=== PATIENT | female | born 1950 | race Caucasian/White ===

== ENCOUNTER 2023-02-08 10:22 | Outpatient (OUT) | payer MEDICARE, SELFPAY ==
--- NOTE | 2023-02-08 10:33 | MM_ITS ---
Patient: JOHN ENGLE Exam Date: 02/08/2023 : 1950 Gender:F Ordering : DR JACOB NOEL M.D. Admission #: [id number] Family : DR Mervin Chanel D.O. Order #: [id number] CLICK HERE TO VIEW EXAM RADIOLOGY REPORT PROCEDURE: MM TOMOSYNTHESIS DIAGNOSTIC RT COMPARISON: MG MAMM DX 3D RT CAD, 02/05/2022. INDICATIONS: MALIGNANT NEOPLASM OF UPPER OUTER QUADRANT LT BREAST C50.412 Calculator Name NCI Breast Cancer Risk Assessment Tool 5 Year Breast Cancer Risk n/a% Lifetime Breast Cancer Risk n/a% Personal Breast Cancer Yes, Left breast cancer 2012 Personal Ovarian Cancer No Treatments Left mastectomy, radiation, [id number] Family Cancers Father with testicular cancer at age 27. LOCATION: [facility] BREAST COMPOSITION: Scattered areas fibroglandular density. FINDINGS: DIAGNOSTIC CATEGORY 2--BENIGN FINDING. NO CHANGE FROM COMPARISON. T his exam includes additional mammographic views for implant evaluation and shows no visible implant abnormality. Scattered benign-appearing calcifications are present. RIGHT BREAST: No significant suspicious finding. RECOMMENDATIONS: ROUTINE MAMMOGRAM AND CLINICAL EVALUATION IN 12 MONTHS. PLEASE NOTE: A NORMAL MAMMOGRAM DOES NOT EXCLUDE THE POSSIBILITY OF BREAST CANCER. A CLINICALLY SUSPICIOUS PALPABLE LUMP SHOULD BE BIOPSIED. Dictated by: Doug Lott MD on 02/08/2023 at 11:06 Approved by: Doug Lott MD on 02/08/2023 at 11:23
== END 2023-02-08 10:23 | disposition home or self-care (01) ==
LOC: MAMMO 10:23
PROVIDERS: PCP Internal Medicine; Visit Provider Internal Medicine Hematology & Oncology
DX: C50.412 Malignant neoplasm of upper-outer quadrant of left female breast (principal); Z17.1 Estrogen receptor negative status [ER-]; Z90.12 Acquired absence of left breast and nipple
CPT/HCPCS: 77065; G0279

== ENCOUNTER 2023-02-08 11:15 | Outpatient (OUT) | payer MEDICARE, SELFPAY ==
[2023-02-08 12:05] LABS: Chol HDL Ratio 4.2; Cholesterol 240 mg/dL (<=200); HDL Cholesterol 57 mg/dL (40-60); Triglycerides 197 mg/dL (<=150); VLDL CHOLESTEROL 39.4 mg/dL
== END 2023-02-08 11:16 | disposition home or self-care (01) ==
PROVIDERS: PCP Internal Medicine; Visit Provider Internal Medicine Cardiovascular Disease
DX: I10 Essential (primary) hypertension (principal); I42.8 Other cardiomyopathies; I34.0 Nonrheumatic mitral (valve) insufficiency
CPT/HCPCS: 36415; 80061

== ENCOUNTER 2023-02-08 11:17 | Outpatient (OUT) | payer MEDICARE, SELFPAY ==
[2023-02-08 11:52] LABS: Basophils Absolute Auto 0.1 10^3/uL (0.0-0.1); Basophils Percent Auto 0.7 % (0.2-2.0); Eosinophils Absolute Auto 0.2 10^3/uL (0.0-0.7); Eosinophils Percent Auto 2.4 % (0.9-7.0); Hemoglobin 12.8 g/dL (12.0-16.0); Immature Granulocytes Abs Auto 0.02 10^3/uL (0.00-0.03); Immature Granulocytes Pct Auto 0.3 % (0.0-0.5); Lymphocytes Absolute Auto 1.3 10^3/uL (1.2-3.8); Lymphocytes Percent Auto 19.8 % (20.5-60.0); Mean Corpuscular Hemoglobin 27.6 pg (26.7-34.0); Mean Corpuscular Volume 86.4 fL (81.0-99.0); Mean Platelet Volume 9.5 fL (9.5-13.5); Monocytes Absolute Auto 0.7 10^3/uL (0.3-0.8); Monocytes Percent Auto 11.1 % (1.7-12.0); Neutrophils Absolute Auto 4.4 10^3/uL (1.4-6.5); Neutrophils Percent Auto 65.7 % (43.0-75.0); Platelet Count 295 10^3/uL (150-450); Red Blood Count 4.63 10^6/uL (4.20-5.40); Red Cell Distribution Width 15.5 % (11.0-15.0); White Blood Count 6.7 10^3/uL (4.0-11.0)
[2023-02-08 12:12] LABS: Alanine Aminotransferase 25 U/L (14-59); Albumin Globulin Ratio 0.8; Albumin Level 3.3 g/dL (3.4-5.0); Alkaline Phosphatase 66 U/L (46-116); Anion Gap 8.9; Aspartate Amino Transferase 24 U/L (15-37); Bilirubin Total 0.6 mg/dL (0.2-1.0); Calcium 9.7 mg/dL (8.5-10.1); Carbon Dioxide 33.8 mmol/L (21.0-32.0); Chloride 102 mmol/L (98-107); Estimated GFR (African America >60 (>=60); Estimated GFR (Non-African Ame >60 (>=60); Globulin 3.9 g/dL; Glucose 89 mg/dL (74-106); Potassium 3.7 mmol/L (3.5-5.1); Sodium 141 mmol/L (136-145); Thyroid Stimulating Hormone 1.833 uIU/mL (0.358-3.740); Total Protein 7.2 g/dL (6.4-8.2)
== END 2023-02-08 11:18 | disposition home or self-care (01) ==
LOC: LAB 11:17
PROVIDERS: PCP Internal Medicine; Visit Provider Internal Medicine
DX: I42.8 Other cardiomyopathies (principal); I34.0 Nonrheumatic mitral (valve) insufficiency; I12.9 Hypertensive chronic kidney disease with stage 1 through stage 4 chronic kidney disease, or unspecified chronic kidney disease; R53.83 Other fatigue; N18.31 Chronic kidney disease, stage 3a
CPT/HCPCS: 36415; 80053; 80061; 84443; 85025

== ENCOUNTER 2023-03-03 08:35 | Outpatient (OUT) | payer MEDICARE, SELFPAY ==
[2023-03-03 08:54] LABS: Bilirubin Urine NEGATIVE (NEGATIVE); Blood Urine NEGATIVE (NEGATIVE); Clarity Urine CLEAR (CLEAR); Color Urine YELLOW (YELLOW); Glucose Urine UA NEGATIVE (NEGATIVE); Ketones Urine NEGATIVE (NEGATIVE); Leukocyte Esterase Urine NEGATIVE (NEGATIVE); Nitrite Urine NEGATIVE (NEGATIVE); Protein Urine NEGATIVE (NEG/TRACE); Specific Gravity Urine 1.015 (1.005-1.025)
[2023-03-03 09:01] LABS: Bacteria Urine NONE SEEN #/HPF (NONE SEEN); Cast Seen? NONE SEEN #/LPF (NONE SEEN); Crystals Seen? None Seen #/HPF (None Seen); Mucus Urine NONE SEEN (NONE SEEN); RBC Urine NONE SEEN #/HPF (0-2); Squamous Epithelial Cell Urine RARE #/LPF (NONE/RARE); WBC Urine NONE SEEN #/HPF (NONE SEEN)
== END 2023-03-03 08:36 | disposition home or self-care (01) ==
LOC: LAB 08:37
PROVIDERS: PCP Internal Medicine; Visit Provider Internal Medicine
DX: R30.0 Dysuria (principal)
CPT/HCPCS: 81001; 87086

== ENCOUNTER 2023-03-15 09:25 | Outpatient (OUT) | payer MEDICARE, SELFPAY ==
[2023-03-15 09:49] LABS: Anion Gap 10.1; BUN Creatinine Ratio 38.8; Calcium 8.9 mg/dL (8.5-10.1); Chloride 101 mmol/L (98-107); Estimated GFR (African America 47 (>=60); Estimated GFR (Non-African Ame 39 (>=60); Glucose 84 mg/dL (74-106); Potassium 4.1 mmol/L (3.5-5.1); Sodium 140 mmol/L (136-145)
== END 2023-03-15 09:26 | disposition home or self-care (01) ==
LOC: LAB 09:26
PROVIDERS: PCP Internal Medicine; Visit Provider Internal Medicine Cardiovascular Disease
DX: R60.9 Edema, unspecified (principal)
CPT/HCPCS: 36415; 80048

== ENCOUNTER 2023-06-07 10:30 | Outpatient (RCR) | payer MEDICARE, SELFPAY | END 2023-06-11 10:11 | disposition home or self-care (01) | LOC: PT 10:30 | PROVIDERS: PCP Internal Medicine; Visit Provider Nurse Practitioner Family | DX: M48.062 Spinal stenosis, lumbar region with neurogenic claudication (principal) | CPT/HCPCS: 97110; 97112; 97163 ==

== ENCOUNTER 2023-06-08 14:57 | Outpatient (OUT) | payer MEDICARE, SELFPAY ==
[2023-06-08 15:43] LABS: Anion Gap 10.5; BUN Creatinine Ratio 25.4; Calcium 9.2 mg/dL (8.5-10.1); Carbon Dioxide 32.9 mmol/L (21.0-32.0); Chloride 102 mmol/L (98-107); Estimated GFR (African America 50 (>=60); Estimated GFR (Non-African Ame 42 (>=60); Glucose 92 mg/dL (74-106); Potassium 4.4 mmol/L (3.5-5.1); Sodium 141 mmol/L (136-145)
== END 2023-06-08 14:58 | disposition home or self-care (01) ==
LOC: LAB 15:00
PROVIDERS: PCP Internal Medicine; Visit Provider Internal Medicine
DX: I12.9 Hypertensive chronic kidney disease with stage 1 through stage 4 chronic kidney disease, or unspecified chronic kidney disease (principal); N18.31 Chronic kidney disease, stage 3a
CPT/HCPCS: 36415; 80048; 83880

== ENCOUNTER 2023-09-17 10:04 | Outpatient (OUT) | payer MEDICARE, SELFPAY ==
[2023-09-17 10:50] LABS: Anion Gap 12.5; BUN Creatinine Ratio 42.7; Calcium 9.7 mg/dL (8.5-10.1); Carbon Dioxide 29.7 mmol/L (21.0-32.0); Chloride 102 mmol/L (98-107); Estimated GFR (African America 44 (>=60); Estimated GFR (Non-African Ame 36 (>=60); Glucose 96 mg/dL (74-106); Magnesium 2.5 mg/dL (1.8-2.4); Potassium 4.2 mmol/L (3.5-5.1); Sodium 140 mmol/L (136-145); Thyroid Stimulating Hormone 2.005 uIU/mL (0.358-3.740)
== END 2023-09-17 10:05 | disposition home or self-care (01) ==
LOC: LAB 10:05
PROVIDERS: PCP Internal Medicine; Visit Provider Internal Medicine
DX: G47.62 Sleep related leg cramps (principal); I87.2 Venous insufficiency (chronic) (peripheral); G62.0 Drug-induced polyneuropathy; T45.1X5A Adverse effect of antineoplastic and immunosuppressive drugs, initial encounter
CPT/HCPCS: 36415; 80048; 83735; 84443

== ENCOUNTER 2023-12-14 14:28 | Outpatient (OUT) | payer MEDICARE, SELFPAY ==
--- NOTE | 2023-12-14 14:31 | XR_ITS ---
The [address] [address] Patient Name: JOHN ENGLE MRN: [id number] date: 1950 Sex: F Assigned Patient Location: [facility] Current Patient Location: Accession/Order Number: [id number] Exam Date: 12/14/2023 14:38 Report Date: 12/16/2023 13:13 At the request of: SYLVESTER JACOB Procedure: XR foot LT min 3V PROCEDURE: XR foot LT min 3V HISTORY: Left Foot Pain M79.672 ; dorsal foot pain for several months; no known injury COMPARISON: None. FINDINGS: BONES:Moderate degenerative joint disease of the second through 5th tarsal-metatarsal joints. Bunion formation and mild degenerative joint disease involving the first metatarsophalangeal joint. Large calcaneal plantar spur. SOFT TISSUES:No visible soft tissue swelling. EFFUSION:None visible. OTHER: Negative. XR/XR foot LT min 3V IMPRESSION: 1. Moderate degenerative joint disease and mild bunion formation as detailed above. 2. No acute bone abnormality. Electronically authenticated by: TAMY HOLM Date: 12/16/2023 13:13
== END 2023-12-14 14:29 | disposition home or self-care (01) ==
LOC: RAD 14:28
PROVIDERS: PCP Internal Medicine; Visit Provider Internal Medicine
DX: M79.672 Pain in left foot (principal); M19.072 Primary osteoarthritis, left ankle and foot
CPT/HCPCS: 73630

== ENCOUNTER 2024-02-14 10:24 | Outpatient (OUT) | payer MEDICARE, SELFPAY ==
--- NOTE | 2024-02-14 | MM_ITS ---
Patient Name: JOHN ENGLE MR#: [id number] : 1950 Exam Date: 02/14/2024 Ordering Doctor: DR JACOB NOEL M.D. RADIOLOGY REPORT PROCEDURE: MM TOMOSYNTHESIS DIAGNOSTIC RT COMPARISON: MG MAMM DX 3D RT CAD, 02/05/2022. MM TOMOSYNTHESIS DIAGNOSTIC RT, 02/08/2023. INDICATIONS: Malignant neoplasm of upper-outer quadrant Calculator Name NCI Breast Cancer Risk Assessment Tool 5 Year Breast Cancer Risk n/a% Lifetime Breast Cancer Risk n/a% Personal Breast Cancer Yes, Left breast cancer 2012 Personal Ovarian Cancer No Treatments Left mastectomy, radiation, Family Cancers Father with testicular cancer at age 27. LOCATION: [facility] BREAST COMPOSITION: There are scattered areas of fibroglandular density. FINDINGS: DIAGNOSTIC CATEGORY 2--BENIGN FINDING. NO CHANGE FROM COMPARISON. This exam includes additional mammographic views for implant evaluation and shows no visible implant abnormality. Scattered benign-appearing calcifications are present. RIGHT BREAST: No significant suspicious finding. RECOMMENDATIONS: ROUTINE MAMMOGRAM AND CLINICAL EVALUATION IN 12 MONTHS. PLEASE NOTE: A NORMAL MAMMOGRAM DOES NOT EXCLUDE THE POSSIBILITY OF BREAST CANCER. A CLINICALLY SUSPICIOUS PALPABLE LUMP SHOULD BE BIOPSIED. Dictated by: Doug Lott MD on 02/14/2024 at 11:12 Approved by: Doug Lott MD on 02/14/2024 at 11:15
== END 2024-02-14 10:25 | disposition home or self-care (01) ==
LOC: MAMMO 10:24
PROVIDERS: PCP Internal Medicine; Visit Provider Internal Medicine Hematology & Oncology
DX: C50.412 Malignant neoplasm of upper-outer quadrant of left female breast (principal); Z17.1 Estrogen receptor negative status [ER-]; Z90.12 Acquired absence of left breast and nipple; Z80.43 Family history of malignant neoplasm of testis
CPT/HCPCS: 77065; G0279

== ENCOUNTER 2024-03-23 14:04 | Outpatient (OUT) | payer MEDICARE, SELFPAY ==
--- NOTE | 2024-03-23 14:08 | XR_ITS ---
The [address] [address] Patient Name: JOHN ENGLE MRN: [id number] date: 1950 Sex: F Assigned Patient Location: [facility] Current Patient Location: Accession/Order Number: [id number] Exam Date: 03/23/2024 14:19 Report Date: 03/24/2024 15:50 At the request of: CHUCK COPE Procedure: XR sinus min 3V EXAMINATION: XR sinus min 3V HISTORY: Chronic Sinusitis COMPARISON: No relevant comparison available. FINDINGS: MAXILLARY: Mild mucosal thickening bilaterally. ETHMOID: No appreciable mucosal thickening or fluid level. FRONTAL: Suspect mild mucosal thickening. SPHENOID: No appreciable mucosal thickening or fluid level. OTHER: Negative. XR/XR sinus min 3V IMPRESSION: 1. No fluid levels to suggest acute sinusitis. 2. suspect mild chronic sinusitis of the frontal and maxillary sinuses. Electronically authenticated by: TAMY HOLM Date: 03/24/2024 15:50
== END 2024-03-23 14:05 | disposition home or self-care (01) ==
LOC: RAD 14:04
PROVIDERS: PCP Internal Medicine; Visit Provider Otolaryngology
DX: J32.9 Chronic sinusitis, unspecified (principal)
CPT/HCPCS: 70220

== ENCOUNTER 2024-03-31 09:11 | Outpatient (OUT) | payer MEDICARE, SELFPAY ==
--- OUTSIDE RECORDS SUMMARY | 2024-03-31 09:14 | XMS_ITS | CCD ---
Author Organization [facility] Care Team Providers Care Tree Marker Name Role Phone BRYCE HENDRICKSON Unavailable Unavailable MERVIN JACOB Unavailable Unavailable DO Mervin Jacob Primary Care Provider MD Devin Moreau Attending Provider DO Mervin Jacob Primary Care Provider [phone] MD Devin Moreau Attending Provider Devin Moreau Unavailable Artie Blackburn Unavailable Mervin Jacob Unavailable Unavailable Unavailable DO Mervin Jacob Primary Care Provider MD Devin Moreau Attending Provider [phone] DO Mervin Jacob Primary Care Provider MD Devin Moreau Attending Provider Mervin Jacob DO Primary Care Provider Mervin Jacob Primary Care Unavailabl e Hendrickson, Dr. Bryce Buckley Attending Sangeeta vailable Jonatan, Dr. Bryce Buckley Referring Sangeeta vailable Mervin Jacob Primary Care Unavailabl e Hendrickson, Dr. Bryce Buckley Attending Sangeeta vailable Jonatan, Dr. Bryce Buckley Referring Sangeeta vailable Mervin Jacob Unavailable Vivi Biggs Unavailable LAVON, DR EVELIN Collado Consulting Unavailable NOHEMI, DR AJAY Anglin Admitting Unavailable NIDIA, DR JEFFRIES Primary Care Unavailable NOHEMI, DR AJAY Anglin Attending Unavailable NOHEMI, DR AJAY Anglin Consulting Unavailable ZIEBJUAN CARLOS, DR TAMY Beckman Consulting Unavailable APLINGKIRSTIE Attending Unavailable APLINGKIRSTIE Admitting Unavailable BALL, DR JEFFRIES Primary Care Unavailable APLING, KIRSTIE Madsen Consulting Unavailable BALL, DR JEFFRIES Primary Care Unavailable BALL, DR JEFFRIES Admitting Unavailable BALL, DR JEFFRIES Attending Unavailable BALL, DR JEFFRIES Consulting Unavailable REINECK, DR YOSHI Shah Consulting Unavailabl e REINECK, DR YOSHI Shah Admitting Unavailabl e BALL, DR JEFFRIES Primary Care Unavailable REINECK, DR YOSHI Shah Attending Unavailabl e BALL, DR JEFFRIES Primary Care Unavailable NADERER, DR AYDEE Dey Consulting Unavailable TRISH ., VIVI Attending Unavailable TRISH ., VIVI Admitting Unavailable GEORGIA, SALINA Consulting Unavailable WILSON, EMORY Consulting Unavailable TRISH ., VIVI Consulting Unavailable BALL, DR JEFFRIES Primary Care Unavailable BALL, DR JEFFRIES Admitting Unavailable BALL, DR JEFFRIES Attending Unavailable BALL, DR JEFFRIES Consulting Unavailable Ball, Dr. Mervin Braden Primary Care Bryce Bucio Attending Unavailable Ball, Dr. Mervin Braden Primary Care Bryce Bucio Attending Unavailable DO Mervin Jacob Primary Care Provider MD Devin Moreau Attending Provider Mervin Jacob DO Primary Care Provider Radha Moreau Unavailable DO Mervin Jacob Primary Care Provider MD Devin Moreau Attending Provider MD Radha Moreau Attending Provider NON STAFF Primary Care Provider UnavailMD Jared Allen Other Provider MD Saman Marino Admit Provider MD Saman Marino Attending Provider [phone] PROVIDER, UNKNOWN Attending Unavailable PROVIDER, UNKNOWN Admitting Unavailable MD Devin Moreau Attending Provider DO Mervin Jacob Primary Care Provider JERRICA Biggs Attending Provider Mervin Jacob DO Primary Care Provider Mervin Jacob DO Primary Care Provider NON STAFF Primary Care Provider UnavailJERRICA Berg Attending Provider DO Mervin Jacob Primary Care Provider MD Devin Moreau Attending Provider MD Artie Blackburn Attending Provider Nidia DO Jeffries Primary Care Provider MD Devin Moreau Attending Provider Nidia DO Jeffries Primary Care Provider MD Artie Blackburn Attending Provider Mervin Jacob DO Primary Care Provider MERVIN JACOB E Primary Care Unavailable JOAQUIN MERCADO Referring Unavailable JOAQUIN MERCADO Attending Unavailable NIDIA MERVIN E Primary Care Unavailable JOAQUIN MERCADO Referring Unavailable DO Mervin Jacob Primary Care Provider MD Devin Moreau Attending Provider Moreau Devin E Admitting Unavailable Moreau Devin E Attending Unavailable NON STAFF Primary Care Unavailable Jared Louis Consulting Unavaila Saman Ac Admitting Unavailable Saman Marino Attending Unavailable NON STAFF Primary Care Unavailable Moreau, Devin E Admitting Unavailable Moreau, Devin E Attending Unavailable Ball, Mervin Primary Care Unavailable Moreau, Devin E Admitting Unavailable Moreau, Devin E Attending Unavailable Ball, Mervin Primary Care Unavailable MoreauTerrancee E Attending Unavailable Moreau, Devin E Admitting Unavailable Ball, Mervin Primary Care Unavailable Artie Blackburn Admitting Unavailable Artie Blackburn Attending Unavailable Ball, Mervin Primary Care Unavailable Artie Blackburn Admitting Unavailable Artie Blackburn Attending Unavailable Ball, Mervin Primary Care Unavailable Radha Moreau Admitting Unavailable Radha Moreau Attending Unavailable Moreau, Devin E Admitting Unavailable Moreau, Devin E Attending Unavailable Vivi Biggs Admitting Unavailable Vivi Biggs Attending Unavailable NON STAFF Primary Care Unavailable Moreau, Devin E Admitting Unavailable Moreau, Devin E Attending Unavailable Ball, Mervin Primary Care Unavailable BRYCE HENDRICKSON Referring Unavailable NIDIA, MERVIN E Primary Care Unavailable BRYCE HENDRICKSON Referring Unavailable BALL, MERVIN E Primary Care Unavailable Mervin Jacob MD Primary Care Provider BRYCE HENDRICKSON Attending Unavailable BRYCE HENDRICKSON Referring Unavailable BALL, MERVIN E Primary Care Unavailable ALLEN ENCARNACION Attending Unavailable ALLEN ENCARNACION Attending Unavailable CHUCK COPE Attending Unavailable MERVIN JACOB Referring Unavailable CHUCK COPE Attending Unavailable Allergies Allergy Classification Reported Allergen(s) Allergy Type Date of Onset Reaction(s) Facility HMG-CoA Reductase Inhibitors (statins) (1 source) atorvastatin Drug Allergy 10-19-19 24 [facility] Iodine (and Iodine containting drugs) (1 source) Iodine Drug Allergy 10-19-19 Unknown Reaction [facility] Penicillins (antibiotic) (3 sources) Penicillin Drug Allergy 10-19-19 Unknown Reaction, Comment:Magalie kim [facility] Quinolones (antibiotic) (1 source) levoFLOXacin Drug Allergy 10-19-19 24 Unknown Reaction [facility] (20 sources) atorvastatin; Translations: [atorvastatin] Drug Allergy 09-25-19 22 [facility] (20 sources) Penicillins; Translations: [Penicillins] Allergy to substance 03-05-20 11 [facility] (20 sources) Penicillin G Drug Allergy 06-21-19 24 Unknown, Unknown Reaction [facility] (5 sources) atorvastatin; Translations: [Lipitor] Drug Allergy [facility] 600 DO Work Phone: (5 sources) Hmg-Coa Reductase Inhibitors (Statins); Translations: [Statins] Allergy to drug (finding) [facility] 600 DO Work Phone: (5 sources) atorvastatin; Translations: [ATORVASTATIN CALCIUM] Drug Allergy 03-05-20 11 Itching [facility] (20 sources) Iodine; Translations: [iodine] Drug Allergy 06-21-19 24 Unknown, Unknown Reaction [facility] (1 source) Amoxicillin Drug Allergy [facility] (1 source) Dextroamphetamine Drug Allergy [facility] (20 sources) levoFLOXacin Drug Allergy Unknown [facility] Other (20 sources) Penicillin V Drug Allergy 06-21-19 24 Comment:Magalie kim [facility] (1 source) patient allergy list reviewed by nurse or physicia Propensity to adverse reactions 09-16-19 16 Comment:Done 12Bis Other (5 sources) HMG-CoA reductase inhibitor; Translations: [ZGFKXOE-THI-ACQ REDUCTASE INHIBITORS] Drug Allergy 02-29-20 [facility] Work Phone: (17 sources) levoFLOXacin; Translations: [levofloxacin] Drug Allergy 06-21-19 Unknown Reaction [facility] (1 source) Penicillin Drug Allergy 10-19-19 [facility] (1 source) Penicillin Drug Allergy 10-19-19 [facility] Rep[facility] Medications Current Medications Medication Drug Class(es) Dates Sig (Normalized) Sig (Original) acetaminophen 500 mg oral tablet (20 sources) Start: 04-19-2023 take 500 mg by mouth every four hours Acetaminophen Active 500 MG PO Q4H 0 April 19, 2023 1:00am Start: 04-15-2023 End: 04-19-2023 take 2 tablets by mouth every four hours Acetaminophen (Tylenol) 325 mg Tablet Discontinued 650 MG PO Q4H 0 April 15, 2023 1:00am April 19, 2023 3:08pm Start: 09-24-2021 End: 04-15-2023 take 500 mg by mouth every four hours Acetaminophen Discontinued 500 MG PO Q4H September 24, 2021 12:00am April 15, 2023 9:14am Take with tramadol Start: 09-24-2021 take 500 mg by mouth twice daily Acetaminophen Active 500 MG PO Twice daily September 23, 2021 11:00pm Take with tramadol aspirin 81 mg delayed release oral tablet (20 sources) Platelet Aggregation Inhibitor, Nonsteroidal Anti-inflammatory Drug Start: 05-12-2022 take 81 mg by mouth once daily Aspirin Active 81 MG PO Daily April 09, 2023 1:00am Aspir-Low Active azithromycin 250 mg oral tablet (3 sources) Macrolide Antimicrobial Start: 05-07-2023 Azithromycin 250 MG as directed Orally daily for 5 days May, Active baclofen 20 mg oral tablet (20 sources) gamma-Aminobutyric Acid-ergic Agonist Start: 09-14-2023 take 1 tablet by mouth once daily at bedtime Baclofen Active 0 .ROUTE .COMPLEX 90 September 14, 2023 1:12pm TAKE 1 TABLET BY MOUTH EVERYDAY AT BEDTIME Start: 06-03-2020 End: 09-14-2023 take 20 mg by mouth once daily at bedtime Baclofen Discontinued 20 MG PO Daily at bedtime August 12, 2023 12:00am August 12, 2023 7:49pm Comment on above: Take 1 tablet by kat th daily at bedtime. calcium carbonate 1500 mg oral tablet (5 sources) take 1 tablet by mouth in the morning calcium carbonate (Calcium 600) 600 MG tablet Take 600 mg by mouth in the morning and 600 mg in the evening. Take with meals. Active calcium carbonate 1500 mg / cholecalciferol 0.01 mg oral tablet (20 sources) Vitamin D Start: 2 take 1 tablet by mouth twice daily Calcium Carbonate-Vitamin D3 (Calcium 600 + D(3)) 600 mg-10 mcg (400 unit) Tablet Active 1 TAB PO Twice daily September 24, 2021 12:00am carvedilol 6.25 mg oral tablet (20 sources) alpha-Adrenergic Omi, beta-Adrenergic Omi Start: 4 take 1 tablet by mouth twice daily Carvedilol Active 0 .ROUTE .COMPLEX 180 June 16, 2023 2:53pm TAKE 1 TABLET BY MOUTH TWICE A DAY Start: 06-18-2016 End: 06-16-2023 take 6.25 mg by mouth twice daily Carvedilol Discontinued 6.25 MG PO Twice daily October 04, 2020 12:00am June 16, 2023 2:53pm Comment on above: Take 6.25 mg by mout h twice daily with meals. cetirizine hydrochloride 10 mg oral tablet (9 sources) Histamine-1 Receptor Antagonist Start: 02-29-20 ALLERGY RELIEF, CETIRIZINE, 10 mg tablet 02/28/2021 Active cholecalciferol 0.025 mg oral capsule (5 sources) Vitamin D take 1 capsule by mouth in the morning cholecalciferol (Vitamin D-3) 25 MCG (1000 UT) capsule Take 1,000 Units by mouth in the morning. Active docusate sodium 50 mg / sennosides, skilled nursing 8.6 mg oral tablet (20 sources) Start: 04-15-20 End: 04-19-20 23 take 2 tablets by mouth twice daily Sennosides-Docusate Sodium Active 2 TAB PO Twice daily April 19, 2023 3:07pm doxycycline monohydrate 100 mg oral capsule (11 sources) Tetracycline-class Drug Start: 03-28-20 End: 05-27-19 doxycycline (Monodox) 100 MG capsule Indications: Chronic frontal sinusitis Take 1 capsule (100 mg) by mouth in the morning and 1 capsule (100 mg) before bedtime. Take with at least 8 ounces (large glass) of water, do not lie down for 30 minutes after. 60 capsule 1 03/28/2024 05/27/2024 Active Start: 11-01-2023 take 100 mg by mouth twice daily Doxycycline Hyclate Active 100 MG PO Twice daily 19 02November 01, 2023 12:00am enalapril maleate 2.5 mg oral tablet (20 sources) Angiotensin Converting Enzyme Inhibitor Start: 03-02-2023 End: 03-21-2024 take 2.5 mg by mouth twice daily Enalapril Maleate Active 2.5 MG PO Twice daily March 26, 2023 1:00am fluticasone propionate 0.05 mg/actuat metered dose nasal spray (20 sources) Corticosteroid Start: 01-09-2024 take 2 spray(s) nasal route once daily as needed for congestion Fluticasone Propionate Active 0 .ROUTE .COMPLEX 48 January 09, 2024 8:38am USE 2 SPRAYS IN EACH NOSTRIL ONCE A DAY NEEDED FOR NASAL CONGESTION Start: 10-04-2020 End: 01-09-2024 Fluticasone Propionate Disco ntinued 2 SPRAY INTRANASAL Daily December 15, 2023 1:23pm January 09, 2024 8:38am Start: 01-19-2016 fluticasone (F LONASE) 50 mcg/actuation nasal spray 2 Sprays once daily. 01/19/2016 Active fluticasone (Cut ivate) 0.05 % cream Apply topically 2 (two) times a day. Active take 1 spray(s) nasa l route in the morning fluticasone (Flonase) 50 MCG/ACT nasal spray Administer 1 spray into each nostril in the morning. Shake gently. Before first use, prime pump. After use, clean tip and replace cap.. Active fluticasone (Florian nase) 50 mcg/actuation nasal spray As directed 0 Active Fluticasone Prop ionate 50 MCG/ACT USE 2 SPRAYS IN EACH NOSTRIL ONCE DAILY Nasal Once a day for 90 days Active Fluticasone Prop ionate 50 MCG/ACT USE 2 SPRAYS IN EACH NOSTRIL ONCE DAILY Nasal Once a day for 90 days Active Flonase 50 MCG/A CT SUSP as directed Quantity: 0 Refills: 0 Ordered: 10-Feb-2022 DO Active Comment on above: 2 Sprays once daily. furosemide 20 mg oral tablet (2 sources) Loop Diuretic Start: 04-23-2023 take 1 tablet by mouth every twenty-four hours Furosemide 20 MG 1 tablet Orally Once a day for 30 days Apr, Active gabapentin 300 mg oral capsule (20 sources) Anti-epileptic Agent Start: 06-22-2023 End: 06-16-2024 take 2 capsules by mouth three times daily gabapentin (NEURONTIN) 300 mg capsule Take 2 capsules by mouth three times a day for 360 days. 540 capsule 3 06/22/2023 06/16/2024 Active Start: 09-24-2021 take 600 mg by mouth once luisa y Gabapentin Active 600 MG PO every day at noon September 24, 2021 10:44am Start: 09-24-2021 take 900 mg by mouth twice daily Gabapentin Active 900 MG PO BID@1400,0 September 24, 2021 12:00am Start: 09-24-2021 End: 09-24-2021 Gabapentin Discontinued MG M 2021 12:00am September 24, 2021 10:46am Start: 09-24-2021 take 600 mg by mouth twice daily Gabapentin Active 600 MG PO BID@1400,2200 September 24, 2021 12:00am Start: 10-04-2020 End: 05-06-2023 take 300 mg by mouth once daily in the morning Gabapentin Active 300 MG PO Every morning October 04, 2020 12:00am Start: 10-04-2020 End: 09-24-2021 take 600 mg by mouth once daily at bedtime Gabapentin Discontinued 600 MG PO Daily at bedtime October 04, 2020 12:00am September 24, 2021 10:44am Comment on above: TAKE 1 CAPSULE BY MO UTH IN THE MORNING AND 2 CAPSULES IN THE AFTERNOON AND AT BEDTIME Take 2 capsules by m outh three times a day for 360 days. levoFLOXacin 500 mg oral tablet (2 sources) Quinolone Antimicrobial Start: 2023 End: 2023 take 1 tablet by mouth once daily levoFLOXacin (Levaquin) 500 MG tablet Indications: Chronic sinusitis, unspecified location Take 1 tablet (500 mg) by mouth Daily for 14 days 14 tablet 03/08/2024 03/22/2024 Active loratadine 10 mg oral tablet (8 sources) take 1 tablet by mouth once daily loratadine (Claritin) 10 mg tablet Take 1 tablet (10 mg) by mouth once daily. 0 Active melatonin 10 mg oral tablet (20 sources) Start: 2021 take 10 mg by mouth at bedtime Melatonin Active 10 MG PO Bedtime March 16, 2022 1:00am methylPREDNISolone 4 mg oral tablet (3 sources) Corticosteroid End: 2023 take 1 tablet by mouth in the morning methylPREDNISolone (Medrol) 4 MG tablet Take 4 mg by mouth in the morning. 03/08/2024 Discontinued (Therapy completed) montelukast 10 mg oral tablet (2 sources) Leukotriene Receptor Antagonist Start: 2023 End: 2024 take 1 tablet by mouth at bedtime montelukast (Singulair) 10 MG tablet Indications: Chronic frontal sinusitis Take 1 tablet (10 mg) by mouth at bedtime 90 tablet 3 03/28/2024 03/28/2025 Active Naproxen (6 sources) Nonsteroidal Anti-inflammatory Drug End: 2022 NAPROXEN SODIUM ORAL Take by mouth if needed. 0 03/02/2023 Discontinued (Other) Aleve TABS as ne eded Quantity: 0 Refills: 0 Ordered: 10-Feb-2022 DO Active omeprazole 40 mg delayed release oral capsule (20 sources) Proton Pump Inhibitor Start: 02-24-2024 Omeprazo le Active 0 .ROUTE .COMPLEX February 24, 2024 8:39am TAKE 1 CAPSULE BY MOUTH ONCE A DAY ON EMPTY STOMACH FOLLOWED IN 30 MINUTES BY BREAKFAST FOR 90 DAYS Start: 11-24-2016 End: 02-24-2024 take 20 mg by mouth once daily Omeprazole Discontinued 20 MG PO Daily October 04, 2020 12:00am February 24, 2024 8:40am Omeprazole 40 MG TAKE 1 CAPSULE BY MOUTH ON EMPTY STOMACH FOLLOWED IN 30 MINUTES BY BREAKFAST Oral Once a day for 90 days Active Comment on above: Take 20 mg by mouth once daily. predniSONE 20 mg oral tablet (20 sources) Start: 03-28-2024 End: 04-03-2024 take 1 tablet by mouth in the morning predniSONE (Deltasone) 20 MG tablet Indications: Chronic frontal sinusitis Take 1 tablet (20 mg) by mouth in the morning and 1 tablet (20 mg) before bedtime. Do all this for 6 days. 12 tablet 03/28/2024 04/03/2024 Active Start: 03-08-2024 End: 03-14-2024 take 1 tablet by mouth in the morning predniSONE (Deltasone) 20 MG tablet Indications: Chronic sinusitis, unspecified location Take 1 tablet (20 mg) by mouth in the morning and 1 tablet (20 mg) before bedtime. Do all this for 6 days. 12 tablet 03/08/2024 03/14/2024 Active Start: 01-21-2023 predniSONE 5 M G 1 tablet 3 times a day for 3 days, 1 tablets 2 times a day for 3 days , 1 tablet 1 times a day for 3 days Orally as directed for 9 days Jan, Active Start: 01-07-2023 predniSONE 20 MG 1 tablet Orally twice daily w/ food x 3 days then qd w/ food x 3 days for 6 days Jan, Not-Taking/PRN Start: 04-01-2022 End: 03-26-2023 Prednisone Discontinued 1 do se pk PO per package directions April 01, 2022 1:00am March 26, 2023 2:38pm take 4 tabs for 3 days then take 3 tabs for 3 days then take 2 tabs for 3 days then take 1 tab for 3 days Start: 04-01-2022 End: 03-26-2023 Prednisone Discontinued 1 do se pk PO per package directions April 01, 2022 12:00am March 26, 2023 1:38pm take 4 tabs for 3 days then take 3 tabs for 3 days then take 2 tabs for 3 days then take 1 tab for 3 days Start: 04-01-2022 Prednisone Act segundo 1 dose pk PO per package directions April 01, 2022 1:00am take 4 tabs for 3 days then take 3 tabs for 3 days then take 2 tabs for 3 days then take 1 tab for 3 days Start: 04-01-2022 Prednisone Act segundo 1 dose pk PO per package directions April 01, 2022 12:00am take 4 tabs for 3 days then take 3 tabs for 3 days then take 2 tabs for 3 days then take 1 tab for 3 days Start: 10-09-2021 Prednisone Act segundo 1 dose pk PO per package directions October 09, 2021 12:22pm take 4 tabs for 3 days then take 3 tabs for 3 days then take 2 tabs for 3 days then take 1 tab for 3 days Start: 10-09-2021 End: 03-16-2022 Prednisone Discontinued 1 do se pk PO per package directions October 09, 2021 12:00am March 16, 2022 12:00pm take 4 tabs for 3 days then take 3 tabs for 3 days then take 2 tabs for 3 days then take 1 tab for 3 days Start: 10-09-2021 End: 03-16-2022 Prednisone Discontinued 1 do se pk PO per package directions October 08, 2021 11:00pm March 16, 2022 11:00am take 4 tabs for 3 days then take 3 tabs for 3 days then take 2 tabs for 3 days then take 1 tab for 3 days torsemide 20 mg oral tablet (20 sources) Loop Diuretic Start: 03-02-2023 End: 03-01-2024 take 20 mg by mouth once daily Torsemide Active 20 MG PO Daily March 26, 2023 1:00am take 1 tablet by mouth once luisa y torsemide (Demadex) 10 MG tablet Take 10 mg by mouth Daily Active Comment on above: Take 1 tablet by kat th every afternoon. traMADol hydrochloride 50 mg oral tablet (20 sources) Opioid Agonist Start: 06-29-2023 End: 10-11-2023 take 50 mg by mouth every six hours Tramadol Active 50 MG PO Every 6 hours October 11, 2023 6:08pm Start: 11-04-2021 End: 04-01-2022 take 50 mg by mouth twice daily Tramadol Discontinued 50 MG PO Twice daily March 16, 2022 1:00am April 01, 2022 11:36am Start: 03-18-2021 End: 04-15-2023 take 50 mg by mouth every six hours Tramadol Discontinued 50 MG PO Q6H March 26, 2023 1:00am April 15, 2023 9:14am Start: 10-04-2020 End: 10-09-2021 take 50 mg by mouth twice daily Tramadol Discontinued 50 MG PO Twice daily October 04, 2020 12:00am October 09, 2021 12:22pm Comment on above: every 6 hours as nee ded. traZODone hydrochloride 50 mg oral tablet (20 sources) Serotonin Reuptake Inhibitor Start: take 0.5-1 tablets by mouth once daily at bedtime Trazodone Active 0 .ROUTE .COMPLEX 90 December 31, 2023 1:35pm TAKE 1/2 - 1 TABLET BY MOUTH EVERYDAY AT BEDTIME Start: 12-31-2023 End: 12-31-2023 take 0.5-1 tablets by mouth once daily at bedtime Trazodone Discontinued 50 MG PO Daily at bedtime December 31, 2023 12:00am December 31, 2023 1:35pm 1/2 to 1 tablet Start: 03-26-2023 End: 04-19-2023 take 50 mg by mouth once daily at bedtime Trazodone Discontinued 50 MG PO Daily at bedtime March 26, 2023 1:00am April 19, 2023 3:08pm Completed/Discontinued Medications Medication Drug Class(es) Dates Sig (Normalized) Sig (Original) aluminum hydroxide 40 mg/ml / magnesium hydroxide 40 mg/ml / simethicone 4 mg/ml oral suspension (18 sources) Start: 04-15-2023 End: 04-19-2023 take 1 mL by mouth every four hours Alum-Mag Hydroxide-Simeth (Mag-Al Plus) 200-200-20 mg/5 mL Suspension Discontinued 30 ML PO Q4H 0 April 15, 2023 1:00am April 19, 2023 3:08pm cephalexin 500 mg oral capsule (20 sources) Cephalosporin Antibacterial Start: 10-09-2021 End: 03-16-2022 take 500 mg by mouth three times daily Cephalexin Discontinued 500 MG PO Three times daily October 09, 2021 12:00am March 16, 2022 11:56am cyclobenzaprine hydrochloride 10 mg oral tablet (20 sources) Muscle Relaxant Start: 04-15-2023 End: 05-07-2024 take 10 mg by mouth every eight hours Cyclobenzaprine Discontinued 10 MG PO Every 8 hours 30 April 19, 2023 3:07pm September 07, 2023 7:30am Start: 04-01-2022 End: 03-26-2023 take 10 mg by mouth three times daily Cyclobenzaprine Discontinued 10 MG PO Three times daily 40 April 01, 2022 1:00am March 26, 2023 2:36pm Start: 10-09-2021 End: 03-16-2022 take 10 mg by mouth three times daily Cyclobenzaprine Discontinued 10 MG PO Three times daily 40 October 09, 2021 12:00am March 16, 2022 11:58am hydroCHLOROthiazide 25 mg oral tablet (20 sources) Thiazide Diuretic Start: 04-17-2020 End: 04-19-2023 take 25 mg by mouth once daily Hydrochlorothiazide Discontinued 25 MG PO Daily October 04, 2020 12:00am April 19, 2023 3:08pm End: 03-02-2023 take 1 capsule by mouth once daily hydroCHLOROthiazide (Microzide) 12.5 mg capsule Take 1 capsule (12.5 mg) by mouth once daily. 0 03/02/2023 Discontinued (Therapy completed) Comment on above: Take 25 mg by mouth once daily. iv contrast (will be provided with radiology test) (3 sources) Start: 05-09-2020 End: 06-22-2023 iv contrast (will be provided with radiology test) Indications: Presacral mass MRI Pelvis Inject, intravenously, once for 1 dose. No IV access, insert saline lock prior to the beginning of sedation, infusion, injection of imaging exam. Discontinue saline lock post exam. If Pt has a central line or IVAD, may access for administration according to line specific nursing protocol. Once exam is complete flush line and de-access according to line specific nursing protocol in the MR contrast administration guidelines link. 1 Each 0 05/09/2020 06/22/2023 Discontinued (Discontinued by Patient) Start: 05-09-2020 iv contrast (w ill be provided with radiology test) Indications: Presacral mass MRI Pelvis Inject, intravenously, once for 1 dose. No IV access, insert saline lock prior to the beginning of sedation, infusion, injection of imaging exam. Discontinue saline lock post exam. If Pt has a central line or IVAD, may access for administration according to line specific nursing protocol. Once exam is complete flush line and de-access according to line specific nursing protocol in the MR contrast administration guidelines link. 1 Each 0 05/09/2020 Active Comment on above: MRI Pelvis Inject, i ntravenously, once for 1 dose. No IV access, insert saline lock prior to the beginning of sedation, infusion, injection of imaging exam. Discontinue saline lock post exam. If Pt has a central line or IVAD, may access for administration according to line specific nursing protocol. Once exam is complete flush line and de-access according to line specific nursing protocol in the MR contrast administration guidelines link. latanoprost 0.05 mg/ml ophthalmic solution (20 sources) Prostaglandin Analog Start: End: 2 take 1 drop(s) into the eye(s) once daily Latanoprost Discontinued 1 DROPS EYE-BOTH Daily October 04, 2020 12:00am March 16, 2022 11:59am Start: 11-18-2019 End: 06-23-2023 take 1 drop(s) into the eye(s) once daily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 [address] [place] [address] XRay Report Signed Patient: Renuka Owen MR#: [id number] 982 : 1950 Acct:[id number] Age/Sex: 73 / F ADM Date: 02/08/24 Loc: XD Room: Type: [facility] Attending Dr: Devin Moreau MD Copies to: Devin Moreau MD Ordering Provider: Devin Moreau MD Date of Service: 02/08/24 XR/XR lumbar spine 2-3V*: M47.816 - Spondylosis without myelopathy or radiculopathy... 2 views Lumbar Spine HISTORY: Spondylosis lumbar spine COMPARISON: 10/19/2023 POSTSURGICAL CHANGES: L3-4 posterior fusion hardware. L3-4 and L4-5 interbody fusion changes. No hardware failure. Cholecystectomy. BONY ALIGNMENT: Similar scoliosis HYPERMOBILITY:No bending imaging. LISTHESIS:Similar mild degenerative listhesis FRACTURE: None DEGENERATIVE CHANGES: Similar extensive degenerative changes SOFT TISSUES: Unremarkable BONY MINERALIZATION:[place] te XR/XR lumbar spine 2-3V* IMPRESSION: Stable degenerative and postsurgical changes. Impression dictated by: Alvaro Reid M.D.02/08/2024 3:23 PM Dictation Location: [place] [address] Transcribed By: [facility] 02/08/24 1523 Dictated By: Alvaro Reid DO 02/08/24 1520 Signed By: 02/08/24 1523 Normal [facility] TRANSTHORACIC ECHO (TTE) COM PLETEon 01-18-2024 TRANSTHORACIC ECHO (TTE) COMPLETE [address], Suite [facility], [place] [address] TRANSTHORACIC ECHOCARDIOGRAM REPORT Patient Name: RENUKA OWEN Reading Physician: [id number] Bryce Hendrickson MD, [facility] Study Date: 01/18/2024 Ordering Provider: [id number] BRYCE HENDRICKSON MRN/PID: [id number] Fellow: Nurse: Date of /Age: 8 1950 / 73 years Bilingual Medical Receptionist: MARICEL Gender: F Additional Staff: Height: 154.94 cm Admit Date: Weight: 71.22 kg Admission Status: BSA / BMI: 1.70 m2 / 29.67 kg/m2 Department Location: [facility] Blood Pressure: 110 /68 mmHg Study Type: TRANSTHORACIC ECHO (TTE) COMPLETE Diagnosis/ICD: Nonrheumatic mitral (valve) insufficiency-I34.0 Indication: Abnormal EKG-LBBB, HTN, Overweight CPT Codes: Echo Complete w Full Doppler-[id number] Study Detail: The following Echo studies were performed: 2D, M-Mode, Doppler and color flow. PHYSICIAN INTERPRETATION: Left Ventricle: The left ventricular systolic function is mildly decreased, with a visually estimated ejection fraction of 50%. The left ventricular cavity size is normal. Spectral Doppler shows a normal pattern of left ventricular diastolic filling. There is an elevated mean left atrial pressure. Septal motion suggests conduction abnormalities. Left Atrium: The left atrium is normal in size. Right Ventricle: The right ventricle is normal in size. There is normal right ventricular global systolic function. Right Atrium: The right atrium is normal in size. Aortic Valve: The aortic valve is trileaflet. The aortic valve dimensionless index is 0.53. There is no evidence of aortic valve regurgitation. The peak instantaneous gradient of the aortic valve is 9.0 mmHg. The mean gradient of the aortic valve is 5.0 mmHg. Mitral Valve: The mitral valve is moderately thickened. There is moderate mitral valve regurgitation. Tricuspid Valve: The tricuspid valve is structurally normal. There is mild to moderate tricuspid regurgitation. Estimated RVSP 43 mmHg consistent with mild pulmonary hypertension. Pulmonic Valve: The pulmonic valve is structurally normal. There is no indication of pulmonic valve regurgitation. Pericardium: No pericardial effusion noted. Aorta: The aortic root is normal. Systemic Veins: The inferior vena cava appears normal in size. In comparison to the previous echocardiogram(s): When compared to study from 01/25/2023, no significant interval changes were seen. CONCLUSIONS: 1. The left ventricular systolic function is mildly decreased, with a visually estimated ejection fraction of 50%. 2. There is an elevated mean left atrial pressure. 3. Septal motion suggests conduction abnormalities. 4. There is normal right ventricular global systolic function. 5. The mitral valve is moderately thickened. 6. Moderate mitral valve regurgitation. 7. Estimated RVSP 43 mmHg consistent with mild pulmonary hypertension. 8. Mild to moderate tricuspid regurgitation. QUANTITATIVE DATA SUMMARY: 2D MEASUREMENTS: Normal Ranges: Ao Root d: 2.40 cm (2.0-3.7cm) LAs: 3.50 cm (2.7-4.0cm) RVIDd: 3.69 cm (0.9-3.6cm) IVSd: 0.90 cm (0.6-1.1cm) LVPWd: 0.87 cm (0.6-1.1cm) LVIDd: 3.80 cm (3.9-5.9cm) LVIDs: 2.92 cm LV Mass Index: 58.1 g/m2 LV % FS 23.2 % LV SYSTOLIC FUNCTION BY 2D PLANIMETRY (MOD): Normal Ranges: EF-A4C View: 65 % (>=55%) EF-A2C View: 63 % EF-Biplane: 61 % EF-Visual: 50 % LV EF Reported: 50 % LV DIASTOLIC FUNCTION: Normal Ranges: MV Peak E: 1.15 m/s (0.7-1.2 m/s) MV Peak A: 1.40 m/s (0.42-0.7 m/s) E/A Ratio: 0.82 (1.0-2.2) MV e' 0.082 m/s (>8.0) MV lateral e' 0.11 m/s MV medial e' 0.05 m/s E/e' Ratio: 13.97 (<8.0) MITRAL VALVE: Normal Ranges: MV Vmax: 1.49 m/s (<=1.3m/s) MV peak P.9 mmHg (<5mmHg) MV mean P.0 mmHg (<48mmHg) MITRAL INSUFFICIENCY: Normal Ranges: MR Vmax: 469.00 cm/s dP/dt: 454 mmHg/s (>1200mmHg/sec) AORTIC VALVE: Normal Ranges: AoV Vmax: 1.50 m/s (<=1.7m/s) AoV Peak P.0 mmHg (<20mmHg) AoV Mean P.0 mmHg (1.7-11.5mmHg) LVOT Max Benjamin: 0.72 m/s (<=1.1m/s) AoV VTI: 31.50 cm (18-25cm) LVOT VTI: 16.60 cm LVOT Diameter: 1.90 cm (1.8-2.4cm) AoV Area, VTI: 1.49 cm2 (2.5-5.5cm2) AoV Area,Vmax: 1.36 cm2 (2.5-4.5cm2) AoV Dimensionless Index: 0.53 TRICUSPID VALVE/RVSP: Normal Ranges: Peak TR Velocity: 2.86 m/s RV Syst Pressure: 36 mmHg (< 30mmHg) PULMONIC VALVE: Normal Ranges: PV Max Benjamin: 0.7 m/s (0.6-0.9m/s) PV Max P.8 mmHg [id number] Bryce Hendrickson MD, [facility] Electronically signed on 02/02/2024 at 4:37:36 PM Final [facility] CNPMalinda 01-06-2024 CNPN Telephone (HEMTSA) RENUKA OWEN ([id number]) 1950 F Date Time Provider Department 01/06/24 MERCED WILL During your visit today, we recorded the following information about you: Merced Will RN 01/06/2024 11:46 AM Signed Pt calls to ask when her mammogram is due. Pt's record reviewed. Last Mamm done on 02/08/23 @ [facility]. 12 month f/u recommended. Order for Mamm faxed to [facility] on 06/22/23. Pt notified of the above. Advised she call [facility] to schedule. Pt verbalizes understanding and agrees. Merced Will RN Allergies As of Date: 01/06/2024 Noted Allergy Reaction PENICILLINS 03/05/2011 4 - Hives LIPITOR (ATORVASTATIN CALCIUM) 03/05/2011 9 - Itching Date Reviewed: 05/19/2022 Reviewed by: Alexandra Bueno MA - Fully Assessed Reason for Visit: Radiology Mammogram [1485] Prescriptions as of 01/06/2024 - torsemide (DEMADEX) 20 mg tablet Take 1 tablet by mouth every afternoon. - gabapentin (NEURONTIN) 300 mg capsule Take 2 capsules by mouth three times a day for 360 days. - gabapentin (NEURONTIN) 300 mg capsule TAKE 1 CAPSULE BY MOUTH IN THE MORNING AND 2 CAPSULES IN THE AFTERNOON AND AT BEDTIME - ALLERGY RELIEF, CETIRIZINE, 10 mg tablet - traMADol (ULTRAM) 50 mg tablet every 6 hours as needed. - baclofen (LIORESAL) 20 mg tablet Take 1 tablet by mouth daily at bedtime. - hydroCHLOROthiazide (HYDRODIURIL, ESIDRIX) 25 mg tablet Take 25 mg by mouth once daily. - omeprazole (PRILOSEC) 20 mg capsule Take 20 mg by mouth once daily. - carvedilol (COREG) 6.25 mg tablet Take 6.25 mg by mouth twice daily with meals. - fluticasone (FLONASE) 50 mcg/actuation nasal spray 2 Sprays once daily. 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,*03/30/2012 Breast cancer [C50.919] 03/30/2012 Breast cancer, left breast [C50.912] Hypercholesteremia [E78.00] Hypertension [I10] Osteoarthritis [M19.90] Bundle branch block, left [I44.7] Mild depression [F32.A] S/P left mastectomy [Z90.12] History of breast cancer [Z85.3] 10/09/2014 GERD (gastroesophageal reflux disease) [K21.9] 06/03/2020 CKD (chronic kidney disease) [N18.9] 06/03/2020 Obesity, Class I, BMI 30-34.9 [E66.9] 06/18/2020 Rectal tumor [D49.0] 06/19/2020 06/20/2020 Encounter Status:Closed by MERCED WILL on 01/06/24 Normal [facility] XR lumbar spine 2-3V*on 10-01 XR lumbar spine 2-3V* [facility] [address] [place] [address] XRay Report Signed Patient: Renuka Owen MR#: [id number] 982 : 1950 Acct:[id number] Age/Sex: 72 / F ADM Date: 10/19/23 Loc: XD Room: Type: [facility] Attending Dr: Devin Moreau MD Copies to: Devin Moreau MD Ordering Provider: Devin Moreau MD Date of Service: 10/19/23 XR/XR lumbar spine 2-3V*: M51.36 - Other intervertebral disc degeneration, lumbar r... LUMBAR SPINE - 2 views COMPARISON: 07/20/2023 CLINICAL DATA: Low back pain. Follow-up after surgery. AP and lateral standing views were obtained. There is osteopenia. Levoscoliotic curvature is again noted. There is prior laminectomy at L4 and L5. There are posterior rods at L3-4. There are interbody fusion devices at L3-4 and L4-5. The hardware appears intact and unchanged from the prior. There is continued slight retrolisthesis of L1 on L2 and L2 on L3 and anterolisthesis of L4 on L5 and L5 on S1. There is disc space narrowing at the unfused levels. There are small endplate spurs. There is facet disease. The SI joints are intact. No paraspinal soft tissue abnormalities are present. XR/XR lumbar spine 2-3V* IMPRESSION: OSTEOPENIA, SCOLIOSIS, POSTOPERATIVE AND DEGENERATIVE CHANGES SIMILAR TO THE PRIOR. Impression dictated by: Megan Wang M.D.10/19/2023 2:51 PM Dictation Location: [place] [address] Transcribed By: [facility] 10/19/23 1451 Dictated By: Megan Wang MD 10/19/23 1443 Signed By: 10/19/23 1451 Normal [facility] Estimated glomerular filtrat ion rate (GFR) non- Americanon 09-17-2023 GFR/1.73 sq M.predicted among non-blacks MDRD (S/P/Bld) [Vol rate/Area] 36 mL/min/{1.73_m2} Low >=60 [facility] Laboratory - Chemistry and C hemistry - challengeon 09-17-2023 Calcium [Mass/Vol] 9.7 mg/dL 8.5-10.1 [facility] Chloride [Moles/Vol] 102 mmol/L 98-107 [facility] CO2 [Moles/Vol] 29.7 mmol/L 21.0-32.0 [facility] Creatinine [Mass/Vol] 1.43 mg/dL High 0.55-1.02 [facility] GFR/1.73 sq M.predicted MDRD (S/P/Bld) [Vol rate/Area] 44 mL/min/{1.73_m2} Low >=60 [facility] Glucose [Mass/Vol] 96 mg/dL 74-106 [facility] Magnesium [Mass/Vol] 2.5 mg/dL High 1.8-2.4 [facility] Potassium [Moles/Vol] 4.2 mmol/L 3.5-5.1 [facility] Sodium [Moles/Vol] 140 mmol/L 136-145 [facility] TSH Qn 2.005 m[IU]/L 0.358-3.740 [facility] Urea nitrogen [Mass/Vol] 61.0 mg/dL High 7.0-18.0 [facility] Urea nitrogen/Creatinine [Mass ratio] 42.7 mg/mg [facility] Serum or plasma anion gap de terminationon 09-17-2023 Anion gap [Moles/Vol] 12.5 mmol/L [facility] XR lumbar spine 2-3V*on 07-01 XR lumbar spine 2-3V* [facility] [place] [place] [address] XRay Report Signed Patient: Renuka Owen MR#: [id number] 982 : 1950 Acct:[id number] Age/Sex: 72 / F ADM Date: 07/20/23 Loc: XD Room: Type: [facility] Attending Dr: Devin Moreau MD Copies to: Devin Moreau MD Ordering Provider: Devin Moreau MD Date of Service: 07/20/23 XR/XR lumbar spine 2-3V*: M43.16 - Spondylolisthesis, lumbar region LUMBAR SPINE - 2 views COMPARISON: 05/26/2023 CLINICAL DATA: Follow-up lumbar fusion. Low back pain. Standing AP and lateral views were obtained. There is osteopenia. Thoracolumbar levoscoliotic curvature is again noted. There is prior laminectomy and fusion with posterior rods, pedicle screws and an interbody fusion device at L3-4. There is also an interbody fusion device at L4-5. No acute fractures are noted. There is still approximately 4 mm of retrolisthesis of L2 on L3 and anterolisthesis of L4 on L5. There is also minor anterolisthesis of L5 on S1. There is multilevel disc space narrowing. Tiny endplate spurs are present. Facet disease is also seen. The SI joints are intact. No paraspinal soft tissue abnormalities are present. XR/XR lumbar spine 2-3V* IMPRESSION: OSTEOPENIA, SCOLIOSIS, POSTOPERATIVE AND DEGENERATIVE CHANGES. FINDINGS ARE SIMILAR TO THE COMPARISON. Impression dictated by: Megan Wang M.D.07/20/2023 12:41 PM Dictation Location: [place] [address] Transcribed By: [facility] 07/20/23 1241 Dictated By: Megan Wang MD 07/20/23 1239 Signed By: 07/20/23 1241 Normal [facility] Basophils Auto (Bld) [#/Vol] on 06-22-2023 Basophils (Bld) [#/Vol] 0.05 10*3/uL <0.11 [facility] Basophils/100 WBC Auto (Bld) on 06-22-2023 Basophils/100 WBC (Bld) 0.8 % F [facility] Blood manual differential co mment interpretation narrativeon 06-22-2023 Manual differential comment Mckay (Bld) [Interp] Auto [facility] CBC W Auto Differential pane l (Bld)on 06-22-2023 Basophils (Bld) [#/Vol] 0.05 10*3/uL Normal <0.11 [facility] Comment on above: Order Comment: Speci men Type: BLOOD SPECIMEN Ordering Facility: [facility] Address: [address] [place] [address] Performed By: #### 5 7021-8 #### [facility] CLIA [id number] [address] [place] [address]48 Basophils/100 WBC (Bld) 0.8 % Normal [facility] Comment on above: Order Comment: Speci men Type: BLOOD SPECIMEN Ordering Facility: [facility] Address: [address] [place] [address] Performed By: #### 5 7021-8 #### [facility] CLIA [id number] [address] [place] [address] 03287 Differential cell count method Nom (Bld) Auto Normal [facility] Comment on above: Order Comment: Speci men Type: BLOOD SPECIMEN Ordering Facility: [facility] Address: [address] [place] [address] Performed By: #### 5 7021-8 #### [facility] CLIA [id number] [address] [place] [address] 94734 Eosinophils (Bld) [#/Vol] 0.37 10*3/uL Normal <0.46 [facility] Comment on above: Order Comment: Speci men Type: BLOOD SPECIMEN Ordering Facility: [facility] Address: [address] [place] [address] Performed By: #### 5 7021-8 #### [facility] CLIA [id number] [address] [place] [address] 00711 Eosinophils/100 WBC (Bld) 5.8 % Normal [facility] Comment on above: Order Comment: Speci men Type: BLOOD SPECIMEN Ordering Facility: [facility] Address: [address] [place] [address] Performed By: #### 5 7021-8 #### [facility] CLIA [id number] [address] [place] [address] 48362 Erythrocyte distribution width (RBC) [Ratio] 14.9 % Normal 11.5-15.0 [facility] Comment on above: Order Comment: Speci men Type: BLOOD SPECIMEN Ordering Facility: [facility] Address: [address] [place] [address] Performed By: #### 5 7021-8 #### [facility] CLIA [id number] [address] [place] [address] 26127 Hematocrit (Bld) [Volume fraction] 36.0 % Normal 36.0-46.0 [facility] Comment on above: Order Comment: Speci men Type: BLOOD SPECIMEN Ordering Facility: [facility] Address: [address] [place] [address] Performed By: #### 5 7021-8 #### [facility] CLIA [id number] [address] [place] [address] 83630 Hemoglobin (Bld) [Mass/Vol] 11.4 g/dL Low 11.5-15.5 [facility] Comment on above: Order Comment: Speci men Type: BLOOD SPECIMEN Ordering Facility: [facility] Address: [address] [place] [address] Performed By: #### 5 7021-8 #### [facility] CLIA [id number] [address] [place] [address] 48695 Immature granulocytes (Bld) [#/Vol] 10*3/uL Normal <0.10 [facility] Comment on above: Order Comment: Speci men Type: BLOOD SPECIMEN Ordering Facility: [facility] Address: [address] [place] [address] Performed By: #### 5 7021-8 #### [facility] CLIA [id number] [address] [place] [address] 60387 Immature granulocytes/100 WBC (Bld) 0.2 % Normal [facility] Comment on above: Order Comment: Speci men Type: BLOOD SPECIMEN Ordering Facility: [facility] Address: [address] [place] [address] Performed By: #### 5 7021-8 #### [facility] CLIA [id number] [address] [place] [address] 15801 Lymphocytes (Bld) [#/Vol] 1.86 10*3/uL Normal 1.00-4.00 [facility] Comment on above: Order Comment: Speci men Type: BLOOD SPECIMEN Ordering Facility: [facility] Address: [address] [place] [address] Performed By: #### 5 7021-8 #### [facility] CLIA [id number] [address] [place] [address] 67487 Lymphocytes/100 WBC (Bld) 28.9 % Normal [facility] Comment on above: Order Comment: Speci men Type: BLOOD SPECIMEN Ordering Facility: [facility] Address: [address] [place] [address] Performed By: #### 5 7021-8 #### [facility] CLIA [id number] [address] [place] [address] 41608 MCH (RBC) [Entitic mass] 27.5 pg Normal 26.0-34.0 [facility] Comment on above: Order Comment: Speci men Type: BLOOD SPECIMEN Ordering Facility: [facility] Address: [address] [place] [address] Performed By: #### 5 7021-8 #### [facility] CLIA [id number] [address] [place] [address] 79052 MCHC (RBC) [Mass/Vol] 31.7 g/dL Normal 30.5-36.0 [facility] Comment on above: Order Comment: Speci men Type: BLOOD SPECIMEN Ordering Facility: [facility] Address: [address] [place] [address] Performed By: #### 5 7021-8 #### [facility] CLIA [id number] [address] [place] [address] 96044 MCV (RBC) [Entitic vol] 86.7 fL Normal 80.0-100.0 C [facility] Comment on above: Order Comment: Speci men Type: BLOOD SPECIMEN Ordering Facility: [facility] Address: [address] [place] [address] Performed By: #### 5 7021-8 #### [facility] CLIA [id number] [address] [place] [address] Monocytes (Bld) [#/Vol] 0.72 10*3/uL Normal <0.87 [facility] Comment on above: Order Comment: Speci men Type: BLOOD SPECIMEN Ordering Facility: [facility] Address: [address] [place] [address] Performed By: #### 5 7021-8 #### [facility] CLIA [id number] [address] [place] [address] 94465 Monocytes/100 WBC (Bld) 11.2 % Normal [facility] Comment on above: Order Comment: Speci men Type: BLOOD SPECIMEN Ordering Facility: [facility] Address: [address] [place] [address] Performed By: #### 5 7021-8 #### [facility] CLIA [id number] [address] [place] [address] 39488 Neutrophils (Bld) [#/Vol] 3.42 10*3/uL Normal 1.45-7.50 [facility] Comment on above: Order Comment: Speci men Type: BLOOD SPECIMEN Ordering Facility: [facility] Address: [address] [place] [address] Performed By: #### 5 7021-8 #### [facility] CLIA [id number] [address] [place] [address] 03293 Neutrophils/100 WBC (Bld) 53.1 % Normal [facility] Comment on above: Order Comment: Speci men Type: BLOOD SPECIMEN Ordering Facility: [facility] Address: [address] [place] [address] Performed By: #### 5 7021-8 #### [facility] CLIA [id number] [address] [place] [address] 20394 Nucleated RBC (Bld) [#/Vol] 10*3/uL Normal <0.01 [facility] Comment on above: Order Comment: Speci men Type: BLOOD SPECIMEN Ordering Facility: [facility] Address: [address] [place], [place] [address] Performed By: #### 5 7021-8 #### [facility] CLIA [id number] [address] [place] [address] 09613 Nucleated RBC/100 WBC (Bld) [Ratio] 0.0 /100 WBC Normal [facility] Comment on above: Order Comment: Speci men Type: BLOOD SPECIMEN Ordering Facility: [facility] Address: [address] [place] [address] Performed By: #### 5 7021-8 #### [facility] CLIA [id number] [address] [place] [address] 66248 Platelet mean volume (Bld) [Entitic vol] 9.2 fL Normal 9.0-12.7 [facility] Comment on above: Order Comment: Speci men Type: BLOOD SPECIMEN Ordering Facility: [facility] Address: [address] [place] [address] Performed By: #### 5 7021-8 #### [facility] CLIA [id number] [address] [place] [address] 28173 Platelets (Bld) [#/Vol] 286 10*3/uL Normal 150-400 [facility] Comment on above: Order Comment: Speci men Type: BLOOD SPECIMEN Ordering Facility: [facility] Address: [address] [place] [address] Performed By: #### 5 7021-8 #### [facility] CLIA [id number] [address] [place] [address] 90750 RBC (Bld) [#/Vol] 4.15 10*6/uL Normal 3.90-5.20 [facility] Comment on above: Order Comment: Speci men Type: BLOOD SPECIMEN Ordering Facility: [facility] Address: [address] [place] [address] Performed By: #### 5 7021-8 #### [facility] CLIA [id number] [address] [place] [address] 43009 WBC (Bld) [#/Vol] 6.43 10*3/uL Normal 3.70-11.00 [facility] Comment on above: Order Comment: Speci men Type: BLOOD SPECIMEN Ordering Facility: [facility] Address: [address] [place] [address] Performed By: #### 5 7021-8 #### [facility] CLIA [id number] [address] [place] [address] 16720 CNOVSPon 06-22-2023 CNOVSP Visit (SP) Office (HEMASA) RENUKA OWEN ([id number]) 1950 F Date Time Provider Department 06/22/23 1:45 PM JOAQUIN MERCADO During your visit today, we recorded the following information about you: Temperature Pulse Respiration Blood pressure 97.6 degrees 67/minute 16/minute 111/57 Weight Height 70.6 kg 1.575 m Joaquin Mercaod MD 06/23/2023 7:33 AM Signed PATIENT NAME: Renuka Owen DATE: 06/22/2023 PRIMARY CARE PHYSICIAN: Dr. Mervin Jacob OTHER PHYSICIANS: Dr. Coley, Dr. Artur Sutherland, Dr. Snyder, Dr. Ortega Portions of this encounter note have been copied from the note from 05/19/2022 and has been updated where appropriate, and reflect my current medical decision making from today. CC: This is a 72 year old female with a history of breast cancer, seen for scheduled follow-up. INTERIM HISTORY: Since the patient's last visit here she underwent spinal surgery per Dr. Moreau for her chronic lower back pain, and her pain has improved. However, she continues to have significant neuropathic symptoms of her feet. Predominantly she has shooting pain intermittently down her legs to her toes bilaterally. Her feet also remain numb. On her current dose of Neurontin her symptoms have slowly worsened. Otherwise no significant medical changes. No changes in her right breast or left breast implant. No recurrent chest pain or other signs of pleurisy. MEDICATIONS: gabapentin (NEURONTIN) 300 mg capsule TAKE 1 CAPSULE BY MOUTH IN THE MORNING AND 2 CAPSULES IN THE AFTERNOON AND AT BEDTIME ALLERGY RELIEF, CETIRIZINE, 10 mg tablet traMADol (ULTRAM) 50 mg tablet every 6 hours as needed. baclofen (LIORESAL) 20 mg tablet Take 1 tablet by mouth daily at bedtime. hydroCHLOROthiazide (HYDRODIURIL, ESIDRIX) 25 mg tablet Take 25 mg by mouth once daily. iv contrast (will be provided with radiology test) MRI Pelvis Inject, intravenously, once for 1 dose. No IV access, insert saline lock prior to the beginning of sedation, infusion, injection of imaging exam. Discontinue saline lock post exam. If Pt has a central line or IVAD, may access for administration according to line specific nursing protocol. Once exam is complete flush line and de-access according to line specific nursing protocol in the MR contrast administration guidelines link. (Patient not taking: Reported on 05/19/2022) latanoprost (XALATAN) 0.005 % ophthalmic solution INSTILL 1 DROP INTO BOTH EYES EVERY DAY DIRECTED omeprazole (PRILOSEC) 20 mg capsule Take 20 mg by mouth once daily. carvedilol (COREG) 6.25 mg tablet Take 6.25 mg by mouth twice daily with meals. fluticasone (FLONASE) 50 mcg/actuation nasal spray 2 Sprays once daily. ALLERGIES: Penicillins and Lipitor [Atorvastatin Calcium] PAST MEDICAL HISTORY: PAST MEDICAL HISTORY Diagnosis Date Breast cancer, left breast (HCC) Bundle branch block left 05/03/2007 Hypercholesteremia Hypertension Mild depression Osteoarthritis 05/03/1989 PONV (postoperative nausea and vomiting) S/P left mastectomy PAST SURGICAL HISTORY: PAST SURGICAL HISTORY Procedure Laterality Date ARTHRP KNE CONDYLEANDPLATU MEDIALANDLAT COMPARTMENTS 05/03/2006 bilateral BACK SURGERY HX 05/03/1995 BREAST BIOPSY CORE 03/11/2011 left breast BREAST RECONSTRUC W TISS EXPANDR 06/26/2011 left breast CHOLECYSTECTOMY 05/03/1975 HYSTERECTOMY HX 05/03/1989 MASTECTOMY, SIMPLE, COMPLETE 06/26/2011 skin-sparing left breast with ALND PAST SURGICAL HISTORY OF Left 2018 rotator cuff surgery TUBAL LIGATION, REVIEW OF SYSTEMS: General: No weight loss, malaise or fevers. HEENT: Negative for frequent or significant headaches. No changes in hearing or vision, no nose bleeds or other nasal problems Respiratory: Negative for cough, wheezing or shortness of breath. Cardiovascular: Negative for chest pain, leg swelling or palpitations. GI: Negative for abdominal discomfort, blood in stools or black stools or change in bowel habits : No history of dysuria, frequency or incontinence Musculoskeletal: Negative for: joint pain or swelling, back pain and muscle pain Skin: Negative for lesions, rash, and itching. Hematology/Lymphology : Negative for prolonged bleeding, bruising easily or swollen nodes. Neuro: No history of paralysis, seizures or tremors. Fainting spell Positive neuropathy- See HPI. PHYSICAL EXAM: Vitals: BP 111/57 Pulse 67 Temp 36.4 ?C (97.6 ?F) (Temporal) Resp 16 Ht 157.5 cm (5' 2.01 ) Wt 70.6 kg (155 lb 10.3 oz) SpO2 96% BMI 28.46 kg/m? ECOG 1 Exam limited to gross visualization where appropriate due to COVID-19. Gen.: This is an age-appropriate patient in no acute distress. Head: Appears atraumatic with no visible lesions. Eyes: Pupils equally round and reactive to light, extraocular muscles are intact. Neck: Supple. Mouth: Muco (more content not included)... Normal [facility] Cancer Ag27-29 SerPl-aCncon 06-22-2023 Cancer Ag 27-29 Qn 22.2 [arb'U]/mL Normal <38.6 C [facility] Comment on above: Order Comment: Speci men Type: BLOOD SPECIMEN Ordering Facility: [facility] Address: [address] [place] [address] Result Comment: The CA27.29 test was performed using the Siemens Centaur XP chemiluminometric immunoassay method. Results obtained with different assay methods or kits cannot be used interchangeably. Performed By: #### 1 7842-6 #### [facility] CLIA [id number] [address] [place], [place] [address] [address] [place] Comprehensive metabolic 2000 panelon 06-22-2023 Albumin [Mass/Vol] 4.4 g/dL Normal 3.9-4.9 [facility] Comment on above: Order Comment: Speci men Type: BLOOD SPECIMEN Ordering Facility: [facility] Address: [address] [id number] Performed By: #### 2 4323-8 #### [facility] CLIA [id number] [address] [place] [address] ALP [Catalytic activity/Vol] 67 U/L Normal 34-123 [facility] Comment on above: Order Comment: Speci men Type: BLOOD SPECIMEN Ordering Facility: [facility] Address: [address] [id number] Performed By: #### 2 4323-8 #### [facility] CLIA [id number] [address] [place] [address] ALT [Catalytic activity/Vol] 8 U/L Normal 7-38 [facility] Comment on above: Order Comment: Speci men Type: BLOOD SPECIMEN Ordering Facility: [facility] Address: [address] [place] [address] Performed By: #### 2 4323-8 #### [facility] CLIA [id number] [address] [place] [address] Anion gap [Moles/Vol] 9 mmol/L Normal 9-18 [facility] Comment on above: Order Comment: Speci men Type: BLOOD SPECIMEN Ordering Facility: [facility] Address: [address] [id number] Performed By: #### 2 4323-8 #### [facility] CLIA [id number] [address] [place] [address] AST [Catalytic activity/Vol] 16 U/L Normal 13-35 [facility] Comment on above: Order Comment: Speci men Type: BLOOD SPECIMEN Ordering Facility: [facility] Address: [address] [place], [place] [id number] Performed By: #### 2 4323-8 #### [facility] CLIA [id number] [address] [place] [address] Bilirubin [Mass/Vol] 0.4 mg/dL Normal 0.2-1.3 [facility] Comment on above: Order Comment: Speci men Type: BLOOD SPECIMEN Ordering Facility: [facility] Address: [address] [place] [address] Performed By: #### 2 4323-8 #### [facility] CLIA [id number] [address] [place] [address] Calcium [Mass/Vol] 10.6 mg/dL High 8.5-10.2 [facility] Comment on above: Order Comment: Speci men Type: BLOOD SPECIMEN Ordering Facility: [facility] Address: [address] [place] [address] Performed By: #### 2 4323-8 #### [facility] CLIA [id number] [address] [place] [address] Chloride [Moles/Vol] 99 mmol/L Normal 97-105 [facility] Comment on above: Order Comment: Speci men Type: BLOOD SPECIMEN Ordering Facility: [facility] Address: [address] [phone] Performed By: #### 2 4323-8 #### [facility] CLIA [id number] [address] [place] [address] CO2 [Moles/Vol] 30 mmol/L Normal 22-30 [facility] Comment on above: Order Comment: Speci men Type: BLOOD SPECIMEN Ordering Facility: [facility] Address: [address] [place] [address] Performed By: #### 2 4323-8 #### [facility] CLIA [id number] [address] [place] [address] Creatinine [Mass/Vol] 1.29 mg/dL High 0.58-0.96 [facility] Comment on above: Order Comment: Speci men Type: BLOOD SPECIMEN Ordering Facility: [facility] Address: [address] [id number] Performed By: #### 2 4323-8 #### [facility] CLIA [id number] [address] [place] [address] Creatinine and Glomerular filtration rate.predicted panel (S/P/Bld) 44 mL/min/1.73m??? Low >=60 [facility] Comment on above: Order Comment: Specniru franco Type: BLOOD SPECIMEN Ordering Facility: [facility] Address: [address] [place] [address] Result Comment: Lala mated Glomerular Filtration Rate (eGFR) is calculated using the 2020 CKD-EPI creatinine equation. This equation utilizes serum creatinine, sex, and age as parameters. The creatinine assay has traceable calibration to isotope dilution-mass spectrometry. Refer to KDIGO guidelines for clinical interpretation. In patients with unstable renal function, e.g. those with acute kidney injury, the eGFR may not accurately reflect actual GFR. Performed By: #### 2 4323-8 #### [facility] CLIA [id number] [address] [place] [address] Glucose [Mass/Vol] 109 mg/dL High 74-99 [facility] Comment on above: Order Comment: Speci joan Type: BLOOD SPECIMEN Ordering Facility: [facility] Address: [address] [place] [address] Result Comment: The [place] Diabetes Association (ADA) provides guidance for cutoff values for fasting glucose and random glucose. The ADA defines fasting as no caloric intake for at least 8 hours. Fasting plasma glucose results between 100 to 125 mg/dL indicate increased risk for diabetes (prediabetes). Fasting plasma glucose results greater than or equal to 126 mg/dL meet the criteria for diagnosis of diabetes. In the absence of unequivocal hyperglycemia, results should be confirmed by repeat testing. In a patient with classic symptoms of hyperglycemia or hyperglycemic crisis, random plasma glucose results greater than or equal to 200 mg/dL meet the criteria for diagnosis of diabetes. Reference: Standards of Medical Care in Diabetes 2016, [place] Diabetes Association. Diabetes Care. 2016.39(Suppl 1). Performed By: #### 2 4323-8 #### [facility] CLIA [id number] [address] [place] [address] Potassium [Moles/Vol] 4.8 mmol/L Normal 3.7-5.1 [facility] Comment on above: Order Comment: Speci men Type: BLOOD SPECIMEN Ordering Facility: [facility] Address: [address] [place] [address] Performed By: #### 2 4323-8 #### [facility] CLIA [id number] [address] [place] [address] Protein [Mass/Vol] 7.3 g/dL Normal 6.3-8.0 [facility] Comment on above: Order Comment: Speci men Type: BLOOD SPECIMEN Ordering Facility: [facility] Address: [address] [phone] Performed By: #### 2 4323-8 #### [facility] CLIA [id number] [address] [place] [address] Sodium [Moles/Vol] 138 mmol/L Normal 136-144 [facility] Comment on above: Order Comment: Speci men Type: BLOOD SPECIMEN Ordering Facility: [facility] Address: [address] [place], [place] [id number] Performed By: #### 2 4323-8 #### [facility] CLIA [id number] [address] [place] [address] Urea nitrogen [Mass/Vol] 45 mg/dL High 7-21 [facility] Comment on above: Order Comment: Speci men Type: BLOOD SPECIMEN Ordering Facility: [facility] Address: [address] [place], [place] [address] Performed By: #### 2 4323-8 #### [facility] CLIA [id number] [address] [place] [address] Eosinophils/100 WBC Auto (Bl d)on 06-22-2023 Eosinophils/100 WBC (Bld) 5.8 % [facility] Erythrocyte distribution wid th Auto (RBC) [Ratio]on 06-22-2023 Erythrocyte distribution width (RBC) [Ratio] 14.9 % 11.5-15.0 [facility] Hematocrit Auto (Bld) [Volum e fraction]on 06-22-2023 Hematocrit (Bld) [Volume fraction] 36.0 % 36.0-46.0 [facility] Hemoglobin [Mass/volume] in Bloodon 06-22-2023 Hemoglobin (Bld) [Mass/Vol] 11.4 g/dL 11.5-15.5 [facility] Laboratory - Chemistry and C hemistry - challengeon 06-22-2023 Albumin [Mass/Vol] 4.4 g/dL 3.9-4.9 [facility] ALP [Catalytic activity/Vol] 67 U/L 34-123 [facility] ALT [Catalytic activity/Vol] 8 U/L 7-38 [facility] AST [Catalytic activity/Vol] 16 U/L 13-35 [facility] Bilirubin [Mass/Vol] 0.4 mg/dL 0.2-1.3 [facility] Calcium [Mass/Vol] 10.6 mg/dL 8.5-10.2 [facility] Chloride [Moles/Vol] 99 mmol/L 97-105 [facility] CO2 [Moles/Vol] 30 mmol/L 22-30 [facility] Creatinine [Mass/Vol] 1.29 mg/dL 0.58-0.96 [facility] Glucose [Mass/Vol] 109 mg/dL 74-99 [facility] Comment on above: The [place] Diabete s Association (ADA) provides guidance for cutoff values for fasting glucose and random glucose. The ADA defines fasting as no caloric intake for at least 8 hours. Fasting plasma glucose results between 100 to 125 mg/dL indicate increased risk for diabetes (prediabetes).Fasting plasma glucose results greater than or equal to 126 mg/dL meet the criteria for diagnosis of diabetes. In the absence of unequivocal hyperglycemia, results should be confirmed by repeat testing. In a patient with classic symptoms of hyperglycemia or hyperglycemic crisis, random plasma glucose results greater than or equal to 200 mg/dL meet the criteria for diagnosis of diabetes.Reference: Standards of Medical Care in Diabetes 2016, [place] Diabetes Association. Diabetes Care. 2016.39(Suppl 1). Potassium [Moles/Vol] 4.8 mmol/L 3.7-5.1 [facility] Protein [Mass/Vol] 7.3 g/dL 6.3-8.0 [facility] Sodium [Moles/Vol] 138 mmol/L 136-144 [facility] Urea nitrogen [Mass/Vol] 45 mg/dL 7 [facility] Laboratory - Hematology and Cell countson 06-22-2023 Eosinophils (Bld) [#/Vol] 0.37 10*3/uL <0.46 [facility] Immature granulocytes/100 WBC (Bld) 0.2 % [facility] Leukocytes [#/volume] correc adriane for nucleated erythrocytes in Blood by Automated counon 06-22-2023 WBC corrected for nucl RBC Auto (Bld) [#/Vol] 6.43 k/uL 3.70-11.00 [facility] Lymphocytes Auto (Bld) [#/Vo l]on 06-22-2023 Lymphocytes (Bld) [#/Vol] 1.86 10*3/uL 1.00-4.00 [facility] Lymphocytes/100 WBC Auto (Bl d)on 06-22-2023 Lymphocytes/100 WBC (Bld) 28.9 % [facility] MCH Auto (RBC) [Entitic mass ]on 06-22-2023 MCH (RBC) [Entitic mass] 27.5 pg 26.0-34.0 [facility] MCHC Auto (RBC) [Mass/Vol]on 06-22-2023 MCHC (RBC) [Mass/Vol] 31.7 g/dL 30.5-36.0 [facility] MCV Auto (RBC) [Entitic vol] on 06-22-2023 MCV (RBC) [Entitic vol] 86.7 fL 80.0-100.0 [facility] Monocytes Auto (Bld) [#/Vol] on 06-22-2023 Monocytes (Bld) [#/Vol] 0.72 10*3/uL <0.87 [facility] Monocytes/100 WBC Auto (Bld) on 06-22-2023 Monocytes/100 WBC (Bld) 11.2 % [facility] Neutrophils Auto (Bld) [#/Vo l]on 06-22-2023 Neutrophils (Bld) [#/Vol] 3.42 10*3/uL 1.45-7.50 [facility] Neutrophils/100 WBC Auto (Bl d)on 06-22-2023 Neutrophils/100 WBC (Bld) 53.1 % [facility] No Panel Informationon 06-22 CA 27.29 22.2 U/mL <38.6 [facility] Comment on above: The CA27.29 test was performed using the Siemens Pepex Biomedicalaur XP chemiluminometric immunoassay method. Results obtained with different assay methods or kits cannot be used interchangeably. Estimated GFR (CKD-EPI) 44 mL/min/1.73m??? >=60 [facility] Comment on above: Estimated Glomerular Filtration Rate (eGFR) is calculated using the 2020 CKD-EPI creatinine equation. This equation utilizes serum creatinine, sex, and age as parameters. The creatinine assay has traceable calibration to isotope dilution-mass spectrometry. Refer to KDIGO guidelines for clinical interpretation. In patients with unstable renal function, e.g. those with acute kidney injury, the eGFR may not accurately reflect actual GFR. Immature Granulocyte # (Auto) <0.03 k/uL <0.10 [facility] Nucleated RBC Auto (Bld) [#/ Vol]on 06-22-2023 Nucleated RBC (Bld) [#/Vol] 10*3/uL <0.01 [facility] Nucleated erythrocytes [Pres ence] in Blood by Automated counton 06-22-2023 Nucleated RBC Auto Ql (Bld) 0.0 /100{WBC} [facility] Platelet mean volume Auto (B ld) [Entitic vol]on 06-22-2023 Platelet mean volume (Bld) [Entitic vol] 9.2 fL 9.0-12.7 [facility] Platelets Auto (Bld) [#/Vol] on 06-22-2023 Platelets (Bld) [#/Vol] 286 10*3/uL 150-400 [facility] RBC Auto (Bld) [#/Vol]on RBC (Bld) [#/Vol] 4.15 10*6/uL 3.90-5.20 [facility] Serum or plasma anion gap de terminationon 06-22-2023 Anion gap [Moles/Vol] 9 mmol/L 9-18 [facility] XR lumbar spine 2-3V*on 05-04 XR lumbar spine 2-3V* [facility] [employer] [address] [place] [address] XRay Report Signed Patient: Renuka Owen MR#: [id number] : 1950 Acct:[id number] Age/Sex: 72 / F ADM Date: 05/26/23 Loc: XD Room: Type: [facility] Attending Dr: Vivi HERNANDEZC Copies to: JERRICA Mosqueda Ordering Provider: JERRICA Mosqueda Date of Service: 05/26/23 XR/XR lumbar spine 2-3V*: M43.16 XR lumbar spine 2-3V* 05/26/2023 9:57 AM SIGNS AND SYMPTOMS: Follow-up lumbar fusion PROTOCOLS: Frontal and lateral graphs of the lumbar spine COMPARISON: 02/15/2023 FINDINGS: There is 3 mm of retrolisthesis of L2 upon L3.There is no fracture or destructive lesion. There has been interval revision of fusion hardware with removal of the previous L4-5 fusion hardware and placement of posterior and intervertebral fusion hardware at L3-L4. No hardware complication or malalignment. There is moderate to severe disc height loss at L5-S1. There is severe disc height loss with endplate sclerosis at L1-2 with moderate disc height loss at L2-L3. Degenerative changes are noted in the sacroiliac joints. XR/XR lumbar spine 2-3V* IMPRESSION: Interval posterior fusion hardware placement at L3-L4 without hardware complication. Additional degenerative changes are redemonstrated, as above. Impression dictated by: Stalin Patterson M.D.05/26/2023 1:20 PM Dictation Location: [place] [address] Transcribed By: [facility] 05/26/23 1320 Dictated By: Stalin Patterson II, MD 05/26/23 1318 Signed By: 05/26/23 1320 Normal [facility] Progress Noteson 04-22-2023 Capsule Maker Authentication Interface Message Text EMERGENCY TRIAGE, TREAT AND TRANSPORT (ET3) DOCUMENTATION OF TELEHEALTH VISIT Date / Time: 03/06/2023599 Name: Renuka Owen : 1950 SSN: (Not on file) EMS Agency: [facility] [x] Verbal consent obtained [] Implied consent - patient with potential emergency medical condition requiring assessment of capacity to refuse treatment and/or transport VITAL SIGNS: see flowsheet documentation Reason for Telehealth Visit: Chief Complaint Patient presents with Problem with being ill History of Present Illness: 72 yo female PMH Additional pertinent PMHx, SocHx, FamHx: Pmh HTN Review of Systems: Denies the following: CP, SOB, abd pain NVD Exam: General: Awake, no distress ENT: normocephalic, atraumatic Pulmonary: No respiratory distress Cardiovascular: Well perfused Neurologic: Oriented to person, place, time and events. Moving all extremities equally. Psychiatric: Appropriate. Good insight and judgement. Medical Decision Makin yo female with PMH HTN called EMS for feeling ill. No CP. Did have hypotensive measurement on BP. EKG no STEMI. DIscussed w/ pt at length, recommended ED evaluation. Pt expressed understanding of my concern, but prefers transport via private vehicle w/ her son. I think this is reasonable Disposition Supported by Telehealth Assessment: ET3 transport decisions: Refused transport EMS Disposition Reported: Same ET3 Encounter Completed by: Dean Kerns, Normal [facility] Alanine aminotransferase [En zymatic activity/volume] in Serum or PlasmaOrdered By: Jared Louis on 04-16-2023 ALT [Catalytic activity/Vol] 12 U/L Normal 7-52 [facility] Comment on above: Performed By: #### C CARL, PAB, CBC #### [address] Albumin [Mass/volume] in Ser um or Plasma by Bromocresol green (BCG) dye binding methoOrdered By: Jared Louis on 04-16-2023 Albumin BCG dye [Mass/Vol] 3.4 g/dL 3.5-5.7 [facility] Alkaline phosphatase [Enzyma tic activity/volume] in Serum or PlasmaOrdered By: Jared Louis on 04-16-2023 ALP [Catalytic activity/Vol] 45 U/L Normal 34-104 [facility] Comment on above: Performed By: #### C MP, PAB, CBC #### [facility] [address] Aspartate aminotransferase [ Enzymatic activity/volume] in Serum or PlasmaOrdered By: Jared Louis on 04-16-2023 AST [Catalytic activity/Vol] 14 U/L Normal 13-39 [facility] Comment on above: Performed By: #### C MP, PAB, CBC #### [address] Automated basophil %Ordered By: Jared Louis on 04-16-2023 Basophils/100 WBC (Bld) 0.4 % Normal . [facility] Comment on above: Performed By: #### C MP, PAB, CBC #### [address] Automated basophil countOrde red By: Jared Louis on 04-16-2023 Basophils (Bld) [#/Vol] 0.0 10*3/uL Normal 0.0-0.2 [facility] Comment on above: Result Comment: PERF ORMED BY: [place] [address] PATHOLOGIST R&D ENGINEER LUPILLO KHAN M.D. Performed By: #### C MP, PAB, CBC #### [address] Automated blood monocyte cou ntOrdered By: Jared Louis on 04-16-2023 Monocytes (Bld) [#/Vol] 1.4 10*3/uL High 0.0-0.8 [facility] Comment on above: Performed By: #### C MP, PAB, CBC #### [address] Automated eosinophil %Ordere d By: Jared Louis on 04-16-2023 Eosinophils/100 WBC (Bld) 0.3 % Normal . [facility] Comment on above: Performed By: #### C MP, PAB, CBC #### [address] Automated eosinophil countOr dered By: Jared Louis on 04-16-2023 Eosinophils (Bld) [#/Vol] 0.0 10*3/uL Normal 0.0-0.45 [facility] Comment on above: Performed By: #### C MP, PAB, CBC #### [facility] [address] Automated monocyte %Ordered By: Jared Louis on 04-16-2023 Monocytes/100 WBC (Bld) 13.9 % Normal . [facility] Comment on above: Performed By: #### C MP, PAB, CBC #### [facility] [address] Automated neutrophil %Ordere d By: Jared Louis on 04-16-2023 Neutrophils/100 WBC (Bld) 67.0 % Normal . [facility] Comment on above: Performed By: #### C MP, PAB, CBC #### [address] Bilirubin.total [Mass/volume ] in Serum or PlasmaOrdered By: Jared Louis on 04-16-2023 Bilirubin [Mass/Vol] 0.6 mg/dL Normal 0.3-1.0 [facility] Comment on above: Performed By: #### C MP, PAB, CBC #### [address] Calcium [Mass/volume] in Ser um or PlasmaOrdered By: Jared Louis on 04-16-2023 Calcium [Mass/Vol] 9.8 mg/dL Normal 8.6-10.3 [facility] Comment on above: Performed By: #### C MP, PAB, CBC #### [place] [address] [place] Carbon dioxide, total [Moles /volume] in Serum or PlasmaOrdered By: Jared Louis on 04-16-2023 CO2 [Moles/Vol] 32.5 mmol/L High 21.0-31.0 [facility] Comment on above: Performed By: #### C MP, PAB, CBC #### [address] Chloride [Moles/volume] in S ruby or PlasmaOrdered By: Jared Louis on 04-16-2023 Chloride [Moles/Vol] 101 mmol/L Normal 98-107 [facility] Comment on above: Performed By: #### C MP, PAB, CBC #### [address] Complete Blood Count Auto Di ffon 04-16-2023 Mean Corpuscular HGB Conc 33.0 g/dL Normal 32.0-35.0 [facility] Comment on above: Performed By: #### C MP, PAB, CBC #### [address] NRBC% 0.1 /100{WBC} Normal 0-0.5 [facility] Comment on above: Performed By: #### C MP, PAB, CBC #### [address] [facility] [place] 04-16-2023 Albumin [Mass/Vol] 3.4 g/dL Low 3.5-5.7 [facility] Comment on above: Performed By: #### C MP, PAB, CBC #### [address] Creatinine Clr Calc Pharmacy 47.09 Normal [facility] Comment on above: Performed By: #### C MP, PAB, CBC #### [address] GFR/1.73 sq M.predicted MDRD (S/P/Bld) [Vol rate/Area] mL/min/{1.73_m2} Normal [facility] Comment on above: Performed By: #### C MP, PAB, CBC #### [address] Creatinine [Mass/volume] in Serum or PlasmaOrdered By: Jared Louis on 04-16-2023 Creatinine [Mass/Vol] 0.94 mg/dL Normal 0.60-1.20 [facility] Comment on above: Performed By: #### C MP, PAB, CBC #### [facility] [address] Erythrocyte distribution wid th [Ratio] by Automated countOrdered By: Jared Louis on 04-16-2023 Erythrocyte distribution width (RBC) [Ratio] 15.0 % Normal 11.9-15.3 [facility] Comment on above: Performed By: #### C MP, PAB, CBC #### [facility] [address] Erythrocytes [#/volume] in B lood by Automated countOrdered By: Jared Louis on 04-16-2023 RBC (Bld) [#/Vol] 3.99 10*6/uL Normal 3.60-5.00 [facility] Comment on above: Performed By: #### C MP, PAB, CBC #### [facility] [address] Glucose [Mass/volume] in Ser um or PlasmaOrdered By: Jared Louis on 04-16-2023 Glucose [Mass/Vol] 85 mg/dL Normal 70-100 [facility] Comment on above: ADA recommended refe rence rangeRandom Glucose Reference Range is dependent on time and content of last meal. Glucose of more than 200 mg/dL in a nonstressed, ambulatory subject supports the diagnosis of Diabetes Mellitus. Result Comment: [place] Glucose Reference Range is dependent on time and content of last meal. Glucose of more than 200 mg/dL in a nonstressed, ambulatory subject supports the diagnosis of Diabetes Mellitus. ADA recommended reference range Performed By: #### C MP, PAB, CBC #### [facility] [address] Hematocrit [Volume Fraction] of Blood by Automated countOrdered By: Jared Louis on 04-16-2023 Hematocrit (Bld) [Volume fraction] 33.2 % Low 34.0-46.4 [facility] Comment on above: Performed By: #### C MP, PAB, CBC #### [address] Hemoglobin [Mass/volume] in BloodOrdered By: Jared Louis on 04-16-2023 Hemoglobin (Bld) [Mass/Vol] 11.0 g/dL Low 11.8-15.4 [facility] Comment on above: Performed By: #### C MP, PAB, CBC #### [address] Leukocytes [#/volume] correc adriane for nucleated erythrocytes in Blood by Automated counOrdered By: Jared Louis on 04-16-2023 WBC corrected for nucl RBC Auto (Bld) [#/Vol] 9.7 10*3/uL 3.8-11.6 [facility] Leukocytes [#/volume] in Blo od by Automated countOrdered By: Jared Louis on 04-16-2023 WBC (Bld) [#/Vol] 9.7 10*3/uL Normal 3.8-11.6 [facility] Comment on above: Performed By: #### C MP, PAB, CBC #### [address] Lymphocytes [#/volume] in Bl ood by Automated countOrdered By: Jared Louis on 04-16-2023 Lymphocytes (Bld) [#/Vol] 1.8 10*3/uL Normal 1.00-4.8 [facility] Comment on above: Performed By: #### C MP, PAB, CBC #### [address] Lymphocytes/100 leukocytes i n Blood by Automated countOrdered By: Jared Louis on 04-16-2023 Lymphocytes/100 WBC (Bld) 18.4 % Normal . [facility] Comment on above: Performed By: #### C MP, PAB, CBC #### [address] MCH [Entitic mass] by Automa adriane countOrdered By: Jared Louis on 04-16-2023 MCH (RBC) [Entitic mass] 27.4 pg Normal 24.7-34.3 [facility] Comment on above: Performed By: #### C MP, PAB, CBC #### [facility] [address] MCHC Auto (RBC) [Mass/Vol]Or dered By: Jared Louis on 04-16-2023 MCHC (RBC) [Mass/Vol] 33.0 g/dL 32.0-35.0 [facility] MCV [Entitic volume] by Auto mated countOrdered By: Jared Louis on 04-16-2023 MCV (RBC) [Entitic vol] 83.2 fL Normal 80-100 [facility] Comment on above: Performed By: #### C MP, PAB, CBC #### [facility] [address] Neutrophils [#/volume] in Bl ood by Automated countOrdered By: Jared Louis on 04-16-2023 Neutrophils (Bld) [#/Vol] 6.5 10*3/uL Normal 1.8-7.7 [facility] Comment on above: Performed By: #### C MP, PAB, CBC #### [facility] [address] [place] [address] No Panel InformationOrdered By: Jared Louis on 04-16-2023 Estimated GFR (CKD-EPI) > 60.0 mL/Min [facility] Creatinine Clearance (Chem 47.09 [facility] Nucleated erythrocytes [Pres ence] in Blood by Automated countOrdered By: Jared Louis on 04-16-2023 Nucleated RBC Auto Ql (Bld) 0.1 /100{WBC} 0-0.5 [facility] Platelet mean volume [Entiti c volume] in Blood by Automated countOrdered By: Jared Louis on 04-16-2023 Platelet mean volume (Bld) [Entitic vol] 7.7 fL Normal 6.3-10.7 [facility] Comment on above: Performed By: #### C MP, PAB, CBC #### [facility] [address] [place] [address] Platelets [#/volume] in Bloo d by Automated countOrdered By: Jared Louis on 04-16-2023 Platelets (Bld) [#/Vol] 228 10*3/uL Normal 150-450 [facility] Comment on above: Performed By: #### C MP, PAB, CBC #### [address] Potassium [Moles/volume] in Serum or PlasmaOrdered By: Jared Louis on 04-16-2023 Potassium [Moles/Vol] 3.9 mmol/L Normal 3.5-5.1 [facility] Comment on above: Performed By: #### C MP, PAB, CBC #### [address] Prealbumin [Mass/volume] in Serum or PlasmaOrdered By: Jared Louis on 04-16-2023 Prealbumin [Mass/Vol] 23.4 mg/dL Normal 17.0-34.0 [facility] Comment on above: Result Comment: PERF ORMED BY: [place] [address] PATHOLOGIST R&D ENGINEER LUPILLO KHAN M.D. Performed By: #### C MP, PAB, CBC ####[address] Protein [Mass/volume] in Ser um or PlasmaOrdered By: Jared Louis on 04-16-2023 Protein [Mass/Vol] 6.2 g/dL Low 6.4-8.9 [facility] Comment on above: Performed By: #### C MP, PAB, CBC #### [address] Serum globulin measurement b y calculation (mass/volume)Ordered By: Jared Louis on 04-16-2023 Globulin (S) [Mass/Vol] 2.8 g/dL Normal [facility] Comment on above: Performed By: #### C MP, PAB, CBC #### [address] Serum or plasma albumin/glob ulin mass ratioOrdered By: Jared Louis on 04-16-2023 Albumin/Globulin [Mass ratio] 1.2 {ratio} Normal [facility] Comment on above: Performed By: #### C JOHANA HENRY, CBC #### [facility] [address] [place] [address] Serum or plasma anion gap de terminationOrdered By: Jared Louis on 04-16-2023 Anion gap [Moles/Vol] 12.4 mmol/L Normal 6.0-15.0 [facility] Comment on above: Performed By: #### C CARL PAB, CBC #### [facility] [address] [place] [address] Sodium [Moles/volume] in Ser um or PlasmaOrdered By: Jared Louis on 04-16-2023 Sodium [Moles/Vol] 142 mmol/L Normal 136-145 [facility] Comment on above: Performed By: #### C JOHANA HENRY, CBC #### [address] Urea nitrogen [Mass/volume] in Serum or PlasmaOrdered By: Jared Louis on 04-16-2023 Urea nitrogen [Mass/Vol] 34 mg/dL High 7-25 [facility] Comment on above: Performed By: #### C JOHANA HENRY, CBC #### [address] [place] 04-13-2023 L - -------- Specimen: [id number] Received: 04/13/23 Status: JAKE Licona Num: [id number] Spec Type: Surgical Subm Dr: Devin Moreau MD Tissues: A Synovial cyst (BACK) B Disc - Intervertebral/Lumbar /Cervical (DISC) Procedures: HE/2, Gross/Micro L3/2 -------- Age/ Patient Sex Location Account Attending Physician -------- Renuka Owen 72/F [place] [id number] Devin Moreau MD -------- SPEC NUM: [id number] RECD: 04/13/23 STATUS: JAKE LICONA NUM: [id number] AURELIA: 04/13/23- [facility] DR: Devin Moreau MD ENTERED: 04/13/[address] [facility] [address]: KALIE TYPE: Surgical DEPT: S ENTERED BY: [id number] RECV BY: [id number] ORDERED: HE/2, Gross/Micro L3/2 ORDERED: HE/2, Gross/Micro L3/2 Pathological Diagnosis A. Synovial cyst, back, excision: - Large degenerated ganglion cyst with patchy chalky type dystrophic calcifications without secondary infection identified B. Lumbar disc, discectomy: - Fragments of severely degenerated nucleus pulposus and fibrous cartilage, and some admixed portions of markedly degenerated tenosynovial soft tissue, compatible with the associated and markedly degenerated paraspinal synovial cyst, and the likely associated lumbar stenosis from the severely degenerated and the likely unstable lumbar disc disease Clinical Information Lumbar stenosis Gross Description A. Received in formalin labeled with the patient's name, date of and synovial cyst is a 2.3 x 0.7 x 0.3 cm aggregate of lora-harvey rubbery tissue. Entirely submitted in one cassette labeled A1. B. Received in formalin labeled with the patient's name, date of and disc is a 4.5 x 4.5 x 2.3 cm aggregate of lora-pink fibrocartilaginous tissue. International [employer] sections are submitted in one cassette labeled B1. -------- Specimen: [id number] Received: 04/13/23 Status: JAKE Licona Num: [id number] Spec Type: Surgical Subm Dr: Devin Moreau MD Tissues: A Synovial cyst (BACK) B Disc - Intervertebral/Lumbar /Cervical (DISC) Procedures: Cathy ARANA/Micro L3/2 -------- Patient: Renuka Owen [id number] (Continued) -------- Specimen: [id number] Received: 04/13/23 (Continued) Signed (signature on file) Kiran Peña MD 04/15/23 1934 -------- Specimen: [id number] Received: 04/13/23 Status: JAKE Licona Num: [id number] Spec Type: Surgical Subm Dr: Devin Moreau MD Tissues: A Synovial cyst (BACK) B Disc - Intervertebral/Lumbar /Cervical (DISC) Procedures: HE/2, Gross/Micro L3/2 -------- Patient: Renuka Owen [id number] (Continued) -------- Specimen: [id number] Received: 04/13/23 (Continued) Microscopic Description A. One H E slide reviewed. The microscopic examination confirms the diagnosis. B. One H E slide reviewed. The microscopic examination confirms the diagnosis. CPT Codes 98839s5 -------- -------- Specimen: [id number] Received: 04/13/23 Status: JAKE Licona Num: [id number] Spec Type: Surgical Subm Dr: Devin Moreau MD Tissues: A Synovial cyst (BACK) B Disc - Intervertebral/Lumbar /Cervical (DISC) Procedures: Cathy ARANA/Micro L3/2 -------- Patient: Renuka Owen [id number] (Continued) -------- Signed (signature on file) Kiran Peña MD 04/15/231933 [place] [facility] Type and Screenon 04-13-2023 ABO and Rh group Nom (Bld) Blood group A Rh(D) positive Normal [facility] Comment on above: Result Comment: PERF ORMED BY: [place] [address] PATHOLOGIST R&D ENGINEER LUPILLO KHAN M.D. XR lumbar spine 2-3V*on 04-02 XR lumbar spine 2-3V* [facility] [address] [place] [address] XRay Report Signed Patient: Renuka Owen MR#: [id number] 982 : 1950 Acct:[id number] Age/Sex: 72 / F ADM Date: 04/13/23 Loc: [place] Room: Type: [facility] Attending Dr: Devin Moreau MD Copies to: Devin Moreau MD Ordering Provider: Devin Moreau MD Date of Service: 04/13/23 XR/XR lumbar spine 2-3V*: . Fluoroscopic assessment for L4-5 fusion revision HISTORY: L4-5 fusion revision 194 image was obtained. Cumulative Air Kerma in mGy: 1305 mGy Removal posterior L4-5 fixation hardware. Tiny metallic density in the right posterior element at L5. L4-5 interbody fusion changes redemonstrated. XR/XR lumbar spine 2-3V* IMPRESSION: Removal of L4-5 posterior fixation hardware. Impression dictated by: Alvaro Reid M.D.04/13/2023 12:50 PM Dictation Location: [place] [address] Transcribed By: [facility] 04/13/23 1250 Dictated By: Alvaro Reid DO 04/13/23 1246 Signed By: 04/13/23 1250 Normal [facility] Automated basophil %Ordered By: Devin Moreau on 03-26-2023 Basophils/100 WBC (Bld) 1.0 % Normal . [facility] Comment on above: Performed By: #### B MP, CBC #### [place] [address] [place] Automated basophil countOrde red By: Devin Moreau on 11-24-2023 Basophils (Bld) [#/Vol] 0.1 10*3/uL Normal 0.0-0.2 [facility] Comment on above: Result Comment: PERF ORMED BY: [place] [address] PATHOLOGIST R&D ENGINEER LUPILLO KHAN M.D. Performed By: #### B MP, CBC #### [address] Automated blood monocyte cou ntOrdered By: Devin Moreau on 03-26-2023 Monocytes (Bld) [#/Vol] 0.6 10*3/uL Normal 0.0-0.8 [facility] Comment on above: Performed By: #### B MP, CBC #### [address] Automated eosinophil %Ordere d By: Devin Moreau on 03-26-2023 Eosinophils/100 WBC (Bld) 4.7 % Normal . [facility] Comment on above: Performed By: #### B MP, CBC #### [address] Automated eosinophil countOr dered By: Devin Moreau on 03-26-2023 Eosinophils (Bld) [#/Vol] 0.3 10*3/uL Normal 0.0-0.45 [facility] Comment on above: Performed By: #### B MP, CBC #### [address] Automated monocyte %Ordered By: Devin Moreau on 03-26-2023 Monocytes/100 WBC (Bld) 9.8 % Normal . [facility] Comment on above: Performed By: #### B MP, CBC #### [address] Automated neutrophil %Ordere d By: Devin Moreau on 03-26-2023 Neutrophils/100 WBC (Bld) 55.6 % Normal . [facility] Comment on above: Performed By: #### B MP, CBC #### [address] Basic Metabolic Panelon 11-2 4-2023 GFR/1.73 sq M.predicted MDRD (S/P/Bld) [Vol rate/Area] 48.279 mL/min/{1.73_m2} Normal [facility] Comment on above: Performed By: #### B MP, CBC #### [address] Calcium [Mass/volume] in Ser um or PlasmaOrdered By: Devin Moreau on 03-26-2023 Calcium [Mass/Vol] 9.4 mg/dL Normal 8.6-10.3 [facility] Comment on above: Result Comment: PERF ORMED BY: [place] [address] PATHOLOGIST R&D ENGINEER LUPILLO KHAN M.D. Performed By: #### B MP, CBC #### [address] Carbon dioxide, total [Moles /volume] in Serum or PlasmaOrdered By: Devin Moreau on 03-26-2023 CO2 [Moles/Vol] 30.1 mmol/L Normal 21.0-31.0 [facility] Comment on above: Performed By: #### B MP, CBC #### [address] Chloride [Moles/volume] in S ruby or PlasmaOrdered By: Devin Moreau on 03-26-2023 Chloride [Moles/Vol] 102 mmol/L Normal 98-107 [facility] Comment on above: Performed By: #### B MP, CBC #### [place] [address] [place] Complete Blood Count Auto Di ffon 03-26-2023 Mean Corpuscular HGB Conc 32.4 g/dL Normal 32.0-35.0 [facility] Comment on above: Performed By: #### B MP, CBC #### [place] [address] [place] NRBC% 0.1 /100{WBC} Normal 0-0.5 [facility] Comment on above: Performed By: #### B MP, CBC #### [facility] [address] [place] [address] Creatinine [Mass/volume] in Serum or PlasmaOrdered By: Devin Moreau on 03-26-2023 Creatinine [Mass/Vol] 1.19 mg/dL Normal 0.60-1.20 [facility] Comment on above: Performed By: #### B MP, CBC #### [facility] [address] [place] [address] ECG 12 lead ECGon 03-26-2023 ECG 12 lead ECG [facility] [address] [place] [address] Electrocardiograph Report Signed Patient: Renuka Owen MR#: [id number] 982 : 1950 Acct:[id number] Age/Sex: 72 / F ADM Date: 03/26/23 Loc: Room: Type: [facility] Attending Dr: Devin Moreau MD Ordering Provider: Devin Moreau MD Date of Service: 03/26/23 ECG/ECG 12 lead ECG: pre-op Copies to: Test Reason : Blood Pressure : / mmHG Vent. Rate : 070 BPM Atrial Rate : 070 BPM P-R Int : 168 ms QRS Dur : 144 ms QT Int : 444 ms P-R-T Axes : 063 060 -01 degrees QTc Int : 479 ms Normal sinus rhythm Left bundle branch block Abnormal ECG When compared with ECG of 16-MAR-2022 10:51, No significant change was found Confirmed by EMORY MICHAEL DO ([id number]) on 03/26/2023 6:12:31 PM Referred By: SANTI Electronically Signed By:EMORY MICHAEL DO Transcribed By: MUS Signed By Emory Michael DO 03/26 Normal [facility] Erythrocyte distribution wid th [Ratio] by Automated countOrdered By: Devin Moreau on 03-26-2023 Erythrocyte distribution width (RBC) [Ratio] 15.2 % Normal 11.9-15.3 [facility] Comment on above: Performed By: #### B MP, CBC #### [address] [address] [place] Erythrocytes [#/volume] in B lood by Automated countOrdered By: Devin Moreau on 03-26-2023 RBC (Bld) [#/Vol] 4.46 10*6/uL Normal 3.60-5.00 [facility] Comment on above: Performed By: #### B MP, CBC #### [facility] [address] [place] [address] [place] Glucose [Mass/volume] in Ser um or PlasmaOrdered By: Devin Moreau on 03-26-2023 Glucose [Mass/Vol] 95 mg/dL Normal 70-100 [facility] Comment on above: ADA recommended refe rence rangeRandom Glucose Reference Range is dependent on time and content of last meal. Glucose of more than 200 mg/dL in a nonstressed, ambulatory subject supports the diagnosis of Diabetes Mellitus. Result Comment: [place] Glucose Reference Range is dependent on time and content of last meal. Glucose of more than 200 mg/dL in a nonstressed, ambulatory subject supports the diagnosis of Diabetes Mellitus. ADA recommended reference range Performed By: #### B MP, CBC #### [facility] [address] [place] [address] Hematocrit [Volume Fraction] of Blood by Automated countOrdered By: Devin Moreau on 03-26-2023 Hematocrit (Bld) [Volume fraction] 37.7 % Normal 34.0-46.4 [facility] Comment on above: Performed By: #### B MP, CBC #### [facility] [address] [place] [address] [place] Hemoglobin [Mass/volume] in BloodOrdered By: Devin Moreau on 03-26-2023 Hemoglobin (Bld) [Mass/Vol] 12.2 g/dL Normal 11.8-15.4 [facility] Comment on above: Performed By: #### B MP, CBC #### [facility] [address] [place] [address] Leukocytes [#/volume] correc adriane for nucleated erythrocytes in Blood by Automated counOrdered By: Devin Moreau on 03-26-2023 WBC corrected for nucl RBC Auto (Bld) [#/Vol] 6.0 10*3/uL 3.8-11.6 [facility] Leukocytes [#/volume] in Blo od by Automated countOrdered By: Devin Moreau on 03-26-2023 WBC (Bld) [#/Vol] 6.0 10*3/uL Normal 3.8-11.6 [facility] Comment on above: Performed By: #### B MP, CBC #### [facility] [address] [place] [address] [place] Lymphocytes [#/volume] in Bl ood by Automated countOrdered By: Devin Moreau on 03-26-2023 Lymphocytes (Bld) [#/Vol] 1.7 10*3/uL Normal 1.00-4.8 [facility] Comment on above: Performed By: #### B MP, CBC #### [address] Lymphocytes/100 leukocytes i n Blood by Automated countOrdered By: Devin Moreau on 03-26-2023 Lymphocytes/100 WBC (Bld) 28.9 % Normal . [facility] Comment on above: Performed By: #### B MP, CBC #### [address] MCH [Entitic mass] by Automa adriane countOrdered By: Devin Moreau on 03-26-2023 MCH (RBC) [Entitic mass] 27.4 pg Normal 24.7-34.3 [facility] Comment on above: Performed By: #### B MP, CBC #### [address] MCHC Auto (RBC) [Mass/Vol]Or dered By: Devin Moreau on 03-26-2023 MCHC (RBC) [Mass/Vol] 32.4 g/dL 32.0-35.0 [facility] MCV [Entitic volume] by Auto mated countOrdered By: Devin Moreau on 03-26-2023 MCV (RBC) [Entitic vol] 84.5 fL Normal 80-100 [facility] Comment on above: Performed By: #### B MP, CBC #### [address] [place] [address] [place] Neutrophils [#/volume] in Bl ood by Automated countOrdered By: Devin Moreua on 03-26-2023 Neutrophils (Bld) [#/Vol] 3.3 10*3/uL Normal 1.8-7.7 [facility] Comment on above: Performed By: #### B MP, CBC #### [facility] [address] [place] [address] No Panel InformationOrdered By: Devin Moreau on 03-26-2023 Estimated GFR (CKD-EPI) 48.279 mL/Min [facility] Creatinine Clearance (Chem N/A [facility] Nucleated erythrocytes [Pres ence] in Blood by Automated countOrdered By: Devin Moreau on 03-26-2023 Nucleated RBC Auto Ql (Bld) 0.1 /100{WBC} 0-0.5 [facility] PST Type and Screenon 2022 ABO and Rh group Nom (Bld) Blood group A Rh(D) positive Normal [facility] Comment on above: Order Comment: Date of Surgery: [id number] Result Comment: PERF ORMED BY: [place] [address] PATHOLOGIST R&D ENGINEER LUPILLO KHAN M.D. Platelet mean volume [Entiti c volume] in Blood by Automated countOrdered By: Devin Moreau on 03-26-2023 Platelet mean volume (Bld) [Entitic vol] 8.4 fL Normal 6.3-10.7 [facility] Comment on above: Performed By: #### B MP, CBC #### [facility] [address] [place] [address] [place] Platelets [#/volume] in Bloo d by Automated countOrdered By: Devin Moreau on 03-26-2023 Platelets (Bld) [#/Vol] 242 10*3/uL Normal 150-450 [facility] Comment on above: Performed By: #### B MP, CBC #### [facility] [address] [place] [address] [place] Potassium [Moles/volume] in Serum or PlasmaOrdered By: Devin Moreau on 03-26-2023 Potassium [Moles/Vol] 4.4 mmol/L Normal 3.5-5.1 [facility] Comment on above: Performed By: #### B MP, CBC #### [address] Serum or plasma anion gap de terminationOrdered By: Devin Moreau on 03-26-2023 Anion gap [Moles/Vol] 12.3 mmol/L Normal 6.0-15.0 [facility] Comment on above: Performed By: #### B MP, CBC #### [facility] [address] [place] [address] Sodium [Moles/volume] in Ser um or PlasmaOrdered By: Devin Moreau on 03-26-2023 Sodium [Moles/Vol] 140 mmol/L Normal 136-145 [facility] Comment on above: Performed By: #### B MP, CBC #### [facility] [address] [place] [address] Urea nitrogen [Mass/volume] in Serum or PlasmaOrdered By: Devin Moreau on 03-26-2023 Urea nitrogen [Mass/Vol] 38 mg/dL High 7-25 [facility] Comment on above: Performed By: #### B MP, CBC #### [address] Human papilloma virus 16+18+ 31+33+35+39+45+51+52+56+58+59+66+68 DNA [Presence] in CerOrdered By: Radha Moreau on 03-10-2023 HPV 16+18+31+33+35+39+45+51 +52+56+58+59+66+68 DNA Probe+sig amp Ql (Cvx) Negative Negative [facility] Comment on above: This nucleic acid am plification test detects fourteen high-risk HPV types (16,18,31,33,35,39,45,51,52,56,58,59,66,68)without differentiation.Performed at: [address] [id number] Director: Estella Broderick MD, Phone: [phone] at: =[facility] [id number] Director: Estella Broderick MD, Phone: [phone] IGP, Aptima HPV, rfx 16/18,4 5on 03-10-2023 PAP HPV Aptima Negative Normal Negative [facility] Comment on above: Order Comment: GEN CTION TECHNIQUE:: BROOM-ALONE GYNOCOLOGICAL BODY SITE:: VAGINA Result Comment: This nucleic acid amplification test detects fourteen high- risk HPV types (16,18,31,33,35,39,45,51,52,56,58,59,66,68) without differentiation. Performed at: [facility] [id number] Senior Mobile Web Developer: Estella Broderick MD, Phone: [phone] Performed at: =[address] [id number] Senior Mobile Web Developer: Estella Broderick MD, Phone: [phone] PERFORMED BY: [address] [id number] PATHOLOGIST R&D ENGINEER LUPILLO KHAN M.D. Performed By: #### P AP [id number] #### [facility] , Pap Image Guided Note Normal . [facility] Comment on above: Order Comment: GEN CTION TECHNIQUE:: BROOM-ALONE GYNOCOLOGICAL BODY SITE:: VAGINA Result Comment: TEST S RESULT FLAG UNITS REF RANGE LAB Clinician Provided Cytology Information Source.............Vagina No. of containers..01 ThinPrep Vial DIAGNOSIS: 01 NEGATIVE FOR INTRAEPITHELIAL LESION OR MALIGNANCY. Specimen adequacy: 01 Satisfactory for evaluation. Endocervical component may not be distinguished in cases of atrophy. Performed by: Rolly Castellano Bank Advisor (ASCP) . 01 Note: Note 01 The Pap smear is a screening test designed to aid in the detection of premalignant and malignant conditions of the uterine cervix. It is not a diagnostic procedure and should not be used as the sole means of detecting cervical cancer. Both false-positive and false-negative reports do occur. Test Methodology: Note 01 This liquid based ThinPrep(R) pap test was screened with the use of an image guided system. HPV Genotype Reflex Note 01 Criteria not met, HPV Genotype not performed. FLAG LEGEND: L-Low Normal,H-High Normal,LL-Alert Low,HH-Alert High <-Panic Low,>-Panic High,A-Abnormal,AA-Critical Abnormal Performed at: 01 [facility] [address] [place] [address] Estella Broderick MD, Performed By: #### P AP [id number] #### [facility] , No Panel InformationOrdered By: Radha Moreau on 03-10-2023 IG Pap w/Ct-Ng & HPV Rflx (Off-Site Note . [facility] Comment on above: TESTS RESULT FLAG UN ITS REF RANGE LAB - Clinician Provided Cytology Information Source.............Vagina No. of containers..01 ThinPrep VialDIAGNOSIS: 01 NEGATIVE FOR INTRAEPITHELIAL LESION OR MALIGNANCY.Specimen adequacy: 01 Satisfactory for evaluation. Endocervical component may not be distinguished in cases of atrophy.Performed by: 01 Zechariah Castellano, Bank Advisor (ASCP). 01Note: Note 01 The Pap smear is a screening test designed to aid in the detection of premalignant and malignant conditions of the uterine cervix. It is not a diagnostic procedure and should not be used as the sole means of detecting cervical cancer. Both false-positive and false-negative reports do occur.Test Methodology: Note 01 This liquid based ThinPrep(R) pap test was screened with the use of an image guided system.HPV Genotype Reflex Note 01 Criteria not met, HPV Genotype not performed. -------- FLAG LEGEND: L-Low Normal,H-High Normal,LL-Alert Low,HH-Alert High <-Panic Low,>-Panic High,A-Abnormal,AA-Critical Abnormal ------Performed at:[address] [address] Estella Broderick MD, MR CARDIAC MORPHOLOGY AND FU NCTION WO IV CONTRASTon 03-03-2023 MR CARDIAC MORPHOLOGY AND FUNCTION WO IV CONTRAST Interpreted By: Isaiah Peck, STUDY: MR CARDIAC RESONANCE IMAGING FOR VELOCITY FLOW MAPPING; 03/03/2023 3:36 pm INDICATION: Signs/Symptoms:MV insufficiency. This study is performed to assess myocardial viability and damage, and to quantitate left ventricular and valvular function. COMPARISON: None. ACCESSION NUMBER(S): [id number] ORDERING CLINICIAN: BRYCE HENDRICKSON TECHNIQUE: Mcdermott 1.5 Jaymie MRI scanner. Turbo spin echo and balanced steady state free precession (bSSFP) imaging for anatomic definition. Dynamic cine bSSFP for cardiac chamber and wall-motion analysis, and valvular analysis. Flow quantification sequences for hemodynamics. HT-61.5 inches, 156 cm; WT-155 pounds, 70 kg; BSA-1.71 m2 FINDINGS: CARDIAC CHAMBERS Normal atrioventricular and ventriculoarterial concordance LEFT ATRIUM Normal size RIGHT ATRIUM Normal size ( INTERATRIAL SEPTUM Intact. LEFT VENTRICLE Normal left ventricular cavity size with mildly depressed systolic function. Severe basal inferolateral wall hypokinesis. Dyskinesis of the mid/distal inferolateral wall. Left ventricular end systolic diameter 35 mm. Quantitative left ventricular functional values are as follows: EDV = 115 cc; EDVi = 67 cc/m2 ESV = 54 cc; ESVi = 31 cc/m2 Stroke volume = 61 cc; SVi = 36 cc/m2 LVEF = 53 % Absolute Cardiac Output = 3.9 l/min.; COi = 2.3 l/min/m2 LV mass = 97 gm; LVMi = 57 gm/m2 *Dick AM et al. Normalized left ventricular systolic and diastolic function by steady state free precession cardiovascular magnetic resonance. J Cardiovasc Magn Reson 2006; 8:417-26. RIGHT VENTRICLE The right ventricle appears normal in size, shape, and has normal qualitative systolic function. No segmental wall motion abnormalities. No abnormal delayed enhancement in the myocardium. RV EF 71% INTERVENTRICULAR SEPTUM Intact. AORTIC VALVE Trileaflet aortic valve without stenosis There is trace-mild aortic regurgitation. MITRAL VALVE Thickened mitral valve leaflets. Mildly calcified. There is mild-moderate mitral regurgitation. TRICUSPID VALVE There is qualitative no tricuspid regurgitation. THORACIC AORTA The thoracic aorta appears normal in course, caliber, and contour. There is no evidence for acute aortic pathology. The arch vessel branching pattern is normal. All the arch branch vessels appear widely patent in their proximal portions. PULMONARY ARTERIES The central pulmonary arteries appear normal ( SYSTEMIC AND PULMONARY VEINS Normal systemic venous and pulmonary venous return. The SVC and IVC are of normal caliber. Normal pulmonary venous anatomy. CHEST The chest wall is normal. No significant lymphadenopathy or mass is seen in limited images of the mediastinum. Limited imaging through the lungs reveals no gross abnormalities. No pleural effusion. Bilateral breast implants are present. UPPER ABDOMEN Limited imaging through the upper abdomen reveals no abnormalities of the visualized organs. IMPRESSION: 1. Normal left ventricular cavity size with mildly depressed systolic function. Ejection fraction 53%. Basal inferolateral wall severe hypokinesis. Mid/distal inferolateral wall dyskinesis. 2. Thickened mildly calcified mitral valve leaflets with mild-moderate mitral valve regurgitation. 3. Normal right ventricular cavity size with preserved systolic function. RV EF 71%. 4. Trileaflet aortic valve without stenosis, trace aortic valve insufficiency. 5. Mild tricuspid valve regurgitation. Signed by: Isaiah Peck 03/04/2023 5:37 PM Dictation workstation: [id number] [facility] MR CARDIAC RESONANCE IMAGING FOR VELOCITY FLOW MAPPINGon 03-03-2023 MR CARDIAC RESONANCE IMAGING FOR VELOCITY FLOW MAPPING Interpreted By: Isaiah Peck, STUDY: MR CARDIAC RESONANCE IMAGING FOR VELOCITY FLOW MAPPING; 03/03/2023 3:36 pm INDICATION: Signs/Symptoms:MV insufficiency. This study is performed to assess myocardial viability and damage, and to quantitate left ventricular and valvular function. COMPARISON: None. ACCESSION NUMBER(S): [id number] ORDERING CLINICIAN: BRYCE HENDRICKSON TECHNIQUE: Mcdermott 1.5 Jaymie MRI scanner. Turbo spin echo and balanced steady state free precession (bSSFP) imaging for anatomic definition. Dynamic cine bSSFP for cardiac chamber and wall-motion analysis, and valvular analysis. Flow quantification sequences for hemodynamics. HT-61.5 inches, 156 cm; WT-155 pounds, 70 kg; BSA-1.71 m2 FINDINGS: CARDIAC CHAMBERS Normal atrioventricular and ventriculoarterial concordance LEFT ATRIUM Normal size RIGHT ATRIUM Normal size ( INTERATRIAL SEPTUM Intact. LEFT VENTRICLE Normal left ventricular cavity size with mildly depressed systolic function. Severe basal inferolateral wall hypokinesis. Dyskinesis of the mid/distal inferolateral wall. Left ventricular end systolic diameter 35 mm. Quantitative left ventricular functional values are as follows: EDV = 115 cc; EDVi = 67 cc/m2 ESV = 54 cc; ESVi = 31 cc/m2 Stroke volume = 61 cc; SVi = 36 cc/m2 LVEF = 53 % Absolute Cardiac Output = 3.9 l/min.; COi = 2.3 l/min/m2 LV mass = 97 gm; LVMi = 57 gm/m2 *Harmanira AM et al. Normalized left ventricular systolic and diastolic function by steady state free precession cardiovascular magnetic resonance. J Cardiovasc Magn Reson 2006; 8:417-26. RIGHT VENTRICLE The right ventricle appears normal in size, shape, and has normal qualitative systolic function. No segmental wall motion abnormalities. No abnormal delayed enhancement in the myocardium. RV EF 71% INTERVENTRICULAR SEPTUM Intact. AORTIC VALVE Trileaflet aortic valve without stenosis There is trace-mild aortic regurgitation. MITRAL VALVE Thickened mitral valve leaflets. Mildly calcified. There is mild-moderate mitral regurgitation. TRICUSPID VALVE There is qualitative no tricuspid regurgitation. THORACIC AORTA The thoracic aorta appears normal in course, caliber, and contour. There is no evidence for acute aortic pathology. The arch vessel branching pattern is normal. All the arch branch vessels appear widely patent in their proximal portions. PULMONARY ARTERIES The central pulmonary arteries appear normal ( SYSTEMIC AND PULMONARY VEINS Normal systemic venous and pulmonary venous return. The SVC and IVC are of normal caliber. Normal pulmonary venous anatomy. CHEST The chest wall is normal. No significant lymphadenopathy or mass is seen in limited images of the mediastinum. Limited imaging through the lungs reveals no gross abnormalities. No pleural effusion. Bilateral breast implants are present. UPPER ABDOMEN Limited imaging through the upper abdomen reveals no abnormalities of the visualized organs. IMPRESSION: 1. Normal left ventricular cavity size with mildly depressed systolic function. Ejection fraction 53%. Basal inferolateral wall severe hypokinesis. Mid/distal inferolateral wall dyskinesis. 2. Thickened mildly calcified mitral valve leaflets with mild-moderate mitral valve regurgitation. 3. Normal right ventricular cavity size with preserved systolic function. RV EF 71%. 4. Trileaflet aortic valve without stenosis, trace aortic valve insufficiency. 5. Mild tricuspid valve regurgitation. Signed by: Isaiah Peck 03/04/2023 5:37 PM Dictation workstation: [id number] [facility] Urinalysis - DIPSTICKon 02-01 Appearance (U) clear [employer] Other Bilirubin Ql (U) Negative [employer] Other Color (U) yellow [employer] Other Glucose Ql (U) Negative [employer] Other Hemoglobin Ql (U) Negative [employer] Other Ketones Ql (U) Negative [employer] Other Leukocyte esterase Test strip Ql (U) trace [employer] Other Nitrite Ql (U) Negative [employer] Other pH (U) 6.0 [pH] [employer] Other Protein Ql (U) + [facility] [employer] Other Specific gravity (U) [Rel density] 1.010 [place] [facility] Other Urobilinogen (U) [Mass/Vol] off chart [place] [facility] Other Urinalysis - DIPSTICK Nor eshtery Other Creatinine (Bld) [Mass/Vol]O rdered By: Devin Moreau on 02-15-2023 Creatinine [Mass/Vol] 0.9 mg/dL 0.6-1.3 [facility] Comment on above: ER/ESD physician is notified/shown all ISTAT results.Critical values may be confirmed by laboratory testing ifdeemed necessary by ER attending doctor. No Panel InformationOrdered By: Devin Moreau on 02-15-2023 Bedside Estimated GFR (eGFR) > 60.0 [facility] XR dexa axial skeletonon XR dexa axial skeleton No rth eshtery Other Echocardiogramon 01-25-[address], [address] [place] [address] TRANSTHORACIC ECHOCARDIOGRAM REPORT Patient Name: RENUKA Dey Reading Physician: [id number] Bryce Hendrickson MD, [facility] Study Date: 01/25/2023 Referring BRYCE HENDRICKSON Physician: MRN/PID: [id number] PCP: Mervin Jacob Accession/Order#: [id number] Department [facility] Location: Date of : 1950 Fellow: Gender: F Nurse: Admit Date: Bilingual Medical Receptionist: Светлана Mantilla RDCS [facility] Height: 154.94 cm CC Report to: Weight: 71.22 kg Study Type: Echocardiogram BSA: 1.70 m2 Blood Pressure: 120 /76 mmHg Diagnosis/ICD: I34.0-Nonrheumatic mitral (valve) insufficiency Indication: Abnormal EKG-LBBB, Chest Pain, HTN, Overweight Procedure/CPT: Echo Complete w Full Doppler-[id number] Study Detail: The following Echo studies were performed: 2D, M-Mode, Doppler and color flow. PHYSICIAN INTERPRETATION: Left Ventricle: Left ventricular systolic function is mildly decreased, with an estimated ejection fraction of 50%. The left ventricular cavity size is normal. Spectral Doppler shows a normal pattern of left ventricular diastolic filling. Interventricular septal motion suggests conduction abnormality. Left Atrium: The left atrium is mildly dilated. Right Ventricle: The right ventricle is normal in size. There is normal right ventricular global systolic function. Right Atrium: The right atrium is normal in size. Aortic Valve: The aortic valve appears structurally normal. There is no evidence of aortic valve regurgitation. The peak instantaneous gradient of the aortic valve is 6.1 mmHg. The mean gradient of the aortic valve is 3.0 mmHg. Mitral Valve: The mitral valve is mildly thickened. There is moderate mitral valve regurgitation. Tricuspid Valve: The tricuspid valve is structurally normal. There is trace tricuspid regurgitation. Pulmonic Valve: The pulmonic valve is structurally normal. There is no indication of pulmonic valve regurgitation. Pericardium: There is no pericardial effusion noted. Aorta: The aortic root is normal. Systemic Veins: The inferior vena cava appears to be of normal size. In comparison to the previous echocardiogram(s): When compared to a study from 2020, the amount of mitral regurgitation is unchanged. LVEF has slightly dropped. CONCLUSIONS: 1. Left ventricular systolic function is mildly decreased with a 50% estimated ejection fraction. 2. Interventricular septal motion suggests conduction abnormality. 3. Moderate mitral valve regurgitation. 4. When compared to a study from 2020, the amount of mitral regurgitation is unchanged. LVEF has slightly dropped. QUANTITATIVE DATA SUMMARY: 2D MEASUREMENTS: Normal Ranges: Ao Root d: 2.50 cm (2.0-3.7cm) LAs: 3.60 cm (2.7-4.0cm) RVIDd: 2.80 cm (0.9-3.6cm) IVSd: 1.40 cm (0.6-1.1cm) LVPWd: 1.00 cm (0.6-1.1cm) LVIDd: 4.00 cm (3.9-5.9cm) LVIDs: 3.00 cm LV Mass Index: 97.1 g/m2 LV % FS 25.0 % LV SYSTOLIC FUNCTION BY 2D PLANIMETRY (MOD): Normal Ranges: EF-A4C View: 56.0 % (>=55%) LV DIASTOLIC FUNCTION: Normal Ranges: MV Peak E: 1.10 m/s (0.7-1.2 m/s) MV Peak A: 1.30 m/s (0.42-0.7 m/s) E/A Ratio: 0.85 (1.0-2.2) MV lateral e' 0.09 m/s MV medial e' 0.04 m/s E/e' Ratio: 12.80 (<8.0) MITRAL VALVE: Normal Ranges: MV Vmax: 1.46 m/s (<=1.3m/s) MV peak P.5 mmHg (<5mmHg) MV mean P.0 mmHg (<48mmHg) MITRAL INSUFFICIENCY: Normal Ranges: MR Vmax: 551.50 cm/s dP/dt: 552 mmHg/s (>1200mmHg/sec) AORTIC VALVE: Normal Ranges: AoV Vmax: 1.23 m/s (<=1.7m/s) AoV Peak P.1 mmHg (<20mmHg) AoV Mean P.0 mmHg (1.7-11.5mmHg) LVOT Max Benjamin: 0.99 m/s (<=1.1m/s) AoV VTI: 27.30 cm (18-25cm) LVOT VTI: 19.50 cm LVOT Diameter: 2.10 cm (1.8-2.4cm) AoV Area, VTI: 2.47 cm2 (2.5-5.5cm2) AoV Area,Vmax: 2.80 cm2 (2.5-4.5cm2) AoV Dimensionless Index: 0.71 TRICUSPID VALVE/RVSP: Normal Ranges: Peak TR Velocity: 2.67 m/s RV Syst Pressure: 31.5 mmHg (< 30mmHg) PULMONIC VALVE: Normal Ranges: PV Max Benjamin: 0.7 m/s (0.6-0.9m/s) PV Max P.8 mmHg [id number] Bryce Hendrickson MD, FACC Electronically signed on 01/26/2023 at 12:50:05 PM Final Normal [facility] PROF CHEM 8 (BAS METB)on Anion gap [Moles/Vol] 9.9 mmol/L Normal [facility] Comment on above: Performed By: #### H STROPN #### [facility] [address] [address] [address] Isabell Peña Calcium [Mass/Vol] 9.3 mg/dL Normal 8.5-10.1 [facility] Comment on above: Performed By: #### H STROPN #### [facility] [address] [address] [address] Isabell Peña Chloride [Moles/Vol] 103 mmol/L Normal 98-107 [facility] Comment on above: Performed By: #### H STROPN #### [facility] [address] [address] [address] Isabell Peña CO2 [Moles/Vol] 31.7 mmol/L Normal 21.0-32.0 [facility] Comment on above: Performed By: #### H STROPN #### [facility] [address] [address] [address] Isabell Peña Creatinine [Mass/Vol] 0.98 mg/dL Normal 0.55-1.02 [facility] Comment on above: Performed By: #### H STROPN #### [facility] [address] [address] [address] Isabell Peña EGFR-AF THAI >60 Normal >=60 [facility] Comment on above: Performed By: #### H STROPN #### [facility] [address] [address] [address] Isabell Peña EGFR-NON AF THAI 56 mL/min/1.73m2 Critically low >=60 [facility] Comment on above: Performed By: #### H STROPN #### [facility] [address] [address] [address] Isabell Peña Glucose [Mass/Vol] 111 mg/dL Critically high 74-106 [facility] Comment on above: Performed By: #### H STROPN #### [facility] [address] [address] [address] Isabell Peña Potassium [Moles/Vol] 3.6 mmol/L Normal 3.5-5.1 [facility] Comment on above: Performed By: #### H STROPN #### [facility] [address] [address] [address] Isabell Peña Sodium [Moles/Vol] 141 mmol/L Normal 136-145 [facility] Comment on above: Performed By: #### H STROPN #### [facility] [address] [address] [address] Isabell Peña Urea nitrogen [Mass/Vol] 20.0 mg/dL Critically high 7.0-18.0 [facility] Comment on above: Performed By: #### H STROPN #### [facility] [address] [address] [address] Isabell Peña Urea nitrogen/Creatinine [Mass ratio] 20.4 mg/mg Normal [facility] Comment on above: Performed By: #### H STROPN #### [facility] [address] [address] [address] Isabell Peña [facility] CARDIAC STRESS/REST INJE CTIONon 06-10-2022 [facility] CARDIAC STRESS/REST INJECTION Patient Name: RENUKA OWEN STUDY: MYOCARDIAL PERFUSION STRESS TEST WITH LEXISCAN Performing facility: [facility], [address] [place] [address], [address], [address] Provider: Bryce Hendrickson MD, FACC PCP: Dr. Roseanna Jacob Supervising provider: Bryce Hendrickson MD, FACC INDICATION: Chest Pain; LBBB HISTORY: Gender: F; Age: 71 y/o ; Height: 0 cm; Weight: 0 kg. Abnormal EKG; HTN; Chest Pain; Denies smoking. COMPARISON: No comparison. ACCESSION NUMBER(S): [id number]; [id number]; [id number] ORDERING CLINICIAN: BRYCE HENDRICKSON TECHNIQUE: ONE DAY protocol. Stress injection: Date:06-10-22, 34.1 mCi of Myoview IV 20 seconds after rapid injection of Lexiscan. Rest injection: Date: 06-10-22, 11.0 mCi of Myoview IV at rest. The patient had a rapid injection of 0.4 mg of Lexiscan IV over 10 seconds. Imaging was performed by gated tomographic technique. Reason for Lexiscan: dizziness/unsteady/fa ll risk STRESS TEST DATA: Resting heart rate was 60 BPM. Resting blood pressure was 126/74 mmHg. Peak blood pressure was 102/58 mmHg. Peak heart rate was 90 BPM. TEST TERMINATED DUE TO: Protocol completed FINDINGS: STRESS TEST RESULTS: Resting electrocardiogram revealed normal sinus rhythm with left bundle branch block. In the presence of left bundle branch block no ischemic EKG changes can be interpreted, no dysrhythmias were induced by Lexiscan administration. The patient did not have chest pains/symptoms during procedure. There was a normal recovery phase. IMAGING RESULTS: Image quality was good. Rest and stress tomographic images were reviewed and revealed normal perfusion without evidence of ischemia, myocardial infarction, or left ventricular dilatation with stress. Overall left ventricular systolic function appeared to be normal without regional wall motion abnormalities. Ejection fraction was 61%. TID is 0.95 and is normal. There was evidence of breast attenuation artifact. IMPRESSION: Normal Lexiscan Myoview cardiac perfusion stress test. No evidence of ischemia or myocardial infarction by perfusion imaging. Normal left ventricular systolic function, ejection fraction 61%. No previous studies are available for comparison. Electronically signed by: BRYCE HENDRICKSON MD Normal [facility] No Panel Informationon 06-10 Normal -[facility] 250 DO Work Phone: Urinalysis - DIPSTICKon 05-04 Appearance (U) cloudy [employer] Other Bilirubin Ql (U) small [place] [employer] Other Color (U) yellow [employer] Other Glucose Ql (U) Negative [employer] Other Hemoglobin Ql (U) large [employer] Other Ketones Ql (U) trace [employer] Other Leukocyte esterase Test strip Ql (U) trace [employer] Other Nitrite Ql (U) Negative [employer] Other pH (U) 8.5 [pH] [employer] Other Protein Ql (U) trace [employer] Other Specific gravity (U) [Rel density] 1.010 [employer] Other Urobilinogen (U) [Mass/Vol] 0.2 mg/dL [employer] Other Urinalysis - DIPSTICK Nor eshtery Other CBC W Auto Differential pane l (Bld)on 05-19-2022 Basophils (Bld) [#/Vol] 0.09 10*3/uL <0.11 k/uL [facility] Basophils/100 WBC (Bld) 0.8 % [facility] Differential cell count method Nom (Bld) Auto [facility] Eosinophils (Bld) [#/Vol] 0.26 10*3/uL <0.46 k/uL [facility] Eosinophils/100 WBC (Bld) 2.3 % [facility] Erythrocyte distribution width (RBC) [Ratio] 16.4 % High 11.5 - 15.0 % [facility] Hematocrit (Bld) [Volume fraction] 36.6 % 36.0 - 46.0 % [facility] Hemoglobin (Bld) [Mass/Vol] 11.6 g/dL 11.5 - 15.5 g/dL [facility] Immature granulocytes (Bld) [#/Vol] 0.05 10*3/uL <0.10 k/uL [facility] Immature granulocytes/100 WBC (Bld) 0.4 % [facility] Lymphocytes (Bld) [#/Vol] 1.87 10*3/uL 1.00 - 4.00 k/uL [facility] Lymphocytes/100 WBC (Bld) 16.3 % [facility] MCH (RBC) [Entitic mass] 28.0 pg 26.0 - 34.0 pg [facility] MCHC (RBC) [Mass/Vol] 31.7 g/dL 30.5 - 36.0 g/dL [facility] MCV (RBC) [Entitic vol] 88.4 fL 80.0 - 100.0 fL [facility] Monocytes (Bld) [#/Vol] 1.17 10*3/uL High <0.87 k/uL [facility] Monocytes/100 WBC (Bld) 10.2 % [facility] Neutrophils (Bld) [#/Vol] 8.04 10*3/uL High 1.45 - 7.50 k/uL [facility] Neutrophils/100 WBC (Bld) 70.0 % [facility] Nucleated RBC (Bld) [#/Vol] <0.01 k/uL [facility] Nucleated RBC/100 WBC (Bld) [Ratio] 0.0 /100 WBC [facility] Platelet mean volume (Bld) [Entitic vol] 9.4 fL 9.0 - 12.7 fL [facility] Platelets (Bld) [#/Vol] 389 10*3/uL 150 - 400 k/uL [facility] RBC (Bld) [#/Vol] 4.14 10*6/uL 3.90 - 5.2 0 m/uL [facility] WBC (Bld) [#/Vol] 11.48 10*3/uL High 3.70 - 11.00 k/uL [facility] Comprehensive metabolic 2000 panelon 05-19-2022 Albumin [Mass/Vol] 4.1 g/dL 3.9 - 4.9 g/dL [facility] ALP [Catalytic activity/Vol] 81 U/L 34 - 123 U/L [facility] ALT [Catalytic activity/Vol] 9 U/L 7 - 38 U/L [facility] Anion gap [Moles/Vol] 9 mmol/L 9 - 18 mmol/L [facility] AST [Catalytic activity/Vol] 18 U/L 13 - 35 U/L [facility] Bilirubin [Mass/Vol] 0.5 mg/dL 0.2 - 1 .3 mg/dL [facility] Calcium [Mass/Vol] 9.9 mg/dL 8.5 - 10. 2 mg/dL [facility] Chloride [Moles/Vol] 99 mmol/L 97 - 10 5 mmol/L [facility] CO2 [Moles/Vol] 29 mmol/L 22 - 30 mmol/L [facility] Creatinine [Mass/Vol] 0.78 mg/dL 0.58 - 0.96 mg/dL [facility] Estimated Glomerular Filtration Rate 81 mL/min/1.73m >=60 mL/min/1.73 m [facility] Glucose [Mass/Vol] 118 mg/dL High 74 - 99 mg/dL [facility] Potassium [Moles/Vol] 3.6 mmol/L Low 3.7 - 5.1 mmol/L [facility] Protein [Mass/Vol] 6.9 g/dL 6.3 - 8.0 g/dL [facility] Sodium [Moles/Vol] 137 mmol/L 136 - 144 mmol/L [facility] Urea nitrogen [Mass/Vol] 19 mg/dL 7 - 21 mg/dL [facility] Office Visit (Cardiology)on 05-12-2022 Follow-up visit Diagnoses/Problems Assessed Essential hypertension (401.9) (I10) LBBB (left bundle branch block) (426.3) (I44.7) Mitral regurgitation (424.0) (I34.0) Cancer (199.1) (C80.1) Never smoker Overweight with body mass index (BMI) of 29 to 29.9 in adult (278.02,V85.25) (E66.3,Z68.29) Chest pain (786.50) (R07.9) Orders Chest pain, LBBB (left bundle branch block) Start: Aspirin 81 MG Oral Tablet Delayed Release; TAKE 1 TABLET DAILY NM Cardiac Stress/Rest Nuclear Med Order; Status:Active; Requested for:[id number]; Radiologist to Determine Optimal Study : Y What are the patient's signs and symptoms? : chest pain Overweight with body mass index (BMI) of 29 to 29.9 in adult Healthy Weight Tips; Status:Complete; Done: 12May2022 Some eating tips that can help you lose weight.; Status:Complete; Done: 12May2022 SocHx: Never smoker Tobacco Use Screening; Status:Complete; Done: 12May2022 Patient Instructions Please bring all medicines, vitamins, and herbal supplements with you when you come to the office. Prescriptions will not be filled unless you are compliant with your follow up appointments or have a follow up appointment scheduled as per instruction of your physician. Refills should be requested at the time of your visit. Keep follow up appt as scheduled Chief Complaint RENUKA OWEN is being seen for follow-up of a hospitalization for chest pain and SOB. Patient is in the office for follow-up for the problems noted below but recently was at [facility] for chest pain and had ruled out for myocardial infarction was advised to have further cardiac work-up was discharged. She is known to have hypertension and left bundle branch block, she is nondiabetic and non-smoker. Since discharge she has been stable with no recurrent symptoms. Examination today was only remarkable for overweight. Based on the patient's presentation and the recent event the patient would benefit from a nuclear stress test to assess for myocardial ischemia. Patient is agreeable to proceed and will be scheduled. Cardiac and pulmonary examinations were normal today. She does have mitral regurgitation which has been following by echocardiograms. ASSESSMENT AND PLAN: 1. Hypertension, currently under control. On Coreg only which has been well-tolerated 2. Overweight, encouraged cutting back calorie intake. She has lost 10 pounds since her last visit 3. Chronic left bundle branch block, inconsequential, last EKG in August 2021 4. Moderate mitral regurgitation to be followed noninvasively it remains asymptomatic. Echocardiogram will be scheduled before next visit. Last echocardiogram January 2021. Ejection fraction 55-60% 5. Recent event of chest pain requiring an ER visit to [facility]. Assessment was negative in the ER. Nuclear stress test is recommended and will be scheduled Bryce Hendrickson MD, [facility] Surgical History Problems History of Appendectomy History of Back surgery 10/22 03/24 History of Cataract surgery History of Cholecystectomy History of Colonoscopy History of Hysterectomy History of Knee replacement History of Rotator cuff repair Past Medical History Problems History of Encounter for immunization (V03.89) (Z23) History of syncope (V15.89) (Z87.898) Resolved Date: 10 Feb 2022 History of Nonischemic cardiomyopathy (425.4) (I42.8) Resolved Date: 10 Feb 2022 Current Meds Medication NameInstruction Aleve TABSas needed Allergy 10 MG TABSTAKE 1 TABLET DAILY. Baclofen 20 MG Oral TabletTAKE 1 TABLET DAILY NEEDED. Carvedilol 6.25 MG Oral TabletTAKE 1 TABLET TWICE DAILY WITH MEALS. Flonase 50 MCG/ACT SUSPas directed hydroCHLOROthiazide 12.5 MG Oral CapsuleTAKE 1 CAPSULE ONCE DAILY. Neurontin 300 MG Oral Capsule1 TAB AM 2NOON 2PM DAILY Omeprazole 20 MG Oral Capsule Delayed ReleaseTAKE 1 CAPSULE DAILY EVERY MORNING BEFORE BREAKFAST. Ultram 50 MG TABSTAKE 1 TABLET 2 TIMES DAILY NEEDED. Allergies Medication Lipitor Hives; Rash; Recorded By: Fang Justin; 06/20/2021 2:36:54 PM Statins Hives;; Updated By: Pari Teague; 02/10/2022 8:53:32 AM Penicillins Recorded By: Fang Justin; 06/20/2021 2:36:54 PM Social History Problems Alcohol use (V49.89) (Z78.9) Never smoker No caffeine use No illicit drug use Review of Systems Constitutional: not feeling tired. Cardiovascular: chest pain, but no intermittent leg claudication and as noted in HPI. Respiratory: shortness of breath during exertion, but no cough and no shortness of breath. Gastrointestinal: no change in bowel habits and no blood in stools. Integumentary: no skin rashes. Neurological: no seizures and no frequent falls. All other systems have been reviewed and are negative for complaint. Vitals Vital Signs Recorded: 12May2022 11:27AM Heart Rate72, R Radial Ancgcfrd629, RUE, Sitting Ariyvxkjs78, RUE, Sitting Height5 ft 1 in Auxcvu933 lb BMI Pzcwghwlux01.67 kg/m2 BSA Calculated1.7 Tobacco Useb) No PH (more content not included)... Normal [facility] Tobacco Screening.on 023 Adult depression screening assessment No [facility] [employer] DO Work Phone: Fall risk assessment a) No falls within the last year [facility] [employer] DO Work Phone: Tobacco use status CPHS b) No M [facility] [employer] DO Work Phone: CTA CHEST WO W CONon 023 CTA CHEST WO W CON EXAMINATION: CTA CHEST WO W CON HISTORY: CHEST PAIN, UNSPECIFIED COMPARISON: Chest x-ray 03/08/2020 TECHNIQUE: CT angiography of the pulmonary arteries following the administration of intravenous contrast. Coronal and sagittal MIP (maximum intensity projection) images were performed. 3-D reconstruction. Dose reduction techniques were achieved by using automated exposure control and/or adjustment of mA and/or kV according to patient size and/or use of iterative reconstruction technique. FINDINGS: No evidence for acute pulmonary embolism, thoracic aortic aneurysm, or aortic dissection. Mild cardiomegaly with trace 3 mm thick pericardial effusion. Central airway is patent. Moderate bilateral upper and lower lung linear scar. Mild focal left upper anterior peripheral lung fibrotic scar. Mosaic attenuation of the bilateral lungs reflect sequela of reactive airway inflammation or hypoventilatory changes. No lobar lung consolidation, large pleural effusions, or pneumothorax. Minimal hiatal hernia. No acute bony abnormality. IMPRESSION: No evidence for acute pulmonary embolism, thoracic aortic aneurysm, or aortic dissection. Mild cardiomegaly with trace 3 mm thick pericardial effusion. Mosaic attenuation of the bilateral lungs reflect sequela of reactive airway inflammation or hypoventilatory changes. Moderate bilateral upper and lower lung linear scar. Mild focal left upper anterior peripheral lung fibrotic scar. Electronically authenticated by: EMORY WILSON Date: 2022-05-11 00:34 Normal [facility] Covid-19 PCR (CVDTBH)on SARS-CoV-2 (COVID-19) RNA JANET+probe Ql (Unsp spec) Not detected Normal NOT DETECTED [facility] Comment on above: Result Comment: When diagnostic testing is negative, the possibility of a false negative should be considered in the context of a patient's recent exposures and the presence of clinical signs and symptoms consistent with SARS-CoV-2. This test is not yet approved or cleared by the [place] FDA. When there are no FDA-approved or cleared tests available, and other criteria are met, FDA can make tests available under an emergency access mechanism called an Emergency Use Authorization (EUA). The EUA for this test is supported by the [employer] of Health and Human Service's declaration that circumstances exist to justify the emergency use of in vitro diagnostics for the detection and/or diagnosis of the virus that causes COVID-19. This EUA will remain in effect for the duration of the COVID-19 declaration justifying emergency of IVDs, unless it is terminated or revoked by the FDA (after which the test may no longer be used). Performed By: #### L ACT #### [facility] [address] [address] [address] Isabell Peña ECHOCARDIO M/2D COMPLETEon 0 05-11-2022 ECHOCARDIO M/2D COMPLETE Patient: RENUKA OWEN Exam Date: 05/11/2022 : 1950 Gender:F Ordering : VIVI CHAMBERS . Admission #: [id number] Family : DR MERVIN JACOB D.O. Order #: [id number] CLICK HERE TO VIEW EXAM ECHOCARDIOGRAM REPORT PROCEDURE: CARDIO PULMONARY ECHOCARDIO M/2D COMP INDICATIONS: Chest pain, hypertension COMPARISON: None. DESCRIPTION: COMPLETE ECHOCARDIOGRAM Real-time transthoracic echocardiography with 2D, M-mode, spectral and color flow Doppler performed. QUALITY: Technically difficult due to interference from breast implant. 62 158# BP 98/45 LEFT VENTRICLE: Normal chamber size. Normal left ventricular wall thickness. LV EF: Normal left ventricular ejection fraction, (>55%). Cannot comment on regional wall motion abnormalities. DIASTOLIC: Normal diastolic function. ATRIAL SEPTUM: Inadequately seen. LEFT ATRIUM: Normal chamber size. RIGHT ATRIUM: Not well visualized. RIGHT VENTRICLE: Appears normal in size. TRICUSPID VALVE: Not well visualized. No stenosis with no regurgitation. MITRAL VALVE: Normal mobility and thickness. No evidence of mitral valve stenosis. There is no mitral annular calcification. AORTIC VALVE: Normal trileaflet appearance. No visible sclerosis. Normal leaflet mobility. No evidence of aortic valve stenosis. No aortic regurgitation. AORTIC ROOT: Normal diameter and appearance. PULMONIC VALVE: Not well visualized. No stenosis. No regurgitation. PERICARDIUM: Anterior free space; trivial effusion versus fat pad. IVC: Not well visualized. CONCLUSION: Global left ventricular systolic function is normal; visually estimated ejection fraction is 55 to 60%. Cannot comment on regional wall motion abnormalities. The left atrium is normal in size. Normal diastolic function. The right ventricle is poorly seen but appears normal in size. Valves are poorly seen; no significant valvular abnormalities. Anterior free space; trivial effusion versus fat pad. Adult Echocardiography Procedure Report Left Ventricle LVEDD (3.7 - 5.6 cm): 3.77 cm LVESD (2.2 - 4.0 cm): 2.46 cm, 2.30 cm LVIVS thickness (0.6 - 1.2 cm): 0.96 cm LVPW thickness (0.5 - 1.0 cm): 0.85 cm e': 0.06 m/s E - e': 9.19 LVOT Max Gradient: 3.76 mm[Hg] Peak Velocity (LVOT): 0.97 m/s LVOT Diameter 1.88 cm Left Ventricular Ejection Fraction: 67.51 %, 64.71 % Left Atrium Left Atrium Systolic Dimension: 3.19 cm Mitral Valve MV E to A Ratio: 0.64 Mitral Valve A-Wave Peak Velocity: 0.90 m/s Mitral Valve E-Wave Peak Velocity: 0.58 m/s Right Ventricle Aorta AO Root Diam: 2.48 cm Aortic Valve AoV Area (Peak Benjamin): 1.93 cm2, 1.93 cm2 Peak Velocity(Antegrade Flow): 1.40 m/s Peak Gradient(Antegrade Flow): 7.79 mm[Hg] Tricuspid Valve Pulmonic Valve Peak Velocity: 0.87 m/s, 0.94 m/s Peak Gradient: 3.05 mm[Hg], 3.57 mm[Hg] Right Atrium Dictated by: Kun Kent M.D. on 05/14/2022 at 10:23 Approved by: Kun Kent M.D. on 05/14/2022 at 10:30 Normal [facility] POTASSIUMon 05-11-2022 Potassium [Moles/Vol] 3.5 mmol/L Normal 3.5-5.1 [facility] Comment on above: Performed By: #### K #### [facility] [address] [place] [address] Dr. Isabell Peña TROPONIN, HIGH SENSITIVITYon 05-11-2022 HSTROP 14.0 pg/mL Normal 4.0-51.3 [facility] Comment on above: Result Comment: CUT- OFF POINTS HAVE BEEN ESTABLISHED BASED ON THE FOURTH UNIVERSAL DEFINITIONS OF MYOCARDIAL INFARCTION. THE UPPER REFERENCE LIMIT (URL) OF TROPONIN, DEFINED THE 99TH PERCENTILE OF cTnI DISTRIBUTION IN A REFERENCE POPULATION, HAS BEEN CONFIRMED THE DECISION THRESHOLD FOR MD DIAGNOSIS. Performed By: #### H STROPN #### [facility] [address] [place] [address] Dr. Isabell Peña HSTROP 15.3 pg/mL Normal 4.0-51.3 [facility] Comment on above: Result Comment: CUT- OFF POINTS HAVE BEEN ESTABLISHED BASED ON THE FOURTH UNIVERSAL DEFINITIONS OF MYOCARDIAL INFARCTION. THE UPPER REFERENCE LIMIT (URL) OF TROPONIN, DEFINED THE 99TH PERCENTILE OF cTnI DISTRIBUTION IN A REFERENCE POPULATION, HAS BEEN CONFIRMED THE DECISION THRESHOLD FOR MD DIAGNOSIS. Performed By: #### H STROPN #### [facility] [address] [address] [address] Isabell Peña HSTROP 13.2 pg/mL Normal 4.0-51.3 [facility] Comment on above: Result Comment: CUT- OFF POINTS HAVE BEEN ESTABLISHED BASED ON THE FOURTH UNIVERSAL DEFINITIONS OF MYOCARDIAL INFARCTION. THE UPPER REFERENCE LIMIT (URL) OF TROPONIN, DEFINED THE 99TH PERCENTILE OF cTnI DISTRIBUTION IN A REFERENCE POPULATION, HAS BEEN CONFIRMED THE DECISION THRESHOLD FOR MD DIAGNOSIS. Performed By: #### H STROPN #### [facility] [address] [place] [address] Dr. Isabell Peña BNPon 05-10-2022 Natriuretic peptide B (Bld) [Mass/Vol] 663.0 pg/mL Normal <=900.0 [facility] Comment on above: Performed By: #### B MERCHANDISE FLOW MANAGER, CMP, HSTROPN #### [facility] [address] [place] [address] Dr. Isabell Peña CBC AUTO DIFFon 05-10-2022 BASO # 0.1 103/ul Normal 0.0-0.1 [facility] Comment on above: Performed By: #### H STROPN #### [facility] [address] [place] [address] Dr. Isabell Peña Basophils/100 WBC (Bld) 0.4 % Normal 0.2-2.0 [facility] Comment on above: Performed By: #### H STROPN #### [facility] [address] [place] [address] Dr. Isabell Peña EO # 0.2 103/ul Normal 0.0-0.7 [facility] Comment on above: Performed By: #### H STROPN #### [facility] [address] [place] [address] Dr. Isabell Peña Eosinophils/100 WBC (Bld) 1.4 % Normal 0.9-7.0 [facility] Comment on above: Performed By: #### H STROPN #### [facility] [address] [place] [address] Dr. Isabell Peña Erythrocyte distribution width (RBC) [Ratio] 15.7 % Critically high 11.0-15.0 [facility] Comment on above: Performed By: #### H STROPN #### [facility] [address] [address] [address] Isabell Peña Hematocrit (Bld) [Volume fraction] 32.9 % Critically low 36.0-48.0 [facility] Comment on above: Performed By: #### H STROPN #### [facility] [address] [address] [address] Isabell Peña Hemoglobin (Bld) [Mass/Vol] 11.4 g/dL Critically low 12.0-16.0 [facility] Comment on above: Performed By: #### H STROPN #### [facility] [address] [address] [address] Isabell Peña IG # 0.06 10e3/ul Critically high 0.00-0.03 [facility] Comment on above: Performed By: #### H STROPN #### [facility] [address] [place] [address] Dr. Isabell Peña IG % 0.5 % Normal 0.0-0.5 [facility] Comment on above: Performed By: #### H STROPN #### [facility] [address] [place] [address] Dr. Isabell Peña LYMPH # 1.6 103/ul Normal 1.2-3.8 [facility] Comment on above: Performed By: #### H STROPN #### [facility] [address] [place] [address] Dr. Isabell Peña Lymphocytes/100 WBC (Bld) 13.7 % Critically low 20.5-60.0 [facility] Comment on above: Performed By: #### H STROPN #### [facility] [address] [place] [address] Dr. Isabell Peña MANUAL DIFF REQ NO Normal [facility] Comment on above: Performed By: #### H STROPN #### [facility] [address] [place] [address] Dr. Isabell Peña MCH (RBC) [Entitic mass] 28.3 pg Normal 26.7-34.0 [facility] Comment on above: Performed By: #### H STROPN #### [facility] [address] [address] [address] Isabell Peña MCHC (RBC) [Mass/Vol] 34.7 g/dL Normal 29.9-35.2 [facility] Comment on above: Performed By: #### H STROPN #### [facility] [address] [place] [address] Dr. Isabell Peña MCV (RBC) [Entitic vol] 81.6 fL Normal 81.0-99.0 [facility] Comment on above: Performed By: #### H STROPN #### [facility] [address] [address] [address] Isabell Peña MONO # 1.2 103/ul Critically high 0.3-0.8 [facility] Comment on above: Performed By: #### H STROPN #### [facility] [address] [place] [address] Dr. Isabell Peña Monocytes/100 WBC (Bld) 10.7 % Normal 1.7-12.0 [facility] Comment on above: Performed By: #### H STROPN #### [facility] [address] [place] [address] Dr. Isabell Peña NEUT # 8.3 103/ul Critically high 1.4-6.5 [facility] Comment on above: Performed By: #### H STROPN #### [facility] [address] [place] [address] Dr. Isabell Peña Neutrophils/100 WBC (Bld) 73.3 % Normal 43.0-75.0 [facility] Comment on above: Performed By: #### H STROPN #### [facility] [address] [place] [address] Dr. Isabell Peña Platelet mean volume (Bld) [Entitic vol] 8.4 fL Critically low 9.5-13.5 [facility] Comment on above: Performed By: #### H STROPN #### [facility] [address] [place] [address] Dr. Isabell Peña PLT 380 103/ul Normal 150-450 [facility] Comment on above: Performed By: #### H STROPN #### [facility] [address] [address] [address] Isabell Peña RBC 4.03 106/ul Critically low 4.20-5.40 [facility] Comment on above: Performed By: #### H STROPN #### [facility] [address] [place] [address] Dr. Isabell Peña WBC 11.4 103/ul Critically high 4.0-11.0 [facility] Comment on above: Performed By: #### H STROPN #### [facility] [address] [place] [address] Dr. Isabell Peña D-DIMERon 05-10-2022 D-DIMER 2.39 mg/L FEU Critically high <=0.59 [facility] Comment on above: Performed By: #### D DIM #### [facility] [address] [place] [address] Dr. Isabell Peña D-DIMER COMMENTS SEE BELOW Normal [facility] Comment on above: Result Comment: Incr eases in D-Dimer concentration observed with thromboembolic events can be variable due to localization, size, and age of the thrombus. Therefore, a thromboembolic event cannot be diagnosed with certainty on the basis of the reference range. D-Dimers may also be elevated for a variety of disorders including: advanced age, , coronary disease, cancer, liver disease, infection, inflammation, hematoma, DIC, trauma, post-surgery, diabetes, thrombolytic or anticoagulant therapy, stress, and generalized hospitalization. Performed By: #### D DIM #### [facility] [address] [place] [address] Dr. Isabell Peña PROF 14(COMP METB)on 023 Albumin [Mass/Vol] 3.4 g/dL Normal 3.4-5.0 [facility] Comment on above: Performed By: #### B MERCHANDISE FLOW MANAGER, CMP, HSTROPN #### [facility] [address] [place] [address] Dr. Isabell Peña Albumin/Globulin [Mass ratio] 1.1 {ratio} Normal [facility] Comment on above: Performed By: #### B MERCHANDISE FLOW MANAGER, CMP, HSTROPN #### [facility] [address] [address] [address] Isabell Peña ALP [Catalytic activity/Vol] 99 U/L Normal 46-116 [facility] Comment on above: Performed By: #### B MERCHANDISE FLOW MANAGER, CMP, HSTROPN #### [facility] [address] [address] [address] Isabell Peña ALT [Catalytic activity/Vol] 15 U/L Normal 14-59 [facility] Comment on above: Performed By: #### B MERCHANDISE FLOW MANAGER, CMP, HSTROPN #### [facility] [address] [address] [address] Isabell Peña Anion gap [Moles/Vol] 12.0 mmol/L Normal [facility] Comment on above: Performed By: #### B MERCHANDISE FLOW MANAGER, CMP, HSTROPN #### [facility] [address] [place] [address] Dr. Isabell Peña AST [Catalytic activity/Vol] 20 U/L Normal 15-37 [facility] Comment on above: Performed By: #### B MERCHANDISE FLOW MANAGER, CMP, HSTROPN #### [facility] [address] [address] [address] Isabell Peña Bilirubin [Mass/Vol] 0.4 mg/dL Normal 0.2-1.0 [facility] Comment on above: Performed By: #### B MERCHANDISE FLOW MANAGER, CMP, HSTROPN #### [facility] [address] [address] [address] Isabell Peña Calcium [Mass/Vol] 8.6 mg/dL Normal 8.5-10.1 [facility] Comment on above: Performed By: #### B MERCHANDISE FLOW MANAGER, CMP, HSTROPN #### [facility] [address] [address] [address] Isabell Peña Chloride [Moles/Vol] 99 mmol/L Normal 98-107 [facility] Comment on above: Performed By: #### B MERCHANDISE FLOW MANAGER, CMP, HSTROPN #### [facility] [address] [address] [address] Isabell Peña CO2 [Moles/Vol] 32.2 mmol/L Critically high 21.0-32.0 [facility] Comment on above: Performed By: #### B MERCHANDISE FLOW MANAGER, CMP, HSTROPN #### [facility] [address] [place] [address] Dr. Isabell Peña Creatinine [Mass/Vol] 0.86 mg/dL Normal 0.55-1.02 [facility] Comment on above: Performed By: #### B MERCHANDISE FLOW MANAGER, CMP, HSTROPN #### [facility] [address] [address] [address] Isabell Peña EGFR-AF THAI >60 Normal >=60 [facility] Comment on above: Performed By: #### B MERCHANDISE FLOW MANAGER, CMP, HSTROPN #### [facility] [address] [place] [address] Dr. Isabell Peña EGFR-NON AF THAI >60 Normal >=60 [facility] Comment on above: Performed By: #### B MERCHANDISE FLOW MANAGER, CMP, HSTROPN #### [facility] [address] [place] [address] Dr. Isabell Peña Globulin (S) [Mass/Vol] 3.2 g/dL Normal [facility] Comment on above: Performed By: #### B MERCHANDISE FLOW MANAGER, CMP, HSTROPN #### [facility] [address] [place] [address] Dr. Isabell Peña Glucose [Mass/Vol] 111 mg/dL Critically high 74-106 [facility] Comment on above: Performed By: #### B MERCHANDISE FLOW MANAGER, CMP, HSTROPN #### [facility] [facility] [address] [place] [address] Dr. Isabell Peña Potassium [Moles/Vol] 3.2 mmol/L Critically low 3.5-5.1 [facility] Comment on above: Performed By: #### B MERCHANDISE FLOW MANAGER, CMP, HSTROPN #### [facility] [address] [place] [address] Dr. Isabell Peña Protein [Mass/Vol] 6.6 g/dL Normal 6.4-8.2 [facility] Comment on above: Performed By: #### B MERCHANDISE FLOW MANAGER, CMP, HSTROPN #### [facility] [address] [place] [address] Dr. Isabell Peña Sodium [Moles/Vol] 140 mmol/L Normal 136-145 [facility] Comment on above: Performed By: #### B MERCHANDISE FLOW MANAGER, CMP, HSTROPN #### [facility] [address] [place] [address] Dr. Isabell Peña Urea nitrogen [Mass/Vol] 22.0 mg/dL Critically high 7.0-18.0 [facility] Comment on above: Performed By: #### B MERCHANDISE FLOW MANAGER, CMP, HSTROPN #### [facility] [address] [place] [address] Dr. Isabell Peña Urea nitrogen/Creatinine [Mass ratio] 25.6 mg/mg Normal [facility] Comment on above: Performed By: #### B MERCHANDISE FLOW MANAGER, CMP, HSTROPN #### [facility] [address] [place] [address] Dr. Isabell Peña TROPONIN, HIGH SENSITIVITYon 05-10-2022 HSTROP 9.6 pg/mL Normal 4.0-51.3 [facility] Comment on above: Result Comment: CUT- OFF POINTS HAVE BEEN ESTABLISHED BASED ON THE FOURTH UNIVERSAL DEFINITIONS OF MYOCARDIAL INFARCTION. THE UPPER REFERENCE LIMIT (URL) OF TROPONIN, DEFINED THE 99TH PERCENTILE OF cTnI DISTRIBUTION IN A REFERENCE POPULATION, HAS BEEN CONFIRMED THE DECISION THRESHOLD FOR MD DIAGNOSIS. Performed By: #### B MERCHANDISE FLOW MANAGER, CMP, HSTROPN #### [facility] [address] [place] [address] Dr. Isabell Peña CULTURE URINEon 04-13-2022 CULTURE URINE Isolate 1 Pseudomonas aeruginosa 10,000 cfu/mL of ORGANISM 1 Pseudomonas aeruginosa ANTIBIOTIC M.I.C RX STATUS Piperacillin/Tazobact am <=4 S F Ceftazidime 4 S F Imipenem 2 S F Amikacin <=2 S F Gentamicin <=1 S F Tobramycin <=1 S F Ciprofloxacin <=0.25 S F Levofloxacin 0.25 S F Normal [facility] Comment on above: Performed By: #### H STROPN #### [facility] [address] [place] [address] Dr. Isabell Peña CBC AUTO DIFFon 04-11-2022 BASO # 0.0 103/ul Normal 0.0-0.1 [facility] Comment on above: Performed By: #### H STROPN #### [facility] [address] [address] [address] Isabell Peña Basophils/100 WBC (Bld) 0.2 % Normal 0.2-2.0 [facility] Comment on above: Performed By: #### H STROPN #### [facility] [address] [address] [address] Isabell Peña EO # 0.1 103/ul Normal 0.0-0.7 [facility] Comment on above: Performed By: #### H STROPN #### [facility] [address] [place] [address] Dr. Isabell Peña Eosinophils/100 WBC (Bld) 0.3 % Critically low 0.9-7.0 [facility] Comment on above: Performed By: #### H STROPN #### [facility] [address] [place] [address] Dr. Isabell Peña Erythrocyte distribution width (RBC) [Ratio] 15.4 % Critically high 11.0-15.0 [facility] Comment on above: Performed By: #### H STROPN #### [facility] [address] [place] [address] Dr. Isabell Peña Hematocrit (Bld) [Volume fraction] 42.4 % Normal 36.0-48.0 [facility] Comment on above: Performed By: #### H STROPN #### [facility] [address] [place] [address] Dr. Isabell Peña Hemoglobin (Bld) [Mass/Vol] 14.2 g/dL Normal 12.0-16.0 [facility] Comment on above: Performed By: #### H STROPN #### [facility] [address] [address] [address] Isabell Peña IG # 0.15 10e3/ul Critically high 0.00-0.03 [facility] Comment on above: Performed By: #### H STROPN #### [facility] [address] [address] [address] Isabell Peña IG % 0.9 % Critically high 0.0-0.5 [facility] Comment on above: Performed By: #### H STROPN #### [facility] [address] [address] [address] Isabell Peña LYMPH # 1.5 103/ul Normal 1.2-3.8 [facility] Comment on above: Performed By: #### H STROPN #### [facility] [address] [address] [address] Isabell Peña Lymphocytes/100 WBC (Bld) 9.1 % Critically low 20.5-60.0 [facility] Comment on above: Performed By: #### H STROPN #### [facility] [address] [place] [address] Dr. Isabell Peña MANUAL DIFF REQ NO Normal [facility] Comment on above: Performed By: #### H STROPN #### [facility] [address] [place] [address] Dr. Isabell Peña MCH (RBC) [Entitic mass] 27.5 pg Normal 26.7-34.0 [facility] Comment on above: Performed By: #### H STROPN #### [facility] [address] [place] [address] Dr. Isabell Peña MCHC (RBC) [Mass/Vol] 33.5 g/dL Normal 29.9-35.2 [facility] Comment on above: Performed By: #### H STROPN #### [facility] [address] [place] [address] Dr. Isabell Peña MCV (RBC) [Entitic vol] 82.2 fL Normal 81.0-99.0 [facility] Comment on above: Performed By: #### H STROPN #### [facility] [address] [place] [address] Dr. Isabell Peña MONO # 1.1 103/ul Critically high 0.3-0.8 [facility] Comment on above: Performed By: #### H STROPN #### [facility] [address] [address] [address] Isabell Peña Monocytes/100 WBC (Bld) 6.4 % Normal 1.7-12.0 [facility] Comment on above: Performed By: #### H STROPN #### [facility] [address] [address] [address] Isabell Peña NEUT # 13.8 103/ul Critically high 1.4-6.5 [facility] Comment on above: Performed By: #### H STROPN #### [facility] [address] [address] [address] Isabell Peña Neutrophils/100 WBC (Bld) 83.1 % Critically high 43.0-75.0 [facility] Comment on above: Performed By: #### H STROPN #### [facility] [address] [place] [address] Dr. Isabell Peña Platelet mean volume (Bld) [Entitic vol] 8.7 fL Critically low 9.5-13.5 [facility] Comment on above: Performed By: #### H STROPN #### [facility] [address] [address] [address] Isabell Peña PLT 438 103/ul Normal 150-450 [facility] Comment on above: Performed By: #### H STROPN #### [facility] [address] [place] [address] Dr. Isabell Peña RBC 5.16 106/ul Normal 4.20-5.40 [facility] Comment on above: Performed By: #### H STROPN #### [facility] [address] [address] [address] Isabell Peña WBC 16.7 103/ul Critically high 4.0-11.0 [facility] Comment on above: Performed By: #### H STROPN #### [facility] [address] [address] [address] Isabell Peña CRPon 04-11-2022 CRP [Mass/Vol] mg/L Normal <=1.0 [facility] Comment on above: Performed By: #### H STROPN #### [facility] [address] [place] [address] Dr. Isabell Peña ER URINE PROFILEon 2 Bilirubin Ql (U) Negative Normal NEGATIVE [facility] Comment on above: Performed By: #### Galo POLLACK UMICRO #### [facility] [address] [place] [address] Dr. Isabell Peña Clarity (U) CLEAR Normal CLEAR [facility] Comment on above: Performed By: #### Galo POLLACK UMICRO #### [facility] [address] [place] [address] Dr. Isabell Peña Color (U) LT. YELLOW Normal YELLOW [facility] Comment on above: Performed By: #### CARLENE TERESARO #### [facility] [address] [place] [address] Dr. Isabell AVILEZ A micrscopic examination will be performed if indicated. Normal [facility] Comment on above: Performed By: #### TAYE TERESAICRO #### [facility] [address] [place] [address] Dr. Isabell Peña Glucose Ql (U) Negative Normal NEGATIVE [facility] Comment on above: Performed By: #### TAYE TERESAICRO #### [facility] [address] [place] [address] Dr. Isabell Peña Hemoglobin Ql (U) Negative Normal NEGATIVE [facility] Comment on above: Performed By: #### TAYE TERESAICRO #### [facility] [address] [place] [address] Dr. Isabell Peña Ketones Ql (U) Negative Normal NEGATIVE [facility] Comment on above: Performed By: #### CARLENE TERESARO #### [facility] [address] [place] [address] Dr. Isabell Peña LEUKOCYTES LARGE Abnormal NEGATIVE [facility] Comment on above: Performed By: #### TAYE TERESAICRO #### [facility] [address] [place] [address] Dr. Isabell Peña Nitrite Ql (U) Negative Normal NEGATIVE [facility] Comment on above: Performed By: #### Galo POLLACK, UMICRO #### [facility] [address] [place] [address] Dr. Isabell Peña pH (U) 6.5 [pH] Normal 5-9 [facility] Comment on above: Performed By: #### Galo POLLACK, UMICRO #### [facility] [address] [place] [address] Dr. Isabell Peña SPEC GRAVITY 1.010 Normal 1.005-<=1.[address] [place] [address] Comment on above: Performed By: #### Galo POLLACK, UMICRO #### [facility] [address] [place] [address] Dr. Isabell Peña UA PROTEIN Negative Normal NEGATIVE/ TRACE [facility] Comment on above: Performed By: #### Galo POLLACK, UMICRO #### [facility] [address] [place] [address] Dr. Isabell Peña UR MICRO IND INDICATED Normal [facility] Comment on above: Performed By: #### Galo POLLACK, UMICRO #### [facility] [address] [place] [address] Dr. Isabell Peña Urobilinogen Qn (U) 0.2 {Bradly'U}/dL Normal 0.2 - 1. 0 [facility] Comment on above: Performed By: #### Galo POLLACK, UMICRO #### [facility] [address] [place] [address] Dr. Isabell Peña LACTATE/LACTIC ACIDon 2021 Lactate [Moles/Vol] 1.2 mmol/L Normal 0.4-1.9 [facility] Comment on above: Performed By: #### L ACT #### [facility] [address] [place] [address] Dr. Isabell Peña PROF 14(COMP METB)on 022 Albumin [Mass/Vol] 3.6 g/dL Normal 3.4-5.0 [facility] Comment on above: Performed By: #### H STROPN #### [facility] [address] [place], [place] [id number] Dr. Isabell Peña Albumin/Globulin [Mass ratio] 1.0 {ratio} Normal [facility] Comment on above: Performed By: #### H STROPN #### [facility] [address] [place] [address] Dr. Isabell Peña ALP [Catalytic activity/Vol] 79 U/L Normal 46-116 [facility] Comment on above: Performed By: #### H STROPN #### [facility] [address] [address] [address] Isabell Peña ALT [Catalytic activity/Vol] 23 U/L Normal 14-59 [facility] Comment on above: Performed By: #### H STROPN #### [facility] [address] [place] [address] Dr. Isabell Peña Anion gap [Moles/Vol] 12.7 mmol/L Normal [facility] Comment on above: Performed By: #### H STROPN #### [facility] [address] [place] [address] Dr. Isabell Peña AST [Catalytic activity/Vol] 19 U/L Normal 15-37 [facility] Comment on above: Performed By: #### H STROPN #### [facility] [address] [place] [address] Dr. Isabell Peña Bilirubin [Mass/Vol] 0.7 mg/dL Normal 0.2-1.0 [facility] Comment on above: Performed By: #### H STROPN #### [facility] [address] [place] [address] Dr. Isabell Peña Calcium [Mass/Vol] 9.8 mg/dL Normal 8.5-10.1 [facility] Comment on above: Performed By: #### H STROPN #### [facility] [address] [place] [address] Dr. Isabell Peña Chloride [Moles/Vol] 93 mmol/L Critically low 98-107 [facility] Comment on above: Performed By: #### H STROPN #### [facility] [address] [place] [address] Dr. Isabell Peña CO2 [Moles/Vol] 29.9 mmol/L Normal 21.0-32.0 [facility] Comment on above: Performed By: #### H STROPN #### [facility] [address] [address] [address] Isabell Peña Creatinine [Mass/Vol] 1.14 mg/dL Critically high 0.55-1.02 [facility] Comment on above: Performed By: #### H STROPN #### [facility] [address] [address] [address] Isabell Peña EGFR-AF THAI 57 mL/min/1.73m2 Critically low >=60 [facility] Comment on above: Performed By: #### H STROPN #### [facility] [address] [address] [address] Isabell Peña EGFR-NON AF THAI 47 mL/min/1.73m2 Critically low >=60 [facility] Comment on above: Performed By: #### H STROPN #### [facility] [address] [address] [address] Isabell Peña Globulin (S) [Mass/Vol] 3.7 g/dL Normal [facility] Comment on above: Performed By: #### H STROPN #### [facility] [address] [place] [address] Dr. Isabell Peña Glucose [Mass/Vol] 110 mg/dL Critically high 74-106 [facility] Comment on above: Performed By: #### H STROPN #### [facility] [address] [address] [address] Isabell Peña Potassium [Moles/Vol] 3.6 mmol/L Normal 3.5-5.1 [facility] Comment on above: Performed By: #### H STROPN #### [facility] [address] [place] [address] Dr. Isabell Peña Protein [Mass/Vol] 7.3 g/dL Normal 6.4-8.2 [facility] Comment on above: Performed By: #### H STROPN #### [facility] [address] [place] [address] Dr. Isabell Peña Sodium [Moles/Vol] 132 mmol/L Critically low 136-145 [facility] Comment on above: Performed By: #### H JACKY #### [facility] [address] [place] [address] Dr. Isabell Peña Urea nitrogen [Mass/Vol] 30.0 mg/dL Critically high 7.0-18.0 [facility] Comment on above: Performed By: #### H JAQUELINPN #### [facility] [address] [place] [address] Dr. Isabell Peña Urea nitrogen/Creatinine [Mass ratio] 26.3 mg/mg Normal [facility] Comment on above: Performed By: #### H JAQUELINPN #### [facility] [address] [place] [address] Dr. Isabell Peña TROPONIN, HIGH SENSITIVITYon 04-11-2022 HSTROP 13.5 pg/mL Normal 4.0-51.3 [facility] Comment on above: Result Comment: CUT- OFF POINTS HAVE BEEN ESTABLISHED BASED ON THE FOURTH UNIVERSAL DEFINITIONS OF MYOCARDIAL INFARCTION. THE UPPER REFERENCE LIMIT (URL) OF TROPONIN, DEFINED THE 99TH PERCENTILE OF cTnI DISTRIBUTION IN A REFERENCE POPULATION, HAS BEEN CONFIRMED THE DECISION THRESHOLD FOR MD DIAGNOSIS. Performed By: #### H JACKY #### [facility] [address] [place] [address] Dr. Isabell Peña TSHon 04-11-2022 TSH 2.628 uIU/mL Normal 0.358-3.740 [facility] Comment on above: Performed By: #### H JAQUELINPN #### [facility] [address] [place] [address] Dr. Isabell Peña URINE MICROSCOPIC ONLYon BACTERIA NONE SEEN Normal NONE SEEN [facility] Comment on above: Performed By: #### KAREN TERESA #### [facility] [address] [place] [address] Dr. Isabell Peña Bacteria identified Cx Nom (U) INDICATED Normal [facility] Comment on above: Performed By: #### KAREN TERESA #### [facility] [address] [place] [address] Dr. Isabell Peña CAST NONE SEEN Normal NONE SEEN [facility] Comment on above: Performed By: #### E RUR, UMICRO #### [facility] [address] [place] [address] Dr. Isabell Peña Crystals LM Nom (Urine sed) NONE SEEN Normal NONE SEEN [facility] Comment on above: Performed By: #### E RUR, UMICRO #### [facility] [address] [place] [address] Dr. Isabell Peña Epithelial cells LM Ql (Urine sed) FEW Abnormal NONE SEEN /RARE [facility] Comment on above: Performed By: #### E RUR, UMICRO #### [facility] [address] [place] [address] Dr. Isabell Peña MUCOUS NONE SEEN Normal NONE SEEN [facility] Comment on above: Performed By: #### E RUR, UMICRO #### [facility] [address] [place] [address] Dr. Isabell Peña RBC 0-2 Normal 0-2 [facility] Comment on above: Performed By: #### E RUR, UMICRO #### [facility] [address] [place] [address] Dr. Isabell Peña WBC 5-10 Abnormal NONE SEEN [facility] Comment on above: Performed By: #### E RUR, UMICRO #### [facility] [address] [place] [address] Dr. Isabell Peña COVID-19 SOFIAOrdered By: Mk Linder on 03-27-2022 SARS-CoV+SARS-CoV-2 (COVID-19) Ag IA.rapid Ql (Resp) Negative Negative [facility] Comment on above: This is a duplicate [place] SARS Antigen (CORAZON) result to be used for statistical tracking purpose only. No Panel InformationOrdered By: Devin Moreau on 03-27-2022 SARS Antigen (LFIA) [facility] SARS Antigen (LFIA) [facility] Basophils Auto (Bld) [#/Vol] Ordered By: Devin Moreau on 03-16-2022 Basophils (Bld) [#/Vol] 0.1 10*3/uL 0.0-0.2 [facility] Basophils/100 WBC Auto (Bld) Ordered By: Devin Moreau on 03-16-2022 Basophils/100 WBC (Bld) 0.8 % . [facility] Creatinine and Glomerular fi ltration rate.predicted panel (S/P/Bld)Ordered By: Devin Moreau on 03-16-2022 Creatinine [Mass/Vol] 0.98 mg/dL 0.44-1.03 [facility] Eosinophils Auto (Bld) [#/Vo l]Ordered By: Devin Moreau on 03-16-2022 Eosinophils (Bld) [#/Vol] 0.2 10*3/uL 0.0-0.45 [facility] Eosinophils/100 WBC Auto (Bl d)Ordered By: Devin Moreau on 03-16-2022 Eosinophils/100 WBC (Bld) 2.5 % . [facility] Erythrocyte distribution wid th Auto (RBC) [Ratio]Ordered By: Devin Moreau on 03-16-2022 Erythrocyte distribution width (RBC) [Ratio] 15.5 % 11.9-15.3 [facility] Estimated glomerular filtrat ion rate (GFR) non- AmericanOrdered By: Devin Moreau on 03-16-2022 GFR/1.73 sq M.predicted among non-blacks MDRD (S/P/Bld) [Vol rate/Area] 56 mL/Min [facility] Hematocrit Auto (Bld) [Volum e fraction]Ordered By: Devin Moreau on 03-16-2022 Hematocrit (Bld) [Volume fraction] 40.9 % 34.0-46.4 [facility] Hemoglobin [Mass/volume] in BloodOrdered By: Devin Moreau on 03-16-2022 Hemoglobin (Bld) [Mass/Vol] 13.3 g/dL 11.8-15.4 [facility] Laboratory - Hematology and Cell countsOrdered By: Devin Moreau on 03-16-2022 Nucleated RBC/100 WBC (Bld) [Ratio] 0.1 % 0-0.5 [facility] Leukocytes [#/volume] in Blo od by Automated countOrdered By: Devin Moreau on 03-16-2022 WBC (Bld) [#/Vol] 6.8 10*3/uL 4.5-11.0 [facility] Lymphocytes Auto (Bld) [#/Vo l]Ordered By: Devin Moreau on 03-16-2022 Lymphocytes (Bld) [#/Vol] 1.3 10*3/uL 1.00-4.8 [facility] Lymphocytes/100 WBC Auto (Bl d)Ordered By: Devin Moreau on 03-16-2022 Lymphocytes/100 WBC (Bld) 19.5 % . [facility] MCH Auto (RBC) [Entitic mass ]Ordered By: Devin Moreau on 03-16-2022 MCH (RBC) [Entitic mass] 27.7 pg 24.7-34.3 [facility] MCHC Auto (RBC) [Mass/Vol]Or dered By: Devin Moreau on 03-16-2022 MCHC (RBC) [Mass/Vol] 32.6 g/dL 32.0-35.0 [facility] MCV Auto (RBC) [Entitic vol] Ordered By: Devin Moreau on 03-16-2022 MCV (RBC) [Entitic vol] 85.0 fL 80-100 [facility] Monocytes Auto (Bld) [#/Vol] Ordered By: Devin Moreau on 03-16-2022 Monocytes (Bld) [#/Vol] 0.8 10*3/uL 0.0-0.8 [facility] Monocytes/100 WBC Auto (Bld) Ordered By: Devin Moreau on 03-16-2022 Monocytes/100 WBC (Bld) 11.2 % . [facility] Neutrophils Auto (Bld) [#/Vo l]Ordered By: Devin Moreau on 03-16-2022 Neutrophils (Bld) [#/Vol] 4.5 10*3/uL 1.8-7.7 [facility] Neutrophils/100 WBC Auto (Bl d)Ordered By: Devin Moreau on 03-16-2022 Neutrophils/100 WBC (Bld) 66.0 % . [facility] No Panel InformationOrdered By: Devin Moreau on 03-16-2022 Estimated GFR () > 60 mL/Min [facility] Comment on above: GFR estimated refere nce range: According to KDOQI guidelines, <60 ml/min/1.73m2 is sufficient to diagnose a patient with chronic kidney disease. Pharmacy Creatinine Clearance (Chem N/A [facility] Platelet mean volume Auto (B ld) [Entitic vol]Ordered By: Devin Moreau on 03-16-2022 Platelet mean volume (Bld) [Entitic vol] 8.3 fL 6.3-10.7 [facility] Platelets Auto (Bld) [#/Vol] Ordered By: Devin Moreau on 03-16-2022 Platelets (Bld) [#/Vol] 302 10*3/uL 150-450 [facility] RBC Auto (Bld) [#/Vol]Ordere d By: Devin Moreau on 03-16-2022 RBC (Bld) [#/Vol] 4.81 10*6/uL 3.60-5.00 [facility] Serum or plasma anion gap de terminationOrdered By: Devin Moreau on 03-16-2022 Anion gap [Moles/Vol] 13.6 mmol/L 6.0-15.0 [facility] Serum or plasma calcium evan urement (mass/volume)Ordered By: Devin Moreau on 03-16-2022 Calcium [Mass/Vol] 10.0 mg/dL 8.2-10.2 [facility] Serum or plasma chloride kristy surement (moles/volume)Ordered By: Devin Moreau on 03-16-2022 Chloride [Moles/Vol] 98 mmol/L 95-114 [facility] Serum or plasma glucose evan urement (mass/volume)Ordered By: Devin Moreau on 03-16-2022 Glucose [Mass/Vol] 94 mg/dL 70-100 [facility] Comment on above: ADA recommended refe rence rangeRandom Glucose Reference Range is dependent on time and content of last meal. Glucose of more than 200 mg/dL in a nonstressed, ambulatory subject supports the diagnosis of Diabetes Mellitus. Serum or plasma potassium me asurement (moles/volume)Ordered By: Devin Moreau on 03-16-2022 Potassium [Moles/Vol] 4.8 mmol/L 3.5-5.1 [facility] Serum or plasma sodium measu rement (moles/volume)Ordered By: Devin Moreau on 03-16-2022 Sodium [Moles/Vol] 137 mmol/L 136-146 [facility] Serum or plasma total carbon dioxide measurement (moles/volume)Ordered By: Devin Moreau on 03-16-2022 CO2 [Moles/Vol] 30.2 mmol/L 22.0-30.0 [facility] Serum or plasma urea nitroge n measurement (mass/volume)Ordered By: Devin Moreau on 03-16-2022 Urea nitrogen [Mass/Vol] 19 mg/dL 9- [facility] Office Visit (Cardiology)on 02-10-2022 Follow-up visit Diagnoses/Problems Assessed Mitral regurgitation (424.0) (I34.0) LBBB (left bundle branch block) (426.3) (I44.7) Essential hypertension (401.9) (I10) Class 1 obesity with body mass index (BMI) of 30.0 to 30.9 in adult (278.00,V85.30) (E66.9,Z68.30) Never smoker Orders Class 1 obesity with body mass index (BMI) of 30.0 to 30.9 in adult Healthy Weight Tips; Status:Complete - Retrospective Authorization; Done: 10Feb2022 Some eating tips that can help you lose weight.; Status:Complete - Retrospective Authorization; Done: 10Feb2022 Essential hypertension, Mitral regurgitation, PMH: Nonischemic cardiomyopathy Basic Metabolic Panel; Status:Active - Retrospective Authorization; Requested for:[id number]; Complete Blood Count; Status:Active - Retrospective Authorization; Requested for:07Sep2022; Lipid Panel; Status:Active - Retrospective Authorization; Requested for:04Aug2021; Essential hypertension, PMH: Nonischemic cardiomyopathy Renew: Carvedilol 6.25 MG Oral Tablet; TAKE 1 TABLET TWICE DAILY WITH MEALS Mitral regurgitation, PMH: Nonischemic cardiomyopathy Echocardiogram; Status:Hold For - Scheduling,Retrospect segundo Authorization; Requested for:10Feb2023; PMH: Nonischemic cardiomyopathy Continue with our present treatment plan.; Status:Complete - Retrospective Authorization; Done: 10Feb2022 SocHx: Never smoker Tobacco Use Screening; Status:Complete; Done: 10Feb2022 Patient Instructions Please bring all medicines, vitamins, and herbal supplements with you when you come to the office. Prescriptions will not be filled unless you are compliant with your follow up appointments or have a follow up appointment scheduled as per instruction of your physician. Refills should be requested at the time of your visit. Echo-one year Follow up in 1 year. Chief Complaint overdue. Patient is in the office for follow-up for the problems noted below. She has not seen me in 2 years. She reports no symptoms of dyspnea palpitations or chest pain. She is having lower back problem for which she is following with neurosurgery and probably is going to have major operation coming up soon and she will be cleared for that surgery without reservation from a cardiac standpoint. Her mitral valve has been assessed by echocardiograms in the last echocardiogram January 2021 showed moderate regurgitation but normalization of the ejection fraction up to 60% while she has chronic left bundle branch block. She had a fall few months ago without any injuries. Education was provided to protect her from falls. Her weight is down more than 10 pounds since her last visit. Her examination today was normal. ASSESSMENT AND PLAN: 1. Hypertension, currently under control. On Coreg only which has been well-tolerated 2. Borderline obesity, encouraged cutting back calorie intake. She has lost 10 pounds since her last visit 3. Chronic left bundle branch block, not consequential, last EKG in August 2021 4. Moderate mitral regurgitation to be followed noninvasively. Echocardiogram will be scheduled before next visit a year from now. Last echocardiogram January 2021. Ejection fraction 55-60% Bryce Hendrickson MD, [facility] Surgical History Problems History of Appendectomy History of Back surgery History of Cataract surgery History of Cholecystectomy History of Colonoscopy History of Hysterectomy History of Knee replacement History of Rotator cuff repair Past Medical History Problems History of syncope (V15.89) (Z87.898) Resolved Date: 10 Feb 2022 History of Nonischemic cardiomyopathy (425.4) (I42.8) Current Meds Medication NameInstruction Aleve TABSas needed Allergy 10 MG TABSTAKE 1 TABLET DAILY. Baclofen 20 MG Oral TabletTAKE 1 TABLET DAILY NEEDED. Carvedilol 6.25 MG Oral TabletTAKE 1 TABLET TWICE DAILY WITH MEALS. Flonase 50 MCG/ACT SUSPas directed Neurontin 300 MG Oral Capsule1 TAB AM 2NOON 2PM DAILY Omeprazole 20 MG Oral Capsule Delayed ReleaseTAKE 1 CAPSULE DAILY EVERY MORNING BEFORE BREAKFAST. Ultram 50 MG Oral TabletTAKE 1 TABLET 2 TIMES DAILY NEEDED. Patient did not bring medication list or bottles. Updated verbally with patient Allergies Medication Lipitor Hives; Rash; Recorded By: Fang Justin; 06/20/2021 2:36:54 PM Statins Hives;; Updated By: Pari Teague; 02/10/2022 8:53:32 AM Penicillins Recorded By: Fang Justin; 06/20/2021 2:36:54 PM Social History Problems Alcohol use (V49.89) (Z78.9) Never smoker No caffeine use No illicit drug use Vitals Vital Signs Recorded: 10Feb2022 08:39AM Heart Rate62, R Radial Tjzawhsx944, RUE, Sitting Fijjlbjpx44, RUE, Sitting Height5 ft 1 in Selqkp925 lb BMI Bwwanuqwec68.42 kg/m2 BSA Calculated1.72 Tobacco Useb) No PHQ-2 #1. Over the last 2 weeks have you felt down, depressed or hopeless? (If yes, answer PHQ-9 below)No PHQ-2 #2. Over the last 2 weeks have you felt little interest or pleasure in doing things? (If yes, answer PHQ-9 below)No (more content not included)... Normal [facility] Tobacco Screening.on 022 Adult depression screening assessment No [facility] [employer] DO Work Phone: Fall risk assessment b) One or more fall s in the last year [facility] [employer] DO Work Phone: Tobacco use status [facility] b) No M [facility] [employer] DO Work Phone: MG MAMM DX 3D RT CADon 02-05 MG MAMM DX 3D RT CAD Patient: RENUKA OWEN Exam Date: 02/05/2022 : 1950 Gender:F Ordering : DR AJAY SONG [facility] Admission #: [id number] Family : Order #: [id number] CLICK HERE TO VIEW EXAM RADIOLOGY REPORT PROCEDURE: MAMMOGRAM DIAGNOSTIC 3D RIGHT CAD COMPARISON: MG MAMM DX 3D RT CAD, 02/04/2021. INDICATIONS: Estrogen receptor negative neoplasm Calculator Name NCI Breast Cancer Risk Assessment Tool 5 Year Breast Cancer Risk n/a% Lifetime Breast Cancer Risk n/a% Personal Breast Cancer Yes, Left breast cancer 2012 Personal Ovarian Cancer No Treatments Left mastectomy, radiation, [id number] Family Cancers Father with testicular cancer at age 27. LOCATION: [facility] BREAST COMPOSITION: Scattered areas fibroglandular density. FINDINGS: DIAGNOSTIC CATEGORY 2--BENIGN FINDING. NO CHANGE FROM COMPARISON. This exam includes additional mammographic views for implant evaluation and shows no visible implant RIGHT BREAST: No significant suspicious finding. abnormality. Scattered benign-appearing calcifications are present. RECOMMENDATIONS: ROUTINE MAMMOGRAM AND CLINICAL EVALUATION IN 12 MONTHS. PLEASE NOTE: A NORMAL MAMMOGRAM DOES NOT EXCLUDE THE POSSIBILITY OF BREAST CANCER. A CLINICALLY SUSPICIOUS PALPABLE LUMP SHOULD BE BIOPSIED. Dictated by: Evelin Lott MD on 02/05/2022 at 14:46 Approved by: Evelin Lott MD on 02/05/2022 at 14:47 Normal [facility] MRI LSBUTTE WO CONon 01-10-20 MRI LSBUTTE WO CON EXAMINATION: MRI LSPINE WO CON HISTORY: Idiopathic osteoarthritis ; chronic lumbar pain increasing in severity over past 2 months COMPARISON: MRI lumbar spine 06/10/2021 TECHNIQUE: A variety of imaging planes and parameters were utilized for visualization of suspected pathology. FINDINGS: For the purposes of numbering, sagittal T2 image # 9 extends from the T11 vertebral body superiorly to the S3 level inferiorly. PARASPINAL AREA: Normal with no visible mass. BONES: Mild grade 1 retrolisthesis of L1 on 2, L2 on 3. Mild grade 1 anterior listhesis of L4 on 5. CORD/CAUDA EQUINA: Normal caliber, contour, and signal intensity. DISC LEVELS: 12-L1: Early degenerative disc disease is present without focal protrusion or neural impingement. L1-L2: Moderate diffuse disc bulging eccentric into right paracentral and foraminal region causing mild/moderate right foramen narrowing and mild central canal narrowing. No appreciable nerve root impingement. Posterior disc-osteophyte complex and marked disc space narrowing on right, mild on left. Mild degenerative facet arthropathy bilaterally. L2-L3: Mild central canal narrowing. Moderate right, mild left foramen narrowing. Mild diffuse disc bulging with mild disc height reduction. Mild degenerative facet arthropathy bilaterally. L3-L4: Moderate central canal and bilateral foramen narrowing. Mild diffuse disc bulging without disc at reduction. Moderate degenerative facet arthropathy bilaterally. L4-L5: Mild central canal narrowing. Marked right, moderate left foramen narrowing. Moderate diffuse disc bulging with broad-based right paracentral disc protrusion. Mild disc at reduction. Moderate-marked bilateral degenerative facet arthropathy. L5-S1: Mild central canal narrowing. Marked left, moderate right foramen narrowing. Moderate diffuse disc bulging with moderate disc height reduction. Marked degenerative facet arthropathy bilaterally. IMPRESSION: 1. Multilevel central canal and foraminal narrowing secondary to degenerative disc disease and degenerative facet arthropathy, stable to slightly progressed. Electronically authenticated by: TAMY HOLM Date: 2022-01-09 14:16 Normal [facility] COVID-19 Positive/NegativeOr dered By: Devin Moreau on 10-06-2021 SARS-CoV-2 (COVID-19) N gene JANET+probe Ql (Resp) Negative Negative [facility] Comment on above: Testing for SARS-CoV -2 by RT-PCR This test was developed and its performance characteristics determined by [employer] and validated at the [facility]. This test has not been FDA cleared or approved. This test has been authorized by FDA under an Emergency Use Authorization (EUA). This test has been validated in accordance with the FDA's Guidance Document (Policy for Diagnostics Testing in Laboratories Certified to Perform High Complexity Testing under CLIA prior to Emergency Use Authorization for Coronavirus Disease-2019 during the Public Health Emergency) issued on August 03, 2019. This test is only authorized for the duration of time the declaration that circumstances exist justifying the authorization of the emergency use of in vitro diagnostic tests for detection of SARS-CoV-2 virus and/or diagnosis of COVID-19 infection under section 564(b)(1) of the Act, 21 U.S.C. 360bbb-3(b)(1), unless the authorization is terminated or revoked sooner. Basophils Auto (Bld) [#/Vol] Ordered By: Devin Moreau on 09-24-2021 Basophils (Bld) [#/Vol] 0.1 10*3/uL 0.0-0.2 [facility] Basophils/100 WBC Auto (Bld) Ordered By: Devin Moreau on 09-24-2021 Basophils/100 WBC (Bld) 1.2 % [facility] Blood hemoglobin measurement (mass/volume)Ordered By: Devin Moreau on 09-24-2021 Hemoglobin (Bld) [Mass/Vol] 12.9 g/dL 11.8-15.4 [facility] Blood leukocytes automated c ount (number/volume)Ordered By: Devin Moreau on 09-24-2021 WBC (Bld) [#/Vol] 5.9 10*3/uL 4.5-11.0 [facility] Creatinine and Glomerular fi ltration rate.predicted panel (S/P/Bld)Ordered By: Devin Moreau on 09-24-2021 Creatinine [Mass/Vol] 0.80 mg/dL 0.44-1.03 [facility] Eosinophils Auto (Bld) [#/Vo l]Ordered By: Devin Moreau on 09-24-2021 Eosinophils (Bld) [#/Vol] 0.2 10*3/uL 0.0-0.45 [facility] Eosinophils/100 WBC Auto (Bl d)Ordered By: Devin Moreau on 09-24-2021 Eosinophils/100 WBC (Bld) 2.6 % [facility] Erythrocyte distribution wid th Auto (RBC) [Ratio]Ordered By: Devin Moreau on 09-24-2021 Erythrocyte distribution width (RBC) [Ratio] 15.8 % 11.9-15.3 [facility] Estimated glomerular filtrat ion rate (GFR) non- AmericanOrdered By: Devin Moreau on 09-24-2021 GFR/1.73 sq M.predicted among non-blacks MDRD (S/P/Bld) [Vol rate/Area] > 60 mL/Min [facility] Hematocrit Auto (Bld) [Volum e fraction]Ordered By: Devin Moreau on 09-24-2021 Hematocrit (Bld) [Volume fraction] 39.6 % 34.0-46.4 [facility] Laboratory - Hematology and Cell countsOrdered By: Devin Moreau on 09-24-2021 Nucleated RBC/100 WBC (Bld) [Ratio] 0.0 % 0-0.5 [facility] Lymphocytes Auto (Bld) [#/Vo l]Ordered By: Devin Moreau on 09-24-2021 Lymphocytes (Bld) [#/Vol] 1.1 10*3/uL 1.00-4.8 [facility] Lymphocytes/100 WBC Auto (Bl d)Ordered By: Devin Moreau on 09-24-2021 Lymphocytes/100 WBC (Bld) 18.2 % [facility] MCH Auto (RBC) [Entitic mass ]Ordered By: Devin Moreau on 09-24-2021 MCH (RBC) [Entitic mass] 27.0 pg 24.7-34.3 [facility] MCHC Auto (RBC) [Mass/Vol]Or dered By: Devin Moreau on 09-24-2021 MCHC (RBC) [Mass/Vol] 32.6 g/dL 32.0-35.0 [facility] MCV Auto (RBC) [Entitic vol] Ordered By: Devin Moreau on 09-24-2021 MCV (RBC) [Entitic vol] 82.7 fL 80-100 [facility] Monocytes Auto (Bld) [#/Vol] Ordered By: Devin Moreau on 09-24-2021 Monocytes (Bld) [#/Vol] 0.7 10*3/uL 0.0-0.8 [facility] Monocytes/100 WBC Auto (Bld) Ordered By: Devin Moreau on 09-24-2021 Monocytes/100 WBC (Bld) 11.4 % [facility] Neutrophils Auto (Bld) [#/Vo l]Ordered By: Devin Moreau on 09-24-2021 Neutrophils (Bld) [#/Vol] 3.9 10*3/uL 1.8-7.7 [facility] Neutrophils/100 WBC Auto (Bl d)Ordered By: Devin Moreau on 09-24-2021 Neutrophils/100 WBC (Bld) 66.6 % [facility] No Panel InformationOrdered By: Devin Moreau on 09-24-2021 Estimated GFR () > 60 mL/Min [facility] Comment on above: GFR estimated refere nce range: According to KDOQI guidelines, <60 ml/min/1.73m2 is sufficient to diagnose a patient with chronic kidney disease. Pharmacy Creatinine Clearance (Chem N/A [facility] Platelet mean volume Auto (B ld) [Entitic vol]Ordered By: Devin Moreau on 09-24-2021 Platelet mean volume (Bld) [Entitic vol] 7.6 fL 6.3-10.7 [facility] Platelets Auto (Bld) [#/Vol] Ordered By: Devin Moreau on 09-24-2021 Platelets (Bld) [#/Vol] 296 10*3/uL 150-450 [facility] RBC Auto (Bld) [#/Vol]Ordere d By: Devin Moreau on 09-24-2021 RBC (Bld) [#/Vol] 4.79 10*6/uL 3.60-5.00 [facility] Serum or plasma calcium evan urement (mass/volume)Ordered By: Devin Moreau on 09-24-2021 Calcium [Mass/Vol] 8.7 mg/dL 8.2-10.2 [facility] Serum or plasma chloride kristy surement (moles/volume)Ordered By: Devin Moreau on 09-24-2021 Chloride [Moles/Vol] 100 mmol/L 95-114 [facility] Serum or plasma glucose evan urement (mass/volume)Ordered By: Devin Moreau on 09-24-2021 Glucose [Mass/Vol] 90 mg/dL 70-100 [facility] Comment on above: ADA recommended refe rence range Random Glucose Reference Range is dependent on time and content of last meal. Glucose of more than 200 mg/dL in a nonstressed, ambulatory subject supports the diagnosis of Diabetes Mellitus. Serum or plasma potassium me asurement (moles/volume)Ordered By: Devin Moreau on 09-24-2021 Potassium [Moles/Vol] 4.1 mmol/L 3.5-5.1 [facility] Serum or plasma sodium measu rement (moles/volume)Ordered By: Devin Moreau on 09-24-2021 Sodium [Moles/Vol] 136 mmol/L 136-146 [facility] Serum or plasma total carbon dioxide measurement (moles/volume)Ordered By: Devin Moreau on 09-24-2021 CO2 [Moles/Vol] 25.2 mmol/L 22.0-30.0 [facility] Serum or plasma urea nitroge n measurement (mass/volume)Ordered By: Devin Moreau on 09-24-2021 Urea nitrogen [Mass/Vol] 20 mg/dL 01-23 [facility] Basic Metabolic Panlon 06-20 Anion gap [Moles/Vol] 16 mmol/L Normal 01-18 [facility] Comment on above: Performed By: #### B CARL, CBCDIF ####[place] [phone] Calcium [Mass/Vol] 9.3 mg/dL Normal 8.5-10.5 [facility] Comment on above: Performed By: #### B CARL, CBCDIF ####[phone] Chloride [Moles/Vol] 101 mmol/L Normal 98-110 [facility] Comment on above: Performed By: #### B CARL, CBCDIF ####[place] [phone] CO2 [Moles/Vol] 22 mmol/L Low [facility] Comment on above: Performed By: #### B CARL, CBCDIF ####[phone] Creatinine [Mass/Vol] 0.84 mg/dL Normal 0.70-1.40 [facility] Comment on above: Performed By: #### B CARL, CBCDIF ####[place] [phone] eGFR- Amer. >60 Normal >60 [facility] Comment on above: Performed By: #### B CARL, CBCDIF ####[place] [phone] GFR/1.73 sq M predicted among non-blacks MDRD (S/P/Bld) [Vol rate/Area] mL/min/{1.73_m2} Normal >60 [facility] Comment on above: Performed By: #### B CARL, CBCDIF ####[place] [phone] Glucose [Mass/Vol] 115 mg/dL High 65-100 [facility] Comment on above: Performed By: #### B CARL, CBCDIF ####[place] [phone] Potassium [Moles/Vol] 3.6 mmol/L Normal 3.5-5.0 [facility] Comment on above: Performed By: #### B CARL, CBCDIF ####[phone] Sodium [Moles/Vol] 139 mmol/L Normal 132-148 [facility] Comment on above: Performed By: #### B CARL, CBCDIF ####[phone] Urea nitrogen [Mass/Vol] 16 mg/dL Normal 8-25 [facility] Comment on above: Performed By: #### B CARL, CBCDIF ####[place] [phone] CBC and Differentialon 06-20 Abs Baso <0.03 Normal <0.11 [facility] Comment on above: Performed By: #### B CARL, CBCDIF ####[place] [phone] Abs [place] 0.48 k/uL Normal <0.87 [facility] Comment on above: Performed By: #### B CARL, CBCDIF ####[place] [phone] Abs Neut 7.17 k/uL Normal 1.45-7.50 [facility] Comment on above: Performed By: #### B CARL, CBCDIF ####[place] [phone] Absolute nRBC <0.01 Normal <0.01 [facility] Comment on above: Performed By: #### B CARL, CBCDIF ####[place] [phone] Basophils/100 WBC (Bld) 0.1 % Normal [facility] Comment on above: Performed By: #### B MP, CBCDIF ####[place] [phone] DTYPE Auto Diff Normal [facility] Comment on above: Performed By: #### B MP, CBCDIF ####[place] [phone] Eosinophils (Bld) [#/Vol] 10*3/uL Normal <0.46 [facility] Comment on above: Performed By: #### B CARL, CBCDIF ####[place] [phone] Eosinophils/100 WBC (Bld) 0.0 % Normal [facility] Comment on above: Performed By: #### B MP, CBCDIF ####[address] Erythrocyte distribution width (RBC) [Ratio] 13.9 % Normal 11.5-15.0 [facility] Comment on above: Performed By: #### B MP, CBCDIF ####[address] Hematocrit (Bld) [Volume fraction] 37.7 % Normal 36.0-46.0 [facility] Comment on above: Performed By: #### B MP, CBCDIF ####[address] Hemoglobin (Bld) [Mass/Vol] 12.4 g/dL Normal 11.5-15.5 [facility] Comment on above: Performed By: #### B MP, CBCDIF ####[place] [phone] Lymphocytes (Bld) [#/Vol] 0.98 10*3/uL Low 1.00-4.00 [facility] Comment on above: Performed By: #### B MP, CBCDIF ####[place] [phone] Lymphocytes/100 WBC (Bld) 11.3 % Normal [facility] Comment on above: Performed By: #### B MP, CBCDIF ####[place] [phone] MCH (RBC) [Entitic mass] 27.3 pG Normal 26.0-34.0 [facility] Comment on above: Performed By: #### B MP, CBCDIF ####[place] [phone] MCHC (RBC) [Mass/Vol] 32.9 g/dL Normal 30.5-36.0 [facility] Comment on above: Performed By: #### B MP, CBCDIF ####[place] [phone] MCV (RBC) [Entitic vol] 82.9 fL Normal 80.0-100.0 [facility] Comment on above: Performed By: #### B MP, CBCDIF ####[place] [phone] Monocytes/100 WBC (Bld) 5.6 % Normal [facility] Comment on above: Performed By: #### B MP, CBCDIF ####[place] [phone] Neutrophils/100 WBC (Bld) 83.0 % Normal [facility] Comment on above: Performed By: #### B MP, CBCDIF ####[place] [phone] NRBCs 0.0 /100 WBC Normal 0 [facility] Comment on above: Performed By: #### B MP, CBCDIF ####[place] [phone] Platelet mean volume (Bld) [Entitic vol] 10.3 fL Normal 9.0-12.7 [facility] Comment on above: Performed By: #### B MP, CBCDIF ####[facility] [place], [place] [phone] Platelets (Bld) [#/Vol] 271 10*3/uL Normal 150-400 [facility] Comment on above: Performed By: #### B MP, CBCDIF ####[place] [id number] [place], [place] [phone] RBC (Bld) [#/Vol] 4.55 10*6/uL Normal 3.90-5.20 [facility] Comment on above: Performed By: #### B MP, CBCDIF ####[place] [id number] [place], [place] [phone] WBC (Bld) [#/Vol] 8.64 10*3/uL Normal 3.70-11.00 [facility] Comment on above: Performed By: #### B MP, CBCDIF ####[place] [id number] [place], [place] [phone] NURSING PROGon 06-20-2020 NURSING PROG HNO ID: [id number] Author: Janelle (Rn) JAYA Cast Service: ? Author Type: Registered Nurse Type: Nursing Progress Note Filed: 06/20/2020 12:33 PM Note Text: Nursing Progress Note Patient Name: Renuka Owen Patient Location: [place] [address] [address] Daily Note: 0800: Patient awake in bed AANDO x3. Lungs are clear and on RA. Abdomen is soft bowel sounds present. Lungs are clear and on RA. Pulses are palpable and strong. Patient denies any new onset of numbness and tingling faby. Extremities. States n/t at baseline. Denies any lightheadedness or dizziness. Surgical incision on coccyx intact, serosang drainage on ABD. Denies any NANDV a this time. 1050: Sandhya Geller at bedside to discuss plan of care. Plan for discharge this afternoon. 1230: IVs removed, discharge teaching completed. No further questions at this time. This note was completed by: Janelle Cast RN [facility] PROGRESSon 06-20-2020 PROGRESS HNO ID: [id number] Author: Vasyl Castillo Service: Colorectal Author Type: Resident Type: Progress Notes Filed: 06/20/2020 9:13 AM Note Text: . GENERAL SURGERY PROGRESS NOTE NAME: Renuka Owen 06/20/2020 6:44 AM Assessment and Plan: Renuka Owen is a 69 year old female, who was admitted on 06/19/2020, now POD#1 s/p EXCISION TUMOR PRESACRAL. Recovering appropriately. 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 Pain: controlled. No other complaints. Physical Exam: BP 124/59 Pulse 73 Temp 36.7 ?C (98.1 ?F) (Oral) Resp 16 Ht 157.5 cm (5' 2 ) Wt 74.8 kg (165 lb) SpO2 93% BMI 30.18 kg/m? GENERAL/NEURO: Awake, Alert, NAD HEENT: Normocephalic, Atraumatic CHEST: Unlabored breathing ABDOMEN: Soft, Non-tender, Non-Distended Incision c/d/i EXTREMITIES: warm, well perfused Labs: CBC, Coags, BMP, Mg, Phos Recent Labs 06/20/20 0540 WBC 8.64 HB 12.4 HCT 37.7 PLT 271 Liver Function, Amylase, AND Lipase Intake and Output: Date 06/19/20 07 - 06/20/20 0659 06/20/20 07 - 06/21/20 0659 Shift 4907-3783 5055-7948 2910-8810 24 Hour Total 3843-9615 8371-8143 2214-2396 24 Hour Total INTAKE PO 300 300 600 PO 300 300 600 IV 1118.5 594 1712.5 Volume (mL) 13.5 13.5 Volume (mL) (lactated ringers infusion) 1000 1000 Volume (mL) (lactated ringers infusion) 594 594 Volume (mL) (metroNIDAZOLE iv piggyback 500 mg in NaCl (iso-osmotic) 100 mL (FLAGYL)) 100 100 Volume (mL) (rocuronium injection) 5 5 Shift Total 1418.5 894 2312.5 OUTPUT Urine 150 300 450 Void (ml) 100 300 400 OR Urine Output 50 50 # of BMs Number of BMs 0 x 0 x Blood 10 10 Estimated Blood loss 10 10 Shift Total 160 300 460 Weight (kg) 74.8 74.8 74.8 74.8 74.8 74.8 74.8 Current Medications: Current Facility-Administered Medications Medication Dose Route Frequency - carvedilol 6.25 mg tab(s) (COREG) 6.25 mg ORAL BID w MEALS - pantoprazole DR 20 mg tab(s) (PROTONIX) 20 mg ORAL DAILY - baclofen 20 mg (LIORESAL) 20 mg ORAL AT BEDTIME - latanoprost 0.005 % 1 Drop (XALATAN) 1 Drop BOTH EYES DAILY - gabapentin 300 mg cap(s) (NEURONTIN) 300 mg ORAL DAILY - gabapentin 600 mg cap(s) (NEURONTIN) 600 mg ORAL AT BEDTIME - enoxaparin 40 mg injection (LOVENOX) 40 mg SUBCUTANEOUS DAILY - ondansetron (PF) 4 mg injection (ZOFRAN) 4 mg INTRAVENOUS q 6 H PRN - acetaminophen 1,000 mg tab(s) (TYLENOL) 1,000 mg ORAL q 6 HR - oxyCODONE IR 5-10 mg tab(s) (ROXICODONE) 5-10 mg ORAL q 4 H PRN Prior to Admission Medications: baclofen (LIORESAL) 20 mg tablet, Take 1 tablet by mouth daily at bedtime. hydroCHLOROthiazide (HYDRODIURIL, ESIDRIX) 25 mg tablet, Take 25 mg by mouth once daily. latanoprost (XALATAN) 0.005 % ophthalmic solution, INSTILL 1 DROP INTO BOTH EYES EVERY DAY DIRECTED gabapentin (NEURONTIN) 300 mg capsule, TAKE 1 CAPSULE IN MORNING AND AFTERNOON AND 2 CAPSULES AT BEDTIME omeprazole (PRILOSEC) 20 mg capsule, Take 20 mg by mouth once daily. carvedilol (COREG) 6.25 mg tablet, Take 6.25 mg by mouth twice daily with meals. fluticasone (FLONASE) 50 mcg/actuation nasal spray, 2 Sprays once daily. traMADol (ULTRAM) 50 mg tablet, Take 1 tablet by mouth every 4 hours as needed for Pain. Take 1-2 tabs Q6H prn iv contrast (will be provided with radiology test), MRI Pelvis Inject, intravenously, once for 1 dose. No IV access, insert saline lock prior to the beginning of sedation, infusion, injection of imaging exam. Discontinue saline lock post exam. If Pt has a central line or IVAD, may access for administration according to line specific nursing protocol. Once exam is complete flush line and de-access according to line specific nursing protocol in the MR contrast administration guidelines link. [facility] PROGRESS HNO ID: [id number] Author: Anahi Walton Service: General Surgery Author Type: Resident Type: Progress Notes Filed: 06/19/2020 11:09 PM Note Text: POST OPERATIVE CHECK Patient Name: Renuka Owen SERVICE DATE: 06/19/2020 PRIMARY SERVICE: Colorectal Surgery SUBJECTIVE: The patient is doing well in the immediate postoperative period. Resting comfortably in bed. Afebrile, VSS, HDS. Pt ambulating: UOP adequate. Tolerating PO intake without nausea Denies N/V. Denies SOB or CP. Pt complaining from acid reflux - Protonix ordered OBJECTIVE Vitals: Patient Vitals for the past 24 hrs: BP Temp Temp src Pulse Resp SpO2 Height Weight 06/19/202119 ? 157.5 cm (5' 2 ) 74.8 kg (165 lb) 06/19/202046 141/72 36.5 ?C (97.7 ?F) Oral 81 16 96 % ? ? 06/19/201944 128/59 ? ? (!) 58 16 100 % ? ? 06/19/201929 136/99 ? ? 75 14 100 % ? ? 06/19/201914 105/89 ? ? 80 14 100 % ? ? 06/19/20 1900 134/82 ? ? 67 10 100 % ? ? 06/19/20 1845 148/69 ? ? 71 17 98 % ? ? 06/19/20 1830 149/79 ? ? 73 12 99 % ? ? 06/19/20 1815 139/78 ? ? 72 12 99 % ? ? 06/19/20 1800 145/71 ? ? 68 18 99 % ? ? 06/19/20 1745 150/69 ? ? 71 22 99 % ? ? 06/19/20 1730 145/60 ? ? 69 15 100 % ? ? 06/19/20 1715 144/71 ? ? 63 10 100 % ? ? 06/19/20 1700 145/82 ? ? 64 11 100 % ? ? 06/19/20 1645 130/78 ? ? 65 11 100 % ? ? 06/19/20 1630 133/74 ? ? 74 10 95 % ? ? 06/19/20 1615 (!) 125/49 36.4 ?C (97.5 ?F) Temporal 73 13 98 % ? ? 06/19/20 1213 137/74 37.1 ?C (98.8 ?F) Temporal Art 87 16 99 % ? ? BP 141/72 Pulse 81 Temp 36.5 ?C (97.7 ?F) (Oral) Resp 16 Ht 157.5 cm (5' 2 ) Wt 74.8 kg (165 lb) SpO2 96% BMI 30.18 kg/m? PHYSICAL EXAM: General: no distress, laying comfortably in bed, alert and oriented Cardiac: regular rate and rhythm Pulmonary: non-labored breathing on room air Abdomen: soft, non-distended, non tender Incision(s): clean, dry and intact, minimal strike through on dressing Extremities: warm and well perfused, no lower extremity edema. Pulses palpable. ASSESSMENT AND PLAN: Mr./Ms. Owen is a 69 year old female POD 0 s/p Presacral tumor, resected with en bloc coccygectomy. She is doing well with minimal complaints Plan: - Continue pain control w/ multimodal pain regimen - Pt hemodynamically stable. Continue to monitor. - Clinical exam appropriate for immediate post-op period - Continue routine post-operative care Anahi Walton MD General Surgery PGY1 [facility] ANES POSTPROC EVALon 021 ANES POSTPROC EVAL HNO ID: [id number] Author: Tj Hill Service: Anesthesiology Author Type: Anesthesiologist Type: Anesthesia Postprocedure Evaluation Filed: 06/19/2020 5:07 PM Note Text: POST ANESTHESIA EVALUATION NOTE : 1950 Procedure Summary Date: 06/19/20 Room / Location: OR12 / [facility] OR Anesthesia Start: 1415 Anesthesia Stop: Procedures: EXCISION TUMOR PRESACRAL [9391] (N/A Coccyx) COCCYGECTOMY (N/A Coccyx) Diagnosis: Presacral mass (Presacral mass [R19.09]) Surgeons: Saman Huber Responsible Provider: Tj Hill Anesthesia Type: general ASA Status: 3 Anesthesia Type: general Last vitals Vitals Value Taken Time BP 145/82 06/19/20 1700 Temp 36.4 ?C (97.5 ?F) 06/19/20 1615 Pulse 62 06/19/20 1706 Resp 12 06/19/20 1706 SpO2 100 % 06/19/20 1706 Vitals shown include unvalidated device data. Post Anesthesia Patient Status Patient Evaluation: PACU. PACU/ICU Patient Condition: stable. Anticipated Disposition: phase 2 then home. Neurological Status: aware and responsive. Pulmonary Status: breathing comfortably on room air Airway Control: returned to baseline unsupported. Cardiovascular Status: stable. Pain Management: clinically adequate - multimodal analgesia pain management approach Postoperative Hydration: acceptable. Intraoperative Events: no significant anesthesia events Post Operative Nausea/Vomiting Status: no significant post operative nausea or vomiting Anesthetic Observations: no significant anesthetic observations Recommendation: continue current plan of care. SIGNATURE: Tj Hill MD PATIENT NAME: Renuka Owen DATE: June 19, 2020 TIME: 5:06 PM CSN: [id number] [facility] ANES PRE-OPon 06-19-2020 ANES PRE-OP HNO ID: [id number] Author: Ricardo Arvizu Service: Anesthesiology Author Type: Anesthesiologist Type: Anesthesia Preprocedure Evaluation Filed: 06/19/2020 1:37 PM Note Text: ANESTHESIOLOGY DAY OF SURGERY NOTE : 1950 Procedure(s) (LRB): EXCISION TUMOR PRESACRAL [9391] (N/A) Surgeon(s): Saman Huber Estimated body mass index is 30.18 kg/m? as calculated from the following: Height as of 06/03/20: 157.5 cm (5' 2 ). Weight as of 06/03/20: 74.8 kg (165 lb). Most recent hematocrit and potassium results: Hematocrit 39.8 06/05/2020 Potassium 4.8 06/05/2020 Relevant Problems CARDIO (+) Bundle branch block, left (+) Hypertension GI (+) GERD (gastroesophageal reflux disease) -RENAL (+) CKD (chronic kidney disease) NEURO-PSYCH (+) History of breast cancer I - PHYSICAL EVALUATION AIRWAY Patient intubated: No. Mallampati: II. TM distance: >3 FB. Neck ROM: full ROM without neurological symptoms. Mouth opening: adequate. Short neck: no. Thick neck: no DENTAL Dental findings: teeth intact. Additional exam findings: no II - ANESTHESIA PLAN ASA Score: 3 Anesthetic Plan: general Airway type: ETT Anesthetic plan additional comments: Symptoms of Sleep Apnea: Denies Previous Anesthesia: Nausea and/or vomiting Family history of anesthetic problems: None Functional Capacity Assessment:Denies chest pain and SOB with exertion. Denies change in functional capacity. History of GERD: Yes- Well controlled with no positional symptoms Most recent lab results: Hemoglobin 12.7 06/05/2020 Hematocrit 39.8 06/05/2020 Potassium 4.8 06/05/2020 Platelet Count 297 06/05/2020 PT Sec 10.4 04/06/2012 APTT 28.9 04/06/2012 PT INR 0.9 04/06/2012 Creatinine, Whole Blood (iSTAT) 0.85 06/05/2020 . The patient is not a current smoker. NPO Status: adequate Monitoring plan: Standard ASA. Postoperative analgesic plan: multimodal analgesia. Anesthetic Risks, Benefits, Alternatives, Personnel Discussed. Consent obtained from: patient.Patient / Surrogate agrees to blood products: yes DNR status not reviewed with patient and/or family prior to surgery. Significant changes in the patient condition since the History and Physical, not otherwise documented in primary service progress note: no. Potential Anesthesia issues that may suggest increased risk of complications or contraindication to planned procedure: none. Vitals Value Taken Time BP 137/74 06/19/20 1213 Pulse 87 06/19/20 1213 Resp 16 06/19/20 1213 Temp 37.1 ?C (98.8 ?F) 06/19/20 1213 SpO2 99 % 06/19/20 1213 Facility-Administered Medications as of 06/19/2020 Medication Dose Route Frequency - heparin 5,000 Units injection 5,000 Units SUBCUTANEOUS Pre-Op Once - lidocaine 10 mg/mL (1 %) 1-2 mg injection (XYLOCAINE) 0.1-0.2 mL INTRADERMAL PRN - lactated ringers infusion 5-30 mL/hr INTRAVENOUS CONTINUOUS - ciprofloxacin iv piggyback 400 mg in D5W 200 mL (CIPRO) 400 mg INTRAVENOUS Pre-Op Once - metroNIDAZOLE iv piggyback 500 mg in NaCl (iso-osmotic) 100 mL (FLAGYL) 500 mg INTRAVENOUS Pre-Op Once - [COMPLETED] acetaminophen 1,000 mg tab(s) (TYLENOL) 1,000 mg ORAL ONCE Outpatient Medications as of 06/19/2020 Medication Sig - hydroCHLOROthiazide (HYDRODIURIL, ESIDRIX) 25 mg tablet Take 25 mg by mouth once daily. - latanoprost (XALATAN) 0.005 % ophthalmic solution INSTILL 1 DROP INTO BOTH EYES EVERY DAY DIRECTED - gabapentin (NEURONTIN) 300 mg capsule TAKE 1 CAPSULE IN MORNING AND AFTERNOON AND 2 CAPSULES AT BEDTIME - omeprazole (PRILOSEC) 20 mg capsule Take 20 mg by mouth once daily. - carvedilol (COREG) 6.25 mg tablet Take 6.25 mg by mouth twice daily with meals. - fluticasone (FLONASE) 50 mcg/actuation nasal spray 2 Sprays once daily. - traMADol (ULTRAM) 50 mg tablet Take 1 tablet by mouth every 4 hours as needed for Pain. Take 1-2 tabs Q6H prn - iv contrast (will be provided with radiology test) MRI Pelvis Inject, intravenously, once for 1 dose. No IV access, insert saline lock prior to the beginning of sedation, infusion, injection of imaging exam. Discontinue saline lock post exam. If Pt has a central line or IVAD, may access for administration according to line specific nursing protocol. Once exam is complete flush line and de-access according to line specific nursing protocol in the MR contrast administration guidelines link. I have interviewed and examined the patient. I have reviewed the medical record and/or the pre-anesthesia evaluation, pertinent labs, and test results. This contains updated information obtained within 48 hours of Surgery/Procedure. SIGNATURE: Ricardo Arvizu MD PATIENT NAME: Renuka Owen DATE: June 19, 2020 TIME: 1:32 PM CSN: [id number] [facility] NURSING PROGon 06-19-2020 NURSING PROG HNO ID: [id number] Author: Willow JonesRn) JAYA Mon Service: ? Author Type: Registered Nurse Type: Nursing Progress Note Filed: 06/19/2020 9:48 PM Note Text: Nursing Progress Note Patient Name: Renuka Owen Patient Location: [place] [address] [address] Transfer Note: Patient transferred into room/unit PK322 in stable condition. Actions taken: No futher actions taken at this time. Will continue to monitor and check with patient. This note was completed by: Willow Mon RN [facility] NURSING PROG HNO ID: [id number] Author: Jody JonesRn) JAYA Hanna Service: Nursing Author Type: Registered Nurse Type: Nursing Progress Note Filed: 06/19/2020 11:55 AM Note Text: PATIENT EDUCATION TOPIC: PROCEDURE / SURGERY: Pre-op Teaching: Logistics Protocols PATIENT NAME: Renuka Owen PATIENT LOCATION: OR [place]/ OR POOL READINESS TO LEARN COGNITIVE ABILITY: Alert and oriented MOTIVATION TO LEARN: Eager Interested FAMILY SUPPORT: None - Unavailable/disintere sted INSTRUCTION PROVIDED TO: Patient PATIENT LEARNS BEST BY: Verbal Instruction FACTORS AFFECTING LEARNING: None PHYSICAL LIMITATIONS AFFECTING LEARNING: None LEARNING RESPONSE DIAGNOSIS: ADULT: Well Adult PATIENT/FAMILY RESPONSE: Verbalizes understanding of: PRE-OPERATIVE INSTRUCTIONS-Correct action to take to follow pre-operative instructions PRE-PROCEDURE INSTRUCTIONS-Correct action to take to follow pre-procedure instructions METHOD OF INSTRUCTION: Verbal instruction FOLLOW-UP PLAN: Complete - No need for follow-up INSTRUCTIONAL AIDS USED: NA SUPPLEMENTAL MATERIAL PROVIDED TO PATIENT: None REFERRAL (RECOMMENDATION): None Electronically Signed By: Jody Hanna RN Normal [facility] OPERATIVE NOon 06-19-2020 OPERATIVE NO HNO ID: [id number] Author: Saman Huber Service: Colorectal Author Type: Physician Type: Operative Report Filed: 06/21/2020 9:35 AM Note Text: [facility] - Operative Report RENUKA OWEN : 1950 AGE: 69. SEX: F PATIENT TYPE: I HOSP SVC: CORS LOCATION: [facility] ATTENDING PHYSICIAN: Saman Huber M.D. CSN NUMBER: [id number] DATE OF SURGERY/PROCEDURE: 06/19/2020 INCISION/PROCEDURE START TIME: 1446 hours. INCISION CLOSE/PROCEDURE END TIME: 1600 hours. 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 SURGEON: Saman Huber M.D. ELECTRICAL ENGINEER MEP: Dr. Krunal Meyer and [place] He. SURGERY/PROCEDURE: Excision of presacral tumor and coccygectomy. ANESTHESIA: General ESTIMATED BLOOD LOSS: 20 mL. FINDINGS: Presacral tumor was diagnosed preoperatively. This was taken en bloc with the coccyx as planned preoperative. INDICATION: The patient is a 69-year-old female, who recently underwent a CT of the abdomen and pelvis for upper abdominal pain and incidentally was found to have a presacral mass. After evaluating her and obtaining an MRI, confirmed this was a presacral cystic mass and we therefore recommended surgical excision. Risks of procedure were explained. She agreed to proceed. DESCRIPTION OF PROCEDURE: Patient was taken to the operating room, placed on OR table in prone lars-knife position. She was placed under general anesthesia. Her perineum was prepped and draped in normal sterile fashion. The buttock was gently taped apart. We began with a vertical incision just right of the midline through the gluteal skin, we gently dissected through the soft tissue until we came down on the presacral cystic mass. We gently dissected around the entirety of the mass and carried it up to the level of the coccyx. It was intimately attached to the tip of the coccyx and we therefore disconnected the coccyx from the sacrum to freely mobilize the coccyx and left it en bloc with the presacral tumor. At that point, we released the superior aspect of the mass and carried it down to the right anterior extension that we were aware of from the preoperative imaging. We continued to release it from the surrounding soft tissue. We identified the posterior rectum for which we the tumor gently off. The specimen was removed intact without the cystic cavity being disrupted and sent for Pathology. Once this was done, the cavity was irrigated and suctioned. We then performed an air leak test of the rectum. Saline was injected into the wound and then using Asepto, we insufflated the rectum with air and there were no bubbles or any evidence of rectal injury. We then used Betadine irrigation to irrigate out the wound. We then closed the wound to collapse the space using 2-0 Vicryl sutures to the deep layers. We then used 2-0 and 3-0 nylon vertical mattress sutures to close the skin. The wound was injected with 0.5% Marcaine with epinephrine. A dry sterile dressing was applied to the perineal wound. The patient awoken from anesthesia and taken to recovery room. Amando Hawkins:[id number] /[id number] Normal [facility] SURGICAL PATHOLOGYon 021 SURGICAL PATHOLOGY Specimen originated from [facility] Specimen #: [id number] Submitting Physician: SAMAN HUBER FINAL DIAGNOSIS Presacral tumor, en bloc coccygectomy - Epidermoid cyst. See comment. HAROLDO/SEFERINO/kelley 06/21/2020 COMMENT Immunohistochemical stains performed on block A4 show that the epithelial lining of the epidermoid cyst is positive for keratin AE1/AE3. Additionally, in the soft tissue adjacent to the tip of the coccyx, a glomus coccygeum is identified (normal anatomical structure found in this region). The glomus cells are positive for SMA (performed also on block A4). Laboratory Developed Test (LDT) Disclaimer: Positive and negative controls stain appropriately. Performance characteristics of immunohistochemical, immunofluorescent and chromogenic in-situ hybridization tests have been determined by [facility]'s [facility] Pathology and Laboratory Medicine [place] ([facility]) in a manner consistent with CLIA requirements. One or more of these tests have not been cleared or approved by the FDA. [facility] is regulated under CLIA as qualified to perform high-complexity testing. These tests are used for clinical purposes. They should not be regarded as investigational or for research. Demond Cope M.D. (Electronic Signature) ____ SPECIMEN SUBMITTED A: PRESACRAL TUMOR WITH EN BLOC COCCYGECTOMY CLINICAL DATA PRESACRAL MASS; EXCISION TUMOR PRESACRAL GROSS DESCRIPTION A. Received in formalin designated presacral tumor with en bloc coccygectomy is a lora-harvey smooth and cauterized nodule with attached bone that weighs 43 grams. The nodule measures 6.5 x 3.5 x 3.5 cm. The attached bone measures 2 x 1.5 x 1.5 cm. The outer surface of the nodule is inked black, and the bone resection margin is inked blue. The cut surfaces of the nodule are lora-harvey and markedly softened with focal fibrous areas. The nodule does not extend beyond the inked outer surface and is located 1 cm from the bone resection margin. International [employer] Manager sections are submitted as follows: A1-A3 nodule with inked outer surface; A4-A7 nodule with entire bone resection margin following light decalcification. Iban 06/20/2020 Gross examination performed at [facility], [address] [place] [address] Date of Report: 06/25/2020 Date of Procedure: 06/19/2020 Date of Receipt: 06/20/2020 Submitted by: SAMAN HUBER Location: [facility] Diagnostic interpretation performed at [facility] [address] [facility] [address]. [place] Number: [id number] [facility] CNPN Telephone (REFAIR) RENUKA OWEN ([id number]) 1950 F Date Time Provider Department 06/18/20 ТАТЬЯНА ZUNIGA During your visit today, we recorded the following information about you: Andrea Bright [facility] 06/18/2020 12:13 PM Signed IRB# [id number], Perioperative ISchemic Evaluation 3 (POISE-3), PI: Jeovanny Duque MD. [employer] Professor: Татьяна Zuniga MD, UMANG, FASA. Outcomes Research. Anesthesia [place]. This is a research study note. Patient assessments recorded here should not guide either clinical care or clinical decision-making. Patient contacted on behalf of [employer] (Anesthesia [place]) regarding eligibility for PeriOperative Ischemic Evaluation 3 - POISE 3 trial. Rationale for prophylactic TXA use for non-cardiac surgery and hypotension vs hypertension avoidance strategy were discussed at length along with the known risks, potential benefits, and alternatives to research participation. Ms. Owen would like to think about participating in the study, she is open to receive study materials in her e-mail. I have confirmed her e-mail address and I have sent the updated copy of the informed consent for her review. Andrea Cardoso MD Research Fellow Anesthesiology [place] Outcomes Research Department [facility] Allergies As of Date: 06/18/2020 Noted Allergy Reaction PENICILLINS 03/05/2011 4 - Hives LIPITOR (ATORVASTATIN CALCIUM) 03/05/2011 9 - Itching Date Reviewed: 06/03/2020 Reviewed by: Kathy Anglin ([facility]) ANA Lopez - Fully Assessed Reason for Visit: Research [[id number]] Prescriptions as of 06/18/2020 Sig: BACLOFEN 20 MG TABLET Take 1 tablet by mouth daily * HYDROCHLOROTHIAZIDE 25 MG TAB* Take 25 mg by mouth once luisa* IV CONTRAST (RADIOLOGY PROCED* MRI Pelvis Inject, intravenou* LATANOPROST 0.005 % EYE DROPS INSTILL 1 DROP INTO BOTH EYES* GABAPENTIN 300 MG CAPSULE TAKE 1 CAPSULE IN MORNING AND* OMEPRAZOLE 20 MG CAPSULE,HEATHER* Take 20 mg by mouth once luisa* CARVEDILOL 6.25 MG TABLET Take 6.25 mg by mouth twice d* FLUTICASONE PROPIONATE 50 MCG* 2 Sprays once daily. 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 Breast cancer [C50.919] 03/30/2012 Breast cancer, left breast [C50.912] Hypercholesteremia [E78.00] Hypertension [I10] More... Osteoarthritis [M19.90] Bundle branch block, left [I44.7] More... Mild depression [F32.0] S/P left mastectomy [Z90.12] History of breast cancer [Z85.3] 10/09/2014 GERD (gastroesophageal reflux disease) [K21.9] 06/03/2020 More... CKD (chronic kidney disease) [N18.9] 06/03/2020 More... Encounter Status:Closed by ELAINA [facility], ANDREA HOANG on 06/18/20 Normal [facility] Type and SCR (30D)on 021 ABO/RH(D) Positive Normal [facility] Comment on above: Performed By: #### T SCR30 ####[facility] [place], [place] [id number] HOSPon 05-17-2020 HOSP Patient:Claudia Owen MRN: Height:5' 2 [patient reported[(1.575 m) Weight:165 lb (74.844 kg) Outpatient Medications as of 06/19/20: baclofen (LIORESAL) 20 mg tablet hydroCHLOROthiazide (HYDRODIURIL, ESIDRIX) 25 mg tablet iv contrast (will be provided with radiology test) latanoprost (XALATAN) 0.005 % ophthalmic solution gabapentin (NEURONTIN) 300 mg capsule omeprazole (PRILOSEC) 20 mg capsule carvedilol (COREG) 6.25 mg tablet fluticasone (FLONASE) 50 mcg/actuation nasal spray traMADol (ULTRAM) 50 mg tablet Admission/Clinic Administered Medications as of 06/19/20: heparin 5,000 Units injection lidocaine 10 mg/mL (1 %) 1-2 mg injection (XYLOCAINE) lactated ringers infusion ciprofloxacin iv piggyback 400 mg in D5W 200 mL (CIPRO) metroNIDAZOLE iv piggyback 500 mg in NaCl (iso-osmotic) 100 mL (FLAGYL) scopolamine 1 mg over 3 days 1 Patch (TRANSDERM-SCOP) scopolamine - REMOVE PATCH scopolamine - VERIFY patch Problem List: 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, T45.1X5A] Breast cancer (HCC) [C50.919] Breast cancer, left breast (HCC) [C50.912] Hypercholesteremia [E78.00] Hypertension [I10] Osteoarthritis [M19.90] Bundle branch block, left [I44.7] 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 [employer] Professor: Татьяна Zuniga MD, UMANG, FASA. Outcomes Research. Anesthesia [place]. This is a research study note. Patient assessments recorded here should not guide either clinical care or clinical decision-making. Patient contacted on behalf of [employer] (Anesthesia [place]) regarding eligibility for PeriOperative Ischemic Evaluation 3 - POISE 3 trial. Rationale for prophylactic TXA use for non-cardiac surgery and hypotension vs hypertension avoidance strategy were discussed at length along with the known risks, potential benefits, and alternatives to research participation. Ms. Owen would like to think about participating in the study, she is open to receive study materials in her e-mail. I have confirmed her e-mail address and I have sent the updated copy of the informed consent for her review. Andrea Cardoso MD Research Fellow Anesthesiology [place] Outcomes Research Department [facility] Progress Notes ([facility]): Megan Batista RN, RN 05/31/2020 12:22 PM Signed Call placed to patient for pre op surgical discussion. She is aware of surgery date of 06/19 and has PACC and Covid 19 testing scheduled. All bowel prep reviewed with patient and sent via My Chart. Pt appreciative of the discussion and contact. Reviewed typical post op expectations and follow up in office. Normal [facility] ALLIED HEALTHon 05-15-2020 ALLIED HEALTH HNO ID: [id number] Author: Pierce Aguila (Tech) Service: Radiology Author Type: Jig Filler Type: Allied Health Filed: 05/15/2020 1:03 PM Note Text: Radiology Service Progress Note DATE OF SERVICE: May 15, 2020 TIME: 1:02 PM PATIENT IDENTITY VERIFICATION COMPLETED USING TWO (2) STANDARD IDENTIFIERS: Name and Date of confirmed by patient verbally. FALL SCREENING: Has the patient had 2 falls in the last year or 1 fall with injury or currently using an Ambulatory Assistive Device (Walker, Cane, Wheelchair, Crutches, etc.)? No PATIENT GENDER DATA: Female. status: : No status: NO. PATIENT RELEVANT IMPLANT DATA REVIEWED: Yes ALLERGIES: Reviewed and unchanged CONTRAST ALLERGY: NO. EXAM: MRI - CONTRAST TYPE: GROUP II PERIPHERAL IV DATA: Ambulatory: A peripheral IV was started in the Right antecubital site with a Angio cath: 24 gauge. RADIOLOGY DEPARTMENT: MR; Exam(s) Completed: Body: Rectal SIGNATURE: Pierce Aguila PATIENT NAME: Renuka Owen DATE: May 15, 2020 TIME: 1:02 PM Normal [facility] MRI RECTUM WO/W IVCONon 05-03 MRI RECTUM WO/W IVCON * * *Final Report* * * DATE OF EXAM: May 15 2020 1:16PM PHIL 0754 - MRI RECTUM WO/W IVCON / PROCEDURE REASON: Presacral mass * * * * Physician Interpretation * * * * MRI OF THE PELVIS WITHOUT AND WITH CONTRAST: RECTAL CANCER STAGING CLINICAL HISTORY: Presacral mass. No biopsy results. COMPARISON: Outside hospital CT abdomen pelvis 04/08/2020 TECHNIQUE: Magnet: Siemens 1.5 T Avanto scanner. Coil: Torso phased array Sequences / planes: T2: axial, sagittal and coronal High resolution T2: axial oblique STIR: axial T1 in and [id number]: axial HASTE: coronal large field of view T1 3-D GRE with and without contrast: axial, sagittal and coronal Diffusion weighted imaging with ADC mapping: axial Contrast: IV: 15 ml of Dotarem Rectal: 60 CC BRYCE LUBE ml of Other RESULT: Correspond to the abnormality on prior CT is a 5.3 x 3.1 x 3.6 cm (CC by AP by transverse) well-circumscribed mildly T2 hyperintense and mildly T1 hyperintense mass in the retrorectal/presacral space. The mass demonstrates no internal postcontrast enhancement and a thin peripheral rim of enhancement. Diffusion restriction is also associated with this mass. Inferior margin of the mass is located approximately 2.8 cm above the anal verge. Inferior margin of the mass terminates at the level of the anorectal junction. The mass results in mass effect upon the posterior right rectal wall and right levator muscle without invasion into either structure. No invasion into the internal anal sphincter. The mass also abuts the inferior tip of the coccyx but appears separate from the coccyx. No suspicious appearing mesorectal or extramesorectal lymph nodes. Colonic diverticulosis without acute diverticulitis. Trace pelvic free fluid. Urinary bladder is grossly unremarkable. No aggressive osseous lesions. IMPRESSION: 5.3 cm retrorectal mass with imaging characteristics favoring an epidermoid cyst although complex tailgut cyst or dermoid are also considerations. No suspicious appearing mesorectal or extramesorectal lymph nodes. Lab Aide: CARTER Transcribe Date/Time: Roberto 13 2021 1:45P Dictated by : BLAKE PARKER MD This examination was interpreted and the report reviewed and electronically signed by: BLAKE PARKER MD on May 15 2020 2:28PM EST [id number] Normal [facility] Physician Referralon 020 Physician Referral [id number]:127 Normal [facility] Physician Referralon 020 Physician Referral [id number] .[id number]:127 Normal [facility] Coding Summary.on 03-26-2020 Coding Summary. CODING DATE: 03/26/2020 FINAL [facility] STATUS: Home (Routine DC) PAYOR: Medicare APC DESCRIPTION 5522 Level 2 Imaging without Contrast ADMIT DX: REASON FOR VISIT DX: J32.4 Chronic pansinusitis FINAL DX: PRINCIPAL: J32.4 Chronic pansinusitis SECONDARY: J31.0 Chronic rhinitis J34.2 Deviated nasal septum PYMT PROC APC STAT DESCRIPTION DOCTOR NAME DATE NOTE: The code number assigned matches the documented diagnosis and / or procedure in the patient's chart. However, the narrative phrase printed from the coding software may appear abbreviated, or result in slightly different terminology. Coded By: Kathrin Abarca CphT Date Saved: 03/26/2020 09:[address] [facility] [address] Maxillofacial w/o Contras ton 03-25-2020 CT Maxillofacial w/o Contrast Exam Date/Time: 03/25/2020 11:02 EST Reason for Exam: J32.4 Chronic pansinusitis Report IMPRESSION:SMALL AMOUNT OF FLUID WITHIN THE LEFT MAXILLARY SINUS. MILD MUCOSAL THICKENING ETHMOID SINUSES. RHINITIS. NASAL SEPTUM DEVIATED TO THE RIGHT. CLINICAL HISTORY: J32.4 Chronic pansinusitis, sinusitis for a few months COMPARISONS: None available. TECHNIQUE: Axial images were initially obtained. Coronal and sagittal reformatted images were then obtained. FINDINGS:There is a small air-fluid level within the left maxillary sinus. There is mild mucosal thickening within the anterior ethmoid air cells bilaterally. Other paranasal sinuses are clear. The ostiomeatal units are patent. There is minimal fluid within mastoid air cells. Nasal septum is deviated to the right. There is hypertrophy of nasal turbinates, consistent with rhinitis. No osseous destruction. There are atherosclerotic calcifications in the carotid siphon arteries. All CT scans at this facility use dose modulation, iterative reconstruction, and/or weight based dosing when appropriate to reduce radiation dose to as low as reasonably achievable. FINAL REPORT Dictated: 03/25/2020 1:37 pm Ara Edge MD Signed (Electronic Signature): 03/25/2020 1:37 pm Signed by: Ara Edge MD Transcribed by: SHAKILA Technologist: ASHLEY [facility] Consent for Treatmenton 03-04 Consent for Treatment [id number]:127 [facility] Physician Orderon 03-01-2020 Physician Order [id number] .[id number]:127 [facility] CBCon 11-17-2017 Erythrocyte distribution width Auto Ratio (RBC) 14.9 % Normal 12.0-15.4 [facility] Comment on above: Performed By: #### 2 [id number] ####[facility] [address] [place] [address] Hematocrit Auto Volume Fraction (Bld) 39.6 % Normal 36.5-46.6 [facility] Comment on above: Performed By: #### 2 [id number] ####[facility] [address] [place] [address] Hemoglobin mass conc (Bld) 12.8 g/dL Normal 11.8-15.3 [facility] Comment on above: Performed By: #### 2 [id number] ####[facility] [address] [place] [address] MCH Auto Entitic mass (RBC) 27.8 pg Normal 27.5-33.0 [facility] Comment on above: Performed By: #### 2 [id number] ####[facility] [address] [place] [address] MCHC Auto mass conc (RBC) 32.3 g/dL Normal 30.1-35.0 [facility] Comment on above: Performed By: #### 2 [id number] ####[facility] [address] [facility] [place] [address] MCV Auto Entitic volume (RBC) 85.9 fL Normal 85.4-100.0 [facility] Comment on above: Performed By: #### 2 [id number] ####[facility] [address] [facility] [place] [address] NRBC Absolute 0.00 10*3/uL Normal [facility] Comment on above: Performed By: #### 2 [id number] ####[facility] [address] [facility] [place] [address] NRBC Automated 0.0 /100{WBCs} Normal [facility] Comment on above: Performed By: #### 2 [id number] ####[facility] [address] [place] [address] Platelet mean volume Auto Entitic volume (Bld) 10.9 fL Normal 9.9-12.1 [facility] Comment on above: Performed By: #### 2 [id number] ####[facility] [address] [place] [address] Platelets Auto #/vol (Bld) 176 10*3/uL Normal 155-404 [facility] Comment on above: Performed By: #### 2 [id number] ####[facility] [address] [facility] [place] [address] RBC Auto #/vol (Bld) 4.61 10*6/uL Normal 3.85-5.10 [facility] Healthcare Comment on above: Performed By: #### 2 [id number] ####[facility] [address] [facility] [place] [address] RDW SD 46.7 fL Normal 39.3-48.6 [facility] Healthcare Comment on above: Performed By: #### 2 [id number] ####[facility] [address] [facility] [place] [address] WBC Auto #/vol (Bld) 6.2 10*3/uL Normal 4.4-9.9 [facility] Comment on above: Performed By: #### 2 215012 ####[facility] [address] [place] [address] Creatinineon 11-17-2017 Creatinine mass conc 1.04 mg/dL Normal 0.50-1.05 [facility] Comment on above: Performed By: #### 1 [id number] ####[facility] [address] [place] [address] GFR/1.73 sq M.predicted MDRD vol rate/area 53 mL/min/{1.73_m2} Normal [facility] Comment on above: Result Comment: Inte rpretation for Chronic Kidney Disease:Stages 1&2 >60 Healthy or potential kidney damage.Mild decrease of GFR.Stage 3 30-59 Moderate decrease of GFR.Stage 4 15-29 Severe decrease of GFR.Stage 5 <15 Kidney failure or on dialysis. Performed By: #### 1 [id number] ####[facility] [address] [place] [address] Electrolyte Panelon 11-18-19 18 Anion gap 3 molar conc 12 mmol/L Normal 10-20 [facility] Comment on above: Performed By: #### 1 [id number] ####[facility] [address] [place] [address] Chloride molar conc 101 mmol/L Normal 98-107 [facility] Comment on above: Performed By: #### 1 [id number] ####[facility] [address] [place] [address] HCO3 molar conc (Bld) 30 mmol/L Normal 21-32 [facility] Comment on above: Performed By: #### 1 [id number] ####[facility] [address] [place] [address] Potassium molar conc 3.7 mmol/L Normal 3.5-5.1 [facility] Comment on above: Performed By: #### 1 [id number] ####[facility] [address] [place] [address] Sodium molar conc 139 mmol/L Normal 136-145 [facility] Comment on above: Performed By: #### 1 [id number] ####[facility] [address] [place] [address] Urea Nitrogenon 11-17-2017 Urea nitrogen mass conc 28 mg/dL High 6-23 [facility] Comment on above: Performed By: #### 1 [id number] ####[facility] [address] [place] [address] Vital Signs Date Time Vital Sign Value Performing Clinician Facility 03-08-2024 09:09-0500 Body height 154.9 cm Chuck Cope MD Work Phone: [facility] 03-08-2024 09:09-0500 Body mass index (BMI) [Ratio] 28.91 kg/m2 Chuck Cope MD Work Phone: [facility] 03-08-2024 09:09-0500 Body weight 69.4 kg Chuck Cope MD Work Phone: [facility] 03-08-2024 09:09-0500 Diastolic blood pressure 59 mm[Hg] Chuck Cope MD Work Phone: [facility] 03-08-2024 09:09-0500 Systolic blood pressure 97 mm[Hg] Chuck Cope MD Work Phone: [facility] 03-01-2024 11:04-0400 Body height 154.94 cm DO Mervin Ball Work Phone: [facility] 03-01-2024 11:04-0400 Body mass index (BMI) [Ratio] 28.8 kg/m2 DO Mervin Ball Work Phone: [facility] 03-01-2024 11:04-0400 Body weight 69.11 kg DO Mervin Ball Work Phone: [facility] 03-01-2024 11:04-0400 Diastolic blood pressure 65 mm[Hg] DO Mervin Ball Work Phone: [facility] 03-01-2024 11:04-0400 Heart rate 62 /min DO Mervin Ball Work Phone: [facility] 03-01-2024 11:04-0400 Respiratory rate 12 /min DO Mervin Ball Work Phone: [facility] 03-01-2024 11:04-0400 Systolic blood pressure 104 mm[Hg] DO Mervin Ball Work Phone: [facility] 02-08-2024 13:08-0400 Body height 154.94 cm DO Mervin Ball Work Phone: [facility] 02-08-2024 13:08-0400 Body mass index (BMI) [Ratio] 28.3 kg/m2 DO Mervin Ball Work Phone: [facility] 02-08-2024 13:08-0400 Body weight 68.03 kg DO Mervin Ball Work Phone: [facility] 12-21-2023 09:40-0400 Diastolic blood pressure 66 mm[Hg] DO Mervin Ball Work Phone: [facility] 12-21-2023 09:40-0400 Heart rate 55 /min DO Mervin Ball Work Phone: [facility] 12-21-2023 09:40-0400 SaO2% (BldA) [Mass fraction] 99 % DO Mervin Ball Work Phone: [facility] 12-21-2023 09:40-0400 Systolic blood pressure 113 mm[Hg] DO Mervin Ball Work Phone: [facility] 12-21-2023 09:05-0400 Inhaled oxygen flow rate 3 L/min DO Mervin Ball Work Phone: [facility] 12-21-2023 08:01-0400 Body height 156.21 cm DO Mervin Ball Work Phone: [facility] 12-21-2023 08:01-0400 Body weight 70.3 kg DO Mervin Ball Work Phone: [facility] 12-21-2023 08:01-0400 Respiratory rate 16 /min DO Mervin Ball Work Phone: [facility] 12-13-2023 15:03-0400 Body height 154.94 cm DO Mervin Ball Work Phone: [facility] 12-13-2023 15:03-0400 Body mass index (BMI) [Ratio] 28.8 kg/m2 DO Mervin Ball Work Phone: [facility] 12-13-2023 15:03-0400 Body weight 69.11 kg DO Mervin Ball Work Phone: [facility] 12-13-2023 15:03-0400 Diastolic blood pressure 60 mm[Hg] DO Mervin Ball Work Phone: [facility] 12-13-2023 15:03-0400 Heart rate 73 /min DO Mervin Ball Work Phone: [facility] 12-13-2023 15:03-0400 Respiratory rate 12 /min DO Mervin Ball Work Phone: [facility] 12-13-2023 15:03-0400 Systolic blood pressure 90 mm[Hg] DO Mervin Ball Work Phone: [facility] 11-24-2023 10:50-0400 Body height 154.94 cm DO Mervin Ball Work Phone: [facility] 11-24-2023 10:50-0400 Body mass index (BMI) [Ratio] 29.5 kg/m2 DO Mervin Ball Work Phone: [facility] 11-24-2023 10:50-0400 Body weight 71 kg DO Mervin Ball Work Phone: [facility] 11-01-2023 13:04-0400 Body height 154.94 cm DO Mervni Ball Work Phone: [facility] 11-01-2023 13:04-0400 Body mass index (BMI) [Ratio] 29.6 kg/m2 DO Mervin Ball Work Phone: [facility] 11-01-2023 13:04-0400 Body weight 71.21 kg DO Mervin Ball Work Phone: [facility] 11-01-2023 13:04-0400 Diastolic blood pressure 70 mm[Hg] DO Mervin Ball Work Phone: [facility] 11-01-2023 13:04-0400 Heart rate 66 /min DO Mervin Ball Work Phone: [facility] 11-01-2023 13:04-0400 SaO2% (BldA) [Mass fraction] 100 % DO Mervin Ball Work Phone: [facility] 11-01-2023 13:04-0400 Systolic blood pressure 110 mm[Hg] DO Mervin Ball Work Phone: [facility] 10-19-2023 10:10-0400 Body height 154.94 cm DO Mervni Ball Work Phone: [facility] 10-19-2023 10:10-0400 Body mass index (BMI) [Ratio] 29.5 kg/m2 DO Mervin Ball Work Phone: [facility] 10-19-2023 10:10-0400 Body weight 70.93 kg DO Mervin Ball Work Phone: [facility] 09-14-2023 15:14-0400 Body height 154.94 cm DO Mervin Ball Work Phone: [facility] 09-14-2023 15:14-0400 Body mass index (BMI) [Ratio] 28.7 kg/m2 DO Mervin Ball Work Phone: [facility] 09-14-2023 15:14-0400 Body weight 69 kg DO Mervin Ball Work Phone: [facility] 09-14-2023 15:14-0400 Diastolic blood pressure 77 mm[Hg] DO Mervin Ball Work Phone: [facility] 09-14-2023 15:14-0400 Heart rate 65 /min DO Mervin Ball Work Phone: [facility] 09-14-2023 15:14-0400 Respiratory rate 12 /min DO Mervin Ball Work Phone: [facility] 09-14-2023 15:14-0400 Systolic blood pressure 123 mm[Hg] DO Mervin Ball Work Phone: [facility] 09-07-2023 08:57-0400 Diastolic blood pressure 56 mm[Hg] DO Mervin Ball Work Phone: [facility] 09-07-2023 08:57-0400 Heart rate 64 /min DO Mervin Ball Work Phone: [facility] 09-07-2023 08:57-0400 Respiratory rate 16 /min DO Mervin Ball Work Phone: [facility] 09-07-2023 08:57-0400 SaO2% (BldA) [Mass fraction] 98 % DO Mervin Ball Work Phone: [facility] 09-07-2023 08:57-0400 Systolic blood pressure 103 mm[Hg] DO Mervin Ball Work Phone: [facility] 09-07-2023 08:21-0400 Inhaled oxygen flow rate 3 L/min DO Mervin Ball Work Phone: [facility] 09-07-2023 07:26-0400 Body height 154.94 cm DO Mervin Ball Work Phone: [facility] 09-07-2023 07:26-0400 Body weight 71.21 kg DO Mervin Ball Work Phone: [facility] 07-20-2023 10:36-0400 Body height 154.94 cm [facility] 07-20-2023 10:36-0400 Body mass index (BMI) [Ratio] 29.8 kg/m2 [facility] 07-20-2023 10:36-0400 Body weight 71.66 kg [facility] 07-15-2023 10:39-0400 Body height 154.9 cm Bryce Hendrickson MD Work Phone: [facility] 07-15-2023 10:39-0400 Body mass index (BMI) [Ratio] 29.66 kg/m2 Bryce Hendrickson MD Work Phone: [facility] 07-15-2023 10:39-0400 Body weight 71.22 kg Bryce Hendrickson MD Work Phone: [facility] 07-15-2023 10:39-0400 Diastolic blood pressure 74 mm[Hg] Bryce Hendrickson MD Work Phone: [facility] 07-15-2023 10:39-0400 Heart rate 64 /min Bryce Hendrickson MD Work Phone: [facility] 07-15-2023 10:39-0400 Systolic blood pressure 108 mm[Hg] Bryce Hendrickson MD Work Phone: [facility] 06-22-2023 13:28-0500 Body height 157.5 cm Joaquin Mercado MD Work Phone: [facility] 06-22-2023 13:28-0500 Body temperature 97.59 [degF] Joaquin Mercado MD Work Phone: [facility] 06-22-2023 13:28-0500 Body weight 70.6 kg Joaquin Mercado MD Work Phone: [facility] 06-22-2023 13:28-0500 Diastolic blood pressure 57 mm[Hg] Joaquin Mercado MD Work Phone: [facility] 06-22-2023 13:28-0500 Heart rate 67 /min Joaquin Mercado MD Work Phone: [facility] 06-22-2023 13:28-0500 Respiratory rate 16 /min Joaquin Mercado MD Work Phone: [facility] 06-22-2023 13:28-0500 SaO2% (BldA) [Mass fraction] 96 % Joqauin Mercado MD Work Phone: [facility] 06-22-2023 13:28-0500 Systolic blood pressure 111 mm[Hg] Joaquin Mercado MD Work Phone: [facility] 06-21-2023 10:54-0500 Body height 154.94 cm DO Mervin Ball Work Phone: [facility] 06-21-2023 10:54-0500 Body mass index (BMI) [Ratio] 29.5 kg/m2 DO Mervin Ball Work Phone: [facility] 06-21-2023 10:54-0500 Body weight 70.93 kg DO Mervin Ball Work Phone: [facility] 05-26-2023 10:40-0500 Body height 154.94 cm Vivi Biggs Other [facility] 05-26-2023 10:40-0500 Body mass index (BMI) [Ratio] 30.04 kg/m2 Vivi [employer] Other [facility] [employer] Other 05-26-2023 10:40-0500 Body weight 72.12 kg Vivi Biggs Other [facility] 04-29-2023 14:00-0500 Body height 154.94 cm Mervin Ball Other [facility] 04-29-2023 14:00-0500 Body mass index (BMI) [Ratio] 30.15 kg/m2 Mervin Ball Other [facility] [employer] Other 04-29-2023 14:00-0500 Body weight 72.39 kg Mervin Ball Other [facility] 04-29-2023 14:00-0500 Diastolic blood pressure 57 mm[Hg] Mervin Ball Other [facility] 04-29-2023 14:00-0500 Systolic blood pressure 119 mm[Hg] Mervin Ball Other [facility] 04-27-2023 11:00-0500 Body height 154.94 cm Devin Moreau Other [facility] 04-27-2023 11:00-0500 Body mass index (BMI) [Ratio] 29.66 kg/m2 Devin Moreau Other [facility] [employer] Other 04-27-2023 11:00-0500 Body weight 71.22 kg Devin Moreau Other [facility] [employer] Other 04-27-2023 11:00-0500 Body weight 71.21 kg DO Mervin Ball Work Phone: [facility] 04-20-2023 11:34-0500 Diastolic blood pressure 63 mm[Hg] DO Mervin Ball Work Phone: [facility] 04-20-2023 11:34-0500 Systolic blood pressure 111 mm[Hg] DO Mervin Ball Work Phone: [facility] 04-20-2023 06:13-0500 Body temperature 97.4 [degF] DO Mervin Ball Work Phone: [facility] 04-20-2023 06:13-0500 Body weight 66 kg DO Mervin Ball Work Phone: [facility] 04-20-2023 06:13-0500 Heart rate 84 /min DO Mervin Ball Work Phone: [facility] 04-20-2023 06:13-0500 Respiratory rate 18 /min DO Mervin Ball Work Phone: [facility] 04-20-2023 06:13-0500 SaO2% (BldA) [Mass fraction] 99 % DO Mervin Ball Work Phone: [facility] 04-16-2023 08:45-0500 Body height 154.94 cm DO Mervin Ball Work Phone: [facility] 04-15-2023 11:35-0500 Body temperature 97.7 [degF] DO Mervin Ball Work Phone: [facility] 04-15-2023 11:35-0500 Diastolic blood pressure 64 mm[Hg] DO Mervin Ball Work Phone: [facility] 04-15-2023 11:35-0500 Heart rate 71 /min DO Mervin Ball Work Phone: [facility] 04-15-2023 11:35-0500 Respiratory rate 12 /min DO Mervin Ball Work Phone: [facility] 04-15-2023 11:35-0500 SaO2% (BldA) [Mass fraction] 100 % DO Mervin Ball Work Phone: [facility] 04-15-2023 11:35-0500 Systolic blood pressure 96 mm[Hg] DO Mervin Ball Work Phone: [facility] 04-15-2023 06:00-0500 Body weight 78 kg DO Mervin Ball Work Phone: [facility] 04-13-2023 10:50-0500 Inhaled oxygen flow rate 2 L/min DO Mervin Ball Work Phone: [facility] 04-13-2023 06:58-0500 Body height 156.21 cm DO Mervin Ball Work Phone: [facility] 04-13-2023 06:58-0500 Body mass index (BMI) [Ratio] 28.8 kg/m2 DO Mervin Ball Work Phone: [facility] 04-09-2023 07:17-0500 Body height 156.21 cm DO Mervin Ball Work Phone: [facility] 04-09-2023 07:17-0500 Body mass index (BMI) [Ratio] 28.7 kg/m2 DO Mervin Ball Work Phone: [facility] 04-09-2023 07:17-0500 Body weight 70 kg DO Mervin Ball Work Phone: [facility] 04-09-2023 05:55-0500 Body temperature 97.6 [degF] DO Mervin Ball Work Phone: [facility] 04-09-2023 05:55-0500 Diastolic blood pressure 60 mm[Hg] DO Mervin Ball Work Phone: [facility] 04-09-2023 05:55-0500 Heart rate 63 /min DO Mervin Ball Work Phone: [facility] 04-09-2023 05:55-0500 Respiratory rate 18 /min DO Mervin Ball Work Phone: [facility] 04-09-2023 05:55-0500 SaO2% (BldA) [Mass fraction] 100 % DO Mervin Ball Work Phone: [facility] 04-09-2023 05:55-0500 Systolic blood pressure 111 mm[Hg] DO Mervin Ball Work Phone: [facility] 03-18-2023 10:58-0500 Body height 154.9 cm Bryce Hendrickson MD Work Phone: [facility] 03-18-2023 10:58-0500 Body mass index (BMI) [Ratio] 29.48 kg/m2 Bryce Hendrickson MD Work Phone: [facility] 03-18-2023 10:58-0500 Body weight 70.76 kg Bryce Hendrickson MD Work Phone: [facility] 03-18-2023 10:58-0500 Diastolic blood pressure 80 mm[Hg] Bryce Hendrickson MD Work Phone: [facility] 03-18-2023 10:58-0500 Heart rate 62 /min Bryce Hendrickson MD Work Phone: [facility] 03-18-2023 10:58-0500 Systolic blood pressure 118 mm[Hg] Bryce Hendrickson MD Work Phone: [facility] 03-10-2023 11:00-0500 Body height 154.94 cm Radha Moreau Other [employer] Other 03-10-2023 11:00-0500 Body mass index (BMI) [Ratio] 29.21 kg/m2 Radha Moreau Other [employer] Other 03-10-2023 11:00-0500 Body weight 70.13 kg Radha Moreau Other [employer] Other 03-10-2023 11:00-0500 Diastolic blood pressure 71 mm[Hg] Radha Moreau Other [employer] Other 03-10-2023 11:00-0500 Systolic blood pressure 110 mm[Hg] Radha Moreau Other [employer] Other 03-02-2023 10:00-0400 Body height 157.5 cm Bryce Hendrickson MD Work Phone: [facility] 03-02-2023 10:00-0400 Body mass index (BMI) [Ratio] 28.35 kg/m2 Bryce Hendrickson MD Work Phone: [facility] 03-02-2023 10:00-0400 Body weight 70.31 kg Bryce Hendrickson MD Work Phone: [facility] 03-02-2023 10:00-0400 Diastolic blood pressure 68 mm[Hg] Bryce Hendrickson MD Work Phone: [facility] 03-02-2023 10:00-0400 Heart rate 68 /min Bryce Hendrickson MD Work Phone: [facility] 03-02-2023 10:00-0400 Systolic blood pressure 110 mm[Hg] Bryce Hendrickson MD Work Phone: [facility] 02-25-2023 10:20-0400 Body height 154.94 cm Devin Moreau Other [employer] Other 02-25-2023 10:20-0400 Body mass index (BMI) [Ratio] 29.66 kg/m2 Devin Moreau Other [employer] Other 02-25-2023 10:20-0400 Body weight 71.22 kg Devin Moreau Other [employer] Other 01-21-2023 09:20-0400 Body height 154.94 cm Devin Moreau Other [employer] Other 01-21-2023 09:20-0400 Body mass index (BMI) [Ratio] 29.09 kg/m2 Devin Moreau Other [employer] Other 01-21-2023 09:20-0400 Body weight 69.85 kg Devin Santi Other [employer] Other 01-21-2023 09:20-0400 Diastolic blood pressure 70 mm[Hg] Devin Santi Other [employer] Other 01-21-2023 09:20-0400 Systolic blood pressure 106 mm[Hg] Devin Moreau Other [employer] Other 01-07-2023 08:45-0400 Body height 154.94 cm Mervin Ball Other [employer] Other 01-07-2023 08:45-0400 Body mass index (BMI) [Ratio] 29.51 kg/m2 Mervin Ball Other [employer] Other 01-07-2023 08:45-0400 Body weight 70.85 kg Mervin Ball Other [employer] Other 01-07-2023 08:45-0400 Diastolic blood pressure 63 mm[Hg] Mervin Ball Other [employer] Other 01-07-2023 08:45-0400 Respiratory rate 12 /min Mervin Ball Other [employer] Other 01-07-2023 08:45-0400 Systolic blood pressure 101 mm[Hg] Mervin Ball Other [employer] Other 07-16-2022 11:30-0400 Body height 154.94 cm Mervin Ball Other [employer] Other 07-16-2022 11:30-0400 Body mass index (BMI) [Ratio] 28.04 kg/m2 Mervin Ball Other [employer] Other 07-16-2022 11:30-0400 Body weight 67.31 kg Mervin Ball Other [employer] Other 07-16-2022 11:30-0400 Diastolic blood pressure 70 mm[Hg] Mervin Ball Other [employer] Other 07-16-2022 11:30-0400 Respiratory rate 12 /min Mervin Ball Other [employer] Other 07-16-2022 11:30-0400 Systolic blood pressure 118 mm[Hg] Mervin Ball Other [employer] Other 06-23-2022 14:40-0500 Body height 154.94 cm Devin Moreau Other [employer] Other 06-23-2022 14:40-0500 Body mass index (BMI) [Ratio] 31.36 kg/m2 Devin Moreau Other [employer] Other 06-23-2022 14:40-0500 Body weight 75.3 kg Devin Moreau Other [employer] Other 06-10-2022 12:00-0500 61 1 Mervin E Ball Work Phone: [facility] Work Phone: Comment on above: [id number] 05-19-2022 13:19-0500 Body height 157.5 cm Joaquin Mercado MD Work Phone: [facility] 05-19-2022 13:19-0500 Body temperature 97.39 [degF] Joaquin Mercado MD Work Phone: [facility] 05-19-2022 13:19-0500 Body weight 71.22 kg Joaquin Mercado MD Work Phone: [facility] 05-19-2022 13:19-0500 Diastolic blood pressure 62 mm[Hg] Joaquin Mercado MD Work Phone: [facility] 05-19-2022 13:19-0500 Heart rate 66 /min Joaquin Mercado MD Work Phone: [facility] 05-19-2022 13:19-0500 Respiratory rate 18 /min Joaquin Mercado MD Work Phone: [facility] 05-19-2022 13:19-0500 SaO2% (BldA) [Mass fraction] 97 % Joaquin Mrecado MD Work Phone: [facility] 05-19-2022 13:19-0500 Systolic blood pressure 141 mm[Hg] Joaquin Mercado MD Work Phone: [facility] 05-14-2022 14:20-0500 Body height 154.94 cm [employer] Other [employer] Other 05-14-2022 14:20-0500 Body mass index (BMI) [Ratio] 31.36 kg/m2 [employer] Other [employer] Other 05-14-2022 14:20-0500 Body weight 75.3 kg [employer] Other [employer] Other 05-12-2022 11:27-0500 Body height 154.94 cm Mervin E Ball Work Phone: [facility] 250 DO Work Phone: 05-12-2022 11:27-0500 Body mass index (BMI) [Ratio] 29.67 kg/m2 Mervin E Ball Work Phone: [facility] 250 DO Work Phone: 05-12-2022 11:27-0500 Body surface area Derived from formula 1.7 m2 Mervin E Ball Work Phone: [facility] 250 DO Work Phone: 05-12-2022 11:27-0500 Body weight 71.22 kg Mervin E Ball Work Phone: [facility] 250 DO Work Phone: 05-12-2022 11:27-0500 Diastolic blood pressure 76 mm[Hg] Mervin E Ball Work Phone: [facility] 250 DO Work Phone: 05-12-2022 11:27-0500 Heart rate 72 /min Mervin E Ball Work Phone: [facility] 250 DO Work Phone: 05-12-2022 11:27-0500 Systolic blood pressure 128 mm[Hg] Mervin E Ball Work Phone: [facility] 250 DO Work Phone: 04-01-2022 07:54-0500 Body temperature 98.1 [degF] DO Mervin Ball Work Phone: [facility] 04-01-2022 07:54-0500 Diastolic blood pressure 80 mm[Hg] DO Mervin Ball Work Phone: [facility] 04-01-2022 07:54-0500 Heart rate 75 /min DO Mervin Ball Work Phone: [facility] 04-01-2022 07:54-0500 Respiratory rate 16 /min DO Mervin Ball Work Phone: [facility] 04-01-2022 07:54-0500 SaO2% (BldA) [Mass fraction] 98 % DO Mervin Ball Work Phone: [facility] 04-01-2022 07:54-0500 Systolic blood pressure 132 mm[Hg] DO Mervin Ball Work Phone: [facility] 04-01-2022 04:13-0500 Body weight 76.8 kg DO Mervin Ball Work Phone: [facility] 03-31-2022 00:09-0500 Inhaled oxygen concentration 21 % DO Mervin Ball Work Phone: [facility] 03-30-2022 16:00-0500 Inhaled oxygen flow rate 2 L/min DO Mervin Ball Work Phone: [facility] 03-30-2022 08:58-0500 Body height 156.21 cm DO Mervin Ball Work Phone: [facility] 03-30-2022 08:58-0500 Body mass index (BMI) [Ratio] 29.6 kg/m2 DO Mervin Ball Work Phone: [facility] 02-10-2022 08:39-0400 Body height 154.94 cm [facility]in E [facility] Work [facility]: [facility] DO Work Phone: 02-10-2022 08:39-0400 Body mass index (BMI) [Ratio] 30.42 kg/m2 [facility]ervin E [facility]: [email or web address] Work Phone: 02-10-2022 08:39-0400 Body surface area Derived from formula 1.72 m2 Mervin E Ball Work [facility]: [facility] Work Phone: 02-10-2022 08:39-0400 Body weight 73.03 kg Mervin E Ball Work Phone: [facility] [employer] 600 DO Work Phone: 02-10-2022 08:39-0400 Diastolic blood pressure 80 mm[Hg] Mervin E Ball Work Phone: [facility] [employer] 600 DO Work Phone: 02-10-2022 08:39-0400 Heart rate 62 /min Mervin E Ball Work Phone: [facility] [employer] 600 DO Work Phone: 02-10-2022 08:39-0400 Systolic blood pressure 110 mm[Hg] Mervin E Ball Work Phone: [facility] [employer] 600 DO Work Phone: 01-20-2022 12:40-0400 Body height 154.94 cm Devin Moreau Other [employer] Other 01-20-2022 12:40-0400 Body mass index (BMI) [Ratio] 31.36 kg/m2 Devin Moreau Other [employer] Other 01-20-2022 12:40-0400 Body weight 75.3 kg Devin Moreau Other [employer] Other 12-30-2021 10:00-0400 Body height 154.94 cm Devin Moreau Other [employer] Other 12-30-2021 10:00-0400 Body mass index (BMI) [Ratio] 31.36 kg/m2 Devin Moreau Other [employer] Other 12-30-2021 10:00-0400 Body weight 75.3 kg Devin Moreau Other [employer] Other 11-04-2021 12:00-0400 Body height 154.94 cm Devin Moreau Other [facility] [employer] Other 11-04-2021 12:00-0400 Body mass index (BMI) [Ratio] 31.17 kg/m2 Devin Moreau Other [facility] [employer] Other 11-04-2021 12:00-0400 Body weight 74.84 kg Devin Moreau Other [facility] [employer] Other 10-09-2021 11:59-0400 Body temperature 98.2 [degF] DO Mervin Ball Work Phone: [facility] 10-09-2021 11:59-0400 Diastolic blood pressure 74 mm[Hg] DO Mervin Ball Work Phone: [facility] 10-09-2021 11:59-0400 Heart rate 73 /min DO Mervin Ball Work Phone: [facility] 10-09-2021 11:59-0400 Respiratory rate 13 /min DO Mervin Ball Work Phone: [facility] 10-09-2021 11:59-0400 SaO2% (BldA) [Mass fraction] 99 % DO Mervin Ball Work Phone: [facility] 10-09-2021 11:59-0400 Systolic blood pressure 115 mm[Hg] DO Mervin Ball Work Phone: [facility] 10-09-2021 04:55-0400 Body weight 84 kg DO Mervin Ball Work Phone: [facility] 10-08-2021 14:14-0400 Inhaled oxygen flow rate 8 L/min DO Mervin Ball Work Phone: [facility] 10-08-2021 12:02-0400 Body mass index (BMI) [Ratio] 30.8 kg/m2 DO Mervin Ball Work Phone: [facility] 10-08-2021 11:59-0400 Body height 160.02 cm DO Mervin Jacob Work Phone: [facility] 08-07-2021 16:20-0400 Body height 154.94 cm Devin Moreau Other [employer] Other 08-07-2021 16:20-0400 Body mass index (BMI) [Ratio] 31.17 kg/m2 Devin Moreau Other [employer] Other 08-07-2021 16:20-0400 Body weight 74.84 kg Devin Moreau Other [employer] Other Encounters Encounter Date Encounter Type Care Provider Facility Start: 03-28-2024 End: 03-28-2024 ambulatory CHUCK H TIMMIS Not Available Start: 03-28-2024 End: 03-28-2024 Office outpatient visit 25 minutes Chuck Cope MD Work Phone: [facility] Comment on above: Chronic frontal sinu sitis (Primary Dx) Start: 03-08-2024 End: 03-08-2024 Jonathan Cope MD Work Phone: [facility] Start: 03-08-2024 End: 03-08-2024 Jonathan Cope MD Work Phone: [facility] Start: 03-08-2024 End: 03-08-2024 Office outpatient visit 25 minutes Chuck Cope MD Work Phone: [facility] Comment on above: Chronic sinusitis, u nspecified location (Primary Dx) Start: 03-08-2024 End: 03-08-2024 ambulatory CHUCK H TIMMIS Not Available Start: 03-01-2024 Non-patient / Non-visit DO Jairo Jacob Work Phone: [facility] Work Phone: Start: 03-01-2024 End: 03-01-2024 ambulatory DO Mervin Jacob Work Phone: [facility] Work Phone: Start: 03-01-2024 End: 03-01-2024 Patient encounter procedure DO Mervin Ball Work Phone: [facility] Work Phone: Start: 02-08-2024 End: 02-08-2024 Patient encounter procedure DO Mervin Jacob Work Phone: [facility] Neuro[facility] Work Phone: Start: 02-08-2024 End: 02-08-2024 ambulatory DO Mervin Jacob Work Phone: [facility] Work Phone: Start: 01-18-2024 End: 01-18-2024 ambulatory [facility] Start: 01-06-2024 End: 01-06-2024 Telephone encounter Merced Will RN Work Phone: Hematology/Oncology Comment on above: Radiology Mammogram Start: 01-05-2024 End: 01-05-2024 ambulatory DO Mervin Jacob Work Phone: [facility] Work Phone: Start: 01-05-2024 End: 01-05-2024 Patient encounter procedure DO Mervin Jacob Work Phone: [facility] Work Phone: Start: 12-21-2023 Non-patient / Non-visit DO Jairo Jacob Work Phone: [facility] Work Phone: Start: 12-21-2023 End: 12-21-2023 Admission to same day surgery center DO Mervin Ball Work Phone: [facility] Work Phone: Start: 12-21-2023 End: 12-21-2023 ambulatory DO Mervin Ball Work Phone: [facility] Work Phone: Start: 12-13-2023 End: 12-13-2023 ambulatory DO Mervin Ball Work Phone: [facility] Work Phone: Start: 12-13-2023 End: 12-13-2023 Patient encounter procedure DO Mervin Ball Work Phone: [facility] Work Phone: Start: 11-24-2023 End: 11-24-2023 ambulatory DO Mervin Ball Work Phone: [facility] Work Phone: Start: 11-24-2023 End: 11-24-2023 Patient encounter procedure DO Mervin Ball Work Phone: [facility] Work Phone: Start: 11-01-2023 End: 11-01-2023 ambulatory DO Mervin Ball Work Phone: [facility] Work Phone: Start: 11-01-2023 End: 11-01-2023 Patient encounter procedure DO Mervin Ball Work Phone: [facility] Work Phone: Start: 10-19-2023 End: 10-19-2023 Patient encounter procedure DO Mervin Ball Work Phone: [facility] Neurosurgery Work Phone: Start: 10-19-2023 End: 10-19-2023 ambulatory DO Mervin Ball Work Phone: [facility] Work Phone: Start: 10-08-2023 End: 10-08-2023 ambulatory ALLEN ENCARNACION Not Available Start: 09-22-2023 End: 09-22-2023 ambulatory DO Mervin Ball Work Phone: [facility] Work Phone: Start: 09-22-2023 End: 09-22-2023 Patient encounter procedure DO Mervin Jacob Work Phone: [facility] Work Phone: Start: 09-17-2023 Non-patient / Non-visit DO Jairo Jacob Work Phone: [facility] Work Phone: Start: 09-14-2023 End: 09-14-2023 Patient encounter procedure DO Mervin Jacob Work Phone: [facility] Work Phone: Start: 09-07-2023 Non-patient / Non-visit DO Jairo Jacob Work Phone: [facility] Work Phone: Start: 09-07-2023 End: 09-07-2023 Admission to same day surgery center DO Mervin Jacob Work Phone: [facility] Work Phone: Start: 09-07-2023 End: 09-07-2023 ambulatory DO Mervin Jacob Work Phone: [facility] Work Phone: Start: 08-11-2023 End: 08-11-2023 ambulatory NON STAFF [facility] Work Phone: Start: 08-11-2023 End: 08-11-2023 Patient encounter procedure [facility] Work Phone: Start: 07-28-2023 Non-patient / Non-visit [facility] Work Phone: Start: 07-20-2023 End: 07-20-2023 Patient encounter procedure [facility] Neuro[facility] Work Phone: Start: 07-20-2023 End: 07-20-2023 ambulatory NON STAFF [facility] Work Phone: Start: 07-15-2023 End: 07-15-2023 ambulatory BRYCE Anglin [facility] Start: 07-15-2023 End: 07-15-2023 Office outpatient visit 25 minutes Bryce Hendrickson MD Work Phone: [facility] Comment on above: Mitral valve insuffi ciency, unspecified etiology; Essential hypertension; Left ventricular systolic dysfunction; BMI 29.0-29.9,adult; Never smoked tobacco Start: 06-29-2023 Non-patient / Non-visit [facility] Work Phone: Start: 06-22-2023 End: 06-22-2023 Patient encounter procedure Joaquin Mercado MD Work Phone: [place] Start: 06-22-2023 End: 06-22-2023 ambulatory Joaquin Mercado MD Work Phone: Hematology/Oncology Comment on above: Malignant neoplasm o f upper-outer quadrant of left breast in female, estrogen receptor negative (HCC) (HCC) (Primary Dx); 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 [employer] Other Start: 06-08-2023 Telephone encounter Mervin Jacob [facility] Start: 05-26-2023 Postop follow up vis it related to original px Vivi Biggs [facility] Neuro[facility] Start: 05-26-2023 End: 05-26-2023 Patient encounter procedure DO Mervin Ball Work Phone: [facility] Work Phone: Start: 05-26-2023 End: 05-26-[address] [facility] [employer] Other Start: 05-26-2023 End: 05-26-2023 Patient encounter procedure DO Mervin Ball Work Phone: [facility]- Start: 05-07-2023 End: 05-07-2023 ambulatory Mervin Ball Other [employer] Other Start: 05-07-2023 Office outpatient vi sit 15 minutes Mervin Ball [facility] Start: 05-07-2023 Patient encounter procedure DO Mervin Ball Work Phone: [facility]- Start: 04-29-2023 End: 04-29-2023 ambulatory Mervin Ball Other [employer] Other Start: 04-29-2023 Office outpatient vi sit 25 minutes Mervin Ball [facility] Start: 04-29-2023 Telephone encounter Mervin Ball [facility] Start: 04-29-2023 End: 04-29-2023 Patient encounter procedure DO Mervin Ball Work Phone: [facility] Work Phone: Start: 04-27-2023 End: 04-27-2023 ambulatory Devin Moreau Other [employer] Other Start: 04-27-2023 Postop follow up vis it related to original px Devin Moreau [facility] Neuro[facility] Start: 04-27-2023 End: 04-27-2023 Patient encounter procedure DO Mervin Ball Work Phone: [facility] Neuro[facility] Work Phone: Start: 04-23-2023 End: 04-23-2023 ambulatory Mervin Jacob Other [employer] Other Start: 04-23-2023 Telephone encounter Mervin RANGEL [facility] Start: 04-22-2023 ambulatory UNKNOWN PROVIDER Facili ty:[facility] Start: 04-15-2023 End: 04-20-2023 Evaluation and management of inpatient DO Mervin Ball Work Phone: [facility] Work Phone: Start: 04-13-2023 End: 04-15-2023 Admission to same day surgery center DO [facility] Start: 04-13-2023 End: 04-15-2023 ambulatory Devin Moreau Facility:[facility] Start: 04-09-2023 End: 04-09-2023 Admission to same day surgery center DO [facility] Start: 04-09-2023 End: 04-09-2023 ambulatory DO Mervin Jacob Work Phone: [facility] Work Phone: Start: 03-26-2023 End: 03-26-2023 Patient encounter procedure DO Mervin Jacob Work Phone: [facility]Pre-Surgical Testing Work Phone: Start: 03-26-2023 End: 03-26-2023 ambulatory Devin Moreau Facility:[facility] Start: 03-23-2023 End: 03-23-2023 ambulatory Mervin Jacob Other [employer] Other Start: 03-23-2023 Telephone encounter Mervin Jacob JUAN CARLOS [facility] Start: 03-18-2023 End: 03-18-2023 ambulatory Radha Moreau Other [employer] Other Start: 03-18-2023 Telephone encounter Radha THOMAS [facility] Start: 03-18-2023 End: 03-18-2023 Office outpatient visit 25 minutes Bryce Hendrickson MD Work Phone: [facility] Comment on above: Mitral valve insuffi ciency, unspecified etiology (Primary Dx); Essential hypertension; Overweight with body mass index (BMI) of 29 to 29.9 in adult; Edema, unspecified type; Left ventricular systolic dysfunction Start: 03-10-2023 Encounter for gyneco logical examination (general) (routine) without abnormal findings Radha Moreau [facility] Start: 03-10-2023 Office outpatient vi sit 25 minutes Radha Moreau [facility] Start: 03-10-2023 Telephone encounter Devin Moreau [facility] Start: 03-10-2023 End: 03-10-2023 ambulatory DO Mervin Jacob Work Phone: [facility] [employer] Other Start: 03-10-2023 End: 03-10-2023 Departed Referred DO Mervin Jacob Work Phone: [facility] [employer] Work Phone: Start: 03-05-2023 End: 03-05-2023 ambulatory Mervin Jacob Other [facility] [employer] Other Start: 03-05-2023 Telephone encounter Mervin RANGEL [facility] Start: 03-04-2023 End: 03-04-2023 ambulatory Mervin Jacob Other [facility] [employer] Other Start: 03-04-2023 Telephone encounter Mervin RANGEL [facility] Start: 03-03-2023 End: 03-03-2023 [facility] Start: 03-02-2023 End: 03-02-2023 Office outpatient visit 25 minutes Bryce Hendrickson MD Work Phone: [facility] Comment on above: Mitral valve insuffi ciency, unspecified etiology; Essential hypertension; Edema, unspecified type; LBBB (left bundle branch block) Start: 03-01-2023 End: 03-01-2023 ambulatory Mervin Jacob Other [employer] Other Start: 03-01-2023 Telephone encounter [facility] Start: 02-25-2023 End: 02-25-2023 ambulatory Devin Moreau Other [place] [facility] Other Start: 02-25-2023 Office outpatient vi sit 40 minutes Devin Moreau [facility] Start: 02-22-2023 End: 02-22-2023 ambulatory Mervin Jacob Other [place] [facility] Other Start: 02-22-2023 Nursing evaluation o f patient and report Mervin Jacob [facility] Start: 02-22-2023 Telephone encounter [facility] Start: 02-15-2023 End: 02-15-2023 ambulatory DO Mervin Jacob Work Phone: [facility] Work Phone: Start: 02-15-2023 End: 02-15-2023 Patient encounter procedure DO Mervin Jacob Work Phone: [facility]-MRI [facility] [employer] Work Phone: Start: 02-09-2023 End: 02-09-2023 ambulatory Mervin Jacob Other [employer] Other Start: 02-09-2023 Telephone encounter Mervin RANGEL [facility] Start: 02-01-2023 End: 02-01-2023 ambulatory Devin Moreau Other [place] [facility] Other Start: 02-01-2023 Telephone encounter [facility] Start: 01-28-2023 End: 01-28-2023 ambulatory DO Mervin Jacob Work Phone: [facility] Work Phone: Start: 01-28-2023 End: 01-28-2023 Patient encounter procedure DO Mervin Jacob Work Phone: [facility] Work Phone: Start: 01-25-[address] Mervin Jacob Facility:[id number] Start: 01-21-2023 End: 01-21-2023 ambulatory Devin Moreau Other [employer] Other Start: 01-21-2023 Office outpatient vi sit 15 minutes Devin Moreau [facility] Start: 01-07-2023 End: 01-07-2023 ambulatory Mervin Jacob Other [employer] Other Start: 01-07-2023 Patient encounter procedure [facility]in [facility] Start: 01-05-2023 End: 01-05-2023 ambulatory Mervin Jacob Other [employer] Other Start: 01-05-2023 Telephone encounter Mervin [facility] Start: 10-21-2022 End: 10-21-2022 ambulatory Mervin Jacob Other [employer] Other Start: 10-21-2022 Telephone encounter Mervin Jacob FP G [facility] Start: 09-03-2022 End: 09-03-[address] MERVIN JACOB Facility:H1 Start: 08-18-2022 End: 08-19-[address] MERVIN JACOB Facility:H1 Start: 08-14-2022 End: 08-14-2022 ambulatory Mervin Jacob Other [employer] Other Start: 08-14-2022 Telephone encounter Mervin Jacob FP [facility] Start: 08-04-2022 End: 08-04-2022 ambulatory Mervin Jacob Other [employer] Other Start: 08-04-2022 Telephone encounter Mervin Jacob FP [facility] Start: 07-16-2022 End: 07-16-2022 ambulatory Mervin aJcob Other [employer] Other Start: 07-16-2022 Office outpatient vi sit 15 minutes Mervin Jacob [facility] Start: 06-23-2022 End: 06-23-2022 ambulatory Devin Moreau Other [facility] [employer] Other Start: 06-23-2022 Postop follow up vis it related to original px Devin Moreau [facility] Start: 06-12-2022 Chart Update Mervin lopez Work Phone: [facility] [employer] 250 DO Work Phone: Start: 06-10-2022 Patient encounter procedure Be real Galo Jacob Work Phone: [facility] [place] Work Phone: Start: 06-10-[address] Mervin Jacob Facility:[id number] Start: 05-22-2022 End: 05-22-2022 ambulatory Mervin Jacob Other [facility] [employer] Other Start: 05-22-2022 Nursing evaluation o f patient and report Mervin [facility] Start: 05-19-2022 End: 05-19-2022 ambulatory Joaquin Mercado MD Work Phone: Hematology/Oncology Comment on above: Malignant neoplasm o f upper-outer quadrant of left breast in female, estrogen receptor negative (HCC) (Primary Dx) Start: 05-19-2022 End: 05-19-2022 Patient encounter procedure Joaquin Mercado MD Work Phone: [facility] Start: 05-14-2022 End: 05-14-2022 ambulatory Vivi Biggs Other [facility] [employer] Other Start: 05-14-2022 Postop follow up vis it related to original px Vivi Kalyan [facility] Start: 05-12-2022 Office outpatient vi sit 25 minutes Mervin Jacob Work Phone: [facility] [employer] [place] 250 DO Work Phone: Start: 05-12-2022 End: 05-12-2022 ambulatory Mervin Jacob Facility: Start: 05-12-2022 End: 05-12-2022 Patient encounter procedure DO Mervin Jacob Work Phone: [facility] Work Phone: Start: 05-11-2022 End: 05-11-[address] MERVIN JACOB Facility:H1 Start: 05-07-2022 End: 05-07-2022 ambulatory Mervin Jacob Other [employer] Other Start: 05-07-2022 Telephone encounter Mervin Jacob FP [facility] Start: 05-06-2022 Refill Joaquin Mercado MD Work Phone: Hematology/Oncology Comment on above: Refill Request Start: 04-14-2022 End: 04-14-2022 ambulatory Devin Moreau Other [place] [facility] Other Start: 04-14-2022 Postop follow up vis it related to original px Devin Moreau [facility] Start: 04-11-2022 End: 04-11-[address] YOSHI SANTIAGO Facility:H1 Start: 03-30-2022 End: 04-01-2022 Admission to same day surgery center Devin Moreau [facility] Start: 03-30-2022 End: 04-01-2022 ambulatory DO Mervin Jacob Work Phone: [employer] Other Start: 03-27-2022 End: 03-27-2022 Patient encounter procedure DO Mervin Jacob Work Phone: [facility] Start: 03-16-2022 (DME) DME Devin Moreau [facility] Start: 03-16-2022 End: 03-16-2022 ambulatory DO Mervin Jacob Work Phone: [facility] Work Phone: Start: 03-16-2022 End: 03-16-2022 Patient encounter procedure DO Mervin Jacob Work Phone: [facility]-Faq[facility] Testing Start: 02-10-2022 Office outpatient vi sit 25 minutes Mervin Jacob Work Phone: [facility] 600 DO Work Phone: Start: 02-10-2022 ambulatory Mervin Jacob Facility: Start: 02-09-2022 (Procedure) Renuka Blackburn [facility] Start: 02-09-2022 End: 02-09-2022 ambulatory Artie Blackburn Other [employer] Other Start: 02-05-2022 End: 02-06-[address] EVELIN LOTT Facility:H1 Start: 01-26-2022 End: 01-26-2022 ambulatory Artie Blackburn Other [employer] Other Start: 01-26-2022 Telephone encounter Artie Blackburn [facility] Start: 01-20-2022 End: 01-20-2022 ambulatory Devin Moreau Other [employer] Other Start: 01-20-2022 Office outpatient vi sit 15 minutes Devin Moreau [facility] Start: 01-12-2022 Adult health examination Jackson karoline Jacob Other [employer] Other Start: 01-09-2022 End: 01-10-[address] TAMY HOLM Facility:H1 Start: 12-30-2021 End: 12-30-2021 ambulatory Devin Moreau Other [employer] Other Start: 12-30-2021 Postop follow up vis it related to original px Devin Moreau [facility] Start: 12-29-2021 End: 12-29-2021 Patient encounter procedure DO Mervin Jacob Work Phone: [facility] Start: 11-04-2021 End: 11-04-2021 ambulatory Devin Moreau Other [employer] Other Start: 11-04-2021 Postop follow up vis it related to original px Devin Moreau [facility] Start: 10-08-2021 End: 10-09-2021 Admission to same day surgery center DO Mervin [facility] Work Phone: [facility] Start: 10-08-2021 End: 10-08-2021 ambulatory Devin Moreau Other [place] [facility] Other Start: 10-06-2021 End: 10-06-2021 Patient encounter procedure DO Mervin Ball Work Phone: [facility] Testing Start: 09-24-2021 End: 09-24-2021 Patient encounter procedure DO Mervin Ball Work Phone: [facility] Start: 08-07-2021 End: 08-07-2021 ambulatory Devin Moreau Other [place] [facility] Other Start: 08-07-2021 Office outpatient vi sit 40 minutes Devin Moreau [facility] Start: 07-08-2021 End: 07-08-2021 Patient encounter procedure DO Mervin Ball Work Phone: [facility] Start: 05-10-2019 Pre-procedure evalua tion check Mervin Ball Other [employer] Other Start: 11-17-2017 Patient encounter BRYCE HENDRICKSON Fac ility:[id number] Procedures Date Procedure Procedure Detail Performing Clinician Start: 02-08-2024 X-ray of lumbar spin e, two or three views DO Mervin Ball Work Phone: Start: 12-21-2023 Injection of local anesthetic into sacroiliac joint DO Mervin Ball Work Phone: Start: 10-19-2023 X-ray of lumbar spin e, two or three views DO Mervin Ball Work Phone: Start: 09-07-2023 Injection of local anesthetic into sacroiliac joint DO Mervin Ball Work Phone: Start: 07-20-2023 X-ray of lumbar spin e, two or three views Start: 07-15-2023 FOLLOW UP IN CARDIOLOGY BRYCE HENDRICKSON Start: 05-26-2023 X-ray of lumbar spin e, two or three views DO Mervin Ball Work Phone: Start: 04-13-2023 Antibody screen Devin ashford Comment on above: Result Comment: PERF ORMED BY: [facility] [address] [place] [address] PATHOLOGIST R&D ENGINEER LUPILLO KHAN M.D. Start: 04-13-2023 OR Lumbar Laminectom y w/Fix Implants (Not Applicable) DO Mervin Ball Work Phone: Start: 04-13-2023 X-ray of lumbar spin e, two or three views DO Mervin Ball Work Phone: Start: 03-26-2023 Antibody screen Devin ashford Comment on above: Order Comment: Date of Surgery: [id number] Result Comment: PERF ORMED BY: [facility] [address] [facility] [place] [address] PATHOLOGIST R&D ENGINEER LUPILLO KHAN M.D. Start: 03-03-2023 MR CARDIAC RESONANCE IMAGING FOR VELOCITY FLOW MAPPING BRYCE HENDRICKSON Start: 03-03-2023 MR CARDIAC MORPHOLOG Y AND FUNCTION WO IV CONTRAST BRYCE HENDRICKSON Start: 02-15-2023 MRI of lumbar spine with contrast DO Mervin Ball Work Phone: Start: 02-15-2023 X-ray of lumbar spin e, six views including bending views DO Mervin Ball Work Phone: Start: 01-28-2023 Dual energy X-ray absorptiometry DO Mervin Ball Work Phone: Start: 05-12-2022 X-ray of lumbar spin e, four views DO Mervin Ball Work Phone: Start: 03-30-2022 OR Lumbar Laminectom y w/Fix Implants (Not Applicable) DO Mervin Ball Work Phone: Start: 03-30-2022 X-ray of lumbar spin e, two or three views DO [facility] Work Phone: Start: 03-27-2022 SARS Antigen (LFIA) DO [facility] Work Phone: Start: 12-29-2021 X-ray of lumbar spin e, four views DO [facility] Work Phone: Start: 10-08-2021 Excision of lumbar intervertebral disc DO [facility] Work Phone: Start: 10-08-2021 X-ray of lumbar spin e, single view DO [facility] Work Phone: Start: 07-08-2021 X-ray of lumbar spin e, six views including bending views DO [facility] Work Phone: Start: 06-05-2020 Antibody screen Comment on above: Performed By: #### T [id number] ####[address] [phone] Start: 11-15-2017 Screening for malign ant neoplasm of colon [employer] Other Start: 07-15-2017 Preoperative cardiov ascular examination [facility] Other Appendectomy Mervin E [employer] Work Phone: Arthroplasty of knee Dyan n E [employer] Work Phone: Cataract surgery Mervin E [employer] Work Phone: Cholecystectomy Mervin E B all Work Phone: Colonoscopy Mervin E [employer] Work Phone: Depression screening [employer] Other Hysterectomy Mervin E [facility] Work Phone: Procedure on back Mervin E [employer] Work Phone: Comment on above: 10/22 03/24; Repair of musculoten dinous cuff of shoulder Mervin E [facility] Work Phone: Screening for malign ant neoplasm of breast [employer] Other Plan of Treatment Date Care Activity Detail Author Start: 06-22-2026 Diabetes Screening Diabetes Screensrini shah [facility] Start: 05-19-2025 DIABETES SCREEN DIABETES SCREEN [facility] Start: 06-22-2024 BP Controlled (<130/80) BP Controlle d (<130/80) [facility] Start: 06-22-2024 Complete blood count Hemoglobin/Shaquille tocrit [facility] Start: 06-22-2024 Creatinine measurement Serum Creatin ine [facility] Start: 06-20-2024 End: 06-20-2024 Follow-up encounter 06/20/2024 1:45 PM EST Visit (SP) Office Hematology/Oncology [address] [place] [address] Joaquin Mercado MD [address] [place] [address] 1 year follow up lab and [facility] Hematology/Oncology Comment on above: 1 year follow up lab and [facility] Start: 06-20-2024 End: 06-20-2024 Patient encounter procedure 06/20/2024 1:30 PM EST Office Visit [facility] [address] [place] [address] 1 year follow up lab and [facility] Comment on above: 1 year follow up lab and [facility] Start: 05-09-2024 End: 05-09-2024 Patient encounter procedure 05/09/2024 11:20 AM EST Office Visit [facility] [address] [facility] [address] [place] [address] Chuck Cope MD [address] [place] [address] [facility] Start: 04-08-2024 DIABETES SCREEN DIABETES SCREEN [facility] Start: 04-07-2024 End: 04-07-2024 Patient encounter procedure 04/07/2024 10:30 AM EST Office Visit [facility] [address] [place] [id number] Allen Encarnacion, [address] [place] [address] [facility] Start: 03-28-2024 End: 03-28-2025 CT Maxillofacial region WO and W contrast IV CT maxillofacial wo IV contrast Imaging Routine Chronic frontal sinusitis Expected: 03/28/2024, Expires: 03/28/2025 [facility] Work Phone: Comment on above: Expected: 03/28/2024 , Expires: 03/28/2025 Start: 03-08-2024 End: 03-08-2024 Patient encounter procedure 03/08/2024 9:20 AM EST Office Visit [facility] [address] [facility] [address] [place] [id number] Chuck Cope MD [address] [place] [address] Arrived [facility] Comment on above: Arrived Start: 03-01-2024 Patient referral [facility] Work Phone: Start: 02-08-2024 X-ray of lumbar spin e, two or three views XR lumbar spine 2-3V* [facility] Start: 01-20-2024 End: 01-20-2024 Patient encounter procedure 01/20/2024 10:20 AM EDT Office Visit [place] [id number] [facility] [address] [place] [address] Bryce Hendrickson MD [address] [facility] [address] [place], [place] [id number] [facility] Start: 01-10-2024 End: 01-10-2024 Patient encounter procedure 01/10/2024 10:45 AM EDT Appointment [place] [id number] [facility] [address] [place] [address] [facility] Start: 01-02-2024 Covid-19 Vaccine ( season) Covid-19 Vaccine () [facility] Start: 01-02-2024 Influenza vaccination Influenza Vacc ine (#1) [facility] Start: 01-02-2024 End: 07-14-2025 US Heart Transthoracic Transthoracic Echo Complete Echocardiography Routine Mitral valve insufficiency, unspecified etiology Expected: 01/02/2024 (Approximate), Expires: 07/14/2025 [facility] Service Area Work Phone: Comment on above: Expected: 01/02/2024 (Approximate), Expires: 07/14/2025 Start: 12-21-2023 [facility] Start: 10-19-2023 X-ray of lumbar spin e, two or three views XR lumbar spine 2-3V* [facility] Start: 09-07-2023 [facility] Start: 07-20-2023 Patient referral [facility] Work Phone: Start: 07-20-2023 X-ray of lumbar spin e, two or three views XR lumbar spine 2-3V* [facility] Start: 07-20-2023 XR Lumbar spine 2 or 3 Views [facility] Start: 07-13-2023 End: 07-13-2023 Patient encounter procedure 07/13/2023 10:50 AM EDT Office Visit [facility] [address] [facility] [address] [place] [address] Bryce Hendrickson MD [address] [facility] [address] [place] [address] [facility] Start: 05-19-2023 SERUM CREATININE SERUM CREATININE Cl [facility] Start: 05-03-2023 Advance Directive Discussion Advance Directive Discussion [facility] Start: 04-20-2023 [facility] Start: 04-15-2023 Hospital admission [facility] Start: 04-15-2023 [facility] Start: 04-14-2023 Referral to rehabilitation physician [facility] Start: 04-13-2023 Hospital admission [facility] Start: 04-09-2023 End: 04-09-2023 OR Lumbar Laminectomy w/Fix Implants (Not Applicable) OR Lumbar Laminectomy w/Fix Implants (Not Applicable) [facility] Start: 04-09-2023 End: 04-09-2023 [facility] Start: 03-19-2023 COVID-19 Vaccine (5 - Pfizer series) COVID-19 Vaccine (5 - Pfizer series) [facility] Start: 03-10-2023 [facility] Start: 03-02-2023 End: 03-02-2024 Basic metabolic 2000 panel - Serum or Plasma Basic Metabolic Panel Lab Routine Edema, unspecified type Expected: 03/02/2023 (Approximate), Expires: 03/02/2024 [facility] Service Area Work Phone: Comment on above: Expected: 03/02/2023 (Approximate), Expires: 03/02/2024 Start: 03-02-2023 FUV, Provider: Bryce Hendrickson, Status: Pen, Time: 10:00 AM FUV, Provider: Bryce Hendrickson, Status: Pen, Time: 10:00 AM [facility] Work Phone: Start: 01-25-2023 ECHO, Provider: CORETTA AVILES [facility] ULTRASOUND 01,[id number], Status: Pen, Time: 10:45 AM ECHO, Provider: JOHN [facility] ULTRASOUND 01,[id number], Status: Pen, Time: 10:45 AM [email or web address] 600 DO Work Phone: Start: 12-09-2022 Screening for osteoporosis Bone Density Scan [facility] Start: 06-10-2022 STRESS NUC, Provider : JOHN [facility] NUCLEAR 01,[id number], Status: Pen, Time: 12:00 PM STRESS NUC, Provider: JOHN [facility] NUCLEAR 01,[id number], Status: Pen, Time: 12:00 PM [facility] [employer] 250 DO Work Phone: Start: 05-19-2022 End: 07-19-2022 Cancer Ag 27-29 [Units/volume] in Serum or Plasma [facility] Work Phone: Comment on above: Expected: 05/19/2022 , Expires: 07/19/2022 Start: 05-03-2022 ADVANCE DIRECTIVE DISCUSSION ADVANCE DIRECTIVE DISCUSSION [facility] Start: 04-08-2022 SERUM CREATININE SERUM CREATININE Cl [facility] Start: 04-01-2022 [facility] Start: 01-01-2022 Influenza vaccination INFLUENZA (#1) [facility] Start: 12-09-2021 Screening for osteoporosis Bone Density Scan [facility] Start: 07-20-2021 PNEUMOCOCCAL: 65+ (2 - PCV) PNEUMOCOCCAL: 65+ (2 - PCV) [facility] Start: 03-25-2021 COVID-19 VACCINE (4 - Booster for Pfizer series) COVID-19 VACCINE (4 - Booster for Pfizer series) [facility] Start: 2014 BONE DENSITY BONE DENSITY [facility] Start: 2014 Screening for osteoporosis Bone Density Screening [facility] Start: 02-22-2014 DTaP/Tdap/Td Vaccine s (1 - Tdap) DTaP/Tdap/Td Vaccines (1 - Tdap) [facility] Start: 02-22-2014 Urine microalbumin profile DTaP,Tdap,Td Vaccine (1 - Tdap) [facility] Start: 2009 RSV Vaccine (1 - 1-d ose 60+ series) RSV Vaccine (1 - 1-dose 60+ series) [facility] Start: 1994 COLOGUARD (FIT-DNA) COLOGUARD (FIT-D NA) [facility] Start: 1994 Colonoscopy COLONOSCOPY [facility] Start: 1994 COLORECTAL CANCER SCREENING COLORECTAL CANCER SCREENING [facility] Start: [address] COLONOGRAPHY [facility] Start: 1994 FECAL OCCULT BLOOD FECAL OCCULT BLOO D [facility] Start: 1994 Lipid panel Lipid Screening [facility] Start: 1994 LIPID SCREEN LIPID SCREEN [facility] Start: 1994 Screening for malign ant neoplasm of colon [facility] Start: 1994 SIGMOIDOSCOPY [facility]OSCOPY 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 ANNUAL PCP TEAM CHRONIC DISEASE VISIT [facility] Start: 12-07-1967 Anxiety Screening Anxiety Screening [facility] Start: 12-07-1967 BP CONTROLLED (<130/80) BP CONTROLLE D (<130/80) [facility] Start: 12-07-1967 HEPATITIS C SCREENING HEPATITIS C [facility] Start: 12-07-1967 Hepatitis C screening Hepatitis C [facility] Start: 1949 Lipid panel Lipid Panel [facility] Start: 1949 Medicare Annual Well ness Visit Medicare Annual Wellness Visit (AWV) [facility] Start: 1949 Screening for malign ant neoplasm of colon [facility] End: 06-18-2023 Diagnostic mammography computer-aided detcj uni [facility] RT Radiology Routine Malignant neoplasm of upper-outer quadrant of left breast in female, estrogen receptor negative (HCC) 1 Occurrences starting 05/19/2022 until 06/18/2023 [facility] Work Phone: Comment on above: 1 Occurrences starti ng 05/19/2022 until 06/18/2023 Human papilloma viru s 16+18+31+33+35+39+45+51+ 52+56+58+59+66+68 DNA [Presence] in Cervix by Probe with signal amplification [facility] End: 07-21-2024 MG Breast - right Diagnostic for implant [facility] RIGHT Radiology Routine Malignant neoplasm of upper-outer quadrant of left breast in female, estrogen receptor negative (HCC) (HCC) 1 Occurrences starting 06/22/2023 until 07/21/2024 [facility] Work Phone: Comment on above: 1 Occurrences starti ng 06/22/2023 until 07/21/2024 Patient Education [facility] Work Phone: Patient referral [facility] Work Phone: XR Foot - left GE 3 Views [facility] XR Lumbar spine 2 or 3 Views [facility] XR Lumbar spine 2 or 3 Views [facility] XR Lumbar spine 2 or 3 Views [facility] Immunizations Immunization Date Immunization Notes Care Provider [facility] 01-22-2023 Influenza, Seasonal, Quadrivalent, Adjuvanted Bryce Hendrickson MD Work Phone: [facility] Work Phone: 01-22-2023 Pfizer COVID-19 vaccine, Fall 2022, 12 years and older, (30mcg/0.3mL) Bryce Hendrickson MD Work Phone: [facility] Work Phone: 01-22-2023 influenza virus vaccine, unspecified formulation Merced Will RN Work Phone: [facility] 05-11-2022 pneumococcal conjuga te vaccine, 13 valent Mervin Jacob Work Phone: [facility] 05-10-2022 Moderna COVID-19 Vaccine 100 MCG/0.5ML Intramuscular Suspension Mervin Jacob Work Phone: [facility] 02-25-2022 Pfizer COVID-19 Vac Bivalent 30 MCG/0.3ML Intramuscular Suspension Mervin Jacob Work Phone: [facility] 250 DO Work Phone: 02-22-2022 COVID-19 Pfizer (Pediatric) Mervin Jacob Other [facility] 01-14-2022 Fluad Quadrivalent 0 .5 ML Intramuscular Prefilled Syringe Mervin Jacob Work Phone: [facility] 01-14-2022 influenza nasal, unspecified formulation Joaquin Mercado MD Work Phone: [facility] 01-14-2022 influenza virus vaccine, split virus (incl. purified surface antigen) Mervin Jacob Other [place] [facility] Other 01-14-2022 influenza virus vaccine, unspecified formulation DO Mervin Jacob Work Phone: [facility] 01-14-2022 influenza, injectabl e, quadrivalent, preservative free Chuck Cope MD Work Phone: [facility] 01-01-2022 influenza, seasonal, injectable Mervin Jacob Work Phone: [facility] Comment on above: Series: 08-28-2021 Comirnaty 30 MCG/0.3 ML Intramuscular Suspension Mervin Jacob Work Phone: [facility] 250 DO Work Phone: 08-28-2021 COVID-19 Vaccine Pfi zer - Documentation Purposes Only Mervin Jacob Other [facility] 01-28-2021 COVID-19 mRNA, Comirnaty (Pfizer) DO Mervin Jacob Work Phone: [facility] 01-28-2021 Fluzone High-Dose Quadrivalent 0.7 ML Intramuscular Suspension Prefilled Syringe Mervin Jacob Work Phone: [facility] 07-20-2020 pneumococcal polysaccharide vaccine, 23 valent Mervin Jacob Work Phone: [facility] 07-01-2020 COVID-19 mRNA, Comirnaty (Pfizer) DO Mervin Jacob Work Phone: [facility] 06-10-2020 COVID-19 mRNA, Comirnaty (Pfizer) DO Mervin Jacob Work Phone: [facility] 05-27-2020 zoster vaccine recombinant Mervin Jacob Work Phone: [facility] 05-27-2020 zoster vaccine, live Benjami n Nidia Other [facility] 02-28-2020 zoster vaccine recombinant Mervin Jacob Work Phone: [facility] 02-28-2020 zoster vaccine, live Benjami n Nidia Other [facility] 02-01-2020 influenza, injectabl e, quadrivalent, preservative free DO Mervin Ball Work Phone: [facility] 01-31-2020 influenza nasal, unspecified formulation Joaquin Mercado MD Work Phone: [facility] 01-31-2020 influenza virus vaccine, split virus (incl. purified surface antigen) Mervin Ball Other [facility] [employer] Other 01-31-2020 influenza virus vaccine, unspecified formulation DO Mervin Ball Work Phone: [facility] 01-29-2020 influenza, high dose seasonal, preservative-free Mervin E Ball Work Phone: [facility] 01-29-2020 Influenza, High-dose Seasonal, Quadrivalent, Preservative Free Chuck Cope MD Work Phone: [facility] 02-17-2019 influenza, injectabl e, quadrivalent, preservative free Mervin E Ball Work Phone: [facility] 02-02-2019 influenza nasal, unspecified formulation Joaquin Mercado MD Work Phone: [facility] 02-02-2019 influenza virus vaccine, split virus (incl. purified surface antigen) Mervin Jacob Other [facility] [employer] Other 02-02-2019 influenza virus vaccine, unspecified formulation DO Mervin Ball Work Phone: [facility] 02-17-2018 influenza, high dose seasonal, preservative-free Mervin E Ball Work Phone: [facility] 01-31-2018 influenza virus vaccine, unspecified formulation Mervin E Ball Work Phone: [place] [address] DO Work Phone: 06-09-2017 influenza, injectabl e, quadrivalent, preservative free Mervin E Ball Work Phone: [facility] 02-16-2017 influenza, injectabl e, quadrivalent, preservative free Mervin E Ball Work Phone: [facility] 02-10-2017 influenza, injectabl e, quadrivalent, preservative free Chuck Cope MD Work Phone: [facility] 02-08-2017 pneumococcal polysaccharide vaccine, 23 valent Mervin E Nidia Work Phone: [facility] 02-02-2017 influenza, high dose seasonal, preservative-free Mervin E Nidia Work Phone: [facility] 01-01-2017 influenza virus vaccine, unspecified formulation Mervin E Nidia Work Phone: [facility] 600 DO Work Phone: 12-30-2016 pneumococcal conjuga te vaccine, 13 valent Mervin Jacob Work Phone: [facility] 05-05-2016 influenza nasal, unspecified formulation Joaquin Mercado MD Work Phone: [facility] 05-05-2016 influenza virus vaccine, split virus (incl. purified surface antigen) Mervin Nidia Other [facility] [employer] Other 05-05-2016 influenza virus vaccine, unspecified formulation DO Mervin Jacob Work Phone: [facility] 05-05-2016 influenza, injectabl e, quadrivalent, preservative free Mervin E Nidia Work Phone: [facility] 04-02-2016 influenza, injectabl e, quadrivalent, contains preservative Mervin E Nidia Work Phone: [facility] 04-02-2016 influenza, injectabl e, quadrivalent, preservative free Joaquin Mercado MD Work Phone: [facility] 12-02-2015 influenza virus vaccine, unspecified formulation Mervin E Nidia Work Phone: [facility] 600 DO Work Phone: 09-16-2015 pneumococcal conjuga te vaccine, 13 valent Mervin Nidia Other [facility] 09-16-2015 pneumococcal Conjuga te, unspecified formulation; Translations: [Need for prophylactic vaccination against Streptococcus pneumoniae (pneumococcus)] Mervin Jacob Other [facility] [employer] Other 05-03-2015 pneumococcal polysaccharide vaccine, 23 valent Mervin Jacob Work Phone: [facility] 01-31-2015 influenza virus vaccine, unspecified formulation Mervin Jacob Work Phone: [facility] 600 DO Work Phone: 02-21-2014 pneumococcal polysaccharide vaccine, 23 valent Mervin Jacob Other [facility] 02-21-2014 tetanus and diphther ia toxoids, adsorbed, preservative free, for adult use (5 Lf of tetanus toxoid and 2 Lf of diphtheria toxoid) Mervin Jacob Other [facility] 01-31-2014 influenza virus vaccine, unspecified formulation Mervin Jacob Work Phone: [facility] 600 DO Work Phone: 01-31-2014 zoster vaccine, live Joaquin lopez MD Work Phone: [facility] 05-03-2013 pneumococcal polysaccharide vaccine, 23 valent Mervin Jacob Work Phone: [facility] 01-31-2013 pneumococcal polysaccharide vaccine, 23 valent eMrvin Jacob Work Phone: [facility] 06-27-2011 influenza virus vaccine, unspecified formulation Joaquin Mercado MD Work Phone: [facility] 06-27-2011 pneumococcal polysaccharide vaccine, 23 valent Joaquin Mercado MD Work Phone: [facility] 05-03-2010 influenza, high dose seasonal, preservative-free Bryce Hendrickson MD Work Phone: [facility] Work Phone: 05-03-2009 influenza, high dose seasonal, preservative-free Bryce Hendrickson MD Work Phone: [facility] Work Phone: 05-03-2006 influenza virus vaccine, unspecified formulation Bryce Hendrickson MD Work Phone: [facility] Work Phone: influenza virus vaccine, unspecified formulation Mervin Galo Nidia Work Phone: -[facility] 600 DO Work Phone: Comment on above: 2010 2009 2006 Payers Date Payer Category Payer Self-pay [id number] 2018 Private Health Insurance [id number] 2014 Medicare [id number] 1959 Medicare [id number] 1959 Private Health Insurance [facility] [id number] 1949 Unknown [id number] 2.840.1.880905.3.579.2.356 1949 Unknown [id number] 2.16840.1.141658.3.579.2.356 1949 Unknown [id number] 2.840.1.072723.3.579.2.593 1949 Unknown [id number] 2.16.840.1.334305.3.579.2.593 1949 Unknown [id number] 2.16.840.1.049228.3.579.2.593 1949 Unknown [id number] 2.16.840.1.125345.3.579.2.593 1949 Unknown [id number] 2.16.840.1.787259.3.579.2.593 1949 Unknown [id number] 2.16.840.1.293318.3.579.2.593 1949 Unknown [id number] 2.16.840.1.154479.3.579.2.1068 1949 Unknown [id number] 2.16.840.1.227966.3.579.2.1068 1949 Unknown [id number] 2.16.840.1.585822.3.579.2.732 1949 Unknown [id number] 2.16.840.1.810059.3.579.2.1246 1949 Unknown [id number] 2.16.840.1.095565.3.579.2.1246 1949 Unknown [id number] 2.16.840.1.462892.3.579.2.1246 1949 Unknown [id number] 2.16.840.1.869537.3.579.2.1244 1949 Unknown [id number] 2.16.840.1.728028.3.579.2.1259 1949 Unknown [id number] 2.16.840.1.297976.3.579.2.1259 1949 Unknown [id number] 2.16.840.1.623051.3.579.2.1259 1949 Unknown [id number] 2.16.840.1.454069.3.579.2.1259 Medicare [id number] Unknown Regular Insurance [id number] Unknown Unknown [id number] Unknown [id number] 2.16.840.1.872573.3.579.2.531 Unknown [id number] 2.16.840.1.518846.3.579.2.531 Unknown [id number] 2.16840.1.165528.3.579.2.531 Unknown [id number] 2.16.840.1.872822.3.579.2.531 Unknown [id number] 2.16.840.1.717992.3.579.2.531 Unknown [id number] 2.16.840.1.330824.3.579.2.531 Unknown [id number] 2.16.840.1.276669.3.579.2.531 Unknown [id number] 2.16.840.1.285420.3.579.2.531 Unknown [id number] 2.16.840.1.168560.3.579.2.531 Unknown [id number] 2.16.840.1.165873.3.579.2.531 Unknown [id number] 2.16.840.1.740558.3.579.2.531 Social History Date Type Detail Facility Start: 09-24-2021 End: 10-05-2022 Tobacco smoking status NHIS Never smoked tobacco (finding) [facility] Start: 1950 Sex Assigned At Female F [facility] Start: 03-02-2023 End: 03-28-2024 Sex Assigned At [facility] Start: 03-02-2023 End: 03-28-2024 Alcohol use Alcohol use [facility] Start: 03-30-2012 End: 10-05-2022 Tobacco use and exposure Smokeless tobacco non-user [facility] Start: 04-08-2021 End: 03-28-2024 Alcohol intake Current drinker of alcohol (finding) [facility] Start: 06-03-2020 Alcohol Comment very seldom [facility] Start: 1950 Sex Assigned At Not on file [facility] Start: 03-02-2023 End: 03-18-2023 Alcohol intake Not Asked [facility] Work Phone: Start: 03-02-2023 Alcohol Comment social [facility] Work Phone: Start: 02-20-2023 End: 07-15-2023 Exposure to SARS-CoV-2 (event) Not sure [facility] Start: 03-02-2023 Gender identity Identifies as female gender (finding) [facility] Work Phone: Adult Depression Screening Assessment 0 [facility] Start: 07-15-2023 Alcohol Comment rarely [facility] Work Phone: Start: 10-05-2022 Alcohol Comment caffeine intak e: 2-3 cups per day of diet coke [facility] Start: 10-08-2023 Alcoholic beverage intake Ex-drinker (finding) [facility] Medical Equipment Procedure Code Equipment Code Equipment Origin al Text Equipment Identifier Dates Aus-Bk-S-Kind Implant - [id number] Start: 06-26-2011 Comment on above: Description: Second [place] CPX3 Med Height Tissue Brass Molder Lwl-Jx-C-Kind Implant - [id number] Start: 04-08-2012 Comment on above: Description: Skyla donovan Silicone Filled Breast Implant Exp Tiss 550ml Styl 7200 Med - [id number] Start: 10-21-2012 Imp Brst 700ml Styl 20 Smth - [id number] Start: 03-17-2013 Comment on above: Description: smooth round high profile Spinal fusion graft kit [id number] FDA Start: 03-30-2022 Bone-screw internal spinal fixation system, non-sterile [id number] FDA Start: 03-30-2022 Bone-screw internal spinal fixation system, non-sterile [id number] FDA Start: 03-30-2022 Polymeric spinal fusion cage, non-sterile [id number] FDA Start: 03-30-2022 Bone-screw internal spinal fixation system, non-sterile [id number] FDA Start: 03-30-2022 Bone-screw internal spinal fixation system, non-sterile [id number] FDA Start: 03-30-2022 Spinal fusion graft kit [id number] FDA Start: 04-13-2023 Polymeric spinal fusion cage, sterile [id number] FDA Start: 04-13-2023 Yzj-Vb-W-Kind Implant - [id number] Start: 04-08-2012 Comment on above: Description: Skyla donovan Silicone Filled Breast Implant Imp Brst 375ml Styl 20 Smth - [id number] Start: 03-17-2013 Comment on above: Description: smooth round high profile Goals Date Patient Goal Desired Activity /State Functional Status Date Assessment Result Facility 04-20-2023 Functional status Patient at Baseline [facility] Work Phone: 04-15-2023 Functional status Patient is Pro gressing Toward Baseline [facility] Work Phone: 04-01-2022 Functional status Patient is Pro gressing Toward Baseline [facility] Work Phone: 10-09-2021 Functional status Patient is Pro gressing Toward Baseline [facility] Work Phone: Mental Status Date Assessment Result Facility 04-20-2023 Cognitive function Cognitive Sta tus Patient at Baseline [facility] Work Phone: 04-15-2023 Cognitive function Cognitive Sta tus Patient at Baseline [facility] Work Phone: 04-01-2022 Cognitive function Cognitive Sta tus Patient at Baseline [facility] Work Phone: 10-09-2021 Cognitive function Cognitive Sta tus Patient at Baseline [facility] Work Phone: Clinical Notes 06-19-2020 to 03-28-2024 Chuck Cope MD - 03/28/2024 9:00 AM ESTAddendum Note - Michelle Abarca - 03/28/2024 9:00 AM ESTAddendum Note - Michelle Abarca - 03/28/2024 9:00 AM ESTHianna Cope MD - 03/08/2024 9:20 AM EST Note Date & Type Note Facility 03-28-2024 History of Present illness Narrative Subjective Patient ID: Renuka Owen is a 73 y.o. female who presents for No chief complaint on file. Sinus films showed sinusitis Family History Problem Relation Name Age of Onset Breast cancer Mother Alejandra Redganga Glaucoma Mother Alejandra Redinger Cancer Mother Alejandra Wu Hearing loss Mother Alejandra Wu Testicular cancer Father Gadiel Pink Cancer Father Gadiel Pink Leukemia Brother Active Ambulatory Problems Diagnosis Date Noted Primary open angle glaucoma (POAG) of both eyes, mild stage (CMS/HCC) 02/26/2023 PCO (posterior capsular opacification), bilateral 02/26/2023 Keratoconjunctivitis sicca of both eyes not specified as Sjogren's 06/09/2023 Resolved Ambulatory Problems Diagnosis Date Noted Dry eyes 02/26/2023 Past Medical History: Diagnosis Date Arthritis Breast cancer (CMS/HCC) 2012 Cataract Cholelithiasis 1991 Chronic nonseasonal allergic rhinitis due to pollen Chronic tension headaches Dehydration GERD with esophagitis Glaucoma (CMS/HCC) HTN (hypertension) (CMS/HCC) Lumbar spondylosis Migraine (CMS/HCC) Pain management 10/2015 Past Surgical History: Procedure Laterality Date BACK SURGERY 1982 BREAST RECONSTRUCTION 2011 Procedure:post mastectomy radiation planned;Disease:left breast cancer CATARACT EXTRACTION 10/2021 and 12/2021 CHOLECYSTECTOMY 1976 Cholelithiasis HYSTERECTOMY 1991 KNEE ARTHROPLASTY Left 01/2007 Dr. Miranda KNEE ARTHROPLASTY 01/2007 Dr. Miranda LUMBAR DISCECTOMY 10/08/2021 L4 Sx LUMBAR FUSION 04/01/2022 L4-L5 MASTECTOMY Left 2011 MA ARTHROSCOPY KNEE DIAGNOSTIC W/WO SYNOVIAL BX SPX 1994 MA ARTHROSCOPY KNEE DIAGNOSTIC W/WO SYNOVIAL BX SPX Right 1984 DR. Driver ROTATOR CUFF REPAIR Left 08/02/2017 Dr. Hankins TONSILLECTOMY TUMOR EXCISION 06/19/2020 presacral tumor removed Allergies Allergen Reactions Penicillins Other Reaction(s): Unknown Atorvastatin Hives and Rash Current Outpatient Medications on File Prior to Visit Medication Sig Dispense Refill baclofen (Lioresal) 20 MG tablet Take 20 mg by mouth in the morning and 20 mg in the evening and 20 mg before bedtime. calcium carbonate (Calcium 600) 600 MG tablet Take 600 mg by mouth in the morning and 600 mg in the evening. Take with meals. carvedilol (Coreg) 6.25 MG tablet Take 6.25 mg by mouth in the morning and 6.25 mg in the evening. Take with meals. cetirizine (ZyrTEC) 10 MG tablet Take 10 mg by mouth. cholecalciferol (Vitamin D-3) 25 MCG (1000 UT) capsule Take 1,000 Units by mouth in the morning. fluticasone (Cutivate) 0.05 % cream Apply topically 2 (two) times a day. fluticasone (Flonase) 50 MCG/ACT nasal spray Administer 1 spray into each nostril in the morning. Shake gently. Before first use, prime pump. After use, clean tip and replace cap.. gabapentin (Neurontin) 300 MG capsule Take 300 mg by mouth in the morning and 300 mg in the evening and 300 mg before bedtime. hydroCHLOROthiazide (HYDRODiuril) 25 MG tablet Take 25 mg by mouth in the morning. [] levoFLOXacin (Levaquin) 500 MG tablet Take 1 tablet (500 mg) by mouth Daily for 14 days 14 tablet 0 omeprazole (PriLOSEC) [address] capsule Take 20 mg by mouth in the morning. Take before meals. Do not crush or chew. . torsemide (Demadex) 10 MG tablet Take 10 mg by mouth Daily traMADol (Ultram) 50 MG tablet Take 50 mg by mouth. No current facility-administered medications on file prior to visit. Objective Last Recorded Vitals There were no vitals filed for this visit. ENT Physical Exam Constitutional Appearance: patient appears well-developed, well-nourished and well-groomed, Communication/Voice: communication appropriate for developmental age; vocal quality normal; Assessment/Plan Diagnoses and all orders for this visit: Chronic frontal sinusitis Pt has sx c/w chronic (>12 weeks) sinusitis. I will tx with a one mo aggressive sinus regimen, including 4 weeks abx, nasal steroids, prednisone, antihistamines, and BID saline irrigations. If sinus sx persist, and pt has followed regimen, in one month I will obtain an IG CT sinus to evaluate for surgical pathology and plan surgical tx. documented in this encounter [facility] 03-28-2024 Miscellaneous Notes Addended by: MICHELLE ABARCA on: 03/28/2024 01:21 PM Modules accepted: Orders documented in this encounter [facility] 03-28-2024 Note Addended by: MICHELLE ABARCA on: 03/28/2024 01:21 PM Modules accepted: Orders [facility] Work Phone: 03-28-2024 Note Addended by: MICHELLE ABARCA on: 03/28/2024 01:21 PM Modules accepted: Orders [facility] Work Phone: 03-08-2024 History of Present illness Narrative Subjective Patient ID: Renuka Owen is a 73 y.o. female who presents for Allergic Rhinitis (Nasal polyp. ) and Tinnitus Pt reports a many month h/o rhinorrhea, scratchy throat, headache and nasal pressure. No tx yet. Pt had similar sx 3 years ago and was tx with 14 days levaquin and prednisone, which resolved her sx. Was also on saline rinses, zyrtec and flonase. Pt also a tapping sound intermittently in her head. No sx for 10 days. Family History Problem Relation Name Age of Onset Breast cancer Mother Alejandra Redinger Glaucoma Mother Alejandra Redinger Cancer Mother Alejandra Wu Hearing loss Mother Alejandra Wu Testicular cancer Father Gadiel Pink Cancer Father Gadiel Pink Leukemia Brother Active Ambulatory Problems Diagnosis Date Noted Primary open angle glaucoma (POAG) of both eyes, mild stage (CMS/HCC) 02/26/2023 PCO (posterior capsular opacification), bilateral 02/26/2023 Keratoconjunctivitis sicca of both eyes not specified as Sjogren's 06/09/2023 Resolved Ambulatory Problems Diagnosis Date Noted Dry eyes 02/26/2023 Past Medical History: Diagnosis Date Arthritis Breast cancer (CMS/HCC) 2012 Cataract Cholelithiasis 1991 Chronic nonseasonal allergic rhinitis due to pollen Chronic tension headaches Dehydration GERD with esophagitis Glaucoma (CMS/HCC) HTN (hypertension) (CMS/HCC) Lumbar spondylosis Migraine (CMS/HCC) Pain management 10/2015 Past Surgical History: Procedure Laterality Date BACK SURGERY 1982 BREAST RECONSTRUCTION 2011 Procedure:post mastectomy radiation planned;Disease:left breast cancer CATARACT EXTRACTION 10/2021 and 12/2021 CHOLECYSTECTOMY 1976 Cholelithiasis HYSTERECTOMY 1991 KNEE ARTHROPLASTY Left 01/2007 Dr. Miranda KNEE ARTHROPLASTY 01/2007 Dr. Miranda LUMBAR DISCECTOMY 10/08/2021 L4 Sx LUMBAR FUSION 04/01/2022 L4-L5 MASTECTOMY Left 2011 MA ARTHROSCOPY KNEE DIAGNOSTIC W/WO SYNOVIAL BX SPX 1995 MA ARTHROSCOPY KNEE DIAGNOSTIC W/WO SYNOVIAL BX SPX Right 1984 DR. Driver ROTATOR CUFF REPAIR Left 08/02/2017 Dr. Hankins TONSILLECTOMY TUMOR EXCISION 06/19/2020 presacral tumor removed Allergies Allergen Reactions Penicillins Other Reaction(s): Unknown Atorvastatin Hives and Rash Current Outpatient Medications on File Prior to Visit Medication Sig Dispense Refill baclofen (Lioresal) 20 MG tablet Take 20 mg by mouth in the morning and 20 mg in the evening and 20 mg before bedtime. calcium carbonate (Calcium 600) 600 MG tablet Take 600 mg by mouth in the morning and 600 mg in the evening. Take with meals. carvedilol (Coreg) 6.25 MG tablet Take 6.25 mg by mouth in the morning and 6.25 mg in the evening. Take with meals. cetirizine (ZyrTEC) 10 MG tablet Take 10 mg by mouth. cholecalciferol (Vitamin D-3) 25 MCG (1000 UT) capsule Take 1,000 Units by mouth in the morning. fluticasone (Cutivate) 0.05 % cream Apply topically 2 (two) times a day. fluticasone (Flonase) 50 MCG/ACT nasal spray Administer 1 spray into each nostril in the morning. Shake gently. Before first use, prime pump. After use, clean tip and replace cap.. gabapentin (Neurontin) 300 MG capsule Take 300 mg by mouth in the morning and 300 mg in the evening and 300 mg before bedtime. hydroCHLOROthiazide (HYDRODiuril) 25 MG tablet Take 25 mg by mouth in the morning. omeprazole (PriLOSEC) [address] capsule Take 20 mg by mouth in the morning. Take before meals. Do not crush or chew. . torsemide (Demadex) 10 MG tablet Take 10 mg by mouth Daily traMADol (Ultram) 50 MG tablet Take 50 mg by mouth. [DISCONTINUED] latanoprost (Xalatan) 0.005 % ophthalmic solution 1 drop at bedtime. [DISCONTINUED] methylPREDNISolone (Medrol) 4 MG tablet Take 4 mg by mouth in the morning. No current facility-administered medications on file prior to visit. Objective Last Recorded Vitals Vitals: 03/08/24 0909 BP: 97/59 ENT Physical Exam Constitutional Appearance: patient appears well-developed, well-nourished and well-groomed, Communication/Voice: communication appropriate for developmental age; vocal quality normal; Ear Ear Canals: right ear canal normal; left ear canal normal; Tympanic Membranes: right tympanic membrane normal; left tympanic membrane normal; Nose External Nose: nares patent bilaterally; external nose normal; Internal Nose: nasal mucosa normal; septum normal; bilateral inferior turbinates normal; Assessment/Plan Diagnoses and all orders for this visit: Chronic sinusitis, unspecified location Similar sx to thos pt had 3 years ago. I will tx with the same regimen documented in this encounter [facility] 01-06-2024 Telephone encounter Note Pt calls to ask when her mammogram is due. Pt's record reviewed. Last Mamm done on 02/08/23 @ [facility]. 12 month f/u recommended. Order for Mamm faxed to [facility] on 06/22/23. Pt notified of the above. Advised she call [facility] to schedule. Pt verbalizes understanding and agrees. Merced Will RN [facility] Work Phone: 01-06-2024 Miscellaneous Notes Pt calls to ask when her mammogram is due. Pt's record reviewed. Last Mamm done on 02/08/23 @ [facility]. 12 month f/u recommended. Order for Mamm faxed to [facility] on 06/22/23. Pt notified of the above. Advised she call [facility] to schedule. Pt verbalizes understanding and agrees. [place] Will RN documented in this encounter [facility] 12-21-2023 Procedure note [facility] 09-07-2023 Procedure note [facility] 07-15-2023 History of Present illness Narrative Ray Owen is a 72 y.o. female Chief Complaint Follow-up HPI Patient is in the office for follow-up for mild LV systolic dysfunction and moderate mitral regurgitation with left bundle branch block. Since her last visit she remained totally asymptomatic and functional class I. Denies any palpitations orthopnea PND or lower extremity edema and no chest pain. Her medical therapy has been well-tolerated physical examination was unremarkable, lab data from PCP done recently were requested. The pathophysiology for cardiovascular disease was explained to the patient in details. She understands. ASSESSMENT AND PLAN: 1. Hypertension, currently under control. On Coreg and enalapril 2. Overweight, encouraged cutting back calorie intake. She has lost 10 pounds since her last visit 3. Chronic left bundle branch block, may be contributing to LV systolic dysfunction 4. moderate mitral rotation confirmed by cardiac MRI March 2023. Ejection fraction 53%. Echocardiogram January 2023 revealed similar findings. Follow-up echocardiogram will be done annually. 5. Mild LV systolic dysfunction, ejection fraction 53%. Coreg and enalapril will be left as it is for the time being. She is compensated Bryce Hendrickson MD, [facility] Review of Systems All other systems reviewed and are negative. Vitals: 07/15/23 1039 BP: 108/74 BP Location: Right arm Patient Position: Sitting Pulse: 64 Weight: 71.2 kg (157 lb) Height: 1.549 m (5' 1 ) Objective Physical Exam Constitutional: Appearance: Normal appearance. HENT: Nose: Nose normal. Neck: Vascular: No carotid bruit. Cardiovascular: Rate and Rhythm: Normal rate. Pulses: Normal pulses. Heart sounds: Normal heart sounds. Pulmonary: Effort: Pulmonary effort is normal. Abdominal: General: Bowel sounds are normal. Palpations: Abdomen is soft. Musculoskeletal: General: Normal range of motion. Cervical back: Normal range of motion. Right lower leg: No edema. Left lower leg: No edema. Skin: General: Skin is warm and dry. Neurological: General: No focal deficit present. Mental Status: She is alert. Psychiatric: Mood and Affect: Mood normal. Behavior: Behavior normal. Thought Content: Thought content normal. Judgment: Judgment normal. Allergies Penicillins, Rvtvsdr-lhi-soj reductase inhibitors, and Atorvastatin Current Medications Current Outpatient Medications: aspirin 81 mg EC tablet, Take 1 tablet (81 mg) by mouth once daily., Disp: , Rfl: baclofen (Lioresal) 20 mg tablet, Take 1 tablet (20 mg) by mouth once daily as needed., Disp: , Rfl: carvedilol (Coreg) 6.25 mg tablet, Take 1 tablet (6.25 mg) by mouth 2 times a day with meals., Disp: , Rfl: enalapril (Vasotec) 2.5 mg tablet, Take 1 tablet (2.5 mg) by mouth 2 times a day., Disp: 180 tablet, Rfl: 3 fluticasone (Flonase) 50 mcg/actuation nasal spray, As directed, Disp: , Rfl: gabapentin (Neurontin) 300 mg capsule, Take 1 capsule (300 mg) by mouth. 1 in AM, 2 at noon, 3 at bedtime, Disp: , Rfl: loratadine (Claritin) 10 mg tablet, Take 1 tablet (10 mg) by mouth once daily., Disp: , Rfl: omeprazole (PriLOSEC) [address] capsule, Take 1 capsule (20 mg) by mouth once daily in the morning. Take before meals., Disp: , Rfl: torsemide (Demadex) 10 mg tablet, Take 1 tablet (10 mg) by mouth once daily., Disp: , Rfl: traMADol (Ultram) 50 mg tablet, Take 1 tablet (50 mg) by mouth 2 times a day as needed., Disp: , Rfl: Assessment/Plan 1. Mitral valve insufficiency, unspecified etiology Follow Up In Cardiology Follow Up In Cardiology Transthoracic Echo Complete 2. Essential hypertension 3. Left ventricular systolic dysfunction 4. BMI 29.0-29.9,adult 5. Never smoked tobacco Scribe Attestation By signing my name below, Tess Warner LPN, Scribe attest that this documentation has been prepared under the direction and in the presence of Bryce Hendrickson MD. Provider Attestation - Scribe documentation All medical record entries made by the Scribe were at my direction and personally dictated by me. I have reviewed the chart and agree that the record accurately reflects my personal performance of the history, physical exam, discussion and plan. documented in this encounter [facility] Work Phone: 07-15-2023 Instructions Tess Holcomb LPN - 07/15/2023 10:30 AM EDT Please bring all medicines, vitamins, and herbal supplements with you when you come to the office. Prescriptions will not be filled unless you are compliant with your follow up appointments or have a follow up appointment scheduled as per instruction of your physician. Refills should be requested at the time of your visit. BMI was above normal measurement. Current weight: 71.2 kg (157 lb) Weight change since last visit (-) denotes wt loss 1 lbs Weight loss needed to achieve BMI 25: 25 Lbs Weight loss needed to achieve BMI 30: -1.4 Lbs Provided instructions on dietary changes Provided instructions on exercise. documented in this encounter [facility] Work Phone: 06-22-2023 Note HNO ID: [id number] Author: JOAQUIN MERCADO MD Service: ? Author Type: Physician Type: Progress Notes Filed: 06/23/2023 07:33 Note Text: PATIENT NAME: Renuka Owen DATE: 06/22/2023 PRIMARY CARE PHYSICIAN: Dr. Mervin Jacob OTHER PHYSICIANS: Dr. Coley, Dr. Artur Sutherland, Dr. Snyder, Dr. Ortega Portions of this encounter note have been copied from the note from 05/19/2022 and has been updated where appropriate, and reflect my current medical decision making from today. CC: This is a 72 year old female with a history of breast cancer, seen for scheduled follow-up. INTERIM HISTORY: Since the patient's last visit here she underwent spinal surgery per Dr. Moreau for her chronic lower back pain, and her pain has improved. However, she continues to have significant neuropathic symptoms of her feet. Predominantly she has shooting pain intermittently down her legs to her toes bilaterally. Her feet also remain numb. On her current dose of Neurontin her symptoms have slowly worsened. Otherwise no significant medical changes. No changes in her right breast or left breast implant. No recurrent chest pain or other signs of pleurisy. MEDICATIONS: gabapentin (NEURONTIN) 300 mg capsule TAKE 1 CAPSULE BY MOUTH IN THE MORNING AND 2 CAPSULES IN THE AFTERNOON AND AT BEDTIME ALLERGY RELIEF, CETIRIZINE, 10 mg tablet traMADol (ULTRAM) 50 mg tablet every 6 hours as needed. baclofen (LIORESAL) 20 mg tablet Take 1 tablet by mouth daily at bedtime. hydroCHLOROthiazide (HYDRODIURIL, ESIDRIX) 25 mg tablet Take 25 mg by mouth once daily. iv contrast (will be provided with radiology test) MRI Pelvis Inject, intravenously, once for 1 dose. No IV access, insert saline lock prior to the beginning of sedation, infusion, injection of imaging exam. Discontinue saline lock post exam. If Pt has a central line or IVAD, may access for administration according to line specific nursing protocol. Once exam is complete flush line and de-access according to line specific nursing protocol in the MR contrast administration guidelines link. (Patient not taking: Reported on 05/19/2022) latanoprost (XALATAN) 0.005 % ophthalmic solution INSTILL 1 DROP INTO BOTH EYES EVERY DAY DIRECTED omeprazole (PRILOSEC) 20 mg capsule Take 20 mg by mouth once daily. carvedilol (COREG) 6.25 mg tablet Take 6.25 mg by mouth twice daily with meals. fluticasone (FLONASE) 50 mcg/actuation nasal spray 2 Sprays once daily. ALLERGIES: Penicillins and Lipitor [Atorvastatin Calcium] PAST MEDICAL HISTORY: PAST MEDICAL HISTORY Diagnosis Date Breast cancer, left breast (HCC) Bundle branch block left 05/03/2007 Hypercholesteremia Hypertension Mild depression Osteoarthritis 05/03/1989 PONV (postoperative nausea and vomiting) S/P left mastectomy PAST SURGICAL HISTORY: PAST SURGICAL HISTORY Procedure Laterality Date ARTHRP KNE CONDYLEANDPLATU MEDIALANDLAT COMPARTMENTS 05/03/2006 bilateral BACK SURGERY HX 05/03/1995 BREAST BIOPSY CORE 03/11/2011 left breast BREAST RECONSTRUC W TISS EXPANDR 06/26/2011 left breast CHOLECYSTECTOMY 05/03/1975 HYSTERECTOMY HX 05/03/1989 MASTECTOMY, SIMPLE, COMPLETE 06/26/2011 skin-sparing left breast with ALND PAST SURGICAL HISTORY OF Left 2018 rotator cuff surgery TUBAL LIGATION, REVIEW OF SYSTEMS: General: No weight loss, malaise or fevers. HEENT: Negative for frequent or significant headaches. No changes in hearing or vision, no nose bleeds or other nasal problems Respiratory: Negative for cough, wheezing or shortness of breath. Cardiovascular: Negative for chest pain, leg swelling or palpitations. GI: Negative for abdominal discomfort, blood in stools or black stools or change in bowel habits : No history of dysuria, frequency or incontinence Musculoskeletal: Negative for: joint pain or swelling, back pain and muscle pain Skin: Negative for lesions, rash, and itching. Hematology/Lymphology: Negative for prolonged bleeding, bruising easily or swollen nodes. Neuro: No history of paralysis, seizures or tremors. Fainting spell Positive neuropathy- See HPI. PHYSICAL EXAM: Vitals: BP 111/57 Pulse 67 Temp 36.4 ?C (97.6 ?F) (Temporal) Resp 16 Ht 157.5 cm (5' 2.01 ) Wt 70.6 kg (155 lb 10.3 oz) SpO2 96% BMI 28.46 kg/m? ECOG 1 Exam limited to gross visualization where appropriate due to COVID-19. Gen.: This is an age-appropriate patient in no acute distress. Head: Appears atraumatic with no visible lesions. Eyes: Pupils equally round and reactive to light, extraocular muscles are intact. Neck: Supple. Mouth: Mucous membranes appeared to be moist. Respiratory: Appears to be respiring comfortably. Neurologic: Nonfocal to gross visualization. Alert and oriented ?3. Psychiatric: No evidence of inappropriate anxiety or depression. Skin: Visible areas of skin without rash, lesions, wounds or petechiae. Lung sounds clear through (more content not included)... [facility] 06-22-2023 History of Present illness Narrative PATIENT NAME: Renuka Owen DATE: 06/22/2023 PRIMARY CARE PHYSICIAN: Dr. Mervin Jacob OTHER PHYSICIANS: Dr. Coley, Dr. Artur Sutherland, Dr. Snyder, Dr. Ortega Portions of this encounter note have been copied from the note from 05/19/2022 and has been updated where appropriate, and reflect my current medical decision making from today. CC: This is a 72 year old female with a history of breast cancer, seen for scheduled follow-up. INTERIM HISTORY: Since the patient's last visit here she underwent spinal surgery per Dr. Moreau for her chronic lower back pain, and her pain has improved. However, she continues to have significant neuropathic symptoms of her feet. Predominantly she has shooting pain intermittently down her legs to her toes bilaterally. Her feet also remain numb. On her current dose of Neurontin her symptoms have slowly worsened. Otherwise no significant medical changes. No changes in her right breast or left breast implant. No recurrent chest pain or other signs of pleurisy. MEDICATIONS: gabapentin (NEURONTIN) 300 mg capsule TAKE 1 CAPSULE BY MOUTH IN THE MORNING AND 2 CAPSULES IN THE AFTERNOON AND AT BEDTIME ALLERGY RELIEF, CETIRIZINE, 10 mg tablet traMADol (ULTRAM) 50 mg tablet every 6 hours as needed. baclofen (LIORESAL) 20 mg tablet Take 1 tablet by mouth daily at bedtime. hydroCHLOROthiazide (HYDRODIURIL, ESIDRIX) 25 mg tablet Take 25 mg by mouth once daily. iv contrast (will be provided with radiology test) MRI Pelvis Inject, intravenously, once for 1 dose. No IV access, insert saline lock prior to the beginning of sedation, infusion, injection of imaging exam. Discontinue saline lock post exam. If Pt has a central line or IVAD, may access for administration according to line specific nursing protocol. Once exam is complete flush line and de-access according to line specific nursing protocol in the MR contrast administration guidelines link. (Patient not taking: Reported on 05/19/2022) latanoprost (XALATAN) 0.005 % ophthalmic solution INSTILL 1 DROP INTO BOTH EYES EVERY DAY DIRECTED omeprazole (PRILOSEC) 20 mg capsule Take 20 mg by mouth once daily. carvedilol (COREG) 6.25 mg tablet Take 6.25 mg by mouth twice daily with meals. fluticasone (FLONASE) 50 mcg/actuation nasal spray 2 Sprays once daily. ALLERGIES: Penicillins and Lipitor [Atorvastatin Calcium] PAST MEDICAL HISTORY: PAST MEDICAL HISTORY Diagnosis Date Breast cancer, left breast (HCC) Bundle branch block left 05/03/2007 Hypercholesteremia Hypertension Mild depression Osteoarthritis 05/03/1989 PONV (postoperative nausea and vomiting) S/P left mastectomy PAST SURGICAL HISTORY: PAST SURGICAL HISTORY Procedure Laterality Date ARTHRP KNE CONDYLE&PLATU MEDIAL&LAT COMPARTMENTS 05/03/2006 bilateral BACK SURGERY HX 05/03/1995 BREAST BIOPSY CORE 03/11/2011 left breast BREAST RECONSTRUC W TISS EXPANDR 06/26/2011 left breast CHOLECYSTECTOMY 05/03/1975 HYSTERECTOMY HX 05/03/1989 MASTECTOMY, SIMPLE, COMPLETE 06/26/2011 skin-sparing left breast with ALND PAST SURGICAL HISTORY OF Left 2018 rotator cuff surgery TUBAL LIGATION, REVIEW OF SYSTEMS: General: No weight loss, malaise or fevers. HEENT: Negative for frequent or significant headaches. No changes in hearing or vision, no nose bleeds or other nasal problems Respiratory: Negative for cough, wheezing or shortness of breath. Cardiovascular: Negative for chest pain, leg swelling or palpitations. GI: Negative for abdominal discomfort, blood in stools or black stools or change in bowel habits : No history of dysuria, frequency or incontinence Musculoskeletal: Negative for: joint pain or swelling, back pain and muscle pain Skin: Negative for lesions, rash, and itching. Hematology/Lymphology: Negative for prolonged bleeding, bruising easily or swollen nodes. Neuro: No history of paralysis, seizures or tremors. Fainting spell Positive neuropathy- See HPI. PHYSICAL EXAM: Vitals: BP 111/57 Pulse 67 Temp 36.4 C (97.6 F) (Temporal) Resp 16 Ht 157.5 cm (5' 2.01 ) Wt 70.6 kg (155 lb 10.3 oz) SpO2 96% BMI 28.46 kg/m ECOG 1 Exam limited to gross visualization where appropriate due to COVID-19. Gen.: This is an age-appropriate patient in no acute distress. Head: Appears atraumatic with no visible lesions. Eyes: Pupils equally round and reactive to light, extraocular muscles are intact. Neck: Supple. Mouth: Mucous membranes appeared to be moist. Respiratory: Appears to be respiring comfortably. Neurologic: Nonfocal to gross visualization. Alert and oriented 3. Psychiatric: No evidence of inappropriate anxiety or depression. Skin: Visible areas of skin without rash, lesions, wounds or petechiae. Lung sounds clear throughout. Lymph Nodes: No submandibular, cervical, supraclavicular, axillary or inguinal. lymphadenopathy present Breast: Left breast implant without palpable masses and no skin changes. Right breast without masses or skin changes. No palpable axillary lymphadenopathy. Positive for lymphedema in the left arm PATHOLOGY: 06/19/2020 Presacral tumor, en bloc coccygectomy Epidermoid cyst. LABORATORY DATA: Hemoglobin (g/dL) Date Value 06/22/2023 11.4 04/08/2021 13.2 Hematocrit (%) Date Value 06/22/2023 36.0 04/08/2021 41.4 WBC (k/uL) Date Value 06/22/2023 6.43 04/08/2021 7.65 Platelet Count (k/uL) Date Value 06/22/2023 286 04/08/2021 308 RADIOLOGY/OTHER STUDIES: 02/08/2023 Diagnostic right mammogram ([facility]) Benign finding. No change from comparison. Recommend routine mammogram in 12 months. 05/10/2022 Chest CTA ([facility]) No evidence for acute pulmonary embolism, thoracic aortic aneurysm, or aortic dissection. Mild cardiomegaly with trace 3 mm thick pericardial effusion. Mosaic attenuation of the bilateral lungs reflect sequelae of reactive airway inflammation. Moderate bilateral upper and lower lung linear scar. 04/08/2020 CT abdomen/pelvis ([facility]). 6.4 x 3.3 cm soft tissue density presacral mass inseparable from the posterior margin of the rectum of unknown etiology. No other intra-abdominal abnormalities. 01/17/2018 MRI L-spine Conclusion: 1. Moderate degenerative spondylosis, discogenic changes and facet osteoarthritis resulting in central and foraminal stenosis at several levels as detailed above. (See scanned documents) 01/05/2018 Whole body bone scan 1. Increased activity right superior L2 vertebral body, MRI without and with contrast is recommended to evaluate for fracture and metastatic disease. ASSESSMENT/PLAN: 1. Malignant neoplasm of left breast in female Locally advanced left breast cancer diagnosed March 2011. ER/MA negative, HER-2 negative (triple negative). Status post preop chemotherapy with AC X 4 cycles April 2011 through May 2011. Status post left mastectomy June 2011. Final pathology revealed residual disease (ypT2, N2, M0). Postop the patient received adjuvant chemotherapy with Taxol X 05 July 2011 through September 2011. She subsequently received adjuvant chest wall radiation therapy. Status post left chest wall implant and right breast reconstruction. The patient has had no evidence of recurrent disease since. At this time we will continue routine observation. We will arrange for her yearly surveillance mammogram to be done February 2024. Return in 1 year for follow-up and labs. 2. 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 The patient was referred to [facility] colorectal surgery (Dr. Huber) and underwent surgical excision on 06/19/2020. Final pathology confirmed an epidermoid cyst with negative margins. Observation recommended. She has had no evidence of recurrence. Will monitor clinically and reevaluate as indicated if suspicious signs or symptoms develop. 3. Essential hypertension Stable on current medications, continue per PCP. 4. 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 Will adjust her current Neurontin dose to 300 mg in the morning, 600 mg in the afternoon, and 900 mg at night. If her neuropathic symptoms persist would consider referral to neurology for additional recommendations. Joaquin Mercado MD documented in this encounter [facility] 05-26-2023 Evaluation note Encounter Date Diagnosis Assessment Notes May, Lumbar stenosis with neurogenic claudication (ICD-10 - M48.062) Renuka is doing very well, her radicular symptoms are completely gone. She does feel that her leg is weak, and complains of balance issues. I am not sure if the balance issues are from the leg weakness or from cardiac medications that have been changed. We have encouraged her to follow-up with a aircraft cabin cleaner. I will send her to therapy for gait training and leg strengthening. I reviewed the x-ray of the lumbar spine showing good bony alignment good hardware placement and shared these with the patient. I will see her again in 1 month. May, History of lumbar fusion (ICD-10 - Z98.1) May, Poor balance (ICD-10 - R26.89) [facility] Other 01-05-2024 Evaluation note* Encounter Date Diagnosis Assessment Notes Treatment Notes Treatment Clinical Notes May, Acute bronchitis due to other specified organisms (ICD-10 - J20.8) Instructed to use Robitussin or Mucinex for cough, saline or Flonase NS for congestion, Tylenol for pain and fever. No improvement, call for office visit. [facility] Other 12-28-2023 Evaluation note* Encounter Date Diagnosis Assessment Notes Treatment Notes Treatment Clinical Notes Apr, Acute bilateral low back pain without sciatica (ICD-10 - M54.50) [facility] Other 12-28-2023 Evaluation note* Encounter Date Diagnosis Assessment Notes Treatment Notes Treatment Clinical Notes Apr, Primary hypertension (ICD-10 - I10) This patient is instructed to consume a healthy, low-fat, low-salt diet. They are also encouraged to continue exercise to achieve/maintain a normal BMI. Apr, Hypertrophic nonobstructive cardiomyopathy (ICD-10 - I42.2) Control fluid status, maintain euvolemic state - daily weights Adequate control of BP Low salt diet, exercise Apr, Stage 3a chronic kidney disease (ICD-10 - N18.31) The patient is instructed on adequate control of hypertension and diabetes, if appropriate. They are also educated on the associated risks of NSAIDs and PPI use with kidney disease. They were instructed on adequate fluid balance and to avoid dehydration. Started Torsemide for fluid retention. Check BMP and BNP Apr, Chronic venous insufficiency (ICD-10 - I87.2) Avoid salt and elevate lower extremities, support stockings, inspect legs and feet daily for blisters and ulcerations. Continue Torsemide Apr, Gastroesophageal reflux disease with esophagitis without hemorrhage (ICD-10 - K21.00) Avoid lying flat after eating. Avoid eating 2 hours prior to bedtime. Smaller, frequent meals may be better tolerated.Weight loss if overweight.PPI with any heartburn.Monitor for dysphagia. Apr, Lumbar stenosis with neurogenic claudication (ICD-10 - M48.062) The patient is instructed to avoid bending, twisting or lifting. They are to use intermittent heat and ice as needed. They may schedule a massage or gentle manipulation. They may safely use Tylenol as needed. s/p PLIF in Mic - resolution of leg pain - continues to wear brace Apr, History of lumbar fusion (ICD-10 - Z98.1) [facility] Other 12-26-2023 Evaluation note* Encounter Date Diagnosis Assessment Notes Treatment Notes Treatment Clinical Notes Apr, Lumbar stenosis with neurogenic claudication (ICD-10 - M48.062) Wound is healing well, the patient has good resolution of her leg pain and getting her strength back. She is very happy with her progress. She will see us in a month with an x-ray of her spine. Apr, History of lumbar fusion (ICD-10 - Z98.1) [facility] Other 12-18-2023 Progress note Author Saman Marino [facility] April 19, 2023 2:35pm Note Date/Time April 19, 2023 2:35pm [facility] [address] [place] [address] Physiatry(Rehab) Progress Note Signed Patient: Renuka Owen MR#: [id number] : 1950 Acct:[id number] Age/Sex: 72 / F Adm Date: 3 Loc: Room: 0L7690-6 Type: ADM IN Attending Dr: Saman Marino MD Copies to: ~ Date of Service: 04/19/2023 Subjective Subjective Narrative: Ms. Owen is a 72 year old female with past medical history of breast cancer s/pmastectomy, multiple back surgeries, hypertension, LBBB, mitral valve prolapse, admitted to acute rehabilitation unit with functional limitations due to lumbar stenosis s/p lumbar fusion. Patient reports multiple back surgeries in the past and most recently she underwent L4-L5 decompression laminectomy with pedicle screws and interbody cageapproximately 1 year ago. She was doing reasonably well postoperatively howeverdeveloped lower extremity pain and weakness in January which progressively became worse. Neurosurgery recommended operative intervention. Patient underwent L3-L4 decompressive laminectomy, removal of all old hardware, pedicle screws, interbody cage, L3-4 fusion. No major postoperative complications. Patient was recommended acute rehab for strengthening. On admission she reports some incisional back pain. Bilateral lower extremity pain and numbness have nearly resolved. She reports no bladder or bowel issues. No other concerns or complaints. Prior to admission patient was fully independent and lived alone. Recently she has been using a cane for ambulation. Interval History: BP better today 118/60. Vitals wnl otherwise. Pain controlled. No dizziness. Independent with mobility/self-care. Tolerating therapy. Review of Systems Review of Systems All other systems reviewed & are negative unless noted below or in HPI Exam Physical Exam Vital Signs: Temp Pulse Resp BP Pulse Ox O2 Del Method 97.6 F 73 18 118/60 99 Room Air 04/19/23 05:49 04/19/23 05:49 04/19/23 05:49 04/19/23 09:03 04/19/23 05:49 04/19/23 11:15 Narrative: General: Awake, alert, oriented x3 HENT: Normal to inspection, normocephalic, atraumatic Eyes: PERRL, normal conjunctiva and sclera Neck: Normal ROM, normal visual inspection. Trachea midline. Back: Lumbar incision, covered with dry dressing, no drainage, surrounding erythema, abnormal induration. Cardio: Regular heart rate and rhythm Respiratory: Clear to auscultation bilaterally. Normal respiratory effort. No respiratory distress. GI: Abdomen soft, nontender, nondistended, active bowel sounds x4 quadrants Neuro: CN II-XII intact. Strength 5/5, equal bilaterally Extremities: No edema, erythema, cyanosis Psych: Mood and affect appropriate. Normal speech. Objective Labs 04/16/23 05:17 04/16/23 05:17 Medications and Allergies Allergies and Active Meds: Allergies atorvastatin [From Lipitor] Allergy (Verified 04/09/23 06:14) Hives Penicillins Allergy (Verified 04/09/23 06:14) Hives Active Medications Generic Name Dose Route Start Last Admin Trade Name Freq PRN Reason Stop Dose Admin Acetaminophen 500 mg 04/15/23 16:39 04/19/23 03:28 Acetaminophen 500 Mg Tablet PO 04/14/24 16:38 500 mg Q4H PRN Administration Pain Al Hydrox/Mg Hydrox/Simethicone 30 ml 04/15/23 16:39 Mag Hydrox/Al Hydrox/Simeth 30 Ml Udc PO 04/14/24 16:38 Q4H PRN Indigestion Aspirin 81 mg 04/16/23 09:00 04/19/23 09:01 Aspirin 81 Mg Tablet.Dr PO 04/15/24 08:59 81 mg DAILY JUSTYN Administration Bisacodyl 10 mg 04/15/23 16:39 Bisacodyl 10 Mg Supp.Rect MA 04/14/24 16:38 DAILY PRN Constipation Calcium Carbonate 1 tab 04/15/23 21:00 04/19/23 09:01 Calcium Carbonate/Vitamin D3 500 Mg/200 Unit Tablet PO 04/14/24 20:59 1 tab BID JUSTYN Administration Carvedilol 6.25 mg 04/15/23 17:00 04/19/23 09:02 Carvedilol 6.25 Mg Tablet PO 04/14/24 16:59 Not Given BID.WITH.MEALS JUSTYN Cyclobenzaprine HCl 10 mg 04/15/23 16:34 04/19/23 11:36 Cyclobenzaprine 10 Mg Tablet PO 04/14/24 16:33 10 mg Q8HR PRN Administration Spasms Docusate Sodium 100 mg 04/15/23 16:39 Docusate 100 Mg Capsule PO 04/14/24 16:38 BID PRN Constipation Docusate Sodium 283 mg 04/15/23 16:39 Docusate Enema 283 Mg/5 Ml Enema MA 04/14/24 16:38 DAILY PRN Constipation Enalapril Maleate 2.5 mg 04/15/23 21:00 04/19/23 09:02 Enalapril Maleate 5 Mg Tablet PO 04/14/24 20:59 Not Given BID JUSTYN Fluticasone Propionate 2 spray 04/15/23 16:34 Fluticasone Propionate [place] 120 [place]/16 Gm Bottle INTRANASAL 04/14/24 16:33 DAILY PRN Nasal Congestion Gabapentin 300 mg 04/16/23 09:00 04/19/23 09:01 Gabapentin 300 Mg Capsule PO 04/15/24 08:59 300 mg QAM JUSTYN Administration Gabapentin 600 mg 04/15/23 22:00 04/18/23 21:00 Gabapentin 300 Mg Capsule PO 04/14/24 21:59 600 mg BID@1400,2200 JUSTYN Administration Hydrochlorothiazide 25 mg 04/16/23 09:00 04/17/23 08:46 Hydrochlorothiazide 25 Mg Tablet PO 04/15/24 08:59 Not Given DAILY JUSTYN Lactulose 30 gm 04/15/23 16:39 Lactulose 20 Gm/30 Ml Udc PO 04/14/24 16:38 DAILY PRN Constipation Magnesium Hydroxide 30 ml 04/15/23 16:34 Magnesium Hydroxide Susp 30 Ml Udc PO 04/14/24 16:33 HS PRN Constipation Melatonin 10 mg 04/15/23 16:34 04/18/23 21:00 Melatonin 5 Mg Tablet PO 10 mg HS PRN Administration Sleep Oxycodone HCl 5 mg 04/17/23 10:13 04/18/23 21:03 Oxycodone Ir 5 Mg Tablet PO 5 mg Q6HR PRN Administration Pain Scale 7 - 10 Pantoprazole Sodium 40 mg 04/16/23 09:00 04/19/23 09:01 Pantoprazole 40 Mg Tablet. PO 04/15/24 08:59 40 mg DAILY JUSTYN Administration Senna/Docusate Sodium 2 tab 04/15/23 21:00 04/19/23 09:02 Sennosides/Docusate 8.6-50mg 1 Tab Tablet PO 04/14/24 20:59 2 tab BID JUSTYN Administration Sennosides 2 tab 04/16/23 12:00 Sennosides 8.6 Mg Tablet PO 04/15/24 11:59 DAILY@12 PRN If no BM in 2 days Sodium Chloride 0 ml 04/15/23 16:39 Sodium Chloride 0.9 % 10 Ml Syringe IV-PUSH 04/14/24 16:38 PRN PRN Flush Torsemide 20 mg 04/16/23 09:00 04/19/23 09:02 Torsemide 20 Mg Tablet PO 04/15/24 08:59 Not Given DAILY JUSTYN Trazodone HCl 50 mg 04/15/23 16:34 04/18/23 21:00 Trazodone 50 Mg Tablet PO 04/14/24 16:33 50 mg QHS PRN Administration sleeplessness Assessment/Plan Assessment/Plan (1) Postoperative pain: (2) Impaired mobility and activities of daily living: (3) Left bundle branch block: (4) Lumbar stenosis without neurogenic claudication: (5) Neuropathy: Plan 72-year-old female presenting to acute inpatient rehabilitation unit with functional impairments secondary to lumbar stenosis s/p L3-L4 fusion by Dr. Moreau. Uncomplicated procedure. Doing well postoperatively, symptoms improving, participating in therapy. -Progressed to functional goals -Plan is home tomorrow -Vitals stable -Meds reviewed. Patient education Pressure ulcer prophylaxis; encourage mobilization, frequent postural changes, pressure-relief techniques DVT prophylaxis Encourage deep breathing exercise incentive spirometry. Monitor bladder. Toileting schedule. Continue current bladder management, with scans as needed and CIC if needed. Start bowel care program every day to obtain continence, prevent ileus. Maintain fall precautions Gait and balance retraining Functional training and self-care and home management, including activities of daily living and instrumental activities of daily living Provision of the necessary gait aids and functional adaptive equipment to enhance the patient's a functional adventist Ensure adequate nutrition and hydration Sleep: No issues Pain: Reasonably controlled current regimen Discharge planning: Home tomorrow. I completed a substantive portion of this encounter, the medical decision makingportion of this note in its entirety, including Allied health note review, nursing note review, security system sales consultant note review, discussion with nursing and case management, and more than 50% of my time was spent on counseling and coordination of care, time spent 35 minutes Patient was personally seen by me, Dr. Marino, on the day of encounter, I reviewed the history and the relevant portions of the chart, including current orders, allied health and security system sales consultant notes, labs/imaging and performed butts elements of exam and I formulated the plan of care and facilitated the medical decision making. Documented By: Saman Marino MD 04/19/23 1434 Signed By: <Electronically signed by Saman Marino MD> 04/19/23 1435 [facility] Work Phone: 1(855) 950-432712-18-2023 Hospital Discharge instructionsAmbulatory Orders* Initiate Home Health Time Frame: 04/19/23, Location: Determined By Patient Additional Instructions -Code status: Full code. -Activity: Ambulate as tolerated. Brace to be worn when out of bed. No lifting greater than 15 lbs. No driving until cleared by Surgeon, may ride in car. -Diet: Regular diet. -Wound care to back incision: Apply dry sterile dressing to incision and change daily and as needed if dressing becomes soiled or falls off. -May continue to wear abdominal binder as needed. Your Home Health agency is [facility] ( ). They will contact you 24-48 hours after discharge to schedule a day/time to meet with you at your home to establish care. You have been given prescriptions for new and/or needed medications. These prescriptions are for a one-time fill only, with no re-fills. For further re-fills going forward, you will need to address with your PCP at your follow up appointment, or by calling your PCP s office prior to the prescriptions running out. NOTE: please call within 24 hours if you need to cancel or change any follow up appointments. Arrive early to all follow up appointments, bring current medication list, photo ID and any insurance card(s) to all future follow ups (listed below). Please remember to wear a mask to all appointments. If you develop any symptoms (cough, fever/chills, shortness of breath, sore throat, nausea/vomiting, etc.) please contact your provider's office to inform them prior to your appointment.[facility] Work Phone: 1(670) 491-734112-16-2023 Progress note Author Saman Marino [facility] April 17, 2023 12:23pm Note Date/Time April 17, 2023 12:23pm [facility] [address] [place] [address] Physiatry(Rehab) Progress Note Signed Patient: Renuka Owen MR#: [id number] : 1950 Acct:[id number] Age/Sex: 72 / F Adm Date: 3 Loc: Room: [address] [place] [address] Type: ADM IN Attending Dr: Saman Marino MD Copies to: ~ Date of Service: 04/17/2023 Subjective Subjective Narrative: Ms. Owen is a 72 year old female with past medical history of breast cancer s/pmastectomy, multiple back surgeries, hypertension, LBBB, mitral valve prolapse, admitted to acute rehabilitation unit with functional limitations due to lumbar stenosis s/p lumbar fusion. Patient reports multiple back surgeries in the past and most recently she underwent L4-L5 decompression laminectomy with pedicle screws and interbody cageapproximately 1 year ago. She was doing reasonably well postoperatively howeverdeveloped lower extremity pain and weakness in January which progressively became worse. Neurosurgery recommended operative intervention. Patient underwent L3-L4 decompressive laminectomy, removal of all old hardware, pedicle screws, interbody cage, L3-4 fusion. No major postoperative complications. Patient was recommended acute rehab for strengthening. On admission she reports some incisional back pain. Bilateral lower extremity pain and numbness have nearly resolved. She reports no bladder or bowel issues. No other concerns or complaints. Prior to admission patient was fully independent and lived alone. Recently she has been using a cane for ambulation. Interval History: No events overnight. BP lower this morning but asympomatic. Ambulatory with therapy, 235'. Review of Systems Review of Systems All other systems reviewed & are negative unless noted below or in HPI Exam Physical Exam Vital Signs: Temp Pulse Resp BP Pulse Ox O2 Del Method 97.8 F 83 16 97/62 L 99 Room Air 04/17/23 05:23 04/17/23 05:23 04/17/23 05:23 04/17/23 05:23 04/17/23 05:23 04/17/23 05:23 Narrative: General: Awake, alert, oriented x3 HENT: Normal to inspection, normocephalic, atraumatic Eyes: PERRL, normal conjunctiva and sclera Neck: Normal ROM, normal visual inspection. Trachea midline. Back: Lumbar incision, covered with dry dressing, no drainage, surrounding erythema, abnormal induration. Cardio: Regular heart rate and rhythm Respiratory: Clear to auscultation bilaterally. Normal respiratory effort. No respiratory distress. GI: Abdomen soft, nontender, nondistended, active bowel sounds x4 quadrants Neuro: CN II-XII intact. Strength 5/5, equal bilaterally Extremities: No edema, erythema, cyanosis Psych: Mood and affect appropriate. Normal speech. Objective Labs 04/16/23 05:17 04/16/23 05:17 Medications and Allergies Allergies and Active Meds: Allergies atorvastatin [From Lipitor] Allergy (Verified 04/09/23 06:14) Hives Penicillins Allergy (Verified 04/09/23 06:14) Hives Active Medications Generic Name Dose Route Start Last Admin Trade Name Freq PRN Reason Stop Dose Admin Acetaminophen 500 mg 04/15/23 16:39 Acetaminophen 500 Mg Tablet PO 04/14/24 16:38 Q4H PRN Pain Al Hydrox/Mg Hydrox/Simethicone 30 ml 04/15/23 16:39 Mag Hydrox/Al Hydrox/Simeth 30 Ml Udc PO 04/14/24 16:38 Q4H PRN Indigestion Aspirin 81 mg 04/16/23 09:00 04/17/23 08:43 Aspirin 81 Mg Tablet.Dr PO 04/15/24 08:59 81 mg DAILY JUSTYN Administration Bisacodyl 10 mg 04/15/23 16:39 Bisacodyl 10 Mg Supp.Rect MA 04/14/24 16:38 DAILY PRN Constipation Calcium Carbonate 1 tab 04/15/23 21:00 04/17/23 08:43 Calcium Carbonate/Vitamin D3 500 Mg/200 Unit Tablet PO 04/14/24 20:59 1 tab BID JUSTYN Administration Carvedilol 6.25 mg 04/15/23 17:00 04/17/23 08:45 Carvedilol 6.25 Mg Tablet PO 04/14/24 16:59 Not Given BID.WITH.MEALS JUSTYN Cyclobenzaprine HCl 10 mg 04/15/23 16:34 04/17/23 08:43 Cyclobenzaprine 10 Mg Tablet PO 04/14/24 16:33 10 mg Q8HR PRN Administration Spasms Docusate Sodium 100 mg 04/15/23 16:39 Docusate 100 Mg Capsule PO 04/14/24 16:38 BID PRN Constipation Docusate Sodium 283 mg 04/15/23 16:39 Docusate Enema 283 Mg/5 Ml Enema MA 04/14/24 16:38 DAILY PRN Constipation Enalapril Maleate 2.5 mg 04/15/23 21:00 04/17/23 08:45 Enalapril Maleate 5 Mg Tablet PO 04/14/24 20:59 Not Given BID JUSTYN Fluticasone Propionate 2 spray 04/15/23 16:34 Fluticasone Propionate [place] 120 [place]/16 Gm Bottle INTRANASAL 04/14/24 16:33 DAILY PRN Nasal Congestion Gabapentin 300 mg 04/16/23 09:00 04/17/23 08:43 Gabapentin 300 Mg Capsule PO 04/15/24 08:59 300 mg QAM JUSTYN Administration Gabapentin 600 mg 04/15/23 22:00 04/16/23 21:08 Gabapentin 300 Mg Capsule PO 04/14/24 21:59 600 mg BID@1400,2200 JUSTYN Administration Hydrochlorothiazide 25 mg 04/16/23 09:00 04/17/23 08:46 Hydrochlorothiazide 25 Mg Tablet PO 04/15/24 08:59 Not Given DAILY JUSTYN Lactulose 30 gm 04/15/23 16:39 Lactulose 20 Gm/30 Ml Udc PO 04/14/24 16:38 DAILY PRN Constipation Magnesium Hydroxide 30 ml 04/15/23 16:34 Magnesium Hydroxide Susp 30 Ml Udc PO 04/14/24 16:33 HS PRN Constipation Melatonin 10 mg 04/15/23 16:34 04/15/23 21:12 Melatonin 5 Mg Tablet PO 10 mg HS PRN Administration Sleep Oxycodone HCl 5 mg 04/17/23 10:13 Oxycodone Ir 5 Mg Tablet PO Q6HR PRN Pain Scale 7 - 10 Pantoprazole Sodium 40 mg 04/16/23 09:00 04/17/23 08:43 Pantoprazole 40 Mg Tablet. PO 04/15/24 08:59 40 mg DAILY JUSTYN Administration Senna/Docusate Sodium 2 tab 04/15/23 21:00 04/17/23 08:43 Sennosides/Docusate 8.6-50mg 1 Tab Tablet PO 04/14/24 20:59 2 tab BID JUSTYN Administration Sennosides 2 tab 04/16/23 12:00 Sennosides 8.6 Mg Tablet PO 04/15/24 11:59 DAILY@12 PRN If no BM in 2 days Sodium Chloride 0 ml 04/15/23 16:39 Sodium Chloride 0.9 % 10 Ml Syringe IV-PUSH 04/14/24 16:38 PRN PRN Flush Torsemide 20 mg 04/16/23 09:00 04/17/23 08:46 Torsemide 20 Mg Tablet PO 04/15/24 08:59 Not Given DAILY JUSTYN Trazodone HCl 50 mg 04/15/23 16:34 04/16/23 21:09 Trazodone 50 Mg Tablet PO 04/14/24 16:33 50 mg QHS PRN Administration sleeplessness Assessment/Plan Assessment/Plan (1) Postoperative pain: (2) Impaired mobility and activities of daily living: (3) Left bundle branch block: (4) Lumbar stenosis without neurogenic claudication: (5) Neuropathy: Plan 72-year-old female presenting to acute inpatient rehabilitation unit with functional impairments secondary to lumbar stenosis s/p L3-L4 fusion by Dr. Moreau. Uncomplicated procedure. Doing well postoperatively, symptoms improving, participating in therapy. -Abd binder out of bed -Hold parameters for BP meds -D/c HCTZ -Ambulatory with therapy. Patient education Pressure ulcer prophylaxis; encourage mobilization, frequent postural changes, pressure-relief techniques DVT prophylaxis Encourage deep breathing exercise incentive spirometry. Monitor bladder. Toileting schedule. Continue current bladder management, with scans as needed and CIC if needed. Start bowel care program every day to obtain continence, prevent ileus. Maintain fall precautions Gait and balance retraining Functional training and self-care and home management, including activities of daily living and instrumental activities of daily living Provision of the necessary gait aids and functional adaptive equipment to enhance the patient's a functional adventist Ensure adequate nutrition and hydration Sleep: No issues Pain: Reasonably controlled current regimen Discharge planning: Home in a week or so. I completed a substantive portion of this encounter, the medical decision makingportion of this note in its entirety, including Allied health note review, nursing note review, security system sales consultant note review, discussion with nursing and case management, and more than 50% of my time was spent on counseling and coordination of care, time spent 35 minutes Patient was personally seen by me, Dr. Marino, on the day of encounter, I reviewed the history and the relevant portions of the chart, including current orders, allied health and security system sales consultant notes, labs/imaging and performed butts elements of exam and I formulated the plan of care and facilitated the medical decision making. Documented By: Saman Marino MD 04/17/231220 Signed By: <Electronically signed by Saman Marino MD> 04/17/231222 [facility] Work Phone: [phone]) 829-779112-15-2023 History and physical note Author Saman Marino [facility] April 16, 2023 1:42pm Note Date/Time April 16, 2023 11:19am [facility] [address] [place] [address] Physiatry (Rehab) H&P Signed Patient: Renuka Owen MR#: [id number] : 1950 Acct:[id number] Age/Sex: 72 / F Adm Date: 3 Loc: Room: 8M1491-3 Type: ADM IN Attending Dr: Saman Marino MD Copies to: NON STAFF Marley Mendieta, EXERCISE PHYSIOLOGIST Saman Marino MD~ Date of Service: 04/16/2023 HPI The patient was seen and examined on: 04/16/23 History of Present Illness: Ms. Owen is a 72 year old female with past medical history of breast cancer s/pmastectomy, multiple back surgeries, hypertension, LBBB, mitral valve prolapse, admitted to acute rehabilitation unit with functional limitations due to lumbar stenosis s/p lumbar fusion. Patient reports multiple back surgeries in the past and most recently she underwent L4-L5 decompression laminectomy with pedicle screws and interbody cageapproximately 1 year ago. She was doing reasonably well postoperatively howeverdeveloped lower extremity pain and weakness in January which progressively became worse. Neurosurgery recommended operative intervention. Patient underwent L3-L4 decompressive laminectomy, removal of all old hardware, pedicle screws, interbody cage, L3-4 fusion. No major postoperative complications. Patient was recommended acute rehab for strengthening. On admission she reports some incisional back pain. Bilateral lower extremity pain and numbness have nearly resolved. She reports no bladder or bowel issues. No other concerns or complaints. Prior to admission patient was fully independent and lived alone. Recently she has been using a cane for ambulation. [facility] Medical History Arthritis Breast cancer left DDD (degenerative disc disease) GERD (gastroesophageal reflux disease) Incontinence urinary incontinence Left bundle branch block Low back pain Neuropathy Osteoporosis Presacral mass Excision 2019 Vascular access prohibited in left upper extremity Surgical History History of appendectomy History of hysterectomy History of left mastectomy History of phacoemulsification of cataract of both eyes with intraocular lens implantation 2021 History of repair of left rotator cuff History of total bilateral knee replacement one month between procedures Hx of cholecystectomy Hx of decompressive lumbar laminectomy 2021 Family History Mother Breast cancer Father Testicular cancer Brother Leukemia Social History Smoking Status: Never smoker Substance Use Type: None Social History Comments: mobile home Review of Systems Review of Systems All other systems reviewed & are negative unless noted below or in HPI Meds Medications and Allergies Allergies atorvastatin [From Lipitor] Allergy (Verified 04/09/23 06:14) Hives Penicillins Allergy (Verified 04/09/23 06:14) Hives Home and Active Meds: Home Medications carvedilol 6.25 mg tablet 6.25 mg PO BID 10/04/20 [History Confirmed 04/15/23] fluticasone propionate 50 mcg/actuation nasal spray,suspension 2 spray intranasal DAILY PRN Nasal Congestion 10/04/20 [History Confirmed 04/15/23] gabapentin 300 mg capsule 300 mg PO QAM neuropathic pain 10/04/20 [History Confirmed 04/15/23] hydrochlorothiazide 25 mg tablet 25 mg PO DAILY 10/04/20 [History Confirmed 04/15/23] omeprazole 20 mg capsule,delayed release 20 mg PO DAILY 10/04/20 [History Confirmed 04/15/23] calcium carbonate 600 mg-vitamin D3 10 mcg (400 unit) tablet (Calcium 600 + D(3)) 1 tab PO BID osteoporosis 09/24/21 [History Confirmed 04/15/23] gabapentin 300 mg capsule 600 mg PO BID@1400,2200 nerve pain 09/24/21 [History Confirmed 04/15/23] melatonin 10 mg tablet 10 mg PO HS PRN Sleep 03/16/22 [History Confirmed 04/15/23] enalapril maleate 2.5 mg tablet 2.5 mg PO BID 03/26/23 [History Confirmed 04/15/23] torsemide 20 mg tablet 20 mg PO DAILY 03/26/23 [History Confirmed 04/15/23] trazodone 50 mg tablet 50 mg PO QHS PRN sleeplessness 03/26/23 [History Confirmed 04/15/23] aspirin 81 mg tablet,delayed release 81 mg PO DAILY 04/09/23 [History Confirmed 04/15/23] acetaminophen 325 mg tablet (Tylenol) 650 mg PO Q4H PRN Mild Pain #0 tabs 04/15/23 [Rx] aluminum-mag hydroxide-simethicone 200 mg-200 mg-20 mg/5 mL oral susp (Mag-Al Plus) 30 ml PO Q4H PRN Heartburn #0 mL 04/15/23 [Rx] cyclobenzaprine 10 mg tablet 10 mg PO Q8HR PRN Spasms 04/15/23 [History Confirmed 04/15/23] magnesium hydroxide 400 mg/5 mL oral suspension (Milk of Magnesia) 30 ml PO HS PRN Constipation #0 mL 04/15/23 [Rx Confirmed 04/15/23] oxycodone 5 mg tablet 5 mg PO Q6HR PRN Pain Scale 4-6 04/15/23 [History Confirmed 04/15/23] oxycodone 5 mg tablet 10 mg PO Q6HR PRN Pain Scale 7-10 04/15/23 [History Confirmed 04/15/23] sennosides 8.6 mg-docusate sodium 50 mg tablet 2 tab PO BID #0 tabs 04/15/23 [Rx Confirmed 04/15/23] Active Medications Acetaminophen (Acetaminophen 500 Mg Tablet) 500 mg PO Q4H PRN PRN Reason: Pain Stop: 04/14/24 16:38 Al Hydrox/Mg Hydrox/Simethicone (Mag Hydrox/Al Hydrox/Simeth 30 Ml Udc) 30 ml PO Q4H PRN PRN Reason: Indigestion Stop: 04/14/24 16:38 Aspirin (Aspirin 81 Mg Tablet.Dr) 81 mg PO DAILY [facility] Stop: 04/15/24 08:59 Last Admin: 04/16/23 08:34 Dose: 81 mg Bisacodyl (Bisacodyl 10 Mg Supp.Rect) 10 mg MA DAILY PRN PRN Reason: Constipation Stop: 04/14/24 16:38 Calcium Carbonate (Calcium Carbonate/Vitamin D3 500 Mg/200 Unit Tablet) 1 tab PO BID [facility] Stop: 04/14/24 20:59 Last Admin: 04/16/23 08:41 Dose: 1 tab Carvedilol (Carvedilol 6.25 Mg Tablet) 6.25 mg PO BID.WITH.MEALS [facility] Stop: 04/14/24 16:59 Last Admin: 04/16/23 08:35 Dose: 6.25 mg Cyclobenzaprine HCl (Cyclobenzaprine 10 Mg Tablet) 10 mg PO Q8HR PRN PRN Reason: Spasms Stop: 04/14/24 16:33 Last Admin: 04/16/23 10:16 Dose: 10 mg Docusate Sodium (Docusate 100 Mg Capsule) 100 mg PO BID PRN PRN Reason: Constipation Stop: 04/14/24 16:38 Docusate Sodium (Docusate Enema 283 Mg/5 Ml Enema) 283 mg MA DAILY PRN PRN Reason: Constipation Stop: 04/14/24 16:38 Enalapril Maleate (Enalapril Maleate 5 Mg Tablet) 2.5 mg PO BID JUSTYN Stop: 04/14/24 20:59 Last Admin: 04/16/23 08:41 Dose: 2.5 mg Fluticasone Propionate (Fluticasone Propionate [place] 120 [place]/16 Gm Bottle) 2 spray INTRANASAL DAILY PRN PRN Reason: Nasal Congestion Stop: 04/14/24 16:33 Gabapentin (Gabapentin 300 Mg Capsule) 300 mg PO QAM JUSTYN Stop: 04/15/24 08:59 Last Admin: 04/16/23 08:34 Dose: 300 mg Gabapentin (Gabapentin 300 Mg Capsule) 600 mg PO BID@1400,2200 JUSTYN Stop: 04/14/24 21:59 Last Admin: 04/15/23 21:11 Dose: 600 mg Hydrochlorothiazide (Hydrochlorothiazide 25 Mg Tablet) 25 mg PO DAILY [facility] Stop: 04/15/24 08:59 Last Admin: 04/16/23 08:33 Dose: Not Given Lactulose (Lactulose 20 Gm/30 Ml Udc) 30 gm PO DAILY PRN PRN Reason: Constipation Stop: 04/14/24 16:38 Magnesium Hydroxide (Magnesium Hydroxide Susp 30 Ml Udc) 30 ml PO HS PRN PRN Reason: Constipation Stop: 04/14/24 16:33 Melatonin (Melatonin 5 Mg Tablet) 10 mg PO HS PRN PRN Reason: Sleep Last Admin: 04/15/23 21:12 Dose: 10 mg Oxycodone HCl (Oxycodone Ir 5 Mg Tablet) 5 mg PO Q6HR PRN PRN Reason: Pain Scale 4-6 Oxycodone HCl (Oxycodone Ir 5 Mg Tablet) 10 mg PO Q6HR PRN PRN Reason: Pain Scale 7-10 Last Admin: 04/16/23 05:26 Dose: 10 mg Pantoprazole Sodium (Pantoprazole 40 Mg Tablet.Dr) 40 mg PO DAILY [facility] Stop: 04/15/24 08:59 Last Admin: 04/16/23 08:35 Dose: 40 mg Senna/Docusate Sodium (Sennosides/Docusate 8.6-50mg 1 Tab Tablet) 2 tab PO BID JUSTYN Stop: 04/14/24 20:59 Last Admin: 04/16/23 08:35 Dose: 2 tab Sennosides (Sennosides 8.6 Mg Tablet) 2 tab PO DAILY@12 PRN PRN Reason: If no BM in 2 days Stop: 04/15/24 11:59 Sodium Chloride (Sodium Chloride 0.9 % 10 Ml Syringe) 0 ml IV-PUSH PRN PRN PRN Reason: Flush Stop: 04/14/24 16:38 Torsemide (Torsemide 20 Mg Tablet) 20 mg PO DAILY JUSTYN Stop: 04/15/24 08:59 Last Admin: 04/16/23 08:35 Dose: 20 mg Trazodone HCl (Trazodone 50 Mg Tablet) 50 mg PO QHS PRN PRN Reason: sleeplessness Stop: 04/14/24 16:33 Last Admin: 04/15/23 21:12 Dose: 50 mg Exam Physical Exam Vital Signs: Temp Pulse Resp BP Pulse Ox O2 Del Method 97.5 F L 51 L 20 120/65 100 Room Air 04/16/23 08:27 04/16/23 08:27 04/16/23 08:27 04/16/23 08:27 04/16/23 08:27 04/16/23 08:27 Narrative: General: Awake, alert, oriented x3 HENT: Normal to inspection, normocephalic, atraumatic Eyes: PERRL, normal conjunctiva and sclera Neck: Normal ROM, normal visual inspection. Trachea midline. Back: Lumbar incision, covered with dry dressing, no drainage, surrounding erythema, abnormal induration. Cardio: Regular heart rate and rhythm Respiratory: Clear to auscultation bilaterally. Normal respiratory effort. No respiratory distress. GI: Abdomen soft, nontender, nondistended, active bowel sounds x4 quadrants Neuro: CN II-XII intact. Strength 5/5, equal bilaterally Extremities: No edema, erythema, cyanosis Psych: Mood and affect appropriate. Normal speech. Results Labs Labs: Laboratory Results - last 24 hr 04/16/23 04/16/23 05:17 05:17 Corrected WBC 9.7 Uncorrected WBC Count 9.7 RBC 3.99 Hgb 11.0 L Hct 33.2 L MCV 83.2 MCH 27.4 MCHC 33.0 RDW 15.0 Plt Count 228 MPV 7.7 Neut % (Auto) 67.0 Lymph % (Auto) 18.4 [place] % (Auto) 13.9 Eos % (Auto) 0.3 Baso % (Auto) 0.4 Nucleat RBC Rel Count 0.1 Neut # (Auto) 6.5 Lymph # (Auto) 1.8 [place] # (Auto) 1.4 H Eos # (Auto) 0.0 Baso # (Auto) 0.0 PHA Creatinine Clear 47.09 Sodium 142 Potassium 3.9 Chloride 101 Carbon Dioxide 32.5 H Anion Gap 12.4 BUN 34 H Creatinine 0.94 Est GFR (CKD-EPI) > 60.0 Glucose 85 Calcium 9.8 Total Bilirubin 0.6 AST 14 ALT 12 Alkaline Phosphatase 45 Total Protein 6.2 L Albumin 3.4 L Globulin 2.8 Albumin/Globulin Ratio 1.2 Prealbumin 23.4 Additional Results Results Comment: I reviewed clinical lab tests, radiology reports and obtained and summated medical records and have ordered follow up lab tests and imaging studies as needed for rehabilitation care. Functional Status Prior Level of Function Narrative: Previously independent Current Level of Function Narrative: Ambulatory 145 feet with a wheeled walker and standby assist. CGA/min assist with transfers and bed mobility. Individualized Plan of Care Individualized Plan of Care Plan of Care: Individualized Overall Plan of Care: Admit Date/Time: April 15, 2023 Expected LOS: 2 weeks Expected Discharge Destination: Home Rehabilitation [facility]: 08.9 Primary Diagnosis: Lumbar stenosis s/p multilevel fusion with hardware removal To have patient become more independent and to return home. Medical/ Functional Prognosis: Good Anticipated Functional Outcomes/Goals and Interventions: 1.Therapy Functional Outcome/Goal: Anticipate Independent bed mobility Anticipated interventions: Physician management, PT, OT, Dietitian, Rehab Nursing, Case management 2. Therapy Functional Outcome/Goal: Anticipate independent transfers Anticipated interventions: Physician management, PT, OT, , Case management, Dietitian, Rehab Nursing 3. Therapy Functional Outcome/Goal: Anticipate independent ambulation Anticipated interventions: Physician management, PT, OT, Case management, Dietitian, Rehab Nursing 4.Therapy Functional Outcome/Goal: Anticipate independent self-care Anticipated interventions: Physician management, PT, OT,Case management, Dietitian, Rehab Nursing 5.Therapy Functional Outcome/Goal: Anticipate indepedent stairs Anticipated interventions: Physician management, PT, OT, Case management, Dietitian, Rehab Nursing Required Therapy PT: 1 hour per day at least 5 days per week with additional therapy on as neededbasis. Comments: PT to improve pt's strength, endurance, bed mobility, transfers (sit-stand), standing balance, gait quality on level surfaces and stairs, coordination and functional ADL skills. Will also work to improve pt's safety awareness during transfers and ambulation. OT: 1 hour per day at least 5 days per week with additional therapy on as neededbasis. Comments: OT for basic ADL re-training (bathing, dressing, toileting, continence, grooming, feeding, transferring), to increase activity tolerance andfunctional mobility and to evaluate for adaptive and assistive devices. Will work to improve pt's endurance and educate pt on fall prevention and energy conservation techniques-pacing strategies and proper breathing techniques duringfunctional tasks. Speech/Language - 1 hour per day at least 5 days per week with additional therapy on as needed basis. Comments: INSERTER to evaluate and treat patient?s cognition, language and communication skills, assess swallow function. Other: Dietitian, Rehab nursing, Wound, P&O, Neuropsychology as needed RATIONALE FOR IRF ADMISSION: Patient has both medical and functional complexities that require 24 hour daily monitoring and intervention from Production Welder as well as other consulting physicians including internal medicine as well as 24 hour daily industrial relations analyst nursing - for medical safe / optimal management. Patient requires interdisciplinary therapy team rehabilitation care including OT, PT, INSERTER, SW, Psychology, Rehab Nursing, requires and can tolerate at least 3 hours of daily OT and PT therapy at least 5 days weekly. The following medical conditions significantly impact the rehabilitation process andare being addressed daily and can not be managed at home or in a lesser intense medical setting: Refer to above problem oriented plan of care Assessment/Plan (1) Postoperative pain: (2) Impaired mobility and activities of daily living: (3) Left bundle branch block: (4) Lumbar stenosis without neurogenic claudication: (5) Neuropathy: Plan 72-year-old female presenting to acute inpatient rehabilitation unit with functional impairments secondary to lumbar stenosis s/p L3-L4 fusion by Dr. Moreau. Uncomplicated procedure. Doing well postoperatively, symptoms improving, participating in therapy. -Continue current pain regimen -Monitor surgical incision for signs of infection. Notify neurosurgery with anyabnormalities. -Trend labs and vitals. -Clarify when okay to initiate DVT prophylaxis with neurosurgery, usually one week postop. Patient education Pressure ulcer prophylaxis; encourage mobilization, frequent postural changes, pressure-relief techniques DVT prophylaxis Encourage deep breathing exercise incentive spirometry. Monitor bladder. Toileting schedule. Continue current bladder management, with scans as needed and CIC if needed. Start bowel care program every day to obtain continence, prevent ileus. Maintain fall precautions Gait and balance retraining Functional training and self-care and home management, including activities of daily living and instrumental activities of daily living Provision of the necessary gait aids and functional adaptive equipment to enhance the patient's a functional adventist Ensure adequate nutrition and hydration Sleep: No issues Pain: Reasonably controlled current regimen Discharge planning: Home in a week or so. I spent greater than 35 minutes for services, including [id number] encounter with the patient, discussion of the case, plan of care, and exam; and [id number] activities, such as reviewing pertinent security system sales consultant documentation, recent therapy notes, laboratory and radiology studies, and discussion of case with care team including physician, nursing, spring encaser, and therapists. More than 50 % of time was spent on patient/family counseling or coordination ofcare. I completed a substantive portion of this encounter, the medical decision makingportion of this note in its entirety, including Allied health note review, nursing note review, security system sales consultant note review, discussion with nursing and case management, and more than 50% of my time was spent on counseling and coordination of care, time spent 70 minutes Patient was personally seen by me, Dr. Marino, on the day of encounter, within 24hours of rehab admission, reviewed the history and the relevant portions of the chart, including current orders, allied health and security system sales consultant notes, labs/imaging and performed butts elements of exam and I formulated the plan of care and facilitated the medical decision making. Documented By: Marley Menideta APRN 04/16/23 1 112 Signed By: <Electronically signed by CASSIA Mendieta> 04/16/23 1158 <Electronically signed by Saman Marino MD> 04/16/23 1342 [facility] Work Phone: [phone]) 860-142111-21-2023 Evaluation note* Encounter Date Diagnosis Assessment Notes Treatment Notes Treatment Clinical Notes Mar, Acute bilateral low back pain without sciatica (ICD-10 - M54.50) 12Bis Other 11-16-2023 History of Present illness Narrative* Bryce Hendrickson MD - 03/18/2023 10:30 AM EST Subjective Renuka Owen is a 72 y.o. female Chief Complaint Pre-op Clearance HPI Patient is in the office for follow-up after having cardiac MRI that demonstrated ejection fractionof 53% with mild to moderate mitral regurgitation. She responded well to the CRESENCIO inhibitors, beta-blockers and diuretics and has no orthopnea PND and minimal lower extremity edema and no hypotension.She is scheduled on April 09, 2023 for back surgery due to severe pain and she will be cleared for the surgery without any reservations. She can stop the aspirin for the surgery. This information will be conveyed to the neurosurgeon. ASSESSMENT AND PLAN: 1. Hypertension, currently under control. On Coreg and enalapril 2. Overweight, encouraged cutting back calorie intake. She has lost 10 pounds since her last visit 3. Chronic left bundle branch block, may be contributing to LV systolic dysfunction 4. Mild-moderate mitral rotation confirmed by cardiac MRI March 2023. Ejection fraction 53%. Medical therapy will continue as is for the time being. She will come back to see me in 4 months. Annual echocardiogram will be scheduled 5. Mild LV systolic dysfunction, ejection fraction 53%. Coreg and enalapril will be left as it is for the time being. She is compensated Bryce Hendrickson MD, FACC Review of Systems All other systems reviewed and are negative. Visit Vitals BP 118/80 (BP Location: Right arm, Patient Position: Sitting) Pulse 62 Ht 1.549 m (5' 1 ) Wt 70.8 kg (156 lb) BMI 29.48 kg/m OB Status Postmenopausal Smoking Status Never BSA 1.75 m Objective Physical Exam Constitutional: Appearance: Normal appearance. She is normal weight. HENT: Nose: Nose normal. Neck: Vascular: No carotid bruit. Cardiovascular: Rate and Rhythm: Normal rate. Pulses: Normal pulses. Heart sounds: Normal heart sounds. Pulmonary: Effort: Pulmonary effort is normal. Abdominal: General: Bowel sounds are normal. Palpations: Abdomen is soft. Genitourinary: Rectum: Normal. Musculoskeletal: General: Normal range of motion. Cervical back: Normal range of motion. Right lower leg: No edema. Left lower leg: No edema. Skin: General: Skin is warm and dry. Neurological: General: No focal deficit present. Mental Status: She is alert. Psychiatric: Mood and Affect: Mood normal. Behavior: Behavior normal. Thought Content: Thought content normal. Judgment: Judgment normal. Current Medications Current Outpatient Medications: aspirin 81 mg EC tablet, Take 1 tablet (81 mg) by mouth once daily., Disp: , Rfl: baclofen (Lioresal) 20 mg tablet, Take 1 tablet (20 mg) by mouth once daily as needed., Disp: , Rfl: carvedilol (Coreg) 6.25 mg tablet, Take 1 tablet (6.25 mg) by mouth 2 times a day with meals., Disp: , Rfl: enalapril (Vasotec) 2.5 mg tablet, Take 1 tablet (2.5 mg) by mouth 2 times a day., Disp: 180 tablet, Rfl: 3 fluticasone (Flonase) 50 mcg/actuation nasal spray, As directed, Disp: , Rfl: gabapentin (Neurontin) 300 mg capsule, Take 1 capsule (300 mg) by mouth. 1 TAB AM 2NOON 2PM DAILY, Disp: , Rfl: loratadine (Claritin) 10 mg tablet, Take 1 tablet (10 mg) by mouth once daily., Disp: , Rfl: omeprazole (PriLOSEC) [address] capsule, Take 1 capsule (20 mg) by mouth once daily in the morning. Take before meals., Disp: , Rfl: torsemide (Demadex) 20 mg tablet, Take 1 tablet (20 mg) by mouth once daily., Disp: 90 tablet, Rfl:3 traMADol (Ultram) 50 mg tablet, Take 1 tablet (50 mg) by mouth 2 times a day as needed., Disp: , Rfl: Assessment/Plan 1. Mitral valve insufficiency, unspecified etiology Follow Up In Cardiology Follow Up In Cardiology 2. Essential hypertension Follow Up In Cardiology 3. Overweight with body mass index (BMI) of 29 to 29.9 in adult 4. Edema, unspecified type 5. Left ventricular systolic dysfunction documented in this [facility] Work Phone: 1(361) 475-354011-16-2023 Instructions* Patient Instructions* Priscilla Gramajo LPN - 03/18/2023 10:30 AM EST Please bring all medicines, vitamins, and herbal supplements with you when you come to the office. Prescriptions will not be filled unless you are compliant with your follow up appointments or have a follow up appointment scheduled as per instruction of your physician. Refills should be requested at the time of your visit. Patient is clear for back surgery with Dr. Moreau from a cardiac standpoint. Okay to hold Aspirin asdirected. [facility] Work Phone: [phone]) 843-145711-08-2023 Evaluation note* Encounter Date Diagnosis Assessment Notes Treatment Notes Treatment Clinical Notes Mar, Encounter for gynecological examination without abnormal finding (ICD-10 - Z01.419) Clinical impressions discussed. Monthly SBE advised along with yearly mammograms. Colon and osteoporosis screening reviewed and ordered if indicated (see preventative tab below). I will contact pt. with the results of her pap testing and arrange follow up based on the results. All questions answered to her satisfaction and patient sent home stable Will watch for pap results, call patient. Consider PHYSICS TUTOR referral for possible pessary.. She is having back surgery soon and may consider further legal contracts specialist appts after surgery. [facility] Other 10-31-2023 History of Present illness Narrative* Bryce Hendrickson MD - 03/02/2023 10:00 AM EDT Subjective Renuka Owen is a 72 y.o. female Chief Complaint Follow-up HPI Patient is in the office for follow-up for the problems noted below. Since her last visit she had anuclear stress test which came back normal however the echocardiogram demonstrated ejection fraction 50% with moderate mitral regurgitation and now she has symptoms of bilateral lower extremity edemabut with no orthopnea or PND. She has no chest pain no cardiac arrhythmias. She is scheduled to have back surgery for severe pain in 10 days which I think has to be postponed. I discussed with the patient the findings as noted below and my plans are outlined below. Examination today was only remarkable for 1-2+ bilateral pitting lower extremity edema. ASSESSMENT AND PLAN: 1. Hypertension, currently under control. On Coreg only which has been well-tolerated 2. Overweight, encouraged cutting back calorie intake. She has lost 10 pounds since her last visit 3. Chronic left bundle branch block, may be contributing to LV systolic dysfunction 4. Moderate mitral regurgitation confirmed by recent echocardiogram January 2023, this is in the context of left ventricular systolic dysfunction ejection fraction 50% by echocardiogram however theejection fraction was 61% by nuclear stress test. Since ejection fraction is a major decision makerregarding valve interventions and since it is below 60% I would need to confirm the amount of mitral regurgitation and ejection fraction by doing cardiac MRI which is scheduled. 5. Left ventricle systolic dysfunction ejection fraction 50% with lower extremity edema. Patient will be taken off of the hydrochlorothiazide and will start Demadex 20 mg daily and follow her labs. Also will add enalapril 2.5 mg twice daily. Bryce Hendrickson MD, [facility] Review of Systems All other systems reviewed and are negative. Visit Vitals BP 110/68 (BP Location: Right arm, Patient Position: Sitting) Pulse 68 Ht 1.575 m (5' 2 ) Wt 70.3 kg (155 lb) BMI 28.35 kg/m Smoking Status Never BSA 1.75 m Objective Physical Exam Constitutional: Appearance: Normal appearance. She is normal weight. HENT: Nose: Nose normal. Neck: Vascular: No carotid bruit. Cardiovascular: Rate and Rhythm: Normal rate. Pulses: Normal pulses. Heart sounds: Normal heart sounds. Pulmonary: Effort: Pulmonary effort is normal. Abdominal: General: Bowel sounds are normal. Palpations: Abdomen is soft. Genitourinary: Rectum: Normal. Musculoskeletal: General: Normal range of motion. Cervical back: Normal range of motion. Right lower le+ Edema present. Left lower le+ Edema present. Skin: General: Skin is warm and dry. Neurological: General: No focal deficit present. Mental Status: She is alert. Psychiatric: Mood and Affect: Mood normal. Behavior: Behavior normal. Thought Content: Thought content normal. Judgment: Judgment normal. Current Medications Current Outpatient Medications: aspirin 81 mg EC tablet, Take 1 tablet (81 mg) by mouth once daily., Disp: , Rfl: baclofen (Lioresal) 20 mg tablet, Take 1 tablet (20 mg) by mouth once daily as needed., Disp: , Rfl: carvedilol (Coreg) 6.25 mg tablet, Take 1 tablet (6.25 mg) by mouth 2 times a day with meals., Disp: , Rfl: fluticasone (Flonase) 50 mcg/actuation nasal spray, As directed, Disp: , Rfl: gabapentin (Neurontin) 300 mg capsule, Take 1 capsule (300 mg) by mouth. 1 TAB AM 2NOON 2PM DAILY, Disp: , Rfl: loratadine (Claritin) 10 mg tablet, Take 1 tablet (10 mg) by mouth once daily., Disp: , Rfl: omeprazole (PriLOSEC) [address] capsule, Take 1 capsule (20 mg) by mouth once daily in the morning. Take before meals., Disp: , Rfl: traMADol (Ultram) 50 mg tablet, Take 1 tablet (50 mg) by mouth 2 times a day as needed., Disp: , Rfl: enalapril (Vasotec) 2.5 mg tablet, Take 1 tablet (2.5 mg) by mouth 2 times a day., Disp: 180 tablet, Rfl: 3 torsemide (Demadex) 20 mg tablet, Take 1 tablet (20 mg) by mouth once daily., Disp: 90 tablet, Rfl:3 Assessment/Plan There are no diagnoses linked to this encounter. [facility] Work Phone: [phone]) [phone] Instructions* Patient Instructions* Neha Westbrook LPN - 03/02/2023 10:00 AM EDT Please bring all medicines, vitamins, and herbal supplements with you when you come to the office. Prescriptions will not be filled unless you are compliant with your follow up appointments or have a follow up appointment scheduled as per instruction of your physician. Refills should be requested at the time of your visit. [facility] Work Phone: [phone]) 479-587910-30-2023 Evaluation note* Encounter Date Diagnosis Assessment Notes Treatment Notes Treatment Clinical Notes Jan, Dysuria (ICD-10 - R30.0) 12Bis Other 10-26-2023 Evaluation note* Encounter Date Diagnosis Assessment Notes Treatment Notes Treatment Clinical Notes Jan, Lumbar stenosis with neurogenic claudication (ICD-10 - M48.062) Independently reviewed the MRI of the lumbar spine and the report. This patient has severe stenosis at L3-4 Which is significantly worse than her previous study. Patient has definitely got neurogenic claudication is incapacitated by symptoms. She can no longer tolerate the symptoms and is in need of decompression hardware placement at L3-4 with revision of her L4-5 hardware. She will need to be braced for 3 months postop for mobilization of the spine for pain control and to allow healing. She needs pedicle screws L3-L4 with removal of the L4-5 screws placed previously. Interbody fusion and lateral fusion. Patient understands indication operation postop course risk benefits of surgery and complications to include spinal fluid leak infection hardware failure paralysis nerve damage incomplete relief of symptoms. She would like to proceed with surgical intervention. Jan, History of lumbar fusion (ICD-10 - Z98.1) 12Bis Other 10-23-2023 Evaluation note* Encounter Date Diagnosis Assessment Notes Treatment Notes Treatment Clinical Notes Jan, Acute bilateral low back pain without sciatica (ICD-10 - M54.50) 12Bis Other 10-23-2023 Evaluation note* Encounter Date Diagnosis Assessment Notes Treatment Notes Treatment Clinical Notes Jan, Dysuria (ICD-10 - R30.0) 12Bis Other 10-02-2023 Evaluation note* Encounter Date Diagnosis Assessment Notes Treatment Notes Treatment Clinical Notes Jan, Osteopenia of left forearm (ICD-10 - M85.832) 12Bis Other 09-21-2023 Evaluation note* Encounter Date Diagnosis Assessment Notes Treatment Notes Treatment Clinical Notes Jan, Spondylolisthesis, lumbar region (ICD-10 - M43.16) I evaluated the last x-ray of the lumbar spine which was noted on her last visit which shows good intact hardware beginning of fusion. Patient has pain in the back of hips it could be the beginning of radiculopathy could be hip inflammation it is very difficult to tell she is now 2 years status post DEXA scan and needs a new one she has had a second injection of Reclast. I have given the patient a 9-day prednisone taper for her pain, I would like a new MRI of the lumbar spine to ensure there is no new pathology which could be causing her symptoms. Depending on findings a plan will be made. Jan, History of lumbar fusion (ICD-10 - Z98.1) Jan, Age-related osteoporosis without current pathological fracture (ICD-10 - M81.0) Jan, Pain in right hip (ICD-10 - M25.551) Jan, Pain in left hip (ICD-10 - M25.552) 12Bis Other 09-07-2023 Evaluation note* Encounter Date Diagnosis Assessment Notes Treatment Notes Treatment Clinical Notes Jan, Medicare annual wellness visit, subsequent (ICD-10 - Z00.00) Personalized health advice was given to the beneficiary including a written plan for screenings discussed and provided. Advanced care planning reviewed and/or information given as requested. Additional counseling was provided here today in regards to, [ ]. The above visit was performed by [ ], under direct supervision of [ ]. Document reviewed and amended by provider signed below. Jan, Stage 3a chronic kidney disease (ICD-10 - N18.31) The patient is instructed on adequate control of hypertension and diabetes, if appropriate. They are also educated on the associated risks of NSAIDs and PPI use with kidney disease. They were instructed on adequate fluid balance and to avoid dehydration. Jan, Primary hypertension (ICD-10 - I10) This patient is instructed to consume a healthy, low-fat, low-salt diet. They are also encouraged to continue exercise to achieve/maintain a normal BMI. Jan, Lumbar spondylosis (ICD-10 - M47.816) The patient is instructed to avoid bending, twisting or lifting. They are to use intermittent heat and ice as needed. They may schedule a massage or gentle manipulation. They may safely use Tylenol as needed. Jan, Gastroesophageal reflux disease with esophagitis without hemorrhage (ICD-10 - K21.00) Diet instructions: Smaller portions, avoid eating and laying flat, avoid eating or drinking prior to bedtime. Weight loss. Jan, Screening mammogram for breast cancer (ICD-10 - Z12.31) UtD w/ surveillance mammograms w/ Oncology Instructed patient on monthly SBE and yearly mammograms. Jan, Acute bilateral low back pain without sciatica (ICD-10 - M54.50) Heat/ice and lidocaine patches Stretching exercises. Tramadol/Prednison e Discussed PT, pain management Jan, Primary insomnia (ICD-10 - F51.01) COnsistent sleep routine. Avoid eating, exercise, TV, Phone, computer prior to bedtime Jan, Fatigue, unspecified type (ICD-10 - R53.83) check labs: CBC, BS, TSH 12Bis Other 04-14-2023 Evaluation note* Encounter Date Diagnosis Assessment Notes Treatment Notes Treatment Clinical Notes Aug, Benign hypertension with chronic kidney disease, stage III (ICD-10 - I12.9) 12Bis Other 04-04-2023 Evaluation note* Encounter Date Diagnosis Assessment Notes Treatment Notes Treatment Clinical Notes Aug, Overactive bladder (ICD-10 - N32.81) 12Bis Other 03-16-2023 Evaluation note* Encounter Date Diagnosis Assessment Notes Treatment Notes Treatment Clinical Notes Jul, Overactive bladder (ICD-10 - N32.81) Timed voiding recommended. Avoid caffeine TRial of antispasmodic Jul, Overweight (BMI 25.0-29.9) (ICD-10 - E66.3) This patient has been instructed on a low-fat, high-fiber diet. They are instructed to reduce calories, portion sizes and snacks. It is recommended that they exercise for 30 minutes, 3-5 times weekly. 12Bis Other 02-21-2023 Evaluation note* Encounter Date Diagnosis Assessment Notes Treatment Notes Treatment Clinical Notes Jun, Spondylolisthesis, lumbar region (ICD-10 - M43.16) At 3 months postop the patient now can leave her brace.She has good relief of Her leg pain. She is very happy with her progress I will see her back in 3 months with an x-ray.Her x-ray today looks good. 12Bis Other 01-20-2023 Evaluation note* Encounter Date Diagnosis Assessment Notes Treatment Notes Treatment Clinical Notes May, Dysuria (ICD-10 - R30.0) 12Bis Other 01-17-2023 History of Present illness Narrative* Joaquin Mercado MD - 05/19/2022 8:05 AM EST PATIENT NAME: Renuka Owen DATE: 05/19/2022 PRIMARY CARE PHYSICIAN: Dr. Mervin Jacob OTHER PHYSICIANS: Dr. Coley, Dr. Artur Sutherland, Dr. Snyder, Dr. Ortega Portions of this encounter note have been copied from the note from 04/08/2021 and has been updated where appropriate, and reflect my current medical decision making from today. CC: This is a 71 year old female with a history of breast cancer, seen for scheduled follow-up. INTERIM HISTORY: Since the patient's last visit here she apparently developed acute right-sided chest pain on 05/10/2022. She was seen at [facility] emergency room and admitted for evaluation. Chest CTA was negative. Cardiac work-up was negative. Apparently she was given IV NSAID, and the painresolved instantly. Most likely she had acute pleurisy. She has had no recurrent symptoms. 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 Otherwise she has had no significant medical changes. No changes in her right breast or left chest wall. No unusual pain or other systemic symptoms. MEDICATIONS: gabapentin (NEURONTIN) 300 mg capsule TAKE 1 CAPSULE BY MOUTH IN THE MORNING AND 2 CAPSULES IN THE AFTERNOON AND AT BEDTIME ALLERGY RELIEF, CETIRIZINE, 10 mg tablet traMADol (ULTRAM) 50 mg tablet every 6 hours as needed. baclofen (LIORESAL) 20 mg tablet Take 1 tablet by mouth daily at bedtime. hydroCHLOROthiazide (HYDRODIURIL, ESIDRIX) 25 mg tablet Take 25 mg by mouth once daily. iv contrast (will be provided with radiology test) MRI Pelvis Inject, intravenously, once for 1 dose. No IV access, insert saline lock prior to the beginning of sedation, infusion, injection of imaging exam. Discontinue saline lock post exam. If Pt has a central line or IVAD, may access for administration according to line specific nursing protocol. Once exam is complete flush line and de-access according to line specific nursing protocol in the MR contrast administration guidelines link. latanoprost (XALATAN) 0.005 % ophthalmic solution INSTILL 1 DROP INTO BOTH EYES EVERY DAY DIRECTED omeprazole (PRILOSEC) 20 mg capsule Take 20 mg by mouth once daily. carvedilol (COREG) 6.25 mg tablet Take 6.25 mg by mouth twice daily with meals. fluticasone (FLONASE) 50 mcg/actuation nasal spray 2 Sprays once daily. ALLERGIES: Penicillins and Lipitor [Atorvastatin Calcium] PAST MEDICAL HISTORY: PAST MEDICAL HISTORY Diagnosis Date Breast cancer, left breast (HCC) Bundle branch block left 05/03/2007 Hypercholesteremia Hypertension Mild depression (HCC) Osteoarthritis 05/03/1989 PONV (postoperative nausea and vomiting) S/P left mastectomy PAST SURGICAL HISTORY: PAST SURGICAL HISTORY Procedure Laterality Date BACK SURGERY HX 05/03/1995 BREAST BIOPSY CORE 03/11/2011 left breast BREAST RECONSTRUC W TISS EXPANDR 06/26/2011 left breast CHOLECYSTECTOMY 05/03/1975 HYSTERECTOMY HX 05/03/1989 MASTECTOMY, SIMPLE, COMPLETE 06/26/2011 skin-sparing left breast with ALND PAST SURGICAL HISTORY OF Left 2018 rotator cuff surgery TOTAL KNEE REPLACEMENT 05/03/2006 bilateral TUBAL LIGATION, REVIEW OF SYSTEMS: General: No weight loss, malaise or fevers. HEENT: Negative for frequent or significant headaches. No changes in hearing or vision, no nose bleeds or other nasal problems Respiratory: Negative for cough, wheezing or shortness of breath. Cardiovascular: Negative for chest pain, leg swelling or palpitations. GI: Negative for abdominal discomfort, blood in stools or black stools or change in bowel habits : No history of dysuria, frequency or incontinence Musculoskeletal: Negative for: joint pain or swelling, back pain and muscle pain Skin: Negative for lesions, rash, and itching. Hematology/Lymphology: Negative for prolonged bleeding, bruising easily or swollen nodes. Neuro: No history of paralysis, seizures or tremors. Fainting spell Positive neuropathy- See HPI. PHYSICAL EXAM: Vitals: BP 141/62 Pulse 66 Temp 36.3 C (97.4 F) (Temporal) Resp 18 Ht 157.5 cm (5' 2.01 ) Wt 71.2 kg (157 lb) SpO2 97% BMI 28.71 kg/m ECOG 1 Exam limited to gross visualization where appropriate due to COVID-19. Gen.: This is an age-appropriate patient in no acute distress. Head: Appears atraumatic with no visible lesions. Eyes: Pupils equally round and reactive to light, extraocular muscles are intact. Neck: Supple. Mouth: Mucous membranes appeared to be moist. Respiratory: Appears to be respiring comfortably. Neurologic: Nonfocal to gross visualization. Alert and oriented 3. Psychiatric: No evidence of inappropriate anxiety or depression. Skin: Visible areas of skin without rash, lesions, wounds or petechiae. Lung sounds clear throughout. Lymph Nodes: No submandibular, cervical, supraclavicular, axillary or inguinal. lymphadenopathy present Breast: Left breast implant without palpable masses and no skin changes. Right breast without masses or skin changes. No palpable axillary lymphadenopathy. Positive for lymphedema in the left arm PATHOLOGY: 06/19/2020 Presacral tumor, en bloc coccygectomy Epidermoid cyst. LABORATORY DATA: Hemoglobin (g/dL) Date Value 05/19/2022 11.6 04/08/2021 13.2 Hematocrit (%) Date Value 05/19/2022 36.6 04/08/2021 41.4 WBC (k/uL) Date Value 05/19/2022 11.48 04/08/2021 7.65 Platelet Count (k/uL) Date Value 05/19/2022 389 04/08/2021 308 RADIOLOGY/OTHER STUDIES: 05/10/2022 Chest CTA ([facility]) No evidence for acute pulmonary embolism, thoracic aortic aneurysm, or aortic dissection. Mild cardiomegaly with trace 3 mm thick pericardial effusion. Mosaic attenuation of the bilateral lungs reflect sequelae of reactive airway inflammation. Moderate bilateral upper and lower lung linear scar. 02/05/2022 Diagnostic right mammogram ([facility]) Benign finding. No change from comparison. Recommend routine mammogram in 12 months. 04/08/2020 CT abdomen/pelvis ([facility]). 6.4 x 3.3 cm soft tissue density presacral mass inseparable from the posterior margin of the rectumof unknown etiology. No other intra-abdominal abnormalities. 01/17/2018 MRI L-spine Conclusion: 1. Moderate degenerative spondylosis, discogenic changes and facet osteoarthritis resulting in central and foraminal stenosis at several levels as detailed above. (See scanned documents) 01/05/2018 Whole body bone scan 1. Increased activity right superior L2 vertebral body, MRI without and with contrast is recommended to evaluate for fracture and metastatic disease. ASSESSMENT/PLAN: 1. Malignant neoplasm of left breast in female Locally advanced left breast cancer diagnosed March 2011. ER/MA negative, HER-2 negative (triplenegative). Status post preop chemotherapy with AC X 4 cycles April 2011 through May 2011. Status post left mastectomy June 2011. Final pathology revealed residual disease (ypT2, N2, M0). Postop the patient received adjuvant chemotherapy with Taxol X 05 July 2011 through September 2011. She subsequently received adjuvant chest wall radiation therapy. Status post left chest wall implant and right breast reconstruction. The patient has had no evidence of recurrent disease since. At this time we will continue routine follow-up. We will arrange for her yearly surveillance mammogram to be done January 2023. Return in 1 year for follow-up and labs. 2. 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 The patient was referred to [facility] colorectal surgery (Dr. Huber) and underwent surgical excision on 06/19/2020. Final pathology confirmed an epidermoid cyst with negative margins. Observation recommended. She has had no evidence ofrecurrence. We will monitor clinically and reevaluate as indicated if suspicious signs or symptoms develop. 2. Essential hypertension Stable on current medications, continue per PCP. 3. 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 Stable on current medications. 4. Atypical chest pain - suspected pleurisy The patient developed acute right-sided chest pain 05/10/2022. She was seen at [facility] emergency room and admitted for evaluation. Chest CTA was negative. Cardiac work-up was negative. Apparently she was given IV NSAID, and the pain resolved instantly. Most likely she had acute pleurisy. She has had no recurrent symptoms. 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 Joaquin Mercado MD [facility]* Encounter Date Diagnosis Assessment Notes Treatment Notes Treatment Clinical Notes May, Spondylolisthesis, lumbar region (ICD-10 - M43.16) Ms. Owen is doing well status post op 6 weeks PLIF states all symptoms are gone. Has an occasional low back pain. I independently reviewed the x-ray of the lumbar spine which shows good bony alignment and hardware placement and mild disc space narrowing noted. States completed physical therapy and continues to do the exercises at home. Will continue with wearing LSO brace and follow-up in 6 weeks with another xray May, Age-related osteoporosis without current pathological fracture (ICD-10 - M81.0) May, Fusion of lumbar spine (ICD-10 - M43.26) [facility] Other 01-05-2023 Evaluation note* Encounter Date Diagnosis Assessment Notes Treatment Notes Treatment Clinical Notes May, Primary hypertension (ICD-10 - I10) May, Spondylolisthesis, lumbar region (ICD-10 - M43.16) [facility] Other 12-13-2022 Evaluation note* Encounter Date Diagnosis Assessment Notes Treatment Notes Treatment Clinical Notes Apr, Spondylolisthesis, lumbar region (ICD-10 - M43.16) She is doing well post operative, denies pain and over all looks good. Wound healed and well approximated, clean dry and intact. Removed 20 lazara. Will continue with physical therpay. Xray ordered and follow up in 4 weeks [facility] Other 11-30-2022 Progress note Author Vivi Biggs [facility] April 01, 2022 8:09am Note Date/Time March 31, 2022 7:37am [facility] [address] [place] [address] Neurosurgery Progress Note Signed Patient: Renuka Owen MR#: [id number] : 1950 Acct:[id number] Age/Sex: 71 / F Adm Date: 2 Loc: Room: [address] [place] [address] Type: REG SDC Attending Dr: Devin Moreau MD Copies to: ~ Date of Service: 03/31/2022 Subjective Subjective HPI: Patient awake alert and oriented sitting comforably in bed. States was able to get up into the chair and to the bathroom without pain. Exam Physical Exam Vital Signs: Temp Pulse Resp BP Pulse Ox O2 Del Method O2 Flow Rate 98.9 F 76 18 113/73 99 Room Air 2 03/31/22 07:22 03/31/22 07:22 03/31/22 07:22 03/31/22 07:22 03/31/22 07:22 03/31/22 07:22 03/30/22 16:00 FiO2 21 03/31/22 00:09 Narrative: Incision dry Const General: cooperative and comfortable Orientation: alert and oriented x3 HEENT Head: normal to inspection Ears: hearing grossly normal bilaterally Nose: external nose normal Eyes General: appearance normal, both eyes and all related structures Neck Neck: normal visual inspection Chest Chest palpation & inspection: normal inspection of the chest Resp Effort & Inspection: normal respiratory effort Assessment/Plan Assessment/Plan (1) Lumbar stenosis without neurogenic claudication: Plan: Postoperative day #1 the patient has good pain control and seems to be doing better with her legs bilaterally. We will increase activity consider discharge next 24 to 48 hours Code(s): M48.061 - Spinal stenosis, lumbar region without neurogenic claudication Status: Acute Documented By: LORI Mosqueda 0728 Signed By: <Electronically signed by HOANGWEI Biggs> 04/01/22 0809 <Electronically signed by MD Devin Moreau> 03/31/22 0737 [facility] Work Phone: 1(287) 832-621311-29-2022 Hospital Discharge instructionsAmbulatory Orders* Initiate Home Health Time Frame: 03/31/22, Location: Determined By Patient Additional Instructions DISCHARGE INSTRUCTIONS FOR POSTERIOR LUMBAR INTERBODY FUSION OR POSTERIOR LUMBAR FUSION DIET-regular home diet ACTIVITY - Wear brace when sitting and standing and out of bed - Activity as tolerated; No lifting over 15 pounds - Stairs as tolerated - Walk as much as possible - No driving until seen by physician; may ride in car -May shower tomorrow. When taking first shower leave dressing on complete shower remove dressing dry the wound and apply small amount of antibiotic ointment to the wound 1 time daily thereafter - Keep incision clean and dry OTHER - Call your provider's office for any fever, chills, nausea, vomiting, headache, numbness, or tingling. - Call your providers office and make an appointment to see your provider in 2 weeks. Use ice as needed for back spasm 20 minutes every 1-2 hours Use the prednisone provided if the leg pain returns to a significant degree after surgery. If it does not do not use the pred[facility]one[facility] Work Phone: 1(615) 838-708309-20-2022 Evaluation note* Encounter Date Diagnosis Assessment Notes Treatment Notes Treatment Clinical Notes Jan, Spondylolisthesis, lumbar region (ICD-10 - M43.16) I reviewed my last note I again reviewed the MRI of the lumbar spine and the new MRI of the lumbar spine that shows a probable synovial cyst on the left at L4-5. Jan, Arthropathy of left hip (ICD-10 - M16.12) This patient's pain is only at her hip. She went to orthopedics and I requested a therapeutic diagnostic interarticular hip injection and a trigger point sacroiliac injection was done instead that did not provide a great deal of benefit. I think this has delayed the patient's care, as I still think she has primary hip pathology. I am recommending pain management for a intra-articular diagnostic therapeutic left hip injection. I suspect the majority of her pain is coming from this, I doubt at this point it is coming from the findings on the MRI. I will see the patient back in about 6 weeks [facility] Other 08-30-2022 Evaluation note* Encounter Date Diagnosis Assessment Notes Treatment Notes Treatment Clinical Notes Dec, Arthropathy of left hip (ICD-10 - M16.12) Dec, Spondylolisthesis , lumbar region (ICD-10 - M43.16) This patient has had good relief overall of the right lower extremity with surgery. Independent review of flexion-extension x-rays today shows slightly more spondylolisthesis than preoperative. But the patient's pain is strictly within the left hip with range of motion and palpation. I think she needs to see orthopedics for evaluation and treatment, a referral will be sent. I would hold off on a new back MRI at this point. The patient did get Reclast about 3 months ago for osteoporosis. I will see her back in 6 weeks [facility] Other 07-05-2022 Evaluation note* Encounter Date Diagnosis Assessment Notes Treatment Notes Treatment Clinical Notes Oct, Lumbar stenosis with neurogenic claudication (ICD-10 - M48.062) At 1 month postop this patient is actually doing well with exception of some tingling in her calf. Overall she is doing well, she understands the general do's and don'ts. I prescribed 20 more tramadol in case she needs it in the future otherwise I think she could get on without pain medication in the future. I will see her in the office in 2 months for reevaluation. [employer] [facility] [employer] Other 06-09-2022 Progress note Author Devin Moreau [facility] October 09, 2021 7:38am Note Date/Time October 09, 2021 7:38a m [facility] [address] [place] [address] Neurosurgery Progress Note Signed Patient: Renuka Owen MR#: [id number] : 1950 Acct:[id number] Age/Sex: 70 / F Adm Date: 2 Loc: 4 Room: [address] [place] [address] Type : REG [facility] Attending Dr: Devin Moreau MD Copies to: ~ Date of Service: 10/09/2021 Subjective Subjective HPI: Patient in bed awake and alert. Says her leg feels better, her back pain is tolerable. Exam Physical Exam Vital Signs: Temp Pulse Resp BP Pulse Ox 97.7 F 67 18 98/61 L 95 10/09/21 04:35 10/09/21 04:35 10/09/21 04:35 10/09/21 04:35 10/09/21 04:35 Narrative: Lower extremity strength and motion baseline Gait grossly normal Incision clean and dry Assessment/Plan Assessment/Plan (1) Lumbar stenosis without neurogenic claudication: Plan: Postoperative day #1 the patient seems to have definite improvement of leg pain with very little back discomfort. A full discussion for home-going was given she will be discharged home for follow-up in 1 month Code(s): M48.061 - Spinal stenosis, lumbar region without neurogenic claudication Status: Acute Documented By: Devin Moreau MD 10/09/21 0735 Signed By: <Electronically signed by MD Devin Moreau> 10/09/21 0738 [facility] Work Phone: 1([phone]) 557-244904-07-2022 Evaluation note* Encounter Date Diagnosis Assessment Notes Treatment Notes Treatment Clinical Notes Aug, Spondylolisthesis, lumbar region (ICD-10 - M43.16) Aug, Lumbar stenosis with neurogenic claudication (ICD-10 - M48.062) I have independently reviewed the MRI of the lumbar spine and the plain x-ray with flexion and extension views and the DEXA scan. The patient's DEXA scan shows a -2.5 in the forearm which is indicative of significant osteoporosis. This patient may well need a lumbar fusion in the future and this needs to be addressed now. I have encouraged the patient to aggressively seek care for this. I have given her a copy of her DEXA and have personally written a note on it for her primary care physician regarding treatment fo the osteoporosis. She has a mild spondylolisthesis L4-5 and L3-4. I think L4-5 is more symptomatic right more than left. On flexion-extension view she has no abnormal motion or instability. I am recommending a simple decompressive lumbar laminectomy. She may need a future fusion, it is difficult to say, but I think this may help solve her problems. She has existing atherosclerotic heart disease and needs cardiac clearance. 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 I reviewed the imaging face to face with the patient and discussed treatment option in detail, along with risks and benefits of surgery. I discussed with the patient the indication operation postop course risk benefits of surgery and complications including infection nerve damage incomplete relief of symptoms and potential future fusion. Patient understands and would like to proceed with surgical intervention. Because of upcoming social events this will probably need to wait till the end of August or beginning of October. 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 06/20/2020 documented as of this encounter (statuses as of 05/20/2022) [facility] History of Past illness Narrative* Problem Noted Date Diagnosed Date Resolved Date Rectal tumor 06/19/2020 06/20/2020 documented as of this encounter (statuses as of 06/23/2023) [facility] Devin Moreau [facility] April 01, 2022 10:58am Note Date/Time April 01, 2022 10:57am [facility] [address] [place] [address] Discharge Summary Signed Patient: Renuka Owen MR#: [id number] : 1950 Acct:[id number] Age/Sex: 71 / F Adm Date: 2 Loc: Room: [address] [place] [address]: Devin Moreau MD Copies to: DO Devin Jama MD~ Providers Date of Admission: 03/30/22 Date of Discharge: 04/01/22 Discharging Provider: Devin Moreau Primary Care Provider: Mervin Jacob Consults: 03/30/22 11:36 Consult to Occupational Therapy Routine Consult to Physical Therapy Routine Discharge Diagnosis (1) Lumbar stenosis without neurogenic claudication: Final Diagnosis Final Discharge Diagnosis: Lumbar stenosis with neurogenic claudication Lumbar spondylolisthesis Summary Hospital Course Hospital course: This is a 71-year-old female who initially had a decompressive lumbar laminectomy with spinal stenosis and spondylolisthesis that was felt not to be mobile. She did well for about 3 months and has had increasing leg pain left greater than right. It is felt that she has had increased instability she has developed a synovial cyst on her joints at the operated level now presents for elective decompression and fusion. She understands the risk and benefits. After surgery which was uncomplicated the patient had good control of pain. Postoperative day #2 she is ambulatory, comfortable, has done steps. She will be discharged home. Full home-going instructions were given. Condition Condition at Discharge: Stable Time Spent with Patient Time spent providing/coordinating discharge services (# min): 30 Surgeries and Procedures Operation Date: 03/30/22 07:30 Actual Procedures p OR PLIF L4-5 (Not Applicable) - Devin Moreau MD Exam Physical Exam Vital Signs: Temp Pulse Resp BP Pulse Ox O2 Del Method O2 Flow Rate 98.1 F 75 16 132/80 98 Room Air 2 04/01/22 07:54 04/01/22 07:54 04/01/22 07:54 04/01/22 07:54 04/01/22 07:54 04/01/22 08:00 03/30/22 16:00 FiO2 21 03/31/22 00:09 Narrative: Wound dry Wearing brace appropriately Lower extremity strength at baseline Alert and oriented by 3 Discharge Plan Discharge Plan Patient Disposition: Home Activity: Ambulate as Tolerated Diet: Regular Additional Instructions: DISCHARGE INSTRUCTIONS FOR POSTERIOR LUMBAR INTERBODY FUSION OR POSTERIOR LUMBARFUSION DIET-regular home diet ACTIVITY - Wear brace when sitting and standing and out of bed - Activity as tolerated; No lifting over 15 pounds - Stairs as tolerated - Walk as much as possible - No driving until seen by physician; may ride in car -May shower tomorrow. When taking first shower leave dressing on complete shower remove dressing dry the wound and apply small amount of antibiotic ointment to the wound 1 time daily thereafter - Keep incision clean and dry OTHER - Call your provider's office for any fever, chills, nausea, vomiting, headache,numbness, or tingling. - Call your providers office and make an appointment to see your provider in 2 weeks. Use ice as needed for back spasm 20 minutes every 1-2 hours Use the prednisone provided if the leg pain returns to a significant degree after surgery. If it does not do not use the prednisone Prescriptions: New cyclobenzaprine 10 mg tablet 10 mg PO TID PRN (Reason: back spasms) Qty: 40 0RF sulfamethoxazole-trimethoprim [Bactrim DS] 800-160 mg tablet 1 tab PO Q12H Qty: 10 0RF oxycodone 5 mg tablet 5 - 10 mg PO Q6H PRN (Reason: Pain) 8 Days Qty: 40 0RF prednisone 10 mg tablets,dose pack 1 dose pk PO PER PKG DIR Qty: 30 0RF Rx Instructions: take 4 tabs for 3 days then take 3 tabs for 3 days then take 2 tabs for 3 days then take 1 tab for 3 days Discontinued tramadol 50 mg tablet 50 mg PO BID Label Comments: TAKE 1 TABLET BY MOUTH EVERY 4 TO 6 HOURS NEEDED FOR PAIN baclofen 20 mg tablet 20 mg PO HS Label Comments: TAKE 1 TABLET BY MOUTH AT BEDTIME No Action acetaminophen 500 mg Tablet 500 mg PO BID PRN (Reason: Pain) Rx Instructions: Take with tramadol gabapentin 300 mg capsule 600 mg PO BID@1400,2200 Label Comments: TAKE 1 CAPSULE BY MOUTH IN THE MORNING AND 2 CAPSULES IN THE AFTERNOON AND ATBEDTIME calcium carbonate-vitamin D3 [Calcium 600 + D(3)] 600 mg-10 mcg (400 unit) Tablet 1 tab PO BID oxybutynin chloride 15 mg tablet extended release 24hr 15 mg PO DAILY Label Comments: TAKE 1 TABLET BY MOUTH EVERY DAY melatonin 10 mg Tablet 10 mg PO HS PRN (Reason: Sleep) carvedilol 6.25 mg tablet 6.25 mg PO BID Label Comments: TAKE 1 TABLET BY MOUTH TWICE A DAY gabapentin 300 mg capsule 300 mg PO QAM omeprazole 20 mg capsule,delayed release(DR/EC) 20 mg PO DAILY Label Comments: TAKE 1 CAPSULE BY MOUTH ON AN EMPTY STOMACH 30 MINUTES BEFORE BREAKFAST hydrochlorothiazide 25 mg tablet 25 mg PO DAILY Label Comments: TAKE 1 TABLET BY MOUTH EVERY DAY fluticasone propionate 50 mcg/actuation spray,suspension 2 spray INTRANASAL DAILY PRN (Reason: Nasal Congestion) Label Comments: INSTILL 2 SPRAYS INTO EACH NOSTRIL ONCE DAILY Other Ambulatory Orders: Initiate Home Health (Routine) Timeframe: [id number] Location: Determined by Patient Ordered By: Devin Moreau Follow Up: Devin Moreau MD [Active Staff] - 04/14/22 1:00 pm Documented By: Devin Moreau MD 04/01/22 1054 Signed By: <Electronically signed by MD Devin Moreau> 04/01/22 1058 [facility] Work Phone: Evaluation noteNo assessment information available [facility] Work Phone: Evaluation note* Diagnosis Onset Date Resolution Status Lumbar stenosis without neurogenic claudication acute [facility] Work Phone: Evaluation noteNo InformationNort eshtery Other Evaluation note* Diagnosis Malignant neoplasm of left breast in female, estrogen receptor negative, unspecified site of breast (HCC) 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 [facility] Malignant neoplasm of upper-outer quadrant of left breast in female, estrogen receptor negative (HCC)- Primary [facility] Diagnosis Mitral valve insufficiency, unspecified etiology Essential hypertension Unspecified essential hypertension Edema, unspecified type LBBB (left bundle branch block) Other left bundle branch block documented in this encounter [facility] Work Phone: Evaluation note* Diagnosis Mitral valve insufficiency, unspecified etiology- Primary Essential hypertension Unspecified essential hypertension Overweight with body mass index (BMI) of 29 to 29.9 in adult Edema, unspecified type Left ventricular systolic dysfunction documented in this encounter [facility] Work Phone: Evaluation note* Diagnosis Onset Date Resolution Status GERD (gastroesophageal reflux disease) acute Impaired mobility and activities of daily living acute Left bundle branch block acu te Lumbar stenosis without neurogenic claudication acute Neuropathy acute Osteoporosis acute Postoperative pain acute Impaired mobility and activities of daily living acute Left bundle branch block acu te Lumbar stenosis without neurogenic claudication acute Neuropathy acute Postoperative pain acute [facility] Work Phone: Evaluation note* Diagnosis Onset Date Resolution Status GERD (gastroesophageal reflux disease) acute Impaired mobility and activities of daily living acute Left bundle branch block acu te Lumbar stenosis without neurogenic claudication acute Neuropathy acute Osteoporosis acute Postoperative pain acute Impaired mobility and activities of daily living acute Left bundle branch block acu te Lumbar stenosis without neurogenic claudication acute Neuropathy acute Postoperative pain acute Lumbar adjacent segment disease with spondylolisthesis acute Spondylolisthesis, lumbar region acute Status post lumbar spinal fusion acute [facility] Work Phone: Evaluation note* Diagnosis Malignant neoplasm of upper-outer quadrant of left breast in female, estrogen receptor negative (HCC) (HCC)- Primary 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 [facility] Diagnosis Mitral valve insufficiency, unspecified etiology Essential hypertension Unspecified essential hypertension Left ventricular systolic dysfunction BMI 29.0-29.9,adult Never smoked tobacco documented in this encounter [facility] Work Phone: Evaluation note* Diagnosis Onset Date Resolution Status Lumbar adjacent segment disease with spondylolisthesis acute Spondylolisthesis, lumbar region acute Status post lumbar spinal fusion acute Inflammation of right sacroiliac joint acute Lumbar adjacent segment disease with spondylolisthesis acute Spondylolisthesis, lumbar region acute Status post lumbar spinal fusion acute [facility] Work Phone: Evaluation note* Diagnosis Onset Date Resolution Status Lumbar adjacent segment disease with spondylolisthesis acute Spondylolisthesis, lumbar region acute Status post lumbar spinal fusion acute Inflammation of right sacroiliac joint acute Lumbar adjacent segment disease with spondylolisthesis acute Spondylolisthesis, lumbar region acute Status post lumbar spinal fusion acute Chronic pain acute Other low back pain acute Sacroiliitis, not elsewhere classified acute [facility] Work Phone: Evaluation note* Diagnosis Onset Date Resolution Status Inflammation of right sacroiliac joint acute Lumbar adjacent segment disease with spondylolisthesis acute Spondylolisthesis, lumbar region acute Status post lumbar spinal fusion acute Chronic pain acute Other low back pain acute Sacroiliitis, not elsewhere classified acute Chemotherapy-induced peripheral neuropathy acute Chronic venous insufficiency of lower extremity acute Lumbar spondylosis acute Nocturnal leg cramps acute Chronic pain acute Other low back pain acute Sacroiliitis, not elsewhere classified acute [facility] Work Phone: Evaluation note* Diagnosis Onset Date Resolution Status Chronic pain acute Other low back pain acute Sacroiliitis, not elsewhere classified acute Chemotherapy-induced peripheral neuropathy acute Chronic venous insufficiency of lower extremity acute Lumbar spondylosis acute Nocturnal leg cramps acute Chronic pain acute Other low back pain acute Sacroiliitis, not elsewhere classified acute Lumbar spondylosis acute Status post lumbar spinal fusion acute [facility] Work Phone: Evaluation note* Diagnosis Onset Date Resolution Status Chronic pain acute Other low back pain acute Sacroiliitis, not elsewhere classified acute Chemotherapy-induced peripheral neuropathy acute Chronic venous insufficiency of lower extremity acute Lumbar spondylosis acute Nocturnal leg cramps acute Chronic pain acute Other low back pain acute Sacroiliitis, not elsewhere classified acute Lumbar spondylosis acute Status post lumbar spinal fusion acute Sinusitis acute [facility] Work Phone: Evaluation note* Diagnosis Onset Date Resolution Status Chemotherapy-induced peripheral neuropathy acute Chronic venous insufficiency of lower extremity acute Lumbar spondylosis acute Nocturnal leg cramps acute Chronic pain acute Other low back pain acute Sacroiliitis, not elsewhere classified acute Lumbar spondylosis acute Status post lumbar spinal fusion acute Sinusitis acute Chronic pain acute Other low back pain acute Sacroiliitis, not elsewhere classified acute [facility] Work Phone: Evaluation note* Diagnosis Onset Date Resolution Status Chemotherapy-induced peripheral neuropathy acute Chronic venous insufficiency of lower extremity acute Lumbar spondylosis acute Nocturnal leg cramps acute Chronic pain acute Other low back pain acute Sacroiliitis, not elsewhere classified acute Lumbar spondylosis acute Status post lumbar spinal fusion acute Sinusitis acute Chronic pain acute Other low back pain acute Sacroiliitis, not elsewhere classified acute Degenerative arthritis of left foot acute Left foot pain acute [facility] Work Phone: Evaluation note* Diagnosis Onset Date Resolution Status Chronic pain acute Other low back pain acute Sacroiliitis, not elsewhere classified acute Lumbar spondylosis acute Status post lumbar spinal fusion acute Sinusitis acute Chronic pain acute Other low back pain acute Sacroiliitis, not elsewhere classified acute Degenerative arthritis of left foot acute Left foot pain acute [facility] Work Phone: evaluation note* Diagnosis Onset Date Resolution Status Lumbar spondylosis acute Status post lumbar spinal fusion acute Sinusitis acute Chronic pain acute Other low back pain acute Sacroiliitis, not elsewhere classified acute Degenerative arthritis of left foot acute Left foot pain acute Chronic pain acute Other low back pain acute Sacroiliitis, not elsewhere classified acute [facility] Work Phone: Evaluation note* Diagnosis Onset Date Resolution Status Chronic pain acute Other low back pain acute Sacroiliitis, not elsewhere classified acute Degenerative arthritis of left foot acute Left foot pain acute Chronic pain acute Other low back pain acute Sacroiliitis, not elsewhere classified acute History of lumbar fusion acu te Pain of right sacroiliac joint acute [facility] Work Phone: Evaluation note* Diagnosis Onset Date Resolution Status Degenerative arthritis of left foot acute Left foot pain acute Chronic pain acute Other low back pain acute Sacroiliitis, not elsewhere classified acute History of lumbar fusion acu te Pain of right sacroiliac joint acute Chemotherapy-induced peripheral neuropathy acute Chronic venous insufficiency of lower extremity acute Lumbar spondylosis acute Nocturnal leg cramps acute [facility] Work Phone: Evaluation note* Diagnosis Onset Date Resolution Status Degenerative arthritis of left foot acute Left foot pain acute Chronic pain acute Other low back pain acute Sacroiliitis, not elsewhere classified acute History of lumbar fusion acu te Pain of right sacroiliac joint acute Allergic rhinitis acute Chemotherapy-induced peripheral neuropathy acute Nasal polyp, posterior acute Tinnitus of both ears acute [facility] Work Phone: Evaluation note* Diagnosis Chronic sinusitis, unspecified location- Primary documented in this encounter [facility]Evaluation [facility]* Diagnosis Chronic frontal sinusitis- [facility]* Type Description Date Medical History Breast Cancer Surgical History hysterectomy Surgical History cholecystectomy Surgical History lower back Surgical History bilateral knee replacement Surgical History left rotator cuff repair Surgical History left mastectomy Surgical History breast reconstruction Surgical History benign presacral mass removal 0 06/2020 Hospitalization History See Above 12Bis Other History general Narrative - Reported* Type Description Date Medical History Breast Cancer Surgical History hysterectomy Surgical History cholecystectomy Surgical History lower back Surgical History bilateral knee replacement Surgical History left rotator cuff repair Surgical History left mastectomy Surgical History breast reconstruction Surgical History 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 Moreau 04/01/2022 Hospitalization History See Above 12Bis Other History general Narrative - Reported* Type Description Date Medical History Breast Cancer Medical History Abdominal pain Medical History LUQ abdominal pain Medical History Constipation Medical History Lumbar spondylolysis Medical History Spondylolisthesis, lumbar region Medical History Age-related osteopor osis without current pathological fracture Medical History Arthropathy of left hip Medical History Chronic pain Medical History Essential hypertension Medical History Dysphagia Medical History GERD (gastroesophageal reflux di sease) Medical History Primary insomnia Medical History Pyelonephritis, acute Medical History Benign hypertension with chronic kidney disease, stage III Medical History Left bundle branch block Medical History Syncope, unspecified syncope typ e Medical History Hypercholesterolemia Medical History Menopause Medical History Chronic tension-type headache, i ntractable Medical History Major depression in remission Medical History Non-rheumatic mitral regurgitati on Medical History High risk medication use Medical History Vitamin D deficiency Medical History Nonischemic cardiomyopathy Surgical History hysterectomy Surgical History cholecystectomy Surgical History lower back Surgical History bilateral knee replacement Surgical History left rotator cuff repair Surgical History left mastectomy Surgical History breast reconstruction Surgical History 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 Moreau 04/01/2022 Hospitalization History See Above 12Bis Other History general Narrative - Reported* Type Description Date Medical History Breast Cancer Medical History Abdominal pain Medical History LUQ abdominal pain Medical History Constipation Medical History Lumbar spondylolysis Medical History Spondylolisthesis, lumbar region Medical History Age-related osteopor osis without current pathological fracture Medical History Arthropathy of left hip Medical History Chronic pain Medical History Essential hypertension Medical History Dysphagia Medical History GERD (gastroesophageal reflux di sease) Medical History Primary insomnia Medical History Pyelonephritis, acute Medical History Benign hypertension with chronic kidney disease, stage III Medical History Left bundle branch block Medical History Syncope, unspecified syncope typ e Medical History Hypercholesterolemia Medical History Menopause Medical History Chronic tension-type headache, i ntractable Medical History Major depression in remission Medical History Non-rheumatic mitral regurgitati on Medical History High risk medication use Medical History Vitamin D deficiency Medical History Nonischemic cardiomyopathy Surgical History hysterectomy Surgical History cholecystectomy Surgical History lower back Surgical History bilateral knee replacement Surgical History left rotator cuff repair Surgical History left mastectomy Surgical History breast reconstruction Surgical History 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 Moreau 04/01/2022 Surgical History Colonoscopy 01/2018 Hospitalization History See Above 12Bis Other History general Narrative - Reported* Type Description Date Medical History Breast Cancer Medical History Abdominal pain Medical History LUQ abdominal pain Medical History Constipation Medical History Lumbar spondylolysis Medical History Spondylolisthesis, lumbar region Medical History Arthropathy of left hip Medical History Chronic pain Medical History Essential hypertension Medical History Dysphagia Medical History GERD (gastroesophageal reflux di sease) Medical History Primary insomnia Medical History Pyelonephritis, acute Medical History Benign hypertension with chronic kidney disease, stage III Medical History Left bundle branch block Medical History Syncope, unspecified syncope typ e Medical History Hypercholesterolemia Medical History Menopause Medical History Chronic tension-type headache, i ntractable Medical History Major depression in remission Medical History Non-rheumatic mitral regurgitati on Medical History High risk medication use Medical History Vitamin D deficiency Medical History Nonischemic cardiomyopathy Medical History Osteopenia Surgical History hysterectomy Surgical History cholecystectomy Surgical History lower back Surgical History bilateral knee replacement Surgical History left rotator cuff repair Surgical History left mastectomy Surgical History breast reconstruction Surgical History 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 Moreau 04/01/2022 Surgical History Colonoscopy 01/2018 Hospitalization History See Above 12Bis Other History general Narrative - Reported* Type Description Date Medical History Breast Cancer Medical History Abdominal pain Medical History LUQ abdominal pain Medical History Constipation Medical History Lumbar spondylolysis Medical History Spondylolisthesis, lumbar region Medical History Arthropathy of left hip Medical History Chronic pain Medical History Essential hypertension Medical History Dysphagia Medical History GERD (gastroesophageal reflux di sease) Medical History Primary insomnia Medical History Pyelonephritis, acute Medical History Benign hypertension with chronic kidney disease, stage III Medical History Left bundle branch block Medical History Syncope, unspecified syncope typ e Medical History Hypercholesterolemia Medical History Menopause Medical History Chronic tension-type headache, i ntractable Medical History Major depression in remission Medical History Non-rheumatic mitral regurgitati on Medical History High risk medication use Medical History Vitamin D deficiency Medical History Nonischemic cardiomyopathy Medical History Osteopenia Surgical History hysterectomy and unilateral oop horectomy Surgical History cholecystectomy Surgical History lower back Surgical History bilateral knee replacement Surgical History left rotator cuff repair Surgical History left mastectomy Surgical History breast reconstruction Surgical History 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 Moreau 04/01/2022 Surgical History Colonoscopy 01/2018 Hospitalization History See Above 12Bis Other History general Narrative - Reported* Type Description Date Medical History Breast Cancer Medical History Abdominal pain Medical History LUQ abdominal pain Medical History Constipation Medical History Lumbar spondylolysis Medical History Spondylolisthesis, lumbar region Medical History Arthropathy of left hip Medical History Chronic pain Medical History Essential hypertension Medical History Dysphagia Medical History GERD (gastroesophageal reflux di sease) Medical History Primary insomnia Medical History Pyelonephritis, acute Medical History Benign hypertension with chronic kidney disease, stage III Medical History Left bundle branch block Medical History Syncope, unspecified syncope typ e Medical History Hypercholesterolemia Medical History Menopause Medical History Chronic tension-type headache, i ntractable Medical History Major depression in remission Medical History Non-rheumatic mitral regurgitati on Medical History High risk medication use Medical History Vitamin D deficiency Medical History Nonischemic cardiomyopathy Medical History Osteopenia Surgical History hysterectomy and unilateral oop horectomy Surgical History cholecystectomy Surgical History lower back Surgical History bilateral knee replacement Surgical History left rotator cuff repair Surgical History left mastectomy Surgical History breast reconstruction Surgical History 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 Moreau 04/01/2022 Surgical History Colonoscopy 01/2018 Surgical History PLIF 04/2023 Hospitalization History See Above 12Bis Other Hospital Discharge instructionsAmbulatory Orders* Referral to Pain Management Location: None [facility] Work Phone: Progress note Author Devin Moreau [facility] April 01, 2022 10:53am Note Date/Time April 01, 2022 10:53am [facility] [address] [place] [address] Neurosurgery Progress Note Signed Patient: Renuka Owen MR#: [id number] : 1950 Acct:[id number] Age/Sex: 71 / F Adm Date: 2 Loc: Room: [address] [place] [address] Type: REG SDC Attending Dr: Devin Moreau MD Copies to: ~ Date of Service: 04/01/2022 Subjective Subjective HPI: Patient says left leg feels much better than preop. Back pain is tolerable Exam Physical Exam Vital Signs: Temp Pulse Resp BP Pulse Ox O2 Del Method O2 Flow Rate 98.1 F 75 16 132/80 98 Room Air 2 04/01/22 07:54 04/01/22 07:54 04/01/22 07:54 04/01/22 07:54 04/01/22 07:54 04/01/22 08:00 03/30/22 16:00 FiO2 21 03/31/22 00:09 Narrative: Lower extremity strength at baseline Gait normal Wound dry Wearing brace appropriately Assessment/Plan Assessment/Plan (1) Lumbar stenosis without neurogenic claudication: Plan: Postoperative day #2 the patient is doing very well. She remains very comfortable with increase activity. She has done steps. Full home-going instructions have been given and she will be discharged home Code(s): M48.061 - Spinal stenosis, lumbar region without neurogenic claudication Status: Acute Documented By: Devin Moreau MD 04/01/22 1052 Signed By: <Electronically signed by MD Devin Moreau> 04/01/22 1053 [facility] Work Phone: Reason for referral (narrative)* Diagnostic Procedure Only (Routine) - Pending Review Specialty Diagnoses / Procedures Referred By Contac t Referred To Contact [facility] Diagnoses Malignant neoplasm of upper-outer quadrant of left breast in female, estrogen receptor negative (HCC) Procedures [facility] RT DIAGNOSTIC MAMMOGRAPHY COMPUTER-AIDED DETCJ [facility] Joaquin Mercado MD [address] [place] [address] [place] [address] [facility] [address] [place] [address] Referral ID Status Reason Start Date Expiration Date Visits Requested Visits Authorized [id number] Pending Review Auto-Generat ed Referral 05/19/2022 06/18/2023 1 [facility] Consultation (Routine) - Authorized Specialty Diagnoses / Procedures Referred By Contac t Referred To Contact Cardiology Diagnoses Mitral valve insufficiency, unspecified etiology Essential hypertension Procedures Follow Up In Cardiology Bryce Hendrickson MD [address], [address] [place] [id number] Bryce Hendrickson MD [address] [place] [address] Referral ID Status Reason Start Date Expiration Date V isits Requested Visits Authorized [id number] Authorized 03/02/2023 03/01/2024 1 1 [facility] Work Phone: Reason for referral (narrative)* Consultation (Routine) - Authorized Specialty Diagnoses / Procedures Referred By Contac t Referred To Contact Cardiology Diagnoses Mitral valve insufficiency, unspecified etiology Procedures Follow Up In Cardiology Bryce Hendrickson MD [address] [place] [address] Bryce Hendrickson MD [address] [facility] [address] [place] [address] Referral ID Status Reason Start Date Expiration Date V isits Requested Visits Authorized [id number] Authorized 03/18/2023 03/17/2024 1 1 [facility] Work Phone: Reason for referral (narrative)* Diagnostic Procedure Only (Routine) - Pending Review Specialty Diagnoses / Procedures Referred By Contac t Referred To Contact [facility] Diagnoses Malignant neoplasm of upper-outer quadrant of left breast in female, estrogen receptor negative (HCC) (HCC) Procedures [facility] RIGHT DIAGNOSTIC MAMMOGRAPHY COMPUTER-AIDED DETCJ [facility] Joaquin Mercado MD [address] [place] [address] [place] [address] [facility] [address] [place] [address] Referral ID Status Reason Start Date Expiration Date Visits Requested Visits Authorized [id number] Pending Review Auto-Generat ed Referral 06/22/2023 07/21/2024 [address] [facility] for visit NarrativePain management referral updateNort eshtery Other Summary Purpose Family History No Family History Records Found Relationship Condition Age at Onset Recorded Date/T demetria Not Specified Malignant neoplasm of breast Unknown father Malignant neoplasm of testicle Unknown brother Leukemia Unknown Unknown Family Member Name Dates Details No pertinent family history: Mother(V49.89, Z78.9) Status:Active Unknown Family Member Name Dates Details No pertinent family history: Mother(V49.89, Z78.9) Status:Active Unknown Family Member Name Dates Details No pertinent family history: Mother(V49.89, Z78.9) Status:Active Unknown Family Member Name Dates Details No pertinent family history: Mother(V49.89, Z78.9) Status:Active Unknown Family Member Name Dates Details No pertinent family history: Mother(V49.89, Z78.9) Status:Active Relationship Condition Age at Onset Recorded Date/T demetria Not Specified Malignant neoplasm of breast Unknown father Malignant neoplasm of testicle Unknown brother Leukemia Unknown father Unknown Relationship Condition Age at Onset Recorded Date/T demetria mother Malignant neoplasm of breast Unknown father Malignant neoplasm of testicle Unknown brother Leukemia Unknown father Unknown Relationship Condition Age at Onset Recorded Date/T demetria mother Malignant neoplasm of breast Unknown father Malignant neoplasm of testicle Unknown Unknown brother Leukemia Unknown Advance Directives No Advanced Directives Records Found Advance Directive Response Recorded Date/ Time Advance Directives No October 03 10:51am Advance Directive Response Recorded Date/ Time Advance Directives No October 03 9:51am Documents on File Type Date Recorded 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 Expl anation Advance Directive(s) 06/07/2020 2:34 PM Documents on File Type Date Recorded 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 Saman Huber MD DISCHARGE SUMMARY PATIENT NAME: Renuka Owen ADMISSION DATE: 06/19/2020 DISCHARGE DATE: 06/20/2020 ATTENDING PHYSICIAN: Saman Huber Code Status: Not on file Highest Readmission Risk Score: 11 The 30 day readmissions risk score is derived from an internally validated risk model which evaluates patient level characteristics, utilization history, medication orders and lab results up until the day of discharge. Patients with a score of 40 or above are considered highest risk for readmission. Specific patient level drivers (more content not included)... Note HNO ID: [id number] Author: Yissel Reddy) Slivurszula Service: Anesthesiology Author Type: Nurse Acetone Recovery Worker Type: Anesthesia Procedure Notes Filed: 06/19/2020 2:41 PM Note Text: ANESTHESIOLOGY PROCEDURE NOTE Airway General Information Procedure Start Time/Medication Administration: 06/19/2020 2:25 PM Patient location during procedure: OR Timeout Performed Pre-procedure: timeout performed Patient identity confirmed: arm band and patient Staffing Anesthesiologist: Ricardo Arvizu AOC AADC OPERATIONS STAFF OFFICER: Robyn Reddy) Slivurszula Performed by: JENNI Indications and Patient Condition Preoxygenated: yes Patient position: sniffing Difficult Mask: No Indications for airway management: anesthesia anesthesia circuit Method: asleep Final Airway Details Final airway type: endotracheal airway Final Endotracheal Airway: ETT Cuffed: yes Successful intubation technique: direct laryngoscopy Endotracheal tube insertion site: oral Blade: Karol Blade size: #4 ETT size (mm): 7.0 Measured from: lips Measurement (cm): 20 Placeme (more content not included)... Note HNO ID: [id number] Author: Karuna He (Fel) Service: Colorectal Author Type: Fellow Type: Brief Op Note Filed: 06/19/2020 4:17 PM Note Text: BRIEF OPERATIVE NOTE - COLORECTAL SURGERY Log ID: [id number] Surgery/Procedure Date: 06/19/2020 Incision/Procedure Start Time: 2:46 PM Incision Close/Procedure End Time: 4:00 PM Surgeon(s) and Manager Balance(s): Surgeon(s) and Role: * Saman Huber - Primary * Kota Ren - Resident - Assisting * Merced He (Fel) - Fellow No Additional Staff Procedures and Anesthesia: Procedure(s) and Anesthesia Type: * EXCISION TUMOR PRESACRAL [9391] - General * COCCYGECTOMY - General Stoma Type: N/A Findings: Presacral tumor, resected with en bloc coccygectomy Estimated Blood Loss: 20mL Specimens: Presacral tumor Diagnosis Code(s): Pre-Op Diagnosis Codes: * Presacral mass [R19.09] Postop Diagnosis: Presacral tumor Drains: None Wound Classification: Class 1, operative wound clean, non-traumatic, with no inflammation encountered, no break in techniq (more content not included)... Procedure Findings Note HNO ID: [id number] Author: Yissel Reddy) Slivurszula Service: Anesthesiology Author Type: Nurse Acetone Recovery Worker Type: Anesthesia Procedure Notes Filed: 06/19/2020 2:41 PM Note Text: ANESTHESIOLOGY PROCEDURE NOTE Airway General Information Procedure Start Time/Medication Administration: 06/19/2020 2:25 PM Patient location during procedure: OR Timeout Performed Pre-procedure: timeout performed Patient identity confirmed: arm band and patient Staffing Anesthesiologist: Ricardo Arvizu AOC AADC OPERATIONS STAFF OFFICER: Robyn Reddy) Celioivurszula Performed by: JENNI Indications and Patient Condition Preoxygenated: yes Patient position: sniffing Difficult Mask: No Indications for airway management: anesthesia anesthesia circuit Method: asleep Final Airway Details Final airway type: endotracheal airway Final Endotracheal Airway: ETT Cuffed: yes Successful intubation technique: direct laryngoscopy Endotracheal tube insertion site: oral Blade: Karol Blade size: #4 ETT size (mm): 7.0 Measured from: lips Measurement (cm): 20 Placeme (more content not included)... Note HNO ID: [id number] Author: Karuna He (Fel) Service: Colorectal Author Type: Fellow Type: Brief Op Note Filed: 06/19/2020 4:17 PM Note Text: BRIEF OPERATIVE NOTE - COLORECTAL SURGERY Log ID: [id number] Surgery/Procedure Date: 06/19/2020 Incision/Procedure Start Time: 2:46 PM Incision Close/Procedure End Time: 4:00 PM Surgeon(s) and Manager Balance(s): Surgeon(s) and Role: * Saman Huber - Primary * Kota Ren - Resident - Assisting * Merced He (Fel) - Fellow No Additional Staff Procedures and Anesthesia: Procedure(s) and Anesthesia Type: * EXCISION TUMOR PRESACRAL [9391] - General * COCCYGECTOMY - General Stoma Type: N/A Findings: Presacral tumor, resected with en bloc coccygectomy Estimated Blood Loss: 20mL Specimens: Presacral tumor Diagnosis Code(s): Pre-Op Diagnosis Codes: * Presacral mass [R19.09] Postop Diagnosis: Presacral tumor Drains: None Wound Classification: Class 1, operative wound clean, non-traumatic, with no inflammation encountered, no break in techniq (more content not included)... Chief Complaint and Reason for Visit Chief Complaint m43.16 Stenosis Chief Complaint Stenosis Stenosis Chief Complaint Stenosis Stenosis Stenosis Reason for Visit Lumbar stenosis with out neurogenic claudication Chief Complaint M43.16 spondylolisthesis Chief Complaint spondylolisthesis spondylolisthesis spondylolisthesis Reason for Visit Lumbar stenosis with out neurogenic claudication Chief Complaint spondylolisthesis spondylolisthesis spondylolisthesis m43.16 Reason for Visit Lumbar stenosis with out neurogenic claudication Chief Complaint m81.0 m43.16 Chief Complaint m81.0 m43.16 m81.0 m43.16 Chief Complaint m81.0 m43.16 m81.0 m43.16 S/P Hysterectomy Lumbar Stenosis Lumbar Stenosis Chief Complaint m81.0 m43.16 m81.0 m43.16 S/P Hysterectomy Lumbar Stenosis Lumbar Stenosis lumbar stenosis lumbar stenosis s/p l3-4 fusion L4-5 revision Reason for Visit GERD (gastroesophage al reflux disease) Impaired mobility and activities of daily living Left bundle branch block Lumbar stenosis without neurogenic claudication Neuropathy Osteoporosis Postoperative pain Impaired mobility and activities of daily living Left bundle branch block Lumbar stenosis without neurogenic claudication Neuropathy Postoperative pain Chief Complaint Lumbar Stenosis Lumbar Stenosis lumbar stenosis lumbar stenosis s/p l3-4 fusion L4-5 revision 2 Week Po Plif W/X-Ray [facility] Discharge 1 Mo Po W/X-Ray m43.16 2 MO F/U PLIF w/xray Reason for Visit GERD (gastroesophage al reflux disease) Impaired mobility and activities of daily living Left bundle branch block Lumbar stenosis without neurogenic claudication Neuropathy Osteoporosis Postoperative pain Impaired mobility and activities of daily living Left bundle branch block Lumbar stenosis without neurogenic claudication Neuropathy Postoperative pain Lumbar adjacent segment disease with spondylolisthesis Spondylolisthesis, lumbar region Status post lumbar spinal fusion Chief Complaint 2 Week Po Plif W/X-R ay [facility] Discharge 1 Mo Po W/X-Ray m43.16 2 MO F/U PLIF w/xray Amb Documentation M43.16 3 month PO PLIF w xray Reason for Visit Lumbar adjacent segm ent disease with spondylolisthesis Spondylolisthesis, lumbar region Status post lumbar spinal fusion Inflammation of right sacroiliac joint Lumbar adjacent segment disease with spondylolisthesis Spondylolisthesis, lumbar region Status post lumbar spinal fusion Chief Complaint 1 Mo Po W/X-Ray m43.16 2 MO F/U PLIF w/xray Amb Documentation M43.16 3 month PO PLIF w xray Amb Documentation EST PT CONSULT DR SANTI COSTA Reason for Visit Lumbar adjacent segm ent disease with spondylolisthesis Spondylolisthesis, lumbar region Status post lumbar spinal fusion Inflammation of right sacroiliac joint Lumbar adjacent segment disease with spondylolisthesis Spondylolisthesis, lumbar region Status post lumbar spinal fusion Chronic pain Other low back pain Sacroiliitis, not elsewhere classified Chief Complaint 2 MO F/U PLIF w/xray Amb Documentation M43.16 3 month PO PLIF w xray Amb Documentation EST PT CONSULT DR SANTI COSTA LUMBAR PAIN LUMBAR PAIN Reason for Visit Lumbar adjacent segm ent disease with spondylolisthesis Spondylolisthesis, lumbar region Status post lumbar spinal fusion Inflammation of right sacroiliac joint Lumbar adjacent segment disease with spondylolisthesis Spondylolisthesis, lumbar region Status post lumbar spinal fusion Chronic pain Other low back pain Sacroiliitis, not elsewhere classified Chief Complaint Amb Documentation M43.16 3 month PO PLIF w xray Amb Documentation EST PT CONSULT DR SANTI COSTA LUMBAR PAIN LUMBAR PAIN leg cramps F/U AFTER RT SI JOINT INJ Reason for Visit Inflammation of righ t sacroiliac joint Lumbar adjacent segment disease with spondylolisthesis Spondylolisthesis, lumbar region Status post lumbar spinal fusion Chronic pain Other low back pain Sacroiliitis, not elsewhere classified Chemotherapy-induced peripheral neuropathy Chronic venous insufficiency of lower extremity Lumbar spondylosis Nocturnal leg cramps Chronic pain Other low back pain Sacroiliitis, not elsewhere classified Chief Complaint Amb Documentation EST PT CONSULT DR SANTI COSTA LUMBAR PAIN LUMBAR PAIN leg cramps F/U AFTER RT SI JOINT INJ m51.36 m43.16 6 month po PLIF w/xray Reason for Visit Chronic pain Other low back pain Sacroiliitis, not elsewhere classified Chemotherapy-induced peripheral neuropathy Chronic venous insufficiency of lower extremity Lumbar spondylosis Nocturnal leg cramps Chronic pain Other low back pain Sacroiliitis, not elsewhere classified Lumbar spondylosis Status post lumbar spinal fusion Chief Complaint EST PT CONSULT DR SJ A[place] RECHECK LUMBAR PAIN LUMBAR PAIN leg cramps F/U AFTER RT SI JOINT INJ m51.36 m43.16 6 month po PLIF w/xray sinus infection - 2 weeks Reason for Visit Chronic pain Other low back pain Sacroiliitis, not elsewhere classified Chemotherapy-induced peripheral neuropathy Chronic venous insufficiency of lower extremity Lumbar spondylosis Nocturnal leg cramps Chronic pain Other low back pain Sacroiliitis, not elsewhere classified Lumbar spondylosis Status post lumbar spinal fusion Sinusitis Chief Complaint LUMBAR PAIN LUMBAR PAIN leg cramps F/U AFTER RT SI JOINT INJ m51.36 m43.16 6 month po PLIF w/xray sinus infection - 2 weeks RECHECK Reason for Visit Chemotherapy-induced peripheral neuropathy Chronic venous insufficiency of lower extremity Lumbar spondylosis Nocturnal leg cramps Chronic pain Other low back pain Sacroiliitis, not elsewhere classified Lumbar spondylosis Status post lumbar spinal fusion Sinusitis Chronic pain Other low back pain Sacroiliitis, not elsewhere classified Chief Complaint leg cramps F/U AFTER RT SI JOINT INJ m51.36 m43.16 6 month po PLIF w/xray sinus infection - 2 weeks RECHECK lt foot issues Reason for Visit Chemotherapy-induced peripheral neuropathy Chronic venous insufficiency of lower extremity Lumbar spondylosis Nocturnal leg cramps Chronic pain Other low back pain Sacroiliitis, not elsewhere classified Lumbar spondylosis Status post lumbar spinal fusion Sinusitis Chronic pain Other low back pain Sacroiliitis, not elsewhere classified Degenerative arthritis of left foot Left foot pain Chief Complaint F/U AFTER RT SI JOIN T INJ m51.36 m43.16 6 month po PLIF w/xray sinus infection - 2 weeks RECHECK lt foot issues Back Pain Back Pain Reason for Visit Chronic pain Other low back pain Sacroiliitis, not elsewhere classified Lumbar spondylosis Status post lumbar spinal fusion Sinusitis Chronic pain Other low back pain Sacroiliitis, not elsewhere classified Degenerative arthritis of left foot Left foot pain Chief Complaint m51.36 m43.16 6 month po PLIF w/xray sinus infection - 2 weeks RECHECK lt foot issues Back Pain Back Pain F/U AFTER RT SACROILIAC JOINT INJ Reason for Visit Lumbar spondylosis Status post lumbar spinal fusion Sinusitis Chronic pain Other low back pain Sacroiliitis, not elsewhere classified Degenerative arthritis of left foot Left foot pain Chronic pain Other low back pain Sacroiliitis, not elsewhere classified Chief Complaint RECHECK lt foot issues Back Pain Back Pain F/U AFTER RT SACROILIAC JOINT INJ M47.816 M51.36 M43.16 f/u plif w/xray Reason for Visit Chronic pain Other low back pain Sacroiliitis, not elsewhere classified Degenerative arthritis of left foot Left foot pain Chronic pain Other low back pain Sacroiliitis, not elsewhere classified History of lumbar fusion Pain of right sacroiliac joint Chief Complaint lt foot issues Back Pain Back Pain F/U AFTER RT SACROILIAC JOINT INJ M47.816 M51.36 M43.16 f/u plif w/xray vision, balance, and tapping in ears Reason for Visit Degenerative arthrit is of left foot Left foot pain Chronic pain Other low back pain Sacroiliitis, not elsewhere classified History of lumbar fusion Pain of right sacroiliac joint Chemotherapy-induced peripheral neuropathy Chronic venous insufficiency of lower extremity Lumbar spondylosis Nocturnal leg cramps Chief Complaint lt foot issues Back Pain Back Pain F/U AFTER RT SACROILIAC JOINT INJ M47.816 M51.36 M43.16 f/u plif w/xray vision, balance, and tapping in ears CC Adult Risk Stratification Reason for Visit Degenerative arthrit is of left foot Left foot pain Chronic pain Other low back pain Sacroiliitis, not elsewhere classified History of lumbar fusion Pain of right sacroiliac joint Allergic rhinitis Chemotherapy-induced peripheral neuropathy Nasal polyp, posterior Tinnitus of both ears Reason for Referral Specialty Diagnoses / Procedures Referred By Contac t Referred To Contact Cardiology Diagnoses Mitral valve insufficiency, unspecified etiology Procedures Transthoracic Echo Complete MA ECHO TTHRC R-T 2D W/WOM-MODE COMPL SPEC&COLR D Bryce Hendrickson MD [address] [address] Referral ID Status Reason Start Date Expiration Date Visits Requested Visits Authorized [id number] Pending Review Perform Procedure 07/15/2023 07/14/2024 1 1 Specialty Diagnoses / Procedures Referred By Carlos thompson Referred To Contact Cardiology Diagnoses Mitral valve insufficiency, unspecified etiology Procedures Follow Up In Cardiology Bryce Hendrickson MD [address] [facility] [address] [place] [address] Bryce Hendrickson MD [address] [facility] [address] [place] [address] Referral ID Status Reason Start Date Expiration Date V isits Requested Visits Authorized [id number] Authorized 07/15/2023 07/14/2024 1 1 Reason evaluate and treat Diagnosis 1 Lumbar stenosis with neurogenic claudication (M48.062) [facility]erral [facility] Referring Provider First Name Vivi Referring Provider Last Name Kalyan Referring Provider Specialty Nurse Pracdonna itioner Referred Organization [facility] Referred Address [address] [place], [place],[address] Referred Provider Specialty Physical The rapist Referral Priority Routine Reason *Waiting for appt Evaluate and Treat Intra-articular Diagnostic Therapeutic L Hip Injection Diagnosis 1 Arthropathy of left hip (M16.12) Referral Organization [facility] Referring Provider First Name Devin Referring Provider Last Name Santi Referring Provider Specialty Neurologica l Surgery Referred Organization [facility] Pain Managemen t [facility] [place] Referred Provider Artie Blackburn Referred Address [address] [facility] [place] [place],[address] Referred Provider Specialty Pain Medicin e Referral Priority Routine [facility] 08:24:55 AM >Received today and sent P2P Reason *FU 01/09 Evaluate and Treat Left Hip Pain Diagnosis 1 Arthropathy of left hip (M16.12) Referral Organization [facility] Referring Provider First Name Devin Referring Provider Last Name Santi Referring Provider Specialty Neurologica l Surgery Referred Organization [facility] Referred Provider Eran Hankins Referred Address ,[place], [place],[address] Referred Provider Specialty Orthopedic S urgery Referral Priority Routine General Notes [facility], Valeri 022 12:36:21 PM >Received and sent referral P2P Chief Complaint * overdue. * Patient is in the office for follow-up for the problems noted below. She has not seen me in 2 years. She reports no symptoms of dyspnea palpitations or chest pain. She is having lower back problem for which she is following with neurosurgery and probably is going to have major operation coming up soon and she will be cleared for that surgery without reservation from a cardiac standpoint. Her mitral valve has been assessed by echocardiograms in the last echocardiogram January 2021 showed moderate regurgitation but normalization of the ejection fraction up to 60% while she has chronic left bundle branch block. She had a fall few months ago without any injuries. Education was provided to protect her from falls. Her weight is down more than 10 pounds since her last visit. Her examination today was normal. * ASSESSMENT AND PLAN: * 1. Hypertension, currently under control. On Coreg only which has been well-tolerated * 2. Borderline obesity, encouraged cutting back calorie intake. She has lost 10 pounds since her last visit * 3. Chronic left bundle branch block, not consequential, last EKG in August 2021 * 4. Moderate mitral regurgitation to be followed noninvasively. Echocardiogram will be scheduled before next visit a year from now. Last echocardiogram January 2021. Ejection fraction 55-60% * Bryce Hendrickson MD, FACC * RENUKA OWEN is being seen for follow-up of a hospitalization for chest pain and SOB. * Patient is in the office for follow-up for the problems noted below but recently was at [facility] for chest pain and had ruled out for myocardial infarction was advised to have further cardiac work-up was discharged. She is known to have hypertension and left bundle branch block, she is nondiabetic and non-smoker. Since discharge she has been stable with no recurrent symptoms. Examinationtoday was only remarkable for overweight. Based on the patient's presentation and the recent event the patient would benefit from a nuclear stress test to assess for myocardial ischemia. Patient is agreeable to proceed and will be scheduled. Cardiac and pulmonary examinations were normal today. Shedoes have mitral regurgitation which has been following by echocardiograms. * ASSESSMENT AND PLAN: * 1. Hypertension, currently under control. On Coreg only which has been well-tolerated * 2. Overweight, encouraged cutting back calorie intake. She has lost 10 pounds since her last visit * 3. Chronic left bundle branch block, inconsequential, last EKG in August 2021 * 4. Moderate mitral regurgitation to be followed noninvasively it remains asymptomatic. Echocardiogram will be scheduled before next visit. Last echocardiogram January 2021. Ejection fraction 55-60% * 5. Recent event of chest pain requiring an ER visit to [facility]. Assessment was negative in the ER. Nuclear stress test is recommended and will be scheduled * Bryce Hendrickson MD, FACC * overdue. * Patient is in the office for follow-up for the problems noted below. She has not seen me in 2 years. She reports no symptoms of dyspnea palpitations or chest pain. She is having lower back problem for which she is following with neurosurgery and probably is going to have major operation coming up soon and she will be cleared for that surgery without reservation from a cardiac standpoint. Her mitral valve has been assessed by echocardiograms in the last echocardiogram January 2021 showed moderate regurgitation but normalization of the ejection fraction up to 60% while she has chronic left bundle branch block. She had a fall few months ago without any injuries. Education was provided to protect her from falls. Her weight is down more than 10 pounds since her last visit. Her examination today was normal. * ASSESSMENT AND PLAN: * 1. Hypertension, currently under control. On Coreg only which has been well-tolerated * 2. Borderline obesity, encouraged cutting back calorie intake. She has lost 10 pounds since her last visit * 3. Chronic left bundle branch block, not consequential, last EKG in August 2021 * 4. Moderate mitral regurgitation to be followed noninvasively. Echocardiogram will be scheduled before next visit a year from now. Last echocardiogram January 2021. Ejection fraction 55-60% * Bryce Hendrickson MD, FACC Additional Source Comments INFORMATION SOURCE (unrecogn ized section and content) DATE CREATED AUTHOR 12/22/2017 [facility] DATE CREATED AUTHOR AUTHOR'S ORGANIZ ATION 04/24/2020 [facility] DATE CREATED AUTHOR AUTHOR'S ORGANIZ ATION 06/27/2020 [facility] DATE CREATED AUTHOR AUTHOR'S ORGANIZ ATION 05/12/2022 [facility] DATE CREATED AUTHOR AUTHOR'S ORGANIZ ATION 05/14/2022 [facility] DATE CREATED AUTHOR AUTHOR'S ORGANIZ ATION 09/04/2022 [facility] DATE CREATED AUTHOR AUTHOR'S ORGANIZ ATION 02/01/2023 [facility] DATE CREATED AUTHOR AUTHOR'S ORGANIZ ATION 05/02/2023 [facility] DATE CREATED AUTHOR AUTHOR'S ORGANIZ ATION 01/08/2024 [facility] DATE CREATED AUTHOR AUTHOR'S ORGANIZ ATION 02/19/2024 [facility] DATE CREATED AUTHOR AUTHOR'S ORGANIZ ATION 02/21/2024 [facility] DATE CREATED AUTHOR AUTHOR'S ORGANIZ ATION 03/29/2024 [facility] DATE CREATED AUTHOR AUTHOR'S ORGANIZ ATION 03/31/2024 [facility] EPIC Care Teams (unrecognized sec tion and content) Team Status: Active Member Role Status Dates Mervin Jacob DO Primary Care Provider Active Team Status: Inactive Member Role Status Dates Mervin Jacob DO Primary Care Provider Active Start: August 11, 2023 End: August 11, 2023 Artie Blackburn MD Attending Provider Active Sta rt: August 11, 2023 End: August 11, 2023 Team Status: Inactive Member Role Status Dates Mervin Jacob DO Primary Care Provider Active Start: September 07, 2023 End: September 07, 2023 Artie Blackburn MD Attending Provider Active Sta rt: September 07, 2023 End: September 07, 2023 Team Status: Active Member Role Status Dates Mervin Jacob DO Primary Care Provider Active Start: September 07, 2023 Artie Blackburn MD Attending Provider, Other Provider Active Start: September 07, 2023 Team Status: Inactive Member Role Status Dates Mervin Jacob DO Primary Care Provide r, Attending Provider Active Start: September 14, 2023 End: September 14, 2023 Team Status: Active Member Role Status Dates Mervin Jacob DO Primary Care Provide r, Attending Provider Active Start: September 17, 2023 Team Status: Inactive Member Role Status Dates Mervin Jacob DO Primary Care Provider Active Start: September 22, 2023 End: September 22, 2023 Artie Blackburn MD Attending Provider Active Sta rt: September 22, 2023 End: September 22, 2023 Team Status: Inactive Member Role Status Dates Mervin Jacob DO Primary Care Provider Active Start: October 19, 2023 End: October 19, 2023 Devin Moreau MD Attending Provider Active Star t: October 19, 2023 End: October 19, 2023 Team Status: Inactive Member Role Status Dates Mervin Jacob DO Primary Care Provider Active Start: November 01, 2023 End: November 01, 2023 Ana Maria Landeros APRN [employer]GER-C Attending Provider Act segundo Start: November 01, 2023 End: November 01, 2023 Team Status: Active Member Role Status Dates NON STAFF Primary Care Provider Active Start: June 29, 2023 JOLYNN Quintero Attending Provider Active Start : June 29, 2023 Team Status: Inactive Member Role Status Dates Mervin Jacob DO Primary Care Provider Active Start: July 20, 2023 End: July 20, 2023 Devin Moreau MD Attending Provider Active Star t: July 20, 2023 End: July 20, 2023 Team Status: Inactive Member Role Status Dates Devin Moreau MD Attending Provider Active Star t: July 20, 2023 End: July 20, 2023 Mervin Jacob DO Primary Care Provider Active Start: July 20, 2023 End: July 20, 2023 Team Status: Active Member Role Status Dates Mervin Jacob DO Primary Care Provider Active Start: July 28, 2023 JOLYNN Quintero Attending Provider Active Start : July 28, 2023 Team Status: Inactive Member Role Status Dates Mervin Jacob DO Primary Care Provider Active Devin Moreau MD Attending Provider Active Tree Marker Relationship Specialty Start Date End Date Mervin Jacob DO [address] [place] [id number] PCP - General Internal Medicine 06/04/20 Tree Marker Relationship Specialty Start Date End Date Mervin Jacob DO [address] [place] [address] PCP - General Internal Medicine 06/04/20 Tree Marker Relationship Specialty Start Date End Date Mervin Jacob DO [address] [place] [address] PCP - General 02/22/19 Team Status: Inactive Member Role Status Dates Radha Moreau MD Attending Provider Active Team Status: Inactive Member Role Status Dates Devin Moreau MD Attending Provider Active Team Status: Active Member Role Status Dates NON STAFF Primary Care Provider Active Team Status: Inactive Member Role Status Dates Devin Moreau MD Attending Provider Active NON STAFF Primary Care Provider Active Jared Louis MD Other Provider Active Team Status: Inactive Member Role Status Dates NON STAFF Primary Care Provider Active Saman Marino MD Admit Provider, Attending Provider A ctive Team Status: Inactive Member Role Status Dates Devin Moreau MD Attending Provider Active Star t: March 26, 2023 End: March 26, 2023 Team Status: Inactive Member Role Status Dates Mervin Jacob DO Primary Care Provider Active Start: April 09, 2023 End: April 09, 2023 Devin Moreau MD Attending Provider Active Star t: April 09, 2023 End: April 09, 2023 Team Status: Inactive Member Role Status Dates Devin Moreau MD Attending Provider Active Star t: April 13, 2023 End: April 15, 2023 NON STAFF Primary Care Provider Active Start: April 13, 2023 End: April 15, 2023 Jared Louis MD Other Provider Active Start: April 13, 2023 End: April 15, 2023 Team Status: Inactive Member Role Status Dates NON STAFF Primary Care Provider Active Start: April 15, 2023 End: April 20, 2023 Saman Marino MD Admit Provider, Atte nding Provider Active Start: April 15, 2023 End: April 20, 2023 Team Status: Inactive Member Role Status Dates Devin Moreau MD Attending Provider Active Star t: April 27, 2023 End: April 27, 2023 Team Status: Inactive Member Role Status Dates Mervin Jacob DO Attending Provider Active Sta rt: April 29, 2023 End: April 29, 2023 Team Status: Active Member Role Status Dates Provider Conversion Attending Provider Active St art: May 07, 2023 Team Status: Inactive Member Role Status Dates JERRICA Moreno Attending Provider Active Start: May 26, 2023 End: May 26, 2023 Team Status: Inactive Member Role Status Dates NON STAFF Primary Care Provider Active Start: May 26, 2023 End: May 26, 2023 JERRICA Moreno Attending Provider Active Start: May 26, 2023 End: May 26, 2023 Team Status: Inactive Member Role Status Dates NON STAFF Primary Care Provider Active Start: June 21, 2023 End: June 21, 2023 JERRICA Moreno Attending Provider Active Start: June 21, 2023 End: June 21, 2023 Tree Marker Relationship Specialty Start Date End Date Mervin Jacob DO PCP - General Internal Medicine 06/04/20 Tree Marker Relationship Specialty Start Date End Date Mervin Jacob DO PCP - General 02/22/19 Team Status: Active Member Role Status Dates NON STAFF Primary Care Provider Active Start: June 22, 2023 Mervin Jacob DO Attending Provider Active Sta rt: June 22, 2023 Team Status: Active Member Role Status Dates Mervin Jacob DO Primary Care Provider Active Start: July 20, 2023 Devin Moreau MD Attending Provider Active Star t: July 20, 2023 Team Status: Active Member Role Status Dates Mervin Jacob DO Primary Care Provider Active Start: October 19, 2023 Devin Moreau MD Attending Provider Active Star t: October 19, 2023 Team Status: Inactive Member Role Status Dates Mervin Jacob DO Primary Care Provider Active Start: November 24, 2023 End: November 24, 2023 Artie Blackburn MD Attending Provider Active Sta rt: November 24, 2023 End: November 24, 2023 Team Status: Inactive Member Role Status Dates Mervin Jacob DO Primary Care Provide r, Attending Provider Active Start: December 13, 2023 End: December 13, 2023 Team Status: Inactive Member Role Status Dates Mervin Jacob DO Primary Care Provider Active Start: December 21, 2023 End: December 21, 2023 Artie Blackburn MD Attending Provider Active Sta rt: December 21, 2023 End: December 21, 2023 Team Status: Active Member Role Status Dates Mervin Jacob DO Primary Care Provider Active Start: December 21, 2023 Artie Blackburn MD Attending Provider, Other Provider Active Start: December 21, 2023 Team Status: Inactive Member Role Status Dates Mervin Jacob DO Primary Care Provider Active Start: January 05, 2024 End: January 05, 2024 Artie Blackburn MD Attending Provider Active Sta rt: January 05, 2024 End: January 05, 2024 Tree Marker Relationship Specialty Start Date End Date Mervin Jacob DO PCP - General Internal Medicine 06/04/20 Team Status: Active Member Role Status Dates Mervin Jacob DO Primary Care Provider Active Start: February 08, 2024 Devin Moreau MD Attending Provider Active Star t: February 08, 2024 Team Status: Inactive Member Role Status Dates Mervin Jacob DO Primary Care Provider Active Start: February 08, 2024 End: February 08, 2024 Devin Moreau MD Attending Provider Active Star t: February 08, 2024 End: February 08, 2024 Team Status: Inactive Member Role Status Dates Mervin Jacob DO Primary Care Provide r, Attending Provider Active Start: March 01, 2024 End: March 01, 2024 Team Status: Active Member Role Status Dates Mervin Jacob DO Primary Care Provide r, Attending Provider Active Start: March 01, 2024 Tree Marker Relationship Specialty Start Date End Date Mervin Jacob MD [address] [place] [id number] PCP - General Internal Medicine 09/30/22 Tree Marker Relationship Specialty Start Date End Date eMrvin Jacob MD [address] [place] [id number] PCP - General Internal Medicine 09/30/22 Tree Marker Relationship Specialty Start Date End Date Mervin Jacob MD [address] [place] [address] PCP - General Internal Medicine 09/30/22 Goals (unrecognized section and content) Goals may be documented in a n alternate sectionGoals may be documented in an alternate sectionNo InformationNo InformationNo InformationNo InformationNo InformationNo InformationNo InformationGoals may be documented in an alternate sectionNo InformationNo InformationNo InformationNo InformationNo InformationNo InformationNo InformationNo InformationNo InformationNo InformationNo InformationNo InformationNo InformationGoals may be documented in an alternate sectionNo InformationNo InformationNo InformationGoals may be documented in an alternate sectionNo InformationNo InformationNo InformationNo InformationNo InformationNo InformationNo InformationNo InformationNo InformationGoals may be documented in an alternate sectionNo InformationNo InformationNo InformationNo InformationNo InformationNo InformationNo InformationNo InformationNo InformationGoals may be documented in an alternate sectionGoals may be documented in an alternate sectionGoals may be documented in an alternate sectionGoals may be documented in an alternate section REASON FOR VISIT (unrecogniz ed section and content) Reason Onset Date Comments Refill Request 05/06/2022 Reason Comments Breast Cancer Follow up Reason Comments Follow-up 1 year Reason Comments Pre-op Clearance 6 weeks Specialty Diagnoses / Procedures Referred By Contmacario t Referred To Contact Cardiology Diagnoses Mitral valve insufficiency, unspecified etiology Essential hypertension Procedures Follow Up In Cardiology Bryce Hendrickson MD [address] [place] [address] 2, [place] [id number] Bryce Hendrickson MD [address] [place] [address] 2, [place] [id number] Referral ID Status Reason Start Date Expiration Date V isits Requested Visits Authorized [id number] Authorized 03/02/2023 03/01/2024 1 1 Reason Comments Breast Cancer Reason Comments Follow-up 4 months Specialty Diagnoses / Procedures Referred By Contmacario t Referred To Contact Cardiology Diagnoses Mitral valve insufficiency, unspecified etiology Procedures Follow Up In Cardiology Bryce Hendrickson MD [address] [place] [address] [address], [address] [address] Bryce Hendrickson MD [address] [place] [address] [address], [address] [address] Referral ID Status Reason Start Date Expiration Date V isits Requested Visits Authorized [id number] Authorized 03/18/2023 03/17/2024 1 1 Reason Comments Radiology Mammogram Reason Comments Allergic Rhinitis Nasal polyp. Tinnitus Specialty Diagnoses / Procedures Referred By Contac t Referred To Contact Otolaryngology Diagnoses Allergic rhinitis, unspecified Polyp of nasal cavity Tinnitus, bilateral Procedures MA UNLISTED EVALUATION AND MANAGEMENT Mervin Jacob MD [address] [place] [address] Phone: tel: Chuck Cope MD [address] [facility] [address] [place] [address] Phone: tel: fax: Referral ID Status Reason Start Date Expiration Date Visits Re quested Visits Authorized [id number] Closed 03/02/2024 08/29/2024 1 1 Reason Comments Recurrent Sinusitis Follow up XR sinuses [facility] 03/23/24 Source Comments (unrecognize d section and content) In the event this informatio n is protected by the Federal Confidentiality of Alcohol and Drug Abuse Patient Records regulations: The Federal rules restrict any use of the information to criminally investigate or prosecute any alcohol or drug abuse patient.[facility] the event this information is protected by the Federal Confidentiality of Alcohol and Drug Abuse Patient Records regulations: The Federal rules restrict any use of the information to criminally investigate or prosecute any alcohol or drug abuse patient.[facility] CenterIn the event this information is protected by the Federal Confidentiality of Alcohol and Drug Abuse Patient Records regulations: The Federal rules restrict any use of the information to criminally investigate or prosecute any alcohol or drug abuse patient.[facility] CenterIn the event this information is protected by the Federal Confidentiality of Alcohol and Drug Abuse Patient Records regulations: The Federal rules restrict any use of the information to criminally investigate or prosecute any alcohol or drug abuse patient.[facility] FOR RECORDS PERTAINING TO PATIENTS WHO ARE OR HAVE BEEN ENROLLED IN A CHEMICAL DEPENDENCY/SUBSTANCEABUSE PROGRAM, SOME INFORMATION MAY BE OMITTED. This clinical summary was aggregated from multiple sources. Caution should be exercised in using it in the provision of clinical care. This summary normalizes information from multiple sources, and as a consequence, information in this document may materially change the coding, format and clinical context of patient data. In addition, data may be omitted in some cases. CLINICAL DECISIONS SHOULD BE BASED ON THE PRIMARY CLINICAL RECORDS. [facility]. provides no warranty or guarantee of the accuracy or completeness of information in this document.
[2024-03-31 10:37] LABS: BUN Creatinine Ratio 27.6; Calcium 9.8 mg/dL (8.5-10.1); Carbon Dioxide 31.8 mmol/L (21.0-32.0); Chloride 100 mmol/L (98-107); Estimated GFR (African America 35 (>=60 mL/min/1.73m^2); Estimated GFR (Non-African Ame 29 (>=60 mL/min/1.73m^2); Glucose 96 mg/dL (74-106); Potassium 3.8 mmol/L (3.5-5.1); Sodium 141 mmol/L (136-145)
== END 2024-03-31 09:12 | disposition home or self-care (01) ==
LOC: LAB 09:11
PROVIDERS: PCP Internal Medicine; Visit Provider Internal Medicine Cardiovascular Disease
DX: R60.9 Edema, unspecified (principal)
CPT/HCPCS: 36415; 80048

== ENCOUNTER 2024-04-17 10:08 | Outpatient (OUT) | payer MEDICARE, SELFPAY ==
[2024-04-17 11:06] LABS: Basophils Absolute Auto 0.1 10^3/uL (0.0-0.1); Basophils Percent Auto 0.8 % (0.2-2.0); Eosinophils Absolute Auto 0.2 10^3/uL (0.0-0.7); Hematocrit 31.3 % (36.0-48.0); Immature Granulocytes Abs Auto 0.03 10^3/uL (0.00-0.03); Immature Granulocytes Pct Auto 0.5 % (0.0-0.5); Lymphocytes Absolute Auto 1.6 10^3/uL (1.2-3.8); Lymphocytes Percent Auto 25.5 % (20.5-60.0); Mean Corpuscular HGB Conc 31.9 g/dL (29.9-35.2); Mean Corpuscular Hemoglobin 28.4 pg (26.7-34.0); Mean Corpuscular Volume 88.9 fL (81.0-99.0); Mean Platelet Volume 9.4 fL (9.5-13.5); Monocytes Absolute Auto 0.7 10^3/uL (0.3-0.8); Monocytes Percent Auto 11.4 % (1.7-12.0); Neutrophils Absolute Auto 3.7 10^3/uL (1.4-6.5); Neutrophils Percent Auto 58.8 % (43.0-75.0); Platelet Count 326 10^3/uL (150-450); Red Blood Count 3.52 10^6/uL (4.20-5.40); Red Cell Distribution Width 16.1 % (11.0-15.0); White Blood Count 6.3 10^3/uL (4.0-11.0)
[2024-04-17 11:11] LABS: Percent Iron Saturation 29.8 %
[2024-04-18 04:07] LABS: Vitamin B12 376 pg/mL (232-1245)
== END 2024-04-17 10:09 | disposition home or self-care (01) ==
LOC: LAB 10:10
PROVIDERS: PCP Internal Medicine; Visit Provider Internal Medicine
DX: N17.9 Acute kidney failure, unspecified (principal); D64.9 Anemia, unspecified
CPT/HCPCS: 36415; 80048; 82607; 82728; 82746; 83540; 83550; 85025

== ENCOUNTER 2024-04-17 10:14 | Outpatient (OUT) | payer MEDICARE, SELFPAY ==
[2024-04-17 11:03] LABS: Anion Gap 11.3; BUN Creatinine Ratio 15.7; Calcium 8.9 mg/dL (8.5-10.1); Carbon Dioxide 31.2 mmol/L (21.0-32.0); Chloride 106 mmol/L (98-107); Estimated GFR (African America 50 (>=60 mL/min/1.73m^2); Estimated GFR (Non-African Ame 41 (>=60 mL/min/1.73m^2); Glucose 90 mg/dL (74-106); Potassium 4.5 mmol/L (3.5-5.1); Sodium 144 mmol/L (136-145)
== END 2024-04-17 10:15 | disposition home or self-care (01) ==
LOC: LAB 10:16
PROVIDERS: PCP Internal Medicine
DX: N17.9 Acute kidney failure, unspecified (principal)
CPT/HCPCS: 36415; 80048

== ENCOUNTER 2024-09-05 10:05 | Outpatient (OUT) | payer MEDICARE, SELFPAY ==
--- NOTE | 2024-09-05 10:42 | XR_ITS ---
The [address] [address] Patient Name: JHON ENGLE MRN: [id number] date: 1950 Sex: F Assigned Patient Location: LAB Current Patient Location: LAB Accession/Order Number: [id number] Exam Date: 09/05/2024 11:32 Report Date: 09/05/2024 11:35 At the request of: SYLVESTER JACOB DO Procedure: XR chest 2V Chest 2 views CLINICAL HISTORY: Dyspnea COMPARISON: None FINDINGS: Heart is normal in size. Lungs are clear. No free air. XR/XR chest 2V IMPRESSION: NO ACUTE CARDIOPULMONARY ABNORMALITY. Impression dictated by: Saman Vo Jr., D.O. 09/05/2024 11:35 AM Dictation Location: [facility]ITAL[facility] Electronically authenticated by: [id number] Date: 09/05/2024 11:35
[2024-09-05 11:02] LABS: Basophils Absolute Auto 0.1 10^3/uL (0.0-0.1); Eosinophils Absolute Auto 0.3 10^3/uL (0.0-0.7); Eosinophils Percent Auto 4.6 % (0.9-7.0); Hematocrit 33.6 % (36.0-48.0); Immature Granulocytes Abs Auto 0.01 10^3/uL (0.00-0.03); Immature Granulocytes Pct Auto 0.2 % (0.0-0.5); Lymphocytes Absolute Auto 1.5 10^3/uL (1.2-3.8); Lymphocytes Percent Auto 24.5 % (20.5-60.0); Mean Corpuscular HGB Conc 32.7 g/dL (29.9-35.2); Mean Corpuscular Hemoglobin 27.2 pg (26.7-34.0); Mean Corpuscular Volume 83.2 fL (81.0-99.0); Mean Platelet Volume 10.2 fL (9.5-13.5); Monocytes Absolute Auto 0.7 10^3/uL (0.3-0.8); Monocytes Percent Auto 11.7 % (1.7-12.0); Neutrophils Absolute Auto 3.5 10^3/uL (1.4-6.5); Platelet Count 333 10^3/uL (150-450); Red Blood Count 4.04 10^6/uL (4.20-5.40); Red Cell Distribution Width 15.6 % (11.0-15.0); White Blood Count 6.1 10^3/uL (4.0-11.0)
[2024-09-05 11:33] LABS: Alanine Aminotransferase 20 U/L (14-59); Albumin Globulin Ratio 1.1; Albumin Level 3.7 g/dL (3.4-5.0); Alkaline Phosphatase 82 U/L (46-116); Anion Gap 13.5; Aspartate Amino Transferase 21 U/L (15-37); BUN Creatinine Ratio 27.8; Bilirubin Total 0.4 mg/dL (0.2-1.0); Calcium 9.5 mg/dL (8.5-10.1); Chloride 101 mmol/L (98-107); Estimated GFR (African America 39 (>=60 mL/min/1.73m^2); Estimated GFR (Non-African Ame 32 (>=60 mL/min/1.73m^2); Globulin 3.5 g/dL; Glucose 89 mg/dL (74-106); Potassium 4.5 mmol/L (3.5-5.1); Sodium 139 mmol/L (136-145); Thyroid Stimulating Hormone 3.165 uIU/mL (0.358-3.740); Total Protein 7.2 g/dL (6.4-8.2)
[2024-09-06 03:07] LABS: Vitamin B12 491 pg/mL (232-1245)
== END 2024-09-05 10:06 | disposition home or self-care (01) ==
LOC: LAB 10:07
PROVIDERS: PCP Internal Medicine; Visit Provider Internal Medicine
DX: D64.9 Anemia, unspecified (principal); N18.32 Chronic kidney disease, stage 3b; R53.83 Other fatigue; R06.00 Dyspnea, unspecified; I12.9 Hypertensive chronic kidney disease with stage 1 through stage 4 chronic kidney disease, or unspecified chronic kidney disease
CPT/HCPCS: 36415; 71046; 80053; 82607; 82728; 82746; 84443; 85025

== ENCOUNTER 2024-10-13 09:35 | Outpatient (OUT) | payer MEDICARE, SELFPAY ==
--- OUTSIDE RECORDS SUMMARY | 2024-01-04 06:15 | XMS_ITS ---
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) Referral Organization [facility] (PODIATRY) Referring Provider First Name Bradford Referring Provider Last Name Analilia Referring Provider Speciality Podiatry Referred Provider Specialty Pharmacist Referral Priority Routine REASON FOR VISIT Pain and neuropathy in feet Medications Medication SIG (Take, Route, Frequency, Duration) Notes Start Date End Date Status Gabapentin 300 MG 1 capsule Orally Once a day Active traMADol HCl 50 MG 1 tablet as needed O rally Once a day Active Carvedilol 6.25 MG 1 tablet with food O rally Twice a day Active Enalapril Maleate 2.5 MG 1 tablet Orally Once a day Active Omeprazole 40 MG 1 capsule 30 minutes before morning meal Orally Once a day Active Aspirin 81 81 MG 1 tablet Orally Once a day Active Baclofen 20 MG 1 tablet Administer without regards to meals as needed Orally Twice a day Active traZODone HCl 50 MG 1 tablet at bedtime as needed Orally Once a day Active Social History Tobacco Use: Social History Observation Description Date Details (start date - stop date) Never Smoker NA - NA Tobacco Control (Standard) Question Answer Notes Tobacco use: Nonsmoker Problems Problem Type SNOMED Code ICD Code Onset Dates Problem Status W/U Status Risk Notes Problem [id number] Primary osteoarthritis, left ankle and foot (M19.072) Active confirmed Problem 7528848 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) Active confirmed Vital Signs Temperature 97.8 degrees Fahrenheit 01/04/20 24 Heart Rate 82 /min 01/04/2024 Height 61.5 in 01/04/2024 Weight 149 lbs 01/04/2024 BMI 27.69 kg/m2 01/04/2024 Oximetry 99 % 01/04/2024 Encounters Encounter Location Date Provider Diagnosis [facility] (PODIATRY) [address] [place] [address] [place] [address] 01/04/2024 Bradford [facility] Drug-induced polyneuropathy G62.0 and Primary osteoarthritis, left ankle and foot M19.072 Assessments Encounter Date Diagnosis (ICD Code) Assessment Notes Treatment Notes Treatment Clinical Notes Section Notes 01/04/2024 Drug-induced polyneuropathy (ICD-10 - G62.0) Patient has a complicated medical history requiring multiple back surgeries and chemotherapy for cancer. Her last back surgery in 2011 did significantly alleviate her pain but her neuropathy did not improve. It is likely her neuropathy is secondary to chemotherapy. She is currently on gabapentin 600 mg 3 times daily. I wrote down Lyrica and Cymbalta to discuss with her primary care physician Dr. Chanel. I also provided a prescription for topical compound directed at neuropathy. I discussed alternative lacing to her shoes and shoe modification. Follow-up in 3 months or as needed 01/04/2024 Primary osteoarthritis, left ankle and foot (ICD-10 - M19.072) Plan Of Treatment Treatment Notes Assessment Notes Drug-induced polyneuropathy Patient has a complicated medical history requiring multiple back surgeries and chemotherapy for cancer. Her last back surgery in 2011 did significantly alleviate her pain but her neuropathy did not improve. It is likely her neuropathy is secondary to chemotherapy. She is currently on gabapentin 600 mg 3 times daily. I wrote down Lyrica and Cymbalta to discuss with her primary care physician Dr. Chanel. I also provided a prescription for topical compound directed at neuropathy. I discussed alternative lacing to her shoes and shoe modification. Follow-up in 3 months or as needed Referrals Referral Date Details 01/05/2024 01/05/2024, see alyce doyle order Progress Notes * BRAYDEN, MaryrenettaOneliaOB:1950 (73 yo F)Acc No.[id number]:01/04/2024 New Patient Patient: C LAUS, Renuka Provider: Beth Billingsley DPM, MS :1950 A ge:73 Y S ex:Female Date:01/04/2024 Address:[address] [place] [address] [address] RADHA SHIPMAN, [id number] Pcp:Mervin Chanel, DO Check In:10:21 AM ESTCheck O ut:11:01 AM EST Subjective: * Chief Complaints: * P ain and neuropathy in feet * HPI: G eneral: Patient in office today for initial evaluation for left foot pain with neuropathy, referred from Dr. Jairo Chanel. She states she has had worsening neuropathy over the last year and has developed pain across the top of her left foot and stabbing pain to her left great toe that wakes her up at night. Xrays taken [facility] from [facility] on 12.14.23. * ROS: G eneral/Constitutional: Chills d enies. F ever d enies. W eight gain?denies. W eight loss d enies. S kin: Skin Ulcers d enies. S kin lesion(s) d enies. ? C ardiovascular: Difficulty breathing on exertion d enies. L eg cramps?denies. E wiliam d enies. C hest pain d enies. R espiratory: Difficulty breathing d enies. D yspnea d enies.?Cough d enies. G astrointestinal: Diarrhea d enies. N ausea d enies. V omiting?denies. M usculoskeletal: Bone/Joint Symptoms d enies. C long-term Pain d enies.?Leg cramps d enies. N eurologic: Numbness d enies. T ingling d enies . G ait abnormality d enies. ? H ematology: Anemia D enies. E asy bruising d enies. ? A ll Other Systems: Review of Systems (ROS) S ee HPI for details,All others negative except those mentioned in HPI. * Active Problem List G62.0 Drug-induced polyneu ropathy Modified On:01/04/2024W/U Status:confirmed M19.072 Primary osteoarthrit is, left ankle and foot Modified On:01/04/2024W/U Status:confirmed * Medical History: * Surgical History: c holecystectomy back surgeries x3 mascetomy reconstruction presacral mass knee replacement x2 rotator cuff * Hospitalization/Major Diagno stic Procedure: * Family History: F ather: diagnosed with Other malignant neoplasm of unspecified site. M other: diagnosed with Other malignant neoplasm of unspecified site. * Social History: T obacco Use: T obacco Control (Standard) T obacco use: N onsmoker * Medications: T akingAspirin 81(Aspirin) 81 MG Tablet Delayed Release 1 tablet Orally Once a day Baclofen 20 MG Tablet 1 tablet Administer without regards to meals as needed Orally Twice a day Carvedilol 6.25 MG Tablet 1 tablet with food Orally Twice a day Enalapril Maleate 2.5 MG Tablet 1 tablet Orally Once a day Gabapentin 300 MG Capsule 1 capsule Orally Once a day Omeprazole 40 MG Capsule Delayed Release 1 capsule 30 minutes before morning meal Orally Once a day traMADol HCl 50 MG Tablet 1 tablet as needed Orally Once a day traZODone HCl 50 MG Tablet 1 tablet at bedtime as needed Orally Once a day Medication List reviewed and reconciled with the patientTaking Aspirin 81(Aspirin) 81 MG Tablet Delayed Release 1 tablet Orally Once a day Taking Baclofen 20 MG Tablet 1 tablet Administer without regards to meals as needed Orally Twice a day Taking Carvedilol 6.25 MG Tablet 1 tablet with food Orally Twice a day Taking Enalapril Maleate 2.5 MG Tablet 1 tablet Orally Once a day Taking Gabapentin 300 MG Capsule 1 capsule Orally Once a day Taking Omeprazole 40 MG Capsule Delayed Release 1 capsule 30 minutes before morning meal Orally Once a day Taking traMADol HCl 50 MG Tablet 1 tablet as needed Orally Once a day Taking traZODone HCl 50 MG Tablet 1 tablet at bedtime as needed Orally Once a day Medication List reviewed and reconciled with the patient * Allergies: P enicillin: hivesLipitor: hivesno[Allergies Verified] Objective: * Vitals: W t:149lbs, Ht: 61.5 in, Temp:97.8F, HR:82/min, BMI:27.69Index, Pain scale:41-10, Oxygen sat %:99%, Ht-cm: 156.21 cm, Wt-k.59 kg. * Examination: P odiatry Examination: SKIN: s kin intact, n o sign of infection. MUSCULOSKELETAL: P alpable osteophytes over the left dorsal midfoot. No significant deformity. Strength on plantarflexion dorsiflexion is equal and symmetric and within normal limits. NEUROLOGICAL: L ight touch sensation is diminished to the dorsal forefoot. Protective sensation is diminished and vibratory sensation is absent. VASCULAR: P edal pulses palpable, C apillaryrefill is brisk to toe, no significant swelling. X -rays obtained previously show moderate to severe midfoot arthrosis. No fracture. Assessment: * Assessment: 1. D rug-induced polyneuropathy - G62.0 (Primary) 2 . P rimary osteoarthritis, left ankle and foot - M19.072 Plan: * Treatment: * Procedure Codes: * * Sign off status: Completed Visit Status: C HK (Check Out) true * Provider: Beth Billingsley DPM, MS Date: 0 01/04/2024 Generated for Alayna jordan/Scott/Zafaritting on: 0 10/13/2024 09:38 AM EDT History and Physical Notes * Examination Category Sub-Category Detail Notes Category Not es Podiatry Examination SKIN: skin intact, no sign of infection X-rays obtained previously show moderate to severe midfoot arthrosis. No fracture. MUSCULOSKELETAL: Palpable osteophytes over the left dorsal midfoot. No significant deformity. Strength on plantarflexion dorsiflexion is equal and symmetric and within normal limits NEUROLOGICAL: Light touch sensatio n is diminished to the dorsal forefoot. Protective sensation is diminished and vibratory sensation is absent VASCULAR: Pedal pulses palpable, Capillary refill is brisk to toe, no significant swelling Consultation Request Notes Referral Date Referring Provider Referred Provider Not 01/05/2024 Bradford Billingsley , riri attach ed order
--- OUTSIDE RECORDS SUMMARY | 2024-09-29 12:02 | XMS_ITS | Continuity of Care Document ---
Author Organization [facility] Address [address] [place] [address] Phone Support Name Relationship Address Phone Roya Glasgow Personal Relationship Unknown Doug Owen Emergency Contact [address] [address] Prisca Bhatti Emergency Contact Unknown Mervin Chanel DO Personal Relationship [address] [place] [address] Natan Cole II, MD Personal Relationship [address] [place] [address] Care Teams Patient Care Team Team Status: Active Member Role Status Heidi Chanel DO Primary Care Provider Active Visit Care Team Team Status: Inactive Member Role Status Heidi Chanel DO Primary Care Provide r, Attending Provider Active Start: July 03, 2024 End: July 03, 2024 Visit Care Team Team Status: Inactive Member Role Status Heidi Chanel DO Primary Care Provider Active Start: July 24, 2024 End: July 24, 2024 Natan Cole II, MD Attending Provider Active Start: July 24, 2024 End: July 24, 2024 Visit Care Team Team Status: Inactive Member Role Status Heidi Chanel DO Primary Care Provide r, Attending Provider Active Start: September 04, 2024 End: September 04, 2024 Visit Care Team Team Status: Active Member Role Status Heidi Chanel DO Primary Care Provide r, Attending Provider Active Start: September 05, 2024 Patient Care Team Team Status: Inactive Member Role Status Heidi Chanel DO Primary Care Provide r, Attending Provider Active Start: September 29, 2024 End: September 29, 2024 Chief Complaint and Reason for Visit Chief Complaint Admit Date The Priyank kincaid/u July 03, 2024 1:18 pm 3 WEEKS July 24, 2024 11: 07am Fatigued September 04, 2024 10:26a m Weakness/Mobility Issues September 29, 2024 11:34am Reason for Visit Admit Date Anemia July 03, 2024 1:18 pm Cervical spondylosis with radiculopathy July 03, 2024 1:18pm Chronic HFrEF (heart failure with reduce d ejection fraction) July 03, 2024 1:18pm Chronic kidney disease July 03, 2024 1 :18pm Chronic venous insufficiency of lower ex tremity July 03, 2024 1:18pm Hypertension July 03, 2024 1:18 pm Lumbar stenosis without neurogenic my ication July 03, 2024 1:18pm Left knee pain July 03, 2024 1:18 pm History of total left knee replacement M [facility] 2024 11:07am Pes anserinus bursitis of left knee Jarrod 2024 11:07am Anemia September 04, 2024 10:26a m Cervical spondylosis with radiculopathy September 04, 2024 10:26am Chemotherapy-induced peripheral neuropat hy September 04, 2024 10:26am Chronic HFrEF (heart failure with reduce d ejection fraction) September 04, 2024 10:26am Chronic kidney disease September 04, 2024 10: 26am Chronic venous insufficiency of lower ex tremity September 04, 2024 10:26am Hypertension September 04, 2024 10:26a m Lumbar stenosis without neurogenic my ication September 04, 2024 10:26am Opiate analgesic use agreement exists Ma y 2024 10:26am Left knee pain September 04, 2024 10:26a m Allergies, Adverse Reactions, Alerts Allergen Type Severity Reaction Last Updated Verified Status atorvastatin Allergy Unknown Hives September 29, 2024 11:41am Yes Active levofloxacin Allergy Unknown Unknown Reaction September 29, 2024 11: 41am Yes Active Penicillins Allergy Unknown Hives September 29, 2024 11:41am Yes Active Social History Smoking Status Status Start Date End Date Date of Observa tion Never smoked tobacco (finding) September 01, 2024 9:54am Observation Status Observation Response Date of Response Patient Sex Female September 29, 2024 1 2:26pm Assigned Sex Female [birth year], 1 950 Family History Relationship Condition Age at Onset Recorded Date/T demetria mother Malignant neoplasm of breast Unknown father Malignant neoplasm of testicle Unknown Unknown brother Leukemia Unknown Problems Active Problems Medical Problem Onset Date Status Cervical spondylosis with radiculopathy Active Chronic venous insufficiency of lower extremity Active Unsteady gait when walking Activ e Nocturnal leg cramps Active Impaired mobility and activities of daily living Active Spondylolisthesis, lumbar region Active Pes anserinus bursitis of left knee Active Fatigue Active Osteoporosis Active Orthostatic hypotension Active Opiate analgesic use agreement exists Active Anemia Active Contusion Active History of total left knee replacement Active Dyspnea Active Mitral regurgitation Active Chronic HFrEF (heart failure with reduced ejecti on fraction) Active Chronic kidney disease Active History of lumbar fusion Active Inflammation of right sacroiliac joint Active Chemotherapy-induced peripheral neuropathy Active Neck pain Active GERD (gastroesophageal reflux disease) Active Hypertension Active Left bundle branch block Active Lumbar stenosis without neurogenic claudication Active Inactive/Resolved Problems Medical Problem Onset Date Status Acute kidney injury Resolved Diarrhea Resolved Knabf-gl-[id number] kidney injury R esolved Fall Resolved Hypokalemia Resolved Medications Medication Status Dose Units Route Directions Qty Days St art Date Stop Date End Date Instructions Carvedilol 6.25 mg tablet Discont inued 0 .ROUTE .COMPLEX 180 2023 2:53pm 2024 8:24a m TAKE 1 TABLET BY MOUTH TWICE A DAY Tolterodine 2 mg tablet Discont inued 2 MG PO Twice daily 60 July 28, 2023 10:14a m September 07, 2023 7:32a m Baclofen 20 mg tablet Discont inued 20 MG PO Daily at bedtime August 12, 2023 7:48pm September 14, 2023 1:12p m Baclofen 20 mg tablet Discont inued 0 .ROUTE .COMPLEX 90 September 14, 2023 1:12pm 2024 8:24a m TAKE 1 TABLET BY MOUTH EVERYDAY AT BEDTIME Tramadol 50 mg tablet Discont inued 50 MG PO Every 6 hours 60 October 11, 2023 6:08pm Decem 2023 6:45p m Fluticasone Propionate 50 mcg/actuatio n spray,suspen lin Discont inued 2 SPRAY INTRAN JESSICA Daily as needed for Nasal Congestion December 15, 2023 1:23pm Septzion viet 2023 8:38a m Trazodone 50 mg tablet Discont inued 50 MG PO Daily at bedtime as needed December 31, 2023 12:00a m Augus t 2023 1:35p m 1/2 to 1 tablet Trazodone 50 mg tablet Discont inued 0 .ROUTE .COMPLEX 90 December 31, 2023 1:35pm Decem 2023 6:45p m TAKE 1/2 - 1 TABLET BY MOUTH EVERYDAY AT BEDTIME Fluticasone Propionate 50 mcg/actuatio n spray,suspen lin Active 0 .ROUTE .COMPLEX 48 Sept2023 8:38am USE 2 SPRAYS IN EACH NOSTRIL ONCE A DAY NEEDED FOR NASAL CONGESTION Omeprazole 40 mg capsule,connor yed release(DR/E C) Active 0 .ROUTE .COMPLEX 90 Janobe r 2023 8:39am TAKE 1 CAPSULE BY MOUTH ONCE A DAY ON EMPTY STOMACH FOLLOWED IN 30 MINUTES BY BREAKFAST FOR 90 DAYS Carvedilol 6.25 mg tablet Discont inued 0 .ROUTE .COMPLEX 180 2024 8:24am Febru 2024 2:27p m TAKE 1 TABLET BY MOUTH TWICE A DAY Baclofen 20 mg tablet Active 0 .ROUTE .COMPLEX 90 2024 8:24am TAKE 1 TABLET BY MOUTH EVERYDAY AT BEDTIME Tramadol 50 mg tablet Discont inued 50 MG PO Every 6 hours as needed for pain 30 30 ua 2024 12:12p m Febru sage2024 9:54p m Tramadol 50 mg tablet Discont inued 50 MG PO Every 6 hours as needed for pain 30 30 Februa ry 2024 9:53pm Febru sage 2024 6:31p m Tramadol 50 mg tablet Discont inued 50 MG PO Every 6 hours as needed for pain 30 30 ua ry 2024 6:31pm Febru sage 2024 10:17 pm Tramadol 50 mg tablet Discont inued 50 MG PO Every 6 hours as needed for pain 30 30 ua 2024 10:17p m July 06, 2024 1:01p m Trazodone 50 mg tablet Discont inued 0 .ROUTE .COMPLEX 90 2024 8:08am September 29, 2024 12:04 pm TAKE 1/2 - 1 TABLET BY MOUTH EVERYDAY AT BEDTIME Metoprolol Tartrate 25 mg tablet Discont inued 25 MG PO Daily 2024 1:00am Febru sage 2024 10:02 pm Metoprolol Tartrate 25 mg tablet Discont inued 25 MG PO Daily 2024 10:01p m July 21, 2024 4:35p m Tolterodine 1 mg tablet Discont inued 1 MG PO Twice daily July 06, 2024 1:00am July 29, 2024 3:43p m Tramadol 50 mg tablet Discont inued 50 MG PO Every 6 hours as needed for pain July 06, 2024 1:00pm August 16, 2024 5:45p m Metoprolol Succinate 25 mg tablet extended release 24 hr Active 0 .ROUTE .COMPLEX July 21, 2024 4:35pm TAKE 1 TABLET BY MOUTH EVERY DAY Tolterodine 1 mg tablet Active 0 .ROUTE .COMPLEX July 29, 2024 3:43pm TAKE 1 TABLET BY MOUTH TWICE A DAY Tramadol 50 mg tablet Active 50 MG PO Every 6 hours as needed for pain 60 August 16, 2024 5:44pm Lisinopril 2.5 mg tablet Active 2.5 MG PO Daily August 21, 2024 9:08am Torsemide 20 mg tablet Active 20 MG PO Daily September 18, 2024 12:48p m Acetaminophe n 500 mg Tablet Discont inued 500 MG PO Q4H as needed for Pain September 24, 2021 12:00a m Decem wilbur 2022 9:14a m Take with tramadol Gabapentin 300 mg capsule Discont inued MG September 24, 2021 12:00a m September 24, 2021 10:46 am Gabapentin 300 mg capsule Discont inued 900 MG PO BID@1400,September 24, 2021 12:00a m Decem wilbur 2023 3:55p m Calcium Carbonate-Vi tamin D3 (Calcium 600 + D(3)) 600 mg-10 mcg (400 unit) Tablet Active 1 TAB PO Twice daily September 24, 2021 12:00a m Cyclobenzapr ine 10 mg tablet Discont inued 10 MG PO Three times daily as needed for back spasms October 09, 2021 12:00a m 2021 11:58 am Cephalexin 500 mg capsule Discont inued 500 MG PO Three times daily October 09, 2021 12:00a m 2021 11:56 am Oxycodone 5 mg Tablet Discont inued 5 - 10 MG PO Q6H as needed for Pain 40 8 October 09, 20212021 12:00 pm Prednisone 10 mg tablets,dose pack Discont inued 1 dose pk PO per package directions October 09, 2021 12:00a m 2021 12:00 pm take 4 tabs for 3 days then take 3 tabs for 3 days then take 2 tabs for 3 days then take 1 tab for 3 days Oxybutynin Chloride 15 mg tablet extended release 24hr Discont inued 15 MG PO Daily [facility] er 2021 1:00am 2022 2:38p m Tramadol 50 mg tablet Discont inued 50 MG PO Twice daily [facility] er 2021 1:00am 2021 11:36 am Melatonin 10 mg Tablet Active 10 MG PO Bedtime as needed for Sleep [facility] er 2021 1:00am Cyclobenzapr ine 10 mg tablet Discont inued 10 MG PO Three times daily as needed for back spasms 40 er 2021 1:00am [facility] 2022 2:36p m Sulfamethoxa zole-Trimeth oprim (Bactrim Ds) 800-160 mg tablet Discont inued 1 TAB PO Q12H 10 er 2021 1:00am 2022 2:39p m Oxycodone 5 mg tablet Discont inued 5 - 10 MG PO Q6H as needed for Pain 40 8 b er 2021 2:38p m Prednisone 10 mg tablets,dose pack Discont inued 1 dose pk PO per package directions 2021 1:00am 2022 2:38p m take 4 tabs for 3 days then take 3 tabs for 3 days then take 2 tabs for 3 days then take 1 tab for 3 days Torsemide 20 mg tablet Discont inued 20 MG PO Daily Novem er 2022 1:00am July 03, 2024 2:56p m Trazodone 50 mg tablet Discont inued 50 MG PO Daily at bedtime as needed for sleeplessne ss Novemb er 2022 1:00am Dece wilbur 2022 3:08p m Enalapril Maleate 2.5 mg tablet Discont inued 2.5 MG PO Twice daily [facility] er 2022 1:00am July 03, 2024 2:49p m On Hold: Resume on 06/12/24. Tramadol 50 mg tablet Discont inued 50 MG PO Q6H as needed for Pain [facility] er 2022 1:00am Dece wilbur 2022 9:14a m Baclofen 20 mg Tablet Discont inued 20 MG PO Daily at bedtime [facility] er 2022 1:00am Dece wilbur 2022 9:14a m Aspirin 81 mg Tablet,Delay ed Release (Dr/Ec) Active 81 MG PO Daily Dece er 2022 1:00am Acetaminophe n (Tylenol) 325 mg Tablet Discont inued 650 MG PO Q4H as needed for Mild Pain 0 Dece er 2022 1:00am Dece wilbur 2022 3:08p m Cyclobenzapr ine 10 mg Tablet Discont inued 10 MG PO Every 8 hours 0 Dece er 2022 1:00am Dece wilbur 2022 5:33p m Alum-Mag Hydroxide-Si meth (Mag-Al Plus) 200-200-20 mg/5 mL Suspension Discont inued 30 ML PO Q4H as needed for Heartburn 0 Decemb er 2022 1:00am Dece wilbur 2022 3:08p m Magnesium Hydroxide (Milk Of Magnesia) 400 mg/5 mL Suspension Discont inued 30 ML PO Bedtime as needed for Constipatio n 0 Decemb er 2022 1:00am Dece wilbur 2022 3:08p m Sennosides-D ocusate Sodium 8.6-50 mg Tablet Discont inued 2 TAB PO Twice daily 0 Decemb er 2022 1:00am Dece wilbur 2022 3:07p m Oxycodone 5 mg Tablet Discont inued 5 MG PO Every 6 hours as needed for Pain Scale 1 - 5 0 Decemb er 2022 Dece wilbur 2022 5:34p m Oxycodone 5 mg Tablet Discont inued 10 MG PO Every 6 hours as needed for Pain Scale 6 - 10 0 Decemb er 2022 Dece wilbur 2022 5:34p m Cyclobenzapr ine 10 mg tablet Discont inued 10 MG PO Every 8 hours as needed for Spasms Decemb er 2022 5:33pm Dece wilbur 2022 3:07p m Oxycodone 5 mg tablet Discont inued 5 MG PO Every 6 hours as needed for Pain Scale 4-6 Decemb er 2022 5:33pm Dece wilbur 2022 3:08p m Oxycodone 5 mg tablet Discont inued 10 MG PO Every 6 hours as needed for Pain Scale 7-10 Decemb er 2022 5:33pm Dece wilbur 2022 3:08p m Acetaminophe n 500 mg Tablet Active 500 MG PO Q4H as needed for Pain 0 Decemb er 2022 1:00am Cyclobenzapr ine 10 mg tablet Discont inued 10 MG PO Every 8 hours as needed for Spasms 30 10 Decemb er 2022 3:07pm September 07, 2023 7:30a m Sennosides-D ocusate Sodium 8.6-50 mg Tablet Discont inued 2 TAB PO Twice daily 120 30 Decemb er 2022 3:07pm Dece wilbur 2023 6:39p m Oxycodone 5 mg tablet Discont inued 5 MG PO Every 6 hours as needed for Pain (Scale Score 7-10) 20 5 Decemb er 2022September 07, 2023 7:31a m Montelukast 10 mg tablet Active 10 MG PO Bedtime y 2024 1:00am Carvedilol 3.125 mg Tablet Discont inued 3.125 MG PO Twice daily with meals 60 30 Februa 2024 1:00am Febru sage2024 11:07 am Trazodone 100 mg Tablet Discont inued 100 MG PO Bedtime 30 30 2024 1:00am Febru sage2024 8:08a m Latanoprost 0.005 % drops Discont inued 1 DROPS EYE-MT TH Daily October 04, 2020 12:00a m Novem wilbur 2021 11:59 am Carvedilol 6.25 mg tablet Discont inued 6.25 MG PO Twice daily October 04, 2020 12:00a m Febru sage 2023 2:53p m Gabapentin 600 mg Tablet Discont inued 600 MG PO Daily at bedtime October 04, 2020 12:00a m September 24, 2021 10:44 am Tramadol 50 mg tablet Discont inued 50 MG PO Twice daily October 04, 2020 12:00a m October 09, 2021 12:22 pm Baclofen 20 mg tablet Discont inued 20 MG PO Bedtime October 04, 2020 12:00a m Novem wilbur 2021 11:36 am Gabapentin 300 mg capsule Discont inued 300 MG PO Every morning October 04, 2020 12:00a m Decem wilbur 2023 6:36p m Omeprazole 20 mg capsule,connor yed release(DR/E C) Discont inued 20 MG PO Daily October 04, 2020 12:00a m Octob er 2023 8:40a m Hydrochlorot hiazide 25 mg tablet Discont inued 25 MG PO Daily October 04, 2020 12:00a m Decem wilbur 2022 3:08p m Fluticasone Propionate 50 mcg/actuatio n spray,suspen lin Discont inued 2 SPRAY INTRAN JESSICA Daily as needed for Nasal Congestion October 04, 2020 12:00a m Augus t 2023 1:24p m Trazodone 50 mg tablet Discont inued 50 MG PO Bedtime Decemb er 2023 1:00am Febru sage2024 2:27p m Tramadol 50 mg tablet Discont inued 50 MG PO Every 6 hours as needed for pain Decemb er 2023 1:00am [facility] wilbur 2023 4:51p m Torsemide 10 mg tablet Discont inued 10 MG PO Daily [facility] er 2023 1:00am [facility] 2024 3:28p m On Hold: Resume on 04/16/24. Please hold until seen by your PCP/cardiolog y. Tolterodine 2 mg tablet Discont inued 2 MG PO Twice daily July 28, 2023 12:00a m July 28, 2023 10:14 am Baclofen 20 mg tablet Discont inued 20 MG PO Daily at bedtime August 12, 2023 12:00a m August 12, 2023 7:49p m Doxycycline Hyclate 100 mg tablet Discont inued 100 MG PO Twice daily 19 02November 01, 2023 12:00a m [facility] wilbur 2023 3:26p m Doxycycline Monohydrate 100 mg capsule Discont inued 100 MG PO Twice daily [facility] er 2023 1:00am [facility] 2024 8:01p m Metolazone 2.5 mg tablet Discont inued 2.5 MG PO Daily [facility] er 2023 1:00am July 03, 2024 2:51p m On Hold: Resume on 06/12/24. Gabapentin 300 mg capsule Discont inued 600 MG PO Three times daily [facility] er 2023 3:41pm July 03, 2024 2:56p m Tramadol 50 mg tablet Discont inued 50 MG PO Every 6 hours as needed for pain 30 30 [facility] er 2023 4:49pm [facility]2024 12:13 pm Methylpredni solone (Medrol (Jeremy)) 4 mg tablets,dose pack Discont inued 0 PO per package directions 2024 1:00am July 24, 2024 11:16 am PO PER PKG DIR for 6 days Gabapentin 300 mg capsule Discont inued 600 MG PO Twice daily July 03, 2024 2:50pm July 03, 2024 5:40p m Torsemide 20 mg tablet Discont inued 20 MG PO .QOD July 03, 2024 2:51pm September 18, 2024 12:49 pm Lisinopril 2.5 mg tablet Discont inued 2.5 MG PO Daily 30 July 03, 2024 1:00am August 21, 2024 9:09a m Gabapentin 300 mg capsule Discont inued 300 MG PO .COMPLEX July 03, 2024 3:35pm September 29, 2024 12:04 pm 300 mg orally; Mirabegron (Myrbetriq) 25 mg tablet extended release 24 hr Discont inued 25 MG PO Daily July 04, 2024 1:00am July 06, 2024 12:58 pm Gabapentin 300 mg capsule Active 300 MG PO Four times daily 120 September 29, 2024 11:59a m Trazodone 50 mg tablet Active 100 MG PO Daily at bedtime 180 90 September 29, 2024 12:03p m Tramadol 50 mg tablet Discont inued 50 MG PO Every 6 hours Febr2023 1:00am October 11, 2023 6:10p m Immunizations Immunization Event Date Not Given Reason Dose Number Manager Transplant Lot Number Vaccine Information Statement (VIS) Detail Pfizer/Comirnaty , Pediatric Age 5-11 February 22, 2022 COVID-19 mRNA-1273 (Moderna) May 10, 2022 COVID-19 mRNA, Comirnaty (Pfizer) June 10, 2020 COVID-19 mRNA, Comirnaty (Pfizer) August 28, 2021 COVID-19 mRNA, Comirnaty (Pfizer) July 01, 2020 COVID-19 mRNA, Comirnaty (Pfizer) January 28, 2021 COVID-19 Comirnaty (7 Billion People) Tri-Sucrose 12+ August 28, 2021 COVID-19 mRNA Bivalent Booster (Pfizer) February 25, 2022 COVID-19 (PFIZER) 12Y and older January 22, 2023 Quadrivalent Influenza (mdv) April 02, 2016 Fluzone TIV High-Dose 65YR+ February 02, 2017 Fluzone TIV High-Dose 65YR+ February 17, 2018 Fluzone QIV High-Dose 65YR+ January 28, 2021 Influenza vaccine, quadrivalent, adjuvanted January 14, 2022 Influenza vaccine, quadrivalent, adjuvanted January 22, 2023 influenza, unspecified formulation May 05, 2016 influenza, unspecified formulation February 02, 2019 influenza, unspecified formulation January 31, 2020 influenza, unspecified formulation January 14, 2022 Pneumococcal Conjugate Vaccine, 13 valent September 16, 2015 Pneumococcal Conjugate Vaccine, 13 valent May 11, 2022 Pneumococcal Polysacc. Vaccine, 23 valent February 21, 2014 Pneumococcal Polysacc. Vaccine, 23 valent July 20, 2020 Pneumococcal Polysacc. Vaccine, 23 valent January 31, 2013 Pneumococcal Polysacc. Vaccine, 23 valent May 03, 2015 Pneumococcal Polysacc. Vaccine, 23 valent February 08, 2017 Quadrivalent Influenza May 05, 2016 Quadrivalent Influenza February 16, 2017 Quadrivalent Influenza June 09, 2017 Quadrivalent Influenza February 17, 2019 Quadrivalent Influenza February 01, 2020 Zoster Vaccine Recombinant, Adjuvanted February 28, 2020 Zoster Vaccine Recombinant, Adjuvanted May 27, 2020 Tetanus, Diphtheria adult, 5 Lf pres free abs February 21, 2014 Trivalent Influenza Vaccine January 01, 2022 Shingles (Zoster) February 28, 2020 Shingles (Zoster) May 27, 2020 Medical Equipment Device Date Implanted Date Explanted Device Deta ils Spinal fusion graft kit March 30, 2022 LINDA: [id number] Issuing Agency: [facility] Device Id: [id number] Expiration Date: 2023-10-01 Lot Number: [id number] Polymeric spinal fusion cage, non-sterile March 30, 2022 LINDA: ()[id number] Issuing Agency: [facility] Device Id: [id number] Lot Number: [id number] Spinal fusion graft kit April 13, 2023 LINDA: ()[id number] Issuing Agency: [facility] Device Id: [id number] Expiration Date: 2024-05-02 Lot Number: [id number] Polymeric spinal fusion cage, sterile April 13, 2023 LINDA: ()[id number] Issuing Agency: [facility] Device Id: [id number] Expiration Date: 2024-05-26 Lot Number: [id number] Bone-screw internal spinal fixation system, non-sterile April 13, 2023 LINDA: [id number] Issuing Agency: [facility] Device Id: [id number] Bone-screw internal spinal fixation system, non-sterile April 13, 2023 LINDA: [id number] Issuing Agency: [facility] Device Id: [id number] Bone-screw internal spinal fixation system, non-sterile April 13, 2023 LINDA: [id number] Issuing Agency: [facility] Device Id: [id number] Bone-screw internal spinal fixation system, non-sterile April 13, 2023 LINDA: [id number] Issuing Agency: [facility] Device Id: [id number] Bone-screw internal spinal fixation system, non-sterile April 13, 2023 LINDA: [id number] Issuing Agency: [facility] Device Id: [id number] Bone-screw internal spinal fixation system, non-sterile April 13, 2023 LINDA: [id number] Issuing Agency: [facility] Device Id: [id number] Bone-screw internal spinal fixation system, non-sterile April 13, 2023 LINDA: [id number] Issuing Agency: [facility] Device Id: [id number] Bone-screw internal spinal fixation system, non-sterile April 13, 2023 LINDA: [id number] Issuing Agency: [facility] Device Id: [id number] Bone-screw internal spinal fixation system, non-sterile April 13, 2023 LINDA: [id number] Issuing Agency: [facility] Device Id: [id number] Bone-screw internal spinal fixation system, non-sterile April 13, 2023 LINDA: [id number] Issuing Agency: [facility] Device Id: [id number] Bone-screw internal spinal fixation system, non-sterile March 30, 2022 April 13, 2023 LINDA: +[id number] Issuing Agency: [facility] Device Id: [id number] Bone-screw internal spinal fixation system, non-sterile March 30, 2022 April 13, 2023 LINDA: [id number] Issuing Agency: [facility] Device Id: [id number] Bone-screw internal spinal fixation system, non-sterile March 30, 2021April 13, 2023 LINDA: [id number] Issuing Agency: [facility] Device Id: [id number] Bone-screw internal spinal fixation system, non-sterile March 30, 2021April 13, 2023 LINDA: [id number] Issuing Agency: [facility] Device Id: [id number] Bone-screw internal spinal fixation system, non-sterile March 30, 2021April 13, 2023 LINDA: [id number] Issuing Agency: [facility] Device Id: [id number] Bone-screw internal spinal fixation system, non-sterile March 30, 2021April 13, 2023 LINDA: +[id number] Issuing Agency: [facility] Device Id: [id number] Bone-screw internal spinal fixation system, non-sterile March 30, 2021April 13, 2023 LINDA: +[id number] Issuing Agency: [facility] Device Id: [id number] Bone-screw internal spinal fixation system, non-sterile March 30, 2021April 13, 2023 LINDA: [id number] Issuing Agency: [facility] Device Id: [id number] Bone-screw internal spinal fixation system, non-sterile March 30, 2021April 13, 2023 LINDA: [id number] Issuing Agency: [facility] Device Id: [id number] Bone-screw internal spinal fixation system, non-sterile March 30, 2021April 13, 2023 LINDA: [id number] Issuing Agency: [facility] Device Id: [id number] Relevant Diagnostic Tests and/or Laboratory Data Laboratory Results Test Date/Time Result Interpretation Reference Range Result Comment Performing Site Vitamin B12 Level September 05, 2024 10:38am 491 pg/mL [id number] Performed at: [address] [id number] Director: Jerad Medina PhD, Phone: [phone] Folate September 05, 2024 10:38am 16.50 ng/mL 8.60-58.90 Ferritin September 05, 2024 10:38am 45.0 ng/mL 8.0-252.0 Thyroid Stimulating Hormone 3rd Gen September 05, 2024 10:38am 3.165 u[iU]/mL 0.358-3.74 0 Anion Gap September 05, 2024 10:38am 13.5 Basophils # (Auto) September 05, 2024 10:38am 0.1 10 3/uL 0.0-0.1 Albumin/Globulin Ratio September 05, 2024 10:38am 1.1 Basophils (%) (Auto) September 05, 2024 10:38am 1.0 % 0.2-2.0 Albumin September 05, 2024 10:38am 3.7 g/dL 3.4-5.0 Eosinophils # (Auto) September 05, 2024 10:38am 0.3 10 3/uL 0.0-0.7 Alkaline Phosphatase September 05, 2024 10:38am 82 U/L 46-116 Eosinophils (%) (Auto) September 05, 2024 10:38am 4.6 % 0.9-7.0 Alanine Aminotransferase (ALT/SGPT) September 05, 2024 10:38am 20 U/L 14-59 Hematocrit September 05, 2024 10:38am 33.6 % Below low normal 36.0-48.0 Aspartate Amino Transf (AST/SGOT) September 05, 2024 10:38am 21 U/L 15-37 Hemoglobin September 05, 2024 10:38am 11.0 g/dL Below low normal 12.0-16.0 BUN/Creatinine Ratio September 05, 2024 10:38am 27.8 Immature Granulocyte # (Auto) September 05, 2024 10:38am 0.01 10 3/uL 0.00-0.03 Blood Urea Nitrogen September 05, 2024 10:38am 44.0 mg/dL Above high normal 7.0-18.0 Immature Granulocyte % (Auto) September 05, 2024 10:38am 0.2 % 0.0-0.5 Calcium Level September 05, 2024 10:38am 9.5 mg/dL 8.5-10.1 Lymphocytes # (Auto) September 05, 2024 10:38am 1.5 10 3/uL 1.2-3.8 Chloride Level September 05, 2024 10:38am 101 mmol/L 98-107 Lymphocytes (%) (Auto) September 05, 2024 10:38am 24.5 % 20.5-60.0 Carbon Dioxide Level September 05, 2024 10:38am 29.0 mmol/L 21.0-32.0 Mean Corpuscular Hemoglobin September 05, 2024 10:38am 27.2 pg 26.7-34.0 Creatinine September 05, 2024 10:38am 1.58 mg/dL Above high normal 0.55-1.02 Mean Corpuscular Hemoglobin Concent September 05, 2024 10:38am 32.7 g/dL 29.9-35.2 Estimated GFR () September 05, 2024 10:38am 39 Below low normal >=60 mL/min/1.7 3m 2 Mean Corpuscular Volume September 05, 2024 10:38am 83.2 fL 81.0-99.0 Estimated GFR (Non- September 05, 2024 10:38am 32 Below low normal >=60 mL/min/1.7 3m 2 Monocytes # (Auto) September 05, 2024 10:38am 0.7 10 3/uL 0.3-0.8 Globulin September 05, 2024 10:38am 3.5 g/dL Monocytes (%) (Auto) September 05, 2024 10:38am 11.7 % 1.7-12.0 Glucose Level September 05, 2024 10:38am 89 mg/dL 74-106 Mean Platelet Volume September 05, 2024 10:38am 10.2 fL 9.5-13.5 Potassium Level September 05, 2024 10:38am 4.5 mmol/L 3.5-5.1 Neutrophils # (Auto) September 05, 2024 10:38am 3.5 10 3/uL 1.4-6.5 Sodium Level September 05, 2024 10:38am 139 mmol/L 136-145 Neutrophils (%) (Auto) September 05, 2024 10:38am 58.0 % 43.0-75.0 Total Bilirubin September 05, 2024 10:38am 0.4 mg/dL 0.2-1.0 Platelet Count September 05, 2024 10:38am 333 10 3/uL 150-450 Total Protein September 05, 2024 10:38am 7.2 g/dL 6.4-8.2 Red Blood Count September 05, 2024 10:38am 4.04 10 6/uL Below low normal 4.20-5.40 Red Cell Distribution Width September 05, 2024 10:38am 15.6 % Above high normal 11.0-15.0 Corrected White Blood Count September 05, 2024 10:38am 6.1 10 3/uL 4.0-11.0 Vital Signs Vital Reading Result Reference Range Collection Date/Time Height 62 [in_i] July 03, 2024 2:24pm Weight 68.71 kg July 03, 2024 2:24pm Body Temperature 97.8 [degF] 97.6-99.0 July 03, 2024 2:24pm Heart Rate 80 /min 60-100 July 03, 2024 2:24pm Respiratory rate 16 /min 12-July 03, 2024 2:24pm Oxygen saturation by Pulse oximetry 97 % 95-100 July 03, 2024 2:24 pm BP Systolic 135 mm[Hg] 100-140 July 03, 2024 2:24pm BP Diastolic 82 mm[Hg] 60-100 July 03, 2024 2:24pm BMI (Body Mass Index) 27.7 kg/m2 July 03, 2024 2:24pm Height 62 [in_i] September 04, 2024 1 0:32am Weight 72.29 kg September 04, 2024 1 0:32am Heart Rate 67 /min 60-100 September 04, 2024 1 0:32am Respiratory rate 12 /min -September 04 10:32am Oxygen saturation by Pulse oximetry 99 % 95-100 September 04, 2024 10:32a m BP Systolic 121 mm[Hg] 100-140 September 04, 2024 1 0:32am BP Diastolic 73 mm[Hg] 60-100 September 04, 2024 1 0:32am BMI (Body Mass Index) 29.1 kg/m2 August 10:32am Height 62 [in_i] September 29, 2024 11:50am Weight 74.61 kg September 29, 2024 11:50am Heart Rate 73 /min 60-100 September 29, 2024 11:50am Respiratory rate 12 /min 12-September 29, 025 11:50am BP Systolic 131 mm[Hg] 100-140 September 29, 2024 11:50am BP Diastolic 80 mm[Hg] 60-100 September 29, 2024 11:50am BMI (Body Mass Index) 30.0 kg/m2 September 292024 11:50am Advance Directives Advance Directive Response Recorded Date/ Time Advance Directives Yes September 01, 2024 9:54am Insurance Providers Guarantor Renuka Owen Address [address] [place] [address] [place] [address] Contact Info. Home Phone: Payer Policy Id Coverage Id Subscriber's Name Subscriber Id Effective Date Ex[place] [facility] [id number] Renuka Owen [id number] Medicare [id number] Renuka Dey Brayden [id number] Medicare [employer] [id number] Renuka Dey Claus [id number] Encounters Encounter Location(s) Arrival/Admit Date Discharge/Depart Date Provider(s) Departed Physician/Prov ider Office Visit [facility] July 03, 2024 2:18pm July 03, 2024 3:09pm Mervin Chanel DO Departed Physician/Prov ider Office Visit [facility] July 24, 2024 11:07am July 24, 2024 11:35am Derrek Tellez MD Departed Physician/Prov ider Office Visit [facility] September 04, 2024 10:26am September 04, 2024 11:12am Mervin Chanel DO Non-patient / Non-visit [facility] September 05, 2024 10:38am Mervin Chanel DO Departed Physician/Prov ider Office Visit [facility] September 29, 2024 11:34am September 29, 2024 12:25pm Mervin Chanel DO Recent Diagnosis Onset Date Admit Date Anemia July 03, 2024 1:18pm Cervical spondylosis with radiculopathy July 03, 2024 1:18pm Chronic HFrEF (heart failure with reduced ejection fraction) July 03, 2024 1:18pm Chronic kidney disease July 1:18pm Chronic venous insufficiency of lower extremity July 03, 2024 1:18pm Hypertension July 03, 2024 1:18pm Lumbar stenosis without neurogenic claudication July 03, 2024 1:18pm Left knee pain July 03, 2024 1:18pm History of total left knee replacement July 24, 2024 11:07am Pes anserinus bursitis of left knee July 24, 2024 11:07am Anemia September 04, 2024 10 :26am Cervical spondylosis with radiculopathy September 04, 2024 10:26am Chemotherapy-induced peripheral neuropathy September 04, 2024 10:26am Chronic HFrEF (heart failure with reduced ejection fraction) September 04, 2024 10:26am Chronic kidney disease September 04, 2024 10:26am Chronic venous insufficiency of lower extremity September 04, 2024 10:26am Hypertension September 04, 2024 10 :26am Lumbar stenosis without neurogenic claudication September 04, 2024 10:26am Opiate analgesic use agreement exists September 04, 2024 10:26am Left knee pain September 04, 2024 10 :26am Assessments Diagnosis Onset Date Resolution Status Admit Date Anemia acute July 03 1:18pm Cervical spondylosis with radiculopathy acute July 03, 2024 1:18pm Chronic HFrEF (heart failure with reduced ejection fraction) acute July 03, 2024 1:18pm Chronic kidney disease acute Ma rc 2024 1:18pm Chronic venous insufficiency of lower extremity acute July 03 1:18pm Hypertension acute July 03, 2 025 1:18pm Lumbar stenosis without neurogenic claudication acute July 1:18pm Left knee pain noneactive July 03, 2024 1:18pm History of total left knee replacement acute July 24, 2024 11:07am Pes anserinus bursitis of le ft knee acute July 24, 2024 11:07am Anemia acute September 04, 2024 10:26am Cervical spondylosis with radiculopathy acute September 04, 2024 10 :26am Chemotherapy-induced peripheral neuropathy acute September 04, 2 025 10:26am Chronic HFrEF (heart failure with reduced ejection fraction) acute September 04, 2024 10 :26am Chronic kidney disease acute Ma y 2024 10:26am Chronic venous insufficiency of lower extremity acute September 04, 2024 10:26am Hypertension acute September 04 10:26am Lumbar stenosis without neurogenic claudication acute September 04, 2024 10:26am Opiate analgesic use agreeme nt exists acute September 04, 2024 10 :26am Left knee pain noneactive September 04 10:26am Plan of Treatment Author Mervin Chanel [facility] Authored July 03, 2024 6:09 pm I have instructed this patie nt on a low salt diet, exercise and daily weights. I have instructed them to notify the office for any on any unexpected weight gain > 3lbs and /or increased dyspnea on exertion, difficulty breathing during sleep, worsening lower extremity swelling, chest pain or lightheadedness. I have reviewed the GDMT with beta blockers, CRESENCIO/ARB or ARNI, MRA and a SGLT-2i. Unable to tolerate GDMT Resulted in near syncopal episode w/ two falls leading to admission to [facility] and subsequent rehab at [facility] Instructed to wear compression stockings Changed Carvedilol to Metoprolol Succ Changed Enalapril to Lisinopril D/C Metolazone Reduced Torsemide to 20mg qod I have instructed this patient to consume a healthy, low-fat, low-salt diet. I have also encouraged them to continue exercise with weight loss to achieve/maintain a BMI < 30. I have instructed this patient on the correct procedure for obtaining home BP measurements: - rest for 5 minutes w/o talking. - positioned w/ feet on floor and arms supported. - average best 2/3 readings w/ goal < 135/85. - update office w/ home readings in 2 weeks. Continue Lisinopril, Metoprolol, Torsemide without interruption I instructed this patient on the benefits of adequate control of hypertension and diabetes, if appropriate. I have also instructed them to avoid use of NSAIDs due to the adverse effects on renal function. I instructed them on adequate fluid balance and to consume at least 48 oz of fluids daily. I also instructed them to monitor for an unexplained increase in weight and lower extremity edema. They have been instructed to notify the office for any changes or concerns. d/c Metolazone and decrease Torsemide to qod. I have instructed this patient to avoid salt and elevate their lower extremities. I have also recommended use of support stockings. I instructed them to inspect their legs and feet daily for blisters and ulcerations. Reduce Torsemide to qod Monitor edema and weight closely No obvious bleeding per patient: denies hematemesis, hemiptysis, epistaxis, bruising, melena, hematochezia or hematuria. Normal Fe, Fa, B12 Likely anemia of chronic inflammation/disease. May require referral to Hematology Instructed on ROM exercises. - positive Spurling sign w/ left rotation Instructed on heat/ice and Tylenol Continue Baclofen, Gabapentin and Tramadol without interruption - reduced Gabapentin to 300mg bid and 600mg q HS I have instructed this patient to avoid bending, twisting or lifting. I have also instructed on use of intermittent heat and ice as needed. They may schedule a massage or gentle manipulation. I instructed them on the safe use of Tylenol, Lidocaine and stretching exercises. I informed them of alternative modes of treatment for severe pain, which may include referral to physical therapy or pain management. Suffered injury from fall in home. XR reveal intact stable prosthesis w/o fracture Completed evaluation w/ Orthopedics - instructed to use Voltaren Gel for associated bursitis - instructed to continue therapy f/u Orthopedics Author Mervin [facility] Authored September 04, 2024 11:05a m I have instructed this patie nt on a low salt diet, exercise and daily weights. I have instructed them to notify the office for any on any unexpected weight gain > 3lbs and /or increased dyspnea on exertion, difficulty breathing during sleep, worsening lower extremity swelling, chest pain or lightheadedness. I have reviewed the GDMT with beta blockers, CRESENCIO/ARB or ARNI, MRA and a SGLT-2i. Unable to tolerate GDMT Resulted in near syncopal episode w/ two falls leading to admission to [facility] and subsequent rehab at [facility] Instructed to wear compression stockings Changed Carvedilol to Metoprolol Succ Changed Enalapril to Lisinopril D/C Metolazone Reduced Torsemide to 20mg qod but recently back to qd I have instructed this patient to consume a healthy, low-fat, low-salt diet. I have also encouraged them to continue exercise with weight loss to achieve/maintain a BMI < 30. I have instructed this patient on the correct procedure for obtaining home BP measurements: - rest for 5 minutes w/o talking. - positioned w/ feet on floor and arms supported. - average best 2/3 readings w/ goal < 135/85. - update office w/ home readings in 2 weeks. Continue Lisinopril, Metoprolol, Torsemide without interruption I instructed this patient on the benefits of adequate control of hypertension and diabetes, if appropriate. I have also instructed them to avoid use of NSAIDs due to the adverse effects on renal function. I instructed them on adequate fluid balance and to consume at least 48 oz of fluids daily. I also instructed them to monitor for an unexplained increase in weight and lower extremity edema. They have been instructed to notify the office for any changes or concerns. d/c Metolazone and decrease Torsemide to qod. Recently restarted daily Torsemide Orders to recheck GFR I have instructed this patient to avoid salt and elevate their lower extremities. I have also recommended use of support stockings. I instructed them to inspect their legs and feet daily for blisters and ulcerations. Restarted daily Torsemide about 10 days ago Monitor edema and weight closely No obvious bleeding per patient: denies hematemesis, hemiptysis, epistaxis, bruising, melena, hematochezia or hematuria. Normal Fe, Fa, B12 in Dec - recheck Ferritin, B12, FA Likely anemia of chronic inflammation/disease. May require referral to Hematology Instructed on ROM exercises. - positive Spurling sign w/ left rotation Instructed on heat/ice and Tylenol Continue Baclofen, Gabapentin and Tramadol without interruption - reduced Gabapentin to 300mg bid and 600mg q HS I have instructed this patient to avoid bending, twisting or lifting. I have also instructed on use of intermittent heat and ice as needed. They may schedule a massage or gentle manipulation. I instructed them on the safe use of Tylenol, Lidocaine and stretching exercises. I informed them of alternative modes of treatment for severe pain, which may include referral to physical therapy or pain management. Suffered injury from fall in home. XR reveal intact stable prosthesis w/o fracture Completed evaluation w/ Orthopedics - instructed to use Voltaren Gel for associated bursitis - instructed to continue therapy f/u Orthopedics This patient requires opiate use on a daily basis to control pain. This patient does not exhibit drug-seeking or aberrant behavior. This patient is able to continue with ADL, with an adequate quality of life, that they would not be able to achieve without the prescription pain medication. There has been no surgical treatment recommended for this condition. Use of non-opiate treatment should be continued, such as nonstrenuous and aquatic exercises. This patient has a pain management contract and they have been counseled on safe storage of the medication. They have been counseled on the risks of concomitant use with alcohol or sedating meds. PDMP is being followed and this patient's OARRS report is being monitored every 90 days. Fall precautions reviewed. 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 Future Tests Future scheduled test information is unavailable Pending Tests Test Name Ordered Date Scheduled Date Comprehensive Metabolic Panel September 04, 2024 10:5 7am XR chest 2V* September 04, 2024 10:59am Future Visits Future appointment information is unavailable Referrals to Other Providers Referral information is unavailable Future Procedures Procedure Name Ordered Date Scheduled Date Vitamin B12 September 04, 2024 10:58am Ferritin September 04, 2024 10:58am Folate September 04, 2024 10:58am Future Medications Future medication information is unavailable Patient Instructions Patient instructions are unavailable
--- NOTE | 2024-10-13 09:38 | MR_ITS ---
[facility] [place] [id number] Patient Name: JOHN ENGLE MRN: [facility]:[id number] date: 1950 Sex: F Assigned Patient Location: MRI Current Patient Location: MRI Accession/Order Number: [id number] Exam Date: 10/13/2024 12:27 Report Date: 10/13/2024 12:30 At the request of: SYLVESTER JACOB DO Procedure: MR head/brain wo con EXAMINATION: MRI OF THE BRAIN WITHOUT CONTRAST CLINICAL HISTORY: Weakness Of Right Hand, Unsteady Gait COMPARISON: None TECHNIQUE: Multiecho, multiplanar imaging of the brain was performed without enhancement. FINDINGS: No evidence for restricted diffusion is an diffusion-weighted imaging. No evidence of blood products on T2 Star imaging. Cortical atrophy with moderate chronic microvascular ischemic changes. Posterior fossa appears unremarkable. Intraorbital contents appear unremarkable. No significant paranasal sinus disease. Midline structures appear unremarkable. MR/MR head/brain wo con IMPRESSION: NO ACUTE INTRACRANIAL PROCESS. CORTICAL ATROPHY WITH MODERATE CHRONIC MICROVASCULAR ISCHEMIC CHANGES. Impression dictated by: Saman Vo Jr., D.O. 10/13/2024 12:30 PM Dictation Location: [place] [address] Electronically authenticated by: [id number] Y Date: 10/13/2024 12:30
--- OUTSIDE RECORDS SUMMARY | 2024-10-13 09:38 | XMS_ITS | Encounter Summary ---
Author Organization [facility] Address [address] [place] [address] Phone Care Team Providers Care Dog Sitter Name Role Phone Mervin Chanel Primary Care Provider Encounter Details Date Type Department Care Team (Late st Contact Info) Description 04/07/2024 Scanned Document [facility] [address] [place] [id number] Scanning, Generic Provider Social History Tobacco Use Types Packs/Day Years Used Date Smoking Tobacco: Never Smokeless Tobacco: Never Alcohol Use Standard Drinks/Week Comments Yes 0 (1 standard drink = 0.6 oz pur e alcohol) rarely Comments No Sex and Gender Information Value Date Recorded Sex Assigned at Female 03/02/2023 2:42 PM EDT Legal Sex Female 2:47 PM EST Gender Identity Female 03/02/2023 2:42 PM EDT Sexual Orientation Not on file documented as of this encounter Plan of Treatment Upcoming Encounters Date Type Department Care Team (Late st Contact Info) Description 12/21/2024 11:00 AM EDT Office Visit [facility] [address] [place] [address] Bryce Cheung MD [address] [place] [address] documented as of this encounter Procedures Procedure Name Priority Date/Time Associated Diagnosis Comments OUTSIDE IMAGING SCAN 04/07/2024 documented in this encounter Results * OUTSIDE IMAGING SCAN (04/07/2024) Anatomical Region Laterality Modality Other Narrative 04/07/2024 Ordered by an unspecified provider. us Generic Provider Scanning OUTSIDE SCAN Final Result documented in this encounter Visit Diagnoses Not on filedocumented in this encounter Additional Health Concerns Assessment Noted Time A fall risk assessment has been complete d for the patient 07/15/2023 10:40 AM EDT documented as of this encounter Care Teams Dog Sitter Relationship Specialty Start Date End Date Mervin Chanel DO [address] [place] [address] PCP - General Internal Medicine 01/05/24 documented as of this encounter
--- OUTSIDE RECORDS SUMMARY | 2024-10-13 09:38 | XMS_ITS | Encounter Summary ---
Author Organization [facility] Address [address] [place] [address] Phone Care Team Providers Care Performance Analyst Name Role Phone Mervin Chanel Primary Care Provider [phone] Encounter Details Date Type Department Care Team (Late st Contact Info) Description 03/31/2024 Scanned Document [facility] [address] [place] [id number] Scanning, Generic Provider Social History Tobacco Use [...] Description 12/21/2024 11:00 AM EDT Office Visit [facility] [address] [place] [address] Bryce Cheung MD [address] [place] [address] documented as of this encounter Procedures Procedure Name Priority Date/Time Associated Diagnosis Comments OUTSIDE LAB SCAN 03/31/2024 documented in this encounter Results * OUTSIDE LAB SCAN (03/31/2024) Narrative 03/31/2024 Ordered by an unspecified provider. us Generic Provider Scanning OUTSIDE SCAN Final Result documented in this encounter Visit Diagnoses Not on filedocumented in this encounter Additional Health Concerns Assessment Noted Time A fall risk assessment has been complete d for the patient 07/15/2023 10:40 AM EDT documented as of this encounter Care Teams Performance Analyst Relationship Specialty Start Date End Date Mervin Chanel DO [address] [place] [address] PCP - General Internal Medicine 01/05/24 documented as of this encounter
--- OUTSIDE RECORDS SUMMARY | 2024-10-13 09:38 | XMS_ITS | Encounter Summary ---
Author Organization [facility] Address [address] [place] [address] Phone Care Team Providers Care Order Entry Technician Name Role Phone Mervin Chanel DO Primary Care Provider Encounter Details Date Type Department Care Team (Late st Contact Info) Description 04/17/2024 Scanned Document [facility] [address] [place] [phone] Scanning, Generic Provider Social History Tobacco Use [...] Description 12/21/2024 11:00 AM EDT Office Visit [facility] [address] [place] [address] Bryce Cheung MD [address] [place] [address] documented as of this encounter Visit Diagnoses Not on filedocumented in this encounter Additional Health Concerns Assessment Noted Time A fall risk assessment has been complete d for the patient 07/15/2023 10:40 AM EDT documented as of this encounter Care Teams Order Entry Technician Relationship Specialty Start Date End Date Mervin Chanel DO [address] [place] [address] PCP - General Internal Medicine 01/05/24 documented as of this encounter
--- OUTSIDE RECORDS SUMMARY | 2024-10-13 09:38 | XMS_ITS | Encounter Summary ---
Author Organization [facility] Address [address] [place] [address] Phone Care Team Providers Care Business Loan Processor Name Role Phone Mervin Chanel DO Primary Care Provider [phone] Encounter Details Date Type Department Care Team (Late st Contact Info) Description 04/09/2024 Scanned Document [facility] [address] [place] [phone] Scanning, Generic Provider Social History Tobacco Use [...] Description 12/21/2024 11:00 AM EDT Office Visit [facility] [address] [place] [address] Bryce Cheung MD [address] [place] [address] documented as of this encounter Visit Diagnoses Not on filedocumented in this encounter Additional Health Concerns Assessment Noted Time A fall risk assessment has been complete d for the patient 07/15/2023 10:40 AM EDT documented as of this encounter Care Teams Business Loan Processor Relationship Specialty Start Date End Date Mervin Chanel DO [address] [place] [place] [address] PCP - General Internal Medicine 01/05/24 documented as of this encounter
--- OUTSIDE RECORDS SUMMARY | 2024-10-13 09:39 | XMS_ITS | Encounter Summary ---
Author Organization [facility] Address [address] [place] [address] Phone Care Team Providers Care Client Care Representative Name Role Phone Mervin Chanel DO Primary Care Provider [phone] Mervin Chanel DO Primary Care Provider [phone] Encounter Details Date Type Department Care Team (Late st Contact Info) Description 01/25/2023 Scanned Document [facility] [address] [place] [address] Conversion, Onbase Social History Tobacco Use Types Packs/Day Years Used Date Smoking Tobacco: Never Assessed Comments Unknown Sex and Gender Information Value Date Recorded Sex Assigned at Female 03/02/2023 2:42 PM EDT Legal Sex Female 2:47 PM EST Gender Identity Female 03/02/2023 2:42 PM EDT Sexual Orientation Not on file documented as of this encounter Plan of Treatment Upcoming Encounters Date Type Department Care Team (Late st Contact Info) Description 12/21/2024 11:00 AM EDT Office Visit [facility] [address] [facility] [address] [place] [address] Bryce Cheung MD [address] [place] [address] documented as of this encounter Procedures Procedure Name Priority Date/Time Associated Diagnosis Comments ECHOCARDIOGRAM 01/25/2023 documented in this encounter Results * ECHOCARDIOGRAM (01/25/2023) Narrative 01/25/2023 Ordered by an unspecified provider. us Onbase Conversion CV ECHO PROCEDURES Final Resul t documented in this encounter Visit Diagnoses Not on filedocumented in this encounter Care Teams Client Care Representative Relationship Specialty Start Date End Date Mervin Chanel DO PCP - General 02/22/19 01/04/24 Mervin Chanel DO [facility] [place] [address] PCP - General Internal Medicine 01/05/24 documented as of this encounter
--- OUTSIDE RECORDS SUMMARY | 2024-10-13 09:39 | XMS_ITS | Patient Health Record ---
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) Referral Organization [facility] (PODIATRY) Referring Provider First Name Bradford Referring Provider Last Name Analilia Referring Provider Speciality Podiatry Referred Provider Specialty Pharmacist Referral Priority Routine Medications Medication SIG (Take, Route, Frequency, Duration) Notes Start Date End Date Status Gabapentin 300 MG 1 capsule Orally Once a day Active Aspirin 81 81 MG 1 tablet Orally Once a day Active Baclofen 20 MG 1 tablet Administer without regards to meals as needed Orally Twice a day Active traMADol HCl 50 MG 1 tablet as needed O rally Once a day Active Carvedilol 6.25 MG 1 tablet with food O rally Twice a day Active Enalapril Maleate 2.5 MG 1 tablet Orally Once a day Active Omeprazole 40 MG 1 capsule 30 minutes before morning meal Orally Once a day Active traZODone HCl 50 MG 1 tablet at bedtime as needed Orally Once a day Active Social History Tobacco Use: Social History Observation Description Date Details (start date - stop date) Never Smoker NA - NA Tobacco Control (Standard) Question Answer Notes Tobacco use: Nonsmoker Problems Problem Type SNOMED Code ICD Code Onset Dates Problem Status W/U Status Risk Notes Problem [id number] 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 (PODIATRY) [address] [place] [address] [place] [address] 01/04/2024 Bradford [facility] Drug-induced polyneuropathy G62.0 and Primary osteoarthritis, left [...] foot (ICD-10 - M19.072) Plan Of Treatment No Information Insurance Providers Payer Name Payer Address Payer Phone Subscriber Number Group Number Insured Name Patient Relationship to Insured Coverage Start Date Coverage End Date MEDICARE [employer] [address] [address] [place], [place] [id number] [phone] [id number] Renuka Owen Self - patient is the insured [employer] [address] [address] [place] [address] [id number] Rneuka Owen Self - patient is the insured Medical (General) History Medical History History ICD Code arthritis hx of breast cancer heart disease hypertension Surgical History Surgery Date(Month/Year) cholecystectomy back surgeries x3 mascetomy reconstruction presacral mass knee replacement x2 rotator cuff
--- OUTSIDE RECORDS SUMMARY | 2024-10-13 09:39 | XMS_ITS | Encounter Summary ---
Author Organization [facility] Address [address] [place] [address] Care Team Providers Care Health It Specialist Name Role Phone Mervin Chanel DO Primary Care Provider [phone] Encounter Details Date Type Department Care Team (Late Contact Info) Description 10/05/2022 Abstract [facility] [address] [place] [address] Wilfrid Olson, DPM [address] [place] [address] Social History Tobacco Use Types Packs/Day Years Used Date Smoking Tobacco: Never Smokeless Tobacco: Never Tobacco Cessation:Counseling Given: Not Answered Alcohol Use Standard Drinks/Week Comments Not Currently 7 (1 standard drink = 0.6 oz pure alcohol) caffeine intake: 2-3 cups per day of diet coke Comments Unknown Sex and Gender Information Value Date Recorded Sex Assigned at Not on file Legal Sex Female 7:03 PM EDT Gender Identity Not on file Sexual Orientation Not on file documented as of this encounter Plan of Treatment Upcoming Encounters Date Type Department Care Team (Late Contact Info) Description 10/23/2024 11:00 AM EDT Office Visit [facility] [address] [facility] [address] [place] [address] Bran Dejesus MD [address] [place] [address] [place] [address] [id number] 11/28/2024 10:45 AM EDT Office Visit [facility] [address] [facility] [address] [place] [address] Nba Malhotra, DO [address] [place] [address] 12/19/2024 9:45 AM EDT Procedure Visit [facility] [address] [place] [address] Wilfrid Olson, DPDerrek [address] [place] [address] documented as of this encounter Visit Diagnoses Not on filedocumented in this encounter Care Teams Health It Specialist Relationship Specialty Start Date End Date Mervin Chanel DO [address] [place] [address] PCP - General Internal Medicine 09/30/22 documented as of this encounter
--- OUTSIDE RECORDS SUMMARY | 2024-10-13 09:39 | XMS_ITS | Clinical Summary ---
Author Organization [facility] Address [address] [place] [address] Care Team Providers Care Soft Drink Powder Mixer Name Role Phone Unavailable Primary Care Provider Unavailabl e Allergies Active Allergy Reactions Criticality Noted Date Comments Atorvastatin 05/25/2017 Penicillins 05/25/2017 Medications traMADol (ULTRAM) 50 MG tablet Take 50 mg by mouth as needed for Pain. Active Naproxen Sodium (ALEVE PO) Take by mouth as needed Active Active Problems No known active problems Social History Tobacco Use Types Packs/Day Years Used Date Smoking Tobacco: Never Assessed Smokeless Tobacco: Never Comments Unknown Sex and Gender Information Value Date Recorded Sex Assigned at Not on file Legal Sex Female 2:11 PM EST Gender Identity Not on file Sexual Orientation Not on file Last Filed Vital Signs Vital Sign Reading Time Taken Comments Blood Pressure - - Pulse - - Temperature 35.9 C (96.6 F) 05/25/2017 3:22 PM EST Respiratory Rate - - Oxygen Saturation - - Inhaled Oxygen Concentration - - Weight 81.6 kg (180 lb) 05/25/2017 3:22 PM EST Height 160 cm (5' 3 ) 05/25/2017 3:22 PM EST Body Mass Index 31.89 05/25/2017 3:22 PM EST Plan of Treatment Not on file Insurance MEDICARE
--- OUTSIDE RECORDS SUMMARY | 2024-10-13 09:39 | XMS_ITS | Encounter Summary ---
Author Organization [facility] Address [address] [place] [address] Phone Care Team Providers Care Tank Car Repairer Name Role Phone Mervin Chanel DO Primary Care Provider [phone] Mervin Chanel DO Primary Care Provider [phone] Encounter Details Date Type Department Care Team (Late st Contact Info) Description 04/11/2022 Orders Only [facility] [address] [place] [address] Conversion, Onbase Social History Tobacco Use Types [...] Description 12/21/2024 11:00 AM EDT Office Visit [facility] [address] [facility] [address] [place] [address] Bryce Cheung MD [address] [facility] [address], [address] [place] [address] Scheduled Orders Name Type Priority Associated Diagnoses Orde r Schedule OUTSIDE LAB SCAN Lab Ordered: 04/11/2022 OUTSIDE LAB SCAN Lab Ordered: 04/11/2022 documented as of this encounter Visit Diagnoses Not on filedocumented in this encounter Care Teams Tank Car Repairer Relationship Specialty Start Date End Date Mervin Chanel DO PCP - General 02/22/19 01/04/24 Mervin Chanel DO [address] [place] [address] PCP - General Internal Medicine 01/05/24 documented as of this encounter
--- OUTSIDE RECORDS SUMMARY | 2024-10-13 09:39 | XMS_ITS | Encounter Summary ---
Author Organization [facility] Address [address] [place] [address] Care Team Providers Care Flight Readiness Technician Name Role Phone Rhona Delacruz MD Primary Care Provider [phone] Mervin Chanel DO Primary Care Provider [phone] Mervin Chanel DO Primary Care Provider [phone] Source Comments In the event this information is protected by the Federal Confidentiality of Alcohol and Drug AbusePatient Records regulations: The Federal rules restrict any use of the information to criminally investigate or prosecute any alcohol or drug abuse patient.[facility] Encounter Details Date Type Department Care Team (Late st Contact Info) Description 06/26/2011 [facility] [address] [place] [address] [place] [address] [place] [address] Social History Tobacco Use Types Packs/Day Years Used Date Smoking Tobacco: Never Alcohol Use Standard Drinks/Week Comments Yes 0 (1 standard drink = 0.6 oz pur e alcohol) social Comments No Sex and Gender Information Value Date Recorded Sex Assigned at Not on file Legal Sex Female 9:57 AM EST Gender Identity Not on file Sexual Orientation Not on file documented as of this encounter Plan of Treatment Not on file documented as of this encounter Visit Diagnoses Not on filedocumented in this encounter Care Teams Flight Readiness Technician Relationship Specialty Start Date End Date Rhona Delacruz MD PCP - General Family Medicine 03/02/11 03/07/13 Mervin Chanel DO [address] [place] [address] PCP - General 03/08/13 06/03/20 Mervin Chanel DO [address] [place] [address] PCP - General Internal Medicine 06/04/20 documented as of this encounter
--- OUTSIDE RECORDS SUMMARY | 2024-10-13 09:39 | XMS_ITS | Encounter Summary ---
Author Organization [facility] Address [address] [place] [address] Phone Care Team Providers Care Railway Head Tender Name Role Phone Mervin Chanel DO Primary Care Provider [phone] Mervin Chanel DO Primary Care Provider [phone] Encounter Details Date Type Department Care Team (Late st Contact Info) Description 09/24/2021 Orders Only [facility] [address] [place] [address] Conversion, Onbase Social History Tobacco Use Types [...] Description 12/21/2024 11:00 AM EDT Office Visit [place] [address] [facility] [address] [place] [address] Bryce Cheung MD [address] [facility] [address], [address] [place] [address] Scheduled Orders Name Type Priority Associated Diagnoses Orde r Schedule OUTSIDE LAB SCAN Lab Ordered: 09/24/2021 documented as of this encounter Visit Diagnoses Not on filedocumented in this encounter Care Teams Railway Head Tender Relationship Specialty Start Date End Date Mervin Chanel DO PCP - General 02/22/19 01/04/24 Mervin Chanel DO [address] [facility] [place] [address] PCP - General Internal Medicine 01/05/24 documented as of this encounter
--- OUTSIDE RECORDS SUMMARY | 2024-10-13 09:39 | XMS_ITS | Encounter Summary ---
Author Organization [facility] Address [address] [place] [address] Phone Care Team Providers Care Power Driven Brush Maker Name Role Phone Mervin Chanel DO Primary Care Provider Mervin Chanel DO Primary Care Provider [phone] Encounter Details Date Type Department Care Team (Late st Contact Info) Description 04/08/2021 Orders Only [facility] [address] [place] [address] Conversion, Onbase Social History Tobacco Use Types [...] Description 12/21/2024 11:00 AM EDT Office Visit [place] [address] [facility] [address] [place] [address] Bryce Cheung MD [address] [facility] [address], [address] [place] [address] Scheduled Orders Name Type Priority Associated Diagnoses Orde r Schedule OUTSIDE LAB SCAN Lab Ordered: 04/08/2021 documented as of this encounter Visit Diagnoses Not on filedocumented in this encounter Care Teams Power Driven Brush Maker Relationship Specialty Start Date End Date Mervin Chanel DO PCP - General 02/22/19 01/04/24 Mervin Chanel DO [address] [facility] [place] [address] PCP - General Internal Medicine 01/05/24 documented as of this encounter
--- OUTSIDE RECORDS SUMMARY | 2024-10-13 09:39 | XMS_ITS | Clinical Summary ---
Author Organization [facility] Address [address] [place] [address] Care Team Providers Care Inventory Control Manager Name Role Phone Mervin Chanel DO Primary Care Provider [phone] Allergies Active Allergy Reactions Criticality Noted Date Comments Atorvastatin Hives,Rash Low 12/28/2022 Penicillins 12/28/2022 Other Reaction(s): Unknown Medications traMADol (Ultram) 50 MG tablet Take 50 mg by mouth Active baclofen (Lioresal) 20 MG tablet Take 20 mg by mouth in the morning and 20 mg in the evening and 20 mg before bedtime. Active gabapentin (Neurontin) 300 MG capsule Take 300 mg by mouth in the morning and 300 mg in the evening and 300 mg before bedtime. Active calcium carbonate (Calcium 600) 600 MG tablet Take 600 mg by mouth in the morning and 600 mg in the evening. Take with meals. Active cholecalciferol (Vitamin D-3) 25 MCG (1000 UT) capsule Take 1,000 Units by mouth Daily Active fluticasone (Cutivate) 0.05 % cream Apply topically in the morning and before bedtime. Active fluticasone (Flonase) 50 MCG/ACT nasal spray Administer 1 spray into each nostril Daily Shake gently. Before first use, prime pump. After use, clean tip and replace cap. Active cetirizine (ZyrTEC) 10 MG tablet Take 10 mg by mouth Active torsemide (Demadex) 10 MG tablet Take 10 mg by mouth Daily Active montelukast (Singulair) 10 MG tabletIndicatio ns:Chronic frontal sinusitis Take 1 tablet (10 mg) by mouth at bedtime 90 tablet 3 4 03/28/20 25 Active traZODone (Desyrel) 50 MG tablet 4 Active omeprazole (PriLOSEC) [address] capsule 5 Active lisinopril 5 MG tablet Take by mouth Daily Active metoprolol succinate XL (Toprol-XL) 25 MG 24 hr tablet Take by mouth Do not crush or chew. Active predniSONE (Deltasone) 10 MG tabletIndicatio ns:Osteoarthrit is of midtarsal joint of left foot,Capsulitis of left foot,Pain in joint of left foot,Pain and swelling of toe of left foot,Difficulty walking 1 tablet twice daily x 7 days; followed by 1 tablet daily as directed until complete 21 tablet 5 Active Active Problems Problem Noted Date Diagnosed Date Keratoconjunctivitis sicca o f both eyes not specified as Sjogren's 06/09/2023 Primary open angle glaucoma (POAG) of both eyes, mild stage 02/26/2023 PCO (posterior capsular opacification), bilatera l 02/26/2023 Resolved Problems Problem Noted Date Diagnosed Date Resolved Date Dry eyes 02/26/2023 10/08/2023 Encounters Date Type Department Care Team Description 09/28/2024 11:45 AM EDT Ancillary Procedure [facility] [address] [place] [address] 09/28/2024 10:15 AM EDT Office Visit [facility] [address] [place] [address] Wilfrid Olson DPM Osteoarthritis of midtarsal joint of left foot (Primary Dx); Capsulitis of left foot; Pain in joint of left foot; Pain and swelling of toe of left foot; Difficulty walking 09/28/2024 Bamboo flowsheet [facility] [address] [place] [address] Wilfrid Olson DPM 09/28/2024 Travel 09/26/2024 Travel 09/06/2024 2:45 PM EDT Procedure Visit [facility] [address] [place] [address] Wilfrid Olson DPM Dermatophytosis of nail (Primary Dx); Dystrophic nail; Pain around toenail, right foot; Pain around toenail, left foot 09/06/2024 Bamboo flowsheet [facility] [address] [place] [address] Wilfrid Olson DPM 09/06/2024 Travel 09/05/2024 Travel 08/21/2024 Travel from Last 3 Months Immunizations Immunization Administration Dates Next Due Influenza, High Dose Seasona l, Preservative Free 01/29/2020,02/17/2018,02/02/2017 Influenza, High-dose Seasona l, Quadrivalent, Preservative Free 01/28/2021,01/29/2020 Influenza, Seasonal, Quadriv alent, Adjuvanted 01/14/2022 Influenza, Unspecified 06/27/2011 Influenza, injectable, quadrivalent 04/02/2016 Influenza, injectable, quadr ivalent, preservative free 01/14/2022,02/01/2020,02/17/2019,06/09,02/16/2017,02/10/2017,05/05/2016 ,04/02/2016 Influenza, seasonal, injectable 01/01/2022 Moderna SARS-CoV-2 Vaccination 05/10/2022 Pneumococcal Conjugate PCV 13 05/11/2022, 017 Pneumococcal Polysaccharide PPSV23 07/20,02/08/2017,05/03/2015,05/03,01/31/2013,06/27/2011 SARS-COV-2 (COVID-19) vaccin e, mRNA, spike protein, LNP, bivalent, preservative free, 30 mcg/0.3 mL dose, nicky-sucrose formulation 02/25/2022 Zoster, Recombinant 05/27/2020,02/28/2020 Zoster, live 01/31/2014 Family History Medical History Relation Name Comments Leukemia Brother Cancer Father Gadiel Pink Testicular cancer Father Gadiel Pink Breast cancer Mother Alejandra Redinger Cancer Mother Alejandra Wu Glaucoma Mother Alejandra Wu Hearing loss Mother Alejandra Wu Relation Name Status Comments Brother Father Gadiel Pink Mother Alejandra Wu Alive Social History Tobacco Use Types Packs/Day Years Used Date Smoking Tobacco: Never Smokeless Tobacco: Never Tobacco Cessation:Counseling Given: Not Answered Alcohol Use Standard Drinks/Week Comments Yes 1 (1 standard drink = 0.6 oz pure alcohol) caffeine intake: 2-3 cups per day of diet coke Comments Unknown Sex and Gender Information Value Date Recorded Sex Assigned at Not on file Legal Sex Female 7:03 PM EDT Gender Identity Not on file Sexual Orientation Not on file Last Filed Vital Signs Vital Sign Reading Time Taken Comments Blood Pressure 97/59 03/08/2024 9:09 AM EST Pulse - - Temperature - - Respiratory Rate - - Oxygen Saturation - - Inhaled Oxygen Concentration - - Weight 71.7 kg (158 lb) 09/28/2024 10:08 AM EDT Height 157.5 cm (5' 2 ) 09/28/2024 10:08 AM EDT Body Mass Index 28.9 09/28/2024 10:08 AM EDT Plan of Treatment Upcoming Encounters Date Type Department Care Team (Late st Contact Info) Description 10/23/2024 11:00 AM EDT Office Visit [facility] [address] [facility] [address] [place] [address] Bran Dejesus MD [address] [facility] [address] [address] 11/28/2024 10:45 AM EDT Office Visit [facility] [address] [place] [address] Nba Malhotra DO [address] [place] [address] 12/19/2024 9:45 AM EDT Procedure Visit [facility] [address] [place] [address] Wilfrid Olson DPDerrek [address] [place] [address] Health Maintenance Due Date Last Done Comments CT Colonography 1949 Colonoscopy 1949 Colorectal Cancer Screening 1949 FIT-DNA 1949 FIT 1949 FOBT 1949 Sigmoidoscopy 1949 Mammogram 1989 Pneumococcal Vaccine: 65+ Years Completed 05/11/2022, 07/20/2020, 02/08/2017, Additional history exists Influenza Vaccine Completed 02/25/2024, , 01/14/2022, Additional history exists Procedures Procedure Name Priority Date/Time Associated Diagnosis Comments XR FOOT 3+ VIEWS LEFT Routine 09/28/2024 11:43 AM EDT Osteoarthritis of midtarsal joint of left foot Capsulitis of left foot Pain in joint of left foot Pain and swelling of toe of left foot Difficulty walking from Last 3 Months Results * XR foot 3+ views left (09/28/2024 11:43 AM EDT) Anatomical Region Laterality Modality Lower Extremities, Foot Left Radiogra phic Imaging Narrative 09/28/2024 11:44 AM EDT Imaging Result: 3 views left foot: Weight-bearing: DP, oblique, lateral: 09/28/2024: Unremarkable for acute osseous or joint pathology. Unremarkable for fracture or stress fracture changes. 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 Arthritic changes of the navicular-cuneiform joint as well. 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 Wilfrid Olson DPM IMG XR PROCEDURES Final Resu lt from Last [address] [place] [address] [place] [address] [employer] Care Teams Inventory Control Manager Relationship Specialty Start Date End Date Mervin Chanel DO [address] [place] [address] PCP - General Internal Medicine 09/30/22
--- OUTSIDE RECORDS SUMMARY | 2024-10-13 09:39 | XMS_ITS | Clinical Summary ---
Author Organization [facility] Address [address] [place] [address] Phone Care Team Providers Care Homicide Squad Captain Name Role Phone Mervin Chanel Galo FENG Primary Care Provider [phone] Allergies Active Allergy Reactions Criticality Noted Date Comments Atorvastatin Hives,Rash Low 02/28/2023 Penicillins Hives Medium 02/28/2023 Wyjypox-Tqm-Vkh Reductase Inhibitors Hives Medium 02/28/2023 Medications baclofen (Lioresal) 20 mg tablet Take 1 tablet (20 mg) by mouth once daily as needed. Active fluticasone (Flonase) 50 mcg/actuation nasal spray As directed Active loratadine (Claritin) 10 mg tablet Take 1 tablet (10 mg) by mouth once daily. Active omeprazole (PriLOSEC) [address] capsule Take 1 capsule (20 mg) by mouth once daily in the morning. Take before meals. Active traMADol (Ultram) 50 mg tablet Take 1 tablet (50 mg) by mouth 2 times a day as needed. Active aspirin 81 mg EC tablet Take 1 tablet (81 mg) by mouth once daily. Active metoprolol succinate XL (Toprol-XL) 25 mg 24 hr tablet Take 1 tablet (25 mg) by mouth once daily. Do not crush or chew. Active lisinopril 2.5 mg tablet Take 1 tablet (2.5 mg) by mouth once daily. Active gabapentin (Neurontin) 300 mg capsule Take 1 capsule (300 mg) by mouth 3 times a day. 300mg BID, and 600mg at bedtime Active torsemide (Demadex) 20 mg tablet Take 1 tablet (20 mg) by mouth every other day. Active Active Problems Problem Noted Date Diagnosed Date Never smoked tobacco 07/15/2023 Left ventricular systolic dysfunction 03/18/2023 Edema 03/02/2023 Cancer (Multi) 02/28/2023 Essential hypertension 02/28/2023 LBBB (left bundle branch block) 02/28/2023 Mitral regurgitation 02/28/2023 Chest pain 02/28/2023 BMI 28.0-28.9,adult 02/28/2023 Encounters Date Type Department Care Team Description 09/13/2024 Telephone [facility] [address] [address] Ana Maria Quinones LPN retaining fluid from Last 3 Months Immunizations Immunization Administration Dates Next Due Flu vaccine (IIV4), preserva tive free *Check age/dose* 02/17/2019 Flu vaccine, quadrivalent, h igh-dose, preservative free, age 65y+ (FLUZONE) 01/28/2021 Flu vaccine, trivalent, pres ervative free, HIGH-DOSE, age 65y+ (Fluzone) 01/29/2020,02/17/2018,02/02/2017,05/03,05/03/2009 Influenza, Seasonal, Quadriv alent, Adjuvanted 01/22/2023,01/14/2022 Influenza, Unspecified 01/01/2017,2015,01/31/2015,01/31,05/03/2006 Influenza, injectable, quadrivalent 04/02/2016 Moderna SARS-CoV-2 Vaccination 05/10/2022 Pfizer COVID-19 vaccine, 12 years and older, (30mcg/0.3mL) (Comirnaty) 01/22/2023 Pfizer COVID-19 vaccine, biv alent, age 12 years and older (30 mcg/0.3 mL) 02/25/2022 Pfizer Vargas Cap SARS-CoV-2 08/28/2021 Pneumococcal conjugate vacci ne, 13-valent (PREVNAR 13) 05/11/2022,12/30/2016 Pneumococcal polysaccharide vaccine, 23-valent, age 2 years and older (PNEUMOVAX 23) 07/20/2020,02/08/2017,05/03/2015,05/03,01/31/2013 Zoster vaccine, recombinant, adult (SHINGRIX) 05/27/2020,02/28/2020 Family History Medical History Relation Name Comments No Known Problems Father No Known Problems Mother Relation Name Status Comments Father Mother Social History Tobacco Use Types Packs/Day Years Used Date Smoking Tobacco: Never Smokeless Tobacco: Never Tobacco Cessation:Counseling Given: Not Answered Alcohol Use Standard Drinks/Week Comments Yes 0 (1 standard drink = 0.6 oz pur e alcohol) rarely Comments No Sex and Gender Information Value Date Recorded Sex Assigned at Female 03/02/2023 2:42 PM EDT Legal Sex Female 2:47 PM EST Gender Identity Female 03/02/2023 2:42 PM EDT Sexual Orientation Not on file Last Filed Vital Signs Vital Sign Reading Time Taken Comments Blood Pressure 98/64 05/04/2024 11:16 AM EST Pulse 76 05/04/2024 11:16 AM EST Temperature - - Respiratory Rate - - Oxygen Saturation - - Inhaled Oxygen Concentration - - Weight 69.4 kg (153 lb) 05/04/2024 11:16 AM EST Height 154.9 cm (5' 1 ) 05/04/2024 11:16 AM EST Body Mass Index 28.91 05/04/2024 11:16 AM EST Plan of Treatment Upcoming Encounters Date Type Department Care Team (Late st Contact Info) Description 12/21/2024 11:00 AM EDT Office Visit [facility] [address] [facility] [address] [place] [address] Harjeet Cheung MD 703 [facility] [address] [place] [address] Health Maintenance Due Date Last Done Comments CT Colonography 1950 Colonoscopy 1950 Colorectal Cancer Screening 1950 FIT-DNA (Cologuard) 1950 FIT 1950 Lipid Panel 1950 Sigmoidoscopy 1950 Diabetes Screening 12/07/1967 Hepatitis C Screening 12/07/1967 CKD: Urine Protein Screening 1968 Mammogram 1989 Creatinine Level 07/22/2008 07/23/2007 Potassium Level 07/22/2008 07/23/2007 RSV High Risk: (Elderly (60+) or Population) (1 - Risk 60-74 years 1-dose series) 2009 DTaP/Tdap/Td Vaccines (1 - Tdap) 02/22/2014 02/21/2014 COVID-19 Vaccine ( season) 2024 01/22/2023, 05/10/2022, 02/25/2022, Additional history exists Medicare Annual Wellness Visit (AWV) 01/09/2024 01/07/2023, 01/14/2022, 11/20/2020, Additional history exists Echocardiogram 01/17/2025 01/18/2024, 01/02, 01/25/2023, Additional history exists Bone Density Scan 01/28/2025 01/28/2023, , 11/09/2018 Zoster Vaccines Completed 05/27/2020, 02/01, 01/31/2014 Pneumococcal Vaccine Completed 05/11/2022, 07/20/2020, 02/08/2017, Additional history exists Influenza Vaccine Completed 02/25/2024, , 01/14/2022, Additional history exists HIB Vaccines Aged Out No longer eligi ble based on patient's age to complete this topic HPV Vaccines Aged Out No longer eligi ble based on patient's age to complete this topic Hepatitis A Vaccines Aged Out No long er eligible based on patient's age to complete this topic Hepatitis B Vaccines Aged Out No long er eligible based on patient's age to complete this topic IPV Vaccines Aged Out No longer eligi ble based on patient's age to complete this topic Meningococcal Vaccine Aged Out No nubia alejandro eligible based on patient's age to complete this topic Rotavirus Vaccines Aged Out No longer eligible based on patient's age to complete this topic Procedures Procedure Name Priority Date/Time Associated Diagnosis Comments TRANSTHORACIC ECHO (TTE) COMPLETE Routine 01/18/2024 2:06 PM EDT Mitral valve insufficiency, unspecified etiology from Last 3 Months or Most Recently Relevant to Health Maintenance Results * TRANSTHORACIC ECHO (TTE) COMPLETE (01/18/2024 2:06 PM EDT) AV mn grad 5.0 mmHg SYNGO AV pk benjamin 1.50 m/s SYNGO LV Biplane EF 61 % SYNGO LVOT diam 1.90 cm SYNGO MV E/A ratio 0.82 SYNGO MV avg E/e' ratio 10.50 SYNGO LV EF 50 % SYNGO RVSP 35.7 mmHg SYNGO LVIDd 3.80 cm SYNGO Aortic Valve Area by Continuity of Peak Velocity 1.36 cm2 SYNGO AV pk grad 9.0 mmHg SYNGO Aortic Valve Area by Continuity of VTI 1.49 cm2 SYNGO LV A4C EF 65.3 SYNGO 01/18/2024 1:38 PM EDT Narrative SYNGO - 02/02/2024 4:37 PM EDT [address], [address] [place] [address] TRANSTHORACIC ECHOCARDIOGRAM REPORT Patient Name: RENUKA Rodriguez Physician: [id number] Harjeet Cheung MD, [facility] Study Date: 01/18/2024 Ordering Provider: [id number] HARJEET CHEUNG MRN/PID: [id number] Fellow: Nurse: Date of /Age: 8 1950 / 73 years Human Relations Manager: MARICEL Gender: F Additional Staff: Height: 154.94 cm Admit Date: Weight: 71.22 kg Admission Status: BSA / BMI: 1.70 m2 / 29.67 kg/m2 Department Location: [facility] Blood Pressure: 110 /68 mmHg Study Type: TRANSTHORACIC ECHO (TTE) COMPLETE Diagnosis/ICD: Nonrheumatic mitral (valve) insufficiency-I34.0 Indication: Abnormal EKG-LBBB, HTN, Overweight CPT Codes: Echo Complete w Full Doppler-[id number] Study Detail: The following Echo studies were [...] 0.7 m/s (0.6-0.9m/s) PV Max P.8 mmHg [id number] Harjeet Cheung MD, [facility] Electronically signed on 02/02/2024 at 4:37:36 PM Final Procedure Note Harjeet Cheung MD - 02/02/2024 [facility] [address] [place] [address], [address], [place] [address] TRANSTHORACIC ECHOCARDIOGRAM REPORT Patient Name: RENUKA Dey DILCIA Reading Physician: Maida Cheung MD,[facility] Study Date: 01/18/2024 Ordering Provider: MAIDA CHEUNG MRN/PID: [id number] Fellow: Nurse: Date of /Age: 8 1950 / 73 years Human Relations Manager: MARICEL Gender: F Additional Staff: Height: 154.94 cm Admit Date: Weight: 71.22 kg Admission Status: BSA / BMI: 1.70 m2 / 29.67 kg/m2 Department Location: [facility] Blood Pressure: 110 /68 mmHg Study Type: TRANSTHORACIC ECHO (TTE) COMPLETE Diagnosis/ICD: Nonrheumatic mitral (valve) insufficiency-I34.0 Indication: Abnormal EKG-LBBB, HTN, Overweight CPT Codes: Echo Complete w Full Doppler-[id number] Study Detail: The following Echo studies were performed: 2D, M-Mode,Doppler and color flow. PHYSICIAN INTERPRETATION: Left Ventricle: The left ventricular systolic function is mildlydecreased, with a visually estimated ejection fraction of 50%. The leftventricular cavity size is normal. Spectral Doppler shows a normal patternof left ventricular diastolic filling. There is an elevated mean leftatrial pressure. Septal motion suggests conduction abnormalities. Left Atrium: The left atrium is normal in size. Right Ventricle: The right ventricle is normal in size. There is normalright ventricular global systolic function. Right Atrium: The right atrium is normal in size. Aortic Valve: The aortic valve is trileaflet. The aortic valvedimensionless index is 0.53. There is no evidence of aortic valveregurgitation. The peak instantaneous gradient of the aortic valve is 9.0mmHg. The mean gradient of the aortic valve is 5.0 mmHg. Mitral Valve: The mitral valve is moderately thickened. There is moderatemitral valve regurgitation. Tricuspid Valve: The tricuspid valve is structurally normal. There is mildto moderate tricuspid regurgitation. Estimated RVSP 43 mmHg consistentwith mild pulmonary hypertension. Pulmonic Valve: The pulmonic valve is structurally normal. There is noindication of pulmonic valve regurgitation. Pericardium: No pericardial effusion noted. Aorta: The aortic root is normal. Systemic Veins: The inferior vena cava appears normal in size. In comparison to the previous echocardiogram(s): When compared to studyfrom 01/25/2023, no significant interval changes were seen. CONCLUSIONS: 1. The left ventricular systolic function is mildly decreased, with avisually estimated ejection fraction of 50%. 2. There [...] 0.7 m/s (0.6-0.9m/s) PV Max P.8 mmHg [id number] Harjeet Cheung MD, [facility] Electronically signed on 02/02/2024 at 4:37:36 PM Final us Harjeet Cheung MD CV ECHO PROCEDURES Final Res ult SYNGO from Last 3 Months or Most Recently Relevant to Health Maintenance Insurance MEDICARE [employer] Care Teams Homicide Squad Captain Relationship Specialty Start Date End Date Mervin [place] [address] PCP - General Internal Medicine 01/05/24
--- OUTSIDE RECORDS SUMMARY | 2024-10-13 09:39 | XMS_ITS | Encounter Summary ---
Author Organization [facility] Address [address] [facility] [address] [place] [address] Care Team Providers Care Coil Winder Hand Name Role Phone Mervin Chanel DO Primary Care Provider [phone] Encounter Details Date Type Department Care Team (Late st Contact Info) Description 03/24/2024 Clinisync Result Encounter [facility] Department Unsolicited Deb Robles MD [address] [facility] [address] [place] [address] Social History Tobacco Use Types Packs/Day Years Used Date Smoking Tobacco: Never Smokeless Tobacco: Never Alcohol Use Standard Drinks/Week Comments Yes 1 [...] Office Visit [facility] [address] [facility] [address] [place] [address] Bran Dejesus MD [address] [facility] [address] [id number] 11/28/2024 10:45 AM EDT Office Visit [facility] [address] [place] [phone] Nba Malhotra DO [address] [place] [address] 12/19/2024 9:45 AM EDT Procedure Visit [facility] [address] [place] [phone] Wilfrid Olson, DPDerrek [address] [place], [place] [phone] documented as of this encounter Procedures Procedure Name Priority Date/Time Associated Diagnosis Comments XR PARANASAL SINUSES 3+ VIEWS 03/24/2024 3:50 PM EST documented in this encounter Results * XR paranasal sinuses 3+ views (03/24/2024 3:50 PM EST) Anatomical Region Laterality Modality Head, Neck Radiographic Brenda ging 03/24/2024 3:50 PM EST Narrative 03/24/2024 3:52 PM EST [address] [address] XRay Report Signed Patient: RENUKA ENGLE MR#: [id number] : 1950 Acct:[id number] Age/Sex: 73 / F ADM Date: 03/23/24 Loc: [facility] Attending Dr: Deb Robles M.D. Ordering Physician: Deb Robles M.D. Date of Service: 03/23/24 Procedure(s): XR sinus min 3V Accession Number(s): [id number] cc: Mervin Chanel D.O.; Deb Robles M.D. [address] [id number] Patient Name: RENUKA ENGLE MRN: [id number] date: 1950 Sex: F Assigned Patient Location: [facility] Current Patient Location: Accession/Order Number: [id number] Exam Date: 03/23/2024 14:19 Report Date: 03/24/2024 15:50 At the request of: DEB ROBLES Procedure: XR sinus min 3V EXAMINATION: XR sinus min 3V HISTORY: Chronic Sinusitis COMPARISON: No relevant comparison available. FINDINGS: MAXILLARY: Mild mucosal thickening bilaterally. ETHMOID: No appreciable mucosal thickening or fluid level. FRONTAL: Suspect mild mucosal thickening. SPHENOID: No appreciable mucosal thickening or fluid level. OTHER: Negative. XR/XR sinus min 3V IMPRESSION: 1. No fluid levels to suggest acute sinusitis. 2. suspect mild chronic sinusitis of the frontal and maxillary sinuses. Electronically authenticated by: WILFRID ROSALES Date: 03/24/2024 15:50 Dictated By: Wilfrid Rosales M.D. Signed By: 03/24/242 DD/ 155 TD/TT: Staffing Executive: Procedure Note Radiology, Radiologist, - 03/24/2024 [place] [address] XRay Report Signed Patient: RENUKA ENGLE AMR#: [id number] : 1950Acct:[id number] Age/Sex: 73 / FADM Date: 03/23/24 Loc: RAD Attending Dr: Deb Robles M.D. Ordering Physician: Deb Robles M.D. Date of Service: 03/23/24 Procedure(s): XR sinus min 3V Accession Number(s): [id number] cc: Mervin Chanel D.O.; Deb Robles M.D. [address] [place] [address] Patient Name: RENUKA ENGLE MRN: [id number] date: 1950 Sex: F Assigned Patient Location: [facility] Current Patient Location: Accession/Order Number: [id number] Exam Date: 03/23/2024 14:19 Report Date: 03/24/2024 15:50 At the request of: DEB ROBLES Procedure: XR sinus min 3V EXAMINATION: XR sinus min 3V HISTORY: Chronic Sinusitis COMPARISON: No relevant comparison available. FINDINGS: MAXILLARY: Mild mucosal thickening bilaterally. ETHMOID: No appreciable mucosal thickening or fluid level. FRONTAL: Suspect mild mucosal thickening. SPHENOID: No appreciable mucosal thickening or fluid level. OTHER: Negative. XR/XR sinus min 3V IMPRESSION: 1. No fluid levels to suggest acute sinusitis. 2. suspect mild chronic sinusitis of the frontal and maxillary sinuses. Electronically authenticated by: WILFRID ROSALES Date: 03/24/2024 15:50 Dictated By: Wilfrid Rosales M.D. Signed By:03/24/242 DD/ 49 TD/TT: Staffing Executive: us Deb Robles MD IMG XR PROCEDURES Final Resul t documented in this encounter Visit Diagnoses Not on filedocumented in this encounter Care Teams Coil Winder Hand Relationship Specialty Start Date End Date Mervin Chanel DO [address] [place] [address] PCP - General Internal Medicine 09/30/22 documented as of this encounter
--- OUTSIDE RECORDS SUMMARY | 2024-10-13 09:39 | XMS_ITS | Encounter Summary ---
Author Organization [facility] Address [address] [place] [address] Care Team Providers Care Childcare Attendant Name Role Phone Mervin Chanel DO Primary Care Provider [phone] Mervin Chanel DO Primary Care Provider [phone] Source Comments In the event this information is protected by the Federal Confidentiality of Alcohol and Drug AbusePatient Records regulations: The Federal rules restrict any use of the information to criminally investigate or prosecute any alcohol or drug abuse patient.[facility] Encounter Details Date Type Department Care Team (Late st Contact Info) Description 06/03/2020 Patient Msg Pre Anesthesia [address] [place] [address] Kathy Lopez PA-C [address] [place] [address] Your pre-operative instructions Social History Tobacco Use Types Packs/Day Years Used Date Smoking Tobacco: Never Smokeless Tobacco: Never Alcohol Use Standard Drinks/Week Comments Yes 0 (1 standard drink = 0.6 oz pur e alcohol) very seldom PHQ-2 Answer Date Recorded PHQ-2 score 0 02/15/2020 Area Deprivation Index Answer Date Pool rded National Score (1-100), lower number is lower ri sk Not on file 04/07/2020 State Score (1-10), lower number is lower risk N ot on file 04/07/2020 Data from: https://www.neighborhoodatlas.medicine.[facility]/. Last address used for calculation Not on file 04/07/2020 Comments No Sex and Gender Information Value Date Recorded Sex Assigned at Not on file Legal Sex Female 9:57 AM EST Gender Identity Not on file Sexual Orientation Not on file COVID-19 Exposure Response Date Recorded In the last month, have you been in contact with someone who was confirmed or suspected to have Coronavirus / COVID-19? No / Unsure 06/05/2020 10:23 AM EST documented as of this encounter Functional Status * Are you deaf or do you have serious difficulty hearing? Answer Date of Assessment Author No 10/09/2014 2:40 PM Selena Cox MA * Are you blind or do you have serious difficulty seeing, even when wearing glasses? Answer Date of Assessment Author No 10/09/2014 2:40 PM Selena Cox MA * Do you have serious difficulty walking or climbing stairs? Answer Date of Assessment Author No 10/09/2014 2:40 PM Selena Cox MA * Do you have difficulty dressing or bathing? Answer Date of Assessment Author No 10/09/2014 2:40 PM Seelna Cox MA * Because of a physical, mental, or emotional condition, do you have difficulty doing errands alone such as visiting a doctor's office or shopping? Answer Date of Assessment Author No 10/09/2014 2:40 PM Selena Cox MA documented as of this encounter Mental Status * Because of a physical, mental, or emotional condition, do you have serious difficulty concentrating, remembering, or making decisions? Answer Entry Date Author No 10/09/2014 2:40 PM Selena Cox MA documented in this encounter Plan of Treatment Not on file documented as of this encounter Visit Diagnoses Not on filedocumented in this encounter Care Teams Childcare Attendant Relationship Specialty Start Date End Date Mervin Chanel DO [address] [place] [address] [address] [facility] [place] [address] PCP - General 03/08/13 06/03/20 Mervin Chanel DO [address] [place] [address] [address] [place] [address] PCP - General Internal Medicine 06/04/20 documented as of this encounter
--- OUTSIDE RECORDS SUMMARY | 2024-10-13 09:39 | XMS_ITS | Clinical Summary ---
Author Organization [facility] Address [address] [place] [address] Care Team Providers Care Stone Repairer Name Role Phone Darío Mervin Rosenthal DO Primary Care Provider Allergies Active Allergy Reactions Criticality Noted Date Comments Atorvastatin Calcium Itching Medium 03/05/2011 Penicillins Hives High 03/05/2011 Medications fluticasone (FLONASE) 50 mcg/actuation nasal spray 2 Sprays once daily. 01/19/20 16 Active carvedilol (COREG) 6.25 mg tablet Take 6.25 mg by mouth twice daily with meals. 06/18/19 17 Active omeprazole (PRILOSEC) 20 mg capsule Take 20 mg by mouth once daily. 11/25/19 17 Active baclofen (LIORESAL) 20 mg tablet Take 1 tablet by mouth daily at bedtime. 06/03/19 21 Active hydroCHLOROthiazide (HYDRODIURIL, ESIDRIX) 25 mg tablet Take 25 mg by mouth once daily. 04/17/20 20 Active ALLERGY RELIEF, CETIRIZINE, 10 mg tablet 02/29/20 21 Active traMADol (ULTRAM) 50 mg tablet every 6 hours as needed. 03/18/20 21 Active gabapentin (NEURONTIN) 300 mg capsuleIndications:M alignant neoplasm of left breast in female, estrogen receptor negative, unspecified site of breast (HCC),Neuropathy due to chemotherapeutic drug (HCC) TAKE 1 CAPSULE BY MOUTH IN THE MORNING AND 2 CAPSULES IN THE AFTERNOON AND AT BEDTIME 450 capsule 3 05/06/19 23 Active torsemide (DEMADEX) 20 mg tablet Take 1 tablet by mouth every afternoon. 05/30/19 24 Active gabapentin (NEURONTIN) 300 mg capsule Take 2 capsules by mouth three times a day for 360 days. 540 capsule 3 08/08/19 25 026 Active LISINOPRIL ORAL Take by mouth. Active lisinopril 2.5 mg tablet Take 2.5 mg by mouth once daily. Active Active Problems Problem Noted Date Diagnosed Date Obesity, Class I, BMI 30-34.9 06/18/2020 GERD (gastroesophageal reflux disease) Assessment & Plan (06/03/2020 12:54 PM EST): Assessment: on Prilosec CKD (chronic kidney disease) 06/03/2020 Assessment & Plan (06/03/2020 12:56 PM EST): Assessment: per care everywhere. Did have a drop in GFR last fall that improved upon recheck. Will have pre-op labs ordered by surgeon. History of breast cancer 10/09/2014 Neuropathy due to chemotherapeutic drug 03/30/20 12 Assessment & Plan (06/03/2020 12:54 PM EST): Assessment: on Gabapentin tid Breast cancer 03/30/2012 Cancer Staging:Clinical: Unsigned Pathologic:ER -, DE - , HER2 -(T2, N2) - Unsigned Breast cancer, left breast Hypercholesteremia Hypertension Assessment & Plan (06/03/2020 12:53 PM EST): Assessment: on Coreg and hctz. BP today 136/90 Osteoarthritis Bundle branch block, left Assessment & Plan (06/03/2020 12:54 PM EST): Assessment: chronic. Follows with Dr. Cheung at [facility] Mild depression S/P left mastectomy Resolved Problems Problem Noted Date Diagnosed Date Resolved Date Rectal tumor 06/19/2020 06/20/2020 Encounters Date Type Department Care Team Description 08/21/2024 11:20 AM EDT Visit (SP) Office Hematology/Oncology [address] [place] [address] [place] [address] Joaquin Mercado MD Malignant neoplasm of upper-outer quadrant of left breast in female, estrogen receptor negative (HCC) (Primary Dx) 08/21/2024 Travel 08/07/2024 Refill Hematology/Oncology [address] [place] [address] [place] [address] Joaquin Mercado MD Refill Request from Last 3 Months Immunizations Immunization Administration Dates Next Due COVID-19 original vaccine, a ge 12+ yr, monovalent (PFIZER-BIONTECH - PURPLE TOP) 08/28/2021 COVID-19 original vaccine, f ull dose, monovalent (MODERNA) 05/10/2022 influenza (HD-IIV3) vaccine, age 65+ yr, high dose, trivalent, PF (FLUZONE HIGH-DOSE) 01/29/2020,02/17/2018,02/02/2017 influenza (HD-IIV4) vaccine, age 65+ yr, high dose, quadrivalent, PF (FLUZONE HIGH-DOSE) 01/28/2021 influenza (IIV3) vaccine, tr ivalent (AFLURIA, FLULAVAL, FLUVIRIN, FLUZONE) 01/01/2022 influenza (IIV4) vaccine, ag e 6 mo - 64 yr, quadrivalent, PF (AFLURIA, FLUARIX, FLULAVAL, FLUZONE) 02/17/2019,06/09/2017,02/16/2017,05/05,04/02/2016 influenza (IIV4) vaccine, qu adrivalent (AFLURIA, FLULAVAL, FLUZONE) 04/02/2016 influenza (LAIV) vaccine, na melissa, unspecified formulation 01/14/2022,01/31/2020,02/02/2019,05/05 influenza (aIIV4) vaccine, a ge 65+ yr, quadrivalent, PF (FLUAD QUAD) 01/22/2023,01/14/2022 influenza vaccine, unspecifi ed formulation 06/27/2011 pneumococcal conjugate (PCV1 3) vaccine, 13 valent (PREVNAR 13) 05/11/2022,12/30/2016,09/16/2015 pneumococcal polysaccharide (PPV23) vaccine, 23 valent (PNEUMOVAX 23) 07/20/2020,02/08/2017,05/03/2015,02/21,05/03/2013,01/31/2013,06/27/2011 tetanus diphtheria (Td) vacc ine, age 7+ yr, 5 Lf tetanus, PF (TENIVAC) 02/21/2014 zoster (RZV) vaccine, recomb inant (SHINGRIX) 05/27/2020,02/28/2020 zoster (ZVL) vaccine, live (ZOSTAVAX) 05/27/2020 ,02/28/2020,01/31/2014 Family History Medical History Relation Comments Cancer Father testicular Breast Cancer Maternal Aunt Breast Cancer Mother Breast Cancer Other 3 maternal first cousin; 2 Relation Status Comments Father Maternal Aunt Mother Other Social History Tobacco Use Types Packs/Day Years Used Date Smoking Tobacco: Never Smokeless Tobacco: Never Alcohol Use Standard Drinks/Week Comments Yes 0 (1 standard drink = 0.6 oz pur e alcohol) very seldom PHQ-2 Answer Date Recorded PHQ-2 score 0 06/22/2023 Area Deprivation Index Answer Date Pool rded National Score (1-100), lower number is lower ri sk 86 05/18/2023 State Score (1-10), lower number is lower risk 8 05/18/2023 Data from: https://www.neighborhoodatlas.medicine.[facility].edu/. Last address used for calculation [address] 05/18/2023 Comments No Sex and Gender Information Value Date Recorded Sex Assigned at Not on file Legal Sex Female 9:57 AM EST Gender Identity Not on file Sexual Orientation Not on file Last Filed Vital Signs Vital Sign Reading Time Taken Comments Blood Pressure 117/57 08/21/2024 11:04 AM EDT Pulse 67 08/21/2024 11:04 AM EDT Temperature 36.3 C (97.4 F) 08/21/2024 11:04 AM EDT Respiratory Rate 18 08/21/2024 11:0 4 AM EDT Oxygen Saturation 99% 08/21/2024 11: 04 AM EDT Inhaled Oxygen Concentration - - Weight 74.7 kg (164 lb 10.9 oz) 025 11:04 AM EDT Height 157.5 cm (5' 2.01 ) 06/22/2023 1:28 PM ES T Body Mass Index 30.11 06/22/2023 1:28 PM EST Plan of Treatment Health Maintenance Due Date Last Done Comments Annual PCP Team Chronic Dise ase Visit 12/07/1967 Anxiety Screening 12/07/1967 Hepatitis C Screening 12/07/[address] Colonography 1994 Cologuard (FIT-DNA) 1994 Colonoscopy 1994 Colorectal Cancer Screening 1994 Fecal Occult Blood 1994 Lipid Screening 1994 Sigmoidoscopy 1994 DTaP,Tdap,Td Vaccine (1 - Tdap) 02/22/2014 4 Medicare Annual Wellness Visit 12/01/2014 Bone Density Screening 2014 Covid-19 Vaccine (8 - 2023-2 5 season) 2024 01/22/2023, 05/10/2022, 02/25/2022, Additional history exists Advance Directive Discussion 05/03/2024 RSV Vaccine (1 - 1-dose 75+ series) 2024 Hemoglobin/Hematocrit 08/21/2025 08/21/2024 , 06/22/2023, 05/19/2022, Additional history exists Serum Creatinine 08/21/2025 08/21/2024, , 05/19/2022, Additional history exists Diabetes Screening 08/22/2027 08/21/2024, 0 06/22/2023, 05/19/2022, Additional history exists Shingrix Vaccine Completed 05/27/2020, , 02/28/2020, Additional history exists Pneumococcal Vaccine: 50+ Completed 2022, 07/20/2020, 02/08/2017, Additional history exists Influenza Vaccine Completed 02/25/2024, , 01/14/2022, Additional history exists Medical Devices Implanted Type Area Marker Maker Device Identifier Shelf Expiration Date Model / Serial / Lot Djk-El-V-Kind Implant - [id number] Implanted:Qty : 1 on 06/26/2011 at [facility] A BUILDING Implant Left: Breast MENTOR JOAN [id number] / / [id number] Description:Ofelia CPX3 Med Height Tissue Rehabilitation Center Manager Gnz-Ml-H-Kind Implant - [id number] Implanted:Qty : 1 on 04/08/2012 at [facility] A BUILDING Implant Right: Breast [employer] 11/07/2015 10-210 / [id number] / N/A Description:Natrelle Silicon e Filled Breast Implant Lcl-Tg-R-Kind Implant - [id number] Implanted:Qty : 1 on 04/08/2012 at [facility] A BUILDING Implant Left: Breast [employer] 07/07/2016 20-800 / [id number] / N/A Description:Natrelle Silicon e Filled Breast Implant Exp Tiss 550ml Styl 7200 Med - [id number] Implanted:Qty : 1 on 10/21/2012 at [facility] Mammary / Breast Left: Breast MENTOR JOAN 08/30/2016 [id number] / / [id number] Imp Brst 375ml Styl 20 Smth - [id number] Implanted:Qty : 1 on 03/17/2013 at [facility] A BUILDING Mammary / Breast Right: Breast [employer] BREAST DIV 03/17/2017 96129 / [id number] / [id number] Description:smooth round hig h profile Imp Brst 700ml Styl 20 Smth - [id number] Implanted:Qty : 1 on 03/17/2013 at [facility] A BUILDING Mammary / Breast Left: Breast [employer] BREAST DIV 12/15/2016 / [id number] / [id number] Description:smooth round hig h profile Explanted Type Area Marker Maker Device Identifier Shelf Expiration Date Model / Serial / Lot Unl-Yb-X-Kind Implant - [id number] Explanted:Qty: 1 on 06/26/2011 at [facility] A BUILDING Implant Left: Breast [employer] 11/23/2014 133MV-14 / [id number] / Description:Tissue Rehabilitation Center Manager Moderate height Procedures Procedure Name Priority Date/Time Associated Diagnosis Comments COMPREHENSIVE METABOLIC PANEL Routine 08/21/2024 11:00 AM EDT Malignant neoplasm of upper-outer quadrant of left breast in female, estrogen receptor negative (HCC) CBC + DIFF Routine 08/21/2024 11:00 AM EDT Malignant neoplasm of upper-outer quadrant of left breast in female, estrogen receptor negative (HCC) from Last 3 Months Results * (ABNORMAL) COMPREHENSIVE METABOLIC PANEL (08/21/2024 11:00 AM EDT) Protein, Total 6.9 6.3 - 8.0 g/dL 08/21/2024 12:22 PM T [facility] Albumin 4.1 3.9 - 4.9 g/dL 08/21/2024 12:22 PM EDT [facility] Calcium, Total 10.1 8.5 - 10.2 mg/dL 08/21/2024 12:22 PM T [facility] Bilirubin, Total 0.4 0.2 - 1.3 mg/dL 08/21/2024 12:22 PM EDT [facility] Alkaline Phosphatase 84 34 - 123 U/L 08/21/2024 12:22 PM T [facility] AST 20 13 - 35 U/L 08/21/2024 12:22 PM T [facility] ALT 11 7 - 38 U/L 08/21/2024 12:22 PM [facility] Glucose 104(H) 74 - 99 mg/dL 08/21/2024 12:22 PM T [facility] Comment: The [place] Diabetes Association (ADA) provides guidance for cutoff [...] Standards of Medical Care in Diabetes 2016, [place] Diabetes Association. Diabetes Care. 2016.39(Suppl 1). BUN 61(H) 7 - 21 mg/dL 08/21/2024 12:22 PM [facility] Creatinine 1.33(H) 0.58 - 0.96 mg/dL 08/21/2024 12:22 PM [facility] Sodium 141 136 - 144 mmol/L 08/21/2024 12:22 PM T [facility] Potassium 4.8 3.7 - 5.1 mmol/L 08/21/2024 12:22 PM EDT [facility] Chloride 104 98 - 107 mmol/L 08/21/2024 12:22 PM EDT [facility] CO2 25 22 - 30 mmol/L 08/21/2024 12:22 PM EDT [facility] Anion Gap 12 8 - 15 mmol/L 08/21/2024 12:22 PM EDT [facility] Estimated Glomerular Filtration Rate 42(L) >=60 mL/min/1. 73m 08/21/2024 12:22 PM EDT [facility] Comment:Estimated Glomerular Filtration Rate (eGFR) is calculated using the 2020 CKD-EPI creatinine equation. This equation utilizes serum creatinine, sex, and age as parameters. The creatinine assay has traceable calibration to isotope dilution- mass spectrometry. Refer to KDIGO guidelines for clinical interpretation. In patients with unstable renal function, e.g. those with acute kidney injury, the eGFR may not accurately reflect actual GFR. Blood BLOOD SPECIMEN / Unknown Venipuncture / Unknown 08/21/2024 11:00 AM EDT 08/21/2024 11:01 AM EDT us Joaquin Mercado MD LABORATORY Final Result [facility] [address] [place] [address] * (ABNORMAL) COMPLETE BLOOD COUNT AND DIFFERENTIAL (08/21/2024 11:00 AM EDT) WBC 7.71 3.70 - 11.00 k/uL 08/21/2024 11:09 AM EDT [facility] RBC 4.07 3.90 - 5.20 m/uL 08/21/2024 11:09 AM EDT [facility] Hemoglobin 11.1(L) 11.5 - 15.5 g/dL 08/21/2024 11:09 AM EDT [facility] Hematocrit 34.2(L) 36.0 - 46.0 % 08/21/2024 11:09 AM EDT [facility] MCV 84.0 80.0 - 100.0 fL 08/21/2024 11:09 AM EDT [facility] MCH 27.3 26.0 - 34.0 pg 08/21/2024 11:09 AM EDT [facility] MCHC 32.5 30.5 - 36.0 g/dL 08/21/2024 11:09 AM EDT [facility] RDW-CV 15.7(H) 11.5 - 15.0 % 08/21/2024 11:09 AM EDT [facility] Platelet Count 328 150 - 400 k/uL 08/21/2024 11:09 AM EDT [facility] MPV 9.7 9.0 - 12.7 fL 08/21/2024 11:09 AM EDT [facility] Neutrophils % 63.5 % 08/21/2024 11:09 AM EDT [facility] Abs Neut 4.90 1.45 - 7.50 k/uL 08/21/2024 11:09 AM EDT [facility] Lymphocytes % 20.4 % 08/21/2024 11:09 AM EDT [facility] Abs Lymph 1.57 1.00 - 4.00 k/uL 08/21/2024 11:09 AM EDT [facility] Monocytes % 9.7 % 08/21/2024 11:09 AM EDT [facility] Abs Fallon 0.75 <0.87 k/uL 08/21/2024 11:09 AM EDT [facility] Eosinophils % 5.2 % 08/21/2024 11:09 AM EDT [facility] Abs Eosin 0.40 <0.46 k/uL 08/21/2024 11:09 AM EDT [facility] Basophils % 0.8 % 08/21/2024 11:09 AM EDT [facility] Abs Baso 0.06 <0.11 k/uL 08/21/2024 11:09 AM EDT [facility] Immature Granulocytes % 0.4 % 08/21/2024 11:09 AM EDT [facility] Abs Immature Gran 0.03 <0.10 k/uL 08/21/2024 11:09 AM EDT [facility] NRBC 0.0 /100 WBC 08/21/2024 11:09 AM EDT [facility] Absolute nRBC <0.01 <0.01 k/uL 08/21/2024 11:09 AM EDT [facility] Diff Type Auto 08/21/2024 11:09 AM EDT [facility] Blood BLOOD SPECIMEN / Unknown Venipuncture / Unknown 08/21/2024 11:00 AM EDT 08/21/2024 11:01 AM EDT Joaquin Mercado MD LABORATORY Final Result [facility] [address] [place] [address] from Last 3 [place] [address] MEDICARE RAILROAD MEDICARE AET[employer] SUPPLEMENT Advance Directives Documents on File Type Date Recorded Patient Industrial Relations Officer Expl anation Advance Directive(s) 06/07/2020 2:34 PM Advance Directive(s) 06/07/2020 2:34 PM Care Teams Stone Repairer Relationship Specialty Start Date End Date Mervin Chanel DO PCP - General Internal Medicine 06/04/20
--- OUTSIDE RECORDS SUMMARY | 2024-10-13 09:39 | XMS_ITS | Encounter Summary ---
Author Organization [facility] Address [address] [place] [address] Phone Care Team Providers Care Spinneret Person Name Role Phone Mervin Chanel DO Primary Care Provider [phone] Mervin Chanel DO Primary Care Provider [phone] Encounter Details Date Type Department Care Team (Late st Contact Info) Description 12/09/2020 Orders Only [facility] [address] [place] [address] Conversion, Onbase Social History Tobacco Use Types [...] Description 12/21/2024 11:00 AM EDT Office Visit [facility] [address] [facility] [address] [place] [address] Bryce Cheung MD [address] [facility] [address] [place] [address] Scheduled Orders Name Type Priority Associated Diagnoses Orde r Schedule OUTSIDE LAB SCAN Lab Ordered: 12/09/2020 OUTSIDE LAB SCAN Lab Ordered: 12/09/2020 documented as of this encounter Visit Diagnoses Not on filedocumented in this encounter Care Teams Spinneret Person Relationship Specialty Start Date End Date Mervin Chanel DO PCP - General 02/22/19 01/04/24 Mervin Chanel DO [address] [place] [address] PCP - General Internal Medicine 01/05/24 documented as of this encounter
--- OUTSIDE RECORDS SUMMARY | 2024-10-13 09:39 | XMS_ITS | Encounter Summary ---
Author Organization [facility] Address [address] [place] [address] Phone Care Team Providers Care Modern Greek Studies Professor Name Role Phone Mervin Chanel DO Primary Care Provider [phone] Mervin Chanel DO Primary Care Provider [phone] Encounter Details Date Type Department Care Team (Late st Contact Info) Description 05/10/2022 Orders Only [facility] [address] [place] [address] Conversion, Onbase Social History Tobacco Use Types Packs/Day Years Used Date Smoking Tobacco: Never Assessed Comments Unknown Sex and Gender Information Value Date Recorded Sex Assigned at Female 03/02/2023 2:42 PM EDT Legal Sex Female 2:47 PM EST Gender Identity Female 03/02/2023 2:42 PM EDT Sexual Orientation Not on file documented as of this encounter Functional Status * Little interest or pleasure in doing things Answer Date of Assessment Author Not at all 05/12/2022 11:27 AM EST Conversi on, [employer] Touch[employer] Vitals documented as of this encounter Plan of Treatment Upcoming Encounters Date Type Department Care Team (Late st Contact Info) Description 12/21/2024 11:00 AM EDT Office Visit [facility] [address] [facility] [address] [place] [address] Bryce Cheung MD [address] [facility] [address] [place] [address] Scheduled Orders Name Type Priority Associated Diagnoses Orde r Schedule OUTSIDE LAB SCAN Lab Ordered: 05/10/2022 documented as of this encounter Visit Diagnoses Not on filedocumented in this encounter Care Teams Modern Greek Studies Professor Relationship Specialty Start Date End Date Mervin Chanel DO PCP - General 02/22/19 01/04/24 Mervin Chanel DO [address] [place] [address] PCP - General Internal Medicine 01/05/24 documented as of this encounter
--- OUTSIDE RECORDS SUMMARY | 2024-10-13 09:39 | XMS_ITS | Encounter Summary ---
Author Organization [facility] Address [address] [place] [address] Phone Care Team Providers Care Adolescent Counselor Name Role Phone Mervin Chanel DO Primary Care Provider [phone] Mervin Chanel DO Primary Care Provider [phone] Encounter Details Date Type Department Care Team (Late st Contact Info) Description 05/11/2022 Orders Only [facility] [address] [place] [address] Conversion, Onbase Social History Tobacco Use Types [...] Description 12/21/2024 11:00 AM EDT Office Visit [facility] [address] [facility] [address] [place] [address] Bryce Cheung MD [address] [facility] [address] [place] [address] Scheduled Orders Name Type Priority Associated Diagnoses Orde r Schedule OUTSIDE LAB SCAN Lab Ordered: 05/11/2022 documented as of this encounter Visit Diagnoses Not on filedocumented in this encounter Care Teams Adolescent Counselor Relationship Specialty Start Date End Date Mervin Chanel DO PCP - General 02/22/19 01/04/24 Mervin Chanel DO [address] [place] [address] PCP - General Internal Medicine 01/05/24 documented as of this encounter
--- OUTSIDE RECORDS SUMMARY | 2024-10-13 09:39 | XMS_ITS | Encounter Summary ---
Author Organization [facility] Address [address] [place] [address] Care Team Providers Care Bakery Team Leader Name Role Phone Darío Mervin Rosenthal DO Primary Care Provider [phone] Mervin Chanel DO Primary Care Provider [phone] Source Comments In the event this information is protected by the Federal Confidentiality of Alcohol and Drug AbusePatient Records regulations: The Federal rules restrict any use of the information to criminally investigate or prosecute any alcohol or drug abuse patient.[facility] Encounter Details Date Type Department Care Team (Late st Contact Info) Description 05/31/2020 Patient Msg Colorectal Surgery [address] [place] [address] Provider, Ccf pre operative Social History Tobacco Use Types Packs/Day Years Used Date Smoking Tobacco: Never Smokeless Tobacco: Never Alcohol Use Standard Drinks/Week Comments Yes 0 (1 standard drink = 0.6 oz pur e alcohol) social PHQ-2 Answer Date Recorded PHQ-2 score 0 02/15/2020 Area Deprivation Index Answer Date Pool rded National Score (1-100), lower number is lower ri sk Not on file 04/07/2020 State Score (1-10), lower number is lower risk N ot on file 04/07/2020 Data from: https://www.neighborhoodatlas.[facility]/. Last address used for calculation Not [...] have Coronavirus / COVID-19? No / Unsure 06/03/2020 12:22 PM EST documented as of this encounter Functional Status * Are you deaf or do you have serious difficulty hearing? Answer Date of Assessment Author No 10/09/2014 2:40 PM EDT Selena Aguilar MA * Are you blind or do you have serious difficulty seeing, even when wearing glasses? Answer Date of Assessment Author No 10/09/2014 2:40 PM EDSelena Rosenthal MA * Do you have serious difficulty walking or climbing stairs? Answer Date of Assessment Author No 10/09/2014 2:40 PM EDSelena Rosenthal MA * Do you have difficulty dressing or bathing? Answer Date of Assessment Author No 10/09/2014 2:40 PM Selena Cox MA * Because of a physical, [...] on filedocumented in this encounter Care Teams Bakery Team Leader Relationship Specialty Start Date End Date Mervin Chanel DO [address] [place] [address] [address] [place] [address] PCP - General 03/08/13 06/03/20 Mervin Chanel DO [address] [place] [address] [facility] [place] [place] [address] PCP - General Internal Medicine 06/04/20 documented as of this encounter
--- OUTSIDE RECORDS SUMMARY | 2024-10-13 09:39 | XMS_ITS ---
Author Organization [facility] Address [address] [place] [address] Care Team Providers Care Medical Record Librarians Teacher Name Role Phone Mervin Chanel Primary Care Provider [phone] Active Problems Problem Noted Date Diagnosed Date [...] cancer 03/30/2012 Cancer Staging:Clinical: Unsigned Pathologic:ER -, [place] - , HER2 -(T2, N2) - Unsigned Breast cancer, left breast Hypercholesteremia Hypertension Assessment & Plan (06/03/2020 12:53 PM EST): Assessment: on Coreg and hctz. BP today 136/90 Osteoarthritis Bundle branch block, left Assessment & Plan (06/03/2020 12:54 PM EST): Assessment: chronic. Follows with Dr. Cheung at [facility] Mild depression S/P left mastectomy Current Treatment and Therapy Plans No current plan information found. Past Treatment and Therapy Plans NON-CHEMO 1 Plan Name Start Date Discontinue Date Treatment Medications Discontinue Reason Plan Provider Cycles CENTRAL LINE FLUSH - ONE TIME 2 No medications scheduled. Treatment Complete Hilda Brown, STAINING MACHINE OPERATOR.TUBING SUPERVISOR 1 of 2 cycles started Resolved Problems Problem Noted Date Diagnosed Date Resolved Date Rectal tumor 06/19/2020 06/20/2020
[2024-10-13 09:53] LABS: Basophils Absolute Auto 0.1 10^3/uL (0.0-0.1); Basophils Percent Auto 0.9 % (0.2-2.0); Eosinophils Absolute Auto 0.3 10^3/uL (0.0-0.7); Eosinophils Percent Auto 3.4 % (0.9-7.0); Hematocrit 35.1 % (36.0-48.0); Hemoglobin 11.3 g/dL (12.0-16.0); Immature Granulocytes Abs Auto 0.03 10^3/uL (0.00-0.03); Immature Granulocytes Pct Auto 0.4 % (0.0-0.5); Lymphocytes Absolute Auto 1.2 10^3/uL (1.2-3.8); Mean Corpuscular HGB Conc 32.2 g/dL (29.9-35.2); Mean Corpuscular Hemoglobin 27.3 pg (26.7-34.0); Mean Corpuscular Volume 84.8 fL (81.0-99.0); Mean Platelet Volume 9.6 fL (9.5-13.5); Monocytes Absolute Auto 1.1 10^3/uL (0.3-0.8); Monocytes Percent Auto 13.5 % (1.7-12.0); Neutrophils Absolute Auto 5.3 10^3/uL (1.4-6.5); Neutrophils Percent Auto 66.8 % (43.0-75.0); Platelet Count 305 10^3/uL (150-450); Red Blood Count 4.14 10^6/uL (4.20-5.40); Red Cell Distribution Width 17.2 % (11.0-15.0)
[2024-10-13 10:20] LABS: Anion Gap 8.8; BUN Creatinine Ratio 26.8; Calcium 9.6 mg/dL (8.5-10.1); Carbon Dioxide 34.1 mmol/L (21.0-32.0); Chloride 100 mmol/L (98-107); Estimated GFR (African America 25 (>=60 mL/min/1.73m^2); Estimated GFR (Non-African Ame 21 (>=60 mL/min/1.73m^2); Glucose 92 mg/dL (74-106); Potassium 4.9 mmol/L (3.5-5.1); Sodium 138 mmol/L (136-145)
== END 2024-10-13 09:36 | disposition home or self-care (01) ==
LOC: MRI 09:35
PROVIDERS: PCP Internal Medicine; Visit Provider Internal Medicine
DX: R26.81 Unsteadiness on feet (principal); R29.898 Other symptoms and signs involving the musculoskeletal system; D64.9 Anemia, unspecified; N18.32 Chronic kidney disease, stage 3b; I67.82 Cerebral ischemia
CPT/HCPCS: 36415; 70551; 80048; 85025

== ENCOUNTER 2025-02-20 12:53 | Outpatient (OUT) | payer MEDICARE, SELFPAY ==
--- OUTSIDE RECORDS SUMMARY | 2025-02-12 14:45 | XMS_ITS | Encounter Summary ---
Author Organization [facility] Address [address] [place] [address] Care Team Providers Care Food Order Delivery Runner Name Role Phone Mervin Chanel DO Primary Care Provider Reason for Visit * ReasonCommentsPain Encounter Details DateTypeDepartmentCare Team (Latest Contact Info)Pjaxylgkvlj47/13/2025 2:45 PM EDTOffice Visit [facility] [address] [place] [phone] Dean Ren PA [address] [place] [address] Acute pain of right shoulder (Primary Dx); Rotator cuff arthropathy of right shoulder; Subacromial impingement of right shoulder Social History Tobacco UseTypesPacks/DayYears UsedDateSmoking Tobacco: NeverSmokeless Tobacco: NeverAlcohol UseStandard Drinks/WeekCommentsYes1 (1 standard drink = 0.6 oz pure alcohol)caffeine intake: 2-3 cups per day of diet cokeCommentsUnknownSex and Gender InformationValueDate RecordedSex Assigned at BirthNot on fileLegal GvcTjuyzf23/15/2023 7:03 PM EDTGender IdentityNot on fileSexual OrientationNot on filedocumented as of this encounter Progress Notes * ANA Cantu - 02/12/2025 2:45 PM EDT Images from the original note were not included. Orthopedic Office note: NAME: Renuka Owen : 1950 (EST PT) (LAST APPT W/ KEY) - (R) SHOULDER DISCOMFORT SINCE ~07/2019 (5 YRS, 7 MONTHS) ; FLARE UP AFTER 1-MONTH HOSPITAL STAY FOR [place]ITIS 10/2024 (3 MONTHS[place] [place], 02/12/25 IN EPIC MRI 04/29/21 IN EXA MRI 07/22/20 @[facility] 03/26/21 HX (R) SA CORTISONE INJECTION INTERMITTENT SUPERIOR DISCOMFORT WITH USE - WORSE HS - CAN RADIATE INTO NECK. DENIES SWELLING. OCCASIONAL N/T TO HAND. DENIES STIFFNESS / WEAKNESS. GOOD ROM. DENIES POPPING / CATCHING / SNAPPING. DENIES WAKING HS. TRAMADOL / TYL PRN - SOME RELIEF. ADMITS HEATING. DENIES HEATING. PAIN PATCHES HS - WITH RELIEF. Shoulder Musculoskeletal Exam Inspection Right Right shoulder inspection is normal. Ecchymosis: none Peripheral edema: none Atrophy: none Masses: none Palpation Right Crepitus: no crepitus Increased warmth: none Tenderness: present Anterior shoulder: mild AC joint: mild Lateral arm: mild Range of Motion Right Right shoulder range of motion is normal. Active ROM: pain. Passive ROM: pain. Right shoulder active abduction: + pain passing 90 degrees. Strength Right External rotation: 5/5. Internal rotation: 5/5. Abduction: 4+/5. Abduction is affected by pain. (mild pain against resistance) Biceps: 5/5. Triceps: 5/5. Neurovascular Right Radial pulse: normal and 2+ Capillary refill: <3 sec Axillary nerve sensory distribution: normal Scapula Right Right shoulder scapula is normal. Position: normal Winging: none Special Tests Right Rotator Cuff Signs Neer's test: positive Henderson test: positive Painful arc test: positive Biceps/jos Signs Speed's test: negative General Constitutional: appears stated age Neurological: alert and oriented x3 Orders Placed This Encounter Procedures XR shoulder 2+ views right Reason for exam:: Pain Procedures Results - Imaging: - X-ray of the right shoulder: Likely rotator cuff arthropathy with chronic impingement from longstanding rotator cuff tear ICD-10-CM 1. Acute pain of right shoulder M25.511 XR shoulder 2+ views right 2. Rotator cuff arthropathy of right shoulder M12.811 3. Subacromial impingement of right shoulder M75.41 Assessment & Plan Right shoulder pain, acute on chronic with a prior rotator cuff tear. Symptoms are currently manageable but increase with use and activity. The utility of a cortisone injection was discussed, which has previously provided relief. However, due to a pertinent history of glaucoma diagnosed since her prior injections, the potential adverse effects of glucocorticoids were considered. Consultation with her eye doctor was recommended, and she has an appointment later in the month. If she feels the need for an injection, she will reschedule to discuss his recommendationson possible in-office follow-up after the injection. She expressed gratitude for the time spent discussing her eyesight and history of glaucoma with prior surgery. Her x-ray was reviewed, indicating likely rotator cuff arthropathy with chronic impingement from a longstanding rotator cuff tear. Diagnostic plan: Consultation with her eye doctor. Treatment plan: Discussion of cortisone injection and its potential adverse effects due to glaucomahistory. Clinical decision making: Consideration of risks and benefits of glucocorticoids due to glaucoma history. Follow-up: Appointment with eye doctor later in the month. F/U after appt with her Garnett Fixer to discuss possible SA injection. Questions answered in laymen terms at the bedside. The diagnosis, home exercise plan and any ongoing restrictions/ recommendations reviewed. If unable to be reached in office, I recommend evaluation at nearest Emergency Room if any symptoms worsened or new symptoms develop for requiring urgent evaluation. Visit was preformed using [email or web address] Co-air force pilot speech recognition. documented in this encounter Plan of Treatment DateTypeDepartmentCare Team (Latest Contact Info)Ldwjfturqql20/03/2025 2:15 PM ESTOffice Visit [facility] [address] [place] [phone] Nba Malhotra DO [address] [place] [address] 03/19/2025 3:15 PM ESTProcedure Visit [facility] [address] [place] [address] Wilfrid Olson, DPM [address] [place] [address] documented as of this encounter Procedures Procedure NamePriorityDate/TimeAssociated DiagnosisCommentsXR SHOULDER 2+ VIEWS LWZTPTxffgqq43/13/2025 2:47 PM EDT Acute pain of right shoulder documented in this encounter Results * XR shoulder 2+ views right (02/12/2025 2:47 PM EDT)Anatomical RegionLaterality ModalityUpper Extremities, ShoulderRightRadiographic ImagingSpecimen (Source) Anatomical Location / LateralityCollection Method / VolumeCollection Time Received Time Narrative 02/13/2025 6:50 AM EDT Imaging Result: Right Shoulder AP and Scap Y No acute fracture or dislocation Bone Structures clavicle and scapula and humeral head visualized with elevation of humeral head and degenerative changes at cuff insertion and articular surface of acromion concerning for chronic rotator cuff tear/ impingement. ??AC joint hypertrophy with underlying degenerative changes. Glenohumeral joint space narrowed with some subchondral sclerosis. Soft tissues and limited visualized lung yu unremarkable Impression: No acute bony process right shoulder with degenerative changes at AC ??joint Authorizing ProviderResult TypeResult StatusMattheglory Ren PAI XR PROCEDURES Final Result documented in this encounter Visit Diagnoses Diagnosis Acute pain of right shoulder- Primary Rotator cuff arthropathy of right shoulder Subacromial impingement of right shoulder documented in this encounter Care Teams Team MemberRelationshipSpecialtyStart DateEnd Date Mervin Chanel, [address] [place] [phone] PCP - GeneralInternal Medicine09/30/22documented as of this encounter
--- OUTSIDE RECORDS SUMMARY | 2025-02-12 14:50 | XMS_ITS | Encounter Summary ---
Author Organization [facility] Address [address] [place] [address] Care Team Providers Care Technical Photographer Name Role Phone Mervin Chanel DO Primary Care Provider [phone] Encounter Details DateTypeDepartmentCare Team (Latest Contact Info)Pzdalrswqaa09/13/2025 2:50 PM EDTAncillary Procedure [facility] [address] [place] [address] Social History Tobacco UseTypesPacks/DayYears UsedDateSmoking Tobacco: NeverSmokeless Tobacco: NeverAlcohol UseStandard Drinks/WeekCommentsYes1 (1 standard drink = 0.6 oz pure alcohol)caffeine intake: 2-3 cups per day of diet cokeCommentsUnknownSex and Gender InformationValueDate RecordedSex Assigned at BirthNot on fileLegal GbtIpcjht06/15/2023 7:03 PM EDTGender IdentityNot on fileSexual OrientationNot on filedocumented as of this encounter Plan of Treatment DateTypeDepartmentCare Team (Latest Contact Info)Jzspevxhito55/03/2025 2:15 PM ESTOffice Visit [facility] [address] [place] [phone] Nba Malhotra, DO [address] [place] [address] 03/19/2025 3:15 PM ESTProcedure Visit [facility] [address] [place] [phone] Wilfrid Olson, ARIAS [address] [place], [place] [phone] documented as of this encounter Procedures Procedure NamePriorityDate/TimeAssociated DiagnosisCommentsXR SHOULDER 2+ VIEWS VXTVBBvqzkdj41/13/2025 2:47 PM EDT Acute pain of right [...] changes at AC ??joint Authorizing ProviderResult TypeResult StatusMatthew Brian Ren PAIMG XR PROCEDURES Final Result documented in this encounter Visit Diagnoses Not on filedocumented in this encounter Care Teams Team MemberRelationshipSpecialtyStart DateEnd Date Mervin Chanel, [address] [place] [address] PCP - GeneralInternal Medicine09/30/22documented as of this encounter
--- OUTSIDE RECORDS SUMMARY | 2025-02-20 12:57 | XMS_ITS | Patient Health Record ---
Author Organization [facility] in [place] Address [address] [place] [address] Care Team Providers Care Stock Raiser Name Role Phone Darío Mervin FENG Primary Care Provider Unavaila ble Allergies Allergen (clinical drug ingredient) Drug/Non Drug Allergy documented on EMR Reaction Allergy Type Onset Date Status atorvastatin Lipitor hives Drug Allergy ActivePenicillinhivesDrug AllergyActive Reason For Referral No Information Medications Medication SIG (Take, Route, Frequency, Duration) Notes Start Date End Date Status Gabapentin 300 MG 1 capsule Orally Once a day ActiveAspirin 81 81 MG1 tablet Orally Once a dayActiveBaclofen 20 MG1 tablet Administer without regards to meals as needed Orally Twice a dayActivetraMADol HCl 50 MG1 tablet as needed Orally Once a dayActiveCarvedilol 6.25 MG1 tablet with food Orally Twice a dayActiveEnalapril Maleate 2.5 MG1 tablet Orally Once a dayActiveOmeprazole 40 MG1 capsule 30 minutes before morning meal Orally Once a dayActivetraZODone HCl 50 MG1 tablet at bedtime as needed Orally Once a day Active Social History Tobacco Use: Social History Observation Description Date Details (start date - stop date) Never Smoker NA - NA Tobacco Control (Standard) Question Answer Notes Tobacco use: Nonsmoker Problems Problem Type SNOMED Code ICD Code Onset Dates Problem Status W/U Status Risk Notes Problem 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 (7 477606) 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) ActiveconfirmedProblemLocalized, primary osteoarthritis of the ankle and/or foot (539422109)Primary osteoarthritis, left ankle and foot (M19.072)Activeconfirmed Plan Of Treatment No Information Insurance Providers Payer Name Payer Address Payer Phone Subscriber Number Group Number Insured Name Patient Relationship to Insured Coverage Start Date Coverage End Date MEDICARE RAILROAD [address] [address] YARITZA Shepard [place], [place] [id number] BraydenGabi aguilarelf [place] [address] [id number], DeborahSelf - patient is the insured Medical (General) History Medical History History ICD Code arthritis hx of breast cancerheart diseasehypertensionSurgical History Surgery Date(Month/Year) rotator cuff knee replacement e8eeoorydrk massreconstructionmascetomyback surgeries x3 cholecystectomy
--- OUTSIDE RECORDS SUMMARY | 2025-02-20 12:57 | XMS_ITS | Clinical Summary ---
Author Organization [facility] Address [address] [facility] [place] [address] Care Team Providers Care Payment Collector Name Role Phone Unavailable Primary Care Provider Unavailabl e Source Comments The following information is NOT included in Care Everywhere downloads:Psychiatric notes, ECG results, Cardiac Rehab notes, Pulmonary Function notes, data from [employer] (includes but not limited toPregnancy data,audiograms, eye exams, pre-surgical evaluation notes, well-child exam data).[facility] Social History Tobacco UseTypesPacks/DayYears UsedDateSmoking Tobacco: Never Assessed CommentsUnknownSex and Gender InformationValueDate RecordedSex Assigned at Not on fileLegal IunAfscwf35/21/2023 12:36 PM ESTGender IdentityNot on file Sexual OrientationNot on file Last Filed Vital Signs Vital SignReadingTime TakenCommentsBlood Dikwgsvk620/6511 6:00 AM EDT Amqxd3179 6:00 AM EDTTemperature--Respiratory Rate--Oxygen Muwasazsoz00% 03/06/2023 6:00 AM EDTInhaled Oxygen Concentration--Weight--Height--Body Mass Index-- Plan of Treatment Health MaintenanceDue DateLast RpktFdtkechqZeghwwoupxg29/06/1950Hepatitis C Jmrkvdbk07/06/1968Tdap Wjfpibj3012/07/1967Hepatitis A (HAV) Vaccine (optional start 19+ years)12/06/19680847Ovprwpgpmyg99/06/1990CRC Wtttffqdj83/06/1995 Iialtzgfpbx89/06/1995Cologuard (Stool DNA)1994FIT1994Pneumococcal Vaccine(s) (50+ yrs) (1 of 1 - PCV)12/07/1999Shingles (RZV) Vaccine (1 of 2) 12/07/1999Hepatitis B (HBV) Vaccine (optional start 60+ years)08/06/2010Bone Ckjibsjckiyq35/06/2015nnual Wellness Visit (G0438)12/02/2015RSV vaccine (adult) (1 - 1-dose 75+ series)2024OVID-19 Vaccine (2023- season)2025 Influenza Vaccine (#1)2025Pap SmearDiscontinued Insurance
--- OUTSIDE RECORDS SUMMARY | 2025-02-20 12:57 | XMS_ITS | Encounter Summary ---
Author Organization [facility] Address [address] [facility] [place] [address] Care Team Providers Care Register Repairer Name Role Phone Mervin Chanel Primary Care Provider [phone] Encounter Details DateTypeDepartmentCare Team (Latest Contact Info)Nyhqmgrkgla90/13/2025Travel Social History Tobacco UseTypesPacks/DayYears UsedDateSmoking Tobacco: NeverSmokeless Tobacco: NeverAlcohol UseStandard Drinks/WeekCommentsYes1 (1 standard drink = 0.6 oz pure alcohol)caffeine intake: 2-3 cups per day of diet cokeCommentsUnknownSex and Gender InformationValueDate RecordedSex Assigned at BirthNot on fileLegal YmbSefvkh60/15/2023 7:03 PM EDTGender IdentityNot on fileSexual OrientationNot on filedocumented as of this encounter Plan of Treatment DateTypeDepartmentCare Team (Latest Contact Info)Ilegmshfvsu38/03/2025 2:15 PM ESTOffice Visit [facility] [address] [place] [address] Nba Malhotra DO [address] [place] [address] 03/19/2025 3:15 PM ESTProcedure Visit [facility] [address] [place] [address] Wilfrid Olson, DPM [address] [place] [address] documented as of this encounter Visit Diagnoses Not on filedocumented in this encounter Care Teams Team MemberRelationshipSpecialtyStart DateEnd Date Mervin Chanel DO [address] [place] [phone] PCP - GeneralInternal Medicine09/30/22documented as of this encounter
--- OUTSIDE RECORDS SUMMARY | 2025-02-20 12:57 | XMS_ITS | Clinical Summary ---
Author Organization [facility] Address [address] [facility], [address] [place] [address] Care Team Providers Care Athletic Monitor Name Role Phone Unavailable Primary Care Provider Unavailabl e Allergies Active AllergyReactionsCriticalityNoted WshhSobqwytqGhhyiyrgnyms21/23/2018 Zudpmziwyaq52/23/2018 Medications MedicationSigDispense QuantityRefillsLast FilledStart DateEnd DateStatus traMADol (ULTRAM) 50 MG tablet Take 50 mg by mouth as needed for Pain.Active Naproxen Sodium (ALEVE PO) Take by mouth as neededActive Active Problems No known active problems Social History Tobacco UseTypesPacks/DayYears UsedDateSmoking Tobacco: Never AssessedSmokeless Tobacco: NeverCommentsUnknownSex and Gender InformationValueDate RecordedSex Assigned at BirthNot on fileLegal RcpKffmai21/11/2018 2:11 PM EST Gender IdentityNot on fileSexual OrientationNot on file Last Filed Vital Signs Vital SignReadingTime TakenCommentsBlood Pressure--Pulse--Zzpyaeqxlcy88.9 ??C (96.6 ??F)05/25/2017 3:22 PM ESTRespiratory Rate--Oxygen Saturation--Inhaled Oxygen Concentration--Hilcyw71.6 kg (180 lb)05/25/2017 3:22 PM IDZGefror528 cm (5' 3 )05/25/2017 3:22 PM ESTBody Mass Index31.8905/25/2017 3:22 PM EST Plan of Treatment Not on file Insurance MemberSubscriberPlan / Payer (Effective 2017-Present)Name:Renuka Owen Relation to Subscriber:SelfName:Renuka Owen Payer ID:Not on file Group ID:Not on file Type:Not on file Address: [place] [id number]
--- OUTSIDE RECORDS SUMMARY | 2025-02-20 12:58 | XMS_ITS | Clinical Summary ---
Author Organization [facility] Address [address] [facility] [place] [address] Care Team Providers Care Rehabilitation Counselor Name Role Phone Mervin Chanel Primary Care Provider Allergies Active AllergyReactionsCriticalityNoted DateCommentsAtorvastatinHives,RashLow 12/28/20226517Huxacbgoawgw38/03/2025 Other Reaction(s): Unknown Reaction Coxnirgyerp23/28/2023 Other Reaction(s): Unknown Medications MedicationSigDispense QuantityRefillsLast FilledStart DateEnd DateStatus traMADol (Ultram) 50 MG tablet Take 50 mg by mouthActive baclofen (Lioresal) 20 MG tablet Take 20 mg by mouth in the morning and 20 mg in the evening and 20 mg before bedtime.Active gabapentin (Neurontin) 300 MG capsule Take 300 mg by mouth in the morning and 300 mg in the evening and 300 mg before bedtime.Active calcium carbonate (Calcium 600) 600 MG tablet Take 600 mg by mouth in the morning and 600 mg in the evening. Take with meals. Active cholecalciferol (Vitamin D-3) 25 MCG (1000 UT) capsule Take 1,000 Units by mouth DailyActive fluticasone (Flonase) 50 MCG/ACT nasal spray Administer 1 spray into each nostril Daily Shake gently. Before first use, prime pump. After use, clean tip and replace cap.Active cetirizine (ZyrTEC) 10 MG tablet Take 10 mg by mouthActive torsemide (Demadex) 10 MG tablet Take 10 mg by mouth DailyActive montelukast (Singulair) 10 MG tablet Indications:Chronic frontal sinusitisTake 1 tablet (10 mg) by mouth at bedtime 90 tablet 311//864070/5Active traZODone (Desyrel) 50 MG tablet 03/28/2024ctive omeprazole (PriLOSEC) [address] capsule 05/20/2024tive metoprolol succinate XL (Toprol-XL) 25 MG 24 hr tablet Take by mouth Do not crush or chew.Active tolterodine (Detrol) 1 MG tablet Take 1 mg by mouth in the morning and 1 mg before bedtime.Active nortriptyline (Pamelor) 10 MG capsule Indications:Bilateral carpal tunnel syndromeTake 1 capsule (10 mg) by mouth at bedtime 30 capsule 11010/23//ctive thiamine (Vitamin B-1) 100 MG tablet Indications:Bilateral carpal tunnel syndromeTake 1 tablet (100 mg) by mouth Daily 30 tablet 11010/23/ctive Active Problems ProblemNoted DateDiagnosed MrhvMymbv-sc-udlxqmo kidney xmgghl3810/23/2024llergic jpltvlun55/23/1965Toxbbw99/23/2025rthritis of left hip10/23/2024arpal tunnel syndrome of left wrist10/23/2024hemotherapy-induced peripheral neuropathy 10/23/2024Hip pain10/23/2024hronic HFrEF (heart failure with reduced ejection fraction)10/23/2024hronic pain10/23/2024hronic riysaettargf29/23/2025hronic venous insufficiency of lower hrzzhhtuu14/23/9438Rrqmgbjpy36/23/2025Degenerative arthritis of left foot10/23/20246966Zhtqnxjb29/23/2025Difficulty piyegny6310/23/2024 Drug-induced bpmlworxzjonek12/23/9581Dxeg34/23/2025History of lumbar fusion 10/23/2024History of total left knee kswkxvpbcan35/23/4612Tzbwywefwpb79/23/2025 Complete tear of left rotator cuff10/23/2024Left foot pain10/23/2024Lumbar stenosis without neurogenic yjioocrxewyg71/23/2025Mild yxoczkarin46/23/2025Nasal polyp, nyealhkhh23/23/2025Neck pain10/23/2024Nocturnal leg kxroav3510/23/2024 Orthostatic vltphjorkcl76/23/3749Nlrixgjhvnbgdv75/23/1813Ekaaxeougftf88/23/2025 Other low back pain10/23/2024Pain of right sacroiliac joint10/23/2024Pes anserinus bursitis of left knee10/23/2024Postoperative pain10/23/2024Internal derangement of left yquigpri99/23/2025Internal derangement of right shoulder 10/23/20243553Txdrrrapeeezmclqpp74/23/2025S/P left rpkaymndlw90/23/2025Inflammation of right sacroiliac joint10/23/20247466Wmaqbmofy58/23/2025ervical spondylosis with clohrftzscsqa46/23/2025Lumbar adjacent segment disease with spondylolisthesis 10/23/2024Lumbar tafpnozvdfk15/23/2025Spondylolisthesis, lumbar evdgzi0310/23/2024 Tinnitus of both ears10/23/2024Unspecified rotator cuff tear or rupture of right shoulder, not specified as tylvrmcfe89/23/2025Unsteady gait when walking 10/23/2024ilateral carpal tunnel okesagvk75/23/2025Never smoked tobacco 07/15/2023Keratoconjunctivitis sicca of both eyes not specified as Sjogren's 06/09/2023Left ventricular systolic hlezzylzkxw96/16/0686Zuckd73/31/2023MI 28.0-28.9,adult02/28/20239788Lzovbe49/29/2023hest pain02/28/2023Essential vyeyxltonjmo04/29/2023Left bundle branch block (LBBB)02/28/2023Mitral luxjquevnsplz16/29/2023rimary open angle glaucoma (POAG) of both eyes, mild stage02/26/2023CO (posterior capsular opacification), ydsifyire78/27/2023 Obesity, Class I, BMI 30-34.9006/18/2020hronic kidney pgmzhrv9606/03/2020GERD (gastroesophageal reflux disease)06/03/2020History of breast ndiuyi4610/09/2014 Idiopathic progressive zkowvburzp74/28/2012Malignant neoplasm of female breast 06/15/2011nxiety state11/16/2007symptomatic varicose veins11/16/2007enign hypertensive heart disease without congestive heart kzzgguy5411/16/2007Generalized epzhjdpipgatfr17/16/2008Irritable bowel mfweegpc91/16/2008Pure ikflkcihesflkzlsdbcq56/16/2008Syncope and ulmhzytb35/16/2008 Resolved Problems ProblemNoted DateDiagnosed DateResolved DateDry eyes/11/2023 Encounters DateTypeDepartmentCare OjiqVsdqqsksajq80/13/2025 2:50 PM EDTAncillary Procedure [facility] [address] [place] [address] 02/12/2025 2:45 PM EDTOffice Visit [facility] [address] [place] [address] Dean Ren PA Acute pain of right shoulder (Primary Dx); Rotator cuff arthropathy of right shoulder; Subacromial impingement of right vdvufjnn87/13/2025amboo flowsheet [facility] [address] [place] [address] Dean Ren PA 02/12/2025Travelfrom Last 3 Months Immunizations ImmunizationAdministration DatesNext DueInfluenza, High Dose Seasonal, Preservative Free01/29/2020,02/17/2018,02/02/2017Influenza, High-dose Seasonal, Quadrivalent, Preservative Free01/28/2021,01/29/2020Influenza, Seasonal, Quadrivalent, Pqnvjdwigh35/14/2022Influenza, Ejcizogbhbv58/25/2012Influenza, injectable, nevdhdjjquio61/01/2016Influenza, injectable, quadrivalent, preservative free01/14/2022,02/01/2020,02/17/2019,06/09/2017,02/16/2017, 02/10/2017,05/05/2016,04/02/2016Influenza, seasonal, dfirfpwhgx56/01/2022Moderna SARS-CoV-2 Ocepdlzggln57/08/2023Pneumococcal Conjugate PCV 13005/11/2022, 12/30/2016Pneumococcal Polysaccharide GBHC9360/,02/08/2017,05/03/2015, 05/03/2013,01/31/2013,06/27/20113425QZWK-CKG-1 (COVID-19) vaccine, mRNA, spike protein, LNP, bivalent, preservative free, 30 mcg/0.3 mLdose, nicky-sucrose amttkrabvvk38/26/2022Zoster, Omybwwnuoie95/25/2021,02/28/2020Zoster, live 01/31/2014 Family History Medical HistoryRelationNameCommentsLeukemiaBrotherCancerFatherClement Pink Testicular cancerFatherClement BarnesBreast cancerMotherJosephine RedingerCancer MotherJosephine RedingerGlaucomaMotherJosephine RedingerHearing lossMother Alejandra RedingerRelationNameStatusCommentsBrotherFatherClement BarnesDeceased MotherJosephine RedingerAlive Social History Tobacco UseTypesPacks/DayYears UsedDateSmoking Tobacco: NeverSmokeless Tobacco: Never Tobacco Cessation:Counseling Given: Not Answered Alcohol UseStandard Drinks/WeekCommentsYes1 (1 standard drink = 0.6 oz pure alcohol)caffeine intake: 2-3 cups per day of diet cokeCommentsUnknownSex and Gender InformationValueDate RecordedSex Assigned at BirthNot on fileLegal LhoKchest87/15/2023 7:03 PM EDTGender IdentityNot on fileSexual OrientationNot on file Last Filed Vital Signs Vital SignReadingTime TakenCommentsBlood Fovppkza768/6406 11:00 AM EDT Pulse--Temperature--Respiratory Rate--Oxygen Saturation--Inhaled Oxygen Concentration--Bgtgrx31.8 kg (156 lb)10/23/2024 11:00 AM QEQQmsdvu238.5 cm (5' 2 )10/23/2024 11:00 AM EDTBody Mass Index28.5306 11:00 AM EDT Plan of Treatment DateTypeDepartmentCare Team (Latest Contact Info)Eqkdtfamrif53/03/2025 2:15 PM ESTOffice Visit [facility] [address] [place] [phone] Nba Malhotra, DO [address] [place] [address] 03/19/2025 3:15 PM ESTProcedure Visit [facility] [address] [place] [address] Wilfrid Olson, DPM [address] [facility] [place], [place] [address] Health MaintenanceDue DateLast DoneCommentsCT Perhtkesluge36/06/1950Colonoscopy 1949Colorectal Cancer Ttxwbcter41/06/1950FIT-DNA1949FIT1949 FOBT1949 5517Kwzfcsoxjpnjs17/06/1950Pneumococcal Vaccine: 65+ YearsCompleted 05/11/2022, 07/20/2020, 02/08/2017, Additional history existsInfluenza Vaccine Xfftouvrj97/15/2025, 02/25/2024, 01/22/2023, Additional history exists Procedures Procedure NamePriorityDate/TimeAssociated DiagnosisCommentsXR SHOULDER 2+ VIEWS NHKASWiyzxkq12/13/2025 2:47 PM EDT Acute pain of right shoulder from Last 3 Months Results * XR shoulder 2+ views right [...] Brian Ren PAIMG XR PROCEDURES Final Result from Last [address] [place] [id number] Care Teams Team MemberRelationshipSpecialtyStart DateEnd Date Mervin Chanel DO [address] [facility] [place] [phone] PCP - GeneralInternal Medicine09/30/22
--- OUTSIDE RECORDS SUMMARY | 2025-02-20 12:58 | XMS_ITS ---
Author Organization [facility] Address [address] [place] [address] Care Team Providers Care Lead Die Molder Name Role Phone Mervin Chanel Primary Care Provider [phone] Active Problems ProblemNoted DateDiagnosed DateObesity, Class I, BMI 30-34.90/GERD (gastroesophageal reflux disease)06/03/2020 Assessment & Plan (06/03/2020 12:54 PM EST): Assessment: on Prilosec CKD (chronic kidney disease)06/03/2020 Assessment & Plan (06/03/2020 12:56 PM EST): Assessment: per care everywhere. Did have a drop in GFR last fall that improved upon recheck. Will have pre-op labs ordered by surgeon. History of breast nxlyvv6310/09/2014Neuropathy due to chemotherapeutic drug 03/30/2012 Assessment & Plan (06/03/2020 12:54 PM EST): Assessment: on Gabapentin tid Breast wprrbz4403/30/2012 Cancer Staging: Clinical: Unsigned Pathologic:ER -, OK - , HER2 -(T2, N2) - Unsigned Breast cancer, left breastHypercholesteremiaHypertension Assessment & Plan (06/03/2020 12:53 PM EST): Assessment: on Coreg and hctz. BP today 136/90 OsteoarthritisBundle branch block, left Assessment & Plan (06/03/2020 12:54 PM EST): Assessment: chronic. [facility] Mild depressionS/P left mastectomy Current Treatment and Therapy Plans No current plan information found. Past Treatment and Therapy Plans Plan NameStart DateDiscontinue DateTreatment MedicationsDiscontinue ReasonPlan ProviderCyclesCENTRAL LINE FLUSH - ONE TIME02/17/2012No medications scheduled. 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
--- OUTSIDE RECORDS SUMMARY | 2025-02-20 12:58 | XMS_ITS | Clinical Summary ---
Author Organization [facility] Address [address] [place] [address] Care Team Providers Care Quarry Equipment Operator Name Role Phone DaríoMervin Galo FENG Primary Care Provider [phone] Allergies Active AllergyReactionsCriticalityNoted DateCommentsAtorvastatin CalciumItching Qnzgjq8803/05/20117525PjlepgjmudjXoizbLgdu96/03/2011 Medications MedicationSigDispense QuantityRefillsLast FilledStart DateEnd DateStatus fluticasone (FLONASE) 50 mcg/actuation nasal spray 2 Sprays once daily. 01/19/2016Active carvedilol (COREG) 6.25 mg tablet Take 6.25 mg by mouth twice daily with meals.06/18/2016Active omeprazole (PRILOSEC) 20 mg capsule Take 20 mg by mouth once daily.11/24/2016Active baclofen (LIORESAL) 20 mg tablet Take 1 tablet by mouth daily at bedtime.06/03/2020ctive hydroCHLOROthiazide (HYDRODIURIL, ESIDRIX) 25 mg tablet Take 25 mg by mouth once daily.04/17/2020Active ALLERGY RELIEF, CETIRIZINE, 10 mg tablet 02/28/2021ctive traMADol (ULTRAM) 50 mg tablet every 6 hours as needed.03/18/2021ctive gabapentin (NEURONTIN) 300 mg capsule Indications:Malignant neoplasm of left breast in female, estrogen receptor negative, unspecified site of breast(HCC),Neuropathy due to chemotherapeutic drug (HCC)TAKE 1 CAPSULE BY MOUTH IN THE MORNING AND 2 CAPSULES IN THE AFTERNOON AND AT BEDTIME 450 capsule ctive torsemide (DEMADEX) 20 mg tablet Take 1 tablet by mouth every afternoon.05/30/2023ctive gabapentin (NEURONTIN) 300 mg capsule Take 2 capsules by mouth three times a day for 360 days. 540 capsule 504/ctive LISINOPRIL ORAL Take by mouth.Active lisinopril 2.5 mg tablet Take 2.5 mg by mouth once daily.Active Active Problems ProblemNoted DateDiagnosed DateObesity, Class I, BMI 30-34.9006/18/2020GERD (gastroesophageal reflux disease)06/03/2020 Assessment & Plan (06/03/2020 12:54 PM EST): Assessment: on Prilosec CKD (chronic kidney disease)06/03/2020 Assessment & Plan (06/03/2020 12:56 PM EST): Assessment: per care everywhere. Did have a drop in GFR last fall that improved upon recheck. Will have pre-op labs ordered by surgeon. History of breast qyufvd9310/09/2014Neuropathy due to chemotherapeutic drug 03/30/2012 Assessment & Plan (06/03/2020 12:54 PM EST): Assessment: on Gabapentin tid Breast giqtqt1203/30/2012 Cancer Staging: Clinical: Unsigned Pathologic:ER -, ND - , HER2 -(T2, N2) - Unsigned Breast cancer, left breastHypercholesteremiaHypertension Assessment & Plan (06/03/2020 12:53 PM EST): Assessment: on Coreg and hctz. BP today 136/90 OsteoarthritisBundle branch block, left Assessment & Plan (06/03/2020 12:54 PM EST): Assessment: chronic. [facility] Mild depressionS/P left mastectomy Resolved Problems ProblemNoted DateDiagnosed DateResolved DateRectal tumor/ Immunizations ImmunizationAdministration DatesNext DueCOVID-19 original vaccine, age 12+ yr, monovalent (PFIZER-BIONTECH - PURPLE TOP)08/28/2021OVID- original vaccine, full dose, monovalent (MODERNA)05/10/2022influenza (HD-IIV3) vaccine, age 65+ yr, high dose, trivalent, PF (FLUZONE HIGH-DOSE)01/29/2020,02/17/2018,02/02/2017 influenza (HD-IIV4) vaccine, age 65+ yr, high dose, quadrivalent, PF (FLUZONE HIGH-DOSE)01/28/2021influenza (IIV3) vaccine, trivalent (AFLURIA, FLULAVAL, FLUVIRIN, FLUZONE)01/01/2022influenza (IIV4) vaccine, age 6 mo - 64 yr, quadrivalent, PF (AFLURIA, FLUARIX, FLULAVAL, FLUZONE)02/17/2019,06/09/2017, 02/16/2017,05/05/2016,04/02/2016influenza (IIV4) vaccine, quadrivalent (AFLURIA, FLULAVAL, FLUZONE)04/02/2016influenza (LAIV) vaccine, nasal, unspecified ytpcdmnwlff37/14/2022,01/31/2020,02/02/2019,05/05/2016influenza (aIIV4) vaccine, age 65+ yr, quadrivalent, PF (FLUAD QUAD)01/22/2023,01/14/2022influenza vaccine, unspecified /25/2012pneumococcal conjugate (PCV13) vaccine, 13 valent (PREVNAR 13)05/11/2022,12/30/2016,09/16/2015pneumococcal polysaccharide (PPV23) vaccine, 23 valent (PNEUMOVAX 23)07/20/2020,02/08/2017,05/03/2015, 02/21/2014,05/03/2013,01/31/2013,06/27/2011tetanus diphtheria (Td) vaccine, age 7+ yr, 5 Lf tetanus, PF (TENIVAC)02/21/2014zoster (RZV) vaccine, recombinant (SHINGRIX)05/27/2020,02/28/2020zoster (ZVL) vaccine, live (ZOSTAVAX)05/27/2020, 02/28/2020,01/31/2014 Family History Medical HistoryRelationCommentsCancerFathertesticularBreast CancerMaternal Aunt deceasedBreast CancerMotherBreast CancerOther3 maternal first cousin; 2 RelationStatusCommentsFatherDeceasedMaternal AuntMotherOther Social History Tobacco UseTypesPacks/DayYears UsedDateSmoking Tobacco: NeverSmokeless Tobacco: NeverAlcohol UseStandard Drinks/WeekCommentsYes0 (1 standard drink = 0.6 oz pure alcohol)very seldomPHQ-2AnswerDate RecordedPHQ-2 dqoqk9944Area Deprivation IndexAnswerDate RecordedNational Score (1-100), lower number is lower lojg929505/18/2023State Score (1-10), lower number is lower oili46005/18/2023 Data from: https://www.neighborhoodatlas.[facility].edu/. Last address used for qztaxseccbu[address] [facility] [facility]4CommentsNoSex and Gender InformationValueDate RecordedSex Assigned at BirthNot on fileLegal SexFemale 04/03/2012 9:57 AM ESTGender IdentityNot on fileSexual OrientationNot on file Last Filed Vital Signs Vital SignReadingTime TakenCommentsBlood Yxazesfg904/5704 11:04 AM EDT Rptma8358 11:04 AM KNPGrvkgnebmgu31.3 ??C (97.4 ??F)08/21/2024 11:04 AM EDTRespiratory Yexj240408/21/2024 11:04 AM EDTOxygen Crbxykjsmw62%08/21/2024 11:04 AM EDTInhaled Oxygen Concentration--Mjatcg63.7 kg (164 lb 10.9 oz)08/21/2024 11:04 AM EZXKnpxxu432.5 cm (5' 2.01 )06/22/2023 1:28 PM ESTBody Mass Index30.11 06/22/2023 1:28 PM EST Plan of Treatment Health MaintenanceDue DateLast DoneCommentsAnnual PCP Team Chronic Disease Visit 12/07/1967Anxiety Tqywulwrw09/06/1968Hepatitis C Exkmgbcpp71/06/1968CT Ovwqmnblaxzk43/06/1995Cologuard (FIT-DNA)12/06/19941839Bgswcfiljye78/06/1995 Colorectal Cancer Hiptqfnui07/06/1995Fecal Occult Blood1994Lipid Screening 12/06/19947345Kbygocmvseqtl23/06/1995DTaP,Tdap,Td Vaccine (1 - Tdap)02/22/2014 02/21/2014Medicare Annual Wellness Visit12/01/2014Bone Density Screening 2014dvance Directive Pdofywbukp05/01/2025RSV Vaccine (1 - 1-dose 75+ series)2024ovid-19 Vaccine ( season)5001/22/2023, 05/10/2022, 02/25/2022, Additional history existsInfluenza Vaccine (#1) 51, 01/22/2023, 01/14/2022, Additional history exists Hemoglobin/Qdgkhyhket74/21/271454/, 06/22/2023, 05/19/2022, Additional history existsSerum Beyncvszbf07/21/261820/, 06/22/2023, 05/19/2022, Additional history existsDiabetes Uwtnrtbvi75/21/681778/, 06/22/2023, 05/19/2022, Additional history existsShingrix FwjathgUeyosnymp30/25/2021, 05/27/2020, 02/28/2020, Additional history existsPneumococcal Vaccine: 50+ Vzhvjjjvh62/09/2023, 07/20/2020, 02/08/2017, Additional history exists Medical Devices ImplantedTypeAreaManufacturerDevice [facility]f Expiration DateModel / Serial / GxfGmj-Oj-Z-Kind Implant - [id number] Implanted:Qty: 1 on 06/26/2011 at [facility] A BUILDINGImplantLeft: BreastMENTOR JOAN [id number] / / [id number]:[place] CPX3 Med Height Tissue AphwbanrBgj-Fl-Z-Kind Implant - [id number] Implanted:Qty: 1 on 04/08/2012 at [facility] A BUILDINGImplantRight: BreastALLERGAN INC 11/07/201510-210 / [id number] / N/ADescription:Emma Silicone Filled Breast OdqezrbYbn-Gs-O-Kind Implant - [id number] Implanted:Qty: 1 on 04/08/2012 at [facility] A BUILDINGImplantLeft: BreastALLERGAN INC 07/07/201620-800 / [id number] / N/ADescription:Emma Silicone Filled Breast ImplantExp Tiss 550ml Styl 7200 Med - [id number] [facility]: Breast [employer]04/30/97241048430 / / [id number] Brst 375ml Styl 20 Smth - [id number] Implanted:Qty: 1 on 03[facility]17/2013 [facility] BreastRight: Breast [employer] BREAST DIV03/17/510022993 / [id number] / [id number]:smooth round high profileImp Brst 700ml Styl 20 Smth - [id number] Implanted:Qty: 1 on 03[facility]17/2013 [facility] / BreastLeft: Breast [employer] BREAST DIV12/15/944079803 / [id number] / [id number]:smooth round high profileExplantedTypeAreaManufacturerDevice formerly [facility] Expiration DateModel / Serial / NqtGjm-Bj-Y-Kind Implant - [id number] Explanted:Qty: 1 on 06/26/2011 [facility]plantLeft: BreastALLERGAN INC 11/23/20149363627GW-59 / [id number] / 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 Moderate height Procedures Procedure NamePriorityDate/TimeAssociated DiagnosisCommentsCBC + DIFFRoutine 08/21/2024 11:00 AM EDT Malignant neoplasm of upper-outer quadrant of left breast in female, estrogen receptor negative (HCC) COMPREHENSIVE METABOLIC JEGATGwnsfgj57/21/2025 11:00 AM EDT Malignant neoplasm of upper-outer quadrant of left breast in female, estrogen receptor negative (HCC) from Last 3 Months or Most Recently Relevant to Health Maintenance Results * (ABNORMAL) COMPREHENSIVE METABOLIC PANEL (08/21/2024 11:00 AM EDT)Component ValueRef RangeTest MethodAnalysis TimePerformed AtPathologist Signature Protein, Total6.96.3 - 8.0 g/dL08/21/2024 12:22 PM EDTNORTASCENS[facility] LABAlbumin4.13.9 - 4.9 g/dL08/21/2024 12:22 PM EDTNORTASCENSION [facility] LABCalcium, Total10.18.5 - 10.2 mg/dL08/21/2024 12:22 PM EDTNORTASCENSION STANDISH [facility] LABBilirubin, Total0.40.2 - 1.3 mg/dL 08/21/2024 12:22 PM ED[facility] LABAlkaline Fneogazbvwv2711 - 123 U/L08/21/2024 12:22 PM [facility] ICEOZT9466 - 35 U/L08/21/2024 12:22 PM [facility] WUNDQY353 - 38 U/L08/21/2024 12:22 PM [facility] GLYOvjjobg400(H)74 - 99 mg/dL08/21/2024 12:22 PM [facility] LABComment: The [place] Diabetes Association (ADA) provides guidance for cutoff values for fasting glucose andrandom glucose. The ADA defines fasting as no [...] Standards of Medical Care in Diabetes 2016, [place] Diabetes Association. Diabetes Care. 2016.39(Suppl 1). BUN61(H)7 - 21 mg/dL08/21/2024 12:22 PM [facility] Creatinine1.33(H)0.58 - 0.96 mg/dL08/21/2024 12:22 PM [facility] QGQHwmttx347215 - 144 mmol/L08/21/2024 12:22 PM [facility] LABPotassium4.83.7 - 5.1 mmol/L08/21/2024 12:22 PM EDT [facility] JIDAywgyvkl87301 - 107 mmol/L08/21/2024 12:22 PM [facility] NOODT44879 - 30 mmol/L08/21/2024 12:22 PM [facility] LABAnion Ogx278 - 15 mmol/L08/21/2024 12:22 PM [facility] LABEstimated Glomerular Filtration Rate42(L)>=60 mL/min/1.73m 08/21/2024 12:22 PM [facility] LABComment:Estimated Glomerular Filtration Rate (eGFR) is calculated using the 2020 CKD-EPI creatinine equation. This equation utilizes serum creatinine, sex, and age as parameters. The creatinine assay has traceable calibration to isotope dilution- mass spectrometry. Refer to KDIGO guidelines for clinical interpretation. In patients with unstable renal function, e.g. those with acute kidney injury, the eGFRmay not accurately reflect actual GFR.Specimen (Source)Anatomical Location / LateralityCollection Method / VolumeCollection TimeReceived TimeBloodBLOOD SPECIMEN / UnknownVenipuncture / Pncqhml5808/21/2024 11:00 AM EDT08/21/2024 11:01 AM EDT Narrative Authorizing ProviderResult TypeResult StatusBrarmando Mercado MDLABORATORY Final ResultPerforming OrganizationAddressCity/State/ZIP CodePhone Number [facility] [address] [place] [address] * (ABNORMAL) COMPLETE BLOOD COUNT AND DIFFERENTIAL (08/21/2024 11:00 AM EDT) ComponentValueRef RangeTest MethodAnalysis TimePerformed AtPathologist SignatureWBC7.713.70 - 11.00 k/08/21/2024 11:09 AM [facility] LABRBC4.073.90 - 5.20 m/08/21/2024 11:09 AM [facility] NRROqotsabayc67.1(L)11.5 - 15.5 g/dL08/21/2024 11:09 AM [facility] WFEAvhoznyviz90.2(L)36.0 - 46.0 % 08/21/2024 11:09 AM [facility] OOCLPO48.080.0 - 100.0 PR08/21/2024 11:09 AM [facility] WLJXPI67.3 26.0 - 34.0 pg08/21/2024 11:09 AM [facility] LABMCHC 32.530.5 - 36.0 g/dL08/21/2024 11:09 AM [facility] LABRDW-CV15.7(H)11.5 - 15.0 %08/21/2024 11:09 AM [facility] LABPlatelet Qbjya201631 - 400 k/08/21/2024 11:09 AM [facility] LABMPV9.79.0 - 12.7 PR08/21/2024 11:09 AM [facility] LABNeutrophils %63.5%08/21/2024 11:09 AM [facility] LABAbs Neut4.901.45 - 7.50 /08/21/2024 11:09 AM EDT [facility] LABLymphocytes %20.4%08/21/2024 11:09 AM EDT [facility] LABAbs Lymph1.571.00 - 4.00 k/08/21/2024 11:09 AM [facility] LABMonocytes %9.7%08/21/2024 11:09 AM [facility] LABAbs Mono0.75<0.87 k/uL 08/21/2024 11:09 AM [facility] LABEosinophils %5.2% 08/21/2024 11:09 AM [facility] LABAbs Eosin0.40<0.46 k/uL08/21/2024 11:09 AM [facility] LABBasophils %0.8 %08/21/2024 11:09 AM [facility] LABAbs Baso0.06<0.11 k/uL08/21/2024 11:09 AM [facility] LABImmature Granulocytes %0.4%08/21/2024 11:09 AM [facility] LAB Abs Immature Gran0.03<0.10 k/uL08/21/2024 11:09 AM [facility] LABNRBC0.0/100 WBC08/21/2024 11:09 AM [facility] LABAbsolute nRBC<0.01<0.01 k/08/21/2024 11:09 AM [facility] LABDiff NdpdQhut93/21/2025 11:09 AM [facility] LABSpecimen (Source)Anatomical Location / Laterality Collection Method / VolumeCollection TimeReceived TimeBloodBLOOD SPECIMEN / UnknownVenipuncture / Iavwdsb4808/21/2024 11:00 AM EDT08/21/2024 11:01 AM EDT Narrative Authorizing ProviderResult TypeResult StatusBrarmando Mercado MDLABORATORY Final ResultPerforming OrganizationAddressCity/State/ZIP CodePhone Number [facility] [address] [place] [address] from Last 3 Months or Most Recently Relevant to Health Maintenance Insurance Advance Directives TypeDate RecordedPatient RepresentativeExplanationAdvance Directive(s)06/07/2020 2:34 PMAdvance Directive(s)06/07/2020 2:34 PM Care Teams Team MemberRelationshipSpecialtyStart DateEnd Date Mervin Chanel DO PCP - GeneralInternal Medicine06/04/20
--- OUTSIDE RECORDS SUMMARY | 2025-02-20 12:58 | XMS_ITS | Encounter Summary ---
Author Organization [facility] Address [address] [facility] [place] [address] Care Team Providers Care Junior Business Analyst Name Role Phone Mervin Chanel Primary Care Provider [phone] Encounter Details DateTypeDepartmentCare Team (Latest Contact Info)Wfktxsjnety71/13/2025amboo flowsheet [facility] [address] [facility] [address] [place] [address] Dean Ren, ANA [address] [place] [address] Social History Tobacco UseTypesPacks/DayYears UsedDateSmoking Tobacco: NeverSmokeless Tobacco: NeverAlcohol UseStandard Drinks/WeekCommentsYes1 (1 standard drink = 0.6 oz pure alcohol)caffeine intake: 2-3 cups per day of diet cokeCommentsUnknownSex and Gender InformationValueDate RecordedSex Assigned at BirthNot on fileLegal KzjFxkhcp55/15/2023 7:03 PM EDTGender IdentityNot on fileSexual OrientationNot on filedocumented as of this encounter Plan of Treatment DateTypeDepartmentCare Team (Latest Contact Info)Mccevtlebuw34/03/2025 2:15 PM ESTOffice Visit [facility] [address] [place] [phone] Nba Malhotra DO [address] [place] [address] 03/19/2025 3:15 PM ESTProcedure Visit [facility] [address] [facility] [place] [address] Wilfrid Olson, DPDerrek [address] [place]án[place] [address] documented as of this encounter Visit Diagnoses Not on filedocumented in this encounter Care Teams Team MemberRelationshipSpecialtyStart DateEnd Date Mervin Chanel DO [address] [place] [address] PCP - GeneralInternal Medicine09/30/22documented as of this encounter
--- OUTSIDE RECORDS SUMMARY | 2025-02-20 13:09 | XMS_ITS | CCD ---
Author Organization [facility] Inform ion Partnership [facility] Care Team Providers Care Complex Human Resources Manager Name Role Phone BRYCE HENDRICKSON Unavailable Unavailable SYLVESTER JACOB Unavailable Unavailable DO Sylvester Jacob Primary Care Provider MD Devin Moreau Attending Provider DO Sylvester Jacob Primary Care Provider MD Devin Moreau Attending Provider Devin Moreau Unavailable Artie Blackburn Unavailable Sylvester Jacob Unavailable Unavailable Unavailable DO Sylvester Jacob Primary Care Provider MD Devin Moreau Attending Provider DO Sylvester Jacob Primary Care Provider [phone] MD Devin Moreau Attending Provider Sylvester Jacob DO Primary Care Provider Sylvester Jacob Primary Care Unavailabl e Jonatan, Dr. Bryce Buckley Attending Sangeeta vailable Jonatan, Dr. Bryce Buckley Referring Sangeeta vailable Sylvester Jacob Primary Care Unavailabl e Hendrickson, Dr. Bryce Buckley Attending Sangeeta vailable Jonatan, Dr. Bryce Buckley Referring Sangeeta vailable Sylvester Jacob Unavailable Vivi Biggs Unavailable LAVON, DR EVELIN Collado Consulting Unavailable NOHEMI, DR AJAY Anglin Admitting Unavailable NIDIA, DR PHAN Primary Care Unavailable NOHEMI, DR AJAY Anglin Attending Unavailable NOHEMI, DR AJAY Anglin Consulting Unavailable ALTA, DR TAMY Becerra Consulting Unavailable APLINGKIRSTIE Attending Unavailable APLINGKIRSTIE Admitting Unavailable BALL, DR PHAN Primary Care Unavailable APLING, KIRSTIE Madsen Consulting Unavailable BALL, DR PHAN Primary Care Unavailable BALL, DR PHAN Admitting Unavailable BALL, DR PHAN Attending Unavailable BALL, DR PHAN Consulting Unavailable REINECK, DR YOSHI Mills Consulting Unavailabl e REINECK, DR YOSHI Mills Admitting Unavailabl e BALL, DR PHAN Primary Care Unavailable REINECK, DR YOSHI Mills Attending Unavailabl e BALL, DR PHAN Primary Care Unavailable NADERER, DR JARROD Dey Consulting Unavailable TRISH ., VIVI Attending Unavailable TRISH ., VIVI Admitting Unavailable GEORGIA, SALINA Consulting Unavailable WILSON, EMORY Consulting Unavailable TRISH ., VIVI Consulting Unavailable BALL, DR PHAN Primary Care Unavailable BALL, DR PHAN Admitting Unavailable BALL, DR PHAN Attending Unavailable BALL, DR PHAN Consulting Unavailable Ball, Dr. Phan silvina Primary Care Bryce Bucio Attending Unavailable Nidia, Dr. Sylvester Braden Primary Care Bryce Bucio Attending Unavailable DO Sylvester Jacob Primary Care Provider MD Devin Moreau Attending Provider Sylvester Jacob DO Primary Care Provider Radha Moreau Unavailable DO Sylvester Jacob Primary Care Provider [phone] MD Devin Moreau Attending Provider MD Radha Moreau Attending Provider NON STAFF Primary Care Provider UnavailMD Jraed Allen Other Provider [phone] MD Saman Marino Admit Provider MD Saman Marino Attending Provider PROVIDER, UNKNOWN Attending Unavailable PROVIDER, UNKNOWN Admitting Unavailable MD Devin Moreau Attending Provider DO Sylvester Jacob Primary Care Provider JERRICA Biggs Attending Provider Sylvester Jacob DO Primary Care Provider Sylvester Jacob DO Primary Care Provider NON STAFF Primary Care Provider UnavailJERRICA Berg Attending Provider DO Sylvester Jacob Primary Care Provider MD Devin Moreau Attending Provider MD Artie Blackburn Attending Provider Nidia, DO Phan Primary Care Provider MD Devin Moreau Attending Provider Ball, DO Phan Primary Care Provider MD Artie Blackburn Attending Provider Sylvester Jacob DO Primary Care Provider Ball, DO Sylvester Primary Care Provider MD Devin Moreau Attending Provider Sylvester Jacob MD Primary Care Provider Sylvester Jacob DO Primary Care Provider Stewart OWENS, Romel Torres Emergency Provider Nidia DO Sylvester Primary Care Provider Sheila MARTELL, Josh Admit Provider Josh Sosa MD Attending Provider [phone] Danyelle Mathews MD Other Provider Regina Garcia DO Emergency Provider FriIsaiah nair DO Admit Provider Isaiah Mejia DO Attending Provider Sherin Arellano MD Other Provider Zenobia Carrasco MD Other Provider Saman Marino MD Other Provider Marley Mendieta APRN Other Provider Iglesia Garza DO Other Provider [phone] Jared Louis MD Other Provider Landon Whitfield MD Attending Provider Douglas MARTELL, Emory Anglin Attending Provider Sylvester Jacob DO Primary Care Provider Regina Garcia DO Emergency Provider Roberto DO, Isaiah Admit Provider [phone] Sherin Arellano MD Other Provider Landon Whitfield MD Attending Provider Luna MARTELL, Zenobia Other Provider Saman Marino MD Other Provider Marley Mendieta APRN Other Provider Belmarshall DO, Iglesia Lamas Other Provider [phone] Heriberto MARTELL, Jared Palacios Other Provider Douglas MARTELL, Emory Anglin Attending Provider Nidia , Sylvester Primary Care Provider Sylvester Jacob DO E Primary Care Provider Nidia , Sylvester Primary Care Provider Sylvester Jacob DO Attending Provider Jose , Regina Anglin Emergency Provider Sheila MARTELL, Josh Admit Provider Sheila MARTELL, Josh Attending Provider Sheila MARTELL, Josh Other Provider Carly Cuevas APRN Other Provider Josue Cosme MD Other Provider Alexa MARTELL, Lloyd Carlin Other Provider Panda Dietrich MD Other Provider Charlie Garcia DO Other Provider Sam DORomana Other Provider [phone] Joshua MARTELL, Cherise Other Provider Casimiro Booth MD Other Provider Iain MARTELL, Sorin Other Provider Tino Gaffney MD Other Provider [phone] Danyelle Mathews MD Other Provider Juan David METAL BONDING HELPER-C, Kimmy Other Provider Unavailable Adan MARTELL, Sherin Other Provider Connor MARTELL, Hung Other Provider Sin Martinez MD Attending Provider Juan MARTELL, Sin Torres Other Provider Nahid MARTELL, Landon Other Provider Liza Saldana RN Other Provider Unavailable Francis Butterfield DO Other Provider Jonatan MARTELL, Bryce Other Provider Akila MARTELL, Jayro Peres Other Provider Leighton MARTELL, Madan Other Provider Kelvin MARTELL, Allan Other Provider Carol Ann Bueno APRN Other Provider [phone] Lis Alcocer MD Other Provider Keshav MARTELL, Rosalinda Benedict Other Provider Donis MARTELL, Yo Other Provider Nazia [facility], Priti Lamas Other Provider Iraj Juan MD Attending Provider JACOB MERCADO Referring Unavailable SYLVESTER JACOB Primary Care Unavailable JACOB MERCADO Attending Unavailable JACOB MERCADO Referring Unavailable SYLVESTER JACOB Primary Care Unavailable Jared Louis MD Admit Provider [phone] Jared Louis MD Other Provider Deana LAKE, Regina Other Provider Unavailable Theresa Velez RN Other Provider Unavailable Magi Young RN Other Provider Unavailable Blanca Arvizu RN Other Provider Unavailable Nava Oconnell RN Other Provider Unavailable Areli Marino RN Other Provider Unavailable Mary Marc MD Other Provider Cb Adam DO Other Provider Nohelia MD, Dylan Other Provider [phone] Nusratmarquise FENG Freddy Other Provider [phone] Tiera MARTELL, Guero Other Provider Alex MARTELL, Yary Other Provider [phone] Leo FENG, Isaiah Other Provider Robin MARTELL, Servando Other Provider Unavailable Roxie Love APRN Other Provider [phone] Emily MARTELL, Jasmine Other Provider Jorge L MARTELL, Sterling Other Provider Aly MARTELL, Israel Other Provider Unavailable Gage Pena MD Other Provider Isaiah Mejia DO Other Provider [phone] Jeanna MARTELL, Wallace Other Provider Soha MARTELL, Yonas Other Provider Marya METAL BONDING HELPER-C, Julito Torres Other Provider Daniel ANTONY, Leonardo Anglin Other Provider Unavailable Evangelist MARTELL, Zak Rosenthal Other Provider Demarco MARTELL, Joaquin Other Provider Maynor Conway MD Other Provider Davian MARTELL, Dale Other Provider Unavailable Meño Saldana MD Other Provider Tatiana Sibley DO Other Provider Byron Dave DO Other Provider Sheila ANTONY, Xi Other Provider Zechariah Mccarthy DO Other Provider Dorita MARTELL, Ambika Anglin Other Provider [phone] Radhika Bueno APRN Other Provider Lloyd ANTONY, Tammi Hernández Other Provider Rodo MARTELL, Kaveh Other Provider Unavailable Max Haji MD Other Provider Lake DO, Nathaniel T Other Provider Chevy DO, Hortensiagaurav Other Provider Zoraida MARTELL, Caesar Campos Other Provider Deborah Avina MD Other Provider Belem Mauro APRN Other Provider Unavailable Sung MARTELL, Lisette Other Provider Saman Duran MD Other Provider Surya MARTELL, Servando Walters Other Provider Lin ANTONY, Abi Dewitt Other Provider Maria C Martinez APRN Other Provider Rocío LAKE, Aura Other Provider Unavailable Marley Mendieta APRN Attending Provider Heriberto MARTELL, Jared Palacios Attending Provider Sylvester Jacob DO Primary Care Provider Sylvester Jacob DO Attending Provider Josh Sosa MD Admit Provider Unavailable Josh Sosa MD Other Provider Unavailable Sam DO Romana P Other Provider Unavailable Jayro Wilburn MD Other Provider Unav raulable Keshav MARTELL, Rosalinda Benedict Other Provider Unajarad Dykes MD, Yo Other Provider Unavailable Sterling Coats MD Other Provider Unavailable Maynor Conway MD Other Provider Unavailable Meño Saldana MD Other Provider Unavailable Tatiana Sibley DO Other Provider Unavailable Lake DO, Nathaniel T Other Provider Unavailable Gwen Burk CMA Attending Provider Unavaila cat Mathews MD, Danyelle Attending Provider Sylvester Jacob DO Primary Care Provider Sylvester Jacob DO Attending Provider Josh Sosa Admitting Unavailable Josh Sosa Attending Unavailable Sylvester Jacob Primary Care Unavailable Danyelle Mathews Consulting Unavailable Sylvester Jacob Primary Care Unavailable Zak Blanca Attending Unavailab Liza Li Consulting Unavailable Josh Sosa Admitting Unavailable Liza Saldana Consulting Unavailable Francis Butterfield Consulting Unavailable Bryce Hendrickson Consulting Unavailable Jayro Wilburn Consulting Unavail able Madan Manzanares Consulting Unavailable Allan Warren Consulting Unavailab Carol Ann Edmond Consulting Unavailable Lis Alcocer Consulting Unavailable Keshav, Rosalinda Andieb Consulting Unavailab Yo Monroe Consulting Unavailable Priti Mandujano Consulting Unavailable Sin Martinez Consulting Unavailable Danyelle Mathews Consulting Unavailable Kimmy Fall Consulting Unavailable Sherin Arellano Consulting Unavailable BakHung jansen Consulting Unavailable Kuflo, Zenobia Consulting Unavailable Saman Marino Consulting Unavailable Marley Mendieta Consulting Unavailable Iglesia Garza Jr Consulting UnavailJared Allen Consulting Unavaila cat [facility] Unavailable Emory Cole II Attending UnavailEmory Best II Admitting Unavailabl galo [facility] Unavailable Devin Moreau Attending Unavailable Devin Moreau Admitting Unavailable [facility] Unavailable Danyelle Mathews Attending Unavailable Reid, Essam Admitting Unavailable [facility] Unavailable Jared Louis Attending Unavaila Regina Nelson Consulting Unavailable Jared Louis Admitting Unavaila cat Velez Theresa Consulting Unavailable Magi Young Consulting Unavailable Blanca Arvizu Consulting Unavailable Nava Oconnell Consulting Unavailable Areli Marino Consulting Unavailable Mary Marc Consulting Unavailable Cb Adam Consulting Unavailable Dylan Pozo Consulting Unavailable Freddy Arnold Consulting UnavailGuero Melgar Consulting Unavailable Yary Johnson Consulting Unavailable Isaiah Bailey Consulting Unavailable Servando Kelly Consulting Unavailable Roxie Love Consulting UnavailJasmine Gaston Consulting Unavailable Sterling Coats Consulting Unavailable Israel Lu Consulting Unavailable Gage Pena Consulting Unavailable Isaiah Mejia Consulting Unavailable Wallace Meeks Consulting Unavailable Yonas Hoyos Consulting Unavailable Julito Malhotra Consulting Unavailable Leonardo Sanchez Consulting Unavailable Zak Blanca Consulting Unavailab Joaquin Crook Consulting Unavailable Maynor Conway Consulting Unavailable Dale Marcelo Consulting Unavailable Meño Saldana Consulting Unavailable Tatiana Sibley Consulting Unavailable Byron Dave Consulting Unavailable Xi Sosa Consulting Unavailable Zechariah Mccarthy Consulting Unavailable DaromaAmbika becerra Consulting Unavailable Radhika Bueno Consulting Unavailable Tammi Giordano Consulting Unavailable Kaveh Koehler Consulting Unavailable Max Haji Consulting Unavailable Nathaniel Lake Consulting Unavailable Elizabeth Reece Consulting Unavailable Caesar Conway Consulting Unavailable Deborah Avina Consulting Unava Belem Cannon Consulting Unavailable Lisette Almaraz Consulting Unavailable Josh Sosa Consulting Unavailable Saman Duran Consulting Unavailable Servando London Consulting Unavailable Landon Whitfield Consulting Unavailable Abi Ceballos Consulting Unavailable Bolzaantonina-Maria C Jimenez Consulting Unavaila Aura Perez Consulting Unavailable Landon Whitfield Attending Unavailable Sylvester Jacob Primary Care Unavailable Sherin Arellano Consulting Unavailable Isaiah Mejia Admitting Unavailable Zenobia Carrasco Consulting Unavailable Saman Marino Consulting Unavailable Marley Mendieta Consulting Unavailable Iglesia Garza Jr Consulting UnavailJared Allen Consulting Unavaila BRYCE Jerry Attending Unavailable BRYCE HENDRICKSON Referring Unavailable SYLVESTER JACOB Primary Care Unavailable BRYCE HENDRICKSON Attending Unavailable BRYCE HENDRICKSON Referring Unavailable SYLVESTER JACOB Primary Care Unavailable Sylvester Jacob DO Primary Care Provider ALLEN ENCARNACION Attending Unavailable TAMY KHAN Attending Unavailable TAMY KHAN Attending Unavailable TAMY KHAN Referring Unavailable BRAN LINDA Attending Unavailable SYLVESTER JACOB Referring Unavailable DICK LEVIN Attending Unavailable CHUCK COPE Attending Unavailable SYLVESTER JACOB Referring Unavailable CHUCK COPE Attending Unavailable MARCE KHAN Attending Unavailable DICK LEVIN Referring Unavailable Sylvester Jacob DO Primary Care Provider BRYCE HENDRICKSON Referring Unavailable SYLVESTER JACOB Primary Care Unavailable Allergies Allergy ClassificationReported Allergen(s)Allergy TypeDate of OnsetReaction(s) FacilityHMG-CoA Reductase Inhibitors (statins) (1 source)atorvastatinDrug Smeqkyj47-40-3577CtkkxUfcwhzlfqKettering Health TroyIodine (and Iodine containting drugs) (1 source)IodineDrug Emkedcj03-34-2232Qwzznvx ReactionHolmes County Joel Pomerene Memorial HospitalPenicillins (antibiotic) (3 sources)PenicillinDrug Pxldhcj06-57-6108Xkritsa Reaction, Comment:Penicillin, [facility] DaytonQuinolones (antibiotic) (1 source)levoFLOXacinDrug Xnegtvy23-90-8774Hcswbfc ReactionHolmes County [facility] Hospital (20 sources)atorvastatin; Translations: [atorvastatin]Drug Ycaliqf36-99-6099 [facility] (20 sources)Penicillins; Translations: [Penicillins]Allergy to substance 57-10-4414JamifRxuuzexefAccess Hospital Dayton (20 sources)Penicillin GDrug Nfugdnl37-89-1468Uwwgrjm, Unknown ReactionHolmes County [facility] (5 sources)atorvastatin; Translations: [Lipitor]Drug AllergyGrand Lake Joint [facility] 600 DO Work Phone: (5 sources)Hmg-Coa Reductase Inhibitors (Statins); Translations: [Statins] Allergy to drug (finding)[facility] 600 DO Work Phone: (7 sources)atorvastatin; Translations: [ATORVASTATIN CALCIUM]Drug Allergy 96-49-1195CspoorqEwrteefxh Clinic (20 sources)IodineDrug Cfutste16-68-3839Dxugtir, Unknown ReactionHolmes County [facility] (1 source)AmoxicillinDrug AllergyC[facility] Repository (1 source)DextroamphetamineDrug AllergyThe [facility] Repository (20 sources)levoFLOXacinDrug AllergyUnknowSaint Luke's East Hospital [employer] Other (20 sources)Penicillin VDrug Pmrrmgr05-01-1791Tnjbbrz:[facility] (1 source)patient allergy list reviewed by nurse or physiciaPropensity to adverse cauvipkaq17-88-1649Wtlzybk:[employer] Other (9 sources)HMG-CoA reductase inhibitor; Translations: [NNDCXIO-HFC-JPM REDUCTASE INHIBITORS]Drug Wanumxg62-02-3160FtrssHqaqqetszhCleveland Clinic [facility] Work Phone: (20 sources)levoFLOXacin; Translations: [levofloxacin]Drug Xqqbnid89-98-5027 Unknown ReactionHolmes County [facility] Medications Current Medications MedicationDrug Class(es)DatesSig (Normalized)Sig (Original)acetaminophen 500 mg oral tablet (20 sources)Start: 54-82-1028yjzw 1 tablet by mouth every four hours as needed for painAcetaminophen 500 mg Tablet Active 500 MG PO Q4H as needed for Pain 0 November 30, 2024 12:00am Complies with drug therapyStart: 04-19-2023 End: 54-45-3666wenz 1 tablet by mouth every four hours as needed for pain Acetaminophen 500 mg Tablet Discontinued 500 MG PO Q4H as needed for Pain 0 April 19, 2023 1:00am November 14, 2024 5:57pmStart: 04-15-2023 End: 60-12-5509keor 2 tablets by mouth every four hours as needed for pain Acetaminophen (Tylenol) 325 mg Tablet Discontinued 650 MG PO Q4H as needed for Mild Pain 0 2022 1:00am April 19, 2023 3:08pmStart: 09-24-2021 End: 14-54-0770hoca 1 tablet by mouth every four hours as needed for pain Acetaminophen 500 mg Tablet Discontinued 500 MG PO Q4H as needed for Pain September 24, 2021 12:00am April 15, 2023 9:14am Take with tramadolStart: 54-09-4226bctz 500 mg by mouth twice dailyAcetaminophen Active 500 MG PO Twice daily September 23, 2021 11:00pm Take with tramadolazithromycin 250 mg oral tablet (3 sources)Macrolide AntimicrobialStart: 75-62-4311Mbxaqlsnyxhv 250 MG as directed Orally daily for 5 days May, Activecalcium carbonate 1500 mg oral tablet (20 sources)take 1 tablet by mouth in the morningcalcium carbonate (Calcium 600) 600 MG tablet Take 600 mg by mouth in the morning and 600 mg in theevening. Take with meals. Activecalcium carbonate 1500 mg / cholecalciferol 0.01 mg oral tablet (20 sources)Vitamin DStart: 15-23-8857ogil 1 tablet by mouth twice dailyCalcium Carbonate-Vitamin D3 (Calcium 600 + D(3)) 600 mg-10 mcg (400 unit) Tablet Active 1 TAB PO Twice daily September 24, 2021 12:00am Complies with drug therapy cetirizine hydrochloride 10 mg oral tablet (20 sources)Histamine-1 Receptor AntagonistStart: 90-15-7120PRHSHXB RELIEF, CETIRIZINE, 10 mg tablet 02/28/2021 Activecholecalciferol 0.025 mg oral capsule (20 sources)Vitamin Dtake 1 capsule by mouth once dailycholecalciferol (Vitamin D-3) 25 MCG (1000 UT) capsule Take 1,000 Units by mouth Daily Activetake 1 capsule by mouth in the morningcholecalciferol (Vitamin D-3) 25 MCG (1000 UT) capsule Take 1,000 Units by mouth in the morning. ActiveCyclosporine (6 sources)Calcineurin Inhibitor ImmunosuppressantStart: 30-49-2848tlsz 1 drop(s) into the eye(s) every twelve hoursCyclosporine 0.05 % Dropperette Active 1 DROPS EYE-BOTH Every 12 hours 0 November 30, 2024 12:00am Complies with drug therapyStart: 52-81-6625sucj 1 drop(s) into the eye(s) every twelve hoursStart: 05-29-2024 End: 74-60-0797xhae 1 drop(s) into the eye(s) in the morningcycloSPORINE (Restasis) 0.05 % ophthalmic emulsion Indications: Keratoconjunctivitis sicca of both eyes not specified as Sjogren's Administer 1 drop into both eyes in the morning and 1 drop before bedtime. 180 mL 3 05/29/2024 08/27/2024 Active dapagliflozin 10 mg oral tablet (10 sources)Sodium-Glucose Cotransporter 2 InhibitorStart: 79-56-1150xzbn 1 tablet by mouth once dailyDapagliflozin Propanediol 10 mg tablet Active 10 MG PO Daily January 09, 2025 4:12pm Complieswith drug therapyStart: 11-14-2024 End: 97-17-8084rovq 1 tablet by mouth once dailyDapagliflozin Propanediol 5 mg Tablet Discontinued 5 MG PO Daily 0 November 14, 2024 12:00am January 09, 2025 4:14pmdocusate sodium 100 mg oral capsule (8 sources)Start: 69-16-8837ouqv 1 capsule by mouth twice daily as needed for constipationDocusate Sodium 100 mg Capsule Active 100 MG PO Twice daily as needed for Constipation 0 October 12:00am Complies with drug therapy Start: 11-30-2024 End: 38-39-3911Vrrwthye Sodium (Enemeez) 283 mg/5 mL Enema Discontinued [address] Daily as needed for Constipation0 November 30, 2024 12:00am December 05, 2024 9:22amfluticasone propionate 0.05 mg/actuat metered dose nasal spray (20 sources)CorticosteroidStart: 01-09-2024 End: 62-99-5011ztyc 2 spray(s) nasal route once daily as needed for congestion Fluticasone Propionate 50 mcg/actuation spray,suspension Active 0 .ROUTE .COMPLEX 48 October 0158:37am USE 2 SPRAYS IN EACH NOSTRIL ONCE A DAY NEEDED FOR NASAL CONGESTION Complies with drug therapyStart: 10-04-2020 End: 67-69-7167Wcqmbyamcqn Propionate 50 mcg/actuation spray,suspension Discontinued 2 SPRAY INTRANASAL Daily as needed for Nasal Congestion December 15, 2023 1:23pm January 09, 2024 8:38amStart: 77-19-4881rqxzmivfmtl (FLONASE) 50 mcg/actuation nasal spray 2 Sprays once daily. 01/19/2016 Active fluticasone (Flonase) 50 mcg/actuation nasal spray As directed Active End: 48-24-3669jfbjuethnbu (Cutivate) 0.05 % cream Apply topically in the morning and before bedtime. 10/23/2024 Discontinued (Therapy completed)take 1 spray(s) nasal route in the morningfluticasone (Flonase) 50 MCG/ACT nasal spray Administer 1 spray into each nostril in the morning. Shake gently. Before first use, prime pump. After use, clean tip and replace cap.. ActiveFluticasone Propionate 50 MCG/ACT USE 2 SPRAYS IN EACH NOSTRIL ONCE DAILY Nasal Once a day for 90 days ActiveFluticasone Propionate 50 MCG/ACT USE 2 SPRAYS IN EACH NOSTRIL ONCE DAILY Nasal Once a day for 90 days ActiveFlonase 50 MCG/ACT SUSP as directed Quantity: 0 Refills: 0 Ordered: 10-Feb-2022 DO ActiveComment on above:2 Sprays once daily. furosemide 20 mg oral tablet (14 sources)Loop DiureticStart: 30-26-5473gdpw 1 tablet by mouth twice daily as needed for edemaFurosemide 20 mg tablet Active 20 MG PO Twice daily as needed for edema 60 January 15, 2025 12:00pm Complies with drug therapyStart: 11-30-2024 End: 49-43-7249tcrp 1 tablet by mouth once dailyFurosemide 20 mg Tablet Discontinued 20 MG PO Daily at 0800 0 November 30, 2024 12:00am January 15, 2025 12:04pmStart: 11-14-2024 End: 68-24-8586mzkz 1 tablet by mouth once dailyFurosemide 40 mg Tablet Discontinued 40 MG PO Daily at 0800 0 November 14, 2024 12:00am November 30, 2024 10:32amStart: 90-84-8365qdwf 1 tablet by mouth every twenty-four hoursFurosemide 20 MG 1 tablet Orally Once a day for 30 days Apr, Activegabapentin 100 mg oral capsule (20 sources)Anti-epileptic AgentStart: 64-78-6987kelx 2 capsules by mouth once dailyGabapentin 100 mg Capsule Active 200 MG PO Daily 0 November 14, 2024 12:00am Complies with drug therapyStart: 07-03-2024 End: 50-58-8738knwo 1 capsule by mouth four times dailyGabapentin 300 mg capsule Discontinued 300 MG PO Four times daily 120 September 29, 2024 11:59am November 14, 2024 3:26pmStart: 07-03-2024 End: 89-92-2437wsbq 2 capsules by mouth twice dailyGabapentin 300 mg capsule Discontinued 600 MG PO Twice daily July 03, 2024 2:50pm July 0355:40pm Start: 06-22-2023 End: 20-65-2745jprj 2 capsules by mouth three times dailyGabapentin 300 mg capsule Discontinued 600 MG PO Three times daily April 04, 2024 3:41pm July 03, 2024 2:56pmStart: 80-06-1663oszy 600 mg by mouth once dailyGabapentin Active 600 MG PO every day at noon September 24, 2021 10:44amStart: 09-24-2021 End: 28-28-0776Ambpeqjsca 300 mg capsule Discontinued MG September 24, 2021 12:00am September 24, 2021 10:46amStart: 09-24-2021 End: 18-63-8827tppa 3 capsules by mouth twice dailyGabapentin 300 mg capsule Discontinued 900 MG PO BID@1400,2199September 24, 2021 12:00am April 3:55pmStart: 61-79-8504xoah 900 mg by mouth twice dailyGabapentin Active 900 MG PO BID@1400,2199September 24, 2021 12:00amStart: 09-24-2021 End: 23-18-9340Epnjkgcfry Discontinued MG September 24, 2021 12:00am September 24, 2021 10:46amStart: 39-89-0933emjn 600 mg by mouth twice dailyGabapentin Active 600 MG PO BID@1400,2199September 24, 2021 12:00amStart: 10-04-2020 End: 71-07-7926croj 1 capsule by mouth once daily in the morningGabapentin 300 mg capsule Discontinued 300 MG PO Every morning October 04, 2020 12:00am April 6:36pmStart: 10-04-2020 End: 29-31-0022ywrv 1 tablet by mouth once daily at bedtimeGabapentin 600 mg Tablet Discontinued 600 MG PO Daily at bedtime October 04, 2020 12:00am September 24, 2021 10:44amComment on above:TAKE 1 CAPSULE BY MOUTH IN THE MORNING AND 2 CAPSULES IN THE AFTERNOON AND AT BEDTIMETake 2 capsules by mouth three times a day for 360 days.levoFLOXacin 500 mg oral tablet (2 sources)Quinolone AntimicrobialStart: 03-08-2024 End: 42-90-9625uxgf 1 tablet by mouth once dailylevoFLOXacin (Levaquin) 500 MG tablet Indications: Chronic sinusitis, unspecified location Take 1 tablet (500 mg) by mouth Daily for 14 days 14 tablet 03/08/2024 03/22/2024 Activeloratadine 10 mg oral tablet (12 sources)take 1 tablet by mouth once dailyloratadine (Claritin) 10 mg tablet Take 1 tablet (10 mg) by mouth once daily. Activemelatonin 10 mg oral tablet (20 sources)Start: 68-18-7090kjas 1 tablet by mouth at bedtime as needed for sleepMelatonin 10 mg Tablet Active 10 MG PO Bedtime as needed for Sleep March 16, 2022 1:00am Complies with drug cwizjbf66 hr metoprolol succinate 25 mg extended release oral tablet (20 sources)beta-Adrenergic BlockerStart: 86-25-5781tiia 1 tablet by mouth once dailyMetoprolol Succinate 25 mg tablet extended release 24 hr Active 0 .ROUTE .COMPLEX January 15, 2025 7:35am TAKE 1 TABLET BY MOUTH EVERY DAY Complies with drug therapyStart: 11-30-2024 End: 68-47-2384fvcw 1 tablet by mouth once dailyMetoprolol Succinate 25 mg Tablet Extended Release 24 Hr Discontinued 25 MG PO Daily 0 November 30, 2024 12:00am January 15, 2025 7:35amStart: 11-14-2024 End: 68-48-9298Bpcypkshug Succinate 25 mg Tablet Extended Release 24 Hr Discontinued 75 MG PO Daily 0 November 14, 2024 12:00am November 30, 2024 10:32am Start: 07-21-2024 End: 96-32-2646jelr 1 tablet by mouth once dailyMetoprolol Succinate 25 mg tablet extended release 24 hr Discontinued 0 .ROUTE .COMPLEX July 21, 2024 4:35pm November 14, 2024 3:26pm TAKE 1 TABLET BY MOUTH EVERY DAYStart: 06-27-2024 End: 92-72-4305jqmv 1 tablet by mouth once dailyMetoprolol Tartrate 25 mg tablet Discontinued 25 MG PO Daily June 27, 2024 10:01pm July 21, 2024 4:35pmtake 1 tablet by mouth every twenty-four hoursmetoprolol succinate XL (Toprol-XL) 25 MG 24 hr tablet Take by mouth Do not crush or chew. Active montelukast 10 mg oral tablet (20 sources)Leukotriene Receptor AntagonistStart: 03-28-2024 End: 73-13-7281bdbd 1 tablet by mouth at bedtimemontelukast (Singulair) 10 MG tablet Indications: Chronic frontal sinusitis Take 1 tablet (10 mg) by mouth at bedtime 90 tablet 3 03/28/2024 03/28/2025 ActiveNaproxen (6 sources)Nonsteroidal Anti-inflammatory Drug End: 71-86-4765WDSYFVPT SODIUM ORAL Take by mouth if needed. 0 03/02/2023 Discontinued (Other)Aleve TABS as needed Quantity: 0 Refills: 0 Ordered: 10-Feb-2022 DO Activenortriptyline 10 mg oral capsule (11 sources)Tricyclic AntidepressantStart: 10-23-2024 End: 97-83-7360uflu 1 capsule by mouth at bedtimenortriptyline (Pamelor) 10 MG capsule Indications: Bilateral carpal tunnel syndrome Take 1 capsule (10 mg) by mouth at bedtime 30 capsule 11 10/23/2024 10/23/2025 Activeomeprazole 40 mg delayed release oral capsule (20 sources)Proton Pump InhibitorStart: 08-61-1772eurhphrjwc (PriLOSEC) [address] capsule 05/20/2024 ActiveStart: 02-24-2024 End: 52-98-4807Sxrkpprvqq 40 mg capsule,delayed release(DR/EC) Discontinued 0 .ROUTE .COMPLEX February 24, 2024 8:39am November 14, 2024 6:00pm TAKE 1 CAPSULE BY MOUTH ONCE A DAY ON EMPTY STOMACH FOLLOWED IN 30 MINUTES BY BREAKFAST FOR 90 DAYSStart: 11-24-2016 End: 00-52-7794kusp 1 capsule by mouth once dailyOmeprazole 20 mg capsule,delayed release(DR/EC) Discontinued 20 MG PO Daily October 04, 2020 12:00am February 24, 2024 8:40amOmeprazole 40 MG TAKE 1 CAPSULE BY MOUTH ON EMPTY STOMACH FOLLOWED IN 30 MINUTES BY BREAKFAST Oral Once a day for 90 days ActiveComment on above:Take 20 mg by mouth once daily.pantoprazole 40 mg delayed release oral tablet (5 sources)Proton Pump InhibitorStart: 41-98-3068oddp 1 tablet by mouth once dailyPantoprazole 40 mg Tablet,Delayed Release (Dr/Ec) Active 40 MG PO Daily 0 November 14, 2024 12:00am Complies with drug therapypredniSONE 10 mg oral tablet (20 sources)Start: 09-28-2024 End: 25-56-0487wbizzaEIEE (Deltasone) 10 MG tablet Indications: Osteoarthritis of midtarsal joint of left foot , Capsulitis of left foot , Pain in joint of left foot , Pain and swelling of toe of left foot , Difficulty walking 1 tablet twice daily x 7 days; followed by 1 tablet daily as directed until complete 21 tablet 09/28/2024 10/23/2024 Discontinued (Therapy completed)Start: 03-28-2024 End: 58-18-6043qijw 1 tablet by mouth in the morningpredniSONE (Deltasone) 20 MG tablet Indications: Chronic frontal sinusitis Take 1 tablet (20 mg) bymouth in the morning and 1 tablet (20 mg) before bedtime. Do all this for 6 days. 12 tablet 03/28/2024 04/03/2024 ActiveStart: 03-08-2024 End: 24-34-1902eyrb 1 tablet by mouth in the morningpredniSONE (Deltasone) 20 MG tablet Indications: Chronic sinusitis, unspecified location Take 1 tablet (20 mg) by mouth in the morning and 1 tablet (20 mg) before bedtime. Do all this for 6 days. 12 tablet 03/08/2024 03/14/2024 ActiveStart: 91-09-9622vmflkoYOKW 5 MG 1 tablet 3 times a day for 3 days, 1 tablets 2 times a day for 3 days , 1 tablet 1 times a day for 3 days Orally as directed for 9 days Jan, Active Start: 27-56-0412yflupsAJLZ 20 MG 1 tablet Orally twice daily w/ food x 3 days then qd w/ food x 3 days for 6 days Jan, Not-Taking/PRNStart: 04-01-2022 End: 09-12-0121Ejjkckoyhf 10 mg tablets,dose pack Discontinued 1 dose pk PO per package directions April 01, 2022 1:00am March 26, 2023 2:38pm take 4 tabs for 3 days then take 3 tabs for 3 days then take 2 tabs for 3 days then take 1 tab for 3 daysStart: 04-01-2022 End: 40-76-3434Bqxzlaoqta Discontinued 1 dose pk PO per package directions April 01, 2022 1:00am March 26, 2023 2:38pm take 4 tabs for 3 days then take 3 tabs for 3 days then take 2 tabs for 3 days then take 1 tab for 3 daysStart: 04-01-2022 End: 32-61-5709Pzeoovytze Discontinued 1 dose pk PO per package directions April 01, 2022 12:00am 2022 1:38pm take 4 tabs for 3 days then take 3 tabs for 3 days then take 2 tabs for 3 days then take 1 tab for 3 daysStart: 38-18-2900Jfwlkwcbua Active 1 dose pk PO per package directions April 01, 2022 1:00am take 4 tabs for3 days then take 3 tabs for 3 days then take 2 tabs for 3 days then take 1 tab for 3 daysStart: 04-01-2022 Prednisone Active 1 dose pk PO per package directions April 01, 2022 12:00am take 4 tabs for 3 days then take 3 tabs for 3 days then take 2 tabs for 3 days then take 1 tab for 3 daysStart: 40-48-2125Nmrkkxjvru Active 1 dose pk PO per package directions October 09, 2021 12:22pm take 4 tabs for 3 days then take 3 tabs for 3 days then take 2 tabs for 3 days then take 1 tab for 3 days Start: 10-09-2021 End: 92-34-3293Mgvhdszmfu 10 mg tablets,dose pack Discontinued 1 dose pk PO per package directions October 09, 2021 12:00am March 16, 2022 12:00pm take 4 tabs for 3 days then take 3 tabs for 3 days then take 2 tabs for 3 days then take 1 tab for 3 daysStart: 10-09-2021 End: 25-15-6409Slnlmvihoq Discontinued 1 dose pk PO per package directions October 09, 2021 12:00am March 16, 2022 12:00pm take 4 tabs for 3 days then take 3 tabs for 3 days then take 2 tabs for 3 days then take 1 tab for 3 days Start: 10-09-2021 End: 35-98-1351Nsbumewpzv Discontinued 1 dose pk PO per package directions October 08, 2021 11:00pm March 16, 2022 11:00am take 4 tabs for 3 days then take 3 tabs for 3 days then take 2 tabs for 3 days then take 1 tab for 3 days thiamine 100 mg oral tablet (8 sources)Start: 10-23-2024 End: 47-34-0944uvgz 1 tablet by mouth once dailythiamine (Vitamin B-1) 100 MG tablet Indications: Bilateral carpal tunnel syndrome Take 1 tablet (100 mg) by mouth Daily 30 tablet 11 10/23/2024 10/23/2025 Activetolterodine tartrate 1 mg oral tablet (20 sources)Cholinergic Muscarinic AntagonistStart: 25-36-8038qvhb 1 tablet by mouth twice dailyTolterodine 1 mg tablet Active 0 .ROUTE .COMPLEX 60 July 29, 2024 3:43pm TAKE 1 TABLET BY MOUTH TWICE A DAY Complies with drug therapyStart: 07-06-2024 End: 06-38-3500uomr 1 tablet by mouth twice dailyTolterodine 1 mg tablet Discontinued 1 MG PO Twice daily 60 July 06, 2024 1:00am July 29, 2024 3:43pmStart: 07-28-2023 End: 60-11-2793dtou 1 tablet by mouth twice dailyTolterodine 2 mg tablet Discontinued 2 MG PO Twice daily 60 July 28, 2023 10:14am September 07, 2023 7:32amStart: 07-16-2022 End: 22-06-3823vncqohidrls (Detrol) 2 mg tablettraMADol hydrochloride 50 mg oral tablet (20 sources)Opioid AgonistStart: 17-95-4651npta 1 tablet by mouth every eight hours as needed for painTramadol 50 mg tablet Active 50 MG PO Every 8 hours as needed for pain 90 December 07, 2024 12:00am Complies with drug therapyStart: 11-04-2021 End: 26-81-9559oitw 1 tablet by mouth twice dailyTramadol 50 mg tablet Discontinued 50 MG PO Twice daily March 16, 2022 1:00am April 01, 2022 11:36amStart: 03-18-2021 End: 91-55-2691nrxg 1 tablet by mouth every six hoursTramadol 50 mg tablet Discontinued 50 MG PO Every 6 hours June 29, 2023 1:00am October 11, 2023 6:10pmStart: 10-04-2020 End: 04-22-7985jevt 1 tablet by mouth twice dailyTramadol 50 mg tablet Discontinued 50 MG PO Twice daily October 04, 2020 12:00am October 09, 2021 12:22pm Comment on above:every 6 hours as needed.traZODone hydrochloride 50 mg oral tablet (20 sources)Serotonin Reuptake InhibitorStart: 81-95-8953nnri 0.5-1 tablets by mouth once daily at bedtimeTrazodone 50 mg tablet Active 0 .ROUTE .COMPLEX December 24, 2024 6:14pm TAKE 1/2 - 1 TABLET BY MOUTH EVERYDAY AT BEDTIME Complies with drug therapyStart: 09-29-2024 End: 13-12-6443xchq 2 tablets by mouth once daily at bedtimeTrazodone 50 mg tablet Discontinued 100 MG PO Daily at bedtime 180 September 29, 2024 12:03pm November 14, 2024 3:26pmStart: 06-22-2024 End: 03-73-5599nhdp 0.5-1 tablets by mouth once daily at bedtimeTrazodone 50 mg tablet Discontinued 0 .ROUTE .COMPLEX June 22, 2024 8:08am September 29, 2024 12:04pm TAKE 1/2 - 1 TABLET BY MOUTH EVERYDAY AT BEDTIMEStart: 06-05-2024 End: 28-86-7830qekv 1 tablet by mouth at bedtimeTrazodone 100 mg Tablet Discontinued 100 MG PO time June 05, 2024 1:00am June 22, 2024 8:08amStart: 03-28-2024 End: 28-32-7380nbvJHZdnh (Desyrel) 50 MG tablet 03/28/2024 ActiveStart: 12-31-2023 End: 37-12-1870rlgv 0.5-1 tablets by mouth once daily at bedtimeTrazodone 50 mg tablet Discontinued 0 .ROUTE .COMPLEX December 31, 2023 1:35pm April 07, 2024 6:45pm TAKE 1/2 - 1 TABLET BY MOUTH EVERYDAY AT BEDTIMEStart: 12-31-2023 End: 74-56-2209hmft 0.5-1 tablets by mouth once daily at bedtime as needed Trazodone 50 mg tablet Discontinued 50 MG PO Daily at bedtime as needed December 31, 2023 12:00am December 31, 2023 1:35pm 1/2 to 1 tabletStart: 03-26-2023 End: 70-42-2743yygl 1 tablet by mouth once daily at bedtime as neededTrazodone 50 mg tablet Discontinued 50 MG PO Daily at bedtime as needed for sleeplessness March 26, 2023 1:00am April 19, 2023 3:08pm Completed/Discontinued Medications MedicationDrug Class(es)DatesSig (Normalized)Sig (Original)aluminum hydroxide 40 mg/ml / magnesium hydroxide 40 mg/ml / simethicone 4 mg/ml oral suspension (20 sources)Start: 04-15-2023 End: 14-18-5880emfq 1 mL by mouth every four hours as needed for gastroesophageal reflux diseaseAlum-Mag Hydroxide-Simeth (Mag-Al Plus) 200-200-20 mg/5 mL Suspension Discontinued 30 ML PO Q4H as needed for Heartburn 0 April 15, 2023 1:00am April 19, 2023 3:08pmaspirin 81 mg delayed release oral tablet (20 sources)Platelet Aggregation Inhibitor, Nonsteroidal Anti-inflammatory Drug Start: 73-25-1112fwki 1 tablet by mouth once dailyAspirin 81 mg Tablet,Delayed Release (Dr/Ec) Active 81 MG PO Daily April 09, 2023 1:00am On Hold: HOLD until hematoma resolves Complies with drug therapyAspir-Low Activebaclofen 20 mg oral tablet (20 sources)gamma-Aminobutyric Acid-ergic AgonistStart: 09-14-2023 End: 60-06-6740ritj 1 tablet by mouth once daily at bedtimeBaclofen 20 mg tablet Discontinued 0 .ROUTE .COMPLEX 90 June 02, 2024 8:24am November 14, 2024 3: 26pm TAKE 1 TABLET BY MOUTH EVERYDAY AT BEDTIMEStart: 06-03-2020 End: 77-19-9036tyer 1 tablet by mouth once daily at bedtimeBaclofen 20 mg tablet Discontinued 20 MG PO Daily at bedtime August 12, 2023 12:00am August 11 7:49pmComment on above:Take 1 tablet by mouth daily at bedtime.carvedilol 6.25 mg oral tablet (20 sources)alpha-Adrenergic Omi, beta-Adrenergic BlockerStart: 11-02-2024 End: 72-30-2277btzu 1 tablet by mouth twice daily at mealtimeCarvedilol (Coreg) 6.25 mg tablet Discontinued 6.25 MG PO Twice daily November 02, 2024 12:00am November 14, 2024 3:26pm must administer with a meal/foodStart: 06-05-2024 End: 74-44-2251eoge 1 tablet by mouth twice daily at mealtimeCarvedilol 3.125 mg Tablet Discontinued 3.125 MG PO Twice daily with meals June 05, 2024 1:00am June 29, 2024 11:07amStart: 06-16-2023 End: 94-92-7007yzqd 1 tablet by mouth twice dailyCarvedilol 6.25 mg tablet Discontinued 0 .ROUTE .COMPLEX 180 June 02, 2024 8:24am June 05, 2024 2:27pm TAKE 1 TABLET BY MOUTH TWICE A DAYStart: 06-18-2016 End: 86-34-3666rfih 1 tablet by mouth twice dailyCarvedilol 6.25 mg tablet Discontinued 6.25 MG PO Twice daily October 04, 2020 12:00am June 2:53pmComment on above:Take 6.25 mg by mouth twice daily with meals.cephalexin 500 mg oral capsule (20 sources)Cephalosporin AntibacterialStart: 10-09-2021 End: 86-43-9673cwve 1 capsule by mouth three times dailyCephalexin 500 mg capsule Discontinued 500 MG PO Three times daily October 09, 2021 12:00am March 16, 2022 11:56amcyclobenzaprine hydrochloride 10 mg oral tablet (20 sources)Muscle RelaxantStart: 04-15-2023 End: 55-92-1547kmrv 1 tablet by mouth every eight hours as needed for muscle spasmsCyclobenzaprine 10 mg tablet Discontinued 10 MG PO Every 8 hours as needed for Spasms 01 03April 19, 2023 3:07pm September 07, 2023 7:30amStart: 04-01-2022 End: 14-13-8948nmhu 1 tablet by mouth three times daily as needed for muscle spasmsCyclobenzaprine 10 mg tablet Discontinued 10 MG PO Three times daily as needed for back spasms April 01, 2022 1:00am March 26, 2023 2:36pm Start: 10-09-2021 End: 03-78-9065efca 1 tablet by mouth three times daily as needed for muscle spasmsCyclobenzaprine 10 mg tablet Discontinued 10 MG PO Three times daily as needed for back spasms October 09, 2021 12:00am March 16, 2022 11:58am docusate sodium 50 mg / sennosides, long-term 8.6 mg oral tablet (20 sources)Start: 04-15-2023 End: 69-59-6710nchf 2 tablets by mouth twice dailySennosides-Docusate Sodium 8.6-50 mg Tablet Discontinued 2 TAB PO Twice daily 120 April 3:07pm April 07, 2024 6:39pmdoxycycline monohydrate 100 mg oral capsule (20 sources)Tetracycline-class DrugStart: 03-28-2024 End: 92-45-0620slta 1 capsule by mouth twice dailyDoxycycline Monohydrate 100 mg capsule Discontinued 100 MG PO Twice daily April 04, 2024 1:00amMay 12, 2024 8:01pmStart: 11-01-2023 End: 63-76-5674cpjv 1 tablet by mouth twice dailyDoxycycline Hyclate 100 mg tablet Discontinued 100 MG PO Twice daily 19 02November 01, 2023 12:00am April 04, 2024 3:26pmenalapril maleate 5 mg oral tablet (20 sources)Angiotensin Converting Enzyme InhibitorStart: 11-14-2024 End: 49-91-7832jswc 1 tablet by mouth twice dailyEnalapril Maleate (Vasotec) 5 mg Tablet Discontinued 5 MG PO Twice daily November 14, 2024 12:00am January 09, 2025 4:14pm On Hold: HOLD given low BPs. May need to discontinue completely. F/u withPCPStart: 03-02-2023 End: 07-76-6720rvpy 1 tablet by mouth twice dailyEnalapril Maleate 2.5 mg tablet Discontinued 2.5 MG PO Twice daily March 26, 2023 1:00am 2024 2:49pm On Hold: Resume on 06/12/24.ferrous sulfate 324 mg delayed release oral tablet (4 sources)Start: 11-30-2024 End: 52-13-2284ooke 1 tablet by mouth once dailyFerrous Sulfate 324 mg (65 mg iron) Tablet,Delayed Release (Dr/Ec) Discontinued 324 MG PO Daily 0 November 30, 2024 12:00am January 11, 2025 4:19pmfluconazole 200 mg oral tablet (5 sources)Azole AntifungalStart: 11-14-2024 End: 51-39-1017pfed 1 tablet by mouth once dailyFluconazole 200 mg tablet Discontinued 200 MG PO Daily November 14, 2024 12:00am November 30, 2024 10:32am hydroCHLOROthiazide 25 mg oral tablet (20 sources)Thiazide DiureticStart: 04-17-2020 End: 49-36-0826dlvj 1 tablet by mouth once dailyHydrochlorothiazide 25 mg tablet Discontinued 25 MG PO Daily October 04, 2020 12:00am April 19, 2023 3:08pm End: 55-33-0928eksr 1 capsule by mouth once dailyhydroCHLOROthiazide (Microzide) 12.5 mg capsule Take 1 capsule (12.5 mg) by mouth once daily. 0 03/02/2023 Discontinued (Therapy completed)Comment on above:Take 25 mg by mouth once daily. hydrocortisone 25 mg/ml topical lotion (4 sources)CorticosteroidStart: 11-30-2024 End: 77-41-9920Xquivmcfrztsys 2.5 % Lotion Discontinued 1 APPLIC TOPICAL Four times daily as needed for itching 0 November 30, 2024 12:00am January 11, 2025 4:19pmiv contrast (will be provided with radiology test) (3 sources)Start: 05-09-2020 End: 30-49-4483vm contrast (will be provided with radiology test) Indications: Presacral mass MRI Pelvis Inject, intravenously, once for 1 dose. No IV access, insert saline lock prior to the beginning of sedation, infusion, injection of imaging exam. Discontinue saline lock post exam. If Pt has a central line or I VAD, may access for administration according to line specific nursing protocol. Once exam is complete flush line and de-access according to line specific nursing protocol in the MR contrast administration guidelines link. 1 Each 0 05/09/2020 06/22/2023 Discontinued (Discontinued by Patient)Start: 04-36-4210zd contrast (will be provided with radiology test) [...] 1 Each 0 05/09/2020 Active Comment on above:MRI Pelvis Inject, intravenously, once for 1 dose. [...] protocol in the MR contrast administration guidelines link.lanolin 0.155 mg/mg / petrolatum 0.534 mg/mg topical ointment (4 sources)Start: 11-30-2024 End: 68-21-5289Gijd A And D-White Pet-Lanolin Ointment Discontinued 1 APPLIC TOPICAL Twice daily 0 November 302:00am January 11, 2025 4:21pm latanoprost 0.05 mg/ml ophthalmic solution (20 sources)Prostaglandin AnalogStart: 10-04-2020 End: 43-64-3596lpop 1 drop(s) into the eye(s) once dailyLatanoprost 0.005 % drops Discontinued 1 DROPS EYE-BOTH Daily October 04, 2020 12:00am March 16, 2022 11:59amStart: 10-04-2020 End: 21-60-3310aijw 1 drop(s) into the eye(s) once dailyLatanoprost 0.005 % drops Discontinued 1 DROPS EYE-BOTH Daily October 04, 2020 12:00am March 16, 2022 11:59amStart: 10-04-2020 End: 63-83-2466qjcq 1 drop(s) into the eye(s) once dailyLatanoprost Discontinued 1 DROPS EYE-BOTH Daily October 04, 2020 12:00am March 16, 2022 11:59amStart: 11-18-2019 End: 66-22-0436ofnt 1 drop(s) into the eye(s) once dailylatanoprost (XALATAN) 0.005 % ophthalmic solution INSTILL 1 DROP INTO BOTH EYES EVERY DAY DIRECTED 0 11/18/2019 06/23/2023 Discontinued (Discontinued by Patient) End: 40-99-5725qajj 1 drop(s) into the eye(s) at bedtimelatanoprost (Xalatan) 0.005 % ophthalmic solution 1 drop at bedtime. 03/08/2024 Discontinued (Therapy completed)take 1 drop(s) into the eye(s) once daily at bedtimeLatanoprost 0.005 % APPLY ONE DROP TO BOTH EYES ONCE A DAY AT BEDTIME Ophthalmic for 90 Days Activetake 1 drop(s) into the eye(s) once daily at bedtimeLatanoprost 0.005 % APPLY ONE DROP TO BOTH EYES ONCE A DAY AT BEDTIME Ophthalmic for 90 Days Active Comment on above:INSTILL 1 DROP INTO BOTH EYES EVERY DAY DIRECTEDlisinopril 2.5 mg oral tablet (20 sources)Angiotensin Converting Enzyme InhibitorStart: 07-03-2024 End: 48-89-3332qwad 1 tablet by mouth once dailyLisinopril 2.5 mg tablet Discontinued 2.5 MG PO Daily 90 90 August 21, 2024 9:08am November 1453:26pm End: 52-62-6612rygyjuozks 5 MG tablet Take by mouth Daily 10/23/2024 Discontinued (Therapy completed)LISINOPRIL ORAL Take by mouth. Activemagnesium hydroxide 80 mg/ml oral suspension (20 sources)Start: 04-15-2023 End: 74-36-3190uifl 1 mL by mouth at bedtime as needed for constipationMagnesium Hydroxide (Milk Of Magnesia) 400 mg/5 mL Suspension Discontinued 30 ML PO Bedtime as needed for Constipation 0 April 15, 2023 1:00am April 19, 2023 3:08pmStart: 04-15-2023 End: 43-70-3001aapq 1 mL by mouth at bedtime as needed for constipationMagnesium Hydroxide (Milk Of Magnesia) 400 mg/5 mL Suspension Discontinued 30 ML PO Bedtime as needed for Constipation 0 April 15, 2023 1:00am April 19, 2023 3:08pmStart: 04-15-2023 End: 33-99-1677rujn 1 mL by mouth at bedtime as needed for constipationMagnesium Hydroxide (Milk Of Magnesia) 400 mg/5 mL Suspension Discontinued 30 ML PO Bedtime as needed for Constipation 0 April 15, 2023 12:00am April 19, 2023 2:08pmStart: 04-15-2023 End: 26-03-4827gcno 1 mL by mouth at bedtimeMagnesium Hydroxide (Milk Of Magnesia) 400 mg/5 mL Suspension Discontinued 30 ML PO Bedtime 0 April 15, 2023 1:00am April 19, 2023 3:08pmStart: 04-15-2023 End: 14-50-1662jzxw 1 mL by mouth at bedtimeMagnesium Hydroxide (Milk Of Magnesia) 400 mg/5 mL Suspension Discontinued 30 ML PO Bedtime 0 April 15, 2023 12:00am April 19, 2023 2:08pmmagnesium oxide 400 mg oral tablet (5 sources)Start: 11-14-2024 End: 16-89-3020zuvy 1 tablet by mouth once dailyMagnesium Oxide 400 mg (241.3 mg magnesium) Tablet Discontinued 400 MG PO Daily 0 November 14, 2024 12:00am January 11, 2025 4:19pmmethylPREDNISolone 4 mg oral tablet (15 sources)CorticosteroidStart: 06-29-2024 End: 00-74-7157zluu 1 tablet by mouth onceMethylprednisolone (Medrol (Jeremy)) 4 mg tablets,dose pack Discontinued 0 PO per package directions June 29, 2024 1:00am July 24, 2024 11:16am PO PER PKG DIR for 6 days End: 67-88-7345wuef 1 tablet by mouth in the morningmethylPREDNISolone (Medrol) 4 MG tablet Take 4 mg by mouth in the morning. 03/08/2024 Discontinued (Therapy completed)metOLazone 2.5 mg oral tablet (20 sources)Thiazide-like DiureticStart: 03-28-2024 End: 10-80-0807sgpb 1 tablet by mouth once dailyMetolazone 2.5 mg tablet Discontinued 2.5 MG PO Daily April 04, 2024 1:00am July 03, 2024 2:51pm On Hold: Resume on 06/12/24.24 hr mirabegron 25 mg extended release oral tablet (10 sources)beta3-Adrenergic AgonistStart: 07-04-2024 End: 75-53-1103iqsv 1 tablet by mouth once dailyMirabegron (Myrbetriq) 25 mg tablet extended release 24 hr Discontinued 25 MG PO Daily July 04, 2024 1:00am July 06, 2024 12:58pm24 hr oxybutynin chloride 15 mg extended release oral tablet (20 sources)Cholinergic Muscarinic AntagonistStart: 03-16-2022 End: 29-02-3638ttjf 1 tablet by mouth once dailyOxybutynin Chloride 15 mg tablet extended release 24hr Discontinued 15 MG PO Daily March 16, 2022 1:00am March 26, 2023 2:38pmoxyCODONE hydrochloride 5 mg oral tablet (20 sources)Opioid AgonistStart: 04-15-2023 End: 36-85-7838zywe 1 tablet by mouth every six hours as needed for pain Oxycodone 5 mg tablet Discontinued 5 MG PO Every 6 hours as needed for Pain (Scale Score 7-10) 20 5Dece2022September 07, 2023 7:31amStart: 04-15-2023 End: 88-72-9412crwh 2 tablets by mouth every six hours as needed for pain Oxycodone 5 mg tablet Discontinued 10 MG PO Every 6 hours as needed for Pain Scale 7-10 April 15, 2023 5:33pm April 19, 2023 3:08pmStart: 04-15-2023 End: 75-83-7526xyup 10 mg by mouth every six hoursOxycodone Discontinued 10 MG PO Every 6 hours April 15, 2023 5:33pm April 19, 2023 3:08pmStart: 04-01-2022 End: 60-64-2916czli 5-10 mg by mouth every six hours as needed for painOxycodone 5 mg tablet Discontinued 5 - 10 MG PO Q6H as needed for Pain 40 8 April 01, 2022 March 26, 2023 2:38pmStart: 10-09-2021 End: 66-96-5749qqwr 5-10 mg by mouth every six hours as needed for painOxycodone 5 mg Tablet Discontinued 5 - 10 MG PO Q6H as needed for Pain 40 8 October 09, 20212021 12:00pmpsyllium 3400 mg powder for oral suspension (4 sources)Start: 11-30-2024 End: 74-41-0544Lcwsosmy Husk (Metamucil Fiber (Aspartame)) 3.4 gram Powder In Packet Discontinued 1 PACKET PO Daily 0 November 30, 2024 12:00am January 11, 2025 4:20pmsulfamethoxazole 800 mg / trimethoprim 160 mg oral tablet (20 sources)Dihydrofolate Reductase Inhibitor Antibacterial, Sulfonamide AntimicrobialStart: 32-25-4915kbce 1 tablet by mouth every twelve hoursBactrim DS 800-160 MG 1 tablet Orally Twice a day for 5 days May, Not-Taking/PRN Start: 04-01-2022 End: 88-35-6588irar 1 tablet by mouth every twelve hoursSulfamethoxazole- Trimethoprim (Bactrim Ds) 800-160 mg tablet Discontinued 1 TAB PO Q12H 2021 1:00am March 26, 2023 2:39pmtorsemide 20 mg oral tablet (20 sources)Loop DiureticStart: 07-03-2024 End: 23-82-8625pjuo 1 tablet by mouth every other dayTorsemide 20 mg tablet Discontinued 20 MG PO .QOD July 03, 2024 2:51pm September 18,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 foot; Translations: [Pain in left foot]Onset: 10-23-2024 18-28-2690NysomyboUqary connective tissue disease (5 sources)Tear of right rotator cuff; Translations: [Unspecified rotator cuff tear or rupture of right shoulder, not specified as traumatic]Onset: 10-23-2024 19-03-3796DzuxzyycDbczw diseases of kidney and ureters (1 source)Disorder of kidney and/or ureter; Translations: [Unspecified disorder of kidney and ureter]Onset: 98-33-8391SxxefsoeHodfw diseases of veins and lymphatics (20 sources)Venous insufficiency of leg; Translations: [Venous insufficiency (chronic) (peripheral)]Onset: 394101-68-7550RutpaxitYjftr ear and sense organ disorders (6 sources)Bilateral tinnitus; Translations: [Tinnitus, bilateral]Onset: 566445-18-3970YgknefnlUjwfl eye disorders (20 sources)Dry eyes; Translations: [Dry eye syndrome of bilateral lacrimal glands]Onset: 02-26-2023 Resolved: 895917-67-0281HtlbnlfeYngey gastrointestinal disorders (1 source)Other intra-abdominal and pelvic swelling, mass and lump; Translations: [OTH INTRA-ABD PELV SWELL MASS LUMP]Onset: 38-21-1042XnpfxamkZiggr gastrointestinal disorders (1 source)Heartburn; Translations: [Heartburn]Onset: 55-63-5715ZswlbsjcAswqr gastrointestinal disorders (20 sources)Diarrhea; Translations: [Diarrhea, unspecified]Onset: 10-23-2024 34-99-8631GhcoquoqFjhdd gastrointestinal disorders (7 sources)Diarrhea, unspecified; Translations: [Diarrhea]Onset: 04-07-2024 34-62-7309VvgzjugyUhrvl injuries and conditions due to external causes (19 sources)Contusion; Translations: [Other injury of unspecified body region, initial encounter]Onset: 027785-63-8167DchhvwcwZiirz lower respiratory disease (1 source)Shortness of breath; Translations: [SHORTNESS OF BREATH]Onset: 95-02-6059ZzpmopdlQpkih nervous system disorders (20 sources)Postoperative pain ; Translations: [Other acute postprocedural pain] Onset: 744053-70-9510TixwdutgXxzqc nervous system disorders (20 sources)Unsteadiness on feet; Translations: [Abnormality of gait]Onset: 514051-70-7394JngschomIcyzh nervous system disorders (20 sources)Unsteady when walking; Translations: [Unsteadiness on feet]Onset: 157834-45-1967RewamhczEchii non-traumatic joint disorders (1 source)Joint pain; Translations: [Pain in unspecified joint]Onset: 03-05-2016 EpisodicOther non-traumatic joint disorders (19 sources)Hip pain; Translations: [Pain in unspecified hip]Onset: 10-23-2024 41-97-2225MhojqlhjMzuva nutritional; endocrine; and metabolic disorders (20 sources)Overweight in adulthood with body mass index of 25 or more but less than 30; Translations: [Overweight]Onset: 717241-07-9722GehpazayKmkao upper respiratory disease (1 source)Hypertrophy of nasal turbinates; Translations: [Hypertrophy of nasal turbinates]Onset: 76-76-9072NfteadlpNsgce upper respiratory disease (1 source)Bleeding from nose; Translations: [Epistaxis]Onset: 67-78-0137Hahlncpp Other upper respiratory disease (6 sources)Polyp of nasal cavity; Translations: [Polyp of nasal cavity]Onset: 855181-30-2007TmrtfwwpFideauxx codes; unclassified (5 sources)History of syncope; Translations: [Other specified personal history presenting hazards to health] Resolved: 69-25-0371UskqhgtxXvvrhatv codes; unclassified (11 sources)History of left mastectomy; Translations: [Acquired absence of left breast and nipple]Onset: 872753-15-1215JgiecygiNvxsewmm codes; unclassified (1 source)Other specified postprocedural states; Translations: [OTH SPECIFIED POSTPROCEDURAL STATES]Onset: 67-54-8458ElwwdptuIcdzcogm codes; unclassified (1 source)Acquired absence of other specified parts of digestive tract; Translations: [ACQ ABSENCE OTH PART DIGESTV TRACT]Onset: 88-05-3477Ixlhkpsu Residual codes; unclassified (1 source)Acquired absence of both cervix and uterus; Translations: [ACQUIRED ABSENCE BOTH CERVIX AND UTERUS]Onset: 83-68-6890CiscddguFnxhrumg codes; unclassified (1 source)Acquired absence of left breast and nipple; Translations: [ACQUIRED ABSENCE LT BREAST AND NIPPLE]Onset: 22-38-7988VydgnqxuKegxlfac codes; unclassified (2 sources)Estrogen receptor negative status [ER-]; Translations: [ESTROGEN RECEPTOR NEGATIVE STATUS]Onset: 06-83-0694PjfxdclnZwfewuse codes; unclassified (1 source)Family history of malignant neoplasm of other organs or systems; Translations: [FAM HX MALIG NEOPLASM OTH ORGN/SYS]Onset: 84-09-1644Qqfkqdvc Residual codes; unclassified (14 sources)Edema; Translations: [Edema, unspecified]Onset: EpisodicResidual codes; unclassified (12 sources)Never smoked tobacco; Translations: [Other specified health status] Onset: 801434-25-8047LgbkbsbqPatprzhkcwy; intervertebral disc disorders; other back problems (20 sources)Spinal stenosis of lumbar region; Translations: [Spinal stenosis, lumbar region without neurogenic claudication]Onset: 02-06-2015 Resolved: 344343-33-8987YbxwbvxlWmvotpt and strains (3 sources)Neck sprain; Translations: [Neck sprain and strain]Onset: 05-04-2014 EpisodicSuperficial injury; contusion (2 sources)Contusion of lower leg; Translations: [Contusion of lower leg]Onset: 25-29-8787XwtpebfcCwnnkmp (20 sources)Syncope and collapse; Translations: [Syncope and collapse]Onset: 243254-24-0682OpgxqhooDpcsnvbtpunr (5 sources)Never smoked tobacco; Translations: [Never smoker]Unclassified (4 sources)Acute bilateral low back pain without sciatica M54.50Unclassified (7 sources)Onset: 03-02-2023 Resolved: 392873-96-8904Jqrlxfah veins of lower extremity (5 sources)Venous varices; Translations: [Asymptomatic varicose veins of unspecified lower extremity]Onset: 636069-88-3248Aoixcnww Results Test NameValueInterpretationReference RangeFacilityTRANSTHORACIC ECHO (TTE) LIMITED 40-41-7251MYIUYMJUPKFFE ECHO (TTE) [address], [address] [place] [address] TRANSTHORACIC ECHOCARDIOGRAM REPORT Patient Name: RENUKA OWEN Jennifer Physician: [id number] Bryce Hendrickson MD, [facility] Study Date: 02/19/2025 Ordering Provider: [id number] BRYCE HENDRICKSON MRN/PID: [id number] Fellow: Nurse: Date of /Age: 8 1950 / 74 years Mental Health Advanced Practice Nurse: Светлана Mantilla RDCS, RVT Gender Assigned at F Additional Staff: : Height: 154.94 cm Admit Date: Weight: 67.13 kg Admission Status: Outpatient BSA / BMI: 1.66 m2 / 27.96 Department Location: [facility] Heart kg/m2 [place] Blood Pressure: 116 /76 mmHg Study Type: TRANSTHORACIC ECHO (TTE) LIMITED Diagnosis/ICD: Nonrheumatic mitral (valve) insufficiency-I34.0; Other ill defined heart diseases-I51.89 Indication: Abnormal EKG-LBBB, HTN, Sepsis with Multiorgan Failure-10/2024, Overweight, CKD-Stage III CPT Codes: Echo Limited-36998 Study Detail: The following Echo studies were [...] (1.8-2.4cm) AORTA: Asc Ao Diam 2.89 cm [id number] Bryce Hendrickson MD, [facility] Electronically signed on 02/19/2025 at 4:37:04 PM Final CONCLUSIONS: 1. Left ventricular ejection fraction is mildly decreased by visual estimate at 40-45%. 2. Spectral Doppler shows a Grade I (impaired relaxation pattern) of left ventricular diastolic filling with normal left atrial filling pressure. 3. Septal motion suggest conduction abnormalities. 4. There is normal right ventricular global systolic function. 5. Moderate to severe mitral valve regurgitation.NormalScci Hospital LimaUS Heart Transthoracicon 61-40-2556DG vol index A/L39.3 ml/j9LjyxehjjlwTrinity Health System [facility] Campus Work Phone: [phone] A4C EF50.9UnTrinity [facility] Campus Work Phone: [phone] Biplane EF62 %[facility] Work Phone: [phone] EF43 %[facility] Work Phone: [phone] UnTr[facility] Work Phone: [phone] diam2.09 [facility] Work Phone: [phone] E/A ratio0.84[facility] Work Phone: CONCLUSIONS: 1. Left ventricular ejection fraction is mildly decreased by visual estimate at 40-45%. 2. Spectral Doppler shows a Grade I (impaired relaxation pattern) of left ventricular diastolic filling with normal left atrial filling pressure. 3. Septal motion suggest conduction abnormalities. 4. There is normal right ventricular global systolic function. 5. Moderate to severe mitral valve regurgitation.[facility] Heart [address], [address] [address] TRANSTHORACIC ECHOCARDIOGRAM REPORT Patient Name: RENUKA Dey CLAUS Rodriguez Physician: [id number] Bryce Hendrickson MD, [facility] Study Date: 02/19/2025 Ordering Provider: [id number] BRYCE HENDRICKSON MRN/PID: [id number] Fellow: Nurse: Date of /Age: 8 1950 / 74 years Mental Health Advanced Practice Nurse: Светлана Mantilla RDCS, RVT Gender Assigned at F Additional Staff: : Height: 154.94 cm Admit Date: Weight: 67.13 kg Admission Status: Outpatient BSA / BMI: 1.66 m2 / 27.96 Department Location: [facility] Heart kg/m2 [place] Blood Pressure: 116 /76 mmHg Study Type: TRANSTHORACIC ECHO (TTE) LIMITED Diagnosis/ICD: Nonrheumatic mitral (valve) insufficiency-I34.0; Other ill defined heart diseases-I51.89 Indication: Abnormal EKG-LBBB, HTN, Sepsis with Multiorgan Failure-10/2024, Overweight, CKD-Stage III CPT Codes: Echo Limited-73377 Study Detail: The following Echo studies were [...] MR Vmax: 496.01 cm/s dP/dt: 420 mmHg/s (>1200mmHg (more content not included)...Bryce Celis MD - 02/19/[address], [address], [place] [address] TRANSTHORACIC ECHOCARDIOGRAM REPORT Patient Name: RENUKA Dey ONIEL Rodriguez Physician: [id number] Hendrickson MD, [facility] Study Date: 02/19/2025 Ordering Provider: [id number] BRYCE HENDRICKSON MRN/PID: [id number] Fellow: Nurse: Date of /Age: 8 1950 / 74 years Mental Health Advanced Practice Nurse: Светлана Mantilla RDCS, T Gender Assigned at F Additional Staff: : Height: 154.94 cm Admit Date: Weight: 67.13 kg Admission Status: Outpatient BSA / BMI: 1.66 m2 / 27.96 Department Location: [facility] kg/m2 [place] Blood Pressure: 116 /76 mmHg Study Type: TRANSTHORACIC ECHO (TTE) LIMITED Diagnosis/ICD: Nonrheumatic mitral (valve) insufficiency-I34.0; Other ill defined heart diseases-I51.89 Indication: Abnormal EKG-LBBB, HTN, Sepsis with Multiorgan Failure-10/2024, Overweight, CKD-Stage III CPT Codes: Echo Limited-73430 Study Detail: The following Echo studies were [...] (1.8-2.4cm) AORTA: Asc Ao Diam 2.89 cm [id number] Bryce Hendrickson MD, [facility] Electronically signed on 02/19/2025 at 4:37:04 PM [...] 5. Moderate to severe mitral valve regurgitation. [facility] Work Phone: [facility] Work Phone: XR Shoulder - right 2 Viewson 01-39-4950Ruzrovu Result: Right Shoulder AP and Scap Y No acute fracture or dislocation Bone Structures clavicle and scapula and humeral head visualized with elevation of humeral head and degenerative changes at cuff insertion and articular surface of acromion concerning for chronic rotator cuff tear/ impingement. AC joint hypertrophy with underlying degenerative changes. Glenohumeral joint space narrowed with some subchondral sclerosis. Soft tissues and limited visualized lung yu unremarkable Impression: No acute bony process right shoulder with degenerative changes at AC jointNOSt. Louis VA Medical CenterNOND HealthcareXR Shoulder - right 2 Viewson 88-58-8637Uneqbjfmr Study observation (narrative)NOMS HealthcareBasic Metabolic Panelon 04-10-6105KKN/1.73 sq M.predicted MDRD (S/P/Bld) [Vol rate/Area]46.279 mL/min/{1.73_m2}NormalThe Counts Include [address] [facility] Physician GroupComment on above:Performed By: #### BMP, CBCNO ####[facility] [address] [facility]inojos[facility] [place] [address]LKJYwwhvan [Mass/volume] in Serum or PlasmaOrdered By: Danyelle Mathews on 38-49-9036Rtozjra [Mass/Vol]10.4 mg/dLHigh8.6-10.3FCleveland Clinic Medina HospitalComment on above:Result Comment: PERFORMED BY:[place] [address] [address] [place] [place] [phone] MEDICAL DIRECTORCARLOS VÁZQUEZ M.D.Performed By: #### JOSE, CBCNO ####[place] [address] [facility] [place] [address]HKGTtrgjz dioxide, total [Moles/volume] in Serum or PlasmaOrdered By: Danyelle Mathews on 98-61-7800XF9 [Moles/Vol]28.9 mmol/BZjhenf01.0-31.0[facility]ome[facility] Memorial HospitalComment on above:Performed By: #### BMP, CBCNO ####[facility] [address] Hinojosasandh[facility] medical center[place], [place] [address]MVNYawmnmcy [Moles/volume] in Serum or Plasma Ordered By: Danyelle Mathews on 60-84-4458Fexkitce [Moles/Vol]101 mmol/YVswmte34-650 [facility]ome[facility] Memorial HospitalComment on above:Performed By: #### BMP, CBCNO ####[facility] [facility] medical centerk[place], [place] [address]HJA Creatinine [Mass/volume] in Serum or PlasmaOrdered By: Danyelle Mathews on 84-45-4572Dzpszfsutj [Mass/Vol]1.22 mg/dLHigh0.60-1.20[facility]ome[facility] Memorial HospitalComment on above:Performed By: #### JOSE, CBCNO ####[facility] [place], [place] [address]TSCZqgxuzacxtm distribution width [Ratio] by Automated countOrdered By: Danyelle Mathews on 93-35-3589Qcwyihhkmro distribution width (RBC) [Ratio]15.8 %High11.9-15.3FCleveland Clinic Medina HospitalComment on above:Performed By: #### JOSE, CBCNO ####[facility] [place], [place] [address]KSESppoyjavzdzl [#/volume] in Blood by Automated countOrdered By: Danyelle Mathews on 12-58-4713IUK (Bld) [#/Vol] 3.97 10*6/uLNormal3.60-5.00[facility] Memorial HospitalComment on above: Performed By: #### JOSE, CBCNO ####[place] [address] [place], [place] [address]CBYNcfsubkvzr filtration rate [Volume Rate/Area] in Serum, Plasma or Blood by CreatinineOrdered By: Danyelle Mathews on 01-11-2025 Glomerular filtration rate [Volume Rate/Area] in Serum, Plasma or Blood by Tvlazimecv18.279 mL/MinHolmes County Joel Pomerene Memorial HospitalGlucose [Mass/volume] in Serum or PlasmaOrdered By: Danyelle Mathews on 36-10-9480Ozmziim [Mass/Vol]86 mg/dL Vzloou90-406VnzusrkxkHolmes County Joel Pomerene Memorial HospitalComment on above:ADA recommended reference rangeRandom Glucose Reference Range is dependent on time and content of last meal. Glucose of more than 200 mg/dL in a nonstressed, ambulatory subject supports the diagnosisof Diabetes Mellitus.Result Comment: Random Glucose Reference Range is dependent on time and content of last meal. Glucose of more than 200 mg/dL in a nonstressed, ambulatory subject supports the diagnosis of Diabetes Mellitus. ADA recommended reference rangePerformed By: #### BMP, CBCNO ####[facility] [place], [place] [address]CLVRbhpeduuqk [Volume Fraction] of Blood by Automated countOrdered By: Danyelle Mathews on 26-76-0050Sgebpoyumf (Bld) [Volume fraction]35.5 %Normal 34.0-46.4FCleveland Clinic Medina HospitalComment on above:Performed By: #### BMP, CBCNO ####[address] [address] USAHemoglobin [Mass/volume] in BloodOrdered By: Danyelle Mathews on 01-11-2025 Hemoglobin (Bld) [Mass/Vol]11.7 g/dLLow11.8-15.4FCleveland Clinic Medina HospitalComment on above:Performed By: #### BMP, CBCNO ####[address] [address]OKISensmasb CBC Without Diffon 97-74-8970Kyiu Corpuscular HGB Conc32.9 g/uPIxwzhu76.0-35.0The Counts Include [address] [facility] Physician GroupComment on above:Performed By: #### BMP, CBCNO ####[address] [address]KFISfhck Blood Count7.9 [CFU]/mLNormal3.8-11.6The Counts Include [address] [facility] Physician GroupComment on above:Performed By: #### BMP, CBCNO ####[address] [address]IKNBfdauyingp [#/volume] corrected for nucleated erythrocytes in Blood by Automated counOrdered By: Danyelle Mathews on 48-53-8321CQC corrected for nucl RBC Auto (Bld) [#/Vol]7.9 10*3/uL3.8-11.6FAshtabula County Medical Center [Entitic mass] by Automated countOrdered By: Danyelle Mathews on 87-92-8013CUV (RBC) [Entitic mass]29.4 ujJysbyp54.7-34.3FCleveland Clinic Medina HospitalComment on above:Performed By: #### BMP, CBCNO ####[address] [address]UTADSCF Auto (RBC) [Mass/Vol]Ordered By: Danyelle Arringtonifeanyi on 80-36-7211BPPT (RBC) [Mass/Vol]32.9 g/dL32.0-35.0[facility] Memorial HospitalMCV [Entitic volume] by Automated countOrdered By: Danyelle Mathews on 28-17-4478UUL (RBC) [Entitic vol]89.4 fAJvpqfj24-302TmionvyigHolmes County Joel Pomerene Memorial HospitalComment on above:Performed By: #### DERICK GARCIANO ####[place] [address] [place], [place] [address]AVTSj Panel InformationOrdered By: Danyelle Arringtonifeanyi on 96-62-8577Mnmloqwd Creatinine Clearance (ChemN/[facility]ria Memorial HospitalPlatelet mean volume [Entitic volume] in Blood by Automated countOrdered By: Danyelle Arringtonifeanyi on 99-63-3089Dokxnmhg mean volume (Bld) [Entitic vol]8.6 fLNormal6.3-10.7FCleveland Clinic Medina HospitalComment on above:Result Comment: PERFORMED BY:[place] [address] [address] [place], [place] [phone] MEDICAL JACKELYN VÁZQUEZ M.D.Performed By: #### DERICK GARCIANO ####[place] [address] [place], [place] [address]VMGQxkufjxlo [#/volume] in Blood by Automated count Ordered By: Danyelle Arringtonifeanyi on 77-91-5561Kkawjddax (Bld) [#/Vol]336 10*3/uLNormal 150-450[facility] Memorial HospitalComment on above:Performed By: #### DERICK GARCIANO ####[address] [address]BNK Potassium [Moles/volume] in Serum or PlasmaOrdered By: Danyelle Mathews on 52-18-1823Sgwldkqne [Moles/Vol]4.8 mmol/LNormal3.5-5.1FCleveland Clinic Medina HospitalComment on above:Performed By: #### DERICK GARCIANO ####[address] [address]UCRUawfn or plasma anion gap determinationOrdered By: Danyelle Arringtonifeanyi on 87-12-9018Arrwq gap [Moles/Vol]12.9 mmol/LNormal6.0-15.0[facility] Memorial HospitalComment on above:Performed By: #### JOSE CBCNO ####[facility] [facility]jos[facility] [place] [address]RHAMxpcxk [Moles/volume] in Serum or PlasmaOrdered By: Danyelle Arringtonifeanyi on 99-87-3057Zvljli [Moles/Vol]138 mmol/FFffvpj864-053PepbmbkhlHolmes County Joel Pomerene Memorial HospitalComment on above:Performed By: #### WOODY GARCIA ####[place] [address] [address] HospitaljuanBROO[place], [place] [address]TUIGwdp nitrogen [Mass/volume] in Serum or PlasmaOrdered By: Danyelle Reid on 61-94-8618Smhq nitrogen [Mass/Vol]27 mg/dLHigh7-25[facility] Memorial HospitalComment on above:Performed By: #### WOODY GARCIA ####[place] [address] [facility] CenterkathleenBROO[place], [place] [address]KPXVqfym Metabolic Panelon 01-31-3082Xhzmf gap [Moles/Vol]13.5 mmol/LNormal 6.0-15.0The Counts Include [address] [facility] Physician GroupComment on above:Performed By: #### BMP ####[place] [address] [facility] [place] [address] USACalcium [Mass/Vol]8.1 mg/dLLow8.6-10.3The Counts Include [address] [facility] Physician GroupComment on above: Performed By: #### BMP ####[facility] [facility] [place] [place] [address] USAChloride [Moles/Vol]103 mmol/IIbzemx85-397Ynk Counts Include 234 [facility] Physician GroupComment on above:Performed By: #### BMP ####[facility] [facility] [place] [place] [address] USACO2 [Moles/Vol]26.8 mmol/PNsvehh29.0-31.0The Counts Include [address] [facility] Physician GroupComment on above:Performed By: #### BMP ####[place] [address] [place] [address] USACreatinine [Mass/Vol]0.73 mg/dLNormal0.60-1.20The Counts Include [address] [facility] Comment on above:Performed By: #### BMP ####[address] [address] USACreatinine Clr Calc Ewpclrte98.02NormalThe Counts Include 234 [facility] Physician GroupComment on above:Result Comment: PERFORMED BY:[address] [place], [place] [phone] MEDICAL JACKELYN VÁZQUEZ M.D.Performed By: #### BMP ####[address] [address] USAGFR/1.73 sq M.predicted MDRD (S/P/Bld) [Vol rate/Area]mL/min/{1.73_m2}NormalThe Counts Include 234 [facility] Physician GroupComment on above:Performed By: #### BMP ####[address] [address] USAGlucose [Mass/Vol]82 mg/dL Vopuzp07-148Roz Counts Include [address] [facility] Physician GroupComment on above:Result Comment: Random Glucose Reference Range is dependent on time and content of last meal. Glucose of more than 200 mg/dL in a nonstressed, ambulatory subject supports the diagnosis of Diabetes Mellitus. ADA recommended reference rangePerformed By: #### BMP ####[address] [address] USAPotassium [Moles/Vol]4.3 mmol/LNormal3.5-5.1The Counts Include [address] [facility] Physician [facility] Comment on above:Performed By: #### BMP ####[address] [address] USASodium [Moles/Vol]139 mmol/GKkwtdo467-173Zjn Counts Include [address] [facility] Physician GroupComment on above:Performed By: #### BMP ####[address] [address] USAUrea nitrogen [Mass/Vol]10 mg/dLNormal7-25The Counts Include [address] [facility] Physician GroupComment on above: Performed By: #### BMP ####[address] [address] USABasic Metabolic Panelon 56-55-0634Ecvoe gap [Moles/Vol]14.6 mmol/LNormal6.0-15.0The Counts Include [address] [facility] Physician GroupComment on above:Order Comment: pt in PTPerformed By: #### BMP ####[address] [address] USACalcium [Mass/Vol]8.3 mg/dLLow 8.6-10.3The Counts Include [address] [facility] Physician GroupComment on above:Order Comment: pt in PT Performed By: #### BMP ####[address] [address] USAChloride [Moles/Vol]101 mmol/RGvjimv69-819Fuq Counts Include [address] [facility] Physician GroupComment on above:Order Comment: pt in PTPerformed By: #### BMP ####[address] [address] USACO2 [Moles/Vol]25.7 mmol/DKndthn89.0-31.0The Counts Include [address] [facility] Physician GroupComment on above:Order Comment: pt in PTPerformed By: #### BMP ####[address] [address] USACreatinine [Mass/Vol]0.68 mg/dLNormal0.60-1.20The Counts Include [address] [facility] Physician GroupComment on above:Order Comment: pt in PTPerformed By: #### BMP ####[address] [address] USACreatinine Clr Calc Ydzhfqfg18.02NormalThe Counts Include [address] [facility] Physician GroupComment on above:Order Comment: pt in PTResult Comment: PERFORMED BY:[place] [address] [address] [place], [place] [phone] MEDICAL DIRECTORCARLOS VÁZQUEZ M.D.Performed By: #### BMP ####[address] [address] USAGFR/1.73 sq M.predicted MDRD (S/P/Bld) [Vol rate/Area]mL/min/{1.73_m2}Normal The Counts Include 234 [facility] Physician GroupComment on above:Order Comment: pt in PTPerformed By: #### BMP ####[place] [address] USAGlucose [Mass/Vol]112 mg/xXRsga39-303Rwf Counts Include [address] [facility] Comment on above:Order Comment: pt in PTResult Comment: Random Glucose Reference Range is dependent on time and content of last meal. Glucose of more than 200 mg/dL in a nonstressed, ambulatory subject supports the diagnosis of Diabetes Mellitus. ADA recommended reference rangePerformed By: #### BMP ####[place] [address] USAPotassium [Moles/Vol] 3.3 mmol/LLow3.5-5.1The Counts Include [address] [facility] Physician GroupComment on above:Order Comment: pt in PTPerformed By: #### BMP ####[place] [address] USASodium [Moles/Vol]138 mmol/SDourpl247-727Zuz Counts Include [address] [facility] Physician GroupComment on above:Order Comment: pt in PTPerformed By: #### BMP ####[place] [id number] USAUrea nitrogen [Mass/Vol]11 mg/dLNormal7-25The Counts Include [facility] Comment on above:Order Comment: pt in PTPerformed By: #### BMP ####[address] [address] USABasic Metabolic Panel on 07-87-4926Rsaqj gap [Moles/Vol]Not performedNormal6.0-15.0The Counts Include [facility] Physician GroupComment on above:Performed By: #### BMP ####[place] [id number] USACalcium [Mass/Vol]8.0 mg/dLLow 8.6-10.3The Counts Include [facility] GroupComment on above:Performed By: #### BMP ####[place] [id number] [place] Chloride [Moles/Vol]105 mmol/BDmmjov57-549Our Counts Include [facility] HospitalComment on above:Performed By: #### BMP ####[address] [address] USACO2 [Moles/Vol]25.3 mmol/PUwzgkw92.0-31.0The Counts Include [facility] GroupComment on above:Performed By: #### BMP ####[address] [address] USACreatinine [Mass/Vol] 0.66 mg/dLNormal0.60-1.20The Counts Include [facility] HospitalComment on above:Performed By: #### BMP ####[place] [id number] USACreatinine Clr Calc Tlhndqnt82.52NormalThCaribou Memorial Hospital Physician [facility] Comment on above:Result Comment: PERFORMED BY:[address] ABHISHEKGaloRadhaPLATTE CITY, [place] [phone] MEDICAL JACKELYN VÁZQUEZ M.D.Performed By: #### BMP ####[address] [address] USAGFR/1.73 sq M.predicted MDRD (S/P/Bld) [Vol rate/Area]mL/min/{1.73_m2}NormalThe Counts Include [facility] Comment on above:Performed By: #### BMP ####[address] [address] USAGlucose [Mass/Vol]67 mg/oTXwr45-352Mzl Counts Include [facility] Physician [facility] HospitalComment on above:Result Comment: Random Glucose Reference Range is dependent on time and content of last meal. Glucose of more than 200 mg/dL in a nonstressed, ambulatory subject supports the diagnosis of Diabetes Mellitus. ADA recommended reference rangePerformed By: #### BMP ####[address] [address] [place] PotassiumNormal3.5-5.1The Counts Include [facility] Physician [facility] HospitalComment on above:Result Comment: Specimen hemolyzed, redraw requestedPerformed By: #### BMP ####[address] [address] USASodium Wujjto780-083Kgf Counts Include [facility] GroupComment on above:Result Comment: Specimen hemolyzed, redraw requestedPerformed By: #### BMP ####[address] [address] USAUrea nitrogen [Mass/Vol]10 mg/dLNormal7-e Counts Include [facility] GroupComment on above: Performed By: #### BMP ####[address] [address] USACT femur RT wo conon 14-49-2531YJ femur RT wo con NormalThe Counts Include [facility] HospitalRedraw Potassiumon 61-87-6821Snsdlqazn [Moles/Vol]3.4 mmol/LLow3.5-5.1The Counts Include [facility]ician GroupComment on above: Order Comment: PREVIOUS SPECIMEN HEMOLYZEDResult Comment: PERFORMED BY:[address] [place], [place] [phone] MEDICAL DIRECTORCARLOS VÁZQUEZ M.D.Performed By: #### REDRAW K, REDRAW NA ####[address] [address] USARedraw Sodiumon 20-74-6144Vmgkmn [Moles/Vol]141 mmol/JGzlpqi583-530Yvq Counts Include [facility] GroupComment on above:Order Comment: PREVIOUS SPECIMEN HEMOLYZED Performed By: #### REDRAW K, REDRAW NA ####[address] [address] USAUS arterial duplex LE RTon 25-35-6476IE arterial duplex LE RTNormalThe St. [facility] University Health NetworkBasic Metabolic Panelon 52-93-0362Dmnua gap [Moles/Vol]11.9 mmol/LNormal6.0-15.0The Counts Include [facility]ician [facility] HospitalComment on above:Performed By: #### BMP, CBC ####[address] [address] USACalcium [Mass/Vol]8.4 mg/dLLow 8.6-10.3The Counts Include [facility] GroupComment on above:Performed By: #### BMP, CBC ####[address] [address] [place] Chloride [Moles/Vol]104 mmol/WUubmnu40-348Aiq Counts Include [facility] GroupComment on above:Performed By: #### BMP, CBC ####[address] [address] USACO2 [Moles/Vol]28.2 mmol/NGxmayi03.0-31.0The Counts Include [facility] GroupComment on above:Performed By: #### BMP, CBC ####[address] [address] [place] Creatinine [Mass/Vol]0.68 mg/dLNormal0.60-1.20The Counts Include [facility] Comment on above:Performed By: #### BMP, CBC ####[address] [address] USACreatinine Clr Calc Uipnkpwt81.12 NormalThe Counts Include [facility] GroupComment on above:Result Comment: PERFORMED BY:[address] ABHISHEKGaloBLOOMINGDALE, [place] [phone] MEDICAL DIRECTORCARLOS VÁZQUEZ M.D.Performed By: #### BMP, CBC ####[address] [address] [place] GFR/1.73 sq M.predicted MDRD (S/P/Bld) [Vol rate/Area]mL/min/{1.73_m2}NormalThe Counts Include [facility] GroupComment on above:Performed By: #### BMP, CBC ####[address] [address] USAGlucose [Mass/Vol]84 mg/hGKngwlv09-068Cmi Counts Include [facility] GroupComment on above: Result Comment: Random Glucose Reference Range is dependent on time and content of last meal. Glucose of more than 200 mg/dL in a nonstressed, ambulatory subject supports the diagnosis of Diabetes Mellitus. ADA recommended reference rangePerformed By: #### BMP, CBC ####[address] [place] [address] USAPotassium [Moles/Vol]3.1 mmol/LLow3.5-5.1The Counts Include [facility] GroupComment on above:Performed By: #### BMP, CBC ####[place] [phone] USASodium [Moles/Vol]141 mmol/DQxrbrf174-288Iow Counts Include [facility] GroupComment on above: Performed By: #### BMP, CBC ####[place] [phone] USAUrea nitrogen [Mass/Vol]9 mg/dLNormal7-25The Counts Include [facility] GroupComment on above:Performed By: #### BMP, CBC ####[place] [phone] [facility] Complete Blood Count Auto Diffon 08-47-9063Uvvnfqagn (Bld) [#/Vol]0.1 10*3/uL Normal0.0-0.2The Counts Include [address] [facility]ician [facility] HospitalComment on above:Result Comment: PERFORMED BY:[address] [place], [place] [phone] MEDICAL DIRECTORCARLOS VÁZQUEZ M.D.Performed By: #### BMP, CBC ####[place] [phone] USABasophils/100 WBC (Bld)1.3 %Normal.The Counts Include [facility] GroupComment on above:Performed By: #### BMP, CBC ####[place] [phone] USAEosinophils (Bld) [#/Vol]0.2 10*3/uLNormal 0.0-0.45The Counts Include [facility] GroupComment on above:Performed By: #### BMP, CBC ####[place] [id number] [place] Eosinophils/100 WBC (Bld)2.7 %Normal.The Counts Include [address] [facility] GroupComment on above:Performed By: #### BMP, CBC ####[place] [phone] USAErythrocyte distribution width (RBC) [Ratio]20.7 % High11.9-15.3The Counts Include [address] [facility] GroupComment on above:Performed By: #### BMP, CBC ####[place] [address] USAHematocrit (Bld) [Volume fraction]26.9 %Low34.0-46.4The Counts Include [address] [facility] GroupComment on above:Performed By: #### BMP, CBC ####[place] [address] USAHemoglobin (Bld) [Mass/Vol]9.1 g/dLLow 11.8-15.4The Counts Include [address] [facility] GroupComment on above:Performed By: #### BMP, CBC ####[place] [address] [place] Lymphocytes (Bld) [#/Vol]1.1 10*3/uLNormal1.00-4.8The Counts Include [address] [facility] Comment on above:Performed By: #### BMP, CBC ####[place] [address] USALymphocytes/100 WBC (Bld)13.6 %Normal. The Counts Include [address] [facility] GroupComment on above:Performed By: #### BMP, CBC ####[place] [address] USAMCH (RBC) [Entitic mass]29.9 pkQxzsxu23.7-34.3The Counts Include [address] [facility] GroupComment on above:Performed By: #### BMP, CBC ####[place] [address] USAMCV (RBC) [Entitic vol]88.6 wKXtrvwm57-350Bqm Counts Include [address] [facility] GroupComment on above:Performed By: #### BMP, CBC ####[place] [address] USAMean Corpuscular HGB Conc33.7 g/jHIflkzi52.0-35.0The Counts Include [address] [facility] GroupComment on above:Performed By: #### BMP, CBC ####[address] [address] USAMonocytes (Bld) [#/Vol]1.0 10*3/uLHigh0.0-0.8 The Counts Include [address] [facility] GroupComment on above:Performed By: #### BMP, CBC ####[place] [phone] [place] Monocytes/100 WBC (Bld)12.2 %Normal.The Counts Include [address] [facility] GroupComment on above:Performed By: #### BMP, CBC ####[place] [address] USANeutrophils (Bld) [#/Vol]5.9 10*3/uLNormal1.8-7.7The Counts Include [address] [facility] GroupComment on above:Performed By: #### BMP, CBC ####[place] [phone] [place] Neutrophils/100 WBC (Bld)70.2 %Normal.The Counts Include [address] [facility] GroupComment on above:Performed By: #### BMP, CBC ####[place] [phone] USANRBC%0.1 /100{WBC}Normal0-0.5The Counts Include [address] [facility]ician GroupComment on above:Performed By: #### BMP, CBC ####[place] [phone] USAPlatelet mean volume (Bld) [Entitic vol]7.4 fLNormal6.3-10.7The Counts Include [address] [facility]ician GroupComment on above: Performed By: #### BMP, CBC ####[address] [address] USAPlatelets (Bld) [#/Vol]640 10*3/wLUgem262-080Inc Counts Include [address] [facility] GroupComment on above:Performed By: #### BMP, CBC ####[place] [address] USARBC (Bld) [#/Vol]3.04 10*6/uLLow3.60-5.00The Counts Include [address] [facility] GroupComment on above:Performed By: #### BMP, CBC ####[address] [address] USAWBC (Bld) [#/Vol]8.5 10*3/uLNormal3.8-11.6The Counts Include [address] [facility] GroupComment on above:Performed By: #### BMP, CBC ####[address] [address] USAWhite Blood Count8.5 [CFU]/mLNormal3.8-11.6The Counts Include [address] [facility] GroupComment on above:Performed By: #### BMP, CBC ####[address] [address] USAECG 12 lead ECGon 32-31-8547YLU 12 lead ECGNormalThe Counts Include [facility] HospitalBasic Metabolic Panelon 77-20-8525Ojzec gap [Moles/Vol]15.7 mmol/LHigh6.0-15.0The Counts Include [address] [facility] GroupComment on above: Performed By: #### DIFF CBC, BMP ####[address] [address] USACalcium [Mass/Vol]7.9 mg/dLLow8.6-10.3The Counts Include [address] [facility] GroupComment on above:Performed By: #### DIFF CBC, BMP ####[address] [address] USAChloride [Moles/Vol] 101 mmol/DKtcovt36-525Hxa Counts Include [facility] GroupComment on above:Performed By: #### DIFF CBC, BMP ####[address] [address] USACO2 [Moles/Vol]24.2 mmol/SRtrlle86.0-31.0The Counts Include [address] [facility] GroupComment on above:Performed By: #### DIFF CBC, BMP ####[address] [address] [place] Creatinine [Mass/Vol]0.72 mg/dLNormal0.60-1.20The Counts Include [address] [facility] Comment on above:Performed By: #### DIFF CBC, BMP ####[address] [place] [address] [place] [address] USACreatinine Clr Calc Rzgwdbtu44.43 NormalThe Counts Include [address] [facility] GroupComment on above:Result Comment: PERFORMED BY:[address]ST[address] [place], [place] [phone] MEDICAL DIRECTORCARLOS VÁZQUEZ M.D.Performed By: #### DIFF CBC, BMP ####[address] [address] USAGFR/1.73 sq M.predicted MDRD (S/P/Bld) [Vol rate/Area]mL/min/{1.73_m2}Normal The Counts Include [address] [facility] GroupComment on above:Performed By: #### DIFF CBC, BMP ####[address] [address] USAGlucose [Mass/Vol]70 mg/tGYfqxlr60-074Qzh Counts Include [address] [facility] GroupComment on above: Result Comment: Random Glucose Reference Range is dependent on time and content of last meal. Glucose of more than 200 mg/dL in a nonstressed, ambulatory subject supports the diagnosis of Diabetes Mellitus. ADA recommended reference rangePerformed By: #### DIFF CBC, BMP ####[address] [address] USAPotassium [Moles/Vol]3.9 mmol/LNormal3.5-5.1 The Counts Include [address] [facility] GroupComment on above:Performed By: #### DIFF CBC, BMP ####[address] [address] USASodium [Moles/Vol]137 mmol/RNwopdu732-012Sel Counts Include [address] [facility] GroupComment on above: Performed By: #### DIFF CBC, BMP ####[address] [address] USAUrea nitrogen [Mass/Vol]11 mg/dLNormal7-25The Counts Include [address] [facility] GroupComment on above:Performed By: #### DIFF CBC, BMP ####[address] [address] USADiff and CBCon 63-02-2055Rsirpbmpixov Ql (Bld)MarkedNoFormerly [facility] Physician GroupComment on above:Performed By: #### DIFF CBC, BMP ####[place] [phone] USABand form neutrophils/100 WBC (Bld)3 %Normal0-5The Counts Include [address] [facility]ician GroupComment on above:Performed By: #### DIFF CBC, BMP ####[place] [address] USAEosinophils/100 WBC (Bld)1 %Normal1-3The Counts Include [address] [facility] Comment on above:Performed By: #### DIFF CBC, BMP ####[place] [address] USAErythrocyte distribution width (RBC) [Ratio]20.3 %High11.9-15.3The Counts Include [address] [facility]ician GroupComment on above: Performed By: #### DIFF CBC, BMP ####[place] [address] USAHematocrit (Bld) [Volume fraction]25.7 %Low34.0-46.4 The Counts Include [address] [facility]ician GroupComment on above:Performed By: #### DIFF CBC, BMP ####[place] [address] [place] Hemoglobin (Bld) [Mass/Vol]8.6 g/dLLow11.8-15.4The Counts Include [address] [facility] Comment on above:Performed By: #### DIFF CBC, BMP ####[place] [phone] USAHypochromasiaSlightNoFormerly [facility] Physician GroupComment on above:Performed By: #### DIFF CBC, BMP ####[place] [address] [place] Lymphocytes/100 WBC (Bld)10 %Bnz38-05Rlt Counts Include [address] [facility]ician GroupComment on above:Performed By: #### DIFF CBC, BMP ####[place] [phone] USAMCH (RBC) [Entitic mass]29.7 hgDnyrnc37.7-34.3 The Counts Include [address] [facility]ician GroupComment on above:Performed By: #### DIFF CBC, BMP ####[address] [address] USAMCV (RBC) [Entitic vol]88.7 rPSavcao04-569Umj Counts Include [address] [facility]ician GroupComment on above:Performed By: #### DIFF CBC, BMP ####[place] [id number] USAMean Corpuscular HGB Conc33.4 g/dLNormal 32.0-35.0The Counts Include [address] [facility]ician GroupComment on above:Performed By: #### DIFF CBC, BMP ####[address] [address] USAMetamyelocytes2 %High0-0The Counts Include [address] [facility] GroupComment on above: Performed By: #### DIFF CBC, BMP ####[place] [id number] USAMonocytes/100 WBC (Bld)9 %Normal2-11The Counts Include [address] [facility]ician GroupComment on above:Performed By: #### DIFF CBC, BMP ####[address] [address] USAMyelocytes3 %High0-0 The Counts Include [address] [facility]ician GroupComment on above:Performed By: #### DIFF CBC, BMP ####[address] [address] [place] Platelet EstimateIncreasedNormalNormHolzer Health Systeme Counts Include [address] [facility] Physician GroupComment on above:Performed By: #### DIFF CBC, BMP ####[address] [address] USAPlatelet mean volume (Bld) [Entitic vol]7.2 fL Normal6.3-10.7The Counts Include [address] [facility]ician GroupComment on above:Performed By: #### DIFF CBC, BMP ####[address] [address] USAPlatelet MorphologyNormalNormalNormLee Health [facility] Comment on above:Result Comment: PERFORMED BY:[address] [place], [place] [phone] MEDICAL DIRECTORCARLOS VÁZQUEZ M.D.Performed By: #### DIFF CBC, BMP ####[address] [address] USAPlatelets (Bld) [#/Vol]545 10*3/zAHxyv196-697Fjs Counts Include [address] [facility] GroupComment on above: Performed By: #### DIFF CBC, BMP ####[address] [address] USARBC (Bld) [#/Vol]2.90 10*6/uLLow3.60-5.00The Counts Include [address] [facility]ician GroupComment on above:Performed By: #### DIFF CBC, BMP ####[address] [address] [place] Segmented neutrophils/100 WBC (Bld)73 %Aijj43-83Fry Counts Include [address] [facility] Comment on above:Performed By: #### DIFF CBC, BMP ####[address] [address] USAWBC (Bld) [#/Vol]8.5 10*3/uLNormal 3.8-11.6The Counts Include [address] [facility]ician GroupComment on above:Performed By: #### DIFF CBC, BMP ####[address] [address] USAWhite Blood Count8.5 [CFU]/mLNormal3.8-11.6The Counts Include [address] [facility] Comment on above:Performed By: #### DIFF CBC, BMP ####[address] [address] USABasic Metabolic Panelon 11-21-2024 Anion gap [Moles/Vol]12.3 mmol/LNormal6.0-15.0The Counts Include [address] [facility] Comment on above:Performed By: #### BMP ####[address] [address] USACalcium [Mass/Vol]7.9 mg/dLLow8.6-10.3The Counts Include [address] [facility] GroupComment on above:Performed By: #### BMP ####[address] [address] USAChloride [Moles/Vol] 104 mmol/ILclagl10-977Per Counts Include [address] [facility] GroupComment on above:Performed By: #### BMP ####[address] [address] USACO2 [Moles/Vol]28.4 mmol/NDixrji00.0-31.0The Counts Include [address] [facility] Comment on above:Performed By: #### BMP ####[address] [address] USACreatinine [Mass/Vol]0.83 mg/dLNormal0.60-1.20 The Counts Include [address] [facility]ician GroupComment on above:Performed By: #### BMP ####[address] [address] [place] Creatinine Clr Calc Hymccoke31.69NormalThe Counts Include [address] [facility] Physician [facility] HospitalComment on above:Result Comment: PERFORMED BY:[address] [place], [place] [phone] MEDICAL JACKELYN VÁZQUEZ M.D.Performed By: #### BMP ####[address] [address] USAGFR/1.73 sq M.predicted MDRD (S/P/Bld) [Vol rate/Area]mL/min/{1.73_m2}NormalThe Counts Include [address] [facility] HospitalComment on above: Performed By: #### BMP ####[address] [address] USAGlucose [Mass/Vol]83 mg/vHZlincd58-849Pha Counts Include [address] [facility]ician GroupComment on above:Result Comment: Random Glucose Reference Range is dependent on time and content of last meal. Glucose of more than 200 mg/dL in a nonstressed, ambulatory subject supports the diagnosis of Diabetes Mellitus. ADA recommended reference rangePerformed By: #### BMP ####[address] [address] USAPotassium [Moles/Vol]3.7 mmol/LNormal3.5-5.1The Counts Include [address] [facility] Physician GroupComment on above:Performed By: #### BMP ####[address] [address] USASodium [Moles/Vol]141 mmol/RSkrscs821-261Bfr Counts Include [address] [facility] Physician GroupComment on above:Performed By: #### BMP ####[address] [address] USAUrea nitrogen [Mass/Vol]16 mg/dLNormal7-25The Counts Include [address] [facility]ician GroupComment on above:Performed By: #### BMP ####[address] [address] USABasic Metabolic Panel on 02-21-0537Lxntt gap [Moles/Vol]14.1 mmol/LNormal6.0-15.0The Counts Include [address] [facility] Physician GroupComment on above:Performed By: #### BMP, CBC ####[address] [address] USACalcium [Mass/Vol]8.0 mg/dLLow8.6-10.3The Counts Include [address] [facility] Physician GroupComment on above:Performed By: #### BMP, CBC ####[address] [address] USAChloride [Moles/Vol]103 mmol/PVnuumb01-181Pwk Counts Include [address] [facility] Comment on above:Performed By: #### BMP, CBC ####[address] [address] USACO2 [Moles/Vol]27.0 mmol/LNormal 21.0-31.0The Counts Include [address] [facility]ician GroupComment on above:Performed By: #### BMP, CBC ####[address] [address] [place] Creatinine [Mass/Vol]0.97 mg/dLNormal0.60-1.20The Counts Include [address] [facility] Comment on above:Performed By: #### BMP, CBC ####[address] [address] USACreatinine Clr Calc Xlkpvvgm63.12 NormalThe Counts Include [address] [facility] Physician GroupComment on above:Result Comment: PERFORMED BY:[address] [place], [place] [phone] MEDICAL DIRECTORCARLOS VÁZQUEZ M.D.Performed By: #### BMP, CBC ####[address] [place] [address] [place] GFR/1.73 sq M.predicted MDRD (S/P/Bld) [Vol rate/Area]mL/min/{1.73_m2}NormalThe Counts Include [address] [facility] Physician GroupComment on above:Performed By: #### BMP, CBC ####[address] [address] USAGlucose [Mass/Vol]76 mg/jHSfwaue79-174Led Counts Include [address] [facility] Physician GroupComment on above: Result Comment: Random Glucose Reference Range is dependent on time and content of last meal. Glucose of more than 200 mg/dL in a nonstressed, ambulatory subject supports the diagnosis of Diabetes Mellitus. ADA recommended reference rangePerformed By: #### BMP, CBC ####[address] [address] USAPotassium [Moles/Vol]3.1 mmol/LLow3.5-5.1The Counts Include [address] [facility] Physician GroupComment on above:Performed By: #### BMP, CBC ####[address] [address] USASodium [Moles/Vol]141 mmol/DSphkgv881-742Haa Counts Include [address] [facility] Physician GroupComment on above: Performed By: #### BMP, CBC ####[address] [address] USAUrea nitrogen [Mass/Vol]18 mg/dLNormal7-25The Counts Include [address] [facility] Physician GroupComment on above:Performed By: #### BMP, CBC ####[place] [id number] [facility] Complete Blood Count Auto Diffon 53-31-8823Ozzmokqha (Bld) [#/Vol]0.1 10*3/uL Normal0.0-0.2The Counts Include [address] [facility]ician GroupComment on above:Result Comment: PERFORMED BY:[address] [place] [id number] MEDICAL DIRECTORCARLOS VÁZQUEZ M.D.Performed By: #### BMP, CBC ####[place] [id number] USABasophils/100 WBC (Bld)1.3 %Normal.The Counts Include [facility] Physician GroupComment on above:Performed By: #### BMP, CBC ####[place] [id number] USAEosinophils (Bld) [#/Vol]0.3 10*3/uLNormal 0.0-0.45The Counts Include [facility] Physician GroupComment on above:Performed By: #### BMP, CBC ####[place] [id number] [place] Eosinophils/100 WBC (Bld)5.2 %Normal.The Counts Include [facility] Physician GroupComment on above:Performed By: #### BMP, CBC ####[place] [id number] USAErythrocyte distribution width (RBC) [Ratio]18.5 % High11.9-15.3The Counts Include [facility] Physician GroupComment on above:Performed By: #### BMP, CBC ####[place] [id number] USAHematocrit (Bld) [Volume fraction]24.4 %Low34.0-46.4The Counts Include [facility] Physician GroupComment on above:Performed By: #### BMP, CBC ####[place] [address] USAHemoglobin (Bld) [Mass/Vol]8.3 g/dLLow 11.8-15.4The Counts Include [facility] Physician GroupComment on above:Performed By: #### BMP, CBC ####[place] [address] [place] Lymphocytes (Bld) [#/Vol]1.3 10*3/uLNormal1.00-4.8The Counts Include [facility] Comment on above:Performed By: #### BMP, CBC ####[address] [address] USALymphocytes/100 WBC (Bld)19.4 %Normal. The Counts Include [facility] Physician GroupComment on above:Performed By: #### BMP, CBC ####[place] [id number] [facility] ([facility]) [Entitic mass]29.7 gjMmmlkc39.7-34.3The Counts Include [facility] Physician GroupComment on above:Performed By: #### BMP, CBC ####[address] [address] [facility]ENTERMCV (RBC) [Entitic vol]87.3 nWYqehsv79-399Pdq Counts Include [facility] Physician GroupComment on above:Performed By: #### BMP, CBC ####[place] [address] USAMean Corpuscular HGB Conc34.0 g/iWLhfqty70.0-35.0The Counts Include [facility] Physician GroupComment on above:Performed By: #### BMP, CBC ####[place] [id number] USAMonocytes (Bld) [#/Vol]0.6 10*3/uLNormal 0.0-0.8The Counts Include [facility] Physician GroupComment on above:Performed By: #### BMP, CBC ####[place] [id number] [place] Monocytes/100 WBC (Bld)9.4 %Normal.The Counts Include [facility] Physician GroupComment on above:Performed By: #### BMP, CBC ####[place] [id number] USANeutrophils (Bld) [#/Vol]4.2 10*3/uLNormal1.8-7.7The Counts Include [facility] Physician GroupComment on above:Performed By: #### BMP, CBC ####[place] [id number] [place] Neutrophils/100 WBC (Bld)64.7 %Normal.The Counts Include [address] [facility] Physician GroupComment on above:Performed By: #### BMP, CBC ####[place] [address] USANRBC%0.0 /100{WBC}Normal0-0.5The Counts Include [address] [facility] Physician GroupComment on above:Performed By: #### BMP, CBC ####[place] [address] USAPlatelet mean volume (Bld) [Entitic vol]7.5 fLNormal6.3-10.7The Counts Include [address] [facility] Physician GroupComment on above: Performed By: #### BMP, CBC ####[place] [address] USAPlatelets (Bld) [#/Vol]563 10*3/fGCbbg601-162Rnt Counts Include [facility] Physician GroupComment on above:Performed By: #### BMP, CBC ####[place] [address] USARBC (Bld) [#/Vol]2.79 10*6/uLLow3.60-5.00The Counts Include [address] [facility] Physician GroupComment on above:Performed By: #### BMP, CBC ####[place] [address] USAWBC (Bld) [#/Vol]6.5 10*3/uLNormal3.8-11.6The Counts Include [address] [facility] Physician GroupComment on above:Performed By: #### BMP, CBC ####[place] [address] USAWhite Blood Count6.5 [CFU]/mLNormal3.8-11.6The Counts Include [address] [facility] Physician GroupComment on above:Performed By: #### BMP, CBC ####[place] [address] USABasic Metabolic Panelon 64-16-5345Wcdwy gap [Moles/Vol]16.4 mmol/LHigh6.0-15.0The Counts Include [address] [facility] Physician GroupComment on above: Performed By: #### BMP ####[place] [address] USACalcium [Mass/Vol]8.3 mg/dLLow8.6-10.3The Counts Include [address] [facility] Physician GroupComment on above:Performed By: #### BMP ####[address] [address] USAChloride [Moles/Vol]102 mmol/L Oflygb87-065Dsp Counts Include [address] [facility] Physician GroupComment on above:Performed By: #### BMP ####[address] [address] USACO2 [Moles/Vol]26.2 mmol/HMvkifh14.0-31.0The Counts Include [facility] Physician GroupComment on above:Performed By: #### BMP ####[address] [address] USACreatinine [Mass/Vol]1.09 mg/dLNormal0.60-1.20The Counts Include [address] [facility] Physician GroupComment on above:Performed By: #### BMP ####[place] [id number] USACreatinine Clr Calc Tpimjpnj43.93NormalThe Counts Include [address] [facility] Physician GroupComment on above:Result Comment: PERFORMED BY:[place] [address] [place], [place] [phone] MEDICAL JACKELYN VÁZQUEZ M.D.Performed By: #### BMP ####[address] [address] USAGFR/1.73 sq M.predicted MDRD (S/P/Bld) [Vol rate/Area]53.309 mL/min/{1.73_m2} NormalThe Counts Include [address] [facility] Physician [facility] HospitalComment on above:Performed By: #### BMP ####[address] [address] USAGlucose [Mass/Vol]81 mg/hATnzavk09-096Try Counts Include [address] [facility] Physician GroupComment on above: Result Comment: Random Glucose Reference Range is dependent on time and content of last meal. Glucose of more than 200 mg/dL in a nonstressed, ambulatory subject supports the diagnosis of Diabetes Mellitus. ADA recommended reference rangePerformed By: #### BMP ####[place] [address] [place] [address] USAPotassium [Moles/Vol]3.6 mmol/LNormal3.5-5.1The Counts Include [address] [facility] Physician GroupComment on above:Performed By: #### BMP ####[address] [address] USASodium [Moles/Vol]141 mmol/CCkyags416-629Pan Counts Include [address] [facility] Physician GroupComment on above:Performed By: #### BMP ####[address] [address] USAUrea nitrogen [Mass/Vol]20 mg/dLNormal7-25The Counts Include [address] [facility] Comment on above:Performed By: #### BMP ####[address] [address] USAClostridium Difficileon 54-03-7917Jpnbqhzobxq DifficileNegativeNormalNegativeThe Counts Include [facility] Physician GroupComment on above: Order Comment: > or = to 3 loose/watery stools in the last 24 HRS? Y Is patient on promotility agents or tube feeding? NResult Comment: Testing performed by RT- PCRPERFORMED BY:[place] [address] [place], [place] [phone] MEDICAL JACEKLYN VÁZQUEZ M.D.Performed By: #### CDT, LACTO SWBC ####[address] [address] USAComplete Blood Count Auto Diffon 33-96-4484Qshhrnepu (Bld) [#/Vol]0.1 10*3/uLNormal0.0-0.2The Counts Include [address] [facility] Physician GroupComment on above:Result Comment: PERFORMED BY:[place] [address] [place], [place] [phone] MEDICAL JACKELYN VÁZQUEZ M.D.Performed By: #### CBC ####[address] [address] USABasophils/100 WBC (Bld)1.1 %Normal.The Counts Include [address] [facility] Physician GroupComment on above:Performed By: #### CBC ####[place] [address] USAEosinophils (Bld) [#/Vol]0.3 10*3/uLNormal0.0-0.45The Counts Include [address] [facility] Physician GroupComment on above:Performed By: #### CBC ####[place] [address] USAEosinophils/100 WBC (Bld)3.9 %Normal.The Counts Include [address] [facility] Physician GroupComment on above:Performed By: #### CBC ####[place] [address] USAErythrocyte distribution width (RBC) [Ratio]20.1 % High11.9-15.3The Counts Include [address] [facility] Physician GroupComment on above:Performed By: #### CBC ####[place] [address] [place] Hematocrit (Bld) [Volume fraction]22.3 %Low34.0-46.4The Counts Include [address] [facility] Physician GroupComment on above:Performed By: #### CBC ####[place] [address] USAHemoglobin (Bld) [Mass/Vol]7.4 g/dLLow 11.8-15.4The Counts Include [address] [facility] Physician GroupComment on above:Performed By: #### CBC ####[place] [address] [place] Lymphocytes (Bld) [#/Vol]0.8 10*3/uLLow1.00-4.8The Counts Include [address] [facility] Comment on above:Performed By: #### CBC ####[place] [address] USALymphocytes/100 WBC (Bld)12.0 %Normal.The Counts Include [address] [facility] Physician GroupComment on above:Performed By: #### CBC ####[place] [address] USAMCH (RBC) [Entitic mass]29.5 mrWjlpof20.7-34.3The Counts Include [address] [facility] Physician GroupComment on above: Performed By: #### CBC ####[place] [address] USAMCV (RBC) [Entitic vol]88.5 xKAxycwc77-118Evz Counts Include [address] [facility] Physician GroupComment on above:Performed By: #### CBC ####[place] [address] USAMean Corpuscular HGB Conc33.3 g/oUBgglqb10.0-35.0The Counts Include [address] [facility] Physician GroupComment on above: Performed By: #### CBC ####[place] [address] USAMonocytes (Bld) [#/Vol]1.1 10*3/uLHigh0.0-0.8The Counts Include [address] [facility] Physician GroupComment on above:Performed By: #### CBC ####[place] [address] USAMonocytes/100 WBC (Bld)15.6 %Normal.The Counts Include [address] [facility]ician GroupComment on above:Performed By: #### CBC ####[place] [address] USANeutrophils (Bld) [#/Vol]4.7 10*3/uLNormal1.8-7.7The Counts Include [address] [facility] Physician GroupComment on above:Performed By: #### CBC ####[place] [address] USANeutrophils/100 WBC (Bld)67.4 %Normal. The Counts Include [address] [facility] Physician GroupComment on above:Performed By: #### CBC ####[place] [address] USANRBC% 0.1 /100{WBC}Normal0-0.5The Counts Include [address] [facility]ician GroupComment on above:Performed By: #### CBC ####[place] [address] USAPlatelet mean volume (Bld) [Entitic vol]8.2 fLNormal6.3-10.7The Counts Include [address] [facility] Physician GroupComment on above:Performed By: #### CBC ####[address] [address] USAPlatelets (Bld) [#/Vol]446 10*3/qEPqzfuf824-548Nhb Counts Include [address] [facility]ician GroupComment on above: Performed By: #### CBC ####[place] [id number] USARBC (Bld) [#/Vol]2.52 10*6/uLLow3.60-5.00The Counts Include [address] [facility] Physician GroupComment on above:Performed By: #### CBC ####[place] [id number] USAWBC (Bld) [#/Vol]7.0 10*3/uLNormal3.8-11.6The Counts Include [address] [facility] Physician GroupComment on above:Performed By: #### CBC ####[place] [address] USAWhite Blood Count7.0 [CFU]/mLNormal3.8-11.6The Counts Include [address] [facility] Physician [facility] Comment on above:Performed By: #### CBC ####[place] [id number] USAGastrointestinal Profile, PCRon 11-19-2024 Adenovirus F 40/41Not detectedNormalNot DetectedThe [facility] Comment on above:Performed By: #### GI PROFILE, STL ####[facility] , AstrovirusNot detectedNormalNot DetectedThe Counts Include [address] [facility] Physician GroupComment on above:Performed By: #### GI PROFILE, STL ####[facility] ,C Difficile Toxin A/BNot detectedNormalNot DetectedThe Counts Include [address] [facility] Physician [facility] HospitalComment on above:Performed By: #### GI PROFILE, STL ####[facility] ,Campylobacter Not detectedNormalNot DetectedThe Counts Include [address] [facility] Physician [facility] HospitalComment on above: Performed By: #### GI PROFILE, STL ####[facility] ,CryptosporidiumNot detectedNormalNot DetectedThe Counts Include [address] [facility] Physician GroupComment on above: Performed By: #### GI PROFILE, STL ####[facility] ,Cyclospora cayetanensisNot detectedNormalNot DetectedThe Counts Include [address] [facility]ician GroupComment on above:Performed By: #### GI PROFILE, STL ####[facility] ,E coli D157Gqb applicableNormalNot DetectedThe Counts Include [address] [facility]ician GroupComment on above:Performed By: #### GI PROFILE, STL ####[facility] ,Entamoeba histolyticaNot detectedNormalNot DetectedThe Counts Include [address] [facility]ician GroupComment on above:Performed By: #### GI PROFILE, STL ####[facility] , Enteroaggregative E coliNot detectedNormalNot DetectedThe Counts Include [address] [facility]ician GroupComment on above:Performed By: #### GI PROFILE, STL ####[facility] ,Enteropathogenic E coliNot detectedNormalNot DetectedThe Counts Include [address] [facility] GroupComment on above:Performed By: #### GI PROFILE, STL ####[facility] ,Enterotoxigenic E coliNot detectedNormalNot DetectedThe Counts Include [address] [facility]ician GroupComment on above:Performed By: #### GI PROFILE, STL ####[facility] ,Giardia lambliaNot detectedNormalNot DetectedThe Counts Include [address] [facility]ician GroupComment on above:Performed By: #### GI PROFILE, STL ####[facility] ,Norovirus GI/GIINot detectedNormalNot DetectedThe Counts Include [address] [facility]ician GroupComment on above:Performed By: #### GI PROFILE, STL ####[facility] ,Plesiomonas shigelloidesNot detectedNormalNot DetectedThe Counts Include [address] [facility]ician GroupComment on above:Performed By: #### GI PROFILE, STL ####[facility] ,Rotavirus ANot detectedNormalNot DetectedThe Counts Include [address] [facility]ician GroupComment on above:Performed By: #### GI PROFILE, STL ####[facility] ,SalmonellaNot detectedNormalNot DetectedThe Counts Include [address] [facility]ician GroupComment on above:Performed By: #### GI PROFILE, STL ####[facility] ,SapovirusNot detectedNormalNot DetectedThe Counts Include [address] [facility] GroupComment on above:Result Comment: Performed at: [address] [id number] LabDirector: Joyce Castillo MD, Phone: [phone] BY:[facility] DONNIE SNYDERRadhaHUIBROOKS, [place] [phone] MEDICAL DIRECTORCARLOS VÁZQUEZ M.D.Performed By: #### GI PROFILE, STL ####[facility] ,Prwla-thtfa-yqcjzaxwr E coli Not detectedNormalNot DetectedThe Counts Include [address] [facility] Physician GroupComment on above: Performed By: #### GI PROFILE, STL ####[facility] , Shigella/Enteroinvasive E coliNot detectedNormalNot DetectedThe Counts Include [address] [facility] Physician GroupComment on above:Performed By: #### GI PROFILE, STL ####[facility] ,VibrioNot detectedNormalNot DetectedThe Counts Include [address] [facility] Comment on above:Performed By: #### GI PROFILE, STL ####[facility] , Vibrio choleraeNot detectedNormalNot DetectedThe Counts Include [address] [facility] Comment on above:Performed By: #### GI PROFILE, STL ####[facility] , Yersinia enterocoliticaNot detectedNormalNot DetectedThe Counts Include [address] [facility] Physician GroupComment on above:Performed By: #### GI PROFILE, STL ####[facility] ,Lactic Acidon 65-10-6853Jmesslq [Moles/Vol]1.0 mmol/LNormal0.5-1.9 The Counts Include [address] [facility]ician GroupComment on above:Result Comment: Lactic Acid reference range has been updated to 0.5 ? 1.9 mmol/L and the critical range of 2.0 or greater.PERFORMED BY:[place] [address] [place], [place] [id number] MEDICAL JACKELYN VÁZQUEZ M.D.Performed By: #### LACTIC ####[address] [address] USALactoferrin, Stool WBCon 91-41-8347Eiinxepdalk, Stool WBCNormalThe Counts Include [address] [facility] Physician GroupComment on above:Performed By: #### CDT, LACTO SWBC ####[address] [address] USALeukoReduced RBCon 05-90-8296LdacaVecwkzx RBCTRANSFUSED 11/19/24 1410 NormalThe Counts Include [address] [facility] Physician GroupPotassiumon 68-61-7027Nhkzzkzdu [Moles/Vol] 3.1 mmol/LLow3.5-5.1The Counts Include [address] [facility] Physician GroupComment on above:Result Comment: PERFORMED BY:[place] [address] [place], [place] [phone] MEDICAL JACKELYN VÁZQUEZ M.D.Performed By: #### K ####[address] [address] USAStool Bacterial Panelon 63-10-9957PfzdbwsqlnwleLpuqlaitHfdilnWezulmjwSds Counts Include [address] [facility] Physician GroupComment on above:Result Comment: Campylobacter test includes C. jejuni and C. coli.Performed By: #### ENT PARASITIC P, ENT BACT PANEL ####[address] [address] [place] Salmonella SpeciesNegativeNormalNegativeThe Counts Include [address] [facility] Physician GroupComment on above:Result Comment: Testing performed by RT-PCRPERFORMED BY:[address] [address] [place], [place] [phone] MEDICAL JACKELYN VÁZQUEZ M.D.Performed By: #### ENT PARASITIC P, ENT BACT PANEL ####[address] [address] USAShiga Toxin (E coli O157+oth)NegativeNormalNegativeThe Counts Include [address] [facility] Comment on above:Performed By: #### ENT PARASITIC P, ENT BACT PANEL ####[address] [address] [facility] Shigella SpeciesNegativeNormalNegativePhysicians [facility] Physician GroupComment on above:Result Comment: Shigella sp. test includes Shigella species and Enteroinvasive E. coli (EIEC).Performed By: #### ENT PARASITIC P, ENT BACT PANEL ####[address] [address] USAStool Occult Blood (Guaiac)on 98-39-9388Ndkbf Occult Blood (Guaiac)NormalThe Counts Include [address] [facility] Physician GroupComment on above:Performed By: #### OB(GUAIAC) ####[address] [address]BOJAkged Parasitic Panel on 64-43-1509Tsqfksrolwggfgn (C.hominis+parNegativeNormalNegativeThe Counts Include [address] [facility] Physician GroupComment on above:Result Comment: Cryptosporidium test includes C. hominis and C. parvum.Performed By: #### ENT PARASITIC P, ENT BACT PANEL ####[address] [address] [facility] Entamoeba histolyticaNegativeNormalNegativePhysicians [facility] Physician GroupComment on above:Result Comment: Testing performed by RT-PCRPERFORMED BY:[address] [id number] MEDICAL JACKELYN VÁZQUEZ M.D.Performed By: #### ENT PARASITIC P, ENT BACT PANEL ####[address] [address] USAGiardia lambliaNegativeNormalNegativeThe Counts Include [address] [facility] Physician GroupComment on above:Performed By: #### ENT PARASITIC P, ENT BACT PANEL ####[address] [address] USAType and Screenon 11-19-2024 ABO and Rh group Nom (Bld)Blood group A Rh(D) positiveNormalThe Counts Include [address] [facility] Physician GroupComment on above:Order Comment: Transfuse now? Y Number of units to transfuse now? 1Result Comment: PERFORMED BY:[address] [address] [place], [place] [id number] MEDICAL JACKELYN VÁZQUEZ M.D.Basic Metabolic Panelon 40-43-6971Jpwtr gap [Moles/Vol]15.6 mmol/LHigh6.0-15.0The Counts Include [address] Physician GroupComment on above: Performed By: #### DIFF CBC, BMP ####[address] [address] USACalcium [Mass/Vol]8.0 mg/dLLow8.6-10.3The Counts Include [address] Physician GroupComment on above:Performed By: #### DIFF CBC, BMP ####[address] [address] USAChloride [Moles/Vol] 100 mmol/XFtrxkz86-657Tir Counts Include [address] [facility] Physician GroupComment on above:Performed By: #### DIFF CBC, BMP ####[address] [address] USACO2 [Moles/Vol]27.7 mmol/NMpzhzy21.0-31.0The Counts Include [address] Physician GroupComment on above:Performed By: #### DIFF CBC, BMP ####[address] [address] [place] Creatinine [Mass/Vol]1.20 mg/dLNormal0.60-1.20The Counts Include [address] Comment on above:Performed By: #### DIFF CBC, BMP ####[address] [address] USACreatinine Clr Calc Kpkkwpqn10.58 NormalThe Counts Include [address] Physician GroupComment on above:Result Comment: PERFORMED BY:[address] [address] [place], [place] [phone] MEDICAL JACKELYN VÁZQUEZ M.D.Performed By: #### DIFF CBC, BMP ####[address] [address] USAGFR/1.73 sq M.predicted MDRD (S/P/Bld) [Vol rate/Area]47.500 mL/min/{1.73_m2} NormalThe Counts Include [address] Physician GroupComment on above:Performed By: #### DIFF CBC, BMP ####[address] [address] [place] Glucose [Mass/Vol]73 mg/zARlkdrx53-809Rwh Counts Include [address] [facility] Physician GroupComment on above:Result Comment: Random Glucose Reference Range is dependent on time and content of last meal. Glucose of more than 200 mg/dL in a nonstressed, ambulatory subject supports the diagnosis of Diabetes Mellitus. ADA recommended reference rangePerformed By: #### DIFF CBC, BMP ####[address] [address] USAPotassium [Moles/Vol]2.3 mmol/LOff scale low3.5-5.1The Counts Include [address] [facility] Physician GroupComment on above:Result Comment: Critical Result Called to and read back by: KEY ALMAZAN at: 11/18/2024 05:52:36 by:[id number] By: #### DIFF CBC, BMP ####[address] [address] USASodium [Moles/Vol]141 mmol/LNormal 136-145The Counts Include [address] [facility] Physician GroupComment on above:Performed By: #### DIFF CBC, BMP ####[address] [address] USAUrea nitrogen [Mass/Vol]21 mg/dLNormal7-25The Counts Include [address] Comment on above:Performed By: #### DIFF CBC, BMP ####[address] [address] USADiff and CBCon 62-07-3434Jvhnjwhjokhr Ql (Bld)ModerateNormalThe Counts Include [address] [facility] Physician GroupComment on above:Performed By: #### DIFF CBC, BMP ####[address] [address] USABand form neutrophils/100 WBC (Bld)5 %Normal0-5The Counts Include [address] [facility] Physician GroupComment on above:Performed By: #### DIFF CBC, BMP ####[address] [address] [place] Basophils/100 WBC (Bld)1 %Normal0-2The Counts Include [address] [facility] Physician GroupComment on above:Performed By: #### DIFF CBC, BMP ####[address] [address] USAEosinophils/100 WBC (Bld)2 %Normal1-3The Counts Include [address] [facility] Physician GroupComment on above:Performed By: #### DIFF CBC, BMP ####[address] [address] [place] Erythrocyte distribution width (RBC) [Ratio]19.2 %High11.9-15.3The Counts Include [address] [facility] Physician GroupComment on above:Performed By: #### DIFF CBC, BMP ####[address] [address] USAGiant Platelet Tally2 /100{WBC}NormalThe Counts Include [facility] Physician GroupComment on above:Performed By: #### DIFF CBC, BMP ####[address] [address] USAHematocrit (Bld) [Volume fraction]22.7 %Low34.0-46.4The Counts Include [facility] Physician GroupComment on above:Performed By: #### DIFF CBC, BMP ####[address] [address] USAHemoglobin (Bld) [Mass/Vol]7.6 g/dLLow11.8-15.4The Counts Include [facility] Physician GroupComment on above: Performed By: #### DIFF CBC, BMP ####[address] [address] USAHypochromasiaSlightNormalThe Counts Include [facility] Physician GroupComment on above:Performed By: #### DIFF CBC, BMP ####[address] [address] USALymphocytes/100 WBC (Bld)3 % Gij83-47Ihz Counts Include [facility] Physician GroupComment on above:Performed By: #### DIFF CBC, BMP ####[address] [address] USAMacrocytosisSlightNormLee Health Cocon[facility] [place] Physician GroupComment on above: Performed By: #### DIFF CBC, BMP ####[place] [id number] [facility] ([facility]) [Entitic mass]29.2 lrAvntqh25.7-34.3The Counts Include [facility] Physician GroupComment on above:Performed By: #### DIFF CBC, BMP ####[place] [phone] [facility] ([facility]BC) [Entitic vol]87.6 bFOglovz66-636Yna Counts Include [facility] Physician GroupComment on above:Performed By: #### DIFF CBC, BMP ####[place] [address] USAMean Corpuscular HGB Conc33.3 g/dLNormal 32.0-35.0The Counts Include [facility] Physician GroupComment on above:Performed By: #### DIFF CBC, BMP ####[place] [address] USAMetamyelocytes1 %High0-0The Counts Include [facility] Physician GroupComment on above: Performed By: #### DIFF CBC, BMP ####[place] [address] USAMonocytes/100 WBC (Bld)20 %High2-11The Counts Include [facility] Physician GroupComment on above:Performed By: #### DIFF CBC, BMP ####[place] [address] USAPlatelet Estimate IncreasedNormalNormLee Health [place] [place] Physician GroupComment on above:Performed By: #### DIFF CBC, BMP ####[place] [phone] USAPlatelet mean volume (Bld) [Entitic vol]8.1 fLNormal6.3-10.7The Counts Include [facility] Physician GroupComment on above:Performed By: #### DIFF CBC, BMP ####[place] [address] [place] Platelet MorphologyNormalNormalNoFormerly [facility] Physician GroupComment on above:Result Comment: PERFORMED BY:[address] [place], [place] [id number] MEDICAL DIRECTORCARLOS VÁZQUEZ M.D.Performed By: #### DIFF CBC, BMP ####[address] [address] USAPlatelets (Bld) [#/Vol]540 10*3/vUOylv317-351 The Counts Include [facility] Physician GroupComment on above:Performed By: #### DIFF CBC, BMP ####[address] [address] [place] PolychromasiaSlightNormLee Health [facility]ocon[facility] Physician GroupComment on above:Performed By: #### DIFF CBC, BMP ####[address] [address] USARBC (Bld) [#/Vol]2.59 10*6/uLLow3.60-5.00The Counts Include [facility] Physician GroupComment on above:Performed By: #### DIFF CBC, BMP ####[address] [address] USARBC morphology finding Nom (Bld)NormalNormalNoFormerly [facility] Physician [facility] Comment on above:Performed By: #### DIFF CBC, BMP ####[address] [address] USAReactive Lymphocytes3 %Normal0-12The Counts Include [facility] Physician [facility] HospitalComment on above:Performed By: #### DIFF CBC, BMP ####[address] [address] [place] Segmented neutrophils/100 WBC (Bld)66 %Pnarab02-82Jrd Counts Include [address] [facility] Physician [facility] Comment on above:Performed By: #### DIFF CBC, BMP ####[address] [address] USAWBC (Bld) [#/Vol]8.9 10*3/uLNormal 3.8-11.6The Counts Include [facility] Physician GroupComment on above:Performed By: #### DIFF CBC, BMP ####[address] [place] [address] USAWhite Blood Count8.9 [CFU]/mLNormal3.8-11.6The Counts Include [facility] Comment on above:Performed By: #### DIFF CBC, BMP ####[address] [address] USAECG 12 lead ECGon 80-14-1581EIQ 12 lead ECGNormalThe Counts Include [facility] Physician [facility] HospitalPotassiumon 23-48-2205Lpbblrvbt [Moles/Vol]2.9 mmol/LOff scale low3.5-5.1The Counts Include [address] [facility] Physician [facility] HospitalComment on above:Result Comment: Critical Result Called to and read back by: NANCI MCDONALD at: 11/18/2024 13:54:38 by:RADHAERFORMED BY:[address] ABHISHEKGaloRadhaPLATTE CITY, [place] [id number] MEDICAL DIRECTORCARLOS VÁZQUEZ M.D.Performed By: #### K ####[address] [address] USAComprehensive Metabolic Panelon 13-75-0537Lxcovwp [Mass/Vol]3.0 g/dLLow3.5-5.7The Counts Include [address] [facility] Physician [facility] HospitalComment on above: Performed By: #### CMP, PAB, MG, DIFF CBC ####[address] [address] USAAlbumin/Globulin [Mass ratio]1.4 {ratio} NormalThe Counts Include [facility] Physician [facility] HospitalComment on above:Performed By: #### CMP, PAB, MG, DIFF CBC ####[address] [address] USAALP [Catalytic activity/Vol]102 U/DPylvqu82-680Zli Counts Include [facility] Physician [facility] HospitalComment on above:Performed By: #### CMP, PAB, MG, DIFF CBC ####[address] [address] USAALT [Catalytic activity/Vol]57 U/LHigh7-52The Counts Include [facility] Physician [facility] HospitalComment on above: Performed By: #### CMP, PAB, MG, DIFF CBC ####[place] [address] [place] [address] USAAnion gap [Moles/Vol]16.3 mmol/LHigh6.0-15.0 The Counts Include [address] [facility] Physician GroupComment on above:Performed By: #### CMP, PAB, MG, DIFF CBC ####[place] [id number] [place] [address] USAAST [Catalytic activity/Vol]20 U/RKmhsou82-95Cgd Counts Include [facility] Comment on above:Performed By: #### CMP, PAB, MG, DIFF CBC ####[place] [address] [place] [address] USABilirubin [Mass/Vol] 1.4 mg/dLHigh0.3-1.0The Counts Include [address] [facility] Physician GroupComment on above:Result Comment: Samples from patients who have taken Naproxen have shown spurious elevation in Total Bilirubin levels. A metabolite of Naproxen, O- desmethylnaproxen, has been shown to interfere with the Aminah-Mark method for measuring Total Bilirubin.Performed By: #### CMP, PAB, MG, DIFF CBC ####[place] [address] [place] [address] USACalcium [Mass/Vol]8.4 mg/dLLow8.6-10.3The Counts Include [address] [facility] Physician GroupComment on above: Performed By: #### CMP, PAB, MG, DIFF CBC ####[address] [address] USAChloride [Moles/Vol]105 mmol/WRkmzkv55-645Txt Counts Include [facility] Physician GroupComment on above:Performed By: #### CMP, PAB, MG, DIFF CBC ####[address] [address] [place] CO2 [Moles/Vol]23.9 mmol/RXeicxt41.0-31.0The Counts Include [address] [facility] Physician GroupComment on above:Performed By: #### CMP, PAB, MG, DIFF CBC ####[address] [address] USACreatinine [Mass/Vol]1.52 mg/dLHigh 0.60-1.20The Counts Include [address] [facility] Physician GroupComment on above:Performed By: #### CMP, PAB, MG, DIFF CBC ####[place] [address] USACreatinine Clr Calc Nhgvcekf49.97NormLee Health [facility] [place] Physician [facility] Comment on above:Performed By: #### CMP, PAB, MG, DIFF CBC ####[place] [address] USAGFR/1.73 sq M.predicted MDRD (S/P/Bld) [Vol rate/Area]35.768 mL/min/{1.73_m2}NormalThe Counts Include [facility] Physician GroupComment on above:Performed By: #### CMP, PAB, MG, DIFF CBC ####[place] [address] [place] Globulin (S) [Mass/Vol]2.1 g/dLMorton Plant [facility] Physician [facility] HospitalComment on above:Performed By: #### CMP, PAB, MG, DIFF CBC ####[place] [address] USAGlucose [Mass/Vol]75 mg/tMZblvym64-329 The Counts Include [address] [facility] Physician GroupComment on above:Result Comment: Random Glucose Reference Range is dependent on time and content of last meal. Glucose of more than 200 mg/dL in a nonstressed, ambulatory subject supports the diagnosis of Diabetes Mellitus. ADA recommended reference rangePerformed By: #### CMP, PAB, MG, DIFF CBC ####[place] [address] USAPotassium [Moles/Vol]3.2 mmol/LLow3.5-5.1The Counts Include [address] [facility] Physician [facility] Comment on above:Performed By: #### CMP, PAB, MG, DIFF CBC ####[place] [address] USAProtein [Mass/Vol]5.1 g/dLLow6.4-8.9The Counts Include [facility] Physician GroupComment on above:Performed By: #### CMP, PAB, MG, DIFF CBC ####[place] [address] USASodium [Moles/Vol]142 mmol/CHumgig689-428Ivn Counts Include [address] [facility] Physician GroupComment on above:Performed By: #### CMP, PAB, MG, DIFF CBC ####[address] Urea nitrogen [Mass/Vol]29 mg/dLHigh7-25The Counts Include [address] [facility] Physician GroupComment on above:Performed By: #### CMP, PAB, MG, DIFF CBC ####[place] [address] USADiff and CBCon 37-04-4987Vxnynvwmyyuc Ql (Bld)ModerateNormalThe Counts Include [address] [facility] Physician GroupComment on above:Performed By: #### CMP, PAB, MG, DIFF CBC ####[address] form neutrophils/100 WBC (Bld)13 %High0-5The Counts Include [address] [facility] Physician GroupComment on above:Performed By: #### CMP, PAB, MG, DIFF CBC ####[address] Basophils/100 WBC (Bld)2 %Normal0-2The Counts Include [address] [facility] Physician GroupComment on above:Performed By: #### CMP, PAB, MG, DIFF CBC ####[place] [address] USAEosinophils/100 WBC (Bld)6 %High1-3The Counts Include [address] [facility] Physician GroupComment on above:Performed By: #### CMP, PAB, MG, DIFF CBC ####[address] Erythrocyte distribution width (RBC) [Ratio]15.7 %High11.9-15.3The Counts Include [address] [facility] Physician GroupComment on above:Performed By: #### CMP, PAB, MG, DIFF CBC ####[address] Hematocrit (Bld) [Volume fraction]25.0 %Low34.0-46.4The Counts Include [address] [facility] Physician GroupComment on above:Performed By: #### CMP, PAB, MG, DIFF CBC ####[place] [id number] USAHemoglobin (Bld) [Mass/Vol]8.2 g/dLLow11.8-15.4The Counts Include [address] [facility] Physician GroupComment on above: Performed By: #### CMP, PAB, MG, DIFF CBC ####[place] [address] USAHypochromasiaModerateNoFormerly [facility] Physician GroupComment on above:Performed By: #### CMP, PAB, MG, DIFF CBC ####[place] [phone] USALarge PlateletsSFirstHealth Physician GroupComment on above:Result Comment: PERFORMED BY:[address] ABHISHEKGaloMARY VILLE [phone] MEDICAL JACKELYN VÁZQUEZ M.D.Performed By: #### CMP, PAB, MG, DIFF CBC ####[place] [address] USALymphocytes/100 WBC (Bld)5 %Dlk64-79Awa Counts Include [address] [facility] Physician [facility] HospitalComment on above:Performed By: #### CMP, PAB, MG, DIFF CBC ####[address] MacrocytosisVidant Pungo Hospital Physician [facility] HospitalComment on above:Performed By: #### CMP, PAB, MG, DIFF CBC ####[place] [address] USAMCH (RBC) [Entitic mass]28.8 trXwwuvr64.7-34.3The Counts Include [address] [facility] Physician GroupComment on above:Performed By: #### CMP, PAB, MG, DIFF CBC ####[place] [address] USAMCV (RBC) [Entitic vol]87.9 dMFvbycc68-530Bqv Counts Include [address] [facility] Physician [facility] HospitalComment on above:Performed By: #### CMP, PAB, MG, DIFF CBC ####[place] [address] USAMean Corpuscular HGB Conc32.8 g/dL Cmhkwn04.0-35.0The Counts Include [address] [facility] Physician GroupComment on above:Performed By: #### CMP, PAB, MG, DIFF CBC ####[address] [address] USAMetamyelocytes2 %High0-0The Counts Include [address] [facility] Physician GroupComment on above:Performed By: #### CMP, PAB, MG, DIFF CBC ####[place] [id number] USAMonocytes/100 WBC (Bld)12 %High2-11The Counts Include [address] [facility] Physician GroupComment on above:Performed By: #### CMP, PAB, MG, DIFF CBC ####[place] [address] USAPlatelet EstimateNormalNormalNormLee Health [facility] Physician GroupComment on above:Performed By: #### CMP, PAB, MG, DIFF CBC ####[place] [id number] [place] Platelet mean volume (Bld) [Entitic vol]9.1 fLNormal6.3-10.7The Counts Include [address] [facility] Physician GroupComment on above:Performed By: #### CMP, PAB, MG, DIFF CBC ####[place] [id number] [place] Platelets (Bld) [#/Vol]368 10*3/zTBmnffx650-471Opx Counts Include [address] [facility] Comment on above:Performed By: #### CMP, PAB, MG, DIFF CBC ####[place] [phone] USAPoikilocytosisSlight NormalThe Counts Include [address] [facility] Physician GroupComment on above:Performed By: #### CMP, PAB, MG, DIFF CBC ####[address] [address] USAPolychromasiaSlightNormalThCaribou Memorial Hospital Physician GroupComment on above: Performed By: #### CMP, PAB, MG, DIFF CBC ####[place] [id number] USARBC (Bld) [#/Vol]2.84 10*6/uLLow3.60-5.00The Counts Include [address] [facility] Physician GroupComment on above:Performed By: #### CMP, PAB, MG, DIFF CBC ####[place] [address] [place] SchistocytesVidant Pungo Hospital Physician GroupComment on above:Performed By: #### CMP, PAB, MG, DIFF CBC ####[place] [address] USASegmented neutrophils/100 WBC (Bld)60 %Kqiclf31-91 The Counts Include [address] [facility] Physician GroupComment on above:Performed By: #### CMP, PAB, MG, DIFF CBC ####[place] [address] USAStomatocytesSFirstHealth Physician GroupComment on above: Performed By: #### CMP, PAB, MG, DIFF CBC ####[place] [address] USATear Drop CellsVidant Pungo Hospital Physician GroupComment on above:Performed By: #### CMP, PAB, MG, DIFF CBC ####[place] [address] USAWBC (Bld) [#/Vol]14.4 10*3/uLHigh3.8-11.6The Counts Include [address] [facility] Physician GroupComment on above:Performed By: #### CMP, PAB, MG, DIFF CBC ####[place] [address] USAWhite Blood Count12.6 [CFU]/mLHigh 3.8-11.6The Counts Include [address] [facility] Physician GroupComment on above:Performed By: #### CMP, PAB, MG, DIFF CBC ####[place] [address] USAMagnesiumon 39-27-1410Wxppkcekt [Mass/Vol]2.1 mg/dLNormal1.9-2.7The Counts Include [address] [facility] Physician GroupComment on above:Performed By: #### CMP, PAB, MG, DIFF CBC ####[address] [address] [place] Potassiumon 50-01-7242Udmiwytbq [Moles/Vol]3.5 mmol/LNormal3.5-5.1The Counts Include [address] [facility] Physician GroupComment on above:Result Comment: PERFORMED BY:[address] [place], [place] [id number] MEDICAL JACKELYN VÁZQUEZ M.D.Performed By: #### K ####[address] [address] USAPrealbuminon 32-67-5489Taqaxfmpsq [Mass/Vol]12.2 mg/dLLow17.0-34.0The Counts Include [address] [facility] Physician GroupComment on above: Result Comment: PERFORMED BY:[address] [place], [place] [phone] MEDICAL JACKELYN VÁZQUEZ M.D.Performed By: #### CMP, PAB, MG, DIFF CBC ####[address] [address] USAMagnesiumon 37-80-8877Nutefoozj [Mass/Vol]1.5 mg/dLLow1.9-2.7The Counts Include [address] [facility] Physician GroupComment on above: Result Comment: PERFORMED BY:[address] [place], [place] [phone] MEDICAL JACKELYN VÁZQUEZ M.D.Performed By: #### RENAL, MG ####[address] [address] USARenal Function Panelon 82-76-8148Mwnnemv [Mass/Vol] 3.0 g/dLLow3.5-5.7The Counts Include [address] [facility] Physician GroupComment on above:Performed By: #### RENAL, MG ####[address] [address] USAAnion gap [Moles/Vol]15.2 mmol/LHigh6.0-15.0The Counts Include [address] [facility] Physician GroupComment on above:Performed By: #### RENAL, MG ####[id number] [place] [address] USACalcium [Mass/Vol]8.7 mg/dL Normal8.6-10.3The Counts Include [address] [facility] Physician GroupComment on above:Performed By: #### RENAL, MG ####[address] [address] USAChloride [Moles/Vol]106 mmol/NFzgrem71-505Imn Counts Include [address] [facility] Physician [facility] Comment on above:Performed By: #### RENAL, MG ####[address] [address] USACO2 [Moles/Vol]26.2 mmol/LNormal 21.0-31.0The Counts Include [address] [facility] Physician GroupComment on above:Performed By: #### RENAL, MG ####[address] [address] [place] Creatinine [Mass/Vol]1.67 mg/dLHigh0.60-1.20The Counts Include [address] [facility] Physician GroupComment on above:Performed By: #### RENAL, MG ####[address] [address] USACreatinine Clr Calc Wxbnfaqd87.92NormalThe Counts Include [address] [facility] Physician [facility] HospitalComment on above:Performed By: #### RENAL, MG ####[address] [address] [place] GFR/1.73 sq M.predicted MDRD (S/P/Bld) [Vol rate/Area]31.949 mL/min/{1.73_m2} NormalThe Counts Include [address] [facility] Physician GroupComment on above:Performed By: #### RENAL, MG ####[address] [address] USAGlucose [Mass/Vol]59 mg/eMReh11-167Jmm Counts Include [address] [facility] Physician GroupComment on above:Result Comment: Random Glucose Reference Range is dependent on time and content of last meal. Glucose of more than 200 mg/dL in a nonstressed, ambulatory subject supports the diagnosis of Diabetes Mellitus. ADA recommended reference range Performed By: #### RENAL, MG ####[place] [phone] USAPhosphate [Mass/Vol]2.8 mg/dLNormal2.5-4.5The Counts Include [address] [facility] Physician GroupComment on above:Performed By: #### RENAL, MG ####[place] [id number] [place] Potassium [Moles/Vol]3.4 mmol/LLow3.5-5.1The Counts Include [address] [facility] Physician GroupComment on above:Performed By: #### RENAL, MG ####[place] [address] USASodium [Moles/Vol]144 mmol/FScppfx506-017Cxj Counts Include [address] [facility] Physician GroupComment on above:Performed By: #### RENAL, MG ####[place] [address] USAUrea nitrogen [Mass/Vol]34 mg/dLHigh7-25The Counts Include [address] [facility] Physician GroupComment on above:Performed By: #### RENAL, MG ####[place] [phone] USABasic Metabolic Panelon 98-39-3316Vbibj gap [Moles/Vol]Not performedNormal6.0-15.0The Counts Include [address] [facility] Physician GroupComment on above:Performed By: #### BMP ####[place] [address] USACalcium [Mass/Vol]8.6 mg/dLNormal8.6-10.3The Counts Include [address] [facility] Physician GroupComment on above:Performed By: #### BMP ####[place] [address] USAChloride [Moles/Vol] 106 mmol/WRiwjvr42-817Dap Counts Include [address] [facility] Physician GroupComment on above:Performed By: #### BMP ####[place] [id number] USACO2 [Moles/Vol]21.3 mmol/WHuvkdo33.0-31.0The Counts Include [address] [facility]ician Group Comment on above:Performed By: #### BMP ####[place] [address] USACreatinine [Mass/Vol]2.16 mg/dLHigh0.60-1.20 The Counts Include [address] [facility] Physician GroupComment on above:Performed By: #### BMP ####[address] [address] [place] Creatinine Clr Calc Atmhsbnv80.59NormalThe Counts Include [address] [facility] Physician GroupComment on above:Result Comment: PERFORMED BY:[address] ABHISHEKGaloRadhaHUI, [place] [phone] MEDICAL JACKELYN VÁZQUEZ M.D.Performed By: #### BMP ####[address] [address] USAGFR/1.73 sq M.predicted MDRD (S/P/Bld) [Vol rate/Area]23.462 mL/min/{1.73_m2}NormalThe Counts Include [address] [facility] Physician GroupComment on above:Performed By: #### BMP ####[address] [address] USAGlucose [Mass/Vol]79 mg/eZXllhvt22-215Vbo Counts Include [address] [facility] Physician GroupComment on above:Result Comment: Random Glucose Reference Range is dependent on time and content of last meal. Glucose of more than 200 mg/dL in a nonstressed, ambulatory subject supports the diagnosis of Diabetes Mellitus. ADA recommended reference rangePerformed By: #### BMP ####[address] [address] USAPotassiumNormal3.5-5.1The Counts Include [address] [facility] Physician GroupComment on above:Result Comment: Specimen hemolyzed, redraw requested Results called at 0552 on 11/13/24Performed By: #### BMP ####[address] [address] USASodium [Moles/Vol]140 mmol/MMqgggq400-282Wmu Counts Include [address] [facility] Physician GroupComment on above: Performed By: #### BMP ####[address] [address] USAUrea nitrogen [Mass/Vol]40 mg/dLHigh7-25The Counts Include [address] [facility] Physician GroupComment on above:Performed By: #### BMP ####[address] [address] USAECH echo limitedon 42-59-7233HLR echo limitedNormalThe Counts Include [address] [facility] Physician GroupMagnesiumon 09-30-7693Bbisgjsis [Mass/Vol]1.7 mg/dLLow1.9-2.7The Counts Include [address] [facility] Physician Group Comment on above:Result Comment: PERFORMED BY:[place] [address] [address] [address] SNYDERRadhaHUIBROOKS, [place] [phone] MEDICAL JACKELYN VÁZQUEZ M.D.Performed By: #### MG ####[address] [address] USARedraw Potassiumon 11-13-2024 Potassium [Moles/Vol]3.4 mmol/LLow3.5-5.1The Counts Include [address] [facility] Physician GroupComment on above:Result Comment: PERFORMED BY:[place] [address] DONNIE SNYDERRadhaHUI, [place] [phone] MEDICAL JACKELYN VÁZQUEZ M.D.Performed By: #### REDRAW K ####[address] [address] USABasic Metabolic Panelon 45-33-3403Gbeyz gap [Moles/Vol]15.0 mmol/LNormal6.0-15.0The Counts Include [address] [facility] Physician GroupComment on above:Performed By: #### BMP, HEPATIC ####[address] [address] USACalcium [Mass/Vol]8.9 mg/dLNormal8.6-10.3The Counts Include [address] [facility] Physician GroupComment on above:Performed By: #### BMP, HEPATIC ####[address] [address] [place] Chloride [Moles/Vol]104 mmol/NLpsdhu38-548Kyr Counts Include [address] [facility] Physician GroupComment on above:Performed By: #### BMP, HEPATIC ####[address] [address] USACO2 [Moles/Vol]24.4 mmol/MSxbekg07.0-31.0The Counts Include [address] [facility] Physician GroupComment on above:Performed By: #### BMP, HEPATIC ####[address] [address] [place] Creatinine [Mass/Vol]2.48 mg/dLHigh0.60-1.20The Counts Include [address] [facility] Physician GroupComment on above:Performed By: #### BMP, HEPATIC ####[address] [address] USACreatinine Clr Calc Bedyzuog99.55NormalThCaribou Memorial Hospital Physician GroupComment on above:Result Comment: PERFORMED BY:[address] [place], [place] [phone] MEDICAL DIRECTORCARLOS VÁZQUEZ M.D.Performed By: #### JOSE, HEPATIC ####[address] [address] [place] GFR/1.73 sq M.predicted MDRD (S/P/Bld) [Vol rate/Area]19.878 mL/min/{1.73_m2} NormalPhysicians Regional Medical Center [facility] Physician GroupComment on above:Performed By: #### BMP, HEPATIC ####[address] [address] USAGlucose [Mass/Vol]91 mg/tZWnbuug13-392Xsp Counts Include [facility] Physician GroupComment on above:Result Comment: Random Glucose Reference Range is dependent on time and content of last meal. Glucose of more than 200 mg/dL in a nonstressed, ambulatory subject supports the diagnosis of Diabetes Mellitus. ADA recommended reference rangePerformed By: #### BMP, HEPATIC ####[address] [address] USAPotassium [Moles/Vol]3.4 mmol/LLow 3.5-5.1The Counts Include [facility] Physician GroupComment on above:Performed By: #### BMP, HEPATIC ####[address] [address] USASodium [Moles/Vol]140 mmol/NGozmto801-100Scv Counts Include [facility] Physician GroupComment on above:Performed By: #### BMP, HEPATIC ####[address] [address] USAUrea nitrogen [Mass/Vol]47 mg/dLHigh7-25The Counts Include [facility] Physician GroupComment on above:Performed By: #### BMP, HEPATIC ####[address] [address] USADiff and CBCon 39-24-2673Awukvzydttws Ql (Bld)ModerateNormLee Health Coconut Point Physician GroupComment on above:Performed By: #### DIFF CBC ####[place] [phone] USABand form neutrophils/100 WBC (Bld)9 %High0-5The Counts Include [facility] Physician GroupComment on above:Performed By: #### DIFF CBC ####[address] Erythrocyte distribution width (RBC) [Ratio]16.0 %High11.9-15.3The Counts Include [facility] Physician GroupComment on above:Performed By: #### DIFF CBC ####[place] [phone] USAGiant Platelet Tally2 /100{WBC}NormalThe Counts Include [facility] Physician GroupComment on above:Performed By: #### DIFF CBC ####[address] [address] USAHematocrit (Bld) [Volume fraction]26.0 %Low34.0-46.4The Counts Include [facility] Physician GroupComment on above:Performed By: #### DIFF CBC ####[address] [address] USAHemoglobin (Bld) [Mass/Vol]8.7 g/dLLow 11.8-15.4The Counts Include [facility] Physician GroupComment on above:Performed By: #### DIFF CBC ####[address] [address] [place] HypochromasiaModerateNormLee Health Coconut Point Physician GroupComment on above: Performed By: #### DIFF CBC ####[place] [phone] USALymphocytes/100 WBC (Bld)5 %Wqp73-09Ttg Counts Include [facility] Physician GroupComment on above:Performed By: #### DIFF CBC ####[address]H (RBC) [Entitic mass]28.0 pmUiypno44.7-34.3The Counts Include [facility] Physician GroupComment on above: Performed By: #### DIFF CBC ####[address]MCV (RBC) [Entitic vol]84.1 gLGscmys51-893Ewd Counts Include [facility] Physician GroupComment on above:Performed By: #### DIFF CBC ####[place] [address] USAMean Corpuscular HGB Conc33.4 g/xQZgdhno22.0-35.0The Counts Include [facility] Physician GroupComment on above:Performed By: #### DIFF CBC ####[place] [address] USAMonocytes/100 WBC (Bld)8 %Normal2-11The Counts Include [facility] Physician GroupComment on above:Performed By: #### DIFF CBC ####[address] Myelocytes2 %High0-0The Counts Include [facility] Physician GroupComment on above:Performed By: #### DIFF CBC ####[place] [address] USANucleated Red Blood Cell4 /100{WBC}High0-0The Counts Include [facility] Physician Group Comment on above:Performed By: #### DIFF CBC ####[place] [phone] USAPlatelet EstimateNormalNormalNormalThe Counts Include [facility] Physician GroupComment on above:Performed By: #### DIFF CBC ####[address] Platelet mean volume (Bld) [Entitic vol]8.3 fLNormal6.3-10.7The Counts Include [facility] Physician GroupComment on above:Performed By: #### DIFF CBC ####[facility] [place] [address] USAPlatelet Morphology NormalNormalNoFormerly [facility] Physician GroupComment on above:Result Comment: PERFORMED BY:[address] [place], [place] [phone] MEDICAL JACKELYN VÁZQUEZ M.D.Performed By: #### DIFF CBC ####[address] [address] USAPlatelets (Bld) [#/Vol]244 10*3/oOIgxpam241-999Sef Counts Include [facility] Physician GroupComment on above:Performed By: #### DIFF CBC ####[address] [address] USAPoikilocytosisModerateNoFormerly [facility] Physician GroupComment on above:Performed By: #### DIFF CBC ####[address] [address] [place] PolychromasiaSlightNoFormerly [facility] Physician GroupComment on above:Performed By: #### DIFF CBC ####[address] [address] USAPromyelocytes1 %High0-0The Counts Include [facility] Physician GroupComment on above:Performed By: #### DIFF CBC ####[address] [address] USARBC (Bld) [#/Vol]3.09 10*6/uLLow3.60-5.00The Counts Include [facility] Physician GroupComment on above:Performed By: #### DIFF CBC ####[address] [address] [place] Segmented neutrophils/100 WBC (Bld)76 %Wxam82-43Oeh Counts Include [facility] Physician Group Comment on above:Performed By: #### DIFF CBC ####[address] [address] USAStomatocytesModMount Sinai Medical Center & [facility] Physician GroupComment on above:Performed By: #### DIFF CBC ####[address] [address] USATarget CellsSlightNormalThe Counts Include [facility] Physician GroupComment on above:Performed By: #### DIFF CBC ####[address] [address] USAWBC (Bld) [#/Vol]17.6 10*3/uLHigh3.8-11.6The Counts Include [facility] Physician Group Comment on above:Performed By: #### DIFF CBC ####[place] [address] USAWhite Blood Count17.6 [CFU]/mLHigh 3.8-11.6The Counts Include [facility] Physician GroupComment on above:Performed By: #### DIFF CBC ####[place] [phone] [facility] Hepatic Panelon 50-08-0444Nqjjpvl [Mass/Vol]3.1 g/dLLow3.5-5.7The Counts Include [facility] Physician GroupComment on above:Performed By: #### BMP, HEPATIC ####[place] [address] USAAlbumin/Globulin [Mass ratio]1.6 {ratio}NormalThe Counts Include [address] [facility] Physician [facility] HospitalComment on above: Performed By: #### BMP, HEPATIC ####[place] [phone] USAALP [Catalytic activity/Vol]106 U/TWryk45-137Lcs Counts Include [facility] Physician GroupComment on above:Performed By: #### BMP, HEPATIC ####[address] [address] USAALT [Catalytic activity/Vol]114 U/LHigh7-52The Counts Include [facility] Physician GroupComment on above:Performed By: #### BMP, HEPATIC ####[place] [phone] USAAST [Catalytic activity/Vol]25 U/GAlstco92-47 The Counts Include [facility] Physician GroupComment on above:Performed By: #### BMP, HEPATIC ####[place] [address] [place] Bilirubin [Mass/Vol]1.2 mg/dLHigh0.3-1.0The Counts Include [facility] Physician GroupComment on above:Performed By: #### BMP, HEPATIC ####[address] [address] USABilirubin,Indirect0.6 mg/dLNormLee Health Coconut Point Physician GroupComment on above:Performed By: #### BMP, HEPATIC ####[place] [phone] USABilirubin.indirect [Mass/Vol]0.60 mg/dLHigh0.03-0.18The Counts Include [facility] Physician GroupComment on above: Performed By: #### BMP, HEPATIC ####[address] [address] USAGlobulin (S) [Mass/Vol]2.0 g/dLNoFormerly [facility] Physician GroupComment on above:Performed By: #### BMP, HEPATIC ####[place] [phone] USAProtein [Mass/Vol]5.1 g/dLLow6.4-8.9The Counts Include [facility] Physician GroupComment on above:Performed By: #### BMP, HEPATIC ####[address] [address] USABasic Metabolic Panelon 04-64-9450Rxblx gap [Moles/Vol]13.2 mmol/L Normal6.0-15.0The Counts Include [facility] Physician GroupComment on above:Performed By: #### BMP, LDH ####[place] [phone] USACalcium [Mass/Vol]8.7 mg/dLNormal8.6-10.3The Counts Include [facility] Physician GroupComment on above:Performed By: #### BMP, LDH ####[place] [address] USAChloride [Moles/Vol]100 mmol/NHfgzke98-798Fpa Counts Include [facility] Physician GroupComment on above:Performed By: #### BMP, LDH ####[place] [phone] USACO2 [Moles/Vol]25.4 mmol/MKhhchb69.0-31.0The Counts Include [facility] Physician GroupComment on above:Performed By: #### BMP, LDH ####[address] [address] USACreatinine [Mass/Vol]2.59 mg/dLSignificant change down0.60-1.20The Counts Include [facility] Physician [facility] HospitalComment on above:Performed By: #### BMP, LDH ####[address] [address] USACreatinine Clr Calc Mgoreazb02.82NormalThCaribou Memorial Hospital Physician GroupComment on above:Result Comment: PERFORMED BY:[address] [place]HEKGaloRadhaHUI, [place] [phone] MEDICAL DIRECTORCARLOS VÁZQUEZ M.D.Performed By: #### BMP, LDH ####[address] [address] USAGFR/1.73 sq M.predicted MDRD (S/P/Bld) [Vol rate/Area]18.870 mL/min/{1.73_m2}NormalThe Counts Include [facility] Physician [facility] HospitalComment on above:Performed By: #### BMP, LDH ####[address] [address] USAGlucose [Mass/Vol]88 mg/jKCvhxwh85-463Olj Counts Include [facility] Physician [facility] HospitalComment on above:Result Comment: Random Glucose Reference Range is dependent on time and content of last meal. Glucose of more than 200 mg/dL in a nonstressed, ambulatory subject supports the diagnosis of Diabetes Mellitus. ADA recommended reference rangePerformed By: #### BMP, LDH ####[address] [address] USAPotassium [Moles/Vol] 3.6 mmol/LNormal3.5-5.1The Counts Include [address] [facility] Physician [facility] HospitalComment on above:Performed By: #### BMP, LDH ####[address] [address] USASodium [Moles/Vol]135 mmol/XRbv750-962Yvu Counts Include [facility] Physician Group Comment on above:Performed By: #### BMP, LDH ####[address] [address] USAUrea nitrogen [Mass/Vol]44 mg/dLHigh 7-25The Counts Include [facility] Physician GroupComment on above:Performed By: #### BMP, LDH ####[address] [address] USABlood Cultureon 81-79-0620Eawbfest identified Cx Nom (Bld)NO GROWTH 5 DAYS PERFORMED BY: [facility] [address] [place] [id number] PATHOLOGIST GLASS BREAKER CARLOS VÁZQUEZ M.D.NormalPhysicians Regional Medical Center - [facility] Physician GroupComment on above: Performed By: #### CUBLD ####[place] [phone] USAClostridium Difficileon 03-78-6131Mwdiukjqdqp DifficileNegativeNormalNegativeThe Counts Include [facility] Physician [facility] HospitalComment on above: Order Comment: > or = to 3 loose/watery stools in the last 24 HRS? Y Is patient on promotility agents or tube feeding? NResult Comment: Testing performed by RT- PCRPERFORMED BY:[address]PL[address] [place], [place] [phone] MEDICAL DIRECTORCARLOS VÁZQUEZ M.D.Performed By: #### OB(GUAIAC), CDT ####[address] [address] USADiff and CBCon 82-83-3049BdsmcprvaxzeAjsnmnYwsmbbEms Firelands Physician GroupComment on above:Performed By: #### DIFF CBC ####[address] [address] [place] Anisocytosis Ql (Bld)ModerateNormHolzer Health Systeme Counts Include [facility] Physician GroupComment on above:Performed By: #### DIFF CBC ####[address] [address] USABand form neutrophils/100 WBC (Bld)5 %Normal0-5The Counts Include [facility] Physician GroupComment on above:Performed By: #### DIFF CBC ####[place] [address] [place] Basophils/100 WBC (Bld)2 %Normal0-2The Counts Include [facility] Physician GroupComment on above:Performed By: #### DIFF CBC ####[place] [phone] USAEosinophils/100 WBC (Bld)2 %Normal1-3The Counts Include [facility] Physician GroupComment on above:Performed By: #### DIFF CBC ####[place] [address] USAErythrocyte distribution width (RBC) [Ratio]15.8 %High11.9-15.3The Counts Include [address] [facility] Physician Group Comment on above:Performed By: #### DIFF CBC ####[place] [address] USAGiant Platelet Tally1 /100{WBC}Normal The Counts Include [facility] Physician GroupComment on above:Performed By: #### DIFF CBC ####[address] Hematocrit (Bld) [Volume fraction]19.6 %Off scale low34.0-46.4The Counts Include [address] [facility] Physician GroupComment on above:Result Comment: Critical value result called at 0848 on 11/11/24Performed By: #### DIFF CBC ####[place] [address] USAHemoglobin (Bld) [Mass/Vol]6.5 g/dLLow 11.8-15.4The Counts Include [facility] Physician GroupComment on above:Performed By: #### DIFF CBC ####[place] [phone] [place] HypochromasiaSlightNormalThe Counts Include [facility] Physician GroupComment on above:Performed By: #### DIFF CBC ####[place] [phone] USALymphocytes/100 WBC (Bld)4 %Txe67-03Dzv Counts Include [address] [facility] Physician [facility] Comment on above:Performed By: #### DIFF CBC ####[place] [phone] USAMCH (RBC) [Entitic mass]27.9 pgNormal 24.7-34.3The Counts Include [address] [facility] Physician GroupComment on above:Performed By: #### DIFF CBC ####[place] [address] USAMCV (RBC) [Entitic vol]83.7 vVOujtup76-601Ubq Counts Include [address] [facility] Physician [facility] HospitalComment on above:Performed By: #### DIFF CBC ####[place] [address] USAMean Corpuscular HGB Conc33.3 g/nOGfdccz47.0-35.0The Counts Include [facility] Physician GroupComment on above:Performed By: #### DIFF CBC ####[place] [address] [place] Metamyelocytes2 %High0-0The Counts Include [address] [facility] Physician GroupComment on above:Performed By: #### DIFF CBC ####[place] [address] USAMonocytes/100 WBC (Bld)11 %Normal2-11The Counts Include [address] [facility] Physician Group Comment on above:Performed By: #### DIFF CBC ####[place] [address] USANucleated Red Blood Cell2 /100{WBC} High0-0The Counts Include [facility] Physician GroupComment on above:Performed By: #### DIFF CBC ####[place] [phone] [place] OvalocytesSlightNoFormerly [facility] Physician GroupComment on above:Performed By: #### DIFF CBC ####[place] [address] USAPlasma Cells1 %High0-0The Counts Include [facility] Physician GroupComment on above: Performed By: #### DIFF CBC ####[place] [phone] USAPlatelet EstimateNormalNormalNoFormerly [facility] Physician [facility] HospitalComment on above:Performed By: #### DIFF CBC ####[facility] [address] [place] [address] USAPlatelet mean volume (Bld) [Entitic vol]8.3 fLNormal6.3-10.7The Counts Include [address] [facility] Physician GroupComment on above:Performed By: #### DIFF CBC ####[address] [address] USAPlatelet MorphologyNormalNormalNormLee Health [facility] [place] Physician GroupComment on above:Result Comment: PERFORMED BY:[address] [place], [place] [phone] MEDICAL DIRECTORCARLOS VÁZQUEZ M.D.Performed By: #### DIFF CBC ####[address] [address] USAPlatelets (Bld) [#/Vol]246 10*3/vAWaqzlk934-157Iol Counts Include [facility] Physician GroupComment on above:Performed By: #### DIFF CBC ####[address] [address] USAPoikilocytosisModerateNormLee Health [facility] [place] Physician GroupComment on above:Performed By: #### DIFF CBC ####[address] [address] USAPolychromasiaSlightNoFormerly [facility] Physician GroupComment on above:Performed By: #### DIFF CBC ####[address] [address] USARBC (Bld) [#/Vol]2.34 10*6/uLLow 3.60-5.00The Counts Include [facility] Physician GroupComment on above:Performed By: #### DIFF CBC ####[address] [address] [place] Reactive Lymphocytes2 %Normal0-12The Counts Include [address] [facility] Physician GroupComment on above: Performed By: #### DIFF CBC ####[address] [address] USASegmented neutrophils/100 WBC (Bld)72 %Skqs46-84Eep Counts Include [facility] Physician GroupComment on above:Performed By: #### DIFF CBC ####[address] [address] [place] StomatocytesModerateNormLee Health [facility] Physician GroupComment on above: Performed By: #### DIFF CBC ####[address] [address] USATarget CellsSlightNoFormerly [facility] Physician GroupComment on above:Performed By: #### DIFF CBC ####[place] [phone] USAWBC (Bld) [#/Vol]18.5 10*3/uLHigh 3.8-11.6The Counts Include [address] [facility] Physician GroupComment on above:Performed By: #### DIFF CBC ####[place] [address] [facility] White Blood Count18.5 [CFU]/mLHigh3.8-11.6The Counts Include [address] [facility] Physician GroupComment on above:Performed By: #### DIFF CBC ####[place] [address] [facility] CENTERHaptoglobinon 78-01-4292Jgwpnavviqq831 mg/dL Xftiza16-568Xra Counts Include [facility] Physician GroupComment on above:Order Comment: TO BE DRAWN WITH REPEAT H H PER JULITO per rn julito will pull from HD cath with HH once pt has units of blood and is transfusedResult Comment: PERFORMED BY:[address] [place], [place] [phone] MEDICAL DIRECTORCARLOS VÁZQUEZ M.D.Performed By: #### HAPT ####[place] [address] USAHemogram CBC Without Diffon 34-95-8635Ehjwrgryvmf distribution width (RBC) [Ratio]15.7 %High11.9-15.3 The Counts Include [address] [facility] Physician GroupComment on above:Performed By: #### CBCNO ####[address] Hematocrit (Bld) [Volume fraction]26.0 %Low34.0-46.4The Counts Include [address] [facility] Physician GroupComment on above:Performed By: #### CBCNO ####[place] [phone] USAHemoglobin (Bld) [Mass/Vol]8.8 g/dLLow 11.8-15.4The Counts Include [address] [facility] Physician GroupComment on above:Performed By: #### CBCNO ####[place] [address] USAMCH (RBC) [Entitic mass]28.3 kkKzoilr93.7-34.3The Counts Include [address] [facility] Physician GroupComment on above:Performed By: #### CBCNO ####[place] [phone] USAMCV (RBC) [Entitic vol]83.7 dCAjbcxr24-000Zel Counts Include [address] [facility] Physician GroupComment on above:Performed By: #### CBCNO ####[place] [address] USAMean Corpuscular HGB Conc33.8 g/yQGavnem55.0-35.0The Counts Include [address] [facility] Physician GroupComment on above: Performed By: #### CBCNO ####[place] [address] USAPlatelet mean volume (Bld) [Entitic vol]8.1 fLNormal 6.3-10.7The Counts Include [address] [facility] Physician GroupComment on above:Result Comment: PERFORMED BY:[address] [place], [place] [phone] MEDICAL DIRECTORCARLOS VÁZQUEZ M.D.Performed By: #### CBCNO ####[place] [phone] [place] Platelets (Bld) [#/Vol]243 10*3/wWFdbxxp607-103Ncc Counts Include [address] [facility] Physician Group Comment on above:Performed By: #### CBCNO ####[place] [address] USARBC (Bld) [#/Vol]3.11 10*6/uLLow3.60-5.00The Counts Include [address] [facility] Physician GroupComment on above:Performed By: #### CBCNO ####[address] [address] USAWhite Blood Count 21.3 [CFU]/mLHigh3.8-11.6The Counts Include [address] [facility] Physician [facility] HospitalComment on above:Performed By: #### CBCNO ####[address] [address] USALDH Lactate Dehydrogenaseon 25-87-0991AWL Lactate Nnlullqxjyiyg502 U/L Zazr225-374Vfe Counts Include [address] [facility] Physician [facility] HospitalComment on above:Result Comment: PERFORMED BY:[address] [place], [place] [phone] MEDICAL JACKELYN VÁZQUEZ M.D.Performed By: #### BMP, LDH ####[place] [phone] USALeukoReduced RBCon 44-15-1160AuupzDxbeimy RBCTRANSFUSED 11/11/24 1413 NormalThe Counts Include [address] [facility] Physician [facility] Centercan and CBCon 93-34-4439Ehenacbhxicy Ql (Bld)SlightNormalThe Counts Include [address] [facility] Physician [facility] HospitalComment on above:Performed By: #### SCAN CBC ####[address] [address] USABasophils (Bld) [#/Vol]0.0 10*3/uLNormal0.0-0.2The Counts Include [address] [facility] Physician [facility] HospitalComment on above:Performed By: #### SCAN CBC ####[place] [address] USABasophils/100 WBC (Bld)0.1 %Normal. The Counts Include [facility] Physician GroupComment on above:Performed By: #### SCAN CBC ####[address] [address] [place] Eosinophils (Bld) [#/Vol]0.3 10*3/uLNormal0.0-0.45The Counts Include [address] [facility] Physician [facility] Comment on above:Performed By: #### SCAN CBC ####[place] [address] USAEosinophils/100 WBC (Bld)1.5 %Normal. The Counts Include [facility] Physician GroupComment on above:Performed By: #### SCAN CBC ####[place] [phone] [facility] Erythrocyte distribution width (RBC) [Ratio]16.2 %High11.9-15.3The Counts Include [address] [facility] Physician GroupComment on above:Performed By: #### SCAN CBC ####[place] [address] USAHematocrit (Bld) [Volume fraction]19.6 %Off scale low34.0-46.4The Counts Include [address] [facility] Physician Group Comment on above:Result Comment: Critical value result called at 0602 on 11/11/24 jPerformed By: #### SCAN CBC ####[place] [phone] USAHemoglobin (Bld) [Mass/Vol]6.4 g/dLLow 11.8-15.4The Counts Include [address] [facility] Physician GroupComment on above:Performed By: #### SCAN CBC ####[place] [address] [place] HypochromasiaSlightNormalThe Counts Include [address] [facility] Physician GroupComment on above:Performed By: #### SCAN CBC ####[place] [phone] USALymphocytes (Bld) [#/Vol]1.4 10*3/uLNormal1.00-4.8The Counts Include [address] [facility] Physician GroupComment on above:Performed By: #### SCAN CBC ####[place] [address] USALymphocytes/100 WBC (Bld)7.5 %Normal.The Counts Include [address] [facility] Physician GroupComment on above:Performed By: #### SCAN CBC ####[place] [id number] USAMCH (RBC) [Entitic mass]27.5 mzJhorhs17.7-34.3The Counts Include [facility] Physician GroupComment on above:Performed By: #### SCAN CBC ####[place] [id number] USAMCV (RBC) [Entitic vol]84.1 fLNormal 80-100The Counts Include [facility] Physician GroupComment on above:Performed By: #### SCAN CBC ####[place] [address] USAMean Corpuscular HGB Conc32.7 g/qDYmefhp58.0-35.0The Counts Include [facility] Physician GroupComment on above:Performed By: #### SCAN CBC ####[place] [address] USAMonocytes (Bld) [#/Vol]1.5 10*3/uLHigh0.0-0.8 The Counts Include [facility] Physician GroupComment on above:Performed By: #### SCAN CBC ####[place] [address] [place] Monocytes/100 WBC (Bld)8.0 %Normal.The Counts Include [facility] Physician GroupComment on above:Performed By: #### SCAN CBC ####[place] [address] USANeutrophils (Bld) [#/Vol]15.2 10*3/uLHigh1.8-7.7The Counts Include [facility] Physician GroupComment on above:Performed By: #### SCAN CBC ####[place] [address] [place] Neutrophils/100 WBC (Bld)82.9 %Normal.The Counts Include [facility] Physician GroupComment on above:Performed By: #### SCAN CBC ####[place] [address] USANRBC%0.1 /100{WBC}Normal0-0.5The Counts Include [facility] Physician GroupComment on above:Performed By: #### SCAN CBC ####[place] [address] USAOvalocytesModerateNormLee Health Coconut Point Physician GroupComment on above:Performed By: #### SCAN CBC ####[place] [address] [place] Platelet EstimateNormalNormalNormHolzer Health Systeme Counts Include [facility] Physician GroupComment on above:Performed By: #### SCAN CBC ####[facility] [place] [address] USAPlatelet mean volume (Bld) [Entitic vol]8.5 fLNormal 6.3-10.7The Counts Include [facility] Physician GroupComment on above:Performed By: #### SCAN CBC ####[address] [address] [place] Platelet MorphologyNormalNormalNoFormerly [facility] Physician GroupComment on above:Result Comment: PERFORMED BY:[address] [place], [place] [phone] MEDICAL DIRECTORCARLOS VÁZQUEZ M.D.Performed By: #### SCAN CBC ####[address] [address] USAPlatelets (Bld) [#/Vol]231 10*3/tVTuovqj819-579Vef Counts Include [facility] Physician GroupComment on above:Performed By: #### SCAN CBC ####[address] [address] [facility] PoikilocytosisModerateNoFormerly [facility] Physician GroupComment on above: Performed By: #### SCAN CBC ####[address] [address] USAPolychromasiaSlightMorton Plant North Bay Hospital Physician GroupComment on above:Performed By: #### SCAN CBC ####[address] [address] USARBC (Bld) [#/Vol]2.33 10*6/uLLow 3.60-5.00[facility] Physician GroupComment on above:Performed By: #### SCAN CBC ####[address] [address] [facility] StomatocytesModerateNoFormerly [facility] Physician GroupComment on above: Performed By: #### SCAN CBC ####[address] [address] USATarget CellsSlightNoFormerly [facility] Physician GroupComment on above:Performed By: #### SCAN CBC ####[place] [address] [place] [address] USAWBC (Bld) [#/Vol]18.4 10*3/uLHigh 3.8-11.6The Counts Include [facility] Physician GroupComment on above:Performed By: #### SCAN CBC ####[place] [address] [place] [address] [facility] White Blood Count18.4 [CFU]/mLHigh3.8-11.6The Counts Include [facility] Physician GroupComment on above:Performed By: #### SCAN CBC ####[place] [address] [place] [address] USAStool Occult Blood (Guaiac)on 06-74-8925Mblxy Occult Blood (Guaiac)NormalThe Counts Include [facility] Physician GroupComment on above: Performed By: #### OB(GUAIAC), CDT ####[address] [address] USAType and Screenon 28-79-9536QKP and Rh group Nom (Bld)Blood group A Rh(D) positiveNoFormerly [facility] Physician GroupComment on above:Order Comment: Transfuse now? Y Number of units to transfuse now? 2Result Comment: PERFORMED BY:[place] [address] [address] [place], [place] [phone] MEDICAL JACKELYN VÁZQUEZ M.D. Vancomycin,Randomon 27-67-4177Ssxhwysuar,Bhonyn03.9High5.0-20.0The Counts Include [facility] Physician GroupComment on above:Order Comment: Date of last dose?: 20241110 Time of last dose?: 2199Result Comment: Last dose: -PERFORMED BY:[place] [address] [address] [place], [place] [phone] MEDICAL JACKELYN VÁZQUEZ M.D.Performed By: #### VANCR ####[address] [address] USAAerobic Cultureon 11-10-2024 Aerobic CultureNoFormerly [facility] Physician GroupComment on above:Performed By: #### AERC, GS ####[facility] [address] [place] [address] USAArterial Blood Gason 65-26-3208NIH Base Excess0.8 mmol/LNormal-3.0-3.0 The Counts Include [facility] Physician GroupComment on above:Performed By: #### ABG ####Point of Care testing,ABG Frac Inspired O230 %NormalThe Counts Include [facility] Physician Group Comment on above:Performed By: #### ABG ####Point of Care testing,ABG Oxygen Content5.8 mmol/LLow6.6-9.7The Counts Include [facility] Physician GroupComment on above: Performed By: #### ABG ####Point of Care testing,ABG Oxygen Jpbbmbvnlg48.9 % Ciztkt03.0-100.0The Counts Include [facility] Physician GroupComment on above:Performed By: #### ABG ####Point of Care testing,ABG XDT061.1 mm[Hg]Xlwtey92.0-45.0The Counts Include [facility] Physician GroupComment on above:Performed By: #### ABG ####Point of Care testing,ABG DGKD1CmhuszVex Counts Include [facility] Physician GroupComment on above:Performed By: #### ABG ####Point of Care testing,ABG PH7.16Bpghmt4.35-7.45The Counts Include [facility] Physician GroupComment on above:Performed By: #### ABG ####Point of Care testing,ABG PO281.4 mm[Hg]Rdeyya92.0-100.0The Counts Include [facility] Physician GroupComment on above:Performed By: #### ABG ####Point of Care testing,ABG TV450 mLNormalThe Counts Include [facility] Physician GroupComment on above:Performed By: #### ABG ####Point of Care testing,CO2 [Moles/Vol]25.9 mmol/CDszycu57.0-27.0The Counts Include [facility] Physician GroupComment on above:Performed By: #### ABG ####Point of Care testing,HCO3 (Bld) [Moles/Vol]24.8 mmol/OHgbbre40.0-29.0The Counts Include [facility] Physician GroupComment on above:Performed By: #### ABG ####Point of Care testing,Respiratory Critical NormalThe Counts Include [facility] Physician GroupComment on above:Result Comment: Critical Value called on: 11/10/2024 at 05:26PERFORMED BY:[facility] [place], [place] [phone] MEDICAL DIRECTORCARLOS VÁZQUEZ M.D.Performed By: #### ABG ####Point of Care testing, VBG Draw SiteArtlineNormLee Health [facility]oconut Point Physician GroupComment on above: Performed By: #### ABG ####Point of Care testing,Bacterial susceptibility panel (Isol)on 07-57-0483rgcvKWJXeilh [Susc]<=1SusceptibleSusceptible <=2 , Intermediate >2 , Resistant >7ClevelOhio State University Wexner Medical Center on above:Order Comment: Ordering Facility: [facility] Address: [address] [place], [place] [address]Performed By: #### 97187-5, 75403-8 #### [facility] CLIA [id number] [address] [place] [address] [place] OF AMERICAMinocycline [Susc]<=1 SusceptibleSusceptible <=4 , Intermediate >4 , Resistant >8ClevelOhio State University Wexner Medical Center on above:Order Comment: Ordering Facility: [facility] Address: [address] [place], [place] [address]Performed By: #### 99526-2, 48556-4 #### [facility] CLIA [id number] [address] [place] [address] [place] OF AMERICABacterial susceptibility panel STEPHANIE (Isol)on 82-80-2657Qmhgqpqtdtagu identified Cx Nom (Unsp spec)[id number] AbnormalC[facility] Clinic [facility] Hospital on above:Order Comment: Specimen Type: MICROBIAL ISOLATE Ordering Facility: [facility] Address: [address] [place], [place] [address]Result Comment: Stenotrophomonas maltophilia Identification performed by client.Performed By: #### 91996-1, 77322-5 #### [facility] CLIA [id number] [address] [address] UNITED [facility] HOSPITALBasic Metabolic Panelon 82-54-0568Revlz gap [Moles/Vol]13.3 mmol/LNormal6.0-15.0The Counts Include [facility] Physician GroupComment on above:Performed By: #### BMP ####[address] [address] USACalcium [Mass/Vol]8.8 mg/dLNormal 8.6-10.3The Counts Include [facility] Physician GroupComment on above:Performed By: #### BMP ####[address] [address] [place] Chloride [Moles/Vol]100 mmol/OMtmmks81-263Ngw Counts Include [facility] Physician GroupComment on above:Performed By: #### BMP ####[address] [address] USACO2 [Moles/Vol]25.3 mmol/IMuowhd98.0-31.0The Counts Include [address] [facility] Physician GroupComment on above:Performed By: #### BMP ####[address] [address] USACreatinine [Mass/Vol] 2.05 mg/dLSignificant change down0.60-1.20The Counts Include [address] [facility] Physician GroupComment on above:Performed By: #### BMP ####[address] [address] USACreatinine Clr Calc Vjjwaqey18.48NormalThe Counts Include [address] [facility] Physician GroupComment on above:Result Comment: PERFORMED BY:[address] [place], [place] [phone] MEDICAL JACKELYN VÁZQUEZ M.D.Performed By: #### BMP ####[address] [address] USAGFR/1.73 sq M.predicted MDRD (S/P/Bld) [Vol rate/Area]24.981 mL/min/{1.73_m2}NormalThe Counts Include [address] [facility] Physician GroupComment on above:Performed By: #### BMP ####[place] [address] USAGlucose [Mass/Vol]109 mg/iZDhcf18-127 The Counts Include [address] [facility] Physician GroupComment on above:Result Comment: Random Glucose Reference Range is dependent on time and content of last meal. Glucose of more than 200 mg/dL in a nonstressed, ambulatory subject supports the diagnosis of Diabetes Mellitus. ADA recommended reference rangePerformed By: #### BMP ####[address] Potassium [Moles/Vol]3.6 mmol/LNormal3.5-5.1The Counts Include [address] [facility] Physician GroupComment on above:Performed By: #### BMP ####[place] [address] USASodium [Moles/Vol]135 mmol/LSignificant change down 136-145The Counts Include [address] [facility] Physician GroupComment on above:Performed By: #### BMP ####[place] [address] USAUrea nitrogen [Mass/Vol]29 mg/dLSignificant change down7-25The Counts Include [address] [facility] Physician GroupComment on above:Performed By: #### BMP ####[place] [address] USADiff and CBCon 73-86-2431Ozlswqsrgagn Ql (Bld)SlightNormalThe Counts Include [address] [facility] Physician GroupComment on above:Performed By: #### DIFF CBC ####[place] [address] USABand form neutrophils/100 WBC (Bld)12 %High0-5The Counts Include [address] [facility] Physician GroupComment on above:Performed By: #### DIFF CBC ####[place] [address] USAEosinophils/100 WBC (Bld)1 %Normal1-3 The Counts Include [address] [facility] Physician GroupComment on above:Performed By: #### DIFF CBC ####[place] [address] [place] Erythrocyte distribution width (RBC) [Ratio]16.3 %High11.9-15.3The Counts Include [address] [facility] Physician GroupComment on above:Performed By: #### DIFF CBC ####[address] [address] USAHematocrit (Bld) [Volume fraction]25.8 %Low34.0-46.4The Counts Include [address] [facility] Physician GroupComment on above:Performed By: #### DIFF CBC ####[place] [address] USAHemoglobin (Bld) [Mass/Vol]8.6 g/dLLow11.8-15.4The Counts Include [address] [facility] Physician GroupComment on above:Performed By: #### DIFF CBC ####[place] [address] [place] HypochromasiaModerateMorton Plant North Bay Hospital Physician GroupComment on above: Performed By: #### DIFF CBC ####[place] [address] USALarge PlateletsSlightNoFormerly [facility] Physician GroupComment on above:Result Comment: PERFORMED BY:[address] [place], [place] [phone] MEDICAL DIRECTORCARLOS VÁZQUEZ M.D.Performed By: #### DIFF CBC ####[place] [address] USALymphocytes/100 WBC (Bld)3 % Qwb43-20Ydd Counts Include [address] [facility] Physician GroupComment on above:Performed By: #### DIFF CBC ####[place] [address] USAMCH (RBC) [Entitic mass]27.6 niOrhfrr49.7-34.3The Counts Include [address] [facility] Physician GroupComment on above:Performed By: #### DIFF CBC ####[place] [address] USAMCV (RBC) [Entitic vol]83.0 vKKlhtzt57-618Uaw Counts Include [address] [facility] Physician GroupComment on above:Performed By: #### DIFF CBC ####[address] [place] [address] USAMean Corpuscular HGB Conc33.3 g/bGJfkars90.0-35.0The Counts Include [address] [facility] Physician GroupComment on above:Performed By: #### DIFF CBC ####[address] [address] USAMetamyelocytes1 %High0-0The Counts Include [address] [facility] Physician GroupComment on above:Performed By: #### DIFF CBC ####[address] [address] USAMonocytes/100 WBC (Bld)8 %Normal2-11The Counts Include [address] [facility] Physician GroupComment on above:Performed By: #### DIFF CBC ####[address] [address] USAPlasma Cells1 %High0-0The Counts Include [address] [facility] Physician GroupComment on above: Performed By: #### DIFF CBC ####[address] [address] USAPlatelet EstimateNormalNormalNormLee Health [facility]ocon[facility] Point Physician GroupComment on above:Performed By: #### DIFF CBC ####[address] [address] USAPlatelet mean volume (Bld) [Entitic vol]8.2 fLNormal6.3-10.7The Counts Include [address] [facility] Physician GroupComment on above:Result Comment: PERFORMED BY:[address] [place], [place] [phone] MEDICAL JACKELYN VÁZQUEZ M.D.Performed By: #### DIFF CBC ####[address] [address] USAPlatelets (Bld) [#/Vol]246 10*3/nMXcstxi755-120Ugu Counts Include [address] [facility] Physician GroupComment on above:Performed By: #### DIFF CBC ####[address] [address] [place] PoikilocytosisSlightNormLee Health Coconut Point Physician GroupComment on above: Performed By: #### DIFF CBC ####[address] [address] [facility] CENTERPolychromasiaSFirstHealth Physician GroupComment on above:Performed By: #### DIFF CBC ####[address] [address] USAPromyelocytes1 %High0-0The Counts Include [address] [facility] Physician GroupComment on above:Performed By: #### DIFF CBC ####[address] [address] USARBC (Bld) [#/Vol]3.11 10*6/uLLow3.60-5.00The Counts Include [address] [facility] Physician GroupComment on above:Performed By: #### DIFF CBC ####[address] [address] USARouleauxSFirstHealth Physician GroupComment on above: Performed By: #### DIFF CBC ####[address] [address] USASegmented neutrophils/100 WBC (Bld)74 %Cgra34-29Hcx Counts Include [address] [facility] Physician GroupComment on above:Performed By: #### DIFF CBC ####[address] [address] [facility] StomatocytesSFirstHealth Physician GroupComment on above:Performed By: #### DIFF CBC ####[address] [address] USAWBC (Bld) [#/Vol]15.7 10*3/uLHigh3.8-11.6The Counts Include [address] [facility] Physician GroupComment on above:Performed By: #### DIFF CBC ####[address] [address] USAWhite Blood Count15.7 [CFU]/mLHigh 3.8-11.6The Counts Include [address] [facility] Physician GroupComment on above:Performed By: #### DIFF CBC ####[address] [address] [facility] Glucose Poct Glucometerson 13-56-4071Pjgzwft8Pgx6: Cleaned [facility] Physician GroupComment on above:Result Comment: PERFORMED BY:[facility] [place], [place] [phone] MEDICAL JACKELYN VÁZQUEZ M.D.Performed By: #### GLULS ####Point of Care testing,Glucose [Mass/Vol]86 mg/dLMorton Plant North Bay Hospital Physician GroupComment on above:Result Comment: Random Glucose Reference Range is dependent on time and content of last meal. Glucose of more than 200 mg/dL in a nonstressed, ambulatory subject supports the diagnosis of Diabetes Mellitus.Performed By: #### GLULS ####Point of Care testing,Gram Stainon 77-58-1971Prcgusuhdfo observation Gram stain Nom (Unsp spec)Gram Stain Result 2+ White Blood Cells 1+ Epithelial Cells 2+ Yeast Like Elements PERFORMED BY: [facility] [address] [place] [address] PATHOLOGIST GLASS BREAKER CARLOS VÁZQUEZ M.D.NormalThe Counts Include [address] [facility] Physician GroupComment on above: Performed By: #### AERC, GS ####[facility] [place] [address] [place]ISTAT Glucose Pocon 28-39-7589Llpsfzy [Mass/Vol]100 mg/tCYmgzjx93-824Msi Counts Include [address] [facility] Physician GroupComment on above:Result Comment: PERFORMED BY:[place] [address] [place], [place] [phone] MEDICAL JACKELYN VÁZQUEZ M.D.Performed By: #### ISGLU ####Point of Care testing,Glucose [Mass/Vol]107 mg/eHDrpc10-676Osx Counts Include [address] [facility] Physician GroupComment on above:Result Comment: PERFORMED BY:[address] [place], [place] [phone] MEDICAL JACKELYN VÁZQUEZ M.D.Performed By: #### ISGLU ####Point of Care testing,XR chest 1V portableon 72-65-4116CQ chest 1V portableNormLee Health Coconut Point Physician GroupArterial Blood Gason 38-96-5014GQW Base Excess-1.5 mmol/LNormal-3.0-3.0[facility] Physician GroupComment on above:Performed By: #### ABG ####Point of Care testing,ABG Frac Inspired O230 %NormalPhysicians Regional Medical Center [facility] Physician GroupComment on above:Performed By: #### ABG ####Point of Care testing,ABG Oxygen Content5.9 mmol/LLow6.6-9.7The Counts Include [address] Physician Group Comment on above:Performed By: #### ABG ####Point of Care testing,ABG Oxygen Lrntxgculi61.8 %Ncyfqw50.0-100.0The Counts Include [address] Physician GroupComment on above: Performed By: #### ABG ####Point of Care testing,ABG MYY209.8 mm[Hg]Off scale low35.0-45.0[facility] Physician GroupComment on above:Performed By: #### ABG ####Point of Care testing,ABG BHCR2MjnzrqBnrLee Health [facility]oconut Point Physician GroupComment on above:Performed By: #### ABG ####Point of Care testing,ABG PH7.50High 7.35-7.45The Counts Include [address] [facility] Physician GroupComment on above:Performed By: #### ABG ####Point of Care testing,ABG RU5052.7 mm[Hg]High80.0-100.0[facility] Physician GroupComment on above:Performed By: #### ABG ####Point of Care testing,ABG TV450 mLNormalThe Counts Include [address] [facility] Physician GroupComment on above: Performed By: #### ABG ####Point of Care testing,CO2 [Moles/Vol]21.9 mmol/LLow 23.0-27.0[facility] Physician GroupComment on above:Performed By: #### ABG ####Point of Care testing,HCO3 (Bld) [Moles/Vol]21.0 mmol/LLow23.0-29.0[facility] Physician GroupComment on above:Performed By: #### ABG ####Point of Care testing,Respiratory CriticalNormLee Health [facility]ocon[facility] Point Physician GroupComment on above:Result Comment: Critical Value called on: 11/09/2024 at 20:53PERFORMED BY:[facility] [place], [place] [phone] MEDICAL DIRECTORCARLOS VÁZQUEZ M.D.Performed By: #### ABG ####Point of Care testing,VBG Draw SiteRight [facility] Physician GroupComment on above:Performed By: #### ABG ####Point of Care testing,ABG Base Excess-9.3 mmol/LLow-3.0-3.0The Counts Include [address] Physician Group Comment on above:Performed By: #### ABG ####Point of Care testing,ABG Frac Inspired O230 %NormalThe Counts Include [address] [facility] Physician GroupComment on above:Performed By: #### ABG ####Point of Care testing,ABG Oxygen Content5.8 mmol/LLow6.6-9.7The Counts Include [address] [facility] Physician GroupComment on above:Performed By: #### ABG ####Point of Care testing,ABG Oxygen Thrdggxpgm03.4 %Gkydxx84.0-100.0[facility] Physician GroupComment on above:Performed By: #### ABG ####Point of Care testing,ABG PCO2 33.9 mm[Hg]Low35.0-45.0The Counts Include [address] [facility] Physician GroupComment on above:Performed By: #### ABG ####Point of Care testing,ABG QLQR9AgolmiX[address] [place] [address] Physician GroupComment on above:Performed By: #### ABG ####Point of Care testing,ABG PH 7.30Low7.35-7.45[facility] Physician GroupComment on above:Performed By: #### ABG ####Point of Care testing,ABG MD4546.4 mm[Hg]Off scale high80.0-100.0[facility] Physician GroupComment on above:Performed By: #### ABG ####Point of Care testing,ABG TV450 mLNormalThe Counts Include [address] [facility] Physician GroupComment on above: Performed By: #### ABG ####Point of Care testing,CO2 [Moles/Vol]17.3 mmol/LLow 23.0-27.0The Counts Include [address] [facility] Physician GroupComment on above:Performed By: #### ABG ####Point of Care testing,HCO3 (Bld) [Moles/Vol]16.2 mmol/LLow23.0-29.0The Counts Include [address] [facility] Physician GroupComment on above:Performed By: #### ABG ####Point of Care testing,Respiratory CriticalNoFormerly [facility] Physician GroupComment on above:Result Comment: Critical Value called on: 11/09/2024 at 13:18PERFORMED BY:[facility] [place]ASHUIBROO[place], [place] [phone] MEDICAL DIRECTORCARLOS VÁZQUEZ M.D.Performed By: #### ABG ####Point of Care testing,Set Respiratory Jeqd18RnsxhmDfvMorton Plant [facility] Hospital Physician [facility] HospitalComment on above:Performed By: #### ABG ####Point of Care testing,VBG Draw SiteArtlineMorton Plant [facility] Bay Hospital Physician GroupComment on above: Performed By: #### ABG ####Point of Care testing,Ventilator ModeACMorton Plant North Bay Hospital Physician GroupComment on above:Performed By: #### ABG ####Point of Care testing,ABG Base Excess-8.2 mmol/LLow-3.0-3.0The Counts Include [address] Physician Group Comment on above:Order Comment: drawn from HD catheter by RNPerformed By: #### ABG ####Point of Care testing,ABG Frac Inspired O230 %NormalThe Counts Include [facility] Physician GroupComment on above:Order Comment: drawn from HD catheter by RN Performed By: #### ABG ####Point of Care testing,ABG Oxygen Content4.8 mmol/LLow 6.6-9.7The Counts Include [facility] Physician GroupComment on above:Order Comment: drawn from HD catheter by RNPerformed By: #### ABG ####Point of Care testing,ABG Oxygen Ejuvcjcdkt02.3 %Low95.0-100.0The Counts Include [facility] Physician GroupComment on above:Order Comment: drawn from HD catheter by RNPerformed By: #### ABG ####Point of Care testing,ABG IPK731.3 mm[Hg]Bbfqfa81.0-45.0The Counts Include [facility] Physician GroupComment on above:Order Comment: drawn from HD catheter by RNPerformed By: #### ABG ####Point of Care testing,ABG HBER2WljvmrMheFormerly [facility] Physician GroupComment on above:Order Comment: drawn from HD catheter by RNPerformed By: #### ABG ####Point of Care testing,ABG PH7.29Low7.35-7.45The Counts Include [facility] Comment on above:Order Comment: drawn from HD catheter by RNPerformed By: #### ABG ####Point of Care testing,ABG PO250.1 mm[Hg]Low80.0-100.0The Counts Include [facility] Physician GroupComment on above:Order Comment: drawn from HD catheter by RN Performed By: #### ABG ####Point of Care testing,ABG TV450 mLNormalThe Counts Include [facility] Physician GroupComment on above:Order Comment: drawn from HD catheter by RN Performed By: #### ABG ####Point of Care testing,CO2 [Moles/Vol]19.0 mmol/LLow 23.0-27.0The Counts Include [facility] Physician GroupComment on above:Order Comment: drawn from HD catheter by RNPerformed By: #### ABG ####Point of Care testing,HCO3 (Bld) [Moles/Vol]17.8 mmol/LLow23.0-29.0The Counts Include [facility] Physician GroupComment on above: Order Comment: drawn from HD catheter by RNPerformed By: #### ABG ####Point of Care testing,Respiratory CriticalNoFormerly [facility] Physician GroupComment on above:Order Comment: drawn from HD catheter by RNResult Comment: Critical Value called on: 11/09/2024 at 13:16PERFORMED BY:[id number] [place], [place] [phone] MEDICAL DIRECTORCARLOS VÁZQUEZ M.D.Performed By: #### ABG ####Point of Care testing,Set Respiratory Ucpn19ZgqwqqRwgFormerly [facility] Physician GroupComment on above:Order Comment: drawn from HD catheter by RNPerformed By: #### ABG ####Point of Care testing,VBG Draw SiteOtherMorton Plant [facility] Physician GroupComment on above:Order Comment: drawn from HD catheter by RNPerformed By: #### ABG ####Point of Care testing, Ventilator ModeACMorton Plant North Bay Hospital Physician GroupComment on above:Order Comment: drawn from HD catheter by RNPerformed By: #### ABG ####Point of Care testing,ABG Base Excess-8.0 mmol/LLow-3.0-3.0The Counts Include [address] [facility] Comment on above:Performed By: #### ABG ####Point of Care testing,ABG Frac Inspired O230 %NormalPhysicians [facility] Physician GroupComment on above:Performed By: #### ABG ####Point of Care testing,ABG Oxygen Content5.5 mmol/LLow6.6-9.7The Counts Include [address] [facility] Physician GroupComment on above:Performed By: #### ABG ####Point of Care testing,ABG Oxygen Xsmnecjhxd10.8 %Fdkkpb15.0-100.0[facility] Physician GroupComment on above:Performed By: #### ABG ####Point of Care testing,ABG PCO2 35.6 mm[Hg]Alqcwq54.0-45.0[facility] Physician GroupComment on above: Performed By: #### ABG ####Point of Care testing,ABG RXWT4MoadioIevFormerly [facility] Physician GroupComment on above:Performed By: #### ABG ####Point of Care testing,ABG PH7.31Low7.35-7.45[facility] Physician GroupComment on above: Performed By: #### ABG ####Point of Care testing,ABG JM9263.3 mm[Hg]High 80.0-100.0[facility] Physician GroupComment on above:Performed By: #### ABG ####Point of Care testing,ABG TV450 mLNormalThe Counts Include [facility] Physician GroupComment on above:Performed By: #### ABG ####Point of Care testing,CO2 [Moles/Vol]18.6 mmol/LLow23.0-27.0The Counts Include [facility] Physician GroupComment on above:Performed By: #### ABG ####Point of Care testing,HCO3 (Bld) [Moles/Vol]17.5 mmol/LLow23.0-29.0 The Counts Include [facility] Physician GroupComment on above:Performed By: #### ABG ####Point of Care testing,Respiratory CriticalNoFormerly [facility] Physician GroupComment on above:Result Comment: Critical Value called on: 11/09/2024 at 06:07PERFORMED BY:[address] [place], [place] [phone] MEDICAL DIRECTORCARLOS VÁZQUEZ M.D.Performed By: #### ABG ####Point of Care testing,Set Respiratory Beuw54LhzmqfDmyMorton Plant [facility] Hospital Physician GroupComment on above:Performed By: #### ABG ####Point of Care testing,VBG Draw SiteArtlineMorton Plant North [facility] Hospital Physician GroupComment on above: Performed By: #### ABG ####Point of Care testing,Ventilator ModeACMorton Plant North [facility] Hospital Physician GroupComment on above:Performed By: #### ABG ####Point of Care testing,Basic Metabolic Panelon 66-09-5305Skkpt gap [Moles/Vol]19.1 mmol/L High6.0-15.0The Counts Include [facility] Physician GroupComment on above:Performed By: #### BMP ####[address] [address] [place] Calcium [Mass/Vol]9.2 mg/dLNormal8.6-10.3The Counts Include [address] [facility] Physician GroupComment on above:Performed By: #### BMP ####[address] [address] USAChloride [Moles/Vol]106 mmol/HEpemex90-197Jtv Counts Include [address] [facility] Physician GroupComment on above:Performed By: #### BMP ####[address] [address] USACO2 [Moles/Vol]19.2 mmol/LLow21.0-31.0The Counts Include [facility] Physician GroupComment on above:Performed By: #### BMP ####[address] [address] USACreatinine [Mass/Vol]3.48 mg/dLHigh0.60-1.20The Counts Include [address] [facility] Comment on above:Performed By: #### BMP ####[address] [address] USACreatinine Clr Calc Ssnhidey42.92NormalThCaribou Memorial Hospital Physician GroupComment on above:Result Comment: PERFORMED BY:[address] [place]AMARCUSRadhaHUI, [place] [phone] MEDICAL JACKELYN VÁZQUEZ M.D.Performed By: #### BMP ####[address] [address] USAGFR/1.73 sq M.predicted MDRD (S/P/Bld) [Vol rate/Area]13.238 mL/min/{1.73_m2}NormalThe Counts Include [address] [facility] Physician GroupComment on above:Performed By: #### BMP ####[address] [address] USAGlucose [Mass/Vol]113 mg/dIGuys20-855Eyb Counts Include [facility] Physician GroupComment on above:Result Comment: Random Glucose Reference Range is dependent on time and content of last meal. Glucose of more than 200 mg/dL in a nonstressed, ambulatory subject supports the diagnosis of Diabetes Mellitus. ADA recommended reference rangePerformed By: #### BMP ####[address] [address] USAPotassium [Moles/Vol]3.3 mmol/LLow3.5-5.1The Counts Include [address] [facility] Physician GroupComment on above:Performed By: #### BMP ####[address] [address] USASodium [Moles/Vol]141 mmol/BFqxnay617-069Iqe Counts Include [address] [facility] Physician GroupComment on above:Performed By: #### BMP ####[address] [address] USAUrea nitrogen [Mass/Vol]62 mg/dLHigh7-25The Counts Include [address] [facility] Physician GroupComment on above: Performed By: #### BMP ####[address] [address] USADiff and CBCon 89-04-5889Fymhwuyzfald Ql (Bld)Slight NormalThe Counts Include [address] [facility] Physician GroupComment on above:Performed By: #### DIFF CBC ####[address] [address] USABand form neutrophils/100 WBC (Bld)2 %Normal0-5The Counts Include [address] [facility] Physician GroupComment on above:Performed By: #### DIFF CBC ####[address] [address] USAErythrocyte distribution width (RBC) [Ratio] 16.7 %High11.9-15.3The Counts Include [address] [facility] Physician GroupComment on above:Performed By: #### DIFF CBC ####[id number] USAHematocrit (Bld) [Volume fraction]25.0 %Low34.0-46.4The Counts Include [address] [facility] Physician GroupComment on above:Performed By: #### DIFF CBC ####[address] [address] USAHemoglobin (Bld) [Mass/Vol]8.2 g/dLLow11.8-15.4The Counts Include [address] [facility] Physician GroupComment on above: Performed By: #### DIFF CBC ####[address] [address] USAHypochromasiaModerateNormLee Health [facility] Physician GroupComment on above:Performed By: #### DIFF CBC ####[address] [address] USALarge PlateletsSlightNoFormerly [facility] Physician GroupComment on above:Result Comment: PERFORMED BY:[address] [place], [place] [phone] MEDICAL JACKELYN VÁZQUEZ M.D.Performed By: #### DIFF CBC ####[address] [place] [address] USALymphocytes/100 WBC (Bld)5 %Htw05-03Wql Counts Include [address] [facility] Physician GroupComment on above:Performed By: #### DIFF CBC ####[address] [address] [facility] ([facility]) [Entitic mass]27.5 lgUomvnx53.7-34.3The Counts Include [address] [facility] Comment on above:Performed By: #### DIFF CBC ####[address]V (RBC) [Entitic vol]83.5 fLNormal 80-100The Counts Include [address] [facility] Physician GroupComment on above:Performed By: #### DIFF CBC ####[place] [address] USAMean Corpuscular HGB Conc33.0 g/sDVyxksm17.0-35.0The Counts Include [address] [facility] Physician GroupComment on above:Performed By: #### DIFF CBC ####[id number] USAMetamyelocytes7 %High0-0The Counts Include [address] [facility] Physician GroupComment on above:Performed By: #### DIFF CBC ####[id number] USAMonocytes/100 WBC (Bld)8 %Normal2-11The Counts Include [address] [facility] Physician GroupComment on above:Performed By: #### DIFF CBC ####[address] [address] USAMyelocytes6 %High0-0The Counts Include [address] [facility] Physician GroupComment on above: Performed By: #### DIFF CBC ####[address] [address] USANucleated Red Blood Cell1 /100{WBC}High0-0The Counts Include [address] [facility] Physician GroupComment on above:Performed By: #### DIFF CBC ####[address] [address] [place] OvalocytesSlightNormalThe Counts Include [address] [facility] Physician GroupComment on above:Performed By: #### DIFF CBC ####[address] [address] USAPlatelet EstimateNormalNormalNormLee Health [facility] Physician Group Comment on above:Performed By: #### DIFF CBC ####[address] [address] USAPlatelet mean volume (Bld) [Entitic vol]8.0 fLNormal6.3-10.7The Counts Include [address] [facility] Physician GroupComment on above:Performed By: #### DIFF CBC ####[address] [address] USAPlatelets (Bld) [#/Vol]212 10*3/fKHbkbny539-875Czn Counts Include [address] [facility] Physician GroupComment on above:Performed By: #### DIFF CBC ####[address] [address] USAPoikilocytosisSlight NormalThe Counts Include [address] [facility] Physician GroupComment on above:Performed By: #### DIFF CBC ####[address] [address] [place] PolychromasiaSlightNormLee Health [facility] Physician GroupComment on above:Performed By: #### DIFF CBC ####[address] [address] USAPromyelocytes2 %High0-0The Counts Include [address] [facility] Physician GroupComment on above:Performed By: #### DIFF CBC ####[address] [address] USARBC (Bld) [#/Vol]2.99 10*6/uLLow3.60-5.00The Counts Include [address] [facility] Physician GroupComment on above:Performed By: #### DIFF CBC ####[address] [address] [place] Segmented neutrophils/100 WBC (Bld)72 %Ohgs69-94Fcv Counts Include [address] [facility] Comment on above:Performed By: #### DIFF CBC ####[address] [address] USAStomatocytesSlightNoFormerly [facility] Physician GroupComment on above:Performed By: #### DIFF CBC ####[address] [address] USAWBC (Bld) [#/Vol]12.6 10*3/uLHigh3.8-11.6The Counts Include [address] [facility] Physician GroupComment on above:Performed By: #### DIFF CBC ####[address] [address] USAWhite Blood Count12.6 [CFU]/mLHigh3.8-11.6The Counts Include [address] [facility] Comment on above:Performed By: #### DIFF CBC ####[address] [address] USAISTAT Glucose Pocon 70-67-1924Gvvbmzc [Mass/Vol]92 mg/kSPgurhq59-507Bxw Counts Include [address] [facility] Physician [facility] HospitalComment on above: Result Comment: PERFORMED BY:[address] WEISSAlirioHUIBROOKS, [place] [phone] MEDICAL JACKELYN VÁZQUEZ M.D.Performed By: #### ISGLU ####Point of Care testing,Glucose [Mass/Vol]103 mg/fIGrnqmf58-472Bgu Counts Include [address] [facility] Physician [facility] HospitalComment on above:Result Comment: PERFORMED BY:[address] SNYDERRadhaHUIBROOKS, [place] [phone] MEDICAL JACKELYN VÁZQUEZ M.D.Performed By: #### ISGLU ####Point of Care testing,Triglycerideson 58-53-0831Ysfallntgeop [Mass/Vol]212 mg/aJDypw50-030Wml Counts Include [address] [facility] Physician GroupComment on above: Result Comment: TRIG ATP III CLASSIFICATION TRIG less than 150 mg/dL Normal TRIG 150-199 mg/dL Borderline high TRIG 200-500 mg/dL High TRIG greater than 500 mg/dL Very high Standard traceable to the Center for Disease Conrtrol and Prevention (CDC) test method.PERFORMED BY:[address] [place], [place] [phone] MEDICAL JACKELYN VÁZQEUZ M.D.Performed By: #### TRIG ####[address] [place] [address] USAVancomycin,Randomon 11-09-2024 Vancomycin,Azngie46.7Uynwtd3.0-20.0The Counts Include [address] [facility] Physician GroupComment on above:Order Comment: Date of last dose?: [id number] Time of last dose?: 99Result Comment: Last dose: -PERFORMED BY:[address] [place]ETZELBROOKS, [place] [phone] MEDICAL DIRECTORCARLOS VÁZQUEZ M.D.Performed By: #### VANCR ####[address] [address] USAXR chest 1V portableon 16-73-1551OL chest 1V portableNoParkview Health Bryan HospitalArterial Blood Gason 54-38-8030LMK Base Excess-6.4 mmol/LLow-3.0-3.0The Counts Include [address] [facility] Physician GroupComment on above: Performed By: #### ABG ####Point of Care testing,ABG Frac Inspired O230 %Normal The Counts Include [address] [facility] Physician GroupComment on above:Performed By: #### ABG ####Point of Care testing,ABG Oxygen Content5.8 mmol/LLow6.6-9.7The Counts Include [address] [facility] Physician GroupComment on above:Performed By: #### ABG ####Point of Care testing,ABG Oxygen Ppwjxlpmpw26.7 %Mpuuky71.0-100.0The Counts Include [address] [facility] Physician GroupComment on above:Performed By: #### ABG ####Point of Care testing,ABG FDC960.7 mm[Hg]Normal 35.0-45.0The Counts Include [address] [facility] Physician GroupComment on above:Performed By: #### ABG ####Point of Care testing,ABG JPPD9UqntjpDgxLee Health [facility] Physician GroupComment on above:Performed By: #### ABG ####Point of Care testing,ABG PH7.33Low7.35-7.45 [facility] Physician GroupComment on above:Performed By: #### ABG ####Point of Care testing,ABG OS1588.8 mm[Hg]High80.0-100.0The Counts Include [address] [facility] Comment on above:Performed By: #### ABG ####Point of Care testing,ABG TV450 mL NormalThe Counts Include [address] [facility] Physician GroupComment on above:Performed By: #### ABG ####Point of Care testing,CO2 [Moles/Vol]20.0 mmol/LLow23.0-27.0The Counts Include [address] [facility] Physician GroupComment on above:Performed By: #### ABG ####Point of Care testing,HCO3 (Bld) [Moles/Vol]18.9 mmol/LLow23.0-29.0The Counts Include [address] [facility] Physician GroupComment on above:Performed By: #### ABG ####Point of Care testing, Respiratory CriticalNormLee Health [facility] Physician GroupComment on above:Result Comment: Critical Value called on: 11/08/2024 at 06:38PERFORMED BY:[address] [place], [place] [phone] MEDICAL DIRECTORCARLOS VÁZQUEZ M.D.Performed By: #### ABG ####Point of Care testing,Set Respiratory Toif60SyoqqdCyj [place] Physician [facility] HospitalComment on above:Performed By: #### ABG ####Point of Care testing,VBG Draw SiteArtline NormalThe Counts Include [address] [facility] Physician GroupComment on above:Performed By: #### ABG ####Point of Care testing,Ventilator ModeACNoFormerly [facility] Physician [facility] Comment on above:Performed By: #### ABG ####Point of Care testing,Basic Metabolic Panelon 90-83-1072Uhrwg gap [Moles/Vol]16.8 mmol/LHigh6.0-15.0The Counts Include [address] [facility] Physician GroupComment on above:Performed By: #### BMP ####[address] [address] USACalcium [Mass/Vol]8.7 mg/dLNormal8.6-10.3The Counts Include [address] [facility] Physician GroupComment on above:Performed By: #### BMP ####[address] [address] USAChloride [Moles/Vol]107 mmol/VXwybld54-949Itf Counts Include [address] [facility] Comment on above:Performed By: #### BMP ####[address] [address] USACO2 [Moles/Vol]19.4 mmol/LLow21.0-31.0The Counts Include [address] [facility] Physician GroupComment on above:Performed By: #### BMP ####[address] [address] USACreatinine [Mass/Vol] 3.21 mg/dLHigh0.60-1.20The Counts Include [address] [facility] Physician GroupComment on above:Performed By: #### BMP ####[address] [address] USACreatinine Clr Calc Zsyfboxl46.18NormLee Health [facility]ician Group Comment on above:Result Comment: PERFORMED BY:[address] [place], [place] [phone] MEDICAL DIRECTORCARLOS VÁZQUEZ M.D.Performed By: #### BMP ####[address] [address] USAGFR/1.73 sq M.predicted MDRD (S/P/Bld) [Vol rate/Area]14.585 mL/min/{1.73_m2}NormalThe Counts Include [address] [facility] Physician GroupComment on above:Performed By: #### BMP ####[address] [address] USAGlucose [Mass/Vol]112 mg/uVGtpu01-037 The Counts Include [address] [facility] Physician GroupComment on above:Result Comment: Random Glucose Reference Range is dependent on time and content of last meal. Glucose of more than 200 mg/dL in a nonstressed, ambulatory subject supports the diagnosis of Diabetes Mellitus. ADA recommended reference rangePerformed By: #### BMP ####[address] [address] [place] Potassium [Moles/Vol]3.2 mmol/LLow3.5-5.1The Counts Include [address] [facility] Physician GroupComment on above:Performed By: #### BMP ####[place] [address] USASodium [Moles/Vol]140 mmol/KIishkk342-772Heo Counts Include [address] [facility] Physician GroupComment on above:Performed By: #### BMP ####[place] [address] USAUrea nitrogen [Mass/Vol]56 mg/dLHigh7-25The Counts Include [address] [facility] Physician GroupComment on above: Performed By: #### BMP ####[place] [id number] USADiff and CBCon 25-81-6570Tmwljcmugfzk Ql (Bld)Slight NormalThe Counts Include [address] [facility] Physician GroupComment on above:Performed By: #### PATH SLIDE REV, DIFF CBC ####[place] [address] USABand form neutrophils/100 WBC (Bld)6 %High0-5The Counts Include [address] [facility] Physician GroupComment on above:Performed By: #### PATH SLIDE REV, DIFF CBC ####[place] [address] [place] Erythrocyte distribution width (RBC) [Ratio]16.7 %High11.9-15.3The Counts Include [address] [facility] Physician GroupComment on above:Performed By: #### PATH SLIDE REV, DIFF CBC ####[place] [address] USAGiant Platelet Tally2 /100{WBC}NormalThe Counts Include [address] [facility] Physician GroupComment on above: Performed By: #### PATH SLIDE REV, DIFF CBC ####[place] [address] USAHematocrit (Bld) [Volume fraction]26.5 %Low34.0-46.4The Counts Include [address] [facility] Physician GroupComment on above:Performed By: #### PATH SLIDE REV, DIFF CBC ####[place] [address] USAHemoglobin (Bld) [Mass/Vol]8.8 g/dLLow11.8-15.4The Counts Include [address] [facility] Physician GroupComment on above:Performed By: #### PATH SLIDE REV, DIFF CBC ####[address] [address] USAHypochromasiaModerateNormLee Health [facility] Physician GroupComment on above: Performed By: #### PATH SLIDE REV, DIFF CBC ####[address] [address] USALarge PlateletsSlightNormLee Health [facility] Physician GroupComment on above:Result Comment: PERFORMED BY:[address] ABHISHEKSHEILAHUI, [place] [phone] MEDICAL JACKELYN VÁZQUEZ M.D.Performed By: #### PATH SLIDE REV, DIFF CBC ####[place] [id number] [place] Lymphocytes/100 WBC (Bld)2 %Yrz70-25Anx Counts Include [address] [facility] Physician GroupComment on above:Performed By: #### PATH SLIDE REV, DIFF CBC ####[address] [address] [facility] ([facility]BC) [Entitic mass]27.7 pgNormal 24.7-34.3The Counts Include [address] [facility] Physician GroupComment on above:Performed By: #### PATH SLIDE REV, DIFF CBC ####[address] [address] [facility] (RBC) [Entitic vol]82.9 oPDhyyrh81-708Tyy Counts Include [address] [facility] Physician GroupComment on above:Performed By: #### PATH SLIDE REV, DIFF CBC ####[place] [id number] USAMean Corpuscular HGB Conc33.4 g/rSFmcskg13.0-35.0The Counts Include [address] [facility] Physician GroupComment on above: Performed By: #### PATH SLIDE REV, DIFF CBC ####[place] [phone] USAMetamyelocytes7 %High0-0The Counts Include [address] [facility] Physician GroupComment on above:Performed By: #### PATH SLIDE REV, DIFF CBC ####[place] [id number] [place] Monocytes/100 WBC (Bld)8 %Normal2-11The Counts Include [address] [facility] Physician GroupComment on above:Performed By: #### PATH SLIDE REV, DIFF CBC ####[address] [address] USAMyelocytes2 %High0-0The Counts Include [address] [facility] Physician GroupComment on above:Performed By: #### PATH SLIDE REV, DIFF CBC ####[address] [address] [place] Nucleated Red Blood Cell3 /100{WBC}High0-0The Counts Include [address] [facility] Physician GroupComment on above:Performed By: #### PATH SLIDE REV, DIFF CBC ####[address] [address] USAOvalocytesSlightNormLee Health [facility] Physician GroupComment on above:Performed By: #### PATH SLIDE REV, DIFF CBC ####[address] [address] USAPlasma Cells3 %High0-0The Counts Include [address] [facility] Physician GroupComment on above:Performed By: #### PATH SLIDE REV, DIFF CBC ####[address] [address] USAPlatelet EstimateNormalNormalNormLee Health Coconut Point Physician GroupComment on above:Performed By: #### PATH SLIDE REV, DIFF CBC ####[address] [address] [place] Platelet mean volume (Bld) [Entitic vol]8.0 fLNormal6.3-10.7The Counts Include [facility] Physician GroupComment on above:Result Comment: PERFORMED BY:[address] [place], [place] [phone] MEDICAL JACKELYN VÁZQUEZ M.D.Performed By: #### PATH SLIDE REV, DIFF CBC ####[address] [address] [place] Platelets (Bld) [#/Vol]200 10*3/yZFnwknb048-765Brw Counts Include [facility]ician Group Comment on above:Performed By: #### PATH SLIDE REV, DIFF CBC ####[address] [address] USAPoikilocytosisSlight NormalPhysicians [facility] Physician GroupComment on above:Performed By: #### PATH SLIDE REV, DIFF CBC ####[address] [address] USAPolychromasiaModerateNoFormerly [facility] Physician GroupComment on above:Performed By: #### PATH SLIDE REV, DIFF CBC ####[address] [address] USARBC (Bld) [#/Vol]3.19 10*6/uLLow 3.60-5.00The Counts Include [facility] Physician GroupComment on above:Performed By: #### PATH SLIDE REV, DIFF CBC ####[place] [id number] USARouleauxSlightNoFormerly [facility] Physician GroupComment on above: Performed By: #### PATH SLIDE REV, DIFF CBC ####[address] [address] USASegmented neutrophils/100 WBC (Bld)72 %Xylc86-06JelPhysicians Regional [facility] Physician GroupComment on above:Performed By: #### PATH SLIDE REV, DIFF CBC ####[address] [address] USAStomatocytesSlightNoFormerly [facility] Physician GroupComment on above:Performed By: #### PATH SLIDE REV, DIFF CBC ####[address] [address] USAWBC (Bld) [#/Vol]10.2 10*3/uLNormal 3.8-11.6The Counts Include [address] [facility] Physician GroupComment on above:Performed By: #### PATH SLIDE REV, DIFF CBC ####[address] [address] USAWhite Blood Count10.2 [CFU]/mLNormal3.8-11.6The Counts Include [address] [facility] Physician GroupComment on above:Performed By: #### PATH SLIDE REV, DIFF CBC ####[address] [address] USAGlucose Poct Glucometerson 33-88-7248Qkfvmvr9QwgpblDpa [place] Physician [facility] HospitalComment on above:Result Comment: Glu2: WILL NOTIFY DR/RNPERFORMED BY:[place] [address] [place] [place], [place] [phone] BDU VÁZQUEZ M.D.Performed By: #### GLULS ####Point of Care testing, Glucose [Mass/Vol]52 mg/dLOff scale [facility] Physician [facility] HospitalComment on above:Result Comment: Random Glucose Reference Range is dependent on time and content of last meal. Glucose of more than 200 mg/dL in a nonstressed, ambulatory subject supports the diagnosis of Diabetes Mellitus.Performed By: #### GLULS ####Point of Care testing,[address] Physician [facility] Comment on above:Result Comment: Glu2: Will Repeat TestPERFORMED BY:[address] [address] [address] [place], [place] [phone] MEDICAL JACKELYN VÁZQUEZ M.D.Performed By: #### GLULS ####Point of Care testing,Glucose [Mass/Vol]32 mg/dLOff scale [facility] Physician Group Comment on above:Result Comment: Random Glucose Reference Range is dependent on time and content of last meal. Glucose of more than 200 mg/dL in a nonstressed, ambulatory subject supports the diagnosis of Diabetes Mellitus.Performed By: #### GLULS ####Point of Care testing,ISTAT Glucose Pocon 65-72-4847Kgrxwmj [Mass/Vol]100 mg/rBFkmsbl72-439Qfi [place] Physician GroupComment on above: Result Comment: PERFORMED BY:[address] [address] [address] [place], [place] [phone] BUD VÁZQUEZ M.D.Performed By: #### ISGLU ####Point of Care testing,Glucose [Mass/Vol]95 mg/cYFjtbqi07-489Xff Counts Include [address] [facility] Physician GroupComment on above:Result Comment: PERFORMED BY:[address] [address] [place] [place], [place] [phone] MEDICAL JACKELYN VÁZQUEZ M.D.Performed By: #### ISGLU ####Point of Care testing,Glucose [Mass/Vol]99 mg/jJYtptrm98-274Puo Counts Include [address] [facility] Physician [facility] HospitalComment on above:Result Comment: PERFORMED BY:[address] [place], [place] [phone] MEDICAL JACKELYN VÁZQUEZ M.D.Performed By: #### ISGLU ####Point of Care testing,[place] 45-88-4938PHqhkpgVji [facility] University Health NetworkPathologist Slide Reviewon 70-22-8287Jixmcxalabh Slide ReviewOrdered Path ReviewNormSpanish Peaks Regional Health CenterComment on above:Result Comment: PERFORMED BY:[address] [place], [place] [phone] BUD VÁZQUEZ M.D.Performed By: #### PATH SLIDE REV, DIFF CBC ####[address] [address] [place] Vancomycin,Randomon 78-01-6109Nagejvjvip,Uffvzg17.6High5.0-20.0The Counts Include [address] [facility] Physician [facility] HospitalComment on above:Order Comment: Date of last dose?: 20241105 Time of last dose?: 2299Result Comment: Last dose: -PERFORMED BY:[address] [place], [place] [phone] MEDICAL JACKELYN VÁZQUEZ M.D.Performed By: #### VANCR ####[address] [address] USAXR chest 1V portableon 03-63-4387UF chest 1V portableNoParkview Health Bryan HospitalArterial Blood Gason 25-25-5292YZS Base Excess-5.4 mmol/LLow-3.0-3.0The Counts Include [address] [facility] Physician [facility] HospitalComment on above:Performed By: #### ABG ####Point of Care testing,ABG Frac Inspired O230 %NormalThe Counts Include [address] [facility] Physician GroupComment on above:Performed By: #### ABG ####Point of Care testing,ABG Oxygen Content6.1 mmol/LLow6.6-9.7The Counts Include [address] [facility] Physician GroupComment on above:Performed By: #### ABG ####Point of Care testing,ABG Oxygen Tzduqgbbts49.1 %Lwqquc49.0-100.0The Counts Include [address] [facility] Physician GroupComment on above:Performed By: #### ABG ####Point of Care testing,ABG PCO2 33.3 mm[Hg]Low35.0-45.0The Counts Include [address] [facility] Physician GroupComment on above:Performed By: #### ABG ####Point of Care testing,ABG WFEF9QhalidQjuFormerly [facility] Physician GroupComment on above:Performed By: #### ABG ####Point of Care testing,ABG PH 7.61Dhcanj7.35-7.45The Counts Include [address] [facility] Physician [facility] HospitalComment on above:Performed By: #### ABG ####Point of Care testing,ABG XO5234.8 mm[Hg]High80.0-100.0The Counts Include [address] [facility] Physician GroupComment on above:Performed By: #### ABG ####Point of Care testing,ABG TV450 mLNormalThe Counts Include [address] [facility] Physician GroupComment on above: Performed By: #### ABG ####Point of Care testing,CO2 [Moles/Vol]20.1 mmol/LLow 23.0-27.0The Counts Include [address] [facility] Physician [facility] HospitalComment on above:Performed By: #### ABG ####Point of Care testing,HCO3 (Bld) [Moles/Vol]19.0 mmol/LLow23.0-29.0The Counts Include [address] [facility] Physician GroupComment on above:Performed By: #### ABG ####Point of Care testing,Respiratory CriticalNoFormerly [facility] Physician [facility] HospitalComment on above:Result Comment: Critical Value called on: 11/07/2024 at 17:37PERFORMED BY:[address] [address] [address] [place], [place] [phone] MEDICAL DIRECTORCARLOS VÁZQUEZ M.D.Performed By: #### ABG ####Point of Care testing,Set Respiratory Kaqx00JfflmoCqz [place] Physician GroupComment on above:Performed By: #### ABG ####Point of Care testing,VBG Draw SiteArtlineMorton Plant North Bay Hospital Physician GroupComment on above: Performed By: #### ABG ####Point of Care testing,Ventilator ModeACMorton Plant North Bay Hospital Physician GroupComment on above:Performed By: #### ABG ####Point of Care testing,ABG Base Excess-5.7 mmol/LLow-3.0-3.0The Counts Include [address] [facility] Physician Group Comment on above:Performed By: #### ABG ####Point of Care testing,ABG Frac Inspired O230 %NormalThe Counts Include [address] [facility] Physician GroupComment on above:Performed By: #### ABG ####Point of Care testing,ABG Oxygen Content5.9 mmol/LLow6.6-9.7The Counts Include [address] [facility] Physician GroupComment on above:Performed By: #### ABG ####Point of Care testing,ABG Oxygen Bkrskomyub43.5 %Idqhjb56.0-100.0[facility] Physician GroupComment on above:Performed By: #### ABG ####Point of Care testing,ABG PCO2 31.8 mm[Hg]Low35.0-45.0[facility] Physician GroupComment on above:Performed By: #### ABG ####Point of Care testing,ABG NRBC0XthrizWyyMorton Plant North [facility] Hospital Physician GroupComment on above:Performed By: #### ABG ####Point of Care testing,ABG PH 7.18Neagbv5.35-7.45[facility] Physician GroupComment on above:Performed By: #### ABG ####Point of Care testing,ABG PO289.4 mm[Hg]Ncpigd03.0-100.0[facility] Physician GroupComment on above:Performed By: #### ABG ####Point of Care testing,ABG TV450 mLNormalThe Counts Include [address] [facility] Physician GroupComment on above: Performed By: #### ABG ####Point of Care testing,CO2 [Moles/Vol]19.5 mmol/LLow 23.0-27.0[facility] Physician GroupComment on above:Performed By: #### ABG ####Point of Care testing,HCO3 (Bld) [Moles/Vol]18.5 mmol/LLow23.0-29.0The Counts Include [address] [facility] Physician GroupComment on above:Performed By: #### ABG ####Point of Care testing,Respiratory CriticalNoFormerly [facility] Physician GroupComment on above:Result Comment: Critical Value called on: 11/07/2024 at 12:06PERFORMED BY:[facility] [place], [place] [phone] MEDICAL DIRECTORCARLOS VÁZQUEZ M.D.Performed By: #### ABG ####Point of Care testing,Set Respiratory Oubx02SengitOkxMorton Plant North [facility] Hospital Physician GroupComment on above:Performed By: #### ABG ####Point of Care testing,VBG Draw SiteArtlineMorton Plant North Bay Hospital Physician GroupComment on above: Performed By: #### ABG ####Point of Care testing,ABG Base Excess-7.0 mmol/LLow -3.0-3.0The Counts Include [address] [facility] Physician GroupComment on above:Performed By: #### ABG ####Point of Care testing,ABG Frac Inspired O230 %NormalThe Counts Include [address] [facility] Physician GroupComment on above:Performed By: #### ABG ####Point of Care testing,ABG Oxygen Content6.4 mmol/LLow6.6-9.7The Counts Include [address] [facility] Physician GroupComment on above: Performed By: #### ABG ####Point of Care testing,ABG Oxygen Aspeysgobz61.0 % Aikaqh92.0-100.0The Counts Include [address] [facility] Physician GroupComment on above:Performed By: #### ABG ####Point of Care testing,ABG RWC367.0 mm[Hg]Low35.0-45.0The Counts Include [address] [facility] Physician GroupComment on above:Performed By: #### ABG ####Point of Care testing,ABG EGIC6YjyvwoXhgMorton Plant North Bay Hospital Physician GroupComment on above:Performed By: #### ABG ####Point of Care testing,ABG PH7.47Nkxzkx7.35-7.45The Counts Include [address] [facility] Physician GroupComment on above:Performed By: #### ABG ####Point of Care testing,ABG PO295.5 mm[Hg]Wzkufw27.0-100.0The Counts Include [address] [facility] Physician GroupComment on above:Performed By: #### ABG ####Point of Care testing,ABG TV450 mLNormalThe Counts Include [address] [facility] Physician GroupComment on above:Performed By: #### ABG ####Point of Care testing,CO2 [Moles/Vol]18.1 mmol/LLow23.0-27.0The Counts Include [address] [facility] Physician Group Comment on above:Performed By: #### ABG ####Point of Care testing,HCO3 (Bld) [Moles/Vol]17.2 mmol/LLow23.0-29.0The Counts Include [address] [facility] Physician GroupComment on above: Performed By: #### ABG ####Point of Care testing,Respiratory CriticalNoFormerly [facility] Physician GroupComment on above:Result Comment: Critical Value called on: 11/07/2024 at 05:09PERFORMED BY:[facility] [place], [place] [phone] MEDICAL DIRECTORCARLOS VÁZQUEZ M.D.Performed By: #### ABG ####Point of Care testing,Set Respiratory Rate12 NormalThe Counts Include [address] [facility] Physician GroupComment on above:Performed By: #### ABG ####Point of Care testing,VBG Draw SiteArtlineNoFormerly [facility] Physician GroupComment on above:Performed By: #### ABG ####Point of Care testing,ABG Base Excess-5.9 mmol/LLow-3.0-3.0The Counts Include [address] [facility] Physician GroupComment on above: Performed By: #### ABG ####Point of Care testing,ABG Frac Inspired O230 %Normal The Counts Include [address] [facility] Physician GroupComment on above:Performed By: #### ABG ####Point of Care testing,ABG Oxygen Content6.8 mmol/LNormal6.6-9.7The Counts Include [address] [facility] Physician GroupComment on above:Performed By: #### ABG ####Point of Care testing,ABG Oxygen Kwnvrjqgjt49.5 %Ksujqm74.0-100.0The Counts Include [address] [facility] Physician GroupComment on above:Performed By: #### ABG ####Point of Care testing,ABG EJE414.7 mm[Hg]Off scale low35.0-45.0The Counts Include [address] [facility] Physician GroupComment on above:Performed By: #### ABG ####Point of Care testing,ABG EZGC1QtwlulIipFormerly [facility] Physician Group Comment on above:Performed By: #### ABG ####Point of Care testing,ABG PH7.42 Normal7.35-7.45The Counts Include [address] [facility] Physician GroupComment on above:Performed By: #### ABG ####Point of Care testing,ABG OZ1935.0 mm[Hg]High80.0-100.0The Counts Include [address] [facility] Physician GroupComment on above:Performed By: #### ABG ####Point of Care testing,ABG TV450 mLNormalThe Counts Include [address] [facility] Physician GroupComment on above: Performed By: #### ABG ####Point of Care testing,CO2 [Moles/Vol]18.3 mmol/LLow 23.0-27.0The Counts Include [address] [facility] Physician GroupComment on above:Performed By: #### ABG ####Point of Care testing,HCO3 (Bld) [Moles/Vol]17.4 mmol/LLow23.0-29.0The Counts Include [address] [facility] Physician GroupComment on above:Performed By: #### ABG ####Point of Care testing,Respiratory CriticalNoFormerly [facility] Physician GroupComment on above:Result Comment: Critical Value called on: 11/07/2024 at 00:37PERFORMED BY:[place] [address] [address] [place], [place] [phone] MEDICAL DIRECTORCARLOS VÁZQUEZ M.D.Performed By: #### ABG ####Point of Care testing,Set Respiratory Hhep97VnyqaqAzuFormerly [facility] Physician GroupComment on above:Performed By: #### ABG ####Point of Care testing,VBG Draw SiteArtlineMorton Plant [facility] Hospital Physician [facility] HospitalComment on above: Performed By: #### ABG ####Point of Care testing,Ventilator ModeACMorton Plant North Bay Hospital Physician GroupComment on above:Performed By: #### ABG ####Point of Care testing,Comprehensive Metabolic Panelon 67-75-4386Ydnvcfy [Mass/Vol]2.4 g/dLLow3.5-5.7The Counts Include [address] [facility] Physician GroupComment on above:Performed By: #### CMP, HEPATIC, TRIG, DIFF CBC ####[address] [address] USAAlbumin/Globulin [Mass ratio]1.2 {ratio}NormalThe Counts Include [address] [facility] Physician GroupComment on above:Performed By: #### CMP, HEPATIC, TRIG, DIFF CBC ####[address] [address] USAALP [Catalytic activity/Vol]156 U/SWzup79-995Oji Counts Include [address] [facility] Physician Group Comment on above:Performed By: #### CMP, HEPATIC, TRIG, DIFF CBC ####[address] [address] USAALT [Catalytic activity/Vol]917 U/LHigh7-52The St. [facility] University Health NetworkComment on above: Performed By: #### CMP, HEPATIC, TRIG, DIFF CBC ####[address] [address] USAAnion gap [Moles/Vol]15.6 mmol/LHigh 6.0-15.0The Counts Include [address] [facility] Physician GroupComment on above:Performed By: #### CMP, HEPATIC, TRIG, DIFF CBC ####[address] [address] USAAST [Catalytic activity/Vol]661 U/OVlwa98-33Lvu St. [facility] University Health NetworkComment on above:Performed By: #### CMP, HEPATIC, TRIG, DIFF CBC ####[address] [address] [place] Bilirubin [Mass/Vol]0.7 mg/dLNormal0.3-1.0The Counts Include [address] [facility] Physician GroupComment on above:Performed By: #### CMP, HEPATIC, TRIG, DIFF CBC ####[place] [address] USACalcium [Mass/Vol]8.0 mg/dLLow 8.6-10.3The Counts Include [address] [facility] Physician GroupComment on above:Performed By: #### CMP, HEPATIC, TRIG, DIFF CBC ####[place] [address] USAChloride [Moles/Vol]109 mmol/NRoxx27-744Tuw Counts Include [address] [facility] Physician GroupComment on above:Performed By: #### CMP, HEPATIC, TRIG, DIFF CBC ####[place] [address] USACO2 [Moles/Vol]18.8 mmol/LLow21.0-31.0The Counts Include [address] [facility] Physician GroupComment on above: Performed By: #### CMP, HEPATIC, TRIG, DIFF CBC ####[place] [address] USACreatinine [Mass/Vol]2.93 mg/dL Significant change down0.60-1.20The Counts Include [address] [facility] Physician GroupComment on above: Performed By: #### CMP, HEPATIC, TRIG, DIFF CBC ####[place] [address] USACreatinine Clr Calc Ulxxpvfy16.44 NormalThe Counts Include [address] [facility] Physician GroupComment on above:Performed By: #### CMP, HEPATIC, TRIG, DIFF CBC ####[place] [address] USAGFR/1.73 sq M.predicted MDRD (S/P/Bld) [Vol rate/Area] 16.273 mL/min/{1.73_m2}NormalThe Counts Include [address] [facility] Physician GroupComment on above: Performed By: #### CMP, HEPATIC, TRIG, DIFF CBC ####[place] [address] USAGlobulin (S) [Mass/Vol]2.0 g/dLNormal The Counts Include [address] [facility] Physician GroupComment on above:Performed By: #### CMP, HEPATIC, TRIG, DIFF CBC ####[address] [address] USAGlucose [Mass/Vol]101 mg/vOVnny30-588Otj Counts Include [address] [facility] Physician Group Comment on above:Result Comment: Random Glucose Reference Range is dependent on time and content of last meal. Glucose of more than 200 mg/dL in a nonstressed, ambulatory subject supports the diagnosis of Diabetes Mellitus. ADA recommended reference rangePerformed By: #### CMP, HEPATIC, TRIG, DIFF CBC ####[address] [address] USAPotassium [Moles/Vol] 3.4 mmol/LLow3.5-5.1The Counts Include [address] [facility] Physician GroupComment on above:Performed By: #### CMP, HEPATIC, TRIG, DIFF CBC ####[address] [address] USAProtein [Mass/Vol]4.4 g/dLLow6.4-8.9The Counts Include [address] [facility] Physician GroupComment on above:Performed By: #### CMP, HEPATIC, TRIG, DIFF CBC ####[address] [address] USASodium [Moles/Vol]140 mmol/TSbrjhs389-311Uaf Counts Include [address] [facility] Physician GroupComment on above: Performed By: #### CMP, HEPATIC, TRIG, DIFF CBC ####[address] [address] USAUrea nitrogen [Mass/Vol]51 mg/dLHigh 7-25The Counts Include [address] [facility] Physician GroupComment on above:Performed By: #### CMP, HEPATIC, TRIG, DIFF CBC ####[address] [address] USADiff and CBCon 16-93-4483Wekeuaixzckh Ql (Bld)Moderate NormalThe Counts Include 234 [facility] Physician GroupComment on above:Performed By: #### CMP, HEPATIC, TRIG, DIFF CBC ####[address] [address] USABand form neutrophils/100 WBC (Bld)6 %High0-5The Counts Include [address] [facility] Physician GroupComment on above:Performed By: #### CMP, HEPATIC, TRIG, DIFF CBC ####[address] [address] [place] Erythrocyte distribution width (RBC) [Ratio]16.6 %High11.9-15.3The Counts Include [address] [facility] Physician GroupComment on above:Performed By: #### CMP, HEPATIC, TRIG, DIFF CBC ####[address] [address] USAGiant Platelet Tally1 /100{WBC}NormalThe Counts Include 234 [facility] Physician GroupComment on above: Performed By: #### CMP, HEPATIC, TRIG, DIFF CBC ####[address] [address] USAHematocrit (Bld) [Volume fraction]30.4 %Low34.0-46.4The Counts Include [address] [facility] Physician GroupComment on above:Performed By: #### CMP, HEPATIC, TRIG, DIFF CBC ####[address] [address] USAHemoglobin (Bld) [Mass/Vol]10.1 g/dLLow11.8-15.4The Counts Include [address] [facility] Physician GroupComment on above:Performed By: #### CMP, HEPATIC, TRIG, DIFF CBC ####[address] [address] USAHypochromasiaMarkLarkin Community Hospital Physician GroupComment on above: Performed By: #### CMP, HEPATIC, TRIG, DIFF CBC ####[address] [address] USALymphocytes/100 WBC (Bld)3 %Jyc73-43 The Counts Include [address] Physician GroupComment on above:Performed By: #### CMP, HEPATIC, TRIG, DIFF CBC ####[address] [address] USAMacrocytosisSlightMorton Plant North Bay Hospital Physician GroupComment on above: Performed By: #### CMP, HEPATIC, TRIG, DIFF CBC ####[address] [address] USAMCH (RBC) [Entitic mass]27.7 pgNormal 24.7-34.3The Counts Include [address] [facility] Physician GroupComment on above:Performed By: #### CMP, HEPATIC, TRIG, DIFF CBC ####[address] [address] USAMCV (RBC) [Entitic vol]83.3 zGIijakt61-727Qzr Counts Include [address] [facility] Physician GroupComment on above:Performed By: #### CMP, HEPATIC, TRIG, DIFF CBC ####[address] [address] USAMean Corpuscular HGB Conc33.3 g/hPPnppdt63.0-35.0The Counts Include [address] [facility] Physician GroupComment on above:Performed By: #### CMP, HEPATIC, TRIG, DIFF CBC ####[address] [address] USAMetamyelocytes1 %High0-0The Counts Include [address] [facility] Physician GroupComment on above:Performed By: #### CMP, HEPATIC, TRIG, DIFF CBC ####[place] [id number] USAMonocytes/100 WBC (Bld)10 %Normal2-11The Counts Include [address] [facility] Physician GroupComment on above:Performed By: #### CMP, HEPATIC, TRIG, DIFF CBC ####[address] [address] USAMyelocytes2 %High0-0The Counts Include [address] [facility] Physician GroupComment on above:Performed By: #### CMP, HEPATIC, TRIG, DIFF CBC ####[address] [address] USANucleated Red Blood Cell1 /100{WBC}High0-0The Counts Include [address] [facility]ician Group Comment on above:Performed By: #### CMP, HEPATIC, TRIG, DIFF CBC ####[address] [address] USAPlatelet Estimate NormalNormalNormalThe Counts Include [address] [facility] Physician GroupComment on above:Performed By: #### CMP, HEPATIC, TRIG, DIFF CBC ####[address] [address] USAPlatelet mean volume (Bld) [Entitic vol]8.5 fLNormal 6.3-10.7The Counts Include 234 Beds [facility] Physician GroupComment on above:Performed By: #### CMP, HEPATIC, TRIG, DIFF CBC ####[address] [address] USAPlatelet MorphologyNormalNormalNoFormerly [facility] Physician GroupComment on above:Result Comment: PERFORMED BY:[address] [place], [place] [phone] MEDICAL DIRECTORCARLOS VÁZQUEZ M.D.Performed By: #### CMP, HEPATIC, TRIG, DIFF CBC ####[address] [address] [place] Platelets (Bld) [#/Vol]230 10*3/zYCztwss221-683Ynz Counts Include 234 Beds At [facility] Comment on above:Performed By: #### CMP, HEPATIC, TRIG, DIFF CBC ####[address] [address] USAPoikilocytosisSlight NormalPhysicians [facility] Physician GroupComment on above:Performed By: #### CMP, HEPATIC, TRIG, DIFF CBC ####[address] [address] USAPolychromasiaMarkedNoFormerly [facility] Physician [facility] Comment on above:Performed By: #### CMP, HEPATIC, TRIG, DIFF CBC ####[address] [address] USARBC (Bld) [#/Vol]3.65 10*6/uLNormal3.60-5.00The Counts Include 234 Beds At [facility] Physician GroupComment on above:Performed By: #### CMP, HEPATIC, TRIG, DIFF CBC ####[address] [address] USARouleauxSlightNoFormerly [facility] Physician GroupComment on above:Performed By: #### CMP, HEPATIC, TRIG, DIFF CBC ####[address] [address] [place] Segmented neutrophils/100 WBC (Bld)78 %Osrc39-23DtsPhysicians [facility] Physician [facility] Comment on above:Performed By: #### CMP, HEPATIC, TRIG, DIFF CBC ####[place] [address] USAWBC (Bld) [#/Vol]9.6 10*3/uLNormal3.8-11.6The Counts Include 234 Beds At [facility] Physician GroupComment on above:Performed By: #### CMP, HEPATIC, TRIG, DIFF CBC ####[place] [address] USAWhite Blood Count9.6 [CFU]/mLNormal3.8-11.6The Counts Include [address] Beds At [facility] Physician GroupComment on above:Performed By: #### CMP, HEPATIC, TRIG, DIFF CBC ####[place] [address] USAHepatic Panelon 24-52-9295Gbjxhyhzo,Indirect0.3 mg/dLNormalThe Counts Include 234 Beds At [facility] Physician GroupComment on above:Performed By: #### CMP, HEPATIC, TRIG, DIFF CBC ####[address] Bilirubin.indirect [Mass/Vol]0.40 mg/dLHigh0.03-0.18The Counts Include 234 Beds At [facility] Physician GroupComment on above:Performed By: #### CMP, HEPATIC, TRIG, DIFF CBC ####[place] [address] USAISTAT Glucose Pocon 61-28-5170Oxudfpt [Mass/Vol]100 mg/mSOsosyw63-070Clv Counts Include 234 Beds At [facility] Physician GroupComment on above:Result Comment: PERFORMED BY:[address] [address] [address] [place], [place] [phone] MEDICAL JACKELYN VÁZQUEZ M.D.Performed By: #### ISGLU ####Point of Care testing, Glucose [Mass/Vol]93 mg/aQBenhrg04-007Kwt Counts Include 234 Beds At [facility] Physician GroupComment on above:Result Comment: PERFORMED BY:[address] [address] [address] [place], [place] [phone] MEDICAL JACKELYN VÁZQUEZ M.D.Performed By: #### ISGLU ####Point of Care testing,Glucose [Mass/Vol]94 mg/aXMhrbed25-132Lvz Counts Include 234 Beds At [facility] Physician [facility] HospitalComment on above:Result Comment: PERFORMED BY:[address] [place], [place] [phone] MEDICAL JACKELYN VÁZQUEZ M.D.Performed By: #### ISGLU ####Point of Care testing,Triglycerideson 40-49-6796Edmatryjsuku [Mass/Vol]317 mg/dQRebc77-917Pbv Counts Include 234 Beds At [facility] Physician GroupComment on above: Result Comment: TRIG ATP III CLASSIFICATION TRIG less than 150 mg/dL Normal TRIG 150-199 mg/dL Borderline high TRIG 200-500 mg/dL High TRIG greater than 500 mg/dL Very high Standard traceable to the Center for Disease Conrtrol and Prevention (CDC) test method.PERFORMED BY:[address] [place], [place] [phone] MEDICAL JACKELYN VÁZQUEZ M.D.Performed By: #### CMP, HEPATIC, TRIG, DIFF CBC ####[address] [address] USAVancomycin,Randomon 30-63-2837Gmescjfjrb,Sfkkus01.3High5.0-20.0The Counts Include [address] Beds At [facility] Physician GroupComment on above:Order Comment: Date of last dose?: 20241105 Time of last dose?: 2329 Result Comment: Last dose: -PERFORMED BY:[address] [place]Z[address], [place] [phone] MEDICAL JACKELYN VÁZQUEZ M.D.Performed By: #### VANCR ####[address] [address] USAXR chest 1V portableon 68-05-7056YP chest 1V portableNormalThe St[address] Luke'S University Health NetworkArterial Blood Gason 90-28-4733LNA Base Excess-8.5 mmol/LLow-3.0-3.0The Counts Include 234 Beds At [facility] Physician [facility] HospitalComment on above: Performed By: #### ABG ####Point of Care testing,ABG Frac Inspired O230%Normal The Counts Include 234 Beds At [facility] Physician GroupComment on above:Performed By: #### ABG ####Point of Care testing,ABG Oxygen Content6.6 mmol/LNormal6.6-9.7The Counts Include 234 Beds At [facility] Physician GroupComment on above:Performed By: #### ABG ####Point of Care testing,ABG Oxygen Olfywhsiji29.5 %Babcya18.0-100.0The Counts Include [address] Beds At [facility] Physician GroupComment on above:Performed By: #### ABG ####Point of Care testing,ABG OWN706.4 mm[Hg]Off scale low35.0-45.0The Counts Include 234 Beds At [facility] Physician GroupComment on above:Performed By: #### ABG ####Point of Care testing,ABG NNSY3WnnlwjGhr Counts Include 234 Beds At [facility] Comment on above:Performed By: #### ABG ####Point of Care testing,ABG PH7.42 Normal7.35-7.45The Counts Include 234 Beds At [facility] Physician GroupComment on above:Performed By: #### ABG ####Point of Care testing,ABG UJ8517.7 mm[Hg]High80.0-100.0The Counts Include 234 Beds At [facility] Physician GroupComment on above:Performed By: #### ABG ####Point of Care testing,ABG TV450 mLNormalThe Counts Include 234 Beds At [facility] Physician GroupComment on above: Performed By: #### ABG ####Point of Care testing,CO2 [Moles/Vol]15.0 mmol/LLow 23.0-27.0The Counts Include 234 Beds At [facility] Physician GroupComment on above:Performed By: #### ABG ####Point of Care testing,HCO3 (Bld) [Moles/Vol]14.3 mmol/LLow23.0-29.0The Counts Include 234 Beds At [facility] Physician GroupComment on above:Performed By: #### ABG ####Point of Care testing,Respiratory CriticalNormalThe Counts Include 234 Beds At [facility] Physician GroupComment on above:Result Comment: Critical Value called on: 11/06/2024 at 18:12PERFORMED BY:[facility] [place], [place] [phone] MEDICAL DIRECTORCARLOS VÁZQUEZ M.D.Performed By: #### ABG ####Point of Care testing,Set Respiratory Itef62RoflhwYwo Firelands Physician GroupComment on above:Performed By: #### ABG ####Point of Care testing,VBG Draw SiteArtlineNoFormerly [facility] Physician GroupComment on above: Performed By: #### ABG ####Point of Care testing,ABG Base Excess-7.3 mmol/LLow -3.0-3.0[facility] Physician GroupComment on above:Performed By: #### ABG ####Point of Care testing,ABG Frac Inspired O230 %NormalThe Counts Include 234 Beds At [facility] Physician GroupComment on above:Performed By: #### ABG ####Point of Care testing,ABG Oxygen Content6.5 mmol/LLow6.6-9.7The Counts Include 234 Beds At [facility] Physician GroupComment on above: Performed By: #### ABG ####Point of Care testing,ABG Oxygen Grmutzdjpr02.3 % Ohncsn91.0-100.0The Counts Include 234 Beds At [facility] Physician GroupComment on above:Performed By: #### ABG ####Point of Care testing,ABG EJJ351.3 mm[Hg]Off scale low35.0-45.0[facility] Physician GroupComment on above:Performed By: #### ABG ####Point of Care testing,ABG EIXF3IjmhcpBjbMorton Plant [facility] Physician GroupComment on above: Performed By: #### ABG ####Point of Care testing,ABG PH7.82Vdhwqm7.35-7.45[facility] Physician GroupComment on above:Performed By: #### ABG ####Point of Care testing,ABG BT0233.4 mm[Hg]High80.0-100.0The Counts Include 234 Beds At [facility] Comment on above:Performed By: #### ABG ####Point of Care testing,ABG TV450 mL NormalThe Counts Include 234 Beds At [facility] Physician GroupComment on above:Performed By: #### ABG ####Point of Care testing,CO2 [Moles/Vol]16.1 mmol/LLow23.0-27.0The Counts Include 234 Beds At [facility] Physician GroupComment on above:Performed By: #### ABG ####Point of Care testing,HCO3 (Bld) [Moles/Vol]15.4 mmol/LLow23.0-29.0The Counts Include 234 Beds At [facility] Physician GroupComment on above:Performed By: #### ABG ####Point of Care testing, Respiratory CriticalMorton Plant North Bay Hospital Physician GroupComment on above:Result Comment: Critical Value called on: 11/06/2024 at 12:25PERFORMED BY:[facility] [place], [place] [phone] MEDICAL DIRECTORCARLOS VÁZQUEZ M.D.Performed By: #### ABG ####Point of Care testing,Set Respiratory Lmio20RdlcsvCkeFormerly [facility] Physician [facility] HospitalComment on above:Performed By: #### ABG ####Point of Care testing,VBG Draw SiteArtline NormalPhysicians [facility] Physician GroupComment on above:Performed By: #### ABG ####Point of Care testing,Ventilator ModeACNoFormerly [facility] Physician [facility] Comment on above:Performed By: #### ABG ####Point of Care testing,ABG Base Excess-4.9 mmol/LLow-3.0-3.0The Counts Include 234 Beds At [facility] Physician GroupComment on above: Performed By: #### ABG ####Point of Care testing,ABG Frac Inspired O240 %Normal The Counts Include 234 Beds At [facility] Physician GroupComment on above:Performed By: #### ABG ####Point of Care testing,ABG Oxygen Content7.4 mmol/LNormal6.6-9.7The Counts Include 234 Beds At [facility] Physician GroupComment on above:Performed By: #### ABG ####Point of Care testing,ABG Oxygen Dnvdevfpfa21.6 %Uzjbdw27.0-100.0The Counts Include 234 Beds At [facility] Physician GroupComment on above:Performed By: #### ABG ####Point of Care testing,ABG FNH650.8 mm[Hg]Off scale low35.0-45.0[facility] Physician GroupComment on above:Performed By: #### ABG ####Point of Care testing,ABG BMAM0VwdifnYqkFormerly [facility] Physician [facility] Comment on above:Performed By: #### ABG ####Point of Care testing,ABG PH7.44 Normal7.35-7.45The Counts Include 234 Beds At [facility] Physician GroupComment on above:Performed By: #### ABG ####Point of Care testing,ABG QF2538.0 mm[Hg]Off scale high80.0-100.0The Counts Include 234 Beds At [facility] Physician GroupComment on above:Performed By: #### ABG ####Point of Care testing,ABG TV450 mLNormalThe Counts Include 234 Beds At [facility] Physician GroupComment on above: Performed By: #### ABG ####Point of Care testing,CO2 [Moles/Vol]18.7 mmol/LLow 23.0-27.0The Counts Include 234 Beds At [facility] Physician GroupComment on above:Performed By: #### ABG ####Point of Care testing,HCO3 (Bld) [Moles/Vol]17.9 mmol/LLow23.0-29.0The Counts Include 234 Beds At [facility] Physician GroupComment on above:Performed By: #### ABG ####Point of Care testing,Respiratory CriticalNoFormerly [facility] Physician GroupComment on above:Result Comment: Critical Value called on: 11/06/2024 at 06:12PERFORMED BY:[address] [address] [address] [place], [place] [phone] MEDICAL DIRECTORCARLOS VÁZQUEZ M.D.Performed By: #### ABG ####Point of Care testing,Set Respiratory Svuk91JmisnsDq[address] [place] [address] Physician [facility] HospitalComment on above:Performed By: #### ABG ####Point of Care testing,VBG Draw SiteArtlineMorton Plant [facility] Hospital Physician GroupComment on above: Performed By: #### ABG ####Point of Care testing,Ventilator ModeACNoFormerly [facility] Physician GroupComment on above:Performed By: #### ABG ####Point of Care testing,ABG Base Excess-5.4 mmol/LLow-3.0-3.0The Counts Include 234 Beds At [facility] Comment on above:Performed By: #### ABG ####Point of Care testing,ABG Oxygen Content6.9 mmol/LNormal6.6-9.7The Counts Include 234 Beds At [facility] Physician GroupComment on above: Performed By: #### ABG ####Point of Care testing,ABG Oxygen Ohbzqggilq23.0 % Gmspvv86.0-100.0The Counts Include 234 Beds At [facility] Physician GroupComment on above:Performed By: #### ABG ####Point of Care testing,ABG SBD290.1 mm[Hg]Off scale low35.0-45.0The Counts Include 234 Beds At [facility] Physician GroupComment on above:Performed By: #### ABG ####Point of Care testing,ABG PH7.36Bmqfcr4.35-7.45The Counts Include 234 Beds At [facility] Physician GroupComment on above:Performed By: #### ABG ####Point of Care testing,ABG NC7649.3 mm[Hg]Off scale high80.0-100.0The Counts Include 234 Beds At [facility] Physician GroupComment on above:Performed By: #### ABG ####Point of Care testing,ABG TV400 mLNormalThe Counts Include 234 Beds At [facility] Physician GroupComment on above:Performed By: #### ABG ####Point of Care testing,CO2 [Moles/Vol]17.9 mmol/LLow23.0-27.0The Counts Include 234 Beds At [facility] Physician GroupComment on above: Performed By: #### ABG ####Point of Care testing,HCO3 (Bld) [Moles/Vol]17.2 mmol/LLow23.0-29.0The Counts Include 234 Beds At [facility] Physician GroupComment on above:Performed By: #### ABG ####Point of Care testing,Comprehensive Metabolic Panelon 11-06-2024 Albumin [Mass/Vol]2.6 g/dLLow3.5-5.7The Counts Include 234 Beds At [facility] Physician GroupComment on above:Performed By: #### CMP, DIFF CBC ####[facility] [address] [place] [address] USAAlbumin/Globulin [Mass ratio]1.2 {ratio}Normal The Counts Include 234 Beds At [facility] Physician GroupComment on above:Performed By: #### CMP, DIFF CBC ####[facility] [address] [place] [address] USAALP [Catalytic activity/Vol]185 U/XRdys69-861Lyu Counts Include 234 Beds At [facility] Physician GroupComment on above:Performed By: #### CMP, DIFF CBC ####[address] [place] [address] USAALT [Catalytic activity/Vol]1419 U/LHigh7-52 The Counts Include 234 Beds At [facility] Physician GroupComment on above:Performed By: #### CMP, DIFF CBC ####[address] [place] [address] USAAnion gap [Moles/Vol]13.5 mmol/LNormal6.0-15.0The Counts Include 234 Beds At [facility] Physician GroupComment on above:Performed By: #### CMP, DIFF CBC ####[address] [address] USAAST [Catalytic activity/Vol]1912 U/ZWlxi62-91 The Counts Include 234 Beds At [facility] Physician GroupComment on above:Performed By: #### CMP, DIFF CBC ####[address] [address] [place] Bilirubin [Mass/Vol]1.0 mg/dLNormal0.3-1.0The Counts Include 234 Beds At [facility] Physician GroupComment on above:Performed By: #### CMP, DIFF CBC ####[address] [address] USACalcium [Mass/Vol]7.9 mg/dLLow8.6-10.3The Counts Include 234 Beds At [facility] Physician GroupComment on above:Performed By: #### CMP, DIFF CBC ####[address] [address] [place] Chloride [Moles/Vol]112 mmol/TJoza84-383Elj Counts Include 234 Beds At [facility] Physician GroupComment on above:Performed By: #### CMP, DIFF CBC ####[address] [address] USACO2 [Moles/Vol]19.1 mmol/LLow21.0-31.0The Counts Include 234 Beds At [facility] Physician GroupComment on above:Performed By: #### CMP, DIFF CBC ####[address] [address] [place] Creatinine [Mass/Vol]2.09 mg/dLSignificant change down0.60-1.20The Counts Include 234 Beds At [facility] Physician GroupComment on above:Performed By: #### CMP, DIFF CBC ####[address] [place] [address] USACreatinine Clr Calc Vfnhgvug60.61NormLee Health Coconut Point Physician GroupComment on above:Result Comment: PERFORMED BY:[address] [place], [place] [phone] MEDICAL DIRECTORCARLOS VÁZQUEZ M.D.Performed By: #### CMP, DIFF CBC ####[address] [address] USAGFR/1.73 sq M.predicted MDRD (S/P/Bld) [Vol rate/Area]24.408 mL/min/{1.73_m2}NormalThe Counts Include 234 Beds At [facility] Physician GroupComment on above:Performed By: #### CMP, DIFF CBC ####[address] [address] USAGlobulin (S) [Mass/Vol]2.1 g/dLNoFormerly [facility] Physician GroupComment on above:Performed By: #### CMP, DIFF CBC ####[address] [address] USAGlucose [Mass/Vol]107 mg/jHZukt82-962Yvd Counts Include 234 Beds At [facility] Physician GroupComment on above:Result Comment: Random Glucose Reference Range is dependent on time and content of last meal. Glucose of more than 200 mg/dL in a nonstressed, ambulatory subject supports the diagnosis of Diabetes Mellitus. ADA recommended reference rangePerformed By: #### CMP, DIFF CBC ####[address] [address] USAPotassium [Moles/Vol]3.6 mmol/LNormal3.5-5.1The Counts Include 234 Beds At [facility] Physician GroupComment on above:Performed By: #### CMP, DIFF CBC ####[address] [address] USAProtein [Mass/Vol]4.7 g/dLLow 6.4-8.9The Counts Include 234 Beds At [facility] Physician GroupComment on above:Performed By: #### CMP, DIFF CBC ####[id number] USASodium [Moles/Vol]141 mmol/TIvasrb698-436Xcg Counts Include 234 Beds At [facility] Physician GroupComment on above:Performed By: #### CMP, DIFF CBC ####[address] USAUrea nitrogen [Mass/Vol]43 mg/dLHigh 7-25The Counts Include 234 Beds At [facility] Physician GroupComment on above:Performed By: #### CMP, DIFF CBC ####[address] [facility] Creatinine, Urine (Random)on 05-35-4662Ihqojfwpaw, Urine (Random)88.00 mg/dL NormalThe Counts Include 234 Beds At [facility] Physician GroupComment on above:Result Comment: No reference range establishedPERFORMED BY:[address] [place], [place] [phone] MEDICAL DIRECTORCARLOS VÁZQUEZ M.D.Performed By: #### UCREA ####[place] [address] USADiff and CBCon 82-00-6445Ajnurocqtahe Ql (Bld)Slight NormalThe Counts Include 234 Beds At [facility] Physician GroupComment on above:Performed By: #### CMP, DIFF CBC ####[address] Band form neutrophils/100 WBC (Bld)8 %High0-5The Counts Include 234 Beds At [facility] Comment on above:Performed By: #### CMP, DIFF CBC ####[place] [address] USAErythrocyte distribution width (RBC) [Ratio]16.8 %High11.9-15.3The Counts Include 234 Beds At [facility] Physician [facility] HospitalComment on above: Performed By: #### CMP, DIFF CBC ####[id number] USAHematocrit (Bld) [Volume fraction]33.6 %Low34.0-46.4 The Counts Include 234 Beds At [facility] Physician GroupComment on above:Performed By: #### CMP, DIFF CBC ####[address] [facility] Hemoglobin (Bld) [Mass/Vol]11.2 g/dLLow11.8-15.4The Counts Include 234 Beds At [facility]ician Group Comment on above:Performed By: #### CMP, DIFF CBC ####[place] [address] USAHypochromasiaSlightNoFormerly [facility] Physician GroupComment on above:Performed By: #### CMP, DIFF CBC ####[address] Lymphocytes/100 WBC (Bld)5 %Kof55-79Czk Counts Include 234 Beds At [facility] Physician GroupComment on above:Performed By: #### CMP, DIFF CBC ####[address] StreetMCH (RBC) [Entitic mass]27.7 dmKimbou05.7-34.3 The Counts Include 234 Beds At [facility] Physician GroupComment on above:Performed By: #### CMP, DIFF CBC ####[address] (RBC) [Entitic vol]83.0 bQYzsvnb89-993Vbx Counts Include 234 Beds At [facility] Physician GroupComment on above:Performed By: #### CMP, DIFF CBC ####[address] Corpuscular HGB Conc33.3 g/dLNormal 32.0-35.0The Counts Include 234 Beds At [facility] Physician GroupComment on above:Performed By: #### CMP, DIFF CBC ####[place] [address] USAMonocytes/100 WBC (Bld)4 %Normal2-11The Counts Include 234 Beds At [facility] Physician GroupComment on above:Performed By: #### CMP, DIFF CBC ####[place] [address] USAPlatelet EstimateNormalNormalNormLee Health [facility]ocon[facility] Point Physician GroupComment on above:Performed By: #### CMP, DIFF CBC ####[address] Platelet mean volume (Bld) [Entitic vol]8.6 fLNormal6.3-10.7The Counts Include 234 Beds At [facility] Physician GroupComment on above:Result Comment: PERFORMED BY:[address] [place], [place] [phone] MEDICAL JACKELYN VÁZQUEZ M.D.Performed By: #### CMP, DIFF CBC ####[address] [address] USAPlatelet Morphology NormalNormalNormalThe Counts Include 234 Beds At [facility] Physician GroupComment on above:Result Comment: PERFORMED BY:[address] [address] [address] [place], [place] [phone] MEDICAL DIRECTORCARLOS VÁZQUEZ M.D.Performed By: #### CMP, DIFF CBC ####[address] [address] USAPlatelets (Bld) [#/Vol]277 10*3/mNMgtjnh285-087Lnx Counts Include 234 Beds At [facility] Physician [facility] HospitalComment on above:Performed By: #### CMP, DIFF CBC ####[address] [address] USAPolychromasiaSlight NormalThe Counts Include 234 Beds At [facility] Physician GroupComment on above:Performed By: #### CMP, DIFF CBC ####[address] [address] [place] Promyelocytes1 %High0-0The Counts Include 234 Beds At [facility] Physician [facility] HospitalComment on above:Performed By: #### CMP, DIFF CBC ####[address] [address] USARBC (Bld) [#/Vol]4.04 10*6/uLNormal3.60-5.00The Counts Include 234 Beds At [facility] Physician GroupComment on above:Performed By: #### CMP, DIFF CBC ####[address] [address] [place] Segmented neutrophils/100 WBC (Bld)83 %Kthu41-98Dch Counts Include 234 Beds At [facility] Physician Group Comment on above:Performed By: #### CMP, DIFF CBC ####[address] [address] USAWBC (Bld) [#/Vol]9.0 10*3/uLNormal 3.8-11.6The Counts Include 234 Beds At [facility] Physician GroupComment on above:Performed By: #### CMP, DIFF CBC ####[address] [address] USAWhite Blood Count9.0 [CFU]/mLNormal3.8-11.6The Counts Include 234 Beds At [facility] Physician Group Comment on above:Performed By: #### CMP, DIFF CBC ####[address] [address] USADipstick and Microscopicon 11-06-2024 Appearance (U)Slightly cloudyCritically abnormalClearThe Counts Include 234 Beds At [facility] Physician GroupComment on above:Order Comment: Name Collection Type:: Pandya Catheter Performed By: #### ADDONUAPLUS, CUU ####[address] USABacteria,Urine2+ [HPF]NormalNone SeenThe Counts Include 234 Beds [facility] Physician GroupComment on above:Order Comment: Name Collection Type:: Pandya CatheterPerformed By: #### ADDONUAPLUS, CUU ####[address], [id number] USABilirubin,UrineNegativeNormalNegative The Counts Include [facility] Physician GroupComment on above:Order Comment: Name Collection Type:: Pandya CatheterPerformed By: #### ADDONUAPLUS, CUU ####[address] USABudding Yeast,Urine4+ [HPF] NormalNone SeenPhysicians Regional Medical [facility] Physician GroupComment on above:Order Comment: Name Collection Type:: Pandya CatheterResult Comment: PERFORMED BY:[address] [address] [place], [place] [phone] MEDICAL DIRECTORCARLOS VÁZQUEZ M.D.Performed By: #### ADDONUAPLUS, CUU ####[address] USAColor (U)Dark-Yellow Critically abnormalYellowThe Counts Include [facility] Physician GroupComment on above:Order Comment: Name Collection Type:: Pandya CatheterPerformed By: #### ADDONUAPLUS, CUU ####[address], [place] [place] Glucose Ql (U)NormalNormalNormalThCaribou Memorial Hospital Physician GroupComment on above: Order Comment: Name Collection Type:: Pandya CatheterPerformed By: #### ADDONUAPLUS, CUU ####[address] [place] [address] USAHyaline Casts,UrineNoneNormal0-8The Counts Include [facility] Physician GroupComment on above:Order Comment: Name Collection Type:: Pandya CatheterPerformed By: #### ADDONUAPLUS, CUU ####[address] [place] [address] USAKetones Ql (U)TraceNormalNegativePhysicians [facility] Physician GroupComment on above:Order Comment: Name Collection Type:: Pandya CatheterPerformed By: #### ADDONUAPLUS, CUU ####[address] [place] [address] USALeukocyte esterase Test strip Ql (U)3+NormalNegativePhysicians [facility] Physician GroupComment on above:Order Comment: Name Collection Type:: Pandya CatheterPerformed By: #### ADDONUAPLUS, CUU ####[address] [id number] USAMucus,UrineRareNormalPhysicians [facility] Physician GroupComment on above:Order Comment: Name Collection Type:: Pandya CatheterPerformed By: #### ADDONUAPLUS, CUU ####[address] [id number] USANitrite,UrineNegativeNormalNegativePhysicians [facility] Physician GroupComment on above:Order Comment: Name Collection Type:: Pandya CatheterPerformed By: #### ADDONUAPLUS, CUU ####[address] [id number] USAOccult Blood,Urine3+NormalNegativeThe Counts Include [facility] Physician GroupComment on above:Order Comment: Name Collection Type:: Pandya CatheterResult Comment: PERFORMED BY:[address] [address] [place], [place] [phone] MEDICAL DIRECTORCARLOS VÁZQUEZ M.D.Performed By: #### JOSE LUIS, CUU ####[address] [place], [id number] USApH (U)5.5 [pH]Normal5.0-9.0The Counts Include [facility] Physician GroupComment on above:Order Comment: Name Collection Type:: Pandya CatheterPerformed By: #### JOSE LUIS, CUU ####[address] Hinojosasandhills regional medical centerkathleen, [address] USAProtein (U) [Mass/Vol]30 mg/dLNormal NegativeThe Counts Include [facility] Physician GroupComment on above:Order Comment: Name Collection Type:: Pandya CatheterPerformed By: #### JOSE LUIS, CUU ####[address] Hinojosasandhills regional medical centerkathleen, [id number] [place] RBC,UrineInnumerableNormal0-4The Counts Include [facility] Physician GroupComment on above:Order Comment: Name Collection Type:: Pandya CatheterPerformed By: #### JOSE LUIS, CUU ####[address] [address] [place], [place] [place] Specificy [place],Urine1.768Ckuqcd7.001-1.030The Counts Include [address] [facility] Physician Group Comment on above:Order Comment: Name Collection Type:: Pandya CatheterPerformed By: #### JOSE LUIS, CUU ####[address], [id number] USASquamous Epithelial Cell,Rogxr2-5Exfhdz6-8Qrd Counts Include [facility] Physician GroupComment on above:Order Comment: Name Collection Type:: Pandya CatheterPerformed By: #### JOSE LUIS, CUU ####[address], TH[address] USAUrobilinogen,UrineNormalNormalNormal The Counts Include [address] [facility] Physician GroupComment on above:Order Comment: Name Collection Type:: Pandya CatheterPerformed By: #### ANAPLUS, CUU ####[facility] [facility], [place] USAWBC CLUMP, UrineManyNormalNone SeenThe Counts Include [facility] Physician GroupComment on above:Order Comment: Name Collection Type:: Pandya CatheterPerformed By: #### ADDONUAPLUS, CUU ####[address] USAWBC,Cvhhe99-74Akjjdf5-2Fif Counts Include [address] [facility] Physician GroupComment on above:Order Comment: Name Collection Type:: Pandya CatheterPerformed By: #### ADDONUAPLUS, CUU ####[address] USADrug Screen,Urineon 11-06-2024 Amphetamine Screen,UrineNegativeNormalNegativeThe Counts Include [address] [facility] Physician Group Comment on above:Performed By: #### URDS ####[address] [address] USABarbiturate Screen,UrineNegativeNormalNegative The Counts Include [facility] Physician GroupComment on above:Performed By: #### URDS ####[address] [address] [place] Benzodiazepines Screen,UrinePositiveNormalNegativeThe Counts Include [address] [facility] Physician [facility] Comment on above:Performed By: #### URDS ####[address] [address] USACannabinoid Screen,UrineNegativeNormalNegative The Counts Include [address] [facility] Physician [facility] HospitalComment on above:Result Comment: These are unconfirmed results and should not be used for legal purposes. Drug Cut-Off Concentration: AMPH 1000 ng/mL VIRGILIO 200 ng/mL OSCAR 200 ng/mL COCM 300 ng/mL OP 300 ng/mL PCP 25 ng/mL THC 20 ng/mLPERFORMED BY:[address] [address] [address] [place], [place] [phone] MEDICAL JACKELYN VÁZQUEZ M.D.Performed By: #### URDS ####[address] [address] USACocaine Screen,UrineNegative NormalNegativeThe Counts Include [facility] Physician GroupComment on above:Performed By: #### URDS ####[facility] [address] [place] [address] [place] Opiate Screen,UrineNegativeNormalNegativeThe Counts Include [address] [facility] Physician GroupComment on above:Performed By: #### URDS ####[facility] [place] [address] USAPhencyclidine Screen,UrineNegativeNormalNegativeThe Counts Include [address] [facility] Physician GroupComment on above:Performed By: #### URDS ####[address] [address] USAECH echo transthoracicon 22-96-0544FOB echo transthoracicNormalThe St. Luke'S University Health NetworkISTAT Glucose Pocon 70-08-6194Rbmmzfm [Mass/Vol]91 mg/xWDypgaz09-558Alj Counts Include [address] [facility] Physician [facility] HospitalComment on above:Result Comment: PERFORMED BY:[address] [address] FIELDSCHRISTINE WETZEL[place]OO[place], [place] [phone] MEDICAL JACKELYN VÁZQUEZ M.D.Performed By: #### ISGLU ####Point of Care testing,Glucose [Mass/Vol]96 mg/vDWwhlic68-972Xvr Counts Include [facility] Physician Group Comment on above:Result Comment: PERFORMED BY:[address] [address] FIELDSCHRISTINE WETZELBROOKS, [place] [phone] MEDICAL JACKELYN VÁZQUEZ M.D.Performed By: #### ISGLU ####Point of Care testing, Glucose [Mass/Vol]115 mg/qJLifz58-257Bae Counts Include [address] [facility] Physician GroupComment on above:Result Comment: PERFORMED BY:[address] [address] FIELDSCHRISTINE SALASHUIBROOKS, [place] [phone] MEDICAL JACKELYN VÁZQUEZ M.D.Performed By: #### ISGLU ####Point of Care testing,Sodium, Urine (Random)on 95-24-8222Bxydqs (U) [Moles/Vol]25 mmol/LNormalThe Counts Include [address] [facility] Physician Group Comment on above:Result Comment: No reference range establishedPERFORMED BY:[address] [phone] MEDICAL DIRECTORCARLOS VÁZQUEZ M.D.Performed By: #### SANGEETA ####[address] [address] USAUrine Cultureon 30-15-1103Hyrlhtqt identified Cx Nom (U)ORGANISM: Clau albicans (O:CANALB) [place] Count >100,000 PERFORMED BY: [address] [address] PATHOLOGIST GLASS BREAKER CARLOS VÁZQEUZ M.D.NormalPhysicians Regional Medical Center [facility] Physician GroupComment on above: Performed By: #### ADDCHRISTELLEUATESSA, CUU ####[address] USABacteria identified Cx Nom (U)ORGANISM: Clau albicans (O:CANALB) [place] Count >100,000 PERFORMED BY: [address] [address] PATHOLOGIST GLASS BREAKER CARLOS VÁZQUEZ M.D.NormalThe Counts Include [facility] Physician GroupComment on above: Performed By: #### CUU ####[address] [address] USAXR chest 1V portableon 72-82-0673EW chest 1V portableNormalThe Counts Include [facility] Physician GroupArterial Blood Gason 00-62-1050JMK Base Excess-6.1 mmol/LLow-3.0-3.0The Counts Include [address] [facility] Physician GroupComment on above: Performed By: #### ABG ####Point of Care testing,ABG Frac Inspired O250 %Normal The Counts Include [address] [facility] Physician GroupComment on above:Performed By: #### ABG ####Point of Care testing,ABG Oxygen Content6.7 mmol/LNormal6.6-9.7The Counts Include [address] [facility] Physician GroupComment on above:Performed By: #### ABG ####Point of Care testing,ABG Oxygen Zfownfsgnk32.3 %Hptvrw86.0-100.0The Counts Include [address] [facility] Physician GroupComment on above:Performed By: #### ABG ####Point of Care testing,ABG YBE005.4 mm[Hg]Off scale low35.0-45.0The Counts Include [address] [facility] Physician GroupComment on above:Performed By: #### ABG ####Point of Care testing,ABG JRHD9HiriseHlwFormerly [facility] Physician Group Comment on above:Performed By: #### ABG ####Point of Care testing,ABG PH7.43 Normal7.35-7.45The Counts Include [address] [facility] Physician GroupComment on above:Performed By: #### ABG ####Point of Care testing,ABG QH5642.2 mm[Hg]High80.0-100.0The Counts Include [address] [facility] Physician GroupComment on above:Performed By: #### ABG ####Point of Care testing,ABG TV450 mLNormalThe Counts Include [address] [facility] Physician GroupComment on above: Performed By: #### ABG ####Point of Care testing,CO2 [Moles/Vol]17.8 mmol/LLow 23.0-27.0The Counts Include [address] [facility] Physician GroupComment on above:Performed By: #### ABG ####Point of Care testing,HCO3 (Bld) [Moles/Vol]17.0 mmol/LLow23.0-29.0The Counts Include [address] [facility] Physician GroupComment on above:Performed By: #### ABG ####Point of Care testing,Respiratory CriticalMorton Plant North [facility] Hospital Physician GroupComment on above:Result Comment: Critical Value called on: 11/06/2024 at 00:03PERFORMED BY:[address] [address] [place] [place], [place] [phone] MEDICAL JACKELYN VÁZQUEZ M.D.Performed By: #### ABG ####Point of Care testing,Result Comment: Critical Value called on: 11/05/2024 at 17:13PERFORMED BY:[address] [address] [place], [place] [phone] MEDICAL JACKELYN VÁZQUEZ M.D.Set Respiratory Ivup59DztfqkTbr [place] Physician GroupComment on above: Performed By: #### ABG ####Point of Care testing,VBG Draw SiteArtAdventHealth Daytona Beach Physician [facility] HospitalComment on above:Performed By: #### ABG ####Point of Care testing,Ventilator ModeACMorton Plant North Bay Hospital Physician [facility] HospitalComment on above:Performed By: #### ABG ####Point of Care testing,Blood Cultureon 03-62-1817Pqwxsgos identified Cx Nom (Bld)NO GROWTH 5 DAYS PERFORMED BY: [facility] [address] [facility] K[facility] [place] [id number] PATHOLOGIST GLASS BREAKER CARLOS VÁZQUEZ M.D.NormalPhysicians Regional Medical Center [facility] Physician [facility] HospitalComment on above: Performed By: #### CUBLD ####[id number] USABacteria identified Cx Nom (Bld)[facility] Physician [facility] HospitalComment on above:Performed By: #### CUBLD ####[id number] USAComprehensive Metabolic Panel on 57-50-5152Uarhdfc [Mass/Vol]2.5 g/dLLow3.5-5.7The Counts Include [address] [facility] Physician Group Comment on above:Performed By: #### DIFF CBC, CMP, PT, LACTIC ####[address] USAAlbumin/Globulin [Mass ratio]1.3 {ratio}[facility] Physician [facility] HospitalComment on above: Performed By: #### DIFF CBC, CMP, PT, LACTIC ####[id number] USAPerformed By: #### CMP, DIFF CBC ####[id number] USAALP [Catalytic activity/Vol]190 U/CMxgb90-360Jym [place] Physician [facility] HospitalComment on above:Performed By: #### DIFF CBC, CMP, PT, LACTIC ####[address] USAALT [Catalytic activity/Vol] 1538 U/LHigh7-52The Counts Include [address] [facility] Physician [facility] HospitalComment on above:Performed By: #### DIFF CBC, CMP, PT, LACTIC ####[address] [place] [address] USAAnion gap [Moles/Vol]11.4 mmol/LNormal6.0-15.0The Counts Include [address] [facility] Physician GroupComment on above:Performed By: #### DIFF CBC, CMP, PT, LACTIC ####[address] [place] [address] [place] AST [Catalytic activity/Vol]2548 U/BEonw73-89Hgj Counts Include [address] [facility] Physician [facility] Comment on above:Performed By: #### DIFF CBC, CMP, PT, LACTIC ####[address] [place] [address] USABilirubin [Mass/Vol] 1.9 mg/dLHigh0.3-1.0The Counts Include [address] [facility] Physician GroupComment on above:Result Comment: Samples from patients who have taken Naproxen have shown spurious elevation in Total Bilirubin levels. A metabolite of Naproxen, O- desmethylnaproxen, has been shown to interfere with the Aminah-Mark method for measuring Total Bilirubin.Performed By: #### DIFF CBC, CMP, PT, LACTIC ####[address] [address] USACalcium [Mass/Vol]6.9 mg/dLLow8.6-10.3The Counts Include [address] [facility] Physician GroupComment on above: Performed By: #### DIFF CBC, CMP, PT, LACTIC ####[address] [address] USAChloride [Moles/Vol]117 mmol/LHigh 98-107The Counts Include [address] [facility] Physician GroupComment on above:Performed By: #### DIFF CBC, CMP, PT, LACTIC ####[address] [address] USACO2 [Moles/Vol]19.2 mmol/LLow21.0-31.0The Counts Include [address] [facility] Physician [facility] Comment on above:Performed By: #### DIFF CBC, CMP, PT, LACTIC ####[address] [address] USACreatinine [Mass/Vol] 1.42 mg/dLHigh0.60-1.20The Counts Include [address] [facility] Physician GroupComment on above:Performed By: #### DIFF CBC, CMP, PT, LACTIC ####[address] [address] USACreatinine Clr Calc Akolcznb18.74NoFormerly [facility] Physician GroupComment on above:Result Comment: PERFORMED BY:[address] ABHISHEKGaloRadhaHUI, [place] [phone] MEDICAL JACKELYN VÁZQUEZ M.D.Performed By: #### DIFF CBC, CMP, PT, LACTIC ####[address] [id number] [place] GFR/1.73 sq M.predicted MDRD (S/P/Bld) [Vol rate/Area]38.812 mL/min/{1.73_m2} NormalThe Counts Include [address] [facility] Physician GroupComment on above:Performed By: #### DIFF CBC, CMP, PT, LACTIC ####[address] USAGlobulin (S) [Mass/Vol]1.9 g/dLNoFormerly [facility] Physician [facility] Comment on above:Performed By: #### DIFF CBC, CMP, PT, LACTIC ####[address] USAGlucose [Mass/Vol]114 mg/wGOhur45-111Pof Counts Include [address] [facility] Physician GroupComment on above:Result Comment: Random Glucose Reference Range is dependent on time and content of last meal. Glucose of more than 200 mg/dL in a nonstressed, ambulatory subject supports the diagnosis of Diabetes Mellitus. ADA recommended reference rangePerformed By: #### DIFF CBC, CMP, PT, LACTIC ####[id number] USAPotassium [Moles/Vol]3.6 mmol/LNormal3.5-5.1The Counts Include [address] [facility] Physician GroupComment on above:Performed By: #### DIFF CBC, CMP, PT, LACTIC ####[address] [place] Protein [Mass/Vol]4.4 g/dLLow6.4-8.9The Counts Include [address] [facility] Physician [facility] HospitalComment on above:Performed By: #### DIFF CBC, CMP, PT, LACTIC ####[place] [address] USASodium [Moles/Vol]144 mmol/L Izvovl867-006Cgy [place] Physician [facility] HospitalComment on above:Performed By: #### DIFF CBC, CMP, PT, LACTIC ####[address] USAUrea nitrogen [Mass/Vol]31 mg/dLHigh7-25The Counts Include [address] [facility] Physician GroupComment on above:Performed By: #### DIFF CBC, CMP, PT, LACTIC ####[place] [address] [place] Albumin [Mass/Vol]2.9 g/dLLow3.5-5.7The Counts Include [address] [facility] Physician GroupComment on above:Performed By: #### CMP, DIFF CBC ####[place] [address] USAALP [Catalytic activity/Vol]184 U/JRspw45-873 The Counts Include [address] [facility] Physician GroupComment on above:Performed By: #### CMP, DIFF CBC ####[place] [address] USAALT [Catalytic activity/Vol]109 U/LHigh7-52[facility] Physician [facility] HospitalComment on above:Performed By: #### CMP, DIFF CBC ####[place] [address] USAAnion gap [Moles/Vol]15.1 mmol/LHigh6.0-15.0 The Counts Include [address] [facility] Physician [facility] HospitalComment on above:Performed By: #### CMP, DIFF CBC ####[place] [address] USAAST [Catalytic activity/Vol]168 U/XGvwo45-72Mat Counts Include [address] [facility] Physician GroupComment on above:Performed By: #### CMP, DIFF CBC ####[place] [address] USABilirubin [Mass/Vol]1.8 mg/dLHigh0.3-1.0The Counts Include [address] [facility] Physician GroupComment on above:Result Comment: Samples from patients who have taken Naproxen have shown spurious elevation in Total Bilirubin levels. A metabolite of Naproxen, O-desmethylnaproxen, has been shown to interfere with the Jenchandrakant-Mark method for measuring Total Bilirubin.Performed By: #### CMP, DIFF CBC ####[address] [address] USACalcium [Mass/Vol]7.7 mg/dLLow8.6-10.3The Counts Include [address] [facility] Physician Group Comment on above:Performed By: #### CMP, DIFF CBC ####[address] [address] USAChloride [Moles/Vol]114 mmol/LHigh 98-107The Counts Include [address] [facility] Physician [facility] HospitalComment on above:Performed By: #### CMP, DIFF CBC ####[address] [address] [place] CO2 [Moles/Vol]17.3 mmol/LLow21.0-31.0The Counts Include [address] [facility] Physician GroupComment on above:Performed By: #### CMP, DIFF CBC ####[address] [address] USACreatinine [Mass/Vol]1.28 mg/dLHigh0.60-1.20 The Counts Include [address] [facility] Physician GroupComment on above:Performed By: #### CMP, DIFF CBC ####[address] [address] [place] Creatinine Clr Calc Gkxkmudk32.54NormalThe Counts Include [address] [facility] Physician GroupComment on above:Result Comment: PERFORMED BY:[address] [place], [place] [phone] MEDICAL DIRECTORCARLOS VÁZQUEZ M.D.Performed By: #### CMP, DIFF CBC ####[address] [address] USAGFR/1.73 sq M.predicted MDRD (S/P/Bld) [Vol rate/Area]43.960 mL/min/{1.73_m2}NormalThe Counts Include [address] [facility] Physician GroupComment on above:Performed By: #### CMP, DIFF CBC ####[address] [address] USAGlobulin (S) [Mass/Vol]2.3 g/dLMorton Plant North Bay Hospital Physician GroupComment on above:Performed By: #### CMP, DIFF CBC ####[address] [address] USAGlucose [Mass/Vol]144 mg/zCImpc26-484Ndn Counts Include [address] [facility] Physician GroupComment on above: Result Comment: Random Glucose Reference Range is dependent on time and content of last meal. Glucose of more than 200 mg/dL in a nonstressed, ambulatory subject supports the diagnosis of Diabetes Mellitus. ADA recommended reference rangePerformed By: #### CMP, DIFF CBC ####[address] [address] USAPotassium [Moles/Vol]4.4 mmol/LNormal3.5-5.1 The Counts Include [address] [facility] Physician GroupComment on above:Performed By: #### CMP, DIFF CBC ####[address] [address] USAProtein [Mass/Vol]5.2 g/dLLow6.4-8.9The Counts Include [address] [facility] Physician GroupComment on above: Performed By: #### CMP, DIFF CBC ####[address] [address] USASodium [Moles/Vol]142 mmol/JMcekbz984-715Bgs Counts Include [address] [facility] Physician GroupComment on above:Performed By: #### CMP, DIFF CBC ####[address] [address] USAUrea nitrogen [Mass/Vol]28 mg/dLHigh7-25The Counts Include [address] [facility] Physician GroupComment on above:Performed By: #### CMP, DIFF CBC ####[address] [address] USADiff and CBCon 66-16-3619Vactoihizezb Ql (Bld) SlightNoFormerly [facility] Physician GroupComment on above:Performed By: #### DIFF CBC, CMP, PT, LACTIC ####[address] [address] USAPerformed By: #### CMP, DIFF CBC ####[place] [id number] USABand form neutrophils/100 WBC (Bld)5 %Normal0-5The Counts Include [address] [facility] Physician GroupComment on above:Performed By: #### DIFF CBC, CMP, PT, LACTIC ####[place] [id number] USAPerformed By: #### CMP, DIFF CBC ####[place] [address] [place] Dohle BodiesSlightNormalThe Counts Include [address] [facility] Physician GroupComment on above:Performed By: #### DIFF CBC, CMP, PT, LACTIC ####[place] [address] USAErythrocyte distribution width (RBC) [Ratio]16.8 % High11.9-15.3The Counts Include [address] [facility] Physician GroupComment on above:Performed By: #### DIFF CBC, CMP, PT, LACTIC ####[place] [address] USAHematocrit (Bld) [Volume fraction]30.2 %Low34.0-46.4 The Counts Include [address] [facility] Physician GroupComment on above:Performed By: #### DIFF CBC, CMP, PT, LACTIC ####[place] [address] USAHemoglobin (Bld) [Mass/Vol]10.1 g/dLLow11.8-15.4The Counts Include [address] [facility] Physician Group Comment on above:Performed By: #### DIFF CBC, CMP, PT, LACTIC ####[place] [address] USAHypochromasiaSlight NormalThe Counts Include [address] [facility] Physician GroupComment on above:Performed By: #### DIFF CBC, CMP, PT, LACTIC ####[place] [id number] USAPerformed By: #### CMP, DIFF CBC ####[place] [address] USALymphocytes/100 WBC (Bld)4 %Fxe07-25 The Counts Include [address] [facility] Physician GroupComment on above:Performed By: #### DIFF CBC, CMP, PT, LACTIC ####[place] [address] USAPerformed By: #### CMP, DIFF CBC ####[address] (RBC) [Entitic mass]27.8 hvYcdvhu71.7-34.3 The Counts Include [address] [facility] Physician GroupComment on above:Performed By: #### DIFF CBC, CMP, PT, LACTIC ####[address] (RBC) [Entitic vol]83.2 dAYqumts42-009Nru Counts Include [facility] Comment on above:Performed By: #### DIFF CBC, CMP, PT, LACTIC ####[place] [address] USAMean Corpuscular HGB Conc33.4 g/bUIjufoh26.0-35.0The Counts Include [facility] GroupComment on above: Performed By: #### DIFF CBC, CMP, PT, LACTIC ####[place] [address] USAMetamyelocytes1 %High0-0The Counts Include [facility] GroupComment on above:Performed By: #### DIFF CBC, CMP, PT, LACTIC ####[place] [address] [place] Monocytes/100 WBC (Bld)9 %Normal2-11The Counts Include [facility]ician GroupComment on above:Performed By: #### DIFF CBC, CMP, PT, LACTIC ####[place] [address] USAMyelocytes1 %High0-0The Counts Include [facility] GroupComment on above:Performed By: #### DIFF CBC, CMP, PT, LACTIC ####[place] [address] [place] Performed By: #### CMP, DIFF CBC ####[address] [address] USANucleated Red Blood Cell1 /100{WBC}High0-0The Counts Include [facility] GroupComment on above:Performed By: #### DIFF CBC, CMP, PT, LACTIC ####[address] [address] [facility] Performed By: #### CMP, DIFF CBC ####[address] [address] USAPlatelet EstimateNormalNormalNormLee Health Coconut Point Physician GroupComment on above:Performed By: #### DIFF CBC, CMP, PT, LACTIC ####[address] [address] [facility] Performed By: #### CMP, DIFF CBC ####[address] [address] USAPlatelet mean volume (Bld) [Entitic vol]8.6 fLNormal 6.3-10.7The Counts Include [facility]ician GroupComment on above:Performed By: #### DIFF CBC, CMP, PT, LACTIC ####[address] [address] USAPlatelet MorphologyNormalNormalMorton Plant North Bay Hospital Physician GroupComment on above:Result Comment: PERFORMED BY:[address] ABHISHEKGaloRadhaPLATTE CITY, [place] [phone] MEDICAL JACKELYN VÁZQUEZ M.D.Performed By: #### DIFF CBC, CMP, PT, LACTIC ####[address] [address] [facility] Performed By: #### CMP, DIFF CBC ####[address] [address] USAPlatelets (Bld) [#/Vol]208 10*3/eOSjmjng492-157Lsd Counts Include [address] [facility] GroupComment on above:Performed By: #### DIFF CBC, CMP, PT, LACTIC ####[address] [address] [place] RBC (Bld) [#/Vol]3.63 10*6/uLNormal3.60-5.00The Counts Include [address] [facility] GroupComment on above:Performed By: #### DIFF CBC, CMP, PT, LACTIC ####[place] [address] USASegmented neutrophils/100 WBC (Bld)80 %Ueao87-31Exe Counts Include [address] [facility]ician GroupComment on above:Performed By: #### DIFF CBC, CMP, PT, LACTIC ####[place] [address] USATarget CellsSlightMorton Plant North Bay Hospital Physician GroupComment on above:Performed By: #### DIFF CBC, CMP, PT, LACTIC ####[place] [address] USAToxic Vacuolation SlightMorton Plant North Bay Hospital Physician GroupComment on above:Performed By: #### DIFF CBC, CMP, PT, LACTIC ####[place] [address] USAPerformed By: #### CMP, DIFF CBC ####[place] [address] USAWBC (Bld) [#/Vol]9.1 10*3/uLNormal3.8-11.6The Counts Include [address] [facility]ician GroupComment on above:Performed By: #### DIFF CBC, CMP, PT, LACTIC ####[place] [address] USAWhite Blood Count9.1 [CFU]/mLNormal3.8-11.6The Counts Include [address] [facility]ician GroupComment on above:Performed By: #### DIFF CBC, CMP, PT, LACTIC ####[place] [address] [place] Dohle BodiesModerateMorton Plant North Bay Hospital Physician GroupComment on above: Performed By: #### CMP, DIFF CBC ####[place] [address] USAErythrocyte distribution width (RBC) [Ratio]17.3 % High11.9-15.3The Counts Include [address] [facility] GroupComment on above:Performed By: #### CMP, DIFF CBC ####[place] [address] USAHematocrit (Bld) [Volume fraction]33.6 %Low34.0-46.4The Counts Include [address] [facility]ician GroupComment on above:Performed By: #### CMP, DIFF CBC ####[place] [address] USAHemoglobin (Bld) [Mass/Vol]10.8 g/dLLow11.8-15.4The Counts Include [address] [facility]ician GroupComment on above: Performed By: #### CMP, DIFF CBC ####[place] [address] USAMCH (RBC) [Entitic mass]27.4 mbZaupdu11.7-34.3The Counts Include [address] [facility]ician GroupComment on above:Performed By: #### CMP, DIFF CBC ####[place] [address] USAMCV (RBC) [Entitic vol]85.8 qNBpoevc72-731Rcu Counts Include [address] [facility]ician GroupComment on above:Performed By: #### CMP, DIFF CBC ####[place] [address] USAMean Corpuscular HGB Conc32.0 g/dLNormal 32.0-35.0The Counts Include [address] [facility]ician GroupComment on above:Performed By: #### CMP, DIFF CBC ####[place] [address] USAMonocytes/100 WBC (Bld)6 %Normal2-11The Counts Include [address] [facility] GroupComment on above:Performed By: #### CMP, DIFF CBC ####[place] [address] USAOvalocytesSlightNormalThe Counts Include [address] [facility]ician GroupComment on above:Performed By: #### CMP, DIFF CBC ####[place] [address] USAPlatelet mean volume (Bld) [Entitic vol]8.7 fLNormal6.3-10.7The Counts Include [address] [facility] GroupComment on above: Result Comment: PERFORMED BY:[address] [place], [place] [phone] MEDICAL DIRECTORCARLOS VÁZQUEZ M.D.Performed By: #### CMP, DIFF CBC ####[address] [address] USAPlatelets (Bld) [#/Vol]272 10*3/uLNormal 150-450The Counts Include [address] [facility] GroupComment on above:Performed By: #### CMP, DIFF CBC ####[address] [address] USAPoikilocytosisSFirstHealth Physician GroupComment on above: Performed By: #### CMP, DIFF CBC ####[address] [address] USAPolychromasiaSFirstHealth Physician GroupComment on above:Performed By: #### CMP, DIFF CBC ####[address] [address] USARBC (Bld) [#/Vol]3.92 10*6/uL Normal3.60-5.00The Counts Include [address] [facility] GroupComment on above:Performed By: #### CMP, DIFF CBC ####[address] [address] USASchistocytesSFirstHealth Physician GroupComment on above: Performed By: #### CMP, DIFF CBC ####[address] [address] USASegmented neutrophils/100 WBC (Bld)85 %Bpll63-24Bvo Counts Include [address] [facility] GroupComment on above:Performed By: #### CMP, DIFF CBC ####[address] [address] USAToxic GranulationSFirstHealth Physician GroupComment on above:Performed By: #### CMP, DIFF CBC ####[address] [address] USAWBC (Bld) [#/Vol]11.0 10*3/uLNormal3.8-11.6The Counts Include [address] [facility] Physician [facility] HospitalComment on above:Performed By: #### CMP, DIFF CBC ####[facility] [place] [address] USAWhite Blood Count11.0 [CFU]/mLNormal3.8-11.6The Counts Include [address] [facility] Physician [facility] HospitalComment on above:Performed By: #### CMP, DIFF CBC ####[facility] [place] [address] USAECG 12 lead ECGon 14-09-4302NQB 12 lead ECG NormalPhysicians Regional Medical [facility] Physician [facility] HospitalGlucose Poct Glucometerson 42-82-0594Piektpm2 Glu2: Cleaned MeterNoParkview Health Bryan HospitalComment on above:Result Comment: PERFORMED BY:[address] [place], [place] [phone] MEDICAL JACKELYN VÁZQUEZ M.D.Performed By: #### GLULS ####Point of Care testing,Glucose [Mass/Vol]81 mg/dLMille Lacs Health System Onamia HospitalComment on above:Result Comment: Random Glucose Reference Range is dependent on time and content of last meal. Glucose of more than 200 mg/dL in a nonstressed, ambulatory subject supports the diagnosis of Diabetes Mellitus.Performed By: #### GLULS ####Point of Care testing,Lactic Acid on 33-99-4097Fchnegu [Moles/Vol]3.2 mmol/LOff scale high0.5-1.9The Counts Include [address] [facility] Physician [facility] HospitalComment on above:Result Comment: Critical Result : Called to and read back by: GIO TORRE at: 11/05/2024 13:00 by:MLG Lactic Acid reference range has been updated to 0.5 ? 1.9 mmol/L and the critical range of 2.0 or greater.PERFORMED BY:[address] [place], [place] [phone] MEDICAL JACKELYN VÁZQUEZ M.D.Performed By: #### DIFF CBC, CMP, PT, LACTIC ####[address] [place] [address] USALactic Acid Reflexon 52-68-0018Flmveq Acid Reflex2.0 mmol/LOff scale high0.5-1.9The Counts Include [address] [facility]ician GroupComment on above:Result Comment: Critical Result : Called to and read back by: ROXY RAYMOND at: 11/05/2024 16:42:19by:LFM Lactic Acid reference range has been updated to 0.5 ? 1.9 mmol/L and the critical range of 2.0 or greater.PERFORMED BY:[address] [address] [place], [place] [phone] MEDICAL DIRECTORCARLOS VÁZQUEZ M.D.Performed By: #### LACTIC RFX ####[address] [place], [place] [address]XARIuizngxavtv Time INR on 42-90-2758AYC Coag (PPP) [Relative time]1.4 {INR}NormalThe Counts Include [address] [facility] GroupComment on above:Result Comment: INR Therapeutic Range A) Pre- and Peroperative OAT started two weeks before surgery. NOT HIP SURGERY: 1.5 - 2.5 HIP SURGERY: 2 - 3 B) Primary and secondary prevention of venous THROMBOSIS: 2 - 3 C) Active venous thrombosis, pulmonary embolism and prevention of recurrent venous thrombosis: 2 - 3 D) Prevention of arterial thromboembolism including patients with mechanical heart valves: 3 - 4.5PERFORMED BY:[address] [address] [place], [place] [phone] MEDICAL JACKELYN VÁZQUEZ M.D.Performed By: #### DIFF CBC, CMP, PT, LACTIC ####[address] [place] [address] [place] PT Coag (PPP) [Time]15.4 sHigh9.0-12.9The Counts Include [address] [facility]ician GroupComment on above:Result Comment: A hematocrit value greater than 55% may lead to inaccurate results in coagulation testing. Patients having hematocrit values >55% require a special collection tube for coagulation studies. Please contact the laboratory at [phone] for redraw instructions.Performed By: #### DIFF CBC, CMP, PT, LACTIC ####[address] [address] [facility] XR abdomen 1Von 82-72-7125MK abdomen 1VNormalThe Counts Include [address] [facility] Physician [facility] Comprehensive Metabolic Panelon 00-39-6018Dcpyvnf [Mass/Vol]2.7 g/dLLow3.5-5.7 The Counts Include [address] [facility] GroupComment on above:Performed By: #### CMP, DIFF CBC ####[id number] [facility] Albumin/Globulin [Mass ratio]1.2 {ratio}NormalThe Counts Include [address] [facility] Physician [facility] Comment on above:Performed By: #### CMP, DIFF CBC ####[phone] USAALP [Catalytic activity/Vol]143 U/L Cyjb97-298Cai Counts Include [address] [facility] Physician [facility] HospitalComment on above:Performed By: #### CMP, DIFF CBC ####[id number] USAALT [Catalytic activity/Vol]12 U/LNormal7-52The Counts Include [address] [facility] Physician [facility] Comment on above:Performed By: #### CMP, DIFF CBC ####[id number] USAAnion gap [Moles/Vol]10.5 mmol/LNormal 6.0-15.0The Counts Include [address] [facility] GroupComment on above:Performed By: #### CMP, DIFF CBC ####[phone] USAAST [Catalytic activity/Vol]28 U/SJocqlt69-03Yea Counts Include [address] [facility]ician [facility] Comment on above:Performed By: #### CMP, DIFF CBC ####[id number] USABilirubin [Mass/Vol]0.6 mg/dLNormal 0.3-1.0The Counts Include [address] [facility] GroupComment on above:Performed By: #### CMP, DIFF CBC ####[phone] USACalcium [Mass/Vol]6.7 mg/dLLow8.6-10.3The Counts Include [address] [facility] GroupComment on above:Performed By: #### CMP, DIFF CBC ####[id number] USAChloride [Moles/Vol]113 mmol/PLctt08-478Yij Counts Include [address] [facility] Physician [facility] HospitalComment on above:Performed By: #### CMP, DIFF CBC ####[id number] USACO2 [Moles/Vol]18.7 mmol/LLow21.0-31.0The Counts Include [address] [facility] GroupComment on above: Performed By: #### CMP, DIFF CBC ####[phone] USACreatinine [Mass/Vol]1.15 mg/dLSignificant change down0.60-1.20The Counts Include [address] [facility] GroupComment on above:Performed By: #### CMP, DIFF CBC ####[id number] USACreatinine Clr Calc Nipenuwo77.63NoFormerly [facility] Comment on above:Result Comment: PERFORMED BY:[address] ABHISHEKGaloRadhaPLATTE CITY, [place] [phone] MEDICAL JACKELYN VÁZQUEZ M.D.Performed By: #### CMP, DIFF CBC ####[address] [address] USAGFR/1.73 sq M.predicted MDRD (S/P/Bld) [Vol rate/Area]49.989 mL/min/{1.73_m2}NormalThe Counts Include [address] [facility] GroupComment on above:Performed By: #### CMP, DIFF CBC ####[address] [address] [place] Globulin (S) [Mass/Vol]2.3 g/dLMorton Plant North Bay Hospital Physician [facility] HospitalComment on above:Performed By: #### CMP, DIFF CBC ####[id number] USAGlucose [Mass/Vol]135 mg/oZWzok70-672Bpd Counts Include [address] [facility] GroupComment on above:Result Comment: Random Glucose Reference Range is dependent on time and content of last meal. Glucose of more than 200 mg/dL in a nonstressed, ambulatory subject supports the diagnosis of Diabetes Mellitus. ADA recommended reference rangePerformed By: #### CMP, DIFF CBC ####[address] [address] [place] Potassium [Moles/Vol]3.2 mmol/LLow3.5-5.1The Counts Include [address] [facility] GroupComment on above:Performed By: #### CMP, DIFF CBC ####[address] [address] USAProtein [Mass/Vol]5.0 g/dLLow6.4-8.9The Counts Include [address] [facility] GroupComment on above:Performed By: #### CMP, DIFF CBC ####[address] [address] USASodium [Moles/Vol]139 mmol/HMydgjf132-121Seq Counts Include [address] [facility] GroupComment on above: Performed By: #### CMP, DIFF CBC ####[address] [address] USAUrea nitrogen [Mass/Vol]27 mg/dLSignificant change down7-25The Counts Include [address] [facility] GroupComment on above:Performed By: #### CMP, DIFF CBC ####[address] [address] USADiff and CBCon 44-73-7048Vnsoesfgeaif Ql (Bld)SlightNoFormerly [facility] Physician GroupComment on above:Performed By: #### CMP, DIFF CBC ####[address] [address] USABand form neutrophils/100 WBC (Bld)25 %High0-5The Counts Include [address] [facility] GroupComment on above:Performed By: #### CMP, DIFF CBC ####[address] [address] USACrenated RBCSlightNoFormerly [facility] Physician GroupComment on above:Performed By: #### CMP, DIFF CBC ####[address] [address] USADohle BodiesSlight NormalPhysicians [facility] Physician GroupComment on above:Performed By: #### CMP, DIFF CBC ####[address] [address] [facility] Erythrocyte distribution width (RBC) [Ratio]17.1 %High11.9-15.3The Counts Include [address] [facility] GroupComment on above:Performed By: #### CMP, DIFF CBC ####[place] [address] USAHematocrit (Bld) [Volume fraction]32.6 %Low34.0-46.4The Counts Include [address] [facility] GroupComment on above:Performed By: #### CMP, DIFF CBC ####[place] [address] USAHemoglobin (Bld) [Mass/Vol]10.8 g/dLLow 11.8-15.4The Counts Include [address] [facility] GroupComment on above:Performed By: #### CMP, DIFF CBC ####[phone] USAHypochromasiaSlightNormalThe Counts Include [address] [facility]ician GroupComment on above: Performed By: #### CMP, DIFF CBC ####[phone] USALymphocytes/100 WBC (Bld)2 %Zcj76-55Iss Counts Include [address] [facility] GroupComment on above:Performed By: #### CMP, DIFF CBC ####[address] [address] USAMCH (RBC) [Entitic mass]27.5 diCkckyo08.7-34.3The Counts Include [address] [facility] GroupComment on above: Performed By: #### CMP, DIFF CBC ####[address] [address] USAMCV (RBC) [Entitic vol]83.3 iQBhdomx96-908Nzf Counts Include [address] [facility] GroupComment on above:Performed By: #### CMP, DIFF CBC ####[phone] USAMean Corpuscular HGB Conc33.0 g/uSGhmbjz71.0-35.0The Counts Include [address] [facility] Physician [facility] HospitalComment on above:Performed By: #### CMP, DIFF CBC ####[phone] USAMetamyelocytes1 %High0-0The Counts Include [address] [facility] Physician [facility] HospitalComment on above:Performed By: #### CMP, DIFF CBC ####[phone] USAMonocytes/100 WBC (Bld)11 %Normal2-11The Counts Include [address] [facility] Physician [facility] HospitalComment on above:Performed By: #### CMP, DIFF CBC ####[phone] USAOvalocytesSlightNoFormerly [facility] Physician GroupComment on above: Performed By: #### CMP, DIFF CBC ####[phone] USAPlatelet EstimateNormalNormalNormLee Health [facility]ut [facility] Physician [facility] HospitalComment on above:Performed By: #### CMP, DIFF CBC ####[phone] USAPlatelet mean volume (Bld) [Entitic vol]8.5 fLNormal6.3-10.7The Counts Include [address] [facility] Physician [facility] HospitalComment on above:Performed By: #### CMP, DIFF CBC ####[phone] USAPlatelet MorphologyNormalNormalNoFormerly [facility] Physician [facility] HospitalComment on above:Result Comment: PERFORMED BY:[address] [place], [place] [phone] MEDICAL DIRECTORCARLOS VÁZQUEZ M.D.Performed By: #### CMP, DIFF CBC ####[place] [address] [place] Platelets (Bld) [#/Vol]297 10*3/bVVqdyiq406-846Ldn Counts Include [address] [facility] Comment on above:Performed By: #### CMP, DIFF CBC ####[address] [address] USAPoikilocytosisSlightNormLee Health Coconut Point Physician GroupComment on above:Performed By: #### CMP, DIFF CBC ####[address] [address] [place] PolychromasiaSFirstHealth Physician GroupComment on above:Performed By: #### CMP, DIFF CBC ####[address] [address] USAPromyelocytes1 %High0-0The Counts Include [address] [facility] Comment on above:Performed By: #### CMP, DIFF CBC ####[address] [address] USARBC (Bld) [#/Vol]3.91 10*6/uLNormal 3.60-5.00The Counts Include [address] [facility] Physician GroupComment on above:Performed By: #### CMP, DIFF CBC ####[address] [address] USASegmented neutrophils/100 WBC (Bld)60 %Xfjuhm05-31Clx Counts Include [address] [facility] Physician GroupComment on above:Performed By: #### CMP, DIFF CBC ####[address] [address] USAToxic VacuolationSlightNormal [facility] Physician [facility] HospitalComment on above:Performed By: #### CMP, DIFF CBC ####[address] [address] USAWBC (Bld) [#/Vol]13.2 10*3/uLHigh3.8-11.6The Counts Include [address] [facility] Physician GroupComment on above:Performed By: #### CMP, DIFF CBC ####[address] [address] USAWhite Blood Count13.2 [CFU]/mLHigh3.8-11.6The Counts Include [address] [facility] Physician GroupComment on above:Performed By: #### CMP, DIFF CBC ####[id number] USAGlucose Poct Glucometerson 71-53-6496Wxxbyfk6Fpb3: Cleaned MeterNoParkview Health Bryan HospitalComment on above:Result Comment: PERFORMED BY:[address] [address] [place] [place], [place] [phone] MEDICAL JACKELYN VÁZQUEZ M.D.Performed By: #### GLULS ####Point of Care testing, Glucose [Mass/Vol]108 mg/dLMorton Plant North Bay Hospital Physician [facility] HospitalComment on above: Result Comment: Random Glucose Reference Range is dependent on time and content of last meal. Glucose of more than 200 mg/dL in a nonstressed, ambulatory subject supports the diagnosis of Diabetes Mellitus.Performed By: #### GLULS ####Point of Care testing,Vancomycin,Randomon 63-10-0250Brjxiogqam,Vubqts07.3 Normal5.0-20.0The Counts Include [address] [facility] Physician GroupComment on above:Order Comment: Date of last dose?: [id number] Time of last dose?: Comment: Last dose: - PERFORMED BY:[address] [address] [place], [place] [phone] MEDICAL JACKELYN VÁZQUEZ M.D.Performed By: #### VANCR ####[address] [address] USAAerobic Cultureon 69-09-0447Jtcwsxt CultureNoParkview Health Bryan HospitalComment on above:Performed By: #### GS, AERC ####[address] [address] USAComprehensive Metabolic Panelon 52-80-9426Vjhgwfk [Mass/Vol]2.7 g/dLLow3.5-5.7The Counts Include [address] [facility] Physician [facility] Comment on above:Performed By: #### PHOS, CMP, DIFF CBC, MG, CALLIE ####[phone] USAAlbumin/Globulin [Mass ratio]1.2 {ratio}NormalThe Counts Include [address] [facility] Physician [facility] HospitalComment on above: Performed By: #### PHOS, CMP, DIFF CBC, MG, CALLIE ####[place] [address] USAALP [Catalytic activity/Vol]166 U/L Wcvy41-570Mkx Counts Include [address] [facility] Physician GroupComment on above:Performed By: #### PHOS, CMP, DIFF CBC, MG, CALLIE ####[place] [address] USAALT [Catalytic activity/Vol]13 U/LNormal7-52The Counts Include [address] [facility] Physician GroupComment on above:Performed By: #### PHOS, CMP, DIFF CBC, MG, CALLIE ####[place] [address] USAAnion gap [Moles/Vol]12.4 mmol/LNormal6.0-15.0The Counts Include [address] [facility] Physician GroupComment on above:Performed By: #### PHOS, CMP, DIFF CBC, MG, CALLIE ####[place] [address] USAAST [Catalytic activity/Vol]28 U/QZcpeks38-24Dmg Counts Include [address] [facility] Physician GroupComment on above:Performed By: #### PHOS, CMP, DIFF CBC, MG, CALLIE ####[place] [address] USABilirubin [Mass/Vol]0.5 mg/dLNormal0.3-1.0The Counts Include [address] [facility] Physician GroupComment on above:Performed By: #### PHOS, CMP, DIFF CBC, MG, CALLIE ####[place] [address] USACalcium [Mass/Vol]7.0 mg/dLSignificant change down8.6-10.3The Counts Include [address] [facility] Physician GroupComment on above:Performed By: #### PHOS, CMP, DIFF CBC, MG, CALLIE ####[place] [address] [place] Chloride [Moles/Vol]111 mmol/NFgsk52-935Kez Counts Include [address] [facility] Physician GroupComment on above:Performed By: #### PHOS, CMP, DIFF CBC, MG, CALLIE ####[place] [address] USACO2 [Moles/Vol]20.2 mmol/LLow 21.0-31.0The Counts Include [address] At [facility] Physician GroupComment on above:Performed By: #### PHOS, CMP, DIFF CBC, MG, CALLIE ####[place] [address] USACreatinine [Mass/Vol]2.08 mg/dLSignificant change down 0.60-1.20The Counts Include 234 Beds At [facility] Physician GroupComment on above:Performed By: #### PHOS, CMP, DIFF CBC, MG, CALLIE ####[place] [address] USACreatinine Clr Calc Bbxslmrz84.39NoFormerly [facility] Physician GroupComment on above:Performed By: #### PHOS, CMP, DIFF CBC, MG, CALLIE ####[address] GFR/1.73 sq M.predicted MDRD (S/P/Bld) [Vol rate/Area]24.549 mL/min/{1.73_m2} NormalThe Counts Include 234 Beds At The [facility] Physician GroupComment on above:Performed By: #### PHOS, CMP, DIFF CBC, MG, CALLIE ####[place] [address] USAGlobulin (S) [Mass/Vol]2.2 g/dLNoFormerly [facility] Physician GroupComment on above:Performed By: #### PHOS, CMP, DIFF CBC, MG, CALLIE ####[place] [address] [place] Glucose [Mass/Vol]143 mg/uLJstg32-241Ouo Counts Include 234 Beds At The [facility] Physician GroupComment on above:Result Comment: Random Glucose Reference Range is dependent on time and content of last meal. Glucose of more than 200 mg/dL in a nonstressed, ambulatory subject supports the diagnosis of Diabetes Mellitus. ADA recommended reference rangePerformed By: #### PHOS, CMP, DIFF CBC, MG, CALLIE ####[place] [address] USAPotassium [Moles/Vol] 3.6 mmol/LSignificant change down3.5-5.1The Counts Include 234 Beds At The [facility] Physician GroupComment on above:Performed By: #### PHOS, CMP, DIFF CBC, MG, CALLIE ####[place] [address] USAProtein [Mass/Vol]4.9 g/dLLow 6.4-8.9The Counts Include 234 Beds At The [facility] Physician GroupComment on above:Performed By: #### PHOS, CMP, DIFF CBC, MG, CALLIE ####[place] [address] USASodium [Moles/Vol]140 mmol/LSignificant change wopj953-772 The Counts Include 234 Beds At The [facility] Physician GroupComment on above:Performed By: #### PHOS, CMP, DIFF CBC, MG, CALLIE ####[place] [address] USAUrea nitrogen [Mass/Vol]63 mg/dLHigh7-25The Counts Include 234 Beds At [facility] Comment on above:Performed By: #### PHOS, CMP, DIFF CBC, MG, CALLIE ####[place] [address] USACortisolon 11-03-2024 Sqgtldca77.6 ug/dLNormalThe Counts Include 234 Beds At [facility] Physician [facility] HospitalComment on above:Result Comment: Reference range: AM 6 - 24 ug/dl PM <10 ug/dl Counts Include 234 Beds At [facility] Laboratory turner machine operator and method: [employer] UNICEL DXI, POLYCLONAL ANTIBODY CORTISOL ASSAY.PERFORMED BY:[address] [phone] MEDICAL JACKELYN VÁZQUEZ M.D.Performed By: #### PHOS, CMP, DIFF CBC, MG, CALLIE ####[place] [id number] USADiff and CBCon 78-23-6092Uceohlnavziq Ql (Bld)Slight NormalThe Counts Include 234 Beds At The [facility] Physician GroupComment on above:Performed By: #### PHOS, CMP, DIFF CBC, MG, CALLIE ####[place] [id number] USABand form neutrophils/100 WBC (Bld)28 %High0-5The Counts Include 234 Beds At The [facility] Physician GroupComment on above:Performed By: #### PHOS, CMP, DIFF CBC, MG, CALLIE ####[place] [address] USACrenated RBCSFirstHealth Physician GroupComment on above: Performed By: #### PHOS, CMP, DIFF CBC, MG, CALLIE ####[place] [address] USADohle BodiesSFirstHealth Physician GroupComment on above:Performed By: #### PHOS, CMP, DIFF CBC, MG, CALLIE ####[address] Erythrocyte distribution width (RBC) [Ratio]17.0 %High11.9-15.3The Counts Include 234 Beds At The [facility] Physician GroupComment on above:Performed By: #### PHOS, CMP, DIFF CBC, MG, CALLIE ####[address] Hematocrit (Bld) [Volume fraction]34.2 %Adecou84.0-46.4The Counts Include 234 Beds At The [facility] Physician GroupComment on above:Performed By: #### PHOS, CMP, DIFF CBC, MG, CALLIE ####[address] Hemoglobin (Bld) [Mass/Vol]11.1 g/dLLow11.8-15.4The Counts Include 234 Beds At [facility] Comment on above:Performed By: #### PHOS, CMP, DIFF CBC, MG, CALLIE ####[place] [address] USALymphocytes/100 WBC (Bld)5 %Cna17-74Uhl Counts Include 234 Beds At The [facility] Physician GroupComment on above:Performed By: #### PHOS, CMP, DIFF CBC, MG, CALLIE ####[place] [address] USAMCH (RBC) [Entitic mass]27.6 jxYbvkrq51.7-34.3The Counts Include 234 Beds At The [facility] Physician GroupComment on above:Performed By: #### PHOS, CMP, DIFF CBC, MG, CALLIE ####[address] [address] USAMCV (RBC) [Entitic vol]84.8 yERmlezd36-397Tws Counts Include 234 Beds At [facility] Comment on above:Performed By: #### PHOS, CMP, DIFF CBC, MG, CALLIE ####[address] [address] USAMean Corpuscular HGB Conc32.6 g/lFBqvhzk25.0-35.0The Counts Include 234 Beds At The [facility] Physician GroupComment on above: Performed By: #### PHOS, CMP, DIFF CBC, MG, CALLIE ####[place] [id number] USAMetamyelocytes4 %High0-0The Counts Include 234 Beds At The [facility] Physician GroupComment on above:Performed By: #### PHOS, CMP, DIFF CBC, MG, CALLIE ####[place] [address] [place] Monocytes/100 WBC (Bld)5 %Normal2-11The Counts Include 234 Beds At The [facility] Physician GroupComment on above:Performed By: #### PHOS, CMP, DIFF CBC, MG, CALLIE ####[place] [address] USAPlatelet EstimateNormalNormal NormalThe Counts Include 234 Beds At The [facility] Physician GroupComment on above:Performed By: #### PHOS, CMP, DIFF CBC, MG, CALLIE ####[place] [address] USAPlatelet mean volume (Bld) [Entitic vol]8.3 fLNormal 6.3-10.7The Counts Include 234 Beds At The [facility] Physician GroupComment on above:Result Comment: PERFORMED BY:[address] [place], [place] [phone] MEDICAL DIRECTORCARLOS VÁZQUEZ M.D.Performed By: #### PHOS, CMP, DIFF CBC, MG, CALLIE ####[place] [address] USAPlatelet MorphologyNormalNormalNormalThe Counts Include 234 Beds At The [facility] Physician GroupComment on above:Result Comment: PERFORMED BY:[address] [phone] MEDICAL DIRECTORCARLOS VÁZQUEZ M.D.Performed By: #### PHOS, CMP, DIFF CBC, MG, CALLIE ####[address] [address] [place] Platelets (Bld) [#/Vol]312 10*3/dFVjdxsr116-599Lpo Counts Include 234 Beds At [facility] Comment on above:Performed By: #### PHOS, CMP, DIFF CBC, MG, CALLIE ####[address] [address] USAPoikilocytosisSlight NormalThe Counts Include 234 Beds At The [facility] Physician GroupComment on above:Performed By: #### PHOS, CMP, DIFF CBC, MG, CALLIE ####[address] [address] USARBC (Bld) [#/Vol]4.03 10*6/uLNormal3.60-5.00The Counts Include 234 Beds At The [facility] Physician GroupComment on above:Performed By: #### PHOS, CMP, DIFF CBC, MG, CALLIE ####[address] [address] [place] Segmented neutrophils/100 WBC (Bld)58 %Ukvlua30-22Glk Counts Include 234 Beds At [facility] Comment on above:Performed By: #### PHOS, CMP, DIFF CBC, MG, CALLIE ####[address] [address] USAToxic Vacuolation SlightNormalThe Counts Include 234 Beds At The [facility] Physician GroupComment on above:Performed By: #### PHOS, CMP, DIFF CBC, MG, CALLIE ####[address] [address] USAWBC (Bld) [#/Vol]12.1 10*3/uLHigh3.8-11.6The Counts Include 234 Beds At The [facility] Physician GroupComment on above:Performed By: #### PHOS, CMP, DIFF CBC, MG, CALLIE ####[address] [address] USAWhite Blood Count12.1 [CFU]/mLHigh3.8-11.6The Counts Include 234 Beds At [facility] Comment on above:Performed By: #### PHOS, CMP, DIFF CBC, MG, CALLIE ####[address] [address] USAGram Stainon 97-92-1721Nimbcedgfmr observation Gram stain Nom (Unsp spec)Gram Stain Result 2+ White Blood Cells Rare Epithelial Cells Rare Gram Positive Cocci PERFORMED BY: [facility] [address] [place] [address] PATHOLOGIST GLASS BREAKER CARLOS VÁZQUEZ M.D.NormalThe Counts Include 234 Beds At The [facility] Physician GroupComment on above: Performed By: #### GS, AERC ####[address] [address] USAMagnesiumon 46-82-7076Lrqoolwku [Mass/Vol]1.9 mg/dL Normal1.9-2.7The Counts Include 234 Beds At The [facility] Physician GroupComment on above:Result Comment: PERFORMED BY:[address] [place], [place] [phone] MEDICAL JACKELYN VÁZQUEZ M.D.Performed By: #### PHOS, CMP, DIFF CBC, MG, CALLIE ####[address] [address] USAPhosphoruson 92-98-0755Uzzbjazno [Mass/Vol]3.8 mg/dL Normal2.5-4.5The Counts Include 234 Beds At The [facility] Physician GroupComment on above:Performed By: #### PHOS, CMP, DIFF CBC, MG, CALLIE ####[address] [address] USAVancomycin,Randomon 63-26-6328Yokzrbwwbm,Random8.9 Normal5.0-20.0The Counts Include 234 Beds At The [facility] Physician GroupComment on above:Order Comment: Date of last dose?: [id number] Time of last dose?: 1599Result Comment: Last dose: - PERFORMED BY:[address] [place], [place] [phone] MEDICAL JACKELYN VÁZQUEZ M.D.Performed By: #### VANCR ####[address] [place] [address] USAXR chest 1V portableon 46-75-7241TD chest 1V portableMorton Plant North Bay Hospital Physician GroupAlanine aminotransferase [Enzymatic activity/volume] in Serum or PlasmaOrdered By: Regina Garcia on 37-64-9748JCM [Catalytic activity/Vol]17 U/LNormal7-52[facility] HospitalComment on above:Performed By: #### PT, DIFF CBC, PTT, TSH3, CMP, CK, HS TROP, CBC, LIPASE ####[place] [address] [place] [address] USAAlbumin [Mass/volume] in Serum or Plasma by Bromocresol green (BCG) dye binding methoOrdered By: Regina Garcia on 20-08-1592Vkfrdof BCG dye [Mass/Vol]3.5 g/dL3.5-5.7FCleveland Clinic Medina HospitalAlkaline phosphatase [Enzymatic activity/volume] in Serum or PlasmaOrdered By: Regina Garcia on 56-56-9120KCT [Catalytic activity/Vol] 243 U/ZRevs35-463IxhytirrnHolmes County Joel Pomerene Memorial HospitalComment on above:Performed By: #### PT, DIFF CBC, PTT, TSH3, CMP, CK, HS TROP, CBC, LIPASE ####[place] [address] [place] [address] USAAmmonia [Moles/volume] in PlasmaOrdered By: Regina Garcia on 65-49-0274Ccbklie (P) [Moles/Vol]28 umol/INefbea55-68KcqddmgyrHolmes County Joel Pomerene Memorial HospitalComment on above:Result Comment: PERFORMED BY:[address] [place], [place] [phone] MEDICAL JACKELYN VÁZQUEZ M.D.Performed By: #### LACTIC, ETOH, AMM ####[address] [address] USAAmphetamine Screen Ql (U)Ordered By: Regina Garcia on 80-23-9560Ezkofklykjcj Ql (U)NegativeNegativeHolmes County Joel Pomerene Memorial HospitalAnisocytosis [Presence] in Blood by Light microscopyOrdered By: Regina Garcia on 49-31-7363Dmjgloyyeryk Ql (Bld)SlightNormalHolmes County Joel Pomerene Memorial HospitalComment on above:Performed By: #### PT, DIFF CBC, PTT, TSH3, CMP, CK, HS TROP, CBC, LIPASE ####[facility] [address] [place] [address] USAAppearance of UrineOrdered By: Regina Garcia on 36-38-1319Auyaiehejq (U)CloudyCritically abnormalCleOhio Valley Surgical HospitalComment on above:Order Comment: Name Collection Type:: Pandya Catheter Performed By: #### ADDONUAPLUS, URDS ####[facility] [place] [id number] USAArterial Blood Gason 55-43-3724HJA Base Excess -8.5 mmol/LLow-3.0-3.0The Counts Include 234 Beds At The [facility] Physician GroupComment on above:Performed By: #### ABG ####Point of Care testing,ABG Frac Inspired O2100%NormalThe Counts Include 234 Beds At The [facility] Physician GroupComment on above:Performed By: #### ABG ####Point of Care testing,ABG Oxygen Content8.0 mmol/LNormal6.6-9.7[facility] GroupComment on above:Performed By: #### ABG ####Point of Care testing,ABG Oxygen Daxlfledhi49.9 %Ebuxxx33.0-100.0[facility] GroupComment on above:Performed By: #### ABG ####Point of Care testing,ABG WUZ191.6 mm[Hg]Low 35.0-45.0The Counts Include 234 Beds At The [facility] Physician GroupComment on above:Performed By: #### ABG ####Point of Care testing,ABG PH7.32Low7.35-7.45The [facility] Comment on above:Performed By: #### ABG ####Point of Care testing,ABG YM1281.9 mm[Hg]Off scale high80.0-100.0The Counts Include 234 Beds At The [facility] Physician GroupComment on above: Performed By: #### ABG ####Point of Care testing,CO2 [Moles/Vol]17.8 mmol/LLow 23.0-27.0The Counts Include 234 Beds At The [facility] Physician GroupComment on above:Performed By: #### ABG ####Point of Care testing,HCO3 (Bld) [Moles/Vol]16.7 mmol/LLow23.0-29.0The Counts Include 234 Beds At [facility] Physician [facility] HospitalComment on above:Performed By: #### ABG ####Point of Care testing,Respiratory CriticalMorton Plant North Bay Hospital Physician [facility] Memorial HospitalComment on above:Result Comment: Critical Value called on: 11/02/2024 at 22:41PERFORMED BY:[address] [place], [place] [phone] MEDICAL DIRECTORCARLOS VÁZQUEZ M.D.Performed By: #### ABG ####Point of Care testing,VBG Draw SiteLeft [facility] Physician [facility] HospitalComment on above:Performed By: #### ABG ####Point of Care testing,Aspartate aminotransferase [Enzymatic activity/volume] in Serum or PlasmaOrdered By: Regina Garcia on 17-66-1686ZNL [Catalytic activity/Vol]41 U/UIwpc65-71YvnaifwrjHolmes County Joel Pomerene Memorial HospitalComment on above:Performed By: #### PT, DIFF CBC, PTT, TSH3, CMP, CK, HS TROP, CBC, LIPASE ####[facility] [address] [place] [address] USABacteria [Presence] in Urine by AutomatedOrdered By: Regina Garcia on 31-48-5942Ztaalezf Auto Ql (U)None seen [HPF]None SeenHolmes County Joel Pomerene Memorial HospitalBand form neutrophils/100 leukocytes in Blood by Manual countOrdered By: Regina Garcia on 15-44-2254Lnvg form neutrophils/100 WBC (Bld)24 %High[address] Comment on above:Performed By: #### PT, DIFF CBC, PTT, TSH3, CMP, CK, HS TROP, CBC, LIPASE ####[address] [address] USABarbiturates [Presence] in Urine by Screen methodOrdered By: Regina Garcia on 53-41-0964Iwdvxjughelk Screen Ql (U)NegativeNegBethesda North HospitalBasophils Auto (Bld) [#/Vol]Ordered By: Regina Garcia on 98-13-5664Ozqcihjop (Bld) [#/Vol]N/[facility] Basophils/100 WBC Auto (Bld)Ordered By: Regina Garcia on 11-02-2024 Basophils/100 WBC (Bld)N/[facility] Memorial HospitalBenzodiazepines Screen Ql (U)Ordered By: Regina Garcia on 99-39-4950Wbmzafmvydxjaiw Ql (U) NegativeNegBethesda North HospitalBenzoylecgonine [Presence] in Urine by Screen methodOrdered By: Regina Garcia on 85-56-9136Uigakbbmxdokuig Screen Ql (U)NegativeNegBethesda North HospitalBilirubin Test strip Ql (U)Ordered By: Regina Garcia on 93-39-8814Wbhephufh Ql (U)Negative [facility] NorthBilirubin.total [Mass/volume] in Serum or PlasmaOrdered By: Regina Garcia on 74-68-1790Kcgtesfvx [Mass/Vol]0.7 mg/dL Normal0.3-1.0[facility] HospitalComment on above:Performed By: #### PT, DIFF CBC, PTT, TSH3, CMP, CK, HS TROP, CBC, LIPASE ####[facility] [address] [place] [address] USABlood Cultureon 59-22-3613Dogbhdxv identified Cx Nom (Bld)JAYA Mccord notified AB 1508 NO GROWTH 5 DAYS PERFORMED BY: [facility] [address] [place] [address] PATHOLOGIST GLASS BREAKER CARLOS VÁZQUEZ M.D.NormalThe Counts Include 234 Beds At The [facility] Physician GroupComment on above: Performed By: #### CUBLD ####[facility] [address] [place] [address] USABacteria identified Cx Nom (Bld)JAYA Mccord notified AB 1508 NO GROWTH 5 DAYS PERFORMED BY: [facility] [address] [place] [address] PATHOLOGIST GLASS BREAKER CARLOS VÁZQUEZ M.D.[facility] Physician GroupComment on above: Performed By: #### CUBLD ####[place] [address] USABlood carbon dioxide, total measurement by calculation (moles/volume)Ordered By: Regina Garcia on 96-26-5309PZ9 Calc (Bld) [Moles/Vol]20 mmol/WFhe72-77VaazktjslHolmes County Joel Pomerene Memorial HospitalBlood hemoglobin measurement by calculation (mass/volume)Ordered By: Regina Garcia on 82-45-9370Yixvhmyswk (Bld) [Mass/Vol]15.3 g/lGRaaaxj90.0-17.0[facility] HospitalComment on above:Performed By: #### ERBMP ####[place] [address] USABlood urea nitrogen (BUN) measurement in whole blood (mass/volume)Ordered By: Regina Garcia on 79-53-3271Qbkl nitrogen [Mass/Vol]72 mg/dLHigh8-26[facility] HospitalComment on above:Performed By: #### ERBMP ####[place] [address] USACT abdomen pelvis wo conon 11-02-2024 CT abdomen pelvis wo conNCritical access hospital Physician [facility] Memorial HospitalCT head/brain wo con on 09-17-6357VA head/brain wo [facility] CenterCalcium [Mass/volume] in Serum or PlasmaOrdered By: Regina Garcia on 72-34-8594Wizucwp [Mass/Vol]9.1 mg/dLNormal8.6-10.3FCleveland Clinic Medina HospitalComment on above:Performed By: #### PT, DIFF CBC, PTT, TSH3, CMP, CK, HS TROP, CBC, LIPASE ####[place] [id number] [place] Cannabinoids [Presence] in Urine by Screen methodOrdered By: Regina Garcia on 16-95-6440Lklpsgtvxfhb Screen Ql (U)NegativeNegativeHolmes County Joel Pomerene Memorial HospitalComment on above:These are unconfirmed results and should not be used for legal purposes. Drug Cut-Off Concentration: AMPH 1000 ng/mL VIRGILIO 200 ng/mL OSCAR 200 ng/mL COCM 300 ng/mL OP 300 ng/mL PCP 25 ng/mL THC 20 ng/mLCapillary blood glucose measurement by glucometer (mass/volume)Ordered By: Regina Garcia on 74-30-8230Leamube [Mass/Vol]121 mg/cUItbi46-441YrdbuevsjHolmes County Joel Pomerene [facility] Hospital Comment on above:Result Comment: PERFORMED BY:[place] [place], [place] [phone] MEDICAL DIRECTORCARLOS VÁZQUEZ M.D.Performed By: #### ERBMP ####[address] [address] USAGlucose [Mass/Vol]110 mg/dL NormalHolmes County Joel Pomerene Memorial HospitalComment on above:Random Glucose Reference Range is dependent on time and content of last meal. Glucose of more than 200 mg/dL in a nonstressed, ambulatory subject supports the diagnosis of Diabetes Mellitus.Result Comment: Random Glucose Reference Range is dependent on time and content of last meal. Glucose of more than 200 mg/dL in a nonstressed, ambulatory subject supports the diagnosis of Diabetes Mellitus.Performed By: #### GLULS ####Point of Care testing,Carbon dioxide, total [Moles/volume] in Serum or PlasmaOrdered By: Regina Garcia on 26-56-7656VN7 [Moles/Vol]17.7 mmol/LLow21.0-31.0[facility] HospitalComment on above:Performed By: #### PT, DIFF CBC, PTT, TSH3, CMP, CK, HS TROP, CBC, LIPASE ####[place] [place] [address] USAChloride [Moles/volume] in Serum or PlasmaOrdered By: Regina Garcia on 11-02-2024 Chloride [Moles/Vol]102 mmol/GBkvwgf35-036PaeecdiuhHolmes County Joel Pomerene Memorial Hospital Comment on above:Performed By: #### PT, DIFF CBC, PTT, TSH3, CMP, CK, HS TROP, CBC, LIPASE ####[address] [address] USAColor of Urine by AutoOrdered By: Regina Garcia on 57-94-9744Rcdbw (U)[facility] Hospital of ColumbusComment on above:Order Comment: Name Collection Type:: Pandya CatheterPerformed By: #### BELKISUAPLUS, URDS ####[place] [id number] [facility] Complete Blood Count Auto Diffon 50-33-6281Fhml Corpuscular HGB Conc33.0 g/dL Wtebis21.0-35.0The Counts Include 234 Beds At [facility] Physician GroupComment on above:Performed By: #### PT, DIFF CBC, PTT, TSH3, CMP, CK, HS TROP, CBC, LIPASE ####[place] [address] USAWhite Blood Count9.1 [CFU]/mL Normal3.8-11.6The Counts Include 234 Beds At [facility] Physician GroupComment on above:Performed By: #### PT, DIFF CBC, PTT, TSH3, CMP, CK, HS TROP, CBC, LIPASE ####[place] [address] USAComprehensive Metabolic Panel on 81-17-1249Txhmsab [Mass/Vol]3.5 g/dLNormal3.5-5.7The Counts Include 234 Beds At [facility] Physician GroupComment on above:Performed By: #### PT, DIFF CBC, PTT, TSH3, CMP, CK, HS TROP, CBC, LIPASE ####[place] [address] USAGFR/1.73 sq M.predicted MDRD (S/P/Bld) [Vol rate/Area]14.695 mL/min/{1.73_m2}NormalThe Counts Include 234 Beds At [facility] Physician [facility] HospitalComment on above:Performed By: #### PT, DIFF CBC, PTT, TSH3, CMP, CK, HS TROP, CBC, LIPASE ####[place] [address] USACreatine kinase [Enzymatic activity/volume] in Serum or PlasmaOrdered By: Regina Garcia on 12-38-6374MC [Catalytic activity/Vol]140 U/VQcezop19-386VmoeosgrfHolmes County Joel Pomerene Memorial HospitalComment on above:Performed By: #### PT, DIFF CBC, PTT, TSH3, CMP, CK, HS TROP, CBC, LIPASE ####[place] [id number] USACreatinine [Mass/volume] in Serum or PlasmaOrdered By: Regina Garcia on 90-79-6211Bvoolhmhia [Mass/Vol]3.19 mg/dLHigh0.60-1.20 [facility] HospitalComment on above:Performed By: #### PT, DIFF CBC, PTT, TSH3, CMP, CK, HS TROP, CBC, LIPASE ####[place] [id number] USADiff and CBCon 11-02-2024 Metamyelocytes4 %High0-0The Counts Include 234 Beds At [facility] Physician GroupComment on above:Performed By: #### PT, DIFF CBC, PTT, TSH3, CMP, CK, HS TROP, CBC, LIPASE ####[place] [address] USAMonocytes/100 WBC (Bld)33.42 %High0.00-20.00The Counts Include 234 Beds At [facility] Physician GroupComment on above:Result Comment: For adults in ED, MDW > 20.0 may be associated with a higher risk of sepsis during the first 12 hrs of hospital admission The predictive value of MDW for identifying sepsis in patients with hematological abnormalities has not been establishedPerformed By: #### PT, DIFF CBC, PTT, TSH3, CMP, CK, HS TROP, CBC, LIPASE ####[place] [id number] USAMyelocytes1 %High0-0The Counts Include 234 Beds At [facility] Physician GroupComment on above: Performed By: #### PT, DIFF CBC, PTT, TSH3, CMP, CK, HS TROP, CBC, LIPASE ####[place] [id number] [place] Platelet EstimateNormalNormalNormalThe Counts Include 234 Beds At [facility] Physician [facility] HospitalComment on above:Performed By: #### PT, DIFF CBC, PTT, TSH3, CMP, CK, HS TROP, CBC, LIPASE ####[facility] [place] [address] [place] Platelet MorphologyNormalNormalNormLee Health Coconut Point Physician GroupComment on above:Result Comment: PERFORMED BY:[address] [place], [place] [phone] MEDICAL JACKELYN VÁZQUEZ M.D.Performed By: #### PT, DIFF CBC, PTT, TSH3, CMP, CK, HS TROP, CBC, LIPASE ####[address] [address] USAToxic VacuolationSlightNoFormerly [facility] Physician GroupComment on above:Performed By: #### PT, DIFF CBC, PTT, TSH3, CMP, CK, HS TROP, CBC, LIPASE ####[address] [address] USADipstick and Microscopicon 15-38-0067Dtscntit,UrineNone SeenNormalNone SeenThe Counts Include 234 Beds At [facility] Physician GroupComment on above:Order Comment: Name Collection Type:: Pandya CatheterPerformed By: #### ADDONUAPLUS, URDS ####[address] [address] USABilirubin,UrineNegativeNormalNegative The Counts Include 234 Beds At [facility] Physician GroupComment on above:Order Comment: Name Collection Type:: Pandya CatheterPerformed By: #### ADDONUAPLUS, URDS ####[address] [address] USAGlucose Ql (U)NormalNormal NormalThe Counts Include 234 Beds At [facility] Physician GroupComment on above:Order Comment: Name Collection Type:: Pandya CatheterPerformed By: #### ADDONUAPLUS, URDS ####[address] [address] USAHyaline Casts,Nmqzy88-20Pprhmw6-1Ngn Counts Include [facility] Physician GroupComment on above:Order Comment: Name Collection Type:: Pandya CatheterPerformed By: #### ADDONUAPLUS, URDS ####[address] [address] [place] Mucus,UrineRareNormalPhysicians Regional Medical Center [facility] Ridge Physician GroupComment on above:Order Comment: Name Collection Type:: Pandya CatheterResult Comment: PERFORMED BY:[address] [place] [place], [place] [phone] MEDICAL JACKELYN VÁZQUEZ M.D.Performed By: #### JOSE LUIS, URDS ####[id number] USANitrite,UrineNegativeNormalNegativePhysicians [facility] Comment on above:Order Comment: Name Collection Type:: Pandya CatheterPerformed By: #### ADDONUAPLUS, URDS ####[id number] USAOccult Blood,UrineTraceNormalNegativePhysicians [facility] Physician GroupComment on above:Order Comment: Name Collection Type:: Pandya CatheterResult Comment: PERFORMED BY:[address] [place], [place] [phone] MEDICAL JACKELYN VÁZQUEZ M.D.Performed By: #### JOSE LUIS, URDS ####[id number] USARBC,Hrwba0-1Rwknmp0-3Usz Counts Include [facility] Physician GroupComment on above:Order Comment: Name Collection Type:: Pandya Catheter Performed By: #### JOSE LUIS, URDS ####[id number] USASpecificy [place],Urine1.225Eagerc9.001-1.030 The Counts Include [address] [facility] Physician GroupComment on above:Order Comment: Name Collection Type:: Pandya CatheterPerformed By: #### ADDONUAPLUS, URDS ####[id number] USASquamous Epithelial Cell,Viojl4-5Mawpii7-2Mmm [place] Physician GroupComment on above:Order Comment: Name Collection Type:: Pandya CatheterPerformed By: #### ADDONUAPLUS, URDS ####[address] [place] [address] [place] Urobilinogen,UrineNormalNormalNormalThe Counts Include 234 [facility] Physician GroupComment on above:Order Comment: Name Collection Type:: Pandya CatheterPerformed By: #### JOSE LUIS, URDS ####[address] [place] [address] USAWBC,Vhqqp7-2Erotnq6-3Pwi Counts Include 234 [facility] At [facility] Physician GroupComment on above: Order Comment: Name Collection Type:: Pandya CatheterPerformed By: #### ADDONUAPLUS, URDS ####[address] [address] USADrug Screen,Urineon 40-86-8405Tvnyrhfwekz Screen,UrineNegativeNormal NegativeThe Counts Include 234 [facility] At [facility] Physician GroupComment on above:Performed By: #### ANAPLUS, URDS ####[id number] USABarbiturate Screen,UrineNegativeNormalNegativeThe Counts Include [address] [facility] At [facility] Physician GroupComment on above:Performed By: #### ADDONUAPLUS, URDS ####[address] [address] [place] Benzodiazepines Screen,UrineNegativeNormalNegativeThe Counts Include [address] [facility] Comment on above:Performed By: #### ADDONUAPLUS, URDS ####[address] [address] USACannabinoid Screen,Urine NegativeNormalNegativeThe Counts Include 234 [facility] At [facility] Physician GroupComment on above:Result Comment: These are unconfirmed results and should not be used for legal purposes. Drug Cut-Off Concentration: AMPH 1000 ng/mL VIRGILIO 200 ng/mL OSCAR 200 ng/mL COCM 300 ng/mL OP 300 ng/mL PCP 25 ng/mL THC 20 ng/mLPERFORMED BY:[address] [place], [place] [phone] MEDICAL JACKELYN VÁZQUEZ M.D.Performed By: #### ADDONUAPLUS, URDS ####[id number] USACocaine Screen,UrineNegativeNormalNegativePhysicians Regional [facility] Physician GroupComment on above:Performed By: #### ADDONUAPLUS, URDS ####[address] [place] [address] USAOpiate Screen,Urine NegativeNormalNegativePhysicians [facility] Physician GroupComment on above:Performed By: #### ADDONUAPLUS, URDS ####[address] [place] [address] USAPhencyclidine Screen,UrineNegativeNormalNegativeThe Counts Include 234 [facility] At [facility] Physician GroupComment on above:Performed By: #### ADDONUAPLUS, URDS ####[address] [place] [address] USAECG 12 lead ECGon 69-18-6495MHH 12 lead ECGNormLee Health Coconut Point Physician GroupECG 12 lead ECGNoFormerly [facility] Physician GroupEosinophils Auto (Bld) [#/Vol]Ordered By: Regina Garcia on 38-68-2219Uhwzgjupcoa (Bld) [#/Vol]N/[facility] HospitalEosinophils/100 WBC Auto (Bld)Ordered By: Regina Garcia on 12-52-1571Owlksyfaadt/100 WBC (Bld)N/[facility] Epithelial cells.squamous [#/area] in Urine sediment by Automated countOrdered By: Regina Garcia on 41-52-3968Zbogtdyxze cells.squamous Auto (Urine sed) [#/Area]1-2 [HPF]0-2FCleveland Clinic Medina HospitalErythrocyte distribution width [Ratio] by Automated countOrdered By: Regina Garcia on 11-02-2024 Erythrocyte distribution width (RBC) [Ratio]16.8 %High11.9-15.3FCleveland Clinic Medina HospitalComment on above:Performed By: #### PT, DIFF CBC, PTT, TSH3, CMP, CK, HS TROP, CBC, LIPASE ####[facility] [address] [place] [address] USAErythrocyte morphology finding [Identifier] in BloodOrdered By: Regina Garcia on 67-08-2065WIE morphology finding Nom (Bld) N/AFCleveland Clinic Medina HospitalErythrocytes [#/area] in Urine sediment by Automated countOrdered By: Regina Garcia on 27-26-8810YGZ Auto (Urine sed) [#/Area]1-2 [HPF]0-4FCleveland Clinic Medina HospitalErythrocytes [#/volume] in Blood by Automated countOrdered By: Regina Garcia on 73-07-3110EFJ (Bld) [#/Vol]4.65 10*6/uLNormal3.60-5.00[facility] Memorial HospitalComment on above:Performed By: #### PT, DIFF CBC, PTT, TSH3, CMP, CK, HS TROP, CBC, LIPASE ####[address] [address] USAEthanol [Mass/volume] in Serum or PlasmaOrdered By: Regina Garcia on 11-02-2024 Ethanol [Mass/Vol]mg/dLNoMain Campus Medical CenterComment on above: Performed By: #### LACTIC, ETOH, AMM ####[address] [address] USAEthyl Alcohol Profileon 23-54-9221Vnnhhpq EthanolNot performedNoFormerly [facility] Physician GroupComment on above:Result Comment: PERFORMED BY:[address] [place], [place] [phone] MEDICAL JACKELYN VÁZQUEZ M.D.Performed By: #### LACTIC, ETOH, AMM ####[address] [address] USAGlucose Poct Glucometerson 96-09-2209Bclvwwp8Gxt8: Cleaned MeterNoFormerly [facility] Physician GroupComment on above:Result Comment: PERFORMED BY:[address] [place] [place], [place] [phone] MEDICAL JACKELYN VÁZQUEZ M.D.Performed By: #### GLULS ####Point of Care testing,Glucose [Mass/volume] in Serum or Plasma Ordered By: Regina Garcia on 19-69-9407Cfxdbsq [Mass/Vol]120 mg/jASsox60-258 [facility] Memorial HospitalComment on above:ADA recommended reference rangeRandom Glucose Reference Range is dependent on time and content of last meal. Glucose of more than 200 mg/dL in a nonstressed, ambulatory subject supports the diagnosisof Diabetes Mellitus.Result Comment: Random Glucose Reference Range is dependent on time and content of last meal. Glucose of more than 200 mg/dL in a nonstressed, ambulatory subject supports the diagnosis of Diabetes Mellitus. ADA recommended reference rangePerformed By: #### PT, DIFF CBC, PTT, TSH3, CMP, CK, HS TROP, CBC, LIPASE ####[address] [place] [address] USAGlucose [Mass/volume] in Urine by Test stripOrdered By: Regina Garcia on 82-00-9160Dpcrzht Test strip (U) [Mass/Vol] Normal mg/dLUC Medical CenterHematocrit [Volume Fraction] of Blood by Automated countOrdered By: Regina Garcia on 35-29-3494Emsnnphdbn (Bld) [Volume fraction]39.1 %Hzzcgn46.0-46.4FCleveland Clinic Medina Hospital Comment on above:Performed By: #### PT, DIFF CBC, PTT, TSH3, CMP, CK, HS TROP, CBC, LIPASE ####[address] [place] [address] USAHemoglobin Test strip Ql (U)Ordered By: Regina Garcia on 11-02-2024 Hemoglobin Ql (U)TraceHighNegativeHolmes County Joel Pomerene Memorial HospitalHemoglobin [Mass/volume] in BloodOrdered By: Regina Garcia on 76-13-6070Trdihoqbny (Bld) [Mass/Vol]12.9 g/iVUuczqy70.8-15.4FCleveland Clinic Medina HospitalComment on above:Performed By: #### PT, DIFF CBC, PTT, TSH3, CMP, CK, HS TROP, CBC, LIPASE ####[address] [place] [address] USAHyaline casts [#/area] in Urine sediment by Automated countOrdered By: Regina Garcia on 90-14-1867Ualbfab casts Auto (Urine sed) [#/Area]20-49 [LPF]High0-8Hol[facility]ome[facility] Memorial HospitalINR in Platelet poor plasma by Coagulation assayOrdered By: Regina Garcia on 63-97-0016GUR Coag (PPP) [Relative time]1.0 {INR}Normal [facility] HospitalComment on above:INR Therapeutic Range A) Pre- and Peroperative OAT started two weeks before surgery. NOT HIP SURGERY: 1.5 - 2.5 HIP SURGERY: 2 - 3B) Primary and secondary prevention of venous THROMBOSIS: 2 - 3C) Active venous thrombosis, pulmonary embolismand prevention of recurrent venous thrombosis: 2 - 3D) Prevention of arterial thromboembolismincluding patients with mechanical heart valves: 3 - 4.5Result Comment: INR Therapeutic Range A) Pre- and Peroperative OAT started two weeks before surgery. NOT HIP SURGERY: 1.5 - 2.5 HIP SURGERY: 2 - 3 B) Primary and secondary prevention of venous THROMBOSIS: 2 - 3 C) Active venous thrombosis, pulmonary embolism and prevention of recurrent venous thrombosis: 2 - 3 D) Prevention of arterial thromboembolism including patients with mechanical heart valves: 3 - 4.5 Performed By: #### PT, DIFF CBC, PTT, TSH3, CMP, CK, HS TROP, CBC, LIPASE ####[address] [address] USAISTAT ER Chem8+ Panelon 20-49-2747IW4 [Moles/Vol]20 mmol/BSat39-66Hbk Counts Include [address] [facility] At [facility] Physician GroupComment on above:Performed By: #### ERBMP ####[id number] USAISTAT Ionized Calcium1.20 mol/LNormal1.12-1.32The Counts Include [address] At [facility] Physician [facility] HospitalComment on above:Performed By: #### ERBMP ####[id number] USAISTAT ER Chem8+ PanelOrdered By: Regina Garcia on 20-01-1412Iwoqovznql (Bld) [Volume fraction]45.0 %Schdfl88.0-51.0[facility] Comment on above:Performed By: #### ERBMP ####[address] [address] USAKetones [Presence] in Urine by Test strip Ordered By: Regina Garcia on 75-15-8383Snywijf Ql (U)NegativeNormalNegative [facility] HospitalComment on above:Order Comment: Name Collection Type:: Pandya CatheterPerformed By: #### JOSE LUIS, URDS ####[address] [address] USALactate [Moles/volume] in Serum or PlasmaOrdered By: Regina Garcia on 11-02-2024 Lactate [Moles/Vol]2.7 mmol/LOff scale high0.5-1.9[facility] HospitalComment on above:Critical Result : Called to and read back by: ABI FRAZIER at: 11/02/2024 12:48:46 by:LFMLacticAcid reference range has been updated to 0.5 1.9 mmol/L and the critical range of 2.0 or greater.Result Comment: Critical Result : Called to and read back by: ABI FRAZIER at: 11/02/2024 12:48:46 by:LFM Lactic Acid reference range has been updated to 0.5 ? 1.9 mmol/L and the critical range of 2.0 or greater.PERFORMED BY:[address] [place] [place], [place] [phone] MEDICAL JACKELYN VÁZQUEZ M.D.Performed By: #### LACTIC, ETOH, AMM ####[address] [address] USALactic Acidon 34-97-9892Tcvppbq [Moles/Vol]1.4 mmol/LNormal0.5-1.9The Counts Include [address] At [facility] Physician GroupComment on above:Order Comment: JAYA Mccord [place] [address]Result Comment: Lactic Acid reference range has been updated to 0.5 ? 1.9 mmol/L and the critical range of 2.0 or greater.PERFORMED BY:[address] [address] [place], [place] [phone] MEDICAL JACKELYN VÁZQUEZ M.D.Performed By: #### LACTIC ####[address] [address] USALeukocyte esterase [Presence] in Urine by Test stripOrdered By: Regina Garcia on 80-08-4682Jvzcqxtqz esterase Test strip Ql (U)NegativeNormalNegativeHolmes County Joel Pomerene Memorial HospitalComment on above:Order Comment: Name Collection Type:: Pandya Catheter Performed By: #### JOSE LUIS, URDS ####[id number] USALeukocytes [#/area] in Urine sediment by Automated countOrdered By: Regina Garcia on 20-67-4200GQY Auto (Urine sed) [#/Area]1-2 [HPF]0-4FCleveland Clinic Medina HospitalLeukocytes [#/volume] corrected for nucleated erythrocytes in Blood by Automated counOrdered By: Regina Garcia on 90-77-1052PYP corrected for nucl RBC Auto (Bld) [#/Vol]9.1 10*3/uL3.8-11.6FCleveland Clinic Medina HospitalLeukocytes [#/volume] in Blood by Automated countOrdered By: Regina Garcia on 86-55-7746SLH (Bld) [#/Vol]9.1 10*3/uLNormal3.8-11.6FCleveland Clinic Medina HospitalComment on above:Performed By: #### PT, DIFF CBC, PTT, TSH3, CMP, CK, HS TROP, CBC, LIPASE ####[id number] USALipase [Enzymatic activity/volume] in Serum or PlasmaOrdered By: Regina Garcia on 11-02-2024 Lipase [Catalytic activity/Vol]12.0 U/QQzwypg74.0-82.0[facility] HospitalComment on above:Performed By: #### PT, DIFF CBC, PTT, TSH3, CMP, CK, HS TROP, CBC, LIPASE ####[address] [address] USALymphocytes Auto (Bld) [#/Vol]Ordered By: Regina Garcia on 74-84-0523Zgexgnidzqi (Bld) [#/Vol]N/[facility] Lymphocytes/100 WBC Auto (Bld)Ordered By: Regina Garcia on 11-02-2024 Lymphocytes/100 WBC (Bld)N/[facility] Memorial HospitalLymphocytes/100 leukocytes in Blood by Manual countOrdered By: Regina Garcia on 11-02-2024 Lymphocytes/100 WBC (Bld)5 %Wia40-80HapcbhliqHolmes County Joel Pomerene Memorial HospitalComment on above:Performed By: #### PT, DIFF CBC, PTT, TSH3, CMP, CK, HS TROP, CBC, LIPASE ####[address] [place] [address] [facility] [Entitic mass] by Automated countOrdered By: Regina Garcia on 55-97-6948ZBX (RBC) [Entitic mass]27.8 ceNjzwlr78.7-34.3FCleveland Clinic Medina Hospital Comment on above:Performed By: #### PT, DIFF CBC, PTT, TSH3, CMP, CK, HS TROP, CBC, LIPASE ####[address] [address] [facility] Auto (RBC) [Mass/Vol]Ordered By: Regina Garcia on 71-81-7192ITYV (RBC) [Mass/Vol]33.0 g/dL32.0-35.0[facility] Memorial HospitalMCV [Entitic volume] by Automated countOrdered By: Regina Garcia on 44-39-9105QQV (RBC) [Entitic vol]84.1 sWTqtjsc45-338BqutdxcenHolmes County Joel Pomerene Memorial HospitalComment on above:Performed By: #### PT, DIFF CBC, PTT, TSH3, CMP, CK, HS TROP, CBC, LIPASE ####[address] [address] [facility] Metamyelocytes/100 WBC Manual cnt (Bld)Ordered By: Regina Garcia on 11-02-2024 Metamyelocytes/100 WBC (Bld)4 %High0-0[facility] Memorial HospitalMonocyte distribution width [Entitic volume] in Blood by AutomatedOrdered By: Regina Garcia on 07-72-3214Vjbrwurs distribution width Auto (Bld) [Entitic vol]33.42 % High0.00-20.00[facility] Memorial HospitalComment on above:For adults in ED, MDW > 20.0 may be associated with a higher risk of sepsis during the first 12 hrs of hospital admissionThe predictive value of MDW for identifying sepsis in patients with hematological abnormalities has not been establishedMonocytes Auto (Bld) [#/Vol]Ordered By: Regina Garcia on 83-68-7116Bhqyoqprb (Bld) [#/Vol]N/[facility] HospitalMonocytes/100 WBC Auto (Bld)Ordered By: Regina Garcia on 73-15-4162Dxsgybkcv/100 WBC (Bld)NMercy Health St. Elizabeth Youngstown HospitalMonocytes/100 leukocytes in Blood by Manual countOrdered By: Reigna Garcia on 95-17-0014Mrxlvpxxw/100 WBC (Bld)9 %Normal2-11[facility] HospitalComment on above:Performed By: #### PT, DIFF CBC, PTT, TSH3, CMP, CK, HS TROP, CBC, LIPASE ####[facility] [address] [place] [id number] USAMucus [Presence] in Urine by AutomatedOrdered By: Regina Garcia on 66-69-8436Msfvq Auto Ql (U)Rare [LPF][facility] HospitalMyelocytes/100 WBC Manual cnt (Bld)Ordered By: Regina Garcia on 35-48-3792Nljwzkzvlb/100 WBC (Bld)1 %High0-0[facility] Neutrophils Auto (Bld) [#/Vol]Ordered By: Regina Garcia on 11-02-2024 Neutrophils (Bld) [#/Vol]N/[facility] HospitalNeutrophils/100 WBC Auto (Bld)Ordered By: Regina Garcia on 93-61-0845Wjosnhtuwcy/100 WBC (Bld)N/A [facility] Memorial HospitalNitrite Test strip Ql (U)Ordered By: Regina Garcia on 30-56-0050Beyhsbh Ql (U)NegativeNegativeHolmes County Joel Pomerene Memorial HospitalNo Panel InformationOrdered By: Regina Garcia on 38-30-3030Esvus Gas Critical ValueSee commentHolmes County Joel Pomerene Memorial HospitalComment on above: Critical Value called on: 11/02/2024 at 12:37Blood Gas Sample SiteVenous [facility] HospitalFiO221 %[facility] Memorial HospitalVenous Blood Base Excess-5.8 mmol/LLow-3.0-3.0[facility] Memorial HospitalVenous Blood Oxygen Content7.4 mmol/L6.6-9.7FCleveland Clinic Medina HospitalVenous Blood Oxygen Idkrgxvdhb83.4 %Critically high73.0-76.0[facility] Memorial HospitalVenous Blood Partial Pressure CO238.1 mm[Hg]38.0-50.0[facility] Memorial HospitalVenous Blood Partial Pressure O254.5 mm[Hg]High35.0-45.0[facility] Memorial HospitalVenous Blood pH7.337.32-7.43[facility] Memorial HospitalBedside Glucose CommentGlu2: cleaned meterHolmes County Joel Pomerene Memorial HospitalEstimated GFR (CKD-EPI)14.695 mL/MinHolmes County Joel Pomerene Memorial Hospital Pharmacy Creatinine Clearance (ChemN/[facility] Memorial HospitalNucleated erythrocytes [Presence] in Blood by Automated countOrdered By: Regina Garcia on 57-36-9781Vuccnpcux RBC Auto Ql (Bld)N/[facility] Opiates [Presence] in Urine by Screen methodOrdered By: Regina Garcia on 07-25-2373Oiazwfi Screen Ql (U)NegativeNegativeHolmes County Joel Pomerene Memorial Hospital Partial Thromboplastin Timeon 27-71-5264ePNS Coag (Bld) [Time]30.9 sNormal 25.1-36.5The Counts Include [address] At [facility] Physician GroupComment on above:Result Comment: A hematocrit value greater than 55% may lead to inaccurate results in coagulation testing. Patients having hematocrit values >55% require a special collection tube for coagulation studies. Please contact the laboratory at [phone] for redraw instructions.PERFORMED BY:[facility] [place], [place] [phone] MEDICAL DIRECTORCARLOS VÁZQUEZ M.D.Performed By: #### PT, DIFF CBC, PTT, TSH3, CMP, CK, HS TROP, CBC, LIPASE ####[address] [address] [facility] Phencyclidine Screen Ql (U)Ordered By: Regina Garcia on 11-02-2024 Phencyclidine Ql (U)NegativeNegativeHolmes County Joel Pomerene Memorial HospitalPlatelet adequacy [Presence] in Blood by Light microscopyOrdered By: Regina Garcia on 30-32-4930Ruyqevrkh LM Ql (Bld)NormalUC Medical Center Platelet mean volume [Entitic volume] in Blood by Automated countOrdered By: Regina Garcia on 59-29-7360Guwwlrhm mean volume (Bld) [Entitic vol]8.3 fL Normal6.3-10.7FCleveland Clinic Medina HospitalComment on above:Result Comment: PERFORMED BY:[address] [place], [place] [phone] MEDICAL DIRECTORCARLOS VÁZQUEZ M.D.Performed By: #### PT, DIFF CBC, PTT, TSH3, CMP, CK, HS TROP, CBC, LIPASE ####[address] [address] USAPlatelet morphology finding [Identifier] in BloodOrdered By: Regina Garcia on 01-63-4080Ufoztbzf morphology finding Nom (Bld)[facility] Platelets [#/volume] in Blood by Automated countOrdered By: Regina Garcia on 18-72-8286Mprzyxahv (Bld) [#/Vol]325 10*3/kHZuyflc226-067EuqlrwxanHolmes County Joel Pomerene Memorial HospitalComment on above:Performed By: #### PT, DIFF CBC, PTT, TSH3, CMP, CK, HS TROP, CBC, LIPASE ####[address] [address] USAPotassium [Moles/volume] in Serum or PlasmaOrdered By: Regina Garcia on 01-80-3882Ynhltuyaf [Moles/Vol]5.3 mmol/LHigh3.5-5.1 [facility] HospitalComment on above:Performed By: #### PT, DIFF CBC, PTT, TSH3, CMP, CK, HS TROP, CBC, LIPASE ####[facility] [place] [address] USAProtein [Mass/volume] in Serum or PlasmaOrdered By: Regina Garcia on 20-21-4800Ydifrqh [Mass/Vol]6.0 g/dLLow 6.4-8.9[facility] HospitalComment on above:Performed By: #### PT, DIFF CBC, PTT, TSH3, CMP, CK, HS TROP, CBC, LIPASE ####[facility] [place] [address] USAProtein [Mass/volume] in Urine by Test stripOrdered By: Regina Garcia on 65-04-4806Jffprxs (U) [Mass/Vol]30 mg/dLNormalNegativeHolmes County Joel Pomerene Memorial HospitalComment on above:Order Comment: Name Collection Type:: Pandya CatheterPerformed By: #### ADDONUAPLUS, URDS ####[address] [address] [facility] Prothrombin time (PT)Ordered By: Regina Garcia on 00-69-0530HV Coag (PPP) [Time]11.6 sNormal9.0-12.9[facility] Memorial HospitalComment on above:A hematocrit value greater than 55% may lead to inaccurate results in coagulation testing. Patientshaving hematocrit values >55% require a special collection tube for coagulation studies. Please contact the laboratory at [phone] for redraw instructions.Result Comment: A hematocrit value greater than 55% may lead to inaccurate results in coagulation testing. Patients having hematocrit values >55% require a special collection tube for coagulation studies. Please contact the laboratory at [phone] for redraw instructions.Performed By: #### PT, DIFF CBC, PTT, TSH3, CMP, CK, HS TROP, CBC, LIPASE ####[facility] [place] [address] USASegmented neutrophils/100 leukocytes in Blood by Manual countOrdered By: Regina Garcia on 11-02-2024 Segmented neutrophils/100 WBC (Bld)58 %Cxuybl48-77AietavojfHolmes County Joel Pomerene Memorial HospitalComment on above:Performed By: #### PT, DIFF CBC, PTT, TSH3, CMP, CK, HS TROP, CBC, LIPASE ####[place] [id number] USASerum globulin measurement by calculation (mass/volume)Ordered By: Regina Garcia on 46-80-8792Sxytyuhc (S) [Mass/Vol]2.5 g/dLNormalHolmes County Joel Pomerene Memorial HospitalComment on above:Performed By: #### PT, DIFF CBC, PTT, TSH3, CMP, CK, HS TROP, CBC, LIPASE ####[address] [address] USASerum or plasma albumin/globulin mass ratioOrdered By: Regina Garcia on 92-23-5651Vpnijax/Globulin [Mass ratio]1.4 {ratio}Normal [facility] HospitalComment on above:Performed By: #### PT, DIFF CBC, PTT, TSH3, CMP, CK, HS TROP, CBC, LIPASE ####[place] [address] USASerum or plasma anion gap determinationOrdered By: Regina Garcia on 27-49-3263Hipym gap [Moles/Vol]17.6 mmol/LHigh6.0-15.0[facility] HospitalComment on above:Performed By: #### PT, DIFF CBC, PTT, TSH3, CMP, CK, HS TROP, CBC, LIPASE ####[place] [place] [id number] USASerum or plasma ethanol measurement (mass/volume)Ordered By: Regina Garcia on 11-02-2024 Ethanol [Mass/Vol]TNParkwood HospitalComment on above:Test not performedSodium [Moles/volume] in Serum or PlasmaOrdered By: Regina Garcia on 61-50-1707Llfziz [Moles/Vol]132 mmol/OHpv070-576VkkjdgjvkHolmes County Joel Pomerene Memorial HospitalComment on above:Performed By: #### PT, DIFF CBC, PTT, TSH3, CMP, CK, HS TROP, CBC, LIPASE ####[place] [id number] USASpecific gravity Test strip (U) [Rel density]Ordered By: Regina Garcia on 57-17-2967Qghpyrpr gravity (U) [Rel density]1.0231.001-1.030[facility] Hospitaltool Occult Blood (Guaiac)on 79-14-1947Niytj Occult Blood (Guaiac)NormalThe Counts Include [address] [facility] Physician GroupComment on above:Performed By: #### OB(GUAIAC) ####[address] [address]PBNMoipi gastrointestinal hemoglobin detectionOrdered By: Regina Garcia on 97-29-6626Rzaysowrxs.gastrointestinal Ql (Stl)[facility]rene Memorial HospitalThyrotropin [Units/volume] in Serum or PlasmaOrdered By: Regina Garcia on 93-50-1599OXQ Qn2.44 m[IU]/LNormal0.45-5.33[facility] Comment on above:Result Comment: PERFORMED BY:[address] [address] [place] [place], [place] [phone] MEDICAL DIRECTORCARLOS VÁZQUEZ M.D.Performed By: #### PT, DIFF CBC, PTT, TSH3, CMP, CK, HS TROP, CBC, LIPASE ####[address] [address] USAToxic leukocyte vacuolation detectionOrdered By: Regina Garcia on 34-61-9063Roubcrigo toxic vacuoles LM Ql (Bld)[facility] for RehabilitationTroponin I High Sensitivityon 59-89-1717Qmbppdpj I High Pycdlfllgad60Zxpu2-43Vme Counts Include [address] [facility] Physician GroupComment on above:Result Comment: The Troponin units of report have been changed to meet the Chest Pain Accreditationrequirement, element EC5.M1l2. Troponin units are changed from pg/ml to ng/L. Also, the decimal is removed and results are in whole numbers.PERFORMED BY:[address] [address] [place] [place], [place] [phone] MEDICAL JACKELYN VÁZQUEZ M.D.Performed By: #### PT, DIFF CBC, PTT, TSH3, CMP, CK, HS TROP, CBC, LIPASE ####[facility] [place] [address] USATroponin I.cardiac [Mass/volume] in Serum or Plasma by Detection limit <= 0.01 ng/mLOrdered By: Regina Garcia on 59-06-2481Ulgpslrs I.cardiac DL <= 0.01 ng/mL [Mass/Vol]28 ng/LHigh0-15[facility] HospitalComment on above:The Troponin units of report have been changed to meet the Chest Pain Accreditation requirement, element EC5.M1l2. Troponin units are changed from pg/ml to ng/L. Also, the decimal is removed and results are in whole numbers.Urea nitrogen [Mass/volume] in Serum or PlasmaOrdered By: Regina Garcia on 94-98-1113Dcua nitrogen [Mass/Vol]77 mg/dLPreston Memorial Hospital7-25[facility] HospitalComment on above: Performed By: #### PT, DIFF CBC, PTT, TSH3, CMP, CK, HS TROP, CBC, LIPASE ####[id number] [place] [id number] [facility] Urobilinogen Test strip (U) [Mass/Vol]Ordered By: Regina Garcia on 11-02-2024 Urobilinogen (U) [Mass/Vol]Normal mg/dLNormalHolmes County [facility] Venous Blood GasOrdered By: Regina Garcia on 15-89-5520XQ1 [Moles/Vol]20.7 mmol/LLow24.0-29.0[facility] HospitalComment on above:Performed By: #### VBG ####Point of Care testing,HCO3 (Bld) [Moles/Vol]19.5 mmol/LLow 23.0-29.0[facility] HospitalComment on above:Performed By: #### VBG ####Point of Care testing,Venous Blood Gason 09-26-4385Wvabgphgttj Critical NormalThe Counts Include 234 [facility] At [facility] Physician GroupComment on above:Result Comment: Critical Value called on: 11/02/2024 at 12:37PERFORMED BY:[address] [address] [place] [place], [place] [phone] MEDICAL DIRECTORCARLOS VÁZQUEZ M.D.Performed By: #### VBG ####Point of Care testing, VBG Base Excess-5.8 mmol/LLow-3.0-3.0The Counts Include [address] [facility] At [facility] Physician GroupComment on above:Performed By: #### VBG ####Point of Care testing,VBG Draw SiteVenousNormal The Counts Include [address] [facility] At [facility] Physician GroupComment on above:Performed By: #### VBG ####Point of Care testing,VBG Frac Inspired O221 %NormalThe Counts Include [address] [facility] Comment on above:Performed By: #### VBG ####Point of Care testing,VBG O2 Content 7.4 mmol/LNormal6.6-9.7The Counts Include [address] [facility] At [facility] Physician GroupComment on above:Performed By: #### VBG ####Point of Care testing,VBG Oxygen Cwmgzavtyp28.4 %Off scale high 73.0-76.0The Counts Include [address] [facility] At [facility] Physician GroupComment on above:Performed By: #### VBG ####Point of Care testing,VBG VLM497.1 mm[Hg]Uqhiqm73.0-50.0The Counts Include 234 [facility] At [facility] Physician GroupComment on above:Performed By: #### VBG ####Point of Care testing,VBG PH Venous PH7.33Gddfui6.32-7.43The Counts Include [address] [facility] Physician [facility] HospitalComment on above:Performed By: #### VBG ####Point of Care testing,VBG PO254.5 mm[Hg]High 35.0-45.0The Counts Include [address] [facility] At [facility] Physician GroupComment on above:Performed By: #### VBG ####Point of Care testing,Whole blood chloride measurementOrdered By: Regina Garcia on 08-80-9880Aakwbmwv [Moles/Vol]102.0 mmol/NIilgek70-746AducccwpmHolmes County Joel Pomerene Memorial HospitalComment on above:Performed By: #### ERBMP ####[facility] [address] [place] [address] USAWhole blood creatinine measurementOrdered By: Regina Garcia on 01-63-0259Obwxmtnaoa [Mass/Vol]3.3 mg/dLHigh0.6-1.3FCleveland Clinic Medina HospitalComment on above: ER/ESD physician is notified/shown all ISTAT results.Critical values may be confirmed by laboratorytesting ifdeemed necessary by ER attending doctor.Result Comment: ER/ESD physician is notified/shown all ISTAT results. Critical values may be confirmed by laboratory testing if deemed necessary by ER attending doctor.Performed By: #### ERBMP ####[place] [id number] USAWhole blood ionized calcium measurement (moles/volume)Ordered By: Regina Garcia on 71-45-6995Yozbktk.ionized (Bld) [Moles/Vol]1200 mmol/L1.12-1.32[facility] HospitalWhole blood potassium measurementOrdered By: Regina Garcia on 84-87-6557Kwhtonrbv [Moles/Vol]5.2 mmol/LHigh3.5-4.9[facility] HospitalComment on above:Performed By: #### ERBMP ####[place] [id number] USAWhole blood sodium measurementOrdered By: Regina Garcia on 00-38-2970Pszevn [Moles/Vol]135 mmol/WYao716-090HqvwirndiHolmes County Joel Pomerene Memorial HospitalComment on above:Performed By: #### ERBMP ####[place] [id number] USAX-ray reportOrdered By: Alvaro Reid on 19-28-3731Jtwow reportPREMIER HEALTH [facility] [id number] XRay Report Signed Patient: Renuka Owen MR#: [id number] : 1950 Acct:[id number] Age/Sex: 73 / F ADM Date: 5 Loc: ER Room: Type: [facility] ER Attending Dr: Copies to: Regina Garcia DO~ Ordering Provider: Regina Garcia DO Date of Service: 11/02/24 XR/XR chest 1V portable: Neuro Symptoms/Deficit Plain film chest Single view HISTORY: Weakness COMPARISON: 06/01/2024 FINDINGS: SUPPORT DEVICES: None POSTSURGICAL CHANGES: None HEART: Within normal limits PULMONARY REBECCA: Within normal limits MEDIASTINUM: Unremarkable LUNGS AND PLEURA: Mild right basilar groundglass parenchymal density. No pleural effusion. No pneumothorax. Minor interstitial changes BONY STRUCTURES: Intact ADDITIONAL FINDINGS None XR/XR chest 1V portable IMPRESSION: Developing minor right basilar groundglass parenchymal density. Infiltrate/pneumonitis. Impression dictated by: Alvaro Reid M.D. 11/02/2024 3:05 PM Dictation Location: [facility] Transcribed By: [facility] 11/02/24 1505 Dictated By: Alvaro Reid DO 11/02/24 1504 Signed By: 11/02/24 1505 [facility] HospitalXR chest 1V portableon 02-34-8485ZU chest 1V portableMorton Plant [facility] Physician GroupaPTT in Platelet poor plasma by Coagulation assayOrdered By: Regina Garcia on 33-74-6633oXFW Coag (PPP) [Time] 30.9 s25.1-36.5FCleveland Clinic Medina HospitalComment on above:A hematocrit value greater than 55% may lead to inaccurate results in coagulation testing. Patientshaving hematocrit values >55% require a special collection tube for coagulation studies. Please contact the laboratory at [phone] for redraw instructions.pH of Urine by Test stripOrdered By: Regina Garcia on 11-02-2024 pH (U)5.0 [pH]Normal5.0-9.0[facility] HospitalComment on above: Order Comment: Name Collection Type:: Pandya CatheterPerformed By: #### ADDONUAPLUS, URDS ####[facility] [address] [place] [address] USABasophils Auto (Bld) [#/Vol]on 67-81-1053Unijyotui (Bld) [#/Vol]0.1 10 3/uL0.0-0.1FCleveland Clinic Medina HospitalBasophils/100 WBC Auto (Bld)on 83-35-7176Bzmlalope/100 WBC (Bld)0.9 %0.2-2.0[facility] Eosinophils/100 WBC Auto (Bld)on 28-61-9880Ukjufnnorry/100 WBC (Bld)3.4 %0.9-7.0 [facility] HospitalErythrocyte distribution width Auto (RBC) [Ratio]on 88-69-3805Gvzurrzciqo distribution width (RBC) [Ratio]17.2 %High 11.0-15.0[facility] HospitalEstimated glomerular filtration rate (GFR) non- Americanon 71-60-5076EEF/1.73 sq M.predicted among non-blacks MDRD (S/P/Bld) [Vol rate/Area]21 mL/min/{1.73_m2}Low>=60 mL/min/1.73m 2FCleveland Clinic Medina HospitalHematocrit Auto (Bld) [Volume fraction]on 10-13-2024 Hematocrit (Bld) [Volume fraction]35.1 %Low36.0-48.0[facility] HospitalHemoglobin [Mass/volume] in Bloodon 26-31-9566Avdigmodkq (Bld) [Mass/Vol] 11.3 g/dLLow12.0-16.0[facility] HospitalLaboratory - Chemistry and Chemistry - challengeon 53-26-5567Lfbjlpd [Mass/Vol]9.6 mg/dL8.5-10.1FCleveland Clinic Medina HospitalChloride [Moles/Vol]100 mmol/Y06-105VphqvljafHolmes County Joel Pomerene Memorial HospitalCO2 [Moles/Vol]34.1 mmol/LHigh21.0-32.0[facility] HospitalCreatinine [Mass/Vol]2.31 mg/dLHigh0.55-1.02[facility] HospitalGFR/1.73 sq M.predicted MDRD (S/P/Bld) [Vol rate/Area]25 mL/min/{1.73_m2} Low>=60 mL/min/1.73m [address] [place], [place] [address]Glucose [Mass/Vol]92 mg/bW72-846SfgbtqnmdHolmes County Joel Pomerene Memorial HospitalPotassium [Moles/Vol]4.9 mmol/L 3.5-5.1FSt. Elizabeth Hospitalodium [Moles/Vol]138 mmol/L649-968 [facility] HospitalUrea nitrogen [Mass/Vol]62.0 mg/dLHigh7.0-18.0 [facility] HospitalUrea nitrogen/Creatinine [Mass ratio]26.8 mg/mg [facility] HospitalLaboratory - Hematology and Cell countson 01-49-3538Zmqmdefw granulocytes/100 WBC (Bld)0.4 %0.0-0.5FCleveland Clinic Medina HospitalLeukocytes [#/volume] corrected for nucleated erythrocytes in Blood by Automated counon 94-37-0625AJY corrected for nucl RBC Auto (Bld) [#/Vol]8.0 10 3/uL4.0-11.0[facility] HospitalLymphocytes Auto (Bld) [#/Vol]on 08-53-7220Njyhubtbnoq (Bld) [#/Vol]1.2 10 3/uL1.2-3.8[facility] HospitalLymphocytes/100 WBC Auto (Bld)on 10-13-2024 Lymphocytes/100 WBC (Bld)15.0 %Low20.5-60.0[facility] HospitalMCH Auto (RBC) [Entitic mass]on 70-83-3131FJV (RBC) [Entitic mass]27.3 pg26.7-34.0 [facility] HospitalMCHC Auto (RBC) [Mass/Vol]on 15-47-6579SSPC (RBC) [Mass/Vol]32.2 g/dL29.9-35.2FCleveland Clinic Medina HospitalMCV Auto (RBC) [Entitic vol]on 51-79-6943IZS (RBC) [Entitic vol]84.8 fL81.0-99.0[facility] HospitalMonocytes Auto (Bld) [#/Vol]on 85-14-2435Aznxibsbz (Bld) [#/Vol]1.1 10 3/uLHigh0.3-0.8[facility] HospitalMonocytes/100 WBC Auto (Bld)on 12-47-0410Haihozcvh/100 WBC (Bld)13.5 %High1.7-12.0[facility] HospitalNeutrophils Auto (Bld) [#/Vol]on 31-64-4033Mjycozhewct (Bld) [#/Vol]5.3 10 3/uL1.4-6.5FCleveland Clinic Medina HospitalNeutrophils/100 WBC Auto (Bld)on 07-79-6865Tllyvuspklu/100 WBC (Bld)66.8 %43.0-75.0[facility] HospitalNo Panel Informationon 80-62-0227Byznqarwuxf # (Auto)0.3 10 3/uL0.0-0.7FCleveland Clinic Medina HospitalImmature Granulocyte # (Auto)0.03 10 3/uL0.00-0.03[facility] HospitalPlatelet mean volume Auto (Bld) [Entitic vol]on 71-64-2810Oofzkzvd mean volume (Bld) [Entitic vol]9.6 fL 9.5-13.5FCleveland Clinic Medina HospitalPlatelets Auto (Bld) [#/Vol]on 47-71-3003Ukwncgxbj (Bld) [#/Vol]305 10 3/iX619-519CtdaaygirHolmes County Joel Pomerene Memorial HospitalRBC Auto (Bld) [#/Vol]on 79-63-2424MRB (Bld) [#/Vol]4.14 10 6/uLLow 4.20-5.40C[facility] Clinic Lutheran Hospitalerum or plasma anion gap determinationon 59-26-0352Ytcoi gap [Moles/Vol]8.8 mmol/LFCleveland Clinic Medina HospitalXR Foot - left 3 Viewson 54-88-2540Eugnkhq Result: 3 views left foot: Weight-bearing: DP, oblique, lateral: 09/28/2024: Unremarkable for acute osseous or joint pathology. Unremarkable for fracture or stress fracture changes. 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 Arthritic changes of the navicular-cuneiform joint as well. 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.[facility] HealthcareRadiology Study observation (narrative)[facility] HealthcareBasophils Auto (Bld) [#/Vol]on 01-56-8974Trqhgtpwn (Bld) [#/Vol]Automated basophil count 0.0-0.1FCleveland Clinic Medina HospitalBasophils (Bld) [#/Vol]0.1 10 3/uL 0.0-0.1FCleveland Clinic Medina HospitalBasophils/100 WBC Auto (Bld)on 19-92-1534Khnkdopbg/100 WBC (Bld)Automated basophil %0.2-2.0[facility] HospitalBasophils/100 WBC (Bld)1.0 %0.2-2.0[facility] HospitalEosinophils/100 WBC Auto (Bld)on 71-16-9403Gvkbmthwmpm/100 WBC (Bld) Automated eosinophil %0.9-7.0[facility] HospitalEosinophils/100 WBC (Bld)4.6 %0.9-7.0[facility] HospitalErythrocyte distribution width Auto (RBC) [Ratio]on 54-44-3362Rsnhqntlcii distribution width (RBC) [Ratio]Erythrocyte distribution width [Ratio] by Automated cxdoaZuxm05.0-15.0 [facility] HospitalErythrocyte distribution width (RBC) [Ratio] 15.6 %High11.0-15.0[facility] HospitalEstimated glomerular filtration rate (GFR) non- Americanon 03-45-4411UNH/1.73 sq M.predicted among non-blacks MDRD (S/P/Bld) [Vol rate/Area]Estimated glomerular filtration rate (GFR) non- AmericanLow>=60 mL/min/1.73m 2FCleveland Clinic Medina HospitalGFR/1.73 sq M.predicted among non-blacks MDRD (S/P/Bld) [Vol rate/Area]32 mL/min/{1.73_m2}Low>=60 mL/min/1.[address]m [address] [place], [place] [address]Globulin Calc (S) [Mass/Vol]on 31-45-8050Qxwjczos (S) [Mass/Vol]Serum globulin measurement by calculation (mass/volume)[facility] Globulin (S) [Mass/Vol]3.5 g/dLHolmes County Joel Pomerene Memorial HospitalHematocrit Auto (Bld) [Volume fraction]on 28-81-3668Ljfmhpmanp (Bld) [Volume fraction]Hematocrit [Volume Fraction] of Blood by Automated iylqvGxg91.0-48.0[facility] HospitalHematocrit (Bld) [Volume fraction]33.6 %Low36.0-48.0[facility] HospitalHemoglobin [Mass/volume] in Bloodon 62-60-4108Eemzgpeeym (Bld) [Mass/Vol]Hemoglobin [Mass/volume] in JjxhmJnk08.0-16.0[facility] HospitalHemoglobin (Bld) [Mass/Vol]11.0 g/dLLow12.0-16.0[facility] HospitalLaboratory - Chemistry and Chemistry - challengeon 09-05-2024 Albumin [Mass/Vol]3.7 g/dL3.4-5.0[facility] HospitalALP [Catalytic activity/Vol]82 U/A77-590CuupznspgHolmes County Joel Pomerene Memorial HospitalALT [Catalytic activity/Vol]20 U/V67-24VfthbvztgHolmes County Joel Pomerene Memorial HospitalAST [Catalytic activity/Vol]21 U/T41-92ZiheezjbpHolmes County Joel Pomerene Memorial HospitalBilirubin [Mass/Vol]0.4 mg/dL0.2-1.0[facility] HospitalCalcium [Mass/Vol]9.5 mg/dL 8.5-10.1FCleveland Clinic Medina HospitalChloride [Moles/Vol]101 mmol/L98-107 [facility] HospitalCO2 [Moles/Vol]29.0 mmol/L21.0-32.0[facility] HospitalCobalamin (Vitamin B12) [Mass/Vol]491 pg/pE771-5049 [facility] HospitalComment on above:Performed at: - Lab[address] [id number] Director: Jerad Medina PhD, Phone: [phone] [Mass/Vol]1.58 mg/dLHigh0.55-1.02[facility] HospitalFerritin [Mass/Vol]45.0 ng/mL8.0-252.0[facility] HospitalGFR/1.73 sq M.predicted MDRD (S/P/Bld) [Vol rate/Area]39 mL/min/{1.73_m2} Low>=60 mL/min/1.73m 2FCleveland Clinic Medina HospitalGlucose [Mass/Vol]89 mg/uY58-885VupntcddcHolmes County Joel Pomerene Memorial HospitalPotassium [Moles/Vol]4.5 mmol/L 3.5-5.1FCleveland Clinic Medina HospitalProtein [Mass/Vol]7.2 g/dL6.4-8.2 [facility] Lutheran Hospitalodium [Moles/Vol]139 mmol/I080-891BwgbrcudbHolmes County Joel Pomerene Memorial HospitalTSH Qn3.165 m[IU]/L0.358-3.740[facility] HospitalUrea nitrogen [Mass/Vol]44.0 mg/dLHigh7.0-18.0[facility] HospitalUrea nitrogen/Creatinine [Mass ratio]27.8 mg/mgHolmes County Joel Pomerene Memorial HospitalLaboratory - Hematology and Cell countson 93-10-5115Plsgjtad granulocytes/100 WBC (Bld)0.2 %0.0-0.5FCleveland Clinic Medina Hospital Leukocytes [#/volume] corrected for nucleated erythrocytes in Blood by Automated counon 19-16-8775ZUL corrected for nucl RBC Auto (Bld) [#/Vol]Leukocytes [#/volume] corrected for nucleated erythrocytes in Blood by Automated coun 4.0-11.0[facility] HospitalWBC corrected for nucl RBC Auto (Bld) [#/Vol]6.1 10 3/uL4.0-11.0[facility] HospitalLymphocytes Auto (Bld) [#/Vol]on 95-67-0060Fcdjjjjoiid (Bld) [#/Vol]Lymphocytes [#/volume] in Blood by Automated count1.2-3.8[facility] HospitalLymphocytes (Bld) [#/Vol]1.5 10 3/uL1.2-3.8[facility] HospitalLymphocytes/100 WBC Auto (Bld)on 05-95-5617Ggnbiojjojm/100 WBC (Bld)Lymphocytes/100 leukocytes in Blood by Automated count20.5-60.0[facility] Lymphocytes/100 WBC (Bld)24.5 %20.5-60.0[facility] HospitalMCH Auto (RBC) [Entitic mass]on 96-35-4518DZN (RBC) [Entitic mass]MCH [Entitic mass] by Automated count26.7-34.0[facility] HospitalH (RBC) [Entitic mass]27.2 pg26.7-34.0[facility] HospitalHC Auto (RBC) [Mass/Vol] on 29-89-0437YZWA (RBC) [Mass/Vol]MCHC [Mass/volume] by Automated count29.9-35.2 [facility] HospitalHC (RBC) [Mass/Vol]32.7 g/dL29.9-35.2 [facility] HospitalV Auto (RBC) [Entitic vol]on 25-70-6396EVN (RBC) [Entitic vol]MCV [Entitic volume] by Automated count81.0-99.0[facility] HospitalV (RBC) [Entitic vol]83.2 fL81.0-99.0[facility] HospitalMonocytes Auto (Bld) [#/Vol]on 14-81-6410Dpuuesvii (Bld) [#/Vol] Automated blood monocyte count0.3-0.8[facility] HospitalMonocytes (Bld) [#/Vol]0.7 10 3/uL0.3-0.8[facility] HospitalMonocytes/100 WBC Auto (Bld)on 03-32-5573Eplevzlsd/100 WBC (Bld)Automated monocyte %1.7-12.0 [facility] HospitalMonocytes/100 WBC (Bld)11.7 %1.7-12.0[facility] HospitalNeutrophils Auto (Bld) [#/Vol]on 69-38-5406Sbaahhrgncr (Bld) [#/Vol]Neutrophils [#/volume] in Blood by Automated count1.4-6.5FCleveland Clinic Medina HospitalNeutrophils (Bld) [#/Vol]3.5 10 3/uL1.4-6.5FCleveland Clinic Medina HospitalNeutrophils/100 WBC Auto (Bld)on 09-05-2024 Neutrophils/100 WBC (Bld)Automated neutrophil %43.0-75.0[facility] HospitalNeutrophils/100 WBC (Bld)58.0 %43.0-75.0[facility] HospitalNo Panel Informationon 17-14-3300Xqnwtqejrrs # (Auto)0.3 10 3/uL0.0-0.7 [facility] HospitalFolate16.50 ng/mL8.60-58.90[facility] HospitalImmature Granulocyte # (Auto)0.01 10 3/uL0.00-0.03[facility] HospitalPlatelet mean volume Auto (Bld) [Entitic vol]on 72-35-9045Yzmsfjnz mean volume (Bld) [Entitic vol]Platelet mean volume [Entitic volume] in Blood by Automated count9.5-13.5FC[facility] Clinic Medina Hospital Platelet mean volume (Bld) [Entitic vol]10.2 fL9.5-13.5FCleveland Clinic Medina HospitalPlatelets Auto (Bld) [#/Vol]on 47-33-4176Jwtkblixw (Bld) [#/Vol] Platelets [#/volume] in Blood by Automated rqqmu670-055YgeaaroqiHolmes County Joel Pomerene Memorial HospitalPlatelets (Bld) [#/Vol]333 10 3/zU877-468CfuanopshHolmes County Joel Pomerene Memorial HospitalRBC Auto (Bld) [#/Vol]on 49-03-8088WPT (Bld) [#/Vol]Erythrocytes [#/volume] in Blood by Automated countLow4.20-5.40[facility] HospitalRBC (Bld) [#/Vol]4.04 10 6/uLLow4.20-5.40[facility] Serum or plasma albumin/globulin mass ratioon 70-63-8081Zfvpbzw/Globulin [Mass ratio]Serum or plasma albumin/globulin mass ratioHolmes County Joel Pomerene Memorial HospitalAlbumin/Globulin [Mass ratio]1.1 {ratio}[facility] Serum or plasma anion gap determinationon 15-45-6683Kvhhh gap [Moles/Vol]Serum or plasma anion gap determinationHolmes County Joel Pomerene Memorial HospitalAnion gap [Moles/Vol]13.5 mmol/LFCleveland Clinic Medina HospitalCBC W Auto Differential panel (Bld)on 25-47-6138Erfymvdwi (Bld) [#/Vol]0.06 10*3/uLNINFOhiohealth Van Wert Hospital Basophils/100 WBC (Bld)0.8 %[facility] HospitalDifferential cell count method Nom (Bld)AutoCleveland ClinicEosinophils (Bld) [#/Vol]0.4 10*3/uLNINFOhiohealth Van Wert HospitalEosinophils/100 WBC (Bld)5.2 %[facility] HospitalErythrocyte distribution width (RBC) [Ratio]15.7 %High11.5 - 15.0 %[facility] HospitalHematocrit (Bld) [Volume fraction]34.2 %Low36.0 - 46.0 %[facility] HospitalHemoglobin (Bld) [Mass/Vol]11.1 g/dLLow11.5 - 15.5 g/dLOhiohealth Van Wert HospitalImmature granulocytes (Bld) [#/Vol]0.03 10*3/uLNIMercy Health St. Elizabeth Youngstown HospitalImmature granulocytes/100 WBC (Bld) 0.4 %[facility] HospitalInterpretation and review of laboratory resultsAbnormal [facility] HospitalLymphocytes (Bld) [#/Vol]1.57 10*3/[facility] Lymphocytes/100 WBC (Bld)20.4 %[facility] HospitalH (RBC) [Entitic mass]27.3 pg 26.0 - 34.0 pgCOhioHealth Grady Memorial HospitalHC (RBC) [Mass/Vol]32.5 g/dL30.5 - 36.0 g/dL [facility] HospitalV (RBC) [Entitic vol]84 fL80.0 - 100.0 fLCKettering Health Main Campus Monocytes (Bld) [#/Vol]0.75 10*3/NIMercy Health St. Elizabeth [facility] HospitalMonocytes/100 WBC (Bld) 9.7 %[facility] HospitalNeutrophils (Bld) [#/Vol]4.9 10*3/[facility] Neutrophils/100 WBC (Bld)63.5 %[facility] HospitalNucleated RBC (Bld) [#/Vol]NINF [facility] HospitalNucleated RBC/100 WBC (Bld) [Ratio]0 %/100 WBCOhiohealth Van Wert Hospital Platelet mean volume (Bld) [Entitic vol]9.7 fL9.0 - 12.7 fLCKettering Health Main Campus Platelets (Bld) [#/Vol]328 10*3/[facility] HospitalRBC (Bld) [#/Vol]4.07 10*6/uL 3.90 - 5.20 m/[facility] HospitalWBC (Bld) [#/Vol]7.71 10*3/uLSelect Medical Cleveland Clinic Rehabilitation Hospital, AvonBasophils (Bld) [#/Vol]0.06 10*3/uLNormal<0.11COhioHealthCombrighton hospital on above:Order Comment: Specimen Type: BLOOD SPECIMEN Ordering Facility: [facility] Address: [address] [place], [place] [address]Performed By: #### [id number] #### [facility] CLIA [id number] [address] [place], [place] [address]Pyyezfbfo/100 WBC (Bld)0.8 %[facility] Comment on above:Order Comment: Specimen Type: BLOOD SPECIMEN [facility] Facility[facility] Address: [address] [place], [place] [address]Performed By: #### [id number] #### [facility] CLIA [id number] [address] [place] [address]Zxlbgsgqydlh cell count method Nom (Bld)AutoNormalCOhioHealthCombrighton hospital on above:Order Comment: Specimen Type: BLOOD SPECIMEN Ordering Facility: [facility] Address: [address] [place], [place] [address]Performed By: #### [id number] #### [facility] CLIA [id number] [address] [place], [place] [address]Ecqcdffzrbf (Bld) [#/Vol]0.40 10*3/uLNormal<0.46[facility] on above:Order Comment: Specimen Type: BLOOD SPECIMEN [facility] Facility: [facility] Address: [address] [place], [place] [address]Performed By: #### [id number] #### [facility] CLIA [id number] [address], [place] [address]Rfpkoxjmmgl/100 WBC (Bld)5.2 %NormalTrumbull Memorial Hospital Comment on above:Order Comment: Specimen Type: BLOOD SPECIMEN [facility] Address: [address], [place] [address]Performed By: #### 77360-6 #### [facility] CLIA [id number] [address], [place] [address]Vuxuczcihpj distribution width (RBC) [Ratio]15.7 %High 11.5-15.0[facility] on above:Order Comment: Specimen Type: BLOOD SPECIMEN [facility] Address: [address] [place], [place] [address]Performed By: #### 49457-6 #### [facility] CLIA [id number] [address] [place] [address] 12165Sqgwukcoza (Bld) [Volume fraction]34.2 %Low36.0-46.0[facility] on above:Order Comment: Specimen Type: BLOOD SPECIMEN [facility] Address: [address] [place], [place] [address]Performed By: #### 36153-1 #### [facility] CLIA [id number] [address] [place] [address] 32252Vvkkrkrhxg (Bld) [Mass/Vol]11.1 g/dLLow11.5-15.5CSycamore Medical Center on above:Order Comment: Specimen Type: BLOOD SPECIMEN [facility] Address: [address] [place], [place] [address]Performed By: #### 60061-1 #### [facility] CLIA [id number] [address] [place] [address] 25038Aliyxxxn granulocytes (Bld) [#/Vol]0.03 10*3/uLNormal<0.10 [facility] on above:Order Comment: Specimen Type: BLOOD SPECIMEN [facility] Address: [address] [place], [place] [address]Performed By: #### 47701-2 #### [facility] CLIA [id number] [address], [place] [address]Faxigzgv granulocytes/100 WBC (Bld)0.4 %NormalCleveland Clinic Mentor Hospital on above:Order Comment: Specimen Type: BLOOD SPECIMEN [facility] Address: [address] [place], [place] [address]Performed By: #### 96712-1 #### [facility] CLIA [id number] [address] [place] [address] 98028Jfvbwsyhmzj (Bld) [#/Vol]1.57 10*3/uLNormal1.00-4.00[facility] on above:Order Comment: Specimen Type: BLOOD SPECIMEN [facility] Address: [address] [place], [place] [address]Performed By: #### 81130-7 #### [facility] CLIA [id number] [address] [place] [address] 51751Ihcantlobyj/100 WBC (Bld)20.4 %NormalCleveland Clinic Mentor Hospital on above:Order Comment: Specimen Type: BLOOD SPECIMEN [facility] Address: [address] [place], [place] [address]Performed By: #### 67128-6 #### [facility] CLIA [id number] [address] [place] [address] 84876RRQ (RBC) [Entitic mass]27.3 yxAcmuee19.0-34.0[facility] on above:Order Comment: Specimen Type: BLOOD SPECIMEN [facility] Address: [address] [place], [place] [address]Performed By: #### 32216-7 #### [facility] CLIA [id number] [address] [place] [address] 77319UXFP (RBC) [Mass/Vol]32.5 g/tLGpqtcb72.5-36.0[facility] on above:Order Comment: Specimen Type: BLOOD SPECIMEN [facility] Address: [address] [place], [place] [address]Performed By: #### 40227-0 #### [facility] CLIA [id number] [address] [place] [address] 44379JHR (RBC) [Entitic vol]84.0 yOQdbsjx59.0-100.0Trumbull Memorial HospitalComment on above:Order Comment: Specimen Type: BLOOD SPECIMEN [facility] Address: [address] [place], [place] [address]Performed By: #### 02207-2 #### [facility] CLIA [id number] [address] [place] [address] 35561Epigafheg (Bld) [#/Vol]0.75 10*3/uLNormal<0.87[facility] on above:Order Comment: Specimen Type: BLOOD SPECIMEN [facility] Address: [address] [place], [place] [address]Performed By: #### 55702-4 #### [facility] CLIA [id number] [address] [place] [address] 92828Uabsiexeq/100 WBC (Bld)9.7 %NormalTrumbull Memorial Hospital Comment on above:Order Comment: Specimen Type: BLOOD SPECIMEN [facility] Address: [address] [place], [place] [address]Performed By: #### 93773-4 #### [facility] CLIA [id number] [address] [place] [address] 58751Vgngysitgus (Bld) [#/Vol]4.90 10*3/uLNormal1.45-7.50[facility] on above:Order Comment: Specimen Type: BLOOD SPECIMEN [facility] Address: [address] [place], [place] [address]Performed By: #### 30210-3 #### [facility] CLIA [id number] [address] [place] [address] 26677Rzgazgnfdpj/100 WBC (Bld)63.5 %NormalCleveland Clinic Ment[facility] Hospital on above:Order Comment: Specimen Type: BLOOD SPECIMEN [facility] Address: [address], [place] [address]Performed By: #### 92856-5 #### [facility] CLIA [id number] [address] [place] [address] 00860Lixgiyynf RBC (Bld) [#/Vol]10*3/uLNormal<0.01[facility] on above:Order Comment: Specimen Type: BLOOD SPECIMEN [facility] Address: [address] [place], [place] [address]Performed By: #### 47080-6 #### [facility] CLIA [id number] [address] [place] [address] 58391Nwcqkegfq RBC/100 WBC (Bld) [Ratio]0.0 /100 WBCNormalCSycamore Medical Center on above:Order Comment: Specimen Type: BLOOD SPECIMEN [facility] Address: [address] [place], [place] [address]Performed By: #### 42548-2 #### [facility] CLIA [id number] [address] [place] [address] 49156Guyuoktw mean volume (Bld) [Entitic vol]9.7 fLNormal9.0-12.7 [facility] on above:Order Comment: Specimen Type: BLOOD SPECIMEN [facility] Address: [address], [place] [address]Performed By: #### 20471-2 #### [facility] CLIA [id number] [address], [place] [address]Avhpxvzfu (Bld) [#/Vol]328 10*3/eXPufpkw815-899NeuhuldxmCleveland Clinic [facility] Hospital on above:Order Comment: Specimen Type: BLOOD SPECIMEN [facility] Address: [address] [place], [place] [address]Performed By: #### 96158-9 #### [facility] CLIA [id number] [address], [place] [address]SPS (Bld) [#/Vol]4.07 10*6/uLNormal3.90-5.20[facility] on above:Order Comment: Specimen Type: BLOOD SPECIMEN [facility] Address: [address] [place], [place] [address]Performed By: #### 98426-8 #### [facility] CLIA [id number] [address], [place] [address]TXF (Bld) [#/Vol]7.71 10*3/uLNormal3.70-11.00[facility] on above:Order Comment: Specimen Type: BLOOD SPECIMEN [facility] Address: [address] [place], [place] [address]Performed By: #### 79176-3 #### [facility] CLIA [id number] [address] [place] [address] 49817OLIDLDip [id number] (SP) Office (HEMAS[place]) ONIELRENUKA MAX ([id number]) 1950 F Date Time Provider Department 08/21/24 11:20 AM JACOB MERCADO During your visit today, we recorded the following information about you: Temperature Pulse Respiration Blood pressure 97.4 degrees 67/minute 18/minute 117/57 Weight 74.7 kg Jacob Mercado MD 08/22/2024 8:37 PM Signed PATIENT NAME: Renuka Owen DATE: 08/21/2024 PRIMARY CARE PHYSICIAN: Dr. Sylvester Jacob OTHER PHYSICIANS: Dr. Coley, Dr. Artur Sutherland, Dr. Snyder, Dr. Ortega Portions of this encounter note have been copied from the note from 06/22/2023 and has been updated where appropriate, and reflect my current medical decision making from today. CC: This is a 73 year old female with a history of breast cancer, seen for scheduled follow-up. INTERIM HISTORY: Since the patient's last visit here she apparently developed complications from her cardiac medications and was hospitalized May 2024, and subsequently spent 3 weeks in rehab. Since being home she has done well. Ankle swelling and shortness of breath have resolved. Still some fatigue but not severe. Otherwise no significant medical changes. No changes in her right breast or left breast implant. No recurrent chest pain or other signs of pleurisy. MEDICATIONS: LISINOPRIL ORAL Take by mouth. gabapentin (NEURONTIN) 300 mg capsule Take 2 capsules by mouth three times a day for 360 days. torsemide (DEMADEX) 20 mg tablet Take 1 tablet by mouth every afternoon. ALLERGY RELIEF, CETIRIZINE, 10 mg tablet traMADol (ULTRAM) 50 mg tablet every 6 hours as needed. baclofen (LIORESAL) 20 mg tablet Take 1 tablet by mouth daily at bedtime. omeprazole (PRILOSEC) 20 mg capsule Take 20 mg by mouth once daily. fluticasone (FLONASE) 50 mcg/actuation nasal spray 2 Sprays once daily. lisinopril 2.5 mg tablet Take 2.5 mg by mouth once daily. gabapentin (NEURONTIN) 300 mg capsule TAKE 1 CAPSULE BY MOUTH IN THE MORNING AND 2 CAPSULES IN THE AFTERNOON AND AT BEDTIME hydroCHLOROthiazide (HYDRODIURIL, ESIDRIX) 25 mg tablet Take 25 mg by mouth once daily. carvedilol (COREG) 6.25 mg tablet Take 6.25 mg by mouth twice daily with meals. ALLERGIES: Penicillins and Lipitor [Atorvastatin Calcium] PAST [...] HISTORY OF Left 2018 rotator cuff surgery PAST SURGICAL HISTORY OF 04/2023 spinal infusion TUBAL LIGATION, REVIEW OF SYSTEMS: General: No [...] neuropathy- See HPI. PHYSICAL EXAM: Vitals: BP 117/57 Pulse 67 Temp 36.3 ?C (97.4 ?F) (Temporal) Resp 18 Wt 74.7 kg (164 lb 10.9 oz) SpO2 99% BMI 30.11 kg/m? ECOG 1 Gen.: This is an age-appropriate patient in [...] changes. Right breast without masses or skin (more content not included)...NormalTrumbull Memorial HospitalComprehensive metabolic 2000 panelOrdered By: Marianela Chavarria on 67-72-3405Gagpuvj [Mass/Vol]4.1 g/dL3.9 - 4.9 g/dLTohatchi ClinicALP [Catalytic activity/Vol]84 U/L34 - 123 U/LCleveland ClinicALT [Catalytic activity/Vol]11 U/L7 - 38 U/LCleveland ClinicAnion gap [Moles/Vol]12 mmol/L8 - 15 mmol/L Tohatchi ClinicAST [Catalytic activity/Vol]20 U/L13 - 35 U/LCleveland Clinic Bilirubin [Mass/Vol]0.4 mg/dL0.2 - 1.3 mg/dLTohatchi ClinicCalcium [Mass/Vol] 10.1 mg/dL8.5 - 10.2 mg/dLTohatchi ClinicChloride [Moles/Vol]104 mmol/L98 - 107 mmol/LCleveland ClinicCO2 [Moles/Vol]25 mmol/L22 - 30 mmol/LCleveland Clinic Creatinine [Mass/Vol]1.33 mg/dLHigh0.58 - 0.96 mg/dLOhiohealth Van Wert HospitalGFR/1.73 sq M.predicted among non-blacks MDRD (S/P/Bld) [Vol rate/Area]42 mL/min/{1.73_m2} Low- PINFCleveland ClinicComment on above:Estimated Glomerular Filtration Rate (eGFR) is calculated using the 2020 CKD-EPI creatinine equation. This equation utilizes serum creatinine, sex, and age as parameters. The creatinine assay has traceable calibration to isotope dilution-mass spectrometry. Refer to KDIGO guidelines for clinical interpretation. In patients with unstable renal function, e.g. those with acute kidney injury, the eGFRmay not accurately reflect actual GFR.Glucose [Mass/Vol]104 mg/aAKhyg60 - 99 mg/dLOhiohealth Van Wert Hospital Comment on above:The [place] Diabetes Association (ADA) provides guidance for cutoff [...] Standards of Medical Care in Diabetes 2016, [place] Diabetes Association. Diabetes Care. 2016.39(Suppl 1). Interpretation and review of laboratory resultsAbnormalCleveland ClinicPotassium [Moles/Vol]4.8 mmol/L3.7 - 5.1 mmol/LCwilson street hospital ClinicProtein [Mass/Vol]6.9 g/dL 6.3 - 8.0 g/dLCrystal Clinic Orthopedic Centerodium [Moles/Vol]141 mmol/L136 - 144 mmol/L [facility] Van Wert HospitalUrea nitrogen [Mass/Vol]61 mg/dLHigh7 - 21 mg/dLSelect Medical [facility] Clinic Rehabilitation Hospital, AvonComprehensive metabolic 2000 panelon 23-91-4015Gffutkb [Mass/Vol]4.1 g/dLNormal3.9-4.9CSycamore Medical Center on above:Order Comment: Specimen Type: BLOOD SPECIMEN [facility] Address: [address] [place], [place] [address]Performed By: #### 50093-1 #### [facility] CLIA [id number] [address], [place] [address]YLG [Catalytic activity/Vol]84 U/WFgiavb28-297JcxkcviwvCleveland Clinic [facility] Hospital on above:Order Comment: Specimen Type: BLOOD SPECIMEN [facility] Address: [address] [place], [place] [address]Performed By: #### 49927-3 #### [facility] CLIA [id number] [address], [place] [address]BCZ [Catalytic activity/Vol]11 U/LNormal7-38[facility] on above:Order Comment: Specimen Type: BLOOD SPECIMEN [facility] Address: [address], [place] [address]Performed By: #### 25554-0 #### [facility] CLIA [id number] [address], [place] [address]Avpfl gap [Moles/Vol]12 mmol/LNormal8-15[facility] on above:Order Comment: Specimen Type: BLOOD SPECIMEN [facility] Address: [address] [place], [place] [address]Performed By: #### 34771-9 #### [facility] CLIA [id number] [address], [place] [address]ZJK [Catalytic activity/Vol]20 U/CVkazyp86-42FfrpytdbkCleveland Clinic Ment[facility] Hospital on above:Order Comment: Specimen Type: BLOOD SPECIMEN [facility] Address: [address] [place], [place] [address]Performed By: #### 36951-8 #### [facility] CLIA [id number] [address] [place] [address] 94164Tuemsthgu [Mass/Vol]0.4 mg/dLNormal0.2-1.3CSycamore Medical Center on above:Order Comment: Specimen Type: BLOOD SPECIMEN [facility] Address: [address] [place], [place] [address]Performed By: #### 89965-4 #### [facility] CLIA [id number] [address] [place] [address] 63414Qqwwbyh [Mass/Vol]10.1 mg/dLNormal8.5-10.2CSycamore Medical Center on above:Order Comment: Specimen Type: BLOOD SPECIMEN [facility] Address: [address] [place], [place] [address]Performed By: #### 22514-9 #### [facility] CLIA [id number] [address] [place] [address] 40[address]Nhjbjzgl [Moles/Vol]104 mmol/VOcgtqv67-511MbunejcrxCleveland Clinic Mentor Hospital on above:Order Comment: Specimen Type: BLOOD SPECIMEN [facility] Address: [address] [place], [place] [address]Performed By: #### 05253-2 #### [facility] CLIA [id number] [address] [place] [address] 29245LY5 [Moles/Vol]25 mmol/RFlfyzl38-14UolconwelTrumbull Memorial Hospital Comment on above:Order Comment: Specimen Type: BLOOD SPECIMEN [facility] Address: [facility] [place], [place] [address]Fjixrjemp By: #### 90200-7 #### [facility] CLIA [id number] [address] [place] [address] 45478Yetlwuydsl [Mass/Vol]1.33 mg/dLHigh0.58-0.96Trumbull Memorial HospitalComment on above:Order Comment: Specimen Type: BLOOD SPECIMEN [facility] Address: [address] [place], [place] [address]Performed By: #### 88085-4 #### [facility] CLIA [id number] [address], [place] [address]Njoxuacmni and Glomerular filtration rate.predicted panel (S/P/Bld)42 mL/min/1.73m???Low>=60[facility] on above: Order Comment: Specimen Type: BLOOD SPECIMEN [facility] Address: [address] [place], [place] [address]Result Comment: Estimated Glomerular Filtration Rate (eGFR) is calculated using the 2020 CKD-EPI cre atinine equation. This equation utilizes serum creatinine, sex, and age as parameters. The creatinine assay has traceable calibration to isotope dilution- mass spectrometry. Refer to KDIGO guidelines for clinical interpretation. In patients with unstable renal function, e.g. those with acute kidney injury, the eGFR may not accurately reflect actual GFR.Performed By: #### 14567-9 #### [facility] CLIA [id number] [address] [place] [address] 46707Ollvask [Mass/Vol]104 mg/cSMudk65-79RykrnzzfqTrumbull Memorial Hospital Comment on above:Order Comment: Specimen Type: BLOOD SPECIMEN [facility] Address: [address] [place], [place] [address]Result Comment: The [place] Diabetes Association (ADA) provides guidance for cutoff [...] Standards of Medical Care in Diabetes 2016, [place] Diabetes Association. Diabetes Care. 2016.39(Suppl 1).Performed By: #### 89226-1 #### [facility] CLIA [id number] [address], [place] [address]Obcoyylph [Moles/Vol]4.8 mmol/LNormal3.7-5.1CSycamore Medical Center on above:Order Comment: Specimen Type: BLOOD SPECIMEN [facility] Address: [address] [place], [place] [address]Performed By: #### 87862-7 #### [facility] CLIA [id number] [address] [place] [address] 70600Znrxozj [Mass/Vol]6.9 g/dLNormal6.3-8.0[facility] on above:Order Comment: Specimen Type: BLOOD SPECIMEN [facility] Address: [address] [place], [place] [address]Performed By: #### 08054-3 #### [facility] CLIA [id number] [address] [place] [address] 43855Ifmixy [Moles/Vol]141 mmol/VTpqvbw759-723KanbaidcnCleveland Clinic Ment[facility] Hospital on above:Order Comment: Specimen Type: BLOOD SPECIMEN [facility] Address: [address] [place], [place] [address]Performed By: #### 85923-4 #### [facility] CLIA [id number] [address] [place] [address] 412[address]Jkpp nitrogen [Mass/Vol]61 mg/dLHigh7-21[facility] on above:Order Comment: Specimen Type: BLOOD SPECIMEN [facility] Address: [address] [place], [place] [address]Performed By: #### 70909-6 #### [facility] CLIA [id number] [address], [place] [address]U-ucg reportOrdered By: Saman Vo on 89-05-1123Mnjji reportPREMIER HEALTH [facility] [place] [facility] [address] [place] [address] XRay Report Signed Patient: Renuka Owen MR#: [id number] : 1950 Acct:[id number] Age/Sex: 73 / F ADM Date: 5 Loc: [facility] [place]: Type: [facility] CLI Attending Dr: Emory Cole II, MD Copies to: Emory Cole MD~ Ordering Provider: Emory Cole MD Date of Service: 06/29/24 XR/XR knee LT 3V - NOT FOR ER USE: Z96.652 - Presenceof left artificial knee joint ([id number]) XR/XR pelvis 1-2V: Z96.652 - Presence of left artificial knee joint AP PELVIS: Left knee 3 views CLINICAL HISTORY: Follow-up left TKA. COMPARISON: Left knee 06/01/2024 Pelvis: Mild left and moderate right degenerative changes of the hips without acute bony process. Partially visualized hardware fixation lower lumbar spine with degenerative changes involving the lower lumbar spine, SI joints and pubic symphysis. Left knee: Left TKA without radiographic complication. No acute bony process. XR/XR pelvis 1-2V IMPRESSION: MILD LEFT AND MODERATE RIGHT DEGENERATIVE CHANGES OF THE HIPS. LEFT TKA WITHOUT RADIOGRAPHIC COMPLICATION. Impression dictated by: Saman Vo Jr., D.O.06/29/2024 10:50 AM Dictation Location: [place] [address] Transcribed By: [facility] 06/29/24 1050 Dictated By: Saman Vo Jr, DO 06/29/24 1048 Signed By: 06/29/24 1050 [facility] HospitalXR knee LT 3V - NOT FOR ER USEon 35-16-6500II knee LT 3V - NOT FOR ER USENoFormerly [facility] Physician GroupBasic Metabolic Panelon 12-62-5292Gpyyp gap [Moles/Vol]12.6 mmol/LNormal6.0-15.0The Counts Include [address] [facility] Physician GroupComment on above:Performed By: #### BMP, MG ####[place] [address] USACalcium [Mass/Vol]8.7 mg/dLNormal8.6-10.3The Counts Include [address] [facility] Physician GroupComment on above:Performed By: #### BMP, MG ####[place] [address] USAChloride [Moles/Vol]107 mmol/GRipyss31-620Wdw Counts Include [address] [facility]ician Group Comment on above:Performed By: #### BMP, MG ####[place] [address] USACO2 [Moles/Vol]23.8 mmol/LNormal 21.0-31.0The Counts Include [address] [facility] Physician GroupComment on above:Performed By: #### BMP, MG ####[place] [address] [place] Creatinine [Mass/Vol]1.23 mg/dLHigh0.60-1.20The Counts Include [address] [facility] Physician [facility] HospitalComment on above:Performed By: #### BMP, MG ####[place] [address] USACreatinine Clr Calc Bkdhoaqb04.03NoFormerly [facility] Physician [facility] HospitalComment on above:Result Comment: PERFORMED BY:[place] [address] [place], [place] [id number] MEDICAL DIRECTORLLOYD NICHOLSON M.D.Performed By: #### BMP, MG ####[address] [address] [place] Estimated GFR46.113 mL/MinNoFormerly [facility] Physician [facility] HospitalComment on above: Performed By: #### BMP, MG ####[address] [address] USAGlucose [Mass/Vol]86 mg/hLNfmmkc30-863Jyz Counts Include [address] Physician GroupComment on above:Result Comment: Random Glucose Reference Range is dependent on time and content of last meal. Glucose of more than 200 mg/dL in a nonstressed, ambulatory subject supports the diagnosis of Diabetes Mellitus. ADA recommended reference rangePerformed By: #### BMP, MG ####[facility] [address] [place] [address] USAPotassium [Moles/Vol]3.4 mmol/LLow3.5-5.1The Counts Include [address] Physician GroupComment on above:Performed By: #### BMP, MG ####[facility] [address] [place] [address] USASodium [Moles/Vol]140 mmol/WRkawhf469-643Eog Counts Include [address] [facility] Physician GroupComment on above:Performed By: #### BMP, MG ####[facility] [address] [place] [address] USAUrea nitrogen [Mass/Vol]29 mg/dLHigh7-25The Counts Include [address] [facility] Physician GroupComment on above:Performed By: #### BMP, MG ####[facility] [address] [place] [address] USACalcium [Mass/volume] in Serum or PlasmaOrdered By: Isaiah Mejia on 44-76-4851Sddoyvd [Mass/Vol]Calcium [Mass/volume] in Serum or Plasma8.6-10.3FCleveland Clinic Medina HospitalCarbon dioxide, total [Moles/volume] in Serum or PlasmaOrdered By: Isaiah Mejia on 46-18-8343OY6 [Moles/Vol]Carbon dioxide, total [Moles/volume] in Serum or Mrqqqm41.0-31.0[facility] Memorial HospitalChloride [Moles/volume] in Serum or PlasmaOrdered By: Isaiah Mejia on 06-05-2024 Chloride [Moles/Vol]Chloride [Moles/volume] in Serum or Adaokq52-808ZblazzxczHolmes County Joel Pomerene Memorial HospitalCreatinine [Mass/volume] in Serum or PlasmaOrdered By: Isaiah Mejia on 00-89-0005Publsrhsgl [Mass/Vol]Creatinine [Mass/volume] in Serum or PlasmaHigh0.60-1.20[facility] Memorial HospitalGlucose [Mass/volume] in Serum or PlasmaOrdered By: Isaiah Mejia on 77-50-4304Hitmxnu [Mass/Vol]Glucose [Mass/volume] in Serum or Hxvlwt48-361BeoqjhhtzHolmes County Joel Pomerene Memorial HospitalComment on above:ADA recommended reference rangeRandom Glucose Reference Range is dependent on time and content of last meal. Glucose of more than 200 mg/dL in a nonstressed, ambulatory subject supports the diagnosisof Diabetes Mellitus.Magnesiumon 99-47-3243Hyefrgnxg [Mass/Vol]1.7 mg/dLLow1.9-2.7 The Counts Include [address] Physician GroupComment on above:Result Comment: PERFORMED BY:[facility] [place], [place] [phone] MEDICAL DIRECTORLLOYD NICHOLSON M.D.Performed By: #### BMP, MG ####[facility] [address] [place] [address] USAMagnesium [Mass/volume] in Serum or PlasmaOrdered By: Sherin Arellano on 61-76-6361Sqxpettgl [Mass/Vol]Magnesium [Mass/volume] in Serum or PlasmaLow 1.9-2.7FCleveland Clinic Medina HospitalNo Panel InformationOrdered By: Isaiah Mejia on 55-58-2876Gyptfnmve GFR (CKD-EPI)46.113 mL/MinHolmes County Joel Pomerene Memorial HospitalPharmacy Creatinine Clearance (Chem37.03[facility] HospitalPotassium [Moles/volume] in Serum or PlasmaOrdered By: Isaiah Mejia on 07-59-4925Foygluodh [Moles/Vol]Potassium [Moles/volume] in Serum or PlasmaLow 3.5-5.1FSt. Elizabeth Hospitalerum or plasma anion gap determination Ordered By: Isaiah Mejia on 69-38-0224Icmld gap [Moles/Vol]Serum or plasma anion gap determination6.0-15.0[facility] Lutheran Hospitalodium [Moles/volume] in Serum or PlasmaOrdered By: Isaiah Mejia on 63-08-4581Cajinn [Moles/Vol]Sodium [Moles/volume] in Serum or Rncrpp432-646WgqlbmclzHolmes County Joel Pomerene Memorial HospitalUrea nitrogen [Mass/volume] in Serum or PlasmaOrdered By: Isaiah Mejia on 47-53-8525Ctik nitrogen [Mass/Vol]Urea nitrogen [Mass/volume] in Serum or PlasmaHigh7-25[facility] HospitalBasic Metabolic Panelon 46-24-7351Znxjq gap [Moles/Vol]10.2 mmol/LNormal6.0-15.0The Counts Include [facility] Physician GroupComment on above:Performed By: #### BMP ####[address] [address] USACalcium [Mass/Vol]9.0 mg/dLSignificant change down8.6-10.3The Counts Include [facility] Physician GroupComment on above:Performed By: #### BMP ####[address] [address] USAChloride [Moles/Vol]110 mmol/WSubr77-936Njk Counts Include [facility] Physician GroupComment on above:Performed By: #### BMP ####[address] [address] USACO2 [Moles/Vol]24.6 mmol/AKfvlim79.0-31.0The Counts Include [facility] Physician GroupComment on above:Performed By: #### BMP ####[address] [address] USACreatinine [Mass/Vol] 1.21 mg/dLHigh0.60-1.20The Counts Include [facility] Physician GroupComment on above:Performed By: #### BMP ####[address] [address] USACreatinine Clr Calc Wrcphmfz12.46NormLee Health Cocon[facility] Comment on above:Result Comment: PERFORMED BY:[address] [address] [address] [place], [place] [phone] MEDICAL DIRECTORLLOYD NICHOLSON M.D.Performed By: #### BMP ####[address] [address] USAEstimated GFR47.029 mL/Min NormalThe Counts Include [facility] Physician GroupComment on above:Performed By: #### BMP ####[address] [address] USAGlucose [Mass/Vol]95 mg/kERgdekd76-696Pua Counts Include [facility] Physician GroupComment on above: Result Comment: Random Glucose Reference Range is dependent on time and content of last meal. Glucose of more than 200 mg/dL in a nonstressed, ambulatory subject supports the diagnosis of Diabetes Mellitus. ADA recommended reference rangePerformed By: #### BMP ####[place] [address] USAPotassium [Moles/Vol]3.8 mmol/LNormal3.5-5.1The Counts Include [facility] Physician GroupComment on above:Performed By: #### BMP ####[place] [address] USASodium [Moles/Vol]141 mmol/LVtslmy397-511Nms Counts Include [facility] Physician GroupComment on above:Performed By: #### BMP ####[id number] USAUrea nitrogen [Mass/Vol]31 mg/dLHigh7-25The Counts Include [facility] Physician GroupComment on above:Performed By: #### BMP ####[id number] USABasic Metabolic Panelon 41-12-6583Zslze gap [Moles/Vol]10.7 mmol/LNormal6.0-15.0The Counts Include [facility] Physician GroupComment on above:Performed By: #### BMP, MG ####[id number] USACalcium [Mass/Vol]7.4 mg/dLLow8.6-10.3The Counts Include [address] [facility] Physician GroupComment on above:Performed By: #### BMP, MG ####[address] USAChloride [Moles/Vol] 115 mmol/VUzrj34-710Gxl Counts Include [address] [facility] Physician GroupComment on above:Performed By: #### BMP, MG ####[address] USACO2 [Moles/Vol]21.3 mmol/BBnxrpr10.0-31.0The Counts Include [address] [facility] Comment on above:Performed By: #### BMP, MG ####[address] [address] USACreatinine [Mass/Vol]1.03 mg/dL Significant change down0.60-1.20The Counts Include [address] [facility] Physician GroupComment on above: Performed By: #### BMP, MG ####[place] [address] USACreatinine Clr Calc Mitkjdbm69.07NormLee Health Coconut Point Physician GroupComment on above:Result Comment: PERFORMED BY:[address] ABHISHEKGaloRadhaHUI, [place] [phone] MEDICAL DIRECTORLLOYD NICHOLSON M.D.Performed By: #### BMP, MG ####[address] [address] USAEstimated GFR57.057 mL/MinNoFormerly [facility] Physician [facility] Memorial HospitalComment on above:Performed By: #### BMP, MG ####[place] [id number] USAGlucose [Mass/Vol]99 mg/uAFyuhdw34-989Qhn Counts Include [facility] Physician GroupComment on above:Result Comment: Random Glucose Reference Range is dependent on time and content of last meal. Glucose of more than 200 mg/dL in a nonstressed, ambulatory subject supports the diagnosis of Diabetes Mellitus. ADA recommended reference rangePerformed By: #### BMP, MG ####[place] [id number] USAPotassium [Moles/Vol]3.0 mmol/LLow3.5-5.1The Counts Include [address] [facility] Physician GroupComment on above:Performed By: #### BMP, MG ####[address] USASodium [Moles/Vol]144 mmol/HHqhrln593-614Oqi Counts Include [address] [facility] Physician GroupComment on above: Performed By: #### BMP, MG ####[address] [place] USAUrea nitrogen [Mass/Vol]42 mg/dLSignificant change upe Counts Include [address] [facility] Physician GroupComment on above:Performed By: #### BMP, MG ####[address] [address] [place] Basophils Auto (Bld) [#/Vol]Ordered By: Isaiah Mejia on 36-23-2810Xhupumknf (Bld) [#/Vol]Automated basophil count0.0-0.2FCleveland Clinic Medina Hospital Basophils/100 WBC Auto (Bld)Ordered By: Isaiah Mejia on 06-03-2024 Basophils/100 WBC (Bld)Automated basophil %.[facility] Complete Blood Count Auto Diffon 00-06-1946Rrttfriow (Bld) [#/Vol]0.1 10*3/uL Normal0.0-0.2The Counts Include [address] [facility] Physician GroupComment on above:Result Comment: PERFORMED BY:[address] [place], [place] [phone] MEDICAL DIRECTORLLOYD NICHOLSON M.D. Performed By: #### CBC ####[address] [address] USABasophils/100 WBC (Bld)1.0 %Normal.The Counts Include [facility] Physician GroupComment on above:Performed By: #### CBC ####[address] [address] USAEosinophils (Bld) [#/Vol]0.3 10*3/uLNormal0.0-0.45The Counts Include [address] [facility] Physician GroupComment on above:Performed By: #### CBC ####[address] [address] USAEosinophils/100 WBC (Bld)4.2 %Normal.The Counts Include [address] [facility] Physician GroupComment on above:Performed By: #### CBC ####[place] [id number] USAErythrocyte distribution width (RBC) [Ratio]14.0 % Xkwpro15.9-15.3The Counts Include [address] [facility] Physician GroupComment on above:Performed By: #### CBC ####[place] [address] [facility] Hematocrit (Bld) [Volume fraction]27.8 %Low34.0-46.4The Counts Include [address] [facility] Physician GroupComment on above:Performed By: #### CBC ####[place] [address] USAHemoglobin (Bld) [Mass/Vol]9.2 g/dLLow 11.8-15.4The Counts Include [address] [facility] Physician GroupComment on above:Performed By: #### CBC ####[place] [address] [place] Lymphocytes (Bld) [#/Vol]0.9 10*3/uLLow1.00-4.8The Counts Include [address] [facility] Comment on above:Performed By: #### CBC ####[place] [address] USALymphocytes/100 WBC (Bld)12.0 %Normal.The Counts Include [address] [facility] Physician GroupComment on above:Performed By: #### CBC ####[address] Kirk StreetMCH (RBC) [Entitic mass]28.9 grXzilky40.7-34.3The Counts Include [address] [facility] Physician GroupComment on above: Performed By: #### CBC ####[place] [address] [facility] CENTERMCV (RBC) [Entitic vol]87.1 vVSmvtkg80-431Ysy Counts Include [address] [facility] Physician [facility] HospitalComment on above:Performed By: #### CBC ####[place] [address] USAMean Corpuscular HGB Conc33.2 g/oIMxlool84.0-35.0The Counts Include [address] [facility] Physician GroupComment on above: Performed By: #### CBC ####[place] [address] USAMonocytes (Bld) [#/Vol]0.7 10*3/uLNormal0.0-0.8The Counts Include [address] [facility] Physician GroupComment on above:Performed By: #### CBC ####[address] [address] USAMonocytes/100 WBC (Bld)9.8 %Normal.The Counts Include [address] [facility] Physician GroupComment on above:Performed By: #### CBC ####[address] [address] USANeutrophils (Bld) [#/Vol]5.5 10*3/uLNormal1.8-7.7The Counts Include [address] [facility] Physician GroupComment on above:Performed By: #### CBC ####[address] [address] USANeutrophils/100 WBC (Bld)73.0 %Normal. The Counts Include [address] [facility] Physician GroupComment on above:Performed By: #### CBC ####[address] [address] USANRBC% 0.1 /100{WBC}Normal0-0.5The Counts Include [address] [facility] Physician GroupComment on above:Performed By: #### CBC ####[address] [address] USAPlatelet mean volume (Bld) [Entitic vol]8.4 fLNormal6.3-10.7The Counts Include [address] [facility] Physician GroupComment on above:Performed By: #### CBC ####[address] [address] USAPlatelets (Bld) [#/Vol]226 10*3/pOYyfpvi308-978Ysr Counts Include [address] [facility] Physician GroupComment on above: Performed By: #### CBC ####[address] [address] USARBC (Bld) [#/Vol]3.19 10*6/uLLow3.60-5.00The Counts Include [address] [facility] Physician GroupComment on above:Performed By: #### CBC ####[address] [address] USAWBC (Bld) [#/Vol]7.5 10*3/uLNormal3.8-11.6The Counts Include [address] [facility] Physician GroupComment on above:Performed By: #### CBC ####[facility] [place] [address] USAEosinophils Auto (Bld) [#/Vol]Ordered By: Isaiah Mejia on 06-03-2024 Eosinophils (Bld) [#/Vol]Automated eosinophil count0.0-0.45[facility] HospitalEosinophils/100 WBC Auto (Bld)Ordered By: Isaiah Mejia on 47-66-8239Uyjprltcjsg/100 WBC (Bld)Automated eosinophil %.[facility] HospitalErythrocyte distribution width Auto (RBC) [Ratio]Ordered By: Isaiah Mejia on 87-90-6130Yrtohbhjcet distribution width (RBC) [Ratio] Erythrocyte distribution width [Ratio] by Automated count11.9-15.3FCleveland Clinic Medina HospitalHematocrit Auto (Bld) [Volume fraction]Ordered By: Isaiah Mejia on 62-69-0314Fjazxqmfec (Bld) [Volume fraction]Hematocrit [Volume Fraction] of Blood by Automated evzpfJoe37.0-46.4FCleveland Clinic Medina HospitalHemoglobin [Mass/volume] in BloodOrdered By: Isaiah Mejia on 06-03-2024 Hemoglobin (Bld) [Mass/Vol]Hemoglobin [Mass/volume] in IwlzoQhc14.8-15.4 [facility] HospitalLeukocytes [#/volume] corrected for nucleated erythrocytes in Blood by Automated counOrdered By: Isaiah Mejia on 06-03-2024 WBC corrected for nucl RBC Auto (Bld) [#/Vol]Leukocytes [#/volume] corrected for nucleated erythrocytes in Blood by Automated coun3.8-11.6FCleveland Clinic Medina HospitalLymphocytes Auto (Bld) [#/Vol]Ordered By: Isaiah Mejia on 37-81-6341Srrupgycugk (Bld) [#/Vol]Lymphocytes [#/volume] in Blood by Automated countLow1.00-4.8[facility] HospitalLymphocytes/100 WBC Auto (Bld) Ordered By: Isaiah Mejia on 49-29-0589Bytibtkazcv/100 WBC (Bld)Lymphocytes/100 leukocytes in Blood by Automated count.[facility] HospitalH Auto (RBC) [Entitic mass]Ordered By: Isaiah Mejia on 85-42-1513RZC (RBC) [Entitic mass]MCH [Entitic mass] by Automated count24.7-34.3FCleveland Clinic Medina HospitalMCHC Auto (RBC) [Mass/Vol]Ordered By: Isaiah Mejia on 06-03-2024 MCHC (RBC) [Mass/Vol]MCHC [Mass/volume] by Automated count32.0-35.0[facility] HospitalMCV Auto (RBC) [Entitic vol]Ordered By: Isaiah Mejia on 34-08-9501HCT (RBC) [Entitic vol]MCV [Entitic volume] by Automated iywdc77-927 [facility] HospitalMagnesiumon 36-49-8750Aqayvphja [Mass/Vol]1.9 mg/dLSignificant change down1.9-2.7The Counts Include [address] [facility] Physician GroupComment on above:Result Comment: PERFORMED BY:[facility]IE [place], [place] [phone] MEDICAL DIRECTORLLOYD YANEZ M.D.Performed By: #### BMP, MG ####[address] [address] USAMonocytes Auto (Bld) [#/Vol]Ordered By: Isaiah Mejia on 12-65-6137Eqfsvxiuw (Bld) [#/Vol]Automated blood monocyte count0.0-0.8[facility] HospitalMonocytes/100 WBC Auto (Bld)Ordered By: Isaiah Mejia on 54-35-0888Fgmispxyp/100 WBC (Bld)Automated monocyte %. [facility] HospitalNeutrophils Auto (Bld) [#/Vol]Ordered By: Isaiah Mejia on 10-77-2662Gyelhjommln (Bld) [#/Vol]Neutrophils [#/volume] in Blood by Automated count1.8-7.7FCleveland Clinic Medina HospitalNeutrophils/100 WBC Auto (Bld)Ordered By: Isaiah Mejia on 16-05-6918Zctvsruygtd/100 WBC (Bld) Automated neutrophil %.[facility] HospitalNucleated erythrocytes [Presence] in Blood by Automated countOrdered By: Isaiah Mejia on 06-03-2024 Nucleated RBC Auto Ql (Bld)Nucleated erythrocytes [Presence] in Blood by Automated count0-0.5FCleveland Clinic Medina HospitalPlatelet mean volume Auto (Bld) [Entitic vol]Ordered By: Isaiah Mejia on 48-75-3150Pthkrwgs mean volume (Bld) [Entitic vol]Platelet mean volume [Entitic volume] in Blood by Automated count6.3-10.7FCleveland Clinic Medina HospitalPlatelets Auto (Bld) [#/Vol] Ordered By: Isaiah Mejia on 10-45-2969Phxeqayug (Bld) [#/Vol]Platelets [#/volume] in Blood by Automated gqcoe789-664AyyopjxbvHolmes County Joel Pomerene Memorial Hospital RBC Auto (Bld) [#/Vol]Ordered By: Isaiah Mejia on 09-87-4742GQN (Bld) [#/Vol] Erythrocytes [#/volume] in Blood by Automated countLow3.60-5.00[facility] HospitalUS renal BIon 49-96-6281LO renal BINormalThe Counts Include [address] [facility] Physician [facility] HospitalWBC Auto (Bld) [#/Vol]Ordered By: Isaiah Mejia on 06-36-9101YOT (Bld) [#/Vol]Leukocytes [#/volume] in Blood by Automated count3.8-11.6FCleveland Clinic Medina HospitalB-Type Natriuretic Peptideon 62-87-2657Drmghcnuvas peptide B (Bld) [Mass/Vol]228.0 pg/mLHigh5-100The Counts Include [address] [facility] Comment on above:Result Comment: PERFORMED BY:[facility] MARTINEZSOU[place], [place] [phone] MEDICAL DIRECTORLLOYD NICHOLSON M.D.Performed By: #### BNP, BMP, CBC ####[facility] [place] [address] [place] [address] USABasic Metabolic Panelon 49-11-4794Aivmz gap [Moles/Vol]11.3 mmol/LNormal6.0-15.0The Counts Include [address] [facility] Physician GroupComment on above:Performed By: #### BNP, BMP, CBC ####[address] [place] [address] USACalcium [Mass/Vol]8.7 mg/dLSignificant change down8.6-10.3The Counts Include [address] [facility] Comment on above:Performed By: #### BNP, BMP, CBC ####[address] [place] [address] USAChloride [Moles/Vol]103 mmol/LNormal 98-107The Counts Include [address] [facility] Physician [facility] HospitalComment on above:Performed By: #### BNP, BMP, CBC ####[address] [address] [place] CO2 [Moles/Vol]28.3 mmol/WNtdpkk34.0-31.0The Counts Include [address] [facility] Physician GroupComment on above:Performed By: #### BNP, BMP, CBC ####[address] [address] USACreatinine [Mass/Vol]2.48 mg/dLSignificant change up0.60-1.20The Counts Include [address] [facility] Physician GroupComment on above:Performed By: #### BNP, BMP, CBC ####[address] [address] USACreatinine Clr Calc Jknhwclw26.30NoFormerly [facility] Physician Group Comment on above:Result Comment: PERFORMED BY:[address] [place], [place] [phone] MEDICAL DIRECTORLLOYD NICHOLSON M.D.Performed By: #### BNP, BMP, CBC ####[address] [address] [place] Estimated GFR19.878 mL/MinNoFormerly [facility] Physician [facility] HospitalComment on above: Performed By: #### BNP, BMP, CBC ####[address] [address] USAGlucose [Mass/Vol]93 mg/bVXxokzo04-478Trw Counts Include [address] [facility] Physician GroupComment on above:Result Comment: Random Glucose Reference Range is dependent on time and content of last meal. Glucose of more than 200 mg/dL in a nonstressed, ambulatory subject supports the diagnosis of Diabetes Mellitus. ADA recommended reference rangePerformed By: #### BNP, BMP, CBC ####[place] [id number] USAPotassium [Moles/Vol] 3.6 mmol/LNormal3.5-5.1The Counts Include [address] [facility] Physician GroupComment on above:Performed By: #### BNP, BMP, CBC ####[place] [address] USASodium [Moles/Vol]139 mmol/MQtielf189-651Vmy Counts Include [address] [facility] Physician GroupComment on above:Performed By: #### BNP, BMP, CBC ####[place] [address] USAUrea nitrogen [Mass/Vol]94 mg/dLHigh7-25The Counts Include [address] [facility] Physician GroupComment on above:Performed By: #### BNP, BMP, CBC ####[place] [address] USAComplete Blood Count Auto Diffon 06-02-2024 Basophils (Bld) [#/Vol]0.0 10*3/uLNormal0.0-0.2The Counts Include [address] [facility] Comment on above:Result Comment: PERFORMED BY:[address]ETGaloBLOOMINGDALE, [place] [phone] MEDICAL DIRECTORLLOYD NICHOLSON M.D.Performed By: #### BNP, BMP, CBC ####[address] Basophils/100 WBC (Bld)0.9 %Normal.The Counts Include [address] [facility] Physician GroupComment on above:Performed By: #### BNP, BMP, CBC ####[place] [id number] USAEosinophils (Bld) [#/Vol]0.4 10*3/uLNormal 0.0-0.45The Counts Include [address] [facility] Physician [facility] HospitalComment on above:Performed By: #### BNP, BMP, CBC ####[place] [id number] USAEosinophils/100 WBC (Bld)6.2 %Normal.The Counts Include [address] [facility] Physician GroupComment on above:Performed By: #### BNP, BMP, CBC ####[place] [address] USAErythrocyte distribution width (RBC) [Ratio] 14.0 %Qoreda08.9-15.3The Counts Include [address] [facility] Physician GroupComment on above:Performed By: #### BNP, BMP, CBC ####[place] [address] USAHematocrit (Bld) [Volume fraction]28.1 %Low34.0-46.4The Counts Include [address] [facility] Physician GroupComment on above:Performed By: #### BNP, BMP, CBC ####[place] [address] USAHemoglobin (Bld) [Mass/Vol]9.2 g/dLLow11.8-15.4The Counts Include [address] [facility] Physician GroupComment on above: Performed By: #### BNP, BMP, CBC ####[place] [address] USALymphocytes (Bld) [#/Vol]1.2 10*3/uLNormal1.00-4.8 The Counts Include [address] [facility] Physician GroupComment on above:Performed By: #### BNP, BMP, CBC ####[place] [address] [place] Lymphocytes/100 WBC (Bld)20.3 %Normal.The Counts Include [address] [facility] Physician GroupComment on above:Performed By: #### BNP, BMP, CBC ####[place] [address] USAMCH (RBC) [Entitic mass]28.0 xmJutouw80.7-34.3 The Counts Include [address] [facility] Physician GroupComment on above:Performed By: #### BNP, BMP, CBC ####[place] [address] USAMCV (RBC) [Entitic vol]85.8 pWYcnmct79-200Dwv Counts Include [address] [facility] Physician GroupComment on above:Performed By: #### BNP, BMP, CBC ####[place] [address] USAMean Corpuscular HGB Conc32.7 g/dLNormal 32.0-35.0The Counts Include [address] [facility] Physician GroupComment on above:Performed By: #### BNP, BMP, CBC ####[place] [address] USAMonocytes (Bld) [#/Vol]0.9 10*3/uLHigh0.0-0.8The Counts Include [address] [facility] Comment on above:Performed By: #### BNP, BMP, CBC ####[place] [address] USAMonocytes/100 WBC (Bld)15.4 %Normal. The Counts Include [address] [facility] Physician GroupComment on above:Performed By: #### BNP, BMP, CBC ####[place] [address] [place] Neutrophils (Bld) [#/Vol]3.2 10*3/uLNormal1.8-7.7The Counts Include [address] [facility] Comment on above:Performed By: #### BNP, BMP, CBC ####[place] [address] USANeutrophils/100 WBC (Bld)57.2 %Normal .The Counts Include [address] [facility] Physician GroupComment on above:Performed By: #### BNP, BMP, CBC ####[place] [address] USANRBC% 0.1 /100{WBC}Normal0-0.5The Counts Include [address] [facility] Physician GroupComment on above:Performed By: #### BNP, BMP, CBC ####[place] [address] USAPlatelet mean volume (Bld) [Entitic vol]8.3 fLNormal 6.3-10.7The Counts Include [address] [facility] Physician GroupComment on above:Performed By: #### BNP, BMP, CBC ####[place] [address] USAPlatelets (Bld) [#/Vol]239 10*3/dVHgeqiq610-980Aco Counts Include [address] [facility] Comment on above:Performed By: #### BNP, BMP, CBC ####[facility] [id number] [place] [address] USARBC (Bld) [#/Vol]3.28 10*6/uLLow 3.60-5.00The Counts Include [address] [facility] Physician GroupComment on above:Performed By: #### BNP, BMP, CBC ####[facility] [address] [place] [address] USAWBC (Bld) [#/Vol]5.7 10*3/uLNormal3.8-11.6The Counts Include [address] [facility] Comment on above:Performed By: #### BNP, BMP, CBC ####[facility] [place] [address] USANatriuretic peptide B [Mass/Vol] Ordered By: Isaiah Mejia on 50-75-7938Chvigjmokxy peptide B (Bld) [Mass/Vol] BNP ser/plasHigh5-100[facility] HospitalAlanine aminotransferase [Enzymatic activity/volume] in Serum or PlasmaOrdered By: Regina Garcia on 68-03-2479LLY [Catalytic activity/Vol]Alanine aminotransferase [Enzymatic activity/volume] in Serum or Plasma7-52[facility] HospitalAlbumin [Mass/volume] in Serum or Plasma by Bromocresol green (BCG) dye binding metho Ordered By: Regina Garcia on 03-67-8496Lsabvji BCG dye [Mass/Vol]Albumin [Mass/volume] in Serum or Plasma by Bromocresol green (BCG) dye binding metho 3.5-5.7FCleveland Clinic Medina HospitalAlkaline phosphatase [Enzymatic activity/volume] in Serum or PlasmaOrdered By: Regina Garcia on 81-19-1777HMG [Catalytic activity/Vol]Alkaline phosphatase [Enzymatic activity/volume] in Serum or Zjvjur99-280DkywwvlhgHolmes County Joel Pomerene Memorial HospitalAppearance of UrineOrdered By: Regina Garcia on 85-47-9015Ghwpadswyk (U)Urine appearanceCleOhio Valley Surgical HospitalAspartate aminotransferase [Enzymatic activity/volume] in Serum or PlasmaOrdered By: Regina Garcia on 71-98-3096YMG [Catalytic activity/Vol]Aspartate aminotransferase [Enzymatic activity/volume] in Serum or Evecys39-38SfaiybmoeHolmes County Joel Pomerene Memorial HospitalBasophils Auto (Bld) [#/Vol]Ordered By: Regina Garcia on 71-31-7002Mlwsafrah (Bld) [#/Vol]Automated basophil count 0.0-0.2FCleveland Clinic Medina HospitalBasophils/100 WBC Auto (Bld)Ordered By: Regina Garcia on 85-12-8475Gzgcffpxf/100 WBC (Bld)Automated basophil %. [facility] HospitalBilirubin Test strip Ql (U)Ordered By: Regina Garcia on 18-12-2408Utzvfdqou Ql (U)Bilirubin.total [Presence] in Urine by Test stripNegativeHolmes County Joel Pomerene Memorial HospitalBilirubin.total [Mass/volume] in Serum or PlasmaOrdered By: Regina Garcia on 06-01-2024 Bilirubin [Mass/Vol]Bilirubin.total [Mass/volume] in Serum or Plasma0.3-1.0 [facility] HospitalCT head/brain wo conon 52-74-9434DS head/brain wo conNormalThe Counts Include [facility] Physician GroupCalcium [Mass/volume] in Serum or PlasmaOrdered By: Regina Garcia on 90-81-9483Qifgkmt [Mass/Vol]Calcium [Mass/volume] in Serum or Plasma8.6-10.3FCleveland Clinic Medina HospitalCarbon dioxide, total [Moles/volume] in Serum or PlasmaOrdered By: Regina Garcia on 51-09-7824NG9 [Moles/Vol]Carbon dioxide, total [Moles/volume] in Serum or Plasma High21.0-31.0[facility] HospitalChloride [Moles/volume] in Serum or PlasmaOrdered By: Regina Garcia on 11-22-2646Gywddkom [Moles/Vol]Chloride [Moles/volume] in Serum or PgzaeeWdp59-182LmztweyleHolmes County Joel Pomerene Memorial HospitalColor Auto (U)Ordered By: Regina Garcia on 98-81-5704Bicve (U)Color of Urine by AutoYellowHolmes County Joel Pomerene Memorial HospitalComplete Blood Count Auto Diffon 32-59-0512Vbpiajbuj (Bld) [#/Vol]0.0 10*3/uLNormal0.0-0.2The Counts Include [facility] Physician GroupComment on above:Result Comment: PERFORMED BY:[address] [place], [place] [phone] MEDICAL DIRECTORLLOYD NICHOLSON M.D.Performed By: #### CMP, PT, HS TROP, PTT, TSH3, CBC, MG ####[place] [id number] USABasophils/100 WBC (Bld)0.5 %Normal.The Counts Include [address] [facility] Physician GroupComment on above:Performed By: #### CMP, PT, HS TROP, PTT, TSH3, CBC, MG ####[address] [address] USAEosinophils (Bld) [#/Vol]0.2 10*3/uLNormal0.0-0.45The Counts Include [address] [facility] Physician GroupComment on above: Performed By: #### CMP, PT, HS TROP, PTT, TSH3, CBC, MG ####[place] [id number] USAEosinophils/100 WBC (Bld)2.3 % Normal.The Counts Include [address] [facility] Physician GroupComment on above:Performed By: #### CMP, PT, HS TROP, PTT, TSH3, CBC, MG ####[place] [id number] USAErythrocyte distribution width (RBC) [Ratio]14.2 % Fbvcdp42.9-15.3The Counts Include [address] [facility] Physician GroupComment on above:Performed By: #### CMP, PT, HS TROP, PTT, TSH3, CBC, MG ####[place] [id number] USAHematocrit (Bld) [Volume fraction]31.8 %Low 34.0-46.4The Counts Include [address] [facility] Physician GroupComment on above:Performed By: #### CMP, PT, HS TROP, PTT, TSH3, CBC, MG ####[place] [address] USAHemoglobin (Bld) [Mass/Vol]10.5 g/dLLow11.8-15.4The Counts Include [address] [facility] Physician GroupComment on above:Performed By: #### CMP, PT, HS TROP, PTT, TSH3, CBC, MG ####[place] [address] USALymphocytes (Bld) [#/Vol]1.0 10*3/uLNormal1.00-4.8The Counts Include [address] [facility] Physician GroupComment on above:Performed By: #### CMP, PT, HS TROP, PTT, TSH3, CBC, MG ####[place] [address] USALymphocytes/100 WBC (Bld)10.3 %Normal.The Counts Include [address] [facility] Physician GroupComment on above:Performed By: #### CMP, PT, HS TROP, PTT, TSH3, CBC, MG ####[address]H (RBC) [Entitic mass]28.1 rgHspcdn92.7-34.3The Counts Include [address] [facility] Physician GroupComment on above: Performed By: #### CMP, PT, HS TROP, PTT, TSH3, CBC, MG ####[address]V (RBC) [Entitic vol]85.4 fL Kuytlq11-707Mws Counts Include [address] [facility] Physician GroupComment on above:Performed By: #### CMP, PT, HS TROP, PTT, TSH3, CBC, MG ####[place] [address] USAMean Corpuscular HGB Conc33.0 g/dLNormal 32.0-35.0The Counts Include [address] [facility] Physician GroupComment on above:Performed By: #### CMP, PT, HS TROP, PTT, TSH3, CBC, MG ####[place] [address] USAMonocytes (Bld) [#/Vol]0.7 10*3/uLNormal0.0-0.8The Counts Include [address] [facility] Physician GroupComment on above:Performed By: #### CMP, PT, HS TROP, PTT, TSH3, CBC, MG ####[place] [id number] USAMonocytes/100 WBC (Bld)16.46 %Normal0.00-20.00The Counts Include [address] [facility] Physician GroupComment on above:Performed By: #### CMP, PT, HS TROP, PTT, TSH3, CBC, MG ####[place] [id number] USAMonocytes/100 WBC (Bld)7.2 %Normal.The Counts Include [address] [facility] Physician GroupComment on above:Performed By: #### CMP, PT, HS TROP, PTT, TSH3, CBC, MG ####[place] [address] USANeutrophils (Bld) [#/Vol]7.5 10*3/uLNormal1.8-7.7The Counts Include [address] [facility] Physician GroupComment on above: Performed By: #### CMP, PT, HS TROP, PTT, TSH3, CBC, MG ####[place] [id number] USANeutrophils/100 WBC (Bld)79.7 %Normal.The Counts Include [address] [facility] Physician GroupComment on above:Performed By: #### CMP, PT, HS TROP, PTT, TSH3, CBC, MG ####[place] [id number] USANRBC%0.1 /100{WBC}Normal0-0.5The Counts Include [address] [facility] Physician GroupComment on above:Performed By: #### CMP, PT, HS TROP, PTT, TSH3, CBC, MG ####[place] [id number] [place] Platelet mean volume (Bld) [Entitic vol]8.7 fLNormal6.3-10.7The Counts Include [address] [facility] Physician GroupComment on above:Performed By: #### CMP, PT, HS TROP, PTT, TSH3, CBC, MG ####[place] [address] USAPlatelets (Bld) [#/Vol]319 10*3/zWIejfmg866-265Yod Counts Include [address] [facility] Comment on above:Performed By: #### CMP, PT, HS TROP, PTT, TSH3, CBC, MG ####[place] [address] USARBC (Bld) [#/Vol]3.72 10*6/uLNormal3.60-5.00The Counts Include [address] [facility] Physician GroupComment on above:Performed By: #### CMP, PT, HS TROP, PTT, TSH3, CBC, MG ####[place] [address] USAWBC (Bld) [#/Vol]9.4 10*3/uLNormal3.8-11.6The Counts Include [address] [facility] Physician GroupComment on above:Performed By: #### CMP, PT, HS TROP, PTT, TSH3, CBC, MG ####[place] [address] USAComprehensive Metabolic Panelon 80-56-7282Sbeibip [Mass/Vol]4.4 g/dLNormal3.5-5.7The Counts Include [address] [facility] Comment on above:Performed By: #### CMP, PT, HS TROP, PTT, TSH3, CBC, MG ####[address] Albumin/Globulin [Mass ratio]1.5 {ratio}NormalThe Counts Include [address] [facility] Comment on above:Performed By: #### CMP, PT, HS TROP, PTT, TSH3, CBC, MG ####[place] [address] USAALP [Catalytic activity/Vol]53 U/WKjejwl47-871Sgd Counts Include [address] [facility] Physician GroupComment on above:Performed By: #### CMP, PT, HS TROP, PTT, TSH3, CBC, MG ####[place] [address] USAALT [Catalytic activity/Vol]16 U/LNormal7-52The Counts Include [address] [facility] Physician GroupComment on above: Performed By: #### CMP, PT, HS TROP, PTT, TSH3, CBC, MG ####[place] [address] USAAnion gap [Moles/Vol]14.8 mmol/LNormal6.0-15.0The Counts Include [address] [facility] Physician GroupComment on above:Performed By: #### CMP, PT, HS TROP, PTT, TSH3, CBC, MG ####[place] [address] USAAST [Catalytic activity/Vol]22 U/DJhioaq45-29 The Counts Include [address] [facility] Physician GroupComment on above:Performed By: #### CMP, PT, HS TROP, PTT, TSH3, CBC, MG ####[place] [address] USABilirubin [Mass/Vol]0.6 mg/dLNormal0.3-1.0The Counts Include [address] [facility] Physician GroupComment on above:Performed By: #### CMP, PT, HS TROP, PTT, TSH3, CBC, MG ####[place] [address] USACalcium [Mass/Vol]10.2 mg/dLNormal8.6-10.3The Counts Include [address] [facility] Physician GroupComment on above:Performed By: #### CMP, PT, HS TROP, PTT, TSH3, CBC, MG ####[place] [address] [place] Chloride [Moles/Vol]94 mmol/UOjr74-517Etz Counts Include [address] [facility] Physician GroupComment on above:Performed By: #### CMP, PT, HS TROP, PTT, TSH3, CBC, MG ####[place] [address] USACO2 [Moles/Vol]33.2 mmol/LHigh21.0-31.0The Counts Include [address] [facility] Physician GroupComment on above:Performed By: #### CMP, PT, HS TROP, PTT, TSH3, CBC, MG ####[place] [address] USACreatinine [Mass/Vol]3.04 mg/dLHigh0.60-1.20 The Counts Include [address] [facility] Physician GroupComment on above:Performed By: #### CMP, PT, HS TROP, PTT, TSH3, CBC, MG ####[place] [address] [place] [address] USACreatinine Clr Calc Pmoohgui83.91NoFormerly [facility] Physician GroupComment on above:Performed By: #### CMP, PT, HS TROP, PTT, TSH3, CBC, MG ####[place] [address] [place] [address] USAEstimated GFR15.569 mL/MinNoFormerly [facility] Physician [facility] HospitalComment on above:Performed By: #### CMP, PT, HS TROP, PTT, TSH3, CBC, MG ####[place] [address] [place] [address] USAGlobulin (S) [Mass/Vol]3.0 g/dLNoFormerly [facility] Physician GroupComment on above:Performed By: #### CMP, PT, HS TROP, PTT, TSH3, CBC, MG ####[place] [address] USAGlucose [Mass/Vol]115 mg/zJKjwr83-788 The Counts Include [address] [facility] Physician GroupComment on above:Result Comment: Random Glucose Reference Range is dependent on time and content of last meal. Glucose of more than 200 mg/dL in a nonstressed, ambulatory subject supports the diagnosis of Diabetes Mellitus. ADA recommended reference rangePerformed By: #### CMP, PT, HS TROP, PTT, TSH3, CBC, MG ####[place] [address] USAPotassium [Moles/Vol]4.0 mmol/LNormal3.5-5.1The Counts Include [address] [facility] Physician GroupComment on above:Performed By: #### CMP, PT, HS TROP, PTT, TSH3, CBC, MG ####[place] [address] USAProtein [Mass/Vol]7.4 g/dLNormal6.4-8.9The Counts Include [address] [facility] Comment on above:Performed By: #### CMP, PT, HS TROP, PTT, TSH3, CBC, MG ####[facility] [place] [address] USASodium [Moles/Vol]138 mmol/ZYcaitc543-653Dro Counts Include [address] [facility] Physician [facility] HospitalComment on above: Performed By: #### CMP, PT, HS TROP, PTT, TSH3, CBC, MG ####[facility] [place] [address] USAUrea nitrogen [Mass/Vol]111 mg/dLHigh7-25The Counts Include [address] [facility] Physician GroupComment on above:Performed By: #### CMP, PT, HS TROP, PTT, TSH3, CBC, MG ####[place] [address] [place] [address] USACreatinine [Mass/volume] in Serum or Plasma Ordered By: Regina Garcia on 66-82-5114Wvzoecjmyq [Mass/Vol]Creatinine [Mass/volume] in Serum or PlasmaHigh0.60-1.20[facility] Creatinine [Mass/volume] in UrineOrdered By: Isaiah Mejia on 06-01-2024 Creatinine (U) [Mass/Vol]Creatinine [Mass/volume] in UrineHolmes County Joel Pomerene Memorial HospitalComment on above:No reference range establishedCreatinine, Urine (Random)on 13-97-7276Tercmaprdw, Urine (Random)41.00 mg/dLMorton Plant [facility] Physician [facility] HospitalComment on above:Order Comment: Comment ADD ON to today's UA Result Comment: No reference range establishedPERFORMED BY:[address] [place], [place] [phone] MEDICAL DIRECTORLLOYD NICHOLSON M.D.Performed By: #### KEVIN GIRON ####[place] [address] [place] [address] USAECG 12 lead ECGon 32-11-0993EHN 12 lead ECGNoAdena Regional Medical Center GroupEosinophils Auto (Bld) [#/Vol]Ordered By: Regina Garcia on 22-50-7321Azvmhiwewns (Bld) [#/Vol] Automated eosinophil count0.0-0.45[facility] Eosinophils/100 WBC Auto (Bld)Ordered By: Regina Garcia on 06-01-2024 Eosinophils/100 WBC (Bld)Automated eosinophil %.[facility] HospitalErythrocyte distribution width Auto (RBC) [Ratio]Ordered By: Regina Garcia on 03-79-9204Fziimahsppi distribution width (RBC) [Ratio]Erythrocyte distribution width [Ratio] by Automated count11.9-15.3FCleveland Clinic Medina HospitalGlobulin Calc (S) [Mass/Vol]Ordered By: Regina Garcia on 06-01-2024 Globulin (S) [Mass/Vol]Serum globulin measurement by calculation (mass/volume) [facility] HospitalGlucose [Mass/volume] in Serum or PlasmaOrdered By: Regina Garcia on 98-46-1004Ueezuyb [Mass/Vol]Glucose [Mass/volume] in Serum or TueruyRsrb57-816DqxjdcxzlHolmes County Joel Pomerene Memorial HospitalComment on above:ADA recommended reference rangeRandom Glucose Reference Range is dependent on time and content of last meal. Glucose of more than 200 mg/dL in a nonstressed, ambulatory subject supports the diagnosisof Diabetes Mellitus.Glucose [Mass/volume] in Urine by Test stripOrdered By: Regina Garcia on 06-01-2024 Glucose Test strip (U) [Mass/Vol]Glucose [Mass/volume] in Urine by Test strip NormalHolmes County Joel Pomerene Memorial HospitalHematocrit Auto (Bld) [Volume fraction] Ordered By: Regina Garcia on 06-64-5552Cvyupucoze (Bld) [Volume fraction] Hematocrit [Volume Fraction] of Blood by Automated jdklpDuc49.0-46.4FCleveland Clinic Medina HospitalHemoglobin Test strip Ql (U)Ordered By: Regina Garcia on 11-14-7455Nltnldyvoe Ql (U)Hemoglobin [Presence] in Urine by Test strip NegativeHolmes County Joel Pomerene Memorial HospitalHemoglobin [Mass/volume] in Blood Ordered By: Regina Garcia on 16-50-3415Btqutkhdbn (Bld) [Mass/Vol]Hemoglobin [Mass/volume] in TfutcDwt97.8-15.4FCleveland Clinic Medina HospitalINR in Platelet poor plasma by Coagulation assayOrdered By: Regina Garcia on 83-21-7537XMA Coag (PPP) [Relative time]INR in Platelet poor plasma by Coagulation assayHolmes County Joel Pomerene Memorial HospitalComment on above:INR Therapeutic Range A) Pre- and Peroperative OAT started two weeks before surgery. NOT HIP SURGERY: 1.5 - 2.5 HIP SURGERY: 2 - 3B) Primary and secondary prevention of venous THROMBOSIS: 2 - 3C) Active venous thrombosis, pulmonary embolismand prevention of recurrent venous thrombosis: 2 - 3D) Prevention of arterial thromboembolismincluding patients with mechanical heart valves: 3 - 4.5Ketones Test strip Ql (U)Ordered By: Regina Garcia on 05-52-0288Rtxzscn Ql (U)Ketones [Presence] in Urine by Test stripNegBethesda North Hospital Leukocyte esterase [Presence] in Urine by Test stripOrdered By: Regina Garcia on 92-70-9328Adgnhxlyq esterase Test strip Ql (U)Leukocyte esterase [Presence] in Urine by Test stripNegBethesda North HospitalLeukocytes [#/volume] corrected for nucleated erythrocytes in Blood by Automated coun Ordered By: Regina Garcia on 59-61-0310KMK corrected for nucl RBC Auto (Bld) [#/Vol]Leukocytes [#/volume] corrected for nucleated erythrocytes in Blood by Automated coun3.8-11.6FCleveland Clinic Medina HospitalLymphocytes Auto (Bld) [#/Vol]Ordered By: Regina Garcia on 35-05-7171Ajqhgpvklrq (Bld) [#/Vol] Lymphocytes [#/volume] in Blood by Automated count1.00-4.8[facility] HospitalLymphocytes/100 WBC Auto (Bld)Ordered By: Regina Garcia on 45-63-0934Licacseoprl/100 WBC (Bld)Lymphocytes/100 leukocytes in Blood by Automated count.[facility] HospitalH Auto (RBC) [Entitic mass] Ordered By: Regina Garcia on 57-68-7250DTC (RBC) [Entitic mass]MCH [Entitic mass] by Automated count24.7-34.3FBethesda North HospitalHC Auto (RBC) [Mass/Vol]Ordered By: Regina Garcia on 83-43-4521HUQV (RBC) [Mass/Vol] MCHC [Mass/volume] by Automated count32.0-35.0[facility] MCV Auto (RBC) [Entitic vol]Ordered By: Regina Garcia on 10-38-4443JNO (RBC) [Entitic vol]MCV [Entitic volume] by Automated apkvo76-810VcgsgljkjHolmes County Joel Pomerene Memorial HospitalMagnesiumon 28-51-3564Wkrzscwsp [Mass/Vol]3.3 mg/dLHigh1.9-2.7The Counts Include [address] [facility] Physician GroupComment on above:Performed By: #### CMP, PT, HS TROP, PTT, TSH3, CBC, MG ####[facility] [address] [place] [address] USAMagnesium [Mass/volume] in Serum or PlasmaOrdered By: Regina Garcia on 61-90-2709Kgfoihkme [Mass/Vol]Magnesium [Mass/volume] in Serum or PlasmaHigh1.9-2.7FCleveland Clinic Medina HospitalMonocyte distribution width [Entitic volume] in Blood by AutomatedOrdered By: Regina Garcia on 06-01-2024 Monocyte distribution width Auto (Bld) [Entitic vol]Monocyte distribution width [Entitic volume] in Blood by Automated0.00-20.00[facility] HospitalMonocytes Auto (Bld) [#/Vol]Ordered By: Regina Garcia on 06-01-2024 Monocytes (Bld) [#/Vol]Automated blood monocyte count0.0-0.8[facility] HospitalMonocytes/100 WBC Auto (Bld)Ordered By: Regina Garcia on 38-47-7778Yfjdwprlr/100 WBC (Bld)Automated monocyte %.[facility] HospitalNeutrophils Auto (Bld) [#/Vol]Ordered By: Regina Garcia on 06-01-2024 Neutrophils (Bld) [#/Vol]Neutrophils [#/volume] in Blood by Automated count 1.8-7.7FCleveland Clinic Medina HospitalNeutrophils/100 WBC Auto (Bld)Ordered By: Regina Garcia on 34-86-7867Zasotvmwubl/100 WBC (Bld)Automated neutrophil % .[facility] HospitalNitrite Test strip Ql (U)Ordered By: Regina Garcia on 92-94-6157Qdpldwz Ql (U)Nitrite [Presence] in Urine by Test strip NegativeHolmes County Joel Pomerene Memorial HospitalNo Panel InformationOrdered By: Regina Garcia on 46-93-0936Lrkwlexoj GFR (CKD-EPI)15.569 mL/MinHolmes County Joel Pomerene Memorial HospitalPharmacy Creatinine Clearance (Chem14.91[facility] HospitalNucleated erythrocytes [Presence] in Blood by Automated countOrdered By: Regina Garcia on 00-10-1726Mdgenvxtg RBC Auto Ql (Bld) Nucleated erythrocytes [Presence] in Blood by Automated count0-0.5FCleveland Clinic Medina HospitalPartial Thromboplastin Timeon 00-25-9380fVXQ Coag (Bld) [Time]29.9 uQsygks53.1-36.5The Counts Include [address] [facility] Physician GroupComment on above:Result Comment: A hematocrit value greater than 55% may lead to inaccurate results in coagulation testing. Patients having hematocrit values >55% require a special collection tube for coagulation studies. Please contact the laboratory at [phone] for redraw instructions.PERFORMED BY:[facility] [place], [place] [phone] MEDICAL DIRECTORLLOYD NICHOLSON M.D.Performed By: #### CMP, PT, HS TROP, PTT, TSH3, CBC, MG ####[facility] [place] [address] USAPlatelet mean volume Auto (Bld) [Entitic vol]Ordered By: Regina Garcia on 36-42-6981Upitiaif mean volume (Bld) [Entitic vol]Platelet mean volume [Entitic volume] in Blood by Automated count6.3-10.7FCleveland Clinic Medina HospitalPlatelets Auto (Bld) [#/Vol]Ordered By: Regina Garcia on 06-01-2024 Platelets (Bld) [#/Vol]Platelets [#/volume] in Blood by Automated tefvg803-545 [facility] HospitalPotassium [Moles/volume] in Serum or Plasma Ordered By: Regina Garcia on 79-54-3763Lgnupunzx [Moles/Vol]Potassium [Moles/volume] in Serum or Plasma3.5-5.1FCleveland Clinic Medina HospitalProtein Test strip (U) [Mass/Vol]Ordered By: Regina Garcia on 00-37-3946Rbzgsfe (U) [Mass/Vol]Protein [Mass/volume] in Urine by Test stripNegativeHolmes County Joel Pomerene Memorial HospitalProtein [Mass/volume] in Serum or PlasmaOrdered By: Regina Garcia on 59-49-0349Eeokzsu [Mass/Vol]Protein [Mass/volume] in Serum or Plasma 6.4-8.9[facility] HospitalProthrombin Time INRon 69-90-5827NJK Coag (PPP) [Relative time]0.9 {INR}NormalThe Counts Include [address] [facility] Physician GroupComment on above:Result Comment: INR Therapeutic Range A) Pre- and Peroperative OAT started two weeks before surgery. NOT HIP SURGERY: 1.5 - 2.5 HIP SURGERY: 2 - 3 B) Primary and secondary prevention of venous THROMBOSIS: 2 - 3 C) Active venous thrombosis, pulmonary embolism and prevention of recurrent venous thrombosis: 2 - 3 D) Prevention of arterial thromboembolism including patients with mechanical heart valves: 3 - 4.5Performed By: #### CMP, PT, HS TROP, PTT, TSH3, CBC, MG ####[facility] [address] [place] [address] USAPT Coag (PPP) [Time]10.3 sNormal9.0-12.9The Counts Include [address] Physician [facility] HospitalComment on above: Result Comment: A hematocrit value greater than 55% may lead to inaccurate results in coagulation testing. Patients having hematocrit values >55% require a special collection tube for coagulation studies. Please contact the laboratory at [phone] for redraw instructions.Performed By: #### CMP, PT, HS TROP, PTT, TSH3, CBC, MG ####[facility] [address] [place] [address] USAProthrombin time (PT)Ordered By: Regina Garcia on 10-46-4582GT Coag (PPP) [Time]Prothrombin time (PT)9.0-12.9[facility] Comment on above:A hematocrit value greater than 55% may lead to inaccurate results in coagulation testing. Patientshaving hematocrit values >55% require a special collection tube for coagulation studies. Please contact the laboratory at [phone] for redraw instructions.RBC Auto (Bld) [#/Vol]Ordered By: Regina Garcia on 05-13-1755WRX (Bld) [#/Vol]Erythrocytes [#/volume] in Blood by Automated count3.60-5.00[facility] Lutheran Hospitalerum or plasma albumin/globulin mass ratioOrdered By: Regina Garcia on 06-01-2024 Albumin/Globulin [Mass ratio]Serum or plasma albumin/globulin mass ratio [facility] Hospitalerum or plasma anion gap determinationOrdered By: Regina Garcia on 22-19-4587Qlqib gap [Moles/Vol]Serum or plasma anion gap determination6.0-15.0[facility] Hospitalodium [Moles/volume] in Serum or PlasmaOrdered By: Regina Garcia on 59-49-9070Jcfmdm [Moles/Vol]Sodium [Moles/volume] in Serum or Rxcivz712-811RscxairbwCleveland Clinic Lutheran Hospitalodium [Moles/volume] in UrineOrdered By: Isaiah Mejia on 19-42-6546Dokoug (U) [Moles/Vol]Sodium [Moles/volume] in UrineHolmes County Joel Pomerene Memorial Hospital Comment on above:No reference range establishedSodium, Urineon 27-09-7507Whdfdw (U) [Moles/Vol]60.0 mmol/LNormalThe Counts Include [address] [facility] Physician GroupComment on above: Order Comment: Comment ADD ON to today's UAResult Comment: No reference range establishedPerformed By: #### KEVIN GIRON ####[facility] Hinojosasandhills regional [place] [address] USASpecific gravity Test strip (U) [Rel density] Ordered By: Regina Garcia on 60-37-8966Uxgvhkzn gravity (U) [Rel density] Specific gravity of Urine by Test strip1.001-1.030[facility] HospitalThyroid Stimulating Hormoneon 23-59-0982SIZ Qn5.13 m[IU]/LNormal0.45-5.33 The Counts Include [address] [facility] Physician GroupComment on above:Result Comment: PERFORMED BY:[address] [phone] MEDICAL DIRECTORLLOYD NICHOLSON M.D.Performed By: #### CMP, PT, HS TROP, PTT, TSH3, CBC, MG ####[address] [place] [address] USAThyrotropin [Units/volume] in Serum or Plasma Ordered By: Regina Garcia on 70-86-5271WQX QnThyrotropin [Units/volume] in Serum or Plasma0.45-5.33[facility] HospitalTroponin I High Sensitivityon 11-12-8884Vipxjkrw I High Zkwhkvggfqx94Cbehax6-72Edo Counts Include [facility] Physician GroupComment on above:Result Comment: The Troponin units of report have been changed to meet the Chest Pain Accreditationrequirement, element EC5.M1l2. Troponin units are changed from pg/ml to ng/L. Also, the decimal is r emoved and results are in whole numbers.PERFORMED BY:[address] [place], [place] [phone] MEDICAL DIRECTORLLOYD NICHOLSON M.D.Performed By: #### CMP, PT, HS TROP, PTT, TSH3, CBC, MG ####[address] [address] USATroponin I.cardiac [Mass/volume] in Serum or Plasma by Detection limit <= 0.01 ng/Ordered By: Regina Garcia on 10-37-1593Eeibjsec I.cardiac DL <= 0.01 ng/mL [Mass/Vol]Troponin I.cardiac [Mass/volume] in Serum or Plasma by Detection limit <= 0.01 ng/0-15[facility] HospitalComment on above:The Troponin units of report have been changed to meet the Chest Pain Accreditation requirement, element EC5.M1l2. Troponin units are changed from pg/ml to ng/L. Also, the decimal is removed and results are in whole numbers. Urea nitrogen [Mass/volume] in Serum or PlasmaOrdered By: Regina Garcia on 31-29-2392Birb nitrogen [Mass/Vol]Urea nitrogen [Mass/volume] in Serum or Plasma [address] Best StreetUrinalysison 27-88-7097Ddpqsdqvwh (U) ClearNormalClearThe Counts Include [facility] Physician GroupComment on above:Order Comment: Name Collection Type:: Clean-Voided MidstreamPerformed By: #### UA ####[address] [address] USABilirubin,Urine NegativeNormalNegativePhysicians Regional [facility] Physician GroupComment on above:Order Comment: Name Collection Type:: Clean-Voided MidstreamPerformed By: #### UA ####[address] [address] USAColor (U)Light-YellowNormalYellowPhysicians Regional Medical Center [facility] Physician GroupComment on above:Order Comment: Name Collection Type:: Clean-Voided MidstreamPerformed By: #### UA ####[address] [address] USAGlucose Ql (U)NormalNormalNormalThCaribou Memorial Hospital Physician GroupComment on above:Order Comment: Name Collection Type:: Clean-Voided MidstreamPerformed By: #### UA ####[address] [address] USAKetones Ql (U)NegativeNormalNegativePhysicians [facility] Physician GroupComment on above:Order Comment: Name Collection Type:: Clean-Voided MidstreamPerformed By: #### UA ####[address] [address] [place] Leukocyte esterase Test strip Ql (U)NegativeNormalNegativePhysicians [facility] Physician GroupComment on above:Order Comment: Name Collection Type:: Clean- Voided MidstreamPerformed By: #### UA ####[address] [address] USANitrite,UrineNegativeNormalNegativePhysicians [facility] Physician GroupComment on above:Order Comment: Name Collection Type:: Clean-Voided MidstreamPerformed By: #### UA ####[address] [address] USAOccult Blood,UrineNegativeNormal NegativeThe Counts Include 234 [facility] Physician GroupComment on above:Order Comment: Name Collection Type:: Clean-Voided MidstreamResult Comment: PERFORMED BY:[place] [address] [place], [place] [phone] MEDICAL DIRECTORMOGABRIELA NICHOLSON M.D.Performed By: #### UA ####[address] [address] USApH (U)6.5 [pH]Normal 5.0-9.0The Counts Include [address] [facility] Physician GroupComment on above:Order Comment: Name Collection Type:: Clean-Voided MidstreamPerformed By: #### UA ####[address] [address] USAProtein,UrineNegative NormalNegativeThe Counts Include 234 [facility] Physician GroupComment on above:Order Comment: Name Collection Type:: Clean-Voided MidstreamPerformed By: #### UA ####[address] [address] USASpecificy [place],Urine1.126Epyidb8.001-1.030The Counts Include [address] [facility] Physician GroupComment on above:Order Comment: Name Collection Type:: Clean-Voided MidstreamPerformed By: #### UA ####[address] [address] USAUrobilinogen,UrineNormalNormalNormalThe Counts Include [address] [facility] Physician GroupComment on above:Order Comment: Name Collection Type:: Clean-Voided MidstreamPerformed By: #### UA ####[address] [address] USAUrobilinogen Test strip (U) [Mass/Vol]Ordered By: Regina Garcia on 00-52-9446Zohifzsngqre (U) [Mass/Vol]Urobilinogen [Mass/volume] in Urine by Test stripNoMain Campus Medical CenterWBC Auto (Bld) [#/Vol]Ordered By: Regina Garcia on 82-31-6389RTW (Bld) [#/Vol]Leukocytes [#/volume] in Blood by Automated count3.8-11.6FCleveland Clinic Medina HospitalX-ray reportOrdered By: Saman Vo on 55-17-2422Bnfln reportPREMIER HEALTH [facility]PP[facility] Main [place] [address] [place] [address] XRay Report Signed with Addjocelin Patient: Renuka Owen MR#: [id number] : 1950 Acct:[id number] Age/Sex: 73 / F ADM Date: 5 Loc: ER Room: Type: [facility] ER Attending Dr: Copies to: Regina Garcia DO~ Ordering Provider: Regina Garcia DO Date of Service: 06/01/24 XR/XR tibia/fibula BI: Fall ([id number]) CT/CT cervical spine wo con: fall ([id number]) XR/XR chest 1V: Fall ([id number]) XR/XR knee LT 2V: Fall ADDENDUM 1 CT CERVICAL SPINE WITHOUT CONTRAST WITH 3D RECONSTRUCTIONS: CLINICAL HISTORY: Multiple falls. COMPARISON: None TECHNIQUE: Spiral axial unenhanced images were obtained through the cervical spine. Sagittal, coronal and 3D volume-rendered reconstructions were also reviewed. This CT exam was performed using one or more following dose reductiontechniques: Automated exposure control, adjustment of the mA and/or kV accordingto patient size, or use of iterative reconstruction technique. FINDINGS: No fracture. Moderate diffuse spondylosis with endplate, uncovertebral and facet joint degenerative changes as well as 2 mm of anterior subluxation of C3 on C4 and C4 on C5. No prevertebralsoft tissue swelling. Visualized lung apices demonstrate biapical scarring. Addendum Dictated By: Saman Vo Jr, DO Addendum Signed By: 06/01/241315 Addendum Cosigned By: DD/ TD/TT: 06/01/24 ADDENDUM 1 XR/XR chest 1V IMPRESSION: NO CERVICAL SPINE FRACTURE Impression dictated by: Saman Vo Jr., D.O.06/01/2024 1:16 PM Dictation Location: [place] [address] Addendum Dictated By: Saman Vo Jr, DO Addendum Signed By: 06/01/241315 Addendum Cosigned By: DD/ TD/TT: 06/01/24 Single view chest: , Left knee 2 views, bilateral tib-fib series 2 views each CLINICAL HISTORY: Fall. Bruising anterior tib-fib. COMPARISON: Chest 04/07/2024 FINDINGS: Chest: Heart normal in size. Chronic appearing interstitial changes. No consolidation pneumothorax pleural effusion or free air. Left knee: Left TKA without radiographic complication or acute bony process. Small joint effusion. Right tib-fib: Partially visualized right TKA without radiographic complication. Remote deformity involving the mid fibula suggestive of prior fracture. Ankle mortise appears intact. Soft tissue swelling is noted predominantly anteriorly. Left tib-fib: Mild soft tissue swelling primarily anteriorly with possible underlying hematoma. No acute bony process is seen. Ankle mortise appears intact. Plantar spurring. XR/XR chest 1V IMPRESSION: CHEST DEMONSTRATES CHRONIC INTERSTITIAL CHANGES WITHOUT ACUTE PROCESS. LEFT KNEE DEMONSTRATE TKA WITHOUT RADIOGRAPHIC COMPLICATION. TIB-FIB SERIES DEMONSTRATES ANTERIOR SOFT TISSUE SWELLING WITH POSSIBLE HEMATOMAANTERIORLY INVOLVING THE DISTAL SOFT TISSUES WITHOUT ACUTE BONY PROCESS. Impression dictated by: Saman Vo Jr., D.O.06/01/2024 1:12 PM Dictation Location: [place] [address] Transcribed By: [facility] 06/01/24 1312 Dictated By: Saman Vo Jr, DO 06/01/24 1309 Signed By: 06/01/24 1312 [facility] HospitalXR tibia/fibula BIon 37-93-3414TC tibia/fibula BINormalThe Counts Include [address] [facility] Physician GroupaPTT in Platelet poor plasma by Coagulation assayOrdered By: Regina Garcia on 14-46-2426oHID Coag (PPP) [Time]Activated partial thromboplastin time (aPTT) in platelet poor plasma by coagulation a 25.1-36.5FCleveland Clinic Medina HospitalComment on above:A hematocrit value greater than 55% may lead to inaccurate results in coagulation testing. Patients having hematocrit values >55% require a special collection tube for coagulation studies. Please contact the laboratory at [phone] for redraw instructions. pH Test strip (U)Ordered By: Regina Garcia on 57-70-4605sI (U)pH of Urine by Test strip5.0-9.0[facility] HospitalOphthalmic OCT panelon 61-84-6830NCMTSaint Mary's Health Center Eye Images reviewed and comparison made to baseline, Images reviewed. To assess optic nerve function and for use in future follow-up. Reliability: good and adequate. Left Eye Images reviewed and comparison made to baseline, Images reviewed. To assess optic nerve function and for use in future follow-up. Reliability: borderline. Notes Moderate nerve fiber layer (NFL) thinning left eye (OS). Stable right eye (OD). 90/70.On license of [facility] CenterRadiology Study observation (narrative)[facility] HospitalBasophils Auto (Bld) [#/Vol]on 15-15-7452Nuvclepiw (Bld) [#/Vol]Automated basophil count0.0-0.1FCleveland Clinic Medina Hospital Basophils/100 WBC Auto (Bld)on 08-43-2798Mhhgbwdxx/100 WBC (Bld)Automated basophil %0.2-2.0[facility] HospitalEosinophils/100 WBC Auto (Bld) on 94-52-5024Wydpdhbrsku/100 WBC (Bld)Automated eosinophil %0.9-7.0[facility] HospitalErythrocyte distribution width Auto (RBC) [Ratio]on 14-42-0977Eupzztgdgmf distribution width (RBC) [Ratio]Erythrocyte distribution width [Ratio] by Automated jpewaKosh43.0-15.0[facility] Estimated glomerular filtration rate (GFR) non- Americanon 04-17-2024 GFR/1.73 sq M.predicted among non-blacks MDRD (S/P/Bld) [Vol rate/Area]Estimated glomerular filtration rate (GFR) non- AmericanLow>=60 mL/min/1.73m 2 [facility] HospitalHematocrit Auto (Bld) [Volume fraction]on 12-38-3195Oymkazjkez (Bld) [Volume fraction]Hematocrit [Volume Fraction] of Blood by Automated acpkbMpo72.0-48.0[facility] HospitalHemoglobin [Mass/volume] in Bloodon 36-63-1440Dexdadmyjq (Bld) [Mass/Vol]Hemoglobin [Mass/volume] in IjpmoNrv27.0-16.0[facility] HospitalIron binding capacity [Mass/volume] in Serum or Plasmaon 68-70-7381Xckd binding capacity [Mass/Vol]Iron binding capacity [Mass/volume] in Serum or Lkrqrq906.0-450.0 [facility] HospitalIron saturation [Mass Fraction] in Serum or Plasmaon 58-07-1875Kfcf saturation [Mass fraction]Iron saturation [Mass Fraction] in Serum or PlasmaHolmes County Joel Pomerene Memorial HospitalLaboratory - Chemistry and Chemistry - challengeon 11-35-4476Tppujyi [Mass/Vol]8.9 mg/dL 8.5-10.1FCleveland Clinic Medina HospitalChloride [Moles/Vol]106 mmol/L98-107 [facility] HospitalCO2 [Moles/Vol]31.2 mmol/L21.0-32.0[facility] HospitalCobalamin (Vitamin B12) [Mass/Vol]376 pg/dL553-0233 [facility] HospitalComment on above:Performed at: [facility] [facility] [address] [id number] Director: Jerad Medina PhD, Phone: [phone] [Mass/Vol]1.27 mg/dLHigh0.55-1.02[facility] HospitalFerritin [Mass/Vol]74.0 ng/mL8.0-252.0[facility] HospitalGFR/1.73 sq M.predicted MDRD (S/P/Bld) [Vol rate/Area]50 mL/min/{1.73_m2} Low>=60 mL/min/1.73m 2FCleveland Clinic Medina HospitalGlucose [Mass/Vol]90 mg/rU42-589PoryoukzhHolmes County Joel Pomerene Memorial HospitalIron [Mass/Vol]97.0 ug/dL50.0-170.0 [facility] HospitalPotassium [Moles/Vol]4.5 mmol/L3.5-5.1FSt. Elizabeth Hospitalodium [Moles/Vol]144 mmol/M599-727JkgdwxqilHolmes County Joel Pomerene Memorial HospitalUrea nitrogen [Mass/Vol]20.0 mg/dLHigh7.0-18.0[facility] HospitalUrea nitrogen/Creatinine [Mass ratio]15.7 mg/mgHolmes County Joel Pomerene Memorial HospitalLaboratory - Hematology and Cell countson 94-09-0971[place] granulocytes/100 WBC (Bld)0.5 %0.0-0.5FCleveland Clinic Medina Hospital Leukocytes [#/volume] corrected for nucleated erythrocytes in Blood by Automated counon 88-40-4592OUY corrected for nucl RBC Auto (Bld) [#/Vol]Leukocytes [#/volume] corrected for nucleated erythrocytes in Blood by Automated coun 4.0-11.0[facility] HospitalLymphocytes Auto (Bld) [#/Vol]on 59-03-8099Chlvnotvvit (Bld) [#/Vol]Lymphocytes [#/volume] in Blood by Automated count1.2-3.8[facility] HospitalLymphocytes/100 WBC Auto (Bld)on 35-12-9528Azgqmczxgww/100 WBC (Bld)Lymphocytes/100 leukocytes in Blood by Automated count20.5-60.0[facility] HospitalH Auto (RBC) [Entitic mass]on 45-62-4342ONT (RBC) [Entitic mass]MCH [Entitic mass] by Automated count 26.7-34.0[facility] HospitalMCHC Auto (RBC) [Mass/Vol]on 70-09-0459EKFJ (RBC) [Mass/Vol]MCHC [Mass/volume] by Automated count29.9-35.2 [facility] HospitalMCV Auto (RBC) [Entitic vol]on 99-05-7310ZPR (RBC) [Entitic vol]MCV [Entitic volume] by Automated count81.0-99.0[facility] HospitalMonocytes Auto (Bld) [#/Vol]on 70-90-1523Tcjwosfxf (Bld) [#/Vol]Automated blood monocyte count0.3-0.8[facility] Monocytes/100 WBC Auto (Bld)on 83-89-8791Fiuesuhho/100 WBC (Bld)Automated monocyte %1.7-12.0[facility] HospitalNeutrophils Auto (Bld) [#/Vol]on 99-55-4290Umcbxksubwo (Bld) [#/Vol]Neutrophils [#/volume] in Blood by Automated count1.4-6.5FCleveland Clinic Medina HospitalNeutrophils/100 WBC Auto (Bld)on 95-49-1832Plxzylhlrbf/100 WBC (Bld)Automated neutrophil %43.0-75.0 [facility] HospitalNo Panel Informationon 55-73-0453Nfhdlmnyiit # (Auto)0.2 10 3/uL0.0-0.7FCleveland Clinic Medina HospitalFolate20.00 ng/mL 8.60-58.90[facility] HospitalImmature Granulocyte # (Auto)0.03 10 3/uL0.00-0.03[facility] HospitalPlatelet mean volume Auto (Bld) [Entitic vol]on 06-67-3895Dlqtfpav mean volume (Bld) [Entitic vol]Platelet mean volume [Entitic volume] in Blood by Automated countLow9.5-13.5FCleveland Clinic Medina HospitalPlatelets Auto (Bld) [#/Vol]on 15-12-6520Rsrdmfvnp (Bld) [#/Vol] Platelets [#/volume] in Blood by Automated qwihx961-237RulorvvoxHolmes County Joel Pomerene Memorial HospitalRBC Auto (Bld) [#/Vol]on 15-63-2599ZMM (Bld) [#/Vol]Erythrocytes [#/volume] in Blood by Automated countLow4.20-5.40[facility] Lutheran Hospitalerum or plasma anion gap determinationon 57-52-0797Dzyxb gap [Moles/Vol] Serum or plasma anion gap determinationHolmes County Joel Pomerene Memorial HospitalAlanine aminotransferase [Enzymatic activity/volume] in Serum or PlasmaOrdered By: Josh Sosa on 60-39-1245CND [Catalytic activity/Vol]Alanine aminotransferase [Enzymatic activity/volume] in Serum or Plasma7[facility] HospitalAlbumin [Mass/volume] in Serum or Plasma by Bromocresol green (BCG) dye binding methoOrdered By: Josh Sosa on 97-66-4579Msgfmft BCG dye [Mass/Vol] Albumin [Mass/volume] in Serum or Plasma by Bromocresol green (BCG) dye binding methoLow3.5-5.7FCleveland Clinic Medina HospitalAlkaline phosphatase [Enzymatic activity/volume] in Serum or PlasmaOrdered By: Josh Sosa on 32-11-4561ECR [Catalytic activity/Vol]Alkaline phosphatase [Enzymatic activity/volume] in Serum or Qxxbzn84-669FzzghrusbHolmes County Joel Pomerene Memorial HospitalAspartate aminotransferase [Enzymatic activity/volume] in Serum or PlasmaOrdered By: Josh Sosa on 43-60-2506USO [Catalytic activity/Vol]Aspartate aminotransferase [Enzymatic activity/volume] in Serum or Ywqblk23-91PluxvmahtHolmes County Joel Pomerene Memorial Hospital Basophils Auto (Bld) [#/Vol]Ordered By: Josh Sosa on 54-67-9792Vkbhwpkdi (Bld) [#/Vol]Automated basophil count0.0-0.2FCleveland Clinic Medina Hospital Basophils/100 WBC Auto (Bld)Ordered By: Josh Sosa on 78-95-4396Eddotnwqw/100 WBC (Bld)Automated basophil %.[facility] HospitalBilirubin.total [Mass/volume] in Serum or PlasmaOrdered By: Josh Sosa on 11-68-9105Myheqyadd [Mass/Vol]Bilirubin.total [Mass/volume] in Serum or Plasma0.3-1.0[facility] HospitalCalcium [Mass/volume] in Serum or PlasmaOrdered By: Josh Sosa on 32-97-6445Rycwhqq [Mass/Vol]Calcium [Mass/volume] in Serum or Plasma Low8.6-10.3FCleveland Clinic Medina HospitalCarbon dioxide, total [Moles/volume] in Serum or PlasmaOrdered By: Josh Sosa on 82-33-2781TK1 [Moles/Vol]Carbon dioxide, total [Moles/volume] in Serum or Tudyxt70.0-31.0[facility] HospitalChloride [Moles/volume] in Serum or PlasmaOrdered By: Josh Sosa on 17-51-2776Jdfmxbdl [Moles/Vol]Chloride [Moles/volume] in Serum or PlasmaHigh 98-107[facility] HospitalComplete Blood Count Auto Diffon 82-02-1900Tyxduhvcx (Bld) [#/Vol]0.0 10*3/uLNormal0.0-0.2The Counts Include 234 [facility] Physician GroupComment on above:Result Comment: PERFORMED BY:[address] [place], [place] [phone] MEDICAL DIRECTORLLOYD NICHOLSON M.D.Performed By: #### CBC, CMP ####[address] [address] USABasophils/100 WBC (Bld)0.8 %Normal.The Counts Include [address] [facility] At [facility] Physician GroupComment on above:Performed By: #### CBC, CMP ####[address] [address] USAEosinophils (Bld) [#/Vol]0.2 10*3/uLNormal0.0-0.45The Counts Include 234 [facility] At [facility] Physician GroupComment on above:Performed By: #### CBC, CMP ####[address] [address] USAEosinophils/100 WBC (Bld)3.4 %Normal.The Counts Include [address] [facility] At [facility] Physician GroupComment on above:Performed By: #### CBC, CMP ####[address] [address] USAErythrocyte distribution width (RBC) [Ratio]14.9 %Roagzo17.9-15.3The Counts Include [address] [facility] At [facility] Physician GroupComment on above:Performed By: #### CBC, CMP ####[address] [address] [place] Hematocrit (Bld) [Volume fraction]29.6 %Low34.0-46.4The Counts Include 234 [facility] At [facility] Physician GroupComment on above:Performed By: #### CBC, CMP ####[address] [address] USAHemoglobin (Bld) [Mass/Vol]9.9 g/dLLow 11.8-15.4The Counts Include [address] [facility] At [facility] Physician GroupComment on above:Performed By: #### CBC, CMP ####[address] [address] [place] Lymphocytes (Bld) [#/Vol]1.6 10*3/uLNormal1.00-4.8The Counts Include 234 [facility] Comment on above:Performed By: #### CBC, CMP ####[address] [address] USALymphocytes/100 WBC (Bld)28.0 %Normal. The Counts Include 234 [facility] At [facility] Physician GroupComment on above:Performed By: #### CBC, CMP ####[address] [address] [facility] CENTERMCH (RBC) [Entitic mass]28.8 inHyygmj75.7-34.3The Counts Include 234 [facility] At [facility] Physician GroupComment on above:Performed By: #### CBC, CMP ####[address] [address] [facility] CENTERMCV (RBC) [Entitic vol]86.1 nOUuciam91-538Cwm Counts Include 234 [facility] At [facility] Physician GroupComment on above:Performed By: #### CBC, CMP ####[place] [address] USAMean Corpuscular HGB Conc33.5 g/hCHpoyac01.0-35.0The Counts Include [address] [facility] At [facility] Physician GroupComment on above:Performed By: #### CBC, CMP ####[address] [address] USAMonocytes (Bld) [#/Vol]1.1 10*3/uLHigh0.0-0.8 The Counts Include 234 [facility] At [facility] Physician GroupComment on above:Performed By: #### CBC, CMP ####[place] [id number] [place] Monocytes/100 WBC (Bld)19.5 %Normal.The Counts Include 234 [facility] Physician GroupComment on above:Performed By: #### CBC, CMP ####[address] [address] USANeutrophils (Bld) [#/Vol]2.7 10*3/uLNormal1.8-7.7The Counts Include 234 [facility] At [facility] Physician GroupComment on above:Performed By: #### CBC, CMP ####[place] [id number] [place] Neutrophils/100 WBC (Bld)48.3 %Normal.The Counts Include 234 [facility] Physician GroupComment on above:Performed By: #### CBC, CMP ####[place] [id number] USANRBC%0.2 /100{WBC}Normal0-0.5The Counts Include 234 [facility] At [facility] Physician GroupComment on above:Performed By: #### CBC, CMP ####[place] [address] USAPlatelet mean volume (Bld) [Entitic vol]8.0 fLNormal6.3-10.7The Counts Include [address] [facility] At [facility] Physician GroupComment on above: Performed By: #### CBC, CMP ####[place] [address] USAPlatelets (Bld) [#/Vol]285 10*3/bLYqaokw108-025Uua Counts Include [address] [facility] At [facility] Physician GroupComment on above:Performed By: #### CBC, CMP ####[place] [address] USARBC (Bld) [#/Vol]3.44 10*6/uLLow3.60-5.00The Counts Include [address] [facility] At [facility] Physician GroupComment on above:Performed By: #### CBC, CMP ####[place] [address] USAWBC (Bld) [#/Vol]5.7 10*3/uLNormal3.8-11.6The Counts Include [address] [facility] Physician GroupComment on above:Performed By: #### CBC, CMP ####[place] [id number] [facility] Comprehensive Metabolic Panelon 55-89-0287Bkkzhxz [Mass/Vol]2.9 g/dLLow3.5-5.7 The Counts Include [address] [facility] Physician GroupComment on above:Performed By: #### CBC, CMP ####[place] [id number] [facility] Albumin/Globulin [Mass ratio]1.4 {ratio}NormalThe Counts Include [address] [facility] Comment on above:Performed By: #### CBC, CMP ####[place] [id number] USAALP [Catalytic activity/Vol]49 U/L Jgdwqj98-437Uvj Counts Include [address] [facility] At [facility] Physician GroupComment on above:Performed By: #### CBC, CMP ####[address] [address] USAALT [Catalytic activity/Vol]13 U/LNormal7-52The Counts Include 234 [facility] Comment on above:Performed By: #### CBC, CMP ####[place] [address] USAAnion gap [Moles/Vol]9.5 mmol/LNormal 6.0-15.0The Counts Include [address] At [facility] Physician GroupComment on above:Performed By: #### CBC, CMP ####[place] [address] USAAST [Catalytic activity/Vol]13 U/HYvfrok73-64Sqk Counts Include [address] [facility] Physician GroupComment on above:Performed By: #### CBC, CMP ####[place] [address] USABilirubin [Mass/Vol]1.0 mg/dLNormal0.3-1.0The Counts Include [address] [facility] Physician GroupComment on above:Performed By: #### CBC, CMP ####[place] [address] USACalcium [Mass/Vol]8.1 mg/dLLow8.6-10.3The Counts Include [address] [facility] Physician GroupComment on above: Performed By: #### CBC, CMP ####[place] [address] USAChloride [Moles/Vol]109 mmol/CVnwj74-204Hku Counts Include [address] [facility] Physician GroupComment on above:Performed By: #### CBC, CMP ####[place] [id number] USACO2 [Moles/Vol]27.5 mmol/PByloon34.0-31.0The Counts Include [address] [facility] Physician GroupComment on above:Performed By: #### CBC, CMP ####[place] [id number] USACreatinine [Mass/Vol]0.96 mg/dLNormal0.60-1.20The Counts Include [address] [facility] Physician GroupComment on above:Performed By: #### CBC, CMP ####[address] [address] [place] Creatinine Clr Calc Ddjfhzhk33.13NoFormerly [facility] Physician GroupComment on above:Result Comment: PERFORMED BY:[address] [place], [place] [phone] MEDICAL DIRECTORLLOYD YANEZ M.D.Performed By: #### CBC, CMP ####[address] [address] USAGFR/1.73 sq M.predicted MDRD (S/P/Bld) [Vol rate/Area]mL/min/{1.73_m2}NormalThe Counts Include [facility] Physician GroupComment on above: Performed By: #### CBC, CMP ####[address] [address] USAGlobulin (S) [Mass/Vol]2.1 g/dLNoFormerly [facility] Physician GroupComment on above:Performed By: #### CBC, CMP ####[address] [address] USAGlucose [Mass/Vol]96 mg/kHWxtnte97-559Bvb Counts Include [facility] Physician GroupComment on above:Result Comment: Random Glucose Reference Range is dependent on time and content of last meal. Glucose of more than 200 mg/dL in a nonstressed, ambulatory subject supports the diagnosis of Diabetes Mellitus. ADA recommended reference rangePerformed By: #### CBC, CMP ####[address] [address] USAPotassium [Moles/Vol]4.0 mmol/LNormal3.5-5.1The Counts Include [facility] Physician GroupComment on above:Performed By: #### CBC, CMP ####[address] [address] USAProtein [Mass/Vol]5.0 g/dLLow6.4-8.9 The Counts Include [facility] Physician GroupComment on above:Performed By: #### CBC, CMP ####[facility] [address] [place] [address] USASodium [Moles/Vol]142 mmol/VPomubu825-500Qrn Counts Include [facility] Physician GroupComment on above: Performed By: #### CBC, CMP ####[facility] [address] [place] [address] USAUrea nitrogen [Mass/Vol]46 mg/dLHigh7-25The Counts Include [facility] Physician GroupComment on above:Performed By: #### CBC, CMP ####[facility] [address] [place] [address] [place] Creatinine [Mass/volume] in Serum or PlasmaOrdered By: Josh Sosa on 04-09-2024 Creatinine [Mass/Vol]Creatinine [Mass/volume] in Serum or Plasma0.60-1.20 [facility] HospitalEosinophils Auto (Bld) [#/Vol]Ordered By: Josh Sosa on 68-69-7344Tzljoelxqsx (Bld) [#/Vol]Automated eosinophil count0.0-0.45 [facility] HospitalEosinophils/100 WBC Auto (Bld)Ordered By: Josh Sosa on 51-74-2840Kldjnhzrxob/100 WBC (Bld)Automated eosinophil %.[facility] HospitalErythrocyte distribution width Auto (RBC) [Ratio]Ordered By: Josh Sosa on 40-33-8662Ahdzivzgjkj distribution width (RBC) [Ratio] Erythrocyte distribution width [Ratio] by Automated count11.9-15.3FCleveland Clinic Medina HospitalGlobulin Calc (S) [Mass/Vol]Ordered By: Josh Sosa on 36-09-9386Wkjlwbmu (S) [Mass/Vol]Serum globulin measurement by calculation (mass/volume)[facility] HospitalGlucose [Mass/volume] in Serum or PlasmaOrdered By: Josh Sosa on 37-03-9928Cyryqwx [Mass/Vol]Glucose [Mass/volume] in Serum or Suuxyy49-056MhtiuhjvxHolmes County Joel Pomerene Memorial HospitalComment on above:ADA recommended reference rangeRandom Glucose Reference Range is dependent on time and content of last meal. Glucose of more than 200 mg/dL in a nonstressed, ambulatory subject supports the diagnosisof Diabetes Mellitus. Hematocrit Auto (Bld) [Volume fraction]Ordered By: Josh Sosa on 04-09-2024 Hematocrit (Bld) [Volume fraction]Hematocrit [Volume Fraction] of Blood by Automated dtvowVug00.0-46.4FCleveland Clinic Medina HospitalHemoglobin [Mass/volume] in BloodOrdered By: Josh Sosa on 37-14-6094Hhvjavuebc (Bld) [Mass/Vol]Hemoglobin [Mass/volume] in EtzqcYyi30.8-15.4FCleveland Clinic Medina HospitalLeukocytes [#/volume] corrected for nucleated erythrocytes in Blood by Automated counOrdered By: Josh Sosa on 17-84-7600OXU corrected for nucl RBC Auto (Bld) [#/Vol]Leukocytes [#/volume] corrected for nucleated erythrocytes in Blood by Automated coun3.8-11.6FCleveland Clinic Medina Hospital Lymphocytes Auto (Bld) [#/Vol]Ordered By: Josh Sosa on 27-13-2607Omwmdkwspcg (Bld) [#/Vol]Lymphocytes [#/volume] in Blood by Automated count1.00-4.8[facility] HospitalLymphocytes/100 WBC Auto (Bld)Ordered By: Josh Sosa on 91-24-0798Nfkfwdbktdv/100 WBC (Bld)Lymphocytes/100 leukocytes in Blood by Automated count.[facility] HospitalH Auto (RBC) [Entitic mass] Ordered By: Josh Sosa on 34-46-7142KFG (RBC) [Entitic mass]MCH [Entitic mass] by Automated count24.7-34.3FCleveland Clinic Medina HospitalMCHC Auto (RBC) [Mass/Vol]Ordered By: Josh Sosa on 67-90-9602QKXI (RBC) [Mass/Vol]MCHC [Mass/volume] by Automated count32.0-35.0[facility] HospitalMCV Auto (RBC) [Entitic vol]Ordered By: Josh Sosa on 41-01-7296DSJ (RBC) [Entitic vol]MCV [Entitic volume] by Automated exrbc44-590WnxkmjnnoHolmes County Joel Pomerene Memorial HospitalMonocytes Auto (Bld) [#/Vol]Ordered By: Josh Sosa on 24-11-5084Yuhesbdji (Bld) [#/Vol]Automated blood monocyte countHigh0.0-0.8[facility] HospitalMonocytes/100 WBC Auto (Bld)Ordered By: Josh Sosa on 04-09-2024 Monocytes/100 WBC (Bld)Automated monocyte %.[facility] Neutrophils Auto (Bld) [#/Vol]Ordered By: Josh Sosa on 80-33-6808Wulgvkvzgqt (Bld) [#/Vol]Neutrophils [#/volume] in Blood by Automated count1.8-7.7FCleveland Clinic Medina HospitalNeutrophils/100 WBC Auto (Bld)Ordered By: Josh Sosa on 64-31-8559Cgacprxcszd/100 WBC (Bld)Automated neutrophil %.[facility] HospitalNo Panel InformationOrdered By: Josh Sosa on 45-62-3091Oculmjanc GFR (CKD-EPI)> 60.0 mL/MinHolmes County Joel Pomerene Memorial HospitalPharmacy Creatinine Clearance (Chem46.13[facility] HospitalNucleated erythrocytes [Presence] in Blood by Automated countOrdered By: Josh Sosa on 04-09-2024 Nucleated RBC Auto Ql (Bld)Nucleated erythrocytes [Presence] in Blood by Automated count0-0.5FCleveland Clinic Medina HospitalPlatelet mean volume Auto (Bld) [Entitic vol]Ordered By: Josh Sosa on 70-14-1812Vflnveqm mean volume (Bld) [Entitic vol]Platelet mean volume [Entitic volume] in Blood by Automated count6.3-10.7FCleveland Clinic Medina HospitalPlatelets Auto (Bld) [#/Vol] Ordered By: Josh Sosa on 22-43-9264Ackdfllyy (Bld) [#/Vol]Platelets [#/volume] in Blood by Automated -437YiptmpkitHolmes County Joel Pomerene Memorial HospitalPotassium [Moles/volume] in Serum or PlasmaOrdered By: Josh Sosa on 72-29-6311Rtbvjhhma [Moles/Vol]Potassium [Moles/volume] in Serum or Plasma3.5-5.1FCleveland Clinic Medina HospitalProtein [Mass/volume] in Serum or PlasmaOrdered By: oJsh Sosa on 59-93-4288Tbyajao [Mass/Vol]Protein [Mass/volume] in Serum or PlasmaLow6.4-8.9 [facility] HospitalRBC Auto (Bld) [#/Vol]Ordered By: Josh Sosa on 15-48-0124IVU (Bld) [#/Vol]Erythrocytes [#/volume] in Blood by Automated countLow3.60-5.00C[facility] Lutheran Hospitalerum or plasma albumin/globulin mass ratioOrdered By: Josh Sosa on 52-57-4412Kpqlymb/Globulin [Mass ratio]Serum or plasma albumin/globulin mass ratioCleveland Clinic Lutheran Hospitalerum or plasma anion gap determinationOrdered By: Josh Sosa on 24-62-0668Stuoz gap [Moles/Vol]Serum or plasma anion gap determination6.0-15.0 [facility] Hospitalodium [Moles/volume] in Serum or PlasmaOrdered By: Josh Sosa on 51-33-0913Cyjzmx [Moles/Vol]Sodium [Moles/volume] in Serum or Ppdkzp808-894SzlcvwfjjHolmes County Joel Pomerene Memorial HospitalUrea nitrogen [Mass/volume] in Serum or PlasmaOrdered By: Josh Sosa on 31-21-7592Tizf nitrogen [Mass/Vol]Urea nitrogen [Mass/volume] in Serum or PlasmaHigh7-25[facility] HospitalWBC Auto (Bld) [#/Vol]Ordered By: Josh Sosa on 98-03-4842WYO (Bld) [#/Vol]Leukocytes [#/volume] in Blood by Automated count3.8-11.6FCleveland Clinic Medina HospitalBasic Metabolic Panelon 28-51-3509Vbltr gap [Moles/Vol] 15.3 mmol/LHigh6.0-15.0The Counts Include [facility] Physician GroupComment on above:Performed By: #### BMP ####[facility] [place] [address] USACalcium [Mass/Vol]8.6 mg/dLNormal8.6-10.3The Counts Include [facility] Comment on above:Performed By: #### BMP ####[facility] [place] [address] USAChloride [Moles/Vol]103 mmol/GOtcxml97-398Wmx Counts Include [facility] Physician GroupComment on above:Performed By: #### BMP ####[facility] [place] [address] USACO2 [Moles/Vol]30.8 mmol/KRmlnoz42.0-31.0The Counts Include [facility] Physician GroupComment on above:Performed By: #### BMP ####[address] [place] [address] USACreatinine [Mass/Vol]1.45 mg/dLHigh0.60-1.20The Counts Include [facility] Comment on above:Performed By: #### BMP ####[address] [place] [address] USACreatinine Clr Calc Rbkggqvw51.48NormLee Health Coconut Point Physician GroupComment on above:Result Comment: PERFORMED BY:[address] [address] [address] ABHISHEKGaloRadhaHUI, [place] [phone] MEDICAL DIRECTORLLOYD NICHOLSON M.D.Performed By: #### BMP ####[address] [address] USAEstimated GFR37.851 mL/MinNormLee Health Coconut Point Physician [facility] HospitalComment on above:Performed By: #### BMP ####[address] [address] [place] Glucose [Mass/Vol]92 mg/zZLylycl27-752Rsy Counts Include [facility] Physician GroupComment on above:Result Comment: Random Glucose Reference Range is dependent on time and content of last meal. Glucose of more than 200 mg/dL in a nonstressed, ambulatory subject supports the diagnosis of Diabetes Mellitus. ADA recommended reference rangePerformed By: #### BMP ####[facility] [place] [address] USAPotassium [Moles/Vol]4.1 mmol/LNormal3.5-5.1 The Counts Include [address] [facility] Physician GroupComment on above:Performed By: #### BMP ####[address] [place] [address] USASodium [Moles/Vol]145 mmol/MWwyhho296-047Mol Counts Include [facility] Physician GroupComment on above: Performed By: #### BMP ####[id number] USAUrea nitrogen [Mass/Vol]68 mg/dLHigh7-25The Counts Include [address] [facility] Physician GroupComment on above:Performed By: #### BMP ####[place] [id number] USAComplete Blood Count Auto Diffon 32-48-4590Snvedlxld (Bld) [#/Vol]0.0 10*3/uLNormal0.0-0.2The Counts Include [address] [facility] Physician GroupComment on above:Result Comment: PERFORMED BY:[address]GaloBL[place], [place] [phone] MEDICAL DIRECTORLLOYD NICHOLSON M.D.Performed By: #### CBC, MG, PHOS, CMP ####[place] [address] [place] Basophils/100 WBC (Bld)0.6 %Normal.The Counts Include [address] [facility] Physician GroupComment on above:Performed By: #### CBC, MG, PHOS, CMP ####[place] [address] USAEosinophils (Bld) [#/Vol]0.2 10*3/uL Normal0.0-0.45The Counts Include [address] [facility] Physician [facility] HospitalComment on above:Performed By: #### CBC, MG, PHOS, CMP ####[id number] USAEosinophils/100 WBC (Bld)3.5 %Normal.The Counts Include [address] [facility] Comment on above:Performed By: #### CBC, MG, PHOS, CMP ####[place] [address] USAErythrocyte distribution width (RBC) [Ratio]14.6 %Qrqzyx34.9-15.3The Counts Include [address] [facility] Physician GroupComment on above:Performed By: #### CBC, MG, PHOS, CMP ####[id number] USAHematocrit (Bld) [Volume fraction]32.2 %Low34.0-46.4The Counts Include [address] [facility] Physician GroupComment on above:Performed By: #### CBC, MG, PHOS, CMP ####[place] [address] USAHemoglobin (Bld) [Mass/Vol]10.9 g/dLLow11.8-15.4The Counts Include [address] [facility] Physician GroupComment on above:Performed By: #### CBC, MG, PHOS, CMP ####[place] [address] [place] Lymphocytes (Bld) [#/Vol]1.4 10*3/uLNormal1.00-4.8The Counts Include [address] [facility] Comment on above:Performed By: #### CBC, MG, PHOS, CMP ####[place] [address] USALymphocytes/100 WBC (Bld)20.7 %Normal.The Counts Include [address] [facility] Physician GroupComment on above:Performed By: #### CBC, MG, PHOS, CMP ####[address]H (RBC) [Entitic mass]28.8 ceWpxmsh89.7-34.3The Counts Include [address] [facility] Physician GroupComment on above:Performed By: #### CBC, MG, PHOS, CMP ####[address]V (RBC) [Entitic vol]85.2 tJFhmpxc52-369Nhl Counts Include [address] [facility] Physician GroupComment on above:Performed By: #### CBC, MG, PHOS, CMP ####[place] [address] USAMean Corpuscular HGB Conc33.7 g/wPSgsokn23.0-35.0The Counts Include [address] [facility] Physician GroupComment on above:Performed By: #### CBC, MG, PHOS, CMP ####[place] [address] [place] Monocytes (Bld) [#/Vol]1.4 10*3/uLHigh0.0-0.8The Counts Include [address] [facility] Comment on above:Performed By: #### CBC, MG, PHOS, CMP ####[address] [address] USAMonocytes/100 WBC (Bld)20.5 % Normal.The Counts Include [address] [facility] Physician GroupComment on above:Performed By: #### CBC, MG, PHOS, CMP ####[place] [address] USANeutrophils (Bld) [#/Vol]3.7 10*3/uLNormal1.8-7.7The Counts Include [address] [facility] Physician GroupComment on above:Performed By: #### CBC, MG, PHOS, CMP ####[place] [address] USANeutrophils/100 WBC (Bld)54.7 %Normal.The Counts Include [address] [facility] Physician GroupComment on above:Performed By: #### CBC, MG, PHOS, CMP ####[id number] USANRBC%0.0 /100{WBC}Normal0-0.5The Counts Include [address] [facility] Physician GroupComment on above:Performed By: #### CBC, MG, PHOS, CMP ####[place] [id number] USAPlatelet mean volume (Bld) [Entitic vol]7.7 fLNormal6.3-10.7The Counts Include [address] [facility] Physician GroupComment on above:Performed By: #### CBC, MG, PHOS, CMP ####[place] [id number] USAPlatelets (Bld) [#/Vol]320 10*3/uL Vgoxrf283-012Qnp Counts Include [address] [facility] Physician GroupComment on above:Performed By: #### CBC, MG, PHOS, CMP ####[place] [address] USARBC (Bld) [#/Vol]3.78 10*6/uLNormal3.60-5.00The Counts Include [address] [facility] Physician GroupComment on above:Performed By: #### CBC, MG, PHOS, CMP ####[place] [address] USAWBC (Bld) [#/Vol]6.7 10*3/uLNormal3.8-11.6The Counts Include [address] [facility] Physician GroupComment on above:Performed By: #### CBC, MG, PHOS, CMP ####[place] [address] USAComprehensive Metabolic Panelon 26-91-2291Etoykrd [Mass/Vol]3.1 g/dLLow3.5-5.7The Counts Include [address] [facility] Physician GroupComment on above: Performed By: #### CBC, MG, PHOS, CMP ####[place] [address] USAAlbumin/Globulin [Mass ratio]1.3 {ratio}Normal The Counts Include [address] [facility] Physician GroupComment on above:Performed By: #### CBC, MG, PHOS, CMP ####[place] [address] USAALP [Catalytic activity/Vol]52 U/MKqhncb65-022Qzq Counts Include [address] [facility] Physician GroupComment on above:Performed By: #### CBC, MG, PHOS, CMP ####[place] [address] USAALT [Catalytic activity/Vol]13 U/L Normal7-52The Counts Include [address] [facility] Physician GroupComment on above:Performed By: #### CBC, MG, PHOS, CMP ####[place] [id number] USAAnion gap [Moles/Vol]11.3 mmol/LNormal6.0-15.0The Counts Include [address] [facility] Physician GroupComment on above:Performed By: #### CBC, MG, PHOS, CMP ####[place] [address] USAAST [Catalytic activity/Vol]14 U/BErunqa46-66Pme Counts Include [address] [facility] Physician GroupComment on above: Performed By: #### CBC, MG, PHOS, CMP ####[address] [place] [address] USABilirubin [Mass/Vol]0.9 mg/dLNormal0.3-1.0The Counts Include [address] [facility] Physician GroupComment on above:Performed By: #### CBC, MG, PHOS, CMP ####[place] [address] USACalcium [Mass/Vol]8.5 mg/dLLow8.6-10.3The Counts Include [address] [facility] Physician GroupComment on above: Performed By: #### CBC, MG, PHOS, CMP ####[place] [address] USAChloride [Moles/Vol]107 mmol/GIpoybd53-269Flx Counts Include [address] [facility] Physician GroupComment on above:Performed By: #### CBC, MG, PHOS, CMP ####[place] [address] USACO2 [Moles/Vol]29.4 mmol/LHyyayg78.0-31.0The Counts Include [address] [facility] Physician GroupComment on above:Performed By: #### CBC, MG, PHOS, CMP ####[place] [address] USACreatinine [Mass/Vol]1.37 mg/dL Significant change up0.60-1.20The Counts Include [address] [facility] Physician GroupComment on above: Performed By: #### CBC, MG, PHOS, CMP ####[place] [address] USACreatinine Clr Calc Btsckjzd22.26NoFormerly [facility] Physician GroupComment on above:Performed By: #### CBC, MG, PHOS, CMP ####[place] [address] [place] Estimated GFR40.518 mL/MinNoFormerly [facility] Physician GroupComment on above: Performed By: #### CBC, MG, PHOS, CMP ####[place] [address] USAGlobulin (S) [Mass/Vol]2.4 g/dLNormHolzer Health Systeme Counts Include [address] [facility] Physician GroupComment on above:Performed By: #### CBC, MG, PHOS, CMP ####[address] [address] USAGlucose [Mass/Vol]95 mg/lPGxsnxt55-613Yzv Counts Include [address] [facility] Physician GroupComment on above: Result Comment: Random Glucose Reference Range is dependent on time and content of last meal. Glucose of more than 200 mg/dL in a nonstressed, ambulatory subject supports the diagnosis of Diabetes Mellitus. ADA recommended reference rangePerformed By: #### CBC, MG, PHOS, CMP ####[address] [address] USAPotassium [Moles/Vol]3.7 mmol/LNormal 3.5-5.1The Counts Include [address] [facility] Physician GroupComment on above:Performed By: #### CBC, MG, PHOS, CMP ####[place] [id number] USAProtein [Mass/Vol]5.5 g/dLLow6.4-8.9The Counts Include [address] [facility] Physician GroupComment on above:Performed By: #### CBC, MG, PHOS, CMP ####[address] [address] USASodium [Moles/Vol]144 mmol/L Significant change bytj926-327Cmw Counts Include [address] [facility] Physician GroupComment on above: Performed By: #### CBC, MG, PHOS, CMP ####[address] [address] USAUrea nitrogen [Mass/Vol]91 mg/dLSignificant change up7-25The Counts Include [address] [facility] Physician GroupComment on above:Performed By: #### CBC, MG, PHOS, CMP ####[address] [address] USAMagnesiumon 51-88-2944Yiuakwtai [Mass/Vol]2.0 mg/dLNormal1.9-2.7The Counts Include [address] [facility] Physician GroupComment on above:Result Comment: PERFORMED BY:[address] [place], [place] [phone] MEDICAL DIRECTORMOBUFFALO GENERAL MEDICAL CENTERED M EL-FAKHARANY M.D.Performed By: #### CBC, MG, PHOS, CMP ####[address] [address] [place] Magnesium [Mass/volume] in Serum or PlasmaOrdered By: Josh Sosa on 04-08-2024 Magnesium [Mass/Vol]Magnesium [Mass/volume] in Serum or Plasma1.9-2.7FCleveland Clinic Medina HospitalPhosphate [Mass/volume] in Serum or PlasmaOrdered By: Josh Sosa on 09-83-3718Vtuddodrw [Mass/Vol]Phosphate [Mass/volume] in Serum or Plasma2.5-4.5FCleveland Clinic Medina HospitalPhosphoruson 83-37-7157Tltfeuepc [Mass/Vol]3.9 mg/dLNormal2.5-4.5The Counts Include [address] [facility] Physician GroupComment on above: Performed By: #### CBC, MG, PHOS, CMP ####[address] [address] USAAppearance of UrineOrdered By: Romel William on 18-98-3377Lxncvwcjhk (U)Urine appearanceCleOhio Valley Surgical Hospital B-Type Natriuretic Peptideon 05-48-2405Aaiqzuoxxop peptide B (Bld) [Mass/Vol] 193.0 pg/mLHigh5-100The Counts Include [address] [facility] Physician [facility] HospitalComment on above:Result Comment: PERFORMED BY:[address] [place], [place] [phone] MEDICAL DIRECTORLLOYD NICHOLSON M.D. Performed By: #### BNP, HS TROP, CMP, SCAN CBC, CK, MG ####[address] [address] USABilirubin Test strip Ql (U) Ordered By: Romel William on 22-13-9431Pxjmexvbg Ql (U)Bilirubin.total [Presence] in Urine by Test stripNegativeHolmes County Joel Pomerene Memorial HospitalCT head/brain wo conon 23-19-7462XS head/brain wo conNormalThe Counts Include [address] [facility] Physician [facility] HospitalColor Auto (U)Ordered By: Romel William on 01-26-0513Pwjny (U)Color of Urine by Auto [facility] SystemComprehensive Metabolic Panelon 83-63-0091Jroeqym [Mass/Vol]3.8 g/dLNormal3.5-5.7The Counts Include [address] Comment on above:Performed By: #### BNP, HS TROP, CMP, SCAN CBC, CK, MG ####[address] [place] [id number] [place] Albumin/Globulin [Mass ratio]1.4 {ratio}NormalThe Counts Include [address] [facility] Physician [facility] Comment on above:Performed By: #### BNP, HS TROP, CMP, SCAN CBC, CK, MG ####[address] [address] USAALP [Catalytic activity/Vol]56 U/CVgruyo47-018Ooq Counts Include [address] [facility] Physician GroupComment on above:Performed By: #### BNP, HS TROP, CMP, SCAN CBC, CK, MG ####[address] [address] USAALT [Catalytic activity/Vol]16 U/LNormal7-52The Counts Include [address] [facility] Physician GroupComment on above: Performed By: #### BNP, HS TROP, CMP, SCAN CBC, CK, MG ####[address] [address] USAAnion gap [Moles/Vol]18.0 mmol/LHigh6.0-15.0The Counts Include [address] [facility] Physician GroupComment on above:Performed By: #### BNP, HS TROP, CMP, SCAN CBC, CK, MG ####[address] [address] USAAST [Catalytic activity/Vol]20 U/SCxuweu84-66 The Counts Include [address] [facility] Physician GroupComment on above:Performed By: #### BNP, HS TROP, CMP, SCAN CBC, CK, MG ####[address] [address] USABilirubin [Mass/Vol]0.8 mg/dLNormal0.3-1.0The Counts Include [address] [facility] Physician GroupComment on above:Performed By: #### BNP, HS TROP, CMP, SCAN CBC, CK, MG ####[place] [address] USACalcium [Mass/Vol]9.1 mg/dLNormal8.6-10.3The Counts Include [address] [facility] Physician [facility] Comment on above:Performed By: #### BNP, HS TROP, CMP, SCAN CBC, CK, MG ####[place] [address] USAChloride [Moles/Vol]94 mmol/MTtq14-571Kon Counts Include [address] [facility] Physician GroupComment on above: Performed By: #### BNP, HS TROP, CMP, SCAN CBC, CK, MG ####[place] [id number] USACO2 [Moles/Vol]30.0 mmol/L Hthpln82.0-31.0The Counts Include [address] [facility] Physician GroupComment on above:Performed By: #### BNP, HS TROP, CMP, SCAN CBC, CK, MG ####[place] [id number] USACreatinine [Mass/Vol]2.96 mg/dLHigh0.60-1.20The Counts Include [address] [facility] Physician GroupComment on above:Performed By: #### BNP, HS TROP, CMP, SCAN CBC, CK, MG ####[place] [address] USACreatinine Clr Calc Oyrkwtev22.24NoFormerly [facility] Physician [facility] Comment on above:Performed By: #### BNP, HS TROP, CMP, SCAN CBC, CK, MG ####[address] [address] [place] Estimated GFR16.075 mL/MinNoFormerly [facility] Physician GroupComment on above: Performed By: #### BNP, HS TROP, CMP, SCAN CBC, CK, MG ####[address] [address] [address] USAGlobulin (S) [Mass/Vol]2.8 g/dL NormalThe Counts Include [facility] Physician GroupComment on above:Performed By: #### BNP, HS TROP, CMP, SCAN CBC, CK, MG ####[place] [address] USAGlucose [Mass/Vol]109 mg/cENdzt17-399Naw Counts Include [facility] Physician GroupComment on above:Result Comment: Random Glucose Reference Range is dependent on time and content of last meal. Glucose of more than 200 mg/dL in a nonstressed, ambulatory subject supports the diagnosis of Diabetes Mellitus. ADA recommended reference rangePerformed By: #### BNP, HS TROP, CMP, SCAN CBC, CK, MG ####[place] [address] [place] Potassium [Moles/Vol]4.0 mmol/LNormal3.5-5.1The Counts Include [facility] Physician GroupComment on above:Performed By: #### BNP, HS TROP, CMP, SCAN CBC, CK, MG ####[place] [address] USAProtein [Mass/Vol]6.6 g/dLNormal6.4-8.9The Counts Include [facility] Physician GroupComment on above:Performed By: #### BNP, HS TROP, CMP, SCAN CBC, CK, MG ####[place] [address] USASodium [Moles/Vol]138 mmol/YPypavd349-021Xfw Counts Include [facility] Physician [facility] HospitalComment on above:Performed By: #### BNP, HS TROP, CMP, SCAN CBC, CK, MG ####[place] [address] USAUrea nitrogen [Mass/Vol]138 mg/dLHigh7-25The Counts Include [facility] Comment on above:Performed By: #### BNP, HS TROP, CMP, SCAN CBC, CK, MG ####[place] [address] USACreatine Kinaseon 17-37-4933BM [Catalytic activity/Vol]77 U/KPnvvqx78-966Wym Counts Include [facility] Physician [facility] HospitalComment on above:Performed By: #### BNP, HS TROP, CMP, SCAN CBC, CK, MG ####[id number] [facility] [place] [address] [place] Creatine kinase [Enzymatic activity/volume] in Serum or PlasmaOrdered By: Romel William on 80-20-1311SZ [Catalytic activity/Vol]Creatine kinase [Enzymatic activity/volume] in Serum or Hlqddg14-784KgfyggsboHolmes County Joel Pomerene Memorial HospitalECG 12 lead ECGon 25-83-9008RSY 12 lead ECGMorton Plant North Bay [facility] Erythrocyte morphology finding [Identifier] in BloodOrdered By: Romel William on 55-45-3041FFZ morphology finding Nom (Bld)RBC morphologyHolmes County Joel Pomerene Memorial HospitalGlucose [Mass/volume] in Urine by Test stripOrdered By: Romel William on 66-86-7288Uzsqzei Test strip (U) [Mass/Vol]Glucose [Mass/volume] in Urine by Test stripNormalHolmes County Joel Pomerene Memorial HospitalHemoglobin Test strip Ql (U)Ordered By: Romel William on 98-62-9733Kxpudidfwa Ql (U)Hemoglobin [Presence] in Urine by Test stripNegBethesda North Hospital Hypochromia LM Ql (Bld)Ordered By: Romel William on 31-12-6461Ruyhjdjpupf Ql (Bld)Hypochromia [Presence] in Blood by Light microscopyHolmes County Joel Pomerene Memorial HospitalKetones Test strip Ql (U)Ordered By: Romel William on 04-07-2024 Ketones Ql (U)Ketones [Presence] in Urine by Test stripNegBethesda North HospitalLeukocyte esterase [Presence] in Urine by Test strip Ordered By: Romel William on 19-87-4257Iizrxtlkf esterase Test strip Ql (U) Leukocyte esterase [Presence] in Urine by Test stripNegBethesda North HospitalMagnesiumon 61-06-2979Uhtfzuiyk [Mass/Vol]2.1 mg/dLNormal1.9-2.7 The Counts Include [facility] Physician GroupComment on above:Result Comment: PERFORMED BY:[address] [address] [place], [place] [phone] MEDICAL DIRECTORLLOYD NICHOLSON M.D.Performed By: #### BNP, HS TROP, CMP, SCAN CBC, CK, MG ####[facility] [id number] [place] [address] USAMonocyte distribution width [Entitic volume] in Blood by AutomatedOrdered By: Romel William on 46-55-7599Qtpxyjgy distribution width Auto (Bld) [Entitic vol]Monocyte distribution width [Entitic volume] in Blood by AutomatedHigh0.00-20.00Hol[facility]ome[facility] HospitalComment on above:For adults in ED, MDW > 20.0 may be associated with a higher risk of sepsis during the first 12 hrs of hospital admissionNatriuretic peptide B [Mass/Vol]Ordered By: Romel William on 91-16-9093Zywxgzoorxs peptide B (Bld) [Mass/Vol]BNP ser/plasHigh5-100Hol[facility]ome[facility] Memorial HospitalNitrite Test strip Ql (U)Ordered By: Romel William on 80-88-3436Fuxjvub Ql (U)Nitrite [Presence] in Urine by Test stripNegativeHolmes County Joel Pomerene Memorial Hospital Platelet adequacy [Presence] in Blood by Light microscopyOrdered By: Romel William on 01-39-8503Kekyfgyfs LM Ql (Bld)Platelet adequacy [Presence] in Blood by Light microscopyNormHocking Valley Community HospitalPlatelet morphology finding [Identifier] in BloodOrdered By: Romel William on 51-89-5146Tnlpaokp morphology finding Nom (Bld)Platelet morphology finding [Identifier] in Blood NormalHolmes County Joel Pomerene Memorial HospitalProtein Test strip (U) [Mass/Vol]Ordered By: Romel William on 02-95-7293Rjqcqdb (U) [Mass/Vol]Protein [Mass/volume] in Urine by Test stripNegGuernsey Memorial Hospitalcan and CBCon 19-65-6008Iigtxaska (Bld) [#/Vol]0.1 10*3/uLNormal0.0-0.2The Counts Include [address] [facility] Physician GroupComment on above:Result Comment: PERFORMED BY:[facility] DONNIE SALASHU[place], [place] [phone] MEDICAL DIRECTORLLOYD NICHOLSON M.D.Performed By: #### BNP, HS TROP, CMP, SCAN CBC, CK, MG ####[place] [address] USABasophils/100 WBC (Bld)0.6 %Normal.The Counts Include [address] [facility] Physician GroupComment on above:Performed By: #### BNP, HS TROP, CMP, SCAN CBC, CK, MG ####[place] [address] USAEosinophils (Bld) [#/Vol]0.3 10*3/uLNormal0.0-0.45The Counts Include [address] [facility] Physician GroupComment on above: Performed By: #### BNP, HS TROP, CMP, SCAN CBC, CK, MG ####[place] [address] USAEosinophils/100 WBC (Bld)2.6 % Normal.The Counts Include [address] [facility] Physician GroupComment on above:Performed By: #### BNP, HS TROP, CMP, SCAN CBC, CK, MG ####[place] [address] USAErythrocyte distribution width (RBC) [Ratio]14.5 % Pzgjfm41.9-15.3The Counts Include [address] [facility] Physician GroupComment on above:Performed By: #### BNP, HS TROP, CMP, SCAN CBC, CK, MG ####[place] [address] USAHematocrit (Bld) [Volume fraction]34.3 %Normal 34.0-46.4The Counts Include [address] [facility] Physician GroupComment on above:Performed By: #### BNP, HS TROP, CMP, SCAN CBC, CK, MG ####[place] [address] USAHemoglobin (Bld) [Mass/Vol]11.4 g/dLLow11.8-15.4The Counts Include [address] [facility] Physician GroupComment on above:Performed By: #### BNP, HS TROP, CMP, SCAN CBC, CK, MG ####[place] [address] USAHypochromasiaSlightNormalThe Counts Include [address] [facility] Physician GroupComment on above: Performed By: #### BNP, HS TROP, CMP, SCAN CBC, CK, MG ####[address] [address] USALymphocytes (Bld) [#/Vol]1.7 10*3/uLNormal1.00-4.8The Counts Include [address] [facility] Physician GroupComment on above:Performed By: #### BNP, HS TROP, CMP, SCAN CBC, CK, MG ####[address] [address] USALymphocytes/100 WBC (Bld)13.7 %Normal.The Counts Include [address] [facility] Physician GroupComment on above:Performed By: #### BNP, HS TROP, CMP, SCAN CBC, CK, MG ####[address] [address] [facility] ([place]BC) [Entitic mass]28.0 jwXrnfoq65.7-34.3The Counts Include [address] [facility] Physician GroupComment on above:Performed By: #### BNP, HS TROP, CMP, SCAN CBC, CK, MG ####[address] [address] [facility] (RBC) [Entitic vol]84.2 vTEsywol53-497Knm Counts Include [address] [facility] Physician GroupComment on above:Performed By: #### BNP, HS TROP, CMP, SCAN CBC, CK, MG ####[address] [address] USAMean Corpuscular HGB Conc33.2 g/qIHmgjrb67.0-35.0The Counts Include [address] [facility] Physician GroupComment on above: Performed By: #### BNP, HS TROP, CMP, SCAN CBC, CK, MG ####[address] [address] USAMonocytes (Bld) [#/Vol]1.7 10*3/uLHigh0.0-0.8The Counts Include [address] [facility] Physician GroupComment on above:Performed By: #### BNP, HS TROP, CMP, SCAN CBC, CK, MG ####[place] [id number] USAMonocytes/100 WBC (Bld)20.54 %High0.00-20.00The Counts Include [address] [facility] Physician GroupComment on above:Result Comment: For adults in ED, MDW > 20.0 may be associated with a higher risk of sepsis during the first 12 hrs of hospital admissionPerformed By: #### BNP, HS TROP, CMP, SCAN CBC, CK, MG ####[id number] [place] Monocytes/100 WBC (Bld)14.0 %Normal.The Counts Include [address] [facility] Physician GroupComment on above:Performed By: #### BNP, HS TROP, CMP, SCAN CBC, CK, MG ####[id number] USANeutrophils (Bld) [#/Vol]8.4 10*3/uLHigh1.8-7.7The Counts Include [address] [facility] Physician GroupComment on above: Performed By: #### BNP, HS TROP, CMP, SCAN CBC, CK, MG ####[place] [id number] USANeutrophils/100 WBC (Bld)69.1 % Normal.The Counts Include [address] [facility] Physician GroupComment on above:Performed By: #### BNP, HS TROP, CMP, SCAN CBC, CK, MG ####[address] [address] USANRBC%0.1 /100{WBC}Normal0-0.5The Counts Include [address] [facility] Physician GroupComment on above:Performed By: #### BNP, HS TROP, CMP, SCAN CBC, CK, MG ####[address] [address] USAPlatelet EstimateNormalNormalNormalThe Counts Include [address] [facility] Physician GroupComment on above: Performed By: #### BNP, HS TROP, CMP, SCAN CBC, CK, MG ####[address] [address] USAPlatelet mean volume (Bld) [Entitic vol]7.8 fLNormal6.3-10.7The Counts Include [address] [facility] Physician GroupComment on above: Performed By: #### BNP, HS TROP, CMP, SCAN CBC, CK, MG ####[id number] USAPlatelet MorphologyNormalNormal NormalThe Counts Include [address] [facility] Physician GroupComment on above:Result Comment: PERFORMED BY:[address] [place], [place] [phone] MEDICAL DIRECTORLLOYD NICHOLSON M.D.Performed By: #### BNP, HS TROP, CMP, SCAN CBC, CK, MG ####[address] [address] USAPlatelets (Bld) [#/Vol]395 10*3/mLVcoegs307-786Woj Counts Include [address] [facility] Physician GroupComment on above:Performed By: #### BNP, HS TROP, CMP, SCAN CBC, CK, MG ####[id number] USARBC (Bld) [#/Vol]4.07 10*6/uLNormal3.60-5.00The Counts Include [address] [facility] Physician GroupComment on above:Performed By: #### BNP, HS TROP, CMP, SCAN CBC, CK, MG ####[id number] USAWBC (Bld) [#/Vol]12.2 10*3/uLHigh3.8-11.6The Counts Include [address] [facility] Physician GroupComment on above:Performed By: #### BNP, HS TROP, CMP, SCAN CBC, CK, MG ####[place] [id number] USASpecific gravity Test strip (U) [Rel density]Ordered By: Romel William on 68-88-0712Ljqquvbt gravity (U) [Rel density]Specific gravity of Urine by Test strip1.001-1.030Hol[facility] HospitalTroponin I High Sensitivityon 44-96-9628Uulrqpki I High Vnbzbuhupan97.9 pg/mLHigh0.0-15.0The Counts Include [address] [facility] Physician GroupComment on above: Result Comment: PERFORMED BY:[address] [place], [place] [phone] MEDICAL DIRECTORLLOYD YANEZ M.D.Performed By: #### BNP, HS TROP, CMP, SCAN CBC, CK, MG ####[address] [place] [address] USATroponin I.cardiac [Mass/volume] in Serum or Plasma by Detection limit <= 0.01 ng/Ordered By: Romel William on 20-44-8372Ujbfbzue I.cardiac DL <= 0.01 ng/mL [Mass/Vol] Troponin I.cardiac [Mass/volume] in Serum or Plasma by Detection limit <= 0.01 ng/High0.0-15.0Hol[facility] Memorial HospitalUrinalysison 04-07-2024 Appearance (U)ClearNormalClearThe Counts Include [address] [facility] Physician GroupComment on above: Order Comment: Name Collection Type:: Clean-Voided MidstreamPerformed By: #### UA ####[address] [address] [place] Bilirubin,UrineNegativeNormalNegativeThe Counts Include [address] [facility] Physician GroupComment on above:Order Comment: Name Collection Type:: Clean-Voided MidstreamPerformed By: #### UA ####[address] [address] USAColor (U)ColorlessNormalYellowThe Counts Include [address] [facility] Physician GroupComment on above: Order Comment: Name Collection Type:: Clean-Voided MidstreamPerformed By: #### UA ####[address] [address] [place] Glucose Ql (U)NormalNormalNormalThe Counts Include [address] [facility] Physician GroupComment on above: Order Comment: Name Collection Type:: Clean-Voided MidstreamPerformed By: #### UA ####[address] [address] [place] Ketones Ql (U)NegativeNormalNegativeThe Counts Include [address] [facility] Physician GroupComment on above:Order Comment: Name Collection Type:: Clean-Voided MidstreamPerformed By: #### UA ####[facility] [place] [address] USALeukocyte esterase Test strip Ql (U)NegativeNormalNegativeThe Counts Include [address] [facility] Physician GroupComment on above:Order Comment: Name Collection Type:: Clean- Voided MidstreamPerformed By: #### UA ####[address] [address] USANitrite,UrineNegativeNormalNegativeThe Counts Include [address] [facility] Physician GroupComment on above:Order Comment: Name Collection Type:: Clean-Voided MidstreamPerformed By: #### UA ####[address] [address] USAOccult Blood,UrineNegativeNormal NegativeThe Counts Include [address] [facility] Physician GroupComment on above:Order Comment: Name Collection Type:: Clean-Voided MidstreamResult Comment: PERFORMED BY:[address] [place], [place] [phone] MEDICAL DIRECTORLLOYD NICHOLSON M.D.Performed By: #### UA ####[address] [address] USApH (U)5.0 [pH]Normal 5.0-9.0The Counts Include [address] [facility] Physician GroupComment on above:Order Comment: Name Collection Type:: Clean-Voided MidstreamPerformed By: #### UA ####[address] [address] USAProtein,UrineNegative NormalNegativeThe Counts Include [address] [facility] Physician GroupComment on above:Order Comment: Name Collection Type:: Clean-Voided MidstreamPerformed By: #### UA ####[address] [address] USASpecificy [place],Urine1.111Ssbwdz3.001-1.030The Counts Include [address] Physician GroupComment on above:Order Comment: Name Collection Type:: Clean-Voided MidstreamPerformed By: #### UA ####[address] [address] USAUrobilinogen,UrineNormalNormalNormalThe Counts Include [address] [facility] Physician GroupComment on above:Order Comment: Name Collection Type:: Clean-Voided MidstreamPerformed By: #### UA ####[facility] [id number] [place] [address] USAUrobilinogen Test strip (U) [Mass/Vol]Ordered By: Romel William on 04-07-2024 Urobilinogen (U) [Mass/Vol]Urobilinogen [Mass/volume] in Urine by Test strip NormalHolmes County Joel Pomerene Memorial HospitalXR chest 2V*on 13-12-5791SH chest 2V* NormalPhysicians Regional Medical [facility] Physician [facility] Memorial HospitalpH Test strip (U)Ordered By: Romel William on 31-29-2366fY (U)pH of Urine by Test strip5.0-9.0[facility] HospitalEstimated glomerular filtration rate (GFR) non- Americanon 77-05-5794RMM/1.73 sq M.predicted among non-blacks MDRD (S/P/Bld) [Vol rate/Area]Estimated glomerular filtration rate (GFR) non- AmericanLow>=60 mL/min/1.73m 2FCleveland Clinic Medina HospitalLaboratory - Chemistry and Chemistry - challengeon 33-53-0757Dhpbxvg [Mass/Vol]9.8 mg/dL8.5-10.1FCleveland Clinic Medina HospitalChloride [Moles/Vol]100 mmol/Y73-107YxlsgklelHolmes County Joel Pomerene Memorial HospitalCO2 [Moles/Vol]31.8 mmol/L21.0-32.0[facility] HospitalCreatinine [Mass/Vol]1.74 mg/dLHigh0.55-1.02[facility] HospitalGFR/1.73 sq M.predicted MDRD (S/P/Bld) [Vol rate/Area]35 mL/min/{1.73_m2} Low>=60 mL/min/1.73m [address] [place], [place] [address]Glucose [Mass/Vol]96 mg/dH04-673KhwzmxshpHolmes County Joel Pomerene Memorial HospitalPotassium [Moles/Vol]3.8 mmol/L 3.5-5.1FSt. Elizabeth Hospitalodium [Moles/Vol]141 mmol/V263-740 [facility] HospitalUrea nitrogen [Mass/Vol]48.0 mg/dLHigh7.0-18.0 [facility] HospitalUrea nitrogen/Creatinine [Mass ratio]27.6 mg/mg [facility] Lutheran Hospitalerum or plasma anion gap determinationon 80-36-5584Yytrw gap [Moles/Vol]Serum or plasma anion gap determinationFirTrumbull Regional Medical CenterXR lumbar spine 2-3V*on 40-40-0801DS lumbar spine 2-3V* NormalThe Counts Include [address] [facility] Physician GroupCNPNon 45-63-7468JTHZFawwfjjxc (HEMTSA) RENUKA OWEN ([id number]) 1950 F Date Time Provider Department 01/06/24 TRINY MART During your visit today, we recorded the following information about you: Triny Mart RN 01/06/2024 11:46 AM Signed Pt calls to ask when her mammogram is due. Pt's record reviewed. Last Mamm done on 02/08/23 @ [facility]. 12 month f/u recommended. Order for Mamm faxed to [facility] on 06/22/23. Pt notified of the above. Advised she call [facility] to schedule. Pt verbalizes understanding and agrees. Triny Mart RN Allergies As of Date: 01/06/2024 Noted Allergy Reaction PENICILLINS 03/05/2011 4 - Hives LIPITOR (ATORVASTATIN CALCIUM) 03/05/2011 9 - Itching Date Reviewed: 05/19/2022 Reviewed by: Alexandra Bueno, JAZMINE - Fully Assessed Reason for Visit: Radiology Mammogram [8925] Prescriptions as of 01/06/2024 - torsemide (DEMADEX) [...] tumor [D49.0] 06/19/2020 06/20/2020 Encounter Status:Closed by TRINY MART on 01/06/24NoAdena Regional Medical CenterEstimated glomerular filtration rate (GFR) non- Americanon 75-73-2326KYJ/1.73 sq M.predicted among non-blacks MDRD (S/P/Bld) [Vol rate/Area]36 mL/min/{1.73_m2}Low>=60[facility] HospitalLaboratory - Chemistry and Chemistry - challengeon 13-30-2665Zvwyxeu [Mass/Vol]9.7 mg/dL 8.5-10.1FCleveland Clinic Medina HospitalChloride [Moles/Vol]102 mmol/L98-107 [facility] HospitalCO2 [Moles/Vol]29.7 mmol/L21.0-32.0[facility] HospitalCreatinine [Mass/Vol]1.43 mg/dLHigh0.55-1.02[facility] HospitalGFR/1.73 sq M.predicted MDRD (S/P/Bld) [Vol rate/Area]44 mL/min/{1.73_m2}Low>=60[facility] HospitalGlucose [Mass/Vol]96 mg/hW98-975UcyabtnymHolmes County Joel Pomerene Memorial HospitalMagnesium [Mass/Vol]2.5 mg/dLHigh 1.8-2.4FCleveland Clinic Medina HospitalPotassium [Moles/Vol]4.2 mmol/L3.5-5.1 [facility] Hospitalodium [Moles/Vol]140 mmol/O667-208LwjmlpwcuHolmes County Joel Pomerene Memorial HospitalTSH Qn2.005 m[IU]/L0.358-3.740[facility] Memorial HospitalUrea nitrogen [Mass/Vol]61.0 mg/dLHigh7.0-18.0[facility] HospitalUrea nitrogen/Creatinine [Mass ratio]42.7 mg/mgCleveland Clinic Lutheran Hospitalerum or plasma anion gap determinationon 96-52-2226Phlhx gap [Moles/Vol] 12.5 mmol/LFCleveland Clinic Medina HospitalBasophils Auto (Bld) [#/Vol]on 16-46-7171Mfenffknx (Bld) [#/Vol]0.05 10*3/uL<0.11[facility] HospitalBasophils/100 WBC Auto (Bld)on 82-96-8107Uabxejeia/100 WBC (Bld)0.8 % [facility] HospitalBlood manual differential comment interpretation narrativeon 90-97-2904Gfcepn differential comment Mckay (Bld) [Interp]AutoHolmes County Joel Pomerene Memorial HospitalEosinophils/100 WBC Auto (Bld)on 77-83-0649Awvzcejslgz/100 WBC (Bld)5.8 %[facility] Erythrocyte distribution width Auto (RBC) [Ratio]on 29-42-9967Hzosobwztub distribution width (RBC) [Ratio]14.9 %11.5-15.0[facility] Hematocrit Auto (Bld) [Volume fraction]on 73-77-0111Wthkkirvhc (Bld) [Volume fraction]36.0 %36.0-46.0[facility] HospitalHemoglobin [Mass/volume] in Bloodon 89-74-8657Eusjuzhcrc (Bld) [Mass/Vol]11.4 g/dL11.5-15.5 [facility] HospitalLaboratory - Chemistry and Chemistry - challengeon 38-04-5109Azacsvp [Mass/Vol]4.4 g/dL3.9-4.9[facility] HospitalALP [Catalytic activity/Vol]67 U/B77-381GmruklgjwHolmes County Joel Pomerene Memorial HospitalALT [Catalytic activity/Vol]8 U/L7-38[facility] HospitalAST [Catalytic activity/Vol]16 U/G17-38IwtxthbzdHolmes County Joel Pomerene Memorial HospitalBilirubin [Mass/Vol]0.4 mg/dL0.2-1.3FCleveland Clinic Medina HospitalCalcium [Mass/Vol] 10.6 mg/dL8.5-10.2FCleveland Clinic Medina HospitalChloride [Moles/Vol]99 mmol/L 97-105[facility] HospitalCO2 [Moles/Vol]30 mmol/V72-66NkmhlopjcHolmes County Joel Pomerene Memorial HospitalCreatinine [Mass/Vol]1.29 mg/dL0.58-0.96[facility] HospitalGlucose [Mass/Vol]109 mg/fM78-70RhvwxiyjxHolmes County Joel Pomerene Memorial HospitalComment on above:The [place] Diabetes Association (ADA) provides guidance for cutoff values for fasting glucose andrandom glucose. The ADA defines fasting as no caloric intake for at least 8 hours. Fasting plasma gl ucose results between 100 to 125 mg/dL indicate increased risk for diabetes (prediabetes).Fasting plasma glucose results greater than or equal to 126 mg/dL meet the criteria for diagnosis of diabetes. In the absence of unequivocal hyperglycemia, results should be confirmed by repeat testing. In a patient with classic symptoms of hyperglycemia or hyperglycemic crisis, random plasma glucose resultsgreater than or equal to 200 mg/dL meet the criteria for diagnosis of diabetes.Reference: Standard[employer] Medical [employer] in Diabetes 2016, [place] Diabetes Association. Diabetes Care. 2016.39(Suppl 1).Potassium [Moles/Vol]4.8 mmol/L 3.7-5.1FCleveland Clinic Medina HospitalProtein [Mass/Vol]7.3 g/dL6.3-8.0 [facility] Hospitalodium [Moles/Vol]138 mmol/D323-814BgjqfnjbhHolmes County Joel Pomerene Memorial HospitalUrea nitrogen [Mass/Vol]45 mg/dL7-21[facility] HospitalLaboratory - Hematology and Cell countson 57-48-0984Zfdwcwlostq (Bld) [#/Vol]0.37 10*3/uL<0.46[facility] HospitalImmature granulocytes/100 WBC (Bld)0.2 %[facility] HospitalLeukocytes [#/volume] corrected for nucleated erythrocytes in Blood by Automated counon 75-50-3649YPG corrected for nucl RBC Auto (Bld) [#/Vol]6.43 k/uL3.70-11.00 [facility] HospitalLymphocytes Auto (Bld) [#/Vol]on 06-22-2023 Lymphocytes (Bld) [#/Vol]1.86 10*3/uL1.00-4.00[facility] Lymphocytes/100 WBC Auto (Bld)on 96-41-2743Sexewjvgeqm/100 WBC (Bld)28.9 % [facility] HospitalH Auto (RBC) [Entitic mass]on 49-82-2436NOY (RBC) [Entitic mass]27.5 pg26.0-34.0[facility] HospitalMCHC Auto (RBC) [Mass/Vol]on 27-12-5292PLRD (RBC) [Mass/Vol]31.7 g/dL30.5-36.0[facility] HospitalMCV Auto (RBC) [Entitic vol]on 78-34-3657KCZ (RBC) [Entitic vol]86.7 fL80.0-100.0[facility] HospitalMonocytes Auto (Bld) [#/Vol]on 43-00-0538Wopywnqwp (Bld) [#/Vol]0.72 10*3/uL<0.87[facility] HospitalMonocytes/100 WBC Auto (Bld)on 53-04-3310Ikkccbfjb/100 WBC (Bld)11.2 %[facility] HospitalNeutrophils Auto (Bld) [#/Vol]on 93-93-5525Tveeidlgrbn (Bld) [#/Vol]3.42 10*3/uL1.45-7.50Holmes [facility] HospitalNeutrophils/100 WBC Auto (Bld)on 98-06-2029Cbwmvdafbhj/100 WBC (Bld)53.1 %[facility] HospitalNo Panel Informationon 33-64-2420GQ 27.2922.2 U/mL<38.6FCleveland Clinic Medina HospitalComment on above:The CA27.29 test was performed using the Siemens MustHaveMenusaur XP chemiluminometric immunoassay method. Results obtained with different assay methods or kits cannot be used interchangeably.Estimated GFR (CKD-EPI)44 mL/min/1.73m???>=60[facility] HospitalComment on above:Estimated Glomerular Filtration Rate (eGFR) is calculated using the 2020 CKD-EPI creatinine equation. This equation utilizes serum creatinine, sex, and age as parameters. The creatinine assay has traceable calibration to isotope dilution-mass spectrometry. Refer to KDIGO guidelines for clinical interpretation. In patients with unstable renal function, e.g. those with acute kidney injury, the eGFRmay not accurately reflect actual GFR. Immature Granulocyte # (Auto)<0.03 k/uL<0.10[facility] Nucleated RBC Auto (Bld) [#/Vol]on 18-40-9100Adduoydzn RBC (Bld) [#/Vol]10*3/uL <0.01[facility] HospitalNucleated erythrocytes [Presence] in Blood by Automated counton 33-60-2845Gnohipymy RBC Auto Ql (Bld)0.0 /100{WBC} [facility] HospitalPlatelet mean volume Auto (Bld) [Entitic vol]on 24-26-5856Jbaklioi mean volume (Bld) [Entitic vol]9.2 fL9.0-12.7FCleveland Clinic Medina HospitalPlatelets Auto (Bld) [#/Vol]on 88-43-6023Ruqupsyrw (Bld) [#/Vol]286 10*3/rT057-584XawsclyckHolmes County Joel [facility]omerene Memorial HospitalRBC Auto (Bld) [#/Vol] on 54-40-0657YTH (Bld) [#/Vol]4.15 10*6/uL3.90-5.20[facility] Lutheran Hospitalerum or plasma anion gap determinationon 53-29-2526Gtecr gap [Moles/Vol]9 mmol/L9-18FCleveland Clinic Medina HospitalProgress Noteson 04-22-2023 V Belt Finisher Authentication Interface Message TextEMERGENCY TRIAGE, TREAT AND TRANSPORT (ET3) DOCUMENTATION OF TELEHEALTH VISIT Date / Time: 03/06/2023599 Name: Renuka Owen : 1950 SSN: (Not on file) EMS Agency: [facility] [x] Verbal consent obtained [] Implied [...] Disposition Reported: Same ET3 Encounter Completed by: Hazel Willson KewegoSolvAxis System Alanine aminotransferase [Enzymatic activity/volume] in Serum or PlasmaOrdered By: Jared Louis on 82-02-4750QJI [Catalytic activity/Vol]12 U/L7-52 [facility] HospitalAlbumin [Mass/volume] in Serum or Plasma by Bromocresol green (BCG) dye binding methoOrdered By: Jared Louis on 65-84-1553Lzyubfp BCG dye [Mass/Vol]3.4 g/dL3.5-5.7FCleveland Clinic Medina HospitalAlkaline phosphatase [Enzymatic activity/volume] in Serum or PlasmaOrdered By: Jared Louis on 18-49-1040QQP [Catalytic activity/Vol]45 U/L34-104 [facility] HospitalAspartate aminotransferase [Enzymatic activity/volume] in Serum or PlasmaOrdered By: Jared Louis on 64-65-0387PDE [Catalytic activity/Vol]14 U/F71-23OnnqnkamrHolmes County Joel [facility]omerene Memorial HospitalBasophils Auto (Bld) [#/Vol]Ordered By: Jared Louis on 04-16-2023 Basophils (Bld) [#/Vol]0.0 10*3/uL0.0-0.2FCleveland Clinic Medina Hospital Basophils/100 WBC Auto (Bld)Ordered By: Jared Louis on 04-16-2023 Basophils/100 WBC (Bld)0.4 %.[facility] HospitalBilirubin.total [Mass/volume] in Serum or PlasmaOrdered By: Jared Louis on 04-16-2023 Bilirubin [Mass/Vol]0.6 mg/dL0.3-1.0[facility] HospitalCalcium [Mass/volume] in Serum or PlasmaOrdered By: Jared Louis on 04-16-2023 Calcium [Mass/Vol]9.8 mg/dL8.6-10.3FCleveland Clinic Medina HospitalCarbon dioxide, total [Moles/volume] in Serum or PlasmaOrdered By: Jared Louis 19-00-6303AY1 [Moles/Vol]32.5 mmol/L21.0-31.0[facility] HospitalChloride [Moles/volume] in Serum or PlasmaOrdered By: Jared Louis 88-33-1524Pzccajbt [Moles/Vol]101 mmol/F81-130YesdtnzawHolmes County [facility] Memorial HospitalCreatinine [Mass/volume] in Serum or PlasmaOrdered By: Jared Louis 86-11-0113Shrakabodw [Mass/Vol]0.94 mg/dL0.60-1.20[facility] HospitalEosinophils Auto (Bld) [#/Vol]Ordered By: Jared Louis on 70-07-7651Pusjrhflimq (Bld) [#/Vol]0.0 10*3/uL0.0-0.45[facility] HospitalEosinophils/100 WBC Auto (Bld)Ordered By: Jared Louis on 85-06-5893Ggqmjwkjdmm/100 WBC (Bld)0.3 %.[facility] HospitalErythrocyte distribution width Auto (RBC) [Ratio]Ordered By: Jared Louis on 00-36-3429Qahxbjafyzb distribution width (RBC) [Ratio] 15.0 %11.9-15.3FCleveland Clinic Medina HospitalGlobulin Calc (S) [Mass/Vol] Ordered By: Jared Louis on 50-66-1140Zvccshzh (S) [Mass/Vol]2.8 g/dL [facility] HospitalGlucose [Mass/volume] in Serum or PlasmaOrdered By: Jared Louis on 82-32-2497Qjljkqu [Mass/Vol]85 mg/bC40-731TivdiofjyHolmes County [facility]rene Memorial HospitalComment on above:ADA recommended reference rangeRandom Glucose Reference Range is dependent on time and content of last meal. Glucose of more than 200 mg/dL in a nonstressed, ambulatory subject supports the diagnosisof Diabetes Mellitus.Hematocrit Auto (Bld) [Volume fraction]Ordered By: Jared Louis on 55-12-1018Kgvqvkokxr (Bld) [Volume fraction]33.2 % 34.0-46.4FCleveland Clinic Medina HospitalHemoglobin [Mass/volume] in Blood Ordered By: Jared Louis on 71-54-0933Ofdspmmarm (Bld) [Mass/Vol]11.0 g/dL11.8-15.4FCleveland Clinic Medina HospitalLeukocytes [#/volume] corrected for nucleated erythrocytes in Blood by Automated counOrdered By: Jared Louis on 18-35-9884VUZ corrected for nucl RBC Auto (Bld) [#/Vol]9.7 10*3/uL 3.8-11.6FCleveland Clinic Medina HospitalLymphocytes Auto (Bld) [#/Vol]Ordered By: Jared Louis on 52-71-6996Plzxdibaxut (Bld) [#/Vol]1.8 10*3/uL 1.00-4.8[facility] HospitalLymphocytes/100 WBC Auto (Bld)Ordered By: Jared Louis on 74-09-6912Rxkazthyzvw/100 WBC (Bld)18.4 %.[facility] HospitalH Auto (RBC) [Entitic mass]Ordered By: Jared Louis on 75-25-5311PGQ (RBC) [Entitic mass]27.4 pg24.7-34.3FCleveland Clinic Medina HospitalMCHC Auto (RBC) [Mass/Vol]Ordered By: Jared Louis on 91-58-0188KCES (RBC) [Mass/Vol]33.0 g/dL32.0-35.0[facility] HospitalMCV Auto (RBC) [Entitic vol]Ordered By: Jared Louis on 55-67-5823IKD (RBC) [Entitic vol]83.2 oA32-502OyqniuawtHolmes County [facility] Memorial HospitalMonocytes Auto (Bld) [#/Vol]Ordered By: Jared Louis on 81-98-7918Xxjuyjmev (Bld) [#/Vol]1.4 10*3/uL0.0-0.8[facility] HospitalMonocytes/100 WBC Auto (Bld)Ordered By: Jared Louis on 04-16-2023 Monocytes/100 WBC (Bld)13.9 %.[facility] HospitalNeutrophils Auto (Bld) [#/Vol]Ordered By: Jared Louis on 37-95-8684Nhnnopkxzeq (Bld) [#/Vol]6.5 10*3/uL1.8-7.7FCleveland Clinic Medina HospitalNeutrophils/100 WBC Auto (Bld)Ordered By: Jared Louis on 46-81-9076Bsqkeybfjwv/100 WBC (Bld)67.0 %.[facility] HospitalNo Panel InformationOrdered By: Jared Louis on 96-16-0589Tipikzpgl GFR (CKD-EPI)> 60.0 mL/MinHolmes County Joel [facility]rene Memorial HospitalPharmacy Creatinine Clearance (Chem47.09[facility] HospitalNucleated erythrocytes [Presence] in Blood by Automated countOrdered By: Jared Louis on 99-04-3655Fyxscmntp RBC Auto Ql (Bld) 0.1 /100{WBC}0-0.5FCleveland Clinic Medina HospitalPlatelet mean volume Auto (Bld) [Entitic vol]Ordered By: Jared Louis on 69-72-6804Bpzntnna mean volume (Bld) [Entitic vol]7.7 fL6.3-10.7FCleveland Clinic Medina Hospital Platelets Auto (Bld) [#/Vol]Ordered By: Jared Louis on 04-16-2023 Platelets (Bld) [#/Vol]228 10*3/yV546-234NgdlkotlqHolmes County [facility] Hospital Potassium [Moles/volume] in Serum or PlasmaOrdered By: Jared Louis on 62-61-3572Knobuylsp [Moles/Vol]3.9 mmol/L3.5-5.1FCleveland Clinic Medina HospitalPrealbumin [Mass/volume] in Serum or PlasmaOrdered By: Jared Louis on 84-09-0371Sgbaewcyic [Mass/Vol]23.4 mg/dL17.0-34.0[facility] HospitalProtein [Mass/volume] in Serum or PlasmaOrdered By: Jared Louis on 73-42-2319Booytus [Mass/Vol]6.2 g/dL6.4-8.9[facility] HospitalRBC Auto (Bld) [#/Vol]Ordered By: Jared Louis on 18-09-6195TIL (Bld) [#/Vol]3.99 10*6/uL3.60-5.00[facility] Luther[facility] Hospitalerum or plasma albumin/globulin mass ratioOrdered By: Jared Louis on 25-59-9823Opvtonx/Globulin [Mass ratio]1.2 {ratio}[facility] Hospitalerum or plasma anion gap determinationOrdered By: Jared Louis on 63-45-8754Lynik gap [Moles/Vol]12.4 mmol/L6.0-15.0 [facility] Hospitalodium [Moles/volume] in Serum or PlasmaOrdered By: Jared Louis on 66-30-0741Esvonz [Moles/Vol]142 mmol/W992-303 [facility] HospitalUrea nitrogen [Mass/volume] in Serum or Plasma Ordered By: Jared Louis on 55-15-7316Snyz nitrogen [Mass/Vol]34 mg/dL 7-[facility] HospitalWBC Auto (Bld) [#/Vol]Ordered By: Jared Louis on 94-43-1550TEQ (Bld) [#/Vol]9.7 10*3/uL3.8-11.6FCleveland Clinic Medina HospitalBasophils Auto (Bld) [#/Vol]Ordered By: Devin Moreau on 03-26-2023 Basophils (Bld) [#/Vol]0.1 10*3/uL0.0-0.2FCleveland Clinic Medina Hospital Basophils/100 WBC Auto (Bld)Ordered By: Devin Moreau on 04-97-9830Fgixwwdrq/100 WBC (Bld)1.0 %.[facility] HospitalCalcium [Mass/volume] in Serum or PlasmaOrdered By: Devin Moreau on 71-05-1577Ijoazza [Mass/Vol]9.4 mg/dL8.6-10.3 [facility] HospitalCarbon dioxide, total [Moles/volume] in Serum or PlasmaOrdered By: Devin Moreau on 95-92-3739XU9 [Moles/Vol]30.1 mmol/L21.0-31.0 [facility] HospitalChloride [Moles/volume] in Serum or Plasma Ordered By: Devin Moreau on 87-51-1414Feeptnxt [Moles/Vol]102 mmol/L98-107 [facility] HospitalCreatinine [Mass/volume] in Serum or Plasma Ordered By: Devin Moreau on 11-33-5937Hjlgzilqoq [Mass/Vol]1.19 mg/dL0.60-1.20 [facility] HospitalEosinophils Auto (Bld) [#/Vol]Ordered By: Devin Moreau on 74-67-1944Mrrgukwtfni (Bld) [#/Vol]0.3 10*3/uL0.0-0.45[facility] HospitalEosinophils/100 WBC Auto (Bld)Ordered By: Devin Moreau on 94-16-5575Xcmbdzsdkvy/100 WBC (Bld)4.7 %.[facility] Erythrocyte distribution width Auto (RBC) [Ratio]Ordered By: Devin Moreau on 88-83-7747Dojjyifmyte distribution width (RBC) [Ratio]15.2 %11.9-15.3FCleveland Clinic Medina HospitalGlucose [Mass/volume] in Serum or PlasmaOrdered By: Devin Moreau on 46-06-3728Vadbngw [Mass/Vol]95 mg/kS57-471FaibejkbxHolmes County [facility] Memorial HospitalComment on above:ADA recommended reference rangeRandom Glucose Reference Range is dependent on time and content of last meal. Glucose of more than 200 mg/dL in a nonstressed, ambulatory subject supports the diagnosisof Diabetes Mellitus.Hematocrit Auto (Bld) [Volume fraction]Ordered By: Devin Moreau on 74-19-2348Bdjaxlrdot (Bld) [Volume fraction]37.7 %34.0-46.4FCleveland Clinic Medina HospitalHemoglobin [Mass/volume] in BloodOrdered By: Devin Moreau on 98-65-8536Mhsdhzjpqx (Bld) [Mass/Vol]12.2 g/dL11.8-15.4FCleveland Clinic Medina HospitalLeukocytes [#/volume] corrected for nucleated erythrocytes in Blood by Automated counOrdered By: Devin Moreau on 15-15-7394VOE corrected for nucl RBC Auto (Bld) [#/Vol]6.0 10*3/uL3.8-11.6FCleveland Clinic Med[facility] Hospital Lymphocytes Auto (Bld) [#/Vol]Ordered By: Devin Moreau on 29-86-4344Koktchsxvgs (Bld) [#/Vol]1.7 10*3/uL1.00-4.8[facility] HospitalLymphocytes/100 WBC Auto (Bld)Ordered By: Devin Moreau on 94-95-7305Ngyugugtosm/100 WBC (Bld)28.9 %.[facility] HospitalMCH Auto (RBC) [Entitic mass]Ordered By: Devin Moreau on 72-29-1133ORF (RBC) [Entitic mass]27.4 pg24.7-34.3FCleveland Clinic Medina HospitalMCHC Auto (RBC) [Mass/Vol]Ordered By: Dvein Moreau on 18-77-5370OYTE (RBC) [Mass/Vol]32.4 g/dL32.0-35.0[facility] HospitalMCV Auto (RBC) [Entitic vol]Ordered By: Devin Moreau on 74-11-5580KWM (RBC) [Entitic vol]84.5 gA12-712IkhuqhvunHolmes County [facility]rene Memorial HospitalMonocytes Auto (Bld) [#/Vol]Ordered By: Devin Moreau on 68-61-3065Tygoybnqs (Bld) [#/Vol]0.6 10*3/uL 0.0-0.8[facility] HospitalMonocytes/100 WBC Auto (Bld)Ordered By: Devin Moreau on 67-90-3918Rcnyjfdnt/100 WBC (Bld)9.8 %.[facility] HospitalNeutrophils Auto (Bld) [#/Vol]Ordered By: Devin Moreau on 03-26-2023 Neutrophils (Bld) [#/Vol]3.3 10*3/uL1.8-7.7FCleveland Clinic Medina Hospital Neutrophils/100 WBC Auto (Bld)Ordered By: Devin Moreau on 03-26-2023 Neutrophils/100 WBC (Bld)55.6 %.[facility] HospitalNo Panel InformationOrdered By: Devin Moreau on 78-45-2973Ebvnkaajs GFR (CKD-EPI)48.279 mL/MinHolmes County Joel P[facility]rene Memorial HospitalPharmacy Creatinine Clearance (ChemN/A [facility] HospitalNucleated erythrocytes [Presence] in Blood by Automated countOrdered By: Devin Moreau on 52-89-6874Ohjoxgdid RBC Auto Ql (Bld) 0.1 /100{WBC}0-0.5FCleveland Clinic Medina HospitalPlatelet mean volume Auto (Bld) [Entitic vol]Ordered By: Devin Moreau on 00-91-3507Jvhzngsp mean volume (Bld) [Entitic vol]8.4 fL6.3-10.7FCleveland Clinic Medina HospitalPlatelets Auto (Bld) [#/Vol]Ordered By: Devin Moreau on 99-00-3237Dwqigpwlx (Bld) [#/Vol]242 10*3/hZ905-543EwxcucuclHolmes County Joel [facility]omerene Memorial HospitalPotassium [Moles/volume] in Serum or PlasmaOrdered By: Devin Moreau on 77-66-2690Xqgovjbml [Moles/Vol]4.4 mmol/L 3.5-5.1FCleveland Clinic Medina HospitalRBC Auto (Bld) [#/Vol]Ordered By: Devin Moreau on 21-76-9236QCW (Bld) [#/Vol]4.46 10*6/uL3.60-5.00[facility] Hospitalerum or plasma anion gap determinationOrdered By: Devin Moreau on 95-95-7900Phdhq gap [Moles/Vol]12.3 mmol/L6.0-15.0[facility] Hospitalodium [Moles/volume] in Serum or PlasmaOrdered By: Devin Moreau on 73-36-6761Wkugmp [Moles/Vol]140 mmol/J137-305SezpyrdhnHolmes County [facility] Hospital Urea nitrogen [Mass/volume] in Serum or PlasmaOrdered By: Devin Moreau on 47-17-8001Ibfc nitrogen [Mass/Vol]38 mg/dL7-25[facility] WBC Auto (Bld) [#/Vol]Ordered By: Devin Moreau on 92-08-8546ZEE (Bld) [#/Vol]6.0 10*3/uL3.8-11.6FCleveland Clinic Medina HospitalHuman papilloma virus 16+18+31+33+35+39+45+51+52+56+58+59+66+68 DNA [Presence] in CerOrdered By: Radha Moreau on 85-39-0288PGP 16+18+31+33+35+39+45+51+52+56+58+59+66+68 DNA Probe+sig amp Ql (Cvx)NegativeNegativeHolmes County Joel Pomerene Memorial HospitalComment on above:This nucleic acid amplification test detects fourteen high-risk HPV types (16,18,31,33,35,39,45,51,52,56,58,59,66,68)without differentiation.Performed at: - [facility] [address] [place], [place] [id number] Director: Estella Broderick MD, Phone: [phone] at: =G - [facility] [address] StreetSathya mack, [place] [id number] Director: Estella Broderick MD, Phone: [phone] Panel InformationOrdered By: Radha Moreau on 12-51-1403GD Pap w/Ct-Ng & HPV Rflx (Off-SiteNote.[facility] HospitalComment on above:TESTS RESULT FLAG UNITS REF RANGE LAB Clinician Provided Cytology Information Source.............Vagina No. of containers..01 ThinPrep VialDIAGNOSIS: 01 NEGATIVE FOR INTRAEPITHELIAL LESION OR MALIGNANCY.Specimen adequacy: 01 Satisfactory for evaluation. Endocervical component may not be distinguished in cases of atrophy.Performed by: Rolly Castellano, Church Administrator ([facility]). 01Note: Note 01 The Pap smear is a screening test designed to aid in the detection of premalignant and malignant conditions of the uterine cervix. It is not a diagnostic procedure and should not be used as the sole means of detecting cervical cancer. Both false-positive and false- negative reports do occur.Test Methodology: Note 01 This liquid based ThinPrep(R)pap test was screened with the use of an image guided system.HPV Genotype Reflex Note 01 Criteria not met, HPV Genotype not performed. FLAG LEGEND: L-Low Normal,H-High Normal,LL-Alert Low,HH-Alert High <-Panic Low,>- Panic High,A-Abnormal,AA-Critical Abnormal Performed at:[address] [facility] [id number] Estella Broderick MD, Ijospusznv - DIPSTICKon 15-79-3195Stkskvebrw (U) clearSaperion Other Bilirubin Ql (U)NegativeBuildMyMove [employer] Other Color (U)yellowBuildMyMove [employer] Other Glucose Ql (U)TheRouteBoxSaperion Other Hemoglobin Ql (U)[facility] HospitalBuildMyMove [employer] Other Ketones Ql (U)NegativeBuildMyMove [employer] Other Leukocyte esterase Test strip Ql (U)traceBuildMyMove [employer] Other Nitrite Ql (U)TheRouteBoxBuildMyMove [employer] Other pH (U)6.0 [pH][employer] Other Protein Ql (U)+[employer] Other Specific gravity (U) [Rel density]1.010[place] [employer] Other Urobilinogen (U) [Mass/Vol]off chartCincinnati [facility] [employer] [facility] [employer] Other Urinalysis - DIPSTICKBuildMyMove [employer] Other Creatinine (Bld) [Mass/Vol]Ordered By: Devin Moreau on 53-57-7110Wzbcddxazj [Mass/Vol]0.9 mg/dL0.6-1.3FCleveland Clinic Medina Hospital Comment on above:ER/ESD physician is notified/shown all ISTAT results.Critical values may be confirmed by laboratorytesting ifdeemed necessary by ER attending doctor.No Panel InformationOrdered By: Devin Moreau on 44-42-4559Hvqhflx Estimated GFR (eGFR)> 60.0[facility] HospitalXR dexa axial skeletonon 23-27-1824CS dexa axial skeletonNorth [facility] [employer] Other echocardiogramon 27-95-3902CryejcwxtsbsmaabArh[address], [address] [place] [address] TRANSTHORACIC ECHOCARDIOGRAM REPORT Patient Name: RENUKA Yissel Reading Physician: [id number] Bryce Hendrickson MD [facility] Study Date: 01/25/2023 Referring BRYCE HENDRICKSON Physician: MRN/PID: [id number] PCP: Sylvester Jacob Accession/Order#: [id number] Department [facility] Location: Date of : 1950 Fellow: Gender: F Nurse: Admit Date: Mental Health Advanced Practice Nurse: Светлана Mantilla [facility], T Height: 154.94 cm CC Report to: Weight: 71.22 kg Study Type: Echocardiogram BSA: 1.70 m2 Blood Pressure: 120 /76 mmHg Diagnosis/ICD: I34.0-Nonrheumatic mitral (valve) insufficiency Indication: Abnormal EKG-LBBB, Chest Pain, HTN, Overweight Procedure/CPT: Echo Complete w Full Doppler-[id number] Study Detail: The following Echo studies were performed: 2D, M-Mode, Doppler and color flow. PHYSICIAN INTERPRETATION: Left Ventricle: Left ventricular systolic function is mildly decreased, with an estimated ejection fraction of 50%. The left ventricular cavity size is normal. Spectral Doppler shows a normal patternof left ventricular diastolic filling. Interventricular septal motion [...] normal. There is no indication of pulmonic valveregurgitation. Pericardium: There is no pericardial effusion noted. [...] 0.7 m/s (0.6-0.9m/s) PV Max P.8 mmHg [id number] Bryce Hendrickson MD, [facility] Electronically signed on 01/26/2023 at 12:50:05 PM Final NormalAspen Valley HospitalPROF CHEM 8 (BAS METB)on 08-18-2022 Anion gap [Moles/Vol]9.9 mmol/LNormalThe [facility] HospitalComment on above: Performed By: #### HSTROPN #### [facility] [address] [address] [address] Isabell PeñaCalcium [Mass/Vol]9.3 mg/dLNormal8.5-10.1The [facility] Comment on above:Performed By: #### HSTROPN #### [facility] [address] [place], [place] [address] Dr. Isabell PeñaChloride [Moles/Vol]103 mmol/BDunyvz83-556Rtu [facility] Comment on above:Performed By: #### HSTROPN #### [facility] [address] [address] [address] Isabell PeñaCO2 [Moles/Vol]31.7 mmol/HTgxlda86.0-32.0The [facility] Comment on above:Performed By: #### HSTROPN #### [facility] [address] [address] [address] Isabell PeñaCreatinine [Mass/Vol]0.98 mg/dLNormal0.55-1.02The [facility] HospitalComment on above:Performed By: #### HSTROPN #### [facility] [address] [address] [address] Whyte ChangEGFR-AF SWISS>60Normal>=60The [facility] HospitalComment on above:Performed By: #### HSTROPN #### [facility] [address] [address] [address] Isabell PerezGFR-NON AF YQTUSNKJ32 mL/min/1.23q8Zzucbvyecj low>=60The [facility] HospitalComment on above:Performed By: #### HSTROPN #### [facility] [address] [address] [address] Isabell PeñaGlucose [Mass/Vol]111 mg/dLCritically sulm56-929Ypj [facility] HospitalComment on above:Performed By: #### HSTROPN #### [facility] [address] [address] [address] Isabell PeñaPotassium [Moles/Vol]3.6 mmol/LNormal3.5-5.1The [facility] Comment on above:Performed By: #### HSTROPN #### [facility] [address] [address] [address] Isabell PeñaSodium [Moles/Vol]141 mmol/GMqfcjg224-787Amm [facility] Comment on above:Performed By: #### HSTROPN #### [facility] [address] [address] [address] Isabell PeñaUrea nitrogen [Mass/Vol]20.0 mg/dLCritically high7.0-18.0The [facility] HospitalComment on above:Performed By: #### HSTROPN #### [facility] [address] [address] [address] Isabell Barrera nitrogen/Creatinine [Mass ratio]20.4 mg/mgNormGuernsey Memorial HospitalComment on above:Performed By: #### HSTROPN #### [facility] [address] [address] [address] Isabell Matthews CARDIAC STRESS/REST INJECTIONon 43-79-1419HFM CARDIAC STRESS/REST INJECTIONMRN: [id number] Patient Name: RENUKA OWEN STUDY: MYOCARDIAL PERFUSION STRESS TEST WITH LEXISCAN Performing facility: [facility], [address] [place] [address], [address] [id number] [facility] Provider: Bryce Hendrickson MD, FACC PCP: Dr. Roseanna Jacob Supervising provider: Bryce Hendrickson MD, FACC INDICATION: Chest Pain; LBBB HISTORY: Gender: F; Age: 71 y/o ; Height: 0 cm; Weight: 0 kg. Abnormal EKG; HTN; Chest Pain; Denies smoking. COMPARISON: No comparison. ACCESSION NUMBER(S): [id number]; [id number]; [id number] ORDERING CLINICIAN: BRYCE HENDRICKSON TECHNIQUE: ONE DAY protocol. Stress injection: Date:06-10-22, 34.1 mCi of Myoview IV 20 seconds after rapid injection of Lexiscan. Rest injection: Date: 06-10-22, 11.0 mCi of Myoview IV at rest. The patient had a rapid injection of 0.4 mg of Lexiscan IV over 10 seconds. Imaging was performed by gated tomographic technique. Reason for Lexiscan: dizziness/unsteady/fall risk STRESS TEST DATA: Resting heart rate [...] for comparison. Electronically signed by: BRYCE HENDRICKSON MDWayne Memorial HospitalNo Panel Informationon 74-43-7545SfgsxxTYOlivia Hospital and Clinics 250 DO Work Phone: Urinalysis - DIPSTICKon 68-68-2850Tzuxybnjjb (U)cloudy [employer] Other Bilirubin Ql (U)smallPrimcogent Solutions Other Color (U)yellowPrimcogent Solutions Other Glucose Ql (U)NegativePrimcogent Solutions Other Hemoglobin Ql (U)largePrimcogent Solutions Other Ketones Ql (U)tracePrimcogent Solutions Other Leukocyte esterase Test strip Ql (U)tracePrimcogent Solutions Other Nitrite Ql (U)NegativePrimcogent Solutions Other pH (U)8.5 [pH][employer] Other Protein Ql (U)[employer] Other Specific gravity (U) [Rel density]1.010[employer] Other Urobilinogen (U) [Mass/Vol]0.2 mg/dLSaperion Other Urinalysis - DIPSTICKrth [employer] Other cbc W Auto Differential panel (Bld)on 05-19-2022 Basophils (Bld) [#/Vol]0.09 10*3/uL<0.11 k/uLOhiohealth Van Wert HospitalBasophils/100 WBC (Bld)0.8 %[facility] HospitalDifferential cell count method Nom (Bld)AutoCleveland Buffalo HospitalEosinophils (Bld) [#/Vol]0.26 10*3/uL<0.46 k/uLOhiohealth Van Wert Hospital Eosinophils/100 WBC (Bld)2.3 %[facility] HospitalErythrocyte distribution width (RBC) [Ratio]16.4 %High11.5 - 15.0 %[facility] HospitalHematocrit (Bld) [Volume fraction]36.6 %36.0 - 46.0 %[facility] HospitalHemoglobin (Bld) [Mass/Vol]11.6 g/dL 11.5 - 15.5 g/dLOhiohealth Van Wert HospitalImmature granulocytes (Bld) [#/Vol]0.05 10*3/uL <0.10 k/uLOhiohealth Van Wert HospitalImmature granulocytes/100 WBC (Bld)0.4 %[facility] HospitalLymphocytes (Bld) [#/Vol]1.87 10*3/uL1.00 - 4.00 k/uLOhiohealth Van Wert Hospital Lymphocytes/100 WBC (Bld)16.3 %[facility] HospitalH (RBC) [Entitic mass]28.0 pg 26.0 - 34.0 pgCOhioHealth Grady Memorial HospitalHC (RBC) [Mass/Vol]31.7 g/dL30.5 - 36.0 g/dL [facility] HospitalV (RBC) [Entitic vol]88.4 fL80.0 - 100.0 fLCKettering Health Main Campus Monocytes (Bld) [#/Vol]1.17 10*3/uLHigh<0.87 k/uLOhiohealth Van Wert HospitalMonocytes/100 WBC (Bld)10.2 %[facility] HospitalNeutrophils (Bld) [#/Vol]8.04 10*3/uLHigh1.45 - 7.50 k/uLOhiohealth Van Wert HospitalNeutrophils/100 WBC (Bld)70.0 %[facility] Nucleated RBC (Bld) [#/Vol]<0.01 k/uLOhiohealth Van Wert HospitalNucleated RBC/100 WBC (Bld) [Ratio]0.0 /100 WBCOhiohealth Van Wert HospitalPlatelet mean volume (Bld) [Entitic vol]9.4 fL9.0 - 12.7 fLClevelsandhills regional medical center ClinicPlatelets (Bld) [#/Vol]389 10*3/uL150 - 400 k/uL [facility] HospitalRBC (Bld) [#/Vol]4.14 10*6/uL3.90 - 5.20 m/uLOhiohealth Van Wert HospitalWBC (Bld) [#/Vol]11.48 10*3/uLHigh3.70 - 11.00 k/uLOhiohealth Van Wert HospitalComprehensive metabolic 2000 panelon 79-80-6437Ztapgsv [Mass/Vol]4.1 g/dL3.9 - 4.9 g/dL [facility] HospitalP [Catalytic activity/Vol]81 U/L34 - 123 U/LCleveland Buffalo Hospital ALT [Catalytic activity/Vol]9 U/L7 - 38 U/LCleveland ClinicAnion gap [Moles/Vol] 9 mmol/L9 - 18 mmol/LCleveland ClinicAST [Catalytic activity/Vol]18 U/L13 - 35 U/LCleveland Buffalo HospitalBilirubin [Mass/Vol]0.5 mg/dL0.2 - 1.3 mg/dLOhiohealth Van Wert Hospital Calcium [Mass/Vol]9.9 mg/dL8.5 - 10.2 mg/dLOhiohealth Van Wert HospitalChloride [Moles/Vol] 99 mmol/L97 - 105 mmol/LCleveland ClinicCO2 [Moles/Vol]29 mmol/L22 - 30 mmol/L [facility] HospitalCreatinine [Mass/Vol]0.78 mg/dL0.58 - 0.96 mg/dLOhiohealth Van Wert Hospital Estimated Glomerular Filtration Rate81 mL/min/1.73m>=60 mL/min/1.73mCleveland Buffalo HospitalGlucose [Mass/Vol]118 mg/tWShzk84 - 99 mg/dLOhiohealth Van Wert HospitalPotassium [Moles/Vol]3.6 mmol/LLow3.7 - 5.1 mmol/LCleveland ClinicProtein [Mass/Vol]6.9 g/dL6.3 - 8.0 g/dLCrystal Clinic Orthopedic Centerodium [Moles/Vol]137 mmol/L136 - 144 mmol/L [facility] HospitalUrea nitrogen [Mass/Vol]19 mg/dL7 - 21 mg/dLOhiohealth Van Wert Hospital Office Visit (Cardiology)on 34-68-2153Rhctzf-up visitDiagnoses/Problems Assessed Essential hypertension (401.9) (I10) LBBB (left [...] Cardiac Stress/Rest Nuclear Med Order; Status:Active; Requested for:10Jun2022; Radiologist to Determine Optimal Study : Y [...] problems noted below but recently was at [facility] for chest pain and had ruled [...] chest pain requiring an ER visit to [facility]. Assessment was negative in the ER. Nuclear stress test is recommended and will be scheduled Bryce Hendrickson MD, [facility] Surgical History Problems History of Appendectomy History [...] Recorded: 12May2022 11:27AM Heart Rate72, R Radial Ogkbypwx785, RUE, Sitting Yppfxdutj99, RUE, Sitting Height5 ft 1 in Fdbqri266 lb BMI Tnrertllkj00.67 kg/m2 BSA Calculated1.7 Tobacco Useb) No PH (more content not included)...NormalUH TouchworksTobacco Screening.on 25-74-6967Atzzh depression screening assessmentNoNew [facility]ide Emergency Hospital [employer] DO Work Phone: Fall risk assessmenta) No falls within the last year [facility] [employer] DO Work Phone: Tobacco use status CPHSb) NoMCascade Valley Hospital [employer] DO Work Phone: CTA CHEST WO W CONon [id number] CHEST WO W CON EXAMINATION: CTA CHEST [...] Electronically authenticated by: EMORY WILSON Date: 2022-05-11 00:34NormGuernsey Memorial HospitalCovid-19 PCR (CVDTBH)on 08-07-9538ONJR-CoV-2 (COVID-19) RNA JANET+probe Ql (Unsp spec)Not detectedNormalNOT DETECTEDThe [facility] Comment on above:Result Comment: When diagnostic testing is negative, the [...] for this test is supported by the [employer] Worker of Health and Human Service's declaration that circumstances exist to justify the emergency use of in vitro diagnostics for the detection and/or diagnosis of the virus that causes COVID-19. This EUA will remain in effect for the duration of the COVID-19 declaration justifying emergency of IVDs, unless it is terminated or revoked by the FDA (after which the test may no longer be used).Performed By: #### LACT #### [facility] [address] [place] [address] Dr. Isabell Osuna M/2D COMPLETEon [id number] M/2D COMPLETE Patient: RENUKA OWEN Exam Date: 05/11/2022 : 1950 Gender:F Ordering : VIVI CHAMBERS . Admission #: [id number] Family : DR SYLVESTER JACOB D.O. Order #: [id number] CLICK HERE TO VIEW EXAM ECHOCARDIOGRAM REPORT [...] by: Kun Kent M.D. on 05/14/2022 at 10:30[facility] Medical CenterASSIUMon 56-45-4652Qqjpbbhgh [Moles/Vol]3.5 mmol/LNormal3.5-5.1[facility] on above:Performed By: #### K #### [facility] [address] [place] [address] Dr. Isabell Longoria, [facility] SENSITIVITYon 80-97-9204ODQXZR34.0 pg/mLNormal 4.0-51.3TSelect Medical [facility], [facility] on above:Result Comment: CUT-OFF POINTS HAVE BEEN ESTABLISHED BASED ON THE FOURTH UNIVERSAL DEFINITIONS OF MYOCARDIAL INFARCTION. THE UPPER REFERENCE LIMIT (URL) OF TROPONIN, DEFINED THE 99TH PERCENTILE OF cTnI DISTRIBUTION IN A REFERENCE POPULATION, HAS BEEN CONFIRMED THE DECISION THRESHOLD FOR OR DIAGNOSIS.Performed By: #### HSTROPN #### [facility] [address] [place] [address] Dr. Isabell DealOP15.3 pg/mLNormal4.0-51.3TSelect Medical Specialty [facility], Inc on above:Result Comment: CUT-OFF POINTS HAVE BEEN ESTABLISHED BASED ON THE FOURTH UNIVERSAL DEFINITIONS OF MYOCARDIAL INFARCTION. THE UPPER REFERENCE LIMIT (URL) OF TROPONIN, DEFINED THE 99TH PERCENTILE OF cTnI DISTRIBUTION IN A REFERENCE POPULATION, HAS BEEN CONFIRMED THE DECISION THRESHOLD FOR OR DIAGNOSIS.Performed By: #### HSTROPN #### [facility] [address] [place] [address] Dr. Isabell HollowayTROP13.2 pg/mLNormal4.0-51.3TSelect Medical [facility], [facility] on above:Result Comment: CUT-OFF POINTS HAVE BEEN ESTABLISHED BASED ON THE FOURTH UNIVERSAL DEFINITIONS OF MYOCARDIAL INFARCTION. THE UPPER REFERENCE LIMIT (URL) OF TROPONIN, DEFINED THE 99TH PERCENTILE OF cTnI DISTRIBUTION IN A REFERENCE POPULATION, HAS BEEN CONFIRMED THE DECISION THRESHOLD FOR OR DIAGNOSIS.Performed By: #### HSTROPN #### [facility] [address] [place] [address] Dr. Isabell Mendez 24-84-9728Nnkaskxetwj peptide B (Bld) [Mass/Vol]663.0 pg/mL Normal<=900.0The [facility] HospitalComment on above:Performed By: #### BNP, CMP, HSTROPN #### [facility] [address] [place] [address] Dr. Isabell Munoz AUTO DIFFon 01-24-5773ZDMH #0.1 103/ulNormal0.0-0.1The [facility] HospitalComment on above:Performed By: #### HSTROPN #### [facility] [address] [place] [address] Dr. Isabell Arangosophils/100 WBC (Bld)0.4 %Normal0.2-2.0[facility] Comment on above:Performed By: #### HSTROPN #### [facility] [address] [place] [address] Dr. Isabell Mayorga #0.2 103/ulNormal0.0-0.7The [facility] HospitalComment on above: Performed By: #### HSTROPN #### [facility] [address] [place] [address] Dr. Isabell Perezosinophils/100 WBC (Bld)1.4 %Normal0.9-7.0The [facility] Comment on above:Performed By: #### HSTROPN #### [facility] [address] [place] [address] Dr. Isabell Perezrythrocyte distribution width (RBC) [Ratio]15.7 %Critically high 11.0-15.0The [facility] HospitalComment on above:Performed By: #### HSTROPN #### [facility] [address] [address] [address] Isabell PeñaHematocrit (Bld) [Volume fraction]32.9 %Critically low36.0-48.0 The [facility] HospitalComment on above:Performed By: #### HSTROPN #### [facility] [address] [place] [address] Dr. Isabell PeñaHemoglobin (Bld) [Mass/Vol]11.4 g/dLCritically low12.0-16.0The [facility] HospitalComment on above:Performed By: #### HSTROPN #### [facility] [address] [place] [address] Dr. Isabell Driscoll #0.06 10e3/ulCritically high0.00-0.03The [facility] Comment on above:Performed By: #### HSTROPN #### [facility] [address] [place] [address] Dr. Isabell Driscoll %0.5 %Normal0.0-0.5The [facility] HospitalComment on above: Performed By: #### HSTROPN #### [facility] [address] [place] [address] Dr. Isabell Stein #1.6 103/ulNormal1.2-3.8The [facility] HospitalComment on above:Performed By: #### HSTROPN #### [facility] [address] [place] [address] Dr. Isabell Wisemphocytes/100 WBC (Bld)13.7 %Critically low20.5-60.0The [facility] HospitalComment on above:Performed By: #### HSTROPN #### [facility] [address] [place] [address] Dr. Isabell DempseyUAL DIFF REQNONormalThe [facility] HospitalComment on above: Performed By: #### HSTROPN #### [facility] [address] [place] [address] Dr. Isabell Juárez (RBC) [Entitic mass]28.3 tlTpmpzm02.7-34.0The [facility] HospitalComment on above:Performed By: #### HSTROPN #### [facility] [address] [place] [address] Dr. Isabell GardnerHC (RBC) [Mass/Vol]34.7 g/cXDzhlll03.9-35.2The [facility] HospitalComment on above:Performed By: #### HSTROPN #### [facility] [address] [place] [address] Dr. Isabell Jones (RBC) [Entitic vol]81.6 xITpsnhm03.0-99.0The [facility] HospitalComment on above:Performed By: #### HSTROPN #### [facility] [address] [place] [address] Dr. Isabell Gonzalez #1.2 103/ulCritically high0.3-0.8The [facility] Comment on above:Performed By: #### HSTROPN #### [facility] [address] [place] [address] Dr. Isabell Grandaocytes/100 WBC (Bld)10.7 %Normal1.7-12.0[facility] Comment on above:Performed By: #### HSTROPN #### [facility] [address] [place] [address] Dr. Isabell Malloy #8.3 103/ulCritically high1.4-6.5The [facility] Comment on above:Performed By: #### HSTROPN #### [facility] [address] [place] [address] Dr. Isabell Bensonophils/100 WBC (Bld)73.3 %Npeozl16.0-75.0The [facility] HospitalComment on above:Performed By: #### HSTROPN #### [facility] [address] [place] [address] Dr. Isabell Butterfield mean volume (Bld) [Entitic vol]8.4 fLCritically low 9.5-13.5The [facility] HospitalComment on above:Performed By: #### HSTROPN #### [facility] [address] [place] [address] Dr. Isabell PeñaPLT380 103/huMiinlu738-435Mbb [facility] on above: Performed By: #### HSTROPN #### [facility] [address] [place] [address] Dr. Isabell PeñaRBC4.03 106/ulCritically low4.20-5.40The [facility] on above:Performed By: #### HSTROPN #### [facility] [address] [place] [address] Dr. Isabell PeñaWBC11.4 103/ulCritically high4.0-11.0The [facility] on above:Performed By: #### HSTROPN #### [facility] [address] [place] [address] Dr. Isabell PeralesDIMERon 34-73-0717U-DIMER2.39 mg/L FEUCritically high<=0.59The [facility] on above:Performed By: #### DDIM #### [facility] [address] [place] [address] Dr. Isabell Ruiz COMMENTSSEE [facility] on above:Result Comment: Increases in D-Dimer concentration observed with thromboembolic events [...] stress, and generalized hospitalization. Performed By: #### DDIM #### [facility] [address] [place] [address] Dr. Isabell Quintanilla 14(COMP METB)on 78-77-7750Yhbxcft [Mass/Vol]3.4 g/dLNormal 3.4-5.0The [facility] on above:Performed By: #### BNP, CMP, HSTROPN #### [facility] [address] [address] [address] Isabell PeñaAlbumin/Globulin [Mass ratio]1.1 {ratio}NormalThe [facility] HospitalComment on above:Performed By: #### BNP, CMP, HSTROPN #### [facility] [address] [address] [address] Isabell MeekP [Catalytic activity/Vol]99 U/NQdbkrz98-147Oyb [facility] HospitalComment on above:Performed By: #### BNP, CMP, HSTROPN #### [facility] [address] [address] [address] Isabell MeekT [Catalytic activity/Vol]15 U/GFltpyn86-66Qxy [facility] HospitalComment on above:Performed By: #### BNP, CMP, HSTROPN #### [facility] [address] [place] [address] Dr. Isabell Robbinson gap [Moles/Vol]12.0 mmol/LNormalThe [facility] Comment on above:Performed By: #### BNP, CMP, HSTROPN #### [facility] [address] [place] [address] Dr. Isabell PeñaAST [Catalytic activity/Vol]20 U/NIbhnmz68-36Wln [facility] HospitalComment on above:Performed By: #### BNP, CMP, HSTROPN #### [facility] [address] [place] [address] Dr. Isabell PeñaBilirubin [Mass/Vol]0.4 mg/dLNormal0.2-1.0The [facility] Comment on above:Performed By: #### BNP, CMP, HSTROPN #### [facility] [address] [place] [address] Dr. Isabell PeñaCalcium [Mass/Vol]8.6 mg/dLNormal8.5-10.1The [facility] Comment on above:Performed By: #### BNP, CMP, HSTROPN #### [facility] [address] [place] [address] Dr. Isabell PeñaChloride [Moles/Vol]99 mmol/VYyvoqs57-034Lqk [facility] Comment on above:Performed By: #### BNP, CMP, HSTROPN #### [facility] [address] [address] [address] Isabell PeñaCO2 [Moles/Vol]32.2 mmol/LCritically high21.0-32.0The [facility] HospitalComment on above:Performed By: #### BNP, CMP, HSTROPN #### [facility] [address] [address] [address] Isabell PeñaCreatinine [Mass/Vol]0.86 mg/dLNormal0.55-1.02The [facility] HospitalComment on above:Performed By: #### BNP, CMP, HSTROPN #### [facility] [address] [place] [address] Dr. Whyte ChangEGFR-AF SWISS>60Normal>=60The [facility] HospitalComment on above:Performed By: #### BNP, CMP, HSTROPN #### [facility] [address] [place] [address] Dr. Isabell PerezGFR-NON AF SWISS>60Normal>=60The [facility] HospitalComment on above:Performed By: #### BNP, CMP, HSTROPN #### [facility] [address] [place] [address] Dr. Isabell PeñaGlobulin (S) [Mass/Vol]3.2 g/dLNormalThe [facility] HospitalComment on above:Performed By: #### BNP, CMP, HSTROPN #### [facility] [address] [place] [address] Dr. Isabell PeñaGlucose [Mass/Vol]111 mg/dLCritically mfci80-093Bby [facility] HospitalComment on above:Performed By: #### BNP, CMP, HSTROPN #### [facility] [address] [place] [address] Dr. Isabell PeñaPotassium [Moles/Vol]3.2 mmol/LCritically low3.5-5.1The [facility] HospitalComment on above:Performed By: #### BNP, CMP, HSTROPN #### [facility] [address] [address] [address] Isabell PeñaProtein [Mass/Vol]6.6 g/dLNormal6.4-8.2[facility] Comment on above:Performed By: #### BNP, CMP, HSTROPN #### [facility] [address] [address] [address] Isabell PeñaSodium [Moles/Vol]140 mmol/JPauyuy699-353Psa [facility] Comment on above:Performed By: #### BNP, CMP, HSTROPN #### [facility] [address] [place] [address] Dr. Isabell PeñaUrea nitrogen [Mass/Vol]22.0 mg/dLCritically high7.0-18.0The [facility] HospitalComment on above:Performed By: #### BNP, CMP, HSTROPN #### [facility] [address] [address] [address] Isabell Barrera nitrogen/Creatinine [Mass ratio]25.6 mg/mgNormalThe [facility] HospitalComment on above:Performed By: #### BNP, CMP, HSTROPN #### [facility] [address] [place] [address] Dr. Isabell Longoria, HIGH SENSITIVITYon 84-61-4117TDIRAQ4.6 pg/mLNormal 4.0-51.3The [facility] HospitalComment on above:Result Comment: CUT-OFF POINTS HAVE BEEN ESTABLISHED BASED ON THE FOURTH UNIVERSAL DEFINITIONS OF MYOCARDIAL INFARCTION. THE UPPER REFERENCE LIMIT (URL) OF TROPONIN, DEFINED THE 99TH PERCENTILE OF cTnI DISTRIBUTION IN A REFERENCE POPULATION, HAS BEEN CONFIRMED THE DECISION THRESHOLD FOR OR DIAGNOSIS.Performed By: #### BNP, CMP, HSTROPN #### [facility] [address] [place] [address] Dr. Isabell PeñaCULTURE URINEon 85-70-8724VOOWXIS URINEIsolate 1 Pseudomonas aeruginosa 10,000 cfu/mL of ORGANISM 1 Pseudomonas aeruginosa ANTIBIOTIC M.I.C RX STATUS Piperacillin/Tazobactam <=4 S F Ceftazidime 4 S F Imipenem 2 S F Amikacin <=2 S F Gentamicin <=1 S F Tobramycin <=1 S F Ciprofloxacin <=0.25 S F Levofloxacin 0.25 S FNormalThe [facility] HospitalComment on above:Performed By: #### HSTROPN #### [facility] [address] [place] [address] Dr. Isabell Munoz AUTO DIFFon 67-71-0681RPNB #0.0 103/ulNormal0.0-0.1The [facility] HospitalComment on above:Performed By: #### HSTROPN #### [facility] [address] [place] [address] Dr. Isabell PeñaBasophils/100 WBC (Bld)0.2 %Normal0.2-2.0The [facility] Comment on above:Performed By: #### HSTROPN #### [facility] [address] [place] [address] Dr. Isabell Mayorga #0.1 103/ulNormal0.0-0.7The [facility] HospitalComment on above: Performed By: #### HSTROPAntonina #### [facility] [address] [place] [address] Dr. Isabell Perezosinophils/100 WBC (Bld)0.3 %Critically low0.9-7.0The [facility] HospitalComment on above:Performed By: #### HSTROPN #### [facility] [address] [place] [address] Dr. Isabell Perezrythrocyte distribution width (RBC) [Ratio]15.4 %Critically high 11.0-15.0The [facility]ment on above:Performed By: #### HSTROPN #### [facility] [address] [place] [address] Dr. Isabell PeñaHematocrit (Bld) [Volume fraction]42.4 %Bwmpwg41.0-48.0The [facility] HospitalComment on above:Performed By: #### HSTROPN #### [facility] [address] [address] [address] Isabell PeñaHemoglobin (Bld) [Mass/Vol]14.2 g/aSCovdkp78.0-16.0The [facility] HospitalComment on above:Performed By: #### HSTROPN #### [facility] [address] [place] [address] Dr. Isabell Driscoll #0.15 10e3/ulCritically high0.00-0.03The [facility] Comment on above:Performed By: #### HSTROPN #### [facility] [address] [place] [address] Dr. Isabell Driscoll %0.9 %Critically high0.0-0.5The [facility] HospitalComment on above:Performed By: #### HSTROPN #### [facility] [address] [place] [address] Dr. Isabell Stein #1.5 103/ulNormal1.2-3.8The [facility] HospitalComment on above:Performed By: #### HSTROPN #### [facility] [address] [place] [address] Dr. Isabell Roberthocytes/100 WBC (Bld)9.1 %Critically low20.5-60.0The [facility] HospitalComment on above:Performed By: #### HSTROPN #### [facility] [address] [place] [address] Dr. Isabell DempseyUAL DIFF REQNONormalThe [facility] HospitalComment on above: Performed By: #### HSTROPN #### [facility] [address] [place] [address] Dr. Isabell Gardner (RBC) [Entitic mass]27.5 ooCpweza68.7-34.0The [facility] HospitalComment on above:Performed By: #### HSTROPN #### [facility] [address] [place] [address] Dr. Isabell Gardner (RBC) [Mass/Vol]33.5 g/zWGjcvoz63.9-35.2The [facility] HospitalComment on above:Performed By: #### HSTROPN #### [facility] [address] [place] [address] Dr. Isabell Jones (RBC) [Entitic vol]82.2 kAJfqyuq62.0-99.0The [facility] HospitalComment on above:Performed By: #### HSTROPN #### [facility] [address] [place] [address] Dr. Isabell Gonzalez #1.1 103/ulCritically high0.3-0.8The [facility] Comment on above:Performed By: #### HSTROPN #### [facility] [address] [place] [address] Dr. Isabell Grandaocytes/100 WBC (Bld)6.4 %Normal1.7-12.0[facility] Comment on above:Performed By: #### HSTROPN #### [facility] [address] [place] [address] Dr. Isabell Malloy #13.8 103/ulCritically high1.4-6.5The [facility] [facility] Comment on above:Performed By: #### HSTROPN #### [facility] [address] [place] [address] Dr. Isabell Bensonophils/100 WBC (Bld)83.1 %Critically high43.0-75.0The [facility] HospitalComment on above:Performed By: #### HSTROPN #### [facility] [address] [place] [address] Dr. Isabell Mathewlet mean volume (Bld) [Entitic vol]8.7 fLCritically low 9.5-13.5The [facility] HospitalComment on above:Performed By: #### HSTROPN #### [facility] [address] [place] [address] Dr. Isabell HansonT438 103/hnYymeog517-788Rln [facility] HospitalComment on above: Performed By: #### HSTROPN #### [facility] [address] [place] [address] Dr. Isabell PeñaRBC5.16 106/ulNormal4.20-5.40The [facility] Hospitalment on above:Performed By: #### HSTROPN #### [facility] [address] [place] [address] Dr. Isabell PeñaWBC16.7 103/ulCritically high4.0-11.0The [facility] HospitalComment on above:Performed By: #### HSTROPN #### [facility] [address] [place] [address] Dr. Isabell Gutierrez 22-55-7233SJF [Mass/Vol]mg/LNormal<=1.0The [facility] HospitalComment on above:Performed By: #### HSTROPN #### [facility] [address] [place] [address] Dr. Isabell Pastor URINE PROFILEon 66-34-0853Gvezdxkjn Ql (U)NegativeNormal NEGATIVEThe [facility] HospitalComment on above:Performed By: #### CARLENE MORALESRO #### [facility] [address] [place] [address] Dr. Isabell PeñaClarity (U)CLEARNormalCLEARThe [facility] HospitalComment on above: Performed By: #### CARLENE MORALESRO #### [facility] [address] [place] [address] (U)LT. YELLOWNormalYELLOWThe [facility] HospitalComment on above:Performed By: #### CARLENE MORALESRO #### [facility] [address] [place] [address] Dr. Isabell VillalobosDA micrscopic examination will be performed if indicated. NormalThe [facility] HospitalComment on above:Performed By: #### CARLENE MORALESRO #### [facility] [address] [place] [address] Dr. Isabell PeñaGlucose Ql (U)NegativeNormalNEGATIVEThe [facility] HospitalComment on above:Performed By: #### CARLENE MORALESRO #### [facility] [address] [place] [address] Dr. Isabell PeñaHemoglobin Ql (U)NegativeNormalNEGATIVECleveland Clinic Lutheran Hospital Comment on above:Performed By: #### KAREN MORALES #### [facility] [address] [place] [address] Dr. Isabell PeñaKetones Ql (U)NegativeNormalNEGATIVECleveland Clinic Lutheran HospitalComment on above:Performed By: #### KAREN MORALES #### [facility] [address] [place] [address] Dr. Isabell JiOCYTESLARGEAbnormalNEGATIVECleveland Clinic Lutheran HospitalComment on above:Performed By: #### KAREN MORALES #### [facility] [address] [place] [address] Dr. Isabell PeñaNitrite Ql (U)NegativeNormalNEGATIVECleveland Clinic Lutheran HospitalComment on above:Performed By: #### KAREN MORALES #### [facility] [address] [place] [address] Dr. Isabell PeñapH (U)6.5 [pH]Normal5-9C[facility] Lutheran HospitalComment on above: Performed By: #### KAREN MORALES #### [facility] [address] [place] [address] Dr. Isabell PeñaSPEC GRAVITY1.148Pehwwl6.005-<=1.025C[facility] Lutheran HospitalComment on above:Performed By: #### CARLENE MORALESRO #### [facility] [address] [place] [address] Dr. Isabell Phillip PROTEINNegativeNormalNEGATIVE/ TRACEThe [facility] Comment on above:Performed By: #### KAREN MORALES #### [facility] [address] [place] [address] Dr. Isabell Gurrola MICRO INDINDICATEDNormalThTrinity Health System West CampusComment on above: Performed By: #### KAREN MORALES #### [facility] [address] [place] [address] Dr. Isabell Munozbilinogen Qn (U)0.2 {Bradly'U}/dLNormal0.2 - 1.0The [facility] Hospitalment on above:Performed By: #### KAREN MORALES #### [facility] [address] [place] [address] Dr. Isabell PeñaLACTATE/LACTIC ACIDon 87-37-6897Vkfeiku [Moles/Vol]1.2 mmol/L Normal0.4-1.9The [facility] HospitalComment on above:Performed By: #### LACT #### [facility] [address] [place] [address] Dr. Isabell PeñaPROF 14(COMP METB)on 26-13-6974Xiuwzcy [Mass/Vol]3.6 g/dLNormal 3.4-5.0The [facility] Hospitalment on above:Performed By: #### HSTROPN #### [facility] [address] [place] [address] Dr. Isabell PeñaAlbumin/Globulin [Mass ratio]1.0 {ratio}NormalThe [facility] Hospitalment on above:Performed By: #### HSTROPN #### [facility] [address] [place] [address] Dr. Isabell Tse [Catalytic activity/Vol]79 U/MBwizyb70-590[facility] on above:Performed By: #### HSTROPN #### [facility] [address] [place] [address] Dr. Isabell Barnett [Catalytic activity/Vol]23 U/SJjrwzi90-40Txb The [facility] Hospitalment on above:Performed By: #### HSTROPN #### [facility] [address] [place] [address] Dr. Isabell Bunch gap [Moles/Vol]12.7 mmol/LNormalThe [facility] on above:Performed By: #### HSTROPN #### [facility] [address] [place] [address] Dr. Isabell Lagunas [Catalytic activity/Vol]19 U/USgvpni10-17Vdy [facility] HospitalComment on above:Performed By: #### HSTROPN #### [facility] [address] [place] [address] Dr. Isabell PeñaBilirubin [Mass/Vol]0.7 mg/dLNormal0.2-1.0The [facility] Comment on above:Performed By: #### HSTROPN #### [facility] [address] [place] [address] Dr. Isabell PeñaCalcium [Mass/Vol]9.8 mg/dLNormal8.5-10.1The [facility] Comment on above:Performed By: #### HSTROPN #### [facility] [address] [place] [address] Dr. Isabell PeñaChloride [Moles/Vol]93 mmol/LCritically tch42-883Wcn [facility] HospitalCombrighton hospital on above:Performed By: #### HSTROPN #### [facility] [address] [place] [address] Dr. Isabell PeñaCO2 [Moles/Vol]29.9 mmol/OKnytgi42.0-32.0The [facility] Comment on above:Performed By: #### HSTROPN #### [facility] [address] [place] [address] Dr. Isabell PeñaCreatinine [Mass/Vol]1.14 mg/dLCritically high0.55-1.02The [facility] HospitalComment on above:Performed By: #### HSTROPN #### [facility] [address] [place] [address] Dr. Isabell PerezGFR-AF JBETOYTF54 mL/min/1.79b2Zxqgisuion low>=60The [facility] HospitalComment on above:Performed By: #### HSTROPN #### [facility] [address] [place] [address] Dr. Isabell PerezGFR-NON AF EYAJODJM63 mL/min/1.34a8Iluybozeem low>=60The [facility] HospitalComment on above:Performed By: #### HSTROPN #### [facility] [address] [place] [address] Dr. Isabell PeñaGlobulin (S) [Mass/Vol]3.7 g/dLNormGuernsey Memorial HospitalComment on above:Performed By: #### HSTROPN #### [facility] [address] [address] [address] Isabell PeñaGlucose [Mass/Vol]110 mg/dLCritically rozi20-088Jah [facility] HospitalComment on above:Performed By: #### HSTROPN #### [facility] [address] [address] [address] Isabell PeñaPotassium [Moles/Vol]3.6 mmol/LNormal3.5-5.1The [facility] Comment on above:Performed By: #### HSTROPN #### [facility] [address] [place] [address] Dr. Isabell PeñaProtein [Mass/Vol]7.3 g/dLNormal6.4-8.2The [facility] Comment on above:Performed By: #### HSTROPN #### [facility] [address] [place] [address] Dr. Isabell PeñaSodium [Moles/Vol]132 mmol/LCritically utb730-287Ils [facility] HospitalComment on above:Performed By: #### HSTROPN #### [facility] [address] [place] [address] Dr. Isabell PeñaUrea nitrogen [Mass/Vol]30.0 mg/dLCritically high7.0-18.0The [facility] HospitalComment on above:Performed By: #### HSTROPN #### [facility] [address] [place] [address] Dr. Isabell PeñaUrea nitrogen/Creatinine [Mass ratio]26.3 mg/mgNoMercy Health Lorain HospitalComment on above:Performed By: #### HSTROPN #### [facility] [address] [place] [address] Dr. Isabell Longoria, HIGH SENSITIVITYon 12-40-9386CNNILU07.5 pg/mLNormal 4.0-51.3The [facility] HospitalComment on above:Result Comment: CUT-OFF POINTS HAVE BEEN ESTABLISHED BASED ON THE FOURTH UNIVERSAL DEFINITIONS OF MYOCARDIAL INFARCTION. THE UPPER REFERENCE LIMIT (URL) OF TROPONIN, DEFINED THE 99TH PERCENTILE OF cTnI DISTRIBUTION IN A REFERENCE POPULATION, HAS BEEN CONFIRMED THE DECISION THRESHOLD FOR OR DIAGNOSIS.Performed By: #### HSTROPN #### [facility] [address] [place] [address] Dr. Isabell Tijerina 24-06-2135IEW7.628 uIU/mLNormal0.358-3.740The [facility] HospitalComment on above:Performed By: #### HSTROPN #### [facility] [address] [place] [address] Dr. Isabell Toledo 65-08-7422ZDNPSWBGNGUK SEENNormalNONE SEENCleveland Clinic Lutheran HospitalCombrighton hospital on above:Performed By: #### CARMEN UMICRO #### [facility] [address] [place] [address] Dr. Isabell George identified Cx Nom (U)INDICATEDAccess Hospital DaytonComment on above:Performed By: #### CARMEN UMICRO #### [facility] [address] [place] [address] Dr. Isabell Celaya SEENNormalNONE SEENCleveland Clinic Medina Hospital on above:Performed By: #### ERUR UMICRO #### [facility] [address] [place] [address] Dr. Isabell Plascencia LM Nom (Urine sed)NONE SEENNormalNONE SEENCleveland Clinic Lutheran HospitalCombrighton hospital on above:Performed By: #### ERUR, UMICRO #### [facility] [address] [place] [address] Dr. Isabell Hoskinsthelial cells LM Ql (Urine sed)FEWAbnormalNONE SEEN /RAREThe [facility] HospitalCombrighton hospital on above:Performed By: #### ERUR, UMICRO #### [facility] [address] [place] [address] Dr. Isabell Rosa SEENNormalNONE SEENCleveland Clinic Lutheran HospitalComment on above:Performed By: #### ERUR, UMICRO #### [facility] [address] [address] [address] Isabell PeñaZpvljKIV0-0Hkhidy8-0Iob [facility] HospitalComment on above:Performed By: #### ERUR, UMICRO #### [facility] [address] [address] [address] Isbaell PeñaWBC5-10AbnormalNONE SEENThe [facility] HospitalComment on above: Performed By: #### ERUR, UMICRO #### [facility] [address] [address] [address] Isabell PeñaCOVID-19 SOFIAOrdered By: Devin Moreau on 03-27-2022 SARS-CoV+SARS-CoV-2 (COVID-19) Ag IA.rapid Ql (Resp)NegativeNegativeHolmes County Joel Pomerene Memorial HospitalComment on above:This is a duplicate Saba SARS Antigen (CORAZON) result to be used for statistical tracking purpose only.No Panel InformationOrdered By: Devin Moreau on 43-54-9038FNEW Antigen (LFIA)[facility] Luther[facility] HospitalARS Antigen (LFIA)[facility] Basophils Auto (Bld) [#/Vol]Ordered By: Devin Moreau on 91-39-4512Btcvcilki (Bld) [#/Vol]0.1 10*3/uL0.0-0.2FCleveland Clinic Medina HospitalBasophils/100 WBC Auto (Bld)Ordered By: Devin Moreau on 72-62-3318Pyjucufdo/100 WBC (Bld)0.8 %.[facility] HospitalCreatinine and Glomerular filtration rate.predicted panel (S/P/Bld)Ordered By: Devin Moreau on 93-55-0571Gkdyuhkoma [Mass/Vol]0.98 mg/dL0.44-1.03[facility]ome[facility] Memorial HospitalEosinophils Auto (Bld) [#/Vol] Ordered By: Devin Moreau on 94-81-3384Gudlnonknij (Bld) [#/Vol]0.2 10*3/uL0.0-0.45 [facility] HospitalEosinophils/100 WBC Auto (Bld)Ordered By: Devin Moreau on 99-96-2003Bypwbqmxswp/100 WBC (Bld)2.5 %.[facility] Memorial HospitalErythrocyte distribution width Auto (RBC) [Ratio]Ordered By: Devin Moreau on 31-61-3742Gbpqiupwwcq distribution width (RBC) [Ratio]15.5 %11.9-15.3FCleveland Clinic Medina HospitalEstimated glomerular filtration rate (GFR) non- AmericanOrdered By: Devin Moreau on 82-20-3153RFK/1.73 sq M.predicted among non- blacks MDRD (S/P/Bld) [Vol rate/Area]56 mL/MinHolmes County Joel Pomerene Memorial Hospital Hematocrit Auto (Bld) [Volume fraction]Ordered By: Devin Moreau on 03-16-2022 Hematocrit (Bld) [Volume fraction]40.9 %34.0-46.4FCleveland Clinic Medina HospitalHemoglobin [Mass/volume] in BloodOrdered By: Devin Moreau on 03-16-2022 Hemoglobin (Bld) [Mass/Vol]13.3 g/dL11.8-15.4FCleveland Clinic Medina Hospital Laboratory - Hematology and Cell countsOrdered By: Devin Moreau on 03-16-2022 Nucleated RBC/100 WBC (Bld) [Ratio]0.1 %0-0.5FCleveland Clinic Medina Hospital Leukocytes [#/volume] in Blood by Automated countOrdered By: Devin Moreau on 06-56-5368QLR (Bld) [#/Vol]6.8 10*3/uL4.5-11.0[facility] Lymphocytes Auto (Bld) [#/Vol]Ordered By: Devin Moreau on 95-67-0200Xfzodhrinvd (Bld) [#/Vol]1.3 10*3/uL1.00-4.8[facility] Memorial HospitalLymphocytes/100 WBC Auto (Bld)Ordered By: Devin Moreau on 66-34-3709Ioxljbbcevx/100 WBC (Bld)19.5 %.[facility] Memorial HospitalMCH Auto (RBC) [Entitic mass]Ordered By: Devin Moreau on 01-87-1580ATC (RBC) [Entitic mass]27.7 pg24.7-34.3FCleveland Clinic Medina HospitalMCHC Auto (RBC) [Mass/Vol]Ordered By: Devin Moreau on 05-29-1197QIPW (RBC) [Mass/Vol]32.6 g/dL32.0-35.0[facility] HospitalMCV Auto (RBC) [Entitic vol]Ordered By: Devin Moreau on 09-26-4307OGB (RBC) [Entitic vol]85.0 sJ27-193VwzdpnkuqHolmes County Joel Pomerene Memorial HospitalMonocytes Auto (Bld) [#/Vol]Ordered By: Devin Moreau on 58-57-6212Iawweaobz (Bld) [#/Vol]0.8 10*3/uL 0.0-0.8[facility] HospitalMonocytes/100 WBC Auto (Bld)Ordered By: Devin Moreau on 61-42-0847Djebqkyqn/100 WBC (Bld)11.2 %.[facility] HospitalNeutrophils Auto (Bld) [#/Vol]Ordered By: Devin Moreau on 03-16-2022 Neutrophils (Bld) [#/Vol]4.5 10*3/uL1.8-7.7FCleveland Clinic Medina Hospital Neutrophils/100 WBC Auto (Bld)Ordered By: Devin Moreau on 03-16-2022 Neutrophils/100 WBC (Bld)66.0 %.[facility] HospitalNo Panel InformationOrdered By: Devin Moreau on 98-47-5870Suwnobksi GFR ()> 60 mL/MinHolmes County Joel Pomerene Memorial HospitalComment on above:GFR estimated reference range: According to KDOQI guidelines, <60 ml/min/1.73m2 is sufficient todiagnose a patient with chronic kidney disease.Pharmacy Creatinine Clearance (ChemN/[facility] HospitalPlatelet mean volume Auto (Bld) [Entitic vol]Ordered By: Devin Moreau on 78-63-2240Mvslwtno mean volume (Bld) [Entitic vol]8.3 fL6.3-10.7FCleveland Clinic Medina HospitalPlatelets Auto (Bld) [#/Vol]Ordered By: Devin Moreau on 42-87-9522Yurzwpytv (Bld) [#/Vol]302 10*3/uL 150-450Hol[facility] HospitalRBC Auto (Bld) [#/Vol]Ordered By: Devin Moreau on 53-63-0367CYC (Bld) [#/Vol]4.81 10*6/uL3.60-5.00[facility] Lutheran Hospitalerum or plasma anion gap determinationOrdered By: Devin Moreau on 17-68-7699Rxrkw gap [Moles/Vol]13.6 mmol/L6.0-15.0[facility] Lutheran Hospitalerum or plasma calcium measurement (mass/volume)Ordered By: Devin Moreau on 05-62-1582Gyeqmro [Mass/Vol]10.0 mg/dL8.2-10.2FCleveland Clinic [facility] Hospital Serum or plasma chloride measurement (moles/volume)Ordered By: Devin Moreau on 51-46-2133Qpisdyrx [Moles/Vol]98 mmol/K66-054WhempojlbHolmes County Joel Pomerene Memorial Hospital Serum or plasma glucose measurement (mass/volume)Ordered By: Devin Moreau on 42-61-3700Hjouxxi [Mass/Vol]94 mg/vC07-020UfrskqtdgHolmes County Joel Pomerene Memorial Hospital Comment on above:ADA recommended reference rangeRandom Glucose Reference Range is dependent on time and content of last meal. Glucose of more than 200 mg/dL in a nonstressed, ambulatory subject supports the diagnosisof Diabetes Mellitus. Serum or plasma potassium measurement (moles/volume)Ordered By: Devin Moreau on 97-75-5554Gxncgaxwe [Moles/Vol]4.8 mmol/L3.5-5.1FSt. Elizabeth Hospitalerum or plasma sodium measurement (moles/volume)Ordered By: Devin Moreau on 43-85-1091Zdwexu [Moles/Vol]137 mmol/S535-410VtanxpcdpHolmes County Joel Pomerene Memorial Hospital Serum or plasma total carbon dioxide measurement (moles/volume)Ordered By: Devin Moreau on 28-32-3479VZ6 [Moles/Vol]30.2 mmol/L22.0-30.0[facility] Luther[facility] Hospitalerum or plasma urea nitrogen measurement (mass/volume)Ordered By: Devin Moreau on 78-03-8600Ujlf nitrogen [Mass/Vol]19 mg/dL9-23[facility] HospitalOffice Visit (Cardiology)on 94-38-9577Dstgpe-up visit Diagnoses/Problems Assessed Mitral regurgitation (424.0) (I34.0) [...] Metabolic Panel; Status:Active - Retrospective Authorization; Requested for:13Cpv3682; Complete Blood Count; Status:Active - Retrospective Authorization; Requested for:49Ybq4450; Lipid Panel; Status:Active - Retrospective Authorization; Requested for:03Bfs3412; Essential hypertension, PMH: Nonischemic cardiomyopathy Renew: Carvedilol 6.25 MG Oral Tablet; TAKE 1 TABLET TWICE DAILY WITH MEALS Mitral regurgitation, PMH: Nonischemic cardiomyopathy Echocardiogram; Status:Hold For - Scheduling,Retrospective Authorization; Requested for:10Feb2023; PMH: Nonischemic cardiomyopathy Continue [...] 2021. Ejection fraction 55-60% Bryce Hendrickson MD, [facility] Surgical History Problems History of Appendectomy History [...] Recorded: 10Feb2022 08:39AM Heart Rate62, R Radial Apexcmlu880, RUE, Sitting Xhujcnldq01, RUE, Sitting Height5 ft 1 in Zpcahs981 lb BMI Iizoccxomm63.42 kg/m2 BSA Calculated1.72 Tobacco Useb) No PHQ-2 #1. Over the last 2 weeks have you felt down, depressed or hopeless? (If yes, answer PHQ-9 below)No PHQ-2 #2. Over the last 2 weeks have you felt little interest or pleasure in doing things? (If yes,answer PHQ-9 below)No (more content not included)...NormalUH TouchworksTobacco Screening.on 02-10-2022 Adult depression screening assessmentNoNew [facility] [address]eta [address] DO Work Phone: Fall risk assessmentb) One or more falls in the last yearNew [facility]ide [facility] [address] 600 DO Work Phone: Tobacco use status CPHSb) NoMCascade [facility] Saperion 600 DO Work Phone: MG MAMM DX 3D RT CADon 80-02-7550DK MAMM DX 3D RT CAD Patient: RENUKA OWEN Exam Date: 02/05/2022 : 1950 Gender:F Ordering : DR AJAY SONG [facility] Admission #: [id number] Family : Order #: [id number] CLICK HERE TO VIEW EXAM RADIOLOGY REPORT PROCEDURE: MAMMOGRAM DIAGNOSTIC 3D RIGHT CAD COMPARISON: MG MAMM DX 3D RT CAD, 02/04/2021. INDICATIONS: Estrogen receptor negative neoplasm Calculator Name NCI Breast Cancer Risk Assessment Tool 5 Year Breast Cancer Risk n/a% Lifetime Breast Cancer Risk n/a% Personal Breast Cancer Yes, Left breast cancer 2012 Personal Ovarian Cancer No Treatments Left mastectomy, radiation, sbpattdmxlem04 Family Cancers Father with testicular cancer at age 27. LOCATION: [facility] BREAST COMPOSITION: Scattered areas fibroglandular density. [...] by: Evelin Lott MD on 02/05/2022 at 14:47[facility] WO CONon 44-45-2365ADH [facility] WO CONEXAMINATION: [facility] WO CON HISTORY: Idiopathic osteoarthritis ; chronic [...] Electronically authenticated by: TAMY HOLM Date: 2022-01-09 14:[address] [place], [place] [address]COVID-19 Positive/NegativeOrdered By: Devin Moreau on 10-06-2021 SARS-CoV-2 (COVID-19) N gene JANET+probe Ql (Resp)NegativeNegativeHolmes County Joel Pomerene Memorial HospitalComment on above:Testing for SARS-CoV-2 by RT-PCR This test was developed and its performance characteristics determined by [employer] ([employer]) and validated at the [facility]. This test has not been FDA cleared [...] of time the declaration that circumstances exist ju stifying the authorization of the emergency use of in vitro diagnostic tests for detection of SARS-CoV-2 virus and/or diagnosis of COVID-19 infection under section 564(b)(1) of the Act, 21 U.S.C. 360bbb-3(b)(1), unless the authorization is terminated or revoked sooner.Basophils Auto (Bld) [#/Vol]Ordered By: Devin Moreau on 72-74-3979Wdbrcbxkf (Bld) [#/Vol]0.1 10*3/uL0.0-0.2FCleveland Clinic Medina HospitalBasophils/100 WBC Auto (Bld)Ordered By: Devin Moreau on 09-24-2021 Basophils/100 WBC (Bld)1.2 %[facility] HospitalBlood hemoglobin measurement (mass/volume)Ordered By: Devin Moreau on 13-70-3333Tmgtospdpm (Bld) [Mass/Vol]12.9 g/dL11.8-15.4FCleveland Clinic Medina HospitalBlood leukocytes automated count (number/volume)Ordered By: Devin Moreau on 73-34-2313HDA (Bld) [#/Vol]5.9 10*3/uL4.5-11.0[facility] HospitalCreatinine and Glomerular filtration rate.predicted panel (S/P/Bld)Ordered By: Devin Moreau on 98-06-7982Skcwifcngm [Mass/Vol]0.80 mg/dL0.44-1.03[facility] HospitalEosinophils Auto (Bld) [#/Vol]Ordered By: Devin Moreau on 09-24-2021 Eosinophils (Bld) [#/Vol]0.2 10*3/uL0.0-0.45[facility] Eosinophils/100 WBC Auto (Bld)Ordered By: Devin Moreau on 09-24-2021 Eosinophils/100 WBC (Bld)2.6 %[facility] HospitalErythrocyte distribution width Auto (RBC) [Ratio]Ordered By: Devin Moreau on 09-24-2021 Erythrocyte distribution width (RBC) [Ratio]15.8 %11.9-15.3FCleveland Clinic Medina HospitalEstimated glomerular filtration rate (GFR) non- Ordered By: Devin Moreau on 38-79-9366FUF/1.73 sq M.predicted among non-blacks MDRD (S/P/Bld) [Vol rate/Area]> 60 mL/MinHolmes County Joel Pomerene Memorial Hospital Hematocrit Auto (Bld) [Volume fraction]Ordered By: Devin Moreau on 09-24-2021 Hematocrit (Bld) [Volume fraction]39.6 %34.0-46.4FCleveland Clinic Medina HospitalLaboratory - Hematology and Cell countsOrdered By: Devin oMreau on 70-35-7169Tanidkxmr RBC/100 WBC (Bld) [Ratio]0.0 %0-0.5FCleveland Clinic Medina HospitalLymphocytes Auto (Bld) [#/Vol]Ordered By: Devin Moreau on 09-24-2021 Lymphocytes (Bld) [#/Vol]1.1 10*3/uL1.00-4.8[facility] Lymphocytes/100 WBC Auto (Bld)Ordered By: Devin Moreau on 09-24-2021 Lymphocytes/100 WBC (Bld)18.2 %[facility] [facility] Auto (RBC) [Entitic mass]Ordered By: Devin Moreau on 34-79-1504RLR (RBC) [Entitic mass]27.0 pg24.7-34.3FCleveland Clinic Medina HospitalMCHC Auto (RBC) [Mass/Vol]Ordered By: Devin Moreau on 15-10-5230GFTS (RBC) [Mass/Vol]32.6 g/dL32.0-35.0[facility] HospitalMCV Auto (RBC) [Entitic vol]Ordered By: Devin Moreau on 10-16-3487NPD (RBC) [Entitic vol]82.7 eC85-014WkfbgztbuHolmes County Joel Pomerene Memorial Hospital Monocytes Auto (Bld) [#/Vol]Ordered By: Devin Moreau on 34-77-1046Whpwkhlpn (Bld) [#/Vol]0.7 10*3/uL0.0-0.8[facility] HospitalMonocytes/100 WBC Auto (Bld)Ordered By: Devin Moreau on 14-74-6583Xivnyqsna/100 WBC (Bld)11.4 %[facility] HospitalNeutrophils Auto (Bld) [#/Vol]Ordered By: Devin Moreau on 69-44-8112Nwovbotmvgy (Bld) [#/Vol]3.9 10*3/uL1.8-7.7FCleveland Clinic Medina HospitalNeutrophils/100 WBC Auto (Bld)Ordered By: Devin Moreau on 09-24-2021 Neutrophils/100 WBC (Bld)66.6 %[facility] HospitalNo Panel InformationOrdered By: Devin Moreau on 27-02-8598Suqbhhsvs GFR ()> 60 mL/MinHolmes County Joel Pomerene Memorial HospitalComment on above:GFR estimated reference range: According to KDOQI guidelines, <60 ml/min/1.73m2 is sufficient todiagnose a patient with chronic kidney disease.Pharmacy Creatinine Clearance (ChemN/[facility] HospitalPlatelet mean volume Auto (Bld) [Entitic vol]Ordered By: Devin Moreau on 43-13-4448Bnmnxolq mean volume (Bld) [Entitic vol]7.6 fL6.3-10.7FCleveland Clinic Medina HospitalPlatelets Auto (Bld) [#/Vol]Ordered By: Devin Moreau on 63-80-2155Wmjcqeqqg (Bld) [#/Vol]296 10*3/uL 150-450[facility] HospitalRBC Auto (Bld) [#/Vol]Ordered By: Devin Moreau on 15-69-6125ZCU (Bld) [#/Vol]4.79 10*6/uL3.60-5.00C[facility] Clinic Lutheran Hospitalerum or plasma calcium measurement (mass/volume)Ordered By: Devin Moreau on 37-13-1373Yjqufrp [Mass/Vol]8.7 mg/dL8.2-10.2FSt. Elizabeth Hospitalerum or plasma chloride measurement (moles/volume)Ordered By: Devin Moreau on 63-94-5028Fzzgaedh [Moles/Vol]100 mmol/H60-252MgvpkftgvCleveland Clinic Lutheran Hospitalerum or plasma glucose measurement (mass/volume)Ordered By: Devin Moreau on 07-86-1327Xkblbrz [Mass/Vol]90 mg/eN29-493LllzgfcmeHolmes County Joel Pomerene Memorial Hospital Comment on above:ADA recommended reference range Random Glucose Reference Range is dependent on time and content of last meal. Glucose of more than 200 mg/dL in a nonstressed, ambulatory subject supports the diagnosis of Diabetes Mellitus.Serum or plasma potassium measurement (moles/volume)Ordered By: Devin Moreau on 88-21-1447Oqekaegkx [Moles/Vol]4.1 mmol/L3.5-5.1FSt. Elizabeth Hospitalerum or plasma sodium measurement (moles/volume)Ordered By: Devin Moreau on 99-76-1772Vstubn [Moles/Vol]136 mmol/L 136-146Cleveland Clinic Lutheran Hospitalerum or plasma total carbon dioxide measurement (moles/volume)Ordered By: Devin Moreau on 37-57-8923TE6 [Moles/Vol] 25.2 mmol/L22.0-30.0C[facility] Clinic Lutheran Hospitalerum or plasma urea nitrogen measurement (mass/volume)Ordered By: Devin Moreau on 61-52-9915Ecyc nitrogen [Mass/Vol]20 mg/dL9-23[facility] Memorial HospitalBasi Metabolic Panlon 57-95-9380Fsdeh gap [Moles/Vol]16 mmol/LNormal9-18FTewksbury State Hospital Comment on above:Performed By: #### BMP, CBCDIF ####[facility] [place] [address] [phone] [Mass/Vol]9.3 mg/dLNormal 8.5-10.5Fnantucket cottage hospital HospitalComment on above:Performed By: #### JOSE, CBCDIF ####[place] [phone] [Moles/Vol]101 mmol/FVucnvp89-717Jyljolnb HospitalComment on above:Performed By: #### JOSE, CBCDIF ####[place] 438046-[address]CO2 [Moles/Vol]22 mmol/VImj96-98Hxkhlfkw HospitalComment on above:Performed By: #### JOSE, CBCDIF ####[place] [phone] [Mass/Vol]0.84 mg/dLNormal 0.70-1.40[place] HospitalComment on above:Performed By: #### JOSE, CBCDIF ####[place] [phone]- Amer.>60Normal>60Faadams-nervine asylum HospitalComment on above:Performed By: #### JOSE, CBCDIF ####[place] [phone]/1.73 sq M predicted among non-blacks MDRD (S/P/Bld) [Vol rate/Area]mL/min/{1.73_m2}Normal>60Faadams-nervine asylum HospitalComment on above:Performed By: #### JOSE, CBCDIF ####[place] [phone] [Mass/Vol]115 mg/bDUxee57-782Gbiovjzh HospitalComment on above:Performed By: #### JOSE, CBCDIF ####[place] [phone] [Moles/Vol]3.6 mmol/LNormal 3.5-5.0Faadams-nervine asylum HospitalComment on above:Performed By: #### JOSE, CBCDIF ####[place] 438046-[address]Sodium [Moles/Vol]139 mmol/AOrcfou420-689Zplvfjfp HospitalComment on above:Performed By: #### JOSE, CBCDIF ####[place] 438046-71[address]Urea nitrogen [Mass/Vol]16 mg/dLNormal8-25[facility] Hospital Comment on above:Performed By: #### JOSE, CBCDIF ####[place] [phone] and Differentialon 53-39-4357Ocv Baso<0.03Normal<0.11Faadams-nervine asylum HospitalComment on above:Performed By: #### JOSE, CBCDIF ####[place] 4380[address] Abs Mono0.48 k/uLNormal<0.87Faadams-nervine asylum HospitalComment on above:Performed By: #### JOSE, CBCDIF ####[place] 438046-[address]Abs Neut7.17 k/uLNormal1.45-7.50Faad[facility]erv[facility] asylum HospitalComment on above:Performed By: #### JOSE, CBCDIF ####[place] 438046-[address]Absolute nRBC<0.01Normal<0.01Faad[facility]ervine asylum HospitalComment on above:Performed By: #### JOSE, CBCDIF ####[place] 438046-[address]Basophils/100 WBC (Bld)0.1 %NormalFaadams-nervine asylum HospitalComment on above:Performed By: #### JOSE, CBCDIF ####[place] [phone] Auto DiffNormalFaadams-nervine asylum HospitalComment on above:Performed By: #### BMP, CBCDIF ####[place] [phone] Eosinophils (Bld) [#/Vol]10*3/uLNormal<0.46Faadams-nervine asylum HospitalComment on above: Performed By: #### JOSE, CBCDIF ####[place] [phone]/100 WBC (Bld)0.0 %Normal [facility] HospitalComment on above:Performed By: #### JOSE, CBCDIF ####[place] 438046-71[address]Erythrocyte distribution width (RBC) [Ratio]13.9 %Yjykpv23.5-15.0[facility] HospitalComment on above:Performed By: #### JOSE, CBCDIF ####[place] 438046-[address]Hematocrit (Bld) [Volume fraction]37.7 % Zosnix91.0-46.0[facility] HospitalComment on above:Performed By: #### JOSE, CBCDIF ####[place] 438046[address] Hemoglobin (Bld) [Mass/Vol]12.4 g/wSKuwlkw30.5-15.5Fnantucket cottage hospital HospitalComment on above:Performed By: #### JOSE, CBCDIF ####[place] 438046-[address]Lymphocytes (Bld) [#/Vol]0.98 10*3/uLLow 1.00-4.00[facility] HospitalComment on above:Performed By: #### BMP, CBCDIF ####[place] 438046-[address] Lymphocytes/100 WBC (Bld)11.3 %NormalKnoxville HospitalComment on above:Performed By: #### JOSE, CBCDIF ####[place] 438046-[address]MCH (RBC) [Entitic mass]27.3 zZXqpsmy41.0-34.0[facility] Comment on above:Performed By: #### JOSE, CBCDIF ####[place] 438046-[address]MCHC (RBC) [Mass/Vol]32.9 g/dLNormal 30.5-36.0[facility] HospitalComment on above:Performed By: #### JOSE, CBCDIF ####[place] 438046-71[address]MCV (RBC) [Entitic vol]82.9 hPXtkqrb77.0-100.0[facility] HospitalComment on above:Performed By: #### JOSE, CBCDIF ####[place] 438046-71[address]Monocytes/100 WBC (Bld)5.6 %NormalKnoxville HospitalComment on above:Performed By: #### JOSE, CBCDIF ####[place] 438046-71[address]Neutrophils/100 WBC (Bld)83.0 %Normal [facility]aryComment on above:Performed By: #### JOSE, CBCDIF ####[place] 438046-7110NRBCs0.0 /100 WBC Tvrqab3Fjvlzoce HospitalComment on above:Performed By: #### JOSE, CBCDIF ####[place] 438046-[address]Platelet mean volume (Bld) [Entitic vol]10.3 fLNormal9.0-12.7Fnantucket cottage hospital HospitalComment on above:Performed By: #### BMP, CBCDIF ####[place] 438046-[address]Platelets (Bld) [#/Vol]271 10*3/uLNormal 150-400Faadams-nervine asylum HospitalComment on above:Performed By: #### JOSE, CBCDIF ####[place] [address] [place], [place] [phone] (Bld) [#/Vol]4.55 10*6/uLNormal3.90-5.20[facility]aryComment on above:Performed By: #### JOSE, CBCDIF ####[address] [phone] (Bld) [#/Vol]8.64 10*3/uLNormal3.70-11.00[facility] Comment on above:Performed By: #### JOSE CBCDIF ####[place] [address] [place], [place] [phone] PROGon 94-97-3821XAMBDHB PROGHNO ID: [id number] Author: Janelle JonesRn) JAYA Cast Service: ? Author Type: Registered Nurse Type: Nursing Progress Note Filed: 06/20/2020 12:33 PM Note Text: Nursing Progress Note Patient Name: Renuka Owen Patient Location: [place] [address]/[place] [address] Daily Note: 0800: Patient awake in bed [...] any NANDV a this time. 1050: Sandhya (CANDIDA) Willner at bedside to discuss plan of care. Plan for discharge this afternoon. 1230: IVs removed, discharge teaching completed. No further questions at this time. This note was completed by: Bassam PadillaalVibra Hospital of Western [facility] 01-15-8143ZDHHNBGAPVP ID: [id number] Author: Vasyl Castillo Service: Colorectal Author Type: [...] Castillo MD,PhD General Surgery, PGY3 Service Pager: [phone] After 6PM, weekends, and holidays: filling separator pager: [phone] Patient Active Hospital Problem List: Obesity, Class [...] Amylase, AND Lipase Intake and Output: Date 06/19/20699 - 06/20/20 0606/20/20699 - 06/21/20 0659 Shift 5861-4701 3825-9498 6185-9747 24 Hour Total 7315-2682 6205-7654 0304-4009 24 Hour Total INTAKE PO 300 300 [...] protocol in the MR contrast administration guidelines link.[facility] ID: [id number] Author: Anahi Walton Service: General Surgery Author [...] (!) 58 16 100 % ? ? 06/19/20 1930 136/99 ? ? 75 14 100 % ? ? 06/19/201914 105/89 ? ? 80 14 100 % ? ? 06/19/20 190 134/82 ? ? 67 10 100 % ? ? 06/19/20 184 148/69 ? ? 71 17 98 % [...] extremity edema. Pulses palpable. ASSESSMENT AND PLAN: /Ms. Owen is a 69 year old female POD 0 s/p Presacral tumor, resected with en bloc coccygectomy. She is doing well with minimal complaints Plan: - Continue pain control w/ multimodal pain regimen - Pt hemodynamically stable. Continue to monitor. - Clinical exam appropriate for immediate post-op period - Continue routine post-operative care Anahi Walton MD General Surgery PYA9OzsmfhWxfqtpyuChelsea Memorial HospitalANES POSTPROC EVALon 51-15-2087KOSB POSTPROC EVALHNO ID: [id number] Author: Tj Hill Service: Anesthesiology Author Type: Anesthesiologist Type: Anesthesia Postprocedure Evaluation Filed: 06/19/2020 5:07 PM Note Text: POST ANESTHESIA EVALUATION NOTE : 1950 Procedure Summary Date: 06/19/20 Room / Location: OR12 / OR Anesthesia Start: 1415 Anesthesia Stop: Procedures: EXCISION TUMOR PRESACRAL [9391] (N/A Coccyx) COCCYGECTOMY (N/A Coccyx) Diagnosis: Presacral mass (Presacral mass [R19.09]) Surgeons: Saman Lorenzo Responsible Provider: Tj Hill Anesthesia Type: general ASA Status: 3 Anesthesia Type: general Last vitals Vitals Value Taken Time BP 145/82 06/19/20 1700 Temp 36.4 ?C (97.5 ?F) 06/19/20 1615 Pulse 62 06/19/20 1706 Resp 12 06/19/20 1706 SpO2 100 % 06/19/20 170 Vitals shown include unvalidated device data. Post [...] June 19, 2020 TIME: 5:06 PM CSN: [id number] Memorial Hospital PRE-OPon 50-49-0326AGGZ PRE-OPHNO ID: [id number] Author: Ricardo Arvizu Service: Anesthesiology Author Type: Anesthesiologist Type: Anesthesia Preprocedure Evaluation Filed: 06/19/2020 1:37 PM Note Text: ANESTHESIOLOGY DAY OF SURGERY NOTE : 1950 Procedure(s) (LRB): EXCISION TUMOR PRESACRAL [9391] (N/A) Surgeon(s): Saman Lorenzo Estimated body mass index is 30.18 kg/m? [...] SIGNATURE: Ricardo Arvizu MD PATIENT NAME: Renuka DOMÍNGUEZ: June 19, 2020 TIME: 1:32 PM CSN: [id number]-HRI Hospital 06-19-2020 [facility] ID: [id number] Author: Willow JonesRnJames Mon RN Service: ? Author Type: Registered Nurse Type: Nursing Progress Note Filed: 06/19/2020 9:48 PM Note Text: Nursing Progress Note Patient Name: Renuka Owen Patient Location: [place] [address]/-[id number] Transfer Note: Patient transferred into room/unit PK322 in stable condition. Actions taken: No futher actions taken at this time. Will continue to monitor and check with patient. This note was completed by: Willow Mon RNMassachusetts General Hospital ID: [id number] Author: oJdy Hanna RN Service: Nursing Author Type: Registered Nurse Type: Nursing Progress Note Filed: 06/19/2020 11:55 AM Note Text: PATIENT EDUCATION TOPIC: PROCEDURE / SURGERY: Pre-op Teaching: Logistics Protocols PATIENT NAME: Renuka Owen PATIENT LOCATION: OR [place]/ OR POOL READINESS TO LEARN COGNITIVE ABILITY: Alert and oriented MOTIVATION TO LEARN: Eager Interested FAMILY SUPPORT: None - Unavailable/disinterested INSTRUCTION PROVIDED TO: Patient PATIENT LEARNS BEST [...] PROVIDED TO PATIENT: None REFERRAL (RECOMMENDATION): None EWWHICEAQ NOHNO ID: [id number] Author: Saman Lorenzo Service: Colorectal Author Type: Physician Type: Operative Report Filed: 06/21/2020 9:35 AM Note Text: [facility] - Operative Report RENUKA OWEN : 1950 AGE: 69. SEX: F PATIENT TYPE: I HOSP SVC: CORS LOCATION: [facility] ATTENDING PHYSICIAN: Saman Lorenzo M.D. [facility] NUMBER: [id number] DATE OF SURGERY/PROCEDURE: 06/19/2020 INCISION/PROCEDURE START TIME: 1446 hours. INCISION CLOSE/PROCEDURE END TIME: 1600 hours. 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 SURGEON: Saman Lorenzo M.D. DEHYDRATION PLANT OPERATOR: Dr. Krunal Meyer and Triny He. SURGERY/PROCEDURE: Excision of presacral tumor and [...] from anesthesia and taken to recovery room. Saman Lorenzo M.D. JAT:[id number] /[id number] NoBaystate Franklin Medical CenterURGICAL PATHOLOGYon 82-85-0490LBYUHNYG PATHOLOGYSpecimen originated from [facility] Specimen #: [id number] Submitting Physician: SAMAN LORENZO FINAL DIAGNOSIS Presacral tumor, en bloc coccygectomy - Epidermoid cyst. See comment. J/SEFERINO/kelley 06/21/2020 COMMENT Immunohistochemical stains performed on block [...] in-situ hybridization tests have been determined by [facility]'s [facility] HospitalRadha [facility] Pathology and Laboratory Medicine [place] ([facility] INDIAN HOSPITALPLOR) in a manner consistent with CLIA requirements. One or more of these tests have not been cleared or approved by the FDA. [facility] is regulated under CLIA as qualified to perform high-complexity testing. These tests are used for clinical purposes. They should not be regarded as investigational or for research. Demond Cope M.D. (Electronic Signature) SPECIMEN SUBMITTED A: PRESACRAL TUMOR WITH EN [...] 1 cm from the bone resection margin. Senior Data Scientist sections are submitted as follows: A1-A3 nodule with inked outer surface; A4-A7 nodule with entire bone resection margin following light decalcification. Iban 06/20/2020 Gross examination performed at [facility], [address] [place] [address] Date of Report: 06/25/2020 Date of Procedure: 06/19/2020 Date of Receipt: 06/20/2020 Submitted by: SAMAN LORENZO Location: [facility] Diagnostic interpretation performed at [facility], [facility] [place] [place] [address]. CLIA Number: [id number] HospitalCNPNon [id number] (REFAIR) RENUKA OWEN ([id number]) 1950 F Date Time Provider Department 06/18/20 EVON ZUNIGA During your visit today, we recorded the following information about you: Nick Javier Rust 06/18/2020 12:13 PM Signed IRB# [id number], Perioperative ISchemic Evaluation 3 (POISE-3), PI: Jeovanny Duque MD. [facility] Insurance Adjuster: Evon Zuniga MD, UMANG, FASA. [employer]. Anesthesia [place]. This is a research study note. Patient assessments recorded here should not guide either clinical care or clinical decision-making. Patient contacted on behalf of [employer] (Anest[facility] [place]) regarding eligibility for PeriOperative Ischemic Evaluation 3 [...] of the informed consent for her review. Nick Cardoso MD Research Fellow Anesthesiology [place] Outcomes Research Department [facility] Allergies As of Date: 06/18/2020 Noted Allergy Reaction PENICILLINS 03/05/2011 4 - Hives LIPITOR (ATORVASTATIN CALCIUM) 03/05/2011 9 - Itching Date Reviewed: 06/03/2020 Reviewed by: Kathy Anglin ([facility]) ANA Lopez - Fully Assessed Reason [...] [N18.9] 06/03/2020 More... Encounter Status:Closed by ELAINA JAVIER [facility], NICK HOANG on 06/18/20Noal [facility]aryType and SCR (30D)on 44-65-1917PHZ/RH(D)PositiveNoChelsea Memorial HospitalComment on above:Performed By: #### [id number] ####[facility] [place], [place] [phone] 50-18-7530KIEB Patient:Renuka Owen MRN: Height:5' 2 [patient reported[(1.575 m) [...] Low POTA* 4.8 mmol/L 06/05/2020 5.1 3.7 ZA* 39.8 % 06/05/2020 46.0 36.0 Progress Notes (RESEARCH BASTIAN): Nick Javier Rust 06/18/2020 12:13 PM Signed IRB# [id number], Perioperative ISchemic Evaluation 3 (POISE-3), PI: Jeovanny Duque MD. [facility] Insurance Adjuster: Evon Zuniga MD, UMANG, FASA. [employer]. Anesthesia [place]. This is a research study note. Patient assessments recorded here should not guide either clinical care or clinical decision-making. Patient contacted on behalf of [employer] (Anesthesia [place]) regarding eligibility for PeriOperative Ischemic Evaluation 3 [...] of the informed consent for her review. Nick Cardoso MD Research Fellow Anesthesiology [place] Outcomes Research Department [facility] Progress Notes ([facility]): Megan Batista RN, RN 05/31/2020 12:22 PM Signed Call placed to patient for pre op surgical discussion. She is aware of surgery date of 06/19 and has PACC and Covid 19 testing scheduled. All bowel prep reviewed with patient and sent via My Chart. Pt appreciative of the discussion and contact. Reviewed typical post op expectations and follow up in office. [facility] 83-81-1377HSGXKD HEALTHHNO ID: [id number] Author: Pierce Aguila (Tech) Service: Radiology Author Type: Side Door Worker Type: Allied Health Filed: 05/15/2020 1:03 PM [...] Owen DATE: May 15, 2020 TIME: 1:02 [facility] HospitalMRI RECT[facility] WO/W IVCONon 63-95-0540MEY RECTUM WO/W IVCON* * *Final Report* * * DATE OF [...] axial oblique STIR: axial T1 in and gev-nn-jfbir: axial HASTE: coronal large field of view [...] suspicious appearing mesorectal or extramesorectal lymph nodes. Research Agricultural Engineer: CARTER Transcribe Date/Time: May 15 2020 1:45P Dictated by : BLAKE PARKER MD This examination was interpreted and the report reviewed and electronically signed by: BLAKE PARKER MD on May 15 2020 2:28PM EST [id number] Mental Health Centeran Referralon 04-24-2020 Physician [id number]#1.00CD:127Normal [facility] HospitalPhysician Referralon 97-44-1068Dyvhwiimi Referral [id number]#1.00CD:127[facility] HospitalCoding Summary.on 98-03-8288Jtxlig Summary.CODING DATE: 03/26/2020 FINAL [facility] STATUS: Home (Routine DC) PAYOR: Medicare APC [...] Kathrin Abarca CphT Date Saved: 03/26/2020 09:23 [facility]ill[facility]acial w/o Contraston 62-17-8046TS Maxillofacial w/o ContrastExam Date/Time: 03/25/2020 11:02 EST Reason for Exam: [...] Ara Edge MD Transcribed by: SHAKILA Technologist: [facility] Hospital - TrumbullConsent for Treatmenton 36-65-8327Nwmxgfg for Treatment [id number]#1.00CD:[address] [place], [place] [address]Physician Orderon 34-06-5929Nsyvusvhp Order [id number]#1.00CD:[address] [place], [place] [address]CBCon 08-97-1611Brwfrmihvpq distribution width Auto Ratio (RBC)14.9 % Sirtcg87.0-15.4EMH HealthcareComment on above:Performed By: #### [id number] ####[facility] [address] [place] [address] Hematocrit Auto Volume Fraction (Bld)39.6 %Oitfbs34.5-46.6EMH HealthcareComment on above:Performed By: #### [id number] ####[facility] [address] [place], [place] [address]Blvcclfrkz mass conc (Bld)12.8 g/dL Xotqcj00.8-15.3EMH HealthcareComment on above:Performed By: #### [id number] ####[facility] [address] [place] [address] MCH Auto Entitic mass (RBC)27.8 yqGbtdjt12.5-33.0EMH HealthcareComment on above: Performed By: #### [id number] ####[facility] [address] [address]SIUG Auto mass conc (RBC)32.3 g/tOCulase34.1-35.0EMH HealthcareComment on above:Performed By: #### [id number] ####[address] [address]LBM Auto Entitic volume (RBC)85.9 nWPoqcwm20.4-100.0EMH HealthcareComment on above:Performed By: #### [id number] ####[address] [address]UMTN Absolute0.00 10*3/uLNormalEMH HealthcareComment on above:Performed By: #### [id number] ####[address] [address]IWXR Automated0.0 /100{WBCs}NormalEMH HealthcareComment on above:Performed By: #### [id number] ####[address] [address]Lktxbkbd mean volume Auto Entitic volume (Bld) 10.9 fLNormal9.9-12.1EMH HealthcareComment on above:Performed By: #### [id number] ####[address] [address] Platelets Auto #/vol (Bld)176 10*3/dNAhtxco217-911QEE HealthcareComment on above:Performed By: #### [id number] ####[address] [address]SER Auto #/vol (Bld)4.61 10*6/uLNormal3.85-5.10 EMH HealthcareComment on above:Performed By: #### [id number] ####[address] [address]GCG SD46.7 fL Kfybun98.3-48.6EMH HealthcareComment on above:Performed By: #### [id number] ####[address] [address] WBC Auto #/vol (Bld)6.2 10*3/uLNormal4.4-9.9EMH HealthcareComment on above: Performed By: #### [id number] ####[facility] [address] [facility] [place], [place] [address]Aqjfdtcgjrwm 41-91-5477Nokrsrhtpq mass conc1.04 mg/dL Normal0.50-1.05EMH HealthcareComment on above:Performed By: #### [id number] ####[facility] [address] [place] [address] GFR/1.73 sq M.predicted MDRD vol rate/area53 mL/min/{1.73_m2}NormalEMH HealthcareComment on above:Result Comment: Interpretation for Chronic Kidney Disease:Stages 1&2 >60 Healthy or potential kidney damage.Mild decrease of GFR.Stage 3 30-59 Moderate decrease of GFR.Stage 4 15-29 Severe decrease of GFR.Stage 5 <15 Kidney failure or on dialysis.Performed By: #### [id number] ####[facility] [address] [place] [address] Electrolyte Panelon 34-85-1298Srzkp gap 3 molar conc12 mmol/DElahou36-70RYY HealthcareComment on above:Performed By: #### [id number] ####[facility] [address] [place], [place] [address]Vvcteunn molar xfed617 mmol/GCjdpgc09-823XGW HealthcareComment on above:Performed By: #### [id number] ####[facility] [address] [place] [address] HCO3 molar conc (Bld)30 mmol/ZWbqvdb30-34PFV HealthcareComment on above: Performed By: #### [id number] ####[facility] [address] [place], [place] [address]Qyglmimwe molar conc3.7 mmol/LNormal3.5-5.1EMH HealthcareComment on above:Performed By: #### [id number] ####[facility] [address] [place], [place] [address]Srgqde molar pprd718 mmol/RJoxdxp300-216UEW HealthcareComment on above:Performed By: #### [id number] ####[facility] [address] [place] [address] Urea Nitrogenon 06-39-4817Skmv nitrogen mass conc28 mg/dLHigh6-23EMH Healthcare Comment on above:Performed By: #### [id number] ####[facility] [address] [place] [address] Vital Signs Date TimeVital SignValuePerforming RxpexutawTbudmgud71-10-6336 13:36-0400Body gcyqeo775.[address]10-20-2025 13:36-0400Body mass index (BMI) [Ratio]27.96 kg/m[address] 02-19-2025 13:36-0400Body bqgaid36.[address] 02-19-2025 13:36-0400Diastolic blood kywygvma03 mm[Hg][address]10-20-2025 13:36-0400Systolic blood fsszpxul691 mm[Hg][address]09-30-2025 09:30-0400Body .9 cmBryce Hendrickson MD Work Phone: [address] [place], [place] 1961109-30-2025 09:30-0400 Body mass index (BMI) [Ratio]28.08 kg/f5XrcrbrBryce Hendrickson MD Work Phone: [address] [place], [place] 1961109-30-2025 09:30-0400 Body wfoviq19.41 kgBryce Hendrickson MD Work Phone: [phone] [place], [place] 7520809-30-2025 09:30-0400 Diastolic blood qgvakwxb91 mm[Hg]Bryce Hendrickson MD Work Phone: [address] [place], [place] 1961109-30-2025 09:30-0400 Heart rate68 /minBryce Hendrickson MD Work Phone: [address] [place], [place] 1961109-30-2025 09:30-0400 Systolic blood kadbssmy837 mm[Hg]Bryce Hendrickson MD Work Phone: [address] [place], [place] 1961109-15-2025 11:46-0400 Body hyfbdq887.48 cmBenjamin Ball DO Work Phone: 1(928)325-73[facility]09-15-2025 11:46-0400 Body mass index (BMI) [Ratio]27.4 kg/f2Mbpysnde Ball DO Work Phone: 1(151)653-[address] [place], [place] 5863209-15-2025 11:46-0400 Body ztpfel98.15 kgBenjamin Ball DO Work Phone: 1(725)[address]09-15-2025 11:46-0400 Diastolic blood eymnkaqa94 mm[Hg]Sylvester Ball DO Work Phone: 1(955)[address]09-15-2025 11:46-0400 Heart rate72 /minBenjamin Ball DO Work Phone: 1(153)182-[address] [place], [place] 5863209-15-2025 11:46-0400 Respiratory rate12 /minBenjamin Ball DO Work Phone: 1(030)416-[address] [place], [place] 5863209-15-2025 11:46-0400 Systolic blood eyayerqh798 mm[Hg]Sylvester Ball DO Work Phone: 1(051)910-[address] [place], [place] 5863209-11-2025 16:14-0400 Body plupgi892.48 cmBenjamin Ball DO Work Phone: 1(058)720-[address] [place], [place] 5863209-11-2025 16:14-0400 Body mass index (BMI) [Ratio]27.2 kg/t9Xrxkassi Ball DO Work Phone: 1(050)372-[address] [place], [place] 5863209-11-2025 16:14-0400 Body glyyuuxmfbl45.8 [degF]Sylvester Ball DO Work Phone: 1(861)759-[address] [place], [place] 5863209-11-2025 16:14-0400 Body ycynbd97.58 kgBenjamin Ball DO Work Phone: 1(419)483-[address] [place], [place] 5863209-11-2025 16:14-0400 Diastolic blood mm[Hg]Sylvester Ball DO Work Phone: 1(281)[address] [place], [place] 5021409-11-2025 16:14-0400 Heart rate77 /minBenjamin Ball DO Work Phone: 1(427)[address] [place], [place] 5021409-11-2025 16:14-0400 Respiratory rate18 /minBenjamin Ball DO Work Phone: 1(238)[address] [place], [place] 5021409-11-2025 16:14-0400 SaO2% (BldA) [Mass fraction]97 %Sylvester Ball DO Work Phone: 1(793)[address] [place], [place] 5021409-11-2025 16:14-0400 Systolic blood csqusuhq25 mm[Hg]Sylvester Ball DO Work Phone: 1(985)[address] [place], [place] 5021408-01-2025 09:33-0400 Diastolic blood ejjcsqdl01 mm[Hg]Sylvester Ball DO Work Phone: 1(765)[address] [place], [place] 5021408-01-2025 09:33-0400 Systolic blood abjqrvka315 mm[Hg]Sylvester Ball DO Work Phone: 1(000)[address] [place], [place] 5021408-01-2025 06:19-0400 Body cgyiuv05.9 kgBenjamin Ball DO Work Phone: 1(252)[address] [place], [place] 5021408-01-2025 06:16-0400 Body zrrpxrkizqk50.5 [degF]Sylvester Ball DO Work Phone: 1(807)[address] [place], [place] 5021408-01-2025 06:16-0400 Heart grhm894 /minBenjamin Ball DO Work Phone: 1(634)[address] [place], [place] 5021408-01-2025 06:16-0400 Respiratory rate16 /minBenjamin Ball DO Work Phone: 1(146)[address] [place], [place] 5021408-01-2025 06:16-0400 SaO2% (BldA) [Mass fraction]96 %Sylvester Ball DO Work Phone: 1(334)[address] [place], [place] 5021407-29-2025 12:55-0400 Body .48 cmBenjamin Ball DO Work Phone: 1419)[address] [place], [place] 5021407-15-2025 08:54-0400 Body wzhjokdyhzn46 [degF]Sylvester Ball DO Work Phone: 1419)[address] [place], [place] 5021407-15-2025 08:54-0400 Diastolic blood qjdwkcqa84 mm[Hg]Sylvester Ball DO Work Phone: 1419)[address] [place], [place] 5021407-15-2025 08:54-0400 Heart luew279 /minBenjamin Ball DO Work Phone: 1419)[address] [place], [place] 5021407-15-2025 08:54-0400 Respiratory rate18 /minBenjamin Ball DO Work Phone: 1419)[address] [place], [place] 5021407-15-2025 08:54-0400 SaO2% (BldA) [Mass fraction]98 %Sylvester Ball DO Work Phone: 1419)[address] [place], [place] 5021407-15-2025 08:54-0400 Systolic blood hkernnna611 mm[Hg]Sylvester Ball DO Work Phone: 1(427)[address] [place], [place] 5021407-15-2025 06:00-0400 Body wcjzyh77.7 kgBenjamin Ball DO Work Phone: 1(780)[address] [place], [place] 5021407-14-2025 14:31-0400 Body acxuxu026.02 cmBenjamin Ball DO Work Phone: 1(663)[address] [place], [place] 5021407-12-2025 07:00-0400 Inhaled oxygen flow rate2 L/minBenjamin Ball DO Work Phone: 1419)[address] [place], [place] 5021407-11-2025 11:07-0400 Inhaled oxygen jvesawezprrjo26 %Sylvester Ball DO Work Phone: 1(526)[address] [place], [place] 5021407-03-2025 16:35-0400 Body lxzuqp608.02 cmBenjamin Ball DO Work Phone: 1(251)[address] [place], [place] 5021407-03-2025 16:35-0400 Body ouenxsluolz39.6 [degF]Sylvester Ball DO Work Phone: 1(232)393-89[facility]07-03-2025 16:35-0400 Body sbcxes61.8 kgBenjamin Ball DO Work Phone: 1(626)861-65[facility]07-03-2025 16:35-0400 Diastolic blood cyehvqzk55 mm[Hg]Sylvester Ball DO Work Phone: 1(782)612-53[facility]07-03-2025 16:35-0400 Heart rate80 /minBenjamin Ball DO Work Phone: 1(360)791-[address] [place], [place] 5863207-03-2025 16:35-0400 Inhaled oxygen flow rate3 L/minBenjamin Ball DO Work Phone: 1(959)[address]07-03-2025 16:35-0400 Respiratory rate14 /minBenjamin Ball DO Work Phone: 1(835)108-[address] [place], [place] 5863207-03-2025 16:35-0400 SaO2% (BldA) [Mass fraction]98 %Sylvester Ball DO Work Phone: 1(572)844-[address] [place], [place] 5863207-03-2025 16:35-0400 Systolic blood lxtqcbii80 mm[Hg]Sylvester Ball DO Work Phone: 1(235)393-97[facility]06-23-2025 11:00-0400 Body kgfyzx660.5 cmBran Linda MD Work Phone: 1(199)0-4762[facility] HospitalUzfzqvwmlo92-30-1269 11:00-0400Body mass index (BMI) [Ratio]28.53 kg/t2YghmlgfBran Linda MD Work Phone: [facility] HospitalOddjfggzgz41-39-0623 11:00-0400Body narkxd03.76 kgBran Linda MD Work Phone: [facility] HospitalQupebdalzl66-44-0246 11:00-0400Diastolic blood dmawunxd45 mm[Hg]Bran Linda MD Work Phone: [facility] HospitalYjmbxxpieh98-20-6033 11:00-0400Systolic blood ttzuppes363 mm[Hg]Bran Linda MD Work Phone: [facility] HospitalIhwglcpxbc26-98-8454 11:50-0400Body cyupye263.48 cmHol[facility]05-30-2025 11:50-0400Body mass index (BMI) [Ratio]30 kg/p1OepcbqdymHol[facility]05-30-2025 11:50-0400Body weight 74.61 kgHol[facility]05-30-2025 11:50-0400Diastolic blood dndhjgiz74 mm[Hg][facility]05-30-2025 11:50-0400Heart rate73 /[facility]05-30-2025 11:50-0400Respiratory rate12 /[facility]05-30-2025 11:50-0400Systolic blood wkcueaje495 mm[Hg][facility]05-29-2025 10:08-0400Body ljeczt984.5 cmSteven Rusher DPM Work Phone: 1(564)[address]05-29-2025 10:08-0400Body mass index (BMI) [Ratio]28.9 kg/g5Xcfsrp Rusher DPM Work Phone: 1(892)[address]05-29-2025 10:08-0400Body nnzdar35.67 kgSteven Rusher DPM Work Phone: 1(173)[address]05-07-2025 14:33-0400Body .5 cmSteven Rusher DPM Work Phone: 1(560)[address] [place], [place] 7044105-07-2025 14:33-0400Body mass index (BMI) [Ratio]28.9 kg/b7Meusbq Rusher DPM Work Phone: 8(838)217[address]05-07-2025 14:33-0400Body wtdfen93.67 kgSteven Rusher DPM Work Phone: 1(929)[address]05-05-2025 10:32-0400Body vfucpt776.48 cmBenjamin Ball DO Work Phone: [facility]05-05-2025 10:32-0400 Body mass index (BMI) [Ratio]29.1 kg/o8Ywghjqjn Ball DO Work Phone: 1(341)102-06[facility]05-05-2025 10:32-0400 Body uorqbn56.29 kgBenjamin Ball DO Work Phone: [facility]05-05-2025 10:32-0400 Diastolic blood mm[Hg]Sylvester Ball DO Work Phone: [facility]05-05-2025 10:32-0400 Heart rate67 /minBenjamin Ball DO Work Phone: 1(597)310-80[facility]05-05-2025 10:32-0400 Respiratory rate12 /minBenjamin Ball DO Work Phone: 1(670)449-29[facility]05-05-2025 10:32-0400 SaO2% (BldA) [Mass fraction]99 %Sylvester Ball DO Work Phone: 1(828)616-60[facility]05-05-2025 10:32-0400 Systolic blood oklftmkg110 mm[Hg]Sylvester Ball DO Work Phone: 1(401)097-01[facility]04-21-2025 11:04-0400 Body mass index (BMI) [Ratio]30.11 kg/s3DaligJacob Mercado MD Work Phone: [facility]04-21-2025 11:04-0400Body temperature 97.39 [degF]Jacob Mercado MD Work Phone: [facility]04-21-2025 11:04-0400Body .7 kgJacob Mercado MD Work Phone: [facility]04-21-2025 11:04-0400Diastolic blood mfwqbunm66 mm[Hg]Jacob Mercado MD Work Phone: [facility]04-21-2025 11:04-0400Heart rate67 /min Jacob Mercado MD Work Phone: [facility]04-21-2025 11:04-0400Respiratory rate 18 /minJacob Mercado MD Work Phone: [facility]04-21-2025 11:04-5634YpM4% (BldA) [Mass fraction]99 %Jacob Mercado MD Work Phone: [facility]04-21-2025 11:04-0400Systolic blood mm[Hg]Jacob Mercado MD Work Phone: [facility]03-03-2025 13:24-0500Body spmbci275.48 cmArthur William PA-C Work Phone: [facility]03-03-2025 13:24-0500 Body mass index (BMI) [Ratio]27.7 kg/d5Aoidmu William PA-C Work Phone: [facility]03-03-2025 13:24-0500 Body wijuqkunnfh79.8 [degF]Romel William PA-C Work Phone: [facility]03-03-2025 13:24-0500 Body yfyadk92.71 kgArthur William PA-C Work Phone: [facility]03-03-2025 13:24-0500 Diastolic blood noqsdgqp75 mm[Hg]Romel William PA-C Work Phone: [facility]03-03-2025 13:24-0500 Heart rate80 /minArthur William PA-C Work Phone: [facility]03-03-2025 13:24-0500 Respiratory rate16 /minArthur William PA-C Work Phone: [facility]03-03-2025 13:24-0500 SaO2% (BldA) [Mass fraction]97 %Romel William PA-C Work Phone: [facility]03-03-2025 13:24-0500 Systolic blood nlzlouar930 mm[Hg]Romel William PA-C Work Phone: 1(224)496-18[facility]02-27-2025 10:06-0500 Body yhfkoi603.48 cmArthur William PA-C Work Phone: 1(765)726-[address] [place], [place] 7465202-27-2025 10:06-0500 Body mass index (BMI) [Ratio]28.5 kg/n1Iznnwd William PA-C Work Phone: 1(154)334-[address] [place], [place] 7465202-27-2025 10:06-0500 Body .76 kgArthur William PA-C Work Phone: 1(955)[address] [place], [place] 7524102-03-2025 12:00-0500 Diastolic blood wyioqzqh77 mm[Hg]Romel William PA-C Work Phone: 0(493)[address] [place], [place] 7524102-03-2025 12:00-0500 Heart rate94 /minArthur William PA-C Work Phone: 7(935)[address]66 [address]02-03-2025 12:00-0500 Respiratory rate17 /minArthur William PA-C Work Phone: 6(781)588-[address] [place], [place] 7465202-03-2025 12:00-0500 SaO2% (BldA) [Mass fraction]98 %Romel William PA-C Work Phone: 4(810)035-[address] [place], [place] 7465202-03-2025 12:00-0500 Systolic blood vbgcnqoe003 mm[Hg]Romel William PA-C Work Phone: 1(105)211-[address] [place], [place] 7465202-03-2025 09:44-0500 Body jeplndjztmk81 [degF]Romel William PA-C Work Phone: 9(896)513-[address] [place], [place] 7465202-03-2025 06:00-0500 Body tybudx28 kgArthur William PA-C Work Phone: 9(737)68466 [address]01-31-2025 14:18-0500 Body riparh349.48 cmArthur William PA-C Work Phone: 1(419)[address] [place], [place] 7524101-30-2025 11:40-0500 Body aoegab031.48 Kathleen William PA-C Work Phone: 0(598)[address]01-30-2025 11:40-0500 Body teeizhxykrd17.6 [degF]Romel William PA-C Work Phone: 0(202)[address] [place], [place] 3732601-30-2025 11:40-0500 Body prbuya90.3 kgSandeeur William PA-C Work Phone: 7(449)[address]01-30-2025 11:40-0500 Diastolic blood mm[Hg]Romel William PA-C Work Phone: 4(999)[address] [place], [place] 3732601-30-2025 11:40-0500 Heart rate77 /minSandeeur William PA-C Work Phone: 2(683)[address] [place], [place] 3732601-30-2025 11:40-0500 Respiratory rate16 /minSandeeur William PA-C Work Phone: 4(386)[address] [place], [place] 3732601-30-2025 11:40-0500 SaO2% (BldA) [Mass fraction]97 %Romel William PA-C Work Phone: 8(678)[address]01-30-2025 11:40-0500 Systolic blood mkfmgulz224 mm[Hg]Romel Wliliam PA-C Work Phone: 1(060)[facility] [place], [place] 7465201-14-2025 14:13-0500 Body .9 Hortensia Stoneher DPM Work Phone: [facility] HospitalAspgsybaoj15-46-2335 14:13-0500Body mass index (BMI) [Ratio]28.91 kg/p8JtsmplbMarce Khan DPM Work Phone: [facility] HospitalKjcdxerfbl83-09-8664 14:13-0500Body edcbka41.4 kg Marce Khan DPM Work Phone: [facility] HospitalDktypeswyc53-93-0313 14:00-0500Body rucqbu453.94 cmArthur William PA-C Work Phone: [facility]01-10-2025 14:00-0500 Body mass index (BMI) [Ratio]29.7 kg/a8Yttlms William PA-C Work Phone: [facility]01-10-2025 14:00-0500 Body .32 kgArthur William PA-C Work Phone: [facility]01-10-2025 14:00-0500 Diastolic blood pzrlhpyj63 mm[Hg]Romel William PA-C Work Phone: [facility]01-10-2025 14:00-0500 Heart rate65 /minArthur William PA-C Work Phone: [facility]01-10-2025 14:00-0500 Respiratory rate12 /minArthur William PA-C Work Phone: [facility]01-10-2025 14:00-0500 Systolic blood hehwxatt154 mm[Hg]Romel William PA-C Work Phone: [facility]01-02-2025 11:16-0500 Body oztftm507.9 cmBryce Hendrickson MD Work Phone: [facility]01-02-2025 11:16-0500 Body mass index (BMI) [Ratio]28.91 kg/n4GbsjgdBryce Hendrickson MD Work Phone: [facility]01-02-2025 11:16-0500 Body iswfhp33.4 kgBryce Hendrickson MD Work Phone: [facility]01-02-2025 11:16-0500 Diastolic blood mm[Hg]Bryce Hendrickson MD Work Phone: [facility]01-02-2025 11:16-0500 Heart rate76 /minBryce Hendrickson MD Work Phone: [address] [place], [place] 1961101-02-2025 11:16-0500 Systolic blood mm[Hg]Bryce Hendrickson MD Work Phone: [facility]12-11-2024 14:55-0500 Body ghjtui200.94 cmArthur William PA-C Work Phone: 1(994)811-31[facility]12-11-2024 14:55-0500 Body mass index (BMI) [Ratio]29 kg/o9Cbxvyq William PA-C Work Phone: 1(293)143-[address] [place], [place] 7465212-11-2024 14:55-0500 Body uzxetk87.85 kgArthur William PA-C Work Phone: 1(197)613-[address] [place], [place] 7465212-11-2024 14:55-0500 Diastolic blood klwflgep82 mm[Hg]Romel William PA-C Work Phone: 1(149)463-28[facility]12-11-2024 14:55-0500 Heart rate77 /minArthur William PA-C Work Phone: 1(725)361-[address] [place], [place] 7465212-11-2024 14:55-0500 Respiratory rate12 /minArthur William PA-C Work Phone: 1(402)203-[address] [place], [place] 7465212-11-2024 14:55-0500 Systolic blood uaxynbxu229 mm[Hg]Romel William PA-C Work Phone: 1(307)754-40[facility]12-08-2024 14:00-0500 Diastolic blood brxysdvx40 mm[Hg]Romel William PA-C Work Phone: 1(261)985-98[facility]12-08-2024 14:00-0500 Heart rate86 /minArthur William PA-C Work Phone: 1(639)647-[address] [place], [place] 7465212-08-2024 14:00-0500 Respiratory rate20 /minArthur William PA-C Work Phone: 1(859)427-[address] [place], [place] 7465212-08-2024 14:00-0500 SaO2% (BldA) [Mass fraction]99 %Romel William PA-C Work Phone: 1(635)281-23[facility]12-08-2024 14:00-0500 Systolic blood mm[Hg]Romel William PA-C Work Phone: 1(985)[address]12-08-2024 09:00-0500 Body mcbaxwndndk62.6 [degF]Romel William PA-C Work Phone: 1(503)04866 [address]12-08-2024 06:44-0500 Body nzmxyn80.4 kgArthur William PA-C Work Phone: 1(180)[address] [place], [place] 7524112-06-2024 19:56-0500 Body goyizp431.21 cmArtjoshuar William PA-C Work Phone: 1(765)[address] [place], [place] 7524112-03-2024 14:25-0500 Body .94 cmArtjoshuar William PA-C Work Phone: 1(803)[address]66 [address]12-03-2024 14:25-0500 Body mass index (BMI) [Ratio]28.5 kg/b4Ozpmyq William PA-C Work Phone: 1(041)39066 [address]12-03-2024 14:25-0500 Body gtniun65.66 kgSandeeur William PA-C Work Phone: 1(505)[address]12-03-2024 14:25-0500 Diastolic blood iensupoh61 mm[Hg]Romel William PA-C Work Phone: 1(345)777-[address] [place], [place] 7465212-03-2024 14:25-0500 Heart rate62 /minArthur William PA-C Work Phone: 7(886)842-[address] [place], [place] 7465212-03-2024 14:25-0500 Respiratory rate12 /minArthur William PA-C Work Phone: 1(505)13166 [address]12-03-2024 14:25-0500 Systolic blood wdoewbtp976 mm[Hg]Romel William PA-C Work Phone: 1(932)[address]66 [address]11-06-2024 09:09-0500 Body yztkxz154.9 cmChuck Cope MD Work Phone: 1(634)519[facility] HospitalYnewlbqeqw70-41-0690 09:09-0500Body mass index (BMI) [Ratio]28.91 kg/e3MnnlbtChuck Cope MD Work Phone: 1(961)599[facility] HospitalYmosovusec46-37-6991 09:09-0500Body wvpipf66.4 kg Chuck Cope MD Work Phone: 1(110)[address] [place], [place] 8022111-06-2024 09:09-0500Diastolic blood jllemxei08 mm[Hg]Chuck Cope MD Work Phone: 1(996)[address] [place], [place] 8022111-06-2024 09:09-0500Systolic blood friumsfa90 mm[Hg]Chuck Cope MD Work Phone: 1(919)[address] [place], [place] 8022110-30-2024 11:04-0400Body yolfhv955.94 cmDO Sylvester Ball Work Phone: 1(718)[address] [place], [place] 5021410-30-2024 11:04-0400 Body mass index (BMI) [Ratio]28.8 kg/m2DO Sylvester Ball Work Phone: 1(276)[address] [place], [place] 5021410-30-2024 11:04-0400 Body aklwuz99.11 kgDO Sylvester Ball Work Phone: 1(556)[address] [place], [place] 5021410-30-2024 11:04-0400 Diastolic blood bqnaqtjq98 mm[Hg]DO Sylvester Ball Work Phone: 1(344)[address] [place], [place] 5021410-30-2024 11:04-0400 Heart rate62 /minDO Sylvester Ball Work Phone: 1(610)076-[address] [place], [place] 5863210-30-2024 11:04-0400 Respiratory rate12 /minDO Sylvester Ball Work Phone: 1(713)[address] [place], [place] 5021410-30-2024 11:04-0400 Systolic blood kjwyqyot491 mm[Hg]DO Sylvester Ball Work Phone: 1(644)[address] [place], [place] 5021410-08-2024 13:08-0400 Body .94 cmDO Sylvester Ball Work Phone: 1(130)661-06[facility]10-08-2024 13:08-0400 Body mass index (BMI) [Ratio]28.3 kg/m2DO Sylvester Ball Work Phone: 1(132)854-31[facility]10-08-2024 13:08-0400 Body .03 kgDO Sylvester Ball Work Phone: 1(501)[address]09-17-2024 13:24-0400 Body rnlecg825.[address] [place], [place] 3773009-17-2024 13:24-0400 Body mass index (BMI) [Ratio]29.66 kg/m2Ely [address] [place] [address] 01-18-2024 13:24-0400Body ltsaxi18.[address] [place] [address] 01-18-2024 13:24-0400Diastolic blood umrlnajq19 mm[Hg][address]09-17-2024 13:24-0400Systolic blood htnooyxw873 mm[Hg][address]08-20-2024 09:40-0400Diastolic blood nrdimkjj23 mm[Hg]DO Sylvester Ball Work Phone: 1(321)205-41[facility]08-20-2024 09:40-0400 Heart rate55 /minDO Sylvester Ball Work Phone: 1(652)[address]08-20-2024 09:40-0400 SaO2% (BldA) [Mass fraction]99 %DO Sylvester Ball Work Phone: 1(325)251-74[facility]08-20-2024 09:40-0400 Systolic blood vklodpyq373 mm[Hg]DO Sylvester Ball Work Phone: 1(377)[address]08-20-2024 09:05-0400 Inhaled oxygen flow rate3 L/minDO Sylvester Ball Work Phone: 1(889)576-83[facility]08-20-2024 08:01-0400 Body cbeebe038.21 cmDO Sylvester Ball Work Phone: 1(419)[address]08-20-2024 08:01-0400 Body .3 kgDO Sylvester Ball Work Phone: 1(505)[address] [place], [place] 5021408-20-2024 08:01-0400 Respiratory rate16 /minDO Sylvester Ball Work Phone: 1(490)[address] [place], [place] 5021408-12-2024 15:03-0400 Body .94 cmDO Sylvester Ball Work Phone: 1(681)[address] [place], [place] 5021408-12-2024 15:03-0400 Body mass index (BMI) [Ratio]28.8 kg/m2DO Sylvester Ball Work Phone: 1(132)[address] [place], [place] 5021408-12-2024 15:03-0400 Body dezlii68.11 kgDO Sylvester Ball Work Phone: 1(198)[address] [place], [place] 5021408-12-2024 15:03-0400 Diastolic blood gwujcksw57 mm[Hg]DO Sylvester Ball Work Phone: 1(141)[address] [place], [place] 5021408-12-2024 15:03-0400 Heart rate73 /minDO Sylvester Ball Work Phone: 1(048)[address] [place], [place] 5021408-12-2024 15:03-0400 Respiratory rate12 /minDO Sylvester Ball Work Phone: 1(603)[address] [place], [place] 5021408-12-2024 15:03-0400 Systolic blood appodkre66 mm[Hg]DO Sylvester Ball Work Phone: 1(618)[address] [place], [place] 5021407-24-2024 10:50-0400 Body sdliwy337.94 cmDO Sylvester Ball Work Phone: 1(641)[address] [place], [place] 5021407-24-2024 10:50-0400 Body mass index (BMI) [Ratio]29.5 kg/m2DO Sylvester Ball Work Phone: 1(905)[address] [place], [place] 5021407-24-2024 10:50-0400 Body fkhavd94 kgDO Sylvester Ball Work Phone: 1(593)[address] [place], [place] 5021407-01-2024 13:04-0400 Body sywhla994.94 cmDO Sylvester Ball Work Phone: 1(058)288-92[facility]07-01-2024 13:04-0400 Body mass index (BMI) [Ratio]29.6 kg/m2DO Sylvester Ball Work Phone: 1(047)628-16[facility]07-01-2024 13:04-0400 Body scjvui38.21 kgDO Sylvester Ball Work Phone: 1(203)[address]07-01-2024 13:04-0400 Diastolic blood yyjkomhg34 mm[Hg]DO Sylvester Ball Work Phone: 1(253)[address]07-01-2024 13:04-0400 Heart rate66 /minDO Sylvester Ball Work Phone: 1(393)[address]07-01-2024 13:04-0400 SaO2% (BldA) [Mass fraction]100 %DO Sylvester Ball Work Phone: 1(285)[address]07-01-2024 13:04-0400 Systolic blood eadxxujk616 mm[Hg]DO Sylvester Ball Work Phone: 1(410)[address]51 [address]06-18-2024 10:10-0400 Body huklqg189.94 cmDO Sylvester Ball Work Phone: 1(898)[address]51 [address]06-18-2024 10:10-0400 Body mass index (BMI) [Ratio]29.5 kg/m2DO Sylvester Ball Work Phone: 1(801)[address]06-18-2024 10:10-0400 Body .93 kgDO Sylvester Ball Work Phone: 1(761)[address]05-14-2024 15:14-0400 Body wsjaqe366.94 cmDO Sylvester Ball Work Phone: 1(010)[address]05-14-2024 15:14-0400 Body mass index (BMI) [Ratio]28.7 kg/m2DO Sylvester Ball Work Phone: 1(268)[address]05-14-2024 15:14-0400 Body nltyzx29 kgDO Sylvester Ball Work Phone: 1(419)[address] [place], [place] [address]21405-14-2024 15:14-0400 Diastolic blood apsobgtf93 mm[Hg]DO Sylvester Ball Work Phone: 1(930)[address]05-14-2024 15:14-0400 Heart rate65 /minDO Sylvester Ball Work Phone: [phone])[phone] [place], [place] 5863205-14-2024 15:14-0400 Respiratory rate12 /minDO Sylvester Ball Work Phone: [phone])[address] [place], [place] 5021405-14-2024 15:14-0400 Systolic blood mm[Hg]DO Sylvester Ball Work Phone: 1(128)[address] [place], [place] 5021405-07-2024 08:57-0400 Diastolic blood empcfwlv63 mm[Hg]DO Sylvester Ball Work Phone: 1(966)[address]05-07-2024 08:57-0400 Heart rate64 /minDO Sylvester Ball Work Phone: 1(402)[address] [place], [place] 5021405-07-2024 08:57-0400 Respiratory rate16 /minDO Sylvester Ball Work Phone: 1(373)[address] [place], [place] 5021405-07-2024 08:57-0400 SaO2% (BldA) [Mass fraction]98 %DO Sylvester Ball Work Phone: 1(407)[address]05-07-2024 08:57-0400 Systolic blood xtdhlqbe852 mm[Hg]DO Sylvester Ball Work Phone: 1(658)[address] [place], [place] 5021405-07-2024 08:21-0400 Inhaled oxygen flow rate3 L/minDO Sylvester Ball Work Phone: 1(133)[address] [place], [place] 5021405-07-2024 07:26-0400 Body zuwspi673.94 cmDO Sylvester Ball Work Phone: 1(031)[address]05-07-2024 07:26-0400 Body .21 kgDO Sylvester Ball Work Phone: 1(632)[address] [place], [place] 5021403-19-2024 10:36-0400 Body .94 [facility] 10:36-0400Body mass index (BMI) [Ratio]29.8 kg/t3QfwlujixoHolmes [facility]03-19-2024 10:36-0400Body gbjyjp68.66 kgHolmes [facility]03-14-2024 10:39-0400Body sontqi904.9 cmBryce Hendrickson MD Work Phone: [facility]03-14-2024 10:39-0400 Body mass index (BMI) [Ratio]29.66 kg/y8HqwwqsBryce Hendrickson MD Work Phone: 9(929)084-[address] [place], [place] 7520803-14-2024 10:39-0400 Body jngykz21.22 kgBryce Hendrickson MD Work Phone: 9(963)584-[address] [place], [place] 7520803-14-2024 10:39-0400 Diastolic blood pcrtyfrs42 mm[Hg]Bryce Hendrickson MD Work Phone: 4(726)490-75[facility]03-14-2024 10:39-0400 Heart rate64 /minBryce Hendrickson MD Work Phone: [facility]03-14-2024 10:39-0400 Systolic blood wspbzolt126 mm[Hg]Bryce Hendrickson MD Work Phone: [facility]02-20-2024 13:28-0500 Body qknuqw988.5 cmJacob Mercado MD Work Phone: [facility]02-20-2024 13:28-0500Body temperature 97.59 [degF]Jacob Mercado MD Work Phone: [facility]02-20-2024 13:28-0500Body .6 kgJacob Mercado MD Work Phone: [facility]02-20-2024 13:28-0500Diastolic blood mooaqtsm45 mm[Hg]Jacob Mercado MD Work Phone: [facility]02-20-2024 13:28-0500Heart rate67 /min Jacob Mercado MD Work Phone: [facility]02-20-2024 13:28-0500Respiratory rate 16 /minJacob Mercado MD Work Phone: [facility]02-20-2024 13:28-8888InK8% (BldA) [Mass fraction]96 %Jacob Mercado MD Work Phone: [facility]02-20-2024 13:280500Systolic blood idwkigiu003 mm[Hg]Jacob Mercado MD Work Phone: [facility]02-19-2024 10:54-0500Body tarykq230.94 cmDO [employer] Work Phone: [facility]02-19-2024 10:54-0500 Body mass index (BMI) [Ratio]29.5 kg/m2DO [employer] Work Phone: [facility]02-19-2024 10:54-0500 Body asymgv91.93 kgDO [employer] Work Phone: [facility]01-24-2024 10:40-0500 Body vxxurh213.94 cmJeflakitoica [employer] Other [facility]01-24-2024 10:40-0500 Body mass index (BMI) [Ratio]30.04 kg/k1Zyoyclm [employer] Other [place] [employer] Other [phone] 10:40-0500Body ixpcon46.12 kgJessica [employer] Other [facility]12-28-2023 14:00-0500 Body kktuwr589.94 cmBenPoint2 Property Manager Other [facility]12-28-2023 14:00-0500 Body mass index (BMI) [Ratio]30.15 kg/a7Ygmdvwif Ball Other [place] [employer] Other [id number] 14:00-0500Body ytmlmd39.39 kgBenjamin Ball Other [facility]12-28-2023 14:00-0500 Diastolic blood pcfnohxa75 mm[Hg]Sylvester Ball Other [facility]12-28-2023 14:00-0500 Systolic blood qvewutlg910 mm[Hg]Sylvester Ball Other [facility]12-26-2023 11:00-0500 Body .94 cmDale Moreau Other [facility]12-26-2023 11:00-0500 Body mass index (BMI) [Ratio]29.66 kg/m2Dalela Moreau Other [employer] Other 12-26-2023 11:00-0500Body kfaaao48.22 kgDale Moreau Other [facility] [employer] Other 12-26-2023 11:00-0500Body hcfasq63.21 kgDO Sylvester Ball Work Phone: 1([phone]12-19-2023 11:34-0500 Diastolic blood sxxutvrr04 mm[Hg]DO Sylvester Ball Work Phone: 1(922)507-83[facility]12-19-2023 11:34-0500 Systolic blood mm[Hg]DO Sylvester Ball Work Phone: 1(612)598-58[facility]12-19-2023 06:13-0500 Body auurxulryhc67.4 [degF]DO Sylvester Ball Work Phone: 1(833)671-31[facility]12-19-2023 06:13-0500 Body kgDO Sylvester Ball Work Phone: 1(816)344-04[facility]12-19-2023 06:13-0500 Heart rate84 /minDO Sylvester Ball Work Phone: 3(691)058-67[facility]12-19-2023 06:13-0500 Respiratory rate18 /minDO Sylvester Ball Work Phone: 1(419)[address] [place], [place] 5021412-19-2023 06:13-0500 SaO2% (BldA) [Mass fraction]99 %DO Sylvester Ball Work Phone: 1(752)[address] [place], [place] 5021412-15-2023 08:45-0500 Body qxppei189.94 cmDO Sylvester Ball Work Phone: 1(660)[address] [place], [place] 5021412-14-2023 11:35-0500 Body ripnhzvbukm72.7 [degF]DO Sylvester Ball Work Phone: 1419)[address] [place], [place] 5021412-14-2023 11:35-0500 Diastolic blood nufmyhng58 mm[Hg]DO Sylvester Ball Work Phone: 1(068)[address] [place], [place] 5021412-14-2023 11:35-0500 Heart rate71 /minDO Sylvester Ball Work Phone: 1(979)[address] [place], [place] 5021412-14-2023 11:35-0500 Respiratory rate12 /minDO Sylvester Ball Work Phone: 1(039)[address] [place], [place] 5021412-14-2023 11:35-0500 SaO2% (BldA) [Mass fraction]100 %DO Sylvester Ball Work Phone: 1(545)[address] [place], [place] 5021412-14-2023 11:35-0500 Systolic blood jvqkzumx87 mm[Hg]DO Sylvester Ball Work Phone: 1(020)[address] [place], [place] 5021412-14-2023 06:00-0500 Body peqswb18 kgDO Sylvester Ball Work Phone: 1(774)[address] [place], [place] 5021412-12-2023 10:50-0500 Inhaled oxygen flow rate2 L/minDO Sylvester Ball Work Phone: 1(401)[address] [place], [place] 5021412-12-2023 06:58-0500 Body cqqpru763.21 cmDO Sylvester Ball Work Phone: 1(916)[address] [place], [place] 5021412-12-2023 06:58-0500 Body mass index (BMI) [Ratio]28.8 kg/m2DO Sylvester Ball Work Phone: 1(969)[address] [place], [place] 5021412-08-2023 07:17-0500 Body uukyvr993.21 cmDO Sylvester Ball Work Phone: 1(201)[address]12-08-2023 07:17-0500 Body mass index (BMI) [Ratio]28.7 kg/m2DO Sylvester Ball Work Phone: 1(904)[address]12-08-2023 07:17-0500 Body evdwqf76 kgDO Sylvester Ball Work Phone: 1(732)[address]12-08-2023 05:55-0500 Body khblztfytpe30.6 [degF]DO Sylvester Ball Work Phone: 1(935)[address] [place], [place] 5021412-08-2023 05:55-0500 Diastolic blood obiobnpg74 mm[Hg]DO Yslvester Ball Work Phone: 1(086)[address] [place], [place] 5021412-08-2023 05:55-0500 Heart rate63 /minDO Sylvester Ball Work Phone: 1(203)[address] [place], [place] 5021412-08-2023 05:55-0500 Respiratory rate18 /minDO Sylvester Ball Work Phone: 1(180)[address] [place], [place] 5021412-08-2023 05:55-0500 SaO2% (BldA) [Mass fraction]100 %DO Sylvester Ball Work Phone: 1(989)[address] [place], [place] 5021412-08-2023 05:55-0500 Systolic blood uaudtmgl765 mm[Hg]DO Sylvester Ball Work Phone: 1(429)[address]11-16-2023 10:58-0500 Body mniojo260.9 cmBryce Hendrickson MD Work Phone: [facility]11-16-2023 10:58-0500 Body mass index (BMI) [Ratio]29.48 kg/q5ZaxolaBryce Hendrickson MD Work Phone: [facility]11-16-2023 10:58-0500 Body jzfavt71.76 kgBryce Hendrickson MD Work Phone: [facility]11-16-2023 10:58-0500 Diastolic blood qfemzmyf63 mm[Hg]Bryce Hendrickson MD Work Phone: [facility]11-16-2023 10:58-0500 Heart rate62 /minBryce Hendrickson MD Work Phone: 1(325)906-[address] [place], [place] 7520811-16-2023 10:58-0500 Systolic blood wrvawdfj648 mm[Hg]Bryce Hendrickson MD Work Phone: 7(514)806-[address] [place], [place] 7520811-08-2023 11:00-0500 Body .94 cmRadha Moreau Other [employer] Other [id number] 11:00-0500Body mass index (BMI) [Ratio] 29.21 kg/g0GaqrrnRadha Moreau Other [employer] Other 11-08-2023 11:00-0500Body comxgy28.13 kgRadha Moreau Other [employer] Other 11-08-2023 11:00-0500Diastolic blood iemdcvwn61 mm[Hg] Radha Moreau Other [employer] Other 11-08-2023 11:00-0500Systolic blood ixmnpjkv903 mm[Hg] Radha Moreau Other [facility] Other [id number] 10:00-0400Body tikmyf087.5 cmBryce Hendrickson MD Work Phone: 9(720)257-[address] [place], [place] 7520810-31-2023 10:00-0400 Body mass index (BMI) [Ratio]28.35 kg/e3UywqjkBryce Hendrickson MD Work Phone: 5(160)552-[address] [place], [place] 7520810-31-2023 10:00-0400 Body ngtihd39.31 kgBryce Hendrickson MD Work Phone: 6(865)579-[address] [place], [place] 7520810-31-2023 10:00-0400 Diastolic blood gipvsogh04 mm[Hg]Bryce Hendrickson MD Work Phone: 7(416)928-[address] [place], [place] 7520810-31-2023 10:00-0400 Heart rate68 /minBryce Hendrickson MD Work Phone: 5(542)063-[address] [place], [place] 7520810-31-2023 10:00-0400 Systolic blood lcklitov190 mm[Hg]Bryce Hendrickson MD Work Phone: 2(547)974-[address] [place], [place] 7520810-26-2023 10:20-0400 Body .94 cmDalela Moreau Other [employer] Other Phone: [phone] 10:20-0400Body mass index (BMI) [Ratio] 29.66 kg/m2Dalela Moreau Other [employer] Other 10-26-2023 10:20-0400Body fissvb06.22 kgDale Moreau Other [employer] Other 09-21-2023 09:20-0400Body eplnnu905.94 cmDale Moreau Other [employer] Other 09-21-2023 09:20-0400Body mass index (BMI) [Ratio] 29.09 kg/m2Devin Moreau Other [employer] Other 09-21-2023 09:20-0400Body iecttr29.85 kgDale Moreau Other [employer] Other 09-21-2023 09:20-0400Diastolic blood mm[Hg] Devin Moreau Other [employer] Other 09-21-2023 09:20-0400Systolic blood cufvetvd257 mm[Hg] Devin Moreau Other [employer] Other 09-07-2023 08:45-0400Body rgdcho177.94 cmBenjamin Ball Other [employer] Other 09-07-2023 08:45-0400Body mass index (BMI) [Ratio] 29.51 kg/p8Gmczvbvr Ball Other [employer] Other 09-07-2023 08:45-0400Body xneqoh22.85 kgBenjamin Ball Other [employer] Other 09-07-2023 08:45-0400Diastolic blood qkodxida23 mm[Hg] Sylvester Ball Other [employer] Other 09-07-2023 08:45-0400Respiratory rate12 /minBenjamin Ball Other [employer] Other 09-07-2023 08:45-0400Systolic blood bonoarlb383 mm[Hg] Sylvester Ball Other [employer] Other 03-16-2023 11:30-0400Body dumauu645.94 cmBenjamin Ball Other [employer] Other 03-16-2023 11:30-0400Body mass index (BMI) [Ratio] 28.04 kg/o5Izhiyclk Ball Other [employer] Other 03-16-2023 11:30-0400Body vyoorl85.31 kgBenjamin Ball Other [employer] Other 03-16-2023 11:30-0400Diastolic blood lcydkztp76 mm[Hg] Sylvester Jacob Other [facility] [employer] Other 03-16-2023 11:30-0400Respiratory rate12 /minBenhaseeb Jacob Other [facility] [employer] Other 03-16-2023 11:30-0400Systolic blood tceeztqh521 mm[Hg] Sylvester Jacob Other [place] [employer] Other 02-21-2023 14:40-0500Body ocmhtn831.94 cmDale Moreau Other [facility] [employer] Other 02-21-2023 14:40-0500Body mass index (BMI) [Ratio] 31.36 kg/m2Dale Moreau Other [employer] Other 02-21-2023 14:40-0500Body .3 kgDale Lizzeth Other [employer] Other 02-08-2023 12:00-749380 1Bmatt Jacob Work Phone: 1(465) 248-5787940-1368[facility] Work Phone: Comment on above:[id number] 13:19-0500Body jvuwfy772.5 cmJacob Mercado MD Work Phone: [facility]01-17-2023 13:19-0500Body temperature 97.39 [degF]Jacob Mercado MD Work Phone: [facility]01-17-2023 13:19-0500Body thnpfo24.22 kgJacob Mercado MD Work Phone: [facility]01-17-2023 13:19-0500Diastolic blood mm[Hg]Jacob Mercado MD Work Phone: [facility]01-17-2023 13:19-0500Heart rate66 /min Jacob Mercado MD Work Phone: [facility]01-17-2023 13:19-0500Respiratory rate 18 /minJacob Mercado MD Work Phone: [facility]01-17-2023 13:19-7971AsW6% (BldA) [Mass fraction]97 %Jacob Mercado MD Work Phone: [facility]01-17-2023 13:19-0500Systolic blood dtcyvspd680 mm[Hg]Jacob Mercado MD Work Phone: [facility]01-12-2023 14:20-0500Body zlsjet638.94 cmBioniq Healthica [employer] Other [employer] Other 01-12-2023 14:20-0500Body mass index (BMI) [Ratio] 31.36 kg/k4Acrkijm [employer] Other [employer] Other 01-12-2023 14:20-0500Body aklqvc48.3 kgJessica [employer] Other [employer] Other 01-10-2023 11:27-0500Body .94 cmBenjamin E Ball Work Phone: [phone]-Smgxt [place] [address] DO Work Phone: 1(522) 236-283001-10-2023 11:27-0500Body mass index (BMI) [Ratio] 29.67 kg/e4Iwascwyl E Ball Work Phone: [phone]-Ivhpa [place] [address] DO Work Phone: 1(614) 285-558701-10-2023 11:27-0500Body surface area Derived from formula1.7 v6Edomjwtd E Ball Work Phone: mp493-9310NU-Hvgsx [place] [address] DO Work Phone: 1(391) 556-199101-10-2023 11:27-0500Body cdwjuv10.22 kgBenjamin E Ball Work Phone: 1(276) 736-4380189-3688UE-Utasu [place] [facility] [address] DO Work Phone: 1(263) 670-229001-10-2023 11:27-0500Diastolic blood mm[Hg] Sylvester E Ball Work Phone: mp493-8875NH-Xdaxm [place] [facility] [address] DO Work Phone: 1(729) 704-902101-10-2023 11:27-0500Heart rate72 /minBenjamin E Ball Work Phone: 1(987) [phone]-Mypdg [place] [facility] [address] DO Work Phone: 1(143) 762-990701-10-2023 11:27-0500Systolic blood zzunsqbd482 mm[Hg] Sylvester E Ball Work Phone: mp796-9426JS-Onffa [place] [facility] [address] DO Work Phone: 1(671) 811-515611-30-2022 07:54-0500Body bvjalpakwal72.1 [degF]DO Sylvester Ball Work Phone: 1(320)[address]11-30-2022 07:54-0500 Diastolic blood jhcgaxpq28 mm[Hg]DO Sylvester Ball Work Phone: 1(124)042-[address] [place], [place] 5863211-30-2022 07:54-0500 Heart rate75 /minDO Sylvester Ball Work Phone: 1(711)876-01[facility]11-30-2022 07:54-0500 Respiratory rate16 /minDO Sylvester Ball Work Phone: 1(172)940-45[facility]11-30-2022 07:54-0500 SaO2% (BldA) [Mass fraction]98 %DO Sylvester Ball Work Phone: 1(434)141-09[facility]11-30-2022 07:54-0500 Systolic blood mm[Hg]DO Sylvester Ball Work Phone: 1(645)[address]11-30-2022 04:13-0500 Body ysqdlg17.8 kgDO Sylvester Ball Work Phone: 1(551)056-[address] [place], [place] 5863211-29-2022 00:09-0500 Inhaled oxygen qyahdvtekaomg69 %DO Sylvester Ball Work Phone: [facility]11-28-2022 16:00-0500 Inhaled oxygen flow rate2 L/minDO Sylvester Ball Work Phone: [facility]11-28-2022 08:58-0500 Body iprftu162.21 cmDO Sylvester Ball Work Phone: [facility]11-28-2022 08:58-0500 Body mass index (BMI) [Ratio]29.6 kg/m2DO Sylvester Ball Work Phone: 1(298)019-97[facility]10-11-2022 08:39-0400 Body babovo462.94 cmBenjamin E Ball Work Phone: 1(940) 365-7875176-5934XM-Hdwut [place] [employer] [facility] TravelSaint Francis Medical CenterMapleton 600 DO Work Phone: 1(727)[phone]-6731 08:39-0400Body mass index (BMI) [Ratio] 30.42 kg/m8Plazggpf E Ball Work Phone: 1(294) 277-2048072-5670AP-QnmpoWorthington Medical Centerwalk 600 DO Work Phone: 1(683)643-09559-819682-73286882-59-0315 08:39-0400Body surface area Derived from formula1.72 n2Xrqrzxkp E Ball Work Phone: 1(298) [phone]-StgtkWorthington Medical Centerk 600 DO Work Phone: 1(504)042-163-883633-05 08:39-0400Body mufgkc21.03 kgBenjamin E Ball Work Phone: 1(931) 427-9981896-7348JD-PjsyaWorthington Medical Centerwalk 600 DO Work Phone: 1(956) 455-518410-11-2022 08:39-0400Diastolic blood theawwds72 mm[Hg] Sylvester E Ball Work Phone: 1(166) [phone]-KfcapWorthington Medical Centerk 600 DO Work Phone: 1(903) 550-827710-11-2022 08:39-0400Heart rate62 /minBenjamin E Ball Work Phone: 1(478) 539-9005312-1432DW-KavjcWorthington Medical Centerk 600 DO Work Phone: 1(781) 679-682010-11-2022 08:39-0400Systolic blood tixwcrnq124 mm[Hg] Sylvester Rosenthal Ball Work Phone: 1(726) 160-6001579-4904BX-Rhkel [place] [address] [address] DO Work Phone: 1(376) 880-704009-20-2022 12:40-0400Body rocvwt835.94 cmDale Moreau Other [employer] Other 09-20-2022 12:40-0400Body mass index (BMI) [Ratio] 31.36 kg/m2Dale Moreau Other [employer] Other 09-20-2022 12:40-0400Body ksappn73.3 kgDale Moreau Other [employer] Other 08-30-2022 10:00-0400Body xwzwyp796.94 cmDale Moraeu Other [employer] Other 08-30-2022 10:00-0400Body mass index (BMI) [Ratio] 31.36 kg/m2Dale Moreau Other [employer] Other 08-30-2022 10:00-0400Body .3 kgDale Moreau Other [employer] Other 07-05-2022 12:00-0400Body kkqruv305.94 cmDale Moreau Other [employer] Other 07-05-2022 12:00-0400Body mass index (BMI) [Ratio] 31.17 kg/m2Dale Moreau Other [employer] Other 07-05-2022 12:00-0400Body xosnbq60.84 kgDale Moreau Other [employer] Other 06-09-2022 11:59-0400Body crnbugnuvsf09.2 [degF]DO Sylvester Ball Work Phone: 1(610)511-[address] [place], [place] 5863206-09-2022 11:59-0400 Diastolic blood torgxmdx28 mm[Hg]DO Sylvester Ball Work Phone: 1(052)[address]06-09-2022 11:59-0400 Heart rate73 /minDO Sylvester Ball Work Phone: 1(780)[address]06-09-2022 11:59-0400 Respiratory rate13 /minDO Sylvester Ball Work Phone: 1(713)678-[address] [place], [place] 5863206-09-2022 11:59-0400 SaO2% (BldA) [Mass fraction]99 %DO Sylvester Ball Work Phone: 1(347)[address]06-09-2022 11:59-0400 Systolic blood tarqrsdg746 mm[Hg]DO Sylvester Ball Work Phone: 1(005)060-[address] [place], [place] 5863206-09-2022 04:55-0400 Body kgDO Sylvester Ball Work Phone: 1(122)135-[address] [place], [place] 5863206-08-2022 14:14-0400 Inhaled oxygen flow rate8 L/SalenaO Sylvester Ball Work Phone: 1(283)[address]06-08-2022 12:02-0400 Body mass index (BMI) [Ratio]30.8 kg/m2DO Sylvester Ball Work Phone: 1(032)[address]06-08-2022 11:59-0400 Body zhkgyi387.02 cmDO Sylvester Ball Work Phone: 1(246)150-[address] [place], [place] 5863204-07-2022 16:20-0400 Body wlekqk438.94 cmDalela Moreau Other [employer] Other 04-07-2022 16:20-0400Body mass index (BMI) [Ratio] 31.17 kg/m2Dalela Moreau Other [place] [employer] Other 04-07-2022 16:20-0400Body aieewc84.84 kgDale Moreau Other [employer] Other Encounters Encounter DateEncounter TypeCare ProviderFacilityStart: 02-19-2025 End: 88-53-4669Lcaaajrevj hospital visit by physicianEna [place] Echo/Vasc Room 2[facility] HospitalComment on above:Mitral valve insufficiency, unspecified etiology; Left ventricular systolic dysfunctionStart: 02-19-2025 End: 81-47-1376bykcyqqxaqBZJRTN [facility] Hospitaltart: 02-12-2025 End: 31-28-2432Rnjppk outpatient visit 15 minutesDick PEREZ Work Phone: [facility] OrthopaedicsComment on above:Acute pain of right shoulder (Primary Dx); Rotator cuff arthropathy of right shoulder; Subacromial impingement of right shoulderStart: 02-12-2025 End: 98-65-8614xtqkvaotxoKIRKNQH J MEYERNot AvailableStart: 02-12-2025 End: 70-80-3541Lvpksfalec PEREZ Work Phone: [facility] OrthopaedicsStart: 02-12-2025 End: 85-04-4213Niagpnalec PEREZ Work Phone: [facility] OrthopaedicsStart: 01-30-2025 End: 59-21-2963Cpzzxo outpatient visit 25 minutesBryce Hendrickson MD Work Phone: [facility] above:Mitral valve insufficiency, unspecified etiology (Primary Dx); Left ventricular systolic dysfunction; Essential hypertension; LBBB (left bundle branch block); BMI 28.0-28.9,adult; Never smoked tobacco; Stage 3a chronic kidney disease (Multi)Start: 01-30-2025 End: 97-85-4372sblnywcftuFJZVTR [facility] AmbulatoryStart: 01-15-2025 End: 91-87-7803agxtjxdaagTdyrbucy Ball DO Work Phone: [facility] Work Phone: Start: 01-15-2025 End: 42-29-4518Kouwmhw encounter procedureBereal Jacob DO-[facility] Work Phone: Start: 01-11-2025 End: 43-68-4497Afpgtxv encounter Rupert Mathews MD-[facility] Work Phone: Start: 01-11-2025 End: 38-32-4575irnfpbtimmKjlectbz Ball DO Work Phone: [facility] Work Phone: Start: 28-32-0991Gzh-patient / Non-visitCatherine Wm CRUSHER ASSEMBLER-[facility] Work Phone: Start: 10-30-3547Ncw-patient / Non-visitBenjamin Ball DO-[facility] Work Phone: Start: 07-19-3206Mxl-patient / Non-visitBenjamin Ball DO-[facility] Work Phone: Start: 01-52-1853Ogw-patient / Non-visitChristian Heriberto Palacios MD-[facility] Work Phone: Start: 51-23-1594Dsq-patient / Non-visitChristian Heriberto Palacios MD-[facility] Work Phone: Start: 47-33-0802Gcv-patient / Non-visitMarley Mendieta APRN-[facility] Work Phone: Start: 11-14-2024 End: 84-31-2411Mggzanhhms and management of inpatientBenhaseeb Ball [facility]: 04-38-9900Xpo-patient / Non-visitGeorge Jayce Juan MD-[facility] Work Phone: Start: 11-02-2024 End: 46-00-2228Bxdlduzyvx and management of inpatientJosh Sosa MD-[facility] Work Phone: Start: 19-68-5706Cmt-patient / Non-visitSin Martinez MD-[facility] G[facility] Work Phone: Start: 10-23-2024 End: 81-23-5847Oabtns flowsJos Linda MD Work Phone: [facility] NEUROLOGYStart: 10-23-2024 End: 17-28-1887Utpeae Julianna Linda MD Work Phone: [facility] NEUROLOGYStart: 10-23-2024 End: 42-74-4013Qlrbdj outpatient new 45 minutesBran Linda MD Work Phone: [facility] SWS NEURComment on above:Bilateral carpal tunnel syndrome (Primary Dx); Idiopathic progressive neuropathyStart: 10-23-2024 End: 05-51-1871rnfczpezwwOORFOPG W BAUERNot AvailableStart: 27-31-4563Dwi- patient / Non-visitBenhaseeb Jacob DO-[facility] Work Phone: Start: 09-29-2024 End: 51-82-2934cuhqhkultuCuhxpqspbDiley [facility] Work Phone: Start: 09-29-2024 End: 64-02-1337Tsflyyz encounter procedureCounts Include [facility] Work Phone: Start: 09-28-2024 End: 80-09-8244Vwbape flowsheetSteven A Rusher DPM Work Phone: [facility] PODIATRYStart: 09-28-2024 End: 06-91-3628Piqhvw flowsheetSteven A Rusher DPM Work Phone: [facility] PODIATRYStart: 09-28-2024 End: 27-04-6054vouuwqfpmkCHUGGY A RUSHERNot AvailableStart: 09-28-2024 End: 37-49-9978Crevba outpatient visit 25 minutesSteven A Rusher DPM Work Phone: [facility] PODIATRYComment on above:Osteoarthritis of midtarsal joint of left foot (Primary Dx); Capsulitis of left foot; Pain in joint of left foot; Pain and swelling of toe of left foot; Difficulty walkingStart: 09-28-2024 End: 68-99-2277xkyuzjhiihMOUXDR A RUSHERNot AvailableStart: 09-06-2024 End: 91-88-9324Qvqhdwq encounter procedureSteven A Rusher DPM Work Phone: noms PODIATRYComment on above:Dermatophytosis of nail (Primary Dx); Dystrophic nail; Pain around toenail, right foot; Pain around toenail, left footStart: 09-06-2024 End: 05-03-6896zxkbgvecbiJRLPNM A RUSHERNot AvailableStart: 09-06-2024 End: 96-95-9432Bniajs flowsheetSteven A Rusher DPM Work Phone: [facility] PODIATRYStart: 09-06-2024 End: 89-09-5246Qtwbbk flowsheetSteven A Rusher DPM Work Phone: [facility] PODIATRYStart: 05-19-3222Ift-patient / Non-visitCounts Include 234 Beds At [facility] [employer] Work Phone: Start: 09-04-2024 End: 83-44-9766qtxqnhkryjXposbebk Ball DO Work Phone: [facility] Work Phone: Start: 09-04-2024 End: 91-45-8432Xmwjtex encounter procedureBenjamin Ball DO Work Phone: [facility] Physician GroupCh[facility] Work Phone: Start: 08-21-2024 End: 22-43-3149Pvqqmtk encounter procedureBrian R Mercado MD Work Phone: Hematology/OncologyStart: 08-21-2024 End: 58-05-4131prtwfyxsyjTesdg R Murphy MD Work Phone: Hematology/OncologyComment on above:Malignant neoplasm of upper-outer quadrant of left breast in female, estrogen receptor negative (HCC) (Primary Dx)Start: 08-07-2024 End: 47-61-2056HxhrjqTxiix R Murphy MD Work Phone: Hematology/OncologyComment on above:Refill Request Start: 07-24-2024 End: 65-75-7564pchrjokqozTniguahp Ball DO Work Phone: [facility] Work Phone: Start: 07-24-2024 End: 56-79-5496Fjstdvw encounter procedureSylvester Jacob DO Work Phone: [facility] [address] [facility] Physician [facility] Work Phone: Start: 07-03-2024 End: 90-80-7969Vlezyqenp encounterHianna Cope MD Work Phone: noms ENTComment on above:cancel fu appt for ct scan not doneStart: 07-03-2024 End: 56-65-1965tqsbnocdgqMaopbl J Myers PA-C Work Phone: [facility] Work Phone: Start: 07-03-2024 End: 34-60-3435Dudbjru encounter procedureRomel William PA-C Work Phone: [facility] [address] [facility] Physician [facility] Work Phone: Start: 06-29-2024 End: 03-52-9697demugyqheoNwsnnv J Myers PA-C Work Phone: [facility] Work Phone: Start: 06-29-2024 End: 91-09-1795Nvcgywv encounter procedureArthfrancheska William PA-C Work Phone: [facility] [address] [facility] Physician [facility] Work Phone: Start: 06-29-2024 End: 95-23-1817Amryffm encounter procedureArthfrancheska William PA-C Work Phone: [facility] Start: 06-29-2024 End: 44-62-9652desapdmskoEdgnbo Brian Stewart PA-C Work Phone: [facility] Work Phone: Start: 34-60-5707Hmo-patient / Non-visitArthur Stewart PA-C Work Phone: [facility] [address] [facility] Physician [facility] Work Phone: Start: 02-54-1556Vua-patient / Non-visitBenjaMercy Health [facility] DO Work Phone: [facility]-H[facility] Yost [facility] Work Phone: Start: 92-92-4724Oju-patient / Non-visitArthur Stewart PA-C Work Phone: [facility] [address] [facility] Physician [facility] Work Phone: Start: 69-93-9607Skc-patient / Non-visitArthur Stewart PA-C Work Phone: [facility] [address] [facility] Physician [facility] Work Phone: Start: 57-57-9215Ejk-patient / Non-visitArthur Stewart PA-C Work Phone: [facility] [address] [facility] Physician Group-Harshal Yost at [place] Work Phone: Start: 06-01-2024 End: 16-12-6027Fczbxlelgr and management of inpatientArthur Stewart PA-C Work Phone: [facility] Work Phone: Start: 05-29-2024 End: 84-44-1342oirxcjdkgfZYZBFRPX D ZAHLERNot AvailableStart: 05-29-2024 End: 01-96-2414Uuihwg flowsheetAllen Mackhler DO Work Phone: noms OPHTStart: 05-29-2024 End: 14-10-1636Mlores flowsheetAllen Díazer DO Work Phone: noms OPHTStart: 05-16-2024 End: 10-68-8793Cycvls outpatient visit 15 minutesAnthony S Cariher DPM Work Phone: noms PODIATRYComment on above:Dermatophytosis of nail (Primary Dx); Dystrophic nail; Pain in both feetStart: 05-16-2024 End: 12-82-0502lpfxildmoqLBHRVXC S CARIHERNot AvailableStart: 05-16-2024 End: 79-60-3777Pvkjtn flowsheetAnthony S Rusher DPM Work Phone: noms PODIATRYStart: 05-16-2024 End: 50-84-5700Fohrwn flowsheetAnthony S Rusher DPM Work Phone: noms PODIATRYStart: 05-12-2024 End: 39-50-0390sdzjtlufwlEohsus J Myers PA-C Work Phone: [facility] Work Phone: Start: 05-12-2024 End: 63-00-3151Qlijvzl encounter procedureRomel William PA-C Work Phone: [facility] [address] [facility] Physician GroupC[facility] Work Phone: Start: 05-04-2024 End: 63-04-2970Nwwycu outpatient visit 25 minutesBryce Hendrickson MD Work Phone: FirelandsComment on above:Mitral valve insufficiency, unspecified etiology (Primary Dx); Left ventricular systolic dysfunction; Essential hypertension; LBBB (left bundle branch block); BMI 28.0-28.9,adult; Stage 3a chronic kidney disease (Multi)Start: 05-04-2024 End: 21-20-6839fzgnwhxiraLEHWRI M [facility] AmbulatoryStart: 65-54-3036Dmg-patient / Non-visitArthur William PA-C Work Phone: [facility] [employer] Work Phone: Start: 04-12-2024 End: 44-44-7328Naqwpda encounter procedureArthur William PA-C Work Phone: [facility] [address] [facility] Physician Group-[facility] Work Phone: Start: 51-15-8990Mme-patient / Non-visitArthur William PA-C Work Phone: [facility] [address] [facility] Physician Group-[facility] Work Phone: Start: 01-50-9310Jda-patient / Non-visitArthur William PA-C Work Phone: [facility] [address] [facility] Physician Group-[facility] Work Phone: Start: 19-54-3139Xnv-patient / Non-visitArthur William PA-C Work Phone: [facility] [address] [facility] Physician Group-[facility] Work Phone: Start: 04-07-2024 End: 28-64-7632Virekniizr and management of inpatientArthur William PA-C Work Phone: [facility] Work Phone: Start: 04-04-2024 End: 84-68-7820Neigtgc encounter procedureArthur William PA-C Work Phone: [facility] [address] Physician Group-[facility] Work Phone: Start: 21-74-1017Nfa-patient / Non-visitArthur William PA-C Work Phone: [facility] [address] [facility] Physician Group-[facility] [employer] Work Phone: Start: 03-28-2024 End: 41-93-5807rgteerlybgHXSCVR H TIMMISNot AvailableStart: 03-28-2024 End: 01-36-9248Jexrsc outpatient visit 25 minutesChuck Cope MD Work Phone: noms CI ENTComment on above:Chronic frontal sinusitis (Primary Dx)Start: 03-08-2024 End: 79-32-5157Uzgvpj flowsheetChuck Cope MD Work Phone: noms CI ENTStart: 03-08-2024 End: 89-36-3712Tjjmkm Evan Cope MD Work Phone: noms CI ENTStart: 03-08-2024 End: 76-22-3654Pcruel outpatient visit 25 minutesChuck Cope MD Work Phone: noms CI ENTComment on above:Chronic sinusitis, unspecified location (Primary Dx)Start: 03-08-2024 End: 66-78-4602wjpqsvfbkxLTLUEJ H TIMMISNot AvailableStart: 74-43-1227Jwv- patient / Non-visitDO Sylvester Ball Work Phone: [facility] [address] Physician Group-[facility] Work Phone: Start: 03-01-2024 End: 37-38-9759nwcfyiakpmZL Sylvester Ball Work Phone: [facility] Work Phone: Start: 03-01-2024 End: 96-43-4065Psmsdzv encounter procedureDO Sylvester Ball Work Phone: [facility] [address] [facility] Physician Group-[facility] Work Phone: Start: 02-08-2024 End: 12-47-4182Jkdawdf encounter procedureDO Sylvester Ball Work Phone: [facility] [address] Physician Group-[facility] Work Phone: start: 02-08-2024 End: 91-05-6096sjfebxtdwhQL Sylvester Jacob Work Phone: [facility] Work Phone: Start: 01-18-2024 End: 84-96-2212Tyxfwpvdvr hospital visit by physicianEna Ames Echo/Vasc [facility] 2[facility] HospitalComment on above:Mitral valve insufficiency, unspecified etiologyStart: 01-06-2024 End: 69-58-1954Cgzviyfos encounterReenoc Mart RN Work Phone: Hematology/OncologyComment on above:Radiology MammogramStart: 01-05-2024 End: 93-30-5670vvbtefwelwQV Sylvester Jacob Work Phone: [facility] Work Phone: Start: 01-05-2024 End: 50-82-1226Gwrtgpo encounter procedureDO Sylvester Jacob Work Phone: [facility] [address] Physician Group-[facility] Work Phone: Start: 88-84-9771Dye-patient / Non-visitDO Sylvester Jacob Work Phone: [employer] Physician Group-[facility] Work Phone: Start: 12-21-2023 End: 86-63-3018Nuppadjgh to same day surgery centerDO Sylvester Jacob Work Phone: [facility]-Dig[facility] Work Phone: Start: 12-21-2023 End: 82-73-9585dngaldsbohYR Sylvester Jacob Work Phone: [facility] Work Phone: Start: 12-13-2023 End: 36-88-6420ipbynyttmfYI Sylvester Jacob Work Phone: [facility] Work Phone: Start: 12-13-2023 End: 94-80-9934Rgxwoyq encounter procedureDO Sylvester Jacob Work Phone: [facility] [address] Physician Group-[facility] Work Phone: Start: 11-24-2023 End: 44-54-6472xzkeaxffisIL Sylvester Jacob Work Phone: [facility] Work Phone: Start: 11-24-2023 End: 82-46-4579Hpwagqz encounter procedureDO Sylvester Jacob Work Phone: [facility] Work Phone: Start: 11-01-2023 End: 31-78-1805zzzthjoewaOW [facility] Work Phone: [facility] Work Phone: Start: 11-01-2023 End: 17-77-3169Yehippy encounter procedureDO Sylvester Jacob Work Phone: [employer] [facility] Work Phone: Start: 10-19-2023 End: 44-53-3475pneapqmrxbMA Sylvester Jacob Work Phone: [facility] Work Phone: Start: 10-19-2023 End: 57-11-6953Knxoksz encounter procedureDO Sylvester Jacob Work Phone: [employer] [facility] Work Phone: start: 09-22-2023 End: 60-87-5746sarwwqvtzcLL Sylvester Jacob Work Phone: [facility] Work Phone: Start: 09-22-2023 End: 65-45-5360Lbuyspv encounter procedureDO Sylvester Jacob Work Phone: [facility] [facility] Work Phone: Start: 95-14-8105Kor-patient / Non-visitDO Sylvester Jacob Work Phone: [place] [facility] [employer] Work Phone: Start: 09-14-2023 End: 02-42-1858Mayvupr encounter procedureDO Sylvester Jacob Work Phone: [facility] Work Phone: Start: 31-11-9316Lip-patient / Non-visitDO Sylvester Jacob Work Phone: [facility] [address] [facility] Physician Group-[facility] Work Phone: Start: 09-07-2023 End: 53-26-0928Cjplnqhlr to same day surgery centerDO Sylvester Jacob Work Phone: [facility] Work Phone: Start: 09-07-2023 End: 38-90-2371iqnovrhefgHY Sylvester Jacob Work Phone: [facility] Work Phone: Start: 08-11-2023 End: 69-63-0168honppgbclaVID [facility] Work Phone: Start: 08-11-2023 End: 94-53-7190Lcznhip encounter procedureCounts Include [address] [facility] Physician Group-[facility] Pain Management [facility] Work Phone: Start: 53-98-1785Png-patient / Non-visitCounts Include [address] [facility] Physician Group-[facility] [employer] Work Phone: Start: 07-20-2023 End: 65-67-1723erjjmcfgzxQAN [facility] Work Phone: Start: 07-20-2023 End: 03-43-2696Sagalhe encounter procedureCounts Include [address] [facility] Physician Group-[facility] Neurosurgery Work Phone: start: 07-15-2023 End: 88-54-0902Fnkunb outpatient visit 25 minutesBryce Hendrickson MD Work Phone: uh [facility] on above:Mitral valve insufficiency, unspecified etiology; Essential hypertension; Left ventricular systolic dysfunction; BMI 29.0-29.9,adult; Never smoked tobaccoStart: 95-23-1413Nor-patient / Non-visitCounts Include [address] [facility] Physician GroupSkagit Regional Health Professional [facility] Work Phone: Start: 06-22-2023 End: 42-65-9593pneojtimczAzvmv R Murphy MD Work Phone: Hematology/OncologyComment on above:Malignant neoplasm of upper-outer quadrant of left breast in female, estrogen receptor negative (HCC) (HCC) (Primary Dx); 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)Start: 06-22-2023 End: 22-14-9718Yzfjoau encounter Manjinder Mercado MD Work Phone: SANDUSKYStart: 72-60-1914Snv-patient / Non-visit Counts Include [address] [facility] Physician [facility] [employer] Work Phone: Start: 06-21-2023 End: 16-94-2425xszfugjtbiUKEagle Jacob Work Phone: [facility] Work Phone: Start: 06-21-2023 End: 17-96-5952Nlpwtva encounter procedureDO Sylvester Jacob Work Phone: [facility] [address] Physician [facility] Neurosurgery Work Phone: start: 06-08-2023 End: 07-15-8223rpsjyfznbrNunvixif Ball Other [employer] Other Start: 98-25-2694Rvpeqoabs encounterBereal JacobGene [facility] ClinicStart: 05-26-2023 End: 43-39-5975rvzdteqscfXsbzwjh Springer Other [employer] Other start: 13-33-0140Hvkrla follow up visit related to original pxJessica KalyanSkyline Medical Center[facility] NeurosurgeryStart: 05-26-2023 End: 88-26-6579Qqpskcm encounter procedureDO Sylvester Jacob Work Phone: [facility] Work Phone: Start: 05-26-2023 End: 61-26-4034Whfcnnk encounter procedureDO Sylvester Jacob Work Phone: [facility]-Start: 05-07-2023 End: 91-64-7718qzyeumjgatUkbjgwgy Ball Other [employer] Other Start: 91-35-4038Eixqts outpatient visit 15 minutes Sylvester NidiaFPG [facility] ClinicStart: 47-60-7742Bqhfuep encounter procedure DO Sylvester Jacob Work Phone: [facility]-Start: 04-29-2023 End: 03-31-0145jyxzakfmdlVdhtdwht Ball Other [facility] [employer] Other Start: 09-96-3811Riazuo outpatient visit 25 minutes Sylvester NidiaFPG [facility] ClinicStart: 33-67-2447Kuzumqogo encounterBenjamin BallFPG [facility] ClinicStart: 04-29-2023 End: 42-34-4228Haajukm encounter procedureDO Sylvester Jacob Work Phone: [facility] Work Phone: Start: 04-27-2023 End: 42-09-1879stqbtubbopIrgx Moreau Other [facility] [employer] Other start: 67-89-0030Dzrmps follow up visit related to original pxDale BraunSkyline Medical Center[facility] NeurosurgeryStart: 04-27-2023 End: 29-82-6203Tdssikd encounter procedureDO Sylvester Jacob Work Phone: [facility] Work Phone: start: 04-23-2023 End: 44-40-5989qfzjnfpzseFkyojjdl Ball Other [employer] Other Start: 22-40-1559Otynkqgia encounterBenjamin BallFPG [facility] ClinicStart: 81-58-1469gpywalgwkwZFIXSNU PROVIDER [facility]Start: 04-15-2023 End: 51-92-8015Wbuedhuret and management of inpatientDO Sylvester Jacob Work Phone: [facility] Work Phone: Start: 04-13-2023 End: 82-93-6110Ivwtwmvau to same day surgery centerDO Sylvester Jacob Work Phone: [facility] CampusStart: 04-09-2023 End: 51-45-6592Nyifhuezw to same day surgery centerDO Sylvester Jacob Work Phone: [facility] HospitalStart: 04-09-2023 End: 89-91-1914vtimerzbvxJM Benjamin Ball Work Phone: [facility] Work Phone: Start: 03-26-2023 End: 16-07-8457Rjdetsy encounter procedureDO Sylvester Jacob Work Phone: [facility]-Pre-Surgical Testing Work Phone: Start: 03-23-2023 End: 28-47-8855tngzkjdqfiRhpwcmec Nidia Other [employer] Other Start: 21-91-1962Tvkbyzdmp encounterBenjamin Amado [facility] ClinicStart: 03-18-2023 End: 23-99-4373ovurgrwyioLfkzko Lizzeth Other [employer] Other Start: 95-49-9577Ayxohyfqm encounterMarcia BraunWILLIAM [facility] ClinicStart: 03-18-2023 End: 04-48-8855Xbbqln outpatient visit 25 minutesBryce Hendrickson MD Work Phone: uh [facility]orthwest rural health networkComment on above:Mitral valve insufficiency, unspecified etiology (Primary Dx); Essential hypertension; Overweight with body mass index (BMI) of 29 to 29.9 in adult; Edema, unspecified type; Left ventricular systolic dysfunctionStart: 52-96-7624Uvlhornqk for gynecological examination (general) (routine) without abnormal findingsAlfredomartín Jacob Medical ClinicStart: 96-81-7276Ccmuym outpatient visit 25 minutes Radha [facility] ClinicStart: 75-73-5986Zyaexvssh encounterDale Mariel [facility] NeurosurgeryStart: 03-10-2023 End: 05-29-3138isrbkkglwdWKEagle Jacob Work Phone: [employer] Other start: 03-10-2023 End: 79-30-4176Ujehbrve ReferredDO Sylvester Jacob Work Phone: [facility] [place] Work Phone: Start: 03-05-2023 End: 33-88-8900jgbnvdwgwnSukwtarq Ball Other [employer] Other Start: 90-55-1410Jxizrurts encounterBenhaseeb [facility] Medical ClinicStart: 03-04-2023 End: 88-92-7360skcphslkrpIfnlyvyb Ball Other [employer] Other Start: 89-81-8974Sblpjtcog encounterBenhaseeb [facility] ClinicStart: 03-02-2023 End: 19-32-4070Ruaxsj outpatient visit 25 minutesBryce Hendrickson MD Work Phone: [facility] TroyComment on above:Mitral valve insufficiency, unspecified etiology; Essential hypertension; Edema, unspecified type; LBBB (left bundle branch block)Start: 03-01-2023 End: 75-10-6237yoakscnfkpSkbgjlcy Ball Other [employer] Other Start: 99-58-4250Ogtlczsds encounterBenhaseeb [facility] Medical ClinicStart: 02-25-2023 End: 95-64-4205scopodjckuShit Moreau Other [employer] Other start: 77-46-9836Vzskeo outpatient visit 40 minutes Devin Floyd [facility] NeurosurgeryStart: 02-22-2023 End: 65-95-7735vlzdcbozcuDpythadv Ball Other [facility] [employer] Other Start: 27-47-2599Bhjvrlk evaluation of patient and reportBereal [facility] Medical ClinicStart: 44-43-4994Pnmxyihmj encounter Sylvester [facility] ClinicStart: 02-15-2023 End: 51-79-4605clyduhlwjbLA Sylvester Jacob Work Phone: [facility] Work Phone: Start: 02-15-2023 End: 59-44-4537Qvrmszg encounter procedureDO Sylvester Jacob Work Phone: [facility] [place] Work Phone: Start: 02-09-2023 End: 84-02-6771uijgqahjciSrtzriij Ball Other [facility] [employer] Other Start: 40-80-0539Ibilzfayf encounterBereal [facility] Medical ClinicStart: 02-01-2023 End: 93-78-1451mszoumeqgrDczf Moreau Other [facility] [employer] Other start: 63-29-5022Riuiauijj encounterDale Mariel [facility] ClinicStart: 01-28-2023 End: 41-69-6749zjkjntunqkAW Sylvester Jacob Work Phone: [facility] Work Phone: Start: 01-28-2023 End: 63-22-4382Quzuktc encounter procedureDO Sylvester Jacob Work Phone: [facility] Work Phone: Start: 20-16-6741grdmaznrsoNl. Sylvester Sampson Jacob Facility:[id number]: 01-21-2023 End: 83-30-8500yfvpwsacosWaku Moreau Other [employer] Other start: 40-62-1199Kbrowu outpatient visit 15 minutes Devin BraunG [facility] NeurosurgeryStart: 01-07-2023 End: 69-03-2598ymvvqtcvwaAvzgywni Ball Other [employer] Other Start: 54-75-4544Ulsqrrb encounter procedureBenjamin BallFPG [facility] ClinicStart: 01-05-2023 End: 51-33-6443jfeearkpxlYkrdeicv Ball Other [employer] Other Start: 04-48-0901Alyjtzeqe encounterBenjamin BallFPG [facility] ClinicStart: 10-21-2022 End: 64-61-8434yfpughbqnuHuxxzmpx Ball Other [employer] Other Start: 27-77-2683Pnaemdxgz encounterBenjamin BallFPG [facility] ClinicStart: 09-03-2022 End: 60-63-0168lcnfwmpzqyDM SYLVESTER BALLFacility:J5Ioaku: 08-18-2022 End: 63-43-5781cfjidcnwtvRQ SYLVESTER BALLFacility:J2Lxffg: 08-14-2022 End: 82-52-2117yliuvyruoiMzjpgmfy Ball Other [employer] Other Start: 83-19-1290Nhgjlzizi encounterBenjamin BallFP[facility] ClinicStart: 08-04-2022 End: 13-69-8305rnuqpixhwxDjfauppw Ball Other [employer] Other Start: 48-73-3228Hksvtfawg encounterSylvester [facility] Medical ClinicStart: 07-16-2022 End: 69-78-8887epyrvltmriPywkgfqb Ball Other [facility] [employer] Other Start: 00-28-4171Daplfg outpatient visit 15 minutes Sylvester [facility] ClinicStart: 06-23-2022 End: 47-26-2538fxzbhkynoiMcez Braun Other [facility] [employer] Other start: 58-89-7527Bbglcs follow up visit related to original pxDalela MoreauSkyline Medical Center[facility] NeurosurgeryStart: 20-82-3646Hmwsh Update Sylvester Jacob Work Phone: [phone]-Cpeot [facility] DO Work Phone: Start: 09-83-8567Veeukkk encounter procedureBereal Jacob Work Phone: [phone]-Sxkca [facility] [place] Work Phone: Start: 86-71-2808biqpqshuzyXzRadha Sylvester Jacob Facility:[id number]: 05-22-2022 End: 77-33-7985qjfoelclltIytskflk Ball Other [facility] [employer] Other Start: 73-95-6768Feinrje evaluation of patient and reportBereal [facility] Medical ClinicStart: 05-19-2022 End: 13-68-1399lqiimrgpobMukvi R Murphy MD Work Phone: Hematology/OncologyComment on above:Malignant neoplasm of upper-outer quadrant of left breast in female, estrogen receptor negative (HCC) (Primary Dx)Start: 05-19-2022 End: 42-05-3798Xuseqzd encounter Manjinder Mercado MD Work Phone: SANDUSKYStart: 05-14-2022 End: 97-62-3149gumnxnerfdKxqrjqf Springer Other [employer] Other start: 90-29-5608Kxlwua follow up visit related to original pxYaminiica KalyanSkyline Medical Center[facility] NeurosurgeryStart: 66-31-1082Etipav outpatient visit 25 minutesBenhaseeb Galo Jacob Work Phone: [phone]-Dhbxb [facility] [address] DO Work Phone: Start: 05-12-2022 End: 85-93-2433eptmdifaruUafjuket Edward BallFacility:[id number]: 05-12-2022 End: 78-40-7608Papllia encounter procedureDO Sylvester Jacob Work Phone: [facility] Work Phone: Start: 05-11-2022 End: 64-67-3731bwzctcslcaCIFlor JACOBFacility:J6Odddd: 05-07-2022 End: 92-64-8395kilrlrdrveZyegjgng Ball Other [facility] [employer] Other Start: 76-70-8579Wizsfkzjo encounterBeantoninahaseeb JacobHazel Hawkins Memorial HospitalyStart: 93-74-5009UekugjSmlct R Murphy MD Work Phone: Hematology/OncologyComment on above:Refill Request Start: 04-14-2022 End: 92-01-3860hjbujuoudhHtho Braun Other [employer] Other start: 85-98-6602Vmvfji follow up visit related to original pxDale [facility] NeurosurgeryStart: 04-11-2022 End: 57-51-3577zjpfgjzzdwDJ STEPHEN G REINECKFacility:E2Rtmqu: 03-30-2022 End: 67-66-1143Efwwlqgcr to same day surgery [facility] [facility]: [facility] End: 96-84-9830znleejcwjqMN Sylvester Jacob Work Phone: [employer] Other start: 03-27-2022 End: 87-09-0680Kydmaxf encounter procedureDO Sylvester Jacob Work Phone: [facility] Lle-Pgz-Yefauvhk Testing Start: 03-16-2022(DME) DMEDale BraunKettering Health [facility] Campus CtrStart: 03-16-2022 End: 26-07-4492ssvxykeiscGT Sylvester Jacob Work Phone: [facility] Work Phone: Start: 03-16-2022 End: 34-16-2701Bfmcsik encounter procedureDO Sylvester Jacob Work Phone: [facility] Fvi-Umg-Serezfib Testing Start: 37-36-2127Uoqbcf outpatient visit 25 minutesBenaranzakaroline Rosenthal Ball Work Phone: [phone]-Qkspf [facility] [address] DO Work Phone: Start: 09-51-3532fqjfutsvhyWlhzrxba Sampson Jacob Facility:[id number]: 02-09-2022(Procedure) ShortThomas FelterErie [facility] CenterStart: 02-09-2022 End: 35-45-7719qbfbjwfqeoLkmfer Felter Other [employer] Other Start: 02-05-2022 End: 28-47-2521ezopvwnmfqTS EVELIN V WESTFacility:R4Kskdv: 01-26-2022 End: 10-25-8370mumbormgrwSbltbx Felter Other [employer] Other Start: 46-03-0593Hdjsjfrts encounterThomas FelterJUAN CARLOSGene [place] OrthopedicsStart: 01-20-2022 End: 31-25-6324qyvvqllrtzQjga Braun Other [employer] Other start: 97-38-9938Vvmzdo outpatient visit 15 minutes Devin [facility]auSk[facility] NeurosurgeryStart: 62-07-8340Qmvkk health examination Sylvester Jacob Other noSaper[employer] Other Start: 01-09-2022 End: 86-37-4554synlvtzdfxNI TAMY Karuna MCDANIELERFacility:C8Wbmqo: 12-30-2021 End: 12-39-0822tcuzgiurlaKrgn Braun Other noSaper[employer] Other start: 96-14-5642Sincew follow up visit related to original pxDale LizzethSkyline Medical Center-[facility] NeurosurgeryStart: 12-29-2021 End: 98-23-2486Obyrpvg encounter procedureDO Sylvester Jacob Work Phone: [facility] CampusStart: 11-04-2021 End: 75-17-3036szmbcwhoerHhxb Braun Other noSaperion Other start: 38-62-5603Xrimqi follow up visit related to original pxDale LizzethSkyline Medical Center[facility] NeurosurgeryStart: 10-08-2021 End: 40-93-3425Uduymhyuk to same day surgery centerDO Sylvester Jacob Work Phone: [facility] [facility] HospitalStart: 10-08-2021 End: 64-04-8605gzlvzompokHyrm Braun Other noSaperion Other start: 10-06-2021 End: 97-59-0708Yiquarl encounter procedureDO Sylvester Jacob [employer] Phone: [facility]-Pre-Surgical Testing Start: 09-24-2021 End: 63-42-1802Srodwbt encounter procedureDO Sylvester Jacob [employer] Phone: [facility] Start: 08-07-2021 End: 23-78-9274cmeudlstkcCpon Braun Other north [employer] Other start: 88-89-4864Uaggoo outpatient visit 40 minutes Devin Floyd [facility] NeurosurgeryStart: 07-08-2021 End: 92-85-2526Waflvgj encounter procedureDO Sylvester Jacob Work Phone: [facility]-XRay Main CampusStart: 56-20-6651Dwm-procedure evaluation checkSylvester Jacob Other [place] [employer] Other Start: 56-05-5888Vlnncvr encounterBRYCE HENDRICKSON Facility:[id number] Procedures DateProcedureProcedure DetailPerforming ClinicianStart: 42-13-9494Qmld transthorc r-t 2d w/wo m-mode rec f-up/lmtNikolas Hendrickson MD Work Phone: Start: 41-89-7322Kwgyd shoulder complete minimum 2 viewsMatthew Brian PEREZ Work Phone: Start: 09-26-5492Ulnffkbl screenJosh SosaComment on above:Order Comment: Transfuse now? Y Number of units to transfuse now? 1Result Comment: PERFORMED BY:[address] [address] [place], [place] [phone] MEDICAL DIRECTORCARLOS VÁZQUEZ M.D.Start: 83-72-7152Ovysyysd Cullen SosaComemelia on above:Order Comment: Transfuse now? Y Number of units to transfuse now? 2Result Comment: PERFORMED BY:[address] [address] [place] [phone] MEDICAL DIRECTORCARLOS VÁZQUEZ M.D.Start: 84-55-2766Ezfixhvfe for occult blood in fecesBereal Jacob DO Work Phone: Start: 25-78-1784Lvffe chest X-rayBereal Jacob DO Work Phone: Start: 54-64-5118TP of abdomen and pelvis without contrastBenjamin Ball DO Work Phone: Start: 00-36-3906FQ of head without contrastBenjamin Ball DO Work Phone: Start: 41-87-0423Snkfp foot complete minimum 3 views Tamy Khan DPM Work Phone: Start: 96-01-3334Fdvit radiography of pelvisArthur William PA-C Work Phone: Start: 41-25-0706E-ray of left knee, three viewsArthur William PA-C Work Phone: Start: 12-51-2560Cztfperuwozpbfh of bilateral kidneys Romel William PA-C Work Phone: Start: 09-82-9471WD cervical spine without contrast Romel William PA-C Work Phone: start: 46-55-6836QU of head without contrastArthur William PA-C Work Phone: Start: 57-65-8925Invmk X-ray of bilateral tibia and bilateral fibulaArthur William PA-C Work Phone: start: 33-66-0024Y-ray of left knee, two viewsArthur William PA-C Work Phone: Start: 67-39-1766Vzylmnmiupyb ophthalmic imaging optic nerveAllen Encarnacion DO Work Phone: Start: 05-29-2024 End: 83-40-2820Sbnmr medical xm&eval comprhnsv estab pt 1/>Primary open angle glaucoma (POAG) of both eyes, mild stage (CMS/HCC)Allen Encarnacion DO Work Phone: comment on above:Primary open angle glaucoma (POAG) of both eyes, mild stage (CMS/HCC) (Primary Dx); PCO (posterior capsular opacification), bilateral; Keratoconjunctivitis sicca of both eyes not specified as Sjogren'sStart: 13-30-6549FU of head without contrastArthur William PA-C Work Phone: Start: 73-43-4663Pjoaa chest X-rayArthur [employer]Exploration Work Phone: Start: 69-03-3922K-ray of lumbar spine, two or three viewsDO [employer] Phone: start: 28-32-8148Gsnxmdxpt of local anesthetic into sacroiliac jointDO [employer] Work Phone: Start: 85-07-3770Q-ray of lumbar spine, two or three viewsDO [employer] Phone: start: 55-00-8032Cqjnjendp of local anesthetic into sacroiliac jointDO [employer] Work Phone: start: 05-22-3413O-ray of lumbar spine, two or three viewsStart: 91-97-5735R-ray of lumbar spine, two or three viewsDO [employer] Phone: Start: 55-81-0485WY Lumbar Laminectomy w/Fix Implants (Not Applicable)DO [employer] Phone: start: 07-28-0679G-ray of lumbar spine, two or three viewsDO [employer] Phone: start: 21-60-6454FPR of lumbar spine with contrastDO [employer] Phone: start: 21-42-2866X-ray of lumbar spine, six views including bending viewsDO [employer] Phone: Start: 62-13-1297Ipys energy X-ray absorptiometryDO [employer] Phone: Start: 20-62-5324C-ray of lumbar spine, four viewsDO [employer] Phone: start: 39-05-0187RN Lumbar Laminectomy w/Fix Implants (Not Applicable)DO [employer] Phone: Start: 38-40-6393Q-ray of lumbar spine, two or three viewsDO [employer] Phone: start: 45-30-1428SKMV Antigen (LFIA)DO [employer] Work Phone: Start: 45-64-9808V-ray of lumbar spine, four viewsDO [employer] Work Phone: Start: 84-37-0413Hshlcldy of lumbar intervertebral discDO [employer] Work Phone: Start: 26-89-5361K-ray of lumbar spine, single viewDO [employer] Work Phone: Start: 71-90-4011M-ray of lumbar spine, six views including bending viewsDO [employer] Phone: Start: 17-95-5981Iwautpef screenComment on above: Performed By: #### [id number] ####[address] [phone]: 02-07-5640Yednzvzwd for malignant neoplasm of colon [employer] Other Start: 07-97-7921Juumflhjiqky cardiovascular examinationBenjaWhyville Other AppendectomyBenjamin E Ball Work Phone: Arthroplasty of kneeBenjamin E Ball Work Phone: Cataract surgeryBenjamin E Ball Work Phone: CholecystectomyBenjamin E Ball Work Phone: ColonoscopyBenjamin E Ball Work Phone: Depression screeningBenjamin [employer] Other HysterectomyBenjamin E Ball Work Phone: Procedure on backBenjamin E Ball Work Phone: Comment on above:10/22 03/24;Repair of musculotendinous cuff of shoulderBenjamin E Ball Work Phone: Screening for malignant neoplasm of breastBenjamin [employer] Other Plan of Treatment DateCare ActivityDetailAuthorStart: 36-14-4254Ifqpasdy ScreeningDiabetes ScreeningCrystal Clinic Orthopedic Centertart: 59-40-7789Ihmnvsua ScreeningDiabetes Screening [facility] Centertart: 55-05-2867OjarpjixzachehxaPgbcpklivszuuxKdbcsbgzxt [facility] ClevelandStart: 43-13-8464AscfkvdjltarnxdaSwgltyrandedlaGcrddvzcza [facility] ClevelandStart: 09-14-2025 End: 68-15-5222Ivslkba encounter /15/2026 10:20 AM EDT Office Visit [place] [address] [place] [address] Bryce Hendrickson MD [address] [facility] [address] [place] [address] [facility]: 38-74-8235EA Controlled (<130/80)BP Controlled (<130/80)[facility] Centertart: 14-42-0239Jeqisrpi blood countHemoglobin/HematocritCrystal Clinic Orthopedic Centertart: 43-81-0622Julelgpwzs measurementSerum CreatinineCrystal Clinic Orthopedic Centertart: 33-50-3400PUAYGBFY SCREENDIABETES SCREENCrystal Clinic Orthopedic Centertart: 03-05-2025 End: 38-44-0151Vlrxksy encounter uvsxikbzi73/03/2025 2:15 PM EST Office Visit [facility] [address] [place] [address] Allen Encarnacion DO [address] [place] [address] [facility]Start: 02-16-2025 End: 86-44-0685Vzujmov encounter pbxypzddq23/17/2025 10:45 AM EDT Appointment [facility] [address] [facility] [address] [place] [address] [facility] HospitalStart: 02-12-2025 End: 71-60-6582Sdaqeis encounter smehjwslb29/13/2025 2:45 PM EDT Office Visit [facility] [address] [place], [place] Dick Levin, ANA [address] [place] [address] Acute pain of right shoulder (Primary Dx) NOM [place] OrthopaedicsComment on above:Acute pain of right shoulder (Primary Dx)Start: 01-30-2025 End: 93-57-0374YZ Heart TransthoracicTransthoracic Echo Limited Echocardiography Routine Mitral valve insufficiency, unspecified etiology Left ventricular systolic dysfunction Expected: 01/30/2025 (Approximate), Expires: 01/30/2027[facility] Service Area Work Phone: Comment on above:Expected: 01/30/2025 (Approximate), Expires: 01/30/2027Start: 08-80-3753Zclahdkwg for osteoporosisBone Density Scan [facility]: 38-25-2391OsxrzjepbCleveland Clinic Lutheran Hospitaltart: 75-92-0260WDDXL-19 Vaccine ( season)COVID-19 Vaccine ( season)[facility] CenterStdesdemona: 12-19-2024 End: 60-28-7675Adtuerj encounter yhnbmchhc60/19/2025 9:45 AM EDT Procedure Visit [facility] [address] [place] [address] Tamy Khan DPM [address] [place] [address] [facility]IATRYStart: 12-14-2024 End: 72-00-4262Ydjxuiu encounter vnzwzuzvt27/14/2025 3:15 PM EDT Procedure Visit [facility] [address] [place] [address] Tamy Khan DPM [address] [place], [place] [address] [facility] FH PODIATRYStart: 84-53-3096RQK High Risk: (Elderly (60+) or Population) (1 - 1-dose 75+ series)RSV High Risk: (Elderly (60+) or Population) (1 - 1-dose 75+ series)[facility] CenterStart: 77-85-6460JXX Vaccine (1 - 1-dose 75+ series)RSV Vaccine (1 - 1-dose 75+ series) [facility] Centertart: 95-51-9364TitkswtogCleveland Clinic Lutheran Hospitaltart: 11-28-2024 End: 68-74-3056Qehfxat encounter prwvxerfc07/29/2025 10:45 AM EDT Office Visit [facility] [address] [place] [address] Allen Encarnacion DO [address] [place] [address] NOMS NB OPHTStart: 99-91-3379Fmosssbgvrxxqw of prophylactic treatmentCleveland Clinic Lutheran Hospitaltart: 97-70-9603Kbvnslgj admissionCleveland Clinic Lutheran Hospitaltart: 61-53-3453Zigiktsa to clinical allergistCleveland Clinic Lutheran Hospitaltart: 14-70-0793MxmuyayvrCleveland Clinic Lutheran Hospitaltart: 30-71-9816Knausgho to rehabilitation physicianCleveland Clinic Lutheran Hospitaltart: 54-82-6852GbxvhepjoCleveland Clinic Lutheran Hospitaltart: 11-11-2024 End: 68-40-2376WdnrgoupwCleveland Clinic Lutheran Hospitaltart: 14-80-5234Edfgerrat culture of sputumCleveland Clinic Lutheran Hospitaltart: 30-17-9072MwhaxkhapCleveland Clinic Lutheran Hospitaltart: 11-09-2024 End: 36-81-3939Vhpajjl encounter /10/2025 9:00 AM EDT Procedure Visit [facility] [address] [place] [address] [phone] SWS NEURStart: 20-98-4047MrahuejgvKettering Health [facility] Campus CenterStart: 11-08-2024 [facility] CenterStart: 74-77-5700Oiaysvxa to manager transport [facility] CenterStart: 28-89-1402Acuemmezqbvhn metabolic 1999 panel - Serum or PlasmaKettering Health Main Campus CenterStart: 11-07-2024 [facility] CenterStart: 11-06-2024 End: 95-13-3311Iyjwoxm encounter wpskyhrmi17/07/2025 12:00 PM EDT Procedure Visit [facility] [address] [place] [address] NOMS SWS NEURStart: 81-15-4643Znodtdxpnjpxr metabolic 1999 panel - Serum or PlasmaKettering Health Main Campus CenterStart: 95-22-8371FsvxjezxcKettering Health Main Campus CenterStart: 07-32-2083Zjookrcm to gastroenterologistCleveland Clinic Lutheran Hospitaltart: 71-36-1721Jqxkzwkqlxxap metabolic 1999 panel - Serum or [facility] CenterStart: 99-13-0309HvfbfweiuKettering Health Main Campus CenterStart: 25-88-2093Sswomrvuadudn metabolic 1999 panel - Serum or PlasmaKettering Health Main Campus CenterStart: 72-64-2072FhgjoromoKettering Health Main Campus CenterStart: 91-61-5205Rdogoujwzdldj metabolic 1999 panel - Serum or [facility] CenterStart: 11-03-2024 End: 83-72-3803GqzzxchwdCleveland Clinic Lutheran Hospitaltart: 50-73-5888TjbfsffhnKettering Health Main Campus CenterStart: 79-94-0669Imdcvjvk to nephrologistKettering Health [facility] Campus CenterStart: 92-10-0179TfzqtniqyewgYamfpwzra Regional Medical CenterStart: 94-22-8074Zclrgoyr admissionKettering Health Main Campus CenterStart: 73-45-8006Hofbypirs culture of sputumCleveland Clinic Lutheran Hospitaltart: 78-87-6168Ulgndkbi therapy procedureCleveland Clinic Lutheran Hospitaltart: 33-41-4107Omzufmdx to occupational therapistHolmes County Joel [facility] Start: 11-02-2024 End: 92-06-4699DwkhqfpnkKettering Health Main Campus CenterStart: 98-29-2159Fzlmmiidypyq consultation with patientCleveland Clinic Lutheran Hospitaltart: 10-23-2024 End: 01-21-3072Vcgzbdh encounter procedureNOMS [facility] NEURComment on above:Arrived Start: 10-17-2024 End: 15-31-7438Egmlbzb encounter rgxpqntha40/17/2025 4:00 PM EDT Office Visit [facility] [address] [place] [address] Tamy Khan DPM [address] [place] [address] NOMS PODIATRYStart: 09-28-2024 End: 31-63-7407Xmajbcg encounter /29/2025 10:15 AM EDT Office Visit [facility] [address] [place] [address] Tamy Khan DPM [address] [place] [address] ArrivedNOMS PODIATRYComment on above:ArrivedStart: 09-06-2024 End: 54-14-5765Cyypvum encounter tbkqezfvn02/07/2025 2:45 PM EDT Procedure Visit [facility] [address] [place] [address] Tamy Khan DPM [address] [place] [address] ArrivedNOMS PODIATRYComment on above:ArrivedStart: 08-28-2024 End: 21-37-7008Sksdjsa encounter pymkdlidk26/28/2025 10:15 AM EDT Procedure Visit [facility] [address] [place] [address] Marce Khan DPM [address] [place] [address] NOMS PODIATRYStart: 08-21-2024 End: 74-48-8610Xzoqol-up upyyuklrp73/21/2025 11:20 AM EDT Visit (SP) Office Hematology/Oncology [address] [place] [address] Jacob Mercado MD [address] [place] [address] 1 year follow up lab and BRM(mammo 02/14/24)Hematology/Oncology Comment on above:1 year follow up lab and BRM(mammo 02/14/24)Start: 08-21-2024 End: 98-98-0444Gyaotxe encounter iyctmmala55/21/2025 11:00 AM EDT Office Visit [facility] [address] [place] [address] 1 year follow up lab and BRMNPrinceton Community Hospital LaboratoryComment on above:1 year follow up lab and BRMStart: 07-18-2024 End: 38-60-7728Zpsabpl encounter sezrkpfeq08/18/2025 11:10 AM EDT Office Visit [facility] [address] [facility] [address] [place] [address] Chuck Cope MD [address] [facility] [address] [place] [address] NOMS CI ENTStart: 06-29-2024 End: 68-22-3442Phciryo encounter mwtiazemh62/27/2025 11:00 AM EST Office Visit [facility] [address] [facility] [address] [place] [address] Bran Linda MD [address] [facility] [address] [id number] NOMS SWS NEURStart: 94-25-1883Rgnxu radiography of pelvisXR pelvis 1-2VCleveland Clinic Lutheran Hospitaltart: 73-25-4553V-ray of left knee, three viewsXR knee LT 3V - NOT FOR ER USECleveland Clinic Lutheran Hospitaltart: 61-27-6151UW Knee - left 3 ViewsCleveland Clinic Lutheran Hospitaltart: 45-36-6840UW Pelvis 1 or 2 [facility]: 38-78-3467IL Controlled (<130/80)BP Controlled (<130/80) [facility] Centertart: 89-89-8245Ynmqlpzl blood countHemoglobin/Hematocrit [facility] Centertart: 71-13-7850Jqalqjfehg measurementSerum CreatinineCrystal Clinic Orthopedic Centertart: 06-20-2024 End: 35-45-7051Ogwpta-up qinejfmvv70/18/2025 1:45 PM EST Visit (SP) Office Hematology/Oncology [address] [place], [place] [phone] Jacob Mercado MD [address] [place] [address] 1 year follow up lab and BRMHematology/OncologyComment on above:1 year follow up lab and BRMStart: 06-20-2024 End: 48-91-8883Flalapx encounter /18/2025 1:30 PM EST Office Visit [facility] [address] [place] [address] 1 year follow up lab and BRChildren's Hospital of New Orleans LaboratoryComment on above:1 year follow up lab and BRMStart: 06-05-2024 [facility]tart: 38-07-9838Dfcbbyht to rehabilitation [facility]tart: 06-04-2024 End: 38-76-7101Erwtr metabolic 2000 panel - Serum or PlasmaBasic Metabolic Panel Lab Routine Essential hypertension Expected: 06/04/2024 (Approximate), Expires: 05/04/2025[facility] Service Area Work Phone: Comment on above:Expected: 06/04/2024 (Approximate), Expires: 05/04/2025Start: 92-61-2746Vkkyzfhr to nephrologistCleveland Clinic Lutheran Hospitaltart: 02-43-6338Pukzsgor admissionCleveland Clinic Lutheran Hospitaltart: 85-26-6609DuhowmiqxCleveland Clinic Lutheran Hospitaltart: 06-01-2024 [facility]: 05-29-2024 End: 93-99-9787Yxsnxka encounter procedureNOMS OPHTComment on above:Arrived Start: 05-16-2024 End: 90-17-5135Uedjyic encounter aywzujbmu54/14/2025 2:30 PM EST Procedure Visit [facility] [address] [place] [address] Marce Khan, ARIAS [address] [place] [address] ArrivedNOMS PODIATRYComment on above:ArrivedStart: 40-92-1051Sgtqool referralLima Memorial Hospital Work Phone: Start: 05-09-2024 End: 00-62-3452Tqyfttt encounter kcsjjptga25/07/2025 11:20 AM EST Office Visit [facility] [address] [facility] [address] [place] [address] Chuck Cope MD [address] [place] [address] NOMS CI ENTStart: 79-23-5148Supzmdm Directive DiscussionAdvance Directive DiscussionCrystal Clinic Orthopedic Centertart: 47-84-1674AfdurferqCleveland Clinic Lutheran Hospitaltart: 86-81-1751BVTQYJUZ SCREENDIABETES SCREENCrystal Clinic Orthopedic Centertart: 14-36-7016Ybtbrcor admissionHolmes County [facility] Start: 28-55-7456Mgoasvqi to nephrologistCleveland Clinic Lutheran Hospitaltart: 04-07-2024 End: 26-68-7678Yjnnjod encounter rnygajaim03/06/2024 10:30 AM EST Office Visit [facility] [address] [place] [address] Allen Encarnacion DO [address] [place] [address] NOMS NB OPHTStart: 03-28-2024 End: 36-91-0324BH Maxillofacial region WO and W contrast IVCT maxillofacial wo IV contrast Imaging Routine Chronic frontal sinusitis Expected: 03/28/2024, Expi res: 03/28/2025[facility] Work Phone: Comment on above:Expected: 03/28/2024, Expires: 03/28/2025Start: 03-24-2024 End: 26-81-2506Dvqobzu encounter ktlistoal76/22/2024 2:10 PM EST Office Visit [address] [place] [address] Bryce Hendrickson MD [address] [facility] [address] [place] [address] [facility] CenterStart: 03-08-2024 End: 59-76-5625Abbqxgx encounter wilkvehkd71/06/2024 9:20 AM EST Office Visit [facility] [address] [facility] [address] [place] [address] Chuck Cope MD [address] [facility] [address] [place] [address] ArrivedNOMS CI ENTComment on above:ArrivedStart: 87-54-3827Kzmhmnj [facility] Work Phone: Start: 24-15-1800W-ray of lumbar spine, two or three viewsXR lumbar spine 2-3V*[facility] Hospitaltart: 01-20-2024 End: 47-75-0086Aogdlmc encounter qixyrlmlu26/19/2024 10:20 AM EDT Office Visit [address] [place] [address] Bryce Hendrickson MD [address] [facility] [address] [place] [address] [facility] CenterStart: 01-10-2024 End: 34-56-0344Yqbmknl encounter lsluohwfd94/09/2024 10:45 AM EDT Appointment [facility] [address] [place] [address] [facility]: 09-08-2024Medicare Annual Wellness VisitMedicare Annual Wellness Visit (AWV)[facility]: 94-66-1618UXCXZ-19 Vaccine ( season)COVID-19 Vaccine ()[facility]: 42-66-8298VEWJM-19 Vaccine () COVID-19 Vaccine ()[facility]: 23-80-2859Rswrm-19 Vaccine ()Covid-19 Vaccine ()[facility]: 89-72-0466Jqbzx-19 Vaccine () Covid-19 Vaccine ()[facility]: 58-65-8788Kcxbz-19 Vaccine ()Covid-19 Vaccine ()[facility]: 44-75-0734Smbyqxfya vaccinationInfluenza Vaccine (#1)[facility]: 01-02-2024 End: 08-44-4435NW Heart TransthoracicTransthoracic Echo Complete Echocardiography Routine Mitral valve insufficiency, unspecified etiology Expected: 01/02/2024 (Approximate), Expires: 07/14/2025[facility] Service Area Work Phone: Comment on above:Expected: 01/02/2024 (Approximate), Expires: 07/14/2025Start: 58-07-3479NiilvureyCleveland Clinic Lutheran Hospitaltart: 46-37-9055Z-ray of lumbar spine, two or three viewsXR lumbar spine 2-3V* [facility]: 73-49-7418RibpygmpnCleveland Clinic Lutheran Hospitaltart: 47-82-4832Phtwnxi referralOhio Valley Surgical Hospital Work Phone: Start: 50-55-1562R-ray of lumbar spine, two or three viewsXR lumbar spine 2-3V*[facility]: 33-20-0229ZD Lumbar spine 2 or 3 ViewsCleveland Clinic Lutheran Hospitaltart: 07-13-2023 End: 80-69-7485Lcbknte encounter vvxmbdarh64/12/2024 10:50 AM EDT Office Visit [facility] [address] [facility] [address] [place] [address] Bryce Hendrickson MD [address] [place] [address] [facility] CenterStart: 33-90-2071BOSHX CREATININESERUM CREATININE [facility]ertart: 64-34-6097Yrnfuwb Directive DiscussionAdvance Directive DiscussionCrystal Clinic Orthopedic Centertart: 71-15-4704UjotkvgebHolmes County [facility] Start: 62-22-4460Xltjowqk admissionCleveland Clinic Lutheran Hospitaltart: 73-32-4707WfkvpgthiC[facility] Clinic Luther[facility] Hospitaltart: 95-45-9389Vwzbtinf to rehabilitation physicianCleveland Clinic Lutheran Hospitaltart: 04-13-2023 Hospital admissionC[facility] Clinic Luther[facility] Hospitaltart: 04-09-2023 End: 96-26-0697IL Lumbar Laminectomy w/Fix Implants (Not Applicable)OR Lumbar Laminectomy w/Fix Implants (Not Applicable)[facility] Start: 04-09-2023 End: 49-61-1758NehwcmpmaCleveland Clinic Lutheran Hospitaltart: 17-55-2826WILEW-19 Vaccine (5 - Pfizer series)COVID-19 Vaccine (5 - Pfizer series)[facility] CenterStart: 81-71-4431XcsjupmyxCleveland Clinic Lutheran Hospitaltart: 03-02-2023 End: 33-54-1670Qvbjk metabolic 2000 panel - Serum or PlasmaBasic Metabolic Panel Lab Routine Edema, unspecified type Expected: 03/02/2023 (Approximate), s: 03/02/2024[facility] Service Area Work Phone: Comment on above:Expected: 03/02/2023 (Approximate), Expires: 03/02/2024Start: 27-04-6278EWU, Provider: Bryce Hendrickson, Status: Pen, Time: 10:00 AMFUV, Provider: Bryce Hendrickson, Status: Pen, [facility]: 10:00 [facility] Work Phone: Start: 47-41-8252XOMS, Provider: HUI HHVI ULTRASOUND 01,[id number], Status: Pen, Time: 10:45 AMECHO, Provider: HUI HHVI ULTRASOUND 01,[id number], Status: Pen, Time: 10:45 AM-[facility] 600 DO Work Phone: Start: 68-83-3831Vgimhcmgz for osteoporosisBone Density [facility] HospitalStart: 93-15-3261KJEEMP NUC, Provider: HUI HHVI NUCLEAR 01,[id number], Status: Pen, Time: 12:00 PMSTRESS NUC, Provider: HUI HHVI NUCLEAR 01,[id number], Status: Pen, Time: 12:[address] [facility] 250 DO Work Phone: Start: 05-19-2022 End: 51-22-4262Vpxjhx Ag 27-29 [Units/volume] in Serum or PlasmaZanesville City Hospital Work Phone: Comment on above:Expected: 05/19/2022, Expires: 07/19/2022Start: 89-39-3978LWVIPXD DIRECTIVE DISCUSSIONADVANCE DIRECTIVE DISCUSSIONCrystal Clinic Orthopedic Centertart: 88-80-3464VQRPT CREATININESERUM CREATININE [facility] Centertart: 20-87-2523UlelyvekiCleveland Clinic Lutheran Hospitaltart: 95-98-3261Vrmsntknu vaccinationINFLUENZA (#1)[facility]ertart: 12-09-2021 Screening for osteoporosisBone Density [facility] Start: 95-86-7492FXXPERQNAVBU: 65+ (2 - PCV)PNEUMOCOCCAL: 65+ (2 - PCV)[facility]art: 32-26-2769KNUZI-19 VACCINE (4 - Booster for Pfizer series)COVID-19 VACCINE (4 - Booster for Pfizer series)[facility]art: 59-92-8888PURZ DENSITYBONE DENSITYCrystal Clinic Orthopedic Centertart: 64-81-2180Kmmhtnghv for osteoporosis Bone Density ScreeningCrystal Clinic Orthopedic Centertart: 74-76-6405MLiA/Tdap/Td Vaccines (1 - Tdap)DTaP/Tdap/Td Vaccines (1 - Tdap)[facility]: 85-09-9573Vwkuh microalbumin profileDTaP,Tdap,Td Vaccine (1 - Tdap)[facility]: 61-52-9295CRV High Risk: (Elderly (60+) or Population) (1 - Risk 60-74 years 1-dose series)RSV High Risk: (Elderly (60+) or Population) (1 - Risk 60-74 years 1-dose series)[facility]: 09-51-4334THG patients and/or patients aged 60+ years (1 - 1-dose 60+ series)RSV patients and/or patients aged 60+ years (1 - 1-dose 60+ series)[facility]: 65-30-1256OQA Vaccine (1 - 1-dose 60+ series)RSV Vaccine (1 - 1-dose 60+ series)[facility] Start: 12-85-9337Zocdlilgic measurementCreatinine [facility]: 47-32-1452Utuskxkon measurementPotassium [facility]: 47-55-5911BAIOAFYZZ (FIT-DNA)COLOGUARD (FIT-DNA) [facility]ertart: 07-16-1441SktfaakzubzWUSXDSOLHMFFsvhrpbzn ClinicStart: 04-43-7449XODRWGXZZL CANCER SCREENINGCOLORECTAL CANCER SCREENINGOhiohealth Van Wert Hospital Start: 89-72-0546OR COLONOGRAPHYCT COLONOGRAPHYCrystal Clinic Orthopedic Centertart: 1994 FECAL OCCULT BLOODFECAL OCCULT BLOODCrystal Clinic Orthopedic Centertart: 28-20-9123Unqvh panel Lipid ScreeningCrystal Clinic Orthopedic Centertart: 68-35-3308EFHLU SCREENLIPID SCREEN [facility]ertart: 79-01-5371Hxyduatod for malignant neoplasm of colon [facility]ertart: 93-81-0430UFMMLQSTAAMAKWOWYHWPHXHYFGUuesiaxoc Clinic Start: 40-22-6096GofpoompqseJWIBUBURBQerarujwd ClinicStart: 76-54-7104Supjcjbgc for malignant neoplasm of breastCrystal Clinic Orthopedic Centertart: 49-62-5242UXwF/Tdap/Td Vaccines (1 - Tdap)DTaP/Tdap/Td Vaccines (1 - Tdap)[facility]: 88-37-5365Etyhy microalbumin profileDTAP,TDAP,TD (1 - Tdap) [facility]ertart: 10-88-3231Doelu screening for proteinCKD: Urine Protein ScreeningNorwalk Memorial Hospital: 34-81-2563QNFHWY PCP TEAM CHRONIC DISEASE VISITANNUAL PCP TEAM CHRONIC DISEASE VISITCrystal Clinic Orthopedic Centertart: 82-92-7938Hipjoow ScreeningAnxiety ScreeningCrystal Clinic Orthopedic Centertart: 54-60-8912AE CONTROLLED (<130/80)BP CONTROLLED (<130/80)[facility]ertart: 12-07-1968 Diabetes mellitus screeningDiabetes ScreeningSouthwest General Health Center Start: 08-75-3369NQXMBHTKP C SCREENINGHEPATITIS C SCREENINGOhiohealth Van [facility]ert Hospital Start: 73-01-4804Wseeiyidr C screeningHepatitis C ScreeningUnCorey Hospital: 45-89-0768XZH Vaccines (1 of 1 - Standard series)MMR Vaccines (1 of 1 - Standard series)[facility]: 1950 Lipid panelLipid PanelUnCorey Hospital: 08-06-1950Medicare Annual Wellness VisitMedicare Annual Wellness Visit (AWV)[facility]: 07-52-0043Jczmnbccm for malignant neoplasm of colonUnTrinity Health System East CampusAnion gap measurementHolmes [facility] Comprehensive metabolic 1999 panel - Serum or [facility] HospitalComprehensive metabolic 2000 panel - Serum or [facility] End: 78-92-8808Dermqahdrs mammography computer-aided detcj uniMAM DIAGNOSTIC RT Radiology Routine Malignant neoplasm of upper-outer quadrant of left breast in female, estrogen receptor negative (HCC) 1 Occurrences starting 05/19/2022 until [facility] Work Phone: Comment on above:1 Occurrences starting 05/19/2022 until 06/18/2023EMG 2 ExtremitiesNOND Healthcare Work Phone: Comment on above:Ordered: 10/23/2024Glomerular filtration rate [Volume Rate/Area] in Serum, Plasma or Blood by Creatinine [facility] HospitalHuman papilloma virus 16+18+31+33+35+39+45+51+52+56+58+59+66+68 DNA [Presence] in Cervix by Probe with signal amplificationHolmes County Joel P[facility]rene [facility] Hospital End: 84-54-8295QE Breast - right Diagnostic for implantMAM DIAGNOSTIC RIGHT Radiology Routine Malignant neoplasm of upper-outer quadrant of left breast in female, estrogen receptor negative (HCC) (HCC) 1 Occurrences starting 06/22/2023 until 5CM[facility] Work Phone: Comment on above:1 Occurrences starting 06/22/2023 until 07/21/2024 End: 09-78-3245AP Breast - right Diagnostic for implantMAM DIAGNOSTIC RIGHT Radiology Routine Malignant neoplasm of upper-outer quadrant of left breast in female, estrogen receptor negative (HCC) 1 Occurrences starting 08/21/2024 until 6CMary[facility] Hospital Work Phone: Comment on above:1 Occurrences starting 08/21/2024 until 09/20/2025MR [facility]ervical [facility] HospitalPatient EducationKettering Health [facility] Ctr Work Phone: Patient referralKettering Health Main Campus Ctr Work Phone: End: 50-76-1269ZQ Heart TransthoracicUNM PSYCHIATRIC CENTER Service Area Work Phone: Comment on above:Once for 1 Occurrences starting 01/18/2024 until 01/18/2024XR Chest 2 [facility] - [facility] GE 3 [facility] Lumbar spine 2 or 3 [facility] Lumbar spine 2 or 3 [facility] Lumbar spine 2 or 3 [facility] CenterFirelands Regional Medical CenterFirelands Regional [facility] Center Immunizations Immunization DateImmunizationNotesCare MeolhatoIdixpyrh12-75-9013swjpaljht, high dose seasonal, preservative-freeBenjamin Ball DO Work Phone: [facility]09-22-2023Influenza, Seasonal, Quadrivalent, AdjuvantedBryce Hendrickson MD Work Phone: [facility] Work Phone: [phone] COVID-19 vaccine, Fall 2022, 12 years and older, (30mcg/0.3mL)Bryce Hendrickson MD Work Phone: [facility] Work Phone: [phone] virus vaccine, unspecified formulationTriny Mart RN Work Phone: [facility] HospitalCvewla18-20-4434algxxhpgikki conjugate vaccine, 13 valentBenjamin E Ball Work Phone: [facility] HospitalTnnbfm15-20-7148Ruviarm COVID-19 Vaccine 100 MCG/0.5ML Intramuscular SuspensionBenjamin E Ball Work Phone: [facility] HospitalDundrg06-28-7795Jzqyhy COVID-19 Vac Bivalent 30 MCG/0.3ML Intramuscular SuspensionBenjamin E Ball Work Phone: [phone]-FgphxSt. Cloud [facility] 250 DO Work Phone: [phone]-37 Pfizer (Pediatric)Sylvester Jacob Other [facility]09-14-2022Fluad Quadrivalent 0.5 ML Intramuscular Prefilled SyringeBenjamin E Ball Work Phone: [facility] HospitalYumtif85-76-0101mbztvkema nasal, unspecified formulationJacob Mercado MD Work Phone: [facility] HospitalRinegx74-96-4919qclenhawb virus vaccine, split virus (incl. purified surface antigen)Sylvester Jacob Other [facility] bLife Other 09221164-22-0529nyfezxhdo virus vaccine, unspecified formulationDO Sylvester Jacob Work Phone: [facility]09-14-2022influenza, injectable, quadrivalent, preservative Joselin Cope MD Work Phone: [facility] HospitalFwmywhypmw02-42-1784yoogbqcst, seasonal, injectableBenjamin E Nidia Work Phone: [facility] HospitalComment on above:Series:08-28-2021 Comirnaty 30 MCG/0.3ML Intramuscular SuspensionBenjamin E Ball Work Phone: [phone]-Dfiaz [facility] 250 DO Work Phone: [phone]-45 Vaccine Pfizer - Documentation Purposes OnlyDavidantoninahaseeb Jacob Other [facility]09-28-2021COVID-19 mRNA, Comirnaty (Pfizer)DO Sylvester Jacob Work Phone: [facility]09-28-2021Fluzone High-Dose Quadrivalent 0.7 ML Intramuscular Suspension Prefilled SyringeBenaranzamin Galo Jacob Work Phone: [facility] HospitalIlhkqm40-11-6458fopjnmdklszk polysaccharide vaccine, 23 valentBenjamin Galo Jacob Work Phone: [facility] HospitalHfdtqt72-69-0934MCLUA-48 mRNA, Comirnaty (Pfizer)DO Sylvester Jacob Work Phone: [facility]02-08-2021COVID-19 mRNA, Comirnaty (Pfizer)DO Sylvester Jacob Work Phone: [facility]01-25-2021zoster vaccine recombinantBenjamin E Nidia Work Phone: [facility] HospitalQdcxsa84-42-2965zejgud vaccine, liveBenhaseeb Jacob Other [facility]10-28-2020zoster vaccine recombinantBenjamin E Nidia Work Phone: [facility] HospitalOyjwkm97-57-5887kkegfi vaccine, liveBenjamin Nidia Other [facility]10-01-2020influenza, injectable, quadrivalent, preservative freeDO Sylvester Jacob Work Phone: [facility]09-30-2020influenza nasal, unspecified formulationJacob Mercado MD Work Phone: [facility] HospitalWscscs98-75-1314uljtxgfjp virus vaccine, split virus (incl. purified surface antigen)Sylvester Nidia Other [facility] [employer] Other 0869673-31-7751jhggyulgk virus vaccine, unspecified formulationDO Sylvester Jacob Work Phone: [facility]09-28-2020influenza, high dose seasonal, preservative-freeBenjamin E Nidia Work Phone: [facility] HospitalUxzfcw21-22-8117Usjdhakik, High-dose Seasonal, Quadrivalent, Preservative Joselin Cope MD Work Phone: [facility] HospitalItosryewfo17-71-2530gmqbzwlfp, injectable, quadrivalent, preservative freeBenjamin E Ball Work Phone: [facility] HospitalSiiczy36-10-6114hocconraw nasal, unspecified formulationJacob Mercado MD Work Phone: [facility] HospitalGtvddd08-69-7345xooylqhev virus vaccine, split virus (incl. purified surface antigen)Sylvester Nidia Other [place] [employer] Other 640715-70-5353kyotgdtsm virus vaccine, unspecified formulationDO Sylvester Jacob Work Phone: [facility]10-18-2018influenza, high dose seasonal, preservative-freeBenjamin E Ball Work Phone: [facility] HospitalVwjscc47-68-3874snlrusuma virus vaccine, unspecified formulationBenjamin E Ball Work Phone: [phone]-WvlylEssentia Health 600 DO Work Phone: [phone], injectable, quadrivalent, preservative freeBenjamin E Ball Work Phone: [facility] HospitalAcnyvc15-63-5515tfszjenuv, injectable, quadrivalent, preservative freeBenjamin E Ball Work Phone: [facility] HospitalVveapx20-70-2209smqhvpfiz, injectable, quadrivalent, preservative Joselin Cope MD Work Phone: [facility] HospitalWyngfnkwpv33-41-1121qxntacbituwr polysaccharide vaccine, 23 valentBenjamin E Ball Work Phone: [facility] HospitalOrnddy92-46-0159xwtdsprss, high dose seasonal, preservative-freeBenjamin E Ball Work Phone: [facility] HospitalPchebi31-02-3718zhbqnblip virus vaccine, unspecified formulationBenjamin E Ball Work Phone: [phone]-NylycEssentia Health 600 DO Work Phone: [phone]zgssottag conjugate vaccine, 13 valent Sylvester E Ball Work Phone: [facility] HospitalJgchjb55-92-2596aqcxkjggs nasal, unspecified formulationJacob Mercado MD Work Phone: [facility] HospitalSawqcc18-70-4334ozlynxqvt virus vaccine, split virus (incl. purified surface antigen)Sylvester Jaocb Other [place] [employer] Other 01700920-48-2037exnjixygw virus vaccine, unspecified formulationDO Sylvester Jacob Work Phone: [facility]01-03-2017influenza, injectable, quadrivalent, preservative freeBenjamin E Ball Work Phone: [facility] HospitalVthbbd98-25-7064voiunmvew, injectable, quadrivalent, contains preservativeBenjamin E Ball Work Phone: [facility] HospitalWypcej68-69-9583udgcjwvwe, injectable, quadrivalent, preservative Mahsa Mercado MD Work Phone: [facility] HospitalUggrwu65-42-1689pkuvvmyiv virus vaccine, unspecified formulationBenjamin E Ball Work Phone: mp703-3472PZ-GyrumChildren'S [place] 600 DO Work Phone: [phone]piu conjugate vaccine, 13 valent Sylvester Jacob Other [facility]05-16-2016 pneumococcal Conjugate, unspecified formulation; Translations: [Need for prophylactic vaccination against Streptococcus pneumoniae (pneumococcus)] Sylvester Jacob Other [place] [employer] Other 01-191397-02-8012exqynujhbcxd polysaccharide vaccine, 23 valentBenjamin E Ball Work Phone: [facility] HospitalJalfpb94-60-4858lopwihnju virus vaccine, unspecified formulationBenjamin E Ball Work Phone: mp632-6162BJ-WhvhiKim[place]ly [place] [address] DO Work Phone: [phone]xndvwzt polysaccharide vaccine, 23 valentBenjamin Ball Other [facility]10-22-2014tetanus and diphtheria toxoids, adsorbed, preservative free, for adult use (5 Lf of tetanus toxoid and 2 Lf of diphtheria toxoid)Sylvester Nidia Other [facility]10-01-2014influenza virus vaccine, unspecified formulationBenjamin E Ball Work Phone: mp333-6880EA-TobqxChildren'S [place] 530 DO Work Phone: [phone]ksz vaccine, liveJcaob Mercado MD Work Phone: [facility] HospitalRcflme44-78-2341lusbwuycgnpl polysaccharide vaccine, 23 valentBenjamin E Ball Work Phone: [facility] HospitalImwtsp19-99-0936rrrbrfeefadb polysaccharide vaccine, 23 valentBepariskaroline Jacob Work Phone: [facility] HospitalOkwnft87-41-5190upaimfocg virus vaccine, unspecified formulationJacob Mercado MD Work Phone: [facility] HospitalYgphbg64-27-4699aeokldwqfkak polysaccharide vaccine, 23 valRamila Mercado MD Work Phone: [facility] HospitalEmfinp95-20-7984wlxywxflg, high dose seasonal, preservative-freeBryce Hendrickson MD Work Phone: [facility] Work Phone: [phone]ejjufv, high dose seasonal, preservative-freeBryce Hendrickson MD Work Phone: [facility] Work Phone: [phone]obd virus vaccine, unspecified formulationBryce Hendrickson MD Work Phone: [facility] Work Phone: influenza virus vaccine, unspecified formulation Sylvester Jacob Work Phone: [phone]-IjwhxEssentia Health 600 DO Work Phone: Comment on above:[id number] Payers DatePayer CategoryPayerPolicy [id number] supplemental policy (as second payer)[employer] Member Subscriber Plan / Payer (Effective 2018-Present) Name: Renuka Owen Relation to Subscriber: Self Name: Renuka Owen Payer ID: Not on file Group ID: Not on file Type: Not on file Address: [address] [place] [id number] Health [id number] 2015Medicare 1.2.840.489245.1.13.159.2.7.3.034127.315 [id number] Health [id number]-12a1-fg5li[id number] 2.0.1.237062.3.57[id number] 2..1.650223.3.57[id number] 2..1.600802.3.579.2.43006-03-1139Dxblomf4409175 2.0.1.679394.3.579.2.49381-21-9371Ruzmmps9426571 2.0.1.552995.3.579.2.06023-66-2911Ofcpkvn8282679 2.0.1.648411.3.579.2.36590-71-0342Ndutont2232149 2.0.1.441952.3.579.2.42145-40-1141Amhmuch1747264 2..1.973117.3.579.2.71285-82-4257Vgthlrs11910680 2.0.1.502240.3.579.2.212250-20-3073Bziueog97616120 2.0.1.588670.3.579.2.475573-62-1963Xbqykpe679654914 2.16.840.1.127224.3.579.2.[id number] 2.16.840.1.559911.3.579.2.122[id number] 2.160.1.689256.3.57[id number] 2.160.1.122507.3.579.2.320397-20-8331Ppuhlve12191511 2.0.1.935745.3.579.2.283024-30-9927Akcebxp64078784 2.0.1.364396.3.579.2.626015-23-8848Ogopfft3279452 2.0.1.378167.3.579.2.656881-39-7595Nacsodk9768063 2.0.1.538927.3.579.2.916361-12-5046Pspgbet7583078 2.0.1.822339.3.579.2.270641-79-3873Ztmlxnq2953277 2.0.1.044855.3.579.2.899129-27-8628Kehrwea8938414 2.0.1.127584.3.579.2.969668-33-4589Xgguyxr1504867 2.0.1.896506.3.579.2.103009-97-3912Qcvbffm7966330 2.0.1.459873.3.579.2.482196-29-9076Nhbvoxd22122812 2.840.1.159[id number] Insurance [id number]-[id number] 1b477m0s-a1a4-8e25-21d8-57q3eq53q409Xqgbhjv09190461 2.16.840.1.612294.3.579.2.860Nogowsj85623015 2.16.840.1.748042.3.579.2.531 [id number] 2.16.840.1.089844.3.579.2.152Lhbyxfr21863582 2.16.840.1.909852.3.579.2.982Hmgkrad31024259 2.16.840.1.207304.3.579.2.531 [id number] 2.16.840.1.984792.3.579.2.059Miqkjom76657293 2.16.840.1.078537.3.579.2.531 Social History DateTypeDetailFacilityStart: 09-24-2021 End: 25-92-0375Klknxdy smoking status NHISNever smoked tobacco (finding) [facility]: 65-08-5575Fvc Assigned At BirthFemalOhioHealth Hardin Memorial Hospitaltart: 03-02-2023 End: 37-77-9806Qnz Assigned At BirthCrystal Clinic Orthopedic Centertart: 03-02-2023 End: 37-50-1243Apnnkhb useAlcohol useCrystal Clinic Orthopedic Centertart: 03-30-2012 End: 78-69-7471Vorpawi use and exposureSmokeless tobacco non-userCrystal Clinic Orthopedic Centertart: 04-08-2021 End: 66-01-7797Wbzpebx intakeCurrent drinker of alcohol (finding)[facility]ert[facility]: 04-63-3015Soehplg Commentvery Mary [facility] Hospitaltart: 60-75-2750Zao Assigned At BirthNot on fileCrystal Clinic Orthopedic Centertart: 03-02-2023 End: 11-26-8212Aeikrzu intakeNot AskedSouthwest General Health Center Work Phone: Start: 66-15-7083Qlfdwjh CommentsocialSouthwest General Health Center Work Phone: Start: 02-20-2023 End: 32-79-2654Fvymbzcg to SARS-CoV-2 (event)Not sureSouthwest General Health CenterStart: 39-44-8773Xsiwhi identityIdentifies as female gender (finding) [facility] Work Phone: Start: 03-28-2022 End: 62-66-4966Xkiyb Depression Screening Nevdwhrblt9Shxmhxtwv ClinicStart: 81-74-1285Jhdnqmt CommentrarelUniversity Hospitals Geaug[facility] Medical Center Work Phone: Start: 09-85-5473Mzmejrx Commentcaffeine intake: 2-3 cups per day of diet cokeNOMS HealthcareStart: 35-61-2932Bvdsawbxw beverage intakeEx-drinker (finding)[facility] HealthcareStart: 03-28-2022 End: 93-44-3033FugCfodlu (finding)[facility] Hospitaltart: 06-05-2024 End: 60-17-4863CSQS Follow upSDOH Follow upLima [facility] Hospital Work Phone: Medical Equipment Procedure CodeEquipment CodeEquipment Original TextEquipment IdentifierDates Rpd-Kx-V-Kind Implant - [id number]: 64-13-8564Bfavcek on above: Description: [place] CPX3 Med Height Tissue YawoznxfXyx-Aj-Z-Kind Implant - [id number]_qgyAular: 09-33-7804Bebulmx on above:Description: Natrelle Silicone Filled Breast ImplantExp Tiss 550ml Styl 7200 Med - [id number] Start: 20-13-3214Irc Brst 700ml Styl 20 Smth - [id number]: 62-53-4920Tpbvisu on above:Description: smooth round high profileSpinal fusion graft kit([id number] FDAStart: 82-35-8102Kocu- screw internal spinal fixation system, non-sterile+[id number] FDAStart: 98-79-8184Qcfq-screw internal spinal fixation system, non-sterile+[id number] FDAStart: 28-61-2609Nghbqphsb spinal fusion cage, non-sterile ()[id number] FDAStart: 57-71-3092Tqim-screw internal spinal fixation system, non-sterile+[id number] FDAStart: 51-12-4343Njvw-screw internal spinal fixation system, non-sterile+[id number] FDAStart: 03-30-2022 Spinal fusion graft kit()[id number])[id number] FDAStart: 42-39-3901Hupwxtbqf spinal fusion cage, sterile ()[id number] FDAStart: 90-73-1152Esh-Of-A-Kind Implant - [id number]: 28-67-8013Owqbunr on above:Description: Skylae Silicone Filled Breast ImplantImp Brst 375ml Styl 20 [facility] - [id number]_tpu Start: 65-18-5529Wqodwhl on above:Description: smooth round high profile Goals DatePatient GoalDesired Activity/State Functional Status GvhuIvoljxhodlDazleqXoteycjp24-90-9231Zugvfjbwxp itozuq601/[address] [place], [place] [address]3310-20-2025UnTrinity Health System East Campus Work Phone: [phone]rxbnuc dfsxsy738/UnTrinity Health System East Campus Work Phone: [phone]) [phone] signs68 01/30/2025 9:30 AM Ana Maria Mai LPNSouthwest General Health Center Work Phone: [phone] Health System East Campus Work Phone: [phone] statusPatient Not at Baseline [facility] Work Phone: [phone] statusPatient at Baseline [facility] Work Phone: [phone] statusPatient Not at Baseline [facility] Work Phone: [phone] statusPatient at Baseline [facility] Work Phone: [phone] statusPatient at Baseline [facility] Work Phone: [phone] statusPatient is Progressing Toward [facility] Work Phone: [phone] statusPatient is Progressing Toward [facility] Work Phone: [phone] statusPatient is Progressing Toward [facility] Work Phone: [phone] you deaf, or do you have serious difficulty hearingNo 06/20/2020 12:13 PM [facility] Wagner RN [facility] [facility] [id number] you blind, or do you have serious difficulty seeing, even when wearing glassesNo 06/20/2020 12:13 PM Janelle Wagner RN [facility]02-18-2021Do you have serious difficulty walking or climbing stairsNo 06/20/2020 12:13 PM Janelle Wagner RN NoCK[facility] [id number] you have difficulty dressing or bathingNo 06/20/2020 12:13 PM Janelle Wagner RN NoCKettering Health Main [id number] of a physical, mental, or emotional condition, do you have difficulty doing errands alone such as visiting a physician's office or shoppingNo 06/20/2020 12:13 PM Janelle Wagner RN No [facility] Mental Status Alle[id number] functionCognitive Status [facility] Work Phone: [phone] functionCognitive Status [facility] at [facility] Work Phone: [phone] functionCognitive Status Patient at [facility] Work Phone: [phone] functionCognitive Status [facility] at [facility] Work Phone: [phone] functionCognitive Status Patient at [facility] Work Phone: [phone] functionCognitive Status Patient at [facility] Work Phone: [phone] functionCognitive Status Patient at [facility] Work Phone: [phone] functionCognitive Status Patient at [facility] Work Phone: [phone] of a physical, mental, or emotional condition, do you have serious difficulty concentrating, remembering, or making decisionsNo 06/20/2020 12:13 PM Janelle Wagner, RN [facility] Clinical Notes 06-19-2020 to 02-12-2025 Note Date & [id number] History of Present illness Narrative* Dick Levin, ANA - 02/12/2025 2:45 PM EDT Images from the original note were not included. Orthopedic Office note: NAME: Renuka Owen : 1950 (EST PT) (LAST APPT W/ KEY) - (R) SHOULDER DISCOMFORT SINCE ~07/2019 (5 YRS, 7 MONTHS) ; FLARE UP AFTER 1-MONTH HOSPITAL STAY FOR COLITIS 10/2024 (3 MONTHS) @[facility] ; NKI XRAY TODAY, 02/12/25 IN EPIC MRI 04/29/21 IN EXA MRI 07/22/20 @[facility] MDP 03/26/21 HX (R) SA CORTISONE INJECTION [...] the month. F/U after appt with her Advanced Quality Engineer to discuss possible SA injection. Questions answered in laymen terms at the bedside. The diagnosis, home exercise plan and any ongoing restrictions/ recommendations reviewed. If unable to be reached in office, I recommend evaluation at nearest Emergency Room if any symptoms worsened or new symptoms develop for requiring urgent evaluation. Visit was preformed using [employer] Co-captain airline pilot speech recognition. documented in this encounterCedar County Memorial [id number] History of Present illness Narrative* Bryce Hendrickson MD - 01/30/2025 9:30 AM EDT HPI Patient is in the office for follow-up for history of LV systolic dysfunction with mitral regurgitation and with history of essential hypertension. She was in the hospital October 2024 at [facility] withsepsis and multiorgan failure and requiring intubation mechanical ventilation with ongoing colitis as well. During that admission she was seen by cardiology with indication of severe LV systolic dysfunction ejection fraction was down to 25%. The patient since has recovered and spent 5 weeks in long-term and now she is walking with a cane. She reports no orthopnea PND or lower extremity edema. She has no chest pain. Her examination today was remarkable for slight overweight. Cardiac sounds were normal lungs were clear. Her medical therapy was reviewed with her. She has been compliant. ASSESSMENT AND PLAN: 1. Essential hypertension, currently under control on metoprolol and lisinopril. She follows low-salt diet. 2. Chronic left bundle branch block, may be contributing to LV systolic dysfunction 3. moderate mitral rotation, follow-up echocardiogram is scheduled to reassess mitral regurgitation 4. Mild LV systolic dysfunction, echocardiogram October 2024 as inpatient and [facility] initially showed EF of 25% with slight improvement several days later but the exact number was not provided. Follow-up limited echocardiogram to assess ejection fraction is scheduled 5. Stage IIIa chronic kidney disease ROS Generalized fatigue Vitals: 01/30/25 0930 BP: 120/76 BP Location: Right arm Patient Position: Sitting Pulse: 68 Weight: 67.4 kg (148 lb 9.6 oz) Height: 1.549 m (5' 1 ) Objective [...] content normal. Judgment: Judgment normal. Allergies Penicillins, Wzselgh-hxx-yfn reductase inhibitors, and Atorvastatin Current Medications Current Outpatient Medications Medication Instructions aspirin 81 mg, Daily baclofen (Lioresal) 20 mg tablet 1 tablet, Daily PRN dapagliflozin propanediol (FARXIGA) 10 mg, Daily fluticasone (Flonase) 50 mcg/actuation nasal spray As directed furosemide (LASIX) 20 mg, 2 times daily PRN gabapentin (NEURONTIN) 300 mg, Daily lisinopril 2.5 mg, Daily loratadine (Claritin) 10 mg tablet 1 tablet, Daily metoprolol succinate XL (TOPROL-XL) 25 mg, Daily omeprazole (PRILOSEC) 20 mg, Daily before breakfast traMADol (ULTRAM) 50 mg, 2 times daily PRN Assessment/Plan 1. Mitral valve insufficiency, unspecified etiology Follow Up In Cardiology Follow Up In Cardiology Transthoracic Echo Limited 2. Left ventricular systolic dysfunction Transthoracic Echo Limited 3. Essential hypertension 4. LBBB (left bundle branch block) 5. BMI 28.0-28.9,adult 6. Never smoked tobacco Scribe Attestation By signing my name below, Pari Warner LPN , Scralberto attest that this documentation has been prepared under the direction and in the presence of Bryce Hendrickson MD. Provider Attestation - Scribe documentation All medical record entries made by the Scribe were at my direction and personally dictated by me. Marlene reviewed the chart and agree that the record accurately reflects my personal performance of the history, physical exam, discussion and plan. documented in this encounterSouth[facility] Work Phone: [phone] 554-963009-30-2025 Instructions* Patient Instructions* Pari Teague LPN - 01/30/2025 9:30 AM EDT Please bring all medicines, vitamins, and herbal supplements with you when you come to the office. Prescriptions will not be filled unless you are compliant with your follow up appointments or have a follow up appointment scheduled as per instruction of your physician. Refills should be requested at the time of your visit. BMI was above normal measurement. Current weight: 67.4 kg (148 lb 9.6 oz) Weight change since last visit (-) denotes wt loss -4.4 lbs Weight loss needed to achieve BMI 25: 16.6 Lbs Weight loss needed to achieve BMI 30: -9.8 Lbs Provided instructions on dietary changes. Limited Echo Follow up 6 months Same medications * Attachments The following attachments cannot be sent through Care Everywhere. * Body Mass Index, Adult (Salvadorean) documented in this encounterK[facility] Work Phone: [phone] 612-661907-03-2025 Evaluation note* Diagnosis Onset Date Resolution Status Admit Date Abnormal CT of the abdomen acuteJuly 2024 3:00pmAnemiaacuteJuly 2024 3:00pmChemotherapy-induced peripheral neuropathyacuteJuly 2024 3:00pmChronic back painacuteJuly 2024 3:00pmChronic kidney diseaseacuteJuly 2024 3:00pmChronic venous insufficiency of lower extremityacuteJuly 2024 3:00pmHFrEF (heart failure with reduced ejection fraction)acuteJuly 2024 3:00pmImpaired mobility and activities of daily livingacuteJuly 2024 3:00pmLeft bundle branch block acuteJuly 2024 3:00pmMitral regurgitationacuteJuly 2024 3:00pm Orthostatic hypotensionacuteJuly 2024 3:00pmPost ICU syndromeacuteJuly 2024 3:00pmAcute hypotensionresolvedJuly 2024 3:00pmAKI (acute kidney injury)resolvedJuly 2024 3:00pmAltered mental statusresolvedJuly 2024 3:00pmCandida cystitisresolvedJuly 2024 3:00pmElevated liver transaminase levelresolvedJuly 2024 3:00pmMetabolic encephalopathyresolvedJuly 2024 3:00pmPancolitisresolvedJuly 2024 3:00pmSeptic shockresolvedJuly 2024 3:00pmChronic kidney diseaseacuteJuly 2024 6:25pmHematomaacuteJuly 2024 6:25pmHFrEF (heart failure with reduced ejection fraction)acuteJuly 2024 6:25pmImpaired mobility and activities of daily livingacuteJuly 2024 6:25pmPost ICU syndromeacuteJuly 2024 6:25pmAKI (acute kidney injury) resolvedJuly 2024 6:25pmCandida cystitisresolvedJuly 2024 6:25pm Elevated liver transaminase levelresolvedJuly 2024 6:25pmMetabolic encephalopathyresolvedJuly 2024 6:25pmPancolitisresolvedJuly 2024 6:25pmSeptic shockresolvedJuly 2024 6:25pmHFrEF (heart failure with reduced ejection fraction)acuteSeptember 2024 4:07pmAcute kidney injury resolvedSeptember 2024 4:07pm [facility] Work Phone: 1([phone] 865-514007-03-2025 Evaluation note* Diagnosis Onset Date Resolution Status Admit Date Abnormal CT of the abdomen acuteJuly 2024 3:00pmAnemiaacuteJuly 2024 3:00pmChemotherapy-induced peripheral neuropathyacuteJuly 2024 3:00pmChronic back painacuteJuly 2024 3:00pmChronic kidney diseaseacuteJuly 2024 3:00pmChronic venous insufficiency of lower extremityacuteJuly 2024 3:00pmHFrEF (heart failure with reduced ejection fraction)acuteJuly 2024 3:00pmImpaired mobility and activities of daily livingacuteJuly 2024 3:00pmLeft bundle branch block acuteJuly 2024 3:00pmMitral regurgitationacuteJuly 2024 3:00pm Orthostatic hypotensionacuteJuly 2024 3:00pmPost ICU syndromeacuteJuly 2024 3:00pmAcute hypotensionresolvedJuly 2024 3:00pmAKI (acute kidney injury)resolvedJuly 2024 3:00pmAltered mental statusresolvedJuly 2024 3:00pmCandida cystitisresolvedJuly 2024 3:00pmElevated liver transaminase levelresolvedJuly 2024 3:00pmMetabolic encephalopathyresolvedJuly 2024 3:00pmPancolitisresolvedJuly 2024 3:00pmSeptic shockresolvedJuly 2024 3:00pmChronic kidney diseaseacuteJuly 2024 6:25pmHematomaacuteJuly 2024 6:25pmHFrEF (heart failure with reduced ejection fraction)acuteJuly 2024 6:25pmImpaired mobility and activities of daily livingacuteJuly 2024 6:25pmPost ICU syndromeacuteJuly 2024 6:25pmAKI (acute kidney injury) resolvedJuly 2024 6:25pmCandida cystitisresolvedJuly 2024 6:25pm Elevated liver transaminase levelresolvedJuly 2024 6:25pmMetabolic encephalopathyresolvedJuly 2024 6:25pmPancolitisresolvedJuly 2024 6:25pmSeptic shockresolvedJuly 2024 6:25pmHFrEF (heart failure with reduced ejection fraction)acuteSeptember 2024 4:07pmAcute kidney injury resolvedSeptember 2024 4:07pmAnemiaacuteSeptember 2024 11:36am Chemotherapy-induced peripheral neuropathyacuteSeptember 2024 11:36am Chronic HFrEF (heart failure with reduced ejection fraction)acuteSeptember 2024 11:36amChronic kidney diseaseacuteSeptember 2024 11:36amChronic venous insufficiency of lower extremityacuteSeptember 2024 11:36am HypertensionacuteSeptember 2024 11:36amLumbar stenosis without neurogenic claudicationacuteSeptember 2024 11:36amOpiate analgesic use agreement existsacuteSeptember 2024 11:36amUnsteady gait when walkingacuteSeptember 2024 11:36am [facility] Work Phone: 1([phone]) 245-103507-03-2025 Radiology Diagnostic study [facility]PRE[facility] [place] [address] [place] [address] CT Scan Report Signed Patient: Renuka Owen MR#: [id number] : 1950 Acct:[id number] Age/Sex: 73 / F ADM Date: 5 Loc: ER Room: Type: [facility] ER Attending Dr: Copies to: Regina Garcia DO~ Ordering Provider: Regina Garcia DO Date of Service: 11/02/24 CT/CT abdomen pelvis wo con: diffuse abd pain CT ABDOMEN AND PELVIS WITHOUT INTRAVENOUS CONTRAST: CLINICAL HISTORY: Diffuse abdominal pain COMPARISON: None TECHNIQUE: Spiral images were obtained through the abdomen and pelvis without intravenous contrast.This CT exam was performed using one or more following dose reduction techniques: Automated exposure control, adjustment of the mA and/or kV according to patient size, or use of iterative reconstruction technique. FINDINGS: Lung Bases: [Bibasilar atelectasis and or scarring. Bilateral breast implants.] Organs:Gallbladder absent. Otherwise the liver, spleen, adrenals, and pancreas are normal.[ GI: Diffuse colonic wall thickening and fat stranding greatest left worrisome for colitis. Background of mild colonic diverticulosis.[Nonvisualization appendix. No small bowel obstruction. Pelvis:[Gas within the bladder possibly related to recent instrumentation.] Hysterectomy. Peritoneum/Retroperitoneum:Aortic vascular calcifications. Aorta appears nonaneurysmal.[ Abd wall/Bones:Infiltrative appearance right upper extremity soft tissues with tiny locule of gas. There may be a fluid collection. This may represent infiltrated IV related to underlying infection. Please correlate with exam findings and history.[Postsurgical changes lower lumbar spine. CT/CT abdomen pelvis wo con IMPRESSION: Pancolitis. Abnormal appearance right upper extremity noted perhaps due to a be intravenous infiltration versusinfectious process. Please note there is gas identified within the upper extremities soft tissues. Correlate with exam findings. Impression dictated by: Samuel Saravia M.D. 11/02/2024 1:38 PM Dictation Location: [place] [address] Transcribed By: [facility] 11/02/24 1338 Dictated By: Samuel Saravia MD 11/02/241332 Signed By: 11/02/248 [facility] Work Phone: 1([phone]) 773-342907-03-2025 Radiology Diagnostic study notePRE[facility] [address] [place] [address] [place] [address] CT Scan Report Signed Patient: Renuka Owen MR#: [id number] : 1950 Acct:[id number] Age/Sex: 73 / F ADM Date: 5 Loc: ER Room: Type: [facility] ER Attending Dr: Copies to: Regina Garcia, DO~ Ordering Provider: Regina Garcia DO Date of Service: 11/02/24 CT/CT head/brain wo con: stroke CT BRAIN WITHOUT CONTRAST: CLINICAL HISTORY: Last known well 1500 hours, concern for stroke COMPARISON: None TECHNIQUE: Contiguous axial unenhanced images were obtained through the brain. This CT exam was performed using one or more following dose reduction techniques: Automated exposure control, adjustmentof the mA and/or kV accordingto patient size, or use of iterative reconstruction technique. FINDINGS: There is no evidence of midline shift, intra or extra-axial fluid collection, hemorrhage or CT evidence of acute large vascular distribution stroke. Intracranial vascular disease. Cataract surgery. Mild scattered paranasal sinuses. The surrounding soft tissues are normal. CT/CT head/brain wo con IMPRESSION: NO ACUTE INTRACRANIAL ABNORMALITY. Impression dictated by: Samuel Saravia M.D. 11/02/2024 1:33 PM Dictation Location: [place] [address] Transcribed By: [facility] 11/02/24 1333 Dictated By: Samuel Saravia MD 11/02/24 1331 Signed By: 11/02/24 1333 [facility] Work Phone: 1([phone] History of Present illness Narrative* Bran Linda MD - 10/23/2024 11:00 AM EDT Images from the original note were not included. Subjective Renuka Owen is a 73 y.o. female who presents for weakness and pain. History of Present Illness The patient presents with complaints of generalized weakness. She reports an exacerbation of neuropathy in her feet, which she attributes to chemotherapy received 12 years ago for breast cancer. The onset of tingling and burning sensations was noted approximately a year after the initiation of Taxol treatment. Initially, these sensations were confined to her fingertips and soles of her feet but have since progressed to her ankles. She experiences efbh-nfa-hpgttgt and burning sensations in her left heel and big toe, which are sensitive to touch. These symptoms are particularly bothersome at night, often disrupting her sleep. Her balance has been significantly affected, leading to falls in 04/2024 and 05/2024, necessitating hospitalization and a 3-week r ehabilitation program. She also reports numbness in her left toe, which is more pronounced than in her right. She does not experience any pain during the day, but it is present at night. She did not experience any burning sensation during her chemotherapy, only numbness in the sole of her foot. Shealso reports weakness and suspects carpal tunnel syndrome. She has arthritis, which causes pain at night. She has difficulty standing for extended periods and uses grab bars in the shower. She is currently on a regimen of gabapentin, administered twice daily, which she believes does not alleviate the numbness and tingling. She has recently started taking biotin once daily. Over the past 3 years, she has undergone two spinal fusions performed by Dr. Garcia, which have alleviated her pain. The first fusion was performed on the right leg and the second on the left leg. Shehas a history of stenosis in her back, which causes discomfort when standing for extended periods, forcing her to lean forward. She also reports difficulty with fine motor tasks due to weakness. She has a history of left mastectomy and radiation therapy for breast cancer, which was triple negative. She has been cancer-free for 12 years. PAST SURGICAL HISTORY: She has a history of knee replacement surgery. She has two hematomas on her shins from a fall in May. FAMILY HISTORY - Mother: Breast cancer, different type than patient's, no gene detected - Negative for hereditary breast cancer gene MEDICATIONS CURRENT MEDS: Gabapentin Oral Twice daily Biotin Oral Once daily PREVIOUS MEDS: Taxol Reason for Discontinuation: Completed chemotherapy treatment Review of Systems Const: Denies appetite change, fever, chills. Allergy: Denies medication reaction. Ocular: Denies visual acuity change. ENT: Denies hearing change. Endoc: Denies weight loss. Resp: Denies dyspnoea, wheezing. Cardiac: Denies angina, palpitations. GI: Denies nausea, vomiting. Haem: Denies bleeding. : Denies incontinence. MSK: Denies arthralgias, joint oedema. Derm: Denies rash, hair loss. Neuro: Denies ataxia, tremor. Also see HPI for elements of ROS documented therein and for details of positive findings, which shall supersede the foregoing. Objective Blood pressure 112/64, height 5' 2 , weight 156 lb. Physical Exam Cranial Nerve Examination CN XI: Shoulder shrug normal. Motor Examination Strength: Hand mottler machine feeder strength normal. Lower limb strength normal. Sensory Examination Pain and Temperature: Decreased sensation to pain in fingers compared to arm. Cold sensation decreased in fingers compared to arm. Light Touch, Vibration and Proprioception: Vibration sensation intact in upper and lower extremities. GENERAL EXAMINATION Appearance: in no acute distress, well developed, well nourished. Head: normocephalic, atraumatic. Eyes: pupils equal, round, reactive to light and accommodation. Ears: normal. Mouth: mucosa moist. Throat: clear. Neck: neck supple, full range of motion, no cervical lymphadenopathy. Skin: no suspicious lesions, warm and dry. Heart: no murmurs, regular rate and rhythm, S1, S2 normal. Lungs: clear to auscultation bilaterally. Abdomen: normal, bowel sounds present, soft, nontender, nondistended. Extremities: no clubbing, cyanosis, or edema. NEUROLOGICAL EXAMINATION Mental Status: The patient is alert and oriented to person, place, and time. Except as noted, thought content, form, and comprehension was normal. Phonation, articulation, resonance, and prosody are normal. Cranial Nerves: Pupils were 4.0 millimeters, equal, round, and reactive to light and accommodation,both directly and consensually. Visual yu were full by confrontation. There was no ptosis; extra-ocular movements were full; and there was no nystagmus. Funduscopic exam is normal. Masseters are of normal strength. Facial movement is normal. Hearing is grossly intact. There is no dysarthria. The gag reflex is equal bilaterally. Sternocleidomastoids and trapezii are of normal strength. The tongue protrudes in the midline. Motor: Muscle testing was performed in all four extremities, including at least mottler machine feeder, finger abductors, biceps, triceps, deltoid, toe flexors and extensors, tibialis anterior, triceps surae, quadriceps femoris, biceps femoris, and iliopsoases. Tone is normal. Muscle bulk is normal. Fasciculations are not seen . Pronator drift was not evident. Sensory: Decreased sensation to touch, temperature, and vibration was abnormal in the arms, legs and not the face. Romberg is positive. Reflexes: Biceps, triceps, brachioradialis are 1/4 bilaterally. Patellar and Achilles reflexes are 0/4 bilaterally. Plantar responses were flexor bilaterally. Coordination: Dysmetria and dysdiadochokinesia are absent. Tremor is absent; dystonia is absent; chorea is absent. Gait And Station: Station and gait are normal. Apraxia and spasticity are not evident. Arm swing isnormal. Toe, heel, and tandem walking are performed without difficulty. Musculoskeletal: Trigger-point tenderness was absent. There is no spasm of the trapezii or paraspinals. Gait and Station Balance: Positive Romberg sign. Neck: Neck range of motion normal. Results Assessment & Plan 1. Generalized weakness. The patient's generalized weakness is likely multifactorial, with contributions from chemotherapy-induced neuropathy, spinal stenosis, and potential carpal tunnel syndrome. An EMG will be conducted to evaluate the nerves in her arms and legs to rule out other causes such as myopathy or pinched nerves. 2. Chemotherapy-induced neuropathy. The neuropathy appears to be affecting the larger fibers, a common occurrence post-chemotherapy. She will continue her current regimen of biotin 10,000 mcg once daily. Thiamine 100 mg once daily willbe added to her treatment plan. Pamelor will be introduced at bedtime to manage the tingling sensation and other symptoms. The effectiveness of these interventions will be monitored on a weekly basis. 3. Spinal stenosis. The patient reports significant improvement in pain following two spinal fusion surgeries. However,she still experiences pain when standing for long periods, which forces her to lean forward. She will continue to manage her symptoms with current medications and physical therapy as needed. 4. Carpal tunnel syndrome. The patient suspects carpal tunnel syndrome, especially in her left hand, which causes weakness andnocturnal pain. An EMG will be conducted to confirm the diagnosis and assess the severity. If confirmed, appropriate treatment options will be discussed. 5. I will order an electromyograph evaluation of the upper extremities to assess for nerve damage such as cervical radiculopathy, brachial plexopathy, or entrapment mononeuropathy. 6. I will order an electromyograph evaluation of the lower extremities to assess for nerve damage such as lumbar radiculopathy, lumbar plexopathy, or peripheral neuropathy 7. I will start the patient on biotin 10 mg to be taken once or twice daily for overall nerve and brain health. 8. I will start the patient on thiamine (Vitamin B-1) 100 mg PO daily to help in both brain and nerve nutrition 9. Will start her on Pamelor 10 mg at bed for neuropathic pain. 10. I will continue the patient on Neurontin to see if it helps with alleviating neuropathic pain symptoms. Side effects such as weight gain and increase swelling of the limbs was explained. 11. I counseled the patient on the possible side effects and interactions of medications. 12. This clinical note was created utilizing [employer] documentation system. All information has been thoroughly reviewed, corrected as necessary, and authenticated by the provider to ensure accuracy and completeness. On occasion, [employer] documentation system erroneously drops words or replaces a spoken word with a similar sounding word. Please notify with any questions or concerns regarding this clinical note. documented in this encounterCedar County Memorial [id number] History of Present illness Narrative* Tamy Khan, [facility] - 09/28/2024 10:15 AM EDT Images from the original note were not included. Subjective Patient ID: Renuka Owen is a 73 y.o. female who presents for Foot Pain (Renkua Owen is a 73y.o. female requesting to be seen for BL foot pain, Right is typically worse. Pain started 12 months ago, off/on. Pain on top of foot, worse by evening. 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 Patient has taken Gabapentin for years for her foot pain. Patient is requesting xrays today. SS8). HPI Chief complaint: Bilateral midfoot pain; typically much worse on the left. Insidious onset with intermittent symptoms over the past year or so; somewhat more persistent and progressive over the past several months; particularly impacting any type of walking or physical activity. Denies pop or snap sensation. Symptoms notably aggravated with activity and generally relieved with relative rest and/or activitymodification. Admits to wearing poorly supportive Skechers footwear for activities, particularly walking at [place]. Notes swelling towards the end of the day; typically resolved by morning time. Describes a deep ache arthritic-like pain. Patient also has experienced neuropathy symptoms subsequent to chemotherapy, which appeared to be well controlled with gabapentin. There has been no specific treatment to date. Medications Current Outpatient Medications: baclofen (Lioresal) 20 MG tablet, Take 20 mg by mouth in the morning and 20 mg in the evening and 20 mg before bedtime., Disp: , Rfl: calcium carbonate (Calcium 600) 600 MG tablet, Take 600 mg by mouth in the morning and 600 mg in the evening. Take with meals., Disp: , Rfl: cetirizine (ZyrTEC) 10 MG tablet, Take 10 mg by mouth, Disp: , Rfl: cholecalciferol (Vitamin D-3) 25 MCG (1000 UT) capsule, Take 1,000 Units by mouth Daily, Disp: , Rfl: fluticasone (Cutivate) 0.05 % cream, Apply topically in the morning and before bedtime., Disp: , Rfl: fluticasone (Flonase) 50 MCG/ACT nasal spray, Administer 1 spray into each nostril Daily Shake gently. Before first use, prime pump. After use, clean tip and replace cap., Disp: , Rfl: gabapentin (Neurontin) 300 MG capsule, Take 300 mg by mouth in the morning and 300 mg in the evening and 300 mg before bedtime., Disp: , Rfl: lisinopril 5 MG tablet, Take by mouth Daily, Disp: , Rfl: metoprolol succinate XL (Toprol-XL) 25 MG 24 hr tablet, Take by mouth Do not crush or chew., Disp: , Rfl: montelukast (Singulair) 10 MG tablet, Take 1 tablet (10 mg) by mouth at bedtime, Disp: 90 tablet, Rfl: 3 omeprazole (PriLOSEC) [address] capsule, , Disp: , Rfl: torsemide (Demadex) 10 MG tablet, Take 10 mg by mouth Daily, Disp: , Rfl: traMADol (Ultram) 50 MG tablet, Take 50 mg by mouth, Disp: , Rfl: traZODone (Desyrel) 50 MG tablet, , Disp: , Rfl: Allergies Penicillins and Atorvastatin Past Surgical History Past Surgical History: Procedure Laterality Date BACK SURGERY 1982 BREAST RECONSTRUCTION 2011 Procedure:post mastectomy radiation planned;Disease:left breast cancer CATARACT EXTRACTION 10/2021 and 12/2021 CHOLECYSTECTOMY 1976 Cholelithiasis HYSTERECTOMY 1991 KNEE ARTHROPLASTY Left 01/2007 Dr. Miranda KNEE ARTHROPLASTY 01/2007 Dr. Miranda LUMBAR DISCECTOMY 10/08/2021 L4 Sx LUMBAR FUSION 04/01/2022 L4-L5 MASTECTOMY Left 2011 CT ARTHROSCOPY KNEE DIAGNOSTIC W/WO SYNOVIAL BX SPX 1994 CT ARTHROSCOPY KNEE DIAGNOSTIC W/WO SYNOVIAL BX SPX Right 1985 DR. Driver ROTATOR CUFF REPAIR Left 08/02/2017 Dr. 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 Pleasant disposition. Wearing slip-on Skechers footwear. Vascular: DORSALIS PEDIS PULSE: bilaterally, 2/4. POSTERIOR TIBIAL PULSE: bilaterally, 2/4. TEMPERATURE GRADIENT: warm to warm. EDEMA: Symmetrical, mild pitting edema bilateral ankles CAPILLARY FILLING TIME(sec): capillary fill intact bilateral digits less than 3 secs. Neurologic: SHARP SENSATION: tactile and light touch sensation intact. Dermatologic: SKIN FINDINGS: intact. Skin turgor is good. HYPERTROPHIC LESION: no forefoot or digital keratotic pressure lesions are noted. NAIL PATHOLOGY: Right great toe: TDO deformity. Left great toe: DSO/pincer toenail deformity. digits 2, 3 left foot: Toenail dystrophy and clinical mycosis, 5th digits bilateral: Toenail dystrophy and clinical mycosis. INTERDIGITAL MACERATION: clean, dry, non-inflamed. ULCER: no sign of ulceration or open wound . Ankle / Foot: FOOT: mild-moderate HAV deformity bilateral; flexible and reducible to rectus position. Mildly inflamed, non-tender, non-flexional bunion deformity, without callus formation. Focused exam left foot: Diffuse tenderness through the midfoot area, particularly Lisfranc's joint;notably sharper over the 4th metatarsal cuboid joint. Styloid process non-tender. Metatarsal shaftsnon-tender. Mild localized swelling without erythema, discoloration or warmth. Focused exam right foot: No appreciable palpable tenderness is noted. Radiology: RADIOGRAPHS: 3 views left foot: Weight-bearing: DP, oblique, lateral: 09/28/2024: Unremarkable for acute osseous or joint pathology. Unremarkable for fracture or stress fracture changes. Fairly extensive degenerative arthritic changes through Lisfranc's joint, particularly involving the 2nd and 3rdTMT joints. Arthritic changes of the navicular-cuneiform joint as well. 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 Assessment/Plan Symptomatic osteoarthritis Lisfranc's joint left foot. Acute capsulitis metatarsal-cuboid joint left foot. L4-L5 facet fusion (March 2022). Plan: Notes: Review of clinical and x-ray findings, differential diagnosis, etiology and contributing/aggravating factors, treatment strategy, rationale and objectives. Rx: Prednisone taper dose. Support strapping left foot 5-7 days. Discussed appropriate supportive footwear; referred for fitting. Discussed eventual Powerstep orthoses. Discussed use of topical agents: Salon pas patches, Biofreeze, Aspercreme, oil of frankincense etc.. Discourage any barefoot walking. Procedure: This note was created with the assistance of a speech recognition program. While intending to generate a timely document that accurately reflects the content of the visit, no guarantee can be provided that every grammatical or spelling mistake has been or will be identified or corrected. Thank you for your understanding. Tamy Khan DPM documented in this [facility]05-29-2025 Instructions* Patient Instructions* Tamy Khan DPM - 09/28/2024 10:15 AM EDT As noted documented in this [facility]05-07-2025 History of Present illness Narrative* Tamy Khan DPM - 09/06/2024 2:45 PM EDT Images from the original note were not included. Subjective Patient ID: Renuka Owen is a 73 y.o. female who presents for Toenail Care (Pt is here today requesting nail care, she was last here 05-16-2024. Her Lt hallux nail is becoming painful for her. /SS:8). HPI HPI Onychomycosis/Toenail Fungus: Presents today requesting nail care. Symptomatic toenail deformity. Location: multiple digits are problematic/symptomatic. Duration: multiple years duration. Severity of symptoms: mild-moderate, impacting her ability to wear most shoes comfortably. Onset: gradual; without known injury or trauma. Status: problematic/symptomatic over the past 1-2 months or so, impacting her ability to walk comfortably. Context: self-care is difficult, ineffective and not practical; increasing risk exposure. Family members unable to provide effective care. Characteristics: discolored , thickened , elongated , ingrowing , pressure , pain; without bleedingor drainage. Relieved by: palliative care measures have provided transient symptom relief. Previous Treatment: palliative care as noted. Risk factors: medical comorbidities. Polypharmacy. Mobility and flexibility restraints. toenail deformity. Paronychia by history. Shoe and/or digital trauma and related complications. Aggravated by: shoe gear , pressure , walking; catching and snagging on clothing etc.. Medications Current Outpatient Medications: baclofen (Lioresal) 20 MG tablet, Take 20 mg by mouth in the morning and 20 mg in the evening and 20 mg before bedtime., Disp: , Rfl: calcium carbonate (Calcium 600) 600 MG tablet, Take 600 mg by mouth in the morning and 600 mg in the evening. Take with meals., Disp: , Rfl: cetirizine (ZyrTEC) 10 MG tablet, Take 10 mg by mouth, Disp: , Rfl: cholecalciferol (Vitamin D-3) 25 MCG (1000 UT) capsule, Take 1,000 Units by mouth Daily, Disp: , Rfl: fluticasone (Cutivate) 0.05 % cream, Apply topically in the morning and before bedtime., Disp: , Rfl: fluticasone (Flonase) 50 MCG/ACT nasal spray, Administer 1 spray into each nostril Daily Shake gently. Before first use, prime pump. After use, clean tip and replace cap., Disp: , Rfl: gabapentin (Neurontin) 300 MG capsule, Take 300 mg by mouth in the morning and 300 mg in the evening and 300 mg before bedtime., Disp: , Rfl: lisinopril 5 MG tablet, Take by mouth Daily, Disp: , Rfl: metoprolol succinate XL (Toprol-XL) 25 MG 24 hr tablet, Take by mouth Do not crush or chew., Disp: , Rfl: montelukast (Singulair) 10 MG tablet, Take 1 tablet (10 mg) by mouth at bedtime, Disp: 90 tablet, Rfl: 3 omeprazole (PriLOSEC) [address] capsule, , Disp: , Rfl: torsemide (Demadex) 10 MG tablet, Take 10 mg by mouth Daily, Disp: , Rfl: traMADol (Ultram) 50 MG tablet, Take 50 mg by mouth, Disp: , Rfl: traZODone (Desyrel) 50 MG tablet, , Disp: , Rfl: Allergies Penicillins and Atorvastatin Past Surgical History Past Surgical History: Procedure Laterality Date BACK SURGERY 1982 BREAST RECONSTRUCTION 2011 Procedure:post mastectomy radiation planned;Disease:left breast cancer CATARACT EXTRACTION 10/2021 and 12/2021 CHOLECYSTECTOMY 1976 Cholelithiasis HYSTERECTOMY 1990 KNEE ARTHROPLASTY Left 01/2007 Dr. Miranda KNEE ARTHROPLASTY 01/2007 Dr. Miranda LUMBAR DISCECTOMY 10/08/2021 L4 Sx LUMBAR FUSION 04/01/2022 L4-L5 MASTECTOMY Left 2011 CT ARTHROSCOPY KNEE DIAGNOSTIC W/WO SYNOVIAL BX SPX 1994 CT ARTHROSCOPY KNEE DIAGNOSTIC W/WO SYNOVIAL BX SPX Right 1984 DR. Driver ROTATOR CUFF REPAIR Left 08/02/2017 Dr. 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 Pleasant disposition. Vascular: DORSALIS PEDIS PULSE: bilaterally, 2/4. POSTERIOR TIBIAL PULSE: bilaterally, 2/4. TEMPERATURE GRADIENT: warm to warm. EDEMA: Unremarkable for ankle edema CAPILLARY FILLING TIME(sec): capillary fill intact bilateral digits less than 3 secs. Neurologic: SHARP SENSATION: tactile and light touch sensation intact. Dermatologic: SKIN FINDINGS: intact. Skin turgor is good. HYPERTROPHIC LESION: no forefoot or digital keratotic pressure lesions are noted. NAIL PATHOLOGY: Right great toe: TDO deformity; toenail dystrophy, thickening, discoloration, mild clubbing, subtotal detachment, periungual hyperkeratosis, without drainage. Left great toe: DSO/pincer toenail deformity. digits 2, 3 left foot: Toenail dystrophy and clinical mycosis, 5th digits bilateral: Toenail dystrophy, thickening, mild clubbing, yellow discoloration, periungual hyperkeratosis, without drainage. INTERDIGITAL MACERATION: clean, dry, non-inflamed. ULCER: no sign of ulceration or open wound . Ankle / Foot: FOOT: mild-moderate HAV deformity bilateral; flexible and reducible to rectus position. Mildly inflamed, non-tender, non-flexional bunion deformity, without callus formation. Radiology: Assessment/Plan Symptomatic onychodystrophy/mycosis multiple digits as noted. Paronychia by history. L4-L5 facet fusion (March 2022). Plan: Notes: conservative and palliative care measures are preferred, understood and again indicated. There remains no interest in oral or topical therapy. Hygiene and skin care measures discussed Procedure: Toenail Debridement: Aseptic technique: power/manual instrumentation: onychodebridement length and thickness, curretage of offending crypotic margins, sugar-ungual debris, providing effective pressure and symptom relief, reducing shoe and digital trauma. This note was created with the assistance of a speech recognition program. While intending to generate a timely document that accurately reflects the content of the visit, no guarantee can be provided that every grammatical or spelling mistake has been or will be identified or corrected. Thank you for your understanding. Tamy Khan DPM documented in this [facility]05-05-2025 Evaluation note* Diagnosis Onset Date Resolution Status Admit Date Anemia acuteMay 2024 10:26amCervical spondylosis with radiculopathyacuteMay 2024 10:26amChemotherapy-induced peripheral neuropathyacuteMay 2024 10:26am Chronic HFrEF (heart failure with reduced ejection fraction)acuteMay 2024 10:26amChronic kidney diseaseacuteMay 2024 10:26amChronic venous insufficiency of lower extremityacuteMay 2024 10:26amHypertensionacuteMay 2024 10:26amLumbar stenosis without neurogenic claudicationacuteMay 2024 10:26amOpiate analgesic use agreement existsacuteMay 2024 10:26amLeft knee painnoneactiveMay 2024 10:26amAnemiaacuteMay 2024 11:34am Chemotherapy-induced peripheral neuropathyacuteMay 2024 11:34amChronic HFrEF (heart failure with reduced ejection fraction)acuteMay 2024 11:34am Chronic kidney diseaseacuteMay 2024 11:34amChronic venous insufficiency of lower extremityacuteMay 2024 11:34amHypertensionacuteMay 2024 11:34amLumbar stenosis without neurogenic claudicationacuteMay 2024 11:34amOpiate analgesic use agreement existsacuteMay 2024 11:34amRight hand weaknessacuteMay 2024 11:34amUnsteady gait when walkingacuteMay 2024 11:34amAcute hypotensionacuteJuly 2024 3:00pmAKI (acute kidney injury)acuteJuly 2024 3:00pmAltered mental statusacuteJuly 2024 3:00pm PancolitisacuteJuly 2024 3:00pm [facility] Work Phone: 1(702) 299-683005-05-2025 Evaluation note* Diagnosis Onset Date Resolution Status Admit Date Anemia acuteMay 2024 10:26amCervical spondylosis with radiculopathyacuteMay 2024 10:26amChemotherapy-induced peripheral neuropathyacuteMay 2024 10:26am Chronic HFrEF (heart failure with reduced ejection fraction)acuteMay 2024 10:26amChronic kidney diseaseacuteMay 2024 10:26amChronic venous insufficiency of lower extremityacuteMay 2024 10:26amHypertensionacuteMay 2024 10:26amLumbar stenosis without neurogenic claudicationacuteMay 2024 10:26amOpiate analgesic use agreement existsacuteMay 2024 10:26amLeft knee painnoneactiveMay 2024 10:26amAnemiaacuteMay 2024 11:34am Chemotherapy-induced peripheral neuropathyacuteMay 2024 11:34amChronic HFrEF (heart failure with reduced ejection fraction)acuteMay 2024 11:34am Chronic kidney diseaseacuteMay 2024 11:34amChronic venous insufficiency of lower extremityacuteMay 2024 11:34amHypertensionacuteMay 2024 11:34amLumbar stenosis without neurogenic claudicationacuteMay 2024 11:34amOpiate analgesic use agreement existsacuteMay 2024 11:34amRight hand weaknessacuteMay 2024 11:34amUnsteady gait when walkingacuteMay 2024 11:34amAbnormal CT of the abdomenacuteJuly 2024 3:00pmAcute hypotensionacuteJuly 2024 3:00pmAKI (acute kidney injury)acuteJuly 2024 3:00pmAltered mental statusacuteJuly 2024 3:00pmAnemiaacuteJuly 2024 3:00pmCandida cystitisacuteJuly 2024 3:00pmChemotherapy-induced peripheral neuropathyacuteJuly 2024 3:00pmChronic back painacuteJuly 2024 3:00pmChronic kidney diseaseacuteJuly 2024 3:00pmChronic venous insufficiency of lower extremityacuteJuly 2024 3:00pmElevated liver transaminase levelacuteJuly 2024 3:00pmHFrEF (heart failure with reduced ejection fraction)acuteJuly 2024 3:00pmImpaired mobility and activities of daily livingacuteJuly 2024 3:00pmLeft bundle branch blockacuteJuly 2024 3:00pmMetabolic encephalopathyacuteJuly 2024 3:00pmMitral regurgitationacuteJuly 2024 3:00pmOrthostatic hypotensionacuteJuly 2024 3:00pmPancolitisacuteJuly 2024 3:00pmPost ICU syndromeacuteJuly 2024 3:00pmSeptic shockacuteJuly 2024 3:00pm [facility] Work Phone: 1(343) 431-560105-05-2025 Evaluation note* Diagnosis Onset Date Resolution Status Admit Date Anemia acuteMay 2024 10:26amCervical spondylosis with radiculopathyacuteMay 2024 10:26amChemotherapy-induced peripheral neuropathyacuteMay 2024 10:26am Chronic HFrEF (heart failure with reduced ejection fraction)acuteMay 2024 10:26amChronic kidney diseaseacuteMay 2024 10:26amChronic venous insufficiency of lower extremityacuteMay 2024 10:26amHypertensionacuteMay 2024 10:26amLumbar stenosis without neurogenic claudicationacuteMay 2024 10:26amOpiate analgesic use agreement existsacuteMay 2024 10:26amLeft knee painnoneactiveMay 2024 10:26amAnemiaacuteMay 2024 11:34am Chemotherapy-induced peripheral neuropathyacuteMay 2024 11:34amChronic HFrEF (heart failure with reduced ejection fraction)acuteMay 2024 11:34am Chronic kidney diseaseacuteMay 2024 11:34amChronic venous insufficiency of lower extremityacuteMay 2024 11:34amHypertensionacuteMay 2024 11:34amLumbar stenosis without neurogenic claudicationacuteMay 2024 11:34amOpiate analgesic use agreement existsacuteMay 2024 11:34amRight hand weaknessacuteMay 2024 11:34amUnsteady gait when walkingacuteMay 2024 11:34amAbnormal CT of the abdomenacuteJuly 2024 3:00pmAKI (acute kidney injury)acuteJuly 2024 3:00pmAnemiaacuteJuly 2024 3:00pmCandida cystitisacuteJuly 2024 3:00pmChemotherapy-induced peripheral neuropathy acuteJuly 2024 3:00pmChronic back painacuteJuly 2024 3:00pmChronic kidney diseaseacuteJuly 2024 3:00pmChronic venous insufficiency of lower extremityacuteJuly 2024 3:00pmHFrEF (heart failure with reduced ejection fraction)acuteJuly 2024 3:00pmImpaired mobility and activities of daily livingacuteJuly 2024 3:00pmLeft bundle branch blockacuteJuly 2024 3:00pmMitral regurgitationacuteJuly 2024 3:00pmOrthostatic hypotensionacute Irma 5 3:00pmPost ICU syndromeacuteJuly 2024 3:00pmAcute hypotensionresolvedJuly 2024 3:00pmAltered mental statusresolvedJuly 2024 3:00pmElevated liver transaminase levelresolvedJuly 2024 3:00pm Metabolic encephalopathyresolvedJuly 2024 3:00pmPancolitisresolvedJuly 2024 3:00pmSeptic shockresolvedJuly 2024 3:00pmAKI (acute kidney injury) acuteJuly 2024 6:25pmCandida cystitisacuteJuly 2024 6:25pmChronic kidney diseaseacuteJuly 2024 6:25pmHematomaacuteJuly 2024 6:25pm HFrEF (heart failure with reduced ejection fraction)acuteJuly 2024 6:25pm Impaired mobility and activities of daily livingacuteJuly 2024 6:25pmPost ICU syndromeacuteJuly 2024 6:25pmElevated liver transaminase levelresolved Irma 2024 6:25pmMetabolic encephalopathyresolvedJuly 2024 6:25pm PancolitisresolvedJuly 2024 6:25pmSeptic shockresolvedJuly 2024 6:25pm [facility] Work Phone: 1(768) 557-501804-20-2025 NoteHNO ID: [id number] Author: JACOB MERCADO MD Service: ? Author Type: Physician Type: Progress Notes Filed: 08/22/2024 20:37 Note Text: PATIENT NAME: Renuka Owen DATE: 08/21/2024 PRIMARY CARE PHYSICIAN: Dr. Sylvester Jacob OTHER PHYSICIANS: Dr. Coley, Dr. Artur Sutherland, Dr. Snyder, Dr. Ortega Portions of this encounter note have been copied from the note from 06/22/2023 and has been updated where appropriate, and reflect my current medical decision making from today. CC: This is a 73 year old female with a history of breast cancer, seen for scheduled follow-up. INTERIM HISTORY: Since the patient's last visit here she apparently developed complications from her cardiac medications and was hospitalized May 2024, and subsequently spent 3 weeks in rehab. Since being home she has done well. Ankle swelling and shortness of breath have resolved. Still some fatigue but not severe. Otherwise no significant medical changes. No changes in her right breast or left breast implant. No recurrent chest pain or other signs of pleurisy. MEDICATIONS: LISINOPRIL ORAL Take by mouth. gabapentin (NEURONTIN) 300 mg capsule Take 2 capsules by mouth three times a day for 360 days. torsemide (DEMADEX) 20 mg tablet Take 1 tablet by mouth every afternoon. ALLERGY RELIEF, CETIRIZINE, 10 mg tablet traMADol (ULTRAM) 50 mg tablet every 6 hours as needed. baclofen (LIORESAL) 20 mg tablet Take 1 tablet by mouth daily at bedtime. omeprazole (PRILOSEC) 20 mg capsule Take 20 mg by mouth once daily. fluticasone (FLONASE) 50 mcg/actuation nasal spray 2 Sprays once daily. lisinopril 2.5 mg tablet Take 2.5 mg by mouth once daily. gabapentin (NEURONTIN) 300 mg capsule TAKE 1 CAPSULE BY MOUTH IN THE MORNING AND 2 CAPSULES IN THE AFTERNOON AND AT BEDTIME hydroCHLOROthiazide (HYDRODIURIL, ESIDRIX) 25 mg tablet Take 25 mg by mouth once daily. carvedilol (COREG) 6.25 mg tablet Take 6.25 mg by mouth twice daily with meals. ALLERGIES: Penicillins and Lipitor [Atorvastatin Calcium] PAST [...] HISTORY OF Left 2018 rotator cuff surgery PAST SURGICAL HISTORY OF 04/2023 spinal infusion TUBAL LIGATION, REVIEW OF SYSTEMS: General: No [...] neuropathy- See HPI. PHYSICAL EXAM: Vitals: BP 117/57 Pulse 67 Temp 36.3 ?C (97.4 ?F) (Temporal) Resp 18 Wt 74.7 kg (164 lb 10.9 oz) SpO2 99% BMI 30.11 kg/m? ECOG 1 Gen.: This is an age-appropriate patient in [...] cyst. LABORATORY DATA: Hemoglobin (g/dL) Date Value 08/21/2024 11.1 04/08/2021 13.2 Hematocrit (%) Date Value 08/21/2024 34.2 1 (more content not included)...[facility]04-20-2025 History of Present illness Narrative* Jacob Mercado MD - 08/20/2024 3:38 PM EDT PATIENT NAME: Renuka Owen DATE: 08/21/2024 PRIMARY CARE PHYSICIAN: Dr. Sylvester Jacob OTHER PHYSICIANS: Dr. Coley, Dr. Artur Sutherland, Dr. Snyder, Dr. Ortega Portions of this encounter note have been copied from the note from 06/22/2023 and has been updated where appropriate, and reflect my current medical decision making from today. CC: This is a 73 year old female with a history of breast cancer, seen for scheduled follow-up. INTERIM HISTORY: Since the patient's last visit here she apparently developed complications from her cardiac medications and was hospitalized May 2024, and subsequently spent 3 weeks in rehab. Since being home she has done well. Ankle swelling and shortness of breath have resolved. Still some fatigue but not severe. Otherwise no significant medical changes. No changes in her right breast or left breast implant. Norecurrent chest pain or other signs of pleurisy. MEDICATIONS: LISINOPRIL ORAL Take by mouth. gabapentin (NEURONTIN) 300 mg capsule Take 2 capsules by mouth three times a day for 360 days. torsemide (DEMADEX) 20 mg tablet Take 1 tablet by mouth every afternoon. ALLERGY RELIEF, CETIRIZINE, 10 mg tablet traMADol (ULTRAM) 50 mg tablet every 6 hours as needed. baclofen (LIORESAL) 20 mg tablet Take 1 tablet by mouth daily at bedtime. omeprazole (PRILOSEC) 20 mg capsule Take 20 mg by mouth once daily. fluticasone (FLONASE) 50 mcg/actuation nasal spray 2 Sprays once daily. lisinopril 2.5 mg tablet Take 2.5 mg by mouth once daily. gabapentin (NEURONTIN) 300 mg capsule TAKE 1 CAPSULE BY MOUTH IN THE MORNING AND 2 CAPSULES IN THE AFTERNOON AND AT BEDTIME hydroCHLOROthiazide (HYDRODIURIL, ESIDRIX) 25 mg tablet Take 25 mg by mouth once daily. carvedilol (COREG) 6.25 mg tablet Take 6.25 mg by mouth twice daily with meals. ALLERGIES: Penicillins and Lipitor [Atorvastatin Calcium] PAST [...] HISTORY OF Left 2018 rotator cuff surgery PAST SURGICAL HISTORY OF 04/2023 spinal infusion TUBAL LIGATION, REVIEW OF SYSTEMS: General: No [...] neuropathy- See HPI. PHYSICAL EXAM: Vitals: BP 117/57 Pulse 67 Temp 36.3 C (97.4 F) (Temporal) Resp 18 Wt 74.7 kg (164 lb 10.9 oz) SpO2 99% BMI 30.11 kg/m ECOG 1 Gen.: This is an age-appropriate patient in [...] cyst. LABORATORY DATA: Hemoglobin (g/dL) Date Value 08/21/2024 11.1 04/08/2021 13.2 Hematocrit (%) Date Value 08/21/2024 34.2 04/08/2021 41.4 WBC (k/uL) Date Value 08/21/2024 7.71 04/08/2021 7.65 Platelet Count (k/uL) Date Value 08/21/2024 328 04/08/2021 308 RADIOLOGY/OTHER STUDIES: 02/14/2024 Diagnostic right mammogram ([facility]) Benign finding. No change from comparison. Recommend routine mammogram in 12 months. 02/08/2023 Diagnostic right mammogram ([facility]) Benign finding. No change from comparison. Recommend routine mammogram in 12 months. 05/10/2022 Chest CTA ([facility]) No evidence for acute pulmonary embolism, thoracic aortic aneurysm, or aortic dissection. Mild cardiomegaly with trace 3 mm thick pericardial effusion. Mosaic attenuation of the bilateral lungs reflect sequelae of reactive airway inflammation. Moderate bilateral upper and lower lung linear scar. 04/08/2020 CT abdomen/pelvis ([facility]). 6.4 x 3.3 cm soft tissue [...] advanced left breast cancer diagnosed March 2011. ER/CT negative, HER-2 negative (triplenegative). Status post preop [...] of recurrent disease since. At this time would recommend continued routine observation to include yearly examination, surveillance right mammogram, and labs. Now that she is more than 13 years out from diagnosis she will follow-up with her PCP for further management. We did not schedule a return visit here, but would be happyto see her in the future if we can be of assistance. 2. 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 The patient was referred to [facility] colorectal surgery (Dr. Lorenzo) and underwent surgical excision on 06/19/2020. Final pathology confirmed an epidermoid cyst with negative margins. Observation recommended. She has had no evidence ofrecurrence. Will monitor clinically and reevaluate as indicated [...] consider referral to neurology for additional recommendations. Jacob Mercado MD CC: Dr. Jairo Jacob documented in this encounterOhio[facility] Evaluation note* Diagnosis Onset Date Resolution Status Admit Date Anemia acuteMarch 2024 1:18pmCervical spondylosis with radiculopathyacuteMarch 2024 1:18pmChronic HFrEF (heart failure with reduced ejection fraction) acuteMarch 2024 1:18pmChronic kidney diseaseacuteMarch 2024 1:18pm Chronic venous insufficiency of lower extremityacuteMarch 2024 1:18pm HypertensionacuteMarch 2024 1:18pmLumbar stenosis without neurogenic claudicationacuteMar 2024 1:18pmLeft knee painnoneactiveMarch 2024 1:18pmHistory of total left knee replacementacuteMarch 2024 11:07amPes anserinus bursitis of left kneeacuteMarch 2024 11:07amAnemiaacuteMay 2024 10:26amCervical spondylosis with radiculopathyacuteMay 2024 10:26am Chemotherapy-induced peripheral neuropathyacuteMay 2024 10:26amChronic HFrEF (heart failure with reduced ejection fraction)acuteMay 2024 10:26am Chronic kidney diseaseacuteMay 2024 10:26amChronic venous insufficiency of lower extremityacuteMay 2024 10:26amHypertensionacuteMay 2024 10:26am Lumbar stenosis without neurogenic claudicationacuteMay 2024 10:26amOpiate analgesic use agreement existsacutey 2024 10:26amLeft knee painnoneactive May 2024 10:26am [facility] Work Phone: 1([phone]) 358-335903-03-2025 Telephone encounter Note* Telephone Encounter - Chuck Cope MD - 07/03/2024 12:07 PM EST prn [facility] [id number] Miscellaneous Notes* Telephone Encounter - Chuck Cope MD - 07/03/2024 12:07 PM EST prn * Telephone Encounter - Megan Church - 07/03/2024 9:21 AM EST pt cld 07/03/24 to cancel 07/18 appt -did not get CT scan done and has had alot of rehab she needs to finish will call to r/s later documented in this encounterNOMS [id number] Telephone encounter Note* Telephone Encounter - Megan Church - 07/03/2024 9:21 AM EST pt cld 07/03/24 to cancel 07/18 appt -did not get CT scan done and has had alot of rehab she needs to finish will call to r[facility]s [id number] Evaluation note* Diagnosis Onset Date Resolution Status Admit Date History of total left knee replacement acuteFebruary 2024 9:30amPes anserinus bursitis of left kneeacuteFebruary 2024 9:30amAnemiaacuteMarch 2024 1:18pmCervical spondylosis with radiculopathyacuteMarch 2024 1:18pmChronic HFrEF (heart failure with reduced ejection fraction)acuteMarch 2024 1:18pmChronic kidney diseaseacute March 2024 1:18pmChronic venous insufficiency of lower extremityacuteMarch 2024 1:18pmHypertensionacuteMarch 2024 1:18pmLumbar stenosis without neurogenic claudicationacuteMarch 2024 1:18pmLeft knee painnoneactiveMarch 2024 1:18pmHistory of total left knee replacementacuteMarch 2024 11:07amPes anserinus bursitis of left kneeacuteMarch 2024 11:07amAnemia acuteMay 2024 10:26amCervical spondylosis with radiculopathyacuteMay 2024 10:26amChemotherapy-induced peripheral neuropathyacuteMay 2024 10:26am Chronic HFrEF (heart failure with reduced ejection fraction)acuteMay 2024 10:26amChronic kidney diseaseacuteMay 2024 10:26amChronic venous insufficiency of lower extremityacuteMay 2024 10:26amHypertensionacuteMay 2024 10:26amLumbar stenosis without neurogenic claudicationacuteMay 2024 10:26amOpiate analgesic use agreement existsacuteMay 2024 10:26amLeft knee painnoneactiveMay 2024 10:26am [facility] Work Phone: 1(128) 839-584102-03-2025 Consult note Author Jared Louis [facility] HospitalNote Date/TimeFebruary 2024 11:35am [place] [address] Physiatry (Rehab) Consult Note Signed Patient: Renuka Owen MR#: [id number] : 1950 Acct:[id number] Age/Sex: 73 / F Adm Date: 5 Loc: 3T Room: [address] [place] [address] Type: ADM IN Attending Dr: Landon Whitfield MD Copies to: DO Jared Jama MD Rahul Prasad, MD~ HPI Consult Date: 06/05/24 Requesting Physician: Isaiah Mejia DO Primary Care Provider: Sylvester Jacob DO Consult Narrative Reason for consult: Evaluation for inpatient rehab HPI: Ms. Owen is a 73 year old female with medical history of CKD, anemia, orthostatic hypotension, mitral regurgitation, HFrEF, HTN, cervical spondylosis who presented to the hospital after a fall and was admitted due to LATANYA. Upon admission, a CT head was performed which was negative for acute intracranial abnormality. In addition, CT cervical spine demonstrated no fracture. She was noted to have anAKI with cr 3.04/BUN 111. The patient was admitted for LATANYA on CKD management. Received IV hydrationwith improvement in renal function. I met with this patient at bedside today. She is resting in bed. She appears in no distress. She continues to report feeling week but is overall improving. She was hoping to go to [facility] in [place] but they did not have a bed available. She is now looking to possibly come to inpatient rehab. Review of Systems Review of Systems All other systems reviewed & are negative unless noted below or in HPI [facility] Medical History Chronic kidney disease Unsteady gait when walking Anemia Orthostatic hypotension Mitral regurgitation Hypertension Chronic HFrEF (heart failure with reduced ejection fraction) Occipital headache Unsteadiness on feet Cervical spondylosis with radiculopathy Neck pain Degenerative arthritis of left foot Chronic venous insufficiency of lower extremity Nocturnal leg cramps Chemotherapy-induced peripheral neuropathy Peripheral polyneuropathy Neuropathy DDD (degenerative disc disease) Incontinence urinary incontinence GERD (gastroesophageal reflux disease) Left bundle branch block Vascular access prohibited in left upper extremity Presacral mass Excision 2019 Arthritis Low back pain Osteoporosis Breast cancer left Surgical History S/P lumbar fusion (~04/2023) H/O colonoscopy (~01/2018) History of phacoemulsification of cataract of both eyes with intraocular lens implantation 2021 History of appendectomy History of hysterectomy Hx of decompressive lumbar laminectomy 2021 History of total bilateral knee replacement one month between procedures History of left mastectomy History of repair of left rotator cuff Hx of cholecystectomy Family History Mother Breast cancer Father Testicular cancer Brother Leukemia Social History Smoking Status: Never smoker Substance Use Type: None Social History Comments: mobile home Meds Medications and Allergies Allergies atorvastatin (From Lipitor) Allergy (Unknown, Verified 06/01/24 11:40) Hives levofloxacin (Levaquin) Allergy (Unknown, Verified 06/01/24 11:40) Unknown Reaction Penicillins Allergy (Verified 06/01/24 11:40) Hives Home Medications calcium 600 mg (as carbonate)-vitamin D3 10 mcg (400 unit) tablet (Calcium 600 +D(3)) 1 tab PO BID osteoporosis 09/24/21 [History Confirmed 06/01/24] melatonin 10 mg tablet 10 mg PO HS PRN Sleep 03/16/22 [History Confirmed 06/01/24] enalapril maleate 2.5 mg tablet 2.5 mg PO BID 03/26/23 [History Confirmed 06/01/24] torsemide 20 mg tablet 20 mg PO DAILY 03/26/23 [History Confirmed 06/01/24] aspirin 81 mg tablet,delayed release 81 mg PO DAILY 04/09/23 [History Confirmed 06/01/24] acetaminophen 500 mg tablet 500 mg PO Q4H PRN Pain #0 tabs 04/19/23 [Rx Confirmed 06/01/24] fluticasone propionate 50 mcg/actuation nasal spray,suspension See Rx Instructions .Route .COMPLEX #48 mL 01/09/24 [Rx Confirmed 06/01/24] omeprazole 40 mg capsule,delayed release See Rx Instructions .Route .COMPLEX #90caps 02/24/24 [Rx Confirmed 06/01/24] gabapentin 300 mg capsule 600 mg PO TID nerve pain 04/04/24 [History Confirmed 06/01/24] metolazone 2.5 mg tablet 2.5 mg PO DAILY 04/04/24 [History Confirmed 06/01/24] trazodone 50 mg tablet 50 mg PO HS 04/07/24 [History Confirmed 06/01/24] tramadol 50 mg tablet 50 mg PO Q6HR PRN pain 30 days #30 tabs 04/12/24 [Rx Confirmed 06/01/24] montelukast 10 mg tablet 10 mg PO HS 06/01/24 [History Confirmed 06/01/24] baclofen 20 mg tablet See Rx Instructions .Route .COMPLEX #90 tabs 06/02/24 [Rx Confirmed 06/03/24] carvedilol 6.25 mg tablet See Rx Instructions .Route .COMPLEX #180 tabs 06/02/24[Rx Confirmed 06/03/24] Exam Physical Exam Vital Signs: Temp Pulse Resp BP Pulse Ox O2 Del Method 98.9 F 78 14 118/74 98 Room Air 06/04/24 16:41 06/05/24 04:00 06/05/24 04:00 06/05/24 04:00 06/05/24 04:00 06/05/24 04:00 Narrative: Gen: Awake, oriented, cooperative. HEENT: Atraumatic, PERRL, EOMI Resp: No respiratory distress Cardio: Extremities well perfused MSK: Moves all extremities spontaneously Neuro: CN grossly intact Skin: No swelling, erythema, ecchymosis appreciated Psych: Mood and affect normal Results - Phys. Rehab Labs Labs: Laboratory Results - last 24 hr 06/05/24 05:54 PHA Creatinine Clear 37.03 Sodium 140 Potassium 3.4 L Chloride 107 Carbon Dioxide 23.8 Anion Gap 12.6 BUN 29 H Creatinine 1.23 H Est GFR (CKD-EPI) 46.113 Glucose 86 Calcium 8.7 Magnesium 1.7 L Assessment/Plan (1) Entxj-dy-tijncda kidney injury: (2) Unsteady gait when walking: (3) Contusion: (4) Generalized weakness: (5) Chemotherapy-induced peripheral neuropathy: (6) Impaired mobility and activities of daily living: Plan This is a 73 y/o female w/ PMH chemotherapy induced peripheral neuropathy who presents with multifactorial functional decline in the setting of an LATANYA on CKD. -Medically the patient is improving. Cr 1.23/BUN29 -Continue to have left knee pain. Imaging appears negative for acute injury -From a rehab standpoint, the patient does have functional deficits and would benefit from continued skilled therapy, particularly since she lives alone. She does not meet criteria for inpatient rehab at this time as she does not have an approved inpatient rehab diagnosis and does have medical and rehab complexity that would necessitate physician oversight. -Regarding the patients neuropathy, I would consider other alternative treatments outpatient, such as Qutenza patch (8% capsaicin). Has proven benefit in diabetic peripheral neuropathy and PHN. Couldbe an appropriate additional treatment in this patient -Thank you for the consult Patient was personally seen by me, Dr. Louis, on the day of encounter, reviewed the history and the relevant portions of the chart, including current orders, allied health and ada accommodation consultant notes, labs/imaging and performed butts elements of exam and I formulated the plan of care and facilitated the medical decision making. I completed a substantive portion of this encounter, the medical decision makingportion of this note in its entirety, including Allied health note review, nursing note review, ada accommodation consultant note review,discussion with nursing and case management, and more than 50% of my time was spent on counseling and coordination of care, time spent 60 minutes Documented By: Jared Louis MD 0930 Signed By: <Electronically signed by Jared Louis MD> 06/05/24 1138 [facility] Work Phone: 1(841) 947-690902-03-2025 Progress note Author Sherin Arellano [facility] HospitalNote Date/TimeFebruary 2024 10:42am [place] [address] Nephrology Progress Note Signed Patient: Renuka Owen MR#: [id number] : 1950 Acct:[id number] Age/Sex: 73 / F Adm Date: 5 Loc: 3T Room: [address] [place] [address] Type: ADM IN Attending Dr: Landon Whitfield MD Copies to: ~ Date of Service: 06/05/2024 Subjective Subjective Narrative: This is a 73-year-old female with medical history of CKD, anemia, orthostatic hypotension, mitral regurgitation, HFrEF, HTN, cervical spondylosis was presented to the emergency room after mechanical fall. Patient was recently [facility] for LATANYA and was seen by our service. Initial evaluation emergency room showed anemia with hemoglobin 10.5 g/dL and LATANYA with elevated serum creatinine 2.0 mg/dL. Patient had a CT head which showed no acute finding. Patient was started on IV fluid resuscitation and her home dose of the diuretics and antihypertensive medication including enalapril and carvedilol were held. Patient denies any history of a viral infection or nausea vomiting diarrhea prior to hospitalization. Nephrology is consulted for LATANYA on CKD management. Interim history Patient was seen and examined bedside. Denies any chest pain palpation cough nausea vomiting or shortness of breath. She slept well last and ate her breakfast this morning. Exam Physical Exam Vital Signs: Temp Pulse Resp BP Pulse Ox O2 Del Method 98 F 94 17 111/71 98 Room Air 06/05/24 09:44 06/05/24 09:44 06/05/24 09:44 06/05/24 09:44 06/05/24 09:44 06/05/24 09:44 Narrative: General: Appears comfortable and not in distress Heart: S1-S2, no rub Lung: Bilateral air entry, no wheezing or crackles Abdomen: Soft, positive bowel sounds Extremities: No edema, no cyanosis Head: Atraumatic, normocephalic Ear: No gross hearing Deficit or external ear redness Eyes: No pallor or redness Neck: No JVD or visible mass Skin: No rashes , warm to touch TOP FORMER: Awake,Alert, following simple command Musculoskeletal: No swelling or limitation of movement of the large joints Psychiatric: Cooperative, normal mood and affect Objective Intake and Output I&O: Intake & Output 06/02/24 06/03/24 06/04/24 06/05/24 23:59 23:59 23:59 23:59 Intake Total 20990 / 2200 1200 / 1200 200 / 200 Balance 2099 2200 / 2200 1200 / 1200 200 / 200 Weight 70.5 kg 70.3 kg 71 kg Meds and Allergies Meds: Active Medications Acetaminophen (Acetaminophen 500 Mg Tablet) 500 mg PO Q4H PRN PRN Reason: Pain Stop: 06/01/25 17:07 Last Admin: 06/04/24 20:14 Dose: 500 mg Aspirin (Aspirin 81 Mg Tablet.) 81 mg PO DAILY [facility] Stop: 06/02/25 08:59 Last Admin: 06/05/24 09:41 Dose: 81 mg Baclofen (Baclofen 20 Mg Tablet) 20 mg PO QPM [facility] Stop: 06/04/25 20:59 Last Admin: 06/04/24 20:14 Dose: 20 mg Carvedilol (Carvedilol 3.125 Mg Tablet) 3.125 mg PO BID.WITH.MEALS [facility] Stop: 06/04/25 16:59 Last Admin: 06/05/24 09:41 Dose: 3.125 mg Diphenhydramine HCl (Diphenhydramine 50 Mg/Ml Vial) 25 mg IV-PUSH QHS PRN PRN Reason: Insomnia refractory to baclofen/trazadone Stop: 06/04/25 21:59 Enoxaparin Sodium (Enoxaparin 30 Mg/0.3 Ml Syringe) 30 mg SUBCUT DAILY@10 [facility] Stop: 06/02/25 09:59 Last Admin: 06/05/24 09:42 Dose: 30 mg Fluticasone Propionate (Fluticasone Propionate Hurricane 120 Hurricane/16 Gm Bottle) 2 spray NARES-BOTH DAILY PRN PRN Reason: NASAL CONGESTION Stop: 06/02/25 08:59 Last Admin: 06/03/24 11:32 Dose: 2 spray Gabapentin (Gabapentin 600 Mg Tablet) 600 mg PO TID [facility] Stop: 06/03/25 13:59 Last Admin: 06/05/24 09:42 Dose: 600 mg Montelukast Sodium (Montelukast 10 Mg Tablet) 10 mg PO HS [facility] Stop: 06/01/25 21:59 Last Admin: 06/04/24 20:14 Dose: 10 mg Pantoprazole Sodium (Pantoprazole 40 Mg Tablet.) 40 mg PO BID.AC.BKFAST.SUPPER [facility] Stop: 06/02/25 07:29 Last Admin: 06/05/24 06:13 Dose: 40 mg Sodium Chloride (Sodium Chloride 0.9 % 10 Ml Syringe) 0 ml IV-PUSH PRN PRN PRN Reason: Flush Stop: 06/01/25 11:38 Last Admin: 06/01/24 12:07 Dose: 10 ml Torsemide (Torsemide 20 Mg Tablet) 20 mg PO DAILY@0800 [facility] Stop: 06/05/25 07:59 Last Admin: 06/05/24 09:42 Dose: 20 mg Trazodone HCl (Trazodone 100 Mg Tablet) 100 mg PO HS [facility] Stop: 06/04/25 19:59 Last Admin: 06/04/24 20:14 Dose: 100 mg Allergies atorvastatin (From Lipitor) Allergy (Unknown, Verified 06/01/24 11:40) Hives levofloxacin (Levaquin) Allergy (Unknown, Verified 06/01/24 11:40) Unknown Reaction Penicillins Allergy (Verified 06/01/24 11:40) Hives Results - Nephrology Labs 06/03/24 06:06 06/05/24 05:54 Labs: 06/05/24 05:54 BUN 29 H Creatinine 1.23 H Radiology Impressions Impressions - last 24 hours: Any impression(s) listed above is documentation that was entered by the reading physician into a diagnostic report(s) for Renuka Owen. I have reviewed the report(s) and am incorporating any findings in the treatment plan of this patient where applicable. A&P - Nephrology Assessment/Plan (1) Rjdcw-jp-bwzvbmr kidney injury: Assessment/Problem Details: She has LATANYA likely due to the hypovolemia. Renal function improved with IV fluid resuscitation. Herrenal ultrasound showed unremarkable kidneys. (2) Hypokalemia: Assessment/Problem Details: She has hypokalemia due to the diuretic induced renal potassium wasting (3) Chronic kidney disease: Assessment/Problem Details: She has CKD due to the chronic cardiorenal syndrome and hypertension with baseline serum run around1.0 mg/dL. (4) Hypertension: Assessment/Problem Details: Her blood pressure was low on presentation. She was taking carvedilol, metolazone, torsemide and enalapril at home. (5) Anemia: Assessment/Problem Details: Hemoglobin is below the goal. (6) Chronic HFrEF (heart failure with reduced ejection fraction): Assessment/Problem Details: She appears to be well compensated. She was taking metolazone and torsemide at home. Plan * Continue 20 mg daily. * Will give potassium chloride 40 mEq p.o. x 1 dose. * Will give magnesium sulfate 2 g IV x 1 dose. * Will continue to hold home dose of the metolazone and enalapril * Continue current dose of carvedilol to 3.125 mg twice daily to avoid hypotension. * Check renal function daily monitor input output * Documented By: Sherin Arellano MD 06/05/24 1041 Signed By: <Electronically signed by Sherin Arellano MD> 06/05/24 1042 [facility] Work Phone: 1(258) 318-288802-03-2025 [place] [address] Physiatry (Rehab) Consult Note Signed Patient: Renuka Owen MR#: [id number] : 1950 Acct:[id number] Age/Sex: 73 / F Adm Date: 5 Loc: Room: [address] [place] [address] Type: ADM IN Attending Dr: Landon Whitfield MD Copies to: DO Jared Jama MD Rahul Prasad, MD~ HPI Consult Date: 06/05/24 Requesting Physician: Isaiah Mejia DO Primary Care Provider: Sylvester Jacob DO Consult Narrative Reason for consult: Evaluation for inpatient rehab HPI: Ms. Owen is a 73 year old female with medical history of CKD, anemia, orthostatic hypotension, mitral regurgitation, HFrEF, HTN, cervical spondylosis who presented to the hospital after a fall and was admitted due to LATANYA. Upon admission, a CT head was performed which was negative for acute intracranial abnormality. In addition, CT cervical spine demonstrated no fracture. She was noted to have anAKI with cr 3.04/BUN 111. The patient was admitted for LATANYA on CKD management. Received IV hydrationwith improvement in renal function. I met with this patient at bedside today. She is resting in bed. She appears in no distress. She continues to report feeling week but is overall improving. She was hoping to go to the [facility] in [place] but they did not have a bed available. She is now looking to possibly come to inpatient rehab. Review of Systems Review of Systems All other systems reviewed & are negative unless noted below or in HPI [facility] Medical History Chronic kidney disease Unsteady gait when walking Anemia Orthostatic hypotension Mitral regurgitation Hypertension Chronic HFrEF (heart failure with reduced ejection fraction) Occipital headache Unsteadiness on feet Cervical spondylosis with radiculopathy Neck pain Degenerative arthritis of left foot Chronic venous insufficiency of lower extremity Nocturnal leg cramps Chemotherapy-induced peripheral neuropathy Peripheral polyneuropathy Neuropathy DDD (degenerative disc disease) Incontinence urinary incontinence GERD (gastroesophageal reflux disease) Left bundle branch block Vascular access prohibited in left upper extremity Presacral mass Excision 2019 Arthritis Low back pain Osteoporosis Breast cancer left Surgical History S/P lumbar fusion (~04/2023) H/O colonoscopy (~01/2018) History of phacoemulsification of cataract of both eyes with intraocular lens implantation 2021 History of appendectomy History of hysterectomy Hx of decompressive lumbar laminectomy 2021 History of total bilateral knee replacement one month between procedures History of left mastectomy History of repair of left rotator cuff Hx of cholecystectomy Family History Mother Breast cancer Father Testicular cancer Brother Leukemia Social History Smoking Status: Never smoker Substance Use Type: None Social History Comments: mobile home Meds Medications and Allergies Allergies atorvastatin (From Lipitor) Allergy (Unknown, Verified 06/01/24 11:40) Hives levofloxacin (Levaquin) Allergy (Unknown, Verified 06/01/24 11:40) Unknown Reaction Penicillins Allergy (Verified 06/01/24 11:40) Hives Home Medications calcium 600 mg (as carbonate)-vitamin D3 10 mcg (400 unit) tablet (Calcium 600 +D(3)) 1 tab PO BID osteoporosis 09/24/21 [History Confirmed 06/01/24] melatonin 10 mg tablet 10 mg PO HS PRN Sleep 03/16/22 [History Confirmed 06/01/24] enalapril maleate 2.5 mg tablet 2.5 mg PO BID 03/26/23 [History Confirmed 06/01/24] torsemide 20 mg tablet 20 mg PO DAILY 03/26/23 [History Confirmed 06/01/24] aspirin 81 mg tablet,delayed release 81 mg PO DAILY 04/09/23 [History Confirmed 06/01/24] acetaminophen 500 mg tablet 500 mg PO Q4H PRN Pain #0 tabs 04/19/23 [Rx Confirmed 06/01/24] fluticasone propionate 50 mcg/actuation nasal spray,suspension See Rx Instructions .Route .COMPLEX #48 mL 01/09/24 [Rx Confirmed 06/01/24] omeprazole 40 mg capsule,delayed release See Rx Instructions .Route .COMPLEX #90caps 02/24/24 [Rx Confirmed 06/01/24] gabapentin 300 mg capsule 600 mg PO TID nerve pain 04/04/24 [History Confirmed 06/01/24] metolazone 2.5 mg tablet 2.5 mg PO DAILY 04/04/24 [History Confirmed 06/01/24] trazodone 50 mg tablet 50 mg PO HS 04/07/24 [History Confirmed 06/01/24] tramadol 50 mg tablet 50 mg PO Q6HR PRN pain 30 days #30 tabs 04/12/24 [Rx Confirmed 06/01/24] montelukast 10 mg tablet 10 mg PO HS 06/01/24 [History Confirmed 06/01/24] baclofen 20 mg tablet See Rx Instructions .Route .COMPLEX #90 tabs 06/02/24 [Rx Confirmed 06/03/24] carvedilol 6.25 mg tablet See Rx Instructions .Route .COMPLEX #180 tabs 06/02/24[Rx Confirmed 06/03/24] Exam Physical Exam Vital Signs: Temp Pulse Resp BP Pulse Ox O2 Del Method 98.9 F 78 14 118/74 98 Room Air 06/04/24 16:41 06/05/24 04:00 06/05/24 04:00 06/05/24 04:00 06/05/24 04:00 06/05/24 04:00 Narrative: Gen: Awake, oriented, cooperative. HEENT: Atraumatic, PERRL, EOMI Resp: No respiratory distress Cardio: Extremities well perfused MSK: Moves all extremities spontaneously Neuro: CN grossly intact Skin: No swelling, erythema, ecchymosis appreciated Psych: Mood and affect normal Results - Phys. Rehab Labs Labs: Laboratory Results - last 24 hr 06/05/24 05:54 PHA Creatinine Clear 37.03 Sodium 140 Potassium 3.4 L Chloride 107 Carbon Dioxide 23.8 Anion Gap 12.6 BUN 29 H Creatinine 1.23 H Est GFR (CKD-EPI) 46.113 Glucose 86 Calcium 8.7 Magnesium 1.7 L Assessment/Plan (1) Dsfjl-yb-ngceziz kidney injury: (2) Unsteady gait when walking: (3) Contusion: (4) Generalized weakness: (5) Chemotherapy-induced peripheral neuropathy: (6) Impaired mobility and activities of daily living: Plan This is a 73 y/o female w/ PMH chemotherapy induced peripheral neuropathy who presents with multifactorial functional decline in the setting of an LATANYA on CKD. -Medically the patient is improving. Cr 1.23/BUN29 -Continue to have left knee pain. Imaging appears negative for acute injury -From a rehab standpoint, the patient does have functional deficits and would benefit from continued skilled therapy, particularly since she lives alone. She does not meet criteria for inpatient rehab at this time as she does not have an approved inpatient rehab diagnosis and does have medical and rehab complexity that would necessitate physician oversight. -Regarding the patients neuropathy, I would consider other alternative treatments outpatient, such as Qutenza patch (8% capsaicin). Has proven benefit in diabetic peripheral neuropathy and PHN. Couldbe an appropriate additional treatment in this patient -Thank you for the consult Patient was personally seen by me, Dr. Louis, on the day of encounter, reviewed the history and the relevant portions of the chart, including current orders, allied health and ada accommodation consultant notes, labs/imaging and performed butts elements of exam and I formulated the plan of care and facilitated the medical decision making. I completed a substantive portion of this encounter, the medical decision makingportion of this note in its entirety, including Allied health note review, nursing note review, ada accommodation consultant note review,discussion with nursing and case management, and more than 50% of my time was spent on counseling and coordination of care, time spent 60 minutes Documented By: Jared Louis MD [id number] Signed By: 06/05/24 1135 [facility]02-03-2025 [place] [address] Nephrology Progress Note Signed Patient: Renuka Owen MR#: [id number] : 1950 Acct:[id number] Age/Sex: 73 / F Adm Date: 5 Loc: Room: [address] [place] [address] Type: ADM IN Attending Dr: Landon Whitfield MD Copies to: ~ Date of Service: 06/05/2024 Subjective Subjective Narrative: This is a 73-year-old female with medical history of CKD, anemia, orthostatic hypotension, mitral regurgitation, HFrEF, HTN, cervical spondylosis was presented to the emergency room after mechanical fall. Patient was recently admitted at [facility] for LATANYA and was seen by our service. Initial evaluation emergency room showed anemia with hemoglobin 10.5 g/dL and LATANYA with elevated serum creatinine 2.0 mg/dL. Patient had a CT head which showed no acute finding. Patient was started on IV fluid resuscitation and her home dose of the diuretics and antihypertensive medication including enalapril and carvedilol were held. Patient denies any history of a viral infection or nausea vomiting diarrhea prior to hospitalization. Nephrology is consulted for LATANYA on CKD management. Interim history Patient was seen and examined bedside. Denies any chest pain palpation cough nausea vomiting or shortness of breath. She slept well last and ate her breakfast this morning. Exam Physical Exam Vital Signs: Temp Pulse Resp BP Pulse Ox O2 Del Method 98 F 94 17 111/71 98 Room Air 06/05/24 09:44 06/05/24 09:44 06/05/24 09:44 06/05/24 09:44 06/05/24 09:44 06/05/24 09:44 Narrative: General: Appears comfortable and not in distress Heart: S1-S2, no rub Lung: Bilateral air entry, no wheezing or crackles Abdomen: Soft, positive bowel sounds Extremities: No edema, no cyanosis Head: Atraumatic, normocephalic Ear: No gross hearing Deficit or external ear redness Eyes: No pallor or redness Neck: No JVD or visible mass Skin: No rashes , warm to touch TOP FORMER: Awake,Alert, following simple command Musculoskeletal: No swelling or limitation of movement of the large joints Psychiatric: Cooperative, normal mood and affect Objective Intake and Output I&O: Intake & Output 06/02/24 06/03/24 06/04/24 06/05/24 23:59 23:59 23:59 23:59 Intake Total 2099 2200 / 2200 1200 / 1200 200 / 200 Balance 2099 2200 / 2200 1200 / 1200 200 / 200 Weight 70.5 kg 70.3 kg 71 kg Meds and Allergies Meds: Active Medications Acetaminophen (Acetaminophen 500 Mg Tablet) 500 mg PO Q4H PRN PRN Reason: Pain Stop: 06/01/25 17:07 Last Admin: 06/04/24 20:14 Dose: 500 mg Aspirin (Aspirin 81 Mg Tablet.) 81 mg PO DAILY [facility] Stop: 06/02/25 08:59 Last Admin: 06/05/24 09:41 Dose: 81 mg Baclofen (Baclofen 20 Mg Tablet) 20 mg PO QPM [facility] Stop: 06/04/25 20:59 Last Admin: 06/04/24 20:14 Dose: 20 mg Carvedilol (Carvedilol 3.125 Mg Tablet) 3.125 mg PO BID.WITH.MEALS [facility] Stop: 06/04/25 16:59 Last Admin: 06/05/24 09:41 Dose: 3.125 mg Diphenhydramine HCl (Diphenhydramine 50 Mg/Ml Vial) 25 mg IV-PUSH QHS PRN PRN Reason: Insomnia refractory to baclofen/trazadone Stop: 06/04/25 21:59 Enoxaparin Sodium (Enoxaparin 30 Mg/0.3 Ml Syringe) 30 mg SUBCUT DAILY@10 [facility] Stop: 06/02/25 09:59 Last Admin: 06/05/24 09:42 Dose: 30 mg Fluticasone Propionate (Fluticasone Propionate Hurricane 120 Hurricane/16 Gm Bottle) 2 spray NARES-BOTH DAILY PRN PRN Reason: NASAL CONGESTION Stop: 06/02/25 08:59 Last Admin: 06/03/24 11:32 Dose: 2 spray Gabapentin (Gabapentin 600 Mg Tablet) 600 mg PO TID [facility] Stop: 06/03/25 13:59 Last Admin: 06/05/24 09:42 Dose: 600 mg Montelukast Sodium (Montelukast 10 Mg Tablet) 10 mg PO HS [facility] Stop: 06/01/25 21:59 Last Admin: 06/04/24 20:14 Dose: 10 mg Pantoprazole Sodium (Pantoprazole 40 Mg Tablet.) 40 mg PO BID.AC.BKFAST.SUPPER [facility] Stop: 06/02/25 07:29 Last Admin: 06/05/24 06:13 Dose: 40 mg Sodium Chloride (Sodium Chloride 0.9 % 10 Ml Syringe) 0 ml IV-PUSH PRN PRN PRN Reason: Flush Stop: 06/01/25 11:38 Last Admin: 06/01/24 12:07 Dose: 10 ml Torsemide (Torsemide 20 Mg Tablet) 20 mg PO DAILY@0800 [facility] Stop: 06/05/25 07:59 Last Admin: 06/05/24 09:42 Dose: 20 mg Trazodone HCl (Trazodone 100 Mg Tablet) 100 mg PO HS [facility] Stop: 06/04/25 19:59 Last Admin: 06/04/24 20:14 Dose: 100 mg Allergies atorvastatin (From Lipitor) Allergy (Unknown, Verified 06/01/24 11:40) Hives levofloxacin (Levaquin) Allergy (Unknown, Verified 06/01/24 11:40) Unknown Reaction Penicillins Allergy (Verified 06/01/24 11:40) Hives Results - Nephrology Labs 06/03/24 06:06 06/05/24 05:54 Labs: 06/05/24 05:54 BUN 29 H Creatinine 1.23 H Radiology Impressions Impressions - last 24 hours: Any impression(s) listed above is documentation that was entered by the reading physician into a diagnostic report(s) for Renuka Owen. I have reviewed the report(s) and am incorporating any findings in the treatment plan of this patient where applicable. A&P - Nephrology Assessment/Plan (1) Tqgtp-iw-wcqvarv kidney injury: Assessment/Problem Details: She has LATANYA likely due to the hypovolemia. Renal function improved with IV fluid resuscitation. Herrenal ultrasound showed unremarkable kidneys. (2) Hypokalemia: Assessment/Problem Details: She has hypokalemia due to the diuretic induced renal potassium wasting (3) Chronic kidney disease: Assessment/Problem Details: She has CKD due to the chronic cardiorenal syndrome and hypertension with baseline serum run around1.0 mg/dL. (4) Hypertension: Assessment/Problem Details: Her blood pressure was low on presentation. She was taking carvedilol, metolazone, torsemide and enalapril at home. (5) Anemia: Assessment/Problem Details: Hemoglobin is below the goal. (6) Chronic HFrEF (heart failure with reduced ejection fraction): Assessment/Problem Details: She appears to be well compensated. She was taking metolazone and torsemide at home. Plan * Continue 20 mg daily. * Will give potassium chloride 40 mEq p.o. x 1 dose. * Will give magnesium sulfate 2 g IV x 1 dose. * Will continue to hold home dose of the metolazone and enalapril * Continue current dose of carvedilol to 3.125 mg twice daily to avoid hypotension. * Check renal function daily monitor input output * Documented By: Sherin Arellano MD 06/05/24 1041 Signed By: 06/05/24 1042 [facility]02-02-2025 Progress note Author Isaiah Mejia [facility] Hospital[facility] Date/TimeFebruary 2024 8:00pm [place] [address] Hospitalist Progress Note Signed Patient: Renuka Owen MR#: [id number] : 1950 Acct:[id number] Age/Sex: 73 / F Adm Date: 5 Loc: Room: [address] [place] [address] Type: ADM IN Attending Dr: Isaiah Mejia DO Copies to: ~ Date of Service: 06/04/2024 Subjective Subjective Narrative: Patient was seen and examined the bedside this evening. She received her baclofen last evening after being held on admission. She has now been also placed back on her gabapentin. She states this gabapentin is not necessarily helping her longstanding neuropathy. Discussed potentially going up on dose butconcerns initially with LATANYA were of toxicity of gabapentin/baclofen with reducedGFR. With resumption of these home medications last night she states she still did not sleep well despite her 50 mgtrazodone also being resumed. She request something more for sleep so she can have a good rest thisevening. I discussed options further with her including Ambien which she states makes her have vivid dreams and does not want to to take this medication. Physical Examination: GENERAL APPEARANCE: Alert, pleasant, appropriately oriented HEENT: NCAT, MMM CARDIAC: Normal S1 and S2. No S3, S4 or murmurs. LUNGS: Clear to auscultation bilaterally. no wheeze/rhonchi/rales ABDOMEN: Positive bowel sounds. Soft, nontender. No guarding or signs of an acute abdomen MUSCULOSKELETAL: Moving all extremities appropriately EXTREMITIES: No clubbing, cyanosis or edema. Anterior swelling noted in bilateral shins with presence of contusion NEUROLOGICAL: No focal motor deficits. CN II-XI grossly intact PSYCHIATRIC: Appropriate mood and affect Assessment: Acute kidney injury on chronic kidney disease stage III Contusion Generalized Weakness Chronic congestive heart failure with reduced ejection fraction Mitral regurgitation Orthostatic hypotension Anemia Chemotherapy induced peripheral neuropathy GERD Insomnia Renal function remains stable after 2 days of IV fluid and now resuming antihypertensive medications and diuretics. Her blood pressure is trending moretowards normotensive range and we will continue to monitor this as she has a documented history of orthostatic hypotension. Unfortunately medications to treat her GDMT for HFrEF and highly symptomatic neuropathy are essential in order to maintain and optimize these conditions. PT/OT has evaluated the patient and she is agreeable and looking at care home facilities at discharge. Medically she will be likely ready for this as early as tomorrow. Unfortunately she has ongoing insomnia and difficulty sleeping despite the resumption of her previously prescribed meds. I discussed with her that there is slight room to increase her gabapentin or potentially she may respond better to Lyrica or other tricyclic antidepressant to treat nerve related pain. Ultimately she could not sleep last night despite her home baclofen and trazodone. I willincrease her trazodone to 100 mg nightly to be given with hernormal p.m. meds this evening and not at 2200. Similarly baclofen should also be given with evening meds and not later at 2200. Will stop gabapentin as likely highly ineffective with her chronic regimen and I have provided an on IV push of Benadryl as needed for insomnia persisting past these increased doses this evening Diet: Renal Diet No Dialysis Code Status: Full Code DVT Prophylaxis: Lovenox Exam Physical Exam Vital Signs: Temp Pulse Resp BP Pulse Ox O2 Del Method 98.9 F 84 18 123/75 99 Room Air 06/04/24 16:41 06/04/24 16:41 06/04/24 16:41 06/04/24 16:41 06/04/24 16:41 06/04/24 16:41 Objective Lab Results 06/03/24 06:06 06/04/24 06:09 Meds Allergies and Active Meds Allergies atorvastatin (From Lipitor) Allergy (Unknown, Verified 06/01/24 11:40) Hives levofloxacin (Levaquin) Allergy (Unknown, Verified 06/01/24 11:40) Unknown Reaction Penicillins Allergy (Verified 06/01/24 11:40) Hives Active Meds: Active Medications Generic Name Dose Route Start Last Admin Trade Name Kwesi PRN Reason Stop Dose Admin Acetaminophen 500 mg 06/01/24 17:08 06/04/24 14:42 Acetaminophen 500 Mg Tablet PO 06/01/25 17:07 500 mg Q4H PRN Administration Pain Aspirin 81 mg 06/02/24 09:00 06/04/24 08:24 Aspirin 81 Mg Tablet. PO 06/02/25 08:59 81 mg DAILY [facility] Administration Baclofen 20 mg 06/04/24 21:00 Baclofen 20 Mg Tablet PO 06/04/25 20:59 QPM [facility] Carvedilol 3.125 mg 06/04/24 17:00 06/04/24 16:42 Carvedilol 3.125 Mg Tablet PO 06/04/25 16:59 3.125 mg BID.WITH.MEALS [facility] Administration Diphenhydramine HCl 25 mg 06/04/24 19:42 Diphenhydramine 50 Mg/Ml Vial IV-PUSH 06/04/25 21:59 QHS PRN Insomnia refractory to baclofen/trazadone Enoxaparin Sodium 30 mg 06/02/24 10:00 06/04/24 09:50 Enoxaparin 30 Mg/0.3 Ml Syringe SUBCUT 06/02/25 09:59 Not Given DAILY@10 [facility] Fluticasone Propionate 2 spray 06/02/24 09:00 06/03/24 11:32 Fluticasone Propionate Hurricane 120 Hurricane/16 Gm Bottle NARES-BOTH 06/02/25 08:59 2 spray DAILY PRN Administration NASAL CONGESTION Gabapentin 600 mg 06/03/24 14:00 06/04/24 12:59 Gabapentin 600 Mg Tablet PO 06/03/25 13:59 600 mg TID [facility] Administration Montelukast Sodium 10 mg 06/01/24 22:00 06/03/24 20:52 Montelukast 10 Mg Tablet PO 06/01/25 21:59 10 mg HS [facility] Administration Pantoprazole Sodium 40 mg 06/02/24 07:30 06/04/24 16:42 Pantoprazole 40 Mg Tablet. PO 06/02/25 07:29 40 mg BID.AC.BKFAST.SUPPER [facility] Administration Sodium Chloride 0 ml 06/01/24 11:39 06/01/24 12:07 Sodium Chloride 0.9 % 10 Ml Syringe IV-PUSH 06/01/25 11:38 10 ml PRN PRN Administration Flush Torsemide 20 mg 06/05/24 08:00 Torsemide 20 Mg Tablet PO 06/05/25 07:59 DAILY@0800 [facility] Trazodone HCl 100 mg 06/04/24 19:45 Trazodone 100 Mg Tablet PO 06/04/25 19:44 HS [facility] A&P - Hospitalist Assessment/Plan (1) Jclgz-qj-tukkqgs kidney injury: (2) Contusion: (3) Generalized weakness: Plan . Documented By: Isaiah Mejia DO 06/04/24 19 52 Signed By: <Electronically signed by Isaiah Mejia DO> 06/04/241999 [facility] Work Phone: 1(470) 719-204802-02-2025 Progress note Author Isaiah Mejia [facility] Date/TimeFebruary 2024 7:52pm [place] [address] Hospitalist Progress Note Signed Patient: Renuak Owen MR#: [id number] : 1950 Acct:[id number] Age/Sex: 73 / F Adm Date: 5 Loc: Room: [address] [place] [address] Type: ADM IN Attending Dr: Isaiah Mejia DO Copies to: ~ Date of Service: 06/03/2024 Subjective Subjective Narrative: Renuka Owen is a 73 y.o. female with a PMH of CKD, anemia, orthostatic hypotension, mitral regurgitation, hypertension, chronic HFrEF, unsteady gait, cervical spondylosis with radiculopathy, degenerative arthritis, chronic venous insufficiency, chemotherapy induced peripheral neuropathy, degenerative disc disease, incontinence, GERD, left bundle branch block, vascular access prohibited in left upper extremity, presacral mass with excision in 2019, low back pain, osteoporosis, breast cancer with left sided mastectomy, and cholecystectomy who initially presented to [facility] on 06/01/24 for concerns regarding a fall and LATANYA. Patient was seen and examined while sitting upright and resting comfortably in her chair. She notesthat she is doing alright today. Her kidney function has improved after IV hydration with BUN 42,Creatinine 1.03, eGFR 57.057. She states that she has not been able to eat as much due to mild stomach upset. Patient also reports that she is not sleeping well due to nerve pain and nasal congestion. She is wondering if she would be able to restart her home gabapentinand nasal spray today. Blood pressure has improved to 129/78. Patient denies anydysuria, hematuria, or abnormal discharge. Nephrology has been consulted. Patient is here for further evaluation. Physical Examination: GENERAL APPEARANCE: Alert, pleasant, appropriately oriented HEENT: NCAT, MMM CARDIAC: Normal S1 and S2. No S3, S4 or murmurs. LUNGS: Clear to auscultation bilaterally. no wheeze/rhonchi/rales ABDOMEN: Positive bowel sounds. Soft, nontender. No guarding or signs of an acute abdomen MUSCULOSKELETAL: Moving all extremities appropriately EXTREMITIES: No clubbing, cyanosis or edema. Anterior swelling noted in bilateral shins with presence of contusion NEUROLOGICAL: No focal motor deficits. CN II-XI grossly intact PSYCHIATRIC: Appropriate mood and affect Assessment: Acute kidney injury on chronic kidney disease stage III Contusion Generalized Weakness Chronic congestive heart failure with reduced ejection fraction Mitral regurgitation Orthostatic hypotension Anemia Chemotherapy induced peripheral neuropathy GERD Plan: - WBC 9.4 - Hgb 10.5, Hct 31.8, MCV 85.4 - Na 138, K 4, Cl 94 - BUN 111, Creatinine 3.04, eGFR 15.569; 06/03/24 BUN 42, Creatinine 1.03, eGFR 57.057 - Glucose 115 - Mg 3.3 - TSH 5.13 - Cervical Spine CT demonstrated no cervical spine fracture - Head CT showed no acute intracranial abnormality - Chest X ray revealed chronic interstitial change without acute process - Knee X ray demonstrated left TKA without radiographic complication - Tibia/Fibula X Ray showed partially visualized right TKA without radiographic complication. Remote deformity involving the mid fibula suggestive of prior fracture. Ankle mortise appears intact. Soft tissue swelling noted predominantlyanterior. Left tib/fib mild soft tissue swelling primarily anter iorly with possible underlying hematoma. No acute bony process is seen. Ankle mortise appears intact. Plantar spurring - EKG demonstrates sinus rhythm with premature ventricular complexes or fusion complexes. Left bundle branch block - Apply Telemetry - IV fluids - Continue to monitor kidney function with daily labs - Consider Nephrology consult, appreciate recommendations - Urinalysis pending - Consider Neurology consult due to generalized weakness, appreciate recommendations - PT/OT consult, appreciate recommendations - Nephrology consult, appreciate recommendations Diet: Renal Diet No Dialysis Code Status: Full Code DVT Prophylaxis: Lovenox Exam Physical Exam Vital Signs: Temp Pulse Resp BP Pulse Ox O2 Del Method 98.3 F 83 18 129/78 99 Room Air 06/03/24 08:05 06/03/24 08:05 06/03/24 08:05 06/03/24 08:05 06/03/24 08:05 06/03/24 08:05 Narrative: Physical Examination: GENERAL APPEARANCE: Alert, pleasant, appropriately oriented HEENT: NCAT, MMM CARDIAC: Normal S1 and S2. No S3, S4 or murmurs. LUNGS: Clear to auscultation bilaterally. no wheeze/rhonchi/rales ABDOMEN: Positive bowel sounds. Soft, nontender. No guarding or signs of an acute abdomen MUSCULOSKELETAL: Moving all extremities appropriately. Generalized weakness noted during motion andstrength testing, most prominent in lower extremities. EXTREMITIES: No clubbing, cyanosis or edema. Anterior swelling noted in bilateral shins with presence of contusion NEUROLOGICAL: No focal motor deficits. CN II-XI grossly intact PSYCHIATRIC: Appropriate mood and affect Objective Lab Results 06/03/24 06:06 06/04/24 06:09 Meds Allergies and Active Meds Allergies atorvastatin (From Lipitor) Allergy (Unknown, Verified 06/01/24 11:40) Hives levofloxacin (Levaquin) Allergy (Unknown, Verified 06/01/24 11:40) Unknown Reaction Penicillins Allergy (Verified 06/01/24 11:40) Hives Active Meds: Active Medications Generic Name Dose Route Start Last Admin Trade Name Freq PRN Reason Stop Dose Admin Acetaminophen 500 mg 06/01/24 17:08 06/03/24 05:18 Acetaminophen 500 Mg Tablet PO 06/01/25 17:07 500 mg Q4H PRN Administration Pain Aspirin 81 mg 06/02/24 09:00 06/03/24 08:08 Aspirin 81 Mg Tablet. PO 06/02/25 08:59 81 mg DAILY [facility] Administration Enoxaparin Sodium 30 mg 06/02/24 10:00 06/03/24 09:05 Enoxaparin 30 Mg/0.3 Ml Syringe SUBCUT 01/31/26 09:59 Not Given DAILY@10 [facility] Fluticasone Propionate 2 spray 06/02/24 09:00 Fluticasone Propionate Hurricane 120 Hurricane/16 Gm Bottle NARES-BOTH 06/02/25 08:59 DAILY PRN NASAL CONGESTION Melatonin 10 mg 06/01/24 18:01 06/02/24 20:42 Melatonin 5 Mg Tablet PO 06/01/25 18:00 10 mg QHS PRN Administration Sleep Montelukast Sodium 10 mg 06/01/24 22:00 06/02/24 20:42 Montelukast 10 Mg Tablet PO 06/01/25 21:59 10 mg HS [facility] Administration Pantoprazole Sodium 40 mg 06/02/24 07:30 06/03/24 05:19 Pantoprazole 40 Mg Tablet. PO 06/02/25 07:29 40 mg BID.AC.BKFAST.SUPPER [facility] Administration Sodium Chloride 0 ml 06/01/24 11:39 06/01/24 12:07 Sodium Chloride 0.9 % 10 Ml Syringe IV-PUSH 06/01/25 11:38 10 ml PRN PRN Administration Flush Trazodone HCl 50 mg 06/01/24 22:00 06/02/24 20:42 Trazodone 50 Mg Tablet PO 06/01/25 21:59 50 mg HS JUSTYN Administration A&P - Hospitalist Assessment/Plan (1) Kztff-ur-ubsyglf kidney injury: (2) Contusion: (3) Generalized weakness: Plan . <Statement entered by Isaiah Mejia DO - 06/04/24 19:52> I personally saw and examined patient at bedside today. Case was discussed and coordinated in conjunction with pediatrician/medical doctor. I agree with management as noted therein. Nephrology will be consulted to assist in hypertensive and diuretic management. Maintain IV fluid hydration and resume medications gradually as tolerated as undoubtedly has need for GDMT for reduced ejection fraction heart failure will have some diuretic needed at baseline to be titrated gradually. Documented By: Isaiah Mejia DO 06/03/24 10 28 Signed By: <Electronically signed by Isaiah Mejia DO> 06/04/241951 <Electronically signed by MD AMBER Carver> 06/03/24 9992 [facility] Work Phone: 1(873) 733-330102-02-2025 History and physical note Author Isaiah Frings [facility] Date/TimeFebruary 2024 7:50pm [place] [address] Hospitalist H&P Signed Patient: Renuka Owen MR#: [id number] : 1950 Acct:[id number] Age/Sex: 73 / F Adm Date: 5 Loc: Room: [address] [place] [address] Type: ADM IN Attending Dr: Isaiah Mejia DO Copies to: DO Mathew Jama MD, RES Isaiah Mejia, ~ HPI DATE OF EXAMINATION: 06/01/24 CHIEF COMPLAINT: Fall, LATANYA HISTORY OF PRESENT ILLNESS: Renuka Owen is a 73 y.o. female with a PMH of CKD, anemia, orthostatic hypotension, mitral regurgitation, hypertension, chronic HFrEF, unsteady gait, cervical spondylosis with radiculopathy, degenerative arthritis, chronic venous insufficiency, chemotherapy induced peripheral neuropathy, degenerative disc disease, incontinence, GERD, left bundle branch block, vascular access prohibited in left upper extremity, presacral mass with excision in 2019, low back pain, osteoporosis, breast cancer with left sided mastectomy, and cholecystectomy who initially presented to [facility] on 06/01/24 for concerns regarding a fall and LATANYA. Patient states that she experienced a fall prior to her hospital visit when she tripped getting into the car. She notes that she struck her head as well as her anterior shins during the fall. She denies any dizziness, lightheadedness, or loss of consciousness. She complains of generalized weakness and notes a historyof neuropathy and previous falls for which she is scheduled her Neurologist, , at the end of June. Patient describes her symptoms as my legs feeling like rubber and also mentions occasional tremors. She complains of headache and pain in her shins at present. Denies fever, chills, chest pain, shortness of breath, nausea, vomiting, diarrhea, or constipation. Denies tobacco, alcohol, or other drug use. Denies history of stroke, DVT, or blood thinner use. Initial workup in the ED revealed WBC 9.4, Hgb 10.5, Hct 31.8, MCV 85.4, Na 138,K 4, Cl 94, BUN 111, Creatinine 3.04, eGFR 15.569, Glucose 115, Mg 3.3, TSH 5.13. Cervical Spine CT demonstrated no cervical spine fracture. Head CT showed no acute intracranial abnormality. Chest X ray revealed chronicinterstitial change without acute process. Knee X ray demonstrated left TKA without radiographic complication. Tibia/Fibula X Ray showed partially visualized right TKA without radiographic complication. Remote deformity involving the mid fibulasuggestive of prior fracture. Ankle mortise appears intact. Soft tissue swellingnoted predominantly anterior. Left tib/fib mild soft tissue swelling primarily anteriorly with possible underlying hematoma. No acute bony process is seen. Ankle mortise appears intact. Plantar spurring. EKG demonstrates sinus rhythm with premature ventricular complexes or fusion complexes. Left bundle branch block. She is here for further evaluation. Physical Examination: GENERAL APPEARANCE: Alert, pleasant, appropriately oriented HEENT: NCAT, MMM CARDIAC: Normal S1 and S2. No S3, S4 or murmurs. LUNGS: Clear to auscultation bilaterally. no wheeze/rhonchi/rales ABDOMEN: Positive bowel sounds. Soft, nontender. No guarding or signs of an acute abdomen MUSCULOSKELETAL: Moving all extremities appropriately. Generalized weakness noted during motion andstrength testing, most prominent in lower extremities. EXTREMITIES: No clubbing, cyanosis or edema. Anterior swelling noted in bilateral shins with presence of contusion NEUROLOGICAL: No focal motor deficits. CN II-XI grossly intact PSYCHIATRIC: Appropriate mood and affect Assessment: Acute kidney injury on chronic kidney disease stage III Contusion Generalized Weakness Chronic congestive heart failure with reduced ejection fraction Mitral regurgitation Orthostatic hypotension Anemia Chemotherapy induced peripheral neuropathy GERD Plan: - WBC 9.4 - Hgb 10.5, Hct 31.8, MCV 85.4 - Na 138, K 4, Cl 94 - BUN 111, Creatinine 3.04, eGFR 15.569 - Glucose 115 - Mg 3.3 - TSH 5.13 - Cervical Spine CT demonstrated no cervical spine fracture - Head CT showed no acute intracranial abnormality - Chest X ray revealed chronic interstitial change without acute process - Knee X ray demonstrated left TKA without radiographic complication - Tibia/Fibula X Ray showed partially visualized right TKA without radiographic complication. Remote deformity involving the mid fibula suggestive of prior fracture. Ankle mortise appears intact. Soft tissue swelling noted predominantlyanterior. Left tib/fib mild soft tissue swelling primarily anter iorly with possible underlying hematoma. No acute bony process is seen. Ankle mortise appears intact. Plantar spurring - EKG demonstrates sinus rhythm with premature ventricular complexes or fusion complexes. Left bundle branch block - Apply Telemetry - IV fluids - Continue to monitor kidney function with daily labs - Consider Nephrology consult, appreciate recommendations - Urinalysis pending - Consider Neurology consult due to generalized weakness, appreciate recommendations - PT/OT consult, appreciate recommendations Diet: Renal Diet No Dialysis Code Status: Full Code DVT Prophylaxis: Lovenox Review of Systems Review of Systems All other systems reviewed & are negative unless noted below or in HPI [facility] Medical History Chronic kidney disease Unsteady gait when walking Anemia Orthostatic hypotension Mitral regurgitation Hypertension Chronic HFrEF (heart failure with reduced ejection fraction) Occipital headache Unsteadiness on feet Cervical spondylosis with radiculopathy Neck pain Degenerative arthritis of left foot Chronic venous insufficiency of lower extremity Nocturnal leg cramps Chemotherapy-induced peripheral neuropathy Peripheral polyneuropathy Neuropathy DDD (degenerative disc disease) Incontinence urinary incontinence GERD (gastroesophageal reflux disease) Left bundle branch block Vascular access prohibited in left upper extremity Presacral mass Excision 2019 Arthritis Low back pain Osteoporosis Breast cancer left Surgical History S/P lumbar fusion (~04/2023) H/O colonoscopy (~01/2018) History of phacoemulsification of cataract of both eyes with intraocular lens implantation 2021 History of appendectomy History of hysterectomy Hx of decompressive lumbar laminectomy 2021 History of total bilateral knee replacement one month between procedures History of left mastectomy History of repair of left rotator cuff Hx of cholecystectomy Family History Mother Breast cancer Father Testicular cancer Brother Leukemia Social History Smoking Status: Never smoker Substance Use Type: None Social History Comments: mobile home Meds Medications and Allergies Allergies atorvastatin (From Lipitor) Allergy (Unknown, Verified 06/01/24 11:40) Hives levofloxacin (Levaquin) Allergy (Unknown, Verified 06/01/24 11:40) Unknown Reaction Penicillins Allergy (Verified 06/01/24 11:40) Hives Home Medications calcium 600 mg (as carbonate)-vitamin D3 10 mcg (400 unit) tablet (Calcium 600 +D(3)) 1 tab PO BID osteoporosis 09/24/21 [History Confirmed 06/01/24] melatonin 10 mg tablet 10 mg PO HS PRN Sleep 03/16/22 [History Confirmed 06/01/24] enalapril maleate 2.5 mg tablet 2.5 mg PO BID 03/26/23 [History Confirmed 06/01/24] torsemide 20 mg tablet 20 mg PO DAILY 03/26/23 [History Confirmed 06/01/24] aspirin 81 mg tablet,delayed release 81 mg PO DAILY 04/09/23 [History Confirmed 06/01/24] acetaminophen 500 mg tablet 500 mg PO Q4H PRN Pain #0 tabs 04/19/23 [Rx Confirmed 06/01/24] fluticasone propionate 50 mcg/actuation nasal spray,suspension See Rx Instructions .Route .COMPLEX #48 mL 01/09/24 [Rx Confirmed 06/01/24] omeprazole 40 mg capsule,delayed release See Rx Instructions .Route .COMPLEX #90caps 02/24/24 [Rx Confirmed 06/01/24] gabapentin 300 mg capsule 600 mg PO TID nerve pain 04/04/24 [History Confirmed 06/01/24] metolazone 2.5 mg tablet 2.5 mg PO DAILY 04/04/24 [History Confirmed 06/01/24] trazodone 50 mg tablet 50 mg PO HS 04/07/24 [History Confirmed 06/01/24] tramadol 50 mg tablet 50 mg PO Q6HR PRN pain 30 days #30 tabs 04/12/24 [Rx Confirmed 06/01/24] montelukast 10 mg tablet 10 mg PO HS 06/01/24 [History Confirmed 06/01/24] baclofen 20 mg tablet See Rx Instructions .Route .COMPLEX #90 tabs 06/02/24 [Rx Confirmed 06/03/24] carvedilol 6.25 mg tablet See Rx Instructions .Route .COMPLEX #180 tabs 06/02/24[Rx Confirmed 06/03/24] Exam Physical Exam Vital Signs: Temp Pulse Resp BP Pulse Ox O2 Del Method 97.6 F 77 16 102/57 L 97 Room Air 06/01/24 11:40 06/01/24 11:40 06/01/24 11:40 06/01/24 11:40 06/01/24 11:40 06/01/24 11:40 Narrative: Physical Examination: GENERAL APPEARANCE: Alert, pleasant, appropriately oriented HEENT: NCAT, MMM CARDIAC: Normal S1 and S2. No S3, S4 or murmurs. LUNGS: Clear to auscultation bilaterally. no wheeze/rhonchi/rales ABDOMEN: Positive bowel sounds. Soft, nontender. No guarding or signs of an acute abdomen MUSCULOSKELETAL: Moving all extremities appropriately. Generalized weakness noted during motion andstrength testing, most prominent in lower extremities. EXTREMITIES: No clubbing, cyanosis or edema. Anterior swelling noted in bilateral shins with presence of contusion NEUROLOGICAL: No focal motor deficits. CN II-XI grossly intact PSYCHIATRIC: Appropriate mood and affect Results - Hospitalist H&P Lab Results Labs: Laboratory Last Values Corrected WBC 9.4 X10E3/uL (3.8-11.6) 06/01/24 12:05 Uncorrected WBC Count 9.4 x10E3/uL (3.8-11.6) 06/01/24 12:05 RBC 3.72 x10E6/uL (3.60-5.00) 06/01/24 12:05 Hgb 10.5 g/dL (11.8-15.4) L 06/01/24 12:05 Hct 31.8 % (34.0-46.4) L 06/01/24 12:05 MCV 85.4 fl (80-100) 06/01/24 12:05 MCH 28.1 pg (24.7-34.3) 06/01/24 12:05 MCHC 33.0 g/dL (32.0-35.0) 06/01/24 12:05 RDW 14.2 % (11.9-15.3) 06/01/24 12:05 Plt Count 319 x10E3/uL (150-450) 06/01/24 12:05 MPV 8.7 fl (6.3-10.7) 06/01/24 12:05 Neut % (Auto) 79.7 % (.) 06/01/24 12:05 Lymph % (Auto) 10.3 % (.) 06/01/24 12:05 Graham % (Auto) 7.2 % (.) 06/01/24 12:05 Eos % (Auto) 2.3 % (.) 06/01/24 12:05 Baso % (Auto) 0.5 % (.) 06/01/24 12:05 Nucleat RBC Rel Count 0.1 /100 WBC (0-0.5) 06/01/24 12:05 Neut # (Auto) 7.5 x10E3/uL (1.8-7.7) 06/01/24 12:05 Lymph # (Auto) 1.0 x10E3/uL (1.00-4.8) 06/01/24 12:05 Graham # (Auto) 0.7 x10E3/uL (0.0-0.8) 06/01/24 12:05 Eos # (Auto) 0.2 x10E3/uL (0.0-0.45) 06/01/24 12:05 Baso # (Auto) 0.0 x10E3/uL (0.0-0.2) 06/01/24 12:05 Monocyte Dist Width 16.46 % (0.00-20.00) 06/01/24 12:05 PT 10.3 Seconds (9.0-12.9) 06/01/24 12:05 INR 0.9 06/01/24 12:05 APTT 29.9 Seconds (25.1-36.5) 06/01/24 12:05 PHA Creatinine Clear 14.91 06/01/24 12:05 Sodium 138 mmol/L (136-145) 06/01/24 12:05 Potassium 4.0 mmol/L (3.5-5.1) 06/01/24 12:05 Chloride 94 mmol/L (98-107) L 06/01/24 12:05 Carbon Dioxide 33.2 mmol/L (21.0-31.0) H 06/01/24 12:05 Anion Gap 14.8 mEq/L (6.0-15.0) 06/01/24 12:05 BUN 111 mg/dL (7-25) H 06/01/24 12:05 Creatinine 3.04 mg/dL (0.60-1.20) H 06/01/24 12:05 Est GFR (CKD-EPI) 15.569 mL/Min 06/01/24 12:05 Glucose 115 mg/dL (70-100) H 06/01/24 12:05 Calcium 10.2 mg/dL (8.6-10.3) 06/01/24 12:05 Magnesium 3.3 mg/dL (1.9-2.7) H 06/01/24 12:05 Total Bilirubin 0.6 mg/dl (0.3-1.0) 06/01/24 12:05 AST 22 U/L (13-39) 06/01/24 12:05 ALT 16 U/L (7-52) 06/01/24 12:05 Alkaline Phosphatase 53 U/L (34-104) 06/01/24 12:05 Troponin I High Sens 12 ng/L (0-15) 06/01/24 12:05 Total Protein 7.4 gm/dL (6.4-8.9) 06/01/24 12:05 Albumin 4.4 gm/dL (3.5-5.7) 06/01/24 12:05 Globulin 3.0 gm/dL 06/01/24 12:05 Albumin/Globulin Ratio 1.5 06/01/24 12:05 TSH 3rd Generation 5.13 uIU/mL (0.45-5.33) 06/01/24 12:05 Assessment & Plan Assessment/Plan (1) Styia-gu-osqygnp kidney injury: (2) Contusion: (3) Generalized weakness: Plan . IP vs OBS Justification Based on differential dx, clinical care plan, and risk of adverse events, if untreated, in my clinical judgement this patient requires an acute care setting as: INPATIENT because of an expectation ofan over 2 midnight stay. Estimated length of stay (# of days): 3 <Statement entered by Isaiah Mejia DO - 06/04/24 19:50> I personally saw and examined patient at the bedside this evening. Case was discussed coordinated conjunction with pediatrician/medical doctor. I agree with management as noted therein. The patient is again presenting with relative hypotension, weakness and seemingly overdiuresis. Will place all home diuretics and antihypertensives at the moment on hold given significant LATANYA and reduced GFR at present. Additionally due to this reduced renal capacity will hold renally metabolized se dating medications which include high-dose gabapentin and baclofen. Documented By: Isaiah Mejia DO 06/01/24 14 39 Signed By: <Electronically signed by Isaiah Mejia DO> 06/04/241949 <Electronically signed by MD AMBER Carver> 06/01/24 [address] [facility] Work Phone: [phone]) 253-433702-02-[address] [address] Hospitalist Progress Note Signed Patient: Renuka Owen MR#: [id number] : 1950 Acct:[id number] Age/Sex: 73 / F Adm Date: 5 Loc: Room: [address] [place] [address] Type: ADM IN Attending Dr: Isaiah Mejia DO Copies to: ~ Date of Service: 06/04/2024 Subjective Subjective Narrative: Patient was seen and examined the bedside this evening. She received her baclofen last evening after being held on admission. She has now been also placed back on her gabapentin. She states this gabapentin is not necessarily helping her longstanding neuropathy. Discussed potentially going up on dose butconcerns initially with LATANYA were of toxicity of gabapentin/baclofen with reducedGFR. With resumption of these home medications last night she states she still did not sleep well despite her 50 mgtrazodone also being resumed. She request something more for sleep so she can have a good rest thisevening. I discussed options further with her including Ambien which she states makes her have vivid dreams and does not want to to take this medication. Physical Examination: GENERAL APPEARANCE: Alert, pleasant, appropriately oriented HEENT: NCAT, MMM CARDIAC: Normal S1 and S2. No S3, S4 or murmurs. LUNGS: Clear to auscultation bilaterally. no wheeze/rhonchi/rales ABDOMEN: Positive bowel sounds. Soft, nontender. No guarding or signs of an acute abdomen MUSCULOSKELETAL: Moving all extremities appropriately EXTREMITIES: No clubbing, cyanosis or edema. Anterior swelling noted in bilateral shins with presence of contusion NEUROLOGICAL: No focal motor deficits. CN II-XI grossly intact PSYCHIATRIC: Appropriate mood and affect Assessment: Acute kidney injury on chronic kidney disease stage III Contusion Generalized Weakness Chronic congestive heart failure with reduced ejection fraction Mitral regurgitation Orthostatic hypotension Anemia Chemotherapy induced peripheral neuropathy GERD Insomnia Renal function remains stable after 2 days of IV fluid and now resuming antihypertensive medications and diuretics. Her blood pressure is trending moretowards normotensive range and we will continue to monitor this as she has a documented history of orthostatic hypotension. Unfortunately medications to treat her GDMT for HFrEF and highly symptomatic neuropathy are essential in order to maintain and optimize these conditions. PT/OT has evaluated the patient and she is agreeable and looking at care home facilities at discharge. Medically she will be likely ready for this as early as tomorrow. Unfortunately she has ongoing insomnia and difficulty sleeping despite the resumption of her previously prescribed meds. I discussed with her that there is slight room to increase her gabapentin or potentially she may respond better to Lyrica or other tricyclic antidepressant to treat nerve related pain. Ultimately she could not sleep last night despite her home baclofen and trazodone. I willincrease her trazodone to 100 mg nightly to be given with hernormal p.m. meds this evening and not at 2200. Similarly baclofen should also be given with evening meds and not later at 2200. Will stop gabapentin as likely highly ineffective with her chronic regimen and I have provided an on IV push of Benadryl as needed for insomnia persisting past these increased doses this evening Diet: Renal Diet No Dialysis Code Status: Full Code DVT Prophylaxis: Lovenox Exam Physical Exam Vital Signs: Temp Pulse Resp BP Pulse Ox O2 Del Method 98.9 F 84 18 123/75 99 Room Air 06/04/24 16:41 06/04/24 16:41 06/04/24 16:41 06/04/24 16:41 06/04/24 16:41 06/04/24 16:41 Objective Lab Results 06/03/24 06:06 06/04/24 06:09 Meds Allergies and Active Meds Allergies atorvastatin (From Lipitor) Allergy (Unknown, Verified 06/01/24 11:40) Hives levofloxacin (Levaquin) Allergy (Unknown, Verified 06/01/24 11:40) Unknown Reaction Penicillins Allergy (Verified 06/01/24 11:40) Hives Active Meds: Active Medications Generic Name Dose Route Start Last Admin Trade Name Freq PRN Reason Stop Dose Admin Acetaminophen 500 mg 06/01/24 17:08 06/04/24 14:42 Acetaminophen 500 Mg Tablet PO 06/01/25 17:07 500 mg Q4H PRN Administration Pain Aspirin 81 mg 06/02/24 09:00 06/04/24 08:24 Aspirin 81 Mg Tablet. PO 06/02/25 08:59 81 mg DAILY JUSTYN Administration Baclofen 20 mg 06/04/24 21:00 Baclofen 20 Mg Tablet PO 06/04/25 20:59 QPM JUSTYN Carvedilol 3.125 mg 06/04/24 17:00 06/04/24 16:42 Carvedilol 3.125 Mg Tablet PO 06/04/25 16:59 3.125 mg BID.WITH.MEALS JUSTYN Administration Diphenhydramine HCl 25 mg 06/04/24 19:42 Diphenhydramine 50 Mg/Ml Vial IV-PUSH 06/04/25 21:59 QHS PRN Insomnia refractory to baclofen/trazadone Enoxaparin Sodium 30 mg 06/02/24 10:00 06/04/24 09:50 Enoxaparin 30 Mg/0.3 Ml Syringe SUBCUT 06/02/25 09:59 Not Given DAILY@10 JUSTYN Fluticasone Propionate 2 spray 06/02/24 09:00 06/03/24 11:32 Fluticasone Propionate Hurricane 120 Hurricane/16 Gm Bottle NARES-BOTH 06/02/25 08:59 2 spray DAILY PRN Administration NASAL CONGESTION Gabapentin 600 mg 06/03/24 14:00 06/04/24 12:59 Gabapentin 600 Mg Tablet PO 06/03/25 13:59 600 mg TID JUSTYN Administration Montelukast Sodium 10 mg 06/01/24 22:00 06/03/24 20:52 Montelukast 10 Mg Tablet PO 06/01/25 21:59 10 mg HS JUSTYN Administration Pantoprazole Sodium 40 mg 06/02/24 07:30 06/04/24 16:42 Pantoprazole 40 Mg Tablet. PO 06/02/25 07:29 40 mg BID.AC.BKFAST.SUPPER JUSTYN Administration Sodium Chloride 0 ml 06/01/24 11:39 06/01/24 12:07 Sodium Chloride 0.9 % 10 Ml Syringe IV-PUSH 06/01/25 11:38 10 ml PRN PRN Administration Flush Torsemide 20 mg 06/05/24 08:00 Torsemide 20 Mg Tablet PO 06/05/25 07:59 DAILY@0800 JUSTYN Trazodone HCl 100 mg 06/04/24 19:45 Trazodone 100 Mg Tablet PO 06/04/25 19:44 [facility] A&P - Hospitalist Assessment/Plan (1) Pdlqt-rw-ougdlpc kidney injury: (2) Contusion: (3) Generalized weakness: Plan . Documented By: Isaiah Mejia DO 06/04/24 19 52 Signed By: 06/04/241999 [facility]02-02-2025 [place] [address] Hospitalist Progress Note Signed Patient: Renuka Owen MR#: [id number] : 1950 Acct:[id number] Age/Sex: 73 / F Adm Date: 5 Loc: Room: [address] [place] [address] Type: ADM IN Attending Dr: Isaiah Mejia DO Copies to: ~ Date of Service: 06/03/2024 Subjective Subjective Narrative: Renuka Owen is a 73 y.o. female with a PMH of CKD, anemia, orthostatic hypotension, mitral regurgitation, hypertension, chronic HFrEF, unsteady gait, cervical spondylosis with radiculopathy, degenerative arthritis, chronic venous insufficiency, chemotherapy induced peripheral neuropathy, degenerative disc disease, incontinence, GERD, left bundle branch block, vascular access prohibited in left upper extremity, presacral mass with excision in 2019, low back pain, osteoporosis, breast cancer with left sided mastectomy, and cholecystectomy who initially presented to [facility] on 06/01/24 for concerns regarding a fall and LATANYA. Patient was seen and examined while sitting upright and resting comfortably in her chair. She notesthat she is doing alright today. Her kidney function has improved after IV hydration with BUN 42,Creatinine 1.03, eGFR 57.057. She states that she has not been able to eat as much due to mild stomach upset. Patient also reports that she is not sleeping well due to nerve pain and nasal congestion. She is wondering if she would be able to restart her home gabapentinand nasal spray today. Blood pressure has improved to 129/78. Patient denies anydysuria, hematuria, or abnormal discharge. Nephrology has been consulted. Patient is here for further evaluation. Physical Examination: GENERAL APPEARANCE: Alert, pleasant, appropriately oriented HEENT: NCAT, MMM CARDIAC: Normal S1 and S2. No S3, S4 or murmurs. LUNGS: Clear to auscultation bilaterally. no wheeze/rhonchi/rales ABDOMEN: Positive bowel sounds. Soft, nontender. No guarding or signs of an acute abdomen MUSCULOSKELETAL: Moving all extremities appropriately EXTREMITIES: No clubbing, cyanosis or edema. Anterior swelling noted in bilateral shins with presence of contusion NEUROLOGICAL: No focal motor deficits. CN II-XI grossly intact PSYCHIATRIC: Appropriate mood and affect Assessment: Acute kidney injury on chronic kidney disease stage III Contusion Generalized Weakness Chronic congestive heart failure with reduced ejection fraction Mitral regurgitation Orthostatic hypotension Anemia Chemotherapy induced peripheral neuropathy GERD Plan: - WBC 9.4 - Hgb 10.5, Hct 31.8, MCV 85.4 - Na 138, K 4, Cl 94 - BUN 111, Creatinine 3.04, eGFR 15.569; 06/03/24 BUN 42, Creatinine 1.03, eGFR 57.057 - Glucose 115 - Mg 3.3 - TSH 5.13 - Cervical Spine CT demonstrated no cervical spine fracture - Head CT showed no acute intracranial abnormality - Chest X ray revealed chronic interstitial change without acute process - Knee X ray demonstrated left TKA without radiographic complication - Tibia/Fibula X Ray showed partially visualized right TKA without radiographic complication. Remote deformity involving the mid fibula suggestive of prior fracture. Ankle mortise appears intact. Soft tissue swelling noted predominantlyanterior. Left tib/fib mild soft tissue swelling primarily anter iorly with possible underlying hematoma. No acute bony process is seen. Ankle mortise appears intact. Plantar spurring - EKG demonstrates sinus rhythm with premature ventricular complexes or fusion complexes. Left bundle branch block - Apply Telemetry - IV fluids - Continue to monitor kidney function with daily labs - Consider Nephrology consult, appreciate recommendations - Urinalysis pending - Consider Neurology consult due to generalized weakness, appreciate recommendations - PT/OT consult, appreciate recommendations - Nephrology consult, appreciate recommendations Diet: Renal Diet No Dialysis Code Status: Full Code DVT Prophylaxis: Lovenox Exam Physical Exam Vital Signs: Temp Pulse Resp BP Pulse Ox O2 Del Method 98.3 F 83 18 129/78 99 Room Air 06/03/24 08:05 06/03/24 08:05 06/03/24 08:05 06/03/24 08:05 06/03/24 08:05 06/03/24 08:05 Narrative: Physical Examination: GENERAL APPEARANCE: Alert, pleasant, appropriately oriented HEENT: NCAT, MMM CARDIAC: Normal S1 and S2. No S3, S4 or murmurs. LUNGS: Clear to auscultation bilaterally. no wheeze/rhonchi/rales ABDOMEN: Positive bowel sounds. Soft, nontender. No guarding or signs of an acute abdomen MUSCULOSKELETAL: Moving all extremities appropriately. Generalized weakness noted during motion andstrength testing, most prominent in lower extremities. EXTREMITIES: No clubbing, cyanosis or edema. Anterior swelling noted in bilateral shins with presence of contusion NEUROLOGICAL: No focal motor deficits. CN II-XI grossly intact PSYCHIATRIC: Appropriate mood and affect Objective Lab Results 06/03/24 06:06 06/04/24 06:09 Meds Allergies and Active Meds Allergies atorvastatin (From Lipitor) Allergy (Unknown, Verified 06/01/24 11:40) Hives levofloxacin (Levaquin) Allergy (Unknown, Verified 06/01/24 11:40) Unknown Reaction Penicillins Allergy (Verified 06/01/24 11:40) Hives Active Meds: Active Medications Generic Name Dose Route Start Last Admin Trade Name Freq PRN Reason Stop Dose Admin Acetaminophen 500 mg 06/01/24 17:08 06/03/24 05:18 Acetaminophen 500 Mg Tablet PO 06/01/25 17:07 500 mg Q4H PRN Administration Pain Aspirin 81 mg 06/02/24 09:00 06/03/24 08:08 Aspirin 81 Mg Tablet. PO 06/02/25 08:59 81 mg DAILY JUSTYN Administration Enoxaparin Sodium 30 mg 06/02/24 10:00 06/03/24 09:05 Enoxaparin 30 Mg/0.3 Ml Syringe SUBCUT 06/02/25 09:59 Not Given DAILY@10 JUSTYN Fluticasone Propionate 2 spray 06/02/24 09:00 Fluticasone Propionate Hurricane 120 Hurricane/16 Gm Bottle NARES-BOTH 06/02/25 08:59 DAILY PRN NASAL CONGESTION Melatonin 10 mg 06/01/24 18:01 06/02/24 20:42 Melatonin 5 Mg Tablet PO 06/01/25 18:00 10 mg QHS PRN Administration Sleep Montelukast Sodium 10 mg 06/01/24 22:00 06/02/24 20:42 Montelukast 10 Mg Tablet PO 06/01/25 21:59 10 mg HS JUSTYN Administration Pantoprazole Sodium 40 mg 06/02/24 07:30 06/03/24 05:19 Pantoprazole 40 Mg Tablet. PO 06/02/25 07:29 40 mg BID.AC.BKFAST.SUPPER JUSTYN Administration Sodium Chloride 0 ml 06/01/24 11:39 06/01/24 12:07 Sodium Chloride 0.9 % 10 Ml Syringe IV-PUSH 06/01/25 11:38 10 ml PRN PRN Administration Flush Trazodone HCl 50 mg 06/01/24 22:00 06/02/24 20:42 Trazodone 50 Mg Tablet PO 06/01/25 21:59 50 mg HS JUSTYN Administration A&P - Hospitalist Assessment/Plan (1) Exqxi-te-kqhhdjt kidney injury: (2) Contusion: (3) Generalized weakness: Plan . I personally saw and examined patient at bedside today. Case was discussed and coordinated in conjunction with pediatrician/medical doctor. I agree with management as noted therein. Nephrology will be consulted to assist in hypertensive and diuretic management. Maintain IV fluid hydration and resume medications gradually as tolerated as undoubtedly has need for GDMT for reduced ejection fraction heart failure will have some diuretic needed at baseline to be titrated gradually. Documented By: Isaiah Mejia DO 06/03/2402 27 Signed By: 06/04/24195106/03/[address] [place], [place] [id number] [place] [address] Hospitalist H&P Signed Patient: Renuka Owen MR#: [id number] : 1950 Acct:[id number] Age/Sex: 73 / F Adm Date: 5 Loc: Room: [address] [place] [address] Type: ADM IN Attending Dr: Isaiah Mejia DO Copies to: DO Mathew Jama MD, RES Isaiah Mejia DO~ HPI DATE OF EXAMINATION: 06/01/24 CHIEF COMPLAINT: Fall, LATANYA HISTORY OF PRESENT ILLNESS: Renuka Owen is a 73 y.o. female with a PMH of CKD, anemia, orthostatic hypotension, mitral regurgitation, hypertension, chronic HFrEF, unsteady gait, cervical spondylosis with radiculopathy, degenerative arthritis, chronic venous insufficiency, chemotherapy induced peripheral neuropathy, degenerative disc disease, incontinence, GERD, left bundle branch block, vascular access prohibited in left upper extremity, presacral mass with excision in 2020, low back pain, osteoporosis, breast cancer with left sided mastectomy, and cholecystectomy who initially presented to [facility] on 06/01/24 for concerns regarding a fall and LATANYA. Patient states that she experienced a fall prior to her hospital visit when she tripped getting into the car. She notes that she struck her head as well as her anterior shins during the fall. She denies any dizziness, lightheadedness, or loss of consciousness. She complains of generalized weakness and notes a historyof neuropathy and previous falls for which she is scheduled her Neurologist, , at the end of June. Patient describes her symptoms as my legs feeling like rubber and also mentions occasional tremors. She complains of headache and pain in her shins at present. Denies fever, chills, chest pain, shortness of breath, nausea, vomiting, diarrhea, or constipation. Denies tobacco, alcohol, or other drug use. Denies history of stroke, DVT, or blood thinner use. Initial workup in the ED revealed WBC 9.4, Hgb 10.5, Hct 31.8, MCV 85.4, Na 138,K 4, Cl 94, BUN 111, Creatinine 3.04, eGFR 15.569, Glucose 115, Mg 3.3, TSH 5.13. Cervical Spine CT demonstrated no cervical spine fracture. Head CT showed no acute intracranial abnormality. Chest X ray revealed chronicinterstitial change without acute process. Knee X ray demonstrated left TKA without radiographic complication. Tibia/Fibula X Ray showed partially visualized right TKA without radiographic complication. Remote deformity involving the mid fibulasuggestive of prior fracture. Ankle mortise appears intact. Soft tissue swellingnoted predominantly anterior. Left tib/fib mild soft tissue swelling primarily anteriorly with possible underlying hematoma. No acute bony process is seen. Ankle mortise appears intact. Plantar spurring. EKG demonstrates sinus rhythm with premature ventricular complexes or fusion complexes. Left bundle branch block. She is here for further evaluation. Physical Examination: GENERAL APPEARANCE: Alert, pleasant, appropriately oriented HEENT: NCAT, MMM CARDIAC: Normal S1 and S2. No S3, S4 or murmurs. LUNGS: Clear to auscultation bilaterally. no wheeze/rhonchi/rales ABDOMEN: Positive bowel sounds. Soft, nontender. No guarding or signs of an acute abdomen MUSCULOSKELETAL: Moving all extremities appropriately. Generalized weakness noted during motion andstrength testing, most prominent in lower extremities. EXTREMITIES: No clubbing, cyanosis or edema. Anterior swelling noted in bilateral shins with presence of contusion NEUROLOGICAL: No focal motor deficits. CN II-XI grossly intact PSYCHIATRIC: Appropriate mood and affect Assessment: Acute kidney injury on chronic kidney disease stage III Contusion Generalized Weakness Chronic congestive heart failure with reduced ejection fraction Mitral regurgitation Orthostatic hypotension Anemia Chemotherapy induced peripheral neuropathy GERD Plan: - WBC 9.4 - Hgb 10.5, Hct 31.8, MCV 85.4 - Na 138, K 4, Cl 94 - BUN 111, Creatinine 3.04, eGFR 15.569 - Glucose 115 - Mg 3.3 - TSH 5.13 - Cervical Spine CT demonstrated no cervical spine fracture - Head CT showed no acute intracranial abnormality - Chest X ray revealed chronic interstitial change without acute process - Knee X ray demonstrated left TKA without radiographic complication - Tibia/Fibula X Ray showed partially visualized right TKA without radiographic complication. Remote deformity involving the mid fibula suggestive of prior fracture. Ankle mortise appears intact. Soft tissue swelling noted predominantlyanterior. Left tib/fib mild soft tissue swelling primarily anter iorly with possible underlying hematoma. No acute bony process is seen. Ankle mortise appears intact. Plantar spurring - EKG demonstrates sinus rhythm with premature ventricular complexes or fusion complexes. Left bundle branch block - Apply Telemetry - IV fluids - Continue to monitor kidney function with daily labs - Consider Nephrology consult, appreciate recommendations - Urinalysis pending - Consider Neurology consult due to generalized weakness, appreciate recommendations - PT/OT consult, appreciate recommendations Diet: Renal Diet No Dialysis Code Status: Full Code DVT Prophylaxis: Lovenox Review of Systems Review of Systems All other systems reviewed & are negative unless noted below or in HPI [facility] Medical History Chronic kidney disease Unsteady gait when walking Anemia Orthostatic hypotension Mitral regurgitation Hypertension Chronic HFrEF (heart failure with reduced ejection fraction) Occipital headache Unsteadiness on feet Cervical spondylosis with radiculopathy Neck pain Degenerative arthritis of left foot Chronic venous insufficiency of lower extremity Nocturnal leg cramps Chemotherapy-induced peripheral neuropathy Peripheral polyneuropathy Neuropathy DDD (degenerative disc disease) Incontinence urinary incontinence GERD (gastroesophageal reflux disease) Left bundle branch block Vascular access prohibited in left upper extremity Presacral mass Excision 2019 Arthritis Low back pain Osteoporosis Breast cancer left Surgical History S/P lumbar fusion (~04/2023) H/O colonoscopy (~01/2018) History of phacoemulsification of cataract of both eyes with intraocular lens implantation 2021 History of appendectomy History of hysterectomy Hx of decompressive lumbar laminectomy 2021 History of total bilateral knee replacement one month between procedures History of left mastectomy History of repair of left rotator cuff Hx of cholecystectomy Family History Mother Breast cancer Father Testicular cancer Brother Leukemia Social History Smoking Status: Never smoker Substance Use Type: None Social History Comments: mobile home Meds Medications and Allergies Allergies atorvastatin (From Lipitor) Allergy (Unknown, Verified 06/01/24 11:40) Hives levofloxacin (Levaquin) Allergy (Unknown, Verified 06/01/24 11:40) Unknown Reaction Penicillins Allergy (Verified 06/01/24 11:40) Hives Home Medications calcium 600 mg (as carbonate)-vitamin D3 10 mcg (400 unit) tablet (Calcium 600 +D(3)) 1 tab PO BID osteoporosis 09/24/21 [History Confirmed 06/01/24] melatonin 10 mg tablet 10 mg PO HS PRN Sleep 03/16/22 [History Confirmed 06/01/24] enalapril maleate 2.5 mg tablet 2.5 mg PO BID 03/26/23 [History Confirmed 06/01/24] torsemide 20 mg tablet 20 mg PO DAILY 03/26/23 [History Confirmed 06/01/24] aspirin 81 mg tablet,delayed release 81 mg PO DAILY 04/09/23 [History Confirmed 06/01/24] acetaminophen 500 mg tablet 500 mg PO Q4H PRN Pain #0 tabs 04/19/23 [Rx Confirmed 06/01/24] fluticasone propionate 50 mcg/actuation nasal spray,suspension See Rx Instructions .Route .COMPLEX #48 mL 01/09/24 [Rx Confirmed 06/01/24] omeprazole 40 mg capsule,delayed release See Rx Instructions .Route .COMPLEX #90caps 10/24/24 [Rx Confirmed 06/01/24] gabapentin 300 mg capsule 600 mg PO TID nerve pain 04/04/24 [History Confirmed 06/01/24] metolazone 2.5 mg tablet 2.5 mg PO DAILY 04/04/24 [History Confirmed 06/01/24] trazodone 50 mg tablet 50 mg PO HS 04/07/24 [History Confirmed 06/01/24] tramadol 50 mg tablet 50 mg PO Q6HR PRN pain 30 days #30 tabs 04/12/24 [Rx Confirmed 06/01/24] montelukast 10 mg tablet 10 mg PO HS 06/01/24 [History Confirmed 06/01/24] baclofen 20 mg tablet See Rx Instructions .Route .COMPLEX #90 tabs 06/02/24 [Rx Confirmed 06/03/24] carvedilol 6.25 mg tablet See Rx Instructions .Route .COMPLEX #180 tabs 06/02/24[Rx Confirmed 06/03/24] Exam Physical Exam Vital Signs: Temp Pulse Resp BP Pulse Ox O2 Del Method 97.6 F 77 16 102/57 L 97 Room Air 06/01/24 11:40 06/01/24 11:40 06/01/24 11:40 06/01/24 11:40 06/01/24 11:40 06/01/24 11:40 Narrative: Physical Examination: GENERAL APPEARANCE: Alert, pleasant, appropriately oriented HEENT: NCAT, MMM CARDIAC: Normal S1 and S2. No S3, S4 or murmurs. LUNGS: Clear to auscultation bilaterally. no wheeze/rhonchi/rales ABDOMEN: Positive bowel sounds. Soft, nontender. No guarding or signs of an acute abdomen MUSCULOSKELETAL: Moving all extremities appropriately. Generalized weakness noted during motion andstrength testing, most prominent in lower extremities. EXTREMITIES: No clubbing, cyanosis or edema. Anterior swelling noted in bilateral shins with presence of contusion NEUROLOGICAL: No focal motor deficits. CN II-XI grossly intact PSYCHIATRIC: Appropriate mood and affect Results - Hospitalist H&P Lab Results Labs: Laboratory Last Values Corrected WBC 9.4 X10E3/uL (3.8-11.6) 06/01/24 12:05 Uncorrected WBC Count 9.4 x10E3/uL (3.8-11.6) 06/01/24 12:05 RBC 3.72 x10E6/uL (3.60-5.00) 06/01/24 12:05 Hgb 10.5 g/dL (11.8-15.4) L 06/01/24 12:05 Hct 31.8 % (34.0-46.4) L 06/01/24 12:05 MCV 85.4 fl (80-100) 06/01/24 12:05 MCH 28.1 pg (24.7-34.3) 06/01/24 12:05 MCHC 33.0 g/dL (32.0-35.0) 06/01/24 12:05 RDW 14.2 % (11.9-15.3) 06/01/24 12:05 Plt Count 319 x10E3/uL (150-450) 06/01/24 12:05 MPV 8.7 fl (6.3-10.7) 06/01/24 12:05 Neut % (Auto) 79.7 % (.) 06/01/24 12:05 Lymph % (Auto) 10.3 % (.) 06/01/24 12:05 Graham % (Auto) 7.2 % (.) 06/01/24 12:05 Eos % (Auto) 2.3 % (.) 06/01/24 12:05 Baso % (Auto) 0.5 % (.) 06/01/24 12:05 Nucleat RBC Rel Count 0.1 /100 WBC (0-0.5) 06/01/24 12:05 Neut # (Auto) 7.5 x10E3/uL (1.8-7.7) 06/01/24 12:05 Lymph # (Auto) 1.0 x10E3/uL (1.00-4.8) 06/01/24 12:05 Graham # (Auto) 0.7 x10E3/uL (0.0-0.8) 06/01/24 12:05 Eos # (Auto) 0.2 x10E3/uL (0.0-0.45) 06/01/24 12:05 Baso # (Auto) 0.0 x10E3/uL (0.0-0.2) 06/01/24 12:05 Monocyte Dist Width 16.46 % (0.00-20.00) 06/01/24 12:05 PT 10.3 Seconds (9.0-12.9) 06/01/24 12:05 INR 0.9 06/01/24 12:05 APTT 29.9 Seconds (25.1-36.5) 06/01/24 12:05 PHA Creatinine Clear 14.91 06/01/24 12:05 Sodium 138 mmol/L (136-145) 06/01/24 12:05 Potassium 4.0 mmol/L (3.5-5.1) 06/01/24 12:05 Chloride 94 mmol/L (98-107) L 06/01/24 12:05 Carbon Dioxide 33.2 mmol/L (21.0-31.0) H 06/01/24 12:05 Anion Gap 14.8 mEq/L (6.0-15.0) 06/01/24 12:05 BUN 111 mg/dL (7-25) H 06/01/24 12:05 Creatinine 3.04 mg/dL (0.60-1.20) H 06/01/24 12:05 Est GFR (CKD-EPI) 15.569 mL/Min 06/01/24 12:05 Glucose 115 mg/dL (70-100) H 06/01/24 12:05 Calcium 10.2 mg/dL (8.6-10.3) 06/01/24 12:05 Magnesium 3.3 mg/dL (1.9-2.7) H 06/01/24 12:05 Total Bilirubin 0.6 mg/dl (0.3-1.0) 06/01/24 12:05 AST 22 U/L (13-39) 06/01/24 12:05 ALT 16 U/L (7-52) 06/01/24 12:05 Alkaline Phosphatase 53 U/L (34-104) 06/01/24 12:05 Troponin I High Sens 12 ng/L (0-15) 06/01/24 12:05 Total Protein 7.4 gm/dL (6.4-8.9) 06/01/24 12:05 Albumin 4.4 gm/dL (3.5-5.7) 06/01/24 12:05 Globulin 3.0 gm/dL 06/01/24 12:05 Albumin/Globulin Ratio 1.5 06/01/24 12:05 TSH 3rd Generation 5.13 uIU/mL (0.45-5.33) 06/01/24 12:05 Assessment & Plan Assessment/Plan (1) [id number] kidney injury: (2) Contusion: (3) Generalized weakness: Plan . IP vs OBS Justification Based on differential dx, clinical care plan, and risk of adverse events, if untreated, in my clinical judgement this patient requires an acute care setting as: INPATIENT because of an expectation ofan over 2 midnight stay. Estimated length of stay (# of days): 3 I personally saw and examined patient at the bedside this evening. Case was discussed coordinated conjunction with pediatrician/medical doctor. I agree with management as noted therein. The patient is again presenting with relative hypotension, weakness and seemingly overdiuresis. Will place all home diuretics and antihypertensives at the moment on hold given significant LATANYA and reduced GFR at present. Additionally due to this reduced renal capacity will hold renally metabolized se dating medications which include high-dose gabapentin and baclofen. Documented By: Isaiah Mejia DO 06/01/24 14 39 Signed By: 06/04/24194906/01/[address] [place], [place] [id number] Progress note Author Sherin Arellano [facility] Date/TimeFebruary 2024 11:36am [place] [address] Nephrology Progress Note Signed Patient: Renuka Owen MR#: [id number] : 1950 Acct:[id number] Age/Sex: 73 / F Adm Date: 5 Loc: Room: 0T4906-3 Type: ADM IN Attending Dr: Isaiah Mejia DO Copies to: ~ Date of Service: 06/04/2024 Subjective Subjective Narrative: This is a 73-year-old female with medical history of CKD, anemia, orthostatic hypotension, mitral regurgitation, HFrEF, HTN, cervical spondylosis was presented to the emergency room after mechanical fall. Patient was recently admitted at [facility] for LATANYA and was seen by our service. Initial evaluation emergency room showed anemia with hemoglobin 10.5 g/dL and LATANYA with elevated serum creatinine 2.0 mg/dL. Patient had a CT head which showed no acute finding. Patient was started on IV fluid resuscitation and her home dose of the diuretics and antihypertensive medication including enalapril and carvedilol were held. Patient denies any history of a viral infection or nausea vomiting diarrhea prior to hospitalization. Nephrology is consulted for LATANYA on CKD management. Interim history Patient was seen and examined bedside. She is feeling better today denies any chest pain palpation cough nausea vomiting diarrhea and shortness of breath Exam Physical Exam Vital Signs: Temp Pulse Resp BP Pulse Ox O2 Del Method 98.7 F 88 16 126/78 99 Room Air 06/04/24 08:23 06/04/24 11:22 06/04/24 11:22 06/04/24 11:22 06/04/24 11:22 06/04/24 11:22 Narrative: General: Appears comfortable and not in distress Heart: S1-S2, no rub Lung: Bilateral air entry, no wheezing or crackles Abdomen: Soft, positive bowel sounds Extremities: No edema, no cyanosis Head: Atraumatic, normocephalic Ear: No gross hearing Deficit or external ear redness Eyes: No pallor or redness Neck: No JVD or visible mass Skin: No rashes , warm to touch TOP FORMER: Awake,Alert, following simple command Musculoskeletal: No swelling or limitation of movement of the large joints Psychiatric: Cooperative, normal mood and affect Objective Intake and Output I&O: Intake & Output 06/01/24 06/02/24 06/03/24 06/04/24 23:59 23:59 23:59 23:59 Intake Total 400 / 400 2100 / 2100 2200 / 2200 200 / 200 Balance 400 / 400 2100 / 2100 2200 / 2200 200 / 200 Weight 70.5 kg 70.5 kg 70.3 kg Meds and Allergies Meds: Active Medications Acetaminophen (Acetaminophen 500 Mg Tablet) 500 mg PO Q4H PRN PRN Reason: Pain Stop: 06/01/25 17:07 Last Admin: 06/04/24 08:24 Dose: 500 mg Aspirin (Aspirin 81 Mg Tablet.) 81 mg PO DAILY [facility] Stop: 06/02/25 08:59 Last Admin: 06/04/24 08:24 Dose: 81 mg Baclofen (Baclofen 20 Mg Tablet) 20 mg PO QHS [facility] Stop: 06/03/25 21:59 Last Admin: 06/03/24 21:23 Dose: 20 mg Carvedilol (Carvedilol 6.25 Mg Tablet) 6.25 mg PO BID.WITH.MEALS [facility] Stop: 06/04/25 10:59 Last Admin: 06/04/24 11:23 Dose: 6.25 mg Enoxaparin Sodium (Enoxaparin 30 Mg/0.3 Ml Syringe) 30 mg SUBCUT DAILY@10 [facility] Stop: 06/02/25 09:59 Last Admin: 06/04/24 09:50 Dose: Not Given Fluticasone Propionate (Fluticasone Propionate Hurricane 120 Hurricane/16 Gm Bottle) 2 spray NARES-BOTH DAILY PRN PRN Reason: NASAL CONGESTION Stop: 06/02/25 08:59 Last Admin: 06/03/24 11:32 Dose: 2 spray Gabapentin (Gabapentin 600 Mg Tablet) 600 mg PO TID [facility] Stop: 06/03/25 13:59 Last Admin: 06/04/24 08:24 Dose: 600 mg Melatonin (Melatonin 5 Mg Tablet) 10 mg PO QHS PRN PRN Reason: Sleep Stop: 06/01/25 18:00 Last Admin: 06/03/24 20:52 Dose: 10 mg Montelukast Sodium (Montelukast 10 Mg Tablet) 10 mg PO [facility] Stop: 06/01/25 21:59 Last Admin: 06/03/24 20:52 Dose: 10 mg Pantoprazole Sodium (Pantoprazole 40 Mg Tablet.) 40 mg PO BID.AC.BKFAST.SUPPER [facility] Stop: 06/02/25 07:29 Last Admin: 06/04/24 05:32 Dose: 40 mg Sodium Chloride (Sodium Chloride 0.9 % 10 Ml Syringe) 0 ml IV-PUSH PRN PRN PRN Reason: Flush Stop: 06/01/25 11:38 Last Admin: 06/01/24 12:07 Dose: 10 ml Trazodone HCl (Trazodone 50 Mg Tablet) 50 mg PO [facility] Stop: 06/01/25 21:59 Last Admin: 06/03/24 20:52 Dose: 50 mg Allergies atorvastatin (From Lipitor) Allergy (Unknown, Verified 06/01/24 11:40) Hives levofloxacin (Levaquin) Allergy (Unknown, Verified 06/01/24 11:40) Unknown Reaction Penicillins Allergy (Verified 06/01/24 11:40) Hives Results - Nephrology Labs 06/03/24 06:06 06/04/24 06:09 Labs: 06/04/24 06:09 BUN 31 H Creatinine 1.21 H Radiology Impressions Impressions - last 24 hours: Any impression(s) listed above is documentation that was entered by the reading physician into a diagnostic report(s) for Renuka Owen. I have reviewed the report(s) and am incorporating any findings in the treatment plan of this patient where applicable. A&P - Nephrology Assessment/Plan (1) [id number] kidney injury: Assessment/Problem Details: She has LATANYA likely due to the hypovolemia. Renal function improved with IV fluid resuscitation. Herrenal ultrasound showed unremarkable kidneys. (2) Hypokalemia: Assessment/Problem Details: She has hypokalemia due to the diuretic induced renal potassium wasting (3) Chronic kidney disease: Assessment/Problem Details: She has CKD due to the chronic cardiorenal syndrome and hypertension with baseline serum run around1.0 mg/dL. (4) Hypertension: Assessment/Problem Details: Her blood pressure was low on presentation. She was taking carvedilol, metolazone, torsemide and enalapril at home. (5) Anemia: Assessment/Problem Details: Hemoglobin is below the goal. (6) Chronic HFrEF (heart failure with reduced ejection fraction): Assessment/Problem Details: She appears to be well compensated. She was taking metolazone and torsemide at home. Plan * Will resume torsemide and give 10 mg today and 20 mg starting tomorrow. * Will continue to hold home dose of the metolazone and enalapril * Will decrease the dose of carvedilol to 3.125 mg twice daily to avoid hypotension. * Check renal function daily monitor input output * Documented By: Sherin Arellano MD 06/04/24 1131 Signed By: <Electronically signed by Sherin Arellano MD> 06/04/24 1136 [facility] Work Phone: 1(304) 473-832002-02-2025 [place] [address] Nephrology Progress Note Signed Patient: Renuka Owen MR#: [id number] : 1950 Acct:[id number] Age/Sex: 73 / F Adm Date: 5 Loc: 3T Room: 7S6557-5 Type: ADM IN Attending Dr: Isaiah Mejia DO Copies to: ~ Date of Service: 06/04/2024 Subjective Subjective Narrative: This is a 73-year-old female with medical history of CKD, anemia, orthostatic hypotension, mitral regurgitation, HFrEF, HTN, cervical spondylosis was presented to the emergency room after mechanical fall. Patient was recently admitted at [facility] for LATANYA and was seen by our service. Initial evaluation emergency room showed anemia with hemoglobin 10.5 g/dL and LATANYA with elevated serum creatinine 2.0 mg/dL. Patient had a CT head which showed no acute finding. Patient was started on IV fluid resuscitation and her home dose of the diuretics and antihypertensive medication including enalapril and carvedilol were held. Patient denies any history of a viral infection or nausea vomiting diarrhea prior to hospitalization. Nephrology is consulted for LATANYA on CKD management. Interim history Patient was seen and examined bedside. She is feeling better today denies any chest pain palpation cough nausea vomiting diarrhea and shortness of breath Exam Physical Exam Vital Signs: Temp Pulse Resp BP Pulse Ox O2 Del Method 98.7 F 88 16 126/78 99 Room Air 06/04/24 08:23 06/04/24 11:22 06/04/24 11:22 06/04/24 11:22 06/04/24 11:22 06/04/24 11:22 Narrative: General: Appears comfortable and not in distress Heart: S1-S2, no rub Lung: Bilateral air entry, no wheezing or crackles Abdomen: Soft, positive bowel sounds Extremities: No edema, no cyanosis Head: Atraumatic, normocephalic Ear: No gross hearing Deficit or external ear redness Eyes: No pallor or redness Neck: No JVD or visible mass Skin: No rashes , warm to touch TOP FORMER: Awake,Alert, following simple command Musculoskeletal: No swelling or limitation of movement of the large joints Psychiatric: Cooperative, normal mood and affect Objective Intake and Output I&O: Intake & Output 06/01/24 06/02/24 06/03/24 06/04/24 23:59 23:59 23:59 23:59 Intake Total 400 / 400 2099 / 2100 2200 / 2200 200 / 200 Balance 400 / 400 2099 / 2100 2200 / 2200 200 / 200 Weight 70.5 kg 70.5 kg 70.3 kg Meds and Allergies Meds: Active Medications Acetaminophen (Acetaminophen 500 Mg Tablet) 500 mg PO Q4H PRN PRN Reason: Pain Stop: 06/01/25 17:07 Last Admin: 06/04/24 08:24 Dose: 500 mg Aspirin (Aspirin 81 Mg Tablet.) 81 mg PO DAILY [facility] Stop: 06/02/25 08:59 Last Admin: 06/04/24 08:24 Dose: 81 mg Baclofen (Baclofen 20 Mg Tablet) 20 mg PO QHS [facility] Stop: 06/03/25 21:59 Last Admin: 06/03/24 21:23 Dose: 20 mg Carvedilol (Carvedilol 6.25 Mg Tablet) 6.25 mg PO BID.WITH.MEALS [facility] Stop: 06/04/25 10:59 Last Admin: 06/04/24 11:23 Dose: 6.25 mg Enoxaparin Sodium (Enoxaparin 30 Mg/0.3 Ml Syringe) 30 mg SUBCUT DAILY@10 [facility] Stop: 06/02/25 09:59 Last Admin: 06/04/24 09:50 Dose: Not Given Fluticasone Propionate (Fluticasone Propionate Hurricane 120 Hurricane/16 Gm Bottle) 2 spray NARES-BOTH DAILY PRN PRN Reason: NASAL CONGESTION Stop: 06/02/25 08:59 Last Admin: 06/03/24 11:32 Dose: 2 spray Gabapentin (Gabapentin 600 Mg Tablet) 600 mg PO TID [facility] Stop: 06/03/25 13:59 Last Admin: 06/04/24 08:24 Dose: 600 mg Melatonin (Melatonin 5 Mg Tablet) 10 mg PO QHS PRN PRN Reason: Sleep Stop: 06/01/25 18:00 Last Admin: 06/03/24 20:52 Dose: 10 mg Montelukast Sodium (Montelukast 10 Mg Tablet) 10 mg PO HS [facility] Stop: 06/01/25 21:59 Last Admin: 06/03/24 20:52 Dose: 10 mg Pantoprazole Sodium (Pantoprazole 40 Mg Tablet.) 40 mg PO BID.AC.BKFAST.SUPPER [facility] Stop: 06/02/25 07:29 Last Admin: 06/04/24 05:32 Dose: 40 mg Sodium Chloride (Sodium Chloride 0.9 % 10 Ml Syringe) 0 ml IV-PUSH PRN PRN PRN Reason: Flush Stop: 06/01/25 11:38 Last Admin: 06/01/24 12:07 Dose: 10 ml Trazodone HCl (Trazodone 50 Mg Tablet) 50 mg PO HS [facility] Stop: 06/01/25 21:59 Last Admin: 06/03/24 20:52 Dose: 50 mg Allergies atorvastatin (From Lipitor) Allergy (Unknown, Verified 06/01/24 11:40) Hives levofloxacin (Levaquin) Allergy (Unknown, Verified 06/01/24 11:40) Unknown Reaction Penicillins Allergy (Verified 06/01/24 11:40) Hives Results - Nephrology Labs 06/03/24 06:06 06/04/24 06:09 Labs: 06/04/24 06:09 BUN 31 H Creatinine 1.21 H Radiology Impressions Impressions - last 24 hours: Any impression(s) listed above is documentation that was entered by the reading physician into a diagnostic report(s) for Renuka Owen. I have reviewed the report(s) and am incorporating any findings in the treatment plan of this patient where applicable. A&P - Nephrology Assessment/Plan (1) [id number] kidney injury: Assessment/Problem Details: She has LATANYA likely due to the hypovolemia. Renal function improved with IV fluid resuscitation. Herrenal ultrasound showed unremarkable kidneys. (2) Hypokalemia: Assessment/Problem Details: She has hypokalemia due to the diuretic induced renal potassium wasting (3) Chronic kidney disease: Assessment/Problem Details: She has CKD due to the chronic cardiorenal syndrome and hypertension with baseline serum run around1.0 mg/dL. (4) Hypertension: Assessment/Problem Details: Her blood pressure was low on presentation. She was taking carvedilol, metolazone, torsemide and enalapril at home. (5) Anemia: Assessment/Problem Details: Hemoglobin is below the goal. (6) Chronic HFrEF (heart failure with reduced ejection fraction): Assessment/Problem Details: She appears to be well compensated. She was taking metolazone and torsemide at home. Plan * Will resume torsemide and give 10 mg today and 20 mg starting tomorrow. * Will continue to hold home dose of the metolazone and enalapril * Will decrease the dose of carvedilol to 3.125 mg twice daily to avoid hypotension. * Check renal function daily monitor input output * Documented By: Sherin Arellano MD 06/04/24 113 Signed By: 06/04/24 1136 [facility]02-01-2025 Consult note Author Sherin Arellano [facility] HospitalNote Date/TimeFebruary 2024 10:33am [place] [address] Nephrology Consult Note Signed Patient: Renuka Owen MR#: [id number] : 1950 Acct:[id number] Age/Sex: 73 / F Adm Date: 5 Loc: Room: [address] [place] [address] Type: ADM IN Attending Dr: Isaiah Mejia DO Copies to: MD Sylvester Sanchez DO Michael R. Frings, DO~ Providers Consult Date: 06/03/24 Requesting Provider: Isaiah Mejia DO Primary Care Provider: Sylvester Jacob DO HPI Reason for Consult: LATANYA and hypokalemia management History of Present Illness: This is a 73-year-old female with medical history of CKD, anemia, orthostatic hypotension, mitral regurgitation, HFrEF, HTN, cervical spondylosis was presented to the emergency room after mechanical fall. Patient was recently admitted at [facility] for LATANYA and was seen by our service. Initial evaluation emergency room showed anemia with hemoglobin 10.5 g/dL and LATANYA with elevated serum creatinine 2.0 mg/dL. Patient had a CT head which showed no acute finding. Patient was started on IV fluid resuscitation and her home dose of the diuretics and antihypertensive medication including enalapril and carvedilol were held. Patient denies any history of a viral infection or nausea vomiting diarrhea prior to hospitalization. Nephrology is consulted for LATANYA on CKD management. Patient was seen and examined bedside she is feeling better today. Review of Systems Review of Systems All other systems reviewed & are negative unless noted below or in HPI Review of systems: Cardiovascular: denies any chest pain, palpitation Pulmonary: denies any cough, hemoptysis Gastrointestinal: denies any nausea, vomiting, diarrhea Neurological :denies any headache, numbness, weakness Endocrine: denies any polyuria, polydipsia Dermatological: denies any itching or rash [facility] Medical History Chronic kidney disease Unsteady gait when walking Anemia Orthostatic hypotension Mitral regurgitation Hypertension Chronic HFrEF (heart failure with reduced ejection fraction) Occipital headache Unsteadiness on feet Cervical spondylosis with radiculopathy Neck pain Degenerative arthritis of left foot Chronic venous insufficiency of lower extremity Nocturnal leg cramps Chemotherapy-induced peripheral neuropathy Peripheral polyneuropathy Neuropathy DDD (degenerative disc disease) Incontinence urinary incontinence GERD (gastroesophageal reflux disease) Left bundle branch block Vascular access prohibited in left upper extremity Presacral mass Excision 2019 Arthritis Low back pain Osteoporosis Breast cancer left Surgical History S/P lumbar fusion (~04/2023) H/O colonoscopy (~01/2018) History of phacoemulsification of cataract of both eyes with intraocular lens implantation 2021 History of appendectomy History of hysterectomy Hx of decompressive lumbar laminectomy 2021 History of total bilateral knee replacement one month between procedures History of left mastectomy History of repair of left rotator cuff Hx of cholecystectomy Family History Mother Breast cancer Father Testicular cancer Brother Leukemia Social History Smoking Status: Never smoker Substance Use Type: None Social History Comments: mobile home Meds Medications & Allergies Allergies atorvastatin (From Lipitor) Allergy (Unknown, Verified 06/01/24 11:40) Hives levofloxacin (Levaquin) Allergy (Unknown, Verified 06/01/24 11:40) Unknown Reaction Penicillins Allergy (Verified 06/01/24 11:40) Hives Home Medications calcium 600 mg (as carbonate)-vitamin D3 10 mcg (400 unit) tablet (Calcium 600 +D(3)) 1 tab PO BID osteoporosis 09/24/21 [History Confirmed 06/01/24] melatonin 10 mg tablet 10 mg PO HS PRN Sleep 03/16/22 [History Confirmed 06/01/24] enalapril maleate 2.5 mg tablet 2.5 mg PO BID 03/26/23 [History Confirmed 06/01/24] torsemide 20 mg tablet 20 mg PO DAILY 03/26/23 [History Confirmed 06/01/24] aspirin 81 mg tablet,delayed release 81 mg PO DAILY 04/09/23 [History Confirmed 06/01/24] acetaminophen 500 mg tablet 500 mg PO Q4H PRN Pain #0 tabs 04/19/23 [Rx Confirmed 06/01/24] fluticasone propionate 50 mcg/actuation nasal spray,suspension See Rx Instructions .Route .COMPLEX #48 mL 01/09/24 [Rx Confirmed 06/01/24] omeprazole 40 mg capsule,delayed release See Rx Instructions .Route .COMPLEX #90caps 02/24/24 [Rx Confirmed 06/01/24] gabapentin 300 mg capsule 600 mg PO TID nerve pain 04/04/24 [History Confirmed 06/01/24] metolazone 2.5 mg tablet 2.5 mg PO DAILY 04/04/24 [History Confirmed 06/01/24] trazodone 50 mg tablet 50 mg PO HS 04/07/24 [History Confirmed 06/01/24] tramadol 50 mg tablet 50 mg PO Q6HR PRN pain 30 days #30 tabs 04/12/24 [Rx Confirmed 06/01/24] montelukast 10 mg tablet 10 mg PO HS 06/01/24 [History Confirmed 06/01/24] baclofen 20 mg tablet See Rx Instructions .Route .COMPLEX #90 tabs 06/02/24 [Rx] carvedilol 6.25 mg tablet See Rx Instructions .Route .COMPLEX #180 tabs 06/02/24 [Rx] Active Medications: Active Medications Acetaminophen (Acetaminophen 500 Mg Tablet) 500 mg PO Q4H PRN PRN Reason: Pain Stop: 06/01/25 17:07 Last Admin: 06/03/24 05:18 Dose: 500 mg Aspirin (Aspirin 81 Mg Tablet.) 81 mg PO DAILY [facility] Stop: 06/02/25 08:59 Last Admin: 06/03/24 08:08 Dose: 81 mg Enoxaparin Sodium (Enoxaparin 30 Mg/0.3 Ml Syringe) 30 mg SUBCUT DAILY@10 [facility] Stop: 06/02/25 09:59 Last Admin: 06/03/24 08:08 Dose: 30 mg Fluticasone Propionate (Fluticasone Propionate Hurricane 120 Hurricane/16 Gm Bottle) 2 spray NARES-BOTH DAILY PRN PRN Reason: NASAL CONGESTION Stop: 06/02/25 08:59 Sodium Chloride (0.9% Sodium Chloride 1,000 Ml) 1,000 mls @ 100 mls/hr IV .Q10H [facility] Stop: 06/01/25 13:44 Last Admin: 06/03/24 08:08 Dose: 100 mls/hr Melatonin (Melatonin 5 Mg Tablet) 10 mg PO QHS PRN PRN Reason: Sleep Stop: 06/01/25 18:00 Last Admin: 06/02/24 20:42 Dose: 10 mg Montelukast Sodium (Montelukast 10 Mg Tablet) 10 mg PO [facility] Stop: 06/01/25 21:59 Last Admin: 06/02/24 20:42 Dose: 10 mg Pantoprazole Sodium (Pantoprazole 40 Mg Tablet.Dr) 40 mg PO BID.AC.BKFAST.SUPPER [facility] Stop: 06/02/25 07:29 Last Admin: 06/03/24 05:19 Dose: 40 mg Sodium Chloride (Sodium Chloride 0.9 % 10 Ml Syringe) 0 ml IV-PUSH PRN PRN PRN Reason: Flush Stop: 06/01/25 11:38 Last Admin: 06/01/24 12:07 Dose: 10 ml Trazodone HCl (Trazodone 50 Mg Tablet) 50 mg PO [facility] Stop: 06/01/25 21:59 Last Admin: 06/02/24 20:42 Dose: 50 mg Exam Physical Exam Vital Signs: Temp Pulse Resp BP Pulse Ox O2 Del Method 98.3 F 83 18 129/78 99 Room Air 06/03/24 08:05 06/03/24 08:05 06/03/24 08:05 06/03/24 08:05 06/03/24 08:05 06/03/24 08:05 Narrative: General: Appears comfortable and not in distress Heart: S1-S2, no rub Lung: Bilateral air entry, no wheezing or crackles Abdomen: Soft, positive bowel sounds Extremities: No edema, no cyanosis Head: Atraumatic, normocephalic Ear: No gross hearing Deficit or external ear redness Eyes: No pallor or redness Neck: No JVD or visible mass Skin: No rashes , warm to touch TOP FORMER: Awake,Alert, following simple command Musculoskeletal: No swelling or limitation of movement of the large joints Psychiatric: Cooperative, normal mood and affect Results - Nephrology Labs 06/03/24 06:06 06/03/24 06:06 Labs: 06/03/24 06:06 BUN 42 H D Creatinine 1.03 D Radiology Impressions Impressions - last 24 hours: Any impression(s) listed above is documentation that was entered by the reading physician into a diagnostic report(s) for Renuka Owen. I have reviewed the report(s) and am incorporating any findings in the treatment plan of this patient where applicable. A&P - Nephrology Assessment/Plan (1) [id number] kidney injury: Assessment/Problem Details: She has LATANYA likely due to the hypovolemia. Renal function improved with IV fluid resuscitation. (2) Hypokalemia: Assessment/Problem Details: She has hypokalemia due to the diuretic induced renal potassium wasting (3) Chronic kidney disease: Assessment/Problem Details: She has CKD due to the chronic cardiorenal syndrome and hypertension with baseline serum run around1.0 mg/dL. (4) Hypertension: Assessment/Problem Details: Her blood pressure was low on presentation. She was taking carvedilol, metolazone, torsemide and enalapril at home. (5) Anemia: Assessment/Problem Details: Hemoglobin is below the goal. (6) Chronic HFrEF (heart failure with reduced ejection fraction): Assessment/Problem Details: She appears to be well compensated. She was taking metolazone and torsemide at home. Plan * Will stop the IV fluid. * Check renal ultrasound to evaluate the renal anatomy. * Will continue to hold home dose of the metolazone and torsemide * Will give potassium chloride 40 mEq p.o. time 1 dose. * Continue to hold home dose of the torsemide, metolazone, enalapril. * Okay to resume home dose of the carvedilol. * Check renal function daily monitor input output * Thanks for your consult. Will continue follow-up with you. Please feel free to call us with any question. Documented By: Sherin Arellano MD 06/03/24 0837 Signed By: <Electronically signed by Sherin Arellano MD> 06/03/24 1039 [facility] Work Phone: [phone]) 771-642802-01-2025 Radiology Diagnostic [facility] Main [place] [address] [place], [place] [id number] Ultrasound Report Signed Patient: Renuka Owen MR#: [id number] : 1950 Acct:[id number] Age/Sex: 73 / F ADM Date: 5 Loc: 3T Room: [address] [place] [address] Type: ADM IN Attending Dr: Isaiah Mejia DO Ordering Provider: Sherin Arellano MD Date of Service: 06/03/24 US/US renal BI: LATANYA Copies to: MD Isaiah Sanchez DO~ BILATERAL RENAL AND BLADDER ULTRASOUND CLINICAL HISTORY: Acute kidney injury, chronic kidney disease. COMPARISON: None FINDINGS: Estimation of renal size is approximately 9.85 cm on the right and 9.13 cm on the left. No contour deforming mass, shadowing stone or hydronephrosis. The urinary bladder is partially distended with a volume of 106.63 ml. No shadowing stone or focal lesion. No significant postvoid residual. US/US renal BI IMPRESSION: No acute findings. Impression dictated by: Saman Vo Jr., DRadhaORadha06/03/2024 11:19 AM Dictation Location: [place] [address] Tech: Cristiana Torrez Transcribed By: BJORN 06/03/24 111 Dictated By: Saman Vo Jr, DO 06/03/24 111 Signed By: 06/03/[address] [place], [place] 3018502-01-[address] [address] Nephrology Consult Note Signed Patient: Renuka Owen MR#: [id number] : 1950 Acct:[id number] Age/Sex: 73 / F Adm Date: 5 Loc: 3T Room: [address] [place] [address] Type: ADM IN Attending Dr: Isaiah Mejia DO Copies to: MD Sylvester Sanchez DO Michael R. Frings, DO~ Providers Consult Date: 06/03/24 Requesting Provider: Isaiah Mejia DO Primary Care Provider: Sylvester Jacob DO HPI Reason for Consult: LATANYA and hypokalemia management History of Present Illness: This is a 73-year-old female with medical history of CKD, anemia, orthostatic hypotension, mitral regurgitation, HFrEF, HTN, cervical spondylosis was presented to the emergency room after mechanical fall. Patient was recently admitted at [facility] for LATANYA and was seen by our service. Initial evaluation emergency room showed anemia with hemoglobin 10.5 g/dL and LATANYA with elevated serum creatinine 2.0 mg/dL. Patient had a CT head which showed no acute finding. Patient was started on IV fluid resuscitation and her home dose of the diuretics and antihypertensive medication including enalapril and carvedilol were held. Patient denies any history of a viral infection or nausea vomiting diarrhea prior to hospitalization. Nephrology is consulted for LATANYA on CKD management. Patient was seen and examined bedside she is feeling better today. Review of Systems Review of Systems All other systems reviewed & are negative unless noted below or in HPI Review of systems: Cardiovascular: denies any chest pain, palpitation Pulmonary: denies any cough, hemoptysis Gastrointestinal: denies any nausea, vomiting, diarrhea Neurological :denies any headache, numbness, weakness Endocrine: denies any polyuria, polydipsia Dermatological: denies any itching or rash [facility] Medical History Chronic kidney disease Unsteady gait when walking Anemia Orthostatic hypotension Mitral regurgitation Hypertension Chronic HFrEF (heart failure with reduced ejection fraction) Occipital headache Unsteadiness on feet Cervical spondylosis with radiculopathy Neck pain Degenerative arthritis of left foot Chronic venous insufficiency of lower extremity Nocturnal leg cramps Chemotherapy-induced peripheral neuropathy Peripheral polyneuropathy Neuropathy DDD (degenerative disc disease) Incontinence urinary incontinence GERD (gastroesophageal reflux disease) Left bundle branch block Vascular access prohibited in left upper extremity Presacral mass Excision 2019 Arthritis Low back pain Osteoporosis Breast cancer left Surgical History S/P lumbar fusion (~04/2023) H/O colonoscopy (~01/2018) History of phacoemulsification of cataract of both eyes with intraocular lens implantation 2021 History of appendectomy History of hysterectomy Hx of decompressive lumbar laminectomy 2021 History of total bilateral knee replacement one month between procedures History of left mastectomy History of repair of left rotator cuff Hx of cholecystectomy Family History Mother Breast cancer Father Testicular cancer Brother Leukemia Social History Smoking Status: Never smoker Substance Use Type: None Social History Comments: mobile home Meds Medications & Allergies Allergies atorvastatin (From Lipitor) Allergy (Unknown, Verified 06/01/24 11:40) Hives levofloxacin (Levaquin) Allergy (Unknown, Verified 06/01/24 11:40) Unknown Reaction Penicillins Allergy (Verified 06/01/24 11:40) Hives Home Medications calcium 600 mg (as carbonate)-vitamin D3 10 mcg (400 unit) tablet (Calcium 600 +D(3)) 1 tab PO BID osteoporosis 09/24/21 [History Confirmed 06/01/24] melatonin 10 mg tablet 10 mg PO HS PRN Sleep 03/16/22 [History Confirmed 06/01/24] enalapril maleate 2.5 mg tablet 2.5 mg PO BID 03/26/23 [History Confirmed 06/01/24] torsemide 20 mg tablet 20 mg PO DAILY 03/26/23 [History Confirmed 06/01/24] aspirin 81 mg tablet,delayed release 81 mg PO DAILY 04/09/23 [History Confirmed 06/01/24] acetaminophen 500 mg tablet 500 mg PO Q4H PRN Pain #0 tabs 04/19/23 [Rx Confirmed 06/01/24] fluticasone propionate 50 mcg/actuation nasal spray,suspension See Rx Instructions .Route .COMPLEX #48 mL 01/09/24 [Rx Confirmed 06/01/24] omeprazole 40 mg capsule,delayed release See Rx Instructions .Route .COMPLEX #90caps 02/24/24 [Rx Confirmed 06/01/24] gabapentin 300 mg capsule 600 mg PO TID nerve pain 04/04/24 [History Confirmed 06/01/24] metolazone 2.5 mg tablet 2.5 mg PO DAILY 04/04/24 [History Confirmed 06/01/24] trazodone 50 mg tablet 50 mg PO HS 04/07/24 [History Confirmed 06/01/24] tramadol 50 mg tablet 50 mg PO Q6HR PRN pain 30 days #30 tabs 04/12/24 [Rx Confirmed 06/01/24] montelukast 10 mg tablet 10 mg PO HS 06/01/24 [History Confirmed 06/01/24] baclofen 20 mg tablet See Rx Instructions .Route .COMPLEX #90 tabs 06/02/24 [Rx] carvedilol 6.25 mg tablet See Rx Instructions .Route .COMPLEX #180 tabs 06/02/24 [Rx] Active Medications: Active Medications Acetaminophen (Acetaminophen 500 Mg Tablet) 500 mg PO Q4H PRN PRN Reason: Pain Stop: 06/01/25 17:07 Last Admin: 06/03/24 05:18 Dose: 500 mg Aspirin (Aspirin 81 Mg Tablet.) 81 mg PO DAILY [facility] Stop: 06/02/25 08:59 Last Admin: 06/03/24 08:08 Dose: 81 mg Enoxaparin Sodium (Enoxaparin 30 Mg/0.3 Ml Syringe) 30 mg SUBCUT DAILY@10 [facility] Stop: 06/02/25 09:59 Last Admin: 06/03/24 08:08 Dose: 30 mg Fluticasone Propionate (Fluticasone Propionate Hurricane 120 Hurricane/16 Gm Bottle) 2 spray NARES-BOTH DAILY PRN PRN Reason: NASAL CONGESTION Stop: 06/02/25 08:59 Sodium Chloride (0.9% Sodium Chloride 1,000 Ml) 1,000 mls @ 100 mls/hr IV .Q10H [facility] Stop: 06/01/25 13:44 Last Admin: 06/03/24 08:08 Dose: 100 mls/hr Melatonin (Melatonin 5 Mg Tablet) 10 mg PO QHS PRN PRN Reason: Sleep Stop: 06/01/25 18:00 Last Admin: 06/02/24 20:42 Dose: 10 mg Montelukast Sodium (Montelukast 10 Mg Tablet) 10 mg PO HS [facility] Stop: 06/01/25 21:59 Last Admin: 06/02/24 20:42 Dose: 10 mg Pantoprazole Sodium (Pantoprazole 40 Mg Tablet.) 40 mg PO BID.AC.BKFAST.SUPPER [facility] Stop: 06/02/25 07:29 Last Admin: 06/03/24 05:19 Dose: 40 mg Sodium Chloride (Sodium Chloride 0.9 % 10 Ml Syringe) 0 ml IV-PUSH PRN PRN PRN Reason: Flush Stop: 06/01/25 11:38 Last Admin: 06/01/24 12:07 Dose: 10 ml Trazodone HCl (Trazodone 50 Mg Tablet) 50 mg PO HS [facility] Stop: 06/01/25 21:59 Last Admin: 06/02/24 20:42 Dose: 50 mg Exam Physical Exam Vital Signs: Temp Pulse Resp BP Pulse Ox O2 Del Method 98.3 F 83 18 129/78 99 Room Air 06/03/24 08:05 06/03/24 08:05 06/03/24 08:05 06/03/24 08:05 06/03/24 08:05 06/03/24 08:05 Narrative: General: Appears comfortable and not in distress Heart: S1-S2, no rub Lung: Bilateral air entry, no wheezing or crackles Abdomen: Soft, positive bowel sounds Extremities: No edema, no cyanosis Head: Atraumatic, normocephalic Ear: No gross hearing Deficit or external ear redness Eyes: No pallor or redness Neck: No JVD or visible mass Skin: No rashes , warm to touch TOP FORMER: Awake,Alert, following simple command Musculoskeletal: No swelling or limitation of movement of the large joints Psychiatric: Cooperative, normal mood and affect Results - Nephrology Labs 06/03/24 06:06 06/03/24 06:06 Labs: 06/03/24 06:06 BUN 42 H D Creatinine 1.03 D Radiology Impressions Impressions - last 24 hours: Any impression(s) listed above is documentation that was entered by the reading physician into a diagnostic report(s) for Renuka Yissel Owen. I have reviewed the report(s) and am incorporating any findings in the treatment plan of this patient where applicable. A&P - Nephrology Assessment/Plan (1) Eftqe-ei-lvwefsk kidney injury: Assessment/Problem Details: She has LATANYA likely due to the hypovolemia. Renal function improved with IV fluid resuscitation. (2) Hypokalemia: Assessment/Problem Details: She has hypokalemia due to the diuretic induced renal potassium wasting (3) Chronic kidney disease: Assessment/Problem Details: She has CKD due to the chronic cardiorenal syndrome and hypertension with baseline serum run around1.0 mg/dL. (4) Hypertension: Assessment/Problem Details: Her blood pressure was low on presentation. She was taking carvedilol, metolazone, torsemide and enalapril at home. (5) Anemia: Assessment/Problem Details: Hemoglobin is below the goal. (6) Chronic HFrEF (heart failure with reduced ejection fraction): Assessment/Problem Details: She appears to be well compensated. She was taking metolazone and torsemide at home. Plan * Will stop the IV fluid. * Check renal ultrasound to evaluate the renal anatomy. * Will continue to hold home dose of the metolazone and torsemide * Will give potassium chloride 40 mEq p.o. time 1 dose. * Continue to hold home dose of the torsemide, metolazone, enalapril. * Okay to resume home dose of the carvedilol. * Check renal function daily monitor input output * Thanks for your consult. Will continue follow-up with you. Please feel free to call us with any question. Documented By: Sherin Arellano MD 06/03/24 0837 Signed By: 06/03/24 1033 [facility]01-31-2025 Progress note Author Isaiah Mejia [facility] Hospital[facility] Date/TimeJanuary 2024 9:33pm [place] [address] Hospitalist Progress Note Signed Patient: Renuka Owen MR#: [id number] : 1950 Acct:[id number] Age/Sex: 73 / F Adm Date: 5 Loc: Room: [address] [place] [address] Type: ADM IN Attending Dr: Isaiah Mejia DO Copies to: ~ Date of Service: 06/02/2024 Subjective Subjective Narrative: Renuka Owen is a 73 y.o. female with a PMH of CKD, anemia, orthostatic hypotension, mitral regurgitation, hypertension, chronic HFrEF, unsteady gait, cervical spondylosis with radiculopathy, degenerative arthritis, chronic venous insufficiency, chemotherapy induced peripheral neuropathy, degenerative disc disease, incontinence, GERD, left bundle branch block, vascular access prohibited in left upper extremity, presacral mass with excision in 2019, low back pain, osteoporosis, breast cancer with left sided mastectomy, and cholecystectomy who initially presented to [facility] on 06/01/24 for concerns regarding a fall and LATANYA. Patient was seen and examined at bedside today. She states that she is feeling better and denies any new concerns today. She has been eating well although shehas had some difficulty sleeping due tothe hospital noise. She denies any headache, dizziness, chest pain, shortness of breath, abdominal pain, nausea, vomiting, diarrhea, or constipation today. Her kidney function has improved fromyesterday after receiving IV hydration. BUN 94, Creatinine 2.48, eGFR 19.878. EKG demonstrated normal sinus rhythm. PT/OT consulted. Patient wonders if she would be able to see the neurologist as she is concerned about her generalized weakness. She was scheduled to see Dr. Linda at the end of June in the outpatient setting. Patient is here for further evaluation. Physical Examination: GENERAL APPEARANCE: Alert, pleasant, appropriately oriented HEENT: NCAT, MMM CARDIAC: Normal S1 and S2. No S3, S4 or murmurs. LUNGS: Clear to auscultation bilaterally. no wheeze/rhonchi/rales ABDOMEN: Positive bowel sounds. Soft, nontender. No guarding or signs of an acute abdomen MUSCULOSKELETAL: Moving all extremities appropriately. Generalized weakness noted during motion andstrength testing, most prominent in lower extremities. EXTREMITIES: No clubbing, cyanosis or edema. Anterior swelling noted in bilateral shins with presence of contusion NEUROLOGICAL: No focal motor deficits. CN II-XI grossly intact PSYCHIATRIC: Appropriate mood and affect Assessment: Acute on Chronic Kidney Injury Contusion Generalized Weakness Plan: - WBC 9.4 - Hgb 10.5, Hct 31.8, MCV 85.4 - Na 138, K 4, Cl 94 - BUN 111, Creatinine 3.04, eGFR 15.569; 06/02/24 BUN 94, Creatinine 2.48, eGFR 19.878 - Glucose 115 - Mg 3.3 - TSH 5.13 - Cervical Spine CT demonstrated no cervical spine fracture - Head CT showed no acute intracranial abnormality - Chest X ray revealed chronic interstitial change without acute process - Knee X ray demonstrated left TKA without radiographic complication - Tibia/Fibula X Ray showed partially visualized right TKA without radiographic complication. Remote deformity involving the mid fibula suggestive of prior fracture. Ankle mortise appears intact. Soft tissue swelling noted predominantlyanterior. Left tib/fib mild soft tissue swelling primarily anter iorly with possible underlying hematoma. No acute bony process is seen. Ankle mortise appears intact. Plantar spurring - EKG demonstrates sinus rhythm with premature ventricular complexes or fusion complexes. Left bundle branch block - Apply Telemetry - IV fluids - Continue to monitor kidney function with daily labs - Consider Nephrology consult, appreciate recommendations - Urinalysis pending - Consider Neurology consult due to generalized weakness, appreciate recommendations - PT/OT consult, appreciate recommendations Diet: Renal Diet No Dialysis Code Status: Full Code DVT Prophylaxis: Lovenox Exam Physical Exam Vital Signs: Temp Pulse Resp BP Pulse Ox O2 Del Method 98.3 F 68 16 93/54 L 96 Room Air 06/02/24 08:00 06/02/24 08:00 06/02/24 08:00 06/02/24 08:00 06/02/24 08:00 06/02/24 08:00 Narrative: Physical Examination: GENERAL APPEARANCE: Alert, pleasant, appropriately oriented HEENT: NCAT, MMM CARDIAC: Normal S1 and S2. No S3, S4 or murmurs. LUNGS: Clear to auscultation bilaterally. no wheeze/rhonchi/rales ABDOMEN: Positive bowel sounds. Soft, nontender. No guarding or signs of an acute abdomen MUSCULOSKELETAL: Moving all extremities appropriately. Generalized weakness noted during motion andstrength testing, most prominent in lower extremities. EXTREMITIES: No clubbing, cyanosis or edema. Anterior swelling noted in bilateral shins with presence of contusion NEUROLOGICAL: No focal motor deficits. CN II-XI grossly intact PSYCHIATRIC: Appropriate mood and affect Objective Lab Results 06/02/24 07:22 06/02/24 07:22 Meds Allergies and Active Meds Allergies atorvastatin (From Lipitor) Allergy (Unknown, Verified 06/01/24 11:40) Hives levofloxacin (Levaquin) Allergy (Unknown, Verified 06/01/24 11:40) Unknown Reaction Penicillins Allergy (Verified 06/01/24 11:40) Hives Active Meds: Active Medications Generic Name Dose Route Start Last Admin Trade Name Freq PRN Reason Stop Dose Admin Acetaminophen 500 mg 06/01/24 17:08 06/01/24 21:27 Acetaminophen 500 Mg Tablet PO 06/01/25 17:07 500 mg Q4H PRN Administration Pain Aspirin 81 mg 06/02/24 09:00 06/02/24 08:20 Aspirin 81 Mg Tablet. PO 06/02/25 08:59 81 mg DAILY JUSTYN Administration Enoxaparin Sodium 30 mg 06/02/24 10:00 Enoxaparin 30 Mg/0.3 Ml Syringe SUBCUT 06/02/25 09:59 DAILY@10 JUSTYN Fluticasone Propionate 2 spray 06/02/24 09:00 Fluticasone Propionate Hurricane 120 Hurricane/16 Gm Bottle NARES-BOTH 06/02/25 08:59 DAILY PRN NASAL CONGESTION Sodium Chloride 1,000 mls @ 100 mls/hr 06/01/24 13:45 06/02/24 06:36 0.9% Sodium Chloride 1,000 Ml IV 06/01/25 13:44 100 mls/hr .Q10H JUSTYN Administration Melatonin 10 mg 06/01/24 18:01 06/01/24 21:27 Melatonin 5 Mg Tablet PO 06/01/25 18:00 10 mg QHS PRN Administration Sleep Montelukast Sodium 10 mg 06/01/24 22:00 06/01/24 21:26 Montelukast 10 Mg Tablet PO 06/01/25 21:59 10 mg HS JUSTYN Administration Pantoprazole Sodium 40 mg 06/02/24 07:30 06/02/24 06:36 Pantoprazole 40 Mg Tablet. PO 06/02/25 07:29 40 mg BID.AC.BKFAST.SUPPER JUSTYN Administration Sodium Chloride 0 ml 06/01/24 11:39 06/01/24 12:07 Sodium Chloride 0.9 % 10 Ml Syringe IV-PUSH 06/01/25 11:38 10 ml PRN PRN Administration Flush Trazodone HCl 50 mg 06/01/24 22:00 06/01/24 21:26 Trazodone 50 Mg Tablet PO 06/01/25 21:59 50 mg HS JUSTYN Administration A&P - Hospitalist Assessment/Plan (1) Qykgo-kq-pbinbis kidney injury: (2) Contusion: (3) Generalized weakness: Plan . <Statement entered by Isaiah Mejia DO - 06/02/24 21:33> I personally saw and examined the patient at the bedside this evening. Case wasdiscussed and coordinated in conjunction with pediatrician/medical doctor and I agree with management as noted therein. The patient has a appointment in renal dysfunction labs today and will consult nephrology to assistin guiding this as patient has need for guideline directed medical therapy in regards to her cardiac comorbidities but also has recurrent hospitalization and low blood pressure, intolerance of diuretics it seems. Patient states she is urinating without issue still and denies any dysuria. Documented By: Isaiah Mejia DO 06/02/24 10 32 Signed By: <Electronically signed by Isaiah Mejia DO> 06/02/243 <Electronically signed by MD AMBER Carver> 06/02/24 1037 [facility] Work Phone: [phone] 480-325101-31-2025 [place] [address] Hospitalist Progress Note Signed Patient: Renuka Owen MR#: [id number] : 1950 Acct:[id number] Age/Sex: 73 / F Adm Date: 5 Loc: Room: [address] [place] [address] Type: ADM IN Attending Dr: Isaiah Mejia DO Copies to: ~ Date of Service: 06/02/2024 Subjective Subjective Narrative: Renuka Owen is a 73 y.o. female with a PMH of CKD, anemia, orthostatic hypotension, mitral regurgitation, hypertension, chronic HFrEF, unsteady gait, cervical spondylosis with radiculopathy, degenerative arthritis, chronic venous insufficiency, chemotherapy induced peripheral neuropathy, degenerative disc disease, incontinence, GERD, left bundle branch block, vascular access prohibited in left upper extremity, presacral mass with excision in 2019, low back pain, osteoporosis, breast cancer with left sided mastectomy, and cholecystectomy who initially presented to [facility] on 06/01/24 for concerns regarding a fall and LATANYA. Patient was seen and examined at bedside today. She states that she is feeling better and denies any new concerns today. She has been eating well although shehas had some difficulty sleeping due tothe hospital noise. She denies any headache, dizziness, chest pain, shortness of breath, abdominal pain, nausea, vomiting, diarrhea, or constipation today. Her kidney function has improved fromyesterday after receiving IV hydration. BUN 94, Creatinine 2.48, eGFR 19.878. EKG demonstrated normal sinus rhythm. PT/OT consulted. Patient wonders if she would be able to see the neurologist as she is concerned about her generalized weakness. She was scheduled to see Dr. Linda at the end of June in the outpatient setting. Patient is here for further evaluation. Physical Examination: GENERAL APPEARANCE: Alert, pleasant, appropriately oriented HEENT: NCAT, MMM CARDIAC: Normal S1 and S2. No S3, S4 or murmurs. LUNGS: Clear to auscultation bilaterally. no wheeze/rhonchi/rales ABDOMEN: Positive bowel sounds. Soft, nontender. No guarding or signs of an acute abdomen MUSCULOSKELETAL: Moving all extremities appropriately. Generalized weakness noted during motion andstrength testing, most prominent in lower extremities. EXTREMITIES: No clubbing, cyanosis or edema. Anterior swelling noted in bilateral shins with presence of contusion NEUROLOGICAL: No focal motor deficits. CN II-XI grossly intact PSYCHIATRIC: Appropriate mood and affect Assessment: Acute on Chronic Kidney Injury Contusion Generalized Weakness Plan: - WBC 9.4 - Hgb 10.5, Hct 31.8, MCV 85.4 - Na 138, K 4, Cl 94 - BUN 111, Creatinine 3.04, eGFR 15.569; 06/02/24 BUN 94, Creatinine 2.48, eGFR 19.878 - Glucose 115 - Mg 3.3 - TSH 5.13 - Cervical Spine CT demonstrated no cervical spine fracture - Head CT showed no acute intracranial abnormality - Chest X ray revealed chronic interstitial change without acute process - Knee X ray demonstrated left TKA without radiographic complication - Tibia/Fibula X Ray showed partially visualized right TKA without radiographic complication. Remote deformity involving the mid fibula suggestive of prior fracture. Ankle mortise appears intact. Soft tissue swelling noted predominantlyanterior. Left tib/fib mild soft tissue swelling primarily anter iorly with possible underlying hematoma. No acute bony process is seen. Ankle mortise appears intact. Plantar spurring - EKG demonstrates sinus rhythm with premature ventricular complexes or fusion complexes. Left bundle branch block - Apply Telemetry - IV fluids - Continue to monitor kidney function with daily labs - Consider Nephrology consult, appreciate recommendations - Urinalysis pending - Consider Neurology consult due to generalized weakness, appreciate recommendations - PT/OT consult, appreciate recommendations Diet: Renal Diet No Dialysis Code Status: Full Code DVT Prophylaxis: Lovenox Exam Physical Exam Vital Signs: Temp Pulse Resp BP Pulse Ox O2 Del Method 98.3 F 68 16 93/54 L 96 Room Air 06/02/24 08:00 06/02/24 08:00 06/02/24 08:00 06/02/24 08:00 06/02/24 08:00 06/02/24 08:00 Narrative: Physical Examination: GENERAL APPEARANCE: Alert, pleasant, appropriately oriented HEENT: NCAT, MMM CARDIAC: Normal S1 and S2. No S3, S4 or murmurs. LUNGS: Clear to auscultation bilaterally. no wheeze/rhonchi/rales ABDOMEN: Positive bowel sounds. Soft, nontender. No guarding or signs of an acute abdomen MUSCULOSKELETAL: Moving all extremities appropriately. Generalized weakness noted during motion andstrength testing, most prominent in lower extremities. EXTREMITIES: No clubbing, cyanosis or edema. Anterior swelling noted in bilateral shins with presence of contusion NEUROLOGICAL: No focal motor deficits. CN II-XI grossly intact PSYCHIATRIC: Appropriate mood and affect Objective Lab Results 06/02/24 07:22 06/02/24 07:22 Meds Allergies and Active Meds Allergies atorvastatin (From Lipitor) Allergy (Unknown, Verified 06/01/24 11:40) Hives levofloxacin (Levaquin) Allergy (Unknown, Verified 06/01/24 11:40) Unknown Reaction Penicillins Allergy (Verified 06/01/24 11:40) Hives Active Meds: Active Medications Generic Name Dose Route Start Last Admin Trade Name Freq PRN Reason Stop Dose Admin Acetaminophen 500 mg 06/01/24 17:08 06/01/24 21:27 Acetaminophen 500 Mg Tablet PO 06/01/25 17:07 500 mg Q4H PRN Administration Pain Aspirin 81 mg 06/02/24 09:00 06/02/24 08:20 Aspirin 81 Mg Tablet. PO 06/02/25 08:59 81 mg DAILY JUSTYN Administration Enoxaparin Sodium 30 mg 06/02/24 10:00 Enoxaparin 30 Mg/0.3 Ml Syringe SUBCUT 06/02/25 09:59 DAILY@10 JUSTYN Fluticasone Propionate 2 spray 06/02/24 09:00 Fluticasone Propionate Hurricane 120 Hurricane/16 Gm Bottle NARES-BOTH 06/02/25 08:59 DAILY PRN NASAL CONGESTION Sodium Chloride 1,000 mls @ 100 mls/hr 06/01/24 13:45 06/02/24 06:36 0.9% Sodium Chloride 1,000 Ml IV 06/01/25 13:44 100 mls/hr .Q10H JUSTYN Administration Melatonin 10 mg 06/01/24 18:01 06/01/24 21:27 Melatonin 5 Mg Tablet PO 06/01/25 18:00 10 mg QHS PRN Administration Sleep Montelukast Sodium 10 mg 06/01/24 22:00 06/01/24 21:26 Montelukast 10 Mg Tablet PO 06/01/25 21:59 10 mg HS JUSTYN Administration Pantoprazole Sodium 40 mg 06/02/24 07:30 06/02/24 06:36 Pantoprazole 40 Mg Tablet. PO 06/02/25 07:29 40 mg BID.AC.BKFAST.SUPPER JUSTYN Administration Sodium Chloride 0 ml 06/01/24 11:39 06/01/24 12:07 Sodium Chloride 0.9 % 10 Ml Syringe IV-PUSH 06/01/25 11:38 10 ml PRN PRN Administration Flush Trazodone HCl 50 mg 06/01/24 22:00 06/01/24 21:26 Trazodone 50 Mg Tablet PO 06/01/25 21:59 50 mg HS JUSTYN Administration A&P - Hospitalist Assessment/Plan (1) Bccog-va-suluwmd kidney injury: (2) Contusion: (3) Generalized weakness: Plan . I personally saw and examined the patient at the bedside this evening. Case wasdiscussed and coordinated in conjunction with pediatrician/medical doctor and I agree with management as noted therein. The patient has a appointment in renal dysfunction labs today and will consult nephrology to assistin guiding this as patient has need for guideline directed medical therapy in regards to her cardiac comorbidities but also has recurrent hospitalization and low blood pressure, intolerance of diuretics it seems. Patient states she is urinating without issue still and denies any dysuria. Documented By: Isaiah Mejia DO 06/02/24 10 32 Signed By: 06/02/24 2133 06/02/[address] [place], [place] 2628001-30-2025 Radiology Diagnostic study note [facility] Main [address] [address] [address] Scan Report Signed Patient: Renuka Owen MR#: [id number] : 1950 Acct:[id number] Age/Sex: 73 / F ADM Date: 5 Loc: ER Room: Type: [facility] ER Attending Dr: Copies to: Regina Garcia DO~ Ordering Provider: Regina Garcia DO Date of Service: 06/01/24 CT/CT head/brain wo con: fall CT BRAIN WITHOUT CONTRAST: CLINICAL HISTORY: Multiple falls yesterday. Hematoma right forehead. COMPARISON: CT brain 04/07/2024 TECHNIQUE: Contiguous axial unenhanced images were obtained through the brain. This CT exam was performed using one or more following dose reduction techniques: Automated exposure control, adjustmentof the mA and/or kV accordingto patient size, or use of iterative reconstruction technique. FINDINGS: There is no evidence of midline shift, intra or extra-axial fluid collection, hemorrhage or CT evidence of stroke. Posterior fossa appears unremarkable. Visualized intraorbital contents demonstrate no acute findings. Visualized paranasal sinuses are clear. The surrounding soft tissues are normal. CT/CT head/brain wo con IMPRESSION: NO ACUTE INTRACRANIAL ABNORMALITY. Impression dictated by: Saman Vo Jr., D.O.06/01/2024 1:14 PM Dictation Location: [place] [address] Transcribed By: [facility] 06/01/24 1314 Dictated By: Saman Vo Jr, DO 06/01/24 1313 Signed By: 06/01/24 1314 [facility]01-27-2025 History of Present illness Narrative * Allen Encarnacion DO - 05/29/2024 3:00 PM EST Images from the original note were not included. Assessment/Plan Diagnoses and all orders for this visit: Primary open angle glaucoma (POAG) of both eyes, mild stage (CMS/HCC) - Primary open angle glaucoma OU - Importance of taking medications as prescribed was stressed. Patient was advised to report any inability or unwillingness to take medications or if cost is a concern. Patient must report any side effects that may develop. Patient must report any change in systemic medications as they may interact or interfere with their glaucoma medications. Patient will be dilated at least on an annual basis for optic nerve evaluation and will likely have an automated visual field examination at least once a year. It was explained to the patient that they might require additional treatment for intraocular pressure control such as laser therapy or surgical intervention Status post (s/p) Hydrus stent both eyes (OU) (2021). Hold on tx at this time. Will see her back and follow range as well as optic nerve (ON) behavior going forward. PCO (posterior capsular opacification), bilateral - PCO OU: (Posterior Capsule Opacification) Can be observed without intervention if PCO is not visually significant. Nd:YAG laser capsulotomy may be considered if impairment of vision rises to a level that dose not meet the patient's functional needs or interferes with activities of daily living. Risks, benefits and alternatives to the procedure will be reviewed. If the patient has undergone Nd:YAG laser capsulotomy, they are to notify their wound nurse promptly if they have a significant change in symptoms, such as flashes of light (photopsia), an increase in floaters, loss of visual field or decrease in visual acuity. Keratoconjunctivitis sicca of both eyes not specified as Sjogren's - Keratoconjunctivitis sicca OU -- Environmental changes to minimize dryness and exposure and the use of artificial tears were recommended. In addition, prescription based product was advised (ie. Restasis, Cequa or Xiidra) and prescribed. Pt has failed the usage of artificial tears. Has used multiple brands at varying numbers of times during the day. documented in this encounterCedar County Memorial [id number] History of Present illness Narrative* Marce Khan, ARIAS - 05/16/2024 2:30 PM EST Images from the original note were not included. Subjective Patient ID: Renuka Owen is a 73 y.o. female who presents for Nail care ( Renuka Owen is a 73 y.o. female who presents for Nail Care.Patient relates she has been letting her nails grow longer so she could mexican them. Last visit 12/2022.). HPI This is an established patient of the practice who presents to clinic with concern of painful toenails. Patient states that she was trying to let her toenails grow out so that she could paint them however they have become thickened, elongated and painful especially with close toed shoes and socks. Review of Systems Constitutional: Negative for activity change and appetite change. Respiratory: Negative for chest tightness and shortness of breath. Cardiovascular: Negative for chest pain and leg swelling. Musculoskeletal: Positive for arthralgias. Skin: Negative for color change and wound. Neurological: Negative for weakness and numbness. Psychiatric/Behavioral: Negative for agitation and behavioral problems. Hematological: Does not bruise/bleed easily. Endocrine: Negative for cold intolerance and heat intolerance. Allergic/Immunologic: Negative for immunocompromised state. Past medical History Past Medical History: Diagnosis Date Arthritis Breast cancer ([facility]) 2012 Cataract Cholelithiasis 1991 Chronic nonseasonal allergic rhinitis due to pollen Chronic tension headaches Dehydration GERD with esophagitis Glaucoma ([facility]) HTN (hypertension) ([facility]) Lumbar spondylosis Migraine ([facility]) Pain management 10/2015 Injections in lower back Medications Current Outpatient Medications: baclofen (Lioresal) 20 MG tablet, Take 20 mg by mouth in the morning and 20 mg in the evening and 20 mg before bedtime., Disp: , Rfl: calcium carbonate (Calcium 600) 600 MG tablet, Take 600 mg by mouth in the morning and 600 mg in the evening. Take with meals., Disp: , Rfl: carvedilol (Coreg) 6.25 MG tablet, Take 6.25 mg by mouth in the morning and 6.25 mg in the evening.Take with meals., Disp: , Rfl: cetirizine (ZyrTEC) 10 MG tablet, Take 10 mg by mouth., Disp: , Rfl: cholecalciferol (Vitamin D-3) 25 MCG (1000 UT) capsule, Take 1,000 Units by mouth in the morning., Disp: , Rfl: doxycycline (Monodox) 100 MG capsule, Take 1 capsule (100 mg) by mouth in the morning and 1 capsule(100 mg) before bedtime. Take with at least 8 ounces (large glass) of water, do not lie down for 30minutes after., Disp: 60 capsule, Rfl: 1 fluticasone (Cutivate) 0.05 % cream, Apply topically 2 (two) times a day., Disp: , Rfl: fluticasone (Flonase) 50 MCG/ACT nasal spray, Administer 1 spray into each nostril in the morning. Shake gently. Before first use, prime pump. After use, clean tip and replace cap.., Disp: , Rfl: gabapentin (Neurontin) 300 MG capsule, Take 300 mg by mouth in the morning and 300 mg in the evening and 300 mg before bedtime., Disp: , Rfl: hydroCHLOROthiazide (HYDRODiuril) 25 MG tablet, Take 25 mg by mouth in the morning., Disp: , Rfl: montelukast (Singulair) 10 MG tablet, Take 1 tablet (10 mg) by mouth at bedtime, Disp: 90 tablet, Rfl: 3 omeprazole (PriLOSEC) [address] capsule, Take 20 mg by mouth in the morning. Take before meals. Do not crush or chew. ., Disp: , Rfl: torsemide (Demadex) 10 MG tablet, Take 10 mg by mouth Daily, Disp: , Rfl: traMADol (Ultram) 50 MG tablet, Take 50 mg by mouth., Disp: , Rfl: Allergies Penicillins and Atorvastatin Past Surgical History Past Surgical History: Procedure Laterality Date BACK SURGERY 1982 BREAST RECONSTRUCTION 2011 Procedure:post mastectomy radiation planned;Disease:left breast cancer CATARACT EXTRACTION 10/2021 and 12/2021 CHOLECYSTECTOMY 1976 Cholelithiasis HYSTERECTOMY 1991 KNEE ARTHROPLASTY Left 01/2007 Dr. Miranda KNEE ARTHROPLASTY 01/2007 Dr. Miranda LUMBAR DISCECTOMY 10/08/2021 L4 Sx LUMBAR FUSION 04/01/2022 L4-L5 MASTECTOMY Left 2011 CT ARTHROSCOPY KNEE DIAGNOSTIC W/WO SYNOVIAL BX SPX 1994 CT ARTHROSCOPY KNEE DIAGNOSTIC W/WO SYNOVIAL BX SPX Right 1985 DR. Driver ROTATOR CUFF REPAIR Left 08/02/2017 Dr. 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 HENT: Head: Normocephalic and atraumatic. Cardiovascular: Pulses: Normal pulses. Pulmonary: Effort: Pulmonary effort is normal. No respiratory distress. Musculoskeletal: Cervical back: Neck supple. Skin: Capillary Refill: Capillary refill takes less than 2 seconds. Comments: 5 toenails exhibit clinical mycosis with thickened appearance, yellow discoloration, crumbly texture and subungual debris. Tenderness to palpation: Hallux toenails bilaterally. All 10 toenails are elongated. Neurological: Mental Status: She is alert. Comments: No loss of protective sensation, gross sensation intact. Psychiatric: Mood and Affect: Mood normal. Behavior: Behavior normal. Assessment/Plan ICD-10-CM 1. Dermatophytosis of nail B35.1 2. Dystrophic nail L60.3 3. Pain in both feet M79.671 M79.672 Patient was examined and evaluated. 10 toenails were debrided in length and thickness today utilizing a nail nipper and electric bur outer diameter grinder without incident. Patient noted relief of symptomatology post-debridement. I have recommended moisturizing the feet on a daily basis and discussed proper pedal hygiene. Follow-up 3-4 months for continued palliative nail care. This note was created with the assistance of a speech recognition program. While intending to generate a timely document that accurately reflects the content of the visit, no guarantee can be provided that every grammatical or spelling mistake has been or will be identified or corrected. Thank you for your understanding. Marce Khan DPM documented in this encounterCedar County Memorial [id number] Evaluation note* Diagnosis Onset Date Resolution Status Admit Date Anemia acuteJanuary 2024 1:44pmCervical spondylosis with radiculopathyacute May 12, 2024 1:44pmChronic HFrEF (heart failure with reduced ejection fraction)acuteJanuary 2024 1:44pmChronic kidney diseaseacuteJanuary 2024 1:44pmChronic venous insufficiency of lower extremityacuteMayuary 2024 1:44pmHypertensionacuteJanuary 2024 1:44pmLumbar stenosis without neurogenic claudicationacuteJanuary 2024 1:44pmUnsteady gait when walking acuteJanuary 2024 1:44pmAnemiaacuteJanuary 2024 1:43pmChemotherapy- induced peripheral neuropathyacuteJanuary 2024 1:43pmChronic HFrEF (heart failure with reduced ejection fraction)acuteJanuary 2024 1:43pmChronic kidney diseaseacuteJanuary 2024 1:43pmContusionacuteJanuary 2024 1:43pmHypertensionacuteJanuary 2024 1:43pmImpaired mobility and activities of daily livingacuteJanuary 2024 1:43pmUnsteady gait when walkingacute June 01, 2024 1:66seZaubd-vz-zpjhxph kidney injuryresolvedJanuary 2024 1:43pmHypokalemiaresolvedJanuary 2024 1:43pmGeneralized weakness deletedJanuary 2024 1:43pmHistory of total left knee replacementacute June 29, 2024 9:30amPes anserinus bursitis of left kneeacuteFebruary 2024 9:30amAnemiaacuteC[facility] 2024 1:18pmCervical spondylosis with radiculopathyacuteC[facility] 2024 1:18pmChronic HFrEF (heart failure with reduced ejection fraction)[facility] 2024 1:18pmChronic kidney diseaseacute July 03, 2024 1:18pmChronic venous insufficiency of lower extremityacuteC[facility] 2024 1:18pmHypertensionacuteC[facility] 2024 1:18pmLumbar stenosis without neurogenic claudicationNov[facility] 2024 1:18pmLeft knee painnoneactiveC[facility] [facility] 2024 1:18pm [facility] Work Phone: 1(102) 541-213801-10-2025 Evaluation note* Diagnosis Onset Date Resolution Status Admit Date Anemia acuteJanuary 2024 1:44pmCervical spondylosis with radiculopathyacute May 12, 2024 1:44pmChronic HFrEF (heart failure with reduced ejection fraction)acuteJanuary 2024 1:44pmChronic kidney diseaseacuteJanuary 2024 1:44pmChronic venous insufficiency of lower extremityacuteMayuary 2024 1:44pmHypertensionacuteJanuary 2024 1:44pmLumbar stenosis without neurogenic claudicationacuteJanuary 2024 1:44pmUnsteady gait when walking acuteJanuary 2024 1:44pmAnemiaacuteJanuary 2024 1:43pmChemotherapy- induced peripheral neuropathyacuteJanuary 2024 1:43pmChronic HFrEF (heart failure with reduced ejection fraction)acuteJanuary 2024 1:43pmChronic kidney diseaseacuteJanuary 2024 1:43pmContusionacuteJanuary 2024 1:43pmHypertensionacuteJanuary 2024 1:43pmImpaired mobility and activities of daily livingacuteJanuary 2024 1:43pmUnsteady gait when walkingacute June 01, 2024 1:69mlXuira-gn-kknmgia kidney injuryresolvedJanuary 2024 1:43pmHypokalemiaresolvedJanuary 2024 1:43pmGeneralized weakness deletedMayuary 2024 1:43pmHistory of total left knee replacementacute June 29, 2024 9:30amPes anserinus bursitis of left kneeacuteFebruary 2024 9:30amAn[facility]acute[facility] [place] [facility] 1:18pmCervical spondylosis with radiculopathyacuteJulch 2024 1:18pmChronic HFrEF (heart failure with reduced ejection fraction)[facility] [place] [facility] 1:18pmChronic kidney diseaseacute July 03, 2024 1:18pmChronic venous insufficiency of lower extremityacuteJulch 2024 1:18pmHypertensionacuteMarch 2024 1:18pmLumbar stenosis without neurogenic claudicationacute[facility] 20[facility] 1:18pmLeft knee painnoneactiveMar 2024 1:18pmHistory of total left knee replacementacuteRobert [facility] [place] 20[facility] 11:07amPes anserinus bursitis of left kneeacuteMarch 2024 11:07am [facility] Work Phone: 1(993) 545-533101-02-2025 History of Present illness Narrative* Bryce Hendrickson MD - 05/04/2024 11:10 AM EST Subjective Renuka Owen is a 73 y.o. female Chief Complaint Follow-up HPI Patient is in the office for follow-up for the problems noted below. She was in the hospital recently with dehydration caused by aggressive diuresis. Her medication were adjusted and now she is in euvolemic state on a combination of 20 mg daily of torsemide and 2.5 mg daily of metolazone. Her last echocardiogram in January 2024 revealed ejection fraction of 50% with mild pulm hypertension RVSP 43 mmHg. She has moderate mitral regurgitation. Her cardiac murmur was not heard on examination today. Her lungs sounded clear and her blood pressure is under control. She had no lower extremity edema. The recent record from the admission to the hospital were reviewed and shared with the patient. Theechocardiogram finding was shared with the patient as well. ASSESSMENT AND PLAN: 1. Essential hypertension, currently under control. On Coreg and enalapril 2. Overweight, encouraged cutting back calorie intake. She has lost 10 pounds since her last visit 3. Chronic left bundle branch block, may be contributing to LV systolic dysfunction 4. moderate mitral rotation confirmed by echocardiogram January 2024. Will monitor annually 5. Mild LV systolic dysfunction, ejection fraction 50% by echocardiogram January 2024. Coreg and enalapril will be left as it is for the time being. She is compensated 6. History of recurrent lower extremity edema which has resolved by combining torsemide and metolazone which have been well-tolerated 7. Stage IIIa chronic kidney disease, last testing April 17, 2024. Repeat basic metabolic profile in 1 months is recommended Review of Systems Cardiovascular: Positive for leg swelling. All other systems reviewed and are negative. Vitals: 05/04/24 1116 BP: 98/64 BP Location: Right arm Patient Position: Sitting Pulse: 76 Weight: 69.4 kg (153 lb) Height: 1.549 m (5' 1 ) [...] content normal. Judgment: Judgment normal. Allergies Penicillins, Bbcvnbe-tkp-cmx reductase inhibitors, and Atorvastatin Current Medications Current Outpatient Medications: aspirin 81 mg EC tablet, Take 1 tablet (81 mg) by mouth once daily., Disp: , Rfl: baclofen (Lioresal) 20 mg tablet, Take 1 tablet (20 mg) by mouth once daily as needed., Disp: , Rfl: carvedilol (Coreg) 6.25 mg tablet, Take 1 tablet (6.25 mg) by mouth 2 times daily (morning and lateafternoon)., Disp: , Rfl: enalapril (Vasotec) 2.5 mg [...] by mouth once daily., Disp: , Rfl: metOLazone (Zaroxolyn) 2.5 mg tablet, Take 1 tablet (2.5 mg) by mouth once daily., Disp: 30 tablet,Rfl: 5 omeprazole (PriLOSEC) [address] capsule, Take 1 capsule (20 mg) by mouth once daily in the morning. Take before meals., Disp: , Rfl: torsemide (Demadex) 20 mg tablet, Take 1 tablet (20 mg) by mouth once daily., Disp: 90 tablet, Rfl:1 traMADol (Ultram) 50 mg tablet, Take 1 tablet (50 mg) by mouth 2 times a day as needed., Disp: , Rfl: Assessment/Plan 1. Mitral valve insufficiency, unspecified etiology Follow Up In Cardiology Follow Up In Cardiology 2. Left ventricular systolic dysfunction 3. Essential hypertension Basic Metabolic Panel Basic Metabolic Panel 4. LBBB (left bundle branch block) 5. BMI 28.0-28.9,adult 6. Stage 3a chronic kidney disease (Multi) Scribe Attestation By signing my name below, Viji Warner LPN , Scribe attest that this documentation has been prepared under the direction and in the presence of Bryce Hendrickson MD. Provider Attestation - Scribe documentation All medical record entries made by the Scribe were at my direction and personally dictated by me. Ihave reviewed the chart and agree that the record accurately reflects my personal performance of the history, physical exam, discussion and plan. documented in [facility]South[facility] Work Phone: 1(137) 876-813101-02-2025 Instructions* Patient Instructions* Viji Denson LPN - 05/04/2024 11:10 AM EST Please bring all medicines, vitamins, and herbal supplements with you when you come to the office. Prescriptions will not be filled unless you are compliant with your follow up appointments or have a follow up appointment scheduled as per instruction of your physician. Refills should be requested at the time of your visit. BMI was above normal measurement. Current weight: 69.4 kg (153 lb) Weight change since last visit (-) denotes wt loss -4 lbs Weight loss needed to achieve BMI 25: 21 Lbs Weight loss needed to achieve BMI 30: -5.4 Lbs Provided instructions on dietary changes. * Attachments The following attachments cannot be sent through Care Everywhere. * Heart Healthy Diet (Salvadorean) documented in this [facility]South[facility] Work Phone: 1(673) 460-367912-03-2024 Evaluation note* Diagnosis Onset Date Resolution Status Admit Date Cervical spondylosis with radiculopathy acuteDece2023 2:12pmChemotherapy-induced peripheral neuropathyacute April 04, 2024 2:12pmOccipital headacheacuteDecemb2023 2:12pm Unsteadiness on feetacuteDece2023 2:12pmImpaired mobility and activities of daily livingdeletedDece2023 2:12pmSinusitisdeleted April 04, 2024 2:12pmGeneralized weaknessacuteDecember 2023 4:45pmAcute kidney injuryresolvedDecember 2023 4:45pmDiarrhearesolvedDecember 2023 4:45pmFallresolvedDecember 2023 4:45pmAnemiaacuteDecember 2023 2:39pmCervical spondylosis with radiculopathyacuteDecember 2023 2:39pm Chronic HFrEF (heart failure with reduced ejection fraction)acutember 2023 2:39pmChronic venous insufficiency of lower extremityacutecember 2023 2:39pmHypertensionacutecember 2023 2:39pmLumbar stenosis without neurogenic claudicationacutecember 2023 2:39pmMitral regurgitationacute April 12, 2024 2:39pmOccipital headacheacutember 2023 2:39pm Orthostatic hypotensionacutecember 2023 2:39pmAnemiaacuteJanuary 2024 1:44pmCervical spondylosis with radiculopathyacuteJanuary 2024 1:44pm Chronic HFrEF (heart failure with reduced ejection fraction)acuteJanuary 2024 1:44pmChronic kidney diseaseacuteJanuary 2024 1:44pmChronic venous insufficiency of lower extremityacuteJanuary 2024 1:44pmHypertensionacute May 12, 2024 1:44pmLumbar stenosis without neurogenic claudicationacute May 12, 2024 1:44pmUnsteady gait when walkingacuteJanuary 2024 1:44pm [facility] Work Phone: 1(891) 890-770012-03-2024 Evaluation note* Diagnosis Onset Date Resolution Status Admit Date Cervical spondylosis with radiculopathy acuteApril 04, 2024 2:12pmChemotherapy-induced peripheral neuropathyacute April 04, 2024 2:12pmOccipital headacheacutemb2023 2:12pm Unsteadiness on feetacuteApril 04, 2024 2:12pmImpaired mobility and activities of daily livingdeletedApril 04, 2024 2:12pmSinusitisdeleted April 04, 2024 2:12pmGeneralized weaknessacuteDecember 2023 4:45pmAcute kidney injuryresolvedDecember 2023 4:45pmDiarrhearesolvedDecember 2023 4:45pmFallresolvedDecember 2023 4:45pmAnemiaacuteDecember 2023 2:39pmCervical spondylosis with radiculopathyacuteDeceer 2023 2:39pm Chronic HFrEF (heart failure with reduced ejection fraction)acuteDecember 2023 2:39pmChronic venous insufficiency of lower extremityacutecember 2023 2:39pmHypertensionacuteDecember 2023 2:39pmLumbar stenosis without neurogenic claudicationacutecember 2023 2:39pmMitral regurgitationacute April 12, 2024 2:39pmOccipital headacheacutecember 2023 2:39pm Orthostatic hypotensionacutecember 2023 2:39pmAnemiaacuteJanuary 2024 1:44pmCervical spondylosis with radiculopathyacuteMayuary 2024 1:44pm Chronic HFrEF (heart failure with reduced ejection fraction)acuteJanuary 2024 1:44pmChronic kidney diseaseacuteJanuary 2024 1:44pmChronic venous insufficiency of lower extremityacuteMayuary 2024 1:44pmHypertensionacute May 12, 2024 1:44pmLumbar stenosis without neurogenic claudicationacute May 12, 2024 1:44pmUnsteady gait when walkingacuteMayuary 2024 1:27asWposf-te-zlbhtbg kidney injuryacuteJanuary 2024 1:43pmAnemiaacute June 01, 2024 1:43pmChemotherapy-induced peripheral neuropathyacuteJanuary 2024 1:43pmChronic HFrEF (heart failure with reduced ejection fraction) acuteJanuary 2024 1:43pmChronic kidney diseaseacuteJanuary 2024 1:43pmContusionacuteJanuary 2024 1:43pmGeneralized weaknessacuteJanuary 2024 1:43pmHypertensionacuteJanuary 2024 1:43pmHypokalemiaacute June 01, 2024 1:43pmImpaired mobility and activities of daily livingacute June 01, 2024 1:43pmUnsteady gait when walkingacuteMayuary 2024 1:43pm [facility] Work Phone: 1(163) 504-470112-03-2024 Evaluation note* Diagnosis Onset Date Resolution Status Admit Date Cervical spondylosis with radiculopathy acuteApril 04, 2024 2:12pmChemotherapy-induced peripheral neuropathyacute April 04, 2024 2:12pmOccipital headacheacutece2023 2:12pm Unsteadiness on feetacuteApril 04, 2024 2:12pmImpaired mobility and activities of daily livingdel2023 2:12pmSinusitisdeleted April 04, 2024 2:12pmGeneralized weaknessacutece2023 4:45pmAcute kidney injuryresolvedce2023 4:45pmDiarrhearesolvedDecember 2023 4:45pmFallresolvedDecember 2023 4:45pmAnemiaacuteceer 2023 2:39pmCervical spondylosis with radiculopathyacuteDece2023 2:39pm Chronic HFrEF (heart failure with reduced ejection fraction)acuteApril 12, 2024 2:39pmChronic venous insufficiency of lower extremityacuteceer 2023 2:39pmHypertensionacuteDecember 2023 2:39pmLumbar stenosis without neurogenic claudicationacuteer 2023 2:39pmMitral regurgitationacute April 12, 2024 2:39pmOccipital headacheacutecember 2023 2:39pm Orthostatic hypotensionacuteApril 12, 2024 2:39pmAnemiaacuteJanuary 2024 1:44pmCervical spondylosis with radiculopathyacuteMayuary 2024 1:44pm Chronic HFrEF (heart failure with reduced ejection fraction)acuteJanuary 2024 1:44pmChronic kidney diseaseacuteJanuary 2024 1:44pmChronic venous insufficiency of lower extremityacuteMayuary 2024 1:44pmHypertensionacute May 12, 2024 1:44pmLumbar stenosis without neurogenic claudicationacute May 12, 2024 1:44pmUnsteady gait when walkingacuteMayuary 2024 1:17svOkzwg-bh-ehtcjux kidney injuryacuteMayuary 2024 1:43pmAnemiaacute June 01, 2024 1:43pmChemotherapy-induced peripheral neuropathyacuteMayuary 2024 1:43pmChronic HFrEF (heart failure with reduced ejection fraction) acuteJanuary 2024 1:43pmChronic kidney diseaseacuteJanuary 2024 1:43pmContusionacuteMayuary 2024 1:43pmGeneralized weaknessacuteMayuary 2024 1:43pmHypertensionacuteJanuary 2024 1:43pmImpaired mobility and activities of daily livingacuteMayuary 2024 1:43pmUnsteady gait when walkingacuteMayuary 2024 1:43pmHypokalemiaresolvedMayuary 2024 1:43pmHistory of total left knee replacementacuteFebruary 2024 9:30am [facility] Work Phone: 1(710) 174-213212-03-2024 Evaluation note* Diagnosis Onset Date Resolution Status Admit Date Cervical spondylosis with radiculopathy acuteDe2023 2:12pmChemotherapy-induced peripheral neuropathyacute April 04, 2024 2:12pmOccipital headacheacuteDece2023 2:12pm Unsteadiness on feetacutece2023 2:12pmImpaired mobility and activities of daily livingdeletedApril 04, 2024 2:12pmSinusitisdeleted April 04, 2024 2:12pmGeneralized weaknessacutecember 2023 4:45pmAcute kidney injuryresolvedDecember 2023 4:45pmDiarrhearesolvedDecember 2023 4:45pmFallresolvedDecember 2023 4:45pmAnemiaacuteDecember 2023 2:39pmCervical spondylosis with radiculopathyacuteDecember 2023 2:39pm Chronic HFrEF (heart failure with reduced ejection fraction)acuteDecember 2023 2:39pmChronic venous insufficiency of lower extremityacuteDecember 2023 2:39pmHypertensionacuteDecember 2023 2:39pmLumbar stenosis without neurogenic claudicationacuteDecember 2023 2:39pmMitral regurgitationacute April 12, 2024 2:39pmOccipital headacheacuteDecember 2023 2:39pm Orthostatic hypotensionacuteDecember 2023 2:39pmAnemiaacuteJanuary 2024 1:44pmCervical spondylosis with radiculopathyacuteJanuary 2024 1:44pm Chronic HFrEF (heart failure with reduced ejection fraction)acuteJanuary 2024 1:44pmChronic kidney diseaseacuteJanuary 2024 1:44pmChronic venous insufficiency of lower extremityacuteMayuary 2024 1:44pmHypertensionacute May 12, 2024 1:44pmLumbar stenosis without neurogenic claudicationacute May 12, 2024 1:44pmUnsteady gait when walkingacuteMayuary 2024 1:63rpQwqls-xd-tqaduqn kidney injuryacuteMayuary 2024 1:43pmAnemiaacute June 01, 2024 1:43pmChemotherapy-induced peripheral neuropathyacuteJanuary 2024 1:43pmChronic HFrEF (heart failure with reduced ejection fraction) acuteJanuary 2024 1:43pmChronic kidney diseaseacuteJanuary 2024 1:43pmContusionacuteMayuary 2024 1:43pmGeneralized weaknessacuteMayuary 2024 1:43pmHypertensionacuteJanuary 2024 1:43pmImpaired mobility and activities of daily livingacuteMayuary 2024 1:43pmUnsteady gait when walkingacuteJanuary 2024 1:43pmHypokalemiaresolvedJanuary 2024 1:43pmHistory of total left knee replacementacuteFebruary 2024 9:30amPes anserinus bursitis of left kneeacuteFebruary 2024 9:30am [facility] Work Phone: 1(553) 659-494212-03-2024 Evaluation note* Diagnosis Onset Date Resolution Status Admit Date Cervical spondylosis with radiculopathy acuteDecember 2023 2:12pmChemotherapy-induced peripheral neuropathyacute April 04, 2024 2:12pmOccipital headacheacuteDeceer 2023 2:12pm Unsteadiness on feetacutece2023 2:12pmImpaired mobility and activities of daily livingdeleted2023 2:12pmSinusitisdeleted April 04, 2024 2:12pmGeneralized weaknessacutece2023 4:45pmAcute kidney injuryresolvedceer 2023 4:45pmDiarrhearesolvedDecember 2023 4:45pmFallresolvedDecember 2023 4:45pmAnemiaacuteDecember 2023 2:39pmCervical spondylosis with radiculopathyacuteDeceer 2023 2:39pm Chronic HFrEF (heart failure with reduced ejection fraction)acuteApril 12, 2024 2:39pmChronic venous insufficiency of lower extremityacutecember 2023 2:39pmHypertensionacuteDecember 2023 2:39pmLumbar stenosis without neurogenic claudicationacutecember 2023 2:39pmMitral regurgitationacute April 12, 2024 2:39pmOccipital headacheacuteDecember 2023 2:39pm Orthostatic hypotensionacutecember 2023 2:39pmAnemiaacuteJanuary 2024 1:44pmCervical spondylosis with radiculopathyacuteMayuary 2024 1:44pm Chronic HFrEF (heart failure with reduced ejection fraction)acuteJanuary 2024 1:44pmChronic kidney diseaseacuteJanuary 2024 1:44pmChronic venous insufficiency of lower extremityacuteMayuary 2024 1:44pmHypertensionacute May 12, 2024 1:44pmLumbar stenosis without neurogenic claudicationacute May 12, 2024 1:44pmUnsteady gait when walkingacuteMayuary 2024 1:07mxGyxsw-aw-apjfbjb kidney injuryacuteMayuary 2024 1:43pmAnemiaacute June 01, 2024 1:43pmChemotherapy-induced peripheral neuropathyacuteMayuary 2024 1:43pmChronic HFrEF (heart failure with reduced ejection fraction) acuteJanuary 2024 1:43pmChronic kidney diseaseacuteJanuary 2024 1:43pmContusionacuteJanuary 2024 1:43pmGeneralized weaknessacuteMayuary 2024 1:43pmHypertensionacuteJanuary 2024 1:43pmImpaired mobility and activities of daily livingacuteMayuary 2024 1:43pmUnsteady gait when walkingacuteMayuary 2024 1:43pmHypokalemiaresolvedMayuary 2024 1:43pmHistory of total left knee replacementacuteFebruary 2024 9:30amPes anserinus bursitis of left kneeacuteFebruary 2024 9:30amAnemiaacuteC[facility] 20[facility] 1:18pmCervical spondylosis with radiculopathyacute[facility] [place] 20[place] 1:18pmChronic HFrEF (heart failure with reduced ejection fraction)[facility] 2024 1:18pmChronic kidney diseaseacuteRobert [facility] [place] 2024 1:18pmChronic venous insufficiency of lower extremityacuteJul 2024 1:18pmHypertensionacute July 03, 2024 1:18pmLumbar stenosis without neurogenic claudicationacuteRobert [facility] [place] 2024 1:18pm [facility] Work Phone: 1(626) 849-342111-26-2024 History of Present illness Narrative* Chuck Cope MD - 03/28/2024 9:00 AM EST Subjective Patient ID: Renuka Owen is a [...] tension headaches Dehydration GERD with esophagitis Glaucoma ([facility]/HCC) HTN (hypertension) ([facility]) Lumbar spondylosis Migraine ([facility]) Pain management 10/2015 Past Surgical History: Procedure Laterality Date BACK SURGERY 1982 BREAST RECONSTRUCTION 2011 Procedure:post mastectomy radiation planned;Disease:left breast cancer CATARACT EXTRACTION 10/2021 and 12/2021 CHOLECYSTECTOMY 1976 Cholelithiasis HYSTERECTOMY 1991 KNEE ARTHROPLASTY Left 01/2007 Dr. Miranda KNEE ARTHROPLASTY 01/2007 Dr. Miranda LUMBAR DISCECTOMY 10/08/2021 L4 Sx LUMBAR FUSION 04/01/2022 L4-L5 MASTECTOMY Left 2011 CT ARTHROSCOPY KNEE DIAGNOSTIC W/WO SYNOVIAL BX SPX 1994 CT ARTHROSCOPY KNEE DIAGNOSTIC W/WO SYNOVIAL BX SPX Right 1985 DR. Driver ROTATOR CUFF REPAIR Left 08/02/2017 Dr. Hankins TONSILLECTOMY TUMOR EXCISION 06/19/2020 presacral tumor removed Allergies Allergen Reactions Penicillins Other Reaction(s): Unknown Atorvastatin Hives and Rash Current Outpatient Medications on File Prior to Visit Medication Sig Dispense Refill baclofen (Lioresal) 20 MG tablet Take 20 mg by mouth in the morning and 20 mg in the evening and 20mg before bedtime. calcium carbonate (Calcium 600) 600 MG tablet Take 600 mg by mouth in the morning and 600 mg in theevening. Take with meals. carvedilol (Coreg) 6.25 MG [...] the morning and 300 mg in the eveningand 300 mg before bedtime. hydroCHLOROthiazide (HYDRODiuril) 25 [...] and plan surgical tx. documented in this encounterCedar County Memorial [id number] Miscellaneous Notes* Addendum Note - Michelle Abarca - 03/28/2024 9:00 AM ESTAddended by: MICHELLE ABARCA on: 03/28/2024 01:21 PM Modules accepted: Orders documented in this encounterCedar County Memorial [id number] Note* Addendum Note - Michelle Abarca - 03/28/2024 9:00 AM ESTAddended by: MICHELLE ABARCA on: 03/28/2024 01:21 PM Modules accepted: Orders [facility] Work Phone: 1(426) 641-716111-26-2024 Note* Addendum Note - Michelle Abarca - 03/28/2024 9:00 AM ESTAddended by: MICHELLE ABARCA on: 03/28/2024 01:21 PM Modules accepted: Orders [facility] Work Phone: 1(430) 333-285011-06-2024 History of Present illness Narrative* Chuck Cope MD - 03/08/2024 9:20 AM EST Subjective Patient ID: Renuka Owen is a 73 y.o. female who presents for Allergic Rhinitis (Nasal polyp. ) and Tinnitus Pt reports a many month h/o rhinorrhea, scratchy throat, headache and nasal pressure. No tx yet. Pthad similar sx 3 years ago and was tx with 14 days levaquin and prednisone, which resolved her sx. Was also on saline rinses, zyrtec and flonase. Pt also a tapping sound intermittently in her head. No sx for 10 days. Family History Problem Relation Name Age of Onset Breast cancer Mother Alejandra Redinger Glaucoma Mother Alejandra Redinger Cancer Mother Alejandra Kellyinger Hearing loss Mother Alejandra Wu Testicular cancer Father Cleemelia Pink Cancer Father Gadiel Pink Leukemia Brother Active Ambulatory Problems Diagnosis Date Noted Primary open angle glaucoma (POAG) of both eyes, mild stage (CMS/HCC) 02/26/2023 PCO (posterior capsular opacification), bilateral 02/26/2023 Keratoconjunctivitis sicca of both eyes not specified as Sjogren's 06/09/2023 Resolved Ambulatory Problems Diagnosis Date Noted Dry eyes 02/26/2023 Past Medical History: Diagnosis Date Arthritis Breast cancer ([facility]) 2012 Cataract Cholelithiasis 1992 Chronic nonseasonal allergic rhinitis due to pollen Chronic tension headaches Dehydration GERD with esophagitis Glaucoma ([facility]) HTN (hypertension) ([facility]) Lumbar spondylosis Migraine ([facility]) Pain management 10/2015 Past Surgical History: Procedure Laterality Date BACK SURGERY 1982 BREAST RECONSTRUCTION 2011 Procedure:post mastectomy radiation planned;Disease:left breast cancer CATARACT EXTRACTION 10/2021 and 12/2021 CHOLECYSTECTOMY 1976 Cholelithiasis HYSTERECTOMY 1991 KNEE ARTHROPLASTY Left 01/2007 Dr. Miranda KNEE ARTHROPLASTY 01/2007 Dr. Miranda LUMBAR DISCECTOMY 10/08/2021 L4 Sx LUMBAR FUSION 04/01/2022 L4-L5 MASTECTOMY Left 2011 CT ARTHROSCOPY KNEE DIAGNOSTIC W/WO SYNOVIAL BX SPX 1994 CT ARTHROSCOPY KNEE DIAGNOSTIC W/WO SYNOVIAL BX SPX Right 1985 DR. Driver ROTATOR CUFF REPAIR Left 08/02/2017 Dr. Hankins TONSILLECTOMY TUMOR EXCISION 06/19/2020 presacral tumor removed Allergies Allergen Reactions Penicillins Other Reaction(s): Unknown Atorvastatin Hives and Rash Current Outpatient Medications on File Prior to Visit Medication Sig Dispense Refill baclofen (Lioresal) 20 MG tablet Take 20 mg by mouth in the morning and 20 mg in the evening and 20mg before bedtime. calcium carbonate (Calcium 600) 600 MG tablet Take 600 mg by mouth in the morning and 600 mg in theevening. Take with meals. carvedilol (Coreg) 6.25 MG [...] the morning and 300 mg in the eveningand 300 mg before bedtime. hydroCHLOROthiazide (HYDRODiuril) 25 [...] with the same regimen documented in this [facility]10-30-2024 Evaluation note* Diagnosis Onset Date Resolution Status Admit Date Chemotherapy-induced peripheral neuropat hy acuteOctober 2023 10:47amAllergic rhinitisdeletedOctober 2023 10:47amNasal polyp, posteriordeletedOctober 2023 10:47amTinnitus of both earsdeletedOctober 2023 10:47amCervical spondylosis with radiculopathy acuteDe2023 2:12pmChemotherapy-induced peripheral neuropathyacute April 04, 2024 2:12pmOccipital headacheacuteDecemb2023 2:12pm Unsteadiness on feetacuteDecemb2023 2:12pmImpaired mobility and activities of daily livingdeletedDecember 2023 2:12pmSinusitisdeleted April 04, 2024 2:12pmGeneralized weaknessacuteDecember 2023 4:45pmAcute kidney injuryresolvedDecember 2023 4:45pmDiarrhearesolvedDecember 2023 4:45pmFallresolvedDecember 2023 4:45pmAnemiaacuteDecember 2023 2:39pmCervical spondylosis with radiculopathyacuteDecember 2023 2:39pm Chronic HFrEF (heart failure with reduced ejection fraction)acuteDecember 2023 2:39pmChronic venous insufficiency of lower extremityacuteDecember 2023 2:39pmHypertensionacuteDecember 2023 2:39pmLumbar stenosis without neurogenic claudicationacuteDecember 2023 2:39pmMitral regurgitationacute April 12, 2024 2:39pmOccipital headacheacuteDecember 2023 2:39pm Orthostatic hypotensionacuteDecember 2023 2:39pmAnemiaacuteJanuary 2024 1:44pmCervical spondylosis with radiculopathyacuteJanuary 2024 1:44pm Chronic HFrEF (heart failure with reduced ejection fraction)acuteJanuary 2024 1:44pmChronic venous insufficiency of lower extremityacuteJanuary 2024 1:44pmHypertensionacuteJanuary 2024 1:44pmLumbar stenosis without neurogenic claudicationacuteJanuary 2024 1:44pmMitral regurgitationacute May 12, 2024 1:44pmOrthostatic hypotensionacuteJanuary 2024 1:44pm [facility] Work Phone: 1(550) 259-902309-05-2024 Telephone encounter Note* Telephone Encounter - Triny Mart RN - 01/06/2024 11:44 AM EDT Pt calls to ask when her mammogram is due. Pt's record reviewed. Last Mamm done on 02/08/23 @ [facility]. 12 month f/u recommended. Order for Mamm faxed to [facility] on 06/22/23. Pt notified of the above. Advised she call [facility] to schedule. Pt verbalizes understanding and agrees. Triny Mart RN [facility] Work Phone: 1(830) 872-855109-05-2024 Miscellaneous Notes* Telephone Encounter - Triny Mrat RN - 01/06/2024 11:44 AM EDT Pt calls to ask when her mammogram is due. Pt's record reviewed. Last Mamm done on 02/08/23 @ [facility]. 12 month f/u recommended. Order for Mamm faxed to [facility] on 06/22/23. Pt notified of the above. Advised she call [facility] to schedule. Pt verbalizes understanding and agrees. Triny Mart RN documented in this encounterOhio[facility]03-14-2024 History of Present illness Narrative* Bryce Hendrickson MD - 07/15/2023 10:30 AM EDT Subjective Renuka Owen is a [...] being. She is compensated Bryce Hendrickson MD, [facility] Review of Systems All other systems reviewed [...] content normal. Judgment: Judgment normal. Allergies Penicillins, Vnklend-vce-aph reductase inhibitors, and Atorvastatin Current Medications Current [...] Scribe Attestation By signing my name below, ITess LPN, Scribe attest that this documentation has been prepared under the direction and in the presence of Bryce Hendrickson MD. Provider Attestation - Scribe documentation All medical record entries made by the Scribe were at my direction and personally dictated by me. Ihave reviewed the chart and agree that the record accurately reflects my personal performance of the history, physical exam, discussion and plan. documented in this [facility] Work Phone: 1(223) 602-476603-14-2024 Instructions* Patient Instructions* Tess Holcomb LPN - 07/15/2023 10:30 AM [...] Provided instructions on exercise. [facility] Work Phone: 1(796) 629-968302-20-2024 History of Present illness Narrative* Jacob Mercado MD - 06/22/2023 6:21 AM EST PATIENT NAME: Renuka Owen DATE: 06/22/2023 PRIMARY CARE PHYSICIAN: Dr. Sylvester Jacob OTHER PHYSICIANS: Dr. Coley, Dr. Artur [...] here she underwent spinal surgery per Dr. Lizzeth ferguson chronic lower back pain, and her pain [...] her right breast or left breast implant. Norecurrent chest pain or other signs of pleurisy. [...] 308 RADIOLOGY/OTHER STUDIES: 02/08/2023 Diagnostic right mammogram ([facility]) Benign finding. No change from comparison. Recommend routine mammogram in 12 months. 05/10/2022 Chest CTA ([facility]) No evidence for acute pulmonary embolism, thoracic aortic aneurysm, or aortic dissection. Mild cardiomegaly with trace 3 mm thick pericardial effusion. Mosaic attenuation of the bilateral lungs reflect sequelae of reactive airway inflammation. Moderate bilateral upper and lower lung linear scar. 04/08/2020 CT abdomen/pelvis ([facility]). 6.4 x 3.3 cm soft tissue [...] advanced left breast cancer diagnosed March 2011. ER/CT negative, HER-2 negative (triplenegative). Status post preop [...] presacral space. The patient was referred to [facility] colorectal surgery (Dr. Lorenzo) and underwent surgical excision on 06/19/2020. Final pathology confirmed an epidermoid cyst with negative margins. Observation recommended. She has had no evidence ofrecurrence. Will monitor clinically and reevaluate as indicated [...] consider referral to neurology for additional recommendations. Jacob Mercado MD documented in this encounterOhio[facility]01-24-2024 Evaluation note* Encounter Date Diagnosis Assessment Notes Treatment Notes Treatment Clinical Notes May, Lumbar stenosis with neurogenic claudication (ICD-10 - M48.062) Renuka is doing very well, her radicular symptoms are completely gone. She does feel that her leg is weak, and complains of balance issues. I am not sure if the balance issues are from the leg weakness or from cardiac medications that have been changed. We have encouraged her to follow-up with a manager transport. I will send her to therapy for gait training and leg strengthening. I reviewed the x-ray of the lumbar spine showing good bony alignment good hardware placement and shared these with the patient. I will see her again in 1 month. May,History of lumbar fusion (ICD-10 - Z98.1) May,oor balance (ICD-10 - R26.89) [facility] Other 01-05-2024 Evaluation note* Encounter Date Diagnosis Assessment Notes Treatment Notes Treatment Clinical Notes May, Acute bronchitis due to other sp ecified organisms (ICD-10 - J20.8) Instructed to use Robitussin or Mucinex for cough, saline or Flonase NS for congestion, Tylenol forpain and fever. No improvement, call for office visit. [facility] Other 12-28-2023 Evaluation note* Encounter Date Diagnosis Assessment Notes Treatment Notes Treatment Clinical Notes Apr, Acute bilateral low back pain wi thout sciatica (ICD-10 - M54.50) [facility] Other 12-28-2023 Evaluation note* Encounter Date Diagnosis Assessment Notes Treatment Notes Treatment Clinical Notes Apr, Primary hypertension (ICD-10 - I 10) This patient is instructed to consume a healthy, low-fat, low-salt diet. They are also encouraged to continue exercise to achieve/maintain a normal BMI. Apr,Hypertrophic nonobstructive cardiomyopathy (ICD-10 - I42.2)Control fluid status, maintain euvolemic state - daily weights Adequate control of BP Low salt diet, exercise Apr,Stage 3a chronic kidney disease (ICD-10 - N18.31)The patient is instructed on adequate control of hypertension and diabetes, if appropriate. They are also educated on the associated risks of NSAIDs and PPI use with kidney disease. They were instructed on adequate fluid balance and to avoid dehydration. Started Torsemide for fluid retention. Check BMP and BNP Apr,hronic venous insufficiency (ICD-10 - I87.2)Avoid salt and elevate lower extremities, support stockings, inspect legs and feet daily for blisters and ulcerations. Continue Torsemide Apr,astroesophageal reflux disease with esophagitis without hemorrhage (ICD-10 - K21.00)Avoid lying flat after eating. Avoid eating 2 hours prior to bedtime. Smaller, frequent meals may be better tolerated.Weight loss if overweight.PPI with any heartburn.Monitor for dysphagia. Apr,Lumbar stenosis with neurogenic claudication (ICD-10 - M48.062)The patient is instructed to avoid bending, twisting or lifting. They are to use intermittent heat and ice as needed. They may schedule a massage or gentle manipulation. They may safely use Tylenol as needed. s/p PLIF in April - resolution of leg pain - continues to wear brace Apr,History of lumbar fusion (ICD-10 - Z98.1) [facility] Other 12-26-2023 Evaluation note* Encounter Date Diagnosis Assessment Notes Treatment Notes Treatment Clinical Notes Apr, Lumbar stenosis with neurogenic claudication (ICD-10 - M48.062) Wound is healing well, the patient has good resolution of her leg pain and getting her strength back. She is very happy with her progress. She will see us in a month with an x-ray of her spine. Apr,History of lumbar fusion (ICD-10 - Z98.1) [facility] Other 12-18-2023 Progress note Author Saman Marino [facility] April 19, 2023 2:35pmNote Date/TimeDece2022 2:35pm[place] [address] Physiatry(Rehab) Progress Note Signed Patient: Renuka Owen MR#: [id number] : 1950 Acct:[id number] Age/Sex: 72 / F Adm Date: 3 Loc: Room: 1N0125-1 Type: ADM IN Attending Dr: Saman Marino [...] extremity pain and weakness in January which prog ressively became worse. Neurosurgery recommended operative intervention. Patient underwent L3-L4 decompressive laminectomy, removal of all old hardware, pedicle screws, interbody cage, L3-4 fusion. No major postoperative complications. Patient was recommended acute rehab for strengthening. On admission she reports some incisional back pain. Bilateral lower extremity pain and numbness have nearly resolved. She reports no bladder or bowel issues. No other concerns or complaints. Prior toadmission patient was fully independent and lived alone. [...] mg 04/15/23 16:39 Bisacodyl [address] 04/14/24 16:38 DAILY PRN Constipation Calcium Carbonate [...] 16:39 Docusate Enema 283 Mg/[address] 04/14/24 16:38 DAILY PRN Constipation Enalapril Maleate 2.5 mg 04/15/23 21:00 04/19/23 09:02 Enalapril Maleate 5 Mg Tablet PO 04/14/24 20:59 Not Given BID JUSTYN Fluticasone Propionate 2 spray 04/15/23 16:34 Fluticasone Propionate Hurricane 120 Hurricane/16 Gm Bottle INTRANASAL 04/14/24 16:33 DAILY PRN [...] 04/16/23 09:00 04/19/23 09:01 Pantoprazole 40 Mg Tablet.Dr PO 04/15/24 08:59 40 mg DAILY JUSTYN [...] equipment to enhance the patient's a functional orthodox Ensure adequate nutrition and hydration Sleep: No issues Pain: Reasonably controlled current regimen Discharge planning: Home tomorrow. I completed a substantive portion of this encounter, the medical decision makingportion of this note in its entirety, including Allied health note review, nursing note review, ada accommodation consultant note review,discussion with nursing and case management, and more than 50% of my time was spent on counseling and coordination of care, time spent 35 minutes Patient was personally seen by me, Dr. Marino, on the day of encounter, I reviewed the history and the relevant portions of the chart, including current orders, allied health and ada accommodation consultant notes, labs/imaging and performed butts elements of exam and I formulated the plan of care and facilitated the medical decision making. Documented By: Saman Marino MD 04/19/23 1434 Signed By: <Electronically signed by Saman Marino MD> 04/19/23 1435 [facility] Work Phone: 1(433) 524-650112-18-2023 Hospital Discharge instructionsAmbulatory Orders* Initiate Home Health [...] as needed. Your Home Health agency is [facility] ( ). They will contact you 24-48 [...] office to inform them prior to your appointment.[facility] Work Phone: [phone] 224-861412-16-2023 Progress note Author Saman Marino [facility] April 17, 2023 12:23pmNote Date/TimeDecemb2022 12:23pm[place] [address] Physiatry(Rehab) Progress Note Signed Patient: Renuka Owen MR#: [id number] : 1950 Acct:[id number] Age/Sex: 72 / F Adm Date: 3 Loc: Room: 2J2781-5 Type: ADM IN Attending Dr: Saman Marino [...] extremity pain and weakness in January which prog ressively became worse. Neurosurgery recommended operative intervention. Patient underwent L3-L4 decompressive laminectomy, removal of all old hardware, pedicle screws, interbody cage, L3-4 fusion. No major postoperative complications. Patient was recommended acute rehab for strengthening. On admission she reports some incisional back pain. Bilateral lower extremity pain and numbness have nearly resolved. She reports no bladder or bowel issues. No other concerns or complaints. Prior toadmission patient was fully independent and lived alone. [...] mg 04/15/23 16:39 Bisacodyl [address] 04/14/24 16:38 DAILY PRN Constipation Calcium Carbonate [...] 16:39 Docusate Enema 283 Mg/[address] 04/14/24 16:38 DAILY PRN Constipation Enalapril Maleate 2.5 mg 04/15/23 21:00 04/17/23 08:45 Enalapril Maleate 5 Mg Tablet PO 04/14/24 20:59 Not Given BID JUSTNY Fluticasone Propionate 2 spray 04/15/23 16:34 Fluticasone Propionate Hurricane 120 Hurricane/16 Gm Bottle INTRANASAL 04/14/24 16:33 DAILY PRN [...] 04/16/23 09:00 04/17/23 08:43 Pantoprazole 40 Mg Tablet.Dr PO 04/15/24 08:59 40 mg DAILY JUSTYN [...] equipment to enhance the patient's a functional orthodox Ensure adequate nutrition and hydration Sleep: No issues Pain: Reasonably controlled current regimen Discharge planning: Home in a week or so. I completed a substantive portion of this encounter, the medical decision makingportion of this note in its entirety, including Allied health note review, nursing note review, ada accommodation consultant note review,discussion with nursing and case management, and more than 50% of my time was spent on counseling and coordination of care, time spent 35 minutes Patient was personally seen by me, Dr. Marino, on the day of encounter, I reviewed the history and the relevant portions of the chart, including current orders, allied health and ada accommodation consultant notes, labs/imaging and performed butts elements of exam and I formulated the plan of care and facilitated the medical decision making. Documented By: Saman Marino MD 04/17/231 Signed By: <Electronically signed by Saman Marino MD> 04/17/233 [facility] Work Phone: 1(277) 956-441712-15-2023 History and physical note Author Saman Marino [facility] April 16, 2023 1:42pmNote Date/TimeDecember 2022 11:19[place] [address] Physiatry (Rehab) H&P Signed Patient: Renuka Owen MR#: [id number] : 1950 Acct:[id number] Age/Sex: 72 / F Adm Date: 3 Loc: Room: [address] [place] [address] Type: ADM IN Attending Dr: Saman Marino MD Copies to: NON STAFF Marley Mendieta, DISPATCH CLERK Saman Marion MD~ Date of Service: 04/16/2023 HPI The [...] extremity pain and weakness in January which prog ressively became worse. Neurosurgery recommended operative intervention. Patient underwent L3-L4 decompressive laminectomy, removal of all old hardware, pedicle screws, interbody cage, L3-4 fusion. No major postoperative complications. Patient was recommended acute rehab for strengthening. On admission she reports some incisional back pain. Bilateral lower extremity pain and numbness have nearly resolved. She reports no bladder or bowel issues. No other concerns or complaints. Prior toadmission patient was fully independent and lived alone. Recently she has been using a cane for ambulation. [facility] Medical History Arthritis Breast cancer left DDD [...] Stop: 04/14/24 16:38 Aspirin (Aspirin 81 Mg Tablet.) 81 mg PO DAILY [facility] Stop: 04/15/24 08:59 Last Admin: 04/16/23 08:34 Dose: 81 mg Bisacodyl (Bisacodyl 10 Mg Supp.Rect) [address] DAILY PRN PRN Reason: Constipation Stop: 04/14/24 16:38 Calcium Carbonate (Calcium Carbonate/Vitamin D3 500 Mg/200 Unit Tablet) 1 tab PO BID [facility] Stop: 04/14/24 20:59 Last Admin: 04/16/23 08:41 Dose: 1 tab Carvedilol (Carvedilol 6.25 Mg Tablet) 6.25 mg PO BID.WITH.MEALS JUSTYN Stop: 04/14/24 16:59 Last Admin: 04/16/23 08:35 Dose: 6.25 mg Cyclobenzaprine HCl (Cyclobenzaprine 10 Mg Tablet) 10 mg PO Q8HR PRN PRN Reason: Spasms Stop: 04/14/24 16:33 Last Admin: 04/16/23 10:16 Dose: 10 mg Docusate Sodium (Docusate 100 Mg Capsule) 100 mg PO BID PRN PRN Reason: Constipation Stop: 04/14/24 16:38 Docusate Sodium (Docusate Enema 283 Mg/5 Ml Enema) [address] DAILY PRN PRN Reason: Constipation Stop: 04/14/24 16:38 Enalapril Maleate (Enalapril Maleate 5 Mg Tablet) 2.5 mg PO BID [facility] Stop: 04/14/24 20:59 Last Admin: 04/16/23 08:41 Dose: 2.5 mg Fluticasone Propionate (Fluticasone Propionate Hurricane 120 Hurricane/16 Gm Bottle) 2 spray INTRANASAL DAILY PRN PRN Reason: Nasal Congestion Stop: 04/14/24 16:33 Gabapentin (Gabapentin 300 Mg Capsule) 300 mg PO QAM [facility] Stop: 04/15/24 08:59 Last Admin: 04/16/23 08:34 Dose: 300 mg Gabapentin (Gabapentin 300 Mg Capsule) 600 mg PO BID@1400,2200 [facility] Stop: 04/14/24 21:59 Last Admin: 04/15/23 21:11 Dose: 600 mg Hydrochlorothiazide (Hydrochlorothiazide 25 Mg Tablet) 25 mg PO DAILY JUSTYN Stop: 04/15/24 08:59 Last Admin: 04/16/23 08:33 [...] 10 mg Pantoprazole Sodium (Pantoprazole 40 Mg Tablet.) 40 mg PO DAILY [facility] Stop: 04/15/24 08:59 Last Admin: 04/16/23 08:35 Dose: 40 mg Senna/Docusate Sodium (Sennosides/Docusate 8.6-50mg 1 Tab Tablet) 2 tab PO BID [facility] Stop: 04/14/24 20:59 Last Admin: 04/16/23 08:35 Dose: 2 tab Sennosides (Sennosides 8.6 Mg Tablet) 2 tab PO DAILY@12 PRN PRN Reason: If no BM in 2 days Stop: 04/15/24 11:59 Sodium Chloride (Sodium Chloride 0.9 % 10 Ml Syringe) 0 ml IV-PUSH PRN PRN PRN Reason: Flush Stop: 04/14/24 16:38 Torsemide (Torsemide 20 Mg Tablet) 20 mg PO DAILY [facility] Stop: 04/15/24 08:59 Last Admin: 04/16/23 08:35 [...] % (Auto) 67.0 Lymph % (Auto) 18.4 Graham % (Auto) 13.9 Eos % (Auto) 0.3 Baso % (Auto) 0.4 Nucleat RBC Rel Count 0.1 Neut # (Auto) 6.5 Lymph # (Auto) 1.8 Graham # (Auto) 1.4 H Eos # (Auto) [...] and obtained and summated medical records and haveordered follow up lab tests and imaging studies as needed for rehabilitation care. Functional Status Prior Level of Function Narrative: Previously independent Current Level of Function Narrative: Ambulatory 145 feet with a wheeled walker and standby assist. CGA/min assist with transfers and bedmobility. Individualized Plan of Care Individualized Plan of Care Plan of Care: Individualized Overall Plan of Care: Admit Date/Time: April 15, 2023 Expected LOS: 2 weeks Expected Discharge Destination: Home Rehabilitation IGC: 08.9 Primary Diagnosis: Lumbar stenosis s/p multilevel [...] improve pt's strength, endurance, bed mobility, transfers (sit- stand), standing balance, gait quality on level surfaces [...] additional therapy on as needed basis. Comments: INFORMATION SYSTEMS ARCHITECT to evaluate and treat patient?s cognition, language and communication skills, assess swallow function. Other: Dietitian, Rehab nursing, Wound, P&O, Neuropsychology as needed RATIONALE FOR IRF ADMISSION: Patient has both medical and functional complexities that require 24 hour daily monitoring and intervention from Emergency Veterinary Assistant as well as other consulting physicians including internal medicine as well as 24 hour daily search engine optimization specialist nursing - for medical safe / optimal manageme nt. Patient requires interdisciplinary therapy team rehabilitation care including OT, PT, INFORMATION SYSTEMS ARCHITECT, SW, Psychology, Rehab Nursing, requires and can [...] equipment to enhance the patient's a functional orthodox Ensure adequate nutrition and hydration Sleep: No issues Pain: Reasonably controlled current regimen Discharge planning: Home in a week or so. I spent greater than 35 minutes for services, including [id number] encounter with the patient, discussion of the case, plan of care, and exam; and [id number] activities, such as reviewing pertinent ada accommodation consultant documentation, recent therapy notes, laboratory and radiology studies, and discussion of case with care team including physician, nursing, pillowcase folder, and therapists. More than 50 % of time was spent on patient/family counseling or coordination ofcare. I completed a substantive portion of this encounter, the medical decision makingportion of this note in its entirety, including Allied health note review, nursing note review, ada accommodation consultant note review,discussion with nursing and case management, and more than 50% of my time was spent on counseling and coordination of care, time spent 70 minutes Patient was personally seen by me, Dr. Marino, on the day of encounter, within 24hours of rehab admission, reviewed the history and the relevant portions of the chart, including current orders, alliedhealth and ada accommodation consultant notes, labs/imaging and performed butts elements of exam and I formulated the plan of care and facilitated the medical decision making. Documented By: Marley Mendieta APRN 04/16/23 1 112 Signed By: <Electronically signed by CASSIA Mendieta> 04/16/23 1158 <Electronically signed by Saman Marino MD> 04/16/23 1342 [facility] Work Phone: 1([phone]) 259-253511-21-2023 Evaluation note* Encounter Date Diagnosis Assessment Notes Treatment Notes Treatment Clinical Notes Mar, Acute bilateral low back pain wi thout sciatica (ICD-10 - M54.50) [facility] Other 11-16-2023 History of Present illness Narrative* [...] Left ventricular systolic dysfunction [facility] Work Phone: 1(202) 933-887411-16-2023 Instructions* Patient Instructions* Priscilla Gramajo LPN - [...] to hold Aspirin asdirected. documented in [facility]South[facility] Work Phone: 1(247) 816-752311-08-2023 Evaluation note* Encounter Date Diagnosis Assessment Notes Treatment Notes Treatment Clinical Notes Mar, Encounter for gyneco logical examination without abnormal finding (ICD-10 - Z01.419) [...] watch for pap results, call patient. Consider PLANNER/SCHEDULER referral for possible pessary.. She is having back surgery soon and may consider further rn gyn appts after surgery. [facility] Other 10-31-2023 History of Present illness Narrative* [...] 2.5 mg twice daily. Bryce Hendrickson MD, [facility] Review of Systems All other systems reviewed [...] linked to this encounter. documented in this [facility]South[facility] Work Phone: [phone]) 762-752510-31-2023 Instructions* Patient Instructions* Julito Westbrook LPN - 03/02/2023 10:00 AM EDT Please bring all medicines, vitamins, and herbal supplements with you when you come to the office. Prescriptions will not be filled unless you are compliant with your follow up appointments or have a follow up appointment scheduled as per instruction of your physician. Refills should be requested at the time of your visit. documented in this [facility]South[facility] Work Phone: 1(745) 378-454710-30-2023 Evaluation note* Encounter Date Diagnosis Assessment Notes Treatment Notes Treatment Clinical Notes Jan, Dysuria (ICD-10 - R30.0) [facility] Other 10-26-2023 Evaluation note* Encounter Date Diagnosis Assessment Notes Treatment Notes Treatment Clinical Notes Jan, Lumbar stenosis with neurogenic claudication (ICD-10 - M48.062) Independently reviewed the MRI of the lumbar spine and the report. This patient has severe stenosisat L3-4 Which is significantly worse than her previous study. Patient has definitely got neurogenicclaudication is incapacitated by symptoms. She can no [...] would like to proceed with surgical intervention. Jan,History of lumbar fusion (ICD-10 - Z98.1) [facility] Other 10-23-2023 Evaluation note* Encounter Date Diagnosis Assessment Notes Treatment Notes Treatment Clinical Notes Jan, Acute bilateral low back pain wi thout sciatica (ICD-10 - M54.50) [facility] Other 10-23-2023 Evaluation note* Encounter Date Diagnosis Assessment Notes Treatment Notes Treatment Clinical Notes Jan, Dysuria (ICD-10 - R30.0) [facility] Other 10-02-2023 Evaluation note* Encounter Date Diagnosis Assessment Notes Treatment Notes Treatment Clinical Notes Jan, Osteopenia of left forearm (ICD- 10 - M85.832) [employer] [facility] Other 09-21-2023 Evaluation note* Encounter Date Diagnosis [...] of the lumbar spine to ensure there isno new pathology which could be causing her symptoms. Depending on findings a plan will be made. Jan,History of lumbar fusion (ICD-10 - Z98.1) Jan,ge-related osteoporosis without current pathological fracture (ICD- 10 - M81.0) Jan,ain in right hip (ICD-10 - M25.551) Jan,ain in left hip (ICD-10 - M25.552) [employer] [facility] Other 09-07-2023 Evaluation note* Encounter Date Diagnosis [...] reviewed and amended by provider signed below. Jan,Stage 3a chronic kidney disease (ICD-10 - N18.31)The patient is instructed on adequate control of hypertension and diabetes, if appropriate. They are also educated on the associated risks of NSAIDs and PPI use with kidney disease. They were instructed on adequate fluid balance and to avoid dehydration. Jan,rimary hypertension (ICD-10 - I10)This patient is instructed to consume a healthy, low-fat, low-salt diet. They are also encouraged to continue exercise to achieve/maintain a normal BMI. Jan,Lumbar spondylosis (ICD-10 - M47.816)The patient is instructed to avoid bending, twisting or lifting. They are to use intermittent heat and ice as needed. They may schedule a massage or gentle manipulation. They may safely use Tylenol as needed. Jan,astroesophageal reflux disease with esophagitis without hemorrhage (ICD-10 - K21.00)Diet instructions: Smaller portions, avoid eating and laying flat, avoid eating or drinking prior to bedtime. Weight loss. Jan,Screening mammogram for breast cancer (ICD-10 - Z12.31)UtD w/ surveillance mammograms w/ Oncology Instructed patient on monthly SBE and yearly mammograms. Jan,cute bilateral low back pain without sciatica (ICD-10 - M54.50) Heat/ice and lidocaine patches Stretching exercises. Tramadol/Prednisone Discussed PT, pain management Jan,rimary insomnia (ICD-10 - F51.01)COnsistent sleep routine. Avoid eating, exercise, TV, Phone, computer prior to bedtime Jan,Fatigue, unspecified type (ICD-10 - R53.83)check labs: CBC, BS, TSH [facility] [facility] Other 04-14-2023 Evaluation note* Encounter Date Diagnosis Assessment Notes Treatment Notes Treatment Clinical Notes Aug, Benign hypertension with chronic kidney disease, stage III (ICD-10 - I12.9) [facility] [facility] Other 04-04-2023 Evaluation note* Encounter Date Diagnosis Assessment Notes Treatment Notes Treatment Clinical Notes Aug, Overactive bladder (ICD-10 - N32 .81) [facility] [facility] Other 03-16-2023 Evaluation note* Encounter Date Diagnosis Assessment Notes Treatment Notes Treatment Clinical Notes Jul, Overactive bladder (ICD-10 - N32 .81) Timed voiding recommended. Avoid caffeine TRial of antispasmodic Jul,Overweight (BMI 25.0-29.9) (ICD-10 - E66.3)This patient has been instructed on a low-fat, high-fiber diet. They are instructed to reduce calori es, portion sizes and snacks. It is recommended that they exercise for 30 minutes, 3-5 times weekly. [facility] [facility] Other 02-21-2023 Evaluation note* Encounter Date Diagnosis Assessment Notes Treatment Notes Treatment Clinical Notes Jun, Spondylolisthesis, lumbar region (ICD-10 - M43.16) At 3 months postop the patient now can leave her brace.She has good relief of Her leg pain. She is very happy with her progress I will see her back in 3 months with an x-ray.Her x-ray today looks good. [facility] Other 01-20-2023 Evaluation note* Encounter Date Diagnosis Assessment Notes Treatment Notes Treatment Clinical Notes May, Dysuria (ICD-10 - R30.0) [employer] [facility] Other 01-17-2023 History of Present illness Narrative* Jacob Mercado MD - 05/19/2022 8:05 AM EST PATIENT NAME: Renuka Owen DATE: 05/19/2022 PRIMARY CARE PHYSICIAN: Dr. Sylvester Jacob OTHER PHYSICIANS: Dr. Coley, Dr. Artur [...] pain on 05/10/2022. She was seen at [facility] emergency room and admitted for evaluation. Chest CTA was negative. Cardiac work-up was negative. Apparently she was given IV NSAID, and the painresolved instantly. Most likely she had acute pleurisy. She has had no recurrent symptoms. However,she plans to follow-up with her manager transport and is scheduled to undergo a stress [...] 04/08/2021 308 RADIOLOGY/OTHER STUDIES: 05/10/2022 Chest CTA ([facility]) No evidence for acute pulmonary embolism, thoracic aortic aneurysm, or aortic dissection. Mild cardiomegaly with trace 3 mm thick pericardial effusion. Mosaic attenuation of the bilateral lungs reflect sequelae of reactive airway inflammation. Moderate bilateral upper and lower lung linear scar. 02/05/2022 Diagnostic right mammogram ([facility]) Benign finding. No change from comparison. Recommend routine mammogram in 12 months. 04/08/2020 CT abdomen/pelvis ([facility]). 6.4 x 3.3 cm soft tissue [...] advanced left breast cancer diagnosed March 2011. ER/CT negative, HER-2 negative (triplenegative). Status post preop [...] presacral space. The patient was referred to [facility] colorectal surgery (Dr. Lorenzo) and underwent surgical excision on 06/19/2020. Final [...] chest pain 05/10/2022. She was seen at [facility] emergency room and admitted for evaluation. Chest CTA was negative. Cardiac work-up was negative. Apparently she was given IV NSAID, and the pain resolved instantly. Most likely she had acute pleurisy. She has had no recurrent symptoms. Currently the patient plans to follow-up with her manager transport and is scheduled to undergo a stress test. Jacob Mercado MD [facility]* Encounter Date Diagnosis Assessment Notes Treatment Notes Treatment Clinical Notes May, Spondylolisthesis, lumbar region (ICD-10 - M43.16) Ms. Owen is doing well status post op 6 weeks PLIF states all symptoms are gone. Has an occasionallow back pain. I independently reviewed the x-ray of the lumbar spine which shows good bony alignment and hardware placement and mild disc space narrowing noted. States completed physical therapy andcontinues to do the exercises at home. Will continue with wearing LSO brace and follow-up in 6 weeks with another xray May,ge-related osteoporosis without current pathological fracture (ICD- 10 - M81.0) May,Fusion of lumbar spine (ICD-10 - M43.26) [facility] Other 01-05-2023 Evaluation note* Encounter Date Diagnosis Assessment Notes Treatment Notes Treatment Clinical Notes May, Primary hypertension (ICD-10 - I 10) May,Spondylolisthesis, lumbar region (ICD-10 - M43.16) [facility] [facility] Other 12-13-2022 Evaluation note* Encounter Date Diagnosis Assessment Notes Treatment Notes Treatment Clinical Notes Apr, Spondylolisthesis, lumbar region (ICD-10 - M43.16) She is doing well post operative, denies pain and over all looks good. Wound healed and well approximated, clean dry and intact. Removed 20 lazara. Will continue with physical therpay. Xray ordered and follow up in 4 weeks [facility] [facility] Other 11-30-2022 Progress note Author Vivi Biggs [facility] April 01, 2022 8:09amNote Date/TimeNovember 2021 7:37[place] [address] Neurosurgery Progress Note Signed Patient: Renuka Owen MR#: [id number] : 1950 Acct:[id number] Age/Sex: 71 / F Adm Date: 2 Loc: 4 Room: [address] [place] [address] Type: REG SDC Attending Dr: Devin Moreau [...] [place] [address]28 Signed By: <Electronically signed by [facility] Vivi Biggs> 04/01/22 0809 <Electronically signed by MD Devin Moreau> 03/31/22 0737 [facility] Work Phone: 1(914) 189-139611-29-2022 Hospital Discharge instructionsAmbulatory Orders* Initiate Home Health [...] it does not do not use the [facility]oneK[facility] Work Phone: [phone]) 101-290109-20-2022 Evaluation note* Encounter Date Diagnosis Assessment Notes Treatment Notes Treatment Clinical Notes Jan, Spondylolisthesis, lumbar region (ICD-10 - M43.16) I reviewed my last note I again reviewed the MRI of the lumbar spine and the new MRI of the lumbar spine that shows a probable synovial cyst on the left at L4-5. Jan,rthropathy of left hip (ICD-10 - M16.12)This patient's pain is only at her hip. She went to orthopedics and I requested a therapeutic diagnostic interarticular hip injection and a trigger point sacroiliac injection was done instead that did not provide a great deal of benefit. I think this has delayed the patient's care, as I still thinkgae has primary hip pathology. I am recommending pain management for a intra-articular diagnostic therapeutic left hip injection. I suspect the majority of her pain is coming from this, I doubt at this point it is coming from the findings on the MRI. I will see the patient back in about 6 weeks [facility] Other 08-30-2022 Evaluation note* Encounter Date Diagnosis Assessment Notes Treatment Notes Treatment Clinical Notes Dec, Arthropathy of left hip (ICD-10 - M16.12) Dec,pondylolisthesis, lumbar region (ICD-10 - M43.16)This patient has had good relief overall of [...] will see her back in 6 weeks [facility] Other 07-05-2022 Evaluation note* Encounter Date Diagnosis [...] the office in 2 months for reevaluation. [employer] [facility] Other 06-09-2022 Progress note Author Devin Moreau [facility] October 09, 2021 7:38amNote Date/TimeJune 2021 7:38[place] [address] Neurosurgery Progress Note Signed Patient: Renuka Owen MR#: [id number] : 1950 Acct:[id number] Age/Sex: 70 / F Adm Date: 2 Loc: 4N Room: 9H1524-1 Type : REG [facility] Attending Dr: Devin Moreau MD Copies to: [...] signed by MD Devin Moreau> 10/09/21 0738 [facility] Work Phone: [phone]) [phone] Evaluation note* Encounter Date Diagnosis Assessment Notes Treatment Notes Treatment Clinical Notes Aug, Spondylolisthesis, lumbar region (ICD-10 - M43.16) Aug,Lumbar stenosis with neurogenic claudication (ICD-10 - M48.062)I have independently reviewed the MRI of the lumbar spine and the plain x-ray with flexion and extension views and the DEXA scan. The patient's DEXA scan shows a - 2.5 in the forearm which is indicative of [...] mild spondylolisthesis L4-5 and L3-4. I think L4-5is more symptomatic right more than left. On flexion-extension view she has no abnormal motion or instability. I am recommending a simple decompressive lumbar laminectomy. She may need a future fusion, it is difficult to say, but I think this may help solve her problems. She has existing atherosclerotic heart disease and needs cardiac clearance. She was actually due to see her manager transport today and she canceled because of her [...] end of August or beginning of October. Aug,ge-related osteoporosis without current pathological fracture (ICD- 10 - M81.0) [employer] Other 02-17-2021 History of Past illness Narrative* Problem Noted DateResolved DateRectal tumor/1documented as of this encounter (statuses as of 05/08/2022) [facility] History of Past illness Narrative* ProblemNoted Date Resolved DateRectal tumor/1documented as of this encounter (statuses as of 05/20/2022) [facility] History of Past illness Narrative* ProblemNoted Date Diagnosed DateResolved DateRectal tumor/1documented as of this encounter (statuses as of 06/23/2023) [facility] HospitalDis[facility] summary Author Devin Moreau [facility] April 01, 2022 10:58amNote Date/TimeNovember 2021 10:[address] [address] Discharge Summary Signed Patient: Renuka Owen MR#: [id number] : 1950 Acct:[id number] Age/Sex: 71 / F Adm Date: 2 Loc: 4N Room: 2N0918-[address]: Devin Moreau MD Copies to: DO Devin Jama MD~ Providers Date of Admission: 03/30/22 Date of Discharge: 04/01/22 Discharging Provider: Devin Moreau Primary Care Provider: Sylvester Jacob Consults: 03/30/22 11:36 Consult to Occupational [...] felt that she has had increased instability shehas developed a synovial cyst on her joints [...] signed by MD Devin Moreau> 04/01/22 1058 [facility] Work Phone: Evaluation noteNo assessment information available [facility] Work Phone: Evaluation note* Diagnosis Onset Date Resolution Status Lumbar stenosis without neurogenic my ication acute [facility] Work Phone: Evaluation noteNo InformationNort [employer] Other evaluation note* Diagnosis Malignant neoplasm of left breast in female, estrogen receptor negative, unspecified site of breast(HCC) 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 documented [facility] this encounter [facility]* Diagnosis Malignant neoplasm of upper-outer quadrant of left breast in female, estrogen receptor negative (HCC)- Primary documented in this encounter [facility]* Diagnosis Mitral valve insufficiency, unspecified etiology Essential hypertension Unspecified essential hypertension Edema, unspecified type LBBB (left bundle branch block) Other left bundle branch block documented in this encounter [facility] Work Phone: Evaluation note* Diagnosis Mitral valve insufficiency, unspecified etiology- Primary Essential hypertension Unspecified essential hypertension Overweight with body mass index (BMI) of 29 to 29.9 in adult Edema, unspecified type Left ventricular systolic dysfunction documented in this encounter [facility] Work Phone: Evaluation note* Diagnosis Onset Date Resolution Status GERD (gastroesophageal reflux disease) acuteImpaired mobility and activities of daily livingacuteLeft bundle branch blockacuteLumbar stenosis without neurogenic claudicationacuteNeuropathyacute OsteoporosisacutePostoperative painacuteImpaired mobility and activities of daily livingacuteLeft bundle branch blockacuteLumbar stenosis without neurogenic claudicationacuteNeuropathyacutePostoperative painacute [facility] Work Phone: Evaluation note* Diagnosis Onset Date Resolution Status GERD (gastroesophageal reflux disease) acuteImpaired mobility and activities of daily livingacuteLeft bundle branch blockacuteLumbar stenosis without neurogenic claudicationacuteNeuropathyacute OsteoporosisacutePostoperative painacuteImpaired mobility and activities of daily livingacuteLeft bundle branch blockacuteLumbar stenosis without neurogenic claudicationacuteNeuropathyacutePostoperative painacuteLumbar adjacent segment disease with spondylolisthesisacuteSpondylolisthesis, lumbar regionacuteStatus post lumbar spinal fusionacute [facility] Work Phone: Evaluation note* Diagnosis Malignant neoplasm of upper-outer quadrant of left breast in female, estrogen receptor negative (HCC) (HCC)- Primary 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 [facility]* Diagnosis Mitral valve insufficiency, unspecified etiology Essential hypertension Unspecified essential hypertension Left ventricular systolic dysfunction BMI 29.0-29.9,adult Never smoked tobacco documented in this encounter [facility] Work Phone: Evaluation note* Diagnosis Onset Date Resolution Status Lumbar adjacent segment disease with spo ndylolisthesis acuteSpondylolisthesis, lumbar regionacuteStatus post lumbar spinal fusionacute Inflammation of right sacroiliac jointacuteLumbar adjacent segment disease with spondylolisthesisacuteSpondylolisthesis, lumbar regionacuteStatus post lumbar spinal fusionacute [facility] Work Phone: Evaluation note* Diagnosis Onset Date Resolution Status Lumbar adjacent segment disease with spo ndylolisthesis acuteSpondylolisthesis, lumbar regionacuteStatus post lumbar spinal fusionacute Inflammation of right sacroiliac jointacuteLumbar adjacent segment disease with spondylolisthesisacuteSpondylolisthesis, lumbar regionacuteStatus post lumbar spinal fusionacuteChronic painacuteOther low back painacuteSacroiliitis, not elsewhere classifiedacute [facility] Work Phone: Evaluation note* Diagnosis Onset Date Resolution Status Inflammation of right sacroiliac joint acuteLumbar adjacent segment disease with spondylolisthesisacute Spondylolisthesis, lumbar regionacuteStatus post lumbar spinal fusionacute Chronic painacuteOther low back painacuteSacroiliitis, not elsewhere classified acuteChemotherapy-induced peripheral neuropathyacuteChronic venous insufficiency of lower extremityacuteLumbar spondylosisacuteNocturnal leg crampsacuteChronic painacuteOther low back painacuteSacroiliitis, not elsewhere classifiedacute [facility] Work Phone: Evaluation note* Diagnosis Onset Date Resolution Status Chronic pain acuteOther low back painacuteSacroiliitis, not elsewhere classifiedacute Chemotherapy-induced peripheral neuropathyacuteChronic venous insufficiency of lower extremityacuteLumbar spondylosisacuteNocturnal leg crampsacuteChronic pain acuteOther low back painacuteSacroiliitis, not elsewhere classifiedacuteLumbar spondylosisacuteStatus post lumbar spinal fusionacute [facility] Work Phone: Evaluation note* Diagnosis Onset Date Resolution Status Chronic pain acuteOther low back painacuteSacroiliitis, not elsewhere classifiedacute Chemotherapy-induced peripheral neuropathyacuteChronic venous insufficiency of lower extremityacuteLumbar spondylosisacuteNocturnal leg crampsacuteChronic pain acuteOther low back painacuteSacroiliitis, not elsewhere classifiedacuteLumbar spondylosisacuteStatus post lumbar spinal fusionacuteSinusitisacute [facility] Work Phone: Evaluation note* Diagnosis Onset Date Resolution Status Chemotherapy-induced peripheral neuropat hy acuteChronic venous insufficiency of lower extremityacuteLumbar spondylosisacute Nocturnal leg crampsacuteChronic painacuteOther low back painacuteSacroiliitis, not elsewhere classifiedacuteLumbar spondylosisacuteStatus post lumbar spinal fusionacuteSinusitisacuteChronic painacuteOther low back painacuteSacroiliitis, not elsewhere classifiedacute [facility] Work Phone: Evaluation note* Diagnosis Onset Date Resolution Status Chemotherapy-induced peripheral neuropat hy acuteChronic venous insufficiency of lower extremityacuteLumbar spondylosisacute Nocturnal leg crampsacuteChronic painacuteOther low back painacuteSacroiliitis, not elsewhere classifiedacuteLumbar spondylosisacuteStatus post lumbar spinal fusionacuteSinusitisacuteChronic painacuteOther low back painacuteSacroiliitis, not elsewhere classifiedacuteDegenerative arthritis of left footacuteLeft foot painacute [facility] Work Phone: Evaluation note* Diagnosis Onset Date Resolution Status Chronic pain acuteOther low back painacuteSacroiliitis, not elsewhere classifiedacuteLumbar spondylosisacuteStatus post lumbar spinal fusionacuteSinusitisacuteChronic pain acuteOther low back painacuteSacroiliitis, not elsewhere classifiedacute Degenerative arthritis of left footacuteLeft foot painacute [facility] Work Phone: Evaluation note* Diagnosis Onset Date Resolution Status Lumbar spondylosis acuteStatus post lumbar spinal fusionacuteSinusitisacuteChronic painacuteOther low back painacuteSacroiliitis, not elsewhere classifiedacuteDegenerative arthritis of left footacuteLeft foot painacuteChronic painacuteOther low back painacuteSacroiliitis, not elsewhere classifiedacute [facility] Work Phone: Evaluation note* Diagnosis Onset Date Resolution Status Chronic pain acuteOther low back painacuteSacroiliitis, not elsewhere classifiedacute Degenerative arthritis of left footacuteLeft foot painacuteChronic painacute Other low back painacuteSacroiliitis, not elsewhere classifiedacuteHistory of lumbar fusionacutePain of right sacroiliac jointacute [facility] Work Phone: Evaluation note* Diagnosis Onset Date Resolution Status Degenerative arthritis of left foot acuteLeft foot painacuteChronic painacuteOther low back painacuteSacroiliitis, not elsewhere classifiedacuteHistory of lumbar fusionacutePain of right sacroiliac jointacuteChemotherapy-induced peripheral neuropathyacuteChronic venous insufficiency of lower extremityacuteLumbar spondylosisacuteNocturnal leg crampsacute [facility] Work Phone: Evaluation note* Diagnosis Onset Date Resolution Status Degenerative arthritis of left foot acuteLeft foot painacuteChronic painacuteOther low back painacuteSacroiliitis, not elsewhere classifiedacuteHistory of lumbar fusionacutePain of right sacroiliac jointacuteAllergic rhinitisacuteChemotherapy-induced peripheral neuropathyacuteNasal polyp, posterioracuteTinnitus of both earsacute [facility] Work Phone: Evaluation note* Diagnosis Chronic sinusitis, unspecified location- Primary documented in [facility] encounter [facility]* Diagnosis Chronic frontal sinusitis- Primary documented in this encounter [facility]* Diagnosis Mitral valve insufficiency, unspecified etiology documented in this encounter [facility] Work Phone: Evaluation note* Diagnosis Mitral valve insufficiency, unspecified etiology- Primary Left ventricular systolic dysfunction Essential hypertension Unspecified essential hypertension LBBB (left bundle branch block) Other left bundle branch block BMI 28.0-28.9,adult Stage 3a chronic kidney disease (Multi) documented in this encounter [facility] Work Phone: Evaluation note* Diagnosis Dermatophytosis of nail- Primary Dystrophic nail Other specified disease of nail Pain in both feet documented in this encounter [facility]* Diagnosis Primary open angle glaucoma (POAG) of both eyes, mild stage (CMS/HCC)- Primary PCO (posterior capsular opacification), bilateral Unspecified after-cataract Keratoconjunctivitis sicca of both eyes not specified as Sjogren's documented in this encounter [facility]* Diagnosis Preop examination- Primary Preoperative examination, unspecified Presacral mass Abdominal or pelvic swelling, mass, or lump, other specified site Essential hypertension Unspecified essential hypertension 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 Gastroesophageal reflux disease, unspecified whether esophagitis present Bundle branch block, left Other left bundle branch block Chronic kidney disease, unspecified CKD stage Malignant neoplasm of upper-outer quadrant of left breast in female, estrogen receptor negative (HCC)- Primary [facility]* Diagnosis Dermatophytosis of nail- Primary Dystrophic nail Other specified disease of nail Pain around toenail, right foot Pain around toenail, left foot documented in this encounter [facility]* Diagnosis Osteoarthritis of midtarsal joint of left foot- Primary Capsulitis of left foot Pain in joint of left foot Pain and swelling of toe of left foot Difficulty walking Difficulty in walking documented in this encounter [facility]Evaluation note* Diagnosis Bilateral carpal tunnel syndrome- Primary Carpal tunnel syndrome Idiopathic progressive neuropathy documented in this encounter [facility] note* Diagnosis Mitral valve insufficiency, unspecified etiology- Primary Left ventricular systolic dysfunction Essential hypertension Unspecified essential hypertension LBBB (left bundle branch block) Other left bundle branch block BMI 28.0-28.9,adult Never smoked tobacco Stage 3a chronic kidney disease (Multi) documented in this encounter [facility] Work Phone: Evaluation note* Diagnosis Acute pain of right shoulder- Primary Rotator cuff arthropathy of right shoulder Subacromial impingement of right shoulder documented in this encounter [facility] HealthcareEvaluation note* Diagnosis Mitral valve insufficiency, unspecified etiology Left ventricular systolic dysfunction documented in this encounter [facility] Work Phone: History general Narrative - Reported* Type Description Date Medical History Breast Cancer Surgical HistoryhysterectomySurgical HistorycholecystectomySurgical Historylower backSurgical Historybilateral knee replacementSurgical Historyleft rotator cuff repairSurgical Historyleft mastectomySurgical Historybreast reconstruction Surgical Historybenign presacral mass ssjwrne44/2021Hospitalization HistorySee Above [employer] Other History general Narrative - Reported* Type Description Date Medical History Breast Cancer Surgical HistoryhysterectomySurgical HistorycholecystectomySurgical Historylower backSurgical Historybilateral knee replacementSurgical Historyleft rotator cuff repairSurgical Historyleft mastectomySurgical Historybreast reconstruction Surgical Historybenign presacral mass cnknuve56/[address]IF [address] Dr[address] Moreau04/01/2022Hospitalization HistorySee [employer] Other History general Narrative - Reported* Type Description Date Medical History Breast Cancer Medical HistoryAbdominal painMedical HistoryLUQ abdominal painMedical History ConstipationMedical HistoryLumbar spondylolysisMedical HistorySpondylolisthesis, lumbar regionMedical HistoryAge-related osteoporosis without current pathological fractureMedical HistoryArthropathy of left hipMedical History Chronic painMedical HistoryEssential hypertensionMedical HistoryDysphagiaMedical HistoryGERD (gastroesophageal reflux disease)Medical HistoryPrimary insomnia Medical HistoryPyelonephritis, acuteMedical HistoryBenign hypertension with chronic kidney disease, stage IIIMedical HistoryLeft bundle branch blockMedical HistorySyncope, unspecified syncope typeMedical HistoryHypercholesterolemia Medical HistoryMenopauseMedical HistoryChronic tension-type headache, intractableMedical HistoryMajor depression in remissionMedical HistoryNon- rheumatic mitral regurgitationMedical HistoryHigh risk medication useMedical HistoryVitamin D deficiencyMedical HistoryNonischemic cardiomyopathySurgical HistoryhysterectomySurgical HistorycholecystectomySurgical Historylower back Surgical Historybilateral knee replacementSurgical Historyleft rotator cuff repairSurgical Historyleft mastectomySurgical Historybreast reconstruction Surgical Historybenign presacral mass /2021S[address] Moreau04/01/2022Hospitalization HistorySee Above [employer] Other History general Narrative - Reported* Type Description Date Medical History Breast Cancer Medical HistoryAbdominal painMedical HistoryLUQ abdominal painMedical History ConstipationMedical HistoryLumbar spondylolysisMedical HistorySpondylolisthesis, lumbar regionMedical HistoryAge-related osteoporosis without current pathological fractureMedical HistoryArthropathy of left hipMedical History Chronic painMedical HistoryEssential hypertensionMedical HistoryDysphagiaMedical HistoryGERD (gastroesophageal reflux disease)Medical HistoryPrimary insomnia Medical HistoryPyelonephritis, acuteMedical HistoryBenign hypertension with chronic kidney disease, stage IIIMedical HistoryLeft bundle branch blockMedical HistorySyncope, unspecified syncope typeMedical HistoryHypercholesterolemia Medical HistoryMenopauseMedical HistoryChronic tension-type headache, intractableMedical HistoryMajor depression in remissionMedical HistoryNon- rheumatic mitral regurgitationMedical HistoryHigh risk medication useMedical HistoryVitamin D deficiencyMedical HistoryNonischemic cardiomyopathySurgical HistoryhysterectomySurgical HistorycholecystectomySurgical Historylower back Surgical Historybilateral knee replacementSurgical Historyleft rotator cuff repairSurgical Historyleft mastectomySurgical Historybreast reconstruction Surgical Historybenign presacral mass rwpfuyt87/[address] Moreau04/01/2022urgical HistoryColonoscopy01/2018Hospitalization HistorySee [employer] Other History general Narrative - Reported* Type Description Date Medical History Breast Cancer Medical HistoryAbdominal painMedical HistoryLUQ abdominal painMedical History ConstipationMedical HistoryLumbar spondylolysisMedical HistorySpondylolisthesis, lumbar regionMedical HistoryArthropathy of left hipMedical HistoryChronic pain Medical HistoryEssential hypertensionMedical HistoryDysphagiaMedical HistoryGERD (gastroesophageal reflux disease)Medical HistoryPrimary insomniaMedical History Pyelonephritis, acuteMedical HistoryBenign hypertension with chronic kidney disease, stage IIIMedical HistoryLeft bundle branch blockMedical HistorySyncope, unspecified syncope typeMedical HistoryHypercholesterolemiaMedical History MenopauseMedical HistoryChronic tension-type headache, intractableMedical HistoryMajor depression in remissionMedical HistoryNon-rheumatic mitral regurgitationMedical HistoryHigh risk medication useMedical HistoryVitamin D deficiencyMedical HistoryNonischemic cardiomyopathyMedical HistoryOsteopenia Surgical HistoryhysterectomySurgical HistorycholecystectomySurgical Historylower backSurgical Historybilateral knee replacementSurgical Historyleft rotator cuff repairSurgical Historyleft mastectomySurgical Historybreast reconstruction Surgical Historybenign presacral mass goildrt32/[address] Moreau04/01/2022urgical HistoryColonoscopy01/2018Hospitalization HistorySee [employer] Other History general Narrative - Reported* Type Description Date Medical History Breast Cancer Medical HistoryAbdominal painMedical HistoryLUQ abdominal painMedical History ConstipationMedical HistoryLumbar spondylolysisMedical HistorySpondylolisthesis, lumbar regionMedical HistoryArthropathy of left hipMedical HistoryChronic pain Medical HistoryEssential hypertensionMedical HistoryDysphagiaMedical HistoryGERD (gastroesophageal reflux disease)Medical HistoryPrimary insomniaMedical History Pyelonephritis, acuteMedical HistoryBenign hypertension with chronic kidney disease, stage IIIMedical HistoryLeft bundle branch blockMedical HistorySyncope, unspecified syncope typeMedical HistoryHypercholesterolemiaMedical History MenopauseMedical HistoryChronic tension-type headache, intractableMedical HistoryMajor depression in remissionMedical HistoryNon-rheumatic mitral regurgitationMedical HistoryHigh risk medication useMedical HistoryVitamin D deficiencyMedical HistoryNonischemic cardiomyopathyMedical HistoryOsteopenia Surgical Historyhysterectomy and unilateral oophorectomySurgical History cholecystectomySurgical Historylower backSurgical Historybilateral knee replacementSurgical Historyleft rotator cuff repairSurgical Historyleft mastectomySurgical Historybreast reconstructionSurgical Historybenign presacral mass /[address] Moreau04/01/2022urgical History Colonoscopy01/2018Hospitalization HistorySee Above [employer] Other History general Narrative - Reported* Type Description Date Medical History Breast Cancer Medical HistoryAbdominal painMedical HistoryLUQ abdominal painMedical History ConstipationMedical HistoryLumbar spondylolysisMedical HistorySpondylolisthesis, lumbar regionMedical HistoryArthropathy of left hipMedical HistoryChronic pain Medical HistoryEssential hypertensionMedical HistoryDysphagiaMedical HistoryGERD (gastroesophageal reflux disease)Medical HistoryPrimary insomniaMedical History Pyelonephritis, acuteMedical HistoryBenign hypertension with chronic kidney disease, stage IIIMedical HistoryLeft bundle branch blockMedical HistorySyncope, unspecified syncope typeMedical HistoryHypercholesterolemiaMedical History MenopauseMedical HistoryChronic tension-type headache, intractableMedical HistoryMajor depression in remissionMedical HistoryNon-rheumatic mitral regurgitationMedical HistoryHigh risk medication useMedical HistoryVitamin D deficiencyMedical HistoryNonischemic cardiomyopathyMedical HistoryOsteopenia Surgical Historyhysterectomy and unilateral oophorectomySurgical History cholecystectomySurgical Historylower backSurgical Historybilateral knee replacementSurgical Historyleft rotator cuff repairSurgical Historyleft mastectomySurgical Historybreast reconstructionSurgical Historybenign presacral mass siciygt15/[address] Moreau04/01/2022urgical History Colonoscopy01/2018Surgical FmpvuzwEHHO64/2023Hospitalization HistorySee Above [employer] Other Hospital Discharge instructionsAmbulatory Orders* Referral to Pain Management Location: None Selected [facility] Work Phone: Progress note Author Devin Moreau [facility] April 01, 2022 10:53amNote Date/TimeNov2021 10:53[place] [address] Neurosurgery Progress Note Signed Patient: Renuka Owen MR#: [id number] : 1950 Acct:[id number] Age/Sex: 71 / F Adm Date: 2 Loc: 4 Room: [address] [place] [address] Type: REG [facility] Attending Dr: Devin Moreau MD Copies to: [...] Status: Acute Documented By: Devin Moreau MD 04/01/221051 Signed By: <Electronically signed by MD Devin Moreau> 04/01/221052 [facility] Work Phone: Reason for referral (narrative)* Diagnostic Procedure Only (Routine) - Pending ReviewSpecialtyDiagnoses / ProceduresReferred By ContactReferred To ContactBR IMAGING Diagnoses Malignant neoplasm of upper-outer quadrant of left breast in female, estrogen receptor negative (HCC) Procedures [facility] RT DIAGNOSTIC MAMMOGRAPHY COMPUTER-AIDED DETCJ UNI Jacob Mercado MD [address] [place] [address] [place] [address] [facility] [address] [place] [address] Referral IDStatusReasonStart DateExpiration DateVisits RequestedVisits [id number] Review Auto-Generated Referral / [facility] for referral (narrative)* Consultation (Routine) - AuthorizedSpecialtyDiagnoses / ProceduresReferred By ContactReferred To ContactCardiology Diagnoses Mitral valve insufficiency, unspecified etiology Essential hypertension Procedures Follow Up In Cardiology Bryce Hendrickson MD [address], Rob [address] [place] [address] Bryce Hendrickson MD [address] [place] [address] [facility], Rob [address] [place] [address] Referral IDStatusReasonStart DateExpiration DateVisits RequestedVisits [id number]/31/202310/30/202411 T [facility] Work Phone: [facility])* Consultation (Routine) - AuthorizedSpecialtyDiagnoses / ProceduresReferred By Contact Referred To ContactCardiology Diagnoses Mitral valve insufficiency, unspecified etiology Procedures Follow Up In Cardiology Bryce Hendrickson MD [address], [address] [place] [address] Bryce Hendrickson MD [address], Rob [address] [place], [place] [id number] Referral IDStatusReasonStart DateExpiration DateVisits RequestedVisits [id number]/16/202311/ [facility] Work Phone: Reason for referral (narrative)* Diagnostic Procedure Only (Routine) - Pending ReviewSpecialtyDiagnoses / ProceduresReferred By ContactReferred To ContactBR IMAGING Diagnoses Malignant neoplasm of upper-outer quadrant of left breast in female, estrogen receptor negative (HCC) (HCC) Procedures [facility] RIGHT DIAGNOSTIC MAMMOGRAPHY COMPUTER-AIDED DETCJ UNI Jacob Mercado MD [address] [place] [address] [place] [address] [facility] [address] [place] [address] Referral IDStatusReasonStart DateExpiration DateVisits RequestedVisits [id number] Review Auto-Generated Referral / [facility] for referral (narrative)No reason for referral information availableLima Memorial Hospital Work Phone: Reason for visit NarrativePain management referral updateCincinnati [employer] Other Reason for visit Narrative* Consultation (Routine) - ClosedSpecialtyDiagnoses / ProceduresReferred By ContactReferred To Contact Neurology Diagnoses Headache, unspecified Spondylosis without myelopathy or radiculopathy, cervical region Procedures CT [facility], Counts Include [address] [facility] Physician [address] [place] [address] Phone: tel: fax: Bran Linda MD [address] [facility] [address] [place] [address] Phone: tel: fax: Referral IDStatusReasonStdesdemona DateExpiration DateVisits RequestedVisits [id number]/12/20259/ ROHITH Angela for visit Narrative* CV Imaging (Routine) - Authorized SpecialtyDiagnoses / ProceduresReferred By ContactReferred To Contact Cardiology Diagnoses Mitral valve insufficiency, unspecified etiology Left ventricular systolic dysfunction Procedures Transthoracic Echo Limited CT ECHO TRANSTHORC R-T 2D W/WO M-MODE REC F-UP/LMTD CT DOPPLER ECHO COLOR FLOW VELOCITY MAPPING CT DOPPLER ECHO PULSE WAVE W/SPECTRAL F-UP/LMTD STD Bryce Hendrickson MD [address] [facility] 2, [address] [address] Phone: tel: fax: Referral IDStatusReasonStdesdemona DateExpiration DateVisits RequestedVisits [id number] Perform Procedure [facility] Work Phone: Summary Purpose Family History No Family History Records Found Relationship Condition Age at Onset Recorded Date/T demetria Not Specified Malignant neoplasm of breast Unknown fatherMalignant neoplasm of testicleUnknownbrotherLeukemiaUnknownUnknown Family Member Name Dates Details No pertinent [...] Not Specified Malignant neoplasm of breast Unknown fatherMalignant neoplasm of testicleUnknownbrotherLeukemiaUnknownfatherDeceased Unknown Relationship Condition Age at Onset Recorded Date/T demetria mother Malignant neoplasm of breast Unknown fatherMalignant neoplasm of testicleUnknownbrotherLeukemiaUnknownfatherDeceased Unknown Relationship Condition Age at Onset Recorded Date/T demetria mother Malignant neoplasm of breast Unknown fatherMalignant neoplasm of testicleUnknownDeceasedUnknownbrotherLeukemiaUnknown Advance Directives No Advanced Directives Records Found Advance Directive Response Recorded Date/ Time Advance Directives No October 03 10:51am Advance Directive Response Recorded Date/ Time Advance Directives No October 03 9:51am TypeDate RecordedPatient RepresentativeExplanationAdvance Directive(s)06/07/2020 2:34 PMTypeDate RecordedPatient RepresentativeExplanationAdvance Directive(s) 06/07/2020 2:34 PM Advance Directive Response Recorded Date/ Time Advance Directives Yes June 10:43am Advance Directive Response Recorded Date/ Time Advance Directives Yes June 11:43am Advance Directive Response Recorded Date/ Time Advance Directives Yes September 01, 2024 9:54am Hospital Course Note HNO ID: [id number] Author: Keith winn ([facility]) [facility] Service: Colorectal Author Type: Nurse Practitioner Type: Discharge Summary Filed: 06/20/2020 1:22 PM Note Text: Attestation signed by Saman Lorenzo at 06/21/2020 9:45 AM Attending Note: Discharge summary reviewed and agree. Saman Lorenzo MD DISCHARGE SUMMARY PATIENT NAME: Renuka Owen ADMISSION DATE: 06/19/2020 DISCHARGE DATE: 06/20/2020 ATTENDING PHYSICIAN: Saman Lorenzo Code Status: Not on file Highest Readmission [...] (more content not included)... Note HNO ID: [id number] Author: Yissel Reddy) Slivurszula Service: Anesthesiology Author Type: Nurse Print Support Specialist Type: Anesthesia Procedure Notes Filed: 06/19/2020 2:41 PM Note Text: ANESTHESIOLOGY PROCEDURE NOTE Airway General Information Procedure Start Time/Medication Administration: 06/19/2020 2:25 PM Patient location during procedure: OR Timeout Performed Pre-procedure: timeout performed Patient identity confirmed: arm band and patient Staffing Anesthesiologist: Ricardo Arvizu DYER ASSISTANT: Robyn Reddy) Slivurszula Performed by: DYER ASSISTANT Indications and Patient Condition Preoxygenated: yes Patient [...] (more content not included)... Note HNO ID: [id number] Author: Karuna He (Fel) Service: Colorectal Author Type: Fellow Type: Brief Op Note Filed: 06/19/2020 4:17 PM Note Text: BRIEF OPERATIVE NOTE - COLORECTAL SURGERY Log ID: [id number] Surgery/Procedure Date: 06/19/2020 Incision/Procedure Start Time: 2:46 PM Incision Close/Procedure End Time: 4:00 PM Surgeon(s) and Rubber Cutter And Shape Carver(s): Surgeon(s) and Role: * Saman Lorenzo - Primary * Kota Ren - Resident - Assisting * Triny He (Fel) - Fellow No Additional Staff [...] not included)... Procedure Findings Note HNO ID: [id number] Author: Yissel valencia (Bernadette) Slivinskiy Service: Anesthesiology Author Type: Nurse Print Support Specialist Type: Anesthesia Procedure Notes Filed: 06/19/2020 2:41 PM Note Text: ANESTHESIOLOGY PROCEDURE NOTE Airway General Information Procedure Start Time/Medication Administration: 06/19/2020 2:25 PM Patient location during procedure: OR Timeout Performed Pre-procedure: timeout performed Patient identity confirmed: arm band and patient Staffing Anesthesiologist: Ricardo Arvizu DYER ASSISTANT: Robyn Reddy) Slivboby Performed by: BERNADETTE Indications and Patient Condition Preoxygenated: yes Patient [...] (more content not included)... Note HNO ID: [id number] Author: Karuna He (Fel) Service: Colorectal Author Type: Fellow Type: Brief Op Note Filed: 06/19/2020 4:17 PM Note Text: BRIEF OPERATIVE NOTE - COLORECTAL SURGERY Log ID: [id number] Surgery/Procedure Date: 06/19/2020 Incision/Procedure Start Time: 2:46 PM Incision Close/Procedure End Time: 4:00 PM Surgeon(s) and Rubber Cutter And Shape Carver(s): Surgeon(s) and Role: * Saman Lorenzo - Primary * Kota Ren - Resident - Assisting * Triny He (Fel) - Fellow No Additional Staff [...] Complaint Stenosis Stenosis Chief Complaint Stenosis Stenosis StenosisReason for VisitLumbar stenosis without neurogenic claudication Chief Complaint M43.16 spondylolisthesis Chief Complaint spondylolisthesis spondylolisthesis spondylolisthesisReason for VisitLumbar stenosis without neurogenic claudication Chief Complaint spondylolisthesis spondylolisthesis spondylolisthesis m43.16Reason for VisitLumbar stenosis without neurogenic claudication Chief Complaint m81.0 m43.16 Chief Complaint m81.0 m43.16 m81.0 m43.16 Chief Complaint m81.0 m43.16 m81.0 m43.16 S/P Hysterectomy Lumbar Stenosis Lumbar Stenosis Chief Complaint m81.0 m43.16 m81.0 m43.16 S/P Hysterectomy Lumbar Stenosis Lumbar Stenosis lumbar stenosis lumbar stenosis s/p l3-4 fusion L4-5 revisionReason for VisitGERD (gastroesophageal reflux disease) Impaired mobility and activities of daily living Left bundle branch block Lumbar stenosis without neurogenic claudication Neuropathy Osteoporosis Postoperative pain Impaired mobility and activities of daily living Left bundle branch block Lumbar stenosis without neurogenic claudication Neuropathy Postoperative pain Chief Complaint Lumbar Stenosis Lumbar Stenosis lumbar stenosis lumbar stenosis s/p l3-4 fusion L4-5 revision 2 Week Po Plif W/X-Ray [facility] Discharge 1 Mo Po W/X-Ray m43.16 2 MO F/U PLIF w/xrayReason for VisitGERD (gastroesophageal reflux disease) Impaired mobility and activities of daily living Left bundle branch block Lumbar stenosis without neurogenic claudication Neuropathy Osteoporosis Postoperative pain Impaired mobility and activities of daily living Left bundle branch block Lumbar stenosis without neurogenic claudication Neuropathy Postoperative pain Lumbar adjacent segment disease with spondylolisthesis Spondylolisthesis, lumbar region Status post lumbar spinal fusion Chief Complaint 2 Week Po Plif W/X-R ay [facility] Discharge 1 Mo Po W/X-Ray m43.16 2 MO F/U PLIF w/xray Amb Documentation M43.16 3 month PO PLIF w xrayReason for VisitLumbar adjacent segment disease with spondylolisthesis Spondylolisthesis, lumbar region Status post lumbar spinal fusion Inflammation of right sacroiliac joint Lumbar adjacent segment disease with spondylolisthesis Spondylolisthesis, lumbar region Status post lumbar spinal fusion Chief Complaint 1 Mo Po W/X-Ray m43.16 2 MO F/U PLIF w/xray Amb Documentation M43.16 3 month PO PLIF w xray Amb Documentation EST PT CONSULT DR LIZZETH COSTARejing for VisitLumbar adjacent segment disease with spondylolisthesis Spondylolisthesis, lumbar [...] xray Amb Documentation EST PT CONSULT DR LIZZETH COSTA LUMBAR PAIN LUMBAR PAINReason for VisitLumbar adjacent segment disease with spondylolisthesis Spondylolisthesis, lumbar region Status post lumbar spinal fusion Inflammation of right sacroiliac joint Lumbar adjacent segment disease with spondylolisthesis Spondylolisthesis, lumbar region Status post lumbar spinal fusion Chronic pain Other low back pain Sacroiliitis, not elsewhere classified Chief Complaint Amb Documentation M43.16 3 month PO PLIF w xray Amb Documentation EST PT CONSULT DR LIZZETH COSTA LUMBAR PAIN LUMBAR PAIN leg cramps F/U AFTER RT SI JOINT INJReason for VisitInflammation of right sacroiliac joint Lumbar adjacent segment disease with spondylolisthesis Spondylolisthesis, lumbar region Status post lumbar spinal fusion Chronic pain Other low back pain Sacroiliitis, not elsewhere classified Chemotherapy-induced peripheral neuropathy Chronic venous insufficiency of lower extremity Lumbar spondylosis Nocturnal leg cramps Chronic pain Other low back pain Sacroiliitis, not elsewhere classified Chief Complaint Amb Documentation EST PT CONSULT DR LIZZETH COSTA LUMBAR PAIN LUMBAR PAIN leg cramps F/U AFTER RT SI JOINT INJ m51.36 m43.16 6 month po PLIF w/xrayReason for VisitChronic pain Other low back pain Sacroiliitis, not [...] po PLIF w/xray sinus infection - 2 weeksReason for VisitChronic pain Other low back pain Sacroiliitis, not [...] PLIF w/xray sinus infection - 2 weeks RECHECKReason for VisitChemotherapy-induced peripheral neuropathy Chronic venous insufficiency of lower [...] infection - 2 weeks RECHECK lt foot issuesReason for VisitChemotherapy-induced peripheral neuropathy Chronic venous insufficiency of lower [...] RECHECK lt foot issues Back Pain Back PainReason for VisitChronic pain Other low back pain Sacroiliitis, not elsewhere classified Lumbar spondylosis Status post lumbar spinal fusion Sinusitis Chronic pain Other low back pain Sacroiliitis, not elsewhere classified Degenerative arthritis of left foot Left foot pain Chief Complaint m51.36 m43.16 6 month po PLIF w/xray sinus infection - 2 weeks RECHECK lt foot issues Back Pain Back Pain F/U AFTER RT SACROILIAC JOINT INJReason for VisitLumbar spondylosis Status post lumbar spinal fusion Sinusitis Chronic pain Other low back pain Sacroiliitis, not elsewhere classified Degenerative arthritis of left foot Left foot pain Chronic pain Other low back pain Sacroiliitis, not elsewhere classified Chief Complaint RECHECK lt foot issues Back Pain Back Pain F/U AFTER RT SACROILIAC JOINT INJ M47.816 M51.36 M43.16 f/u plif w/xrayReason for VisitChronic pain Other low back pain Sacroiliitis, not elsewhere classified Degenerative arthritis of left foot Left foot pain Chronic pain Other low back pain Sacroiliitis, not elsewhere classified History of lumbar fusion Pain of right sacroiliac joint Chief Complaint lt foot issues Back Pain Back Pain F/U AFTER RT SACROILIAC JOINT INJ M47.816 M51.36 M43.16 f/u plif w/xray vision, balance, and tapping in earsReason for VisitDegenerative arthritis of left foot Left foot pain [...] and tapping in ears CC Adult Risk StratificationReason for VisitDegenerative arthritis of left foot Left foot pain Chronic pain Other low back pain Sacroiliitis, not elsewhere classified History of lumbar fusion Pain of right sacroiliac joint Allergic rhinitis Chemotherapy-induced peripheral neuropathy Nasal polyp, posterior Tinnitus of both ears Chief Complaint Admit Date vision, balance, and tapping in ears Jan 10:47am CC Adult Risk Stratification January 2:07pm headaches, neck, back of neck pain Decem 2023 2:12pm Syncope April 07, 2024 4 :45pm Syncope April 08, 2024 1 :15pm Amb Documentation April 10, 2024 9 :36am CC Adult Risk Stratification April [id number] 4:16pm Inpatient f/u [facility] April 12, 2024 2:39pm Weakness/Walking May 12, 2024 1 :44pm Reason for Visit Admit Date Chemotherapy-induced peripheral neuropat hy March 01, 2024 10:47am Allergic rhinitis March 01, 2024 1 0:47am Nasal polyp, posterior March 01 10:47am Tinnitus of both ears March 01, 2024 10:47am Cervical spondylosis with radiculopathy April 04, 2024 2:12pm Chemotherapy-induced peripheral neuropat hy April 04, 2024 2:12pm Occipital headache April 04, 2024 2 :12pm Unsteadiness on feet April 04, 2024 2:12pm Impaired mobility and activities of luisa y living April 04, 2024 2:12pm Sinusitis April 04, 2024 2 :12pm Generalized weakness April 07, 2024 4:45pm Acute kidney injury April 07, 2024 4 :45pm Diarrhea April 07, 2024 4 :45pm Fall April 07, 2024 4 :45pm Anemia April 12, 2024 2:39pm Cervical spondylosis with radiculopathy April 12, 2024 2:39pm Chronic HFrEF (heart failure with reduced ejection fraction) April 12, 2024 2:39pm Chronic venous insufficiency of lower ex tremity April 12, 2024 2:39pm Hypertension April 12, 2024 2:39pm Lumbar stenosis without neurogenic my ication April 12, 2024 2:39pm Mitral regurgitation April 12, 2024 2:39pm Occipital headache April 12, 2024 2:39pm Orthostatic hypotension April 12, 2 024 2:39pm Anemia May 12, 2024 1 :44pm Cervical spondylosis with radiculopathy May 12, 2024 1:44pm Chronic HFrEF (heart failure with reduced ejection fraction) May 12, 2024 1:44pm Chronic venous insufficiency of lower ex tremity May 12, 2024 1:44pm Hypertension May 12, 2024 1 :44pm Lumbar stenosis without neurogenic my ication May 12, 2024 1:44pm Mitral regurgitation May 12, 2024 1:44pm Orthostatic hypotension May 12 1:44pm Chief Complaint Admit Date headaches, neck, back of neck pain Decem 2023 2:12pm Syncope April 07, 2024 4 :45pm Syncope April 08, 2024 1 :15pm Amb Documentation April 10, 2024 9 :36am CC Adult Risk Stratification April [id number] 4:16pm Inpatient f/u [facility] April 12, 2024 2:39pm Weakness/Walking May 12, 2024 1 :44pm Fall June 01, 2024 1 :43pm Reason for Visit Admit Date Cervical spondylosis with radiculopathy April 04, 2024 2:12pm Chemotherapy-induced peripheral neuropat hy April 04, 2024 2:12pm Occipital headache April 04, 2024 2 :12pm Unsteadiness on feet April 04, 2024 2:12pm Impaired mobility and activities of luisa y living April 04, 2024 2:12pm Sinusitis April 04, 2024 2 :12pm Generalized weakness April 07, 2024 4:45pm Acute kidney injury April 07, 2024 4 :45pm Diarrhea April 07, 2024 4 :45pm Fall April 07, 2024 4 :45pm Anemia April 12, 2024 2:39pm Cervical spondylosis with radiculopathy April 12, 2024 2:39pm Chronic HFrEF (heart failure with reduced ejection fraction) April 12, 2024 2:39pm Chronic venous insufficiency of lower ex tremity April 12, 2024 2:39pm Hypertension April 12, 2024 2:39pm Lumbar stenosis without neurogenic my ication April 12, 2024 2:39pm Mitral regurgitation April 12, 2024 2:39pm Occipital headache April 12, 2024 2:39pm Orthostatic hypotension April 12, 2 024 2:39pm Anemia May 12, 2024 1 :44pm Cervical spondylosis with radiculopathy May 12, 2024 1:44pm Chronic HFrEF (heart failure with reduced ejection fraction) May 12, 2024 1:44pm Chronic kidney disease May 12 1:44pm Chronic venous insufficiency of lower ex tremity May 12, 2024 1:44pm Hypertension May 12, 2024 1 :44pm Lumbar stenosis without neurogenic my ication May 12, 2024 1:44pm Unsteady gait when walking May 12, 2024 1:44pm Chief Complaint Admit Date headaches, neck, back of neck pain Decem 2023 2:12pm Syncope April 07, 2024 4 :45pm Syncope April 08, 2024 1 :15pm Amb Documentation April 10, 2024 9 :36am CC Adult Risk Stratification April [id number] 4:16pm Inpatient f/u [facility] April 12, 2024 2:39pm Weakness/Walking May 12, 2024 1 :44pm Fall June 01, 2024 1 :43pm Fall June 03, 2024 8 :37am Fall June 05, 2024 9 :30am Reason for Visit Admit Date Cervical spondylosis with radiculopathy April 04, 2024 2:12pm Chemotherapy-induced peripheral neuropat hy April 04, 2024 2:12pm Occipital headache April 04, 2024 2 :12pm Unsteadiness on feet April 04, 2024 2:12pm Impaired mobility and activities of luisa y living April 04, 2024 2:12pm Sinusitis April 04, 2024 2 :12pm Generalized weakness April 07, 2024 4:45pm Acute kidney injury April 07, 2024 4 :45pm Diarrhea April 07, 2024 4 :45pm Fall April 07, 2024 4 :45pm Anemia April 12, 2024 2:39pm Cervical spondylosis with radiculopathy April 12, 2024 2:39pm Chronic HFrEF (heart failure with reduced ejection fraction) April 12, 2024 2:39pm Chronic venous insufficiency of lower ex tremity April 12, 2024 2:39pm Hypertension April 12, 2024 2:39pm Lumbar stenosis without neurogenic my ication April 12, 2024 2:39pm Mitral regurgitation April 12, 2024 2:39pm Occipital headache April 12, 2024 2:39pm Orthostatic hypotension April 12, 2 024 2:39pm Anemia May 12, 2024 1 :44pm Cervical spondylosis with radiculopathy May 12, 2024 1:44pm Chronic HFrEF (heart failure with reduced ejection fraction) May 12, 2024 1:44pm Chronic kidney disease May 12 1:44pm Chronic venous insufficiency of lower ex tremity May 12, 2024 1:44pm Hypertension May 12, 2024 1 :44pm Lumbar stenosis without neurogenic my ication May 12, 2024 1:44pm Unsteady gait when walking May 12, 2024 1:44pm Ymcfk-lz-nnzswrn kidney injury May 052024 1:43pm Anemia June 01, 2024 1 :43pm Chemotherapy-induced peripheral neuropat hy June 01, 2024 1:43pm Chronic HFrEF (heart failure with reduced ejection fraction) June 01, 2024 1:43pm Chronic kidney disease June 01 1:43pm Contusion June 01, 2024 1 :43pm Generalized weakness June 01, 2024 1:43pm Hypertension June 01, 2024 1 :43pm Hypokalemia June 01, 2024 1 :43pm Impaired mobility and activities of luisa y living June 01, 2024 1:43pm Unsteady gait when walking June 01, 2024 1:43pm Chief Complaint Admit Date headaches, neck, back of neck pain Decem 2023 2:12pm Syncope April 07, 2024 4 :45pm Syncope April 08, 2024 1 :15pm Amb Documentation April 10, 2024 9 :36am CC Adult Risk Stratification April 112023 4:16pm Inpatient f/u [facility] April 12, 2024 2:39pm Weakness/Walking May 12, 2024 1 :44pm Fall June 01, 2024 1 :43pm [facility]dc Visit June 01, 2024 1 1:59pm Fall June 03, 2024 8 :37am Fall June 05, 2024 9 :30am Amb Documentation June 27, 2024 8:38am Z96.652 - Presence of left artificial kn ee joint June 29, 2024 8:09am NEW LTKA PAIN AFTER FALL June 29, 2024 9:30am Reason for Visit Admit Date Cervical spondylosis with radiculopathy April 04, 2024 2:12pm Chemotherapy-induced peripheral neuropat hy April 04, 2024 2:12pm Occipital headache April 04, 2024 2 :12pm Unsteadiness on feet April 04, 2024 2:12pm Impaired mobility and activities of luisa y living April 04, 2024 2:12pm Sinusitis April 04, 2024 2 :12pm Generalized weakness April 07, 2024 4:45pm Acute kidney injury April 07, 2024 4 :45pm Diarrhea April 07, 2024 4 :45pm Fall April 07, 2024 4 :45pm Anemia April 12, 2024 2:39pm Cervical spondylosis with radiculopathy April 12, 2024 2:39pm Chronic HFrEF (heart failure with reduced ejection fraction) April 12, 2024 2:39pm Chronic venous insufficiency of lower ex tremity April 12, 2024 2:39pm Hypertension April 12, 2024 2:39pm Lumbar stenosis without neurogenic my ication April 12, 2024 2:39pm Mitral regurgitation April 12, 2024 2:39pm Occipital headache April 12, 2024 2:39pm Orthostatic hypotension April 12, 024 2:39pm Anemia May 12, 2024 1 :44pm Cervical spondylosis with radiculopathy May 12, 2024 1:44pm Chronic HFrEF (heart failure with reduced ejection fraction) May 12, 2024 1:44pm Chronic kidney disease May 12 1:44pm Chronic venous insufficiency of lower ex tremity May 12, 2024 1:44pm Hypertension May 12, 2024 1 :44pm Lumbar stenosis without neurogenic my ication May 12, 2024 1:44pm Unsteady gait when walking May 12, 2024 1:44pm Qpqcn-lm-rjifjyc kidney injury May 052024 1:43pm Anemia June 01, 2024 1 :43pm Chemotherapy-induced peripheral neuropat hy June 01, 2024 1:43pm Chronic HFrEF (heart failure with reduced ejection fraction) June 01, 2024 1:43pm Chronic kidney disease June 01 1:43pm Contusion June 01, 2024 1 :43pm Generalized weakness June 01, 2024 1:43pm Hypertension June 01, 2024 1 :43pm Impaired mobility and activities of luisa y living June 01, 2024 1:43pm Unsteady gait when walking June 01, 2024 1:43pm Hypokalemia June 01, 2024 1 :43pm History of total left knee replacement F ebruary 2024 9:30am Reason for Visit Admit Date Cervical spondylosis with radiculopathy April 04, 2024 2:12pm Chemotherapy-induced peripheral neuropat hy April 04, 2024 2:12pm Occipital headache April 04, 2024 2 :12pm Unsteadiness on feet April 04, 2024 2:12pm Impaired mobility and activities of luisa y living April 04, 2024 2:12pm Sinusitis April 04, 2024 2 :12pm Generalized weakness April 07, 2024 4:45pm Acute kidney injury April 07, 2024 4 :45pm Diarrhea April 07, 2024 4 :45pm Fall April 07, 2024 4 :45pm Anemia April 12, 2024 2:39pm Cervical spondylosis with radiculopathy April 12, 2024 2:39pm Chronic HFrEF (heart failure with reduced ejection fraction) April 12, 2024 2:39pm Chronic venous insufficiency of lower ex tremity April 12, 2024 2:39pm Hypertension April 12, 2024 2:39pm Lumbar stenosis without neurogenic my ication April 12, 2024 2:39pm Mitral regurgitation April 12, 2024 2:39pm Occipital headache April 12, 2024 2:39pm Orthostatic hypotension April 12, 024 2:39pm Anemia May 12, 2024 1 :44pm Cervical spondylosis with radiculopathy May 12, 2024 1:44pm Chronic HFrEF (heart failure with reduced ejection fraction) May 12, 2024 1:44pm Chronic kidney disease May 12 1:44pm Chronic venous insufficiency of lower ex tremity May 12, 2024 1:44pm Hypertension May 12, 2024 1 :44pm Lumbar stenosis without neurogenic my ication May 12, 2024 1:44pm Unsteady gait when walking May 12, 2024 1:44pm Ghrpz-jb-weldbmv kidney injury May 052024 1:43pm Anemia June 01, 2024 1 :43pm Chemotherapy-induced peripheral neuropat hy June 01, 2024 1:43pm Chronic HFrEF (heart failure with reduced ejection fraction) June 01, 2024 1:43pm Chronic kidney disease June 01 1:43pm Contusion June 01, 2024 1 :43pm Generalized weakness June 01, 2024 1:43pm Hypertension June 01, 2024 1 :43pm Impaired mobility and activities of luisa y living June 01, 2024 1:43pm Unsteady gait when walking June 01, 2024 1:43pm Hypokalemia June 01, 2024 1 :43pm History of total left knee replacement F ebruary 2024 9:30am Pes anserinus bursitis of left knee Febr uary 2024 9:30am Chief Complaint Admit Date headaches, neck, back of neck pain Decem 2023 2:12pm Syncope April 07, 2024 4 :45pm Syncope April 08, 2024 1 :15pm Amb Documentation April 10, 2024 9 :36am CC Adult Risk Stratification April 112023 4:16pm Inpatient f/u [facility] April 12, 2024 2:39pm Weakness/Walking May 12, 2024 1 :44pm Fall June 01, 2024 1 :43pm Fdc Visit June 01, 2024 1 1:59pm Fall June 03, 2024 8 :37am Fall June 05, 2024 9 :30am Amb Documentation June 27, 2024 8:38am Z96.652 - Presence of left artificial kn ee joint June 29, 2024 8:09am NEW LTKA PAIN AFTER FALL June 29, 2024 9:30am [facility] f/u July 03, 2024 1:18 pm Reason for Visit Admit Date Cervical spondylosis with radiculopathy April 04, 2024 2:12pm Chemotherapy-induced peripheral neuropat hy April 04, 2024 2:12pm Occipital headache April 04, 2024 2 :12pm Unsteadiness on feet April 04, 2024 2:12pm Impaired mobility and activities of luisa y living April 04, 2024 2:12pm Sinusitis April 04, 2024 2 :12pm Generalized weakness April 07, 2024 4:45pm Acute kidney injury April 07, 2024 4 :45pm Diarrhea April 07, 2024 4 :45pm Fall April 07, 2024 4 :45pm Anemia April 12, 2024 2:39pm Cervical spondylosis with radiculopathy April 12, 2024 2:39pm Chronic HFrEF (heart failure with reduced ejection fraction) April 12, 2024 2:39pm Chronic venous insufficiency of lower ex tremity April 12, 2024 2:39pm Hypertension April 12, 2024 2:39pm Lumbar stenosis without neurogenic my ication April 12, 2024 2:39pm Mitral regurgitation April 12, 2024 2:39pm Occipital headache April 12, 2024 2:39pm Orthostatic hypotension April 12, 2 024 2:39pm Anemia May 12, 2024 1 :44pm Cervical spondylosis with radiculopathy May 12, 2024 1:44pm Chronic HFrEF (heart failure with reduced ejection fraction) May 12, 2024 1:44pm Chronic kidney disease May 12 1:44pm Chronic venous insufficiency of lower ex tremity May 12, 2024 1:44pm Hypertension May 12, 2024 1 :44pm Lumbar stenosis without neurogenic my ication May 12, 2024 1:44pm Unsteady gait when walking May 12, 2024 1:44pm Aprdu-du-lfmynai kidney injury May 052024 1:43pm Anemia June 01, 2024 1 :43pm Chemotherapy-induced peripheral neuropat hy June 01, 2024 1:43pm Chronic HFrEF (heart failure with reduced ejection fraction) June 01, 2024 1:43pm Chronic kidney disease June 01 1:43pm Contusion June 01, 2024 1 :43pm Generalized weakness June 01, 2024 1:43pm Hypertension June 01, 2024 1 :43pm Impaired mobility and activities of luisa y living June 01, 2024 1:43pm Unsteady gait when walking June 01, 2024 1:43pm Hypokalemia June 01, 2024 1 :43pm History of total left knee replacement F ebruary 2024 9:30am Pes anserinus bursitis of left knee Febr uary 2024 9:30am Anemia July 03, 2024 1:18 pm Cervical spondylosis with radiculopathy July 03, 2024 1:18pm Chronic HFrEF (heart failure with reduced ejection fraction) July 03, 2024 1:18pm Chronic kidney disease July 03, 2024 1 :18pm Chronic venous insufficiency of lower ex tremity July 03, 2024 1:18pm Hypertension July 03, 2024 1:18 pm Lumbar stenosis without neurogenic my ication July 03, 2024 1:18pm Chief Complaint Admit Date Weakness/Walking May 12, 2024 1 :44pm Fall June 01, 2024 1 :43pm Fdc Visit June 01, 2024 1 1:59pm Fall June 03, 2024 8 :37am Fall June 05, 2024 9 :30am Fdc Visit June 22, 2024 11:59pm Amb Documentation June 27, 2024 8:38am Z96.652 - Presence of left artificial kn ee joint June 29, 2024 8:09am NEW LTKA PAIN AFTER FALL June 29, 2024 9:30am [facility] f/u July 03, 2024 1:18 pm Reason for Visit Admit Date Anemia May 12, 2024 1 :44pm Cervical spondylosis with radiculopathy May 12, 2024 1:44pm Chronic HFrEF (heart failure with reduced ejection fraction) May 12, 2024 1:44pm Chronic kidney disease May 12 1:44pm Chronic venous insufficiency of lower ex tremity May 12, 2024 1:44pm Hypertension May 12, 2024 1 :44pm Lumbar stenosis without neurogenic my ication May 12, 2024 1:44pm Unsteady gait when walking May 12, 2024 1:44pm Anemia June 01, 2024 1 :43pm Chemotherapy-induced peripheral neuropat hy June 01, 2024 1:43pm Chronic HFrEF (heart failure with reduced ejection fraction) June 01, 2024 1:43pm Chronic kidney disease June 01 1:43pm Contusion June 01, 2024 1 :43pm Hypertension June 01, 2024 1 :43pm Impaired mobility and activities of luisa y living June 01, 2024 1:43pm Unsteady gait when walking June 01, 2024 1:43pm Attbm-gf-plvrlry kidney injury May 052024 1:43pm Hypokalemia June 01, 2024 1 :43pm Generalized weakness June 01, 2024 1:43pm History of total left knee replacement F ebruary 2024 9:30am Pes anserinus bursitis of left knee Febr uary 2024 9:30am Anemia July 03, 2024 1:18 pm Cervical [...] knee pain July 03, 2024 1:18 pm Chief Complaint Admit Date Weakness/Walking May 12, 2024 1 :44pm Fall June 01, 2024 1 :43pm Fdc Visit June 01, 2024 1 1:59pm Fall June 03, 2024 8 :37am Fall June 05, 2024 9 :30am Fdc Visit June 22, 2024 11:59pm Amb Documentation June 27, 2024 8:38am Z96.652 - Presence of left artificial kn ee joint June 29, 2024 8:09am NEW LTKA PAIN AFTER FALL June 29, 2024 9:30am [facility] f/u July 03, 2024 1:18 pm 3 WEEKS July 24, 2024 11: 07am Reason for Visit Admit Date Anemia May 12, 2024 1 :44pm Cervical spondylosis with radiculopathy May 12, 2024 1:44pm Chronic HFrEF (heart failure with reduced ejection fraction) May 12, 2024 1:44pm Chronic kidney disease May 12 1:44pm Chronic venous insufficiency of lower ex tremity May 12, 2024 1:44pm Hypertension May 12, 2024 1 :44pm Lumbar stenosis without neurogenic my ication May 12, 2024 1:44pm Unsteady gait when walking May 12, 2024 1:44pm Anemia June 01, 2024 1 :43pm Chemotherapy-induced peripheral neuropat hy June 01, 2024 1:43pm Chronic HFrEF (heart failure with reduced ejection fraction) June 01, 2024 1:43pm Chronic kidney disease June 01 1:43pm Contusion June 01, 2024 1 :43pm Hypertension June 01, 2024 1 :43pm Impaired mobility and activities of luisa y living June 01, 2024 1:43pm Unsteady gait when walking June 01, 2024 1:43pm Fznoo-kh-redfrnx kidney injury May 052024 1:43pm Hypokalemia June 01, 2024 1 :43pm Generalized weakness June 01, 2024 1:43pm History of total left knee replacement F ebruary 2024 9:30am Pes anserinus bursitis of left knee Febr uary 2024 9:30am Anemia July 03, 2024 1:18 pm Cervical [...] History of total left knee replacement M arch 2024 11:07am Pes anserinus bursitis of left knee Jarrod h 2024 11:07am Chief Complaint Admit Date Fdc Visit June 22, 2024 11:59pm Amb Documentation June 27, 2024 8:38am Z96.652 - Presence of left artificial kn ee joint June 29, 2024 8:09am NEW LTKA PAIN AFTER FALL June 29, 2024 9:30am [facility] f/u July 03, 2024 1:18 pm 3 WEEKS July 24, 2024 11: 07am Fatigued September 04, 2024 10:26a m Reason for Visit Admit Date History of total left knee replacement F ebruary 2024 9:30am Pes anserinus bursitis of left knee Febr uary 2024 9:30am Anemia July 03, 2024 1:18 pm Cervical [...] History of total left knee replacement M arch 2024 11:07am Pes anserinus bursitis of left knee Jarrod h 2024 11:07am Anemia September 04, 2024 10:26a [...] 2024 10:26am Opiate analgesic use agreement exists Jazmine martinez 2024 10:26am Left knee pain September 04, 2024 10:26a m Chief Complaint Admit Date [facility] f/u July 03, 2024 1:18 pm 3 WEEKS [...] History of total left knee replacement M arch 2024 11:07am Pes anserinus bursitis of left knee Jarrod h 2024 11:07am Anemia September 04, 2024 10:26a [...] 2024 10:26am Opiate analgesic use agreement exists Jazmine martinez 2024 10:26am Left knee pain September 04, 2024 10:26a m Chief Complaint Admit Date Fatigued September 04, 2024 10:26a m Weakness/Mobility Issues September 29, 2024 11:34am Weakness November 02, 2024 3:00p m Reason for Visit Admit Date Anemia September 04, 2024 10:26a m Cervical [...] knee pain September 04, 2024 10:26a m Anemia September 29, 2024 11:34 am Chemotherapy-induced peripheral neuropat hy September 29, 2024 11:34am Chronic HFrEF (heart failure with reduce d ejection fraction) September 29, 2024 11:34am Chronic kidney disease September 29, 2024 11 :34am Chronic venous insufficiency of lower ex tremity September 29, 2024 11:34am Hypertension September 29, 2024 11:34 am Lumbar stenosis without neurogenic my ication September 29, 2024 11:34am Opiate analgesic use agreement exists Ma y 2024 11:34am Right hand weakness September 29, 2024 11:34 am Unsteady gait when walking September 29 11:34am Acute hypotension November 02, 2024 3:00p m LATANYA (acute kidney injury) November 02, 2024 3:00pm Altered mental status November 02, 2024 3:0 0pm Pancolitis November 02, 2024 3:00p m Chief Complaint Admit Date Fatigued September 04, 2024 10:26a m Weakness/Mobility Issues September 29, 2024 11:34am Weakness November 02, 2024 3:00p m Weakness November 09, 2024 12:0 0am Reason for Visit Admit Date Anemia September 04, 2024 10:26a m Cervical [...] 2024 10:26am Opiate analgesic use agreement exists Jazmine martinez 2024 10:26am Left knee pain September 04, 2024 10:26a m Anemia September 29, 2024 11:34 am Chemotherapy-induced peripheral neuropat hy September 29, 2024 11:34am Chronic HFrEF (heart failure with reduce d ejection fraction) September 29, 2024 11:34am Chronic kidney disease September 29, 2024 11 :34am Chronic venous insufficiency of lower ex tremity September 29, 2024 11:34am Hypertension September 29, 2024 11:34 am Lumbar stenosis without neurogenic my ication September 29, 2024 11:34am Opiate analgesic use agreement exists Jazmine y 2024 11:34am Right hand weakness September 29, 2024 11:34 am Unsteady gait when walking September 29 11:34am Abnormal CT of the abdomen November 02 3:00pm Acute hypotension November 02, 2024 3:00p m LATANYA (acute kidney injury) November 02, 2024 3:00pm Altered mental status November 02, 2024 3:0 0pm Anemia November 02, 2024 3:00p m Clau cystitis November 02, 2024 3:00p m Chemotherapy-induced peripheral neuropat hy November 02, 2024 3:00pm Chronic back pain November 02, 2024 3:00p m Chronic kidney disease November 02, 2024 3: 00pm Chronic venous insufficiency of lower ex tremity November 02, 2024 3:00pm Elevated liver transaminase level November 022024 3:00pm HFrEF (heart failure with reduced ejecti on fraction) November 02, 2024 3:00pm Impaired mobility and activities of luisa y living November 02, 2024 3:00pm Left bundle branch block November 02, 2024 3:00pm Metabolic encephalopathy November 02, 2024 3:00pm Mitral regurgitation November 02, 2024 3:00 pm Orthostatic hypotension November 02, 2024 3 :00pm Pancolitis November 02, 2024 3:00p m Post ICU syndrome November 02, 2024 3:00p m Septic shock November 02, 2024 3:00p m Chief Complaint Admit Date Fatigued September 04, 2024 10:26a m Weakness/Mobility Issues September 29, 2024 11:34am Weakness November 02, 2024 3:00p m Weakness November 09, 2024 12:0 0am Metabolic Encephalopathy s/t Sepsis November 14, 2024 6:25pm Metabolic Encephalopathy s/t Sepsis November 21, 2024 12:00am Metabolic Encephalopathy s/t Sepsis November 28, 2024 12:00am Reason for Visit Admit Date Anemia September 04, 2024 10:26a m Cervical [...] 2024 10:26am Opiate analgesic use agreement exists Jazmine martinez 2024 10:26am Left knee pain September 04, 2024 10:26a m Anemia September 29, 2024 11:34 am Chemotherapy-induced peripheral neuropat hy September 29, 2024 11:34am Chronic HFrEF (heart failure with reduce d ejection fraction) September 29, 2024 11:34am Chronic kidney disease September 29, 2024 11 :34am Chronic venous insufficiency of lower ex tremity September 29, 2024 11:34am Hypertension September 29, 2024 11:34 am Lumbar stenosis without neurogenic my ication September 29, 2024 11:34am Opiate analgesic use agreement exists Jazmine martinez 2024 11:34am Right hand weakness September 29, 2024 11:34 am Unsteady gait when walking September 29 11:34am Ab[address] CT of the abdomen November 02 3:00pm LATANYA (acute kidney injury) November 02, 2024 3:00pm Anemia November 02, 2024 3:00p m Clau cystitis November 02, 2024 3:00p m Chemotherapy-induced peripheral neuropat hy November 02, 2024 3:00pm Chronic back pain November 02, 2024 3:00p m Chronic kidney disease November 02, 2024 3: 00pm Chronic venous insufficiency of lower ex tremity November 02, 2024 3:00pm HFrEF (heart failure with reduced ejecti on fraction) November 02, 2024 3:00pm Impaired mobility and activities of luisa y living November 02, 2024 3:00pm Left bundle branch block November 02, 2024 3:00pm Mitral regurgitation November 02, 2024 3:00 pm Orthostatic hypotension November 02, 2024 3 :00pm Post ICU syndrome November 02, 2024 3:00p m Acute hypotension November 02, 2024 3:00p m Altered mental status November 02, 2024 3:0 0pm Elevated liver transaminase level November 022024 3:00pm Metabolic encephalopathy November 02, 2024 3:00pm Pancolitis November 02, 2024 3:00p m Septic shock November 02, 2024 3:00p m LATANYA (acute kidney injury) November 14 6:25pm Clau cystitis November 14, 2024 6:25 pm Chronic kidney disease November 14, 2024 6 :25pm Hematoma November 14, 2024 6:25 pm HFrEF (heart failure with reduced ejecti on fraction) November 14, 2024 6:25pm Impaired mobility and activities of luisa y living November 14, 2024 6:25pm 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, 2024 6:25 pm Elevated liver transaminase level October 312024 6:25pm Metabolic encephalopathy November 14, 2024 6:25pm Pancolitis November 14, 2024 6:25 pm Septic shock November 14, 2024 6:25 pm Chief Complaint Admit Date Weakness November 02, 2024 3:00p m Weakness November 09, 2024 12:0 0am Metabolic Encephalopathy s/t Sepsis November 14, 2024 6:25pm Metabolic Encephalopathy s/t Sepsis November 21, 2024 12:00am Metabolic Encephalopathy s/t Sepsis November 28, 2024 12:00am Fdc Visit December 07, 2024 11: 59pm Fdc Visit December 21, 2024 11 :59pm Amb Documentation January 09, 2025 1:50pm N17.9 I50.20 January 11, 2025 3:24pm Hospital F/U January 11, 2025 4:07pm Reason for Visit Admit Date Abnormal CT of the abdomen November 02 3:00pm Anemia November 02, 2024 3:00p m Chemotherapy-induced peripheral neuropat hy November 02, 2024 3:00pm Chronic back pain November 02, 2024 3:00p m Chronic kidney disease November 02, 2024 3: 00pm Chronic venous insufficiency of lower ex tremity November 02, 2024 3:00pm HFrEF (heart failure with reduced ejecti on fraction) November 02, 2024 3:00pm Impaired mobility and activities of luisa y living November 02, 2024 3:00pm Left bundle branch block November 02, 2024 3:00pm Mitral regurgitation November 02, 2024 3:00 pm Orthostatic hypotension November 02, 2024 3 :00pm Post ICU syndrome November 02, 2024 3:00p m Acute hypotension November 02, 2024 3:00p m LATANYA (acute kidney injury) November 02, 2024 3:00pm Altered mental status November 02, 2024 3:0 0pm Clau cystitis November 02, 2024 3:00p m Elevated liver transaminase level November 022024 3:00pm Metabolic encephalopathy November 02, 2024 3:00pm Pancolitis November 02, 2024 3:00p m Septic shock November 02, 2024 3:00p m Chronic kidney disease November 14, 2024 6 :25pm Hematoma November 14, 2024 6:25 pm HFrEF (heart failure with reduced ejecti on fraction) November 14, 2024 6:25pm Impaired mobility and activities of luisa y living November 14, 2024 6:25pm 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, 2024 6:25 pm LATANYA (acute kidney injury) November 14 6:25pm Clau cystitis November 14, 2024 6:25 pm Elevated liver transaminase level October [id number] 6:25pm Metabolic encephalopathy November 14, 2024 6:25pm Pancolitis November 14, 2024 6:25 pm Septic shock November 14, 2024 6:25 pm HFrEF (heart failure with reduced ejecti on fraction) January 11, 2025 4:07pm Acute kidney injury January 11, 2025 4:07pm Chief Complaint Admit Date Weakness November 02, 2024 3:00p m Weakness November 09, 2024 12:0 0am Metabolic Encephalopathy s/t Sepsis November 14, 2024 6:25pm Metabolic Encephalopathy s/t Sepsis November 21, 2024 12:00am Metabolic Encephalopathy s/t Sepsis November 28, 2024 12:00am Fdc Visit December 07, 2024 11: 59pm Fdc Visit December 21, 2024 11 :59pm Amb Documentation January 09, 2025 1:50pm N17.9 I50.20 January 11, 2025 3:24pm Hospital F/U January 11, 2025 4:07pm [facility] follow up January 15, 2025 11:36am Reason for Visit Admit Date Abnormal CT of the abdomen November 02 3:00pm Anemia November 02, 2024 3:00p m Chemotherapy-induced peripheral neuropat hy November 02, 2024 3:00pm Chronic back pain November 02, 2024 3:00p m Chronic kidney disease November 02, 2024 3: 00pm Chronic venous insufficiency of lower ex tremity November 02, 2024 3:00pm HFrEF (heart failure with reduced ejecti on fraction) November 02, 2024 3:00pm Impaired mobility and activities of luisa y living November 02, 2024 3:00pm Left bundle branch block November 02, 2024 3:00pm Mitral regurgitation November 02, 2024 3:00 pm Orthostatic hypotension November 02, 2024 3 :00pm Post ICU syndrome November 02, 2024 3:00p m Acute hypotension November 02, 2024 3:00p m LATANYA (acute kidney injury) November 02, 2024 3:00pm Altered mental status November 02, 2024 3:0 0pm Clau cystitis November 02, 2024 3:00p m Elevated liver transaminase level November 022024 3:00pm Metabolic encephalopathy November 02, 2024 3:00pm Pancolitis November 02, 2024 3:00p m Septic shock November 02, 2024 3:00p m Chronic kidney disease November 14, 2024 6 :25pm Hematoma November 14, 2024 6:25 pm HFrEF (heart failure with reduced ejecti on fraction) November 14, 2024 6:25pm Impaired mobility and activities of luisa y living November 14, 2024 6:25pm 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, 2024 6:25 pm LATANYA (acute kidney injury) November 14 6:25pm Clau cystitis November 14, 2024 6:25 pm Elevated liver transaminase level October [id number] 6:25pm Metabolic encephalopathy November 14, 2024 6:25pm Pancolitis November 14, 2024 6:25 pm Septic shock November 14, 2024 6:25 pm HFrEF (heart failure with reduced ejecti on fraction) January 11, 2025 4:07pm Acute kidney injury January 11, 2025 4:07pm Anemia January 15, 2025 11:36am Chemotherapy-induced peripheral neuropat hy January 15, 2025 11:36am Chronic HFrEF (heart failure with reduced ejection fraction) January 15, 2025 11:36am Chronic kidney disease January 15, 025 11:36am Chronic venous insufficiency of lower ex tremity January 15, 2025 11:36am Hypertension January 15, 2025 11:36am Lumbar stenosis without neurogenic my ication January 15, 2025 11:36am Opiate analgesic use agreement exists Se ptember 2024 11:36am Unsteady gait when walking January 11:36am Reason for Referral SpecialtyDiagnoses / ProceduresReferred By ContactReferred To ContactCardiology Diagnoses Mitral valve insufficiency, unspecified etiology Procedures Transthoracic Echo Complete CT ECHO TTHRC R-T 2D W/WOM-MODE COMPL SPEC&COLR D Bryce Hendrickson MD [address] [place] [address], [address] [address] [facility] DateExpiration DateVisits RequestedVisits [id number] Review Perform Procedure [id number] / ProceduresReferred By ContactReferred To ContactCardiology Diagnoses Mitral valve insufficiency, unspecified etiology Procedures Follow Up In Cardiology Bryce Hendrickson MD [address] [place] [address] 2, [address] [address] Bryce Hendrickson MD [address] [place] [address] 2, [address] [address] Ref[facility] DateExpiration DateVisits RequestedVisits [id number]/ Reason evaluate and treat Diagnosis 1 Lumbar stenosis with neurogenic claudication (M48.062) [facility] Referring Provider First Name Vivi Referring Provider Last Name Kalyan Referring Provider Specialty Nurse Rochelle wild Referred Organization [facility] Referred Address [address] [place], [place],[address] Referred Provider Specialty Physical The rapist Referral Priority Routine Reason *Waiting for appt Evaluate and Treat Intra-articular Diagnostic Therapeutic L Hip Injection Diagnosis 1 Arthropathy of left hip (M16.12) Referral Organization [facility] Referring Provider First Name Devin Referring Provider Last Name Lizzeth Referring Provider Specialty Neurologica l Surgery Referred Organization [facility] [place] Referred Provider Artie Blackburn Referred Address [address] [place],[address] Referred Provider Specialty Pain Medicin e Referral Priority Routine General Notes Fore, Valeri 022 08:24:55 AM >Received today and sent P2P Reason *FU 01/09 Evaluate and Treat Left Hip Pain Diagnosis 1 Arthropathy of left hip (M16.12) Referral Organization [facility] Referring Provider First Name Devin Referring Provider Last Name Lizzeth Referring Provider Specialty Neurologica l Surgery Referred Organization [facility] Referred Provider Eran Hankins Referred Address ,[place], [place],[address] Referred Provider Specialty Orthopedic S urgery Referral Priority Routine General Notes [facility], Valeri 022 12:36:21 PM >Received and [...] problems noted below but recently was at [facility] for chest pain and had ruled [...] chest pain requiring an ER visit to [facility]. Assessment was negative in the ER. [...] section and content) DATE CREATED AUTHOR 12/22/2017 [facility] DATE CREATED AUTHOR AUTHOR'S ORGANIZ ATION 04/24/2020 [facility] DATE CREATED AUTHOR AUTHOR'S ORGANIZ ATION 06/27/2020 [facility] DATE CREATED AUTHOR AUTHOR'S ORGANIZ ATION 05/12/2022 [facility] DATE CREATED AUTHOR AUTHOR'S ORGANIZ ATION 05/14/2022 [facility] DATE CREATED AUTHOR AUTHOR'S ORGANIZ ATION 09/04/2022 [facility] DATE CREATED AUTHOR AUTHOR'S ORGANIZ ATION 02/01/2023 [facility] DATE CREATED AUTHOR AUTHOR'S ORGANIZ ATION 05/02/2023 [facility] DATE CREATED AUTHOR AUTHOR'S ORGANIZ ATION 11/20/2024 [facility] DATE CREATED AUTHOR AUTHOR'S ORGANIZ ATION 01/25/2025 [facility] DATE CREATED AUTHOR AUTHOR'S ORGANIZ ATION 02/04/2025 [facility] DATE CREATED AUTHOR AUTHOR'S ORGANIZ ATION 02/17/2025 [facility] DATE CREATED AUTHOR AUTHOR'S ORGANIZ ATION 02/20/2025 [facility] Care Teams (unrecognized sec tion and content) Team Status: Active Member Role Status Dates Sylvester Jacob DO Primary Care Provider Active Team Status: Active Member Role Status Dates Sylvester Jacob DO Primary Care Provider Active Start: October 13, 2024 Sylvester Jacob DOAttending ProviderActiveStart: October 13, 2024 Team Status: Active Member Role Status Dates Sylvester Jacob DO Primary Care Provider Active Start: November 02, 2024 Regina M Jose , DOEmergency ProviderActiveStart: November 02, 2024 Rosy Fineit ProviderActiveStart: November 02, 2024 Josh Sosa MDOther ProviderActiveStart: November 02, 2024 Carly Cuevas , DISPATCH CLERK ACNP-BCOther ProviderActiveStart: November 02, 2024 Josue Cosme MDOther ProviderActiveStart: November 02, 2024 Lloyd Liu MDOther ProviderActiveStart: November 02, 2024 Panda Dietrich MDOther ProviderActiveStart: November 02, 2024 Charlie Garcia DOOther ProviderActiveStart: November 02, 2024 Romana Mccallum DOOther ProviderActiveStart: November 02, 2024 Cherise Lewis MDOther ProviderActiveStart: November 02, 2024 Casimiro Booth MDOther ProviderActiveStart: November 02, 2024 Sorin Timmons MDOther ProviderActiveStart: November 02, 2024 Tino Gaffney MDOther ProviderActiveStart: November 02, 2024 Danyelle Mathews MDOther ProviderActiveStart: November 02, 2024 Jarrett Costaher ProviderActiveStart: November 02, 2024 Sherin Arellano MDOther ProviderActiveStart: November 02, 2024 Hung Ryan MDOther ProviderActiveStart: November 02, 2024 Yasmine Shawending ProviderActiveStart: November 02, 2024 Sin Martinez MDOther ProviderActiveStart: November 02, 2024 Zak Blanca MDAttending ProviderActiveStart: November 02, 2024 End: November 14, 2024Zenobia Carrasco MDOther ProviderActiveStart: November 02, 2024 End: November 14, 2024Saman Marino MDOther ProviderActiveStart: November 02, 2024 End: November 14, 2024Marley Mendieta , APRNOther ProviderActiveStart: November 02, 2024 End: November 14enedisylvain Garza Jr, DOOther ProviderActiveStart: November 02, 2024 End: November 14carolin Louis MDOther ProviderActiveStart: November 02, 2024 End: November 14, 2024 Team Status: Active Member Role Status Dates Sylvester Jacob DO Primary Care Provider Active Start: November 09, 2024 Regina Garcia DOEmergency ProviderActiveStart: November 09, 2024 Josh Sosa MDAdmit ProviderActiveStart: November 09, 2024 Carly Cuevas APRN ACNP-BCOther ProviderActiveStart: November 09, 2024 Josue Cosme MDOther ProviderActiveStart: November 09, 2024 Lloyd Liu MDOther ProviderActiveStart: November 09, 2024 Panda Dietrich MDOther ProviderActiveStart: November 09, 2024 Charlie Garcia DOOther ProviderActiveStart: November 09, 2024 Romana Mccallum , DOOther ProviderActiveStart: November 09, 2024 Cherise Lewis MDOther ProviderActiveStart: November 09, 2024 Casimiro Booth MDOther ProviderActiveStart: November 09, 2024 Sorin Timmons MDOther ProviderActiveStart: November 09, 2024 Tino Gaffney MDOther ProviderActiveStart: November 09, 2024 Danyelle Mathews MDOther ProviderActiveStart: November 09, 2024 Kimmy Fall NP-COther ProviderActiveStart: November 09, 2024 Sherin Arellano MDOther ProviderActiveStart: November 09, 2024 Hung Ryan MDOther ProviderActiveStart: November 09, 2024 Sin Martinez MDOther ProviderActiveStart: November 09, 2024 Landon Whitfield MDOther ProviderActiveStart: November 09, 2024 Liza Saldana RNOther ProviderActiveStart: November 09, 2024 Francis Butterfield DOOther ProviderActiveStart: November 09, 2024 Bryce Hendrickson MDOther ProviderActiveStart: November 09, 2024 Jayro Wilburn MDOther ProviderActiveStart: November 09, 2024 Madan Manzanares MDOther ProviderActiveStart: November 09, 2024 Allan Warren MDOther ProviderActiveStart: November 09, 2024 Carol Ann Bueno , APRNOther ProviderActiveStart: November 09, 2024 Lis Alcocer MDOther ProviderActiveStart: November 09, 2024 Rosalinda Parr MDOther ProviderActiveStart: November 09, 2024 Yo Dykes MDOther ProviderActiveStart: November 09, 2024 Priti Mandujano , AUDIOLOGY DOCTOR-BCOther ProviderActiveStart: November 09, 2024 Iraj Juan MDAttending ProviderActiveStart: November 09, 2024 Team Status: Active Member Role Status Dates Sylvester Jacob DO Primary Care Provider Active Start: November 14, 2024 Jared Louis MDAdmit ProviderActiveStart: November 14, 2024 Jared Louis MDOther ProviderActiveStart: November 14, 2024 Regina Leblanc , JAYAOther ProviderActiveStart: November 14, 2024 Theresa Velez , JAYAOther ProviderActiveStart: November 14, 2024 Magi Young , JAYAOther ProviderActiveStart: November 14, 2024 Blanca Arvizu , JAYAOther ProviderActiveStart: November 14, 2024 Nava Oconnell , JAYAOther ProviderActiveStart: November 14, 2024 Areli Marino , JAYAOther ProviderActiveStart: November 14, 2024 Mary Marc MDOther ProviderActiveStart: November 14, 2024 Cb Adam , DOOther ProviderActiveStart: November 14, 2024 Dylan Pozo MDOther ProviderActiveStart: November 14, 2024 Freddy Arnold , DOOther ProviderActiveStart: November 14, 2024 Guero Mott MDOther ProviderActiveStart: November 14, 2024 Yary Johnson MDOther ProviderActiveStart: November 14, 2024 Isaiah Bailey , DOOther ProviderActiveStart: November 14, 2024 Servando Kelly MDOther ProviderActiveStart: November 14, 2024 Roxie Love , APRNOther ProviderActiveStart: November 14, 2024 Jasmine Diaz MDOther ProviderActiveStart: November 14, 2024 Sterling Coats MDOther ProviderActiveStart: November 14, 2024 Israel Lu MDOther ProviderActiveStart: November 14, 2024 Gage Pena MDOther ProviderActiveStart: November 14, 2024 Isaiah Mejia , DOOther ProviderActiveStart: November 14, 2024 Wallace Meeks MDOther ProviderActiveStart: November 14, 2024 Yonas Hoyos MDOther ProviderActiveStart: November 14, 2024 Julito Malhotra , METAL BONDING HELPER-COther ProviderActiveStart: November 14, 2024 Leonardo Sanchez , APRNOther ProviderActiveStart: November 14, 2024 Zak Blanca MDOther ProviderActiveStart: November 14, 2024 Joaquin Pal MDOther ProviderActiveStart: November 14, 2024 Maynor Conway MDOther ProviderActiveStart: November 14, 2024 Dale Marcelo MDOther ProviderActiveStart: November 14, 2024 Meño Saldana MDOther ProviderActiveStart: November 14, 2024 Tatiana Sibley , DOOther ProviderActiveStart: November 14, 2024 Byron Dave , DOOther ProviderActiveStart: November 14, 2024 iX Sosa , APRNOther ProviderActiveStart: November 14, 2024 Zechariah Mccarthy , DOOther ProviderActiveStart: November 14, 2024 Ambika Kevin MDOther ProviderActiveStart: November 14, 2024 Radhika Bueno , APRNOther ProviderActiveStart: November 14, 2024 Tammi Giordano , APRNOther ProviderActiveStart: November 14, 2024 Kaveh Koehler MDOther ProviderActiveStart: November 14, 2024 Max Haji MDOther ProviderActiveStart: November 14, 2024 Nathaniel Lake , DOOther ProviderActiveStart: November 14, 2024 Elizabeth Reece , DOOther ProviderActiveStart: November 14, 2024 Caesar Conway MDOther ProviderActiveStart: November 14, 2024 Deborah Avina MDOther ProviderActiveStart: November 14, 2024 Belem Mauro , APRNOther ProviderActiveStart: November 14, 2024 Lisette Almaraz MDOther ProviderActiveStart: November 14, 2024 Josh Sosa MDOther ProviderActiveStart: November 14, 2024 Saman Duran MDOther ProviderActiveStart: November 14, 2024 Servando London MDOther ProviderActiveStart: November 14, 2024 Landon Whitfield MDOther ProviderActiveStart: November 14, 2024 Abi Ceballos , APRNOther ProviderActiveStart: November 14, 2024 Maria C Martinez , APRNOther ProviderActiveStart: November 14, 2024 Aura Alford RNOther ProviderActiveStart: November 14, 2024 Marley Mendieta , APRNAttending ProviderActiveStart: November 14, 2024 Team Status: Active Member Role Status Dates Sylvester Jacob DO Primary Care Provider Active Start: November 21, 2024 Juan Jose Bryan ProviderActiveStart: November 21, 2024 Jared Louis MDAttending ProviderActiveStart: November 21, 2024 Jared Loius MDOther ProviderActiveStart: November 21, 2024 Regina Leblanc , JAYAOther ProviderActiveStart: November 21, 2024 Theresa Velez , JAYAOther ProviderActiveStart: November 21, 2024 Magi Young , JAYAOther ProviderActiveStart: November 21, 2024 Blanca Arvizu , JAYAOther ProviderActiveStart: November 21, 2024 Nava Oconnell , JAYAOther ProviderActiveStart: November 21, 2024 Areli Marino , JAYAOther ProviderActiveStart: November 21, 2024 Mary Marc MDOther ProviderActiveStart: November 21, 2024 Cb Adam DOOther ProviderActiveStart: November 21, 2024 Dylan Pozo MDOther ProviderActiveStart: November 21, 2024 Freddy Arnold , DOOther ProviderActiveStart: November 21, 2024 Guero Mott MDOther ProviderActiveStart: November 21, 2024 Yary Johnson MDOther ProviderActiveStart: November 21, 2024 Isaiah Bailey , DOOther ProviderActiveStart: November 21, 2024 Servando Kelly MDOther ProviderActiveStart: November 21, 2024 Roxie Love , APRNOther ProviderActiveStart: November 21, 2024 Jasmine Diaz MDOther ProviderActiveStart: November 21, 2024 Sterling Coats MDOther ProviderActiveStart: November 21, 2024 Israel Lu MDOther ProviderActiveStart: November 21, 2024 Gage Pena MDOther ProviderActiveStart: November 21, 2024 Isaiah Mejia DOOther ProviderActiveStart: November 21, 2024 Wallace Meeks MDOther ProviderActiveStart: November 21, 2024 Yonas Hoyos MDOther ProviderActiveStart: November 21, 2024 Julito Malhotra , METAL BONDING HELPER-COther ProviderActiveStart: November 21, 2024 Leonardo Sanchez , APRNOther ProviderActiveStart: November 21, 2024 Zak Blanca MDOther ProviderActiveStart: November 21, 2024 Joaquin Pal MDOther ProviderActiveStart: November 21, 2024 Maynor Conway MDOther ProviderActiveStart: November 21, 2024 Dale Marcelo MDOther ProviderActiveStart: November 21, 2024 Meño Saldana MDOther ProviderActiveStart: November 21, 2024 Tatiana Sibley DOOther ProviderActiveStart: November 21, 2024 Byron Dave , DOOther ProviderActiveStart: November 21, 2024 Xi Sosa , APRNOther ProviderActiveStart: November 21, 2024 Zechariah Mccarthy , DOOther ProviderActiveStart: November 21, 2024 Ambika Kevin MDOther ProviderActiveStart: November 21, 2024 Radhika Bueno , APRNOther ProviderActiveStart: November 21, 2024 Tammi Giordano , APRNOther ProviderActiveStart: November 21, 2024 Kaveh Koehler MDOther ProviderActiveStart: November 21, 2024 Max Haji MDOther ProviderActiveStart: November 21, 2024 Nathaniel Lake , DOOther ProviderActiveStart: November 21, 2024 Elizabeth Reece , DOOther ProviderActiveStart: November 21, 2024 Caesar Conway MDOther ProviderActiveStart: November 21, 2024 Deborah Avina MDOther ProviderActiveStart: November 21, 2024 Belem Mauro , APRNOther ProviderActiveStart: November 21, 2024 Lisette Almaraz MDOther ProviderActiveStart: November 21, 2024 Josh Sosa MDOther ProviderActiveStart: November 21, 2024 Saman Duran MDOther ProviderActiveStart: November 21, 2024 Servando London MDOther ProviderActiveStart: November 21, 2024 Landon Whitfield MDOther ProviderActiveStart: November 21, 2024 Abi Ceballos , APRNOther ProviderActiveStart: November 21, 2024 Maria C Martinez , APRNOther ProviderActiveStart: November 21, 2024 Aura Alford RNOther ProviderActiveStart: November 21, 2024 Team Status: Active Member Role Status Dates Sylvester Jacob DO Primary Care Provider Active Start: November 28, 2024 Rosy Bryanit ProviderActiveStart: November 28, 2024 Yasmine Bryanending ProviderActiveStart: November 28, 2024 Jared Louis MDOther ProviderActiveStart: November 28, 2024 Regina Leblanc RNOther ProviderActiveStart: November 28, 2024 Theresa Velez , JAYAOther ProviderActiveStart: November 28, 2024 Magi Young , JAYAOther ProviderActiveStart: November 28, 2024 Blanca Arvizu RNOther ProviderActiveStart: November 28, 2024 Nava Oconnell RNOther ProviderActiveStart: November 28, 2024 Areli Marino RNOther ProviderActiveStart: November 28, 2024 Mary Marc MDOther ProviderActiveStart: November 28, 2024 Cb Adam , DOOther ProviderActiveStart: November 28, 2024 yDlan Pozo MDOther ProviderActiveStart: November 28, 2024 Freddy Arnold , DOOther ProviderActiveStart: November 28, 2024 Guero Mott MDOther ProviderActiveStart: November 28, 2024 Yary Johnson MDOther ProviderActiveStart: November 28, 2024 Isaiah Bailey DOOther ProviderActiveStart: November 28, 2024 Servando Kelly MDOther ProviderActiveStart: November 28, 2024 Roxie Love , APRNOther ProviderActiveStart: November 28, 2024 Jasmine Diaz MDOther ProviderActiveStart: November 28, 2024 Sterling Coats MDOther ProviderActiveStart: November 28, 2024 Israel Lu MDOther ProviderActiveStart: November 28, 2024 Gage Pena MDOther ProviderActiveStart: November 28, 2024 Isaiah Mejia DOOther ProviderActiveStart: November 28, 2024 Wallace Meeks MDOther ProviderActiveStart: November 28, 2024 Yonas Hoyos MDOther ProviderActiveStart: November 28, 2024 Julito Malhotra METAL BONDING HELPER-COther ProviderActiveStart: November 28, 2024 Leonardo Sanchez , APRNOther ProviderActiveStart: November 28, 2024 Zak Blanca MDOther ProviderActiveStart: November 28, 2024 Joaquin Pal MDOther ProviderActiveStart: November 28, 2024 Maynor Conway MDOther ProviderActiveStart: November 28, 2024 Dale Marcelo MDOther ProviderActiveStart: November 28, 2024 Meño Saldana MDOther ProviderActiveStart: November 28, 2024 Tatiana Toñito , DOOther ProviderActiveStart: November 28, 2024 Byron Dave , DOOther ProviderActiveStart: November 28, 2024 Xi Sosa , APRNOther ProviderActiveStart: November 28, 2024 Zechariah Mccarthy , DOOther ProviderActiveStart: November 28, 2024 Ambika Kevin MDOther ProviderActiveStart: November 28, 2024 Radhika Bueno , APRNOther ProviderActiveStart: November 28, 2024 Tammi Giordano , APRNOther ProviderActiveStart: November 28, 2024 Kaveh Koehler MDOther ProviderActiveStart: November 28, 2024 Max Haji MDOther ProviderActiveStart: November 28, 2024 Nathaniel Lake , DOOther ProviderActiveStart: November 28, 2024 Elizabeth Reece , DOOther ProviderActiveStart: November 28, 2024 Caesar Conway MDOther ProviderActiveStart: November 28, 2024 Deborah Avina MDOther ProviderActiveStart: November 28, 2024 Belem Mauro , APRNOther ProviderActiveStart: November 28, 2024 Lisette Almaraz MDOther ProviderActiveStart: November 28, 2024 Josh Sosa MDOther ProviderActiveStart: November 28, 2024 Saman Duran MDOther ProviderActiveStart: November 28, 2024 Servando London MDOther ProviderActiveStart: November 28, 2024 Landon Whitfield MDOther ProviderActiveStart: November 28, 2024 Abi Ceballos , APRNOther ProviderActiveStart: November 28, 2024 Maria C Martinez , APRNOther ProviderActiveStart: November 28, 2024 Aura Alford RNOther ProviderActiveStart: November 28, 2024 Team Status: Active Member Role Status Dates Sylvester Jacob DO Primary Care Provider Active Start: December 07, 2024 Sylvester Jacob DOAttchucho ProviderActiveStart: December 07, 2024 Team Status: Active Member Role Status Dates Sylvester Jacob DO Primary Care Provider Active Start: December 21, 2024 Sylvester Jacob DOAttchucho ProviderActiveStart: December 21, 2024 Team Status: Active Member Role Status Dates Sylvester Jacob DO Primary Care Provider Active Start: January 09, 2025 Jorge Carlson ProviderActiveStart: January 09, 2025 Team Status: Active Member Role Status Heidi Jacob DO Primary Care Provider Active Start: January 11, 2025 Danyelle Jorge Mathews ProviderActiveStart: January 11, 2025 Team Status: Inactive Member Role Status Dates Sylvester Jacob DO Primary Care Provider Active Start: January 11, 2025 End: January 11, 2025Malachielder Mathews MDAttending ProviderActiveStart: January 11, 2025 End: January 11, 2025 Team Status: Inactive Member Role Status Heidi Jacob DO Primary Care Provide r, Attending Provider Active Start: July 03, 2024 End: July 03, 2024 Team Status: Inactive Member Role Status Heidi Jacob DO Primary Care Provider Active Start: July 24, 2024 End: July 24, 2024Robcheyanne Cole II, MDAttending ProviderActiveStart: July 24, 2024 End: July 24, 2024 Team Status: Inactive Member Role Status Heidi Jacob DO Primary Care Provide r, Attending Provider Active Start: September 04, 2024 End: September 04, 2024 Team Status: Active Member Role Status Heidi Jacob DO Primary Care Provide r, Attending Provider Active Start: September 05, 2024 Team Status: Inactive Member Role Status Heidi Jacob DO Primary Care Provide r, Attending Provider Active Start: September 29, 2024 End: September 29, 2024 Team Status: Active Member Role Status Heidi Jacob DO Primary Care Provide r, Attending Provider Active Start: June 22, 2024 Team Status: Active Member Role Status Heidi Jacob DO Primary Care Provider Active Start: June 27, 2024 Jorge Carlson ProviderActiveStart: June 27, 2024 Team Status: Inactive Member Role Status Heidi Jacob DO Primary Care Provider Active Start: June 29, 2024 End: June 29, 2024Emory Cole II, MDAttending ProviderActiveStart: June 29, 2024 End: June 29, 2024 Team Status: Inactive Member Role Status Heidi Jacob DO Primary Care Provide r, Attending Provider Active Start: May 12, 2024 End: May 12, 2024 Team Status: Inactive Member Role Status Dates Sylvester Jacob DO Primary Care Provider Active Start: June 01, 2024 End: June 05Venkat Linn ProviderActiveStart: June 01, 2024 End: June 05, 2024MicShanelle Woodall ProviderActiveStart: June 01, 2024 End: June 05Yesenia Neal ProviderActiveStart: June 01, 2024 End: June 05, 2024Racarlos Whitfield MDAttending ProviderActiveStart: June 01, 2024 End: June 05, 2024Yesenia Murrieta ProviderActiveStart: June 01, 2024 End: June 05, 2024Yesenia Najera ProviderActiveStart: June 01, 2024 End: June 05, 2024Marley Mendieta APRNOther ProviderActiveStart: June 01, 2024 End: June 05enedisylvain Garza Jr, DOOther ProviderActiveStart: June 01, 2024 End: June 05carolin Louis MDOther ProviderActiveStart: June 01, 2024 End: June 05, 2024 Team Status: Active Member Role Status Dates Sylvester Jacob DO Primary Care Provide r, Attending Provider Active Start: June 01, 2024 Team Status: Active Member Role Status Dates Sylvester Jacob DO Primary Care Provider Active Start: June 03, 2024 Venkat Llanos ProviderActiveStart: June 03, 2024 Shanelle Brito Provider, Other ProviderActiveStart: June 03, 2024 Jorge Sanchez Provider, Other ProviderActiveStart: June 03, 2024 Team Status: Active Member Role Status Dates Sylvester Jacob DO Primary Care Provider Active Start: June 05, 2024 Venkat Llanos ProviderActiveStart: June 05, 2024 Shanelle Brito ProviderActiveStart: June 05, 2024 Yesenia Sanchez ProviderActiveStart: June 05, 2024 Yesenia Murrieta ProviderActiveStart: June 05, 2024 Saman Marino MDOther ProviderActiveStart: June 05, 2024 Marley Anam , APRNOther ProviderActiveStart: June 05, 2024 Iglesia Garza Jr, DOOther ProviderActiveStart: June 05, 2024 Jared Louis , RENETTAttending Provider, Other ProviderActiveStart: June 05, 2024 Landon Whitfield MDOther ProviderActiveStart: June 05, 2024 Team Status: Active Member Role Status Dates Sylvester Jacob DO Primary Care Provide r, Attending Provider Active Start: April 17, 2024 Team Status: Inactive Member Role Status Dates Sylvester Jacob DO Primary Care Provide r, Attending Provider Active Start: April 04, 2024 End: April 04, 2024 Team Status: Inactive Member Role Status Dates Romel William PA-C Emergency Provider Active Start: April 07, 2024 End: April 09SERGIO Garciarialfredoy Care ProviderActiveStart: April 07, 2024 End: April 09jeffery Sosa MDAdmit Provider, Attending ProviderActive Start: April 07, 2024 End: April 09, 2024Danyelle Mathews MDOther ProviderActiveStart: April 07, 2024 End: April 09, 2024 Team Status: Active Member Role Status Dates Romel William PA-C Emergency Provider Active Start: April 08, 2024 SERGIO Jamarialfredoy Care ProviderActiveStart: April 08, 2024 Josh Sosa MDAdmit Provider, Other ProviderActiveStart: April 08, 2024 Danyelle Mathews MDAttending Provider, Other ProviderActiveStart: April 08, 2024 Team Status: Active Member Role Status Dates Sylvester Jacob DO Primary Care Provider Active Start: April 10, 2024 Gwen Burk CMAAttending ProviderActiveStart: April 10, 2024 Team Status: Active Member Role Status Dates Sylvester Jacob DO Primary Care Provide r, Attending Provider Active Start: April 11, 2024 Team Status: Inactive Member Role Status Dates Sylvester Jacob DO Primary Care Provide r, Attending Provider Active Start: April 12, 2024 End: April 12, 2024 Team Status: Active Member Role Status Dates Bryce Hendrickson MD Attending Provider Active St art: March 31, 2024 Issac Jama Care ProviderActiveStart: March 31, 2024 Team Status: Active Member Role Status Dates Sylvester Jacob DO Primary Care Provider Active Start: June 01, 2024 Regina Garcia , DOEmergency ProviderActiveStart: June 01, 2024 Isaiah Mejia , Admit Provider, Attending ProviderActiveStart: June 01, 2024 Team Status: Inactive Member Role Status Dates Sylvester Jacob DO Primary Care Provider Active Start: August 11, 2023 End: August 10omas Feltviet MDAttending ProviderActiveStart: August 11, 2023 End: August 11, 2023 Team Status: Inactive Member Role Status Dates Sylvester Jacob DO Primary Care Provider Active Start: September 07, 2023 End: September 06omas Bere MDAttending ProviderActiveStart: September 07, 2023 End: September 07, 2023 Team Status: Active Member Role Status Dates Sylvester Jacob DO Primary Care Provider Active Start: September 07, 2023 Artie Blackburn , MDAttending Provider, Other ProviderActiveStart: September 07, 2023 Team Status: Inactive Member Role Status Heidi Jacob DO Primary Care Provide r, Attending Provider Active Start: September 14, 2023 End: September 14, 2023 Team Status: Active Member Role Status Dates Sylvester Jacob DO Primary Care Provide r, Attending Provider Active Start: September 17, 2023 Team Status: Inactive Member Role Status Dates Sylvester Jacob DO Primary Care Provider Active Start: September 22, 2023 End: September 22, 2023Thurvashi Felt[place] , MDAttending ProviderActiveStart: September 22, 2023 End: September 22, 2023 Team Status: Inactive Member Role Status Dates Sylvester Jacob DO Primary Care Provider Active Start: October 19, 2023 End: October 18libertad Moreau MDAttending ProviderActiveStart: October 19, 2023 End: October 19, 2023 Team Status: Inactive Member Role Status Dates Sylvester Jacob DO Primary Care Provider Active Start: November 01, 2023 End: November 01, 2023Ana Maria Landeros APRN METAL BONDING HELPER-CAttennatalia ProviderActiveStart: November 01, 2023 End: November 01, 2023 Team Status: Active Member Role Status Dates NON STAFF Primary Care Provider Active Start: June 29, 2023 HOMERO QuinteroAAtnader ProviderActiveStart: June 29, 2023 Team Status: Inactive Member Role Status Dates Sylvester Jacob DO Primary Care Provider Active Start: July 20, 2023 End: July 19Jorge Mcpherson ProviderActiveStart: July 20, 2023 End: July 20, 2023 Team Status: Inactive Member Role Status Dates Devin Moreau MD Attending Provider Active Star t: July 20, 2023 End: July 19kyakaroline Issac Jacob ProviderActiveStart: July 20, 2023 End: July 20, 2023 Team Status: Active Member Role Status Dates Sylvester Jacob DO Primary Care Provider Active Start: July 28, 2023 Edyta Whiting RMAAtrosangelanatalia ProviderActiveStart: July 28, 2023 Team Status: Inactive Member Role Status Dates Sylvester Jacob DO Primary Care Provider Active Jorge Frederick ProviderActiveTeam MemberRelationshipSpecialtyStart DateEnd Date Nidia Sylvester Galo, DO [address] [place] [address] PCP - GeneralInternal Medicine06/04/20Team MemberRelationshipSpecialtyStart Date End Date NidiaSylvester, DO [address] [place] [id number] [facility] - [facility]06/04/20Team MemberRelationshipSpecialtyStart Date End Date NidiaSylvester SampsonDO [address] [place] [address] PCP - Bjtjcvr18/23/19 Team Status: Inactive Member Role Status Dates Radha Moreau MD Attending Provider Active Team Status: Inactive Member Role Status Dates Devin Moreau MD Attending Provider Active Team Status: Active Member Role Status Dates NON STAFF Primary Care Provider Active Team Status: Inactive Member Role Status Dates Devin Moreau MD Attending Provider Active NON STAFFPrimary Care ProviderActiveJared Louis MDOther Provider Active Team Status: Inactive Member Role Status Dates NON STAFF Primary Care Provider Active Juan Jose Najera Provider, Attending ProviderActive Team Status: Inactive Member Role Status Dates Devin Moreau MD Attending Provider Active Star t: March 26, 2023 End: March 26, 2023 Team Status: Inactive Member Role Status Dates Sylvester Jacob DO Primary Care Provider Active Start: April 09, 2023 End: April 09libertad Moreau MDAttending ProviderActiveStart: April 09, 2023 End: April 09, 2023 Team Status: Inactive Member Role Status Dates Devin Moreau MD Attending Provider Active Star t: April 13, 2023 End: April 15, 2023NON STAFFPrimary Care ProviderActiveStart: April 13, 2023 End: April 15carolin Louis MDOther ProviderActiveStart: April 13, 2023 End: April 15, 2023 Team Status: Inactive Member Role Status Dates NON STAFF Primary Care Provider Active Start: April 15, 2023 End: April 20, 2023JoseJuan Jose Min Provider, Attending Provider ActiveStart: April 15, 2023 End: April 20, 2023 Team Status: Inactive Member Role Status Dates Devin Moreau MD Attending Provider Active Star t: April 27, 2023 End: April 27, 2023 Team Status: Inactive Member Role Status Dates Sylvester Jacob DO Attending Provider Active Sta rt: April 29, 2023 End: April 29, 2023 Team Status: Active Member Role Status Dates Provider Conversion Attending Provider Active St art: May 07, 2023 Team Status: Inactive Member Role Status Dates MARY MorenoC Attending Provider Active Start: May 26, 2023 End: May 26, 2023 Team Status: Inactive Member Role Status Dates NON STAFF Primary Care Provider Active Start: May 26, 2023 End: May 26, 2023Vivi Biggs METAL BONDING HELPER-CAttending ProviderActiveStart: May 26, 2023 End: May 26, 2023 Team Status: Inactive Member Role Status Dates NON STAFF Primary Care Provider Active Start: June 21, 2023 End: June 21, 2023Vivi Biggs METAL BONDING HELPER-CAttending ProviderActiveStart: June 21, 2023 End: June 21, 2023Team MemberRelationshipSpecialtyStart DateEnd Date Sylvester Jacob DO PCP - [facility] Medicine06/04/20Team MemberRelationshipSpecialtyStart Date End Date Sylvester Jacob DO PCP - Sjrfyeu64/23/19 Team Status: Active Member Role Status Dates NON STAFF Primary Care Provider Active Start: June 22, 2023 Sylvester Jacob DOAttending ProviderActiveStart: June 22, 2023 Team Status: Active Member Role Status Dates Sylvester Jacob DO Primary Care Provider Active Start: July 20, 2023 Devin Moreau MDAttchucho ProviderActiveStart: July 20, 2023 Team Status: Active Member Role Status Dates Syvlester Jacob DO Primary Care Provider Active Start: October 19, 2023 Devin Moreau MDAttending ProviderActiveStart: October 19, 2023 Team Status: Inactive Member Role Status Dates Sylvester Jacob DO Primary Care Provider Active Start: November 24, 2023 End: November 23omas Feltviet , MDAttending ProviderActiveStart: November 24, 2023 End: November 24, 2023 Team Status: Inactive Member Role Status Dates Sylvester Jacob DO Primary Care Provide r, Attending Provider Active Start: December 13, 2023 End: December 13, 2023 Team Status: Inactive Member Role Status Dates Sylvester Jacob DO Primary Care Provider Active Start: December 21, 2023 End: December 20omas Feltviet , MDAttending ProviderActiveStart: December 21, 2023 End: December 21, 2023 Team Status: Active Member Role Status Dates Sylvester Jacob DO Primary Care Provider Active Start: December 21, 2023 Artie Bere MDAttending Provider, Other ProviderActiveStart: December 21, 2023 Team Status: Inactive Member Role Status Dates Sylvester Jacob DO Primary Care Provider Active Start: January 05, 2024 End: January 05, 2024Thomas Felter , MDAttending ProviderActiveStart: January 05, 2024 End: January 05, 2024Team MemberRelationshipSpecialtyStart DateEnd Date Sylvester Jacob DO PCP - GeneralInternal Medicine06/04/20 Team Status: Active Member Role Status Dates Sylvester Jacob DO Primary Care Provider Active Start: February 08, 2024 Jorge Frederick ProviderActiveStart: February 08, 2024 Team Status: Inactive Member Role Status Dates Sylvester Jacob DO Primary Care Provider Active Start: February 08, 2024 End: February 07Jorge Mcpherson ProviderActiveStart: February 08, 2024 End: February 08, 2024 Team Status: Inactive Member Role Status Dates Sylvester Jacob DO Primary Care Provide r, Attending Provider Active Start: March 01, 2024 End: March 01, 2024 Team Status: Active Member Role Status Dates Sylvester Jacob DO Primary Care Provide r, Attending Provider Active Start: March 01, 2024 Team MemberRelationshipSpecialtyStart DateEnd Date Sylvester Jacob MD [address] [place] [id number] PCP - GeneralInternal [facility]09/30/22Team MemberRelationshipSpecialtyStart Date End Date Sylvester Jacob MD [address] [place] [address] PCP - GeneralInternal Medicine09/30/22Team MemberRelationshipSpecialtyStart Date End Date Sylvseter Jacob MD [address] [place] [address] PCP - GeneralInternal Medicine09/30/22Team MemberRelationshipSpecialtyStart Date End Date Sylvester Jacob DO [address] [place] [address] PCP - GeneralInternal Medicine01/05/24Team MemberRelationshipSpecialtyStart Date End Date Sylvester Jacob DO [address] [place] [address] PCP - GeneralInternal Medicine01/05/24Team MemberRelationshipSpecialtyStart Date End Date Sylvester Jacob MD [address] [place] [facility] [address] PCP - GeneralInternal Medicine09/30/22Team MemberRelationshipSpecialtyStart Date End Date Sylvester Jacob MD [address] [place] [facility] [address] PCP - GeneralInternal Medicine09/30/22Team MemberRelationshipSpecialtyStart Date End Date Sylvester Jacob MD [address] [place] [facility] [address] PCP - GeneralInternal Medicine09/30/22 Team Status: Inactive Member Role Status Dates Sylvester Jacob DO Primary Care Provider Active Start: June 01, 2024 End: June 05lexkimberly Garcia DOEmergency ProviderActiveStart: June 01, 2024 End: June 05, 2024Micnuris Mejia DOAdmit ProviderActiveStart: June 01, 2024 End: June 05ward Arellano MDOther ProviderActiveStart: June 01, 2024 End: June 05, 2024Zenobia aCrrasco MDOther ProviderActiveStart: June 01, 2024 End: June 05, 2024Saman Marino MDOther ProviderActiveStart: June 01, 2024 End: June 05, 2024Marley Mendieta APRNOt ProviderActiveStart: June 01, 2024 End: June 05enedisylvain Garza Jr, DOOther ProviderActiveStart: June 01, 2024 End: June 05carolin Louis MDOther ProviderActiveStart: June 01, 2024 End: June 05, 2024Landon Whitfield MDAttending ProviderActiveStart: June 01, 2024 End: June 05, 2024 Team Status: Active Member Role Status Dates Sylvester Jacob DO Primary Care Provider Active Start: June 29, 2024 Emory Cole II, RENETTAttending ProviderActiveStart: June 29, 2024 Team MemberRelationshipSpecialtyStart DateEnd Date Sylvester Jacob MD [address] [place] [facility] [place] [address] PCP - GeneralInternal Medicine09/30/22Team MemberRelationshipSpecialtyStart Date End Date Sylvester Jacob DO PCP - GeneralInternal Medicine06/04/20Team MemberRelationshipSpecialtyStart Date End Date Sylvester Jacob DO PCP - GeneralInternal Medicine06/04/20Team MemberRelationshipSpecialtyStart Date End Date Sylvester Jacob DO [address] [place] [address] PCP - GeneralInternal Medicine09/30/22Team MemberRelationshipSpecialtyStart Date End Date Sylvester Jacob DO [address] [place] [facility] [address] PCP - GeneralInternal Medicine09/30/22Team MemberRelationshipSpecialtyStart Date End Date Sylvester Jacob DO [address] [place] [facility] [id number] PCP - GeneralInternal Medicine09/30/22Team MemberRelationshipSpecialtyStart Date End Date Sylvester Jacob DO [address] [place] [facility] [address] [facility] - [facility]09/30/22Team MemberRelationshipSpecialtyStart Date End Date Sylvester Jacob DO [address] [place] [facility] [address] PCP - [facility] Hospitalnal [facility]09/30/22Team MemberRelationshipSpecialtyStart Date End Date Sylvester Jacob DO [address] [place] [facility] [address] PCP - GeneralInternal Medicine09/30/22 Team Status: Inactive Member Role Status Dates Sylvester Jacob DO Primary Care Provider Active Start: September 04, 2024 End: September 04matt Jacob DOAttending ProviderActiveStart: September 04, 2024 End: September 04, 2024 Team Status: Active Member Role Status Dates Sylvester Jacob DO Primary Care Provider Active Start: September 05, 2024 Sylvester Jacob DOAttending ProviderActiveStart: September 05, 2024 Team Status: Inactive Member Role Status Dates Sylvester Jacob DO Primary Care Provider Active Start: September 29, 2024 End: September 29matt Jacob DOAttending ProviderActiveStart: September 29, 2024 End: September 29, 2024 Team Status: Active Member Role Status Dates Sylvester Jacob DO Primary Care Provider Active Start: November 02, 2024 Venkat Llanos ProviderActiveStart: November 02, 2024 Juan Jose Fine ProviderActiveStart: November 02, 2024 Jorge Fine ProviderActiveStart: November 02, 2024 Team Status: Inactive Member Role Status Dates Sylvester Jacob DO Primary Care Provider Active Start: January 15, 2025 End: January 15matt Jacob DOAttending ProviderActiveStart: January 15, 2025 End: January 15, 2025Team MemberRelationshipSpecialtyStart DateEnd Date Sylvester Jacob, DO [address] [place] [address] PCP - GeneralInternal [facility]01/05/24Team MemberRelationshipSpecialtyStart Date End Date Sylvester Jacob, DO [address] [place] [address] PCP - [facility]09/30/22Team MemberRelationshipSpecialtyStart Date End Date Sylvester Jacob, DO [address] [place] [address] [facility]09/30/22Team MemberRelationshipSpecialtyStart Date End Date Sylvester Jacob, DO [address] [place] [address] [facility] - [facility] Goals (unrecognized section and content) Goals may [...] FOR VISIT (unrecogniz ed section and content) ReasonOnset DateCommentsRefill Simwklf5905/06/2022ReasonCommentsBreast Cancer Follow upReasonCommentsFollow-up1 yearReasonCommentsPre-op Clearance6 weeks SpecialtyDiagnoses / ProceduresReferred By ContactReferred To ContactCardiology Diagnoses Mitral valve insufficiency, unspecified etiology Essential hypertension Procedures Follow Up In Cardiology Bryce Hendrickson MD [address] [facility] 2, [address] [place], [place] [id number] Bryce Hendrickson MD [address] [place] [address] [address], [place] [id number] [facility] DateExpiration DateVisits RequestedVisits [id number]/31/202310/[id number] Cancer ReasonCommentsFollow-up4 monthsSpecialtyDiagnoses / ProceduresReferred By ContactReferred To ContactCardiology Diagnoses Mitral valve insufficiency, unspecified etiology Procedures Follow Up In Cardiology Bryce Hendrickson MD [address] [facility] 2, [address] [address] Bryce Hendrickson MD [address] [facility] 2, [address] [place] [address] Referral IDStatus[facility] DateExpiration DateVisits RequestedVisits [id number]/16/202311/[id number] MammogramReasonCommentsAllergic RhinitisNasal polyp.TinnitusSpecialtyDiagnoses / ProceduresReferred By ContactReferred To ContactOtolaryngology Diagnoses Allergic rhinitis, unspecified Polyp of nasal cavity Tinnitus, bilateral Procedures CT UNLISTED [employer]ALUATION [employer] MANAGEMENT Sylvester Jacob MD [address] [place] [address] Phone: tel: Chuck Cope MD [address] [place] [address] Phone: tel: fax: Referral IDStatusReasonStart DateExpiration DateVisits RequestedVisits [id number]/31/20244/[id number] Sinusitis Follow up XR sinuses [facility] 03/23/24SpecialtyDiagnoses / ProceduresReferred By ContactReferred To ContactCardiology Diagnoses Mitral valve insufficiency, unspecified etiology Procedures Transthoracic Echo Complete CT ECHO TTHRC R-T 2D W/WOM-MODE COMPL SPEC&COLR D Bryce Hendrickson MD [address] [facility] 2, [address] [address] Referral IDStatJackson [facility] – AltusasonButner DateExpiration DateVisits RequestedVisits [id number] Perform Procedure [id number]-hx2 monthSpecialtyDiagnoses / ProceduresReferred By ContactReferred To ContactCardiology Diagnoses Mitral valve insufficiency, unspecified etiology Procedures Follow Up In Cardiology Bryce Hendrickson MD [address] [facility] 2, [address] [address] Phone: tel: fax: Bryce Hendrickson MD [address] [facility] [address], [address] [address] Phone: tel: fax: Referral IDStatusReasonButner DateExpiration DateVisits RequestedVisits [id number]/14/20243/14/[id number] careDeleonel Owen is a 73 y.o. female who presents for Nail Care.Patient relates she has been lettingher nails grow longer so she could mexican them. Last visit 12/2022. ReasonCommentsFollow-upReasonOnset DateCommentscancel fu appt for ct scan not done07/03/2024ReasonOnset DateCommentsRefill Gbdyxaq3608/07/2024ReasonComments Toenail CarePt is here today requesting nail care, she was last here 05-16-2024. Her Lt hallux nail is becoming painful for her. SS: 8ReasonCommentsFoot Pain Renuka Owen is a 73 y.o. female requesting to be seen for BL foot pain, Right is typically worse. Pain started 12 months ago, off/on. Pain on top of foot, worse by evening. 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 Patient has taken Gabapentin for years for herfoot pain. Patient is requesting xrays today. [id number] here for 8 month follow up for hypertension.SpecialtyDiagnoses / ProceduresReferred By ContactReferred To ContactCardiology Diagnoses Mitral valve insufficiency, unspecified etiology Procedures Follow Up In Cardiology Bryce Hendrickson MD [address] [place] [address] Phone: tel: fax: Bryce Hendrickson MD [address] [place] [address], [address] [address] Phone: tel: fax: Referral IDStatusReasonStart DateExpiration DateVisits RequestedVisits [id number]/2/20251/2/[id number] Source Comments (unrecognize d section and content) In the event this informatio n is protected by the Federal Confidentiality of Alcohol and Drug Abuse Patient Records regulations: The Federal rules restrict any use of the information to criminally investigate or prosecute any alcohol or drug abuse patient.[facility] HospitalIn the event this information is protected by the Federal Confidentiality of Alcohol and Drug Abuse Patient Records regulations: The Federal rules restrict any use of the information to criminally investigate or prosecute any alcohol or drug abuse patient.[facility] HospitalIn the event this information is protected by the Federal Confidentiality of Alcohol and Drug Abuse Patient Records regulations: The Federal rules restrict any use of the information to criminally investigate or prosecute any alcohol or drug abuse patient.[facility] HospitalIn the event this information is protected by the Federal Confidentiality of Alcohol and Drug Abuse Patient Records regulations: The Federal rules restrict any use of the information to criminally investigate or prosecute any alcohol or drug abuse patient.[facility] HospitalIn the event this information is protected by the Federal Confidentiality of Alcohol and Drug Abuse Patient Records regulations: The Federal rules restrict any use of the information to criminally investigate or prosecute any alcohol or drug abuse patient.[facility] HospitalIn the event this information is protected by the Federal Confidentiality of Alcohol and Drug Abuse Patient Records regulations: The Federal rules restrict any use of the information to criminally investigate or prosecute any alcohol or drug abuse patient.[facility] FOR RECORDS PERTAINING TO PATIENTS WHO ARE [...] BE BASED ON THE PRIMARY CLINICAL RECORDS. [facility] [employer] [facility]. provides no warranty or guarantee of the accuracy or completeness of information in this document.
== END 2025-02-20 12:54 | disposition home or self-care (01) ==
LOC: RAD 12:54
PROVIDERS: PCP Internal Medicine; Visit Provider Internal Medicine
DX: M81.0 Age-related osteoporosis without current pathological fracture (principal); M85.88 Other specified disorders of bone density and structure, other site
CPT/HCPCS: 77080

== ENCOUNTER 2025-02-28 14:29 | Outpatient (OUT) | payer MEDICARE, SELFPAY ==
--- OUTSIDE RECORDS SUMMARY | 2022-07-27 10:35 | XMS_ITS | Continuity of Care Document ---
Author Organization [facility] o Address [address] [place] [address] Phone Care Team Providers Care Hospice Bereavement Coordinator Name Role Phone Stephcharles FENG Luis Unavailable Unavailable Allergies, Adverse Reactions, Alerts Substance Reaction Status Criticality No Known allergies Medications Medication Instructions Dosage Effective Dates (start - stop) Status Comments Synthroid 75 mcg tablet - Ac tive lisinopril 10 mg tablet TAKE 1 TABLET BY MOUTH DAILY - Active propranolol 40 mg tablet TAKE 1 TABLET BY MOUTH TWICE DAILY - Active omeprazole 20 mg capsule,delayed release TAKE 1 CAPSULE BY MOUTH EVERY DAY - Active Synthroid 50 mcg tablet - Ac tive acetaminophen 325 mg tablet - Active ciprofloxacin 500 mg tablet - Active cephalexin 500 mg capsule TAKE ONE CAPSULE BY MOUTH FOUR TIMES A DAY FOR 10 DAYS - Active Procedures Procedure Date Office consultation, moderate-high Jul- Drain Or inject major jointor bursa X-ray exam of knee, 4+ views Methylprednisolone 80 MG inj Office/outpatient visit,new, mod 2022 Advance Directives Directive Yes / No Effective Date File Name No Information Encounters Encounter Description Practice Location Reason(s) For Visit Diagnoses Date Provider Providers Copied on Encounter Office consultation , moderate-hig h [facility], [address] [facility], [place], [address], tel:[phone] [place] Effusion, left kneePain in left kneeUnilatera l primary osteoarthriti s, left kneeContusion of left knee, initial encounter 3 Edgar Smith. [address] [facility], [place], [place], [id number] , [place]. tel:[phone] Referring Provider: Natan Rosenthal, [address], [place], [address] . tel:[phone] [facility] [place], [address] [place], [address], [place] tel:[phone] [place] No Information 3 Edgar Smith. [address], [place], [place], [id number] , [place]. tel:[phone] Family History Family Member Type Diagnosis Age At Onset No Information Payers Payer name Insurance type Covered constitution party ID Authoriza tion(s) Medicare [place] MB [id number] AARP Supplemental CI [id number] Social History Type Description Quantity Date Captured Comments Alcohol Use Details Unknown Caffeine Use Details Unknown Tobacco Use Status No Information Smoking Status No Information Sex Female Vital Signs Date / Time: Height Weight BMI Pulse Rate Blood Pressure Temperature Respiratory Rate Body Surface Area Head Circumference Head Circ. Percentile Wt./Mt. Percentile BMI percentile Pulse Ox Inhaled Ox 1:28 PM 64.00 in 77.564 kg (171.00 lbs) 29.3 5 kg/m eter (2) Chief Complaint And Reason For Visit No Information Reason For Referral Reason For Referral No Information History Of Present Illness Encounter Date Complaint History Of Prese nt Illness No Information Functional Status Date Functional Assessmen t Pain Score 4/10 Instructions Date Instruction Additional Infor mation No Information Assessments Type Assessment Date No Information Patient Care Teams Name Effective Dates (start - stop) Status Members No Information
--- OUTSIDE RECORDS SUMMARY | 2025-02-19 13:16 | XMS_ITS | Encounter Summary ---
Author Organization [facility] Address [address] [place] [address] Phone Care Team Providers Care Prosthetics Technician Name Role Phone Mervin Chanel Galo FENG Primary Care Provider [phone] Reason for Referral * CV Imaging (Routine) - AuthorizedSpecialtyDiagnoses / ProceduresReferred By ContactReferred To ContactCardiology Diagnoses Mitral valve insufficiency, unspecified etiology Left ventricular systolic dysfunction Procedures Transthoracic Echo Limited [place] ECHO TRANSTHORC R-T 2D W/WO M-MODE REC F-UP/LMTD VT DOPPLER ECHO COLOR FLOW VELOCITY MAPPING VT DOPPLER ECHO PULSE WAVE W/SPECTRAL F-UP/LMTD STD Harjeet Cheung MD [address] [place] [address] Phone: tel: fax: Referral IDStatusReasonStart DateExpiration DateVisits RequestedVisits [id number] Perform Procedure Reason for Visit * CV Imaging (Routine) - AuthorizedSpecialtyDiagnoses / ProceduresReferred By ContactReferred To ContactCardiology Diagnoses Mitral valve insufficiency, unspecified etiology Left ventricular systolic dysfunction Procedures Transthoracic Echo Limited [place] ECHO TRANSTHORC R-T 2D W/WO M-MODE REC F-UP/LMTD VT DOPPLER ECHO COLOR FLOW VELOCITY MAPPING VT DOPPLER ECHO PULSE WAVE W/SPECTRAL F-UP/LMTD STD Harjeet Cheung MD [address] [facility] [address] [place] [address] Phone: tel: fax: Referral IDStatusReasonStart DateExpiration DateVisits RequestedVisits [id number] Perform Procedure Encounter Details DateTypeDepartmentCare Team (Latest Contact Info)Sjzobssezrs51/20/2025 1:16 PM EDT - 02/19/2025 11:[address] [facility] [address] [address] Mitral valve insufficiency, unspecified etiology; Left ventricular systolic dysfunction Discharge Disposition: Home Social History Tobacco UseTypesPacks/DayYears UsedDateSmoking Tobacco: NeverSmokeless Tobacco: NeverAlcohol UseStandard Drinks/WeekCommentsYes0 (1 standard drink = 0.6 oz pure alcohol)rarelyCommentsNoSex and Gender InformationValueDate RecordedSex Assigned at YhmxwWzhngl40/31/2023 2:42 PM EDTLegal HnpOqrlqa56/26/2022 2:47 PM ESTGender KepigiuhNwtjyn84/31/2023 2:42 PM EDTSexual OrientationNot on file documented as of this encounter Last Filed Vital Signs Vital SignReadingTime TakenCommentsBlood Oubwutyj280/ 1:36 PM EDT Pulse--Temperature--Respiratory Rate--Oxygen Saturation--Inhaled Oxygen Concentration--Wviwhp27.1 kg (148 lb)02/19/2025 1:36 PM SUNVqpdth365.9 cm (5' 1 )02/19/2025 1:36 PM EDTBody Mass Index27.9602/19/2025 1:36 PM EDTdocumented in this encounter Functional Status * BPAnswerDate of ZmxyzolsfoOuuite894/ 1:36 PM Светлана Alvarado, RVT * Communicable [...] Plan of Treatment DateTypeDepartmentCare Team (Latest Contact Info)Dyzyiljjoym02/05/2025 11:00 AM ESTOffice Visit [facility] [address] [phone] [place] [address] [place] [address] 03/07/2025 11:30 AM ESTOffice Visit [facility] Cris [address] [address] [phone] [place] [address] [address] Department [place] [address] 09/14/2025 10:20 AM EDTOffice Visit [facility] [address] [place] [address] Harjeet Cheung MD [address] [facility] [address] [place] [address] documented as of this encounter Procedures Procedure NamePriorityDate/TimeAssociated DiagnosisCommentsTRANSTHORACIC ECHO (TTE) LHWJJVBCvztgpa33/20/2025 2:19 PM EDT Mitral valve insufficiency, unspecified etiology Left ventricular systolic dysfunction documented in this encounter Results * TRANSTHORACIC ECHO (TTE) LIMITED (02/19/2025 2:19 PM EDT)ComponentValueRef RangeTest MethodAnalysis TimePerformed AtPathologist SignatureLV Biplane EF62% SYNGOLVOT diam2.09cmSYNGOMV E/A ratio0.84SYNGOLA vol index A/L39.3ml/s6IPEGNWY EF43%SYNGOLVIDd4.24cmSYNGOLV A4C EF50.9SYNGOSpecimen (Source)Anatomical Location / LateralityCollection [...] Moderate to severe mitral valve regurgitation. [facility]ative [facility] 02/19/2025 4:37 PM EDT ?[facility] [address] [place] [address], [address], [place], [place] [address] ? TRANSTHORACIC ECHOCARDIOGRAM REPORT Patient Name: ? RENUKA ENGLE ? Reading Physician: ?[id number] Harjeet ?IbrahimMD, FACC Study Date: ? 02/19/2025 ?Ordering Provider: ?[id number] HARJEET M ?CHEUNG MRN/PID: ?[id number] ?Fellow: Accession#: ? [id number] ?Nurse: Date of /Age: ??1950 / 74 years Supervisor Doping: ?Светлана Annalee ?RDCS, RVT Gender Assigned at ??F ? Additional Staff: : Height: ? 154.94 cm ? Admit Date: Weight: ? 67.13 kg ?Admission Status: ? Outpatient BSA / BMI: ?1.66 m2 / 27.96 ? Department Location: ??[facility] ?kg/m2 ? Hui Blood Pressure: 116 /76 mmHg Study Type: ?TRANSTHORACIC ECHO (TTE) LIMITED Diagnosis/ICD: Nonrheumatic mitral (valve) insufficiency-I34.0; Other ill ? defined heart diseases-I51.89 Indication: ?Abnormal EKG-LBBB, HTN, Sepsis with Multiorgan Failure-10/2024, ? Overweight, CKD-Stage III CPT Codes: ? Echo Limited-56359 Study Detail: The following Echo studies were [...] (1.8-2.4cm) AORTA: Asc Ao Diam 2.89 cm [id number] Harjeet Cheung MD, FACC Electronically signed on 02/19/2025 at 4:37:04 PM Final Procedure Note Harjeet Cheung MD - 02/19/2025 [facility] [address] [facility], [address], [place] [address] TRANSTHORACIC ECHOCARDIOGRAM REPORT Patient Name: RENUKA Dey DILCIA Rodriguez Physician: [id number] Cheung MD,[facility] Study Date: 02/19/2025 Ordering Provider: [id number] KAITLYN CHEUNG MRN/PID: [id number] Fellow: Nurse: Date of /Age: 8 1950 / 74 years Supervisor Doping: Alberto RIZVI, RVT Gender Assigned at F Additional Staff: : Height: 154.94 cm Admit Date: Weight: 67.13 kg Admission Status: Outpatient BSA / BMI: 1.66 m2 / 27.96 Department Location: [facility] kg/m2 [place] Blood Pressure: 116 /76 mmHg Study Type: TRANSTHORACIC ECHO (TTE) LIMITED Diagnosis/ICD: Nonrheumatic mitral (valve) insufficiency-I34.0; Otherill defined heart diseases-I51.89 Indication: Abnormal EKG-LBBB, HTN, Sepsis with MultiorganFailure-10/2024, Overweight, CKD-Stage III CPT Codes: Echo Limited-08998 Study Detail: The following Echo studies were [...] (1.8-2.4cm) AORTA: Asc Ao Diam 2.89 cm [id number] Harjeet Cheung MD, FACC Electronically signed on [...] valve regurgitation. Authorizing ProviderResult TypeResult StatusHajessica Cheung [facility] ECHO PROCEDURESFinal ResultPerforming OrganizationAddressCity/State/ZIP CodePhone Number SYNGO documented in this encounter Visit Diagnoses Diagnosis Mitral valve insufficiency, unspecified etiology Left ventricular systolic dysfunction documented in this encounter Additional Health Concerns AssessmentNoted TimeA fall risk assessment has been completed for the patient 01/30/2025 9:25 AM EDTdocumented as of this encounter Care Teams Team MemberRelationshipSpecialtyStart DateEnd Date Mervin Chanel DO [address] [place] [address] PCP - GeneralInternal Medicine01/05/24documented as of this encounter
--- OUTSIDE RECORDS SUMMARY | 2025-02-28 14:46 | XMS_ITS | Encounter Summary ---
Author Organization [facility] Address [address] [address] Phone Care Team Providers Care Roll Tube Setter Name Role Phone Mervin Chanel Primary Care Provider [phone] Reason for Referral * Consultation (Routine) - AuthorizedSpecialtyDiagnoses / ProceduresReferred By ContactReferred To ContactCardiology Diagnoses Mitral valve insufficiency, unspecified etiology Left ventricular systolic dysfunction Bryce Cheung MD [address]03 [facility], [address] [address] Phone: tel: fax: Referral IDStatusReasonStart DateExpiration DateVisits RequestedVisits [id number] Specialty Services Required Reason for Visit * ReasonOnset PqeuPspvcsbwVlktavf99/21/2025 Encounter Details DateTypeDepartmentCare Team (Latest Contact Info)Faasvodqxac76/21/2025Results Follow-Up [facility] [address] [phone] Rissa Luna LPN Transthoracic Echo Limited Social History Tobacco UseTypesPacks/DayYears UsedDateSmoking Tobacco: NeverSmokeless Tobacco: NeverAlcohol UseStandard Drinks/WeekCommentsYes0 (1 standard drink = 0.6 oz pure alcohol)rarelyCommentsNoSex and Gender InformationValueDate RecordedSex Assigned at AqvugNnmvbl69/31/2023 2:42 PM EDTLegal IxbMostjz22/26/2022 2:47 PM ESTGender PxbuebklWgowsf65/31/2023 2:42 PM EDTSexual OrientationNot on file documented as of this encounter Miscellaneous Notes * Telephone Encounter - Ana Maria Quinones LPN - 02/20/2025 11:55 AM EDT ----- Message from Bryce Cheung MD sent at 02/20/2025 9:10 AM EDT ----- I would like to refer the patient to [facility] structural heart disease to assess need for mitral valve clip ----- Message ----- From: Interface, Syngo - Cardiology Results In Sent: 02/19/2025 4:37 PM EDT To: Bryce Cheung MD * Telephone Encounter - Rissa Luna LPN - 02/20/2025 11:47 AM EDT Result Communication Resulted Orders Transthoracic Echo Limited Result Value Ref Range LV Biplane EF 62 % LVOT diam 2.09 cm MV E/A ratio 0.84 LA vol index A/L 39.3 ml/m2 LV EF 43 % LVIDd 4.24 cm LV A4C EF 50.[address], [address] [place] [address] TRANSTHORACIC ECHOCARDIOGRAM REPORT Patient Name: RENUKA Rodriguez Physician: [id number] Cheung MD, [facility] Study Date: 02/19/2025 Ordering Provider: [id number] CHEUNG MRN/PID: [id number] Fellow: Nurse: Date of /Age: 8 1950 / 74 years Cap Sizer: Светлана Mantilla RDCS, RVT Gender Assigned at F Additional Staff: : Height: 154.94 cm Admit Date: Weight: 67.13 kg Admission Status: Outpatient BSA / BMI: 1.66 m2 / 27.96 Department Location: [facility] Heart kg/m2 [place] Blood Pressure: 116 /76 mmHg Study Type: TRANSTHORACIC ECHO (TTE) LIMITED Diagnosis/ICD: Nonrheumatic mitral (valve) insufficiency-I34.0; Other ill defined heart diseases-I51.89 Indication: Abnormal EKG-LBBB, HTN, Sepsis with Multiorgan Failure-10/2024, Overweight, CKD-Stage III CPT Codes: Echo Limited-03288 Study Detail: The following Echo studies were [...] (1.8-2.4cm) AORTA: Asc Ao Diam 2.89 cm [address]379 Bryce Cheung MD, [facility] Electronically signed on 02/19/2025 at 4:37:04 PM Final Impression CONCLUSIONS: 1. Left ventricular ejection fraction is mildly decreased by visual estimate at 40-45%. 2. Spectral Doppler shows a Grade I (impaired relaxation pattern) of left ventricular diastolic filling with normal left atrial filling pressure. 3. Septal motion suggest conduction abnormalities. 4. There is normal right ventricular global systolic function. 5. Moderate to severe mitral valve regurgitation. 11:47 AM Results were successfully communicated with the patient and they acknowledged their understanding. * Telephone Encounter - Rissa Luna LPN - 02/20/2025 11:47 AM EDT ----- Message from Bryce Cheung MD sent at 02/20/2025 9:10 AM EDT ----- I would like to refer the patient to [facility] heart disease to assess need for mitral valve clip ----- Message ----- From: Interface, Syngo - Cardiology Results In Sent: 02/19/2025 4:37 PM EDT To: Bryce Cheung MD documented in this encounter Plan of Treatment DateTypeDepartmentCare Team (Latest Contact Info)Yisirppkhgz20/05/2025 11:00 AM ESTOffice Visit [facility] [address] [place] [phone] [place] [address] [place] [phone] 03/07/2025 11:30 AM ESTOffice Visit [facility] [address] [phone] [place] [address] Department of Surgery-Cardiac [place] [phone] 09/14/2025 10:20 AM EDTOffice Visit [place] [address] [place] [address] Bryce Cheung MD [address]03 [facility], [address] [place] [address] NameTypePriorityAssociated DiagnosesOrder ScheduleReferral to Valve and Structural Heart ProgramOutpatient ReferralNon-Urgent Mitral valve insufficiency, unspecified etiology Left ventricular systolic dysfunction Expected: 02/20/2025 (Approximate), Expires: 02/20/2026documented as of this encounter Visit Diagnoses Diagnosis Mitral valve insufficiency, unspecified etiology Left ventricular systolic dysfunction documented in this encounter Additional Health Concerns AssessmentNoted TimeA fall risk assessment has been completed for the patient 01/30/2025 9:25 AM EDTdocumented as of this encounter Care Teams Team MemberRelationshipSpecialtyStart DateEnd Date Mervin Chanel DO [address] [place] [address] PCP - GeneralInternal Medicine01/05/24documented as of this encounter
--- OUTSIDE RECORDS SUMMARY | 2025-02-28 14:46 | XMS_ITS | Clinical Summary ---
Author Organization [facility] Address [address] [facility] [place] [address] Care Team Providers Care Finished Cloth Checker Name Role Phone Unavailable Primary Care Provider Unavailabl e Source Comments The following information is NOT included in Care Everywhere downloads:Psychiatric notes, ECG results, Cardiac Rehab notes, Pulmonary Function notes, data from [facility]CHOs (includes but not limited toPregnancy data,audiograms, eye exams, pre-surgical evaluation notes, well-child exam data).[facility] Social History Tobacco UseTypesPacks/DayYears UsedDateSmoking Tobacco: Never Assessed CommentsUnknownSex and Gender InformationValueDate RecordedSex Assigned at Not on fileLegal HgjEjriln25/21/2023 12:36 PM ESTGender IdentityNot on file Sexual OrientationNot on file Last Filed Vital Signs Vital SignReadingTime TakenCommentsBlood Vzwldrpd643/6511 6:00 AM EDT Szeql6604 6:00 AM EDTTemperature--Respiratory Rate--Oxygen Rdxdzbjxqe70% 03/06/2023 6:00 AM EDTInhaled Oxygen Concentration--Weight--Height--Body Mass Index-- Plan of Treatment Health MaintenanceDue DateLast VendEdwyebkwHhngkmfhyqp39/06/1950Hepatitis C Bglgrhva98/06/1968Tdap Gmbqiko4412/07/1967Hepatitis A (HAV) Vaccine (optional start 19+ years)12/06/19682415Zgxpnszumgb78/06/1990CRC Yiknypouq85/06/1995 Awfujsdggmt68/06/1995Cologuard (Stool DNA)1994FIT1994Pneumococcal Vaccine(s) (50+ yrs) (1 of 1 - PCV)12/07/1999Shingles (RZV) Vaccine (1 of 2) 12/07/1999Hepatitis B (HBV) Vaccine (optional start 60+ years)08/06/2010Bone Ppjzxlktyzhp61/06/2015nnual Wellness Visit (G0438)12/02/2015RSV vaccine (adult) (1 - 1-dose 75+ series)2024OVID-19 Vaccine (2024- season)2025 Influenza Vaccine (#1)2025Pap SmearDiscontinued Insurance
--- OUTSIDE RECORDS SUMMARY | 2025-02-28 14:46 | XMS_ITS | Encounter Summary ---
Author Organization [facility] Address [address] [place] [address] Phone Care Team Providers Care Boom Stick Man Name Role Phone Mervin Chanel Primary Care Provider [phone] Reason for Visit * ReasonOnset DateCommentsreminder lab work needed prior appt on 03-07-25 02/28/2025 Encounter Details DateTypeDepartmentCare Team (Latest Contact Info)Ohwevaiiapn55/29/2025Telephone [facility] [address] [place] [phone] Liliam Escalante RN reminder lab work needed prior appt on 03-07-25 Social History Tobacco UseTypesPacks/DayYears UsedDateSmoking Tobacco: NeverSmokeless Tobacco: NeverAlcohol UseStandard Drinks/WeekCommentsYes0 (1 standard drink = 0.6 oz pure alcohol)rarelyCommentsNoSex and Gender InformationValueDate RecordedSex Assigned at UqpgmWnwchx95/31/2023 2:42 PM EDTLegal HwcHkcqhx62/26/2022 2:47 PM ESTGender HuchjozrKwbyai66/31/2023 2:42 PM EDTSexual OrientationNot on file documented as of this encounter Miscellaneous Notes * Telephone Encounter - Liliam Escalante RN - 02/28/2025 9:19 AM EDT Called & notified pre-appointment lab work needed. She will go to [facility] today to have drawn. Requisition faxed on 02-26-25. documented in this encounter Plan of Treatment DateTypeDepartmentCare Team (Latest Contact Info)Mjxqlpvowgl84/05/2025 11:00 AM ESTOffice Visit [facility] [address] [facility] [address] [place] [phone] [place] [address] [place] [address] 03/07/2025 11:30 AM ESTOffice Visit [facility] [address] [facility] [address] [place] [phone] [place] [address] Department [place] [address] 09/14/2025 10:20 AM EDTOffice Visit [place] [address] [place] [address] Bryce Cheung MD 703 [facility] 2, [address] [place] [address] documented as of this encounter Visit Diagnoses Not on filedocumented in this encounter Additional Health Concerns AssessmentNoted TimeA fall risk assessment has been completed for the patient 01/30/2025 9:25 AM EDTdocumented as of this encounter Care Teams Team MemberRelationshipSpecialtyStart DateEnd Date Mervin Chanel, [address] [place] [address] PCP - GeneralInternal Medicine01/05/24documented as of this encounter
--- OUTSIDE RECORDS SUMMARY | 2025-02-28 14:46 | XMS_ITS | Encounter Summary ---
Author Organization [facility] Address [address] [place] [address] Phone Care Team Providers Care Vice President Mission Integration Name Role Phone Mervin Chanel Primary Care Provider [phone] Encounter Details DateTypeDepartmentCare Team (Latest Contact Info)Lcnarxlepff12/27/2025Orders Only [facility] [address] [place] [address] Liliam Escalante RN Nonrheumatic mitral valve regurgitation (Primary Dx) Social History Tobacco UseTypesPacks/DayYears UsedDateSmoking Tobacco: NeverSmokeless Tobacco: NeverAlcohol UseStandard Drinks/WeekCommentsYes0 (1 standard drink = 0.6 oz pure alcohol)rarelyCommentsNoSex and Gender InformationValueDate RecordedSex Assigned at DycvnWjalja36/31/2023 2:42 PM EDTLegal XopZbmhjg53/26/2022 2:47 PM ESTGender NklydbfdNkivmm40/31/2023 2:42 PM EDTSexual OrientationNot on file documented as of this encounter Plan of Treatment DateTypeDepartmentCare Team (Latest Contact Info)Drhfwktmxjh84/05/2025 11:00 AM ESTOffice Visit [facility] [address] [place] [address] [place] [address] [place] [address] [place] [address] 03/07/2025 11:30 AM ESTOffice Visit [facility] [place] [address] [place] [address] [place] [address] [place] [address] Department [place] [address] 09/14/2025 10:20 AM EDTOffice Visit [place] [address] [place] [address] Bryce Cheung MD 703 [facility] 2, [address] [place] [address] NameTypePriorityAssociated DiagnosesOrder ScheduleCBCLabRoutine Nonrheumatic mitral valve regurgitation Expected: 02/26/2025 (Approximate), Expires: 02/26/2026Renal Function PanelLab Routine Nonrheumatic mitral valve regurgitation Expected: 02/26/2025 (Approximate), Expires: 02/26/2026documented as of this encounter Visit Diagnoses Diagnosis Nonrheumatic mitral valve regurgitation- Primary documented in this encounter Additional Health Concerns AssessmentNoted TimeA fall risk assessment has been completed for the patient 01/30/2025 9:25 AM EDTdocumented as of this encounter Care Teams Team MemberRelationshipSpecialtyStart DateEnd Date Mervin Chanel, [address] [place] [address] PCP - GeneralInternal Medicine01/05/24documented as of this encounter
--- OUTSIDE RECORDS SUMMARY | 2025-02-28 14:46 | XMS_ITS | Encounter Summary ---
Author Organization [facility] Address [address] [place] [address] Phone Care Team Providers Care Bullet Casting Operator Name Role Phone Mervin Chanel Galo FENG Primary Care Provider [phone] Encounter Details DateTypeDepartmentCare Team (Latest Contact Info)Fhjpzupmjmk00/20/2025Travel Social History Tobacco UseTypesPacks/DayYears UsedDateSmoking Tobacco: NeverSmokeless Tobacco: NeverAlcohol UseStandard Drinks/WeekCommentsYes0 (1 standard drink = 0.6 oz pure alcohol)rarelyCommentsNoSex and Gender InformationValueDate RecordedSex Assigned at YgivoRmxdyz80/31/2023 2:42 PM EDTLegal WheXnvgkg24/26/2022 2:47 PM ESTGender DylbvlwpPxmszs90/31/2023 2:42 PM EDTSexual OrientationNot on file documented as of this encounter Functional Status * BPAnswerDate of KzuqdmytbcNpytay112/7602/19/2025 1:36 PM Светлана Alvarado, RVT * Communicable Disease ScreeningQuestionAnswerDate of AssessmentAuthorDo you have any of the following new or worsening symptoms?None of these02/19/2025 1:16 PM Jaqueline Garcia documented as of this encounter Plan of Treatment DateTypeDepartmentCare Team (Latest Contact Info)Fpbvyotvifj59/05/2025 11:00 AM ESTOffice Visit [facility] [address] [facility] [address] [place] [address] [place] [address] [place] [address] 03/07/2025 11:30 AM ESTOffice Visit [facility] [address] [facility] [address] [place] [address] [place] [address] Department [place] [address] 09/14/2025 10:20 AM EDTOffice Visit [place] [address] [place] [address] Bryce Cheung MD 703 [facility] 2, [address] [place] [address] documented as of this encounter Visit Diagnoses Not on filedocumented in this encounter Additional Health Concerns AssessmentNoted TimeA fall risk assessment has been completed for the patient 01/30/2025 9:25 AM EDTdocumented as of this encounter Care Teams Team MemberRelationshipSpecialtyStart DateEnd Date Mervin Chanel, [address] [place] [address] PCP - GeneralInternal Medicine01/05/24documented as of this encounter
--- OUTSIDE RECORDS SUMMARY | 2025-02-28 14:46 | XMS_ITS | Encounter Summary ---
Author Organization [facility] Address [address] [place] [address] Phone Care Team Providers Care Golf Sales Associate Name Role Phone Mervin Chanel Primary Care Provider [phone] Reason for Visit * ReasonOnset DateCommentsreturn call02/23/2025 Encounter Details DateTypeDepartmentCare Team (Latest Contact Info)Qswihajnbxa57/24/2025Telephone [facility] [place] [address] [place] [address] [place] [phone] Liliam Escalante RN return call Social History Tobacco UseTypesPacks/DayYears UsedDateSmoking Tobacco: NeverSmokeless Tobacco: NeverAlcohol UseStandard Drinks/WeekCommentsYes0 (1 standard drink = 0.6 oz pure alcohol)rarelyCommentsNoSex and Gender InformationValueDate RecordedSex Assigned at PffsoYbfyuf21/31/2023 2:42 PM EDTLegal PszCbtfcc35/26/2022 2:47 PM ESTGender JujryjqfTsxmtz57/31/2023 2:42 PM EDTSexual OrientationNot on file documented as of this encounter Miscellaneous Notes * Telephone Encounter - Liliam Escalante RN - 02/23/2025 11:48 AM EDT Called & appointments requested. documented in this encounter Plan of Treatment DateTypeDepartmentCare Team (Latest Contact Info)Tlhzqhrtcpr91/05/2025 11:00 AM ESTOffice Visit [facility] [address] [facility] [address] [place] [address] [place] [address] [place] [address] 03/07/2025 11:30 AM ESTOffice Visit [facility] [address] [facility] [address] [place] [address] [place] [address] Department [place] [address] 09/14/2025 10:20 AM EDTOffice Visit [place] [address] [place] [address] Bryce Cheung MD 703 [facility], [address] [place] [address] documented as of this encounter Visit Diagnoses Not on filedocumented in this encounter Additional Health Concerns AssessmentNoted TimeA fall risk assessment has been completed for the patient 01/30/2025 9:25 AM EDTdocumented as of this encounter Care Teams Team MemberRelationshipSpecialtyStart DateEnd Date Mervin Chanel DO [address] [place] [address] PCP - GeneralInternal Medicine01/05/24documented as of this encounter
--- OUTSIDE RECORDS SUMMARY | 2025-02-28 14:46 | XMS_ITS | Encounter Summary ---
Author Organization [facility] Address [address] [place] [address] Phone Care Team Providers Care Placement Assistant Name Role Phone Mervin Chanel Primary Care Provider [phone] Reason for Visit * ReasonOnset DateCommentsStructural Heart bimffpcj65/23/2025 Encounter Details DateTypeDepartmentCare Team (Latest Contact Info)Eqiyjwatfgm90/23/2025Telephone [facility] [address] [place] [address] [place] [phone] Liliam Escalante RN Structural Heart referral Social History Tobacco UseTypesPacks/DayYears UsedDateSmoking Tobacco: NeverSmokeless Tobacco: NeverAlcohol UseStandard Drinks/WeekCommentsYes0 (1 standard drink = 0.6 oz pure alcohol)rarelyCommentsNoSex and Gender InformationValueDate RecordedSex Assigned at VsbtwNhkout99/31/2023 2:42 PM EDTLegal UxiJnzkrm90/26/2022 2:47 PM ESTGender JdlwhpevBjonok93/31/2023 2:42 PM EDTSexual OrientationNot on file documented as of this encounter Miscellaneous Notes * Telephone Encounter - Liliam Escalante RN - 02/22/2025 1:41 PM EDT Called & left message to call office back documented in this encounter Plan of Treatment DateTypeDepartmentCare Team (Latest Contact Info)Nrbsiupqeng33/05/2025 11:00 AM ESTOffice Visit [facility] [place] [address] [facility] [address] [place] [address] [place] [address] [place] [address] 03/07/2025 11:30 AM ESTOffice Visit [facility] [address] [facility] [address] [place] [address] [place] [address] Department of Surgery-Cardiac [place], [place] [phone] 09/14/2025 10:20 AM EDTOffice Visit [place] [address] [place] [address] Bryce Cheung MD 703 [facility] 2, [address] [place] [address] documented as of this encounter Visit Diagnoses Not on filedocumented in this encounter Additional Health Concerns AssessmentNoted TimeA fall risk assessment has been completed for the patient 01/30/2025 9:25 AM EDTdocumented as of this encounter Care Teams Team MemberRelationshipSpecialtyStart DateEnd Date Mervin Chanel, [address] [place] [address] PCP - GeneralInternal Medicine01/05/24documented as of this encounter
--- OUTSIDE RECORDS SUMMARY | 2025-02-28 14:46 | XMS_ITS | Clinical Summary ---
Author Organization [facility] Address [address] [place] [address] Phone Care Team Providers Care Trouble Lineman Name Role Phone Mervin Chnael DO Primary Care Provider [phone] Allergies Active AllergyReactionsCriticalityNoted DateCommentsAtorvastatinHives,RashLow 02/28/20239653CiwzfitfumeDqtjlNkwwtn35/29/0089Xrhvjde-Mjo-Zwl Reductase Inhibitors KnzkwTxgqyr16/29/2023 Medications MedicationSigDispense QuantityRefillsLast FilledStart DateEnd DateStatus baclofen (Lioresal) 20 mg tablet Take 1 tablet (20 mg) by mouth once daily as needed.Active fluticasone (Flonase) 50 mcg/actuation nasal spray As directedActive loratadine (Claritin) 10 mg tablet Take 1 tablet (10 mg) by mouth once daily.Active omeprazole (PriLOSEC) [address] capsule Take 1 capsule (20 mg) by mouth once daily in the morning. Take before meals. Active traMADol (Ultram) 50 mg tablet Take 1 tablet (50 mg) by mouth 2 times a day as needed.Active aspirin 81 mg EC tablet Take 1 tablet (81 mg) by mouth once daily.Active metoprolol succinate XL (Toprol-XL) 25 mg 24 hr tablet Take 1 tablet (25 mg) by mouth once daily. Do not crush or chew.Active lisinopril 2.5 mg tablet Take 1 tablet (2.5 mg) by mouth once daily.Active gabapentin (Neurontin) 300 mg capsule Take 1 capsule (300 mg) by mouth once daily. 300mg BID, and 600mg at bedtime Active furosemide (Lasix) 20 mg tablet Take 1 tablet (20 mg) by mouth 2 times a day as needed.Active dapagliflozin propanediol (Farxiga) 10 mg tablet Take 1 tablet (10 mg) by mouth once daily.Active torsemide (Demadex) 20 mg tablet Take 1 tablet (20 mg) by mouth every other day.01/30/2025Discontinued(Therapy completed) Active Problems ProblemNoted DateDiagnosed DateNever smoked yyfpeey5507/15/2023Left ventricular systolic tngletpgcbh67/16/2703Uduxt82/31/2894Xhbbzq53/29/2023Essential zyhyigvqnnoy31/29/2023LBBB (left bundle branch block)02/28/2023Mitral frvhjvsfmobft50/29/2023hest pain02/28/2023MI 28.0-28.9,adult02/28/2023 Encounters DateTypeDepartmentCare HproZdcpopbvtiu49/29/2025Telephone [facility] [place] [address] [place] [address] [place] [address] Liliam Escalante RN reminder lab work needed prior appt on 03-07-2510Orders Only [facility] [place] [address] [place] [address] Liliam Escalante RN Nonrheumatic mitral valve regurgitation (Primary Dx)02/23/2025Telephone [facility] [place] [address] [place] [address] [place] [address] Liliam Escalante RN return call02/22/2025Telephone [facility] [address] [place] [address] [place] [address] Liliam Escalante RN Structural Heart ywtqxccx36/21/2025Results Follow-Up [facility] [address] [address] Rissa Luna LPN Transthoracic Echo Gjpawap3902/19/2025 1:16 PM EDT - 02/19/2025 11:59 PM EDT Hospital Encounter [facility] [address] [facility] [address] [place] [address] Mitral valve insufficiency, unspecified etiology; Left ventricular systolic dysfunction Discharge Disposition: Home02/19/20258646Dgeqwd62/30/2025 9:30 AM EDTOffice Visit [place] [address] [place] [address] Harjeet Cheung MD Mitral valve insufficiency, unspecified etiology (Primary Dx); Left ventricular systolic dysfunction; Essential hypertension; LBBB (left bundle branch block); BMI 28.0-28.9,adult; Never smoked tobacco; Stage 3a chronic kidney disease (Multi) Discharge Disposition: Home01/30/20251519Wftczl02/11/2025Scanned Document [facility] [address] [place] [address] Scanning, Generic Provider 12/01/2024Scanned Document [facility] [address] [place] [address] Scanning, Generic Provider from Last 3 Months Immunizations ImmunizationAdministration DatesNext DueFlu vaccine (IIV4), preservative free *Check age/dose*02/17/2019Flu vaccine, quadrivalent, high-dose, preservative free, age 65y+ (FLUZONE)01/28/2021Flu vaccine, trivalent, preservative free, HIGH-DOSE, age 65y+ (Fluzone)01/29/2020,02/17/2018,02/02/2017,05/03/2010, 05/03/2009Influenza, Seasonal, Quadrivalent, Jtbhutqfgk32/22/2023,01/14/2022 Influenza, Wmhebefuipt45/01/2017,12/02/2015,01/31/2015,01/31/2014,05/03/2006 Influenza, injectable, wwdwfqfaqjlq06/01/2016Moderna SARS-CoV-2 Vaccination 3Pfizer COVID-19 vaccine, 12 years and older, (30mcg/0.3mL) (Comirnaty) 3Pfizer COVID-19 vaccine, bivalent, age 12 years and older (30 mcg/0.3 mL)2Pfizer Vargas Cap LJBQ-TzB-813/28/2022Pneumococcal conjugate vaccine, 13-valent (PREVNAR 13)05/11/2022,12/30/2016Pneumococcal polysaccharide vaccine, 23-valent, age 2 years and older (PNEUMOVAX 23)07/20/2020,02/08/2017,05/03/2015, 05/03/2013,01/31/2013Zoster vaccine, recombinant, adult (SHINGRIX)05/27/2020, 02/28/2020 Family History Medical HistoryRelationNameCommentsNo Known ProblemsFatherNo Known Problems MotherRelationNameStatusCommentsFatherMother Social History Tobacco UseTypesPacks/DayYears UsedDateSmoking Tobacco: NeverSmokeless Tobacco: Never Tobacco Cessation:Counseling Given: Not Answered Alcohol UseStandard Drinks/WeekCommentsYes0 (1 standard drink = 0.6 oz pure alcohol)rarelyCommentsNoSex and Gender InformationValueDate RecordedSex Assigned at EddnaMondop92/31/2023 2:42 PM EDTLegal XlaSxiuqk70/26/2022 2:47 PM ESTGender TqpgxbykXdxmtf55/31/2023 2:42 PM EDTSexual OrientationNot on file Last Filed Vital Signs Vital SignReadingTime TakenCommentsBlood Ekadrwfm980/7610 1:36 PM EDT Aabaa2531 9:30 AM EDTTemperature--Respiratory Rate--Oxygen Saturation-- Inhaled Oxygen Concentration--Rdyplg42.1 kg (148 lb)02/19/2025 1:36 PM EDTHeight 154.9 cm (5' 1 )02/19/2025 1:36 PM EDTBody Mass Index27.9602/19/2025 1:36 PM EDT Plan of Treatment DateTypeDepartmentCare Team (Latest Contact Info)Vgonxoqtcej68/05/2025 11:00 AM ESTOffice Visit [facility] [address] [place] [address] [place] [address] [place] [address] [place] [address] 03/07/2025 11:30 AM ESTOffice Visit [facility] [address] [place] [address] [place] [address] Department [place] [address] 09/14/2025 10:20 AM EDTOffice Visit [address] [place] [address] Harjeet Cheung MD [address] [facility] [place] [address] Health MaintenanceDue DateLast DoneCommentsCT Ljihmbasyvhs88/06/1950Colonoscopy 1950Colorectal Cancer Cdujsfhjs11/06/1950FIT-DNA (Cologuard)1950FIT 1950Lipid Panel1950 5523Xrkodzhrmwdsf02/06/1950MMR Vaccines (1 of 1 - Standard series)1Diabetes Bghscehyw66/06/1968Hepatitis C Screening 12/07/1967CKD: Urine Protein Hfoioahac70/06/1969Creatinine Level07/22/2008 07/23/2007Potassium LevelDTaP/Tdap/Td Vaccines (1 - Tdap) Medicare Annual Wellness Visit (AWV)/10/2022, 01/14/2022, 11/20/2020, Additional history existsRSV High Risk: (Elderly (60+) or Population) (1 - 1-dose 75+ series)5COVID-19 Vaccine ( - 2024- season)5001/22/2023, 05/10/2022, 02/25/2022, Additional history existsBone Density Scan5001/28/2023, 12/09/2020, 11/09/2018, Additional history qhggfjCcqluadmvawilj62/20/202610/20/2025, 11/13/2024, 01/18/2024, Additional history existsZoster BaxjuxktKxbxmyvbz19/25/2021, 02/28/2020, 01/31/2014Pneumococcal VheorjdLicphmjqo55/09/2023, 07/20/2020, 02/08/2017, Additional history existsInfluenza HyxpkshYmjypmqan61/15/2025, 02/25/2024, 01/22/2023, Additional history existsHIB VaccinesAged OutNo longer eligible based on patient's age to complete this topicHPV VaccinesAged OutNo longer eligible based on patient's age to complete this topicHepatitis A VaccinesAged OutNo longer eligible based on patient's age to complete this topicHepatitis B VaccinesAged OutNo longer eligible based on patient's age to complete this topic IPV VaccinesAged OutNo longer eligible based on patient's age to complete this topicMeningococcal VaccineAged OutNo longer eligible based on patient's age to complete this topicRotavirus VaccinesAged OutNo longer eligible based on patient's age to complete this topic Procedures Procedure NamePriorityDate/TimeAssociated DiagnosisCommentsTRANSTHORACIC ECHO (TTE) CEBLITMHwzoqww00/20/2025 2:19 PM EDT Mitral valve insufficiency, unspecified etiology Left ventricular systolic dysfunction from Last 3 Months Results * TRANSTHORACIC ECHO (TTE) LIMITED (02/19/2025 2:19 PM EDT)ComponentValueRef RangeTest MethodAnalysis TimePerformed AtPathologist SignatureLV Biplane EF62% SYNGOLVOT diam2.09cmSYNGOMV E/A ratio0.84SYNGOLA vol index A/L39.3ml/s5ZWFBZVV EF43%SYNGOLVIDd4.24cmSYNGOLV A4C EF50.9SYNGOSpecimen (Source)Anatomical Location / LateralityCollection [...] Moderate to severe mitral valve regurgitation. Narrative SYNGO - 02/19/2025 4:37 PM EDT ?[address], [place] [address] ? TRANSTHORACIC ECHOCARDIOGRAM REPORT Patient Name: ? RENUKA A DILCIA ? Reading Physician: ?[id number] Harjeet ?JonatanIN, [facility] Study Date: ? 02/19/2025 ?Ordering Provider: ?[id number] HARJEET Anglin ?JONATAN MRN/PID: ?[id number] ?Fellow: Accession#: ? [id number] ?Nurse: Date of /Age: ??1950 / 74 years Gas Distribution Supervisor: ?Светлана Mantilla ?RDCS, RVT Gender Assigned at ??F ? Additional Staff: : Height: ? 154.94 cm ? Admit Date: Weight: ? 67.13 kg ?Admission Status: ? Outpatient BSA / BMI: ?1.66 m2 / 27.96 ? Department Location: ??[facility] ?kg/m2 ? [place] Blood Pressure: 116 /76 mmHg Study Type: ?TRANSTHORACIC ECHO (TTE) LIMITED Diagnosis/ICD: Nonrheumatic mitral (valve) insufficiency-I34.0; Other ill ? defined heart diseases-I51.89 Indication: ?Abnormal EKG-LBBB, HTN, Sepsis with Multiorgan Failure-10/2024, ? Overweight, CKD-Stage III CPT Codes: ? Echo Limited-93224 Study Detail: The following Echo studies were [...] (1.8-2.4cm) AORTA: Asc Ao Diam 2.89 cm [id number] Harejet Cheung MD, [facility] Electronically signed on 02/19/2025 at 4:37:04 PM Final Procedure Note Harjeet Cheung MD - 02/19/[address], [address] [place] [address] TRANSTHORACIC ECHOCARDIOGRAM REPORT Patient Name: RENUKACelia ENGLE Reading Physician: [id number] Cheung MD,[facility] Study Date: 02/19/2025 Ordering Provider: [id number] KAITLYN CHEUNG MRN/PID: [id number] Fellow: Nurse: Date of /Age: 8 1950 / 74 years Gas Distribution Supervisor: Alberto RIZVI RVT Gender Assigned at F Additional Staff: : Height: 154.94 cm Admit Date: Weight: 67.13 kg Admission Status: Outpatient BSA / BMI: 1.66 m2 / 27.96 [facility] [place] Blood Pressure: 116 /76 mmHg Study Type: TRANSTHORACIC ECHO (TTE) LIMITED Diagnosis/ICD: Nonrheumatic mitral (valve) insufficiency-I34.0; Otherill defined heart diseases-I51.89 Indication: Abnormal EKG-LBBB, HTN, Sepsis with MultiorganFailure-10/2024, Overweight, CKD-Stage III CPT Codes: Echo Limited-72504 Study Detail: The following Echo studies were [...] (1.8-2.4cm) AORTA: Asc Ao Diam 2.89 cm [id number] Harjeet Cheung MD, FACC Electronically signed on [...] severe mitral valve regurgitation. Authorizing ProviderResult TypeResult StatusHassantonio Cheung [facility] ECHO PROCEDURESFinal ResultPerforming OrganizationAddressCity/State/ZIP CodePhone Number SYNGO from Last 3 Months Insurance Care Teams Team MemberRelationshipSpecialtyStart DateEnd Mervin Chanel DO [address] [place] [address] PCP - GeneralInternal Medicine01/05/24
--- OUTSIDE RECORDS SUMMARY | 2025-02-28 14:47 | XMS_ITS | Clinical Summary ---
Author Organization [facility] Address [address] [facility] [place] [address] Care Team Providers Care Customer Support Representative Name Role Phone Mervin Chanel Primary Care Provider [phone] Allergies Active AllergyReactionsCriticalityNoted DateCommentsAtorvastatinHives,RashLow 12/28/20225004Eoxkvghgicem83/03/2025 Other Reaction(s): Unknown Reaction Mxequpuolit51/28/2023 Other Reaction(s): Unknown Medications MedicationSigDispense QuantityRefillsLast FilledStart [...] mg) by mouth at bedtime 90 tablet 311//120665/5Active traZODone (Desyrel) 50 MG tablet 03/28/2024ctive omeprazole [...] 30 tablet 11010/23/ctive Active Problems ProblemNoted DateDiagnosed FunoCeufp-zp-ayzskly kidney vpmlnn2810/23/2024llergic /23/5108Iyxbfr52/23/2025rthritis of left hip10/23/2024arpal tunnel syndrome of left wrist10/23/2024hemotherapy-induced peripheral neuropathy 10/23/2024Hip pain10/23/2024hronic HFrEF (heart failure with reduced ejection fraction)10/23/2024hronic pain10/23/2024hronic ubhpjigntnrt67/23/2025hronic venous insufficiency of lower xakzqzygz71/23/8729Lzgbjpnfn07/23/2025Degenerative arthritis of left foot10/23/20241930Jwgybmeu28/23/2025Difficulty mxxybpa0410/23/2024 Drug-induced poebfeqfjmuujs34/23/8590Fgrn95/23/2025History of lumbar fusion 10/23/2024History of total left knee oddnjjwwjrx06/23/7916Dwndosxkkug36/23/2025 Complete tear of left rotator cuff10/23/2024Left foot pain10/23/2024Lumbar stenosis without neurogenic ihxobxswttlf25/23/2025Mild eldicfacpe25/23/2025Nasal polyp, zoynvbolj35/23/2025Neck pain10/23/2024Nocturnal leg vhsbmn6210/23/2024 Orthostatic fuppzhitqnl69/23/1836Eykyznvopymoww92/23/8351Vlmnxdkgqtii46/23/2025 Other low back pain10/23/2024Pain of right sacroiliac joint10/23/2024Pes anserinus bursitis of left knee10/23/2024Postoperative pain10/23/2024Internal derangement of left /23/2025Internal derangement of right shoulder 10/23/20248011Oueryrxokoysjfzomq95/23/2025S/P left fbjvjpeear70/23/2025Inflammation of right sacroiliac joint10/23/20240116Bqjzzegpn45/23/2025ervical spondylosis with luzuebmzwmrja07/23/2025Lumbar adjacent segment disease with spondylolisthesis 10/23/2024Lumbar agfchkoqfud18/23/2025Spondylolisthesis, lumbar wlrlhs1610/23/2024 Tinnitus of both ears10/23/2024Unspecified rotator cuff tear or rupture of right shoulder, not specified as /23/2025Unsteady gait when walking 10/23/2024ilateral carpal tunnel csjotdnc87/23/2025Never smoked tobacco 07/15/2023Keratoconjunctivitis sicca of both eyes not specified as Sjogren's 06/09/2023Left ventricular systolic iqwdqbvwidl15/16/4363Dslpr94/31/2023MI 28.0-28.9,adult02/28/20239073Qqnkgo29/29/2023hest pain02/28/2023Essential jfnudtgamdew45/29/2023Left bundle branch block (LBBB)02/28/2023Mitral mtzonjywrillb92/29/2023rimary open angle glaucoma (POAG) of both eyes, mild stage02/26/2023CO (posterior capsular opacification), szymmbksl98/27/2023 Obesity, Class I, BMI 30-34.9006/18/2020hronic kidney olljxrd4806/03/2020GERD (gastroesophageal reflux disease)06/03/2020History of breast mkxdjn3510/09/2014 Idiopathic progressive wrjdgerrtx41/28/2012Malignant neoplasm of female breast 06/15/2011nxiety state11/16/2007symptomatic varicose veins11/16/2007enign hypertensive heart disease without congestive heart nyvtdxo4511/16/2007Generalized sxocuyfqxacvmn02/16/2008Irritable bowel rekphfwr82/16/2008Pure xcchwqlxtpvpqcsfdujq08/16/2008Syncope and sxrwcdaw73/16/2008 Resolved Problems ProblemNoted DateDiagnosed DateResolved DateDry eyes/11/2023 Encounters DateTypeDepartmentCare BfrsHbgxpxhwqpo99/13/2025 2:50 PM EDTAncillary Procedure [facility] [address] [place] [address] 02/12/2025 2:45 PM EDTOffice Visit [facility] [address] [place] [address] Dean Ren PA Acute pain of right shoulder (Primary Dx); Rotator cuff arthropathy of right shoulder; Subacromial impingement of right /13/2025amboo flowsheet [facility] [address] [place] [address] Dean Ren PA 02/12/2025Travelfrom Last 3 Months Immunizations ImmunizationAdministration DatesNext DueInfluenza, High Dose Seasonal, Preservative Free01/29/2020,02/17/2018,02/02/2017Influenza, High-dose Seasonal, Quadrivalent, Preservative Free01/28/2021,01/29/2020Influenza, Seasonal, Quadrivalent, Deckbayart63/14/2022Influenza, Phncacfeqsl81/25/2012Influenza, injectable, bnxmewfduhed03/01/2016Influenza, injectable, quadrivalent, preservative free01/14/2022,02/01/2020,02/17/2019,06/09/2017,02/16/2017, 02/10/2017,05/05/2016,04/02/2016Influenza, seasonal, dsfijkyihp14/01/2022Moderna SARS-CoV-2 Ywaepjcipbt59/08/2023Pneumococcal Conjugate PCV 13005/11/2022, 12/30/2016Pneumococcal Polysaccharide UVLF3666/,02/08/2017,05/03/2015, 05/03/2013,01/31/2013,06/27/20111791OOFT-QQF-4 (COVID-19) vaccine, mRNA, spike protein, LNP, bivalent, preservative free, 30 mcg/0.3 mLdose, nicky-sucrose akighcbnocr29/26/2022Zoster, Rtbskbjdbhs43/25/2021,02/28/2020Zoster, live 01/31/2014 Family History Medical HistoryRelationNameCommentsLeukemiaBrotherCancerFatherClement Pink Testicular cancerFatherClement BarnesBreast cancerMotherJosephine RedingerCancer MotherJosephine RedingerGlaucomaMotherJosephine RedingerHearing lossMother Alejandra RedingerRelationNameStatusCommentsBrotherFatherClement BarnesDeceased MotherJosephine RedingerAlive Social History Tobacco UseTypesPacks/DayYears UsedDateSmoking Tobacco: NeverSmokeless Tobacco: Never Tobacco Cessation:Counseling Given: Not Answered Alcohol UseStandard Drinks/WeekCommentsYes1 (1 standard drink = 0.6 oz pure alcohol)caffeine intake: 2-3 cups per day of diet cokeCommentsUnknownSex and Gender InformationValueDate RecordedSex Assigned at BirthNot on fileLegal NcuSlmxyx99/15/2023 7:03 PM EDTGender IdentityNot on fileSexual OrientationNot on file Last Filed Vital Signs Vital SignReadingTime TakenCommentsBlood Wfzyrtgi209/6406 11:00 AM EDT Pulse--Temperature--Respiratory Rate--Oxygen Saturation--Inhaled Oxygen Concentration--Mteowm40.8 kg (156 lb)10/23/2024 11:00 AM RWYAewded976.5 cm (5' 2 )10/23/2024 11:00 AM EDTBody Mass Index28.5306 11:00 AM EDT Plan of Treatment DateTypeDepartmentCare Team (Latest Contact Info)Ptsiljpivze63/03/2025 2:15 PM ESTOffice Visit [facility] [address] [place] [address] Nba Malhotra, DO [address] [place] [address] 03/19/2025 3:15 PM ESTProcedure Visit [facility] [address] [place] [address] Wilfrid Olson, DPM [address] [facility] [place], [place] [address] Health MaintenanceDue DateLast DoneCommentsCT Ntsrblqnmiwl29/06/1950Colonoscopy 1950Colorectal Cancer Rfnprfzpf86/06/1950FIT-DNA1949FIT1950 FOBT1950 3357Tbeprlyvbxnjq03/06/1950Pneumococcal Vaccine: 65+ YearsCompleted 05/11/2022, 07/20/2020, 02/08/2017, Additional history existsInfluenza Vaccine Xobwcksvf21/15/2025, 02/25/2024, 01/22/2023, Additional history exists Procedures Procedure NamePriorityDate/TimeAssociated DiagnosisCommentsXR SHOULDER 2+ VIEWS XBIBRYkhcomj30/13/2025 2:47 PM EDT Acute pain of right [...] Final Result from Last 3 [place] [address] [place] [address] Care Teams Team MemberRelationshipSpecialtyStart DateEnd Date Mervin Chanel DO [address] [facility] [place] [address] PCP - GeneralInternal Medicine09/30/22
--- OUTSIDE RECORDS SUMMARY | 2025-02-28 14:47 | XMS_ITS ---
Author Organization [facility] Address [address] [place] [address] Care Team Providers Care Solution Strategist Name Role Phone Mervin Chanel Primary Care Provider [phone] Active Problems ProblemNoted DateDiagnosed DateObesity, Class I, BMI 30-34.90/GERD (gastroesophageal reflux disease)06/03/2020 Assessment & Plan (06/03/2020 12:54 PM EST): Assessment: on Prilosec CKD (chronic kidney disease)06/03/2020 Assessment & Plan (06/03/2020 12:56 PM EST): Assessment: per care everywhere. Did have a drop in GFR last fall that improved upon recheck. Will have pre-op labs ordered by surgeon. History of breast pgnwhr7310/09/2014Neuropathy due to chemotherapeutic drug 03/30/2012 Assessment & Plan (06/03/2020 12:54 PM EST): Assessment: on Gabapentin tid Breast oefhiu6803/30/2012 Cancer Staging: Clinical: Unsigned Pathologic:ER -, DC - , HER2 -(T2, N2) - Unsigned Breast cancer, left breastHypercholesteremiaHypertension Assessment & Plan (06/03/2020 12:53 PM EST): Assessment: on Coreg and hctz. BP today 136/90 OsteoarthritisBundle branch block, left Assessment & Plan (06/03/2020 12:54 PM EST): Assessment: chronic. [facility] Mild depressionS/P left mastectomy Current Treatment and Therapy Plans No current plan information found. Past Treatment and Therapy Plans Plan NameStart DateDiscontinue DateTreatment MedicationsDiscontinue ReasonPlan ProviderCyclesCENTRAL LINE FLUSH - ONE TIME02/17/2012No medications scheduled. Treatment Hilda White, WINDOWS SUPPORT ENGINEER.CNP1 of 2 cycles started Resolved Problems ProblemNoted DateDiagnosed DateResolved DateRectal tumor/
--- OUTSIDE RECORDS SUMMARY | 2025-02-28 14:47 | XMS_ITS | Clinical Summary ---
Author Organization [facility] Address [address] [place] [id number] Care Team Providers Care Pododermatologist Name Role Phone DaríoMervin Galo FENG Primary Care Provider [phone] Allergies Active AllergyReactionsCriticalityNoted DateCommentsAtorvastatin CalciumItching Vmaesk5503/05/20112462GtrrbkkyyucNzsygDzeu14/03/2011 Medications MedicationSigDispense QuantityRefillsLast FilledStart DateEnd DateStatus fluticasone [...] labs ordered by surgeon. History of breast kqscak7410/09/2014Neuropathy due to chemotherapeutic drug 03/30/2012 Assessment & Plan (06/03/2020 12:54 PM EST): Assessment: on Gabapentin tid Breast cpnfyi4503/30/2012 Cancer Staging: Clinical: Unsigned Pathologic:ER -, VA - , HER2 -(T2, N2) - Unsigned Breast cancer, left breastHypercholesteremiaHypertension Assessment & Plan (06/03/2020 12:53 PM EST): Assessment: on Coreg and hctz. BP today 136/90 OsteoarthritisBundle branch block, left Assessment & Plan (06/03/2020 12:54 PM EST): Assessment: chronic. [facility] Mild depressionS/P left mastectomy Resolved Problems ProblemNoted [...] (AFLURIA, FLULAVAL, FLUZONE)04/02/2016influenza (LAIV) vaccine, nasal, unspecified agzugvlaufr88/14/2022,01/31/2020,02/02/2019,05/05/2016influenza (aIIV4) vaccine, age 65+ yr, quadrivalent, PF (FLUAD QUAD)01/22/2023,01/14/2022influenza vaccine, unspecified vsdgyjupncr81/25/2012pneumococcal conjugate (PCV13) vaccine, 13 valent (PREVNAR 13)05/11/2022,12/30/2016,09/16/2015pneumococcal [...] = 0.6 oz pure alcohol)very seldomPHQ-2AnswerDate RecordedPHQ-2 ekoaw6494Area Deprivation IndexAnswerDate RecordedNational Score (1-100), lower number is lower akpe081305/18/2023State Score (1-10), lower number is lower syeh67605/18/2023 Data from: https://www.neighborhoodatlas.[facility].edu/. Last address used for m[address] [facility]4CommentsNoSex and Gender InformationValueDate RecordedSex Assigned at BirthNot on fileLegal SexFemale 04/03/2012 9:57 AM ESTGender IdentityNot on fileSexual OrientationNot on file Last Filed Vital Signs Vital SignReadingTime TakenCommentsBlood Pkdqzucz628/5704 11:04 AM EDT Cezpp9809 11:04 AM WMBWtdxlhmevjs60.3 ??C (97.4 ??F)08/21/2024 11:04 AM EDTRespiratory Hdit077808/21/2024 11:04 AM EDTOxygen Myozhnocca47%08/21/2024 11:04 AM EDTInhaled Oxygen Concentration--Swyred61.7 kg (164 lb 10.9 oz)08/21/2024 11:04 AM PEUGxpxwv341.5 cm (5' 2.01 )06/22/2023 1:28 PM ESTBody Mass Index30.11 06/22/2023 1:28 PM EST Plan of Treatment Health MaintenanceDue DateLast DoneCommentsAnnual PCP Team Chronic Disease Visit 12/07/1967Anxiety Vjlrhruvb16/06/1968Hepatitis C Uxcmupwfb60/06/1968CT Qabjuaonqmsl26/06/1995Cologuard (FIT-DNA)12/06/19946524Nblzmpgryql03/06/1995 Colorectal Cancer Rbsgjbdkc69/06/1995Fecal Occult Blood1994Lipid Screening 12/06/19947837Ztapbvhzrgbhr14/06/1995DTaP,Tdap,Td Vaccine (1 - Tdap)02/22/2014 02/21/2014Medicare Annual Wellness Visit12/01/2014Bone Density Screening 2014dvance Directive Fnzynrjluf22/01/2025RSV Vaccine (1 - 1-dose 75+ series)2024ovid-19 Vaccine ( season)5001/22/2023, 05/10/2022, 02/25/2022, Additional history existsInfluenza Vaccine (#1) 51, 01/22/2023, 01/14/2022, Additional history exists Hemoglobin/Dxtzsxmxnn49/21/020469/, 06/22/2023, 05/19/2022, Additional history existsSerum Nmzykwtumf24/21/198722/, 06/22/2023, 05/19/2022, Additional history existsDiabetes Yhmybfbmp04/21/994997/, 06/22/2023, 05/19/2022, Additional history existsShingrix UtmejrmViwisqwof75/25/2021, 05/27/2020, 02/28/2020, Additional history existsPneumococcal Vaccine: 50+ Vrdjmkgzj18/09/2023, 07/20/2020, 02/08/2017, Additional history exists Medical Devices ImplantedTypeAreaManufacturerDevice [facility] Expiration DateModel / Serial / GohScr-Mp-Z-Kind Implant - [id number] Implanted:Qty: 1 on 06/26/2011 at [facility] A BUILDINGImplantLeft: BreastMENTOR JOAN [id number] / / [id number]:[place] CPX3 Med Height Tissue NmbaemojQzp-Rm-V-Kind Implant - [id number] Implanted:Qty: 1 on 04/08/2012 [facility] A BUILDINGImplantRight: BreastALL[employer] INC 11/07/201510-210 / [id number] / N/ADescription:Emma Silicone Filled Breast DdnmvhdRgl-Iy-A-Kind Implant - [id number] Implanted:Qty: 1 on 04/08/2012 [facility] A BUILDINGImplantLeft: BreastALLERGAN INC 07/07/201620-800 / [id number] / N/ADescription:Emma Silicone Filled Breast ImplantExp Tiss 550ml Styl 7200 Med - [id number] Implanted:Qty[facility] / BreastLeft: Breast [employer]04/30/[id number] / / [id number] Brst 375ml Styl 20 Smth - [id number] Implanted:Qty: 1 on 03/17/2013 at [facility] / BreastRight: Breast [employer] BREAST DIV03/17/079745696 / [id number] / [id number]:smooth round high profileImp Brst 700ml Styl 20 Smth - [id number] Implanted:Qty: 1 on 03/17/2013 at [facility] / BreastLeft: Breast [employer] BREAST DIV12/15/551902510 / [id number] / [id number]:smooth round high profileExplantedTypeAreaManufacturerDevice Formerly [facility] Expiration DateModel / Serial / JmcFzb-Uk-H-Kind Implant - [id number] Explanted:Qty: 1 on 06/26/2011 at [facility]plantLeft: BreastALLERGAN INC 11/23/20148400332TG-68 / [id number] / Description:Tissue Winter Sports Manager Moderate height Procedures Procedure NamePriorityDate/TimeAssociated DiagnosisCommentsCBC + DIFFRoutine 08/21/2024 11:00 AM EDT Malignant neoplasm of upper-outer quadrant of left breast in female, estrogen receptor negative (HCC) COMPREHENSIVE METABOLIC LULTIZucsznv73/21/2025 11:00 AM EDT Malignant neoplasm of upper-outer quadrant of left breast in female, estrogen receptor negative (HCC) from Last 3 Months or Most Recently Relevant to Health Maintenance Results * (ABNORMAL) COMPREHENSIVE METABOLIC PANEL (08/21/2024 11:00 AM EDT)Component ValueRef RangeTest MethodAnalysis TimePerformed AtPathologist Signature Protein, Total6.96.3 - 8.0 g/dL08/21/2024 12:22 PM EDTNORTHENRY [facility]D [facility] LABAlbumin4.13.9 - 4.9 g/dL08/21/2024 12:22 PM EDTNORTHENRY [facility]D [facility] LABCalcium, Total10.18.5 - 10.2 mg/dL08/21/2024 12:22 PM EDTNORTHENRY [facility]D [facility] LABBilirubin, Total0.40.2 - 1.3 mg/dL 08/21/2024 12:22 PM EDTREYNOLDS [facility] LABAlkaline Edeurapcrdb9434 - 123 U/L08/21/2024 12:22 PM EDROCKEFELL[facility] SJWMFE1982 - 35 U/L08/21/2024 12:22 PM EDTNOSTEV[facility] ZOEOWI366 - 38 U/L08/21/2024 12:22 PM EDROC[facility]FE[facility] YTNMbapbrl374(H)74 - 99 mg/dL08/21/2024 12:22 PM [facility] LABComment: The [place] Diabetes Association (ADA) provides guidance for cutoff [...] Standards of Medical Care in Diabetes 2016, [place] Diabetes Association. Diabetes Care. 2016.39(Suppl 1). BUN61(H)7 - 21 mg/dL08/21/2024 12:22 PM [facility] Creatinine1.33(H)0.58 - 0.96 mg/dL08/21/2024 12:22 PM [facility] JZAWdoivj135406 - 144 mmol/L08/21/2024 12:22 PM [facility] LABPotassium4.83.7 - 5.1 mmol/L08/21/2024 12:22 PM EDT [facility] VLYNwuorkgf06818 - 107 mmol/L08/21/2024 12:22 PM EDROCKEFE[facility] FHPYA04569 - 30 mmol/L08/21/2024 12:22 PM [facility] LABAnion Lqp580 - 15 mmol/L08/21/2024 12:22 PM [facility] LABEstimated Glomerular Filtration Rate42(L)>=60 mL/min/1.73m 08/21/2024 12:22 PM [facility] LABComment:Estimated Glomerular Filtration Rate (eGFR) is [...] VolumeCollection TimeReceived TimeBloodBLOOD SPECIMEN / UnknownVenipuncture / Hrdpcjq5508/21/2024 11:00 AM EDT08/21/2024 11:01 AM EDT Narrative Authorizing ProviderResult TypeResult StatusBrarmando Mercado MDLABORATORY Final ResultPerforming OrganizationAddressCity/State/ZIP CodePhone Number [facility] [address] [place] [address] * (ABNORMAL) COMPLETE BLOOD COUNT AND DIFFERENTIAL (08/21/2024 11:00 AM EDT) ComponentValueRef RangeTest MethodAnalysis TimePerformed AtPathologist SignatureWBC7.713.70 - 11.00 k/08/21/2024 11:09 AM EDNOSTEVENS CLINIC [facility]OSPITAL LABRBC4.073.90 - 5.20 m/08/21/2024 11:09 AM [facility] FCGAjnsiheggw91.1(L)11.5 - 15.5 g/dL08/21/2024 11:09 AM EDROCKEFELL[facility] JGAAlkwzyusle77.2(L)36.0 - 46.0 % 08/21/2024 11:09 AM EDNOSTEVENS CLINIC [facility] NZDVBI81.080.0 - 100.0 ND08/21/2024 11:09 AM [facility] RIUGXA15.3 26.0 - 34.0 pg08/21/2024 11:09 AM [facility] LABMCHC 32.530.5 - 36.0 g/dL08/21/2024 11:09 AM [facility] LABRDW-CV15.7(H)11.5 - 15.0 %08/21/2024 11:09 AM [facility] LABPlatelet Kkhea105041 - 400 k/08/21/2024 11:09 AM [facility] LABMPV9.79.0 - 12.7 ND08/21/2024 11:09 AM [facility] LABNeutrophils %63.5%08/21/2024 11:09 AM [facility] LABAbs Neut4.901.45 - 7.50 /08/21/2024 11:09 AM EDT [facility] LABLymphocytes %20.4%08/21/2024 11:09 AM EDT [facility] LABAbs Lymph1.571.00 - 4.00 k/08/21/2024 11:09 AM [facility] LABMonocytes %9.7%08/21/2024 11:09 AM EDROCKEFELL[facility] LABAbs Mono0.75<0.87 k/uL 08/21/2024 11:09 AM [facility] LABEosinophils %5.2% 08/21/2024 11:09 AM EDROCKEFE[facility] LABAbs Eosin0.40<0.46 k/uL08/21/2024 11:09 AM EDTREYNOLDS [facility] LABBasophils %0.8 %08/21/2024 11:09 AM EDROCKEFE[facility] LABAbs Baso0.06<0.11 k/uL08/21/2024 11:09 AM [facility] LABImmature Granulocytes %0.4%08/21/2024 11:09 AM EDROCKEFE[facility] LAB Abs Immature Gran0.03<0.10 k/uL08/21/2024 11:09 AM [facility] LABNRBC0.0/100 WBC08/21/2024 11:09 AM [facility] LABAbsolute nRBC<0.01<0.01 k/08/21/2024 11:09 AM [facility] LABDiff YpnmIuvc67/21/2025 11:09 AM [facility] LABSpecimen (Source)Anatomical Location / Laterality Collection Method / VolumeCollection TimeReceived TimeBloodBLOOD SPECIMEN / UnknownVenipuncture / Lltcnak2108/21/2024 11:00 AM EDT08/21/2024 11:01 AM EDT Narrative Authorizing ProviderResult TypeResult StatusBrarmando Mercado MDLABORATORY Final ResultPerforming OrganizationAddressCity/State/ZIP CodePhone Number [facility] [address] [place] [address] from Last 3 Months or Most Recently Relevant to Health Maintenance Insurance Advance Directives TypeDate RecordedPatient RepresentativeExplanationAdvance Directive(s)06/07/2020 2:34 PMAdvance Directive(s)06/07/2020 2:34 PM Care Teams Team MemberRelationshipSpecialtyStart DateEnd Date Mervin Chanel DO PCP - GeneralInternal Medicine06/04/20
--- OUTSIDE RECORDS SUMMARY | 2025-02-28 14:48 | XMS_ITS | Encounter Summary ---
Author Organization [facility] Address [address] [facility] [place] [address] Care Team Providers Care Aircraft Stress Analyst Name Role Phone Mervin Chanel DO Primary Care Provider [phone] Encounter Details DateTypeDepartmentCare Team (Latest Contact Info)Nzncvukrnqf51/22/2024Clinisync Result Encounter [facility] Unsolicited Deb Robles MD [address] [facility] [address] [place] [address] Social History Tobacco UseTypesPacks/DayYears UsedDateSmoking Tobacco: NeverSmokeless Tobacco: NeverAlcohol UseStandard Drinks/WeekCommentsYes1 (1 standard drink = 0.6 oz pure alcohol)caffeine intake: 2-3 cups per day of diet cokeCommentsUnknownSex and Gender InformationValueDate RecordedSex Assigned at BirthNot on fileLegal MztJapvgb46/15/2023 7:03 PM EDTGender IdentityNot on fileSexual OrientationNot on filedocumented as of this encounter Plan of Treatment DateTypeDepartmentCare Team (Latest Contact Info)Frgpvkqxzcx64/03/2025 2:15 PM ESTOffice Visit [facility] [address] [place] [address] Nba Malhotra DO [address] [place] [address] 03/19/2025 3:15 PM ESTProcedure Visit [facility] [address] [place] [phone] Wilfrid Olson, DPDerrek [address] [place] [id number] documented as of this encounter Procedures Procedure NamePriorityDate/TimeAssociated DiagnosisCommentsXR PARANASAL SINUSES 3+ VIEWS03/24/2024 3:50 PM EST documented in this encounter Results * XR paranasal sinuses 3+ views (03/24/2024 3:50 PM EST)Anatomical Region LateralityModalityHead, NeckRadiographic ImagingSpecimen (Source)Anatomical Location / LateralityCollection Method / VolumeCollection TimeReceived Time 03/24/2024 3:50 PM EST Narrative 03/24/2024 3:52 PM EST [facility] ?[address] ? [place] [address] ?XRay Report ? Signed ? Patient: ONIEL,RENUKA A ?MR#: [id number] ?? : 1950 ?Acct:[id number] ?? Age/Sex: 73 / F ?ADM Date: 03/23/24 ?? Loc: RAD ? Attending Dr: Deb Robles M.D. ? Ordering Physician: Deb Robles M.D. ?? Date of Service: 03/23/24 ?? Procedure(s): XR sinus min 3V ?? Accession Number(s): [id number] ? cc: Mervin Chanel D.O.; Deb Robles M.D. ? [facility] ? [address] ? [place] [address] ? Patient Name: ?? RENUKA A ONIEL ? MRN: [id number] ? date: 1950 ?Sex: F ?? Assigned Patient Location: RAD ?? Current Patient Location: ? Accession/Order Number: [id number] ?? Exam Date: 03/23/2024 ??14:19 ?Report Date: 03/24/2024 ??15:50 ? At the request of: ?? DEB ??TIMMIS ? Procedure: ??XR sinus min 3V ? EXAMINATION: XR sinus min 3V ? HISTORY: Chronic Sinusitis ? COMPARISON: No relevant comparison available. ? FINDINGS: ?? MAXILLARY: Mild mucosal thickening bilaterally. ?? ETHMOID: No appreciable mucosal thickening or fluid level. ?? FRONTAL: Suspect mild mucosal thickening. ?? SPHENOID: No appreciable mucosal thickening or fluid level. ?? OTHER: Negative. ? XR/XR sinus min 3V ?? IMPRESSION: ? 1. No fluid levels to suggest acute sinusitis. ?? 2. suspect mild chronic sinusitis of the frontal and maxillary sinuses. ? Electronically authenticated by: WILFRID ??ALTA ?? Date: 03/24/2024 ??15:50 ? Dictated By: ?Wilfrid Rosales M.D. ? Signed By: ?03/24/24 1552 ? DD/ 1550 ? TD/TT: ? Risk Control Product Liability Director: Procedure Note Radiology, Radiologist, MD - 03/24/2024 [place] [address] XRay Report Signed Patient: RENUKA ENGLE AMR#: [id number] : 1950Acct:[id number] Age/Sex: 73 / FADM Date: 03/23/24 Loc: RAD Attending Dr: Deb Robles M.D. Ordering Physician: Deb Rolbes M.D. Date of Service: 03/23/24 Procedure(s): XR sinus min 3V Accession Number(s): [id number] cc: Mervin Chanel D.O.; Deb Robles M.D. The [place] [address] Patient Name: RENUKA ENGLE MRN: [id number] date: 1950 Sex: F Assigned Patient [facility] Current Patient Location: Accession/Order Number: [id number] Exam Date: 03/23/2024 14:19 Report Date: 03/24/2024 [...] 15:50 Dictated By: Wilfrid Rosales M.D. Signed By:03/24/24 1552 DD/ 49 TD/TT: Risk Control Product Liability Director: Authorizing ProviderResult TypeResult StatusHilary Celia Robles MDIMG XR PROCEDURES Final Result documented in this encounter Visit Diagnoses Not on filedocumented in this encounter Care Teams Team MemberRelationshipSpecialtyStart DateEnd Date Mervin Chanel DO [address] [place] [phone] PCP - GeneralInternal Medicine09/30/22documented as of this encounter
--- OUTSIDE RECORDS SUMMARY | 2025-02-28 14:52 | XMS_ITS | CCD ---
Author Organization [facility] Inform ion Partnership [facility] Care Team Providers Care Operational Risk Manager Name Role Phone BRYCE HENDRICKSON Unavailable Unavailable SYLVESTER JACOB Unavailable Unavailable DO Sylvester Jacob Primary Care Provider [phone] MD Devin Moreau Attending Provider [phone] DO Sylvester Jacob Primary Care Provider MD [...] Unavailable DO Sylvester Jacob Primary Care Provider [phone] MD Devin Moreau Attending Provider Sylvester Jacob DO Primary Care Provider Radha Moreau Unavailable DO Sylvester Jacob Primary Care Provider [phone] MD Devin Moreau Attending Provider MD Radha Moreau Attending Provider NON STAFF Primary Care Provider UnavailMD Jared Allen Other Provider [phone] MD Saman Marino Admit Provider MD Saman Marino Attending Provider [phone] PROVIDER, UNKNOWN Attending Unavailable PROVIDER, UNKNOWN Admitting [...] Admit Provider Josh Sosa MD Attending Provider Danyelel Mathews MD Other Provider Regina Garcia DO Emergency Provider [phone] FriIsaiah nair DO Admit Provider Isaiah Mejia DO Attending Provider [phone] Sherin Arellano MD Other Provider Zenobia Carrasco MD Other Provider Saman Marino MD Other Provider Marley Mendieta APRN Other Provider [phone] Iglesia Garza DO Other Provider Jared Louis MD Other Provider [phone] Landon Whitfield MD Attending Provider Douglas MARTELL, Emory Anglin Attending Provider Sylvester Jacob DO Primary Care Provider Regina Garcia DO Emergency Provider Roberto DO, Isaiah Admit Provider Sherin Arellano MD Other Provider Landon Whitfield MD Attending Provider Luna MARTELL, Zenobia Other Provider Saman Marino MD Other Provider Marley Menditea APRN Other Provider Belmarshall DO, Iglesia Lamas Other Provider Heriberto MARTELL, Jared Palacios Other Provider Douglas [...] Other Provider Josue Cosme MD Other Provider [phone] Alexa MARTELL, Lloyd Carlin Other Provider [phone] Panda Dietrich MD Other Provider Charlie Garcia DO Other Provider Sam DOJatin Other Provider Joshua MARTELL, Cherise Other Provider Casimiro Booth MD Other Provider Iain MARTELL, Sorin Other Provider Tino Gaffney MD Other Provider Danyelle Mathews MD Other Provider Juan David RESTAURANT BUSSER-C, Kimmy Other Provider Unavailable Adan MARTELL, Sherin [...] Provider Donis MARTELL, Yo Other Provider Nazia [facility], Priti Lamas Other Provider Iraj Juan MD Attending Provider JACOB MERCADO Referring Unavailable SYLVESTER JACOB Primary Care Unavailable JACOB MERCADO Attending Unavailable JACOB MERCADO Referring Unavailable SYLVESTER JACOB Primary Care Unavailable Jared Louis MD Admit Provider [phone] Jared Louis MD Other Provider Deana LAKE, Regina Other Provider Unavailable Theresa Velez RN Other Provider Unavailable Magi Young RN Other Provider Unavailable Blanca Arvizu RN Other Provider Unavailable Nava Oconnell RN Other Provider Unavailable Areli Marino RN Other Provider Unavailable Mary Marc MD Other Provider Cb Adam DO Other Provider Nohelia MD, Dylan Other Provider Nusratmarquise FENG Freddy Other Provider Tiera MARTELL, Guero Other Provider [phone] Alex MARTELL, Yary Other Provider [phone] Leo FENG, Isaiah Other Provider Robin MARTELL, Servando Other Provider Unavailable Roxie Love APRN Other Provider [phone] Emily MARTELL, Jasmine Other Provider [phone] Jorge L MARTELL, Sterling Other Provider Aly MARTELL, Israel Other Provider Unavailable Gage Pena MD Other Provider Isaiah Mejia DO Other Provider Jeanna MARTELL, Wallace Other Provider Soha MARTELL, Yonas Other Provider Marya RESTAURANT BUSSER-C, Julito Torres Other Provider Daniel ANTONY, Leonardo Anglin Other Provider Unavailable Evangelist MARTELL, Zak Rosenthal Other Provider Demarco MARTELL, Joaquin Other Provider Maynor Conway MD Other Provider Davian MARTELL, Dale Other Provider Unavailable Meño Saldana MD Other Provider Tatiana Sibley DO Other Provider Byron Dave DO Other Provider Sheila ANTOYN, Xi Other Provider Zechariah Mccarthy DO Other Provider Dorita MARTELL, Ambika Anglin Other Provider Radhika Bueno APRN Other Provider Lloyd ANTONY, Tammi Hernández Other Provider [phone] Rodo MARTELL, Kaveh Other Provider Unavailable Max Haji MD Other Provider Lake DO, Nathaniel T Other Provider [phone] Chevy DO, Hortensiagaurav Other Provider Zoraida MARTELL, Caesar Campos Other Provider Deborah Avina MD Other Provider Belem Mauro APRN Other Provider Unavailable Sung MARTELL, Lisette Other Provider Saman Duran MD Other Provider Surya MARTELL, Servando Walters Other Provider [phone] Lin ANTONY, Abi Dewitt Other Provider [phone] Maria C Martinez APRN Other Provider [phone] Rocío LAKE, Aura Other Provider Unavailable Marley Mendieta APRN Attending Provider Heriberto MARTELL, Jared Palacios Attending Provider [phone] Sylvester Jacob DO Primary Care Provider Sylvester Jacob DO Attending Provider Josh Sosa MD Admit Provider Unavailable Josh Sosa MD Other Provider Unavailable Sam DO Jatin P Other Provider Unavailable Jayro Wilburn MD [...] Unavaila cat Mathews MD, Danyelle Attending Provider [phone] Sylvester Jacob DO Primary Care Provider Sylvester Jacob DO Attending Provider [phone] Josh Sosa Admitting Unavailable Josh Sosa Attending [...] Jr Consulting UnavailJared Allen Consulting Unavaila cat [facility] Unavailable Emory Cole II Attending UnavailEmory Best II Admitting Unavailabl galo [facility] Unavailable Devin Moreau Attending Unavailable Devin Moreau Admitting Unavailable [facility] Unavailable Danyelle Mathews Attending Unavailable Reid, Essam Admitting Unavailable [facility] Unavailable Jared Louis Attending Unavaila Regina [...] Conway Consulting Unavailable Deborah Avina Consulting Unava ilBelem Castellon Consulting Unavailable Lisette Almaraz Consulting Unavailable Josh Sosa Consulting Unavailable Saman Duran Consulting Unavailable Servando [place] Consulting Unavailable Landon Whitfield Consulting Unavailable Abi Ceballos Consulting Unavailable Bolshankar-Maria C Jimenez Consulting Unavaila Aura Perez Consulting Unavailable Landon Whitfield Attending Unavailable Sylvester Jacob Primary Care Unavailable Sherin Arellano Consulting Unavailable Isaiah Mejia Admitting Unavailable Zenobia Carrasco Consulting Unavailable Saman Marino Consulting Unavailable Marley Mendieta Consulting Unavailable Iglesia Garza Jr Consulting UnavailJared Allen Consulting Unavaila ble Sylvester Jacob DO Primary Care Provider ALLEN ENCARNACION Attending Unavailable TAMY KHAN Attending Unavailable TAMY KHAN Attending Unavailable TAMY KHAN Referring Unavailable BRAN LINDA Attending Unavailable SYLVESTER JACOB Referring Unavailable DICK LEVIN Attending Unavailable CHUCK COPE Attending Unavailable SYLVESTER JACOB Referring Unavailable CHUCK COPE Attending Unavailable MARCE KHAN Attending Unavailable DICK LEVIN Referring Unavailable Sylvester Jacob DO Primary Care Provider BRYCE HENDRICKSON Attending Unavailable BRYCE HENDRICKSON Referring Unavailable SYLVESTER JACOB Primary Care Unavailable BRYCE HENDRICKSON Attending Unavailable BRYCE HENDRICKSON Referring Unavailable SYLVESTER JACOB Primary Care Unavailable BRYCE HENDRICKSON Referring Unavailable SYLVESTER JACOB Primary Care Unavailable Allergies Allergy ClassificationReported Allergen(s)Allergy TypeDate of OnsetReaction(s) FacilityHMG-CoA Reductase Inhibitors (statins) (1 source)atorvastatinDrug Gxilhgs20-26-5067UttgzTkvxhoxbdCorey HospitalIodine (and Iodine containting drugs) (1 source)IodineDrug Hpwwnmi93-84-8306Srjqarf ReactionShelby Memorial HospitalPenicillins (antibiotic) (3 sources)PenicillinDrug Ajlxqpn80-62-4219Vpkaihf Reaction, Comment:Penicillin, [facility] CantonQuinolones (antibiotic) (1 source)levoFLOXacinDrug Fshnjyr25-21-1867Stgwxmr ReactionShelby Memorial Hospital (20 sources)atorvastatin; Translations: [atorvastatin]Drug Ivdsmxp32-11-5845 [facility] (20 sources)Penicillins; Translations: [Penicillins]Allergy to substance 34-78-2589PyqzmEuxaqavdpSelect Medical Specialty Hospital - Canton (20 sources)Penicillin GDrug Ahhxoon28-82-7220Htwsmrr, Unknown ReactionShelby Memorial Hospital (5 sources)atorvastatin; Translations: [Lipitor]Drug AllergyMer[facility] 600 DO Work Phone: (5 sources)Hmg-Coa Reductase Inhibitors (Statins); Translations: [Statins] Allergy to drug (finding)[facility] 600 DO Work Phone: (7 sources)atorvastatin; Translations: [ATORVASTATIN CALCIUM]Drug Allergy 73-12-9642IjucuarYsbuicakd Clinic (20 sources)IodineDrug Qavmngt23-71-6928Zbggril, Unknown ReactionShelby Memorial Hospital (1 source)AmoxicillinDrug AllergyPremier Health [facility] Rep[facility] (1 source)DextroamphetamineDrug AllergyThe [facility] Repository (20 sources)levoFLOXacinDrug AllergyUnknowSelect Specialty Hospital [employer] Other (20 sources)Penicillin VDrug Eohlfrk44-18-7939Kzawxmn:[facility] (1 source)patient allergy list reviewed by nurse or physiciaPropensity to adverse jvmapnzzx09-25-5727Bkbkvai:[employer] Other (9 sources)HMG-CoA reductase inhibitor; Translations: [ZLVQHCC-CAO-BFT REDUCTASE INHIBITORS]Drug Flwfunz39-67-1725LsqxbXllxzgwpeuEast [facility] Hospital Work Phone: (20 sources)levoFLOXacin; Translations: [levofloxacin]Drug Pjhsdva23-99-2758 Unknown ReactionShelby Memorial Hospital Medications Current Medications MedicationDrug Class(es)DatesSig (Normalized)Sig (Original)acetaminophen 500 mg oral tablet (20 sources)Start: 53-96-2498jlby 1 tablet by mouth every four hours as needed for painAcetaminophen 500 mg Tablet Active 500 MG PO Q4H as needed for Pain 0 November 30, 2024 12:00am Complies with drug therapyStart: 04-19-2023 End: 58-44-0984ymvs 1 tablet by mouth every four hours as needed for pain Acetaminophen 500 mg Tablet Discontinued 500 MG PO Q4H as needed for Pain 0 April 19, 2023 1:00am November 14, 2024 5:57pmStart: 04-15-2023 End: 32-47-0934ykhu 2 tablets by mouth every four hours as needed for pain Acetaminophen (Tylenol) 325 mg Tablet Discontinued 650 MG PO Q4H as needed for Mild Pain 0 2022 1:00am April 19, 2023 3:08pmStart: 09-24-2021 End: 25-14-3372xjzb 1 tablet by mouth every four hours as needed for pain Acetaminophen 500 mg Tablet Discontinued 500 MG PO Q4H as needed for Pain September 24, 2021 12:00am April 15, 2023 9:14am Take with tramadolStart: 02-68-0565ytbt 500 mg by mouth twice dailyAcetaminophen Active 500 MG PO Twice daily September 23, 2021 11:00pm Take with tramadolazithromycin 250 mg oral tablet (3 sources)Macrolide AntimicrobialStart: 28-14-6050Jdocqoreejhu 250 MG as directed Orally daily for 5 days May, Activecalcium carbonate 1500 mg oral tablet (20 sources)take 1 tablet by mouth in the morningcalcium carbonate (Calcium 600) 600 MG tablet Take 600 mg by mouth in the morning and 600 mg in theevening. Take with meals. Activecalcium carbonate 1500 mg / cholecalciferol 0.01 mg oral tablet (20 sources)Vitamin DStart: 91-01-2377appp 1 tablet by mouth twice dailyCalcium Carbonate-Vitamin D3 (Calcium 600 + D(3)) 600 mg-10 mcg (400 unit) Tablet Active 1 TAB PO Twice daily September 24, 2021 12:00am Complies with drug therapy cetirizine hydrochloride 10 mg oral tablet (20 sources)Histamine-1 Receptor AntagonistStart: 59-22-6737PUXCXFM RELIEF, CETIRIZINE, 10 mg tablet 02/28/2021 Activecholecalciferol 0.025 mg oral capsule (20 sources)Vitamin Dtake 1 capsule by mouth once dailycholecalciferol (Vitamin D-3) 25 MCG (1000 UT) capsule Take 1,000 Units by mouth Daily Activetake 1 capsule by mouth in the morningcholecalciferol (Vitamin D-3) 25 MCG (1000 UT) capsule Take 1,000 Units by mouth in the morning. ActiveCyclosporine (6 sources)Calcineurin Inhibitor ImmunosuppressantStart: 35-35-8265zpzn 1 drop(s) into the eye(s) every twelve hoursCyclosporine 0.05 % Dropperette Active 1 DROPS EYE-BOTH Every 12 hours 0 November 30, 2024 12:00am Complies with drug therapyStart: 63-10-5441jzyd 1 drop(s) into the eye(s) every twelve hoursStart: 05-29-2024 End: 58-28-5885nrln 1 drop(s) into the eye(s) in the morningcycloSPORINE (Restasis) 0.05 % ophthalmic emulsion Indications: Keratoconjunctivitis sicca of both eyes not specified as Sjogren's Administer 1 drop into both eyes in the morning and 1 drop before bedtime. 180 mL 3 05/29/2024 08/27/2024 Active dapagliflozin 10 mg oral tablet (10 sources)Sodium-Glucose Cotransporter 2 InhibitorStart: 96-88-9669fgwl 1 tablet by mouth once dailyDapagliflozin Propanediol 10 mg tablet Active 10 MG PO Daily January 09, 2025 4:12pm Complieswith drug therapyStart: 11-14-2024 End: 86-27-8884wvpw 1 tablet by mouth once dailyDapagliflozin Propanediol 5 mg Tablet Discontinued 5 MG PO Daily 0 November 14, 2024 12:00am January 09, 2025 4:14pmdocusate sodium 100 mg oral capsule (8 sources)Start: 27-60-3326sfff 1 capsule by mouth twice daily as needed for constipationDocusate Sodium 100 mg Capsule Active 100 MG PO Twice daily as needed for Constipation 0 October 12:00am Complies with drug therapy Start: 11-30-2024 End: 07-37-7476Nltrksvr Sodium (Enemeez) 283 mg/5 mL Enema Discontinued 283 MG [place] Daily as needed for Constipation0 November 30, 2024 12:00am December 05, 2024 9:22amfluticasone propionate 0.05 mg/actuat metered dose nasal spray (20 sources)CorticosteroidStart: 01-09-2024 End: 16-16-1567kpry 2 spray(s) nasal route once daily as needed for congestion Fluticasone Propionate 50 mcg/actuation spray,suspension Active 0 .ROUTE .COMPLEX 48 October 0158:37am USE 2 SPRAYS IN EACH NOSTRIL ONCE A DAY NEEDED FOR NASAL CONGESTION Complies with drug therapyStart: 10-04-2020 End: 90-25-9872Etmeqrwzgou Propionate 50 mcg/actuation spray,suspension Discontinued 2 SPRAY INTRANASAL Daily as needed for Nasal Congestion December 15, 2023 1:23pm January 09, 2024 8:38amStart: 60-84-5652lpjqdnjkosw (FLONASE) 50 mcg/actuation nasal spray 2 Sprays once daily. 01/19/2016 Active take 1 spray(s) nasal route once dailyfluticasone (Flonase) 50 MCG/ACT nasal spray Administer 1 spray into each nostril Daily Shake gently. Before first use, prime pump. After use, clean tip and replace cap. Active End: 09-05-2232sptectmnjfh (Cutivate) 0.05 % cream Apply topically in [...] 20 mg oral tablet (14 sources)Loop DiureticStart: 97-62-0058ogxo 1 tablet by mouth twice daily as needed for edemaFurosemide 20 mg tablet Active 20 MG PO Twice daily as needed for edema 60 January 15, 2025 12:00pm Complies with drug therapyStart: 11-30-2024 End: 90-53-0971ufhj 1 tablet by mouth once dailyFurosemide 20 mg Tablet Discontinued 20 MG PO Daily at 0800 0 November 30, 2024 12:00am January 15, 2025 12:04pmStart: 11-14-2024 End: 58-66-2110gmij 1 tablet by mouth once dailyFurosemide 40 mg Tablet Discontinued 40 MG PO Daily at 0800 0 November 14, 2024 12:00am November 30, 2024 10:32amStart: 19-93-3985ivte 1 tablet by mouth every twenty-four hoursFurosemide 20 MG 1 tablet Orally Once a day for 30 days Apr, Activegabapentin 100 mg oral capsule (20 sources)Anti-epileptic AgentStart: 35-33-1692lhcn 2 capsules by mouth once dailyGabapentin 100 mg Capsule Active 200 MG PO Daily 0 November 14, 2024 12:00am Complies with drug therapyStart: 07-03-2024 End: 87-10-6194rspt 1 capsule by mouth four times dailyGabapentin 300 mg capsule Discontinued 300 MG PO Four times daily 120 September 29, 2024 11:59am November 14, 2024 3:26pmStart: 07-03-2024 End: 86-95-4140xwig 2 capsules by mouth twice dailyGabapentin 300 mg capsule Discontinued 600 MG PO Twice daily July 03, 2024 2:50pm July 0355:40pm Start: 06-22-2023 End: 75-24-3073peiz 2 capsules by mouth three times dailyGabapentin 300 mg capsule Discontinued 600 MG PO Three times daily April 04, 2024 3:41pm July 03, 2024 2:56pmStart: 22-89-7514vxxs 600 mg by mouth once dailyGabapentin Active 600 MG PO every day at noon September 24, 2021 10:44amStart: 09-24-2021 End: 16-96-4159Wijglojgcf 300 mg capsule Discontinued MG September 24, 2021 12:00am September 24, 2021 10:46amStart: 09-24-2021 End: 87-61-3679mlcy 3 capsules by mouth twice dailyGabapentin 300 mg capsule Discontinued 900 MG PO BID@1400,2199September 24, 2021 12:00am April 3:55pmStart: 44-89-8326nwcv 900 mg by mouth twice dailyGabapentin Active 900 MG PO BID@1400,2199September 24, 2021 12:00amStart: 09-24-2021 End: 88-17-3887Plakykzush Discontinued MG September 24, 2021 12:00am September 24, 2021 10:46amStart: 74-52-6488dyla 600 mg by mouth twice dailyGabapentin Active 600 MG PO BID@1400,2199September 24, 2021 12:00amStart: 10-04-2020 End: 61-59-0506nzrw 1 capsule by mouth once daily in the morningGabapentin 300 mg capsule Discontinued 300 MG PO Every morning October 04, 2020 12:00am April 6:36pmStart: 10-04-2020 End: 93-65-5853jfot 1 tablet by mouth once daily at [...] oral tablet (2 sources)Quinolone AntimicrobialStart: 03-08-2024 End: 48-56-7638mlhu 1 tablet by mouth once dailylevoFLOXacin (Levaquin) 500 MG tablet Indications: Chronic sinusitis, unspecified location Take 1 tablet (500 mg) by mouth Daily for 14 days 14 tablet 03/08/2024 03/22/2024 Activeloratadine 10 mg oral tablet (12 sources)take 1 tablet by mouth once dailyloratadine (Claritin) 10 mg tablet Take 1 tablet (10 mg) by mouth once daily. Activemelatonin 10 mg oral tablet (20 sources)Start: 69-02-7010iuoq 1 tablet by mouth at bedtime as needed for sleepMelatonin 10 mg Tablet Active 10 MG PO Bedtime as needed for Sleep March 16, 2022 1:00am Complies with drug kybimoo73 hr metoprolol succinate 25 mg extended release oral tablet (20 sources)beta-Adrenergic BlockerStart: 20-62-1262mwaj 1 tablet by mouth once dailyMetoprolol Succinate 25 mg tablet extended release 24 hr Active 0 .ROUTE .COMPLEX January 15, 2025 7:35am TAKE 1 TABLET BY MOUTH EVERY DAY Complies with drug therapyStart: 11-30-2024 End: 85-98-6765gjbz 1 tablet by mouth once dailyMetoprolol Succinate 25 mg Tablet Extended Release 24 Hr Discontinued 25 MG PO Daily 0 November 30, 2024 12:00am January 15, 2025 7:35amStart: 11-14-2024 End: 43-44-2465Bbcixngccn Succinate 25 mg Tablet Extended Release 24 Hr Discontinued 75 MG PO Daily 0 November 14, 2024 12:00am November 30, 2024 10:32am Start: 07-21-2024 End: 96-48-2080nycy 1 tablet by mouth once dailyMetoprolol Succinate 25 mg tablet extended release 24 hr Discontinued 0 .ROUTE .COMPLEX July 21, 2024 4:35pm November 14, 2024 3:26pm TAKE 1 TABLET BY MOUTH EVERY DAYStart: 06-27-2024 End: 24-25-8829neqt 1 tablet by mouth once dailyMetoprolol Tartrate 25 mg tablet Discontinued 25 MG PO Daily June 27, 2024 10:01pm July 21, 2024 4:35pmtake 1 tablet by mouth every twenty-four hoursmetoprolol succinate XL (Toprol-XL) 25 MG 24 hr tablet Take by mouth Do not crush or chew. Active montelukast 10 mg oral tablet (20 sources)Leukotriene Receptor AntagonistStart: 03-28-2024 End: 36-31-1511hlib 1 tablet by mouth at bedtimemontelukast (Singulair) 10 MG tablet Indications: Chronic frontal sinusitis Take 1 tablet (10 mg) by mouth at bedtime 90 tablet 3 03/28/2024 03/28/2025 ActiveNaproxen (6 sources)Nonsteroidal Anti-inflammatory Drug End: 12-68-8294RYXJCTAY SODIUM ORAL Take by mouth if needed. 0 03/02/2023 Discontinued (Other)Aleve TABS as needed Quantity: 0 Refills: 0 Ordered: 10-Feb-2022 DO Activenortriptyline 10 mg oral capsule (11 sources)Tricyclic AntidepressantStart: 10-23-2024 End: 30-77-0177ytcx 1 capsule by mouth at bedtimenortriptyline (Pamelor) 10 MG capsule Indications: Bilateral carpal tunnel syndrome Take 1 capsule (10 mg) by mouth at bedtime 30 capsule 11 10/23/2024 10/23/2025 Activeomeprazole 40 mg delayed release oral capsule (20 sources)Proton Pump InhibitorStart: 80-48-7122wdpflckkei (PriLOSEC) [address] capsule 05/20/2024 ActiveStart: 02-24-2024 End: 03-80-4948Xbsfwnrlsd 40 mg capsule,delayed release(DR/EC) Discontinued 0 .ROUTE .COMPLEX February 24, 2024 8:39am November 14, 2024 6:00pm TAKE 1 CAPSULE BY MOUTH ONCE A DAY ON EMPTY STOMACH FOLLOWED IN 30 MINUTES BY BREAKFAST FOR 90 DAYSStart: 11-24-2016 End: 11-93-4193fbii 1 capsule by mouth once dailyOmeprazole 20 [...] release oral tablet (5 sources)Proton Pump InhibitorStart: 98-35-9514eftj 1 tablet by mouth once dailyPantoprazole 40 mg Tablet,Delayed Release (Dr/Ec) Active 40 MG PO Daily 0 November 14, 2024 12:00am Complies with drug therapypredniSONE 10 mg oral tablet (20 sources)Start: 09-28-2024 End: 57-67-4429sniwzkWUDF (Deltasone) 10 MG tablet Indications: Osteoarthritis of midtarsal joint of left foot , Capsulitis of left foot , Pain in joint of left foot , Pain and swelling of toe of left foot , Difficulty walking 1 tablet twice daily x 7 days; followed by 1 tablet daily as directed until complete 21 tablet 09/28/2024 10/23/2024 Discontinued (Therapy completed)Start: 03-28-2024 End: 87-08-7620feor 1 tablet by mouth in the morningpredniSONE (Deltasone) 20 MG tablet Indications: Chronic frontal sinusitis Take 1 tablet (20 mg) bymouth in the morning and 1 tablet (20 mg) before bedtime. Do all this for 6 days. 12 tablet 03/28/2024 04/03/2024 ActiveStart: 03-08-2024 End: 48-32-1709zeuo 1 tablet by mouth in the morningpredniSONE (Deltasone) 20 MG tablet Indications: Chronic sinusitis, unspecified location Take 1 tablet (20 mg) by mouth in the morning and 1 tablet (20 mg) before bedtime. Do all this for 6 days. 12 tablet 03/08/2024 03/14/2024 ActiveStart: 19-08-2665gzxrsbTAWA 5 MG 1 tablet 3 times a day for 3 days, 1 tablets 2 times a day for 3 days , 1 tablet 1 times a day for 3 days Orally as directed for 9 days Jan, Active Start: 41-82-0340evplcqWZYR 20 MG 1 tablet Orally twice daily w/ food x 3 days then qd w/ food x 3 days for 6 days Jan, Not-Taking/PRNStart: 04-01-2022 End: 85-87-8239Mcfjdjveai 10 mg tablets,dose pack Discontinued 1 dose pk PO per package directions April 01, 2022 1:00am March 26, 2023 2:38pm take 4 tabs for 3 days then take 3 tabs for 3 days then take 2 tabs for 3 days then take 1 tab for 3 daysStart: 04-01-2022 End: 32-88-0977Mjjmrordyg Discontinued 1 dose pk PO per package directions April 01, 2022 1:00am March 26, 2023 2:38pm take 4 tabs for 3 days then take 3 tabs for 3 days then take 2 tabs for 3 days then take 1 tab for 3 daysStart: 04-01-2022 End: 67-81-1817Lptgykocuv Discontinued 1 dose pk PO per package directions April 01, 2022 12:00am 2022 1:38pm take 4 tabs for 3 days then take 3 tabs for 3 days then take 2 tabs for 3 days then take 1 tab for 3 daysStart: 10-81-7234Avjtponeyg Active 1 dose pk PO per package [...] then take 1 tab for 3 daysStart: 34-24-5543Rhnxnybpvw Active 1 dose pk PO per package directions October 09, 2021 12:22pm take 4 tabs for 3 days then take 3 tabs for 3 days then take 2 tabs for 3 days then take 1 tab for 3 days Start: 10-09-2021 End: 86-61-1556Vhyydgcgdx 10 mg tablets,dose pack Discontinued 1 dose pk PO per package directions October 09, 2021 12:00am March 16, 2022 12:00pm take 4 tabs for 3 days then take 3 tabs for 3 days then take 2 tabs for 3 days then take 1 tab for 3 daysStart: 10-09-2021 End: 87-88-3743Hheejteqbv Discontinued 1 dose pk PO per package directions October 09, 2021 12:00am March 16, 2022 12:00pm take 4 tabs for 3 days then take 3 tabs for 3 days then take 2 tabs for 3 days then take 1 tab for 3 days Start: 10-09-2021 End: 39-29-6978Vnouxhxfdg Discontinued 1 dose pk PO per package directions October 08, 2021 11:00pm March 16, 2022 11:00am take 4 tabs for 3 days then take 3 tabs for 3 days then take 2 tabs for 3 days then take 1 tab for 3 days thiamine 100 mg oral tablet (8 sources)Start: 10-23-2024 End: 36-72-4297jpnz 1 tablet by mouth once dailythiamine (Vitamin B-1) 100 MG tablet Indications: Bilateral carpal tunnel syndrome Take 1 tablet (100 mg) by mouth Daily 30 tablet 11 10/23/2024 10/23/2025 Activetolterodine tartrate 1 mg oral tablet (20 sources)Cholinergic Muscarinic AntagonistStart: 34-52-3837lzjb 1 tablet by mouth twice dailyTolterodine 1 mg tablet Active 0 .ROUTE .COMPLEX 60 July 29, 2024 3:43pm TAKE 1 TABLET BY MOUTH TWICE A DAY Complies with drug therapyStart: 07-06-2024 End: 17-02-6009clia 1 tablet by mouth twice dailyTolterodine 1 mg tablet Discontinued 1 MG PO Twice daily 60 July 06, 2024 1:00am July 29, 2024 3:43pmStart: 07-28-2023 End: 09-05-6693apqv 1 tablet by mouth twice dailyTolterodine 2 mg tablet Discontinued 2 MG PO Twice daily 60 July 28, 2023 10:14am September 07, 2023 7:32amStart: 07-16-2022 End: 62-33-2487fwqyqdrhdjl (Detrol) 2 mg tablettraMADol hydrochloride 50 mg oral tablet (20 sources)Opioid AgonistStart: 10-23-3823fisn 1 tablet by mouth every eight hours as needed for painTramadol 50 mg tablet Active 50 MG PO Every 8 hours as needed for pain 90 December 07, 2024 12:00am Complies with drug therapyStart: 11-04-2021 End: 09-70-4470uzan 1 tablet by mouth twice dailyTramadol 50 mg tablet Discontinued 50 MG PO Twice daily March 16, 2022 1:00am April 01, 2022 11:36amStart: 03-18-2021 End: 64-68-4508xhcm 1 tablet by mouth every six hoursTramadol 50 mg tablet Discontinued 50 MG PO Every 6 hours June 29, 2023 1:00am October 11, 2023 6:10pmStart: 10-04-2020 End: 36-35-4263kenx 1 tablet by mouth twice dailyTramadol 50 mg tablet Discontinued 50 MG PO Twice daily October 04, 2020 12:00am October 09, 2021 12:22pm Comment on above:every 6 hours as needed.traZODone hydrochloride 50 mg oral tablet (20 sources)Serotonin Reuptake InhibitorStart: 40-58-5210whxy 0.5-1 tablets by mouth once daily at bedtimeTrazodone 50 mg tablet Active 0 .ROUTE .COMPLEX December 24, 2024 6:14pm TAKE 1/2 - 1 TABLET BY MOUTH EVERYDAY AT BEDTIME Complies with drug therapyStart: 09-29-2024 End: 05-32-1992yiov 2 tablets by mouth once daily at bedtimeTrazodone 50 mg tablet Discontinued 100 MG PO Daily at bedtime 180 September 29, 2024 12:03pm November 14, 2024 3:26pmStart: 06-22-2024 End: 85-41-3786ffbm 0.5-1 tablets by mouth once daily at bedtimeTrazodone 50 mg tablet Discontinued 0 .ROUTE .COMPLEX June 22, 2024 8:08am September 29, 2024 12:04pm TAKE 1/2 - 1 TABLET BY MOUTH EVERYDAY AT BEDTIMEStart: 06-05-2024 End: 03-99-4938txvu 1 tablet by mouth at bedtimeTrazodone 100 mg Tablet Discontinued 100 MG PO time June 05, 2024 1:00am June 22, 2024 8:08amStart: 03-28-2024 End: 37-16-3062uiaQIYcbo (Desyrel) 50 MG tablet 03/28/2024 ActiveStart: 12-31-2023 End: 77-49-3150ozah 0.5-1 tablets by mouth once daily at bedtimeTrazodone 50 mg tablet Discontinued 0 .ROUTE .COMPLEX December 31, 2023 1:35pm April 07, 2024 6:45pm TAKE 1/2 - 1 TABLET BY MOUTH EVERYDAY AT BEDTIMEStart: 12-31-2023 End: 45-69-7162srob 0.5-1 tablets by mouth once daily at bedtime as needed Trazodone 50 mg tablet Discontinued 50 MG PO Daily at bedtime as needed December 31, 2023 12:00am December 31, 2023 1:35pm 1/2 to 1 tabletStart: 03-26-2023 End: 25-41-4758znbh 1 tablet by mouth once daily at bedtime as neededTrazodone 50 mg tablet Discontinued 50 MG PO Daily at bedtime as needed for sleeplessness March 26, 2023 1:00am April 19, 2023 3:08pm Completed/Discontinued Medications MedicationDrug Class(es)DatesSig (Normalized)Sig (Original)aluminum hydroxide 40 mg/ml / magnesium hydroxide 40 mg/ml / simethicone 4 mg/ml oral suspension (20 sources)Start: 04-15-2023 End: 05-53-9970mady 1 mL by mouth every four hours as needed for gastroesophageal reflux diseaseAlum-Mag Hydroxide-Simeth (Mag-Al Plus) 200-200-20 mg/5 mL Suspension Discontinued 30 ML PO Q4H as needed for Heartburn 0 April 15, 2023 1:00am April 19, 2023 3:08pmaspirin 81 mg delayed release oral tablet (20 sources)Platelet Aggregation Inhibitor, Nonsteroidal Anti-inflammatory Drug Start: 37-62-2581cuhk 1 tablet by mouth once dailyAspirin 81 mg Tablet,Delayed Release (Dr/Ec) Active 81 MG PO Daily April 09, 2023 1:00am On Hold: HOLD until hematoma resolves Complies with drug therapyAspir-Low Activebaclofen 20 mg oral tablet (20 sources)gamma-Aminobutyric Acid-ergic AgonistStart: 09-14-2023 End: 34-39-4801lcjq 1 tablet by mouth once daily at bedtimeBaclofen 20 mg tablet Discontinued 0 .ROUTE .COMPLEX 90 June 02, 2024 8:24am November 14, 2024 3: 26pm TAKE 1 TABLET BY MOUTH EVERYDAY AT BEDTIMEStart: 06-03-2020 End: 30-69-8264ehwx 1 tablet by mouth once daily at bedtimeBaclofen 20 mg tablet Discontinued 20 MG PO Daily at bedtime August 12, 2023 12:00am August 11 7:49pmComment on above:Take 1 tablet by mouth daily at bedtime.carvedilol 6.25 mg oral tablet (20 sources)alpha-Adrenergic Omi, beta-Adrenergic BlockerStart: 11-02-2024 End: 30-68-9659ckdj 1 tablet by mouth twice daily at mealtimeCarvedilol (Coreg) 6.25 mg tablet Discontinued 6.25 MG PO Twice daily November 02, 2024 12:00am November 14, 2024 3:26pm must administer with a meal/foodStart: 06-05-2024 End: 35-77-8022vqgi 1 tablet by mouth twice daily at mealtimeCarvedilol 3.125 mg Tablet Discontinued 3.125 MG PO Twice daily with meals 60 June 05, 2024 1:00am June 29, 2024 11:07amStart: 06-16-2023 End: 13-43-8578zmvl 1 tablet by mouth twice dailyCarvedilol 6.25 mg tablet Discontinued 0 .ROUTE .COMPLEX 180 June 02, 2024 8:24am June 05, 2024 2:27pm TAKE 1 TABLET BY MOUTH TWICE A DAYStart: 06-18-2016 End: 15-39-5595fhzq 1 tablet by mouth twice dailyCarvedilol 6.25 mg tablet Discontinued 6.25 MG PO Twice daily October 04, 2020 12:00am June 2:53pmComment on above:Take 6.25 mg by mouth twice daily with meals.cephalexin 500 mg oral capsule (20 sources)Cephalosporin AntibacterialStart: 10-09-2021 End: 72-20-2124wegi 1 capsule by mouth three times dailyCephalexin 500 mg capsule Discontinued 500 MG PO Three times daily October 09, 2021 12:00am March 16, 2022 11:56amcyclobenzaprine hydrochloride 10 mg oral tablet (20 sources)Muscle RelaxantStart: 04-15-2023 End: 70-53-0867oqtm 1 tablet by mouth every eight hours as needed for muscle spasmsCyclobenzaprine 10 mg tablet Discontinued 10 MG PO Every 8 hours as needed for Spasms 01 03April 19, 2023 3:07pm September 07, 2023 7:30amStart: 04-01-2022 End: 54-45-9253cxnf 1 tablet by mouth three times daily as needed for muscle spasmsCyclobenzaprine 10 mg tablet Discontinued 10 MG PO Three times daily as needed for back spasms April 01, 2022 1:00am March 26, 2023 2:36pm Start: 10-09-2021 End: 47-80-9989jidv 1 tablet by mouth three times daily as needed for muscle spasmsCyclobenzaprine 10 mg tablet Discontinued 10 MG PO Three times daily as needed for back spasms October 09, 2021 12:00am March 16, 2022 11:58am docusate sodium 50 mg / sennosides, longterm 8.6 mg oral tablet (20 sources)Start: 04-15-2023 End: 70-93-1772dter 2 tablets by mouth twice dailySennosides-Docusate Sodium 8.6-50 mg Tablet Discontinued 2 TAB PO Twice daily April 3:07pm April 07, 2024 6:39pmdoxycycline monohydrate 100 mg oral capsule (20 sources)Tetracycline-class DrugStart: 03-28-2024 End: 43-30-6218irwk 1 capsule by mouth twice dailyDoxycycline Monohydrate 100 mg capsule Discontinued 100 MG PO Twice daily April 04, 2024 1:00amMay 12, 2024 8:01pmStart: 11-01-2023 End: 59-86-7791wpzk 1 tablet by mouth twice dailyDoxycycline Hyclate 100 mg tablet Discontinued 100 MG PO Twice daily 19 02November 01, 2023 12:00am April 04, 2024 3:26pmenalapril maleate 5 mg oral tablet (20 sources)Angiotensin Converting Enzyme InhibitorStart: 11-14-2024 End: 12-22-3182rtia 1 tablet by mouth twice dailyEnalapril Maleate (Vasotec) 5 mg Tablet Discontinued 5 MG PO Twice daily November 14, 2024 12:00am January 09, 2025 4:14pm On Hold: HOLD given low BPs. May need to discontinue completely. F/u withPCPStart: 03-02-2023 End: 67-85-0100kavx 1 tablet by mouth twice dailyEnalapril Maleate 2.5 mg tablet Discontinued 2.5 MG PO Twice daily March 26, 2023 1:00am 2024 2:49pm On Hold: Resume on 06/12/24.ferrous sulfate 324 mg delayed release oral tablet (4 sources)Start: 11-30-2024 End: 03-39-1226olor 1 tablet by mouth once dailyFerrous Sulfate 324 mg (65 mg iron) Tablet,Delayed Release (Dr/Ec) Discontinued 324 MG PO Daily 0 November 30, 2024 12:00am January 11, 2025 4:19pmfluconazole 200 mg oral tablet (5 sources)Azole AntifungalStart: 11-14-2024 End: 96-47-4711wefq 1 tablet by mouth once dailyFluconazole 200 mg tablet Discontinued 200 MG PO Daily November 14, 2024 12:00am November 30, 2024 10:32am hydroCHLOROthiazide 25 mg oral tablet (20 sources)Thiazide DiureticStart: 04-17-2020 End: 40-39-9629lvok 1 tablet by mouth once dailyHydrochlorothiazide 25 mg tablet Discontinued 25 MG PO Daily October 04, 2020 12:00am April 19, 2023 3:08pm End: 78-50-9618uhyv 1 capsule by mouth once dailyhydroCHLOROthiazide (Microzide) 12.5 mg capsule Take 1 capsule (12.5 mg) by mouth once daily. 0 03/02/2023 Discontinued (Therapy completed)Comment on above:Take 25 mg by mouth once daily. hydrocortisone 25 mg/ml topical lotion (4 sources)CorticosteroidStart: 11-30-2024 End: 75-32-3234Loglfpihhpclpq 2.5 % Lotion Discontinued 1 APPLIC TOPICAL Four times daily as needed for itching 0 November 30, 2024 12:00am January 11, 2025 4:19pmiv contrast (will be provided with radiology test) (3 sources)Start: 05-09-2020 End: 66-66-1695hj contrast (will be provided with radiology test) [...] 0 05/09/2020 06/22/2023 Discontinued (Discontinued by Patient)Start: 95-39-4116ic contrast (will be provided with radiology test) [...] mg/mg topical ointment (4 sources)Start: 11-30-2024 End: 32-94-4513Pxis A And D-White Pet-Lanolin Ointment Discontinued 1 APPLIC TOPICAL Twice daily 0 November 302:00am January 11, 2025 4:21pm latanoprost 0.05 mg/ml ophthalmic solution (20 sources)Prostaglandin AnalogStart: 10-04-2020 End: 35-71-9107loif 1 drop(s) into the eye(s) once dailyLatanoprost 0.005 % drops Discontinued 1 DROPS EYE-BOTH Daily October 04, 2020 12:00am March 16, 2022 11:59amStart: 10-04-2020 End: 42-88-6403vulu 1 drop(s) into the eye(s) once dailyLatanoprost 0.005 % drops Discontinued 1 DROPS EYE-BOTH Daily October 04, 2020 12:00am March 16, 2022 11:59amStart: 10-04-2020 End: 00-61-4307oiht 1 drop(s) into the eye(s) once dailyLatanoprost Discontinued 1 DROPS EYE-BOTH Daily October 04, 2020 12:00am March 16, 2022 11:59amStart: 11-18-2019 End: 43-84-3488enph 1 drop(s) into the eye(s) once dailylatanoprost (XALATAN) 0.005 % ophthalmic solution INSTILL 1 DROP INTO BOTH EYES EVERY DAY DIRECTED 0 11/18/2019 06/23/2023 Discontinued (Discontinued by Patient) End: 82-12-0455balx 1 drop(s) into the eye(s) at bedtimelatanoprost [...] (20 sources)Angiotensin Converting Enzyme InhibitorStart: 07-03-2024 End: 35-08-6343zise 1 tablet by mouth once dailyLisinopril 2.5 mg tablet Discontinued 2.5 MG PO Daily 90 90 August 21, 2024 9:08am November 1453:26pm End: 42-88-3735hvxnesuhzk 5 MG tablet Take by mouth Daily 10/23/2024 Discontinued (Therapy completed)LISINOPRIL ORAL Take by mouth. Activemagnesium hydroxide 80 mg/ml oral suspension (20 sources)Start: 04-15-2023 End: 06-17-1948zyah 1 mL by mouth at bedtime as needed for constipationMagnesium Hydroxide (Milk Of Magnesia) 400 mg/5 mL Suspension Discontinued 30 ML PO Bedtime as needed for Constipation 0 April 15, 2023 1:00am April 19, 2023 3:08pmStart: 04-15-2023 End: 79-37-2710tgmy 1 mL by mouth at bedtime as needed for constipationMagnesium Hydroxide (Milk Of Magnesia) 400 mg/5 mL Suspension Discontinued 30 ML PO Bedtime as needed for Constipation 0 April 15, 2023 1:00am April 19, 2023 3:08pmStart: 04-15-2023 End: 74-46-8683ywpm 1 mL by mouth at bedtime as needed for constipationMagnesium Hydroxide (Milk Of Magnesia) 400 mg/5 mL Suspension Discontinued 30 ML PO Bedtime as needed for Constipation 0 April 15, 2023 12:00am April 19, 2023 2:08pmStart: 04-15-2023 End: 18-54-4610gjdg 1 mL by mouth at bedtimeMagnesium Hydroxide (Milk Of Magnesia) 400 mg/5 mL Suspension Discontinued 30 ML PO Bedtime 0 April 15, 2023 1:00am April 19, 2023 3:08pmStart: 04-15-2023 End: 85-98-6113twym 1 mL by mouth at bedtimeMagnesium Hydroxide (Milk Of Magnesia) 400 mg/5 mL Suspension Discontinued 30 ML PO Bedtime 0 April 15, 2023 12:00am April 19, 2023 2:08pmmagnesium oxide 400 mg oral tablet (5 sources)Start: 11-14-2024 End: 19-53-4080fjby 1 tablet by mouth once dailyMagnesium Oxide 400 mg (241.3 mg magnesium) Tablet Discontinued 400 MG PO Daily 0 November 14, 2024 12:00am January 11, 2025 4:19pmmethylPREDNISolone 4 mg oral tablet (15 sources)CorticosteroidStart: 06-29-2024 End: 64-53-3979kphq 1 tablet by mouth onceMethylprednisolone (Medrol (Jeremy)) 4 mg tablets,dose pack Discontinued 0 PO per package directions June 29, 2024 1:00am July 24, 2024 11:16am PO PER PKG DIR for 6 days End: 30-50-5959yxuk 1 tablet by mouth in the morningmethylPREDNISolone (Medrol) 4 MG tablet Take 4 mg by mouth in the morning. 03/08/2024 Discontinued (Therapy completed)metOLazone 2.5 mg oral tablet (20 sources)Thiazide-like DiureticStart: 03-28-2024 End: 59-06-7240mkcu 1 tablet by mouth once dailyMetolazone 2.5 mg tablet Discontinued 2.5 MG PO Daily April 04, 2024 1:00am July 03, 2024 2:51pm On Hold: Resume on 06/12/24.24 hr mirabegron 25 mg extended release oral tablet (10 sources)beta3-Adrenergic AgonistStart: 07-04-2024 End: 39-48-4341puwd 1 tablet by mouth once dailyMirabegron (Myrbetriq) 25 mg tablet extended release 24 hr Discontinued 25 MG PO Daily July 04, 2024 1:00am July 06, 2024 12:58pm24 hr oxybutynin chloride 15 mg extended release oral tablet (20 sources)Cholinergic Muscarinic AntagonistStart: 03-16-2022 End: 05-62-1644lxze 1 tablet by mouth once dailyOxybutynin Chloride 15 mg tablet extended release 24hr Discontinued 15 MG PO Daily March 16, 2022 1:00am March 26, 2023 2:38pmoxyCODONE hydrochloride 5 mg oral tablet (20 sources)Opioid AgonistStart: 04-15-2023 End: 83-66-9322qnup 1 tablet by mouth every six hours as needed for pain Oxycodone 5 mg tablet Discontinued 5 MG PO Every 6 hours as needed for Pain (Scale Score 7-10) 20 5December 2022September 07, 2023 7:31amStart: 04-15-2023 End: 49-03-0665hrhf 2 tablets by mouth every six hours as needed for pain Oxycodone 5 mg tablet Discontinued 10 MG PO Every 6 hours as needed for Pain Scale 7-10 April 15, 2023 5:33pm April 19, 2023 3:08pmStart: 04-15-2023 End: 73-94-2260jkuo 10 mg by mouth every six hoursOxycodone Discontinued 10 MG PO Every 6 hours April 15, 2023 5:33pm April 19, 2023 3:08pmStart: 04-01-2022 End: 31-49-6512atvp 5-10 mg by mouth every six hours as needed for painOxycodone 5 mg tablet Discontinued 5 - 10 MG PO Q6H as needed for Pain 40 8 April 01, 2022 March 26, 2023 2:38pmStart: 10-09-2021 End: 96-93-3287wgnk 5-10 mg by mouth every six hours as needed for painOxycodone 5 mg Tablet Discontinued 5 - 10 MG PO Q6H as needed for Pain 40 8 October 09, 20212021 12:00pmpsyllium 3400 mg powder for oral suspension (4 sources)Start: 11-30-2024 End: 59-91-1114Jidnhkso Husk (Metamucil Fiber (Aspartame)) 3.4 gram Powder In Packet Discontinued 1 PACKET PO Daily 0 November 30, 2024 12:00am January 11, 2025 4:20pmsulfamethoxazole 800 mg / trimethoprim 160 mg oral tablet (20 sources)Dihydrofolate Reductase Inhibitor Antibacterial, Sulfonamide AntimicrobialStart: 49-43-4135uqbb 1 tablet by mouth every twelve hoursBactrim DS 800-160 MG 1 tablet Orally Twice a day for 5 days May, Not-Taking/PRN Start: 04-01-2022 End: 36-87-0807hqmf 1 tablet by mouth every twelve hoursSulfamethoxazole- Trimethoprim (Bactrim Ds) 800-160 mg tablet Discontinued 1 TAB PO Q12H 2021 1:00am March 26, 2023 2:39pmtorsemide 20 mg oral tablet (20 sources)Loop DiureticStart: 07-03-2024 End: 12-54-8476umip 1 tablet by mouth every other dayTorsemide 20 mg tablet Discontinued 20 MG PO .QOD July 03, 2024 2:51pm September 18, 2024 12:49pmStart: 02-24-2024 End: 18-27-3755oaro 1 tablet by mouth once dailyTorsemide 10 mg tablet Discontinued 10 MG PO Daily April 07, 2024 1:00am May 12, 2024 3:28pm On Hold: Resume on 04/16/24. Please hold until seen by your PCP/cardiology. Start: 03-02-2023 End: 25-47-7663cpvx 1 tablet by mouth once dailyTorsemide 20 [...] [Impaired mobility and activities of daily living]Onset: 169306-48-8061BwmtxfufOxrqvol disorders (6 sources)Anxiety state; Translations: [Generalized anxiety disorder]Onset: 856458-63-1193FvbzjrlKzpkbt of breast (20 sources)Malignant neoplasm of female breast; Translations: [Malignant neoplasm of unspecified site of left female breast]Onset: 43-15-1711Hfmcbsn Cataract (20 sources)After-cataract of bilateral eyes; Translations: [Other secondary cataract, bilateral]Onset: 282537-98-5717BmsqrjvAynkpxl kidney disease (20 sources)Chronic kidney disease; Translations: [Chronic kidney disease, unspecified]Onset: 844126-97-0694GukjpccHntfcdy kidney disease (5 sources)Chronic kidney disease; Translations: [Chronic kidney disease, stage 3b]Onset: 98-81-9800Kmbmmqgdaz disorders (20 sources)Left bundle branch block; Translations: [Other left bundle branch block]Onset: 196538-70-4888HxflgyqTxknrznobi heart failure; nonhypertensive (20 sources)Chronic diastolic heart failure; Translations: [Chronic diastolic (congestive) heart failure]Onset: 563874-95-4321HfztzegKimgwzo on above: Echo: LVEF 25-30%, normal RV size/function - 10/2024Deficiency and other anemia (20 sources)Anemia, unspecified; Translations: [Anemia, unspecified]Onset: 250496-20-7387HyivivmfLocsojflw of lipid metabolism (20 sources)Hypercholesterolemia; Translations: [Pure hypercholesterolemia, unspecified]Onset: 207044-88-6320AphttpcS Codes: Adverse effects of medical drugs (2 sources)Adverse effect of antineoplastic and immunosuppressive drugs, initial encounter; Translations: [ADVRS EFF ANTINEOPL IMMUNOSUP INIT]Onset: 02-09-2022 EpisodicEsophageal disorders (20 sources)Gastroesophageal reflux disease; Translations: [Gastro-esophageal reflux disease without esophagitis]Onset: 763085-87-9823WwahbizGysywclkj hypertension (20 sources)Essential (primary) hypertension; Translations: [Essential hypertension]Onset: 601050-50-8841XpvqpdaPcmigplla hypertension (2 sources)Essential hypertensionOnset: 02-02-9930Axpxzrxdwwakeh ulcer (except hemorrhage) (1 source)Peptic ulcer without hemorrhage, without perforation AND without obstruction; Translations: [Pepticulcer, unspecified site, unspecified as acute or chronic, without mention of hemorrhage, perforation, or obstruction]Chronic Genitourinary symptoms and ill-defined conditions (5 sources)Dysuria; Translations: [Dysuria]EpisodicGlaucoma (20 sources)Primary open angle glaucoma; Translations: [Primary open-angle glaucoma, bilateral, mild stage]Onset: 450273-04-7339ZrqiomaTjlbdvjb; including migraine (20 sources)Chronic tension-type headache; Translations: [Chronic tension-type headache, intractable]ChronicHeadache; including migraine (20 sources)Headache; Translations: [Headache, unspecified]Onset: 05-04-2014 46-08-4590MckeqsujQcmvo valve disorders (20 sources)Mitral valve regurgitation; Translations: [Mitral valve disorders] Onset: 213917-10-2397FshlgqxJadhssdljpde with complications and secondary hypertension (20 sources)Chronic kidney disease due to hypertension; Translations: [Hypertensive chronic kidney disease withstage 1 through stage 4 chronic kidney disease, or unspecified chronic kidney disease]Onset: 13-03-9370Apuporm Immunizations and screening for infectious disease (6 sources)Patient encounter status; Translations: [Other specified vaccination] Resolved: 38-57-9135WrtclwavWihrpjuanyam; infection of eye (except that caused by tuberculosis or sexually transmitteddisease) (20 sources)Keratoconjunctivitis sicca; Translations: [Keratoconjunctivitis sicca, not specified as Sjogren's, bilateral]Onset: 93-92-163766949312-78-0292Jjbpptk Malignant neoplasm without specification of site (18 sources)Malignant neoplastic disease; Translations: [Other malignant neoplasm without specification of site]Onset: hronic Menopausal disorders (1 source)Primary ovarian failure; Translations: [Other primary ovarian failure] Onset: 77-63-0487YrcvfezBgoopgepiwenj mental health disorders (20 sources)Primary insomnia; Translations: [Primary insomnia]ChronicMood disorders (20 sources)Mild depression; Translations: [Mild depression]Onset: 01-31-2014 94-98-5376GslmrvdIntdvfh (17 sources)Onychomycosis due to dermatophyte ; Translations: [Tinea unguium] Onset: 250883-26-2832XaaoacluHkfsocablcqib gastroenteritis (17 sources)Colitis; Translations: [Noninfective gastroenteritis and colitis, unspecified]Onset: 410999-09-0541QamfkpmhNbnigbbbbex deficiencies (20 sources)Vitamin D deficiency; Translations: [Vitamin D deficiency, unspecified]ChronicOsteoarthritis (20 sources)Arthropathy of left hip joint; Translations: [Unilateral primary osteoarthritis, left hip]Onset: 11-16-2007 Resolved: 65-01-5986UipkwmbEjmdczphohzn (20 sources)Senile osteoporosis; Translations: [Age-related osteoporosis without current pathological fracture]Onset: 08-07-2021 Resolved: 62-51-9591YzveujgUdrjx acquired deformities (20 sources)Spondylolysis; Translations: [Spondylolysis, lumbar region]Episodic Other aftercare (20 sources)H/O: high risk medication; Translations: [Other long-term (current) drug therapy]EpisodicOther aftercare (1 source)Long-term current use of drug therapy; Translations: [Other long term acute care registered nurse (current) drug therapy]EpisodicOther aftercare (15 sources)Drug therapy finding; Translations: [care home (current) use of opiate analgesic]26-56-6788NknajnsxWdbfw aftercare (2 sources)[employer] 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 (current) use of opiate analgesic; Translations: [Long-term (current) use of other medications]95-20-1834EmddxwnnOzqgw and ill-defined heart disease (19 sources)Left ventricular systolic dysfunction; Translations: [Heart disease, unspecified]Onset: 599272-23-2879SmwnufiFadbg and ill-defined heart disease (4 sources)Other ill-defined heart diseases; Translations: [Other ill-defined heart diseases]Onset: 65-04-2339HtebpuvJauig and ill-defined heart disease (2 sources)Heart disease, unspecified; Translations: [Heart disease, unspecified]Onset: 66-35-9717LpqdgrpYzffl bone disease and musculoskeletal deformities (1 source)Other specified disorders of bone density and structure, left forearm EpisodicOther circulatory disease (8 sources)Orthostatic hypotension; Translations: [Orthostatic hypotension] Onset: 150533-07-0702CakgrjkpXylmq circulatory disease (12 sources)Low blood pressure; Translations: [Hypotension, unspecified] 46-78-5079AtrpdsplEiwzl circulatory disease (1 source)Hypotension, unspecified; Translations: [Hypotension, unspecified] Onset: 70-35-4164JmeswxqjKgocf congenital anomalies (1 source)Congenital spondylolysis of lumbosacral region; Translations: [Congenital spondylolysis, lumbosacral region]Onset: 39-99-0965GiupuhpAlgxt connective tissue disease (1 source)Presence of artificial knee joint, bilateral; Translations: [PRESENCE ARTIFICIAL KNEE JNT BILAT]Onset: 80-05-2072ArcylxwBsgas connective tissue disease (20 sources)Cramp in lower limb; Translations: [Sleep related leg cramps]Onset: 588847-03-8903QukxmzhKmyrd connective tissue disease (7 sources)Sleep related leg cramps; Translations: [Sleep related leg cramps] 57-51-6256DbstmstZxsoe connective tissue disease (7 sources)History of total knee arthroplasty; Translations: [Presence of left artificial knee joint]65-97-0370BggsgxnXbhfn connective tissue disease (10 sources)Presence of left artificial knee joint; Translations: [Knee joint replacement]Onset: 932602-16-5304ZtsqifvYnkhq connective tissue disease (12 sources)History of left total knee replacement; Translations: [Presence of left artificial knee joint]Onset: 041424-18-7782VwkmfrqNztsr connective tissue disease (20 sources)Arthrodesis status; Translations: [Arthrodesis status]EpisodicOther connective tissue disease (7 sources)Foot pain; Translations: [Pain in left foot]00-23-4924TgviqarlVkspc connective tissue disease (7 sources)Pain in left foot; Translations: [Pain in limb]31-74-3127Dzssiism Other connective tissue disease (1 source)Pain in both feet; Translations: [Pain in right foot]05-16-2024 EpisodicOther connective tissue disease (8 sources)Other bursitis of knee, left knee; Translations: [Pes anserinus tendinitis or bursitis]17-60-5378JzwobcylAshpw connective tissue disease (4 sources)Pain in toe; Translations: [Pain in right toe(s)]57-91-3319Hnhmavdg Other connective tissue disease (2 sources)Capsulitis; Translations: [Other enthesopathies, not elsewhere classified]06-83-7665IxunhvyoWenij connective tissue disease (9 sources)Weakness of right hand; Translations: [Other symptoms and signs involving the musculoskeletal system]84-52-4800HiwzjjlmZznsx connective tissue disease (2 sources)Subacromial impingement; Translations: [Impingement syndrome of right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 mL/min/{1.73_m2}NormalThe [facility] Physician GroupComment on above:Performed By: #### JOSE CBCNO ####[address] [facility] [place], [place] [address]RUSLkdaqcm [Mass/volume] in Serum or PlasmaOrdered By: Danyelle Mathews on 31-52-8199Nzxjmeg [Mass/Vol]10.4 mg/dLHigh8.6-10.3FWooster Community HospitalComment on above:Result Comment: PERFORMED BY:[address] [address] [address] [place] [phone] MEDICAL JACKELYN VÁZQUEZ M.D.Performed By: #### JOSE CBCNO ####[place] [address] Micaelapending sale to [place] health[place] [address]KBKHailos dioxide, total [Moles/volume] in Serum or PlasmaOrdered By: Danyelle Mathews on 30-44-5009IW2 [Moles/Vol]28.9 mmol/BBnclfg22.0-31.0S[facility] Memorial HospitalComment on above:Performed By: #### JOSE, CBCNO ####[address]ap[address] [place] [address]PPOHvccaapv [Moles/volume] in Serum or Plasma Ordered By: Danyelle Mathews on 53-09-4316Hfefgyzy [Moles/Vol]101 mmol/UExavgg11-940 [facility] HospitalComment on above:Performed By: #### JOSE, CBCNO ####[facility] [place], [place] [address]AUJ Creatinine [Mass/volume] in Serum or PlasmaOrdered By: Danyelle Arringtonifeanyi on 44-87-4075Fdkynbduyt [Mass/Vol]1.22 mg/dLHigh0.60-1.20S[facility] Memorial HospitalComment on above:Performed By: #### JOSE, CBCNO ####[address] [place], [place] [address]PBNPpuvexdyney distribution width [Ratio] by Automated countOrdered By: Danyelle Arringtonifeanyi on 49-61-2402Mbgqmvkdqzg distribution width (RBC) [Ratio]15.8 %High11.9-15.3FWooster Community HospitalComment on above:Performed By: #### JOSE CBCNO ####[address] [place], [place] [address]YBYJvmppezlpefi [#/volume] in Blood by Automated countOrdered By: Danyelle Arringtonifeanyi on 58-65-3635HFY (Bld) [#/Vol] 3.97 10*6/uLNormal3.60-5.00S[facility]by Memorial HospitalComment on above: Performed By: #### JOSE CBCNO ####[address] [place], [place] [address]MVBVvpllmmlpk filtration rate [Volume Rate/Area] in Serum, Plasma or Blood by CreatinineOrdered By: Danyelle Arringtonifeanyi on 01-11-2025 Glomerular filtration rate [Volume Rate/Area] in Serum, Plasma or Blood by Qfzjvaezxc99.279 mL/MinShelby Memorial HospitalGlucose [Mass/volume] in Serum or PlasmaOrdered By: Danyelle Arringtonifeanyi on 90-91-1227Qowhhnh [Mass/Vol]86 mg/dL Vxbvet33-378VehqzuwtvShelby Memorial HospitalComment on above:ADA recommended reference rangeRandom [...] recommended reference rangePerformed By: #### BMP, CBCNO ####[address] [place], [place] [address]XWZNbmyxktwpy [Volume Fraction] of Blood by Automated countOrdered By: Danyelle Mathews on 77-30-7115Oiajabgton (Bld) [Volume fraction]35.5 %Normal 34.0-46.4FWooster Community HospitalComment on above:Performed By: #### BMP, CBCNO ####[address] [address] USAHemoglobin [Mass/volume] in BloodOrdered By: Danyelle Mathews on 01-11-2025 Hemoglobin (Bld) [Mass/Vol]11.7 g/dLLow11.8-15.4FWooster Community HospitalComment on above:Performed By: #### BMP, CBCNO ####[address] [address]SLKLjsuwshs CBC Without Diffon 15-23-9619Nirs Corpuscular HGB Conc32.9 g/nJWjpkgj80.0-35.0The [facility] Physician GroupComment on above:Performed By: #### JOSE, CBCNO ####[address] [address]PZLSqnab Blood Count7.9 [CFU]/mLNormal3.8-11.6The [facility] Physician [facility] Care UnitComment on above:Performed By: #### BMP, CBCNO ####[address] [address]AUYIgpwvdemth [#/volume] corrected for nucleated erythrocytes in Blood by Automated counOrdered By: Danyelle Mathews on 30-65-4997IHM corrected for nucl RBC Auto (Bld) [#/Vol]7.9 10*3/uL3.8-11.6FWooster Community HospitalMCH [Entitic mass] by Automated countOrdered By: Danyelle Mathews on 47-16-7020ZIN (RBC) [Entitic mass]29.4 emVllupj61.7-34.3FWooster Community HospitalComment on above:Performed By: #### JOSE, CBCNO ####[address] [place], [place] [address]AOLJQKQ Auto (RBC) [Mass/Vol]Ordered By: Danyelle Mathews on 49-35-9295IMTM (RBC) [Mass/Vol]32.9 g/dL32.0-35.0S[facility] Memorial HospitalMCV [Entitic volume] by Automated countOrdered By: Danyelle Mathews on 79-42-7891ZPX (RBC) [Entitic vol]89.4 jTYiwcow83-556UhliyfoybShelby Memorial HospitalComment on above:Performed By: #### JOSE, CBCNO ####[address] [place], [place] [address]QUVLw Panel InformationOrdered By: Danyelle Mathews on 67-86-3928Ohfapezs Creatinine Clearance (ChemN/[facility]edo HospitalPlatelet mean volume [Entitic volume] in Blood by Automated countOrdered By: Danyelle Mathews on 87-56-0698Dnrckqpd mean volume (Bld) [Entitic vol]8.6 fLNormal6.3-10.7FWooster Community HospitalComment on above:Result Comment: PERFORMED BY:[address] [place], [place] [phone] MEDICAL DIRECTORCARLOS VÁZQUEZ M.D.Performed By: #### JOSE, DERICKNO ####[address] [place], [place] [address]NCKAcidvvupe [#/volume] in Blood by Automated count Ordered By: Danyelle Mathews on 72-22-5060Ntfijonmz (Bld) [#/Vol]336 10*3/uLNormal 150-450S[facility] HospitalComment on above:Performed By: #### JOSE, CBCNO ####[address] [place], [place] [address]PPH Potassium [Moles/volume] in Serum or PlasmaOrdered By: Danyelle Mathews on 75-24-8850Hwwxcxjhb [Moles/Vol]4.8 mmol/LNormal3.5-5.1FWooster Community HospitalComment on above:Performed By: #### WOODY GARCIA ####[place] [address] [address] [address] Hinojosapending sale to novant healthk[place]leen[place], [place] [address]OWXHepzm or plasma anion gap determinationOrdered By: Danyelle Mathews on 46-66-7958Fxkat gap [Moles/Vol]12.9 mmol/LNormal6.0-15.0[facility] HospitalComment on above:Performed By: #### JOSE CBCNO ####[address] [address] [address] Hinojosapending sale to [place], [place] [address]VRZHlcgjr [Moles/volume] in Serum or PlasmaOrdered By: Danyelle Mathews on 74-97-2732Cygban [Moles/Vol]138 mmol/XMxlwzy599-598UhmgphkblShelby Memorial HospitalComment on above:Performed By: #### JOSE CBCNO ####[address] [place] [address] [address] Micaelap[address] sale to [place], [place] [address]PZOHokr nitrogen [Mass/volume] in Serum or PlasmaOrdered By: Danyelle Mathews on 96-31-0787Hhrr nitrogen [Mass/Vol]27 mg/dLHigh7-25S[facility] HospitalComment on above:Performed By: #### WOODY GARCIA ####[address] [address] [address] Hinojosapending sale to [place], [place] [address]QHBPoxud Metabolic Panelon 27-44-2131Kydkn gap [Moles/Vol]13.5 mmol/LNormal 6.0-15.0The [facility] Physician GroupComment on above:Performed By: #### BMP ####[address] Hinojosapending sale [place] [address] USACalcium [Mass/Vol]8.1 mg/dLLow8.6-10.3The [facility] Physician GroupComment on above: Performed By: #### BMP ####[address] Micaelapending sale [place] [address] USAChloride [Moles/Vol]103 mmol/REmhdcu52-895Fri [facility] Physician GroupComment on above:Performed By: #### BMP ####[address] Micaelapending sale [place] [address] USACO2 [Moles/Vol]26.8 mmol/NMjvxer28.0-31.0The [facility] Physician GroupComment on above:Performed By: #### BMP ####[address] [address] USACreatinine [Mass/Vol]0.73 mg/dLNormal0.60-1.20ThValor Health Physician [facility] Comment on above:Performed By: #### BMP ####[address] [address] USACreatinine Clr Calc Dqocshmj12.02NormBroward Health Imperial Point Physician GroupComment on above:Result Comment: PERFORMED BY:[address] ABHISHEKGaloRadhaHUI, [place] [phone] MEDICAL DIRECTORCARLOS VÁZQUEZ M.D.Performed By: #### BMP ####[address] [address] USAGFR/1.73 sq M.predicted MDRD (S/P/Bld) [Vol rate/Area]mL/min/{1.73_m2}NormalThe [facility] Physician GroupComment on above:Performed By: #### BMP ####[address] [address] USAGlucose [Mass/Vol]82 mg/dL Cfregb37-904Mfp [facility] Physician GroupComment on above:Result Comment: Random Glucose Reference Range is dependent on time and content of last meal. Glucose of more than 200 mg/dL in a nonstressed, ambulatory subject supports the diagnosis of Diabetes Mellitus. ADA recommended reference rangePerformed By: #### BMP ####[address] [address] USAPotassium [Moles/Vol]4.3 mmol/LNormal3.5-5.1The [facility] Physician [facility] Comment on above:Performed By: #### BMP ####[address] [address] USASodium [Moles/Vol]139 mmol/HYlacrm766-373Vbn [facility] Physician [facility] Care UnitComment on above:Performed By: #### BMP ####[address] [address] USAUrea nitrogen [Mass/Vol]10 mg/dLNormal7-25The [facility] Physician GroupComment on above: Performed By: #### BMP ####[address] [address] USABasic Metabolic Panelon 49-76-5187Nlktl gap [Moles/Vol]14.6 mmol/LNormal6.0-15.0The [facility] Physician GroupComment on above:Order Comment: pt in PTPerformed By: #### BMP ####[address] [address] USACalcium [Mass/Vol]8.3 mg/dLLow 8.6-10.3The [facility] Physician GroupComment on above:Order Comment: pt in PT Performed By: #### BMP ####[address] [address] USAChloride [Moles/Vol]101 mmol/RUcpxlv53-949Pmu [facility] Physician GroupComment on above:Order Comment: pt in PTPerformed By: #### BMP ####[address] [address] USACO2 [Moles/Vol]25.7 mmol/XJkqavz65.0-31.0The [facility] Physician GroupComment on above:Order Comment: pt in PTPerformed By: #### BMP ####[address] [address] USACreatinine [Mass/Vol]0.68 mg/dLNormal0.60-1.20The [facility] Physician GroupComment on above:Order Comment: pt in PTPerformed By: #### BMP ####[address] [address] USACreatinine Clr Calc Fdbaashq89.02NormalThValor Health Physician GroupComment on above:Order Comment: pt in PTResult Comment: PERFORMED BY:[address] [address] [place], [place] [phone] MEDICAL JACKELYN VÁZQUEZ M.D.Performed By: #### BMP ####[address] [address] USAGFR/1.73 sq M.predicted MDRD (S/P/Bld) [Vol rate/Area]mL/min/{1.73_m2}Normal The [facility] Physician GroupComment on above:Order Comment: pt in PTPerformed By: #### BMP ####[address] [address] USAGlucose [Mass/Vol]112 mg/nYJmnh49-988Efa [facility] Comment on above:Order Comment: pt in PTResult Comment: Random Glucose Reference Range is dependent on time and content of last meal. Glucose of more than 200 mg/dL in a nonstressed, ambulatory subject supports the diagnosis of Diabetes Mellitus. ADA recommended reference rangePerformed By: #### BMP ####[address] [address] USAPotassium [Moles/Vol] 3.3 mmol/LLow3.5-5.1The [facility] Physician GroupComment on above:Order Comment: pt in PTPerformed By: #### BMP ####[address] [address] USASodium [Moles/Vol]138 mmol/WShpyvo288-847Fjl [facility] Physician GroupComment on above:Order Comment: pt in PTPerformed By: #### BMP ####[address] [address] USAUrea nitrogen [Mass/Vol]11 mg/dLNormal7-25The [facility] Comment on above:Order Comment: pt in PTPerformed By: #### BMP ####[address] [address] USABasic Metabolic Panel on 84-52-3951Hsnvz gap [Moles/Vol]Not performedNormal6.0-15.0The [facility] Physician GroupComment on above:Performed By: #### BMP ####[address] [address] USACalcium [Mass/Vol]8.0 mg/dLLow 8.6-10.3The [facility] Physician GroupComment on above:Performed By: #### BMP ####[address] [address] [place] Chloride [Moles/Vol]105 mmol/TOfphtk25-786Yrj [facility] Physician [facility] UnitComment on above:Performed By: #### BMP ####[address] [address] USACO2 [Moles/Vol]25.3 mmol/LEudzfe09.0-31.0The [facility] Physician GroupComment on above:Performed By: #### BMP ####[address] [address] USACreatinine [Mass/Vol] 0.66 mg/dLNormal0.60-1.20The [facility] Physician [facility] Care UnitComment on above:Performed By: #### BMP ####[address] [address] USACreatinine Clr Calc Afmfzfkt45.52NormalThe [facility] Comment on above:Result Comment: PERFORMED BY:[address] ABHISHEKGaloRdahaHUI, [place] [phone] MEDICAL JACKELYN VÁZQUEZ M.D.Performed By: #### BMP ####[address] [address] USAGFR/1.73 sq M.predicted MDRD (S/P/Bld) [Vol rate/Area]mL/min/{1.73_m2}NormalThe [facility] Physician [facility] Comment on above:Performed By: #### BMP ####[address] [address] USAGlucose [Mass/Vol]67 mg/iIZsv26-805Nag [facility] Physician GroupComment on above:Result Comment: Random Glucose Reference Range is dependent on time and content of last meal. Glucose of more than 200 mg/dL in a nonstressed, ambulatory subject supports the diagnosis of Diabetes Mellitus. ADA recommended reference rangePerformed By: #### BMP ####[address] [address] USA PotassiumNormal3.5-5.1The [facility] Physician GroupComment on above:Result Comment: Specimen hemolyzed, redraw requestedPerformed By: #### BMP ####[address] [address] USASodium Ctcmop001-013Smv [facility] Physician GroupComment on above:Result Comment: Specimen hemolyzed, redraw requestedPerformed By: #### BMP ####[address] [address] USAUrea nitrogen [Mass/Vol]10 mg/dLNormal7-e [facility] Physician GroupComment on above: Performed By: #### BMP ####[address] [address] USACT femur RT wo conon 04-77-5095DG femur RT wo con NormalSt. Joseph'S [facility] Physician [facility] Care UnitRedraw Potassiumon 61-18-1624Lneyqgnwn [Moles/Vol]3.4 mmol/LLow3.5-5.1The [facility] Physician GroupComment on above: Order Comment: PREVIOUS SPECIMEN HEMOLYZEDResult Comment: PERFORMED BY:[address] [place], [place] [phone] MEDICAL DIRECTORCARLOS VÁZQUEZ M.D.Performed By: #### REDRAW K, REDRAW NA ####[address] [address] USARedraw Sodiumon 32-34-6462Tdftui [Moles/Vol]141 mmol/MKmirep297-073Kyh [facility] Physician GroupComment on above:Order Comment: PREVIOUS SPECIMEN HEMOLYZED Performed By: #### REDRAW K, REDRAW NA ####[address] [address] USAUS arterial duplex LE RTon 94-23-6054HP arterial duplex LE RTNormalThMississippi State HospitalBasic Metabolic Panelon 45-73-8321Mkrwn gap [Moles/Vol]11.9 mmol/LNormal6.0-15.0The [facility] Physician GroupComment on above:Performed By: #### BMP, CBC ####[address] [place] [address] USACalcium [Mass/Vol]8.4 mg/dLLow 8.6-10.3The [facility] Physician GroupComment on above:Performed By: #### BMP, CBC ####[address] [address] [place] Chloride [Moles/Vol]104 mmol/WOgiyga31-374Bai [facility] Physician GroupComment on above:Performed By: #### BMP, CBC ####[place] [address] USACO2 [Moles/Vol]28.2 mmol/JJxaqxq35.0-31.0The [facility] Physician GroupComment on above:Performed By: #### BMP, CBC ####[address] [address] [place] Creatinine [Mass/Vol]0.68 mg/dLNormal0.60-1.20The [facility] Comment on above:Performed By: #### BMP, CBC ####[place] [address] USACreatinine Clr Calc Dhuxdkvd87.12 NormalThe [facility] Physician GroupComment on above:Result Comment: PERFORMED BY:[address] [address] [place] [place]ZW[place], [place] [phone] MEDICAL JACKELYN VÁZQUEZ M.D.Performed By: #### BMP, CBC ####[address] [address] [place] GFR/1.73 sq M.predicted MDRD (S/P/Bld) [Vol rate/Area]mL/min/{1.73_m2}NormalThe [facility] Physician [facility] Care UnitComment on above:Performed By: #### BMP, CBC ####[address] [address] USAGlucose [Mass/Vol]84 mg/mNLkmyfw24-519Xpb [facility] Physician GroupComment on above: Result Comment: Random Glucose Reference Range is dependent on time and content of last meal. Glucose of more than 200 mg/dL in a nonstressed, ambulatory subject supports the diagnosis of Diabetes Mellitus. ADA recommended reference rangePerformed By: #### BMP, CBC ####[place] [address] USAPotassium [Moles/Vol]3.1 mmol/LLow3.5-5.1The [facility] Physician GroupComment on above:Performed By: #### BMP, CBC ####[place] [address] USASodium [Moles/Vol]141 mmol/NYxkgmv396-524Jvc [facility] Physician GroupComment on above: Performed By: #### BMP, CBC ####[place] [address] USAUrea nitrogen [Mass/Vol]9 mg/dLNormal7-25The [facility] Physician GroupComment on above:Performed By: #### BMP, CBC ####[address] Complete Blood Count Auto Diffon 43-81-8006Bsgwesmpx (Bld) [#/Vol]0.1 10*3/uL Normal0.0-0.2The [facility] Rehabilitation CenterComment on above:Result Comment: PERFORMED BY:[address] [place]IL[place], [place] [phone] MEDICAL DIRECTORCARLOS VÁZQUEZ M.D.Performed By: #### BMP, CBC ####[place] [address] USABasophils/100 WBC (Bld)1.3 %Normal.The [facility] Physician GroupComment on above:Performed By: #### BMP, CBC ####[place] [address] USAEosinophils (Bld) [#/Vol]0.2 10*3/uLNormal 0.0-0.45The [facility] Physician [facility] UnitComment on above:Performed By: #### BMP, CBC ####[place] [address] [place] Eosinophils/100 WBC (Bld)2.7 %Normal.The [facility] Physician GroupComment on above:Performed By: #### BMP, CBC ####[place] [address] USAErythrocyte distribution width (RBC) [Ratio]20.7 % High11.9-15.3The [facility] Physician GroupComment on above:Performed By: #### BMP, CBC ####[place] [address] USAHematocrit (Bld) [Volume fraction]26.9 %Low34.0-46.4The [facility] Physician GroupComment on above:Performed By: #### BMP, CBC ####[place] [address] USAHemoglobin (Bld) [Mass/Vol]9.1 g/dLLow 11.8-15.4The [facility] Physician GroupComment on above:Performed By: #### BMP, CBC ####[place] [address] [place] Lymphocytes (Bld) [#/Vol]1.1 10*3/uLNormal1.00-4.8The [facility] Comment on above:Performed By: #### BMP, CBC ####[place] [address] USALymphocytes/100 WBC (Bld)13.6 %Normal. The [facility] Physician GroupComment on above:Performed By: #### BMP, CBC ####[place] [address] USAMCH (RBC) [Entitic mass]29.9 pcVstixa74.7-34.3The [facility] Physician GroupComment on above:Performed By: #### BMP, CBC ####[place] [address] USAMCV (RBC) [Entitic vol]88.6 fJVxrusf94-514Ahs [facility] Physician GroupComment on above:Performed By: #### BMP, CBC ####[place] [address] USAMean Corpuscular HGB Conc33.7 g/hGCgkyam61.0-35.0The [facility] Physician GroupComment on above:Performed By: #### BMP, CBC ####[place] [address] USAMonocytes (Bld) [#/Vol]1.0 10*3/uLHigh0.0-0.8 The [facility] Physician GroupComment on above:Performed By: #### BMP, CBC ####[place] [address] [place] Monocytes/100 WBC (Bld)12.2 %Normal.The [facility] Physician GroupComment on above:Performed By: #### BMP, CBC ####[place] [address] USANeutrophils (Bld) [#/Vol]5.9 10*3/uLNormal1.8-7.7The [facility] Physician GroupComment on above:Performed By: #### BMP, CBC ####[place] [address] [place] Neutrophils/100 WBC (Bld)70.2 %Normal.The [facility] Physician GroupComment on above:Performed By: #### BMP, CBC ####[place] [address] USANRBC%0.1 /100{WBC}Normal0-0.5The [facility] Physician GroupComment on above:Performed By: #### BMP, CBC ####[place] [address] USAPlatelet mean volume (Bld) [Entitic vol]7.4 fLNormal6.3-10.7The [facility] Physician GroupComment on above: Performed By: #### BMP, CBC ####[place] [address] USAPlatelets (Bld) [#/Vol]640 10*3/sJWasa453-403Ufa [facility] Physician GroupComment on above:Performed By: #### BMP, CBC ####[place] [address] USARBC (Bld) [#/Vol]3.04 10*6/uLLow3.60-5.00The [facility] Physician GroupComment on above:Performed By: #### BMP, CBC ####[place] [address] USAWBC (Bld) [#/Vol]8.5 10*3/uLNormal3.8-11.6The [facility] Physician GroupComment on above:Performed By: #### BMP, CBC ####[place] [address] USAWhite Blood Count8.5 [CFU]/mLNormal3.8-11.6The [facility] Physician GroupComment on above:Performed By: #### BMP, CBC ####[place] [address] USAECG 12 lead ECGon 99-18-8610GVU 12 lead ECGNormalThe [facility]on Rehabilitation CenterBasic Metabolic Panelon 45-87-5090Jkhxo gap [Moles/Vol]15.7 mmol/LHigh6.0-15.0The [facility] Physician GroupComment on above: Performed By: #### DIFF CBC, BMP ####[place] [address] USACalcium [Mass/Vol]7.9 mg/dLLow8.6-10.3The [facility] Physician GroupComment on above:Performed By: #### DIFF CBC, BMP ####[place] [address] USAChloride [Moles/Vol] 101 mmol/POgohfb95-590Ohq [facility] Physician GroupComment on above:Performed By: #### DIFF CBC, BMP ####[place] [address] USACO2 [Moles/Vol]24.2 mmol/SPcxrhe12.0-31.0The [facility] Physician GroupComment on above:Performed By: #### DIFF CBC, BMP ####[place] [address] [place] Creatinine [Mass/Vol]0.72 mg/dLNormal0.60-1.20The [facility] Comment on above:Performed By: #### DIFF CBC, BMP ####[address] [place] [address] USACreatinine Clr Calc Uxfixrvm09.43 NormalThe [facility] Physician GroupComment on above:Result Comment: PERFORMED BY:[address] [place], [place] [phone] MEDICAL JACKELYN VÁZQUEZ M.D.Performed By: #### DIFF CBC, BMP ####[address] [place] [address] USAGFR/1.73 sq M.predicted MDRD (S/P/Bld) [Vol rate/Area]mL/min/{1.73_m2}Normal The [facility] Physician GroupComment on above:Performed By: #### DIFF CBC, BMP ####[address] [address] USAGlucose [Mass/Vol]70 mg/rPKriexm38-023Ame [facility] Physician GroupComment on above: Result Comment: Random Glucose Reference Range is dependent on time and content of last meal. Glucose of more than 200 mg/dL in a nonstressed, ambulatory subject supports the diagnosis of Diabetes Mellitus. ADA recommended reference rangePerformed By: #### DIFF CBC, BMP ####[address] [address] USAPotassium [Moles/Vol]3.9 mmol/LNormal3.5-5.1 The [facility] Physician GroupComment on above:Performed By: #### DIFF CBC, BMP ####[address] [address] USASodium [Moles/Vol]137 mmol/HZeeqnk203-079Rfv [facility] Physician GroupComment on above: Performed By: #### DIFF CBC, BMP ####[address] [address] USAUrea nitrogen [Mass/Vol]11 mg/dLNormal7-25The [facility] Physician GroupComment on above:Performed By: #### DIFF CBC, BMP ####[address] [address] USADiff and CBCon 91-27-2735Jjdezzodkvak Ql (Bld)MarkedNoFrye Regional Medical Center [facility] Physician GroupComment on above:Performed By: #### DIFF CBC, BMP ####[address] [address] USABand form neutrophils/100 WBC (Bld)3 %Normal0-5The [facility] Physician GroupComment on above:Performed By: #### DIFF CBC, BMP ####[address] [address] USAEosinophils/100 WBC (Bld)1 %Normal1-3The [facility] Physician Turning [facility] Comment on above:Performed By: #### DIFF CBC, BMP ####[address] [address] USAErythrocyte distribution width (RBC) [Ratio]20.3 %High11.9-15.3The [facility] Physician GroupComment on above: Performed By: #### DIFF CBC, BMP ####[address] [address] USAHematocrit (Bld) [Volume fraction]25.7 %Low34.0-46.4 [facility] Physician GroupComment on above:Performed By: #### DIFF CBC, BMP ####[address] [address] [place] Hemoglobin (Bld) [Mass/Vol]8.6 g/dLLow11.8-15.4The [facility] Physician [facility] Comment on above:Performed By: #### DIFF CBC, BMP ####[address] [address] USAHypochromasiaSlightNoFrye Regional Medical [facility] Physician GroupComment on above:Performed By: #### DIFF CBC, BMP ####[address] [address] [place] Lymphocytes/100 WBC (Bld)10 %Qcq22-88Oei [facility] Physician GroupComment on above:Performed By: #### DIFF CBC, BMP ####[address] [address] [facility] ([place]BC) [Entitic mass]29.7 mgBcmmzg47.7-34.3 The [facility] Physician GroupComment on above:Performed By: #### DIFF CBC, BMP ####[address] [address] [facility] (RBC) [Entitic vol]88.7 wYLyxeqp40-008Cml [facility] Physician GroupComment on above:Performed By: #### DIFF CBC, BMP ####[address] [address] USAMean Corpuscular HGB Conc33.4 g/dLNormal 32.0-35.0The [facility] Physician GroupComment on above:Performed By: #### DIFF CBC, BMP ####[address] [address] USAMetamyelocytes2 %High0-0The [facility] Physician GroupComment on above: Performed By: #### DIFF CBC, BMP ####[address] [address] USAMonocytes/100 WBC (Bld)9 %Normal2-11The [facility] Physician GroupComment on above:Performed By: #### DIFF CBC, BMP ####[address] [address] USAMyelocytes3 %High0-0 The [facility] Physician GroupComment on above:Performed By: #### DIFF CBC, BMP ####[address] [address] [place] Platelet EstimateIncreasedNormalNormalThe [facility] Physician GroupComment on above:Performed By: #### DIFF CBC, BMP ####[address] [address] USAPlatelet mean volume (Bld) [Entitic vol]7.2 fL Normal6.3-10.7The [facility] Physician GroupComment on above:Performed By: #### DIFF CBC, BMP ####[place] [id number] USAPlatelet MorphologyNormalNormalNormalThe [facility] Physician [facility] Comment on above:Result Comment: PERFORMED BY:[address] [place], [place] [phone] MEDICAL DIRECTORCARLOS VÁZQUEZ M.D.Performed By: #### DIFF CBC, BMP ####[place] [id number] USAPlatelets (Bld) [#/Vol]545 10*3/lZMaah256-036Dhq [facility] Physician GroupComment on above: Performed By: #### DIFF CBC, BMP ####[place] [id number] USARBC (Bld) [#/Vol]2.90 10*6/uLLow3.60-5.00The [facility]ician [facility] UnitComment on above:Performed By: #### DIFF CBC, BMP ####[place] [id number] [place] Segmented neutrophils/100 WBC (Bld)73 %Kjym57-89Olw [facility] Physician [facility] Comment on above:Performed By: #### DIFF CBC, BMP ####[place] [address] USAWBC (Bld) [#/Vol]8.5 10*3/uLNormal 3.8-11.6The [facility] Physician GroupComment on above:Performed By: #### DIFF CBC, BMP ####[place] [id number] USAWhite Blood Count8.5 [CFU]/mLNormal3.8-11.6[facility] Comment on above:Performed By: #### DIFF CBC, BMP ####[place] [id number] USABasic Metabolic Panelon 11-21-2024 Anion gap [Moles/Vol]12.3 mmol/LNormal6.0-15.0[facility] Physician [facility] Comment on above:Performed By: #### BMP ####[place] [id number] USACalcium [Mass/Vol]7.9 mg/dLLow8.6-10.3The [facility] Physician GroupComment on above:Performed By: #### BMP ####[place] [id number] USAChloride [Moles/Vol] 104 mmol/DHwowie13-339Ewc [facility]ician [facility] UnitComment on above:Performed By: #### BMP ####[place] [address] USACO2 [Moles/Vol]28.4 mmol/NKgqmxm31.0-31.0[facility] Comment on above:Performed By: #### BMP ####[place] [id number] USACreatinine [Mass/Vol]0.83 mg/dLNormal0.60-1.20 The [facility] Physician GroupComment on above:Performed By: #### BMP ####[place] [id number] [place] Creatinine Clr Calc Vlijrbqn59.69NormalThe [facility] Physician [facility] UnitComment on above:Result Comment: PERFORMED BY:[address] [place], [place] [phone] MEDICAL JACKELYN VÁZQUEZ M.D.Performed By: #### BMP ####[address] [address] USAGFR/1.73 sq M.predicted MDRD (S/P/Bld) [Vol rate/Area]mL/min/{1.73_m2}NormalThe [facility] Physician GroupComment on above: Performed By: #### BMP ####[address] [address] USAGlucose [Mass/Vol]83 mg/gVPdjcfl09-199Wja [facility] Physician GroupComment on above:Result Comment: Random Glucose Reference Range is dependent on time and content of last meal. Glucose of more than 200 mg/dL in a nonstressed, ambulatory subject supports the diagnosis of Diabetes Mellitus. ADA recommended reference rangePerformed By: #### BMP ####[address] [address] USAPotassium [Moles/Vol]3.7 mmol/LNormal3.5-5.1The [facility] Physician GroupComment on above:Performed By: #### BMP ####[address] [address] USASodium [Moles/Vol]141 mmol/OQgkath173-472Xvl [facility] Physician GroupComment on above:Performed By: #### BMP ####[address] [address] USAUrea nitrogen [Mass/Vol]16 mg/dLNormal7-25The [facility] Physician GroupComment on above:Performed By: #### BMP ####[address] [address] USABasic Metabolic Panel on 57-10-5012Cricq gap [Moles/Vol]14.1 mmol/LNormal6.0-15.0The [facility] Physician GroupComment on above:Performed By: #### BMP, CBC ####[address] [address] USACalcium [Mass/Vol]8.0 mg/dLLow8.6-10.3The [facility] Physician GroupComment on above:Performed By: #### BMP, CBC ####[address] [address] USAChloride [Moles/Vol]103 mmol/ZTygxnz76-568Ebb [facility] Comment on above:Performed By: #### BMP, CBC ####[address] [address] USACO2 [Moles/Vol]27.0 mmol/LNormal 21.0-31.0The [facility] Physician GroupComment on above:Performed By: #### BMP, CBC ####[address] [address] [place] Creatinine [Mass/Vol]0.97 mg/dLNormal0.60-1.20[facility] Comment on above:Performed By: #### BMP, CBC ####[place] [address] USACreatinine Clr Calc Wiupnyav71.12 NormalThe [facility] Physician GroupComment on above:Result Comment: PERFORMED BY:[place] [address] [place], [place] [phone] MEDICAL JACKELYN VÁZQUEZ M.D.Performed By: #### BMP, CBC ####[place] [phone] [place] GFR/1.73 sq M.predicted MDRD (S/P/Bld) [Vol rate/Area]mL/min/{1.73_m2}NormalThe [facility] Physician GroupComment on above:Performed By: #### BMP, CBC ####[place] [address] USAGlucose [Mass/Vol]76 mg/qCCpfwxg45-635Tmk [facility] Physician GroupComment on above: Result Comment: Random Glucose Reference Range is dependent on time and content of last meal. Glucose of more than 200 mg/dL in a nonstressed, ambulatory subject supports the diagnosis of Diabetes Mellitus. ADA recommended reference rangePerformed By: #### BMP, CBC ####[place] [id number] USAPotassium [Moles/Vol]3.1 mmol/LLow3.5-5.1The [facility] Physician GroupComment on above:Performed By: #### BMP, CBC ####[place] [address] USASodium [Moles/Vol]141 mmol/BJyjkap425-356Vwn [facility] Physician GroupComment on above: Performed By: #### BMP, CBC ####[place] [id number] USAUrea nitrogen [Mass/Vol]18 mg/dLNormal7-25The [facility] Physician GroupComment on above:Performed By: #### BMP, CBC ####[place] [id number] [place] Complete Blood Count Auto Diffon 43-32-4875Zwpidcbcd (Bld) [#/Vol]0.1 10*3/uL Normal0.0-0.2The [facility] Physician GroupComment on above:Result Comment: PERFORMED BY:[address] [place], [place] [phone] MEDICAL DIRECTORCARLOS VÁZQUEZ M.D.Performed By: #### BMP, CBC ####[place] [address] USABasophils/100 WBC (Bld)1.3 %Normal.The [facility] Physician GroupComment on above:Performed By: #### BMP, CBC ####[place] [address] USAEosinophils (Bld) [#/Vol]0.3 10*3/uLNormal 0.0-0.45The [facility] Physician GroupComment on above:Performed By: #### BMP, CBC ####[place] [address] [place] Eosinophils/100 WBC (Bld)5.2 %Normal.The [facility] Physician GroupComment on above:Performed By: #### BMP, CBC ####[place] [address] USAErythrocyte distribution width (RBC) [Ratio]18.5 % High11.9-15.3The [facility] Physician GroupComment on above:Performed By: #### BMP, CBC ####[place] [address] USAHematocrit (Bld) [Volume fraction]24.4 %Low34.0-46.4The [facility] Physician GroupComment on above:Performed By: #### BMP, CBC ####[place] [address] USAHemoglobin (Bld) [Mass/Vol]8.3 g/dLLow 11.8-15.4The [facility] Physician GroupComment on above:Performed By: #### BMP, CBC ####[place] [address] [place] Lymphocytes (Bld) [#/Vol]1.3 10*3/uLNormal1.00-4.8The [facility] Comment on above:Performed By: #### BMP, CBC ####[place] [address] USALymphocytes/100 WBC (Bld)19.4 %Normal. The [facility] Physician GroupComment on above:Performed By: #### BMP, CBC ####[address] (RBC) [Entitic mass]29.7 qpNxzuag86.7-34.3The [facility] Physician GroupComment on above:Performed By: #### BMP, CBC ####[address] (RBC) [Entitic vol]87.3 wUBpcivw35-964Ldq [facility] Physician GroupComment on above:Performed By: #### BMP, CBC ####[place] [address] USAMean Corpuscular HGB Conc34.0 g/lGCdffmc44.0-35.0The [facility] Physician GroupComment on above:Performed By: #### BMP, CBC ####[place] [address] USAMonocytes (Bld) [#/Vol]0.6 10*3/uLNormal 0.0-0.8The [facility] Physician GroupComment on above:Performed By: #### BMP, CBC ####[place] [address] [place] Monocytes/100 WBC (Bld)9.4 %Normal.The [facility] Physician GroupComment on above:Performed By: #### BMP, CBC ####[place] [address] USANeutrophils (Bld) [#/Vol]4.2 10*3/uLNormal1.8-7.7The [facility] Physician GroupComment on above:Performed By: #### BMP, CBC ####[place] [id number] [place] Neutrophils/100 WBC (Bld)64.7 %Normal.The [facility] Physician GroupComment on above:Performed By: #### BMP, CBC ####[address] [address] USANRBC%0.0 /100{WBC}Normal0-0.5The [facility] Physician GroupComment on above:Performed By: #### BMP, CBC ####[place] [id number] USAPlatelet mean volume (Bld) [Entitic vol]7.5 fLNormal6.3-10.7The [facility] Physician GroupComment on above: Performed By: #### BMP, CBC ####[place] [address] USAPlatelets (Bld) [#/Vol]563 10*3/zHWkzl633-218May [facility] Physician GroupComment on above:Performed By: #### BMP, CBC ####[place] [address] USARBC (Bld) [#/Vol]2.79 10*6/uLLow3.60-5.00The [facility] Physician GroupComment on above:Performed By: #### BMP, CBC ####[place] [address] USAWBC (Bld) [#/Vol]6.5 10*3/uLNormal3.8-11.6The [facility] Physician GroupComment on above:Performed By: #### BMP, CBC ####[place] [address] USAWhite Blood Count6.5 [CFU]/mLNormal3.8-11.6The [facility] Physician GroupComment on above:Performed By: #### BMP, CBC ####[place] [id number] USABasic Metabolic Panelon 14-83-8388Wbfht gap [Moles/Vol]16.4 mmol/LHigh6.0-15.0The [facility] Physician GroupComment on above: Performed By: #### BMP ####[address] [address] USACalcium [Mass/Vol]8.3 mg/dLLow8.6-10.3The [facility] Physician GroupComment on above:Performed By: #### BMP ####[address] [address] USAChloride [Moles/Vol]102 mmol/L Ybfzkr39-494Lwo [facility] Physician GroupComment on above:Performed By: #### BMP ####[address] [address] USACO2 [Moles/Vol]26.2 mmol/WTxstqw29.0-31.0The [facility] Physician GroupComment on above:Performed By: #### BMP ####[address] [address] USACreatinine [Mass/Vol]1.09 mg/dLNormal0.60-1.20The [facility] Physician GroupComment on above:Performed By: #### BMP ####[address] [address] USACreatinine Clr Calc Tksvmlwu84.93NormalThValor Health Physician GroupComment on above:Result Comment: PERFORMED BY:[place] [address] [place], [place] [phone] MEDICAL JACKELYN VÁZQUEZ M.D.Performed By: #### BMP ####[address] [address] USAGFR/1.73 sq M.predicted MDRD (S/P/Bld) [Vol rate/Area]53.309 mL/min/{1.73_m2} NormalThe [facility] Physician GroupComment on above:Performed By: #### BMP ####[address] [address] USAGlucose [Mass/Vol]81 mg/rGYsgxcp70-407Rlr [facility] Physician GroupComment on above: Result Comment: Random Glucose Reference Range is dependent on time and content of last meal. Glucose of more than 200 mg/dL in a nonstressed, ambulatory subject supports the diagnosis of Diabetes Mellitus. ADA recommended reference rangePerformed By: #### BMP ####[address] [address] USAPotassium [Moles/Vol]3.6 mmol/LNormal3.5-5.1The [facility] Physician GroupComment on above:Performed By: #### BMP ####[place] [address] USASodium [Moles/Vol]141 mmol/LIsshbd659-851Hjg [facility] Physician GroupComment on above:Performed By: #### BMP ####[place] [address] USAUrea nitrogen [Mass/Vol]20 mg/dLNormal7-25The [facility] Comment on above:Performed By: #### BMP ####[place] [address] USAClostridium Difficileon 03-87-6591Jwlhlnqzxmk DifficileNegativeNormalNegativeThe [facility] Physician GroupComment on above: Order Comment: > or = to 3 loose/watery stools in the last 24 HRS? Y Is patient on promotility agents or tube feeding? NResult Comment: Testing performed by RT- PCRPERFORMED BY:[place] [address] [place], [place] [phone] MEDICAL JACKELYN VÁZQUEZ M.D.Performed By: #### CDT, LACTO SWBC ####[place] [id number] USAComplete Blood Count Auto Diffon 29-76-4607Hcdsafiwe (Bld) [#/Vol]0.1 10*3/uLNormal0.0-0.2The [facility] Physician GroupComment on above:Result Comment: PERFORMED BY:[place] [address] [place], [place] [phone] MEDICAL JACKELYN VÁZQUEZ M.D.Performed By: #### CBC ####[address] [address] USABasophils/100 WBC (Bld)1.1 %Normal.The [facility] Physician GroupComment on above:Performed By: #### CBC ####[address] [address] USAEosinophils (Bld) [#/Vol]0.3 10*3/uLNormal0.0-0.45The [facility] Physician GroupComment on above:Performed By: #### CBC ####[address] [address] USAEosinophils/100 WBC (Bld)3.9 %Normal.The [facility] Physician GroupComment on above:Performed By: #### CBC ####[place] [address] USAErythrocyte distribution width (RBC) [Ratio]20.1 % High11.9-15.3The [facility] Physician GroupComment on above:Performed By: #### CBC ####[place] [id number] [place] Hematocrit (Bld) [Volume fraction]22.3 %Low34.0-46.4The [facility] Physician GroupComment on above:Performed By: #### CBC ####[place] [address] USAHemoglobin (Bld) [Mass/Vol]7.4 g/dLLow 11.8-15.4The [facility] Physician GroupComment on above:Performed By: #### CBC ####[address] [address] [place] Lymphocytes (Bld) [#/Vol]0.8 10*3/uLLow1.00-4.8[facility] Comment on above:Performed By: #### CBC ####[place] [address] USALymphocytes/100 WBC (Bld)12.0 %Normal.The [facility] Physician GroupComment on above:Performed By: #### CBC ####[place] [address] [place] [address] [facility] (RBC) [Entitic mass]29.5 ieHthkib69.7-34.3The [facility] Physician GroupComment on above: Performed By: #### CBC ####[address] [address] USAV (RBC) [Entitic vol]88.5 nIAfzqpk44-721Zqy [facility] Physician GroupComment on above:Performed By: #### CBC ####[address] [address] USAMean Corpuscular HGB Conc33.3 g/sQCeoqgj89.0-35.0The [facility] Physician GroupComment on above: Performed By: #### CBC ####[address] [address] USAMonocytes (Bld) [#/Vol]1.1 10*3/uLHigh0.0-0.8The [facility] Physician GroupComment on above:Performed By: #### CBC ####[address] [address] USAMonocytes/100 WBC (Bld)15.6 %Normal.The [facility] Physician GroupComment on above:Performed By: #### CBC ####[address] [address] USANeutrophils (Bld) [#/Vol]4.7 10*3/uLNormal1.8-7.7The [facility] Physician GroupComment on above:Performed By: #### CBC ####[address] [address] USANeutrophils/100 WBC (Bld)67.4 %Normal. The [facility] Physician GroupComment on above:Performed By: #### CBC ####[address] [address] USANRBC% 0.1 /100{WBC}Normal0-0.5The [facility] Physician GroupComment on above:Performed By: #### CBC ####[address] [place] [address] USAPlatelet mean volume (Bld) [Entitic vol]8.2 fLNormal6.3-10.7The [facility] Physician GroupComment on above:Performed By: #### CBC ####[address] [address] USAPlatelets (Bld) [#/Vol]446 10*3/sJZvspfe485-862Xjy [facility] Physician GroupComment on above: Performed By: #### CBC ####[place] [address] USARBC (Bld) [#/Vol]2.52 10*6/uLLow3.60-5.00The [facility] Physician GroupComment on above:Performed By: #### CBC ####[address] [address] USAWBC (Bld) [#/Vol]7.0 10*3/uLNormal3.8-11.6The [facility] Physician GroupComment on above:Performed By: #### CBC ####[address] [address] USAWhite Blood Count7.0 [CFU]/mLNormal3.8-11.6The [facility] Physician [facility] Comment on above:Performed By: #### CBC ####[address] [address] USAGastrointestinal Profile, PCRon 11-19-2024 Adenovirus F 40/41Not detectedNormalNot DetectedThe [facility] Comment on above:Performed By: #### GI PROFILE, STL ####[facility] , AstrovirusNot detectedNormalNot DetectedThe [facility] Physician [facility] UnitComment on above:Performed By: #### GI PROFILE, STL ####[facility] ,C Difficile Toxin A/BNot detectedNormalNot DetectedThe [facility] Physician [facility] UnitComment on above:Performed By: #### GI PROFILE, STL ####[facility] ,Campylobacter Not detectedNormalNot DetectedThe [facility] Physician GroupComment on above: Performed By: #### GI PROFILE, STL ####[facility] ,CryptosporidiumNot detectedNormalNot DetectedThe [facility] Physician GroupComment on above: Performed By: #### GI PROFILE, STL ####[facility] ,Cyclospora cayetanensisNot detectedNormalNot DetectedThe [facility] Physician GroupComment on above:Performed By: #### GI PROFILE, STL ####[facility] ,E coli Q641Znl applicableNormalNot DetectedThe [facility] Physician GroupComment on above:Performed By: #### GI PROFILE, STL ####[facility] ,Entamoeba histolyticaNot detectedNormalNot DetectedThe [facility] Physician GroupComment on above:Performed By: #### GI PROFILE, STL ####[facility] , Enteroaggregative E coliNot detectedNormalNot DetectedThe [facility] Physician GroupComment on above:Performed By: #### GI PROFILE, STL ####[facility] ,Enteropathogenic E coliNot detectedNormalNot DetectedThe [facility] Physician GroupComment on above:Performed By: #### GI PROFILE, STL ####[facility] ,Enterotoxigenic E coliNot detectedNormalNot DetectedThe [facility] Physician GroupComment on above:Performed By: #### GI PROFILE, STL ####[facility] ,Giardia lambliaNot detectedNormalNot DetectedThe [facility] Physician GroupComment on above:Performed By: #### GI PROFILE, STL ####[facility] ,Norovirus GI/GIINot detectedNormalNot DetectedThe [facility] Physician GroupComment on above:Performed By: #### GI PROFILE, STL ####[facility] ,Plesiomonas shigelloidesNot detectedNormalNot DetectedThe [facility] Physician GroupComment on above:Performed By: #### GI PROFILE, STL ####[facility] ,Rotavirus ANot detectedNormalNot DetectedThe [facility] Physician GroupComment on above:Performed By: #### GI PROFILE, STL ####[facility] ,SalmonellaNot detectedNormalNot DetectedThe [facility] Physician GroupComment on above:Performed By: #### GI PROFILE, STL ####[facility] ,SapovirusNot detectedNormalNot DetectedThe [facility] Physician GroupComment on above:Result Comment: Performed at: [facility] [id number] LabDirector: Joyce Castillo MD, Phone: [phone] BY:[facility] [place], [place] [phone] MEDICAL DIRECTORCARLOS VÁZQUEZ M.D.Performed By: #### GI PROFILE, STL ####[facility] ,Ipxsk-cvoim-jzhaemdje E coli Not detectedNormalNot DetectedThe [facility] Physician GroupComment on above: Performed By: #### GI PROFILE, STL ####[facility] , Shigella/Enteroinvasive E coliNot detectedNormalNot DetectedThe [facility] Physician GroupComment on above:Performed By: #### GI PROFILE, STL ####[facility] ,VibrioNot detectedNormalNot DetectedThe [facility] Comment on above:Performed By: #### GI PROFILE, STL ####[facility] , Vibrio choleraeNot detectedNormalNot DetectedThe [facility] Comment on above:Performed By: #### GI PROFILE, STL ####[facility] , Yersinia enterocoliticaNot detectedNormalNot DetectedThe [facility] Physician GroupComment on above:Performed By: #### GI PROFILE, STL ####[facility] ,Lactic Acidon 46-61-1697Mighays [Moles/Vol]1.0 mmol/LNormal0.5-1.9 The [facility] Physician GroupComment on above:Result Comment: Lactic Acid reference range has been updated to 0.5 ? 1.9 mmol/L and the critical range of 2.0 or greater.PERFORMED BY:[address] [address] [place], [place] [phone] MEDICAL JACKELYN VÁZQUEZ M.D.Performed By: #### LACTIC ####[address] [address] USALactoferrin, Stool WBCon 89-57-2141Bbiztstpzmb, Stool WBCNormalThe [facility] Physician [facility] UnitComment on above:Performed By: #### CDT, LACTO SWBC ####[address] [address] USALeukoReduced RBCon 53-08-0497AohmoAjvhgtt RBCTRANSFUSED 11/19/24 1410 NormalThe [facility] Physician GroupPotassiumon 20-34-5739Gipcsolve [Moles/Vol] 3.1 mmol/LLow3.5-5.1The [facility] Physician GroupComment on above:Result Comment: PERFORMED BY:[address] [address] [place], [place] [phone] MEDICAL JACKELYN VÁZQUEZ M.D.Performed By: #### K ####[address] [address] USAStool Bacterial Panelon 75-14-1207ImlzhbbcjswrfMfhgamhdEtwtpiXscgyzlhGpw [facility] Physician GroupComment on above:Result Comment: Campylobacter test includes C. jejuni and C. coli.Performed By: #### ENT PARASITIC P, ENT BACT PANEL ####[address] [address] [place] Salmonella SpeciesNegativeNormalNegativeThe [facility] Physician GroupComment on above:Result Comment: Testing performed by RT-PCRPERFORMED BY:[address] [address] [place], [place] [phone] MEDICAL JACKELYN VÁZQUEZ M.D.Performed By: #### ENT PARASITIC P, ENT BACT PANEL ####[address] [address] USAShiga Toxin (E coli O157+oth)NegativeNormalNegativeThe [facility] Comment on above:Performed By: #### ENT PARASITIC P, ENT BACT PANEL ####[address] [address] [facility] Shigella SpeciesNegativeNormalNegativeThe [facility] Physician GroupComment on above:Result Comment: Shigella sp. test includes Shigella species and Enteroinvasive E. coli (EIEC).Performed By: #### ENT PARASITIC P, ENT BACT PANEL ####[place] [id number] USAStool Occult Blood (Guaiac)on 08-69-7010Lcnfd Occult Blood (Guaiac)NormalThe [facility] Physician GroupComment on above:Performed By: #### OB(GUAIAC) ####[place] [phone] Parasitic Panel on 78-14-1592Trppansefdsdmyy (C.hominis+parNegativeNormalNegativeThe [facility] Physician GroupComment on above:Result Comment: Cryptosporidium test includes C. hominis and C. parvum.Performed By: #### ENT PARASITIC P, ENT BACT PANEL ####[place] [id number] [facility] Entamoeba histolyticaNegativeNormalNegativeThe [facility] Physician GroupComment on above:Result Comment: Testing performed by RT-PCRPERFORMED BY:[address] [phone] MEDICAL JACKELYN VÁZQUEZ M.D.Performed By: #### ENT PARASITIC P, ENT BACT PANEL ####[place] [id number] USAGiardia lambliaNegativeNormalNegativeThe [facility] Physician GroupComment on above:Performed By: #### ENT PARASITIC P, ENT BACT PANEL ####[place] [address] USAType and Screenon 11-19-2024 ABO and Rh group Nom (Bld)Blood group A Rh(D) positiveNormalThe [facility] Physician GroupComment on above:Order Comment: Transfuse now? Y Number of units to transfuse now? 1Result Comment: PERFORMED BY:[place] [address] [place], [place] [phone] MEDICAL DIRECTORCARLOS VÁZQUEZ M.D.Basic Metabolic Panelon 29-80-4542Djocz gap [Moles/Vol]15.6 mmol/LHigh6.0-15.0The [facility] Physician GroupComment on above: Performed By: #### DIFF CBC, BMP ####[address] [address] USACalcium [Mass/Vol]8.0 mg/dLLow8.6-10.3The [facility] Physician GroupComment on above:Performed By: #### DIFF CBC, BMP ####[address] [address] USAChloride [Moles/Vol] 100 mmol/AUbsvpj15-140Dbe [facility] Physician GroupComment on above:Performed By: #### DIFF CBC, BMP ####[address] [address] USACO2 [Moles/Vol]27.7 mmol/NJffhgv66.0-31.0The [facility] Physician GroupComment on above:Performed By: #### DIFF CBC, BMP ####[address] [address] [place] Creatinine [Mass/Vol]1.20 mg/dLNormal0.60-1.20The [facility] Comment on above:Performed By: #### DIFF CBC, BMP ####[address] [address] USACreatinine Clr Calc Texauimy94.58 NormalThe [facility] Physician GroupComment on above:Result Comment: PERFORMED BY:[place] [address] [place], [place] [phone] MEDICAL JACKELYN VÁZQUEZ M.D.Performed By: #### DIFF CBC, BMP ####[address] [address] USAGFR/1.73 sq M.predicted MDRD (S/P/Bld) [Vol rate/Area]47.500 mL/min/{1.73_m2} NormalThe [facility] Physician GroupComment on above:Performed By: #### DIFF CBC, BMP ####[address] [address] [place] Glucose [Mass/Vol]73 mg/wOEieyoj53-697Nyr [facility] Physician GroupComment on above:Result Comment: Random Glucose Reference Range is dependent on time and content of last meal. Glucose of more than 200 mg/dL in a nonstressed, ambulatory subject supports the diagnosis of Diabetes Mellitus. ADA recommended reference rangePerformed By: #### DIFF CBC, BMP ####[address] [address] USAPotassium [Moles/Vol]2.3 mmol/LOff scale low3.5-5.1The [facility] Physician GroupComment on above:Result Comment: Critical Result Called to and read back by: KEY ALMAZAN at: 11/18/2024 05:52:36 by:[id number] By: #### DIFF CBC, BMP ####[place] [id number] USASodium [Moles/Vol]141 mmol/LNormal 136-145The [facility] Physician GroupComment on above:Performed By: #### DIFF CBC, BMP ####[address] [address] USAUrea nitrogen [Mass/Vol]21 mg/dLNormal7-25The [facility] Comment on above:Performed By: #### DIFF CBC, BMP ####[address] [address] USADiff and CBCon 34-02-2891Mrsemxpijfvh Ql (Bld)ModerateNormalThe [facility] Physician GroupComment on above:Performed By: #### DIFF CBC, BMP ####[place] [phone] USABand form neutrophils/100 WBC (Bld)5 %Normal0-5The [facility] Physician GroupComment on above:Performed By: #### DIFF CBC, BMP ####[place] [phone] [place] Basophils/100 WBC (Bld)1 %Normal0-2The [facility] Physician GroupComment on above:Performed By: #### DIFF CBC, BMP ####[place] [phone] USAEosinophils/100 WBC (Bld)2 %Normal1-3The [facility] Physician GroupComment on above:Performed By: #### DIFF CBC, BMP ####[place] [address] [place] Erythrocyte distribution width (RBC) [Ratio]19.2 %High11.9-15.3The [facility] Physician GroupComment on above:Performed By: #### DIFF CBC, BMP ####[place] [address] USAGiant Platelet Tally2 /100{WBC}NormalThe [facility] Physician GroupComment on above:Performed By: #### DIFF CBC, BMP ####[place] [phone] USAHematocrit (Bld) [Volume fraction]22.7 %Low34.0-46.4The [facility] Physician GroupComment on above:Performed By: #### DIFF CBC, BMP ####[place] [address] USAHemoglobin (Bld) [Mass/Vol]7.6 g/dLLow11.8-15.4The [facility] Physician GroupComment on above: Performed By: #### DIFF CBC, BMP ####[place] [id number] USAHypochromasiaSlightNormalThe [facility] Physician GroupComment on above:Performed By: #### DIFF CBC, BMP ####[place] [phone] USALymphocytes/100 WBC (Bld)3 % Ujr78-24Ntz [facility] Physician GroupComment on above:Performed By: #### DIFF CBC, BMP ####[address] [address] USAMacrocytosisSlightNormToledo Hospitale [facility] Physician GroupComment on above: Performed By: #### DIFF CBC, BMP ####[address] [address] USAMCH (RBC) [Entitic mass]29.2 bzObvusl84.7-34.3The [facility] Physician GroupComment on above:Performed By: #### DIFF CBC, BMP ####[address] [address] USAMCV (RBC) [Entitic vol]87.6 mZGtfjqv40-086Lyv [facility] Physician GroupComment on above:Performed By: #### DIFF CBC, BMP ####[address] [address] USAMean Corpuscular HGB Conc33.3 g/dLNormal 32.0-35.0The [facility] Physician GroupComment on above:Performed By: #### DIFF CBC, BMP ####[address] [address] USAMetamyelocytes1 %High0-0The [facility] Physician GroupComment on above: Performed By: #### DIFF CBC, BMP ####[address] [address] USAMonocytes/100 WBC (Bld)20 %High2-11The [facility] Physician GroupComment on above:Performed By: #### DIFF CBC, BMP ####[address] [address] USAPlatelet Estimate IncreasedNormalNormToledo Hospitale [facility] Physician GroupComment on above:Performed By: #### DIFF CBC, BMP ####[address] [address] USAPlatelet mean volume (Bld) [Entitic vol]8.1 fLNormal6.3-10.7The [facility] Physician GroupComment on above:Performed By: #### DIFF CBC, BMP ####[address] [address] [facility] Platelet MorphologyNormalNormalNormBroward Health Imperial Point Physician GroupComment on above:Result Comment: PERFORMED BY:[address] [place], [place] [phone] MEDICAL DIRECTORCARLOS VÁZQUEZ M.D.Performed By: #### DIFF CBC, BMP ####[address] [address] USAPlatelets (Bld) [#/Vol]540 10*3/iQYhpl653-182 The [facility] Physician GroupComment on above:Performed By: #### DIFF CBC, BMP ####[address] [address] [facility] PolychromasiaSlightNormBroward Health Imperial Point Physician GroupComment on above:Performed By: #### DIFF CBC, BMP ####[address] [address] USARBC (Bld) [#/Vol]2.59 10*6/uLLow3.60-5.00The [facility] Physician GroupComment on above:Performed By: #### DIFF CBC, BMP ####[address] [address] USARBC morphology finding Nom (Bld)NormalNormalNoFrye [facility] Comment on above:Performed By: #### DIFF CBC, BMP ####[address] [address] USAReactive Lymphocytes3 %Normal0-12The [facility] Physician GroupComment on above:Performed By: #### DIFF CBC, BMP ####[address] [address] [place] Segmented neutrophils/100 WBC (Bld)66 %Ljelde46-57Mke [facility] Comment on above:Performed By: #### DIFF CBC, BMP ####[address] [address] USAWBC (Bld) [#/Vol]8.9 10*3/uLNormal 3.8-11.6The [facility] Physician GroupComment on above:Performed By: #### DIFF CBC, BMP ####[address] [address] USAWhite Blood Count8.9 [CFU]/mLNormal3.8-11.6The [facility] Comment on above:Performed By: #### DIFF CBC, BMP ####[address] [address] USAECG 12 lead ECGon 52-59-2373BSU 12 lead ECGNormalThe [facility] Physician [facility] UnitPotassiumon 94-11-8147Ztbqltsod [Moles/Vol]2.9 mmol/LOff scale low3.5-5.1The [facility] Physician [facility] Care UnitComment on above:Result Comment: Critical Result Called to and read back by: NANCI MCDONALD at: 11/18/2024 13:54:38 by:MLGPERFORMED BY:[address] [place], [place] [phone] MEDICAL DIRECTORCARLOS VÁZQUEZ M.D.Performed By: #### K ####[address] [address] USAComprehensive Metabolic Panelon 89-43-4389Uvoplcd [Mass/Vol]3.0 g/dLLow3.5-5.7The [facility] Physician [facility] UnitComment on above: Performed By: #### CMP, PAB, MG, DIFF CBC ####[place] [phone] USAAlbumin/Globulin [Mass ratio]1.4 {ratio} NormalThe [facility] Physician [facility] UnitComment on above:Performed By: #### CMP, PAB, MG, DIFF CBC ####[address] [address] USAALP [Catalytic activity/Vol]102 U/THuflta01-752Zaz [facility] Physician [facility] UnitComment on above:Performed By: #### CMP, PAB, MG, DIFF CBC ####[address] [address] USAALT [Catalytic activity/Vol]57 U/LHigh7-52The [facility] Physician GroupComment on above: Performed By: #### CMP, PAB, MG, DIFF CBC ####[place] [id number] USAAnion gap [Moles/Vol]16.3 mmol/LHigh6.0-15.0 The [facility] Physician GroupComment on above:Performed By: #### CMP, PAB, MG, DIFF CBC ####[place] [id number] USAAST [Catalytic activity/Vol]20 U/YQyfyjg78-22Qpc [facility] Comment on above:Performed By: #### CMP, PAB, MG, DIFF CBC ####[place] [id number] USABilirubin [Mass/Vol] 1.4 mg/dLHigh0.3-1.0The [facility] Physician GroupComment on above:Result Comment: Samples from patients who have taken Naproxen have shown spurious elevation in Total Bilirubin levels. A metabolite of Naproxen, O- desmethylnaproxen, has been shown to interfere with the Aminah-Mark method for measuring Total Bilirubin.Performed By: #### CMP, PAB, MG, DIFF CBC ####[place] [id number] USACalcium [Mass/Vol]8.4 mg/dLLow8.6-10.3The [facility] Physician GroupComment on above: Performed By: #### CMP, PAB, MG, DIFF CBC ####[place] [id number] USAChloride [Moles/Vol]105 mmol/KGyinoj53-174Hoa [facility] Physician GroupComment on above:Performed By: #### CMP, PAB, MG, DIFF CBC ####[place] [id number] [place] CO2 [Moles/Vol]23.9 mmol/GGbqrdh67.0-31.0The [facility] Physician GroupComment on above:Performed By: #### CMP, PAB, MG, DIFF CBC ####[place] [id number] USACreatinine [Mass/Vol]1.52 mg/dLHigh 0.60-1.20The [facility] Physician GroupComment on above:Performed By: #### CMP, PAB, MG, DIFF CBC ####[place] [address] [place] [address] USACreatinine Clr Calc Lbanyuew05.97NormBroward Health [facility] Comment on above:Performed By: #### CMP, PAB, MG, DIFF CBC ####[place] [address] USAGFR/1.73 sq M.predicted MDRD (S/P/Bld) [Vol rate/Area]35.768 mL/min/{1.73_m2}NormalThe [facility] Physician GroupComment on above:Performed By: #### CMP, PAB, MG, DIFF CBC ####[place] [address] [place] Globulin (S) [Mass/Vol]2.1 g/dLNoFrye [facility] Physician GroupComment on above:Performed By: #### CMP, PAB, MG, DIFF CBC ####[place] [address] USAGlucose [Mass/Vol]75 mg/mOOuioam27-499 The [facility] Physician GroupComment on above:Result Comment: Random Glucose Reference Range is dependent on time and content of last meal. Glucose of more than 200 mg/dL in a nonstressed, ambulatory subject supports the diagnosis of Diabetes Mellitus. ADA recommended reference rangePerformed By: #### CMP, PAB, MG, DIFF CBC ####[place] [address] USAPotassium [Moles/Vol]3.2 mmol/LLow3.5-5.1The [facility] Comment on above:Performed By: #### CMP, PAB, MG, DIFF CBC ####[place] [address] USAProtein [Mass/Vol]5.1 g/dLLow6.4-8.9The [facility] Physician GroupComment on above:Performed By: #### CMP, PAB, MG, DIFF CBC ####[address] [address] USASodium [Moles/Vol]142 mmol/NVxinua464-727Hpk [facility] Physician GroupComment on above:Performed By: #### CMP, PAB, MG, DIFF CBC ####[address] Urea nitrogen [Mass/Vol]29 mg/dLHigh7-25The [facility] Physician GroupComment on above:Performed By: #### CMP, PAB, MG, DIFF CBC ####[address] [address] USADiff and CBCon 90-73-9144Zzgbyhpneefy Ql (Bld)ModerateNormalThe [facility] Physician GroupComment on above:Performed By: #### CMP, PAB, MG, DIFF CBC ####[place] [address] USABand form neutrophils/100 WBC (Bld)13 %High0-5The [facility] Physician GroupComment on above:Performed By: #### CMP, PAB, MG, DIFF CBC ####[address] Basophils/100 WBC (Bld)2 %Normal0-2The [facility] Physician GroupComment on above:Performed By: #### CMP, PAB, MG, DIFF CBC ####[address] [address] USAEosinophils/100 WBC (Bld)6 %High1-3The [facility] Physician GroupComment on above:Performed By: #### CMP, PAB, MG, DIFF CBC ####[place] [id number] [facility] Erythrocyte distribution width (RBC) [Ratio]15.7 %High11.9-15.3The [facility] Physician GroupComment on above:Performed By: #### CMP, PAB, MG, DIFF CBC ####[place] [id number] [facility] Hematocrit (Bld) [Volume fraction]25.0 %Low34.0-46.4The [facility] Physician GroupComment on above:Performed By: #### CMP, PAB, MG, DIFF CBC ####[place] [address] USAHemoglobin (Bld) [Mass/Vol]8.2 g/dLLow11.8-15.4The [facility] Physician GroupComment on above: Performed By: #### CMP, PAB, MG, DIFF CBC ####[place] [address] USAHypochromasiaModerateHCA [facility] Physician GroupComment on above:Performed By: #### CMP, PAB, MG, DIFF CBC ####[place] [address] USALarge PlateletsSAngel Medical Center Physician GroupComment on above:Result Comment: PERFORMED BY:[address] [place], [place] [phone] MEDICAL DIRECTORCARLOS VÁZQUEZ M.D.Performed By: #### CMP, PAB, MG, DIFF CBC ####[place] [id number] USALymphocytes/100 WBC (Bld)5 %Tnk06-44Ftl [facility] Physician GroupComment on above:Performed By: #### CMP, PAB, MG, DIFF CBC ####[place] [address] [place] MacrocytosisSAngel Medical Center Physician GroupComment on above:Performed By: #### CMP, PAB, MG, DIFF CBC ####[place] [id number] USAMCH (RBC) [Entitic mass]28.8 dwXvgfrr88.7-34.3The [facility] Physician GroupComment on above:Performed By: #### CMP, PAB, MG, DIFF CBC ####[place] [address] USAMCV (RBC) [Entitic vol]87.9 bUQsaptn18-546Kgk [facility] Physician GroupComment on above:Performed By: #### CMP, PAB, MG, DIFF CBC ####[address] [address] USAMean Corpuscular HGB Conc32.8 g/dL Oxlpnb53.0-35.0The [facility] Physician GroupComment on above:Performed By: #### CMP, PAB, MG, DIFF CBC ####[address] [address] USAMetamyelocytes2 %High0-0The [facility] Physician GroupComment on above:Performed By: #### CMP, PAB, MG, DIFF CBC ####[place] [id number] USAMonocytes/100 WBC (Bld)12 %High2-11The [facility] Physician GroupComment on above:Performed By: #### CMP, PAB, MG, DIFF CBC ####[place] [address] USAPlatelet EstimateNormalNormalNormBroward Health [facility] Point Physician GroupComment on above:Performed By: #### CMP, PAB, MG, DIFF CBC ####[address] [address] [place] Platelet mean volume (Bld) [Entitic vol]9.1 fLNormal6.3-10.7The [facility] Physician GroupComment on above:Performed By: #### CMP, PAB, MG, DIFF CBC ####[address] [address] [place] Platelets (Bld) [#/Vol]368 10*3/fTIjndyp327-719Gtf [facility] Comment on above:Performed By: #### CMP, PAB, MG, DIFF CBC ####[place] [id number] USAPoikilocytosisSlight NormalThe [facility] Physician GroupComment on above:Performed By: #### CMP, PAB, MG, DIFF CBC ####[address] [address] USAPolychromasiaSlightNormBroward Health Imperial Point Physician GroupComment on above: Performed By: #### CMP, PAB, MG, DIFF CBC ####[place] [address] USARBC (Bld) [#/Vol]2.84 10*6/uLLow3.60-5.00The [facility] Physician GroupComment on above:Performed By: #### CMP, PAB, MG, DIFF CBC ####[place] [address] [place] SchistocytesCommunity Health Physician GroupComment on above:Performed By: #### CMP, PAB, MG, DIFF CBC ####[place] [address] USASegmented neutrophils/100 WBC (Bld)60 %Lpfpvg32-10 The [facility] Physician GroupComment on above:Performed By: #### CMP, PAB, MG, DIFF CBC ####[place] [address] USAStomatocytesSAngel Medical Center Physician GroupComment on above: Performed By: #### CMP, PAB, MG, DIFF CBC ####[place] [address] USATear Drop CellsCommunity Health Physician GroupComment on above:Performed By: #### CMP, PAB, MG, DIFF CBC ####[place] [address] USAWBC (Bld) [#/Vol]14.4 10*3/uLHigh3.8-11.6The [facility] Physician GroupComment on above:Performed By: #### CMP, PAB, MG, DIFF CBC ####[place] [address] USAWhite Blood Count12.6 [CFU]/mLHigh 3.8-11.6The [facility] Physician GroupComment on above:Performed By: #### CMP, PAB, MG, DIFF CBC ####[place] [address] USAMagnesiumon 28-96-0894Fcjaintfm [Mass/Vol]2.1 mg/dLNormal1.9-2.7The [facility] Physician GroupComment on above:Performed By: #### CMP, PAB, MG, DIFF CBC ####[address] [address] [place] Potassiumon 19-62-2490Vaxnvggml [Moles/Vol]3.5 mmol/LNormal3.5-5.1The [facility] Physician GroupComment on above:Result Comment: PERFORMED BY:[address] [place]ARTINEZWILLACO[place], [place] [phone] MEDICAL JACKELYN VÁZQUEZ M.D.Performed By: #### K ####[place] [id number] USAPrealbuminon 41-04-7273Whbkswqrtx [Mass/Vol]12.2 mg/dLLow17.0-34.0The [facility] Physician GroupComment on above: Result Comment: PERFORMED BY:[address] MARTINEZWILLACOOCHEE, [place] [phone] MEDICAL JACKELYN VÁZQUEZ M.D.Performed By: #### CMP, PAB, MG, DIFF CBC ####[address] [address] USAMagnesiumon 41-44-4598Onfmrrgir [Mass/Vol]1.5 mg/dLLow1.9-2.7The [facility] Physician GroupComment on above: Result Comment: PERFORMED BY:[address] [place], [place] [phone] MEDICAL JACKELYN VÁZQUEZ M.D.Performed By: #### RENAL, MG ####[address] [address] USARenal Function Panelon 35-77-0596Kzrivwl [Mass/Vol] 3.0 g/dLLow3.5-5.7The [facility] Physician GroupComment on above:Performed By: #### RENAL, MG ####[address] [address] USAAnion gap [Moles/Vol]15.2 mmol/LHigh6.0-15.0[facility] Medical CenterComment on above:Performed By: #### RENAL, MG ####[place] [address] USACalcium [Mass/Vol]8.7 mg/dL Normal8.6-10.3The [facility] Physician [facility] UnitComment on above:Performed By: #### RENAL, MG ####[place] [address] USAChloride [Moles/Vol]106 mmol/FBjysvg20-181Xnn [facility] Physician [facility] Comment on above:Performed By: #### RENAL, MG ####[place] [address] USACO2 [Moles/Vol]26.2 mmol/LNormal 21.0-31.0The [facility] Physician [facility] UnitComment on above:Performed By: #### RENAL, MG ####[place] [address] [place] Creatinine [Mass/Vol]1.67 mg/dLHigh0.60-1.20The [facility] CenterComment on above:Performed By: #### RENAL, MG ####[place] [address] USACreatinine Clr Calc Mbsvshrx93.92NormalThMississippi State HospitalComment on above:Performed By: #### RENAL, MG ####[place] [id number] [place] GFR/1.73 sq M.predicted MDRD (S/P/Bld) [Vol rate/Area]31.949 mL/min/{1.73_m2} NormalThe [facility] Rehabilitation CenterComment on above:Performed By: #### RENAL, MG ####[place] [id number] USAGlucose [Mass/Vol]59 mg/qWFbe05-892Pfo [facility] Physician [facility] UnitComment on above:Result Comment: Random Glucose Reference Range is dependent on time and content of last meal. Glucose of more than 200 mg/dL in a nonstressed, ambulatory subject supports the diagnosis of Diabetes Mellitus. ADA recommended reference range Performed By: #### RENAL, MG ####[address] [address] USAPhosphate [Mass/Vol]2.8 mg/dLNormal2.5-4.5The [facility] Physician GroupComment on above:Performed By: #### RENAL, MG ####[address] [address] [place] Potassium [Moles/Vol]3.4 mmol/LLow3.5-5.1The [facility] Physician GroupComment on above:Performed By: #### RENAL, MG ####[address] [address] USASodium [Moles/Vol]144 mmol/WBlgrix339-170Fej [facility] Physician GroupComment on above:Performed By: #### RENAL, MG ####[address] [address] USAUrea nitrogen [Mass/Vol]34 mg/dLHigh7-25The [facility] Physician GroupComment on above:Performed By: #### RENAL, MG ####[address] [address] USABasic Metabolic Panelon 75-37-2854Pkfid gap [Moles/Vol]Not performedNormal6.0-15.0The [facility] Physician GroupComment on above:Performed By: #### BMP ####[address] [address] USACalcium [Mass/Vol]8.6 mg/dLNormal8.6-10.3The [facility] Physician GroupComment on above:Performed By: #### BMP ####[address] [address] USAChloride [Moles/Vol] 106 mmol/ASkylhp81-936Kcw [facility] Physician GroupComment on above:Performed By: #### BMP ####[address] [address] USACO2 [Moles/Vol]21.3 mmol/CXjntkz13.0-31.0The [facility] Comment on above:Performed By: #### BMP ####[address] [address] USACreatinine [Mass/Vol]2.16 mg/dLHigh0.60-1.20 The [facility] Physician GroupComment on above:Performed By: #### BMP ####[address] [address] [place] Creatinine Clr Calc Znlbmkqr17.59NormalThe [facility] Physician GroupComment on above:Result Comment: PERFORMED BY:[place] [address] [place] [place], [place] [phone] MEDICAL DIRECTORCARLOS VÁZQUEZ M.D.Performed By: #### BMP ####[address] [address] USAGFR/1.73 sq M.predicted MDRD (S/P/Bld) [Vol rate/Area]23.462 mL/min/{1.73_m2}NormalThe [facility] Physician GroupComment on above:Performed By: #### BMP ####[address] [address] USAGlucose [Mass/Vol]79 mg/rWHuumsj87-750Gdt [facility] Physician GroupComment on above:Result Comment: Random Glucose Reference Range is dependent on time and content of last meal. Glucose of more than 200 mg/dL in a nonstressed, ambulatory subject supports the diagnosis of Diabetes Mellitus. ADA recommended reference rangePerformed By: #### BMP ####[address] [address] USAPotassiumNormal3.5-5.1The [facility] [facility] Physician [facility] Care UnitComment on above:Result Comment: Specimen hemolyzed, redraw requested Results called at 0552 on 11/13/24Performed By: #### BMP ####[address] [address] USASodium [Moles/Vol]140 mmol/YLcgtwb160-553Zgl [facility] Physician GroupComment on above: Performed By: #### BMP ####[address] [place] [address] USAUrea nitrogen [Mass/Vol]40 mg/dLHigh7-25The [facility] Physician GroupComment on above:Performed By: #### BMP ####[address] [address] USAECH echo limitedon 90-53-2292CID echo limitedNormalThe [facility] Physician GroupMagnesiumon 99-13-5912Auatzdfze [Mass/Vol]1.7 mg/dLLow1.9-2.7The [facility] Comment on above:Result Comment: PERFORMED BY:[place] [address] [address] [place], [place] [phone] MEDICAL JACKELYN VÁZQUEZ M.D.Performed By: #### MG ####[address] [address] USARedraw Potassiumon 11-13-2024 Potassium [Moles/Vol]3.4 mmol/LLow3.5-5.1The [facility] Physician GroupComment on above:Result Comment: PERFORMED BY:[address] [place] [address] [address] [place], [place] [phone] MEDICAL JACKELYN VÁZQUEZ M.D.Performed By: #### REDRAW K ####[address] [address] USABasic Metabolic Panelon 10-59-6685Iwkez gap [Moles/Vol]15.0 mmol/LNormal6.0-15.0The [facility] Physician GroupComment on above:Performed By: #### BMP, HEPATIC ####[address] [address] USACalcium [Mass/Vol]8.9 mg/dLNormal8.6-10.3The [facility] Physician GroupComment on above:Performed By: #### BMP, HEPATIC ####[address] [address] [place] Chloride [Moles/Vol]104 mmol/QKfjwwz50-493Sxh [facility] Physician GroupComment on above:Performed By: #### BMP, HEPATIC ####[address] [address] USACO2 [Moles/Vol]24.4 mmol/CMogtlo59.0-31.0The [facility] Physician GroupComment on above:Performed By: #### BMP, HEPATIC ####[address] [address] [place] Creatinine [Mass/Vol]2.48 mg/dLHigh0.60-1.20The [facility] Physician GroupComment on above:Performed By: #### BMP, HEPATIC ####[address] [address] USACreatinine Clr Calc Dggmnhtm96.55NormalThe [facility] Physician [facility] UnitComment on above:Result Comment: PERFORMED BY:[address] [place], [place] [phone] MEDICAL JACKELYN VÁZQUEZ M.D.Performed By: #### JOSE, HEPATIC ####[address] [address] [place] GFR/1.73 sq M.predicted MDRD (S/P/Bld) [Vol rate/Area]19.878 mL/min/{1.73_m2} NormalThe [facility] Physician [facility] Care UnitComment on above:Performed By: #### JOSE, HEPATIC ####[address] [address] USAGlucose [Mass/Vol]91 mg/oLYueesl03-021Wsf [facility] Physician [facility] UnitComment on above:Result Comment: Random Glucose Reference Range is dependent on time and content of last meal. Glucose of more than 200 mg/dL in a nonstressed, ambulatory subject supports the diagnosis of Diabetes Mellitus. ADA recommended reference rangePerformed By: #### BMP, HEPATIC ####[address] [address] USAPotassium [Moles/Vol]3.4 mmol/LLow 3.5-5.1The [facility] Physician [facility] UnitComment on above:Performed By: #### BMP, HEPATIC ####[address] [address] USASodium [Moles/Vol]140 mmol/QNaltde912-640Iiv [facility] Physician GroupComment on above:Performed By: #### BMP, HEPATIC ####[address] [address] USAUrea nitrogen [Mass/Vol]47 mg/dLHigh7-25The [facility] Physician GroupComment on above:Performed By: #### BMP, HEPATIC ####[place] [id number] USADiff and CBCon 53-47-0968Rvvlxkajdvnz Ql (Bld)ModerateNormBroward Health Imperial Point Physician GroupComment on above:Performed By: #### DIFF CBC ####[place] [address] USABand form neutrophils/100 WBC (Bld)9 %High0-5The [facility] Physician GroupComment on above:Performed By: #### DIFF CBC ####[address] Erythrocyte distribution width (RBC) [Ratio]16.0 %High11.9-15.3The [facility] Physician GroupComment on above:Performed By: #### DIFF CBC ####[place] [id number] USAGiant Platelet Tally2 /100{WBC}NormalSt. Joseph'S Hospital Physician GroupComment on above:Performed By: #### DIFF CBC ####[place] [address] USAHematocrit (Bld) [Volume fraction]26.0 %Low34.0-46.4The [facility] Physician GroupComment on above:Performed By: #### DIFF CBC ####[place] [id number] USAHemoglobin (Bld) [Mass/Vol]8.7 g/dLLow 11.8-15.4The [facility] Physician GroupComment on above:Performed By: #### DIFF CBC ####[place] [id number] [place] HypochromasiaModerateNormBroward Health Imperial Point Physician GroupComment on above: Performed By: #### DIFF CBC ####[address] [address] USALymphocytes/100 WBC (Bld)5 %Tpb46-29Cjk [facility] Physician GroupComment on above:Performed By: #### DIFF CBC ####[address] [address] USAMCH (RBC) [Entitic mass]28.0 ivTrhvdv53.7-34.3The [facility] Physician GroupComment on above: Performed By: #### DIFF CBC ####[address] [address] USAMCV (RBC) [Entitic vol]84.1 jIJiyamo78-732Laq [facility] Physician GroupComment on above:Performed By: #### DIFF CBC ####[address] [address] USAMean Corpuscular HGB Conc33.4 g/cDAvgfrz70.0-35.0The [facility] Physician GroupComment on above:Performed By: #### DIFF CBC ####[address] [address] USAMonocytes/100 WBC (Bld)8 %Normal2-11The [facility] Physician GroupComment on above:Performed By: #### DIFF CBC ####[address] [address] [place] Myelocytes2 %High0-0The [facility] Physician GroupComment on above:Performed By: #### DIFF CBC ####[address] [address] USANucleated Red Blood Cell4 /100{WBC}High0-0The [facility] Comment on above:Performed By: #### DIFF CBC ####[address] [address] USAPlatelet EstimateNormalNormalNormalThe [facility] Physician GroupComment on above:Performed By: #### DIFF CBC ####[address] [address] [place] Platelet mean volume (Bld) [Entitic vol]8.3 fLNormal6.3-10.7The [facility] Physician GroupComment on above:Performed By: #### DIFF CBC ####[address] [address] USAPlatelet Morphology NormalNormalNoFrye Regional [facility] Physician GroupComment on above:Result Comment: PERFORMED BY:[address] [place], [place] [phone] MEDICAL JACKELYN VÁZQUEZ M.D.Performed By: #### DIFF CBC ####[address] [address] USAPlatelets (Bld) [#/Vol]244 10*3/lHVcjrtt761-069Wxj [facility] Physician GroupComment on above:Performed By: #### DIFF CBC ####[address] [address] USAPoikilocytosisModHCA Florida [facility]cal[facility] Hospital Physician GroupComment on above:Performed By: #### DIFF CBC ####[address] [address] [place] PolychromasiaSlightNoFrye Regional Medical [facility] Physician GroupComment on above:Performed By: #### DIFF CBC ####[address] [address] USAPromyelocytes1 %High0-0The [facility] Physician GroupComment on above:Performed By: #### DIFF CBC ####[address] [address] USARBC (Bld) [#/Vol]3.09 10*6/uLLow3.60-5.00The [facility] Physician GroupComment on above:Performed By: #### DIFF CBC ####[address] [address] [place] Segmented neutrophils/100 WBC (Bld)76 %Kzlt46-99Zgf [facility] Comment on above:Performed By: #### DIFF CBC ####[address] [address] USAStomatocytesModRandolph Healthlands Physician GroupComment on above:Performed By: #### DIFF CBC ####[address] [address] USATarget CellsSlightNoFrye Regional Medical [facility] Physician GroupComment on above:Performed By: #### DIFF CBC ####[address] [address] USAWBC (Bld) [#/Vol]17.6 10*3/uLHigh3.8-11.6The [facility] Comment on above:Performed By: #### DIFF CBC ####[address] [address] USAWhite Blood Count17.6 [CFU]/mLHigh 3.8-11.6The [facility] Physician GroupComment on above:Performed By: #### DIFF CBC ####[address] [address] [facility] Hepatic Panelon 65-78-4543Jwcvlyv [Mass/Vol]3.1 g/dLLow3.5-5.7The [facility] Physician GroupComment on above:Performed By: #### BMP, HEPATIC ####[address] [address] USAAlbumin/Globulin [Mass ratio]1.6 {ratio}NormalThe [facility] Physician GroupComment on above: Performed By: #### BMP, HEPATIC ####[address] [address] USAALP [Catalytic activity/Vol]106 U/KWnvl85-370Bhr [facility] Physician GroupComment on above:Performed By: #### BMP, HEPATIC ####[address] [address] USAALT [Catalytic activity/Vol]114 U/LHigh7-52The [facility] Physician GroupComment on above:Performed By: #### BMP, HEPATIC ####[address] [address] USAAST [Catalytic activity/Vol]25 U/NNfxhfs02-99 The [facility] Physician GroupComment on above:Performed By: #### BMP, HEPATIC ####[address] [address] [place] Bilirubin [Mass/Vol]1.2 mg/dLHigh0.3-1.0The [facility] Physician GroupComment on above:Performed By: #### BMP, HEPATIC ####[address] [address] USABilirubin,Indirect0.6 mg/dLNormalThe [facility] Physician GroupComment on above:Performed By: #### BMP, HEPATIC ####[address] [address] USABilirubin.indirect [Mass/Vol]0.60 mg/dLHigh0.03-0.18The [facility] Physician GroupComment on above: Performed By: #### BMP, HEPATIC ####[address] [address] USAGlobulin (S) [Mass/Vol]2.0 g/dLNormToledo Hospitale [facility] Physician GroupComment on above:Performed By: #### BMP, HEPATIC ####[address] [address] USAProtein [Mass/Vol]5.1 g/dLLow6.4-8.9The [facility] Physician GroupComment on above:Performed By: #### BMP, HEPATIC ####[address] [address] USABasic Metabolic Panelon 05-31-7298Zkgog gap [Moles/Vol]13.2 mmol/L Normal6.0-15.0The [facility] Physician GroupComment on above:Performed By: #### BMP, LDH ####[address] [address] USACalcium [Mass/Vol]8.7 mg/dLNormal8.6-10.3The [facility] Physician GroupComment on above:Performed By: #### BMP, LDH ####[address] [address] USAChloride [Moles/Vol]100 mmol/USkwmgt41-043Krz [facility] Physician GroupComment on above:Performed By: #### BMP, LDH ####[address] [place] [address] USACO2 [Moles/Vol]25.4 mmol/LMjxdkh43.0-31.0The [facility] Physician GroupComment on above:Performed By: #### BMP, LDH ####[address] [address] USACreatinine [Mass/Vol]2.59 mg/dLSignificant change down0.60-1.20The [facility] Physician GroupComment on above:Performed By: #### BMP, LDH ####[address] [address] USACreatinine Clr Calc Txzznhmr91.82NormalThValor Health Physician [facility] Care UnitComment on above:Result Comment: PERFORMED BY:[address] [place], [place] [phone] MEDICAL DIRECTORCARLOS VÁZQUEZ M.D.Performed By: #### BMP, LDH ####[address] [address] USAGFR/1.73 sq M.predicted MDRD (S/P/Bld) [Vol rate/Area]18.870 mL/min/{1.73_m2}NormalThe [facility] Physician [facility] UnitComment on above:Performed By: #### BMP, LDH ####[address] [address] USAGlucose [Mass/Vol]88 mg/hYNajjna16-089Dgw [facility] Physician [facility] UnitComment on above:Result Comment: Random Glucose Reference Range is dependent on time and content of last meal. Glucose of more than 200 mg/dL in a nonstressed, ambulatory subject supports the diagnosis of Diabetes Mellitus. ADA recommended reference rangePerformed By: #### BMP, LDH ####[address] [address] USAPotassium [Moles/Vol] 3.6 mmol/LNormal3.5-5.1The [facility] Physician GroupComment on above:Performed By: #### BMP, LDH ####[place] [id number] USASodium [Moles/Vol]135 mmol/GGzh565-661Yal [facility] Comment on above:Performed By: #### BMP, LDH ####[place] [id number] USAUrea nitrogen [Mass/Vol]44 mg/dLHigh 7-25The [facility] Physician GroupComment on above:Performed By: #### BMP, LDH ####[place] [id number] USABlood Cultureon 96-30-6048Turogcqm identified Cx Nom (Bld)NO GROWTH 5 DAYS PERFORMED BY: [facility] [address] [place] [address] PATHOLOGIST HEAD CORRECTION OFFICER CARLOS VÁZQUEZ M.D.NormalSt. Joseph'S Hospital Physician GroupComment on above: Performed By: #### CUBLD ####[place] [address] USAClostridium Difficileon 86-96-7685Xrvayuawvua DifficileNegativeNormalNegativeSt. Joseph'[facility] Physician [facility] UnitComment on above: Order Comment: > or = to 3 loose/watery stools in the last 24 HRS? Y Is patient on promotility agents or tube feeding? NResult Comment: Testing performed by RT- PCRPERFORMED BY:[address], [place] [phone] MEDICAL DIRECTORCARLOS VÁZQUEZ M.D.Performed By: #### OB(GUAIAC), CDT ####[place] [id number] USADiff and CBCon 79-68-6750XvqvqnpbjnqiAteuzjBtswvmRyo [place] Physician [facility] Care UnitComment on above:Performed By: #### DIFF CBC ####[place] [id number] [place] Anisocytosis Ql (Bld)ModerateNoFrye [facility] Physician GroupComment on above:Performed By: #### DIFF CBC ####[place] [address] USABand form neutrophils/100 WBC (Bld)5 %Normal0-5The [facility] Physician GroupComment on above:Performed By: #### DIFF CBC ####[address] [address] [place] Basophils/100 WBC (Bld)2 %Normal0-2The [facility] Physician GroupComment on above:Performed By: #### DIFF CBC ####[address] [address] USAEosinophils/100 WBC (Bld)2 %Normal1-3The [facility] Physician GroupComment on above:Performed By: #### DIFF CBC ####[address] [address] USAErythrocyte distribution width (RBC) [Ratio]15.8 %High11.9-15.3The [facility] Comment on above:Performed By: #### DIFF CBC ####[place] [id number] USAGiant Platelet Tally1 /100{WBC}Normal The [facility] Physician GroupComment on above:Performed By: #### DIFF CBC ####[address] [address] [facility] Hematocrit (Bld) [Volume fraction]19.6 %Off scale low34.0-46.4The [facility] Physician GroupComment on above:Result Comment: Critical value result called at 0848 on 11/11/24Performed By: #### DIFF CBC ####[place] [id number] USAHemoglobin (Bld) [Mass/Vol]6.5 g/dLLow 11.8-15.4The [facility] Physician GroupComment on above:Performed By: #### DIFF CBC ####[address] [address] [place] HypochromasiaSlightNormalThe [facility] Physician GroupComment on above:Performed By: #### DIFF CBC ####[address] [address] USALymphocytes/100 WBC (Bld)4 %Iow44-32Uej [facility] Physician [facility] Comment on above:Performed By: #### DIFF CBC ####[address] [address] USAH (RBC) [Entitic mass]27.9 pgNormal 24.7-34.3The [facility] Physician GroupComment on above:Performed By: #### DIFF CBC ####[address] [address] USAMCV (RBC) [Entitic vol]83.7 oCClifvi11-241Rzw [facility] Physician GroupComment on above:Performed By: #### DIFF CBC ####[address] [address] USAMean Corpuscular HGB Conc33.3 g/fKTwxmyh83.0-35.0The [facility] Physician GroupComment on above:Performed By: #### DIFF CBC ####[address] [address] [place] Metamyelocytes2 %High0-0The [facility] Physician GroupComment on above:Performed By: #### DIFF CBC ####[address] [address] USAMonocytes/100 WBC (Bld)11 %Normal2-11The [facility] Physician [facility] Comment on above:Performed By: #### DIFF CBC ####[address] [address] USANucleated Red Blood Cell2 /100{WBC} High0-0The [facility] Physician GroupComment on above:Performed By: #### DIFF CBC ####[address] [address] [place] OvalocytesSlightNoFrye Regional [facility] Physician GroupComment on above:Performed By: #### DIFF CBC ####[address] [address] USAPlasma Cells1 %High0-0The [facility] Physician GroupComment on above: Performed By: #### DIFF CBC ####[address] [address] USAPlatelet EstimateNormalNormalNoFrye Regional [facility] Physician GroupComment on above:Performed By: #### DIFF CBC ####[address] [address] USAPlatelet mean volume (Bld) [Entitic vol]8.3 fLNormal6.3-10.7The [facility] Physician GroupComment on above:Performed By: #### DIFF CBC ####[address] [address] USAPlatelet MorphologyNormalNormalNormBroward Health Imperial Point Physician GroupComment on above:Result Comment: PERFORMED BY:[address] [place], [place] [phone] MEDICAL DIRECTORCARLOS VÁZQUEZ M.D.Performed By: #### DIFF CBC ####[address] [address] USAPlatelets (Bld) [#/Vol]246 10*3/hAQhfkmt044-273Bth [facility] Physician GroupComment on above:Performed By: #### DIFF CBC ####[address] [address] USAPoikilocytosisModerateNormBroward Health Imperial Point Physician GroupComment on above:Performed By: #### DIFF CBC ####[address] [address] USAPolychromasiaSlightNoFrye Regional [facility] Physician GroupComment on above:Performed By: #### DIFF CBC ####[address] [address] USARBC (Bld) [#/Vol]2.34 10*6/uLLow 3.60-5.00The [facility] Physician GroupComment on above:Performed By: #### DIFF CBC ####[address] [address] [place] Reactive Lymphocytes2 %Normal0-12The [facility] Physician GroupComment on above: Performed By: #### DIFF CBC ####[address] [address] USASegmented neutrophils/100 WBC (Bld)72 %Kfzk08-39Wry [facility] Physician GroupComment on above:Performed By: #### DIFF CBC ####[address] [address] [place] StomatocytesModerateNoFrye Regional [facility] Physician GroupComment on above: Performed By: #### DIFF CBC ####[address] [address] USATarget CellsSlightNoFrye Regional Medical [facility] Physician GroupComment on above:Performed By: #### DIFF CBC ####[address] [address] USAWBC (Bld) [#/Vol]18.5 10*3/uLHigh 3.8-11.6The [facility] Physician GroupComment on above:Performed By: #### DIFF CBC ####[address] [address] [facility] White Blood Count18.5 [CFU]/mLHigh3.8-11.6The [facility] Physician GroupComment on above:Performed By: #### DIFF CBC ####[address] [address] USAHaptoglobinon 16-21-6166Crovmngxvul288 mg/dL Baxryl73-726Kzk [facility] Physician GroupComment on above:Order Comment: TO BE DRAWN WITH REPEAT H H PER JULITO per rn julito will pull from HD cath with HH once pt has units of blood and is transfusedResult Comment: PERFORMED BY:[address] [place], [place] [phone] MEDICAL JACKELYN VÁZQUEZ M.D.Performed By: #### HAPT ####[address] [address] USAHemogram CBC Without Diffon 26-75-6073Otefeuaztry distribution width (RBC) [Ratio]15.7 %High11.9-15.3 The [facility] Physician GroupComment on above:Performed By: #### CBCNO ####[address] [address] [place] Hematocrit (Bld) [Volume fraction]26.0 %Low34.0-46.4The [facility] Physician GroupComment on above:Performed By: #### CBCNO ####[place] [id number] USAHemoglobin (Bld) [Mass/Vol]8.8 g/dLLow 11.8-15.4The [facility] Physician GroupComment on above:Performed By: #### CBCNO ####[address] [address] [facility] ([facility]) [Entitic mass]28.3 loAtnuap21.7-34.3The [facility] Physician GroupComment on above:Performed By: #### CBCNO ####[place] [phone] [facility] (RBC) [Entitic vol]83.7 pCYatqrg56-939Lhw [facility] Physician GroupComment on above:Performed By: #### CBCNO ####[place] [phone] USAMean Corpuscular HGB Conc33.8 g/wITpphix21.0-35.0The [facility] Physician [facility] UnitComment on above: Performed By: #### CBCNO ####[place] [id number] USAPlatelet mean volume (Bld) [Entitic vol]8.1 fLNormal 6.3-10.7The [facility] Physician GroupComment on above:Result Comment: PERFORMED BY:[address] [place], [place] [phone] MEDICAL DIRECTORCARLOS VÁZQUEZ M.D.Performed By: #### CBCNO ####[address] [address] [place] Platelets (Bld) [#/Vol]243 10*3/fLRnqrcq650-429Ppn [facility] Comment on above:Performed By: #### CBCNO ####[place] [phone] USARBC (Bld) [#/Vol]3.11 10*6/uLLow3.60-5.00The [facility] Physician [facility] UnitComment on above:Performed By: #### CBCNO ####[place] [id number] USAWhite Blood Count 21.3 [CFU]/mLHigh3.8-11.6The [facility] Physician GroupComment on above:Performed By: #### CBCNO ####[place] [id number] USALDH Lactate Dehydrogenaseon 96-65-4659LEC Lactate Rfrdtzwpzsnzc502 U/L Vjzf415-484Qlq [facility] Physician [facility] UnitComment on above:Result Comment: PERFORMED BY:[address] [place], [place] [phone] MEDICAL DIRECTORCARLOS VÁZQUEZ M.D.Performed By: #### BMP, LDH ####[place] [id number] USALeukoReduced RBCon 37-76-0700WxebiGxagoim RBCTRANSFUSED 11/11/24 1413 NormalThe [facility] Physician [facility] Centercan and CBCon 75-35-6623Svneathvgqqi Ql (Bld)SlightNormalThe [facility] Physician [facility] UnitComment on above:Performed By: #### SCAN CBC ####[place] [address] USABasophils (Bld) [#/Vol]0.0 10*3/uLNormal0.0-0.2The [facility] Physician [facility] UnitComment on above:Performed By: #### SCAN CBC ####[place] [address] USABasophils/100 WBC (Bld)0.1 %Normal. The [facility] Physician GroupComment on above:Performed By: #### SCAN CBC ####[place] [id number] [place] Eosinophils (Bld) [#/Vol]0.3 10*3/uLNormal0.0-0.45The [facility] Physician [facility] Comment on above:Performed By: #### SCAN CBC ####[address] [address] USAEosinophils/100 WBC (Bld)1.5 %Normal. The [facility] Physician GroupComment on above:Performed By: #### SCAN CBC ####[address] Erythrocyte distribution width (RBC) [Ratio]16.2 %High11.9-15.3The [facility] Physician GroupComment on above:Performed By: #### SCAN CBC ####[place] [address] USAHematocrit (Bld) [Volume fraction]19.6 %Off scale low34.0-46.4The [facility] Group Comment on above:Result Comment: Critical value result called at 0602 on 11/11/24 jPerformed By: #### SCAN CBC ####[place] [address] USAHemoglobin (Bld) [Mass/Vol]6.4 g/dLLow 11.8-15.4The [facility] Physician GroupComment on above:Performed By: #### SCAN CBC ####[address] [address] [place] HypochromasiaSlightNormalThe [facility] Physician GroupComment on above:Performed By: #### SCAN CBC ####[place] [address] USALymphocytes (Bld) [#/Vol]1.4 10*3/uLNormal1.00-4.8The [facility] Physician GroupComment on above:Performed By: #### SCAN CBC ####[place] [phone] USALymphocytes/100 WBC (Bld)7.5 %Normal.The [facility] Physician GroupComment on above:Performed By: #### SCAN CBC ####[place] [address] USAMCH (RBC) [Entitic mass]27.5 siAfkhcq17.7-34.3The [facility] Physician GroupComment on above:Performed By: #### SCAN CBC ####[address] [address] USAMCV (RBC) [Entitic vol]84.1 fLNormal 80-100The [facility] Physician GroupComment on above:Performed By: #### SCAN CBC ####[address] [address] USAMean Corpuscular HGB Conc32.7 g/aBZrczji80.0-35.0The [facility] Physician GroupComment on above:Performed By: #### SCAN CBC ####[address] [address] [address] USAMonocytes (Bld) [#/Vol]1.5 10*3/uLHigh0.0-0.8 [facility] Physician GroupComment on above:Performed By: #### SCAN CBC ####[place] [id number] [place] Monocytes/100 WBC (Bld)8.0 %Normal.The [facility] Physician GroupComment on above:Performed By: #### SCAN CBC ####[address] [address] USANeutrophils (Bld) [#/Vol]15.2 10*3/uLHigh1.8-7.7[facility] Physician GroupComment on above:Performed By: #### SCAN CBC ####[place] [id number] [place] Neutrophils/100 WBC (Bld)82.9 %Normal.[facility] Physician GroupComment on above:Performed By: #### SCAN CBC ####[address] [address] USANRBC%0.1 /100{WBC}Normal0-0.5The [facility] Physician GroupComment on above:Performed By: #### SCAN CBC ####[place] [id number] USAOvalocytesModerateNormalThe [facility] Physician GroupComment on above:Performed By: #### SCAN CBC ####[place] [phone] [place] Platelet EstimateNormalNormalNormBroward Health Imperial Point Physician GroupComment on above:Performed By: #### SCAN CBC ####[address] [address] USAPlatelet mean volume (Bld) [Entitic vol]8.5 fLNormal 6.3-10.7[facility] Physician GroupComment on above:Performed By: #### SCAN CBC ####[address] [address] [facility] Platelet MorphologyNormalNormalNormBroward Health Imperial Point Physician GroupComment on above:Result Comment: PERFORMED BY:[address] ABHISHEKGaloRadhaHUI, [place] [phone] MEDICAL DIRECTORCARLOS VÁZQUEZ M.D.Performed By: #### SCAN CBC ####[address] [address] USAPlatelets (Bld) [#/Vol]231 10*3/yWUazooe776-658Wmo [facility] Physician GroupComment on above:Performed By: #### SCAN CBC ####[address] [address] [facility] PoikilocytosisModerateNoFrye Regional [facility] Physician GroupComment on above: Performed By: #### SCAN CBC ####[address] [address] USAPolychromasiaSlightNoFrye Regional [facility] Physician GroupComment on above:Performed By: #### SCAN CBC ####[address] [address] USARBC (Bld) [#/Vol]2.33 10*6/uLLow 3.60-5.00[facility] Physician GroupComment on above:Performed By: #### SCAN CBC ####[address] [address] [facility] StomatocytesModerateNoFrye Regional [facility] Physician GroupComment on above: Performed By: #### SCAN CBC ####[address] [address] USATarget CellsSlightNoFrye Regional [facility] Physician GroupComment on above:Performed By: #### SCAN CBC ####[place] [phone] USAWBC (Bld) [#/Vol]18.4 10*3/uLHigh 3.8-11.6[facility] Physician GroupComment on above:Performed By: #### SCAN CBC ####[place] [phone] [facility] White Blood Count18.4 [CFU]/mLHigh3.8-11.6[facility] Physician GroupComment on above:Performed By: #### SCAN CBC ####[place] [phone] USAStool Occult Blood (Guaiac)on 22-15-8644Xfppf Occult Blood (Guaiac)NormalThe [facility] Physician GroupComment on above: Performed By: #### OB(GUAIAC), CDT ####[place] [phone] USAType and Screenon 77-53-2527DXJ and Rh group Nom (Bld)Blood group A Rh(D) positiveHCA Florida Lawnwood Hospital Physician GroupComment on above:Order Comment: Transfuse now? Y Number of units to transfuse now? 2Result Comment: PERFORMED BY:[place] [address] [place] [place], [place] [phone] MEDICAL JACKELYN VÁZQUEZ M.D. Vancomycin,Randomon 12-21-7640Etxhmgmyrm,Afirpd43.9High5.0-20.0[facility] Physician GroupComment on above:Order Comment: Date of last dose?: [id number] Time of last dose?: 2199Result Comment: Last dose: -PERFORMED BY:[place] [address] [address] [place], [place] [phone] MEDICAL JACKELYN VÁZQUEZ M.D.Performed By: #### VANCR ####[address] [address] USAAerobic Cultureon 11-10-2024 Aerobic CultureNoFrye Regional Medical Center [facility] Physician GroupComment on above:Performed By: #### AERC, ####[facility] [address] [place] [address] USAArterial Blood Gason 71-36-2476JGS Base Excess0.8 mmol/LNormal-3.0-3.0 [facility] Physician GroupComment on above:Performed By: #### ABG ####Point of Care testing,ABG Frac Inspired O230 %NormalThe [facility] Physician Group Comment on above:Performed By: #### ABG ####Point of Care testing,ABG Oxygen Content5.8 mmol/LLow6.6-9.7The [facility] Physician GroupComment on above: Performed By: #### ABG ####Point of Care testing,ABG Oxygen Mrypaxqvtp43.9 % Ivwiep49.0-100.0The [facility] Physician GroupComment on above:Performed By: #### ABG ####Point of Care testing,ABG OIK494.1 mm[Hg]Vmaeoa81.0-45.0The [facility] Physician GroupComment on above:Performed By: #### ABG ####Point of Care testing,ABG INQS7YstajxOscFrye Regional Medical Center [facility] Campus Physician GroupComment on above:Performed By: #### ABG ####Point of Care testing,ABG PH7.10Dknhws8.35-7.45The [facility] Physician GroupComment on above:Performed By: #### ABG ####Point of Care testing,ABG PO281.4 mm[Hg]Jkqhwb04.0-100.0The [facility] Physician GroupComment on above:Performed By: #### ABG ####Point of Care testing,ABG TV450 mLNormalThe [facility] Physician GroupComment on above:Performed By: #### ABG ####Point of Care testing,CO2 [Moles/Vol]25.9 mmol/VDkiwfs60.0-27.0The [facility] Physician GroupComment on above:Performed By: #### ABG ####Point of Care testing,HCO3 (Bld) [Moles/Vol]24.8 mmol/LTeoztc36.0-29.0The [facility] Physician GroupComment on above:Performed By: #### ABG ####Point of Care testing,Respiratory Critical NormalThe [facility] Physician GroupComment on above:Result Comment: Critical Value called on: 11/10/2024 at 05:26PERFORMED BY:[address] ABHISHEKGaloRadhaHUI, [place] [phone] MEDICAL DIRECTORCARLOS VÁZQUEZ M.D.Performed By: #### ABG ####Point of Care testing, VBG Draw [facility] Physician GroupComment on above: Performed By: #### ABG ####Point of Care testing,Bacterial susceptibility panel (Isol)on 31-32-5808xjepHHDXnand [Susc]<=1SusceptibleSusceptible <=2 , Intermediate >2 , Resistant >7[facility] Unc Health NashComment on above:Order Comment: Ordering Facility: [facility] Address: [address] [place], [place] [address]Performed By: #### 79572-8, 15404-8 #### [facility] CLIA [id number] [address] [place] [address] [place] OF AMERICAMinocycline [Susc]<=1 SusceptibleSusceptible <=4 , Intermediate >4 , Resistant >8[place] Unc Health NashComment on above:Order Comment: Ordering Facility: [facility] Address: [address] [place], [place] [id number] By: #### 30749-8, 93606-5 #### [facility] CLIA [id number] [address] [place] [address] [place] OF AMERICABacterial susceptibility panel STEPHANIE (Isol)on 63-00-1319Muwofogdawwmz identified Cx Nom (Unsp spec)[id number] AbnormalMercy Health Clermont HospitalComsouthwest regional rehabilitation center on above:Order Comment: Specimen Type: MICROBIAL ISOLATE Ordering Facility: [facility] Address: [address] [place], [place] [address]Result Comment: Stenotrophomonas maltophilia Identification performed by client.Performed By: #### 48455-7, 24807-7 #### [facility] CLIA [id number] [address] [place] [address] [address] Metabolic Panelon 71-02-1981Ydkca gap [Moles/Vol]13.3 mmol/LNormal6.0-15.0The [facility] Physician GroupComment on above:Performed By: #### BMP ####[address] [address] USACalcium [Mass/Vol]8.8 mg/dLNormal 8.6-10.3The [facility] Physician GroupComment on above:Performed By: #### BMP ####[address] [address] [place] Chloride [Moles/Vol]100 mmol/KUxngwz07-105Sta [facility] Physician GroupComment on above:Performed By: #### BMP ####[address] [address] USACO2 [Moles/Vol]25.3 mmol/OEubiht79.0-31.0The [facility] Physician GroupComment on above:Performed By: #### BMP ####[address] [address] USACreatinine [Mass/Vol] 2.05 mg/dLSignificant change down0.60-1.20The [facility] Physician GroupComment on above:Performed By: #### BMP ####[address] [address] USACreatinine Clr Calc Mfkbatkk91.48NormalThe [facility] Physician GroupComment on above:Result Comment: PERFORMED BY:[place] [address] [place] [place], [place] [phone] MEDICAL JACKELYN VÁZQUEZ M.D.Performed By: #### BMP ####[address] [address] USAGFR/1.73 sq M.predicted MDRD (S/P/Bld) [Vol rate/Area]24.981 mL/min/{1.73_m2}NormalThe [facility] Physician GroupComment on above:Performed By: #### BMP ####[place] [id number] USAGlucose [Mass/Vol]109 mg/mNWqja16-960 The [facility] Physician GroupComment on above:Result Comment: Random Glucose Reference Range is dependent on time and content of last meal. Glucose of more than 200 mg/dL in a nonstressed, ambulatory subject supports the diagnosis of Diabetes Mellitus. ADA recommended reference rangePerformed By: #### BMP ####[address] [address] [place] Potassium [Moles/Vol]3.6 mmol/LNormal3.5-5.1The [facility] Physician GroupComment on above:Performed By: #### BMP ####[place] [address] USASodium [Moles/Vol]135 mmol/LSignificant change down 136-145The [facility] Physician GroupComment on above:Performed By: #### BMP ####[address] [address] USAUrea nitrogen [Mass/Vol]29 mg/dLSignificant change down7-25The [facility] Physician GroupComment on above:Performed By: #### BMP ####[address] [address] USADiff and CBCon 96-58-3596Bthvqwehiarr Ql (Bld)SlightNormalThe [facility] Physician GroupComment on above:Performed By: #### DIFF CBC ####[address] [address] USABand form neutrophils/100 WBC (Bld)12 %High0-5The [facility] Physician GroupComment on above:Performed By: #### DIFF CBC ####[address] [address] USAEosinophils/100 WBC (Bld)1 %Normal1-3 The [facility] Physician GroupComment on above:Performed By: #### DIFF CBC ####[address] [address] [facility] Erythrocyte distribution width (RBC) [Ratio]16.3 %High11.9-15.3The [facility] Physician GroupComment on above:Performed By: #### DIFF CBC ####[address] [address] USAHematocrit (Bld) [Volume fraction]25.8 %Low34.0-46.4The [facility] Physician GroupComment on above:Performed By: #### DIFF CBC ####[place] [address] USAHemoglobin (Bld) [Mass/Vol]8.6 g/dLLow11.8-15.4The [facility] Physician GroupComment on above:Performed By: #### DIFF CBC ####[place] [phone] [place] HypochromasiaModerateNoFrye [facility] Physician GroupComment on above: Performed By: #### DIFF CBC ####[address] [address] USALarge PlateletsSlightNoFrye Regional Medical Center [facility] Physician GroupComment on above:Result Comment: PERFORMED BY:[address] ABHISHEKAlirioBLUE SPRINGS, [place] [phone] MEDICAL JACKELYN VÁZQUEZ M.D.Performed By: #### DIFF CBC ####[place] [phone] USALymphocytes/100 WBC (Bld)3 % Fmi05-76Mdd [facility] Physician GroupComment on above:Performed By: #### DIFF CBC ####[address] [address] USAMCH (RBC) [Entitic mass]27.6 exUeohrf18.7-34.3The [facility] Physician GroupComment on above:Performed By: #### DIFF CBC ####[address] [address] USAMCV (RBC) [Entitic vol]83.0 eLFbvcrv63-815Bid [facility] Physician GroupComment on above:Performed By: #### DIFF CBC ####[address] [address] USAMean Corpuscular HGB Conc33.3 g/cVGxuoqq43.0-35.0The [facility] Physician GroupComment on above:Performed By: #### DIFF CBC ####[address] [address] USAMetamyelocytes1 %High0-0The [facility] Physician GroupComment on above:Performed By: #### DIFF CBC ####[address] [address] USAMonocytes/100 WBC (Bld)8 %Normal2-11The [facility] Physician GroupComment on above:Performed By: #### DIFF CBC ####[address] [address] USAPlasma Cells1 %High0-0The [facility] Physician GroupComment on above: Performed By: #### DIFF CBC ####[address] [address] USAPlatelet EstimateNormalNormalNormalThe [facility] Physician GroupComment on above:Performed By: #### DIFF CBC ####[address] [address] USAPlatelet mean volume (Bld) [Entitic vol]8.2 fLNormal6.3-10.7The [facility] Physician GroupComment on above:Result Comment: PERFORMED BY:[address] [place], [place] [phone] MEDICAL JACKELYN VÁZQUEZ M.D.Performed By: #### DIFF CBC ####[address] [address] USAPlatelets (Bld) [#/Vol]246 10*3/iDPrqyho560-483Fwc [facility] Physician GroupComment on above:Performed By: #### DIFF CBC ####[address] [address] [place] PoikilocytosisSlightNormalThe [place] Physician GroupComment on above: Performed By: #### DIFF CBC ####[address] [address] USAPolychromasiaSAngel Medical Center Physician GroupComment on above:Performed By: #### DIFF CBC ####[address] [address] USAPromyelocytes1 %High0-0The [facility] Physician GroupComment on above:Performed By: #### DIFF CBC ####[address] [address] USARBC (Bld) [#/Vol]3.11 10*6/uLLow3.60-5.00The [facility] Physician GroupComment on above:Performed By: #### DIFF CBC ####[address] [address] [facility]ITRouleauxSAngel Medical Center Physician GroupComment on above: Performed By: #### DIFF CBC ####[address] [address] USASegmented neutrophils/100 WBC (Bld)74 %Dbdv26-36Hzm [facility] Physician GroupComment on above:Performed By: #### DIFF CBC ####[address] [address] [facility] StomatocytesSAngel Medical Center Physician GroupComment on above:Performed By: #### DIFF CBC ####[address] [address] USAWBC (Bld) [#/Vol]15.7 10*3/uLHigh3.8-11.6The [facility] Physician GroupComment on above:Performed By: #### DIFF CBC ####[address] [address] USAWhite Blood Count15.7 [CFU]/mLHigh 3.8-11.6The [facility] Physician GroupComment on above:Performed By: #### DIFF CBC ####[address] [address] [place] Glucose Poct Glucometerson 45-73-6521Cbzbkpj9Nfe4: Cleaned MeterNoUniversity Hospitals Parma Medical CenterComment on above:Result Comment: PERFORMED BY:[place] [address] [place] [place], [place] [phone] MEDICAL JACKELYN VÁZQUEZ M.D.Performed By: #### GLULS ####Point of Care testing,Glucose [Mass/Vol]86 mg/dLNoFrye Regional [facility] Physician [facility] Adult Care UnitComment on above:Result Comment: Random Glucose Reference Range is dependent on time and content of last meal. Glucose of more than 200 mg/dL in a nonstressed, ambulatory subject supports the diagnosis of Diabetes Mellitus.Performed By: #### GLULS ####Point of Care testing,Gram Stainon 10-63-7018Lonhszwiuqq observation Gram stain Nom (Unsp spec)Gram Stain Result 2+ White Blood Cells 1+ Epithelial Cells 2+ Yeast Like Elements PERFORMED BY: [facility] [address] [place] [address] PATHOLOGIST HEAD CORRECTION OFFICER CARLOS VÁZQUEZ M.D.NormalThe [facility] Physician GroupComment on above: Performed By: #### AERC, GS ####[address] [address] USAISTAT Glucose Pocon 33-97-0710Gapagfm [Mass/Vol]100 mg/xYWftvso80-745Exb [facility] Physician GroupComment on above:Result Comment: PERFORMED BY:[address] [place]ZELHE[place], [place] [phone] MEDICAL JACKELYN VÁZQUEZ M.D.Performed By: #### ISGLU ####Point of Care testing,Glucose [Mass/Vol]107 mg/zFMycd89-173Xua [facility] Physician GroupComment on above:Result Comment: PERFORMED BY:[address] [place], [place] [phone] MEDICAL JACKELYN VÁZQUEZ M.D.Performed By: #### ISGLU ####Point of Care testing,XR chest 1V portableon 73-18-1889SA chest 1V portableRiverview Psychiatric Center GroupArterial Blood Gason 34-79-9704JEG Base Excess-1.5 mmol/LNormal-3.0-3.0[facility] Physician [facility] Adult Care UnitComment on above:Performed By: #### ABG ####Point of Care testing,ABG Frac Inspired O230 %NormalThe [facility] Physician GroupComment on above:Performed By: #### ABG ####Point of Care testing,ABG Oxygen Content5.9 mmol/LLow6.6-9.7The [facility]ician Group Comment on above:Performed By: #### ABG ####Point of Care testing,ABG Oxygen Eibzykenll85.8 %Vjgpnw46.0-100.0[facility] Physician GroupComment on above: Performed By: #### ABG ####Point of Care testing,ABG LUY395.8 mm[Hg]Off scale low35.0-45.0The [facility] Physician GroupComment on above:Performed By: #### ABG ####Point of Care testing,ABG MVUP6AsqphdQviFrye Regional [facility] Center [facility] Physician GroupComment on above:Performed By: #### ABG ####Point of Care testing,ABG PH7.50High 7.35-7.45The [facility] Physician [facility] Care UnitComment on above:Performed By: #### ABG ####Point of Care testing,ABG CI0339.7 mm[Hg]High80.0-100.0The [facility] Physician GroupComment on above:Performed By: #### ABG ####Point of Care testing,ABG TV450 mLNormalThe [facility] Physician GroupComment on above: Performed By: #### ABG ####Point of Care testing,CO2 [Moles/Vol]21.9 mmol/LLow 23.0-27.0[facility] Physician GroupComment on above:Performed By: #### ABG ####Point of Care testing,HCO3 (Bld) [Moles/Vol]21.0 mmol/LLow23.0-29.0The [facility] Physician GroupComment on above:Performed By: #### ABG ####Point of Care testing,Respiratory CriticalHCA Florida Lawnwood Hospital Physician GroupComment on above:Result Comment: Critical Value called on: 11/09/2024 at 20:53PERFORMED BY:[facility], [place] [phone] MEDICAL DIRECTORCARLOS VÁZQUEZ M.D.Performed By: #### ABG ####Point of Care testing,VBG Draw SiteRight RadialHCA Florida Lawnwood Hospital Physician GroupComment on above:Performed By: #### ABG ####Point of Care testing,ABG Base Excess-9.3 mmol/LLow-3.0-3.0The [facility] Group Comment on above:Performed By: #### ABG ####Point of Care testing,ABG Frac Inspired O230 %NormalSt. Joseph'S Hospital Physician GroupComment on above:Performed By: #### ABG ####Point of Care testing,ABG Oxygen Content5.8 mmol/LLow6.6-9.7The [facility] Physician GroupComment on above:Performed By: #### ABG ####Point of Care testing,ABG Oxygen Gcvtzdkhlm33.4 %Zntrlb63.0-100.0[facility] Physician GroupComment on above:Performed By: #### ABG ####Point of Care testing,ABG PCO2 33.9 mm[Hg]Low35.0-45.0[facility] Physician GroupComment on above:Performed By: #### ABG ####Point of Care testing,ABG MIEU8TmpblyYodFrye Regional Medical Center [facility] Physician GroupComment on above:Performed By: #### ABG ####Point of Care testing,ABG PH 7.30Low7.35-7.45[facility] Physician GroupComment on above:Performed By: #### ABG ####Point of Care testing,ABG YP7882.4 mm[Hg]Off scale high80.0-100.0[facility] Physician GroupComment on above:Performed By: #### ABG ####Point of Care testing,ABG TV450 mLNormalThe [facility] Physician GroupComment on above: Performed By: #### ABG ####Point of Care testing,CO2 [Moles/Vol]17.3 mmol/LLow 23.0-27.0The [facility] Physician GroupComment on above:Performed By: #### ABG ####Point of Care testing,HCO3 (Bld) [Moles/Vol]16.2 mmol/LLow23.0-29.0The [facility] Physician GroupComment on above:Performed By: #### ABG ####Point of Care testing,Respiratory CriticalNoFrye Regional Medical Center [facility] Physician GroupComment on above:Result Comment: Critical Value called on: 11/09/2024 at 13:18PERFORMED BY:[place] [address] [address] [place], [place] [phone] MEDICAL DIRECTORCARLOS VÁZQUEZ M.D.Performed By: #### ABG ####Point of Care testing,Set Respiratory Gcvs84BlhpcuRjkHCA Florida Lawnwood Hospital Physician GroupComment on above:Performed By: #### ABG ####Point of Care testing,VBG Draw SiteArtlineHCA Florida Lawnwood Hospital Physician [facility] Care UnitComment on above: Performed By: #### ABG ####Point of Care testing,Ventilator ModeACHCA Florida Lawnwood Hospital Physician [facility] Care UnitComment on above:Performed By: #### ABG ####Point of Care testing,ABG Base Excess-8.2 mmol/LLow-3.0-3.0[facility]ician Group Comment on above:Order Comment: drawn from HD catheter by RNPerformed By: #### ABG ####Point of Care testing,ABG Frac Inspired O230 %NormalThe [facility] Physician GroupComment on above:Order Comment: drawn from HD catheter by RN Performed By: #### ABG ####Point of Care testing,ABG Oxygen Content4.8 mmol/LLow 6.6-9.7The [facility] Physician GroupComment on above:Order Comment: drawn from HD catheter by RNPerformed By: #### ABG ####Point of Care testing,ABG Oxygen Osqvejhelt18.3 %Low95.0-100.0The [facility] Physician GroupComment on above:Order Comment: drawn from HD catheter by RNPerformed By: #### ABG ####Point of Care testing,ABG TZU136.3 mm[Hg]Watgdp34.0-45.0The [facility] Physician GroupComment on above:Order Comment: drawn from HD catheter by RNPerformed By: #### ABG ####Point of Care testing,ABG MZFT0ZmstrfRodBroward Health Imperial Point Physician GroupComment on above:Order Comment: drawn from HD catheter by RNPerformed By: #### ABG ####Point of Care testing,ABG PH7.29Low7.35-7.45The [facility] Group Comment on above:Order Comment: drawn from HD catheter by RNPerformed By: #### ABG ####Point of Care testing,ABG PO250.1 mm[Hg]Low80.0-100.0The [facility] Physician GroupComment on above:Order Comment: drawn from HD catheter by RN Performed By: #### ABG ####Point of Care testing,ABG TV450 mLNormalThe [facility] Physician GroupComment on above:Order Comment: drawn from HD catheter by RN Performed By: #### ABG ####Point of Care testing,CO2 [Moles/Vol]19.0 mmol/LLow 23.0-27.0The [facility] Physician GroupComment on above:Order Comment: drawn from HD catheter by RNPerformed By: #### ABG ####Point of Care testing,HCO3 (Bld) [Moles/Vol]17.8 mmol/LLow23.0-29.0The [facility] Physician GroupComment on above: Order Comment: drawn from HD catheter by RNPerformed By: #### ABG ####Point of Care testing,Respiratory CriticalNoFrye Regional [facility] Physician GroupComment on above:Order Comment: drawn from HD catheter by RNResult Comment: Critical Value called on: 11/09/2024 at 13:16PERFORMED BY:[facility] [place], [place] [phone] MEDICAL JACKELYN VÁZQUEZ M.D.Performed By: #### ABG ####Point of Care testing,Set Respiratory Dsqa47AkydapUqaFrye Regional [facility] Center [facility] Physician GroupComment on above:Order Comment: drawn from HD catheter by RNPerformed By: #### ABG ####Point of Care testing,VBG Draw SiteOtherNoFrye Regional [facility] Physician GroupComment on above:Order Comment: drawn from HD catheter by RNPerformed By: #### ABG ####Point of Care testing, Ventilator ModeACNoFrye Regional [facility] Physician GroupComment on above:Order Comment: drawn from HD catheter by RNPerformed By: #### ABG ####Point of Care testing,ABG Base Excess-8.0 mmol/LLow-3.0-3.0[facility] Physician Group Comment on above:Performed By: #### ABG ####Point of Care testing,ABG Frac Inspired O230 %NormalSt. Joseph'S Hospital Physician GroupComment on above:Performed By: #### ABG ####Point of Care testing,ABG Oxygen Content5.5 mmol/LLow6.6-9.7The [facility] Physician GroupComment on above:Performed By: #### ABG ####Point of Care testing,ABG Oxygen Tebciqtvpz97.8 %Xrceky09.0-100.0[facility] Physician GroupComment on above:Performed By: #### ABG ####Point of Care testing,ABG PCO2 35.6 mm[Hg]Czjcwb87.0-45.0[facility] Physician GroupComment on above: Performed By: #### ABG ####Point of Care testing,ABG XSOK9ImysehYzeFrye Regional Medical Center [facility] Physician GroupComment on above:Performed By: #### ABG ####Point of Care testing,ABG PH7.31Low7.35-7.45[facility] Physician GroupComment on above: Performed By: #### ABG ####Point of Care testing,ABG HA7524.3 mm[Hg]High 80.0-100.0[facility] Physician GroupComment on above:Performed By: #### ABG ####Point of Care testing,ABG TV450 mLNormalThe [facility] Physician GroupComment on above:Performed By: #### ABG ####Point of Care testing,CO2 [Moles/Vol]18.6 mmol/LLow23.0-27.0The [facility] Physician GroupComment on above:Performed By: #### ABG ####Point of Care testing,HCO3 (Bld) [Moles/Vol]17.5 mmol/LLow23.0-29.0 [facility] Physician GroupComment on above:Performed By: #### ABG ####Point of Care testing,Respiratory CriticalNoFrye Regional Medical Center Alexander Campus Physician GroupComment on above:Result Comment: Critical Value called on: 11/09/2024 at 06:07PERFORMED BY:[address] [place], [place] [phone] MEDICAL DIRECTORCARLOS VÁZQUEZ M.D.Performed By: #### ABG ####Point of Care testing,Set Respiratory Putp75BmyzelMtnHCA Florida Lawnwood Hospital Physician GroupComment on above:Performed By: #### ABG ####Point of Care testing,VBG Draw SiteArtlineHCA Florida Lawnwood Hospital Physician GroupComment on above: Performed By: #### ABG ####Point of Care testing,Ventilator ModeACNoFrye Regional [facility] Center [facility] Physician GroupComment on above:Performed By: #### ABG ####Point of Care testing,Basic Metabolic Panelon 91-45-5917Nlyfy gap [Moles/Vol]19.1 mmol/L High6.0-15.0The [facility] Physician GroupComment on above:Performed By: #### BMP ####[address] [address] [place] Calcium [Mass/Vol]9.2 mg/dLNormal8.6-10.3The [facility] Physician GroupComment on above:Performed By: #### BMP ####[address] [place] [address] USAChloride [Moles/Vol]106 mmol/UQalhhk42-590Wxn [facility] Physician GroupComment on above:Performed By: #### BMP ####[address] [place] [address] USACO2 [Moles/Vol]19.2 mmol/LLow21.0-31.0The [facility] Physician GroupComment on above:Performed By: #### BMP ####[address] [address] USACreatinine [Mass/Vol]3.48 mg/dLHigh0.60-1.20ThVal[facility] Comment on above:Performed By: #### BMP ####[address] [address] USACreatinine Clr Calc Sromusot06.92NormalThValor Health Physician GroupComment on above:Result Comment: PERFORMED BY:[address] [place], [place] [phone] MEDICAL JACKELYN VÁZQUEZ M.D.Performed By: #### BMP ####[address] [address] USAGFR/1.73 sq M.predicted MDRD (S/P/Bld) [Vol rate/Area]13.238 mL/min/{1.73_m2}NormalThe [facility] Physician GroupComment on above:Performed By: #### BMP ####[address] [address] USAGlucose [Mass/Vol]113 mg/oDSjpw46-689Nyb [facility] Physician GroupComment on above:Result Comment: Random Glucose Reference Range is dependent on time and content of last meal. Glucose of more than 200 mg/dL in a nonstressed, ambulatory subject supports the diagnosis of Diabetes Mellitus. ADA recommended reference rangePerformed By: #### BMP ####[address] [address] USAPotassium [Moles/Vol]3.3 mmol/LLow3.5-5.1The [facility] Physician GroupComment on above:Performed By: #### BMP ####[address] [address] USASodium [Moles/Vol]141 mmol/LHzzder589-382Llt [facility] Physician GroupComment on above:Performed By: #### BMP ####[address] [address] USAUrea nitrogen [Mass/Vol]62 mg/dLHigh7-25The [facility] Physician GroupComment on above: Performed By: #### BMP ####[address] [address] USADiff and CBCon 92-36-2149Vhebzzxdumxr Ql (Bld)Slight NormalThe [facility] Physician GroupComment on above:Performed By: #### DIFF CBC ####[address] [address] USABand form neutrophils/100 WBC (Bld)2 %Normal0-5The [facility] Physician GroupComment on above:Performed By: #### DIFF CBC ####[address] [address] USAErythrocyte distribution width (RBC) [Ratio] 16.7 %High11.9-15.3The [facility] Physician GroupComment on above:Performed By: #### DIFF CBC ####[address] [address] USAHematocrit (Bld) [Volume fraction]25.0 %Low34.0-46.4The [facility] Physician GroupComment on above:Performed By: #### DIFF CBC ####[address] [address] USAHemoglobin (Bld) [Mass/Vol]8.2 g/dLLow11.8-15.4The [facility] Physician GroupComment on above: Performed By: #### DIFF CBC ####[address] [address] USAHypochromasiaModerateNormBroward Health Imperial Point Physician GroupComment on above:Performed By: #### DIFF CBC ####[address] [address] USALarge PlateletsSlightNormBroward Health Imperial Point Physician GroupComment on above:Result Comment: PERFORMED BY:[address] [address] [address] [place]ZW[place], [place] [phone] MEDICAL DIRECTORCARLOS VÁZQUEZ M.D.Performed By: #### DIFF CBC ####[address] [address] USALymphocytes/100 WBC (Bld)5 %Ilz45-19Ldl [facility] Physician GroupComment on above:Performed By: #### DIFF CBC ####[address] [address] [facility] (RBC) [Entitic mass]27.5 tlXlypgr21.7-34.3[facility] Comment on above:Performed By: #### DIFF CBC ####[address] [address] [facility] (RBC) [Entitic vol]83.5 fLNormal 80-100The [facility] Physician GroupComment on above:Performed By: #### DIFF CBC ####[id number] USAMean Corpuscular HGB Conc33.0 g/eNBypuvc63.0-35.0The [facility] Physician GroupComment on above:Performed By: #### DIFF CBC ####[address] [address] USAMetamyelocytes7 %High0-0The [facility] Physician GroupComment on above:Performed By: #### DIFF CBC ####[address] [address] USAMonocytes/100 WBC (Bld)8 %Normal2-11The [facility] Physician GroupComment on above:Performed By: #### DIFF CBC ####[address] [address] USAMyelocytes6 %High0-0The [facility] Physician GroupComment on above: Performed By: #### DIFF CBC ####[address] [address] USANucleated Red Blood Cell1 /100{WBC}High0-0The [facility] Physician GroupComment on above:Performed By: #### DIFF CBC ####[address] [place] [address] [place] OvalocytesSlightNoFrye Regional Medical Center [facility] Physician GroupComment on above:Performed By: #### DIFF CBC ####[id number] USAPlatelet EstimateNormalNormalNormBroward Health Imperial Point Physician Group Comment on above:Performed By: #### DIFF CBC ####[id number] USAPlatelet mean volume (Bld) [Entitic vol]8.0 fLNormal6.3-10.7The [facility] Physician GroupComment on above:Performed By: #### DIFF CBC ####[place] [address] USAPlatelets (Bld) [#/Vol]212 10*3/lCMwxtyo012-197Lvf [facility] Physician GroupComment on above:Performed By: #### DIFF CBC ####[id number] USAPoikilocytosisSlight NormalSt. Joseph'S Hospital Physician GroupComment on above:Performed By: #### DIFF CBC ####[address] [place] PolychromasiaSlightNormBroward Health Imperial Point Physician GroupComment on above:Performed By: #### DIFF CBC ####[id number] USAPromyelocytes2 %High0-0The [facility] Physician GroupComment on above:Performed By: #### DIFF CBC ####[place] [address] USARBC (Bld) [#/Vol]2.99 10*6/uLLow3.60-5.00The [facility] Physician GroupComment on above:Performed By: #### DIFF CBC ####[id number] [place] Segmented neutrophils/100 WBC (Bld)72 %Pwpc98-10QggSt. Joseph'S Hospital Physician Group Comment on above:Performed By: #### DIFF CBC ####[address] [address] USAStomatocytesSlightNormalThe [facility] Physician [facility] UnitComment on above:Performed By: #### DIFF CBC ####[phone] USAWBC (Bld) [#/Vol]12.6 10*3/uLHigh3.8-11.6The [facility] Physician [facility] Care UnitComment on above:Performed By: #### DIFF CBC ####[address] USAWhite Blood Count12.6 [CFU]/mLHigh3.8-11.6The [facility] Comment on above:Performed By: #### DIFF CBC ####[address] USAISTAT Glucose Pocon 07-00-3965Gvpzsbl [Mass/Vol]92 mg/eJDuexsz88-119Yex [facility] Physician [facility] UnitComment on above: Result Comment: PERFORMED BY:[address] [place], [place] [phone] MEDICAL JACKELYN VÁZQUEZ M.D.Performed By: #### ISGLU ####Point of Care testing,Glucose [Mass/Vol]103 mg/iZQotcnr88-994Zjt [facility] Physician [facility] UnitComment on above:Result Comment: PERFORMED BY:[address] [place], [place] [phone] MEDICAL JACKELYN VÁZQUEZ M.D.Performed By: #### ISGLU ####Point of Care testing,Triglycerideson 30-59-8332Ftyamncvranb [Mass/Vol]212 mg/fMUtdl19-357Udd [facility] Physician GroupComment on above: Result Comment: TRIG ATP III CLASSIFICATION TRIG less than 150 mg/dL Normal TRIG 150-199 mg/dL Borderline high TRIG 200-500 mg/dL High TRIG greater than 500 mg/dL Very high Standard traceable to the Center for Disease Conrtrol and Prevention (CDC) test method.PERFORMED BY:[address] [place], [place] [phone] MEDICAL JACKELYN VÁZQUEZ M.D.Performed By: #### TRIG ####[address] [place] [address] USAVancomycin,Randomon 11-09-2024 Vancomycin,Qvdebz90.9Cbmeoh0.0-20.0The [facility] Physician GroupComment on above:Order Comment: Date of last dose?: 20241105 Time of last dose?: 99Result Comment: Last dose: -PERFORMED BY:[address] [address] [address] [place], [place] [phone] MEDICAL JACKELYN VÁZQUEZ M.D.Performed By: #### VANCR ####[address] [address] USAXR chest 1V portableon 10-06-2768CV chest 1V portableNoFrye Regional Medical Center Alexander Campus Physician GroupArterial Blood Gason 29-70-9528LFD Base Excess-6.4 mmol/LLow-3.0-3.0The [facility] Physician GroupComment on above: Performed By: #### ABG ####Point of Care testing,ABG Frac Inspired O230 %Normal The [facility] Physician GroupComment on above:Performed By: #### ABG ####Point of Care testing,ABG Oxygen Content5.8 mmol/LLow6.6-9.7The [facility] Physician GroupComment on above:Performed By: #### ABG ####Point of Care testing,ABG Oxygen Opztsanxux11.7 %Iqmtci11.0-100.0The [facility] Physician GroupComment on above:Performed By: #### ABG ####Point of Care testing,ABG MJM169.7 mm[Hg]Normal 35.0-45.0The [facility] Physician GroupComment on above:Performed By: #### ABG ####Point of Care testing,ABG WDOU1DdzobcBuu [facility] Physician GroupComment on above:Performed By: #### ABG ####Point of Care testing,ABG PH7.33Low7.35-7.45 The [facility] Physician GroupComment on above:Performed By: #### ABG ####Point of Care testing,ABG EF7242.8 mm[Hg]High80.0-100.0[facility] Comment on above:Performed By: #### ABG ####Point of Care testing,ABG TV450 mL NormalThe [facility] Physician GroupComment on above:Performed By: #### ABG ####Point of Care testing,CO2 [Moles/Vol]20.0 mmol/LLow23.0-27.0The [facility] Physician GroupComment on above:Performed By: #### ABG ####Point of Care testing,HCO3 (Bld) [Moles/Vol]18.9 mmol/LLow23.0-29.0The [facility] Physician GroupComment on above:Performed By: #### ABG ####Point of Care testing, Respiratory CriticalNormBroward Health Imperial Point Physician GroupComment on above:Result Comment: Critical Value called on: 11/08/2024 at 06:38PERFORMED BY:[address] [place], [place] [phone] MEDICAL DIRECTORCARLOS VÁZQUEZ M.D.Performed By: #### ABG ####Point of Care testing,Set Respiratory Xrlx04IjiqcfLuw [place] Physician [facility] Care UnitComment on above:Performed By: #### ABG ####Point of Care testing,VBG Draw SiteArtline NormalThe [facility] Physician GroupComment on above:Performed By: #### ABG ####Point of Care testing,Ventilator ModeACNoFrye Regional [facility]ician Group Comment on above:Performed By: #### ABG ####Point of Care testing,Basic Metabolic Panelon 87-19-1329Kupno gap [Moles/Vol]16.8 mmol/LHigh6.0-15.0The [facility] Physician GroupComment on above:Performed By: #### BMP ####[address] [address] USACalcium [Mass/Vol]8.7 mg/dLNormal8.6-10.3The [facility] Physician GroupComment on above:Performed By: #### BMP ####[address] [address] USAChloride [Moles/Vol]107 mmol/ZWvpdkh92-120Mzj [facility] Physician [facility] Comment on above:Performed By: #### BMP ####[address] [address] USACO2 [Moles/Vol]19.4 mmol/LLow21.0-31.0The [facility] Physician GroupComment on above:Performed By: #### BMP ####[address] [address] USACreatinine [Mass/Vol] 3.21 mg/dLHigh0.60-1.20The [facility] Physician GroupComment on above:Performed By: #### BMP ####[address] [address] USACreatinine Clr Calc Lykfdknz89.18NormalThValor Health Physician Group Comment on above:Result Comment: PERFORMED BY:[address] [place], [place] [phone] MEDICAL JACKELYN VÁZQUEZ M.D.Performed By: #### BMP ####[address] [address] USAGFR/1.73 sq M.predicted MDRD (S/P/Bld) [Vol rate/Area]14.585 mL/min/{1.73_m2}NormalThe [facility] Physician GroupComment on above:Performed By: #### BMP ####[address] [address] USAGlucose [Mass/Vol]112 mg/kFGhqb88-033 The [facility] Physician GroupComment on above:Result Comment: Random Glucose Reference Range is dependent on time and content of last meal. Glucose of more than 200 mg/dL in a nonstressed, ambulatory subject supports the diagnosis of Diabetes Mellitus. ADA recommended reference rangePerformed By: #### BMP ####[address] [address] [place] Potassium [Moles/Vol]3.2 mmol/LLow3.5-5.1The [facility] Physician GroupComment on above:Performed By: #### BMP ####[address] [address] USASodium [Moles/Vol]140 mmol/TBhbjfk318-122Spi [facility] Physician GroupComment on above:Performed By: #### BMP ####[address] USAUrea nitrogen [Mass/Vol]56 mg/dLHigh7-25The [facility] Physician GroupComment on above: Performed By: #### BMP ####[address] [address] USADiff and CBCon 46-60-9095Yeputrbvwedc Ql (Bld)Slight NormalThe [facility] Physician GroupComment on above:Performed By: #### PATH SLIDE REV, DIFF CBC ####[place] [address] USABand form neutrophils/100 WBC (Bld)6 %High0-5The [facility] Physician GroupComment on above:Performed By: #### PATH SLIDE REV, DIFF CBC ####[place] [address] [place] Erythrocyte distribution width (RBC) [Ratio]16.7 %High11.9-15.3The [facility] Physician GroupComment on above:Performed By: #### PATH SLIDE REV, DIFF CBC ####[id number] USAGiant Platelet Tally2 /100{WBC}NormalThe [facility] Physician GroupComment on above: Performed By: #### PATH SLIDE REV, DIFF CBC ####[address] [address] USAHematocrit (Bld) [Volume fraction]26.5 %Low34.0-46.4The [facility] Physician GroupComment on above:Performed By: #### PATH SLIDE REV, DIFF CBC ####[address] [address] USAHemoglobin (Bld) [Mass/Vol]8.8 g/dLLow11.8-15.4The [facility] Physician GroupComment on above:Performed By: #### PATH SLIDE REV, DIFF CBC ####[address] [address] USAHypochromasiaModerateNoFrye Regional [facility] Physician GroupComment on above: Performed By: #### PATH SLIDE REV, DIFF CBC ####[address] [address] USALarge PlateletsSlightNoFrye Regional Medical Center [facility] Physician GroupComment on above:Result Comment: PERFORMED BY:[address] [place], [place] [phone] MEDICAL DIRECTORCARLOS VÁZQUEZ M.D.Performed By: #### PATH SLIDE REV, DIFF CBC ####[address] [address] [place] Lymphocytes/100 WBC (Bld)2 %Sly79-42Pib [facility] Physician GroupComment on above:Performed By: #### PATH SLIDE REV, DIFF CBC ####[address] [address] [facility] (RBC) [Entitic mass]27.7 pgNormal 24.7-34.3The [facility] Physician GroupComment on above:Performed By: #### PATH SLIDE REV, DIFF CBC ####[address] [address] [facility] (RBC) [Entitic vol]82.9 fKYsxrix49-435Dqf [facility] Physician GroupComment on above:Performed By: #### PATH SLIDE REV, DIFF CBC ####[address] [address] USAMean Corpuscular HGB Conc33.4 g/fDSvgith86.0-35.0The [facility] Physician GroupComment on above: Performed By: #### PATH SLIDE REV, DIFF CBC ####[address] [address] USAMetamyelocytes7 %High0-0The [facility] Physician GroupComment on above:Performed By: #### PATH SLIDE REV, DIFF CBC ####[address] [address] [place] Monocytes/100 WBC (Bld)8 %Normal2-11The [facility] Physician GroupComment on above:Performed By: #### PATH SLIDE REV, DIFF CBC ####[address] [address] USAMyelocytes2 %High0-0The [facility] Physician GroupComment on above:Performed By: #### PATH SLIDE REV, DIFF CBC ####[address] [address] [place] Nucleated Red Blood Cell3 /100{WBC}High0-0The [facility] Physician GroupComment on above:Performed By: #### PATH SLIDE REV, DIFF CBC ####[address] [address] USAOvalocytesSlightNormBroward Health Imperial Point Physician GroupComment on above:Performed By: #### PATH SLIDE REV, DIFF CBC ####[address] [address] USAPlasma Cells3 %High0-0The [facility] Physician GroupComment on above:Performed By: #### PATH SLIDE REV, DIFF CBC ####[address] [address] USAPlatelet EstimateNormalNormalNormBroward Health Imperial Point Physician GroupComment on above:Performed By: #### PATH SLIDE REV, DIFF CBC ####[address] [address] [place] Platelet mean volume (Bld) [Entitic vol]8.0 fLNormal6.3-10.7The [facility] Physician GroupComment on above:Result Comment: PERFORMED BY:[address] [place], [place] [phone] MEDICAL DIRECTORCARLOS VÁZQUEZ M.D.Performed By: #### PATH SLIDE REV, DIFF CBC ####[address] [address] [place] Platelets (Bld) [#/Vol]200 10*3/eTIogbwl199-238Mzn [facility] Comment on above:Performed By: #### PATH SLIDE REV, DIFF CBC ####[address] [address] USAPoikilocytosisSlight NormalThe [facility] Physician GroupComment on above:Performed By: #### PATH SLIDE REV, DIFF CBC ####[address] [address] USAPolychromasiaModerateNormBroward Health Imperial Point Physician GroupComment on above:Performed By: #### PATH SLIDE REV, DIFF CBC ####[address] [address] USARBC (Bld) [#/Vol]3.19 10*6/uLLow 3.60-5.00The [facility] Physician GroupComment on above:Performed By: #### PATH SLIDE REV, DIFF CBC ####[address] [address] USARouleauxSlightNoFrye Regional [facility] Physician GroupComment on above: Performed By: #### PATH SLIDE REV, DIFF CBC ####[address] [address] USASegmented neutrophils/100 WBC (Bld)72 %Wbly29-60Nsx [facility] Physician GroupComment on above:Performed By: #### PATH SLIDE REV, DIFF CBC ####[address] [address] USAStomatocytesSlightNoFrye Regional [facility] Physician GroupComment on above:Performed By: #### PATH SLIDE REV, DIFF CBC ####[address] [address] USAWBC (Bld) [#/Vol]10.2 10*3/uLNormal 3.8-11.6The [facility] Physician GroupComment on above:Performed By: #### PATH SLIDE REV, DIFF CBC ####[address] [address] USAWhite Blood Count10.2 [CFU]/mLNormal3.8-11.6The [facility] Physician GroupComment on above:Performed By: #### PATH SLIDE REV, DIFF CBC ####[address] [address] [place] [address] USAGlucose Poct Glucometerson 25-13-8096Zteldhs8SupnrhYfb [place] Physician [facility] Care UnitComment on above:Result Comment: Glu2: WILL NOTIFY DR/RNPERFORMED BY:[address] [address] [place], [place] [phone] MEDICAL JACKELYN VÁZQUEZ M.D.Performed By: #### GLULS ####Point of Care testing, Glucose [Mass/Vol]52 mg/dLOff scale [facility] Physician [facility] Care UnitComment on above:Result Comment: Random Glucose Reference Range is dependent on time and content of last meal. Glucose of more than 200 mg/dL in a nonstressed, ambulatory subject supports the diagnosis of Diabetes Mellitus.Performed By: #### GLULS ####Point of Care testing,Hhrgzqr7NngkllKjw[address] Physician [facility] Comment on above:Result Comment: Glu2: Will Repeat TestPERFORMED BY:[address] [address] [place], [place] [phone] MEDICAL JACKELYN VÁZQUEZ M.D.Performed By: #### GLULS ####Point of Care testing,Glucose [Mass/Vol]32 mg/dLOff scale [facility] Physician Group Comment on above:Result Comment: Random Glucose Reference Range is dependent on time and content of last meal. Glucose of more than 200 mg/dL in a nonstressed, ambulatory subject supports the diagnosis of Diabetes Mellitus.Performed By: #### GLULS ####Point of Care testing,ISTAT Glucose Pocon 70-90-7516Nnhbaqn [Mass/Vol]100 mg/kWVerhet53-288Gcu [place] Physician GroupComment on above: Result Comment: PERFORMED BY:[address] [address] [place], [place] [phone] MEDICAL JACKELYN VÁZQUEZ M.D.Performed By: #### ISGLU ####Point of Care testing,Glucose [Mass/Vol]95 mg/oGXsukwj60-835Mjc [place] Physician GroupComment on above:Result Comment: PERFORMED BY:[address] [address] [place], [place] [phone] MEDICAL JACKELYN VÁZQUEZ M.D.Performed By: #### ISGLU ####Point of Care testing,Glucose [Mass/Vol]99 mg/nYGajcie32-898Qzh [facility] Physician GroupComment on above:Result Comment: PERFORMED BY:[address] RICKETTSRadhaHUIHEBRON, [place] [phone] MEDICAL JACKELYN VÁZQUEZ M.D.Performed By: #### ISGLU ####Point of Care testing,[place] 49-93-6383IBewnpgOvp [facility] Physician [facility] UnitPathologist Slide Reviewon 54-52-2254Mzsxrimugcy Slide ReviewOrdered Path ReviewNoFrye [facility] Physician GroupComment on above:Result Comment: PERFORMED BY:[address] [place]ETZELHEBRON, [place] [phone] MEDICAL JACKELYN VÁZQUEZ M.D.Performed By: #### PATH SLIDE REV, DIFF CBC ####[address] [address] [place] Vancomycin,Randomon 51-27-2226Whlinbnmdx,Krigcj38.6High5.0-20.0The [facility] Physician GroupComment on above:Order Comment: Date of last dose?: 20241105 Time of last dose?: 2300Result Comment: Last dose: -PERFORMED BY:[address] RICKETTSRadhaHUIHEBRON, [place] [phone] BUD VÁZQUEZ M.D.Performed By: #### VANCR ####[address] [address] USAXR chest 1V portableon 96-88-7392RR chest 1V portableNoFrye Regional [facility] Physician [facility] Care UnitArterial Blood Gason 31-25-5445SQD Base Excess-5.4 mmol/LLow-3.0-3.0The [facility] Physician GroupComment on above:Performed By: #### ABG ####Point of Care testing,ABG Frac Inspired O230 %NormalThe [facility] Physician GroupComment on above:Performed By: #### ABG ####Point of Care testing,ABG Oxygen Content6.1 mmol/LLow6.6-9.7The [facility] Physician GroupComment on above:Performed By: #### ABG ####Point of Care testing,ABG Oxygen Eiohqqyhux11.1 %Oudotp53.0-100.0The [facility] Physician GroupComment on above:Performed By: #### ABG ####Point of Care testing,ABG PCO2 33.3 mm[Hg]Low35.0-45.0The [facility] Physician GroupComment on above:Performed By: #### ABG ####Point of Care testing,ABG AVHV8WpgbpvLie [facility] Physician GroupComment on above:Performed By: #### ABG ####Point of Care testing,ABG PH 7.84Vgatji8.35-7.45The [facility] Physician GroupComment on above:Performed By: #### ABG ####Point of Care testing,ABG VP0001.8 mm[Hg]High80.0-100.0The [facility] Physician GroupComment on above:Performed By: #### ABG ####Point of Care testing,ABG TV450 mLNormalThe [facility] Physician GroupComment on above: Performed By: #### ABG ####Point of Care testing,CO2 [Moles/Vol]20.1 mmol/LLow 23.0-27.0The [facility] Physician GroupComment on above:Performed By: #### ABG ####Point of Care testing,HCO3 (Bld) [Moles/Vol]19.0 mmol/LLow23.0-29.0The [facility] Physician GroupComment on above:Performed By: #### ABG ####Point of Care testing,Respiratory CriticalNormBroward Health Imperial Point Physician GroupComment on above:Result Comment: Critical Value called on: 11/07/2024 at 17:37PERFORMED BY:[address] [address] [address] [place], [place] [phone] MEDICAL DIRECTORMARJORGE S KATHIE M.D.Performed By: #### ABG ####Point of Care testing,Set Respiratory Aufj51MvwmhlXdwHCA Florida Lawn[facility] Hospital Physician GroupComment on above:Performed By: #### ABG ####Point of Care testing,VBG Draw SiteArtlineHCA Florida Lawnwood Hospital Physician GroupComment on above: Performed By: #### ABG ####Point of Care testing,Ventilator ModeACNoFrye [facility] Physician GroupComment on above:Performed By: #### ABG ####Point of Care testing,ABG Base Excess-5.7 mmol/LLow-3.0-3.0[facility]ician Group Comment on above:Performed By: #### ABG ####Point of Care testing,ABG Frac Inspired O230 %NormalSt. Joseph'S Hospital Physician GroupComment on above:Performed By: #### ABG ####Point of Care testing,ABG Oxygen Content5.9 mmol/LLow6.6-9.7The [facility] Physician GroupComment on above:Performed By: #### ABG ####Point of Care testing,ABG Oxygen Djblcfwmfv00.5 %Civxaj52.0-100.0[facility] Physician GroupComment on above:Performed By: #### ABG ####Point of Care testing,ABG PCO2 31.8 mm[Hg]Low35.0-45.0[facility] Physician GroupComment on above:Performed By: #### ABG ####Point of Care testing,ABG CDGU8YuwpldTrpHCA [facility] Lawn[facility] Physician GroupComment on above:Performed By: #### ABG ####Point of Care testing,ABG PH 7.56Phpfwc7.35-7.45[facility] Physician GroupComment on above:Performed By: #### ABG ####Point of Care testing,ABG PO289.4 mm[Hg]Oeqoaf36.0-100.0[facility] Physician GroupComment on above:Performed By: #### ABG ####Point of Care testing,ABG TV450 mLNormalThe [facility] Physician GroupComment on above: Performed By: #### ABG ####Point of Care testing,CO2 [Moles/Vol]19.5 mmol/LLow 23.0-27.0The [facility] Physician GroupComment on above:Performed By: #### ABG ####Point of Care testing,HCO3 (Bld) [Moles/Vol]18.5 mmol/LLow23.0-29.0The [facility] Physician GroupComment on above:Performed By: #### ABG ####Point of Care testing,Respiratory CriticalNoFrye Regional Medical Center [facility] Physician GroupComment on above:Result Comment: Critical Value called on: 11/07/2024 at 12:06PERFORMED BY:[facility] [place], [place] [phone] MEDICAL DIRECTORCARLOS VÁZQUEZ M.D.Performed By: #### ABG ####Point of Care testing,Set Respiratory Ezny56VpqnbkOmy[address] [place] [address] Physician GroupComment on above:Performed By: #### ABG ####Point of Care testing,VBG Draw SiteArtlineHCA Florida Lawnwood Hospital Physician GroupComment on above: Performed By: #### ABG ####Point of Care testing,ABG Base Excess-7.0 mmol/LLow -3.0-3.0The [facility] Physician GroupComment on above:Performed By: #### ABG ####Point of Care testing,ABG Frac Inspired O230 %NormalThe [facility] Physician GroupComment on above:Performed By: #### ABG ####Point of Care testing,ABG Oxygen Content6.4 mmol/LLow6.6-9.7The [facility] Physician GroupComment on above: Performed By: #### ABG ####Point of Care testing,ABG Oxygen Mmffkywwmk14.0 % Xunkms02.0-100.0The [facility] Physician GroupComment on above:Performed By: #### ABG ####Point of Care testing,ABG JGW619.0 mm[Hg]Low35.0-45.0The [facility] Physician GroupComment on above:Performed By: #### ABG ####Point of Care testing,ABG QBAF4ZrsfcqWsnFrye Regional [facility] Physician GroupComment on above:Performed By: #### ABG ####Point of Care testing,ABG PH7.64Jxhktb1.35-7.45The [facility] Physician GroupComment on above:Performed By: #### ABG ####Point of Care testing,ABG PO295.5 mm[Hg]Xmajyx32.0-100.0The [facility] Physician GroupComment on above:Performed By: #### ABG ####Point of Care testing,ABG TV450 mLNormalThe [facility] Physician GroupComment on above:Performed By: #### ABG ####Point of Care testing,CO2 [Moles/Vol]18.1 mmol/LLow23.0-27.0[facility] Comment on above:Performed By: #### ABG ####Point of Care testing,HCO3 (Bld) [Moles/Vol]17.2 mmol/LLow23.0-29.0The [facility] Physician GroupComment on above: Performed By: #### ABG ####Point of Care testing,Respiratory CriticalNoFrye Regional [facility] Physician GroupComment on above:Result Comment: Critical Value called on: 11/07/2024 at 05:09PERFORMED BY:[facility] [place], [place] [phone] MEDICAL DIRECTORCARLOS VÁZQUEZ M.D.Performed By: #### ABG ####Point of Care testing,Set Respiratory Rate12 NormalThe [facility] Physician GroupComment on above:Performed By: #### ABG ####Point of Care testing,VBG Draw SiteArtlineNoFrye Regional [facility] Physician GroupComment on above:Performed By: #### ABG ####Point of Care testing,ABG Base Excess-5.9 mmol/LLow-3.0-3.0The [facility] Physician GroupComment on above: Performed By: #### ABG ####Point of Care testing,ABG Frac Inspired O230 %Normal The [facility] Physician GroupComment on above:Performed By: #### ABG ####Point of Care testing,ABG Oxygen Content6.8 mmol/LNormal6.6-9.7The [facility] Physician GroupComment on above:Performed By: #### ABG ####Point of Care testing,ABG Oxygen Jgyidnlkyg77.5 %Aucpjl46.0-100.0The [facility] Physician GroupComment on above:Performed By: #### ABG ####Point of Care testing,ABG BDQ238.7 mm[Hg]Off scale low35.0-45.0The [facility] Physician GroupComment on above:Performed By: #### ABG ####Point of Care testing,ABG OKMR1WzrvcySlrBroward Health [facility] Point Physician Group Comment on above:Performed By: #### ABG ####Point of Care testing,ABG PH7.42 Normal7.35-7.45The [facility] Physician GroupComment on above:Performed By: #### ABG ####Point of Care testing,ABG IG0083.0 mm[Hg]High80.0-100.0The [facility] Physician GroupComment on above:Performed By: #### ABG ####Point of Care testing,ABG TV450 mLNormalThe [facility] Physician GroupComment on above: Performed By: #### ABG ####Point of Care testing,CO2 [Moles/Vol]18.3 mmol/LLow 23.0-27.0The [facility] Physician GroupComment on above:Performed By: #### ABG ####Point of Care testing,HCO3 (Bld) [Moles/Vol]17.4 mmol/LLow23.0-29.0The [facility] Physician GroupComment on above:Performed By: #### ABG ####Point of Care testing,Respiratory CriticalNormBroward Health Imperial Point Physician GroupComment on above:Result Comment: Critical Value called on: 11/07/2024 at 00:37PERFORMED BY:[address], [place] [phone] MEDICAL DIRECTORCARLOS VÁZQUEZ M.D.Performed By: #### ABG ####Point of Care testing,Set Respiratory Ykff96HearyiXhqUniversity Hospitals Parma Medical CenterComment on above:Performed By: #### ABG ####Point of Care testing,VBG Draw SiteArtlineAitkin HospitalComment on above: Performed By: #### ABG ####Point of Care testing,Ventilator ModeACNoUniversity Hospitals Parma Medical CenterComment on above:Performed By: #### ABG ####Point of Care testing,Comprehensive Metabolic Panelon 21-85-5033Dtlqofa [Mass/Vol]2.4 g/dLLow3.5-5.7The [facility]richton Rehabilitation CenterComment on above:Performed By: #### CMP, HEPATIC, TRIG, DIFF CBC ####[address] [address] USAAlbumin/Globulin [Mass ratio]1.2 {ratio}NormalThe [facility]richton Rehabilitation CenterComment on above:Performed By: #### CMP, HEPATIC, TRIG, DIFF CBC ####[address] [address] USAALP [Catalytic activity/Vol]156 U/EDxnj91-924UwoOchsner Medical Center Comment on above:Performed By: #### CMP, HEPATIC, TRIG, DIFF CBC ####[address] [address] USAALT [Catalytic activity/Vol]917 U/LHigh7-52Ochsner Medical CenterComment on above: Performed By: #### CMP, HEPATIC, TRIG, DIFF CBC ####[address] [address] USAAnion gap [Moles/Vol]15.6 mmol/LHigh 6.0-15.0The [facility] Rehabilitation CenterComment on above:Performed By: #### CMP, HEPATIC, TRIG, DIFF CBC ####[address] [address] USAAST [Catalytic activity/Vol]661 U/AKajs74-00Cdo [facility] Rehabilitation CenterComment on above:Performed By: #### CMP, HEPATIC, TRIG, DIFF CBC ####[address] [address] [place] Bilirubin [Mass/Vol]0.7 mg/dLNormal0.3-1.0The [facility] Physician GroupComment on above:Performed By: #### CMP, HEPATIC, TRIG, DIFF CBC ####[place] [address] USACalcium [Mass/Vol]8.0 mg/dLLow 8.6-10.3The [facility] Physician GroupComment on above:Performed By: #### CMP, HEPATIC, TRIG, DIFF CBC ####[place] [address] USAChloride [Moles/Vol]109 mmol/EBthh80-445Gxx [facility] Physician GroupComment on above:Performed By: #### CMP, HEPATIC, TRIG, DIFF CBC ####[place] [address] USACO2 [Moles/Vol]18.8 mmol/LLow21.0-31.0The [facility] Physician GroupComment on above: Performed By: #### CMP, HEPATIC, TRIG, DIFF CBC ####[place] [address] USACreatinine [Mass/Vol]2.93 mg/dL Significant change down0.60-1.20The [facility] Physician GroupComment on above: Performed By: #### CMP, HEPATIC, TRIG, DIFF CBC ####[place] [address] USACreatinine Clr Calc Vztitlur11.44 NormalThe [facility] Physician GroupComment on above:Performed By: #### CMP, HEPATIC, TRIG, DIFF CBC ####[place] [address] USAGFR/1.73 sq M.predicted MDRD (S/P/Bld) [Vol rate/Area] 16.273 mL/min/{1.73_m2}NormalThe [facility] Physician GroupComment on above: Performed By: #### CMP, HEPATIC, TRIG, DIFF CBC ####[place] [address] USAGlobulin (S) [Mass/Vol]2.0 g/dLNormal The [facility] Physician GroupComment on above:Performed By: #### CMP, HEPATIC, TRIG, DIFF CBC ####[place] [id number] USAGlucose [Mass/Vol]101 mg/nXKvhb29-269Bst [facility] Comment on above:Result Comment: Random Glucose Reference Range is dependent on time and content of last meal. Glucose of more than 200 mg/dL in a nonstressed, ambulatory subject supports the diagnosis of Diabetes Mellitus. ADA recommended reference rangePerformed By: #### CMP, HEPATIC, TRIG, DIFF CBC ####[place] [address] USAPotassium [Moles/Vol] 3.4 mmol/LLow3.5-5.1The [facility] Physician GroupComment on above:Performed By: #### CMP, HEPATIC, TRIG, DIFF CBC ####[place] [id number] USAProtein [Mass/Vol]4.4 g/dLLow6.4-8.9The [facility] Physician GroupComment on above:Performed By: #### CMP, HEPATIC, TRIG, DIFF CBC ####[place] [id number] USASodium [Moles/Vol]140 mmol/QDwwued509-771Jru [facility] Physician GroupComment on above: Performed By: #### CMP, HEPATIC, TRIG, DIFF CBC ####[place] [phone] USAUrea nitrogen [Mass/Vol]51 mg/dLHigh 7-25The [facility] Physician GroupComment on above:Performed By: #### CMP, HEPATIC, TRIG, DIFF CBC ####[address] [address] USADiff and CBCon 09-82-6968Giavpbzelqhf Ql (Bld)Moderate NormalThe [facility] Physician GroupComment on above:Performed By: #### CMP, HEPATIC, TRIG, DIFF CBC ####[place] [id number] USABand form neutrophils/100 WBC (Bld)6 %High0-5The [facility] Physician GroupComment on above:Performed By: #### CMP, HEPATIC, TRIG, DIFF CBC ####[place] [address] [place] Erythrocyte distribution width (RBC) [Ratio]16.6 %High11.9-15.3The [facility] Physician GroupComment on above:Performed By: #### CMP, HEPATIC, TRIG, DIFF CBC ####[place] [address] USAGiant Platelet Tally1 /100{WBC}NormalThe [facility] Physician GroupComment on above: Performed By: #### CMP, HEPATIC, TRIG, DIFF CBC ####[place] [address] USAHematocrit (Bld) [Volume fraction]30.4 %Low34.0-46.4The [facility] Physician GroupComment on above:Performed By: #### CMP, HEPATIC, TRIG, DIFF CBC ####[place] [address] USAHemoglobin (Bld) [Mass/Vol]10.1 g/dLLow11.8-15.4The [facility] Physician GroupComment on above:Performed By: #### CMP, HEPATIC, TRIG, DIFF CBC ####[place] [address] USAHypochromasiaMarkedHCA Florida Lawn[facility] Hospital Physician GroupComment on above: Performed By: #### CMP, HEPATIC, TRIG, DIFF CBC ####[place] [address] USALymphocytes/100 WBC (Bld)3 %Fum02-63 The [facility] Physician GroupComment on above:Performed By: #### CMP, HEPATIC, TRIG, DIFF CBC ####[place] [address] USAMacrocytosisSlightHCA Florida Lawnwood Hospital Physician GroupComment on above: Performed By: #### CMP, HEPATIC, TRIG, DIFF CBC ####[place] [address] USAMCH (RBC) [Entitic mass]27.7 pgNormal 24.7-34.3The [facility] Physician GroupComment on above:Performed By: #### CMP, HEPATIC, TRIG, DIFF CBC ####[address] [address] [facility] (RBC) [Entitic vol]83.3 pCHwckxe22-711Ail [facility] Physician GroupComment on above:Performed By: #### CMP, HEPATIC, TRIG, DIFF CBC ####[address] [address] USAMean Corpuscular HGB Conc33.3 g/cSYswtis44.0-35.0The [facility] Physician GroupComment on above:Performed By: #### CMP, HEPATIC, TRIG, DIFF CBC ####[address] [address] USAMetamyelocytes1 %High0-0The [facility] Physician GroupComment on above:Performed By: #### CMP, HEPATIC, TRIG, DIFF CBC ####[address] [address] USAMonocytes/100 WBC (Bld)10 %Normal2-11The [facility] Physician GroupComment on above:Performed By: #### CMP, HEPATIC, TRIG, DIFF CBC ####[address] [address] USAMyelocytes2 %High0-0The [facility] Physician GroupComment on above:Performed By: #### CMP, HEPATIC, TRIG, DIFF CBC ####[address] [address] USANucleated Red Blood Cell1 /100{WBC}High0-0The [facility] Comment on above:Performed By: #### CMP, HEPATIC, TRIG, DIFF CBC ####[address] [address] USAPlatelet Estimate NormalNormalNormalThe [facility] Physician GroupComment on above:Performed By: #### CMP, HEPATIC, TRIG, DIFF CBC ####[address] [address] USAPlatelet mean volume (Bld) [Entitic vol]8.5 fLNormal 6.3-10.7The [facility] Physician GroupComment on above:Performed By: #### CMP, HEPATIC, TRIG, DIFF CBC ####[place] [address] USAPlatelet MorphologyNormalNormHollywood Medical Center Physician GroupComment on above:Result Comment: PERFORMED BY:[address] [place], [place] [phone] MEDICAL JACKELYN VÁZQUEZ M.D.Performed By: #### CMP, HEPATIC, TRIG, DIFF CBC ####[place] [address] [place] Platelets (Bld) [#/Vol]230 10*3/vKVtzmif247-173Nxu [facility] Comment on above:Performed By: #### CMP, HEPATIC, TRIG, DIFF CBC ####[place] [address] USAPoikilocytosisSlight NormalSt. Joseph'S Hospital Physician [facility] Adult Care UnitComment on above:Performed By: #### CMP, HEPATIC, TRIG, DIFF CBC ####[place] [id number] USAPolychromasiaMarkedHCA Florida La[facility] Physician [facility] Comment on above:Performed By: #### CMP, HEPATIC, TRIG, DIFF CBC ####[place] [address] USARBC (Bld) [#/Vol]3.65 10*6/uLNormal3.60-5.00The [facility] Physician GroupComment on above:Performed By: #### CMP, HEPATIC, TRIG, DIFF CBC ####[place] [phone] USARouleauxSlightNoFrye Regional [facility] Physician [facility] Care UnitComment on above:Performed By: #### CMP, HEPATIC, TRIG, DIFF CBC ####[place] [address] [place] Segmented neutrophils/100 WBC (Bld)78 %Tyey39-93Ern [facility] Comment on above:Performed By: #### CMP, HEPATIC, TRIG, DIFF CBC ####[place] [address] USAWBC (Bld) [#/Vol]9.6 10*3/uLNormal3.8-11.6The [facility] Physician GroupComment on above:Performed By: #### CMP, HEPATIC, TRIG, DIFF CBC ####[place] [address] USAWhite Blood Count9.6 [CFU]/mLNormal3.8-11.6The [facility] Physician GroupComment on above:Performed By: #### CMP, HEPATIC, TRIG, DIFF CBC ####[place] [address] USAHepatic Panelon 08-96-6158Gcldijqul,Indirect0.3 mg/dLNormalThe [facility] Physician GroupComment on above:Performed By: #### CMP, HEPATIC, TRIG, DIFF CBC ####[address] Bilirubin.indirect [Mass/Vol]0.40 mg/dLHigh0.03-0.18The [facility] Physician GroupComment on above:Performed By: #### CMP, HEPATIC, TRIG, DIFF CBC ####[place] [address] USAISTAT Glucose Pocon 33-33-5908Nhyqlsc [Mass/Vol]100 mg/aABwvxpe25-341Dkt [facility] Physician GroupComment on above:Result Comment: PERFORMED BY:[address] [address] [address] [place], [place] [phone] MEDICAL DIRECTORCARLOS VÁZQUEZ M.D.Performed By: #### ISGLU ####Point of Care testing, Glucose [Mass/Vol]93 mg/nRYbjtqv05-999Daa [facility] Physician GroupComment on above:Result Comment: PERFORMED BY:[address] [address] [address] [place], [place] [phone] MEDICAL JACKELYN VÁZQUEZ M.D.Performed By: #### ISGLU ####Point of Care testing,Glucose [Mass/Vol]94 mg/rWNixquc64-264Rew [facility] Physician GroupComment on above:Result Comment: PERFORMED BY:[address] [place]ZW[place], [place] [phone] BUD VÁZQUEZ M.D.Performed By: #### ISGLU ####Point of Care testing,Triglycerideson 77-88-5403Kidydofibbzv [Mass/Vol]317 mg/uOErkn79-571Rxo [facility] Physician GroupComment on above: Result Comment: TRIG ATP III CLASSIFICATION TRIG less than 150 mg/dL Normal TRIG 150-199 mg/dL Borderline high TRIG 200-500 mg/dL High TRIG greater than 500 mg/dL Very high Standard traceable to the Center for Disease Conrtrol and Prevention (CDC) test method.PERFORMED BY:[address] [place], [place] [phone] MEDICAL JACKELYN VÁZQUEZ M.D.Performed By: #### CMP, HEPATIC, TRIG, DIFF CBC ####[address] [address] USAVancomycin,Randomon 96-47-6956Gylfkrtawz,Lstcji32.3High5.0-20.0The [facility] Physician GroupComment on above:Order Comment: Date of last dose?: 20241105 Time of last dose?: 2329 Result Comment: Last dose: -PERFORMED BY:[address] [place]INEZW[place], [place] [phone] BUD VÁZQUEZ M.D.Performed By: #### VANCR ####[address] [address] USAXR chest 1V portableon 42-15-5529PF chest 1V portableNormalThe [facility] Physician GroupArterial Blood Gason 49-16-1760PFW Base Excess-8.5 mmol/LLow-3.0-3.0The [facility] Physician GroupComment on above: Performed By: #### ABG ####Point of Care testing,ABG Frac Inspired O230%Normal The [facility] Physician GroupComment on above:Performed By: #### ABG ####Point of Care testing,ABG Oxygen Content6.6 mmol/LNormal6.6-9.7The [facility] Physician GroupComment on above:Performed By: #### ABG ####Point of Care testing,ABG Oxygen Mhglfmyybr45.5 %Wczepe96.0-100.0The [facility] Physician GroupComment on above:Performed By: #### ABG ####Point of Care testing,ABG AVL967.4 mm[Hg]Off scale low35.0-45.0The [facility] Physician GroupComment on above:Performed By: #### ABG ####Point of Care testing,ABG VHAE8EqfkypAinBroward Health Imperial Point Physician Group Comment on above:Performed By: #### ABG ####Point of Care testing,ABG PH7.42 Normal7.35-7.45The [facility] Physician GroupComment on above:Performed By: #### ABG ####Point of Care testing,ABG HB3970.7 mm[Hg]High80.0-100.0The [facility] Physician GroupComment on above:Performed By: #### ABG ####Point of Care testing,ABG TV450 mLNormalThe [facility] Physician GroupComment on above: Performed By: #### ABG ####Point of Care testing,CO2 [Moles/Vol]15.0 mmol/LLow 23.0-27.0The [facility] Physician GroupComment on above:Performed By: #### ABG ####Point of Care testing,HCO3 (Bld) [Moles/Vol]14.3 mmol/LLow23.0-29.0The [facility] Physician GroupComment on above:Performed By: #### ABG ####Point of Care testing,Respiratory CriticalNormBroward Health Imperial Point Physician GroupComment on above:Result Comment: Critical Value called on: 11/06/2024 at 18:12PERFORMED BY:[place] [address] [address] [place], [place] [phone] MEDICAL DIRECTORCARLOS VÁZQUEZ M.D.Performed By: #### ABG ####Point of Care testing,Set Respiratory Rbvx79IsnsrwWejAitkin HospitalComment on above:Performed By: #### ABG ####Point of Care testing,VBG Draw SiteArtlineRiverview Psychiatric Center GroupComment on above: Performed By: #### ABG ####Point of Care testing,ABG Base Excess-7.3 mmol/LLow -3.0-3.0The [facility] Physician GroupComment on above:Performed By: #### ABG ####Point of Care testing,ABG Frac Inspired O230 %NormalThe [facility] Physician GroupComment on above:Performed By: #### ABG ####Point of Care testing,ABG Oxygen Content6.5 mmol/LLow6.6-9.7The [facility] Physician GroupComment on above: Performed By: #### ABG ####Point of Care testing,ABG Oxygen Wvlzxsltxq45.3 % Zyynji09.0-100.0The [facility] Physician [facility] Care UnitComment on above:Performed By: #### ABG ####Point of Care testing,ABG DZV448.3 mm[Hg]Off scale low35.0-45.0The [facility] Physician GroupComment on above:Performed By: #### ABG ####Point of Care testing,ABG XJZW2IxpsuqKjhHCA [facility] Lawn[facility] Hospital Physician [facility] Care UnitComment on above: Performed By: #### ABG ####Point of Care testing,ABG PH7.22Msszry0.35-7.45[facility] Physician [facility] Care UnitComment on above:Performed By: #### ABG ####Point of Care testing,ABG DW0151.4 mm[Hg]High80.0-100.0The [facility] Comment on above:Performed By: #### ABG ####Point of Care testing,ABG TV450 mL NormalThe [facility] Physician GroupComment on above:Performed By: #### ABG ####Point of Care testing,CO2 [Moles/Vol]16.1 mmol/LLow23.0-27.0The [facility] Physician GroupComment on above:Performed By: #### ABG ####Point of Care testing,HCO3 (Bld) [Moles/Vol]15.4 mmol/LLow23.0-29.0The [facility] Physician GroupComment on above:Performed By: #### ABG ####Point of Care testing, Respiratory CriticalNoFrye Regional Medical Center Alexander Campus Physician GroupComment on above:Result Comment: Critical Value called on: 11/06/2024 at 12:25PERFORMED BY:[facility] [place], [place] [phone] MEDICAL DIRECTORCARLOS VÁZQUEZ M.D.Performed By: #### ABG ####Point of Care testing,Set Respiratory Kvxc62AacwesKbhFrye Regional Medical Center Alexander Campus Physician GroupComment on above:Performed By: #### ABG ####Point of Care testing,VBG Draw SiteArtline NormalThe [facility] Physician GroupComment on above:Performed By: #### ABG ####Point of Care testing,Ventilator ModeACNoFrye Regional [facility] Center [facility]ician Group Comment on above:Performed By: #### ABG ####Point of Care testing,ABG Base Excess-4.9 mmol/LLow-3.0-3.0The [facility] Physician GroupComment on above: Performed By: #### ABG ####Point of Care testing,ABG Frac Inspired O240 %Normal The [facility] Physician GroupComment on above:Performed By: #### ABG ####Point of Care testing,ABG Oxygen Content7.4 mmol/LNormal6.6-9.7The [facility] Physician GroupComment on above:Performed By: #### ABG ####Point of Care testing,ABG Oxygen Tdkxypartx41.6 %Rsevqt14.0-100.0The [facility] Physician GroupComment on above:Performed By: #### ABG ####Point of Care testing,ABG XVA693.8 mm[Hg]Off scale low35.0-45.0The [facility] Physician GroupComment on above:Performed By: #### ABG ####Point of Care testing,ABG JXAO6HwjdhxMttFrye Regional Medical Center [facility] Physician [facility] Comment on above:Performed By: #### ABG ####Point of Care testing,ABG PH7.44 Normal7.35-7.45The [facility] Physician GroupComment on above:Performed By: #### ABG ####Point of Care testing,ABG NG2081.0 mm[Hg]Off scale high80.0-100.0The [facility] Physician GroupComment on above:Performed By: #### ABG ####Point of Care testing,ABG TV450 mLNormalThe [facility] Physician GroupComment on above: Performed By: #### ABG ####Point of Care testing,CO2 [Moles/Vol]18.7 mmol/LLow 23.0-27.0The [facility] Physician GroupComment on above:Performed By: #### ABG ####Point of Care testing,HCO3 (Bld) [Moles/Vol]17.9 mmol/LLow23.0-29.0The [facility] Physician GroupComment on above:Performed By: #### ABG ####Point of Care testing,Respiratory CriticalNoFrye Regional Medical Center [facility] Campus Physician GroupComment on above:Result Comment: Critical Value called on: 11/06/2024 at 06:12PERFORMED BY:[facility] [place], [place] [phone] MEDICAL DIRECTORCARLOS VÁZQUEZ M.D.Performed By: #### ABG ####Point of Care testing,Set Respiratory Iosu46BduxqcThnFrye Regional Medical Center [facility] Campus Physician GroupComment on above:Performed By: #### ABG ####Point of Care testing,VBG Draw SiteArtlineHCA Florida [facility] Physician GroupComment on above: Performed By: #### ABG ####Point of Care testing,Ventilator ModeACNoFrye Regional [facility] Center [facility] Physician GroupComment on above:Performed By: #### ABG ####Point of Care testing,ABG Base Excess-5.4 mmol/LLow-3.0-3.0[facility] Physician [facility] Comment on above:Performed By: #### ABG ####Point of Care testing,ABG Oxygen Content6.9 mmol/LNormal6.6-9.7The [facility] Physician GroupComment on above: Performed By: #### ABG ####Point of Care testing,ABG Oxygen Bvaoipitro00.0 % Ongeth15.0-100.0The [facility] Physician GroupComment on above:Performed By: #### ABG ####Point of Care testing,ABG RTB403.1 mm[Hg]Off scale low35.0-45.0The [facility] Physician GroupComment on above:Performed By: #### ABG ####Point of Care testing,ABG PH7.21Zsivmp4.35-7.45The [facility] Physician GroupComment on above:Performed By: #### ABG ####Point of Care testing,ABG IG9134.3 mm[Hg]Off scale high80.0-100.0The [facility] Physician GroupComment on above:Performed By: #### ABG ####Point of Care testing,ABG TV400 mLNormalThe [facility] Physician GroupComment on above:Performed By: #### ABG ####Point of Care testing,CO2 [Moles/Vol]17.9 mmol/LLow23.0-27.0The [facility] Physician GroupComment on above: Performed By: #### ABG ####Point of Care testing,HCO3 (Bld) [Moles/Vol]17.2 mmol/LLow23.0-29.0The [facility] Physician GroupComment on above:Performed By: #### ABG ####Point of Care testing,Comprehensive Metabolic Panelon 11-06-2024 Albumin [Mass/Vol]2.6 g/dLLow3.5-5.7The [facility] Physician GroupComment on above:Performed By: #### CMP, DIFF CBC ####[facility] [address] [place] [address] USAAlbumin/Globulin [Mass ratio]1.2 {ratio}Normal The [facility] Physician GroupComment on above:Performed By: #### CMP, DIFF CBC ####[place] [address] USAALP [Catalytic activity/Vol]185 U/WLdqn52-966Dtd [facility] Physician GroupComment on above:Performed By: #### CMP, DIFF CBC ####[address] [address] USAALT [Catalytic activity/Vol]1419 U/LHigh7-52 The [facility] Physician GroupComment on above:Performed By: #### CMP, DIFF CBC ####[place] [id number] USAAnion gap [Moles/Vol]13.5 mmol/LNormal6.0-15.0The [facility] Physician GroupComment on above:Performed By: #### CMP, DIFF CBC ####[place] [address] USAAST [Catalytic activity/Vol]1912 U/WAlao81-29 The [facility] Physician GroupComment on above:Performed By: #### CMP, DIFF CBC ####[place] [id number] [place] Bilirubin [Mass/Vol]1.0 mg/dLNormal0.3-1.0The [facility] Physician GroupComment on above:Performed By: #### CMP, DIFF CBC ####[place] [address] USACalcium [Mass/Vol]7.9 mg/dLLow8.6-10.3The [facility] Physician GroupComment on above:Performed By: #### CMP, DIFF CBC ####[place] [id number] [place] Chloride [Moles/Vol]112 mmol/JYhzb65-828Prp [facility] Physician GroupComment on above:Performed By: #### CMP, DIFF CBC ####[address] [address] USACO2 [Moles/Vol]19.1 mmol/LLow21.0-31.0The [facility] Physician GroupComment on above:Performed By: #### CMP, DIFF CBC ####[address] [address] [facility] Creatinine [Mass/Vol]2.09 mg/dLSignificant change down0.60-1.20The [facility] Physician GroupComment on above:Performed By: #### CMP, DIFF CBC ####[place] [id number] USACreatinine Clr Calc Wvrditno45.61NoFrye Regional Medical Center [facility] Campus Physician GroupComment on above:Result Comment: PERFORMED BY:[address]ETS[place], [place] [phone] MEDICAL JACKELYN VÁZQUEZ M.D.Performed By: #### CMP, DIFF CBC ####[place] [id number] USAGFR/1.73 sq M.predicted MDRD (S/P/Bld) [Vol rate/Area]24.408 mL/min/{1.73_m2}NormalThe [facility] Physician GroupComment on above:Performed By: #### CMP, DIFF CBC ####[place] [id number] USAGlobulin (S) [Mass/Vol]2.1 g/dLNoFrye Regional Medical Center [facility] Physician [facility] UnitComment on above:Performed By: #### CMP, DIFF CBC ####[place] [id number] USAGlucose [Mass/Vol]107 mg/mQMbfe61-138Vwk [facility] Physician GroupComment on above:Result Comment: Random Glucose Reference Range is dependent on time and content of last meal. Glucose of more than 200 mg/dL in a nonstressed, ambulatory subject supports the diagnosis of Diabetes Mellitus. ADA recommended reference rangePerformed By: #### CMP, DIFF CBC ####[place] [id number] USAPotassium [Moles/Vol]3.6 mmol/LNormal3.5-5.1The [facility] Physician GroupComment on above:Performed By: #### CMP, DIFF CBC ####[place] [id number] USAProtein [Mass/Vol]4.7 g/dLLow 6.4-8.9The [facility] Physician GroupComment on above:Performed By: #### CMP, DIFF CBC ####[address] [address] USASodium [Moles/Vol]141 mmol/XWsfwsk699-625Swx [facility] Physician GroupComment on above:Performed By: #### CMP, DIFF CBC ####[address] [address] USAUrea nitrogen [Mass/Vol]43 mg/dLHigh 7-25The [facility] Physician GroupComment on above:Performed By: #### CMP, DIFF CBC ####[place] [id number] [facility] Creatinine, Urine (Random)on 19-34-7639Iucayuzfoy, Urine (Random)88.00 mg/dL NormalThe [facility] Physician GroupComment on above:Result Comment: No reference range establishedPERFORMED BY:[address] [place], [place] [phone] MEDICAL DIRECTORCARLOS VÁZQUEZ M.D.Performed By: #### UCREA ####[address] [address] USADiff and CBCon 69-29-4459Dulvhrqvofez Ql (Bld)Slight NormalThe [facility] Physician GroupComment on above:Performed By: #### CMP, DIFF CBC ####[place] [id number] [place] Band form neutrophils/100 WBC (Bld)8 %High0-5[facility] Comment on above:Performed By: #### CMP, DIFF CBC ####[address] [address] USAErythrocyte distribution width (RBC) [Ratio]16.8 %High11.9-15.3The [facility] Physician GroupComment on above: Performed By: #### CMP, DIFF CBC ####[address] [address] USAHematocrit (Bld) [Volume fraction]33.6 %Low34.0-46.4 The [facility] Physician GroupComment on above:Performed By: #### CMP, DIFF CBC ####[address] [address] [place] Hemoglobin (Bld) [Mass/Vol]11.2 g/dLLow11.8-15.4[facility] Comment on above:Performed By: #### CMP, DIFF CBC ####[address] [address] USAHypochromasiaSlightNoFrye Regional [facility] Physician GroupComment on above:Performed By: #### CMP, DIFF CBC ####[address] [address] [place] Lymphocytes/100 WBC (Bld)5 %Vwm84-11Bol [facility] Physician GroupComment on above:Performed By: #### CMP, DIFF CBC ####[address] [address] USAMCH (RBC) [Entitic mass]27.7 msJuktfk43.7-34.3 The [facility] Physician GroupComment on above:Performed By: #### CMP, DIFF CBC ####[address] [address] USAMCV (RBC) [Entitic vol]83.0 uPNddiqf84-738Dtt [facility] Physician GroupComment on above:Performed By: #### CMP, DIFF CBC ####[place] [id number] USAMean Corpuscular HGB Conc33.3 g/dLNormal 32.0-35.0The [facility] Physician GroupComment on above:Performed By: #### CMP, DIFF CBC ####[address] [address] USAMonocytes/100 WBC (Bld)4 %Normal2-11The [facility] Physician GroupComment on above:Performed By: #### CMP, DIFF CBC ####[address] [address] USAPlatelet EstimateNormalNormalNormToledo Hospitale [facility] Physician GroupComment on above:Performed By: #### CMP, DIFF CBC ####[address] [address] [place] Platelet mean volume (Bld) [Entitic vol]8.6 fLNormal6.3-10.7The [facility] Physician GroupComment on above:Result Comment: PERFORMED BY:[address] [place]ARTINEZWILLACOOCHEE, [place] [phone] MEDICAL JACKELYN VÁZQUEZ M.D.Performed By: #### CMP, DIFF CBC ####[place] [id number] USAPlatelet Morphology NormalNormalNormalThe [facility] Physician GroupComment on above:Result Comment: PERFORMED BY:[address] [place], [place] [phone] MEDICAL JACKELYN VÁZQUEZ M.D.Performed By: #### CMP, DIFF CBC ####[place] [address] USAPlatelets (Bld) [#/Vol]277 10*3/oGFuyxbp946-460Sor [facility] Physician GroupComment on above:Performed By: #### CMP, DIFF CBC ####[address] [address] USAPolychromasiaSlight NormalThe [facility] Physician [facility] UnitComment on above:Performed By: #### CMP, DIFF CBC ####[place] [id number] [place] Promyelocytes1 %High0-0The [facility] Physician GroupComment on above:Performed By: #### CMP, DIFF CBC ####[place] [id number] USARBC (Bld) [#/Vol]4.04 10*6/uLNormal3.60-5.00The [facility] Physician GroupComment on above:Performed By: #### CMP, DIFF CBC ####[place] [id number] [place] Segmented neutrophils/100 WBC (Bld)83 %Zynf74-34Dkg [facility] Comment on above:Performed By: #### CMP, DIFF CBC ####[address] [address] USAWBC (Bld) [#/Vol]9.0 10*3/uLNormal 3.8-11.6The [facility] Physician GroupComment on above:Performed By: #### CMP, DIFF CBC ####[address] [address] USAWhite Blood Count9.0 [CFU]/mLNormal3.8-11.6[facility] Comment on above:Performed By: #### CMP, DIFF CBC ####[address] [address] USADipstick and Microscopicon 11-06-2024 Appearance (U)Slightly cloudyCritically abnormalClearThe [facility] Physician GroupComment on above:Order Comment: Name Collection Type:: Pandya Catheter Performed By: #### ADDONUAPLUS, CUU ####[address] USABacteria,Urine2+ [HPF]NormalNone SeenThe [facility] Physician GroupComment on above:Order Comment: Name Collection Type:: Pandya CatheterPerformed By: #### ADDONUAPLUS, CUU ####[address] USABilirubin,UrineNegativeNormalNegative The [facility] Physician GroupComment on above:Order Comment: Name Collection Type:: Pandya CatheterPerformed By: #### ADDONUAPLUS, CUU ####[address] USABudding Yeast,Urine4+ [HPF] NormalNone SeenThe [facility] Physician GroupComment on above:Order Comment: Name Collection Type:: Pandya CatheterResult Comment: PERFORMED BY:[place] [address] [address] [place], [place] [phone] MEDICAL JACKELYN VÁZQUEZ M.D.Performed By: #### ADDONUAPLUS, CUU ####[address], [place] USAColor (U)Dark-Yellow Critically abnormalYellowThe [facility] Physician GroupComment on above:Order Comment: Name Collection Type:: Pandya CatheterPerformed By: #### ADDONUAPLUS, CUU ####[address] [id number] [place] Glucose Ql (U)NormalNormalNormalThValor Health Physician GroupComment on above: Order Comment: Name Collection Type:: Pandya CatheterPerformed By: #### ADDONUAPLUS, CUU ####[address] [address] USAHyaline Casts,UrineNoneNormal0-8The [facility] Physician GroupComment on above:Order Comment: Name Collection Type:: Panyda CatheterPerformed By: #### ADDONUAPLUS, CUU ####[address] [address] USAKetones Ql (U)TraceNormalNegativeSt. Joseph'S Hospital Physician GroupComment on above:Order Comment: Name Collection Type:: Pandya CatheterPerformed By: #### ADDONUAPLUS, CUU ####[address] [address] USALeukocyte esterase Test strip Ql (U)3+NormalNegativeSt. Joseph'S Hospital Physician GroupComment on above:Order Comment: Name Collection Type:: Pandya CatheterPerformed By: #### ADDONUAPLUS, CUU ####[address] USAMucus,UrineRareNormalSt. Joseph'S Hospital Physician GroupComment on above:Order Comment: Name Collection Type:: Pandya CatheterPerformed By: #### ADDONUAPLUS, CUU ####[address] USANitrite,UrineNegativeNormalNegativeSt. Joseph'S Hospital Physician GroupComment on above:Order Comment: Name Collection Type:: Pandya CatheterPerformed By: #### ADDONUAPLUS, CUU ####[address] USAOccult Blood,Urine3+NormalNegativeThe [facility] Physician GroupComment on above:Order Comment: Name Collection Type:: Pandya CatheterResult Comment: PERFORMED BY:[place] [address] [address] [place], [place] [phone] MEDICAL JACKELYN VÁZQUEZ M.D.Performed By: #### ADDONUAPLUS, CUU ####[address] Hinojosapending sale to novant healthkathleen, PJ[address] USApH (U)5.5 [pH]Normal5.0-9.0The [facility] Physician GroupComment on above:Order Comment: Name Collection Type:: Pandya CatheterPerformed By: #### ADDONUAPLUS, CUU ####[address] Hinojosapending sale to novant healthkathleenHEBR[place], OHRU[address] USAProtein (U) [Mass/Vol]30 mg/dLNormal NegativeThe [facility] Physician GroupComment on above:Order Comment: Name Collection Type:: Pandya CatheterPerformed By: #### ADDONUAPLUS, CUU ####[address] Hinojosapending sale to novant healthkathleen, VP[address] [place] RBC,UrineInnumerableNormal0-4The [facility] Physician GroupComment on above:Order Comment: Name Collection Type:: Pandya CatheterPerformed By: #### ADDONUAPLUS, CUU ####[address] Hinojosapending sale to novant healthkathleen, RM[address] [place] Specificy [place],Urine1.484Iqgcuw3.001-1.030The [facility]ician Group Comment on above:Order Comment: Name Collection Type:: Pandya CatheterPerformed By: #### ADDONUAPLUS, CUU ####[place] [address] Micaelapending sale to novant healthkathleen, XX[address] USASquamous Epithelial Cell,Mwdmz1-6Vzlkml5-5Mkz [facility] Physician GroupComment on above:Order Comment: Name Collection Type:: Pandya CatheterPerformed By: #### ADDONUAPLUS, CUU ####[address] Micaelapending sale to novant healthkathleen, KK[address] USAUrobilinogen,UrineNormalNormalNormal [facility] Physician GroupComment on above:Order Comment: Name Collection Type:: Pandya CatheterPerformed By: #### JOSE LUIS, CUU ####[facility] [facility], [place] USAWBC CLUMP, UrineManyNormalNone SeenThe [facility] Physician GroupComment on above:Order Comment: Name Collection Type:: Pandya CatheterPerformed By: #### JOSE LUIS, CUU ####[place] [address] [facility], [id number] USAWBC,Lctxg43-86Mwtjhq8-7Bhn [facility] Physician GroupComment on above:Order Comment: Name Collection Type:: Pandya CatheterPerformed By: #### JOSE LUIS, CUU ####[address] USADrug Screen,Urineon 11-06-2024 Amphetamine Screen,UrineNegativeNormalNegativeThe [facility] Comment on above:Performed By: #### URDS ####[address] [address] USABarbiturate Screen,UrineNegativeNormalNegative The [facility] Physician GroupComment on above:Performed By: #### URDS ####[address] [address] [place] Benzodiazepines Screen,UrinePositiveNormalNegativeThe [facility] Comment on above:Performed By: #### URDS ####[address] [address] USACannabinoid Screen,UrineNegativeNormalNegative The [facility] Physician GroupComment on above:Result Comment: These are unconfirmed results and should not be used for legal purposes. Drug Cut-Off Concentration: AMPH 1000 ng/mL VIRGILIO 200 ng/mL OSCAR 200 ng/mL COCM 300 ng/mL OP 300 ng/mL PCP 25 ng/mL THC 20 ng/mLPERFORMED BY:[address]CH[address] [place]OOKSH[place], [place] [phone] MEDICAL JACKELYN VÁZQUEZ M.D.Performed By: #### URDS ####[facility] Zfd[address] [place] [address] USACocaine Screen,UrineNegative NormalNegativeThe [facility] Physician GroupComment on above:Performed By: #### URDS ####[facility] Fpb[address] [place] [address] [place] Opiate Screen,UrineNegativeNormalNegativeThe [facility] Physician GroupComment on above:Performed By: #### URDS ####[facility] Cym[address] [place] [address] USAPhencyclidine Screen,UrineNegativeNormalNegativeThe [facility] Physician GroupComment on above:Performed By: #### URDS ####[facility] [place] [address] USAECH echo transthoracicon 13-34-4002DUT echo transthoracicNormalThe [facility] Physician [facility] UnitISTAT Glucose Pocon 84-91-2414Gpiapqq [Mass/Vol]91 mg/sRFcnrnt96-909Bkf [facility] Physician [facility] UnitComment on above:Result Comment: PERFORMED BY:[place] [address] [address] [place], [place] [phone] MEDICAL JACKELYN VÁZQUEZ M.D.Performed By: #### ISGLU ####Point of Care testing,Glucose [Mass/Vol]96 mg/yIYmufab77-672Nit [facility] Comment on above:Result Comment: PERFORMED BY:[place] [address] [address] [place], [place] [phone] MEDICAL JACKELYN VÁZQUEZ M.D.Performed By: #### ISGLU ####Point of Care testing, Glucose [Mass/Vol]115 mg/zTNxot39-539Dil [facility] Physician GroupComment on above:Result Comment: PERFORMED BY:[place] [address] [address] [place], [place] [phone] MEDICAL JACKELYN VÁZQUEZ M.D.Performed By: #### ISGLU ####Point of Care testing,Sodium, Urine (Random)on 62-41-5663Yuwzfo (U) [Moles/Vol]25 mmol/LNormalThe [facility] Comment on above:Result Comment: No reference range establishedPERFORMED BY:[address] [place], [place] [phone] MEDICAL DIRECTORCARLOS VÁZQUEZ M.D.Performed By: #### SANGEETA ####[address] [address] USAUrine Cultureon 33-03-9338Mrumcexw identified Cx Nom (U)ORGANISM: Clau albicans (O:CANALB) Christopher Count >100,000 PERFORMED BY: [address] [place] [address] PATHOLOGIST HEAD CORRECTION OFFICER CARLOS VÁZQUEZ M.D.NormalThe [facility] Physician [facility] UnitComment on above: Performed By: #### ADDONUAPLUS, CUU ####[address] USABacteria identified Cx Nom (U)ORGANISM: Clau albicans (O:CANALB) Christopher Count >100,000 PERFORMED BY: [address] [address] PATHOLOGIST HEAD CORRECTION OFFICER CARLOS VÁZQUEZ M.D.NormalSt. Joseph'S Hospital Physician GroupComment on above: Performed By: #### CUU ####[address] [address] USAXR chest 1V portableon 48-37-4731WG chest 1V portableNormalThe [facility] Physician GroupArterial Blood Gason 88-39-5868LVE Base Excess-6.1 mmol/LLow-3.0-3.0The [facility] Physician GroupComment on above: Performed By: #### ABG ####Point of Care testing,ABG Frac Inspired O250 %Normal The [facility] Physician GroupComment on above:Performed By: #### ABG ####Point of Care testing,ABG Oxygen Content6.7 mmol/LNormal6.6-9.7The [facility] Physician GroupComment on above:Performed By: #### ABG ####Point of Care testing,ABG Oxygen Tawhhsflwk06.3 %Kumsur70.0-100.0The [facility] Physician GroupComment on above:Performed By: #### ABG ####Point of Care testing,ABG VZB224.4 mm[Hg]Off scale low35.0-45.0The [facility] Physician [facility] UnitComment on above:Performed By: #### ABG ####Point of Care testing,ABG OWAS7YzqvlyFkxBroward Health [facility] Physician [facility] Comment on above:Performed By: #### ABG ####Point of Care testing,ABG PH7.43 Normal7.35-7.45The [facility] Physician GroupComment on above:Performed By: #### ABG ####Point of Care testing,ABG LB9628.2 mm[Hg]High80.0-100.0The [facility] Physician [facility] UnitComment on above:Performed By: #### ABG ####Point of Care testing,ABG TV450 mLNormalThe [facility] Physician GroupComment on above: Performed By: #### ABG ####Point of Care testing,CO2 [Moles/Vol]17.8 mmol/LLow 23.0-27.0The [facility] Physician GroupComment on above:Performed By: #### ABG ####Point of Care testing,HCO3 (Bld) [Moles/Vol]17.0 mmol/LLow23.0-29.0The [facility] Physician GroupComment on above:Performed By: #### ABG ####Point of Care testing,Respiratory CriticalNoFrye Regional Medical Center [facility] Physician GroupComment on above:Result Comment: Critical Value called on: 11/06/2024 at 00:03PERFORMED BY:[place] [address] [address] [place], [place] [phone] MEDICAL JACKELYN VÁZQUEZ M.D.Performed By: #### ABG ####Point of Care testing,Result Comment: Critical Value called on: 11/05/2024 at 17:13PERFORMED BY:[place] [address] [place] [place], [place] [phone] MEDICAL DIRECTORCARLOS VÁZQUEZ M.D.Set Respiratory Fgxb83CkocvcZmiFrye Regional Medical Center [facility] Physician GroupComment on above: Performed By: #### ABG ####Point of Care testing,VBG Draw SiteArtlineHCA Florida Lawnwood Hospital Physician GroupComment on above:Performed By: #### ABG ####Point of Care testing,Ventilator ModeACHCA Florida Lawnwood Hospital Physician GroupComment on above:Performed By: #### ABG ####Point of Care testing,Blood Cultureon [id number] identified Cx Nom (Bld)NO GROWTH 5 DAYS PERFORMED BY: [facility] [address] [place] [address] PATHOLOGIST HEAD CORRECTION OFFICER CARLOS VÁZQUEZ M.D.NormalSt. Joseph'S Hospital Physician GroupComment on above: Performed By: #### CUBLD ####[address] [address] USABacteria identified Cx Nom (Bld)NormalThe [facility] Physician [facility] Care UnitComment on above:Performed By: #### CUBLD ####[address] [address] USAComprehensive Metabolic Panel on 48-98-8188Kqthsfz [Mass/Vol]2.5 g/dLLow3.5-5.7The [facility]ician Group Comment on above:Performed By: #### DIFF CBC, CMP, PT, LACTIC ####[address] [address] USAAlbumin/Globulin [Mass ratio]1.3 {ratio}NormalSt. Joseph'S Hospital Physician [facility] Care UnitComment on above: Performed By: #### DIFF CBC, CMP, PT, LACTIC ####[address] [address] USAPerformed By: #### CMP, DIFF CBC ####[address] [address] USAALP [Catalytic activity/Vol]190 U/PWfhx56-899[facility] [place] Physician [facility] Care UnitComment on above:Performed By: #### DIFF CBC, CMP, PT, LACTIC ####[address] [address] USAALT [Catalytic activity/Vol] 1538 U/LHigh7-52The [facility] Physician GroupComment on above:Performed By: #### DIFF CBC, CMP, PT, LACTIC ####[address] [place] [address] USAAnion gap [Moles/Vol]11.4 mmol/LNormal6.0-15.0The [facility] Physician GroupComment on above:Performed By: #### DIFF CBC, CMP, PT, LACTIC ####[address] [place] [address] [place] AST [Catalytic activity/Vol]2548 U/PUiym01-61Hcl [facility] Physician [facility] Comment on above:Performed By: #### DIFF CBC, CMP, PT, LACTIC ####[address] [place] [address] USABilirubin [Mass/Vol] 1.9 mg/dLHigh0.3-1.0The [facility] Physician GroupComment on above:Result Comment: Samples from patients who have taken Naproxen have shown spurious elevation in Total Bilirubin levels. A metabolite of Naproxen, O- desmethylnaproxen, has been shown to interfere with the Aminah-Mark method for measuring Total Bilirubin.Performed By: #### DIFF CBC, CMP, PT, LACTIC ####[address] [place] [address] USACalcium [Mass/Vol]6.9 mg/dLLow8.6-10.3The [facility] Physician GroupComment on above: Performed By: #### DIFF CBC, CMP, PT, LACTIC ####[address] [place] [address] USAChloride [Moles/Vol]117 mmol/LHigh 98-107The [facility] Physician GroupComment on above:Performed By: #### DIFF CBC, CMP, PT, LACTIC ####[address] [place] [address] USACO2 [Moles/Vol]19.2 mmol/LLow21.0-31.0The [facility] Physician [facility] Comment on above:Performed By: #### DIFF CBC, CMP, PT, LACTIC ####[address] [place] [address] USACreatinine [Mass/Vol] 1.42 mg/dLHigh0.60-1.20The [facility] Physician GroupComment on above:Performed By: #### DIFF CBC, CMP, PT, LACTIC ####[address] [place] [address] USACreatinine Clr Calc Mwuxlmun88.74NormBroward Health Imperial Point Physician GroupComment on above:Result Comment: PERFORMED BY:[address]ETSHEILAHUI, [place] [phone] MEDICAL DIRECTORCARLOS VÁZQUEZ M.D.Performed By: #### DIFF CBC, CMP, PT, LACTIC ####[address] [address] [place] GFR/1.73 sq M.predicted MDRD (S/P/Bld) [Vol rate/Area]38.812 mL/min/{1.73_m2} NormalThe [facility] Physician GroupComment on above:Performed By: #### DIFF CBC, CMP, PT, LACTIC ####[address] [address] USAGlobulin (S) [Mass/Vol]1.9 g/dLNoFrye Regional Medical [facility] Comment on above:Performed By: #### DIFF CBC, CMP, PT, LACTIC ####[address] [address] USAGlucose [Mass/Vol]114 mg/sYVwfa78-033Uem [facility] Physician GroupComment on above:Result Comment: Random Glucose Reference Range is dependent on time and content of last meal. Glucose of more than 200 mg/dL in a nonstressed, ambulatory subject supports the diagnosis of Diabetes Mellitus. ADA recommended reference rangePerformed By: #### DIFF CBC, CMP, PT, LACTIC ####[address] [address] USAPotassium [Moles/Vol]3.6 mmol/LNormal3.5-5.1The [facility] Physician GroupComment on above:Performed By: #### DIFF CBC, CMP, PT, LACTIC ####[address] [address] [place] Protein [Mass/Vol]4.4 g/dLLow6.4-8.9The [facility] Physician GroupComment on above:Performed By: #### DIFF CBC, CMP, PT, LACTIC ####[address] [address] USASodium [Moles/Vol]144 mmol/L Hefyfe638-823Ubz [facility] Physician GroupComment on above:Performed By: #### DIFF CBC, CMP, PT, LACTIC ####[address] [address] USAUrea nitrogen [Mass/Vol]31 mg/dLHigh7-25The [facility] Physician GroupComment on above:Performed By: #### DIFF CBC, CMP, PT, LACTIC ####[address] [address] [place] Albumin [Mass/Vol]2.9 g/dLLow3.5-5.7The [facility] Physician GroupComment on above:Performed By: #### CMP, DIFF CBC ####[address] [address] USAALP [Catalytic activity/Vol]184 U/TOoyd22-485 The [facility] Physician GroupComment on above:Performed By: #### CMP, DIFF CBC ####[address] [address] USAALT [Catalytic activity/Vol]109 U/LHigh7-52The [facility] Physician GroupComment on above:Performed By: #### CMP, DIFF CBC ####[address] [address] USAAnion gap [Moles/Vol]15.1 mmol/LHigh6.0-15.0 The [facility] Physician GroupComment on above:Performed By: #### CMP, DIFF CBC ####[address] [address] USAAST [Catalytic activity/Vol]168 U/GMzze03-28Obq [facility] Physician GroupComment on above:Performed By: #### CMP, DIFF CBC ####[address] [address] USABilirubin [Mass/Vol]1.8 mg/dLHigh0.3-1.0The [facility] Physician GroupComment on above:Result Comment: Samples from patients who have taken Naproxen have shown spurious elevation in Total Bilirubin levels. A metabolite of Naproxen, O-desmethylnaproxen, has been shown to interfere with the Jendrteersaik-Grof method for measuring Total Bilirubin.Performed By: #### CMP, DIFF CBC ####[address] [address] USACalcium [Mass/Vol]7.7 mg/dLLow8.6-10.3The [facility]ician Group Comment on above:Performed By: #### CMP, DIFF CBC ####[address] [address] USAChloride [Moles/Vol]114 mmol/LHigh 98-107The [facility] Physician GroupComment on above:Performed By: #### CMP, DIFF CBC ####[address] [address] [place] CO2 [Moles/Vol]17.3 mmol/LLow21.0-31.0The [facility] Physician GroupComment on above:Performed By: #### CMP, DIFF CBC ####[address] [address] USACreatinine [Mass/Vol]1.28 mg/dLHigh0.60-1.20 The [facility] Physician GroupComment on above:Performed By: #### CMP, DIFF CBC ####[address] [address] [place] Creatinine Clr Calc Kxgbsvex17.54NormalThe [facility] Physician GroupComment on above:Result Comment: PERFORMED BY:[address] [place], [place] [phone] MEDICAL JACKELYN VÁZQUEZ M.D.Performed By: #### CMP, DIFF CBC ####[address] [address] USAGFR/1.73 sq M.predicted MDRD (S/P/Bld) [Vol rate/Area]43.960 mL/min/{1.73_m2}NormalThe [facility] Physician GroupComment on above:Performed By: #### CMP, DIFF CBC ####[place] [address] USAGlobulin (S) [Mass/Vol]2.3 g/dLNormalThe [facility] Physician GroupComment on above:Performed By: #### CMP, DIFF CBC ####[place] [address] USAGlucose [Mass/Vol]144 mg/bCSpni18-043Kgb [facility] Physician GroupComment on above: Result Comment: Random Glucose Reference Range is dependent on time and content of last meal. Glucose of more than 200 mg/dL in a nonstressed, ambulatory subject supports the diagnosis of Diabetes Mellitus. ADA recommended reference rangePerformed By: #### CMP, DIFF CBC ####[place] [address] USAPotassium [Moles/Vol]4.4 mmol/LNormal3.5-5.1 The [facility] Physician GroupComment on above:Performed By: #### CMP, DIFF CBC ####[id number] USAProtein [Mass/Vol]5.2 g/dLLow6.4-8.9The [facility] Physician GroupComment on above: Performed By: #### CMP, DIFF CBC ####[id number] USASodium [Moles/Vol]142 mmol/AOppcse718-255Wgm [facility] Physician GroupComment on above:Performed By: #### CMP, DIFF CBC ####[id number] USAUrea nitrogen [Mass/Vol]28 mg/dLHigh7-25The [facility] Physician GroupComment on above:Performed By: #### CMP, DIFF CBC ####[id number] USADiff and CBCon 20-89-8304Zwpufignofmi Ql (Bld) SlightNoFrye Regional Medical Center [facility] Physician GroupComment on above:Performed By: #### DIFF CBC, CMP, PT, LACTIC ####[place] [address] USAPerformed By: #### CMP, DIFF CBC ####[place] [address] USABand form neutrophils/100 WBC (Bld)5 %Normal0-5The [facility] Physician GroupComment on above:Performed By: #### DIFF CBC, CMP, PT, LACTIC ####[place] [address] USAPerformed By: #### CMP, DIFF CBC ####[place] [address] [place] Dohle BodiesSlightNoFrye Regional Medical Center [facility] Physician GroupComment on above:Performed By: #### DIFF CBC, CMP, PT, LACTIC ####[place] [address] USAErythrocyte distribution width (RBC) [Ratio]16.8 % High11.9-15.3The [facility] Physician GroupComment on above:Performed By: #### DIFF CBC, CMP, PT, LACTIC ####[place] [address] USAHematocrit (Bld) [Volume fraction]30.2 %Low34.0-46.4 The [facility] Physician GroupComment on above:Performed By: #### DIFF CBC, CMP, PT, LACTIC ####[place] [address] USAHemoglobin (Bld) [Mass/Vol]10.1 g/dLLow11.8-15.4The [facility] Comment on above:Performed By: #### DIFF CBC, CMP, PT, LACTIC ####[place] [address] USAHypochromasiaSlight NormalThe [facility] Physician GroupComment on above:Performed By: #### DIFF CBC, CMP, PT, LACTIC ####[id number] USAPerformed By: #### CMP, DIFF CBC ####[id number] USALymphocytes/100 WBC (Bld)4 %Pdq08-98 The [facility] Physician GroupComment on above:Performed By: #### DIFF CBC, CMP, PT, LACTIC ####[place] [address] USAPerformed By: #### CMP, DIFF CBC ####[id number] [facility] (RBC) [Entitic mass]27.8 nwRzhkgi81.7-34.3 The [facility] Physician GroupComment on above:Performed By: #### DIFF CBC, CMP, PT, LACTIC ####[id number] [facility] (RBC) [Entitic vol]83.2 oDFvielm15-607Rci [facility]ician Group Comment on above:Performed By: #### DIFF CBC, CMP, PT, LACTIC ####[place] [address] USAMean Corpuscular HGB Conc33.4 g/jAQxvtjr11.0-35.0The [facility] Physician GroupComment on above: Performed By: #### DIFF CBC, CMP, PT, LACTIC ####[place] [address] USAMetamyelocytes1 %High0-0The [facility] Physician GroupComment on above:Performed By: #### DIFF CBC, CMP, PT, LACTIC ####[id number] [place] Monocytes/100 WBC (Bld)9 %Normal2-11The [facility] Physician GroupComment on above:Performed By: #### DIFF CBC, CMP, PT, LACTIC ####[id number] USAMyelocytes1 %High0-0The [facility] Physician GroupComment on above:Performed By: #### DIFF CBC, CMP, PT, LACTIC ####[address] [address] [place] Performed By: #### CMP, DIFF CBC ####[address] [address] USANucleated Red Blood Cell1 /100{WBC}High0-0The [facility] Physician GroupComment on above:Performed By: #### DIFF CBC, CMP, PT, LACTIC ####[address] [address] [place] Performed By: #### CMP, DIFF CBC ####[address] [address] USAPlatelet EstimateNormalNormalNoFrye Regional Medical Center [facility] Physician GroupComment on above:Performed By: #### DIFF CBC, CMP, PT, LACTIC ####[id number] [facility] Performed By: #### CMP, DIFF CBC ####[id number] USAPlatelet mean volume (Bld) [Entitic vol]8.6 fLNormal 6.3-10.7The [facility] Physician GroupComment on above:Performed By: #### DIFF CBC, CMP, PT, LACTIC ####[address] [address] USAPlatelet MorphologyNormalNormalHCA Florida Lawnwood Hospital Physician GroupComment on above:Result Comment: PERFORMED BY:[address] [place], [place] [phone] MEDICAL DIRECTORCARLOS VÁZQUEZ M.D.Performed By: #### DIFF CBC, CMP, PT, LACTIC ####[id number] [place] Performed By: #### CMP, DIFF CBC ####[phone] USAPlatelets (Bld) [#/Vol]208 10*3/lRDacnbi273-008Hjr [facility] Physician GroupComment on above:Performed By: #### DIFF CBC, CMP, PT, LACTIC ####[place] [address] [place] RBC (Bld) [#/Vol]3.63 10*6/uLNormal3.60-5.00The [facility] Physician GroupComment on above:Performed By: #### DIFF CBC, CMP, PT, LACTIC ####[place] [address] USASegmented neutrophils/100 WBC (Bld)80 %Ceaf08-83Xff [facility] Physician GroupComment on above:Performed By: #### DIFF CBC, CMP, PT, LACTIC ####[place] [address] USATarget CellsSlightHCA Florida Lawnwood Hospital Physician GroupComment on above:Performed By: #### DIFF CBC, CMP, PT, LACTIC ####[place] [address] USAToxic Vacuolation SlightHCA Florida Lawnwood Hospital Physician GroupComment on above:Performed By: #### DIFF CBC, CMP, PT, LACTIC ####[address] [address] USAPerformed By: #### CMP, DIFF CBC ####[place] [address] USAWBC (Bld) [#/Vol]9.1 10*3/uLNormal3.8-11.6The [facility] Physician GroupComment on above:Performed By: #### DIFF CBC, CMP, PT, LACTIC ####[place] [address] USAWhite Blood Count9.1 [CFU]/mLNormal3.8-11.6The [facility] Physician GroupComment on above:Performed By: #### DIFF CBC, CMP, PT, LACTIC ####[place] [address] [place] Dohle BodiesModerateHCA Florida Lawnwood Hospital Physician GroupComment on above: Performed By: #### CMP, DIFF CBC ####[address] [place] [address] USAErythrocyte distribution width (RBC) [Ratio]17.3 % High11.9-15.3The [facility] Physician GroupComment on above:Performed By: #### CMP, DIFF CBC ####[place] [address] USAHematocrit (Bld) [Volume fraction]33.6 %Low34.0-46.4The [facility] Physician GroupComment on above:Performed By: #### CMP, DIFF CBC ####[place] [address] USAHemoglobin (Bld) [Mass/Vol]10.8 g/dLLow11.8-15.4The [facility] Physician GroupComment on above: Performed By: #### CMP, DIFF CBC ####[place] [address] USAMCH (RBC) [Entitic mass]27.4 gvOjswki93.7-34.3The [facility] Physician GroupComment on above:Performed By: #### CMP, DIFF CBC ####[place] [address] USAMCV (RBC) [Entitic vol]85.8 hTMhkxbh42-232Ddd [facility] Physician GroupComment on above:Performed By: #### CMP, DIFF CBC ####[place] [address] USAMean Corpuscular HGB Conc32.0 g/dLNormal 32.0-35.0The [facility] Physician GroupComment on above:Performed By: #### CMP, DIFF CBC ####[place] [address] USAMonocytes/100 WBC (Bld)6 %Normal2-11The [facility] Physician GroupComment on above:Performed By: #### CMP, DIFF CBC ####[id number] USAOvalocytesSlightNormalThe [facility] Physician GroupComment on above:Performed By: #### CMP, DIFF CBC ####[address] [address] USAPlatelet mean volume (Bld) [Entitic vol]8.7 fLNormal6.3-10.7The [facility] Physician GroupComment on above: Result Comment: PERFORMED BY:[address] [place], [place] [phone] MEDICAL DIRECTORCARLOS VÁZQUEZ M.D.Performed By: #### CMP, DIFF CBC ####[address] [address] USAPlatelets (Bld) [#/Vol]272 10*3/uLNormal 150-450The [facility] Physician GroupComment on above:Performed By: #### CMP, DIFF CBC ####[address] [address] USAPoikilocytosisCommunity Health Physician GroupComment on above: Performed By: #### CMP, DIFF CBC ####[address] [address] USAPolychromasiaSAngel Medical Center Physician GroupComment on above:Performed By: #### CMP, DIFF CBC ####[address] [address] USARBC (Bld) [#/Vol]3.92 10*6/uL Normal3.60-5.00The [facility] Physician GroupComment on above:Performed By: #### CMP, DIFF CBC ####[address] [address] USASchistocytesSAngel Medical Center Physician GroupComment on above: Performed By: #### CMP, DIFF CBC ####[address] [address] USASegmented neutrophils/100 WBC (Bld)85 %Bsix43-47Vjv [facility] Physician GroupComment on above:Performed By: #### CMP, DIFF CBC ####[address] [address] USAToxic GranulationSAngel Medical Center Physician GroupComment on above:Performed By: #### CMP, DIFF CBC ####[address] [address] USAWBC (Bld) [#/Vol]11.0 10*3/uLNormal3.8-11.6The [facility] Physician GroupComment on above:Performed By: #### CMP, DIFF CBC ####[address] [address] USAWhite Blood Count11.0 [CFU]/mLNormal3.8-11.6The [facility] Physician GroupComment on above:Performed By: #### CMP, DIFF CBC ####[id number] USAECG 12 lead ECGon 17-95-7359BWF 12 lead ECG NormalThe [facility] Physician [facility] Care UnitGlucose Poct Glucometerson 86-98-1083Muukgoi3 Glu2: Cleaned MeterNormChildren's Hospital Colorado South CampusComment on above:Result Comment: PERFORMED BY:[address] [address] [place], [place] [phone] MEDICAL DIRECTORCARLOS VÁZQUEZ M.D.Performed By: #### GLULS ####Point of Care testing,Glucose [Mass/Vol]81 mg/dLNoFrye Regional [facility] Physician [facility] Care UnitComment on above:Result Comment: Random Glucose Reference Range is dependent on time and content of last meal. Glucose of more than 200 mg/dL in a nonstressed, ambulatory subject supports the diagnosis of Diabetes Mellitus.Performed By: #### GLULS ####Point of Care testing,Lactic Acid on 83-82-4309Hyqppye [Moles/Vol]3.2 mmol/LOff scale high0.5-1.9The [facility] Physician [facility] Care UnitComment on above:Result Comment: Critical Result : Called to and read back by: GIO TORRE at: 11/05/2024 13:00 by:MLG Lactic Acid reference range has been updated to 0.5 ? 1.9 mmol/L and the critical range of 2.0 or greater.PERFORMED BY:[address] [place], [place] [phone] MEDICAL JACKELYN VÁZQUEZ M.D.Performed By: #### DIFF CBC, CMP, PT, LACTIC ####[address] [place] [address] USALactic Acid Reflexon 44-89-0138Mocgwm Acid Reflex2.0 mmol/LOff scale high0.5-1.9The [facility] Physician GroupComment on above:Result Comment: Critical Result : Called to and read back by: ROXY RAYMOND at: 11/05/2024 16:42:19by:LFM Lactic Acid reference range has been updated to 0.5 ? 1.9 mmol/L and the critical range of 2.0 or greater.PERFORMED BY:[address] [place], [place] [phone] MEDICAL JACKELYN VÁZQUEZ M.D.Performed By: #### LACTIC RFX ####[address] [address]GEQLicvhfgudjp Time INR on 11-17-6320DFE Coag (PPP) [Relative time]1.4 {INR}NormalThe [facility] Physician GroupComment on above:Result Comment: INR Therapeutic [...] with mechanical heart valves: 3 - 4.5PERFORMED BY:[address] [place] [place], [place] [phone] MEDICAL JACKELYN VÁZQUEZ M.D.Performed By: #### DIFF CBC, CMP, PT, LACTIC ####[address] [address] [place] PT Coag (PPP) [Time]15.4 sHigh9.0-12.9The [facility] Physician GroupComment on above:Result Comment: A hematocrit value greater than 55% may lead to inaccurate results in coagulation testing. Patients having hematocrit values >55% require a special collection tube for coagulation studies. Please contact the laboratory at [phone] for redraw instructions.Performed By: #### DIFF CBC, CMP, PT, LACTIC ####[address] [address] [facility] XR abdomen 1Von 39-64-5683VO abdomen 1VNormalThe [facility] Physician [facility] Comprehensive Metabolic Panelon 93-11-2691Ntingsc [Mass/Vol]2.7 g/dLLow3.5-5.7 The [facility] Physician [facility] Care UnitComment on above:Performed By: #### CMP, DIFF CBC ####[address] [address] [facility] Albumin/Globulin [Mass ratio]1.2 {ratio}NormalThe [facility] Comment on above:Performed By: #### CMP, DIFF CBC ####[address] [address] USAALP [Catalytic activity/Vol]143 U/L Uidr23-779Nnh [facility] Physician [facility] Care UnitComment on above:Performed By: #### CMP, DIFF CBC ####[address] [address] USAALT [Catalytic activity/Vol]12 U/LNormal7-52The [facility] Physician [facility] Comment on above:Performed By: #### CMP, DIFF CBC ####[address] [address] USAAnion gap [Moles/Vol]10.5 mmol/LNormal 6.0-15.0The [facility] Physician GroupComment on above:Performed By: #### CMP, DIFF CBC ####[address] [address] USAAST [Catalytic activity/Vol]28 U/VPgateo51-01Jwf [facility] Physician [facility] Comment on above:Performed By: #### CMP, DIFF CBC ####[address] [address] USABilirubin [Mass/Vol]0.6 mg/dLNormal 0.3-1.0The [facility] Physician GroupComment on above:Performed By: #### CMP, DIFF CBC ####[address] [address] USACalcium [Mass/Vol]6.7 mg/dLLow8.6-10.3The [facility] Physician GroupComment on above:Performed By: #### CMP, DIFF CBC ####[address] [address] USAChloride [Moles/Vol]113 mmol/BEsco37-904Dgi [facility] Physician GroupComment on above:Performed By: #### CMP, DIFF CBC ####[address] [address] USACO2 [Moles/Vol]18.7 mmol/LLow21.0-31.0The [facility] Physician GroupComment on above: Performed By: #### CMP, DIFF CBC ####[address] [address] USACreatinine [Mass/Vol]1.15 mg/dLSignificant change down0.60-1.20The [facility] Physician GroupComment on above:Performed By: #### CMP, DIFF CBC ####[address] [address] USACreatinine Clr Calc Tiezxday17.63NoFrye Regional [facility] Comment on above:Result Comment: PERFORMED BY:[address] [place], [place] [phone] MEDICAL JACKELYN VÁZQUEZ M.D.Performed By: #### CMP, DIFF CBC ####[address] [address] USAGFR/1.73 sq M.predicted MDRD (S/P/Bld) [Vol rate/Area]49.989 mL/min/{1.73_m2}NormalThe [facility] Physician GroupComment on above:Performed By: #### CMP, DIFF CBC ####[address] [address] [place] Globulin (S) [Mass/Vol]2.3 g/dLNoFrye Regional [facility] Physician [facility] UnitComment on above:Performed By: #### CMP, DIFF CBC ####[place] [address] USAGlucose [Mass/Vol]135 mg/iXDaoh28-661Awn [facility] Physician GroupComment on above:Result Comment: Random Glucose Reference Range is dependent on time and content of last meal. Glucose of more than 200 mg/dL in a nonstressed, ambulatory subject supports the diagnosis of Diabetes Mellitus. ADA recommended reference rangePerformed By: #### CMP, DIFF CBC ####[place] [address] [place] Potassium [Moles/Vol]3.2 mmol/LLow3.5-5.1The [facility] Physician GroupComment on above:Performed By: #### CMP, DIFF CBC ####[place] [address] USAProtein [Mass/Vol]5.0 g/dLLow6.4-8.9The [facility] Physician GroupComment on above:Performed By: #### CMP, DIFF CBC ####[place] [address] USASodium [Moles/Vol]139 mmol/UFinpkz876-736Esf [facility] Physician GroupComment on above: Performed By: #### CMP, DIFF CBC ####[place] [address] USAUrea nitrogen [Mass/Vol]27 mg/dLSignificant change down7-25The [facility] Physician GroupComment on above:Performed By: #### CMP, DIFF CBC ####[place] [id number] USADiff and CBCon 67-76-9169Sicztjngubhh Ql (Bld)SlightNormBroward Health Imperial Point Physician GroupComment on above:Performed By: #### CMP, DIFF CBC ####[place] [phone] USABand form neutrophils/100 WBC (Bld)25 %High0-5The [facility] Physician GroupComment on above:Performed By: #### CMP, DIFF CBC ####[place] [address] USACrenated RBCSlightNormToledo Hospitale Firelands Physician GroupComment on above:Performed By: #### CMP, DIFF CBC ####[address] [address] USADohle BodiesSlight NormalThe [facility] Physician GroupComment on above:Performed By: #### CMP, DIFF CBC ####[address] [address] [place] Erythrocyte distribution width (RBC) [Ratio]17.1 %High11.9-15.3The [facility] Physician GroupComment on above:Performed By: #### CMP, DIFF CBC ####[address] [address] USAHematocrit (Bld) [Volume fraction]32.6 %Low34.0-46.4The [facility] Physician GroupComment on above:Performed By: #### CMP, DIFF CBC ####[place] [address] USAHemoglobin (Bld) [Mass/Vol]10.8 g/dLLow 11.8-15.4The [facility] Physician GroupComment on above:Performed By: #### CMP, DIFF CBC ####[place] [phone] USAHypochromasiaSAngel Medical Center Physician GroupComment on above: Performed By: #### CMP, DIFF CBC ####[place] [id number] USALymphocytes/100 WBC (Bld)2 %Cjv10-49Szf [facility] Physician GroupComment on above:Performed By: #### CMP, DIFF CBC ####[address] [address] USAMCH (RBC) [Entitic mass]27.5 suDxdsrh39.7-34.3The [facility] Physician GroupComment on above: Performed By: #### CMP, DIFF CBC ####[place] [phone] USAMCV (RBC) [Entitic vol]83.3 uKKenrgx50-278Cqt [facility] Physician GroupComment on above:Performed By: #### CMP, DIFF CBC ####[address] [address] USAMean Corpuscular HGB Conc33.0 g/lSTpdutc25.0-35.0The [facility] Physician GroupComment on above:Performed By: #### CMP, DIFF CBC ####[address] [address] USAMetamyelocytes1 %High0-0The [facility] Physician GroupComment on above:Performed By: #### CMP, DIFF CBC ####[address] [address] USAMonocytes/100 WBC (Bld)11 %Normal2-11The [facility] Physician GroupComment on above:Performed By: #### CMP, DIFF CBC ####[address] [address] USAOvalocytesSlightNoFrye Regional Medical Center [facility] Campus Physician GroupComment on above: Performed By: #### CMP, DIFF CBC ####[address] [address] USAPlatelet EstimateNormalNormalNormBroward Health Imperial Point Physician GroupComment on above:Performed By: #### CMP, DIFF CBC ####[address] [address] USAPlatelet mean volume (Bld) [Entitic vol]8.5 fLNormal6.3-10.7The [facility] Physician GroupComment on above:Performed By: #### CMP, DIFF CBC ####[address] [address] USAPlatelet MorphologyNormalNormalNormBroward Health Imperial Point Physician GroupComment on above:Result Comment: PERFORMED BY:[address] [place], [place] [phone] MEDICAL JACKELYN VÁZQUEZ M.D.Performed By: #### CMP, DIFF CBC ####[address] [address] [place] Platelets (Bld) [#/Vol]297 10*3/yYGxnrws195-378Zun [facility] Comment on above:Performed By: #### CMP, DIFF CBC ####[address] [address] USAPoikilocytosisSAngel Medical Center Physician GroupComment on above:Performed By: #### CMP, DIFF CBC ####[address] [address] USA PolychromasiaSAngel Medical Center Physician GroupComment on above:Performed By: #### CMP, DIFF CBC ####[address] [address] USAPromyelocytes1 %High0-0The [facility] Physician [facility] Comment on above:Performed By: #### CMP, DIFF CBC ####[address] [address] USARBC (Bld) [#/Vol]3.91 10*6/uLNormal 3.60-5.00The [facility] Physician GroupComment on above:Performed By: #### CMP, DIFF CBC ####[address] [address] USASegmented neutrophils/100 WBC (Bld)60 %Lyioab55-47Hew [facility] Physician GroupComment on above:Performed By: #### CMP, DIFF CBC ####[address] [address] USAToxic VacuolationSlightNormal The [facility] Physician GroupComment on above:Performed By: #### CMP, DIFF CBC ####[address] [address] USAWBC (Bld) [#/Vol]13.2 10*3/uLHigh3.8-11.6The [facility] Physician GroupComment on above:Performed By: #### CMP, DIFF CBC ####[address] [address] USAWhite Blood Count13.2 [CFU]/mLHigh3.8-11.6The [facility] Physician GroupComment on above:Performed By: #### CMP, DIFF CBC ####[address] [address] USAGlucose Poct Glucometerson 53-28-8871Cfirgxs4Qgq3: Cleaned MeterNoFrye Regional [facility] Center [facility] Campus Physician GroupComment on above:Result Comment: PERFORMED BY:[place] [address] [address] [place], [place] [phone] MEDICAL JACKELYN VÁZQUEZ M.D.Performed By: #### GLULS ####Point of Care testing, Glucose [Mass/Vol]108 mg/dLNoFrye Regional Medical Center [facility] Campus Physician GroupComment on above: Result Comment: Random Glucose Reference Range is dependent on time and content of last meal. Glucose of more than 200 mg/dL in a nonstressed, ambulatory subject supports the diagnosis of Diabetes Mellitus.Performed By: #### GLULS ####Point of Care testing,Vancomycin,Randomon 22-45-1581Uzogvmurrd,Wnlfqg56.3 Normal5.0-20.0The [facility] Physician GroupComment on above:Order Comment: Date of last dose?: [id number] Time of last dose?: 1829Result Comment: Last dose: - PERFORMED BY:[place] [address] [address] [place], [place] [phone] MEDICAL JACKELYN VÁZQUEZ M.D.Performed By: #### VANCR ####[address] [address] USAAerobic Cultureon 68-80-6234Oddunlm CultureNoFrye Regional [facility] Physician GroupComment on above:Performed By: #### GS, AERC ####[address] [address] USAComprehensive Metabolic Panelon 39-60-3906Mhjfbyk [Mass/Vol]2.7 g/dLLow3.5-5.7The [facility]ician Group Comment on above:Performed By: #### PHOS, CMP, DIFF CBC, MG, CALLIE ####[place] [address] USAAlbumin/Globulin [Mass ratio]1.2 {ratio}NormalThe [facility] Physician GroupComment on above: Performed By: #### PHOS, CMP, DIFF CBC, MG, CALLIE ####[place] [address] USAALP [Catalytic activity/Vol]166 U/L Noyo03-514Eri [facility] Physician GroupComment on above:Performed By: #### PHOS, CMP, DIFF CBC, MG, CALLIE ####[place] [address] USAALT [Catalytic activity/Vol]13 U/LNormal7-52The [facility] Physician GroupComment on above:Performed By: #### PHOS, CMP, DIFF CBC, MG, CALLIE ####[place] [address] USAAnion gap [Moles/Vol]12.4 mmol/LNormal6.0-15.0The [facility] Physician GroupComment on above:Performed By: #### PHOS, CMP, DIFF CBC, MG, CALLIE ####[place] [address] USAAST [Catalytic activity/Vol]28 U/ZXdfalo45-96Cxr [facility] Physician GroupComment on above:Performed By: #### PHOS, CMP, DIFF CBC, MG, CALLIE ####[place] [address] USABilirubin [Mass/Vol]0.5 mg/dLNormal0.3-1.0The [facility] Physician GroupComment on above:Performed By: #### PHOS, CMP, DIFF CBC, MG, CALLIE ####[place] [address] USACalcium [Mass/Vol]7.0 mg/dLSignificant change down8.6-10.3The [facility] Physician GroupComment on above:Performed By: #### PHOS, CMP, DIFF CBC, MG, CALLIE ####[place] [address] [place] Chloride [Moles/Vol]111 mmol/RQaki37-957Uow [facility] Physician GroupComment on above:Performed By: #### PHOS, CMP, DIFF CBC, MG, CALLIE ####[place] [address] USACO2 [Moles/Vol]20.2 mmol/LLow 21.0-31.0The [facility] Physician GroupComment on above:Performed By: #### PHOS, CMP, DIFF CBC, MG, CALLIE ####[place] [address] USACreatinine [Mass/Vol]2.08 mg/dLSignificant change down 0.60-1.20The [facility] Physician GroupComment on above:Performed By: #### PHOS, CMP, DIFF CBC, MG, CALLIE ####[place] [address] USACreatinine Clr Calc Advrvqaf69.39NoFrye Regional [facility] Physician GroupComment on above:Performed By: #### PHOS, CMP, DIFF CBC, MG, CALLIE ####[address] GFR/1.73 sq M.predicted MDRD (S/P/Bld) [Vol rate/Area]24.549 mL/min/{1.73_m2} NormalThe [facility] Physician GroupComment on above:Performed By: #### PHOS, CMP, DIFF CBC, MG, CALLIE ####[address]Globulin (S) [Mass/Vol]2.2 g/dLNoFrye Regional Medical [facility] Physician GroupComment on above:Performed By: #### PHOS, CMP, DIFF CBC, MG, CALLIE ####[address] Glucose [Mass/Vol]143 mg/aUTxar70-177Nml [facility] Physician GroupComment on above:Result Comment: Random Glucose Reference Range is dependent on time and content of last meal. Glucose of more than 200 mg/dL in a nonstressed, ambulatory subject supports the diagnosis of Diabetes Mellitus. ADA recommended reference rangePerformed By: #### PHOS, CMP, DIFF CBC, MG, CALLIE ####[place] [phone] USAPotassium [Moles/Vol] 3.6 mmol/LSignificant change down3.5-5.1The [facility] Physician GroupComment on above:Performed By: #### PHOS, CMP, DIFF CBC, MG, CALLIE ####[place] [address] USAProtein [Mass/Vol]4.9 g/dLLow 6.4-8.9The [facility] Physician GroupComment on above:Performed By: #### PHOS, CMP, DIFF CBC, MG, CALLIE ####[place] [id number] USASodium [Moles/Vol]140 mmol/LSignificant change zdnx560-285 The [facility] Physician GroupComment on above:Performed By: #### PHOS, CMP, DIFF CBC, MG, CALLIE ####[place] [address] USAUrea nitrogen [Mass/Vol]63 mg/dLHigh7-25The [facility] Comment on above:Performed By: #### PHOS, CMP, DIFF CBC, MG, CALLIE ####[place] [address] USACortisolon 11-03-2024 Wfwavthz34.6 ug/dLHCA Florida [facility]wn[facility] Physician [facility] Care UnitComment on above:Result Comment: Reference range: AM 6 - 24 ug/dl PM <10 ug/dl [facility] Laboratory news content specialist and method: CIARAN UNICEL DXI, POLYCLONAL ANTIBODY CORTISOL ASSAY.PERFORMED BY:[address] [phone] MEDICAL JACKELYN VÁZQUEZ M.D.Performed By: #### PHOS, CMP, DIFF CBC, MG, CALILE ####[place] [phone] USADiff and CBCon 78-12-7287Vqbmzsjtfmwm Ql (Bld)Slight NormalThe [facility] Physician GroupComment on above:Performed By: #### PHOS, CMP, DIFF CBC, MG, CALLIE ####[address] StreetBand form neutrophils/100 WBC (Bld)28 %High0-5The [facility] Physician GroupComment on above:Performed By: #### PHOS, CMP, DIFF CBC, MG, CALLIE ####[place] [address] USACrenated RBCSAngel Medical Center Physician GroupComment on above: Performed By: #### PHOS, CMP, DIFF CBC, MG, CALLIE ####[place] [address] USADohle BodiesSAngel Medical Center Physician GroupComment on above:Performed By: #### PHOS, CMP, DIFF CBC, MG, CALLIE ####[address] Erythrocyte distribution width (RBC) [Ratio]17.0 %High11.9-15.3The [facility] Physician GroupComment on above:Performed By: #### PHOS, CMP, DIFF CBC, MG, CALLIE ####[address] Hematocrit (Bld) [Volume fraction]34.2 %Jrswuh36.0-46.4The [facility] Physician GroupComment on above:Performed By: #### PHOS, CMP, DIFF CBC, MG, CALLIE ####[address] Hemoglobin (Bld) [Mass/Vol]11.1 g/dLLow11.8-15.4The [facility] Comment on above:Performed By: #### PHOS, CMP, DIFF CBC, MG, CALLIE ####[place] [address] USALymphocytes/100 WBC (Bld)5 %Vee21-24Rsl [facility] Physician GroupComment on above:Performed By: #### PHOS, CMP, DIFF CBC, MG, CALLIE ####[place] [address] USAMCH (RBC) [Entitic mass]27.6 ctEvdvni33.7-34.3The [facility] Physician [facility] UnitComment on above:Performed By: #### PHOS, CMP, DIFF CBC, MG, CALLIE ####[place] [address] USAMCV (RBC) [Entitic vol]84.8 vTRskfby65-774Xwy [facility] Comment on above:Performed By: #### PHOS, CMP, DIFF CBC, MG, CALLIE ####[place] [address] USAMean Corpuscular HGB Conc32.6 g/bXVelsxf56.0-35.0The [facility] Physician GroupComment on above: Performed By: #### PHOS, CMP, DIFF CBC, MG, CALLIE ####[place] [address] USAMetamyelocytes4 %High0-0The [facility] Physician GroupComment on above:Performed By: #### PHOS, CMP, DIFF CBC, MG, CALLIE ####[place] [address] [place] Monocytes/100 WBC (Bld)5 %Normal2-11The [facility] Physician [facility] UnitComment on above:Performed By: #### PHOS, CMP, DIFF CBC, MG, CALLIE ####[place] [address] USAPlatelet EstimateNormalNormal NormalThe [facility] Physician [facility] UnitComment on above:Performed By: #### PHOS, CMP, DIFF CBC, MG, CALLIE ####[place] [address] USAPlatelet mean volume (Bld) [Entitic vol]8.3 fLNormal 6.3-10.7The [facility] Physician [facility] Care UnitComment on above:Result Comment: PERFORMED BY:[address] [place], [place] [phone] MEDICAL JACKELYN VÁZQUEZ M.D.Performed By: #### PHOS, CMP, DIFF CBC, MG, CALLIE ####[place] [address] USAPlatelet MorphologyNormalNormalNormBroward Health Imperial Point Physician GroupComment on above:Result Comment: PERFORMED BY:[address]ETGaloPITTSVILLE, [place] [phone] MEDICAL DIRECTORCARLOS VÁZQUEZ M.D.Performed By: #### PHOS, CMP, DIFF CBC, MG, CALLIE ####[place] [address] [place] Platelets (Bld) [#/Vol]312 10*3/yKGimzfp367-411Wsb [facility]ician Group Comment on above:Performed By: #### PHOS, CMP, DIFF CBC, MG, CALLIE ####[place] [address] USAPoikilocytosisSlight NormalSt. Joseph'S Hospital Physician GroupComment on above:Performed By: #### PHOS, CMP, DIFF CBC, MG, CALLIE ####[place] [address] USARBC (Bld) [#/Vol]4.03 10*6/uLNormal3.60-5.00The [facility] Physician GroupComment on above:Performed By: #### PHOS, CMP, DIFF CBC, MG, CALLIE ####[place] [address] [place] Segmented neutrophils/100 WBC (Bld)58 %Sjxxnv32-29Wra [facility] Physician [facility] Comment on above:Performed By: #### PHOS, CMP, DIFF CBC, MG, CALLIE ####[place] [address] USAToxic Vacuolation SlightNormalThe [facility] Physician GroupComment on above:Performed By: #### PHOS, CMP, DIFF CBC, MG, CALLIE ####[place] [address] USAWBC (Bld) [#/Vol]12.1 10*3/uLHigh3.8-11.6The [facility] Physician GroupComment on above:Performed By: #### PHOS, CMP, DIFF CBC, MG, CALLIE ####[address] [address] USAWhite Blood Count12.1 [CFU]/mLHigh3.8-11.6The [facility] Comment on above:Performed By: #### PHOS, CMP, DIFF CBC, MG, CALLIE ####[address] [address] USAGram Stainon 99-29-1470Ifxmwrjkcvr observation Gram stain Nom (Unsp spec)Gram Stain Result 2+ White Blood Cells Rare Epithelial Cells Rare Gram Positive Cocci PERFORMED BY: [facility] [address] [place] [address] PATHOLOGIST HEAD CORRECTION OFFICER CARLOS VÁZQUEZ M.D.NormalThe [facility] Physician GroupComment on above: Performed By: #### GS, AERC ####[address] [address] USAMagnesiumon 30-46-8823Eqnctcygy [Mass/Vol]1.9 mg/dL Normal1.9-2.7The [facility] Physician GroupComment on above:Result Comment: PERFORMED BY:[address] [place], [place] [phone] MEDICAL DIRECTORCARLOS VÁZQUEZ M.D.Performed By: #### PHOS, CMP, DIFF CBC, MG, CALLIE ####[address] [address] USAPhosphoruson 56-31-8231Bciogkxno [Mass/Vol]3.8 mg/dL Normal2.5-4.5The [facility] Physician GroupComment on above:Performed By: #### PHOS, CMP, DIFF CBC, MG, CALLIE ####[address] [address] USAVancomycin,Randomon 24-31-9643Ikrdfxneeu,Random8.9 Normal5.0-20.0The [facility] Physician GroupComment on above:Order Comment: Date of last dose?: 20241102 Time of last dose?: 1600Result Comment: Last dose: - PERFORMED BY:[address] [place], [place] [phone] MEDICAL JACKELYN VÁZQUEZ M.D.Performed By: #### VANCR ####[address] [address] USAXR chest 1V portableon 54-18-9162FT chest 1V [facility] Physician GroupAlanine aminotransferase [Enzymatic activity/volume] in Serum or PlasmaOrdered By: Regina Garcia on 71-70-0514ZWT [Catalytic activity/Vol]17 U/LNormal7-52S[facility] Memorial HospitalComment on above:Performed By: #### PT, DIFF CBC, PTT, TSH3, CMP, CK, HS TROP, CBC, LIPASE ####[address] [address] USAAlbumin [Mass/volume] in Serum or Plasma by Bromocresol green (BCG) dye binding methoOrdered By: Regina Garcia on 99-39-6014Dqmxoog BCG dye [Mass/Vol]3.5 g/dL3.5-5.7FWooster Community HospitalAlkaline phosphatase [Enzymatic activity/volume] in Serum or PlasmaOrdered By: Regina Garcia on 95-76-8041URZ [Catalytic activity/Vol] 243 U/TArsh22-984AfnoreftgShelby Memorial HospitalComment on above:Performed By: #### PT, DIFF CBC, PTT, TSH3, CMP, CK, HS TROP, CBC, LIPASE ####[address] [address] USAAmmonia [Moles/volume] in PlasmaOrdered By: Regina Garcia on 37-09-3204Fuuvhqp (P) [Moles/Vol]28 umol/OPywfvr50-19XnmkpjibkShelby Memorial HospitalComment on above:Result Comment: PERFORMED BY:[address] [address] [place] [place], [place] [phone] MEDICAL JACKELYN VÁZQUEZ M.D.Performed By: #### LACTIC, ETOH, AMM ####[place] [address] [place] [address] USAAmphetamine Screen Ql (U)Ordered By: Regina Garcia on 97-72-2084Fchextpsitep Ql (U)NegativeNegativeShelby Memorial HospitalAnisocytosis [Presence] in Blood by Light microscopyOrdered By: Regina Garcia on 75-39-5497Rhdwtrhqvtjh Ql (Bld)SlightNormalShelby Memorial HospitalComment on above:Performed By: #### PT, DIFF CBC, PTT, TSH3, CMP, CK, HS TROP, CBC, LIPASE ####[facility] [address] [place] [id number] USAAppearance of UrineOrdered By: Regina Garcia on 30-11-4741Kdwcqkefuu (U)CloudyCritically abnormalCleOhio State University Wexner Medical CenterComment on above:Order Comment: Name Collection Type:: Pandya Catheter Performed By: #### BELKISUAPLUS, URDS ####[facility] [place] [id number] USAArterial Blood Gason 12-14-0397MFG Base Excess -8.5 mmol/LLow-3.0-3.0The [facility] Physician GroupComment on above:Performed By: #### ABG ####Point of Care testing,ABG Frac Inspired O2100%NormalThe [facility] Physician GroupComment on above:Performed By: #### ABG ####Point of Care testing,ABG Oxygen Content8.0 mmol/LNormal6.6-9.7The [facility] GroupComment on above:Performed By: #### ABG ####Point of Care testing,ABG Oxygen Jisstntwtz08.9 %Yvsryt82.0-100.0The [facility] Physician GroupComment on above:Performed By: #### ABG ####Point of Care testing,ABG UGU298.6 mm[Hg]Low 35.0-45.0The [facility] Physician GroupComment on above:Performed By: #### ABG ####Point of Care testing,ABG PH7.32Low7.35-7.45The [facility] Comment on above:Performed By: #### ABG ####Point of Care testing,ABG RB9736.9 mm[Hg]Off scale high80.0-100.0The [place] Physician GroupComment on above: Performed By: #### ABG ####Point of Care testing,CO2 [Moles/Vol]17.8 mmol/LLow 23.0-27.0The [facility] Physician GroupComment on above:Performed By: #### ABG ####Point of Care testing,HCO3 (Bld) [Moles/Vol]16.7 mmol/LLow23.0-29.0The [facility] Physician GroupComment on above:Performed By: #### ABG ####Point of Care testing,Respiratory [facility] Physician GroupComment on above:Result Comment: Critical Value called on: 11/02/2024 at 22:41PERFORMED BY:[place] [address] [address] [place], [place] [phone] MEDICAL DIRECTORCARLOS VÁZQUEZ M.D.Performed By: #### ABG ####Point of Care testing,VBG Draw SiteLeft RadialHCA Florida Lawnwood Hospital Physician GroupComment on above:Performed By: #### ABG ####Point of Care testing,Aspartate aminotransferase [Enzymatic activity/volume] in Serum or PlasmaOrdered By: Regina Garcia on 93-81-0409RRS [Catalytic activity/Vol]41 U/FPlvp46-03OqmgtwinqShelby Memorial HospitalComment on above:Performed By: #### PT, DIFF CBC, PTT, TSH3, CMP, CK, HS TROP, CBC, LIPASE ####[address] [address] USABacteria [Presence] in Urine by AutomatedOrdered By: Regina Garcia on 75-79-5751Yiiocjwr Auto Ql (U)None seen [HPF]None SeenShelby Memorial HospitalBand form neutrophils/100 leukocytes in Blood by Manual countOrdered By: Regian Garcia on 59-02-5990Rmyy form neutrophils/100 WBC (Bld)24 %[address] Comment on above:Performed By: #### PT, DIFF CBC, PTT, TSH3, CMP, CK, HS TROP, CBC, LIPASE ####[address] [place] [address] USABarbiturates [Presence] in Urine by Screen methodOrdered By: Regina Garcia on 82-11-2633Eeqybnjijthi Screen Ql (U)NegativeNegSelect Medical Cleveland Clinic Rehabilitation Hospital, BeachwoodBasophils Auto (Bld) [#/Vol]Ordered By: Regina Garcia on 08-22-2383Pizcnyirn (Bld) [#/Vol]N/[facility] Basophils/100 WBC Auto (Bld)Ordered By: Regina Garcia on 11-02-2024 Basophils/100 WBC (Bld)N/[facility] HospitalBenzodiazepines Screen Ql (U)Ordered By: Regina Garcia on 16-09-6153Xnxjwmwjaynsefv Ql (U) NegativeNegSelect Medical Cleveland Clinic Rehabilitation Hospital, BeachwoodBenzoylecgonine [Presence] in Urine by Screen methodOrdered By: Regina Garcia on 08-00-1499Inmeebihivlmjrz Screen Ql (U)NegativeNegSelect Medical Cleveland Clinic Rehabilitation Hospital, BeachwoodBilirubin Test strip Ql (U)Ordered By: Regina Garcia on 12-02-6334Pgazsukod Ql (U)Negative NegativeShelby Memorial HospitalBilirubin.total [Mass/volume] in Serum or PlasmaOrdered By: Regina Garcia on 24-34-9449Swrvyooxo [Mass/Vol]0.7 mg/dL Normal0.3-1.0S[facility] Memorial HospitalComment on above:Performed By: #### PT, DIFF CBC, PTT, TSH3, CMP, CK, HS TROP, CBC, LIPASE ####[place] [place] [address] USABlood Cultureon 73-87-2271Udnmdyxq identified Cx Nom (Bld)JAYA Mccord notified AB 1508 NO GROWTH 5 DAYS PERFORMED BY: [facility] [address] [place] [address] PATHOLOGIST HEAD CORRECTION OFFICER CARLOS VÁZQUEZ M.D.[facility] Physician GroupComment on above: Performed By: #### CUBLD ####[place] [place] [address] USABacteria identified Cx Nom (Bld)JAYA Mccord notified AB 1508 NO GROWTH 5 DAYS PERFORMED BY: [facility] [address] [place] [id number] PATHOLOGIST HEAD CORRECTION OFFICER CARLOS VÁZQUEZ M.D.[facility] Physician GroupComment on above: Performed By: #### CUBLD ####[place] [address] [place] [id number] USABlood carbon dioxide, total measurement by calculation (moles/volume)Ordered By: Regina Garcia on 68-90-5137LU4 Calc (Bld) [Moles/Vol]20 mmol/NHxo18-61FedmqarixShelby Memorial HospitalBlood hemoglobin measurement by calculation (mass/volume)Ordered By: Regina Garcia on 16-27-7610Msibsbdual (Bld) [Mass/Vol]15.3 g/tEXljgsu04.0-17.0S[facility] Memorial HospitalComment on above:Performed By: #### ERBMP ####[place] [id number] USABlood urea nitrogen (BUN) measurement in whole blood (mass/volume)Ordered By: Regina Garcia on 13-35-5293Jixs nitrogen [Mass/Vol]72 mg/dLHigh8-26S[facility] Memorial HospitalComment on above:Performed By: #### ERBMP ####[place] [id number] USACT abdomen pelvis wo conon 11-02-2024 CT abdomen pelvis wo conNormalSt. Joseph'S Hospital Physician GroupCT head/brain wo con on 37-55-3559BW head/brain wo [facility] Physician [facility] Care UnitCalcium [Mass/volume] in Serum or PlasmaOrdered By: Regina Garcia on 06-37-7496Yuegcec [Mass/Vol]9.1 mg/dLNormal8.6-10.3FWooster Community HospitalComment on above:Performed By: #### PT, DIFF CBC, PTT, TSH3, CMP, CK, HS TROP, CBC, LIPASE ####[place] [address] [place] [phone] [place] Cannabinoids [Presence] in Urine by Screen methodOrdered By: Regina Garcia on 89-74-9317Vuwzezcmjipv Screen Ql (U)NegativeNegativeShelby Memorial HospitalComment on above:These are unconfirmed results and should not be used for legal purposes. Drug Cut-Off Concentration: AMPH 1000 ng/mL VIRGILIO 200 ng/mL OSCAR 200 ng/mL COCM 300 ng/mL OP 300 ng/mL PCP 25 ng/mL THC 20 ng/mLCapillary blood glucose measurement by glucometer (mass/volume)Ordered By: Regina Garcia on 49-01-5374Qstkozo [Mass/Vol]121 mg/vCUekk05-600AmfzjdqahShelby Memorial Hospital Comment on above:Result Comment: PERFORMED BY:[address] [place], [place] [phone] MEDICAL DIRECTORCARLOS VÁZQUEZ M.D.Performed By: #### ERBMP ####[address] [place] [address] USAGlucose [Mass/Vol]110 mg/dL NormalShelby Memorial HospitalComment on above:Random Glucose Reference Range [...] Serum or PlasmaOrdered By: Regina Garcia on 39-44-2953TH5 [Moles/Vol]17.7 mmol/LLow21.0-31.0Shelby Memorial HospitalComment on above:Performed By: #### PT, DIFF CBC, PTT, TSH3, CMP, CK, HS TROP, CBC, LIPASE ####[facility] [address] [place] [address] USAChloride [Moles/volume] in Serum or PlasmaOrdered By: Regina Garcia on 11-02-2024 Chloride [Moles/Vol]102 mmol/DSefcfx79-053ZabmjylcyShelby Memorial Hospital Comment on above:Performed By: #### PT, DIFF CBC, PTT, TSH3, CMP, CK, HS TROP, CBC, LIPASE ####[place] [address] USAColor of Urine by AutoOrdered By: Regina Garcia on 15-21-2608Jsyks (U)[facility] Community HospitalComment on above:Order Comment: Name Collection Type:: Pandya CatheterPerformed By: #### ADDONUAPLUS, URDS ####[place] [id number] [facility] Complete Blood Count Auto Diffon 43-42-1218Lsgm Corpuscular HGB Conc33.0 g/dL Qgofnp42.0-35.0The [facility] Physician GroupComment on above:Performed By: #### PT, DIFF CBC, PTT, TSH3, CMP, CK, HS TROP, CBC, LIPASE ####[place] [address] USAWhite Blood Count9.1 [CFU]/mL Normal3.8-11.6The [facility] Physician GroupComment on above:Performed By: #### PT, DIFF CBC, PTT, TSH3, CMP, CK, HS TROP, CBC, LIPASE ####[place] [phone] USAComprehensive Metabolic Panel on 32-88-3149Aawveqe [Mass/Vol]3.5 g/dLNormal3.5-5.7The [facility] Physician GroupComment on above:Performed By: #### PT, DIFF CBC, PTT, TSH3, CMP, CK, HS TROP, CBC, LIPASE ####[place] [phone] USAGFR/1.73 sq M.predicted MDRD (S/P/Bld) [Vol rate/Area]14.695 mL/min/{1.73_m2}NormalThe [facility] Physician GroupComment on above:Performed By: #### PT, DIFF CBC, PTT, TSH3, CMP, CK, HS TROP, CBC, LIPASE ####[place] [address] USACreatine kinase [Enzymatic activity/volume] in Serum or PlasmaOrdered By: Regina Garcia on 22-15-6999NP [Catalytic activity/Vol]140 U/QTprybn95-235TnpdqndpeShelby Memorial HospitalComment on above:Performed By: #### PT, DIFF CBC, PTT, TSH3, CMP, CK, HS TROP, CBC, LIPASE ####[address] [place] [address] USACreatinine [Mass/volume] in Serum or PlasmaOrdered By: Regina Garcia on 40-76-0065Utdwtacojn [Mass/Vol]3.19 mg/dLHigh0.60-1.20 [facility] HospitalComment on above:Performed By: #### PT, DIFF CBC, PTT, TSH3, CMP, CK, HS TROP, CBC, LIPASE ####[address] [place] [address] USADiff and CBCon 11-02-2024 Metamyelocytes4 %High0-0The [facility] Physician GroupComment on above:Performed By: #### PT, DIFF CBC, PTT, TSH3, CMP, CK, HS TROP, CBC, LIPASE ####[address] [address] USAMonocytes/100 WBC (Bld)33.42 %High0.00-20.00[facility] Physician [facility] Adult Care UnitComment on above:Result Comment: For adults in ED, MDW > 20.0 may be associated with a higher risk of sepsis during the first 12 hrs of hospital admission The predictive value of MDW for identifying sepsis in patients with hematological abnormalities has not been establishedPerformed By: #### PT, DIFF CBC, PTT, TSH3, CMP, CK, HS TROP, CBC, LIPASE ####[address] [address] USAMyelocytes1 %High0-0The [facility] Physician GroupComment on above: Performed By: #### PT, DIFF CBC, PTT, TSH3, CMP, CK, HS TROP, CBC, LIPASE ####[address] [address] [place] Platelet EstimateNormalNormalNormalThe Crichton Rehabilitation CenterComment on above:Performed By: #### PT, DIFF CBC, PTT, TSH3, CMP, CK, HS TROP, CBC, LIPASE ####[address] [address] [place] Platelet MorphologyNormalNormHollywood Medical Center Physician [facility] Adult Care UnitComment on above:Result Comment: PERFORMED BY:[address] [place], [place] [phone] MEDICAL JACKELYN VÁZQUEZ M.D.Performed By: #### PT, DIFF CBC, PTT, TSH3, CMP, CK, HS TROP, CBC, LIPASE ####[address] [address] USAToxic VacuolationSlightHCA Florida Lawnwood Hospital Physician [facility] Care UnitComment on above:Performed By: #### PT, DIFF CBC, PTT, TSH3, CMP, CK, HS TROP, CBC, LIPASE ####[address] [address] USADipstick and Microscopicon 09-40-3651Yfzbiqpe,UrineNone SeenNormalNone SeenSt. Joseph'S Hospital Physician [facility] Care UnitComment on above:Order Comment: Name Collection Type:: Pandya CatheterPerformed By: #### JOSE LUIS, URDS ####[address] [address] USABilirubin,UrineNegativeNormalNegative The [facility] Physician GroupComment on above:Order Comment: Name Collection Type:: Pandya CatheterPerformed By: #### ANAPLUS, URDS ####[address] [address] USAGlucose Ql (U)NormalNormal NormalSt. Joseph'S Hospital Physician GroupComment on above:Order Comment: Name Collection Type:: Pandya CatheterPerformed By: #### ANAPLUS, URDS ####[address] [address] USAHyaline Casts,Unriy78-96Vmhuip4-9Axv [facility] Physician GroupComment on above:Order Comment: Name Collection Type:: Pandya CatheterPerformed By: #### JOSE LUIS, URDS ####[address] [place] [address] [place] Mucus,UrineRareNormalThe [facility] Physician GroupComment on above:Order Comment: Name Collection Type:: Pandya CatheterResult Comment: PERFORMED BY:[place] [address] [place], [place] [phone] MEDICAL JACKELYN VÁZQUEZ M.D.Performed By: #### JOSE LUIS, URDS ####[address] [address] USANitrite,UrineNegativeNormalNegativeThe [facility] Group Comment on above:Order Comment: Name Collection Type:: Pandya CatheterPerformed By: #### JOSE LUIS, URDS ####[address] [address] USAOccult Blood,UrineTraceNormalNegativeThe [facility] Physician GroupComment on above:Order Comment: Name Collection Type:: Pandya CatheterResult Comment: PERFORMED BY:[address] [place] [address] [place], [place] [phone] MEDICAL JACKELYN VÁZQUEZ M.D.Performed By: #### JOSE LUIS, URDS ####[address] [address] USARBC,Ilbip1-8Jabxcw9-4Auh [facility] Physician GroupComment on above:Order Comment: Name Collection Type:: Pandya Catheter Performed By: #### JOSE LUIS, URDS ####[address] [place] [address] USASpecificy Dumfries,Urine1.174Txjacu0.001-1.030 The [facility] Physician GroupComment on above:Order Comment: Name Collection Type:: Pandya CatheterPerformed By: #### JOSE LUIS, URDS ####[address] [address] USASquamous Epithelial Cell,Caqlc7-6Sltfbp2-5Qmp [facility] Physician GroupComment on above:Order Comment: Name Collection Type:: Pandya CatheterPerformed By: #### BELKISUAPLUS, URDS ####[place] [address] [place] Urobilinogen,UrineNormalNormalNormalThe [facility] Physician GroupComment on above:Order Comment: Name Collection Type:: Pandya CatheterPerformed By: #### JOSE LUIS, URDS ####[place] [address] USAWBC,Pjlkg6-9Txzqym3-8Rjk [facility] Physician GroupComment on above: Order Comment: Name Collection Type:: Pandya CatheterPerformed By: #### JOSE LUIS, URDS ####[place] [address] USADrug Screen,Urineon 30-87-4613Mrgxhztvahc Screen,UrineNegativeNormal NegativeThe [facility] Physician GroupComment on above:Performed By: #### JOSE LUIS, URDS ####[place] [phone] USABarbiturate Screen,UrineNegativeNormalNegativeThe [facility] Physician GroupComment on above:Performed By: #### JOSE LUIS, URDS ####[place] [id number] [facility] Benzodiazepines Screen,UrineNegativeNormalNegativeSt. [facility] Physician Group Comment on above:Performed By: #### JOSE LUIS, URDS ####[place] [id number] USACannabinoid Screen,Urine NegativeNormalNegativeThe [facility] Physician GroupComment on above:Result Comment: These are unconfirmed results and should not be used for legal purposes. Drug Cut-Off Concentration: AMPH 1000 ng/mL VIRGILIO 200 ng/mL OSCAR 200 ng/mL COCM 300 ng/mL OP 300 ng/mL PCP 25 ng/mL THC 20 ng/mLPERFORMED BY:[address] [place], [place] [phone] MEDICAL DIRECTORMARIO S KATHIE M.D.Performed By: #### ADDONUAPLUS, URDS ####[facility] [address] [place] [address] USACocaine Screen,UrineNegativeNormalNegativeSt. Joseph'S Hospital Physician GroupComment on above:Performed By: #### ADDONUAPLUS, URDS ####[facility] [address] [place] [address] USAOpiate Screen,Urine NegativeNormalNegativeThe [facility] Physician GroupComment on above:Performed By: #### ADDONUAPLUS, URDS ####[facility] [address] [place] [address] USAPhencyclidine Screen,UrineNegativeNormalNegativeThe [facility] Physician GroupComment on above:Performed By: #### TRISHONUAPLUS, URDS ####[address] [place] [address] USAECG 12 lead ECGon 32-55-1690FEF 12 lead ECGNormBroward Health Imperial Point Physician GroupECG 12 lead ECGNoFrye Regional Medical Center [facility] Physician GroupEosinophils Auto (Bld) [#/Vol]Ordered By: Regina Garcia on 20-64-5533Ljrjuxoesku (Bld) [#/Vol]N/[facility] HospitalEosinophils/100 WBC Auto (Bld)Ordered By: Regina Garcia on 52-32-9584Btmdswdvcrc/100 WBC (Bld)N/[facility] Epithelial cells.squamous [#/area] in Urine sediment by Automated countOrdered By: Regina Garcia on 12-41-5453Dacbuwsgik cells.squamous Auto (Urine sed) [#/Area]1-2 [HPF]0-2FWooster Community HospitalErythrocyte distribution width [Ratio] by Automated countOrdered By: Regina Garcia on 11-02-2024 Erythrocyte distribution width (RBC) [Ratio]16.8 %High11.9-15.3FWooster Community HospitalComment on above:Performed By: #### PT, DIFF CBC, PTT, TSH3, CMP, CK, HS TROP, CBC, LIPASE ####[facility] [address] [place] [address] USAErythrocyte morphology finding [Identifier] in BloodOrdered By: Regina Garcia on 69-74-7977QZS morphology finding Nom (Bld) N/[facility] HospitalErythrocytes [#/area] in Urine sediment by Automated countOrdered By: Regnia Garcia on 68-07-2062ADT Auto (Urine sed) [#/Area]1-2 [HPF]0-4FWooster Community HospitalErythrocytes [#/volume] in Blood by Automated countOrdered By: Regina Garcia on 14-80-4075QBS (Bld) [#/Vol]4.65 10*6/uLNormal3.60-5.00Shel[facility] Memorial HospitalComment on above:Performed By: #### PT, DIFF CBC, PTT, TSH3, CMP, CK, HS TROP, CBC, LIPASE ####[address] [address] USAEthanol [Mass/volume] in Serum or PlasmaOrdered By: Regina Garcia on 11-02-2024 Ethanol [Mass/Vol]mg/dLNoPaulding County HospitalComment on above: Performed By: #### LACTIC, ETOH, AMM ####[address] [address] USAEthyl Alcohol Profileon 34-79-2388Fppjclg EthanolNot performedNoFrye Regional Medical Center [facility] Campus Physician GroupComment on above:Result Comment: PERFORMED BY:[address] [address] [place], [place] [phone] MEDICAL JACKELYN VÁZQUEZ M.D.Performed By: #### LACTIC, ETOH, AMM ####[address] [address] USAGlucose Poct Glucometerson 19-33-7040Tbhcruo0Fgl3: Cleaned MeterNoFrye Regional Medical Center [facility] Campus Physician GroupComment on above:Result Comment: PERFORMED BY:[address] [address] [place], [place] [phone] MEDICAL JACKELYN VÁZQUEZ M.D.Performed By: #### GLULS ####Point of Care testing,Glucose [Mass/volume] in Serum or Plasma Ordered By: Regina Garcia on 28-57-4631Muidqdw [Mass/Vol]120 mg/iJVnmm89-775 [facility] HospitalComment on above:ADA recommended reference rangeRandom [...] TSH3, CMP, CK, HS TROP, CBC, LIPASE ####[place] [address] [place] [phone] USAGlucose [Mass/volume] in Urine by Test stripOrdered By: Regina Garcia on 01-41-6332Mliwmsd Test strip (U) [Mass/Vol] Normal mg/dLNormalShelby Memorial HospitalHematocrit [Volume Fraction] of Blood by Automated countOrdered By: Regina Garcia on 34-46-3753Zamslfetfm (Bld) [Volume fraction]39.1 %Qhcjfp50.0-46.4FWooster Community Hospital Comment on above:Performed By: #### PT, DIFF CBC, PTT, TSH3, CMP, CK, HS TROP, CBC, LIPASE ####[place] [address] [place] [phone] USAHemoglobin Test strip Ql (U)Ordered By: Regina Garcia on 11-02-2024 Hemoglobin Ql (U)TraceHighNegativeShelby Memorial HospitalHemoglobin [Mass/volume] in BloodOrdered By: Regina Garcia on 69-68-2284Erlqlcjmzc (Bld) [Mass/Vol]12.9 g/yTDtvppd42.8-15.4FWooster Community HospitalComment on above:Performed By: #### PT, DIFF CBC, PTT, TSH3, CMP, CK, HS TROP, CBC, LIPASE ####[address] [address] USAHyaline casts [#/area] in Urine sediment by Automated countOrdered By: Regina Garcia on 55-78-2757Bfxiamx casts Auto (Urine sed) [#/Area]20-49 [LPF]High0-8Shelby Memorial HospitalINR in Platelet poor plasma by Coagulation assayOrdered By: Regina Garcia on 88-16-2401MRF Coag (PPP) [Relative time]1.0 {INR}Normal [facility] HospitalComment on above:INR Therapeutic Range A) [...] TSH3, CMP, CK, HS TROP, CBC, LIPASE ####[address] [place] [address] USAISTAT ER Chem8+ Panelon 18-12-6848DC7 [Moles/Vol]20 mmol/YJss77-23Yep [facility] Physician GroupComment on above:Performed By: #### ERBMP ####[address] [place] [address] USAISTAT Ionized Calcium1.20 mol/LNormal1.12-1.32The [facility] Physician GroupComment on above:Performed By: #### ERBMP ####[address] [place] [address] USAISTAT ER Chem8+ PanelOrdered By: Regina Garcia on 16-65-2210Mznolzmbtg (Bld) [Volume fraction]45.0 %Otwhvj34.0-51.0[facility] Comment on above:Performed By: #### ERBMP ####[address] [address] USAKetones [Presence] in Urine by Test strip Ordered By: Regina Garcia on 61-95-0066Gvanibn Ql (U)NegativeNormalNegative [facility] HospitalComment on above:Order Comment: Name Collection Type:: Pandya CatheterPerformed By: #### ADDONUAPLUS, URDS ####[address] [place] [address] USALactate [Moles/volume] in Serum or PlasmaOrdered By: Regina Garcia on 11-02-2024 Lactate [Moles/Vol]2.7 mmol/LOff scale high0.5-1.9S[facility] HospitalComment on above:Critical Result : Called [...] the critical range of 2.0 or greater.PERFORMED BY:[address] [place] [address] [place], [place] [phone] MEDICAL JACKELYN VÁZQUEZ M.D.Performed By: #### LACTIC, ETOH, AMM ####[address] [address] USALactic Acidon 50-89-0446Qpvjavy [Moles/Vol]1.4 mmol/LNormal0.5-1.9The [facility] Physician GroupComment on above:Order Comment: JAY[place] [address]Result Comment: Lactic Acid reference range has been updated to 0.5 ? 1.9 mmol/L and the critical range of 2.0 or greater.PERFORMED BY:[address] [place], [place] [phone] MEDICAL DIRECTORCARLOS VÁZQUEZ M.D.Performed By: #### LACTIC ####[address] [address] USALeukocyte esterase [Presence] in Urine by Test stripOrdered By: Regina Garcia on 83-45-7093Nbgvchswx esterase Test strip Ql (U)NegativeNormalNegativeShelby Memorial HospitalComment on above:Order Comment: Name Collection Type:: Pandya Catheter Performed By: #### ADDONUAPLUS, URDS ####[address] [address] USALeukocytes [#/area] in Urine sediment by Automated countOrdered By: Regina Garcia on 05-57-4807JXK Auto (Urine sed) [#/Area]1-2 [HPF]0-4FWooster Community HospitalLeukocytes [#/volume] corrected for nucleated erythrocytes in Blood by Automated counOrdered By: Regina Garcia on 21-32-9271VOR corrected for nucl RBC Auto (Bld) [#/Vol]9.1 10*3/uL3.8-11.6FWooster Community HospitalLeukocytes [#/volume] in Blood by Automated countOrdered By: Regina Garcia on 41-58-3132DEV (Bld) [#/Vol]9.1 10*3/uLNormal3.8-11.6FWooster Community HospitalComment on above:Performed By: #### PT, DIFF CBC, PTT, TSH3, CMP, CK, HS TROP, CBC, LIPASE ####[address] [place] [address] USALipase [Enzymatic activity/volume] in Serum or PlasmaOrdered By: Regina Garcia on 11-02-2024 Lipase [Catalytic activity/Vol]12.0 U/YLukfki83.0-82.0S[facility] HospitalComment on above:Performed By: #### PT, DIFF CBC, PTT, TSH3, CMP, CK, HS TROP, CBC, LIPASE ####[facility] [place] [id number] [facility]ITLymph[facility] Auto (Bld) [#/Vol]Ordered By: Regina Garcia on 13-40-4257Dgtjzxxhafs (Bld) [#/Vol]N/[facility] Lymphocytes/100 WBC Auto (Bld)Ordered By: Regina Garcia on 11-02-2024 Lymphocytes/100 WBC (Bld)N/[facility] HospitalLymphocytes/100 leukocytes in Blood by Manual countOrdered By: Regina Garcia on 11-02-2024 Lymphocytes/100 WBC (Bld)5 %Ihi18-93DjjdmbprdShelby Memorial HospitalComment on above:Performed By: #### PT, DIFF CBC, PTT, TSH3, CMP, CK, HS TROP, CBC, LIPASE ####[place] [address] [facility] [Entitic mass] by Automated countOrdered By: Regina Garcia on 92-09-1071NMT (RBC) [Entitic mass]27.8 faMkibim39.7-34.3FWooster Community Hospital Comment on above:Performed By: #### PT, DIFF CBC, PTT, TSH3, CMP, CK, HS TROP, CBC, LIPASE ####[place] [address] [facility] Auto (RBC) [Mass/Vol]Ordered By: Regina Garcia on 70-57-0348XCDY (RBC) [Mass/Vol]33.0 g/dL32.0-35.0S[facility] Memorial HospitalMCV [Entitic volume] by Automated countOrdered By: Regina Garcia on 27-01-7978PDD (RBC) [Entitic vol]84.1 pKKmhyns89-659IsqrkbnnmShelby Memorial HospitalComment on above:Performed By: #### PT, DIFF CBC, PTT, TSH3, CMP, CK, HS TROP, CBC, LIPASE ####[place] [address] [facility] Metamyelocytes/100 WBC Manual cnt (Bld)Ordered By: Regina Garcia on 11-02-2024 Metamyelocytes/100 WBC (Bld)4 %High0-0S[facility] Memorial HospitalMonocyte distribution width [Entitic volume] in Blood by AutomatedOrdered By: Regina Garcia on 19-10-1997Gfakeuau distribution width Auto (Bld) [Entitic vol]33.42 % High0.00-20.00S[facility] HospitalComment on above:For adults in ED, MDW > 20.0 may be associated with a higher risk of sepsis during the first 12 hrs of hospital admissionThe predictive value of MDW for identifying sepsis in patients with hematological abnormalities has not been establishedMonocytes Auto (Bld) [#/Vol]Ordered By: Regina Garcia on 81-66-7269Jgyzfmpyb (Bld) [#/Vol]N/[facility] HospitalMonocytes/100 WBC Auto (Bld)Ordered By: Regina Garcia on 46-97-9927Ppshtnrdj/100 WBC (Bld)NUC HealthMonocytes/100 leukocytes in Blood by Manual countOrdered By: Regina Garcia on 18-01-7489Rixtfcohs/100 WBC (Bld)9 %Normal2-11S[facility] HospitalComment on above:Performed By: #### PT, DIFF CBC, PTT, TSH3, CMP, CK, HS TROP, CBC, LIPASE ####[facility] [address] [place] [address] USAMucus [Presence] in Urine by AutomatedOrdered By: Regina Garcia on 64-50-1866Xqyzb Auto Ql (U)Rare [LPF][facility] Memorial HospitalMyelocytes/100 WBC Manual cnt (Bld)Ordered By: Regina Garcia on 12-11-8577Sgqiuiolul/100 WBC (Bld)1 %High00[facility] Neutrophils Auto (Bld) [#/Vol]Ordered By: Regina Garcia on 11-02-2024 Neutrophils (Bld) [#/Vol]N/[facility] HospitalNeutrophils/100 WBC Auto (Bld)Ordered By: Regina Garcia on 05-42-6222Mhjjqjafnzh/100 WBC (Bld)N/A [facility] Memorial HospitalNitrite Test strip Ql (U)Ordered By: Regina Garcia on 48-70-5685Wzvotws Ql (U)NegativeNegSelect Medical Cleveland Clinic Rehabilitation Hospital, BeachwoodNo Panel InformationOrdered By: Regina Garcia on 79-27-0254Bwcmo Gas Critical ValueSee commentShelby Memorial HospitalComment on above: Critical Value called on: 11/02/2024 at 12:37Blood Gas Sample SiteVenous Shelby Memorial HospitalFiO221 %[facility] Memorial HospitalVenous Blood Base Excess-5.8 mmol/LLow-3.0-3.0[facility] Memorial HospitalVenous Blood Oxygen Content7.4 mmol/L6.6-9.7FWooster Community HospitalVenous Blood Oxygen Yppfzqypmo24.4 %Critically high73.0-76.0S[facility] Memorial HospitalVenous Blood Partial Pressure CO238.1 mm[Hg]38.0-50.0S[facility] Memorial HospitalVenous Blood Partial Pressure O254.5 mm[Hg]High35.0-45.0S[facility] Memorial HospitalVenous Blood pH7.337.32-7.43S[facility] HospitalBedside Glucose CommentGlu2: cleaned meterShelby Memorial HospitalEstimated GFR (CKD-EPI)14.695 mL/MinShelby Memorial Hospital Pharmacy Creatinine Clearance (ChemN/[facility] HospitalNucleated erythrocytes [Presence] in Blood by Automated countOrdered By: Regina Garcia on 13-72-2885Llsqdhbes RBC Auto Ql (Bld)N/[facility] Opiates [Presence] in Urine by Screen methodOrdered By: Regina Garcia on 33-11-3036Fqqpgsf Screen Ql (U)NegativeNegSelect Medical Cleveland Clinic Rehabilitation Hospital, Beachwood Partial Thromboplastin Timeon 65-81-7807eANO Coag (Bld) [Time]30.9 sNormal 25.1-36.5The [facility] Physician GroupComment on above:Result Comment: A hematocrit value greater than 55% may lead to inaccurate results in coagulation testing. Patients having hematocrit values >55% require a special collection tube for coagulation studies. Please contact the laboratory at [phone] for redraw instructions.PERFORMED BY:[address] [place], [place] [phone] MEDICAL JACKELYN VÁZQUEZ M.D.Performed By: #### PT, DIFF CBC, PTT, TSH3, CMP, CK, HS TROP, CBC, LIPASE ####[address] [address] [facility] Phencyclidine Screen Ql (U)Ordered By: Regina Garcia on 11-02-2024 Phencyclidine Ql (U)NegativeNegativeShelby Memorial HospitalPlatelet adequacy [Presence] in Blood by Light microscopyOrdered By: Regina Garcia on 67-01-4484Xdbpbjgnq LM Ql (Bld)NormalNoPaulding County Hospital Platelet mean volume [Entitic volume] in Blood by Automated countOrdered By: Regina Garcia on 88-06-4198Rtrwsicm mean volume (Bld) [Entitic vol]8.3 fL Normal6.3-10.7FWooster Community HospitalComment on above:Result Comment: PERFORMED BY:[address] [place], [place] [phone] MEDICAL JACKELYN VÁZQUEZ M.D.Performed By: #### PT, DIFF CBC, PTT, TSH3, CMP, CK, HS TROP, CBC, LIPASE ####[address] [address] USAPlatelet morphology finding [Identifier] in BloodOrdered By: Regina Garcia on 11-86-4153Dkqivbtx morphology finding Nom (Bld)NormalUC Medical Center Platelets [#/volume] in Blood by Automated countOrdered By: Regina Garcia on 42-43-5860Worvwrgjo (Bld) [#/Vol]325 10*3/gLSndhso305-305TcnhhiefaShelby Memorial HospitalComment on above:Performed By: #### PT, DIFF CBC, PTT, TSH3, CMP, CK, HS TROP, CBC, LIPASE ####[address] [address] USAPotassium [Moles/volume] in Serum or PlasmaOrdered By: Regina Garcia on 27-35-8018Tabpvqofg [Moles/Vol]5.3 mmol/LHigh3.5-5.1 [facility] HospitalComment on above:Performed By: #### PT, DIFF CBC, PTT, TSH3, CMP, CK, HS TROP, CBC, LIPASE ####[address] [place] [address] USAProtein [Mass/volume] in Serum or PlasmaOrdered By: Regina Garcia on 49-80-3893Zejkgtc [Mass/Vol]6.0 g/dLLow 6.4-8.9S[facility] HospitalComment on above:Performed By: #### PT, DIFF CBC, PTT, TSH3, CMP, CK, HS TROP, CBC, LIPASE ####[address] [place] [address] USAProtein [Mass/volume] in Urine by Test stripOrdered By: Regina Garcia on 97-62-9216Qvhahqr (U) [Mass/Vol]30 mg/dLNormalNegativeShelby Memorial HospitalComment on above:Order Comment: Name Collection Type:: Pandya CatheterPerformed By: #### ADDONUAPLUS, URDS ####[address] [place] [address] [facility] Prothrombin time (PT)Ordered By: Regina Garcia on 04-95-8160TO Coag (PPP) [Time]11.6 sNormal9.0-12.9S[facility]by Memorial HospitalComment on above:A hematocrit value greater than 55% may lead to inaccurate results in coagulation testing. Patientshaving hematocrit values >55% require a special collection tube for coagulation studies. Please contact the laboratory at [phone] for redraw instructions.Result Comment: A hematocrit value greater than 55% may lead to inaccurate results in coagulation testing. Patients having hematocrit values >55% require a special collection tube for coagulation studies. Please contact the laboratory at [phone] for redraw instructions.Performed By: #### PT, DIFF CBC, PTT, TSH3, CMP, CK, HS TROP, CBC, LIPASE ####[address] [place] [address] USASegmented neutrophils/100 leukocytes in Blood by Manual countOrdered By: Regina Garcia on 11-02-2024 Segmented neutrophils/100 WBC (Bld)58 %Aakvsy59-62LeeeaifveShelby Memorial HospitalComment on above:Performed By: #### PT, DIFF CBC, PTT, TSH3, CMP, CK, HS TROP, CBC, LIPASE ####[address] [place] [address] USASerum globulin measurement by calculation (mass/volume)Ordered By: Regina Garcia on 66-01-3422Wchsmame (S) [Mass/Vol]2.5 g/dLNormalShelby Memorial HospitalComment on above:Performed By: #### PT, DIFF CBC, PTT, TSH3, CMP, CK, HS TROP, CBC, LIPASE ####[address] [place] [address] USASerum or plasma albumin/globulin mass ratioOrdered By: Regina Garcia on 07-39-5315Tbezcuq/Globulin [Mass ratio]1.4 {ratio}Normal [facility] HospitalComment on above:Performed By: #### PT, DIFF CBC, PTT, TSH3, CMP, CK, HS TROP, CBC, LIPASE ####[address] [address] USASerum or plasma anion gap determinationOrdered By: Regina Garcia on 73-00-1517Zgram gap [Moles/Vol]17.6 mmol/LHigh6.0-15.0[facility] HospitalComment on above:Performed By: #### PT, DIFF CBC, PTT, TSH3, CMP, CK, HS TROP, CBC, LIPASE ####[address] [address] USASerum or plasma ethanol measurement (mass/volume)Ordered By: Regina Garcia on 11-02-2024 Ethanol [Mass/Vol]TNPShelby Memorial HospitalComment on above:Test not performedSodium [Moles/volume] in Serum or PlasmaOrdered By: Regina Garcia on 08-45-2225Qovuqq [Moles/Vol]132 mmol/HEcd955-569UkmmnfyfuShelby Memorial HospitalComment on above:Performed By: #### PT, DIFF CBC, PTT, TSH3, CMP, CK, HS TROP, CBC, LIPASE ####[address] [place] [address] USASpecific gravity Test strip (U) [Rel density]Ordered By: Regina Garcia on 09-51-7371Lcftdnri gravity (U) [Rel density]1.0231.001-1.030[facility] Hospitaltool Occult Blood (Guaiac)on 70-89-1585Ckgvr Occult Blood (Guaiac)NormalThe [facility] Physician GroupComment on above:Performed By: #### OB(GUAIAC) ####[address] [place], [place] [address]KMSBwdmh gastrointestinal hemoglobin detectionOrdered By: Regina Garcia on 62-29-4454Fxtlhbzjbx.gastrointestinal Ql (Stl)[facility] Memorial HospitalThyrotropin [Units/volume] in Serum or PlasmaOrdered By: Regina Garcia on 97-56-0239ZBV Qn2.44 m[IU]/LNormal0.45-5.33[facility] Comment on above:Result Comment: PERFORMED BY:[address] [place] [place], [place] [phone] MEDICAL DIRECTORCARLOS VÁZQUEZ M.D.Performed By: #### PT, DIFF CBC, PTT, TSH3, CMP, CK, HS TROP, CBC, LIPASE ####[address] [place] [address] USAToxic leukocyte vacuolation detectionOrdered By: Regina Garcia on 41-27-4853Oqfrtugoh toxic vacuoles LM Ql (Bld)SlightShelby Memorial HospitalTroponin I High Sensitivityon 96-67-4170Wfwkieiy I High Xgnvuahpebg46Rvme2-95Fey [facility] Physician GroupComment on above:Result Comment: The Troponin units of report have been changed to meet the Chest Pain Accreditationrequirement, element EC5.M1l2. Troponin units are changed from pg/ml to ng/L. Also, the decimal is removed and results are in whole numbers.PERFORMED BY:[address] [place], [place] [phone] MEDICAL DIRECTORCARLOS VÁZQUEZ M.D.Performed By: #### PT, DIFF CBC, PTT, TSH3, CMP, CK, HS TROP, CBC, LIPASE ####[facility] [address] [place] [address] USATroponin I.cardiac [Mass/volume] in Serum or Plasma by Detection limit <= 0.01 ng/mLOrdered By: Regina Garcia on 84-51-1473Eznecxpy I.cardiac DL <= 0.01 ng/mL [Mass/Vol]28 ng/LHigh0-15Shel[facility] HospitalComment on above:The Troponin units of report have been changed to meet the Chest Pain Accreditation requirement, element EC5.M1l2. Troponin units are changed from pg/ml to ng/L. Also, the decimal is removed and results are in whole numbers.Urea nitrogen [Mass/volume] in Serum or PlasmaOrdered By: Regina Garcia on 96-72-7632Ilix nitrogen [Mass/Vol]77 mg/dLChestnut Ridge Center7-25Shelby Memorial HospitalComment on above: Performed By: #### PT, DIFF CBC, PTT, TSH3, CMP, CK, HS TROP, CBC, LIPASE ####[facility] [place] [address] [facility] Urobilinogen Test strip (U) [Mass/Vol]Ordered By: Regina Garcia on 11-02-2024 Urobilinogen (U) [Mass/Vol]Normal mg/dLNormalShelby Memorial Hospital Venous Blood GasOrdered By: Regina Garcia on 60-13-3105OB8 [Moles/Vol]20.7 mmol/LLow24.0-29.0S[facility]by Memorial HospitalComment on above:Performed By: #### VBG ####Point of Care testing,HCO3 (Bld) [Moles/Vol]19.5 mmol/LLow 23.0-29.0Shelby Memorial HospitalComment on above:Performed By: #### VBG ####Point of Care testing,Venous Blood Gason 51-67-1708Tprayizggyg Critical NormalThe [facility] Physician GroupComment on above:Result Comment: Critical Value called on: 11/02/2024 at 12:37PERFORMED BY:[facility] [place], [place] [phone] MEDICAL DIRECTORCARLOS VÁZQUEZ M.D.Performed By: #### VBG ####Point of Care testing, VBG Base Excess-5.8 mmol/LLow-3.0-3.0The [facility] Physician GroupComment on above:Performed By: #### VBG ####Point of Care testing,VBG Draw SiteVenousNormal The [facility] Physician GroupComment on above:Performed By: #### VBG ####Point of Care testing,VBG Frac Inspired O221 %NormalThe [facility] Physician Group Comment on above:Performed By: #### VBG ####Point of Care testing,VBG O2 Content 7.4 mmol/LNormal6.6-9.7The [facility] Physician GroupComment on above:Performed By: #### VBG ####Point of Care testing,VBG Oxygen Dogguzxbli17.4 %Off scale high 73.0-76.0The [facility] Physician GroupComment on above:Performed By: #### VBG ####Point of Care testing,VBG ECR907.1 mm[Hg]Fyvsxu14.0-50.0The [facility] Physician GroupComment on above:Performed By: #### VBG ####Point of Care testing,VBG PH Venous PH7.79Zvvbva7.32-7.43The [facility] Physician [facility] Adult Care UnitComment on above:Performed By: #### VBG ####Point of Care testing,VBG PO254.5 mm[Hg]High 35.0-45.0The [facility] Physician GroupComment on above:Performed By: #### VBG ####Point of Care testing,Whole blood chloride measurementOrdered By: Regina Garcia on 40-18-6278Iuxawclv [Moles/Vol]102.0 mmol/TTuckzm58-562UcufwfbusShelby Memorial HospitalComment on above:Performed By: #### ERBMP ####[id number] USAWhole blood creatinine measurementOrdered By: Regina Garcia on 84-12-1322Whiroaalqk [Mass/Vol]3.3 mg/dLHigh0.6-1.3FWooster Community HospitalComment on above: ER/ESD physician is notified/shown all ISTAT results.Critical values may be confirmed by laboratorytesting ifdeemed necessary by ER attending doctor.Result Comment: ER/ESD physician is notified/shown all ISTAT results. Critical values may be confirmed by laboratory testing if deemed necessary by ER attending doctor.Performed By: #### ERBMP ####[id number] USAWhole blood ionized calcium measurement (moles/volume)Ordered By: Regina Garcia on 44-08-0047Mxsprja.ionized (Bld) [Moles/Vol]1200 mmol/L1.12-1.32S[facility] HospitalWhole blood potassium measurementOrdered By: Regina Garcia on 00-30-5611Whssvvexg [Moles/Vol]5.2 mmol/LHigh3.5-4.9S[facility] HospitalComment on above:Performed By: #### ERBMP ####[id number] USAWhole blood sodium measurementOrdered By: Regina Garcia on 81-82-4605Vjmpsn [Moles/Vol]135 mmol/ZHqe657-822DsxnzsenpShelby Memorial HospitalComment on above:Performed By: #### ERBMP ####[id number] USAX-ray reportOrdered By: Alvaro Reid on 83-28-5977Xelpi reportWAYNE [facility] [address] [place] [address] XRay Report Signed Patient: Renuka Owen MR#: [id number] : 1950 Acct:[id number] Age/Sex: 73 / F ADM Date: 5 Loc: ER Room: Type: [facility] ER Attending Dr: Copies to: Regina Garcia, [...] 11/02/2024 3:05 PM Dictation Location: [facility]--20 Transcribed By: [facility] 11/02/24 1505 Dictated By: Alvaro Reid DO 11/02/24 1504 Signed By: 11/02/24 1505 [facility] HospitalXR chest 1V portableon 61-19-3869BG chest 1V portableHCA Florida Lawn[facility] Hospital Physician GroupaPTT in Platelet poor plasma by Coagulation assayOrdered By: Regina Garcia on 68-02-3240kIBX Coag (PPP) [Time] 30.9 s25.1-36.5FWooster Community HospitalComment on above:A hematocrit value greater than 55% may lead to inaccurate results in coagulation testing. Patientshaving hematocrit values >55% require a special collection tube for coagulation studies. Please contact the laboratory at [phone] for redraw instructions.pH of Urine by Test stripOrdered By: Regina Garcia on 11-02-2024 pH (U)5.0 [pH]Normal5.0-9.0S[facility] Memorial HospitalComment on above: Order Comment: Name Collection Type:: Pandya CatheterPerformed By: #### ADDONUAPLUS, URDS ####[facility] [address] [place] [address] USABasophils Auto (Bld) [#/Vol]on 03-68-9781Hvzmvzwdd (Bld) [#/Vol]0.1 10 3/uL0.0-0.1FWooster Community HospitalBasophils/100 WBC Auto (Bld)on 73-28-4812Nuadcgbes/100 WBC (Bld)0.9 %0.2-2.0[facility] Eosinophils/100 WBC Auto (Bld)on 58-87-1158Detlqszwlcr/100 WBC (Bld)3.4 %0.9-7.0 [facility] HospitalErythrocyte distribution width Auto (RBC) [Ratio]on 41-39-7350Wngqonrgwiz distribution width (RBC) [Ratio]17.2 %High 11.0-15.0S[facility] HospitalEstimated glomerular filtration rate (GFR) non- Americanon 70-70-1433UTL/1.73 sq M.predicted among non-blacks MDRD (S/P/Bld) [Vol rate/Area]21 mL/min/{1.73_m2}Low>=60 mL/min/1.73m 2FWooster Community HospitalHematocrit Auto (Bld) [Volume fraction]on 10-13-2024 Hematocrit (Bld) [Volume fraction]35.1 %Low36.0-48.0[facility] HospitalHemoglobin [Mass/volume] in Bloodon 99-61-8738Pkkgtfctul (Bld) [Mass/Vol] 11.3 g/dLLow12.0-16.0[facility] HospitalLaboratory - Chemistry and Chemistry - challengeon 05-87-3906Nuiejyl [Mass/Vol]9.6 mg/dL8.5-10.1FWooster Community HospitalChloride [Moles/Vol]100 mmol/D96-238EwfisulkjShelby Memorial HospitalCO2 [Moles/Vol]34.1 mmol/LHigh21.0-32.0[facility] HospitalCreatinine [Mass/Vol]2.31 mg/dLHigh0.55-1.02[facility] HospitalGFR/1.73 sq M.predicted MDRD (S/P/Bld) [Vol rate/Area]25 mL/min/{1.73_m2} Low>=60 mL/min/1.73m 2FWooster Community HospitalGlucose [Mass/Vol]92 mg/fP91-302DwpyssxerShelby Memorial HospitalPotassium [Moles/Vol]4.9 mmol/L 3.5-5.1FNationwide Children's Hospitalodium [Moles/Vol]138 mmol/V981-842 [facility] HospitalUrea nitrogen [Mass/Vol]62.0 mg/dLHigh7.0-18.0 [facility] HospitalUrea nitrogen/Creatinine [Mass ratio]26.8 mg/mg [facility] HospitalLaboratory - Hematology and Cell countson 69-45-4821Qbraftdx granulocytes/100 WBC (Bld)0.4 %0.0-0.5FWooster Community HospitalLeukocytes [#/volume] corrected for nucleated erythrocytes in Blood by Automated counon 43-24-3816ASQ corrected for nucl RBC Auto (Bld) [#/Vol]8.0 10 3/uL4.0-11.0S[facility] HospitalLymphocytes Auto (Bld) [#/Vol]on 11-50-0226Mzhamrvhhse (Bld) [#/Vol]1.2 10 3/uL1.2-3.8[facility] HospitalLymphocytes/100 WBC Auto (Bld)on 10-13-2024 Lymphocytes/100 WBC (Bld)15.0 %Low20.5-60.0[facility]erry HospitalH Auto (RBC) [Entitic mass]on 81-03-4686HVH (RBC) [Entitic mass]27.3 pg26.7-34.0 [facility] HospitalMCHC Auto (RBC) [Mass/Vol]on 34-89-2368CUWC (RBC) [Mass/Vol]32.2 g/dL29.9-35.2FWooster Community HospitalMCV Auto (RBC) [Entitic vol]on 47-01-3852DKG (RBC) [Entitic vol]84.8 fL81.0-99.0[facility] HospitalMonocytes Auto (Bld) [#/Vol]on 41-48-3999Keqsnfjpq (Bld) [#/Vol]1.1 10 3/uLHigh0.3-0.8[facility] HospitalMonocytes/100 WBC Auto (Bld)on 83-49-0489Ephulpqwr/100 WBC (Bld)13.5 %High1.7-12.0S[facility] HospitalNeutrophils Auto (Bld) [#/Vol]on 08-98-8359Zofeybmjzux (Bld) [#/Vol]5.3 10 3/uL1.4-6.5FWooster Community HospitalNeutrophils/100 WBC Auto (Bld)on 41-83-4876Jwfxuodydht/100 WBC (Bld)66.8 %43.0-75.0[facility] HospitalNo Panel Informationon 84-25-6541Xfasafgjcfj # (Auto)0.3 10 3/uL0.0-0.7FWooster Community HospitalImmature Granulocyte # (Auto)0.03 10 3/uL0.00-0.03S[facility] HospitalPlatelet mean volume Auto (Bld) [Entitic vol]on 69-96-5476Weprtzcr mean volume (Bld) [Entitic vol]9.6 fL 9.5-13.5FWooster Community HospitalPlatelets Auto (Bld) [#/Vol]on 69-66-8841Pexawvqoq (Bld) [#/Vol]305 10 3/oK762-978FbpeltcxkShelby Memorial HospitalRBC Auto (Bld) [#/Vol]on 63-61-8960MOV (Bld) [#/Vol]4.14 10 6/uLLow 4.20-5.40[facility] Memorial Hospitalerum or plasma anion gap determinationon 67-82-2311Grjnh gap [Moles/Vol]8.8 mmol/LFWooster Community HospitalXR Foot - left 3 Viewson 02-39-3150Uzistek Result: 3 views left foot: Weight-bearing: DP, oblique, lateral: 09/28/2024: Unremarkable for acute osseous or joint pathology. Unremarkable for fracture or stress fracture changes. 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 Arthritic changes of the navicular-cuneiform joint as well. 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.[facility] N[facility] HealthcareRadiology Study observation (narrative)[facility] HealthcareBasophils Auto (Bld) [#/Vol]on 74-58-2968Ljhehzgib (Bld) [#/Vol]Automated basophil count 0.0-0.1FWooster Community HospitalBasophils (Bld) [#/Vol]0.1 10 3/uL 0.0-0.1FWooster Community HospitalBasophils/100 WBC Auto (Bld)on 79-28-3465Eryyzvfgd/100 WBC (Bld)Automated basophil %0.2-2.0[facility] HospitalBasophils/100 WBC (Bld)1.0 %0.2-2.0[facility] HospitalEosinophils/100 WBC Auto (Bld)on 99-75-9402Cggnqnqxnhk/100 WBC (Bld) Automated eosinophil %0.9-7.0[facility] HospitalEosinophils/100 WBC (Bld)4.6 %0.9-7.0[facility] HospitalErythrocyte distribution width Auto (RBC) [Ratio]on 34-01-3534Qnsogjxyowg distribution width (RBC) [Ratio]Erythrocyte distribution width [Ratio] by Automated ugcmwPxyg06.0-15.0 [facility] HospitalErythrocyte distribution width (RBC) [Ratio] 15.6 %High11.0-15.0[facility] HospitalEstimated glomerular filtration rate (GFR) non- Americanon 05-02-5067FFT/1.73 sq M.predicted among non-blacks MDRD (S/P/Bld) [Vol rate/Area]Estimated glomerular filtration rate (GFR) non- AmericanLow>=60 mL/min/1.73m [address] [place], [place] [address]GFR/1.73 sq M.predicted among non-blacks MDRD (S/P/Bld) [Vol rate/Area]32 mL/min/{1.73_m2}Low>=60 mL/min/1.73m [address] [place], [place] [address]Globulin Calc (S) [Mass/Vol]on 34-92-1687Boghkdwv (S) [Mass/Vol]Serum globulin measurement by calculation (mass/volume)[facility] Globulin (S) [Mass/Vol]3.5 g/dLShelby Memorial HospitalHematocrit Auto (Bld) [Volume fraction]on 84-97-0802Enwnddhosp (Bld) [Volume fraction]Hematocrit [Volume Fraction] of Blood by Automated ucxfyYtv73.0-48.0[facility] HospitalHematocrit (Bld) [Volume fraction]33.6 %Low36.0-48.0[facility] HospitalHemoglobin [Mass/volume] in Bloodon 22-89-3704Dfyuscvswk (Bld) [Mass/Vol]Hemoglobin [Mass/volume] in JboktJao34.0-16.0[facility] HospitalHemoglobin (Bld) [Mass/Vol]11.0 g/dLLow12.0-16.0[facility] HospitalLaboratory - Chemistry and Chemistry - challengeon 09-05-2024 Albumin [Mass/Vol]3.7 g/dL3.4-5.0[facility] HospitalALP [Catalytic activity/Vol]82 U/E24-966EpxrqrsbaShelby Memorial HospitalALT [Catalytic activity/Vol]20 U/U95-87VjyenpoqzShelby Memorial HospitalAST [Catalytic activity/Vol]21 U/R89-67MtiaynqcgShelby Memorial HospitalBilirubin [Mass/Vol]0.4 mg/dL0.2-1.0[facility] HospitalCalcium [Mass/Vol]9.5 mg/dL 8.5-10.1FWooster Community HospitalChloride [Moles/Vol]101 mmol/L98-107 [facility] HospitalCO2 [Moles/Vol]29.0 mmol/L21.0-32.0[facility] HospitalCobalamin (Vitamin B12) [Mass/Vol]491 pg/pE864-4394 [facility] HospitalComment on above:Performed at: - [facility] [address] [id number] Director: Jerad Medina PhD, Phone: [phone] [Mass/Vol]1.58 mg/dLHigh0.55-1.02[facility] HospitalFerritin [Mass/Vol]45.0 ng/mL8.0-252.0[facility] HospitalGFR/1.73 sq M.predicted MDRD (S/P/Bld) [Vol rate/Area]39 mL/min/{1.73_m2} Low>=60 mL/min/1.73m 2FWooster Community HospitalGlucose [Mass/Vol]89 mg/gD30-415XkmxglwgkShelby Memorial HospitalPotassium [Moles/Vol]4.5 mmol/L 3.5-5.1FWooster Community HospitalProtein [Mass/Vol]7.2 g/dL6.4-8.2 [facility] Hospitalodium [Moles/Vol]139 mmol/G481-266LquifnbwbShelby Memorial HospitalTSH Qn3.165 m[IU]/L0.358-3.740S[facility] HospitalUrea nitrogen [Mass/Vol]44.0 mg/dLHigh7.0-18.0[facility] HospitalUrea nitrogen/Creatinine [Mass ratio]27.8 mg/mgShelby Memorial HospitalLaboratory - Hematology and Cell countson 93-13-4021Ikyvxrwv granulocytes/100 WBC (Bld)0.2 %0.0-0.5FWooster Community Hospital Leukocytes [#/volume] corrected for nucleated erythrocytes in Blood by Automated counon 66-80-2281YPO corrected for nucl RBC Auto (Bld) [#/Vol]Leukocytes [#/volume] corrected for nucleated erythrocytes in Blood by Automated coun 4.0-11.0[facility] HospitalWBC corrected for nucl RBC Auto (Bld) [#/Vol]6.1 10 3/uL4.0-11.0[facility] HospitalLymphocytes Auto (Bld) [#/Vol]on 10-61-7447Vfkveozezjd (Bld) [#/Vol]Lymphocytes [#/volume] in Blood by Automated count1.2-3.8[facility] HospitalLymphocytes (Bld) [#/Vol]1.5 10 3/uL1.2-3.8[facility] HospitalLymphocytes/100 WBC Auto (Bld)on 65-41-0090Hkllyzdzsah/100 WBC (Bld)Lymphocytes/100 leukocytes in Blood by Automated count20.5-60.0[facility] Lymphocytes/100 WBC (Bld)24.5 %20.5-60.0[facility] Auto (RBC) [Entitic mass]on 79-24-8377MNK (RBC) [Entitic mass]MCH [Entitic mass] by Automated count26.7-34.0[facility] (RBC) [Entitic mass]27.2 pg26.7-34.0[facility] HospitalHC Auto (RBC) [Mass/Vol] on 58-86-2264VAMC (RBC) [Mass/Vol]MCHC [Mass/volume] by Automated count29.9-35.2 [facility] HospitalHC (RBC) [Mass/Vol]32.7 g/dL29.9-35.2 [facility] Auto (RBC) [Entitic vol]on 75-67-2161KVQ (RBC) [Entitic vol]MCV [Entitic volume] by Automated count81.0-99.0[facility] HospitalV (RBC) [Entitic vol]83.2 fL81.0-99.0[facility] HospitalMonocytes Auto (Bld) [#/Vol]on 11-65-6986Mzcwrbixf (Bld) [#/Vol] Automated blood monocyte count0.3-0.8[facility] HospitalMonocytes (Bld) [#/Vol]0.7 10 3/uL0.3-0.8[facility] HospitalMonocytes/100 WBC Auto (Bld)on 92-52-2831Ltclinsaf/100 WBC (Bld)Automated monocyte %1.7-12.0 [facility] HospitalMonocytes/100 WBC (Bld)11.7 %1.7-12.0[facility] HospitalNeutrophils Auto (Bld) [#/Vol]on 15-59-2473Atjmxlmkojz (Bld) [#/Vol]Neutrophils [#/volume] in Blood by Automated count1.4-6.5FWooster Community HospitalNeutrophils (Bld) [#/Vol]3.5 10 3/uL1.4-6.5FWooster Community HospitalNeutrophils/100 WBC Auto (Bld)on 09-05-2024 Neutrophils/100 WBC (Bld)Automated neutrophil %43.0-75.0[facility] HospitalNeutrophils/100 WBC (Bld)58.0 %43.0-75.0[facility] HospitalNo Panel Informationon 69-62-1616Izcsbiucyqs # (Auto)0.3 10 3/uL0.0-0.7 [facility] HospitalFolate16.50 ng/mL8.60-58.90[facility] HospitalImmature Granulocyte # (Auto)0.01 10 3/uL0.00-0.03[facility] HospitalPlatelet mean volume Auto (Bld) [Entitic vol]on 94-94-0641Fchzifgj mean volume (Bld) [Entitic vol]Platelet mean volume [Entitic volume] in Blood by Automated count9.5-13.5FWooster Community Hospital Platelet mean volume (Bld) [Entitic vol]10.2 fL9.5-13.5FWooster Community HospitalPlatelets Auto (Bld) [#/Vol]on 73-20-0667Kgwexwmqi (Bld) [#/Vol] Platelets [#/volume] in Blood by Automated agdls534-589JzertwvndShelby Memorial HospitalPlatelets (Bld) [#/Vol]333 10 3/kT717-622KgnuxnhsnShelby Memorial HospitalRBC Auto (Bld) [#/Vol]on 04-31-2268KHF (Bld) [#/Vol]Erythrocytes [#/volume] in Blood by Automated countLow4.20-5.40[facility] HospitalRBC (Bld) [#/Vol]4.04 10 6/uLLow4.20-5.40[facility] Serum or plasma albumin/globulin mass ratioon 45-10-3836Aqcwjbm/Globulin [Mass ratio]Serum or plasma albumin/globulin mass ratioShelby Memorial HospitalAlbumin/Globulin [Mass ratio]1.1 {ratio}[facility] Serum or plasma anion gap determinationon 99-93-7625Dhfms gap [Moles/Vol]Serum or plasma anion gap determinationShelby Memorial HospitalAnion gap [Moles/Vol]13.5 mmol/LFWooster Community HospitalCBC W Auto Differential panel (Bld)on 40-61-9800Ipjisbhgv (Bld) [#/Vol]0.06 10*3/uLNINFWvumedicine Barnesville Hospital Basophils/100 WBC (Bld)0.8 %[facility] HospitalDifferential cell count method Nom (Bld)AutoCleveland ClinicEosinophils (Bld) [#/Vol]0.4 10*3/uLNINFWvumedicine Barnesville HospitalEosinophils/100 WBC (Bld)5.2 %[facility] HospitalErythrocyte distribution width (RBC) [Ratio]15.7 %High11.5 - 15.0 %[facility] HospitalHematocrit (Bld) [Volume fraction]34.2 %Low36.0 - 46.0 %[facility] HospitalHemoglobin (Bld) [Mass/Vol]11.1 g/dLLow11.5 - 15.5 g/dLWvumedicine Barnesville HospitalImmature granulocytes (Bld) [#/Vol]0.03 10*3/uLNIUniversity Hospitals Parma Medical CenterImmature granulocytes/100 WBC (Bld) 0.4 %[facility] HospitalInterpretation and review of laboratory resultsAbnormal [facility] HospitalLymphocytes (Bld) [#/Vol]1.57 10*3/uLWvumedicine Barnesville Hospital Lymphocytes/100 WBC (Bld)20.4 %[facility] CenterH (RBC) [Entitic mass]27.3 pg 26.0 - 34.0 pgClevelMonticello HospitalHC (RBC) [Mass/Vol]32.5 g/dL30.5 - 36.0 g/dL [facility] CenterV (RBC) [Entitic vol]84 fL80.0 - 100.0 fLCAccess Hospital Dayton Monocytes (Bld) [#/Vol]0.75 10*3/uLNINFWvumedicine Barnesville HospitalMonocytes/100 WBC (Bld) 9.7 %[facility] HospitalNeutrophils (Bld) [#/Vol]4.9 10*3/uLWvumedicine Barnesville Hospital Neutrophils/100 WBC (Bld)63.5 %[facility] HospitalNucleated RBC (Bld) [#/Vol]NINF [facility] HospitalNucleated RBC/100 WBC (Bld) [Ratio]0 %/100 WBCWvumedicine Barnesville Hospital Platelet mean volume (Bld) [Entitic vol]9.7 fL9.0 - 12.7 fLClevelFirelands Regional Medical Center South Campus Platelets (Bld) [#/Vol]328 10*3/[facility] HospitalRBC (Bld) [#/Vol]4.07 10*6/uL 3.90 - 5.20 m/[facility] HospitalWBC (Bld) [#/Vol]7.71 10*3/[facility] ClinicBasophils (Bld) [#/Vol]0.06 10*3/uLNormal<0.11CSouthern [facility] Center on above:Order Comment: Specimen Type: BLOOD SPECIMEN Ordering Facility: [facility] Address: [address], [place] [address]Performed By: #### 10899-4 #### [facility] CLIA [id number] [address] [place] [address] [id number]/100 WBC (Bld)0.8 %NormalMer[facility] Health [facility] Comment on above:Order Comment: Specimen Type: BLOOD SPECIMEN Ordering Facility: [facility] Address: [address] [place], [place] [address]Performed By: #### 96460-7 #### [facility] CLIA [id number] [address] [place] [address] [id number] cell count method Nom (Bld)AutoNormalCSouthern [facility] Medical Center on above:Order Comment: Specimen Type: BLOOD SPECIMEN Ordering Facility: [facility] Address: [address] [place], [place] [address]Performed By: #### [id number] #### [facility] CLIA [id number] [address] [place], [place] [address]Mkfnxlshckk (Bld) [#/Vol]0.40 10*3/uLNormal<0.46[facility] on above:Order Comment: Specimen Type: BLOOD SPECIMEN Ordering Facility: [facility] Address: [address], [place] [address]Performed By: #### [id number] #### [facility] CLIA [id number] [address] [facility] [place], [place] [address]Gwbcldjocty/100 WBC (Bld)5.2 %NormalMercy Health Clermont Hospital Comment on above:Order Comment: Specimen Type: BLOOD SPECIMEN Ordering Facility: [facility] Address: [address] [place], [place] [address]Performed By: #### 57409-0 #### [facility] CLIA [id number] [address] [place], [place] [address]Cydsdbjbtwz distribution width (RBC) [Ratio]15.7 %High 11.5-15.0[facility] on above:Order Comment: Specimen Type: BLOOD SPECIMEN Ordering Facility: [facility] Address: [address] [place], [place] [address]Performed By: #### 98245-5 #### [facility] CLIA [id number] [address] [place] [address]4735Qrzwgovqqg (Bld) [Volume fraction]34.2 %Low36.0-46.0[facility] on above:Order Comment: Specimen Type: BLOOD SPECIMEN Ordering Facility: [facility] Address: [address] [place], [place] [address]Performed By: #### 05868-0 #### [facility] CLIA [id number] [address] [place] [address] 46224Nshkzoempt (Bld) [Mass/Vol]11.1 g/dLLow11.5-15.5CS[facility] on above:Order Comment: Specimen Type: BLOOD SPECIMEN Ordering Facility: [facility] Address: [address] [place], [place] [address]Performed By: #### 60751-9 #### [facility] CLIA [id number] [address] [place] [address] 605[address]Arifpzph granulocytes (Bld) [#/Vol]0.03 10*3/uLNormal<0.10 [facility] on above:Order Comment: Specimen Type: BLOOD SPECIMEN Ordering Facility: [facility] Address: [address] [place], [place] [address]Performed By: #### 78031-4 #### [facility] CLIA [id number] [address] [place], [place] [address]Rsiepgee granulocytes/100 WBC (Bld)0.4 %NormalOhioHealth Van Wert Hospital on above:Order Comment: Specimen Type: BLOOD SPECIMEN Ordering Facility: [facility] Address: [address] [place], [place] [address]Performed By: #### 29112-9 #### [facility] CLIA [id number] [address] [place] [address] 09878Uvcoadadywz (Bld) [#/Vol]1.57 10*3/uLNormal1.00-4.00[facility] on above:Order Comment: Specimen Type: BLOOD SPECIMEN Ordering Facility: [facility] Address: [address] [place], [place] [address]Performed By: #### 15844-7 #### [facility] CLIA [id number] [address] [place] [address] 63053Bpsroozxqvt/100 WBC (Bld)20.4 %NormalOhioHealth Van Wert Hospital on above:Order Comment: Specimen Type: BLOOD SPECIMEN Ordering Facility: [facility] Address: [address] [place], [place] [address]Performed By: #### 63767-3 #### [facility] CLIA [id number] [address] [place] [address] 35201ZGK (RBC) [Entitic mass]27.3 ztLexywg63.0-34.0[facility] on above:Order Comment: Specimen Type: BLOOD SPECIMEN Ordering Facility: [facility] Address: [address] [place], [place] [address]Performed By: #### 29870-5 #### [facility] CLIA [id number] [address] [place], [place] [address]OEMR (RBC) [Mass/Vol]32.5 g/rIMjuhgk20.5-36.0[facility] on above:Order Comment: Specimen Type: BLOOD SPECIMEN Ordering Facility: [facility] Address: [address] [place], [place] [address]Performed By: #### 16663-7 #### [facility] CLIA [id number] [address] [place] [address] 90112YLZ (RBC) [Entitic vol]84.0 kYRxmwhu64.0-100.0[facility] on above:Order Comment: Specimen Type: BLOOD SPECIMEN Ordering Facility: [facility] Address: [address] [place], [place] [address]Performed By: #### 56252-2 #### [facility] CLIA [id number] [address] [place] [address] 671[address]Snkrwbwlm (Bld) [#/Vol]0.75 10*3/uLNormal<0.87[facility] on above:Order Comment: Specimen Type: BLOOD SPECIMEN Ordering Facility: [facility] Address: [address] [place], [place] [address]Performed By: #### 67812-4 #### [facility] CLIA [id number] [address] [place] [address] 58648Gdsuopzhu/100 WBC (Bld)9.7 %NormalMercy Health Clermont Hospital Comment on above:Order Comment: Specimen Type: BLOOD SPECIMEN Ordering Facility: [facility] Address: [address] [place], [place] [address]Performed By: #### 26032-1 #### [facility] CLIA [id number] [address] [place] [address] 68294Qwnmnkpqtbz (Bld) [#/Vol]4.90 10*3/uLNormal1.45-7.50[facility] on above:Order Comment: Specimen Type: BLOOD SPECIMEN Ordering Facility: [facility] Address: [address] [place], [place] [address]Performed By: #### 34750-9 #### [facility] CLIA [id number] [address] [place], [place] [address]Ltkzfuddpsy/100 WBC (Bld)63.5 %NormalOhioHealth Van Wert Hospital on above:Order Comment: Specimen Type: BLOOD SPECIMEN Ordering Facility: [facility] Address: [address] [place], [place] [address]Performed By: #### 02522-0 #### [facility] CLIA [id number] [address] [place], [place] [address]Rkeekoydw RBC (Bld) [#/Vol]10*3/uLNormal<0.01[facility] on above:Order Comment: Specimen Type: BLOOD SPECIMEN Ordering Facility: [facility] Address: [address] [place], [place] [address]Performed By: #### 54954-1 #### [facility] CLIA [id number] [address] [place] [address]Sacobjctg RBC/100 WBC (Bld) [Ratio]0.0 /100 WBCNormalCSouthern [facility] Medical Center on above:Order Comment: Specimen Type: BLOOD SPECIMEN Ordering Facility: [facility] Address: [address] [place], [place] [address]Performed By: #### 87741-3 #### [facility] CLIA [id number] [address] [place] [address] 32[address]Ncfsrsve mean volume (Bld) [Entitic vol]9.7 fLNormal9.0-12.7 [facility] on above:Order Comment: Specimen Type: BLOOD SPECIMEN Ordering Facility: [facility] Address: [address] [place], [place] [address]Performed By: #### 15073-5 #### [facility] CLIA [id number] [address] [place] [address] 36846Vxfhxufgp (Bld) [#/Vol]328 10*3/wZCehakt645-449ZmvimzrjdOhioHealth Van Wert Hospital on above:Order Comment: Specimen Type: BLOOD SPECIMEN Ordering Facility: [facility] Address: [address] [place], [place] [address]Bjhxlnsfb By: #### 84529-9 #### [facility] CLIA [id number] [address] [place], [place] [address]TVG (Bld) [#/Vol]4.07 10*6/uLNormal3.90-5.20[facility] on above:Order Comment: Specimen Type: BLOOD SPECIMEN Ordering Facility: [facility] Address: [address] [place] [address]Qlhxdiezi By: #### 00438-1 #### [facility] CLIA [id number] [address] [place], [place] [address]KPA (Bld) [#/Vol]7.71 10*3/uLNormal3.70-11.00[facility] on above:Order Comment: Specimen Type: BLOOD SPECIMEN Ordering Facility: [facility] Address: [address] [place] [address]Obuhoqdyr By: #### 02446-0 #### [facility] CLIA [id number] [address] [place], [place] [address]VHALKYkm 31-12-0730TZELJWNtdjq (SP) Office (HEMASA) BRAYDENRENUKA Dey ([id number]) 1950 F Date Time Provider Department 08/21/24 11:20 AM JCAOB MERCADO During your visit today, we recorded [...] without masses or skin (more content not included)...NormalMercy Health – The Jewish Hospitalprehencarolinaeast medical center metabolic 2000 panelOrdered By: Marianela Chavarria on 54-89-4683Apjwqpv [Mass/Vol]4.1 g/dL3.9 - 4.9 g/dLDunkirk ClinicALP [Catalytic activity/Vol]84 U/L34 - 123 U/LCleveland ClinicALT [Catalytic activity/Vol]11 U/L7 - 38 U/LCleveland ClinicAnion gap [Moles/Vol]12 mmol/L8 - 15 mmol/L [facility] ClinicAST [Catalytic activity/Vol]20 U/L13 - 35 U/LC[facility] Clinic Bilirubin [Mass/Vol]0.4 mg/dL0.2 - 1.3 mg/dLDunkirk ClinicCalcium [Mass/Vol] 10.1 mg/dL8.5 - 10.2 mg/dLDunkirk ClinicChloride [Moles/Vol]104 mmol/L98 - 107 mmol/LCleveland ClinicCO2 [Moles/Vol]25 mmol/L22 - 30 mmol/LCleveland Clinic Creatinine [Mass/Vol]1.33 mg/dLHigh0.58 - 0.96 mg/dLWvumedicine Barnesville HospitalGFR/1.73 sq M.predicted among non-blacks MDRD (S/P/Bld) [...] eGFRmay not accurately reflect actual GFR.Glucose [Mass/Vol]104 mg/wYIhdg48 - 99 mg/dLWvumedicine Barnesville Hospital Comment on above:The [place] Diabetes Association (ADA) provides guidance for cutoff [...] Standards of Medical Care in Diabetes 2016, [place] [employer] Association. Diabetes Care. 2016.39(Suppl 1). Interpretation and review of laboratory resultsAbnormalCleveland ClinicPotassium [Moles/Vol]4.8 mmol/L3.7 - 5.1 mmol/LCregency hospital cleveland east ClinicProtein [Mass/Vol]6.9 g/dL 6.3 - 8.0 g/dLDunkirk ClinicSodium [Moles/Vol]141 mmol/L136 - 144 mmol/L [facility] Barnesville HospitalUrea nitrogen [Mass/Vol]61 mg/dLHigh7 - 21 mg/dLKettering Health Main Campusprehensive metabolic 2000 panelon 31-48-2379Aznzxvj [Mass/Vol]4.1 g/dLNormal3.9-4.9CS[facility] on above:Order Comment: Specimen Type: BLOOD SPECIMEN Ordering Facility: [facility] Address: [address] [place], [place] [address]Performed By: #### 39659-9 #### [facility] CLIA [id number] [address] [place] [address] 504[address]VOO [Catalytic activity/Vol]84 U/NEszrzd45-701AgbpvhvvvOhioHealth Van Wert Hospital on above:Order Comment: Specimen Type: BLOOD SPECIMEN Ordering Facility: [facility] Address: [address] [place], [place] [address]Performed By: #### 37581-6 #### [facility] CLIA [id number] [address] [place] [address] 605[address]QPK [Catalytic activity/Vol]11 U/LNormal7-38[facility] on above:Order Comment: Specimen Type: BLOOD SPECIMEN Ordering Facility: [facility] Address: [address] [place], [place] [address]Performed By: #### 07286-6 #### [facility] CLIA [id number] [address] [place], [place] [address]Zvjnj gap [Moles/Vol]12 mmol/LNormal8-15[facility] on above:Order Comment: Specimen Type: BLOOD SPECIMEN Ordering Facility: [facility] Address: [address] [place], [place] [address]Performed By: #### 24568-7 #### [facility] CLIA [id number] [address] [place], [place] [address]AJJ [Catalytic activity/Vol]20 U/TDwsrrv40-05EdhbmvwewOhioHealth Van Wert Hospital on above:Order Comment: Specimen Type: BLOOD SPECIMEN Ordering Facility: [facility] Address: [address] [place], [place] [address]Performed By: #### 98630-6 #### [facility] CLIA [id number] [address] [place], [place] [address]Ihqpeybqb [Mass/Vol]0.4 mg/dLNormal0.2-1.3CSouthern [facility] on above:Order Comment: Specimen Type: BLOOD SPECIMEN Ordering Facility: [facility] Address: [address] [place], [place] [address]Performed By: #### 93315-1 #### [facility] CLIA [id number] [address] [place], [place] [address]Mngpdye [Mass/Vol]10.1 mg/dLNormal8.5-10.2CSouthern [facility] on above:Order Comment: Specimen Type: BLOOD SPECIMEN Ordering Facility: [facility] Address: [address] [place], [place] [address]Performed By: #### 40281-4 #### [facility] CLIA [id number] [address] [place], [place] [address]Nttaqoeh [Moles/Vol]104 mmol/HQjtmgs97-491DjjhdaifmOhioHealth Van Wert Hospital on above:Order Comment: Specimen Type: BLOOD SPECIMEN Ordering Facility: [facility] Address: [address] [place], [place] [address]Performed By: #### 40617-3 #### [facility] CLIA [id number] [address] [place], [place] [address]YL5 [Moles/Vol]25 mmol/QDhrorr73-95WirofzgviMercy Health Clermont Hospital Comment on above:Order Comment: Specimen Type: BLOOD SPECIMEN Ordering Facility: [facility] Address: [address] [place], [place] [address]Performed By: #### 83473-9 #### [facility] CLIA [id number] [address] [place], [place] [address]Ubldzcjexh [Mass/Vol]1.33 mg/dLHigh0.58-0.96Mer[facility] Clermont HospitalComment on above:Order Comment: Specimen Type: BLOOD SPECIMEN Ordering Facility: [facility] Address: [address] [place], [place] [address]Performed By: #### 52139-8 #### [facility] CLIA [id number] [address] [place], [place] [address]Tlyxavyooh and Glomerular filtration rate.predicted panel (S/P/Bld)42 mL/min/1.73m???Low>=60Mer[facility] Clermont HospitalComment on above: Order Comment: Specimen Type: BLOOD SPECIMEN Ordering Facility: [facility] Address: [address] [place], [place] [address]Result Comment: Estimated Glomerular Filtration Rate (eGFR) is [...] not accurately reflect actual GFR.Performed By: #### 85221-5 #### [facility] CLIA [id number] [address] [place] [address] 347[address]Ehvctmx [Mass/Vol]104 mg/jHFpsk34-28YfasxtzkqMercy Health Clermont Hospital Comment on above:Order Comment: Specimen Type: BLOOD SPECIMEN Ordering Facility: [facility] Address: [address] [place] [address]Janwcl Comment: The [place] Diabetes Association (ADA) provides guidance for cutoff [...] Standards of Medical Care in Diabetes 2016, [place] Diabetes Association. Diabetes Care. 2016.39(Suppl 1).Performed By: #### 24910-9 #### [facility] CLIA [id number] [address] [place], [place] [address]Bzyvocjrt [Moles/Vol]4.8 mmol/LNormal3.7-5.1CSouthern [facility] on above:Order Comment: Specimen Type: BLOOD SPECIMEN Ordering Facility: [facility] Address: [address] [place], [place] [address]Performed By: #### 47460-6 #### [facility] CLIA [id number] [address] [place] [address]Vvwsxly [Mass/Vol]6.9 g/dLNormal6.3-8.0[facility] on above:Order Comment: Specimen Type: BLOOD SPECIMEN Ordering Facility: [facility] Address: [address] [place], [place] [address]Performed By: #### 14038-1 #### [facility] CLIA [id number] [address] [place] [address] 17032Ibfzol [Moles/Vol]141 mmol/VSklchn825-335EveioqxadOhioHealth Van Wert Hospital on above:Order Comment: Specimen Type: BLOOD SPECIMEN Ordering Facility: [facility] Address: [address] [place], [place] [address]Performed By: #### 33334-7 #### [facility] CLIA [id number] [address] [place], [place] [address]Vhew nitrogen [Mass/Vol]61 mg/dLHigh7-21[facility] on above:Order Comment: Specimen Type: BLOOD SPECIMEN Ordering Facility: [facility] Address: [address] [place] [address]Performed By: #### 98759-1 #### [facility] CLIA [id number] [address] [place], [place] [address]M-hxy reportOrdered By: Saman Vo on 85-62-3360Iemyr reportWAYNE [facility] [address] [place] [address] XRay Report Signed Patient: Renuka Owen MR#: [id number] : 1950 Acct:[id number] Age/Sex: 73 / F ADM Date: 5 Loc: [facility] [place]: Type: [facility] Attending Dr: Emory Cole II, MD Copies to: Emory Cole MD~ Ordering Provider: Emory Cole MD Date of Service: 06/29/24 XR/XR knee LT 3V - NOT FOR ER USE: Z96.652 - Presenceof left artificial knee joint ([id number]) XR/XR pelvis 1-2V: Z96.652 - Presence of [...] COMPLICATION. Impression dictated by: Saman Vo Jr., D.ORadha06/29/2024 10:50 AM Dictation Location: [place] [address] Transcribed By: [facility] 06/29/24 1050 Dictated By: Saman Vo Jr, DO 06/29/24 1048 Signed By: 06/29/24 1050 [facility] HospitalXR [facility] 3V - NOT FOR ER USEon 66-81-1585MS knee LT 3V - NOT FOR ER USENoFrye [facility] Physician [facility] UnitBasic Metabolic Panelon 58-04-5717Kkxyp gap [Moles/Vol]12.6 mmol/LNormal6.0-15.0[facility] Physician [facility] Care UnitComment on above:Performed By: #### BMP, MG ####[place] [address] [place] [address] USACalcium [Mass/Vol]8.7 mg/dLNormal8.6-10.3The [facility] Physician GroupComment on above:Performed By: #### BMP, MG ####[address] [place] [address] USAChloride [Moles/Vol]107 mmol/JCgsifv65-164Dpw [facility] Physician [facility] Comment on above:Performed By: #### BMP, MG ####[place] [address] [place] [address] USACO2 [Moles/Vol]23.8 mmol/LNormal 21.0-31.0[facility] Physician GroupComment on above:Performed By: #### BMP, MG ####[address] [address] [place] Creatinine [Mass/Vol]1.23 mg/dLHigh0.60-1.20[facility] Physician [facility] Care UnitComment on above:Performed By: #### BMP, MG ####[address] [address] USACreatinine Clr Calc Bnwqidwo21.03NoFrye Regional Medical [facility] Physician [facility] Care UnitComment on above:Result Comment: PERFORMED BY:[address] [place], [place] [phone] MEDICAL DIRECTORLLOYD NICHOLSON M.D.Performed By: #### BMP, MG ####[address] [address] [place] Estimated GFR46.113 mL/MinNoFrye Regional Medical Center [facility] Physician [facility] Care UnitComment on above: Performed By: #### BMP, MG ####[address] [place] [address] USAGlucose [Mass/Vol]86 mg/oUBkesol71-012Uwl [facility] Physician GroupComment on above:Result Comment: Random Glucose Reference Range is dependent on time and content of last meal. Glucose of more than 200 mg/dL in a nonstressed, ambulatory subject supports the diagnosis of Diabetes Mellitus. ADA recommended reference rangePerformed By: #### BMP, MG ####[facility] [address] [place] [address] USAPotassium [Moles/Vol]3.4 mmol/LLow3.5-5.1The [facility] Physician GroupComment on above:Performed By: #### BMP, MG ####[facility] [address] [place] [address] USASodium [Moles/Vol]140 mmol/SBwettm688-267Vft [facility] Physician [facility] Care UnitComment on above:Performed By: #### BMP, MG ####[facility] [address] [place] [address] USAUrea nitrogen [Mass/Vol]29 mg/dLHigh7-25The [facility] Physician GroupComment on above:Performed By: #### BMP, MG ####[facility] [address] [place] [address] USACalcium [Mass/volume] in Serum or PlasmaOrdered By: Isaiah Mejia on 66-13-6539Tfjwmbj [Mass/Vol]Calcium [Mass/volume] in Serum or Plasma8.6-10.3FWooster Community HospitalCarbon dioxide, total [Moles/volume] in Serum or PlasmaOrdered By: Isaiah Mejia on 63-03-8626LE7 [Moles/Vol]Carbon dioxide, total [Moles/volume] in Serum or Mderjs87.0-31.0[facility] Memorial HospitalChloride [Moles/volume] in Serum or PlasmaOrdered By: Isaiah Mejia on 06-05-2024 Chloride [Moles/Vol]Chloride [Moles/volume] in Serum or Svrirf36-662LsrnwmjvcShelby Memorial HospitalCreatinine [Mass/volume] in Serum or PlasmaOrdered By: Isaiah Mejia on 17-25-3737Efodtxnquu [Mass/Vol]Creatinine [Mass/volume] in Serum or PlasmaHigh0.60-1.20S[facility] Memorial HospitalGlucose [Mass/volume] in Serum or PlasmaOrdered By: Isaiah Mejia on 39-61-8229Mwkzkek [Mass/Vol]Glucose [Mass/volume] in Serum or Mngzkr65-015IgxnmmczaShelby Memorial HospitalComment on above:ADA recommended reference rangeRandom Glucose Reference Range is dependent on time and content of last meal. Glucose of more than 200 mg/dL in a nonstressed, ambulatory subject supports the diagnosisof Diabetes Mellitus.Magnesiumon 28-89-7413Zrfrgcwhw [Mass/Vol]1.7 mg/dLLow1.9-2.7 [facility] Physician GroupComment on above:Result Comment: PERFORMED BY:[facility] [place], [place] [phone] MEDICAL DIRECTORLLOYD NICHOLSON M.D.Performed By: #### BMP, MG ####[facility] [place] [address] USAMagnesium [Mass/volume] in Serum or PlasmaOrdered By: Sherin Arellano on 68-89-6218Ljqvushlq [Mass/Vol]Magnesium [Mass/volume] in Serum or PlasmaLow 1.9-2.7FWooster Community HospitalNo Panel InformationOrdered By: Isaiah Mejia on 81-71-7065Trgzllmun GFR (CKD-EPI)46.113 mL/MinShelby Memorial HospitalPharmacy Creatinine Clearance (Chem37.03S[facility] Memorial HospitalPotassium [Moles/volume] in Serum or PlasmaOrdered By: Isaiah Mejia on 69-44-0077Qldflijxv [Moles/Vol]Potassium [Moles/volume] in Serum or PlasmaLow 3.5-5.1FNationwide Children's Hospitalerum or plasma anion gap determination Ordered By: Isaiah Mejia on 85-28-1830Yllzl gap [Moles/Vol]Serum or plasma anion gap determination6.0-15.0[facility] Memorial Hospitalodium [Moles/volume] in Serum or PlasmaOrdered By: Isaiah Mejia on 53-83-5388Zkdeic [Moles/Vol]Sodium [Moles/volume] in Serum or Sitlza510-655GoeqluhywShelby Memorial HospitalUrea nitrogen [Mass/volume] in Serum or PlasmaOrdered By: Isaiah Mejia on 77-49-6699Wiem nitrogen [Mass/Vol]Urea nitrogen [Mass/volume] in Serum or PlasmaHigh7-25[facility] HospitalBasic Metabolic Panelon 72-58-5983Vpiqq gap [Moles/Vol]10.2 mmol/LNormal6.0-15.0[facility] Physician [facility] Care UnitComment on above:Performed By: #### BMP ####[address] [address] USACalcium [Mass/Vol]9.0 mg/dLSignificant change down8.6-10.3[facility] Physician [facility] Care UnitComment on above:Performed By: #### BMP ####[address] [address] USAChloride [Moles/Vol]110 mmol/XXfia60-987Fpy [facility] Physician [facility] Care UnitComment on above:Performed By: #### BMP ####[address] [address] USACO2 [Moles/Vol]24.6 mmol/ONspiuw40.0-31.0[facility] Physician [facility] Care UnitComment on above:Performed By: #### BMP ####[address] [address] USACreatinine [Mass/Vol] 1.21 mg/dLHigh0.60-1.20[facility] Physician [facility] Care UnitComment on above:Performed By: #### BMP ####[address] [address] USACreatinine Clr Calc Epuajgtd88.46NormalThValor Health Physician [facility] Comment on above:Result Comment: PERFORMED BY:[place] [address] [place], [place] [phone] MEDICAL DIRECTORLLOYD NICHOLSON M.D.Performed By: #### BMP ####[address] [address] USAEstimated GFR47.029 mL/Min NormalThe [facility] Physician GroupComment on above:Performed By: #### BMP ####[address] [address] USAGlucose [Mass/Vol]95 mg/pQPpjthx32-390Wsp [facility] Physician GroupComment on above: Result Comment: Random Glucose Reference Range is dependent on time and content of last meal. Glucose of more than 200 mg/dL in a nonstressed, ambulatory subject supports the diagnosis of Diabetes Mellitus. ADA recommended reference rangePerformed By: #### BMP ####[address] [place] [address] USAPotassium [Moles/Vol]3.8 mmol/LNormal3.5-5.1The [facility] Physician GroupComment on above:Performed By: #### BMP ####[address] [address] USASodium [Moles/Vol]141 mmol/LCgsprg446-469Yzz [facility] Physician GroupComment on above:Performed By: #### BMP ####[address] [address] USAUrea nitrogen [Mass/Vol]31 mg/dLHigh7-25The [facility] Physician GroupComment on above:Performed By: #### BMP ####[address] [address] USABasic Metabolic Panelon 59-39-8973Lamsi gap [Moles/Vol]10.7 mmol/LNormal6.0-15.0The [facility] Physician GroupComment on above:Performed By: #### BMP, MG ####[address] [address] USACalcium [Mass/Vol]7.4 mg/dLLow8.6-10.3The [facility] Physician GroupComment on above:Performed By: #### BMP, MG ####[address] [address] USAChloride [Moles/Vol] 115 mmol/XPnfp83-803Vbk [facility] Physician GroupComment on above:Performed By: #### BMP, MG ####[address] [place] [address] USACO2 [Moles/Vol]21.3 mmol/EPeebcm55.0-31.0[facility] Comment on above:Performed By: #### BMP, MG ####[address] [address] USACreatinine [Mass/Vol]1.03 mg/dL Significant change down0.60-1.20The [facility] Physician GroupComment on above: Performed By: #### BMP, MG ####[address] [address] USACreatinine Clr Calc Tdfqwbti27.07NormBroward Health Imperial Point Physician [facility] Adult Care UnitComment on above:Result Comment: PERFORMED BY:[place] [address] [address] [place], [place] [phone] MEDICAL DIRECTORLLOYD NICHOLSON M.D.Performed By: #### BMP, MG ####[address] [address] USAEstimated GFR57.057 mL/MinNormBroward Health Imperial Point Physician [facility] Adult Care UnitComment on above:Performed By: #### BMP, MG ####[address] [address] USAGlucose [Mass/Vol]99 mg/mNPlqant31-295Wrm [facility] Physician GroupComment on above:Result Comment: Random Glucose Reference Range is dependent on time and content of last meal. Glucose of more than 200 mg/dL in a nonstressed, ambulatory subject supports the diagnosis of Diabetes Mellitus. ADA recommended reference rangePerformed By: #### BMP, MG ####[address] [address] USAPotassium [Moles/Vol]3.0 mmol/LLow3.5-5.1The [facility] Physician GroupComment on above:Performed By: #### BMP, MG ####[address] [address] USASodium [Moles/Vol]144 mmol/AUzsmpo706-468Pzf [facility] Physician GroupComment on above: Performed By: #### BMP, MG ####[place] [address] USAUrea nitrogen [Mass/Vol]42 mg/dLSignificant change up [facility] Physician GroupComment on above:Performed By: #### BMP, MG ####[place] [address] [place] Basophils Auto (Bld) [#/Vol]Ordered By: Isaiah Mejia on 48-19-0265Xuvxcswgn (Bld) [#/Vol]Automated basophil count0.0-0.2FWooster Community Hospital Basophils/100 WBC Auto (Bld)Ordered By: Isaiah Mejia on 06-03-2024 Basophils/100 WBC (Bld)Automated basophil %.[facility] Complete Blood Count Auto Diffon 50-85-4926Nkjnqcjhu (Bld) [#/Vol]0.1 10*3/uL Normal0.0-0.2The [facility] Physician GroupComment on above:Result Comment: PERFORMED BY:[address] [place]KGaloPITTS[place], [place] [phone] MEDICAL DIRECTORLLOYD NICHOLSON M.D. Performed By: #### CBC ####[place] [id number] USABasophils/100 WBC (Bld)1.0 %Normal.The [facility] Physician GroupComment on above:Performed By: #### CBC ####[place] [id number] USAEosinophils (Bld) [#/Vol]0.3 10*3/uLNormal0.0-0.45The [facility] Physician GroupComment on above:Performed By: #### CBC ####[place] [id number] USAEosinophils/100 WBC (Bld)4.2 %Normal.The [facility] Physician GroupComment on above:Performed By: #### CBC ####[place] [id number] USAErythrocyte distribution width (RBC) [Ratio]14.0 % Mwkilj83.9-15.3The [facility] Physician GroupComment on above:Performed By: #### CBC ####[address] Hematocrit (Bld) [Volume fraction]27.8 %Low34.0-46.4The [facility] Physician GroupComment on above:Performed By: #### CBC ####[place] [address] USAHemoglobin (Bld) [Mass/Vol]9.2 g/dLLow 11.8-15.4The [facility] Physician GroupComment on above:Performed By: #### CBC ####[address] Lymphocytes (Bld) [#/Vol]0.9 10*3/uLLow1.00-4.8[facility] Comment on above:Performed By: #### CBC ####[place] [address] USALymphocytes/100 WBC (Bld)12.0 %Normal.The [facility] Physician GroupComment on above:Performed By: #### CBC ####[address] StreetMCH (RBC) [Entitic mass]28.9 ahGmukxn46.7-34.3The [facility] Physician GroupComment on above: Performed By: #### CBC ####[address] StreetMCV (RBC) [Entitic vol]87.1 gKZxcojx58-109Bnn [facility] Physician [facility] Care UnitComment on above:Performed By: #### CBC ####[place] [address] USAMean Corpuscular HGB Conc33.2 g/uGVgturh58.0-35.0The [facility] Physician GroupComment on above: Performed By: #### CBC ####[place] [address] USAMonocytes (Bld) [#/Vol]0.7 10*3/uLNormal0.0-0.8The [facility] Physician GroupComment on above:Performed By: #### CBC ####[place] [id number] USAMonocytes/100 WBC (Bld)9.8 %Normal.The [facility] Physician GroupComment on above:Performed By: #### CBC ####[place] [address] USANeutrophils (Bld) [#/Vol]5.5 10*3/uLNormal1.8-7.7The [facility] Physician GroupComment on above:Performed By: #### CBC ####[place] [address] USANeutrophils/100 WBC (Bld)73.0 %Normal. The [facility] Physician GroupComment on above:Performed By: #### CBC ####[place] [address] USANRBC% 0.1 /100{WBC}Normal0-0.5The [facility] Physician GroupComment on above:Performed By: #### CBC ####[place] [address] USAPlatelet mean volume (Bld) [Entitic vol]8.4 fLNormal6.3-10.7The [facility] Physician GroupComment on above:Performed By: #### CBC ####[place] [address] USAPlatelets (Bld) [#/Vol]226 10*3/kULlwcsd310-810Hbj [facility] Physician GroupComment on above: Performed By: #### CBC ####[place] [address] USARBC (Bld) [#/Vol]3.19 10*6/uLLow3.60-5.00The [facility] Physician GroupComment on above:Performed By: #### CBC ####[place] [address] USAWBC (Bld) [#/Vol]7.5 10*3/uLNormal3.8-11.6The [facility] Physician GroupComment on above:Performed By: #### CBC ####[facility] [address] [place] [address] USAEosinophils Auto (Bld) [#/Vol]Ordered By: Isaiah Mejia on 06-03-2024 Eosinophils (Bld) [#/Vol]Automated eosinophil count0.0-0.45[facility] HospitalEosinophils/100 WBC Auto (Bld)Ordered By: Isaiah Mejia on 39-10-9553Eueaaisxgpl/100 WBC (Bld)Automated eosinophil %.[facility] HospitalErythrocyte distribution width Auto (RBC) [Ratio]Ordered By: Isaiah Mejia on 93-74-4788Orkniyvkfpo distribution width (RBC) [Ratio] Erythrocyte distribution width [Ratio] by Automated count11.9-15.3FWooster Community HospitalHematocrit Auto (Bld) [Volume fraction]Ordered By: Isaiah Mejia on 74-58-3848Lkxpwuofwt (Bld) [Volume fraction]Hematocrit [Volume Fraction] of Blood by Automated ysomcInb23.0-46.4FWooster Community HospitalHemoglobin [Mass/volume] in BloodOrdered By: Isaiah Mejia on 06-03-2024 Hemoglobin (Bld) [Mass/Vol]Hemoglobin [Mass/volume] in LpccrWta21.8-15.4 [facility] HospitalLeukocytes [#/volume] corrected for nucleated erythrocytes in Blood by Automated counOrdered By: Isaiah Mejia on 06-03-2024 WBC corrected for nucl RBC Auto (Bld) [#/Vol]Leukocytes [#/volume] corrected for nucleated erythrocytes in Blood by Automated coun3.8-11.6FWooster Community HospitalLymphocytes Auto (Bld) [#/Vol]Ordered By: Isaiah Mejia on 55-08-0101Ovizxelqpvo (Bld) [#/Vol]Lymphocytes [#/volume] in Blood by Automated countLow1.00-4.8[facility] HospitalLymphocytes/100 WBC Auto (Bld) Ordered By: Isaiah Mejia on 54-09-4212Naswypotzsq/100 WBC (Bld)Lymphocytes/100 leukocytes in Blood by Automated count.[facility] HospitalH Auto (RBC) [Entitic mass]Ordered By: Isaiah Mejia on 99-21-6318ZGL (RBC) [Entitic mass]MCH [Entitic mass] by Automated count24.7-34.3FWooster Community HospitalMCHC Auto (RBC) [Mass/Vol]Ordered By: Isaiah Mejia on 06-03-2024 MCHC (RBC) [Mass/Vol]MCHC [Mass/volume] by Automated count32.0-35.0[facility] HospitalV Auto (RBC) [Entitic vol]Ordered By: Isaiah Mejia on 70-94-0622CQA (RBC) [Entitic vol]MCV [Entitic volume] by Automated brvod61-786 [facility] HospitalMagnesiumon 05-42-3849Susczdtld [Mass/Vol]1.9 mg/dLSignificant change down1.9-2.7The [facility] Physician GroupComment on above:Result Comment: PERFORMED BY:[facility]111AD[facility] MEDICAL CENTERCHRISTINE BROOKSBLUE SPR[place], [place] [phone] MEDICAL DIRECTORLLOYD YANEZ M.D.Performed By: #### BMP, MG ####[facility] [place] [address] USAMonocytes Auto (Bld) [#/Vol]Ordered By: Isaiah Mejia on 61-25-9704Gljzafjvh (Bld) [#/Vol]Automated blood monocyte count0.0-0.8[facility] HospitalMonocytes/100 WBC Auto (Bld)Ordered By: Isaiah Mejia on 11-52-6480Ywksmbwqq/100 WBC (Bld)Automated monocyte %. [facility] HospitalNeutrophils Auto (Bld) [#/Vol]Ordered By: Isaiah Mejia on 94-17-9157Fkkescdiest (Bld) [#/Vol]Neutrophils [#/volume] in Blood by Automated count1.8-7.7FWooster Community HospitalNeutrophils/100 WBC Auto (Bld)Ordered By: Isaiah Mejia on 65-59-1796Zjrvfjmpxdh/100 WBC (Bld) Automated neutrophil %.[facility] HospitalNucleated erythrocytes [Presence] in Blood by Automated countOrdered By: Isaiah Mejia on 06-03-2024 Nucleated RBC Auto Ql (Bld)Nucleated erythrocytes [Presence] in Blood by Automated count0-0.5FWooster Community HospitalPlatelet mean volume Auto (Bld) [Entitic vol]Ordered By: Isaiah Mejia on 41-57-9295Pfamqrkb mean volume (Bld) [Entitic vol]Platelet mean volume [Entitic volume] in Blood by Automated count6.3-10.7FWooster Community HospitalPlatelets Auto (Bld) [#/Vol] Ordered By: Isaiah Mejia on 41-42-8121Jpjlvyniu (Bld) [#/Vol]Platelets [#/volume] in Blood by Automated -062RpwjzqpomShelby Memorial Hospital RBC Auto (Bld) [#/Vol]Ordered By: Isaiah Mejia on 40-85-3592ZOK (Bld) [#/Vol] Erythrocytes [#/volume] in Blood by Automated countLow3.60-5.00[facility] HospitalUS renal BIon 83-82-5561WQ renal BINormalThe [facility] Physician GroupWBC Auto (Bld) [#/Vol]Ordered By: Isaiah Mejia on 62-70-0582UNT (Bld) [#/Vol]Leukocytes [#/volume] in Blood by Automated count3.8-11.6FWooster Community HospitalB-Type Natriuretic Peptideon 86-35-0793Samuxsqtahm peptide B (Bld) [Mass/Vol]228.0 pg/mLHigh5-100The [facility]ician Group Comment on above:Result Comment: PERFORMED BY:[facility] [place], [place] [phone] MEDICAL DIRECTORLLOYD NICHOLSON M.D.Performed By: #### BNP, BMP, CBC ####[facility] [place] [address] USABasic Metabolic Panelon 97-45-7415Ygxej gap [Moles/Vol]11.3 mmol/LNormal6.0-15.0The [facility] Physician [facility] UnitComment on above:Performed By: #### BNP, BMP, CBC ####[place] [address] USACalcium [Mass/Vol]8.7 mg/dLSignificant change down8.6-10.3[facility] Physician [facility] Comment on above:Performed By: #### BNP, BMP, CBC ####[place] [address] USAChloride [Moles/Vol]103 mmol/LNormal 98-107The [facility] Physician [facility] Care UnitComment on above:Performed By: #### BNP, BMP, CBC ####[place] [address] [place] CO2 [Moles/Vol]28.3 mmol/KOrbkvb95.0-31.0The [facility] Physician GroupComment on above:Performed By: #### BNP, BMP, CBC ####[place] [address] USACreatinine [Mass/Vol]2.48 mg/dLSignificant change up0.60-1.20The [facility] Physician [facility] Care UnitComment on above:Performed By: #### BNP, BMP, CBC ####[place] [address] USACreatinine Clr Calc Kwypzuts03.30NoFrye [facility] Physician [facility] Comment on above:Result Comment: PERFORMED BY:[address] [place], [place] [phone] MEDICAL DIRECTORLLOYD NICHOLSON M.D.Performed By: #### BNP, BMP, CBC ####[place] [id number] [place] Estimated GFR19.878 mL/MinNoFrye Regional Medical Center [facility] Physician [facility] Care UnitComment on above: Performed By: #### BNP, BMP, CBC ####[place] [address] USAGlucose [Mass/Vol]93 mg/cFSblnia64-137Irb [facility] Physician GroupComment on above:Result Comment: Random Glucose Reference Range is dependent on time and content of last meal. Glucose of more than 200 mg/dL in a nonstressed, ambulatory subject supports the diagnosis of Diabetes Mellitus. ADA recommended reference rangePerformed By: #### BNP, BMP, CBC ####[place] [address] USAPotassium [Moles/Vol] 3.6 mmol/LNormal3.5-5.1The [facility] Physician GroupComment on above:Performed By: #### BNP, BMP, CBC ####[place] [address] USASodium [Moles/Vol]139 mmol/FQausqh046-297Xss [facility] Physician GroupComment on above:Performed By: #### BNP, BMP, CBC ####[place] [address] USAUrea nitrogen [Mass/Vol]94 mg/dLHigh7-25The [facility] Physician GroupComment on above:Performed By: #### BNP, BMP, CBC ####[address] [address] USAComplete Blood Count Auto Diffon 06-02-2024 Basophils (Bld) [#/Vol]0.0 10*3/uLNormal0.0-0.2The [facility] Comment on above:Result Comment: PERFORMED BY:[address] [place], [place] [phone] MEDICAL DIRECTORLLOYD NICHOLSON M.D.Performed By: #### BNP, BMP, CBC ####[place] [id number] [place] Basophils/100 WBC (Bld)0.9 %Normal.The [facility] Physician GroupComment on above:Performed By: #### BNP, BMP, CBC ####[address] [address] USAEosinophils (Bld) [#/Vol]0.4 10*3/uLNormal 0.0-0.45The [facility] Physician GroupComment on above:Performed By: #### BNP, BMP, CBC ####[place] [address] USAEosinophils/100 WBC (Bld)6.2 %Normal.The [facility] Physician GroupComment on above:Performed By: #### BNP, BMP, CBC ####[place] [address] USAErythrocyte distribution width (RBC) [Ratio] 14.0 %Bigxuj67.9-15.3The [facility] Physician GroupComment on above:Performed By: #### BNP, BMP, CBC ####[place] [address] USAHematocrit (Bld) [Volume fraction]28.1 %Low34.0-46.4The [facility] Physician GroupComment on above:Performed By: #### BNP, BMP, CBC ####[place] [address] USAHemoglobin (Bld) [Mass/Vol]9.2 g/dLLow11.8-15.4The [facility] Physician GroupComment on above: Performed By: #### BNP, BMP, CBC ####[place] [address] USALymphocytes (Bld) [#/Vol]1.2 10*3/uLNormal1.00-4.8 The [facility] Physician GroupComment on above:Performed By: #### BNP, BMP, CBC ####[place] [address] [place] Lymphocytes/100 WBC (Bld)20.3 %Normal.The [facility] Physician GroupComment on above:Performed By: #### BNP, BMP, CBC ####[place] [address] USAMCH (RBC) [Entitic mass]28.0 jbUvhltu46.7-34.3 The [facility] Physician GroupComment on above:Performed By: #### BNP, BMP, CBC ####[place] [id number] USAMCV (RBC) [Entitic vol]85.8 lAKkcfde79-821Wqv [facility] Physician GroupComment on above:Performed By: #### BNP, BMP, CBC ####[place] [address] USAMean Corpuscular HGB Conc32.7 g/dLNormal 32.0-35.0The [facility] Physician GroupComment on above:Performed By: #### BNP, BMP, CBC ####[place] [address] USAMonocytes (Bld) [#/Vol]0.9 10*3/uLHigh0.0-0.8The [facility] Comment on above:Performed By: #### BNP, BMP, CBC ####[place] [address] USAMonocytes/100 WBC (Bld)15.4 %Normal. The [facility] Physician GroupComment on above:Performed By: #### BNP, BMP, CBC ####[place] [address] [place] Neutrophils (Bld) [#/Vol]3.2 10*3/uLNormal1.8-7.7The [facility] Comment on above:Performed By: #### BNP, BMP, CBC ####[place] [address] USANeutrophils/100 WBC (Bld)57.2 %Normal .The [facility] Physician GroupComment on above:Performed By: #### BNP, BMP, CBC ####[place] [address] USANRBC% 0.1 /100{WBC}Normal0-0.5The [facility] Physician GroupComment on above:Performed By: #### BNP, BMP, CBC ####[place] [address] USAPlatelet mean volume (Bld) [Entitic vol]8.3 fLNormal 6.3-10.7The [facility] Physician GroupComment on above:Performed By: #### BNP, BMP, CBC ####[facility] [address] [place] [address] USAPlatelets (Bld) [#/Vol]239 10*3/qDXqwjlx334-009Pmj [facility] Comment on above:Performed By: #### BNP, BMP, CBC ####[facility] [address] [place] [address] USARBC (Bld) [#/Vol]3.28 10*6/uLLow 3.60-5.00The [facility] Physician GroupComment on above:Performed By: #### BNP, BMP, CBC ####[facility] [place] [address] USAWBC (Bld) [#/Vol]5.7 10*3/uLNormal3.8-11.6The [facility] Comment on above:Performed By: #### BNP, BMP, CBC ####[place] [address] [place] [id number] USANatriuretic peptide B [Mass/Vol] Ordered By: Isaiah Mejia on 70-54-5739Cnnkmkjyjgv peptide B (Bld) [Mass/Vol] BNP ser/plasHigh5-100[facility] HospitalAlanine aminotransferase [Enzymatic activity/volume] in Serum or PlasmaOrdered By: Regina Garcia on 00-16-1845LRR [Catalytic activity/Vol]Alanine aminotransferase [Enzymatic activity/volume] in Serum or Plasma7-52[facility] HospitalAlbumin [Mass/volume] in Serum or Plasma by Bromocresol green (BCG) dye binding metho Ordered By: Regina Garcia on 42-19-9900Sdfugkc BCG dye [Mass/Vol]Albumin [Mass/volume] in Serum or Plasma by Bromocresol green (BCG) dye binding metho 3.5-5.7FWooster Community HospitalAlkaline phosphatase [Enzymatic activity/volume] in Serum or PlasmaOrdered By: Regina Garcia on 35-69-3068TEU [Catalytic activity/Vol]Alkaline phosphatase [Enzymatic activity/volume] in Serum or Xtqyjg35-419GwdxipehgShelby Memorial HospitalAppearance of UrineOrdered By: Regina Garcia on 52-71-5239Jiktbnuzfp (U)Urine appearanceClearFWooster Community HospitalAspartate aminotransferase [Enzymatic activity/volume] in Serum or PlasmaOrdered By: Regina Garcia on 30-20-5495KNJ [Catalytic activity/Vol]Aspartate aminotransferase [Enzymatic activity/volume] in Serum or Yhrlmq63-73OrayspsmgShelby Memorial HospitalBasophils Auto (Bld) [#/Vol]Ordered By: Regina Garcia on 98-92-1707Giphhfpkm (Bld) [#/Vol]Automated basophil count 0.0-0.2FWooster Community HospitalBasophils/100 WBC Auto (Bld)Ordered By: Regina Garcia on 16-06-8013Fvgoqesso/100 WBC (Bld)Automated basophil %. [facility] HospitalBilirubin Test strip Ql (U)Ordered By: Regina Garcia on 79-80-5563Bzqxhqsts Ql (U)Bilirubin.total [Presence] in Urine by Test stripNegativeShelby Memorial HospitalBilirubin.total [Mass/volume] in Serum or PlasmaOrdered By: Regina Garcia on 06-01-2024 Bilirubin [Mass/Vol]Bilirubin.total [Mass/volume] in Serum or Plasma0.3-1.0 [facility] HospitalCT head/brain wo conon 23-43-0682WT head/brain wo conNormalThe [facility] Physician GroupCalcium [Mass/volume] in Serum or PlasmaOrdered By: Regina Garcia on 92-63-7736Ivrrniy [Mass/Vol]Calcium [Mass/volume] in Serum or Plasma8.6-10.3FWooster Community HospitalCarbon dioxide, total [Moles/volume] in Serum or PlasmaOrdered By: Regina Garcia on 97-21-8416CT5 [Moles/Vol]Carbon dioxide, total [Moles/volume] in Serum or Plasma High21.0-31.0[facility] HospitalChloride [Moles/volume] in Serum or PlasmaOrdered By: Regina Garcia on 59-44-1089Ohxuotfi [Moles/Vol]Chloride [Moles/volume] in Serum or NtpaveWix37-705AumetrbgvShelby Memorial HospitalColor Auto (U)Ordered By: Regina Garcia on 35-45-5349Zisux (U)Color of Urine by AutoYellowShelby Memorial HospitalComplete Blood Count Auto Diffon 61-07-2989Hwmcoickd (Bld) [#/Vol]0.0 10*3/uLNormal0.0-0.2The [facility] Physician GroupComment on above:Result Comment: PERFORMED BY:[address] [place], [place] [phone] MEDICAL DIRECTORLLOYD NICHOLSON M.D.Performed By: #### CMP, PT, HS TROP, PTT, TSH3, CBC, MG ####[place] [id number] USABasophils/100 WBC (Bld)0.5 %Normal.The [facility] Physician GroupComment on above:Performed By: #### CMP, PT, HS TROP, PTT, TSH3, CBC, MG ####[address] [address] USAEosinophils (Bld) [#/Vol]0.2 10*3/uLNormal0.0-0.45The [facility] Physician GroupComment on above: Performed By: #### CMP, PT, HS TROP, PTT, TSH3, CBC, MG ####[address] [address] USAEosinophils/100 WBC (Bld)2.3 % Normal.The [facility] Physician GroupComment on above:Performed By: #### CMP, PT, HS TROP, PTT, TSH3, CBC, MG ####[address] [address] USAErythrocyte distribution width (RBC) [Ratio]14.2 % Wcfydq47.9-15.3The [facility] Physician GroupComment on above:Performed By: #### CMP, PT, HS TROP, PTT, TSH3, CBC, MG ####[address] [address] USAHematocrit (Bld) [Volume fraction]31.8 %Low 34.0-46.4The [facility] Physician GroupComment on above:Performed By: #### CMP, PT, HS TROP, PTT, TSH3, CBC, MG ####[place] [address] USAHemoglobin (Bld) [Mass/Vol]10.5 g/dLLow11.8-15.4The [facility] Physician GroupComment on above:Performed By: #### CMP, PT, HS TROP, PTT, TSH3, CBC, MG ####[place] [address] USALymphocytes (Bld) [#/Vol]1.0 10*3/uLNormal1.00-4.8The [facility] Physician GroupComment on above:Performed By: #### CMP, PT, HS TROP, PTT, TSH3, CBC, MG ####[place] [address] USALymphocytes/100 WBC (Bld)10.3 %Normal.The [facility] Physician GroupComment on above:Performed By: #### CMP, PT, HS TROP, PTT, TSH3, CBC, MG ####[address]H (RBC) [Entitic mass]28.1 efFwdmfc67.7-34.3The [facility] Physician GroupComment on above: Performed By: #### CMP, PT, HS TROP, PTT, TSH3, CBC, MG ####[address]V (RBC) [Entitic vol]85.4 fL Vluajm39-318Sot [facility] Physician GroupComment on above:Performed By: #### CMP, PT, HS TROP, PTT, TSH3, CBC, MG ####[place] [address] USAMean Corpuscular HGB Conc33.0 g/dLNormal 32.0-35.0The [facility] Physician GroupComment on above:Performed By: #### CMP, PT, HS TROP, PTT, TSH3, CBC, MG ####[address] [place] [address] USAMonocytes (Bld) [#/Vol]0.7 10*3/uLNormal0.0-0.8The [facility] Physician GroupComment on above:Performed By: #### CMP, PT, HS TROP, PTT, TSH3, CBC, MG ####[place] [address] USAMonocytes/100 WBC (Bld)16.46 %Normal0.00-20.00The [facility] Physician GroupComment on above:Performed By: #### CMP, PT, HS TROP, PTT, TSH3, CBC, MG ####[place] [address] USAMonocytes/100 WBC (Bld)7.2 %Normal.The [facility] Physician GroupComment on above:Performed By: #### CMP, PT, HS TROP, PTT, TSH3, CBC, MG ####[place] [address] USANeutrophils (Bld) [#/Vol]7.5 10*3/uLNormal1.8-7.7The [facility] Physician GroupComment on above: Performed By: #### CMP, PT, HS TROP, PTT, TSH3, CBC, MG ####[place] [address] USANeutrophils/100 WBC (Bld)79.7 %Normal.The [facility] Physician GroupComment on above:Performed By: #### CMP, PT, HS TROP, PTT, TSH3, CBC, MG ####[place] [address] USANRBC%0.1 /100{WBC}Normal0-0.5The [facility] Physician GroupComment on above:Performed By: #### CMP, PT, HS TROP, PTT, TSH3, CBC, MG ####[place] [id number] [place] Platelet mean volume (Bld) [Entitic vol]8.7 fLNormal6.3-10.7The [facility] Physician GroupComment on above:Performed By: #### CMP, PT, HS TROP, PTT, TSH3, CBC, MG ####[place] [address] USAPlatelets (Bld) [#/Vol]319 10*3/yCBfmokb379-974Igj [facility] Comment on above:Performed By: #### CMP, PT, HS TROP, PTT, TSH3, CBC, MG ####[place] [address] USARBC (Bld) [#/Vol]3.72 10*6/uLNormal3.60-5.00The [facility] Physician GroupComment on above:Performed By: #### CMP, PT, HS TROP, PTT, TSH3, CBC, MG ####[place] [address] USAWBC (Bld) [#/Vol]9.4 10*3/uLNormal3.8-11.6The [facility] Physician GroupComment on above:Performed By: #### CMP, PT, HS TROP, PTT, TSH3, CBC, MG ####[address]Comprehensive Metabolic Panelon 02-16-4944Ebbkidr [Mass/Vol]4.4 g/dLNormal3.5-5.7The [facility] Comment on above:Performed By: #### CMP, PT, HS TROP, PTT, TSH3, CBC, MG ####[address] Albumin/Globulin [Mass ratio]1.5 {ratio}NormalThe [facility] Physician [facility] Comment on above:Performed By: #### CMP, PT, HS TROP, PTT, TSH3, CBC, MG ####[place] [place] [address] USAALP [Catalytic activity/Vol]53 U/AOzynhq16-763Pyt [facility] Physician GroupComment on above:Performed By: #### CMP, PT, HS TROP, PTT, TSH3, CBC, MG ####[place] [address] USAALT [Catalytic activity/Vol]16 U/LNormal7-52The [facility] Physician GroupComment on above: Performed By: #### CMP, PT, HS TROP, PTT, TSH3, CBC, MG ####[place] [address] USAAnion gap [Moles/Vol]14.8 mmol/LNormal6.0-15.0The [facility] Physician GroupComment on above:Performed By: #### CMP, PT, HS TROP, PTT, TSH3, CBC, MG ####[place] [address] USAAST [Catalytic activity/Vol]22 U/HWptulx06-22 The [facility] Physician GroupComment on above:Performed By: #### CMP, PT, HS TROP, PTT, TSH3, CBC, MG ####[place] [address] USABilirubin [Mass/Vol]0.6 mg/dLNormal0.3-1.0The [facility] Physician GroupComment on above:Performed By: #### CMP, PT, HS TROP, PTT, TSH3, CBC, MG ####[place] [address] USACalcium [Mass/Vol]10.2 mg/dLNormal8.6-10.3The [facility] Physician GroupComment on above:Performed By: #### CMP, PT, HS TROP, PTT, TSH3, CBC, MG ####[place] [address] USA Chloride [Moles/Vol]94 mmol/FRlz72-763Diw [facility] Physician GroupComment on above:Performed By: #### CMP, PT, HS TROP, PTT, TSH3, CBC, MG ####[place] [address] USACO2 [Moles/Vol]33.2 mmol/LHigh21.0-31.0The [facility] Physician GroupComment on above:Performed By: #### CMP, PT, HS TROP, PTT, TSH3, CBC, MG ####[address] [place] [address] USACreatinine [Mass/Vol]3.04 mg/dLHigh0.60-1.20 The [facility] Physician GroupComment on above:Performed By: #### CMP, PT, HS TROP, PTT, TSH3, CBC, MG ####[place] [address] USACreatinine Clr Calc Netfqmar76.91NoFrye Regional [facility] Physician GroupComment on above:Performed By: #### CMP, PT, HS TROP, PTT, TSH3, CBC, MG ####[address] [place] [address] USAEstimated GFR15.569 mL/MinHCA Florida Lawn[facility] Physician [facility] Care UnitComment on above:Performed By: #### CMP, PT, HS TROP, PTT, TSH3, CBC, MG ####[place] [address] USAGlobulin (S) [Mass/Vol]3.0 g/dLNoFrye Regional [facility] Physician GroupComment on above:Performed By: #### CMP, PT, HS TROP, PTT, TSH3, CBC, MG ####[place] [address] USAGlucose [Mass/Vol]115 mg/zNCgwk89-412 The [facility] Physician GroupComment on above:Result Comment: Random Glucose Reference Range is dependent on time and content of last meal. Glucose of more than 200 mg/dL in a nonstressed, ambulatory subject supports the diagnosis of Diabetes Mellitus. ADA recommended reference rangePerformed By: #### CMP, PT, HS TROP, PTT, TSH3, CBC, MG ####[place] [address] USAPotassium [Moles/Vol]4.0 mmol/LNormal3.5-5.1The [facility] Physician GroupComment on above:Performed By: #### CMP, PT, HS TROP, PTT, TSH3, CBC, MG ####[place] [address] USAProtein [Mass/Vol]7.4 g/dLNormal6.4-8.9The [facility] Physician [facility] Comment on above:Performed By: #### CMP, PT, HS TROP, PTT, TSH3, CBC, MG ####[facility] [place] [address] USASodium [Moles/Vol]138 mmol/HXitcbi345-432Oku [facility] Physician [facility] Care UnitComment on above: Performed By: #### CMP, PT, HS TROP, PTT, TSH3, CBC, MG ####[address] [place] [address] USAUrea nitrogen [Mass/Vol]111 mg/dLHigh7-25The [facility] Physician [facility] Care UnitComment on above:Performed By: #### CMP, PT, HS TROP, PTT, TSH3, CBC, MG ####[address] [place] [address] USACreatinine [Mass/volume] in Serum or Plasma Ordered By: Regina Garcia on 85-79-7771Pxfreajxpo [Mass/Vol]Creatinine [Mass/volume] in Serum or PlasmaHigh0.60-1.20[facility] Creatinine [Mass/volume] in UrineOrdered By: Isaiah Mejia on 06-01-2024 Creatinine (U) [Mass/Vol]Creatinine [Mass/volume] in UrineShelby Memorial HospitalComment on above:No reference range establishedCreatinine, Urine (Random)on 32-12-3440Ubfiwmepis, Urine (Random)41.00 mg/dLNoFrye [facility] Physician [facility] Care UnitComment on above:Order Comment: Comment ADD ON to today's UA Result Comment: No reference range establishedPERFORMED BY:[address] [place], [place] [phone] MEDICAL DIRECTORLLOYD NICHOLSON M.D.Performed By: #### KEVIN GIRON ####[address] [place] [address] USAECG 12 lead ECGon 62-41-0157GEL 12 lead ECGNormBroward Health Imperial Point Physician GroupEosinophils Auto (Bld) [#/Vol]Ordered By: Regina Garcia on 27-52-0798Qpqdqundrdj (Bld) [#/Vol] Automated eosinophil count0.0-0.45[facility] Eosinophils/100 WBC Auto (Bld)Ordered By: Regina Garcia on 06-01-2024 Eosinophils/100 WBC (Bld)Automated eosinophil %.[facility] HospitalErythrocyte distribution width Auto (RBC) [Ratio]Ordered By: Regina Garcia on 31-64-2978Ddwvlmliltw distribution width (RBC) [Ratio]Erythrocyte distribution width [Ratio] by Automated count11.9-15.3FWooster Community HospitalGlobulin Calc (S) [Mass/Vol]Ordered By: Regina Garcia on 06-01-2024 Globulin (S) [Mass/Vol]Serum globulin measurement by calculation (mass/volume) [facility] HospitalGlucose [Mass/volume] in Serum or PlasmaOrdered By: Regina Garcia on 66-87-4957Mmifgwu [Mass/Vol]Glucose [Mass/volume] in Serum or KjoaolSafb95-519OdtnbnekzShelby Memorial HospitalComment on above:ADA recommended reference rangeRandom Glucose Reference Range is dependent on time and content of last meal. Glucose of more than 200 mg/dL in a nonstressed, ambulatory subject supports the diagnosisof Diabetes Mellitus.Glucose [Mass/volume] in Urine by Test stripOrdered By: Regina Garcia on 06-01-2024 Glucose Test strip (U) [Mass/Vol]Glucose [Mass/volume] in Urine by Test strip NormalShelby Memorial HospitalHematocrit Auto (Bld) [Volume fraction] Ordered By: Regina Garcia on 98-04-4636Teubsrvsps (Bld) [Volume fraction] Hematocrit [Volume Fraction] of Blood by Automated idonzEdy11.0-46.4FWooster Community HospitalHemoglobin Test strip Ql (U)Ordered By: Regina Garcia on 38-65-8622Gfbpmfpwuo Ql (U)Hemoglobin [Presence] in Urine by Test strip NegativeShelby Memorial HospitalHemoglobin [Mass/volume] in Blood Ordered By: Regina Garcia on 11-63-8683Nwwdudbcdb (Bld) [Mass/Vol]Hemoglobin [Mass/volume] in JxwdiNgb38.8-15.4FWooster Community HospitalINR in Platelet poor plasma by Coagulation assayOrdered By: Regina Garcia on 87-53-2178EFO Coag (PPP) [Relative time]INR in Platelet poor plasma by Coagulation assayShelby Memorial HospitalComment on above:INR Therapeutic Range A) [...] strip Ql (U)Ordered By: Regina Garcia on 31-51-8613Vmamrgj Ql (U)Ketones [Presence] in Urine by Test stripNegSelect Medical [facility] Clinic [facility], [place] Leukocyte esterase [Presence] in Urine by Test stripOrdered By: Regina Garcia on 34-13-2926Opaqdrgwl esterase Test strip Ql (U)Leukocyte esterase [Presence] in Urine by Test stripNegSelect Medical Cleveland Clinic Rehabilitation Hospital, BeachwoodLeukocytes [#/volume] corrected for nucleated erythrocytes in Blood by Automated coun Ordered By: Regina Garcia on 31-53-7828UJM corrected for nucl RBC Auto (Bld) [#/Vol]Leukocytes [#/volume] corrected for nucleated erythrocytes in Blood by Automated coun3.8-11.6FWooster Community HospitalLymphocytes Auto (Bld) [#/Vol]Ordered By: Regina Garcia on 01-51-6691Febugcjndxr (Bld) [#/Vol] Lymphocytes [#/volume] in Blood by Automated count1.00-4.8[facility] HospitalLymphocytes/100 WBC Auto (Bld)Ordered By: Regina Garcia on 88-77-1305Zuofuvfzywx/100 WBC (Bld)Lymphocytes/100 leukocytes in Blood by Automated count.[facility] Auto (RBC) [Entitic mass] Ordered By: Regina Garcia on 79-79-0334KDL (RBC) [Entitic mass]MCH [Entitic mass] by Automated count24.7-34.3Fire[facility] Medical CenterMCHC Auto (RBC) [Mass/Vol]Ordered By: Regina Garcia on 63-15-7067JKRN (RBC) [Mass/Vol] MCHC [Mass/volume] by Automated count32.0-35.0[facility] MCV Auto (RBC) [Entitic vol]Ordered By: Regina Garcia on 29-49-8770WBD (RBC) [Entitic vol]MCV [Entitic volume] by Automated gpiwe29-027OlisrjxnzShelby Memorial HospitalMagnesiumon 62-60-5280Vljhhvbxg [Mass/Vol]3.3 mg/dLHigh1.9-2.7The [facility] Physician GroupComment on above:Performed By: #### CMP, PT, HS TROP, PTT, TSH3, CBC, MG ####[facility] [address] [place] [address] USAMagnesium [Mass/volume] in Serum or PlasmaOrdered By: Regina Garcia on 98-05-9141Kmbhvqcde [Mass/Vol]Magnesium [Mass/volume] in Serum or PlasmaHigh1.9-2.7FWooster Community HospitalMonocyte distribution width [Entitic volume] in Blood by AutomatedOrdered By: Regina Garcia on 06-01-2024 Monocyte distribution width Auto (Bld) [Entitic vol]Monocyte distribution width [Entitic volume] in Blood by Automated0.00-20.00[facility] HospitalMonocytes Auto (Bld) [#/Vol]Ordered By: Regina Garcia on 06-01-2024 Monocytes (Bld) [#/Vol]Automated blood monocyte count0.0-0.8[facility] HospitalMonocytes/100 WBC Auto (Bld)Ordered By: Regina Garcia on 94-73-2618Svwwnwybx/100 WBC (Bld)Automated monocyte %.[facility] HospitalNeutrophils Auto (Bld) [#/Vol]Ordered By: Regina Garcia on 06-01-2024 Neutrophils (Bld) [#/Vol]Neutrophils [#/volume] in Blood by Automated count 1.8-7.7FWooster Community HospitalNeutrophils/100 WBC Auto (Bld)Ordered By: Regina Garcia on 41-03-4796Dnbobhzwstt/100 WBC (Bld)Automated neutrophil % .[facility] HospitalNitrite Test strip Ql (U)Ordered By: Regina Garcia on 23-08-6677Adlqovt Ql (U)Nitrite [Presence] in Urine by Test strip NegativeShelby Memorial HospitalNo Panel InformationOrdered By: Regina Garcia on 01-76-9451Ggllmboyt GFR (CKD-EPI)15.569 mL/MinShelby Memorial HospitalPharmacy Creatinine Clearance (Chem14.91[facility] HospitalNucleated erythrocytes [Presence] in Blood by Automated countOrdered By: Regina Garcia on 44-67-1098Finqndfeg RBC Auto Ql (Bld) Nucleated erythrocytes [Presence] in Blood by Automated count0-0.5FWooster Community HospitalPartial Thromboplastin Timeon 46-90-6184nJDL Coag (Bld) [Time]29.9 mJdqcjx80.1-36.5The [facility] Physician GroupComment on above:Result Comment: A hematocrit value greater than 55% may lead to inaccurate results in coagulation testing. Patients having hematocrit values >55% require a special collection tube for coagulation studies. Please contact the laboratory at [phone] for redraw instructions.PERFORMED BY:[address] [place], [place] [phone] MEDICAL DIRECTORLLOYD NICHOLSON M.D.Performed By: #### CMP, PT, HS TROP, PTT, TSH3, CBC, MG ####[facility] [address] [place] [address] [place] [address] USAPlatelet mean volume Auto (Bld) [Entitic vol]Ordered By: Regina Garcia on 29-84-5937Oyxyzwta mean volume (Bld) [Entitic vol]Platelet mean volume [Entitic volume] in Blood by Automated count6.3-10.7FWooster Community HospitalPlatelets Auto (Bld) [#/Vol]Ordered By: Regina Garcia on 06-01-2024 Platelets (Bld) [#/Vol]Platelets [#/volume] in Blood by Automated klqij807-760 [facility] HospitalPotassium [Moles/volume] in Serum or Plasma Ordered By: Regina Garcia on 30-18-0436Kyftukyhw [Moles/Vol]Potassium [Moles/volume] in Serum or Plasma3.5-5.1FWooster Community HospitalProtein Test strip (U) [Mass/Vol]Ordered By: Regina Garcia on 89-69-7160Mxgxdsi (U) [Mass/Vol]Protein [Mass/volume] in Urine by Test stripNegativeShelby Memorial HospitalProtein [Mass/volume] in Serum or PlasmaOrdered By: Regina Garcia on 91-17-6973Vnscleo [Mass/Vol]Protein [Mass/volume] in Serum or Plasma 6.4-8.9[facility] HospitalProthrombin Time INRon 55-44-7262VNS Coag (PPP) [Relative time]0.9 {INR}NormalThe [facility] Physician GroupComment on above:Result Comment: INR Therapeutic [...] PT, HS TROP, PTT, TSH3, CBC, MG ####[facility] [address] [place] [address] USAPT Coag (PPP) [Time]10.3 sNormal9.0-12.9The [facility] Physician GroupComment on above: Result Comment: A hematocrit value greater than 55% may lead to inaccurate results in coagulation testing. Patients having hematocrit values >55% require a special collection tube for coagulation studies. Please contact the laboratory at [phone] for redraw instructions.Performed By: #### CMP, PT, HS TROP, PTT, TSH3, CBC, MG ####[facility] [address] [place] [address] USAProthrombin time (PT)Ordered By: Regina Garcia on 05-40-9053PG Coag (PPP) [Time]Prothrombin time (PT)9.0-12.9[facility] Comment on above:A hematocrit value greater than 55% may lead to inaccurate results in coagulation testing. Patientshaving hematocrit values >55% require a special collection tube for coagulation studies. Please contact the laboratory at [phone] for redraw instructions.RBC Auto (Bld) [#/Vol]Ordered By: Regina Garcia on 64-30-0164ADC (Bld) [#/Vol]Erythrocytes [#/volume] in Blood by Automated count3.60-5.00[facility] Hospitalerum or plasma albumin/globulin mass ratioOrdered By: Regina Garcia on 06-01-2024 Albumin/Globulin [Mass ratio]Serum or plasma albumin/globulin mass ratio [facility] Hospitalerum or plasma anion gap determinationOrdered By: Regina Garcia on 71-19-7733Mbfck gap [Moles/Vol]Serum or plasma anion gap determination6.0-15.0[facility] Hospitalodium [Moles/volume] in Serum or PlasmaOrdered By: Regina Garcia on 05-07-9019Ejoowp [Moles/Vol]Sodium [Moles/volume] in Serum or Vxlkdl995-169ZrldopgvmMemorial Health System Marietta Memorial Hospitalodium [Moles/volume] in UrineOrdered By: Isaiah Mejia on 42-89-4155Somvyk (U) [Moles/Vol]Sodium [Moles/volume] in UrineShelby Memorial Hospital Comment on above:No reference range establishedSodium, Urineon 63-51-4227Irbjmr (U) [Moles/Vol]60.0 mmol/LNormalThe [facility] Physician GroupComment on above: Order Comment: Comment ADD ON to today's UAResult Comment: No reference range establishedPerformed By: #### UCREA, URNA ####[facility] [address] [place] [address] [facility] SERVICE UNITSpecific gravity Test strip (U) [Rel density] Ordered By: Regina Garcia on 50-05-3261Pipleuui gravity (U) [Rel density] Specific gravity of Urine by Test strip1.001-1.030S[facility] Memorial HospitalThyroid Stimulating Hormoneon 88-85-7015LNE Qn5.13 m[IU]/LNormal0.45-5.33 The [facility] Physician GroupComment on above:Result Comment: PERFORMED BY:[address] [place], [place] [phone] MEDICAL DIRECTORLLOYD NICHOLSON M.D.Performed By: #### CMP, PT, HS TROP, PTT, TSH3, CBC, MG ####[facility] [place] [address] USAThyrotropin [Units/volume] in Serum or Plasma Ordered By: Regina Garcia on 78-69-6159TAY QnThyrotropin [Units/volume] in Serum or Plasma0.45-5.33[facility] HospitalTroponin I High Sensitivityon 65-04-1538Qtelfvkp I High Roluxgnwohp62Znmbar2-61Pvr [facility] Physician GroupComment on above:Result Comment: The Troponin units of report have been changed to meet the Chest Pain Accreditationrequirement, element EC5.M1l2. Troponin units are changed from pg/ml to ng/L. Also, the decimal is r emoved and results are in whole numbers.PERFORMED BY:[address]CHRISTINE RICKETTSRadhaHUI, [place] [phone] MEDICAL DIRECTORLLOYD NICHOLSON M.D.Performed By: #### CMP, PT, HS TROP, PTT, TSH3, CBC, MG ####[facility] [place] [address] USATroponin I.cardiac [Mass/volume] in Serum or Plasma by Detection limit <= 0.01 ng/Ordered By: Regina Garcia on 79-55-9693Lnhdqbig I.cardiac DL <= 0.01 ng/mL [Mass/Vol]Troponin I.cardiac [Mass/volume] in Serum or Plasma by Detection limit <= 0.01 ng/0-15[facility] HospitalComment on above:The Troponin units of report have been changed to meet the Chest Pain Accreditation requirement, element EC5.M1l2. Troponin units are changed from pg/ml to ng/L. Also, the decimal is removed and results are in whole numbers. Urea nitrogen [Mass/volume] in Serum or PlasmaOrdered By: Regina Garcia on 65-32-5816Vtgl nitrogen [Mass/Vol]Urea nitrogen [Mass/volume] in Serum or Plasma [address] StreetUrinalysison 38-42-8650Kvailylzsv (U) ClearNormalClearThe [facility] Physician GroupComment on above:Order Comment: Name Collection Type:: Clean-Voided MidstreamPerformed By: #### UA ####[address] [address] USABilirubin,Urine NegativeNormalNegativeSt. Joseph'S Hospital Physician GroupComment on above:Order Comment: Name Collection Type:: Clean-Voided MidstreamPerformed By: #### UA ####[address] [address] USAColor (U)Light-YellowNormalYellowSt. Joseph'S Hospital Physician GroupComment on above:Order Comment: Name Collection Type:: Clean-Voided MidstreamPerformed By: #### UA ####[address] [address] USAGlucose Ql (U)NormalNormalNormalThValor Health Physician GroupComment on above:Order Comment: Name Collection Type:: Clean-Voided MidstreamPerformed By: #### UA ####[address] [address] USAKetones Ql (U)NegativeNormalNegativeSt. Joseph'S Hospital Physician GroupComment on above:Order Comment: Name Collection Type:: Clean-Voided MidstreamPerformed By: #### UA ####[address] [address] [place] Leukocyte esterase Test strip Ql (U)NegativeNormalNegativeSt. Joseph'S Hospital Physician GroupComment on above:Order Comment: Name Collection Type:: Clean- Voided MidstreamPerformed By: #### UA ####[address] [address] USANitrite,UrineNegativeNormalNegativeSt. Joseph'S Hospital Physician GroupComment on above:Order Comment: Name Collection Type:: Clean-Voided MidstreamPerformed By: #### UA ####[address] [address] USAOccult Blood,UrineNegativeNormal NegativeThe [facility] Physician GroupComment on above:Order Comment: Name Collection Type:: Clean-Voided MidstreamResult Comment: PERFORMED BY:[address] [place] [place], [place] [phone] MEDICAL DIRECTORLLOYD NICHOLSON M.D.Performed By: #### UA ####[address] [address] USApH (U)6.5 [pH]Normal 5.0-9.0The [facility] Physician GroupComment on above:Order Comment: Name Collection Type:: Clean-Voided MidstreamPerformed By: #### UA ####[address] [address] USAProtein,UrineNegative NormalNegativeThe [facility] Physician GroupComment on above:Order Comment: Name Collection Type:: Clean-Voided MidstreamPerformed By: #### UA ####[address] [address] USASpecificy Dumf[place],Urine1.717Xaukss4.001-1.030The [facility] Physician GroupComment on above:Order Comment: Name Collection Type:: Clean-Voided MidstreamPerformed By: #### UA ####[address] [address] USAUrobilinogen,UrineNormalNormalNormalThe [facility] Physician GroupComment on above:Order Comment: Name Collection Type:: Clean-Voided MidstreamPerformed By: #### UA ####[address] [address] USAUrobilinogen Test strip (U) [Mass/Vol]Ordered By: Regina Garcia on 83-29-1692Iepvmoksfsvr (U) [Mass/Vol]Urobilinogen [Mass/volume] in Urine by Test stripUC Medical CenterWBC Auto (Bld) [#/Vol]Ordered By: Regina Garcia on 86-97-4208QDS (Bld) [#/Vol]Leukocytes [#/volume] in Blood by Automated count3.8-11.6FWooster Community HospitalX-ray reportOrdered By: Saman Vo on 21-27-8043Ymlbv reportWAYNE HEALTHCARE [facility]IN [facility] Main [place] [address] [place] [address] XRay Report Signed with Addenda Patient: Renuka Owen MR#: [id number] : 1950 Acct:[id number] Age/Sex: 73 / F ADM Date: 5 Loc: ER Room: Type: [facility] ER Attending Dr: Copies to: Regina Garcia DO~ Ordering Provider: Regina Garcia DO Date of Service: 06/01/24 XR/XR tibia/fibula BI: Fall ([id number]) CT/CT cervical spine wo con: fall ([id number]) XR/XR chest 1V: Fall ([id number]) XR/XR knee LT 2V: Fall ADDENDUM 1 [...] NO CERVICAL SPINE FRACTURE Impression dictated by: Malini Holden Jr.O.06/01/2024 1:16 PM Dictation Location: RADIO-PC-22 Addendum Dictated By: Saman Vo Jr, DO [...] PROCESS. Impression dictated by: Saman Vo Jr., Suzanne.O.06/01/2024 1:12 PM Dictation Location: RADIO-PC-22 Transcribed By: [facility] 06/01/24 1312 Dictated By: Saman Vo Jr, DO 06/01/24 1309 Signed By: 06/01/24 1312 [facility] HospitalXR tibia/fibula BIon 74-62-0595VZ tibia/fibula BINormalThe [facility] Physician GroupaPTT in Platelet poor plasma by Coagulation assayOrdered By: Regina Garcia on 65-79-7920mGHH Coag (PPP) [Time]Activated partial thromboplastin time (aPTT) in platelet poor plasma by coagulation a 25.1-36.5FWooster Community HospitalComment on above:A hematocrit value greater than 55% may lead to inaccurate results in coagulation testing. Patients having hematocrit values >55% require a special collection tube for coagulation studies. Please contact the laboratory at [phone] for redraw instructions. pH Test strip (U)Ordered By: Regina Garcia on 93-95-7356sA (U)pH of Urine by Test strip5.0-9.0[facility] HospitalOphthalmic OCT panelon 35-63-6506NMGXSaint John's [facility] Eye Images reviewed and comparison made [...] left eye (OS). Stable right eye (OD). 90/70.[facility] CarolinaRadiology Study observation (narrative)[facility] HealthcareBasophils Auto (Bld) [#/Vol]on 68-90-6180Nxlgunqxp (Bld) [#/Vol]Automated basophil count0.0-0.1FWooster Community Hospital Basophils/100 WBC Auto (Bld)on 69-62-8738Hayvegehr/100 WBC (Bld)Automated basophil %0.2-2.0[facility] HospitalEosinophils/100 WBC Auto (Bld) on 06-81-3656Bjnboubgmir/100 WBC (Bld)Automated eosinophil %0.9-7.0[facility] HospitalErythrocyte distribution width Auto (RBC) [Ratio]on 54-63-7443Rzlfermgesj distribution width (RBC) [Ratio]Erythrocyte distribution width [Ratio] by Automated vhprwEhyw40.0-15.0[facility] Estimated glomerular filtration rate (GFR) non- Americanon 04-17-2024 GFR/1.73 sq M.predicted among non-blacks MDRD (S/P/Bld) [Vol rate/Area]Estimated glomerular filtration rate (GFR) non- AmericanLow>=60 mL/min/1.73m 2 [facility] HospitalHematocrit Auto (Bld) [Volume fraction]on 95-80-7341Qijqbbxkhq (Bld) [Volume fraction]Hematocrit [Volume Fraction] of Blood by Automated jbnytPke61.0-48.0[facility] HospitalHemoglobin [Mass/volume] in Bloodon 21-48-0110Iohwcdkdxo (Bld) [Mass/Vol]Hemoglobin [Mass/volume] in MqxnrIez87.0-16.0[facility] HospitalIron binding capacity [Mass/volume] in Serum or Plasmaon 88-39-5122Ngln binding capacity [Mass/Vol]Iron binding capacity [Mass/volume] in Serum or Lhjyac267.0-450.0 [facility] HospitalIron saturation [Mass Fraction] in Serum or Plasmaon 79-69-7536Lwsw saturation [Mass fraction]Iron saturation [Mass Fraction] in Serum or PlasmaShelby Memorial HospitalLaboratory - Chemistry and Chemistry - challengeon 42-84-0544Tkspyrv [Mass/Vol]8.9 mg/dL 8.5-10.1FWooster Community HospitalChloride [Moles/Vol]106 mmol/L98-107 [facility] HospitalCO2 [Moles/Vol]31.2 mmol/L21.0-32.0[facility] HospitalCobalamin (Vitamin B12) [Mass/Vol]376 pg/eW946-5178 [facility] HospitalComment on above:Performed at: [facility] [address] [id number] Director: Jerad Medina PhD, Phone: [phone] [Mass/Vol]1.27 mg/dLHigh0.55-1.02[facility] HospitalFerritin [Mass/Vol]74.0 ng/mL8.0-252.0[facility] HospitalGFR/1.73 sq M.predicted MDRD (S/P/Bld) [Vol rate/Area]50 mL/min/{1.73_m2} Low>=60 mL/min/1.73m 2FWooster Community HospitalGlucose [Mass/Vol]90 mg/pB94-402YwwwnrffuShelby Memorial HospitalIron [Mass/Vol]97.0 ug/dL50.0-170.0 [facility] HospitalPotassium [Moles/Vol]4.5 mmol/L3.5-5.1FNationwide Children's Hospitalodium [Moles/Vol]144 mmol/E655-448ZbfqzhulxShelby Memorial HospitalUrea nitrogen [Mass/Vol]20.0 mg/dLHigh7.0-18.0[facility] HospitalUrea nitrogen/Creatinine [Mass ratio]15.7 mg/mgShelby Memorial HospitalLaboratory - Hematology and Cell countson 96-77-7095Ivuvthko granulocytes/100 WBC (Bld)0.5 %0.0-0.5[facility] Leukocytes [#/volume] corrected for nucleated erythrocytes in Blood by Automated counon 47-60-4598IND corrected for nucl RBC Auto (Bld) [#/Vol]Leukocytes [#/volume] corrected for nucleated erythrocytes in Blood by Automated coun 4.0-11.0[facility] HospitalLymphocytes Auto (Bld) [#/Vol]on 86-92-1815Wtvorppcrek (Bld) [#/Vol]Lymphocytes [#/volume] in Blood by Automated count1.2-3.8[facility] HospitalLymphocytes/100 WBC Auto (Bld)on 39-04-3926Xoguwdxhgtu/100 WBC (Bld)Lymphocytes/100 leukocytes in Blood by Automated count20.5-60.0[facility]H Auto (RBC) [Entitic mass]on 67-49-6781ZRT (RBC) [Entitic mass]MCH [Entitic mass] by Automated count 26.7-34.0[facility] HospitalMCHC Auto (RBC) [Mass/Vol]on 82-25-8022YSDU (RBC) [Mass/Vol]MCHC [Mass/volume] by Automated count29.9-35.2 [facility] HospitalMCV Auto (RBC) [Entitic vol]on 97-29-4529DWL (RBC) [Entitic vol]MCV [Entitic volume] by Automated count81.0-99.0[facility] HospitalMonocytes Auto (Bld) [#/Vol]on 78-11-8915Zhwztries (Bld) [#/Vol]Automated blood monocyte count0.3-0.8[facility] Monocytes/100 WBC Auto (Bld)on 92-30-9682Hgpncfpsm/100 WBC (Bld)Automated monocyte %1.7-12.0[facility] HospitalNeutrophils Auto (Bld) [#/Vol]on 51-10-5168Uoarmskajol (Bld) [#/Vol]Neutrophils [#/volume] in Blood by Automated count1.4-6.5FWooster [facility] HospitalNeutrophils/100 WBC Auto (Bld)on 96-20-0228Vwolginuhet/100 WBC (Bld)Automated neutrophil %43.0-75.0 [facility] HospitalNo Panel Informationon 65-09-6904Wusnqkamjww # (Auto)0.2 10 3/uL0.0-0.7FWooster [facility] HospitalFolate20.00 ng/mL 8.60-58.90[facility] HospitalImmature Granulocyte # (Auto)0.03 10 3/uL0.00-0.03[facility] HospitalPlatelet mean volume Auto (Bld) [Entitic vol]on 83-52-6909Wdxyxism mean volume (Bld) [Entitic vol]Platelet mean volume [Entitic volume] in Blood by Automated countLow9.5-13.5FWooster [facility] HospitalPlatelets Auto (Bld) [#/Vol]on 71-61-4276Wmihiojii (Bld) [#/Vol] Platelets [#/volume] in Blood by Automated ogugn490-309NpeavodfrShelby Memorial HospitalRBC Auto (Bld) [#/Vol]on 00-42-2138AUH (Bld) [#/Vol]Erythrocytes [#/volume] in Blood by Automated countLow4.20-5.40[facility] Memorial Hospitalerum or plasma anion gap determinationon 49-93-0676Jrkwe gap [Moles/Vol] Serum or plasma anion gap determinationShelby Memorial HospitalAlanine aminotransferase [Enzymatic activity/volume] in Serum or PlasmaOrdered By: Josh Sosa on 11-84-3689XLA [Catalytic activity/Vol]Alanine aminotransferase [Enzymatic activity/volume] in Serum or PlasmaShelby Memorial HospitalAlbumin [Mass/volume] in Serum or Plasma by Bromocresol green (BCG) dye binding methoOrdered By: Josh Sosa on 55-94-2111Vbmtwsi BCG dye [Mass/Vol] Albumin [Mass/volume] in Serum or Plasma by Bromocresol green (BCG) dye binding methoLow3.5-5.7FWooster Community HospitalAlkaline phosphatase [Enzymatic activity/volume] in Serum or PlasmaOrdered By: Josh Sosa on 31-07-9029EXS [Catalytic activity/Vol]Alkaline phosphatase [Enzymatic activity/volume] in Serum or Ioikap61-611IbqlxvdnuShelby Memorial HospitalAspartate aminotransferase [Enzymatic activity/volume] in Serum or PlasmaOrdered By: Josh Sosa on 10-86-3499GFV [Catalytic activity/Vol]Aspartate aminotransferase [Enzymatic activity/volume] in Serum or Exrumx73-19BqxqfajmnShelby Memorial Hospital Basophils Auto (Bld) [#/Vol]Ordered By: Josh Sosa on 27-21-3492Gylgygevt (Bld) [#/Vol]Automated basophil count0.0-0.2[facility] Basophils/100 WBC Auto (Bld)Ordered By: Josh Sosa on 94-89-2760Gamnshwke/100 WBC (Bld)Automated basophil %.[facility] HospitalBilirubin.total [Mass/volume] in Serum or PlasmaOrdered By: Josh Sosa on 25-06-0946Wbgvqxuiw [Mass/Vol]Bilirubin.total [Mass/volume] in Serum or Plasma0.3-1.0[facility] HospitalCalcium [Mass/volume] in Serum or PlasmaOrdered By: Josh Sosa on 23-84-4312Ezbzsym [Mass/Vol]Calcium [Mass/volume] in Serum or Plasma Low8.6-10.3FWooster [facility] HospitalCarbon dioxide, total [Moles/volume] in Serum or PlasmaOrdered By: Josh Sosa on 11-97-7248BU4 [Moles/Vol]Carbon dioxide, total [Moles/volume] in Serum or Eohadh42.0-31.0[facility] HospitalChloride [Moles/volume] in Serum or PlasmaOrdered By: Josh Sosa on 51-55-9858Waqprveh [Moles/Vol]Chloride [Moles/volume] in Serum or PlasmaHigh 98-107[facility] HospitalComplete Blood Count Auto Diffon 63-88-0029Dxqtxueur (Bld) [#/Vol]0.0 10*3/uLNormal0.0-0.2The [facility] Physician GroupComment on above:Result Comment: PERFORMED BY:[address] [place], [place] [phone] MEDICAL DIRECTORLLOYD NICHOLSON M.D.Performed By: #### CBC, CMP ####[place] [id number] USABasophils/100 WBC (Bld)0.8 %Normal.The [facility] Physician GroupComment on above:Performed By: #### CBC, CMP ####[place] [id number] USAEosinophils (Bld) [#/Vol]0.2 10*3/uLNormal0.0-0.45The [facility] Physician GroupComment on above:Performed By: #### CBC, CMP ####[place] [id number] USAEosinophils/100 WBC (Bld)3.4 %Normal.The [facility] Physician GroupComment on above:Performed By: #### CBC, CMP ####[place] [id number] USAErythrocyte distribution width (RBC) [Ratio]14.9 %Wotksk09.9-15.3The [facility] Physician GroupComment on above:Performed By: #### CBC, CMP ####[place] [id number] [place] Hematocrit (Bld) [Volume fraction]29.6 %Low34.0-46.4The [facility] Physician GroupComment on above:Performed By: #### CBC, CMP ####[place] [address] USAHemoglobin (Bld) [Mass/Vol]9.9 g/dLLow 11.8-15.4The [facility] Physician GroupComment on above:Performed By: #### CBC, CMP ####[place] [address] [place] Lymphocytes (Bld) [#/Vol]1.6 10*3/uLNormal1.00-4.8The [facility] Comment on above:Performed By: #### CBC, CMP ####[place] [address] USALymphocytes/100 WBC (Bld)28.0 %Normal. The [facility] Physician GroupComment on above:Performed By: #### CBC, CMP ####[address] (RBC) [Entitic mass]28.8 abTuundz92.7-34.3The [facility] Physician GroupComment on above:Performed By: #### CBC, CMP ####[address]V (RBC) [Entitic vol]86.1 sWNynvxx54-024Ojs [facility] Physician GroupComment on above:Performed By: #### CBC, CMP ####[place] [address] USAMean Corpuscular HGB Conc33.5 g/jOGcazog45.0-35.0The [facility] Physician GroupComment on above:Performed By: #### CBC, CMP ####[place] [address] USAMonocytes (Bld) [#/Vol]1.1 10*3/uLHigh0.0-0.8 The [facility] Physician GroupComment on above:Performed By: #### CBC, CMP ####[place] [address] [place] Monocytes/100 WBC (Bld)19.5 %Normal.The [facility] Physician GroupComment on above:Performed By: #### CBC, CMP ####[place] [address] USANeutrophils (Bld) [#/Vol]2.7 10*3/uLNormal1.8-7.7The [facility] Physician GroupComment on above:Performed By: #### CBC, CMP ####[place] [id number] [place] Neutrophils/100 WBC (Bld)48.3 %Normal.The [facility] Physician GroupComment on above:Performed By: #### CBC, CMP ####[place] [id number] USANRBC%0.2 /100{WBC}Normal0-0.5The [facility] Physician GroupComment on above:Performed By: #### CBC, CMP ####[place] [id number] USAPlatelet mean volume (Bld) [Entitic vol]8.0 fLNormal6.3-10.7The [facility] Physician GroupComment on above: Performed By: #### CBC, CMP ####[place] [address] USAPlatelets (Bld) [#/Vol]285 10*3/eOZkfcqm243-711Gic [facility] Physician GroupComment on above:Performed By: #### CBC, CMP ####[place] [address] USARBC (Bld) [#/Vol]3.44 10*6/uLLow3.60-5.00The [facility] Physician GroupComment on above:Performed By: #### CBC, CMP ####[place] [address] USAWBC (Bld) [#/Vol]5.7 10*3/uLNormal3.8-11.6The [facility] Physician GroupComment on above:Performed By: #### CBC, CMP ####[place] [id number] [facility] Comprehensive Metabolic Panelon 97-40-8887Cxxldfc [Mass/Vol]2.9 g/dLLow3.5-5.7 The [facility] Physician GroupComment on above:Performed By: #### CBC, CMP ####[place] [address] [place] Albumin/Globulin [Mass ratio]1.4 {ratio}NormalThe [facility] Comment on above:Performed By: #### CBC, CMP ####[place] [address] [place] [address] USAALP [Catalytic activity/Vol]49 U/L Cijicv52-821Cdl [facility] Physician GroupComment on above:Performed By: #### CBC, CMP ####[place] [address] [place] [address] USAALT [Catalytic activity/Vol]13 U/LNormal7-52The [facility] Comment on above:Performed By: #### CBC, CMP ####[place] [address] [place] [address] USAAnion gap [Moles/Vol]9.5 mmol/LNormal 6.0-15.0The [facility] Physician GroupComment on above:Performed By: #### CBC, CMP ####[address] [address] USAAST [Catalytic activity/Vol]13 U/MDqpkgj84-78Vqk [facility] Physician GroupComment on above:Performed By: #### CBC, CMP ####[address] [address] USABilirubin [Mass/Vol]1.0 mg/dLNormal0.3-1.0The [facility] Physician GroupComment on above:Performed By: #### CBC, CMP ####[address] [address] USACalcium [Mass/Vol]8.1 mg/dLLow8.6-10.3The [facility] Physician GroupComment on above: Performed By: #### CBC, CMP ####[address] [address] USAChloride [Moles/Vol]109 mmol/LQsmb58-463Mny [facility] Physician GroupComment on above:Performed By: #### CBC, CMP ####[address] [address] USACO2 [Moles/Vol]27.5 mmol/BVnerwe17.0-31.0The [facility] Physician GroupComment on above:Performed By: #### CBC, CMP ####[address] [address] USACreatinine [Mass/Vol]0.96 mg/dLNormal0.60-1.20The [facility] Physician GroupComment on above:Performed By: #### CBC, CMP ####[address] [address] [place] Creatinine Clr Calc Cncczolz64.13NoFrye [facility] Physician GroupComment on above:Result Comment: PERFORMED BY:[address] [place], [place] [phone] MEDICAL DIRECTORLLOYD YANEZ M.D.Performed By: #### CBC, CMP ####[place] [id number] USAGFR/1.73 sq M.predicted MDRD (S/P/Bld) [Vol rate/Area]mL/min/{1.73_m2}NormalThe [facility] Physician GroupComment on above: Performed By: #### CBC, CMP ####[address] [address] USAGlobulin (S) [Mass/Vol]2.1 g/dLNoFrye [facility] Physician [facility] UnitComment on above:Performed By: #### CBC, CMP ####[address] [address] USAGlucose [Mass/Vol]96 mg/sCVzbzah14-444Wae [facility] Physician GroupComment on above:Result Comment: Random Glucose Reference Range is dependent on time and content of last meal. Glucose of more than 200 mg/dL in a nonstressed, ambulatory subject supports the diagnosis of Diabetes Mellitus. ADA recommended reference rangePerformed By: #### CBC, CMP ####[place] [id number] USAPotassium [Moles/Vol]4.0 mmol/LNormal3.5-5.1The [facility] Physician GroupComment on above:Performed By: #### CBC, CMP ####[place] [id number] USAProtein [Mass/Vol]5.0 g/dLLow6.4-8.9 The [facility] Physician GroupComment on above:Performed By: #### CBC, CMP ####[place] [address] [place] [address] USASodium [Moles/Vol]142 mmol/FIrgvne948-988Bsl [facility] Physician GroupComment on above: Performed By: #### CBC, CMP ####[facility] [address] [place] [id number] USAUrea nitrogen [Mass/Vol]46 mg/dLHigh7-25The [facility] Physician GroupComment on above:Performed By: #### CBC, CMP ####[place] [address] [place] [id number] [facility] Creatinine [Mass/volume] in Serum or PlasmaOrdered By: Josh Sosa on 04-09-2024 Creatinine [Mass/Vol]Creatinine [Mass/volume] in Serum or Plasma0.60-1.20 [facility] HospitalEosinophils Auto (Bld) [#/Vol]Ordered By: Josh Sosa on 78-48-5097Eaqwsdcsego (Bld) [#/Vol]Automated eosinophil count0.0-0.45 [facility] HospitalEosinophils/100 WBC Auto (Bld)Ordered By: Josh Sosa on 45-86-6645Rilimirqqoy/100 WBC (Bld)Automated eosinophil %.[facility] HospitalErythrocyte distribution width Auto (RBC) [Ratio]Ordered By: Josh Sosa on 94-23-5343Moqgiegnlju distribution width (RBC) [Ratio] Erythrocyte distribution width [Ratio] by Automated count11.9-15.3FWooster Community HospitalGlobulin Calc (S) [Mass/Vol]Ordered By: Josh Sosa on 91-69-6418Ymwvvtxp (S) [Mass/Vol]Serum globulin measurement by calculation (mass/volume)[facility] HospitalGlucose [Mass/volume] in Serum or PlasmaOrdered By: Josh Sosa on 70-07-6116Njlween [Mass/Vol]Glucose [Mass/volume] in Serum or Zfvpdb53-121PxsupyczpShelby Memorial HospitalComment on above:ADA recommended reference rangeRandom Glucose Reference Range is dependent on time and content of last meal. Glucose of more than 200 mg/dL in a nonstressed, ambulatory subject supports the diagnosisof Diabetes Mellitus. Hematocrit Auto (Bld) [Volume fraction]Ordered By: Josh Sosa on 04-09-2024 Hematocrit (Bld) [Volume fraction]Hematocrit [Volume Fraction] of Blood by Automated ukmsbLrz64.0-46.4FWooster Community HospitalHemoglobin [Mass/volume] in BloodOrdered By: Josh Ssoa on 59-54-7230Uwiivxomin (Bld) [Mass/Vol]Hemoglobin [Mass/volume] in YxdjoFjd54.8-15.4FWooster [facility] HospitalLeukocytes [#/volume] corrected for nucleated erythrocytes in Blood by Automated counOrdered By: Josh Sosa on 48-92-6511JRL corrected for nucl RBC Auto (Bld) [#/Vol]Leukocytes [#/volume] corrected for nucleated erythrocytes in Blood by Automated coun3.8-11.6[facility] Lymphocytes Auto (Bld) [#/Vol]Ordered By: Josh Sosa on 76-56-6312Zcaofqvhhlp (Bld) [#/Vol]Lymphocytes [#/volume] in Blood by Automated count1.00-4.8[facility] HospitalLymphocytes/100 WBC Auto (Bld)Ordered By: Josh Sosa on 18-09-4856Evpuaeczotk/100 WBC (Bld)Lymphocytes/100 leukocytes in Blood by Automated count.[facility] HospitalH Auto (RBC) [Entitic mass] Ordered By: Josh Sosa on 53-88-6427WFP (RBC) [Entitic mass]MCH [Entitic mass] by Automated count24.7-34.3FWooster Community HospitalMCHC Auto (RBC) [Mass/Vol]Ordered By: Josh Sosa on 96-14-3195FTYT (RBC) [Mass/Vol]MCHC [Mass/volume] by Automated count32.0-35.0[facility] HospitalMCV Auto (RBC) [Entitic vol]Ordered By: Josh Sosa on 27-92-5274ADZ (RBC) [Entitic vol]MCV [Entitic volume] by Automated infeq01-613BvgqichqyShelby Memorial HospitalMonocytes Auto (Bld) [#/Vol]Ordered By: Josh Sosa on 73-78-3144Halryaeid (Bld) [#/Vol]Automated blood monocyte countHigh0.0-0.8[facility] HospitalMonocytes/100 WBC Auto (Bld)Ordered By: Josh Sosa on 04-09-2024 Monocytes/100 WBC (Bld)Automated monocyte %.[facility] Neutrophils Auto (Bld) [#/Vol]Ordered By: Josh Sosa on 37-15-8891Ywkjpkikrux (Bld) [#/Vol]Neutrophils [#/volume] in Blood by Automated count1.8-7.7FWooster Community HospitalNeutrophils/100 WBC Auto (Bld)Ordered By: Josh Sosa on 61-94-8181Thyzfmtdezp/100 WBC (Bld)Automated neutrophil %.[facility] HospitalNo Panel InformationOrdered By: Josh Sosa on 75-96-9491Wfcdonvtt GFR (CKD-EPI)> 60.0 mL/MinShelby Memorial HospitalPharmacy Creatinine Clearance (Chem46.13[facility] HospitalNucleated erythrocytes [Presence] in Blood by Automated countOrdered By: Josh Sosa on 04-09-2024 Nucleated RBC Auto Ql (Bld)Nucleated erythrocytes [Presence] in Blood by Automated count0-0.5FWooster Community HospitalPlatelet mean volume Auto (Bld) [Entitic vol]Ordered By: Josh Sosa on 24-99-9912Fxwoeqju mean volume (Bld) [Entitic vol]Platelet mean volume [Entitic volume] in Blood by Automated count6.3-10.7FWooster Community HospitalPlatelets Auto (Bld) [#/Vol] Ordered By: Josh Sosa on 65-54-1849Gwjswjdka (Bld) [#/Vol]Platelets [#/volume] in Blood by Automated gzqir119-322DzvnzoysvShelby Memorial HospitalPotassium [Moles/volume] in Serum or PlasmaOrdered By: Josh Sosa on 42-27-5514Powihhobj [Moles/Vol]Potassium [Moles/volume] in Serum or Plasma3.5-5.1FWooster Community HospitalProtein [Mass/volume] in Serum or PlasmaOrdered By: Josh Sosa on 47-45-9597Wvvownc [Mass/Vol]Protein [Mass/volume] in Serum or PlasmaLow6.4-8.9 [facility] HospitalRBC Auto (Bld) [#/Vol]Ordered By: Josh Sosa on 95-12-5943ROZ (Bld) [#/Vol]Erythrocytes [#/volume] in Blood by Automated countLow3.60-5.00[facility] Hospitalerum or plasma albumin/globulin mass ratioOrdered By: Josh Sosa on 22-01-7092Lxtkras/Globulin [Mass ratio]Serum or plasma albumin/globulin mass ratioMemorial Health System Marietta Memorial Hospitalerum or plasma anion gap determinationOrdered By: Josh Sosa on 77-55-6653Oyswy gap [Moles/Vol]Serum or plasma anion gap determination6.0-15.0 [facility] Hospitalodium [Moles/volume] in Serum or PlasmaOrdered By: Josh Sosa on 45-95-2073Jqyypw [Moles/Vol]Sodium [Moles/volume] in Serum or Soirjg587-846VswwxhlgbShelby Memorial HospitalUrea nitrogen [Mass/volume] in Serum or PlasmaOrdered By: Josh Sosa on 24-71-9985Swqz nitrogen [Mass/Vol]Urea nitrogen [Mass/volume] in Serum or PlasmaHigh7-25[facility] HospitalWBC Auto (Bld) [#/Vol]Ordered By: Josh Sosa on 60-48-6793UOP (Bld) [#/Vol]Leukocytes [#/volume] in Blood by Automated count3.8-11.6FWooster Community HospitalBasic Metabolic Panelon 29-54-9682Zszbd gap [Moles/Vol] 15.3 mmol/LHigh6.0-15.0The [facility] Physician GroupComment on above:Performed By: #### BMP ####[facility] [address] [place] [address] USACalcium [Mass/Vol]8.6 mg/dLNormal8.6-10.3The [facility] Comment on above:Performed By: #### BMP ####[place] [address] [place] [address] USAChloride [Moles/Vol]103 mmol/JNwwtpo65-787Mwz [facility] Physician GroupComment on above:Performed By: #### BMP ####[address] [address] USACO2 [Moles/Vol]30.8 mmol/EQmofuu64.0-31.0The [facility] Physician GroupComment on above:Performed By: #### BMP ####[address] [address] USACreatinine [Mass/Vol]1.45 mg/dLHigh0.60-1.20The [facility] Comment on above:Performed By: #### BMP ####[address] [address] USACreatinine Clr Calc Gfxdjjzm88.48NormBroward Health Imperial Point Physician GroupComment on above:Result Comment: PERFORMED BY:[address] [place], [place] [phone] MEDICAL DIRECTORLLOYD NICHOLSON M.D.Performed By: #### BMP ####[address] [address] USAEstimated GFR37.851 mL/MinNormBroward Health Imperial Point Physician [facility] Care UnitComment on above:Performed By: #### BMP ####[address] [address] [place] Glucose [Mass/Vol]92 mg/jLLbdcpg79-325Dlv [facility] Physician [facility] Care UnitComment on above:Result Comment: Random Glucose Reference Range is dependent on time and content of last meal. Glucose of more than 200 mg/dL in a nonstressed, ambulatory subject supports the diagnosis of Diabetes Mellitus. ADA recommended reference rangePerformed By: #### BMP ####[address] [address] USAPotassium [Moles/Vol]4.1 mmol/LNormal3.5-5.1 The [facility] Physician GroupComment on above:Performed By: #### BMP ####[place] [id number] USASodium [Moles/Vol]145 mmol/XRftmrh084-942Kte [facility] Physician GroupComment on above: Performed By: #### BMP ####[place] [id number] USAUrea nitrogen [Mass/Vol]68 mg/dLHigh7-25The [facility] Physician GroupComment on above:Performed By: #### BMP ####[place] [id number] USAComplete Blood Count Auto Diffon 53-29-1674Uwnhamchp (Bld) [#/Vol]0.0 10*3/uLNormal0.0-0.2The [facility] Physician GroupComment on above:Result Comment: PERFORMED BY:[address] [place], [place] [phone] MEDICAL DIRECTORLLOYD NICHOLSON M.D.Performed By: #### CBC, MG, PHOS, CMP ####[place] [id number] [place] Basophils/100 WBC (Bld)0.6 %Normal.The [facility] Physician GroupComment on above:Performed By: #### CBC, MG, PHOS, CMP ####[place] [id number] USAEosinophils (Bld) [#/Vol]0.2 10*3/uL Normal0.0-0.45The [facility] Physician GroupComment on above:Performed By: #### CBC, MG, PHOS, CMP ####[place] [id number] USAEosinophils/100 WBC (Bld)3.5 %Normal.[facility] Comment on above:Performed By: #### CBC, MG, PHOS, CMP ####[place] [id number] USAErythrocyte distribution width (RBC) [Ratio]14.6 %Fjbsej46.9-15.3The [facility] Physician GroupComment on above:Performed By: #### CBC, MG, PHOS, CMP ####[place] [address] USAHematocrit (Bld) [Volume fraction]32.2 %Low34.0-46.4The [facility] Physician GroupComment on above:Performed By: #### CBC, MG, PHOS, CMP ####[place] [address] USAHemoglobin (Bld) [Mass/Vol]10.9 g/dLLow11.8-15.4The [facility] Physician GroupComment on above:Performed By: #### CBC, MG, PHOS, CMP ####[place] [address] [place] Lymphocytes (Bld) [#/Vol]1.4 10*3/uLNormal1.00-4.8The [facility] Comment on above:Performed By: #### CBC, MG, PHOS, CMP ####[place] [address] USALymphocytes/100 WBC (Bld)20.7 %Normal.The [facility] Physician GroupComment on above:Performed By: #### CBC, MG, PHOS, CMP ####[address]MCH (RBC) [Entitic mass]28.8 vsQjrctx85.7-34.3The [facility] Physician GroupComment on above:Performed By: #### CBC, MG, PHOS, CMP ####[address]MCV (RBC) [Entitic vol]85.2 qQKaumbe52-687Zwk [facility] Physician GroupComment on above:Performed By: #### CBC, MG, PHOS, CMP ####[place] [address] USAMean Corpuscular HGB Conc33.7 g/uFToksoo63.0-35.0The [facility] Physician GroupComment on above:Performed By: #### CBC, MG, PHOS, CMP ####[place] [address] [place] Monocytes (Bld) [#/Vol]1.4 10*3/uLHigh0.0-0.8The [facility] Comment on above:Performed By: #### CBC, MG, PHOS, CMP ####[place] [address] USAMonocytes/100 WBC (Bld)20.5 % Normal.The [facility] Physician GroupComment on above:Performed By: #### CBC, MG, PHOS, CMP ####[place] [address] USANeutrophils (Bld) [#/Vol]3.7 10*3/uLNormal1.8-7.7The [facility] Physician GroupComment on above:Performed By: #### CBC, MG, PHOS, CMP ####[place] [address] USANeutrophils/100 WBC (Bld)54.7 %Normal.The [facility] Physician GroupComment on above:Performed By: #### CBC, MG, PHOS, CMP ####[place] [address] USANRBC%0.0 /100{WBC}Normal0-0.5The [facility] Physician GroupComment on above:Performed By: #### CBC, MG, PHOS, CMP ####[place] [address] USAPlatelet mean volume (Bld) [Entitic vol]7.7 fLNormal6.3-10.7The [facility] Physician GroupComment on above:Performed By: #### CBC, MG, PHOS, CMP ####[place] [id number] USAPlatelets (Bld) [#/Vol]320 10*3/uL Hpgvax023-108Cle [facility] Physician GroupComment on above:Performed By: #### CBC, MG, PHOS, CMP ####[place] [id number] USARBC (Bld) [#/Vol]3.78 10*6/uLNormal3.60-5.00The [facility] Physician GroupComment on above:Performed By: #### CBC, MG, PHOS, CMP ####[place] [address] USAWBC (Bld) [#/Vol]6.7 10*3/uLNormal3.8-11.6The [facility] Physician GroupComment on above:Performed By: #### CBC, MG, PHOS, CMP ####[place] [address] USAComprehensive Metabolic Panelon 10-01-7968Slucvzl [Mass/Vol]3.1 g/dLLow3.5-5.7The [facility] Physician GroupComment on above: Performed By: #### CBC, MG, PHOS, CMP ####[place] [address] USAAlbumin/Globulin [Mass ratio]1.3 {ratio}Normal The [facility] Physician GroupComment on above:Performed By: #### CBC, MG, PHOS, CMP ####[place] [address] USAALP [Catalytic activity/Vol]52 U/VAkujgp19-196Arj [facility] Physician GroupComment on above:Performed By: #### CBC, MG, PHOS, CMP ####[place] [address] USAALT [Catalytic activity/Vol]13 U/L Normal7-52The [facility] Physician GroupComment on above:Performed By: #### CBC, MG, PHOS, CMP ####[place] [address] USAAnion gap [Moles/Vol]11.3 mmol/LNormal6.0-15.0The [facility] Physician GroupComment on above:Performed By: #### CBC, MG, PHOS, CMP ####[place] [address] USAAST [Catalytic activity/Vol]14 U/RLvfmpl65-73Mqp [facility] Physician GroupComment on above: Performed By: #### CBC, MG, PHOS, CMP ####[place] [address] USABilirubin [Mass/Vol]0.9 mg/dLNormal0.3-1.0The [facility] Physician GroupComment on above:Performed By: #### CBC, MG, PHOS, CMP ####[place] [address] USACalcium [Mass/Vol]8.5 mg/dLLow8.6-10.3The [facility] Physician GroupComment on above: Performed By: #### CBC, MG, PHOS, CMP ####[place] [address] USAChloride [Moles/Vol]107 mmol/ACpxxds06-633Dsm [facility] Physician GroupComment on above:Performed By: #### CBC, MG, PHOS, CMP ####[place] [address] USACO2 [Moles/Vol]29.4 mmol/UMingrd00.0-31.0The [facility] Physician GroupComment on above:Performed By: #### CBC, MG, PHOS, CMP ####[place] [address] USACreatinine [Mass/Vol]1.37 mg/dL Significant change up0.60-1.20The [facility] Physician GroupComment on above: Performed By: #### CBC, MG, PHOS, CMP ####[place] [address] USACreatinine Clr Calc Yvbussff84.26NormBroward Health Imperial Point Physician GroupComment on above:Performed By: #### CBC, MG, PHOS, CMP ####[place] [address] [place] Estimated GFR40.518 mL/MinNormBroward Health Imperial Point Physician GroupComment on above: Performed By: #### CBC, MG, PHOS, CMP ####[address] [place] [address] USAGlobulin (S) [Mass/Vol]2.4 g/dLNormalThe [facility] Physician GroupComment on above:Performed By: #### CBC, MG, PHOS, CMP ####[address] [address] USAGlucose [Mass/Vol]95 mg/vNUqjfac59-070Sau [facility] Physician GroupComment on above: Result Comment: Random Glucose Reference Range is dependent on time and content of last meal. Glucose of more than 200 mg/dL in a nonstressed, ambulatory subject supports the diagnosis of Diabetes Mellitus. ADA recommended reference rangePerformed By: #### CBC, MG, PHOS, CMP ####[place] [id number] USAPotassium [Moles/Vol]3.7 mmol/LNormal 3.5-5.1The [facility] Physician GroupComment on above:Performed By: #### CBC, MG, PHOS, CMP ####[place] [address] USAProtein [Mass/Vol]5.5 g/dLLow6.4-8.9The [facility] Physician GroupComment on above:Performed By: #### CBC, MG, PHOS, CMP ####[place] [address] USASodium [Moles/Vol]144 mmol/L Significant change eotb851-371Gtv [facility] Physician GroupComment on above: Performed By: #### CBC, MG, PHOS, CMP ####[place] [id number] USAUrea nitrogen [Mass/Vol]91 mg/dLSignificant change up7-25The [facility] Physician GroupComment on above:Performed By: #### CBC, MG, PHOS, CMP ####[address] [address] USAMagnesiumon 89-86-4704Jvuuhdsif [Mass/Vol]2.0 mg/dLNormal1.9-2.7The [facility] Physician GroupComment on above:Result Comment: PERFORMED BY:[address] [place], [place] [phone] MEDICAL DIRECTORLLOYD NICHOLSON M.D.Performed By: #### CBC, MG, PHOS, CMP ####[address] [place] [address] [facility] Magnesium [Mass/volume] in Serum or PlasmaOrdered By: Josh Sosa on 04-08-2024 Magnesium [Mass/Vol]Magnesium [Mass/volume] in Serum or Plasma1.9-2.7FWooster Community HospitalPhosphate [Mass/volume] in Serum or PlasmaOrdered By: Josh Sosa on 14-93-7719Zgaimdeot [Mass/Vol]Phosphate [Mass/volume] in Serum or Plasma2.5-4.5FWooster Community HospitalPhosphoruson 16-08-5938Pamhtltfw [Mass/Vol]3.9 mg/dLNormal2.5-4.5The [facility] Physician GroupComment on above: Performed By: #### CBC, MG, PHOS, CMP ####[address] [address] USAAppearance of UrineOrdered By: Romel William on 28-76-8686Anxaijthul (U)Urine appearanceCleOhio State University [facility] B-Type Natriuretic Peptideon 28-94-8600Phbqftsoabk peptide B (Bld) [Mass/Vol] 193.0 pg/mLHigh5-100The [facility] Physician GroupComment on above:Result Comment: PERFORMED BY:[address] [place], [place] [phone] MEDICAL DIRECTORLLOYD NICHOLSON M.D. Performed By: #### BNP, HS TROP, CMP, SCAN CBC, CK, MG ####[address] [address] USABilirubin Test strip Ql (U) Ordered By: Romel William on 93-96-0408Mhiixzavp Ql (U)Bilirubin.total [Presence] in Urine by Test stripNegativeShelby Memorial HospitalCT head/brain wo conon 17-58-3041OX head/brain wo conNormalThe [facility] Physician [facility] UnitColor Auto (U)Ordered By: Romel William on 95-40-4075Phmly (U)Color of Urine by Auto [facility] HospitalComprehensive Metabolic Panelon 45-77-8364Dmnseyq [Mass/Vol]3.8 g/dLNormal3.5-5.7The [facility] Physician [facility] Comment on above:Performed By: #### BNP, HS TROP, CMP, SCAN CBC, CK, MG ####[address] [place] [address] [place] Albumin/Globulin [Mass ratio]1.4 {ratio}NormalThe [facility] Physician [facility] Comment on above:Performed By: #### BNP, HS TROP, CMP, SCAN CBC, CK, MG ####[address] [address] USAALP [Catalytic activity/Vol]56 U/EPdnwvs37-351Fgp [facility] Physician GroupComment on above:Performed By: #### BNP, HS TROP, CMP, SCAN CBC, CK, MG ####[address] [place] [address] USAALT [Catalytic activity/Vol]16 U/LNormal7-52The [facility] Physician GroupComment on above: Performed By: #### BNP, HS TROP, CMP, SCAN CBC, CK, MG ####[address] [place] [address] USAAnion gap [Moles/Vol]18.0 mmol/LHigh6.0-15.0The [facility] Physician GroupComment on above:Performed By: #### BNP, HS TROP, CMP, SCAN CBC, CK, MG ####[address] [place] [address] USAAST [Catalytic activity/Vol]20 U/XHabcud86-39 The [facility] Physician GroupComment on above:Performed By: #### BNP, HS TROP, CMP, SCAN CBC, CK, MG ####[address] [address] USABilirubin [Mass/Vol]0.8 mg/dLNormal0.3-1.0The [facility] Physician GroupComment on above:Performed By: #### BNP, HS TROP, CMP, SCAN CBC, CK, MG ####[place] [address] USACalcium [Mass/Vol]9.1 mg/dLNormal8.6-10.3The [facility] Physician [facility] Comment on above:Performed By: #### BNP, HS TROP, CMP, SCAN CBC, CK, MG ####[place] [address] USAChloride [Moles/Vol]94 mmol/EDnb34-330Qqo [facility] Physician GroupComment on above: Performed By: #### BNP, HS TROP, CMP, SCAN CBC, CK, MG ####[place] [address] USACO2 [Moles/Vol]30.0 mmol/L Qzhvnn77.0-31.0The [facility] Physician GroupComment on above:Performed By: #### BNP, HS TROP, CMP, SCAN CBC, CK, MG ####[place] [address] USACreatinine [Mass/Vol]2.96 mg/dLHigh0.60-1.20The [facility] Physician GroupComment on above:Performed By: #### BNP, HS TROP, CMP, SCAN CBC, CK, MG ####[place] [address] USACreatinine Clr Calc Gyguwvjn08.24NoFrye [facility] Physician [facility] Comment on above:Performed By: #### BNP, HS TROP, CMP, SCAN CBC, CK, MG ####[place] [address] [place] Estimated GFR16.075 mL/MinNoFrye Regional Medical Center [facility] Physician GroupComment on above: Performed By: #### BNP, HS TROP, CMP, SCAN CBC, CK, MG ####[place] [address] USAGlobulin (S) [Mass/Vol]2.8 g/dL NormalThe [facility] Physician GroupComment on above:Performed By: #### BNP, HS TROP, CMP, SCAN CBC, CK, MG ####[address] [place] [address] USAGlucose [Mass/Vol]109 mg/zXDomt33-920Oxf [facility] Physician GroupComment on above:Result Comment: Random Glucose Reference Range is dependent on time and content of last meal. Glucose of more than 200 mg/dL in a nonstressed, ambulatory subject supports the diagnosis of Diabetes Mellitus. ADA recommended reference rangePerformed By: #### BNP, HS TROP, CMP, SCAN CBC, CK, MG ####[address] [place] [address] [place] Potassium [Moles/Vol]4.0 mmol/LNormal3.5-5.1The [facility] Physician [facility] UnitComment on above:Performed By: #### BNP, HS TROP, CMP, SCAN CBC, CK, MG ####[place] [address] USAProtein [Mass/Vol]6.6 g/dLNormal6.4-8.9The [facility] Physician GroupComment on above:Performed By: #### BNP, HS TROP, CMP, SCAN CBC, CK, MG ####[place] [address] USASodium [Moles/Vol]138 mmol/IQuuglo843-561Uhj [facility] Physician GroupComment on above:Performed By: #### BNP, HS TROP, CMP, SCAN CBC, CK, MG ####[place] [address] USAUrea nitrogen [Mass/Vol]138 mg/dLHigh7-25The [facility] Group Comment on above:Performed By: #### BNP, HS TROP, CMP, SCAN CBC, CK, MG ####[place] [address] USACreatine Kinaseon 68-91-9576ZD [Catalytic activity/Vol]77 U/OOticyc78-617Ikf [facility] Physician GroupComment on above:Performed By: #### BNP, HS TROP, CMP, SCAN CBC, CK, MG ####[facility] [place] [address] [place] Creatine kinase [Enzymatic activity/volume] in Serum or PlasmaOrdered By: Romel William on 30-14-0707PR [Catalytic activity/Vol]Creatine kinase [Enzymatic activity/volume] in Serum or Nfdbtf54-916FworhaqvzShelby Memorial HospitalECG 12 lead ECGon 68-37-7629HMM 12 lead ECGNoUniversity Hospitals Parma [facility] Center Erythrocyte morphology finding [Identifier] in BloodOrdered By: Romel William on 96-71-5982IMM morphology finding Nom (Bld)RBC morphologyShelby Memorial HospitalGlucose [Mass/volume] in Urine by Test stripOrdered By: Romel William on 16-78-1491Lpzlugr Test strip (U) [Mass/Vol]Glucose [Mass/volume] in Urine by Test stripNoalShelby Memorial HospitalHemoglobin Test strip Ql (U)Ordered By: Romel William on 53-31-5309Ezvqkcyxiu Ql (U)Hemoglobin [Presence] in Urine by Test stripNegSelect Medical [facility] [place] Hypochromia LM Ql (Bld)Ordered By: Romel William on 38-42-1995Jpvgoguokwv Ql (Bld)Hypochromia [Presence] in Blood by Light microscopyShelby Memorial HospitalKetones Test strip Ql (U)Ordered By: Romel William on 04-07-2024 Ketones Ql (U)Ketones [Presence] in Urine by Test stripNegSelect Medical Cleveland Clinic [facility] Hospital, BeachwoodLeukocyte esterase [Presence] in Urine by Test strip Ordered By: Romel William on 20-60-0163Oivmusgwf esterase Test strip Ql (U) Leukocyte esterase [Presence] in Urine by Test stripNegSelect Medical [facility] Rehabilitation Hospital, BeachwoodMagnesiumon 15-94-5002Jhcuasdax [Mass/Vol]2.1 mg/dLNormal1.9-2.7 The [facility] Physician GroupComment on above:Result Comment: PERFORMED BY:[address] [place] [place], [place] [phone] MEDICAL DIRECTORLLOYD NICHOLSON M.D.Performed By: #### BNP, HS TROP, CMP, SCAN CBC, CK, MG ####[facility] [place] [address] USAMonocyte distribution width [Entitic volume] in Blood by AutomatedOrdered By: Romel William on 04-04-7913Cznowrzi distribution width Auto (Bld) [Entitic vol]Monocyte distribution width [Entitic volume] in Blood by AutomatedHigh0.00-20.00Shelby Memorial HospitalComment on above:For adults in ED, MDW > 20.0 may be associated with a higher risk of sepsis during the first 12 hrs of hospital admissionNatriuretic peptide B [Mass/Vol]Ordered By: Romel William on 81-20-1462Kdjqfredqtk peptide B (Bld) [Mass/Vol]BNP ser/plasHigh5-100Shelby Memorial HospitalNitrite Test strip Ql (U)Ordered By: Romel William on 68-47-7372Dtxjaro Ql (U)Nitrite [Presence] in Urine by Test stripNegativeShelby Memorial Hospital Platelet adequacy [Presence] in Blood by Light microscopyOrdered By: Romel William on 84-76-5539Hfahzrcqi LM Ql (Bld)Platelet adequacy [Presence] in Blood by Light microscopyNormGalion Community HospitalPlatelet morphology finding [Identifier] in BloodOrdered By: Romel William on 11-90-6750Nwxnikma morphology finding Nom (Bld)Platelet morphology finding [Identifier] in Blood NormalShelby Memorial HospitalProtein Test strip (U) [Mass/Vol]Ordered By: Romel William on 61-35-6719Jsirumw (U) [Mass/Vol]Protein [Mass/volume] in Urine by Test stripNegAdena Regional Medical Centercan and CBCon 67-50-9553Hsmrexijo (Bld) [#/Vol]0.1 10*3/uLNormal0.0-0.2The [facility] Physician GroupComment on above:Result Comment: PERFORMED BY:[facility] [place], [place] [phone] MEDICAL DIRECTORLLOYD NICHOLSON M.D.Performed By: #### BNP, HS TROP, CMP, SCAN CBC, CK, MG ####[place] [id number] USABasophils/100 WBC (Bld)0.6 %Normal.The [facility] Physician GroupComment on above:Performed By: #### BNP, HS TROP, CMP, SCAN CBC, CK, MG ####[place] [address] USAEosinophils (Bld) [#/Vol]0.3 10*3/uLNormal0.0-0.45The [facility] Physician GroupComment on above: Performed By: #### BNP, HS TROP, CMP, SCAN CBC, CK, MG ####[place] [address] USAEosinophils/100 WBC (Bld)2.6 % Normal.The [facility] Physician GroupComment on above:Performed By: #### BNP, HS TROP, CMP, SCAN CBC, CK, MG ####[place] [address] USAErythrocyte distribution width (RBC) [Ratio]14.5 % Uenyzm21.9-15.3The [facility] Physician GroupComment on above:Performed By: #### BNP, HS TROP, CMP, SCAN CBC, CK, MG ####[place] [address] USAHematocrit (Bld) [Volume fraction]34.3 %Normal 34.0-46.4The [facility] Physician GroupComment on above:Performed By: #### BNP, HS TROP, CMP, SCAN CBC, CK, MG ####[place] [address] USAHemoglobin (Bld) [Mass/Vol]11.4 g/dLLow11.8-15.4The [facility] Physician GroupComment on above:Performed By: #### BNP, HS TROP, CMP, SCAN CBC, CK, MG ####[place] [address] USAHypochromasiaSlightNormalThe [facility] Physician GroupComment on above: Performed By: #### BNP, HS TROP, CMP, SCAN CBC, CK, MG ####[place] [address] USALymphocytes (Bld) [#/Vol]1.7 10*3/uLNormal1.00-4.8The [facility] Physician GroupComment on above:Performed By: #### BNP, HS TROP, CMP, SCAN CBC, CK, MG ####[place] [address] USALymphocytes/100 WBC (Bld)13.7 %Normal.The [facility] Physician GroupComment on above:Performed By: #### BNP, HS TROP, CMP, SCAN CBC, CK, MG ####[address] (RBC) [Entitic mass]28.0 ouWsuipj52.7-34.3The [facility] Physician GroupComment on above:Performed By: #### BNP, HS TROP, CMP, SCAN CBC, CK, MG ####[address] (RBC) [Entitic vol]84.2 nBQvikxu86-350Unp [facility] Physician GroupComment on above:Performed By: #### BNP, HS TROP, CMP, SCAN CBC, CK, MG ####[place] [address] USAMean Corpuscular HGB Conc33.2 g/oGCxunuy98.0-35.0The [facility] Physician GroupComment on above: Performed By: #### BNP, HS TROP, CMP, SCAN CBC, CK, MG ####[place] [address] USAMonocytes (Bld) [#/Vol]1.7 10*3/uLHigh0.0-0.8The [facility] Physician GroupComment on above:Performed By: #### BNP, HS TROP, CMP, SCAN CBC, CK, MG ####[address] [address] USAMonocytes/100 WBC (Bld)20.54 %High0.00-20.00The [facility] Physician GroupComment on above:Result Comment: For adults in ED, MDW > 20.0 may be associated with a higher risk of sepsis during the first 12 hrs of hospital admissionPerformed By: #### BNP, HS TROP, CMP, SCAN CBC, CK, MG ####[address] [address] [place] Monocytes/100 WBC (Bld)14.0 %Normal.The [facility] Physician GroupComment on above:Performed By: #### BNP, HS TROP, CMP, SCAN CBC, CK, MG ####[place] [address] USANeutrophils (Bld) [#/Vol]8.4 10*3/uLHigh1.8-7.7The [facility] Physician GroupComment on above: Performed By: #### BNP, HS TROP, CMP, SCAN CBC, CK, MG ####[address] [address] USANeutrophils/100 WBC (Bld)69.1 % Normal.The [facility] Physician GroupComment on above:Performed By: #### BNP, HS TROP, CMP, SCAN CBC, CK, MG ####[place] [address] USANRBC%0.1 /100{WBC}Normal0-0.5The [facility] Physician GroupComment on above:Performed By: #### BNP, HS TROP, CMP, SCAN CBC, CK, MG ####[place] [address] USAPlatelet EstimateNormalNormalNormalThe [facility] Physician GroupComment on above: Performed By: #### BNP, HS TROP, CMP, SCAN CBC, CK, MG ####[place] [address] USAPlatelet mean volume (Bld) [Entitic vol]7.8 fLNormal6.3-10.7The [facility] Physician GroupComment on above: Performed By: #### BNP, HS TROP, CMP, SCAN CBC, CK, MG ####[place] [address] USAPlatelet MorphologyNormalNormal NormalThe [facility] Physician GroupComment on above:Result Comment: PERFORMED BY:[address] [place], [place] [phone] MEDICAL DIRECTORLLOYD NICHOLSON M.D.Performed By: #### BNP, HS TROP, CMP, SCAN CBC, CK, MG ####[place] [address] USAPlatelets (Bld) [#/Vol]395 10*3/gVAuocep065-876Rjv [facility] Physician GroupComment on above:Performed By: #### BNP, HS TROP, CMP, SCAN CBC, CK, MG ####[place] [address] USARBC (Bld) [#/Vol]4.07 10*6/uLNormal3.60-5.00The [facility] Physician GroupComment on above:Performed By: #### BNP, HS TROP, CMP, SCAN CBC, CK, MG ####[place] [address] USAWBC (Bld) [#/Vol]12.2 10*3/uLHigh3.8-11.6The [facility] Physician GroupComment on above:Performed By: #### BNP, HS TROP, CMP, SCAN CBC, CK, MG ####[place] [address] USASpecific gravity Test strip (U) [Rel density]Ordered By: Romel William on 14-75-1193Hwxqmgpm gravity (U) [Rel density]Specific gravity of Urine by Test strip1.001-1.030S[facility]by Memorial HospitalTroponin I High Sensitivityon 26-06-5203Lfrtmhmq I High Xcdzqheptct85.9 pg/mLHigh0.0-15.0The [facility] Physician GroupComment on above: Result Comment: PERFORMED BY:[address] [place], [place] [phone] MEDICAL DIRECTORLLOYD YANEZ M.D.Performed By: #### BNP, HS TROP, CMP, SCAN CBC, CK, MG ####[address] [place] [address] USATroponin I.cardiac [Mass/volume] in Serum or Plasma by Detection limit <= 0.01 ng/Ordered By: Romel William on 38-42-0242Gwngdirh I.cardiac DL <= 0.01 ng/mL [Mass/Vol] Troponin I.cardiac [Mass/volume] in Serum or Plasma by Detection limit <= 0.01 ng/High0.0-15.0Shelby Memorial HospitalUrinalysison 04-07-2024 Appearance (U)ClearNormalClearThe [facility] Physician GroupComment on above: Order Comment: Name Collection Type:: Clean-Voided MidstreamPerformed By: #### UA ####[address] [address] [place] Bilirubin,UrineNegativeNormalNegativeThe [facility] Physician GroupComment on above:Order Comment: Name Collection Type:: Clean-Voided MidstreamPerformed By: #### UA ####[address] [address] USAColor (U)ColorlessNormalYellowThe [facility] Physician GroupComment on above: Order Comment: Name Collection Type:: Clean-Voided MidstreamPerformed By: #### UA ####[address] [address] [place] Glucose Ql (U)NormalNormalNormToledo Hospitale [facility] Physician GroupComment on above: Order Comment: Name Collection Type:: Clean-Voided MidstreamPerformed By: #### UA ####[address] [address] [place] Ketones Ql (U)NegativeNormalNegativeThe [facility] Physician GroupComment on above:Order Comment: Name Collection Type:: Clean-Voided MidstreamPerformed By: #### UA ####[address] [address] USALeukocyte esterase Test strip Ql (U)NegativeNormalNegativeThe [facility] Physician GroupComment on above:Order Comment: Name Collection Type:: Clean- Voided MidstreamPerformed By: #### UA ####[address] [address] USANitrite,UrineNegativeNormalNegativeThe [facility] Physician GroupComment on above:Order Comment: Name Collection Type:: Clean-Voided MidstreamPerformed By: #### UA ####[address] [address] USAOccult Blood,UrineNegativeNormal NegativeThe [facility] Physician GroupComment on above:Order Comment: Name Collection Type:: Clean-Voided MidstreamResult Comment: PERFORMED BY:[address] [place], [place] [phone] MEDICAL DIRECTORLLOYD NICHOLSON M.D.Performed By: #### UA ####[address] [address] USApH (U)5.0 [pH]Normal 5.0-9.0The [facility] Physician GroupComment on above:Order Comment: Name Collection Type:: Clean-Voided MidstreamPerformed By: #### UA ####[address] [address] USAProtein,UrineNegative NormalNegativeThe [facility] Physician GroupComment on above:Order Comment: Name Collection Type:: Clean-Voided MidstreamPerformed By: #### UA ####[address] [address] USASpecificy Dumf[place],Urine1.783Ogzccm0.001-1.030The [facility] Physician GroupComment on above:Order Comment: Name Collection Type:: Clean-Voided MidstreamPerformed By: #### UA ####[facility] [place] [address] USAUrobilinogen,UrineNormalNormalNormalThe [facility] Physician GroupComment on above:Order Comment: Name Collection Type:: Clean-Voided MidstreamPerformed By: #### UA ####[facility] [address] [place] [address] USAUrobilinogen Test strip (U) [Mass/Vol]Ordered By: Romel William on 04-07-2024 Urobilinogen (U) [Mass/Vol]Urobilinogen [Mass/volume] in Urine by Test strip NormalShelby Memorial HospitalXR chest 2V*on 10-26-8820CW chest 2V* NormalThe [facility] Physician GrouppH Test strip (U)Ordered By: Romel William on 49-61-3531nL (U)pH of Urine by Test strip5.0-9.0S[facility] Memorial HospitalEstimated glomerular filtration rate (GFR) non- Americanon 50-14-8136DKP/1.73 sq M.predicted among non-blacks MDRD (S/P/Bld) [Vol rate/Area]Estimated glomerular filtration rate (GFR) non- AmericanLow>=60 mL/min/1.73m [address] [place], [place] [address]Laboratory - Chemistry and Chemistry - challengeon 87-28-1416Acwedyh [Mass/Vol]9.8 mg/dL8.5-10.1FWooster Community HospitalChloride [Moles/Vol]100 mmol/Y03-873XrqpogsjhShelby Memorial HospitalCO2 [Moles/Vol]31.8 mmol/L21.0-32.0S[facility] Memorial HospitalCreatinine [Mass/Vol]1.74 mg/dLHigh0.55-1.02Shelby Memorial HospitalGFR/1.73 sq M.predicted MDRD (S/P/Bld) [Vol rate/Area]35 mL/min/{1.73_m2} Low>=60 mL/min/1.[address]m [address] [place], [place] [address]Glucose [Mass/Vol]96 mg/oH91-154QawjnojrsShelby Memorial HospitalPotassium [Moles/Vol]3.8 mmol/L 3.5-5.1FNationwide Children's Hospitalodium [Moles/Vol]141 mmol/B243-594 Shelby Memorial HospitalUrea nitrogen [Mass/Vol]48.0 mg/dLHigh7.0-18.0 Shelby Memorial HospitalUrea nitrogen/Creatinine [Mass ratio]27.6 mg/mg [facility] Memorial Hospitalerum or plasma anion gap determinationon 18-65-9787Bacbt gap [Moles/Vol]Serum or plasma anion gap determinationShelby Memorial HospitalXR Sinuses [address] 24-76-4141[place] [address] XRay Report Signed Patient: RENUKA OWEN MR#: [id number] : 1950 Acct:[id number] Age/Sex: 73 / F ADM Date: 03/23/24 Loc: RAD Attending Dr: Chuck Cope M.D. Ordering Physician: Chuck Cope M.D. Date of Service: 03/23/24 Procedure(s): XR sinus min 3V Accession Number(s): [id number] cc: Sylvester Jacob D.O.; Chuck Cope M.D. [place] [address] Patient Name: RENUKA OWEN MRN: [id number] date: 1950 Sex: F Assigned Patient Location: [facility] Current Patient Location: Accession/Order Number: [id number] Exam Date: 03/23/2024 14:19 Report Date: 03/24/2024 15:50 At the request of: CHUCK COPE Procedure: XR sinus min 3V EXAMINATION: XR [...] frontal and maxillary sinuses. Electronically authenticated by: TAMY HOLM Date: 03/24/2024 15:50 Dictated By: Tamy Holm M.D. Signed By: 03/24/241551 DD/ 48 TD/TT: Hot Cell Technician:[facility]IAadiology, Radiologist, - 03/24/2024 [place] [address] XRay Report Signed Patient: RENUKA OWEN MR#: [id number] : 1950 Acct:[id number] Age/Sex: 73 / F ADM Date: 03/23/24 Loc: RAD Attending Dr: Chuck Cope M.D. Ordering Physician: Chuck Cope M.D. Date of Service: 03/23/24 Procedure(s): XR sinus min 3V Accession Number(s): [id number] cc: Sylvester Jacob D.O.; Chuck Cope M.D. [facility] [place] [address] Patient Name: RENUKA OWEN MRN: [id number] date: 1950 Sex: F Assigned Patient Location: [facility] Current Patient Location: Accession/Order Number: [id number] Exam Date: 03/23/2024 14:19 Report Date: 03/24/2024 15:50 At the request of: CHUCK COPE Procedure: XR sinus min 3V EXAMINATION: XR [...] frontal and maxillary sinuses. Electronically authenticated by: TAMY HOLM Date: 03/24/2024 15:50 Dictated By: Tamy Holm M.D. Signed By: 03/24/241551 DD/ 48 TD/TT: Hot Cell Technician: ROHITH HealthcareRadiology Study observation (narrative)NOM HealthcareXR Sinuses 3 ViewsOrdered By: Radiologist Radiology on 81-78-7675FW[facility] Work Phone: XR lumbar spine 2-3V*on 92-29-9391AM lumbar spine 2-3V*NormalThe [facility] Physician GroupCNPNon 89-82-8700XLXOAkymbwzlz (HEMTSA) RENUKA OWEN ([id number]) 1950 F Date Time Provider Department 01/06/24 TRINY MART HEMTSYissel During your visit today, we recorded the following information about you: Triny Mart RN 01/06/2024 11:46 AM Signed Pt calls to ask when her mammogram is due. Pt's record reviewed. Last Mamm done on 02/08/23 @ [facility]. 12 month f/u recommended. Order for Mamm faxed to [facility] on 06/22/23. Pt notified of the above. Advised she call [facility] to schedule. Pt verbalizes understanding and agrees. [...] 06/20/2020 Encounter Status:Closed by TRINY MART on 01/06/24NoProMedica Flower HospitalEstimated glomerular filtration rate (GFR) non- Americanon 41-86-3325TKR/1.73 sq M.predicted among non-blacks MDRD (S/P/Bld) [Vol rate/Area]36 mL/min/{1.73_m2}Low>=60[facility] HospitalLaboratory - Chemistry and Chemistry - challengeon 46-86-9223Yxlrmjx [Mass/Vol]9.7 mg/dL 8.5-10.1FWooster Community HospitalChloride [Moles/Vol]102 mmol/L98-107 [facility] HospitalCO2 [Moles/Vol]29.7 mmol/L21.0-32.0[facility] HospitalCreatinine [Mass/Vol]1.43 mg/dLHigh0.55-1.02[facility] HospitalGFR/1.73 sq M.predicted MDRD (S/P/Bld) [Vol rate/Area]44 mL/min/{1.73_m2}Low>=60[facility] HospitalGlucose [Mass/Vol]96 mg/lM99-270CkpmnuefiShelby Memorial HospitalMagnesium [Mass/Vol]2.5 mg/dLHigh 1.8-2.4FWooster Community HospitalPotassium [Moles/Vol]4.2 mmol/L3.5-5.1 [facility] Hospitalodium [Moles/Vol]140 mmol/S198-228ThaezbsncShelby Memorial HospitalTSH Qn2.005 m[IU]/L0.358-3.740[facility] HospitalUrea nitrogen [Mass/Vol]61.0 mg/dLHigh7.0-18.0[facility] HospitalUrea nitrogen/Creatinine [Mass ratio]42.7 mg/mgMemorial Health System Marietta Memorial Hospitalerum or plasma anion gap determinationon 84-25-3135Gfvkb gap [Moles/Vol] 12.5 mmol/LFWooster Community HospitalBasophils Auto (Bld) [#/Vol]on 40-12-2650Ktbnecocb (Bld) [#/Vol]0.05 10*3/uL<0.11[facility] HospitalBasophils/100 WBC Auto (Bld)on 66-83-3909Lnbbmiawe/100 WBC (Bld)0.8 % [facility] HospitalBlood manual differential comment interpretation narrativeon 59-93-0285Aiarnl differential comment Mckay (Bld) [Interp]AutoShelby Memorial HospitalEosinophils/100 WBC Auto (Bld)on 88-28-2590Yezrlyespfs/100 WBC (Bld)5.8 %[facility] Erythrocyte distribution width Auto (RBC) [Ratio]on 31-17-2942Rtmsiuyrqtd distribution width (RBC) [Ratio]14.9 %11.5-15.0[facility] Hematocrit Auto (Bld) [Volume fraction]on 93-64-0084Tkidfcelrg (Bld) [Volume fraction]36.0 %36.0-46.0[facility] HospitalHemoglobin [Mass/volume] in Bloodon 83-38-8686Daepaotvxq (Bld) [Mass/Vol]11.4 g/dL11.5-15.5 [facility] HospitalLaboratory - Chemistry and Chemistry - challengeon 39-29-5193Azqsmrk [Mass/Vol]4.4 g/dL3.9-4.9[facility] HospitalALP [Catalytic activity/Vol]67 U/A40-675ErfjxmcxqShelby Memorial HospitalALT [Catalytic activity/Vol]8 U/L7-38[facility] HospitalAST [Catalytic activity/Vol]16 U/U51-32PzraynrkxShelby Memorial HospitalBilirubin [Mass/Vol]0.4 mg/dL0.2-1.3FWooster Community HospitalCalcium [Mass/Vol] 10.6 mg/dL8.5-10.2FWooster Community HospitalChloride [Moles/Vol]99 mmol/L 97-105[facility] HospitalCO2 [Moles/Vol]30 mmol/L76-17XjerculkxShelby Memorial HospitalCreatinine [Mass/Vol]1.29 mg/dL0.58-0.96[facility] HospitalGlucose [Mass/Vol]109 mg/eI81-32AgwhkhuhlShelby Memorial HospitalComment on above:The [place] Diabetes Association (ADA) provides guidance for cutoff [...] diabetes.Reference: Standardsof Medical Care in Diabetes 2016, [place] Diabetes Association. Diabetes Care. 2016.39(Suppl 1).Potassium [Moles/Vol]4.8 mmol/L 3.7-5.1FWooster Community HospitalProtein [Mass/Vol]7.3 g/dL6.3-8.0 [facility] Hospitalodium [Moles/Vol]138 mmol/V236-460RkylqveheShelby Memorial HospitalUrea nitrogen [Mass/Vol]45 mg/dL7-21[facility] HospitalLaboratory - Hematology and Cell countson 67-46-6920Cxhiivxvdpe (Bld) [#/Vol]0.37 10*3/uL<0.46[facility] HospitalImmature granulocytes/100 WBC (Bld)0.2 %[facility] HospitalLeukocytes [#/volume] corrected for nucleated erythrocytes in Blood by Automated counon 85-47-2625DMH corrected for nucl RBC Auto (Bld) [#/Vol]6.43 k/uL3.70-11.00 [facility] HospitalLymphocytes Auto (Bld) [#/Vol]on 06-22-2023 Lymphocytes (Bld) [#/Vol]1.86 10*3/uL1.00-4.00[facility] Lymphocytes/100 WBC Auto (Bld)on 86-69-1101Kcpmcxjbhrc/100 WBC (Bld)28.9 % [facility] HospitalMCH Auto (RBC) [Entitic mass]on 42-51-4450VZD (RBC) [Entitic mass]27.5 pg26.0-34.0[facility] HospitalMCHC Auto (RBC) [Mass/Vol]on 30-66-9793WRVS (RBC) [Mass/Vol]31.7 g/dL30.5-36.0[facility] HospitalMCV Auto (RBC) [Entitic vol]on 42-02-3583LOV (RBC) [Entitic vol]86.7 fL80.0-100.0[facility] HospitalMonocytes Auto (Bld) [#/Vol]on 33-06-2001Rvfreospz (Bld) [#/Vol]0.72 10*3/uL<0.87[facility] HospitalMonocytes/100 WBC Auto (Bld)on 18-65-4035Hjrkvdsuf/100 WBC (Bld)11.2 %[facility] Medical CenterNeutrophils Auto (Bld) [#/Vol]on 76-45-2125Hmtflawnwmv (Bld) [#/Vol]3.42 10*3/uL1.45-7.50[facility] HospitalNeutrophils/100 WBC Auto (Bld)on 72-10-0698Hbbuffqkquu/100 WBC (Bld)53.1 %[facility] HospitalNo Panel Informationon 28-30-3274LB 27.2922.2 U/mL<38.6FWooster Community HospitalComment on above:The CA27.29 test was performed using the Siemens Likeastoreaur XP chemiluminometric immunoassay method. Results obtained with different assay methods or kits cannot be used interchangeably.Estimated GFR (CKD-EPI)44 mL/min/1.73m???>=60[facility] HospitalComment on above:Estimated Glomerular Filtration Rate [...] reflect actual GFR. Immature Granulocyte # (Auto)<0.03 k/uL<0.10[facility] Nucleated RBC Auto (Bld) [#/Vol]on 97-67-3007Vndzrdhin RBC (Bld) [#/Vol]10*3/uL <0.01[facility] HospitalNucleated erythrocytes [Presence] in Blood by Automated counton 97-06-1045Klrzhyzop RBC Auto Ql (Bld)0.0 /100{WBC} [facility] HospitalPlatelet mean volume Auto (Bld) [Entitic vol]on 75-22-3878Uukrekdw mean volume (Bld) [Entitic vol]9.2 fL9.0-12.7FWooster Community HospitalPlatelets Auto (Bld) [#/Vol]on 62-49-3492Awvenvtvy (Bld) [#/Vol]286 10*3/mQ026-751XythtaechShelby Memorial HospitalRBC Auto (Bld) [#/Vol] on 94-98-0208KDR (Bld) [#/Vol]4.15 10*6/uL3.90-5.20[facility] Hospitalerum or plasma anion gap determinationon 89-06-1558Stglc gap [Moles/Vol]9 mmol/L9-18FWooster Community HospitalProgress Noteson 04-22-2023 Youth Program Director Authentication Interface Message TextEMERGENCY TRIAGE, TREAT AND TRANSPORT (ET3) DOCUMENTATION OF TELEHEALTH VISIT Date / Time: 03/06/2023599 Name: Renuka Owen : 1950 SSN: (Not on file) EMS Agency: [facility] [x] Verbal consent obtained [] Implied [...] Same ET3 Encounter Completed by: Hazel Willson [facility] Alanine aminotransferase [Enzymatic activity/volume] in Serum or PlasmaOrdered By: Jared Louis on 07-69-1839LRF [Catalytic activity/Vol]12 U/L7-52 [facility] HospitalAlbumin [Mass/volume] in Serum or Plasma by Bromocresol green (BCG) dye binding methoOrdered By: Jared Louis on 43-07-6777Ekktdyd BCG dye [Mass/Vol]3.4 g/dL3.5-5.7FWooster Community HospitalAlkaline phosphatase [Enzymatic activity/volume] in Serum or PlasmaOrdered By: Jared Louis on 34-50-7764CUS [Catalytic activity/Vol]45 U/L34-104 [facility] HospitalAspartate aminotransferase [Enzymatic activity/volume] in Serum or PlasmaOrdered By: Jared Louis on 03-65-7284LKW [Catalytic activity/Vol]14 U/S63-87SgzweiierShelby Memorial HospitalBasophils Auto (Bld) [#/Vol]Ordered By: Jared Louis on 04-16-2023 Basophils (Bld) [#/Vol]0.0 10*3/uL0.0-0.2FWooster Community Hospital Basophils/100 WBC Auto (Bld)Ordered By: Jared Louis on 04-16-2023 Basophils/100 WBC (Bld)0.4 %.[facility] HospitalBilirubin.total [Mass/volume] in Serum or PlasmaOrdered By: Jared Louis on 04-16-2023 Bilirubin [Mass/Vol]0.6 mg/dL0.3-1.0[facility] HospitalCalcium [Mass/volume] in Serum or PlasmaOrdered By: Jared Louis 04-16-2023 Calcium [Mass/Vol]9.8 mg/dL8.6-10.3FWooster Community HospitalCarbon dioxide, total [Moles/volume] in Serum or PlasmaOrdered By: Jared Louis 10-02-1909WJ6 [Moles/Vol]32.5 mmol/L21.0-31.0[facility] HospitalChloride [Moles/volume] in Serum or PlasmaOrdered By: Jared Louis 37-94-0279Tqlyzlkb [Moles/Vol]101 mmol/X89-652TtgznctxsShelby Memorial HospitalCreatinine [Mass/volume] in Serum or PlasmaOrdered By: Jared Louis on 96-74-9004Iiaiagilui [Mass/Vol]0.94 mg/dL0.60-1.20[facility] HospitalEosinophils Auto (Bld) [#/Vol]Ordered By: Jared Louis on 41-87-0681Ojolwqxxpnp (Bld) [#/Vol]0.0 10*3/uL0.0-0.45[facility] HospitalEosinophils/100 WBC Auto (Bld)Ordered By: Jared Louis on 30-50-0484Qkbqxrggodm/100 WBC (Bld)0.3 %.[facility] HospitalErythrocyte distribution width Auto (RBC) [Ratio]Ordered By: Jared Louis on 73-09-3831Gjjvzvqowhx distribution width (RBC) [Ratio] 15.0 %11.9-15.3FWooster Community HospitalGlobulin Calc (S) [Mass/Vol] Ordered By: Jared Louis on 92-65-9016Licmtnbw (S) [Mass/Vol]2.8 g/dL [facility] HospitalGlucose [Mass/volume] in Serum or PlasmaOrdered By: Jared Loius on 33-36-5272Qsjywyv [Mass/Vol]85 mg/zO28-432NzmfcrwqzShelby Memorial HospitalComment on above:ADA recommended reference rangeRandom Glucose Reference Range is dependent on time and content of last meal. Glucose of more than 200 mg/dL in a nonstressed, ambulatory subject supports the diagnosisof Diabetes Mellitus.Hematocrit Auto (Bld) [Volume fraction]Ordered By: Jared Louis on 26-54-3652Sopepqwjbz (Bld) [Volume fraction]33.2 % 34.0-46.4FWooster Community HospitalHemoglobin [Mass/volume] in Blood Ordered By: Jared Louis on 31-80-1384Evbtucxttx (Bld) [Mass/Vol]11.0 g/dL11.8-15.4FWooster Community HospitalLeukocytes [#/volume] corrected for nucleated erythrocytes in Blood by Automated counOrdered By: Jared Louis on 44-46-2928UXE corrected for nucl RBC Auto (Bld) [#/Vol]9.7 10*3/uL 3.8-11.6FWooster Community HospitalLymphocytes Auto (Bld) [#/Vol]Ordered By: Jared Louis on 02-62-6739Ocdwuagafkx (Bld) [#/Vol]1.8 10*3/uL 1.00-4.8[facility] HospitalLymphocytes/100 WBC Auto (Bld)Ordered By: Jared Louis on 17-31-8322Kzucclaqywv/100 WBC (Bld)18.4 %.[facility] HospitalH Auto (RBC) [Entitic mass]Ordered By: Jared Louis on 57-00-1689BGB (RBC) [Entitic mass]27.4 pg24.7-34.3FWooster Community HospitalMCHC Auto (RBC) [Mass/Vol]Ordered By: Jared Louis on 12-32-5185IZPP (RBC) [Mass/Vol]33.0 g/dL32.0-35.0[facility] HospitalMCV Auto (RBC) [Entitic vol]Ordered By: Jared Louis on 56-84-5862SEH (RBC) [Entitic vol]83.2 dJ06-919KhemmpsrjShelby Memorial HospitalMonocytes Auto (Bld) [#/Vol]Ordered By: Jared Louis on 48-85-5729Hmhtlkiux (Bld) [#/Vol]1.4 10*3/uL0.0-0.8[facility] HospitalMonocytes/100 WBC Auto (Bld)Ordered By: Jared Louis on 04-16-2023 Monocytes/100 WBC (Bld)13.9 %.[facility] HospitalNeutrophils Auto (Bld) [#/Vol]Ordered By: Jared Louis on 44-59-0559Dgbsjyxzqzo (Bld) [#/Vol]6.5 10*3/uL1.8-7.7FWooster Community HospitalNeutrophils/100 WBC Auto (Bld)Ordered By: Jared Louis on 41-98-8367Yfovcszlslw/100 WBC (Bld)67.0 %.[facility] HospitalNo Panel InformationOrdered By: Jared Louis on 64-27-3168Eumjfybfu GFR (CKD-EPI)> 60.0 mL/MinShelby Memorial HospitalPharmacy Creatinine Clearance (Chem47.09[facility] HospitalNucleated erythrocytes [Presence] in Blood by Automated countOrdered By: Jared Louis on 59-27-3561Qmlnbrvku RBC Auto Ql (Bld) 0.1 /100{WBC}0-0.5FWooster Community HospitalPlatelet mean volume Auto (Bld) [Entitic vol]Ordered By: Jared Louis on 42-38-9659Mikilerh mean volume (Bld) [Entitic vol]7.7 fL6.3-10.7FWo[facility] Community Hospital Platelets Auto (Bld) [#/Vol]Ordered By: Jared Louis on 04-16-2023 Platelets (Bld) [#/Vol]228 10*3/yE954-651XzjjinmyfShelby Memorial Hospital Potassium [Moles/volume] in Serum or PlasmaOrdered By: Jared Louis on 91-85-4486Rbligzhsl [Moles/Vol]3.9 mmol/L3.5-5.1FWooster Community HospitalPrealbumin [Mass/volume] in Serum or PlasmaOrdered By: Jared Louis on 69-10-9636Kcvqghokfl [Mass/Vol]23.4 mg/dL17.0-34.0[facility] HospitalProtein [Mass/volume] in Serum or PlasmaOrdered By: Jared Louis on 65-89-0819Cwrgktc [Mass/Vol]6.2 g/dL6.4-8.9[facility] HospitalRBC Auto (Bld) [#/Vol]Ordered By: Jared Louis on 44-80-9632MCY (Bld) [#/Vol]3.99 10*6/uL3.60-5.00[facility] Hospitalerum or plasma albumin/globulin mass ratioOrdered By: Jared Louis on 15-58-6680Jrrarsu/Globulin [Mass ratio]1.2 {ratio}[facility] Hospitalerum or plasma anion gap determinationOrdered By: Jared Louis on 53-64-5362Qaano gap [Moles/Vol]12.4 mmol/L6.0-15.0 [facility] Hospitalodium [Moles/volume] in Serum or PlasmaOrdered By: Jared Louis on 16-57-8422Udshwi [Moles/Vol]142 mmol/I103-338 [facility] HospitalUrea nitrogen [Mass/volume] in Serum or Plasma Ordered By: Jared Louis on 94-93-4831Ssdm nitrogen [Mass/Vol]34 mg/dL 7-25[facility] HospitalWBC Auto (Bld) [#/Vol]Ordered By: Jared Louis on 62-89-7952VCL (Bld) [#/Vol]9.7 10*3/uL3.8-11.6FWooster Community HospitalBasophils Auto (Bld) [#/Vol]Ordered By: Devin Moreau on 03-26-2023 Basophils (Bld) [#/Vol]0.1 10*3/uL0.0-0.2FWo[facility] Hospital Basophils/100 WBC Auto (Bld)Ordered By: Devin Moreau on 74-76-1706Mcztwfczl/100 WBC (Bld)1.0 %.[facility] HospitalCalcium [Mass/volume] in Serum or PlasmaOrdered By: Devin Moreau on 84-39-4337Xyyxdmu [Mass/Vol]9.4 mg/dL8.6-10.3 [facility] HospitalCarbon dioxide, total [Moles/volume] in Serum or PlasmaOrdered By: Devin Moreau on 46-53-1594LM9 [Moles/Vol]30.1 mmol/L21.0-31.0 [facility] HospitalChloride [Moles/volume] in Serum or Plasma Ordered By: Devin Moreau on 29-23-1521Laszusfk [Moles/Vol]102 mmol/L98-107 [facility] HospitalCreatinine [Mass/volume] in Serum or Plasma Ordered By: Devin Moreau on 95-08-5407Kuqyuqmvsb [Mass/Vol]1.19 mg/dL0.60-1.20 [facility] HospitalEosinophils Auto (Bld) [#/Vol]Ordered By: Devin Moreau on 32-26-4707Dnjzokcqngp (Bld) [#/Vol]0.3 10*3/uL0.0-0.45[facility] HospitalEosinophils/100 WBC Auto (Bld)Ordered By: Devin Moreau on 49-34-0105Xerkzjtvvfc/100 WBC (Bld)4.7 %.[facility] Erythrocyte distribution width Auto (RBC) [Ratio]Ordered By: Devin Moreau on 69-91-3100Tvxdlugzabw distribution width (RBC) [Ratio]15.2 %11.9-15.3FWooster Community HospitalGlucose [Mass/volume] in Serum or PlasmaOrdered By: Devin Moreau on 38-30-1763Jzhdhop [Mass/Vol]95 mg/qU74-196NmruewzpyShelby Memorial HospitalComment on above:ADA recommended reference rangeRandom Glucose Reference Range is dependent on time and content of last meal. Glucose of more than 200 mg/dL in a nonstressed, ambulatory subject supports the diagnosisof Diabetes Mellitus.Hematocrit Auto (Bld) [Volume fraction]Ordered By: Devin Moreau on 17-47-9469Mfdiavtavd (Bld) [Volume fraction]37.7 %34.0-46.4FWooster Community HospitalHemoglobin [Mass/volume] in BloodOrdered By: Devin Moreau on 13-74-1762Dhrggjgtpd (Bld) [Mass/Vol]12.2 g/dL11.8-15.4FWooster Community HospitalLeukocytes [#/volume] corrected for nucleated erythrocytes in Blood by Automated counOrdered By: Devin Moreau on 95-24-0933TYG corrected for nucl RBC Auto (Bld) [#/Vol]6.0 10*3/uL3.8-11.6FW[facility] Hospital Lymphocytes Auto (Bld) [#/Vol]Ordered By: Devin Moreau on 34-17-8896Sbksmrxgeyn (Bld) [#/Vol]1.7 10*3/uL1.00-4.8[facility] HospitalLymphocytes/100 WBC Auto (Bld)Ordered By: Devin Moreau on 24-34-3198Tgzqoajyqqg/100 WBC (Bld)28.9 %.[facility] HospitalMCH Auto (RBC) [Entitic mass]Ordered By: Devin Moreau on 08-80-4361FCK (RBC) [Entitic mass]27.4 pg24.7-34.3FWooster Community HospitalMCHC Auto (RBC) [Mass/Vol]Ordered By: Devin Moreau on 72-54-5242EWGI (RBC) [Mass/Vol]32.4 g/dL32.0-35.0[facility] HospitalMCV Auto (RBC) [Entitic vol]Ordered By: Devin Moreau on 66-15-9268HTX (RBC) [Entitic vol]84.5 lJ93-070AvafnbgsaShelby Memorial HospitalMonocytes Auto (Bld) [#/Vol]Ordered By: Devin Moreau on 08-61-3365Kzztzgcta (Bld) [#/Vol]0.6 10*3/uL 0.0-0.8[facility] HospitalMonocytes/100 WBC Auto (Bld)Ordered By: Devin Moreau on 59-20-1931Iyxiwwopx/100 WBC (Bld)9.8 %.[facility] HospitalNeutrophils Auto (Bld) [#/Vol]Ordered By: Devin Moreau on 03-26-2023 Neutrophils (Bld) [#/Vol]3.3 10*3/uL1.8-7.7FW[facility] Hospital Neutrophils/100 WBC Auto (Bld)Ordered By: Devin Moreau on 03-26-2023 Neutrophils/100 WBC (Bld)55.6 %.[facility] HospitalNo Panel InformationOrdered By: Devin Moreau on 45-77-9994Wisbwxhdv GFR (CKD-EPI)48.279 mL/MinShelby Memorial HospitalPharmacy Creatinine Clearance (ChemN/A [facility] HospitalNucleated erythrocytes [Presence] in Blood by Automated countOrdered By: Devin Moreau on 96-02-3300Arluwtfpb RBC Auto Ql (Bld) 0.1 /100{WBC}0-0.5FWooster Community HospitalPlatelet mean volume Auto (Bld) [Entitic vol]Ordered By: Devin Moreau on 11-26-3154Rhicvgyd mean volume (Bld) [Entitic vol]8.4 fL6.3-10.7FWooster Community HospitalPlatelets Auto (Bld) [#/Vol]Ordered By: Devin Moreau on 52-28-9024Gpgeqzejr (Bld) [#/Vol]242 10*3/vB212-812PhgtitduzShelby Memorial HospitalPotassium [Moles/volume] in Serum or PlasmaOrdered By: Devin Moreau on 25-35-8748Adrgjqime [Moles/Vol]4.4 mmol/L 3.5-5.1FWooster Community HospitalRBC Auto (Bld) [#/Vol]Ordered By: Devin Moreau on 76-82-5836DVO (Bld) [#/Vol]4.46 10*6/uL3.60-5.00[facility] Hospitalerum or plasma anion gap determinationOrdered By: Devin Moreau on 60-51-5014Hpjzv gap [Moles/Vol]12.3 mmol/L6.0-15.0[facility] Hospitalodium [Moles/volume] in Serum or PlasmaOrdered By: Devin Moreau on 33-39-9610Lucsbb [Moles/Vol]140 mmol/X904-983NztwzsusnShelby Memorial Hospital Urea nitrogen [Mass/volume] in Serum or PlasmaOrdered By: Devin Moreau on 22-30-8317Bqbq nitrogen [Mass/Vol]38 mg/dL7-25[facility] WBC Auto (Bld) [#/Vol]Ordered By: Devin Moreau on 65-08-8300WHK (Bld) [#/Vol]6.0 10*3/uL3.8-11.6FWooster Community HospitalHuman papilloma virus 16+18+31+33+35+39+45+51+52+56+58+59+66+68 DNA [Presence] in CerOrdered By: Radha Moreau on 81-42-9204VJT 16+18+31+33+35+39+45+51+52+56+58+59+66+68 DNA Probe+sig amp Ql (Cvx)NegativeNegativeShelby Memorial HospitalComment on above:This nucleic acid amplification test detects fourteen high-risk HPV types (16,18,31,33,35,39,45,51,52,56,58,59,66,68)without differentiation.Performed at: [facility] [place], [place] [id number] Director: Estella Broderick MD, Phone: [phone] at: =G - [facility] [address] [place], [place] [id number] Director: Estella Broderick MD, Phone: [phone] Panel InformationOrdered By: Radha Moreau on 30-46-4908HK Pap w/Ct-Ng & HPV Rflx (Off-SiteNote.[facility] HospitalComment on above:TESTS RESULT FLAG UNITS REF RANGE LAB Clinician Provided Cytology Information Source.............Vagina No. of containers..01 ThinPrep VialDIAGNOSIS: 01 NEGATIVE FOR INTRAEPITHELIAL LESION OR MALIGNANCY.Specimen adequacy: 01 Satisfactory for evaluation. Endocervical component may not be distinguished in cases of atrophy.Performed by: Rolly Castellano, Tower Helper (ASCP). 01Note: Note 01 The Pap smear [...] High <-Panic Low,>- Panic High,A-Abnormal,AA-Critical Abnormal Performed at:[address] [place] [id number] Estella Broderick MD, Shwsuneppv - DIPSTICKon 53-93-0756Vhjrwxfvei (U) clearNoClue App [employer] Other Bilirubin Ql (U)NegativeClue App [employer] Other Color (U)yellowClue App [employer] Other Glucose Ql (U)Novant HealthClue App [employer] Other Hemoglobin Ql (U)LakalaClue App [employer] Other Ketones Ql (U)NegativeAXSionics Other Leukocyte esterase Test strip Ql (U)traceNoClue App [employer] Other Nitrite Ql (U)NegativeClue App [employer] Other pH (U)6.0 [pH][employer] Other Protein Ql (U)+[employer] Other Specific gravity (U) [Rel density]1.010[facility] [employer] Other Urobilinogen (U) [Mass/Vol]off chartMilledgeville [employer] Other Urinalysis - DIPSTICKNomercy hospital south, [facility] [employer] Other Creatinine (Bld) [Mass/Vol]Ordered By: Devin Moreau on 22-27-2365Vrxlkgkjuh [Mass/Vol]0.9 mg/dL0.6-1.3FWooster Community Hospital Comment on above:ER/ESD physician is notified/shown all ISTAT results.Critical values may be confirmed by laboratorytesting ifdeemed necessary by ER attending doctor.No Panel InformationOrdered By: Devin Moreau on 31-54-7403Vjydbgd Estimated GFR (eGFR)> 60.0S[facility] HospitalXR dexa axial skeletonon 48-29-3542CS dexa axial skeletonNorth [employer] Other echocardiogramon 60-87-6395AmhrfywdgodgqppwVaqvp [facility] [address] [place] [address], [address] [place] [address] TRANSTHORACIC ECHOCARDIOGRAM REPORT Patient Name: RENUKA Dey Reading Physician: [id number] Bryce Hendrickson MD, [facility] Study Date: 01/25/2023 Referring BRYCE HENDRICKSON Physician: MRN/PID: [id number] PCP: Sylvester Jacob Accession/Order#: [id number] [facility] Location: Date of : 1950 Fellow: Gender: F Nurse: Admit Date: Wound/Ostomy Clinical Nurse Specialist: Светлана Mantilla RD, RVT Height: 154.94 cm CC Report to: Weight: 71.22 kg Study Type: Echocardiogram BSA: 1.70 m2 Blood Pressure: 120 /76 mmHg Diagnosis/ICD: I34.0-Nonrheumatic mitral (valve) insufficiency Indication: Abnormal EKG-LBBB, Chest Pain, HTN, Overweight Procedure/CPT: Echo Complete w Full Doppler-[id number] Study Detail: The following Echo studies were [...] 0.7 m/s (0.6-0.9m/s) PV Max P.8 mmHg [id number] Bryce Hendrickson MD, FACC Electronically signed on 01/26/2023 at 12:50:05 PM Final NormalMt. San Rafael HospitalPROF CHEM 8 (BAS METB)on 08-18-2022 Anion gap [Moles/Vol]9.9 mmol/LNormalPremier Health Atrium Medical CenterComment on above: Performed By: #### HSTROPN #### [facility] [address] [place] [address] Dr. Isabell PeñaCalcium [Mass/Vol]9.3 mg/dLNormal8.5-10.1[facility] Comment on above:Performed By: #### HSTROPN #### [facility] [address] [address] [address] Isabell PeñaChloride [Moles/Vol]103 mmol/XHvkabx45-993[facility] Comment on above:Performed By: #### HSTROPN #### [facility] [address] [place] [address] Dr. Isabell PeñaCO2 [Moles/Vol]31.7 mmol/CNzpkfq91.0-32.0[facility] Comment on above:Performed By: #### HSTROPN #### [facility] [address] [place] [address] Dr. Isabell PeñaCreatinine [Mass/Vol]0.98 mg/dLNormal0.55-1.02The [facility] HospitalComment on above:Performed By: #### HSTROPN #### [facility] [address] [place] [address] Dr. Isabell PerezGFR-AF BANGLADESHI>60Normal>=60The [facility] HospitalComment on above:Performed By: #### HSTROPN #### [facility] [address] [place] [address] Dr. Isabell PerezGFR-NON AF IQRTGNQO86 mL/min/1.93j6Ofsarwjlpp low>=60The [facility] Regional HospitalComment on above:Performed By: #### HSTROPN #### [facility] [address] [place] [address] Dr. Isabell PeñaGlucose [Mass/Vol]111 mg/dLCritically cxpu00-572Bfc [facility] HospitalComment on above:Performed By: #### HSTROPN #### [facility] [address] [place] [address] Dr. Isabell PeñaPotassium [Moles/Vol]3.6 mmol/LNormal3.5-5.1[facility] Comment on above:Performed By: #### HSTROPN #### [facility] [address] [place] [address] Dr. Isabell PeñaSodium [Moles/Vol]141 mmol/JMaatdf887-160LtoPremier Health Atrium Medical Center Comment on above:Performed By: #### HSTROPN #### [facility] [address] [place] [address] Dr. Isabell PeñaUrea nitrogen [Mass/Vol]20.0 mg/dLCritically high7.0-18.0The [facility] HospitalComment on above:Performed By: #### HSTROPN #### [facility] [address] [address] [address] Isabell Barrera nitrogen/Creatinine [Mass ratio]20.4 mg/mgSamaritan HospitalComment on above:Performed By: #### HSTROPN #### [facility] [address] [address] [address] Isabell Matthews CARDIAC STRESS/REST INJECTIONon [id number] CARDIAC STRESS/REST INJECTIONMRN: [id number] Patient Name: RENUKA OWEN STUDY: MYOCARDIAL PERFUSION STRESS TEST WITH LEXISCAN Performing facility: [facility], [address] [place] [address], [address], [place] [address] [facility] Provider: Bryce Hendrickson MD, [facility] PCP: Dr. Roseanna Jacob Supervising provider: Bryce Hendrickson MD, FACC INDICATION: Chest Pain; LBBB HISTORY: Gender: F; Age: 71 y/o ; Height: 0 cm; Weight: 0 kg. Abnormal EKG; HTN; Chest Pain; Denies smoking. COMPARISON: No comparison. ACCESSION NUMBER(S): [id number]; [id number]; [id number] ORDERING CLINICIAN: BRYCE HENDRICKSON TECHNIQUE: ONE DAY [...] for comparison. Electronically signed by: BRYCE HENDRICKSON MDCommunity Health SystemsNo Panel Informationon 53-68-9546LbencpEC-[facility] DO Work Phone: Urinalysis - DIPSTICKon 30-67-1838Acvemdpiby (U)cloudy [employer] Other Bilirubin Ql (U)smallWeGush Other Color (U)yellowClue App [employer] Other Glucose Ql (U)NegativeSeat 14A [employer] Other Hemoglobin Ql (U)largeWeGush Other Ketones Ql (U)[employer] Other Leukocyte esterase Test strip Ql (U)[employer] Other Nitrite Ql (U)NegativeWeGush Other pH (U)8.5 [pH][employer] Other Protein Ql (U)[employer] Other Specific gravity (U) [Rel density]1.010[place] [employer] Other Urobilinogen (U) [Mass/Vol]0.2 mg/dLClue App [employer] Other Urinalysis - DIPSTICKWeGush Other cbC W Auto Differential panel (Bld)on 05-19-2022 Basophils (Bld) [#/Vol]0.09 10*3/uL<0.11 k/uLWvumedicine Barnesville HospitalBasophils/100 WBC (Bld)0.8 %[facility] HospitalDifferential cell count method Nom (Bld)AutoCleveland ClinicEosinophils (Bld) [#/Vol]0.26 10*3/uL<0.46 k/uLWvumedicine Barnesville Hospital Eosinophils/100 WBC (Bld)2.3 %[facility] HospitalErythrocyte distribution width (RBC) [Ratio]16.4 %High11.5 - 15.0 %[facility] HospitalHematocrit (Bld) [Volume fraction]36.6 %36.0 - 46.0 %[facility] HospitalHemoglobin (Bld) [Mass/Vol]11.6 g/dL 11.5 - 15.5 g/dLWvumedicine Barnesville HospitalImmature granulocytes (Bld) [#/Vol]0.05 10*3/uL <0.10 k/uLWvumedicine Barnesville HospitalImmature granulocytes/100 WBC (Bld)0.4 %[facility] HospitalLymphocytes (Bld) [#/Vol]1.87 10*3/uL1.00 - 4.00 k/uLWvumedicine Barnesville Hospital Lymphocytes/100 WBC (Bld)16.3 %[facility] CenterH (RBC) [Entitic mass]28.0 pg 26.0 - 34.0 pgCSCCI Hospital LimaHC (RBC) [Mass/Vol]31.7 g/dL30.5 - 36.0 g/dL [facility] Medical CenterV (RBC) [Entitic vol]88.4 fL80.0 - 100.0 fLCAccess Hospital Dayton Monocytes (Bld) [#/Vol]1.17 10*3/uLHigh<0.87 k/uLWvumedicine Barnesville HospitalMonocytes/100 WBC (Bld)10.2 %[facility] HospitalNeutrophils (Bld) [#/Vol]8.04 10*3/uLHigh1.45 - 7.50 k/uLWvumedicine Barnesville HospitalNeutrophils/100 WBC (Bld)70.0 %[facility] Nucleated RBC (Bld) [#/Vol]<0.01 k/uLWvumedicine Barnesville HospitalNucleated RBC/100 WBC (Bld) [Ratio]0.0 /100 WBCDunkirk ClinicPlatelet mean volume (Bld) [Entitic vol]9.4 fL9.0 - 12.7 fLCleveland ClinicPlatelets (Bld) [#/Vol]389 10*3/uL150 - 400 k/uL [facility] HospitalRBC (Bld) [#/Vol]4.14 10*6/uL3.90 - 5.20 m/uLWvumedicine Barnesville HospitalWBC (Bld) [#/Vol]11.48 10*3/uLHigh3.70 - 11.00 k/uLWvumedicine Barnesville HospitalComprehensive metabolic 2000 panelon 05-84-1996Averygh [Mass/Vol]4.1 g/dL3.9 - 4.9 g/dL Premier HealthP [Catalytic activity/Vol]81 U/L34 - 123 U/LCAccess Hospital Dayton ALT [Catalytic activity/Vol]9 U/L7 - 38 U/LCleveland ClinicAnion gap [Moles/Vol] 9 mmol/L9 - 18 mmol/LCleveland ClinicAST [Catalytic activity/Vol]18 U/L13 - 35 U/LCleveland [facility] Health ServicesBilirubin [Mass/Vol]0.5 mg/dL0.2 - 1.3 mg/dLWvumedicine Barnesville Hospital Calcium [Mass/Vol]9.9 mg/dL8.5 - 10.2 mg/dLWvumedicine Barnesville HospitalChloride [Moles/Vol] 99 mmol/L97 - 105 mmol/LCleveland ClinicCO2 [Moles/Vol]29 mmol/L22 - 30 mmol/L [facility] HospitalCreatinine [Mass/Vol]0.78 mg/dL0.58 - 0.96 mg/dLWvumedicine Barnesville Hospital Estimated Glomerular Filtration Rate81 mL/min/1.73m>=60 mL/min/1.73mCleveland [facility] Health ServicesGlucose [Mass/Vol]118 mg/bHSczt81 - 99 mg/dLWvumedicine Barnesville HospitalPotassium [Moles/Vol]3.6 mmol/LLow3.7 - 5.1 mmol/LCleveland ClinicProtein [Mass/Vol]6.9 g/dL6.3 - 8.0 g/dLDunkirk ClinicSodium [Moles/Vol]137 mmol/L136 - 144 mmol/L [facility] Barnesville HospitalUrea nitrogen [Mass/Vol]19 mg/dL7 - 21 mg/dLWvumedicine Barnesville Hospital Office Visit (Cardiology)on 77-75-6558Nlnwrv-up visitDiagnoses/Problems Assessed Essential hypertension (401.9) (I10) LBBB [...] problems noted below but recently was [facility] for chest pain and had ruled [...] chest pain requiring an ER visit to [facility]. Assessment was negative in the ER. Nuclear stress test is recommended and will be scheduled Bryce Hendrickson MD, [facility] Surgical History Problems History of Appendectomy [...] Recorded: 12May2022 11:27AM Heart Rate72, R Radial Qtswozlt435, RUE, Sitting Pbxvgqsjy55, RUE, Sitting Height5 ft 1 in Ptbypl721 lb BMI Uhvzlsefwg90.67 kg/m2 BSA Calculated1.7 Tobacco Useb) No PH (more content not included)...NormalUH TouchworksTobacco Screening.on 05-33-9300Mznzs depression screening assessmentNoSeattle [facility] Medical Center Red Guru DO Work Phone: Fall risk assessmenta) No falls within the last year [facility] Red Guru DO Work Phone: Tobacco use status CPHSb) NoMProvidence Health Behavio DO Work Phone: CTA CHEST WO W CONon [id number] CHEST WO W CON EXAMINATION: CTA CHEST [...] Electronically authenticated by: EMORY WILSON Date: 2022-05-11 00:34NormToledo Hospitale [facility] HospitalCovid-19 PCR (CVDTBH)on 75-05-8137OOBC-CoV-2 (COVID-19) RNA JANET+probe Ql (Unsp spec)Not detectedNormalNOT DETECTEDThe [facility] Comment on above:Result Comment: When diagnostic [...] for this test is supported by the Court Abstractor of Health and Human Service's declaration that [...] longer be used).Performed By: #### LACT #### [facility] [address] [address] [address] Isabell SewellCARDIDevyn M/2D COMPLETEon 56-46-7503IVANAIOGTQ M/2D COMPLETE Patient: RENUKA OWEN Exam Date: 05/11/2022 : 1950 Gender:F Ordering : VIVI CHAMBERS . Admission #: [id number] Family : DR SYLVESTER JACOB DJake Order #: [id number] CLICK HERE TO VIEW EXAM ECHOCARDIOGRAM REPORT [...] by: Kun Kent M.D. on 05/14/2022 at 10:30[facility] Medical CenterASSIUMon 25-92-0496Inijzvgwo [Moles/Vol]3.5 mmol/LNormal3.5-5.1The [facility] on above:Performed By: #### K #### [facility] [address] [place] [address] Dr. Isabell Longoria, [facility] SENSITIVITYon 92-20-1047EYPSIG39.0 pg/mLNormal 4.0-51.3TGenesis Hospital on above:Result Comment: CUT-OFF POINTS HAVE BEEN ESTABLISHED BASED ON THE FOURTH UNIVERSAL DEFINITIONS OF MYOCARDIAL INFARCTION. THE UPPER REFERENCE LIMIT (URL) OF TROPONIN, DEFINED THE 99TH PERCENTILE OF cTnI DISTRIBUTION IN A REFERENCE POPULATION, HAS BEEN CONFIRMED THE DECISION THRESHOLD FOR [place] DIAGNOSIS.Performed By: #### HSTROPN #### [facility] [address] [place] [address] Dr. Isabell DealOP15.3 pg/mLNormal4.0-51.3TGenesis Hospital on above:Result Comment: CUT-OFF POINTS HAVE BEEN ESTABLISHED BASED ON THE FOURTH UNIVERSAL DEFINITIONS OF MYOCARDIAL INFARCTION. THE UPPER REFERENCE LIMIT (URL) OF TROPONIN, DEFINED THE 99TH PERCENTILE OF cTnI DISTRIBUTION IN A REFERENCE POPULATION, HAS BEEN CONFIRMED THE DECISION THRESHOLD FOR [place] DIAGNOSIS.Performed By: #### HSTROPN #### [facility] [address] [place] [address] Dr. Isabell HollowayTROP13.2 pg/mLNormal4.0-51.3TGenesis Hospital on above:Result Comment: CUT-OFF POINTS HAVE BEEN ESTABLISHED BASED ON THE FOURTH UNIVERSAL DEFINITIONS OF MYOCARDIAL INFARCTION. THE UPPER REFERENCE LIMIT (URL) OF TROPONIN, DEFINED THE 99TH PERCENTILE OF cTnI DISTRIBUTION IN A REFERENCE POPULATION, HAS BEEN CONFIRMED THE DECISION THRESHOLD FOR [place] DIAGNOSIS.Performed By: #### HSTROPN #### [facility] [address] [place] [address] Dr. Isabell Mendez 17-87-3048Lizrhfzxzra peptide B (Bld) [Mass/Vol]663.0 pg/mL Normal<=900.0The [facility] HospitalComment on above:Performed By: #### BNP, CMP, HSTROPN #### [facility] [address] [place] [address] Dr. Isabell Munoz AUTO DIFFon 80-52-5500ZSLG #0.1 103/ulNormal0.0-0.1The [facility] HospitalComment on above:Performed By: #### HSTROPN #### [facility] [address] [place] [address] Dr. sIabell PeñaBasophils/100 WBC (Bld)0.4 %Normal0.2-2.0The [facility] Comment on above:Performed By: #### HSTROPN #### [facility] [address] [place] [address] Dr. Isabell Mayorga #0.2 103/ulNormal0.0-0.7The [facility] HospitalComment on above: Performed By: #### HSTROPN #### [facility] [address] [place] [address] Dr. Isabell Perezosinophils/100 WBC (Bld)1.4 %Normal0.9-7.0The [facility] Comment on above:Performed By: #### HSTROPN #### [facility] [address] [place] [address] Dr. Isabell Perezrythrocyte distribution width (RBC) [Ratio]15.7 %Critically high 11.0-15.0The [facility] HospitalComment on above:Performed By: #### HSTROPN #### [facility] [address] [place] [address] Dr. Isabell PeñaHematocrit (Bld) [Volume fraction]32.9 %Critically low36.0-48.0 The [facility] HospitalComment on above:Performed By: #### HSTROPN #### [facility] [address] [place] [address] Dr. Isabell PeñaHemoglobin (Bld) [Mass/Vol]11.4 g/dLCritically low12.0-16.0The [facility] HospitalComment on above:Performed By: #### HSTROPN #### [facility] [address] [place] [address] Dr. Isabell Driscoll #0.06 10e3/ulCritically high0.00-0.03The [facility] Comment on above:Performed By: #### HSTROPN #### [facility] [address] [place] [address] Dr. Isabell Driscoll %0.5 %Normal0.0-0.5The [facility] HospitalComment on above: Performed By: #### HSTROPN #### [facility] [address] [place] [address] Dr. Isabell Stein #1.6 103/ulNormal1.2-3.8The [facility] HospitalComment on above:Performed By: #### HSTROPRola #### [facility] [address] [place] [address] Dr. Isabell Roberthocytes/100 WBC (Bld)13.7 %Critically low20.5-60.0The [facility] HospitalComment on above:Performed By: #### HSTROPN #### [facility] [address] [place] [address] Dr. Isabell DempseyUAL DIFF REQNONormalThe [facility] HospitalComment on above: Performed By: #### HSTROPN #### [facility] [address] [place] [address] Dr. Isabell Juárez (RBC) [Entitic mass]28.3 ruWmotvz05.7-34.0The [facility] HospitalComment on above:Performed By: #### HSTROPN #### [facility] [address] [place] [address] Dr. Isabell GardnerHC (RBC) [Mass/Vol]34.7 g/dJZjmckz70.9-35.2The [facility] HospitalComment on above:Performed By: #### HSTROPN #### [facility] [address] [address] [address] Isabell GardnerV (RBC) [Entitic vol]81.6 rKUddsxa38.0-99.0The [facility] HospitalComment on above:Performed By: #### HSTROPN #### [facility] [address] [place] [address] Dr. Isabell Gonzalez #1.2 103/ulCritically high0.3-0.8The [facility] Comment on above:Performed By: #### HSTROPN #### [facility] [address] [place] [address] Dr. Isabell Grandaocytes/100 WBC (Bld)10.7 %Normal1.7-12.0[facility] Comment on above:Performed By: #### HSTROPN #### [facility] [address] [place] [address] Dr. Isabell Malloy #8.3 103/ulCritically high1.4-6.5ThCleveland Clinic Eucl[facility] Comment on above:Performed By: #### HSTROPN #### [facility] [address] [place] [address] Dr. Isabell Simmonsutrophils/100 WBC (Bld)73.3 %Sbaciu46.0-75.0The [facility] HospitalComment on above:Performed By: #### HSTROPN #### [facility] [address] [place] [address] Dr. Isabell Mathewlet mean volume (Bld) [Entitic vol]8.4 fLCritically low 9.5-13.5The [facility] HospitalComment on above:Performed By: #### HSTROPN #### [facility] [address] [place] [address] Dr. Isabell PeñaPLT380 103/caHdmooo840-849Wvp [facility] on above: Performed By: #### HSTROPN #### [facility] [address] [place] [address] Dr. Isabell PeñaRBC4.03 106/ulCritically low4.20-5.40The [facility] on above:Performed By: #### HSTROPN #### [facility] [address] [place] [address] Dr. Isabell PeñaWBC11.4 103/ulCritically high4.0-11.0The [facility] on above:Performed By: #### HSTROPN #### [facility] [address] [place] [address] Dr. Isabell Lew-DIMERon 15-83-1204M-DIMER2.39 mg/L FEUCritically high<=0.59The [facility] on above:Performed By: #### DDIM #### [facility] [address] [place] [address] Dr. Isabell Lew-DIMER COMMENTSSEE [facility] on above:Result Comment: Increases in D-Dimer [...] generalized hospitalization. Performed By: #### DDIM #### [facility] [address] [place] [address] Dr. Isabell PeñaPROF 14(COMP METB)on 23-55-5929Hfbouvd [Mass/Vol]3.4 g/dLNormal 3.4-5.0[facility] on above:Performed By: #### BNP, CMP, HSTROPN #### [facility] [address] [place] [address] Dr. Isabell PeñaAlbumin/Globulin [Mass ratio]1.1 {ratio}NormalThe [facility] HospitalComment on above:Performed By: #### BNP, CMP, HSTROPN #### [facility] [address] [place] [address] Dr. Isabell MeekP [Catalytic activity/Vol]99 U/SLpmonn00-700Kzy [facility] HospitalComment on above:Performed By: #### BNP, CMP, HSTROPN #### [facility] [address] [place] [address] Dr. Isabell Barnett [Catalytic activity/Vol]15 U/GJjuqnk88-53Bmd [facility] HospitalComment on above:Performed By: #### BNP, CMP, HSTROPN #### [facility] [address] [place] [address] Dr. Isabell Robbinson gap [Moles/Vol]12.0 mmol/LNormalThe [facility] Comment on above:Performed By: #### BNP, CMP, HSTROPN #### [facility] [address] [place] [address] Dr. Isabell PeñaAST [Catalytic activity/Vol]20 U/JSoveub05-60Uip [facility] HospitalComment on above:Performed By: #### BNP, CMP, HSTROPN #### [facility] [address] [place] [address] Dr. Isabell PeñaBilirubin [Mass/Vol]0.4 mg/dLNormal0.2-1.0The [facility] Comment on above:Performed By: #### BNP, CMP, HSTROPN #### [facility] [address] [place] [address] Dr. Isabell PeñaCalcium [Mass/Vol]8.6 mg/dLNormal8.5-10.1[facility] Comment on above:Performed By: #### BNP, CMP, HSTROPN #### [facility] [address] [place] [address] Dr. Isabell PeñaChloride [Moles/Vol]99 mmol/LIgjlly75-206Xxa [facility] Comment on above:Performed By: #### BNP, CMP, HSTROPN #### [facility] [address] [address] [address] Isabell PeñaCO2 [Moles/Vol]32.2 mmol/LCritically high21.0-32.0The [facility] on above:Performed By: #### BNP, CMP, HSTROPN #### [facility] [address] [place] [address] Dr. Isabell PeñaCreatinine [Mass/Vol]0.86 mg/dLNormal0.55-1.02The [facility] HospitalComment on above:Performed By: #### BNP, CMP, HSTROPN #### [facility] [address] [place] [address] Dr. Isabell PerezGFR-AF BANGLADESHI>60Normal>=60The [facility] on above:Performed By: #### BNP, CMP, HSTROPN #### [facility] [address] [place] [address] Dr. Isabell PerezGFR-NON AF BANGLADESHI>60Normal>=60The [facility] Hospital [facility] Columbusment on above:Performed By: #### BNP, CMP, HSTROPN #### [facility] [address] [place] [address] Dr. Isabell PeñaGlobulin (S) [Mass/Vol]3.2 g/dLNormalThe [facility] HospitalComsouthwest regional rehabilitation center on above:Performed By: #### BNP, CMP, HSTROPN #### [facility] [address] [place] [address] Dr. Isabell PeñaGlucose [Mass/Vol]111 mg/dLCritically iofx67-216Utq [facility] on above:Performed By: #### BNP, CMP, HSTROPN #### [facility] [address] [place] [address] Dr. Isabell PeñaPotassium [Moles/Vol]3.2 mmol/LCritically low3.5-5.1The [facility] on above:Performed By: #### BNP, CMP, HSTROPN #### [facility] [address] [place] [address] Dr. Isabell PeñaProtein [Mass/Vol]6.6 g/dLNormal6.4-8.2The [facility] Comment on above:Performed By: #### BNP, CMP, HSTROPN #### [facility] [address] [address] [address] Isabell PeñaSodium [Moles/Vol]140 mmol/PYgbnvt844-486Nwk [facility] Comment on above:Performed By: #### BNP, CMP, HSTROPN #### [facility] [address] [place] [address] Dr. Isabell PeñaUrea nitrogen [Mass/Vol]22.0 mg/dLCritically high7.0-18.0The [facility] HospitalComment on above:Performed By: #### BNP, CMP, HSTROPN #### [facility] [address] [place] [address] Dr. Isabell Barrera nitrogen/Creatinine [Mass ratio]25.6 mg/mgNormalThe [facility] HospitalComment on above:Performed By: #### BNP, CMP, HSTROPN #### [facility] [address] [place] [address] Dr. Isabell Longoria, HIGH SENSITIVITYon 19-96-3578SEFNZE9.6 pg/mLNormal 4.0-51.3The [facility] HospitalComment on above:Result Comment: CUT-OFF POINTS HAVE BEEN ESTABLISHED BASED ON THE FOURTH UNIVERSAL DEFINITIONS OF MYOCARDIAL INFARCTION. THE UPPER REFERENCE LIMIT (URL) OF TROPONIN, DEFINED THE 99TH PERCENTILE OF cTnI DISTRIBUTION IN A REFERENCE POPULATION, HAS BEEN CONFIRMED THE DECISION THRESHOLD FOR [place] DIAGNOSIS.Performed By: #### BNP, CMP, HSTROPN #### [facility] [address] [place] [address] Dr. Isabell PeñaCUJOSSE URINEon 40-76-3250BTUECQL URINEIsolate 1 Pseudomonas aeruginosa 10,000 cfu/mL of ORGANISM 1 Pseudomonas aeruginosa ANTIBIOTIC M.I.C RX STATUS Piperacillin/Tazobactam <=4 S F Ceftazidime 4 S F Imipenem 2 S F Amikacin <=2 S F Gentamicin <=1 S F Tobramycin <=1 S F Ciprofloxacin <=0.25 S F Levofloxacin 0.25 S FNormalThe [facility] HospitalComment on above:Performed By: #### HSTROPN #### [facility] [address] [place] [address] Dr. Isabell Munoz AUTO DIFFon 66-17-9931QAZH #0.0 103/ulNormal0.0-0.1The [facility] HospitalComment on above:Performed By: #### HSTROPN #### [facility] [address] [place] [address] Dr. Isabell PeñaBasophils/100 WBC (Bld)0.2 %Normal0.2-2.0The [facility] Comment on above:Performed By: #### HSTROPN #### [facility] [address] [place] [address] Dr. Isabell Mayorga #0.1 103/ulNormal0.0-0.7The [facility] HospitalComment on above: Performed By: #### HSTROPN #### [facility] [address] [place] [address] Dr. Isabell Perezosinophils/100 WBC (Bld)0.3 %Critically low0.9-7.0The [facility] Hospital [facility] Columbusment on above:Performed By: #### HSTROPN #### [facility] [address] [place] [address] Dr. Isabell Perezrythrocyte distribution width (RBC) [Ratio]15.4 %Critically high 11.0-15.0The [facility] HospitalComment on above:Performed By: #### HSTROPN #### [facility] [address] [place] [address] Dr. Isabell PeñaHematocrit (Bld) [Volume fraction]42.4 %Ytzosh60.0-48.0The [facility] HospitalComment on above:Performed By: #### HSTROPN #### [facility] [address] [place] [address] Dr. Isabell PeñaHemoglobin (Bld) [Mass/Vol]14.2 g/gINxvxyg44.0-16.0The [facility] HospitalComment on above:Performed By: #### HSTROPN #### [facility] [address] [place] [address] Dr. Isabell Driscoll #0.15 10e3/ulCritically high0.00-0.03The [facility] Comment on above:Performed By: #### HSTROPN #### [facility] [address] [place] [address] Dr. Isabell Driscoll %0.9 %Critically high0.0-0.5The [facility] HospitalComment on above:Performed By: #### HSTROPN #### [facility] [address] [place] [address] Dr. Isabell Stein #1.5 103/ulNormal1.2-3.8The [facility] HospitalComment on above:Performed By: #### HSTRBENEDICT #### [facility] [address] [place] [address] Dr. Isabell Roberthocytes/100 WBC (Bld)9.1 %Critically low20.5-60.0The [facility] HospitalComment on above:Performed By: #### HSTRBENEDICT #### [facility] [address] [place] [address] Dr. Isabell DempseyUAL DIFF REQNONormalThe [facility] HospitalComment on above: Performed By: #### HSTRMELYSSAN #### [facility] [address] [place] [address] Dr. Isabell Juárez (RBC) [Entitic mass]27.5 cmKljppw15.7-34.0The [facility] HospitalComment on above:Performed By: #### HSTROPN #### [facility] [address] [place] [address] Dr. Isabell Parsons (RBC) [Mass/Vol]33.5 g/hKXgmyuh65.9-35.2The [facility] HospitalComment on above:Performed By: #### HSTROPN #### [facility] [address] [place] [address] Dr. Isabell GardnerV (RBC) [Entitic vol]82.2 cAWibamz40.0-99.0The [facility] HospitalComment on above:Performed By: #### HSTROPN #### [facility] [address] [place] [address] Dr. Isabell Gonzalez #1.1 103/ulCritically high0.3-0.8The [facility] Comment on above:Performed By: #### HSTROPN #### [facility] [address] [place] [address] Dr. Isabell Grandaocytes/100 WBC (Bld)6.4 %Normal1.7-12.0[facility] Comment on above:Performed By: #### HSTROPN #### [facility] [address] [place] [address] Dr. Isabell Malloy #13.8 103/ulCritically high1.4-6.5The [facility] Comment on above:Performed By: #### HSTROPN #### [facility] [address] [place] [address] Dr. Isabell PeñaNeutrophils/100 WBC (Bld)83.1 %Critically high43.0-75.0The [facility] HospitalComment on above:Performed By: #### HSTROPN #### [facility] [address] [place] [address] Dr. Isabell Mathewlet mean volume (Bld) [Entitic vol]8.7 fLCritically low 9.5-13.5The [facility] HospitalComment on above:Performed By: #### HSTROPN #### [facility] [address] [place] [address] Dr. Isabell PeñaPLT438 103/igBnegkn959-349Caa [facility] HospitalComment on above: Performed By: #### HSTROPN #### [facility] [address] [place] [address] Dr. Isabell PeñaRBC5.16 106/ulNormal4.20-5.40The [facility] HospitalComment on above:Performed By: #### HSTROPN #### [facility] [address] [address] [address] Isabell PeñaWBC16.7 103/ulCritically high4.0-11.0The [facility] HospitalComment on above:Performed By: #### HSTROPN #### [facility] [address] [place] [address] Dr. Isabell Gutierrez 90-59-4572NBL [Mass/Vol]mg/LNormal<=1.0The [facility] HospitalComsouthwest regional rehabilitation [facility] on above:Performed By: #### HSTROPN #### [facility] [address] [place] [address] Dr. Isabell Pastor URINE PROFILEon 59-03-9145Ezvhfdync Ql (U)NegativeNormal NEGATIVEPremier Health Atrium Medical CenterComment on above:Performed By: #### CARMEN UMICRO #### [facility] [address] [place] [address] Dr. Isabell PeñaClarity (U)CLEARNormalCLEARFayette County Memorial Hospitalment on above: Performed By: #### CARMEN UMICRO #### [facility] [address] [place] [address] (U)LT. YELLOWNormalYELLOWFayette County Memorial Hospitalment on above:Performed By: #### CARMEN UMICRO #### [facility] [address] [place] [address] Dr. Isabell McfarlaneDA micrscopic examination will be performed if indicated. NormalThe [facility] HospitalComment on above:Performed By: #### ERUKaruna UMICRO #### [facility] [address] [place] [address] Dr. Isabell PeñaGlucose Ql (U)NegativeNormalNEGATIVEPremier Health Atrium Medical CenterComment on above:Performed By: #### ERUR, UMICRO #### [facility] [address] [place] [address] Dr. Isabell PeñaHemoglobin Ql (U)NegativeNormalNEGATIVEThe [facility] Comment on above:Performed By: #### CARMEN UMICRO #### [facility] [address] [address] [address] Isabell Enriquez Ql (U)NegativeNormalNEGATIVEThe [facility] HospitalComment on above:Performed By: #### CARMEN UMICRO #### [facility] [address] [address] [address] Isabell PeñaLEUKOCYTESLARGEAbnormalNEGATIVEThe [facility] HospitalComment on above:Performed By: #### CARMEN UMICRO #### [facility] [address] [address] [address] Isabell Cooktrbimal Ql (U)NegativeNormalNEGATIVEThe [facility] HospitalComment on above:Performed By: #### CARMEN UMICRO #### [facility] [address] [place] [address] Dr. Isabell PeñapH (U)6.5 [pH]Normal5-9The [facility] HospitalComment on above: Performed By: #### CARMEN UMICRO #### [facility] [address] [place] [address] Dr. Isabell PeñaSPEC GRAVITY1.947Olxyil7.005-<=1.025The [facility] HospitalComment on above:Performed By: #### CARMEN UMICRO #### [facility] [address] [place] [address] Dr. Isabell Phillip PROTEINNegativeNormalNEGATIVE/ TRACEThe [facility] Comment on above:Performed By: #### CARMEN UMICRO #### [facility] [address] [address] [address] Isabell Gurrola MICRO INDINDICATEDNormalThe [facility] HospitalComment on above: Performed By: #### CARMEN UMICRO #### [facility] [address] [place] [address] Dr. Isabell Colininogen Qn (U)0.2 {Bradly'U}/dLNormal0.2 - 1.0The [facility] HospitalComment on above:Performed By: #### KAREN MORALES #### [facility] [address] [place] [address] Dr. Isabell PeñaLACTATE/LACTIC ACIDon 82-47-2440Knecino [Moles/Vol]1.2 mmol/L Normal0.4-1.9The [facility] HospitalComment on above:Performed By: #### LACT #### [facility] [address] [place] [address] Dr. Isabell PeñaPROF 14(COMP METB)on 40-99-4889Hxunwms [Mass/Vol]3.6 g/dLNormal 3.4-5.0The [facility] HospitalComment on above:Performed By: #### HSTROPN #### [facility] [address] [place] [address] Dr. Isabell PeñaAlbumin/Globulin [Mass ratio]1.0 {ratio}NormalThe [facility] HospitalComment on above:Performed By: #### HSTROPN #### [facility] [address] [place] [address] Dr. Isabell Tse [Catalytic activity/Vol]79 U/WXunkpj49-985Uym [facility] HospitalComment on above:Performed By: #### HSTROPN #### [facility] [address] [place] [address] Dr. Isabell Barnett [Catalytic activity/Vol]23 U/PVpcxab62-21Nmt [facility] HospitalComment on above:Performed By: #### HSTROPN #### [facility] [address] [place] [address] Dr. Isabell Bunch gap [Moles/Vol]12.7 mmol/LNormalThe [facility] Comment on above:Performed By: #### HSTROPN #### [facility] [address] [place] [address] Dr. Isabell Lagunas [Catalytic activity/Vol]19 U/CIhcnsc44-28Hdq [facility] HospitalComment on above:Performed By: #### HSTROPN #### [facility] [address] [place] [address] Dr. Isabell PeñaBilirubin [Mass/Vol]0.7 mg/dLNormal0.2-1.0The [facility] Comment on above:Performed By: #### HSTROPN #### [facility] [address] [address] [address] Isabell PeñaCalcium [Mass/Vol]9.8 mg/dLNormal8.5-10.1The [facility] Comment on above:Performed By: #### HSTROPN #### [facility] [address] [address] [address] Isabell PeñaChloride [Moles/Vol]93 mmol/LCritically oob08-890Xfw [facility] HospitalComment on above:Performed By: #### HSTROPN #### [facility] [address] [place] [address] Dr. Isabell PeñaCO2 [Moles/Vol]29.9 mmol/YIkykpa04.0-32.0The [facility] Comment on above:Performed By: #### HSTROPN #### [facility] [address] [address] [address] Isabell PeñaCreatinine [Mass/Vol]1.14 mg/dLCritically high0.55-1.02The [facility] HospitalComment on above:Performed By: #### HSTROPN #### [facility] [address] [place] [address] Dr. Whyte ChangEGFR-AF LZWZODSX03 mL/min/1.75r7Ntfdjmxrcq low>=60The [facility] HospitalComment on above:Performed By: #### HSTROPN #### [facility] [address] [address] [address] Isabell PerezGFR-NON AF ZXOPSNKA10 mL/min/1.95n6Sktnadpopa low>=60The [facility] HospitalComment on above:Performed By: #### HSTROPN #### [facility] [address] [place] [address] Dr. Isabell PeñaGlobulin (S) [Mass/Vol]3.7 g/dLNormalThe [facility] HospitalComment on above:Performed By: #### HSTROPN #### [facility] [address] [address] [address] Isabell PeñaGlucose [Mass/Vol]110 mg/dLCritically auqw48-056Fov [facility] HospitalComment on above:Performed By: #### HSTROPN #### [facility] [address] [place] [address] Dr. Isabell ePñaPotassium [Moles/Vol]3.6 mmol/LNormal3.5-5.1The [facility] Comment on above:Performed By: #### HSTROPN #### [facility] [address] [address] [address] Isabell PeñaProtein [Mass/Vol]7.3 g/dLNormal6.4-8.2The [facility] Comment on above:Performed By: #### HSTROPN #### [facility] [address] [place] [address] Dr. Isabell PeñaSodium [Moles/Vol]132 mmol/LCritically kbi434-912Eis [facility] HospitalComment on above:Performed By: #### HSTROPN #### [facility] [address] [address] [address] Isabell PeñaUrea nitrogen [Mass/Vol]30.0 mg/dLCritically high7.0-18.0The [facility] HospitalComment on above:Performed By: #### HSTROPN #### [facility] [address] [place] [address] Dr. Isabell Barrera nitrogen/Creatinine [Mass ratio]26.3 mg/mgNormalThe [facility] HospitalComment on above:Performed By: #### HSTROPN #### [facility] [address] [place] [address] Dr. Isabell Longoria, HIGH SENSITIVITYon 04-96-5811JGAMHL26.5 pg/mLNormal 4.0-51.3The [facility] HospitalComment on above:Result Comment: CUT-OFF POINTS HAVE BEEN ESTABLISHED BASED ON THE FOURTH UNIVERSAL DEFINITIONS OF MYOCARDIAL INFARCTION. THE UPPER REFERENCE LIMIT (URL) OF TROPONIN, DEFINED THE 99TH PERCENTILE OF cTnI DISTRIBUTION IN A REFERENCE POPULATION, HAS BEEN CONFIRMED THE DECISION THRESHOLD FOR [place] DIAGNOSIS.Performed By: #### HSTROPN #### [facility] [address] [place] [address] Dr. Isabell Tijerina 40-65-7453UEC2.628 uIU/mLNormal0.358-3.740The [facility] HospitalComment on above:Performed By: #### HSTROPN #### [facility] [address] [place] [address] Dr. Isabell Naranjo MICROSCOPIC ONLYon 48-24-3224KDXWPOZBUKFB SEENNormalNONE SEENThe [facility] HospitalComment on above:Performed By: #### KAREN MORALES #### [facility] [address] [place] [address] Dr. Isabell George identified Cx Nom (U)INDICATEDNoalThCleveland Clinic Euclid HospitalComment on above:Performed By: #### CARLENE MORALESRO #### [facility] [address] [place] [address] Dr. Isabell PeñaCASTZENAIDA SEENNormalNONE SEENPremier Health Atrium Medical CenterComsouthwest regional rehabilitation center on above:Performed By: #### KAREN MORALES #### [facility] [address] [place] [address] Dr. Isabell Branhamystals LM Nom (Urine sed)NONE SEENNormalNONE SEENThe [facility] HospitalComsouthwest regional rehabilitation center on above:Performed By: #### KAREN MORALES #### [facility] [address] [place] [address] Dr. Whyte ChangEpithelial cells LM Ql (Urine sed)FEWAbnormalNONE SEEN /RAREThe [facility] HospitalComment on above:Performed By: #### KAREN MORALES #### [facility] [address] [place] [address] Dr. Isabell RajputCOUSNONE SEENNormalNONE SEENPremier Health Atrium Medical CenterComsouthwest regional rehabilitation center on above:Performed By: #### CARLENE MORALESRO #### [facility] [address] [address] [address] Whyte QvebvZPZ4-4Aafoby1-8Sio [facility] HospitalComment on above:Performed By: #### KAREN MORALES #### [facility] [address] [address] [address] Whyte ChangWBC5-10AbnormalNONE SEENThe [facility] HospitalComment on above: Performed By: #### KAREN MORALES #### [facility] [address] [address] [address] Isabell PeñaCOVID-19 SOFIAOrdered By: Devin Moreau on 03-27-2022 SARS-CoV+SARS-CoV-2 (COVID-19) Ag IA.rapid Ql (Resp)NegativeNegativeShelby Memorial HospitalComment on above:This is a duplicate Saba SARS Antigen (CORAZON) result to be used for statistical tracking purpose only.No Panel InformationOrdered By: Devin Moreau on 20-11-6583YVQA Antigen (LFIA)[facility] HospitalARS Antigen (LFIA)[facility] Basophils Auto (Bld) [#/Vol]Ordered By: Devin Moreau on 13-95-0247Oddbvovkv (Bld) [#/Vol]0.1 10*3/uL0.0-0.2FWooster Community HospitalBasophils/100 WBC Auto (Bld)Ordered By: Devin Moreau on 21-92-5985Xuammserr/100 WBC (Bld)0.8 %.[facility] HospitalCreatinine and Glomerular filtration rate.predicted panel (S/P/Bld)Ordered By: Devin Moreau on 33-77-4880Onsdyxbgou [Mass/Vol]0.98 mg/dL0.44-1.03[facility] Memorial HospitalEosinophils Auto (Bld) [#/Vol] Ordered By: Devin Moreau on 89-53-7124Grjwoyvnwfn (Bld) [#/Vol]0.2 10*3/uL0.0-0.45 [facility] HospitalEosinophils/100 WBC Auto (Bld)Ordered By: Devin Moreau on 74-95-4829Qdslttfkgoc/100 WBC (Bld)2.5 %.[facility] HospitalErythrocyte distribution width Auto (RBC) [Ratio]Ordered By: Devin Moreau on 10-15-1881Dpwebrpdgcz distribution width (RBC) [Ratio]15.5 %11.9-15.3FWooster Community HospitalEstimated glomerular filtration rate (GFR) non- AmericanOrdered By: Devin Moreau on 15-83-1519USA/1.73 sq M.predicted among non- blacks MDRD (S/P/Bld) [Vol rate/Area]56 mL/MinShelby Memorial Hospital Hematocrit Auto (Bld) [Volume fraction]Ordered By: Devin Moreau on 03-16-2022 Hematocrit (Bld) [Volume fraction]40.9 %34.0-46.4FWooster Community HospitalHemoglobin [Mass/volume] in BloodOrdered By: Devin Moreau on 03-16-2022 Hemoglobin (Bld) [Mass/Vol]13.3 g/dL11.8-15.4FWooster Community Hospital Laboratory - Hematology and Cell countsOrdered By: Devin Moreau on 03-16-2022 Nucleated RBC/100 WBC (Bld) [Ratio]0.1 %0-0.5FWooster Community Hospital Leukocytes [#/volume] in Blood by Automated countOrdered By: Devin Moreau on 56-48-7478DUQ (Bld) [#/Vol]6.8 10*3/uL4.5-11.0[facility] Lymphocytes Auto (Bld) [#/Vol]Ordered By: Devin Moreau on 97-53-8271Wxxkakykath (Bld) [#/Vol]1.3 10*3/uL1.00-4.8[facility] HospitalLymphocytes/100 WBC Auto (Bld)Ordered By: Devin Moreau on 04-11-9343Gmtjditzmxa/100 WBC (Bld)19.5 %.[facility] Auto (RBC) [Entitic mass]Ordered By: Devin Moreau on 35-38-7872QGO (RBC) [Entitic mass]27.7 pg24.7-34.3FWooster Community HospitalMCHC Auto (RBC) [Mass/Vol]Ordered By: Devin Moreau on 93-97-0327JLVR (RBC) [Mass/Vol]32.6 g/dL32.0-35.0[facility] HospitalMCV Auto (RBC) [Entitic vol]Ordered By: Devin Moreau on 41-83-2063CAB (RBC) [Entitic vol]85.0 xG20-550HwxusfehzShelby Memorial HospitalMonocytes Auto (Bld) [#/Vol]Ordered By: Devin Moreau on 15-76-5982Mufqiefuz (Bld) [#/Vol]0.8 10*3/uL 0.0-0.8[facility] HospitalMonocytes/100 WBC Auto (Bld)Ordered By: Devin Moreau on 54-88-8430Nkbuiakuo/100 WBC (Bld)11.2 %.[facility] HospitalNeutrophils Auto (Bld) [#/Vol]Ordered By: Devin Moreau on 03-16-2022 Neutrophils (Bld) [#/Vol]4.5 10*3/uL1.8-7.7FWooster Community Hospital Neutrophils/100 WBC Auto (Bld)Ordered By: Devin Moreau on 03-16-2022 Neutrophils/100 WBC (Bld)66.0 %.[facility] HospitalNo Panel InformationOrdered By: Devin Moreau on 44-59-7403Xnaurcszq GFR ()> 60 mL/MinShelby Memorial HospitalComment on above:GFR estimated reference range: According to KDOQI guidelines, <60 ml/min/1.73m2 is sufficient todiagnose a patient with chronic kidney disease.Pharmacy Creatinine Clearance (ChemN/[facility] HospitalPlatelet mean volume Auto (Bld) [Entitic vol]Ordered By: Devin Moreau on 88-19-6295Scohxage mean volume (Bld) [Entitic vol]8.3 fL6.3-10.7FWooster Community HospitalPlatelets Auto (Bld) [#/Vol]Ordered By: Devin Moreau on 82-90-2433Fmvaquerr (Bld) [#/Vol]302 10*3/uL 150-450S[facility] Memorial HospitalRBC Auto (Bld) [#/Vol]Ordered By: Devin Moreau on 48-51-7075RFH (Bld) [#/Vol]4.81 10*6/uL3.60-5.00[facility] Hospitalerum or plasma anion gap determinationOrdered By: Devin Moreau on 50-03-7563Tzyrd gap [Moles/Vol]13.6 mmol/L6.0-15.0[facility] Memorial Hospitalerum or plasma calcium measurement (mass/volume)Ordered By: Devin Moreau on 27-69-7184Cdvncmz [Mass/Vol]10.0 mg/dL8.2-10.2FWooster Community Hospital Serum or plasma chloride measurement (moles/volume)Ordered By: Devin Moreau on 58-53-7983Tayxidje [Moles/Vol]98 mmol/R01-796SdshoslcqShelby Memorial Hospital Serum or plasma glucose measurement (mass/volume)Ordered By: Devin Moreau on 64-21-4613Toocubq [Mass/Vol]94 mg/nX97-708ZiitepjepShelby Memorial Hospital Comment on above:ADA recommended reference rangeRandom Glucose Reference Range is dependent on time and content of last meal. Glucose of more than 200 mg/dL in a nonstressed, ambulatory subject supports the diagnosisof Diabetes Mellitus. Serum or plasma potassium measurement (moles/volume)Ordered By: Devin Moreau on 07-52-3414Ljmtfovih [Moles/Vol]4.8 mmol/L3.5-5.1FNationwide Children's Hospitalerum or plasma sodium measurement (moles/volume)Ordered By: Devin Moreau on 86-10-7764Qdjoyn [Moles/Vol]137 mmol/H966-245BeyuaevfnShelby Memorial Hospital Serum or plasma total carbon dioxide measurement (moles/volume)Ordered By: Devin Moreau on 73-83-5283LO2 [Moles/Vol]30.2 mmol/L22.0-30.0[facility] Hospitalerum or plasma urea nitrogen measurement (mass/volume)Ordered By: Devin Moreau on 76-52-1997Eeok nitrogen [Mass/Vol]19 mg/dL9-23[facility] HospitalOffice Visit (Cardiology)on 02-79-4760Oknkba-up visit Diagnoses/Problems Assessed Mitral regurgitation (424.0) (I34.0) [...] Metabolic Panel; Status:Active - Retrospective Authorization; Requested for:[id number]; Complete Blood Count; Status:Active - Retrospective Authorization; Requested for:07Sep2022; Lipid Panel; Status:Active - Retrospective Authorization; Requested for:[id number]; Essential hypertension, PMH: Nonischemic cardiomyopathy Renew: Carvedilol [...] 2021. Ejection fraction 55-60% Bryce Hendrickson MD, [facility] Surgical History Problems History of Appendectomy [...] Recorded: 10Feb2022 08:39AM Heart Rate62, R Radial Shusqoda740, RUE, Sitting Anxmmxaef95, RUE, Sitting Height5 ft 1 in Ctrhbj517 lb BMI Mzsoulsamn82.42 kg/m2 BSA Calculated1.72 Tobacco Useb) No PHQ-2 #1. Over the last 2 weeks have you felt down, depressed or hopeless? (If yes, answer PHQ-9 below)No PHQ-2 #2. Over the last 2 weeks have you felt little interest or pleasure in doing things? (If yes,answer PHQ-9 below)No (more content not included)...NormalUH TouchworksTobacco Screening.on 02-10-2022 Adult depression screening assessmentNoSeattle [facility] Medical Center [employer] SLAlton 600 DO Work Phone: Fall risk assessmentb) One or more falls in the last yearSeattle [facility] Center Y CombinatorAlbany Memorial Hospitalk 600 DO Work Phone: Tobacco use status CPHSb) [facility] [employer] SL [address] 600 DO Work Phone: MG MAMM DX 3D RT CADon [id number] MAMM DX 3D RT CAD Patient: RENUKA OWEN Exam Date: 02/05/2022 : 1950 Gender:F Ordering : [facility] AJAY SONG [facility] Admission #: [id number] Family : Order #: [id number] CLICK HERE TO VIEW EXAM RADIOLOGY REPORT PROCEDURE: MAMMOGRAM DIAGNOSTIC 3D RIGHT CAD COMPARISON: MG MAMM DX 3D RT CAD, 02/04/2021. INDICATIONS: Estrogen receptor negative neoplasm Calculator Name NCI Breast Cancer Risk Assessment Tool 5 Year Breast Cancer Risk n/a% Lifetime Breast Cancer Risk n/a% Personal Breast Cancer Yes, Left breast cancer 2012 Personal Ovarian Cancer No Treatments Left mastectomy, radiation, ncfshotepgvm85 Family Cancers Father with testicular cancer at age 27. LOCATION: [facility] BREAST COMPOSITION: Scattered areas fibroglandular density. [...] by: Evelin Lott MD on 02/05/2022 at 14:47[facility] TroyI LITZY MCCAULEY CONon 18-73-8021[facility] CONEXAMINATION: MRI LITZY MCCAULEY CON HISTORY: Idiopathic osteoarthritis ; chronic lumbar [...] Electronically authenticated by: TAMY HOLM Date: 2022-01-09 14:16[facility] HospitalCOVID-19 Positive/NegativeOrdered By: Devin Moreau on 10-06-2021 SARS-CoV-2 (COVID-19) N gene JANET+probe Ql (Resp)NegativeNegativeShelby Memorial HospitalComment on above:Testing for SARS-CoV-2 by RT-PCR This test was developed and its performance characteristics determined by [employer] ([place]) and validated at the [facility]. This test has not been [...] Auto (Bld) [#/Vol]Ordered By: Devin Moreau on 36-12-1765Amosxhgmf (Bld) [#/Vol]0.1 10*3/uL0.0-0.2FWooster Community HospitalBasophils/100 WBC Auto (Bld)Ordered By: Devin Moreau on 09-24-2021 Basophils/100 WBC (Bld)1.2 %[facility] HospitalBlood hemoglobin measurement (mass/volume)Ordered By: Devin Moreau on 50-91-5711Btujqolqah (Bld) [Mass/Vol]12.9 g/dL11.8-15.4FWooster Community HospitalBlood leukocytes automated count (number/volume)Ordered By: Devin Moreau on 43-33-0617VSN (Bld) [#/Vol]5.9 10*3/uL4.5-11.0[facility] HospitalCreatinine and Glomerular filtration rate.predicted panel (S/P/Bld)Ordered By: Devin Moreau on 36-69-8130Lupkpygcvw [Mass/Vol]0.80 mg/dL0.44-1.03[facility] HospitalEosinophils Auto (Bld) [#/Vol]Ordered By: Devin Moreau on 09-24-2021 Eosinophils (Bld) [#/Vol]0.2 10*3/uL0.0-0.45[facility] Eosinophils/100 WBC Auto (Bld)Ordered By: Devin Moreau on 09-24-2021 Eosinophils/100 WBC (Bld)2.6 %[facility] HospitalErythrocyte distribution width Auto (RBC) [Ratio]Ordered By: Devin Moreau on 09-24-2021 Erythrocyte distribution width (RBC) [Ratio]15.8 %11.9-15.3FWooster Community HospitalEstimated glomerular filtration rate (GFR) non- Ordered By: Devin Moreau on 94-95-1884NIF/1.73 sq M.predicted among non-blacks MDRD (S/P/Bld) [Vol rate/Area]> 60 mL/MinShelby Memorial Hospital Hematocrit Auto (Bld) [Volume fraction]Ordered By: Devin Moreau on 09-24-2021 Hematocrit (Bld) [Volume fraction]39.6 %34.0-46.4FWooster Community HospitalLaboratory - Hematology and Cell countsOrdered By: Devin Moreau on 02-75-2871Xeplmadpz RBC/100 WBC (Bld) [Ratio]0.0 %0-0.5FWooster Community HospitalLymphocytes Auto (Bld) [#/Vol]Ordered By: Devin Moreau on 09-24-2021 Lymphocytes (Bld) [#/Vol]1.1 10*3/uL1.00-4.8[facility] Lymphocytes/100 WBC Auto (Bld)Ordered By: Devin Moreau on 09-24-2021 Lymphocytes/100 WBC (Bld)18.2 %[facility] Auto (RBC) [Entitic mass]Ordered By: Devin Moreau on 05-40-1037FSX (RBC) [Entitic mass]27.0 pg24.7-34.3FWooster Community HospitalMCHC Auto (RBC) [Mass/Vol]Ordered By: Devin Moreau on 43-32-0777KCKA (RBC) [Mass/Vol]32.6 g/dL32.0-35.0S[facility] Memorial HospitalMCV Auto (RBC) [Entitic vol]Ordered By: Devin Moreau on 19-88-9660TZH (RBC) [Entitic vol]82.7 yW58-721ZcdtnbvlbShelby Memorial Hospital Monocytes Auto (Bld) [#/Vol]Ordered By: Devin Moreau on 42-83-3436Enlkgxqjy (Bld) [#/Vol]0.7 10*3/uL0.0-0.8[facility] HospitalMonocytes/100 WBC Auto (Bld)Ordered By: Devin Moreau on 91-05-0958Futzfegmo/100 WBC (Bld)11.4 %[facility] HospitalNeutrophils Auto (Bld) [#/Vol]Ordered By: Devin Moreau on 16-21-4883Icqpphzrfad (Bld) [#/Vol]3.9 10*3/uL1.8-7.7FWooster Community HospitalNeutrophils/100 WBC Auto (Bld)Ordered By: Devin Moreau on 09-24-2021 Neutrophils/100 WBC (Bld)66.6 %[facility] HospitalNo Panel InformationOrdered By: Devin Moreau on 48-19-6941Qhctoafxx GFR ()> 60 mL/MinShelby Memorial HospitalComment on above:GFR estimated reference range: According to KDOQI guidelines, <60 ml/min/1.73m2 is sufficient todiagnose a patient with chronic kidney disease.Pharmacy Creatinine Clearance (ChemN/[facility] HospitalPlatelet mean volume Auto (Bld) [Entitic vol]Ordered By: Devin Moreau on 32-25-6555Dwqwtylm mean volume (Bld) [Entitic vol]7.6 fL6.3-10.7FWooster Community HospitalPlatelets Auto (Bld) [#/Vol]Ordered By: Devin Moreau on 62-26-0570Acwtnxvlr (Bld) [#/Vol]296 10*3/uL 150-450S[facility]by Memorial HospitalRBC Auto (Bld) [#/Vol]Ordered By: Devin Moreau on 94-21-0792MYQ (Bld) [#/Vol]4.79 10*6/uL3.60-5.00[facility] Hospitalerum or plasma calcium measurement (mass/volume)Ordered By: Devin Moreau on 53-67-4151Mjpfjxh [Mass/Vol]8.7 mg/dL8.2-10.2FNationwide Children's Hospitalerum or plasma chloride measurement (moles/volume)Ordered By: Devin Moreau on 21-60-9585Hhjtyips [Moles/Vol]100 mmol/O15-242YwzjlsufeMemorial Health System Marietta Memorial Hospitalerum or plasma glucose measurement (mass/volume)Ordered By: Devin Mroeau on 86-32-3795Xgngecw [Mass/Vol]90 mg/xQ09-677EixumcwvwShelby Memorial Hospital Comment on above:ADA recommended reference range Random Glucose Reference Range is dependent on time and content of last meal. Glucose of more than 200 mg/dL in a nonstressed, ambulatory subject supports the diagnosis of Diabetes Mellitus.Serum or plasma potassium measurement (moles/volume)Ordered By: Devin Moreau on 23-01-2397Lrpguhfsu [Moles/Vol]4.1 mmol/L3.5-5.1FNationwide Children's Hospitalerum or plasma sodium measurement (moles/volume)Ordered By: Devin Moreau on 40-37-8932Mioweg [Moles/Vol]136 mmol/L 136-146[facility] Hospitalerum or plasma total carbon dioxide measurement (moles/volume)Ordered By: Devin Moreau on 88-55-0085ED5 [Moles/Vol] 25.2 mmol/L22.0-30.0[facility] Hospitalerum or plasma urea nitrogen measurement (mass/volume)Ordered By: Devin Moreau on 70-37-3624Kwto nitrogen [Mass/Vol]20 mg/dL9-23S[facility] Memorial HospitalBasic Metabolic Panlon 98-98-5181Wxrde gap [Moles/Vol]16 mmol/LNormal9-18FMiddlesex County Hospital Comment on above:Performed By: #### BMP, CBCDIF ####[facility] [place], [place] [phone] [Mass/Vol]9.3 mg/dLNormal 8.5-10.5FMiddlesex County HospitalComment on above:Performed By: #### JOSE, CBCDIF ####[place] [phone] [Moles/Vol]101 mmol/VNeusjx22-472Qnjadqfx HospitalComment on above:Performed By: #### JOSE, CBCDIF ####[place] 510626-71[address]CO2 [Moles/Vol]22 mmol/WFyo40-11Cvlhiaha HospitalComment on above:Performed By: #### JOSE, CBCDIF ####[place] 510626-71[address]Creatinine [Mass/Vol]0.84 mg/dLNormal 0.70-1.40[facility] HospitalComment on above:Performed By: #### JOSE, CBCDIF ####[place] [phone]- Amer.>60Normal>60[facility] HospitalComment on above:Performed By: #### JOSE, CBCDIF ####[place] 510626-7110GFR/1.73 sq M predicted among non-blacks MDRD (S/P/Bld) [Vol rate/Area]mL/min/{1.73_m2}Normal>60[facility] HospitalComment on above:Performed By: #### JOSE, CBCDIF ####[place] 510626-71[address]Glucose [Mass/Vol]115 mg/pTPxsf58-094Gaxhueuw HospitalComment on above:Performed By: #### JOSE, CBCDIF ####[place] [phone] [Moles/Vol]3.6 mmol/LNormal 3.5-5.0[facility] HospitalComment on above:Performed By: #### JOSE, CBCDIF ####[place] [phone] [Moles/Vol]139 mmol/TNhqsjt110-489Mmjhdqgs HospitalComment on above:Performed By: #### JOSE CBCDIF ####[place] [phone] nitrogen [Mass/Vol]16 mg/dLNormal8-25[facility] Comment on above:Performed By: #### JOSE CBCDIF ####[place] [phone] and Differentialon 78-99-7733Wca Baso<0.03Normal<0.11[facility] HospitalComment on above:Performed By: #### JOSE CBCDIF ####[place] 5[address]26-71[address] Abs Mono0.48 k/uLNormal<0.87[facility] HospitalComment on above:Performed By: #### JOSE CBCDIF ####[place] 510626-7110Abs Neut7.17 k/uLNormal1.45-7.50[facility] HospitalComment on above:Performed By: #### JOSE CBCDIF ####[place] [phone] nRBC<0.01Normal<0.01Raymond HospitalComment on above:Performed By: #### JOSE CBCDIF ####[place] 510626-7110Basophils/100 WBC (Bld)0.1 %NormalFaleonard morse hospital HospitalComment on above:Performed By: #### JOSE CBCDIF ####[place] [phone] Auto DiffNormalFaleonard morse hospital HospitalComment on above:Performed By: #### JOSE CBCDIF ####[place] [phone] Eosinophils (Bld) [#/Vol]10*3/uLNormal<0.46FaHahnemann HospitalComment on above: Performed By: #### JOSE, CBCDIF ####[place] [phone]/100 WBC (Bld)0.0 %Normal [facility] HospitalComment on above:Performed By: #### JOSE, CBCDIF ####[place] [phone] distribution width (RBC) [Ratio]13.9 %Caxoid66.5-15.0Raymond HospitalComment on above:Performed By: #### JOSE, CBCDIF ####[place] [phone] (Bld) [Volume fraction]37.7 % Ikcwkn44.0-46.0Raymond HospitalComment on above:Performed By: #### JOSE, CBCDIF ####[place] [phone] Hemoglobin (Bld) [Mass/Vol]12.4 g/dNEygxjx81.5-15.5FMiddlesex County HospitalComment on above:Performed By: #### JOSE, CBCDIF ####[place] [phone] (Bld) [#/Vol]0.98 10*3/uLLow 1.00-4.00[facility] HospitalComment on above:Performed By: #### JOSE, CBCDIF ####[place] [phone] Lymphocytes/100 WBC (Bld)11.3 %NormalBrigham And Women'S HospitalComment on above:Performed By: #### JOSE, CBCDIF ####[place] [phone] (RBC) [Entitic mass]27.3 vQMzuody72.0-34.0[facility] Comment on above:Performed By: #### BMP, CBCDIF ####[place] 510626-7110MCHC (RBC) [Mass/Vol]32.9 g/dLNormal 30.5-36.0Raymond HospitalComment on above:Performed By: #### BMP, CBCDIF ####[place] 510626-7110MCV (RBC) [Entitic vol]82.9 vARyzhcd15.0-100.0Raymond HospitalComment on above:Performed By: #### JOSE, CBCDIF ####[place] [address]Monocytes/100 WBC (Bld)5.6 %NormalRaymond HospitalComment on above:Performed By: #### JOSE, CBCDIF ####[place] 510626-7110Neutrophils/100 WBC (Bld)83.0 %Normal Raymond HospitalComment on above:Performed By: #### JOSE, CBCDIF ####[place] 510626-7110NRBCs0.0 /100 WBC Lnlxvx0Ffhlmyol HospitalComment on above:Performed By: #### BMP, CBCDIF ####[place] 510626-7110Platelet mean volume (Bld) [Entitic vol]10.3 fLNormal9.0-12.7Fpittsfield general hospital HospitalComment on above:Performed By: #### BMP, CBCDIF ####[place] 510626-7110Platelets (Bld) [#/Vol]271 10*3/uLNormal 150-400[facility] HospitalComment on above:Performed By: #### BMP, CBCDIF ####[place] 510626-7110RBC (Bld) [#/Vol]4.55 10*6/uLNormal3.90-5.20[facility]S HospitalComment on above:Performed By: #### BMP, CBCDIF ####[place] [address] [place], [place] [phone] (Bld) [#/Vol]8.64 10*3/uLNormal3.70-11.00[facility] Comment on above:Performed By: #### BMP, CBCDIF ####[place] [address] [place], [place] [phone] PROGon 62-04-4344XMFBXUN [facility] ID: [id number] Author: Janelle Pillai) JAYA Cast Service: ? Author Type: Registered Nurse Type: Nursing Progress Note Filed: 06/20/2020 12:33 PM Note Text: Nursing Progress Note Patient Name: Renuka Owen Patient Location: [place] [address] Daily Note: 0800: Patient awake in bed [...] any NANDV a this time. 1050: Sandhya (CHEMICAL ANALYST) Willner at bedside to discuss plan of care. Plan for discharge this afternoon. 1230: IVs removed, discharge teaching completed. No further questions at this time. This note was completed by: Bassam PadillaCharlton Memorial HospitalPROGRESSon 28-37-3261JARCHHIASVO ID: [id number] Author: Vasyl Castillo Service: Colorectal Author Type: [...] Castillo MD,PhD General Surgery, PGY3 Service Pager: [phone] After 6PM, weekends, and holidays: call center operations manager pager: [phone] Patient Active Hospital Problem List: Obesity, Class [...] 0659 06/20/20 07 - 06/21/20 0659 Shift 2557-0345 4438-5239 9683-9958 24 Hour Total 8542-0705 9627-7699 6129-7568 24 Hour Total INTAKE PO 300 300 [...] protocol in the MR contrast administration guidelines link.[facility] ID: [id number] Author: Anahi Walton Service: General Surgery Author [...] Temp src Pulse Resp SpO2 Height Weight 06/19/200 ? 157.5 cm (5' 2 ) 74.8 kg (165 lb) 06/19/202046 141/72 36.5 ?C (97.7 ?F) Oral 81 16 96 % ? ? 06/19/20 194 128/59 ? ? (!) 58 16 100 % ? ? 06/19/20 1930 136/99 ? ? 75 14 100 % ? ? 06/19/20 1915 105/89 ? ? 80 14 100 % ? ? 06/19/20 1900 134/82 ? ? 67 10 100 % ? ? 06/19/20 1845 148/69 ? ? 71 17 98 % ? ? 06/19/20 1830 149/79 ? ? 73 12 99 % ? ? 06/19/20 181 139/78 ? ? 72 12 99 % [...] post-operative care Anahi Walton MD General Surgery SPW9MrapfiGsvvkckmCharlton Memorial HospitalANES POSTPROC EVALon 71-81-5806MNUW POSTPROC EVALHNO ID: [id number] Author: Tj Hill Service: Anesthesiology Author Type: [...] June 19, 2020 TIME: 5:06 PM CSN: [id number] Hospital PRE-OPon 93-63-6380WBBQ PRE-OPHNO ID: [id number] Author: Ricardo Arvizu Service: Anesthesiology Author Type: [...] June 19, 2020 TIME: 1:32 PM CSN: [id number] Hospital 06-19-2020 NURSING [facility] ID: [id number] Author: Willow JonesRn) JAYA Mon Service: ? Author Type: Registered Nurse Type: Nursing Progress Note Filed: 06/19/2020 9:48 PM Note Text: Nursing Progress Note Patient Name: Renuka Owen Patient Location: [address]AY[address]68 Transfer Note: Patient transferred into room/unit PK322 in stable condition. Actions taken: No futher actions taken at this time. Will continue to monitor and check with patient. This note was completed by: Willow Mon RNHouse of the Good Samaritan ID: [id number] Author: Jody JonesRnJames Hanna RN Service: Nursing Author Type: Registered Nurse Type: Nursing Progress Note Filed: 06/19/2020 11:55 AM Note Text: PATIENT EDUCATION TOPIC: PROCEDURE / SURGERY: Pre-op Teaching: Logistics Protocols PATIENT NAME: Renuka Owen PATIENT LOCATION: FV OR POOL/FV OR POOL READINESS TO LEARN COGNITIVE ABILITY: [...] PROVIDED TO PATIENT: None REFERRAL (RECOMMENDATION): None [facility] ID: [id number] Author: Saman Lorenzo Service: Colorectal Author Type: Physician Type: Operative Report Filed: 06/21/2020 9:35 AM Note Text: [facility] - Operative Report RENUKA OWEN : 1950 AGE: 69. SEX: F PATIENT TYPE: I HOSP SVC: CORS LOCATION: [facility] ATTENDING PHYSICIAN: Saman Lorenzo M.D. CSN NUMBER: [id number] DATE OF SURGERY/PROCEDURE: 06/19/2020 INCISION/PROCEDURE START TIME: 1446 hours. INCISION CLOSE/PROCEDURE END TIME: 1600 hours. 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 SURGEON: Saman Lorenzo M.D. STRATEGY SPECIALIST: Dr. Krunal Meyer and Triny He. SURGERY/PROCEDURE: [...] taken to recovery room. Saman Lorenzo M.D. ARANZAT:[id number] /[id number] [facility] Developmental CenterURGICAL PATHOLOGYon 62-94-3066FUGJGGJE PATHOLOGYSpecimen originated from [facility] Specimen #: [id number] Submitting Physician: SAMAN LORENZO FINAL DIAGNOSIS Presacral tumor, en bloc coccygectomy - Epidermoid cyst. See comment. J/SEFERINO/sed 06/21/2020 COMMENT Immunohistochemical stains performed on block [...] in-situ hybridization tests have been determined by [facility]'s Emroy Snowdensich Pathology and Laboratory Medicine [facility] ([facility]ENTERPLOH) in a manner consistent with CLIA requirements. One or more of these tests have not been cleared or approved by the FDA. [facility] is regulated under CLIA as qualified [...] tumor with en bloc coccygectomy is a lora-harvye smooth and cauterized nodule with attached bone [...] 1 cm from the bone resection margin. Brazer Assembler sections are submitted as follows: A1-A3 nodule with inked outer surface; A4-A7 nodule with entire bone resection margin following light decalcification. Iban 06/20/2020 Gross examination performed at [facility], [address] [place] [address] Date of Report: 06/25/2020 Date of Procedure: 06/19/2020 Date of Receipt: 06/20/2020 Submitted by: SAMAN LORENZO Location: [id number] Diagnostic interpretation performed at [facility], [address] [place] [address]. CLIA Number: [id number] Children's Hospital [id number] (REFAIR) RENUKA OWEN ([id number]) 1950 F Date Time Provider Department 06/18/20 EVON ZUNIGA During your visit today, we recorded the following information about you: Nick Vamshi Elaina Javier [facility] 06/18/2020 12:13 PM Signed IRB# [id number], Perioperative ISchemic Evaluation 3 (POISE-3), PI: Jeovanny Duque MD. Raymond Auction Block Clerk: Evon Zuniga MD, UMANG, FAS. Outcomes Research. Anesthesia [facility]. This is a research study note. Patient assessments recorded here should not guide either clinical care or clinical decision-making. Patient contacted on behalf of Outcomes [employer] (Anesthesia [facility]) regarding eligibility for PeriOperative Ischemic Evaluation 3 [...] review. Nick Cardoso MD Research Fellow Anesthesiology [facility] Outcomes Research Department [facility] Allergies As of Date: 06/18/2020 Noted Allergy Reaction PENICILLINS 03/05/2011 4 - Hives LIPITOR (ATORVASTATIN CALCIUM) 03/05/2011 9 - Itching Date Reviewed: 06/03/2020 Reviewed by: Kathy Anglin (Pac) ANA Lopez - Fully Assessed Reason for [...] 06/03/2020 More... Encounter Status:Closed by ELAINA JAVIER [facility], NICK HOANG on 06/18/20Normal [facility] HospitalType and SCR (30D)on 86-10-9549KOW/RH(D)PositiveNoMilford Regional Medical Center HospitalComment on above:Performed By: #### [facility] WEATHERFORDR30 ####[facility] [place], [place] 53435014-452-2448EMEObz 04-77-6768KOMN Patient:Renuka Owen MRN: Height:5' 2 [patient reported[(1.575 [...] % 06/05/2020 46.0 36.0 Progress Notes (RESEARCH DRIGGS): Nick Vamshiselena Javier [facility] 06/18/2020 12:13 PM Signed IRB# [id number], Perioperative ISchemic Evaluation 3 (POISE-3), PI: Jeovanny Duque MD. Raymond Auction Block Clerk: Evon Zuniga MD, UMANG, FASA. Outcomes Research. Anesthesia [facility]. This is a research study note. Patient assessments recorded here should not guide either clinical care or clinical decision-making. Patient contacted on behalf of [employer] (Anesthesia [facility]) regarding eligibility for PeriOperative Ischemic Evaluation 3 [...] review. Nick Cardoso MD Research Fellow Anesthesiology [facility] Outcomes Research Department [facility] Progress Notes ([facility]): Megan Batista RN, RN 05/31/2020 12:22 PM Signed Call placed to patient for pre op surgical discussion. She is aware of surgery date of 06/19 and has PACC and Covid 19 testing scheduled. All bowel prep reviewed with patient and sent via My Chart. Pt appreciative of the discussion and contact. Reviewed typical post op expectations and follow up in office. [facility] [id number] HEALTHHNO ID: [id number] Author: Pierce Aguila (Tech) Service: Radiology Author Type: Head Waiter Type: Allied Health Filed: 05/15/2020 1:03 PM [...] Owen DATE: May 15, 2020 TIME: 1:02 [facility]MRI [facility] WO/W IVCONon 57-98-3544LOP RECTUM WO/W IVCON* * *Final Report* * * DATE OF EXAM: May 15 2020 1:16PM [facility] 0754 - MRI RECTUM WO/W IVCON / [...] axial oblique STIR: axial T1 in and jss-aj-pnnjf: axial HASTE: coronal large field of view [...] suspicious appearing mesorectal or extramesorectal lymph nodes. Hot Cell Technician: CARTER Transcribe Date/Time: May 15 2020 1:45P Dictated by : BLAKE PARKER MD This examination was interpreted and the report reviewed and electronically signed by: BLAKE PARKER MD on May 15 2020 2:28PM EST [id number] And Women'S HospitalPhysician Referralon 04-24-2020 Physician [id number]#1.00CD:127Normal [facility] TownshipPhysician Referralon 31-59-0014Hjltfvgci Referral [id number]#1.00CD:127NoCleveland Clinic Medina HospitalCoding Summary.on 33-35-4241Yfbtjf Summary.CODING DATE: 03/26/2020 FINAL [facility] DSCH STATUS: Home (Routine DC) PAYOR: Medicare APC [...] Kathrin Abarca CphT Date Saved: 03/26/2020 09:23 [facility] HospitalCT Maxillofacial w/o Contraston 36-99-2989BI Maxillofacial w/o ContrastExam Date/Time: 03/25/2020 11:02 EST [...] Ara Edge MD Transcribed by: SHAKILA Technologist: [facility] HospitalConsent for Treatmenton 37-55-3017Cvwviij for Treatment [id number]#1.00CD:[address] [place], [place] [address]Physician Orderon [id number] Order [id number]#1.00CD:[address] [place], [place] [address]CBCon 78-97-8025Eppzbwdvizs distribution width Auto Ratio (RBC)14.9 % Xlwzkw16.0-15.4EMH HealthcareComment on above:Performed By: #### [id number] ####[place] [address] [place] [address] Hematocrit Auto Volume Fraction (Bld)39.6 %Jgfuvl95.5-46.6EMH HealthcareComment on above:Performed By: #### [id number] ####[facility] [address] [place], [place] [address]Ghtfmwhalx mass conc (Bld)12.8 g/dL Tkdcnu67.8-15.3EMH HealthcareComment on above:Performed By: #### [id number] ####[facility] [address] [place] [address] MCH Auto Entitic mass (RBC)27.8 urYzlwjp16.5-33.0EMH HealthcareComment on above: Performed By: #### [id number] ####[facility] [address] [place], [place] [address]XNOJ Auto mass conc (RBC)32.3 g/rYIjbxid34.1-35.0EMH HealthcareComment on above:Performed By: #### [id number] ####[facility] [address] [place], [place] [address]WHY Auto Entitic volume (RBC)85.9 rKTmjszb40.4-100.0EMH HealthcareComment on above:Performed By: #### [id number] ####[facility] [address] [place] [address]KXFJ Absolute0.00 10*3/uLNormalEMH HealthcareComment on above:Performed By: #### [id number] ####[facility] [address] [place] [address]YCTA Automated0.0 /100{WBCs}NormalEMH HealthcareComment on above:Performed By: #### [id number] ####[facility] [address] [place] [address] 25[address]Otzmpvvp mean volume Auto Entitic volume (Bld) 10.9 fLNormal9.9-12.1EMH HealthcareComment on above:Performed By: #### [id number] ####[facility] [address] [place] [address] Platelets Auto #/vol (Bld)176 10*3/iUJntnag793-980OLX HealthcareComment on above:Performed By: #### [id number] ####[facility] [address] [place] [address]HQC Auto #/vol (Bld)4.61 10*6/uLNormal3.85-5.10 EMH HealthcareComment on above:Performed By: #### [id number] ####[facility] [address] [place] [address] 00[address]IZO SD46.7 fL Hlufjx41.3-48.6EMH HealthcareComment on above:Performed By: #### [id number] ####[facility] F[address] [place] [address] WBC Auto #/vol (Bld)6.2 10*3/uLNormal4.4-9.9EMH HealthcareComment on above: Performed By: #### [id number] ####[facility] [address] [place], [place] [address]Uumpizpgieih 92-63-5670Lwrweqigkm mass conc1.04 mg/dL Normal0.50-1.05EMH HealthcareComment on above:Performed By: #### [id number] ####[facility] [address] [place] [address] GFR/1.73 sq M.predicted MDRD vol rate/area53 mL/min/{1.73_m2}NormalEMH HealthcareComment on above:Result Comment: Interpretation for Chronic Kidney Disease:Stages 1&2 >60 Healthy or potential kidney damage.Mild decrease of GFR.Stage 3 30-59 Moderate decrease of GFR.Stage 4 15-29 Severe decrease of GFR.Stage 5 <15 Kidney failure or on dialysis.Performed By: #### [id number] ####[facility] [address] [place] [address] Electrolyte Panelon 73-41-9693Pogif gap 3 molar conc12 mmol/UNqlsgl08-20EYS HealthcareComment on above:Performed By: #### [id number] ####[facility] [address] [place] [address] 49[address]Dsawroxp molar yefa299 mmol/PDiqxpm36-587HJE HealthcareComment on above:Performed By: #### [id number] ####[facility] [address] [place] [address] HCO3 molar conc (Bld)30 mmol/CUqsaks86-91WFR HealthcareComment on above: Performed By: #### [id number] ####[facility] [address] [place], [place] [address]Dcvvyslmb molar conc3.7 mmol/LNormal3.5-5.1EMH HealthcareComment on above:Performed By: #### [id number] ####[facility] [address] [place], [place] [address]Vgucnz molar zcnt918 mmol/VYbtlxf880-198CWV HealthcareComment on above:Performed By: #### [id number] ####[facility] [address] [place] [address] Urea Nitrogenon 74-28-1685Yerf nitrogen mass conc28 mg/dL[address] Comment on above:Performed By: #### [id number] ####[facility] [address] [place] [address] Vital Signs Date TimeVital SignValuePerforming IqnewmnzjZdsarnoh58-80-5382 13:36-0400Body lsjmyv716.9 [facility] [address] [place], [place] [address]5910-20-2025 13:36-0400Body mass index (BMI) [Ratio]27.96 kg/m[address] 02-19-2025 13:36-0400Body .[address] 02-19-2025 13:36-0400Diastolic blood ayoecyff12 mm[Hg][address]10-20-2025 13:36-0400Systolic blood yaxcumki970 mm[Hg][address]09-30-2025 09:30-0400Body cgpory696.9 cmBryce Hendrickson MD Work Phone: [facility]09-30-2025 09:30-0400 Body mass index (BMI) [Ratio]28.08 kg/d5OhavjoBryce Hendrickson MD Work Phone: [facility]09-30-2025 09:30-0400 Body .41 kgBryce Hendrickson MD Work Phone: [facility]09-30-2025 09:30-0400 Diastolic blood zmkrdiyy21 mm[Hg]Bryce Hendrickson MD Work Phone: [facility]09-30-2025 09:30-0400 Heart rate68 /minBryce Hendrickson MD Work Phone: [facility]09-30-2025 09:30-0400 Systolic blood nowhftcv844 mm[Hg]Bryce Hendrickson MD Work Phone: [facility]09-15-2025 11:46-0400 Body isowoo787.48 cmBenjamin Ball DO Work Phone: [phone] [place], [place] 1674509-15-2025 11:46-0400 Body mass index (BMI) [Ratio]27.4 kg/b5Cnvitllq Ball DO Work Phone: [phone])[address] [place], [place] 3028509-15-2025 11:46-0400 Body .15 kgBenjamin Ball DO Work Phone: [phone])[address] [place], [place] 3028509-15-2025 11:46-0400 Diastolic blood mcygkrif30 mm[Hg]Sylvester Ball DO Work Phone: [phone] [place], [place] 3028509-15-2025 11:46-0400 Heart rate72 /minBenjamin Ball DO Work Phone: [phone])[address] [place], [place] 3028509-15-2025 11:46-0400 Respiratory rate12 /minBenjamin Ball DO Work Phone: [phone] [place], [place] 3028509-15-2025 11:46-0400 Systolic blood urpejxlh992 mm[Hg]Sylvester Ball DO Work Phone: 1([phone])[address] [place], [place] 3028509-11-2025 16:14-0400 Body vsqsdy728.48 cmBenjamin Ball DO Work Phone: [phone] [place], [place] 3028509-11-2025 16:14-0400 Body mass index (BMI) [Ratio]27.2 kg/u2Bzpbttbx Ball DO Work Phone: [phone])[facility] [place], [place] 1674509-11-2025 16:14-0400 Body jqjkwwhhxri33.8 [degF]Sylvester Ball DO Work Phone: 1(636)[facility] [place], [place] 1674509-11-2025 16:14-0400 Body hoihrc81.58 kgBenjamin Ball DO Work Phone: 1(868)[address] [place], [place] 3028509-11-2025 16:14-0400 Diastolic blood chjadmqb75 mm[Hg]Sylvester Ball DO Work Phone: [phone]09-11-2025 16:14-0400 Heart rate77 /minBenjamin Ball DO Work Phone: [phone])872-[address] [place], [place] 1674509-11-2025 16:14-0400 Respiratory rate18 /minBenjamin Ball DO Work Phone: [phone]09-11-2025 16:14-0400 SaO2% (BldA) [Mass fraction]97 %Sylvester Ball DO Work Phone: [phone])672-[address] [place], [place] 1674509-11-2025 16:14-0400 Systolic blood hyymogmf53 mm[Hg]Sylvester Ball DO Work Phone: [phone]08-01-2025 09:33-0400 Diastolic blood taikjxvc27 mm[Hg]Sylvester Ball DO Work Phone: 1(481)[address] [place], [place] 3028508-01-2025 09:33-0400 Systolic blood hlaivzhs296 mm[Hg]Sylvester Ball DO Work Phone: 1(236)[address] [place], [place] 3028508-01-2025 06:19-0400 Body .9 kgBenjamin Ball DO Work Phone: 1(915)[address] [place], [place] 3028508-01-2025 06:16-0400 Body mvfhymfspup11.5 [degF]Sylvester Ball DO Work Phone: 1(675)[address]08-01-2025 06:16-0400 Heart bcgt863 /minBenjamin Ball DO Work Phone: 1(689)191-[address] [place], [place] 1674508-01-2025 06:16-0400 Respiratory rate16 /minBenjamin Ball DO Work Phone: 1(190)[address] [place], [place] 3028508-01-2025 06:16-0400 SaO2% (BldA) [Mass fraction]96 %Sylvester Ball DO Work Phone: 1(865)[address]07-29-2025 12:55-0400 Body tembgd432.48 cmBenjamin Ball DO Work Phone: 1(419)[address]07-15-2025 08:54-0400 Body igrecvjugzk19 [degF]Sylvester Ball DO Work Phone: 1(726)[address] [place], [place] 3028507-15-2025 08:54-0400 Diastolic blood btuaewnu28 mm[Hg]Sylvester Ball DO Work Phone: 1(003)[address] [place], [place] 3028507-15-2025 08:54-0400 Heart zbxu958 /minBenjamin Ball DO Work Phone: 1(774)[address] [place], [place] 3028507-15-2025 08:54-0400 Respiratory rate18 /minBenjamin Ball DO Work Phone: 1(439)[address] [place], [place] 3028507-15-2025 08:54-0400 SaO2% (BldA) [Mass fraction]98 %Sylvester Ball DO Work Phone: 1(753)[address] [place], [place] 3028507-15-2025 08:54-0400 Systolic blood qaeoajux889 mm[Hg]Sylvester Ball DO Work Phone: 1(037)[address] [place], [place] 3028507-15-2025 06:00-0400 Body lwxqox71.7 kgBenjamin Ball DO Work Phone: 1(698)[address] [place], [place] 3028507-14-2025 14:31-0400 Body xpgyoa283.02 cmBenjamin Ball DO Work Phone: 1(543)[address] [place], [place] 3028507-12-2025 07:00-0400 Inhaled oxygen flow rate2 L/minBenjamin Ball DO Work Phone: 1(195)[address] [place], [place] 3028507-11-2025 11:07-0400 Inhaled oxygen cwsbazlvmqmhl46 %Sylvester Ball DO Work Phone: 1(976)[address] [place], [place] 3028507-03-2025 16:35-0400 Body .02 cmBenjamin Ball DO Work Phone: 1(689)[address] [place], [place] 3028507-03-2025 16:35-0400 Body lyyuauzjlxy19.6 [degF]Sylvester Ball DO Work Phone: 1(506)[address] [place], [place] 3028507-03-2025 16:35-0400 Body cepntr55.8 kgBenjamin Ball DO Work Phone: 1(031)548-84[facility]07-03-2025 16:35-0400 Diastolic blood znveapwd80 mm[Hg]Sylvester Ball DO Work Phone: 1(725)179-05[facility]07-03-2025 16:35-0400 Heart rate80 /minBenjamin Ball DO Work Phone: 1(037)137-[address] [place], [place] 1674507-03-2025 16:35-0400 Inhaled oxygen flow rate3 L/minBenjamin Ball DO Work Phone: 1(560)853-[address] [place], [place] 1674507-03-2025 16:35-0400 Respiratory rate14 /minBenjamin Ball DO Work Phone: 1(006)945-[address] [place], [place] 1674507-03-2025 16:35-0400 SaO2% (BldA) [Mass fraction]98 %Sylvester Ball DO Work Phone: 1(057)748-[address] [place], [place] 1674507-03-2025 16:35-0400 Systolic blood eazlkrhd11 mm[Hg]Sylvester Ball DO Work Phone: 1(959)164-[address] [place], [place] 1674506-23-2025 11:00-0400 Body jviryj079.5 cmBran Linda MD Work Phone: 1(423)7-[address] [place], [place] [address]Puzjkdwylh38-88-8629 11:00-0400Body mass index (BMI) [Ratio]28.53 kg/h3DkvxyjjBran Linda MD Work Phone: 1(718)2-[address] [place], [place] [address]Dsvnhtfjfp73-34-2357 11:00-0400Body ylhktm28.76 kgBran Linda MD Work Phone: 6(091)9-[address] [place], [place] [address]Javndopgxu63-87-8556 11:00-0400Diastolic blood mm[Hg]Bran Linda MD Work Phone: 5(371)6-[address] [place], [place] [address]Ylyalusygd30-36-7219 11:00-0400Systolic blood mm[Hg]Bran Linda MD Work Phone: 9(144)3-[address] [place], [place] [address]Krnlanxteu42-72-2595 11:50-0400Body bhzrvi996.48 [facility] 11:50-0400Body mass index (BMI) [Ratio]30 kg/x6ImtyqefizShelby Memorial Hospital05-30-2025 11:50-0400Body weight 74.61 kgS[facility]05-30-2025 11:50-0400Diastolic blood ylouwjia34 mm[Hg][facility]05-30-2025 11:50-0400Heart rate73 /[facility]05-30-2025 11:50-0400Respiratory rate12 /[facility]05-30-2025 11:50-0400Systolic blood amdlxmnt974 mm[Hg][facility]05-29-2025 10:08-0400Body xtizmn596.5 cmSteven Rusher DPM Work Phone: 1(707)[address]05-29-2025 10:08-0400Body mass index (BMI) [Ratio]28.9 kg/y3Kgyhsk Rusher DPM Work Phone: 1(915)[address]05-29-2025 10:08-0400Body lehofo01.67 kgSteven Rusher DPM Work Phone: 1(955)[address]05-07-2025 14:33-0400Body .5 cmSteven Rusher DPM Work Phone: 1(711)[address] [place], [place] 6742005-07-2025 14:33-0400Body mass index (BMI) [Ratio]28.9 kg/y3Kmfuua Rusher DPM Work Phone: 1(741)[address]05-07-2025 14:33-0400Body wouevt44.67 kgSteven Rusher DPM Work Phone: 1(017)[address]05-05-2025 10:32-0400Body nuuyba146.48 cmBenjamin Ball DO Work Phone: [facility]05-05-2025 10:32-0400 Body mass index (BMI) [Ratio]29.1 kg/w7Wukaratf Ball DO Work Phone: [facility]05-05-2025 10:32-0400 Body .29 kgBenjamin Ball DO Work Phone: [facility]05-05-2025 10:32-0400 Diastolic blood lzzohneg98 mm[Hg]Sylvester Ball DO Work Phone: [facility]05-05-2025 10:32-0400 Heart rate67 /minBenjamin Ball DO Work Phone: [facility]05-05-2025 10:32-0400 Respiratory rate12 /minBenjamin Ball DO Work Phone: [facility]05-05-2025 10:32-0400 SaO2% (BldA) [Mass fraction]99 %Sylvester Ball DO Work Phone: [facility]05-05-2025 10:32-0400 Systolic blood ewidfkrs425 mm[Hg]Sylvester Ball DO Work Phone: [facility]04-21-2025 11:04-0400 Body mass index (BMI) [Ratio]30.11 kg/x7XenwdJacob Mercado MD Work Phone: [facility]04-21-2025 11:04-0400Body temperature 97.39 [degF]Jacob Mercado MD Work Phone: [facility]04-21-2025 11:04-0400Body ugyekv55.7 kgJacob Mercado MD Work Phone: [facility]04-21-2025 11:04-0400Diastolic blood amflvghx92 mm[Hg]Jacob Mercado MD Work Phone: [facility]04-21-2025 11:04-0400Heart rate67 /min Jacob Mercado MD Work Phone: [facility]04-21-2025 11:04-0400Respiratory rate 18 /minJacob Mercado MD Work Phone: [facility]04-21-2025 11:04-4063PgW5% (BldA) [Mass fraction]99 %Jacob Mercado MD Work Phone: [facility]04-21-2025 11:04-0400Systolic blood bkrzjlru040 mm[Hg]Jacob Mercado MD Work Phone: [facility]03-03-2025 13:24-0500Body yoouza679.48 cmArthur William PA-C Work Phone: [facility]03-03-2025 13:24-0500 Body mass index (BMI) [Ratio]27.7 kg/p4Ocdkyv William PA-C Work Phone: [facility]03-03-2025 13:24-0500 Body lysnayvaokj55.8 [degF]Romel William PA-C Work Phone: 9(712)837-18[facility]03-03-2025 13:24-0500 Body odqmde08.71 kgArthur William PA-C Work Phone: [facility]03-03-2025 13:24-0500 Diastolic blood yikewkia63 mm[Hg]Romel William PA-C Work Phone: 2(489)375-89[facility]03-03-2025 13:24-0500 Heart rate80 /minArthur William PA-C Work Phone: [facility]03-03-2025 13:24-0500 Respiratory rate16 /minArthur William PA-C Work Phone: [facility]03-03-2025 13:24-0500 SaO2% (BldA) [Mass fraction]97 %Romel William PA-C Work Phone: 1(679)502-52[facility]03-03-2025 13:24-0500 Systolic blood nuvyrzdz470 mm[Hg]Romel William PA-C Work Phone: 8(193)737-09[facility]02-27-2025 10:06-0500 Body .48 cmArtjoshuar William PA-C Work Phone: 1(728)447-39[facility]02-27-2025 10:06-0500 Body mass index (BMI) [Ratio]28.5 kg/l3Zjnmkl William PA-C Work Phone: [facility]02-27-2025 10:06-0500 Body .76 kgArthur William PA-C Work Phone: 1(585)948-[address] [place], [place] 4154702-03-2025 12:00-0500 Diastolic blood mm[Hg]Romel William PA-C Work Phone: 3(912)362-[address] [place], [place] 4154702-03-2025 12:00-0500 Heart rate94 /minArthur William PA-C Work Phone: 4(163)291-[address] [place], [place] 4154702-03-2025 12:00-0500 Respiratory rate17 /minArthur William PA-C Work Phone: 8(167)352-[address] [place], [place] 4154702-03-2025 12:00-0500 SaO2% (BldA) [Mass fraction]98 %Romel William PA-C Work Phone: 6(831)625-[address] [place], [place] 4154702-03-2025 12:00-0500 Systolic blood pftmaabh588 mm[Hg]Romel William PA-C Work Phone: 9(084)318-49[facility]02-03-2025 09:44-0500 Body ayhgkhowmmp54 [degF]Romel William PA-C Work Phone: 1(564)740-[address] [place], [place] 4154702-03-2025 06:00-0500 Body kgArthur William PA-C Work Phone: 3(053)472-[address] [place], [place] 4154701-31-2025 14:18-0500 Body hsduel199.48 cmArthur William PA-C Work Phone: 8(148)266-[address] [place], [place] 4154701-30-2025 11:40-0500 Body hrepxk558.48 cmArthur William PA-C Work Phone: 1(916)644-[address] [place], [place] 4154701-30-2025 11:40-0500 Body twfqrbaizoh13.6 [degF]Romel William PA-C Work Phone: 1(563)[address]01-30-2025 11:40-0500 Body egrhol11.3 kgSandeeur William PA-C Work Phone: 4(413)[address]01-30-2025 11:40-0500 Diastolic blood ovqsyidx01 mm[Hg]Romel William PA-C Work Phone: 1(909)[address]01-30-2025 11:40-0500 Heart rate77 /minRomel William PA-C Work Phone: 3(884)[address]01-30-2025 11:40-0500 Respiratory rate16 /minSandeeur William PA-C Work Phone: 9(292)[address]01-30-2025 11:40-0500 SaO2% (BldA) [Mass fraction]97 %Romel William PA-C Work Phone: 4(808)[address]01-30-2025 11:40-0500 Systolic blood shapvunh171 mm[Hg]Romel William PA-C Work Phone: 4(812)[address]01-14-2025 14:13-0500 Body fuctbj907.9 Hortensia Khan DPM Work Phone: 6(171)110-[address] [place], [place] [address]Naiycqwfrm02-59-4631 14:13-0500Body mass index (BMI) [Ratio]28.91 kg/b1HlleybqMarce Stoneher DPM Work Phone: 0(412)164[facility]88[facility] HospitalPtfypssdjg41-75-9553 14:13-0500Body pbtobq20.4 kg Marce Khan DPM Work Phone: 8(509)821-04[facility] HospitalRceokfytkr40-89-2463 14:00-0500Body uzpbuj349.94 Kathlene William PA-C Work Phone: 8(892)633-[address] [place], [place] 4154701-10-2025 14:00-0500 Body mass index (BMI) [Ratio]29.7 kg/x2Toszpl William PA-C Work Phone: [facility]01-10-2025 14:00-0500 Body .32 kgArthur William PA-C Work Phone: [facility]01-10-2025 14:00-0500 Diastolic blood nlxxitob61 mm[Hg]Romel William PA-C Work Phone: [facility]01-10-2025 14:00-0500 Heart rate65 /minArthur William PA-C Work Phone: [facility]01-10-2025 14:00-0500 Respiratory rate12 /minArthur William PA-C Work Phone: [facility]01-10-2025 14:00-0500 Systolic blood mm[Hg]Romel William PA-C Work Phone: [facility]01-02-2025 11:16-0500 Body bnmero837.9 cmBryce Hendrickson MD Work Phone: [facility]01-02-2025 11:16-0500 Body mass index (BMI) [Ratio]28.91 kg/l2AqzqoxBryce Hendrickson MD Work Phone: [facility]01-02-2025 11:16-0500 Body gayzif75.4 kgBryce Hendrickson MD Work Phone: [facility]01-02-2025 11:16-0500 Diastolic blood mm[Hg]Bryce Hendrickson MD Work Phone: [facility]01-02-2025 11:16-0500 Heart rate76 /minBryce Hendrickson MD Work Phone: [facility]01-02-2025 11:16-0500 Systolic blood nlijvosc37 mm[Hg]Bryce Hendrickson MD Work Phone: [facility]12-11-2024 14:55-0500 Body vryfpf108.94 cmArtjoshuar William PA-C Work Phone: 1(934)470-34[facility]12-11-2024 14:55-0500 Body mass index (BMI) [Ratio]29 kg/c4Ozqxnq William PA-C Work Phone: 1(270)192-06[facility]12-11-2024 14:55-0500 Body kitudo12.85 kgArthur William PA-C Work Phone: 1(462)[address]12-11-2024 14:55-0500 Diastolic blood bhmmwpux50 mm[Hg]Romel William PA-C Work Phone: 1(516)24[address]12-11-2024 14:55-0500 Heart rate77 /minArthur William PA-C Work Phone: 1(062)409-[address] [place], [place] 4154712-11-2024 14:55-0500 Respiratory rate12 /minArthur William PA-C Work Phone: 1(537)568-[address] [place], [place] 4154712-11-2024 14:55-0500 Systolic blood mm[Hg]Romel William PA-C Work Phone: 1(126)201-[address] [place], [place] 4154712-08-2024 14:00-0500 Diastolic blood jhvhotvd06 mm[Hg]Romel William PA-C Work Phone: 1(763)174-[address] [place], [place] 4154712-08-2024 14:00-0500 Heart rate86 /minArthur William PA-C Work Phone: 1(579)590-[address] [place], [place] 4154712-08-2024 14:00-0500 Respiratory rate20 /minArthur William PA-C Work Phone: 1(037)490-[address] [place], [place] 4154712-08-2024 14:00-0500 SaO2% (BldA) [Mass fraction]99 %Romel William PA-C Work Phone: 1(720)156-[address] [place], [place] 4154712-08-2024 14:00-0500 Systolic blood iczuvmgi019 mm[Hg]Romel William PA-C Work Phone: 1(209)198-[address] [place], [place] 4154712-08-2024 09:00-0500 Body ssyowdlvhqg61.6 [degF]Romel William PA-C Work Phone: 1(234)[address]12-08-2024 06:44-0500 Body wdxklu88.4 kgArthur William PA-C Work Phone: 1(591)[address]2024 19:56-0500 Body ijtwxz776.21 cmArthur William PA-C Work Phone: 1(359)[address]251 [address]12-03-2024 14:25-0500 Body .94 cmArthur William PA-C Work Phone: 1(992)606-[address] [place], [place] 4154712-03-2024 14:25-0500 Body mass index (BMI) [Ratio]28.5 kg/q0Rgphyz William PA-C Work Phone: 1(030)[address]12-03-2024 14:25-0500 Body ldizto12.66 kgArthur William PA-C Work Phone: 1(332)489-[address] [place], [place] 4154712-03-2024 14:25-0500 Diastolic blood mm[Hg]Romel William PA-C Work Phone: 1(767)420-[address] [place], [place] 4154712-03-2024 14:25-0500 Heart rate62 /minArthur William PA-C Work Phone: 1(919)225-[address] [place], [place] 4154712-03-2024 14:25-0500 Respiratory rate12 /minArthur William PA-C Work Phone: 4(029)418-[address] [place], [place] 4154712-03-2024 14:25-0500 Systolic blood tmyuadcw223 mm[Hg]Romel William PA-C Work Phone: 1(435)950-[address] [place], [place] 4154711-06-2024 09:09-0500 Body .9 Shamir Cope MD Work [facility] HospitalUfltukqrnd09-48-9095 09:09-0500Body mass index (BMI) [Ratio]28.91 kg/x2SriasmChuck Cope MD Work Phone: [facility] HospitalDzpubddyga68-17-7253 09:09-0500Body xuejip98.4 kg Chuck Cope MD Work Phone: 1(555)0860546[facility] HospitalFcaqmfqrdw92-50-0708 09:09-0500Diastolic blood ifwvzstf66 mm[Hg]Chuck Cope MD Work Phone: [facility] HospitalWbrdpebhma80-21-8138 09:09-0500Systolic blood hljostgx70 mm[Hg]Chuck Cope MD Work Phone: [facility] HospitalDbykqxusvo77-79-8083 11:04-0400Body xgdeix168.94 cmDO Sylvester Ball Work Phone: 1(500)[address] [place], [place] 3028510-30-2024 11:04-0400 Body mass index (BMI) [Ratio]28.8 kg/m2DO Sylvester Ball Work Phone: 1(757)[address] [place], [place] 3028510-30-2024 11:04-0400 Body uzgafk04.11 kgDO Sylvester Ball Work Phone: 1(175)[address] [place], [place] 3028510-30-2024 11:04-0400 Diastolic blood mvanmqyl49 mm[Hg]DO Sylvester Ball Work Phone: 1(841)[address] [place], [place] 3028510-30-2024 11:04-0400 Heart rate62 /minDO Sylvester Ball Work Phone: 1(329)[address]10-30-2024 11:04-0400 Respiratory rate12 /minDO Sylvester Ball Work Phone: 1(231)[facility] [place], [place] 1674510-30-2024 11:04-0400 Systolic blood dwoisctk106 mm[Hg]DO Sylvester Ball Work Phone: 1(598)[address]10-08-2024 13:08-0400 Body vwojfh412.94 cmDO Sylvester Ball Work Phone: 1(600)[address] [place], [place] 3028510-08-2024 13:08-0400 Body mass index (BMI) [Ratio]28.3 kg/m2DO Sylvester Ball Work Phone: [facility]10-08-2024 13:08-0400 Body dbooqz44.03 kgDO Sylvester Ball Work Phone: 1(623)485-51[facility]09-17-2024 13:24-0400 Body xakirq572.9 [facility] [address] [place], [place] 5395909-17-2024 13:24-0400 Body mass index (BMI) [Ratio]29.66 kg/m2Ely [address] [place] [address] 01-18-2024 13:24-0400Body dojpcd58.[address] 01-18-2024 13:24-0400Diastolic blood dtuvgnqv04 mm[Hg][address]09-17-2024 13:24-0400Systolic blood ousfcugu659 mm[Hg][address]08-20-2024 09:40-0400Diastolic blood syhkurae88 mm[Hg]DO Sylvester Ball Work Phone: 1(630)018-89[facility]08-20-2024 09:40-0400 Heart rate55 /minDO Sylvester Ball Work Phone: 1(468)644-07[facility]08-20-2024 09:40-0400 SaO2% (BldA) [Mass fraction]99 %DO Sylvester Ball Work Phone: 1(809)933-12[facility]08-20-2024 09:40-0400 Systolic blood mm[Hg]DO Sylvester Ball Work Phone: 1(439)092-06[facility]08-20-2024 09:05-0400 Inhaled oxygen flow rate3 L/minDO Sylvester Ball Work Phone: 1(078)641-29[facility]08-20-2024 08:01-0400 Body vaullm512.21 cmDO Sylvester Ball Work Phone: 1(951)566-15[facility]08-20-2024 08:01-0400 Body .3 kgDO Sylvester Ball Work Phone: 1(419)[address] [place], [place] 3028508-20-2024 08:01-0400 Respiratory rate16 /minDO Sylvester Ball Work Phone: 1(334)[address] [place], [place] 3028508-12-2024 15:03-0400 Body sfzajk628.94 cmDO Sylvester Ball Work Phone: 1419)[address] [place], [place] 3028508-12-2024 15:03-0400 Body mass index (BMI) [Ratio]28.8 kg/m2DO Sylvester Ball Work Phone: 1(419)[address] [place], [place] 3028508-12-2024 15:03-0400 Body kmkqdy65.11 kgDO Sylvester Ball Work Phone: 1419)[address] [place], [place] 3028508-12-2024 15:03-0400 Diastolic blood bjhycirq25 mm[Hg]DO Sylvester Ball Work Phone: 1(589)[address] [place], [place] 3028508-12-2024 15:03-0400 Heart rate73 /minDO Sylvester Ball Work Phone: 1(419)[address] [place], [place] 3028508-12-2024 15:03-0400 Respiratory rate12 /minDO Sylvester Ball Work Phone: 1(394)[address] [place], [place] 3028508-12-2024 15:03-0400 Systolic blood mehumcga07 mm[Hg]DO Sylvester Ball Work Phone: 1(340)[address] [place], [place] 3028507-24-2024 10:50-0400 Body kiwaou053.94 cmDO Sylvester Ball Work Phone: 1(301)[address] [place], [place] 3028507-24-2024 10:50-0400 Body mass index (BMI) [Ratio]29.5 kg/m2DO Sylvester Ball Work Phone: 1419)[address] [place], [place] 3028507-24-2024 10:50-0400 Body gayzgu66 kgDO Sylvester Ball Work Phone: 1419)[address] [place], [place] 3028507-01-2024 13:04-0400 Body aczmlc184.94 cmDO Sylvester Ball Work Phone: 1419)[address] [place], [place] 3028507-01-2024 13:04-0400 Body mass index (BMI) [Ratio]29.6 kg/m2DO Sylvester Ball Work Phone: 1(306)[address]07-01-2024 13:04-0400 Body .21 kgDO Sylvester Ball Work Phone: 1(611)[address] [place], [place] 3028507-01-2024 13:04-0400 Diastolic blood bxifgenh21 mm[Hg]DO Sylvester Ball Work Phone: 1(330)[address]99 [address]07-01-2024 13:04-0400 Heart rate66 /minDO Sylvester Ball Work Phone: 1(281)[address] [place], [place] 3028507-01-2024 13:04-0400 SaO2% (BldA) [Mass fraction]100 %DO Sylvester Ball Work Phone: 1(262)[address] [place], [place] 3028507-01-2024 13:04-0400 Systolic blood crluxxpf519 mm[Hg]DO Sylvester Ball Work Phone: 1(384)[address] [place], [place] 3028506-18-2024 10:10-0400 Body xzavfq632.94 cmDO Sylvester Ball Work Phone: 1(892)[address] [place], [place] 3028506-18-2024 10:10-0400 Body mass index (BMI) [Ratio]29.5 kg/m2DO Sylvester Ball Work Phone: 1(328)[address] [place], [place] 3028506-18-2024 10:10-0400 Body rxbegh89.93 kgDO Sylvester Ball Work Phone: 1(764)[address]05-14-2024 15:14-0400 Body oacssg669.94 cmDO Sylvester Ball Work Phone: 1(198)[address]05-14-2024 15:14-0400 Body mass index (BMI) [Ratio]28.7 kg/m2DO Sylvester Ball Work Phone: 1(411)[address]05-14-2024 15:14-0400 Body pajutj80 kgDO Sylvester Ball Work Phone: 1(440)[address] [place], [place] 3028505-14-2024 15:14-0400 Diastolic blood wphjkodf19 mm[Hg]DO Sylvester Ball Work Phone: 1(253)189-[address] [place], [place] 1674505-14-2024 15:14-0400 Heart rate65 /minDO Sylvester Ball Work Phone: 1(242)231-[address] [place], [place] 1674505-14-2024 15:14-0400 Respiratory rate12 /minDO Sylvester Ball Work Phone: 1(403)925-[address] [place], [place] 1674505-14-2024 15:14-0400 Systolic blood kptisaui312 mm[Hg]DO Sylvester Ball Work Phone: 1(344)[address]05-07-2024 08:57-0400 Diastolic blood julmzwoc99 mm[Hg]DO Sylvester Ball Work Phone: 1(215)[address] [place], [place] 3028505-07-2024 08:57-0400 Heart rate64 /minDO Sylvester Ball Work Phone: 1(356)[address] [place], [place] 3028505-07-2024 08:57-0400 Respiratory rate16 /SalenaO Sylvester Ball Work Phone: 1(545)[address] [place], [place] 3028505-07-2024 08:57-0400 SaO2% (BldA) [Mass fraction]98 %DO Sylvester Ball Work Phone: 1(194)[address] [place], [place] 3028505-07-2024 08:57-0400 Systolic blood mm[Hg]DO Sylvester Ball Work Phone: 1(444)[address] [place], [place] 3028505-07-2024 08:21-0400 Inhaled oxygen flow rate3 L/SalenaO Sylvester Ball Work Phone: 1(660)[address] [place], [place] 3028505-07-2024 07:26-0400 Body gnjmpu296.94 cmDO Sylvester Ball Work Phone: 1(935)[address] [place], [place] 3028505-07-2024 07:26-0400 Body .21 kgDO Sylvester Ball Work Phone: 1(313)[address] [place], [place] 3028503-19-2024 10:36-0400 Body fiiidl900.94 [facility]03-19-2024 10:36-0400Body mass index (BMI) [Ratio]29.8 kg/p8IfpsrtivcS[facility] Hospital03-19-2024 10:36-0400Body nljzpo28.66 kgShelby [facility] Hospital03-14-2024 10:39-0400Body yfrwvr531.9 cmBryce Hendrickson MD Work Phone: [facility]03-14-2024 10:39-0400 Body mass index (BMI) [Ratio]29.66 kg/o4WzkgkyBryce Hendrickson MD Work Phone: [facility]03-14-2024 10:39-0400 Body noqwya56.22 kgBryce Hendrickson MD Work Phone: 1(492)472-05[facility]03-14-2024 10:39-0400 Diastolic blood pdtcepkj27 mm[Hg]Bryce Hendrickson MD Work Phone: 9(219)892-15[facility]03-14-2024 10:39-0400 Heart rate64 /minBryce Hendrickson MD Work Phone: [facility]03-14-2024 10:39-0400 Systolic blood bibjgyfi597 mm[Hg]Bryce Hendrickson MD Work Phone: [facility]02-20-2024 13:28-0500 Body .5 cmJacob Mercado MD Work Phone: [facility]02-20-2024 13:28-0500Body temperature 97.59 [degF]Jacob Mercado MD Work Phone: [facility]02-20-2024 13:28-0500Body aicahd16.6 kgJacob Mercado MD Work Phone: [facility]02-20-2024 13:28-0500Diastolic blood xdzzprlo60 mm[Hg]Jacob Mercado MD Work Phone: [facility]02-20-2024 13:28-0500Heart rate67 /min Jacob Mercado MD Work Phone: [facility]02-20-2024 13:28-0500Respiratory rate 16 /minJacob Mercado MD Work Phone: [facility]02-20-2024 13:28-8916SlA3% (BldA) [Mass fraction]96 %Jacob Mercado MD Work Phone: [facility]02-20-2024 13:28-0500Systolic blood wepanoqm823 mm[Hg]Jacob Mercado MD Work Phone: [facility]02-19-2024 10:54-0500Body uoctoq641.94 cmDO [employer] Work Phone: [facility]02-19-2024 10:54-0500 Body mass index (BMI) [Ratio]29.5 kg/m2DO [employer] Work Phone: [facility]02-19-2024 10:54-0500 Body .93 kgDO [employer] Work Phone: [facility]01-24-2024 10:40-0500 Body .94 cmJeflakitoica [employer] Other [facility]01-24-2024 10:40-0500 Body mass index (BMI) [Ratio]30.04 kg/p4Fljaiqa [employer] [facility] [employer] Other [phone] 10:40-0500Body pdpseq80.12 kgJessica [employer] Other [facility]12-28-2023 14:00-0500 Body inqzmz541.94 cmBenjaTHE [employer] Other [facility]12-28-2023 14:00-0500 Body mass index (BMI) [Ratio]30.15 kg/q1Qudsbjrj [facility] Other [place] [employer] Other [id number] 14:00-0500Body viunpq28.39 kgBenjaTHE Football App Other [facility]12-28-2023 14:00-0500 Diastolic blood kbizfyid77 mm[Hg]Sylvester Ball Other [facility]12-28-2023 14:00-0500 Systolic blood vhzwmlva038 mm[Hg]Sylvester Ball Other [facility]12-26-2023 11:00-0500 Body vactjg756.94 cmDale Moreau Other [facility]12-26-2023 11:00-0500 Body mass index (BMI) [Ratio]29.66 kg/m2Dale Moreau Other [employer] Other 12-26-2023 11:00-0500Body .22 kgDale Moreau Other [facility] [employer] Other 12-26-2023 11:00-0500Body ifdkhh55.21 kgDO Sylvester Ball Work Phone: 1(986)828-35[facility]12-19-2023 11:34-0500 Diastolic blood fuicfqsh82 mm[Hg]DO Sylvester Ball Work Phone: 1(591)322-47[facility]12-19-2023 11:34-0500 Systolic blood jvwmaegk366 mm[Hg]DO Sylvester Ball Work Phone: 1([phone])349-11[facility]12-19-2023 06:13-0500 Body hjobpkhinzi20.4 [degF]DO Sylvester Ball Work Phone: 1(422)453-61[facility]12-19-2023 06:13-0500 Body ofacbp12 kgDO Sylvester Ball Work Phone: 1(656)993-62[facility]12-19-2023 06:13-0500 Heart rate84 /minDO Sylvester Ball Work Phone: 1(995)921-60[facility]12-19-2023 06:13-0500 Respiratory rate18 /minDO Sylvester Ball Work Phone: 1(221)711-57[facility]12-19-2023 06:13-0500 SaO2% (BldA) [Mass fraction]99 %DO Sylvester Ball Work Phone: 1(740)729-[address] [place], [place] 1674512-15-2023 08:45-0500 Body tjmvow754.94 cmDO Sylvester Ball Work Phone: 1(332)[address] [place], [place] 3028512-14-2023 11:35-0500 Body xvbojvybdrx05.7 [degF]DO Sylvester Ball Work Phone: 1(485)[address] [place], [place] 3028512-14-2023 11:35-0500 Diastolic blood ftihhifh00 mm[Hg]DO Sylvester Ball Work Phone: 1(956)[address]12-14-2023 11:35-0500 Heart rate71 /minDO Sylvester Ball Work Phone: 1(101)[address] [place], [place] 3028512-14-2023 11:35-0500 Respiratory rate12 /minDO Sylvester Ball Work Phone: 1(045)[address] [place], [place] 3028512-14-2023 11:35-0500 SaO2% (BldA) [Mass fraction]100 %DO Sylvester Ball Work Phone: 1(445)[address] [place], [place] 3028512-14-2023 11:35-0500 Systolic blood mm[Hg]DO Sylvester Ball Work Phone: 1(070)[address] [place], [place] 3028512-14-2023 06:00-0500 Body oclkmn84 kgDO Sylvester Ball Work Phone: 1(765)[address] [place], [place] 3028512-12-2023 10:50-0500 Inhaled oxygen flow rate2 L/minDO Sylvester Ball Work Phone: 1(035)[address] [place], [place] 3028512-12-2023 06:58-0500 Body jwqivu835.21 cmDO Sylvester Ball Work Phone: 1(185)[address] [place], [place] 3028512-12-2023 06:58-0500 Body mass index (BMI) [Ratio]28.8 kg/m2DO Sylvester Ball Work Phone: 1(404)[address] [place], [place] 3028512-08-2023 07:17-0500 Body yfudet867.21 cmDO Sylvester Ball Work Phone: 1(213)[address] [place], [place] 3028512-08-2023 07:17-0500 Body mass index (BMI) [Ratio]28.7 kg/m2DO Sylvester Ball Work Phone: 1(724)283-21[facility]12-08-2023 07:17-0500 Body vkazzi71 kgDO Sylvester Ball Work Phone: 1(249)109-[address] [place], [place] 1674512-08-2023 05:55-0500 Body hdejlnqkrim86.6 [degF]DO Sylvester Ball Work Phone: 1(593)624-[address] [place], [place] 1674512-08-2023 05:55-0500 Diastolic blood ckrgeinf79 mm[Hg]DO Sylvester Ball Work Phone: 1(295)[address]12-08-2023 05:55-0500 Heart rate63 /minDO Sylvester Ball Work Phone: 1(721)490-[address] [place], [place] 1674512-08-2023 05:55-0500 Respiratory rate18 /minDO Sylvester Ball Work Phone: 1(923)417-[address] [place], [place] 1674512-08-2023 05:55-0500 SaO2% (BldA) [Mass fraction]100 %DO Sylvester Ball Work Phone: 1(481)421-[address] [place], [place] 1674512-08-2023 05:55-0500 Systolic blood mm[Hg]DO Sylvester Ball Work Phone: 1(677)766-33[facility]11-16-2023 10:58-0500 Body zuptto767.9 cmBryce Hendrickson MD Work Phone: [facility]11-16-2023 10:58-0500 Body mass index (BMI) [Ratio]29.48 kg/p3FehuerBryce Hendrickson MD Work Phone: [facility]11-16-2023 10:58-0500 Body qcanim23.76 kgBryce Hendrickson MD Work Phone: [facility]11-16-2023 10:58-0500 Diastolic blood mdzuspbg29 mm[Hg]Bryce Hendrickson MD Work Phone: 3(560)988-[address] [place], [place] 5233011-16-2023 10:58-0500 Heart rate62 /minBryce Hendrickson MD Work Phone: [facility]11-16-2023 10:58-0500 Systolic blood mm[Hg]Bryce Hendrickson MD Work Phone: [facility]11-08-2023 11:00-0500 Body gtruhg090.94 cmRadha Moreau Other [place] [employer] Other 11-08-2023 11:00-0500Body mass index (BMI) [Ratio] 29.21 kg/d3Inuypw Lizzeth Other [facility] Other 11-08-2023 11:00-0500Body atrtmm03.13 kgRadha Lizzeth Other [place] [employer] Other 11-08-2023 11:00-0500Diastolic blood rrlaqkao70 mm[Hg] Radha Moreau Other [facility] Other 11-08-2023 11:00-0500Systolic blood yphhnbqc942 mm[Hg] Radha Moreau Other [facility] Other 10-31-2023 10:00-0400Body bkudxl018.5 cmBryce Hendrickson MD Work Phone: [facility]10-31-2023 10:00-0400 Body mass index (BMI) [Ratio]28.35 kg/e8PhbvnsBryce Hendrickson MD Work Phone: [facility]10-31-2023 10:00-0400 Body plurlp98.31 kgBryce Hendrickson MD Work Phone: [facility]10-31-2023 10:00-0400 Diastolic blood vwccwwar32 mm[Hg]Bryce Hendrickson MD Work Phone: [facility]10-31-2023 10:00-0400 Heart rate68 /Aleena Hendrickson MD Work Phone: [facility]10-31-2023 10:00-0400 Systolic blood haulwfyr751 mm[Hg]Bryce Hendrickson MD Work Phone: [facility]10-26-2023 10:20-0400 Body clumow116.94 cmDalela Moreau Other [employer] Other 10-26-2023 10:20-0400Body mass index (BMI) [Ratio] 29.66 kg/m2Dale Moreau Other [employer] Other 10-26-2023 10:20-0400Body rgkohw19.22 kgDalela Moreau Other [employer] Other 09-21-2023 09:20-0400Body .94 cmDale Moreau Other [employer] Other 09-21-2023 09:20-0400Body mass index (BMI) [Ratio] 29.09 kg/m2Dalela Moreau Other [employer] Other 09-21-2023 09:20-0400Body .85 kgDale Moreau Other [employer] Other 09-21-2023 09:20-0400Diastolic blood ihmpvfyi65 mm[Hg] Devin Moreau Other [employer] Other 09-21-2023 09:20-0400Systolic blood nxyfpeny097 mm[Hg] Devin Moreau Other [employer] Other 09-07-2023 08:45-0400Body kailuz219.94 cmBenjamin Ball Other [employer] Other 09-07-2023 08:45-0400Body mass index (BMI) [Ratio] 29.51 kg/h1Jqatmmqs Ball Other [employer] Other 09-07-2023 08:45-0400Body tnoxgs90.85 kgBenjamin Ball Other [employer] Other 09-07-2023 08:45-0400Diastolic blood prbomrcc29 mm[Hg] Sylvester Ball Other [employer] Other 09-07-2023 08:45-0400Respiratory rate12 /minBenjamin Ball Other [employer] Other 09-07-2023 08:45-0400Systolic blood tuzbynkg907 mm[Hg] Sylvester Ball Other [employer] Other 03-16-2023 11:30-0400Body .94 cmBenjamin Ball Other [employer] Other 03-16-2023 11:30-0400Body mass index (BMI) [Ratio] 28.04 kg/g4Fxcotsdg Ball Other [employer] Other 03-16-2023 11:30-0400Body qewkpl89.31 kgBenjamin Ball Other [employer] Other 03-16-2023 11:30-0400Diastolic blood tfiadcbz58 mm[Hg] Sylvester Ball Other [employer] Other 03-16-2023 11:30-0400Respiratory rate12 /minBenhaseeb Jacob Other [facility] [employer] Other 03-16-2023 11:30-0400Systolic blood pxaaaazt737 mm[Hg] Sylvester Jacob Other [facility] [employer] Other 02-21-2023 14:40-0500Body ubgaev206.94 cmDale Moreau Other [place] [employer] Other 02-21-2023 14:40-0500Body mass index (BMI) [Ratio] 31.36 kg/m2Dalela Moreau Other [place] [employer] Other 02-21-2023 14:40-0500Body .3 kgDale Lizzeth Other [place] [employer] Other 02-08-2023 12:00-887864 1Benhaseeb Rosenthal Nidia Work Phone: 1(222) [phone]-[facility] Work Phone: Comment on above:[id number] 13:19-0500Body gsjyjc066.5 cmJacob Mercado MD Work Phone: [facility]01-17-2023 13:19-0500Body temperature 97.39 [degF]Jacob Mercado MD Work Phone: [facility]01-17-2023 13:19-0500Body qcetqb66.22 kgJacob Mercado MD Work Phone: [facility]01-17-2023 13:19-0500Diastolic blood gdtexmei98 mm[Hg]Jacob Mercado MD Work Phone: [facility]01-17-2023 13:19-0500Heart rate66 /min Jacob Mercado MD Work Phone: [facility]01-17-2023 13:19-0500Respiratory rate 18 /minJacob Mercado MD Work Phone: [facility]01-17-2023 13:19-2312DjP4% (BldA) [Mass fraction]97 %Jacob Mercado MD Work Phone: [facility]01-17-2023 13:19-0500Systolic blood mm[Hg]Jacob Mercado MD Work Phone: [facility]01-12-2023 14:20-0500Body irczyh690.94 [employer] Other [employer] Other 01-12-2023 14:20-0500Body mass index (BMI) [Ratio] 31.36 kg/h3Jwlspjf [employer] Other [employer] Other 01-12-2023 14:20-0500Body ccrdyf72.3 kgJessica [employer] Other [employer] Other 01-10-2023 11:27-0500Body vhsday933.94 cmBenjamin E Ball Work Phone: [phone]-Agiqp [place] [employer] DO Work Phone: 1(201) 275-932201-10-2023 11:27-0500Body mass index (BMI) [Ratio] 29.67 kg/b9Jiholevs E Ball Work Phone: [phone]-Bfxjr [place] [employer] DO Work Phone: 1(220) 754-485201-10-2023 11:27-0500Body surface area Derived from formula1.7 i0Rixcpybl E Ball Work Phone: mp272-5593QI-Igjyb [place] [employer] DO Work Phone: 1(289) 539-568701-10-2023 11:27-0500Body qevtgn00.22 kgBenjamin E Ball Work Phone: mp944-0915ZS-Ivsam [facility] 250 DO Work Phone: 1(359) 374-614601-10-2023 11:27-0500Diastolic blood mm[Hg] Sylvester E Ball Work Phone: [phone]-RijqgSteven [facility] 250 DO Work Phone: 1(266) 840-554401-10-2023 11:27-0500Heart rate72 /minBenjamin E Ball Work Phone: mp261-3900BY-Prfzk [place] [facility] 250 DO Work Phone: 1(571) 285-709301-10-2023 11:27-0500Systolic blood mm[Hg] Sylvester E Ball Work Phone: mp019-8178VQ-PhqipNorthfield City Hospital 250 DO Work Phone: 1(459) 959-879311-30-2022 07:54-0500Body tpdlfqacwrs58.1 [degF]DO Sylvester Ball Work Phone: 1(857)412-37[facility]11-30-2022 07:54-0500 Diastolic blood rtpsfqta50 mm[Hg]DO Sylvester Ball Work Phone: 1(251)614-53[facility]11-30-2022 07:54-0500 Heart rate75 /minDO Sylvester Ball Work Phone: 1(719)181-82[facility]11-30-2022 07:54-0500 Respiratory rate16 /minDO Sylvester Ball Work Phone: 1(858)134-90[facility]11-30-2022 07:54-0500 SaO2% (BldA) [Mass fraction]98 %DO Sylvester Ball Work Phone: 1(155)220-09[facility]11-30-2022 07:54-0500 Systolic blood rjiupbfr665 mm[Hg]DO Sylvester Ball Work Phone: 1(360)594-46[facility]11-30-2022 04:13-0500 Body wvnexz08.8 kgDO Sylvester Ball Work Phone: 1(570)996-02[facility]11-29-2022 00:09-0500 Inhaled oxygen hxzhlquxhyroe14 %DO Sylvester Ball Work Phone: 1(166)431-01[facility]11-28-2022 16:00-0500 Inhaled oxygen flow rate2 L/minDO Sylvester Ball Work Phone: [facility]11-28-2022 08:58-0500 Body hxiiyc867.21 cmDO Sylvester Ball Work Phone: [facility]11-28-2022 08:58-0500 Body mass index (BMI) [Ratio]29.6 kg/m2DO Sylvester Ball Work Phone: [facility]10-11-2022 08:39-0400 Body bgguin458.94 cmBenjamin E Ball Work Phone: 1(402) [phone]-QrkjrRidgeview Sibley Medical Centerk 600 DO Work Phone: 1(732)817-569-084056-51 08:39-0400Body mass index (BMI) [Ratio] 30.42 kg/t4Lkpijwaw E Ball Work Phone: 1(733) [phone]-LqwmrPhillips [facility] Institute 600 DO Work Phone: 1(435)532-435-494273-20 08:39-0400Body surface area Derived from formula1.72 x9Vbhpxweh E Ball Work Phone: 1(192) [phone]-QixjePhillips Eye Institute 600 DO Work Phone: 1(305)552-353-920455-11 08:39-0400Body bktbal32.03 kgBenjamin E Ball Work Phone: 1(383) [phone]-MkmqePhillips Eye Institute 600 DO Work Phone: 1(601)766-105-887819-02 08:39-0400Diastolic blood qcfjujvj73 mm[Hg] Sylvester E Ball Work Phone: 1(205) [phone]-FnqvvRidgeview Sibley Medical Centerk 600 DO Work Phone: 1(449)833-513-691552-01 08:39-0400Heart rate62 /minBenjamin E Ball Work Phone: 1(154) [phone]-YimuzRidgeview Sibley Medical Centerk 600 DO Work Phone: 1(131)[phone] 08:39-0400Systolic blood wdyysbba535 mm[Hg] Sylvester E Ball Work Phone: mp894-0994CY-YxhllCannon Falls Hospital And ClinicAlton 600 DO Work Phone: 1(197) 461-387209-20-2022 12:40-0400Body hwiler498.94 cmDale Moreau Other [employer] Other 09-20-2022 12:40-0400Body mass index (BMI) [Ratio] 31.36 kg/m2Dale Moreau Other [employer] Other 09-20-2022 12:40-0400Body ufwohd83.3 kgDale Moreau Other [employer] Other 08-30-2022 10:00-0400Body .94 cmDale Moreau Other [employer] Other 08-30-2022 10:00-0400Body mass index (BMI) [Ratio] 31.36 kg/m2Dale Moreau Other [employer] Other 08-30-2022 10:00-0400Body .3 kgDale Moreau Other [employer] Other 07-05-2022 12:00-0400Body iusppk996.94 cmDale Moreau Other [employer] Other 07-05-2022 12:00-0400Body mass index (BMI) [Ratio] 31.17 kg/m2Dale Moreau Other [employer] Other 07-05-2022 12:00-0400Body .84 kgDale Moreau Other [employer] Other 06-09-2022 11:59-0400Body kwlnjhnvhcu12.2 [degF]DO Sylvester Jacob Work Phone: 1(306)651-96[facility]06-09-2022 11:59-0400 Diastolic blood nhhxmshe90 mm[Hg]DO Sylvester Ball Work Phone: 1(014)[address]06-09-2022 11:59-0400 Heart rate73 /minDO Sylvester [facility] Work Phone: 1(153)[address]06-09-2022 11:59-0400 Respiratory rate13 /minDO Sylvester [facility] Work Phone: 1(279)290-[address] [place], [place] 1674506-09-2022 11:59-0400 SaO2% (BldA) [Mass fraction]99 %DO Sylvester [facility] Work Phone: 1(913)[address]06-09-2022 11:59-0400 Systolic blood yjbfvrnm862 mm[Hg]DO Sylvester [facility] Work Phone: 1(733)[address] [place], [place] 3028506-09-2022 04:55-0400 Body snzxlu03 kgDO Sylvester [facility] Work Phone: 1(390)[address]06-08-2022 14:14-0400 Inhaled oxygen flow rate8 L/Gudelia Phan [facility] Work Phone: 1(307)[address] [place], [place] 3028506-08-2022 12:02-0400 Body mass index (BMI) [Ratio]30.8 kg/m2DO Sylvester [facility] Work Phone: 1(055)[address]06-08-2022 11:59-0400 Body .02 cmDO Sylvester [facility] Work Phone: 1(627)646-[address] [place], [place] 1674504-07-2022 16:20-0400 Body jjyqzp367.94 cmDalela Moreau Other [employer] Other 04-07-2022 16:20-0400Body mass index (BMI) [Ratio] 31.17 kg/m2Dale Lizzeth Other [employer] Other 04-07-2022 16:20-0400Body .84 kgDale Moreau Other [employer] Other Encounters Encounter DateEncounter TypeCare ProviderFacilityStart: 02-19-2025 End: 77-62-7542Qzalrchibn hospital visit by physicianEna Ames Echo/Vasc Room 2[facility] HealthComment on above:Mitral valve insufficiency, unspecified etiology; Left ventricular systolic dysfunctionStart: 02-19-2025 End: 08-85-5186htyvoyykctZQZFCF [facility] Systemtart: 02-12-2025 End: 38-67-6525Mmkezf outpatient visit 15 minutesDick PEREZ Work Phone: [facility] OrthopaedicsComment on above:Acute pain of right shoulder (Primary Dx); Rotator cuff arthropathy of right shoulder; Subacromial impingement of right shoulderStart: 02-12-2025 End: 51-47-4842esbtzymmyyZOBMYMT J MEYERNot AvailableStart: 02-12-2025 End: 09-46-7945Yixkwo Yves PEREZ Work Phone: [facility] OrthopaedicsStart: 02-12-2025 End: 57-75-8620Tafjsxalec PEREZ Work Phone: [facility] OrthopaedicsStart: 01-30-2025 End: 68-61-0859Mtbypa outpatient visit 25 minutesBryce Hendrickson MD Work Phone: [facility] on above:Mitral valve insufficiency, unspecified etiology (Primary Dx); Left ventricular systolic dysfunction; Essential hypertension; LBBB (left bundle branch block); BMI 28.0-28.9,adult; Never smoked tobacco; Stage 3a chronic kidney disease (Multi)Start: 01-30-2025 End: 11-20-2947xfnyrjmxhsYVIZYY [facility] AmbulatoryStart: 01-15-2025 End: 79-05-3503urdbihekkeXizhdxyy Ball DO Work Phone: [facility] Work Phone: Start: 01-15-2025 End: 67-74-7347Evzvdux encounter procedureBereal Jacob DO-[facility] Work Phone: Start: 01-11-2025 End: 43-17-5217Iiqgqfl encounter procedureDanyelle Mathews MD-[facility] Work Phone: Start: 01-11-2025 End: 66-67-1584xhnoqxejujMxqcejcz Ball DO Work Phone: [facility] Work Phone: Start: 64-18-6157Eoe-patient / Non-visitCatherine Wm JOSHI-[facility] Work Phone: Start: 56-51-0575Ovp-patient / Non-visitBenhaseeb Jacob DO-[facility] Work Phone: Start: 58-02-0739Deg-patient / Non-visitBenhaseeb Jacob DO-[facility] Work Phone: Start: 99-47-4100Ouf-patient / Non-visitChristian Heriberto Palacios MD-[facility] Work Phone: Start: 60-52-1741Vem-patient / Non-visitChristian Heriberto Palacios MD-[facility] Work Phone: Start: 02-77-4558Acd-patient / Non-visitMarley Mendieta APRN-[facility] Work Phone: Start: 11-14-2024 End: 65-90-3708Cxrkysbksm and management of inpatientSylvester Jacob [facility]art: 11-69-8025Wob-patient / Non-visitGeorge Jayce Juan MD-[facility] Work Phone: Start: 11-02-2024 End: 50-64-3581Riylosdkni and management of inpatientArpantonio Soas MD-[address] [place] [address] Critical Care Work Phone: Start: 70-98-9185Clr-patient / Non-visitSin Martinez MD-[facility] Work Phone: Start: 10-23-2024 End: 51-12-6123Badsqu Julianna Linda MD Work Phone: [facility] BM NEUROLOGYStart: 10-23-2024 End: 21-00-3297Mtjrjg Julianna Linda MD Work Phone: [facility] BM NEUROLOGYStart: 10-23-2024 End: 27-84-5785Xnxfhc outpatient new 45 minutesBran Linda MD Work Phone: [facility] SWS NEURComment on above:Bilateral carpal tunnel syndrome (Primary Dx); Idiopathic progressive neuropathyStart: 10-23-2024 End: 80-32-0382tfopyusqiaQBAHXHY W BAUERNot AvailableStart: 66-65-9312Rqa- patient / Non-visitSylvester Jacob DO-[facility] Work Phone: Start: 09-29-2024 End: 76-47-3257klgfiqyqdyQpdnysqwzFort [facility] Work Phone: Start: 09-29-2024 End: 47-37-2083Hmhtklg encounter procedureCarolinaeast [facility] Work Phone: Start: 09-28-2024 End: 37-84-8213Itovqj flowsheetSteven A Rusher DPM Work Phone: [facility] PODIATRYStart: 09-28-2024 End: 93-14-1286Kjdaly flowsheetSteven A Rusher DPM Work Phone: [facility] PODIATRYStart: 09-28-2024 End: 89-85-4455tnnstouvtqZPBJUH A RUSHERNot AvailableStart: 09-28-2024 End: 66-05-0991Kjdbnh outpatient visit 25 minutesSteven A Rusher DPM Work Phone: noms PODIATRYComment on above:Osteoarthritis of midtarsal joint of left foot (Primary Dx); Capsulitis of left foot; Pain in joint of left foot; Pain and swelling of toe of left foot; Difficulty walkingStart: 09-28-2024 End: 00-44-4311kslrprgzvmMDVRAI A RUSHERNot AvailableStart: 09-06-2024 End: 31-08-1445Zxlnzwi encounter procedureSteven A Rusher DPM Work Phone: noms PODIATRYComment on above:Dermatophytosis of nail (Primary Dx); Dystrophic nail; Pain around toenail, right foot; Pain around toenail, left footStart: 09-06-2024 End: 82-03-3384quufyadrbwNBSCNJ A RUSHERNot AvailableStart: 09-06-2024 End: 13-85-6811Snhueh flowsheetSteven A Rusher DPM Work Phone: [facility] PODIATRYStart: 09-06-2024 End: 57-78-3103Xrafer flowsheetSteven A Rusher DPM Work Phone: [facility]oms PODIATRYStart: 19-88-0976Ivj-patient / Non-visitCarolinaeast Medical Center [facility] Work Phone: Start: 09-04-2024 End: 91-31-6461nveuelafgjOspciwyg Ball DO Work Phone: [facility] Work Phone: Start: 09-04-2024 End: 00-23-0504Ofmiklr encounter procedureSylvester Jacob DO Work Phone: [facility] Work Phone: Start: 08-21-2024 End: 43-70-4602Wcgaiak encounter procedureJacob Mercado MD Work Phone: Hematology/OncologyStart: 08-21-2024 End: 18-31-7558iyqxbbkshxKhjke R Murphy MD Work Phone: Hematology/OncologyComment on above:Malignant neoplasm of upper-outer quadrant of left breast in female, estrogen receptor negative (HCC) (Primary Dx)Start: 08-07-2024 End: 63-60-3475XrkiutTamhu R Murphy MD Work Phone: Hematology/OncologyComment on above:Refill Request Start: 07-24-2024 End: 19-16-9604nkwvituohoSsjwpots Nidia DO Work Phone: [facility] Work Phone: Start: 07-24-2024 End: 57-56-9535Rzaisyu encounter procedureSylvester Nidia DO Work Phone: [facility] Work Phone: Start: 07-03-2024 End: 70-40-3143Amcrwyfcv encounterHianna Cope MD Work Phone: NOSV CI ENTComment on above:cancel fu appt for ct scan not doneStart: 07-03-2024 End: 76-19-7132iwrtrpatgiZvwchzHeena William PA-C Work Phone: [facility] Work Phone: Start: 07-03-2024 End: 02-85-3621Ywwottw encounter procedureRomel William PA-C Work Phone: [facility] Work Phone: Start: 06-29-2024 End: 86-92-4364njmrpxmofmJikjhn J Myers PA-C Work Phone: [facility] Work Phone: Start: 06-29-2024 End: 65-55-7990Epcvkmg encounter procedureRomel William PA-C Work Phone: [facility] Work Phone: Start: 06-29-2024 End: 34-73-3480Eazbnbi encounter procedureArthur William PA-C Work Phone: [facility] Start: 06-29-2024 End: 41-34-6067bglbbxzwisZhzcce Brian William PA-C Work Phone: [facility] Work Phone: Start: 97-21-8043Kea-patient / Non-visitArthur William PA-C Work Phone: [facility] Work Phone: Start: 12-40-7266Mky-patient / Non-visitBenjamin West Fairlee DO Work Phone: [facility] Work Phone: Start: 19-96-4742Ayj-patient / Non-visitArthur William PA-C Work Phone: [facility] Work Phone: Start: 99-36-1159Zvf-patient / Non-visitArthur William PA-C Work Phone: [facility] Work Phone: Start: 21-28-0621Vlz-patient / Non-visitArthur William PA-C Work Phone: [facility] Work Phone: Start: 06-01-2024 End: 34-44-3595Otkohotzce and management of inpatientArthur William PA-C Work Phone: [facility] Work Phone: Start: 05-29-2024 End: 39-55-8517ifiskglitqEJTRNPMQ D ZAHLERNot AvailableStart: 05-29-2024 End: 60-72-5762Telsxg flowsheetDarbyholly Encarnacion DO Work Phone: noms OPHTStart: 05-29-2024 End: 26-70-1991Ifhowb flowsheetAllen Palacios Roscoe DO Work Phone: noms OPHTStart: 05-16-2024 End: 91-20-1659Cwkphi outpatient visit 15 minutesAnthony S Rusher DPM Work Phone: n[facility] PODIATRYComment on above:Dermatophytosis of nail (Primary Dx); Dystrophic nail; Pain in both feetStart: 05-16-2024 End: 57-96-9162pelvldyxijEWIYZBW S RUSHERNot AvailableStart: 05-16-2024 End: 81-06-3221Xpbgls flowsheetAnthony S Rusher DPM Work Phone: n[facility] PODIATRYStart: 05-16-2024 End: 92-18-9728Eqcarc flowsheetAnthony S Rusher DPM Work Phone: noms PODIATRYStart: 05-12-2024 End: 13-47-6853yilhtowaemPktdgy J Myers PA-C Work Phone: [facility] Work Phone: Start: 05-12-2024 End: 40-20-4613Xokndza encounter procedureRomel William PA-C Work Phone: [facility] Work Phone: Start: 05-04-2024 End: 75-86-2909Uaxmce outpatient visit 25 minutesBryce Hendrickson MD Work Phone: uh [facility] on above:Mitral valve insufficiency, unspecified etiology (Primary Dx); Left ventricular systolic dysfunction; Essential hypertension; LBBB (left bundle branch block); BMI 28.0-28.9,adult; Stage 3a chronic kidney disease (Multi)Start: 05-04-2024 End: 63-63-7728ddfdubxujvARQPYC [facility] AmbulatoryStart: 79-22-8187Kph-patient / Non-visitArthur William PA-C Work Phone: [facility] Work Phone: Start: 04-12-2024 End: 44-66-7883Klcpgpm encounter procedureArthur William PA-C Work Phone: [facility] Work Phone: Start: 15-96-2899Pjz-patient / Non-visitArthur William PA-C Work Phone: [facility] Work Phone: Start: 56-91-9190Vcz-patient / Non-visitArthur William PA-C Work Phone: [facility] Work Phone: Start: 84-48-8122Mwc-patient / Non-visitArthur William PA-C Work Phone: [facility] Work Phone: Start: 04-07-2024 End: 83-50-5638Imcfybjyom and management of inpatientArthur William PA-C Work Phone: [facility] [place] [facility] Work Phone: Start: 04-04-2024 End: 47-27-9161Osvmank encounter procedureArthur William PA-C Work Phone: [facility] Work Phone: Start: 56-66-1874Pvd-patient / Non-visitArthur William PA-C Work Phone: [facility] Work Phone: Start: 03-28-2024 End: 86-79-9288dmlucaptdmLSLPGG H TIMMISNot AvailableStart: 03-28-2024 End: 24-72-6675Ylyqlu outpatient visit 25 minutesHianna Cope MD Work Phone: [facility] CI ENTComment on above:Chronic frontal sinusitis (Primary Dx)Start: 03-24-2024 End: 37-42-7731Ogoxmqevm Result EncounterHianna Cope MD Work Phone: [facility] External Department UnsolicitedStart: 03-24-2024 End: 83-65-4895Biwhglply Result EncounterHianna Cope MD Work Phone: [facility] External Department UnsolicitedStart: 03-08-2024 End: 13-23-0603Hnlaju flowsheetChuck Cope MD Work Phone: [facility] CI ENTStart: 03-08-2024 End: 73-26-3423Ogfsvj flowsRyder Cope MD Work Phone: [facility] CI ENTStart: 03-08-2024 End: 46-56-6406Jqlxws outpatient visit 25 minutesHianna Cope MD Work Phone: [facility] CI ENTComment on above:Chronic sinusitis, unspecified location (Primary Dx)Start: 03-08-2024 End: 96-39-8864ymlzeorqwuBMSNGT H TIMMISNot AvailableStart: 41-13-3507Lie- patient / Non-visitDO Sylvester Jacob Work Phone: [facility] Work Phone: Start: 03-01-2024 End: 28-39-4147vwpglkbbncVT Sylvester [facility] Work Phone: [facility] Work Phone: Start: 03-01-2024 End: 87-21-2134Nqifnvi encounter procedureDO Sylvester Jacob Work Phone: [facility] Work Phone: Start: 02-08-2024 End: 31-03-3633Bspvgua encounter procedureDO Sylvester Jacob Work Phone: [facility] Work Phone: start: 02-08-2024 End: 37-43-3677cbrywujypsNZ Sylvester Jacob Work Phone: [facility] Work Phone: Start: 01-18-2024 End: 78-53-4754Bppwdvehml hospital visit by physicianEna Ames Echo/Vasc Room 2Cross[facility]al HealthComment on above:Mitral valve insufficiency, unspecified etiologyStart: 01-06-2024 End: 38-58-5300Ykazierwe encounterReenoc Mart RN Work Phone: Hematology/OncologyComment on above:Radiology MammogramStart: 01-05-2024 End: 75-87-3674rfetefziqbTJ Sylvester Jacob Work Phone: [facility] Work Phone: Start: 01-05-2024 End: 45-74-0232Jzribcw encounter procedureDO Sylvester Jacob Work Phone: [facility] Work Phone: Start: 57-31-4336Zkl-patient / Non-visitDO Sylvester Jacob Work Phone: [facility] Work Phone: Start: 12-21-2023 End: 31-83-1155Kzgfmxtej to same day surgery centerDO Sylvester Jacob Work Phone: [facility] Work Phone: Start: 12-21-2023 End: 83-07-6164sutxiwmeolFK Sylvester Jacob Work Phone: [facility] Work Phone: Start: 12-13-2023 End: 38-91-1468xbwlfdguehYR Sylvester Jacob Work Phone: [facility] Work Phone: Start: 12-13-2023 End: 03-29-1674Dxdgfxx encounter procedureDO Sylvester Jacob Work Phone: [facility] Work Phone: Start: 11-24-2023 End: 98-83-1421pucmqufjhnHM Sylvester Jacob Work Phone: [facility] Work Phone: Start: 11-24-2023 End: 23-31-6027Uwfeclb encounter procedureDO Sylvester Jacob Work Phone: [facility] Work Phone: Start: 11-01-2023 End: 03-33-4765voydyqgvelIM Sylvester Jacob Work Phone: [facility] Work Phone: Start: 11-01-2023 End: 92-91-6011Nzepskd encounter procedureDO Sylvester Jacob Work Phone: [facility] Work Phone: Start: 10-19-2023 End: 82-09-0621brklwxfqnrDC Sylvester Jacob Work Phone: [facility] Work Phone: Start: 10-19-2023 End: 86-30-9208Uicgmnp encounter procedureDO Sylvester Jacob Work Phone: [facility] Work Phone: start: 09-22-2023 End: 70-46-2526dlajtiddfqDW Sylvester Jacob Work Phone: [facility] Work Phone: Start: 09-22-2023 End: 02-19-1721Vdgjcca encounter procedureDO Sylvester Jacob Work Phone: [facility] Work Phone: Start: 80-90-5528Zni-patient / Non-visitDO Sylvester Jacob Work Phone: [facility] Work Phone: Start: 09-14-2023 End: 49-24-9635Seewdrc encounter procedureDO Sylvester Jacob Work Phone: [facility] Work Phone: Start: 18-97-5549Vcb-patient / Non-visitDO Sylvester Jacob Work Phone: [facility] Work Phone: Start: 09-07-2023 End: 38-28-5734Obnfvkflt to same day surgery centerDO Sylvester Jacob Work Phone: [facility] Work Phone: Start: 09-07-2023 End: 03-26-1421czoxfkkgwtKY Sylvester Jacob Work Phone: [facility] Work Phone: Start: 08-11-2023 End: 64-98-3174ixnebmcufaQXW [facility] Work Phone: Start: 08-11-2023 End: 53-50-5563Haqajli encounter procedure[facility] Work Phone: Start: 52-47-6588Uqp-patient / Non-visitFirlittle ferrys [facility] Work Phone: Start: 07-20-2023 End: 64-12-9430qyxdndabalFBL [facility] Work Phone: Start: 07-20-2023 End: 90-20-5674Hwacpxl encounter procedureFirsilvinas Physician Group-[facility] Work Phone: start: 07-15-2023 End: 70-47-1530Ocilgj outpatient visit 25 minutesBryce Hendrickson MD Work Phone: [facility] CenterComment on above:Mitral valve insufficiency, unspecified etiology; Essential hypertension; Left ventricular systolic dysfunction; BMI 29.0-29.9,adult; Never smoked tobaccoStart: 44-99-1432Tgh-patient / Non-visitCarol[facility] Physician [facility] Work Phone: Start: 06-22-2023 End: 47-22-6938cybnjturpeAswkz R Murphy MD Work Phone: Hematology/OncologyComment on above:Malignant neoplasm of upper-outer quadrant of left breast in female, estrogen receptor negative (HCC) (HCC) (Primary Dx); 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)Start: 06-22-2023 End: 23-24-8863Snahrmf encounter procedureJacob Mercado MD Work Phone: SANDUSKYStart: 35-53-8938Ufa-patient / Non-visit [facility]ician [facility] Work Phone: Start: 06-21-2023 End: 75-69-8648wbmetuiscrSJ Benjamin Ball Work Phone: [facility] Work Phone: Start: 06-21-2023 End: 27-91-0859Ttjmjdv encounter procedureDO Sylvester Jacob Work Phone: [facility] Physician [facility] Work Phone: start: 06-08-2023 End: 10-72-5709ugqelutoxvUurrmfxs Ball Other [facility] [employer] Other Start: 72-52-3133Talxtqkde encounterBereal Fischer [facility] ClinicStart: 05-26-2023 End: 81-25-4636emksbrwhtxNuoqerg Springer Other [employer] Other start: 75-04-6301Dvxhzd follow up visit related to original pxVivi BiggsMcKenzie Regional Hospital NeurosurgeryStart: 05-26-2023 End: 37-12-8788Xzjlwzs encounter procedureDO Sylvester Jacob Work Phone: [facility]-X[facility] Work Phone: Start: 05-26-2023 End: 86-27-9938Qbkgvfo encounter procedureDO Sylvester Jacob Work Phone: [facility]-Start: 05-07-2023 End: 89-80-3932jxhbobhrtvSmryzdba Ball Other [employer] Other Start: 90-23-4432Rpwgql outpatient visit 15 minutes Sylvester StringerG [facility] ClinicStart: 20-19-4288Whurifi encounter procedure DO Sylvester Jacob Work Phone: [facility]-Start: 04-29-2023 End: 49-32-7487ewshpwnrczWswzyveo Ball Other [facility] [employer] Other Start: 53-41-8027Xmcbhc outpatient visit 25 minutes Sylvestre StringerG [facility] ClinicStart: 60-35-0175Vgpxtfcwf encounterBenjakaroline StringerG [facility] ClinicStart: 04-29-2023 End: 59-10-3144Luwvaxc encounter procedureDO Sylvester Jacob Work Phone: [facility] Work Phone: Start: 04-27-2023 End: 26-20-5974qglsvenamnSqwv Moreau Other [facility] [employer] Other start: 15-54-7750Lqmera follow up visit related to original pxDale [facility] NeurosurgeryStart: 04-27-2023 End: 34-51-9766Wjkxhfp encounter procedureDO Sylvester Jacob Work Phone: [facility] Work Phone: start: 04-23-2023 End: 51-19-0780tgwupxpsdoHcfzsrql Ball Other [employer] Other Start: 30-76-5409Zhqaradni encounterBenjamin SiomaraG [facility] ClinicStart: 33-27-2983cvkvznhcqyFAPCMTP PROVIDER [facility]Start: 04-15-2023 End: 07-39-1315Cfifyblens and management of inpatientDO Sylvester Jacob Work Phone: [facility] Work Phone: Start: 04-13-2023 End: 84-96-2387Qrrxiolbg to same day surgery centerDO Sylvester Jacob Work Phone: [facility]Start: 04-09-2023 End: 50-84-3428Odtchldwn to same day surgery centerDO Sylvester Jacob Work Phone: [facility]Start: 04-09-2023 End: 32-23-1646lwtdpbkdztBR Sylvester Jacob Work Phone: [facility] Work Phone: Start: 03-26-2023 End: 08-16-2988Eahqhvn encounter procedureDO Sylvester Jacob Work Phone: [facility]-Pre-Surgical Testing Work Phone: Start: 03-23-2023 End: 81-16-9338intnhqtmybTecabjnh Ball Other [employer] Other Start: 64-25-7320Vfnnuvwmx encounterBenjamin BallJUAN CARLOSG [facility] ClinicStart: 03-18-2023 End: 16-68-3768cvlqehcaudTcumyx Braun Other [employer] Other Start: 59-06-7845Pbmlcgdnr encounterMarcia BraunFPG [facility] ClinicStart: 03-18-2023 End: 74-21-2623Qxbklv outpatient visit 25 minutesBryce Hendrickson MD Work Phone: [facility] HomeComment on above:Mitral valve insufficiency, unspecified etiology (Primary Dx); Essential hypertension; Overweight with body mass index (BMI) of 29 to 29.9 in adult; Edema, unspecified type; Left ventricular systolic dysfunctionStart: 61-65-7632Ekynsbqet for gynecological examination (general) (routine) without abnormal findingsMarmartín Mariel [facility] ClinicStart: 95-22-3771Trdsbv outpatient visit 25 minutes Radha [facility] ClinicStart: 55-53-6162Qedwigjjd encounterDale LizzethMcKenzie Regional Hospital NeurosurgeryStart: 03-10-2023 End: 52-48-0623ibnsdlodiiQEEagle Jacob Work Phone: [employer] Other start: 03-10-2023 End: 66-21-9181Bwwwhyhd ReferredDO Sylvester Jacob Work Phone: [facility] [place] Work Phone: Start: 03-05-2023 End: 01-88-2621alzguhdqetJqvurxme Ball Other [employer] Other Start: 49-52-4844Fwelzxevt encounterBenhaseeb [facility] ClinicStart: 03-04-2023 End: 29-43-7151eihnjlfqmcFgvwgrkz Ball Other [employer] Other Start: 76-61-8786Sfzhjbrko encounterBenhaseeb [facility] Medical ClinicStart: 03-02-2023 End: 83-34-4674Gcclqt outpatient visit 25 minutesBryce Hendrickson MD Work Phone: [facility] HospitalComment on above:Mitral valve insufficiency, unspecified etiology; Essential hypertension; Edema, unspecified type; LBBB (left bundle branch block)Start: 03-01-2023 End: 25-25-9964owclixsbqzDzlugwiq Ball Other [employer] Other Start: 90-12-7714Vbjsgjmtv encounterBenhaseeb StringerG [facility] ClinicStart: 02-25-2023 End: 30-35-5941natowvexkbReqe Moreau Other nort [employer] Other start: 02-46-2516Xrjvlu outpatient visit 40 minutes Devin MoreauMcKenzie Regional Hospital NeurosurgeryStart: 02-22-2023 End: 29-15-4673tegbogksjoPocvqfqy Ball Other [employer] Other Start: 14-59-1924Srhkybf evaluation of patient and reportBereal StringerG [facility] ClinicStart: 26-59-4762Ozvnjrwkh encounter Sylvester SiomaraG [facility] ClinicStart: 02-15-2023 End: 88-80-3353qpgbvaeufxIF Sylvester Jacob Work Phone: [facility] Work Phone: Start: 02-15-2023 End: 06-23-3302Ducbmmu encounter procedureDO Sylvester Jacob Work Phone: [facility]-MRI [facility] [place] Work Phone: Start: 02-09-2023 End: 20-31-1155ttznhgcoxbRihvegoz Ball Other [facility] [employer] Other Start: 45-94-6493Xlcflwgqq encounterBenhaseeb StringerG [facility] ClinicStart: 02-01-2023 End: 56-86-2486shgkldfvrvBpro Moreau Other [employer] Other start: 43-22-1006Wtvuwdaye encounterDale Mariel [facility] ClinicStart: 01-28-2023 End: 49-16-3397qvngjytibzEO Sylvester Jacob Work Phone: [facility] Work Phone: Start: 01-28-2023 End: 92-56-3106Fhxaiec encounter procedureDO Sylvester Jacob Work Phone: [facility] Work Phone: Start: 96-38-9584leurfhvqzlIv. Sylvester Jacob Facility:[id number]: 01-21-2023 End: 23-29-5221tccjqtumqvWjtn Moreau Other [employer] Other start: 95-45-9208Hgiuix outpatient visit 15 minutes Devin MoreauMcKenzie Regional Hospital NeurosurgeryStart: 01-07-2023 End: 45-28-9175lnaawnhihrMpybukzn Ball Other [employer] Other Start: 91-37-3208Ukcnevp encounter procedureBenjamin BallFPG [facility] ClinicStart: 01-05-2023 End: 17-21-3165zufcxwcsokErzffoym Ball Other [employer] Other Start: 81-49-2083Twvfnojva encounterBenjamin BallFPG [facility] ClinicStart: 10-21-2022 End: 40-56-7162xhpmofiyvfHuxyqvmy Ball Other [employer] Other Start: 37-30-4441Ceejisuaw encounterBenjamin BallFPG [facility] ClinicStart: 09-03-2022 End: 64-09-9016upprogjodvCK SYLVESTER BALLFacility:H7Lnrcd: 08-18-2022 End: 28-55-5450xhruhqktmuTL SYLVESTER BALLFacility:T8Jkbsy: 08-14-2022 End: 67-02-6596yziaypwzjtTkziddsr Ball Other [employer] Other Start: 83-98-4175Nqneusypu encounterBenhaseeb [facility] Medical ClinicStart: 08-04-2022 End: 32-87-0991udbwxppwdqGzukzzzm Ball Other [employer] Other Start: 33-12-3771Zobqwxilm encounterBenhaseeb [facility] ClinicStart: 07-16-2022 End: 31-68-2997jawdezxiioCeiuuncy Ball Other [facility] [employer] Other Start: 70-61-6379Xbqsou outpatient visit 15 minutes Sylvester [facility] ClinicStart: 06-23-2022 End: 69-74-7035ivmwpsqipwQwsc Braun Other [employer] Other start: 39-59-7525Uwncch follow up visit related to original pxDalela BraunMcKenzie Regional Hospital NeurosurgeryStart: 01-95-3773Mhrcu Update Sylvester Jacob Work Phone: [phone]-Mjduc [facility] DO Work Phone: Start: 55-21-8987Vkgmjfz encounter procedureBereal Jacob Work Phone: [phone]-Twogc [facility] Work Phone: Start: 92-05-3212zcncjkjgorTqRadha Phan Sampson Jacob Facility:[id number]: 05-22-2022 End: 38-33-4312yjdycverhrJwmjciqi Ball Other [address] [employer] Other Start: 04-86-9728Lvxifli evaluation of patient and reportSylvester [facility] Medical ClinicStart: 05-19-2022 End: 29-35-8442yetulwfkunChrza R Murphy MD Work Phone: Hematology/OncologyComment on above:Malignant neoplasm of upper-outer quadrant of left breast in female, estrogen receptor negative (HCC) (Primary Dx)Start: 05-19-2022 End: 47-96-3123Hvqbfyw encounter procedureaJcob Mercado MD Work Phone: SANDUSKYStart: 05-14-2022 End: 35-45-7005bmvgwdybstPswflhk Springer Other [facility] [employer] Other start: 01-72-3666Sqemgd follow up visit related to original pxJessica [place] [place] NeurosurgeryStart: 74-87-4912Afpfmb outpatient visit 25 minutesBenhaseeb Rosenthal Ball Work Phone: [phone]-AtafgEssentia Health-[place] 250 DO Work Phone: Start: 05-12-2022 End: 78-62-4243phsiqlufguNfyeddzc Edward BallFacility:[id number]: 05-12-2022 End: 74-29-5812Nnzedkj encounter procedureDO Sylvester Jacob Work Phone: [facility] Work Phone: Start: 05-11-2022 End: 37-48-5536ataxylwqgdHU BENJAMIN BALLFacility:O9Fpujk: 05-07-2022 End: 95-27-9827bkgoejjewlEkpzinxl Ball Other [facility] [employer] Other Start: 13-51-9588Kmrifezwp encounterBenhaseeb JacobBoston Sanatorium SanduskyStart: 04-49-4318UkgbxvZllne R Murphy MD Work Phone: Hematology/OncologyComment on above:Refill Request Start: 04-14-2022 End: 51-48-2416tvwenvgenyFqfa Braun Other [employer] Other start: 41-80-3408Ariepu follow up visit related to original pxDale [facility] NeurosurgeryStart: 04-11-2022 End: 60-69-2580ldjsurqlbxEM YOSHI SANTIAGOFacility:B6Tqamk: 03-30-2022 End: 79-60-3228Idyzlhuqw to same day surgery centerAvita Health System CtrStart: 03-30-2022 End: 28-86-9752zrdsdfkisaQS Sylvester Jacob Work Phone: [facility] [employer] Other start: 03-27-2022 End: 17-73-7313Dufcyuf encounter procedureDO Sylvester Jacob Work Phone: [facility] Vql-Bgh-Dwxhjzgi Testing Start: 03-16-2022(DME) DMEAvita Health System CtrStart: 03-16-2022 End: 22-80-2388eifjyilqesTI Sylvester Jacob Work Phone: [facility] Work Phone: Start: 03-16-2022 End: 87-73-0125Zegtsmz encounter procedureDO Sylvester Jacob Work Phone: [facility] Nlf-Bwd-Jyfbiuqw Testing Start: 11-92-3334Eizzsb outpatient visit 25 minutesBenaranzakaroline Rosenthal Ball Work Phone: [phone]-Hjlau [facility] 600 DO Work Phone: Start: 45-92-1934wzfsxrisdrNtbmaobi Sampson [facility] Facility:[id number]: 02-09-2022(Procedure) ShortThomas FelterErie [facility] Surgery CenterStart: 02-09-2022 End: 98-37-6818bijgshazsvIvwfbz Felter Other [employer] Other Start: 02-05-2022 End: 04-72-8528idekywbyqwDN EVELIN Collado WESTFacility:M5Sxtjw: 01-26-2022 End: 36-92-9670qupodbwceyHoikly Felter Other [employer] Other Start: 04-99-0444Pkpncaeup encounterThomas FelterFPG [facility] OrthopedicsStart: 01-20-2022 End: 80-42-4254ekxlcqlejkXguw Braun Other [employer] Other start: 22-91-9456Fyptrm outpatient visit 15 minutes Devin [facility] NeurosurgeryStart: 02-54-1677Hlryv health examination Sylvester Jacob Other [employer] Other Start: 01-09-2022 End: 06-14-5467hmepsxxbzzCI TAMY Karuna MCDANIELERFacility:M0Vywqy: 12-30-2021 End: 30-76-1091uefohbmedcYbiz Braun Other [employer] Other start: 17-31-5363Wrqwpg follow up visit related to original pxDale [facility] NeurosurgeryStart: 12-29-2021 End: 14-89-6466Chwtfvz encounter procedureDO Sylvester Jacob Work Phone: [facility]-XRay Main CampusStart: 11-04-2021 End: 12-38-4997oiovtwxybgYhcl Braun Other [employer] Other start: 80-21-9581Yiiewu follow up visit related to original pxDale [facility] NeurosurgeryStart: 10-08-2021 End: 41-35-0533Uteduolry to same day surgery centerDO Sylvester Jacob Work Phone: [facility] HospitalYouGotListings [facility] Main CampusStart: 10-08-2021 End: 41-96-7052bzxshrwdlbRkcp Braun Other [employer] Other start: 10-06-2021 End: 02-32-8940Clhbntd encounter procedureDO Sylvester [employer] Phone: [facility]-Pre-Surgical Testing Start: 09-24-2021 End: 68-12-4286Yvhzctx encounter procedureDO Sylvester Jacob Work Phone: [facility] Fgq-Vaf-Jvyrbajv Testing Start: 08-07-2021 End: 14-53-8780uytywlwuonZjzq Lizzeth Other [employer] Other start: 82-45-1254Agulqg outpatient visit 40 minutes Devin MoreauMcKenzie Regional Hospital NeurosurgeryStart: 07-08-2021 End: 51-59-3554Owfocye encounter procedureDO Sylvester Jacob Work Phone: [facility]-XRay Main CampusStart: 42-34-8645Ayn-procedure evaluation checkSylvester Jacob Other [employer] Other Start: 69-75-9854Fytriro encounterBRYCE HENDRICKSON Facility:[id number] Procedures DateProcedureProcedure DetailPerforming ClinicianStart: 23-94-5533Dqvl transthorc r-t 2d w/wo m-mode rec f-up/lmtNikolas Hendrickson MD Work Phone: Start: 00-46-0752Adytv shoulder complete minimum 2 viewsMattsolw Brian PEREZ Work Phone: Start: 79-10-0760Rgvbecuxleslie SosaComment on above:Order Comment: Transfuse now? Y Number of units to transfuse now? 1Result Comment: PERFORMED BY:[place] [address] [address] [place], [place] [phone] MEDICAL JACKELYN VÁZQUEZ M.D.Start: 35-11-5735Apmojyheleslie Turpin on above:Order Comment: Transfuse now? Y Number of units to transfuse now? 2Result Comment: PERFORMED BY:[place] [address] [address] [place] [phone] MEDICAL DIRECTORCARLOS VÁZQUEZ M.D.Start: 47-26-5687Moblwvdlt for occult blood in fecesBenjamin Ball DO Work Phone: Start: 64-92-5177Svkel chest X-rayBenjamin Ball DO Work Phone: Start: 07-67-1193XX of abdomen and pelvis without contrastBenjamin Ball DO Work Phone: Start: 63-21-4834MD of head without contrastBenjamin Ball DO Work Phone: Start: 50-64-9586Ksucr foot complete minimum 3 views Tamy Khan DPM Work Phone: Start: 52-88-0864Vbxfb radiography of pelvisArthur William PA-C Work Phone: Start: 65-88-6684I-ray of left knee, three viewsArthur William PA-C Work Phone: Start: 43-68-8678Txjtoiwkpidytnr of bilateral kidneys Romel William PA-C Work Phone: Start: 04-26-3210XH cervical spine without contrast Romel William PA-C Work Phone: Start: 96-78-3646PV of head without contrastArthur William PA-C Work Phone: Start: 33-19-7562Dafhy X-ray of bilateral tibia and bilateral fibulaArthur William PA-C Work Phone: Start: 22-07-9002Y-ray of left knee, two viewsArthur William PA-C Work Phone: Start: 22-16-1236Bplkfswftqvy ophthalmic imaging optic nerveAllen Encarnacion DO Work Phone: Start: 05-29-2024 End: 62-84-9286Ojqbr medical xm&eval comprhnsv estab pt 1/>Primary open angle glaucoma (POAG) of both eyes, mild stage (CMS/HCC)Allen Encarnacion DO Work Phone: comment on above:Primary open angle glaucoma (POAG) of both eyes, mild stage (CMS/HCC) (Primary Dx); PCO (posterior capsular opacification), bilateral; Keratoconjunctivitis sicca of both eyes not specified as Sjogren'sStart: 72-29-4331XC of head without contrastArthur [employer] Work Phone: Start: 83-65-0195Qivfe chest X-rayArthur [employer] Work Phone: Start: 53-69-9489Qmpqf sinuses paranasal compl minimum 3 viewsHilary Celia Cope MD Work Phone: Start: 04-72-6484D-ray of lumbar spine, two or three viewsDO [employer] Work Phone: Start: 45-66-6648Rvyoojoij of local anesthetic into sacroiliac jointDO [employer] Work Phone: Start: 57-45-1358W-ray of lumbar spine, two or three viewsDO [employer] Work Phone: Start: 58-45-2424Fffnatrfm of local anesthetic into sacroiliac jointDO [employer] Phone: Start: 81-08-7760G-ray of lumbar spine, two or three viewsStart: 09-85-0394K-ray of lumbar spine, two or three viewsDO [employer] Phone: start: 58-34-9249ZL Lumbar Laminectomy w/Fix Implants (Not Applicable)DO [employer] Work Phone: Start: 87-75-0061O-ray of lumbar spine, two or three viewsDO [employer] Phone: Start: 14-11-2716NXF of lumbar spine with contrastDO [employer] Phone: Start: 64-33-8678H-ray of lumbar spine, six views including bending viewsDO [employer] Phone: Start: 59-38-1716Bvfq energy X-ray absorptiometryDO [employer] Phone: Start: 12-77-5468W-ray of lumbar spine, four viewsDO [employer] Phone: Start: 95-00-7955QT Lumbar Laminectomy w/Fix Implants (Not Applicable)DO [employer] Work Phone: Start: 82-63-4515A-ray of lumbar spine, two or three viewsDO [employer] Work Phone: Start: 17-10-9707QBHV Antigen (LFIA)DO [employer] Work Phone: Start: 27-84-6202K-ray of lumbar spine, four viewsDO [employer] Phone: Start: 74-13-4085Qzfepqml of lumbar intervertebral discDO [employer] Phone: Start: 63-24-5503Q-ray of lumbar spine, single viewDO [employer] Phone: Start: 17-98-5095U-ray of lumbar spine, six views including bending viewsDO [employer] Phone: Start: 68-57-1262Zutgbesk screenComment on above: Performed By: #### [id number] ####[address] [phone]: 61-89-1314Dcmzyowln for malignant neoplasm of colon [employer] Other Start: 49-43-8163Dillensfkevs cardiovascular examinationBenObeo Other AppendectomyBenjamin E Ball Work Phone: Arthroplasty of kneeBenjamin E [facility] Work Phone: Cataract surgeryBenjamin E [facility] Work Phone: CholecystectomyBen[facility] E [facility] Work Phone: ColonoscopyBenjamin E [facility] Work Phone: Depression screeningBenjaTHE [employer] Other HysterectomyBenjamin E Ball Work Phone: Procedure on backBenjamin E Ball Work Phone: Comment on above:10/22 03/24;Repair of musculotendinous cuff of shoulderBenjamin E Ball Work Phone: Screening for malignant neoplasm of breastBenhaseeb Ball Other Plan of Treatment DateCare ActivityDetailAuthorStart: 63-44-6941Xjvacpoc ScreeningDiabetes ScreeningSycamore Medical Centertart: 27-58-9708Ninjiycc ScreeningDiabetes Screening [facility]rt: 44-24-0262QgqikpjbfsqfkcdwUkafltqjnzkhxmSmpzdfgfps [facility] ClevelandStart: 95-23-2577QawbkappzeuwmauoLjyshwwwykggagYeeyqdmdwi [facility] ClevelandStart: 09-14-2025 End: 94-30-2445Ccsrqkt encounter zdyrddhbf62/15/2026 10:20 AM EDT Office Visit [place] [address] [facility] [address] [place] [address] Bryce Hendrickson MD [address] [facility] [address] [place] [address] [facility]: 87-18-2917SQ Controlled (<130/80)BP Controlled (<130/80)[facility]rt: 12-84-4781Gbxayqnh blood countHemoglobin/HematocritEast Liverpool City Hospitalrt: 33-77-5623Fcwyoopiax measurementSerum CreatinineSycamore Medical Centertart: 34-86-3552NFBJKPZF SCREENDIABETES SCREENEast Liverpool City Hospitalrt: 03-19-2025 End: 62-93-4798Aucbskb encounter zlojgivbn77/17/2025 3:15 PM EST Procedure Visit [facility] [address] [place] [phone] Tamy Khan DPM [address] [place] [address] [facility]iatryStart: 03-05-2025 End: 01-22-0769Cxgvgtw encounter ncxhmrjyz02/03/2025 2:15 PM EST Office Visit [facility] [address] [place] [address] Allen Encarnacion DO [address] [place] [address] [facility]: 02-16-2025 End: 58-18-4039Bnxwyvw encounter pdzldqnvo74/17/2025 10:45 AM EDT Appointment [facility] [address] [facility] [address] [place] [address] [facility]Start: 02-12-2025 End: 32-87-2420Rrjsbiy encounter kujyysasc17/13/2025 2:45 PM EDT [facility] [address] [place], [place] Dick Levin, PA [address] [place] [address] Acute pain of right shoulder (Primary Dx) NOMSelena [place] OrthopaedicsComment on above:Acute pain of right shoulder (Primary Dx)Start: 01-30-2025 End: 00-03-2185CG Heart TransthoracicTransthoracic Echo Limited Echocardiography Routine Mitral valve insufficiency, unspecified etiology Left ventricular systolic dysfunction Expected: 01/30/2025 (Approximate), Expires: 01/30/2027[facility] Service Area Work Phone: Comment on above:Expected: 01/30/2025 (Approximate), Expires: 01/30/2027Start: 74-98-0937Theduafzw for osteoporosisBone Density Scan [facility]: 22-44-8429DewolvjpdMemorial Health System Marietta Memorial Hospitaltart: 40-25-8475DWZFI-19 Vaccine ( season)COVID-19 Vaccine ( season)[facility]art: 12-19-2024 End: 29-17-3374Xfbsbxn encounter hsrrdpofb21/19/2025 9:45 AM EDT Procedure Visit [facility] [address] [place] [address] Tamy Khan, DPM [address] [place] [address] [facility]S PODIATRYStart: 12-14-2024 End: 73-79-2368Fwinuuo encounter /14/2025 3:15 PM EDT Procedure Visit [facility] [address] [place] [phone] Tamy Khan, ARIAS [address] [place] [address] N[facility]S PODIATRYStart: 62-88-6284SST High Risk: (Elderly (60+) or Population) (1 - 1-dose 75+ series)RSV High Risk: (Elderly (60+) or Population) (1 - 1-dose 75+ series)[facility] HospitalStart: 19-12-5200FSE Vaccine (1 - 1-dose 75+ series)RSV Vaccine (1 - 1-dose 75+ series) [facility]: 59-14-8461OsjkxutjiMemorial Health System Marietta Memorial Hospitaltart: 11-28-2024 End: 59-85-2772Yjlrrbo encounter ltugickpo73/29/2025 10:45 AM EDT Office Visit [facility] [address] [place] [address] Allen Encarnacion DO [address] [place] [address] N[facility]S [facility] OPHTStart: 66-39-2587Stctcrctrlwonj of prophylactic treatmentMemorial Health System Marietta Memorial Hospitaltart: 76-69-5687Turlftgs admissionMemorial Health System Marietta Memorial Hospitaltart: 31-78-3638Jkhavzdh to clinical allergistMemorial Health System Marietta Memorial Hospitaltart: 01-27-3276ZoqvibzveDayton Children'S Hospital CenterStart: 32-51-1560Kmatjvcn to rehabilitation physicianDayton Children'S Hospital CenterStart: 47-86-4897ZblxxyfztDayton Children'S Hospital CenterStart: 11-11-2024 End: 95-59-7314IyymsokgoDayton Children'S Hospital CenterStart: 56-20-9682Mafbbqzvc culture of sputumDayton Children'S Hospital CenterStart: 65-88-8401BwyafttboDayton Children'S Hospital CenterStart: 11-09-2024 End: 18-64-5409Hwkgnyh encounter cbydbncph80/10/2025 9:00 AM EDT Procedure Visit [facility] [address] [place] [address] HVIG SWS NEURStart: 19-45-5061SlqmwxtejDayton Children'S Hospital CenterStart: 11-08-2024 [facility] CenterStart: 91-22-8252Vfjbabeq to systems software manager [facility] CenterStart: 38-38-9099Sryahbgexufdh metabolic 1999 panel - Serum or [facility] CenterStart: 11-07-2024 [facility] CenterStart: 11-06-2024 End: 65-34-5907Uakudjh encounter duvwfxuyy63/07/2025 12:00 PM EDT Procedure Visit [facility] [address] [place] [address] N[facility]S SWS NEURStart: 85-76-6181Vjzzkqooeiass metabolic 1999 panel - Serum or PlasmaDayton Children'S Hospital CenterStart: 68-18-3272CxovmwabhDayton Children'S Hospital CenterStart: 77-30-3029Apvjpjbs to gastroenterologistDayton Children'S Hospital CenterStart: 43-21-1182Ftzjtvcjzjvex metabolic 1999 panel - Serum or PlasmaDayton Children'S Hospital CenterStart: 80-82-9233BpvbpjgcxDayton Children'S Hospital CenterStart: 29-47-0633Jirurhfmrjajk metabolic 1999 panel - Serum or [facility] CenterStart: 40-26-3789XciymadvhDayton Children'S Hospital CenterStart: 54-39-0194Ngjfnjgheuqpb metabolic 1999 panel - Serum or [facility] CenterStart: 11-03-2024 End: 34-42-4048RzpifkjbzMemorial Health System Marietta Memorial Hospitaltart: 17-13-1323BtiydgnnnMemorial Health System Marietta Memorial Hospitaltart: 71-51-0585Zmnwsoni to nephrologistMemorial Health System Mari[facility] Memorial Hospitaltart: 43-62-2741AqgyfdfryqmzOuoxlplhlMemorial Health System [facility] Memorial Hospitaltart: 49-47-8678Iguqohte admissionMemorial Health System Marietta Memorial Hospitaltart: 73-29-6467Qzqjnubgd culture of sputumMemorial Health System Marietta Memorial Hospitaltart: 33-89-7510Bsrgjlkh therapy procedureMemorial Health System Marietta Memorial Hospitaltart: 07-05-2659Woiloqtx to occupational therapistShelby Memorial Hospital Start: 11-02-2024 End: 15-90-0991HhssbmbbxMemorial Health System Marietta Memorial Hospitaltart: 90-33-9459Swfsgfbbplrt consultation with patientMemorial Health System Marietta Memorial Hospitaltart: 10-23-2024 End: 35-38-0455Imfsdaa encounter procedureNOMS SWS NEURComment on above:Arrived Start: 10-17-2024 End: 99-49-0801Fkrkesj encounter cbqchqthu93/17/2025 4:00 PM EDT Office Visit [facility] [address] [place] [address] Tamy Khan DPM [address] [place] [address] N[facility]S PODIATRYStart: 09-28-2024 End: 76-86-5206Mtjtpke encounter myuypaapy52/29/2025 10:15 AM EDT Office Visit [facility] [address] [place] [address] Tamy Khan DPM [address] [place] [address] ArrivedNOMS PODIATRYComment on above:ArrivedStart: 09-06-2024 End: 37-17-4926Bcktogq encounter yaijifozf64/07/2025 2:45 PM EDT Procedure Visit [facility] [address] [place] [address] Tamy Khan, DPM [address] [place] [address] ArrivedNOMS PODIATRYComment on above:ArrivedStart: 08-28-2024 End: 34-58-7121Cfesyzl encounter pvxxjyzil78/28/2025 10:15 AM EDT Procedure Visit [facility] [address] [place] [address] Marce Khan, SHAKILAM [address] [place], [place] [address] NOMS PODIATRYStart: 08-21-2024 End: 94-45-5506Vqycfh-up sykvrnrqh54/21/2025 11:20 AM EDT Visit (SP) Office Hematology/Oncology [address] [place] [address] Jacob Mercado MD [address] [place] [address] [place] [address] 1 year follow up lab and BRM(mammo 02/14/24)Hematology/Oncology Comment on above:1 year follow up lab and BRM(mammo 02/14/24)Start: 08-21-2024 End: 93-20-6937Xbvaaem encounter xaalzlcvu31/21/2025 11:00 AM EDT Office Visit [facility] [address] [place] [address] 1 year follow up lab and [facility]MNW[facility] LaboratoryComment on above:1 year follow up lab and BRMStart: 07-18-2024 End: 76-42-1501Vcnufnf encounter mpnqegkid69/18/2025 11:10 AM EDT Office Visit [facility] [address] [place] [address] Chuck Cope MD [address] [place] [address] NOMS CI ENTStart: 06-29-2024 End: 06-88-8922Jkxqnnn encounter kphbbdoid79/27/2025 11:00 AM EST Office Visit [facility] [address] [place] [address] Bran Linda MD [address] Rivas [address] [place] [address] NOMS SWS NEURStart: 67-62-2405Ivdrf radiography of pelvisXR pelvis 1-2VMemorial Health System Marietta Memorial Hospitaltart: 70-69-5459X-ray of left knee, three viewsXR knee LT 3V - NOT FOR ER USEMemorial Health System Marietta Memorial Hospitaltart: 44-49-2888BX Knee - left 3 ViewsMemorial Health System Marietta Memorial Hospitaltart: 02-48-3127QZ Pelvis 1 or 2 ViewsMemorial Health System Marietta Memorial Hospitaltart: 35-76-6974DD Controlled (<130/80)BP Controlled (<130/80) [facility]: 95-19-8440Txpjqdvt blood countHemoglobin/Hematocrit [facility]ertart: 40-80-7532Okfqcoonel measurementSerum CreatinineSycamore Medical Centertart: 06-20-2024 End: 68-56-5994Deknnl-up kyorusvnu43/18/2025 1:45 PM EST Visit (SP) Office Hematology/Oncology [address] [place], [place] [phone] Jacob Mercado MD [address] [place] [address] 1 year follow up lab and BRMHematology/OncologyComment on above:1 year follow up lab and BRMStart: 06-20-2024 End: 51-09-6635Jscstty encounter ryzvpnwac04/18/2025 1:30 PM EST Office Visit [facility] [address] [facility] [place] [address] 1 year follow up lab and BRMNWelch Community Hospital LaboratoryComment on above:1 year follow up lab and BRMStart: 06-05-2024 [facility] Hospitaltart: 77-90-1863Dbscemjz to rehabilitation physicianMemorial Health System Marietta Memorial Hospitaltart: 06-04-2024 End: 04-90-7044Oxmqp metabolic 2000 panel - Serum or PlasmaBasic Metabolic Panel Lab Routine Essential hypertension Expected: 06/04/2024 (Approximate), Expires: 05/04/2025[facility] Service Area Work Phone: Comment on above:Expected: 06/04/2024 (Approximate), Expires: 05/04/2025Start: 11-66-1022Abjyrrzu to nephrologistMemorial Health System Marietta Memorial Hospitaltart: 84-87-6369Uigwzokx admissionMemorial Health System Marietta Memorial Hospitaltart: 86-92-6764AmfjcmwvmMemorial Health System Marietta Memorial Hospitaltart: 06-01-2024 [facility] Hospitaltart: 05-29-2024 End: 59-75-2553Hiuwiab encounter procedureNOMS NB OPHTComment on above:Arrived Start: 05-16-2024 End: 14-23-7431Mgjwsgh encounter xhpsldahm91/14/2025 2:30 PM EST Procedure Visit [facility] [address] [place] [address] Marce Khan, DPM [address] [place] [address] ArrivedNOMS PODIATRYComment on above:ArrivedStart: 02-00-2156Xlkkxie referralOur Lady Of Mercy Hospital Work Phone: Start: 05-09-2024 End: 00-53-2469Dugzkzy encounter pynxjwfoy18/07/2025 11:20 AM EST Office Visit [facility] [address] [facility] [address] [place] [address] Chuck Cope MD [address] [facility] [address] [place] [address] NOMS CI ENTStart: 55-17-1754Fctyiau Directive DiscussionAdvance Directive DiscussionClechildren's hospital of columbus ClinicStart: 55-35-7526CwnlxfdieMemorial Health System Marietta Memorial Hospitaltart: 48-69-9075TMZXTSJN SCREENDIABETES SCREENSycamore Medical Centertart: 92-86-3353Wvjzvrge admissionShelby Memorial Hospital Start: 93-19-0456Vcmbzgxo to nephrologistMemorial Health System Mari[facility] Memorial Hospitaltart: 04-07-2024 End: 23-00-7952Qzzksty encounter jdwbnwihu18/06/2024 10:30 AM EST Office Visit [facility] [address] [place] [address] Allen Encarnacion DO [address] [place] [address] NOMS NB OPHTStart: 03-28-2024 End: 16-63-2685NE Maxillofacial region WO and W contrast IVCT maxillofacial wo IV contrast Imaging Routine Chronic frontal sinusitis Expected: 03/28/2024, Expi res: 03/28/2025[facility] Work Phone: Comment on above:Expected: 03/28/2024, Expires: 03/28/2025Start: 03-24-2024 End: 25-54-5756Yopikti encounter qwuodbmuv97/22/2024 2:10 PM EST Office Visit [place] [address] [facility] [address] [place] [address] Bryce Hendrickson MD [address] [facility] [address] [place] [address] [facility] HomeStart: 03-08-2024 End: 01-23-8499Iasfmie encounter /06/2024 9:20 AM EST Office Visit [facility] [address] [facility] [address] [place] [address] Chuck Cope MD [address] [facility] [address] [place] [address] [facility] RehabilitationNOMS CI ENTComment on above:ArrivedStart: 41-73-9770Nzylyqo referralShelby Memorial Hospital Work Phone: Start: 66-58-1044V-ray of lumbar spine, two or three viewsXR lumbar spine 2-3V*[facility] Hospitaltart: 01-20-2024 End: 33-96-2659Qaoooms encounter wiamcmfcr12/19/2024 10:20 AM EDT Office Visit [address] [place] [address] Bryce Hendrickson MD [address] [facility] [place] [address] [facility] HomeStart: 01-10-2024 End: 60-13-9431Wolmnfu encounter bwhrdnula05/09/2024 10:45 AM EDT Appointment [address] [place] [address] [facility]Start: 09-08-2024Medicare Annual Wellness VisitMedicare Annual Wellness Visit (AWV)[facility]: 43-68-0694NBBAL-19 Vaccine ( season)COVID-19 Vaccine ( season)[facility]: 68-14-4962VPYHN-19 Vaccine ( season) COVID-19 Vaccine ( season)[facility]: 89-63-8370Zndxg-19 Vaccine ( season)Covid-19 Vaccine ( season)[facility]: 49-53-8113Ceiri-19 Vaccine ( season) Covid-19 Vaccine ( season)[facility]: 23-18-3288Thpqx-19 Vaccine ( season)Covid-19 Vaccine ( season)[facility]: 56-04-0722Oflcffhfe vaccinationInfluenza Vaccine (#1)[facility]: 01-02-2024 End: 61-09-2269LH Heart TransthoracicTransthoracic Echo Complete Echocardiography Routine Mitral valve insufficiency, unspecified etiology Expected: 01/02/2024 (Approximate), Expires: 07/14/2025[facility] Service Area Work Phone: Comment on above:Expected: 01/02/2024 (Approximate), Expires: 07/14/2025Start: 55-79-3903EvuvidylrMemorial Health System Marietta Memorial Hospitaltart: 36-16-6040D-ray of lumbar spine, two or three viewsXR lumbar spine 2-3V* [facility] Hospitaltart: 67-72-8955UpsvmjypxMemorial Health System Marietta Memorial Hospitaltart: 08-70-4197Iwcoktc referralShelby Memorial Hospital Work Phone: Start: 59-76-6068C-ray of lumbar spine, two or three viewsXR lumbar spine 2-3V*[facility] Hospitaltart: 88-89-0646WJ Lumbar spine 2 or 3 ViewsMemorial Health System Marietta Memorial Hospitaltart: 07-13-2023 End: 95-97-2611Irvlmdg encounter wkotoglrf41/12/2024 10:50 AM EDT Office Visit [facility] [address] [facility] [address] [place] [address] Bryce Hendrickson MD [address] [facility] [address] [place] [address] [facility] HomeStart: 50-19-7245HFYCM CREATININESERUM CREATININE [facility]: 19-90-9069Enxctri Directive DiscussionAdvance Directive DiscussionSycamore Medical Centertart: 45-89-6241UrjbirnytShelby Memorial Hospital Start: 33-88-0258Jpmssowo admissionMemorial Health System Marietta Memorial Hospitaltart: 31-82-7971XfyvizkdqMemorial Health System Marietta Memorial Hospitaltart: 08-67-2069Bibvenbk to rehabilitation physicianMemorial Health System Marietta Memorial Hospitaltart: 04-13-2023 Hospital admissionMemorial Health System Marietta Memorial Hospitaltart: 04-09-2023 End: 52-94-0991FP Lumbar Laminectomy w/Fix Implants (Not Applicable)OR Lumbar Laminectomy w/Fix Implants (Not Applicable)[facility] Start: 04-09-2023 End: 26-75-8110TwqnggcwkMemorial Health System Mari[facility] Memorial Hospitaltart: 85-34-4195IGYVO-19 Vaccine (5 - Pfizer series)COVID-19 Vaccine (5 - Pfizer series)[facility]art: 81-16-7284SwjmsedhcMemorial Health System Marietta Memorial Hospitaltart: 03-02-2023 End: 19-84-9058Bnhox metabolic 2000 panel - Serum or PlasmaBasic Metabolic Panel Lab Routine Edema, unspecified type Expected: 03/02/2023 (Approximate), s: 03/02/2024[facility] Service Area Work Phone: Comment on above:Expected: 03/02/2023 (Approximate), Expires: 03/02/2024Start: 36-33-8282JHD, Provider: Bryce Hendrickson, Status: Pen, Time: 10:00 AMFUV, Provider: Bryce Hendrickson, Status: Pen, Time: 10:00 AM-[facility] [employer] [address] DO Work Phone: Start: 12-31-7714DYRK, Provider: [place] GRIDERI ULTRASOUND 01,[id number], Status: Pen, Time: 10:45 AMECHO, Provider: [place] HHVI ULTRASOUND 01,[id number], Status: Pen, Time: 10:45 AM-[facility] Heart- [place] [address] DO Work Phone: Start: 58-59-5739Eqnasnylk for osteoporosisBone Density [facility]: 07-18-5345BHUDSW NUC, Provider: [place] GRIDERI NUCLEAR 01,[id number], Status: Pen, Time: 12:00 PMSTRESS NUC, Provider: [place] HHVI NUCLEAR 01,[id number], Status: Pen, Time: 12:00 PM -[facility]-[place] [address] DO Work Phone: Start: 05-19-2022 End: 86-50-3582Jjogvf Ag 27-29 [Units/volume] in Serum or PlasmaWvumedicine Barnesville Hospital Work Phone: Comment on above:Expected: 05/19/2022, Expires: 07/19/2022Start: 44-51-1509DEBJNSN DIRECTIVE DISCUSSIONADVANCE DIRECTIVE DISCUSSIONSycamore Medical Centertart: 51-92-6404UPCNJ CREATININESERUM CREATININE [facility]: 10-25-1173MvsiegnrmMemorial Health System Marietta Memorial Hospitaltart: 50-87-3153Vlpklfone vaccinationINFLUENZA (#1)[facility]: 12-09-2021 Screening for osteoporosisBone Density [facility] Start: 57-79-8075BTZSYPUVREKV: 65+ (2 - PCV)PNEUMOCOCCAL: 65+ (2 - PCV)[facility]: 79-68-4064JZRTC-19 VACCINE (4 - Booster for Pfizer series)COVID-19 VACCINE (4 - Booster for Pfizer series)[facility]: 73-60-4875IWWJ DENSITYBONE DENSITYSycamore Medical Centertart: 57-92-3389Eqyixynab for osteoporosis Bone Density ScreeningSycamore Medical Centertart: 00-76-3171SXpM/Tdap/Td Vaccines (1 - Tdap)DTaP/Tdap/Td Vaccines (1 - Tdap)[facility]: 23-85-7269Izdsc microalbumin profileDTaP,Tdap,Td Vaccine (1 - Tdap)[facility]: 50-96-7583ESU High Risk: (Elderly (60+) or Population) (1 - Risk 60-74 years 1-dose series)RSV High Risk: (Elderly (60+) or Population) (1 - Risk 60-74 years 1-dose series)[facility]: 18-66-2068NDD patients and/or patients aged 60+ years (1 - 1-dose 60+ series)RSV patients and/or patients aged 60+ years (1 - 1-dose 60+ series)[facility]: 26-55-7711VEE Vaccine (1 - 1-dose 60+ series)RSV Vaccine (1 - 1-dose 60+ series)[facility] Start: 56-68-8923Cosazvunjk measurementCreatinine [facility]: 89-18-5205Jzoxqvnpi measurementPotassium [facility]: 96-25-6948EWSYVIEEQ (FIT-DNA)COLOGUARD (FIT-DNA) [facility]: 85-32-2476VhyfkkadrbxNFKIGZVVZBAZoenpsnlp ClinicStart: 65-58-0658LDBBEENGHZ CANCER SCREENINGCOLORECTAL CANCER SCREENINGWvumedicine Barnesville Hospital Start: 79-67-2457VY COLONOGRAPHYCT COLONOGRAPHYSycamore Medical Centertart: 1994 FECAL OCCULT BLOODFECAL OCCULT BLOODSycamore Medical Centertart: 56-00-4975Nxgxi panel Lipid ScreeningSycamore Medical Centertart: 15-20-7014ANRRG SCREENLIPID SCREEN [facility]: 93-01-4228Twetjsvbv for malignant neoplasm of colon [facility]: 36-50-1153CCXETRSXCGYEPIAVMZPMABBPFDGiiacglbh Clinic Start: 07-77-1838DodydgdxxigKYGSLDZKNOmrbwnrmt ClinicStart: 86-88-0800Lluifdqza for malignant neoplasm of breastSycamore Medical Centertart: 65-13-5974GIkZ/Tdap/Td Vaccines (1 - Tdap)DTaP/Tdap/Td Vaccines (1 - Tdap)[facility]: 69-03-0764Uxudr microalbumin profileDTAP,TDAP,TD (1 - Tdap) [facility]: 14-10-3598Yqprf screening for proteinCKD: Urine Protein ScreeningNorwalk Memorial Hospital: 71-99-5036IZEHUZ PCP TEAM CHRONIC DISEASE VISITANNUAL PCP TEAM CHRONIC DISEASE VISITSycamore Medical Centertart: 69-34-2386Rbcbogw ScreeningAnxiety ScreeningSycamore Medical Centertart: 12-83-7828HY CONTROLLED (<130/80)BP CONTROLLED (<130/80)[facility]: 12-07-1967 Diabetes mellitus screeningDiabetes ScreeningMercy Health Defiance Hospital Start: 62-68-8413LEZFFSSGM C SCREENINGHEPATITIS C SCREENINGWvumedicine Barnesville Hospital Start: 49-42-0535Krsjkopsh C screeningHepatitis C ScreeningNorwalk Memorial Hospital: 22-10-9478TLD Vaccines (1 of 1 - Standard series)MMR Vaccines (1 of 1 - Standard series)[facility]: 1950 Lipid panelLipid PanelUnWyandot Memorial Hospital: 08-06-1950Medicare Annual Wellness VisitMedicare Annual Wellness Visit (AWV)[facility]: 34-90-1975Ledcnfnfm for malignant neoplasm of colonMercy Health Defiance HospitalAnion gap [facility] Comprehensive metabolic 1999 panel - Serum or [facility] HospitalComprehensive metabolic 1999 panel - Serum or [facility] End: 64-59-7624Ggsrozagib mammography computer-aided detcj uniMAM DIAGNOSTIC RT Radiology Routine Malignant neoplasm of upper-outer quadrant of left breast in female, estrogen receptor negative (HCC) 1 Occurrences starting 05/19/2022 until [facility] Work Phone: Comment on above:1 Occurrences starting 05/19/2022 until 06/18/2023EMG 2 [facility] Work Phone: Comment on above:Ordered: 10/23/2024Glomerular filtration rate [Volume Rate/Area] in Serum, Plasma or Blood by Creatinine [facility] HospitalHuman papilloma virus 16+18+31+33+35+39+45+51+52+56+58+59+66+68 DNA [Presence] in Cervix by Probe with signal amplificationShelby Memorial Hospital End: 73-28-1512YC Breast - right Diagnostic for implantMAM DIAGNOSTIC RIGHT Radiology Routine Malignant neoplasm of upper-outer quadrant of left breast in female, estrogen receptor negative (HCC) (HCC) 1 Occurrences starting 06/22/2023 until [facility] Work Phone: Comment on above:1 Occurrences starting 06/22/2023 until 07/21/2024 End: 67-65-0643RC Breast - right Diagnostic for implantMAM DIAGNOSTIC RIGHT Radiology Routine Malignant neoplasm of upper-outer quadrant of left breast in female, estrogen receptor negative (HCC) 1 Occurrences starting 08/21/2024 until [facility] Work Phone: Comment on above:1 Occurrences starting 08/21/2024 until 09/20/2025MR [facility]Patient EducationDayton [facility] Work Phone: Patient referralDayton Children'S Hospital [facility]tr Work Phone: End: 82-45-5600KU [facility]sthoracicPLA[facility] Service Area Work Phone: Comment on above:Once for 1 Occurrences starting 01/18/2024 until 01/18/2024XR Chest 2 [facility] Foot - left GE 3 [facility]XR Lumbar spine 2 or 3 [facility]XR Lumbar spine 2 or 3 [facility] Lumbar spine 2 or 3 [facility] Immunizations Immunization DateImmunizationNotesCare CppydinfQmeecvyk09-84-3735jgujotiqc, high dose seasonal, preservative-freeBenjamin Ball DO Work Phone: [facility]09-22-2023Influenza, Seasonal, Quadrivalent, AdjuvantedBryce Hendrickson MD Work Phone: [facility] Work Phone: [phone] COVID-19 vaccine, Fall 2022, 12 years and older, (30mcg/0.3mL)Bryce eHndrickson MD Work Phone: [facility] Work Phone: [phone] virus vaccine, unspecified formulationTriny Mart RN Work Phone: [facility] HospitalQcbsgj85-16-0658aguyeoazmbug conjugate vaccine, 13 valentBenjamin E Ball Work Phone: [facility] HospitalThldqd45-40-9001Xuecqce COVID-19 Vaccine 100 MCG/0.5ML Intramuscular SuspensionBenjamin E Ball Work Phone: [facility] HospitalCopdpj03-96-7587Svvxiy COVID-19 Vac Bivalent 30 MCG/0.3ML Intramuscular SuspensionBenjamin E Ball Work Phone: [phone]-IsvgiRidgeview Medical [facility] 250 DO Work Phone: [phone]-12 Pfizer (Pediatric)Sylvester Jacob Other [facility]09-14-2022Fluad Quadrivalent 0.5 ML Intramuscular Prefilled SyringeBenjamin E Nidia Work Phone: [facility] HospitalPihayj86-38-6448xltccmuuo nasal, unspecified formulationJacob Mercado MD Work Phone: [facility] HospitalEaixmi56-09-6490dfcseqhyg virus vaccine, split virus (incl. purified surface antigen)Sylvester Jacob Other [facility] [employer] Other 09343093-87-3802ekuctxtqd virus vaccine, unspecified formulationDO Sylvester Jacob Work Phone: [facility]09-14-2022influenza, injectable, quadrivalent, preservative Joselin Cope MD Work Phone: [facility] HospitalKpwdojtjik76-70-5662fobdfzqjn, seasonal, injectableBenjamin E Nidia Work Phone: [facility] HospitalComment on above:Series:08-28-2021 Comirnaty 30 MCG/0.3ML Intramuscular SuspensionBenjamin E Nidia Work Phone: [phone]-RuwtxNorthfield City Hospital 250 DO Work Phone: [phone]-68 Vaccine Pfizer - Documentation Purposes OnlyDavidpariskaroline Jacob Other [facility]09-28-2021COVID-19 mRNA, Comirnaty (Pfizer)DO Sylvester Jacob Work Phone: [facility]09-28-2021Fluzone High-Dose Quadrivalent 0.7 ML Intramuscular Suspension Prefilled SyringeBenjamin Galo Jacob Work Phone: [facility] HospitalMijctu19-58-7408fntclloswfqc polysaccharide vaccine, 23 valentBenjamin E Nidia Work Phone: [facility] HospitalBazntq54-71-9456QOJQC-67 mRNA, Comirnaty ([employer])DO Sylvester Jacob Work Phone: [facility]02-08-2021COVID-19 mRNA, Comirnaty (Pfizer)DO Sylvester Jacob Work Phone: [facility]01-25-2021zoster vaccine recombinantBenjamin E Nidia Work Phone: [facility] HospitalXyketm18-39-7305hofxan vaccine, liveBenjamin Nidia Other [facility]10-28-2020zoster vaccine recombinantBenjamin Galo Jacob Work Phone: [facility] HospitalOoogts19-32-4699mzlroj vaccine, liveBenjamin Nidia Other [facility]10-01-2020influenza, injectable, quadrivalent, preservative freeDO Sylvester Jacob Work Phone: [facility]09-30-2020influenza nasal, unspecified formulationJacob Mercado MD Work Phone: [facility] HospitalItepls33-36-0423dsucbedyo virus vaccine, split virus (incl. purified surface antigen)Sylvester Jacob Other [employer] Other [id number] virus vaccine, unspecified formulationDO Sylvester Jacob Work Phone: [facility]09-28-2020influenza, high dose seasonal, preservative-freeBenjamin Galo Jacob Work Phone: [facility] HospitalSwoyfr07-01-6320Cwtnyevds, High-dose Seasonal, Quadrivalent, Preservative Joselin Cope MD Work Phone: [facility] HospitalVtxlwajfxc49-24-2656roqrjsdeu, injectable, quadrivalent, preservative freeBenjamin E Ball Work Phone: [facility] HospitalZzapiu55-92-3901olwesxqpe nasal, unspecified formulationJacob Mercado MD Work Phone: [facility] HospitalOdloab55-98-6328lgclcjvlp virus vaccine, split virus (incl. purified surface antigen)Sylvester Jacob Other [employer] Other 746684-92-0850dcngdjnth virus vaccine, unspecified formulationDO Sylvester Jacob Work Phone: [facility]10-18-2018influenza, high dose seasonal, preservative-freeBenjamin E Ball Work Phone: [facility] HospitalOvqtiw38-43-4694xexlgywkm virus vaccine, unspecified formulationBenjamin E Ball Work Phone: [phone]-RdsakPhillips Eye Institute 600 DO Work Phone: [phone], injectable, quadrivalent, preservative freeBenjamin E Ball Work Phone: [facility] HospitalKvvvru02-47-0244eeuttscbh, injectable, quadrivalent, preservative freeBenjamin E Ball Work Phone: [facility] HospitalSaacdw25-07-5854ldxjjglud, injectable, quadrivalent, preservative Joselin Cope MD Work Phone: [facility] HospitalQgfcftojqt51-64-7050otqeszfqrroi polysaccharide vaccine, 23 valentBenjamin E Ball Work Phone: [facility] HospitalVihckw71-53-4535hjkskmcjm, high dose seasonal, preservative-freeBenjamin E Ball Work Phone: [facility] HospitalEswghq02-33-8763dlgjpilbt virus vaccine, unspecified formulationBenjamin E Ball Work Phone: [phone]-MktpePhillips Eye Institute 600 DO Work Phone: [phone]ysyihqzb conjugate vaccine, 13 valent Sylvester Jacob Work Phone: [facility] HospitalQqoeaz20-93-1590gdtzendif nasal, unspecified formulationJacob Mercado MD Work Phone: [facility] HospitalMylnti70-06-8656kxjcqsdlk virus vaccine, split virus (incl. purified surface antigen)Sylvester Jacob Other [facility] [employer] Other 01433315-49-3166vocscwqhi virus vaccine, unspecified formulationDO Sylvester Jacob Work Phone: [facility]01-03-2017influenza, injectable, quadrivalent, preservative freeBenjamin E Nidia Work Phone: [facility] HospitalUterps75-39-1747chvwkwvro, injectable, quadrivalent, contains preservativeBenjamin E Nidia Work Phone: [facility] HospitalKqzmis26-57-6801ztycghigd, injectable, quadrivalent, preservative Mahsa Mercado MD Work Phone: [facility] HospitalXangqv62-96-8852pfdvnhqex virus vaccine, unspecified formulationBenhaseeb Jacob Work Phone: [phone]-BmcozPhillips Eye Institute 600 DO Work Phone: [phone]vqsk conjugate vaccine, 13 valent Sylvester Jacob Other [facility]05-16-2016 pneumococcal Conjugate, unspecified formulation; Translations: [Need for prophylactic vaccination against Streptococcus pneumoniae (pneumococcus)] Sylvester Jacob Other [facility] [employer] Other 01906060-53-4923ufnpgrhahach polysaccharide vaccine, 23 valentBenjamin Galo Jacob Work Phone: [facility] HospitalTtklud73-24-9291aavbcabqc virus vaccine, unspecified formulationBenjamin E Nidia Work Phone: mpPhillips [facility] 600 DO Work Phone: [phone]aticzrsf polysaccharide vaccine, 23 valentBenjamin Ball Other [facility]10-22-2014tetanus and diphtheria toxoids, adsorbed, preservative free, for adult use (5 Lf of tetanus toxoid and 2 Lf of diphtheria toxoid)Sylvester Jacob Other [facility]10-01-2014influenza virus vaccine, unspecified formulationBenjamin E Ball Work Phone: [phone]-RztbePhillips Eye Institute 600 DO Work Phone: [phone]iij vaccine, Brook Mercado MD Work Phone: [facility] HospitalFrzivq98-35-9670qnrvgelsivrd polysaccharide vaccine, 23 valentBenjamin E Ball Work Phone: [facility] HospitalTufkds38-98-7807lqxcfbgnascq polysaccharide vaccine, 23 valentBenjamin E Ball Work Phone: [facility] HospitalHwimyg14-88-2911mnvozxbbx virus vaccine, unspecified formulationJacob Mercado MD Work Phone: [facility] HospitalTxflft02-48-5387wmjkcxhhjcbt polysaccharide vaccine, 23 Yasmeen Mercado MD Work Phone: [facility] HospitalQhumdl46-12-1355riuoyugrg, high dose seasonal, preservative-freeBryce Hendrickson MD Work Phone: [facility] Work Phone: [phone]y, high dose seasonal, preservative-freeBryce Hendrickson MD Work Phone: [facility] Work Phone: [phone]pzs virus vaccine, unspecified formulationBryce Hendrickson MD Work Phone: [facility] Work Phone: influenza virus vaccine, unspecified formulation Sylvester Rosenthal Nidia Work Phone: [phone]-Plapl [facility] 600 DO Work Phone: Comment on above:[id number] Payers DatePayer CategoryPayerPolicy [id number] supplemental policy (as second payer)[employer] Member Subscriber Plan / Payer (Effective 2018-Present) Name: Renuka Owen Yissel Relation to Subscriber: Self Name: Brayden, Renuka A Payer ID: Not on file Group ID: Not on file Type: Not on file Address: [address] [place] [id number]3-2434Gfnrncm Health [id number] 2015Medicare [id number] [id number] Health [id number]-00y6-tt7msa[id number] 2.1.068559.3.579.2.14938-75-5507Eoeykke927661363 2..1.273528.3.579.2.77582-43-8597Tizezlw8713285 2.1.675783.3.579.2.90873-27-6313Ugpnser9645414 2.16.840.1.628140.3.579.2.06757-40-9786Sxmfevi1044545 2.16.840.1.057590.3.579.2.85412-83-8637Epdkqjs7899719 2.16.840.1.779735.3.579.2.98187-64-4284Mhtgxrh1915171 2.16840.1.699256.3.579.2.56741-62-1222Figzymw6620926 2.16840.1.942786.3.579.2.75565-52-6198Minijyj27309801 2.840.1.679552.3.579.2.805897-81-1429Vxbjsvz55640138 2.840.1.973684.3.579.2.851932-39-8762Zutjxiy909110347 2.840.1.863152.3.579.2.00749-06-4551Ohocjuk11470113 2.840.1.568140.3.579.2.041641-97-7143Swvffrs68735181 2.840.1.664196.3.579.2.997827-84-8274Cittiyj69126939 2.840.1.858167.3.579.2.511972-24-1729Kwjvizi3901513 2.840.1.134399.3.579.2.455172-35-9750Judvhys7409696 2.840.1.514751.3.579.2.148191-76-4902Xpqhnmf5789339 2.16840.1.360663.3.579.2.437500-62-4256Gegbbrf6336471 2.840.1.088040.3.579.2.111293-16-9681Oyknagr6091932 2.0.1.128660.3.579.2.311292-31-9903Vpiqfty4975910 2.0.1.605978.3.579.2.327685-70-8889Vrukwer7041770 2.0.1.561889.3.579.2.209896-84-5604Dasqbpo325944020 2.0.1.406899.3.579.2.465957-56-4664Yahbnsq532460357 2.0.1.391046.3.579.2.085968-19-5633Ezbprqf57200581 2.0.1.885[id number] Insurance [id number] 7w310d6p-y7c4-4x53-66b1-42h8yo06w286Yccwthj29345183 2..1.207024.3.579.2.660Vjudyla73419994 2.0.1.522331.3.579.2.531 Bhpiptk39785229 2.0.1.160932.3.579.2.386Qtfsrta48452935 2.0.1.448588.3.579.2.878Hmmbiqb32112268 2.0.1.723355.3.579.2.531 Baeobuq70903117 2.0.1.388486.3.579.2.873Brqyqlw85861260 2.0.1.862038.3.579.2.531 Social History DateTypeDetailFacilityStart: 09-24-2021 End: 22-47-3255Rgzgywv smoking status NHISNever smoked tobacco (finding) [facility] Hospitalt[facility]: 72-19-3980Ycd Assigned At BirthFemale [facility] Hospitaltart: 03-02-2023 End: 58-94-8259Nfk Assigned At BirthSy[facility]ore Medical Centertart: 03-02-2023 End: 10-06-2564Qscbqbw useAlcohol useSycamore Medical Centertart: 03-30-2012 End: 40-46-0617Xtfotkz use and exposureSmokeless tobacco non-userSycamore Medical Centertart: 04-08-2021 End: 44-27-3284Cybloha intakeCurrent drinker of alcohol (finding)[facility]ert[facility]: 38-59-2776Cthxugw Commentvery seldomSycamore Medical Centertart: 75-33-3321Ilc Assigned At BirthNot on fileSycamore Medical Centertart: 03-02-2023 End: 12-74-4575Lnyaebt intakeNot AskedMercy Health Defiance Hospital Work Phone: Start: 23-13-9490Mfqdfjw CommentsocialMercy Health Defiance Hospital Work Phone: Start: 02-20-2023 End: 68-91-2993Cgnldfxe to SARS-CoV-2 (event)Not sureMercy Health Defiance HospitalStart: 38-84-6953Whvcjk identityIdentifies as female gender (finding) [facility] Work Phone: Start: 03-28-2022 End: 48-30-2275Ruryh Depression Screening Yxfgbumyzs8Bscxjhiuf ClinicStart: 45-58-0418Rqrrcpe CommentrarelyMercy Health Defiance Hospital Work Phone: Start: 83-30-0621Bdhjutu Commentcaffeine intake: 2-3 cups per day of diet cokeNOMS HealthcareStart: 35-53-2888Wfebczfvx beverage intakeEx-drinker (finding)[facility] HealthcareStart: 03-28-2022 End: 28-64-4147FfnPlqniy (finding)[facility] Hospitaltart: 06-05-2024 End: 43-19-5366XFNK Follow upSDOH Follow upOur [facility] Work Phone: Medical Equipment Procedure CodeEquipment CodeEquipment Original TextEquipment IdentifierDates Smq-Uh-K-Kind Implant - [id number]: 08-99-2229Vzeuqyo on above: Description: [place] CPX3 Med Height Tissue OxbrwoxsFbo-Bk-C-Kind Implant - [id number]: 51-25-8568Kcbxjix on above:Description: Natrelle Silicone Filled Breast ImplantExp Tiss 550ml Styl 7200 Med - [id number] Start: 93-38-5654Kxj Brst 700ml Styl 20 Smth - [id number]: 87-52-6839Hvdblws on above:Description: smooth round high profileSpinal fusion graft kit()[id number] FDAStart: 95-36-7634Uvoy- screw internal spinal fixation system, non-sterile+[id number] FDAStart: 34-00-5956Svmi-screw internal spinal fixation system, non-sterile+[id number] FDAStart: 58-49-8825Exhcgjkii spinal fusion cage, non-sterile ()[id number] FDAStart: 59-40-2634Hgxp-screw internal spinal fixation system, non-sterile+[id number] FDAStart: 19-58-3575Eaqj-screw internal spinal fixation system, non-sterile+[id number] FDAStart: 03-30-2022 Spinal fusion graft kit()[id number])[id number] FDAStart: 24-71-6728Zhjhlrllo spinal fusion cage, sterile ()[id number] FDAStart: 22-06-7955Sfh-Of-A-Kind Implant - [id number]: 73-56-6686Uqzqdfw on above:Description: Natrelle Silicone Filled Breast ImplantImp Brst 375ml Styl 20 Smth - [id number] Start: 44-63-8398Ildzbev on above:Description: smooth round high profile Goals DatePatient GoalDesired Activity/State Functional Status ZdqhBnikfsjheiRwlypxHwgobnqn72-98-9158Icjifvgvuj /[address] [place], [place] [address]6410-20-2025UnM[facility] Work Phone: [phone] bwowcj423/[address] [place] [address] Work Phone: [phone] signs68 01/30/2025 9:30 AM Ana Maria Mai, [facility] Work Phone: [phone] Health Defiance Hospital Work Phone: [phone] statusPatient Not at Baseline [facility] Work Phone: [phone] statusPatient at Baseline [facility] Work Phone: [phone] statusPatient Not at Baseline [facility] Work Phone: [phone]fob statusPatient at Baseline [facility] Work Phone: [phone] statusPatient at Baseline [facility] Work Phone: [phone] statusPatient is Progressing Toward [facility] Work Phone: [phone] statusPatient is Progressing Toward [facility] Work Phone: [phone] statusPatient is Progressing Toward [facility] Work Phone: [phone] you deaf, or do you have serious difficulty hearingNo 06/20/2020 12:13 PM Janelle Wagner RN NoCAccess Hospital DaytonYmoauk55-75-9167Qqa you blind, or do you have serious difficulty seeing, even when wearing glassesNo 06/20/2020 12:13 PM Janelle Wagner RN NoCAccess Hospital DaytonAszrig04-25-8309Dc you have serious difficulty walking or climbing stairsNo 06/20/2020 12:13 PM Janelle Wagner RN NoCAccess Hospital DaytonHmkkcx03-67-1611Ib you have difficulty dressing or bathingNo 06/20/2020 12:13 PM Janelle Wagner RN NoCAccess Hospital DaytonIkqlrd16-18-5157Waiflgj of a physical, mental, or emotional condition, do you have difficulty doing errands alone such as visiting a physician's office or shoppingNo 06/20/2020 12:13 PM Janelle Wagner RN No [facility] Mental Status CrltQbmhrzgqfwAmqaldHwvcdemq97-25-2154Qwawhwmpl functionCognitive Status Patient Not at [facility] Work Phone: [phone] functionCognitive Status Patient at [facility] Work Phone: [phone] functionCognitive Status Patient at [facility] Work Phone: [phone]) [phone]by functionCognitive Status Patient at [facility] Work Phone: [phone] functionCognitive Status Patient at [facility] Work Phone: [phone] functionCognitive Status Patient at [facility] Work Phone: [phone] functionCognitive Status Patient at [facility] Work Phone: [phone] functionCognitive Status Patient at [facility] Work Phone: [phone] of a physical, mental, or emotional condition, do you have serious difficulty concentrating, remembering, or making decisionsNo 06/20/2020 12:13 PM Janelle Wagner RN [facility] Clinical Notes 06-19-2020 to 02-12-2025 Note Date & MtrwFbazQyfgskum54-41-1533 History of Present illness Narrative* ANA Cantu - 02/12/2025 2:45 PM EDT Images from the original note were not included. Orthopedic Office note: NAME: Renuka Owen : 1950 (EST PT) (LAST APPT W/ KEY) - (R) SHOULDER DISCOMFORT SINCE ~07/2019 (5 YRS, 7 MONTHS) ; FLARE UP AFTER 1-MONTH HOSPITAL STAY FOR COLITIS 10/2024 (3 MONTHS) @[facility] ; NKI XRAY TODAY, 02/12/25 IN EPIC MRI 04/29/21 IN EXA MRI 07/22/20 @[facility] 03/26/21 HX (R) SA CORTISONE INJECTION INTERMITTENT [...] the month. F/U after appt with her Product Marketing Programs Manager to discuss possible SA injection. Questions answered in laymen terms at the bedside. The diagnosis, home exercise plan and any ongoing restrictions/ recommendations reviewed. If unable to be reached in office, I recommend evaluation at nearest Emergency Room if any symptoms worsened or new symptoms develop for requiring urgent evaluation. Visit was preformed using [employer]-docking pilot speech recognition. documented in this encounterSt. Lukes Des Peres HospitalZkbanremvi08-98-8856 History of Present illness Narrative* Bryce Hendrickson MD - 01/30/2025 9:30 AM EDT HPI Patient is in the office for follow-up for history of LV systolic dysfunction with mitral regurgitation and with history of essential hypertension. She was in the hospital October 2024 at [facility] withsepsis and multiorgan failure and requiring intubation mechanical ventilation with ongoing colitis as well. During that admission she was seen by cardiology with indication of severe LV systolic dysfunction ejection fraction was down to 25%. The patient since has recovered and spent 5 weeks in group home and now she is walking with a [...] dysfunction, echocardiogram October 2024 as inpatient and [facility] initially showed EF of 25% with slight [...] content normal. Judgment: Judgment normal. Allergies Penicillins, Thyvgpy-zeq-beb reductase inhibitors, and Atorvastatin Current Medications Current [...] Scribe Attestation By signing my name below, IPari LPN, Scribe attest that this documentation has [...] exam, discussion and plan. documented in this [facility] Work Phone: 1([phone]) 106-244609-30-2025 Instructions* Patient Instructions* Pari Teague LPN - [...] Care Everywhere. * Body Mass Index, Adult (Irish) documented in this [facility] Work Phone: 1(284) 563-571907-03-2025 Evaluation note* Diagnosis Onset Date Resolution Status [...] 2024 4:07pmAcute kidney injury resolvedSeptember 2024 4:07pm [facility] Work Phone: 1(511) 798-582907-03-2025 Evaluation note* Diagnosis Onset Date Resolution Status [...] 11:36am HypertensionacuteSeptember 2024 11:36amLumbar stenosis without neurogenic claudicationacuteSept2024 11:36amOpiate analgesic use agreement existsacuteSept2024 11:36amUnsteady gait when walkingacuteSept2024 11:36am [facility] Work Phone: 1(484) 184-727907-03-2025 Radiology Diagnostic study [facility] [place] [address] [place] [address] CT Scan Report Signed Patient: Renuka Owen MR#: [id number] : 1950 Acct:[id number] Age/Sex: 73 / F ADM Date: 5 Loc: ER Room: Type: [facility] ER Attending Dr: Copies to: Regina Garcia [...] Saravia M.D. 11/02/2024 1:38 PM Dictation Location: [facility] Transcribed By: BJORN 11/02/248 Dictated By: Samuel Saravia MD 11/02/241332 Signed By: 11/02/241337 [facility] Work Phone: 1(717) 632-414107-03-2025 Radiology [facility] [place] [address] [place] [address] CT Scan Report Signed Patient: Renuka Owen MR#: [id number] : 1950 Acct:[id number] Age/Sex: 73 / F ADM Date: 5 Loc: ER [facility]: [facility] [facility] Attending [facility]: Copies to: Regina Garcia [...] Saravia M.D. 11/02/2024 1:33 PM Dictation Location: [facility] Transcribed By: BJORN 11/02/241332 Dictated By: Samuel Saravia MD 11/02/241330 Signed By: 11/02/241332 [facility] Work Phone: 1(330) 402-233506-23-2025 History of Present illness Narrative* Bran Linda [...] since progressed to her ankles. She experiences xfjt-yqg-dxjlhaa and burning sensations in her left heel [...] Shoulder shrug normal. Motor Examination Strength: Hand auto parts handler strength normal. Lower limb strength normal. Sensory [...] in all four extremities, including at least auto parts handler, finger abductors, biceps, triceps, deltoid, toe flexors [...] 12. This clinical note was created utilizing Slide documentation system. All information has been thoroughly reviewed, corrected as necessary, and authenticated by the provider to ensure accuracy and completeness. On occasion, [employer] documentation system erroneously drops words or replaces a spoken word with a similar sounding word. Please notify with any questions or concerns regarding this clinical note. documented in this encounterSt. Lukes Des Peres HospitalHluftikmfq07-35-0817 History of Present illness Narrative* Tamy Khan DPM - 09/28/2024 10:15 AM EDT Images from the original note were not included. Subjective Patient ID: Renuka Owen is a 73 y.o. female who presents for Foot Pain (Renuka Owen is a 73y.o. female requesting to [...] Skechers footwear for activities, particularly walking at [place]. Notes swelling towards the end of [...] Rfl: 3 omeprazole (PriLOSEC) [address] kristofer, , Disp: , Rfl: torsemide (Demadex) 10 [...] LUMBAR FUSION 04/01/2022 L4-L5 MASTECTOMY Left 2011 [place] ARTHROSCOPY KNEE DIAGNOSTIC W/WO SYNOVIAL BX SPX 1994 [place] ARTHROSCOPY KNEE DIAGNOSTIC W/WO SYNOVIAL BX SPX Right 1985 DR. Driver ROTATOR CUFF REPAIR Left 08/02/2017 Dr. Hankins TONSILLECTOMY TUMOR EXCISION 06/19/2020 presacral tumor removed Family History Family History Problem Relation Name Age of Onset Breast cancer Mother Alejandra Redganga Glaucoma Mother Alejandra Redganga Cancer Mother Alejandra [...] understanding. Tamy Khan DPM documented in this encounterSt. Lukes Des Peres [id number] Instructions* Patient Instructions* Tamy Khan DPM - 09/28/2024 10:15 AM EDT As noted documented in this encounterSt. Lukes Des Peres HospitalBoskczgkir56-74-1178 History of Present illness Narrative* Tamy Khan [...] LUMBAR FUSION 04/01/2022 L4-L5 MASTECTOMY Left 2011 [place] ARTHROSCOPY KNEE DIAGNOSTIC W/WO SYNOVIAL BX SPX 1994 [place] ARTHROSCOPY KNEE DIAGNOSTIC W/WO SYNOVIAL BX SPX [...] understanding. Tamy Khan DPM documented in this encounterSt. Lukes Des Peres [id number] Evaluation note* Diagnosis Onset Date Resolution Status [...] mental statusacuteJuly 2024 3:00pm PancolitisacuteJuly 2024 3:00pm [facility] Work Phone: 1(838) 773-981105-05-2025 Evaluation note* Diagnosis Onset Date Resolution Status [...] ICU syndromeacuteJuly 2024 3:00pmSeptic shockacuteJuly 2024 3:00pm [facility] Work Phone: 1([phone]) 465-421305-05-2025 Evaluation note* Diagnosis Onset Date Resolution Status [...] 2024 3:00pmMitral regurgitationacuteJuly 2024 3:00pmOrthostatic hypotensionacute Irma 2024 3:00pmPost ICU syndromeacuteJuly 2024 3:00pmAcute hypotensionresolvedJuly [...] 6:25pm PancolitisresolvedJuly 2024 6:25pmSeptic shockresolvedJuly 2024 6:25pm [facility] Work Phone: 1([phone]) 785-605104-20-2025 NoteHNO ID: [id number] Author: JACOB MERCADO MD Service: ? Author [...] Value 08/21/2024 34.2 1 (more content not included)...[facility]04-20-2025 History of Present illness Narrative* Jacob [...] 308 RADIOLOGY/OTHER STUDIES: 02/14/2024 Diagnostic right mammogram ([facility]) Benign finding. No change from comparison. Recommend routine mammogram in 12 months. 02/08/2023 Diagnostic right mammogram ([facility]) Benign finding. No change from comparison. Recommend routine mammogram in 12 months. 05/10/2022 Chest CTA ([facility]) No evidence for acute pulmonary embolism, thoracic aortic aneurysm, or aortic dissection. Mild cardiomegaly with trace 3 mm thick pericardial effusion. Mosaic attenuation of the bilateral lungs reflect sequelae of reactive airway inflammation. Moderate bilateral upper and lower lung linear scar. 04/08/2020 CT abdomen/pelvis ([facility]). 6.4 x 3.3 cm soft tissue [...] advanced left breast cancer diagnosed March 2011. ER/[place] negative, HER-2 negative (triplenegative). Status post preop [...] presacral space. The patient was referred to [facility] colorectal surgery (Dr. Lorenzo) and underwent surgical [...] CC: Dr. Jairo Jacob documented in this encounterWvumed[facility]03-03-[facility] Evaluation note* Diagnosis Onset Date Resolution Status Admit Date Anemia acuteMarch 2024 1:18pmCervical spondylosis with radiculopathyacuteMarch 2024 1:18pmChronic HFrEF (heart failure with reduced ejection fraction) acuteMarch 2024 1:18pmChronic kidney diseaseacuteMarch 2024 1:18pm Chronic venous insufficiency of lower extremityacuteMarch 2024 1:18pm HypertensionacuteMarch 2024 1:18pmLumbar stenosis without neurogenic claudicationacuteMarch 2024 [...] analgesic use agreement existsacuteMay 2024 10:26amLeft knee painnoneactive May 2024 10:26am [facility] Work Phone: 1([phone] 667-786103-03-2025 Telephone encounter Note* Telephone Encounter - Chuck Cope MD - 07/03/2024 12:07 PM EST prn [facility] [id number] Miscellaneous Notes* Telephone Encounter - Chuck Cope MD - 07/03/2024 12:07 PM EST prn * Telephone Encounter - Megan Church - 07/03/2024 9:21 AM EST pt cld 07/03/24 to cancel 07/18 appt -did not get CT scan done and has had alot of rehab she needs to finish will call to r/s later documented in this encounterSt. Lukes Des Peres HospitalJoeaicqzic70-04-5342 Telephone encounter Note* Telephone Encounter - Megan Church - 07/03/2024 9:21 AM EST pt cld 07/03/24 to cancel 07/18 appt -did not get CT scan done and has had alot of rehab she needs to finish will call to r/s later [facility] HospitalEntgmbxlsu54-05-5111 Evaluation note* Diagnosis Onset Date Resolution Status Admit Date History of total left knee replacement acuteFebruary 2024 9:30amPes anserinus bursitis of left kneeacuteFebruary 2024 9:30amAnemiaacuteMarch 2024 1:18pmCervical spondylosis with radiculopathyacuteMarch 2024 1:18pmChronic HFrEF (heart failure with reduced ejection fraction)acuteMarch 2024 1:18pmChronic kidney diseaseacute March 2024 1:18pmChronic venous insufficiency of lower extremityacuteMarch 2024 1:18pmHypertensionacuteMar2024 1:18pmLumbar stenosis without neurogenic claudicationacuteMarch 2024 1:18pmLeft [...] analgesic use agreement existsacutey 2024 10:26amLeft knee painnoneactiveMay 2024 10:26am [facility] Work Phone: [phone] Consult note Author Jared Louis [facility] HospitalNote Date/TimeFebruary 2024 11:35am [place] [address] Physiatry (Rehab) Consult Note Signed Patient: Renuka Owen MR#: [id number] : 1950 Acct:[id number] Age/Sex: 73 / F Adm Date: 5 Loc: Room: [address] [place] [address] Type: ADM IN Attending Dr: Landon Whitfield [...] She was hoping to go to the [facility] in [place] but they did not have a bed available. She is now looking to possibly come to inpatient rehab. Review of Systems Review of Systems All other systems reviewed & are negative unless noted below or in HPI [facility] Medical History Chronic kidney disease Unsteady gait [...] 600 +D(3)) 1 tab PO BID osteoporosis 05/25/22 [History Confirmed 06/01/24] melatonin 10 mg tablet [...] Calcium 8.7 Magnesium 1.7 L Assessment/Plan (1) Gipnt-lg-crpcisr kidney injury: (2) Unsteady gait when walking: [...] chart, including current orders, allied health and building consultant notes, labs/imaging and performed butts elements of exam and I formulated the plan of care and facilitated the medical decision making. I completed a substantive portion of this encounter, the medical decision makingportion of this note in its entirety, including Allied health note review, nursing note review, building consultant note review,discussion with nursing and case management, and more than 50% of my time was spent on counseling and coordination of care, time spent 60 minutes Documented By: Jared Louis MD 929 Signed By: <Electronically signed by Jared Louis MD> 06/05/24 1135 [facility] Work Phone: 1([phone]) 139-751902-03-2025 Progress note Author Sheringinny Arellano [facility] HospitalNote Date/TimeFebruary 2024 10:42am [place] [address] Nephrology Progress Note Signed Patient: Renuka Owen MR#: [id number] : 1950 Acct:[id number] Age/Sex: 73 / F Adm Date: 5 Loc: Room: [address] [place] [address] Type: ADM IN Attending Dr: Landon Whitfield MD Copies to: ~ Date of Service: 06/05/2024 Subjective Subjective Narrative: This is a 73-year-old female with medical history of CKD, anemia, orthostatic hypotension, mitral regurgitation, HFrEF, HTN, cervical spondylosis was presented to the emergency room after mechanical fall. Patient was recently admitted at [facility] for LATANYA and was seen [...] Skin: No rashes , warm to touch RESEARCH COORDINATOR: Awake,Alert, following simple command Musculoskeletal: No swelling [...] 81 Mg Tablet.) 81 mg PO DAILY [facility] Stop: 06/02/25 08:59 Last Admin: 06/05/24 09:41 Dose: 81 mg Baclofen (Baclofen 20 Mg Tablet) 20 mg PO QPM [facility] Stop: 06/04/25 20:59 Last Admin: 06/04/24 20:14 Dose: 20 mg Carvedilol (Carvedilol 3.125 Mg Tablet) 3.125 mg PO BID.WITH.MEALS [facility] Stop: 06/04/25 16:59 Last Admin: 06/05/24 09:41 Dose: 3.125 mg Diphenhydramine HCl (Diphenhydramine 50 Mg/Ml Vial) 25 mg IV-PUSH QHS PRN PRN Reason: Insomnia refractory to baclofen/trazadone Stop: 06/04/25 21:59 Enoxaparin Sodium (Enoxaparin 30 Mg/0.3 Ml Syringe) 30 mg SUBCUT DAILY@10 [facility] Stop: 06/02/25 09:59 Last Admin: 06/05/24 09:42 Dose: 30 mg Fluticasone Propionate (Fluticasone Propionate Camden 120 Camden/16 Gm Bottle) 2 spray NARES-BOTH DAILY PRN PRN Reason: NASAL CONGESTION Stop: 06/02/25 08:59 Last Admin: 06/03/24 11:32 Dose: 2 spray Gabapentin (Gabapentin 600 Mg Tablet) 600 mg PO TID [facility] Stop: 06/03/25 13:59 Last Admin: 06/05/24 09:42 Dose: 600 mg Montelukast Sodium (Montelukast 10 Mg Tablet) 10 mg PO [facility] Stop: 06/01/25 21:59 Last Admin: 06/04/24 20:14 Dose: 10 mg Pantoprazole Sodium (Pantoprazole 40 Mg Tablet.) 40 mg PO BID.AC.BKFAST.SUPPER [facility] Stop: 06/02/25 07:29 Last Admin: 06/05/24 06:13 Dose: 40 mg Sodium Chloride (Sodium Chloride 0.9 % 10 Ml Syringe) 0 ml IV-PUSH PRN PRN PRN Reason: Flush Stop: 06/01/25 11:38 Last Admin: 06/01/24 12:07 Dose: 10 ml Torsemide (Torsemide 20 Mg Tablet) 20 mg PO DAILY@0800 [facility] Stop: 06/05/25 07:59 Last Admin: 06/05/24 09:42 Dose: 20 mg Trazodone HCl (Trazodone 100 Mg Tablet) 100 mg PO [facility] Stop: 06/04/25 19:59 Last Admin: 06/04/24 20:14 [...] where applicable. A&P - Nephrology Assessment/Plan (1) Jyyos-ht-kuxaxkv kidney injury: Assessment/Problem Details: She has LATANYA [...] signed by Sherin Arellano MD> 06/05/24 1042 [facility] Work Phone: 1(123) [phone] [place] [address] Physiatry (Rehab) Consult Note Signed Patient: Renuka Owen MR#: [id number] : 1950 Acct:[id number] Age/Sex: 73 / F Adm Date: 5 Loc: Room: [address] [place] [address] Type: ADM IN Attending Dr: Landon Whitfield [...] She was hoping to go to the [facility] in [place] but they did not have a bed available. She is now looking to possibly come to inpatient rehab. Review of Systems Review of Systems All other systems reviewed & are negative unless noted below or in HPI [facility] Medical History Chronic kidney disease Unsteady gait [...] of hysterectomy Hx of decompressive lumbar laminectomy 1979, 2021 History of total bilateral knee replacement [...] Calcium 8.7 Magnesium 1.7 L Assessment/Plan (1) Lylgr-gj-jcqyczm kidney injury: (2) Unsteady gait when walking: [...] chart, including current orders, allied health and building consultant notes, labs/imaging and performed butts elements of exam and I formulated the plan of care and facilitated the medical decision making. I completed a substantive portion of this encounter, the medical decision makingportion of this note in its entirety, including Allied health note review, nursing note review, building consultant note review,discussion with nursing and case management, and more than 50% of my time was spent on counseling and coordination of care, time spent 60 minutes Documented By: Jared Louis MD 929 Signed By: 06/05/24 1135 [facility]02-03-2025 [place] [address] Nephrology Progress Note Signed Patient: Renuka Owen MR#: [id number] : 1950 Acct:[id number] Age/Sex: 73 / F Adm Date: 5 Loc: Room: [address] [place] [address] Type: ADM IN Attending Dr: Landon Whitfield MD Copies to: ~ Date of Service: 06/05/2024 Subjective Subjective Narrative: This is a 73-year-old female with medical history of CKD, anemia, orthostatic hypotension, mitral regurgitation, HFrEF, HTN, cervical spondylosis was presented to the emergency room after mechanical fall. Patient was recently admitted at [facility] for LATANYA and was seen [...] Skin: No rashes , warm to touch RESEARCH COORDINATOR: Awake,Alert, following simple command Musculoskeletal: No swelling or limitation of movement of the large joints Psychiatric: Cooperative, normal mood and affect Objective Intake and Output I&O: Intake & Output 06/02/24 06/03/24 06/04/24 06/05/24 23:59 23:59 23:59 23:59 Intake Total 2099 / 2099 2200 / 2200 1200 / 1200 [...] 81 Mg Tablet.) 81 mg PO DAILY [facility] Stop: 06/02/25 08:59 Last Admin: 06/05/24 09:41 Dose: 81 mg Baclofen (Baclofen 20 Mg Tablet) 20 mg PO QPM [facility] Stop: 06/04/25 20:59 Last Admin: 06/04/24 20:14 Dose: 20 mg Carvedilol (Carvedilol 3.125 Mg Tablet) 3.125 mg PO BID.WITH.MEALS [facility] Stop: 06/04/25 16:59 Last Admin: 06/05/24 09:41 Dose: 3.125 mg Diphenhydramine HCl (Diphenhydramine 50 Mg/Ml Vial) 25 mg IV-PUSH QHS PRN PRN Reason: Insomnia refractory to baclofen/trazadone Stop: 06/04/25 21:59 Enoxaparin Sodium (Enoxaparin 30 Mg/0.3 Ml Syringe) 30 mg SUBCUT DAILY@10 [facility] Stop: 06/02/25 09:59 Last Admin: 06/05/24 09:42 Dose: 30 mg Fluticasone Propionate (Fluticasone Propionate Camden 120 Camden/16 Gm Bottle) 2 spray NARES-BOTH DAILY PRN PRN Reason: NASAL CONGESTION Stop: 06/02/25 08:59 Last Admin: 06/03/24 11:32 Dose: 2 spray Gabapentin (Gabapentin 600 Mg Tablet) 600 mg PO TID [facility] Stop: 06/03/25 13:59 Last Admin: 06/05/24 09:42 Dose: 600 mg Montelukast Sodium (Montelukast 10 Mg Tablet) 10 mg PO [facility] Stop: 06/01/25 21:59 Last Admin: 06/04/24 20:14 Dose: 10 mg Pantoprazole Sodium (Pantoprazole 40 Mg Tablet.) 40 mg PO BID.AC.BKFAST.SUPPER [facility] Stop: 06/02/25 07:29 Last Admin: 06/05/24 06:13 Dose: 40 mg Sodium Chloride (Sodium Chloride 0.9 % 10 Ml Syringe) 0 ml IV-PUSH PRN PRN PRN Reason: Flush Stop: 06/01/25 11:38 Last Admin: 06/01/24 12:07 Dose: 10 ml Torsemide (Torsemide 20 Mg Tablet) 20 mg PO DAILY@0800 [facility] Stop: 06/05/25 07:59 Last Admin: 06/05/24 09:42 Dose: 20 mg Trazodone HCl (Trazodone 100 Mg Tablet) 100 mg PO [facility] Stop: 06/04/25 19:59 Last Admin: 06/04/24 20:14 [...] where applicable. A&P - Nephrology Assessment/Plan (1) Dluae-ds-mdaknpp kidney injury: Assessment/Problem Details: She has LATANYA [...] MD 06/05/24 1041 Signed By: 06/05/24 1042 [facility]02-02-2025 Progress note Author Isaiah Mejia [facility] HospitalNote Date/TimeFebruary 2024 8:00pm [place] [address] Hospitalist Progress Note Signed Patient: Renuka Owen MR#: [id number] : 1950 Acct:[id number] Age/Sex: 73 / F Adm Date: 5 Loc: Room: 8C1458-8 Type: ADM IN Attending Dr: Isaiah Mejia [...] and she is agreeable and looking at penitentiary facilities at discharge. Medically she will be [...] 06/02/24 09:00 06/04/24 08:24 Aspirin 81 Mg Tablet.Dr PO 06/02/25 08:59 81 mg DAILY JUSTYN [...] spray 06/02/24 09:00 06/03/24 11:32 Fluticasone Propionate Camden 120 Camden/16 Gm Bottle NARES-BOTH 06/02/25 08:59 2 spray [...] 100 Mg Tablet PO 06/04/25 19:44 HS JUSTYN A&P - Hospitalist Assessment/Plan (1) Djook-xb-xgzyuqp kidney injury: (2) Contusion: (3) Generalized weakness: Plan . Documented By: Isaiah Mejia DO 06/04/24 19 52 Signed By: <Electronically signed by Isaiah Mejia DO> 06/04/241999 [facility] Work Phone: 1(539) 599-472102-02-2025 Progress note Author Isaiah Mejia [facility] HospitalNote Date/TimeFebruary 2024 7:52pm [place] [id number] Hospitalist Progress Note Signed Patient: Renuka Owen MR#: [id number] : 1950 Acct:[id number] Age/Sex: 73 / F Adm Date: 01/30/2 5 Loc: 3T Room: 7C2761-4 Type: ADM IN Attending Dr: Isaiah Mejia [...] mastectomy, and cholecystectomy who initially presented to [facility] on 06/01/24 for concerns regarding [...] Propionate 2 spray 06/02/24 09:00 Fluticasone Propionate Camden 120 Camden/16 Gm Bottle NARES-BOTH 06/02/25 08:59 DAILY PRN [...] JUSTYN Administration A&P - Hospitalist Assessment/Plan (1) Tupfj-vy-itdltum kidney injury: (2) Contusion: (3) Generalized weakness: Plan . <Statement entered by Isaiah Mejia DO - 06/04/24 19:52> I personally saw and examined patient at bedside today. Case was discussed and coordinated in conjunction with medical editor. I agree with management as noted therein. [...] <Electronically signed by MD AMBER Carver> 06/03/24 1034 [facility] Work Phone: 1(389) 512-143802-02-2025 History and physical note Author Isaiah Mejia [facility] HospitalNote Date/TimeFebruary 2024 7:50pm [place] [address] Hospitalist H&P Signed Patient: Renuka Owen MR#: [id number] : 1950 Acct:[id number] Age/Sex: 73 / F Adm Date: 5 Loc: Room: [address] [place] [address] Type: ADM IN Attending Dr: Isaiah Mejia [...] mastectomy, and cholecystectomy who initially presented to [facility] on 06/01/24 for concerns regarding [...] negative unless noted below or in HPI [facility] Medical History Chronic kidney disease Unsteady gait [...] in left upper extremity Presacral mass Excision 2020 Arthritis Low back pain Osteoporosis Breast cancer [...] % (Auto) 10.3 % (.) 06/01/24 12:05 Bullock % (Auto) 7.2 % (.) 06/01/24 12:05 Eos % (Auto) 2.3 % (.) 06/01/24 12:05 Baso % (Auto) 0.5 % (.) 06/01/24 12:05 Nucleat RBC Rel Count 0.1 /100 WBC (0-0.5) 06/01/24 12:05 Neut # (Auto) 7.5 x10E3/uL (1.8-7.7) 06/01/24 12:05 Lymph # (Auto) 1.0 x10E3/uL (1.00-4.8) 06/01/24 12:05 Bullock # (Auto) 0.7 x10E3/uL (0.0-0.8) 06/01/24 12:05 [...] 06/01/24 12:05 Assessment & Plan Assessment/Plan (1) Sespd-wu-vdbhinz kidney injury: (2) Contusion: (3) Generalized weakness: [...] evening. Case was discussed coordinated conjunction with medical editor. I agree with management as noted therein. [...] <Electronically signed by MD AMBER Carver> 06/01/[address] [place] [address] Work Phone: 1(791) 188-996502-02-2025 [place] [address] Hospitalist Progress Note Signed Patient: Renuka Owen MR#: [id number] : 1950 Acct:[id number] Age/Sex: 73 / F Adm Date: 5 Loc: Room: [address] [place] [address] Type: ADM IN Attending Dr: Isaiah Mejia [...] and she is agreeable and looking at penitentiary facilities at discharge. Medically she will be [...] 06/02/24 09:00 06/04/24 08:24 Aspirin 81 Mg Tablet.Dr PO 06/02/25 08:59 81 mg DAILY JUSTYN [...] spray 06/02/24 09:00 06/03/24 11:32 Fluticasone Propionate Camden 120 Camden/16 Gm Bottle NARES-BOTH 06/02/25 08:59 2 spray [...] 100 Mg Tablet PO 06/04/25 19:44 HS JUSTYN A&P - Hospitalist Assessment/Plan (1) Rmbaz-ws-eciyerc kidney injury: (2) Contusion: (3) Generalized weakness: Plan . Documented By: Isaiah Mejia DO 06/04/24 19 52 Signed By: 06/04/[address] [place], [place] 6183202-02-2025 [place] [address] Hospitalist Progress Note Signed Patient: Renuka Owen MR#: [id number] : 1950 Acct:[id number] Age/Sex: 73 / F Adm Date: 5 Loc: Room: [address] [place] [address] Type: ADM IN Attending Dr: Isaiah Mejia [...] mastectomy, and cholecystectomy who initially presented to [facility] on 06/01/24 for concerns regarding [...] Propionate 2 spray 06/02/24 09:00 Fluticasone Propionate Camden 120 Camden/16 Gm Bottle NARES-BOTH 06/02/25 08:59 DAILY PRN [...] JUSTYN Administration A&P - Hospitalist Assessment/Plan (1) Tzrys-py-jlsdxfw kidney injury: (2) Contusion: (3) Generalized weakness: Plan . I personally saw and examined patient at bedside today. Case was discussed and coordinated in conjunction with medical editor. I agree with management as noted therein. Nephrology will be consulted to assist in hypertensive and diuretic management. Maintain IV fluid hydration and resume medications gradually as tolerated as undoubtedly has need for GDMT for reduced ejection fraction heart failure will have some diuretic needed at baseline to be titrated gradually. Documented By: Isaiah Mejia DO 06/03/2402 27 Signed By: 06/04/24195106/03/24 1034 [facility]02-02-2025 [place] [address] Hospitalist H&P Signed Patient: Renuka Owen MR#: [id number] : 1950 Acct:[id number] Age/Sex: 73 / F Adm Date: 5 Loc: Room: [address] [place] [address] Type: ADM IN Attending Dr: Isaiah Mejia [...] mastectomy, and cholecystectomy who initially presented to [facility] on 06/01/24 for concerns regarding [...] negative unless noted below or in HPI [facility] Medical History Chronic kidney disease Unsteady gait [...] % (Auto) 10.3 % (.) 06/01/24 12:05 Bullock % (Auto) 7.2 % (.) 06/01/24 12:05 Eos % (Auto) 2.3 % (.) 06/01/24 12:05 Baso % (Auto) 0.5 % (.) 06/01/24 12:05 Nucleat RBC Rel Count 0.1 /100 WBC (0-0.5) 06/01/24 12:05 Neut # (Auto) 7.5 x10E3/uL (1.8-7.7) 06/01/24 12:05 Lymph # (Auto) 1.0 x10E3/uL (1.00-4.8) 06/01/24 12:05 Bullock # (Auto) 0.7 x10E3/uL (0.0-0.8) 06/01/24 12:05 [...] 06/01/24 12:05 Assessment & Plan Assessment/Plan (1) Iladw-gj-svcxjdt kidney injury: (2) Contusion: (3) Generalized weakness: [...] evening. Case was discussed coordinated conjunction with medical editor. I agree with management as noted therein. [...] Mejia DO 06/01/24 14 39 Signed By: 06/04/24 1951 06/01/24 6175 [facility]02-02-2025 Progress note Author Sherin Arellano [facility] HospitalNote Date/TimeFebruary 2024 11:36am [place] [address] Nephrology Progress Note Signed Patient: Renuka Oewn MR#: [id number] : 1950 Acct:[id number] Age/Sex: 73 / F Adm Date: Loc: Room: [address] [place] [address] Type: ADM IN Attending Dr: Isiaah Mejia DO Copies to: ~ Date of Service: 06/04/2024 Subjective Subjective Narrative: This is a 73-year-old female with medical history of CKD, anemia, orthostatic hypotension, mitral regurgitation, HFrEF, HTN, cervical spondylosis was presented to the emergency room after mechanical fall. Patient was recently admitted at [facility] for LATANYA and was seen [...] Skin: No rashes , warm to touch RESEARCH COORDINATOR: Awake,Alert, following simple command Musculoskeletal: No swelling or limitation of movement of the large joints Psychiatric: Cooperative, normal mood and affect Objective Intake and Output I&O: Intake & Output 06/01/24 06/02/24 06/03/24 06/04/24 23:59 23:59 23:59 23:59 Intake Total 400 / 400 2099 / 2100 2200 / 2200 200 / 200 Balance 400 / 400 2099 / 2099 2200 / 2200 200 / 200 Weight 70.5 kg 70.5 kg 70.3 kg Meds and Allergies Meds: Active Medications Acetaminophen (Acetaminophen 500 Mg Tablet) 500 mg PO Q4H PRN PRN Reason: Pain Stop: 06/01/25 17:07 Last Admin: 06/04/24 08:24 Dose: 500 mg Aspirin (Aspirin 81 Mg Tablet.Dr) 81 mg PO DAILY [facility] Stop: 06/02/25 08:59 Last Admin: 06/04/24 08:24 Dose: 81 mg Baclofen (Baclofen 20 Mg Tablet) 20 mg PO QHS [facility] Stop: 06/03/25 21:59 Last Admin: 06/03/24 21:23 Dose: 20 mg Carvedilol (Carvedilol 6.25 Mg Tablet) 6.25 mg PO BID.WITH.MEALS [facility] Stop: 06/04/25 10:59 Last Admin: 06/04/24 11:23 Dose: 6.25 mg Enoxaparin Sodium (Enoxaparin 30 Mg/0.3 Ml Syringe) 30 mg SUBCUT DAILY@10 [facility] Stop: 06/02/25 09:59 Last Admin: 06/04/24 09:50 Dose: Not Given Fluticasone Propionate (Fluticasone Propionate Camden 120 Camden/16 Gm Bottle) 2 spray NARES-BOTH DAILY PRN PRN Reason: NASAL CONGESTION Stop: 06/02/25 08:59 Last Admin: 06/03/24 11:32 Dose: 2 spray Gabapentin (Gabapentin 600 Mg Tablet) 600 mg PO TID [facility] Stop: 06/03/25 13:59 Last Admin: 06/04/24 08:24 Dose: 600 mg Melatonin (Melatonin 5 Mg Tablet) 10 mg PO QHS PRN PRN Reason: Sleep Stop: 06/01/25 18:00 Last Admin: 06/03/24 20:52 Dose: 10 mg Montelukast Sodium (Montelukast 10 Mg Tablet) 10 mg PO HS [facility] Stop: 06/01/25 21:59 Last Admin: 06/03/24 20:52 Dose: 10 mg Pantoprazole Sodium (Pantoprazole 40 Mg Tablet.) 40 mg PO BID.AC.BKFAST.SUPPER [facility] Stop: 06/02/25 07:29 Last Admin: 06/04/24 05:32 [...] where applicable. A&P - Nephrology Assessment/Plan (1) Wsbig-kf-izczikj kidney injury: Assessment/Problem Details: She has LATANYA [...] signed by Sherin Arellano MD> 06/04/24 1136 [facility] Work Phone: 1(897) 449-976502-02-2025 [place] [address] Nephrology Progress Note Signed Patient: Renuka Owen MR#: [id number] : 1950 Acct:[id number] Age/Sex: 73 / F Adm Date: 5 Loc: Room: [address] [place] [address] Type: ADM IN Attending Dr: Isaiah Mejia DO Copies to: ~ Date of Service: 06/04/2024 Subjective Subjective Narrative: This is a 73-year-old female with medical history of CKD, anemia, orthostatic hypotension, mitral regurgitation, HFrEF, HTN, cervical spondylosis was presented to the emergency room after mechanical fall. Patient was recently admitted at [facility] for LATANYA and was seen [...] Skin: No rashes , warm to touch RESEARCH COORDINATOR: Awake,Alert, following simple command Musculoskeletal: No swelling [...] 81 Mg Tablet.) 81 mg PO DAILY [facility] Stop: 06/02/25 08:59 Last Admin: 06/04/24 08:24 Dose: 81 mg Baclofen (Baclofen 20 Mg Tablet) 20 mg PO QHS [facility] Stop: 06/03/25 21:59 Last Admin: 06/03/24 21:23 Dose: 20 mg Carvedilol (Carvedilol 6.25 Mg Tablet) 6.25 mg PO BID.WITH.MEALS [facility] Stop: 06/04/25 10:59 Last Admin: 06/04/24 11:23 Dose: 6.25 mg Enoxaparin Sodium (Enoxaparin 30 Mg/0.3 Ml Syringe) 30 mg SUBCUT DAILY@10 [facility] Stop: 06/02/25 09:59 Last Admin: 06/04/24 09:50 Dose: Not Given Fluticasone Propionate (Fluticasone Propionate Camden 120 Camden/16 Gm Bottle) 2 spray NARES-BOTH DAILY PRN PRN Reason: NASAL CONGESTION Stop: 06/02/25 08:59 Last Admin: 06/03/24 11:32 Dose: 2 spray Gabapentin (Gabapentin 600 Mg Tablet) 600 mg PO TID [facility] Stop: 06/03/25 13:59 Last Admin: 06/04/24 08:24 Dose: 600 mg Melatonin (Melatonin 5 Mg Tablet) 10 mg PO QHS PRN PRN Reason: Sleep Stop: 06/01/25 18:00 Last Admin: 06/03/24 20:52 Dose: 10 mg Montelukast Sodium (Montelukast 10 Mg Tablet) 10 mg PO HS [facility] Stop: 06/01/25 21:59 Last Admin: 06/03/24 20:52 Dose: 10 mg Pantoprazole Sodium (Pantoprazole 40 Mg Tablet.) 40 mg PO BID.AC.BKFAST.SUPPER [facility] Stop: 06/02/25 07:29 Last Admin: 06/04/24 05:32 Dose: 40 mg Sodium Chloride (Sodium Chloride 0.9 % 10 Ml Syringe) 0 ml IV-PUSH PRN PRN PRN Reason: Flush Stop: 06/01/25 11:38 Last Admin: 06/01/24 12:07 Dose: 10 ml Trazodone HCl (Trazodone 50 Mg Tablet) 50 mg PO [facility] Stop: 06/01/25 21:59 Last Admin: 06/03/24 20:52 [...] where applicable. A&P - Nephrology Assessment/Plan (1) Semok-nv-ccisdow kidney injury: Assessment/Problem Details: She has LATANYA [...] output * Documented By: Sherin Arellano MD 06/04/241130 Signed By: 06/04/24 1136 [facility]02-01-2025 Consult note Author Sherin Arellano [facility] HospitalNote Date/TimeFebruary 2024 10:33am [place] [address] Nephrology Consult Note Signed Patient: Renuka Owen MR#: [id number] : 1950 Acct:[id number] Age/Sex: 73 / F Adm Date: 5 Loc: Room: [address] [place] [address] Type: ADM IN Attending Dr: Isaiah Mejia [...] mechanical fall. Patient was recently admitted at [facility] for LATANYA and was seen [...] polydipsia Dermatological: denies any itching or rash [facility] Medical History Chronic kidney disease Unsteady gait [...] Dose: 30 mg Fluticasone Propionate (Fluticasone Propionate Camden 120 Camden/16 Gm Bottle) 2 spray NARES-BOTH DAILY PRN [...] 10 Mg Tablet) 10 mg PO HS [facility] Stop: 06/01/25 21:59 Last Admin: 06/02/24 20:42 Dose: 10 mg Pantoprazole Sodium (Pantoprazole 40 Mg Tablet.) 40 mg PO BID.AC.BKFAST.SUPPER [facility] Stop: 06/02/25 07:29 Last Admin: 06/03/24 05:19 Dose: 40 mg Sodium Chloride (Sodium Chloride 0.9 % 10 Ml Syringe) 0 ml IV-PUSH PRN PRN PRN Reason: Flush Stop: 06/01/25 11:38 Last Admin: 06/01/24 12:07 Dose: 10 ml Trazodone HCl (Trazodone 50 Mg Tablet) 50 mg PO [facility] Stop: 06/01/25 21:59 Last Admin: 06/02/24 20:42 [...] Skin: No rashes , warm to touch RESEARCH COORDINATOR: Awake,Alert, following simple command Musculoskeletal: No swelling [...] where applicable. A&P - Nephrology Assessment/Plan (1) Dizpl-oq-zbpbvwf kidney injury: Assessment/Problem Details: She has LATANYA [...] <Electronically signed by Sherin Arellano MD> 06/03/24 [facility] Work Phone: 1(994) 992-611302-01-2025 Radiology Diagnostic study [facility] [place] [address] [place] [address] Ultrasound Report Signed Patient: Renuka Owen MR#: [id number] : 1950 Acct:[id number] Age/Sex: 73 / F ADM Date: 5 Loc: Room: [address] [place] [address] Type: ADM IN Attending Dr: Isaiah Mejia [...] findings. Impression dictated by: Saman Vo Jr., D.O.06/03/2024 11:19 AM Dictation Location: [facility]-18 Tech: Cristiana Torrez Transcribed By: BJORN 06/03/241118 Dictated By: Saman Vo Jr, DO 06/03/24 111 Signed By: 06/03/24 1119 [facility]02-01-2025 [place] [address] Nephrology Consult Note Signed Patient: Renuka Owen MR#: [id number] : 1950 Acct:[id number] Age/Sex: 73 / F Adm Date: 5 Loc: Room: [address] [place] [address] Type: ADM IN Attending Dr: Isaiah Mejia [...] mechanical fall. Patient was recently admitted at [facility] for LATANYA and was seen [...] polydipsia Dermatological: denies any itching or rash [facility] Medical History Chronic kidney disease Unsteady gait [...] 81 Mg Tablet.) 81 mg PO DAILY [facility] Stop: 06/02/25 08:59 Last Admin: 06/03/24 08:08 Dose: 81 mg Enoxaparin Sodium (Enoxaparin 30 Mg/0.3 Ml Syringe) 30 mg SUBCUT DAILY@10 [facility] Stop: 06/02/25 09:59 Last Admin: 06/03/24 08:08 Dose: 30 mg Fluticasone Propionate (Fluticasone Propionate Camden 120 Camden/16 Gm Bottle) 2 spray NARES-BOTH DAILY PRN PRN Reason: NASAL CONGESTION Stop: 06/02/25 08:59 Sodium Chloride (0.9% Sodium Chloride 1,000 Ml) 1,000 mls @ 100 mls/hr IV .Q10H [facility] Stop: 06/01/25 13:44 Last Admin: 06/03/24 08:08 Dose: 100 mls/hr Melatonin (Melatonin 5 Mg Tablet) 10 mg PO QHS PRN PRN Reason: Sleep Stop: 06/01/25 18:00 Last Admin: 06/02/24 20:42 Dose: 10 mg Montelukast Sodium (Montelukast 10 Mg Tablet) 10 mg PO [facility] Stop: 06/01/25 21:59 Last Admin: 06/02/24 20:42 Dose: 10 mg Pantoprazole Sodium (Pantoprazole 40 Mg Tablet.) 40 mg PO BID.AC.BKFAST.SUPPER [facility] Stop: 06/02/25 07:29 Last Admin: 06/03/24 05:19 Dose: 40 mg Sodium Chloride (Sodium Chloride 0.9 % 10 Ml Syringe) 0 ml IV-PUSH PRN PRN PRN Reason: Flush Stop: 06/01/25 11:38 Last Admin: 06/01/24 12:07 Dose: 10 ml Trazodone HCl (Trazodone 50 Mg Tablet) 50 mg PO [facility] Stop: 06/01/25 21:59 Last Admin: 06/02/24 20:42 [...] Skin: No rashes , warm to touch RESEARCH COORDINATOR: Awake,Alert, following simple command Musculoskeletal: No swelling [...] where applicable. A&P - Nephrology Assessment/Plan (1) Grqej-qk-mtoeant kidney injury: Assessment/Problem Details: She has LATANYA [...] MD 06/03/24 0837 Signed By: 06/03/24 1033 [facility]01-31-2025 Progress note Author Isaiah Mejia [facility] HospitalNote Date/TimeJanuary 2024 9:33pm [place] [address] Hospitalist Progress Note Signed Patient: Renuka Owen MR#: [id number] : 1950 Acct:[id number] Age/Sex: 73 / F Adm Date: 5 Loc: 3T Room: 6E4342-5 Type: ADM IN Attending Dr: Isaiah Mejia [...] mastectomy, and cholecystectomy who initially presented to [facility] on 06/01/24 for concerns regarding a fall and LATANYA. Patient was seen and examined at bedside today. She states that she is feeling better and denies any new concerns today. She has been eating well although shehas had some difficulty sleeping due [facility] noise. She denies any headache, dizziness, [...] Propionate 2 spray 06/02/24 09:00 Fluticasone Propionate Camden 120 Camden/16 Gm Bottle NARES-BOTH 06/02/25 08:59 DAILY PRN [...] JUSTYN Administration A&P - Hospitalist Assessment/Plan (1) Pjskg-xt-llxrfue kidney injury: (2) Contusion: (3) Generalized weakness: Plan . <Statement entered by Isaiah Mejia DO - 06/02/24 21:33> I personally saw and examined the patient at the bedside this evening. Case wasdiscussed and coordinated in conjunction with medical editor and I agree with management as noted [...] 10 32 Signed By: <Electronically signed by sIaiah Mejia DO> 06/02/24 2133 <Electronically signed by MD AMBER Carver> 06/02/[address] [place] [address] Work Phone: 1(701) 108-981601-31-2025 [place] [address] Hospitalist Progress Note Signed Patient: Renuka Owen MR#: [id number] : 1950 Acct:[id number] Age/Sex: 73 / F Adm Date: 5 Loc: Room: [address] [place] [address] Type: ADM IN Attending Dr: Isaiah Mejia [...] mastectomy, and cholecystectomy who initially presented to [facility] on 06/01/24 for concerns regarding a fall and LATANYA. Patient was seen and examined at bedside today. She states that she is feeling better and denies any new concerns today. She has been eating well although shehas had some difficulty sleeping due [facility] noise. She denies any headache, dizziness, [...] Propionate 2 spray 06/02/24 09:00 Fluticasone Propionate Camden 120 Camden/16 Gm Bottle NARES-BOTH 06/02/25 08:59 DAILY PRN [...] JUSTYN Administration A&P - Hospitalist Assessment/Plan (1) Leieu-lv-woslbtb kidney injury: (2) Contusion: (3) Generalized weakness: Plan . I personally saw and examined the patient at the bedside this evening. Case wasdiscussed and coordinated in conjunction with medical editor and I agree with management as noted [...] Mejia DO 06/02/24 10 32 Signed By: 06/02/24213206/02/24 1037 [facility]01-30-2025 Radiology Diagnostic study note [facility] [place] [address] [place] [address] CT Scan Report Signed Patient: Renuka Owen MR#: [id number] : 1950 Acct:[id number] Age/Sex: 73 / F ADM Date: 5 Loc: ER Room: Type: [facility] ER Attending Dr: Copies to: Regina Garcia [...] Vo Jr., D.O.06/01/2024 1:14 PM Dictation Location: [place] [address] Transcribed By: [facility] 06/01/24 1314 Dictated By: Saman Vo Jr, DO 06/01/24 1313 Signed By: 06/01/24 1314 [facility]01-27-2025 History of Present illness Narrative [...] laser capsulotomy, they are to notify their optical goods worker promptly if they have a significant change [...] times during the day. documented in this encounterSt. Lukes Des Peres [id number] History of Present illness Narrative* Marce Khan, DPM - 05/16/2024 2:30 PM EST Images from the original note were not included. Subjective Patient ID: Renuka Owen is a 73 y.o. female who presents for Nail care ( Renuka Owen is a 73 y.o. female who presents for Nail Care.Patient relates she has been letting her nails grow longer so she could slovak them. Last visit 12/2022.). HPI This is [...] Medical History: Diagnosis Date Arthritis Breast cancer ([facility]) 2012 Cataract Cholelithiasis 1991 Chronic nonseasonal allergic rhinitis due to pollen Chronic tension headaches Dehydration GERD with esophagitis Glaucoma ([facility]) HTN (hypertension) ([facility]) Lumbar spondylosis Migraine ([facility]) Pain management 10/2015 Injections in lower back [...] LUMBAR FUSION 04/01/2022 L4-L5 MASTECTOMY Left 2011 [place] ARTHROSCOPY KNEE DIAGNOSTIC W/WO SYNOVIAL BX SPX 1994 [place] ARTHROSCOPY KNEE DIAGNOSTIC W/WO SYNOVIAL BX SPX Right 1985 DR. Driver ROTATOR CUFF REPAIR Left 08/02/2017 Dr. Hankins TONSILLECTOMY TUMOR EXCISION 06/19/2020 presacral tumor removed Family History Family History Problem Relation Name Age of Onset Breast cancer Mother Alejandra Redganga Glaucoma Mother Alejandra Wu Cancer Mother Alejandra [...] utilizing a nail nipper and electric bur turbinated bone grinder without incident. Patient noted relief of [...] understanding. Marce Khan DPM documented in this encounterSt. Lukes Des Peres [id number] Evaluation note* Diagnosis Onset Date Resolution Status [...] 1:43pmUnsteady gait when walkingacute June 01, 2024 1:33npMlmbg-pm-qzqglqm kidney injuryresolvedJanuary 2024 1:43pmHypokalemiaresolvedJanuary 2024 1:43pmGeneralized weakness deletedJanuary 2024 1:43pmHistory of total left knee replacementacute June 29, 2024 9:30amPes anserinus bursitis of left kneeacuteFebruary 2024 9:30amAnemiaacuteRegency Hospital [facility] 2024 1:18pmCervical spondylosis with radiculopathyacuteMarch 2024 1:18pmChronic HFrEF (heart failure with reduced ejection fraction)acuteReg[facility] 2024 1:18pmChronic kidney diseaseacute July 03, 2024 1:18pmChronic venous insufficiency of lower extremityacuteReg[facility] 2024 1:18pmHypertensionacuteUniversity Hospitalch 2024 1:18pmLumbar stenosis without neurogenic claudicationacuteUniversity Hospitalch 2024 1:18pmLeft knee painnoneactiveRegency Hospital [facility] 2024 1:18pm [facility] Work Phone: 1(182) 321-328401-10-2025 Evaluation note* Diagnosis Onset Date Resolution Status [...] 1:43pmUnsteady gait when walkingacute June 01, 2024 1:90mkZilkk-wr-pqvzvfx kidney injuryresolvedJanuary 2024 1:43pmHypokalemiaresolvedJanuary 2024 1:43pmGeneralized weakness deletedJanuary 2024 1:43pmHistory of total left knee replacementacute June 29, 2024 9:30amPes anserinus bursitis of left kneeacuteFebruary 2024 9:30amAnemiaacuteUniversity Hospitalch 2024 1:18pmCervical spondylosis with radiculopathyacuteUniversity Hospitalch 2024 1:18pmChronic HFrEF (heart failure with reduced ejection fraction)[facility] 2024 1:18pmChronic kidney diseaseacute July 03, 2024 1:18pmChronic venous insufficiency of lower extremityacuteReg[facility] 2024 1:18pmHypertensionacuteMarch 2024 1:18pmLumbar stenosis without neurogenic claudicationacuteMarch 2024 1:18pmLeft knee painnoneactiveMarch 2024 1:18pmHistory of total left knee replacementacuteMar 2024 11:07amPes anserinus bursitis of left kneeacuteMarch 2024 11:07am [facility] Work Phone: 1(272) 965-205801-02-2025 History of Present illness Narrative* Bryce Hendrickson [...] content normal. Judgment: Judgment normal. Allergies Penicillins, Zagwtvr-fcw-fbx reductase inhibitors, and Atorvastatin Current Medications Current [...] Scribe Attestation By signing my name below, I, Ofe Marrufo LPN attest that this documentation has been prepared [...] exam, discussion and plan. documented in this encounterMer[facility] Work Phone: 1(878) 225-170201-02-2025 Instructions* Patient Instructions* Viji Denson LPN - [...] through Care Everywhere. * Heart Healthy Diet (Irish) documented in this [facility] Work Phone: 1(151) 271-786512-03-2024 Evaluation note* Diagnosis Onset Date Resolution Status Admit Date Cervical spondylosis with radiculopathy acuteDecemb2023 2:12pmChemotherapy-induced peripheral neuropathyacute April 04, 2024 2:12pmOccipital headacheacuteDece2023 2:12pm Unsteadiness on feetacuteApril 04, 2024 2:12pmImpaired mobility and activities of daily livingdeletedApril 04, 2024 2:12pmSinusitisdeleted April 04, 2024 2:12pmGeneralized weaknessacuteApril 07, 2024 4:45pmAcute kidney injuryresolvedcemb2023 4:45pmDiarrhearesolvedDecember 2023 4:45pmFallresolvedDecember 2023 4:45pmAnemiaacutecember 2023 2:39pmCervical spondylosis with radiculopathyacuteDece2023 2:39pm Chronic HFrEF (heart failure with reduced ejection fraction)acuteApril 12, 2024 2:39pmChronic venous insufficiency of lower extremityacuteApril 12, 2024 2:39pmHypertensionacutecemb2023 2:39pmLumbar stenosis without neurogenic claudicationacutecember 2023 2:39pmMitral regurgitationacute April 12, 2024 2:39pmOccipital headacheacutecemb2023 2:39pm Orthostatic hypotensionacuteApril 12, 2024 2:39pmAnemiaacuteJanuary 2024 1:44pmCervical spondylosis with radiculopathyacuteJanuary 2024 1:44pm Chronic HFrEF (heart failure with reduced ejection fraction)acuteJanuary 2024 1:44pmChronic kidney diseaseacuteMay 12, 2024 1:44pmChronic venous insufficiency of lower extremityacuteMay 12, 2024 1:44pmHypertensionacute May 12, 2024 1:44pmLumbar stenosis without neurogenic claudicationacute May 12, 2024 1:44pmUnsteady gait when walkingacuteMay 12, 2024 1:44pm [facility] Work Phone: 1(131) 195-429512-03-2024 Evaluation note* Diagnosis Onset Date Resolution Status Admit Date Cervical spondylosis with radiculopathy acuteApril 04, 2024 2:12pmChemotherapy-induced peripheral neuropathyacute April 04, 2024 2:12pmOccipital headacheacutece2023 2:12pm Unsteadiness on feetacuteApril 04, 2024 2:12pmImpaired mobility and activities of daily livingdel2023 2:12pmSinusitisdeleted April 04, 2024 2:12pmGeneralized weaknessacutece2023 4:45pmAcute kidney injuryresolvedce2023 4:45pmDiarrhearesolvedDecember 2023 4:45pmFallresolvedDecember 2023 4:45pmAnemiaacutece2023 2:39pmCervical spondylosis with radiculopathyacuteDece2023 2:39pm Chronic HFrEF (heart failure with reduced ejection fraction)acuteApril 12, 2024 2:39pmChronic venous insufficiency of lower extremityacutece2023 2:39pmHypertensionacuteDecember 2023 2:39pmLumbar stenosis without neurogenic claudicationacuteApril 12, 2024 2:39pmMitral regurgitationacute April 12, 2024 2:39pmOccipital headacheacutecember 2023 2:39pm Orthostatic hypotensionacuteApril 12, 2024 2:39pmAnemiaacuteMay 12, 2024 1:44pmCervical spondylosis with radiculopathyacuteMay 12, 2024 1:44pm Chronic HFrEF (heart failure with reduced ejection fraction)acuteJanuary 2024 1:44pmChronic kidney diseaseacuteJanuary 2024 1:44pmChronic venous insufficiency of lower extremityacuteMayuary 2024 1:44pmHypertensionacute May 12, 2024 1:44pmLumbar stenosis without neurogenic claudicationacute May 12, 2024 1:44pmUnsteady gait when walkingacuteMayuary 2024 1:77tlTgyid-pu-aliugqa kidney injuryacuteMayuary 2024 1:43pmAnemiaacute June 01, 2024 1:43pmChemotherapy-induced peripheral neuropathyacuteMayuary 2024 1:43pmChronic HFrEF (heart failure with reduced ejection fraction) acuteJanuary 2024 1:43pmChronic kidney diseaseacuteJanuary 2024 1:43pmContusionacuteMayuary 2024 1:43pmGeneralized weaknessacuteMayuary 2024 1:43pmHypertensionacuteMayuary 2024 1:43pmHypokalemiaacute June 01, 2024 1:43pmImpaired mobility and activities of daily livingacute June 01, 2024 1:43pmUnsteady gait when walkingacuteMayuary 2024 1:43pm [facility] Work Phone: 1(710) 557-269712-03-2024 Evaluation note* Diagnosis Onset Date Resolution Status Admit Date Cervical spondylosis with radiculopathy acuteDe2023 2:12pmChemotherapy-induced peripheral neuropathyacute April 04, 2024 2:12pmOccipital headacheacuteDece2023 2:12pm Unsteadiness on feetacutece2023 2:12pmImpaired mobility and activities of daily livingdeletedApril 04, 2024 2:12pmSinusitisdeleted April 04, 2024 2:12pmGeneralized weaknessacutece2023 4:45pmAcute kidney injuryresolvedDecember 2023 4:45pmDiarrhearesolvedDecember 2023 4:45pmFallresolvedDecember 2023 4:45pmAnemiaacuteDecember 2023 2:39pmCervical spondylosis with radiculopathyacuteDeceer 2023 2:39pm Chronic HFrEF (heart failure with reduced ejection fraction)acuteDemb2023 2:39pmChronic venous insufficiency of lower extremityacutecember 2023 2:39pmHypertensionacutember 2023 2:39pmLumbar stenosis without neurogenic claudicationacuteDecember 2023 [...] 12, 2024 1:44pmUnsteady gait when walkingacuteMayuary 2024 1:74udFueqk-yx-jctayrt kidney injuryacuteJanuary 2024 1:43pmAnemiaacute June 01, 2024 1:43pmChemotherapy-induced peripheral neuropathyacuteMayuary 2024 1:43pmChronic HFrEF (heart failure with reduced ejection fraction) acuteJanuary 2024 1:43pmChronic kidney diseaseacuteJanuary 2024 1:43pmContusionacuteJanuary 2024 1:43pmGeneralized weaknessacuteMayuary 2024 1:43pmHypertensionacuteJanuary 2024 1:43pmImpaired mobility and activities of daily livingacuteMayuary 2024 1:43pmUnsteady gait when walkingacuteJanuary 2024 1:43pmHypokalemiaresolvedMayuary 2024 1:43pmHistory of total left knee replacementacuteFebruary 2024 9:30am [facility] Work Phone: 1(181) 619-576812-03-2024 Evaluation note* Diagnosis Onset Date Resolution Status Admit Date Cervical spondylosis with radiculopathy acuteDecember 2023 2:12pmChemotherapy-induced peripheral neuropathyacute April 04, 2024 2:12pmOccipital headacheacuteDecember 2023 2:12pm Unsteadiness on feetacuteDecember 2023 2:12pmImpaired mobility and activities of daily livingdeletedceer 2023 2:12pmSinusitisdeleted April 04, 2024 2:12pmGeneralized weaknessacuteDecember [...] 12, 2024 1:44pmUnsteady gait when walkingacuteMayuary 2024 1:12xhHeqah-at-ukghhvd kidney injuryacuteMayuary 2024 1:43pmAnemiaacute June 01, 2024 1:43pmChemotherapy-induced peripheral neuropathyacuteMayuary 2024 1:43pmChronic HFrEF (heart failure with reduced ejection fraction) acuteMayuary 2024 1:43pmChronic kidney diseaseacuteMayuary 2024 1:43pmContusionacuteMayuary 2024 1:43pmGeneralized weaknessacuteMayuary 2024 1:43pmHypertensionacuteMayuary 2024 1:43pmImpaired mobility and activities of daily livingacuteMayuary 2024 1:43pmUnsteady gait when walkingacuteMayuary 2024 1:43pmHypokalemiaresolvedMayuary 2024 1:43pmHistory of total left knee replacementacuteFebruary 2024 9:30amPes anserinus bursitis of left kneeacuteFebruary 2024 9:30am [facility] Work Phone: 1(995) 958-440512-03-2024 Evaluation note* Diagnosis Onset Date Resolution Status Admit Date Cervical spondylosis with radiculopathy acuteDe2023 2:12pmChemotherapy-induced peripheral neuropathyacute April 04, 2024 2:12pmOccipital headacheacuteDecember 2023 2:12pm Unsteadiness on feetacutece2023 2:12pmImpaired mobility and activities of daily livingdeletedce2023 2:12pmSinusitisdeleted April 04, 2024 2:12pmGeneralized weaknessacutecember 2023 4:45pmAcute kidney injuryresolvedDecember 2023 4:45pmDiarrhearesolvedDecember 2023 4:45pmFallresolvedDecember 2023 4:45pmAnemiaacuteDecember 2023 2:39pmCervical spondylosis with radiculopathyacuteDecember 2023 2:39pm Chronic HFrEF (heart failure with reduced ejection fraction)acuteDember 2023 2:39pmChronic venous insufficiency of lower extremityacutecember 2023 2:39pmHypertensionacutecember 2023 2:39pmLumbar stenosis without neurogenic claudicationacuteDecember 2023 2:39pmMitral regurgitationacute April 12, 2024 2:39pmOccipital headacheacutember 2023 2:39pm Orthostatic hypotensionacutember 2023 2:39pmAnemiaacuteJanuary 2024 1:44pmCervical spondylosis with radiculopathyacuteMayuary 2024 1:44pm Chronic HFrEF (heart failure with reduced ejection fraction)acuteJanuary 2024 1:44pmChronic kidney diseaseacuteJanuary 2024 1:44pmChronic venous insufficiency of lower extremityacuteMayuary 2024 1:44pmHypertensionacute May 12, 2024 1:44pmLumbar stenosis without neurogenic claudicationacute May 12, 2024 1:44pmUnsteady gait when walkingacuteMayuary 2024 1:56clMqigu-az-karulue kidney injuryacuteMayuary 2024 1:43pmAnemiaacute June 01, 2024 [...] with reduced ejection fraction)acuteMarch 2024 1:18pmChronic kidney diseaseacuteJuly 03, 2024 1:18pmChronic venous insufficiency of lower extremityacuteJulch 2024 1:18pmHypertensionacute March 2024 1:18pmLumbar stenosis without neurogenic claudicationacuteJulch 2024 1:18pm [facility] Work Phone: 1(909) 311-234011-26-2024 History of Present illness Narrative* Chuck Cope [...] LUMBAR FUSION 04/01/2022 L4-L5 MASTECTOMY Left 2011 [place] ARTHROSCOPY KNEE DIAGNOSTIC W/WO SYNOVIAL BX SPX 1994 [place] ARTHROSCOPY KNEE DIAGNOSTIC W/WO SYNOVIAL BX SPX [...] and plan surgical tx. documented in this [facility]11-26-2024 Miscellaneous Notes* Addendum Note - Michelle Abarca - 03/28/2024 9:00 AM ESTAddended by: MICHELLE ABARCA on: 03/28/2024 01:21 PM Modules accepted: Orders documented in this [facility]11-26-2024 Note* Addendum Note - Michelle Abarca - 03/28/2024 9:00 AM ESTAddended by: MICHELLE ABARCA on: 03/28/2024 01:21 PM Modules accepted: Orders [facility] Work Phone: 1([phone]) 696-436511-26-2024 Note* Addendum Note - Michelle Abarca - 03/28/2024 9:00 AM ESTAddended by: MICHELLE ABARCA on: 03/28/2024 01:21 PM Modules accepted: Orders [facility] Work Phone: 1(102) 645-933611-06-2024 History of Present illness Narrative* Chuck Cope [...] cancer Mother Alejandra Redganga Glaucoma Mother Alejandra Wu Cancer Mother Alejandra Wu Hearing loss Mother Alejandra Wu Testicular cancer Father Gadiel Pink Cancer Father Gadiel Pink Leukemia Brother Active Ambulatory Problems Diagnosis Date Noted Primary open angle glaucoma (POAG) of both eyes, mild stage ([facility]) 02/26/2023 PCO (posterior capsular opacification), bilateral 02/26/2023 Keratoconjunctivitis sicca of both eyes not specified as Sjogren's 06/09/2023 Resolved Ambulatory Problems Diagnosis Date Noted Dry eyes 02/26/2023 Past Medical History: Diagnosis Date Arthritis Breast cancer ([facility]) 2012 Cataract Cholelithiasis 1991 Chronic nonseasonal allergic rhinitis due to pollen Chronic tension headaches Dehydration GERD with esophagitis Glaucoma ([facility]) HTN (hypertension) ([facility]) Lumbar spondylosis Migraine ([facility]) Pain management 10/2015 Past Surgical History: Procedure Laterality Date BACK SURGERY 1982 BREAST RECONSTRUCTION 2011 Procedure:post mastectomy radiation planned;Disease:left breast cancer CATARACT EXTRACTION 10/2021 and 12/2021 CHOLECYSTECTOMY 1976 Cholelithiasis HYSTERECTOMY 1990 KNEE ARTHROPLASTY Left 01/2007 Dr. Miranda KNEE ARTHROPLASTY 01/2007 Dr. Miranda LUMBAR DISCECTOMY 10/08/2021 L4 Sx LUMBAR FUSION 04/01/2022 L4-L5 MASTECTOMY Left 2011 [place] ARTHROSCOPY KNEE DIAGNOSTIC W/WO SYNOVIAL BX SPX 1994 WV ARTHROSCOPY KNEE DIAGNOSTIC W/WO SYNOVIAL BX SPX [...] with the same regimen documented in this [facility]10-30-2024 Evaluation note* Diagnosis Onset Date Resolution Status Admit Date Chemotherapy-induced peripheral neuropat hy acuteOctober 2023 10:47amAllergic rhinitisdeletedOctober 2023 10:47amNasal polyp, posteriordeletedOctober 2023 10:47amTinnitus of both earsdeletedOctober 2023 10:47amCervical spondylosis with radiculopathy acuteceer 2023 2:12pmChemotherapy-induced peripheral neuropathyacute April 04, 2024 2:12pmOccipital headacheacuteDecember 2023 2:12pm Unsteadiness on feetacuteceer 2023 2:12pmImpaired mobility and activities of daily livingdeletedce2023 2:12pmSinusitisdeleted April 04, 2024 2:12pmGeneralized weaknessacutecember 2023 4:45pmAcute kidney injuryresolvedceer 2023 4:45pmDiarrhearesolvedDecember 2023 4:45pmFallresolvedDecember 2023 4:45pmAnemiaacuteDecember 2023 2:39pmCervical spondylosis with radiculopathyacuteDece2023 2:39pm Chronic HFrEF (heart failure with reduced ejection fraction)acuteApril 12, 2024 2:39pmChronic venous insufficiency of lower extremityacutemb2023 2:39pmHypertensionacutecemb2023 2:39pmLumbar stenosis without neurogenic claudicationacutemb2023 2:39pmMitral regurgitationacute April 12, 2024 2:39pmOccipital headacheacuteDecember 2023 2:39pm Orthostatic hypotensionacutemb2023 2:39pmAnemiaacuteJanuary 2024 1:44pmCervical spondylosis with radiculopathyacuteJanuary 2024 1:44pm Chronic HFrEF (heart failure with reduced ejection fraction)acuteJanuary 2024 1:44pmChronic venous insufficiency of lower extremityacuteMay 12, 2024 1:44pmHypertensionacuteJanuary 2024 1:44pmLumbar stenosis without neurogenic claudicationacuteJanuary 2024 1:44pmMitral regurgitationacute Miladys 2024 1:44pmOrthostatic hypotensionacuteJan2024 1:44pm [facility] Work Phone: 1(714) 776-509509-05-2024 Telephone encounter Note* Telephone Encounter - Triny Mart RN - 01/06/2024 11:44 AM EDT Pt calls to ask when her mammogram is due. Pt's record reviewed. Last Mamm done on 02/08/23 @ [facility]. 12 month f/u recommended. Order for Mamm faxed to [facility] on 06/22/23. Pt notified of the above. Advised she call [facility] to schedule. Pt verbalizes understanding and agrees. Triny Mart RN [facility] Work Phone: 1(139) 481-605409-05-2024 Miscellaneous Notes* Telephone Encounter - Triny Mart RN - 01/06/2024 11:44 AM EDT Pt calls to ask when her mammogram is due. Pt's record reviewed. Last Mamm done on 02/08/23 @ [facility]. 12 month f/u recommended. Order for Mamm faxed to [facility] on 06/22/23. Pt notified of the above. Advised she call [facility] to schedule. Pt verbalizes understanding and agrees. Triny Mart RN documented in [facility] encounter[facility] History of Present illness Narrative* Bryce [...] being. She is compensated Bryce Hendrickson MD, [facility] Review of Systems All other systems [...] content normal. Judgment: Judgment normal. Allergies Penicillins, Hisunnf-epo-xpj reductase inhibitors, and Atorvastatin Current Medications Current [...] exam, discussion and plan. [facility] Work Phone: 1([phone]) 302-172403-14-2024 Instructions* Patient Instructions* Tess Holcomb LPN - [...] Provided instructions on exercise. documented in [facility]Mer[facility] Work Phone: 1([phone]) 258-542402-20-2024 History of Present illness Narrative* Jacob Mercado [...] she underwent spinal surgery per Dr. Moreau forher chronic lower back pain, and her pain [...] 308 RADIOLOGY/OTHER STUDIES: 02/08/2023 Diagnostic right mammogram ([facility]) Benign finding. No change from comparison. Recommend routine mammogram in 12 months. 05/10/2022 Chest CTA ([facility]) No evidence for acute pulmonary embolism, thoracic aortic aneurysm, or aortic dissection. Mild cardiomegaly with trace 3 mm thick pericardial effusion. Mosaic attenuation of the bilateral lungs reflect sequelae of reactive airway inflammation. Moderate bilateral upper and lower lung linear scar. 04/08/2020 CT abdomen/pelvis ([facility]). 6.4 x 3.3 cm soft tissue [...] advanced left breast cancer diagnosed March 2011. ER/WV negative, HER-2 negative (triplenegative). Status post preop [...] presacral space. The patient was referred to [facility] colorectal surgery (Dr. Lorenzo) and underwent surgical [...] recommendations. Jacob Mercado MD documented in this encounterW[facility]01-24-[facility] Evaluation note* Encounter Date Diagnosis Assessment [...] have encouraged her to follow-up with a systems software manager. I will send her to therapy for gait training and leg strengthening. I reviewed the x-ray of the lumbar spine showing good bony alignment good hardware placement and shared these with the patient. I will see her again in 1 month. May,History of lumbar fusion (ICD-10 - Z98.1) May,oor balance (ICD-10 - R26.89) [facility] Other 01-05-2024 Evaluation note* Encounter Date Diagnosis Assessment Notes Treatment Notes Treatment Clinical Notes May, Acute bronchitis due to other sp ecified organisms (ICD-10 - J20.8) Instructed to use Robitussin or Mucinex for cough, saline or Flonase NS for congestion, Tylenol forpain and fever. No improvement, call for office visit. [facility] Other 12-28-2023 Evaluation note* Encounter Date Diagnosis Assessment Notes Treatment Notes Treatment Clinical Notes Apr, Acute bilateral low back pain wi thout sciatica (ICD-10 - M54.50) [facility] Other 12-28-2023 Evaluation note* Encounter Date Diagnosis [...] Apr,History of lumbar fusion (ICD-10 - Z98.1) [facility] Other 12-26-2023 Evaluation note* Encounter Date Diagnosis [...] Apr,History of lumbar fusion (ICD-10 - Z98.1) [facility] Other 12-18-2023 Progress note Author Saman Marino [facility] April 19, 2023 2:35pmNote Date/TimeDecember 2022 2:35pm[place] [address] Physiatry(Rehab) Progress Note Signed Patient: eRnuka Owen MR#: [id number] : 1950 Acct:[id number] Age/Sex: 72 / F Adm Date: 3 Loc: Room: [address] [place] [address] Type: ADM IN Attending Dr: Saman Marino [...] mg 04/15/23 16:39 Bisacodyl 10 Mg Supp.Rect WV 04/14/24 16:38 DAILY PRN Constipation Calcium Carbonate 1 tab 04/15/23 21:00 04/19/23 09:01 Calcium Carbonate/Vitamin D3 500 Mg/200 Unit Tablet PO 04/14/24 20:59 1 tab BID JUSTYN Administration Carvedilol 6.25 mg 04/15/23 17:00 04/19/23 09:02 Carvedilol 6.25 Mg Tablet PO 04/14/24 16:59 Not Given BID.WITH.MEALS [facility] Cyclobenzaprine HCl 10 mg 04/15/23 16:34 04/19/23 11:36 Cyclobenzaprine 10 Mg Tablet PO 04/14/24 16:33 10 mg Q8HR PRN Administration Spasms Docusate Sodium 100 mg 04/15/23 16:39 Docusate 100 Mg Capsule PO 04/14/24 16:38 BID PRN Constipation Docusate Sodium 283 mg 04/15/23 16:39 Docusate Enema 283 Mg/5 Ml Enema WV 04/14/24 16:38 DAILY PRN Constipation Enalapril Maleate 2.5 mg 04/15/23 21:00 04/19/23 09:02 Enalapril Maleate 5 Mg Tablet PO 04/14/24 20:59 Not Given BID JUSTYN Fluticasone Propionate 2 spray 04/15/23 16:34 Fluticasone Propionate Camden 120 Camden/16 Gm Bottle INTRANASAL 04/14/24 16:33 DAILY PRN Nasal Congestion Gabapentin 300 mg 04/16/23 09:00 04/19/23 09:01 Gabapentin 300 Mg Capsule PO 04/15/24 08:59 300 mg QAM JUSTYN Administration Gabapentin 600 mg 04/15/23 22:00 04/18/23 21:00 Gabapentin 300 Mg Capsule PO 04/14/24 21:59 600 mg BID@1400,2200 [facility] Administration Hydrochlorothiazide 25 mg 04/16/23 09:00 04/17/23 [...] equipment to enhance the patient's a functional synagogue Ensure adequate nutrition and hydration Sleep: No issues Pain: Reasonably controlled current regimen Discharge planning: Home tomorrow. I completed a substantive portion of this encounter, the medical decision makingportion of this note in its entirety, including Allied health note review, nursing note review, building consultant note review,discussion with nursing and case management, and more than 50% of my time was spent on counseling and coordination of care, time spent 35 minutes Patient was personally seen by me, Dr. Marino, on the day of encounter, I reviewed the history and the relevant portions of the chart, including current orders, allied health and building consultant notes, labs/imaging and performed butts elements of exam and I formulated the plan of care and facilitated the medical decision making. Documented By: Saman Marino MD 04/19/23 1434 Signed By: <Electronically signed by Saman Marino MD> 04/19/23 1435 [facility] Work Phone: 1(349) 732-605312-18-2023 Hospital Discharge instructionsAmbulatory Orders* Initiate Home Health [...] as needed. [facility] Home Health agency is [facility] ( ). They will contact you 24-48 [...] office to inform them prior to your appointment.[facility] Work Phone: 1([phone]) 189-241412-16-2023 Progress note Author Saman Marino [facility] April 17, 2023 12:23pmNote Date/TimeDecemb2022 12:23pmMinne[place] [address] Physiatry(Rehab) Progress Note Signed Patient: eRnuka Owen MR#: [id number] : 1950 Acct:[id number] Age/Sex: 72 / F Adm Date: 3 Loc: Room: 5R8838-5 Type: ADM IN Attending Dr: Saman Marino [...] Dose Route Start Last Admin Trade Name Alphonsoq PRN Reason Stop Dose Admin Acetaminophen 500 [...] mg 04/15/23 16:39 Bisacodyl 10 Mg Supp.Rect WV 04/14/24 16:38 DAILY PRN Constipation Calcium Carbonate 1 tab 04/15/23 21:00 04/17/23 08:43 Calcium Carbonate/Vitamin D3 500 Mg/200 Unit Tablet PO 04/14/24 20:59 1 tab BID JUTSYN Administration Carvedilol 6.25 mg 04/15/23 17:00 04/17/23 [...] 16:39 Docusate Enema 283 Mg/5 Ml Enema WV 04/14/24 16:38 DAILY PRN Constipation Enalapril Maleate 2.5 mg 04/15/23 21:00 04/17/23 08:45 Enalapril Maleate 5 Mg Tablet PO 04/14/24 20:59 Not Given BID [facility] Fluticasone Propionate 2 spray 04/15/23 16:34 Fluticasone Propionate Camden 120 Camden/16 Gm Bottle INTRANASAL 04/14/24 16:33 DAILY PRN [...] equipment to enhance the patient's a functional synagogue Ensure adequate nutrition and hydration Sleep: No issues Pain: Reasonably controlled current regimen Discharge planning: Home in a week or so. I completed a substantive portion of this encounter, the medical decision makingportion of this note in its entirety, including Allied health note review, nursing note review, building consultant note review,discussion with nursing and case management, and more than 50% of my time was spent on counseling and coordination of care, time spent 35 minutes Patient was personally seen by me, Dr. Marino, on the day of encounter, I reviewed the history and the relevant portions of the chart, including current orders, allied health and building consultant notes, labs/imaging and performed butts elements of exam and I formulated the plan of care and facilitated the medical decision making. Documented By: Saman Marino MD 04/17/231220 Signed By: <Electronically signed by Saman Marino MD> 04/17/231222 [facility] Work Phone: 1([phone]) 790-133312-15-2023 History and physical note Author Saman Marino [facility] April 16, 2023 1:42pmNote Date/TimeDecember 2022 11:19[place] [address] Physiatry (Rehab) H&P Signed Patient: Renuka Owen MR#: [id number] : 1950 Acct:[id number] Age/Sex: 72 / F Adm Date: 3 Loc: Room: 5C2327-8 Type: ADM IN Attending Dr: Saman Marino MD Copies to: NON STAFF CASSIA Guerrero MD~ Date of Service: 04/16/2023 HPI The [...] using a cane for ambulation. [facility] Medical History Arthritis Breast cancer left DDD [...] 81 Mg Tablet.Dr) 81 mg PO DAILY JUSTYN Stop: 04/15/24 08:59 Last Admin: 04/16/23 08:34 Dose: 81 mg Bisacodyl (Bisacodyl 10 Mg Supp.Rect) 10 mg WV DAILY PRN PRN Reason: Constipation Stop: 04/14/24 16:38 Calcium Carbonate (Calcium Carbonate/Vitamin D3 500 Mg/200 Unit Tablet) 1 tab PO BID [facility] Stop: 04/14/24 20:59 Last Admin: 04/16/23 08:41 Dose: 1 tab Carvedilol (Carvedilol 6.25 Mg Tablet) 6.25 mg PO BID.WITH.MEALS [facility] Stop: 04/14/24 16:59 Last Admin: 04/16/23 08:35 Dose: 6.25 mg Cyclobenzaprine HCl (Cyclobenzaprine 10 Mg Tablet) 10 mg PO Q8HR PRN PRN Reason: Spasms Stop: 04/14/24 16:33 Last Admin: 04/16/23 10:16 Dose: 10 mg Docusate Sodium (Docusate 100 Mg Capsule) 100 mg PO BID PRN PRN Reason: Constipation Stop: 04/14/24 16:38 Docusate Sodium (Docusate Enema 283 Mg/5 Ml Enema) 283 mg WV DAILY PRN PRN Reason: Constipation Stop: 04/14/24 16:38 Enalapril Maleate (Enalapril Maleate 5 Mg Tablet) 2.5 mg PO BID JUSTYN Stop: 04/14/24 20:59 Last Admin: 04/16/23 08:41 Dose: 2.5 mg Fluticasone Propionate (Fluticasone Propionate Camden 120 Camden/16 Gm Bottle) 2 spray INTRANASAL DAILY PRN PRN Reason: Nasal Congestion Stop: 04/14/24 16:33 Gabapentin (Gabapentin 300 Mg Capsule) 300 mg PO QAM [facility] Stop: 04/15/24 08:59 Last Admin: 04/16/23 08:34 Dose: 300 mg Gabapentin (Gabapentin 300 Mg Capsule) 600 mg PO BID@1400,2200 [facility] Stop: 04/14/24 21:59 Last Admin: 04/15/23 21:11 Dose: 600 mg Hydrochlorothiazide (Hydrochlorothiazide 25 Mg Tablet) 25 mg PO DAILY [facility] Stop: 04/15/24 08:59 Last Admin: 04/16/23 [...] 40 Mg Tablet.Dr) 40 mg PO DAILY [facility] Stop: 04/15/24 08:59 Last Admin: 04/16/23 08:35 Dose: 40 mg Senna/Docusate Sodium (Sennosides/Docusate 8.6-50mg 1 Tab Tablet) 2 tab PO BID [facility] Stop: 04/14/24 20:59 Last Admin: 04/16/23 08:35 Dose: 2 tab Sennosides (Sennosides 8.6 Mg Tablet) 2 tab PO DAILY@12 PRN PRN Reason: If no BM in 2 days Stop: 04/15/24 11:59 Sodium Chloride (Sodium Chloride 0.9 % 10 Ml Syringe) 0 ml IV-PUSH PRN PRN PRN Reason: Flush Stop: 04/14/24 16:38 Torsemide (Torsemide 20 Mg Tablet) 20 mg PO DAILY [facility] Stop: 04/15/24 08:59 Last Admin: 04/16/23 [...] % (Auto) 67.0 Lymph % (Auto) 18.4 Bullock % (Auto) 13.9 Eos % (Auto) 0.3 Baso % (Auto) 0.4 Nucleat RBC Rel Count 0.1 Neut # (Auto) 6.5 Lymph # (Auto) 1.8 Bullock # (Auto) 1.4 H Eos # (Auto) [...] 2 weeks Expected Discharge Destination: Home Rehabilitation [facility]: 08.9 Primary Diagnosis: Lumbar stenosis s/p multilevel [...] additional therapy on as needed basis. Comments: ANIMAL CARETAKER to evaluate and treat patient?s cognition, language and communication skills, assess swallow function. Other: Dietitian, Rehab nursing, Wound, P&O, Neuropsychology as needed RATIONALE FOR IRF ADMISSION: Patient has both medical and functional complexities that require 24 hour daily monitoring and intervention from Vehicle Dismantler as well as other consulting physicians including internal medicine as well as 24 hour daily site operations manager nursing - for medical safe / optimal manageme nt. Patient requires interdisciplinary therapy team rehabilitation care including OT, PT, ANIMAL CARETAKER, SW, Psychology, Rehab Nursing, requires and can [...] equipment to enhance the patient's a functional synagogue Ensure adequate nutrition and hydration Sleep: No issues Pain: Reasonably controlled current regimen Discharge planning: Home in a week or so. I spent greater than 35 minutes for services, including [id number] encounter with the patient, discussion of the case, plan of care, and exam; and [id number] activities, such as reviewing pertinent building consultant documentation, recent therapy notes, laboratory and radiology studies, and discussion of case with care team including physician, nursing, case manager specialist, and therapists. More than 50 % of time was spent on patient/family counseling or coordination ofcare. I completed a substantive portion of this encounter, the medical decision makingportion of this note in its entirety, including Allied health note review, nursing note review, building consultant note review,discussion with nursing and case management, and more than 50% of my time was spent on counseling and coordination of care, time spent 70 minutes Patient was personally seen by me, Dr. Marino, on the day of encounter, within 24hours of rehab admission, reviewed the history and the relevant portions of the chart, including current orders, alliedhealth and building consultant notes, labs/imaging and performed butts elements of exam and I formulated the plan of care and facilitated the medical decision making. Documented By: Marley Mendieta APRN 04/16/23 1 112 Signed By: <Electronically signed by CASSIA Mendieta> 04/16/23 1158 <Electronically signed by Saman Marino MD> 04/16/23 1342 [facility] Work Phone: 1(520) 174-643111-21-2023 Evaluation note* Encounter Date Diagnosis Assessment Notes Treatment Notes Treatment Clinical Notes Mar, Acute bilateral low back pain wi thout sciatica (ICD-10 - M54.50) [facility] Other 11-16-2023 History of Present illness Narrative* Bryce Hendrickson MD - 03/18/2023 10:30 AM EST Ray Owen is a 72 y.o. female [...] Left ventricular systolic dysfunction documented in this [facility] Work Phone: 1(821) 157-371111-16-2023 Instructions* Patient Instructions* Priscilla Gramajo LPN - [...] to hold Aspirin asdirected. [facility] Work Phone: 1(277) 965-783411-08-2023 Evaluation note* Encounter Date Diagnosis Assessment Notes [...] watch for pap results, call patient. Consider CLINICAL INFORMATICS PHYSICIAN referral for possible pessary.. She is having back surgery soon and may consider further nurse obgyn appts after surgery. [facility] Other 10-31-2023 History of Present illness Narrative* [...] 2.5 mg twice daily. Bryce Hendrickson MD, [facility] Review of Systems All other systems [...] linked to this encounter. documented in this [facility]Mer[facility] Work Phone: 1(132) 509-571010-31-2023 Instructions* Patient Instructions* Julito Westbrook LPN - [...] time of your visit. documented in [facility]Mer[facility] Work Phone: 1(470) 601-489410-30-2023 Evaluation note* Encounter Date Diagnosis Assessment Notes Treatment Notes Treatment Clinical Notes Jan, Dysuria (ICD-10 - R30.0) [facility] Other 10-26-2023 Evaluation note* Encounter Date Diagnosis [...] Jan,History of lumbar fusion (ICD-10 - Z98.1) [facility] Other 10-23-2023 Evaluation note* Encounter Date Diagnosis Assessment Notes Treatment Notes Treatment Clinical Notes Jan, Acute bilateral low back pain wi thout sciatica (ICD-10 - M54.50) [facility] Other 10-23-2023 Evaluation note* Encounter Date Diagnosis Assessment Notes Treatment Notes Treatment Clinical Notes Jan, Dysuria (ICD-10 - R30.0) [facility] Other 10-02-2023 Evaluation note* Encounter Date Diagnosis Assessment Notes Treatment Notes Treatment Clinical Notes Jan, Osteopenia of left forearm (ICD- 10 - M85.832) [facility] Other 09-21-2023 Evaluation note* Encounter Date Diagnosis [...] Jan,ain in left hip (ICD-10 - M25.552) [facility] Other 09-07-2023 Evaluation note* Encounter Date Diagnosis [...] (ICD-10 - R53.83)check labs: CBC, BS, TSH [facility] Other 04-14-2023 Evaluation note* Encounter Date Diagnosis Assessment Notes Treatment Notes Treatment Clinical Notes Aug, Benign hypertension with chronic kidney disease, stage III (ICD-10 - I12.9) [facility] Other 04-04-2023 Evaluation note* Encounter Date Diagnosis Assessment Notes Treatment Notes Treatment Clinical Notes Aug, Overactive bladder (ICD-10 - N32 .81) [facility] Other 03-16-2023 Evaluation note* Encounter Date Diagnosis [...] exercise for 30 minutes, 3-5 times weekly. [facility] Other 02-21-2023 Evaluation note* Encounter Date Diagnosis Assessment Notes Treatment Notes Treatment Clinical Notes Jun, Spondylolisthesis, lumbar region (ICD-10 - M43.16) At 3 months postop the patient now can leave her brace.She has good relief of Her leg pain. She is very happy with her progress I will see her back in 3 months with an x-ray.Her x-ray today looks good. [facility] Other 01-20-2023 Evaluation note* Encounter Date Diagnosis Assessment Notes Treatment Notes Treatment Clinical Notes May, Dysuria (ICD-10 - R30.0) [facility] Other 01-17-2023 History of Present illness Narrative* [...] pain on 05/10/2022. She was seen at [facility] emergency room and admitted for evaluation. Chest CTA was negative. Cardiac work-up was negative. Apparently she was given IV NSAID, and the painresolved instantly. Most likely she had acute pleurisy. She has had no recurrent symptoms. However,she plans to follow-up with her systems software manager and is scheduled to undergo a stress [...] 04/08/2021 308 RADIOLOGY/OTHER STUDIES: 05/10/2022 Chest CTA ([facility]) No evidence for acute pulmonary embolism, thoracic aortic aneurysm, or aortic dissection. Mild cardiomegaly with trace 3 mm thick pericardial effusion. Mosaic attenuation of the bilateral lungs reflect sequelae of reactive airway inflammation. Moderate bilateral upper and lower lung linear scar. 02/05/2022 Diagnostic right mammogram ([facility]) Benign finding. No change from comparison. Recommend routine mammogram in 12 months. 04/08/2020 CT abdomen/pelvis ([facility]). 6.4 x 3.3 cm soft tissue [...] advanced left breast cancer diagnosed March 2011. ER/[place] negative, HER-2 negative (triplenegative). Status post preop [...] presacral space. The patient was referred to [facility] colorectal surgery (Dr. Lorenzo) and underwent surgical [...] chest pain 05/10/2022. She was seen at [facility] emergency room and admitted for evaluation. Chest CTA was negative. Cardiac work-up was negative. Apparently she was given IV NSAID, and the pain resolved instantly. Most likely she had acute pleurisy. She has had no recurrent symptoms. Currently the patient plans to follow-up with her systems software manager and is scheduled to undergo a stress test. Jacob Mercado MD [facility]* Encounter Date Diagnosis Assessment [...] May,Fusion of lumbar spine (ICD-10 - M43.26) [employer] Other 01-05-2023 Evaluation note* Encounter Date Diagnosis Assessment Notes Treatment Notes Treatment Clinical Notes May, Primary hypertension (ICD-10 - I 10) May,Spondylolisthesis, lumbar region (ICD-10 - M43.16) [facility] Other 12-13-2022 Evaluation note* Encounter Date Diagnosis Assessment Notes Treatment Notes Treatment Clinical Notes Apr, Spondylolisthesis, lumbar region (ICD-10 - M43.16) She is doing well post operative, denies pain and over all looks good. Wound healed and well approximated, clean dry and intact. Removed 20 lazara. Will continue with physical therpay. Xray ordered and follow up in 4 weeks [employer] Other 11-30-2022 Progress note Author Vivi Biggs [facility] April 01, 2022 8:09amNote Date/TimeNovember 2021 7:37[place] [address] Neurosurgery Progress Note Signed Patient: Renuka Owen MR#: [id number] : 1950 Acct:[id number] Age/Sex: 71 / F Adm Date: 2 Loc: 4N Room: [address] [place] [address] Type: REG SD Attending Dr: Devin Moreau MD Copies to: [...] [place] 0728 Signed By: <Electronically signed by LORI Biggs> 04/01/22 0809 <Electronically signed by MD Devin Moreau> 03/31/22 0737 [facility] Work Phone: 1(821) 124-941011-29-2022 Hospital Discharge instructionsAmbulatory Orders* Initiate Home Health [...] it does not do not use the [facility] Work Phone: 1(900) 865-993409-20-2022 Evaluation note* Encounter Date Diagnosis Assessment Notes [...] delayed the patient's care, as I still thinkshe has primary hip pathology. I am recommending pain management for a intra-articular diagnostic therapeutic left hip injection. I suspect the majority of her pain is coming from this, I doubt at this point it is coming from the findings on the MRI. I will see the patient back in about 6 weeks [facility] Other 08-30-2022 Evaluation note* Encounter Date Diagnosis [...] will see her back in 6 weeks [employer] Other 07-05-2022 Evaluation note* Encounter Date Diagnosis [...] the office in 2 months for reevaluation. [facility] [employer] Other 06-09-2022 Progress note Author Devin Moreau [facility] October 09, 2021 7:38amNote Date/TimeJune 2021 7:38[place] [address] Neurosurgery Progress Note Signed Patient: Renuka Owen MR#: [id number] : 1950 Acct:[id number] Age/Sex: 70 / F Adm Date: 2 Loc: Room: [address] [place] [address] Type : REG SDC Attending Dr: Devin Moreau MD [...] signed by MD Devin Moreau> 10/09/21 0738 [facility] Work Phone: 1(452) 570-730704-07-2022 Evaluation note* Encounter Date Diagnosis Assessment Notes [...] She was actually due to see her systems software manager today and she canceled because of her [...] current pathological fracture (ICD- 10 - M81.0) [employer] Other 02-17-2021 History of Past illness Narrative* Problem Noted DateResolved DateRectal tumor/ocumented as of this encounter (statuses as of 05/08/2022) [facility] History of Past illness Narrative* ProblemNoted Date Resolved DateRectal tumor/1documented as of this encounter (statuses as of 05/20/2022) [facility] History of Past illness Narrative* ProblemNoted Date Diagnosed DateResolved DateRectal tumor/1documented as of this encounter (statuses as of 06/23/2023) [facility] Author Devin Moreau [facility] April 01, 2022 10:58amNote Date/TimeNov2021 10:57[place] [address] Discharge Summary Signed Patient: Renuka Owen MR#: [id number] : 1950 Acct:[id number] Age/Sex: 71 / F Adm Date: 2 Loc: Room: [address] [place] [address]: Devin Moreau MD Copies to: [...] signed by MD Devin Moreau> 04/01/22 1058 [facility] Work Phone: Evaluation noteNo assessment information available [facility] Work Phone: Evaluation note* Diagnosis Onset Date Resolution Status Lumbar stenosis without neurogenic my ication acute [facility] Work Phone: Evaluation noteNo InformationNort [employer] Other Evaluation note* Diagnosis Malignant neoplasm of left breast in female, estrogen receptor negative, unspecified site of breast(HCC) 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 [facility] Diagnosis Malignant neoplasm of upper-outer quadrant of left breast in female, estrogen receptor negative (HCC)- Primary [facility]* Diagnosis Mitral valve insufficiency, unspecified etiology Essential hypertension Unspecified essential hypertension Edema, unspecified type LBBB (left bundle branch block) Other left bundle branch block documented in this encounter [facility] Work Phone: Evaluation note* Diagnosis Mitral valve insufficiency, unspecified etiology- Primary Essential hypertension Unspecified essential hypertension Overweight with body mass index (BMI) of 29 to 29.9 in adult Edema, unspecified type Left ventricular systolic dysfunction documented in this encounter [facility] Work Phone: Evaluation note* Diagnosis Onset Date Resolution Status GERD (gastroesophageal reflux disease) acuteImpaired mobility and activities of daily livingacuteLeft bundle branch blockacuteLumbar stenosis without neurogenic claudicationacuteNeuropathyacute OsteoporosisacutePostoperative painacuteImpaired mobility and activities of daily livingacuteLeft bundle branch blockacuteLumbar stenosis without neurogenic claudicationacuteNeuropathyacutePostoperative painacute [facility] Work Phone: Evaluation note* Diagnosis Onset Date Resolution Status GERD (gastroesophageal reflux disease) acuteImpaired mobility and activities of daily livingacuteLeft bundle branch blockacuteLumbar stenosis without neurogenic claudicationacuteNeuropathyacute OsteoporosisacutePostoperative painacuteImpaired mobility and activities of daily livingacuteLeft bundle branch blockacuteLumbar stenosis without neurogenic claudicationacuteNeuropathyacutePostoperative painacuteLumbar adjacent segment disease with spondylolisthesisacuteSpondylolisthesis, lumbar regionacuteStatus post lumbar spinal fusionacute [facility] Work Phone: Evaluation note* Diagnosis Malignant neoplasm of upper-outer quadrant of left breast in female, estrogen receptor negative (HCC) (HCC)- Primary 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 [facility] Diagnosis Mitral valve insufficiency, unspecified etiology Essential hypertension Unspecified essential hypertension Left ventricular systolic dysfunction BMI 29.0-29.9,adult Never smoked tobacco documented in this encounter [facility] Work Phone: Evaluation note* Diagnosis Onset Date Resolution Status Lumbar adjacent segment disease with spo ndylolisthesis acuteSpondylolisthesis, lumbar regionacuteStatus post lumbar spinal fusionacute Inflammation of right sacroiliac jointacuteLumbar adjacent segment disease with spondylolisthesisacuteSpondylolisthesis, lumbar regionacuteStatus post lumbar spinal fusionacute [facility] Work Phone: Evaluation note* Diagnosis Onset Date Resolution Status Lumbar adjacent segment disease with spo ndylolisthesis acuteSpondylolisthesis, lumbar regionacuteStatus post lumbar spinal fusionacute Inflammation of right sacroiliac jointacuteLumbar adjacent segment disease with spondylolisthesisacuteSpondylolisthesis, lumbar regionacuteStatus post lumbar spinal fusionacuteChronic painacuteOther low back painacuteSacroiliitis, not elsewhere classifiedacute [facility] Work Phone: Evaluation note* Diagnosis Onset Date Resolution Status Inflammation of right sacroiliac joint acuteLumbar adjacent segment disease with spondylolisthesisacute Spondylolisthesis, lumbar regionacuteStatus post lumbar spinal fusionacute Chronic painacuteOther low back painacuteSacroiliitis, not elsewhere classified acuteChemotherapy-induced peripheral neuropathyacuteChronic venous insufficiency of lower extremityacuteLumbar spondylosisacuteNocturnal leg crampsacuteChronic painacuteOther low back painacuteSacroiliitis, not elsewhere classifiedacute [facility] Work Phone: Evaluation note* Diagnosis Onset Date Resolution Status Chronic pain acuteOther low back painacuteSacroiliitis, not elsewhere classifiedacute Chemotherapy-induced peripheral neuropathyacuteChronic venous insufficiency of lower extremityacuteLumbar spondylosisacuteNocturnal leg crampsacuteChronic pain acuteOther low back painacuteSacroiliitis, not elsewhere classifiedacuteLumbar spondylosisacuteStatus post lumbar spinal fusionacute [facility] Work Phone: Evaluation note* Diagnosis Onset Date Resolution Status Chronic pain acuteOther low back painacuteSacroiliitis, not elsewhere classifiedacute Chemotherapy-induced peripheral neuropathyacuteChronic venous insufficiency of lower extremityacuteLumbar spondylosisacuteNocturnal leg crampsacuteChronic pain acuteOther low back painacuteSacroiliitis, not elsewhere classifiedacuteLumbar spondylosisacuteStatus post lumbar spinal fusionacuteSinusitisacute [facility] Work Phone: Evaluation note* Diagnosis Onset Date Resolution Status Chemotherapy-induced peripheral neuropat hy acuteChronic venous insufficiency of lower extremityacuteLumbar spondylosisacute Nocturnal leg crampsacuteChronic painacuteOther low back painacuteSacroiliitis, not elsewhere classifiedacuteLumbar spondylosisacuteStatus post lumbar spinal fusionacuteSinusitisacuteChronic painacuteOther low back painacuteSacroiliitis, not elsewhere classifiedacute [facility] Work Phone: Evaluation note* Diagnosis Onset Date Resolution Status Chemotherapy-induced peripheral neuropat hy acuteChronic venous insufficiency of lower extremityacuteLumbar spondylosisacute Nocturnal leg crampsacuteChronic painacuteOther low back painacuteSacroiliitis, not elsewhere classifiedacuteLumbar spondylosisacuteStatus post lumbar spinal fusionacuteSinusitisacuteChronic painacuteOther low back painacuteSacroiliitis, not elsewhere classifiedacuteDegenerative arthritis of left footacuteLeft foot painacute [facility] Work Phone: Evaluation note* Diagnosis Onset Date Resolution Status Chronic pain acuteOther low back painacuteSacroiliitis, not elsewhere classifiedacuteLumbar spondylosisacuteStatus post lumbar spinal fusionacuteSinusitisacuteChronic pain acuteOther low back painacuteSacroiliitis, not elsewhere classifiedacute Degenerative arthritis of left footacuteLeft foot painacute [facility] Work Phone: Evaluation note* Diagnosis Onset Date Resolution Status Lumbar spondylosis acuteStatus post lumbar spinal fusionacuteSinusitisacuteChronic painacuteOther low back painacuteSacroiliitis, not elsewhere classifiedacuteDegenerative arthritis of left footacuteLeft foot painacuteChronic painacuteOther low back painacuteSacroiliitis, not elsewhere classifiedacute [facility] Work Phone: Evaluation note* Diagnosis Onset Date Resolution Status Chronic pain acuteOther low back painacuteSacroiliitis, not elsewhere classifiedacute Degenerative arthritis of left footacuteLeft foot painacuteChronic painacute Other low back painacuteSacroiliitis, not elsewhere classifiedacuteHistory of lumbar fusionacutePain of right sacroiliac jointacute [facility] Work Phone: Evaluation note* Diagnosis Onset Date Resolution Status Degenerative arthritis of left foot acuteLeft foot painacuteChronic painacuteOther low back painacuteSacroiliitis, not elsewhere classifiedacuteHistory of lumbar fusionacutePain of right sacroiliac jointacuteChemotherapy-induced peripheral neuropathyacuteChronic venous insufficiency of lower extremityacuteLumbar spondylosisacuteNocturnal leg crampsacute [facility] Work Phone: Evaluation note* Diagnosis Onset Date Resolution Status Degenerative arthritis of left foot acuteLeft foot painacuteChronic painacuteOther low back painacuteSacroiliitis, not elsewhere classifiedacuteHistory of lumbar fusionacutePain of right sacroiliac jointacuteAllergic rhinitisacuteChemotherapy-induced peripheral neuropathyacuteNasal polyp, posterioracuteTinnitus of both earsacute [facility] Work Phone: Evaluation note* Diagnosis Chronic sinusitis, unspecified location- Primary documented [facility]* Diagnosis Chronic frontal sinusitis- Primary documented in [facility]* Diagnosis Mitral valve insufficiency, unspecified etiology documented in this encounter [facility] Work Phone: Evaluation note* Diagnosis Mitral valve insufficiency, unspecified etiology- Primary Left ventricular systolic dysfunction Essential hypertension Unspecified essential hypertension LBBB (left bundle branch block) Other left bundle branch block BMI 28.0-28.9,adult Stage 3a chronic kidney disease (Multi) documented in this encounter [facility] Work Phone: Evaluation note* Diagnosis Dermatophytosis of nail- Primary Dystrophic nail Other specified disease of nail Pain in both feet documented in this encounter [facility] HealthcareEvaluation [facility]* Diagnosis Primary open angle glaucoma (POAG) of both eyes, mild stage (CMS/HCC)- Primary PCO (posterior capsular opacification), bilateral Unspecified after-cataract Keratoconjunctivitis sicca of both eyes not specified as Sjogren's documented in this encounter [facility]* Diagnosis Preop examination- Primary [...] negative (HCC)- Primary [facility] Diagnosis Dermatophytosis of nail- Primary Dystrophic nail Other specified disease of nail Pain around toenail, right foot Pain around toenail, left foot documented in this encounter [facility]* Diagnosis Osteoarthritis of midtarsal joint of left foot- Primary Capsulitis of left foot Pain in joint of left foot Pain and swelling of toe of left foot Difficulty walking Difficulty in walking documented in this encounter [facility]* Diagnosis Bilateral carpal tunnel syndrome- Primary Carpal tunnel syndrome Idiopathic progressive neuropathy documented in this encounter [facility]* Diagnosis Mitral valve insufficiency, unspecified etiology- Primary Left ventricular systolic dysfunction Essential hypertension Unspecified essential hypertension LBBB (left bundle branch block) Other left bundle branch block BMI 28.0-28.9,adult Never smoked tobacco Stage 3a chronic kidney disease (Multi) documented in this encounter [facility] Work Phone: Evaluation note* Diagnosis Acute pain of right shoulder- Primary Rotator cuff arthropathy of right shoulder Subacromial impingement of right shoulder documented in this encounter [facility]* Diagnosis Mitral valve insufficiency, unspecified etiology Left ventricular systolic dysfunction documented in this encounter [facility] Work Phone: History general Narrative - Reported* Type Description Date Medical History Breast Cancer Surgical HistoryhysterectomySurgical HistorycholecystectomySurgical Historylower backSurgical Historybilateral knee replacementSurgical Historyleft rotator cuff repairSurgical Historyleft mastectomySurgical Historybreast reconstruction Surgical Historybenign presacral mass ilihlit21/2021Hospitalization HistorySee Above [facility] Other History general Narrative - Reported* Type Description Date Medical History Breast Cancer Surgical HistoryhysterectomySurgical HistorycholecystectomySurgical Historylower backSurgical Historybilateral knee replacementSurgical Historyleft rotator cuff repairSurgical Historyleft mastectomySurgical Historybreast reconstruction Surgical Historybenign presacral mass rekxnde06/[address] Dr[address] Moreau04/01/2022Hospitalization HistorySee Above [facility] Other History general Narrative - Reported* Type [...] mastectomySurgical Historybreast reconstruction Surgical Historybenign presacral mass hqzuycz27/[address] Moreau04/01/2022Hospitalization HistorySee Above [facility] Other History general Narrative - Reported* Type [...] mastectomySurgical Historybreast reconstruction Surgical Historybenign presacral mass zhxcalh54/[address] Moreau04/01/2022urgical HistoryColonoscopy01/2018Hospitalization HistorySee Above [facility] Other History general Narrative - Reported* Type [...] mastectomySurgical Historybreast reconstruction Surgical Historybenign presacral mass gexflhb32/[address] Dr[address] Moreau04/01/2022urgical HistoryColonoscopy01/2018Hospitalization HistorySee Above [facility] Other History general Narrative - Reported* Type [...] Historyleft mastectomySurgical Historybreast reconstructionSurgical Historybenign presacral mass oymccta71/[address] Moreau04/01/2022urgical History Colonoscopy01/2018Hospitalization HistorySee Above [facility] Other History general Narrative - Reported* Type [...] Historyleft mastectomySurgical Historybreast reconstructionSurgical Historybenign presacral mass sgnogdu75/[address] Moreau04/01/2022urgical History Colonoscopy01/2018Surgical XccaqqgXIEE12/2023Hospitalization HistorySee Above [facility] Other Hospital Discharge instructionsAmbulatory Orders* Referral to Pain Management Location: None Selected [facility] Work Phone: Progress note Author Devin Moreau [facility] April 01, 2022 10:53amNote Date/TimeNovember 2021 10:53[place] [address] Neurosurgery Progress Note Signed Patient: Renuka Owen MR#: [id number] : 1950 Acct:[id number] Age/Sex: 71 / F Adm Date: 2 Loc: 4 Room: [address] [place] [address] Type: REG WVC Attending Dr: Devin Moreau MD Copies to: [...] Acute Documented By: Devin Moreau MD 04/01/22 105 Signed By: <Electronically signed by MD Devin Moreau> 04/01/22 1053 [facility] Work Phone: Reason for referral (narrative)* Diagnostic Procedure Only (Routine) - Pending ReviewSpecialtyDiagnoses / ProceduresReferred By ContactReferred To ContactBR IMAGING Diagnoses Malignant neoplasm of upper-outer quadrant of left breast in female, estrogen receptor negative (HCC) Procedures [facility] RT DIAGNOSTIC MAMMOGRAPHY COMPUTER-AIDED DETCJ UNI Jacob Mercado MD [address] [place] [address] [place] [address] [facility] [address] [place] [address] Referral IDStatusReasonStart DateExpiration DateVisits RequestedVisits [id number] Review Auto-Generated Referral / [facility] for referral (narrative)* Consultation (Routine) - AuthorizedSpecialtyDiagnoses / ProceduresReferred By ContactReferred To ContactCardiology Diagnoses Mitral valve insufficiency, unspecified etiology Essential hypertension Procedures Follow Up In Cardiology Bryce Hendrickson MD [address] [place] [address] 2, [address] [place] [address] Bryce Hendrickson MD [address] [facility] 2, [address] [address] Referral IDStatusReasonStart DateExpiration DateVisits RequestedVisits [id number]/31/202310/ [facility] Work Phone: reason for referral (narrative)* Consultation (Routine) - AuthorizedSpecialtyDiagnoses / ProceduresReferred By Contact Referred To ContactCardiology Diagnoses Mitral valve insufficiency, unspecified etiology Procedures Follow Up In Cardiology Bryce Hendrickson MD [address] [facility] 2, [address] [address] Bryce Hendrickson MD [address] [place] [address] [address], [address] [address] Referral IDStatusReasonStart DateExpiration DateVisits RequestedVisits [id number]/16/202311/ [facility] Work Phone: reason for referral (narrative)* Diagnostic Procedure Only (Routine) - Pending ReviewSpecialtyDiagnoses / ProceduresReferred By ContactReferred To ContactBR IMAGING Diagnoses Malignant neoplasm of upper-outer quadrant of left breast in female, estrogen receptor negative (HCC) (HCC) Procedures [facility] RIGHT DIAGNOSTIC MAMMOGRAPHY COMPUTER-AIDED DETCJ UNI Jacob Mercado MD [address] [place] [address] [place] [address] [address] Referral IDStatusReasonStart DateExpiration DateVisits RequestedVisits [id number] Review Auto-Generated Referral / [facility] for referral (narrative)No reason for referral information availableOur [facility] Of [facility] Work Phone: Reason for visit NarrativePain management referral [facility] [employer] Other Reason for visit Narrative* Consultation (Routine) - ClosedSpecialtyDiagnoses / ProceduresReferred By ContactReferred To Contact Neurology Diagnoses Headache, unspecified Spondylosis without myelopathy or radiculopathy, cervical region Procedures [facility] [facility] Physician [address] [place] [address] Phone: tel: fax: Bran Linda MD [address] [facility] [address] [place] [address] Phone: tel: fax: Referral IDStatusReasonStart DateExpiration DateVisits RequestedVisits [id number]/12/20259/ [facility] for visit Narrative* CV Imaging (Routine) - Authorized SpecialtyDiagnoses / ProceduresReferred By ContactReferred To Contact Cardiology Diagnoses Mitral valve insufficiency, unspecified etiology Left ventricular systolic dysfunction Procedures Transthoracic Echo Limited [place] ECHO TRANSTHORC R-T 2D W/WO M-MODE REC F-UP/LMTD [place] DOPPLER ECHO COLOR FLOW VELOCITY MAPPING [place] DOPPLER ECHO PULSE WAVE W/SPECTRAL F-UP/LMTD STD Bryce Hendrickson MD [address] [facility] 2, [facility] [address] [place] [address] Phone: tel: fax: Referral IDStatusReasonStart DateExpiration DateVisits RequestedVisits [id number] Perform Procedure [facility] Work Phone: Summary Purpose Family History Relationship Condition Age at Onset [...] Unknown fatherMalignant neoplasm of testicleUnknownDeceasedUnknownbrotherLeukemiaUnknown Advance Directives Advance Directive Response Recorded Date/ [...] 2024 9:54am Hospital Course Note HNO ID: [id number] Author: Keith winn (Halle) Duyen Service: Colorectal Author Type: Nurse Practitioner Type: [...] (more content not included)... Note HNO ID: [id number] Author: Yissel Reddy) Lucina Service: Anesthesiology Author Type: Nurse Clerk Telegraph Service Type: Anesthesia Procedure Notes Filed: 06/19/2020 2:41 PM Note Text: ANESTHESIOLOGY PROCEDURE NOTE Airway General Information Procedure Start Time/Medication Administration: 06/19/2020 2:25 PM Patient location during procedure: OR Timeout Performed Pre-procedure: timeout performed Patient identity confirmed: arm band and patient Staffing Anesthesiologist: Ricardo Arvizu SOCIOLOGY INSTRUCTOR: Robyn Reddy) Lucina Performed by: JENNI Indications and Patient Condition [...] (more content not included)... Note HNO ID: [id number] Author: Karuna He (Fel) Service: Colorectal Author Type: Fellow Type: Brief Op Note Filed: 06/19/2020 4:17 PM Note Text: BRIEF OPERATIVE NOTE - COLORECTAL SURGERY Log ID: [id number] Surgery/Procedure Date: 06/19/2020 Incision/Procedure Start Time: 2:46 PM Incision Close/Procedure End Time: 4:00 PM Surgeon(s) and Energy Technician(s): Surgeon(s) and Role: * Saman Lorenzo - Primary * Kota Wren) Gela - Resident - Assisting * Triny He [...] not included)... Procedure Findings Note HNO ID: [id number] Author: Yissel Reddy) Lucina Service: Anesthesiology Author Type: Nurse Clerk Telegraph Service Type: Anesthesia Procedure Notes Filed: 06/19/2020 2:41 PM Note Text: ANESTHESIOLOGY PROCEDURE NOTE Airway General Information Procedure Start Time/Medication Administration: 06/19/2020 2:25 PM Patient location during procedure: OR Timeout Performed Pre-procedure: timeout performed Patient identity confirmed: arm band and patient Staffing Anesthesiologist: Ricardo Arvizu SOCIOLOGY INSTRUCTOR: Robyn Reddy) Celioivurszula Performed by: JENNI Indications [...] (more content not included)... Note HNO ID: [id number] Author: Karuna He (Fel) Service: Colorectal Author Type: Fellow Type: Brief Op Note Filed: 06/19/2020 4:17 PM Note Text: BRIEF OPERATIVE NOTE - COLORECTAL SURGERY Log ID: [id number] Surgery/Procedure Date: 06/19/2020 Incision/Procedure Start Time: 2:46 PM Incision Close/Procedure End Time: 4:00 PM Surgeon(s) and Energy Technician(s): Surgeon(s) and Role: * Saman Lorenzo - [...] L4-5 revision 2 Week Po Plif W/X-Ray [facility] 1 Mo Po W/X-Ray m43.16 [...] Complaint 2 Week Po Plif W/X-R ay [facility] 1 Mo Po W/X-Ray m43.16 [...] Amb Documentation EST PT CONSULT DR LIZZETH COSTAReason for VisitLumbar adjacent segment disease with spondylolisthesis [...] xray Amb Documentation EST PT CONSULT DR MOREAU RECHECK LUMBAR PAIN LUMBAR PAIN leg cramps [...] Complaint Amb Documentation EST PT CONSULT DR MOREAU RECHECK LUMBAR PAIN LUMBAR PAIN leg cramps [...] Date vision, balance, and tapping in ears Oct lalito 2023 10:47am CC Adult Risk Stratification January 2:07pm headaches, neck, back of neck pain Decem 2023 2:12pm Syncope April 07, 2024 4 :45pm Syncope April 08, 2024 1 :15pm Amb Documentation April 10, 2024 9 :36am CC Adult Risk Stratification April 112023 4:16pm Inpatient f/u [facility] April 12, 2024 2:39pm Weakness/Walking May 12, [...] April 12, 2024 2:39pm Orthostatic hypotension April 12 2:39pm Anemia May 12, 2024 1 :44pm [...] gait when walking May 12, 2024 1:44pm Pihwn-cu-sjoozjv kidney injury May 052024 1:43pm Anemia June [...] :44pm Fall June 01, 2024 1 :43pm Alf Visit June 01, 2024 1 1:59pm Fall [...] gait when walking May 12, 2024 1:44pm Irecn-ms-htqfzay kidney injury May 052024 1:43pm Anemia June [...] gait when walking May 12, 2024 1:44pm Wjpmc-xn-fzhzbae kidney injury May 052024 1:43pm Anemia June [...] Risk Stratification April 112023 4:16pm Inpatient f/u [facility] April 12, 2024 2:39pm Weakness/Walking May 12, 2024 1 :44pm Fall June 01, 2024 1 :43pm Alf Visit June 01, 2024 1 1:59pm Fall June 03, 2024 8 :37am Fall June 05, 2024 9 :30am Amb Documentation June 27, 2024 8:38am Z96.652 - Presence of left artificial kn ee joint June 29, 2024 8:09am NEW LTKA PAIN AFTER FALL June 29, 2024 9:30am [facility] [place] f/u July 03, 2024 1:18 pm Reason [...] gait when walking May 12, 2024 1:44pm Hmwzt-jp-twjngxl kidney injury May 052024 1:43pm Anemia June [...] :44pm Fall June 01, 2024 1 :43pm Alf Visit June 01, 2024 1 1:59pm Fall June 03, 2024 8 :37am Fall June 05, 2024 9 :30am Alf Visit June 22, 2024 11:59pm Amb Documentation June 27, 2024 8:38am Z96.652 - Presence of left artificial kn ee joint June 29, 2024 8:09am NEW LTKA PAIN AFTER FALL June 29, 2024 9:30am [facility] [place] f/u July 03, 2024 1:18 pm Reason [...] gait when walking June 01, 2024 1:43pm Vmjex-aq-xknfcaj kidney injury May 052024 1:43pm Hypokalemia June [...] :44pm Fall June 01, 2024 1 :43pm Alf Visit June 01, 2024 1 1:59pm Fall June 03, 2024 8 :37am Fall June 05, 2024 9 :30am Alf Visit June 22, 2024 11:59pm Amb Documentation June 27, 2024 8:38am Z96.652 - Presence of left artificial kn ee joint June 29, 2024 8:09am NEW LTKA PAIN AFTER FALL June 29, 2024 9:30am [facility] [place] f/u July 03, 2024 1:18 pm 3 [...] gait when walking June 01, 2024 1:43pm Cazib-bl-uxannus kidney injury May 052024 1:43pm Hypokalemia June 01, 2024 1 :43pm Generalized weakness June 01, 2024 1:43pm History of total left knee replacement F [facility] 2024 9:30am Pes anserinus bursitis of left knee Febr [facility] 2024 9:30am Anemia July 03, 2024 1:18 [...] History of total left knee replacement M [facility] 2024 11:07am Pes anserinus bursitis of left knee [facility] 2024 11:07am Chief Complaint Admit Date Alf Visit June 22, 2024 11:59pm Amb Documentation June 27, 2024 8:38am Z96.652 - Presence of left artificial kn ee joint June 29, 2024 8:09am NEW LTKA PAIN AFTER FALL June 29, 2024 9:30am [facility] [place] f/u July 03, 2024 1:18 pm 3 WEEKS July 24, 2024 11: 07am Fatigued September 04, 2024 10:26a m Reason for Visit Admit Date History of total left knee replacement F [facility] 2024 9:30am Pes anserinus bursitis of left knee Febr [facility] 2024 9:30am Anemia July 03, 2024 1:18 [...] 10:26a m Chief Complaint Admit Date [facility] [place] f/u July 03, 2024 1:18 pm 3 [...] 2024 10:26am Opiate analgesic use agreement exists Augie martinez 2024 10:26am Left knee pain September [...] 2024 10:26am Opiate analgesic use agreement exists Augie martinez 2024 10:26am Left knee pain September [...] 2024 11:34am Opiate analgesic use agreement exists Augie martinez 2024 11:34am Right hand weakness September [...] Encephalopathy s/t Sepsis November 28, 2024 12:00am Alf Visit December 07, 2024 11: 59pm Alf Visit December 21, 2024 11 :59pm Amb [...] Encephalopathy s/t Sepsis November 28, 2024 12:00am Alf Visit December 07, 2024 11: 59pm Alf Visit December 21, 2024 11 :59pm Amb Documentation January 09, 2025 1:50pm N17.9 I50.20 January 11, 2025 3:24pm Hospital F/U January 11, 2025 4:07pm [facility] follow up January 15, 2025 11:36am Reason [...] insufficiency, unspecified etiology Procedures Transthoracic Echo Complete [place] ECHO TTHRC R-T 2D W/WOM-MODE COMPL SPEC&COLR D Bryce Hendrickson MD [facility], [address] [address] Referral IDStatusReasonCrossville DateExpiration DateVisits RequestedVisits [id number] Review Perform Procedure [id number] / ProceduresReferred By ContactReferred To ContactCardiology Diagnoses Mitral valve insufficiency, unspecified etiology Procedures Follow Up In Cardiology Bryce Hendrickson MD [facility], [address] [place] [address] Bryce Hendrickson MD [facility], [address] [place] [address] Referral IDStatusReasonCrossville DateExpiration DateVisits RequestedVisits [id number] Reason evaluate and treat Diagnosis 1 Lumbar stenosis with neurogenic claudication (M48.062) Referral Organization [facility] Referring Provider First Name Vivi Referring Provider Last Name Kalyan Referring Provider Specialty Nurse Pracdonna itioner Referred Organization [facility] Referred Address [address] [place], [place],[address] Referred Provider Specialty Physical The rapist Referral Priority Routine Reason *Waiting for appt Evaluate and Treat Intra-articular Diagnostic Therapeutic L Hip Injection Diagnosis 1 Arthropathy of left hip (M16.12) Referral Organization [facility] Referring Provider First Name Devin Referring Provider Last Name Lizzeth Referring Provider Specialty Neurologica l Surgery Referred Organization [facility] Pain Managemen t Bone [place] Referred Provider Artie Blackburn Referred Address [address] [facility] [place],[address] Referred Provider Specialty Pain Medicin e Referral Priority Routine General Notes Fore, Valeir M 022 08:24:55 AM >Received today and sent P2P Reason *FU 01/09 Evaluate and Treat Left Hip Pain Diagnosis 1 Arthropathy of left hip (M16.12) Referral Organization [facility] Referring Provider First Name Devin Referring Provider Last Name Lizzeth Referring Provider Specialty Neurologica l Surgery Referred Organization [facility] Referred Provider Eran Hankins Referred Address ,[place], [place],[address] Referred Provider Specialty Orthopedic S urgery Referral Priority Routine General Notes Valeri Hastings 022 12:36:21 PM >Received and sent referral [...] problems noted below but recently was at [facility] for chest pain and had ruled [...] chest pain requiring an ER visit to [facility]. Assessment was negative in the ER. [...] section and content) DATE CREATED AUTHOR 12/22/2017 [facility] DATE CREATED AUTHOR AUTHOR'S ORGANIZ ATION 04/24/2020 [facility] DATE CREATED AUTHOR AUTHOR'S ORGANIZ ATION 06/27/2020 [facility] DATE CREATED AUTHOR AUTHOR'S ORGANIZ ATION 05/12/2022 [facility] DATE CREATED AUTHOR AUTHOR'S ORGANIZ ATION 05/14/2022 [facility] DATE CREATED AUTHOR AUTHOR'S ORGANIZ ATION 09/04/2022 [facility] DATE CREATED AUTHOR AUTHOR'S ORGANIZ ATION 02/01/2023 [facility] DATE CREATED AUTHOR AUTHOR'S ORGANIZ ATION 05/02/2023 [facility] DATE CREATED AUTHOR AUTHOR'S ORGANIZ ATION 11/20/2024 [facility] DATE CREATED AUTHOR AUTHOR'S ORGANIZ ATION 01/25/2025 [facility] DATE CREATED AUTHOR AUTHOR'S ORGANIZ ATION 02/17/2025 [facility] DATE CREATED AUTHOR AUTHOR'S ORGANIZ ATION 02/21/2025 [facility] DATE CREATED AUTHOR AUTHOR'S ORGANIZ ATION 02/23/2025 [facility] Care Teams (unrecognized sec tion and content) [...] Provider Active Start: November 02, 2024 Regina Garcia DOEmeoscar ProviderActiveStart: November 02, 2024 Rosy Fineit ProviderActiveStart: November 02, 2024 Josh Sosa MDOther ProviderActiveStart: November 02, 2024 Carly Cuevas APRN ACNP-BCOther ProviderActiveStart: November 02, 2024 Josue Cosme MDOther ProviderActiveStart: November 02, 2024 Lloyd Liu MDOther ProviderActiveStart: November 02, 2024 Panda Dietrich MDOther ProviderActiveStart: November 02, 2024 Charlie Garcia DOOther ProviderActiveStart: November 02, 2024 Jatin Mccallum DOOther ProviderActiveStart: November 02, 2024 Cherise Lewis MDOther ProviderActiveStart: November 02, 2024 Casimiro Booth MDOther ProviderActiveStart: November 02, 2024 Sorin Timmons MDOther ProviderActiveStart: November 02, 2024 Tino Gaffney MDOther ProviderActiveStart: November 02, 2024 Danyelle Mathews MDOther ProviderActiveStart: November 02, 2024 Kimmy Fall NP-COther ProviderActiveStart: November 02, 2024 Sherin Arellano MDOther ProviderActiveStart: November 02, 2024 Hung Ryan MDOther ProviderActiveStart: November 02, 2024 Sin Martinez , RENETTAttending ProviderActiveStart: November 02, 2024 Sin Martinez MDOther ProviderActiveStart: November 02, 2024 Zak Blanca , MDAttending ProviderActiveStart: November 02, 2024 End: November 14, 2024Zenobia Carrasco MDOther ProviderActiveStart: November 02, 2024 End: November 14, 2024Saman Marino MDOther ProviderActiveStart: November 02, 2024 End: November 14, 2024Marley Mendieta APRNOther ProviderActiveStart: November 02, 2024 End: November 14enedisylvain Garza Jr DOOther ProviderActiveStart: November 02, 2024 End: November [...] Charlie Garcia DOOther ProviderActiveStart: November 09, 2024 Jatin Mccallum DOOther ProviderActiveStart: November 09, 2024 Cherise Lewis [...] ProviderActiveStart: November 09, 2024 Carol Ann Bueno APRNOther ProviderActiveStart: November 09, 2024 Lis Alcocer MDOther ProviderActiveStart: November 09, 2024 Rosalinda Parr MDOther ProviderActiveStart: November 09, 2024 Yo Dykes MDOther ProviderActiveStart: November 09, 2024 MADINA GomezP-BCOther ProviderActiveStart: November 09, 2024 Iraj Juan MDAttending ProviderActiveStart: November 09, 2024 Team Status: Active Member Role Status Dates Sylvester Jacob DO Primary Care Provider Active Start: November 14, 2024 Juan Jose Bryan ProviderActiveStart: November 14, 2024 Jared Louis MDOther ProviderActiveStart: November 14, 2024 Regina Leblanc RNOther ProviderActiveStart: November 14, 2024 Theresa Velez RNOther ProviderActiveStart: November 14, 2024 Magi Denslow , RNOther ProviderActiveStart: November 14, 2024 Blanca Arvizu , [...] MDOther ProviderActiveStart: November 14, 2024 Isaiah Bailey DOOther ProviderActiveStart: November 14, 2024 Servando Kelly MDOther ProviderActiveStart: November 14, 2024 Roxie Love , APRNOther ProviderActiveStart: November 14, 2024 Jasmine Diaz MDOther ProviderActiveStart: November 14, 2024 Sterling Coats MDOther ProviderActiveStart: November 14, 2024 Israel Lu MDOther ProviderActiveStart: November 14, 2024 Gage Pena MDOther ProviderActiveStart: November 14, 2024 Isaiah Mejia DOOther ProviderActiveStart: November 14, 2024 Wallace Meeks MDOther ProviderActiveStart: November 14, 2024 Yonas Hoyos MDOther ProviderActiveStart: November 14, 2024 Julito Malhotra NP-COther ProviderActiveStart: November 14, 2024 Leonardo Sanchez , APRNOther ProviderActiveStart: November 14, 2024 Zak Blanca MDOther ProviderActiveStart: November 14, 2024 Joaquin Pal MDOther ProviderActiveStart: November 14, 2024 Maynor Conway MDOther ProviderActiveStart: November 14, 2024 Dale Marcelo MDOther ProviderActiveStart: November 14, 2024 Meño Saldana MDOther ProviderActiveStart: November 14, 2024 Tatiana Sibley , DOOther ProviderActiveStart: November 14, 2024 Byron Dave , DOOther ProviderActiveStart: November 14, 2024 Xi Sosa , APRNOther ProviderActiveStart: November 14, 2024 [...] ProviderActiveStart: November 14, 2024 Maria C Martinez APRNOther ProviderActiveStart: November 14, 2024 Aura Alford RNOther ProviderActiveStart: November 14, 2024 Marley Mendieta APRNAttennatalia ProviderActiveStart: November 14, 2024 Team Status: Active Member Role Status Dates Sylvester Jacob DO Primary Care Provider Active Start: November 21, 2024 Caodaism D Siebenaler , MDAdmit ProviderActiveStart: November 21, 2024 Jared Louis MDAttending ProviderActiveStart: November 21, 2024 Jared Louis MDOther ProviderActiveStart: November 21, 2024 Regina Leblanc , RNOther ProviderActiveStart: November 21, 2024 Theresa Velez , RNOther ProviderActiveStart: November 21, 2024 Magi Young , RNOther ProviderActiveStart: November 21, 2024 Blanca Arvizu , RNOther ProviderActiveStart: November 21, 2024 Nava Oconnell , RNOther ProviderActiveStart: November 21, 2024 Areli Marino , JAYAOther ProviderActiveStart: November 21, 2024 Mary Marc MDOther ProviderActiveStart: November 21, 2024 Cb Adam , DOOther ProviderActiveStart: November 21, 2024 Dylan Pozo MDOther ProviderActiveStart: November 21, 2024 Freddy Arnold , DOOther ProviderActiveStart: November 21, 2024 Guero Mott MDOther ProviderActiveStart: November 21, 2024 Yary Johnson MDOther ProviderActiveStart: November 21, 2024 Isaiah Bailey DOOther ProviderActiveStart: November 21, 2024 Servando Kelly [...] ProviderActiveStart: November 21, 2024 Julito Malhotra , RESTAURANT BUSSER-COther ProviderActiveStart: November 21, 2024 Leonardo Sanchez , APRNOther ProviderActiveStart: November 21, 2024 Zak Blanca MDOther ProviderActiveStart: November 21, 2024 Joaquin Pal MDOther ProviderActiveStart: November 21, 2024 Maynor Conway MDOther ProviderActiveStart: November 21, 2024 Dale Marcelo MDOther ProviderActiveStart: November 21, 2024 Meño Saldana MDOther ProviderActiveStart: November 21, 2024 Tatiana Sibley , DOOther ProviderActiveStart: November 21, 2024 Byron Dave [...] APRNOther ProviderActiveStart: November 21, 2024 Aura Alford , JAYAOther ProviderActiveStart: November 21, 2024 Team Status: Active Member Role Status Dates Sylvester Jacob DO Primary Care Provider Active Start: November 28, 2024 Jared Louis MDAdmit ProviderActiveStart: November 28, 2024 Jared Louis MDAttending ProviderActiveStart: November 28, 2024 Jared Louis MDOther ProviderActiveStart: November 28, 2024 Regina Leblanc , JAYAOther ProviderActiveStart: November 28, 2024 Theresa Velez , JAYAOther ProviderActiveStart: November 28, 2024 Magi Young , JAYAOther ProviderActiveStart: November 28, 2024 Blanca Arvizu , JAYAOther ProviderActiveStart: November 28, 2024 Nvaa Oconnell , JAYAOther ProviderActiveStart: November 28, 2024 Areli Marino RNOther ProviderActiveStart: November 28, 2024 Mary Marc MDOther ProviderActiveStart: November 28, 2024 Cb Adam , DOOther ProviderActiveStart: November 28, 2024 Dylan Pozo MDOther ProviderActiveStart: November 28, 2024 Freddy [...] Pena MDOther ProviderActiveStart: November 28, 2024 Isaiah Frings , DOOther ProviderActiveStart: November 28, 2024 Wallace Meeks MDOther ProviderActiveStart: November 28, 2024 Yonas Hoyos MDOther ProviderActiveStart: November 28, 2024 Julito Malhotra , RESTAURANT BUSSER-COther ProviderActiveStart: November 28, 2024 Leonardo Sanchez , APRNOther ProviderActiveStart: November 28, 2024 Zak Blanca MDOther ProviderActiveStart: November 28, 2024 Joaquin Pal MDOther ProviderActiveStart: November 28, 2024 Maynor Conway MDOther ProviderActiveStart: November 28, 2024 Dale Marcelo MDOther ProviderActiveStart: November 28, 2024 Meño Saldana MDOther ProviderActiveStart: November 28, 2024 Tatiana Sibley , DOOther ProviderActiveStart: November 28, 2024 Byron Dave , DOOther ProviderActiveStart: November 28, 2024 Xi Sosa , APRNOther ProviderActiveStart: November 28, 2024 Zechariah Mccarthy , DOOther ProviderActiveStart: November 28, 2024 Ambkia Kevin MDOther ProviderActiveStart: November 28, 2024 Radhika [...] Active Start: December 07, 2024 Sylvester Jacob , DOAttending ProviderActiveStart: December 07, 2024 Team Status: Active Member Role Status Dates Sylvester Jacob DO Primary Care Provider Active Start: December 21, 2024 Sylvester Jacob , DOAttending ProviderActiveStart: December 21, 2024 Team Status: Active Member Role Status Dates Sylvester Jacob DO Primary Care Provider Active Start: January 09, 2025 Gwen Burk CMAAttending ProviderActiveStart: January 09, 2025 Team Status: Active Member Role Status Dates Sylvester Jacob DO Primary Care Provider Active Start: January 11, 2025 Danyelle Mathews , MDAttending ProviderActiveStart: January 11, 2025 Team Status: Inactive Member Role Status Dates Sylvester Jacob DO Primary Care Provider Active Start: January 11, 2025 End: January 11, 2025Danyelle Mathews , MDAttending ProviderActiveStart: January 11, 2025 End: January 11, 2025 Team Status: Inactive Member Role Status Dates Sylvester Jacob DO Primary Care Provide r, Attending Provider Active Start: July 03, 2024 End: July 03, 2024 Team Status: Inactive Member Role Status Dates Sylvester Jacob DO Primary Care Provider Active Start: July 24, 2024 End: July 24, 2024Emory Cole II MDAttending ProviderActiveStart: July 24, 2024 End: July [...] Inactive Member Role Status Dates Sylvester Jacob , DO Primary Care Provide r, Attending Provider Active Start: September 29, 2024 End: September 29, 2024 Team Status: Active Member Role Status Dates Sylvester Jacob DO Primary Care Provide r, Attending Provider Active Start: June 22, 2024 Team Status: Active Member Role Status Dates Sylvester Jacob DO Primary Care Provider Active Start: June 27, 2024 Gwen Burk CMAAttending ProviderActiveStart: June 27, 2024 Team Status: Inactive [...] June 01, 2024 End: June 05lexkimberly Garcia DOEmergenreyna ProviderActiveStart: June 01, 2024 End: June 05, 2024Michaecydney Mejia DOAdmit ProviderActiveStart: June 01, 2024 End: June 05Yesenia Neal ProviderActiveStart: June 01, 2024 End: June 05, 2024Racarlos Whitfield , MDAttending ProviderActiveStart: June 01, 2024 End: June 05, 2024Yesenia Murrieta ProviderActiveStart: June 01, 2024 End: June 05, 2024Yesenia Najera ProviderActiveStart: June 01, 2024 End: June 05, 2024Marley Mendieta APRNOther ProviderActiveStart: June 01, 2024 End: June 05enedisylvain Garza Jr, DOOther ProviderActiveStart: June 01, 2024 End: June 05Yesenia Lopez ProviderActiveStart: June 01, 2024 End: June 05, 2024 Team Status: Active Member Role Status Dates Sylvester Jacob DO Primary Care Provide r, Attending Provider Active Start: June 01, 2024 Team Status: Active Member Role Status Dates Sylvester Jacob DO Primary Care Provider Active Start: June 03, 2024 Venkat Llanos ProviderActiveStart: June 03, 2024 Isaiah Mejia DOAdmit Provider, Other ProviderActiveStart: June 03, 2024 Sherin Arellano , MDAttending Provider, Other ProviderActiveStart: June 03, 2024 Team Status: Active Member Role Status Dates Sylvester Jacob DO Primary Care Provider Active Start: June 05, 2024 Regina Garcia DOEmergenreyna ProviderActiveStart: June 05, 2024 Isaiah Mejia DOAdmit ProviderActiveStart: June 05, 2024 Sherin Arellano MDOther ProviderActiveStart: June 05, 2024 Zenobia Carrasco MDOther ProviderActiveStart: June 05, 2024 Saman Marino MDOther ProviderActiveStart: June 05, 2024 Marley Mendieta , APRNOther ProviderActiveStart: June 05, 2024 Iglesia Garza Jr, Other ProviderActiveStart: June 05, 2024 Jared Louis MDAttending Provider, Other ProviderActiveStart: June 05, 2024 Landon [...] Start: April 07, 2024 End: April 09SERGIO Garciarikey Care ProviderActiveStart: April 07, 2024 End: April 09jeffery Sosa MDAdmred Provider, Attending ProviderActive Start: April 07, 2024 End: April 09, 2024Yesenia Ho ProviderActiveStart: April 07, 2024 End: April 09, 2024 Team Status: Active Member Role Status Dates Romel William PA-C Emergency Provider Active Start: April 08, 2024 Issac Jama Care ProviderActiveStart: April 08, 2024 Josh Sosa , MDAdmit Provider, Other ProviderActiveStart: April 08, 2024 Malachielder Reid , MDAttending Provider, Other ProviderActiveStart: April 08, 2024 Team Status: Active Member Role Status Dates Sylvester Jacob DO Primary Care Provider Active Start: April 10, 2024 Gwen Lewis , CMAAttending ProviderActiveStart: April 10, 2024 Team Status: [...] Provider Active St art: March 31, 2024 Sylvester Jacob , SERGIOrialfredoy Care ProviderActiveStart: March 31, 2024 Team Status: Active Member Role Status Dates Sylvester Jacob DO Primary Care Provider Active Start: June 01, 2024 Regina Garcia , DOEmergency ProviderActiveStart: June 01, 2024 Isaiah Mejia DOAdmit Provider, Attending ProviderActiveStart: June 01, 2024 Team Status: Inactive Member Role Status Dates Sylvester Jacob DO Primary Care Provider Active Start: August 11, 2023 End: August 11, 2023Thurvashi Blackburn MDAttchucho ProviderActiveStart: August 11, 2023 End: August 11, 2023 Team Status: Inactive Member Role Status Dates Sylvester Jacob DO Primary Care Provider Active Start: September 07, 2023 End: September 07, 2023Thurvashi Blackburn MDAttchucho ProviderActiveStart: September 07, 2023 End: September 07, 2023 Team Status: Active Member Role Status Dates Sylvester Jacob DO Primary Care Provider Active Start: September 07, 2023 Artie Blackburn MDAttending Provider, Other ProviderActiveStart: September 07, 2023 [...] Start: September 22, 2023 End: September 22, 2023Artie Blackburn MDAttending ProviderActiveStart: September 22, 2023 End: September 22, 2023 Team Status: Inactive Member Role Status Dates Sylvester Jacob DO Primary Care Provider Active Start: October 19, 2023 End: October 18Yasmine Mcphersonending ProviderActiveStart: October 19, 2023 End: October 19, 2023 Team Status: Inactive Member Role Status Dates Sylvester Jacob DO Primary Care Provider Active Start: November 01, 2023 End: November 01, 2023Ana Maria Landeros APRN [employer]-CAttending ProviderActiveStart: November 01, 2023 End: November 01, 2023 Team Status: Active Member Role Status Dates NON STAFF Primary Care Provider Active Start: June 29, 2023 Aliza Quintero ProviderActiveStart: June 29, 2023 Team Status: Inactive Member Role Status Dates Sylvester Jacob DO Primary Care Provider Active Start: July 20, 2023 End: July 19Jorge Mcpherson ProviderActiveStart: July 20, 2023 End: July 20, 2023 Team Status: Inactive Member Role Status Dates Devin Moreau MD Attending Provider Active Star t: July 20, 2023 End: July 19Issac Garcia ProviderActiveStart: July 20, 2023 End: July 20, 2023 Team Status: Active Member Role Status Dates Sylvester Jacob DO Primary Care Provider Active Start: July 28, 2023 Aliza Quintero ProviderActiveStart: July 28, 2023 Team Status: Inactive Member Role Status Dates Sylvester Jacob DO Primary Care Provider Active Jorge Frederick ProviderActiveTeam MemberRelationshipSpecialtyStart DateEnd Date Sylvester Jacob DO [address] [place] [address] PCP - GeneralInternal Medicine06/04/20Team MemberRelationshipSpecialtyStart Date End Date Sylvester Jacob DO [address] [place] [address] [facility] - [facility]06/04/20Team MemberRelationshipSpecialtyStart Date End Date Sylvester Jacob DO [address] [place] [address] [place] [address] PCP - Pmbogfr31/23/19 Team Status: Inactive Member Role Status Dates Radha Moreau MD Attending Provider Active Team Status: Inactive Member Role Status Dates Devin Moreau MD Attending Provider Active Team Status: Active Member Role Status Dates NON STAFF Primary Care Provider Active Team Status: Inactive Member Role Status Dates Devin Moreau MD Attending Provider Active NON STAFFPrimary Care ProviderActiveChsravanthi Louis MDOther Provider Active Team Status: Inactive [...] Active Start: April 09, 2023 End: April 09Yasmine Mcphersonending ProviderActiveStart: April 09, 2023 End: April 09, [...] Start: April 15, 2023 End: April 20, 2023JoJuan Jose Hernandez Provider, Attending Provider ActiveStart: April 15, 2023 [...] Start: May 26, 2023 End: May 26, 2023Manish Moreno ProviderActiveStart: May 26, 2023 End: May 26, 2023 Team Status: Inactive Member Role Status Dates NON STAFF Primary Care Provider Active Start: June 21, 2023 End: June 21, 2023Manish Moreno ProviderActiveStart: June 21, 2023 End: June 21, 2023Team MemberRelationshipSpecialtyStart DateEnd Date Sylvester Jacob DO [facility]06/04/20Team MemberRelationshipSpecialtyStart Date End Date Sylvester Jacob DO PCP - Ppwjcun61/23/19 Team Status: Active Member Role Status Dates NON STAFF Primary Care Provider Active Start: June 22, 2023 Sylvester Jacob DOAttchucho ProviderActiveStart: June 22, 2023 Team Status: Active Member Role Status Dates Sylvester Jacob DO Primary Care Provider Active Start: July 20, 2023 Jorge Frederick ProviderActiveStart: July 20, 2023 Team Status: Active Member Role Status Dates Sylvester Jacob DO Primary Care Provider Active Start: October 19, 2023 Jorge Frederick ProviderActiveStart: October 19, 2023 Team Status: Inactive Member Role Status Dates Sylvester Jacob DO Primary Care Provider Active Start: November 24, 2023 End: November 24, 2023Jorge Painter ProviderActiveStart: November 24, 2023 End: November 24, 2023 Team Status: Inactive Member Role Status Dates Sylvester Jacob DO Primary Care Provide r, Attending Provider Active Start: December 13, 2023 End: December 13, 2023 Team Status: Inactive Member Role Status Dates Sylvester Jacob DO Primary Care Provider Active Start: December 21, 2023 End: December 20urvashi Yasmine Blackburnending ProviderActiveStart: December 21, 2023 End: December 21, 2023 Team Status: Active Member Role Status Dates Sylvester Jacob DO Primary Care Provider Active Start: December 21, 2023 Artie Bere , Yasmineending Provider, Other ProviderActiveStart: December 21, 2023 Team Status: Inactive Member Role Status Dates Sylvester Jacob DO Primary Care Provider Active Start: January 05, 2024 End: January 04urvashi Bere MDAttending ProviderActiveStart: January 05, 2024 End: January 05, 2024Team MemberRelationshipSpecialtyStart DateEnd Date Sylvester Jacob DO PCP - [facility]06/04/20 Team Status: Active Member Role Status Dates [...] DateEnd Date Sylvester Jacob MD [address] [place] [address] [facility]09/30/22Team MemberRelationshipSpecialtyStart Date End Date Sylvester Jacob MD [address] [place] [address] PCP - GeneralInternal Medicine09/30/22Team MemberRelationshipSpecialtyStart Date End Date Sylvester Jacob MD [address] [place] [address] PCP - GeneralInternal Medicine09/30/22Team MemberRelationshipSpecialtyStart Date End Date Sylvester Jacob DO [address] [place] [address] PCP - GeneralInternal Medicine01/05/24am MemberRelationshipSpecialtyStart Date End Date Sylvester Jacob DO [address] [place] [address] PCP - GeneralInternal Medicine01/05/24Team MemberRelationshipSpecialtyStart Date End Date Sylvester Jacob MD [address] [facility] [place] [address] PCP - GeneralInternal Medicine09/30/22Team MemberRelationshipSpecialtyStart Date End Date Sylvester Jacob MD [address] [place] [address] PCP - GeneralInternal Medicine09/30/22Team MemberRelationshipSpecialtyStart Date End Date Sylvester Jacob MD [address] [place] [address] PCP - GeneralInternal Medicine09/30/22 Team Status: Inactive Member Role Status Dates Sylvester Jacob DO Primary Care Provider Active Start: June 01, 2024 End: June 05lexkimberly Garcia DOEmergency ProviderActiveStart: June 01, 2024 End: June 05, 2024Micnuris Mejia DOAdmit ProviderActiveStart: June 01, 2024 End: June 05Yesenia Neal ProviderActiveStart: June 01, 2024 End: June 05, 2024Yesenia Murrieta ProviderActiveStart: June 01, 2024 End: June 05, 2024Saman Marino MDOther ProviderActiveStart: June 01, 2024 End: June 05, 2024Elenyissel Mendieta , APRNOther ProviderActiveStart: June 01, 2024 End: June 05enedict Cydney Garza Jr DOOther ProviderActiveStart: June 01, 2024 End: June 05carolin Louis MDOther ProviderActiveStart: June 01, 2024 End: June 05, 2024Rahucydney Whitfield MDAttending ProviderActiveStart: June 01, 2024 End: June 05, 2024 Team Status: Active Member Role Status Dates Sylvester Jacob DO Primary Care Provider Active Start: June 29, 2024 Emory Cole II, MDAttending ProviderActiveStart: June 29, 2024 Team MemberRelationshipSpecialtyStart DateEnd Date Sylvester Jacob MD [address] [place] [address] PCP - GeneralInternal Medicine09/30/22Team MemberRelationshipSpecialtyStart Date End Date Sylvester Jacob DO PCP - GeneralInternal Medicine06/04/20Team MemberRelationshipSpecialtyStart Date End Date Sylvester Jacob DO PCP - GeneralInternal Medicine06/04/20Team MemberRelationshipSpecialtyStart Date End Date Sylvester Jacob DO [address] [place] [facility] [place] [address] PCP - GeneralInternal Medicine09/30/22Team MemberRelationshipSpecialtyStart Date End Date Sylvester Jacob, DO [address] [place] [facility] [place] [address] PCP - GeneralInternal Medicine09/30/22Team MemberRelationshipSpecialtyStart Date End Date Sylvester Jacob DO [address] [facility] [place] [address] PCP - GeneralInternal Medicine09/30/22Team MemberRelationshipSpecialtyStart Date End Date Sylvester Jacob DO [address] [facility] [place] [address] PCP - GeneralInternal Medicine09/30/22Team MemberRelationshipSpecialtyStart Date End Date Sylvester Jacob DO [address] [facility] [place] [address] PCP - GeneralInternal Medicine09/30/22Team MemberRelationshipSpecialtyStart Date End Date Sylvester Jacob DO [address] [place] [facility] [place] [address] PCP - GeneralInternal Medicine09/30/22 Team Status: Inactive Member Role Status Dates Sylvester Jacob DO Primary Care Provider Active Start: September 04, 2024 End: September 04Remy Garcia ProviderActiveStart: September 04, 2024 End: September 04, 2024 Team Status: Active Member Role Status Dates Sylvester Jacob DO Primary Care Provider Active Start: September 05, 2024 Sylvester Ball , DOAttending ProviderActiveStart: September 05, 2024 Team Status: Inactive Member Role Status Dates Sylvester Jacob DO Primary Care Provider Active Start: September 29, 2024 End: September 29satnamhaseeb Jacob Attending ProviderActiveStart: September 29, 2024 End: September 29, 2024 Team Status: Active Member Role Status Dates Sylvester Jacob DO Primary Care Provider Active Start: November 02, 2024 Regina Garcia DOEmergenreyna ProviderActiveStart: November 02, 2024 Josh Sheila , MDAdmit ProviderActiveStart: November 02, 2024 Josh Sosa MDAttending ProviderActiveStart: November 02, 2024 Team Status: Inactive Member Role Status Dates Sylvester Jacob DO Primary Care Provider Active Start: January 15, 2025 End: January 15satnamhaseeb Jacob Attending ProviderActiveStart: January 15, 2025 End: January 15, 2025Team MemberRelationshipSpecialtyStart DateEnd Date Sylvester Jacob DO [address] [place] [address] PCP - GeneralInternal Medicine01/05/24Team MemberRelationshipSpecialtyStart Date End Date Sylvester Jacob DO [address] [place] [address] PCP - GeneralInternal Medicine09/30/22Team MemberRelationshipSpecialtyStart Date End Date Sylvester Jacob DO [address] [place] [address] PCP - GeneralInternal Medicine09/30/22Team MemberRelationshipSpecialtyStart Date End Date Sylvester Jacob DO [address] [place] [address] PCP - GeneralInternal Medicine01/05/24Team MemberRelationshipSpecialtyStart Date End Date Sylvester Jacob DO [address] [place] [address] PCP - GeneralInternal Medicine09/30/22 Goals (unrecognized section and content) Goals may [...] (unrecogniz ed section and content) ReasonOnset DateCommentsRefill Lebkkwf9505/06/2022ReasonCommentsBreast Cancer Follow upReasonCommentsFollow-up1 yearReasonCommentsPre-op Clearance6 weeks SpecialtyDiagnoses / ProceduresReferred By ContactReferred To ContactCardiology Diagnoses Mitral valve insufficiency, unspecified etiology Essential hypertension Procedures Follow Up In Cardiology Bryce Hendrickson MD [address] [facility] [address], [address] [address] Bryce Hendrickson MD [address] [facility] [address], [address] [place] [address] Referral IDStatusReasonCrossville DateExpiration DateVisits RequestedVisits [id number]/31/202310/[id number] Cancer ReasonCommentsFollow-up4 monthsSpecialtyDiagnoses / ProceduresReferred By ContactReferred To ContactCardiology Diagnoses Mitral valve insufficiency, unspecified etiology Procedures Follow Up In Cardiology Bryce Hendrickson MD [address] [place] [address] [address], [address] [address] Bryce Hendrickson MD [address] [place] [address] [address], [address] [address] Referral IDStatus[facility] DateExpiration DateVisits RequestedVisits [id number]/16/202311/15/[id number] MammogramReasonCommentsAllergic RhinitisNasal polyp.TinnitusSpecialtyDiagnoses / ProceduresReferred By ContactReferred To ContactOtolaryngology Diagnoses Allergic rhinitis, unspecified Polyp of nasal cavity Tinnitus, bilateral Procedures [facility] [facility] Sylvester Jacob MD [address] [place] [address] Phone: tel: Chuck Cope MD [address] [facility] [address] [place] [address] Phone: tel: fax: Referral IDStatMercy Health DateExpiration DateVisits RequestedVisits [id number]/31/20244/[id number]a Sinusitis Follow up XR sinuses [facility] 03/23/24SpecialtyDiagnoses / ProceduresReferred By ContactReferred To ContactCardiology Diagnoses Mitral valve insufficiency, unspecified etiology Procedures Transthoracic Echo Complete [place] ECHO TTHRC R-T 2D W/WOM-MODE COMPL SPEC&COLR D Bryce Hendrickson MD [address] [place] [address] [address], [address] [address] Referral IDStatusReasonStart DateExpiration DateVisits RequestedVisits [id number] Perform Procedure [id number]-dj6 monthSpecialtyDiagnoses / ProceduresReferred By ContactReferred To ContactCardiology Diagnoses Mitral valve insufficiency, unspecified etiology Procedures Follow Up In Cardiology Bryce Hendrickson MD [address] [place] [address] 2, [place] [id number] Phone: tel: fax: Bryce Hendrickson MD [address] [facility] 2, [place] [id number] Phone: tel: fax: Referral IDStatusReasonStnora DateExpiration DateVisits RequestedVisits [id number]/14/20243/14/[id number] careDeleonel Owen is a 73 y.o. female who presents for Nail Care.Patient relates she has been lettingher nails grow longer so she could slovak them. Last visit 12/2022. ReasonCommentsFollow-upReasonOnset DateCommentscancel fu appt for ct scan not done07/03/2024ReasonOnset DateCommentsRefill Zrmfwcn7808/07/2024ReasonComments Toenail CarePt is here today requesting nail care, she was last here 05-16-2024. Her Lt hallux nail is becoming painful for her. SS: 8ReasonCommentsFoot Pain Renukalori Owen is a 73 y.o. female requesting to be seen for BL foot pain, Right is typically worse. Pain started 12 months ago, off/on. Pain on top of foot, worse by evening. 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 Patient has taken Gabapentin for years for herfoot pain. Patient is requesting xrays today. ML0MlukykWakkwxnrXvguwi-mfOitpzqd here for 8 month follow up for hypertension.SpecialtyDiagnoses / ProceduresReferred By ContactReferred To ContactCardiology Diagnoses Mitral valve insufficiency, unspecified etiology Procedures Follow Up In Cardiology Bryce Hendrickson MD [address] [facility] [address], [address] [address] Phone: tel: fax: Bryce Hendrickson MD [facility] [facility] [address], [address] [address] Phone: tel: fax: Referral IDStatusReasonStart DateExpiration DateVisits RequestedVisits [id number]/2/20251/2/444051GilxgrCllndnyoMwft Source Comments (unrecognize d section and content) In the event this informatio n is protected by the Federal Confidentiality of Alcohol and Drug Abuse Patient Records regulations: The Federal rules restrict any use of the information to criminally investigate or prosecute any alcohol or drug abuse patient.[facility] HospitalIn the event this information is protected by the Federal Confidentiality of Alcohol and Drug Abuse Patient Records regulations: The Federal rules restrict any use of the information to criminally investigate or prosecute any alcohol or drug abuse patient.[facility] HospitalIn the event this information is protected by the Federal Confidentiality of Alcohol and Drug Abuse Patient Records regulations: The Federal rules restrict any use of the information to criminally investigate or prosecute any alcohol or drug abuse patient.[facility] HospitalIn the event this information is protected by the Federal Confidentiality of Alcohol and Drug Abuse Patient Records regulations: The Federal rules restrict any use of the information to criminally investigate or prosecute any alcohol or drug abuse patient.[facility] HospitalIn the event this information is protected by the Federal Confidentiality of Alcohol and Drug Abuse Patient Records regulations: The Federal rules restrict any use of the information to criminally investigate or prosecute any alcohol or drug abuse patient.[facility] HospitalIn the event this information is protected by the Federal Confidentiality of Alcohol and Drug Abuse Patient Records regulations: The Federal rules restrict any use of the information to criminally investigate or prosecute any alcohol or drug abuse patient.[facility] FOR RECORDS PERTAINING TO PATIENTS WHO [...] BE BASED ON THE PRIMARY CLINICAL RECORDS. [employer] [facility]. provides no warranty or guarantee of the accuracy or completeness of information in this document.
[2025-02-28 15:15] LABS: Anion Gap 14.8; Blood Urea Nitrogen 42.0 mg/dL (7.0-18.0); Calcium 9.7 mg/dL (8.5-10.1); Carbon Dioxide 26.9 mmol/L (21.0-32.0); Chloride 100 mmol/L (98-107); Estimated GFR (African America 54 (>=60 mL/min/1.73m^2); Estimated GFR (Non-African Ame 44 (>=60 mL/min/1.73m^2); Glucose 96 mg/dL (74-106); Potassium 4.7 mmol/L (3.5-5.1); Sodium 137 mmol/L (136-145)
== END 2025-02-28 14:30 | disposition home or self-care (01) ==
PROVIDERS: PCP Internal Medicine; Visit Provider Internal Medicine Cardiovascular Disease
DX: I10 Essential (primary) hypertension (principal)
CPT/HCPCS: 36415; 80048

== ENCOUNTER 2025-03-02 10:50 | Outpatient (OUT) | payer MEDICARE, SELFPAY ==
--- OUTSIDE RECORDS SUMMARY | 2025-02-19 13:16 | XMS_ITS | Encounter Summary ---
Author Organization [facility] Address [address] [place] [address] Phone Care Team Providers Care Candy Rolling Machine Operator Name Role Phone Mervin Chanel Galo FENG Primary Care Provider [phone] Reason for Referral * CV Imaging (Routine) - AuthorizedSpecialtyDiagnoses / ProceduresReferred By ContactReferred To ContactCardiology Diagnoses Mitral valve insufficiency, unspecified etiology Left ventricular systolic dysfunction Procedures Transthoracic Echo Limited [place] ECHO TRANSTHORC R-T 2D W/WO M-MODE REC F-UP/LMTD [place] DOPPLER ECHO COLOR FLOW VELOCITY MAPPING [place] DOPPLER ECHO PULSE WAVE W/SPECTRAL F-UP/LMTD STD Harjeet Cheung MD [address] [place] [address] Phone: tel: fax: Referral IDStatusReasonStart DateExpiration DateVisits RequestedVisits [id number] Perform Procedure Reason for Visit * CV Imaging (Routine) - AuthorizedSpecialtyDiagnoses / ProceduresReferred By ContactReferred To ContactCardiology Diagnoses Mitral valve insufficiency, unspecified etiology Left ventricular systolic dysfunction Procedures Transthoracic Echo Limited [place] ECHO TRANSTHORC R-T 2D W/WO M-MODE REC F-UP/LMTD NY DOPPLER ECHO COLOR FLOW VELOCITY MAPPING [place] DOPPLER ECHO PULSE WAVE W/SPECTRAL F-UP/LMTD STD Harjeet Cheung MD [address] [facility] [address] [place] [address] Phone: tel: fax: Referral IDStatusReasonStart DateExpiration DateVisits RequestedVisits [id number] Perform Procedure Encounter Details DateTypeDepartmentCare Team (Latest Contact Info)Zruaedcwccp82/20/2025 1:16 PM EDT - 02/19/2025 11:59 PM EDTHospital Encounter [facility] [address] [address] Mitral valve insufficiency, unspecified etiology; Left ventricular systolic dysfunction Discharge Disposition: Home Social History Tobacco UseTypesPacks/DayYears UsedDateSmoking Tobacco: NeverSmokeless Tobacco: NeverAlcohol UseStandard Drinks/WeekCommentsYes0 (1 standard drink = 0.6 oz pure alcohol)rarelyCommentsNoSex and Gender InformationValueDate RecordedSex Assigned at IgfusRlnuvg90/31/2023 2:42 PM EDTLegal JxiXojxxp85/26/2022 2:47 PM ESTGender DdifemavCjrurm10/31/2023 2:42 PM EDTSexual OrientationNot on file documented as of this encounter Last Filed Vital Signs Vital SignReadingTime TakenCommentsBlood Cqqistyd422/ 1:36 PM EDT Pulse--Temperature--Respiratory Rate--Oxygen Saturation--Inhaled Oxygen Concentration--Wvcpvx34.1 kg (148 lb)02/19/2025 1:36 PM OLCUrcofu753.9 cm (5' 1 )02/19/2025 1:36 PM EDTBody Mass Index27.9602/19/2025 1:36 PM EDTdocumented in this encounter Functional Status * BPAnswerDate of BcrponqmloYmyftk783/ 1:36 PM Светлана Alvarado, RVT * Communicable Disease ScreeningQuestionAnswerDate of AssessmentAuthorDo you have any of the following new or worsening symptoms?None of these02/19/2025 1:16 PM Jaqueline Garcia documented as of this encounter Medications at Time of Discharge MedicationSigDispense QuantityRefillsLast FilledStart DateEnd Date aspirin 81 mg EC tablet Take 1 tablet (81 mg) by mouth once daily. baclofen (Lioresal) 20 mg tablet Take 1 tablet (20 mg) by mouth once daily as needed. dapagliflozin propanediol (Farxiga) 10 mg tablet Take 1 tablet (10 mg) by mouth once daily. fluticasone (Flonase) 50 mcg/actuation nasal spray As directed furosemide (Lasix) 20 mg tablet Take 1 tablet (20 mg) by mouth 2 times a day as needed. gabapentin (Neurontin) 300 mg capsule Take 1 capsule (300 mg) by mouth once daily. 300mg BID, and 600mg at bedtime lisinopril 2.5 mg tablet Take 1 tablet (2.5 mg) by mouth once daily. loratadine (Claritin) 10 mg tablet Take 1 tablet (10 mg) by mouth once daily. metoprolol succinate XL (Toprol-XL) 25 mg 24 hr tablet Take 1 tablet (25 mg) by mouth once daily. Do not crush or chew. omeprazole (PriLOSEC) [address] capsule Take 1 capsule (20 mg) by mouth once daily in the morning. Take before meals. traMADol (Ultram) 50 mg tablet Take 1 tablet (50 mg) by mouth 2 times a day as needed.documented as of this encounter Plan of Treatment DateTypeDepartmentCare Team (Latest Contact Info)Egjbcexqkab59/05/2025 11:00 AM ESTOffice Visit [facility] [address] [phone] [place] [address] [place] [address] 03/07/2025 11:30 AM ESTOffice Visit [facility] Cris [address] [phone] [place] [address] Department [place] [address] 09/14/2025 10:20 AM EDTOffice Visit [facility] [address] [place] [address] Harjeet Cheung MD [address] [facility] [address] [place] [address] documented as of this encounter Procedures Procedure NamePriorityDate/TimeAssociated DiagnosisCommentsTRANSTHORACIC ECHO (TTE) FNNJSEFKbmibbw86/20/2025 2:19 PM EDT Mitral valve insufficiency, unspecified etiology Left ventricular systolic dysfunction documented in this encounter Results * TRANSTHORACIC ECHO (TTE) LIMITED (02/19/2025 2:19 PM EDT)ComponentValueRef RangeTest MethodAnalysis TimePerformed AtPathologist SignatureLV Biplane EF62% SYNGOLVOT diam2.09cmSYNGOMV E/A ratio0.84SYNGOLA vol index A/L39.3ml/y2FQIOXGI EF43%SYNGOLVIDd4.24cmSYNGOLV A4C EF50.9SYNGOSpecimen (Source)Anatomical Location / LateralityCollection Method / VolumeCollection TimeReceived Time 02/19/2025 1:34 PM EDT Impressions SYNGO - 02/19/2025 4:37 PM EDT CONCLUSIONS: 1. Left ventricular ejection fraction is mildly decreased by visual estimate at 40-45%. 2. Spectral Doppler shows a Grade I (impaired relaxation pattern) of left ventricular diastolic filling with normal left atrial filling pressure. 3. Septal motion suggest conduction abnormalities. 4. There is normal right ventricular global systolic function. 5. Moderate to severe mitral valve regurgitation. Narrative [facility] - 02/19/2025 4:37 PM EDT ?[facility] [address] [place] [address], [address], [place], [place] [address] ? TRANSTHORACIC ECHOCARDIOGRAM REPORT Patient Name: ? RENUKA ENGLE ? Reading Physician: ?[id number] Harjeet ?IbrahimMD, FACC Study Date: ? 02/19/2025 ?Ordering Provider: ?[id number] HARJEET M ?CHEUNG MRN/PID: ?[id number] ?Fellow: Accession#: ? [id number] ?Nurse: Date of /Age: ??1950 / 74 years Barrel Burner: ?Светлана Annalee ?RDCS, RVT Gender Assigned at ??F ? Additional Staff: : Height: ? 154.94 cm ? Admit Date: Weight: ? 67.13 kg ?Admission Status: ? Outpatient BSA / BMI: ?1.66 m2 / 27.96 ? Department Location: ??[facility] ?kg/m2 ? Hui Blood Pressure: 116 /76 mmHg Study Type: ?TRANSTHORACIC ECHO (TTE) LIMITED Diagnosis/ICD: Nonrheumatic mitral (valve) insufficiency-I34.0; Other ill ? defined heart diseases-I51.89 Indication: ?Abnormal EKG-LBBB, HTN, Sepsis with Multiorgan Failure-10/2024, ? Overweight, CKD-Stage III CPT Codes: ? Echo Limited-96505 Study Detail: The following Echo studies were performed: 2D, M-Mode, Doppler and ?color flow. PHYSICIAN INTERPRETATION: Left Ventricle: Left ventricular ejection fraction is mildly decreased by visual estimate at 40-45%. The left ventricular cavity size is normal. There is mild increased septal and mildly increased posterior left ventricular wall thickness. There is left ventricular concentric remodeling. Spectral Doppler shows a Grade I (impaired relaxation pattern) of left ventricular diastolic filling with turner l left atrial filling pressure. Septal motion suggest conduction abnormalities. Left Atrium: The left atrial size is mildly dilated. Right Ventricle: The right ventricle is normal in size. There is normal right ventricular global systolic function. Right Atrium: The right atrial size is normal. Aortic Valve: The aortic valve is trileaflet. Aortic valve regurgitation was not assessed. Mitral Valve: The mitral valve is mildly thickened. The doppler estimated peak and mean diastolic gradients are 7 mmHg and 3 mmHg, respectively. There is moderate to severe mitral valve regurgitation. The E Vmax is 1.04 m/s. Tricuspid Valve: The tricuspid valve is structurally normal. Tricuspid regurgitation was not assessed. Pulmonic Valve: The pulmonic valve is structurally normal. The pulmonic valve regurgitation was notassessed. Pericardium: No pericardial effusion noted. Aorta: The aortic root is normal. Systemic Veins: The inferior vena cava was not assessed, IVC inspiratory collapse was not assessed. CONCLUSIONS: 1. Left ventricular ejection fraction is mildly decreased by visual estimate at 40-45%. 2. Spectral Doppler shows a Grade I (impaired relaxation pattern) of left ventricular diastolic filling with normal left atrial filling pressure. 3. Septal motion suggest conduction abnormalities. 4. There is normal right ventricular global systolic function. 5. Moderate to severe mitral valve regurgitation. QUANTITATIVE DATA SUMMARY: 2D MEASUREMENTS: ? Normal Ranges: Ao Root d: ? 2.80 cm ? (2.0-3.7cm) LAs: ? 3.17 cm ? (2.7-4.0cm) RVIDd: ? 3.22 cm ? (0.9-3.6cm) IVSd: ?1.09 cm ? (0.6-1.1cm) LVPWd: ? 0.97 cm ? (0.6-1.1cm) LVIDd: ? 4.24 cm ? (3.9-5.9cm) LVIDs: ? 3.12 cm LV Mass Index: ?? 87.2 g/m2 LVEDV Index: ? 39.14 ml/m2 LV % FS ?26.5 % LEFT ATRIUM: ? Normal Ranges: LA Vol A4C: ? 56.5 ml ?(22+/-6mL/m2) LA Vol A2C: ? 68.6 ml LA Vol BP: ?65.3 ml LA Vol Index A4C: 34.0ml/m2 LA Vol Index A2C: 41.3 ml/m2 LA Vol Index BP: ??39.3 ml/m2 LA Vol A4C: ? 53.0 ml LA Vol A2C: ? 65.0 ml LA Vol Index BSA: 35.5 ml/m2 LV SYSTOLIC FUNCTION: ? Normal Ranges: EF-A4C View: 51 % (>=55%) EF-A2C View: ?71 % EF-Biplane: ? 62 % EF-Visual: ?43 % LV EF Reported: 43 % LV DIASTOLIC FUNCTION: ?Normal Ranges: MV Peak E: ? 1.04 m/s (0.7-1.2 m/s) MV Peak A: ? 1.25 m/s (0.42-0.7 m/s) E/A Ratio: ? 0.84 ? (1.0-2.2) MITRAL VALVE: ?Normal Ranges: MV Vmax: 1.31 m/s (<=1.3m/s) MV peak P.9 mmHg (<5mmHg) MV mean P.8 mmHg (<48mmHg) MV VTI: ? 43.95 cm (10-13cm) MV DT: ?198 msec (150-240msec) MITRAL INSUFFICIENCY: ? Normal Ranges: MR VTI: ? 197.22 cm MR Vmax: ?496.01 cm/s dP/dt: 420 mmHg/s (>1200mmHg/sec) AORTIC VALVE: ?Normal Ranges: LVOT Diameter: 2.09 cm (1.8-2.4cm) AORTA: Asc Ao Diam 2.89 cm [id number] Harjeet Cheung MD, FACC Electronically signed on 02/19/2025 at 4:37:04 PM Final Procedure Note Harjeet Cheung MD - 02/19/2025 [facility] [address] [facility], [address], [place] [address] TRANSTHORACIC ECHOCARDIOGRAM REPORT Patient Name: RENUKA Dey DILCIA Rodriguez Physician: [id number] Cheung MD,[facility] Study Date: 02/19/2025 Ordering Provider: [id number] KAITLYN CHEUNG MRN/PID: [id number] Fellow: Nurse: Date of /Age: 8 1950 / 74 years Barrel Burner: Alberto RIZVI, RVT Gender Assigned at F Additional Staff: : Height: 154.94 cm Admit Date: Weight: 67.13 kg Admission Status: Outpatient BSA / BMI: 1.66 m2 / 27.96 Department Location: [facility] kg/m2 [place] Blood Pressure: 116 /76 mmHg Study Type: TRANSTHORACIC ECHO (TTE) LIMITED Diagnosis/ICD: Nonrheumatic mitral (valve) insufficiency-I34.0; Otherill defined heart diseases-I51.89 Indication: Abnormal EKG-LBBB, HTN, Sepsis with MultiorganFailure-10/2024, Overweight, CKD-Stage III CPT Codes: Echo Limited-20798 Study Detail: The following Echo studies were performed: 2D, M-Mode,Doppler and color flow. PHYSICIAN INTERPRETATION: Left Ventricle: Left ventricular ejection fraction is mildly decreased byvisual estimate at 40-45%. The left ventricular cavity size is normal.There is mild increased septal and mildly increased posterior leftventricular wall thickness. There is left ventricular concentricremodeling. Spectral Doppler shows a Grade I (impaired relaxation pattern)of left ventricular diastolic filling with normal left atrial fillingpressure. Septal motion suggest conduction abnormalities. Left Atrium: The left atrial size is mildly dilated. Right Ventricle: The right ventricle is normal in size. There is normalright ventricular global systolic function. Right Atrium: The right atrial size is normal. Aortic Valve: The aortic valve is trileaflet. Aortic valve regurgitationwas not assessed. Mitral Valve: The mitral valve is mildly thickened. The doppler estimatedpeak and mean diastolic gradients are 7 mmHg and 3 mmHg, respectively.There is moderate to severe mitral valve regurgitation. The E Vmax is 1.04m/s. Tricuspid Valve: The tricuspid valve is structurally normal. Tricuspid regurgitation was not assessed. Pulmonic Valve: The pulmonic valve is structurally normal. The pulmonicvalve regurgitation was not assessed. Pericardium: No pericardial effusion noted. Aorta: The aortic root is normal. Systemic Veins: The inferior vena cava was not assessed, IVC inspiratorycollapse was not assessed. CONCLUSIONS: 1. Left ventricular ejection fraction is mildly decreased by visualestimate at 40-45%. 2. Spectral Doppler shows a Grade I (impaired relaxation pattern) of left ventricular diastolic filling with normal left atrial filling pressure. 3. Septal motion suggest conduction abnormalities. 4. There is normal right ventricular global systolic function. 5. Moderate to severe mitral valve regurgitation. QUANTITATIVE DATA SUMMARY: 2D MEASUREMENTS: Normal Ranges: Ao Root d: 2.80 cm (2.0-3.7cm) LAs: 3.17 cm (2.7-4.0cm) RVIDd: 3.22 cm (0.9-3.6cm) IVSd: 1.09 cm (0.6-1.1cm) LVPWd: 0.97 cm (0.6-1.1cm) LVIDd: 4.24 cm (3.9-5.9cm) LVIDs: 3.12 cm LV Mass Index: 87.2 g/m2 LVEDV Index: 39.14 ml/m2 LV % FS 26.5 % LEFT ATRIUM: Normal Ranges: LA Vol A4C: 56.5 ml (22+/-6mL/m2) LA Vol A2C: 68.6 ml LA Vol BP: 65.3 ml LA Vol Index A4C: 34.0ml/m2 LA Vol Index A2C: 41.3 ml/m2 LA Vol Index BP: 39.3 ml/m2 LA Vol A4C: 53.0 ml LA Vol A2C: 65.0 ml LA Vol Index BSA: 35.5 ml/m2 LV SYSTOLIC FUNCTION: Normal Ranges: EF-A4C View: 51 % (>=55%) EF-A2C View: 71 % EF-Biplane: 62 % EF-Visual: 43 % LV EF Reported: 43 % LV DIASTOLIC FUNCTION: Normal Ranges: MV Peak E: 1.04 m/s (0.7-1.2 m/s) MV Peak A: 1.25 m/s (0.42-0.7 m/s) E/A Ratio: 0.84 (1.0-2.2) MITRAL VALVE: Normal Ranges: MV Vmax: 1.31 m/s (<=1.3m/s) MV peak P.9 mmHg (<5mmHg) MV mean P.8 mmHg (<48mmHg) MV VTI: 43.95 cm (10-13cm) MV DT: 198 msec (150-240msec) MITRAL INSUFFICIENCY: Normal Ranges: MR VTI: 197.22 cm MR Vmax: 496.01 cm/s dP/dt: 420 mmHg/s (>1200mmHg/sec) AORTIC VALVE: Normal Ranges: LVOT Diameter: 2.09 cm (1.8-2.4cm) AORTA: Asc Ao Diam 2.89 cm [id number] Harjeet Cheung MD, FACC Electronically signed on 02/19/2025 at 4:37:04 PM Final IMPRESSION: CONCLUSIONS: 1. Left ventricular ejection fraction is mildly decreased by visualestimate at 40-45%. 2. Spectral Doppler shows a Grade I (impaired relaxation pattern) of left ventricular diastolic filling with normal left atrial filling pressure. 3. Septal motion suggest conduction abnormalities. 4. There is normal right ventricular global systolic function. 5. Moderate to severe mitral valve regurgitation. Authorizing ProviderResult TypeResult StatusHajessica Cheung [facility] ECHO PROCEDURESFinal ResultPerforming OrganizationAddressCity/State/ZIP CodePhone Number SYNGO documented in this encounter Visit Diagnoses Diagnosis Mitral valve insufficiency, unspecified etiology Left ventricular systolic dysfunction documented in this encounter Additional Health Concerns AssessmentNoted TimeA fall risk assessment has been completed for the patient 01/30/2025 9:25 AM EDTdocumented as of this encounter Care Teams Team MemberRelationshipSpecialtyStart DateEnd Date Mervin Chanel DO [address] [place] [address] PCP - GeneralInternal Medicine01/05/24documented as of this encounter
--- OUTSIDE RECORDS SUMMARY | 2025-03-02 10:52 | XMS_ITS | Encounter Summary ---
Author Organization [facility] Address [address] [place] [address] Phone Care Team Providers Care Customer Service Trainer Name Role Phone Mervin Chanel Primary Care Provider [phone] Reason for Visit * ReasonOnset DateCommentsreminder lab work needed prior appt on 03-07-25 02/28/2025 Encounter Details DateTypeDepartmentCare Team (Latest Contact Info)Fguanyyhmig05/29/2025Telephone [place] [facility] [address] [place] [address] Liliam Escalante RN reminder lab work needed prior appt on 03-07-25 Social History Tobacco UseTypesPacks/DayYears UsedDateSmoking Tobacco: NeverSmokeless Tobacco: NeverAlcohol UseStandard Drinks/WeekCommentsYes0 (1 standard drink = 0.6 oz pure alcohol)rarelyCommentsNoSex and Gender InformationValueDate RecordedSex Assigned at CirgzRavhfq44/31/2023 2:42 PM EDTLegal LgrGmccqc10/26/2022 2:47 PM ESTGender WfzpwobjWkihyj27/31/2023 2:42 PM EDTSexual OrientationNot on file documented as of this encounter Miscellaneous Notes * Telephone Encounter - Liliam Escalante RN - 02/28/2025 9:19 AM EDT Called & notified pre-appointment lab work needed. She will go to [facility] today to have drawn. Requisition faxed on 02-26-25. documented in this encounter Plan of Treatment DateTypeDepartmentCare Team (Latest Contact Info)Kjiltsfazvl84/05/2025 11:00 AM ESTOffice Visit [facility] [address] [facility] [address] [place] [address] [place] [address] [place] [address] 03/07/2025 11:30 AM ESTOffice Visit [facility] [address] [facility] [address] [place] [address] [place] [address] Department [place] [address] 09/14/2025 10:20 AM EDTOffice Visit [place] [address] [place] [address] Bryce Cheung MD [address] [facility] 2, [address] [place] [address] documented as of this encounter Visit Diagnoses Not on filedocumented in this encounter Additional Health Concerns AssessmentNoted TimeA fall risk assessment has been completed for the patient 01/30/2025 9:25 AM EDTdocumented as of this encounter Care Teams Team MemberRelationshipSpecialtyStart DateEnd Date Mervin Chanel, [address] [place] [address] PCP - GeneralInternal Medicine01/05/24documented as of this encounter
--- OUTSIDE RECORDS SUMMARY | 2025-03-02 10:52 | XMS_ITS | Encounter Summary ---
Author Organization [facility] Address [address] [place] [address] Phone Care Team Providers Care Manager Risk Management Name Role Phone Mervin Chanel Primary Care Provider [phone] Encounter Details DateTypeDepartmentCare Team (Latest Contact Info)Smbjbzwvstl15/27/2025Orders Only [facility] [address] [place] [address] Liliam Escalante RN Nonrheumatic mitral valve regurgitation (Primary Dx) Social History Tobacco UseTypesPacks/DayYears UsedDateSmoking Tobacco: NeverSmokeless Tobacco: NeverAlcohol UseStandard Drinks/WeekCommentsYes0 (1 standard drink = 0.6 oz pure alcohol)rarelyCommentsNoSex and Gender InformationValueDate RecordedSex Assigned at ZxsrnIiodjs46/31/2023 2:42 PM EDTLegal CviHwuiah95/26/2022 2:47 PM ESTGender IrnprzluPpecee98/31/2023 2:42 PM EDTSexual OrientationNot on file documented as of this encounter Plan of Treatment DateTypeDepartmentCare Team (Latest Contact Info)Hmdepvnlxsj67/05/2025 11:00 AM ESTOffice Visit [facility] [address] [place] [address] [place] [address] [place] [address] [place] [address] 03/07/2025 11:30 AM ESTOffice Visit [facility] [place] [address] [place] [address] [place] [address] [place] [address] Department [place] [address] 09/14/2025 10:20 AM EDTOffice Visit [place] [address] [place] [address] Bryce Cheung MD [address] [facility] 2, [address] [place] [address] NameTypePriorityAssociated DiagnosesOrder ScheduleCBCLabRoutine Nonrheumatic mitral [...] DateEnd Date Mervin Chanel, [address] [place] [address] PCP - GeneralInternal Medicine01/05/24documented as of this encounter
--- OUTSIDE RECORDS SUMMARY | 2025-03-02 10:52 | XMS_ITS | Encounter Summary ---
Author Organization [facility] Address [address] [place] [address] Phone Care Team Providers Care State Game Protector Name Role Phone Mervin Chanel Primary Care Provider [phone] Reason for Visit * ReasonOnset DateCommentsreturn call02/23/2025 Encounter Details DateTypeDepartmentCare Team (Latest Contact Info)Pqemjnlnkih60/24/2025Telephone [facility] [place] [address] [place] [address] [place] [phone] Liliam Escalante RN return call Social History Tobacco UseTypesPacks/DayYears UsedDateSmoking Tobacco: NeverSmokeless Tobacco: NeverAlcohol UseStandard Drinks/WeekCommentsYes0 (1 standard drink = 0.6 oz pure alcohol)rarelyCommentsNoSex and Gender InformationValueDate RecordedSex Assigned at DoklxTvepxp18/31/2023 2:42 PM EDTLegal KwiYejdlx50/26/2022 2:47 PM ESTGender LhlqwpxuHhjzmw65/31/2023 2:42 PM EDTSexual OrientationNot on file documented as of this encounter Miscellaneous Notes * Telephone Encounter - Liliam Escalante RN - 02/23/2025 11:48 AM EDT Called & appointments requested. documented in this encounter Plan of Treatment DateTypeDepartmentCare Team (Latest Contact Info)Lxoiiwjivda67/05/2025 11:[address] [facility] [address] [facility] [address] [place] [address] [place] [address] [place] [address] 03/07/2025 11:[address] [facility] [address] [facility] [address] [place] [address] [place] [address] Department [place] [address] 09/14/2025 10:20 AM EDTOffice Visit [place] [address] [place] [address] Bryce Cheung MD [address] [facility] [address], [address] [place] [address] documented as of this encounter Visit Diagnoses Not on filedocumented in this encounter Additional Health Concerns AssessmentNoted TimeA fall risk assessment has been completed for the patient 01/30/2025 9:25 AM EDTdocumented as of this encounter Care Teams Team MemberRelationshipSpecialtyStart DateEnd Date Mervin Chanel DO [address] [place] [address] PCP - GeneralInternal Medicine01/05/24documented as of this encounter
--- NOTE | 2025-03-02 10:53 | MM_ITS ---
Patient Name: JOHN ENGLE MR#: [id number] : 1950 Exam Date: 03/02/2025 Ordering Doctor: DR SYLVESTER JACOB D.O. RADIOLOGY REPORT PROCEDURE: MM SCREENING MAMMO UNILAT RT COMPARISON: MM TOMOSYNTHESIS DIAGNOSTIC RT, 02/14/2024. MM TOMOSYNTHESIS DIAGNOSTIC RT, 02/08/2023. INDICATIONS: screening Calculator Name NCI Breast Cancer Risk Assessment Tool 5 Year Breast Cancer Risk n/a% Lifetime Breast Cancer Risk n/a% Personal Breast Cancer Yes, Left breast cancer 2012 Personal Ovarian Cancer No Treatments Left mastectomy, radiation, dvnvcinakujn06 Family Cancers Father with testicular cancer at age 27. LOCATION: [facility] BREAST COMPOSITION: There are scattered areas of fibroglandular density. FINDINGS: RIGHT BREAST: No significant suspicious finding. There is a right-sided breast implant which is unchanged. The implant is intact. Benign-appearing calcifications are noted. Similar focal asymmetries are noted in the retroareolar region. DIAGNOSTIC CATEGORY 2--BENIGN FINDING. NO CHANGE FROM COMPARISON. RECOMMENDATIONS: ROUTINE MAMMOGRAM AND CLINICAL EVALUATION IN 12 MONTHS. Dictated by: Stalin Patterson MD on 03/06/2025 at 10:41 Approved by: Stalin Patterson MD on 03/06/2025 at 10:42
--- OUTSIDE RECORDS SUMMARY | 2025-03-02 10:54 | XMS_ITS | Clinical Summary ---
Author Organization [facility] Address [address] [facility] [place] [address] Care Team Providers Care Tape Recorder Repairer Name Role Phone Unavailable Primary Care Provider Unavailabl e Source Comments The following information is NOT included in Care Everywhere downloads:Psychiatric notes, ECG results, Cardiac Rehab notes, Pulmonary Function notes, data from [employer] (includes but not limited toPregnancy data,audiograms, eye exams, pre-surgical evaluation notes, well-child exam data).[facility] Social History Tobacco UseTypesPacks/DayYears UsedDateSmoking Tobacco: Never Assessed CommentsUnknownSex and Gender InformationValueDate RecordedSex Assigned at Not on fileLegal ZxaAbgwxl60/21/2023 12:36 PM ESTGender IdentityNot on file Sexual OrientationNot on file Last Filed Vital Signs Vital SignReadingTime TakenCommentsBlood Yzrhjwbv268/6511 6:00 AM EDT Fnoae8633 6:00 AM EDTTemperature--Respiratory Rate--Oxygen Qyrrucxfdb71% 03/06/2023 6:00 AM EDTInhaled Oxygen Concentration--Weight--Height--Body Mass Index-- Plan of Treatment Health MaintenanceDue DateLast VlehNxomjczlKypcokcdpnr34/06/1950Hepatitis C Buntjypu80/06/1968Tdap Vqizblu2212/07/1967Hepatitis A (HAV) Vaccine (optional start 19+ years)12/06/19687919Bssvexgcvub88/06/1990CRC Vyufuvrxh37/06/1995 Vomsdczzmnf94/06/1995Cologuard (Stool DNA)1994FIT1994Pneumococcal Vaccine(s) (50+ yrs) (1 of 1 - PCV)12/07/1999Shingles (RZV) Vaccine (1 of 2) 12/07/1999Hepatitis B (HBV) Vaccine (optional start 60+ years)08/06/2010Bone Slkiwlevgkcm92/06/2015nnual Wellness Visit (G0438)12/02/2015RSV vaccine (adult) (1 - 1-dose 75+ series)2024OVID-19 Vaccine (2024- season)2025 Influenza Vaccine (#1)2025Pap SmearDiscontinued Insurance
--- OUTSIDE RECORDS SUMMARY | 2025-03-02 10:54 | XMS_ITS | Clinical Summary ---
Author Organization [facility] Address [address] [place] [address] Phone Care Team Providers Care Pododermatologist Name Role Phone Mervin Chanel DO Primary Care Provider [phone] Allergies Active AllergyReactionsCriticalityNoted DateCommentsAtorvastatinHives,RashLow 02/28/20234760NcxngglfevfMkiwqNuqvfm39/29/0359Ednmihb-Nzb-Wup Reductase Inhibitors GqmymTrxqyk60/29/2023 Medications MedicationSigDispense QuantityRefillsLast FilledStart DateEnd DateStatus baclofen [...] tablet (10 mg) by mouth once daily.Active Active Problems ProblemNoted DateDiagnosed DateNever smoked jjrqyor9307/15/2023Left ventricular systolic uxmgnnnrpys45/16/1023Cusxs81/31/2027Zgzzjc77/29/2023Essential aublpzauqfvs70/29/2023LBBB (left bundle branch block)02/28/2023Mitral loskqskiapxsk96/29/2023hest pain02/28/2023MI 28.0-28.9,adult02/28/2023 Encounters DateTypeDepartmentCare UuwpSfqvwiaxyuf72/29/2025Scanned Document [facility] [address] [place] [address] Scanning, Generic Provider 02/28/2025Telephone [facility] [address] [facility] [address] [place] [address] Liliam Escalante RN reminder lab work needed prior appt on 03-07-2510Orders Only [facility] [address] Cris [facility] [address] [place] [address] Liliam Escalante RN Nonrheumatic mitral valve regurgitation (Primary Dx)02/23/2025Telephone [facility] [place] [address] [place] [address] [place] [address] Liliam Escalante RN return call02/22/2025Telephone [facility] [place] [address] [place] [address] [place] [address] Liliam Escalante RN Structural Heart kbaiqnzr92/21/2025Results Follow-Up [facility] [address] [phone] Rissa Luna LPN Transthoracic Echo Qxwlkay6302/19/2025 1:16 PM EDT - 02/19/2025 11:59 PM EDT Hospital Encounter [facility] [address] [place] [address] Mitral valve insufficiency, unspecified etiology; Left ventricular systolic dysfunction Discharge Disposition: Home02/19/20255263Lbqtqa63/30/2025 9:30 AM EDTOffice Visit [place] [address] [place] [address] Harjeet Cheung MD Mitral valve insufficiency, unspecified etiology (Primary Dx); Left ventricular systolic dysfunction; Essential hypertension; LBBB (left bundle branch block); BMI 28.0-28.9,adult; Never smoked tobacco; Stage 3a chronic kidney disease (Multi) Discharge Disposition: Home01/30/20252127Cbxgnx74/11/2025Scanned Document [facility] [address] [place] [address] Scanning, Generic Provider 12/01/2024Scanned Document [facility] [address] [place] [address] Scanning, Generic Provider from Last 3 Months Immunizations ImmunizationAdministration DatesNext DueFlu vaccine (IIV4), preservative free *Check age/dose*02/17/2019Flu vaccine, quadrivalent, high-dose, preservative free, age 65y+ (FLUZONE)01/28/2021Flu vaccine, trivalent, preservative free, HIGH-DOSE, age 65y+ (Fluzone)01/29/2020,02/17/2018,02/02/2017,05/03/2010, 05/03/2009Influenza, Seasonal, Quadrivalent, Gbwyyhyxdd95/22/2023,01/14/2022 Influenza, Zvthifwfnjp89/01/2017,12/02/2015,01/31/2015,01/31/2014,05/03/2006 Influenza, injectable, /01/2016Moderna SARS-CoV-2 Vaccination 3Pfizer COVID-19 vaccine, 12 years and older, (30mcg/0.3mL) (Comirnaty) 3Pfizer COVID-19 vaccine, bivalent, age 12 years and older (30 mcg/0.3 mL)2Pfizer Vargas Cap COKH-JvS-463/28/2022Pneumococcal conjugate vaccine, 13-valent (PREVNAR 13)05/11/2022,12/30/2016Pneumococcal polysaccharide vaccine, 23-valent, age 2 years and older (PNEUMOVAX 23)07/20/2020,02/08/2017,05/03/2015, 05/03/2013,01/31/2013Zoster vaccine, recombinant, adult (SHINGRIX)05/27/2020, 02/28/2020 Family History Medical HistoryRelationNameCommentsNo Known ProblemsFatherNo Known Problems MotherRelationNameStatusCommentsFatherMother Social History Tobacco UseTypesPacks/DayYears UsedDateSmoking Tobacco: NeverSmokeless Tobacco: Never Tobacco Cessation:Counseling Given: Not Answered Alcohol UseStandard Drinks/WeekCommentsYes0 (1 standard drink = 0.6 oz pure alcohol)rarelyCommentsNoSex and Gender InformationValueDate RecordedSex Assigned at FhmzfRwtozk57/31/2023 2:42 PM EDTLegal CnnOwkbaq88/26/2022 2:47 PM ESTGender VajjmkanOtiyuf74/31/2023 2:42 PM EDTSexual OrientationNot on file Last Filed Vital Signs Vital SignReadingTime TakenCommentsBlood Qdeaynjr013/7610 1:36 PM EDT Coefb3777 9:30 AM EDTTemperature--Respiratory Rate--Oxygen Saturation-- Inhaled Oxygen Concentration--Pvmcof92.1 kg (148 lb)02/19/2025 1:36 PM EDTHeight 154.9 cm (5' 1 )02/19/2025 1:36 PM EDTBody Mass Index27.9602/19/2025 1:36 PM EDT Plan of Treatment DateTypeDepartmentCare Team (Latest Contact Info)Wymuyfrrycl78/05/2025 11:00 AM ESTOffice Visit [facility] [address] [facility] [address] [place] [address] [place] [address] [place] [address] 03/07/2025 11:30 AM ESTOffice Visit [facility] [place] [address] [facility] [address] [place] [address] [place] [address] Department [place] [address] 09/14/2025 10:20 AM EDTOffice Visit [place] [address] [place] [address] Harjeet Cheung MD [address] [facility] [address], [address] [place] [address] Health MaintenanceDue DateLast DoneCommentsCT Nkunavesbkis57/06/1950Colonoscopy 1950Colorectal Cancer Lofhidhoq08/06/1950FIT-DNA (Cologuard)1950FIT 1950Lipid Panel1950 8632Naoohcghtgejp90/06/1950MMR Vaccines (1 of 1 - Standard series)1Diabetes Dhpqjspql01/06/1968Hepatitis C Screening 12/07/1967CKD: Urine Protein Plmliolgi87/06/1969Creatinine Level07/22/2008 07/23/2007Potassium LevelDTaP/Tdap/Td Vaccines (1 - Tdap) Medicare Annual Wellness Visit (AWV)/10/2022, 01/14/2022, 11/20/2020, Additional history existsRSV High Risk: (Elderly (60+) or Population) (1 - 1-dose 75+ series)5COVID-19 Vaccine ( - 2024- season)5001/22/2023, 05/10/2022, 02/25/2022, Additional history existsBone Density Scan5001/28/2023, 12/09/2020, 11/09/2018, Additional history ogokkxTayiazzsgwrdxm63/20/415380, 11/13/2024, 01/18/2024, Additional history existsZoster KdapjdvvKqlnhsxol00/25/2021, 02/28/2020, 01/31/2014Pneumococcal LboyzlgJjkyfppju55/09/2023, 07/20/2020, 02/08/2017, Additional history existsInfluenza BmwmxjnQvaqdxfwt21/15/2025, 02/25/2024, 01/22/2023, Additional history existsHIB VaccinesAged OutNo [...] to complete this topic Procedures Procedure NamePriorityDate/TimeAssociated DiagnosisCommentsOUTSIDE LAB SCAN 02/28/2025 TRANSTHORACIC ECHO (TTE) OMXDSDGQnplqvh65/20/2025 2:19 PM EDT Mitral valve insufficiency, unspecified etiology Left ventricular systolic dysfunction from Last 3 Months Results * OUTSIDE LAB SCAN (02/28/2025) Narrative 02/28/2025 Ordered by an unspecified provider. Authorizing ProviderResult TypeResult StatusGeneric Provider ScanningOUTSIDE SCANFinal Result * TRANSTHORACIC ECHO (TTE) LIMITED (02/19/2025 2:19 PM EDT)ComponentValueRef RangeTest MethodAnalysis TimePerformed AtPathologist SignatureLV Biplane EF62% SYNGOLVOT diam2.09cmSYNGOMV E/A ratio0.84SYNGOLA vol index A/L39.3ml/l5LDRZZSA EF43%SYNGOLVIDd4.24cmSYNGOLV A4C EF50.9SYNGOSpecimen (Source)Anatomical Location / LateralityCollection [...] Moderate to severe mitral valve regurgitation. Narrative [facility] - 02/19/2025 4:37 PM EDT ?[address], [place] [address] ? TRANSTHORACIC ECHOCARDIOGRAM REPORT Patient Name: ? RENUKA A DILCIA ? Reading Physician: ?[id number] Harjeet ?Inge, [facility] Study Date: ? 02/19/2025 ?Ordering Provider: ?[id number] HARJEET M ?MADHAVI MRN/PID: ?[id number] ?Fellow: Accession#: ? [id number] ?Nurse: Date of /Age: ??1950 / 74 years Mechanical Design Drafter: ?Светлана Mantilla ?RDCS, RVT Gender Assigned at ??F ? Additional Staff: : Height: ? 154.94 cm ? Admit Date: Weight: ? 67.13 kg ?Admission Status: ? Outpatient BSA / BMI: ?1.66 m2 / 27.96 ? Department Location: ??[facility] ?kg/m2 ? [place] Blood Pressure: 116 /76 mmHg Study Type: ?TRANSTHORACIC ECHO (TTE) LIMITED Diagnosis/ICD: Nonrheumatic mitral (valve) insufficiency-I34.0; Other ill ? defined heart diseases-I51.89 Indication: ?Abnormal EKG-LBBB, HTN, Sepsis with Multiorgan Failure-10/2024, ? Overweight, CKD-Stage III CPT Codes: ? Echo Limited-98740 Study Detail: The following Echo studies were [...] (1.8-2.4cm) AORTA: Asc Ao Diam 2.89 cm [id number] Harjeet Cheung MD, [facility] Electronically signed on 02/19/2025 at 4:37:04 PM Final Procedure Note Harjeet Cheung MD - 02/19/[address], [address] [place] [address] TRANSTHORACIC ECHOCARDIOGRAM REPORT Patient Name: RENUKA Dey DILCIA Rodriguez Physician: [id number] Cheung MD,FAC Study Date: 02/19/2025 Ordering Provider: [id number] KAITLYN CHEUNG MRN/PID: [id number] Fellow: Nurse: Date of /Age: 8 1950 / 74 years Mechanical Design Drafter: Alberto RIZVI RVT Gender Assigned at F Additional Staff: : Height: 154.94 cm Admit Date: Weight: 67.13 kg Admission Status: Outpatient BSA / BMI: 1.66 m2 / 27.96 Department Location: [facility] kg/m2 [place] Blood Pressure: 116 /76 mmHg Study Type: TRANSTHORACIC ECHO (TTE) LIMITED Diagnosis/ICD: Nonrheumatic mitral (valve) insufficiency-I34.0; Otherill defined heart diseases-I51.89 Indication: Abnormal EKG-LBBB, HTN, Sepsis with MultiorganFailure-10/2024, Overweight, CKD-Stage III CPT Codes: Echo Limited-76784 Study Detail: The following Echo studies were [...] (1.8-2.4cm) AORTA: Asc Ao Diam 2.89 cm [id number] Harjeet Cheung MD, FACC Electronically signed on [...] severe mitral valve regurgitation. Authorizing ProviderResult TypeResult StatusBolivarjessica Cheung [facility] ECHO PROCEDURESFinal ResultPerforming OrganizationAddressCity/State/ZIP CodePhone Number SYNGO from Last 3 Months Insurance Care Teams Team MemberRelationshipSpecialtyStart DateEnd Date Mervin Chanel DO [address] [place] [address] PCP - GeneralInternal Medicine01/05/24
--- OUTSIDE RECORDS SUMMARY | 2025-03-02 10:55 | XMS_ITS | Encounter Summary ---
Author Organization [facility] Address [address] [place] [address] Phone Care Team Providers Care Professor Of Surgery Name Role Phone Mervin Chanel Galo FENG Primary Care Provider [phone] Encounter Details DateTypeDepartmentCare Team (Latest Contact Info)Cnncfrozpyh62/20/2025Travel Social History Tobacco UseTypesPacks/DayYears UsedDateSmoking Tobacco: NeverSmokeless Tobacco: NeverAlcohol UseStandard Drinks/WeekCommentsYes0 (1 standard drink = 0.6 oz pure alcohol)rarelyCommentsNoSex and Gender InformationValueDate RecordedSex Assigned at TflupNlvxmk65/31/2023 2:42 PM EDTLegal NctKnjain09/26/2022 2:47 PM ESTGender WnhwaztiDhfzow19/31/2023 2:42 PM EDTSexual OrientationNot on file documented as of this encounter Functional Status * BPAnswerDate of WqrrnhwaocQrozfb136/7602/19/2025 1:36 PM Светлана Alvarado, RVT * Communicable Disease ScreeningQuestionAnswerDate of AssessmentAuthorDo you have any of the following new or worsening symptoms?None of these02/19/2025 1:16 PM Jaqueline Garcia documented as of this encounter Plan of Treatment DateTypeDepartmentCare Team (Latest Contact Info)Ynwkwmdpknw44/05/2025 11:00 AM ESTOffice Visit [facility] [address] [facility] [address] [place] [address] [place] [address] [place] [address] 03/07/2025 11:30 AM ESTOffice Visit [facility] [address] [facility] [address] [place] [address] [place] [address] Department [place] [address] 09/14/2025 10:20 AM EDTOffice Visit [place] [address] [place] [address] Bryce Cheung MD [address] [facility] [address], [address] [place] [address] documented as of this encounter Visit Diagnoses Not on filedocumented in this encounter Additional Health Concerns AssessmentNoted TimeA fall risk assessment has been completed for the patient 01/30/2025 9:25 AM EDTdocumented as of this encounter Care Teams Team MemberRelationshipSpecialtyStart DateEnd Date Mervin Chanel, [address] [place] [address] PCP - GeneralInternal Medicine01/05/24documented as of this encounter
--- OUTSIDE RECORDS SUMMARY | 2025-03-02 10:55 | XMS_ITS | Patient Health Record ---
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) ActiveconfirmedProblemLocalized, primary osteoarthritis of the ankle and/or foot (240292517)Primary osteoarthritis, left ankle and foot (M19.072)Activeconfirmed Plan Of Treatment No Information Insurance Providers Payer Name Payer Address Payer Phone Subscriber Number Group Number Insured Name Patient Relationship to Insured Coverage Start Date Coverage End Date MEDICARE RAILROAD [address] [address] [facility] [place] [place] [id number] BraydenGabi aguilarelf [place] [address] [id number], DeborahSelf - patient is the insured Medical (General) History Medical History History ICD Code arthritis hx of breast cancerheart diseasehypertensionSurgical History Surgery Date(Month/Year) cholecystectomy back surgeries i5upjchhyjdbhsvssnzfderpwqjtpeufun massknee replacement d8qnsistf cuff
--- OUTSIDE RECORDS SUMMARY | 2025-03-02 10:55 | XMS_ITS | Encounter Summary ---
Author Organization [facility] Address [address] [place] [address] Phone Care Team Providers Care Bobbin Drier Name Role Phone Mervin Chanel Primary Care Provider [phone] Encounter Details DateTypeDepartmentCare Team (Latest Contact Info)Ybwndmysgxi91/29/2025Scanned Document [facility] [address] [place] [address] Scanning, Generic Provider Social History Tobacco UseTypesPacks/DayYears UsedDateSmoking Tobacco: NeverSmokeless Tobacco: NeverAlcohol UseStandard Drinks/WeekCommentsYes0 (1 standard drink = 0.6 oz pure alcohol)rarelyCommentsNoSex and Gender InformationValueDate RecordedSex Assigned at PwucwShfzcu56/31/2023 2:42 PM EDTLegal ZliFqorjk69/26/2022 2:47 PM ESTGender JfictmaiVtomac82/31/2023 2:42 PM EDTSexual OrientationNot on file documented as of this encounter Plan of Treatment DateTypeDepartmentCare Team (Latest Contact Info)Jemjoloukoo58/05/2025 11:00 AM ESTOffice Visit [facility] [address] [place] [address] [place] [address] [place] [address] 03/07/2025 11:30 AM ESTOffice Visit [facility] [address] [place] [address] [place] [address] [place] [address] Department [place] [address] 09/14/2025 10:20 AM EDTOffice Visit [place] [address] [place] [address] Bryce Cheung MD [address] [facility] 2, [address] [place] [address] documented as of this encounter Procedures Procedure NamePriorityDate/TimeAssociated DiagnosisCommentsOUTSIDE LAB SCAN 02/28/2025 documented in this encounter Results * OUTSIDE LAB SCAN (02/28/2025) Narrative 02/28/2025 Ordered by an unspecified provider. Authorizing ProviderResult TypeResult StatusGeneric Provider ScanningOUTSIDE SCANFinal Result documented in this encounter Visit Diagnoses Not on filedocumented in this encounter Additional Health Concerns AssessmentNoted TimeA fall risk assessment has been completed for the patient 01/30/2025 9:25 AM EDTdocumented as of this encounter Care Teams Team MemberRelationshipSpecialtyStart DateEnd Date Mervin Chanel DO [address] [place] [address] PCP - GeneralInternal Medicine01/05/24documented as of this encounter
--- OUTSIDE RECORDS SUMMARY | 2025-03-02 10:55 | XMS_ITS | Clinical Summary ---
Author Organization [facility] Address [address] [place] [address] Care Team Providers Care Coarse Wire Drawer Name Role Phone DaríoMervin Galo FENG Primary Care Provider [phone] Allergies Active AllergyReactionsCriticalityNoted DateCommentsAtorvastatin CalciumItching Aaxyfv4203/05/20114356KjnshsqpzxqFrtnaYqyz67/03/2011 Medications MedicationSigDispense QuantityRefillsLast FilledStart DateEnd DateStatus fluticasone [...] labs ordered by surgeon. History of breast dmhzwp2610/09/2014Neuropathy due to chemotherapeutic drug 03/30/2012 Assessment & Plan (06/03/2020 12:54 PM EST): Assessment: on Gabapentin tid Breast cnggvm9303/30/2012 Cancer Staging: Clinical: Unsigned Pathologic:ER -, DE - , HER2 -(T2, N2) - Unsigned Breast cancer, left breastHypercholesteremiaHypertension Assessment & Plan (06/03/2020 12:53 PM EST): Assessment: on Coreg and hctz. BP today 136/90 OsteoarthritisBundle branch block, left Assessment & Plan (06/03/2020 12:54 PM EST): Assessment: chronic. [facility] at [facility] Mild depressionS/P left mastectomy Resolved Problems ProblemNoted [...] (AFLURIA, FLULAVAL, FLUZONE)04/02/2016influenza (LAIV) vaccine, nasal, unspecified mabastyeeik16/14/2022,01/31/2020,02/02/2019,05/05/2016influenza (aIIV4) vaccine, age 65+ yr, quadrivalent, PF [...] = 0.6 oz pure alcohol)very seldomPHQ-2AnswerDate RecordedPHQ-2 nmpdc1684Area Deprivation IndexAnswerDate RecordedNational Score (1-100), lower number is lower ycgb840805/18/2023State Score (1-10), lower number is lower eebo17005/18/2023 Data from: https://www.neighborhoodatlas.[facility].edu/. Last address used for [address] [facility]4CommentsNoSex and Gender InformationValueDate RecordedSex Assigned at BirthNot on fileLegal SexFemale 04/03/2012 9:57 AM ESTGender IdentityNot on fileSexual OrientationNot on file Last Filed Vital Signs Vital SignReadingTime TakenCommentsBlood Pjbhtwdu486/5704 11:04 AM EDT Hewaf5515 11:04 AM BLWTtrwivvzshp51.3 ??C (97.4 ??F)08/21/2024 11:04 AM EDTRespiratory Mnjs240808/21/2024 11:04 AM EDTOxygen Npxqxgxwvf87%08/21/2024 11:04 AM EDTInhaled Oxygen Concentration--Lufrfj86.7 kg (164 lb 10.9 oz)08/21/2024 11:04 AM KKLWifgev474.5 cm (5' 2.01 )06/22/2023 1:28 PM ESTBody Mass Index30.11 06/22/2023 1:28 PM EST Plan of Treatment Health MaintenanceDue DateLast DoneCommentsAnnual PCP Team Chronic Disease Visit 12/07/1967Anxiety Jvodotrzq91/06/1968Hepatitis C Zpanzgtph02/06/1968CT Kzmylqqfcaab46/06/1995Cologuard (FIT-DNA)12/06/19949332Iypfdlsblgt82/06/1995 Colorectal Cancer Ihyshjskf1995Fecal Occult Blood1994Lipid Screening 12/06/19942778Wdjrvgxqyuenm87/06/1995DTaP,Tdap,Td Vaccine (1 - Tdap)02/22/2014 02/21/2014Medicare Annual Wellness Visit12/01/2014Bone Density Screening 2014dvance Directive Lmemjguakn33/01/2025RSV Vaccine (1 - 1-dose 75+ series)2024ovid-19 Vaccine ( season)5001/22/2023, 05/10/2022, 02/25/2022, Additional history existsInfluenza Vaccine (#1) 51, 01/22/2023, 01/14/2022, Additional history exists Hemoglobin/Ghstmgekdb00/21/868555/, 06/22/2023, 05/19/2022, Additional history existsSerum Furnnpqisa48/21/620186/, 06/22/2023, 05/19/2022, Additional history existsDiabetes Sjagzzcqr75/21/788905/, 06/22/2023, 05/19/2022, Additional history existsShingrix DjupmfmNweexlibg87/25/2021, 05/27/2020, 02/28/2020, Additional history existsPneumococcal Vaccine: 50+ Htxrmigcm45/09/2023, 07/20/2020, 02/08/2017, Additional history exists Medical Devices ImplantedTypeAreaManufacturerDevice [facility] Expiration DateModel / Serial / JbmGea-Gv-Q-Kind Implant - [id number] Implanted:Qty: 1 on 06/26/2011 at [facility] A BUILDINGImplantLeft: BreastMENTOR JOAN [id number] / / [id number]:Bovey CPX3 Med Height Tissue MzfqkvluTgu-Qh-Q-Kind Implant - [id number] Implanted:Qty: 1 on 04/08/2012 at [facility] A BUILDINGImplantRight: BreastALL[employer] INC 11/07/201510-210 / [id number] / N/ADescription:Emma Silicone Filled Breast PhhzqhmOgt-Su-K-Kind Implant - [id number] Implanted:Qty: 1 on 04/08/2012 at [facility] A BUILDINGImplantLeft: BreastALLERGAN INC 07/07/201620-800 / [id number] / N/ADescription:Emma Silicone Filled Breast ImplantExp Tiss 550ml Styl 7200 Med - [id number] [facility]: Breast [employer]04/30/[id number] / / [id number] Brst 375ml Styl 20 Smth - [id number] Implanted:Qty: 1 on 03/17/2013 at [facility] / BreastRight: Breast [employer] BREAST DIV03/17/104361625 / [id number] / [id number]:smooth round high profileImp Brst 700ml Styl 20 Smth - [id number] Implanted:Qty: 1 on 03/17/2013 at [facility] / BreastLeft: Breast [employer] BREAST DIV12/15/[id number] / [id number] / [id number]:smooth round high profileExplantedTypeAreaManufacturerDevice [facility] Expiration DateModel / Serial / MwsKkb-Sw-L-Kind Implant - [id number] Explanted:Qty: 1 on 06/26/2011 at [facility]plantLeft: BreastALLERGAN INC 11/23/[id number]-22 / [id number] / Description:Tissue Cutter Down Moderate height Procedures Procedure NamePriorityDate/TimeAssociated DiagnosisCommentsCBC + DIFFRoutine 08/21/2024 11:00 AM EDT Malignant neoplasm of upper-outer quadrant of left breast in female, estrogen receptor negative (HCC) COMPREHENSIVE METABOLIC UGHZJXspcwui22/21/2025 11:00 AM EDT Malignant neoplasm of upper-outer quadrant of left breast in female, estrogen receptor negative (HCC) from Last 3 Months or Most Recently Relevant to Health Maintenance Results * (ABNORMAL) COMPREHENSIVE METABOLIC PANEL (08/21/2024 11:00 AM EDT)Component ValueRef RangeTest MethodAnalysis TimePerformed AtPathologist Signature Protein, Total6.96.3 - 8.0 g/dL08/21/2024 12:22 PM EDTNORTTRIN[facility] LABAlbumin4.13.9 - 4.9 g/dL08/21/2024 12:22 PM EDTNORTTRINITY [facility] LABCalcium, Total10.18.5 - 10.2 mg/dL08/21/2024 12:22 PM EDTNORTTRINITY [facility] LABBilirubin, Total0.40.2 - 1.3 mg/dL 08/21/2024 12:22 PM EDTR[facility] LABAlkaline Kzhgghxhueh8733 - 123 U/L08/21/2024 12:22 PM [facility] LMUXWF7533 - 35 U/L08/21/2024 12:22 PM EDTNOMON[facility] AIBTVN344 - 38 U/L08/21/2024 12:22 PM [facility] WWDGimtxgm772(H)74 - 99 mg/dL08/21/2024 12:22 PM [facility] LABComment: The [place] Diabetes Association (ADA) provides guidance for cutoff [...] Standards of Medical Care in Diabetes 2016, [place] Diabetes Association. Diabetes Care. 2016.39(Suppl 1). BUN61(H)7 - 21 mg/dL08/21/2024 12:22 PM [facility] LAB Creatinine1.33(H)0.58 - 0.96 mg/dL08/21/2024 12:22 PM [facility] DSJQdwkhh029746 - 144 mmol/L08/21/2024 12:22 PM [facility] LABPotassium4.83.7 - 5.1 mmol/L08/21/2024 12:22 PM EDT [facility] IKEPhicmiam08423 - 107 mmol/L08/21/2024 12:22 PM [facility] PFEAP90091 - 30 mmol/L08/21/2024 12:22 PM [facility] LABAnion Zbl373 - 15 mmol/L08/21/2024 12:22 PM [facility] LABEstimated Glomerular Filtration Rate42(L)>=60 mL/min/1.73m 08/21/2024 12:22 PM [facility] LABComment:Estimated Glomerular Filtration Rate (eGFR) is [...] VolumeCollection TimeReceived TimeBloodBLOOD SPECIMEN / UnknownVenipuncture / Qsdffpd8308/21/2024 11:00 AM EDT08/21/2024 11:01 AM EDT Narrative Authorizing ProviderResult TypeResult StatusBrarmando Mercado MDLABORATORY Final ResultPerforming OrganizationAddressCity/State/ZIP CodePhone Number [facility] [address] [place] [address] * (ABNORMAL) COMPLETE BLOOD COUNT AND DIFFERENTIAL (08/21/2024 11:00 AM EDT) ComponentValueRef RangeTest MethodAnalysis TimePerformed AtPathologist SignatureWBC7.713.70 - 11.00 k/08/21/2024 11:09 AM EDNOMONTGOMERY [facility] LABRBC4.073.90 - 5.20 m/08/21/2024 11:09 AM [facility] BIXYdapqpezhw87.1(L)11.5 - 15.5 g/dL08/21/2024 11:09 AM [facility] VOZOxnlgzsnbe07.2(L)36.0 - 46.0 % 08/21/2024 11:09 AM EDNOMONTG[facility] AXFKEX39.080.0 - 100.0 NH08/21/2024 11:09 AM [facility] STHMIC58.3 26.0 - 34.0 pg08/21/2024 11:09 AM [facility] LABMCHC 32.530.5 - 36.0 g/dL08/21/2024 11:09 AM [facility] LABRDW-CV15.7(H)11.5 - 15.0 %08/21/2024 11:09 AM [facility] LABPlatelet Yvrjg512258 - 400 k/08/21/2024 11:09 AM [facility] LABMPV9.79.0 - 12.7 NH08/21/2024 11:09 AM [facility] LABNeutrophils %63.5%08/21/2024 11:09 AM [facility] LABAbs Neut4.901.45 - 7.50 /08/21/2024 11:09 AM EDT [facility] LABLymphocytes %20.4%08/21/2024 11:09 AM EDT [facility] LABAbs Lymph1.571.00 - 4.00 k/08/21/2024 11:09 AM [facility] LABMonocytes %9.7%08/21/2024 11:09 AM [facility] LABAbs Mono0.75<0.87 k/uL 08/21/2024 11:09 AM [facility] LABEosinophils %5.2% 08/21/2024 11:09 AM [facility] LABAbs Eosin0.40<0.46 k/uL08/21/2024 11:09 AM ED[facility] LABBasophils %0.8 %08/21/2024 11:09 AM [facility] LABAbs Baso0.06<0.11 k/uL08/21/2024 11:09 AM [facility] LABImmature Granulocytes %0.4%08/21/2024 11:09 AM [facility] LAB Abs Immature Gran0.03<0.10 k/uL08/21/2024 11:09 AM [facility] LABNRBC0.0/100 WBC08/21/2024 11:09 AM [facility] LABAbsolute nRBC<0.01<0.01 k/08/21/2024 11:09 AM [facility] LABDiff QyeaHxmb63/21/2025 11:09 AM [facility] LABSpecimen (Source)Anatomical Location / Laterality Collection Method / VolumeCollection TimeReceived TimeBloodBLOOD SPECIMEN / UnknownVenipuncture / Bltxuwe2908/21/2024 11:00 AM EDT08/21/2024 11:01 AM EDT Narrative Authorizing ProviderResult TypeResult StatusBrarmando Mercado MDLABORATORY Final ResultPerforming OrganizationAddressCity/State/ZIP CodePhone Number [facility] [address] [place] [address] from Last 3 Months or Most Recently Relevant to Health Maintenance Insurance Advance Directives TypeDate RecordedPatient RepresentativeExplanationAdvance Directive(s)06/07/2020 2:34 PMAdvance Directive(s)06/07/2020 2:34 PM Care Teams Team MemberRelationshipSpecialtyStart DateEnd Date Mervin Chanel DO PCP - GeneralInternal Medicine06/04/20
--- OUTSIDE RECORDS SUMMARY | 2025-03-02 10:55 | XMS_ITS | Encounter Summary ---
Author Organization [facility] Address [address] [place] [address] Phone Care Team Providers Care Internal Affairs Investigator Name Role Phone Mervin Chanel Primary Care Provider [phone] Reason for Referral * Consultation (Routine) - AuthorizedSpecialtyDiagnoses / ProceduresReferred By ContactReferred To ContactCardiology Diagnoses Mitral valve insufficiency, unspecified etiology Left ventricular systolic dysfunction Bryce Cheung MD [address] [facility] [address], [address] [address] Phone: tel: fax: Referral IDStatusReasonStart DateExpiration DateVisits RequestedVisits [id number] Specialty Services Required Reason for Visit * ReasonOnset AjdeViguhcrtJkjzcbv36/21/2025 Encounter Details DateTypeDepartmentCare Team (Latest Contact Info)Oyxlwwqygmq14/21/2025Results Follow-Up [facility] [address] [phone] Rissa Luna LPN Transthoracic Echo Limited Social History Tobacco UseTypesPacks/DayYears UsedDateSmoking Tobacco: NeverSmokeless Tobacco: NeverAlcohol UseStandard Drinks/WeekCommentsYes0 (1 standard drink = 0.6 oz pure alcohol)rarelyCommentsNoSex and Gender InformationValueDate RecordedSex Assigned at VldztJqlfsz84/31/2023 2:42 PM EDTLegal GmaOvcvkg37/26/2022 2:47 PM ESTGender RurtweqnYnkxvm80/31/2023 2:42 PM EDTSexual OrientationNot on file documented as of this encounter Miscellaneous Notes * Telephone Encounter - Ana Maria Quinones LPN - 02/20/2025 11:55 AM EDT ----- Message from Bryce Cheung MD sent at 02/20/2025 9:10 AM EDT ----- I would like to refer the patient to [facility] [place] [place] structural heart disease to assess need for [...] 4.24 cm LV A4C EF 50.[address], [address] [place] [address] TRANSTHORACIC ECHOCARDIOGRAM REPORT Patient Name: RENUKA Rodriguez Physician: [id number] Cheung MD, [facility] Study Date: 02/19/2025 Ordering Provider: [id number] CHEUNG MRN/PID: [id number] Fellow: Nurse: Date of /Age: 8 1950 / 74 years Waiter/Waitress Head: Светлана Mantilla RDCS, RVT Gender Assigned at F Additional Staff: : Height: 154.94 cm Admit Date: Weight: 67.13 kg Admission Status: Outpatient BSA / BMI: 1.66 m2 / 27.96 Department Location: [facility] kg/m2 [place] Blood Pressure: 116 /76 mmHg Study Type: TRANSTHORACIC ECHO (TTE) LIMITED Diagnosis/ICD: Nonrheumatic mitral (valve) insufficiency-I34.0; Other ill defined heart diseases-I51.89 Indication: Abnormal EKG-LBBB, HTN, Sepsis with Multiorgan Failure-10/2024, Overweight, CKD-Stage III CPT Codes: Echo Limited-54178 Study Detail: The following Echo studies were [...] (1.8-2.4cm) AORTA: Asc Ao Diam 2.89 cm 40129 Bryce Cheung MD, [facility] Electronically signed on 02/19/2025 at 4:37:04 [...] would like to refer the patient to [facility] heart disease to assess need for mitral valve clip ----- Message ----- From: Interface, Syngo - Cardiology Results In Sent: 02/19/2025 4:37 PM EDT To: Bryce Cheung MD documented in this encounter Plan of Treatment DateTypeDepartmentCare Team (Latest Contact Info)Uighwqfmktw78/05/2025 11:00 AM ESTOffice Visit [facility] [address] [place] [phone] [place] [address] [place] [phone] 03/07/2025 11:30 AM ESTOffice Visit [facility] [address] [phone] [place] [address] Department of Surgery-Cardiac [place] [phone] 09/14/2025 10:20 AM EDTOffice Visit [place] [address] [place] [address] Bryce Cheung MD [address] [facility] 2, [address] [place] [address] NameTypePriorityAssociated DiagnosesOrder ScheduleReferral to Valve [...] Date Mervin Chanel DO [address] [place] [address] PCP - GeneralInternal Medicine01/05/24documented as of this encounter
--- OUTSIDE RECORDS SUMMARY | 2025-03-02 10:55 | XMS_ITS | Encounter Summary ---
Author Organization [facility] Address [address] [place] [address] Phone Care Team Providers Care Utility Teller Name Role Phone Mervin Chanel Primary Care Provider [phone] Reason for Visit * ReasonOnset DateCommentsStructural Heart zpzhnhtu20/23/2025 Encounter Details DateTypeDepartmentCare Team (Latest Contact Info)Owfsnpmundd00/23/2025Telephone [facility] [place] [address] [place] [address] [place] [phone] Liliam Escalante RN Structural Heart referral Social History Tobacco UseTypesPacks/DayYears UsedDateSmoking Tobacco: NeverSmokeless Tobacco: NeverAlcohol UseStandard Drinks/WeekCommentsYes0 (1 standard drink = 0.6 oz pure alcohol)rarelyCommentsNoSex and Gender InformationValueDate RecordedSex Assigned at OvxhgIrmxld64/31/2023 2:42 PM EDTLegal PnhCxtevj34/26/2022 2:47 PM ESTGender ClzkkpolAawevb47/31/2023 2:42 PM EDTSexual OrientationNot on file documented as of this encounter Miscellaneous Notes * Telephone Encounter - Liliam Escalante RN - 02/22/2025 1:41 PM EDT Called & left message to call office back documented in this encounter Plan of Treatment DateTypeDepartmentCare Team (Latest Contact Info)Nmefzrstwhf22/05/2025 11:00 AM ESTOffice Visit [facility] [address] [facility] [address] [place] [address] [place] [address] [place] [address] 03/07/2025 11:30 AM ESTOffice Visit [facility] [address] [facility] [address] [place] [address] [place] [address] Department of Surgery-Cardiac [place], [place] [phone] 09/14/2025 10:20 AM EDTOffice Visit [place] [address] [place] [address] Bryce Cheung MD 703 [facility], [address] [place] [address] documented as of this encounter Visit Diagnoses Not on filedocumented in this encounter Additional Health Concerns AssessmentNoted TimeA fall risk assessment has been completed for the patient 01/30/2025 9:25 AM EDTdocumented as of this encounter Care Teams Team MemberRelationshipSpecialtyStart DateEnd Date Mervin Chanel, [address] [place] [address] PCP - GeneralInternal Medicine01/05/24documented as of this encounter
--- OUTSIDE RECORDS SUMMARY | 2025-03-02 10:55 | XMS_ITS | Encounter Summary ---
Author Organization [facility] Address [address] [place] [address] Care Team Providers Care Venetian Blind Assembler Name Role Phone Mervin Chanel DO Primary Care Provider [phone] Encounter Details DateTypeDepartmentCare Team (Latest Contact Info)Clgnjpyjkpt06/22/2024Clinisync Result Encounter [facility] External Department Unsolicited Deb Robles MD [address] [facility] [address] [place] [address] Social History Tobacco UseTypesPacks/DayYears UsedDateSmoking Tobacco: NeverSmokeless Tobacco: NeverAlcohol UseStandard Drinks/WeekCommentsYes1 (1 standard drink = 0.6 oz pure alcohol)caffeine intake: 2-3 cups per day of diet cokeCommentsUnknownSex and Gender InformationValueDate RecordedSex Assigned at BirthNot on fileLegal BhvSuhfqk43/15/2023 7:03 PM EDTGender IdentityNot on fileSexual OrientationNot on filedocumented as of this encounter Plan of Treatment DateTypeDepartmentCare Team (Latest Contact Info)Sbkwbwiqmul88/03/2025 2:15 PM ESTOffice Visit [facility] [address] [place] [address] Nba Malhotra DO [address] [place] [address] 03/19/2025 3:15 PM ESTProcedure Visit [facility] [address] [place] [phone] Wilfrid Olson, DPDerrek [address] [place] [phone] documented as of this encounter Procedures Procedure NamePriorityDate/TimeAssociated DiagnosisCommentsXR PARANASAL SINUSES 3+ VIEWS03/24/2024 3:50 PM EST documented in this encounter Results * XR paranasal sinuses 3+ views (03/24/2024 3:50 PM EST)Anatomical Region LateralityModalityHead, NeckRadiographic ImagingSpecimen (Source)Anatomical Location / LateralityCollection Method / VolumeCollection TimeReceived Time 03/24/2024 3:50 PM EST Narrative 03/24/2024 3:52 PM EST [facility] ?[address] ? [place] [address] ?XRay Report ? Signed ? Patient: ONIEL,RENUKA A ?MR#: [id number] ?? : 1950 ?Acct:[id number] ?? Age/Sex: 73 / F ?ADM Date: 03/23/24 ?? Loc: RAD ? Attending Dr: Deb Robles M.D. ? Ordering Physician: Deb Robles M.D. ?? Date of Service: 03/23/24 ?? Procedure(s): XR sinus min 3V ?? Accession Number(s): [id number] ? cc: Mervin Chanel D.O.; Deb Robles M.D. ? [facility] ? [address] ? [place] [address] ? Patient Name: ?? RENUKA A ONIEL ? MRN: [id number] ? date: 1950 ?Sex: F ?? Assigned Patient Location: RAD ?? Current Patient Location: ? Accession/Order Number: [id number] ?? Exam Date: 03/23/2024 ??14:19 ?Report Date: [...] 1552 ? DD/ 1550 ? TD/TT: ? Senior Care Assistant: Procedure Note Radiology, Radiologist, MD - 03/24/2024 [place] [address] XRay Report Signed Patient: RENUKA ENGLE AMR#: [id number] : 1950Acct:[id number] Age/Sex: 73 / FADM Date: 03/23/24 Loc: RAD Attending Dr: Deb Robles M.D. Ordering Physician: Deb Robles M.D. Date of Service: 03/23/24 Procedure(s): XR sinus min 3V Accession Number(s): [id number] cc: Mervin Chanel D.O.; Deb Robles M.D. The [place] [address] Patient Name: RENUKA ENGLE MRN: [id number] date: 1950 Sex: F Assigned Patient [facility]: [facility] Current Patient Location: Accession/Order Number: [id number] Exam Date: 03/23/2024 14:19 Report Date: 03/24/2024 [...] M.D. Signed By:03/24/24 1552 DD/ 49 TD/TT: Senior Care Assistant: Authorizing ProviderResult TypeResult StatusHilary Celia Robles MDIMG XR PROCEDURES Final Result documented in this encounter Visit Diagnoses Not on filedocumented in this encounter Care Teams Team MemberRelationshipSpecialtyStart DateEnd Date Mervin Chanel DO [address] [place] [phone] PCP - GeneralInternal Medicine09/30/22documented as of this encounter
--- OUTSIDE RECORDS SUMMARY | 2025-03-02 10:55 | XMS_ITS | Clinical Summary ---
Author Organization [facility] Address [address] [place] [address] Care Team Providers Care Retail Selling Specialist Name Role Phone Mervin Chanel Primary Care Provider [phone] Allergies Active AllergyReactionsCriticalityNoted DateCommentsAtorvastatinHives,RashLow 12/28/20224777Nkqidxkoxowu04/03/2025 Other Reaction(s): Unknown Reaction Oazsgvrzrhx40/28/2023 Other Reaction(s): Unknown Medications MedicationSigDispense QuantityRefillsLast FilledStart [...] mg) by mouth at bedtime 90 tablet 311//246084/5Active traZODone (Desyrel) 50 MG tablet 03/28/2024ctive omeprazole [...] 30 tablet 11010/23/ctive Active Problems ProblemNoted DateDiagnosed HzrwWiuzw-cy-dimnyzb kidney obymtn2810/23/2024llergic zwajfucc49/23/2121Kkpvwr11/23/2025rthritis of left hip10/23/2024arpal tunnel syndrome of left wrist10/23/2024hemotherapy-induced peripheral neuropathy 10/23/2024Hip pain10/23/2024hronic HFrEF (heart failure with reduced ejection fraction)10/23/2024hronic pain10/23/2024hronic jfnfodstgmhy78/23/2025hronic venous insufficiency of lower /23/1171Pxgeupevh23/23/2025Degenerative arthritis of left foot10/23/20242178Vyywaxyi39/23/2025Difficulty vuvcxpx7410/23/2024 Drug-induced dqvtxjaqgvlamw60/23/6468Pofy60/23/2025History of lumbar fusion 10/23/2024History of total left knee irtrpkmyont12/23/7797Tvhjzeyoema73/23/2025 Complete tear of left rotator cuff10/23/2024Left foot pain10/23/2024Lumbar stenosis without neurogenic opsxqhvclsbp06/23/2025Mild pellxnxqwf91/23/2025Nasal polyp, viincftza62/23/2025Neck pain10/23/2024Nocturnal leg kwkfsb1310/23/2024 Orthostatic szuabukduzs19/23/8875Pwfyynjufclrix18/23/3866Yxfwqdnehvxf33/23/2025 Other low back pain10/23/2024Pain of right sacroiliac joint10/23/2024Pes anserinus bursitis of left knee10/23/2024Postoperative pain10/23/2024Internal derangement of left uydpfrvg04/23/2025Internal derangement of right shoulder 10/23/20240284Fqtspyapfdemtvfojv32/23/2025S/P left lqvhaeonug10/23/2025Inflammation of right sacroiliac joint10/23/20244603Wdvncqkxx52/23/2025ervical spondylosis with fxkrliyiwpeuh48/23/2025Lumbar adjacent segment disease with spondylolisthesis 10/23/2024Lumbar ajcrksspqiq95/23/2025Spondylolisthesis, lumbar nvkdgi7510/23/2024 Tinnitus of both ears10/23/2024Unspecified rotator cuff tear or rupture of right shoulder, not specified as anzhmpwgm42/23/2025Unsteady gait when walking 10/23/2024ilateral carpal tunnel uvruoqdz60/23/2025Never smoked tobacco 07/15/2023Keratoconjunctivitis sicca of both eyes not specified as Sjogren's 06/09/2023Left ventricular systolic sebydxuview14/16/4508Gaxhn77/31/2023MI 28.0-28.9,adult02/28/20238717Zdiigd82/29/2023hest pain02/28/2023Essential vamsrpoyrzee72/29/2023Left bundle branch block (LBBB)02/28/2023Mitral uspenjtdaimhj38/29/2023rimary open angle glaucoma (POAG) of both eyes, mild stage02/26/2023CO (posterior capsular opacification), zpyvjyhvf82/27/2023 Obesity, Class I, BMI 30-34.9006/18/2020hronic kidney elyuebj8106/03/2020GERD (gastroesophageal reflux disease)06/03/2020History of breast hgqrzv1010/09/2014 Idiopathic progressive swfhpfjtoc73/28/2012Malignant neoplasm of female breast 06/15/2011nxiety state11/16/2007symptomatic varicose veins11/16/2007enign hypertensive heart disease without congestive heart trkevkx9211/16/2007Generalized typtvzjitykwre26/16/2008Irritable bowel /16/2008Pure uwnwwtyspjfdozqsjfwd49/16/2008Syncope and sognzyhw01/16/2008 Resolved Problems ProblemNoted DateDiagnosed DateResolved DateDry eyes/11/2023 Encounters DateTypeDepartmentCare JzczZlrtngniyoa89/13/2025 2:50 PM EDTAncillary Procedure [facility] [address] [place] [address] 02/12/2025 2:45 PM EDTOffice Visit [facility] [address] [place] [address] Dean Ren PA Acute pain of right shoulder (Primary Dx); Rotator cuff arthropathy of right shoulder; Subacromial impingement of right /13/2025amboo flowsheet [facility] [address] [place] [address] Dean Ren PA 02/12/2025Travelfrom Last 3 Months Immunizations ImmunizationAdministration DatesNext DueInfluenza, High Dose Seasonal, Preservative Free01/29/2020,02/17/2018,02/02/2017Influenza, High-dose Seasonal, Quadrivalent, Preservative Free01/28/2021,01/29/2020Influenza, Seasonal, Quadrivalent, Prqphcvslq25/14/2022Influenza, Nxacirspcjq94/25/2012Influenza, injectable, qeqjviiqgbcq11/01/2016Influenza, injectable, quadrivalent, preservative free01/14/2022,02/01/2020,02/17/2019,06/09/2017,02/16/2017, 02/10/2017,05/05/2016,04/02/2016Influenza, seasonal, obaznqmegk23/01/2022Moderna SARS-CoV-2 Cktsnveliug64/08/2023Pneumococcal Conjugate PCV 13005/11/2022, 12/30/2016Pneumococcal Polysaccharide UFSI8468/,02/08/2017,05/03/2015, 05/03/2013,01/31/2013,06/27/20117842NKUI-FEO-2 (COVID-19) vaccine, mRNA, spike protein, LNP, bivalent, preservative free, 30 mcg/0.3 mLdose, nicky-sucrose xzbpvudthjc39/26/2022Zoster, Pfrwikycmyb06/25/2021,02/28/2020Zoster, live 01/31/2014 Family History Medical HistoryRelationNameCommentsLeukemiaBrotherCancerFatherClement Pink Testicular cancerFatherClement BarnesBreast cancerMotherJosephine RedingerCancer MotherJosephine RedingerGlaucomaMotherJosephine RedingerHearing lossMother Alejandra RedingerRelationNameStatusCommentsBrotherFatherClement BarnesDeceased MotherJosephine RedingerAlive Social History Tobacco UseTypesPacks/DayYears UsedDateSmoking Tobacco: NeverSmokeless Tobacco: Never Tobacco Cessation:Counseling Given: Not Answered Alcohol UseStandard Drinks/WeekCommentsYes1 (1 standard drink = 0.6 oz pure alcohol)caffeine intake: 2-3 cups per day of diet cokeCommentsUnknownSex and Gender InformationValueDate RecordedSex Assigned at BirthNot on fileLegal LuiUxcqln77/15/2023 7:03 PM EDTGender IdentityNot on fileSexual OrientationNot on file Last Filed Vital Signs Vital SignReadingTime TakenCommentsBlood Mkxanqun484/6406 11:00 AM EDT Pulse--Temperature--Respiratory Rate--Oxygen Saturation--Inhaled Oxygen Concentration--Vtuawy99.8 kg (156 lb)10/23/2024 11:00 AM FQMHdzvfs786.5 cm (5' 2 )10/23/2024 11:00 AM EDTBody Mass Index28.5306 11:00 AM EDT Plan of Treatment DateTypeDepartmentCare Team (Latest Contact Info)Tbczkqvsqja63/03/2025 2:15 PM ESTOffice Visit [facility] [address] [place] [id number] Nab Malhotra, DO [address] [place] [address] 03/19/2025 3:15 PM ESTProcedure Visit [facility] [address] [place] [address] Wilfrid Olson, DPM [address] [facility] [address] [place], [place] [address] Health MaintenanceDue DateLast DoneCommentsCT Quydvtuhymrr86/06/1950Colonoscopy 1949Colorectal Cancer Uwjafpyqx00/06/1950FIT-DNA1949FIT1949 FOBT1949 5630Vslsjcsrnlxui32/06/1950Pneumococcal Vaccine: 65+ YearsCompleted 05/11/2022, 07/20/2020, 02/08/2017, Additional history existsInfluenza Vaccine Sduuzygro07/15/2025, 02/25/2024, 01/22/2023, Additional history exists Procedures Procedure NamePriorityDate/TimeAssociated DiagnosisCommentsXR SHOULDER 2+ VIEWS GLVQJTsrzduz96/13/2025 2:47 PM EDT Acute pain of right [...] Final Result from Last 3 [place] [address] Care Teams Team MemberRelationshipSpecialtyStart DateEnd Date Mervin Chanel DO [address] [facility] [place] [id number] PCP - GeneralInternal Medicine09/30/22
--- OUTSIDE RECORDS SUMMARY | 2025-03-02 10:55 | XMS_ITS | Clinical Summary ---
Author Organization [facility] Address [address], [address] [place] [address] Care Team Providers Care Automotive Brake Technician Name Role Phone Unavailable Primary Care Provider Unavailabl e Allergies Active AllergyReactionsCriticalityNoted PnavCsmcwewuXvetjigfqccm53/23/2018 Kpsnqdymbym98/23/2018 Medications MedicationSigDispense QuantityRefillsLast FilledStart DateEnd DateStatus traMADol (ULTRAM) 50 MG tablet Take 50 mg by mouth as needed for Pain.Active Naproxen Sodium (ALEVE PO) Take by mouth as neededActive Active Problems No known active problems Social History Tobacco UseTypesPacks/DayYears UsedDateSmoking Tobacco: Never AssessedSmokeless Tobacco: NeverCommentsUnknownSex and Gender InformationValueDate RecordedSex Assigned at BirthNot on fileLegal WevLxpftr32/11/2018 2:11 PM EST Gender IdentityNot on fileSexual OrientationNot on file Last Filed Vital Signs Vital SignReadingTime TakenCommentsBlood Pressure--Pulse--Ycvxlwspyeg95.9 ??C (96.6 ??F)05/25/2017 3:22 PM ESTRespiratory Rate--Oxygen Saturation--Inhaled Oxygen Concentration--Dzhowy56.6 kg (180 lb)05/25/2017 3:22 PM EBWFjrtpj123 cm (5' 3 )05/25/2017 3:22 PM ESTBody Mass Index31.8905/25/2017 3:22 PM EST Plan of Treatment Not on file Insurance MemberSubscriberPlan / Payer (Effective 2017-Present)Name:Renuka Owen Relation to Subscriber:SelfName:Renuka Owen Payer ID:Not on file Group ID:Not on file Type:Not on file Address: [place] [id number]
--- OUTSIDE RECORDS SUMMARY | 2025-03-02 10:55 | XMS_ITS ---
Author Organization [facility] Address [address] [place] [address] Care Team Providers Care Head Char Filter Tank Tender Name Role Phone Mervin Chanel Primary Care Provider [phone] Active Problems ProblemNoted DateDiagnosed DateObesity, Class I, BMI 30-34.90/GERD (gastroesophageal reflux disease)06/03/2020 Assessment & Plan (06/03/2020 12:54 PM EST): Assessment: on Prilosec CKD (chronic kidney disease)06/03/2020 Assessment & Plan (06/03/2020 12:56 PM EST): Assessment: per care everywhere. Did have a drop in GFR last fall that improved upon recheck. Will have pre-op labs ordered by surgeon. History of breast abgpmn3410/09/2014Neuropathy due to chemotherapeutic drug 03/30/2012 Assessment & Plan (06/03/2020 12:54 PM EST): Assessment: on Gabapentin tid Breast kirnjk0303/30/2012 Cancer Staging: Clinical: Unsigned Pathologic:ER -, VA - , HER2 -(T2, N2) - Unsigned Breast cancer, left breastHypercholesteremiaHypertension Assessment & Plan (06/03/2020 12:53 PM EST): Assessment: on Coreg and hctz. BP today 136/90 OsteoarthritisBundle branch block, left Assessment & Plan (06/03/2020 12:54 PM EST): Assessment: chronic. [facility] Mild depressionS/P left mastectomy Current Treatment and Therapy Plans No current plan information found. Past Treatment and Therapy Plans Plan NameStart DateDiscontinue DateTreatment MedicationsDiscontinue ReasonPlan ProviderCyclesCENTRAL LINE FLUSH - ONE TIME02/17/2012No medications scheduled. Treatment Hilda White, AIR POLLUTION COMPLIANCE INSPECTOR.CNP1 of 2 cycles started Resolved Problems ProblemNoted DateDiagnosed DateResolved DateRectal tumor/
--- OUTSIDE RECORDS SUMMARY | 2025-03-02 11:07 | XMS_ITS | CCD ---
Author Organization [facility] Inform ion Partnership [facility] Care Team Providers Care Hoseman Name Role Phone BRCYE HENDRICKSON Unavailable Unavailable SYLVESTER JACOB Unavailable Unavailable [...] Care Provider MD Devin Moreau Attending Provider [phone] Sylvester Jacob DO Primary Care Provider Radha Moreau Unavailable DO Sylvetser Jacob Primary Care Provider MD Devin Moreau Attending Provider MD Radha Moreau Attending Provider NON STAFF Primary Care Provider UnavailMD Jared Allen Other Provider [phone] MD Saman Marino Admit Provider MD Saman Marino Attending Provider PROVIDER, UNKNOWN Attending Unavailable PROVIDER, UNKNOWN Admitting Unavailable MD Devin Moreau Attending Provider DO Sylvester Jacob Primary Care Provider JERRICA Biggs Attending Provider Sylvester Jacob DO Primary Care Provider Sylvester Jacob DO Primary Care Provider NON STAFF Primary Care Provider UnavailJERRICA Berg Attending Provider DO Sylvester Jacob Primary Care Provider MD Devin Mroeau Attending Provider MD Artie Blackburn Attending Provider [...] Provider Stewart OWENS, Romel Torres Emergency Provider [phone] Nidia DO Sylvester Primary Care Provider Sheila MARTELL, Josh Admit Provider Josh Sosa MD Attending Provider Danyelle Mathews MD Other Provider Regina Garcia DO Emergency Provider FriIsaiah nair DO Admit Provider Isaiah Mejia DO Attending Provider Sherin Arellano MD Other Provider Zenobia Carrasco MD Other Provider Saman Marino MD Other Provider Marley Mendieta APRN Other Provider Iglesia Garza DO Other Provider Jared Louis MD Other Provider Landon Whitfield MD Attending Provider Douglas MARTELL, Emory Anglin Attending Provider Sylvester Jacob DO Primary Care Provider Regina Garcia DO Emergency Provider Roberto DO, Isaiah Admit Provider Sherin Arellano MD Other Provider Landon Whitfield MD Attending Provider Luna MARTELL, Zenobia Other Provider Saman Marino MD Other Provider Marley Mendieta APRN Other Provider [phone] Belmarshall DO, Iglesia Lamas Other Provider [phone] Heriberto MARTELL, Jared Palacios Other Provider Douglas [...] Danyelle Mathews MD Other Provider Juan David RO[address] MENDER-C, Kimmy Other Provider Unavailable Adan MARTELL, Sherin [...] Provider Donis MARTELL, Yo Other Provider Nazia [facility], Priti Lamas Other Provider Iraj Juan MD Attending Provider JACOB MERCADO Referring Unavailable SYLVESTER JACOB Primary Care Unavailable JACOB MERCADO Attending Unavailable JACOB MERCADO Referring Unavailable SYLVESTER JACOB Primary Care Unavailable Jared Louis MD Admit Provider Jared Louis MD Other Provider [phone] Deana LAKE, Regina Other Provider Unavailable Theresa Velez RN Other Provider Unavailable Magi Young RN Other Provider Unavailable Blanca Arvizu RN Other Provider Unavailable Nava Oconnell RN Other Provider Unavailable Areli Marino RN Other Provider Unavailable Mary Marc MD Other Provider Cb Adam DO Other Provider Nohelia MD, Dylan Other Provider Nusratmarquise FENG Freddy Other Provider Tiera MARTELL, Guero Other Provider Alex MARTELL, Yary Other Provider Leo FENG, Isaiah Other Provider [phone] Robin MARTELL, Servando Other Provider Unavailable Roxie Love APRN Other Provider Emily MARTELL, Jasmine Other Provider [phone] Jorge L MARTELL, Sterling Other Provider Aly MARTELL, Israel Other Provider Unavailable Gage Pena MD Other Provider Isaiah Mejia DO Other Provider Jeanna MARTELL, Wallace Other Provider Soha MARTELL, Yonas Other Provider Marya ROAD MENDER-C, Julito Torres Other Provider Daniel ANTONY, Leonardo Anglin Other Provider Unavailable Evangelist MARTELL, Zak Rosenthal Other Provider Demarco MARTELL, Joaquin Other Provider Maynor Conway MD Other Provider Davian MARTELL, Dale Other Provider Unavailable Meño Saldana MD Other Provider Tatiana Sibley DO Other Provider Byron Dave DO Other Provider [phone] Sheila ANTONY, Xi Other Provider Zechariah Mccarthy DO Other Provider [phone] Dorita MARTELL, Ambika Anglin Other Provider Radhika [...] Other Provider Saman Duran MD Other Provider [phone] Surya MARTELL, Servando Walters Other Provider Lin [...] Unavaila cat Mathews MD, Danyelle Attending Provider [phone] Sylvester Jacob DO Primary Care Provider [...] Jr Consulting UnavailJared Allen Consulting Unavaila cat [facility] Unavailable Emory Cole II Attending UnavailEmory Best II Admitting Unavailabl galo [facility] Unavailable Devin Moreau Attending Unavailable Devin Moreau Admitting Unavailable [facility] Unavailable Danyelle Mathews Attending Unavailable Reid, Essam Admitting Unavailable [facility] Care Unavailable Jared Louis Attending Unavaila Regina Nelson Consulting Unavailable Jared Louis Admitting Unavaila cat Velez Theresa Consulting Unavailable Magi Yuong Consulting Unavailable Blanca Arvizu Consulting Unavailable Nava [...] OnsetReaction(s) FacilityHMG-CoA Reductase Inhibitors (statins) (1 source)atorvastatinDrug Nzkdffl38-74-2288GslnqZyczjretyMercy Health Fairfield HospitalIodine (and Iodine containting drugs) (1 source)IodineDrug Fooggmx22-78-4796Idjmgfm ReactionKettering Health Washington TownshipPenicillins (antibiotic) (3 sources)PenicillinDrug Dsgezlh48-76-0733Axvthkm Reaction, Comment:Penicillin, [facility] CenterQuinolones (antibiotic) (1 source)levoFLOXacinDrug Xzitrlf30-72-7900Iwdwsad ReactionKettering Health Washington Township (20 sources)atorvastatin; Translations: [atorvastatin]Drug Qlyasuv49-85-8277 [facility] (20 sources)Penicillins; Translations: [Penicillins]Allergy to substance 33-08-8375GzjrlUwaqbmlefCincinnati Children's Hospital Medical Center (20 sources)Penicillin GDrug Vljurrg86-60-1128Nhuysqv, Unknown ReactionKettering Health Washington Township (5 sources)atorvastatin; Translations: [Lipitor]Drug AllergyAccess [facility] 600 DO Work Phone: (5 sources)Hmg-Coa Reductase Inhibitors (Statins); Translations: [Statins] Allergy to drug (finding)[facility] 600 DO Work Phone: (7 sources)atorvastatin; Translations: [ATORVASTATIN CALCIUM]Drug Allergy 90-10-0925WyateeqFkdyymmvb Clinic (20 sources)IodineDrug Mcbemiu60-35-2182Ztroapm, Unknown ReactionKettering Health Washington Township (1 source)AmoxicillinDrug AllergyUniversity Hospitals [facility] Repository (1 source)DextroamphetamineDrug AllergyThe [facility] Repository (20 sources)levoFLOXacinDrug AllergyUnknowSullivan County [facility] Hospital Cornice Other (20 sources)Penicillin VDrug Dhkxtfo70-84-7905Lqzkwor:[facility] (1 source)patient allergy list reviewed by nurse or physiciaPropensity to adverse ypnpvndev88-21-5601Gihjevj:[employer] Other (9 sources)HMG-CoA reductase inhibitor; Translations: [QBFUWNJ-NPD-AIZ REDUCTASE INHIBITORS]Drug Stlwtzq47-18-3900AlsdrGdesqoxmoeGreen Cross Hospital Work Phone: (20 sources)levoFLOXacin; Translations: [levofloxacin]Drug Nzobcoc98-35-2874 Unknown ReactionKettering Health Washington Township Medications Current Medications MedicationDrug Class(es)DatesSig (Normalized)Sig (Original)acetaminophen 500 mg oral tablet (20 sources)Start: 94-32-1615oaha 1 tablet by mouth every four hours as needed for painAcetaminophen 500 mg Tablet Active 500 MG PO Q4H as needed for Pain 0 November 30, 2024 12:00am Complies with drug therapyStart: 04-19-2023 End: 94-37-2684mjek 1 tablet by mouth every four hours as needed for pain Acetaminophen 500 mg Tablet Discontinued 500 MG PO Q4H as needed for Pain 0 April 19, 2023 1:00am November 14, 2024 5:57pmStart: 04-15-2023 End: 14-69-2759rmsp 2 tablets by mouth every four hours as needed for pain Acetaminophen (Tylenol) 325 mg Tablet Discontinued 650 MG PO Q4H as needed for Mild Pain 0 2022 1:00am April 19, 2023 3:08pmStart: 09-24-2021 End: 34-39-1460sduw 1 tablet by mouth every four hours as needed for pain Acetaminophen 500 mg Tablet Discontinued 500 MG PO Q4H as needed for Pain September 24, 2021 12:00am April 15, 2023 9:14am Take with tramadolStart: 70-74-2018sgdk 500 mg by mouth twice dailyAcetaminophen Active 500 MG PO Twice daily September 23, 2021 11:00pm Take with tramadolazithromycin 250 mg oral tablet (3 sources)Macrolide AntimicrobialStart: 65-80-8022Rkumzsuqobup 250 MG as directed Orally daily for 5 days May, Activecalcium carbonate 1500 mg oral tablet (20 sources)take 1 tablet by mouth in the morningcalcium carbonate (Calcium 600) 600 MG tablet Take 600 mg by mouth in the morning and 600 mg in theevening. Take with meals. Activecalcium carbonate 1500 mg / cholecalciferol 0.01 mg oral tablet (20 sources)Vitamin DStart: 97-99-1101wlqu 1 tablet by mouth twice dailyCalcium Carbonate-Vitamin D3 (Calcium 600 + D(3)) 600 mg-10 mcg (400 unit) Tablet Active 1 TAB PO Twice daily September 24, 2021 12:00am Complies with drug therapy cetirizine hydrochloride 10 mg oral tablet (20 sources)Histamine-1 Receptor AntagonistStart: 41-58-3862LVISPXO RELIEF, CETIRIZINE, 10 mg tablet 02/28/2021 Activecholecalciferol 0.025 mg oral capsule (20 sources)Vitamin Dtake 1 capsule by mouth once dailycholecalciferol (Vitamin D-3) 25 MCG (1000 UT) capsule Take 1,000 Units by mouth Daily Activetake 1 capsule by mouth in the morningcholecalciferol (Vitamin D-3) 25 MCG (1000 UT) capsule Take 1,000 Units by mouth in the morning. ActiveCyclosporine (6 sources)Calcineurin Inhibitor ImmunosuppressantStart: 30-89-5233llig 1 drop(s) into the eye(s) every twelve hoursCyclosporine 0.05 % Dropperette Active 1 DROPS EYE-BOTH Every 12 hours 0 November 30, 2024 12:00am Complies with drug therapyStart: 47-45-4172uhbn 1 drop(s) into the eye(s) every twelve hoursStart: 05-29-2024 End: 38-46-8440czrw 1 drop(s) into the eye(s) in the morningcycloSPORINE (Restasis) 0.05 % ophthalmic emulsion Indications: Keratoconjunctivitis sicca of both eyes not specified as Sjogren's Administer 1 drop into both eyes in the morning and 1 drop before bedtime. 180 mL 3 05/29/2024 08/27/2024 Active dapagliflozin 10 mg oral tablet (10 sources)Sodium-Glucose Cotransporter 2 InhibitorStart: 69-14-6167nkbz 1 tablet by mouth once dailyDapagliflozin Propanediol 10 mg tablet Active 10 MG PO Daily January 09, 2025 4:12pm Complieswith drug therapyStart: 11-14-2024 End: 77-04-8928bzhx 1 tablet by mouth once dailyDapagliflozin Propanediol 5 mg Tablet Discontinued 5 MG PO Daily 0 November 14, 2024 12:00am January 09, 2025 4:14pmdocusate sodium 100 mg oral capsule (8 sources)Start: 23-32-1813uxpe 1 capsule by mouth twice daily as needed for constipationDocusate Sodium 100 mg Capsule Active 100 MG PO Twice daily as needed for Constipation 0 October 12:00am Complies with drug therapy Start: 11-30-2024 End: 72-80-6877Tjnezbmo Sodium (Enemeez) 283 mg/5 mL Enema Discontinued 283 MG MT Daily as needed for Constipation0 November 30, 2024 12:00am December 05, 2024 9:22amfluticasone propionate 0.05 mg/actuat metered dose nasal spray (20 sources)CorticosteroidStart: 01-09-2024 End: 20-56-7299gdms 2 spray(s) nasal route once daily as needed for congestion Fluticasone Propionate 50 mcg/actuation spray,suspension Active 0 .ROUTE .COMPLEX 48 October 0158:37am USE 2 SPRAYS IN EACH NOSTRIL ONCE A DAY NEEDED FOR NASAL CONGESTION Complies with drug therapyStart: 10-04-2020 End: 36-91-5128Ueoprrlfihz Propionate 50 mcg/actuation spray,suspension Discontinued 2 SPRAY INTRANASAL Daily as needed for Nasal Congestion December 15, 2023 1:23pm January 09, 2024 8:38amStart: 71-64-1615fidtpppgpza (FLONASE) 50 mcg/actuation nasal spray 2 Sprays once daily. 01/19/2016 Active take 1 spray(s) nasal route once dailyfluticasone (Flonase) 50 MCG/ACT nasal spray Administer 1 spray into each nostril Daily Shake gently. Before first use, prime pump. After use, clean tip and replace cap. Active End: 92-54-5848qghlagffljj (Cutivate) 0.05 % cream Apply topically in [...] 20 mg oral tablet (14 sources)Loop DiureticStart: 83-59-0322zzmz 1 tablet by mouth twice daily as needed for edemaFurosemide 20 mg tablet Active 20 MG PO Twice daily as needed for edema 60 January 15, 2025 12:00pm Complies with drug therapyStart: 11-30-2024 End: 62-87-3318urnj 1 tablet by mouth once dailyFurosemide 20 mg Tablet Discontinued 20 MG PO Daily at 0800 0 November 30, 2024 12:00am January 15, 2025 12:04pmStart: 11-14-2024 End: 90-65-7493gale 1 tablet by mouth once dailyFurosemide 40 mg Tablet Discontinued 40 MG PO Daily at 0800 0 November 14, 2024 12:00am November 30, 2024 10:32amStart: 29-52-2007dqbk 1 tablet by mouth every twenty-four hoursFurosemide 20 MG 1 tablet Orally Once a day for 30 days Apr, Activegabapentin 100 mg oral capsule (20 sources)Anti-epileptic AgentStart: 84-36-8606ovok 2 capsules by mouth once dailyGabapentin 100 mg Capsule Active 200 MG PO Daily 0 November 14, 2024 12:00am Complies with drug therapyStart: 07-03-2024 End: 24-32-3024ptxl 1 capsule by mouth four times dailyGabapentin 300 mg capsule Discontinued 300 MG PO Four times daily 120 September 29, 2024 11:59am November 14, 2024 3:26pmStart: 07-03-2024 End: 66-67-2172sire 2 capsules by mouth twice dailyGabapentin 300 mg capsule Discontinued 600 MG PO Twice daily July 03, 2024 2:50pm July 0355:40pm Start: 06-22-2023 End: 43-61-4506fxnv 2 capsules by mouth three times dailyGabapentin 300 mg capsule Discontinued 600 MG PO Three times daily April 04, 2024 3:41pm July 03, 2024 2:56pmStart: 09-37-3254kljm 600 mg by mouth once dailyGabapentin Active 600 MG PO every day at noon September 24, 2021 10:44amStart: 09-24-2021 End: 75-28-4026Vglghzhsgy 300 mg capsule Discontinued MG September 24, 2021 12:00am September 24, 2021 10:46amStart: 09-24-2021 End: 08-18-5607ccoz 3 capsules by mouth twice dailyGabapentin 300 mg capsule Discontinued 900 MG PO BID@1400,2199September 24, 2021 12:00am April 3:55pmStart: 54-71-0718zuhd 900 mg by mouth twice dailyGabapentin Active 900 MG PO BID@1400,2199September 24, 2021 12:00amStart: 09-24-2021 End: 88-56-3227Wrdamwwuho Discontinued MG September 24, 2021 12:00am September 24, 2021 10:46amStart: 45-98-9931auks 600 mg by mouth twice dailyGabapentin Active 600 MG PO BID@1400,2199September 24, 2021 12:00amStart: 10-04-2020 End: 20-49-0325uowy 1 capsule by mouth once daily in the morningGabapentin 300 mg capsule Discontinued 300 MG PO Every morning October 04, 2020 12:00am April 6:36pmStart: 10-04-2020 End: 74-89-1293xblf 1 tablet by mouth once daily at [...] oral tablet (2 sources)Quinolone AntimicrobialStart: 03-08-2024 End: 96-55-8164khbo 1 tablet by mouth once dailylevoFLOXacin (Levaquin) 500 MG tablet Indications: Chronic sinusitis, unspecified location Take 1 tablet (500 mg) by mouth Daily for 14 days 14 tablet 03/08/2024 03/22/2024 Activeloratadine 10 mg oral tablet (12 sources)take 1 tablet by mouth once dailyloratadine (Claritin) 10 mg tablet Take 1 tablet (10 mg) by mouth once daily. Activemelatonin 10 mg oral tablet (20 sources)Start: 38-23-3501kkqk 1 tablet by mouth at bedtime as needed for sleepMelatonin 10 mg Tablet Active 10 MG PO Bedtime as needed for Sleep March 16, 2022 1:00am Complies with drug joqrfka01 hr metoprolol succinate 25 mg extended release oral tablet (20 sources)beta-Adrenergic BlockerStart: 98-30-3574lkwc 1 tablet by mouth once dailyMetoprolol Succinate 25 mg tablet extended release 24 hr Active 0 .ROUTE .COMPLEX January 15, 2025 7:35am TAKE 1 TABLET BY MOUTH EVERY DAY Complies with drug therapyStart: 11-30-2024 End: 94-91-3043iaui 1 tablet by mouth once dailyMetoprolol Succinate 25 mg Tablet Extended Release 24 Hr Discontinued 25 MG PO Daily 0 November 30, 2024 12:00am January 15, 2025 7:35amStart: 11-14-2024 End: 65-82-2887Wsoclvvmxm Succinate 25 mg Tablet Extended Release 24 Hr Discontinued 75 MG PO Daily 0 November 14, 2024 12:00am November 30, 2024 10:32am Start: 07-21-2024 End: 03-83-1736ckhi 1 tablet by mouth once dailyMetoprolol Succinate 25 mg tablet extended release 24 hr Discontinued 0 .ROUTE .COMPLEX July 21, 2024 4:35pm November 14, 2024 3:26pm TAKE 1 TABLET BY MOUTH EVERY DAYStart: 06-27-2024 End: 69-75-9804fuln 1 tablet by mouth once dailyMetoprolol Tartrate 25 mg tablet Discontinued 25 MG PO Daily June 27, 2024 10:01pm July 21, 2024 4:35pmtake 1 tablet by mouth every twenty-four hoursmetoprolol succinate XL (Toprol-XL) 25 MG 24 hr tablet Take by mouth Do not crush or chew. Active montelukast 10 mg oral tablet (20 sources)Leukotriene Receptor AntagonistStart: 03-28-2024 End: 14-28-6393gmel 1 tablet by mouth at bedtimemontelukast (Singulair) 10 MG tablet Indications: Chronic frontal sinusitis Take 1 tablet (10 mg) by mouth at bedtime 90 tablet 3 03/28/2024 03/28/2025 ActiveNaproxen (6 sources)Nonsteroidal Anti-inflammatory Drug End: 78-86-5642OPTFUCLU SODIUM ORAL Take by mouth if needed. 0 03/02/2023 Discontinued (Other)Aleve TABS as needed Quantity: 0 Refills: 0 Ordered: 10-Feb-2022 DO Activenortriptyline 10 mg oral capsule (11 sources)Tricyclic AntidepressantStart: 10-23-2024 End: 59-99-9424vbpb 1 capsule by mouth at bedtimenortriptyline (Pamelor) 10 MG capsule Indications: Bilateral carpal tunnel syndrome Take 1 capsule (10 mg) by mouth at bedtime 30 capsule 11 10/23/2024 10/23/2025 Activeomeprazole 40 mg delayed release oral capsule (20 sources)Proton Pump InhibitorStart: 96-66-8550xtpaosxyku (PriLOSEC) [address] capsule 05/20/2024 ActiveStart: 02-24-2024 End: 82-88-1223Fwbkdimlwp 40 mg capsule,delayed release(DR/EC) Discontinued 0 .ROUTE .COMPLEX February 24, 2024 8:39am November 14, 2024 6:00pm TAKE 1 CAPSULE BY MOUTH ONCE A DAY ON EMPTY STOMACH FOLLOWED IN 30 MINUTES BY BREAKFAST FOR 90 DAYSStart: 11-24-2016 End: 12-13-5524oiwb 1 capsule by mouth once dailyOmeprazole 20 [...] release oral tablet (5 sources)Proton Pump InhibitorStart: 26-57-1939cjwt 1 tablet by mouth once dailyPantoprazole 40 mg Tablet,Delayed Release (Dr/Ec) Active 40 MG PO Daily 0 November 14, 2024 12:00am Complies with drug therapypredniSONE 10 mg oral tablet (20 sources)Start: 09-28-2024 End: 41-85-5799teawvyYBMW (Deltasone) 10 MG tablet Indications: Osteoarthritis of midtarsal joint of left foot , Capsulitis of left foot , Pain in joint of left foot , Pain and swelling of toe of left foot , Difficulty walking 1 tablet twice daily x 7 days; followed by 1 tablet daily as directed until complete 21 tablet 09/28/2024 10/23/2024 Discontinued (Therapy completed)Start: 03-28-2024 End: 10-29-5231xfej 1 tablet by mouth in the morningpredniSONE (Deltasone) 20 MG tablet Indications: Chronic frontal sinusitis Take 1 tablet (20 mg) bymouth in the morning and 1 tablet (20 mg) before bedtime. Do all this for 6 days. 12 tablet 03/28/2024 04/03/2024 ActiveStart: 03-08-2024 End: 89-13-8811zkjx 1 tablet by mouth in the morningpredniSONE (Deltasone) 20 MG tablet Indications: Chronic sinusitis, unspecified location Take 1 tablet (20 mg) by mouth in the morning and 1 tablet (20 mg) before bedtime. Do all this for 6 days. 12 tablet 03/08/2024 03/14/2024 ActiveStart: 43-26-3150irhvmsDUCJ 5 MG 1 tablet 3 times a day for 3 days, 1 tablets 2 times a day for 3 days , 1 tablet 1 times a day for 3 days Orally as directed for 9 days Jan, Active Start: 66-83-0802itogakHTVJ 20 MG 1 tablet Orally twice daily w/ food x 3 days then qd w/ food x 3 days for 6 days Jan, Not-Taking/PRNStart: 04-01-2022 End: 62-85-0141Dbuayblapx 10 mg tablets,dose pack Discontinued 1 dose pk PO per package directions April 01, 2022 1:00am March 26, 2023 2:38pm take 4 tabs for 3 days then take 3 tabs for 3 days then take 2 tabs for 3 days then take 1 tab for 3 daysStart: 04-01-2022 End: 42-79-1852Utjyfjvzrv Discontinued 1 dose pk PO per package directions April 01, 2022 1:00am March 26, 2023 2:38pm take 4 tabs for 3 days then take 3 tabs for 3 days then take 2 tabs for 3 days then take 1 tab for 3 daysStart: 04-01-2022 End: 45-92-7896Mfsyigmclm Discontinued 1 dose pk PO per package directions April 01, 2022 12:00am 2022 1:38pm take 4 tabs for 3 days then take 3 tabs for 3 days then take 2 tabs for 3 days then take 1 tab for 3 daysStart: 83-55-3982Qckzidsrak Active 1 dose pk PO per package [...] then take 1 tab for 3 daysStart: 44-54-4395Iuiewcwuky Active 1 dose pk PO per package directions October 09, 2021 12:22pm take 4 tabs for 3 days then take 3 tabs for 3 days then take 2 tabs for 3 days then take 1 tab for 3 days Start: 10-09-2021 End: 10-09-2937Nworriiekg 10 mg tablets,dose pack Discontinued 1 dose pk PO per package directions October 09, 2021 12:00am March 16, 2022 12:00pm take 4 tabs for 3 days then take 3 tabs for 3 days then take 2 tabs for 3 days then take 1 tab for 3 daysStart: 10-09-2021 End: 17-18-4660Imobzeylfu Discontinued 1 dose pk PO per package directions October 09, 2021 12:00am March 16, 2022 12:00pm take 4 tabs for 3 days then take 3 tabs for 3 days then take 2 tabs for 3 days then take 1 tab for 3 days Start: 10-09-2021 End: 75-69-4452Sdufsnpgsc Discontinued 1 dose pk PO per package directions October 08, 2021 11:00pm March 16, 2022 11:00am take 4 tabs for 3 days then take 3 tabs for 3 days then take 2 tabs for 3 days then take 1 tab for 3 days thiamine 100 mg oral tablet (8 sources)Start: 10-23-2024 End: 04-34-2213sgpy 1 tablet by mouth once dailythiamine (Vitamin B-1) 100 MG tablet Indications: Bilateral carpal tunnel syndrome Take 1 tablet (100 mg) by mouth Daily 30 tablet 11 10/23/2024 10/23/2025 Activetolterodine tartrate 1 mg oral tablet (20 sources)Cholinergic Muscarinic AntagonistStart: 68-08-5501sgsj 1 tablet by mouth twice dailyTolterodine 1 mg tablet Active 0 .ROUTE .COMPLEX 60 July 29, 2024 3:43pm TAKE 1 TABLET BY MOUTH TWICE A DAY Complies with drug therapyStart: 07-06-2024 End: 35-97-1617pjtc 1 tablet by mouth twice dailyTolterodine 1 mg tablet Discontinued 1 MG PO Twice daily 60 July 06, 2024 1:00am July 29, 2024 3:43pmStart: 07-28-2023 End: 60-00-6970wkuf 1 tablet by mouth twice dailyTolterodine 2 mg tablet Discontinued 2 MG PO Twice daily 60 July 28, 2023 10:14am September 07, 2023 7:32amStart: 07-16-2022 End: 73-65-5144rcfclhrrgtw (Detrol) 2 mg tablettraMADol hydrochloride 50 mg oral tablet (20 sources)Opioid AgonistStart: 09-67-1145hjwr 1 tablet by mouth every eight hours as needed for painTramadol 50 mg tablet Active 50 MG PO Every 8 hours as needed for pain 90 December 07, 2024 12:00am Complies with drug therapyStart: 11-04-2021 End: 64-59-1200ntvq 1 tablet by mouth twice dailyTramadol 50 mg tablet Discontinued 50 MG PO Twice daily March 16, 2022 1:00am April 01, 2022 11:36amStart: 03-18-2021 End: 26-15-6751huvu 1 tablet by mouth every six hoursTramadol 50 mg tablet Discontinued 50 MG PO Every 6 hours June 29, 2023 1:00am October 11, 2023 6:10pmStart: 10-04-2020 End: 94-34-6786hmvz 1 tablet by mouth twice dailyTramadol 50 mg tablet Discontinued 50 MG PO Twice daily October 04, 2020 12:00am October 09, 2021 12:22pm Comment on above:every 6 hours as needed.traZODone hydrochloride 50 mg oral tablet (20 sources)Serotonin Reuptake InhibitorStart: 08-45-2103oron 0.5-1 tablets by mouth once daily at bedtimeTrazodone 50 mg tablet Active 0 .ROUTE .COMPLEX December 24, 2024 6:14pm TAKE 1/2 - 1 TABLET BY MOUTH EVERYDAY AT BEDTIME Complies with drug therapyStart: 09-29-2024 End: 05-92-0434wzav 2 tablets by mouth once daily at bedtimeTrazodone 50 mg tablet Discontinued 100 MG PO Daily at bedtime 180 September 29, 2024 12:03pm November 14, 2024 3:26pmStart: 06-22-2024 End: 04-06-9361usag 0.5-1 tablets by mouth once daily at bedtimeTrazodone 50 mg tablet Discontinued 0 .ROUTE .COMPLEX June 22, 2024 8:08am September 29, 2024 12:04pm TAKE 1/2 - 1 TABLET BY MOUTH EVERYDAY AT BEDTIMEStart: 06-05-2024 End: 49-92-7350ebwx 1 tablet by mouth at bedtimeTrazodone 100 mg Tablet Discontinued 100 MG PO time June 05, 2024 1:00am June 22, 2024 8:08amStart: 03-28-2024 End: 72-02-3348nqgEWZpur (Desyrel) 50 MG tablet 03/28/2024 ActiveStart: 12-31-2023 End: 81-85-1384bfmf 0.5-1 tablets by mouth once daily at bedtimeTrazodone 50 mg tablet Discontinued 0 .ROUTE .COMPLEX December 31, 2023 1:35pm April 07, 2024 6:45pm TAKE 1/2 - 1 TABLET BY MOUTH EVERYDAY AT BEDTIMEStart: 12-31-2023 End: 23-95-2308hntm 0.5-1 tablets by mouth once daily at bedtime as needed Trazodone 50 mg tablet Discontinued 50 MG PO Daily at bedtime as needed December 31, 2023 12:00am December 31, 2023 1:35pm 1/2 to 1 tabletStart: 03-26-2023 End: 26-78-8514twvq 1 tablet by mouth once daily at bedtime as neededTrazodone 50 mg tablet Discontinued 50 MG PO Daily at bedtime as needed for sleeplessness March 26, 2023 1:00am April 19, 2023 3:08pm Completed/Discontinued Medications MedicationDrug Class(es)DatesSig (Normalized)Sig (Original)aluminum hydroxide 40 mg/ml / magnesium hydroxide 40 mg/ml / simethicone 4 mg/ml oral suspension (20 sources)Start: 04-15-2023 End: 73-59-9758gagw 1 mL by mouth every four hours as needed for gastroesophageal reflux diseaseAlum-Mag Hydroxide-Simeth (Mag-Al Plus) 200-200-20 mg/5 mL Suspension Discontinued 30 ML PO Q4H as needed for Heartburn 0 April 15, 2023 1:00am April 19, 2023 3:08pmaspirin 81 mg delayed release oral tablet (20 sources)Platelet Aggregation Inhibitor, Nonsteroidal Anti-inflammatory Drug Start: 75-56-3372mjky 1 tablet by mouth once dailyAspirin 81 mg Tablet,Delayed Release (Dr/Ec) Active 81 MG PO Daily April 09, 2023 1:00am On Hold: HOLD until hematoma resolves Complies with drug therapyAspir-Low Activebaclofen 20 mg oral tablet (20 sources)gamma-Aminobutyric Acid-ergic AgonistStart: 09-14-2023 End: 07-36-3081jhwg 1 tablet by mouth once daily at bedtimeBaclofen 20 mg tablet Discontinued 0 .ROUTE .COMPLEX 90 June 02, 2024 8:24am November 14, 2024 3: 26pm TAKE 1 TABLET BY MOUTH EVERYDAY AT BEDTIMEStart: 06-03-2020 End: 75-90-3249fgku 1 tablet by mouth once daily at bedtimeBaclofen 20 mg tablet Discontinued 20 MG PO Daily at bedtime August 12, 2023 12:00am August 11 7:49pmComment on above:Take 1 tablet by mouth daily at bedtime.carvedilol 6.25 mg oral tablet (20 sources)alpha-Adrenergic Omi, beta-Adrenergic BlockerStart: 11-02-2024 End: 33-46-1426hcce 1 tablet by mouth twice daily at mealtimeCarvedilol (Coreg) 6.25 mg tablet Discontinued 6.25 MG PO Twice daily November 02, 2024 12:00am November 14, 2024 3:26pm must administer with a meal/foodStart: 06-05-2024 End: 40-60-5281yeup 1 tablet by mouth twice daily at mealtimeCarvedilol 3.125 mg Tablet Discontinued 3.125 MG PO Twice daily with meals 60 June 05, 2024 1:00am June 29, 2024 11:07amStart: 06-16-2023 End: 88-95-0078qmtv 1 tablet by mouth twice dailyCarvedilol 6.25 mg tablet Discontinued 0 .ROUTE .COMPLEX 180 June 02, 2024 8:24am June 05, 2024 2:27pm TAKE 1 TABLET BY MOUTH TWICE A DAYStart: 06-18-2016 End: 90-65-7149clsc 1 tablet by mouth twice dailyCarvedilol 6.25 mg tablet Discontinued 6.25 MG PO Twice daily October 04, 2020 12:00am June 2:53pmComment on above:Take 6.25 mg by mouth twice daily with meals.cephalexin 500 mg oral capsule (20 sources)Cephalosporin AntibacterialStart: 10-09-2021 End: 43-79-7209jryt 1 capsule by mouth three times dailyCephalexin 500 mg capsule Discontinued 500 MG PO Three times daily October 09, 2021 12:00am March 16, 2022 11:56amcyclobenzaprine hydrochloride 10 mg oral tablet (20 sources)Muscle RelaxantStart: 04-15-2023 End: 71-96-9296wuea 1 tablet by mouth every eight hours as needed for muscle spasmsCyclobenzaprine 10 mg tablet Discontinued 10 MG PO Every 8 hours as needed for Spasms 01 03April 19, 2023 3:07pm September 07, 2023 7:30amStart: 04-01-2022 End: 18-01-9166yfks 1 tablet by mouth three times daily as needed for muscle spasmsCyclobenzaprine 10 mg tablet Discontinued 10 MG PO Three times daily as needed for back spasms April 01, 2022 1:00am March 26, 2023 2:36pm Start: 10-09-2021 End: 25-61-4940eeni 1 tablet by mouth three times daily as needed for muscle spasmsCyclobenzaprine 10 mg tablet Discontinued 10 MG PO Three times daily as needed for back spasms October 09, 2021 12:00am March 16, 2022 11:58am docusate sodium 50 mg / sennosides, [facility] 8.6 mg oral tablet (20 sources)Start: 04-15-2023 End: 27-98-7561gbxa 2 tablets by mouth twice dailySennosides-Docusate Sodium 8.6-50 mg Tablet Discontinued 2 TAB PO Twice daily April 3:07pm April 07, 2024 6:39pmdoxycycline monohydrate 100 mg oral capsule (20 sources)Tetracycline-class DrugStart: 03-28-2024 End: 27-79-9239eftr 1 capsule by mouth twice dailyDoxycycline Monohydrate 100 mg capsule Discontinued 100 MG PO Twice daily April 04, 2024 1:00amMay 12, 2024 8:01pmStart: 11-01-2023 End: 87-19-2327uflr 1 tablet by mouth twice dailyDoxycycline Hyclate 100 mg tablet Discontinued 100 MG PO Twice daily 19 02November 01, 2023 12:00am April 04, 2024 3:26pmenalapril maleate 5 mg oral tablet (20 sources)Angiotensin Converting Enzyme InhibitorStart: 11-14-2024 End: 78-43-9648wlfb 1 tablet by mouth twice dailyEnalapril Maleate (Vasotec) 5 mg Tablet Discontinued 5 MG PO Twice daily November 14, 2024 12:00am January 09, 2025 4:14pm On Hold: HOLD given low BPs. May need to discontinue completely. F/u withPCPStart: 03-02-2023 End: 12-37-8989ztnl 1 tablet by mouth twice dailyEnalapril Maleate 2.5 mg tablet Discontinued 2.5 MG PO Twice daily March 26, 2023 1:00am 2024 2:49pm On Hold: Resume on 06/12/24.ferrous sulfate 324 mg delayed release oral tablet (4 sources)Start: 11-30-2024 End: 93-35-4406jjoc 1 tablet by mouth once dailyFerrous Sulfate 324 mg (65 mg iron) Tablet,Delayed Release (Dr/Ec) Discontinued 324 MG PO Daily 0 November 30, 2024 12:00am January 11, 2025 4:19pmfluconazole 200 mg oral tablet (5 sources)Azole AntifungalStart: 11-14-2024 End: 63-39-5939nvkz 1 tablet by mouth once dailyFluconazole 200 mg tablet Discontinued 200 MG PO Daily November 14, 2024 12:00am November 30, 2024 10:32am hydroCHLOROthiazide 25 mg oral tablet (20 sources)Thiazide DiureticStart: 04-17-2020 End: 76-10-3319kftf 1 tablet by mouth once dailyHydrochlorothiazide 25 mg tablet Discontinued 25 MG PO Daily October 04, 2020 12:00am April 19, 2023 3:08pm End: 26-34-1271zkno 1 capsule by mouth once dailyhydroCHLOROthiazide (Microzide) 12.5 mg capsule Take 1 capsule (12.5 mg) by mouth once daily. 0 03/02/2023 Discontinued (Therapy completed)Comment on above:Take 25 mg by mouth once daily. hydrocortisone 25 mg/ml topical lotion (4 sources)CorticosteroidStart: 11-30-2024 End: 65-77-5773Bhymchkbpuvqrc 2.5 % Lotion Discontinued 1 APPLIC TOPICAL Four times daily as needed for itching 0 November 30, 2024 12:00am January 11, 2025 4:19pmiv contrast (will be provided with radiology test) (3 sources)Start: 05-09-2020 End: 27-54-6744gl contrast (will be provided with radiology test) [...] 0 05/09/2020 06/22/2023 Discontinued (Discontinued by Patient)Start: 67-77-3620rl contrast (will be provided with radiology test) [...] mg/mg topical ointment (4 sources)Start: 11-30-2024 End: 65-14-4528Bnts A And D-White Pet-Lanolin Ointment Discontinued 1 APPLIC TOPICAL Twice daily 0 November 302:00am January 11, 2025 4:21pm latanoprost 0.05 mg/ml ophthalmic solution (20 sources)Prostaglandin AnalogStart: 10-04-2020 End: 73-82-0959cwnz 1 drop(s) into the eye(s) once dailyLatanoprost 0.005 % drops Discontinued 1 DROPS EYE-BOTH Daily October 04, 2020 12:00am March 16, 2022 11:59amStart: 10-04-2020 End: 40-00-8107qhqo 1 drop(s) into the eye(s) once dailyLatanoprost 0.005 % drops Discontinued 1 DROPS EYE-BOTH Daily October 04, 2020 12:00am March 16, 2022 11:59amStart: 10-04-2020 End: 19-21-9076goyx 1 drop(s) into the eye(s) once dailyLatanoprost Discontinued 1 DROPS EYE-BOTH Daily October 04, 2020 12:00am March 16, 2022 11:59amStart: 11-18-2019 End: 40-93-0794jbpg 1 drop(s) into the eye(s) once dailylatanoprost (XALATAN) 0.005 % ophthalmic solution INSTILL 1 DROP INTO BOTH EYES EVERY DAY DIRECTED 0 11/18/2019 06/23/2023 Discontinued (Discontinued by Patient) End: 26-55-3487xpta 1 drop(s) into the eye(s) at bedtimelatanoprost [...] (20 sources)Angiotensin Converting Enzyme InhibitorStart: 07-03-2024 End: 65-68-3379eayp 1 tablet by mouth once dailyLisinopril 2.5 mg tablet Discontinued 2.5 MG PO Daily 90 90 August 21, 2024 9:08am November 1453:26pm End: 78-36-9340yecqlttreh 5 MG tablet Take by mouth Daily 10/23/2024 Discontinued (Therapy completed)LISINOPRIL ORAL Take by mouth. Activemagnesium hydroxide 80 mg/ml oral suspension (20 sources)Start: 04-15-2023 End: 64-10-3091hktx 1 mL by mouth at bedtime as needed for constipationMagnesium Hydroxide (Milk Of Magnesia) 400 mg/5 mL Suspension Discontinued 30 ML PO Bedtime as needed for Constipation 0 April 15, 2023 1:00am April 19, 2023 3:08pmStart: 04-15-2023 End: 82-16-0269ukee 1 mL by mouth at bedtime as needed for constipationMagnesium Hydroxide (Milk Of Magnesia) 400 mg/5 mL Suspension Discontinued 30 ML PO Bedtime as needed for Constipation 0 April 15, 2023 1:00am April 19, 2023 3:08pmStart: 04-15-2023 End: 52-95-4376fswn 1 mL by mouth at bedtime as needed for constipationMagnesium Hydroxide (Milk Of Magnesia) 400 mg/5 mL Suspension Discontinued 30 ML PO Bedtime as needed for Constipation 0 April 15, 2023 12:00am April 19, 2023 2:08pmStart: 04-15-2023 End: 70-17-6019nzom 1 mL by mouth at bedtimeMagnesium Hydroxide (Milk Of Magnesia) 400 mg/5 mL Suspension Discontinued 30 ML PO Bedtime 0 April 15, 2023 1:00am April 19, 2023 3:08pmStart: 04-15-2023 End: 53-47-8986cshq 1 mL by mouth at bedtimeMagnesium Hydroxide (Milk Of Magnesia) 400 mg/5 mL Suspension Discontinued 30 ML PO Bedtime 0 April 15, 2023 12:00am April 19, 2023 2:08pmmagnesium oxide 400 mg oral tablet (5 sources)Start: 11-14-2024 End: 46-25-9500kgxf 1 tablet by mouth once dailyMagnesium Oxide 400 mg (241.3 mg magnesium) Tablet Discontinued 400 MG PO Daily 0 November 14, 2024 12:00am January 11, 2025 4:19pmmethylPREDNISolone 4 mg oral tablet (15 sources)CorticosteroidStart: 06-29-2024 End: 20-58-1565rvzp 1 tablet by mouth onceMethylprednisolone (Medrol (Jeremy)) 4 mg tablets,dose pack Discontinued 0 PO per package directions June 29, 2024 1:00am July 24, 2024 11:16am PO PER PKG DIR for 6 days End: 25-37-3871nwav 1 tablet by mouth in the morningmethylPREDNISolone (Medrol) 4 MG tablet Take 4 mg by mouth in the morning. 03/08/2024 Discontinued (Therapy completed)metOLazone 2.5 mg oral tablet (20 sources)Thiazide-like DiureticStart: 03-28-2024 End: 28-34-4095jhmp 1 tablet by mouth once dailyMetolazone 2.5 mg tablet Discontinued 2.5 MG PO Daily April 04, 2024 1:00am July 03, 2024 2:51pm On Hold: Resume on 06/12/24.24 hr mirabegron 25 mg extended release oral tablet (10 sources)beta3-Adrenergic AgonistStart: 07-04-2024 End: 18-99-6675rmvk 1 tablet by mouth once dailyMirabegron (Myrbetriq) 25 mg tablet extended release 24 hr Discontinued 25 MG PO Daily July 04, 2024 1:00am July 06, 2024 12:58pm24 hr oxybutynin chloride 15 mg extended release oral tablet (20 sources)Cholinergic Muscarinic AntagonistStart: 03-16-2022 End: 14-47-4053ukir 1 tablet by mouth once dailyOxybutynin Chloride 15 mg tablet extended release 24hr Discontinued 15 MG PO Daily March 16, 2022 1:00am March 26, 2023 2:38pmoxyCODONE hydrochloride 5 mg oral tablet (20 sources)Opioid AgonistStart: 04-15-2023 End: 76-88-3045uxqn 1 tablet by mouth every six hours as needed for pain Oxycodone 5 mg tablet Discontinued 5 MG PO Every 6 hours as needed for Pain (Scale Score 7-10) 20 5December 2022September 07, 2023 7:31amStart: 04-15-2023 End: 58-42-0786rkdv 2 tablets by mouth every six hours as needed for pain Oxycodone 5 mg tablet Discontinued 10 MG PO Every 6 hours as needed for Pain Scale 7-10 April 15, 2023 5:33pm April 19, 2023 3:08pmStart: 04-15-2023 End: 87-98-6568azww 10 mg by mouth every six hoursOxycodone Discontinued 10 MG PO Every 6 hours April 15, 2023 5:33pm April 19, 2023 3:08pmStart: 04-01-2022 End: 52-15-0322zuut 5-10 mg by mouth every six hours as needed for painOxycodone 5 mg tablet Discontinued 5 - 10 MG PO Q6H as needed for Pain 40 8 April 01, 2022 March 26, 2023 2:38pmStart: 10-09-2021 End: 15-36-6416gaab 5-10 mg by mouth every six hours as needed for painOxycodone 5 mg Tablet Discontinued 5 - 10 MG PO Q6H as needed for Pain 40 8 October 09, 20212021 12:00pmpsyllium 3400 mg powder for oral suspension (4 sources)Start: 11-30-2024 End: 41-71-9005Nmrqahpk Husk (Metamucil Fiber (Aspartame)) 3.4 gram Powder In Packet Discontinued 1 PACKET PO Daily 0 November 30, 2024 12:00am January 11, 2025 4:20pmsulfamethoxazole 800 mg / trimethoprim 160 mg oral tablet (20 sources)Dihydrofolate Reductase Inhibitor Antibacterial, Sulfonamide AntimicrobialStart: 07-64-3277eosr 1 tablet by mouth every twelve hoursBactrim DS 800-160 MG 1 tablet Orally Twice a day for 5 days May, Not-Taking/PRN Start: 04-01-2022 End: 23-15-3506jqez 1 tablet by mouth every twelve hoursSulfamethoxazole- Trimethoprim (Bactrim Ds) 800-160 mg tablet Discontinued 1 TAB PO Q12H 2021 1:00am March 26, 2023 2:39pmtorsemide 20 mg oral tablet (20 sources)Loop DiureticStart: 07-03-2024 End: 49-70-0936pydt 1 tablet by mouth every other dayTorsemide 20 mg tablet Discontinued 20 MG PO .QOD July 03, 2024 2:51pm September 18, 2024 12:49pmStart: 02-24-2024 End: 76-87-2641dqyb 1 tablet by mouth once dailyTorsemide 10 mg tablet Discontinued 10 MG PO Daily April 07, 2024 1:00am May 12, 2024 3:28pm On Hold: Resume on 04/16/24. Please hold until seen by your PCP/cardiology. Start: 03-02-2023 End: 50-24-7477hbjs 1 tablet by mouth once dailyTorsemide 20 [...] [Impaired mobility and activities of daily living]Onset: 499111-32-6523QktmbmllBxghbtt disorders (6 sources)Anxiety state; Translations: [Generalized anxiety disorder]Onset: 511118-39-2532YdooyxtLzxuga of breast (20 sources)Malignant neoplasm of female breast; Translations: [Malignant neoplasm of unspecified site of left female breast]Onset: 06-26-0004Hrynsnk Cataract (20 sources)After-cataract of bilateral eyes; Translations: [Other secondary cataract, bilateral]Onset: 130692-77-2195GcimvvqZhygnpj kidney disease (20 sources)Chronic kidney disease; Translations: [Chronic kidney disease, unspecified]Onset: 195032-35-3197ZliboydLudvhdk kidney disease (5 sources)Chronic kidney disease; Translations: [Chronic kidney disease, stage 3b]Onset: 23-51-6865Yprquuyfim disorders (20 sources)Left bundle branch block; Translations: [Other left bundle branch block]Onset: 192912-82-1378OytsjqrEafxzepnel heart failure; nonhypertensive (20 sources)Chronic diastolic heart failure; Translations: [Chronic diastolic (congestive) heart failure]Onset: 068449-32-2787RcytbweAqfubsz on above: Echo: LVEF 25-30%, normal RV size/function - 10/2024Deficiency and other anemia (20 sources)Anemia, unspecified; Translations: [Anemia, unspecified]Onset: 143479-45-3083XhryjnirZhgogvfpv of lipid metabolism (20 sources)Hypercholesterolemia; Translations: [Pure hypercholesterolemia, unspecified]Onset: 220806-27-7132RloawoiI Codes: Adverse effects of medical drugs (2 sources)Adverse effect of antineoplastic and immunosuppressive drugs, initial encounter; Translations: [ADVRS EFF ANTINEOPL IMMUNOSUP INIT]Onset: 02-09-2022 EpisodicEsophageal disorders (20 sources)Gastroesophageal reflux disease; Translations: [Gastro-esophageal reflux disease without esophagitis]Onset: 852955-27-8216WwplnihOauauqkgc hypertension (20 sources)Essential (primary) hypertension; Translations: [Essential hypertension]Onset: 020695-44-3578DnsowvcQsumanwsn hypertension (2 sources)Essential hypertensionOnset: 96-98-1194Jggtgcileuvdha ulcer (except hemorrhage) (1 source)Peptic ulcer without hemorrhage, without perforation AND without obstruction; Translations: [Pepticulcer, unspecified site, unspecified as acute or chronic, without mention of hemorrhage, perforation, or obstruction]Chronic Genitourinary symptoms and ill-defined conditions (5 sources)Dysuria; Translations: [Dysuria]EpisodicGlaucoma (20 sources)Primary open angle glaucoma; Translations: [Primary open-angle glaucoma, bilateral, mild stage]Onset: 637887-69-6155SalmvevLahkhand; including migraine (20 sources)Chronic tension-type headache; Translations: [Chronic tension-type headache, intractable]ChronicHeadache; including migraine (20 sources)Headache; Translations: [Headache, unspecified]Onset: 05-04-2014 20-08-9872FfbxjwfjSohef valve disorders (20 sources)Mitral valve regurgitation; Translations: [Mitral valve disorders] Onset: 772734-28-9233OahvknaHfuycgesxamu with complications and secondary hypertension (20 sources)Chronic kidney disease due to hypertension; Translations: [Hypertensive chronic kidney disease withstage 1 through stage 4 chronic kidney disease, or unspecified chronic kidney disease]Onset: 99-12-1430Byaecst Immunizations and screening for infectious disease (6 sources)Patient encounter status; Translations: [Other specified vaccination] Resolved: 88-23-3492GtzuwjhzHlnxwgpusavs; infection of eye (except that caused by tuberculosis or sexually transmitteddisease) (20 sources)Keratoconjunctivitis sicca; Translations: [Keratoconjunctivitis sicca, not specified as Sjogren's, bilateral]Onset: 20-13-895866401908-48-6762Nackqpu Malignant neoplasm without specification of site (18 sources)Malignant neoplastic disease; Translations: [Other malignant neoplasm without specification of site]Onset: hronic Menopausal disorders (1 source)Primary ovarian failure; Translations: [Other primary ovarian failure] Onset: 79-09-4507TxtzuesDowzirafshqhg mental health disorders (20 sources)Primary insomnia; Translations: [Primary insomnia]ChronicMood disorders (20 sources)Mild depression; Translations: [Mild depression]Onset: 01-31-2014 70-35-3411LeiicgaYszepoi (17 sources)Onychomycosis due to dermatophyte ; Translations: [Tinea unguium] Onset: 331758-64-6511ZmrkvqjqKujmqsjomodgn gastroenteritis (17 sources)Colitis; Translations: [Noninfective gastroenteritis and colitis, unspecified]Onset: 435404-46-5835WwtgqhseMludnogtufx deficiencies (20 sources)Vitamin D deficiency; Translations: [Vitamin D deficiency, unspecified]ChronicOsteoarthritis (20 sources)Arthropathy of left hip joint; Translations: [Unilateral primary osteoarthritis, left hip]Onset: 11-16-2007 Resolved: 21-03-6314HsoznuuHqqljgocalfl (20 sources)Senile osteoporosis; Translations: [Age-related osteoporosis without current pathological fracture]Onset: 08-07-2021 Resolved: 87-47-2869KfqyarpAyepy acquired deformities (20 sources)Spondylolysis; Translations: [Spondylolysis, lumbar region]Episodic Other aftercare (20 sources)H/O: high risk medication; Translations: [Other assisted (current) drug therapy]EpisodicOther aftercare (1 source)Long-term current use of drug therapy; Translations: [Other long term care administrator (current) drug therapy]EpisodicOther aftercare (15 sources)Drug therapy finding; Translations: [longterm (current) use of opiate analgesic]04-66-5674XowtacovTbmdc aftercare (2 sources)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; Translations: [Long-term (current) use of other medications]67-18-4228XmhirazxNphmg and ill-defined heart disease (19 sources)Left ventricular systolic dysfunction; Translations: [Heart disease, unspecified]Onset: 929241-80-4462SldibtiQlnwx and ill-defined heart disease (4 sources)Other ill-defined heart diseases; Translations: [Other ill-defined heart diseases]Onset: 49-55-3526AppuafvRxnhs and ill-defined heart disease (2 sources)Heart disease, unspecified; Translations: [Heart disease, unspecified]Onset: 29-07-6446MemavpiEbrcq bone disease and musculoskeletal deformities (1 source)Other specified disorders of bone density and structure, left forearm EpisodicOther circulatory disease (8 sources)Orthostatic hypotension; Translations: [Orthostatic hypotension] Onset: 650931-88-3023WptudyhgNloqf circulatory disease (12 sources)Low blood pressure; Translations: [Hypotension, unspecified] 68-25-9101BodfrojsCwxbv circulatory disease (1 source)Hypotension, unspecified; Translations: [Hypotension, unspecified] Onset: 13-10-1744KkyzfudnLxhtc congenital anomalies (1 source)Congenital spondylolysis of lumbosacral region; Translations: [Congenital spondylolysis, lumbosacral region]Onset: 89-79-0574QlqfzxiSudft connective tissue disease (1 source)Presence of artificial knee joint, bilateral; Translations: [PRESENCE ARTIFICIAL KNEE JNT BILAT]Onset: 00-93-0993DzcqrkfZgyqa connective tissue disease (20 sources)Cramp in lower limb; Translations: [Sleep related leg cramps]Onset: 777886-88-3881YngbhvyJjrrx connective tissue disease (7 sources)Sleep related leg cramps; Translations: [Sleep related leg cramps] 28-51-2251JzorpdfWrfnw connective tissue disease (7 sources)History of total knee arthroplasty; Translations: [Presence of left artificial knee joint]23-53-5396HcdrwkgXgqsf connective tissue disease (10 sources)Presence of left artificial knee joint; Translations: [Knee joint replacement]Onset: 232985-93-4567RlrhlpxAvsbh connective tissue disease (12 sources)History of left total knee replacement; Translations: [Presence of left artificial knee joint]Onset: 132426-71-2621RckrshrBvwmf connective tissue disease (20 sources)Arthrodesis status; Translations: [Arthrodesis status]EpisodicOther connective tissue disease (7 sources)Foot pain; Translations: [Pain in left foot]74-85-2434SzgeseiaKovyk connective tissue disease (7 sources)Pain in left foot; Translations: [Pain in limb]32-97-5117Ldinopri Other connective tissue disease (1 source)Pain in both feet; Translations: [Pain in right foot]05-16-2024 EpisodicOther connective tissue disease (8 sources)Other bursitis of knee, left knee; Translations: [Pes anserinus tendinitis or bursitis]64-94-3966HixaonhyQdceb connective tissue disease (4 sources)Pain in toe; Translations: [Pain in right toe(s)]26-30-0048Pxqgepat Other connective tissue disease (2 sources)Capsulitis; Translations: [Other enthesopathies, not elsewhere classified]34-19-5056VjllorhvHqnkc connective tissue disease (9 sources)Weakness of right hand; Translations: [Other symptoms and signs involving the musculoskeletal system]28-78-4031JbtvtgaxZtkcq connective tissue disease (2 sources)Subacromial impingement; Translations: [Impingement syndrome of right shoulder]82-11-8774JizsuuqfLvost diseases of bladder and urethra (20 sources)Overactive bladder; Translations: [Overactive bladder]ChronicOther diseases of bladder and urethra (2 sources)Overactive bladderChronicOther diseases of veins and lymphatics (1 source)Lymphedema, not elsewhere classified; Translations: [LYMPHEDEMA NOT ELSEWHERE CLASSIFIED]Onset: 03-21-7953IbyexxpKigpp diseases of veins and lymphatics (6 sources)Peripheral venous insufficiency; Translations: [Unspecified venous (peripheral) insufficiency]Onset: 33-13-5717NcconorcEthfg diseases of veins and lymphatics (20 sources)Venous insufficiency (chronic) (peripheral); Translations: [Venous (peripheral) insufficiency, unspecified]Onset: 88-86-5713BydpgdmhXwcrm ear and sense organ disorders (1 source)Sensorineural hearing loss, bilateral; Translations: [Sensorineural hearing loss, bilateral]Onset: 11-70-7411WbquudzUoelw ear and sense organ disorders (1 source)Sensorineural hearing loss; Translations: [Unspecified sensorineural hearing loss]ChronicOther ear and sense organ disorders (1 source)Impacted cerumen; Translations: [Impacted cerumen, left ear]Episodic Other ear and sense organ disorders (2 sources)Tinnitus, bilateral; Translations: [Tinnitus, unspecified]03-01-2024 EpisodicOther gastrointestinal disorders (6 sources)Irritable bowel syndrome; Translations: [Irritable bowel syndrome without diarrhea]Onset: 047857-91-5143RxmdrypOhsrr gastrointestinal disorders (20 sources)Constipation; Translations: [Constipation, unspecified]EpisodicOther gastrointestinal disorders (20 sources)Dysphagia; Translations: [Dysphagia, unspecified]EpisodicOther injuries and conditions due to external causes (2 sources)History of fall; Translations: [Personal history of fall]Onset: 62-85-9524NxmkspbmJyopp injuries and conditions due to external causes (7 sources)Other injury of unspecified body region, initial encounter; Translations: [Contusion of unspecifiedsite]Onset: 872647-76-8908Imrbfbtr Other injuries and conditions due to external causes (8 sources)Hematoma; Translations: [Other injury of unspecified body region, initial encounter]40-68-7335WxhdulsdHdmcy liver diseases (14 sources)Elevated liver enzymes level; Translations: [High liver transaminase level]08-13-9531HcesxvlwRdhtr lower respiratory disease (8 sources)Dyspnea; Translations: [Dyspnea, unspecified]10-18-8497FnsfwbwfLwjwz nervous system disorders (20 sources)Chronic pain; Translations: [Other chronic pain]Onset: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 Fraction] of Blood by Automated countOrdered By: Danyelle Mathews on 45-25-4992Knwdqripch (Bld) [Volume fraction]35.5 %Normal 34.0-46.4FOhioHealth Mansfield HospitalComment on above:Performed By: #### BMP, CBCNO ####[address] [address] USAHemoglobin [Mass/volume] in BloodOrdered By: Danyelle Mathews on 01-11-2025 Hemoglobin (Bld) [Mass/Vol]11.7 g/dLLow11.8-15.4FOhioHealth Mansfield HospitalComment on above:Performed By: #### BMP, CBCNO ####[address] [address]RKXDkdkqaok CBC Without Diffon 30-41-7898Mfve Corpuscular HGB Conc32.9 g/pDCjfmgh16.0-35.0The [facility] Physician GroupComment on above:Performed By: #### JOSE, CBCNO ####[address] [address]WWRDgkir Blood Count7.9 [CFU]/mLNormal3.8-11.6The [facility] HospitalComment on above:Performed By: #### BMP, CBCNO ####[address] [address]MEZGcrlixnyue [#/volume] corrected for nucleated erythrocytes in Blood by Automated counOrdered By: Danyelle Mathews on 49-10-1322EGU corrected for nucl RBC Auto (Bld) [#/Vol]7.9 10*3/uL3.8-11.6FOhioHealth Mansfield HospitalMCH [Entitic mass] by Automated countOrdered By: Danyelle Mathews on 13-48-1773DBW (RBC) [Entitic mass]29.4 fsZofxgf29.7-34.3FOhioHealth Mansfield HospitalComment on above:Performed By: #### JOSE, CBCNO ####[address] [place], [place] [address]VWIZVYA Auto (RBC) [Mass/Vol]Ordered By: Danyelle Mathews on 24-38-6017XXCI (RBC) [Mass/Vol]32.9 g/dL32.0-35.0[facility] TownshipMCV [Entitic volume] by Automated countOrdered By: Danyelle Mathews on 93-97-6261TCQ (RBC) [Entitic vol]89.4 eBThzdzm15-548EdesztersKettering Health Washington TownshipComment on above:Performed By: #### JOSE, CBCNO ####[address] [place], [place] [address]LVWSl Panel InformationOrdered By: Danyelle Mathews on 03-95-3445Moqxgvph Creatinine Clearance (ChemN/[facility] HospitalPlatelet mean volume [Entitic volume] in Blood by Automated countOrdered By: Danyelle Mathews on 40-74-6756Zfelmnug mean volume (Bld) [Entitic vol]8.6 fLNormal6.3-10.7FOhioHealth Mansfield HospitalComment on above:Result Comment: PERFORMED BY:[address] [place], [place] [phone] MEDICAL DIRECTORCARLOS VÁZQUEZ M.D.Performed By: #### JOSE, DERICKNO ####[address] [place], [place] [address]YVGUwcdkyyoz [#/volume] in Blood by Automated count Ordered By: Danyelle Mathews on 34-45-9782Klogrkizu (Bld) [#/Vol]336 10*3/uLNormal 150-450K[facility] Health Washington TownshipComment on above:Performed By: #### JOSE, CBCNO ####[address] [place], [place] [address]RSQ Potassium [Moles/volume] in Serum or PlasmaOrdered By: Danyelle Mathews on 42-43-6849Thripfphw [Moles/Vol]4.8 mmol/LNormal3.5-5.1FOhioHealth Mansfield HospitalComment on above:Performed By: #### WOODY GARCIA ####[address] [address] [address] Hinojosafirsthealth montgomery memorial hospitalkathleenLOM[place], [place] [address]CCKXdyae or plasma anion gap determinationOrdered By: Danyelle Mathews on 17-68-2104Cnngr gap [Moles/Vol]12.9 mmol/LNormal6.0-15.0[facility] TownshipComment on above:Performed By: #### JOSE CBCNO ####[address] [address] [address] Hinojosafirsthealth montgomery memorial hospitalkathleenLOM[place], [place] [address]SDZVfkptg [Moles/volume] in Serum or PlasmaOrdered By: Danyelle Mathews on 80-52-1138Yzpoxa [Moles/Vol]138 mmol/CPdngje557-915BwgbnvldaKettering Health Washington TownshipComment on above:Performed By: #### JOSE CBCNO ####[address] [address] Micaelafirsthealth montgomery memorial hospitalkathleenL[place], [place] [address]IKXZpij nitrogen [Mass/volume] in Serum or PlasmaOrdered By: Danyelle Mathews on 84-23-4763Xdkx nitrogen [Mass/Vol]27 mg/dLHigh7-25K[facility] Washington TownshipComment on above:Performed By: #### WOODY GARCIA ####[address] [address] [address] Hinojosafirsthealth montgomery memorial hospitalkathleenLOM[place], [place] [address]ZSWVxpfq Metabolic Panelon 91-43-6395Tgrgo gap [Moles/Vol]13.5 mmol/LNormal 6.0-15.0The [facility] Health Physician GroupComment on above:Performed By: #### BMP ####[address] Hinojosafirsthealth montgomery [place] [address] USACalcium [Mass/Vol]8.1 mg/dLLow8.6-10.3The [facility] Physician GroupComment on above: Performed By: #### BMP ####[address] Micaelafirsthealth montgomery [place] [address] USAChloride [Moles/Vol]103 mmol/UIkguql87-637Wid [facility] Physician GroupComment on above:Performed By: #### BMP ####[address] Micaelafirsthealth montgomery [place] [address] USACO2 [Moles/Vol]26.8 mmol/ESmnepm51.0-31.0The [facility] Physician GroupComment on above:Performed By: #### BMP ####[address] [address] USACreatinine [Mass/Vol]0.73 mg/dLNormal0.60-1.20ThValor Health Physician Group Comment on above:Performed By: #### BMP ####[address] [address] USACreatinine Clr Calc Isybiyrt62.02NormCleveland Clinic Martin South Hospital Physician GroupComment on above:Result Comment: PERFORMED BY:[address] ABHISHEKGaloRadhaHUI, [place] [phone] MEDICAL DIRECTORCARLOS VÁZQUEZ M.D.Performed By: #### BMP ####[address] [address] USAGFR/1.73 sq M.predicted MDRD (S/P/Bld) [Vol rate/Area]mL/min/{1.73_m2}NormalThe Atrium Health Physician GroupComment on above:Performed By: #### BMP ####[address] [address] USAGlucose [Mass/Vol]82 mg/dL Wvtsgi38-401Jsc [facility] Physician GroupComment on above:Result Comment: Random Glucose Reference Range is dependent on time and content of last meal. Glucose of more than 200 mg/dL in a nonstressed, ambulatory subject supports the diagnosis of Diabetes Mellitus. ADA recommended reference rangePerformed By: #### BMP ####[address] [address] USAPotassium [Moles/Vol]4.3 mmol/LNormal3.5-5.1The [facility] Comment on above:Performed By: #### BMP ####[address] [address] USASodium [Moles/Vol]139 mmol/ERtrrkd306-679Hgz [facility] HospitalComment on above:Performed By: #### BMP ####[address] [address] USAUrea nitrogen [Mass/Vol]10 mg/dLNormal7-25The [facility] Health Physician GroupComment on above: Performed By: #### BMP ####[address] [address] USABasic Metabolic Panelon 10-39-2224Temug gap [Moles/Vol]14.6 mmol/LNormal6.0-15.0The [facility] Physician GroupComment on above:Order Comment: pt in PTPerformed By: #### BMP ####[address] [address] USACalcium [Mass/Vol]8.3 mg/dLLow 8.6-10.3The [facility] Physician GroupComment on above:Order Comment: pt in PT Performed By: #### BMP ####[address] [address] USAChloride [Moles/Vol]101 mmol/BEnasix57-227Flz [facility] Physician GroupComment on above:Order Comment: pt in PTPerformed By: #### BMP ####[address] [address] USACO2 [Moles/Vol]25.7 mmol/EDbzyle53.0-31.0The [facility] Physician GroupComment on above:Order Comment: pt in PTPerformed By: #### BMP ####[address] [address] USACreatinine [Mass/Vol]0.68 mg/dLNormal0.60-1.20The [facility] Physician GroupComment on above:Order Comment: pt in PTPerformed By: #### BMP ####[address] [address] USACreatinine Clr Calc Lwfdqkpq81.02NormalThValor Health Physician GroupComment on above:Order Comment: pt in PTResult Comment: PERFORMED BY:[address] [place], [place] [phone] MEDICAL JACKELYN VÁZQUEZ M.D.Performed By: #### BMP ####[address] [address] USAGFR/1.73 sq M.predicted MDRD (S/P/Bld) [Vol rate/Area]mL/min/{1.73_m2}Normal The [facility] Health Physician GroupComment on above:Order Comment: pt in PTPerformed By: #### BMP ####[address] [address] USAGlucose [Mass/Vol]112 mg/tFPtag86-054Yyx [facility] Comment on above:Order Comment: pt in PTResult Comment: Random Glucose Reference Range is dependent on time and content of last meal. Glucose of more than 200 mg/dL in a nonstressed, ambulatory subject supports the diagnosis of Diabetes Mellitus. ADA recommended reference rangePerformed By: #### BMP ####[address] [address] USAPotassium [Moles/Vol] 3.3 mmol/LLow3.5-5.1The [facility] Physician GroupComment on above:Order Comment: pt in PTPerformed By: #### BMP ####[address] [address] USASodium [Moles/Vol]138 mmol/RGokpzs283-017Xng [facility] Physician GroupComment on above:Order Comment: pt in PTPerformed By: #### BMP ####[address] [address] USAUrea nitrogen [Mass/Vol]11 mg/dLNormal7-25The [facility] Comment on above:Order Comment: pt in PTPerformed By: #### BMP ####[address] [address] USABasic Metabolic Panel on 44-54-3187Iegff gap [Moles/Vol]Not performedNormal6.0-15.0The [facility] Physician GroupComment on above:Performed By: #### BMP ####[address] [address] USACalcium [Mass/Vol]8.0 mg/dLLow 8.6-10.3The [facility] Physician GroupComment on above:Performed By: #### BMP ####[address] [address] [place] Chloride [Moles/Vol]105 mmol/QWuixfr52-313Lbh [facility] HospitalComment on above:Performed By: #### BMP ####[address] [address] USACO2 [Moles/Vol]25.3 mmol/IOjorvf85.0-31.0The [facility] Physician GroupComment on above:Performed By: #### BMP ####[address] [address] USACreatinine [Mass/Vol] 0.66 mg/dLNormal0.60-1.20The [facility] HospitalComment on above:Performed By: #### BMP ####[address] [address] USACreatinine Clr Calc Ldmulywv83.52NormalThe [facility] Comment on above:Result Comment: PERFORMED BY:[address] ABHISHEKGaloRadhaHUI, [place] [phone] MEDICAL JACKELYN VÁZQUEZ M.D.Performed By: #### BMP ####[address] [address] USAGFR/1.73 sq M.predicted MDRD (S/P/Bld) [Vol rate/Area]mL/min/{1.73_m2}NormalThe [facility] Comment on above:Performed By: #### BMP ####[address] [address] USAGlucose [Mass/Vol]67 mg/uCWon80-006Zds [facility] Physician GroupComment on above:Result Comment: Random Glucose Reference Range is dependent on time and content of last meal. Glucose of more than 200 mg/dL in a nonstressed, ambulatory subject supports the diagnosis of Diabetes Mellitus. ADA recommended reference rangePerformed By: #### BMP ####[address] [address] USA PotassiumNormal3.5-5.1The [facility] Physician GroupComment on above:Result Comment: Specimen hemolyzed, redraw requestedPerformed By: #### BMP ####[address] [address] USASodium Udyvqt446-451Xtw [facility] Physician GroupComment on above:Result Comment: Specimen hemolyzed, redraw requestedPerformed By: #### BMP ####[address] [address] USAUrea nitrogen [Mass/Vol]10 mg/dLNormal7-e [facility]ician GroupComment on above: Performed By: #### BMP ####[address] [address] USACT femur RT wo conon 82-85-2130QV femur RT wo con NormalAdventhealth Central Pasco Er Physician [facility] HospitalRedraw Potassiumon 74-63-7224Bcywtqgkl [Moles/Vol]3.4 mmol/LLow3.5-5.1The [facility] Physician GroupComment on above: Order Comment: PREVIOUS SPECIMEN HEMOLYZEDResult Comment: PERFORMED BY:[address] [place], [place] [phone] MEDICAL DIRECTORCARLOS VÁZQUEZ M.D.Performed By: #### REDRAW K, REDRAW NA ####[address] [address] USARedraw Sodiumon 72-58-9336Qjixqq [Moles/Vol]141 mmol/GTszpis017-260Kcq [facility] Physician GroupComment on above:Order Comment: PREVIOUS SPECIMEN HEMOLYZED Performed By: #### REDRAW K, REDRAW NA ####[address] [address] USAUS arterial duplex LE RTon 96-94-6311ZD arterial duplex LE RTNormalThClaiborne County Medical CenterBasic Metabolic Panelon 39-23-3886Wnyqz gap [Moles/Vol]11.9 mmol/LNormal6.0-15.0The [facility] Physician GroupComment on above:Performed By: #### BMP, CBC ####[address] [place] [address] USACalcium [Mass/Vol]8.4 mg/dLLow 8.6-10.3The [facility] Physician GroupComment on above:Performed By: #### BMP, CBC ####[address] [address] [place] Chloride [Moles/Vol]104 mmol/EKsrcch82-186Qcv [facility] Physician GroupComment on above:Performed By: #### BMP, CBC ####[address] USACO2 [Moles/Vol]28.2 mmol/RBugene22.0-31.0The [facility] Physician GroupComment on above:Performed By: #### BMP, CBC ####[address] [address] [place] Creatinine [Mass/Vol]0.68 mg/dLNormal0.60-1.20The [facility] Comment on above:Performed By: #### BMP, CBC ####[address] USACreatinine Clr Calc Dabeczme57.12 NormalThe [facility] Health Physician GroupComment on above:Result Comment: PERFORMED BY:[address] [place], [place] [phone] MEDICAL JACKELYN VÁZQUEZ M.D.Performed By: #### BMP, CBC ####[address] [address] [place] GFR/1.73 sq M.predicted MDRD (S/P/Bld) [Vol rate/Area]mL/min/{1.73_m2}NormalThe [facility] HospitalComment on above:Performed By: #### BMP, CBC ####[address] [address] USAGlucose [Mass/Vol]84 mg/nBYftqgd74-527Hpy [facility] Physician GroupComment on above: Result Comment: Random Glucose Reference Range is dependent on time and content of last meal. Glucose of more than 200 mg/dL in a nonstressed, ambulatory subject supports the diagnosis of Diabetes Mellitus. ADA recommended reference rangePerformed By: #### BMP, CBC ####[place] [address] USAPotassium [Moles/Vol]3.1 mmol/LLow3.5-5.1The [facility] Physician GroupComment on above:Performed By: #### BMP, CBC ####[place] [address] USASodium [Moles/Vol]141 mmol/CTguzwg187-947Jre [facility] Physician GroupComment on above: Performed By: #### BMP, CBC ####[place] [address] USAUrea nitrogen [Mass/Vol]9 mg/dLNormal7-25The [facility] Physician GroupComment on above:Performed By: #### BMP, CBC ####[address] Complete Blood Count Auto Diffon 82-68-0371Ouhinnsvn (Bld) [#/Vol]0.1 10*3/uL Normal0.0-0.2The [facility] Taylor HospitalComment on above:Result Comment: PERFORMED BY:[address] ABHISHEKSHEILAHUI, [place] [phone] MEDICAL DIRECTORCARLOS VÁZQUEZ M.D.Performed By: #### BMP, CBC ####[address] USABasophils/100 WBC (Bld)1.3 %Normal.The [facility] Physician GroupComment on above:Performed By: #### BMP, CBC ####[place] [address] USAEosinophils (Bld) [#/Vol]0.2 10*3/uLNormal 0.0-0.45The [facility] HospitalComment on above:Performed By: #### BMP, CBC ####[place] [address] [place] Eosinophils/100 WBC (Bld)2.7 %Normal.The [facility] Physician GroupComment on above:Performed By: #### BMP, CBC ####[place] [address] USAErythrocyte distribution width (RBC) [Ratio]20.7 % High11.9-15.3The [facility] Physician GroupComment on above:Performed By: #### BMP, CBC ####[place] [address] USAHematocrit (Bld) [Volume fraction]26.9 %Low34.0-46.4The [facility] Physician GroupComment on above:Performed By: #### BMP, CBC ####[place] [address] USAHemoglobin (Bld) [Mass/Vol]9.1 g/dLLow 11.8-15.4The [facility] Physician GroupComment on above:Performed By: #### BMP, CBC ####[place] [address] [place] Lymphocytes (Bld) [#/Vol]1.1 10*3/uLNormal1.00-4.8The [facility] Comment on above:Performed By: #### BMP, CBC ####[place] [address] USALymphocytes/100 WBC (Bld)13.6 %Normal. The [facility] Health Physician GroupComment on above:Performed By: #### BMP, CBC ####[address] USAMCH (RBC) [Entitic mass]29.9 zzKcpvgj84.7-34.3The [facility] Physician GroupComment on above:Performed By: #### BMP, CBC ####[place] [address] USAMCV (RBC) [Entitic vol]88.6 uCTrhsxz14-777Zts [facility] Physician GroupComment on above:Performed By: #### BMP, CBC ####[place] [address] USAMean Corpuscular HGB Conc33.7 g/kOZorjhu83.0-35.0The [facility] Physician GroupComment on above:Performed By: #### BMP, CBC ####[place] [address] USAMonocytes (Bld) [#/Vol]1.0 10*3/uLHigh0.0-0.8 The [facility] Physician GroupComment on above:Performed By: #### BMP, CBC ####[place] [address] [place] Monocytes/100 WBC (Bld)12.2 %Normal.The [facility] Physician GroupComment on above:Performed By: #### BMP, CBC ####[place] [address] USANeutrophils (Bld) [#/Vol]5.9 10*3/uLNormal1.8-7.7The [facility] Physician GroupComment on above:Performed By: #### BMP, CBC ####[place] [address] [place] Neutrophils/100 WBC (Bld)70.2 %Normal.The [facility] Physician GroupComment on above:Performed By: #### BMP, CBC ####[place] [address] USANRBC%0.1 /100{WBC}Normal0-0.5The [facility] Physician GroupComment on above:Performed By: #### BMP, CBC ####[place] [address] USAPlatelet mean volume (Bld) [Entitic vol]7.4 fLNormal6.3-10.7The [facility] Physician GroupComment on above: Performed By: #### BMP, CBC ####[place] [address] USAPlatelets (Bld) [#/Vol]640 10*3/aKExsr798-155Wjl [facility] Physician GroupComment on above:Performed By: #### BMP, CBC ####[address] USARBC (Bld) [#/Vol]3.04 10*6/uLLow3.60-5.00The [facility] Physician GroupComment on above:Performed By: #### BMP, CBC ####[place] [address] USAWBC (Bld) [#/Vol]8.5 10*3/uLNormal3.8-11.6The [facility] Physician GroupComment on above:Performed By: #### BMP, CBC ####[place] [address] USAWhite Blood Count8.5 [CFU]/mLNormal3.8-11.6The [facility] Physician GroupComment on above:Performed By: #### BMP, CBC ####[address] USAECG 12 lead ECGon 85-84-0409PLY 12 lead ECGNormalThe [facility] Taylor HospitalBasic Metabolic Panelon 72-90-3710Pvnlh gap [Moles/Vol]15.7 mmol/LHigh6.0-15.0The [facility] Physician GroupComment on above: Performed By: #### DIFF CBC, BMP ####[place] [address] USACalcium [Mass/Vol]7.9 mg/dLLow8.6-10.3The [facility] Physician GroupComment on above:Performed By: #### DIFF CBC, BMP ####[address] USAChloride [Moles/Vol] 101 mmol/LGsgspi65-862Ygk [facility] Physician GroupComment on above:Performed By: #### DIFF CBC, BMP ####[place] [address] USACO2 [Moles/Vol]24.2 mmol/HRbigmt19.0-31.0The [facility] Physician GroupComment on above:Performed By: #### DIFF CBC, BMP ####[place] [address] [place] Creatinine [Mass/Vol]0.72 mg/dLNormal0.60-1.20The [facility] Comment on above:Performed By: #### DIFF CBC, BMP ####[address] [place] [address] USACreatinine Clr Calc Eposannu44.43 NormalThe [facility] Health Physician GroupComment on above:Result Comment: PERFORMED BY:[address] [place], [place] [phone] MEDICAL JACKELYN VÁZQUEZ M.D.Performed By: #### DIFF CBC, BMP ####[address] [place] [address] USAGFR/1.73 sq M.predicted MDRD (S/P/Bld) [Vol rate/Area]mL/min/{1.73_m2}Normal The [facility] Physician GroupComment on above:Performed By: #### DIFF CBC, BMP ####[address] [address] USAGlucose [Mass/Vol]70 mg/gEKbiarn11-420Mhf [facility] Physician GroupComment on above: Result Comment: Random Glucose Reference Range is dependent on time and content of last meal. Glucose of more than 200 mg/dL in a nonstressed, ambulatory subject supports the diagnosis of Diabetes Mellitus. ADA recommended reference rangePerformed By: #### DIFF CBC, BMP ####[address] [address] USAPotassium [Moles/Vol]3.9 mmol/LNormal3.5-5.1 The [facility] Physician GroupComment on above:Performed By: #### DIFF CBC, BMP ####[address] [address] USASodium [Moles/Vol]137 mmol/KKhvjii411-589Gcg [facility] Physician GroupComment on above: Performed By: #### DIFF CBC, BMP ####[address] [address] USAUrea nitrogen [Mass/Vol]11 mg/dLNormal7-25The [facility] Physician GroupComment on above:Performed By: #### DIFF CBC, BMP ####[address] [address] USADiff and CBCon 85-20-4493Fulgykpccynv Ql (Bld)MarkedNoNovant Health Rehabilitation Hospital Physician GroupComment on above:Performed By: #### DIFF CBC, BMP ####[address] [address] USABand form neutrophils/100 WBC (Bld)3 %Normal0-5The [facility] Physician GroupComment on above:Performed By: #### DIFF CBC, BMP ####[address] [address] USAEosinophils/100 WBC (Bld)1 %Normal1-3The [facility] Comment on above:Performed By: #### DIFF CBC, BMP ####[address] [address] USAErythrocyte distribution width (RBC) [Ratio]20.3 %High11.9-15.3The [facility] Physician GroupComment on above: Performed By: #### DIFF CBC, BMP ####[address] [address] USAHematocrit (Bld) [Volume fraction]25.7 %Low34.0-46.4 The [facility] Physician GroupComment on above:Performed By: #### DIFF CBC, BMP ####[address] [address] [place] Hemoglobin (Bld) [Mass/Vol]8.6 g/dLLow11.8-15.4The [facility] Comment on above:Performed By: #### DIFF CBC, BMP ####[address] [address] USAHypochromasiaSlightNoNovant Health Rehabilitation Hospital Physician GroupComment on above:Performed By: #### DIFF CBC, BMP ####[address] [address] [place] Lymphocytes/100 WBC (Bld)10 %Cch59-69Pwi [facility] Physician GroupComment on above:Performed By: #### DIFF CBC, BMP ####[address] [address] [facility] [place] [Entitic mass]29.7 ndLleict21.7-34.3 The [facility] Physician GroupComment on above:Performed By: #### DIFF CBC, BMP ####[address] [address] [facility] CENTERMCV (RBC) [Entitic vol]88.7 kPFihtrj80-263Ene [facility] Physician GroupComment on above:Performed By: #### DIFF CBC, BMP ####[address] [address] USAMean Corpuscular HGB Conc33.4 g/dLNormal 32.0-35.0The [facility] Physician GroupComment on above:Performed By: #### DIFF CBC, BMP ####[address] [address] USAMetamyelocytes2 %High0-0The [facility] Physician GroupComment on above: Performed By: #### DIFF CBC, BMP ####[address] [address] USAMonocytes/100 WBC (Bld)9 %Normal2-11The [facility] Physician GroupComment on above:Performed By: #### DIFF CBC, BMP ####[address] [address] USAMyelocytes3 %High0-0 The [facility] Physician GroupComment on above:Performed By: #### DIFF CBC, BMP ####[address] [address] [place] Platelet EstimateIncreasedNormalNormalThe [facility] Physician GroupComment on above:Performed By: #### DIFF CBC, BMP ####[address] [address] USAPlatelet mean volume (Bld) [Entitic vol]7.2 fL Normal6.3-10.7The [facility] Physician GroupComment on above:Performed By: #### DIFF CBC, BMP ####[place] [address] USAPlatelet MorphologyNormalNormalNormalThe [facility] Comment on above:Result Comment: PERFORMED BY:[address] [place], [place] [phone] MEDICAL DIRECTORCARLOS VÁZQUEZ M.D.Performed By: #### DIFF CBC, BMP ####[place] [address] USAPlatelets (Bld) [#/Vol]545 10*3/aPXhxq816-478Hhz [facility] Physician GroupComment on above: Performed By: #### DIFF CBC, BMP ####[place] [address] USARBC (Bld) [#/Vol]2.90 10*6/uLLow3.60-5.00The [facility] HospitalComment on above:Performed By: #### DIFF CBC, BMP ####[address] [place] [address] [place] Segmented neutrophils/100 WBC (Bld)73 %Zacx51-95Aqt [facility] Comment on above:Performed By: #### DIFF CBC, BMP ####[place] [address] USAWBC (Bld) [#/Vol]8.5 10*3/uLNormal 3.8-11.6The [facility] Physician GroupComment on above:Performed By: #### DIFF CBC, BMP ####[place] [address] USAWhite Blood Count8.5 [CFU]/mLNormal3.8-11.6The [facility] Comment on above:Performed By: #### DIFF CBC, BMP ####[place] [address] USABasic Metabolic Panelon 11-21-2024 Anion gap [Moles/Vol]12.3 mmol/LNormal6.0-15.0The [facility] Franklin [facility] Comment on above:Performed By: #### BMP ####[place] [id number] USACalcium [Mass/Vol]7.9 mg/dLLow8.6-10.3The [facility] Health Physician GroupComment on above:Performed By: #### BMP ####[place] [id number] USAChloride [Moles/Vol] 104 mmol/RAhywsv77-765Qrm [facility] HospitalComment on above:Performed By: #### BMP ####[place] [address] USACO2 [Moles/Vol]28.4 mmol/YRxvbuo28.0-31.0[facility] Comment on above:Performed By: #### BMP ####[place] [address] USACreatinine [Mass/Vol]0.83 mg/dLNormal0.60-1.20 The [facility] Physician GroupComment on above:Performed By: #### BMP ####[place] [address] [place] Creatinine Clr Calc Sciupkww46.69NormalThe [facility] HospitalComment on above:Result Comment: PERFORMED BY:[address] [place], [place] [phone] MEDICAL JACKELYN VÁZQUEZ M.D.Performed By: #### BMP ####[address] [address] USAGFR/1.73 sq M.predicted MDRD (S/P/Bld) [Vol rate/Area]mL/min/{1.73_m2}NormalThe Atrium Health Physician GroupComment on above: Performed By: #### BMP ####[address] [address] USAGlucose [Mass/Vol]83 mg/kNKbxjbm42-131Tsq [facility] Physician GroupComment on above:Result Comment: Random Glucose Reference Range is dependent on time and content of last meal. Glucose of more than 200 mg/dL in a nonstressed, ambulatory subject supports the diagnosis of Diabetes Mellitus. ADA recommended reference rangePerformed By: #### BMP ####[address] [address] USAPotassium [Moles/Vol]3.7 mmol/LNormal3.5-5.1The [facility] Physician GroupComment on above:Performed By: #### BMP ####[address] [address] USASodium [Moles/Vol]141 mmol/EGcsiwd030-461Azk [facility] Physician GroupComment on above:Performed By: #### BMP ####[address] [address] USAUrea nitrogen [Mass/Vol]16 mg/dLNormal7-25The [facility] Physician GroupComment on above:Performed By: #### BMP ####[address] [address] USABasic Metabolic Panel on 09-73-5247Xcjem gap [Moles/Vol]14.1 mmol/LNormal6.0-15.0The [facility] Physician GroupComment on above:Performed By: #### BMP, CBC ####[address] [address] USACalcium [Mass/Vol]8.0 mg/dLLow8.6-10.3The [facility] Physician GroupComment on above:Performed By: #### BMP, CBC ####[address] [address] USAChloride [Moles/Vol]103 mmol/PLgjihr46-502Tsp [facility] Comment on above:Performed By: #### BMP, CBC ####[address] [address] USACO2 [Moles/Vol]27.0 mmol/LNormal 21.0-31.0The [facility] Health Physician GroupComment on above:Performed By: #### BMP, CBC ####[address] [address] [place] Creatinine [Mass/Vol]0.97 mg/dLNormal0.60-1.20[facility] Comment on above:Performed By: #### BMP, CBC ####[place] [address] USACreatinine Clr Calc Gpylhldu56.12 NormalThe [facility] Health Physician GroupComment on above:Result Comment: PERFORMED BY:[place] [address] [address] [place], [place] [phone] MEDICAL JACKELYN VÁZQUEZ M.D.Performed By: #### BMP, CBC ####[place] [address] [place] GFR/1.73 sq M.predicted MDRD (S/P/Bld) [Vol rate/Area]mL/min/{1.73_m2}NormalThe [facility] Health Physician GroupComment on above:Performed By: #### BMP, CBC ####[place] [address] USAGlucose [Mass/Vol]76 mg/oYMqbrjx96-038Xij [facility] Physician GroupComment on above: Result Comment: Random Glucose Reference Range is dependent on time and content of last meal. Glucose of more than 200 mg/dL in a nonstressed, ambulatory subject supports the diagnosis of Diabetes Mellitus. ADA recommended reference rangePerformed By: #### BMP, CBC ####[place] [address] USAPotassium [Moles/Vol]3.1 mmol/LLow3.5-5.1The [facility] Physician GroupComment on above:Performed By: #### BMP, CBC ####[place] [address] USASodium [Moles/Vol]141 mmol/DSkmesd456-913Nur [facility] Physician GroupComment on above: Performed By: #### BMP, CBC ####[place] [address] USAUrea nitrogen [Mass/Vol]18 mg/dLNormal7-25The [facility] Physician GroupComment on above:Performed By: #### BMP, CBC ####[place] [address] [place] Complete Blood Count Auto Diffon 38-43-6101Dehkbhnlz (Bld) [#/Vol]0.1 10*3/uL Normal0.0-0.2The [facility] Physician GroupComment on above:Result Comment: PERFORMED BY:[address] [place], [place] [phone] MEDICAL DIRECTORCARLOS VÁZQUEZ M.D.Performed By: #### BMP, CBC ####[place] [address] USABasophils/100 WBC (Bld)1.3 %Normal.The [facility] Physician GroupComment on above:Performed By: #### BMP, CBC ####[place] [address] USAEosinophils (Bld) [#/Vol]0.3 10*3/uLNormal 0.0-0.45The [facility] Physician GroupComment on above:Performed By: #### BMP, CBC ####[place] [address] [place] Eosinophils/100 WBC (Bld)5.2 %Normal.The [facility] Physician GroupComment on above:Performed By: #### BMP, CBC ####[place] [address] USAErythrocyte distribution width (RBC) [Ratio]18.5 % High11.9-15.3The [facility] Physician GroupComment on above:Performed By: #### BMP, CBC ####[place] [address] USAHematocrit (Bld) [Volume fraction]24.4 %Low34.0-46.4The [facility] Physician GroupComment on above:Performed By: #### BMP, CBC ####[place] [address] USAHemoglobin (Bld) [Mass/Vol]8.3 g/dLLow 11.8-15.4The [facility] Physician GroupComment on above:Performed By: #### BMP, CBC ####[place] [address] [place] Lymphocytes (Bld) [#/Vol]1.3 10*3/uLNormal1.00-4.8[facility] Comment on above:Performed By: #### BMP, CBC ####[place] [address] USALymphocytes/100 WBC (Bld)19.4 %Normal. The [facility] Health Physician GroupComment on above:Performed By: #### BMP, CBC ####[address] (RBC) [Entitic mass]29.7 kiEhhbpe49.7-34.3The [facility] Physician GroupComment on above:Performed By: #### BMP, CBC ####[address] (RBC) [Entitic vol]87.3 dQLqwkhe21-044Yli [facility] Physician GroupComment on above:Performed By: #### BMP, CBC ####[place] [address] USAMean Corpuscular HGB Conc34.0 g/bTCqhlke37.0-35.0The [facility] Physician GroupComment on above:Performed By: #### BMP, CBC ####[place] [address] USAMonocytes (Bld) [#/Vol]0.6 10*3/uLNormal 0.0-0.8The [facility] Physician GroupComment on above:Performed By: #### BMP, CBC ####[place] [address] [place] Monocytes/100 WBC (Bld)9.4 %Normal.The [facility] Physician GroupComment on above:Performed By: #### BMP, CBC ####[place] [address] USANeutrophils (Bld) [#/Vol]4.2 10*3/uLNormal1.8-7.7The [facility] Physician GroupComment on above:Performed By: #### BMP, CBC ####[place] [address] [place] Neutrophils/100 WBC (Bld)64.7 %Normal.The [facility] Physician GroupComment on above:Performed By: #### BMP, CBC ####[address] [address] USANRBC%0.0 /100{WBC}Normal0-0.5The [facility] Physician GroupComment on above:Performed By: #### BMP, CBC ####[place] [address] USAPlatelet mean volume (Bld) [Entitic vol]7.5 fLNormal6.3-10.7The [facility] Physician GroupComment on above: Performed By: #### BMP, CBC ####[place] [address] USAPlatelets (Bld) [#/Vol]563 10*3/dMZlow372-885Atm [facility] Physician GroupComment on above:Performed By: #### BMP, CBC ####[place] [address] USARBC (Bld) [#/Vol]2.79 10*6/uLLow3.60-5.00The [facility] Physician GroupComment on above:Performed By: #### BMP, CBC ####[place] [address] USAWBC (Bld) [#/Vol]6.5 10*3/uLNormal3.8-11.6The [facility] Physician GroupComment on above:Performed By: #### BMP, CBC ####[place] [address] USAWhite Blood Count6.5 [CFU]/mLNormal3.8-11.6The [facility] Physician GroupComment on above:Performed By: #### BMP, CBC ####[place] [address] USABasic Metabolic Panelon 70-99-0570Qjhuo gap [Moles/Vol]16.4 mmol/LHigh6.0-15.0The [facility] Physician GroupComment on above: Performed By: #### BMP ####[address] [address] USACalcium [Mass/Vol]8.3 mg/dLLow8.6-10.3The [facility] Physician GroupComment on above:Performed By: #### BMP ####[address] [address] USAChloride [Moles/Vol]102 mmol/L Kvrptx95-140Gni [facility] Physician GroupComment on above:Performed By: #### BMP ####[address] [address] USACO2 [Moles/Vol]26.2 mmol/NLeyldc03.0-31.0The [facility] Physician GroupComment on above:Performed By: #### BMP ####[address] [address] USACreatinine [Mass/Vol]1.09 mg/dLNormal0.60-1.20The [facility] Physician GroupComment on above:Performed By: #### BMP ####[address] [address] USACreatinine Clr Calc Leolgcyf29.93NormalThValor Health Physician GroupComment on above:Result Comment: PERFORMED BY:[place] [address] [address] [place] [place], [place] [phone] MEDICAL JACKELYN VÁZQUEZ M.D.Performed By: #### BMP ####[address] [address] USAGFR/1.73 sq M.predicted MDRD (S/P/Bld) [Vol rate/Area]53.309 mL/min/{1.73_m2} NormalThe [facility] Health Physician GroupComment on above:Performed By: #### BMP ####[address] [address] USAGlucose [Mass/Vol]81 mg/jRMpbgle63-451Ldu [facility] Physician GroupComment on above: Result Comment: Random Glucose Reference Range is dependent on time and content of last meal. Glucose of more than 200 mg/dL in a nonstressed, ambulatory subject supports the diagnosis of Diabetes Mellitus. ADA recommended reference rangePerformed By: #### BMP ####[address] [address] USAPotassium [Moles/Vol]3.6 mmol/LNormal3.5-5.1The [facility] Physician GroupComment on above:Performed By: #### BMP ####[place] [address] USASodium [Moles/Vol]141 mmol/OKywxtr776-696Trb [facility] Physician GroupComment on above:Performed By: #### BMP ####[place] [address] USAUrea nitrogen [Mass/Vol]20 mg/dLNormal7-25The [facility] Comment on above:Performed By: #### BMP ####[place] [address] USAClostridium Difficileon 47-43-9197Eswnzphccym DifficileNegativeNormalNegativeThe [facility] Health Physician GroupComment on above: Order Comment: > or = to 3 loose/watery stools in the last 24 HRS? Y Is patient on promotility agents or tube feeding? NResult Comment: Testing performed by RT- PCRPERFORMED BY:[place] [address] [place], [place] [phone] MEDICAL JACKELYN VÁZQUEZ M.D.Performed By: #### CDT, LACTO SWBC ####[place] [address] USAComplete Blood Count Auto Diffon 19-29-0296Mrpwyhduv (Bld) [#/Vol]0.1 10*3/uLNormal0.0-0.2The [facility] Physician GroupComment on above:Result Comment: PERFORMED BY:[place] [address] [place], [place] [phone] MEDICAL JACKELYN VÁZQUEZ M.D.Performed By: #### CBC ####[address] [address] USABasophils/100 WBC (Bld)1.1 %Normal.The [facility] Physician GroupComment on above:Performed By: #### CBC ####[address] [address] USAEosinophils (Bld) [#/Vol]0.3 10*3/uLNormal0.0-0.45The [facility] Physician GroupComment on above:Performed By: #### CBC ####[address] [address] USAEosinophils/100 WBC (Bld)3.9 %Normal.The [facility] Physician GroupComment on above:Performed By: #### CBC ####[place] [address] USAErythrocyte distribution width (RBC) [Ratio]20.1 % High11.9-15.3The [facility] Physician GroupComment on above:Performed By: #### CBC ####[place] [address] [place] Hematocrit (Bld) [Volume fraction]22.3 %Low34.0-46.4The [facility] Physician GroupComment on above:Performed By: #### CBC ####[place] [address] USAHemoglobin (Bld) [Mass/Vol]7.4 g/dLLow 11.8-15.4The [facility] Physician GroupComment on above:Performed By: #### CBC ####[address] [address] [place] Lymphocytes (Bld) [#/Vol]0.8 10*3/uLLow1.00-4.8[facility] Comment on above:Performed By: #### CBC ####[place] [address] USALymphocytes/100 WBC (Bld)12.0 %Normal.The [facility] Physician GroupComment on above:Performed By: #### CBC ####[place] [address] [place] [address] [facility] (RBC) [Entitic mass]29.5 ivHtrdwp45.7-34.3The [facility] Physician GroupComment on above: Performed By: #### CBC ####[address] [address] USAV (RBC) [Entitic vol]88.5 rCTjausq81-822Gzy [facility] Physician GroupComment on above:Performed By: #### CBC ####[address] [address] USAMean Corpuscular HGB Conc33.3 g/yDQnefpl36.0-35.0The [facility] Physician GroupComment on above: Performed By: #### CBC ####[address] [address] USAMonocytes (Bld) [#/Vol]1.1 10*3/uLHigh0.0-0.8The [facility] Physician GroupComment on above:Performed By: #### CBC ####[address] [address] USAMonocytes/100 WBC (Bld)15.6 %Normal.The [facility] Physician GroupComment on above:Performed By: #### CBC ####[address] [address] USANeutrophils (Bld) [#/Vol]4.7 10*3/uLNormal1.8-7.7The [facility] Physician GroupComment on above:Performed By: #### CBC ####[address] [address] USANeutrophils/100 WBC (Bld)67.4 %Normal. The [facility] Physician GroupComment on above:Performed By: #### CBC ####[address] [address] USANRBC% 0.1 /100{WBC}Normal0-0.5The [facility] Physician GroupComment on above:Performed By: #### CBC ####[address] [place] [address] USAPlatelet mean volume (Bld) [Entitic vol]8.2 fLNormal6.3-10.7The [facility] Physician GroupComment on above:Performed By: #### CBC ####[address] [address] USAPlatelets (Bld) [#/Vol]446 10*3/sJCklgnq496-220Zrd [facility] Physician GroupComment on above: Performed By: #### CBC ####[place] [address] USARBC (Bld) [#/Vol]2.52 10*6/uLLow3.60-5.00The [facility] Physician GroupComment on above:Performed By: #### CBC ####[address] [address] USAWBC (Bld) [#/Vol]7.0 10*3/uLNormal3.8-11.6The [facility] Physician GroupComment on above:Performed By: #### CBC ####[address] [address] USAWhite Blood Count7.0 [CFU]/mLNormal3.8-11.6The [facility] Comment on above:Performed By: #### CBC ####[address] [address] USAGastrointestinal Profile, PCRon 11-19-2024 Adenovirus F 40/41Not detectedNormalNot DetectedThe [facility] Comment on above:Performed By: #### GI PROFILE, STL ####[facility] , AstrovirusNot detectedNormalNot DetectedThe [facility] HospitalComment on above:Performed By: #### GI PROFILE, STL ####[facility] ,C Difficile Toxin A/BNot detectedNormalNot DetectedThe [facility] HospitalComment on above:Performed By: #### GI PROFILE, STL ####[facility] ,Campylobacter Not detectedNormalNot DetectedThe [facility] Physician GroupComment on above: Performed By: #### GI PROFILE, STL ####[facility] ,CryptosporidiumNot detectedNormalNot DetectedThe [facility] Physician GroupComment on above: Performed By: #### GI PROFILE, STL ####[facility] ,Cyclospora cayetanensisNot detectedNormalNot DetectedThe [facility] Physician GroupComment on above:Performed By: #### GI PROFILE, STL ####[facility] ,E coli X499Pci applicableNormalNot DetectedThe [facility] Physician GroupComment on above:Performed By: #### GI PROFILE, STL ####[facility] ,Entamoeba histolyticaNot detectedNormalNot DetectedThe [facility] Physician GroupComment on above:Performed By: #### GI PROFILE, STL ####[facility] , Enteroaggregative E coliNot detectedNormalNot DetectedThe [facility] Physician GroupComment on above:Performed By: #### GI PROFILE, STL ####[facility] ,Enteropathogenic E coliNot detectedNormalNot DetectedThe [facility] Physician GroupComment on above:Performed By: #### GI PROFILE, STL ####[facility] ,Enterotoxigenic E coliNot detectedNormalNot DetectedThe [facility] Physician GroupComment on above:Performed By: #### GI PROFILE, STL ####[facility] ,Giardia lambliaNot detectedNormalNot DetectedThe [facility] Physician GroupComment on above:Performed By: #### GI PROFILE, STL ####[facility] ,Norovirus GI/GIINot detectedNormalNot DetectedThe [facility] Physician GroupComment on above:Performed By: #### GI PROFILE, STL ####[facility] ,Plesiomonas shigelloidesNot detectedNormalNot DetectedThe [facility] Physician GroupComment on above:Performed By: #### GI PROFILE, STL ####[facility] ,Rotavirus ANot detectedNormalNot DetectedThe [facility] Physician GroupComment on above:Performed By: #### GI PROFILE, STL ####[facility] ,SalmonellaNot detectedNormalNot DetectedThe [facility] Physician GroupComment on above:Performed By: #### GI PROFILE, STL ####[facility] ,SapovirusNot detectedNormalNot DetectedThe [facility] Physician GroupComment on above:Result Comment: Performed at: [facility] Lab[address] [id number] LabDirector: Joyce Castillo MD, Phone: [phone] BY:[facility] [place] [place], [place] [phone] MEDICAL DIRECTORCARLOS VÁZQUEZ M.D.Performed By: #### GI PROFILE, STL ####[facility] ,Sqrpr-scwjk-cugmdyxxw E coli Not detectedNormalNot DetectedThe [facility] Physician GroupComment on above: Performed By: #### GI PROFILE, STL ####[facility] , Shigella/Enteroinvasive E coliNot detectedNormalNot DetectedThe [facility] Physician GroupComment on above:Performed By: #### GI PROFILE, STL ####[facility] ,VibrioNot detectedNormalNot DetectedThe [facility] Comment on above:Performed By: #### GI PROFILE, STL ####[facility] , Vibrio choleraeNot detectedNormalNot DetectedThe [facility] Comment on above:Performed By: #### GI PROFILE, STL ####[facility] , Yersinia enterocoliticaNot detectedNormalNot DetectedThe [facility] Physician GroupComment on above:Performed By: #### GI PROFILE, STL ####[facility] ,Lactic Acidon 88-82-4454Xbsbhdd [Moles/Vol]1.0 mmol/LNormal0.5-1.9 The [facility] Physician GroupComment on above:Result Comment: Lactic Acid reference range has been updated to 0.5 ? 1.9 mmol/L and the critical range of 2.0 or greater.PERFORMED BY:[place] [address] [address] [place], [place] [phone] MEDICAL JACKELYN VÁZQUEZ M.D.Performed By: #### LACTIC ####[address] [address] USALactoferrin, Stool WBCon 41-38-7850Kpqdmkpmtbl, Stool WBCNormalThe [facility] HospitalComment on above:Performed By: #### CDT, LACTO SWBC ####[address] [address] USALeukoReduced RBCon 73-47-0798LnrhnUnysoxy RBCTRANSFUSED 11/19/24 1410 NormalThe [facility] Physician GroupPotassiumon 07-35-0536Twgrydefe [Moles/Vol] 3.1 mmol/LLow3.5-5.1The [facility] Physician GroupComment on above:Result Comment: PERFORMED BY:[place] [address] [address] [place] [place], [place] [phone] MEDICAL JACKELYN VÁZQUEZ M.D.Performed By: #### K ####[address] [address] USAStool Bacterial Panelon 50-27-1116BiunrxjoykljdYhniqgkxYjtzegVqycbvfjUpx [facility] Physician GroupComment on above:Result Comment: Campylobacter test includes C. jejuni and C. coli.Performed By: #### ENT PARASITIC P, ENT BACT PANEL ####[address] [address] [place] Salmonella SpeciesNegativeNormalNegativeThe [facility] Physician GroupComment on above:Result Comment: Testing performed by RT-PCRPERFORMED BY:[place] [address] [place], [place] [phone] MEDICAL JACKELYN VÁZQUEZ M.D.Performed By: #### ENT PARASITIC P, ENT BACT PANEL ####[address] [address] USAShiga Toxin (E coli O157+oth)NegativeNormalNegativeThe [facility] Comment on above:Performed By: #### ENT PARASITIC P, ENT BACT PANEL ####[address] [address] [facility] Shigella SpeciesNegativeNormalNegativeThe [facility] Health Physician GroupComment on above:Result Comment: Shigella sp. test includes Shigella species and Enteroinvasive E. coli (EIEC).Performed By: #### ENT PARASITIC P, ENT BACT PANEL ####[place] [address] USAStool Occult Blood (Guaiac)on 74-42-4521Gfkoc Occult Blood (Guaiac)NormalThe [facility] Physician GroupComment on above:Performed By: #### OB(GUAIAC) ####[place] [address]USAStool Parasitic Panel on 70-13-0409Kzknqklsfvaglpt (C.hominis+parNegativeNormalNegativeThe [facility] Health Physician GroupComment on above:Result Comment: Cryptosporidium test includes C. hominis and C. parvum.Performed By: #### ENT PARASITIC P, ENT BACT PANEL ####[place] [address] [facility] Entamoeba histolyticaNegativeNormalNegativeThe [facility] Health Physician GroupComment on above:Result Comment: Testing performed by RT-PCRPERFORMED BY:[address] [phone] MEDICAL JACKELYN VÁZQUEZ M.D.Performed By: #### ENT PARASITIC P, ENT BACT PANEL ####[place] [address] USAGiardia lambliaNegativeNormalNegativeThe [facility] Physician GroupComment on above:Performed By: #### ENT PARASITIC P, ENT BACT PANEL ####[place] [address] USAType and Screenon 11-19-2024 ABO and Rh group Nom (Bld)Blood group A Rh(D) positiveNormalThe [facility] Health Physician GroupComment on above:Order Comment: Transfuse now? Y Number of units to transfuse now? 1Result Comment: PERFORMED BY:[place] [address] [address] [place], [place] [phone] MEDICAL DIRECTORCARLOS VÁZQUEZ M.D.Basic Metabolic Panelon 55-16-6027Avjnd gap [Moles/Vol]15.6 mmol/LHigh6.0-15.0The [facility] Physician GroupComment on above: Performed By: #### DIFF CBC, BMP ####[address] [address] USACalcium [Mass/Vol]8.0 mg/dLLow8.6-10.3The [facility] Physician GroupComment on above:Performed By: #### DIFF CBC, BMP ####[address] [address] USAChloride [Moles/Vol] 100 mmol/YGvikof13-062Tvg [facility] Physician GroupComment on above:Performed By: #### DIFF CBC, BMP ####[address] [address] USACO2 [Moles/Vol]27.7 mmol/SKnuebt71.0-31.0The [facility] Physician GroupComment on above:Performed By: #### DIFF CBC, BMP ####[address] [address] [place] Creatinine [Mass/Vol]1.20 mg/dLNormal0.60-1.20The [facility] Comment on above:Performed By: #### DIFF CBC, BMP ####[address] [address] USACreatinine Clr Calc Elkcbrrc89.58 NormalThe [facility] Physician GroupComment on above:Result Comment: PERFORMED BY:[place] [address] [address] [place], [place] [phone] MEDICAL JACKELYN VÁZQUEZ M.D.Performed By: #### DIFF CBC, BMP ####[address] [address] USAGFR/1.73 sq M.predicted MDRD (S/P/Bld) [Vol rate/Area]47.500 mL/min/{1.73_m2} NormalThe [facility] Health Physician GroupComment on above:Performed By: #### DIFF CBC, BMP ####[address] [address] [place] Glucose [Mass/Vol]73 mg/gYUsyopt95-377Vyw [facility]ician GroupComment on above:Result Comment: Random Glucose Reference Range is dependent on time and content of last meal. Glucose of more than 200 mg/dL in a nonstressed, ambulatory subject supports the diagnosis of Diabetes Mellitus. ADA recommended reference rangePerformed By: #### DIFF CBC, BMP ####[address] [address] USAPotassium [Moles/Vol]2.3 mmol/LOff scale low3.5-5.1The [facility] Physician GroupComment on above:Result Comment: Critical Result Called to and read back by: KEY ALMAZAN at: 11/18/2024 05:52:36 by:[id number] By: #### DIFF CBC, BMP ####[place] [address] USASodium [Moles/Vol]141 mmol/LNormal 136-145The [facility] Physician GroupComment on above:Performed By: #### DIFF CBC, BMP ####[address] [address] USAUrea nitrogen [Mass/Vol]21 mg/dLNormal7-25The [facility] Comment on above:Performed By: #### DIFF CBC, BMP ####[address] [address] USADiff and CBCon 78-13-2279Xiketjthkqli Ql (Bld)ModerateNormalThe [facility] Physician GroupComment on above:Performed By: #### DIFF CBC, BMP ####[place] [address] USABand form neutrophils/100 WBC (Bld)5 %Normal0-5The [facility] Physician GroupComment on above:Performed By: #### DIFF CBC, BMP ####[place] [address] [place] Basophils/100 WBC (Bld)1 %Normal0-2The [facility] Physician GroupComment on above:Performed By: #### DIFF CBC, BMP ####[place] [address] USAEosinophils/100 WBC (Bld)2 %Normal1-3The [facility] Physician GroupComment on above:Performed By: #### DIFF CBC, BMP ####[place] [address] [place] Erythrocyte distribution width (RBC) [Ratio]19.2 %High11.9-15.3The [facility] Physician GroupComment on above:Performed By: #### DIFF CBC, BMP ####[place] [address] USAGiant Platelet Tally2 /100{WBC}NormalThe [facility] Health Physician GroupComment on above:Performed By: #### DIFF CBC, BMP ####[place] [address] USAHematocrit (Bld) [Volume fraction]22.7 %Low34.0-46.4The [facility] Physician GroupComment on above:Performed By: #### DIFF CBC, BMP ####[place] [address] USAHemoglobin (Bld) [Mass/Vol]7.6 g/dLLow11.8-15.4The [facility] Physician GroupComment on above: Performed By: #### DIFF CBC, BMP ####[place] [id number] USAHypochromasiaSlightNormalThe Atrium Health Physician GroupComment on above:Performed By: #### DIFF CBC, BMP ####[place] [id number] USALymphocytes/100 WBC (Bld)3 % Etx35-04Kpj [facility] Physician GroupComment on above:Performed By: #### DIFF CBC, BMP ####[address] [address] USAMacrocytosisSlightNormKindred Healthcaree [facility] Physician GroupComment on above: Performed By: #### DIFF CBC, BMP ####[address] [address] USAMCH (RBC) [Entitic mass]29.2 xxPqbrtq60.7-34.3The [facility] Physician GroupComment on above:Performed By: #### DIFF CBC, BMP ####[address] [address] USAMCV (RBC) [Entitic vol]87.6 rPCsozkk39-025Zkj [facility] Physician GroupComment on above:Performed By: #### DIFF CBC, BMP ####[address] [address] USAMean Corpuscular HGB Conc33.3 g/dLNormal 32.0-35.0The [facility] Physician GroupComment on above:Performed By: #### DIFF CBC, BMP ####[address] [address] USAMetamyelocytes1 %High0-0The [facility] Physician GroupComment on above: Performed By: #### DIFF CBC, BMP ####[address] [address] USAMonocytes/100 WBC (Bld)20 %High2-11The [facility] Physician GroupComment on above:Performed By: #### DIFF CBC, BMP ####[address] [address] USAPlatelet Estimate IncreasedNormalNormKindred Healthcaree [facility] Physician GroupComment on above:Performed By: #### DIFF CBC, BMP ####[address] [address] USAPlatelet mean volume (Bld) [Entitic vol]8.1 fLNormal6.3-10.7The [facility] Physician GroupComment on above:Performed By: #### DIFF CBC, BMP ####[address] [address] [facility] Platelet MorphologyNormalNormalNormCleveland Clinic Martin South Hospital Physician GroupComment on above:Result Comment: PERFORMED BY:[address] [place], [place] [phone] MEDICAL DIRECTORCARLOS VÁZQUEZ M.D.Performed By: #### DIFF CBC, BMP ####[address] [address] USAPlatelets (Bld) [#/Vol]540 10*3/mNBzku606-210 The [facility] Physician GroupComment on above:Performed By: #### DIFF CBC, BMP ####[address] [address] [facility] PolychromasiaSlightNormCleveland Clinic Martin South Hospital Physician GroupComment on above:Performed By: #### DIFF CBC, BMP ####[address] [address] USARBC (Bld) [#/Vol]2.59 10*6/uLLow3.60-5.00The [facility] Physician GroupComment on above:Performed By: #### DIFF CBC, BMP ####[address] [address] USARBC morphology finding Nom (Bld)NormalNormalNoNovant Health Rehabilitation Hospital Physician Group Comment on above:Performed By: #### DIFF CBC, BMP ####[address] [address] USAReactive Lymphocytes3 %Normal0-12The [facility] Physician GroupComment on above:Performed By: #### DIFF CBC, BMP ####[address] [address] [place] Segmented neutrophils/100 WBC (Bld)66 %Ptsevu67-97Fvf [facility] Comment on above:Performed By: #### DIFF CBC, BMP ####[address] [address] USAWBC (Bld) [#/Vol]8.9 10*3/uLNormal 3.8-11.6The [facility] Physician GroupComment on above:Performed By: #### DIFF CBC, BMP ####[address] [address] USAWhite Blood Count8.9 [CFU]/mLNormal3.8-11.6The [facility] Comment on above:Performed By: #### DIFF CBC, BMP ####[address] [address] USAECG 12 lead ECGon 47-45-9438CBH 12 lead ECGNormalThe [facility] Physician [facility] HospitalPotassiumon 81-97-2624Emmjbzout [Moles/Vol]2.9 mmol/LOff scale low3.5-5.1The [facility]ician [facility] HospitalComment on above:Result Comment: Critical Result Called to and read back by: NANCI MCDONALD at: 11/18/2024 13:54:38 by:MLGPERFORMED BY:[address] [place], [place] [phone] MEDICAL DIRECTORCARLOS VÁZQUEZ M.D.Performed By: #### K ####[address] [address] USAComprehensive Metabolic Panelon 84-82-6893Qbbafbd [Mass/Vol]3.0 g/dLLow3.5-5.7The [facility] Physician [facility] HospitalComment on above: Performed By: #### CMP, PAB, MG, DIFF CBC ####[place] [id number] USAAlbumin/Globulin [Mass ratio]1.4 {ratio} NormalThe [facility] Physician [facility] HospitalComment on above:Performed By: #### CMP, PAB, MG, DIFF CBC ####[address] [address] USAALP [Catalytic activity/Vol]102 U/SHdnycc55-707Ufh [facility]ician [facility] HospitalComment on above:Performed By: #### CMP, PAB, MG, DIFF CBC ####[address] [address] USAALT [Catalytic activity/Vol]57 U/LHigh7-52The [facility] Physician GroupComment on above: Performed By: #### CMP, PAB, MG, DIFF CBC ####[place] [id number] USAAnion gap [Moles/Vol]16.3 mmol/LHigh6.0-15.0 The [facility] Physician GroupComment on above:Performed By: #### CMP, PAB, MG, DIFF CBC ####[place] [address] USAAST [Catalytic activity/Vol]20 U/TKqtnuq97-49Otn [facility] Comment on above:Performed By: #### CMP, PAB, MG, DIFF CBC ####[place] [id number] USABilirubin [Mass/Vol] 1.4 mg/dLHigh0.3-1.0The [facility] Physician GroupComment on above:Result Comment: Samples from patients who have taken Naproxen have shown spurious elevation in Total Bilirubin levels. A metabolite of Naproxen, O- desmethylnaproxen, has been shown to interfere with the Aminah-Mark method for measuring Total Bilirubin.Performed By: #### CMP, PAB, MG, DIFF CBC ####[place] [id number] USACalcium [Mass/Vol]8.4 mg/dLLow8.6-10.3The [facility] Physician GroupComment on above: Performed By: #### CMP, PAB, MG, DIFF CBC ####[place] [address] USAChloride [Moles/Vol]105 mmol/SDyqell66-890Ort [facility] Physician GroupComment on above:Performed By: #### CMP, PAB, MG, DIFF CBC ####[place] [address] [place] CO2 [Moles/Vol]23.9 mmol/WTchqqa81.0-31.0The [facility] Physician GroupComment on above:Performed By: #### CMP, PAB, MG, DIFF CBC ####[place] [address] USACreatinine [Mass/Vol]1.52 mg/dLHigh 0.60-1.20The [facility] Physician GroupComment on above:Performed By: #### CMP, PAB, MG, DIFF CBC ####[place] [address] [place] [address] USACreatinine Clr Calc Nodjiioj78.97NormCleveland Clinic [facility] Hospital Physician Group Comment on above:Performed By: #### CMP, PAB, MG, DIFF CBC ####[place] [address] USAGFR/1.73 sq M.predicted MDRD (S/P/Bld) [Vol rate/Area]35.768 mL/min/{1.73_m2}NormalThe [facility] Health Physician GroupComment on above:Performed By: #### CMP, PAB, MG, DIFF CBC ####[place] [address] [place] Globulin (S) [Mass/Vol]2.1 g/dLNoNovant Health Rehabilitation Hospital Physician GroupComment on above:Performed By: #### CMP, PAB, MG, DIFF CBC ####[place] [address] USAGlucose [Mass/Vol]75 mg/iRRhmnxu43-225 The [facility] Physician GroupComment on above:Result Comment: Random Glucose Reference Range is dependent on time and content of last meal. Glucose of more than 200 mg/dL in a nonstressed, ambulatory subject supports the diagnosis of Diabetes Mellitus. ADA recommended reference rangePerformed By: #### CMP, PAB, MG, DIFF CBC ####[place] [address] USAPotassium [Moles/Vol]3.2 mmol/LLow3.5-5.1The [facility] Comment on above:Performed By: #### CMP, PAB, MG, DIFF CBC ####[place] [address] USAProtein [Mass/Vol]5.1 g/dLLow6.4-8.9The [facility] Physician GroupComment on above:Performed By: #### CMP, PAB, MG, DIFF CBC ####[address] [address] USASodium [Moles/Vol]142 mmol/OCmstmq196-930Wrv [facility] Physician GroupComment on above:Performed By: #### CMP, PAB, MG, DIFF CBC ####[address] Urea nitrogen [Mass/Vol]29 mg/dLHigh7-25The [facility] Physician GroupComment on above:Performed By: #### CMP, PAB, MG, DIFF CBC ####[address] [address] USADiff and CBCon 59-89-3920Fnbpyzvskrgk Ql (Bld)ModerateNormalThe [facility] Physician GroupComment on above:Performed By: #### CMP, PAB, MG, DIFF CBC ####[place] [address] USABand form neutrophils/100 WBC (Bld)13 %High0-5The [facility] Physician GroupComment on above:Performed By: #### CMP, PAB, MG, DIFF CBC ####[address] Basophils/100 WBC (Bld)2 %Normal0-2The [facility] Physician GroupComment on above:Performed By: #### CMP, PAB, MG, DIFF CBC ####[address] [address] USAEosinophils/100 WBC (Bld)6 %High1-3The [facility] Physician GroupComment on above:Performed By: #### CMP, PAB, MG, DIFF CBC ####[place] [id number] [facility] Erythrocyte distribution width (RBC) [Ratio]15.7 %High11.9-15.3The [facility] Physician GroupComment on above:Performed By: #### CMP, PAB, MG, DIFF CBC ####[place] [id number] [facility] Hematocrit (Bld) [Volume fraction]25.0 %Low34.0-46.4The [facility] Physician GroupComment on above:Performed By: #### CMP, PAB, MG, DIFF CBC ####[place] [address] USAHemoglobin (Bld) [Mass/Vol]8.2 g/dLLow11.8-15.4The [facility] Physician GroupComment on above: Performed By: #### CMP, PAB, MG, DIFF CBC ####[place] [address] USAHypochromasiaModerateNemours Children's Clinic Hospital Physician GroupComment on above:Performed By: #### CMP, PAB, MG, DIFF CBC ####[place] [address] USALarge PlateletsSGood Hope Hospital Physician GroupComment on above:Result Comment: PERFORMED BY:[address] [place], [place] [phone] MEDICAL DIRECTORCARLOS VÁZQUEZ M.D.Performed By: #### CMP, PAB, MG, DIFF CBC ####[place] [id number] USALymphocytes/100 WBC (Bld)5 %Ije58-88Qvs [facility] Physician GroupComment on above:Performed By: #### CMP, PAB, MG, DIFF CBC ####[place] [address] [place] MacrocytosisSGood Hope Hospital Physician GroupComment on above:Performed By: #### CMP, PAB, MG, DIFF CBC ####[place] [address] USAMCH (RBC) [Entitic mass]28.8 quGdntdq77.7-34.3The [facility] Physician GroupComment on above:Performed By: #### CMP, PAB, MG, DIFF CBC ####[place] [address] USAMCV (RBC) [Entitic vol]87.9 fETgktvq55-284Qaq [facility] Physician GroupComment on above:Performed By: #### CMP, PAB, MG, DIFF CBC ####[address] [address] USAMean Corpuscular HGB Conc32.8 g/dL Rlejvi19.0-35.0The [facility] Physician GroupComment on above:Performed By: #### CMP, PAB, MG, DIFF CBC ####[address] [address] USAMetamyelocytes2 %High0-0The [facility] Physician GroupComment on above:Performed By: #### CMP, PAB, MG, DIFF CBC ####[place] [id number] USAMonocytes/100 WBC (Bld)12 %High2-11The [facility] Physician GroupComment on above:Performed By: #### CMP, PAB, MG, DIFF CBC ####[place] [address] USAPlatelet EstimateNormalNormalNormCleveland Clinic [facility] Hospital Physician GroupComment on above:Performed By: #### CMP, PAB, MG, DIFF CBC ####[address] [address] [place] Platelet mean volume (Bld) [Entitic vol]9.1 fLNormal6.3-10.7The [facility] Physician GroupComment on above:Performed By: #### CMP, PAB, MG, DIFF CBC ####[address] [address] [place] Platelets (Bld) [#/Vol]368 10*3/aNGnpyzg920-718Ukp [facility] Comment on above:Performed By: #### CMP, PAB, MG, DIFF CBC ####[place] [id number] USAPoikilocytosisSlight NormalThe [facility] Physician GroupComment on above:Performed By: #### CMP, PAB, MG, DIFF CBC ####[address] [address] USAPolychromasiaSlightNormCleveland Clinic [facility] South Hospital Physician GroupComment on above: Performed By: #### CMP, PAB, MG, DIFF CBC ####[place] [address] USARBC (Bld) [#/Vol]2.84 10*6/uLLow3.60-5.00The [facility] Physician GroupComment on above:Performed By: #### CMP, PAB, MG, DIFF CBC ####[place] [address] [place] SchistocytesWatauga Medical Center Physician GroupComment on above:Performed By: #### CMP, PAB, MG, DIFF CBC ####[place] [address] USASegmented neutrophils/100 WBC (Bld)60 %Dommgx29-60 The [facility] Physician GroupComment on above:Performed By: #### CMP, PAB, MG, DIFF CBC ####[place] [address] USAStomatocytesSGood Hope Hospital Physician GroupComment on above: Performed By: #### CMP, PAB, MG, DIFF CBC ####[place] [address] USATear Drop CellsWatauga Medical Center Physician GroupComment on above:Performed By: #### CMP, PAB, MG, DIFF CBC ####[place] [address] USAWBC (Bld) [#/Vol]14.4 10*3/uLHigh3.8-11.6The [facility] Physician GroupComment on above:Performed By: #### CMP, PAB, MG, DIFF CBC ####[place] [address] USAWhite Blood Count12.6 [CFU]/mLHigh 3.8-11.6The [facility] Physician GroupComment on above:Performed By: #### CMP, PAB, MG, DIFF CBC ####[place] [address] USAMagnesiumon 17-95-6281Yvzitnxcw [Mass/Vol]2.1 mg/dLNormal1.9-2.7The [facility] Physician GroupComment on above:Performed By: #### CMP, PAB, MG, DIFF CBC ####[address] [address] [place] Potassiumon 61-60-6090Ojuscovii [Moles/Vol]3.5 mmol/LNormal3.5-5.1The [facility] Physician GroupComment on above:Result Comment: PERFORMED BY:[address] [place]ZSTAR [place], [place] [phone] MEDICAL JACKELYN VÁZQUEZ M.D.Performed By: #### K ####[place] [id number] USAPrealbuminon 88-34-1788Arpojbagyp [Mass/Vol]12.2 mg/dLLow17.0-34.0The [facility] Physician GroupComment on above: Result Comment: PERFORMED BY:[address] [place]ZSTAR [place], [place] [phone] MEDICAL JACKELYN VÁZQUEZ M.D.Performed By: #### CMP, PAB, MG, DIFF CBC ####[address] [address] USAMagnesiumon 12-85-2746Clzlfthoz [Mass/Vol]1.5 mg/dLLow1.9-2.7The [facility] Physician GroupComment on above: Result Comment: PERFORMED BY:[address] [place], [place] [phone] MEDICAL JACKELYN VÁZQUEZ M.D.Performed By: #### RENAL, MG ####[address] [address] USARenal Function Panelon 04-24-8037Xuxflqu [Mass/Vol] 3.0 g/dLLow3.5-5.7The [facility] Physician GroupComment on above:Performed By: #### RENAL, MG ####[address] [address] USAAnion gap [Moles/Vol]15.2 mmol/LHigh6.0-15.0Och Regional Medical CenterComment on above:Performed By: #### RENAL, MG ####[place] [address] USACalcium [Mass/Vol]8.7 mg/dL Normal8.6-10.3The [facility] HospitalComment on above:Performed By: #### RENAL, MG ####[place] [address] USAChloride [Moles/Vol]106 mmol/IScwiyp63-762Oef [facility] Comment on above:Performed By: #### RENAL, MG ####[place] [address] USACO2 [Moles/Vol]26.2 mmol/LNormal 21.0-31.0The [facility] HospitalComment on above:Performed By: #### RENAL, MG ####[place] [address] [place] Creatinine [Mass/Vol]1.67 mg/dLHigh0.60-1.20The [facility] HospitalComment on above:Performed By: #### RENAL, MG ####[place] [address] USACreatinine Clr Calc Thwuvuut22.92NormalThClaiborne County Medical CenterComment on above:Performed By: #### RENAL, MG ####[place] [id number] [place] GFR/1.73 sq M.predicted MDRD (S/P/Bld) [Vol rate/Area]31.949 mL/min/{1.73_m2} NormalThe [facility] HospitalComment on above:Performed By: #### RENAL, MG ####[place] [address] USAGlucose [Mass/Vol]59 mg/bJHxe90-404Ipr [facility] HospitalComment on above:Result Comment: Random Glucose Reference Range is dependent on time and content of last meal. Glucose of more than 200 mg/dL in a nonstressed, ambulatory subject supports the diagnosis of Diabetes Mellitus. ADA recommended reference range Performed By: #### RENAL, MG ####[address] [address] USAPhosphate [Mass/Vol]2.8 mg/dLNormal2.5-4.5The [facility] Physician GroupComment on above:Performed By: #### RENAL, MG ####[address] [address] [place] Potassium [Moles/Vol]3.4 mmol/LLow3.5-5.1The [facility] Physician GroupComment on above:Performed By: #### RENAL, MG ####[address] [address] USASodium [Moles/Vol]144 mmol/FCoitya746-971Eyw [facility] Physician GroupComment on above:Performed By: #### RENAL, MG ####[address] [address] USAUrea nitrogen [Mass/Vol]34 mg/dLHigh7-25The [facility] Physician GroupComment on above:Performed By: #### RENAL, MG ####[address] [address] USABasic Metabolic Panelon 84-61-1306Pnlln gap [Moles/Vol]Not performedNormal6.0-15.0The [facility] Physician GroupComment on above:Performed By: #### BMP ####[address] [address] USACalcium [Mass/Vol]8.6 mg/dLNormal8.6-10.3The [facility] Physician GroupComment on above:Performed By: #### BMP ####[address] [address] USAChloride [Moles/Vol] 106 mmol/XKryaep63-931Evb [facility] Physician GroupComment on above:Performed By: #### BMP ####[address] [address] USACO2 [Moles/Vol]21.3 mmol/TNlueyc72.0-31.0The [facility] Comment on above:Performed By: #### BMP ####[address] [address] USACreatinine [Mass/Vol]2.16 mg/dLHigh0.60-1.20 The [facility] Physician GroupComment on above:Performed By: #### BMP ####[address] [address] [place] Creatinine Clr Calc Tirgbztu70.59NormalThe [facility] Physician GroupComment on above:Result Comment: PERFORMED BY:[place] [address] [place], [place] [phone] MEDICAL DIRECTORCARLOS VÁZQUEZ M.D.Performed By: #### BMP ####[address] [address] USAGFR/1.73 sq M.predicted MDRD (S/P/Bld) [Vol rate/Area]23.462 mL/min/{1.73_m2}NormalThe [facility] Physician GroupComment on above:Performed By: #### BMP ####[address] [address] USAGlucose [Mass/Vol]79 mg/fEDdletf65-756Wdz [facility] Physician GroupComment on above:Result Comment: Random Glucose Reference Range is dependent on time and content of last meal. Glucose of more than 200 mg/dL in a nonstressed, ambulatory subject supports the diagnosis of Diabetes Mellitus. ADA recommended reference rangePerformed By: #### BMP ####[address] [address] USAPotassiumNormal3.5-5.1The [facility] Physician [facility] HospitalComment on above:Result Comment: Specimen hemolyzed, redraw requested Results called at 0552 on 11/13/24Performed By: #### BMP ####[address] [address] USASodium [Moles/Vol]140 mmol/SZhiqut302-228Onh [facility] Physician GroupComment on above: Performed By: #### BMP ####[address] [place] [address] USAUrea nitrogen [Mass/Vol]40 mg/dLHigh7-25The [facility] Physician GroupComment on above:Performed By: #### BMP ####[address] [address] USAECH echo limitedon 63-24-5372CPK echo limitedNormalThe [facility] Physician GroupMagnesiumon 47-31-3582Qahlxsbgk [Mass/Vol]1.7 mg/dLLow1.9-2.7The [facility] Comment on above:Result Comment: PERFORMED BY:[place] [address] [place], [place] [phone] MEDICAL JACKELYN VÁZQUEZ M.D.Performed By: #### MG ####[address] [address] USARedraw Potassiumon 11-13-2024 Potassium [Moles/Vol]3.4 mmol/LLow3.5-5.1The [facility] Physician GroupComment on above:Result Comment: PERFORMED BY:[place] [address] [place], [place] [phone] MEDICAL JACKELYN VÁZQUEZ M.D.Performed By: #### REDRAW K ####[address] [address] USABasic Metabolic Panelon 30-38-7374Jcusu gap [Moles/Vol]15.0 mmol/LNormal6.0-15.0The [facility] Physician GroupComment on above:Performed By: #### BMP, HEPATIC ####[address] [address] USACalcium [Mass/Vol]8.9 mg/dLNormal8.6-10.3The [facility] Physician GroupComment on above:Performed By: #### BMP, HEPATIC ####[address] [address] [place] Chloride [Moles/Vol]104 mmol/MDmyuyd24-959Evl [facility] Physician GroupComment on above:Performed By: #### BMP, HEPATIC ####[address] [address] USACO2 [Moles/Vol]24.4 mmol/RFpdcsq22.0-31.0The [facility] Physician GroupComment on above:Performed By: #### BMP, HEPATIC ####[address] [address] [place] Creatinine [Mass/Vol]2.48 mg/dLHigh0.60-1.20The [facility] Physician GroupComment on above:Performed By: #### BMP, HEPATIC ####[address] [address] USACreatinine Clr Calc Hwvjlrgy30.55NormalThe [facility] Physician [facility] HospitalComment on above:Result Comment: PERFORMED BY:[address] [place], [place] [phone] MEDICAL JACKELYN VÁZQUEZ M.D.Performed By: #### JOSE, HEPATIC ####[address] [address] [place] GFR/1.73 sq M.predicted MDRD (S/P/Bld) [Vol rate/Area]19.878 mL/min/{1.73_m2} NormalThe [facility] Physician [facility] HospitalComment on above:Performed By: #### JOSE, HEPATIC ####[address] [address] USAGlucose [Mass/Vol]91 mg/yXOtford36-347Dzo [facility] HospitalComment on above:Result Comment: Random Glucose Reference Range is dependent on time and content of last meal. Glucose of more than 200 mg/dL in a nonstressed, ambulatory subject supports the diagnosis of Diabetes Mellitus. ADA recommended reference rangePerformed By: #### BMP, HEPATIC ####[address] [address] USAPotassium [Moles/Vol]3.4 mmol/LLow 3.5-5.1The [facility] HospitalComment on above:Performed By: #### BMP, HEPATIC ####[address] [address] USASodium [Moles/Vol]140 mmol/TNtxepg704-130Hat [facility] Physician GroupComment on above:Performed By: #### BMP, HEPATIC ####[address] [address] USAUrea nitrogen [Mass/Vol]47 mg/dLHigh7-25The [facility] Physician GroupComment on above:Performed By: #### BMP, HEPATIC ####[place] [id number] USADiff and CBCon 46-52-2073Upaaopfgblcl Ql (Bld)ModerateNormCleveland Clinic [facility] Hospital Physician GroupComment on above:Performed By: #### DIFF CBC ####[place] [address] USABand form neutrophils/100 WBC (Bld)9 %High0-5The [facility] Physician GroupComment on above:Performed By: #### DIFF CBC ####[address] Erythrocyte distribution width (RBC) [Ratio]16.0 %High11.9-15.3The [facility] Physician GroupComment on above:Performed By: #### DIFF CBC ####[place] [address] USAGiant Platelet Tally2 /100{WBC}NormalAdventhealth Central Pasco Er Physician GroupComment on above:Performed By: #### DIFF CBC ####[place] [address] USAHematocrit (Bld) [Volume fraction]26.0 %Low34.0-46.4The [facility] Physician GroupComment on above:Performed By: #### DIFF CBC ####[place] [address] USAHemoglobin (Bld) [Mass/Vol]8.7 g/dLLow 11.8-15.4The [facility] Physician GroupComment on above:Performed By: #### DIFF CBC ####[place] [address] [place] HypochromasiaModerateNormCleveland Clinic [facility] Hospital Physician GroupComment on above: Performed By: #### DIFF CBC ####[address] [address] USALymphocytes/100 WBC (Bld)5 %Mup21-68Ftx [facility] Physician GroupComment on above:Performed By: #### DIFF CBC ####[address] [address] USAMCH (RBC) [Entitic mass]28.0 rnGurlag62.7-34.3The [facility] Physician GroupComment on above: Performed By: #### DIFF CBC ####[address] [address] USAMCV (RBC) [Entitic vol]84.1 uIPcdhhv15-745Sad [facility] Physician GroupComment on above:Performed By: #### DIFF CBC ####[address] [address] USAMean Corpuscular HGB Conc33.4 g/gKMdvfif98.0-35.0The [facility] Physician GroupComment on above:Performed By: #### DIFF CBC ####[address] [address] USAMonocytes/100 WBC (Bld)8 %Normal2-11The [facility] Physician GroupComment on above:Performed By: #### DIFF CBC ####[address] [address] [place] Myelocytes2 %High0-0The [facility] Physician GroupComment on above:Performed By: #### DIFF CBC ####[address] [address] USANucleated Red Blood Cell4 /100{WBC}High0-0The [facility] Comment on above:Performed By: #### DIFF CBC ####[address] [address] USAPlatelet EstimateNormalNormalNormalThe [facility] Physician GroupComment on above:Performed By: #### DIFF CBC ####[address] [address] [place] Platelet mean volume (Bld) [Entitic vol]8.3 fLNormal6.3-10.7The [facility] Physician GroupComment on above:Performed By: #### DIFF CBC ####[address] [address] USAPlatelet Morphology NormalNormalNoNovant Health Rehabilitation Hospital Physician GroupComment on above:Result Comment: PERFORMED BY:[address] [place], [place] [phone] MEDICAL JACKELYN VÁZQUEZ M.D.Performed By: #### DIFF CBC ####[address] [address] USAPlatelets (Bld) [#/Vol]244 10*3/lTZmbwoc460-080Pns [facility] Physician GroupComment on above:Performed By: #### DIFF CBC ####[address] [address] USAPoikilocytosisModAdventHealth for Women Physician GroupComment on above:Performed By: #### DIFF CBC ####[address] [address] [place] PolychromasiaSlightNoNovant Health Rehabilitation Hospital Physician GroupComment on above:Performed By: #### DIFF CBC ####[address] [address] USAPromyelocytes1 %High0-0The [facility] Physician GroupComment on above:Performed By: #### DIFF CBC ####[address] [address] [address] USARBC (Bld) [#/Vol]3.09 10*6/uLLow3.60-5.00The [facility] Health Physician GroupComment on above:Performed By: #### DIFF CBC ####[address] [address] [place] Segmented neutrophils/100 WBC (Bld)76 %Ykuw56-43Tjz [facility] Comment on above:Performed By: #### DIFF CBC ####[address] [address] USAStomatocytesModDavis Regional Medical Centerlands Physician GroupComment on above:Performed By: #### DIFF CBC ####[address] [address] USATarget CellsSlightNoNovant Health Rehabilitation Hospital Physician GroupComment on above:Performed By: #### DIFF CBC ####[address] [address] USAWBC (Bld) [#/Vol]17.6 10*3/uLHigh3.8-11.6The [facility] Comment on above:Performed By: #### DIFF CBC ####[address] [address] USAWhite Blood Count17.6 [CFU]/mLHigh 3.8-11.6The [facility] Physician GroupComment on above:Performed By: #### DIFF CBC ####[address] [address] [facility] Hepatic Panelon 58-19-4302Dghagkh [Mass/Vol]3.1 g/dLLow3.5-5.7The [facility] Health Physician GroupComment on above:Performed By: #### BMP, HEPATIC ####[address] [address] USAAlbumin/Globulin [Mass ratio]1.6 {ratio}NormalThe [facility] Health Physician GroupComment on above: Performed By: #### BMP, HEPATIC ####[address] [address] USAALP [Catalytic activity/Vol]106 U/DOagr01-447Eji [facility] Physician GroupComment on above:Performed By: #### BMP, HEPATIC ####[address] [address] USAALT [Catalytic activity/Vol]114 U/LHigh7-52The [facility] Physician GroupComment on above:Performed By: #### BMP, HEPATIC ####[address] [address] USAAST [Catalytic activity/Vol]25 U/UTjqywo14-57 The [facility] Physician GroupComment on above:Performed By: #### BMP, HEPATIC ####[address] [address] [place] Bilirubin [Mass/Vol]1.2 mg/dLHigh0.3-1.0The [facility] Physician GroupComment on above:Performed By: #### BMP, HEPATIC ####[address] [address] USABilirubin,Indirect0.6 mg/dLNormalThe [facility] Physician GroupComment on above:Performed By: #### BMP, HEPATIC ####[address] [address] USABilirubin.indirect [Mass/Vol]0.60 mg/dLHigh0.03-0.18The [facility] Physician GroupComment on above: Performed By: #### BMP, HEPATIC ####[address] [address] USAGlobulin (S) [Mass/Vol]2.0 g/dLNormKindred Healthcaree [facility] Physician GroupComment on above:Performed By: #### BMP, HEPATIC ####[address] [address] USAProtein [Mass/Vol]5.1 g/dLLow6.4-8.9The [facility] Physician GroupComment on above:Performed By: #### BMP, HEPATIC ####[address] [address] USABasic Metabolic Panelon 51-22-1913Vlyzh gap [Moles/Vol]13.2 mmol/L Normal6.0-15.0The [facility] Physician GroupComment on above:Performed By: #### BMP, LDH ####[address] [address] USACalcium [Mass/Vol]8.7 mg/dLNormal8.6-10.3The [facility] Physician GroupComment on above:Performed By: #### BMP, LDH ####[address] [address] USAChloride [Moles/Vol]100 mmol/QFcrxhn41-017Jpi [facility] Physician GroupComment on above:Performed By: #### BMP, LDH ####[address] [place] [address] USACO2 [Moles/Vol]25.4 mmol/LEmtyyo63.0-31.0The [facility] Physician GroupComment on above:Performed By: #### BMP, LDH ####[address] [address] USACreatinine [Mass/Vol]2.59 mg/dLSignificant change down0.60-1.20The [facility] Physician GroupComment on above:Performed By: #### BMP, LDH ####[address] [address] USACreatinine Clr Calc Gddkvzco51.82NormalThValor Health Physician [facility] Memorial HospitalComment on above:Result Comment: PERFORMED BY:[address] [place], [place] [phone] MEDICAL DIRECTORCARLOS VÁZQUEZ M.D.Performed By: #### BMP, LDH ####[address] [address] USAGFR/1.73 sq M.predicted MDRD (S/P/Bld) [Vol rate/Area]18.870 mL/min/{1.73_m2}NormalThe [facility] Physician [facility] HospitalComment on above:Performed By: #### BMP, LDH ####[address] [address] USAGlucose [Mass/Vol]88 mg/cYSwvjcm77-773Knx [facility]ician [facility] HospitalComment on above:Result Comment: Random Glucose Reference Range is dependent on time and content of last meal. Glucose of more than 200 mg/dL in a nonstressed, ambulatory subject supports the diagnosis of Diabetes Mellitus. ADA recommended reference rangePerformed By: #### BMP, LDH ####[address] [address] USAPotassium [Moles/Vol] 3.6 mmol/LNormal3.5-5.1The [facility] Physician GroupComment on above:Performed By: #### BMP, LDH ####[address] [id number] USASodium [Moles/Vol]135 mmol/FEgu244-451Pdl [facility] Comment on above:Performed By: #### BMP, LDH ####[address] [address] USAUrea nitrogen [Mass/Vol]44 mg/dLHigh 7-25The [facility] Physician GroupComment on above:Performed By: #### BMP, LDH ####[address] [id number] USABlood Cultureon 69-25-6995Xjbkpnnb identified Cx Nom (Bld)NO GROWTH 5 DAYS PERFORMED BY: [facility] [address] [place] [address] PATHOLOGIST MINE BOSS CARLOS VÁZQUEZ M.D.NormalAdventhealth Central Pasco Er Physician GroupComment on above: Performed By: #### CUBLD ####[place] [address] USAClostridium Difficileon 41-43-1881Awhwfwtcrom DifficileNegativeNormalNegativeAdventhealth Central Pasco Er Physician [facility] HospitalComment on above: Order Comment: > or = to 3 loose/watery stools in the last 24 HRS? Y Is patient on promotility agents or tube feeding? NResult Comment: Testing performed by RT- PCRPERFORMED BY:[address] [place], [place] [phone] MEDICAL DIRECTORCARLOS VÁZQUEZ M.D.Performed By: #### OB(GUAIAC), CDT ####[address] [id number] USADiff and CBCon 00-35-1183KoshhltbsxbqQegsjeLnjdxaIvf [place] Physician [facility] HospitalComment on above:Performed By: #### DIFF CBC ####[address] [address] [place] Anisocytosis Ql (Bld)ModerateNoNovant Health Rehabilitation Hospital Physician GroupComment on above:Performed By: #### DIFF CBC ####[place] [address] USABand form neutrophils/100 WBC (Bld)5 %Normal0-5The [facility] Physician GroupComment on above:Performed By: #### DIFF CBC ####[address] [address] [place] Basophils/100 WBC (Bld)2 %Normal0-2The [facility] Physician GroupComment on above:Performed By: #### DIFF CBC ####[address] [address] USAEosinophils/100 WBC (Bld)2 %Normal1-3The [facility] Physician GroupComment on above:Performed By: #### DIFF CBC ####[address] [address] USAErythrocyte distribution width (RBC) [Ratio]15.8 %High11.9-15.3The [facility] Comment on above:Performed By: #### DIFF CBC ####[address] [address] USAGiant Platelet Tally1 /100{WBC}Normal The [facility] Health Physician GroupComment on above:Performed By: #### DIFF CBC ####[address] [address] [facility] Hematocrit (Bld) [Volume fraction]19.6 %Off scale low34.0-46.4The [facility] Health Physician GroupComment on above:Result Comment: Critical value result called at 0848 on 11/11/24Performed By: #### DIFF CBC ####[address] [address] USAHemoglobin (Bld) [Mass/Vol]6.5 g/dLLow 11.8-15.4The [facility] Physician GroupComment on above:Performed By: #### DIFF CBC ####[address] [address] [place] HypochromasiaSlightNormalThe [facility] Health Physician GroupComment on above:Performed By: #### DIFF CBC ####[address] [address] USALymphocytes/100 WBC (Bld)4 %Fzb82-07Nvc [facility] Comment on above:Performed By: #### DIFF CBC ####[address] [address] USAH (RBC) [Entitic mass]27.9 pgNormal 24.7-34.3The [facility] Physician GroupComment on above:Performed By: #### DIFF CBC ####[address] [address] USAMCV (RBC) [Entitic vol]83.7 qAVexvxq99-797Ume [facility] Physician GroupComment on above:Performed By: #### DIFF CBC ####[address] [address] USAMean Corpuscular HGB Conc33.3 g/cVAcaidq45.0-35.0The [facility] Physician GroupComment on above:Performed By: #### DIFF CBC ####[address] [address] [place] Metamyelocytes2 %High0-0The [facility] Physician GroupComment on above:Performed By: #### DIFF CBC ####[address] [address] USAMonocytes/100 WBC (Bld)11 %Normal2-11The [facility]ician [facility] Comment on above:Performed By: #### DIFF CBC ####[address] [address] USANucleated Red Blood Cell2 /100{WBC} High0-0The [facility] Physician GroupComment on above:Performed By: #### DIFF CBC ####[address] [address] [place] OvalocytesSlightNoNovant Health Rehabilitation Hospital Physician GroupComment on above:Performed By: #### DIFF CBC ####[address] [address] USAPlasma Cells1 %High0-0The [facility] Physician GroupComment on above: Performed By: #### DIFF CBC ####[address] [address] USAPlatelet EstimateNormalNormalNoNovant Health Rehabilitation Hospital Physician GroupComment on above:Performed By: #### DIFF CBC ####[address] [address] USAPlatelet mean volume (Bld) [Entitic vol]8.3 fLNormal6.3-10.7The [facility] Physician GroupComment on above:Performed By: #### DIFF CBC ####[address] [address] USAPlatelet MorphologyNormalNormalNormCleveland Clinic Martin South Hospital Physician GroupComment on above:Result Comment: PERFORMED BY:[address] [place], [place] [phone] MEDICAL DIRECTORCARLOS VÁZQUEZ M.D.Performed By: #### DIFF CBC ####[address] [address] USAPlatelets (Bld) [#/Vol]246 10*3/lWSnlwgn434-640Anw [facility] Physician GroupComment on above:Performed By: #### DIFF CBC ####[address] [address] USAPoikilocytosisModerateNormCleveland Clinic Martin South Hospital Physician GroupComment on above:Performed By: #### DIFF CBC ####[address] [address] USAPolychromasiaSlightNoNovant Health Rehabilitation Hospital Physician GroupComment on above:Performed By: #### DIFF CBC ####[address] [address] USARBC (Bld) [#/Vol]2.34 10*6/uLLow 3.60-5.00The [facility] Physician GroupComment on above:Performed By: #### DIFF CBC ####[address] [address] [place] Reactive Lymphocytes2 %Normal0-12The [facility] Physician GroupComment on above: Performed By: #### DIFF CBC ####[address] [address] USASegmented neutrophils/100 WBC (Bld)72 %Boqh91-23Xvq [facility] Physician GroupComment on above:Performed By: #### DIFF CBC ####[address] [address] [place] StomatocytesModerateNoNovant Health Rehabilitation Hospital Physician GroupComment on above: Performed By: #### DIFF CBC ####[address] [address] USATarget CellsSlightNoNovant Health Rehabilitation Hospital Physician GroupComment on above:Performed By: #### DIFF CBC ####[address] [address] USAWBC (Bld) [#/Vol]18.5 10*3/uLHigh 3.8-11.6The [facility] Physician GroupComment on above:Performed By: #### DIFF CBC ####[address] [address] [facility] White Blood Count18.5 [CFU]/mLHigh3.8-11.6The [facility] Health Physician GroupComment on above:Performed By: #### DIFF CBC ####[address] [address] USAHaptoglobinon 28-68-0017Cjkckbymaeq024 mg/dL Ixsuit11-470Kmt [facility] Physician GroupComment on above:Order Comment: TO BE DRAWN WITH REPEAT H H PER JULITO per rn julito will pull from HD cath with HH once pt has units of blood and is transfusedResult Comment: PERFORMED BY:[address] [place], [place] [phone] MEDICAL JACKELYN VÁZQUEZ M.D.Performed By: #### HAPT ####[address] [address] USAHemogram CBC Without Diffon 32-80-1539Kjiysrrhsgk distribution width (RBC) [Ratio]15.7 %High11.9-15.3 The [facility] Physician GroupComment on above:Performed By: #### CBCNO ####[address] [address] [place] Hematocrit (Bld) [Volume fraction]26.0 %Low34.0-46.4The [facility] Physician GroupComment on above:Performed By: #### CBCNO ####[address] [id number] USAHemoglobin (Bld) [Mass/Vol]8.8 g/dLLow 11.8-15.4The [facility] Physician GroupComment on above:Performed By: #### CBCNO ####[address] [address] [facility]ENTER[facility]CH (RBC) [Entitic mass]28.3 kgRclqxw67.7-34.3The [facility] Physician GroupComment on above:Performed By: #### CBCNO ####[address] [place] [address] [facility]ENTERMCV (RBC) [Entitic vol]83.7 eMDrmbrm46-583Otm [facility] Physician GroupComment on above:Performed By: #### CBCNO ####[address] [address] USAMean Corpuscular HGB Conc33.8 g/xJFvkbmr66.0-35.0The [facility] Physician [facility] HospitalComment on above: Performed By: #### CBCNO ####[address] [address] USAPlatelet mean volume (Bld) [Entitic vol]8.1 fLNormal 6.3-10.7The [facility] Physician GroupComment on above:Result Comment: PERFORMED BY:[address] [place] [place], [place] [phone] MEDICAL DIRECTORCARLOS VÁZQUEZ M.D.Performed By: #### CBCNO ####[address] [address] [place] Platelets (Bld) [#/Vol]243 10*3/lAVmrizq076-413Oty [facility] Comment on above:Performed By: #### CBCNO ####[address] USARBC (Bld) [#/Vol]3.11 10*6/uLLow3.60-5.00The [facility] Physician [facility] HospitalComment on above:Performed By: #### CBCNO ####[address] [address] USAWhite Blood Count 21.3 [CFU]/mLHigh3.8-11.6The [facility] Physician GroupComment on above:Performed By: #### CBCNO ####[address] [address] USALDH Lactate Dehydrogenaseon 36-27-4274MBM Lactate Iczcvbgefwyow418 U/L Qbla895-842Ocs [facility]ician [facility] HospitalComment on above:Result Comment: PERFORMED BY:[address] [place], [place] [phone] MEDICAL DIRECTORCARLOS VÁZQUEZ M.D.Performed By: #### BMP, LDH ####[address] [id number] USALeukoReduced RBCon 71-60-2566OhvacBshafvy RBCTRANSFUSED 11/11/24 1413 NormalThe [facility] Physician [facility] Servicescan and CBCon 23-46-1072Jjnxkgnowibb Ql (Bld)SlightNormalThe [facility] Physician [facility] HospitalComment on above:Performed By: #### SCAN CBC ####[place] [address] USABasophils (Bld) [#/Vol]0.0 10*3/uLNormal0.0-0.2The [facility] Physician [facility] HospitalComment on above:Performed By: #### SCAN CBC ####[place] [address] USABasophils/100 WBC (Bld)0.1 %Normal. The [facility] Physician GroupComment on above:Performed By: #### SCAN CBC ####[address] [id number] [place] Eosinophils (Bld) [#/Vol]0.3 10*3/uLNormal0.0-0.45The [facility] Comment on above:Performed By: #### SCAN CBC ####[address] [address] USAEosinophils/100 WBC (Bld)1.5 %Normal. The [facility] Physician GroupComment on above:Performed By: #### SCAN CBC ####[address] Erythrocyte distribution width (RBC) [Ratio]16.2 %High11.9-15.3The [facility] Physician GroupComment on above:Performed By: #### SCAN CBC ####[place] [address] USAHematocrit (Bld) [Volume fraction]19.6 %Off scale low34.0-46.4The [facility] Comment on above:Result Comment: Critical value result called at 0602 on 11/11/24 jPerformed By: #### SCAN CBC ####[place] [address] USAHemoglobin (Bld) [Mass/Vol]6.4 g/dLLow 11.8-15.4The [facility] Physician GroupComment on above:Performed By: #### SCAN CBC ####[address] [address] [place] HypochromasiaSlightNormalThe [facility] Physician GroupComment on above:Performed By: #### SCAN CBC ####[place] [address] USALymphocytes (Bld) [#/Vol]1.4 10*3/uLNormal1.00-4.8The [facility] Physician GroupComment on above:Performed By: #### SCAN CBC ####[address] [id number] USALymphocytes/100 WBC (Bld)7.5 %Normal.The [facility] Physician GroupComment on above:Performed By: #### SCAN CBC ####[place] [address] USAMCH (RBC) [Entitic mass]27.5 isVmprcn76.7-34.3The [facility] Physician GroupComment on above:Performed By: #### SCAN CBC ####[address] [address] USAMCV (RBC) [Entitic vol]84.1 fLNormal 80-100The [facility] Physician GroupComment on above:Performed By: #### SCAN CBC ####[address] [address] USAMean Corpuscular HGB Conc32.7 g/mNDobccc44.0-35.0The [facility] Physician GroupComment on above:Performed By: #### SCAN CBC ####[address] [address] USAMonocytes (Bld) [#/Vol]1.5 10*3/uLHigh0.0-0.8 The [facility] Physician GroupComment on above:Performed By: #### SCAN CBC ####[address] [address] [place] Monocytes/100 WBC (Bld)8.0 %Normal.The [facility] Physician GroupComment on above:Performed By: #### SCAN CBC ####[address] [address] USANeutrophils (Bld) [#/Vol]15.2 10*3/uLHigh1.8-7.7The [facility] Physician GroupComment on above:Performed By: #### SCAN CBC ####[address] [address] [place] Neutrophils/100 WBC (Bld)82.9 %Normal.The [facility] Physician GroupComment on above:Performed By: #### SCAN CBC ####[address] [address] USANRBC%0.1 /100{WBC}Normal0-0.5The [facility] Physician GroupComment on above:Performed By: #### SCAN CBC ####[address] [place] [address] USAOvalocytesModerateNormalThe [facility] Physician GroupComment on above:Performed By: #### SCAN CBC ####[address] [address] [place] Platelet EstimateNormalNormalNormCleveland Clinic [facility] Hospital Physician GroupComment on above:Performed By: #### SCAN CBC ####[address] [address] USAPlatelet mean volume (Bld) [Entitic vol]8.5 fLNormal 6.3-10.7The [facility] Physician GroupComment on above:Performed By: #### SCAN CBC ####[address] [address] [facility] Platelet MorphologyNormalNormalNormCleveland Clinic [facility] Hospital Physician GroupComment on above:Result Comment: PERFORMED BY:[address] [place]KGaloRadhaH[place], [place] [phone] MEDICAL DIRECTORCARLOS VÁZQUEZ M.D.Performed By: #### SCAN CBC ####[address] [address] USAPlatelets (Bld) [#/Vol]231 10*3/tWJhhexe123-836Cck [facility] Physician GroupComment on above:Performed By: #### SCAN CBC ####[address] [address] [facility] PoikilocytosisModerateNoNovant Health Rehabilitation Hospital Physician GroupComment on above: Performed By: #### SCAN CBC ####[address] [address] USAPolychromasiaSlightNoNovant Health Rehabilitation Hospital Physician GroupComment on above:Performed By: #### SCAN CBC ####[address] [address] USARBC (Bld) [#/Vol]2.33 10*6/uLLow 3.60-5.00The [facility] Physician GroupComment on above:Performed By: #### SCAN CBC ####[address] [address] [facility] StomatocytesModerateNoNovant Health Rehabilitation Hospital Physician GroupComment on above: Performed By: #### SCAN CBC ####[address] [address] USATarget CellsSlightNoNovant Health Rehabilitation Hospital Physician GroupComment on above:Performed By: #### SCAN CBC ####[address] [address] USAWBC (Bld) [#/Vol]18.4 10*3/uLHigh 3.8-11.6The [facility] Physician GroupComment on above:Performed By: #### SCAN CBC ####[place] [address] [facility] White Blood Count18.4 [CFU]/mLHigh3.8-11.6The [facility] Physician GroupComment on above:Performed By: #### SCAN CBC ####[address] [address] USAStool Occult Blood (Guaiac)on 53-22-1777Rmteh Occult Blood (Guaiac)NormalThe [facility] Physician GroupComment on above: Performed By: #### OB(GUAIAC), CDT ####[place] [address] USAType and Screenon 13-85-4598TDG and Rh group Nom (Bld)Blood group A Rh(D) positiveNemours Children's Clinic Hospital Physician GroupComment on above:Order Comment: Transfuse now? Y Number of units to transfuse now? 2Result Comment: PERFORMED BY:[address] [address] [address] [place], [place] [phone] MEDICAL JACKELYN VÁZQUEZ M.D. Vancomycin,Randomon 47-71-0633Ywsiijpdtn,Iffjgs99.9High5.0-20.0The [facility] Physician GroupComment on above:Order Comment: Date of last dose?: 20241110 Time of last dose?: 2199Result Comment: Last dose: -PERFORMED BY:[address] [address] [address] [place], [place] [phone] MEDICAL JACKELYN VÁZQUEZ M.D.Performed By: #### VANCR ####[address] [address] USAAerobic Cultureon 11-10-2024 Aerobic CultureNoNovant Health Rehabilitation Hospital Physician GroupComment on above:Performed By: #### AERC, ####[facility] [address] [place] [address] USAArterial Blood Gason 22-06-5674YJS Base Excess0.8 mmol/LNormal-3.0-3.0 The [facility] Physician GroupComment on above:Performed By: #### ABG ####Point of Care testing,ABG Frac Inspired O230 %NormalThe [facility] Group Comment on above:Performed By: #### ABG ####Point of Care testing,ABG Oxygen Content5.8 mmol/LLow6.6-9.7The [facility] Physician GroupComment on above: Performed By: #### ABG ####Point of Care testing,ABG Oxygen Zpxvryabav06.9 % Guqcmq81.0-100.0The [facility] Physician GroupComment on above:Performed By: #### ABG ####Point of Care testing,ABG BWK759.1 mm[Hg]Wxqkpe81.0-45.0The [facility] Physician GroupComment on above:Performed By: #### ABG ####Point of Care testing,ABG PGOY0MpcdnsTqaNovant Health Rehabilitation Hospital Physician GroupComment on above:Performed By: #### ABG ####Point of Care testing,ABG PH7.30Hgmmol8.35-7.45The [facility] Physician GroupComment on above:Performed By: #### ABG ####Point of Care testing,ABG PO281.4 mm[Hg]Ntpuql43.0-100.0The [facility] Physician GroupComment on above:Performed By: #### ABG ####Point of Care testing,ABG TV450 mLNormalThe [facility] Physician GroupComment on above:Performed By: #### ABG ####Point of Care testing,CO2 [Moles/Vol]25.9 mmol/LDgvfxx80.0-27.0The [facility] Physician GroupComment on above:Performed By: #### ABG ####Point of Care testing,HCO3 (Bld) [Moles/Vol]24.8 mmol/LTzsbnp98.0-29.0The [facility] Physician GroupComment on above:Performed By: #### ABG ####Point of Care testing,Respiratory Critical NormalThe [facility] Health Physician GroupComment on above:Result Comment: Critical Value called on: 11/10/2024 at 05:26PERFORMED BY:[address] ABHISHEKGaloRadhaHUI, [place] [phone] MEDICAL DIRECTORCARLOS VÁZQUEZ M.D.Performed By: #### ABG ####Point of Care testing, VBG Draw [facility] Physician GroupComment on above: Performed By: #### ABG ####Point of Care testing,Bacterial susceptibility panel (Isol)on 60-65-4282fpkaTHNSaije [Susc]<=1SusceptibleSusceptible <=2 , Intermediate >2 , Resistant >7[facility] Medical CenterComment on above:Order Comment: Ordering Facility: [facility] Address: [address] [place], [place] [address]Performed By: #### [id number], [id number] #### [facility] CLIA [id number] [address] [place] [address] [place] OF AMERICAMinocycline [Susc]<=1 SusceptibleSusceptible <=4 , Intermediate >4 , Resistant >8[facility] Medical CenterComment on above:Order Comment: Ordering Facility: [facility] Address: [address] [place], [place] [id number] By: #### 60747-7, 78428-6 #### [facility] CLIA [id number] [address] [place] [address] [place] AMERICABacterial susceptibility panel STEPHANIE (Isol)on 99-30-1787Ntavxmbzyefsw identified Cx Nom (Unsp spec)[id number] AbnormalWvumedicine Barnesville HospitalComascension st. john hospital on above:Order Comment: Specimen Type: MICROBIAL ISOLATE Ordering Facility: [facility] Address: [address] [place], [place] [address]Result Comment: Stenotrophomonas maltophilia Identification performed by client.Performed By: #### 75102-5, 90771-5 #### [facility] CLIA [id number] [address] [place] [address] [address] Metabolic Panelon 03-90-2828Zrmcl gap [Moles/Vol]13.3 mmol/LNormal6.0-15.0The [facility] Physician GroupComment on above:Performed By: #### BMP ####[address] [address] USACalcium [Mass/Vol]8.8 mg/dLNormal 8.6-10.3The [facility] Physician GroupComment on above:Performed By: #### BMP ####[address] [address] [place] Chloride [Moles/Vol]100 mmol/OQlnbzc47-212Yao [facility] Physician GroupComment on above:Performed By: #### BMP ####[address] [address] USACO2 [Moles/Vol]25.3 mmol/DUwfijz94.0-31.0The [facility] Physician GroupComment on above:Performed By: #### BMP ####[address] [address] USACreatinine [Mass/Vol] 2.05 mg/dLSignificant change down0.60-1.20The [facility] Physician GroupComment on above:Performed By: #### BMP ####[address] [address] USACreatinine Clr Calc Itlytgfn21.48NormalThe [facility] Physician GroupComment on above:Result Comment: PERFORMED BY:[address] [address] FI[address]DS[address]ST[address] [place], [place] [phone] MEDICAL JACKELYN VÁZQUEZ M.D.Performed By: #### BMP ####[address] [address] USAGFR/1.73 sq M.predicted MDRD (S/P/Bld) [Vol rate/Area]24.981 mL/min/{1.73_m2}NormalThe Atrium Health Physician GroupComment on above:Performed By: #### BMP ####[place] [id number] USAGlucose [Mass/Vol]109 mg/zDVbpg47-832 The [facility] Health Physician GroupComment on above:Result Comment: Random Glucose Reference Range is dependent on time and content of last meal. Glucose of more than 200 mg/dL in a nonstressed, ambulatory subject supports the diagnosis of Diabetes Mellitus. ADA recommended reference rangePerformed By: #### BMP ####[address] [address] [place] Potassium [Moles/Vol]3.6 mmol/LNormal3.5-5.1The [facility] Health Physician GroupComment on above:Performed By: #### BMP ####[place] [address] USASodium [Moles/Vol]135 mmol/LSignificant change down 136-145The [facility] Health Physician GroupComment on above:Performed By: #### BMP ####[address] [address] USAUrea nitrogen [Mass/Vol]29 mg/dLSignificant change down7-25The [facility] Health Physician GroupComment on above:Performed By: #### BMP ####[address] [address] USADiff and CBCon 37-68-9291Iycfjxkbnzrz Ql (Bld)SlightNormalThe Atrium Health Physician GroupComment on above:Performed By: #### DIFF CBC ####[address] [address] USABand form neutrophils/100 WBC (Bld)12 %High0-5The [facility] Health Physician GroupComment on above:Performed By: #### DIFF CBC ####[address] [address] USAEosinophils/100 WBC (Bld)1 %Normal1-3 The [facility] Health Physician GroupComment on above:Performed By: #### DIFF CBC ####[address] [address] [facility] Erythrocyte distribution width (RBC) [Ratio]16.3 %High11.9-15.3The [facility] Health Physician GroupComment on above:Performed By: #### DIFF CBC ####[address] [address] USAHematocrit (Bld) [Volume fraction]25.8 %Low34.0-46.4The [facility] Health Physician GroupComment on above:Performed By: #### DIFF CBC ####[place] [address] USAHemoglobin (Bld) [Mass/Vol]8.6 g/dLLow11.8-15.4The [facility] Health Physician GroupComment on above:Performed By: #### DIFF CBC ####[place] [id number] [place] HypochromasiaModerateNoNovant Health Rehabilitation Hospital Physician GroupComment on above: Performed By: #### DIFF CBC ####[address] [address] USALarge PlateletsSlightNoNovant Health Rehabilitation Hospital Physician GroupComment on above:Result Comment: PERFORMED BY:[address] ABHISHEKAlirioBROKEN ARROW, [place] [phone] MEDICAL JACKELYN VÁZQUEZ M.D.Performed By: #### DIFF CBC ####[place] [id number] USALymphocytes/100 WBC (Bld)3 % Gwg15-59Mjs [facility] Physician GroupComment on above:Performed By: #### DIFF CBC ####[address] [address] USAMCH (RBC) [Entitic mass]27.6 gkLjhhpf65.7-34.3The [facility] Health Physician GroupComment on above:Performed By: #### DIFF CBC ####[address] [address] USAMCV (RBC) [Entitic vol]83.0 aOTixbvn91-926Yfp [facility] Physician GroupComment on above:Performed By: #### DIFF CBC ####[address] [address] USAMean Corpuscular HGB Conc33.3 g/uSTmzekv82.0-35.0The [facility] Health Physician GroupComment on above:Performed By: #### DIFF CBC ####[address] [address] USAMetamyelocytes1 %High0-0The [facility] Health Physician GroupComment on above:Performed By: #### DIFF CBC ####[address] [address] USAMonocytes/100 WBC (Bld)8 %Normal2-11The [facility] Health Physician GroupComment on above:Performed By: #### DIFF CBC ####[address] [address] USAPlasma Cells1 %High0-0The [facility] Health Physician GroupComment on above: Performed By: #### DIFF CBC ####[address] [address] USAPlatelet EstimateNormalNormalNormalThe Atrium Health Physician GroupComment on above:Performed By: #### DIFF CBC ####[address] [address] USAPlatelet mean volume (Bld) [Entitic vol]8.2 fLNormal6.3-10.7The [facility] Health Physician GroupComment on above:Result Comment: PERFORMED BY:[address] [place], [place] [phone] MEDICAL JACKELYN VÁZQUEZ M.D.Performed By: #### DIFF CBC ####[address] [address] USAPlatelets (Bld) [#/Vol]246 10*3/fSGjgykt916-654Ilp [facility] Physician GroupComment on above:Performed By: #### DIFF CBC ####[address] [address] [place] PoikilocytosisSlightNormalThe [place]lands Physician GroupComment on above: Performed By: #### DIFF CBC ####[address] [address] USAPolychromasiaSGood Hope Hospital Physician GroupComment on above:Performed By: #### DIFF CBC ####[address] [address] USAPromyelocytes1 %High0-0The [facility] Physician GroupComment on above:Performed By: #### DIFF CBC ####[address] [address] USARBC (Bld) [#/Vol]3.11 10*6/uLLow3.60-5.00The [facility] Health Physician GroupComment on above:Performed By: #### DIFF CBC ####[address] [address] [facility] CENTERRouleauxSGood Hope Hospital Physician GroupComment on above: Performed By: #### DIFF CBC ####[address] [address] USASegmented neutrophils/100 WBC (Bld)74 %Dmlk30-16Mrm [facility] Physician GroupComment on above:Performed By: #### DIFF CBC ####[address] [address] [facility] StomatocytesSGood Hope Hospital Physician GroupComment on above:Performed By: #### DIFF CBC ####[address] [address] USAWBC (Bld) [#/Vol]15.7 10*3/uLHigh3.8-11.6The [facility] Health Physician GroupComment on above:Performed By: #### DIFF CBC ####[address] [address] USAWhite Blood Count15.7 [CFU]/mLHigh 3.8-11.6The [facility] Health Physician GroupComment on above:Performed By: #### DIFF CBC ####[address] [address] [place] Glucose Poct Glucometerson 64-58-1541Kmguykf9Kzp6: Cleaned MeterNoFirelands Regional Medical CenterComment on above:Result Comment: PERFORMED BY:[place] [address] [address] [place], [place] [phone] MEDICAL JACKELYN VÁZQUEZ M.D.Performed By: #### GLULS ####Point of Care testing,Glucose [Mass/Vol]86 mg/dLNoNovant Health Rehabilitation Hospital Physician [facility] HospitalComment on above:Result Comment: Random Glucose Reference Range is dependent on time and content of last meal. Glucose of more than 200 mg/dL in a nonstressed, ambulatory subject supports the diagnosis of Diabetes Mellitus.Performed By: #### GLULS ####Point of Care testing,Gram Stainon 11-98-8784Amukidneuei observation Gram stain Nom (Unsp spec)Gram Stain Result 2+ White Blood Cells 1+ Epithelial Cells 2+ Yeast Like Elements PERFORMED BY: [facility] [address] [place] [address] PATHOLOGIST MINE BOSS CARLOS VÁZQUEZ M.D.NormalThe Atrium Health Physician GroupComment on above: Performed By: #### AERC, GS ####[address] [address] USAISTAT Glucose Pocon 37-22-2275Slkxqkg [Mass/Vol]100 mg/aUDzersd89-566Kco [facility] Physician GroupComment on above:Result Comment: PERFORMED BY:[address] WETZELLOM[place], [place] [phone] MEDICAL JACKELYN VÁZQUEZ M.D.Performed By: #### ISGLU ####Point of Care testing,Glucose [Mass/Vol]107 mg/dQPapc61-515Jgx [facility] Physician GroupComment on above:Result Comment: PERFORMED BY:[address] [place] [place], [place] [phone] MEDICAL JACKELYN VÁZQUEZ M.D.Performed By: #### ISGLU ####Point of Care testing,XR chest 1V portableon 65-56-5551XU chest 1V portableSt. Mary's Regional Medical Center GroupArterial Blood Gason 35-00-9203LET Base Excess-1.5 mmol/LNormal-3.0-3.0[facility] Physician [facility] HospitalComment on above:Performed By: #### ABG ####Point of Care testing,ABG Frac Inspired O230 %NormalThe Atrium Health Physician GroupComment on above:Performed By: #### ABG ####Point of Care testing,ABG Oxygen Content5.9 mmol/LLow6.6-9.7The [facility] Comment on above:Performed By: #### ABG ####Point of Care testing,ABG Oxygen Ylbtxkrhwl30.8 %Pumihy45.0-100.0[facility] Physician GroupComment on above: Performed By: #### ABG ####Point of Care testing,ABG QNQ146.8 mm[Hg]Off scale low35.0-45.0The [facility] Physician GroupComment on above:Performed By: #### ABG ####Point of Care testing,ABG HXJV8ThauisYvsNovant Health Rehabilitation Hospital Physician GroupComment on above:Performed By: #### ABG ####Point of Care testing,ABG PH7.50High 7.35-7.45The [facility] Physician [facility] HospitalComment on above:Performed By: #### ABG ####Point of Care testing,ABG TZ6209.7 mm[Hg]High80.0-100.0The [facility] Physician GroupComment on above:Performed By: #### ABG ####Point of Care testing,ABG TV450 mLNormalThe [facility] Health Physician GroupComment on above: Performed By: #### ABG ####Point of Care testing,CO2 [Moles/Vol]21.9 mmol/LLow 23.0-27.0[facility] Physician GroupComment on above:Performed By: #### ABG ####Point of Care testing,HCO3 (Bld) [Moles/Vol]21.0 mmol/LLow23.0-29.0The [facility] Physician GroupComment on above:Performed By: #### ABG ####Point of Care testing,Respiratory CriticalNemours Children's Clinic Hospital Physician GroupComment on above:Result Comment: Critical Value called on: 11/09/2024 at 20:53PERFORMED BY:[facility], [place] [phone] MEDICAL DIRECTORCARLOS VÁZQUEZ M.D.Performed By: #### ABG ####Point of Care testing,VBG Draw SiteRight RadialNemours Children's Clinic Hospital Physician GroupComment on above:Performed By: #### ABG ####Point of Care testing,ABG Base Excess-9.3 mmol/LLow-3.0-3.0The [facility] Comment on above:Performed By: #### ABG ####Point of Care testing,ABG Frac Inspired O230 %NormalAdventhealth Central Pasco Er Physician GroupComment on above:Performed By: #### ABG ####Point of Care testing,ABG Oxygen Content5.8 mmol/LLow6.6-9.7The [facility] Physician GroupComment on above:Performed By: #### ABG ####Point of Care testing,ABG Oxygen Mtocvelzsj82.4 %Dhrksw57.0-100.0[facility] Physician GroupComment on above:Performed By: #### ABG ####Point of Care testing,ABG PCO2 33.9 mm[Hg]Low35.0-45.0[facility] Physician GroupComment on above:Performed By: #### ABG ####Point of Care testing,ABG LQOS4FxceisGotNovant Health Rehabilitation Hospital Physician GroupComment on above:Performed By: #### ABG ####Point of Care testing,ABG PH 7.30Low7.35-7.45[facility] Physician GroupComment on above:Performed By: #### ABG ####Point of Care testing,ABG HV6361.4 mm[Hg]Off scale high80.0-100.0[facility] Physician GroupComment on above:Performed By: #### ABG ####Point of Care testing,ABG TV450 mLNormalThe [facility] Physician GroupComment on above: Performed By: #### ABG ####Point of Care testing,CO2 [Moles/Vol]17.3 mmol/LLow 23.0-27.0The [facility] Physician GroupComment on above:Performed By: #### ABG ####Point of Care testing,HCO3 (Bld) [Moles/Vol]16.2 mmol/LLow23.0-29.0The [facility] Physician GroupComment on above:Performed By: #### ABG ####Point of Care testing,Respiratory CriticalNoNovant Health Rehabilitation Hospital Physician GroupComment on above:Result Comment: Critical Value called on: 11/09/2024 at 13:18PERFORMED BY:[place] [address] [address] [place], [place] [phone] MEDICAL DIRECTORCARLOS VÁZQUEZ M.D.Performed By: #### ABG ####Point of Care testing,Set Respiratory Gucf11JmzrpoGtzNemours Children's Clinic Hospital Physician GroupComment on above:Performed By: #### ABG ####Point of Care testing,VBG Draw SiteArtlineNemours Children's Clinic Hospital Physician [facility] HospitalComment on above: Performed By: #### ABG ####Point of Care testing,Ventilator ModeACNemours Children's Clinic Hospital Physician [facility] HospitalComment on above:Performed By: #### ABG ####Point of Care testing,ABG Base Excess-8.2 mmol/LLow-3.0-3.0The [facility] Comment on above:Order Comment: drawn from HD catheter by RNPerformed By: #### ABG ####Point of Care testing,ABG Frac Inspired O230 %NormalThe [facility] Health Physician GroupComment on above:Order Comment: drawn from HD catheter by RN Performed By: #### ABG ####Point of Care testing,ABG Oxygen Content4.8 mmol/LLow 6.6-9.7The [facility] Physician GroupComment on above:Order Comment: drawn from HD catheter by RNPerformed By: #### ABG ####Point of Care testing,ABG Oxygen Qdrofovpza33.3 %Low95.0-100.0The [facility] Physician GroupComment on above:Order Comment: drawn from HD catheter by RNPerformed By: #### ABG ####Point of Care testing,ABG ZVS070.3 mm[Hg]Qkadfm03.0-45.0The [facility] Physician GroupComment on above:Order Comment: drawn from HD catheter by RNPerformed By: #### ABG ####Point of Care testing,ABG TBLY0FgahoiBbiCleveland Clinic [facility] Hospital Physician GroupComment on above:Order Comment: drawn from HD catheter by RNPerformed By: #### ABG ####Point of Care testing,ABG PH7.29Low7.35-7.45The [facility] Comment on above:Order Comment: drawn from HD catheter by RNPerformed By: #### ABG ####Point of Care testing,ABG PO250.1 mm[Hg]Low80.0-100.0The [facility] Physician GroupComment on above:Order Comment: drawn from HD catheter by RN Performed By: #### ABG ####Point of Care testing,ABG TV450 mLNormalThe [facility] Physician GroupComment on above:Order Comment: drawn from HD catheter by RN Performed By: #### ABG ####Point of Care testing,CO2 [Moles/Vol]19.0 mmol/LLow 23.0-27.0The [facility] Physician GroupComment on above:Order Comment: drawn from HD catheter by RNPerformed By: #### ABG ####Point of Care testing,HCO3 (Bld) [Moles/Vol]17.8 mmol/LLow23.0-29.0The [facility] Physician GroupComment on above: Order Comment: drawn from HD catheter by RNPerformed By: #### ABG ####Point of Care testing,Respiratory CriticalNoNovant Health Rehabilitation Hospital Physician GroupComment on above:Order Comment: drawn from HD catheter by RNResult Comment: Critical Value called on: 11/09/2024 at 13:16PERFORMED BY:[facility] [place], [place] [phone] MEDICAL JACKELYN VÁZQUEZ M.D.Performed By: #### ABG ####Point of Care testing,Set Respiratory Nxdc58IupwclWtmNovant Health Rehabilitation Hospital Physician GroupComment on above:Order Comment: drawn from HD catheter by RNPerformed By: #### ABG ####Point of Care testing,VBG Draw SiteOtherNoNovant Health Rehabilitation Hospital Physician GroupComment on above:Order Comment: drawn from HD catheter by RNPerformed By: #### ABG ####Point of Care testing, Ventilator ModeACNoNovant Health Rehabilitation Hospital Physician GroupComment on above:Order Comment: drawn from HD catheter by RNPerformed By: #### ABG ####Point of Care testing,ABG Base Excess-8.0 mmol/LLow-3.0-3.0[facility]ician Group Comment on above:Performed By: #### ABG ####Point of Care testing,ABG Frac Inspired O230 %NormalAdventhealth Central Pasco Er Physician GroupComment on above:Performed By: #### ABG ####Point of Care testing,ABG Oxygen Content5.5 mmol/LLow6.6-9.7The [facility] Physician GroupComment on above:Performed By: #### ABG ####Point of Care testing,ABG Oxygen Qjtquanjpj22.8 %Jxnftn32.0-100.0[facility] Physician GroupComment on above:Performed By: #### ABG ####Point of Care testing,ABG PCO2 35.6 mm[Hg]Odldhy27.0-45.0[facility] Physician GroupComment on above: Performed By: #### ABG ####Point of Care testing,ABG MIYS9IceuipWctNovant Health Rehabilitation Hospital Physician GroupComment on above:Performed By: #### ABG ####Point of Care testing,ABG PH7.31Low7.35-7.45[facility] Physician GroupComment on above: Performed By: #### ABG ####Point of Care testing,ABG BP4859.3 mm[Hg]High 80.0-100.0[facility] Physician GroupComment on above:Performed By: #### ABG ####Point of Care testing,ABG TV450 mLNormalThe [facility] Physician GroupComment on above:Performed By: #### ABG ####Point of Care testing,CO2 [Moles/Vol]18.6 mmol/LLow23.0-27.0The [facility] Physician GroupComment on above:Performed By: #### ABG ####Point of Care testing,HCO3 (Bld) [Moles/Vol]17.5 mmol/LLow23.0-29.0 The [facility] Physician GroupComment on above:Performed By: #### ABG ####Point of Care testing,Respiratory CriticalNoNovant Health Rehabilitation Hospital Physician GroupComment on above:Result Comment: Critical Value called on: 11/09/2024 at 06:07PERFORMED BY:[address] [place] [place], [place] [phone] MEDICAL DIRECTORCARLOS VÁZQUEZ M.D.Performed By: #### ABG ####Point of Care testing,Set Respiratory Xpui62KvivuhSfhNemours Children's Clinic Hospital Physician GroupComment on above:Performed By: #### ABG ####Point of Care testing,VBG Draw SiteArtlineNemours Children's Clinic Hospital Physician GroupComment on above: Performed By: #### ABG ####Point of Care testing,Ventilator ModeACNoNovant Health Rehabilitation Hospital Physician GroupComment on above:Performed By: #### ABG ####Point of Care testing,Basic Metabolic Panelon 92-41-3189Cvumh gap [Moles/Vol]19.1 mmol/L High6.0-15.0The [facility] Physician GroupComment on above:Performed By: #### BMP ####[address] [address] [place] Calcium [Mass/Vol]9.2 mg/dLNormal8.6-10.3The [facility] Physician GroupComment on above:Performed By: #### BMP ####[place] [address] [place] [address] USAChloride [Moles/Vol]106 mmol/PMkezex47-975Ezc [facility] Physician GroupComment on above:Performed By: #### BMP ####[address] [place] [address] USACO2 [Moles/Vol]19.2 mmol/LLow21.0-31.0The [facility] Physician GroupComment on above:Performed By: #### BMP ####[address] [address] USACreatinine [Mass/Vol]3.48 mg/dLHigh0.60-1.20ThValor Health Physician Group Comment on above:Performed By: #### BMP ####[address] [address] USACreatinine Clr Calc Qclqqyyh45.92NormalThValor Health Physician GroupComment on above:Result Comment: PERFORMED BY:[address] [place], [place] [phone] MEDICAL JACKELYN VÁZQUEZ M.D.Performed By: #### BMP ####[address] [address] USAGFR/1.73 sq M.predicted MDRD (S/P/Bld) [Vol rate/Area]13.238 mL/min/{1.73_m2}NormalThe [facility] Physician GroupComment on above:Performed By: #### BMP ####[address] [address] USAGlucose [Mass/Vol]113 mg/sADwjs74-963Mzb [facility] Physician GroupComment on above:Result Comment: Random Glucose Reference Range is dependent on time and content of last meal. Glucose of more than 200 mg/dL in a nonstressed, ambulatory subject supports the diagnosis of Diabetes Mellitus. ADA recommended reference rangePerformed By: #### BMP ####[address] [address] USAPotassium [Moles/Vol]3.3 mmol/LLow3.5-5.1The [facility] Physician GroupComment on above:Performed By: #### BMP ####[address] [address] USASodium [Moles/Vol]141 mmol/HDsgqtg244-786Wfc [facility] Physician GroupComment on above:Performed By: #### BMP ####[address] [address] USAUrea nitrogen [Mass/Vol]62 mg/dLHigh7-25The [facility] Physician GroupComment on above: Performed By: #### BMP ####[address] [address] USADiff and CBCon 83-05-9693Kmlbcyegsmqz Ql (Bld)Slight NormalThe [facility] Physician GroupComment on above:Performed By: #### DIFF CBC ####[address] [address] USABand form neutrophils/100 WBC (Bld)2 %Normal0-5The [facility] Physician GroupComment on above:Performed By: #### DIFF CBC ####[address] [address] USAErythrocyte distribution width (RBC) [Ratio] 16.7 %High11.9-15.3The [facility] Physician GroupComment on above:Performed By: #### DIFF CBC ####[address] [address] USAHematocrit (Bld) [Volume fraction]25.0 %Low34.0-46.4The [facility] Physician GroupComment on above:Performed By: #### DIFF CBC ####[address] [address] USAHemoglobin (Bld) [Mass/Vol]8.2 g/dLLow11.8-15.4The [facility] Physician GroupComment on above: Performed By: #### DIFF CBC ####[address] [address] USAHypochromasiaModerateNormCleveland Clinic [facility] Hospital Physician GroupComment on above:Performed By: #### DIFF CBC ####[address] [address] USALarge PlateletsSlightNormCleveland Clinic Martin South Hospital Physician GroupComment on above:Result Comment: PERFORMED BY:[place] [address] [address] [place], [place] [phone] MEDICAL DIRECTORCARLOS VÁZQUEZ M.D.Performed By: #### DIFF CBC ####[address] [address] USALymphocytes/100 WBC (Bld)5 %Ehb67-73Sie [facility] Physician GroupComment on above:Performed By: #### DIFF CBC ####[address] [address] [facility] (RBC) [Entitic mass]27.5 otTjwodn83.7-34.3The [facility] Comment on above:Performed By: #### DIFF CBC ####[address] [address] [facility] (RBC) [Entitic vol]83.5 fLNormal 80-100The [facility] Physician GroupComment on above:Performed By: #### DIFF CBC ####[place] [id number] USAMean Corpuscular HGB Conc33.0 g/dNGaqxxj62.0-35.0The [facility] Physician GroupComment on above:Performed By: #### DIFF CBC ####[address] [address] USAMetamyelocytes7 %High0-0The [facility] Physician GroupComment on above:Performed By: #### DIFF CBC ####[address] [address] USAMonocytes/100 WBC (Bld)8 %Normal2-11The [facility] Physician GroupComment on above:Performed By: #### DIFF CBC ####[address] [address] USAMyelocytes6 %High0-0The [facility] Physician GroupComment on above: Performed By: #### DIFF CBC ####[address] [address] USANucleated Red Blood Cell1 /100{WBC}High0-0The [facility] Physician GroupComment on above:Performed By: #### DIFF CBC ####[address] [place] [address] [place] OvalocytesSlightNoNovant Health Rehabilitation Hospital Physician GroupComment on above:Performed By: #### DIFF CBC ####[place] [address] USAPlatelet EstimateNormalNormalNormCleveland Clinic [facility] Hospital Physician Group Comment on above:Performed By: #### DIFF CBC ####[place] [address] USAPlatelet mean volume (Bld) [Entitic vol]8.0 fLNormal6.3-10.7The [facility] Physician GroupComment on above:Performed By: #### DIFF CBC ####[place] [address] USAPlatelets (Bld) [#/Vol]212 10*3/aJGfelcb221-926Raj [facility] Physician GroupComment on above:Performed By: #### DIFF CBC ####[place] [address] USAPoikilocytosisSlight NormalAdventhealth Central Pasco Er Physician GroupComment on above:Performed By: #### DIFF CBC ####[place] [address] [place] PolychromasiaSlightNormCleveland Clinic Martin [facility] Hospital Physician GroupComment on above:Performed By: #### DIFF CBC ####[place] [address] USAPromyelocytes2 %High0-0The [facility] Physician GroupComment on above:Performed By: #### DIFF CBC ####[place] [address] USARBC (Bld) [#/Vol]2.99 10*6/uLLow3.60-5.00The [facility] Physician GroupComment on above:Performed By: #### DIFF CBC ####[place] [address] [place] Segmented neutrophils/100 WBC (Bld)72 %Igqb99-80KwcAdventhealth Central Pasco Er Physician Group Comment on above:Performed By: #### DIFF CBC ####[address] [address] USAStomatocytesSlightNormalThe [facility] Physician [facility] HospitalComment on above:Performed By: #### DIFF CBC ####[place] [address] USAWBC (Bld) [#/Vol]12.6 10*3/uLHigh3.8-11.6The [facility] Physician [facility] HospitalComment on above:Performed By: #### DIFF CBC ####[place] [address] USAWhite Blood Count12.6 [CFU]/mLHigh3.8-11.6The [facility] Comment on above:Performed By: #### DIFF CBC ####[place] [address] USAISTAT Glucose Pocon 51-23-0197Ossxzqk [Mass/Vol]92 mg/uXBcshtp98-775Nde [facility] Physician [facility] HospitalComment on above: Result Comment: PERFORMED BY:[address] [place], [place] [phone] MEDICAL JACKELYN VÁZQUEZ M.D.Performed By: #### ISGLU ####Point of Care testing,Glucose [Mass/Vol]103 mg/gNQphrmo37-305Ekk [facility] Physician [facility] HospitalComment on above:Result Comment: PERFORMED BY:[address] [place], [place] [phone] MEDICAL JACKELYN VÁZQUEZ M.D.Performed By: #### ISGLU ####Point of Care testing,Triglycerideson 18-60-8007Lezhxujrqfty [Mass/Vol]212 mg/pGNuzi72-211Htv [facility] Physician GroupComment on above: Result Comment: TRIG ATP III CLASSIFICATION TRIG less than 150 mg/dL Normal TRIG 150-199 mg/dL Borderline high TRIG 200-500 mg/dL High TRIG greater than 500 mg/dL Very high Standard traceable to the Center for Disease Conrtrol and Prevention (CDC) test method.PERFORMED BY:[address] [place], [place] [phone] MEDICAL JACKELYN VÁZQUEZ M.D.Performed By: #### TRIG ####[address] [place] [address] USAVancomycin,Randomon 11-09-2024 Vancomycin,Dmrrfb76.3Xrsiob8.0-20.0The [facility] Physician GroupComment on above:Order Comment: Date of last dose?: 20241105 Time of last dose?: 99Result Comment: Last dose: -PERFORMED BY:[address] [address] [address] [place], [place] [phone] MEDICAL JACKELYN VÁZQUEZ M.D.Performed By: #### VANCR ####[address] [address] USAXR chest 1V portableon 70-94-0734RP chest 1V portableNoNovant Health Rehabilitation Hospital Physician GroupArterial Blood Gason 79-92-0426BSZ Base Excess-6.4 mmol/LLow-3.0-3.0The [facility] Physician GroupComment on above: Performed By: #### ABG ####Point of Care testing,ABG Frac Inspired O230 %Normal The [facility] Health Physician GroupComment on above:Performed By: #### ABG ####Point of Care testing,ABG Oxygen Content5.8 mmol/LLow6.6-9.7The [facility] Physician GroupComment on above:Performed By: #### ABG ####Point of Care testing,ABG Oxygen Zifltchvgj73.7 %Kvlhgg12.0-100.0The [facility] Physician GroupComment on above:Performed By: #### ABG ####Point of Care testing,ABG VZJ302.7 mm[Hg]Normal 35.0-45.0The [facility] Physician GroupComment on above:Performed By: #### ABG ####Point of Care testing,ABG EAOE2DvgkkeGrf [facility] Physician GroupComment on above:Performed By: #### ABG ####Point of Care testing,ABG PH7.33Low7.35-7.45 The [facility] Physician GroupComment on above:Performed By: #### ABG ####Point of Care testing,ABG BV8455.8 mm[Hg]High80.0-100.0[facility] Comment on above:Performed By: #### ABG ####Point of Care testing,ABG TV450 mL NormalThe [facility]rium Health Physician GroupComment on above:Performed By: #### ABG ####Point of Care testing,CO2 [Moles/Vol]20.0 mmol/LLow23.0-27.0The [facility] Physician GroupComment on above:Performed By: #### ABG ####Point of Care testing,HCO3 (Bld) [Moles/Vol]18.9 mmol/LLow23.0-29.0The [facility] Physician GroupComment on above:Performed By: #### ABG ####Point of Care testing, Respiratory CriticalNormCleveland Clinic Martin South Hospital Physician GroupComment on above:Result Comment: Critical Value called on: 11/08/2024 at 06:38PERFORMED BY:[address] [place], [place] [phone] MEDICAL DIRECTORCARLOS VÁZQUEZ M.D.Performed By: #### ABG ####Point of Care testing,Set Respiratory Xvdx68VawhwkQnn [place] Physician [facility] HospitalComment on above:Performed By: #### ABG ####Point of Care testing,VBG Draw SiteArtline NormalThe [facility] Health Physician GroupComment on above:Performed By: #### ABG ####Point of Care testing,Ventilator ModeACNoNovant Health Rehabilitation Hospital Physician Group Comment on above:Performed By: #### ABG ####Point of Care testing,Basic Metabolic Panelon 53-19-9245Jmwqh gap [Moles/Vol]16.8 mmol/LHigh6.0-15.0The [facility] Physician GroupComment on above:Performed By: #### BMP ####[address] [address] USACalcium [Mass/Vol]8.7 mg/dLNormal8.6-10.3The [facility] Physician GroupComment on above:Performed By: #### BMP ####[address] [address] USAChloride [Moles/Vol]107 mmol/QTspqne10-676Cmd [facility] Comment on above:Performed By: #### BMP ####[address] [address] USACO2 [Moles/Vol]19.4 mmol/LLow21.0-31.0The [facility] Physician GroupComment on above:Performed By: #### BMP ####[address] [address] USACreatinine [Mass/Vol] 3.21 mg/dLHigh0.60-1.20The [facility] Physician GroupComment on above:Performed By: #### BMP ####[address] [address] USACreatinine Clr Calc Eqhknrnk91.18NormalThValor Health Physician Group Comment on above:Result Comment: PERFORMED BY:[address] [place], [place] [phone] MEDICAL JACKELYN VÁZQUEZ M.D.Performed By: #### BMP ####[address] [address] USAGFR/1.73 sq M.predicted MDRD (S/P/Bld) [Vol rate/Area]14.585 mL/min/{1.73_m2}NormalThe [facility] Health Physician GroupComment on above:Performed By: #### BMP ####[address] [address] USAGlucose [Mass/Vol]112 mg/wQZepl41-925 The [facility] Physician GroupComment on above:Result Comment: Random Glucose Reference Range is dependent on time and content of last meal. Glucose of more than 200 mg/dL in a nonstressed, ambulatory subject supports the diagnosis of Diabetes Mellitus. ADA recommended reference rangePerformed By: #### BMP ####[address] [address] [place] Potassium [Moles/Vol]3.2 mmol/LLow3.5-5.1The [facility] Physician GroupComment on above:Performed By: #### BMP ####[address] [address] USASodium [Moles/Vol]140 mmol/ZPuyscd565-123Eyf [facility] Physician GroupComment on above:Performed By: #### BMP ####[id number] USAUrea nitrogen [Mass/Vol]56 mg/dLHigh7-25The [facility] Physician GroupComment on above: Performed By: #### BMP ####[address] [address] USADiff and CBCon 05-53-9774Dsxgvcfiuwvn Ql (Bld)Slight NormalThe [facility] Health Physician GroupComment on above:Performed By: #### PATH SLIDE REV, DIFF CBC ####[place] [address] USABand form neutrophils/100 WBC (Bld)6 %High0-5The [facility] Physician GroupComment on above:Performed By: #### PATH SLIDE REV, DIFF CBC ####[place] [address] [place] Erythrocyte distribution width (RBC) [Ratio]16.7 %High11.9-15.3The [facility] Physician GroupComment on above:Performed By: #### PATH SLIDE REV, DIFF CBC ####[place] [id number] USAGiant Platelet Tally2 /100{WBC}NormalThe [facility] Health Physician GroupComment on above: Performed By: #### PATH SLIDE REV, DIFF CBC ####[address] [address] USAHematocrit (Bld) [Volume fraction]26.5 %Low34.0-46.4The [facility] Physician GroupComment on above:Performed By: #### PATH SLIDE REV, DIFF CBC ####[address] [address] USAHemoglobin (Bld) [Mass/Vol]8.8 g/dLLow11.8-15.4The [facility] Physician GroupComment on above:Performed By: #### PATH SLIDE REV, DIFF CBC ####[address] [address] USAHypochromasiaModerateNoNovant Health Rehabilitation Hospital Physician GroupComment on above: Performed By: #### PATH SLIDE REV, DIFF CBC ####[address] [address] USALarge PlateletsSlightNoNovant Health Rehabilitation Hospital Physician GroupComment on above:Result Comment: PERFORMED BY:[address] [place], [place] [phone] MEDICAL DIRECTORCARLOS VÁZQUEZ M.D.Performed By: #### PATH SLIDE REV, DIFF CBC ####[address] [address] [place] Lymphocytes/100 WBC (Bld)2 %Nim04-16Ilh [facility] Physician GroupComment on above:Performed By: #### PATH SLIDE REV, DIFF CBC ####[address] [address] [facility] (RBC) [Entitic mass]27.7 pgNormal 24.7-34.3The [facility] Physician GroupComment on above:Performed By: #### PATH SLIDE REV, DIFF CBC ####[address] [address] [facility] (RBC) [Entitic vol]82.9 dWJpczvi95-248Mlz [facility] Physician GroupComment on above:Performed By: #### PATH SLIDE REV, DIFF CBC ####[address] [address] USAMean Corpuscular HGB Conc33.4 g/eYHiorjx47.0-35.0The [facility] Physician GroupComment on above: Performed By: #### PATH SLIDE REV, DIFF CBC ####[address] [address] USAMetamyelocytes7 %High0-0The [facility] Physician GroupComment on above:Performed By: #### PATH SLIDE REV, DIFF CBC ####[address] [address] [place] Monocytes/100 WBC (Bld)8 %Normal2-11The [facility] Physician GroupComment on above:Performed By: #### PATH SLIDE REV, DIFF CBC ####[address] [address] USAMyelocytes2 %High0-0The [facility] Physician GroupComment on above:Performed By: #### PATH SLIDE REV, DIFF CBC ####[address] [address] [place] Nucleated Red Blood Cell3 /100{WBC}High0-0The [facility] Physician GroupComment on above:Performed By: #### PATH SLIDE REV, DIFF CBC ####[address] [address] USAOvalocytesSlightNormCleveland Clinic [facility] Hospital Physician GroupComment on above:Performed By: #### PATH SLIDE REV, DIFF CBC ####[address] [address] USAPlasma Cells3 %High0-0The [facility] Physician GroupComment on above:Performed By: #### PATH SLIDE REV, DIFF CBC ####[address] [address] USAPlatelet EstimateNormalNormalNormCleveland Clinic [facility] Hospital Physician GroupComment on above:Performed By: #### PATH SLIDE REV, DIFF CBC ####[address] [address] [place] Platelet mean volume (Bld) [Entitic vol]8.0 fLNormal6.3-10.7The [facility] Physician GroupComment on above:Result Comment: PERFORMED BY:[address] [place], [place] [phone] MEDICAL DIRECTORCARLOS VÁZQUEZ M.D.Performed By: #### PATH SLIDE REV, DIFF CBC ####[address] [address] [place] Platelets (Bld) [#/Vol]200 10*3/vLKgikjb493-475Nea [facility] Comment on above:Performed By: #### PATH SLIDE REV, DIFF CBC ####[address] [address] USAPoikilocytosisSlight NormalThe [facility] Physician GroupComment on above:Performed By: #### PATH SLIDE REV, DIFF CBC ####[address] [address] USAPolychromasiaModerateNormCleveland Clinic [facility] Hospital Physician GroupComment on above:Performed By: #### PATH SLIDE REV, DIFF CBC ####[address] [address] USARBC (Bld) [#/Vol]3.19 10*6/uLLow 3.60-5.00The [facility] Physician GroupComment on above:Performed By: #### PATH SLIDE REV, DIFF CBC ####[address] [address] USARouleauxSlightNoNovant Health Rehabilitation Hospital Physician GroupComment on above: Performed By: #### PATH SLIDE REV, DIFF CBC ####[address] [address] USASegmented neutrophils/100 WBC (Bld)72 %Upst02-20Bci [facility] Physician GroupComment on above:Performed By: #### PATH SLIDE REV, DIFF CBC ####[address] [address] USAStomatocytesSlightNoNovant Health Rehabilitation Hospital Physician GroupComment on above:Performed By: #### PATH SLIDE REV, DIFF CBC ####[address] [address] USAWBC (Bld) [#/Vol]10.2 10*3/uLNormal 3.8-11.6The [facility] Physician GroupComment on above:Performed By: #### PATH SLIDE REV, DIFF CBC ####[address] [address] USAWhite Blood Count10.2 [CFU]/mLNormal3.8-11.6The [facility] Physician GroupComment on above:Performed By: #### PATH SLIDE REV, DIFF CBC ####[address] [place] [address] USAGlucose Poct Glucometerson 71-95-8219Yicmcwa4WyxlyeLmu [place] Physician [facility] HospitalComment on above:Result Comment: Glu2: WILL NOTIFY DR/RNPERFORMED BY:[address] [place], [place] [phone] MEDICAL JACKELYN VÁZQUEZ M.D.Performed By: #### GLULS ####Point of Care testing, Glucose [Mass/Vol]52 mg/dLOff scale [facility] Physician [facility] HospitalComment on above:Result Comment: Random Glucose Reference Range is dependent on time and content of last meal. Glucose of more than 200 mg/dL in a nonstressed, ambulatory subject supports the diagnosis of Diabetes Mellitus.Performed By: #### GLULS ####Point of Care testing,Ieupkxs5JocmnuWbp[address] Physician [facility] Comment on above:Result Comment: Glu2: Will Repeat TestPERFORMED BY:[address] [place], [place] [phone] MEDICAL JACKELYN VÁZQUEZ M.D.Performed By: #### GLULS ####Point of Care testing,Glucose [Mass/Vol]32 mg/dLOff scale [facility] Physician Group Comment on above:Result Comment: Random Glucose Reference Range is dependent on time and content of last meal. Glucose of more than 200 mg/dL in a nonstressed, ambulatory subject supports the diagnosis of Diabetes Mellitus.Performed By: #### GLULS ####Point of Care testing,ISTAT Glucose Pocon 93-09-6844Mavfrro [Mass/Vol]100 mg/bMVgfhfq98-157Izj [place] Physician GroupComment on above: Result Comment: PERFORMED BY:[address] [place], [place] [phone] MEDICAL JACKELYN VÁZQUEZ M.D.Performed By: #### ISGLU ####Point of Care testing,Glucose [Mass/Vol]95 mg/iQNxellq12-384Cmx [facility] Physician GroupComment on above:Result Comment: PERFORMED BY:[address] [place], [place] [phone] MEDICAL JACKELYN VÁZQUEZ M.D.Performed By: #### ISGLU ####Point of Care testing,Glucose [Mass/Vol]99 mg/tUVjzjpw17-971Czd [facility] Physician GroupComment on above:Result Comment: PERFORMED BY:[address] RICKETTSRadhaHUILOMAX, [place] [phone] MEDICAL JACKELYN VÁZQUEZ M.D.Performed By: #### ISGLU ####Point of Care testing,[place] 74-16-4042NXxynvmDfg [facility] Physician [facility] HospitalPathologist Slide Reviewon 94-77-0068Oswdthanofy Slide ReviewOrdered Path ReviewNoNovant Health Rehabilitation Hospital Physician GroupComment on above:Result Comment: PERFORMED BY:[address] [place], [place] [phone] MEDICAL JACKELYN VÁZQUEZ M.D.Performed By: #### PATH SLIDE REV, DIFF CBC ####[address] [address] [place] Vancomycin,Randomon 60-91-3691Gxsqhevkxm,Gsdhic83.6High5.0-20.0The [facility] Physician GroupComment on above:Order Comment: Date of last dose?: 20241105 Time of last dose?: 2300Result Comment: Last dose: -PERFORMED BY:[address] RICKETTSRadhaHUILOMAX, [place] [phone] BUD VÁZQUEZ M.D.Performed By: #### VANCR ####[address] [address] USAXR chest 1V portableon 15-17-3490IX chest 1V portableNoNovant Health Rehabilitation Hospital Physician [facility] HospitalArterial Blood Gason 00-73-5970ICD Base Excess-5.4 mmol/LLow-3.0-3.0The [facility] Physician GroupComment on above:Performed By: #### ABG ####Point of Care testing,ABG Frac Inspired O230 %NormalThe [facility] Physician GroupComment on above:Performed By: #### ABG ####Point of Care testing,ABG Oxygen Content6.1 mmol/LLow6.6-9.7The [facility] Physician GroupComment on above:Performed By: #### ABG ####Point of Care testing,ABG Oxygen Ucmnojmxem42.1 %Nomszr06.0-100.0The [facility] Physician GroupComment on above:Performed By: #### ABG ####Point of Care testing,ABG PCO2 33.3 mm[Hg]Low35.0-45.0The [facility] Physician GroupComment on above:Performed By: #### ABG ####Point of Care testing,ABG YRRC7IgkhcpJwf [facility] Physician GroupComment on above:Performed By: #### ABG ####Point of Care testing,ABG PH 7.72Sjiaqa7.35-7.45The [facility] Physician GroupComment on above:Performed By: #### ABG ####Point of Care testing,ABG PL7450.8 mm[Hg]High80.0-100.0The [facility] Physician GroupComment on above:Performed By: #### ABG ####Point of Care testing,ABG TV450 mLNormalThe [facility] Physician GroupComment on above: Performed By: #### ABG ####Point of Care testing,CO2 [Moles/Vol]20.1 mmol/LLow 23.0-27.0The [facility] Physician GroupComment on above:Performed By: #### ABG ####Point of Care testing,HCO3 (Bld) [Moles/Vol]19.0 mmol/LLow23.0-29.0The [facility] Physician GroupComment on above:Performed By: #### ABG ####Point of Care testing,Respiratory CriticalNormCleveland Clinic [facility] Hospital Physician GroupComment on above:Result Comment: Critical Value called on: 11/07/2024 at 17:37PERFORMED BY:[address] [address] [address] [place], [place] [phone] MEDICAL DIRECTORMARJORGE S KATHIE M.D.Performed By: #### ABG ####Point of Care testing,Set Respiratory Ptfx12GwbdkdSymNemours Children's Clinic Hospital Physician GroupComment on above:Performed By: #### ABG ####Point of Care testing,VBG Draw SiteArtlineNemours Children's Clinic Hospital Physician GroupComment on above: Performed By: #### ABG ####Point of Care testing,Ventilator ModeACNoNovant Health Rehabilitation Hospital Physician GroupComment on above:Performed By: #### ABG ####Point of Care testing,ABG Base Excess-5.7 mmol/LLow-3.0-3.0[facility] Comment on above:Performed By: #### ABG ####Point of Care testing,ABG Frac Inspired O230 %NormalAdventhealth Central Pasco Er Physician GroupComment on above:Performed By: #### ABG ####Point of Care testing,ABG Oxygen Content5.9 mmol/LLow6.6-9.7The [facility] Physician GroupComment on above:Performed By: #### ABG ####Point of Care testing,ABG Oxygen Vevwqodrwb59.5 %Qdrepo88.0-100.0[facility] Physician GroupComment on above:Performed By: #### ABG ####Point of Care testing,ABG PCO2 31.8 mm[Hg]Low35.0-45.0[facility] Physician GroupComment on above:Performed By: #### ABG ####Point of Care testing,ABG IVQU5BxyrcuTkkNemours Children's Clinic Hospital Physician GroupComment on above:Performed By: #### ABG ####Point of Care testing,ABG PH 7.70Sssrsj6.35-7.45[facility] Physician GroupComment on above:Performed By: #### ABG ####Point of Care testing,ABG PO289.4 mm[Hg]Ikrcur36.0-100.0[facility] Physician GroupComment on above:Performed By: #### ABG ####Point of Care testing,ABG TV450 mLNormalThe [facility] Physician GroupComment on above: Performed By: #### ABG ####Point of Care testing,CO2 [Moles/Vol]19.5 mmol/LLow 23.0-27.0The [facility] Physician GroupComment on above:Performed By: #### ABG ####Point of Care testing,HCO3 (Bld) [Moles/Vol]18.5 mmol/LLow23.0-29.0The [facility] Physician GroupComment on above:Performed By: #### ABG ####Point of Care testing,Respiratory CriticalNoNovant Health Rehabilitation Hospital Physician GroupComment on above:Result Comment: Critical Value called on: 11/07/2024 at 12:06PERFORMED BY:[facility] [place], [place] [phone] MEDICAL DIRECTORCARLOS VÁZQUEZ M.D.Performed By: #### ABG ####Point of Care testing,Set Respiratory Ipyy06MvoayqEmn[address] [place] [address] Physician GroupComment on above:Performed By: #### ABG ####Point of Care testing,VBG Draw SiteArtlineNemours Children's Clinic Hospital Physician GroupComment on above: Performed By: #### ABG ####Point of Care testing,ABG Base Excess-7.0 mmol/LLow -3.0-3.0The [facility] Physician GroupComment on above:Performed By: #### ABG ####Point of Care testing,ABG Frac Inspired O230 %NormalThe [facility] Physician GroupComment on above:Performed By: #### ABG ####Point of Care testing,ABG Oxygen Content6.4 mmol/LLow6.6-9.7The [facility] Physician GroupComment on above: Performed By: #### ABG ####Point of Care testing,ABG Oxygen Mmcwukmgkb69.0 % Fkacta87.0-100.0The [facility] Physician GroupComment on above:Performed By: #### ABG ####Point of Care testing,ABG NXF527.0 mm[Hg]Low35.0-45.0The [facility] Physician GroupComment on above:Performed By: #### ABG ####Point of Care testing,ABG UMEH3KvymwwHufNovant Health Rehabilitation Hospital Physician GroupComment on above:Performed By: #### ABG ####Point of Care testing,ABG PH7.79Yklhit2.35-7.45The [facility] Physician GroupComment on above:Performed By: #### ABG ####Point of Care testing,ABG PO295.5 mm[Hg]Pqcoub03.0-100.0The [facility] Physician GroupComment on above:Performed By: #### ABG ####Point of Care testing,ABG TV450 mLNormalThe [facility] Physician GroupComment on above:Performed By: #### ABG ####Point of Care testing,CO2 [Moles/Vol]18.1 mmol/LLow23.0-27.0The [facility] Comment on above:Performed By: #### ABG ####Point of Care testing,HCO3 (Bld) [Moles/Vol]17.2 mmol/LLow23.0-29.0The [facility] Physician GroupComment on above: Performed By: #### ABG ####Point of Care testing,Respiratory CriticalNoNovant Health Rehabilitation Hospital Physician GroupComment on above:Result Comment: Critical Value called on: 11/07/2024 at 05:09PERFORMED BY:[facility] [place], [place] [phone] MEDICAL DIRECTORCARLOS VÁZQUEZ M.D.Performed By: #### ABG ####Point of Care testing,Set Respiratory Rate12 NormalThe [facility] Physician GroupComment on above:Performed By: #### ABG ####Point of Care testing,VBG Draw SiteArtlineNoNovant Health Rehabilitation Hospital Physician GroupComment on above:Performed By: #### ABG ####Point of Care testing,ABG Base Excess-5.9 mmol/LLow-3.0-3.0The [facility] Physician GroupComment on above: Performed By: #### ABG ####Point of Care testing,ABG Frac Inspired O230 %Normal The [facility] Physician GroupComment on above:Performed By: #### ABG ####Point of Care testing,ABG Oxygen Content6.8 mmol/LNormal6.6-9.7The [facility] Physician GroupComment on above:Performed By: #### ABG ####Point of Care testing,ABG Oxygen Kkcydowccx80.5 %Uihfyz07.0-100.0The [facility] Physician GroupComment on above:Performed By: #### ABG ####Point of Care testing,ABG EPK171.7 mm[Hg]Off scale low35.0-45.0The [facility] Physician GroupComment on above:Performed By: #### ABG ####Point of Care testing,ABG XZHD8QjzyywDseCleveland Clinic [facility] Hospital Physician Group Comment on above:Performed By: #### ABG ####Point of Care testing,ABG PH7.42 Normal7.35-7.45The [facility] Physician GroupComment on above:Performed By: #### ABG ####Point of Care testing,ABG NB1550.0 mm[Hg]High80.0-100.0The [facility] Physician GroupComment on above:Performed By: #### ABG ####Point of Care testing,ABG TV450 mLNormalThe [facility] Physician GroupComment on above: Performed By: #### ABG ####Point of Care testing,CO2 [Moles/Vol]18.3 mmol/LLow 23.0-27.0The [facility] Physician GroupComment on above:Performed By: #### ABG ####Point of Care testing,HCO3 (Bld) [Moles/Vol]17.4 mmol/LLow23.0-29.0The [facility] Physician GroupComment on above:Performed By: #### ABG ####Point of Care testing,Respiratory CriticalNormCleveland Clinic [facility] Hospital Physician GroupComment on above:Result Comment: Critical Value called on: 11/07/2024 at 00:37PERFORMED BY:[address] [address] [address] [place], [place] [phone] MEDICAL DIRECTORCARLOS VÁZQUEZ M.D.Performed By: #### ABG ####Point of Care testing,Set Respiratory Eqdi90PpxfurYahFirelands Regional Medical CenterComment on above:Performed By: #### ABG ####Point of Care testing,VBG Draw SiteArtlineCambridge Medical CenterComment on above: Performed By: #### ABG ####Point of Care testing,Ventilator ModeACNoFirelands Regional Medical CenterComment on above:Performed By: #### ABG ####Point of Care testing,Comprehensive Metabolic Panelon 55-16-4374Qvtkajj [Mass/Vol]2.4 g/dLLow3.5-5.7The [facility] Taylor HospitalComment on above:Performed By: #### CMP, HEPATIC, TRIG, DIFF CBC ####[address] [address] USAAlbumin/Globulin [Mass ratio]1.2 {ratio}NormalThe [facility] HospitalComment on above:Performed By: #### CMP, HEPATIC, TRIG, DIFF CBC ####[address] [address] USAALP [Catalytic activity/Vol]156 U/SRqal99-033AiuOch Regional Medical Center Comment on above:Performed By: #### CMP, HEPATIC, TRIG, DIFF CBC ####[address] [address] USAALT [Catalytic activity/Vol]917 U/LHigh7-52Och Regional Medical CenterComment on above: Performed By: #### CMP, HEPATIC, TRIG, DIFF CBC ####[address] [address] USAAnion gap [Moles/Vol]15.6 mmol/LHigh 6.0-15.0The [facility] HospitalComment on above:Performed By: #### CMP, HEPATIC, TRIG, DIFF CBC ####[address] [address] USAAST [Catalytic activity/Vol]661 U/YHrhy07-14Gee [facility] HospitalComment on above:Performed By: #### CMP, HEPATIC, TRIG, DIFF CBC ####[address] [address] [place] Bilirubin [Mass/Vol]0.7 mg/dLNormal0.3-1.0The [facility] Physician GroupComment on above:Performed By: #### CMP, HEPATIC, TRIG, DIFF CBC ####[place] [address] USACalcium [Mass/Vol]8.0 mg/dLLow 8.6-10.3The [facility] Physician GroupComment on above:Performed By: #### CMP, HEPATIC, TRIG, DIFF CBC ####[place] [address] USAChloride [Moles/Vol]109 mmol/SLcsd87-617Xiq [facility] Physician GroupComment on above:Performed By: #### CMP, HEPATIC, TRIG, DIFF CBC ####[place] [address] USACO2 [Moles/Vol]18.8 mmol/LLow21.0-31.0The [facility] Physician GroupComment on above: Performed By: #### CMP, HEPATIC, TRIG, DIFF CBC ####[place] [address] USACreatinine [Mass/Vol]2.93 mg/dL Significant change down0.60-1.20The [facility] Physician GroupComment on above: Performed By: #### CMP, HEPATIC, TRIG, DIFF CBC ####[place] [address] USACreatinine Clr Calc Zvbnpswp17.44 NormalThe Atrium Health Physician GroupComment on above:Performed By: #### CMP, HEPATIC, TRIG, DIFF CBC ####[place] [address] USAGFR/1.73 sq M.predicted MDRD (S/P/Bld) [Vol rate/Area] 16.273 mL/min/{1.73_m2}NormalThe Atrium Health Physician GroupComment on above: Performed By: #### CMP, HEPATIC, TRIG, DIFF CBC ####[place] [address] USAGlobulin (S) [Mass/Vol]2.0 g/dLNormal The [facility] Health Physician GroupComment on above:Performed By: #### CMP, HEPATIC, TRIG, DIFF CBC ####[place] [id number] USAGlucose [Mass/Vol]101 mg/oQBgsn60-998Gpx [facility] Comment on above:Result Comment: Random Glucose Reference Range is dependent on time and content of last meal. Glucose of more than 200 mg/dL in a nonstressed, ambulatory subject supports the diagnosis of Diabetes Mellitus. ADA recommended reference rangePerformed By: #### CMP, HEPATIC, TRIG, DIFF CBC ####[place] [address] USAPotassium [Moles/Vol] 3.4 mmol/LLow3.5-5.1The [facility] Health Physician GroupComment on above:Performed By: #### CMP, HEPATIC, TRIG, DIFF CBC ####[place] [id number] USAProtein [Mass/Vol]4.4 g/dLLow6.4-8.9The [facility] Health Physician GroupComment on above:Performed By: #### CMP, HEPATIC, TRIG, DIFF CBC ####[place] [id number] USASodium [Moles/Vol]140 mmol/MXxnqrw605-185Mjy [facility] Physician GroupComment on above: Performed By: #### CMP, HEPATIC, TRIG, DIFF CBC ####[place] [id number] USAUrea nitrogen [Mass/Vol]51 mg/dLHigh 7-25The [facility] Health Physician GroupComment on above:Performed By: #### CMP, HEPATIC, TRIG, DIFF CBC ####[address] [address] USADiff and CBCon 85-37-2744Lvdnepnxmnat Ql (Bld)Moderate NormalThe Atrium Health Physician GroupComment on above:Performed By: #### CMP, HEPATIC, TRIG, DIFF CBC ####[place] [id number] USABand form neutrophils/100 WBC (Bld)6 %High0-5The [facility] Health Physician GroupComment on above:Performed By: #### CMP, HEPATIC, TRIG, DIFF CBC ####[place] [address] [place] Erythrocyte distribution width (RBC) [Ratio]16.6 %High11.9-15.3The [facility] Health Physician GroupComment on above:Performed By: #### CMP, HEPATIC, TRIG, DIFF CBC ####[place] [address] USAGiant Platelet Tally1 /100{WBC}NormalThe Atrium Health Physician GroupComment on above: Performed By: #### CMP, HEPATIC, TRIG, DIFF CBC ####[place] [address] USAHematocrit (Bld) [Volume fraction]30.4 %Low34.0-46.4The [facility] Health Physician GroupComment on above:Performed By: #### CMP, HEPATIC, TRIG, DIFF CBC ####[place] [address] USAHemoglobin (Bld) [Mass/Vol]10.1 g/dLLow11.8-15.4The [facility] Health Physician GroupComment on above:Performed By: #### CMP, HEPATIC, TRIG, DIFF CBC ####[place] [address] USAHypochromasiaMarkedNemours Children's Clinic Hospital Physician GroupComment on above: Performed By: #### CMP, HEPATIC, TRIG, DIFF CBC ####[place] [address] USALymphocytes/100 WBC (Bld)3 %Rvs18-69 The [facility] Health Physician GroupComment on above:Performed By: #### CMP, HEPATIC, TRIG, DIFF CBC ####[place] [address] USAMacrocytosisSlightNemours Children's Clinic Hospital Physician GroupComment on above: Performed By: #### CMP, HEPATIC, TRIG, DIFF CBC ####[place] [address] USAMCH (RBC) [Entitic mass]27.7 pgNormal 24.7-34.3The [facility] Health Physician GroupComment on above:Performed By: #### CMP, HEPATIC, TRIG, DIFF CBC ####[address] [address] [facility] (RBC) [Entitic vol]83.3 xPKssvtv97-499Eiy [facility] Physician GroupComment on above:Performed By: #### CMP, HEPATIC, TRIG, DIFF CBC ####[address] [address] USAMean Corpuscular HGB Conc33.3 g/tNCbjnuh36.0-35.0The [facility] Health Physician GroupComment on above:Performed By: #### CMP, HEPATIC, TRIG, DIFF CBC ####[address] [address] USAMetamyelocytes1 %High0-0The [facility] Health Physician GroupComment on above:Performed By: #### CMP, HEPATIC, TRIG, DIFF CBC ####[address] [address] USAMonocytes/100 WBC (Bld)10 %Normal2-11The [facility] Health Physician GroupComment on above:Performed By: #### CMP, HEPATIC, TRIG, DIFF CBC ####[address] [address] USAMyelocytes2 %High0-0The [facility] Health Physician GroupComment on above:Performed By: #### CMP, HEPATIC, TRIG, DIFF CBC ####[address] [address] USANucleated Red Blood Cell1 /100{WBC}High0-0The [facility] Comment on above:Performed By: #### CMP, HEPATIC, TRIG, DIFF CBC ####[address] [address] USAPlatelet Estimate NormalNormalNormalThe [facility] Health Physician GroupComment on above:Performed By: #### CMP, HEPATIC, TRIG, DIFF CBC ####[address] [address] USAPlatelet mean volume (Bld) [Entitic vol]8.5 fLNormal 6.3-10.7The [facility] Health Physician GroupComment on above:Performed By: #### CMP, HEPATIC, TRIG, DIFF CBC ####[place] [address] USAPlatelet MorphologyNormalNormHCA Florida JFK Hospital Physician GroupComment on above:Result Comment: PERFORMED BY:[address] [place], [place] [phone] MEDICAL JACKELYN VÁZQUEZ M.D.Performed By: #### CMP, HEPATIC, TRIG, DIFF CBC ####[place] [address] [place] Platelets (Bld) [#/Vol]230 10*3/dKJzudop509-850Ect [facility] Comment on above:Performed By: #### CMP, HEPATIC, TRIG, DIFF CBC ####[place] [address] USAPoikilocytosisSlight NormalAdventhealth Central Pasco Er Physician [facility] HospitalComment on above:Performed By: #### CMP, HEPATIC, TRIG, DIFF CBC ####[place] [id number] USAPolychromasiaMarkedNemours Children's Clinic Hospital Physician [facility] Comment on above:Performed By: #### CMP, HEPATIC, TRIG, DIFF CBC ####[place] [address] USARBC (Bld) [#/Vol]3.65 10*6/uLNormal3.60-5.00The [facility] Health Physician GroupComment on above:Performed By: #### CMP, HEPATIC, TRIG, DIFF CBC ####[place] [id number] USARouleauxSlightNoNovant Health Rehabilitation Hospital Physician [facility] HospitalComment on above:Performed By: #### CMP, HEPATIC, TRIG, DIFF CBC ####[place] [address] [place] Segmented neutrophils/100 WBC (Bld)78 %Nemj22-80Orq [facility] Comment on above:Performed By: #### CMP, HEPATIC, TRIG, DIFF CBC ####[place] [address] USAWBC (Bld) [#/Vol]9.6 10*3/uLNormal3.8-11.6The [facility] Health Physician GroupComment on above:Performed By: #### CMP, HEPATIC, TRIG, DIFF CBC ####[place] [address] USAWhite Blood Count9.6 [CFU]/mLNormal3.8-11.6The [facility] Health Physician GroupComment on above:Performed By: #### CMP, HEPATIC, TRIG, DIFF CBC ####[place] [address] USAHepatic Panelon 35-49-9545Bxaewxsrw,Indirect0.3 mg/dLNormalThe Atrium Health Physician GroupComment on above:Performed By: #### CMP, HEPATIC, TRIG, DIFF CBC ####[address] Bilirubin.indirect [Mass/Vol]0.40 mg/dLHigh0.03-0.18The [facility] Health Physician GroupComment on above:Performed By: #### CMP, HEPATIC, TRIG, DIFF CBC ####[place] [address] USAISTAT Glucose Pocon 71-46-4941Ovebzub [Mass/Vol]100 mg/rICbhjyp88-337Tgm [facility] Physician GroupComment on above:Result Comment: PERFORMED BY:[place] [address] [address] [place], [place] [phone] MEDICAL DIRECTORCARLOS VÁZQUEZ M.D.Performed By: #### ISGLU ####Point of Care testing, Glucose [Mass/Vol]93 mg/iRByglqo50-069Pre [facility] Physician GroupComment on above:Result Comment: PERFORMED BY:[place] [address] [address] [place], [place] [phone] MEDICAL JACKELYN VÁZQUEZ M.D.Performed By: #### ISGLU ####Point of Care testing,Glucose [Mass/Vol]94 mg/jQWouuoa01-719Wzt [facility] Physician GroupComment on above:Result Comment: PERFORMED BY:[address] [place]ARTINEZSTAR [place], [place] [phone] BUD VÁZQUEZ M.D.Performed By: #### ISGLU ####Point of Care testing,Triglycerideson 31-54-7212Jqxdzpybrwfi [Mass/Vol]317 mg/aSBxmp00-072Lhe [facility] Physician GroupComment on above: Result Comment: TRIG ATP III CLASSIFICATION TRIG less than 150 mg/dL Normal TRIG 150-199 mg/dL Borderline high TRIG 200-500 mg/dL High TRIG greater than 500 mg/dL Very high Standard traceable to the Center for Disease Conrtrol and Prevention (CDC) test method.PERFORMED BY:[address] [place], [place] [phone] MEDICAL JACKELYN VÁZQUEZ M.D.Performed By: #### CMP, HEPATIC, TRIG, DIFF CBC ####[address] [address] USAVancomycin,Randomon 66-81-5930Sikjknqnee,Vtcaur14.3High5.0-20.0The [facility] Health Physician GroupComment on above:Order Comment: Date of last dose?: 20241105 Time of last dose?: 2329 Result Comment: Last dose: -PERFORMED BY:[address] MARTINEZSTAR [place], [place] [phone] BUD VÁZQUEZ M.D.Performed By: #### VANCR ####[address] [address] USAXR chest 1V portableon 04-05-3107ZJ chest 1V portableNormalThe Atrium Health Physician GroupArterial Blood Gason 43-30-4267IZR Base Excess-8.5 mmol/LLow-3.0-3.0The [facility] Health Physician GroupComment on above: Performed By: #### ABG ####Point of Care testing,ABG Frac Inspired O230%Normal The [facility] Health Physician GroupComment on above:Performed By: #### ABG ####Point of Care testing,ABG Oxygen Content6.6 mmol/LNormal6.6-9.7The [facility] Health Physician GroupComment on above:Performed By: #### ABG ####Point of Care testing,ABG Oxygen Exvnhlqqvu11.5 %Vnkgmm71.0-100.0The [facility] Physician GroupComment on above:Performed By: #### ABG ####Point of Care testing,ABG KDU924.4 mm[Hg]Off scale low35.0-45.0The [facility] Physician GroupComment on above:Performed By: #### ABG ####Point of Care testing,ABG NPJO3ZdyczuDajCleveland Clinic [facility] Hospital Physician Group Comment on above:Performed By: #### ABG ####Point of Care testing,ABG PH7.42 Normal7.35-7.45The [facility] Physician GroupComment on above:Performed By: #### ABG ####Point of Care testing,ABG MH5311.7 mm[Hg]High80.0-100.0The [facility] Physician GroupComment on above:Performed By: #### ABG ####Point of Care testing,ABG TV450 mLNormalThe [facility] Health Physician GroupComment on above: Performed By: #### ABG ####Point of Care testing,CO2 [Moles/Vol]15.0 mmol/LLow 23.0-27.0The [facility] Health Physician GroupComment on above:Performed By: #### ABG ####Point of Care testing,HCO3 (Bld) [Moles/Vol]14.3 mmol/LLow23.0-29.0The [facility] Physician GroupComment on above:Performed By: #### ABG ####Point of Care testing,Respiratory CriticalNormCleveland Clinic Martin South Hospital Physician GroupComment on above:Result Comment: Critical Value called on: 11/06/2024 at 18:12PERFORMED BY:[place] [address] [address] [place], [place] [phone] MEDICAL DIRECTORCARLOS VÁZQUEZ M.D.Performed By: #### ABG ####Point of Care testing,Set Respiratory Iawx73DwwkuqPamCambridge Medical CenterComment on above:Performed By: #### ABG ####Point of Care testing,VBG Draw SiteArtlineSt. Mary's Regional Medical Center GroupComment on above: Performed By: #### ABG ####Point of Care testing,ABG Base Excess-7.3 mmol/LLow -3.0-3.0The [facility] Physician GroupComment on above:Performed By: #### ABG ####Point of Care testing,ABG Frac Inspired O230 %NormalThe [facility] Health Physician GroupComment on above:Performed By: #### ABG ####Point of Care testing,ABG Oxygen Content6.5 mmol/LLow6.6-9.7The [facility] Physician GroupComment on above: Performed By: #### ABG ####Point of Care testing,ABG Oxygen Kqfpdwdbng40.3 % Gpajeq89.0-100.0The [facility] Physician [facility] HospitalComment on above:Performed By: #### ABG ####Point of Care testing,ABG EQI200.3 mm[Hg]Off scale low35.0-45.0The [facility] Physician GroupComment on above:Performed By: #### ABG ####Point of Care testing,ABG WTAA6WyzvfiEqiNemours Children's Clinic Hospital Physician [facility] HospitalComment on above: Performed By: #### ABG ####Point of Care testing,ABG PH7.07Cvuiqv0.35-7.45[facility] Physician [facility] HospitalComment on above:Performed By: #### ABG ####Point of Care testing,ABG VE5256.4 mm[Hg]High80.0-100.0The [facility] Comment on above:Performed By: #### ABG ####Point of Care testing,ABG TV450 mL NormalThe [facility] Health Physician GroupComment on above:Performed By: #### ABG ####Point of Care testing,CO2 [Moles/Vol]16.1 mmol/LLow23.0-27.0The [facility] Health Physician GroupComment on above:Performed By: #### ABG ####Point of Care testing,HCO3 (Bld) [Moles/Vol]15.4 mmol/LLow23.0-29.0The [facility] Physician GroupComment on above:Performed By: #### ABG ####Point of Care testing, Respiratory CriticalNoNovant Health Rehabilitation Hospital Physician GroupComment on above:Result Comment: Critical Value called on: 11/06/2024 at 12:25PERFORMED BY:[facility] [place], [place] [phone] MEDICAL DIRECTORCARLOS VÁZQUEZ M.D.Performed By: #### ABG ####Point of Care testing,Set Respiratory Sbuu35VhbeaxMmaNovant Health Rehabilitation Hospital Physician GroupComment on above:Performed By: #### ABG ####Point of Care testing,VBG Draw SiteArtline NormalThe [facility] Physician GroupComment on above:Performed By: #### ABG ####Point of Care testing,Ventilator ModeACNoNovant Health Rehabilitation Hospital Physician Group Comment on above:Performed By: #### ABG ####Point of Care testing,ABG Base Excess-4.9 mmol/LLow-3.0-3.0The [facility] Physician GroupComment on above: Performed By: #### ABG ####Point of Care testing,ABG Frac Inspired O240 %Normal The [facility] Physician GroupComment on above:Performed By: #### ABG ####Point of Care testing,ABG Oxygen Content7.4 mmol/LNormal6.6-9.7The [facility] Physician GroupComment on above:Performed By: #### ABG ####Point of Care testing,ABG Oxygen Uvdxvaqkci05.6 %Codokb17.0-100.0The [facility] Physician GroupComment on above:Performed By: #### ABG ####Point of Care testing,ABG PPD387.8 mm[Hg]Off scale low35.0-45.0The [facility] Physician GroupComment on above:Performed By: #### ABG ####Point of Care testing,ABG GKAY8MhmvyfBrrNovant Health Rehabilitation Hospital Physician [facility] Comment on above:Performed By: #### ABG ####Point of Care testing,ABG PH7.44 Normal7.35-7.45The [facility] Physician GroupComment on above:Performed By: #### ABG ####Point of Care testing,ABG WX0089.0 mm[Hg]Off scale high80.0-100.0The [facility] Physician GroupComment on above:Performed By: #### ABG ####Point of Care testing,ABG TV450 mLNormalThe [facility] Physician GroupComment on above: Performed By: #### ABG ####Point of Care testing,CO2 [Moles/Vol]18.7 mmol/LLow 23.0-27.0The [facility] Physician GroupComment on above:Performed By: #### ABG ####Point of Care testing,HCO3 (Bld) [Moles/Vol]17.9 mmol/LLow23.0-29.0The [facility] Physician GroupComment on above:Performed By: #### ABG ####Point of Care testing,Respiratory CriticalNoNovant Health Rehabilitation Hospital Physician GroupComment on above:Result Comment: Critical Value called on: 11/06/2024 at 06:12PERFORMED BY:[facility] [place], [place] [phone] MEDICAL DIRECTORCARLOS VÁZQUEZ M.D.Performed By: #### ABG ####Point of Care testing,Set Respiratory Kcmb52TdwnqcQipNovant Health Rehabilitation Hospital Physician GroupComment on above:Performed By: #### ABG ####Point of Care testing,VBG Draw SiteArtlineNemours Children's Clinic Hospital Physician GroupComment on above: Performed By: #### ABG ####Point of Care testing,Ventilator ModeACNoNovant Health Rehabilitation Hospital Physician GroupComment on above:Performed By: #### ABG ####Point of Care testing,ABG Base Excess-5.4 mmol/LLow-3.0-3.0The [facility] Comment on above:Performed By: #### ABG ####Point of Care testing,ABG Oxygen Content6.9 mmol/LNormal6.6-9.7The [facility] Physician GroupComment on above: Performed By: #### ABG ####Point of Care testing,ABG Oxygen Sbveqzbapm93.0 % Wdqblw12.0-100.0The [facility] Physician GroupComment on above:Performed By: #### ABG ####Point of Care testing,ABG SBM356.1 mm[Hg]Off scale low35.0-45.0The [facility] Physician GroupComment on above:Performed By: #### ABG ####Point of Care testing,ABG PH7.12Btfdlm7.35-7.45The [facility] Physician GroupComment on above:Performed By: #### ABG ####Point of Care testing,ABG ZB4658.3 mm[Hg]Off scale high80.0-100.0The [facility] Physician GroupComment on above:Performed By: #### ABG ####Point of Care testing,ABG TV400 mLNormalThe [facility] Physician GroupComment on above:Performed By: #### ABG ####Point of Care testing,CO2 [Moles/Vol]17.9 mmol/LLow23.0-27.0The [facility] Physician GroupComment on above: Performed By: #### ABG ####Point of Care testing,HCO3 (Bld) [Moles/Vol]17.2 mmol/LLow23.0-29.0The [facility] Physician GroupComment on above:Performed By: #### ABG ####Point of Care testing,Comprehensive Metabolic Panelon 11-06-2024 Albumin [Mass/Vol]2.6 g/dLLow3.5-5.7The [facility] Physician GroupComment on above:Performed By: #### CMP, DIFF CBC ####[facility] [address] [place] [address] USAAlbumin/Globulin [Mass ratio]1.2 {ratio}Normal The [facility] Physician GroupComment on above:Performed By: #### CMP, DIFF CBC ####[place] [address] USAALP [Catalytic activity/Vol]185 U/NXfsq07-943Ldg [facility] Physician GroupComment on above:Performed By: #### CMP, DIFF CBC ####[address] [address] USAALT [Catalytic activity/Vol]1419 U/LHigh7-52 The [facility] Physician GroupComment on above:Performed By: #### CMP, DIFF CBC ####[place] [id number] USAAnion gap [Moles/Vol]13.5 mmol/LNormal6.0-15.0The [facility] Physician GroupComment on above:Performed By: #### CMP, DIFF CBC ####[place] [address] USAAST [Catalytic activity/Vol]1912 U/IQnsh88-85 The [facility] Physician GroupComment on above:Performed By: #### CMP, DIFF CBC ####[place] [address] [place] Bilirubin [Mass/Vol]1.0 mg/dLNormal0.3-1.0The [facility] Physician GroupComment on above:Performed By: #### CMP, DIFF CBC ####[place] [address] USACalcium [Mass/Vol]7.9 mg/dLLow8.6-10.3The [facility] Physician GroupComment on above:Performed By: #### CMP, DIFF CBC ####[place] [address] [place] Chloride [Moles/Vol]112 mmol/MLmlg34-729Rqg [facility] Physician GroupComment on above:Performed By: #### CMP, DIFF CBC ####[address] [address] USACO2 [Moles/Vol]19.1 mmol/LLow21.0-31.0The [facility] Physician GroupComment on above:Performed By: #### CMP, DIFF CBC ####[address] [address] [facility] Creatinine [Mass/Vol]2.09 mg/dLSignificant change down0.60-1.20The [facility] Physician GroupComment on above:Performed By: #### CMP, DIFF CBC ####[place] [address] USACreatinine Clr Calc Vuvtstqy22.61NoNovant Health Rehabilitation Hospital Physician GroupComment on above:Result Comment: PERFORMED BY:[address]ETS[place], [place] [phone] MEDICAL JACKELYN VÁZQUEZ M.D.Performed By: #### CMP, DIFF CBC ####[place] [id number] USAGFR/1.73 sq M.predicted MDRD (S/P/Bld) [Vol rate/Area]24.408 mL/min/{1.73_m2}NormalThe [facility] Physician GroupComment on above:Performed By: #### CMP, DIFF CBC ####[place] [address] USAGlobulin (S) [Mass/Vol]2.1 g/dLNoNovant Health Rehabilitation Hospital Physician [facility] HospitalComment on above:Performed By: #### CMP, DIFF CBC ####[place] [address] USAGlucose [Mass/Vol]107 mg/eYDebv44-908Tyr [facility] Physician GroupComment on above:Result Comment: Random Glucose Reference Range is dependent on time and content of last meal. Glucose of more than 200 mg/dL in a nonstressed, ambulatory subject supports the diagnosis of Diabetes Mellitus. ADA recommended reference rangePerformed By: #### CMP, DIFF CBC ####[place] [address] USAPotassium [Moles/Vol]3.6 mmol/LNormal3.5-5.1The [facility] Physician GroupComment on above:Performed By: #### CMP, DIFF CBC ####[place] [address] USAProtein [Mass/Vol]4.7 g/dLLow 6.4-8.9The [facility] Physician GroupComment on above:Performed By: #### CMP, DIFF CBC ####[address] [address] USASodium [Moles/Vol]141 mmol/LHsriwx137-744Tra [facility] Physician GroupComment on above:Performed By: #### CMP, DIFF CBC ####[address] [address] USAUrea nitrogen [Mass/Vol]43 mg/dLHigh 7-25The [facility] Physician GroupComment on above:Performed By: #### CMP, DIFF CBC ####[place] [address] [facility] Creatinine, Urine (Random)on 82-64-3696Mczirpyygh, Urine (Random)88.00 mg/dL NormalThe [facility] Physician GroupComment on above:Result Comment: No reference range establishedPERFORMED BY:[address] [place], [place] [phone] MEDICAL DIRECTORCARLOS VÁZQUEZ M.D.Performed By: #### UCREA ####[address] [address] USADiff and CBCon 57-40-3075Nckgigdgzxgf Ql (Bld)Slight NormalThe [facility] Physician GroupComment on above:Performed By: #### CMP, DIFF CBC ####[place] [id number] [place] Band form neutrophils/100 WBC (Bld)8 %High0-5The [facility] Comment on above:Performed By: #### CMP, DIFF CBC ####[address] [address] USAErythrocyte distribution width (RBC) [Ratio]16.8 %High11.9-15.3The [facility] Physician GroupComment on above: Performed By: #### CMP, DIFF CBC ####[address] [address] USAHematocrit (Bld) [Volume fraction]33.6 %Low34.0-46.4 The [facility] Physician GroupComment on above:Performed By: #### CMP, DIFF CBC ####[address] [address] [place] Hemoglobin (Bld) [Mass/Vol]11.2 g/dLLow11.8-15.4The [facility] Comment on above:Performed By: #### CMP, DIFF CBC ####[address] [address] USAHypochromasiaSlightNoNovant Health Rehabilitation Hospital Physician GroupComment on above:Performed By: #### CMP, DIFF CBC ####[address] [address] [place] Lymphocytes/100 WBC (Bld)5 %Tzg15-39Olf [facility] Physician GroupComment on above:Performed By: #### CMP, DIFF CBC ####[address] [address] USAMCH (RBC) [Entitic mass]27.7 psGubrza36.7-34.3 The [facility] Physician GroupComment on above:Performed By: #### CMP, DIFF CBC ####[address] [address] USAMCV (RBC) [Entitic vol]83.0 uNRwungp64-918Wig [facility] Physician GroupComment on above:Performed By: #### CMP, DIFF CBC ####[place] [id number] USAMean Corpuscular HGB Conc33.3 g/dLNormal 32.0-35.0The [facility] Physician GroupComment on above:Performed By: #### CMP, DIFF CBC ####[address] [address] USAMonocytes/100 WBC (Bld)4 %Normal2-11The [facility] Physician GroupComment on above:Performed By: #### CMP, DIFF CBC ####[address] [address] USAPlatelet EstimateNormalNormalNormKindred Healthcaree [facility] Physician GroupComment on above:Performed By: #### CMP, DIFF CBC ####[address] [address] [place] Platelet mean volume (Bld) [Entitic vol]8.6 fLNormal6.3-10.7The [facility] Physician GroupComment on above:Result Comment: PERFORMED BY:[address]INE [place], [place] [phone] MEDICAL JACKELYN VÁZQUEZ M.D.Performed By: #### CMP, DIFF CBC ####[place] [id number] USAPlatelet Morphology NormalNormalNormalThe [facility] Physician GroupComment on above:Result Comment: PERFORMED BY:[address] [place], [place] [phone] MEDICAL JACKELYN VÁZQUEZ M.D.Performed By: #### CMP, DIFF CBC ####[place] [address] USAPlatelets (Bld) [#/Vol]277 10*3/rMYcmrpf958-611Mvt [facility] Physician GroupComment on above:Performed By: #### CMP, DIFF CBC ####[address] [address] USAPolychromasiaSlight NormalThe [facility] Physician [facility] HospitalComment on above:Performed By: #### CMP, DIFF CBC ####[place] [id number] [place] Promyelocytes1 %High0-0The [facility] Physician GroupComment on above:Performed By: #### CMP, DIFF CBC ####[place] [address] USARBC (Bld) [#/Vol]4.04 10*6/uLNormal3.60-5.00The [facility] Physician GroupComment on above:Performed By: #### CMP, DIFF CBC ####[place] [id number] [place] Segmented neutrophils/100 WBC (Bld)83 %Rlsk97-87Rfg [facility] Comment on above:Performed By: #### CMP, DIFF CBC ####[address] [address] USAWBC (Bld) [#/Vol]9.0 10*3/uLNormal 3.8-11.6The [facility] Physician GroupComment on above:Performed By: #### CMP, DIFF CBC ####[address] [address] USAWhite Blood Count9.0 [CFU]/mLNormal3.8-11.6The [facility] Comment on above:Performed By: #### CMP, DIFF CBC ####[address] [address] USADipstick and Microscopicon 11-06-2024 Appearance (U)Slightly cloudyCritically abnormalClearThe Atrium Health Physician GroupComment on above:Order Comment: Name Collection Type:: Pandya Catheter Performed By: #### ADDONUAPLUS, CUU ####[address] USABacteria,Urine2+ [HPF]NormalNone SeenThe Atrium Health Physician GroupComment on above:Order Comment: Name Collection Type:: Pandya CatheterPerformed By: #### ADDONUAPLUS, CUU ####[address] USABilirubin,UrineNegativeNormalNegative The [facility] Health Physician GroupComment on above:Order Comment: Name Collection Type:: Pandya CatheterPerformed By: #### ADDONUAPLUS, CUU ####[address] USABudding Yeast,Urine4+ [HPF] NormalNone SeenThe Atrium Health Physician GroupComment on above:Order Comment: Name Collection Type:: Pandya CatheterResult Comment: PERFORMED BY:[address] [address] [address] [place], [place] [phone] MEDICAL JACKELYN VÁZQUEZ M.D.Performed By: #### ADDONUAPLUS, CUU ####[address], [place] USAColor (U)Dark-Yellow Critically abnormalYellowThe Atrium Health Physician GroupComment on above:Order Comment: Name Collection Type:: Pandya CatheterPerformed By: #### ADDONUAPLUS, CUU ####[address] [id number] [place] Glucose Ql (U)NormalNormalNormalThValor Health Physician GroupComment on above: Order Comment: Name Collection Type:: Pandya CatheterPerformed By: #### ADDONUAPLUS, CUU ####[address] [address] USAHyaline Casts,UrineNoneNormal0-8The [facility] Physician GroupComment on above:Order Comment: Name Collection Type:: Pandya CatheterPerformed By: #### ADDONUAPLUS, CUU ####[address] [address] USAKetones Ql (U)TraceNormalNegativeAdventhealth Central Pasco Er Physician GroupComment on above:Order Comment: Name Collection Type:: Pandya CatheterPerformed By: #### ADDONUAPLUS, CUU ####[address] [address] USALeukocyte esterase Test strip Ql (U)3+NormalNegativeAdventhealth Central Pasco Er Physician GroupComment on above:Order Comment: Name Collection Type:: Pandya CatheterPerformed By: #### ADDONUAPLUS, CUU ####[address] USAMucus,UrineRareNormalAdventhealth Central Pasco Er Physician GroupComment on above:Order Comment: Name Collection Type:: Pandya CatheterPerformed By: #### ADDONUAPLUS, CUU ####[address] USANitrite,UrineNegativeNormalNegativeAdventhealth Central Pasco Er Physician GroupComment on above:Order Comment: Name Collection Type:: Pandya CatheterPerformed By: #### ADDONUAPLUS, CUU ####[address] USAOccult Blood,Urine3+NormalNegativeThe At[facility] Health Physician GroupComment on above:Order Comment: Name Collection Type:: Pandya CatheterResult Comment: PERFORMED BY:[address] [address] [address] [place], [place] [phone] MEDICAL JACKELYN VÁZQUEZ M.D.Performed By: #### ADDONUAPLUS, CUU ####[address] Hinojosafirsthealth montgomery memorial hospitalkathleen, [id number] USApH (U)5.5 [pH]Normal5.0-9.0The [facility] Physician GroupComment on above:Order Comment: Name Collection Type:: Pandya CatheterPerformed By: #### ADDONUAPLUS, CUU ####[address] Hinojosafirsthealth montgomery memorial hospitalkathleenLOMAX, OHHB[address] USAProtein (U) [Mass/Vol]30 mg/dLNormal NegativeThe [facility] Health Physician GroupComment on above:Order Comment: Name Collection Type:: Pandya CatheterPerformed By: #### ADDONUAPLUS, CUU ####[address] Hinojosafirsthealth montgomery memorial hospitalkathleen, BL[address] [place] RBC,UrineInnumerableNormal0-4The [facility] Physician GroupComment on above:Order Comment: Name Collection Type:: Pandya CatheterPerformed By: #### ADDONUAPLUS, CUU ####[address] Hinojosafirsthealth montgomery memorial hospitalkathleen, [id number] [place] Specificy [place],Urine1.993Akxhos8.001-1.030The [facility] Comment on above:Order Comment: Name Collection Type:: Pandya CatheterPerformed By: #### ADDONUAPLUS, CUU ####[address] [place] Micaelafirsthealth montgomery memorial hospitalkathleen, UI[address] USASquamous Epithelial Cell,Eadxs9-4Erjxwm0-2Rxc [facility] Physician GroupComment on above:Order Comment: Name Collection Type:: Pandya CatheterPerformed By: #### ADDONUAPLUS, CUU ####[address] Micaelafirsthealth montgomery memorial hospitalkathleen, NI[address] USAUrobilinogen,UrineNormalNormalNormal [facility] Physician GroupComment on above:Order Comment: Name Collection Type:: Pandya CatheterPerformed By: #### JOSE LUIS, CUU ####[facility] [facility], [place] USAWBC CLUMP, UrineManyNormalNone SeenThe At[facility] Health Physician GroupComment on above:Order Comment: Name Collection Type:: Pandya CatheterPerformed By: #### JOSE LUIS, CUU ####[address] [facility], [place] USAWBC,Chlsb88-89Kclqlk1-1Twu [facility] Physician GroupComment on above:Order Comment: Name Collection Type:: Pandya CatheterPerformed By: #### JOSE LUIS, CUU ####[address] USADrug Screen,Urineon 11-06-2024 Amphetamine Screen,UrineNegativeNormalNegativeThe [facility] Comment on above:Performed By: #### URDS ####[address] [address] USABarbiturate Screen,UrineNegativeNormalNegative The [facility] Health Physician GroupComment on above:Performed By: #### URDS ####[address] [address] [place] Benzodiazepines Screen,UrinePositiveNormalNegativeThe [facility] Comment on above:Performed By: #### URDS ####[address] [address] USACannabinoid Screen,UrineNegativeNormalNegative The [facility] Physician GroupComment on above:Result Comment: These are unconfirmed results and should not be used for legal purposes. Drug Cut-Off Concentration: AMPH 1000 ng/mL VIRGILIO 200 ng/mL OSCAR 200 ng/mL COCM 300 ng/mL OP 300 ng/mL PCP 25 ng/mL THC 20 ng/mLPERFORMED BY:[address]CHRI[address] [place], [place] [phone] MEDICAL JACKELYN VÁZQUEZ M.D.Performed By: #### URDS ####[facility] [address] [place] [address] USACocaine Screen,UrineNegative NormalNegativeThe Atrium Health Physician GroupComment on above:Performed By: #### URDS ####[facility] Rfw[address] [place] [address] [place] Opiate Screen,UrineNegativeNormalNegativeThe At[facility] Health Physician GroupComment on above:Performed By: #### URDS ####[facility] G[address] [place] [address] USAPhencyclidine Screen,UrineNegativeNormalNegativeThe [facility] Health Physician GroupComment on above:Performed By: #### URDS ####[facility] [place] [address] USAECH echo transthoracicon 11-62-0947TCK echo transthoracicNormalThe [facility] Physician [facility] HospitalISTAT Glucose Pocon 33-52-9117Wmjzezz [Mass/Vol]91 mg/xJCswbvj37-933Yob [facility]ician [facility] HospitalComment on above:Result Comment: PERFORMED BY:[address] [address] [address] [place], [place] [phone] MEDICAL JACKELYN VÁZQUEZ M.D.Performed By: #### ISGLU ####Point of Care testing,Glucose [Mass/Vol]96 mg/mLQdiaej02-378Ivg [facility] Comment on above:Result Comment: PERFORMED BY:[address] [address] [place], [place] [phone] MEDICAL JACKELYN VÁZQUEZ M.D.Performed By: #### ISGLU ####Point of Care testing, Glucose [Mass/Vol]115 mg/gNKkli25-333Dsk [facility] Physician GroupComment on above:Result Comment: PERFORMED BY:[address] [address] [address] [place], [place] [phone] MEDICAL JACKELYN VÁZQUEZ M.D.Performed By: #### ISGLU ####Point of Care testing,Sodium, Urine (Random)on 34-57-5309Xtxmdo (U) [Moles/Vol]25 mmol/LNormalThe [facility] Comment on above:Result Comment: No reference range establishedPERFORMED BY:[address] [place], [place] [phone] MEDICAL DIRECTORCARLOS VÁZQUEZ M.D.Performed By: #### SANGEETA ####[address] [address] USAUrine Cultureon 80-16-3611Lwnreblw identified Cx Nom (U)ORGANISM: Clau albicans (O:CANALB) [facility] Count >100,000 PERFORMED BY: [address] [place] [address] PATHOLOGIST MINE BOSS CARLOS VÁZQUEZ M.D.NormalThe [facility] Physician [facility] HospitalComment on above: Performed By: #### ADDONUAPLUS, CUU ####[address] USABacteria identified Cx Nom (U)ORGANISM: Clau albicans (O:CANALB) [facility] Count >100,000 PERFORMED BY: [address] [address] PATHOLOGIST MINE BOSS CARLOS VÁZQUEZ M.D.NormalAdventhealth Central Pasco Er Physician GroupComment on above: Performed By: #### CUU ####[address] [address] USAXR chest 1V portableon 09-84-6606BE chest 1V portableNormalThe [facility] Health Physician GroupArterial Blood Gason 39-48-0572KKQ Base Excess-6.1 mmol/LLow-3.0-3.0The [facility] Physician GroupComment on above: Performed By: #### ABG ####Point of Care testing,ABG Frac Inspired O250 %Normal The [facility] Health Physician GroupComment on above:Performed By: #### ABG ####Point of Care testing,ABG Oxygen Content6.7 mmol/LNormal6.6-9.7The [facility] Physician GroupComment on above:Performed By: #### ABG ####Point of Care testing,ABG Oxygen Ijbxzsylas09.3 %Naxgdb89.0-100.0The [facility] Physician GroupComment on above:Performed By: #### ABG ####Point of Care testing,ABG PPW076.4 mm[Hg]Off scale low35.0-45.0The [facility]ician [facility] HospitalComment on above:Performed By: #### ABG ####Point of Care testing,ABG PLHX3FrlxibKdbCleveland Clinic [facility] Physician [facility] Comment on above:Performed By: #### ABG ####Point of Care testing,ABG PH7.43 Normal7.35-7.45The [facility] Physician GroupComment on above:Performed By: #### ABG ####Point of Care testing,ABG WR6710.2 mm[Hg]High80.0-100.0The [facility] Physician [facility] HospitalComment on above:Performed By: #### ABG ####Point of Care testing,ABG TV450 mLNormalThe At[facility] Health Physician GroupComment on above: Performed By: #### ABG ####Point of Care testing,CO2 [Moles/Vol]17.8 mmol/LLow 23.0-27.0The [facility] Physician GroupComment on above:Performed By: #### ABG ####Point of Care testing,HCO3 (Bld) [Moles/Vol]17.0 mmol/LLow23.0-29.0The [facility] Physician GroupComment on above:Performed By: #### ABG ####Point of Care testing,Respiratory CriticalNoNovant Health Rehabilitation Hospital Physician GroupComment on above:Result Comment: Critical Value called on: 11/06/2024 at 00:03PERFORMED BY:[address] [address] [address] [place], [place] [phone] MEDICAL JACKELYN VÁZQUEZ M.D.Performed By: #### ABG ####Point of Care testing,Result Comment: Critical Value called on: 11/05/2024 at 17:13PERFORMED BY:[address] [address] [address] [place], [place] [phone] MEDICAL DIRECTORCARLOS VÁZQUEZ M.D.Set Respiratory Angd00CcocrtWrbNovant Health Rehabilitation Hospital Physician GroupComment on above: Performed By: #### ABG ####Point of Care testing,VBG Draw SiteArtlineNemours Children's Clinic Hospital Physician GroupComment on above:Performed By: #### ABG ####Point of Care testing,Ventilator ModeACNemours Children's Clinic Hospital Physician GroupComment on above:Performed By: #### ABG ####Point of Care testing,Blood Cultureon 54-63-9465Bqswkkxj identified Cx Nom (Bld)NO GROWTH 5 DAYS PERFORMED BY: [facility] [address] [place] [address] PATHOLOGIST MINE BOSS CARLOS VÁZQUEZ M.D.NormalAdventhealth Central Pasco Er Physician GroupComment on above: Performed By: #### CUBLD ####[address] [address] USABacteria identified Cx Nom (Bld)NormalThe [facility] Physician [facility] HospitalComment on above:Performed By: #### CUBLD ####[address] [address] USAComprehensive Metabolic Panel on 35-09-2403Cazclej [Mass/Vol]2.5 g/dLLow3.5-5.7The [facility] Comment on above:Performed By: #### DIFF CBC, CMP, PT, LACTIC ####[address] [address] USAAlbumin/Globulin [Mass ratio]1.3 {ratio}NormalAdventhealth Central Pasco Er Physician [facility] HospitalComment on above: Performed By: #### DIFF CBC, CMP, PT, LACTIC ####[address] [address] USAPerformed By: #### CMP, DIFF CBC ####[address] [address] USAALP [Catalytic activity/Vol]190 U/EPvda96-348Qwa [place] Physician [facility] HospitalComment on above:Performed By: #### DIFF CBC, CMP, PT, LACTIC ####[address] [address] USAALT [Catalytic activity/Vol] 1538 U/LHigh7-52The [facility] Physician GroupComment on above:Performed By: #### DIFF CBC, CMP, PT, LACTIC ####[address] [place] [address] USAAnion gap [Moles/Vol]11.4 mmol/LNormal6.0-15.0The [facility] Physician GroupComment on above:Performed By: #### DIFF CBC, CMP, PT, LACTIC ####[address] [place] [address] [place] AST [Catalytic activity/Vol]2548 U/TZmcr37-44Tka [facility] Comment on above:Performed By: #### DIFF CBC, CMP, PT, LACTIC ####[address] [place] [address] USABilirubin [Mass/Vol] 1.9 mg/dLHigh0.3-1.0The [facility] Physician GroupComment on above:Result Comment: Samples from patients who have taken Naproxen have shown spurious elevation in Total Bilirubin levels. A metabolite of Naproxen, O- desmethylnaproxen, has been shown to interfere with the Aminah-Mark method for measuring Total Bilirubin.Performed By: #### DIFF CBC, CMP, PT, LACTIC ####[address] [place] [address] USACalcium [Mass/Vol]6.9 mg/dLLow8.6-10.3The [facility] Physician GroupComment on above: Performed By: #### DIFF CBC, CMP, PT, LACTIC ####[address] [place] [address] USAChloride [Moles/Vol]117 mmol/LHigh 98-107The [facility] Physician GroupComment on above:Performed By: #### DIFF CBC, CMP, PT, LACTIC ####[address] [place] [address] USACO2 [Moles/Vol]19.2 mmol/LLow21.0-31.0The [facility]ician [facility] Comment on above:Performed By: #### DIFF CBC, CMP, PT, LACTIC ####[address] [place] [address] USACreatinine [Mass/Vol] 1.42 mg/dLHigh0.60-1.20The [facility] Physician GroupComment on above:Performed By: #### DIFF CBC, CMP, PT, LACTIC ####[address] [place] [address] USACreatinine Clr Calc Pxipcnok47.74NormCleveland Clinic Martin South Hospital Physician GroupComment on above:Result Comment: PERFORMED BY:[address]ETSHEILAHUI, [place] [phone] MEDICAL DIRECTORCARLOS VÁZQUEZ M.D.Performed By: #### DIFF CBC, CMP, PT, LACTIC ####[address] [address] [place] GFR/1.73 sq M.predicted MDRD (S/P/Bld) [Vol rate/Area]38.812 mL/min/{1.73_m2} NormalThe [facility] Physician GroupComment on above:Performed By: #### DIFF CBC, CMP, PT, LACTIC ####[address] [address] USAGlobulin (S) [Mass/Vol]1.9 g/dLNoNovant Health Rehabilitation Hospital Physician [facility] Comment on above:Performed By: #### DIFF CBC, CMP, PT, LACTIC ####[address] [address] USAGlucose [Mass/Vol]114 mg/fCJcst31-082Wac [facility] Physician GroupComment on above:Result Comment: Random Glucose Reference Range is dependent on time and content of last meal. Glucose of more than 200 mg/dL in a nonstressed, ambulatory subject supports the diagnosis of Diabetes Mellitus. ADA recommended reference rangePerformed By: #### DIFF CBC, CMP, PT, LACTIC ####[address] [address] USAPotassium [Moles/Vol]3.6 mmol/LNormal3.5-5.1The [facility] Physician GroupComment on above:Performed By: #### DIFF CBC, CMP, PT, LACTIC ####[address] [address] [place] Protein [Mass/Vol]4.4 g/dLLow6.4-8.9The [facility] Physician GroupComment on above:Performed By: #### DIFF CBC, CMP, PT, LACTIC ####[address] [address] USASodium [Moles/Vol]144 mmol/L Vthgft496-535Wch [facility] Physician GroupComment on above:Performed By: #### DIFF CBC, CMP, PT, LACTIC ####[address] [address] USAUrea nitrogen [Mass/Vol]31 mg/dLHigh7-25The [facility] Physician GroupComment on above:Performed By: #### DIFF CBC, CMP, PT, LACTIC ####[address] [address] [place] Albumin [Mass/Vol]2.9 g/dLLow3.5-5.7The [facility] Physician GroupComment on above:Performed By: #### CMP, DIFF CBC ####[address] [address] USAALP [Catalytic activity/Vol]184 U/DBnqu16-781 The [facility] Physician GroupComment on above:Performed By: #### CMP, DIFF CBC ####[address] [address] USAALT [Catalytic activity/Vol]109 U/LHigh7-52The [facility] Physician GroupComment on above:Performed By: #### CMP, DIFF CBC ####[address] [address] USAAnion gap [Moles/Vol]15.1 mmol/LHigh6.0-15.0 The [facility] Physician GroupComment on above:Performed By: #### CMP, DIFF CBC ####[address] [address] USAAST [Catalytic activity/Vol]168 U/ORdzl85-47Bmq [facility] Physician GroupComment on above:Performed By: #### CMP, DIFF CBC ####[address] [address] USABilirubin [Mass/Vol]1.8 mg/dLHigh0.3-1.0The [facility] Physician GroupComment on above:Result Comment: Samples from patients who have taken Naproxen have shown spurious elevation in Total Bilirubin levels. A metabolite of Naproxen, O-desmethylnaproxen, has been shown to interfere with the Jendrteresaik-Grof method for measuring Total Bilirubin.Performed By: #### CMP, DIFF CBC ####[address] [address] USACalcium [Mass/Vol]7.7 mg/dLLow8.6-10.3The [facility] Comment on above:Performed By: #### CMP, DIFF CBC ####[address] [address] USAChloride [Moles/Vol]114 mmol/LHigh 98-107The [facility] Physician GroupComment on above:Performed By: #### CMP, DIFF CBC ####[address] [address] [place] CO2 [Moles/Vol]17.3 mmol/LLow21.0-31.0The [facility] Physician GroupComment on above:Performed By: #### CMP, DIFF CBC ####[address] [address] USACreatinine [Mass/Vol]1.28 mg/dLHigh0.60-1.20 The [facility] Physician GroupComment on above:Performed By: #### CMP, DIFF CBC ####[address] [address] [place] Creatinine Clr Calc Fvrqvntl01.54NormalThe [facility] Physician GroupComment on above:Result Comment: PERFORMED BY:[address] ABHISHEKWALISAN [place], [place] [phone] MEDICAL JACKELYN VÁZQUEZ M.D.Performed By: #### CMP, DIFF CBC ####[address] [address] USAGFR/1.73 sq M.predicted MDRD (S/P/Bld) [Vol rate/Area]43.960 mL/min/{1.73_m2}NormalThe [facility] Physician GroupComment on above:Performed By: #### CMP, DIFF CBC ####[place] [address] USAGlobulin (S) [Mass/Vol]2.3 g/dLNormalThe [facility] Physician GroupComment on above:Performed By: #### CMP, DIFF CBC ####[place] [address] USAGlucose [Mass/Vol]144 mg/mAHgcq67-866Hdu [facility] Physician GroupComment on above: Result Comment: Random Glucose Reference Range is dependent on time and content of last meal. Glucose of more than 200 mg/dL in a nonstressed, ambulatory subject supports the diagnosis of Diabetes Mellitus. ADA recommended reference rangePerformed By: #### CMP, DIFF CBC ####[place] [address] USAPotassium [Moles/Vol]4.4 mmol/LNormal3.5-5.1 The [facility] Physician GroupComment on above:Performed By: #### CMP, DIFF CBC ####[place] [address] USAProtein [Mass/Vol]5.2 g/dLLow6.4-8.9The [facility] Physician GroupComment on above: Performed By: #### CMP, DIFF CBC ####[place] [address] USASodium [Moles/Vol]142 mmol/OQzcfbs416-758Ues [facility] Physician GroupComment on above:Performed By: #### CMP, DIFF CBC ####[place] [address] USAUrea nitrogen [Mass/Vol]28 mg/dLHigh7-25The [facility] Physician GroupComment on above:Performed By: #### CMP, DIFF CBC ####[place] [address] USADiff and CBCon 40-91-6394Yqtevpkfycme Ql (Bld) SlightNoNovant Health Rehabilitation Hospital Physician GroupComment on above:Performed By: #### DIFF CBC, CMP, PT, LACTIC ####[place] [address] USAPerformed By: #### CMP, DIFF CBC ####[place] [address] USABand form neutrophils/100 WBC (Bld)5 %Normal0-5The [facility] Physician GroupComment on above:Performed By: #### DIFF CBC, CMP, PT, LACTIC ####[place] [address] USAPerformed By: #### CMP, DIFF CBC ####[place] [address] [place] Dohle BodiesSlightNoNovant Health Rehabilitation Hospital Physician GroupComment on above:Performed By: #### DIFF CBC, CMP, PT, LACTIC ####[place] [address] USAErythrocyte distribution width (RBC) [Ratio]16.8 % High11.9-15.3The [facility] Physician GroupComment on above:Performed By: #### DIFF CBC, CMP, PT, LACTIC ####[place] [address] USAHematocrit (Bld) [Volume fraction]30.2 %Low34.0-46.4 The [facility] Physician GroupComment on above:Performed By: #### DIFF CBC, CMP, PT, LACTIC ####[place] [address] USAHemoglobin (Bld) [Mass/Vol]10.1 g/dLLow11.8-15.4The [facility] Comment on above:Performed By: #### DIFF CBC, CMP, PT, LACTIC ####[place] [address] USAHypochromasiaSlight NormalThe [facility] Physician GroupComment on above:Performed By: #### DIFF CBC, CMP, PT, LACTIC ####[place] [id number] USAPerformed By: #### CMP, DIFF CBC ####[place] [address] USALymphocytes/100 WBC (Bld)4 %Blp15-52 The [facility] Physician GroupComment on above:Performed By: #### DIFF CBC, CMP, PT, LACTIC ####[place] [address] USAPerformed By: #### CMP, DIFF CBC ####[place] [address] [facility]H (RBC) [Entitic mass]27.8 kcRpgbsj01.7-34.3 The [facility] Physician GroupComment on above:Performed By: #### DIFF CBC, CMP, PT, LACTIC ####[place] [address] [facility] SH[facility]V (RBC) [Entitic vol]83.2 aJZphvzo43-930Roi [facility] Comment on above:Performed By: #### DIFF CBC, CMP, PT, LACTIC ####[place] [address] USAMean Corpuscular HGB Conc33.4 g/xAIzifau53.0-35.0The [facility] Physician GroupComment on above: Performed By: #### DIFF CBC, CMP, PT, LACTIC ####[place] [address] USAMetamyelocytes1 %High0-0The [facility] Physician GroupComment on above:Performed By: #### DIFF CBC, CMP, PT, LACTIC ####[place] [address] [place] Monocytes/100 WBC (Bld)9 %Normal2-11The [facility] Physician GroupComment on above:Performed By: #### DIFF CBC, CMP, PT, LACTIC ####[place] [address] USAMyelocytes1 %High0-0The [facility] Physician GroupComment on above:Performed By: #### DIFF CBC, CMP, PT, LACTIC ####[address] [address] [place] Performed By: #### CMP, DIFF CBC ####[address] [address] USANucleated Red Blood Cell1 /100{WBC}High0-0The [facility] Physician GroupComment on above:Performed By: #### DIFF CBC, CMP, PT, LACTIC ####[address] [address] [place] Performed By: #### CMP, DIFF CBC ####[address] [address] USAPlatelet EstimateNormalNormalNoNovant Health Rehabilitation Hospital Physician GroupComment on above:Performed By: #### DIFF CBC, CMP, PT, LACTIC ####[place] [address] [facility] Performed By: #### CMP, DIFF CBC ####[place] [address] USAPlatelet mean volume (Bld) [Entitic vol]8.6 fLNormal 6.3-10.7The [facility] Physician GroupComment on above:Performed By: #### DIFF CBC, CMP, PT, LACTIC ####[address] [address] USAPlatelet MorphologyNormalNormalNemours Children's Clinic Hospital Physician GroupComment on above:Result Comment: PERFORMED BY:[address] [place], [place] [phone] MEDICAL DIRECTORCARLOS VÁZQUEZ M.D.Performed By: #### DIFF CBC, CMP, PT, LACTIC ####[place] [id number] [place] Performed By: #### CMP, DIFF CBC ####[place] [address] USAPlatelets (Bld) [#/Vol]208 10*3/iTMjyxxf948-645Qno [facility] Physician GroupComment on above:Performed By: #### DIFF CBC, CMP, PT, LACTIC ####[place] [address] [place] RBC (Bld) [#/Vol]3.63 10*6/uLNormal3.60-5.00The [facility] Physician GroupComment on above:Performed By: #### DIFF CBC, CMP, PT, LACTIC ####[place] [address] USASegmented neutrophils/100 WBC (Bld)80 %Lxti13-48Vbq [facility] Physician GroupComment on above:Performed By: #### DIFF CBC, CMP, PT, LACTIC ####[place] [address] USATarget CellsSlightNemours Children's Clinic Hospital Physician GroupComment on above:Performed By: #### DIFF CBC, CMP, PT, LACTIC ####[place] [address] USAToxic Vacuolation SlightNemours Children's Clinic Hospital Physician GroupComment on above:Performed By: #### DIFF CBC, CMP, PT, LACTIC ####[address] [address] USAPerformed By: #### CMP, DIFF CBC ####[place] [address] USAWBC (Bld) [#/Vol]9.1 10*3/uLNormal3.8-11.6The [facility] Physician GroupComment on above:Performed By: #### DIFF CBC, CMP, PT, LACTIC ####[place] [address] USAWhite Blood Count9.1 [CFU]/mLNormal3.8-11.6The [facility] Physician GroupComment on above:Performed By: #### DIFF CBC, CMP, PT, LACTIC ####[place] [address] [place] Dohle BodiesModerateNemours Children's Clinic Hospital Physician GroupComment on above: Performed By: #### CMP, DIFF CBC ####[address] [place] [address] USAErythrocyte distribution width (RBC) [Ratio]17.3 % High11.9-15.3The [facility] Physician GroupComment on above:Performed By: #### CMP, DIFF CBC ####[place] [address] USAHematocrit (Bld) [Volume fraction]33.6 %Low34.0-46.4The [facility] Physician GroupComment on above:Performed By: #### CMP, DIFF CBC ####[place] [address] USAHemoglobin (Bld) [Mass/Vol]10.8 g/dLLow11.8-15.4The [facility] Physician GroupComment on above: Performed By: #### CMP, DIFF CBC ####[place] [address] USAMCH (RBC) [Entitic mass]27.4 xfAgrrnq62.7-34.3The [facility] Physician GroupComment on above:Performed By: #### CMP, DIFF CBC ####[place] [address] USAMCV (RBC) [Entitic vol]85.8 lSFpyugl77-272Znm [facility] Physician GroupComment on above:Performed By: #### CMP, DIFF CBC ####[place] [address] USAMean Corpuscular HGB Conc32.0 g/dLNormal 32.0-35.0The [facility] Physician GroupComment on above:Performed By: #### CMP, DIFF CBC ####[place] [address] USAMonocytes/100 WBC (Bld)6 %Normal2-11The [facility] Physician GroupComment on above:Performed By: #### CMP, DIFF CBC ####[place] [id number] USAOvalocytesSlightNormalThe [facility] Health Physician GroupComment on above:Performed By: #### CMP, DIFF CBC ####[address] [address] USAPlatelet mean volume (Bld) [Entitic vol]8.7 fLNormal6.3-10.7The [facility] Physician GroupComment on above: Result Comment: PERFORMED BY:[address] [place], [place] [phone] MEDICAL DIRECTORCARLOS VÁZQUEZ M.D.Performed By: #### CMP, DIFF CBC ####[address] [address] USAPlatelets (Bld) [#/Vol]272 10*3/uLNormal 150-450The [facility] Physician GroupComment on above:Performed By: #### CMP, DIFF CBC ####[address] [address] USAPoikilocytosisWatauga Medical Center Physician GroupComment on above: Performed By: #### CMP, DIFF CBC ####[address] [address] USAPolychromasiaSGood Hope Hospital Physician GroupComment on above:Performed By: #### CMP, DIFF CBC ####[address] [address] USARBC (Bld) [#/Vol]3.92 10*6/uL Normal3.60-5.00The [facility] Physician GroupComment on above:Performed By: #### CMP, DIFF CBC ####[address] [address] USASchistocytesSGood Hope Hospital Physician GroupComment on above: Performed By: #### CMP, DIFF CBC ####[address] [address] USASegmented neutrophils/100 WBC (Bld)85 %Watk45-02Yyj [facility] Physician GroupComment on above:Performed By: #### CMP, DIFF CBC ####[address] [address] USAToxic GranulationSGood Hope Hospital Physician GroupComment on above:Performed By: #### CMP, DIFF CBC ####[address] [address] USAWBC (Bld) [#/Vol]11.0 10*3/uLNormal3.8-11.6The [facility] Physician GroupComment on above:Performed By: #### CMP, DIFF CBC ####[address] [address] USAWhite Blood Count11.0 [CFU]/mLNormal3.8-11.6The [facility] Physician GroupComment on above:Performed By: #### CMP, DIFF CBC ####[place] [id number] USAECG 12 lead ECGon 17-42-2714VMA 12 lead ECG NormalThe [facility] Physician [facility] HospitalGlucose Poct Glucometerson 69-52-9540Leenngf9 Glu2: Cleaned MeterNormChildren's Hospital Colorado North CampusComment on above:Result Comment: PERFORMED BY:[place] [address] [address] [place], [place] [phone] MEDICAL DIRECTORCARLOS VÁZQUEZ M.D.Performed By: #### GLULS ####Point of Care testing,Glucose [Mass/Vol]81 mg/dLNoNovant Health Rehabilitation Hospital Physician [facility] HospitalComment on above:Result Comment: Random Glucose Reference Range is dependent on time and content of last meal. Glucose of more than 200 mg/dL in a nonstressed, ambulatory subject supports the diagnosis of Diabetes Mellitus.Performed By: #### GLULS ####Point of Care testing,Lactic Acid on 80-33-6832Rifuepr [Moles/Vol]3.2 mmol/LOff scale high0.5-1.9The [facility]ician [facility] HospitalComment on above:Result Comment: Critical Result : Called to and read back by: GIO TORRE at: 11/05/2024 13:00 by:MLG Lactic Acid reference range has been updated to 0.5 ? 1.9 mmol/L and the critical range of 2.0 or greater.PERFORMED BY:[place] [address] [place], [place] [phone] MEDICAL JACKELYN VÁZQUEZ M.D.Performed By: #### DIFF CBC, CMP, PT, LACTIC ####[place] [address] [place] [address] USALactic Acid Reflexon 55-38-2167Dyjmst Acid Reflex2.0 mmol/LOff scale high0.5-1.9The [facility] Physician GroupComment on above:Result Comment: Critical Result : Called to and read back by: ROXY RAYMOND at: 11/05/2024 16:42:19by:LFM Lactic Acid reference range has been updated to 0.5 ? 1.9 mmol/L and the critical range of 2.0 or greater.PERFORMED BY:[address] [place] [place], [place] [phone] MEDICAL JACKELYN VÁZQUEZ M.D.Performed By: #### LACTIC RFX ####[address] [address]CSWXaxizdgzcqs Time INR on 23-80-7795GCI Coag (PPP) [Relative time]1.4 {INR}NormalThe [facility] Health Physician GroupComment on above:Result Comment: INR Therapeutic [...] with mechanical heart valves: 3 - 4.5PERFORMED BY:[place] [address] [address] [place], [place] [phone] MEDICAL JACKELYN VÁZQUEZ M.D.Performed By: #### DIFF CBC, CMP, PT, LACTIC ####[address] [address] [place] PT Coag (PPP) [Time]15.4 sHigh9.0-12.9The [facility] Physician GroupComment on above:Result Comment: A hematocrit value greater than 55% may lead to inaccurate results in coagulation testing. Patients having hematocrit values >55% require a special collection tube for coagulation studies. Please contact the laboratory at [phone] for redraw instructions.Performed By: #### DIFF CBC, CMP, PT, LACTIC ####[address] [address] [facility] XR abdomen 1Von 39-12-4186LB abdomen 1VNormalThe [facility] Physician [facility] Comprehensive Metabolic Panelon 84-48-2430Btfuybp [Mass/Vol]2.7 g/dLLow3.5-5.7 [facility] HospitalComment on above:Performed By: #### CMP, DIFF CBC ####[address] [address] [facility] Albumin/Globulin [Mass ratio]1.2 {ratio}NormalThe [facility] Comment on above:Performed By: #### CMP, DIFF CBC ####[address] [address] USAALP [Catalytic activity/Vol]143 U/L Yjnd37-770Ubv [facility] HospitalComment on above:Performed By: #### CMP, DIFF CBC ####[address] [address] USAALT [Catalytic activity/Vol]12 U/LNormal7-52The [facility] Comment on above:Performed By: #### CMP, DIFF CBC ####[address] [address] USAAnion gap [Moles/Vol]10.5 mmol/LNormal 6.0-15.0The [facility] Physician GroupComment on above:Performed By: #### CMP, DIFF CBC ####[address] [address] USAAST [Catalytic activity/Vol]28 U/MGtunij27-56Orj [facility] Comment on above:Performed By: #### CMP, DIFF CBC ####[address] [address] USABilirubin [Mass/Vol]0.6 mg/dLNormal 0.3-1.0The [facility] Physician GroupComment on above:Performed By: #### CMP, DIFF CBC ####[address] [address] USACalcium [Mass/Vol]6.7 mg/dLLow8.6-10.3The [facility] Physician GroupComment on above:Performed By: #### CMP, DIFF CBC ####[address] [address] USAChloride [Moles/Vol]113 mmol/OJgyf55-399Dyq [facility] Physician GroupComment on above:Performed By: #### CMP, DIFF CBC ####[address] [address] USACO2 [Moles/Vol]18.7 mmol/LLow21.0-31.0The [facility] Physician GroupComment on above: Performed By: #### CMP, DIFF CBC ####[address] [address] USACreatinine [Mass/Vol]1.15 mg/dLSignificant change down0.60-1.20The [facility] Physician GroupComment on above:Performed By: #### CMP, DIFF CBC ####[address] [address] USACreatinine Clr Calc Wgegmhri64.63NoNovant Health Rehabilitation Hospital Physician Group Comment on above:Result Comment: PERFORMED BY:[address] [place] [place], [place] [phone] MEDICAL JACKELYN VÁZQUEZ M.D.Performed By: #### CMP, DIFF CBC ####[address] [address] USAGFR/1.73 sq M.predicted MDRD (S/P/Bld) [Vol rate/Area]49.989 mL/min/{1.73_m2}NormalThe [facility] Physician GroupComment on above:Performed By: #### CMP, DIFF CBC ####[address] [address] [place] Globulin (S) [Mass/Vol]2.3 g/dLNoNovant Health Rehabilitation Hospital Physician [facility] HospitalComment on above:Performed By: #### CMP, DIFF CBC ####[place] [address] USAGlucose [Mass/Vol]135 mg/xGDsnz61-271Nto [facility] Physician GroupComment on above:Result Comment: Random Glucose Reference Range is dependent on time and content of last meal. Glucose of more than 200 mg/dL in a nonstressed, ambulatory subject supports the diagnosis of Diabetes Mellitus. ADA recommended reference rangePerformed By: #### CMP, DIFF CBC ####[place] [address] [place] Potassium [Moles/Vol]3.2 mmol/LLow3.5-5.1The [facility] Physician GroupComment on above:Performed By: #### CMP, DIFF CBC ####[place] [address] USAProtein [Mass/Vol]5.0 g/dLLow6.4-8.9The [facility] Physician GroupComment on above:Performed By: #### CMP, DIFF CBC ####[place] [address] USASodium [Moles/Vol]139 mmol/RVeycvc909-515Gwv [facility] Physician GroupComment on above: Performed By: #### CMP, DIFF CBC ####[place] [address] USAUrea nitrogen [Mass/Vol]27 mg/dLSignificant change down7-25The [facility] Physician GroupComment on above:Performed By: #### CMP, DIFF CBC ####[place] [id number] USADiff and CBCon 15-62-0778Ucokpnmrdgse Ql (Bld)SlightNormCleveland Clinic Martin South Hospital Physician GroupComment on above:Performed By: #### CMP, DIFF CBC ####[place] [address] USABand form neutrophils/100 WBC (Bld)25 %High0-5The [facility] Physician GroupComment on above:Performed By: #### CMP, DIFF CBC ####[place] [address] USACrenated RBCSlightNormKindred Healthcaree Firelands Physician GroupComment on above:Performed By: #### CMP, DIFF CBC ####[address] [address] USADohle BodiesSlight NormalThe [facility] Physician GroupComment on above:Performed By: #### CMP, DIFF CBC ####[address] [address] [place] Erythrocyte distribution width (RBC) [Ratio]17.1 %High11.9-15.3The [facility] Physician GroupComment on above:Performed By: #### CMP, DIFF CBC ####[address] [address] USAHematocrit (Bld) [Volume fraction]32.6 %Low34.0-46.4The [facility] Physician GroupComment on above:Performed By: #### CMP, DIFF CBC ####[place] [address] USAHemoglobin (Bld) [Mass/Vol]10.8 g/dLLow 11.8-15.4The [facility] Physician GroupComment on above:Performed By: #### CMP, DIFF CBC ####[place] [id number] USAHypochromasiaSGood Hope Hospital Physician GroupComment on above: Performed By: #### CMP, DIFF CBC ####[place] [address] USALymphocytes/100 WBC (Bld)2 %Oge58-24Cya [facility] Physician GroupComment on above:Performed By: #### CMP, DIFF CBC ####[address] [address] USAMCH (RBC) [Entitic mass]27.5 ucUpkmga67.7-34.3The [facility] Physician GroupComment on above: Performed By: #### CMP, DIFF CBC ####[place] [address] USAMCV (RBC) [Entitic vol]83.3 vKGefziy21-054Hyy [facility] Physician GroupComment on above:Performed By: #### CMP, DIFF CBC ####[address] [address] USAMean Corpuscular HGB Conc33.0 g/zOHezblu75.0-35.0The [facility] Physician GroupComment on above:Performed By: #### CMP, DIFF CBC ####[address] [address] USAMetamyelocytes1 %High0-0The [facility] Physician GroupComment on above:Performed By: #### CMP, DIFF CBC ####[address] [address] USAMonocytes/100 WBC (Bld)11 %Normal2-11The [facility] Physician GroupComment on above:Performed By: #### CMP, DIFF CBC ####[address] [address] USAOvalocytesSlightNoNovant Health Rehabilitation Hospital Physician GroupComment on above: Performed By: #### CMP, DIFF CBC ####[address] [address] USAPlatelet EstimateNormalNormalNormCleveland Clinic [facility] Hospital Physician GroupComment on above:Performed By: #### CMP, DIFF CBC ####[address] [address] USAPlatelet mean volume (Bld) [Entitic vol]8.5 fLNormal6.3-10.7The [facility] Physician GroupComment on above:Performed By: #### CMP, DIFF CBC ####[address] [address] USAPlatelet MorphologyNormalNormalNormCleveland Clinic [facility] Hospital Physician GroupComment on above:Result Comment: PERFORMED BY:[address] [place], [place] [phone] MEDICAL JACKELYN VÁZQUEZ M.D.Performed By: #### CMP, DIFF CBC ####[address] [address] [place] Platelets (Bld) [#/Vol]297 10*3/mJJuqfkn284-704Mlm [facility] Comment on above:Performed By: #### CMP, DIFF CBC ####[address] [address] USAPoikilocytosisSGood Hope Hospital Physician GroupComment on above:Performed By: #### CMP, DIFF CBC ####[address] [address] USA PolychromasiaSGood Hope Hospital Physician GroupComment on above:Performed By: #### CMP, DIFF CBC ####[address] [address] USAPromyelocytes1 %High0-0The [facility]ician [facility] Comment on above:Performed By: #### CMP, DIFF CBC ####[address] [address] USARBC (Bld) [#/Vol]3.91 10*6/uLNormal 3.60-5.00The [facility] Physician GroupComment on above:Performed By: #### CMP, DIFF CBC ####[address] [address] USASegmented neutrophils/100 WBC (Bld)60 %Udapuj96-35Lrx [facility] Physician GroupComment on above:Performed By: #### CMP, DIFF CBC ####[address] [address] USAToxic VacuolationSlightNormal The [facility] Physician GroupComment on above:Performed By: #### CMP, DIFF CBC ####[address] [address] USAWBC (Bld) [#/Vol]13.2 10*3/uLHigh3.8-11.6The [facility] Physician GroupComment on above:Performed By: #### CMP, DIFF CBC ####[address] [address] USAWhite Blood Count13.2 [CFU]/mLHigh3.8-11.6The [facility] Physician GroupComment on above:Performed By: #### CMP, DIFF CBC ####[address] [address] USAGlucose Poct Glucometerson 74-89-3982Mweawiw7Mme3: Cleaned MeterNoNovant Health Rehabilitation Hospital Physician GroupComment on above:Result Comment: PERFORMED BY:[place] [address] [place], [place] [phone] MEDICAL JACKELYN VÁZQUEZ M.D.Performed By: #### GLULS ####Point of Care testing, Glucose [Mass/Vol]108 mg/dLNoNovant Health Rehabilitation Hospital Physician GroupComment on above: Result Comment: Random Glucose Reference Range is dependent on time and content of last meal. Glucose of more than 200 mg/dL in a nonstressed, ambulatory subject supports the diagnosis of Diabetes Mellitus.Performed By: #### GLULS ####Point of Care testing,Vancomycin,Randomon 30-86-6773Kycunfpjqb,Sqinbo35.3 Normal5.0-20.0The [facility] Physician GroupComment on above:Order Comment: Date of last dose?: [id number] Time of last dose?: 1829Result Comment: Last dose: - PERFORMED BY:[place] [address] [address] [place], [place] [phone] MEDICAL JACKELYN VÁZQUEZ M.D.Performed By: #### VANCR ####[address] [address] USAAerobic Cultureon 70-42-5211Gdzktzl CultureNoNovant Health Rehabilitation Hospital Physician GroupComment on above:Performed By: #### GS, AERC ####[address] [address] USAComprehensive Metabolic Panelon 12-44-7858Wxyvdli [Mass/Vol]2.7 g/dLLow3.5-5.7The [facility] Comment on above:Performed By: #### PHOS, CMP, DIFF CBC, MG, CALLIE ####[place] [id number] USAAlbumin/Globulin [Mass ratio]1.2 {ratio}NormalThe [facility] Physician GroupComment on above: Performed By: #### PHOS, CMP, DIFF CBC, MG, CALLIE ####[place] [address] USAALP [Catalytic activity/Vol]166 U/L Pekk19-891Gps [facility] Physician GroupComment on above:Performed By: #### PHOS, CMP, DIFF CBC, MG, CALLIE ####[place] [address] USAALT [Catalytic activity/Vol]13 U/LNormal7-52The [facility] Physician GroupComment on above:Performed By: #### PHOS, CMP, DIFF CBC, MG, CALLIE ####[place] [address] USAAnion gap [Moles/Vol]12.4 mmol/LNormal6.0-15.0The [facility] Physician GroupComment on above:Performed By: #### PHOS, CMP, DIFF CBC, MG, CALLIE ####[place] [address] USAAST [Catalytic activity/Vol]28 U/WSebbea36-14Cvx [facility] Physician GroupComment on above:Performed By: #### PHOS, CMP, DIFF CBC, MG, CALLIE ####[place] [address] USABilirubin [Mass/Vol]0.5 mg/dLNormal0.3-1.0The [facility] Physician GroupComment on above:Performed By: #### PHOS, CMP, DIFF CBC, MG, CALLIE ####[place] [address] USACalcium [Mass/Vol]7.0 mg/dLSignificant change down8.6-10.3The [facility] Physician GroupComment on above:Performed By: #### PHOS, CMP, DIFF CBC, MG, CALLIE ####[place] [address] [place] Chloride [Moles/Vol]111 mmol/RFdyi69-591Wza [facility] Physician GroupComment on above:Performed By: #### PHOS, CMP, DIFF CBC, MG, CALLIE ####[place] [address] USACO2 [Moles/Vol]20.2 mmol/LLow 21.0-31.0The [facility] Physician GroupComment on above:Performed By: #### PHOS, CMP, DIFF CBC, MG, CALLIE ####[place] [address] USACreatinine [Mass/Vol]2.08 mg/dLSignificant change down 0.60-1.20The [facility] Physician GroupComment on above:Performed By: #### PHOS, CMP, DIFF CBC, MG, CALLIE ####[place] [address] USACreatinine Clr Calc Qnjlnhwq50.39NoNovant Health Rehabilitation Hospital Physician GroupComment on above:Performed By: #### PHOS, CMP, DIFF CBC, MG, CALLIE ####[address] GFR/1.73 sq M.predicted MDRD (S/P/Bld) [Vol rate/Area]24.549 mL/min/{1.73_m2} NormalThe [facility] Physician GroupComment on above:Performed By: #### PHOS, CMP, DIFF CBC, MG, CALLIE ####[address]Globulin (S) [Mass/Vol]2.2 g/dLNoNovant Health Rehabilitation Hospital Physician GroupComment on above:Performed By: #### PHOS, CMP, DIFF CBC, MG, CALLIE ####[address] Glucose [Mass/Vol]143 mg/oTVojk65-812Vll [facility] Physician GroupComment on above:Result Comment: Random Glucose Reference Range is dependent on time and content of last meal. Glucose of more than 200 mg/dL in a nonstressed, ambulatory subject supports the diagnosis of Diabetes Mellitus. ADA recommended reference rangePerformed By: #### PHOS, CMP, DIFF CBC, MG, CALLIE ####[place] [id number] USAPotassium [Moles/Vol] 3.6 mmol/LSignificant change down3.5-5.1The [facility] Physician GroupComment on above:Performed By: #### PHOS, CMP, DIFF CBC, MG, CALLIE ####[place] [address] USAProtein [Mass/Vol]4.9 g/dLLow 6.4-8.9The [facility] Physician GroupComment on above:Performed By: #### PHOS, CMP, DIFF CBC, MG, CALLIE ####[place] [address] USASodium [Moles/Vol]140 mmol/LSignificant change cmfk298-364 The [facility] Physician GroupComment on above:Performed By: #### PHOS, CMP, DIFF CBC, MG, CALLIE ####[place] [address] USAUrea nitrogen [Mass/Vol]63 mg/dLHigh7-25The [facility] Comment on above:Performed By: #### PHOS, CMP, DIFF CBC, MG, CALLIE ####[place] [address] USACortisolon 11-03-2024 Bkvqqgsj71.6 ug/dLNemours Children's Clinic Hospital Physician [facility] HospitalComment on above:Result Comment: Reference range: AM 6 - 24 ug/dl PM <10 ug/dl [facility] linux engineer and method: CIARAN UNICEL DXI, POLYCLONAL ANTIBODY CORTISOL ASSAY.PERFORMED BY:[address] [phone] MEDICAL JACKELYN VÁZQUEZ M.D.Performed By: #### PHOS, CMP, DIFF CBC, MG, CALLIE ####[place] [address] USADiff and CBCon 99-51-7508Dyhurnqlyixx Ql (Bld)Slight NormalThe [facility] Physician GroupComment on above:Performed By: #### PHOS, CMP, DIFF CBC, MG, CALLIE ####Fire[address] StreetBand form neutrophils/100 WBC (Bld)28 %High0-5The [facility] Physician GroupComment on above:Performed By: #### PHOS, CMP, DIFF CBC, MG, CALLIE ####[place] [address] USACrenated RBCSGood Hope Hospital Physician GroupComment on above: Performed By: #### PHOS, CMP, DIFF CBC, MG, CALLIE ####[place] [address] USADohle BodiesSGood Hope Hospital Physician GroupComment on above:Performed By: #### PHOS, CMP, DIFF CBC, MG, CALLIE ####[address] Erythrocyte distribution width (RBC) [Ratio]17.0 %High11.9-15.3The [facility] Physician GroupComment on above:Performed By: #### PHOS, CMP, DIFF CBC, MG, CALLIE ####[address] Hematocrit (Bld) [Volume fraction]34.2 %Ngfvxf41.0-46.4The [facility] Physician GroupComment on above:Performed By: #### PHOS, CMP, DIFF CBC, MG, CALLIE ####[address] Hemoglobin (Bld) [Mass/Vol]11.1 g/dLLow11.8-15.4The [facility] Comment on above:Performed By: #### PHOS, CMP, DIFF CBC, MG, CALLIE ####[place] [address] USALymphocytes/100 WBC (Bld)5 %Zaa62-07Dhr [facility] Physician GroupComment on above:Performed By: #### PHOS, CMP, DIFF CBC, MG, CALLIE ####[place] [address] USAMCH (RBC) [Entitic mass]27.6 ivFauusg84.7-34.3The [facility] Physician [facility] HospitalComment on above:Performed By: #### PHOS, CMP, DIFF CBC, MG, CALLIE ####[place] [address] USAMCV (RBC) [Entitic vol]84.8 pZCjnskx04-875Rbz [facility] Comment on above:Performed By: #### PHOS, CMP, DIFF CBC, MG, CALLIE ####[place] [address] USAMean Corpuscular HGB Conc32.6 g/uTHzcjzh85.0-35.0The [facility] Physician GroupComment on above: Performed By: #### PHOS, CMP, DIFF CBC, MG, CALLIE ####[place] [address] USAMetamyelocytes4 %High0-0The [facility] Physician GroupComment on above:Performed By: #### PHOS, CMP, DIFF CBC, MG, CALLIE ####[place] [address] [place] Monocytes/100 WBC (Bld)5 %Normal2-11The [facility] Physician [facility] HospitalComment on above:Performed By: #### PHOS, CMP, DIFF CBC, MG, CALLIE ####[place] [address] USAPlatelet EstimateNormalNormal NormalThe [facility] Physician [facility] HospitalComment on above:Performed By: #### PHOS, CMP, DIFF CBC, MG, CALLIE ####[place] [address] USAPlatelet mean volume (Bld) [Entitic vol]8.3 fLNormal 6.3-10.7The [facility] Physician [facility] HospitalComment on above:Result Comment: PERFORMED BY:[address] [place], [place] [phone] MEDICAL JACKELYN VÁZQUEZ M.D.Performed By: #### PHOS, CMP, DIFF CBC, MG, CALLIE ####[place] [address] USAPlatelet MorphologyNormalNormalNormCleveland Clinic [facility] Hospital Physician GroupComment on above:Result Comment: PERFORMED BY:[address]ETGaloEAGLE LAKE, [place] [phone] MEDICAL DIRECTORCARLOS VÁZQUEZ M.D.Performed By: #### PHOS, CMP, DIFF CBC, MG, CALLIE ####[place] [address] [place] Platelets (Bld) [#/Vol]312 10*3/wNDswgjm738-934Bty [facility] Comment on above:Performed By: #### PHOS, CMP, DIFF CBC, MG, CALLIE ####[place] [address] USAPoikilocytosisSlight NormalAdventhealth Central Pasco Er Physician GroupComment on above:Performed By: #### PHOS, CMP, DIFF CBC, MG, CALLIE ####[place] [address] USARBC (Bld) [#/Vol]4.03 10*6/uLNormal3.60-5.00The [facility] Physician GroupComment on above:Performed By: #### PHOS, CMP, DIFF CBC, MG, CALLIE ####[place] [address] [place] Segmented neutrophils/100 WBC (Bld)58 %Hldmmp63-37Por [facility] Comment on above:Performed By: #### PHOS, CMP, DIFF CBC, MG, CALLIE ####[place] [address] USAToxic Vacuolation SlightNormalThe [facility] Physician GroupComment on above:Performed By: #### PHOS, CMP, DIFF CBC, MG, CALLIE ####[place] [address] USAWBC (Bld) [#/Vol]12.1 10*3/uLHigh3.8-11.6The [facility] Physician GroupComment on above:Performed By: #### PHOS, CMP, DIFF CBC, MG, CALLIE ####[address] [address] USAWhite Blood Count12.1 [CFU]/mLHigh3.8-11.6The [facility] Comment on above:Performed By: #### PHOS, CMP, DIFF CBC, MG, CALLIE ####[address] [address] USAGram Stainon 61-89-2460Xqvyisjtqoj observation Gram stain Nom (Unsp spec)Gram Stain Result 2+ White Blood Cells Rare Epithelial Cells Rare Gram Positive Cocci PERFORMED BY: [facility] [address] [place] [address] PATHOLOGIST MINE BOSS CARLOS VÁZQUEZ M.D.NormalThe Atrium Health Physician GroupComment on above: Performed By: #### GS, AERC ####[address] [address] USAMagnesiumon 62-11-7930Duitwlrfw [Mass/Vol]1.9 mg/dL Normal1.9-2.7The Atrium Health Physician GroupComment on above:Result Comment: PERFORMED BY:[address] [place], [place] [phone] MEDICAL DIRECTORCARLOS VÁZQUEZ M.D.Performed By: #### PHOS, CMP, DIFF CBC, MG, CALLIE ####[address] [address] USAPhosphoruson 37-54-8925Bweoaeefo [Mass/Vol]3.8 mg/dL Normal2.5-4.5The [facility] Health Physician GroupComment on above:Performed By: #### PHOS, CMP, DIFF CBC, MG, CALLIE ####[address] [address] USAVancomycin,Randomon 92-38-5653Pceyxoxtgw,Random8.9 Normal5.0-20.0The [facility] Health Physician GroupComment on above:Order Comment: Date of last dose?: 20241102 Time of last dose?: 1600Result Comment: Last dose: - PERFORMED BY:[address] [place], [place] [phone] MEDICAL JACKELYN VÁZQUEZ M.D.Performed By: #### VANCR ####[address] [address] USAXR chest 1V portableon 93-30-0118SC chest 1V [facility] Physician GroupAlanine aminotransferase [Enzymatic activity/volume] in Serum or PlasmaOrdered By: Regina Garcia on 19-82-1868VXW [Catalytic activity/Vol]17 U/LNormal7-52[facility] Washington TownshipComment on above:Performed By: #### PT, DIFF CBC, PTT, TSH3, CMP, CK, HS TROP, CBC, LIPASE ####[address] [address] USAAlbumin [Mass/volume] in Serum or Plasma by Bromocresol green (BCG) dye binding methoOrdered By: Regina Garcia on 61-55-4284Bkeyqnf BCG dye [Mass/Vol]3.5 g/dL3.5-5.7FOhioHealth Mansfield HospitalAlkaline phosphatase [Enzymatic activity/volume] in Serum or PlasmaOrdered By: Regina Garcia on 06-09-8416YAN [Catalytic activity/Vol] 243 U/QCcdu30-655FpdiijhurKettering Health Washington TownshipComment on above:Performed By: #### PT, DIFF CBC, PTT, TSH3, CMP, CK, HS TROP, CBC, LIPASE ####[address] [address] USAAmmonia [Moles/volume] in PlasmaOrdered By: Regina Garcia on 03-43-1107Lvqewsw (P) [Moles/Vol]28 umol/VBlhqov61-64JuoswusedKettering Health Washington TownshipComment on above:Result Comment: PERFORMED BY:[address] [address] [place], [place] [phone] MEDICAL JACKELYN VÁZQUEZ M.D.Performed By: #### LACTIC, ETOH, AMM ####[address] [place] [address] USAAmphetamine Screen Ql (U)Ordered By: Regina Garcia on 78-26-8759Xphpiaouqhse Ql (U)NegativeNegativeKettering Health Washington TownshipAnisocytosis [Presence] in Blood by Light microscopyOrdered By: Regina Garcia on 08-21-9480Nmjbywdcxcie Ql (Bld)SlightNormalKettering Health Washington TownshipComment on above:Performed By: #### PT, DIFF CBC, PTT, TSH3, CMP, CK, HS TROP, CBC, LIPASE ####[facility] [address] [place] [address] USAAppearance of UrineOrdered By: Regina Garcia on 09-51-2359Iloratkhfy (U)CloudyCritically abnormalCleTwin City HospitalComment on above:Order Comment: Name Collection Type:: Pandya Catheter Performed By: #### BELKISUAPLUS, URDS ####[facility] [address] USAArterial Blood Gason 89-85-8529ROV Base Excess -8.5 mmol/LLow-3.0-3.0The At[facility] Health Physician GroupComment on above:Performed By: #### ABG ####Point of Care testing,ABG Frac Inspired O2100%NormalThe Atrium Health Physician GroupComment on above:Performed By: #### ABG ####Point of Care testing,ABG Oxygen Content8.0 mmol/LNormal6.6-9.7The [facility] GroupComment on above:Performed By: #### ABG ####Point of Care testing,ABG Oxygen Uiujatalob91.9 %Rlkogn86.0-100.0The [facility] Health Physician GroupComment on above:Performed By: #### ABG ####Point of Care testing,ABG SYA479.6 mm[Hg]Low 35.0-45.0The [facility] Health Physician GroupComment on above:Performed By: #### ABG ####Point of Care testing,ABG PH7.32Low7.35-7.45[facility] Comment on above:Performed By: #### ABG ####Point of Care testing,ABG ZQ0019.9 mm[Hg]Off scale high80.0-100.0The [facility] Physician GroupComment on above: Performed By: #### ABG ####Point of Care testing,CO2 [Moles/Vol]17.8 mmol/LLow 23.0-27.0The [facility] Health Physician GroupComment on above:Performed By: #### ABG ####Point of Care testing,HCO3 (Bld) [Moles/Vol]16.7 mmol/LLow23.0-29.0The [facility] Health Physician GroupComment on above:Performed By: #### ABG ####Point of Care testing,Respiratory [facility] Physician GroupComment on above:Result Comment: Critical Value called on: 11/02/2024 at 22:41PERFORMED BY:[address] [place], [place] [phone] MEDICAL DIRECTORCARLOS VÁZQUEZ M.D.Performed By: #### ABG ####Point of Care testing,VBG Draw SiteLeft RadialNemours Children's Clinic Hospital Physician GroupComment on above:Performed By: #### ABG ####Point of Care testing,Aspartate aminotransferase [Enzymatic activity/volume] in Serum or PlasmaOrdered By: Regina Garcia on 87-45-2550CKJ [Catalytic activity/Vol]41 U/IUgpl94-41DxoswtmatKettering Health Washington TownshipComment on above:Performed By: #### PT, DIFF CBC, PTT, TSH3, CMP, CK, HS TROP, CBC, LIPASE ####[address] [address] USABacteria [Presence] in Urine by AutomatedOrdered By: Regina Garcia on 31-14-0449Pkgdztqg Auto Ql (U)None seen [HPF]None SeenKettering Health Washington TownshipBand form neutrophils/100 leukocytes in Blood by Manual countOrdered By: Regina Garcia on 33-06-2879Pjnx form neutrophils/100 WBC (Bld)24 %High[address] Comment on above:Performed By: #### PT, DIFF CBC, PTT, TSH3, CMP, CK, HS TROP, CBC, LIPASE ####[address] [place] [address] USABarbiturates [Presence] in Urine by Screen methodOrdered By: Regina Garcia on 96-70-6316Okxmjdenxhdd Screen Ql (U)NegativeNegWVUMedicine Barnesville HospitalBasophils Auto (Bld) [#/Vol]Ordered By: Regina Garcia on 87-58-1933Wfxibckrv (Bld) [#/Vol]N/[facility] Basophils/100 WBC Auto (Bld)Ordered By: Regina Garcia on 11-02-2024 Basophils/100 WBC (Bld)N/[facility] HospitalBenzodiazepines Screen Ql (U)Ordered By: Regina Garcia on 38-72-3599Oueydopbrukwvdd Ql (U) NegativeNegWVUMedicine Barnesville HospitalBenzoylecgonine [Presence] in Urine by Screen methodOrdered By: Regina Garcia on 72-91-1966Ortoogkcgawdzsb Screen Ql (U)NegativeNegWVUMedicine Barnesville HospitalBilirubin Test strip Ql (U)Ordered By: Regina Garcia on 67-16-3308Kfrkcxkhl Ql (U)Negative NegativeKettering Health Washington TownshipBilirubin.total [Mass/volume] in Serum or PlasmaOrdered By: Regina Garcia on 80-47-2151Lclsmnogf [Mass/Vol]0.7 mg/dL Normal0.3-1.0[facility] Washington TownshipComment on above:Performed By: #### PT, DIFF CBC, PTT, TSH3, CMP, CK, HS TROP, CBC, LIPASE ####[address] [place] [address] USABlood Cultureon 95-40-3772Orxlunid identified Cx Nom (Bld)JAYA Mccord notified AB 1508 NO GROWTH 5 DAYS PERFORMED BY: [facility] [address] [place] [address] PATHOLOGIST MINE BOSS CARLOS VÁZQUEZ M.D.[facility] Physician GroupComment on above: Performed By: #### CUBLD ####[address] [place] [address] USABacteria identified Cx Nom (Bld)JAYA Mccord notified AB 1508 NO GROWTH 5 DAYS PERFORMED BY: [facility] [address] [id number] PATHOLOGIST MINE BOSS CARLOS VÁZQUEZ M.D.[facility] Physician GroupComment on above: Performed By: #### CUBLD ####[address] [place] [address] USABlood carbon dioxide, total measurement by calculation (moles/volume)Ordered By: Regina Garcia on 29-50-4726MY2 Calc (Bld) [Moles/Vol]20 mmol/RRnr58-64McstcodoyKettering Health Washington TownshipBlood hemoglobin measurement by calculation (mass/volume)Ordered By: Regina Garcia on 95-02-6113Givmqczbpk (Bld) [Mass/Vol]15.3 g/tPLicppb13.0-17.0[facility] TownshipComment on above:Performed By: #### ERBMP ####[place] [id number] USABlood urea nitrogen (BUN) measurement in whole blood (mass/volume)Ordered By: Regina Garcia on 70-86-8461Ihkg nitrogen [Mass/Vol]72 mg/dLHigh8-26K[facility] Washington TownshipComment on above:Performed By: #### ERBMP ####[address] [id number] USACT abdomen pelvis wo conon 11-02-2024 CT abdomen pelvis wo conNormalAdventhealth Central Pasco Er Physician GroupCT head/brain wo con on 84-42-7755WO head/brain wo [facility] Physician [facility] Memorial HospitalCalcium [Mass/volume] in Serum or PlasmaOrdered By: Regina Garcia on 23-70-6604Zedyvye [Mass/Vol]9.1 mg/dLNormal8.6-10.3FOhioHealth Mansfield HospitalComment on above:Performed By: #### PT, DIFF CBC, PTT, TSH3, CMP, CK, HS TROP, CBC, LIPASE ####[address] [place] [address] [place] Cannabinoids [Presence] in Urine by Screen methodOrdered By: Regina Garcia on 36-79-7630Stfqnflqjkee Screen Ql (U)NegativeNegativeKettering Health Washington TownshipComment on above:These are unconfirmed results and should not be used for legal purposes. Drug Cut-Off Concentration: AMPH 1000 ng/mL VIRGILIO 200 ng/mL OSCAR 200 ng/mL COCM 300 ng/mL OP 300 ng/mL PCP 25 ng/mL THC 20 ng/mLCapillary blood glucose measurement by glucometer (mass/volume)Ordered By: Regina Garcia on 14-50-5351Azuledf [Mass/Vol]121 mg/bXYpvr06-350ZzrvgqyloKettering Health Washington Township Comment on above:Result Comment: PERFORMED BY:[address] [place], [place] [phone] MEDICAL DIRECTORCARLOS VÁZQUEZ M.D.Performed By: #### ERBMP ####[address] [place] [address] USAGlucose [Mass/Vol]110 mg/dL NormalKettering Health Washington TownshipComment on above:Random Glucose Reference Range is dependent [...] Serum or PlasmaOrdered By: Regina Garcia on 73-64-8780LJ8 [Moles/Vol]17.7 mmol/LLow21.0-31.0[facility] TownshipComment on above:Performed By: #### PT, DIFF CBC, PTT, TSH3, CMP, CK, HS TROP, CBC, LIPASE ####[facility] [address] [place] [address] USAChloride [Moles/volume] in Serum or PlasmaOrdered By: Regina Garcia on 11-02-2024 Chloride [Moles/Vol]102 mmol/BLjtnfx83-552AqbfbbdrmKettering Health Washington Township Comment on above:Performed By: #### PT, DIFF CBC, PTT, TSH3, CMP, CK, HS TROP, CBC, LIPASE ####[place] [address] USAColor of Urine by AutoOrdered By: Regina Garcia on 70-83-5516Kkpaa (U)[facility] System East CampusComment on above:Order Comment: Name Collection Type:: Pandya CatheterPerformed By: #### ADDONUAPLUS, URDS ####[place] [id number] [facility] Complete Blood Count Auto Diffon 22-91-5104Hvtt Corpuscular HGB Conc33.0 g/dL Fcpcax87.0-35.0The [facility] Health Physician GroupComment on above:Performed By: #### PT, DIFF CBC, PTT, TSH3, CMP, CK, HS TROP, CBC, LIPASE ####[place] [address] USAWhite Blood Count9.1 [CFU]/mL Normal3.8-11.6The [facility] Health Physician GroupComment on above:Performed By: #### PT, DIFF CBC, PTT, TSH3, CMP, CK, HS TROP, CBC, LIPASE ####[id number] USAComprehensive Metabolic Panel on 50-93-3151Tmqfchj [Mass/Vol]3.5 g/dLNormal3.5-5.7The [facility] Health Physician GroupComment on above:Performed By: #### PT, DIFF CBC, PTT, TSH3, CMP, CK, HS TROP, CBC, LIPASE ####[place] [address] USAGFR/1.73 sq M.predicted MDRD (S/P/Bld) [Vol rate/Area]14.695 mL/min/{1.73_m2}NormalThe Atrium Health Physician GroupComment on above:Performed By: #### PT, DIFF CBC, PTT, TSH3, CMP, CK, HS TROP, CBC, LIPASE ####[place] [address] USACreatine kinase [Enzymatic activity/volume] in Serum or PlasmaOrdered By: Regina Garcia on 34-73-9137PQ [Catalytic activity/Vol]140 U/ZBozngq75-619OnkyrgdivKettering Health Washington TownshipComment on above:Performed By: #### PT, DIFF CBC, PTT, TSH3, CMP, CK, HS TROP, CBC, LIPASE ####[address] [place] [address] USACreatinine [Mass/volume] in Serum or PlasmaOrdered By: Regina Garcia on 96-79-6705Oaudsxagxz [Mass/Vol]3.19 mg/dLHigh0.60-1.20 [facility] TownshipComment on above:Performed By: #### PT, DIFF CBC, PTT, TSH3, CMP, CK, HS TROP, CBC, LIPASE ####[address] [place] [address] USADiff and CBCon 11-02-2024 Metamyelocytes4 %High0-0The [facility] Health Physician GroupComment on above:Performed By: #### PT, DIFF CBC, PTT, TSH3, CMP, CK, HS TROP, CBC, LIPASE ####[address] [address] USAMonocytes/100 WBC (Bld)33.42 %High0.00-20.00[facility] Physician [facility] Memorial HospitalComment on above:Result Comment: For adults in ED, MDW > 20.0 may be associated with a higher risk of sepsis during the first 12 hrs of hospital admission The predictive value of MDW for identifying sepsis in patients with hematological abnormalities has not been establishedPerformed By: #### PT, DIFF CBC, PTT, TSH3, CMP, CK, HS TROP, CBC, LIPASE ####[address] [address] USAMyelocytes1 %High0-0The [facility] Health Physician GroupComment on above: Performed By: #### PT, DIFF CBC, PTT, TSH3, CMP, CK, HS TROP, CBC, LIPASE ####[address] [address] [place] Platelet EstimateNormalNormalNormalThe Moses Taylor HospitalComment on above:Performed By: #### PT, DIFF CBC, PTT, TSH3, CMP, CK, HS TROP, CBC, LIPASE ####[address] [address] [place] Platelet MorphologyNormalNormHCA Florida JFK Hospital Physician [facility] Memorial HospitalComment on above:Result Comment: PERFORMED BY:[address] [place], [place] [phone] MEDICAL JACKELYN VÁZQUEZ M.D.Performed By: #### PT, DIFF CBC, PTT, TSH3, CMP, CK, HS TROP, CBC, LIPASE ####[address] [address] USAToxic VacuolationSlightNemours Children's Clinic Hospital Physician [facility] Memorial HospitalComment on above:Performed By: #### PT, DIFF CBC, PTT, TSH3, CMP, CK, HS TROP, CBC, LIPASE ####[address] [address] USADipstick and Microscopicon 39-29-8856Bbsnpqlk,UrineNone SeenNormalNone SeenAdventhealth Central Pasco Er Physician [facility] Memorial HospitalComment on above:Order Comment: Name Collection Type:: Pandya CatheterPerformed By: #### JOSE LUIS, URDS ####[address] [address] USABilirubin,UrineNegativeNormalNegative The [facility] Health Physician GroupComment on above:Order Comment: Name Collection Type:: Pandya CatheterPerformed By: #### ANAPLUS, URDS ####[address] [address] USAGlucose Ql (U)NormalNormal NormalAdventhealth Central Pasco Er Physician GroupComment on above:Order Comment: Name Collection Type:: Pandya CatheterPerformed By: #### ANAPLUS, URDS ####[address] [address] USAHyaline Casts,Exwxu19-01Fqzykv0-2Rhf [facility] Physician GroupComment on above:Order Comment: Name Collection Type:: Pandya CatheterPerformed By: #### JOSE LUIS, URDS ####[address] [place] [address] [place] Mucus,UrineRareNormalThe Atrium Health Physician GroupComment on above:Order Comment: Name Collection Type:: Pandya CatheterResult Comment: PERFORMED BY:[address] [place], [place] [phone] MEDICAL JACKELYN VÁZQUEZ M.D.Performed By: #### JOSE LUIS, URDS ####[address] [address] USANitrite,UrineNegativeNormalNegativeThe [facility] Physician Group Comment on above:Order Comment: Name Collection Type:: Pandya CatheterPerformed By: #### JOSE LUIS, URDS ####[address] [address] USAOccult Blood,UrineTraceNormalNegativeThe At[facility] Health Physician GroupComment on above:Order Comment: Name Collection Type:: Pandya CatheterResult Comment: PERFORMED BY:[address] [place], [place] [phone] MEDICAL JACKELYN VÁZQUEZ M.D.Performed By: #### JOSE LUIS, URDS ####[address] [address] USARBC,Ozaeo2-6Dsvsoe6-0Qnb [facility] Physician GroupComment on above:Order Comment: Name Collection Type:: Pandya Catheter Performed By: #### JOSE LUIS, URDS ####[address] [place] [address] USASpecificy Aurora,Urine1.521Edmnsl3.001-1.030 The [facility] Health Physician GroupComment on above:Order Comment: Name Collection Type:: Pandya CatheterPerformed By: #### JOSE LUIS, URDS ####[address] [address] USASquamous Epithelial Cell,Mwprp2-9Npqndb5-5Znp [facility] Physician GroupComment on above:Order Comment: Name Collection Type:: Pandya CatheterPerformed By: #### BELKISUAPLUS, URDS ####[place] [address] [place] Urobilinogen,UrineNormalNormalNormalThe [facility] Health Physician GroupComment on above:Order Comment: Name Collection Type:: Pandya CatheterPerformed By: #### JOSE LUIS, URDS ####[place] [address] USAWBC,Gfumd1-7Zltahv4-9Lkf [facility] Physician GroupComment on above: Order Comment: Name Collection Type:: Pandya CatheterPerformed By: #### JOSE LUIS, URDS ####[place] [address] USADrug Screen,Urineon 18-75-3748Clbposwnmxp Screen,UrineNegativeNormal NegativeThe [facility] Health Physician GroupComment on above:Performed By: #### JOSE LUIS, URDS ####[place] [address] USABarbiturate Screen,UrineNegativeNormalNegativeThe [facility] Health Physician GroupComment on above:Performed By: #### JOSE LUIS, URDS ####[place] [address] [facility] Benzodiazepines Screen,UrineNegativeNormalNegativeAdventhealth Central [facility] Er Physician Group Comment on above:Performed By: #### JOSE LUIS, URDS ####[place] [address] USACannabinoid Screen,Urine NegativeNormalNegativeThe [facility] Health Physician GroupComment on above:Result Comment: These are unconfirmed results and should not be used for legal purposes. Drug Cut-Off Concentration: AMPH 1000 ng/mL VIRGILIO 200 ng/mL OSCAR 200 ng/mL COCM 300 ng/mL OP 300 ng/mL PCP 25 ng/mL THC 20 ng/mLPERFORMED BY:[address] [place], [place] [phone] MEDICAL DIRECTORMARIO S KATHIE M.D.Performed By: #### ADDONUAPLUS, URDS ####[facility] [address] [place] [address] USACocaine Screen,UrineNegativeNormalNegativeAdventhealth Central Pasco Er Physician GroupComment on above:Performed By: #### ADDONUAPLUS, URDS ####[facility] [address] [place] [address] USAOpiate Screen,Urine NegativeNormalNegativeThe [facility] Health Physician GroupComment on above:Performed By: #### ADDONUAPLUS, URDS ####[facility] [address] [place] [address] USAPhencyclidine Screen,UrineNegativeNormalNegativeThe [facility] Health Physician GroupComment on above:Performed By: #### TRISHONUAPLUS, URDS ####[address] [place] [address] USAECG 12 lead ECGon 14-81-3350KAN 12 lead ECGNormCleveland Clinic Martin South Hospital Physician GroupECG 12 lead ECGNoNovant Health Rehabilitation Hospital Physician GroupEosinophils Auto (Bld) [#/Vol]Ordered By: Regina Garcia on 34-83-8214Chqdkogbjmk (Bld) [#/Vol]N/[facility] HospitalEosinophils/100 WBC Auto (Bld)Ordered By: Regina Garcia on 25-99-0486Sczdynzuvfn/100 WBC (Bld)N/[facility] Epithelial cells.squamous [#/area] in Urine sediment by Automated countOrdered By: Regina Garcia on 82-73-0997Ihkfmszhek cells.squamous Auto (Urine sed) [#/Area]1-2 [HPF]0-2FOhioHealth Mansfield HospitalErythrocyte distribution width [Ratio] by Automated countOrdered By: Regina Garcia on 11-02-2024 Erythrocyte distribution width (RBC) [Ratio]16.8 %High11.9-15.3FOhioHealth Mansfield HospitalComment on above:Performed By: #### PT, DIFF CBC, PTT, TSH3, CMP, CK, HS TROP, CBC, LIPASE ####[facility] [address] [place] [address] USAErythrocyte morphology finding [Identifier] in BloodOrdered By: Regina Garcia on 24-18-2119MJK morphology finding Nom (Bld) N/[facility] HospitalErythrocytes [#/area] in Urine sediment by Automated countOrdered By: Regina Garcia on 57-58-5761CGO Auto (Urine sed) [#/Area]1-2 [HPF]0-4FOhioHealth Mansfield HospitalErythrocytes [#/volume] in Blood by Automated countOrdered By: Regina Garcia on 00-30-9316RAC (Bld) [#/Vol]4.65 10*6/uLNormal3.60-5.00[facility] TownshipComment on above:Performed By: #### PT, DIFF CBC, PTT, TSH3, CMP, CK, HS TROP, CBC, LIPASE ####[address] [address] USAEthanol [Mass/volume] in Serum or PlasmaOrdered By: Regina Garcia on 11-02-2024 Ethanol [Mass/Vol]mg/dLNoMercy Health Defiance HospitalComment on above: Performed By: #### LACTIC, ETOH, AMM ####[address] [address] USAEthyl Alcohol Profileon 00-95-5362Iqzfyxq EthanolNot performedNoNovant Health Rehabilitation Hospital Physician GroupComment on above:Result Comment: PERFORMED BY:[address] [place], [place] [phone] MEDICAL JACKELYN VÁZQUEZ M.D.Performed By: #### LACTIC, ETOH, AMM ####[address] [address] USAGlucose Poct Glucometerson 28-39-4417Nwwpyzl6Obf9: Cleaned MeterNoNovant Health Rehabilitation Hospital Physician GroupComment on above:Result Comment: PERFORMED BY:[address] [place], [place] [phone] MEDICAL JACKELYN VÁZQUEZ M.D.Performed By: #### GLULS ####Point of Care testing,Glucose [Mass/volume] in Serum or Plasma Ordered By: Regina Garcia on 48-28-4098Kyjgwsn [Mass/Vol]120 mg/oEMkaz05-568 [facility] TownshipComment on above:ADA recommended reference rangeRandom Glucose Reference [...] TSH3, CMP, CK, HS TROP, CBC, LIPASE ####[address] [place] [id number] USAGlucose [Mass/volume] in Urine by Test stripOrdered By: Regina Garcia on 52-36-2957Lqmpmtc Test strip (U) [Mass/Vol] Normal mg/dLNormalKettering Health Washington TownshipHematocrit [Volume Fraction] of Blood by Automated countOrdered By: Regina Garcia on 15-73-0835Txhwxcdjsp (Bld) [Volume fraction]39.1 %Gujcmf65.0-46.4FOhioHealth Mansfield Hospital Comment on above:Performed By: #### PT, DIFF CBC, PTT, TSH3, CMP, CK, HS TROP, CBC, LIPASE ####[address] [place] [id number] USAHemoglobin Test strip Ql (U)Ordered By: Regina Garcia on 11-02-2024 Hemoglobin Ql (U)TraceHighNegativeKettering Health Washington TownshipHemoglobin [Mass/volume] in BloodOrdered By: Regina Garcia on 08-13-7158Qvmwytvuld (Bld) [Mass/Vol]12.9 g/fRPxgykr06.8-15.4FOhioHealth Mansfield HospitalComment on above:Performed By: #### PT, DIFF CBC, PTT, TSH3, CMP, CK, HS TROP, CBC, LIPASE ####[address] [address] USAHyaline casts [#/area] in Urine sediment by Automated countOrdered By: Regina Garcia on 87-96-7769Yhnyceq casts Auto (Urine sed) [#/Area]20-49 [LPF]High0-8K[facility] Washington TownshipINR in Platelet poor plasma by Coagulation assayOrdered By: Regina Garcia on 65-11-8179EDX Coag (PPP) [Relative time]1.0 {INR}Normal [facility] Washington TownshipComment on above:INR Therapeutic Range A) Pre- and [...] TSH3, CMP, CK, HS TROP, CBC, LIPASE ####[address] [place] [address] USAISTAT ER Chem8+ Panelon 10-71-5566MH8 [Moles/Vol]20 mmol/FPsb12-27Vzs [facility] Physician GroupComment on above:Performed By: #### ERBMP ####[address] [place] [address] USAISTAT Ionized Calcium1.20 mol/LNormal1.12-1.32The [facility] Health Physician GroupComment on above:Performed By: #### ERBMP ####[address] [place] [address] USAISTAT ER Chem8+ PanelOrdered By: Regina Garcia on 45-18-0870Axginyvlip (Bld) [Volume fraction]45.0 %Fnolli92.0-51.0[facility] Comment on above:Performed By: #### ERBMP ####[address] [address] USAKetones [Presence] in Urine by Test strip Ordered By: Regina Garcia on 81-45-6835Wisvoom Ql (U)NegativeNormalNegative [facility] Washington TownshipComment on above:Order Comment: Name Collection Type:: Pandya CatheterPerformed By: #### ADDONUAPLUS, URDS ####[address] [place] [address] USALactate [Moles/volume] in Serum or PlasmaOrdered By: Regina Garcia on 11-02-2024 Lactate [Moles/Vol]2.7 mmol/LOff scale high0.5-1.9[facility] TownshipComment on above:Critical Result : Called to and [...] the critical range of 2.0 or greater.PERFORMED BY:[address] [address] [address] [place], [place] [phone] MEDICAL JACKELYN VÁZQUEZ M.D.Performed By: #### LACTIC, ETOH, AMM ####[address] [address] USALactic Acidon 65-85-0185Nasweze [Moles/Vol]1.4 mmol/LNormal0.5-1.9The [facility] Physician GroupComment on above:Order Comment: JAYA Mccord notified [place] [address]Result Comment: Lactic Acid reference range has been updated to 0.5 ? 1.9 mmol/L and the critical range of 2.0 or greater.PERFORMED BY:[address] [place], [place] [phone] MEDICAL DIRECTORCARLOS VÁZQUEZ M.D.Performed By: #### LACTIC ####[address] [address] USALeukocyte esterase [Presence] in Urine by Test stripOrdered By: Regina Garcia on 79-27-2838Kwsdsdpdo esterase Test strip Ql (U)NegativeNormalNegativeKettering Health Washington TownshipComment on above:Order Comment: Name Collection Type:: Pandya Catheter Performed By: #### ADDONUAPLUS, URDS ####[address] [address] USALeukocytes [#/area] in Urine sediment by Automated countOrdered By: Regina Garcia on 16-77-3906PPD Auto (Urine sed) [#/Area]1-2 [HPF]0-4FOhioHealth Mansfield HospitalLeukocytes [#/volume] corrected for nucleated erythrocytes in Blood by Automated counOrdered By: Regina Garcia on 55-41-1704TNG corrected for nucl RBC Auto (Bld) [#/Vol]9.1 10*3/uL3.8-11.6FOhioHealth Mansfield HospitalLeukocytes [#/volume] in Blood by Automated countOrdered By: Regina Garcia on 12-44-8344RCH (Bld) [#/Vol]9.1 10*3/uLNormal3.8-11.6FOhioHealth Mansfield HospitalComment on above:Performed By: #### PT, DIFF CBC, PTT, TSH3, CMP, CK, HS TROP, CBC, LIPASE ####[address] [place] [address] USALipase [Enzymatic activity/volume] in Serum or PlasmaOrdered By: Regina Garcia on 11-02-2024 Lipase [Catalytic activity/Vol]12.0 U/SDivfay57.0-82.0[facility] Washington TownshipComment on above:Performed By: #### PT, DIFF CBC, PTT, TSH3, CMP, CK, HS TROP, CBC, LIPASE ####[facility] [place] [id number] [facility] CENTERLymphocytes Auto (Bld) [#/Vol]Ordered By: Regina Garcia on 94-37-3964Padgjhjmiom (Bld) [#/Vol]N/[facility] Lymphocytes/100 WBC Auto (Bld)Ordered By: Regina Garcia on 11-02-2024 Lymphocytes/100 WBC (Bld)N/[facility] HospitalLymphocytes/100 leukocytes in Blood by Manual countOrdered By: Regina Garcia on 11-02-2024 Lymphocytes/100 WBC (Bld)5 %Drv08-48FreernejqKettering Health Washington TownshipComment on above:Performed By: #### PT, DIFF CBC, PTT, TSH3, CMP, CK, HS TROP, CBC, LIPASE ####[address] [address] [facility] [place] [Entitic mass] by Automated countOrdered By: Regina Garcia on 13-78-6614LLY (RBC) [Entitic mass]27.8 nmEqnwjv84.7-34.3FOhioHealth Mansfield Hospital Comment on above:Performed By: #### PT, DIFF CBC, PTT, TSH3, CMP, CK, HS TROP, CBC, LIPASE ####[place] [id number] [facility] Auto (RBC) [Mass/Vol]Ordered By: Regina Garcia on 28-44-8599OHXY (RBC) [Mass/Vol]33.0 g/dL32.0-35.0[facility] Washington TownshipMCV [Entitic volume] by Automated countOrdered By: Regina Garcia on 99-30-4625JUA (RBC) [Entitic vol]84.1 dLIzucrl32-618DacxuhqqpKettering Health Washington TownshipComment on above:Performed By: #### PT, DIFF CBC, PTT, TSH3, CMP, CK, HS TROP, CBC, LIPASE ####[id number] [facility] Metamyelocytes/100 WBC Manual cnt (Bld)Ordered By: Regina Garcia on 11-02-2024 Metamyelocytes/100 WBC (Bld)4 %High0-0[facility] Washington TownshipMonocyte distribution width [Entitic volume] in Blood by AutomatedOrdered By: Regina Garcia on 22-06-5664Bayslzhe distribution width Auto (Bld) [Entitic vol]33.42 % High0.00-20.00[facility] Washington TownshipComment on above:For adults in ED, MDW > 20.0 may be associated with a higher risk of sepsis during the first 12 hrs of hospital admissionThe predictive value of MDW for identifying sepsis in patients with hematological abnormalities has not been establishedMonocytes Auto (Bld) [#/Vol]Ordered By: Regina Garcia on 31-69-8275Sccighodd (Bld) [#/Vol]N/[facility] HospitalMonocytes/100 WBC Auto (Bld)Ordered By: Regina Garcia on 30-05-9521Vknimxqcu/100 WBC (Bld)NAdena Fayette Medical CenterMonocytes/100 leukocytes in Blood by Manual countOrdered By: Regina Garcia on 36-81-1729Wnfbhtiyg/100 WBC (Bld)9 %Normal2-11[facility] Washington TownshipComment on above:Performed By: #### PT, DIFF CBC, PTT, TSH3, CMP, CK, HS TROP, CBC, LIPASE ####[facility] [address] [place] [address] USAMucus [Presence] in Urine by AutomatedOrdered By: Regina Garcia on 56-29-0349Jkbpg Auto Ql (U)Rare [LPF][facility] TownshipMyelocytes/100 WBC Manual cnt (Bld)Ordered By: Regina Garcia on 31-30-2767Ywjzwvmims/100 WBC (Bld)1 %High00[facility] Neutrophils Auto (Bld) [#/Vol]Ordered By: Regina Garcia on 11-02-2024 Neutrophils (Bld) [#/Vol]N/[facility] HospitalNeutrophils/100 WBC Auto (Bld)Ordered By: Regina Garcia on 22-51-8033Cqrpiwbffqp/100 WBC (Bld)N/A [facility] TownshipNitrite Test strip Ql (U)Ordered By: Regina Garcia on 73-16-2695Ruboxgj Ql (U)NegativeNegWVUMedicine Barnesville HospitalNo Panel InformationOrdered By: Regina Garcia on 85-14-9609Kvmzn Gas Critical ValueSee commentKettering Health Washington TownshipComment on above: Critical Value called on: 11/02/2024 at 12:37Blood Gas Sample SiteVenous [facility] TownshipFiO221 %[facility] Washington TownshipVenous Blood Base Excess-5.8 mmol/LLow-3.0-3.0[facility] TownshipVenous Blood Oxygen Content7.4 mmol/L6.6-9.7FOhioHealth Mansfield HospitalVenous Blood Oxygen Ynyzwxgvhp99.4 %Critically high73.0-76.0[facility] Washington TownshipVenous Blood Partial Pressure CO238.1 mm[Hg]38.0-50.0[facility] Washington TownshipVenous Blood Partial Pressure O254.5 mm[Hg]High35.0-45.0[facility] TownshipVenous Blood pH7.337.32-7.43[facility] TownshipBedside Glucose CommentGlu2: cleaned meterKettering Health Washington TownshipEstimated GFR (CKD-EPI)14.695 mL/MinKettering Health Washington Township Pharmacy Creatinine Clearance (ChemN/[facility] HospitalNucleated erythrocytes [Presence] in Blood by Automated countOrdered By: Regina Garcia on 56-61-5360Euzmrhjhu RBC Auto Ql (Bld)N/[facility] Opiates [Presence] in Urine by Screen methodOrdered By: Regina Garcia on 33-77-7489Kdonfmy Screen Ql (U)NegativeNegWVUMedicine Barnesville Hospital Partial Thromboplastin Timeon 33-06-7233zRMM Coag (Bld) [Time]30.9 sNormal 25.1-36.5The Atrium Health Physician GroupComment on above:Result Comment: A hematocrit value greater than 55% may lead to inaccurate results in coagulation testing. Patients having hematocrit values >55% require a special collection tube for coagulation studies. Please contact the laboratory at [phone] for redraw instructions.PERFORMED BY:[address] [place], [place] [phone] MEDICAL JACKELYN VÁZQUEZ M.D.Performed By: #### PT, DIFF CBC, PTT, TSH3, CMP, CK, HS TROP, CBC, LIPASE ####[address] [address] [facility] Phencyclidine Screen Ql (U)Ordered By: Regina Garcia on 11-02-2024 Phencyclidine Ql (U)NegativeNegativeKettering Health Washington TownshipPlatelet adequacy [Presence] in Blood by Light microscopyOrdered By: Regina Garcia on 63-64-7099Fipfzvpvl LM Ql (Bld)NormalNoMercy Health Defiance Hospital Platelet mean volume [Entitic volume] in Blood by Automated countOrdered By: Regina Garcia on 36-28-6180Wepkmtim mean volume (Bld) [Entitic vol]8.3 fL Normal6.3-10.7FOhioHealth Mansfield HospitalComment on above:Result Comment: PERFORMED BY:[address] [place], [place] [phone] MEDICAL JACKELYN VÁZQUEZ M.D.Performed By: #### PT, DIFF CBC, PTT, TSH3, CMP, CK, HS TROP, CBC, LIPASE ####[address] [address] USAPlatelet morphology finding [Identifier] in BloodOrdered By: Regina Garcia on 16-42-9114Lhrszgvh morphology finding Nom (Bld)NormalChildren's Hospital of Columbus Platelets [#/volume] in Blood by Automated countOrdered By: Regina Garcia on 26-00-4429Qmpmnmgxn (Bld) [#/Vol]325 10*3/sYHknsmc604-817GaezxxfddKettering Health Washington TownshipComment on above:Performed By: #### PT, DIFF CBC, PTT, TSH3, CMP, CK, HS TROP, CBC, LIPASE ####[address] [address] USAPotassium [Moles/volume] in Serum or PlasmaOrdered By: Regina Garcia on 14-13-4330Ebgipybzj [Moles/Vol]5.3 mmol/LHigh3.5-5.1 [facility] TownshipComment on above:Performed By: #### PT, DIFF CBC, PTT, TSH3, CMP, CK, HS TROP, CBC, LIPASE ####[address] [place] [address] USAProtein [Mass/volume] in Serum or PlasmaOrdered By: Regina Garcia on 72-18-0129Uietmkj [Mass/Vol]6.0 g/dLLow 6.4-8.9[facility] TownshipComment on above:Performed By: #### PT, DIFF CBC, PTT, TSH3, CMP, CK, HS TROP, CBC, LIPASE ####[address] [place] [address] USAProtein [Mass/volume] in Urine by Test stripOrdered By: Regina Garcia on 90-04-9492Ntfeovv (U) [Mass/Vol]30 mg/dLNormalNegativeKettering Health Washington TownshipComment on above:Order Comment: Name Collection Type:: Pandya CatheterPerformed By: #### ADDONUAPLUS, URDS ####[address] [place] [address] [facility] Prothrombin time (PT)Ordered By: Regina Garcia on 13-57-7951SA Coag (PPP) [Time]11.6 sNormal9.0-12.9[facility] TownshipComment on above:A hematocrit value greater than 55% may lead to inaccurate results in coagulation testing. Patientshaving hematocrit values >55% require a special collection tube for coagulation studies. Please contact the laboratory at [phone] for redraw instructions.Result Comment: A hematocrit value greater than 55% may lead to inaccurate results in coagulation testing. Patients having hematocrit values >55% require a special collection tube for coagulation studies. Please contact the laboratory at [phone] for redraw instructions.Performed By: #### PT, DIFF CBC, PTT, TSH3, CMP, CK, HS TROP, CBC, LIPASE ####[address] [place] [address] USASegmented neutrophils/100 leukocytes in Blood by Manual countOrdered By: Regina Garcia on 11-02-2024 Segmented neutrophils/100 WBC (Bld)58 %Wkcqsy71-10IvzfcnnxxKettering Health Washington TownshipComment on above:Performed By: #### PT, DIFF CBC, PTT, TSH3, CMP, CK, HS TROP, CBC, LIPASE ####[address] [place] [address] USASerum globulin measurement by calculation (mass/volume)Ordered By: Regina Garcia on 22-82-8486Yghzwlin (S) [Mass/Vol]2.5 g/dLNormalKettering Health Washington TownshipComment on above:Performed By: #### PT, DIFF CBC, PTT, TSH3, CMP, CK, HS TROP, CBC, LIPASE ####[address] [place] [address] USASerum or plasma albumin/globulin mass ratioOrdered By: Regina Garcia on 05-32-8155Agxotit/Globulin [Mass ratio]1.4 {ratio}Normal [facility] TownshipComment on above:Performed By: #### PT, DIFF CBC, PTT, TSH3, CMP, CK, HS TROP, CBC, LIPASE ####[address] [address] USASerum or plasma anion gap determinationOrdered By: Regina Garcia on 94-94-9687Cocad gap [Moles/Vol]17.6 mmol/LHigh6.0-15.0[facility] Washington TownshipComment on above:Performed By: #### PT, DIFF CBC, PTT, TSH3, CMP, CK, HS TROP, CBC, LIPASE ####[address] [address] USASerum or plasma ethanol measurement (mass/volume)Ordered By: Regina Garcia on 11-02-2024 Ethanol [Mass/Vol]TNPKettering Health Washington TownshipComment on above:Test not performedSodium [Moles/volume] in Serum or PlasmaOrdered By: Regina Garcia on 41-67-3761Ftkgco [Moles/Vol]132 mmol/TDpq397-335MqqpaoxviKettering Health Washington TownshipComment on above:Performed By: #### PT, DIFF CBC, PTT, TSH3, CMP, CK, HS TROP, CBC, LIPASE ####[address] [place] [address] USASpecific gravity Test strip (U) [Rel density]Ordered By: Regina Garcia on 61-85-1710Zhvhtmfo gravity (U) [Rel density]1.0231.001-1.030[facility]acon[facility] Hospitaltool Occult Blood (Guaiac)on 61-55-4765Jaaic Occult Blood (Guaiac)NormalThe Atrium Health Physician GroupComment on above:Performed By: #### OB(GUAIAC) ####[address] [place], [place] [address]GONQqcrw gastrointestinal hemoglobin detectionOrdered By: Regina Garcia on 48-86-3108Kaqtrrnvyf.gastrointestinal Ql (Stl)[facility] TownshipThyrotropin [Units/volume] in Serum or PlasmaOrdered By: Regina Garcia on 05-69-6099DAS Qn2.44 m[IU]/LNormal0.45-5.33[facility] Comment on above:Result Comment: PERFORMED BY:[address] [place], [place] [phone] MEDICAL DIRECTORCARLOS VÁZQUEZ M.D.Performed By: #### PT, DIFF CBC, PTT, TSH3, CMP, CK, HS TROP, CBC, LIPASE ####[address] [place] [address] USAToxic leukocyte vacuolation detectionOrdered By: Regina Garcia on 08-60-2423Iefvziycr toxic vacuoles LM Ql (Bld)SlightKettering Health Washington TownshipTroponin I High Sensitivityon 04-19-1700Ppgxvwmu I High Jgdnhgwvhpl63Fzdp0-18Vph At[facility] Health Physician GroupComment on above:Result Comment: The Troponin units of report have been changed to meet the Chest Pain Accreditationrequirement, element EC5.M1l2. Troponin units are changed from pg/ml to ng/L. Also, the decimal is removed and results are in whole numbers.PERFORMED BY:[address] [place] [place], [place] [phone] MEDICAL DIRECTORCARLOS VÁZQUEZ M.D.Performed By: #### PT, DIFF CBC, PTT, TSH3, CMP, CK, HS TROP, CBC, LIPASE ####[facility] [address] [place] [address] USATroponin I.cardiac [Mass/volume] in Serum or Plasma by Detection limit <= 0.01 ng/mLOrdered By: Regina Garcia on 38-27-3526Zgmhtdua I.cardiac DL <= 0.01 ng/mL [Mass/Vol]28 ng/LHigh0-15[facility] TownshipComment on above:The Troponin units of report have been changed to meet the Chest Pain Accreditation requirement, element EC5.M1l2. Troponin units are changed from pg/ml to ng/L. Also, the decimal is removed and results are in whole numbers.Urea nitrogen [Mass/volume] in Serum or PlasmaOrdered By: Regina Garcia on 72-06-9685Bzqp nitrogen [Mass/Vol]77 mg/dLRichwood Area Community Hospital7-25[facility] TownshipComment on above: Performed By: #### PT, DIFF CBC, PTT, TSH3, CMP, CK, HS TROP, CBC, LIPASE ####[facility] [place] [address] [facility] Urobilinogen Test strip (U) [Mass/Vol]Ordered By: Regina Garcia on 11-02-2024 Urobilinogen (U) [Mass/Vol]Normal mg/dLNormalKettering Health Washington Township Venous Blood GasOrdered By: Regina Garcia on 58-28-3763HV0 [Moles/Vol]20.7 mmol/LLow24.0-29.0[facility] Washington TownshipComment on above:Performed By: #### VBG ####Point of Care testing,HCO3 (Bld) [Moles/Vol]19.5 mmol/LLow 23.0-29.0[facility] Washington TownshipComment on above:Performed By: #### VBG ####Point of Care testing,Venous Blood Gason 76-28-5627Unshbvdxtve Critical NormalThe Atrium Health Physician GroupComment on above:Result Comment: Critical Value called on: 11/02/2024 at 12:37PERFORMED BY:[facility] [place], [place] [phone] MEDICAL DIRECTORCARLOS VÁZQUEZ M.D.Performed By: #### VBG ####Point of Care testing, VBG Base Excess-5.8 mmol/LLow-3.0-3.0The [facility] Health Physician GroupComment on above:Performed By: #### VBG ####Point of Care testing,VBG Draw SiteVenousNormal The [facility]rium Health Physician GroupComment on above:Performed By: #### VBG ####Point of Care testing,VBG Frac Inspired O221 %NormalThe Atrium Health Physician Group Comment on above:Performed By: #### VBG ####Point of Care testing,VBG O2 Content 7.4 mmol/LNormal6.6-9.7The [facility] Health Physician GroupComment on above:Performed By: #### VBG ####Point of Care testing,VBG Oxygen Vmhksgrkxc62.4 %Off scale high 73.0-76.0The [facility] Health Physician GroupComment on above:Performed By: #### VBG ####Point of Care testing,VBG CGF377.1 mm[Hg]Qmfrrn81.0-50.0The [facility] Health Physician GroupComment on above:Performed By: #### VBG ####Point of Care testing,VBG PH Venous PH7.63Ziangs0.32-7.43The [facility] Physician [facility] HospitalComment on above:Performed By: #### VBG ####Point of Care testing,VBG PO254.5 mm[Hg]High 35.0-45.0The [facility] Health Physician GroupComment on above:Performed By: #### VBG ####Point of Care testing,Whole blood chloride measurementOrdered By: Regina Garcia on 17-38-7407Gxbobfsj [Moles/Vol]102.0 mmol/LBzcstd25-375NciichjcvKettering Health Washington TownshipComment on above:Performed By: #### ERBMP ####[facility] [id number] USAWhole blood creatinine measurementOrdered By: Regina Garcia on 12-88-9577Kmvcrxfcyi [Mass/Vol]3.3 mg/dLHigh0.6-1.3FOhioHealth Mansfield HospitalComment on above: ER/ESD physician is notified/shown all ISTAT results.Critical values may be confirmed by laboratorytesting ifdeemed necessary by ER attending doctor.Result Comment: ER/ESD physician is notified/shown all ISTAT results. Critical values may be confirmed by laboratory testing if deemed necessary by ER attending doctor.Performed By: #### ERBMP ####[id number] USAWhole blood ionized calcium measurement (moles/volume)Ordered By: Regina Garcia on 68-13-1974Hlgizmf.ionized (Bld) [Moles/Vol]1200 mmol/L1.12-1.32[facility] TownshipWhole blood potassium measurementOrdered By: Regina Garcia on 88-21-2604Laikunpdm [Moles/Vol]5.2 mmol/LHigh3.5-4.9[facility] TownshipComment on above:Performed By: #### ERBMP ####[address] USAWhole blood sodium measurementOrdered By: Regina Garcia on 87-61-2176Trhgpd [Moles/Vol]135 mmol/XKoy955-185HirdskmteKettering Health Washington TownshipComment on above:Performed By: #### ERBMP ####[id number] USAX-ray reportOrdered By: Alvaro Reid on 45-47-5688Slymd reportPREMIER HEALTH [facility] [address] [place] [address] XRay Report Signed Patient: Renuka Owen MR#: [id number] : 1950 Acct:[id number] Age/Sex: 73 / F ADM Date: 5 Loc: ER Room: Type: [facility] ER Attending Dr: Copies to: Regina Garcia, [...] Reid M.D. 11/02/2024 3:05 PM Dictation Location: [facility]--20 Transcribed By: [facility] 11/02/24 1505 Dictated By: Alvaro Reid DO 11/02/24 1504 Signed By: 11/02/24 1505 [facility] TownshipXR chest 1V portableon 65-57-4943ME chest 1V portableNemours Children's Clinic Hospital Physician GroupaPTT in Platelet poor plasma by Coagulation assayOrdered By: Regina Garcia on 11-16-9290uDLW Coag (PPP) [Time] 30.9 s25.1-36.5FOhioHealth Mansfield HospitalComment on above:A hematocrit value greater than 55% may lead to inaccurate results in coagulation testing. Patientshaving hematocrit values >55% require a special collection tube for coagulation studies. Please contact the laboratory at [phone] for redraw instructions.pH of Urine by Test stripOrdered By: Regina Garcia on 11-02-2024 pH (U)5.0 [pH]Normal5.0-9.0[facility] TownshipComment on above: Order Comment: Name Collection Type:: Pandya CatheterPerformed By: #### ADDONUAPLUS, URDS ####[facility] [address] [place] [address] USABasophils Auto (Bld) [#/Vol]on 66-85-7739Bhbhsbjxs (Bld) [#/Vol]0.1 10 3/uL0.0-0.1FOhioHealth Mansfield HospitalBasophils/100 WBC Auto (Bld)on 29-65-2610Mtfnbebwe/100 WBC (Bld)0.9 %0.2-2.0[facility] Eosinophils/100 WBC Auto (Bld)on 22-70-5967Bbugjugrgck/100 WBC (Bld)3.4 %0.9-7.0 [facility] TownshipErythrocyte distribution width Auto (RBC) [Ratio]on 98-31-1337Vbttornqfbh distribution width (RBC) [Ratio]17.2 %High 11.0-15.0[facility] TownshipEstimated glomerular filtration rate (GFR) non- Americanon 12-57-3744ORQ/1.73 sq M.predicted among non-blacks MDRD (S/P/Bld) [Vol rate/Area]21 mL/min/{1.73_m2}Low>=60 mL/min/1.73m 2FOhioHealth Mansfield HospitalHematocrit Auto (Bld) [Volume fraction]on 10-13-2024 Hematocrit (Bld) [Volume fraction]35.1 %Low36.0-48.0[facility] TownshipHemoglobin [Mass/volume] in Bloodon 98-50-1482Mhvhztfbbv (Bld) [Mass/Vol] 11.3 g/dLLow12.0-16.0[facility] TownshipLaboratory - Chemistry and Chemistry - challengeon 60-09-5804Isicphh [Mass/Vol]9.6 mg/dL8.5-10.1FOhioHealth Mansfield HospitalChloride [Moles/Vol]100 mmol/V57-435KhxtbdwkmKettering Health Washington TownshipCO2 [Moles/Vol]34.1 mmol/LHigh21.0-32.0[facility] TownshipCreatinine [Mass/Vol]2.31 mg/dLHigh0.55-1.02[facility] TownshipGFR/1.73 sq M.predicted MDRD (S/P/Bld) [Vol rate/Area]25 mL/min/{1.73_m2} Low>=60 mL/min/1.73m 2FOhioHealth Mansfield HospitalGlucose [Mass/Vol]92 mg/vQ45-766CaynmzfigKettering Health Washington TownshipPotassium [Moles/Vol]4.9 mmol/L 3.5-5.1FSelect Medical Specialty Hospital - Cleveland-Fairhillodium [Moles/Vol]138 mmol/D252-706 [facility] TownshipUrea nitrogen [Mass/Vol]62.0 mg/dLHigh7.0-18.0 [facility] TownshipUrea nitrogen/Creatinine [Mass ratio]26.8 mg/mg [facility] TownshipLaboratory - Hematology and Cell countson 39-05-7218Jodosghs granulocytes/100 WBC (Bld)0.4 %0.0-0.5FOhioHealth Mansfield HospitalLeukocytes [#/volume] corrected for nucleated erythrocytes in Blood by Automated counon 82-89-6915HQW corrected for nucl RBC Auto (Bld) [#/Vol]8.0 10 3/uL4.0-11.0[facility] TownshipLymphocytes Auto (Bld) [#/Vol]on 35-66-2850Jbstxuhdhkb (Bld) [#/Vol]1.2 10 3/uL1.2-3.8[facility] TownshipLymphocytes/100 WBC Auto (Bld)on 10-13-2024 Lymphocytes/100 WBC (Bld)15.0 %Low20.5-60.0[facility] CenterH Auto (RBC) [Entitic mass]on 26-46-7237WYL (RBC) [Entitic mass]27.3 pg26.7-34.0 [facility] TownshipMCHC Auto (RBC) [Mass/Vol]on 47-61-4113VOKO (RBC) [Mass/Vol]32.2 g/dL29.9-35.2FOhioHealth Mansfield HospitalMCV Auto (RBC) [Entitic vol]on 17-54-2402SRF (RBC) [Entitic vol]84.8 fL81.0-99.0[facility] TownshipMonocytes Auto (Bld) [#/Vol]on 26-99-0255Jnwnuysfw (Bld) [#/Vol]1.1 10 3/uLHigh0.3-0.8[facility] TownshipMonocytes/100 WBC Auto (Bld)on 77-96-5684Vekygcwla/100 WBC (Bld)13.5 %High1.7-12.0[facility] TownshipNeutrophils Auto (Bld) [#/Vol]on 41-81-0025Dyoikvhbadh (Bld) [#/Vol]5.3 10 3/uL1.4-6.5FOhioHealth Mansfield HospitalNeutrophils/100 WBC Auto (Bld)on 95-31-9096Eeufctmezji/100 WBC (Bld)66.8 %43.0-75.0[facility] TownshipNo Panel Informationon 04-19-0087Dqthuciqrqu # (Auto)0.3 10 3/uL0.0-0.7FOhioHealth Mansfield HospitalImmature Granulocyte # (Auto)0.03 10 3/uL0.00-0.03[facility] TownshipPlatelet mean volume Auto (Bld) [Entitic vol]on 10-36-4505Wfpxacyb mean volume (Bld) [Entitic vol]9.6 fL 9.5-13.5FOhioHealth Mansfield HospitalPlatelets Auto (Bld) [#/Vol]on 83-72-8408Xkmbhnubg (Bld) [#/Vol]305 10 3/rC369-340QzskioyeuKettering Health Washington TownshipRBC Auto (Bld) [#/Vol]on 88-06-5560MQA (Bld) [#/Vol]4.14 10 6/uLLow 4.20-5.40[facility]acon[facility] Hospitalerum or plasma anion gap determinationon 75-38-5408Qpkbo gap [Moles/Vol]8.8 mmol/LFOhioHealth Mansfield HospitalXR Foot - left 3 Viewson 09-55-1971Cmgwzji Result: 3 views left foot: Weight-bearing: DP, oblique, lateral: 09/28/2024: Unremarkable for acute osseous or joint pathology. Unremarkable for fracture or stress fracture changes. 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 Arthritic changes of the navicular-cuneiform joint as well. 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.[facility] N[facility]S HealthcareRadiology Study observation (narrative)[facility] HealthcareBasophils Auto (Bld) [#/Vol]on 85-42-4521Ezvnnorwl (Bld) [#/Vol]Automated basophil count 0.0-0.1FOhioHealth Mansfield HospitalBasophils (Bld) [#/Vol]0.1 10 3/uL 0.0-0.1FOhioHealth Mansfield HospitalBasophils/100 WBC Auto (Bld)on 16-26-2985Cmhqugnfu/100 WBC (Bld)Automated basophil %0.2-2.0[facility] TownshipBasophils/100 WBC (Bld)1.0 %0.2-2.0[facility] TownshipEosinophils/100 WBC Auto (Bld)on 29-08-5571Vyehpnyclyr/100 WBC (Bld) Automated eosinophil %0.9-7.0[facility] TownshipEosinophils/100 WBC (Bld)4.6 %0.9-7.0[facility] TownshipErythrocyte distribution width Auto (RBC) [Ratio]on 12-40-3423Wdcmklvtxmb distribution width (RBC) [Ratio]Erythrocyte distribution width [Ratio] by Automated ntgbuUzwn36.0-15.0 [facility] TownshipErythrocyte distribution width (RBC) [Ratio] 15.6 %High11.0-15.0[facility] TownshipEstimated glomerular filtration rate (GFR) non- Americanon 39-46-1029BDP/1.73 sq M.predicted among non-blacks MDRD (S/P/Bld) [Vol rate/Area]Estimated glomerular filtration rate (GFR) non- AmericanLow>=60 mL/min/1.73m [address] [place], [place] [address]GFR/1.73 sq M.predicted among non-blacks MDRD (S/P/Bld) [Vol rate/Area]32 mL/min/{1.73_m2}Low>=60 mL/min/1.[address]m [address] [place], [place] [address]Globulin Calc (S) [Mass/Vol]on 23-42-4021Kyzzyxww (S) [Mass/Vol]Serum globulin measurement by calculation (mass/volume)[facility] Globulin (S) [Mass/Vol]3.5 g/dLKettering Health Washington TownshipHematocrit Auto (Bld) [Volume fraction]on 30-40-0317Uguxeiiwug (Bld) [Volume fraction]Hematocrit [Volume Fraction] of Blood by Automated izzonLwe33.0-48.0[facility] TownshipHematocrit (Bld) [Volume fraction]33.6 %Low36.0-48.0[facility] TownshipHemoglobin [Mass/volume] in Bloodon 22-48-1736Fckhawpvdd (Bld) [Mass/Vol]Hemoglobin [Mass/volume] in HlvsgAbe88.0-16.0[facility] TownshipHemoglobin (Bld) [Mass/Vol]11.0 g/dLLow12.0-16.0[facility] TownshipLaboratory - Chemistry and Chemistry - challengeon 09-05-2024 Albumin [Mass/Vol]3.7 g/dL3.4-5.0[facility] TownshipALP [Catalytic activity/Vol]82 U/K07-284ZzpbpdnfzK[facility]tering Health Washington TownshipALT [Catalytic activity/Vol]20 U/R13-49TvydjesdxK[facility]tering Health Washington TownshipAST [Catalytic activity/Vol]21 U/Z76-57JwsbuuepeKettering Health Washington TownshipBilirubin [Mass/Vol]0.4 mg/dL0.2-1.0[facility] TownshipCalcium [Mass/Vol]9.5 mg/dL 8.5-10.1FOhioHealth Mansfield HospitalChloride [Moles/Vol]101 mmol/L98-107 [facility] TownshipCO2 [Moles/Vol]29.0 mmol/L21.0-32.0[facility] TownshipCobalamin (Vitamin B12) [Mass/Vol]491 pg/vQ287-9573 [facility] TownshipComment on above:Performed at: - [facility] [address] [id number] Director: Jerad Medina PhD, Phone: [phone] [Mass/Vol]1.58 mg/dLHigh0.55-1.02[facility] TownshipFerritin [Mass/Vol]45.0 ng/mL8.0-252.0[facility] TownshipGFR/1.73 sq M.predicted MDRD (S/P/Bld) [Vol rate/Area]39 mL/min/{1.73_m2} Low>=60 mL/min/1.73m 2FOhioHealth Mansfield HospitalGlucose [Mass/Vol]89 mg/oX12-421YtyovdoidK[facility]tering Health Washington TownshipPotassium [Moles/Vol]4.5 mmol/L 3.5-5.1FOhioHealth Mansfield HospitalProtein [Mass/Vol]7.2 g/dL6.4-8.2 [facility] Hospitalodium [Moles/Vol]139 mmol/Y748-581EakbuarjuKettering Health Washington TownshipTSH Qn3.165 m[IU]/L0.358-3.740[facility] TownshipUrea nitrogen [Mass/Vol]44.0 mg/dLHigh7.0-18.0[facility] TownshipUrea nitrogen/Creatinine [Mass ratio]27.8 mg/mgKettering Health Washington TownshipLaboratory - Hematology and Cell countson 43-93-6158Yazhnwlh granulocytes/100 WBC (Bld)0.2 %0.0-0.5FOhioHealth Mansfield Hospital Leukocytes [#/volume] corrected for nucleated erythrocytes in Blood by Automated counon 50-36-4952ZKZ corrected for nucl RBC Auto (Bld) [#/Vol]Leukocytes [#/volume] corrected for nucleated erythrocytes in Blood by Automated coun 4.0-11.0[facility] TownshipWBC corrected for nucl RBC Auto (Bld) [#/Vol]6.1 10 3/uL4.0-11.0[facility] TownshipLymphocytes Auto (Bld) [#/Vol]on 99-42-0654Cfnpsmeuzoo (Bld) [#/Vol]Lymphocytes [#/volume] in Blood by Automated count1.2-3.8[facility] TownshipLymphocytes (Bld) [#/Vol]1.5 10 3/uL1.2-3.8[facility] TownshipLymphocytes/100 WBC Auto (Bld)on 10-03-8594Eqrllqpchnk/100 WBC (Bld)Lymphocytes/100 leukocytes in Blood by Automated count20.5-60.0[facility] Lymphocytes/100 WBC (Bld)24.5 %20.5-60.0[facility] Auto (RBC) [Entitic mass]on 02-77-2633AOS (RBC) [Entitic mass]MCH [Entitic mass] by Automated count26.7-34.0[facility] (RBC) [Entitic mass]27.2 pg26.7-34.0[facility] CenterHC Auto (RBC) [Mass/Vol] on 76-33-1072KGWY (RBC) [Mass/Vol]MCHC [Mass/volume] by Automated count29.9-35.[address] [facility] CenterHC (RBC) [Mass/Vol]32.7 g/dL29.9-35.2 [facility] Auto (RBC) [Entitic vol]on 54-26-6122ZYG (RBC) [Entitic vol]MCV [Entitic volume] by Automated count81.0-99.0[facility] Medical CenterV (RBC) [Entitic vol]83.2 fL81.0-99.0[facility] TownshipMonocytes Auto (Bld) [#/Vol]on 34-64-8722Vrkbkyyck (Bld) [#/Vol] Automated blood monocyte count0.3-0.8[facility] TownshipMonocytes (Bld) [#/Vol]0.7 10 3/uL0.3-0.8[facility] TownshipMonocytes/100 WBC Auto (Bld)on 28-93-6309Cbxckbusg/100 WBC (Bld)Automated monocyte %1.7-12.0 [facility] TownshipMonocytes/100 WBC (Bld)11.7 %1.7-12.0[facility] TownshipNeutrophils Auto (Bld) [#/Vol]on 68-38-5020Njxxnwgtslz (Bld) [#/Vol]Neutrophils [#/volume] in Blood by Automated count1.4-6.5FOhioHealth Mansfield HospitalNeutrophils (Bld) [#/Vol]3.5 10 3/uL1.4-6.5FOhioHealth Mansfield HospitalNeutrophils/100 WBC Auto (Bld)on 09-05-2024 Neutrophils/100 WBC (Bld)Automated neutrophil %43.0-75.0[facility] TownshipNeutrophils/100 WBC (Bld)58.0 %43.0-75.0[facility] TownshipNo Panel Informationon 91-26-9422Ebjvdvrzjtn # (Auto)0.3 10 3/uL0.0-0.7 [facility] TownshipFolate16.50 ng/mL8.60-58.90[facility] TownshipImmature Granulocyte # (Auto)0.01 10 3/uL0.00-0.03[facility] TownshipPlatelet mean volume Auto (Bld) [Entitic vol]on 06-55-5148Zjxigecl mean volume (Bld) [Entitic vol]Platelet mean volume [Entitic volume] in Blood by Automated count9.5-13.5FOhioHealth Mansfield Hospital Platelet mean volume (Bld) [Entitic vol]10.2 fL9.5-13.5FOhioHealth Mansfield HospitalPlatelets Auto (Bld) [#/Vol]on 83-79-0377Uyqzinyhb (Bld) [#/Vol] Platelets [#/volume] in Blood by Automated biblp114-084IwxeuogfvKettering Health Washington TownshipPlatelets (Bld) [#/Vol]333 10 3/sF169-367CljudpgdoK[facility]tering Health Washington TownshipRBC Auto (Bld) [#/Vol]on 46-19-4891PRM (Bld) [#/Vol]Erythrocytes [#/volume] in Blood by Automated countLow4.20-5.40[facility] TownshipRBC (Bld) [#/Vol]4.04 10 6/uLLow4.20-5.40[facility] Serum or plasma albumin/globulin mass ratioon 05-82-4674Uphinka/Globulin [Mass ratio]Serum or plasma albumin/globulin mass ratioKettering Health Washington TownshipAlbumin/Globulin [Mass ratio]1.1 {ratio}[facility] Serum or plasma anion gap determinationon 93-85-6610Cbuch gap [Moles/Vol]Serum or plasma anion gap determinationKettering Health Washington TownshipAnion gap [Moles/Vol]13.5 mmol/LFOhioHealth Mansfield HospitalCBC W Auto Differential panel (Bld)on 97-18-5957Wwckrpznn (Bld) [#/Vol]0.06 10*3/uLNINFKettering Health Troy Basophils/100 WBC (Bld)0.8 %[facility] TroyDifferential cell count method Nom (Bld)AutoCleveland ClinicEosinophils (Bld) [#/Vol]0.4 10*3/uLNINFKettering Health TroyEosinophils/100 WBC (Bld)5.2 %[facility] TroyErythrocyte distribution width (RBC) [Ratio]15.7 %High11.5 - 15.0 %[facility] TroyHematocrit (Bld) [Volume fraction]34.2 %Low36.0 - 46.0 %[facility] TroyHemoglobin (Bld) [Mass/Vol]11.1 g/dLLow11.5 - 15.5 g/dLKettering Health TroyImmature granulocytes (Bld) [#/Vol]0.03 10*3/uLNISelect Medical Specialty Hospital - Southeast OhioImmature granulocytes/100 WBC (Bld) 0.4 %[facility] TroyInterpretation and review of laboratory resultsAbnormal [facility] TroyLymphocytes (Bld) [#/Vol]1.57 10*3/uLKettering Health Troy Lymphocytes/100 WBC (Bld)20.4 %Wilson HealthH (RBC) [Entitic mass]27.3 pg 26.0 - 34.0 pgClevelPhillips Eye InstituteHC (RBC) [Mass/Vol]32.5 g/dL30.5 - 36.0 g/dL Wilson HealthV (RBC) [Entitic vol]84 fL80.0 - 100.0 fLCParma Community General Hospital Monocytes (Bld) [#/Vol]0.75 10*3/uLNINFKettering Health TroyMonocytes/100 WBC (Bld) 9.7 %[facility] TroyNeutrophils (Bld) [#/Vol]4.9 10*3/uLKettering Health Troy Neutrophils/100 WBC (Bld)63.5 %[facility] TroyNucleated RBC (Bld) [#/Vol]NINF [facility] TroyNucleated RBC/100 WBC (Bld) [Ratio]0 %/100 WBCKettering Health Troy Platelet mean volume (Bld) [Entitic vol]9.7 fL9.0 - 12.7 fLClevelKindred Hospital Lima Platelets (Bld) [#/Vol]328 10*3/[facility] YoungstownRBC (Bld) [#/Vol]4.07 10*6/uL 3.90 - 5.20 m/[facility] - YoungstownWBC (Bld) [#/Vol]7.71 10*3/[facility] ClinicBasophils (Bld) [#/Vol]0.06 10*3/uLNormal<0.11CMercy Health St. [facility] on above:Order Comment: Specimen Type: BLOOD SPECIMEN Ordering Facility: [facility] Address: [address] [place], [place] [address]Performed By: #### 77163-0 #### [facility] CLIA [id number] [address] [place] [address] 02224Bqycymfar/100 WBC (Bld)0.8 %NormalWvumedicine Barnesville Hospital Comment on above:Order Comment: Specimen Type: BLOOD SPECIMEN Ordering Facility: [facility] Address: [address] [place], [place] [address]Performed By: #### 55216-0 #### [facility] CLIA [id number] [address] [place] [address] 68016Ycjovvnwbmny cell count method Nom (Bld)AutoNormalCMercy Health St. Rita's [facility] on above:Order Comment: Specimen Type: BLOOD SPECIMEN Ordering Facility: [facility] Address: [address] [place], [place] [address]Performed By: #### 91876-9 #### [facility] CLIA [id number] [address] [place], [place] [address]Lhxxgyjhuru (Bld) [#/Vol]0.40 10*3/uLNormal<0.46[facility] on above:Order Comment: Specimen Type: BLOOD SPECIMEN Ordering Facility: [facility] Address: [address] [place], [place] [address]Performed By: #### 48191-3 #### [facility] CLIA [id number] [facility] [place], [place] [address]Wknslqovhgf/100 WBC (Bld)5.2 %NormalWvumedicine Barnesville Hospital Comment on above:Order Comment: Specimen Type: BLOOD SPECIMEN Ordering Facility: [facility] Address: [address] [place], [place] [address]Performed By: #### 37498-7 #### [facility] CLIA [id number] [address] [place], [place] [address]Ddroqvmoijj distribution width (RBC) [Ratio]15.7 %High 11.5-15.0[facility] on above:Order Comment: Specimen Type: BLOOD SPECIMEN Ordering Facility: [facility] Address: [address] [place], [place] [address]Performed By: #### 63276-2 #### [facility] CLIA [id number] [address] [place] [address] 88714Npeeqoehfc (Bld) [Volume fraction]34.2 %Low36.0-46.0[facility] on above:Order Comment: Specimen Type: BLOOD SPECIMEN Ordering Facility: [facility] Address: [address] [place], [place] [address]Performed By: #### 62813-0 #### [facility] CLIA [id number] [address] [place] [address] 84[address]Ricygareic (Bld) [Mass/Vol]11.1 g/dLLow11.5-15.5CMercy Health St. [facility] on above:Order Comment: Specimen Type: BLOOD SPECIMEN Ordering Facility: [facility] Address: [address] [place], [place] [address]Performed By: #### 81108-8 #### [facility] CLIA [id number] [address] [place] [address] 16039Roupbojp granulocytes (Bld) [#/Vol]0.03 10*3/uLNormal<0.10 [facility] on above:Order Comment: Specimen Type: BLOOD SPECIMEN Ordering Facility: [facility] Address: [address] [place], [place] [address]Performed By: #### 71303-1 #### [facility] CLIA [id number] [address] [place], [place] [address]Aqygghem granulocytes/100 WBC (Bld)0.4 %NormalMemorial Health System Selby General Hospital on above:Order Comment: Specimen Type: BLOOD SPECIMEN Ordering Facility: [facility] Address: [address] [place], [place] [address]Performed By: #### 30834-2 #### [facility] CLIA [id number] [address] [place] [address] 98189Deblscdtgzb (Bld) [#/Vol]1.57 10*3/uLNormal1.00-4.00[facility] on above:Order Comment: Specimen Type: BLOOD SPECIMEN Ordering Facility: [facility] Address: [address] [place], [place] [address]Performed By: #### 60860-1 #### [facility] CLIA [id number] [address] [place] [address] 067[address]Cdphetszwce/100 WBC (Bld)20.4 %NormalMemorial Health System Selby General Hospital on above:Order Comment: Specimen Type: BLOOD SPECIMEN Ordering Facility: [facility] Address: [address] [place], [place] [address]Performed By: #### 10787-9 #### [facility] CLIA [id number] [address] [place] [address] 07638OSF (RBC) [Entitic mass]27.3 fdVbedoq14.0-34.0[facility] on above:Order Comment: Specimen Type: BLOOD SPECIMEN Ordering Facility: [facility] Address: [address] [place], [place] [address]Performed By: #### 70357-0 #### [facility] CLIA [id number] [address] [place], [place] [address]VYMJ (RBC) [Mass/Vol]32.5 g/sPKxuzss34.5-36.0[facility] on above:Order Comment: Specimen Type: BLOOD SPECIMEN Ordering Facility: [facility] Address: [address] [place], [place] [address]Performed By: #### 61511-7 #### [facility] CLIA [id number] [address] [place] [address] 93461PPK (RBC) [Entitic vol]84.0 yLKwpava82.0-100.0[facility] on above:Order Comment: Specimen Type: BLOOD SPECIMEN Ordering Facility: [facility] Address: [address] [place], [place] [address]Performed By: #### 00269-1 #### [facility] CLIA [id number] [address] [place] [address] 24103Yemvjfgcn (Bld) [#/Vol]0.75 10*3/uLNormal<0.87[facility] on above:Order Comment: Specimen Type: BLOOD SPECIMEN Ordering Facility: [facility] Address: [address] [place], [place] [address]Performed By: #### 38848-4 #### [facility] CLIA [id number] [address] [place] [address] 30598Bibzxkopf/100 WBC (Bld)9.7 %NormalWvumedicine Barnesville Hospital Comment on above:Order Comment: Specimen Type: BLOOD SPECIMEN Ordering Facility: [facility] Address: [address] [place], [place] [address]Performed By: #### 46219-8 #### [facility] CLIA [id number] [address] [place] [address] 10511Atpqmjsvmbd (Bld) [#/Vol]4.90 10*3/uLNormal1.45-7.50[facility] on above:Order Comment: Specimen Type: BLOOD SPECIMEN Ordering Facility: [facility] Address: [address] [place], [place] [address]Performed By: #### 23430-6 #### [facility] CLIA [id number] [address] [place], [place] [address]Cjvqzhlwspy/100 WBC (Bld)63.5 %NormalMemorial Health System Selby General Hospital on above:Order Comment: Specimen Type: BLOOD SPECIMEN Ordering Facility: [facility] Address: [address] [place], [place] [address]Performed By: #### 41259-8 #### [facility] CLIA [id number] [address] [place], [place] [address]Tezbmgeyn RBC (Bld) [#/Vol]10*3/uLNormal<0.01[facility] on above:Order Comment: Specimen Type: BLOOD SPECIMEN Ordering Facility: [facility] Address: [address] [place], [place] [address]Performed By: #### 37659-3 #### [facility] CLIA [id number] [address] [place] [address] 79[address]Xleiwhbtb RBC/100 WBC (Bld) [Ratio]0.0 /[address] [facility] on above:Order Comment: Specimen Type: BLOOD SPECIMEN Ordering Facility: [facility] Address: [address] [place], [place] [address]Performed By: #### 13122-4 #### [facility] CLIA [id number] [address] [place] [address] 39535Vgcamxfq mean volume (Bld) [Entitic vol]9.7 fLNormal9.0-12.7 [facility] on above:Order Comment: Specimen Type: BLOOD SPECIMEN Ordering Facility: [facility] Address: [address] [place], [place] [address]Performed By: #### 68473-4 #### [facility] CLIA [id number] [address] [place] [address] 32822Fzxfkeowa (Bld) [#/Vol]328 10*3/kPYujxti687-413DxrfxoczrMemorial Health System [facility] on above:Order Comment: Specimen Type: BLOOD SPECIMEN Ordering Facility: [facility] Address: [address] [place], [place] [address]Ebpvnlnbr By: #### 09667-9 #### [facility] CLIA [id number] [address] [place], [place] [address]NKM (Bld) [#/Vol]4.07 10*6/uLNormal3.90-5.20[facility] on above:Order Comment: Specimen Type: BLOOD SPECIMEN Ordering Facility: [facility] Address: [address] [place] [address]Rvfqpqidx By: #### 85703-5 #### [facility] CLIA [id number] [address] [place], [place] [address]MUK (Bld) [#/Vol]7.71 10*3/uLNormal3.70-11.00[facility] on above:Order Comment: Specimen Type: BLOOD SPECIMEN Ordering Facility: [facility] Address: [address] [place] [address]Mputnszur By: #### 51850-3 #### [facility] CLIA [id number] [address] [place], [place] [address]ZDJHULmn 47-72-6729FBBKXUGbuky (SP) Office (HEMASA) BRAYDENRENUKA Dey ([id number]) 1950 F Date Time Provider Department 08/21/24 [...] without masses or skin (more content not included)...NormalWayne Hospitalprehensentara [facility] metabolic 2000 panelOrdered By: Marianela Chavarria on 31-20-5016Azqraye [Mass/Vol]4.1 g/dL3.9 - 4.9 g/dLSan Antonio ClinicALP [Catalytic activity/Vol]84 U/L34 - 123 U/LCleveland ClinicALT [Catalytic activity/Vol]11 U/L7 - 38 U/LCleveland ClinicAnion gap [Moles/Vol]12 mmol/L8 - 15 mmol/L [facility] ClinicAST [Catalytic activity/Vol]20 U/L13 - 35 U/LC[facility] Bilirubin [Mass/Vol]0.4 mg/dL0.2 - 1.3 mg/dLSan Antonio ClinicCalcium [Mass/Vol] 10.1 mg/dL8.5 - 10.2 mg/dLSan Antonio ClinicChloride [Moles/Vol]104 mmol/L98 - 107 mmol/LCleveland ClinicCO2 [Moles/Vol]25 mmol/L22 - 30 mmol/LC[facility] Clinic Creatinine [Mass/Vol]1.33 mg/dLHigh0.58 - 0.96 mg/dLKettering Health TroyGFR/1.73 sq M.predicted among non-blacks MDRD (S/P/Bld) [Vol [...] eGFRmay not accurately reflect actual GFR.Glucose [Mass/Vol]104 mg/oRZqrr02 - 99 mg/dLKettering Health Troy Comment on above:The [place] [employer] (ADA) provides guidance for cutoff [...] Standards of Medical Care in Diabetes 2016, [place] [employer]. Diabetes Care. 2016.39(Suppl 1). Interpretation and review of laboratory resultsAbnormalCleveland ClinicPotassium [Moles/Vol]4.8 mmol/L3.7 - 5.1 mmol/LCmercy health ClinicProtein [Mass/Vol]6.9 g/dL 6.3 - 8.0 g/dLSan Antonio ClinicSodium [Moles/Vol]141 mmol/L136 - 144 mmol/L [facility] TroyUrea nitrogen [Mass/Vol]61 mg/dLHigh7 - 21 mg/dLPremier Health Miami Valley Hospitalprehensive metabolic 2000 panelon 50-15-8051Qqiogex [Mass/Vol]4.1 g/dLNormal3.9-4.9CMercy Health St[facility] on above:Order Comment: Specimen Type: BLOOD SPECIMEN Ordering Facility: [facility] Address: [address] [place], [place] [address]Performed By: #### 47660-2 #### [facility] CLIA [id number] [address] [place] [address] 88477ABD [Catalytic activity/Vol]84 U/SCghwpu88-858OllmdeoxnMemorial Health System [facility] on above:Order Comment: Specimen Type: BLOOD SPECIMEN Ordering Facility: [facility] Address: [address] [place], [place] [address]Performed By: #### 13173-0 #### [facility] CLIA [id number] [address] [place] [address] 45943BRJ [Catalytic activity/Vol]11 U/LNormal7-38[facility] on above:Order Comment: Specimen Type: BLOOD SPECIMEN Ordering Facility: [facility] Address: [address] [place], [place] [address]Performed By: #### 53414-0 #### [facility] CLIA [id number] [address] [place], [place] [address]Dcnsl gap [Moles/Vol]12 mmol/LNormal8-15[facility] on above:Order Comment: Specimen Type: BLOOD SPECIMEN Ordering Facility: [facility] Address: [address] [place], [place] [address]Performed By: #### 00730-9 #### [facility] CLIA [id number] [address] [place], [place] [address]BMO [Catalytic activity/Vol]20 U/NYmfdwk96-81DlaykfqiaMemorial Health System [facility] on above:Order Comment: Specimen Type: BLOOD SPECIMEN Ordering [facility] Address: [address] [place], [place] [address]Performed By: #### 76147-2 #### [facility] CLIA [id number] [address] [place], [place] [address]Nlnuygknu [Mass/Vol]0.4 mg/dLNormal0.2-1.3CMercy Health St. [facility] on above:Order Comment: Specimen Type: BLOOD SPECIMEN Ordering [facility] Address: [address] [place], [place] [address]Performed By: #### 29089-3 #### [facility] CLIA [id number] [address] [place], [place] [address]Awrodjn [Mass/Vol]10.1 mg/dLNormal8.5-10.2CMercy Health St. [facility] on above:Order Comment: Specimen Type: BLOOD SPECIMEN [facility] Address: [address] [place], [place] [address]Performed By: #### 09911-8 #### [facility] CLIA [id number] [address] [place], [place] [address]Rixgcwci [Moles/Vol]104 mmol/MKoykbd08-351NahapwrumMemorial Health System [facility] on above:Order Comment: Specimen Type: BLOOD SPECIMEN Ordering [facility] Address: [address] [place], [place] [address]Performed By: #### 12287-0 #### [facility] CLIA [id number] [address] [place], [place] [address]SI8 [Moles/Vol]25 mmol/ALfumae53-51BgaevgcepWvumedicine Barnesville Hospital Comment on above:Order Comment: Specimen Type: BLOOD SPECIMEN Ordering Facility[facility] Address: [address] [place], [place] [address]Performed By: #### 83772-5 #### [facility] CLIA [id number] [address] [place], [place] [address]Fbbgehboct [Mass/Vol]1.33 mg/dLHigh0.58-0.96Wvumedicine Barnesville HospitalComment on above:Order Comment: Specimen Type: BLOOD SPECIMEN Order[facility] Address: [address] [place], [place] [address]Performed By: #### [id number] #### [facility] CLIA [id number] [address] [place], [place] [address]Zkfydmkuth and Glomerular filtration rate.predicted panel (S/P/Bld)42 mL/min/1.73m???Low>=60[facility] HospitalComment on above: Order Comment: Specimen Type: BLOOD SPECIMEN Ordering Facility: [facility] Address: [address] [place], [place] [id number] Comment: Estimated Glomerular Filtration Rate (eGFR) is [...] not accurately reflect actual GFR.Performed By: #### [id number] #### [facility] CLIA [id number] [address] [place] [id number] [Mass/Vol]104 mg/yXTiyc11-50SwlugplbfWvumedicine [facility] Hospital Comment on above:Order Comment: Specimen Type: BLOOD SPECIMEN Ordering Facility: [facility] Address: [address] [place] [id number] Comment: The [place] [employer] (ADA) provides guidance for cutoff [...] Standards of Medical Care in Diabetes 2016, [place] [employer]. Diabetes Care. 2016.39(Suppl 1).Performed By: #### [id number] #### [facility] CLIA [id number] [address] [place], [place] [address]Fptfsbrfm [Moles/Vol]4.8 mmol/LNormal3.7-5.1CMer[facility] on above:Order Comment: Specimen Type: BLOOD SPECIMEN Ordering Facility: [facility] Address: [address] [place], [place] [address]Performed By: #### 62917-8 #### [facility] CLIA [id number] [address] [place] [address] 36[address]Fypmjma [Mass/Vol]6.9 g/dLNormal6.3-8.0[facility] on above:Order Comment: Specimen Type: BLOOD SPECIMEN Ordering Facility: [facility] Address: [address] [place], [place] [address]Performed By: #### 34672-5 #### [facility] CLIA [id number] [address] [place] [address]Hlrdhr [Moles/Vol]141 mmol/HXkvntq178-518GswzjuwiqMemorial Health System [facility] on above:Order Comment: Specimen Type: BLOOD SPECIMEN Ordering Facility: [facility] Address: [address] [place], [place] [address]Performed By: #### 04714-5 #### [facility] CLIA [id number] [address] [place], [place] [address]Ibyp nitrogen [Mass/Vol]61 mg/dLHigh7-21[facility] on above:Order Comment: Specimen Type: BLOOD SPECIMEN Ordering Facility: [facility] Address: [address] [place] [id number] By: #### 45324-7 #### [facility] CLIA [id number] [address] [place], [place] [address]W-vqi reportOrdered By: Saman Vo on 36-38-5480Rvkpl reportPREMIER [facility] [place] [facility] [address] [place] [address] XRay Report Signed Patient: Renuka Owen MR#: [id number] : 1950 Acct:[id number] Age/Sex: 73 / F ADM Date: 5 Loc: [facility] Room: Type: [facility] Attending Dr: Emory Cole II, MD Copies to: Emory Cole MD~ Ordering Provider: Emory Cole MD Date of Service: 06/29/24 XR/XR knee LT 3V - NOT FOR ER USE: Z96.652 - Presenceof left artificial knee joint ([id number]) XR/XR pelvis 1-2V: Z96.652 - Presence of [...] Vo Jr., D.ORadha06/29/2024 10:50 AM Dictation Location: [place] [address] Transcribed By: [facility] 06/29/24 1050 Dictated By: Saman Vo Jr, DO 06/29/24 1048 Signed By: 06/29/24 1050 [facility] TownshipXR knee LT 3V - NOT FOR ER USEon 13-98-3587RV knee LT 3V - NOT FOR ER USENoNovant Health Rehabilitation Hospital Physician [facility] HospitalBasic Metabolic Panelon 16-85-5196Nxmww gap [Moles/Vol]12.6 mmol/LNormal6.0-15.0[facility] HospitalComment on above:Performed By: #### BMP, MG ####[place] [address] [place] [address] USACalcium [Mass/Vol]8.7 mg/dLNormal8.6-10.3The [facility] Physician GroupComment on above:Performed By: #### BMP, MG ####[place] [address] [place] [address] USAChloride [Moles/Vol]107 mmol/WHirskp50-142Dgo [facility] Phys[facility] Comment on above:Performed By: #### BMP, MG ####[place] [address] [place] [address] USACO2 [Moles/Vol]23.8 mmol/LNormal 21.0-31.0The [facility] Physician GroupComment on above:Performed By: #### BMP, MG ####[address] [address] [place] Creatinine [Mass/Vol]1.23 mg/dLHigh0.60-1.20[facility] Phys[facility] HospitalComment on above:Performed By: #### BMP, MG ####[address] [address] USACreatinine Clr Calc Ctjdgbui83.03NoNovant Health Rehabilitation Hospital Physician [facility] HospitalComment on above:Result Comment: PERFORMED BY:[address] [place], [place] [phone] MEDICAL DIRECTORLLOYD NICHOLSON M.D.Performed By: #### BMP, MG ####[address] [address] [place] Estimated GFR46.113 mL/MinNoNovant Health Rehabilitation Hospital Physician [facility] HospitalComment on above: Performed By: #### BMP, MG ####[place] [address] [place] [address] USAGlucose [Mass/Vol]86 mg/bAQilymc48-235Xgt [facility] Physician GroupComment on above:Result Comment: Random Glucose Reference Range is dependent on time and content of last meal. Glucose of more than 200 mg/dL in a nonstressed, ambulatory subject supports the diagnosis of Diabetes Mellitus. ADA recommended reference rangePerformed By: #### BMP, MG ####[facility] [address] [place] [address] USAPotassium [Moles/Vol]3.4 mmol/LLow3.5-5.1The [facility] Physician GroupComment on above:Performed By: #### BMP, MG ####[facility] [address] [place] [address] USASodium [Moles/Vol]140 mmol/ELddukf361-157Pai [facility] Physician [facility] HospitalComment on above:Performed By: #### BMP, MG ####[facility] [address] [place] [address] USAUrea nitrogen [Mass/Vol]29 mg/dLHigh7-25The [facility] Physician GroupComment on above:Performed By: #### BMP, MG ####[facility] [address] [place] [address] USACalcium [Mass/volume] in Serum or PlasmaOrdered By: Isaiah Mejia on 62-74-1606Dazhmrt [Mass/Vol]Calcium [Mass/volume] in Serum or Plasma8.6-10.3FOhioHealth Mansfield HospitalCarbon dioxide, total [Moles/volume] in Serum or PlasmaOrdered By: Isaiah Mejia on 44-59-5028JF7 [Moles/Vol]Carbon dioxide, total [Moles/volume] in Serum or Qstdmh43.0-31.0[facility] TownshipChloride [Moles/volume] in Serum or PlasmaOrdered By: Isaiah Mejia on 06-05-2024 Chloride [Moles/Vol]Chloride [Moles/volume] in Serum or Nuqcxi31-316CndbrsritKettering Health Washington TownshipCreatinine [Mass/volume] in Serum or PlasmaOrdered By: Isaiah Mejia on 15-13-2691Ykvgrdgzfs [Mass/Vol]Creatinine [Mass/volume] in Serum or PlasmaHigh0.60-1.20[facility] TownshipGlucose [Mass/volume] in Serum or PlasmaOrdered By: Isaiah Mejia on 23-96-9483Tzgcjdj [Mass/Vol]Glucose [Mass/volume] in Serum or Mgoorg20-742WwnpmodrqKettering Health Washington TownshipComment on above:ADA recommended reference rangeRandom Glucose Reference Range is dependent on time and content of last meal. Glucose of more than 200 mg/dL in a nonstressed, ambulatory subject supports the diagnosisof Diabetes Mellitus.Magnesiumon 89-95-5954Rrwffiqhy [Mass/Vol]1.7 mg/dLLow1.9-2.7 The [facility] Physician GroupComment on above:Result Comment: PERFORMED BY:[facility]KS[address] [place], [place] [phone] MEDICAL DIRECTORLLOYD NICHOLSON M.D.Performed By: #### BMP, MG ####[facility] [place] [address] USAMagnesium [Mass/volume] in Serum or PlasmaOrdered By: Sherin Arellano on 67-49-8961Skpkttagw [Mass/Vol]Magnesium [Mass/volume] in Serum or PlasmaLow 1.9-2.7FOhioHealth Mansfield HospitalNo Panel InformationOrdered By: Isaiah Mejia on 74-18-4530Sxpvoyjit GFR (CKD-EPI)46.113 mL/MinKettering Health Washington TownshipPharmacy Creatinine Clearance (Chem37.03[facility] TownshipPotassium [Moles/volume] in Serum or PlasmaOrdered By: Isaiah Mejia on 50-32-4236Vvihstazk [Moles/Vol]Potassium [Moles/volume] in Serum or PlasmaLow 3.5-5.1FSelect Medical Specialty Hospital - Cleveland-Fairhillerum or plasma anion gap determination Ordered By: Isaiah Mejia on 24-77-0324Cjxwe gap [Moles/Vol]Serum or plasma anion gap determination6.0-15.0[facility]acon[facility] Hospitalodium [Moles/volume] in Serum or PlasmaOrdered By: Isaiah Mejia on 35-42-7721Honwdx [Moles/Vol]Sodium [Moles/volume] in Serum or Qvrkqd048-098ZtzbnyodwKettering Health Washington TownshipUrea nitrogen [Mass/volume] in Serum or PlasmaOrdered By: Isaiah Mejia on 19-23-3969Xvgq nitrogen [Mass/Vol]Urea nitrogen [Mass/volume] in Serum or PlasmaHigh7-25[facility] TownshipBasic Metabolic Panelon 49-90-0753Exzic gap [Moles/Vol]10.2 mmol/LNormal6.0-15.0[facility] Physician [facility] HospitalComment on above:Performed By: #### BMP ####[address] [address] USACalcium [Mass/Vol]9.0 mg/dLSignificant change down8.6-10.3[facility] Physician [facility] HospitalComment on above:Performed By: #### BMP ####[address] [address] USAChloride [Moles/Vol]110 mmol/DNxjj17-512Zlx [facility] Physician [facility] HospitalComment on above:Performed By: #### BMP ####[address] [address] USACO2 [Moles/Vol]24.6 mmol/VMznaoh99.0-31.0[facility] Physician [facility] HospitalComment on above:Performed By: #### BMP ####[address] [address] USACreatinine [Mass/Vol] 1.21 mg/dLHigh0.60-1.20[facility] Physician [facility] HospitalComment on above:Performed By: #### BMP ####[address] [address] USACreatinine Clr Calc Ueikodwb11.46NormalThValor Health Physician [facility] Comment on above:Result Comment: PERFORMED BY:[place] [address] [address] [place], [place] [phone] MEDICAL DIRECTORLLOYD NICHOLSON M.D.Performed By: #### BMP ####[address] [address] USAEstimated GFR47.029 mL/Min NormalThe Atrium Health Physician GroupComment on above:Performed By: #### BMP ####[address] [address] USAGlucose [Mass/Vol]95 mg/vPXqodcn20-257Ufd [facility] Physician GroupComment on above: Result Comment: Random Glucose Reference Range is dependent on time and content of last meal. Glucose of more than 200 mg/dL in a nonstressed, ambulatory subject supports the diagnosis of Diabetes Mellitus. ADA recommended reference rangePerformed By: #### BMP ####[address] [place] [address] USAPotassium [Moles/Vol]3.8 mmol/LNormal3.5-5.1The [facility] Physician GroupComment on above:Performed By: #### BMP ####[address] [address] USASodium [Moles/Vol]141 mmol/ESlkhnl494-973Izg [facility] Physician GroupComment on above:Performed By: #### BMP ####[address] [address] USAUrea nitrogen [Mass/Vol]31 mg/dLHigh7-25The [facility] Physician GroupComment on above:Performed By: #### BMP ####[address] [address] USABasic Metabolic Panelon 44-91-2469Ijdlt gap [Moles/Vol]10.7 mmol/LNormal6.0-15.0The [facility] Physician GroupComment on above:Performed By: #### BMP, MG ####[address] [address] USACalcium [Mass/Vol]7.4 mg/dLLow8.6-10.3The [facility] Physician GroupComment on above:Performed By: #### BMP, MG ####[address] [address] USAChloride [Moles/Vol] 115 mmol/ASwui64-053Nxd [facility] Physician GroupComment on above:Performed By: #### BMP, MG ####[address] [place] [address] USACO2 [Moles/Vol]21.3 mmol/DWssjzy60.0-31.0[facility] Comment on above:Performed By: #### BMP, MG ####[address] [address] USACreatinine [Mass/Vol]1.03 mg/dL Significant change down0.60-1.20The [facility] Physician GroupComment on above: Performed By: #### BMP, MG ####[address] [address] USACreatinine Clr Calc Birwtdbz80.07NormCleveland Clinic Martin [facility] Physician [facility] HospitalComment on above:Result Comment: PERFORMED BY:[place] [address] [address] [place], [place] [phone] MEDICAL DIRECTORLLOYD NICHOLSON M.D.Performed By: #### BMP, MG ####[address] [address] USAEstimated GFR57.057 mL/MinNormCleveland Clinic [facility] Hospital Physician [facility] HospitalComment on above:Performed By: #### BMP, MG ####[address] [address] USAGlucose [Mass/Vol]99 mg/aZPfhsxk84-625Ixz [facility] Physician GroupComment on above:Result Comment: Random Glucose Reference Range is dependent on time and content of last meal. Glucose of more than 200 mg/dL in a nonstressed, ambulatory subject supports the diagnosis of Diabetes Mellitus. ADA recommended reference rangePerformed By: #### BMP, MG ####[address] [address] USAPotassium [Moles/Vol]3.0 mmol/LLow3.5-5.1The [facility] Physician GroupComment on above:Performed By: #### BMP, MG ####[address] [address] USASodium [Moles/Vol]144 mmol/VThithz046-156Zcb [facility] Physician GroupComment on above: Performed By: #### BMP, MG ####[place] [address] USAUrea nitrogen [Mass/Vol]42 mg/dLSignificant change up [facility] Physician GroupComment on above:Performed By: #### BMP, MG ####[place] [address] [place] Basophils Auto (Bld) [#/Vol]Ordered By: Isaiah Mejia on 10-00-2818Afmhsmfme (Bld) [#/Vol]Automated basophil count0.0-0.2FOhioHealth Mansfield Hospital Basophils/100 WBC Auto (Bld)Ordered By: Isaiah Mejia on 06-03-2024 Basophils/100 WBC (Bld)Automated basophil %.[facility] Complete Blood Count Auto Diffon 97-57-7421Hygfoyytt (Bld) [#/Vol]0.1 10*3/uL Normal0.0-0.2The [facility] Physician GroupComment on above:Result Comment: PERFORMED BY:[address] [place]HISHEKGaloEAG[place], [place] [phone] MEDICAL DIRECTORLLOYD NICHOLSON M.D. Performed By: #### CBC ####[place] [address] USABasophils/100 WBC (Bld)1.0 %Normal.The [facility] Physician GroupComment on above:Performed By: #### CBC ####[place] [address] USAEosinophils (Bld) [#/Vol]0.3 10*3/uLNormal0.0-0.45The [facility] Physician GroupComment on above:Performed By: #### CBC ####[place] [address] USAEosinophils/100 WBC (Bld)4.2 %Normal.The [facility] Physician GroupComment on above:Performed By: #### CBC ####[place] [address] USAErythrocyte distribution width (RBC) [Ratio]14.0 % Pbrppp13.9-15.3The [facility] Physician GroupComment on above:Performed By: #### CBC ####[address] Hematocrit (Bld) [Volume fraction]27.8 %Low34.0-46.4The [facility] Physician GroupComment on above:Performed By: #### CBC ####[place] [address] USAHemoglobin (Bld) [Mass/Vol]9.2 g/dLLow 11.8-15.4The [facility] Physician GroupComment on above:Performed By: #### CBC ####[address] Lymphocytes (Bld) [#/Vol]0.9 10*3/uLLow1.00-4.8The [facility] Comment on above:Performed By: #### CBC ####[place] [address] USALymphocytes/100 WBC (Bld)12.0 %Normal.The [facility] Physician GroupComment on above:Performed By: #### CBC ####[address] StreetMCH (RBC) [Entitic mass]28.9 xgUkwrno05.7-34.3The [facility] Physician GroupComment on above: Performed By: #### CBC ####[address] StreetMCV (RBC) [Entitic vol]87.1 oGDppayv51-303Ngo [facility] Physician [facility] HospitalComment on above:Performed By: #### CBC ####[place] [address] USAMean Corpuscular HGB Conc33.2 g/mARqegvk87.0-35.0The [facility] Physician GroupComment on above: Performed By: #### CBC ####[place] [address] USAMonocytes (Bld) [#/Vol]0.7 10*3/uLNormal0.0-0.8The [facility] Physician GroupComment on above:Performed By: #### CBC ####[place] [address] USAMonocytes/100 WBC (Bld)9.8 %Normal.The [facility] Physician GroupComment on above:Performed By: #### CBC ####[place] [address] USANeutrophils (Bld) [#/Vol]5.5 10*3/uLNormal1.8-7.7The [facility] Physician GroupComment on above:Performed By: #### CBC ####[place] [address] USANeutrophils/100 WBC (Bld)73.0 %Normal. The [facility] Physician GroupComment on above:Performed By: #### CBC ####[place] [address] USANRBC% 0.1 /100{WBC}Normal0-0.5The [facility] Physician GroupComment on above:Performed By: #### CBC ####[place] [address] USAPlatelet mean volume (Bld) [Entitic vol]8.4 fLNormal6.3-10.7The [facility] Physician GroupComment on above:Performed By: #### CBC ####[place] [address] USAPlatelets (Bld) [#/Vol]226 10*3/lQBijbpm696-415Mse [facility] Physician GroupComment on above: Performed By: #### CBC ####[place] [address] USARBC (Bld) [#/Vol]3.19 10*6/uLLow3.60-5.00The [facility] Physician GroupComment on above:Performed By: #### CBC ####[place] [address] USAWBC (Bld) [#/Vol]7.5 10*3/uLNormal3.8-11.6The [facility] Physician GroupComment on above:Performed By: #### CBC ####[facility] [address] [place] [address] USAEosinophils Auto (Bld) [#/Vol]Ordered By: Isaiah Mejia on 06-03-2024 Eosinophils (Bld) [#/Vol]Automated eosinophil count0.0-0.45[facility] TownshipEosinophils/100 WBC Auto (Bld)Ordered By: Isaiah Mejia on 08-60-0822Rsmojsxaszj/100 WBC (Bld)Automated eosinophil %.[facility] TownshipErythrocyte distribution width Auto (RBC) [Ratio]Ordered By: Isaiah Mejia on 91-24-4083Fetgyauqtvp distribution width (RBC) [Ratio] Erythrocyte distribution width [Ratio] by Automated count11.9-15.3FOhioHealth Mansfield HospitalHematocrit Auto (Bld) [Volume fraction]Ordered By: Isaiah Mejia on 29-51-8026Zvkcldxtqf (Bld) [Volume fraction]Hematocrit [Volume Fraction] of Blood by Automated mhcagLid69.0-46.4FOhioHealth Mansfield HospitalHemoglobin [Mass/volume] in BloodOrdered By: Isaiah Mejia on 06-03-2024 Hemoglobin (Bld) [Mass/Vol]Hemoglobin [Mass/volume] in GckjuYsn86.8-15.4 [facility] TownshipLeukocytes [#/volume] corrected for nucleated erythrocytes in Blood by Automated counOrdered By: Isaiah Mejia on 06-03-2024 WBC corrected for nucl RBC Auto (Bld) [#/Vol]Leukocytes [#/volume] corrected for nucleated erythrocytes in Blood by Automated coun3.8-11.6FOhioHealth Mansfield HospitalLymphocytes Auto (Bld) [#/Vol]Ordered By: Isaiah Mejia on 82-71-0501Nqdqburbrxb (Bld) [#/Vol]Lymphocytes [#/volume] in Blood by Automated countLow1.00-4.8[facility] TownshipLymphocytes/100 WBC Auto (Bld) Ordered By: Isaiah Mejia on 58-75-8476Tenxcuzgmfa/100 WBC (Bld)Lymphocytes/100 leukocytes in Blood by Automated count.[facility] CenterH Auto (RBC) [Entitic mass]Ordered By: Isaiah Mejia on 42-55-1005UYI (RBC) [Entitic mass]MCH [Entitic mass] by Automated count24.7-34.3FOhioHealth Mansfield HospitalMCHC Auto (RBC) [Mass/Vol]Ordered By: Isaiah Mejia on 06-03-2024 MCHC (RBC) [Mass/Vol]MCHC [Mass/volume] by Automated count32.0-35.0[facility] Medical CenterV Auto (RBC) [Entitic vol]Ordered By: Isaiah Mejia on 11-65-6297XJH (RBC) [Entitic vol]MCV [Entitic volume] by Automated bseoo23-936 [facility] TownshipMagnesiumon 18-28-5229Mngmklwnq [Mass/Vol]1.9 mg/dLSignificant change down1.9-2.7The [facility] Physician GroupComment on above:Result Comment: PERFORMED BY:[facility]111[facility] SYSTEMCHRISTINE BROOKSBROKEN [place], [place] [phone] MEDICAL DIRECTORLLOYD YANEZ M.D.Performed By: #### BMP, MG ####[facility] [place] [address] USAMonocytes Auto (Bld) [#/Vol]Ordered By: Isaiah Mejia on 00-85-7731Knsritsyx (Bld) [#/Vol]Automated blood monocyte count0.0-0.8[facility] TownshipMonocytes/100 WBC Auto (Bld)Ordered By: Isaiah Mejia on 56-16-4960Zqnqpjign/100 WBC (Bld)Automated monocyte %. [facility] TownshipNeutrophils Auto (Bld) [#/Vol]Ordered By: Isaiah Mejia on 13-87-8771Imyymsgxfqm (Bld) [#/Vol]Neutrophils [#/volume] in Blood by Automated count1.8-7.7FOhioHealth Mansfield HospitalNeutrophils/100 WBC Auto (Bld)Ordered By: Isaiah Mejia on 74-43-7163Exltlfjpxfg/100 WBC (Bld) Automated neutrophil %.[facility] TownshipNucleated erythrocytes [Presence] in Blood by Automated countOrdered By: Isaiah Mejia on 06-03-2024 Nucleated RBC Auto Ql (Bld)Nucleated erythrocytes [Presence] in Blood by Automated count0-0.5FOhioHealth Mansfield HospitalPlatelet mean volume Auto (Bld) [Entitic vol]Ordered By: Isaiah Mejia on 18-17-7046Dpamooot mean volume (Bld) [Entitic vol]Platelet mean volume [Entitic volume] in Blood by Automated count6.3-10.7FOhioHealth Mansfield HospitalPlatelets Auto (Bld) [#/Vol] Ordered By: Isaiah Mejia on 98-31-2380Afssxotli (Bld) [#/Vol]Platelets [#/volume] in Blood by Automated ejaka029-832VlhcdngcdKettering Health Washington Township RBC Auto (Bld) [#/Vol]Ordered By: Isaiah Mejia on 11-20-3799YSG (Bld) [#/Vol] Erythrocytes [#/volume] in Blood by Automated countLow3.60-5.00[facility] TownshipUS renal BIon 63-03-2588NG renal BINormalThe [facility] Health Physician GroupWBC Auto (Bld) [#/Vol]Ordered By: Isaiah Mejia on 60-09-0453CTM (Bld) [#/Vol]Leukocytes [#/volume] in Blood by Automated count3.8-11.6FOhioHealth Mansfield HospitalB-Type Natriuretic Peptideon 67-52-9840Ykohxfmxysi peptide B (Bld) [Mass/Vol]228.0 pg/mLHigh5-100The [facility] Comment on above:Result Comment: PERFORMED BY:[facility], [place] [phone] MEDICAL DIRECTORLLOYD NICHOLSON M.D.Performed By: #### BNP, BMP, CBC ####[facility] [place] [address] USABasic Metabolic Panelon 78-62-5356Kayep gap [Moles/Vol]11.3 mmol/LNormal6.0-15.0[facility] Physician [facility] HospitalComment on above:Performed By: #### BNP, BMP, CBC ####[place] [address] USACalcium [Mass/Vol]8.7 mg/dLSignificant change down8.6-10.3[facility] Comment on above:Performed By: #### BNP, BMP, CBC ####[place] [address] USAChloride [Moles/Vol]103 mmol/LNormal 98-107The [facility] Physician [facility] HospitalComment on above:Performed By: #### BNP, BMP, CBC ####[place] [address] [place] CO2 [Moles/Vol]28.3 mmol/SOswyod88.0-31.0The [facility] Physician GroupComment on above:Performed By: #### BNP, BMP, CBC ####[place] [address] USACreatinine [Mass/Vol]2.48 mg/dLSignificant change up0.60-1.20[facility] Physician [facility] HospitalComment on above:Performed By: #### BNP, BMP, CBC ####[place] [address] USACreatinine Clr Calc Lknepzmg82.30NoNovant Health Rehabilitation Hospital Physician [facility] Comment on above:Result Comment: PERFORMED BY:[address] [place], [place] [phone] MEDICAL DIRECTORLLOYD NICHOLSON M.D.Performed By: #### BNP, BMP, CBC ####[place] [address] [place] Estimated GFR19.878 mL/MinNoNovant Health Rehabilitation Hospital Physician [facility] HospitalComment on above: Performed By: #### BNP, BMP, CBC ####[place] [address] USAGlucose [Mass/Vol]93 mg/gTYbfzbt07-830Gmy [facility] Physician GroupComment on above:Result Comment: Random Glucose Reference Range is dependent on time and content of last meal. Glucose of more than 200 mg/dL in a nonstressed, ambulatory subject supports the diagnosis of Diabetes Mellitus. ADA recommended reference rangePerformed By: #### BNP, BMP, CBC ####[place] [address] USAPotassium [Moles/Vol] 3.6 mmol/LNormal3.5-5.1The [facility] Physician GroupComment on above:Performed By: #### BNP, BMP, CBC ####[place] [address] USASodium [Moles/Vol]139 mmol/DDaqect373-753Fjq [facility] Physician GroupComment on above:Performed By: #### BNP, BMP, CBC ####[place] [address] USAUrea nitrogen [Mass/Vol]94 mg/dLHigh7-25The [facility] Physician GroupComment on above:Performed By: #### BNP, BMP, CBC ####[address] [address] USAComplete Blood Count Auto Diffon 06-02-2024 Basophils (Bld) [#/Vol]0.0 10*3/uLNormal0.0-0.2The [facility] Comment on above:Result Comment: PERFORMED BY:[address] [place], [place] [phone] MEDICAL DIRECTORLLOYD NICHOLSON M.D.Performed By: #### BNP, BMP, CBC ####[place] [address] [place] Basophils/100 WBC (Bld)0.9 %Normal.The [facility] Health Physician GroupComment on above:Performed By: #### BNP, BMP, CBC ####[address] [address] USAEosinophils (Bld) [#/Vol]0.4 10*3/uLNormal 0.0-0.45The [facility] Health Physician GroupComment on above:Performed By: #### BNP, BMP, CBC ####[place] [address] USAEosinophils/100 WBC (Bld)6.2 %Normal.The [facility] Health Physician GroupComment on above:Performed By: #### BNP, BMP, CBC ####[place] [address] USAErythrocyte distribution width (RBC) [Ratio] 14.0 %Tmxryg63.9-15.3The [facility] Physician GroupComment on above:Performed By: #### BNP, BMP, CBC ####[place] [address] USAHematocrit (Bld) [Volume fraction]28.1 %Low34.0-46.4The [facility] Health Physician GroupComment on above:Performed By: #### BNP, BMP, CBC ####[place] [address] USAHemoglobin (Bld) [Mass/Vol]9.2 g/dLLow11.8-15.4The [facility] Physician GroupComment on above: Performed By: #### BNP, BMP, CBC ####[place] [address] USALymphocytes (Bld) [#/Vol]1.2 10*3/uLNormal1.00-4.8 The [facility] Health Physician GroupComment on above:Performed By: #### BNP, BMP, CBC ####[place] [address] [place] Lymphocytes/100 WBC (Bld)20.3 %Normal.The [facility] Health Physician GroupComment on above:Performed By: #### BNP, BMP, CBC ####[place] [place] [address] USAMCH (RBC) [Entitic mass]28.0 mvJvtieg03.7-34.3 The [facility] Health Physician GroupComment on above:Performed By: #### BNP, BMP, CBC ####[place] [id number] USAMCV (RBC) [Entitic vol]85.8 cJAkoqaw41-590Qxe [facility] Physician GroupComment on above:Performed By: #### BNP, BMP, CBC ####[place] [address] USAMean Corpuscular HGB Conc32.7 g/dLNormal 32.0-35.0The [facility] Health Physician GroupComment on above:Performed By: #### BNP, BMP, CBC ####[place] [address] USAMonocytes (Bld) [#/Vol]0.9 10*3/uLHigh0.0-0.8[facility] Comment on above:Performed By: #### BNP, BMP, CBC ####[place] [address] USAMonocytes/100 WBC (Bld)15.4 %Normal. The [facility] Health Physician GroupComment on above:Performed By: #### BNP, BMP, CBC ####[place] [address] [place] Neutrophils (Bld) [#/Vol]3.2 10*3/uLNormal1.8-7.7[facility] Comment on above:Performed By: #### BNP, BMP, CBC ####[place] [address] USANeutrophils/100 WBC (Bld)57.2 %Normal .The [facility] Health Physician GroupComment on above:Performed By: #### BNP, BMP, CBC ####[place] [address] USANRBC% 0.1 /100{WBC}Normal0-0.5The [facility] Health Physician GroupComment on above:Performed By: #### BNP, BMP, CBC ####[place] [address] USAPlatelet mean volume (Bld) [Entitic vol]8.3 fLNormal 6.3-10.7The [facility] Health Physician GroupComment on above:Performed By: #### BNP, BMP, CBC ####[facility] [address] [place] [address] USAPlatelets (Bld) [#/Vol]239 10*3/nTQrmuhd293-295Vzq [facility] Comment on above:Performed By: #### BNP, BMP, CBC ####[facility] [address] [place] [address] USARBC (Bld) [#/Vol]3.28 10*6/uLLow 3.60-5.00The [facility] Health Physician GroupComment on above:Performed By: #### BNP, BMP, CBC ####[facility] [place] [address] USAWBC (Bld) [#/Vol]5.7 10*3/uLNormal3.8-11.6[facility] Comment on above:Performed By: #### BNP, BMP, CBC ####[place] [address] [place] [id number] USANatriuretic peptide B [Mass/Vol] Ordered By: Isaiah Mejia on 07-67-9021Sqoslzdtlcg peptide B (Bld) [Mass/Vol] BNP ser/plasHigh5-100[facility] Washington TownshipAlanine aminotransferase [Enzymatic activity/volume] in Serum or PlasmaOrdered By: Regina Garcia on 41-25-1632RUO [Catalytic activity/Vol]Alanine aminotransferase [Enzymatic activity/volume] in Serum or Plasma7-52[facility] TownshipAlbumin [Mass/volume] in Serum or Plasma by Bromocresol green (BCG) dye binding metho Ordered By: Regina Garcia on 62-73-0910Pprgkii BCG dye [Mass/Vol]Albumin [Mass/volume] in Serum or Plasma by Bromocresol green (BCG) dye binding metho 3.5-5.7FOhioHealth Mansfield HospitalAlkaline phosphatase [Enzymatic activity/volume] in Serum or PlasmaOrdered By: Regina Garcia on 88-25-2683ZBX [Catalytic activity/Vol]Alkaline phosphatase [Enzymatic activity/volume] in Serum or Tlwzlm83-536KeoeuzhlpKettering Health Washington TownshipAppearance of UrineOrdered By: Regina Garcia on 26-14-8154Nqclpweong (U)Urine appearanceClearFOhioHealth Mansfield HospitalAspartate aminotransferase [Enzymatic activity/volume] in Serum or PlasmaOrdered By: Regina Garcia on 16-32-7454RHP [Catalytic activity/Vol]Aspartate aminotransferase [Enzymatic activity/volume] in Serum or Ikbqjc83-95MfybfxcvfKettering Health Washington TownshipBasophils Auto (Bld) [#/Vol]Ordered By: Regina Garcia on 26-63-5226Glvfchkzs (Bld) [#/Vol]Automated basophil count 0.0-0.2FOhioHealth Mansfield HospitalBasophils/100 WBC Auto (Bld)Ordered By: Regina Garcia on 58-10-1981Dxgdpvmsf/100 WBC (Bld)Automated basophil %. [facility] TownshipBilirubin Test strip Ql (U)Ordered By: Regina Garcia on 58-47-6082Xrzqwmwkf Ql (U)Bilirubin.total [Presence] in Urine by Test stripNegativeKettering Health Washington TownshipBilirubin.total [Mass/volume] in Serum or PlasmaOrdered By: Regina Garcia on 06-01-2024 Bilirubin [Mass/Vol]Bilirubin.total [Mass/volume] in Serum or Plasma0.3-1.0 [facility] TownshipCT head/brain wo conon 74-41-4739N[place] head/brain wo conNormalThe Atrium Health Physician GroupCalcium [Mass/volume] in Serum or PlasmaOrdered By: Regina Garcia on 05-11-6375Pofvdzh [Mass/Vol]Calcium [Mass/volume] in Serum or Plasma8.6-10.3FOhioHealth Mansfield HospitalCarbon dioxide, total [Moles/volume] in Serum or PlasmaOrdered By: Regina Garcia on 21-27-4300ZE2 [Moles/Vol]Carbon dioxide, total [Moles/volume] in Serum or Plasma High21.0-31.0[facility] TownshipChloride [Moles/volume] in Serum or PlasmaOrdered By: Regina Garcia on 08-85-7560Drxbeowu [Moles/Vol]Chloride [Moles/volume] in Serum or HixtuoKyz23-658HhmikghikKettering Health Washington TownshipColor Auto (U)Ordered By: Regina Garcia on 03-77-1018Xbqvr (U)Color of Urine by AutoYellowKettering Health Washington TownshipComplete Blood Count Auto Diffon 49-22-0879Wivneiwiy (Bld) [#/Vol]0.0 10*3/uLNormal0.0-0.2The [facility] Health Physician GroupComment on above:Result Comment: PERFORMED BY:[address] [place], [place] [phone] MEDICAL DIRECTORLLOYD NICHOLSON M.D.Performed By: #### CMP, PT, HS TROP, PTT, TSH3, CBC, MG ####[place] [id number] USABasophils/100 WBC (Bld)0.5 %Normal.The [facility] Health Physician GroupComment on above:Performed By: #### CMP, PT, HS TROP, PTT, TSH3, CBC, MG ####[address] [address] USAEosinophils (Bld) [#/Vol]0.2 10*3/uLNormal0.0-0.45The [facility] Health Physician GroupComment on above: Performed By: #### CMP, PT, HS TROP, PTT, TSH3, CBC, MG ####[address] [address] USAEosinophils/100 WBC (Bld)2.3 % Normal.The [facility] Health Physician GroupComment on above:Performed By: #### CMP, PT, HS TROP, PTT, TSH3, CBC, MG ####[address] [address] USAErythrocyte distribution width (RBC) [Ratio]14.2 % Zbbdkv54.9-15.3The [facility] Health Physician GroupComment on above:Performed By: #### CMP, PT, HS TROP, PTT, TSH3, CBC, MG ####[address] [address] USAHematocrit (Bld) [Volume fraction]31.8 %Low 34.0-46.4The [facility] Health Physician GroupComment on above:Performed By: #### CMP, PT, HS TROP, PTT, TSH3, CBC, MG ####[place] [address] USAHemoglobin (Bld) [Mass/Vol]10.5 g/dLLow11.8-15.4The [facility] Health Physician GroupComment on above:Performed By: #### CMP, PT, HS TROP, PTT, TSH3, CBC, MG ####[place] [address] USALymphocytes (Bld) [#/Vol]1.0 10*3/uLNormal1.00-4.8The [facility] Health Physician GroupComment on above:Performed By: #### CMP, PT, HS TROP, PTT, TSH3, CBC, MG ####[place] [address] USALymphocytes/100 WBC (Bld)10.3 %Normal.The [facility] Health Physician GroupComment on above:Performed By: #### CMP, PT, HS TROP, PTT, TSH3, CBC, MG ####[address]H (RBC) [Entitic mass]28.1 kjKcsiac37.7-34.3The [facility] Health Physician GroupComment on above: Performed By: #### CMP, PT, HS TROP, PTT, TSH3, CBC, MG ####[address]V (RBC) [Entitic vol]85.4 fL Qehwdt33-178Wez [facility] Physician GroupComment on above:Performed By: #### CMP, PT, HS TROP, PTT, TSH3, CBC, MG ####[place] [address] USAMean Corpuscular HGB Conc33.0 g/dLNormal 32.0-35.0The [facility] Health Physician GroupComment on above:Performed By: #### CMP, PT, HS TROP, PTT, TSH3, CBC, MG ####[address] [place] [address] USAMonocytes (Bld) [#/Vol]0.7 10*3/uLNormal0.0-0.8The [facility] Health Physician GroupComment on above:Performed By: #### CMP, PT, HS TROP, PTT, TSH3, CBC, MG ####[place] [address] USAMonocytes/100 WBC (Bld)16.46 %Normal0.00-20.00The [facility] Health Physician GroupComment on above:Performed By: #### CMP, PT, HS TROP, PTT, TSH3, CBC, MG ####[place] [address] USAMonocytes/100 WBC (Bld)7.2 %Normal.The [facility] Health Physician GroupComment on above:Performed By: #### CMP, PT, HS TROP, PTT, TSH3, CBC, MG ####[place] [address] USANeutrophils (Bld) [#/Vol]7.5 10*3/uLNormal1.8-7.7The [facility] Health Physician GroupComment on above: Performed By: #### CMP, PT, HS TROP, PTT, TSH3, CBC, MG ####[place] [address] USANeutrophils/100 WBC (Bld)79.7 %Normal.The [facility] Health Physician GroupComment on above:Performed By: #### CMP, PT, HS TROP, PTT, TSH3, CBC, MG ####[place] [address] USANRBC%0.1 /100{WBC}Normal0-0.5The [facility] Health Physician GroupComment on above:Performed By: #### CMP, PT, HS TROP, PTT, TSH3, CBC, MG ####[place] [id number] [place] Platelet mean volume (Bld) [Entitic vol]8.7 fLNormal6.3-10.7The [facility] Health Physician GroupComment on above:Performed By: #### CMP, PT, HS TROP, PTT, TSH3, CBC, MG ####[place] [address] USAPlatelets (Bld) [#/Vol]319 10*3/qPJhwbrd814-958Vxr [facility] Comment on above:Performed By: #### CMP, PT, HS TROP, PTT, TSH3, CBC, MG ####[place] [address] USARBC (Bld) [#/Vol]3.72 10*6/uLNormal3.60-5.00The [facility] Health Physician GroupComment on above:Performed By: #### CMP, PT, HS TROP, PTT, TSH3, CBC, MG ####[place] [address] USAWBC (Bld) [#/Vol]9.4 10*3/uLNormal3.8-11.6The [facility] Health Physician GroupComment on above:Performed By: #### CMP, PT, HS TROP, PTT, TSH3, CBC, MG ####[address]Comprehensive Metabolic Panelon 29-05-5970Lqjerzc [Mass/Vol]4.4 g/dLNormal3.5-5.7[facility] Comment on above:Performed By: #### CMP, PT, HS TROP, PTT, TSH3, CBC, MG ####[address] Albumin/Globulin [Mass ratio]1.5 {ratio}NormalThe [facility] Physician [facility] Comment on above:Performed By: #### CMP, PT, HS TROP, PTT, TSH3, CBC, MG ####[place] [address] USAALP [Catalytic activity/Vol]53 U/VBpmzwh73-477Nmg [facility] Physician GroupComment on above:Performed By: #### CMP, PT, HS TROP, PTT, TSH3, CBC, MG ####[place] [address] USAALT [Catalytic activity/Vol]16 U/LNormal7-52The [facility] Health Physician GroupComment on above: Performed By: #### CMP, PT, HS TROP, PTT, TSH3, CBC, MG ####[place] [address] USAAnion gap [Moles/Vol]14.8 mmol/LNormal6.0-15.0The [facility] Health Physician GroupComment on above:Performed By: #### CMP, PT, HS TROP, PTT, TSH3, CBC, MG ####[place] [address] USAAST [Catalytic activity/Vol]22 U/BGckezl98-57 The [facility] Health Physician GroupComment on above:Performed By: #### CMP, PT, HS TROP, PTT, TSH3, CBC, MG ####[place] [address] USABilirubin [Mass/Vol]0.6 mg/dLNormal0.3-1.0The [facility] Health Physician GroupComment on above:Performed By: #### CMP, PT, HS TROP, PTT, TSH3, CBC, MG ####[place] [address] USACalcium [Mass/Vol]10.2 mg/dLNormal8.6-10.3The [facility] Health Physician GroupComment on above:Performed By: #### CMP, PT, HS TROP, PTT, TSH3, CBC, MG ####[place] [address] [place] Chloride [Moles/Vol]94 mmol/VDjp96-890Iau [facility] Physician GroupComment on above:Performed By: #### CMP, PT, HS TROP, PTT, TSH3, CBC, MG ####[place] [address] USACO2 [Moles/Vol]33.2 mmol/LHigh21.0-31.0The [facility] Physician GroupComment on above:Performed By: #### CMP, PT, HS TROP, PTT, TSH3, CBC, MG ####[place] [address] [place] [address] USACreatinine [Mass/Vol]3.04 mg/dLHigh0.60-1.20 The [facility] Physician GroupComment on above:Performed By: #### CMP, PT, HS TROP, PTT, TSH3, CBC, MG ####[place] [address] USACreatinine Clr Calc Ejrcyjby17.91NoNovant Health Rehabilitation Hospital Physician GroupComment on above:Performed By: #### CMP, PT, HS TROP, PTT, TSH3, CBC, MG ####[place] [address] [place] [address] USAEstimated GFR15.569 mL/MinNemours Children's Clinic Hospital Physician [facility] HospitalComment on above:Performed By: #### CMP, PT, HS TROP, PTT, TSH3, CBC, MG ####[place] [address] USAGlobulin (S) [Mass/Vol]3.0 g/dLNoNovant Health Rehabilitation Hospital Physician GroupComment on above:Performed By: #### CMP, PT, HS TROP, PTT, TSH3, CBC, MG ####[place] [address] USAGlucose [Mass/Vol]115 mg/cPXoeb11-687 The [facility] Health Physician GroupComment on above:Result Comment: Random Glucose Reference Range is dependent on time and content of last meal. Glucose of more than 200 mg/dL in a nonstressed, ambulatory subject supports the diagnosis of Diabetes Mellitus. ADA recommended reference rangePerformed By: #### CMP, PT, HS TROP, PTT, TSH3, CBC, MG ####[place] [address] USAPotassium [Moles/Vol]4.0 mmol/LNormal3.5-5.1The [facility] Health Physician GroupComment on above:Performed By: #### CMP, PT, HS TROP, PTT, TSH3, CBC, MG ####[place] [address] USAProtein [Mass/Vol]7.4 g/dLNormal6.4-8.9[facility] Comment on above:Performed By: #### CMP, PT, HS TROP, PTT, TSH3, CBC, MG ####[facility] [place] [address] USASodium [Moles/Vol]138 mmol/NEzyasn891-558Uyq [facility]ician [facility] HospitalComment on above: Performed By: #### CMP, PT, HS TROP, PTT, TSH3, CBC, MG ####[place] [address] [place] [address] USAUrea nitrogen [Mass/Vol]111 mg/dLHigh7-25[facility] HospitalComment on above:Performed By: #### CMP, PT, HS TROP, PTT, TSH3, CBC, MG ####[place] [address] [place] [address] USACreatinine [Mass/volume] in Serum or Plasma Ordered By: Regina Garcia on 71-48-0299Rarbtojheu [Mass/Vol]Creatinine [Mass/volume] in Serum or PlasmaHigh0.60-1.20[facility] Creatinine [Mass/volume] in UrineOrdered By: Isaiah Mejia on 06-01-2024 Creatinine (U) [Mass/Vol]Creatinine [Mass/volume] in UrineKettering Health Washington TownshipComment on above:No reference range establishedCreatinine, Urine (Random)on 27-64-7483Exhranolbb, Urine (Random)41.00 mg/dLNoNovant Health Rehabilitation Hospital Physician [facility] HospitalComment on above:Order Comment: Comment ADD ON to today's UA Result Comment: No reference range establishedPERFORMED BY:[address] [place], [place] [phone] MEDICAL DIRECTORLLOYD NICHOLSON M.D.Performed By: #### KEVIN GIRON ####[place] [address] [place] [address] USAECG 12 lead ECGon 01-97-3970CHX 12 lead ECGNormCleveland Clinic Martin South Hospital Physician GroupEosinophils Auto (Bld) [#/Vol]Ordered By: Regina Garcia on 11-96-9236Zarhztrilff (Bld) [#/Vol] Automated eosinophil count0.0-0.45[facility] Eosinophils/100 WBC Auto (Bld)Ordered By: Regina Garcia on 06-01-2024 Eosinophils/100 WBC (Bld)Automated eosinophil %.[facility] TownshipErythrocyte distribution width Auto (RBC) [Ratio]Ordered By: Regina Garcia on 88-38-3222Sisjnlkqjjl distribution width (RBC) [Ratio]Erythrocyte distribution width [Ratio] by Automated count11.9-15.3FOhioHealth Mansfield HospitalGlobulin Calc (S) [Mass/Vol]Ordered By: Regina Garcia on 06-01-2024 Globulin (S) [Mass/Vol]Serum globulin measurement by calculation (mass/volume) [facility] TownshipGlucose [Mass/volume] in Serum or PlasmaOrdered By: Regina Garcia on 77-31-3730Zhopeib [Mass/Vol]Glucose [Mass/volume] in Serum or WkitgoXxqr92-997JmmlhwuzaKettering Health Washington TownshipComment on above:ADA recommended reference rangeRandom Glucose Reference Range is dependent on time and content of last meal. Glucose of more than 200 mg/dL in a nonstressed, ambulatory subject supports the diagnosisof Diabetes Mellitus.Glucose [Mass/volume] in Urine by Test stripOrdered By: Regina Garcia on 06-01-2024 Glucose Test strip (U) [Mass/Vol]Glucose [Mass/volume] in Urine by Test strip NormalKettering Health Washington TownshipHematocrit Auto (Bld) [Volume fraction] Ordered By: Regina Garcia on 96-64-0992Hbhayusnbf (Bld) [Volume fraction] Hematocrit [Volume Fraction] of Blood by Automated sjlqpQjz04.0-46.4FOhioHealth Mansfield HospitalHemoglobin Test strip Ql (U)Ordered By: Regina Garcia on 72-65-7094Hushbdtadl Ql (U)Hemoglobin [Presence] in Urine by Test strip NegativeKettering Health Washington TownshipHemoglobin [Mass/volume] in Blood Ordered By: Regina Garcia on 76-74-1073Sxjiijzisx (Bld) [Mass/Vol]Hemoglobin [Mass/volume] in NchjyQuh55.8-15.4FOhioHealth Mansfield HospitalINR in Platelet poor plasma by Coagulation assayOrdered By: Regina Garcia on 98-50-7754LSK Coag (PPP) [Relative time]INR in Platelet poor plasma by Coagulation assayKettering Health Washington TownshipComment on above:INR Therapeutic Range A) Pre- and [...] strip Ql (U)Ordered By: Regina Garcia on 48-20-9755Nmhhhki Ql (U)Ketones [Presence] in Urine by Test stripNegWVUMedicine Barnesville Hospital Leukocyte esterase [Presence] in Urine by Test stripOrdered By: Regina Garcia on 12-28-9124Czooyjvql esterase Test strip Ql (U)Leukocyte esterase [Presence] in Urine by Test stripNegWVUMedicine Barnesville HospitalLeukocytes [#/volume] corrected for nucleated erythrocytes in Blood by Automated coun Ordered By: Regina Garcia on 75-79-5554QSX corrected for nucl RBC Auto (Bld) [#/Vol]Leukocytes [#/volume] corrected for nucleated erythrocytes in Blood by Automated coun3.8-11.6FOhioHealth Mansfield HospitalLymphocytes Auto (Bld) [#/Vol]Ordered By: Regina Garcia on 27-13-5851Uefsfgpvzyd (Bld) [#/Vol] Lymphocytes [#/volume] in Blood by Automated count1.00-4.8[facility] TownshipLymphocytes/100 WBC Auto (Bld)Ordered By: Regina Garcia on 93-53-3293Lungmsixfen/100 WBC (Bld)Lymphocytes/100 leukocytes in Blood by Automated count.[facility] Auto (RBC) [Entitic mass] Ordered By: Regina Garcia on 60-49-1850IOW (RBC) [Entitic mass]MCH [Entitic mass] by Automated count24.7-34.3Fire[facility] Regional Medical CenterMCHC Auto (RBC) [Mass/Vol]Ordered By: Regina Garcia on 64-97-3038BVUS (RBC) [Mass/Vol] MCHC [Mass/volume] by Automated count32.0-35.0[facility] MCV Auto (RBC) [Entitic vol]Ordered By: Regina Garcia on 97-48-5334KHM (RBC) [Entitic vol]MCV [Entitic volume] by Automated -028UgqpnenrmKettering Health Washington TownshipMagnesiumon 24-53-0801Heemocfbk [Mass/Vol]3.3 mg/dLHigh1.9-2.7The [facility] Physician GroupComment on above:Performed By: #### CMP, PT, HS TROP, PTT, TSH3, CBC, MG ####[facility] [address] [place] [address] USAMagnesium [Mass/volume] in Serum or PlasmaOrdered By: Regina Garcia on 19-01-1086Iztugkxvc [Mass/Vol]Magnesium [Mass/volume] in Serum or PlasmaHigh1.9-2.7FOhioHealth Mansfield HospitalMonocyte distribution width [Entitic volume] in Blood by AutomatedOrdered By: Regina Garcia on 06-01-2024 Monocyte distribution width Auto (Bld) [Entitic vol]Monocyte distribution width [Entitic volume] in Blood by Automated0.00-20.00[facility] TownshipMonocytes Auto (Bld) [#/Vol]Ordered By: Regina Garcia on 06-01-2024 Monocytes (Bld) [#/Vol]Automated blood monocyte count0.0-0.8[facility] TownshipMonocytes/100 WBC Auto (Bld)Ordered By: Regina Garcia on 31-37-6334Jwsmqcmct/100 WBC (Bld)Automated monocyte %.[facility] TownshipNeutrophils Auto (Bld) [#/Vol]Ordered By: Regina Garcia on 06-01-2024 Neutrophils (Bld) [#/Vol]Neutrophils [#/volume] in Blood by Automated count 1.8-7.7FOhioHealth Mansfield HospitalNeutrophils/100 WBC Auto (Bld)Ordered By: Regina Garcia on 35-72-2326Khsckbicdhy/100 WBC (Bld)Automated neutrophil % .[facility] TownshipNitrite Test strip Ql (U)Ordered By: Regina Garcia on 47-86-1418Snyreuy Ql (U)Nitrite [Presence] in Urine by Test strip NegativeKettering Health Washington TownshipNo Panel InformationOrdered By: Regina Garcia on 51-86-9220Wjeotbryr GFR (CKD-EPI)15.569 mL/MinKettering Health Washington TownshipPharmacy Creatinine Clearance (Chem14.91[facility] TownshipNucleated erythrocytes [Presence] in Blood by Automated countOrdered By: Regina Garcia on 64-99-8893Vbliqniqh RBC Auto Ql (Bld) Nucleated erythrocytes [Presence] in Blood by Automated count0-0.5FOhioHealth Mansfield HospitalPartial Thromboplastin Timeon 82-72-4074xYWY Coag (Bld) [Time]29.9 kYazznl93.1-36.5The [facility] Health Physician GroupComment on above:Result Comment: A hematocrit value greater than 55% may lead to inaccurate results in coagulation testing. Patients having hematocrit values >55% require a special collection tube for coagulation studies. Please contact the laboratory at [phone] for redraw instructions.PERFORMED BY:[place] [address] [address] [place], [place] [phone] MEDICAL DIRECTORLLOYD NICHOLSON M.D.Performed By: #### CMP, PT, HS TROP, PTT, TSH3, CBC, MG ####[facility] [address] [place] [address] [place] [address] USAPlatelet mean volume Auto (Bld) [Entitic vol]Ordered By: Regina Garcia on 08-52-2202Vzxwmbnw mean volume (Bld) [Entitic vol]Platelet mean volume [Entitic volume] in Blood by Automated count6.3-10.7FOhioHealth Mansfield HospitalPlatelets Auto (Bld) [#/Vol]Ordered By: Regina Garcia on 06-01-2024 Platelets (Bld) [#/Vol]Platelets [#/volume] in Blood by Automated -659 [facility] TownshipPotassium [Moles/volume] in Serum or Plasma Ordered By: Regina Garcia on 80-67-8143Pmwpyygep [Moles/Vol]Potassium [Moles/volume] in Serum or Plasma3.5-5.1FOhioHealth Mansfield HospitalProtein Test strip (U) [Mass/Vol]Ordered By: Regina Garcia on 56-15-9333Yoigdwk (U) [Mass/Vol]Protein [Mass/volume] in Urine by Test stripNegativeKettering Health Washington TownshipProtein [Mass/volume] in Serum or PlasmaOrdered By: Regina Garcia on 79-67-6561Tjngatm [Mass/Vol]Protein [Mass/volume] in Serum or Plasma 6.4-8.9[facility] TownshipProthrombin Time INRon 60-44-9803DED Coag (PPP) [Relative time]0.9 {INR}NormalThe Atrium Health Physician GroupComment on above:Result Comment: INR Therapeutic [...] PT, HS TROP, PTT, TSH3, CBC, MG ####[facility] [address] [place] [address] USAPT Coag (PPP) [Time]10.3 sNormal9.0-12.9The [facility] Health Physician GroupComment on above: Result Comment: A hematocrit value greater than 55% may lead to inaccurate results in coagulation testing. Patients having hematocrit values >55% require a special collection tube for coagulation studies. Please contact the laboratory at [phone] for redraw instructions.Performed By: #### CMP, PT, HS TROP, PTT, TSH3, CBC, MG ####[facility] [address] [place] [address] USAProthrombin time (PT)Ordered By: Regina Garcia on 01-36-5418TL Coag (PPP) [Time]Prothrombin time (PT)9.0-12.9[facility] Comment on above:A hematocrit value greater than 55% may lead to inaccurate results in coagulation testing. Patientshaving hematocrit values >55% require a special collection tube for coagulation studies. Please contact the laboratory at [phone] for redraw instructions.RBC Auto (Bld) [#/Vol]Ordered By: Regina Garcia on 63-21-1022EZK (Bld) [#/Vol]Erythrocytes [#/volume] in Blood by Automated count3.60-5.00[facility]acon[facility] Hospitalerum or plasma albumin/globulin mass ratioOrdered By: Regina Garcia on 06-01-2024 Albumin/Globulin [Mass ratio]Serum or plasma albumin/globulin mass ratio [facility]acon[facility] Hospitalerum or plasma anion gap determinationOrdered By: Regina Garcia on 71-75-5167Mnbhc gap [Moles/Vol]Serum or plasma anion gap determination6.0-15.0[facility] Hospitalodium [Moles/volume] in Serum or PlasmaOrdered By: Regina Garcia on 66-39-0411Wbluyj [Moles/Vol]Sodium [Moles/volume] in Serum or Elsjbi257-587NtuchpdwtProtestant Deaconess Hospitalodium [Moles/volume] in UrineOrdered By: Isaiah Mejia on 63-57-2408Cnhlda (U) [Moles/Vol]Sodium [Moles/volume] in UrineKettering Health Washington Township Comment on above:No reference range establishedSodium, Urineon 99-32-5737Fqtlck (U) [Moles/Vol]60.0 mmol/LNormalThe [facility]rium Health Physician GroupComment on above: Order Comment: Comment ADD ON to today's UAResult Comment: No reference range establishedPerformed By: #### UCREA, URNA ####[facility] [address] [place] [address] [facility]ENTERSpecific gravity Test strip (U) [Rel density] Ordered By: Regina Garcia on 72-58-2560Cstmvydt gravity (U) [Rel density] Specific gravity of Urine by Test strip1.001-1.030[facility] Washington TownshipThyroid Stimulating Hormoneon 88-43-0604KUJ Qn5.13 m[IU]/LNormal0.45-5.33 The [facility] Physician GroupComment on above:Result Comment: PERFORMED BY:[address] [address] [address] [place], [place] [phone] MEDICAL DIRECTORLLOYD NICHOLSON M.D.Performed By: #### CMP, PT, HS TROP, PTT, TSH3, CBC, MG ####[facility] [place] [address] USAThyrotropin [Units/volume] in Serum or Plasma Ordered By: Regina Garcia on 61-65-6161NBM QnThyrotropin [Units/volume] in Serum or Plasma0.45-5.33[facility] TownshipTroponin I High Sensitivityon 31-84-0669Qnzyhybb I High Qyngzulnzfy53Zcvsgx7-13Ewo [facility] Health Physician GroupComment on above:Result Comment: The Troponin units of report have been changed to meet the Chest Pain Accreditationrequirement, element EC5.M1l2. Troponin units are changed from pg/ml to ng/L. Also, the decimal is r emoved and results are in whole numbers.PERFORMED BY:[address]CHRISTINE RICKETTSRadhaHUI, [place] [phone] MEDICAL DIRECTORLLOYD NICHOLSON M.D.Performed By: #### CMP, PT, HS TROP, PTT, TSH3, CBC, MG ####[facility] [place] [address] USATroponin I.cardiac [Mass/volume] in Serum or Plasma by Detection limit <= 0.01 ng/Ordered By: Regina Garcia on 10-54-9644Gnnetqmf I.cardiac DL <= 0.01 ng/mL [Mass/Vol]Troponin I.cardiac [Mass/volume] in Serum or Plasma by Detection limit <= 0.01 ng/0-15[facility] TownshipComment on above:The Troponin units of report have been changed to meet the Chest Pain Accreditation requirement, element EC5.M1l2. Troponin units are changed from pg/ml to ng/L. Also, the decimal is removed and results are in whole numbers. Urea nitrogen [Mass/volume] in Serum or PlasmaOrdered By: Regina Garcia on 55-65-2037Rguh nitrogen [Mass/Vol]Urea nitrogen [Mass/volume] in Serum or Plasma [address] White StreetUrinalysison 94-57-7306Zbryurdodx (U) ClearNormalClearThe Atrium Health Physician GroupComment on above:Order Comment: Name Collection Type:: Clean-Voided MidstreamPerformed By: #### UA ####[address] [address] USABilirubin,Urine NegativeNormalNegativeAdventhealth Central Pasco Er Physician GroupComment on above:Order Comment: Name Collection Type:: Clean-Voided MidstreamPerformed By: #### UA ####[address] [address] USAColor (U)Light-YellowNormalYellowAdventhealth Central Pasco Er Physician GroupComment on above:Order Comment: Name Collection Type:: Clean-Voided MidstreamPerformed By: #### UA ####[address] [address] USAGlucose Ql (U)NormalNormalNormalThValor Health Physician GroupComment on above:Order Comment: Name Collection Type:: Clean-Voided MidstreamPerformed By: #### UA ####[address] [address] USAKetones Ql (U)NegativeNormalNegativeAdventhealth Central Pasco Er Physician GroupComment on above:Order Comment: Name Collection Type:: Clean-Voided MidstreamPerformed By: #### UA ####[address] [address] [place] Leukocyte esterase Test strip Ql (U)NegativeNormalNegativeAdventhealth Central Pasco Er Physician GroupComment on above:Order Comment: Name Collection Type:: Clean- Voided MidstreamPerformed By: #### UA ####[address] [address] USANitrite,UrineNegativeNormalNegativeAdventhealth Central Pasco Er Physician GroupComment on above:Order Comment: Name Collection Type:: Clean-Voided MidstreamPerformed By: #### UA ####[address] [address] USAOccult Blood,UrineNegativeNormal NegativeThe Atrium Health Physician GroupComment on above:Order Comment: Name Collection Type:: Clean-Voided MidstreamResult Comment: PERFORMED BY:[address] [address] [place], [place] [phone] MEDICAL DIRECTORLLOYD NICHOLSON M.D.Performed By: #### UA ####[address] [address] USApH (U)6.5 [pH]Normal 5.0-9.0The At[facility] Health Physician GroupComment on above:Order Comment: Name Collection Type:: Clean-Voided MidstreamPerformed By: #### UA ####[address] [address] USAProtein,UrineNegative NormalNegativeThe Atrium Health Physician GroupComment on above:Order Comment: Name Collection Type:: Clean-Voided MidstreamPerformed By: #### UA ####[address] [address] USASpecificy Aurora,Urine1.883Jqpeym5.001-1.030The Atrium Health Physician GroupComment on above:Order Comment: Name Collection Type:: Clean-Voided MidstreamPerformed By: #### UA ####[address] [address] USAUrobilinogen,UrineNormalNormalNormalThe Atrium Health Physician GroupComment on above:Order Comment: Name Collection Type:: Clean-Voided MidstreamPerformed By: #### UA ####[address] [address] USAUrobilinogen Test strip (U) [Mass/Vol]Ordered By: Regina Garcia on 76-67-9223Rqpdbngeifeo (U) [Mass/Vol]Urobilinogen [Mass/volume] in Urine by Test stripChildren's Hospital of ColumbusWBC Auto (Bld) [#/Vol]Ordered By: Regina Garcia on 29-59-2284LIJ (Bld) [#/Vol]Leukocytes [#/volume] in Blood by Automated count3.8-11.6FOhioHealth Mansfield HospitalX-ray reportOrdered By: Saman Vo on 70-28-1808Kqhmr reportPREMIER HEALTH A[facility] Main [place] [address] [place] [address] XRay Report Signed with Addenda Patient: Renuka Owen MR#: [id number] : 1950 Acct:[id number] Age/Sex: 73 / F ADM Date: 5 Loc: ER Room: Type: [facility] ER Attending Dr: Copies to: Regina Garcia DO~ Ordering Provider: Regina Garcia DO Date of Service: 06/01/24 XR/XR tibia/fibula BI: Fall ([id number]) CT/CT cervical spine wo con: fall ([id number]) XR/XR chest 1V: Fall ([id number]) XR/XR knee LT 2V: Fall ADDENDUM 1 [...] 1:12 PM Dictation Location: RADIO-PC-22 Transcribed By: [facility] 06/01/24 1312 Dictated By: Saman Vo Jr, DO 06/01/24 1309 Signed By: 06/01/24 1312 [facility] TownshipXR tibia/fibula BIon 94-36-8116CP tibia/fibula BINormalThe Atrium Health Physician GroupaPTT in Platelet poor plasma by Coagulation assayOrdered By: Regina Garcia on 44-96-0926eECV Coag (PPP) [Time]Activated partial thromboplastin time (aPTT) in platelet poor plasma by coagulation a 25.1-36.5FOhioHealth Mansfield HospitalComment on above:A hematocrit value greater than 55% may lead to inaccurate results in coagulation testing. Patients having hematocrit values >55% require a special collection tube for coagulation studies. Please contact the laboratory at [phone] for redraw instructions. pH Test strip (U)Ordered By: Regina Garcia on 36-39-0044sJ (U)pH of Urine by Test strip5.0-9.0[facility] TownshipOphthalmic OCT panelon 22-21-7111PIFYPemiscot Memorial Health Systems Eye Images reviewed and comparison made to baseline, Images reviewed. To assess optic nerve function and for use in future follow-up. Reliability: good and adequate. Left Eye Images reviewed and comparison made to baseline, Images reviewed. To assess optic nerve function and for use in future follow-up. Reliability: borderline. Notes Moderate nerve fiber layer (NFL) thinning left eye (OS). Stable right eye (OD). 90/70.[facility] HospitalRadiology Study observation (narrative)[facility] HealthcareBasophils Auto (Bld) [#/Vol]on 40-60-9192Ikjctxqfz (Bld) [#/Vol]Automated basophil count0.0-0.1FOhioHealth Mansfield Hospital Basophils/100 WBC Auto (Bld)on 24-12-7137Gxzybboto/100 WBC (Bld)Automated basophil %0.2-2.0[facility] TownshipEosinophils/100 WBC Auto (Bld) on 74-46-9865Kfcelesoicc/100 WBC (Bld)Automated eosinophil %0.9-7.0[facility] TownshipErythrocyte distribution width Auto (RBC) [Ratio]on 61-51-3639Dvezcrlxqqm distribution width (RBC) [Ratio]Erythrocyte distribution width [Ratio] by Automated evlhsMooq93.0-15.0[facility] Estimated glomerular filtration rate (GFR) non- Americanon 04-17-2024 GFR/1.73 sq M.predicted among non-blacks MDRD (S/P/Bld) [Vol rate/Area]Estimated glomerular filtration rate (GFR) non- AmericanLow>=60 mL/min/1.73m 2 [facility] TownshipHematocrit Auto (Bld) [Volume fraction]on 24-97-1583Kzxxeovcuk (Bld) [Volume fraction]Hematocrit [Volume Fraction] of Blood by Automated svibrVoc50.0-48.0[facility] TownshipHemoglobin [Mass/volume] in Bloodon 64-38-1371Oiqsmbllqb (Bld) [Mass/Vol]Hemoglobin [Mass/volume] in MtjbyQqy16.0-16.0[facility] TownshipIron binding capacity [Mass/volume] in Serum or Plasmaon 60-19-4012Fwac binding capacity [Mass/Vol]Iron binding capacity [Mass/volume] in Serum or Hwduvv371.0-450.0 [facility] TownshipIron saturation [Mass Fraction] in Serum or Plasmaon 59-53-4888Lnho saturation [Mass fraction]Iron saturation [Mass Fraction] in Serum or PlasmaKettering Health Washington TownshipLaboratory - Chemistry and Chemistry - challengeon 38-89-6153Cgkasji [Mass/Vol]8.9 mg/dL 8.5-10.1FOhioHealth Mansfield HospitalChloride [Moles/Vol]106 mmol/L98-107 [facility] TownshipCO2 [Moles/Vol]31.2 mmol/L21.0-32.0[facility] TownshipCobalamin (Vitamin B12) [Mass/Vol]376 pg/jH230-2019 [facility] TownshipComment on above:Performed at: [facility] [address] [id number] Director: Jerad Medina PhD, Phone: [phone] [Mass/Vol]1.27 mg/dLHigh0.55-1.02[facility] TownshipFerritin [Mass/Vol]74.0 ng/mL8.0-252.0[facility] TownshipGFR/1.73 sq M.predicted MDRD (S/P/Bld) [Vol rate/Area]50 mL/min/{1.73_m2} Low>=60 mL/min/1.73m 2FOhioHealth Mansfield HospitalGlucose [Mass/Vol]90 mg/iC14-436YwlrmljnwKettering Health Washington TownshipIron [Mass/Vol]97.0 ug/dL50.0-170.0 [facility] TownshipPotassium [Moles/Vol]4.5 mmol/L3.5-5.1FSelect Medical Specialty Hospital - Cleveland-Fairhillodium [Moles/Vol]144 mmol/G398-261FltbkceycK[facility]tering Health Washington TownshipUrea nitrogen [Mass/Vol]20.0 mg/dLHigh7.0-18.0[facility] TownshipUrea nitrogen/Creatinine [Mass ratio]15.7 mg/mgKettering Health Washington TownshipLaboratory - Hematology and Cell countson 15-12-3625Rkurgeih granulocytes/100 WBC (Bld)0.5 %0.0-0.5FOhioHealth Mansfield Hospital Leukocytes [#/volume] corrected for nucleated erythrocytes in Blood by Automated counon 66-11-5113NCX corrected for nucl RBC Auto (Bld) [#/Vol]Leukocytes [#/volume] corrected for nucleated erythrocytes in Blood by Automated coun 4.0-11.0[facility] TownshipLymphocytes Auto (Bld) [#/Vol]on 61-49-9271Koyqcauswet (Bld) [#/Vol]Lymphocytes [#/volume] in Blood by Automated count1.2-3.8[facility] TownshipLymphocytes/100 WBC Auto (Bld)on 02-25-3875Blfuhbwqcgr/100 WBC (Bld)Lymphocytes/100 leukocytes in Blood by Automated count20.5-60.0[facility] Medical CenterH Auto (RBC) [Entitic mass]on 21-03-7014WFM (RBC) [Entitic mass]MCH [Entitic mass] by Automated count 26.7-34.0[facility] TownshipMCHC Auto (RBC) [Mass/Vol]on 90-99-0348KLWT (RBC) [Mass/Vol]MCHC [Mass/volume] by Automated count29.9-35.2 [facility] TownshipMCV Auto (RBC) [Entitic vol]on 41-87-6622YXC (RBC) [Entitic vol]MCV [Entitic volume] by Automated count81.0-99.0[facility] TownshipMonocytes Auto (Bld) [#/Vol]on 84-80-4942Qukyorkmh (Bld) [#/Vol]Automated blood monocyte count0.3-0.8[facility] Monocytes/100 WBC Auto (Bld)on 59-47-4676Sixdsqadw/100 WBC (Bld)Automated monocyte %1.7-12.0[facility] TownshipNeutrophils Auto (Bld) [#/Vol]on 03-01-1274Wynghzhiqwm (Bld) [#/Vol]Neutrophils [#/volume] in Blood by Automated count1.4-6.5FOhioHealth Mansfield HospitalNeutrophils/100 WBC Auto (Bld)on 31-72-1430Etludpdotxz/100 WBC (Bld)Automated neutrophil %43.0-75.0 [facility] TownshipNo Panel Informationon 10-81-2058Ziycurypiil # (Auto)0.2 10 3/uL0.0-0.7FOhioHealth Mansfield HospitalFolate20.00 ng/mL 8.60-58.90[facility] TownshipImmature Granulocyte # (Auto)0.03 10 3/uL0.00-0.03[facility] TownshipPlatelet mean volume Auto (Bld) [Entitic vol]on 61-75-1068Jczgdozm mean volume (Bld) [Entitic vol]Platelet mean volume [Entitic volume] in Blood by Automated countLow9.5-13.5FOhioHealth Mansfield HospitalPlatelets Auto (Bld) [#/Vol]on 88-90-2807Xbxycaatr (Bld) [#/Vol] Platelets [#/volume] in Blood by Automated exnny995-416OzyvysnzzKettering Health Washington TownshipRBC Auto (Bld) [#/Vol]on 29-25-8738RXT (Bld) [#/Vol]Erythrocytes [#/volume] in Blood by Automated countLow4.20-5.40Pro[facility]ant Deaconess Hospitalerum or plasma anion gap determinationon 71-78-4211Umvbl gap [Moles/Vol] Serum or plasma anion gap determinationKettering Health Washington TownshipAlanine aminotransferase [Enzymatic activity/volume] in Serum or PlasmaOrdered By: Josh Sosa on 65-99-0926UMZ [Catalytic activity/Vol]Alanine aminotransferase [Enzymatic activity/volume] in Serum or PlasmaKettering Health Washington TownshipAlbumin [Mass/volume] in Serum or Plasma by Bromocresol green (BCG) dye binding methoOrdered By: Josh Sosa on 07-97-1994Nqrqmkw BCG dye [Mass/Vol] Albumin [Mass/volume] in Serum or Plasma by Bromocresol green (BCG) dye binding methoLow3.5-5.7FOhioHealth Mansfield HospitalAlkaline phosphatase [Enzymatic activity/volume] in Serum or PlasmaOrdered By: Josh Sosa on 32-60-4614QCH [Catalytic activity/Vol]Alkaline phosphatase [Enzymatic activity/volume] in Serum or Wfmsxq88-745KzfdrgjmdKettering Health Washington TownshipAspartate aminotransferase [Enzymatic activity/volume] in Serum or PlasmaOrdered By: Josh Sosa on 65-02-1250TIJ [Catalytic activity/Vol]Aspartate aminotransferase [Enzymatic activity/volume] in Serum or Qhzpjz46-44FpowgamkbKettering Health Washington Township Basophils Auto (Bld) [#/Vol]Ordered By: Josh Sosa on 43-21-7014Diiekexwj (Bld) [#/Vol]Automated basophil count0.0-0.2FOhioHealth Mansfield Hospital Basophils/100 WBC Auto (Bld)Ordered By: Josh Sosa on 91-75-6190Jvhodqywa/100 WBC (Bld)Automated basophil %.[facility] TownshipBilirubin.total [Mass/volume] in Serum or PlasmaOrdered By: Josh Sosa on 10-05-2519Gvtayhjym [Mass/Vol]Bilirubin.total [Mass/volume] in Serum or Plasma0.3-1.0[facility] TownshipCalcium [Mass/volume] in Serum or PlasmaOrdered By: Josh Sosa on 73-46-1792Uvivqex [Mass/Vol]Calcium [Mass/volume] in Serum or Plasma Low8.6-10.3FOhioHealth Mansfield HospitalCarbon dioxide, total [Moles/volume] in Serum or PlasmaOrdered By: Josh Sosa on 16-95-7052ZV8 [Moles/Vol]Carbon dioxide, total [Moles/volume] in Serum or Azqcgp66.0-31.0[facility] TownshipChloride [Moles/volume] in Serum or PlasmaOrdered By: Josh Sosa on 38-22-2254Wvwbvrsg [Moles/Vol]Chloride [Moles/volume] in Serum or PlasmaHigh 98-107[facility] TownshipComplete Blood Count Auto Diffon 02-35-0923Ybpjpkphi (Bld) [#/Vol]0.0 10*3/uLNormal0.0-0.2The Atrium Health Physician GroupComment on above:Result Comment: PERFORMED BY:[address] [place], [place] [phone] MEDICAL DIRECTORLLOYD NICHOLSON M.D.Performed By: #### CBC, CMP ####[place] [id number] USABasophils/100 WBC (Bld)0.8 %Normal.The [facility] Health Physician GroupComment on above:Performed By: #### CBC, CMP ####[place] [id number] USAEosinophils (Bld) [#/Vol]0.2 10*3/uLNormal0.0-0.45The [facility] Health Physician GroupComment on above:Performed By: #### CBC, CMP ####[place] [id number] USAEosinophils/100 WBC (Bld)3.4 %Normal.The [facility] Health Physician GroupComment on above:Performed By: #### CBC, CMP ####[place] [id number] USAErythrocyte distribution width (RBC) [Ratio]14.9 %Azznsz11.9-15.3The [facility] Health Physician GroupComment on above:Performed By: #### CBC, CMP ####[place] [id number] [place] Hematocrit (Bld) [Volume fraction]29.6 %Low34.0-46.4The At[facility] Health Physician GroupComment on above:Performed By: #### CBC, CMP ####[place] [address] USAHemoglobin (Bld) [Mass/Vol]9.9 g/dLLow 11.8-15.4The At[facility] Health Physician GroupComment on above:Performed By: #### CBC, CMP ####[place] [address] [place] Lymphocytes (Bld) [#/Vol]1.6 10*3/uLNormal1.00-4.8The [facility] Comment on above:Performed By: #### CBC, CMP ####[place] [address] USALymphocytes/100 WBC (Bld)28.0 %Normal. The Atrium Health Physician GroupComment on above:Performed By: #### CBC, CMP ####[address] (RBC) [Entitic mass]28.8 qpOvvinh03.7-34.3The [facility] Health Physician GroupComment on above:Performed By: #### CBC, CMP ####[address]V (RBC) [Entitic vol]86.1 wVGemcva91-752Sef [facility] Physician GroupComment on above:Performed By: #### CBC, CMP ####[place] [address] USAMean Corpuscular HGB Conc33.5 g/qTIacljv94.0-35.0The [facility] Health Physician GroupComment on above:Performed By: #### CBC, CMP ####[place] [address] USAMonocytes (Bld) [#/Vol]1.1 10*3/uLHigh0.0-0.8 The [facility] Health Physician GroupComment on above:Performed By: #### CBC, CMP ####[place] [address] [place] Monocytes/100 WBC (Bld)19.5 %Normal.The [facility] Health Physician GroupComment on above:Performed By: #### CBC, CMP ####[place] [address] USANeutrophils (Bld) [#/Vol]2.7 10*3/uLNormal1.8-7.7The [facility] Health Physician GroupComment on above:Performed By: #### CBC, CMP ####[place] [id number] [place] Neutrophils/100 WBC (Bld)48.3 %Normal.The [facility] Health Physician GroupComment on above:Performed By: #### CBC, CMP ####[place] [id number] USANRBC%0.2 /100{WBC}Normal0-0.5The [facility] Health Physician GroupComment on above:Performed By: #### CBC, CMP ####[place] [id number] USAPlatelet mean volume (Bld) [Entitic vol]8.0 fLNormal6.3-10.7The [facility] Health Physician GroupComment on above: Performed By: #### CBC, CMP ####[place] [address] USAPlatelets (Bld) [#/Vol]285 10*3/fFMarjeo427-682Hbt [facility] Physician GroupComment on above:Performed By: #### CBC, CMP ####[place] [address] USARBC (Bld) [#/Vol]3.44 10*6/uLLow3.60-5.00The [facility] Health Physician GroupComment on above:Performed By: #### CBC, CMP ####[place] [address] USAWBC (Bld) [#/Vol]5.7 10*3/uLNormal3.8-11.6The [facility] Health Physician GroupComment on above:Performed By: #### CBC, CMP ####[place] [id number] [facility] Comprehensive Metabolic Panelon 49-50-0357Jbzldnh [Mass/Vol]2.9 g/dLLow3.5-5.7 The [facility] Health Physician GroupComment on above:Performed By: #### CBC, CMP ####[place] [address] [place] Albumin/Globulin [Mass ratio]1.4 {ratio}NormalThe [facility] Group Comment on above:Performed By: #### CBC, CMP ####[place] [address] [place] [address] USAALP [Catalytic activity/Vol]49 U/L Vqwjgs05-757Nfz [facility] Physician GroupComment on above:Performed By: #### CBC, CMP ####[place] [address] [place] [address] USAALT [Catalytic activity/Vol]13 U/LNormal7-52The [facility] Comment on above:Performed By: #### CBC, CMP ####[place] [address] [place] [address] USAAnion gap [Moles/Vol]9.5 mmol/LNormal 6.0-15.0The [facility] Health Physician GroupComment on above:Performed By: #### CBC, CMP ####[address] [address] USAAST [Catalytic activity/Vol]13 U/XFevfdw11-22Loi [facility] Physician GroupComment on above:Performed By: #### CBC, CMP ####[address] [address] USABilirubin [Mass/Vol]1.0 mg/dLNormal0.3-1.0The [facility] Health Physician GroupComment on above:Performed By: #### CBC, CMP ####[address] [address] USACalcium [Mass/Vol]8.1 mg/dLLow8.6-10.3The [facility] Health Physician GroupComment on above: Performed By: #### CBC, CMP ####[address] [address] USAChloride [Moles/Vol]109 mmol/XZpzk80-112Wqg [facility] Physician GroupComment on above:Performed By: #### CBC, CMP ####[address] [address] USACO2 [Moles/Vol]27.5 mmol/WGzoxcm87.0-31.0The [facility] Physician GroupComment on above:Performed By: #### CBC, CMP ####[address] [address] USACreatinine [Mass/Vol]0.96 mg/dLNormal0.60-1.20The [facility] Physician GroupComment on above:Performed By: #### CBC, CMP ####[address] [address] [place] Creatinine Clr Calc Xltlqabg30.13NoNovant Health Rehabilitation Hospital Physician GroupComment on above:Result Comment: PERFORMED BY:[address] [place], [place] [phone] MEDICAL DIRECTORLLOYD YANEZ M.D.Performed By: #### CBC, CMP ####[place] [id number] USAGFR/1.73 sq M.predicted MDRD (S/P/Bld) [Vol rate/Area]mL/min/{1.73_m2}NormalThe Atrium Health Physician GroupComment on above: Performed By: #### CBC, CMP ####[address] [address] USAGlobulin (S) [Mass/Vol]2.1 g/dLNoNovant Health Rehabilitation Hospital Physician [facility] HospitalComment on above:Performed By: #### CBC, CMP ####[address] [address] USAGlucose [Mass/Vol]96 mg/yISgfjcj94-461Lgd [facility] Physician GroupComment on above:Result Comment: Random Glucose Reference Range is dependent on time and content of last meal. Glucose of more than 200 mg/dL in a nonstressed, ambulatory subject supports the diagnosis of Diabetes Mellitus. ADA recommended reference rangePerformed By: #### CBC, CMP ####[place] [id number] USAPotassium [Moles/Vol]4.0 mmol/LNormal3.5-5.1The [facility] Physician GroupComment on above:Performed By: #### CBC, CMP ####[place] [id number] USAProtein [Mass/Vol]5.0 g/dLLow6.4-8.9 The [facility] Health Physician GroupComment on above:Performed By: #### CBC, CMP ####[place] [address] [place] [address] USASodium [Moles/Vol]142 mmol/XDkhujx026-298Afd [facility] Physician GroupComment on above: Performed By: #### CBC, CMP ####[facility] [address] [place] [id number] USAUrea nitrogen [Mass/Vol]46 mg/dLHigh7-25The [facility] Health Physician GroupComment on above:Performed By: #### CBC, CMP ####[place] [address] [place] [id number] [facility] Creatinine [Mass/volume] in Serum or PlasmaOrdered By: Josh Sosa on 04-09-2024 Creatinine [Mass/Vol]Creatinine [Mass/volume] in Serum or Plasma0.60-1.20 [facility] TownshipEosinophils Auto (Bld) [#/Vol]Ordered By: Josh Sosa on 20-61-4920Enfqckeolft (Bld) [#/Vol]Automated eosinophil count0.0-0.45 [facility] TownshipEosinophils/100 WBC Auto (Bld)Ordered By: Josh Sosa on 02-23-4361Qjapthycjkv/100 WBC (Bld)Automated eosinophil %.[facility] TownshipErythrocyte distribution width Auto (RBC) [Ratio]Ordered By: Josh Sosa on 20-41-7617Zldhovzeagx distribution width (RBC) [Ratio] Erythrocyte distribution width [Ratio] by Automated count11.9-15.3FOhioHealth Mansfield HospitalGlobulin Calc (S) [Mass/Vol]Ordered By: Josh Sosa on 50-49-7309Tqqbrzqd (S) [Mass/Vol]Serum globulin measurement by calculation (mass/volume)[facility] TownshipGlucose [Mass/volume] in Serum or PlasmaOrdered By: Josh Sosa on 37-28-9125Ancltng [Mass/Vol]Glucose [Mass/volume] in Serum or Vypgvd92-769UysoewcuuKettering Health Washington TownshipComment on above:ADA recommended reference rangeRandom Glucose Reference Range is dependent on time and content of last meal. Glucose of more than 200 mg/dL in a nonstressed, ambulatory subject supports the diagnosisof Diabetes Mellitus. Hematocrit Auto (Bld) [Volume fraction]Ordered By: Josh Sosa on 04-09-2024 Hematocrit (Bld) [Volume fraction]Hematocrit [Volume Fraction] of Blood by Automated ibewtSdv42.0-46.4FOhioHealth Mansfield HospitalHemoglobin [Mass/volume] in BloodOrdered By: Josh Sosa on 06-69-4065Wpkvtttqfo (Bld) [Mass/Vol]Hemoglobin [Mass/volume] in QigboLye95.8-15.4FOhioHealth Mansfield HospitalLeukocytes [#/volume] corrected for nucleated erythrocytes in Blood by Automated counOrdered By: Josh Sosa on 23-66-1071YPQ corrected for nucl RBC Auto (Bld) [#/Vol]Leukocytes [#/volume] corrected for nucleated erythrocytes in Blood by Automated coun3.8-11.6FOhioHealth Mansfield Hospital Lymphocytes Auto (Bld) [#/Vol]Ordered By: Josh Sosa on 50-43-8735Ghjrzpktjxl (Bld) [#/Vol]Lymphocytes [#/volume] in Blood by Automated count1.00-4.8[facility] TownshipLymphocytes/100 WBC Auto (Bld)Ordered By: Josh Sosa on 48-17-2425Lxcvnbrxnmp/100 WBC (Bld)Lymphocytes/100 leukocytes in Blood by Automated count.[facility] CenterH Auto (RBC) [Entitic mass] Ordered By: Josh Sosa on 69-62-7008QPE (RBC) [Entitic mass]MCH [Entitic mass] by Automated count24.7-34.3FOhioHealth Mansfield HospitalMCHC Auto (RBC) [Mass/Vol]Ordered By: Josh Sosa on 56-06-1863DDKA (RBC) [Mass/Vol]MCHC [Mass/volume] by Automated count32.0-35.0[facility] TownshipMCV Auto (RBC) [Entitic vol]Ordered By: Josh Sosa on 76-26-2680FPW (RBC) [Entitic vol]MCV [Entitic volume] by Automated -622WtnqzkxpgKettering Health Washington TownshipMonocytes Auto (Bld) [#/Vol]Ordered By: Josh Sosa on 86-58-7039Zrlkufhtk (Bld) [#/Vol]Automated blood monocyte countHigh0.0-0.8[facility] TownshipMonocytes/100 WBC Auto (Bld)Ordered By: Josh Sosa on 04-09-2024 Monocytes/100 WBC (Bld)Automated monocyte %.[facility] Neutrophils Auto (Bld) [#/Vol]Ordered By: Josh Sosa on 99-78-1726Nshgmbhkmog (Bld) [#/Vol]Neutrophils [#/volume] in Blood by Automated count1.8-7.7FOhioHealth Mansfield HospitalNeutrophils/100 WBC Auto (Bld)Ordered By: Josh Sosa on 18-56-6546Hhhgqcnqxmd/100 WBC (Bld)Automated neutrophil %.[facility] TownshipNo Panel InformationOrdered By: Josh Sosa on 07-96-8379Vsvcuunjb GFR (CKD-EPI)> 60.0 mL/MinKettering Health Washington TownshipPharmacy Creatinine Clearance (Chem46.13[facility] TownshipNucleated erythrocytes [Presence] in Blood by Automated countOrdered By: Josh Sosa on 04-09-2024 Nucleated RBC Auto Ql (Bld)Nucleated erythrocytes [Presence] in Blood by Automated count0-0.5FOhioHealth Mansfield HospitalPlatelet mean volume Auto (Bld) [Entitic vol]Ordered By: Josh Sosa on 60-47-7011Nfcyexao mean volume (Bld) [Entitic vol]Platelet mean volume [Entitic volume] in Blood by Automated count6.3-10.7FOhioHealth Mansfield HospitalPlatelets Auto (Bld) [#/Vol] Ordered By: Josh Sosa on 42-81-4053Rysbupgir (Bld) [#/Vol]Platelets [#/volume] in Blood by Automated ilzzf695-425CasgaazmdKettering Health Washington TownshipPotassium [Moles/volume] in Serum or PlasmaOrdered By: Josh Sosa on 21-11-1238Ddfzkehgk [Moles/Vol]Potassium [Moles/volume] in Serum or Plasma3.5-5.1FOhioHealth Mansfield HospitalProtein [Mass/volume] in Serum or PlasmaOrdered By: Josh Sosa on 40-32-8281Htfctlx [Mass/Vol]Protein [Mass/volume] in Serum or PlasmaLow6.4-8.9 [facility] TownshipRBC Auto (Bld) [#/Vol]Ordered By: Josh Sosa on 24-29-8378FOK (Bld) [#/Vol]Erythrocytes [#/volume] in Blood by Automated countLow3.60-5.00[facility]acon[facility] Hospitalerum or plasma albumin/globulin mass ratioOrdered By: Josh Sosa on 97-77-5229Sqcfqtb/Globulin [Mass ratio]Serum or plasma albumin/globulin mass ratioProtestant Deaconess Hospitalerum or plasma anion gap determinationOrdered By: Josh Sosa on 81-10-2713Zluij gap [Moles/Vol]Serum or plasma anion gap determination6.0-15.0 [facility] Hospitalodium [Moles/volume] in Serum or PlasmaOrdered By: Josh Sosa on 77-01-3446Qjoxvb [Moles/Vol]Sodium [Moles/volume] in Serum or Sdhwfm184-833OlkfuqabrKettering Health Washington TownshipUrea nitrogen [Mass/volume] in Serum or PlasmaOrdered By: Josh Sosa on 48-80-8687Kajx nitrogen [Mass/Vol]Urea nitrogen [Mass/volume] in Serum or PlasmaHigh7-25[facility] TownshipWBC Auto (Bld) [#/Vol]Ordered By: Josh Sosa on 53-38-7508GYK (Bld) [#/Vol]Leukocytes [#/volume] in Blood by Automated count3.8-11.6FOhioHealth Mansfield HospitalBasic Metabolic Panelon 94-52-0971Rpudp gap [Moles/Vol] 15.3 mmol/LHigh6.0-15.0The [facility] Health Physician GroupComment on above:Performed By: #### BMP ####[facility] [address] [place] [address] USACalcium [Mass/Vol]8.6 mg/dLNormal8.6-10.3[facility] Comment on above:Performed By: #### BMP ####[address] [place] [address] USAChloride [Moles/Vol]103 mmol/XJakkko39-617Dzf [facility] Physician GroupComment on above:Performed By: #### BMP ####[address] [address] USACO2 [Moles/Vol]30.8 mmol/CTxetsh02.0-31.0The [facility] Health Physician GroupComment on above:Performed By: #### BMP ####[address] [address] USACreatinine [Mass/Vol]1.45 mg/dLHigh0.60-1.20[facility] Comment on above:Performed By: #### BMP ####[address] [address] USACreatinine Clr Calc Dvnluchf67.48NormCleveland Clinic Martin South Hospital Physician GroupComment on above:Result Comment: PERFORMED BY:[address] ABHISHEKGaloRadhaHUI, [place] [phone] MEDICAL DIRECTORLLOYD NICHOLSON M.D.Performed By: #### BMP ####[address] [address] USAEstimated GFR37.851 mL/MinNormCleveland Clinic Martin South Hospital Physician [facility] HospitalComment on above:Performed By: #### BMP ####[address] [address] [place] Glucose [Mass/Vol]92 mg/xQAcsuzi39-868Wut [facility] HospitalComment on above:Result Comment: Random Glucose Reference Range is dependent on time and content of last meal. Glucose of more than 200 mg/dL in a nonstressed, ambulatory subject supports the diagnosis of Diabetes Mellitus. ADA recommended reference rangePerformed By: #### BMP ####[address] [address] USAPotassium [Moles/Vol]4.1 mmol/LNormal3.5-5.1 The [facility] Health Physician GroupComment on above:Performed By: #### BMP ####[place] USASodium [Moles/Vol]145 mmol/FTihfno612-162Poe [facility] Physician GroupComment on above: Performed By: #### BMP ####[place] [address] USAUrea nitrogen [Mass/Vol]68 mg/dLHigh7-25The [facility] Physician GroupComment on above:Performed By: #### BMP ####[place] [address] USAComplete Blood Count Auto Diffon 47-50-8837Buuwhiyjl (Bld) [#/Vol]0.0 10*3/uLNormal0.0-0.2The [facility] Physician GroupComment on above:Result Comment: PERFORMED BY:[address] [place], [place] [phone] MEDICAL DIRECTORLLOYD NICHOLSON M.D.Performed By: #### CBC, MG, PHOS, CMP ####[place] [place] Basophils/100 WBC (Bld)0.6 %Normal.The [facility] Health Physician GroupComment on above:Performed By: #### CBC, MG, PHOS, CMP ####[place] [address] USAEosinophils (Bld) [#/Vol]0.2 10*3/uL Normal0.0-0.45The [facility] Health Physician GroupComment on above:Performed By: #### CBC, MG, PHOS, CMP ####[place] [address] USAEosinophils/100 WBC (Bld)3.5 %Normal.[facility] Comment on above:Performed By: #### CBC, MG, PHOS, CMP ####[place] [address] USAErythrocyte distribution width (RBC) [Ratio]14.6 %Ozouyr67.9-15.3The [facility] Health Physician GroupComment on above:Performed By: #### CBC, MG, PHOS, CMP ####[place] [address] USAHematocrit (Bld) [Volume fraction]32.2 %Low34.0-46.4The [facility] Health Physician GroupComment on above:Performed By: #### CBC, MG, PHOS, CMP ####[place] [address] USAHemoglobin (Bld) [Mass/Vol]10.9 g/dLLow11.8-15.4The [facility] Health Physician GroupComment on above:Performed By: #### CBC, MG, PHOS, CMP ####[place] [address] [place] Lymphocytes (Bld) [#/Vol]1.4 10*3/uLNormal1.00-4.8[facility] Comment on above:Performed By: #### CBC, MG, PHOS, CMP ####[place] [address] USALymphocytes/100 WBC (Bld)20.7 %Normal.The [facility] Health Physician GroupComment on above:Performed By: #### CBC, MG, PHOS, CMP ####[address] StreetMCH (RBC) [Entitic mass]28.8 qeVqiiwv47.7-34.3The [facility] Health Physician GroupComment on above:Performed By: #### CBC, MG, PHOS, CMP ####[address] StreetMCV (RBC) [Entitic vol]85.2 wAGqdolu24-968Kyg [facility] Physician GroupComment on above:Performed By: #### CBC, MG, PHOS, CMP ####[place] [address] USAMean Corpuscular HGB Conc33.7 g/eOEvckja01.0-35.0The [facility] Physician GroupComment on above:Performed By: #### CBC, MG, PHOS, CMP ####[place] [address] [place] Monocytes (Bld) [#/Vol]1.4 10*3/uLHigh0.0-0.8[facility] Comment on above:Performed By: #### CBC, MG, PHOS, CMP ####[place] [address] USAMonocytes/100 WBC (Bld)20.5 % Normal.The [facility] Health Physician GroupComment on above:Performed By: #### CBC, MG, PHOS, CMP ####[place] [address] USANeutrophils (Bld) [#/Vol]3.7 10*3/uLNormal1.8-7.7The [facility] Health Physician GroupComment on above:Performed By: #### CBC, MG, PHOS, CMP ####[place] [address] USANeutrophils/100 WBC (Bld)54.7 %Normal.The [facility] Health Physician GroupComment on above:Performed By: #### CBC, MG, PHOS, CMP ####[place] [address] USANRBC%0.0 /100{WBC}Normal0-0.5The [facility] Health Physician GroupComment on above:Performed By: #### CBC, MG, PHOS, CMP ####[place] [address] USAPlatelet mean volume (Bld) [Entitic vol]7.7 fLNormal6.3-10.7The [facility] Health Physician GroupComment on above:Performed By: #### CBC, MG, PHOS, CMP ####[place] [address] USAPlatelets (Bld) [#/Vol]320 10*3/uL Hprmpv355-148Ylq [facility] Physician GroupComment on above:Performed By: #### CBC, MG, PHOS, CMP ####[place] [address] USARBC (Bld) [#/Vol]3.78 10*6/uLNormal3.60-5.00The [facility] Health Physician GroupComment on above:Performed By: #### CBC, MG, PHOS, CMP ####[place] [address] USAWBC (Bld) [#/Vol]6.7 10*3/uLNormal3.8-11.6The [facility] Health Physician GroupComment on above:Performed By: #### CBC, MG, PHOS, CMP ####[place] [address] USAComprehensive Metabolic Panelon 88-67-0192Gcvhecw [Mass/Vol]3.1 g/dLLow3.5-5.7The [facility] Physician GroupComment on above: Performed By: #### CBC, MG, PHOS, CMP ####[place] [address] USAAlbumin/Globulin [Mass ratio]1.3 {ratio}Normal The [facility] Health Physician GroupComment on above:Performed By: #### CBC, MG, PHOS, CMP ####[place] [address] USAALP [Catalytic activity/Vol]52 U/HDaptar15-329Jke [facility] Physician GroupComment on above:Performed By: #### CBC, MG, PHOS, CMP ####[place] [address] USAALT [Catalytic activity/Vol]13 U/L Normal7-52The [facility] Health Physician GroupComment on above:Performed By: #### CBC, MG, PHOS, CMP ####[place] [address] USAAnion gap [Moles/Vol]11.3 mmol/LNormal6.0-15.0The [facility] Physician GroupComment on above:Performed By: #### CBC, MG, PHOS, CMP ####[place] [address] USAAST [Catalytic activity/Vol]14 U/GWimbiz70-36Yeq [facility] Physician GroupComment on above: Performed By: #### CBC, MG, PHOS, CMP ####[place] [address] USABilirubin [Mass/Vol]0.9 mg/dLNormal0.3-1.0The [facility] Physician GroupComment on above:Performed By: #### CBC, MG, PHOS, CMP ####[place] [address] USACalcium [Mass/Vol]8.5 mg/dLLow8.6-10.3The [facility] Health Physician GroupComment on above: Performed By: #### CBC, MG, PHOS, CMP ####[place] [address] USAChloride [Moles/Vol]107 mmol/PXsxybs39-540Zvq [facility] Physician GroupComment on above:Performed By: #### CBC, MG, PHOS, CMP ####[place] [address] USACO2 [Moles/Vol]29.4 mmol/IMwewao88.0-31.0The [facility] Physician GroupComment on above:Performed By: #### CBC, MG, PHOS, CMP ####[place] [address] USACreatinine [Mass/Vol]1.37 mg/dL Significant change up0.60-1.20The [facility] Health Physician GroupComment on above: Performed By: #### CBC, MG, PHOS, CMP ####[place] [address] USACreatinine Clr Calc Xrrpkucf21.26NormCleveland Clinic Martin South Hospital Physician GroupComment on above:Performed By: #### CBC, MG, PHOS, CMP ####[place] [address] [place] Estimated GFR40.518 mL/MinNormCleveland Clinic Martin South Hospital Physician GroupComment on above: Performed By: #### CBC, MG, PHOS, CMP ####[address] [place] [address] USAGlobulin (S) [Mass/Vol]2.4 g/dLNormalThe Atrium Health Physician GroupComment on above:Performed By: #### CBC, MG, PHOS, CMP ####[address] [address] USAGlucose [Mass/Vol]95 mg/iGPuinhl42-993Frr [facility] Physician GroupComment on above: Result Comment: Random Glucose Reference Range is dependent on time and content of last meal. Glucose of more than 200 mg/dL in a nonstressed, ambulatory subject supports the diagnosis of Diabetes Mellitus. ADA recommended reference rangePerformed By: #### CBC, MG, PHOS, CMP ####[place] [id number] USAPotassium [Moles/Vol]3.7 mmol/LNormal 3.5-5.1The [facility] Health Physician GroupComment on above:Performed By: #### CBC, MG, PHOS, CMP ####[place] [address] USAProtein [Mass/Vol]5.5 g/dLLow6.4-8.9The [facility] Health Physician GroupComment on above:Performed By: #### CBC, MG, PHOS, CMP ####[place] [address] USASodium [Moles/Vol]144 mmol/L Significant change shaa248-834Flp [facility] Physician GroupComment on above: Performed By: #### CBC, MG, PHOS, CMP ####[place] [address] USAUrea nitrogen [Mass/Vol]91 mg/dLSignificant change up7-25The [facility] Health Physician GroupComment on above:Performed By: #### CBC, MG, PHOS, CMP ####[address] [address] USAMagnesiumon 66-28-4213Zdtreqcwd [Mass/Vol]2.0 mg/dLNormal1.9-2.7The [facility] Physician GroupComment on above:Result Comment: PERFORMED BY:[address] [place], [place] [phone] MEDICAL DIRECTORLLOYD NICHOLSON M.D.Performed By: #### CBC, MG, PHOS, CMP ####[address] [place] [address] [facility] Magnesium [Mass/volume] in Serum or PlasmaOrdered By: Josh Sosa on 04-08-2024 Magnesium [Mass/Vol]Magnesium [Mass/volume] in Serum or Plasma1.9-2.7FOhioHealth Mansfield HospitalPhosphate [Mass/volume] in Serum or PlasmaOrdered By: Josh Sosa on 33-36-5446Ekhshuptw [Mass/Vol]Phosphate [Mass/volume] in Serum or Plasma2.5-4.5FOhioHealth Mansfield HospitalPhosphoruson 12-54-1116Vzvybjscm [Mass/Vol]3.9 mg/dLNormal2.5-4.5The [facility] Physician GroupComment on above: Performed By: #### CBC, MG, PHOS, CMP ####[address] [address] USAAppearance of UrineOrdered By: Romel William on 37-56-4453Eziqjsluar (U)Urine appearanceCleTwin City Hospital B-Type Natriuretic Peptideon 07-18-5195Grdhvoapvur peptide B (Bld) [Mass/Vol] 193.0 pg/mLHigh5-100The [facility] Physician GroupComment on above:Result Comment: PERFORMED BY:[address] [place], [place] [phone] MEDICAL DIRECTORLLOYD NICHOLSON M.D. Performed By: #### BNP, HS TROP, CMP, SCAN CBC, CK, MG ####[address] [address] USABilirubin Test strip Ql (U) Ordered By: Romel William on 48-86-4895Gisvpnnns Ql (U)Bilirubin.total [Presence] in Urine by Test stripNegativeKettering Health Washington TownshipCT head/brain wo conon 66-03-0681NK head/brain wo conNormalThe [facility] Physician [facility] HospitalColor Auto (U)Ordered By: Romel William on 06-38-9050Fdxtb (U)Color of Urine by Auto [facility] CenterComprehensive Metabolic Panelon 19-58-2377Lxmzhrb [Mass/Vol]3.8 g/dLNormal3.5-5.7The [facility] Comment on above:Performed By: #### BNP, HS TROP, CMP, SCAN CBC, CK, MG ####[address] [place] [address] [place] Albumin/Globulin [Mass ratio]1.4 {ratio}NormalThe [facility] Physician [facility] Comment on above:Performed By: #### BNP, HS TROP, CMP, SCAN CBC, CK, MG ####[address] [address] USAALP [Catalytic activity/Vol]56 U/ACdhosx82-345Qes [facility] Physician GroupComment on above:Performed By: #### BNP, HS TROP, CMP, SCAN CBC, CK, MG ####[address] [place] [address] USAALT [Catalytic activity/Vol]16 U/LNormal7-52The [facility] Physician GroupComment on above: Performed By: #### BNP, HS TROP, CMP, SCAN CBC, CK, MG ####[address] [place] [address] USAAnion gap [Moles/Vol]18.0 mmol/LHigh6.0-15.0The [facility] Physician GroupComment on above:Performed By: #### BNP, HS TROP, CMP, SCAN CBC, CK, MG ####[address] [place] [address] USAAST [Catalytic activity/Vol]20 U/ZGlpcxr04-09 The [facility] Physician GroupComment on above:Performed By: #### BNP, HS TROP, CMP, SCAN CBC, CK, MG ####[address] [address] USABilirubin [Mass/Vol]0.8 mg/dLNormal0.3-1.0The [facility] Physician GroupComment on above:Performed By: #### BNP, HS TROP, CMP, SCAN CBC, CK, MG ####[place] [address] USACalcium [Mass/Vol]9.1 mg/dLNormal8.6-10.3The [facility] Comment on above:Performed By: #### BNP, HS TROP, CMP, SCAN CBC, CK, MG ####[place] [address] USAChloride [Moles/Vol]94 mmol/KQbh55-056Xmr [facility] Physician GroupComment on above: Performed By: #### BNP, HS TROP, CMP, SCAN CBC, CK, MG ####[place] [address] USACO2 [Moles/Vol]30.0 mmol/L Fvmloo38.0-31.0The [facility] Physician GroupComment on above:Performed By: #### BNP, HS TROP, CMP, SCAN CBC, CK, MG ####[place] [address] USACreatinine [Mass/Vol]2.96 mg/dLHigh0.60-1.20The [facility] Physician GroupComment on above:Performed By: #### BNP, HS TROP, CMP, SCAN CBC, CK, MG ####[place] [address] USACreatinine Clr Calc Jcaqdrvq42.24NoNovant Health Rehabilitation Hospital Physician [facility] Comment on above:Performed By: #### BNP, HS TROP, CMP, SCAN CBC, CK, MG ####[place] [address] [place] Estimated GFR16.075 mL/MinNoNovant Health Rehabilitation Hospital Physician GroupComment on above: Performed By: #### BNP, HS TROP, CMP, SCAN CBC, CK, MG ####[place] [address] USAGlobulin (S) [Mass/Vol]2.8 g/dL NormalThe [facility]rium Health Physician GroupComment on above:Performed By: #### BNP, HS TROP, CMP, SCAN CBC, CK, MG ####[address] [place] [address] USAGlucose [Mass/Vol]109 mg/vRKdwj44-123Rke [facility] Physician GroupComment on above:Result Comment: Random Glucose Reference Range is dependent on time and content of last meal. Glucose of more than 200 mg/dL in a nonstressed, ambulatory subject supports the diagnosis of Diabetes Mellitus. ADA recommended reference rangePerformed By: #### BNP, HS TROP, CMP, SCAN CBC, CK, MG ####[address] [place] [address] [place] Potassium [Moles/Vol]4.0 mmol/LNormal3.5-5.1The [facility]ician [facility] HospitalComment on above:Performed By: #### BNP, HS TROP, CMP, SCAN CBC, CK, MG ####[place] [address] USAProtein [Mass/Vol]6.6 g/dLNormal6.4-8.9The [facility] Physician GroupComment on above:Performed By: #### BNP, HS TROP, CMP, SCAN CBC, CK, MG ####[place] [address] USASodium [Moles/Vol]138 mmol/XMxmwdv262-262Cjc [facility] Physician GroupComment on above:Performed By: #### BNP, HS TROP, CMP, SCAN CBC, CK, MG ####[place] [address] USAUrea nitrogen [Mass/Vol]138 mg/dLHigh7-25The [facility] Comment on above:Performed By: #### BNP, HS TROP, CMP, SCAN CBC, CK, MG ####[place] [address] USACreatine Kinaseon 95-13-2772KK [Catalytic activity/Vol]77 U/LNmprch42-397Eaa [facility] Physician GroupComment on above:Performed By: #### BNP, HS TROP, CMP, SCAN CBC, CK, MG ####[facility] [place] [address] [place] Creatine kinase [Enzymatic activity/volume] in Serum or PlasmaOrdered By: Romel William on 74-35-5235PQ [Catalytic activity/Vol]Creatine kinase [Enzymatic activity/volume] in Serum or Ogqlva63-598FiescmzfiKettering Health Washington TownshipECG 12 lead ECGon 13-99-3400RFQ 12 lead ECGNoFirelands Regional Medical Center Erythrocyte morphology finding [Identifier] in BloodOrdered By: Romel William on 14-02-7084SSB morphology finding Nom (Bld)RBC morphologyKettering Health Washington TownshipGlucose [Mass/volume] in Urine by Test stripOrdered By: Romel William on 51-78-3695Lzydqiu Test strip (U) [Mass/Vol]Glucose [Mass/volume] in Urine by Test stripNoalKettering Health Washington TownshipHemoglobin Test strip Ql (U)Ordered By: Romel William on 19-99-5522Byotvjixqt Ql (U)Hemoglobin [Presence] in Urine by Test stripNegWVUMedicine Barnesville Hospital Hypochromia LM Ql (Bld)Ordered By: Romel William on 85-05-1357Ahhxylxmawu Ql (Bld)Hypochromia [Presence] in Blood by Light microscopyKettering Health Washington TownshipKetones Test strip Ql (U)Ordered By: Romel William on 04-07-2024 Ketones Ql (U)Ketones [Presence] in Urine by Test stripNegWVUMedicine Barnesville HospitalLeukocyte esterase [Presence] in Urine by Test strip Ordered By: Romel William on 92-76-9770Nbaenhoaw esterase Test strip Ql (U) Leukocyte esterase [Presence] in Urine by Test stripNegWVUMedicine Barnesville HospitalMagnesiumon 45-98-6946Ufhnuxmxy [Mass/Vol]2.1 mg/dLNormal1.9-2.7 The [facility] Physician GroupComment on above:Result Comment: PERFORMED BY:[address] [place], [place] [phone] MEDICAL DIRECTORLLOYD NICHOLSON M.D.Performed By: #### BNP, HS TROP, CMP, SCAN CBC, CK, MG ####[facility] [place] [address] USAMonocyte distribution width [Entitic volume] in Blood by AutomatedOrdered By: Romel William on 38-39-9620Pdviduim distribution width Auto (Bld) [Entitic vol]Monocyte distribution width [Entitic volume] in Blood by AutomatedHigh0.00-20.00[facility] TownshipComment on above:For adults in ED, MDW > 20.0 may be associated with a higher risk of sepsis during the first 12 hrs of hospital admissionNatriuretic peptide B [Mass/Vol]Ordered By: Romel William on 28-46-0053Lfspwkpzccj peptide B (Bld) [Mass/Vol]BNP ser/plasHigh5-100[facility] Washington TownshipNitrite Test strip Ql (U)Ordered By: Romel William on 84-89-9769Jwpqeka Ql (U)Nitrite [Presence] in Urine by Test stripNegativeKettering Health Washington Township Platelet adequacy [Presence] in Blood by Light microscopyOrdered By: Romel William on 82-88-9945Glikpnljo LM Ql (Bld)Platelet adequacy [Presence] in Blood by Light microscopyNormVeterans Health AdministrationPlatelet morphology finding [Identifier] in BloodOrdered By: Romel William on 36-59-6048Kanfffdn morphology finding Nom (Bld)Platelet morphology finding [Identifier] in Blood NormalKettering Health Washington TownshipProtein Test strip (U) [Mass/Vol]Ordered By: Romel William on 09-14-4633Cywvdpy (U) [Mass/Vol]Protein [Mass/volume] in Urine by Test stripNegBarnesville Hospitalcan and CBCon 56-72-2545Gjnobyxiz (Bld) [#/Vol]0.1 10*3/uLNormal0.0-0.2The [facility] Physician GroupComment on above:Result Comment: PERFORMED BY:[facility] [place], [place] [phone] MEDICAL DIRECTORLLOYD NICHOLSON M.D.Performed By: #### BNP, HS TROP, CMP, SCAN CBC, CK, MG ####[place] [id number] USABasophils/100 WBC (Bld)0.6 %Normal.The [facility] Physician GroupComment on above:Performed By: #### BNP, HS TROP, CMP, SCAN CBC, CK, MG ####[place] [address] USAEosinophils (Bld) [#/Vol]0.3 10*3/uLNormal0.0-0.45The [facility] Physician GroupComment on above: Performed By: #### BNP, HS TROP, CMP, SCAN CBC, CK, MG ####[place] [address] USAEosinophils/100 WBC (Bld)2.6 % Normal.The [facility] Physician GroupComment on above:Performed By: #### BNP, HS TROP, CMP, SCAN CBC, CK, MG ####[place] [id number] USAErythrocyte distribution width (RBC) [Ratio]14.5 % Irsqge11.9-15.3The [facility] Physician GroupComment on above:Performed By: #### BNP, HS TROP, CMP, SCAN CBC, CK, MG ####[place] [address] USAHematocrit (Bld) [Volume fraction]34.3 %Normal 34.0-46.4The [facility] Physician GroupComment on above:Performed By: #### BNP, HS TROP, CMP, SCAN CBC, CK, MG ####[place] [address] USAHemoglobin (Bld) [Mass/Vol]11.4 g/dLLow11.8-15.4The [facility] Physician GroupComment on above:Performed By: #### BNP, HS TROP, CMP, SCAN CBC, CK, MG ####[place] [id number] USAHypochromasiaSlightNormalThe [facility]rium Health Physician GroupComment on above: Performed By: #### BNP, HS TROP, CMP, SCAN CBC, CK, MG ####[place] [address] USALymphocytes (Bld) [#/Vol]1.7 10*3/uLNormal1.00-4.8The [facility] Physician GroupComment on above:Performed By: #### BNP, HS TROP, CMP, SCAN CBC, CK, MG ####[place] [address] USALymphocytes/100 WBC (Bld)13.7 %Normal.The [facility] Health Physician GroupComment on above:Performed By: #### BNP, HS TROP, CMP, SCAN CBC, CK, MG ####[address] (RBC) [Entitic mass]28.0 lrPonodu17.7-34.3The [facility] Physician GroupComment on above:Performed By: #### BNP, HS TROP, CMP, SCAN CBC, CK, MG ####[address] (RBC) [Entitic vol]84.2 eTTcxhfx62-155Boo [facility] Physician GroupComment on above:Performed By: #### BNP, HS TROP, CMP, SCAN CBC, CK, MG ####[place] [address] USAMean Corpuscular HGB Conc33.2 g/kTLrswub39.0-35.0The [facility] Physician GroupComment on above: Performed By: #### BNP, HS TROP, CMP, SCAN CBC, CK, MG ####[place] [address] USAMonocytes (Bld) [#/Vol]1.7 10*3/uLHigh0.0-0.8The [facility] Physician GroupComment on above:Performed By: #### BNP, HS TROP, CMP, SCAN CBC, CK, MG ####[address] [address] USAMonocytes/100 WBC (Bld)20.54 %High0.00-20.00The [facility] Health Physician GroupComment on above:Result Comment: For adults in ED, MDW > 20.0 may be associated with a higher risk of sepsis during the first 12 hrs of hospital admissionPerformed By: #### BNP, HS TROP, CMP, SCAN CBC, CK, MG ####[address] [address] [place] Monocytes/100 WBC (Bld)14.0 %Normal.The [facility]rium Health Physician GroupComment on above:Performed By: #### BNP, HS TROP, CMP, SCAN CBC, CK, MG ####[place] [address] USANeutrophils (Bld) [#/Vol]8.4 10*3/uLHigh1.8-7.7The At[facility] Health Physician GroupComment on above: Performed By: #### BNP, HS TROP, CMP, SCAN CBC, CK, MG ####[address] [address] USANeutrophils/100 WBC (Bld)69.1 % Normal.The [facility] Health Physician GroupComment on above:Performed By: #### BNP, HS TROP, CMP, SCAN CBC, CK, MG ####[place] [id number] USANRBC%0.1 /100{WBC}Normal0-0.5The [facility] Health Physician GroupComment on above:Performed By: #### BNP, HS TROP, CMP, SCAN CBC, CK, MG ####[place] [phone] USAPlatelet EstimateNormalNormalNormalThe Atrium Health Physician GroupComment on above: Performed By: #### BNP, HS TROP, CMP, SCAN CBC, CK, MG ####[place] [phone] USAPlatelet mean volume (Bld) [Entitic vol]7.8 fLNormal6.3-10.7The [facility] Health Physician GroupComment on above: Performed By: #### BNP, HS TROP, CMP, SCAN CBC, CK, MG ####[place] [address] USAPlatelet MorphologyNormalNormal NormalThe Atrium Health Physician GroupComment on above:Result Comment: PERFORMED BY:[address] [place], [place] [phone] MEDICAL DIRECTORLLOYD NICHOLSON M.D.Performed By: #### BNP, HS TROP, CMP, SCAN CBC, CK, MG ####[place] [phone] USAPlatelets (Bld) [#/Vol]395 10*3/yIOdqaws736-946Qqf [facility] Health Physician GroupComment on above:Performed By: #### BNP, HS TROP, CMP, SCAN CBC, CK, MG ####[place] [phone] USARBC (Bld) [#/Vol]4.07 10*6/uLNormal3.60-5.00The [facility] Health Physician GroupComment on above:Performed By: #### BNP, HS TROP, CMP, SCAN CBC, CK, MG ####[place] [address] USAWBC (Bld) [#/Vol]12.2 10*3/uLHigh3.8-11.6The [facility] Health Physician GroupComment on above:Performed By: #### BNP, HS TROP, CMP, SCAN CBC, CK, MG ####[place] [address] USASpecific gravity Test strip (U) [Rel density]Ordered By: Romel William on 85-84-0552Ypmbdxok gravity (U) [Rel density]Specific gravity of Urine by Test strip1.001-1.030[facility] TownshipTroponin I High Sensitivityon 86-64-6146Bcdpvgsq I High Qpzomfamyca84.9 pg/mLHigh0.0-15.0The [facility] Health Physician GroupComment on above: Result Comment: PERFORMED BY:[address] [place], [place] [phone] MEDICAL DIRECTORLLOYD YANEZ M.D.Performed By: #### BNP, HS TROP, CMP, SCAN CBC, CK, MG ####[address] [place] [address] USATroponin I.cardiac [Mass/volume] in Serum or Plasma by Detection limit <= 0.01 ng/Ordered By: Romel William on 28-94-7547Ffpkhhhm I.cardiac DL <= 0.01 ng/mL [Mass/Vol] Troponin I.cardiac [Mass/volume] in Serum or Plasma by Detection limit <= 0.01 ng/High0.0-15.0[facility] TownshipUrinalysison 04-07-2024 Appearance (U)ClearNormalClearThe Atrium Health Physician GroupComment on above: Order Comment: Name Collection Type:: Clean-Voided MidstreamPerformed By: #### UA ####[address] [address] [place] Bilirubin,UrineNegativeNormalNegativeThe Atrium Health Physician GroupComment on above:Order Comment: Name Collection Type:: Clean-Voided MidstreamPerformed By: #### UA ####[address] [address] USAColor (U)ColorlessNormalYellowThe Atrium Health Physician GroupComment on above: Order Comment: Name Collection Type:: Clean-Voided MidstreamPerformed By: #### UA ####[address] [address] [place] Glucose Ql (U)NormalNormalNormKindred Healthcaree At[facility] Health Physician GroupComment on above: Order Comment: Name Collection Type:: Clean-Voided MidstreamPerformed By: #### UA ####[address] [address] [place] Ketones Ql (U)NegativeNormalNegativeThe Atrium Health Physician GroupComment on above:Order Comment: Name Collection Type:: Clean-Voided MidstreamPerformed By: #### UA ####[address] [address] USALeukocyte esterase Test strip Ql (U)NegativeNormalNegativeThe Atrium Health Physician GroupComment on above:Order Comment: Name Collection Type:: Clean- Voided MidstreamPerformed By: #### UA ####[address] [address] USANitrite,UrineNegativeNormalNegativeThe Atrium Health Physician GroupComment on above:Order Comment: Name Collection Type:: Clean-Voided MidstreamPerformed By: #### UA ####[address] [address] USAOccult Blood,UrineNegativeNormal NegativeThe Atrium Health Physician GroupComment on above:Order Comment: Name Collection Type:: Clean-Voided MidstreamResult Comment: PERFORMED BY:[address] [place], [place] [phone] MEDICAL DIRECTORLLOYD NICHOLSON M.D.Performed By: #### UA ####[address] [address] USApH (U)5.0 [pH]Normal 5.0-9.0The [facility] Health Physician GroupComment on above:Order Comment: Name Collection Type:: Clean-Voided MidstreamPerformed By: #### UA ####[address] [address] USAProtein,UrineNegative NormalNegativeThe Atrium Health Physician GroupComment on above:Order Comment: Name Collection Type:: Clean-Voided MidstreamPerformed By: #### UA ####[address] [address] USASpecificy [place],Urine1.790Fvbidj1.001-1.030The At[facility] Health Physician GroupComment on above:Order Comment: Name Collection Type:: Clean-Voided MidstreamPerformed By: #### UA ####[facility] [address] [place] [address] USAUrobilinogen,UrineNormalNormalNormalThe Atrium Health Physician GroupComment on above:Order Comment: Name Collection Type:: Clean-Voided MidstreamPerformed By: #### UA ####[facility] [address] [place] [address] USAUrobilinogen Test strip (U) [Mass/Vol]Ordered By: Romel William on 04-07-2024 Urobilinogen (U) [Mass/Vol]Urobilinogen [Mass/volume] in Urine by Test strip NormalKettering Health Washington TownshipXR chest 2V*on 39-56-9406TD chest 2V* NormalThe Atrium Health Physician GrouppH Test strip (U)Ordered By: Romel William on 22-54-1691mK (U)pH of Urine by Test strip5.0-9.0[facility] TownshipEstimated glomerular filtration rate (GFR) non- Americanon 63-31-1409LQJ/1.73 sq M.predicted among non-blacks MDRD (S/P/Bld) [Vol rate/Area]Estimated glomerular filtration rate (GFR) non- AmericanLow>=60 mL/min/1.73m [address] [place], [place] [address]Laboratory - Chemistry and Chemistry - challengeon 44-34-5492Ekauxgh [Mass/Vol]9.8 mg/dL8.5-10.1FOhioHealth Mansfield HospitalChloride [Moles/Vol]100 mmol/Z67-811GsvhktaeiKettering Health Washington TownshipCO2 [Moles/Vol]31.8 mmol/L21.0-32.0[facility] TownshipCreatinine [Mass/Vol]1.74 mg/dLHigh0.55-1.02[facility] TownshipGFR/1.73 sq M.predicted MDRD (S/P/Bld) [Vol rate/Area]35 mL/min/{1.73_m2} Low>=60 mL/min/1.73m [address] [place], [place] [address]Glucose [Mass/Vol]96 mg/hC10-258XduxldnbaKettering Health Washington TownshipPotassium [Moles/Vol]3.8 mmol/L 3.5-5.1FSelect Medical Specialty Hospital - Cleveland-Fairhillodium [Moles/Vol]141 mmol/S433-178 [facility] TownshipUrea nitrogen [Mass/Vol]48.0 mg/dLHigh7.0-18.0 [facility] TownshipUrea nitrogen/Creatinine [Mass ratio]27.6 mg/mg [facility]aconess Hospitalerum or plasma anion gap determinationon 45-16-3423Bppqz gap [Moles/Vol]Serum or plasma anion gap determinationKettering Health Washington TownshipXR Sinuses 3 Viewson 79-82-2312Xeq[place] [address] XRay Report Signed Patient: RENUKA OWEN MR#: [id number] : 1950 Acct:[id number] Age/Sex: 73 / F ADM Date: 03/23/24 Loc: RAD Attending Dr: Chuck Cope M.D. Ordering Physician: Chuck Cope M.D. Date of Service: 03/23/24 Procedure(s): XR sinus min 3V Accession Number(s): [id number] cc: Sylvester Jacob D.O.; Chuck Cope M.D. [place] [address] Patient Name: RENUKA OWEN MRN: [id number] date: 1950 Sex: F Assigned Patient Location: [facility] Current Patient Location: Accession/Order Number: [id number] Exam Date: 03/23/2024 14:19 Report Date: 03/24/2024 [...] M.D. Signed By: 03/24/241551 DD/ 48 TD/TT: Payloader Operator:BASIAadiology, Radiologist, - 03/24/2024 [place] [address] XRay Report Signed Patient: RENUKA OWEN MR#: [id number] : 1950 Acct:[id number] Age/Sex: 73 / F ADM Date: 03/23/24 Loc: RAD Attending Dr: Chuck Cope M.D. Ordering Physician: Chuck Cope M.D. Date of Service: 03/23/24 Procedure(s): XR sinus min 3V Accession Number(s): [id number] cc: Sylvester Jacob D.O.; Chuck Cope M.D. The [place] [address] Patient Name: RENUKA OWEN MRN: [id number] date: 1950 Sex: F Assigned Patient Location: [facility] Current Patient Location: Accession/Order Number: [id number] Exam Date: 03/23/2024 14:19 Report Date: 03/24/2024 [...] M.D. Signed By: 03/24/241551 DD/ 48 TD/TT: Payloader Operator: ROHITH HealthcareRadiology Study observation (narrative)NOM HealthcareXR Sinuses 3 ViewsOrdered By: Radiologist Radiology on 06-35-2362[facility] Work Phone: XR lumbar spine 2-3V*on 91-41-8745XC lumbar spine 2-3V*NormalThe Atrium Health Physician GroupCNPNon 82-93-5660OMHUKncbnflch (HEMTSA) RENUKA OWEN ([id number]) 1950 F Date Time Provider Department 01/06/24 [facility]INY MART HEMTSYissel During your visit today, we recorded the following information about you: Triny Mart RN 01/06/2024 11:46 AM Signed Pt calls to ask when her mammogram is due. Pt's record reviewed. Last Mamm done on 02/08/23 @ [facility]. 12 month f/u recommended. Order for Mamm faxed to [facility] on 06/22/23. Pt notified of the above. Advised she call [facility] to schedule. Pt verbalizes understanding and [...] 06/20/2020 Encounter Status:Closed by TRINY MART on 01/06/24NoUC HealthEstimated glomerular filtration rate (GFR) non- Americanon 77-13-1498DEJ/1.73 sq M.predicted among non-blacks MDRD (S/P/Bld) [Vol rate/Area]36 mL/min/{1.73_m2}Low>=60[facility] TownshipLaboratory - Chemistry and Chemistry - challengeon 74-96-4721Ikchxvy [Mass/Vol]9.7 mg/dL 8.5-10.1FOhioHealth Mansfield HospitalChloride [Moles/Vol]102 mmol/L98-107 [facility] TownshipCO2 [Moles/Vol]29.7 mmol/L21.0-32.0[facility] TownshipCreatinine [Mass/Vol]1.43 mg/dLHigh0.55-1.02[facility] TownshipGFR/1.73 sq M.predicted MDRD (S/P/Bld) [Vol rate/Area]44 mL/min/{1.73_m2}Low>=60[facility] TownshipGlucose [Mass/Vol]96 mg/lG77-618JulchwxscKettering Health Washington TownshipMagnesium [Mass/Vol]2.5 mg/dLHigh 1.8-2.4FOhioHealth Mansfield HospitalPotassium [Moles/Vol]4.2 mmol/L3.5-5.1 [facility] Hospitalodium [Moles/Vol]140 mmol/T500-475VwukbiaydKettering Health Washington TownshipTSH Qn2.005 m[IU]/L0.358-3.740[facility] TownshipUrea nitrogen [Mass/Vol]61.0 mg/dLHigh7.0-18.0[facility] TownshipUrea nitrogen/Creatinine [Mass ratio]42.7 mg/mgProtestant Deaconess Hospitalerum or plasma anion gap determinationon 10-30-9544Vdjhg gap [Moles/Vol] 12.5 mmol/LFOhioHealth Mansfield HospitalBasophils Auto (Bld) [#/Vol]on 82-81-3318Setibtaor (Bld) [#/Vol]0.05 10*3/uL<0.11[facility] TownshipBasophils/100 WBC Auto (Bld)on 81-93-0591Yvucdiwix/100 WBC (Bld)0.8 % [facility] TownshipBlood manual differential comment interpretation narrativeon 98-34-0946Kpkhvp differential comment Mckay (Bld) [Interp]AutoKettering Health Washington TownshipEosinophils/100 WBC Auto (Bld)on 48-40-9975Aujzxvrpvbz/100 WBC (Bld)5.8 %[facility] Erythrocyte distribution width Auto (RBC) [Ratio]on 41-20-5624Zzkyvyeckfy distribution width (RBC) [Ratio]14.9 %11.5-15.0[facility] Hematocrit Auto (Bld) [Volume fraction]on 50-33-4702Qoznivaohw (Bld) [Volume fraction]36.0 %36.0-46.0[facility] TownshipHemoglobin [Mass/volume] in Bloodon 36-54-1810Zzcjyarakf (Bld) [Mass/Vol]11.4 g/dL11.5-15.5 [facility] TownshipLaboratory - Chemistry and Chemistry - challengeon 40-61-9853Iikfotn [Mass/Vol]4.4 g/dL3.9-4.9[facility] TownshipALP [Catalytic activity/Vol]67 U/E11-443RiuevncxbKettering Health Washington TownshipALT [Catalytic activity/Vol]8 U/L7-38[facility] TownshipAST [Catalytic activity/Vol]16 U/N02-39ZkndgssykKettering Health Washington TownshipBilirubin [Mass/Vol]0.4 mg/dL0.2-1.3FOhioHealth Mansfield HospitalCalcium [Mass/Vol] 10.6 mg/dL8.5-10.2FOhioHealth Mansfield HospitalChloride [Moles/Vol]99 mmol/L 97-105[facility] TownshipCO2 [Moles/Vol]30 mmol/K78-01WvdnmjksxKettering Health Washington TownshipCreatinine [Mass/Vol]1.29 mg/dL0.58-0.96[facility] TownshipGlucose [Mass/Vol]109 mg/xK95-65VmqbgbyedKettering Health Washington TownshipComment on above:The [place] Diabetes Association (ADA) provides guidance for cutoff [...] diabetes.Reference: [employer] in Diabetes 2016, [place] Diabetes Association. Diabetes Care. 2016.39(Suppl 1).Potassium [Moles/Vol]4.8 mmol/L 3.7-5.1FOhioHealth Mansfield HospitalProtein [Mass/Vol]7.3 g/dL6.3-8.0 [facility]acon[facility] Hospitalodium [Moles/Vol]138 mmol/F913-281IphpyoecgKettering Health Washington TownshipUrea nitrogen [Mass/Vol]45 mg/dL7-21[facility] TownshipLaboratory - Hematology and Cell countson 79-32-2279Yiwunbvpqad (Bld) [#/Vol]0.37 10*3/uL<0.46[facility] TownshipImmature granulocytes/100 WBC (Bld)0.2 %[facility] TownshipLeukocytes [#/volume] corrected for nucleated erythrocytes in Blood by Automated counon 07-84-1894TOC corrected for nucl RBC Auto (Bld) [#/Vol]6.43 k/uL3.70-11.00 [facility] TownshipLymphocytes Auto (Bld) [#/Vol]on 06-22-2023 Lymphocytes (Bld) [#/Vol]1.86 10*3/uL1.00-4.00[facility] Lymphocytes/100 WBC Auto (Bld)on 33-12-4586Wufgmorzcyg/100 WBC (Bld)28.9 % [facility] TownshipMCH Auto (RBC) [Entitic mass]on 27-87-3120OKZ (RBC) [Entitic mass]27.5 pg26.0-34.0[facility] TownshipMCHC Auto (RBC) [Mass/Vol]on 75-82-5113EWFT (RBC) [Mass/Vol]31.7 g/dL30.5-36.0[facility] TownshipMCV Auto (RBC) [Entitic vol]on 20-09-9801PNR (RBC) [Entitic vol]86.7 fL80.0-100.0[facility] TownshipMonocytes Auto (Bld) [#/Vol]on 10-06-7848Yuorduckc (Bld) [#/Vol]0.72 10*3/uL<0.87[facility] TownshipMonocytes/100 WBC Auto (Bld)on 53-35-2151Xqwtdscby/100 WBC (Bld)11.2 %[facility] Medical CenterNeutrophils Auto (Bld) [#/Vol]on 91-66-8089Cktklbvvgnk (Bld) [#/Vol]3.42 10*3/uL1.45-7.50[facility] TownshipNeutrophils/100 WBC Auto (Bld)on 97-75-4740Eezwfmdlbxg/100 WBC (Bld)53.1 %[facility] TownshipNo Panel Informationon 08-89-6313DO 27.2922.2 U/mL<38.6FOhioHealth Mansfield HospitalComment on above:The CA27.29 test was performed using the Siemens Bellicum [employer]aur XP chemiluminometric immunoassay method. Results obtained with different assay methods or kits cannot be used interchangeably.Estimated GFR (CKD-EPI)44 mL/min/1.73m???>=60[facility] TownshipComment on above:Estimated Glomerular Filtration Rate (eGFR) is [...] reflect actual GFR. Immature Granulocyte # (Auto)<0.03 k/uL<0.10[facility] Nucleated RBC Auto (Bld) [#/Vol]on 83-83-5974Hlovqzurs RBC (Bld) [#/Vol]10*3/uL <0.01[facility] TownshipNucleated erythrocytes [Presence] in Blood by Automated counton 95-65-9434Khbhagfsy RBC Auto Ql (Bld)0.0 /100{WBC} [facility] TownshipPlatelet mean volume Auto (Bld) [Entitic vol]on 22-12-2579Ikgeawaw mean volume (Bld) [Entitic vol]9.2 fL9.0-12.7FOhioHealth Mansfield HospitalPlatelets Auto (Bld) [#/Vol]on 56-65-8072Hrhifoofo (Bld) [#/Vol]286 10*3/cI764-362OfclzrxeiKettering Health Washington TownshipRBC Auto (Bld) [#/Vol] on 52-81-8773DLV (Bld) [#/Vol]4.15 10*6/uL3.90-5.20[facility]acon[facility] Hospitalerum or plasma anion gap determinationon 68-88-6018Qwjub gap [Moles/Vol]9 mmol/L9-18FOhioHealth Mansfield HospitalProgress Noteson 04-22-2023 [employer] Authentication Interface Message TextEMERGENCY TRIAGE, TREAT AND TRANSPORT (ET3) DOCUMENTATION OF TELEHEALTH VISIT Date / Time: 03/06/2023599 Name: Renuka Owen : 1950 SSN: (Not on file) EMS Agency: [facility] [x] Verbal consent obtained [] Implied [...] Same ET3 Encounter Completed by: [employer] Alanine aminotransferase [Enzymatic activity/volume] in Serum or PlasmaOrdered By: Jared Louis on 63-32-7636YQS [Catalytic activity/Vol]12 U/L7-52 [facility] TownshipAlbumin [Mass/volume] in Serum or Plasma by Bromocresol green (BCG) dye binding methoOrdered By: Jared Louis on 53-56-6634Khmxvtv BCG dye [Mass/Vol]3.4 g/dL3.5-5.7FOhioHealth Mansfield HospitalAlkaline phosphatase [Enzymatic activity/volume] in Serum or PlasmaOrdered By: Jared Louis on 33-55-4342WAA [Catalytic activity/Vol]45 U/L34-104 [facility] TownshipAspartate aminotransferase [Enzymatic activity/volume] in Serum or PlasmaOrdered By: Jared Louis on 38-98-3578NDM [Catalytic activity/Vol]14 U/G28-31ZelppyjkrKettering Health Washington TownshipBasophils Auto (Bld) [#/Vol]Ordered By: Jared Louis on 04-16-2023 Basophils (Bld) [#/Vol]0.0 10*3/uL0.0-0.2FOhioHealth Mansfield Hospital Basophils/100 WBC Auto (Bld)Ordered By: Jared Loius on 04-16-2023 Basophils/100 WBC (Bld)0.4 %.[facility] TownshipBilirubin.total [Mass/volume] in Serum or PlasmaOrdered By: Jared Louis on 04-16-2023 Bilirubin [Mass/Vol]0.6 mg/dL0.3-1.0[facility] TownshipCalcium [Mass/volume] in Serum or PlasmaOrdered By: Jared Louis 04-16-2023 Calcium [Mass/Vol]9.8 mg/dL8.6-10.3FOhioHealth Mansfield HospitalCarbon dioxide, total [Moles/volume] in Serum or PlasmaOrdered By: Jared Louis 72-55-1864KC8 [Moles/Vol]32.5 mmol/L21.0-31.0[facility] TownshipChloride [Moles/volume] in Serum or PlasmaOrdered By: Jared Louis 85-65-1442Eozgupzh [Moles/Vol]101 mmol/U77-752LvtltlwizKettering Health Washington TownshipCreatinine [Mass/volume] in Serum or PlasmaOrdered By: Jared Louis on 88-84-3671Muvmkcvcvs [Mass/Vol]0.94 mg/dL0.60-1.20[facility] TownshipEosinophils Auto (Bld) [#/Vol]Ordered By: Jared Louis on 48-14-8413Cwqscgtobue (Bld) [#/Vol]0.0 10*3/uL0.0-0.45[facility] TownshipEosinophils/100 WBC Auto (Bld)Ordered By: Jared Louis on 50-71-0833Qbpcbnoftct/100 WBC (Bld)0.3 %.[facility] TownshipErythrocyte distribution width Auto (RBC) [Ratio]Ordered By: Jared Louis on 16-17-1658Pcmrfxeecno distribution width (RBC) [Ratio] 15.0 %11.9-15.3FOhioHealth Mansfield HospitalGlobulin Calc (S) [Mass/Vol] Ordered By: Jared Louis on 18-04-6969Bkyhlatw (S) [Mass/Vol]2.8 g/dL [facility] TownshipGlucose [Mass/volume] in Serum or PlasmaOrdered By: Jared Louis on 61-40-1421Zfjkjfy [Mass/Vol]85 mg/dV74-384AwqfkaugaKettering Health Washington TownshipComment on above:ADA recommended reference rangeRandom Glucose Reference Range is dependent on time and content of last meal. Glucose of more than 200 mg/dL in a nonstressed, ambulatory subject supports the diagnosisof Diabetes Mellitus.Hematocrit Auto (Bld) [Volume fraction]Ordered By: Jared Louis on 80-19-3039Cevvlnswkv (Bld) [Volume fraction]33.2 % 34.0-46.4FOhioHealth Mansfield HospitalHemoglobin [Mass/volume] in Blood Ordered By: Jared Louis on 92-07-9884Cabowiccsb (Bld) [Mass/Vol]11.0 g/dL11.8-15.4FOhioHealth Mansfield HospitalLeukocytes [#/volume] corrected for nucleated erythrocytes in Blood by Automated counOrdered By: Jared Louis on 32-90-1153EYV corrected for nucl RBC Auto (Bld) [#/Vol]9.7 10*3/uL 3.8-11.6FOhioHealth Mansfield HospitalLymphocytes Auto (Bld) [#/Vol]Ordered By: Jared Louis on 59-49-0235Xadqmstyhyn (Bld) [#/Vol]1.8 10*3/uL 1.00-4.8[facility] TownshipLymphocytes/100 WBC Auto (Bld)Ordered By: Jared Louis on 68-29-4409Dzddpjffkkc/100 WBC (Bld)18.4 %.[facility] Medical CenterH Auto (RBC) [Entitic mass]Ordered By: Jared Louis on 06-10-4088EAG (RBC) [Entitic mass]27.4 pg24.7-34.3FOhioHealth Mansfield HospitalMCHC Auto (RBC) [Mass/Vol]Ordered By: Jared Louis on 86-38-1711TSXF (RBC) [Mass/Vol]33.0 g/dL32.0-35.0[facility] TownshipMCV Auto (RBC) [Entitic vol]Ordered By: Jared Louis on 36-00-1688MZS (RBC) [Entitic vol]83.2 uO87-044ZbplwnweuKettering Health Washington TownshipMonocytes Auto (Bld) [#/Vol]Ordered By: Jared Louis on 40-59-6714Dihfbjkfn (Bld) [#/Vol]1.4 10*3/uL0.0-0.8[facility] TownshipMonocytes/100 WBC Auto (Bld)Ordered By: Jared Louis on 04-16-2023 Monocytes/100 WBC (Bld)13.9 %.[facility] TownshipNeutrophils Auto (Bld) [#/Vol]Ordered By: Jared Louis on 61-61-2669Fsdrmkpkiae (Bld) [#/Vol]6.5 10*3/uL1.8-7.7FOhioHealth Mansfield HospitalNeutrophils/100 WBC Auto (Bld)Ordered By: Jared Louis on 30-49-9580Twfcjqanqba/100 WBC (Bld)67.0 %.[facility] TownshipNo Panel InformationOrdered By: Jared Louis on 39-55-7725Nlojzstgx GFR (CKD-EPI)> 60.0 mL/MinKettering Health Washington TownshipPharmacy Creatinine Clearance (Chem47.09[facility] TownshipNucleated erythrocytes [Presence] in Blood by Automated countOrdered By: Jared Louis on 41-44-4216Lihwedzbg RBC Auto Ql (Bld) 0.1 /100{WBC}0-0.5FOhioHealth Mansfield HospitalPlatelet mean volume Auto (Bld) [Entitic vol]Ordered By: Jared Louis on 20-89-6229Hqbnadzh mean volume (Bld) [Entitic vol]7.7 fL6.3-10.7FOhioHealth Mansfield Hospital Platelets Auto (Bld) [#/Vol]Ordered By: Jared Louis on 04-16-2023 Platelets (Bld) [#/Vol]228 10*3/vK348-409UedvusinxKettering Health Washington Township Potassium [Moles/volume] in Serum or PlasmaOrdered By: Jared Louis on 04-66-3804Jkyikgaog [Moles/Vol]3.9 mmol/L3.5-5.1FOhioHealth Mansfield HospitalPrealbumin [Mass/volume] in Serum or PlasmaOrdered By: Jared Louis on 52-12-9640Ruzgcfznqa [Mass/Vol]23.4 mg/dL17.0-34.0[facility] TownshipProtein [Mass/volume] in Serum or PlasmaOrdered By: Jared Louis on 14-46-5077Jvrryji [Mass/Vol]6.2 g/dL6.4-8.9[facility] TownshipRBC Auto (Bld) [#/Vol]Ordered By: Jared Louis on 47-73-6451AQR (Bld) [#/Vol]3.99 10*6/uL3.60-5.00[facility]acon[facility] Hospitalerum or plasma albumin/globulin mass ratioOrdered By: Jared Louis on 54-62-8343Bmsjbay/Globulin [Mass ratio]1.2 {ratio}[facility]acon[facility] Hospitalerum or plasma anion gap determinationOrdered By: Jared Louis on 58-44-9327Fbeyc gap [Moles/Vol]12.4 mmol/L6.0-15.0 [facility] Hospitalodium [Moles/volume] in Serum or PlasmaOrdered By: Jared Louis on 77-27-4746Hruitn [Moles/Vol]142 mmol/P531-650 [facility] TownshipUrea nitrogen [Mass/volume] in Serum or Plasma Ordered By: Jared Louis on 07-88-9457Exgy nitrogen [Mass/Vol]34 mg/dL 7-25[facility] TownshipWBC Auto (Bld) [#/Vol]Ordered By: Jared Louis on 68-84-0712NFO (Bld) [#/Vol]9.7 10*3/uL3.8-11.6FOhioHealth Mansfield HospitalBasophils Auto (Bld) [#/Vol]Ordered By: Devin Moreau on 03-26-2023 Basophils (Bld) [#/Vol]0.1 10*3/uL0.0-0.2FOhioHealth Mansfield Hospital Basophils/100 WBC Auto (Bld)Ordered By: Devin Moreau on 15-17-3692Kmzazcjbm/100 WBC (Bld)1.0 %.[facility] TownshipCalcium [Mass/volume] in Serum or PlasmaOrdered By: Devin Moreau on 37-25-9045Rpvlmmq [Mass/Vol]9.4 mg/dL8.6-10.3 [facility] TownshipCarbon dioxide, total [Moles/volume] in Serum or PlasmaOrdered By: Devin Moreau on 35-18-5860TH0 [Moles/Vol]30.1 mmol/L21.0-31.0 [facility] TownshipChloride [Moles/volume] in Serum or Plasma Ordered By: Devin Moreau on 18-65-6626Fxyypits [Moles/Vol]102 mmol/L98-107 [facility] TownshipCreatinine [Mass/volume] in Serum or Plasma Ordered By: Devin Moreau on 29-40-6570Suopbynxrv [Mass/Vol]1.19 mg/dL0.60-1.20 [facility] TownshipEosinophils Auto (Bld) [#/Vol]Ordered By: Devin Moreau on 48-22-9726Mwzehplllco (Bld) [#/Vol]0.3 10*3/uL0.0-0.45[facility] TownshipEosinophils/100 WBC Auto (Bld)Ordered By: Devin Mroeau on 26-52-9979Ylfnsodhkbx/100 WBC (Bld)4.7 %.[facility] Erythrocyte distribution width Auto (RBC) [Ratio]Ordered By: Devin Moreau on 58-11-3014Wxfnpnfuvaj distribution width (RBC) [Ratio]15.2 %11.9-15.3FOhioHealth Mansfield HospitalGlucose [Mass/volume] in Serum or PlasmaOrdered By: Devin Moreau on 04-86-6890Gmddejj [Mass/Vol]95 mg/rV39-454AemehinuhKettering Health Washington TownshipComment on above:ADA recommended reference rangeRandom Glucose Reference Range is dependent on time and content of last meal. Glucose of more than 200 mg/dL in a nonstressed, ambulatory subject supports the diagnosisof Diabetes Mellitus.Hematocrit Auto (Bld) [Volume fraction]Ordered By: Devin Moreau on 45-56-5588Fewsgeirmm (Bld) [Volume fraction]37.7 %34.0-46.4FOhioHealth Mansfield HospitalHemoglobin [Mass/volume] in BloodOrdered By: Devin Moreau on 70-44-6844Unxwqdyekt (Bld) [Mass/Vol]12.2 g/dL11.8-15.4FOhioHealth Mansfield HospitalLeukocytes [#/volume] corrected for nucleated erythrocytes in Blood by Automated counOrdered By: Devin Moreau on 07-35-0766JTN corrected for nucl RBC Auto (Bld) [#/Vol]6.0 10*3/uL3.8-11.6FOhioHealth Mansfield Hospital Lymphocytes Auto (Bld) [#/Vol]Ordered By: Devin Moreau on 90-12-6337Blnotoorjnl (Bld) [#/Vol]1.7 10*3/uL1.00-4.8[facility] Washington TownshipLymphocytes/100 WBC Auto (Bld)Ordered By: Devin Moreau on 73-43-6263Wxmltgjgxwo/100 WBC (Bld)28.9 %.[facility] TownshipMCH Auto (RBC) [Entitic mass]Ordered By: Devin Moreau on 03-92-4757NWZ (RBC) [Entitic mass]27.4 pg24.7-34.3FOhioHealth Mansfield HospitalMCHC Auto (RBC) [Mass/Vol]Ordered By: Devin Moreau on 38-50-9981GOXB (RBC) [Mass/Vol]32.4 g/dL32.0-35.0[facility] TownshipMCV Auto (RBC) [Entitic vol]Ordered By: Devin Moreau on 72-60-2571CDM (RBC) [Entitic vol]84.5 nF64-224IauanjoazKettering Health Washington TownshipMonocytes Auto (Bld) [#/Vol]Ordered By: Devin Moreau on 51-92-8848Cxpxpxbss (Bld) [#/Vol]0.6 10*3/uL 0.0-0.8[facility] TownshipMonocytes/100 WBC Auto (Bld)Ordered By: Devin Moreau on 12-86-7198Tgbgyqmfq/100 WBC (Bld)9.8 %.[facility] TownshipNeutrophils Auto (Bld) [#/Vol]Ordered By: Devin Moreau on 03-26-2023 Neutrophils (Bld) [#/Vol]3.3 10*3/uL1.8-7.7FOhioHealth Mansfield Hospital Neutrophils/100 WBC Auto (Bld)Ordered By: Devin Moreau on 03-26-2023 Neutrophils/100 WBC (Bld)55.6 %.[facility] TownshipNo Panel InformationOrdered By: Devin Moreau on 20-20-7856Dhrurrpnd GFR (CKD-EPI)48.279 mL/MinKettering Health Washington TownshipPharmacy Creatinine Clearance (ChemN/A [facility] TownshipNucleated erythrocytes [Presence] in Blood by Automated countOrdered By: Devin Moreau on 94-75-1785Rgqfitfdi RBC Auto Ql (Bld) 0.1 /100{WBC}0-0.5FOhioHealth Mansfield HospitalPlatelet mean volume Auto (Bld) [Entitic vol]Ordered By: Devin Moreau on 89-38-8579Kgekmazv mean volume (Bld) [Entitic vol]8.4 fL6.3-10.7FOhioHealth Mansfield HospitalPlatelets Auto (Bld) [#/Vol]Ordered By: Devin Moreau on 65-77-2940Zajzluyop (Bld) [#/Vol]242 10*3/fL374-699YpiegjnksKettering Health Washington TownshipPotassium [Moles/volume] in Serum or PlasmaOrdered By: Devin Moreau on 39-93-7935Pltnwabnh [Moles/Vol]4.4 mmol/L 3.5-5.1FOhioHealth Mansfield HospitalRBC Auto (Bld) [#/Vol]Ordered By: Devin Moreau on 20-02-8534XIF (Bld) [#/Vol]4.46 10*6/uL3.60-5.00Pro[facility]ant Deaconess Hospitalerum or plasma anion gap determinationOrdered By: Devin Moreau on 10-17-9667Dzcse gap [Moles/Vol]12.3 mmol/L6.0-15.0Pro[facility]aconess Hospitalodium [Moles/volume] in Serum or PlasmaOrdered By: Devin Moreau on 18-81-0999Bccdun [Moles/Vol]140 mmol/W744-388XjjwsdodzKettering Health Washington Township Urea nitrogen [Mass/volume] in Serum or PlasmaOrdered By: Devin Moreau on 72-45-3224Fyiz nitrogen [Mass/Vol]38 mg/dL7-25[facility] WBC Auto (Bld) [#/Vol]Ordered By: Devin oMreau on 35-68-3447SWO (Bld) [#/Vol]6.0 10*3/uL3.8-11.6FOhioHealth Mansfield HospitalHuman papilloma virus 16+18+31+33+35+39+45+51+52+56+58+59+66+68 DNA [Presence] in CerOrdered By: Radha Moreau on 74-63-4881TCD 16+18+31+33+35+39+45+51+52+56+58+59+66+68 DNA Probe+sig amp Ql (Cvx)NegativeNegativeKettering Health Washington TownshipComment on above:This nucleic acid amplification test detects fourteen high-risk HPV types (16,18,31,33,35,39,45,51,52,56,58,59,66,68)without differentiation.Performed at: [facility] [place], [place] [id number] Director: Estella Broderick MD, Phone: [phone] at: =G - [facility] [address] [place], [place] [id number] Director: Estella Broderick MD, Phone: [phone] Panel InformationOrdered By: Radha Moreau on 09-02-1195GS Pap w/Ct-Ng & HPV Rflx (Off-SiteNote.[facility] Washington TownshipComment on above:TESTS RESULT FLAG UNITS REF RANGE LAB Clinician Provided Cytology Information Source.............Vagina No. of containers..01 ThinPrep VialDIAGNOSIS: 01 NEGATIVE FOR INTRAEPITHELIAL LESION OR MALIGNANCY.Specimen adequacy: 01 Satisfactory for evaluation. Endocervical component may not be distinguished in cases of atrophy.Performed by: Rolly Castellano, Miter Operator (ASCP). 01Note: Note 01 The Pap smear [...] High <-Panic Low,>- Panic High,A-Abnormal,AA-Critical Abnormal Performed at:[address] [place] [id number] Estella Broderick MD, Vfmhmezljw - DIPSTICKon 35-38-2944Klmfkhlbuo (U) clearNoCrystal IS Cornice Other Bilirubin Ql (U)NegativeCrystal IS Cornice Other Color (U)yellowCrystal IS [place]ice Other Glucose Ql (U)ScionHealthCrystal IS [place] Other Hemoglobin Ql (U)AssisteraCrystal IS [place]ice Other Ketones Ql (U)NegativeCozy Queen Other Leukocyte esterase Test strip Ql (U)traceNoCrystal IS [place]ice Other Nitrite Ql (U)NegativeCrystal IS [place]ice Other pH (U)6.0 [pH][employer] Other Protein Ql (U)+[employer] Other Specific gravity (U) [Rel density]1.010Nocox [place] Other Urobilinogen (U) [Mass/Vol]off chartDixie Cornice Other Urinalysis - DIPSTICKNocox north Cornice Other Creatinine (Bld) [Mass/Vol]Ordered By: Devin Moreau on 01-98-0719Gethebdulb [Mass/Vol]0.9 mg/dL0.6-1.3FOhioHealth Mansfield Hospital Comment on above:ER/ESD physician is notified/shown all ISTAT results.Critical values may be confirmed by laboratorytesting ifdeemed necessary by ER attending doctor.No Panel InformationOrdered By: Devin Moreau on 81-78-3792Mlhpubv Estimated GFR (eGFR)> 60.0K[facility] Washington TownshipXR dexa axial skeletonon 14-39-7802LQ dexa axial skeletonNorth Cornice Other echocardiogramon 03-98-0387HvtkpnadudijunbgLjihj [facility] [address] [place] [address], [address] [place] [address] TRANSTHORACIC ECHOCARDIOGRAM REPORT Patient Name: RENUKA Dey Reading Physician: [id number] Bryce Hendrickson MD, [facility] Study Date: 01/25/2023 Referring BRYCE HENDRICKSON Physician: MRN/PID: [id number] PCP: Sylvester Jacob Accession/Order#: [id number] [facility] Location: Date of : 1950 Fellow: Gender: F Nurse: Admit Date: Slack Cooper: Светлана Mantilla RD, RVT Height: 154.94 cm CC Report to: Weight: 71.22 kg Study Type: Echocardiogram BSA: 1.70 m2 Blood Pressure: 120 /76 mmHg Diagnosis/ICD: I34.0-Nonrheumatic mitral (valve) insufficiency Indication: Abnormal EKG-LBBB, Chest Pain, HTN, Overweight Procedure/CPT: Echo Complete w Full Doppler-[id number] Study Detail: The following Echo studies were [...] 0.7 m/s (0.6-0.9m/s) PV Max P.8 mmHg [id number] Bryce Hendrickson MD, FACC Electronically signed on 01/26/2023 at 12:50:05 PM Final NormalLongs Peak HospitalPROF CHEM 8 (BAS METB)on 08-18-2022 Anion gap [Moles/Vol]9.9 mmol/LNormalUniversity Hospitals Conneaut Medical CenterComment on above: Performed By: #### HSTROPN #### [facility] [address] [place] [address] Dr. Isabell PeñaCalcium [Mass/Vol]9.3 mg/dLNormal8.5-10.1[facility] Comment on above:Performed By: #### HSTROPN #### [facility] [address] [address] [address] Isabell PeñaChloride [Moles/Vol]103 mmol/QUsskct95-524Pnm [facility] Comment on above:Performed By: #### HSTROPN #### [facility] [address] [place] [address] Dr. Isabell PeñaCO2 [Moles/Vol]31.7 mmol/SXyzsgt48.0-32.0[facility] Comment on above:Performed By: #### HSTROPN #### [facility] [address] [place] [address] Dr. Isabell PeñaCreatinine [Mass/Vol]0.98 mg/dLNormal0.55-1.02The [facility] HospitalComment on above:Performed By: #### HSTROPN #### [facility] [address] [place] [address] Dr. Isabell PerezGFR-AF TAJIK>60Normal>=60The [facility] HospitalComment on above:Performed By: #### HSTROPN #### [facility] [address] [place] [address] Dr. Isabell PerezGFR-NON AF FTNNNIUN78 mL/min/1.97y7Hthiinlhpj low>=60The [facility] HospitalComment on above:Performed By: #### HSTROPN #### [facility] [address] [place] [address] Dr. Isabell PeñaGlucose [Mass/Vol]111 mg/dLCritically lxyu97-191Upz [facility] HospitalComment on above:Performed By: #### HSTROPN #### [facility] [address] [place] [address] Dr. Isabell PeñaPotassium [Moles/Vol]3.6 mmol/LNormal3.5-5.1[facility] Comment on above:Performed By: #### HSTROPN #### [facility] [address] [place] [address] Dr. Isabell PeñaSodium [Moles/Vol]141 mmol/CCrbdtf286-664RbbUniversity Hospitals Conneaut Medical Center Comment on above:Performed By: #### HSTROPN #### [facility] [address] [place] [address] Dr. Isabell PeñaUrea nitrogen [Mass/Vol]20.0 mg/dLCritically high7.0-18.0The [facility] HospitalComment on above:Performed By: #### HSTROPN #### [facility] [address] [address] [address] Isabell Barrera nitrogen/Creatinine [Mass ratio]20.4 mg/mgWadsworth-Rittman HospitalComment on above:Performed By: #### HSTROPN #### [facility] [address] [address] [address] Isabell Matthews CARDIAC STRESS/REST INJECTIONon 75-31-8724XPB CARDIAC STRESS/REST INJECTIONMRN: [id number] Patient Name: RENUKA OWEN STUDY: MYOCARDIAL PERFUSION STRESS TEST WITH LEXISCAN Performing facility: [facility], [address] [place] [address], [address], [place] [address] [facility] Provider: Bryce Hendrickson MD, [facility] PCP: Dr. Roseanna Jacob Supervising provider: Bryce Hendrickson MD, FACC INDICATION: Chest Pain; LBBB HISTORY: Gender: F; Age: 71 y/o ; Height: 0 cm; Weight: 0 kg. Abnormal EKG; HTN; Chest Pain; Denies smoking. COMPARISON: No comparison. ACCESSION NUMBER(S): [id number]; [id number]; [id number] ORDERING CLINICIAN: BRYCE HENDRICKSON TECHNIQUE: ONE DAY [...] for comparison. Electronically signed by: BRYCE HENDRICKSON MDPennsylvania HospitalNo Panel Informationon 30-78-2440DasnahEE-[facility] [address] DO Work Phone: Urinalysis - DIPSTICKon 09-39-9223Semtnfgxcl (U)cloudy [employer] Other Bilirubin Ql (U)smallEucalyptus Systems Other Color (U)yellowCrystal IS Cornice Other Glucose Ql (U)NegativeWyss Institute Cornice Other Hemoglobin Ql (U)largeEucalyptus Systems Other Ketones Ql (U)[employer] Other Leukocyte esterase Test strip Ql (U)[employer] Other Nitrite Ql (U)NegativeEucalyptus Systems Other pH (U)8.5 [pH][employer] Other Protein Ql (U)[employer] Other Specific gravity (U) [Rel density]1.010Dixie Cornice Other Urobilinogen (U) [Mass/Vol]0.2 mg/dLCrystal IS Cornice Other Urinalysis - DIPSTICKEucalyptus Systems Other cbC W Auto Differential panel (Bld)on 05-19-2022 Basophils (Bld) [#/Vol]0.09 10*3/uL<0.11 k/uLKettering Health TroyBasophils/100 WBC (Bld)0.8 %[facility] TroyDifferential cell count method Nom (Bld)AutoCleveland ClinicEosinophils (Bld) [#/Vol]0.26 10*3/uL<0.46 k/uLKettering Health Troy Eosinophils/100 WBC (Bld)2.3 %[facility] TroyErythrocyte distribution width (RBC) [Ratio]16.4 %High11.5 - 15.0 %[facility] TroyHematocrit (Bld) [Volume fraction]36.6 %36.0 - 46.0 %[facility] TroyHemoglobin (Bld) [Mass/Vol]11.6 g/dL 11.5 - 15.5 g/dLKettering Health TroyImmature granulocytes (Bld) [#/Vol]0.05 10*3/uL <0.10 k/uLKettering Health TroyImmature granulocytes/100 WBC (Bld)0.4 %[facility] TroyLymphocytes (Bld) [#/Vol]1.87 10*3/uL1.00 - 4.00 k/uLKettering Health Troy Lymphocytes/100 WBC (Bld)16.3 %Wilson HealthH (RBC) [Entitic mass]28.0 pg 26.0 - 34.0 pgCParkview HealthHC (RBC) [Mass/Vol]31.7 g/dL30.5 - 36.0 g/dL Wilson HealthV (RBC) [Entitic vol]88.4 fL80.0 - 100.0 fLCParma Community General Hospital Monocytes (Bld) [#/Vol]1.17 10*3/uLHigh<0.87 k/uLKettering Health TroyMonocytes/100 WBC (Bld)10.2 %[facility] TroyNeutrophils (Bld) [#/Vol]8.04 10*3/uLHigh1.45 - 7.50 k/uLKettering Health TroyNeutrophils/100 WBC (Bld)70.0 %[facility] Nucleated RBC (Bld) [#/Vol]<0.01 k/uLKettering Health TroyNucleated RBC/100 WBC (Bld) [Ratio]0.0 /100 WBCSan Antonio ClinicPlatelet mean volume (Bld) [Entitic vol]9.4 fL9.0 - 12.7 fLCleveland ClinicPlatelets (Bld) [#/Vol]389 10*3/uL150 - 400 k/uL [facility] TroyRBC (Bld) [#/Vol]4.14 10*6/uL3.90 - 5.20 m/uLKettering Health TroyWBC (Bld) [#/Vol]11.48 10*3/uLHigh3.70 - 11.00 k/uLKettering Health TroyComprehensive metabolic 2000 panelon 71-28-1441Fqkrtiz [Mass/Vol]4.1 g/dL3.9 - 4.9 g/dL [facility] HospitalP [Catalytic activity/Vol]81 U/L34 - 123 U/LCParma Community General Hospital ALT [Catalytic activity/Vol]9 U/L7 - 38 U/LCleveland ClinicAnion gap [Moles/Vol] 9 mmol/L9 - 18 mmol/LCleveland ClinicAST [Catalytic activity/Vol]18 U/L13 - 35 U/LCleveland Austin Hospital And ClinicBilirubin [Mass/Vol]0.5 mg/dL0.2 - 1.3 mg/dLKettering Health Troy Calcium [Mass/Vol]9.9 mg/dL8.5 - 10.2 mg/dLKettering Health TroyChloride [Moles/Vol] 99 mmol/L97 - 105 mmol/LCleveland ClinicCO2 [Moles/Vol]29 mmol/L22 - 30 mmol/L [facility] TroyCreatinine [Mass/Vol]0.78 mg/dL0.58 - 0.96 mg/dLKettering Health Troy Estimated Glomerular Filtration Rate81 mL/min/1.73m>=60 mL/min/1.73mCleveland Austin Hospital And ClinicGlucose [Mass/Vol]118 mg/mEEkjx30 - 99 mg/dLKettering Health TroyPotassium [Moles/Vol]3.6 mmol/LLow3.7 - 5.1 mmol/LCleveland ClinicProtein [Mass/Vol]6.9 g/dL6.3 - 8.0 g/dLSan Antonio ClinicSodium [Moles/Vol]137 mmol/L136 - 144 mmol/L [facility] TroyUrea nitrogen [Mass/Vol]19 mg/dL7 - 21 mg/dLKettering Health Troy Office Visit (Cardiology)on 16-02-2909Kqkeee-up visitDiagnoses/Problems Assessed Essential hypertension (401.9) (I10) LBBB [...] problems noted below but recently was at [facility] for chest pain and had ruled [...] chest pain requiring an ER visit to [facility]. Assessment was negative in the ER. Nuclear stress test is recommended and will be scheduled Bryce Hendrickson MD, [facility] Surgical History Problems History of Appendectomy [...] Recorded: 12May2022 11:27AM Heart Rate72, R Radial Btwttqfc096, RUE, Sitting Pkysmlvcf98, RUE, Sitting Height5 ft 1 in Lbagen844 lb BMI Jwijwrldcp79.67 kg/m2 BSA Calculated1.7 Tobacco Useb) No PH (more content not included)...NormalUH TouchworksTobacco Screening.on 70-96-8789Sxvnw depression screening assessmentNoTrios Health OleOle DO Work Phone: Fall risk assessmenta) No falls within the last year [facility] OleOle DO Work Phone: Tobacco use status CPHSb) NoMAstria Sunnyside Hospital ClearFlow DO Work Phone: CTA CHEST WO W CONon 05-79-6229OQZ CHEST WO W CON EXAMINATION: CTA CHEST [...] Electronically authenticated by: EMORY WILSON Date: 2022-05-11 00:34NormKindred Healthcaree [facility] HospitalCovid-19 PCR (CVDTBH)on 26-56-5298AGQI-CoV-2 (COVID-19) RNA JANET+probe Ql (Unsp spec)Not detectedNormalNOT DETECTEDThe [facility] Comment on above:Result Comment: When diagnostic [...] for this test is supported by the Python Engineer of Health and Human Service's declaration that [...] longer be used).Performed By: #### LACT #### [facility] [address] [address] [address] Isabell SewellCARDIDevyn M/2D COMPLETEon 98-91-5980OMGYMZYVYN M/2D COMPLETE Patient: RENUKA OWEN Exam Date: 05/11/2022 : 1950 Gender:F Ordering : VIVI CHAMBERS . Admission #: [id number] Family : DR SYLVESTER JACOB DJake Order #: [id number] CLICK HERE TO VIEW EXAM ECHOCARDIOGRAM REPORT [...] by: Kun Kent M.D. on 05/14/2022 at 10:30[facility] Hospital - Southeast OhioASSIUMon 28-86-8659Dumbwfumz [Moles/Vol]3.5 mmol/LNormal3.5-5.1The [facility] on above:Performed By: #### K #### [facility] [address] [place] [address] Dr. Isabell Longoria, [facility] SENSITIVITYon 83-91-3666FRONTH94.0 pg/mLNormal 4.0-51.3TMercy Health St. [facility] on above:Result Comment: CUT-OFF POINTS HAVE BEEN ESTABLISHED BASED ON THE FOURTH UNIVERSAL DEFINITIONS OF MYOCARDIAL INFARCTION. THE UPPER REFERENCE LIMIT (URL) OF TROPONIN, DEFINED THE 99TH PERCENTILE OF cTnI DISTRIBUTION IN A REFERENCE POPULATION, HAS BEEN CONFIRMED THE DECISION THRESHOLD FOR NC DIAGNOSIS.Performed By: #### HSTROPN #### [facility] [address] [place] [address] Dr. Isabell DealOP15.3 pg/mLNormal4.0-51.3TMercy Health St. Vincent Medical Center on above:Result Comment: CUT-OFF POINTS HAVE BEEN ESTABLISHED BASED ON THE FOURTH UNIVERSAL DEFINITIONS OF MYOCARDIAL INFARCTION. THE UPPER REFERENCE LIMIT (URL) OF TROPONIN, DEFINED THE 99TH PERCENTILE OF cTnI DISTRIBUTION IN A REFERENCE POPULATION, HAS BEEN CONFIRMED THE DECISION THRESHOLD FOR NC DIAGNOSIS.Performed By: #### HSTROPN #### [facility] [address] [place] [address] Dr. Isabell HollowayTROP13.2 pg/mLNormal4.0-51.3TMercy Health St. [facility] Medical Center on above:Result Comment: CUT-OFF POINTS HAVE BEEN ESTABLISHED BASED ON THE FOURTH UNIVERSAL DEFINITIONS OF MYOCARDIAL INFARCTION. THE UPPER REFERENCE LIMIT (URL) OF TROPONIN, DEFINED THE 99TH PERCENTILE OF cTnI DISTRIBUTION IN A REFERENCE POPULATION, HAS BEEN CONFIRMED THE DECISION THRESHOLD FOR NC DIAGNOSIS.Performed By: #### HSTROPN #### [facility] [address] [place] [address] Dr. Isabell Mendez 93-55-1260Kuaqwdolpbc peptide B (Bld) [Mass/Vol]663.0 pg/mL Normal<=900.0The [facility] HospitalComment on above:Performed By: #### BNP, CMP, HSTROPN #### [facility] [address] [place] [address] Dr. Isabell Munoz AUTO DIFFon 67-24-6201PFFJ #0.1 103/ulNormal0.0-0.1The [facility] HospitalComment on above:Performed By: #### HSTROPN #### [facility] [address] [place] [address] Dr. Isabell PeñaBasophils/100 WBC (Bld)0.4 %Normal0.2-2.0The [facility] Comment on above:Performed By: #### HSTROPN #### [facility] [address] [place] [address] Dr. Isabell Mayorga #0.2 103/ulNormal0.0-0.7The [facility] HospitalComment on above: Performed By: #### HSTROPN #### [facility] [address] [place] [address] Dr. Isabell Perezosinophils/100 WBC (Bld)1.4 %Normal0.9-7.0The [facility] Comment on above:Performed By: #### HSTROPN #### [facility] [address] [place] [address] Dr. Isabell Perezrythrocyte distribution width (RBC) [Ratio]15.7 %Critically high 11.0-15.0The [facility] HospitalComment on above:Performed By: #### HSTROPN #### [facility] [address] [place] [address] Dr. Isabell PeñaHematocrit (Bld) [Volume fraction]32.9 %Critically low36.0-48.0 The [facility] HospitalComment on above:Performed By: #### HSTROPN #### [facility] [address] [place] [address] Dr. Isabell PeñaHemoglobin (Bld) [Mass/Vol]11.4 g/dLCritically low12.0-16.0The [facility] HospitalComment on above:Performed By: #### HSTROPN #### [facility] [address] [place] [address] Dr. Isabell Driscoll #0.06 10e3/ulCritically high0.00-0.03The [facility] Comment on above:Performed By: #### HSTROPN #### [facility] [address] [place] [address] Dr. Isabell Driscoll %0.5 %Normal0.0-0.5The [facility] HospitalComment on above: Performed By: #### HSTROPN #### [facility] [address] [place] [address] Dr. Isabell Stein #1.6 103/ulNormal1.2-3.8The [facility] HospitalComment on above:Performed By: #### HSTROPRola #### [facility] [address] [place] [address] Dr. Isabell Roberthocytes/100 WBC (Bld)13.7 %Critically low20.5-60.0The [facility] HospitalComment on above:Performed By: #### HSTROPN #### [facility] [address] [place] [address] Dr. Isabell DempseyUAL DIFF REQNONormalThe [facility] HospitalComment on above: Performed By: #### HSTROPN #### [facility] [address] [place] [address] Dr. Isabell Juárez (RBC) [Entitic mass]28.3 ekCjkkps67.7-34.0The [facility] HospitalComment on above:Performed By: #### HSTROPN #### [facility] [address] [place] [address] Dr. Isabell GardnerHC (RBC) [Mass/Vol]34.7 g/aWGcezkf33.9-35.2The [facility] HospitalComment on above:Performed By: #### HSTROPN #### [facility] [address] [address] [address] Isabell GardnerV (RBC) [Entitic vol]81.6 oEBycdsg49.0-99.0The [facility] HospitalComment on above:Performed By: #### HSTROPN #### [facility] [address] [place] [address] Dr. Isabell Gonzalez #1.2 103/ulCritically high0.3-0.8The [facility] Comment on above:Performed By: #### HSTROPN #### [facility] [address] [place] [address] Dr. Isabell Grandaocytes/100 WBC (Bld)10.7 %Normal1.7-12.0[facility] Comment on above:Performed By: #### HSTROPN #### [facility] [address] [place] [address] Dr. Isabell Malloy #8.3 103/ulCritically high1.4-6.5ThOhio State University [facility] Comment on above:Performed By: #### HSTROPN #### [facility] [address] [place] [address] Dr. Isabell Simmonsutrophils/100 WBC (Bld)73.3 %Pajvoq19.0-75.0The [facility] HospitalComment on above:Performed By: #### HSTROPN #### [facility] [address] [place] [address] Dr. Isabell Mathewlet mean volume (Bld) [Entitic vol]8.4 fLCritically low 9.5-13.5The [facility] HospitalComment on above:Performed By: #### HSTROPN #### [facility] [address] [place] [address] Dr. Isabell PeñaPLT380 103/ojEnoibl139-252Qsq [facility] on above: Performed By: #### HSTROPN #### [facility] [address] [place] [address] Dr. Isabell PeñaRBC4.03 106/ulCritically low4.20-5.40The [facility] on above:Performed By: #### HSTROPN #### [facility] [address] [place] [address] Dr. Isabell PeñaWBC11.4 103/ulCritically high4.0-11.0The [facility] on above:Performed By: #### HSTROPN #### [facility] [address] [place] [address] Dr. Isabell Lew-DIMERon 76-89-6747W-DIMER2.39 mg/L FEUCritically high<=0.59The [facility] on above:Performed By: #### DDIM #### [facility] [address] [place] [address] Dr. Isabell Lew-DIMER COMMENTSSEE [facility] on above:Result Comment: Increases in D-Dimer concentration [...] generalized hospitalization. Performed By: #### DDIM #### [facility] [address] [place] [address] Dr. Isabell PeñaPROF 14(COMP METB)on [id number] [Mass/Vol]3.4 g/dLNormal 3.4-5.0[facility] on above:Performed By: #### BNP, CMP, HSTROPN #### [facility] [address] [place] [address] Dr. Isabell PeñaAlbumin/Globulin [Mass ratio]1.1 {ratio}NormalThe [facility] HospitalComment on above:Performed By: #### BNP, CMP, HSTROPN #### [facility] [address] [place] [address] Dr. Isabell MeekP [Catalytic activity/Vol]99 U/RNlfrsh33-804Ija [facility] HospitalComment on above:Performed By: #### BNP, CMP, HSTROPN #### [facility] [address] [place] [address] Dr. Isabell Barnett [Catalytic activity/Vol]15 U/CSdcydx83-73Cbm [facility] HospitalComment on above:Performed By: #### BNP, CMP, HSTROPN #### [facility] [address] [place] [address] Dr. Isabell Robbinson gap [Moles/Vol]12.0 mmol/LNormalThe [facility] Comment on above:Performed By: #### BNP, CMP, HSTROPN #### [facility] [address] [place] [address] Dr. Isabell PeñaAST [Catalytic activity/Vol]20 U/IClwhmw48-12Xbp [facility] HospitalComment on above:Performed By: #### BNP, CMP, HSTROPN #### [facility] [address] [place] [address] Dr. Isabell PeñaBilirubin [Mass/Vol]0.4 mg/dLNormal0.2-1.0The [facility] Comment on above:Performed By: #### BNP, CMP, HSTROPN #### [facility] [address] [place] [address] Dr. Isabell PeñaCalcium [Mass/Vol]8.6 mg/dLNormal8.5-10.1[facility] Comment on above:Performed By: #### BNP, CMP, HSTROPN #### [facility] [address] [place] [address] Dr. Isabell PeñaChloride [Moles/Vol]99 mmol/JTczpdg52-106Qkk [facility] Comment on above:Performed By: #### BNP, CMP, HSTROPN #### [facility] [address] [address] [address] Isabell PeñaCO2 [Moles/Vol]32.2 mmol/LCritically high21.0-32.0The [facility] on above:Performed By: #### BNP, CMP, HSTROPN #### [facility] [address] [place] [address] Dr. Isabell PeñaCreatinine [Mass/Vol]0.86 mg/dLNormal0.55-1.02The [facility] HospitalComment on above:Performed By: #### BNP, CMP, HSTROPN #### [facility] [address] [place] [address] Dr. Isabell PerezGFR-AF TAJIK>60Normal>=60The [facility] on above:Performed By: #### BNP, CMP, HSTROPN #### [facility] [address] [place] [address] Dr. Isabell PerezGFR-NON AF TAJIK>60Normal>=60The [facility] on above:Performed By: #### BNP, CMP, HSTROPN #### [facility] [address] [place] [address] Dr. Isabell PeñaGlobulin (S) [Mass/Vol]3.2 g/dLNormalThe [facility]Com[facility] on above:Performed By: #### BNP, CMP, HSTROPN #### [facility] [address] [place] [address] Dr. Isabell PeñaGlucose [Mass/Vol]111 mg/dLCritically cqyt44-645Pmu [facility] on above:Performed By: #### BNP, CMP, HSTROPN #### [facility] [address] [place] [address] Dr. Isabell PeñaPotassium [Moles/Vol]3.2 mmol/LCritically low3.5-5.1The [facility] on above:Performed By: #### BNP, CMP, HSTROPN #### [facility] [address] [place] [address] Dr. Isabell PeñaProtein [Mass/Vol]6.6 g/dLNormal6.4-8.2The [facility] Comment on above:Performed By: #### BNP, CMP, HSTROPN #### [facility] [address] [address] [address] Isabell PeñaSodium [Moles/Vol]140 mmol/ZVdnqhm649-822Xpb [facility] Comment on above:Performed By: #### BNP, CMP, HSTROPN #### [facility] [address] [place] [address] Dr. Isabell PeñaUrea nitrogen [Mass/Vol]22.0 mg/dLCritically high7.0-18.0The [facility] HospitalComment on above:Performed By: #### BNP, CMP, HSTROPN #### [facility] [address] [place] [address] Dr. Isabell Barrera nitrogen/Creatinine [Mass ratio]25.6 mg/mgNormalThe [facility] HospitalComment on above:Performed By: #### BNP, CMP, HSTROPN #### [facility] [address] [place] [address] Dr. Isabell Longoria, HIGH SENSITIVITYon 84-56-8572JYCZGX7.6 pg/mLNormal 4.0-51.3The [facility] HospitalComment on above:Result Comment: CUT-OFF POINTS HAVE BEEN ESTABLISHED BASED ON THE FOURTH UNIVERSAL DEFINITIONS OF MYOCARDIAL INFARCTION. THE UPPER REFERENCE LIMIT (URL) OF TROPONIN, DEFINED THE 99TH PERCENTILE OF cTnI DISTRIBUTION IN A REFERENCE POPULATION, HAS BEEN CONFIRMED THE DECISION THRESHOLD FOR NC DIAGNOSIS.Performed By: #### BNP, CMP, HSTROPN #### [facility] [address] [place] [address] Dr. Isabell PeñaCUJOSSE URINEon [id number] URINEIsolate 1 Pseudomonas aeruginosa 10,000 cfu/mL of ORGANISM 1 Pseudomonas aeruginosa ANTIBIOTIC M.I.C RX STATUS Piperacillin/Tazobactam <=4 S F Ceftazidime 4 S F Imipenem 2 S F Amikacin <=2 S F Gentamicin <=1 S F Tobramycin <=1 S F Ciprofloxacin <=0.25 S F Levofloxacin 0.25 S FNormalThe [facility] HospitalComment on above:Performed By: #### HSTROPN #### [facility] [address] [place] [address] Dr. Isabell Munoz AUTO DIFFon [id number] #0.0 103/ulNormal0.0-0.1The [facility] HospitalComment on above:Performed By: #### HSTROPN #### [facility] [address] [place] [address] Dr. Isabell PeñaBasophils/100 WBC (Bld)0.2 %Normal0.2-2.0The [facility] Comment on above:Performed By: #### HSTROPN #### [facility] [address] [place] [address] Dr. Isabell Mayorga #0.1 103/ulNormal0.0-0.7The [facility] HospitalComment on above: Performed By: #### HSTROPN #### [facility] [address] [place] [address] Dr. Isabell Perezosinophils/100 WBC (Bld)0.3 %Critically low0.9-7.0The [facility] on above:Performed By: #### HSTROPN #### [facility] [address] [place] [address] Dr. Isabell Perezrythrocyte distribution width (RBC) [Ratio]15.4 %Critically high 11.0-15.0The [facility] HospitalComment on above:Performed By: #### HSTROPN #### [facility] [address] [place] [address] Dr. Isabell PeñaHematocrit (Bld) [Volume fraction]42.4 %Skwsna26.0-48.0The [facility] HospitalComment on above:Performed By: #### HSTROPN #### [facility] [address] [place] [address] Dr. Isabell PeñaHemoglobin (Bld) [Mass/Vol]14.2 g/tHLuupzx26.0-16.0The [facility] HospitalComment on above:Performed By: #### HSTROPN #### [facility] [address] [place] [address] Dr. Isabell Driscoll #0.15 10e3/ulCritically high0.00-0.03The [facility] Comment on above:Performed By: #### HSTROPN #### [facility] [address] [place] [address] Dr. Isabell Driscoll %0.9 %Critically high0.0-0.5The [facility] HospitalComment on above:Performed By: #### HSTROPN #### [facility] [address] [place] [address] Dr. Isabell Stein #1.5 103/ulNormal1.2-3.8The [facility] HospitalComment on above:Performed By: #### HSTRBENEDICT #### [facility] [address] [place] [address] Dr. Isabell Roberthocytes/100 WBC (Bld)9.1 %Critically low20.5-60.0The [facility] HospitalComment on above:Performed By: #### HSTRBENEDICT #### [facility] [address] [place] [address] Dr. Isabell DempseyUAL DIFF REQNONormalThe [facility] HospitalComment on above: Performed By: #### HSTRMELYSSAN #### [facility] [address] [place] [address] Dr. Isabell Juárez (RBC) [Entitic mass]27.5 qsLtuwlq28.7-34.0The [facility] HospitalComment on above:Performed By: #### HSTROPN #### [facility] [address] [place] [address] Dr. Isabell Parsons (RBC) [Mass/Vol]33.5 g/xLUqhipj82.9-35.2The [facility] HospitalComment on above:Performed By: #### HSTROPN #### [facility] [address] [place] [address] Dr. Isabell GardnerV (RBC) [Entitic vol]82.2 uBBuqjsp61.0-99.0The [facility] HospitalComment on above:Performed By: #### HSTROPN #### [facility] [address] [place] [address] Dr. Isabell Gonzalez #1.1 103/ulCritically high0.3-0.8The [facility] Comment on above:Performed By: #### HSTROPN #### [facility] [address] [place] [address] Dr. Isabell Grandaocytes/100 WBC (Bld)6.4 %Normal1.7-12.0[facility] Comment on above:Performed By: #### HSTROPN #### [facility] [address] [place] [address] Dr. Isabell Malloy #13.8 103/ulCritically high1.4-6.5The [facility] Comment on above:Performed By: #### HSTROPN #### [facility] [address] [place] [address] Dr. Isabell PeñaNeutrophils/100 WBC (Bld)83.1 %Critically high43.0-75.0The [facility] HospitalComment on above:Performed By: #### HSTROPN #### [facility] [address] [place] [address] Dr. Isabell Mathewlet mean volume (Bld) [Entitic vol]8.7 fLCritically low 9.5-13.5The [facility] HospitalComment on above:Performed By: #### HSTROPN #### [facility] [address] [place] [address] Dr. Isabell PeñaPLT438 103/bpSvcmky890-028Oqk [facility] HospitalComment on above: Performed By: #### HSTROPN #### [facility] [address] [place] [address] Dr. Isabell PeñaRBC5.16 106/ulNormal4.20-5.40The [facility] HospitalComment on above:Performed By: #### HSTROPN #### [facility] [address] [address] [address] Isabell PeñaWBC16.7 103/ulCritically high4.0-11.0The [facility] HospitalComment on above:Performed By: #### HSTROPN #### [facility] [address] [place] [address] Dr. Isabell Gutierrez [id number] [Mass/Vol]mg/LNormal<=1.0The [facility] on above:Performed By: #### HSTROPN #### [facility] [address] [place] [address] Dr. Isabell Pastor URINE PROFILEon 42-94-5673Glbzidugx Ql (U)NegativeNormal NEGATIVEUniversity Hospitals Conneaut Medical CenterComment on above:Performed By: #### CARMEN UMICRO #### [facility] [address] [place] [address] Dr. Isabell PeñaClarity (U)CLEARNormalCLEARMcKitrick Hospitalment on above: Performed By: #### CARMEN UMICRO #### [facility] [address] [place] [address] (U)LT. YELLOWNormalYELLOWMcKitrick Hospitalment on above:Performed By: #### CARMEN UMICRO #### [facility] [address] [place] [address] Dr. Isabell McfarlaneDA micrscopic examination will be performed if indicated. NormalThe [facility] HospitalComment on above:Performed By: #### ERUKaruna UMICRO #### [facility] [address] [place] [address] Dr. Isabell PeñaGlucose Ql (U)NegativeNormalNEGATIVEUniversity Hospitals Conneaut Medical CenterComment on above:Performed By: #### ERUR, UMICRO #### [facility] [address] [place] [address] Dr. Isabell PeñaHemoglobin Ql (U)NegativeNormalNEGATIVEThe [facility] Comment on above:Performed By: #### CARMEN UMICRO #### [facility] [address] [address] [address] Isabell Enriquez Ql (U)NegativeNormalNEGATIVEThe [facility] HospitalComment on above:Performed By: #### CARMEN UMICRO #### [facility] [address] [address] [address] Isabell PeñaLEUKOCYTESLARGEAbnormalNEGATIVEThe [facility] HospitalComment on above:Performed By: #### CARMEN UMICRO #### [facility] [address] [address] [address] Isabell Cooktrbimal Ql (U)NegativeNormalNEGATIVEThe [facility] HospitalComment on above:Performed By: #### CARMEN UMICRO #### [facility] [address] [place] [address] Dr. Isabell PeñapH (U)6.5 [pH]Normal5-9The [facility] HospitalComment on above: Performed By: #### CARMEN UMICRO #### [facility] [address] [place] [address] Dr. Isabell PeñaSPEC GRAVITY1.003Tmnmeq0.005-<=1.025The [facility] HospitalComment on above:Performed By: #### CARMEN UMICRO #### [facility] [address] [place] [address] Dr. Isabell Phillip PROTEINNegativeNormalNEGATIVE/ TRACEThe [facility] Comment on above:Performed By: #### CARMEN UMICRO #### [facility] [address] [address] [address] Isabell Gurrola MICRO INDINDICATEDNormalThe [facility] HospitalComment on above: Performed By: #### CARMEN UMICRO #### [facility] [address] [place] [address] Dr. Isabell Colininogen Qn (U)0.2 {Bradly'U}/dLNormal0.2 - 1.0The [facility] HospitalComment on above:Performed By: #### KAREN MORALES #### [facility] [address] [place] [address] Dr. Isabell PeñaLACTATE/LACTIC ACIDon 20-04-6245Fyphila [Moles/Vol]1.2 mmol/L Normal0.4-1.9The [facility] HospitalComment on above:Performed By: #### LACT #### [facility] [address] [place] [address] Dr. Isabell PeñaPROF 14(COMP METB)on 43-55-9015Pffqsdd [Mass/Vol]3.6 g/dLNormal 3.4-5.0The [facility] HospitalComment on above:Performed By: #### HSTROPN #### [facility] [address] [place] [address] Dr. Isabell PeñaAlbumin/Globulin [Mass ratio]1.0 {ratio}NormalThe [facility] HospitalComment on above:Performed By: #### HSTROPN #### [facility] [address] [place] [address] Dr. Isabell Tse [Catalytic activity/Vol]79 U/QMubagh40-611Ygh [facility] HospitalComment on above:Performed By: #### HSTROPN #### [facility] [address] [place] [address] Dr. Isabell Barnett [Catalytic activity/Vol]23 U/BKvrxrf65-91Ieq [facility] HospitalComment on above:Performed By: #### HSTROPN #### [facility] [address] [place] [address] Dr. Isabell Bunch gap [Moles/Vol]12.7 mmol/LNormalThe [facility] Comment on above:Performed By: #### HSTROPN #### [facility] [address] [place] [address] Dr. Isabell Lagunas [Catalytic activity/Vol]19 U/ZMtpomr10-70Zuo [facility] HospitalComment on above:Performed By: #### HSTROPN #### [facility] [address] [place] [address] Dr. Isabell PeñaBilirubin [Mass/Vol]0.7 mg/dLNormal0.2-1.0The [facility] Comment on above:Performed By: #### HSTROPN #### [facility] [address] [address] [address] Isabell PeñaCalcium [Mass/Vol]9.8 mg/dLNormal8.5-10.1The [facility] Comment on above:Performed By: #### HSTROPN #### [facility] [address] [address] [address] Isabell PeñaChloride [Moles/Vol]93 mmol/LCritically cse15-807Pty [facility] HospitalComment on above:Performed By: #### HSTROPN #### [facility] [address] [place] [address] Dr. Isabell PeñaCO2 [Moles/Vol]29.9 mmol/LIgnegv78.0-32.0The [facility] Comment on above:Performed By: #### HSTROPN #### [facility] [address] [address] [address] Isabell PeñaCreatinine [Mass/Vol]1.14 mg/dLCritically high0.55-1.02The [facility] HospitalComment on above:Performed By: #### HSTROPN #### [facility] [address] [place] [address] Dr. Whyte ChangEGFR-AF GVBOYFGI23 mL/min/1.87j2Midizlzuuf low>=60The [facility] HospitalComment on above:Performed By: #### HSTROPN #### [facility] [address] [address] [address] Isabell PerezGFR-NON AF CRDNIDLV51 mL/min/1.59p3Uqxtnhapxs low>=60The [facility] HospitalComment on above:Performed By: #### HSTROPN #### [facility] [address] [place] [address] Dr. Isabell PeñaGlobulin (S) [Mass/Vol]3.7 g/dLNormalThe [facility] HospitalComment on above:Performed By: #### HSTROPN #### [facility] [address] [address] [address] Isabell PeñaGlucose [Mass/Vol]110 mg/dLCritically rcnm67-293Mer [facility] HospitalComment on above:Performed By: #### HSTROPN #### [facility] [address] [place] [address] Dr. Isabell PeñaPotassium [Moles/Vol]3.6 mmol/LNormal3.5-5.1The [facility] Comment on above:Performed By: #### HSTROPN #### [facility] [address] [address] [address] Isabell PeñaProtein [Mass/Vol]7.3 g/dLNormal6.4-8.2The [facility] Comment on above:Performed By: #### HSTROPN #### [facility] [address] [place] [address] Dr. Isabell PeñaSodium [Moles/Vol]132 mmol/LCritically xai881-103Jkn [facility] HospitalComment on above:Performed By: #### HSTROPN #### [facility] [address] [address] [address] Isabell PeñaUrea nitrogen [Mass/Vol]30.0 mg/dLCritically high7.0-18.0The [facility] HospitalComment on above:Performed By: #### HSTROPN #### [facility] [address] [place] [address] Dr. Isabell Barrera nitrogen/Creatinine [Mass ratio]26.3 mg/mgNormalThe [facility] HospitalComment on above:Performed By: #### HSTROPN #### [facility] [address] [place] [address] Dr. Isabell Longoria, HIGH SENSITIVITYon 40-06-7735VYQPIG78.5 pg/mLNormal 4.0-51.3The [facility] HospitalComment on above:Result Comment: CUT-OFF POINTS HAVE BEEN ESTABLISHED BASED ON THE FOURTH UNIVERSAL DEFINITIONS OF MYOCARDIAL INFARCTION. THE UPPER REFERENCE LIMIT (URL) OF TROPONIN, DEFINED THE 99TH PERCENTILE OF cTnI DISTRIBUTION IN A REFERENCE POPULATION, HAS BEEN CONFIRMED THE DECISION THRESHOLD FOR NC DIAGNOSIS.Performed By: #### HSTROPN #### [facility] [address] [place] [address] Dr. Isabell Tijerina 62-91-4046ENU7.628 uIU/mLNormal0.358-3.740The [facility] HospitalComment on above:Performed By: #### HSTROPN #### [facility] [address] [place] [address] Dr. Isabell Naranjo MICROSCOPIC ONLYon 84-81-2616ADRMTXVEESLF SEENNormalNONE SEENThe [facility] HospitalComment on above:Performed By: #### KAREN MORALES #### [facility] [address] [place] [address] Dr. Isabell George identified Cx Nom (U)INDICATEDNoalThOhio State University Wexner Medical CenterComment on above:Performed By: #### CARLENE MORALESRO #### [facility] [address] [place] [address] Dr. Isabell PeñaCASTZENAIDA SEENNormalNONE SEENUniversity Hospitals Conneaut Medical CenterComasc[facility] on above:Performed By: #### KAREN MORALES #### [facility] [address] [place] [address] Dr. Isabell Branhamystals LM Nom (Urine sed)NONE SEENNormalNONE SEENThe [facility] HospitalCom[facility] on above:Performed By: #### KAREN MORALES #### [facility] [address] [place] [address] Dr. Whyte ChangEpithelial cells LM Ql (Urine sed)FEWAbnormalNONE SEEN /RAREThe [facility] HospitalComment on above:Performed By: #### KAREN MORALES #### [facility] [address] [place] [address] Dr. Isabell RajputCOUSNONE SEENNormalNONE SEENUniversity Hospitals Conneaut Medical CenterComasc[facility] on above:Performed By: #### CARLENE MORALESRO #### [facility] [address] [address] [address] Whyte QocsrYRE0-1Pcofbc2-2Jgt [facility] HospitalComment on above:Performed By: #### KAREN MORALES #### [facility] [address] [address] [address] Whyte ChangWBC5-10AbnormalNONE SEENThe [facility] HospitalComment on above: Performed By: #### KAREN MORALES #### [facility] [address] [address] [address] Isabell PeñaCOVID-19 SOFIAOrdered By: Devin Moreau on 03-27-2022 SARS-CoV+SARS-CoV-2 (COVID-19) Ag IA.rapid Ql (Resp)NegativeNegativeKettering Health Washington TownshipComment on above:This is a duplicate Saba SARS Antigen (CORAZON) result to be used for statistical tracking purpose only.No Panel InformationOrdered By: Devin Moreau on [id number] Antigen (LFIA)[facility] HospitalARS Antigen (LFIA)[facility] Basophils Auto (Bld) [#/Vol]Ordered By: Devin Moreau on 01-59-0227Umtdpxthm (Bld) [#/Vol]0.1 10*3/uL0.0-0.2FOhioHealth Mansfield HospitalBasophils/100 WBC Auto (Bld)Ordered By: Devin Moreau on 98-58-9724Oqrdrqhum/100 WBC (Bld)0.8 %.[facility] TownshipCreatinine and Glomerular filtration rate.predicted panel (S/P/Bld)Ordered By: Devin Moreau on 09-57-5004Gafoqfzqph [Mass/Vol]0.98 mg/dL0.44-1.03[facility] Washington TownshipEosinophils Auto (Bld) [#/Vol] Ordered By: Devin Moreau on 06-61-8797Ddksamndufl (Bld) [#/Vol]0.2 10*3/uL0.0-0.45 [facility] TownshipEosinophils/100 WBC Auto (Bld)Ordered By: Devin Moreau on 30-64-5840Zmeewhnbocp/100 WBC (Bld)2.5 %.[facility] Washington TownshipErythrocyte distribution width Auto (RBC) [Ratio]Ordered By: Devin Moreau on 10-74-8474Kixiuaqljfx distribution width (RBC) [Ratio]15.5 %11.9-15.3FOhioHealth Mansfield HospitalEstimated glomerular filtration rate (GFR) non- AmericanOrdered By: Devin Moreau on 05-91-3731SHX/1.73 sq M.predicted among non- blacks MDRD (S/P/Bld) [Vol rate/Area]56 mL/MinKettering Health Washington Township Hematocrit Auto (Bld) [Volume fraction]Ordered By: Devin Moreau on 03-16-2022 Hematocrit (Bld) [Volume fraction]40.9 %34.0-46.4FOhioHealth Mansfield HospitalHemoglobin [Mass/volume] in BloodOrdered By: Devin Moreau on 03-16-2022 Hemoglobin (Bld) [Mass/Vol]13.3 g/dL11.8-15.4FOhioHealth Mansfield Hospital Laboratory - Hematology and Cell countsOrdered By: Devin Moreau on 03-16-2022 Nucleated RBC/100 WBC (Bld) [Ratio]0.1 %0-0.5FOhioHealth Mansfield Hospital Leukocytes [#/volume] in Blood by Automated countOrdered By: Devin Moreau on 97-59-8812FQJ (Bld) [#/Vol]6.8 10*3/uL4.5-11.0[facility] Lymphocytes Auto (Bld) [#/Vol]Ordered By: Devin Moreau on 83-26-7328Hpthwqxnqmv (Bld) [#/Vol]1.3 10*3/uL1.00-4.8[facility] TownshipLymphocytes/100 WBC Auto (Bld)Ordered By: Devin Moreau on 25-29-7366Evzsqtcfnun/100 WBC (Bld)19.5 %.[facility] Auto (RBC) [Entitic mass]Ordered By: Devin Moreau on 60-32-3855JKF (RBC) [Entitic mass]27.7 pg24.7-34.3FOhioHealth Mansfield HospitalMCHC Auto (RBC) [Mass/Vol]Ordered By: Devin Moreau on 22-35-3143FEMQ (RBC) [Mass/Vol]32.6 g/dL32.0-35.0[facility] TownshipMCV Auto (RBC) [Entitic vol]Ordered By: Devin Moreau on 96-90-8438JEP (RBC) [Entitic vol]85.0 aE50-850HfndpmxbnKettering Health Washington TownshipMonocytes Auto (Bld) [#/Vol]Ordered By: Devin Moreau on 03-44-8531Zuzmnvned (Bld) [#/Vol]0.8 10*3/uL 0.0-0.8[facility] TownshipMonocytes/100 WBC Auto (Bld)Ordered By: Devin Moreau on 84-45-9221Ypmotnjog/100 WBC (Bld)11.2 %.[facility] TownshipNeutrophils Auto (Bld) [#/Vol]Ordered By: Devin Moreau on 03-16-2022 Neutrophils (Bld) [#/Vol]4.5 10*3/uL1.8-7.7FOhioHealth Mansfield Hospital Neutrophils/100 WBC Auto (Bld)Ordered By: Devin Moreau on 03-16-2022 Neutrophils/100 WBC (Bld)66.0 %.[facility] TownshipNo Panel InformationOrdered By: Devin Moreau on 02-76-7602Atgvtrxma GFR ()> 60 mL/MinKettering Health Washington TownshipComment on above:GFR estimated reference range: According to KDOQI guidelines, <60 ml/min/1.73m2 is sufficient todiagnose a patient with chronic kidney disease.Pharmacy Creatinine Clearance (ChemN/[facility] HospitalPlatelet mean volume Auto (Bld) [Entitic vol]Ordered By: Devin Moreau on 60-23-8701Ouvdvmll mean volume (Bld) [Entitic vol]8.3 fL6.3-10.7FOhioHealth Mansfield HospitalPlatelets Auto (Bld) [#/Vol]Ordered By: Devin Moreau on 00-65-7851Xrxybvxat (Bld) [#/Vol]302 10*3/uL 150-450[facility] TownshipRBC Auto (Bld) [#/Vol]Ordered By: Devin Moreau on 97-76-6314AQU (Bld) [#/Vol]4.81 10*6/uL3.60-5.00[facility]acon[facility] Hospitalerum or plasma anion gap determinationOrdered By: Devin Moreau on 56-45-4095Inclo gap [Moles/Vol]13.6 mmol/L6.0-15.0[facility] Hospitalerum or plasma calcium measurement (mass/volume)Ordered By: Devin Moreau on 48-57-3499Tweyrzn [Mass/Vol]10.0 mg/dL8.2-10.2FOhioHealth Mansfield Hospital Serum or plasma chloride measurement (moles/volume)Ordered By: Devin Moreau on 34-67-4478Wsvanxpv [Moles/Vol]98 mmol/B18-044OymnyplnfKettering Health Washington Township Serum or plasma glucose measurement (mass/volume)Ordered By: Devin Moreau on 75-47-9563Puifcpq [Mass/Vol]94 mg/oB43-807ZgnszfbeeKettering Health Washington Township Comment on above:ADA recommended reference rangeRandom Glucose Reference Range is dependent on time and content of last meal. Glucose of more than 200 mg/dL in a nonstressed, ambulatory subject supports the diagnosisof Diabetes Mellitus. Serum or plasma potassium measurement (moles/volume)Ordered By: Devin Moreau on 20-49-9142Rmqsvjxez [Moles/Vol]4.8 mmol/L3.5-5.1FSelect Medical Specialty Hospital - Cleveland-Fairhillerum or plasma sodium measurement (moles/volume)Ordered By: Devin Moreau on 88-31-1808Tsxchh [Moles/Vol]137 mmol/F835-186QuzgxwbjoKettering Health Washington Township Serum or plasma total carbon dioxide measurement (moles/volume)Ordered By: Devin Moreau on 71-07-2164GU6 [Moles/Vol]30.2 mmol/L22.0-30.0[facility] Hospitalerum or plasma urea nitrogen measurement (mass/volume)Ordered By: Devin Moreau on 37-94-6847Ogkc nitrogen [Mass/Vol]19 mg/dL9-23[facility] TownshipOffice Visit (Cardiology)on 25-50-7537Czjapl-up visit Diagnoses/Problems Assessed Mitral regurgitation (424.0) (I34.0) [...] Metabolic Panel; Status:Active - Retrospective Authorization; Requested for:[id number]; Complete Blood Count; Status:Active - Retrospective Authorization; Requested for:07Sep2022; Lipid Panel; Status:Active - Retrospective Authorization; Requested for:[id number]; Essential hypertension, PMH: Nonischemic cardiomyopathy Renew: Carvedilol [...] 2021. Ejection fraction 55-60% Bryce Hendrickson MD, [facility] Surgical History Problems History of Appendectomy [...] Recorded: 10Feb2022 08:39AM Heart Rate62, R Radial Hafbkgrk020, RUE, Sitting Ozkswurqo81, RUE, Sitting Height5 ft 1 in Wueufp432 lb BMI Xwqqlyhwmj62.42 kg/m2 BSA Calculated1.72 Tobacco Useb) No PHQ-2 #1. Over the last 2 weeks have you felt down, depressed or hopeless? (If yes, answer PHQ-9 below)No PHQ-2 #2. Over the last 2 weeks have you felt little interest or pleasure in doing things? (If yes,answer PHQ-9 below)No (more content not included)...NormalUH TouchworksTobacco Screening.on 02-10-2022 Adult depression screening assessmentNoTrios Health Cornerstone PharmaceuticalsWalpole [address] DO Work Phone: Fall risk assessmentb) One or more falls in the last yearTrios Health Bond StreetNyu Langone Hospital – Brooklynk 600 DO Work Phone: Tobacco use status CPHSb) [facility] [employer] [place] [address] DO Work Phone: MG MAMM DX 3D RT CADon 33-47-5615RX MAMM DX 3D RT CAD Patient: RENUKA OWEN Exam Date: 02/05/2022 : 1950 Gender:F Ordering : DR AJAY SONG [facility] Admission #: [id number] Family : Order #: [id number] CLICK HERE TO VIEW EXAM RADIOLOGY REPORT PROCEDURE: MAMMOGRAM DIAGNOSTIC 3D RIGHT CAD COMPARISON: MG MAMM DX 3D RT CAD, 02/04/2021. INDICATIONS: Estrogen receptor negative neoplasm Calculator Name NCI Breast Cancer Risk Assessment Tool 5 Year Breast Cancer Risk n/a% Lifetime Breast Cancer Risk n/a% Personal Breast Cancer Yes, Left breast cancer 2012 Personal Ovarian Cancer No Treatments Left mastectomy, radiation, ydyopmukvfra71 Family Cancers Father with testicular cancer at age 27. LOCATION: [facility] BREAST COMPOSITION: Scattered areas fibroglandular density. [...] by: Evelin Lott MD on 02/05/2022 at 14:47Wayne HospitalI LITZY MCCAULEY CONon 03-10-1803XNX [facility] CON[facility]: MRI LITZY MCCAULEY CON HISTORY: [...] Electronically authenticated by: TAMY HOLM Date: 2022-01-09 14:16[facility] HospitalCOVID-19 Positive/NegativeOrdered By: Devin Moreau on 10-06-2021 SARS-CoV-2 (COVID-19) N gene JANET+probe Ql (Resp)NegativeNegativeKettering Health Washington TownshipComment on above:Testing for SARS-CoV-2 by RT-PCR This test was developed and its performance characteristics determined by [employer] and validated at the [facility]. This test has not been FDA cleared [...] Auto (Bld) [#/Vol]Ordered By: Devin Moreau on 15-13-3332Vdvujgnkq (Bld) [#/Vol]0.1 10*3/uL0.0-0.2FOhioHealth Mansfield HospitalBasophils/100 WBC Auto (Bld)Ordered By: Devin Moreau on 09-24-2021 Basophils/100 WBC (Bld)1.2 %[facility] TownshipBlood hemoglobin measurement (mass/volume)Ordered By: Devin Moreau on 96-04-3770Sptoyqzrpy (Bld) [Mass/Vol]12.9 g/dL11.8-15.4FOhioHealth Mansfield HospitalBlood leukocytes automated count (number/volume)Ordered By: Devin Moreau on 51-35-4014BMI (Bld) [#/Vol]5.9 10*3/uL4.5-11.0[facility] TownshipCreatinine and Glomerular filtration rate.predicted panel (S/P/Bld)Ordered By: Devin Moreau on 72-76-7908Ruawysttba [Mass/Vol]0.80 mg/dL0.44-1.03[facility] TownshipEosinophils Auto (Bld) [#/Vol]Ordered By: Devin Moreau on 09-24-2021 Eosinophils (Bld) [#/Vol]0.2 10*3/uL0.0-0.45[facility] Eosinophils/100 WBC Auto (Bld)Ordered By: Devin Moreau on 09-24-2021 Eosinophils/100 WBC (Bld)2.6 %[facility] TownshipErythrocyte distribution width Auto (RBC) [Ratio]Ordered By: Devin Moreau on 09-24-2021 Erythrocyte distribution width (RBC) [Ratio]15.8 %11.9-15.3FOhioHealth Mansfield HospitalEstimated glomerular filtration rate (GFR) non- Ordered By: Devin Moreau on 82-24-2736KUY/1.73 sq M.predicted among non-blacks MDRD (S/P/Bld) [Vol rate/Area]> 60 mL/MinKettering Health Washington Township Hematocrit Auto (Bld) [Volume fraction]Ordered By: Devin Moreau on 09-24-2021 Hematocrit (Bld) [Volume fraction]39.6 %34.0-46.4FOhioHealth Mansfield HospitalLaboratory - Hematology and Cell countsOrdered By: Devin Moreau on 76-76-0873Ydomunndc RBC/100 WBC (Bld) [Ratio]0.0 %0-0.5FOhioHealth Mansfield HospitalLymphocytes Auto (Bld) [#/Vol]Ordered By: Devin Moreau on 09-24-2021 Lymphocytes (Bld) [#/Vol]1.1 10*3/uL1.00-4.8[facility] Lymphocytes/100 WBC Auto (Bld)Ordered By: Devin Moreau on 09-24-2021 Lymphocytes/100 WBC (Bld)18.2 %[facility] Auto (RBC) [Entitic mass]Ordered By: Devin Moreau on 84-07-3266CLZ (RBC) [Entitic mass]27.0 pg24.7-34.3FOhioHealth Mansfield HospitalMCHC Auto (RBC) [Mass/Vol]Ordered By: Devin Moreau on 31-19-7424HMJY (RBC) [Mass/Vol]32.6 g/dL32.0-35.0[facility] TownshipMCV Auto (RBC) [Entitic vol]Ordered By: Devin Moreau on 43-82-0648QLS (RBC) [Entitic vol]82.7 qN69-832DzjgkptutKettering Health Washington Township Monocytes Auto (Bld) [#/Vol]Ordered By: Devin Moreau on 43-92-8958Njqtsknwa (Bld) [#/Vol]0.7 10*3/uL0.0-0.8[facility] TownshipMonocytes/100 WBC Auto (Bld)Ordered By: Devin Moreau on 56-89-2533Ifammjrce/100 WBC (Bld)11.4 %[facility] TownshipNeutrophils Auto (Bld) [#/Vol]Ordered By: Devin Moreau on 43-27-4139Ljeemzwmyhi (Bld) [#/Vol]3.9 10*3/uL1.8-7.7FOhioHealth Mansfield HospitalNeutrophils/100 WBC Auto (Bld)Ordered By: Devin Moreau on 09-24-2021 Neutrophils/100 WBC (Bld)66.6 %[facility] TownshipNo Panel InformationOrdered By: Devin Moreau on 02-96-9180Wcnokowyg GFR ()> 60 mL/MinKettering Health Washington TownshipComment on above:GFR estimated reference range: According to KDOQI guidelines, <60 ml/min/1.73m2 is sufficient todiagnose a patient with chronic kidney disease.Pharmacy Creatinine Clearance (ChemN/[facility] HospitalPlatelet mean volume Auto (Bld) [Entitic vol]Ordered By: Devin Moreau on 47-91-1679Twaxcigy mean volume (Bld) [Entitic vol]7.6 fL6.3-10.7FOhioHealth Mansfield HospitalPlatelets Auto (Bld) [#/Vol]Ordered By: Devin Moreau on 38-10-8144Ynzupukvb (Bld) [#/Vol]296 10*3/uL 150-450[facility] TownshipRBC Auto (Bld) [#/Vol]Ordered By: Devin Moreau on 57-94-7216PLK (Bld) [#/Vol]4.79 10*6/uL3.60-5.00[facility] Hospitalerum or plasma calcium measurement (mass/volume)Ordered By: Devin Moreau on 58-51-7977Owsukqt [Mass/Vol]8.7 mg/dL8.2-10.2FSelect Medical Specialty Hospital - Cleveland-Fairhillerum or plasma chloride measurement (moles/volume)Ordered By: Devin Moreau on 19-81-2026Knwoxnrw [Moles/Vol]100 mmol/C84-532OflgqtjpwProtestant Deaconess Hospitalerum or plasma glucose measurement (mass/volume)Ordered By: Devin Moreau on 62-21-9528Urlugsm [Mass/Vol]90 mg/oQ03-003YmknjnmuaKettering Health Washington Township Comment on above:ADA recommended reference range Random Glucose Reference Range is dependent on time and content of last meal. Glucose of more than 200 mg/dL in a nonstressed, ambulatory subject supports the diagnosis of Diabetes Mellitus.Serum or plasma potassium measurement (moles/volume)Ordered By: Devin Moreau on 18-99-2499Eozvsmvtg [Moles/Vol]4.1 mmol/L3.5-5.1FSelect Medical Specialty Hospital - Cleveland-Fairhillerum or plasma sodium measurement (moles/volume)Ordered By: Devin Moreau on 36-21-2957Jkmlov [Moles/Vol]136 mmol/L 136-146Pro[facility]aconess Hospitalerum or plasma total carbon dioxide measurement (moles/volume)Ordered By: Devin Moreau on 87-15-3736PN7 [Moles/Vol] 25.2 mmol/L22.0-30.0[facility] Hospitalerum or plasma urea nitrogen measurement (mass/volume)Ordered By: Devin Moreau on 56-36-6255Tpgq nitrogen [Mass/Vol]20 mg/dL9-23[facility] TownshipBasic Metabolic Panlon 82-20-2493Riozz gap [Moles/Vol]16 mmol/LNormal9-18FHoly Family Hospital Comment on above:Performed By: #### BMP, CBCDIF ####[facility] [place], [place] 63002028-077-3913Kuftmuc [Mass/Vol]9.3 mg/dLNormal 8.5-10.5FHoly Family HospitalComment on above:Performed By: #### JOSE, CBCDIF ####[place] [phone] [Moles/Vol]101 mmol/NJmnqlv02-875Izaziqsw HospitalComment on above:Performed By: #### JOSE, CBCDIF ####[place] [address]CO2 [Moles/Vol]22 mmol/TBjr41-46Njdscdes HospitalComment on above:Performed By: #### JOSE, CBCDIF ####[place] [address]Creatinine [Mass/Vol]0.84 mg/dLNormal 0.70-1.40Faboston city hospital HospitalComment on above:Performed By: #### JOSE, CBCDIF ####[place] [phone]- Amer.>60Normal>60Faboston city hospital HospitalComment on above:Performed By: #### JOSE, CBCDIF ####[place] [address]GFR/1.73 sq M predicted among non-blacks MDRD (S/P/Bld) [Vol rate/Area]mL/min/{1.73_m2}Normal>60Faboston city hospital HospitalComment on above:Performed By: #### JOSE, CBCDIF ####[place] [address]Glucose [Mass/Vol]115 mg/xVXwlx99-909Jxjrouyz HospitalComment on above:Performed By: #### JOSE, CBCDIF ####[place] [phone] [Moles/Vol]3.6 mmol/LNormal 3.5-5.0Faboston city hospital HospitalComment on above:Performed By: #### JOSE, CBCDIF ####[place] [phone] [Moles/Vol]139 mmol/SOgjpnt100-174Psltusoi HospitalComment on above:Performed By: #### JOSE CBCDIF ####[place] [phone] nitrogen [Mass/Vol]16 mg/dLNormal8-25[facility] Comment on above:Performed By: #### JOSE CBCDIF ####[place] [phone] and Differentialon 99-04-3094Sdm Baso<0.03Normal<0.11Faboston city hospital HospitalComment on above:Performed By: #### JOSE CBCDIF ####[place] [phone] Abs Mono0.48 k/uLNormal<0.87Faboston city hospital HospitalComment on above:Performed By: #### JOSE CBCDIF ####[place] [phone] Neut7.17 k/uLNormal1.45-7.50Faboston city hospital HospitalComment on above:Performed By: #### JOSE CBCDIF ####[place] [phone] nRBC<0.01Normal<0.01[facility] HospitalComment on above:Performed By: #### JOSE CBCDIF ####[place] [phone]/100 WBC (Bld)0.1 %NormalFaboston city hospital HospitalComment on above:Performed By: #### JOSE CBCDIF ####[place] [phone] Auto DiffNormalFaboston city hospital HospitalComment on above:Performed By: #### JOSE CBCDIF ####[place] [phone] Eosinophils (Bld) [#/Vol]10*3/uLNormal<0.46FaThe Dimock CenterComment on above: Performed By: #### JOSE, CBCDIF ####[place] [phone]/100 WBC (Bld)0.0 %Normal [facility] CenterComment on above:Performed By: #### JOSE, CBCDIF ####[place] [phone] distribution width (RBC) [Ratio]13.9 %Anynxr97.5-15.0[facility] HospitalComment on above:Performed By: #### JOSE, CBCDIF ####[place] [phone] (Bld) [Volume fraction]37.7 % Kszyzc26.0-46.0[facility] HospitalComment on above:Performed By: #### JOSE, CBCDIF ####[place] [phone] Hemoglobin (Bld) [Mass/Vol]12.4 g/fJQvikou49.5-15.5FHoly Family HospitalComment on above:Performed By: #### JOSE, CBCDIF ####[place] [phone] (Bld) [#/Vol]0.98 10*3/uLLow 1.00-4.00Faboston city hospital HospitalComment on above:Performed By: #### JOSE, CBCDIF ####[place] [phone] Lymphocytes/100 WBC (Bld)11.3 %NormalSaints Medical CenterComment on above:Performed By: #### JOSE, CBCDIF ####[place] [phone] (RBC) [Entitic mass]27.3 dNFpugkn59.0-34.0[facility] Comment on above:Performed By: #### BMP, CBCDIF ####[place] [phone] (RBC) [Mass/Vol]32.9 g/dLNormal 30.5-36.0[facility] HospitalComment on above:Performed By: #### BMP, CBCDIF ####[place] [phone] (RBC) [Entitic vol]82.9 rQHdvxoj18.0-100.0[facility] HospitalComment on above:Performed By: #### JOSE, CBCDIF ####[place] [address]Monocytes/100 WBC (Bld)5.6 %NormalConnerville HospitalComment on above:Performed By: #### JOSE, CBCDIF ####[place] [phone]/100 WBC (Bld)83.0 %Normal [facility] HospitalComment on above:Performed By: #### JOSE, CBCDIF ####[place] [phone] /100 WBC Wbycpp7Ygvnjchz HospitalComment on above:Performed By: #### BMP, CBCDIF ####[place] [phone] mean volume (Bld) [Entitic vol]10.3 fLNormal9.0-12.7Ftruesdale hospital HospitalComment on above:Performed By: #### BMP, CBCDIF ####[place] [phone] (Bld) [#/Vol]271 10*3/uLNormal 150-400Faboston city hospital HospitalComment on above:Performed By: #### BMP, CBCDIF ####[place] [phone] (Bld) [#/Vol]4.55 10*6/uLNormal3.90-5.20[facility] CenterComment on above:Performed By: #### BMP, CBCDIF ####[place] [address] [place], [place] [phone] (Bld) [#/Vol]8.64 10*3/uLNormal3.70-11.00[facility] Comment on above:Performed By: #### BMP, CBCDIF ####[place] [address] [place], [place] [phone] PROGon 76-16-6476NIWLDGF [facility] ID: [id number] Author: Janelle Pillai) JAYA Cast Service: ? Author Type: Registered Nurse Type: Nursing Progress Note Filed: 06/20/2020 12:33 PM Note Text: Nursing Progress Note Patient Name: Renuka Owen Patient Location: [place] [address] Daily Note: 0800: Patient awake in [...] any NANDV a this time. 1050: Sandhya (EDGING MACHINE CATCHER) Willner at bedside to discuss plan of care. Plan for discharge this afternoon. 1230: IVs removed, discharge teaching completed. No further questions at this time. This note was completed by: Bassam PadillaFranciscan Children'sPROGRESSon 64-66-9442NDJNQZODPXI ID: [id number] Author: Vasyl Castillo Service: Colorectal Author Type: [...] Castillo MD,PhD General Surgery, PGY3 Service Pager: [phone] After 6PM, weekends, and holidays: bearing inspector pager: [phone] Patient Active Hospital Problem List: Obesity, Class [...] 0659 06/20/20 07 - 06/21/20 0659 Shift 0881-4586 6808-2101 5776-4284 24 Hour Total 7508-0424 7028-5211 0363-7256 24 Hour Total INTAKE PO 300 300 [...] protocol in the MR contrast administration guidelines link.[facility] ID: [id number] Author: Anahi Walton Service: General Surgery Author [...] post-operative care Anahi Walton MD General Surgery PPT3HxfeslNojkfdhpFranciscan Children'sANES POSTPROC EVALon 77-43-7842KMOI POSTPROC EVALHNO ID: [id number] Author: Tj Hill Service: Anesthesiology Author Type: [...] June 19, 2020 TIME: 5:06 PM CSN: [id number] Naval Hospital PRE-OPon 67-78-0623XZEK PRE-OPHNO ID: [id number] Author: Ricardo Arvizu Service: Anesthesiology Author Type: [...] June 19, 2020 TIME: 1:32 PM CSN: [id number] State Hospital 06-19-2020 [facility] ID: [id number] Author: Willow JonesRn) JAYA Mon Service: ? Author Type: Registered Nurse Type: Nursing Progress Note Filed: 06/19/2020 9:48 PM Note Text: Nursing Progress Note Patient Name: Renuka Owen Patient Location: [address]LM[address]Q-90 Transfer Note: Patient transferred into room/unit PK322 in stable condition. Actions taken: No futher actions taken at this time. Will continue to monitor and check with patient. This note was completed by: Willow Mon RNSaint Monica's Home ID: [id number] Author: Jody JonesRnJames Hanna RN Service: Nursing [...] PROVIDED TO PATIENT: None REFERRAL (RECOMMENDATION): None ZVSCSNLHG [facility] ID: [id number] Author: Saman Lorenzo Service: Colorectal Author Type: Physician Type: Operative Report Filed: 06/21/2020 9:35 AM Note Text: [facility] - Operative Report RENUKA OWEN : 1950 AGE: 69. SEX: F PATIENT TYPE: I HOSP SVC: CORS LOCATION: [facility] ATTENDING PHYSICIAN: Saman Lorenzo M.D. CSN NUMBER: [id number] DATE OF SURGERY/PROCEDURE: 06/19/2020 INCISION/PROCEDURE START TIME: 1446 hours. INCISION CLOSE/PROCEDURE END TIME: 1600 hours. 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 SURGEON: Saman Lorenzo M.D. TRAVELING PASSENGER AGENT: Dr. Krunal Meyer and Triny He. SURGERY/PROCEDURE: [...] taken to recovery room. Saman Lorenzo M.D. ARANZAT:[id number] /[id number] [facility] HospitalURGICAL PATHOLOGYon 34-38-1372HIKSMWCN PATHOLOGYSpecimen originated from [facility] Specimen #: [id number] Submitting Physician: SAMAN LORENZO FINAL DIAGNOSIS Presacral [...] in-situ hybridization tests have been determined by [facility]'s Emory Snowdensich Pathology and Laboratory Medicine Foreman ([facility]ENTERPLNC) in a manner consistent with CLIA requirements. One or more of these tests have not been cleared or approved by the FDA. [facility] is regulated under CLIA as qualified [...] 1 cm from the bone resection margin. Field Mechanical Meter Tester sections are submitted as follows: A1-A3 nodule with inked outer surface; A4-A7 nodule with entire bone resection margin following light decalcification. Iban 06/20/2020 Gross examination performed at [facility], [address] [place] [address] Date of Report: 06/25/2020 Date of Procedure: 06/19/2020 Date of Receipt: 06/20/2020 Submitted by: SAMAN LORENZO Location: FVPK3B Diagnostic interpretation performed at [facility], [address] [place] [address]. CLIA Number: [id number] State Hospital [id number] (REFAIR) RENUKA OWEN ([id number]) 1950 F Date Time Provider Department 06/18/20 EVON ZUNIGA During your visit today, we recorded the following information about you: Nick Vamshi Elaina Javier [facility] 06/18/2020 12:13 PM Signed IRB# [id number], Perioperative ISchemic Evaluation 3 (POISE-3), PI: Jeovanny Duque MD. [place] [facility] Specialist: Evon Zuniga MD, UMANG, FAS. [employer]. Anesthesia Foreman. This is a research study note. Patient assessments recorded here should not guide either clinical care or clinical decision-making. Patient contacted on behalf of [employer] (Anesthesia Foreman) regarding eligibility for PeriOperative Ischemic Evaluation 3 [...] review. Nick Cardoso MD Research Fellow Anesthesiology Foreman Outcomes Research Department [facility] Allergies As of Date: 06/18/2020 [...] 06/03/2020 More... Encounter Status:Closed by ELAINA JAVIER [facility], NICK HOANG on 06/18/20Normal [facility] CenterType and SCR (30D)on 50-02-1157WEL/RH(D)PositiveNoWestwood Lodge Hospital HospitalComment on above:Performed By: #### [facility] ####[facility] [place], [place] [phone] 04-89-5259KCTR Patient:Renuka Owen MRN: Height:5' 2 [patient reported[(1.575 [...] % 06/05/2020 46.0 36.0 Progress Notes ([facility]): Nick Vamshiselena Javier [facility] 06/18/2020 12:13 PM Signed IRB# [id number], Perioperative ISchemic Evaluation 3 (POISE-3), PI: Jeovanny Duque MD. [place] [facility] Specialist: Evon Zuniga MD, UMANG, FASA. [employer]. Anesthesia Foreman. This is a research study note. Patient assessments recorded here should not guide either clinical care or clinical decision-making. Patient contacted on behalf of [employer] (Anesthesia Foreman) regarding eligibility for PeriOperative Ischemic Evaluation 3 [...] review. Nick Cardoso MD Research Fellow Anesthesiology Foreman Outcomes Research Department [facility] Progress Notes ([facility]): Megan Batista RN, RN 05/31/2020 12:22 PM Signed Call placed to patient for pre op surgical discussion. She is aware of surgery date of 06/19 and has PACC and Covid 19 testing scheduled. All bowel prep reviewed with patient and sent via My Chart. Pt appreciative of the discussion and contact. Reviewed typical post op expectations and follow up in office. [facility] 15-82-1551PWDNBG HEALTHHNO ID: [id number] Author: Pierce Aguila (Tech) Service: Radiology Author Type: Clinical Dietetic Technician Type: Allied Health Filed: 05/15/2020 1:03 PM [...] Owen DATE: May 15, 2020 TIME: 1:02 [facility]MRI RE[facility] WO/W IVCONon 80-86-2888FDE RECTUM WO/W IVCON* * *Final Report* * [...] axial oblique STIR: axial T1 in and lvl-ii-vtbgi: axial HASTE: coronal large field of view [...] suspicious appearing mesorectal or extramesorectal lymph nodes. Payloader Operator: CARTER Transcribe Date/Time: May 15 2020 1:45P Dictated by : BLAKE PARKER MD This examination was interpreted and the report reviewed and electronically signed by: BLAKE PARKER MD on May 15 2020 2:28PM EST [id number]_IDCSIACNNormalSaints Medical CenterPhysician Referralon 04-24-2020 Physician [id number]:127Normal [facility]Phys[facility] Referralon 89-79-9003Ehrcecgba Referral [id number]:127NoParkview HealthCoding Summary.on 69-35-5033Qnknig Summary.CODING DATE: 03/26/2020 FINAL [facility] DSCH STATUS: Home (Routine DC) PAYOR: [...] Kathrin Abarca CphT Date Saved: 03/26/2020 09:23 [facility] Maxillofacial w/o Contraston [id number] Maxillofacial w/o ContrastExam Date/Time: 03/25/2020 11:02 EST [...] Ara Edge MD Transcribed by: SHAKILA Technologist: [facility] FoundationConsent for Treatmenton [id number] for Treatment [id number]:[address] [place], [place] [address]Physician Orderon 69-59-9641Woylmgmle Order [id number]:[address] [place], [place] [address]CBCon 77-71-0595Qonjcrarvmb distribution width Auto Ratio (RBC)14.9 % Ohokbf56.0-15.4EMH HealthcareComment on above:Performed By: #### [id number] ####[address] [place] [address] Hematocrit Auto Volume Fraction (Bld)39.6 %Grnncc59.5-46.6EMH HealthcareComment on above:Performed By: #### [id number] ####[facility] [address] [place], [place] [address]Juvskvgdnu mass conc (Bld)12.8 g/dL Nbmdps57.8-15.3EMH HealthcareComment on above:Performed By: #### [id number] ####[facility] [address] [place] [address] MCH Auto Entitic mass (RBC)27.8 ciTqaimz13.5-33.0EMH HealthcareComment on above: Performed By: #### [id number] ####[facility] [address] [place], [place] [address]MSQH Auto mass conc (RBC)32.3 g/yHIthnuv09.1-35.0EMH HealthcareComment on above:Performed By: #### [id number] ####[facility] [address] [place], [place] [address]GPJ Auto Entitic volume (RBC)85.9 jNOpabym50.4-100.0EMH HealthcareComment on above:Performed By: #### [id number] ####[facility] [address] [place] [address]XEHX Absolute0.00 10*3/uLNormalEMH HealthcareComment on above:Performed By: #### [id number] ####[facility] [address] [place] [address]NRVP Automated0.0 /100{WBCs}NormalEMH HealthcareComment on above:Performed By: #### [id number] ####[facility] [address] [place] [address]Zqjsbmtr mean volume Auto Entitic volume (Bld) 10.9 fLNormal9.9-12.1EMH HealthcareComment on above:Performed By: #### [id number] ####[facility] [address] [place] [address] Platelets Auto #/vol (Bld)176 10*3/mVRgemqa030-772FMH HealthcareComment on above:Performed By: #### [id number] ####[facility] [address] [place] [address]KKA Auto #/vol (Bld)4.61 10*6/uLNormal3.85-5.10 EMH HealthcareComment on above:Performed By: #### [id number] ####[facility] [address] [place] [address]ATU SD46.7 fL Gtwbjb83.3-48.6EMH HealthcareComment on above:Performed By: #### [id number] ####[facility] [address] [place] [address] WBC Auto #/vol (Bld)6.2 10*3/uLNormal4.4-9.9EMH HealthcareComment on above: Performed By: #### [id number] ####[facility] [address] [place], [place] [address]Mkwtpelbqwrm 92-38-7309Zkzymbwuil mass conc1.04 mg/dL Normal0.50-1.05EMH HealthcareComment on above:Performed By: #### [id number] ####[facility] [address] [place] [address] GFR/1.73 sq M.predicted MDRD vol rate/area53 mL/min/{1.73_m2}NormalEMH HealthcareComment on above:Result Comment: Interpretation for Chronic Kidney Disease:Stages 1&2 >60 Healthy or potential kidney damage.Mild decrease of GFR.Stage 3 30-59 Moderate decrease of GFR.Stage 4 15-29 Severe decrease of GFR.Stage 5 <15 Kidney failure or on dialysis.Performed By: #### [id number] ####[facility] [address] [place] [address] Electrolyte Panelon 92-09-1847Cqxuc gap 3 molar conc12 mmol/PCoetef60-38UST HealthcareComment on above:Performed By: #### [id number] ####[facility] [address] [place] [address]44[address]Yqksqxzb molar pdhm726 mmol/TPqeqsp90-976PSR HealthcareComment on above:Performed By: #### [id number] ####[facility] [address] [place] [address] HCO3 molar conc (Bld)30 mmol/LAfzgxq73-60DBL HealthcareComment on above: Performed By: #### [id number] ####[facility] [address] [place], [place] [address]Grtiyvrhu molar conc3.7 mmol/LNormal3.5-5.1EMH HealthcareComment on above:Performed By: #### [id number] ####[facility] [address] [place], [place] [address]Qiigce molar jxsp944 mmol/NAafelq734-004HXK HealthcareComment on above:Performed By: #### [id number] ####[facility] [address] [place] [address] Urea Nitrogenon 41-17-5693Ijja nitrogen mass conc28 mg/dL[address] [place] [address] Comment on above:Performed By: #### [id number] ####[facility] [address] [place] [address] Vital Signs Date TimeVital SignValuePerforming IfjokhzzbJsepawoz83-12-4564 13:36-0400Body frhugu392.9 [facility] [address] [place], [place] 9545010-20-2025 13:36-0400Body mass index (BMI) [Ratio]27.96 kg/m[address] 02-19-2025 13:36-0400Body pihhom89.[address] 02-19-2025 13:36-0400Diastolic blood ctfytccs38 mm[Hg][address]10-20-2025 13:36-0400Systolic blood mm[Hg][address]09-30-2025 09:30-0400Body .9 cmBryce Hendrickson MD Work Phone: [facility]09-30-2025 09:30-0400 Body mass index (BMI) [Ratio]28.08 kg/n3FnjpptBryce Hendrickson MD Work Phone: [facility]09-30-2025 09:30-0400 Body rjkopi45.41 kgBryce Hendrickson MD Work Phone: [facility]09-30-2025 09:30-0400 Diastolic blood euinfwje34 mm[Hg]Bryce Hendrickson MD Work Phone: [facility]09-30-2025 09:30-0400 Heart rate68 /minBryce Hendrickson MD Work Phone: [facility]09-30-2025 09:30-0400 Systolic blood ygqzcpfs781 mm[Hg]Bryce Hendrickson MD Work Phone: [facility]09-15-2025 11:46-0400 Body ybzcns748.48 cmBenjamin Ball DO Work Phone: 1(067)204-[address] [place], [place] 0679609-15-2025 11:46-0400 Body mass index (BMI) [Ratio]27.4 kg/c1Kmweiimn Ball DO Work Phone: 1(672)[address] [place], [place] 9592609-15-2025 11:46-0400 Body bikonc12.15 kgBenjamin Ball DO Work Phone: [phone])[address] [place], [place] 9592609-15-2025 11:46-0400 Diastolic blood pejwycna07 mm[Hg]Sylvester Ball DO Work Phone: 1(218)[address] [place], [place] 9592609-15-2025 11:46-0400 Heart rate72 /minBenjamin Ball DO Work Phone: 1(919)[address] [place], [place] 9592609-15-2025 11:46-0400 Respiratory rate12 /minBenjamin Ball DO Work Phone: 1(899)[address] [place], [place] 9592609-15-2025 11:46-0400 Systolic blood yaundnmz298 mm[Hg]Sylvester Ball DO Work Phone: 1(071)[address] [place], [place] 9592609-11-2025 16:14-0400 Body tthpev155.48 cmBenjamin Ball DO Work Phone: 1(004)[address] [place], [place] 9592609-11-2025 16:14-0400 Body mass index (BMI) [Ratio]27.2 kg/v5Hxjokoie Ball DO Work Phone: 1(093)[facility] [place], [place] 0679609-11-2025 16:14-0400 Body .8 [degF]Sylvester Ball DO Work Phone: 1(741)[facility] [place], [place] 0679609-11-2025 16:14-0400 Body iqnlis93.58 kgBenjamin Ball DO Work Phone: 1(956)[address] [place], [place] 9592609-11-2025 16:14-0400 Diastolic blood feomazfx15 mm[Hg]Sylvester Ball DO Work Phone: 1(713)257-53[facility]09-11-2025 16:14-0400 Heart rate77 /minBenjamin Ball DO Work Phone: 1(083)387-[address] [place], [place] 0679609-11-2025 16:14-0400 Respiratory rate18 /minBenjamin Ball DO Work Phone: 1(527)[address]09-11-2025 16:14-0400 SaO2% (BldA) [Mass fraction]97 %Sylvester Ball DO Work Phone: 1(403)299-[address] [place], [place] 0679609-11-2025 16:14-0400 Systolic blood lqcopdrj94 mm[Hg]Sylvester Ball DO Work Phone: 1(126)[address]08-01-2025 09:33-0400 Diastolic blood wplgwvav78 mm[Hg]Sylvester Ball DO Work Phone: 1(685)[address] [place], [place] 9592608-01-2025 09:33-0400 Systolic blood inecjpic358 mm[Hg]Sylvester Ball DO Work Phone: 1(700)[address] [place], [place] 9592608-01-2025 06:19-0400 Body wkottf04.9 kgBenjamin Ball DO Work Phone: 1(217)[address] [place], [place] 9592608-01-2025 06:16-0400 Body auxgxugwvzt34.5 [degF]Sylvester Ball DO Work Phone: 1(043)[address]08-01-2025 06:16-0400 Heart uejb036 /minBenjamin Ball DO Work Phone: 1(201)528-[address] [place], [place] 0679608-01-2025 06:16-0400 Respiratory rate16 /minBenjamin Ball DO Work Phone: 1(830)[address] [place] 9592608-01-2025 06:16-0400 SaO2% (BldA) [Mass fraction]96 %Sylvester Ball DO Work Phone: 1(675)[address]07-29-2025 12:55-0400 Body .48 cmBenjamin Ball DO Work Phone: 1(419)[address]07-15-2025 08:54-0400 Body gvmaxqwthdv54 [degF]Sylvester Ball DO Work Phone: 1(854)[address] [place], [place] 9592607-15-2025 08:54-0400 Diastolic blood tdsoapkr26 mm[Hg]Sylvester Ball DO Work Phone: 1(462)[address] [place], [place] 9592607-15-2025 08:54-0400 Heart afsx657 /minBenjamin Ball DO Work Phone: 1(301)[address] [place], [place] 9592607-15-2025 08:54-0400 Respiratory rate18 /minBenjamin Ball DO Work Phone: 1(514)[address] [place], [place] 9592607-15-2025 08:54-0400 SaO2% (BldA) [Mass fraction]98 %Sylvester Ball DO Work Phone: 1(450)[address] [place], [place] 9592607-15-2025 08:54-0400 Systolic blood gvlymybq972 mm[Hg]Sylvester Ball DO Work Phone: 1(038)[address] [place], [place] 9592607-15-2025 06:00-0400 Body .7 kgBenjamin Ball DO Work Phone: 1(187)[address] [place], [place] 9592607-14-2025 14:31-0400 Body .02 cmBenjamin Ball DO Work Phone: 1(179)[address] [place], [place] 9592607-12-2025 07:00-0400 Inhaled oxygen flow rate2 L/minBenjamin Ball DO Work Phone: 1(990)[address] [place], [place] 9592607-11-2025 11:07-0400 Inhaled oxygen suoxxhwtmsesx94 %Sylvester Ball DO Work Phone: 1(272)[address] [place], [place] 9592607-03-2025 16:35-0400 Body bjajlr237.02 cmBenjamin Ball DO Work Phone: 1(623)[address] [place], [place] 9592607-03-2025 16:35-0400 Body cpjomgmfgqs61.6 [degF]Sylvester Ball DO Work Phone: 1(796)[address] [place], [place] 9592607-03-2025 16:35-0400 Body mbgxej91.8 kgBenjamin Ball DO Work Phone: 1(489)984-43[facility]07-03-2025 16:35-0400 Diastolic blood rasbnsxd42 mm[Hg]Sylvester Ball DO Work Phone: 1(089)276-29[facility]07-03-2025 16:35-0400 Heart rate80 /minBenjamin Ball DO Work Phone: 1(028)407-[address] [place], [place] 0679607-03-2025 16:35-0400 Inhaled oxygen flow rate3 L/minBenjamin Ball DO Work Phone: 1(463)187-[address] [place], [place] 0679607-03-2025 16:35-0400 Respiratory rate14 /minBenjamin Ball DO Work Phone: 1(193)392-[address] [place], [place] 0679607-03-2025 16:35-0400 SaO2% (BldA) [Mass fraction]98 %Sylvester Ball DO Work Phone: 1(053)105-[address] [place], [place] 0679607-03-2025 16:35-0400 Systolic blood dsajbduw55 mm[Hg]Sylvester Ball DO Work Phone: 1(750)510-[address] [place], [place] 0679606-23-2025 11:00-0400 Body rfivro122.5 cmBran Linda MD Work Phone: 1(748)2-[address] [place], [place] [address]Ldkcojphez26-70-7038 11:00-0400Body mass index (BMI) [Ratio]28.53 kg/s7BgzaaixBran Linda MD Work Phone: 1(815)[address] [place], [place] [address]Sogcctbvtq86-92-0688 11:00-0400Body jvutaq57.76 kgBran Linda MD Work Phone: 4(380)3-[address] [place], [place] [address]Cketmfdhmy13-01-7647 11:00-0400Diastolic blood dtowinhy51 mm[Hg]Bran Linda MD Work Phone: 0(510)8-[address] [place], [place] [address]Autlzdejzf72-34-7417 11:00-0400Systolic blood fzwjfvea346 mm[Hg]Bran Linda MD Work Phone: 5(386)2-[address] [place], [place] [address]Prjxpfompm31-62-6316 11:50-0400Body .48 cm[facility]05-30-2025 11:50-0400Body mass index (BMI) [Ratio]30 kg/c8YflhlugbdK[facility]05-30-2025 11:50-0400Body weight 74.61 kgK[facility]05-30-2025 11:50-0400Diastolic blood mm[Hg][facility]05-30-2025 11:50-0400Heart rate73 /[facility]05-30-2025 11:50-0400Respiratory rate12 /[facility]05-30-2025 11:50-0400Systolic blood mm[Hg][facility]05-29-2025 10:08-0400Body .5 cmSteven Rusher DPM Work Phone: 1(766)[address]05-29-2025 10:08-0400Body mass index (BMI) [Ratio]28.9 kg/k7Mrbqii Rusher DPM Work Phone: 1(479)[address]05-29-2025 10:08-0400Body zvxzbe70.67 kgSteven Rusher DPM Work Phone: 1(945)[address]05-07-2025 14:33-0400Body htuvon983.5 cmSteven Rusher DPM Work Phone: 1(424)[address] [place], [place] 3877205-07-2025 14:33-0400Body mass index (BMI) [Ratio]28.9 kg/z5Jrblel Rusher DPM Work Phone: 1(915)[address]05-07-2025 14:33-0400Body huwucv64.67 kgSteven Rusher DPM Work Phone: 1(143)[address]05-05-2025 10:32-0400Body tpumkn279.48 cmBenjamin Ball DO Work Phone: [facility]05-05-2025 10:32-0400 Body mass index (BMI) [Ratio]29.1 kg/h2Yxjarqhn Ball DO Work Phone: [facility]05-05-2025 10:32-0400 Body dmefxj00.29 kgBenjamin Ball DO Work Phone: [facility]05-05-2025 10:32-0400 Diastolic blood zxeakbwk70 mm[Hg]Sylvetser Ball DO Work Phone: [facility]05-05-2025 10:32-0400 Heart rate67 /minBenjamin Ball DO Work Phone: [facility]05-05-2025 10:32-0400 Respiratory rate12 /minBenjamin Ball DO Work Phone: [facility]05-05-2025 10:32-0400 SaO2% (BldA) [Mass fraction]99 %Sylvester Ball DO Work Phone: [facility]05-05-2025 10:32-0400 Systolic blood lufdybyr884 mm[Hg]Sylvester Ball DO Work Phone: [facility]04-21-2025 11:04-0400 Body mass index (BMI) [Ratio]30.11 kg/a7FjurwJacob Mercado MD Work Phone: [facility]04-21-2025 11:04-0400Body temperature 97.39 [degF]Jacob Mercado MD Work Phone: [facility]04-21-2025 11:04-0400Body .7 kgJacob Mercado MD Work Phone: [facility]04-21-2025 11:04-0400Diastolic blood vzdacpzn05 mm[Hg]Jacob Mercado MD Work Phone: [facility]04-21-2025 11:04-0400Heart rate67 /min Jacob Mercado MD Work Phone: [facility]04-21-2025 11:04-0400Respiratory rate 18 /minJacob Mercado MD Work Phone: [facility]04-21-2025 11:04-3810ReZ3% (BldA) [Mass fraction]99 %Jacob Mercado MD Work Phone: [facility]04-21-2025 11:04-0400Systolic blood codfzsae906 mm[Hg]Jacob Mercado MD Work Phone: [facility]03-03-2025 13:24-0500Body .48 cmArthur William PA-C Work Phone: [facility]03-03-2025 13:24-0500 Body mass index (BMI) [Ratio]27.7 kg/t9Iecjwp William PA-C Work Phone: [facility]03-03-2025 13:24-0500 Body hchfhqokijd14.8 [degF]Romel William PA-C Work Phone: 3(770)346-56[facility]03-03-2025 13:24-0500 Body ubtewn28.71 kgArthur William PA-C Work Phone: [facility]03-03-2025 13:24-0500 Diastolic blood mvtweito58 mm[Hg]Romel William PA-C Work Phone: 0(210)458-24[facility]03-03-2025 13:24-0500 Heart rate80 /minArthur William PA-C Work Phone: [facility]03-03-2025 13:24-0500 Respiratory rate16 /minArthur William PA-C Work Phone: [facility]03-03-2025 13:24-0500 SaO2% (BldA) [Mass fraction]97 %Romel William PA-C Work Phone: 3(581)593-06[facility]03-03-2025 13:24-0500 Systolic blood mm[Hg]Romel William PA-C Work Phone: 5(719)505-15[facility]02-27-2025 10:06-0500 Body .48 cmArtjoshuar William PA-C Work Phone: 1(651)455-74[facility]02-27-2025 10:06-0500 Body mass index (BMI) [Ratio]28.5 kg/s2Emcxed William PA-C Work Phone: [facility]02-27-2025 10:06-0500 Body xhvgel60.76 kgArthur William PA-C Work Phone: 1(197)660-[address] [place], [place] 5414302-03-2025 12:00-0500 Diastolic blood hskowyjv92 mm[Hg]Romel William PA-C Work Phone: 5(552)316-[address] [place], [place] 5414302-03-2025 12:00-0500 Heart rate94 /minArthur William PA-C Work Phone: 3(329)795-[address] [place], [place] 5414302-03-2025 12:00-0500 Respiratory rate17 /minArthur William PA-C Work Phone: 3(158)927-[address] [place], [place] 5414302-03-2025 12:00-0500 SaO2% (BldA) [Mass fraction]98 %Romel William PA-C Work Phone: 9(999)023-[address] [place], [place] 5414302-03-2025 12:00-0500 Systolic blood ezbdmpsz522 mm[Hg]Romel William PA-C Work Phone: 3(839)977-97[facility]02-03-2025 09:44-0500 Body gfuewhhrlpn51 [degF]Romel William PA-C Work Phone: 1(647)281-[address] [place], [place] 5414302-03-2025 06:00-0500 Body hyiedt67 kgArthur William PA-C Work Phone: 5(257)234-[address] [place], [place] 5414301-31-2025 14:18-0500 Body iltlbw124.48 cmArthur William PA-C Work Phone: 7(307)149-[address] [place], [place] 5414301-30-2025 11:40-0500 Body kvanbt996.48 cmArthur William PA-C Work Phone: 1(601)237-[address] [place], [place] 5414301-30-2025 11:40-0500 Body tzjhcowjmuk94.6 [degF]Romel William PA-C Work Phone: 1(323)[address]01-30-2025 11:40-0500 Body .3 kgSandeeur William PA-C Work Phone: 6(957)[address]01-30-2025 11:40-0500 Diastolic blood mjznaxqf82 mm[Hg]Romel William PA-C Work Phone: 1(858)[address]67 [address]01-30-2025 11:40-0500 Heart rate77 /minRomel William PA-C Work Phone: 0(623)[address]67 [address]01-30-2025 11:40-0500 Respiratory rate16 /minSandeeur William PA-C Work Phone: 3(119)28367 [address]01-30-2025 11:40-0500 SaO2% (BldA) [Mass fraction]97 %Romel William PA-C Work Phone: 9(282)80767 [address]01-30-2025 11:40-0500 Systolic blood ifswbpsq658 mm[Hg]Romel William PA-C Work Phone: 5(494)[address]167 [address]01-14-2025 14:13-0500 Body ienykd328.9 Hortensia Khan DPM Work Phone: 7(911)181-[address] [place], [place] [address]Bnvlkxhndl22-76-3816 14:13-0500Body mass index (BMI) [Ratio]28.91 kg/h5EvqrxrqMarce Stoneher DPM Work Phone: 6(746)305[facility]25[facility] HospitalItdsrkhdnd22-53-6667 14:13-0500Body qloqyx12.4 kg Marce Khan DPM Work Phone: 7(617)281-58[facility] HospitalJjdtgnjsvf38-89-1358 14:00-0500Body xpbdyt426.94 Kathleen William PA-C Work Phone: 8(191)316-[address] [place], [place] 5414301-10-2025 14:00-0500 Body mass index (BMI) [Ratio]29.7 kg/e6Hbglal William PA-C Work Phone: [facility]01-10-2025 14:00-0500 Body iickza41.32 kgArthur William PA-C Work Phone: [facility]01-10-2025 14:00-0500 Diastolic blood izyrqfic64 mm[Hg]Romel William PA-C Work Phone: [facility]01-10-2025 14:00-0500 Heart rate65 /minArthur William PA-C Work Phone: [facility]01-10-2025 14:00-0500 Respiratory rate12 /minArthur William PA-C Work Phone: [facility]01-10-2025 14:00-0500 Systolic blood ctmtzjad829 mm[Hg]Romel William PA-C Work Phone: [facility]01-02-2025 11:16-0500 Body kdajkl613.9 cmBryce Hendrickson MD Work Phone: [facility]01-02-2025 11:16-0500 Body mass index (BMI) [Ratio]28.91 kg/o0AzkzhmBryce Hendrickson MD Work Phone: [facility]01-02-2025 11:16-0500 Body .4 kgBryce Hendrickson MD Work Phone: [facility]01-02-2025 11:16-0500 Diastolic blood bvoocsah48 mm[Hg]Bryce Hendrickson MD Work Phone: [facility]01-02-2025 11:16-0500 Heart rate76 /minBryce Hendrickson MD Work Phone: [facility]01-02-2025 11:16-0500 Systolic blood rzqczxyq85 mm[Hg]Bryce Hendrickson MD Work Phone: [facility]12-11-2024 14:55-0500 Body avdayn663.94 cmArtjoshuar William PA-C Work Phone: 1(900)399-57[facility]12-11-2024 14:55-0500 Body mass index (BMI) [Ratio]29 kg/b6Njqukz William PA-C Work Phone: 1(699)892-66[facility]12-11-2024 14:55-0500 Body qubebe83.85 kgArthur William PA-C Work Phone: 1(257)[address]12-11-2024 14:55-0500 Diastolic blood yifxcllf81 mm[Hg]Romel William PA-C Work Phone: 1(860)25767 [address]12-11-2024 14:55-0500 Heart rate77 /minArthur William PA-C Work Phone: 1(929)680-[address] [place], [place] 5414312-11-2024 14:55-0500 Respiratory rate12 /minArthur William PA-C Work Phone: 1(787)835-[address] [place], [place] 5414312-11-2024 14:55-0500 Systolic blood bhrgcudf293 mm[Hg]Romel William PA-C Work Phone: 1(711)305-[address] [place], [place] 5414312-08-2024 14:00-0500 Diastolic blood sickxbcq58 mm[Hg]Romel William PA-C Work Phone: 1(290)183-[address] [place], [place] 5414312-08-2024 14:00-0500 Heart rate86 /minArthur William PA-C Work Phone: 1(435)421-[address] [place], [place] 5414312-08-2024 14:00-0500 Respiratory rate20 /minArthur William PA-C Work Phone: 1(014)830-[address] [place], [place] 5414312-08-2024 14:00-0500 SaO2% (BldA) [Mass fraction]99 %Romel William PA-C Work Phone: 1(363)739-[address] [place], [place] 5414312-08-2024 14:00-0500 Systolic blood mm[Hg]Romel William PA-C Work Phone: 1(640)707-[address] [place], [place] 5414312-08-2024 09:00-0500 Body bzxrgwqjgiy39.6 [degF]Romel William PA-C Work Phone: 1(375)[address]12-08-2024 06:44-0500 Body ppdyeo36.4 kgArthur William PA-C Work Phone: 1(321)[address]67 [address]20[address] 19:56-0500 Body ubbhet406.21 cmArthur William PA-C Work Phone: 1(449)73467 [address]12-03-2024 14:25-0500 Body .94 cmArthur William PA-C Work Phone: 1(948)888-[address] [place], [place] 5414312-03-2024 14:25-0500 Body mass index (BMI) [Ratio]28.5 kg/e3Gozpao William PA-C Work Phone: 1(176)91167 [address]12-03-2024 14:25-0500 Body elhxvy46.66 kgArthur William PA-C Work Phone: 1(805)596-[address] [place], [place] 5414312-03-2024 14:25-0500 Diastolic blood dqzwnidf80 mm[Hg]Romel William PA-C Work Phone: 1(969)187-[address] [place], [place] 5414312-03-2024 14:25-0500 Heart rate62 /minArthur William PA-C Work Phone: 1(080)767-[address] [place], [place] 5414312-03-2024 14:25-0500 Respiratory rate12 /minArthur William PA-C Work Phone: 4(347)917-[address] [place], [place] 5414312-03-2024 14:25-0500 Systolic blood wqwbalxv639 mm[Hg]Romel William PA-C Work Phone: 1(947)942-[address] [place], [place] 5414311-06-2024 09:09-0500 Body vmdyyx075.9 Shamir Cope MD Work Phone: [facility] HospitalXkrdbwnsjy17-58-1167 09:09-0500Body mass index (BMI) [Ratio]28.91 kg/q6YcajwfChuck Cope MD Work Phone: [facility]hhvdhuvtp20-45-1173 09:09-0500Body eiamwd62.4 kg Chuck Cope MD Work Phone: [phone]Qttfhzbcqb85-03-2536 09:09-0500Diastolic blood xsyaopgp23 mm[Hg]Chuck Cope MD Work Phone: [facility] HospitalNyxzpmrqjv73-38-2349 09:09-0500Systolic blood zgwixfmo99 mm[Hg]Chuck Cope MD Work Phone: [facility] HospitalRwkiamohur54-09-4751 11:04-0400Body wrbafc830.94 cmDO Sylvester Ball Work Phone: 1(154)[address] [place], [place] 9592610-30-2024 11:04-0400 Body mass index (BMI) [Ratio]28.8 kg/m2DO Sylvester Ball Work Phone: 1([phone])[address] [place], [place] 9592610-30-2024 11:04-0400 Body gwbcyv95.11 kgDO Sylvester Ball Work Phone: 1(335)[address] [place], [place] 9592610-30-2024 11:04-0400 Diastolic blood hzyxwhon10 mm[Hg]DO Sylvester Ball Work Phone: 1([phone])[address] [place], [place] 9592610-30-2024 11:04-0400 Heart rate62 /minDO Sylvester Ball Work Phone: [phone])[address]10-30-2024 11:04-0400 Respiratory rate12 /minDO Sylvester Ball Work Phone: 1(897)[facility] [place], [place] [address]679610-30-2024 11:04-0400 Systolic blood mm[Hg]DO Sylvester Ball Work Phone: 1(093)[address]10-08-2024 13:08-0400 Body vvbynu748.94 cmDO Sylvester Ball Work Phone: 1(658)[address] [place], [place] 9592610-08-2024 13:08-0400 Body mass index (BMI) [Ratio]28.3 kg/m2DO Sylvester Ball Work Phone: [facility]10-08-2024 13:08-0400 Body .03 kgDO Sylvester Ball Work Phone: 1(150)958-45[facility]09-17-2024 13:24-0400 Body .9 [facility] [address] [place], [place] 9545009-17-2024 13:24-0400 Body mass index (BMI) [Ratio]29.66 kg/m2Ely [address] [place] [address] 01-18-2024 13:24-0400Body udtimi33.[address] 01-18-2024 13:24-0400Diastolic blood joyslmsm17 mm[Hg][address]09-17-2024 13:24-0400Systolic blood ivwqwnhr447 mm[Hg][address]08-20-2024 09:40-0400Diastolic blood soocleul51 mm[Hg]DO Sylvester Ball Work Phone: 1(787)791-87[facility]08-20-2024 09:40-0400 Heart rate55 /minDO Sylvester Ball Work Phone: 1(640)023-32[facility]08-20-2024 09:40-0400 SaO2% (BldA) [Mass fraction]99 %DO Sylvester Ball Work Phone: 1(417)721-29[facility]08-20-2024 09:40-0400 Systolic blood mswfkgio061 mm[Hg]DO Sylvester Ball Work Phone: 1(015)082-49[facility]08-20-2024 09:05-0400 Inhaled oxygen flow rate3 L/minDO Sylvester Ball Work Phone: 1(786)759-13[facility]08-20-2024 08:01-0400 Body fhwdqe012.21 cmDO Sylvester Ball Work Phone: 1(409)440-16[facility]08-20-2024 08:01-0400 Body hqkyin17.3 kgDO Sylvester Ball Work Phone: 1(419)[address] [place], [place] 9592608-20-2024 08:01-0400 Respiratory rate16 /minDO Sylvester Ball Work Phone: 1(471)[address] [place], [place] 9592608-12-2024 15:03-0400 Body jqrdyh247.94 cmDO Sylvester Ball Work Phone: 1419)[address] [place], [place] 9592608-12-2024 15:03-0400 Body mass index (BMI) [Ratio]28.8 kg/m2DO Sylvester Ball Work Phone: 1(419)[address] [place], [place] 9592608-12-2024 15:03-0400 Body sgriyo90.11 kgDO Sylvester Ball Work Phone: 1419)[address] [place], [place] 9592608-12-2024 15:03-0400 Diastolic blood qxcraccf91 mm[Hg]DO Sylvester Ball Work Phone: 1(793)[address] [place], [place] 9592608-12-2024 15:03-0400 Heart rate73 /minDO Sylvester Ball Work Phone: 1(419)[address] [place], [place] 9592608-12-2024 15:03-0400 Respiratory rate12 /minDO Sylvester Ball Work Phone: 1(074)[address] [place], [place] 9592608-12-2024 15:03-0400 Systolic blood lpzwfilt56 mm[Hg]DO Sylvester Ball Work Phone: 1(795)[address] [place], [place] 9592607-24-2024 10:50-0400 Body gcuicn458.94 cmDO Sylvester Ball Work Phone: 1(900)[address] [place], [place] 9592607-24-2024 10:50-0400 Body mass index (BMI) [Ratio]29.5 kg/m2DO Sylvester Ball Work Phone: 1419)[address] [place], [place] 9592607-24-2024 10:50-0400 Body faviwt29 kgDO Sylvester Ball Work Phone: 1419)[address] [place], [place] 9592607-01-2024 13:04-0400 Body justlv500.94 cmDO Sylvester Ball Work Phone: 1419)[address] [place], [place] 9592607-01-2024 13:04-0400 Body mass index (BMI) [Ratio]29.6 kg/m2DO Sylvester Ball Work Phone: 1(440)[address]07-01-2024 13:04-0400 Body .21 kgDO Sylvester Ball Work Phone: 1(929)[address] [place], [place] 9592607-01-2024 13:04-0400 Diastolic blood qzorwoom33 mm[Hg]DO Sylvester Ball Work Phone: 1(973)[address]07-01-2024 13:04-0400 Heart rate66 /minDO Sylvester Ball Work Phone: 1(064)[address] [place], [place] 9592607-01-2024 13:04-0400 SaO2% (BldA) [Mass fraction]100 %DO Sylvester Ball Work Phone: 1(833)[address] [place], [place] 9592607-01-2024 13:04-0400 Systolic blood gbqkyjgu752 mm[Hg]DO Sylvester Ball Work Phone: 1(591)[address] [place], [place] 9592606-18-2024 10:10-0400 Body .94 cmDO Sylvester Ball Work Phone: 1(907)[address] [place], [place] 9592606-18-2024 10:10-0400 Body mass index (BMI) [Ratio]29.5 kg/m2DO Sylvester Ball Work Phone: 1(034)[address] [place], [place] 9592606-18-2024 10:10-0400 Body xoprya02.93 kgDO Sylvester Ball Work Phone: 1(364)[address]05-14-2024 15:14-0400 Body oxckex042.94 cmDO Sylvester Ball Work Phone: 1(598)[address]05-14-2024 15:14-0400 Body mass index (BMI) [Ratio]28.7 kg/m2DO Sylvester Ball Work Phone: 1(759)[address]05-14-2024 15:14-0400 Body vhpfde11 kgDO Sylvester Ball Work Phone: 1(315)[address] [place], [place] 9592605-14-2024 15:14-0400 Diastolic blood ieldxyhx97 mm[Hg]DO Sylvester Ball Work Phone: 1(638)311-[address] [place], [place] 0679605-14-2024 15:14-0400 Heart rate65 /minDO Sylvester Ball Work Phone: 1(192)108-[address] [place], [place] 0679605-14-2024 15:14-0400 Respiratory rate12 /minDO Sylvester Ball Work Phone: 1(834)888-[address] [place], [place] 0679605-14-2024 15:14-0400 Systolic blood eprrcciq034 mm[Hg]DO Sylvester Ball Work Phone: 1(212)[address]05-07-2024 08:57-0400 Diastolic blood pcihinhz88 mm[Hg]DO Sylvester Ball Work Phone: 1(692)[address] [place], [place] 9592605-07-2024 08:57-0400 Heart rate64 /minDO Sylvester Ball Work Phone: 1(412)[address] [place], [place] 9592605-07-2024 08:57-0400 Respiratory rate16 /SalenaO Sylvester Ball Work Phone: 1(207)[address] [place], [place] 9592605-07-2024 08:57-0400 SaO2% (BldA) [Mass fraction]98 %DO Sylvester Ball Work Phone: 1(710)[address] [place], [place] 9592605-07-2024 08:57-0400 Systolic blood zxafgqub771 mm[Hg]DO Sylvester Ball Work Phone: 1(304)[address] [place], [place] 9592605-07-2024 08:21-0400 Inhaled oxygen flow rate3 L/SalenaO Sylvester Ball Work Phone: 1(647)[address] [place], [place] 9592605-07-2024 07:26-0400 Body pazvmd022.94 cmDO Sylvester Ball Work Phone: 1(010)[address] [place], [place] 9592605-07-2024 07:26-0400 Body nsoeyc53.21 kgDO Sylvester Ball Work Phone: 1(241)[address] [place], [place] 9592603-19-2024 10:36-0400 Body eeiyuk163.94 [facility]03-19-2024 10:36-0400Body mass index (BMI) [Ratio]29.8 kg/f4XvwxvwmmxK[facility]03-19-2024 10:36-0400Body cwupub24.66 kgK[facility]03-14-2024 10:39-0400Body dbeywl129.9 cmBryce Hendrickson MD Work Phone: [facility]03-14-2024 10:39-0400 Body mass index (BMI) [Ratio]29.66 kg/g7BsbcpsBryce Hendrickson MD Work Phone: [facility]03-14-2024 10:39-0400 Body culezj86.22 kgBryce Hendrickson MD Work Phone: 1(510)196-15[facility]03-14-2024 10:39-0400 Diastolic blood mfmlerbk47 mm[Hg]Bryce Hendrickson MD Work Phone: 2(966)088-79[facility]03-14-2024 10:39-0400 Heart rate64 /minBryce Hendrickson MD Work Phone: [facility]03-14-2024 10:39-0400 Systolic blood qhvkyduu925 mm[Hg]Bryce Hendrickson MD Work Phone: [facility]02-20-2024 13:28-0500 Body vytrsf933.5 cmJacob Mercado MD Work Phone: [facility]02-20-2024 13:28-0500Body temperature 97.59 [degF]Jacob Mercado MD Work Phone: [facility]02-20-2024 13:28-0500Body .6 kgJacob Mercado MD Work Phone: [facility]02-20-2024 13:28-0500Diastolic blood vsebjbvm89 mm[Hg]Jacob Mercado MD Work Phone: [facility]02-20-2024 13:28-0500Heart rate67 /min Jacob Mercado MD Work Phone: [facility]02-20-2024 13:28-0500Respiratory rate 16 /minJacob Mercado MD Work Phone: [facility]02-20-2024 13:28-0456EhN1% (BldA) [Mass fraction]96 %Jacob Mercado MD Work Phone: [facility]02-20-2024 13:28-0500Systolic blood ulhjbwss772 mm[Hg]Jacob Mercado MD Work Phone: [facility]02-19-2024 10:54-0500Body orqden708.94 cmDO intelloCut Work Phone: [facility]02-19-2024 10:54-0500 Body mass index (BMI) [Ratio]29.5 kg/m2DO intelloCut Work Phone: [facility]02-19-2024 10:54-0500 Body zuqpvn12.93 kgDO intelloCut Work Phone: [facility]01-24-2024 10:40-0500 Body .94 cmJeflakitoica [employer] Other [facility]01-24-2024 10:40-0500 Body mass index (BMI) [Ratio]30.04 kg/n9Wznlauo [employer] Other [employer] [place] Other [phone] 10:40-0500Body enxufv37.12 kgJessica [employer] Other [facility]12-28-2023 14:00-0500 Body sxebsy920.94 cmBenjaSSEV Other [facility]12-28-2023 14:00-0500 Body mass index (BMI) [Ratio]30.15 kg/m2Twypnhby [employer] Other [place] Other [id number] 14:00-0500Body gbzlir46.39 kgBenjaSSEV Other [facility]12-28-2023 14:00-0500 Diastolic blood mm[Hg]Sylvester Ball Other [facility]12-28-2023 14:00-0500 Systolic blood wxgwsejr038 mm[Hg]Sylvester Ball Other [facility]12-26-2023 11:00-0500 Body jvemzg901.94 cmDale Moreau Other [facility]12-26-2023 11:00-0500 Body mass index (BMI) [Ratio]29.66 kg/m2Dale Moreau Other [employer] Other 12-26-2023 11:00-0500Body jpanso38.22 kgDale Moreau Other [facility] [place] Other 12-26-2023 11:00-0500Body gseaem74.21 kgDO Sylvester Ball Work Phone: 1(766)351-54[facility]12-19-2023 11:34-0500 Diastolic blood wdsjugkk54 mm[Hg]DO Sylvester Ball Work Phone: 1(854)412-50[facility]12-19-2023 11:34-0500 Systolic blood bpjoidec665 mm[Hg]DO Sylvester Ball Work Phone: 1(254)437-56[facility]12-19-2023 06:13-0500 Body qykxztxylse74.4 [degF]DO Sylvester Ball Work Phone: 1(606)894-65[facility]12-19-2023 06:13-0500 Body azxmdg75 kgDO Sylvester Ball Work Phone: 1(942)920-83[facility]12-19-2023 06:13-0500 Heart rate84 /minDO Sylvester Ball Work Phone: 1(432)055-16[facility]12-19-2023 06:13-0500 Respiratory rate18 /minDO Sylvester Ball Work Phone: 1(842)736-11[facility]12-19-2023 06:13-0500 SaO2% (BldA) [Mass fraction]99 %DO Sylvester Ball Work Phone: 1(891)478-[address] [place], [place] 0679612-15-2023 08:45-0500 Body cnfyzc076.94 cmDO Sylvester Ball Work Phone: 1(896)[address] [place], [place] 9592612-14-2023 11:35-0500 Body roqiclmtnkz08.7 [degF]DO Sylvester Ball Work Phone: 1(195)[address] [place], [place] 9592612-14-2023 11:35-0500 Diastolic blood zdzjqsdo30 mm[Hg]DO Sylvester Ball Work Phone: 1(452)03[address]12-14-2023 11:35-0500 Heart rate71 /minDO Sylvester Ball Work Phone: 1(007)[address] [place], [place] 9592612-14-2023 11:35-0500 Respiratory rate12 /minDO Sylvester Ball Work Phone: 1(484)[address] [place], [place] 9592612-14-2023 11:35-0500 SaO2% (BldA) [Mass fraction]100 %DO Sylvester Ball Work Phone: 1(103)[address] [place], [place] 9592612-14-2023 11:35-0500 Systolic blood xvfamwxw35 mm[Hg]DO Sylvester Ball Work Phone: 1(001)[address] [place], [place] 9592612-14-2023 06:00-0500 Body rihrak38 kgDO Sylvester Ball Work Phone: 1(999)[address] [place], [place] 9592612-12-2023 10:50-0500 Inhaled oxygen flow rate2 L/minDO Sylvester Ball Work Phone: 1(216)[address] [place], [place] 9592612-12-2023 06:58-0500 Body xyrynz689.21 cmDO Sylvester Ball Work Phone: 1(447)[address] [place], [place] 9592612-12-2023 06:58-0500 Body mass index (BMI) [Ratio]28.8 kg/m2DO Sylvester Ball Work Phone: 1(614)[address] [place], [place] 9592612-08-2023 07:17-0500 Body ourbei355.21 cmDO Sylvester Ball Work Phone: 1(991)[address] [place], [place] 9592612-08-2023 07:17-0500 Body mass index (BMI) [Ratio]28.7 kg/m2DO Sylvester Ball Work Phone: 1(051)845-12[facility]12-08-2023 07:17-0500 Body vgqzah84 kgDO Sylvester Ball Work Phone: 1(070)579-[address] [place], [place] 0679612-08-2023 05:55-0500 Body igimfjljpaj23.6 [degF]DO Sylvester Ball Work Phone: 1(695)756-[address] [place], [place] 0679612-08-2023 05:55-0500 Diastolic blood topvldhf52 mm[Hg]DO Sylvester Ball Work Phone: 1(266)[address]12-08-2023 05:55-0500 Heart rate63 /minDO Sylvester Ball Work Phone: 1(264)296-[address] [place], [place] 0679612-08-2023 05:55-0500 Respiratory rate18 /minDO Sylvester Ball Work Phone: 1(098)062-[address] [place], [place] 0679612-08-2023 05:55-0500 SaO2% (BldA) [Mass fraction]100 %DO Sylvester Ball Work Phone: 1(800)969-[address] [place], [place] 0679612-08-2023 05:55-0500 Systolic blood nrobhxvb164 mm[Hg]DO Sylvester Ball Work Phone: 1(972)093-53[facility]11-16-2023 10:58-0500 Body auokjs820.9 cmBryce Hendrickson MD Work Phone: [facility]11-16-2023 10:58-0500 Body mass index (BMI) [Ratio]29.48 kg/q3IscwscBryce Hendrickson MD Work Phone: [facility]11-16-2023 10:58-0500 Body rbdqdo67.76 kgBryce Hendrickson MD Work Phone: [facility]11-16-2023 10:58-0500 Diastolic blood fgfiglyf14 mm[Hg]Bryce Hendrickson MD Work Phone: 0(046)061-[address] [place], [place] 7384211-16-2023 10:58-0500 Heart rate62 /minBryce Hendrickson MD Work Phone: [facility]11-16-2023 10:58-0500 Systolic blood mm[Hg]Bryce Hendrickson MD Work Phone: [facility]11-08-2023 11:00-0500 Body .94 cmRadha Moreau Other [employer] [place] Other 11-08-2023 11:00-0500Body mass index (BMI) [Ratio] 29.21 kg/v4Yboxwb Lizzeth [facility] 11-08-2023 11:00-0500Body febcww33.13 kgRadha Lizzeth Other [place] Other 11-08-2023 11:00-0500Diastolic blood hchbfvda01 mm[Hg] Radha [facility]au [facility] 11-08-2023 11:00-0500Systolic blood bzifmmot633 mm[Hg] Radha [facility]au [facility] 10-31-2023 10:00-0400Body jzensx578.5 cmBryce Hendrickson MD Work Phone: [facility]10-31-2023 10:00-0400 Body mass index (BMI) [Ratio]28.35 kg/o9YkjfpvBryce Hendrickson MD Work Phone: [facility]10-31-2023 10:00-0400 Body .31 kgBryce Hendrickson MD Work Phone: [facility]10-31-2023 10:00-0400 Diastolic blood kkxigkmv92 mm[Hg]Bryce Hendrickson MD Work Phone: [facility]10-31-2023 10:00-0400 Heart rate68 /Aleena Hendrickson MD Work Phone: [facility]10-31-2023 10:00-0400 Systolic blood znkzjuxy392 mm[Hg]Bryce Hendrickson MD Work Phone: [facility]10-26-2023 10:20-0400 Body ilkmrq230.94 cmDalela Moreau Other [employer] Other 10-26-2023 10:20-0400Body mass index (BMI) [Ratio] 29.66 kg/m2Dale Moreau Other [employer] Other 10-26-2023 10:20-0400Body cuhwyz14.22 kgDalela Moreau Other [employer] Other 09-21-2023 09:20-0400Body spijrd831.94 cmDale Moreau Other [employer] Other 09-21-2023 09:20-0400Body mass index (BMI) [Ratio] 29.09 kg/m2Dalela Moreau Other [employer] Other 09-21-2023 09:20-0400Body zpcoev06.85 kgDale Moreau Other [employer] Other 09-21-2023 09:20-0400Diastolic blood viheurpb70 mm[Hg] Devin Moreau Other [employer] Other 09-21-2023 09:20-0400Systolic blood tjdeqihs078 mm[Hg] Devin Moreau Other [employer] Other 09-07-2023 08:45-0400Body kwnoic310.94 cmBenjamin Ball Other [employer] Other 09-07-2023 08:45-0400Body mass index (BMI) [Ratio] 29.51 kg/r3Ccuknhlb Ball Other [employer] Other 09-07-2023 08:45-0400Body dlicrs26.85 kgBenjamin Ball Other [employer] Other 09-07-2023 08:45-0400Diastolic blood zslsaewn27 mm[Hg] Sylvester Ball Other [employer] Other 09-07-2023 08:45-0400Respiratory rate12 /minBenjamin Ball Other [employer] Other 09-07-2023 08:45-0400Systolic blood qbrfakvb107 mm[Hg] Sylvester Ball Other [employer] Other 03-16-2023 11:30-0400Body grluyy442.94 cmBenjamin Ball Other [employer] Other 03-16-2023 11:30-0400Body mass index (BMI) [Ratio] 28.04 kg/q2Jgjpxpsb Ball Other [employer] Other 03-16-2023 11:30-0400Body .31 kgBenjamin Ball Other [employer] Other 03-16-2023 11:30-0400Diastolic blood mm[Hg] Sylvester Ball Other [employer] Other 03-16-2023 11:30-0400Respiratory rate12 /minBenhaseeb Jacob Other [employer] [place] Other 03-16-2023 11:30-0400Systolic blood gloiyqna890 mm[Hg] Sylvester Jacob Other [employer] [place] Other 02-21-2023 14:40-0500Body pgpumt159.94 cmDale Moreau Other [employer] [place] Other 02-21-2023 14:40-0500Body mass index (BMI) [Ratio] 31.36 kg/m2Dalela Moreau Other [employer] [place] Other 02-21-2023 14:40-0500Body ewrvao77.3 kgDale Lizzeth Other [employer] [place] Other 02-08-2023 12:00-480143 1Benhsaeeb Rosenthal Nidia Work Phone: 1(894) [phone] Work Phone: Comment on above:[id number] 13:19-0500Body .5 cmJacob Mercado MD Work Phone: [facility]01-17-2023 13:19-0500Body temperature 97.39 [degF]Jacob Mercado MD Work Phone: [facility]01-17-2023 13:19-0500Body epphcz07.22 kgJacob Mercado MD Work Phone: [facility]01-17-2023 13:19-0500Diastolic blood mm[Hg]Jacob Mercado MD Work Phone: [facility]01-17-2023 13:19-0500Heart rate66 /min Jacob Mercado MD Work Phone: [facility]01-17-2023 13:19-0500Respiratory rate 18 /minJacob Mercado MD Work Phone: [facility]01-17-2023 13:19-5126FvN2% (BldA) [Mass fraction]97 %Jacob Mercado MD Work Phone: [facility]01-17-2023 13:19-0500Systolic blood wpmohfnu636 mm[Hg]Jacob Mercado MD Work Phone: [facility]01-12-2023 14:20-0500Body xalcfm395.94 cmIBS [employer] Other [employer] Other 01-12-2023 14:20-0500Body mass index (BMI) [Ratio] 31.36 kg/m6Wqmmtqi [employer] Other [employer] Other 01-12-2023 14:20-0500Body amdfwd74.3 kgJessica [employer] Other [employer] Other 01-10-2023 11:27-0500Body zlusah749.94 cmBenjamin E Ball Work Phone: [phone]-Njtod [place] [employer] DO Work Phone: 1(330) 936-564001-10-2023 11:27-0500Body mass index (BMI) [Ratio] 29.67 kg/r7Syrjwdqz E Ball Work Phone: [phone]-Jiujs [place] DO Work Phone: 1(974) 676-893101-10-2023 11:27-0500Body surface area Derived from formula1.7 y1Zctntuxi E Ball Work Phone: [phone]-Znvia [place] DO Work Phone: 1(656) 734-322001-10-2023 11:27-0500Body dkxbni11.22 kgBenjamin E Ball Work Phone: [id number]-Ihvbl [facility] 250 DO Work Phone: 1(905) 300-452101-10-2023 11:27-0500Diastolic blood looghamo91 mm[Hg] Sylvester E Ball Work Phone: [phone]-QnvcnM[facility]acs [facility] 250 DO Work Phone: 1(163) 748-844001-10-2023 11:27-0500Heart rate72 /minBenjamin E Ball Work Phone: [phone]-Cepcr [place] [facility] Hospital[facility] 250 DO Work Phone: 1(975) 578-740501-10-2023 11:27-0500Systolic blood xweuwimd594 mm[Hg] Sylvester E Ball Work Phone: [phone]-EuucwM [facility] 250 DO Work Phone: 1(427) 770-195511-30-2022 07:54-0500Body hdgpjxppqal77.1 [degF]DO Sylvester Ball Work Phone: 1(480)591-52[facility]11-30-2022 07:54-0500 Diastolic blood skscpmoi27 mm[Hg]DO Sylvester Ball Work Phone: 1(225)631-04[facility]11-30-2022 07:54-0500 Heart rate75 /minDO Sylvester Ball Work Phone: 1(196)430-84[facility]11-30-2022 07:54-0500 Respiratory rate16 /minDO Sylvester Ball Work Phone: 1(140)801-20[facility]11-30-2022 07:54-0500 SaO2% (BldA) [Mass fraction]98 %DO Sylvester Ball Work Phone: 1(878)468-80[facility]11-30-2022 07:54-0500 Systolic blood rgpuzntk459 mm[Hg]DO Sylvester Ball Work Phone: 1(437)746-62[facility]11-30-2022 04:13-0500 Body bgjigr43.8 kgDO Sylvester Ball Work Phone: 1(442)304-44[facility]11-29-2022 00:09-0500 Inhaled oxygen ntthsjbijlgtk45 %DO Sylvester Ball Work Phone: 1(867)021-01[facility]11-28-2022 16:00-0500 Inhaled oxygen flow rate2 L/minDO Sylvester Ball Work Phone: [facility]11-28-2022 08:58-0500 Body qloqya993.21 cmDO Sylvester Ball Work Phone: [facility]11-28-2022 08:58-0500 Body mass index (BMI) [Ratio]29.6 kg/m2DO Sylvester Ball Work Phone: [facility]10-11-2022 08:39-0400 Body psxadd246.94 cmBenjamin E Ball Work Phone: 1(360) [phone]-XouvgRidgeview Medical Centerk 600 DO Work Phone: 1(710)[phone] 08:39-0400Body mass index (BMI) [Ratio] 30.42 kg/t1Ewggszub E Ball Work Phone: 1(475) [phone]-WsaylM [facility] 600 DO Work Phone: 1(267)[phone] 08:39-0400Body surface area Derived from formula1.72 e4Tloaptes E Ball Work Phone: 1(429) [phone]-MkjulM Health [facility] 600 DO Work Phone: 1(629)[phone] 08:39-0400Body etxzwd12.03 kgBenjamin E Ball Work Phone: 1(248) [phone]-PraeoM [facility] 600 DO Work Phone: 1(647)[phone] 08:39-0400Diastolic blood omzqshei96 mm[Hg] Sylvester E Ball Work Phone: 1(390) [phone]-JltqsRidgeview Medical Centerk 600 DO Work Phone: 1(855)[phone] 08:39-0400Heart rate62 /minBenjamin E Ball Work Phone: 1(184) [phone]-JgpfgRidgeview Medical Centerk 600 DO Work Phone: 1(666)[phone] 08:39-0400Systolic blood iipecmhp329 mm[Hg] Sylvester E Ball Work Phone: [phone]-MgmugJackson Medical CenterWalpole 600 DO Work Phone: 1(875) 512-781609-20-2022 12:40-0400Body qyeazw259.94 cmDale Moreau Other [employer] Other 09-20-2022 12:40-0400Body mass index (BMI) [Ratio] 31.36 kg/m2Dale Moreau Other [employer] Other 09-20-2022 12:40-0400Body atyufp84.3 kgDale Moreau Other [employer] Other 08-30-2022 10:00-0400Body hrfarq998.94 cmDale Moreau Other [employer] Other 08-30-2022 10:00-0400Body mass index (BMI) [Ratio] 31.36 kg/m2Dale Moreau Other [employer] Other 08-30-2022 10:00-0400Body ajolve70.3 kgDale Moreau Other [employer] Other 07-05-2022 12:00-0400Body ysugqt575.94 cmDale Moreau Other [employer] Other 07-05-2022 12:00-0400Body mass index (BMI) [Ratio] 31.17 kg/m2Dale Moreau Other [employer] Other 07-05-2022 12:00-0400Body .84 kgDale Moreau Other [employer] Other 06-09-2022 11:59-0400Body laoybixjmxl40.2 [degF]DO Sylvester Jacob Work Phone: 1(006)078-77[facility]06-09-2022 11:59-0400 Diastolic blood ipjbmlok90 mm[Hg]DO Sylvester Ball Work Phone: 1(158)[address]06-09-2022 11:59-0400 Heart rate73 /minDO Sylvester Chart[employer] Work Phone: [phone]06-09-2022 11:59-0400 Respiratory rate13 /minDO Sylvester [employer] Work Phone: [phone] [place], [place] 0679606-09-2022 11:59-0400 SaO2% (BldA) [Mass fraction]99 %DO Sylvester [employer] Work Phone: [phone]06-09-2022 11:59-0400 Systolic blood dtphxgyh427 mm[Hg]DO Sylvester [employer] Work Phone: [phone] [place], [place] [address]592606-09-2022 04:55-0400 Body zcorap83 kgDO Sylvester [employer] Work Phone: [phone]06-08-2022 14:14-0400 Inhaled oxygen flow rate8 L/Gudelia Phan [employer] Work Phone: [phone] [place], [place] [address]592606-08-2022 12:02-0400 Body mass index (BMI) [Ratio]30.8 kg/m2DO Sylvester [employer] Work Phone: [phone]06-08-2022 11:59-0400 Body .02 cmDO Sylvester [employer] Work Phone: [phone] [place], [place] 0679604-07-2022 16:20-0400 Body zojzpz400.94 cmDalela Moreau Other [employer] Other 04-07-2022 16:20-0400Body mass index (BMI) [Ratio] 31.17 kg/m2Dale Lizzeth Other [employer] Other 04-07-2022 16:20-0400Body .84 kgDale Moreau Other [employer] Other Encounters Encounter DateEncounter TypeCare ProviderFacilityStart: 02-19-2025 End: 46-05-3479Miatorvejx hospital visit by physicianEna Ames Echo/Vasc Room 2[facility] HospitalComment on above:Mitral valve insufficiency, unspecified etiology; Left ventricular systolic dysfunctionStart: 02-19-2025 End: [id number] [facility]25 End: 01-69-3262Jqhplc outpatient visit 15 minutesDick PEREZ Work Phone: NOQO Hui OrthopaedicsComment on above:Acute pain of right shoulder (Primary Dx); Rotator cuff arthropathy of right shoulder; Subacromial impingement of right shoulderStart: 02-12-2025 End: 62-28-7434gbugkuhsjaFBUXCYN J MEYERNot AvailableStart: 02-12-2025 End: 06-54-7756Kjxbxf Yves PEREZ Work Phone: noms [facility]ui OrthopaedicsStart: 02-12-2025 End: 98-95-3751Vdmrhaalec PEREZ Work Phone: NOYG Hui OrthopaedicsStart: 01-30-2025 End: 62-53-4572Vqqnmp outpatient visit 25 minutesBryce Hendrickson MD Work Phone: [facility] on above:Mitral valve insufficiency, unspecified etiology (Primary Dx); Left ventricular systolic dysfunction; Essential hypertension; LBBB (left bundle branch block); BMI 28.0-28.9,adult; Never smoked tobacco; Stage 3a chronic kidney disease (Multi)Start: 01-30-2025 End: 49-97-2889cegcxsvqgsJVMRQK [facility] AmbulatoryStart: 01-15-2025 End: 95-57-7122pzfafdicdyGulustti Ball DO Work Phone: [facility] Work Phone: Start: 01-15-2025 End: 85-70-3907Dheqydh encounter procedureBereal Jacob DO-[facility] Work Phone: Start: 01-11-2025 End: 56-17-0124Tdyamif encounter procedureDanyelle Mathews MD-[facility] Work Phone: Start: 01-11-2025 End: 68-88-1810lsfnlgtsswGsrcgidn Ball DO Work Phone: [facility] Work Phone: Start: 39-46-2157Kzg-patient / Non-visitCatherine Wm JOSHI-[facility] Work Phone: Start: 40-75-4605Pps-patient / Non-visitBenhaseeb Jacob DO-[facility] Work Phone: Start: 10-64-4222Ook-patient / Non-visitBenhaseeb Jacob DO-[facility] Work Phone: Start: 14-75-4327Vwm-patient / Non-visitChristian Heriberto Palacios MD-[facility] Work Phone: Start: 60-66-8929Owg-patient / Non-visitChristian Heriberto Palacios MD-[facility] Work Phone: Start: 38-74-4013Qlg-patient / Non-visitMarley Mendieta APRN-[facility] Work Phone: Start: 11-14-2024 End: 42-14-5403Jxwsyvrhmk and management of inpatientSylvester Jacob [facility]: 86-79-4207Hkv-patient / Non-visitGeorge Jayec Juan MD-[facility] Work Phone: Start: 11-02-2024 End: 78-63-1057Nhbojydlof and management of inpatientArpantonio Sosa MD-[address] [place] [address] Critical Care Work Phone: Start: 23-35-7926Hqa-patient / Non-visitSin Martinez MD-[facility] Work Phone: Start: 10-23-2024 End: 73-42-4030Ntdebm Julianna Linda MD Work Phone: noms BM NEUROLOGYStart: 10-23-2024 End: 89-91-3154Cgwjew Julianna Linda MD Work Phone: noms BM NEUROLOGYStart: 10-23-2024 End: 86-45-7133Ncbmsn outpatient new 45 minutesBran Linda MD Work Phone: noms SWS NEURComment on above:Bilateral carpal tunnel syndrome (Primary Dx); Idiopathic progressive neuropathyStart: 10-23-2024 End: 15-17-1534zqvbftjxdkOKUFHIF W BAUERNot AvailableStart: 61-94-4731Fkq- patient / Non-visitSylvester Jacob DO-[facility] Work Phone: Start: 09-29-2024 End: 92-32-4431lmfohbrbgyNdmtjopprSelect Medical [facility]ty [facility] Work Phone: Start: 09-29-2024 End: 82-57-8211Sqehcrm encounter procedureAtrium Health Phys[facility] Work Phone: Start: 09-28-2024 End: 15-62-3004Cilsiw flowsheetSteven A Rusher DPM Work Phone: noms PODIATRYStart: 09-28-2024 End: 49-68-3284Wdusuk flowsheetSteven A Rusher DPM Work Phone: noms PODIATRYStart: 09-28-2024 End: 08-48-6697cscjimicboQWZPEC A RUSHERNot AvailableStart: 09-28-2024 End: 91-95-1302Xcgbjj outpatient visit 25 minutesSteven A Rusher DPM Work Phone: noms PODIATRYComment on above:Osteoarthritis of midtarsal joint of left foot (Primary Dx); Capsulitis of left foot; Pain in joint of left foot; Pain and swelling of toe of left foot; Difficulty walkingStart: 09-28-2024 End: 70-73-1475yhqcrendwrYCHIFI A RUSHERNot AvailableStart: 09-06-2024 End: 81-41-4555Sezgygo encounter procedureSteven A Rusher DPM Work Phone: noms PODIATRYComment on above:Dermatophytosis of nail (Primary Dx); Dystrophic nail; Pain around toenail, right foot; Pain around toenail, left footStart: 09-06-2024 End: 63-93-3709veiswnnysuISQICO A RUSHERNot AvailableStart: 09-06-2024 End: 77-01-9879Kxtvrg flowsheetSteven A Rusher DPM Work Phone: noms PODIATRYStart: 09-06-2024 End: 97-47-7519Wvksoy flowsheetSteven A Rusher DPM Work Phone: noms PODIATRYStart: 54-30-4879Wjt-patient / Non-visitAtrium Health Physician Group-[facility] Work Phone: Start: 09-04-2024 End: 81-40-8882ytwmudtnmaLhsqmkcw Ball DO Work Phone: [facility] Work Phone: Start: 09-04-2024 End: 45-07-6993Pripogb encounter procedureSylvester Jacob DO Work Phone: [facility] Work Phone: Start: 08-21-2024 End: 92-80-5163Oxwsnjj encounter procedureJacob Mercado MD Work Phone: Hematology/OncologyStart: 08-21-2024 End: 87-58-4659elpazibunjZwffk R Murphy MD Work Phone: Hematology/OncologyComment on above:Malignant neoplasm of upper-outer quadrant of left breast in female, estrogen receptor negative (HCC) (Primary Dx)Start: 08-07-2024 End: 85-02-4712MtyivlBtpdz R Murphy MD Work Phone: Hematology/OncologyComment on above:Refill Request Start: 07-24-2024 End: 83-30-6453nahnfkahfqRbshsrzp Nidia DO Work Phone: [facility] Work Phone: Start: 07-24-2024 End: 31-30-5123Lzmsbwi encounter procedureSylvester Nidia DO Work Phone: [facility] Work Phone: Start: 07-03-2024 End: 42-66-2245Ezivvlrim encounterHianna Cope MD Work Phone: NOKU CI ENTComment on above:cancel fu appt for ct scan not doneStart: 07-03-2024 End: 91-78-7285hcwouebmziKwasevHeena William PA-C Work Phone: [facility] Work Phone: Start: 07-03-2024 End: 60-53-9948Ryuxxay encounter procedureRomel William PA-C Work Phone: [facility] Work Phone: Start: 06-29-2024 End: 01-71-4603mnxtivpoikWgsofi J Myers PA-C Work Phone: [facility] Work Phone: Start: 06-29-2024 End: 52-43-3003Hwpubyf encounter procedureRomel William PA-C Work Phone: [facility] Work Phone: Start: 06-29-2024 End: 32-81-1000Zfirusf encounter procedureArthur William PA-C Work Phone: [facility] Start: 06-29-2024 End: 58-29-3529krpydhiojwUpxjej Brian William PA-C Work Phone: [facility] Work Phone: Start: 67-44-3984Xxi-patient / Non-visitArthur William PA-C Work Phone: [facility] Work Phone: Start: 69-69-7270Lzq-patient / Non-visitBenjamin Hiawatha DO Work Phone: [facility] Work Phone: Start: 19-00-3349Qnd-patient / Non-visitArthur William PA-C Work Phone: [facility] Work Phone: Start: 81-24-1525Rfz-patient / Non-visitArthur William PA-C Work Phone: [facility] Work Phone: Start: 78-20-6634Poz-patient / Non-visitArthur William PA-C Work Phone: [facility] Work Phone: Start: 06-01-2024 End: 40-02-7100Sphcyxdstc and management of inpatientArthur William PA-C Work Phone: [facility] Work Phone: Start: 05-29-2024 End: 88-09-7609jzssvnxgjzPKNCTAES D ZAHLERNot AvailableStart: 05-29-2024 End: 46-03-9478Ceijhi flowsheetDarbyholly Encarnacion DO Work Phone: noms OPHTStart: 05-29-2024 End: 45-37-5503Kpuocc flowsheetAllen Palacios Roscoe DO Work Phone: noms OPHTStart: 05-16-2024 End: 44-83-2139Qdbutc outpatient visit 15 minutesAnthony S Rusher DPM Work Phone: noms PODIATRYComment on above:Dermatophytosis of nail (Primary Dx); Dystrophic nail; Pain in both feetStart: 05-16-2024 End: 61-76-2117iqkyxikidwCVNUYBS S RUSHERNot AvailableStart: 05-16-2024 End: 89-55-5418Zbgsgt flowsheetAnthony S Rusher DPM Work Phone: noms PODIATRYStart: 05-16-2024 End: 16-93-4446Mrcsgu flowsheetAnthony S Rusher DPM Work Phone: noms PODIATRYStart: 05-12-2024 End: 57-44-6433pwoxforvwgXwmzhv J Myers PA-C Work Phone: [facility] Work Phone: Start: 05-12-2024 End: 61-36-2027Gzusint encounter procedureRomel William PA-C Work Phone: [facility] Work Phone: Start: 05-04-2024 End: 63-87-6727Roejup outpatient visit 25 minutesBryce Hendrickson MD Work Phone: uh [facility] on above:Mitral valve insufficiency, unspecified etiology (Primary Dx); Left ventricular systolic dysfunction; Essential hypertension; LBBB (left bundle branch block); BMI 28.0-28.9,adult; Stage 3a chronic kidney disease (Multi)Start: 05-04-2024 End: 56-96-6116qigdxyednuMFDWUR M [facility] AmbulatoryStart: 05-92-4405Wxs-patient / Non-visitArthur William PA-C Work Phone: [facility] Work Phone: Start: 04-12-2024 End: 68-11-6286Qpotyvn encounter procedureArthur William PA-C Work Phone: [facility] Work Phone: Start: 40-87-7911Mty-patient / Non-visitArthur William PA-C Work Phone: [facility] Work Phone: Start: 50-50-0992Iwf-patient / Non-visitArthur William PA-C Work Phone: [facility] Work Phone: Start: 73-06-9268Ssl-patient / Non-visitArthur William PA-C Work Phone: [facility] Work Phone: Start: 04-07-2024 End: 80-65-8256Qmlcfoiosj and management of inpatientArthur William PA-C Work Phone: [facility] Work Phone: Start: 04-04-2024 End: 41-66-7162Eljbotj encounter procedureArthur William PA-C Work Phone: [facility] Work Phone: Start: 47-45-4023Rql-patient / Non-visitArthur William PA-C Work Phone: [facility] Work Phone: Start: 03-28-2024 End: 29-48-0439bzrmggwtwqFLGQML H TIMMISNot AvailableStart: 03-28-2024 End: 07-11-9914Uhyxyr outpatient visit 25 minutesHianna Cope MD Work Phone: noms CI ENTComment on above:Chronic frontal sinusitis (Primary Dx)Start: 03-24-2024 End: 04-92-0987Dqjrgzwpm Result EncounterHianna Cope MD Work Phone: noms External Department UnsolicitedStart: 03-24-2024 End: 08-51-5750Yerttroce Result EncounterHianna Cope MD Work Phone: noms External Department UnsolicitedStart: 03-08-2024 End: 02-44-0476Qmutyw flowsheetChuck Cope MD Work Phone: noms CI ENTStart: 03-08-2024 End: 16-67-6156Jjmokz flowsRyder Cope MD Work Phone: noms CI ENTStart: 03-08-2024 End: 25-51-5764Tocjzc outpatient visit 25 minutesHianna Cope MD Work Phone: noms CI ENTComment on above:Chronic sinusitis, unspecified location (Primary Dx)Start: 03-08-2024 End: 95-66-1815bkajfvunjmPNODIR H TIMMISNot AvailableStart: 26-42-4424Hde- patient / Non-visitDO Sylvester Jacob Work Phone: [facility] Work Phone: Start: 03-01-2024 End: 64-89-4607ajjrzahkzrQD Sylvester ChartITright Work Phone: [facility] Work Phone: Start: 03-01-2024 End: 39-27-1269Wmvosjf encounter procedureDO Sylvester Jacob Work Phone: [facility] Work Phone: Start: 02-08-2024 End: 08-53-6665Ozuacoh encounter procedureDO Sylvester Jacob Work Phone: [facility] Work Phone: start: 02-08-2024 End: 88-35-0062eruevwnvhiFX Sylvester Jacob Work Phone: [facility] Work Phone: Start: 01-18-2024 End: 09-57-8946Atrdrucdbo hospital visit by physicianEna [facility] Echo/Vasc Room 2[facility] HospitalComment on above:Mitral valve insufficiency, unspecified etiologyStart: 01-06-2024 End: 48-84-1195Jfotuwear encounterReenoc Mart RN Work Phone: Hematology/OncologyComment on above:Radiology MammogramStart: 01-05-2024 End: 63-05-9491udwnhondiyUX Sylvester Jacob Work Phone: [facility] Work Phone: Start: 01-05-2024 End: 04-77-9696Vjsptkg encounter procedureDO Sylvester Jacob Work Phone: [facility] Work Phone: Start: 20-85-5320Eab-patient / Non-visitDO Sylvester Jacob Work Phone: [facility] Work Phone: Start: 12-21-2023 End: 76-07-2224Yqkxpsrga to same day surgery centerDO Sylvester Jacob Work Phone: [facility] Work Phone: Start: 12-21-2023 End: 09-15-3322euuehrxfqjHY Sylvester Jacob Work Phone: [facility] Work Phone: Start: 12-13-2023 End: 41-50-1499powomhcxalHE Sylvester Jacob Work Phone: [facility] Work Phone: Start: 12-13-2023 End: 78-72-1781Ebgpmzt encounter procedureDO Sylvester Jacob Work Phone: [facility] Work Phone: Start: 11-24-2023 End: 26-29-6717jzgecysiejRN Sylvester Jacob Work Phone: [facility] Work Phone: Start: 11-24-2023 End: 72-28-1411Fchzexq encounter procedureDO Sylvester Jacob Work Phone: [facility] Work Phone: Start: 11-01-2023 End: 46-79-7368vznunfezvtJU Sylvester Jacob Work Phone: [facility] Work Phone: Start: 11-01-2023 End: 63-44-8130Sxrhwpk encounter procedureDO Sylvester Jacob Work Phone: [facility] Work Phone: Start: 10-19-2023 End: 99-68-2826iyajpkrosvTR Sylvester Jacob Work Phone: [facility] Work Phone: Start: 10-19-2023 End: 36-75-6329Jilxthu encounter procedureDO Sylvester Jacob Work Phone: [facility] Work Phone: start: 09-22-2023 End: 15-57-7774dppzdniyxuFV Sylvester Jacob Work Phone: [facility] Work Phone: Start: 09-22-2023 End: 77-36-5999Yygcqft encounter procedureDO Sylvester Jacbo Work Phone: [facility] Work Phone: Start: 13-69-1125Tap-patient / Non-visitDO Sylvester Jacob Work Phone: [facility] Work Phone: Start: 09-14-2023 End: 58-38-7199Bxqckeb encounter procedureDO Sylvester Jacob Work Phone: [facility] Work Phone: Start: 78-75-0128Rbd-patient / Non-visitDO Sylvester Jacob Work Phone: [facility] Work Phone: Start: 09-07-2023 End: 20-73-2889Rczxjuijc to same day surgery centerDO Sylvester Jacob Work Phone: [facility] Work Phone: Start: 09-07-2023 End: 67-16-1169isbttjpslsJG Sylvester Jacob Work Phone: [facility] Work Phone: Start: 08-11-2023 End: 51-79-2370hpehaytfafIRJ [facility] Work Phone: Start: 08-11-2023 End: 80-06-6333Kbjczwt encounter procedureAtrium Health Physician Group-[facility] Work Phone: Start: 84-18-7032Kot-patient / Non-visitFirminneapoliss Physician Group-[facility] Work Phone: Start: 07-20-2023 End: 37-50-8379glooaqnjczTCF [facility] Work Phone: Start: 07-20-2023 End: 86-90-1399Nqomxgq encounter procedureFirsilvinas Physician Group-[facility] Work Phone: start: 07-15-2023 End: 41-03-9198Tldtwh outpatient visit 25 minutesBryce Hendrickson MD Work Phone: uh [facility] HealthComment on above:Mitral valve insufficiency, unspecified etiology; Essential hypertension; Left ventricular systolic dysfunction; BMI 29.0-29.9,adult; Never smoked tobaccoStart: 43-50-6785Clb-patient / Non-visitAtrium Health Physician [facility] Work Phone: Start: 06-22-2023 End: 49-35-7545yakrbxnpzkWgzev R Murphy MD Work Phone: Hematology/OncologyComment on above:Malignant neoplasm of upper-outer quadrant of left breast in female, estrogen receptor negative (HCC) (HCC) (Primary Dx); 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)Start: 06-22-2023 End: 81-26-1551Oaxlvvv encounter procedureJacob Mercado MD Work Phone: SANDUSKYStart: 92-75-9535Awk-patient / Non-visit [facility] Work Phone: Start: 06-21-2023 End: 55-61-8441lubiofdfeyNJ Benjamin Ball Work Phone: [facility] Work Phone: Start: 06-21-2023 End: 17-40-5605Awccvyd encounter procedureDO Sylvester Jacob Work Phone: [facility] Neurosurgery Work Phone: start: 06-08-2023 End: 75-17-7360epnmhayxdlXhkrjmuf Ball Other [employer] [place] Other Start: 1949Sthfcdxme encounterBereal Fischer [facility] ClinicStart: 05-26-2023 End: 31-12-5030hwziuhjeioKcvtgul Springer Other NoCrystal [place] Other start: 75-16-9831Dswwuv follow up visit related to original pxVivi BiggsBaptist Memorial Hospital NeurosurgeryStart: 05-26-2023 End: 25-22-7695Pnppgqb encounter procedureDO Sylvester Jacob Work Phone: [facility] Work Phone: Start: 05-26-2023 End: 60-09-2897Eszjgwd encounter procedureDO Sylvester Jacob Work Phone: [facility]-Start: 05-07-2023 End: 94-47-5480kwmxbaenreOdulhyej Ball Other noCozy Queen Other Start: 47-22-6760Djbyjm outpatient visit 15 minutes Sylvester StringerG [facility] ClinicStart: 42-11-5875Inzktof encounter procedure DO Sylvester Jacob Work Phone: [facility]-Start: 04-29-2023 End: 29-70-7115edbmlqmwmiRrffbixw Ball Other [employer] [place] Other Start: 26-99-1768Garhmw outpatient visit 25 minutes Sylvester StringerG [facility] ClinicStart: 20-26-1827Jdckhiwgi encounterBenjakaroline StringerG [facility] ClinicStart: 04-29-2023 End: 33-50-2098Urfkifw encounter procedureDO Sylvester Jacob Work Phone: [facility] Work Phone: Start: 04-27-2023 End: 17-98-0751kdvrupjsirMfsl Moreau Other [employer] [place] Other start: 24-84-8829Yoyccy follow up visit related to original pxDale [facility] NeurosurgeryStart: 04-27-2023 End: 79-87-7347Uycqepw encounter procedureDO Sylvester Jacob Work Phone: [facility] Work Phone: start: 04-23-2023 End: 10-28-3803nbzsnyqqrlGblwtdau Ball Other noCozy Queen Other Start: 59-35-6892Rgayateol encounterBenjamin SiomaraG [facility] ClinicStart: 07-77-2736lpurdhnpcpBUIRJAO PROVIDER [facility]Start: 04-15-2023 End: 51-01-7502Ncpzvadnln and management of inpatientDO Sylvester Jacob Work Phone: [facility] Work Phone: Start: 04-13-2023 End: 69-27-8580Miutstqvv to same day surgery centerDO Sylvester Jacob Work Phone: [facility]Start: 04-09-2023 End: 75-73-1493Jpsktsvva to same day surgery centerDO Sylvester Jacob Work Phone: [facility] HospitalStart: 04-09-2023 End: 17-23-6648hdyyhieyiaIN Sylvester Jacob Work Phone: [facility] Work Phone: Start: 03-26-2023 End: 50-12-2280Dzrusav encounter procedureDO Sylvester Jacob Work Phone: [facility]-Pre-Surgical Testing Work Phone: Start: 03-23-2023 End: 39-33-3750ygbbxacreaZsbebxic Ball Other [employer]C[place] Other Start: 57-39-8199Ohajyksfx encounterBenjamin BallJUAN CARLOSG [facility] ClinicStart: 03-18-2023 End: 43-58-5114mqhipthicqGzjtgs Braun Other noCozy Queen Other Start: 85-22-2452Uchibsrii encounterMarcia BraunFPG [facility] ClinicStart: 03-18-2023 End: 71-66-5870Daqxrx outpatient visit 25 minutesBryce Hendrickson MD Work Phone: [facility] HospitalComment on above:Mitral valve insufficiency, unspecified etiology (Primary Dx); Essential hypertension; Overweight with body mass index (BMI) of 29 to 29.9 in adult; Edema, unspecified type; Left ventricular systolic dysfunctionStart: 83-32-2046Qmtctvamz for gynecological examination (general) (routine) without abnormal findingsMarmartín Mariel [facility] Medical ClinicStart: 03-62-1921Ekrmzl outpatient visit 25 minutes Radha [facility] ClinicStart: 55-09-8942Puoftiocm encounterDale LizzethBaptist Memorial Hospital NeurosurgeryStart: 03-10-2023 End: 99-52-9147omobuntnanAKEagle Jacob Work Phone: noCozy Queen Other start: 03-10-2023 End: 42-28-0801Bnnjqptg ReferredDO Sylvester Jacob Work Phone: [facility] [place] Work Phone: Start: 03-05-2023 End: 88-11-1630qxwemamdibIhkcekiv Ball Other noCozy Queen Other Start: 90-05-2091Epcmmbtry encounterBenhaseeb [facility] Medical ClinicStart: 03-04-2023 End: 51-64-4537xtjswklsgjFjpjofiy Ball Other [employer] Other Start: 55-41-8985Wsqhkcidv encounterBenhaseeb [facility] Medical ClinicStart: 03-02-2023 End: 70-09-8262Snbfwu outpatient visit 25 minutesBryce Hendrickson MD Work Phone: [facility] AdministrationComment on above:Mitral valve insufficiency, unspecified etiology; Essential hypertension; Edema, unspecified type; LBBB (left bundle branch block)Start: 03-01-2023 End: 51-44-8596xryviqvygsDnjpvkge Ball Other [employer] Other Start: 39-83-5740Zoegfuzqj encounterBenhaseeb StringerG [facility] ClinicStart: 02-25-2023 End: 72-06-8639ezvqmnsqbjWxgi [place] Other [place] Other start: 75-12-6527Yytwhl outpatient visit 40 minutes Devin MoreauBaptist Memorial Hospital NeurosurgeryStart: 02-22-2023 End: 84-12-4876jeypzqxaunJbxzfkeq Ball Other [employer] [place] Other Start: 42-53-3029Vwsfyeo evaluation of patient and reportBereal StringerG [facility] ClinicStart: 52-19-6106Jigjaaqua encounter Sylvester SiomaraG [facility] ClinicStart: 02-15-2023 End: 02-28-9563bmiwqbnjzpQO Sylvester Jacob Work Phone: [facility] Work Phone: Start: 02-15-2023 End: 84-43-8166Xtyzssc encounter procedureDO Sylvester Jacob Work Phone: [facility]-MRI [facility] [place] Work Phone: Start: 02-09-2023 End: 48-34-0808jdtshgdbndWnzdjdcp Ball Other [place] [place] Other Start: 52-05-2045Qrkecorzs encounterBenhaseeb StringerG [facility] ClinicStart: 02-01-2023 End: 44-37-9241icsaaprppgZqmt Moreau Other [employer]Crystal [place] Other start: 10-66-0673Kkfbrhgot encounterDale Mariel [facility] ClinicStart: 01-28-2023 End: 70-73-4236zxsfjzypaeBP Sylvester Jacob Work Phone: [facility] Work Phone: Start: 01-28-2023 End: 06-29-9857Lzadyjs encounter procedureDO Sylvester Jacob Work Phone: [facility] Work Phone: Start: 28-52-2372bchswgiaiqZq. Sylvester Jacob Facility:[id number]: 01-21-2023 End: 38-69-4948riyecnjdyyFqro Moreau Other [place] Other start: 54-91-4287Xsrein outpatient visit 15 minutes Devin MoreauBaptist Memorial Hospital NeurosurgeryStart: 01-07-2023 End: 84-16-1992jetezpygksDjaaarde Ball Other [employer]Cozy Queen Other Start: 82-19-2169Kwqetaa encounter procedureBenjamin BallFPG [facility] ClinicStart: 01-05-2023 End: 13-20-4790uwkfhnnxagEwdtxqas Ball Other [employer]Cozy Queen Other Start: 34-16-9099Zetyopcha encounterBenjamin BallFPG [facility] ClinicStart: 10-21-2022 End: 99-12-9186hhuqmywyhxCrrqvwes Ball Other [employer]Cozy Queen Other Start: 32-72-5077Ldpesgdwn encounterBenjamin BallFPG [facility] ClinicStart: 09-03-2022 End: 37-68-0828hlievxjkuqYT SYLVESTER BALLFacility:F0Tcbdh: 08-18-2022 End: 28-07-5652vviubjhbkvTY SYLVESTER BALLFacility:E9Xwnka: 08-14-2022 End: 45-35-0773xfwqhlmninOqthauea Ball Other [employer] Other Start: 51-18-8796Upcxhbgae encounterBenhaseeb [facility] Medical ClinicStart: 08-04-2022 End: 29-77-8113lbyspqczppYxnzzctw Ball Other [employer] Other Start: 29-97-2355Qofirmhzu encounterBenhaseeb Jacob Medical ClinicStart: 07-16-2022 End: 80-39-9989szxjkcemedVyevqfez Ball Other [place] Other Start: 64-27-2905Iidtmx outpatient visit 15 minutes [facility] ClinicStart: 06-23-2022 End: 05-84-0802nuwudlknuzXuzi Braun Other noCrystal IS [place] Other start: 24-22-4193Fqppdm follow up visit related to original pxDalela BraunBaptist Memorial Hospital NeurosurgeryStart: 04-52-5146Yrjqf Update Sylvester Jacob Work Phone: [phone]-Ytrpw [facility] 250 DO Work Phone: Start: 42-32-7053Leqdctf encounter procedureBereal Jacob Work Phone: [phone]-Gzfcg [facility] Work Phone: Start: 80-76-3470rfcnnirghgCvRadha Phan Sampson Jacob Facility:[id number]: 05-22-2022 End: 27-03-8337cjfgdkwsyiJaunpczh Ball Other [facility] [place] Other Start: 91-27-3219Ihnfbsi evaluation of patient and reportSylvester Jacob Medical ClinicStart: 05-19-2022 End: 06-73-2024xyedlxlgsmGbvjl R Murphy MD Work Phone: Hematology/OncologyComment on above:Malignant neoplasm of upper-outer quadrant of left breast in female, estrogen receptor negative (HCC) (Primary Dx)Start: 05-19-2022 End: 56-78-5499Kngcejj encounter procedureJacob Mercado MD Work Phone: SANDUSKYStart: 05-14-2022 End: 87-61-7715fuvxurznapKzoibgp Springer Other [place] Other start: 87-51-4798Xmuvbi follow up visit related to original pxJessica [facility] [place] NeurosurgeryStart: 26-08-0288Ktpjys outpatient visit 25 minutesBenhaseeb Rosenthal Ball Work Phone: [phone]-KfxvoFairmont [facility] 250 DO Work Phone: Start: 05-12-2022 End: 48-55-0981lgjoexplwiSthhvvan Edward BallFacility:[id number]: 05-12-2022 End: 59-92-6834Wyedadt encounter procedureDO Sylvester Jacob Work Phone: [facility] Work Phone: Start: 05-11-2022 End: 43-58-9466hvsdfpjlazTD BENJAMIN BALLFacility:L9Sznxe: 05-07-2022 End: 67-95-0506gmhkaqxzfmBnkddxdn Ball Other [place] Other Start: 15-73-9667Yzekgtvqa encounterBenhaseeb JacobWalter E. Fern[facility] SanduskyStart: 38-05-2274EtjjymWkvdx R Murphy MD Work Phone: Hematology/OncologyComment on above:Refill Request Start: 04-14-2022 End: 49-54-7741gcuacdhjxmZydy Braun Other [employer] Other start: 78-88-2390Vlzusg follow up visit related to original pxDale [facility] NeurosurgeryStart: 04-11-2022 End: 97-15-5824kmocwnzdowFO YOSHI SANTIAGOFacility:K2Ytmdi: 03-30-2022 End: 30-24-5025Wgeinloic to same day surgery centerCleveland Clinic [facility] CtrStart: 03-30-2022 End: 62-39-7063ubcvdwyelsOM Sylvester Jacob Work Phone: [place] [place] Other start: 03-27-2022 End: 09-09-6033Snlwszo encounter procedureDO Sylvester Jacob Work Phone: [facility] Azx-Ckk-Jfxbgpsa Testing Start: 03-16-2022(DME) DMECleveland Clinic [facility] CtrStart: 03-16-2022 End: 85-62-0957lvifrlmrjhWG Sylvester Jacob Work Phone: [facility] Ctr Work Phone: Start: 03-16-2022 End: 71-27-1859Goykevs encounter procedureDO Sylvester Jacob Work Phone: [facility] Yus-Nww-Vgnakcsn Testing Start: 98-71-5586Ggkmze outpatient visit 25 minutesBenaranzakaroline Rosenthal Ball Work Phone: [phone]-Hqkkk [facility] 600 DO Work Phone: Start: 66-51-5510lsavlkcfudRqkuzdqv Sampson ChartITright Facility:[id number]: 02-09-2022(Procedure) ShortThomas FelterErie [facility] Surgery CenterStart: 02-09-2022 End: 64-45-8982agjwkdipmuUypzqm Felter Other [employer] Other Start: 02-05-2022 End: 22-29-0097kmpqphokhvWJ EVELIN Collado WESTFacility:Y2Myfmf: 01-26-2022 End: 03-40-1314gapjdnhybhJkhrku Felter Other noCrystal IS [place] Other Start: 81-62-6108Gftcsjbai encounterThomas FelterFPG [place] OrthopedicsStart: 01-20-2022 End: 52-96-7518rqzdmidlixHbsz Braun Other noCozy Queen Other start: 88-61-1551Yxcebm outpatient visit [address] [facility] NeurosurgeryStart: 69-67-5925Kuzax health examination Sylvester Jacob Other [employer] Other Start: 01-09-2022 End: 21-11-6935oydytdvkwxFD TAMY Karuna MCDANIELERFacility:D2Tvilp: 12-30-2021 End: 54-28-2837wwqwzajwrjPgus Braun Other [employer] Other start: 36-99-2858Ubqkye follow up visit related to original pxDale [facility] NeurosurgeryStart: 12-29-2021 End: 32-88-0980Eijxtfc encounter procedureDO Sylvester Jacob Work Phone: [facility]-XRay Main CampusStart: 11-04-2021 End: 19-57-8793fnxptuzarwNkyu Braun Other noCozy Queen Other start: 69-77-9354Jivvbp follow up visit related to original pxDale [facility] NeurosurgeryStart: 10-08-2021 End: 23-57-0560Akykepuyw to same day surgery centerDO Sylvester Jacob Work Phone: [facility] Main CampusStart: 10-08-2021 End: 61-37-9609jnqhjaxubqHqkv Braun Other noCozy Queen Other start: 10-06-2021 End: 33-46-7652Qglqrep encounter procedureDO Sylvester View Medical Phone: [facility]-Pre-Surgical Testing Start: 09-24-2021 End: 43-75-0751Obmmttb encounter procedureDO Sylvester Jacob Work Phone: [facility] Guc-Uuq-Ykurszxu Testing Start: 08-07-2021 End: 88-63-0818ppgibwuanvJopz Lizzeth Other NoCrystal IS [place] Other start: 18-27-0587Wvbwfs outpatient visit 40 minutes Devin MoreauBaptist Memorial Hospital NeurosurgeryStart: 07-08-2021 End: 91-13-1775Hatfddb encounter procedureDO Sylvester Jacob Work Phone: [facility] Ctr-XRay Main CampusStart: 31-47-6104Nfd-procedure evaluation checkSylvester Jacob Other NoCrystal IS [place] Other Start: 94-85-1167Eepesxe encounterBRYCE HENDRICKSON Facility:[id number] Procedures DateProcedureProcedure DetailPerforming ClinicianStart: 42-56-2738Uokx transthorc r-t 2d w/wo m-mode rec f-up/lmtNikolas Hendrickson MD Work Phone: Start: 73-92-2211Eclso shoulder complete minimum 2 viewsMattsolw Brian PEREZ Work Phone: Start: 34-10-6153Hnkwcgpcleslie SosaComment on above:Order Comment: Transfuse now? Y Number of units to transfuse now? 1Result Comment: PERFORMED BY:[place] [address] [place], [place] [phone] MEDICAL JACKELYN VÁZQUEZ M.D.Start: 84-97-1073Tgmzmvwrleslie Turpin on above:Order Comment: Transfuse now? Y Number of units to transfuse now? 2Result Comment: PERFORMED BY:[place] [address] [place] [phone] MEDICAL DIRECTORCARLOS VÁZQUEZ M.D.Start: 81-67-0361Eggeqwziw for occult blood in fecesBenjamin Ball DO Work Phone: Start: 40-75-1663Qpwqg chest X-rayBenjamin Ball DO Work Phone: Start: 91-74-5354SL of abdomen and pelvis without contrastBenjamin Ball DO Work Phone: Start: 46-81-9517DF of head without contrastBenjamin Ball DO Work Phone: Start: 15-41-1220Sslaf foot complete minimum 3 views Tamy Khan DPM Work Phone: Start: 73-44-7314Wzapa radiography of pelvisArthur William PA-C Work Phone: Start: 07-77-2493A-ray of left knee, three viewsArthur William PA-C Work Phone: Start: 82-53-1849Kteeoixzhkmsstt of bilateral kidneys Romel William PA-C Work Phone: Start: 24-92-9891KJ cervical spine without contrast Romel William PA-C Work Phone: Start: 82-74-0645RW of head without contrastArthur William PA-C Work Phone: Start: 02-74-7685Qdvda X-ray of bilateral tibia and bilateral fibulaArthur William PA-C Work Phone: Start: 53-86-5677X-ray of left knee, two viewsArthur William PA-C Work Phone: Start: 23-25-3585Ioyuomgebeig ophthalmic imaging optic nerveAllen Encarnacion DO Work Phone: Start: 05-29-2024 End: 74-36-9297Jgtxr medical xm&eval comprhnsv estab pt 1/>Primary open angle glaucoma (POAG) of both eyes, mild stage (CMS/HCC)Allen Encarnacion DO Work Phone: comment on above:Primary open angle glaucoma (POAG) of both eyes, mild stage (CMS/HCC) (Primary Dx); PCO (posterior capsular opacification), bilateral; Keratoconjunctivitis sicca of both eyes not specified as Sjogren'sStart: 37-56-6718HU of head without contrastArthur Sagebin Work Phone: Start: 28-60-6958Sigsz chest X-rayArthur Sagebin Work Phone: Start: 35-17-8891Ecifo sinuses paranasal compl minimum 3 viewsHilary Celia Cope MD Work Phone: Start: 39-98-0778K-ray of lumbar spine, two or three viewsDO [employer]Cut Work Phone: Start: 36-13-9748Mcywoyfac of local anesthetic into sacroiliac jointDO [employer] Work Phone: Start: 99-61-0155L-ray of lumbar spine, two or three viewsDO [employer] Work Phone: Start: 57-42-6772Aojcybqhn of local anesthetic into sacroiliac jointDO [employer] Phone: Start: 49-08-2157T-ray of lumbar spine, two or three viewsStart: 94-00-0701I-ray of lumbar spine, two or three viewsDO [employer] Phone: start: 16-79-0747YQ Lumbar Laminectomy w/Fix Implants (Not Applicable)DO [employer] Work Phone: Start: 59-30-7157K-ray of lumbar spine, two or three viewsDO [employer] Phone: Start: 29-45-4803ABP of lumbar spine with contrastDO [employer] Phone: Start: 49-13-6158J-ray of lumbar spine, six views including bending viewsDO [employer] Phone: Start: 20-94-7669Dkrs energy X-ray absorptiometryDO [employer] Phone: Start: 28-78-9260G-ray of lumbar spine, four viewsDO [employer] Phone: Start: 17-33-1663OY Lumbar Laminectomy w/Fix Implants (Not Applicable)DO [employer] Work Phone: Start: 74-14-7384K-ray of lumbar spine, two or three viewsDO [employer] Work Phone: Start: 18-98-2547JBTT Antigen (LFIA)DO [employer] Work Phone: Start: 00-91-8488S-ray of lumbar spine, four viewsDO [employer] Phone: Start: 89-14-1309Jnonhsoz of lumbar intervertebral discDO [employer] Phone: Start: 70-59-0236P-ray of lumbar spine, single viewDO [employer] Phone: Start: 05-60-9005V-ray of lumbar spine, six views including bending viewsDO [employer] Phone: Start: 04-39-0243Ibfhugdc screenComment on above: Performed By: #### [id number] ####[address] [id number]: 74-03-3463Oqytmhipg for malignant neoplasm of colon intelloCut Other Start: 66-65-5285Cwvemmxavvbv cardiovascular examinationBenFin Quiver Other AppendectomyBenjamin E Ball Work Phone: Arthroplasty of kneeBenjamin E ChartITright Work Phone: Cataract surgeryBenjamin E ChartITright Work Phone: CholecystectomyBenjamin E ChartITright Work Phone: ColonoscopyBenjamin E ChartITright Work Phone: Depression screeningBenjaSSEV Other HysterectomyBenjamin E Ball Work Phone: Procedure on backBenjamin E Ball Work Phone: Comment on above:10/22 03/24;Repair of musculotendinous cuff of shoulderBenjamin E Ball Work Phone: Screening for malignant neoplasm of breastBenhaseeb Ball Other Plan of Treatment DateCare ActivityDetailAuthorStart: 75-37-0047Dsuhsxle ScreeningDiabetes ScreeningOhioHealth Grant Medical Centertart: 80-17-1319Gnpdkykf ScreeningDiabetes Screening [facility]rt: 18-70-6128LrvglnmsdjjeeziyIsgpcxfgyczowrXfumrlipgb [facility] ClevelandStart: 58-25-3676ApjetitmxxbcbedeTgmujlbhcugcliMkigtrnzsv [facility] ClevelandStart: 09-14-2025 End: 77-73-5524Fefihpb encounter jfnhtogkf67/15/2026 10:20 AM EDT Office Visit [place] [address] [facility] [address] [place] [address] Bryce Hendrickson MD [address] [facility] [address] [place] [address] [facility]: 32-29-5226AW Controlled (<130/80)BP Controlled (<130/80)[facility] Hospitalrt: 31-01-5833Sumjgbml blood countHemoglobin/HematocritGalion Hospitalrt: 87-97-7117Anywyxsfrp measurementSerum CreatinineOhioHealth Grant Medical Centertart: 57-82-9618VRDXMSZW SCREENDIABETES SCREENGalion Hospitalrt: 03-19-2025 End: 06-81-8798Hhsbljn encounter paqivgnsg19/17/2025 3:15 PM EST Procedure Visit [facility] [address] [place] [address] Tamy Khan DPM [address] [place] [address] [facility] PodiatryStart: 03-05-2025 End: 68-36-5679Gthywzr encounter afqogxirv43/03/2025 2:15 PM EST Office Visit [facility] [address] [place] [address] Allen Encarnacion DO [address] [place] [address] [facility] EyeStart: 02-16-2025 End: 16-80-7392Ifigyax encounter /17/2025 10:45 AM EDT Appointment [facility] [address] [facility] [address] [place] [address] [facility] HealthStart: 02-12-2025 End: 01-07-6161Vmyrisc encounter yvbiknssn73/13/2025 2:45 PM EDT [facility] [address] [place], [place] Dick Levin, PA [address] [place] [address] Acute pain of right shoulder (Primary Dx) NOMSelena [place]ui OrthopaedicsComment on above:Acute pain of right shoulder (Primary Dx)Start: 01-30-2025 End: 08-19-5712LS Heart TransthoracicTransthoracic Echo Limited Echocardiography Routine Mitral valve insufficiency, unspecified etiology Left ventricular systolic dysfunction Expected: 01/30/2025 (Approximate), Expires: 01/30/2027[facility] Service Area Work Phone: Comment on above:Expected: 01/30/2025 (Approximate), Expires: 01/30/2027Start: 33-20-2177Qxbmkcyer for osteoporosisBone Density Scan [facility]: 93-78-0131DrhexxyvnProtestant Deaconess Hospitaltart: 35-10-3906DATXW-19 Vaccine ( season)COVID-19 Vaccine ( season)[facility]: 12-19-2024 End: 06-95-9456Bfenvyc encounter vkuemfkmd80/19/2025 9:45 AM EDT Procedure Visit [facility] [address] [place] [address] Tamy Khan, DPM [address] [place] [address] N[facility]S PODIATRYStart: 12-14-2024 End: 57-87-0118Fhovzri encounter bfldqfcni68/14/2025 3:15 PM EDT Procedure Visit [facility] [address] [place] [address] Tamy Khan, ARIAS [address] [place] [address] N[facility]S PODIATRYStart: 63-77-2628VAB High Risk: (Elderly (60+) or Population) (1 - 1-dose 75+ series)RSV High Risk: (Elderly (60+) or Population) (1 - 1-dose 75+ series)[facility]Start: 57-07-4310XOB Vaccine (1 - 1-dose 75+ series)RSV Vaccine (1 - 1-dose 75+ series) [facility]ertart: 13-81-4113QmarcflbhProtestant Deaconess Hospitaltart: 11-28-2024 End: 23-24-0512Dmdjjom encounter pulvldoek55/29/2025 10:45 AM EDT Office Visit [facility] [address] [place] [address] Allen Encarnacion DO [address] [place] [address] NOMS EARL OPHTStart: 21-16-8833Ilofnrtoprmxip of prophylactic treatmentProtestant Deaconess Hospitaltart: 79-86-8653Qhtvgfgw admissionProtestant Deaconess Hospitaltart: 69-20-3822Cohncdbf to clinical allergistProtestant Deaconess Hospitaltart: 97-59-6617PdxnxcjvoMet[facility]health [facility] CenterStart: 00-18-7646Pmqlyesv to rehabilitation physicianMetrohealth [facility] Center CenterStart: 38-22-5889UyafjcfsbMetrohealth [facility] Center CenterStart: 11-11-2024 End: 52-07-9772JhisfpondMetrohealth [facility] Heights Medical Center CenterStart: 87-11-5107Lztbhivas culture of sputumMetrohealth [facility] Center CenterStart: 53-79-7944HcmwgyhiaMetrohealth [facility] Center CenterStart: 11-09-2024 End: 39-60-8764Nugywiy encounter dzamzlkdk81/10/2025 9:00 AM EDT Procedure Visit [facility] [address] [place] [address] SOJY SWS NEURStart: 79-19-0412RffgqwbzdMetrohealth [facility] Medical Center CenterStart: 11-08-2024 [facility] CenterStart: 29-30-3659Jyvvzywc to area manager [facility] CenterStart: 80-50-5542Auzfygtbmzyaq metabolic 1999 panel - Serum or [facility] CenterStart: 11-07-2024 [facility] CenterStart: 11-06-2024 End: 82-24-5304Swwqaxy encounter eqdbyposy09/07/2025 12:00 PM EDT Procedure Visit [facility] [address] [place] [address] NOMS SWS NEURStart: 20-90-3920Ikobvszitndgl metabolic 1999 panel - Serum or PlasmaMetrohealth [facility] Heights Medical Center CenterStart: 39-64-1480IuqwnzkbcMetrohealth [facility] CenterStart: 61-59-1670Cdheasfj to gastroenterologistMetrohealth [facility] Center CenterStart: 79-16-3368Kxmrivvmldqzn metabolic 1999 panel - Serum or PlasmaMetrohealth [facility] Medical Center CenterStart: 98-58-6480QpnqdtmerMetrohealth [facility] CenterStart: 51-10-8367Pwxqvvenqctbw metabolic 1999 panel - Serum or [facility] CenterStart: 48-73-8864UuixgnjuzMetrohealth [facility] Center CenterStart: 84-99-3656Ycdhwlkxpfwtv metabolic 1999 panel - Serum or [facility] CenterStart: 11-03-2024 End: 13-04-6438UbrfavptmProtestant Deaconess Hospitaltart: 64-66-3414XkzylpmmfProtestant Deaconess Hospitaltart: 32-02-6735Bpbjylmc to nephrologistProtestant Deaconess Hospitaltart: 95-82-1909RuqtmxrxichuMorqqbxjfProtestant Deaconess Hospitaltart: 25-37-7502Pctadgpc admissionProtestant Deaconess Hospitaltart: 74-50-6767Heywnfykj culture of sputumProtestant Deaconess Hospitaltart: 49-72-2752Xbluyuvs therapy procedureProtestant Deaconess Hospitaltart: 56-71-6447Sgpsdnze to occupational therapistKettering Health [facility] Start: 11-02-2024 End: 46-04-2662ShruzmexoProtestant Deaconess Hospitaltart: 75-96-1530Udjtrejwhgpf consultation with patientProtestant Deaconess Hospitaltart: 10-23-2024 End: 50-03-8360Xvujnvz encounter procedureNOMS SWS NEURComment on above:Arrived Start: 10-17-2024 End: 75-17-6016Plnyggl encounter jsfwfbfya46/17/2025 4:00 PM EDT Office Visit [facility] [address] [place] [address] Tamy Khan DPM [address] [place] [address] N[facility]S PODIATRYStart: 09-28-2024 End: 34-69-2857Zqulicc encounter /29/2025 10:15 AM EDT Office Visit [facility] [address] [place] [address] Tamy Khan DPM [address] [place] [address] ArrivedNOMS PODIATRYComment on above:ArrivedStart: 09-06-2024 End: 64-04-6054Wifkwkx encounter ukrzjtvxw39/07/2025 2:45 PM EDT Procedure Visit [facility] [address] [place] [address] Tamy Khan, DPM [address] [place] [address] ArrivedNOMS PODIATRYComment on above:ArrivedStart: 08-28-2024 End: 12-14-2762Afiprpa encounter fikjetrtk82/28/2025 10:15 AM EDT Procedure Visit [facility] [address] [place] [address] Marce Khan, SHAKILAM [address] [place], [place] [address] NOMS PODIATRYStart: 08-21-2024 End: 20-47-0516Uxhgog-up hrnxqfgdi98/21/2025 11:20 AM EDT Visit (SP) Office Hematology/Oncology [address] [place] [address] Jacob Mercado MD [address] [place] [address] [place] [address] 1 year follow up lab and BRM(mammo 02/14/24)Hematology/Oncology Comment on above:1 year follow up lab and BRM(mammo 02/14/24)Start: 08-21-2024 End: 57-89-1428Yplqjuh encounter /21/2025 11:00 AM EDT Office Visit [facility] [address] [place] [address] 1 year follow up lab and BRMNRaleigh General Hospital LaboratoryComment on above:1 year follow up lab and BRMStart: 07-18-2024 End: 15-41-4500Joaxzhj encounter cawhvtdzk91/18/2025 11:10 AM EDT Office Visit [facility] [address] [place] [address] Chuck Cope MD [address] [place] [address] NOMS CI ENTStart: 06-29-2024 End: 13-38-0058Xftomze encounter /27/2025 11:00 AM EST Office Visit [facility] [address] [place] [address] Bran Linda MD [address] [facility] [address] [place] [address] NOMS SWS NEURStart: 32-64-2679Ailnl radiography of pelvisXR pelvis 1-2VProtestant Deaconess Hospitaltart: 71-14-0915F-ray of left knee, three viewsXR knee LT 3V - NOT FOR ER USEProtestant Deaconess Hospitaltart: 94-97-4931LQ Knee - left 3 ViewsProtestant Deaconess Hospitaltart: 76-07-0396LO Pelvis 1 or 2 ViewsProtestant Deaconess Hospitaltart: 70-14-7973KH Controlled (<130/80)BP Controlled (<130/80) [facility]ertart: 59-07-0122Aazianrp blood countHemoglobin/Hematocrit [facility] Centertart: 62-83-8796Hwpvhpsgyf measurementSerum CreatinineOhioHealth Grant Medical Centertart: 06-20-2024 End: 13-43-3397Ypbmsd-up hbrawmfay19/18/2025 1:45 PM EST Visit (SP) Office Hematology/Oncology [address] [place], [place] [phone] Jacob Mercado MD [address] [place] [address] 1 year follow up lab and BRMHematology/OncologyComment on above:1 year follow up lab and BRMStart: 06-20-2024 End: 78-28-2224Inserke encounter ujhzomwbi01/18/2025 1:30 PM EST Office Visit [facility] [address] [place] [address] 1 year follow up lab and BRMNRaleigh [facility] Hospital LaboratoryComment on above:1 year follow up lab and BRMStart: 06-05-2024 [facility] Hospitaltart: 02-77-4085Edqaqcec to rehabilitation physicianProtestant Deaconess Hospitaltart: 06-04-2024 End: 61-82-5006Nsiet metabolic 2000 panel - Serum or PlasmaBasic Metabolic Panel Lab Routine Essential hypertension Expected: 06/04/2024 (Approximate), Expires: 05/04/2025[facility] Service Area Work Phone: Comment on above:Expected: 06/04/2024 (Approximate), Expires: 05/04/2025Start: 41-33-7429Oixtpmrd to nephrologistProtestant Deaconess Hospitaltart: 65-46-5093Ltspgppd admissionProtestant Deaconess Hospitaltart: 62-24-3175TgdeyhynvProtestant Deaconess Hospitaltart: 06-01-2024 [facility] Hospitaltart: 05-29-2024 End: 95-63-9426Dwkxgge encounter procedureNOMS NB OPHTComment on above:Arrived Start: 05-16-2024 End: 69-04-9942Lmxkbrh encounter ptyhmzfxg26/14/2025 2:30 PM EST Procedure Visit [facility] [address] [place] [address] Marce Khan, DPM [address] [place] [address] ArrivedNOMS PODIATRYComment on above:ArrivedStart: 93-67-7943Vnkckpu referralMercy Health Perrysburg Hospital Work Phone: Start: 05-09-2024 End: 50-57-8042Pfsuzmt encounter tgsxuzqpq03/07/2025 11:20 AM EST Office Visit [facility] [address] [facility] [address] [place] [address] Chuck Cope MD [address] [facility] [address] [place] [address] NOMS CI ENTStart: 91-93-9670Fmgycdz Directive DiscussionAdvance Directive DiscussionClewyandot memorial hospital ClinicStart: 78-17-0368WeandmxuyProtestant Deaconess Hospitaltart: 20-69-7445YIKRJBXB SCREENDIABETES SCREENOhioHealth Grant Medical Centertart: 08-84-7671Cgsyazfa admissionKettering Health Washington Township Start: 81-18-4748Zusfgzzw to nephrologistProtestant Deaconess Hospitaltart: 04-07-2024 End: 28-90-9388Qcnhtob encounter lmcyokdpz08/06/2024 10:30 AM EST Office Visit [facility] [address] [place] [address] Allen Encarnacion DO [address] [place] [address] NOMS NB OPHTStart: 03-28-2024 End: 43-33-3409WS Maxillofacial region WO and W contrast IVCT maxillofacial wo IV contrast Imaging Routine Chronic frontal sinusitis Expected: 03/28/2024, Expi res: 03/28/2025[facility] Work Phone: Comment on above:Expected: 03/28/2024, Expires: 03/28/2025Start: 03-24-2024 End: 54-86-8897Tekwyxb encounter fcqbqvoit46/22/2024 2:10 PM EST Office Visit [place] [address] [facility] [address] [place] [address] Bryce Hendrickson MD [address] [facility] [address] [place] [address] [facility]Start: 03-08-2024 End: 14-01-8040Pnuuznu encounter frenmqzcz58/06/2024 9:20 AM EST Office Visit [facility] [address] [facility] [address] [place] [address] Chuck Cope MD [address] [facility] [address] [place] [address] [facility] CenterNOMS CI ENTComment on above:ArrivedStart: 77-67-6945Vzcakuz referralParkview Health Bryan Hospital Work Phone: Start: 65-16-3012Y-ray of lumbar spine, two or three viewsXR lumbar spine 2-3V*[facility] Hospitaltart: 01-20-2024 End: 04-48-4951Wbucmzp encounter ekjlmdloq63/19/2024 10:20 AM EDT Office Visit [address] [place] [address] Bryce Hendrickson MD [address] [employer] [address] [place] [address] [facility]: [facility]24 End: 03-56-1206Twpnwjc encounter qcfpgvvor60/09/2024 10:45 AM EDT Appointment [address] [place] [address] [facility]: [facility]24Medicare Annual Wellness VisitMedicare Annual Wellness Visit (AWV)[facility]: 91-52-3493SGTIJ-19 Vaccine ( season)COVID-19 Vaccine ( season)[facility]: 02-45-3823HSPXU-19 Vaccine ( season) COVID-19 Vaccine ( season)[facility]: 82-51-7709Wwfnx-19 Vaccine ( season)Covid-19 Vaccine ( season)[facility]: 88-11-4863Dzuwh-19 Vaccine ( season) Covid-19 Vaccine ( season)[facility]: 07-54-3753Ckzhv-19 Vaccine ( season)Covid-19 Vaccine ( season)[facility]: 50-83-7302Dgwcrncoz vaccinationInfluenza Vaccine (#1)[facility]: 01-02-2024 End: 08-51-2707UY Heart TransthoracicTransthoracic Echo Complete Echocardiography Routine Mitral valve insufficiency, unspecified etiology Expected: 01/02/2024 (Approximate), Expires: 07/14/2025[facility] Service Area Work Phone: Comment on above:Expected: 01/02/2024 (Approximate), Expires: 07/14/2025Start: 17-20-5597ZnycosjueProtestant Deaconess Hospitaltart: 58-05-9028S-ray of lumbar spine, two or three viewsXR lumbar spine 2-3V* [facility]: 10-52-8441GfmbfgxacProtestant Deaconess Hospitaltart: 50-24-9915Onktrgh referralParkview Health [facility] Work Phone: Start: 06-75-0033M-ray of lumbar spine, two or three viewsXR lumbar spine 2-3V*[facility]: 43-77-2904ON Lumbar spine 2 or 3 ViewsProtestant Deaconess Hospitaltart: 07-13-2023 End: 84-78-0190Myggmoy encounter drqhnwbul85/12/2024 10:50 AM EDT Office Visit [facility] [address] [facility] [address] [place] [address] Bryce Hendrickson MD [address] [facility] [facility] [address] [place] [address] [facility]Start: 88-67-1050WLUFL CREATININESERUM CREATININE [facility]: 36-02-3167Tmrvxkq Directive DiscussionAdvance Directive DiscussionOhioHealth Grant Medical Centertart: 14-98-0997RhudnyyuoK[facility] Start: 72-44-1754Bzewycof admissionProtestant Deaconess Hospitaltart: 11-44-4698EzybtxtfaProtestant Deaconess Hospitaltart: 09-31-5034Cpvvgnxg to rehabilitation physicianProtestant Deaconess Hospitaltart: 04-13-2023 Hospital admissionProtestant Deaconess Hospitaltart: 04-09-2023 End: 02-34-0958RR Lumbar Laminectomy w/Fix Implants (Not Applicable)OR Lumbar Laminectomy w/Fix Implants (Not Applicable)[facility] Start: 04-09-2023 End: 08-62-3323IdmjlvahjProtestant Deaconess Hospitaltart: 93-89-9009YGIMX-19 Vaccine (5 - Pfizer series)COVID-19 Vaccine (5 - Pfizer series)[facility]: 83-60-6193BhekydhhwProtestant Deaconess Hospitaltart: 03-02-2023 End: 54-40-0256Xwmcq metabolic 2000 panel - Serum or PlasmaBasic Metabolic Panel Lab Routine Edema, unspecified type Expected: 03/02/2023 (Approximate), s: 03/02/2024[facility] Service Area Work Phone: Comment on above:Expected: 03/02/2023 (Approximate), Expires: 03/02/2024Start: 86-29-5916BAE, Provider: Bryce Hendrickson, Status: Pen, Time: 10:00 AMFUV, Provider: Bryce Hendrickson, Status: Pen, Time: 10:00 AM-[facility] [address] [address] DO Work Phone: Start: 85-14-1889ZEZJ, Provider: HUI GRIDERI ULTRASOUND 01,[id number], Status: Pen, Time: 10:45 AMECHO, Provider: HUI HHVI ULTRASOUND 01,[id number], Status: Pen, Time: 10:45 AM-[facility]- [place] [address] DO Work Phone: Start: 29-57-1571Vpxkyonkl for osteoporosisBone Density [facility]: 85-48-0954DYCVAN NUC, Provider: HUI GRIDERI NUCLEAR 01,[id number], Status: Pen, Time: 12:00 PMSTRESS NUC, Provider: HUI HHVI NUCLEAR 01,[id number], Status: Pen, Time: 12:00 PM -[facility]-[place] [address] DO Work Phone: Start: 05-19-2022 End: 76-09-4120Odnwtq Ag 27-29 [Units/volume] in Serum or PlasmaMercy Health Work Phone: Comment on above:Expected: 05/19/2022, Expires: 07/19/2022Start: 60-66-4162BYNMRNK DIRECTIVE DISCUSSIONADVANCE DIRECTIVE DISCUSSIONOhioHealth [facility] Medical Centertart: 47-90-6084UTNAI CREATININESERUM CREATININE [facility]: 97-80-0623KnfmdzjyuProtestant Deaconess Hospitaltart: 10-64-1495Okmlwgjzm vaccinationINFLUENZA (#1)[facility]: 12-09-2021 Screening for osteoporosisBone Density [facility] Start: 76-03-6150BNCODRIGUZQU: 65+ (2 - PCV)PNEUMOCOCCAL: 65+ (2 - PCV)[facility]: 82-03-1881NZOOB-19 VACCINE (4 - Booster for Pfizer series)COVID-19 VACCINE (4 - Booster for Pfizer series)[facility]: 90-69-7608YNOL DENSITYBONE DENSITYOhioHealth [facility] Medical Centertart: 07-75-2580Vginumlqt for osteoporosis Bone Density ScreeningOhioHealth Grant Medical Centertart: 10-30-0745AKoB/Tdap/Td Vaccines (1 - Tdap)DTaP/Tdap/Td Vaccines (1 - Tdap)[facility]: 80-16-6472Ljlga microalbumin profileDTaP,Tdap,Td Vaccine (1 - Tdap)[facility]: 62-34-2170OJT High Risk: (Elderly (60+) or Population) (1 - Risk 60-74 years 1-dose series)RSV High Risk: (Elderly (60+) or Population) (1 - Risk 60-74 years 1-dose series)[facility]: 38-69-7663YHS patients and/or patients aged 60+ years (1 - 1-dose 60+ series)RSV patients and/or patients aged 60+ years (1 - 1-dose 60+ series)[facility]: 04-09-6433SMK Vaccine (1 - 1-dose 60+ series)RSV Vaccine (1 - 1-dose 60+ series)[facility] Start: 66-75-2799Klfbmzknmh measurementCreatinine [facility]: 66-64-3299Eyimsuyfc measurementPotassium [facility]: 81-65-3538PASRLZGPF (FIT-DNA)COLOGUARD (FIT-DNA) [facility]: 51-59-7884NdpmlrogafbWQJYNFCRAAFWgvfnkdao ClinicStart: 57-13-5066LKHYNFNARR CANCER SCREENINGCOLORECTAL CANCER SCREENINGK[facility]tering Health [facility] Start: 76-57-6839AC COLONOGRAPHYCT COLONOGRAPHYOhioHealth [facility] Medical Centertart: 1994 FECAL OCCULT BLOODFECAL OCCULT BLOODOhioHealth [facility] Medical Centertart: 99-16-6839Ricsm panel Lipid ScreeningOhioHealth Grant Medical Centertart: 16-62-0695NWKHV SCREENLIPID SCREEN [facility]: 12-99-4167Gmyocubzh for malignant neoplasm of colon [facility]: 57-81-3827RZXUPHCYXJAEYXKNHHSDIOIYGFIxerqrhnf Clinic Start: 39-98-8552TkptozxaggiGRPWDOHVYRxbajksmd ClinicStart: 83-32-5780Hisncbfvl for malignant neoplasm of breastOhioHealth [facility] Medical Centertart: 11-37-4241UXmY/Tdap/Td Vaccines (1 - Tdap)DTaP/Tdap/Td Vaccines (1 - Tdap)[facility]: 90-98-6322Yyyab microalbumin profileDTAP,TDAP,TD (1 - Tdap) [facility]: 90-32-3439Lemgv screening for proteinCKD: Urine Protein ScreeningKettering Health [facility]: 54-97-0780XRKJNC PCP TEAM CHRONIC DISEASE VISITANNUAL PCP TEAM CHRONIC DISEASE VISITOhioHealth Grant Medical Centertart: 44-14-2819Ypmlidg ScreeningAnxiety ScreeningOhioHealth Grant Medical Centertart: 23-85-7818WQ CONTROLLED (<130/80)BP CONTROLLED (<130/80)[facility]: 12-07-1968 Diabetes mellitus screeningDiabetes ScreeningFayette County Memorial Hospital Start: 83-77-7854ZKIJQQEYF C SCREENINGHEPATITIS C SCREENINGK[facility]tering Health [facility] Start: 24-79-0011Vkieipymo C screeningHepatitis C ScreeningK[facility]tering Health [facility]: 31-10-2394UPN Vaccines (1 of 1 - Standard series)MMR Vaccines (1 of 1 - Standard series)[facility]: 1950 Lipid panelLipid PanelUnMagruder Hospital: 08-06-1950Medicare Annual Wellness VisitMedicare Annual Wellness Visit (AWV)[facility]: 25-06-2122Ttzxxwjlh for malignant neoplasm of colonFayette County Memorial HospitalAnion gap [facility] Comprehensive metabolic 1999 panel - Serum or [facility] HospitalComprehensive metabolic 1999 panel - Serum or [facility] End: 37-83-0122Vloxxzlgth mammography computer-aided detcj uniMAM DIAGNOSTIC RT Radiology Routine Malignant neoplasm of upper-outer quadrant of left breast in female, estrogen receptor negative (HCC) 1 Occurrences [facility] 05/19/2022 until [facility] Work Phone: Comment on above:1 Occurrences starting 05/19/2022 until 06/18/2023EMG 2 [facility] Work Phone: Comment on above:Ordered: 10/23/2024Glomerular filtration rate [Volume Rate/Area] in Serum, Plasma or Blood by Creatinine [facility] TownshipHuman papilloma virus 16+18+31+33+35+39+45+51+52+56+58+59+66+68 DNA [Presence] in Cervix by Probe with signal amplificationK[facility]tering Health [facility] End: 20-46-9176WL Breast - right Diagnostic for implantMAM DIAGNOSTIC RIGHT Radiology Routine Malignant neoplasm of upper-outer quadrant of left breast in female, estrogen receptor negative (HCC) (HCC) 1 Occurrences starting 06/22/2023 until 5CM[facility] Work Phone: Comment on above:1 Occurrences starting 06/22/2023 until 07/21/2024 End: 44-57-3068AA Breast - right Diagnostic for implantMAM DIAGNOSTIC RIGHT Radiology Routine Malignant neoplasm of upper-outer quadrant of left breast in female, estrogen receptor negative (HCC) 1 Occurrences starting 08/21/2024 until 6CM[facility] Work Phone: Comment on above:1 Occurrences starting 08/21/2024 until 09/20/2025MR Brain [facility]MR Cervical spine WO [facility] CenterPatient EducationMetrohealth [facility] Work Phone: Patient referralMetrohealth [facility] Work Phone: End: 67-30-1596PS Heart TransthoracicCARLSBAD MEDICAL [facility]ENTER Service Area Work Phone: Comment on above:Once for 1 Occurrences starting 01/18/2024 until 01/18/2024XR [facility] GE 3 [facility]XR Lumbar spine 2 or 3 [facility]XR Lumbar spine 2 or 3 [facility]XR Lumbar spine 2 or 3 [facility] Immunizations Immunization DateImmunizationNotesCare OvceefneZdmarlvu11-19-7501vfhesswya, high dose seasonal, preservative-freeBenjamin Ball DO Work Phone: [facility]09-22-2023Influenza, Seasonal, Quadrivalent, AdjuvantedBryce Hendrickson MD Work Phone: [facility] Work Phone: [phone]nud COVID-19 vaccine, Fall 2022, 12 years and older, (30mcg/0.3mL)Bryce Hendrickson MD Work Phone: [facility] Work Phone: [phone]sdzasn virus vaccine, unspecified formulationTriny Mart RN Work Phone: [facility] TroyNnvjwh85-88-9523idgeuxrqdael conjugate vaccine, 13 valentBenjamin E Ball Work Phone: [facility] TroyGlvpdo52-35-6905Crsumcm COVID-19 Vaccine 100 MCG/0.5ML Intramuscular SuspensionBenjamin E Ball Work Phone: [facility] TroyZigcfb24-89-7915Udlxjz COVID-19 Vac Bivalent 30 MCG/0.3ML Intramuscular SuspensionBenjamin E Ball Work Phone: [phone]-ZtxulOwatonna Clinic 250 DO Work Phone: [phone]-61 Pfizer (Pediatric)Sylvester Jacob Other [facility]09-14-2022Fluad Quadrivalent 0.5 ML Intramuscular Prefilled SyringeBenjamin E Nidia Work Phone: [facility] TroyMtigjr04-26-7115npbxjzoae nasal, unspecified formulationJacob Mercado MD Work Phone: [facility] TroyKfuzzp35-38-7269ohvhmnmbd virus vaccine, split virus (incl. purified surface antigen)Sylvester Jacob Other [facility] [employer] Other 09779553-15-8628fjigechqi virus vaccine, unspecified formulationDO Sylvester Jacob Work Phone: [facility]09-14-2022influenza, injectable, quadrivalent, preservative Joselin Cope MD Work Phone: [facility] HospitalDameqwfmdu34-14-3279nukecvehv, seasonal, injectableBenjamin E Nidia Work Phone: [facility] TroyComment on above:Series:08-28-2021 Comirnaty 30 MCG/0.3ML Intramuscular SuspensionBenjamin E Nidia Work Phone: [phone]-IbfgqM [facility] 250 DO Work Phone: [phone]-54 Vaccine Pfizer - Documentation Purposes OnlyDavidpariskaroline Jacob Other [facility]09-28-2021COVID-19 mRNA, Comirnaty (Pfizer)DO Sylvester Jacob Work Phone: [facility]09-28-2021Fluzone High-Dose Quadrivalent 0.7 ML Intramuscular Suspension Prefilled SyringeBenjamin Galo Jacob Work Phone: [facility] TroyPjuiak27-70-1434rcaziiottbhy polysaccharide vaccine, 23 valentBenjamin E Nidia Work Phone: [facility] TroyRyyllq91-38-6508RXEPR-28 mRNA, Comirnaty (Phenomix)DO Sylvester Jacob Work Phone: [facility]02-08-2021COVID-19 mRNA, Comirnaty (Pfizer)DO Sylvester Jacob Work Phone: [facility]01-25-2021zoster vaccine recombinantBenjamin E Nidia Work Phone: [facility] TroyVljybh46-97-0428zljhqz vaccine, liveBenjamin Nidia Other [facility]10-28-2020zoster vaccine recombinantBenjamin Galo Jacob Work Phone: [facility] TroyDztjey95-29-9725runasa vaccine, liveBenjamin Nidia Other [facility]10-01-2020influenza, injectable, quadrivalent, preservative freeDO Sylvester Jacob Work Phone: [facility]09-30-2020influenza nasal, unspecified formulationJacob Mercado MD Work Phone: [facility] TroyQzqypk29-02-3278eiroregme virus vaccine, split virus (incl. purified surface antigen)Sylvester Jacob Other [employer] Other 09310758-19-2066fbkbdvmwg virus vaccine, unspecified formulationDO Sylvester Jacob Work Phone: [facility]09-28-2020influenza, high dose seasonal, preservative-freeBenjamin Galo Jacob Work Phone: [facility] TroyHxapgu46-66-3681Ekxlrajyp, High-dose Seasonal, Quadrivalent, Preservative Joselin Cope MD Work Phone: [facility] HospitalYontyztgly82-37-6538xpbltskbj, injectable, quadrivalent, preservative freeBenjamin E Ball Work Phone: [facility] TroyKlvngk47-26-5949zvxumyraq nasal, unspecified formulationJacob Mercado MD Work Phone: [facility] TroyKwvbdw09-37-8139shmmblput virus vaccine, split virus (incl. purified surface antigen)Sylvester Jacob Other [employer] Other 010188-75-2091mxubgtozp virus vaccine, unspecified formulationDO Sylvester Jacob Work Phone: [facility]10-18-2018influenza, high dose seasonal, preservative-freeBenjamin E Ball Work Phone: [facility] TroyLxbfxi78-94-7263khkotnkej virus vaccine, unspecified formulationBenjamin E Ball Work Phone: [phone]-MydlpM [facility] 600 DO Work Phone: [phone]luewr, injectable, quadrivalent, preservative freeBenjamin E Ball Work Phone: [facility] TroyXiusce84-29-9582tuskmbved, injectable, quadrivalent, preservative freeBenjamin E Ball Work Phone: [facility] TroyZvhjun70-21-1662bhtfnphse, injectable, quadrivalent, preservative Joselin Cope MD Work Phone: [facility] HospitalBqajqgelta88-67-3026qlrtapgztghf polysaccharide vaccine, 23 valentBenjamin E Ball Work Phone: [facility] TroyKlgbpd56-83-1596mxshcilfn, high dose seasonal, preservative-freeBenjamin E Ball Work Phone: [facility] TroyGlohyz85-96-1963xnchjdhaz virus vaccine, unspecified formulationBenjamin E Ball Work Phone: [phone]-SogrtM Health [facility] 600 DO Work Phone: [phone]pzvpyztz conjugate vaccine, 13 valent Sylvester Jacob Work Phone: [facility] TroyXqmpdg59-64-2221fxcinjrtq nasal, unspecified formulationJacob Mercado MD Work Phone: [facility] TroyRglyzo93-16-6478jzckxdhtq virus vaccine, split virus (incl. purified surface antigen)Sylvester Jacob Other [facility] [employer] Other 01811959-92-6460fbcjzihvv virus vaccine, unspecified formulationDO Sylvester Jacob Work Phone: [facility]01-03-2017influenza, injectable, quadrivalent, preservative freeBenjamin E Nidia Work Phone: [facility] TroyNtrjdn05-63-2183qbkymegmi, injectable, quadrivalent, contains preservativeBenjamin E Nidia Work Phone: [facility] TroyHfuqoj51-52-7852wxdvgkdqa, injectable, quadrivalent, preservative Mahsa Mercado MD Work Phone: [facility] TroyRgtzab68-90-6505kyrkrnosh virus vaccine, unspecified formulationBenhaseeb Jacob Work Phone: [phone]-IgsbpM [facility] 600 DO Work Phone: [phone] 515-92430332468-69-2930kbmpxumkfbkn conjugate vaccine, 13 valent Sylvester Jacob Other [facility]05-16-2016 pneumococcal Conjugate, unspecified formulation; Translations: [Need for prophylactic vaccination against Streptococcus pneumoniae (pneumococcus)] Sylvester Jacob Other [facility] [employer] Other 01924387-75-0335xaqesjjfnnoz polysaccharide vaccine, 23 valentBenjamin Galo Jacob Work Phone: [facility] TroyStisim49-36-3982yniekbzft virus vaccine, unspecified formulationBenjamin E Nidia Work Phone: [facility] 600 DO Work Phone: [phone]yzavcqhko polysaccharide vaccine, 23 valentBenjamin Ball Other [facility]10-22-2014tetanus and diphtheria toxoids, adsorbed, preservative free, for adult use (5 Lf of tetanus toxoid and 2 Lf of diphtheria toxoid)Sylvester Jacob Other [facility]10-01-2014influenza virus vaccine, unspecified formulationBenjamin E Ball Work Phone: [phone]-AxyfxM [facility] 600 DO Work Phone: [phone] 680-376910825918-75-4173eubhjz vaccine, Brook Mercado MD Work Phone: [facility] TroyJpyemp76-16-8281lawfjzmqwimy polysaccharide vaccine, 23 valentBenjamin E Ball Work Phone: [facility] TroyEsnheu90-80-3905lropabrsqdwa polysaccharide vaccine, 23 valentBenjamin E Ball Work Phone: [facility] TroyWxqxeg92-33-4216vwdyjzlyl virus vaccine, unspecified formulationJacob Mercado MD Work Phone: [facility] TroyFtsvgf67-27-6033lqgprxjzbuah polysaccharide vaccine, 23 Yasmeen Mercado MD Work Phone: [facility] TroyFtpaux90-93-6327qfywhfyuv, high dose seasonal, preservative-freeBryce Hendrickson MD Work Phone: [facility] Work Phone: [phone] 446-323001182277-54-4312xsdqboxnd, high dose seasonal, preservative-freeBryce Hendrickson MD Work Phone: [facility] Work Phone: [phone]fdfnfs virus vaccine, unspecified formulationBryce Hendrickson MD Work Phone: [facility] Work Phone: influenza virus vaccine, unspecified formulation Sylvester Rosenthal Nidia Work Phone: [phone]-Kgguy [facility] [address] DO Work Phone: Comment on above:[id number] Payers DatePayer CategoryPayerPolicy [id number]-exi [id number] supplemental policy (as second payer)[employer] Member Subscriber Plan / Payer (Effective 2018-Present) Name: Renuka Owen Yissel Relation to Subscriber: Self Name: Brayden, Renuka A Payer ID: Not on file Group ID: Not on file Type: Not on file Address: [address] [place] [id number]17182.15188-07-0764Feisfpr Health [id number] 2015Medicare [id number] [id number] Health [id number] 4c82gml5-4o81-683t-28l4-ib7dnb[id number] 2.1.791317.3.57[id number] 2..1.241667.3.57[id number] 2.1.510746.3.57[id number] 2.16.840.1.889428.3.579.[id number] 2.16.840.1.504825.3.579.2.47482-39-3843Uetuyzt8452729 2.16.840.1.346187.3.579.2.84098-08-2927Htxuvdw0762592 2.16840.1.263762.3.579.2.12603-71-9122Blnyyci5174704 2.16840.1.030517.3.579.2.[id number] 2.840.1.299303.3.579.2.988926-21-3412Gnlrfur49752966 2.840.1.082543.3.579.2.2[id number] 2.840.1.310499.3.579.[id number] 2.840.1.715341.3.579.2.588698-28-8027Yooajff29683314 2.840.1.771960.3.579.2.5[id number] 2.840.1.583730.3.579.2.591926-65-9919Taszscb8735480 2.840.1.810177.3.579.2.993754-40-3961Fewmnjh7193346 2.840.1.931007.3.579.2.770387-01-4223Lgulajt6666900 2.16840.1.146534.3.57[id number] 2.840.1.776797.3.579.2.581373-36-7732Iicafia9505852 2.0.1.508886.3.579.2.707256-96-3559Cxrjdln7812007 2.0.1.373341.3.579.2.747587-39-3302Kqsiheo1753828 2.0.1.671082.3.579.2.386132-41-6073Bprlibg890462555 2.0.1.428066.3.579.2.3[id number] 2.0.1.687220.3.57[id number] 2.0.1.64528[id number] Insurance [id number] 74bfmo8n-56c8-9150-mn1t-[id number] 0p079m1r-m7j2-9y86-[id number] 2..1.4039[id number] 2.0.1.188645.3.579.2.531 [id number] 2.0.1.219218.3.579.2.662Jwfiwxe06952431 2.0.1.667525.3.579.2.867Vmjwtwf43371135 2.0.1.150638.3.579.2.531 [id number] 2.0.1.6[id number] 2.0.1.482979.3.579.2.531 Social History DateTypeDetailFacilityStart: 09-24-2021 End: 22-55-8801Tjqpjhv smoking status NHISNever smoked tobacco (finding) [facility]: 16-68-0530Opd Assigned At BirthFemale [facility]: 03-02-2023 End: 88-72-2757Ank Assigned At BirthOhio[facility] Medical Centertart: 03-02-2023 End: 38-50-5859Ugqfyyl useAlcohol useOhioHealth Grant Medical Centertart: 03-30-2012 End: 32-00-4648Edwehel use and exposureSmokeless tobacco non-userOhioHealth Grant Medical Centertart: 04-08-2021 End: 03-26-3332Yvzcvjp intakeCurrent drinker of alcohol (finding)[facility]: 39-40-9716Rltxnrq Commentvery seldomOhioHealth Grant Medical Centertart: 52-16-0273Jhr Assigned At BirthNot on fileOhioHealth Grant Medical Centertart: 03-02-2023 End: 36-52-1382Vtlpikz intakeNot AskedFayette [facility] Memorial Hospital Work Phone: Start: 28-37-8170Wsiuqur CommentsocialFayette County Memorial Hospital Work Phone: Start: 02-20-2023 End: 56-96-2425Kqsspvfg to SARS-CoV-2 (event)Not sureFayette County Memorial HospitalStart: 88-12-3998Kzylmw identityIdentifies as female gender (finding) [facility] Work Phone: Start: 03-28-2022 End: 88-43-7252Qcraz Depression Screening Rgafqpkias4Pouqgskbk ClinicStart: 92-47-1536Ayxddmu CommentrarelyFayette County Memorial Hospital Work Phone: Start: 82-31-0780Andseoo Commentcaffeine intake: 2-3 cups per day of diet cokeNOMS HealthcareStart: 98-09-7369Sijrfmiip beverage intakeEx-drinker (finding)[facility] HealthcareStart: 03-28-2022 End: 32-72-2567MbfAilibj (finding)[facility]: 06-05-2024 End: 80-47-3069THPA Follow upSDOH Follow upMer[facility] Health [facility] Work Phone: Medical Equipment Procedure CodeEquipment CodeEquipment Original TextEquipment IdentifierDates Jph-Xj-O-Kind Implant - [id number]: 08-81-3422Opawnkt on above: Description: [employer] CPX3 Med Height Tissue ApjlbwphFau-Ak-O-Kind Implant - [id number]: 75-26-3794Cyqprys on above:Description: Natrelle Silicone Filled Breast ImplantExp Tiss 550ml Styl 7200 Med - [id number] Start: 04-84-1334Oqw Brst 700ml Styl 20 Smth - [id number]: 01-67-3555Tmcmhaa on above:Description: smooth round high profileSpinal fusion graft kit()[id number] FDAStart: 83-49-1797Aikr- screw internal spinal fixation system, non-sterile+[id number] FDAStart: 82-85-2727Wspl-screw internal spinal fixation system, non-sterile+[id number] FDAStart: 78-85-8885Ogicwnsns spinal fusion cage, non-sterile ()[id number] FDAStart: 98-96-9798Nidb-screw internal spinal fixation system, non-sterile+[id number] FDAStart: 20-19-4381Uzoh-screw internal spinal fixation system, non-sterile+[id number] FDAStart: 03-30-2022 Spinal fusion graft kit()[id number] FDAStart: 26-32-8951Eptdytrtc spinal fusion cage, sterile ()[id number] FDAStart: 66-78-0764Rco-Of-A-Kind Implant - [id number]: 21-37-7579Mqhblai on above:Description: Natrelle Silicone Filled Breast ImplantImp Brst 375ml Styl 20 Smth - [id number] Start: 21-38-4405Woshhbk on above:Description: smooth round high profile Goals DatePatient GoalDesired Activity/State Functional Status KwujPbvwtcqxdwDstlvrNkuuwzya42-29-0906Jtbytnvgcp vrbelo793/[address] [place], [place] [address]110-20-2025Un[facility] Work Phone: [phone] /[address] [place] [address] Work Phone: [phone]) [phone] signs68 01/30/2025 9:30 AM Ana Maria Mai, [facility] Work Phone: [phone] County Memorial Hospital Work Phone: [phone] statusPatient Not at Baseline [facility] Work Phone: [phone] statusPatient at Baseline [facility] Work Phone: [phone] statusPatient Not at Baseline [facility] Work Phone: [phone] statusPatient at Baseline [facility] Work Phone: [phone] statusPatient at Baseline [facility] Work Phone: [phone] statusPatient is Progressing Toward [facility] Work Phone: [phone] statusPatient is Progressing Toward [facility] Work Phone: [phone] statusPatient is Progressing Toward [facility] Work Phone: [phone] you deaf, or do you have serious difficulty hearingNo 06/20/2020 12:13 PM Janelle Wagner RN NoCParma Community General HospitalJecehs51-35-7550Yji you blind, or do you have serious difficulty seeing, even when wearing glassesNo 06/20/2020 12:13 PM Janelle Wagner RN NoCParma Community General HospitalWsqmeg47-35-1725Xw you have serious difficulty walking or climbing stairsNo 06/20/2020 12:13 PM Janelle Wagner RN NoCParma Community General HospitalFfrmpf80-08-6987Mu you have difficulty dressing or bathingNo 06/20/2020 12:13 PM Janelle Wagner RN NoCParma Community General HospitalIaiwjw03-05-6736Ijkqcgc of a physical, mental, or emotional condition, do you have difficulty doing errands alone such as visiting a physician's office or shoppingNo 06/20/2020 12:13 PM Janelle Wagner RN No [facility] Mental Status WfnmXvsktbxkuwXhtnopLhwrjhdg13-88-7368Tdqromnad functionCognitive Status Patient Not at [facility] Work Phone: [phone] functionCognitive Status Patient at [facility] Work Phone: [phone] functionCognitive Status Patient at [facility] Work Phone: [phone] functionCognitive Status Patient at [facility] Work Phone: [phone] functionCognitive Status Patient at [facility] Work Phone: [phone] functionCognitive Status Patient at [facility] Work Phone: [phone] functionCognitive Status Patient at [facility] Work Phone: [phone] functionCognitive Status Patient at [facility] Work Phone: [phone] of a physical, mental, or emotional condition, do you have serious difficulty concentrating, remembering, or making decisionsNo 06/20/2020 12:13 PM Janelle Wagner RN [facility] Clinical Notes 06-19-2020 to 02-12-2025 Note Date & QkoxVvpmZlbrjmdn05-74-8854 History of Present illness Narrative* ANA Cantu - 02/12/2025 2:45 PM EDT Images from the original note were not included. Orthopedic Office note: NAME: Renuka Owen : 1950 (EST PT) (LAST APPT W/ KEY) - (R) SHOULDER DISCOMFORT SINCE ~07/2019 (5 YRS, 7 MONTHS) ; FLARE UP AFTER 1-MONTH HOSPITAL STAY FOR COLITIS 10/2024 (3 MONTHS[place] [place] NKI XRAY TODAY, 02/12/25 IN EPIC MRI 04/29/21 IN EXA MRI 07/22/20 @[facility] 03/26/21 HX (R) SA CORTISONE INJECTION [...] the month. F/U after appt with her Reefer Engineer to discuss possible SA injection. Questions answered in laymen terms at the bedside. The diagnosis, home exercise plan and any ongoing restrictions/ recommendations reviewed. If unable to be reached in office, I recommend evaluation at nearest Emergency Room if any symptoms worsened or new symptoms develop for requiring urgent evaluation. Visit was preformed using [employer]-quality controller speech recognition. documented in this encounterPerry County Memorial HospitalDzaqywyryf33-83-9472 History of Present illness Narrative* Bryce Hendrickson MD - 01/30/2025 9:30 AM EDT HPI Patient is in the office for follow-up for history of LV systolic dysfunction with mitral regurgitation and with history of essential hypertension. She was in the hospital October 2024 at [facility] withsepsis and multiorgan failure and requiring intubation mechanical ventilation with ongoing colitis as well. During that admission she was seen by cardiology with indication of severe LV systolic dysfunction ejection fraction was down to 25%. The patient since has recovered and spent 5 weeks in fdc and now she is walking with a [...] dysfunction, echocardiogram October 2024 as inpatient and [facility] initially showed EF of 25% with slight [...] content normal. Judgment: Judgment normal. Allergies Penicillins, Idcwgfl-ilk-acj reductase inhibitors, and Atorvastatin Current Medications Current [...] exam, discussion and plan. documented in this [facility] Work Phone: [phone] Instructions* Patient Instructions* Pari Teague LPN - [...] Care Everywhere. * Body Mass Index, Adult (Filipino) documented in this [facility] Work Phone: 1([phone] 524-997807-03-2025 Evaluation note* Diagnosis Onset Date Resolution Status [...] 2024 4:07pmAcute kidney injury resolvedSeptember 2024 4:07pm [facility] Work Phone: [phone] Evaluation note* Diagnosis Onset Date Resolution Status [...] agreement existsacuteSept2024 11:36amUnsteady gait when walkingacuteSept2024 11:36am [facility] Work Phone: [phone] 203-821407-03-2025 Radiology Diagnostic study [facility] [place] [address] [place] [address] CT Scan Report Signed Patient: Renuka Owen MR#: [id number] : 1950 Acct:[id number] Age/Sex: 73 / F ADM Date: 5 Loc: ER Room: Type: [facility] ER Attending Dr: Copies to: Regina Garcia [...] Saravia M.D. 11/02/2024 1:38 PM Dictation Location: [facility] Transcribed By: BJORN 11/02/248 Dictated By: Samuel Saravia MD 11/02/241332 Signed By: 11/02/241337 [facility] Work Phone: 1(910) 395-999607-03-2025 Radiology Diagnostic [facility] [place] [address] [place] [address] CT Scan Report Signed Patient: Renuka Owen MR#: [id number] : 1950 Acct:[id number] Age/Sex: 73 / F ADM Date: 5 Loc: ER Room: Type: [facility] ER Attending Dr: Copies to: Regina Garcia [...] Saravia M.D. 11/02/2024 1:33 PM Dictation Location: [facility] Transcribed By: BJORN 11/02/241332 Dictated By: Samuel Saravia MD 11/02/241330 Signed By: 11/02/241332 [facility] [place] [facility] Work Phone: [phone] History of Present illness Narrative* Bran Linda [...] since progressed to her ankles. She experiences bnfd-yrl-qmayqio and burning sensations in her left heel [...] Shoulder shrug normal. Motor Examination Strength: Hand senior electrical design engineer strength normal. Lower limb strength normal. Sensory [...] in all four extremities, including at least senior electrical design engineer, finger abductors, biceps, triceps, deltoid, toe flexors [...] 12. This clinical note was created utilizing [employer] documentation system. All information has been thoroughly reviewed, corrected as necessary, and authenticated by the provider to ensure accuracy and completeness. On occasion, [employer] documentation system erroneously drops words or replaces a spoken word with a similar sounding word. Please notify with any questions or concerns regarding this clinical note. documented in this encounterPerry County Memorial HospitalAkwkmfnkhh41-13-0073 History of Present illness Narrative* Tamy Khan [...] Skechers footwear for activities, particularly walking at [place]. Notes swelling towards the end of [...] LUMBAR FUSION 04/01/2022 L4-L5 MASTECTOMY Left 2011 MT ARTHROSCOPY KNEE DIAGNOSTIC W/WO SYNOVIAL BX SPX 1994 MT ARTHROSCOPY KNEE DIAGNOSTIC W/WO SYNOVIAL BX SPX [...] understanding. Tamy Khan DPM documented in this encounterPerry County Memorial HospitalAvhjwtdxqq60-76-7559 Instructions* Patient Instructions* Tamy Khan DPM - 09/28/2024 10:15 AM EDT As noted documented in this encounterPerry County Memorial HospitalUuorvwaqca56-04-1770 History of Present illness Narrative* Tamy Khan [...] LUMBAR FUSION 04/01/2022 L4-L5 MASTECTOMY Left 2011 MT ARTHROSCOPY KNEE DIAGNOSTIC W/WO SYNOVIAL BX SPX 1994 MT ARTHROSCOPY KNEE DIAGNOSTIC W/WO SYNOVIAL BX SPX [...] understanding. Tamy Khan DPM documented in this encounterPerry County Memorial HospitalTyknvkcivs74-77-2924 Evaluation note* Diagnosis Onset Date Resolution Status [...] mental statusacuteJuly 2024 3:00pm PancolitisacuteJuly 2024 3:00pm [facility] Work Phone: [phone] 900-812405-05-2025 Evaluation note* Diagnosis Onset Date Resolution Status [...] ICU syndromeacuteJuly 2024 3:00pmSeptic shockacuteJuly 2024 3:00pm [facility] Work Phone: [phone] Evaluation note* Diagnosis Onset Date Resolution Status [...] 6:25pm PancolitisresolvedJuly 2024 6:25pmSeptic shockresolvedJuly 2024 6:25pm [facility] Work Phone: [phone] NoteHNO ID: [id number] Author: JACOB MERCADO MD Service: ? Author [...] Value 08/21/2024 34.2 1 (more content not included)...[facility]04-20-2025 History of Present illness Narrative* Jacob [...] 308 RADIOLOGY/OTHER STUDIES: 02/14/2024 Diagnostic right mammogram ([facility]) Benign finding. No change from comparison. Recommend routine mammogram in 12 months. 02/08/2023 Diagnostic right mammogram ([facility]) Benign finding. No change from comparison. Recommend routine mammogram in 12 months. 05/10/2022 Chest CTA ([facility]) No evidence for acute pulmonary embolism, thoracic aortic aneurysm, or aortic dissection. Mild cardiomegaly with trace 3 mm thick pericardial effusion. Mosaic attenuation of the bilateral lungs reflect sequelae of reactive airway inflammation. Moderate bilateral upper and lower lung linear scar. 04/08/2020 CT abdomen/pelvis ([facility]). 6.4 x 3.3 cm soft tissue [...] advanced left breast cancer diagnosed March 2011. ER/MT negative, HER-2 negative (triplenegative). Status post preop [...] presacral space. The patient was referred to [facility] colorectal surgery (Dr. Lorenzo) and underwent surgical [...] CC: Dr. Jairo Jacob documented in this encounterK[facility]-2025 Evaluation note* Diagnosis Onset Date Resolution Status [...] 2024 10:26amLeft knee painnoneactive May 2024 10:26am [facility] Work Phone: [phone] Telephone encounter Note* Telephone Encounter - Chuck Cope MD - 07/03/2024 12:07 PM EST prn [facility] Zpvptkaffg21-18-6727 Miscellaneous Notes* Telephone Encounter - Chuck Cope MD - 07/03/2024 12:07 PM EST prn * Telephone Encounter - Megan Church - 07/03/2024 9:21 AM EST pt cld 07/03/24 to cancel 07/18 appt -did not get CT scan done and has had alot of rehab she needs to finish will call to r/s later documented in this encounterPerry County Memorial HospitalEhmmzlcvmd03-05-5607 Telephone encounter Note* Telephone Encounter - Megan Church - 07/03/2024 9:21 AM EST pt cld 07/03/24 to cancel 07/18 appt -did not get CT scan done and has had alot of rehab she needs to finish will call to r/s later [facility] Memorial HospitalRuzlxvqveh96-06-5326 Evaluation note* Diagnosis Onset Date Resolution Status [...] existsacutey 2024 10:26amLeft knee painnoneactiveMay 2024 10:26am [facility] Work Phone: 1([phone] Consult note Author Jared Louis [facility] TownshipNote Date/TimeFebruary 2024 11:35am [place] [address] Physiatry (Rehab) Consult Note Signed Patient: Renuka Owen MR#: [id number] : 1950 Acct:[id number] Age/Sex: 73 / F Adm Date: 5 Loc: Room: [address] [place] [address] Type: ADM IN Attending Dr: Landon Whitfield [...] She was hoping to go to the [facility] in [place] but they did not have a bed available. She is now looking to possibly come to inpatient rehab. Review of Systems Review of Systems All other systems reviewed & are negative unless noted below or in HPI [facility] Medical History Chronic kidney disease Unsteady gait [...] Calcium 8.7 Magnesium 1.7 L Assessment/Plan (1) Xwoyt-lj-sjxaics kidney injury: (2) Unsteady gait when walking: [...] Patient was personally seen by me, Dr. Lousi, on the day of encounter, reviewed the history and the relevant portions of the chart, including current orders, allied health and professional services consultant notes, labs/imaging and performed butts elements of exam and I formulated the plan of care and facilitated the medical decision making. I completed a substantive portion of this encounter, the medical decision makingportion of this note in its entirety, including Allied health note review, nursing note review, professional services consultant note review,discussion with nursing and case management, and more than 50% of my time was spent on counseling and coordination of care, time spent 60 minutes Documented By: Jared Louis MD 929 Signed By: <Electronically signed by Jared Louis MD> 06/05/24 1135 [facility] Work Phone: 1([phone]) 758-756602-03-2025 Progress note Author Sheringinny Arellano [facility] TownshipNote Date/TimeFebruary 2024 10:42am [place] [address] Nephrology Progress Note Signed Patient: Renuka Owen MR#: [id number] : 1950 Acct:[id number] Age/Sex: 73 / F Adm Date: 5 Loc: Room: [address] [place] [address] Type: ADM IN Attending Dr: Landon Whitfield MD Copies to: ~ Date of Service: 06/05/2024 Subjective Subjective Narrative: This is a 73-year-old female with medical history of CKD, anemia, orthostatic hypotension, mitral regurgitation, HFrEF, HTN, cervical spondylosis was presented to the emergency room after mechanical fall. Patient was recently admitted at [facility] [place] for LATANYA and was seen by our [...] Skin: No rashes , warm to touch PARTY SUPPLY SPECIALIST: Awake,Alert, following simple command Musculoskeletal: No swelling [...] 81 Mg Tablet.) 81 mg PO DAILY [facility] Stop: 06/02/25 08:59 Last Admin: 06/05/24 09:41 Dose: 81 mg Baclofen (Baclofen 20 Mg Tablet) 20 mg PO QPM [facility] Stop: 06/04/25 20:59 Last Admin: 06/04/24 20:14 Dose: 20 mg Carvedilol (Carvedilol 3.125 Mg Tablet) 3.125 mg PO BID.WITH.MEALS [facility] Stop: 06/04/25 16:59 Last Admin: 06/05/24 09:41 Dose: 3.125 mg Diphenhydramine HCl (Diphenhydramine 50 Mg/Ml Vial) 25 mg IV-PUSH QHS PRN PRN Reason: Insomnia refractory to baclofen/trazadone Stop: 06/04/25 21:59 Enoxaparin Sodium (Enoxaparin 30 Mg/0.3 Ml Syringe) 30 mg SUBCUT DAILY@10 [facility] Stop: 06/02/25 09:59 Last Admin: 06/05/24 09:42 Dose: 30 mg Fluticasone Propionate (Fluticasone Propionate [place] 120 [place]/16 Gm Bottle) 2 spray NARES-BOTH DAILY PRN PRN Reason: NASAL CONGESTION Stop: 06/02/25 08:59 Last Admin: 06/03/24 11:32 Dose: 2 spray Gabapentin (Gabapentin 600 Mg Tablet) 600 mg PO TID [facility] Stop: 06/03/25 13:59 Last Admin: 06/05/24 09:42 Dose: 600 mg Montelukast Sodium (Montelukast 10 Mg Tablet) 10 mg PO [facility] Stop: 06/01/25 21:59 Last Admin: 06/04/24 20:14 Dose: 10 mg Pantoprazole Sodium (Pantoprazole 40 Mg Tablet.) 40 mg PO BID.AC.BKFAST.SUPPER [facility] Stop: 06/02/25 07:29 Last Admin: 06/05/24 06:13 Dose: 40 mg Sodium Chloride (Sodium Chloride 0.9 % 10 Ml Syringe) 0 ml IV-PUSH PRN PRN PRN Reason: Flush Stop: 06/01/25 11:38 Last Admin: 06/01/24 12:07 Dose: 10 ml Torsemide (Torsemide 20 Mg Tablet) 20 mg PO DAILY@0800 [facility] Stop: 06/05/25 07:59 Last Admin: 06/05/24 09:42 Dose: 20 mg Trazodone HCl (Trazodone 100 Mg Tablet) 100 mg PO [facility] Stop: 06/04/25 19:59 Last Admin: 06/04/24 20:14 [...] where applicable. A&P - Nephrology Assessment/Plan (1) Lexjo-ia-yyeoaqw kidney injury: Assessment/Problem Details: She has LATANYA [...] signed by Sherin Arellano MD> 06/05/24 1042 [facility] Work Phone: 1([phone]) 361-563202-03-2025 [place] [address] Physiatry (Rehab) Consult Note Signed Patient: Renuka Owen MR#: [id number] : 1950 Acct:[id number] Age/Sex: 73 / F Adm Date: 5 Loc: Room: [address] [place] [address] Type: ADM IN Attending Dr: Landon Whitfield [...] She was hoping to go to the [facility] in [place] but they did not have a bed available. She is now looking to possibly come to inpatient rehab. Review of Systems Review of Systems All other systems reviewed & are negative unless noted below or in HPI [facility] Medical History Chronic kidney disease Unsteady gait [...] Calcium 8.7 Magnesium 1.7 L Assessment/Plan (1) Jexma-tx-osxmljp kidney injury: (2) Unsteady gait when walking: [...] chart, including current orders, allied health and professional services consultant notes, labs/imaging and performed butts elements of exam and I formulated the plan of care and facilitated the medical decision making. I completed a substantive portion of this encounter, the medical decision makingportion of this note in its entirety, including Allied health note review, nursing note review, professional services consultant note review,discussion with nursing and case management, and more than 50% of my time was spent on counseling and coordination of care, time spent 60 minutes Documented By: Jared Louis MD 929 Signed By: 06/05/24 1135 [facility] [place] [facility]02-03-2025 [place] [address] Nephrology Progress Note Signed Patient: Renuka Owen MR#: [id number] : 1950 Acct:[id number] Age/Sex: 73 / F Adm Date: 5 Loc: Room: [address] [place] [address] Type: ADM IN Attending Dr: Landon Whitfield MD Copies to: ~ Date of Service: 06/05/2024 Subjective Subjective Narrative: This is a 73-year-old female with medical history of CKD, anemia, orthostatic hypotension, mitral regurgitation, HFrEF, HTN, cervical spondylosis was presented to the emergency room after mechanical fall. Patient was recently admitted at [facility] [place] for LATANYA and was seen by our [...] Skin: No rashes , warm to touch PARTY SUPPLY SPECIALIST: Awake,Alert, following simple command Musculoskeletal: No swelling [...] 81 Mg Tablet.) 81 mg PO DAILY [facility] Stop: 06/02/25 08:59 Last Admin: 06/05/24 09:41 Dose: 81 mg Baclofen (Baclofen 20 Mg Tablet) 20 mg PO QPM [facility] Stop: 06/04/25 20:59 Last Admin: 06/04/24 20:14 Dose: 20 mg Carvedilol (Carvedilol 3.125 Mg Tablet) 3.125 mg PO BID.WITH.MEALS [facility] Stop: 06/04/25 16:59 Last Admin: 06/05/24 09:41 Dose: 3.125 mg Diphenhydramine HCl (Diphenhydramine 50 Mg/Ml Vial) 25 mg IV-PUSH QHS PRN PRN Reason: Insomnia refractory to baclofen/trazadone Stop: 06/04/25 21:59 Enoxaparin Sodium (Enoxaparin 30 Mg/0.3 Ml Syringe) 30 mg SUBCUT DAILY@10 [facility] Stop: 06/02/25 09:59 Last Admin: 06/05/24 09:42 Dose: 30 mg Fluticasone Propionate (Fluticasone Propionate [place] 120 [place]/16 Gm Bottle) 2 spray NARES-BOTH DAILY PRN PRN Reason: NASAL CONGESTION Stop: 06/02/25 08:59 Last Admin: 06/03/24 11:32 Dose: 2 spray Gabapentin (Gabapentin 600 Mg Tablet) 600 mg PO TID [facility] Stop: 06/03/25 13:59 Last Admin: 06/05/24 09:42 Dose: 600 mg Montelukast Sodium (Montelukast 10 Mg Tablet) 10 mg PO [facility] Stop: 06/01/25 21:59 Last Admin: 06/04/24 20:14 Dose: 10 mg Pantoprazole Sodium (Pantoprazole 40 Mg Tablet.) 40 mg PO BID.AC.BKFAST.SUPPER [facility] Stop: 06/02/25 07:29 Last Admin: 06/05/24 06:13 Dose: 40 mg Sodium Chloride (Sodium Chloride 0.9 % 10 Ml Syringe) 0 ml IV-PUSH PRN PRN PRN Reason: Flush Stop: 06/01/25 11:38 Last Admin: 06/01/24 12:07 Dose: 10 ml Torsemide (Torsemide 20 Mg Tablet) 20 mg PO DAILY@0800 [facility] Stop: 06/05/25 07:59 Last Admin: 06/05/24 09:42 Dose: 20 mg Trazodone HCl (Trazodone 100 Mg Tablet) 100 mg PO [facility] Stop: 06/04/25 19:59 Last Admin: 06/04/24 20:14 [...] where applicable. A&P - Nephrology Assessment/Plan (1) Dmale-lw-aqcebei kidney injury: Assessment/Problem Details: She has LATANYA [...] MD 06/05/24 1041 Signed By: 06/05/24 1042 [facility] [place] [facility]02-02-2025 Progress note Author Isaiah Mejia [facility] TownshipNote Date/TimeFebruary 2024 8:00pm [place] [address] Hospitalist Progress Note Signed Patient: Renuka Owen MR#: [id number] : 1950 Acct:[id number] Age/Sex: 73 / F Adm Date: 5 Loc: Room: 8B2932-6 Type: ADM IN Attending Dr: Isaiah Mejia [...] and she is agreeable and looking at group home facilities at discharge. Medically she will [...] spray 06/02/24 09:00 06/03/24 11:32 Fluticasone Propionate [place] 120 [place]/16 Gm Bottle NARES-BOTH 06/02/25 08:59 2 spray [...] HS JUSTYN A&P - Hospitalist Assessment/Plan (1) Unfhd-zl-pjnufss kidney injury: (2) Contusion: (3) Generalized weakness: Plan . Documented By: Isaiah Mejia DO 06/04/24 19 52 Signed By: <Electronically signed by Isaiah Mejia DO> 06/04/241999 [facility] Work Phone: 1(452) 307-564002-02-2025 Progress note Author Isaiah Mejia [facility] TownshipNote Date/TimeFebruary 2024 7:52pm [place] [id number] Hospitalist Progress Note Signed Patient: Renuka Owen MR#: [id number] : 1950 Acct:[id number] Age/Sex: 73 / F Adm Date: 01/30/2 5 Loc: 3T Room: 8B2507-5 Type: ADM IN Attending Dr: Isaiah Mejia [...] mastectomy, and cholecystectomy who initially presented to [facility] [place] [facility] on 06/01/24 for concerns regarding a fall [...] Propionate 2 spray 06/02/24 09:00 Fluticasone Propionate [place] 120 [place]/16 Gm Bottle NARES-BOTH 06/02/25 08:59 DAILY PRN [...] JUSTYN Administration A&P - Hospitalist Assessment/Plan (1) Rmonz-li-ehflpho kidney injury: (2) Contusion: (3) Generalized weakness: Plan . <Statement entered by Isaiah Mejia DO - 06/04/24 19:52> I personally saw and examined patient at bedside today. Case was discussed and coordinated in conjunction with medical review specialist. I agree with management as noted therein. [...] signed by MD AMBER Carver> 06/03/24 1034 [facility] Work Phone: 1(289) 789-667202-02-2025 History and physical note Author Isaiah Mejia [facility] Date/TimeFebruary 2024 7:50pm [place] [address] Hospitalist H&P Signed Patient: Renuka Owen MR#: [id number] : 1950 Acct:[id number] Age/Sex: 73 / F Adm Date: 5 Loc: Room: [address] [place] [address] Type: ADM IN Attending Dr: Isaiah Mejia [...] mastectomy, and cholecystectomy who initially presented to [facility] [place] [facility] on 06/01/24 for concerns regarding a fall [...] negative unless noted below or in HPI [facility] Medical History Chronic kidney disease Unsteady gait [...] % (Auto) 10.3 % (.) 06/01/24 12:05 [place] % (Auto) 7.2 % (.) 06/01/24 12:05 Eos % (Auto) 2.3 % (.) 06/01/24 12:05 Baso % (Auto) 0.5 % (.) 06/01/24 12:05 Nucleat RBC Rel Count 0.1 /100 WBC (0-0.5) 06/01/24 12:05 Neut # (Auto) 7.5 x10E3/uL (1.8-7.7) 06/01/24 12:05 Lymph # (Auto) 1.0 x10E3/uL (1.00-4.8) 06/01/24 12:05 [place] # (Auto) 0.7 x10E3/uL (0.0-0.8) 06/01/24 12:05 [...] 06/01/24 12:05 Assessment & Plan Assessment/Plan (1) Twltg-cr-wwjlopr kidney injury: (2) Contusion: (3) Generalized weakness: [...] Case was discussed coordinated conjunction with medical review specialist. I agree with management as noted therein. [...] <Electronically signed by MD AMBER Carver> 06/01/[address] [place] [address] Work Phone: 1(517) 188-882302-02-2025 [place] [address] Hospitalist Progress Note Signed Patient: Renuka Owen MR#: [id number] : 1950 Acct:[id number] Age/Sex: 73 / F Adm Date: 5 Loc: Room: [address] [place] [address] Type: ADM IN Attending Dr: Isaiah Mejia [...] and she is agreeable and looking at group home facilities at discharge. Medically she will [...] spray 06/02/24 09:00 06/03/24 11:32 Fluticasone Propionate [place] 120 [place]/16 Gm Bottle NARES-BOTH 06/02/25 08:59 2 spray [...] HS JUSTYN A&P - Hospitalist Assessment/Plan (1) Cgakp-uy-fnkuvhd kidney injury: (2) Contusion: (3) Generalized weakness: Plan . Documented By: Isaiah Mejia DO 06/04/24 19 52 Signed By: 06/04/[address] [place], [place] 1732502-02-2025 [place] [address] Hospitalist Progress Note Signed Patient: Renuka Owen MR#: [id number] : 1950 Acct:[id number] Age/Sex: 73 / F Adm Date: 5 Loc: Room: [address] [place] [address] Type: ADM IN Attending Dr: Isaiah Mejia [...] mastectomy, and cholecystectomy who initially presented to [facility] [place] [facility] on 06/01/24 for concerns regarding a fall [...] Propionate 2 spray 06/02/24 09:00 Fluticasone Propionate [place] 120 [place]/16 Gm Bottle NARES-BOTH 06/02/25 08:59 DAILY PRN [...] JUSTYN Administration A&P - Hospitalist Assessment/Plan (1) Lumog-xd-qrmqztb kidney injury: (2) Contusion: (3) Generalized weakness: Plan . I personally saw and examined patient at bedside today. Case was discussed and coordinated in conjunction with medical review specialist. I agree with management as noted therein. Nephrology will be consulted to assist in hypertensive and diuretic management. Maintain IV fluid hydration and resume medications gradually as tolerated as undoubtedly has need for GDMT for reduced ejection fraction heart failure will have some diuretic needed at baseline to be titrated gradually. Documented By: Isaiah Mejia DO 06/03/2402 27 Signed By: 06/04/24195106/03/24 1034 [facility] [place] [facility]02-02-2025 [place] [address] Hospitalist H&P Signed Patient: Renuka Owen MR#: [id number] : 1950 Acct:[id number] Age/Sex: 73 / F Adm Date: 5 Loc: Room: [address] [place] [address] Type: ADM IN Attending Dr: Isaiah Mejia [...] mastectomy, and cholecystectomy who initially presented to [facility] [place] [facility] on 06/01/24 for concerns regarding a fall [...] negative unless noted below or in HPI [facility] Medical History Chronic kidney disease Unsteady gait [...] % (Auto) 10.3 % (.) 06/01/24 12:05 [place] % (Auto) 7.2 % (.) 06/01/24 12:05 Eos % (Auto) 2.3 % (.) 06/01/24 12:05 Baso % (Auto) 0.5 % (.) 06/01/24 12:05 Nucleat RBC Rel Count 0.1 /100 WBC (0-0.5) 06/01/24 12:05 Neut # (Auto) 7.5 x10E3/uL (1.8-7.7) 06/01/24 12:05 Lymph # (Auto) 1.0 x10E3/uL (1.00-4.8) 06/01/24 12:05 [place] # (Auto) 0.7 x10E3/uL (0.0-0.8) 06/01/24 12:05 [...] 06/01/24 12:05 Assessment & Plan Assessment/Plan (1) Aczmh-mj-jhzlbpg kidney injury: (2) Contusion: (3) Generalized weakness: [...] Case was discussed coordinated conjunction with medical review specialist. I agree with management as noted therein. [...] 14 39 Signed By: 06/04/24 1951 06/01/24 5539 [facility] [place] [facility]02-02-2025 Progress note Author Sherin Arellano [facility]Note Date/TimeFebruary 2024 11:36am [place] [address] Nephrology Progress Note Signed Patient: Renuka Owen MR#: [id number] : 1950 Acct:[id number] Age/Sex: 73 / F Adm Date: Loc: Room: [address] [place] [address] Type: ADM IN Attending Dr: Isaiah Mejia DO Copies to: ~ Date of Service: 06/04/2024 Subjective Subjective Narrative: This is a 73-year-old female with medical history of CKD, anemia, orthostatic hypotension, mitral regurgitation, HFrEF, HTN, cervical spondylosis was presented to the emergency room after mechanical fall. Patient was recently admitted at [facility] [place] [facility] for LATANYA and was seen by our [...] Skin: No rashes , warm to touch PARTY SUPPLY SPECIALIST: Awake,Alert, following simple command Musculoskeletal: No swelling [...] 81 Mg Tablet.Dr) 81 mg PO DAILY [facility] Stop: 06/02/25 08:59 Last Admin: 06/04/24 08:24 Dose: 81 mg Baclofen (Baclofen 20 Mg Tablet) 20 mg PO QHS [facility] Stop: 06/03/25 21:59 Last Admin: 06/03/24 21:23 Dose: 20 mg Carvedilol (Carvedilol 6.25 Mg Tablet) 6.25 mg PO BID.WITH.MEALS [facility] Stop: 06/04/25 10:59 Last Admin: 06/04/24 11:23 Dose: 6.25 mg Enoxaparin Sodium (Enoxaparin 30 Mg/0.3 Ml Syringe) 30 mg SUBCUT DAILY@10 [facility] Stop: 06/02/25 09:59 Last Admin: 06/04/24 09:50 Dose: Not Given Fluticasone Propionate (Fluticasone Propionate [place] 120 [place]/16 Gm Bottle) 2 spray NARES-BOTH DAILY PRN PRN Reason: NASAL CONGESTION Stop: 06/02/25 08:59 Last Admin: 06/03/24 11:32 Dose: 2 spray Gabapentin (Gabapentin 600 Mg Tablet) 600 mg PO TID [facility] Stop: 06/03/25 13:59 Last Admin: 06/04/24 08:24 Dose: 600 mg Melatonin (Melatonin 5 Mg Tablet) 10 mg PO QHS PRN PRN Reason: Sleep Stop: 06/01/25 18:00 Last Admin: 06/03/24 20:52 Dose: 10 mg Montelukast Sodium (Montelukast 10 Mg Tablet) 10 mg PO HS [facility] Stop: 06/01/25 21:59 Last Admin: 06/03/24 20:52 Dose: 10 mg Pantoprazole Sodium (Pantoprazole 40 Mg Tablet.) 40 mg PO BID.AC.BKFAST.SUPPER [facility] Stop: 06/02/25 07:29 Last Admin: [...] where applicable. A&P - Nephrology Assessment/Plan (1) Mhrus-bb-vgwddyc kidney injury: Assessment/Problem Details: She has LATANYA [...] signed by Sherin Arellano MD> 06/04/24 1136 [facility] Work Phone: 1(439) 497-687502-02-2025 [place] [address] Nephrology Progress Note Signed Patient: Renuka Owen MR#: [id number] : 1950 Acct:[id number] Age/Sex: 73 / F Adm Date: 5 Loc: Room: [address] [place] [address] Type: ADM IN Attending Dr: Isaiah Mejia DO Copies to: ~ Date of Service: 06/04/2024 Subjective Subjective Narrative: This is a 73-year-old female with medical history of CKD, anemia, orthostatic hypotension, mitral regurgitation, HFrEF, HTN, cervical spondylosis was presented to the emergency room after mechanical fall. Patient was recently admitted at [facility] [place] [facility] for LATANYA and was seen by our [...] Skin: No rashes , warm to touch PARTY SUPPLY SPECIALIST: Awake,Alert, following simple command Musculoskeletal: No swelling [...] 81 Mg Tablet.) 81 mg PO DAILY [facility] Stop: 06/02/25 08:59 Last Admin: 06/04/24 08:24 Dose: 81 mg Baclofen (Baclofen 20 Mg Tablet) 20 mg PO QHS [facility] Stop: 06/03/25 21:59 Last Admin: 06/03/24 21:23 Dose: 20 mg Carvedilol (Carvedilol 6.25 Mg Tablet) 6.25 mg PO BID.WITH.MEALS [facility] Stop: 06/04/25 10:59 Last Admin: 06/04/24 11:23 Dose: 6.25 mg Enoxaparin Sodium (Enoxaparin 30 Mg/0.3 Ml Syringe) 30 mg SUBCUT DAILY@10 [facility] Stop: 06/02/25 09:59 Last Admin: 06/04/24 09:50 Dose: Not Given Fluticasone Propionate (Fluticasone Propionate [place] 120 [place]/16 Gm Bottle) 2 spray NARES-BOTH DAILY PRN [...] 10 Mg Tablet) 10 mg PO HS [facility] Stop: 06/01/25 21:59 Last Admin: 06/03/24 20:52 Dose: 10 mg Pantoprazole Sodium (Pantoprazole 40 Mg Tablet.) 40 mg PO BID.AC.BKFAST.SUPPER [facility] Stop: 06/02/25 07:29 Last Admin: 06/04/24 05:32 Dose: 40 mg Sodium Chloride (Sodium Chloride 0.9 % 10 Ml Syringe) 0 ml IV-PUSH PRN PRN PRN Reason: Flush Stop: 06/01/25 11:38 Last Admin: 06/01/24 12:07 Dose: 10 ml Trazodone HCl (Trazodone 50 Mg Tablet) 50 mg PO [facility] Stop: 06/01/25 21:59 Last Admin: 06/03/24 20:52 [...] where applicable. A&P - Nephrology Assessment/Plan (1) Tsuxk-pj-eysiuml kidney injury: Assessment/Problem Details: She has LATANYA [...] Arellano MD 06/04/241130 Signed By: 06/04/24 1136 [facility] [place] [facility]02-01-2025 Consult note Author Sherin Arellano [facility] Date/TimeFebruary 2024 10:33am [place] [address] Nephrology Consult Note Signed Patient: Renuka Owen MR#: [id number] : 1950 Acct:[id number] Age/Sex: 73 / F Adm Date: 5 Loc: Room: [address] [place] [address] Type: ADM IN Attending Dr: Isaiah Mejia [...] mechanical fall. Patient was recently admitted at [facility] [place] [facility] for LATANYA and was seen by our [...] polydipsia Dermatological: denies any itching or rash [facility] Medical History Chronic kidney disease Unsteady gait [...] Dose: 30 mg Fluticasone Propionate (Fluticasone Propionate [place] 120 [place]/16 Gm Bottle) 2 spray NARES-BOTH DAILY PRN [...] (Trazodone 50 Mg Tablet) 50 mg PO [facility] Stop: 06/01/25 21:59 Last Admin: 06/02/24 20:42 [...] Skin: No rashes , warm to touch PARTY SUPPLY SPECIALIST: Awake,Alert, following simple command Musculoskeletal: No swelling [...] where applicable. A&P - Nephrology Assessment/Plan (1) Kdffp-bc-eyiqfmp kidney injury: Assessment/Problem Details: She has LATANYA [...] <Electronically signed by Sherin Arellano MD> 06/03/24 [facility]8 [facility] Work Phone: 1(104) 487-284102-01-2025 Radiology Diagnostic study [facility] [place] [address] [place] [address] Ultrasound Report Signed Patient: Renuka Owen MR#: [id number] : 1950 Acct:[id number] Age/Sex: 73 / F ADM Date: 5 Loc: Room: [address] [place] [address] Type: ADM IN Attending Dr: Isaiah Mejia [...] Vo Jr., D.O.06/03/2024 11:19 AM Dictation Location: [facility]-18 Tech: Cristiana Torrez Transcribed By: BJORN 06/03/241118 Dictated By: Saman Vo Jr, DO 06/03/24 111 Signed By: 06/03/24 1119 [facility] [place] [facility]02-01-2025 [place] [address] Nephrology Consult Note Signed Patient: Renuka Owen MR#: [id number] : 1950 Acct:[id number] Age/Sex: 73 / F Adm Date: 5 Loc: Room: [address] [place] [address] Type: ADM IN Attending Dr: Isaiah Mejia [...] mechanical fall. Patient was recently admitted at [facility] [place] [facility] for LATANYA and was seen by our [...] 81 Mg Tablet.) 81 mg PO DAILY [facility] Stop: 06/02/25 08:59 Last Admin: 06/03/24 08:08 Dose: 81 mg Enoxaparin Sodium (Enoxaparin 30 Mg/0.3 Ml Syringe) 30 mg SUBCUT DAILY@10 [facility] Stop: 06/02/25 09:59 Last Admin: 06/03/24 08:08 Dose: 30 mg Fluticasone Propionate (Fluticasone Propionate [place] 120 [place]/16 Gm Bottle) 2 spray NARES-BOTH DAILY PRN PRN Reason: NASAL CONGESTION Stop: 06/02/25 08:59 Sodium Chloride (0.9% Sodium Chloride 1,000 Ml) 1,000 mls @ 100 mls/hr IV .Q10H [facility] Stop: 06/01/25 13:44 Last Admin: 06/03/24 08:08 Dose: 100 mls/hr Melatonin (Melatonin 5 Mg Tablet) 10 mg PO QHS PRN PRN Reason: Sleep Stop: 06/01/25 18:00 Last Admin: 06/02/24 20:42 Dose: 10 mg Montelukast Sodium (Montelukast 10 Mg Tablet) 10 mg PO [facility] Stop: 06/01/25 21:59 Last Admin: 06/02/24 20:42 Dose: 10 mg Pantoprazole Sodium (Pantoprazole 40 Mg Tablet.) 40 mg PO BID.AC.BKFAST.SUPPER [facility] Stop: 06/02/25 07:29 Last Admin: 06/03/24 05:19 Dose: 40 mg Sodium Chloride (Sodium Chloride 0.9 % 10 Ml Syringe) 0 ml IV-PUSH PRN PRN PRN Reason: Flush Stop: 06/01/25 11:38 Last Admin: 06/01/24 12:07 Dose: 10 ml Trazodone HCl (Trazodone 50 Mg Tablet) 50 mg PO [facility] Stop: 06/01/25 21:59 Last Admin: 06/02/24 20:42 [...] Skin: No rashes , warm to touch PARTY SUPPLY SPECIALIST: Awake,Alert, following simple command Musculoskeletal: No swelling [...] where applicable. A&P - Nephrology Assessment/Plan (1) Oulcp-ng-nqijrvk kidney injury: Assessment/Problem Details: She has LATANYA [...] MD 06/03/24 0837 Signed By: 06/03/24 1033 [facility] [place] [facility]01-31-2025 Progress note Author Isaiah Mejia [facility] TownshipNote Date/TimeJanuary 2024 9:33pm [place] [address] Hospitalist Progress Note Signed Patient: Renuka Owen MR#: [id number] : 1950 Acct:[id number] Age/Sex: 73 / F Adm Date: 5 Loc: 3T Room: 2U2704-3 Type: ADM IN Attending Dr: Isaiah Mejia [...] mastectomy, and cholecystectomy who initially presented to [facility] [place] [facility] on 06/01/24 for concerns regarding a fall and LATANYA. Patient was seen and examined at bedside today. She states that she is feeling better and denies any new concerns today. She has been eating well although shehas had some difficulty sleeping due [facility] noise. She denies any headache, dizziness, [...] Propionate 2 spray 06/02/24 09:00 Fluticasone Propionate [place] 120 [place]/16 Gm Bottle NARES-BOTH 06/02/25 08:59 DAILY PRN [...] JUSTYN Administration A&P - Hospitalist Assessment/Plan (1) Lgwgb-gg-cgmoblr kidney injury: (2) Contusion: (3) Generalized weakness: Plan . <Statement entered by Isaiah Mejia DO - 06/02/24 21:33> I personally saw and examined the patient at the bedside this evening. Case wasdiscussed and coordinated in conjunction with medical review specialist and I agree with management as noted [...] By: <Electronically signed by Isaiah Mejia DO> 06/02/24 2133 <Electronically signed by MD AMBER Carver> 06/02/[address] [place] [address] Work Phone: 1(580) 550-476501-31-2025 [place] [address] Hospitalist Progress Note Signed Patient: Renuka Owen MR#: [id number] : 1950 Acct:[id number] Age/Sex: 73 / F Adm Date: 5 Loc: Room: [address] [place] [address] Type: ADM IN Attending Dr: Isaiah Mejia [...] mastectomy, and cholecystectomy who initially presented to [facility] [place] [facility] on 06/01/24 for concerns regarding a fall and LATANYA. Patient was seen and examined at bedside today. She states that she is feeling better and denies any new concerns today. She has been eating well although shehas had some difficulty sleeping due [facility] noise. She denies any headache, dizziness, [...] Propionate 2 spray 06/02/24 09:00 Fluticasone Propionate [place] 120 [place]/16 Gm Bottle NARES-BOTH 06/02/25 08:59 DAILY PRN [...] JUSTYN Administration A&P - Hospitalist Assessment/Plan (1) Qpbcn-tn-vlekvxr kidney injury: (2) Contusion: (3) Generalized weakness: Plan . I personally saw and examined the patient at the bedside this evening. Case wasdiscussed and coordinated in conjunction with medical review specialist and I agree with management as noted [...] 06/02/24 10 32 Signed By: 06/02/24213206/02/24 1037 [facility] [place] [facility]01-30-2025 Radiology Diagnostic study note [facility] [place] [address] [place] [address] CT Scan Report Signed Patient: Renuka Owen MR#: [id number] : 1950 Acct:[id number] Age/Sex: 73 / F ADM Date: 5 Loc: ER Room: Type: [facility] ER Attending Dr: Copies to: Regina Garcia [...] Vo Jr., D.O.06/01/2024 1:14 PM Dictation Location: [place] [address] Transcribed By: [facility] 06/01/24 1314 Dictated By: Saman Vo Jr, DO 06/01/24 1313 Signed By: 06/01/24 1314 [facility]01-27-2025 History of Present illness Narrative * Allen [...] laser capsulotomy, they are to notify their montessori toddler teacher promptly if they have a significant change [...] times during the day. documented in this encounterPerry County Memorial [id number] History of Present illness Narrative* Marce Khan, DPM - 05/16/2024 2:30 PM EST Images from the original note were not included. Subjective Patient ID: Renuka Owen is a 73 y.o. female who presents for Nail care ( Renuka Owen is a 73 y.o. female who presents for Nail Care.Patient relates she has been letting her nails grow longer so she could [place] them. Last visit 12/2022.). HPI This is [...] Medical History: Diagnosis Date Arthritis Breast cancer ([facility]) 2012 Cataract Cholelithiasis 1991 Chronic nonseasonal allergic rhinitis due to pollen Chronic tension headaches Dehydration GERD with esophagitis Glaucoma ([facility]) HTN (hypertension) ([facility]) Lumbar spondylosis Migraine ([facility]) Pain management 10/2015 Injections in [...] LUMBAR FUSION 04/01/2022 L4-L5 MASTECTOMY Left 2011 MT ARTHROSCOPY KNEE DIAGNOSTIC W/WO SYNOVIAL BX SPX 1994 MT ARTHROSCOPY KNEE DIAGNOSTIC W/WO SYNOVIAL BX SPX [...] utilizing a nail nipper and electric bur tankage grinder operator without incident. Patient noted relief of symptomatology [...] understanding. Marce Khan DPM documented in this encounterPerry County Memorial [id number] Evaluation note* Diagnosis Onset Date Resolution Status [...] 1:43pmUnsteady gait when walkingacute June 01, 2024 1:72skShhqe-bh-hewtiua kidney injuryresolvedJanuary 2024 1:43pmHypokalemiaresolvedJanuary 2024 1:43pmGeneralized weakness deletedJanuary 2024 1:43pmHistory of total left knee replacementacute June 29, 2024 9:30amPes anserinus bursitis of left kneeacuteFebruary 2024 9:30amAnemiaacutePremier Health [facility] 2024 1:18pmCervical spondylosis with radiculopathyacuteMarch 2024 1:18pmChronic HFrEF (heart failure with reduced ejection fraction)acutePrem[facility] 2024 1:18pmChronic kidney diseaseacute July 03, 2024 1:18pmChronic venous insufficiency of lower extremityacutePrem[facility] Health [facility] 2024 1:18pmHypertensionacuteIn[facility] 2024 1:18pmLumbar stenosis without neurogenic claudicationacuteInspira [facility] 2024 1:18pmLeft knee painnoneactivePremier Health [facility] 2024 1:18pm [facility] Work Phone: 1([phone]) 806-375501-10-2025 Evaluation note* Diagnosis Onset Date Resolution Status [...] 1:43pmUnsteady gait when walkingacute June 01, 2024 1:57csQfmwj-sf-mfkbbcd kidney injuryresolvedJanuary 2024 1:43pmHypokalemiaresolvedJanuary 2024 1:43pmGeneralized weakness deletedJanuary 2024 1:43pmHistory of total left knee replacementacute June 29, 2024 9:30amPes anserinus bursitis of left kneeacuteFebruary 2024 9:30amAnemiaacuteInspira Medical [facility] 2024 1:18pmCervical spondylosis with radiculopathyacuteInspira [facility] 2024 1:18pmChronic HFrEF (heart failure with reduced ejection fraction)[facility] 2024 1:18pmChronic kidney diseaseacute July 03, 2024 1:18pmChronic venous insufficiency of lower extremityacutePremier Health [facility] 2024 1:18pmHypertensionacuteMarch 2024 1:18pmLumbar stenosis without neurogenic claudicationacuteMarch 2024 1:18pmLeft knee painnoneactiveMarch 2024 1:18pmHistory of total left knee replacementacuteMar 2024 11:07amPes anserinus bursitis of left kneeacuteMarch 2024 11:07am [facility] Work Phone: 1(711) 708-312601-02-2025 History of Present illness Narrative* Bryce Hendrickson [...] content normal. Judgment: Judgment normal. Allergies Penicillins, Zkxwprw-jjg-blr reductase inhibitors, and Atorvastatin Current Medications Current [...] exam, discussion and plan. documented in this encounterFayette [facility] Hospital Work Phone: 1(145) 244-304801-02-2025 Instructions* Patient Instructions* Viji Denson LPN - [...] through Care Everywhere. * Heart Healthy Diet (Filipino) documented in this [facility] Work Phone: 1(274) 335-546112-03-2024 Evaluation note* Diagnosis Onset Date Resolution Status [...] 1:44pmUnsteady gait when walkingacuteMay 12, 2024 1:44pm [facility] Work Phone: 1(774) 884-332412-03-2024 Evaluation note* Diagnosis Onset Date Resolution Status [...] 12, 2024 1:44pmUnsteady gait when walkingacuteMayuary 2024 1:78ijNqweq-yx-uajxcaz kidney injuryacuteMayuary 2024 1:43pmAnemiaacute June 01, 2024 1:43pmChemotherapy-induced peripheral neuropathyacuteMayuary 2024 1:43pmChronic HFrEF (heart failure with reduced ejection fraction) acuteJanuary 2024 1:43pmChronic kidney diseaseacuteJanuary 2024 1:43pmContusionacuteMayuary 2024 1:43pmGeneralized weaknessacuteMayuary 2024 1:43pmHypertensionacuteMayuary 2024 1:43pmHypokalemiaacute June 01, 2024 1:43pmImpaired mobility and activities of daily livingacute June 01, 2024 1:43pmUnsteady gait when walkingacuteMayuary 2024 1:43pm [facility] Work Phone: 1(613) 403-633112-03-2024 Evaluation note* Diagnosis Onset Date Resolution Status [...] 12, 2024 1:44pmUnsteady gait when walkingacuteMayuary 2024 1:23deXjzti-sk-ceqyczw kidney injuryacuteJanuary 2024 1:43pmAnemiaacute June 01, 2024 1:43pmChemotherapy-induced peripheral neuropathyacuteMayuary 2024 1:43pmChronic HFrEF (heart failure with reduced ejection fraction) acuteJanuary 2024 1:43pmChronic kidney diseaseacuteJanuary 2024 1:43pmContusionacuteJanuary 2024 1:43pmGeneralized weaknessacuteMayuary 2024 1:43pmHypertensionacuteJanuary 2024 1:43pmImpaired mobility and activities of daily livingacuteMayuary 2024 1:43pmUnsteady gait when walkingacuteJanuary 2024 1:43pmHypokalemiaresolvedMayuary 2024 1:43pmHistory of total left knee replacementacuteFebruary 2024 9:30am [facility] Work Phone: 1(846) 125-133412-03-2024 Evaluation note* Diagnosis Onset Date Resolution Status [...] 12, 2024 1:44pmUnsteady gait when walkingacuteMayuary 2024 1:76jfKjlql-wv-kaikmcw kidney injuryacuteMayuary 2024 1:43pmAnemiaacute June 01, 2024 1:43pmChemotherapy-induced peripheral neuropathyacuteMayuary 2024 1:43pmChronic HFrEF (heart failure with reduced ejection fraction) acuteMayuary 2024 1:43pmChronic kidney diseaseacuteMayuary 2024 1:43pmContusionacuteMayuary 2024 1:43pmGeneralized weaknessacuteMayuary 2024 1:43pmHypertensionacuteMayuary 2024 1:43pmImpaired mobility and activities of daily livingacuteMayuary 2024 1:43pmUnsteady gait when walkingacuteMayuary 2024 1:43pmHypokalemiaresolvedMayuary 2024 1:43pmHistory of total left knee replacementacuteFebruary 2024 9:30amPes anserinus bursitis of left kneeacuteFebruary 2024 9:30am [facility] Work Phone: 1(638) 252-742112-03-2024 Evaluation note* Diagnosis Onset Date Resolution Status [...] 12, 2024 1:44pmUnsteady gait when walkingacuteMayuary 2024 1:30zqCbcyo-lj-xzmuaei kidney injuryacuteMayuary 2024 1:43pmAnemiaacute June 01, 2024 [...] 1:18pmLumbar stenosis without neurogenic claudicationacuteJulch 2024 1:18pm [facility] Work Phone: 1(479) 867-397511-26-2024 History of Present illness Narrative* Chuck Cope [...] LUMBAR FUSION 04/01/2022 L4-L5 MASTECTOMY Left 2011 MT ARTHROSCOPY KNEE DIAGNOSTIC W/WO SYNOVIAL BX SPX 1994 MT ARTHROSCOPY KNEE DIAGNOSTIC W/WO SYNOVIAL BX SPX [...] and plan surgical tx. documented in this [facility]11-26-2024 Miscellaneous Notes* Addendum Note - Michelle Abarca - 03/28/2024 9:00 AM ESTAddended by: MICHELLE ABARCA on: 03/28/2024 01:21 PM Modules accepted: Orders documented in this [facility]11-26-2024 Note* Addendum Note - Michelle Abarca - 03/28/2024 9:00 AM ESTAddended by: MICHELLE ABARCA on: 03/28/2024 01:21 PM Modules accepted: Orders [facility] Work Phone: 1(785) 748-881811-26-2024 Note* Addendum Note - Michelle Abarca - 03/28/2024 9:00 AM ESTAddended by: MICHELLE ABARCA on: 03/28/2024 01:21 PM Modules accepted: Orders [facility] Work Phone: 1(442) 511-600011-06-2024 History of Present illness Narrative* Chuck Cope [...] glaucoma (POAG) of both eyes, mild stage ([facility]) 02/26/2023 PCO (posterior capsular opacification), bilateral 02/26/2023 Keratoconjunctivitis sicca of both eyes not specified as Sjogren's 06/09/2023 Resolved Ambulatory Problems Diagnosis Date Noted Dry eyes 02/26/2023 Past Medical History: Diagnosis Date Arthritis Breast cancer ([facility]/HCC) 2012 Cataract Cholelithiasis 1991 Chronic nonseasonal allergic rhinitis due to pollen Chronic tension headaches Dehydration GERD with esophagitis Glaucoma ([facility]/HCC) HTN (hypertension) ([facility]) Lumbar spondylosis Migraine ([facility]) Pain management 10/2015 Past Surgical History: Procedure Laterality Date BACK SURGERY 1982 BREAST RECONSTRUCTION 2011 Procedure:post mastectomy radiation planned;Disease:left breast cancer CATARACT EXTRACTION 10/2021 and 12/2021 CHOLECYSTECTOMY 1976 Cholelithiasis HYSTERECTOMY 1990 KNEE ARTHROPLASTY Left 01/2007 Dr. Miranda KNEE ARTHROPLASTY 01/2007 Dr. Miranda LUMBAR DISCECTOMY 10/08/2021 L4 Sx LUMBAR FUSION 04/01/2022 L4-L5 MASTECTOMY Left 2011 MT ARTHROSCOPY KNEE DIAGNOSTIC W/WO SYNOVIAL BX SPX 1994 MT ARTHROSCOPY KNEE DIAGNOSTIC W/WO SYNOVIAL BX SPX [...] with the same regimen documented in this [facility]10-30-2024 Evaluation note* Diagnosis Onset Date [...] 1:44pmMitral regurgitationacute Miladys 2024 1:44pmOrthostatic hypotensionacuteJan2024 1:44pm [facility] Work Phone: 1(261) 113-534309-05-2024 Telephone encounter Note* Telephone Encounter - Triny Mart RN - 01/06/2024 11:44 AM EDT Pt calls to ask when her mammogram is due. Pt's record reviewed. Last Mamm done on 02/08/23 @ [facility]. 12 month f/u recommended. Order for Mamm faxed to [facility] on 06/22/23. Pt notified of the above. Advised she call [facility] to schedule. Pt verbalizes understanding and agrees. Triny Mart RN [facility] Work Phone: 1(234) 621-247309-05-2024 Miscellaneous Notes* Telephone Encounter - Triny Mart [...] agrees. Triny Mart RN documented in this [facility]08-[facility]-2024 [facility]03-14-2024 History of Present illness Narrative* rByce Hendrickson MD - 07/15/2023 10:30 AM EDT [...] being. She is compensated Bryce Hendrickson MD, [facility] Review of Systems All other systems [...] content normal. Judgment: Judgment normal. Allergies Penicillins, Onesqqr-spy-jyg reductase inhibitors, and Atorvastatin Current Medications Current [...] exam, discussion and plan. [facility] Work Phone: 1([phone] 496-970103-14-2024 Instructions* Patient Instructions* Tess Holcomb LPN - [...] Provided instructions on exercise. documented in [facility] Work Phone: 1(802) 986-617102-20-2024 History of Present illness Narrative* Jacob Mercado [...] 308 RADIOLOGY/OTHER STUDIES: 02/08/2023 Diagnostic right mammogram ([facility]) Benign finding. No change from comparison. Recommend routine mammogram in 12 months. 05/10/2022 Chest CTA ([facility]) No evidence for acute pulmonary embolism, thoracic aortic aneurysm, or aortic dissection. Mild cardiomegaly with trace 3 mm thick pericardial effusion. Mosaic attenuation of the bilateral lungs reflect sequelae of reactive airway inflammation. Moderate bilateral upper and lower lung linear scar. 04/08/2020 CT abdomen/pelvis ([facility]). 6.4 x 3.3 cm soft tissue [...] advanced left breast cancer diagnosed March 2011. ER/MT negative, HER-2 negative (triplenegative). Status post preop [...] presacral space. The patient was referred to [facility] colorectal surgery (Dr. Lorenzo) and underwent surgical [...] recommendations. Jacob Mercado MD documented in this encounterK[facility]01-24-2024 Evaluation note* Encounter Date Diagnosis Assessment Notes [...] have encouraged her to follow-up with a area manager. I will send her to therapy for gait training and leg strengthening. I reviewed the x-ray of the lumbar spine showing good bony alignment good hardware placement and shared these with the patient. I will see her again in 1 month. May,History of lumbar fusion (ICD-10 - Z98.1) May,oor balance (ICD-10 - R26.89) [facility] Other 01-05-2024 Evaluation note* Encounter Date Diagnosis Assessment Notes Treatment Notes Treatment Clinical Notes May, Acute bronchitis due to other sp ecified organisms (ICD-10 - J20.8) Instructed to use Robitussin or Mucinex for cough, saline or Flonase NS for congestion, Tylenol forpain and fever. No improvement, call for office visit. [facility] Other 12-28-2023 Evaluation note* Encounter Date Diagnosis Assessment Notes Treatment Notes Treatment Clinical Notes Apr, Acute bilateral low back pain wi thout sciatica (ICD-10 - M54.50) [facility] Other 12-28-2023 Evaluation note* Encounter Date Diagnosis [...] Apr,History of lumbar fusion (ICD-10 - Z98.1) [facility] Other 12-26-2023 Evaluation note* Encounter Date Diagnosis [...] Apr,History of lumbar fusion (ICD-10 - Z98.1) [facility] Other 12-18-2023 Progress note Author Saman Marino [facility] April 19, 2023 2:35pmNote Date/TimeDecember 2022 2:35[place] [address] Physiatry(Rehab) Progress Note Signed Patient: Renuka Owen MR#: [id number] : 1950 Acct:[id number] Age/Sex: 72 / F Adm Date: 3 Loc: Room: [address] [place] [address] Type: ADM IN Attending Dr: Saman Marino [...] mg 04/15/23 16:39 Bisacodyl 10 Mg Supp.Rect MT 04/14/24 16:38 DAILY PRN Constipation Calcium Carbonate 1 tab 04/15/23 21:00 04/19/23 09:01 Calcium Carbonate/Vitamin D3 500 Mg/200 Unit Tablet PO 04/14/24 20:59 1 tab BID JUSTYN Administration Carvedilol 6.25 mg 04/15/23 17:00 04/19/23 09:02 Carvedilol 6.25 Mg Tablet PO 04/14/24 16:59 Not Given BID.WITH.MEALS [facility] Cyclobenzaprine HCl 10 mg 04/15/23 16:34 04/19/23 11:36 Cyclobenzaprine 10 Mg Tablet PO 04/14/24 16:33 10 mg Q8HR PRN Administration Spasms Docusate Sodium 100 mg 04/15/23 16:39 Docusate 100 Mg Capsule PO 04/14/24 16:38 BID PRN Constipation Docusate Sodium 283 mg 04/15/23 16:39 Docusate Enema 283 Mg/5 Ml Enema MT 04/14/24 16:38 DAILY PRN Constipation Enalapril Maleate 2.5 mg 04/15/23 21:00 04/19/23 09:02 Enalapril Maleate 5 Mg Tablet PO 04/14/24 20:59 Not Given BID JUSTYN Fluticasone Propionate 2 spray 04/15/23 16:34 Fluticasone Propionate [place] 120 [place]/16 Gm Bottle INTRANASAL 04/14/24 16:33 DAILY PRN Nasal Congestion Gabapentin 300 mg 04/16/23 09:00 04/19/23 09:01 Gabapentin 300 Mg Capsule PO 04/15/24 08:59 300 mg QAM JUSTYN Administration Gabapentin 600 mg 04/15/23 22:00 04/18/23 21:00 Gabapentin 300 Mg Capsule PO 04/14/24 21:59 600 mg BID@1400,2200 [facility] Administration Hydrochlorothiazide 25 mg 04/16/23 09:00 04/17/23 [...] equipment to enhance the patient's a functional latter day Ensure adequate nutrition and hydration Sleep: No issues Pain: Reasonably controlled current regimen Discharge planning: Home tomorrow. I completed a substantive portion of this encounter, the medical decision makingportion of this note in its entirety, including Allied health note review, nursing note review, professional services consultant note review,discussion with nursing and case management, and more than 50% of my time was spent on counseling and coordination of care, time spent 35 minutes Patient was personally seen by me, Dr. Marino, on the day of encounter, I reviewed the history and the relevant portions of the chart, including current orders, allied health and professional services consultant notes, labs/imaging and performed butts elements of exam and I formulated the plan of care and facilitated the medical decision making. Documented By: Saman Marino MD 04/19/23 1434 Signed By: <Electronically signed by Saman Marino MD> 04/19/23 1435 [facility] Work Phone: 1(812) 574-276212-18-2023 Hospital Discharge instructionsAmbulatory Orders* Initiate Home Health [...] as needed. Your Home Health agency is [facility] ( ). They will contact you 24-48 [...] office to inform them prior to your appointment.[facility] Work Phone: 1([phone]) 262-875212-16-2023 Progress note Author Saman Marino [facility] April 17, 2023 12:23pmNote Date/TimeDecemb2022 12:23pm[place] [address] Physiatry(Rehab) Progress Note Signed Patient: Renuka Owen MR#: [id number] : 1950 Acct:[id number] Age/Sex: 72 / F Adm Date: 3 Loc: Room: 7E2552-3 Type: ADM IN Attending Dr: Saman Marino [...] mg 04/15/23 16:39 Bisacodyl 10 Mg Supp.Rect MT 04/14/24 16:38 DAILY PRN Constipation Calcium Carbonate [...] 16:39 Docusate Enema 283 Mg/5 Ml Enema MT 04/14/24 16:38 DAILY PRN Constipation Enalapril Maleate 2.5 mg 04/15/23 21:00 04/17/23 08:45 Enalapril Maleate 5 Mg Tablet PO 04/14/24 20:59 Not Given BID [facility] Fluticasone Propionate 2 spray 04/15/23 16:34 Fluticasone Propionate [place] 120 [place]/16 Gm Bottle INTRANASAL 04/14/24 16:33 DAILY PRN [...] equipment to enhance the patient's a functional latter day Ensure adequate nutrition and hydration Sleep: No issues Pain: Reasonably controlled current regimen Discharge planning: Home in a week or so. I completed a substantive portion of this encounter, the medical decision makingportion of this note in its entirety, including Allied health note review, nursing note review, professional services consultant note review,discussion with nursing and case management, and more than 50% of my time was spent on counseling and coordination of care, time spent 35 minutes Patient was personally seen by me, Dr. Marino, on the day of encounter, I reviewed the history and the relevant portions of the chart, including current orders, allied health and professional services consultant notes, labs/imaging and performed butts elements of exam and I formulated the plan of care and facilitated the medical decision making. Documented By: Saman Marino MD 04/17/231220 Signed By: <Electronically signed by Saman Marino MD> 04/17/231222 [facility] Work Phone: 1(254) 862-738112-15-2023 History and physical note Author Saman Marino [facility] April 16, 2023 1:42pmNote Date/TimeDecember 2022 11:19[place] [address] Physiatry (Rehab) H&P Signed Patient: Renuka Owen MR#: [id number] : 1950 Acct:[id number] Age/Sex: 72 / F Adm Date: 3 Loc: Room: 0Q6000-9 Type: ADM IN Attending Dr: Saman Marino [...] has been using a cane for ambulation. [facility] Medical History Arthritis Breast cancer left DDD [...] Bisacodyl (Bisacodyl 10 Mg Supp.Rect) 10 mg MT DAILY PRN PRN Reason: Constipation Stop: 04/14/24 16:38 Calcium Carbonate (Calcium Carbonate/Vitamin D3 500 Mg/200 Unit Tablet) 1 tab PO BID [facility] Stop: 04/14/24 20:59 Last Admin: 04/16/23 08:41 Dose: 1 tab Carvedilol (Carvedilol 6.25 Mg Tablet) 6.25 mg PO BID.WITH.MEALS [facility] Stop: 04/14/24 16:59 Last Admin: 04/16/23 08:35 Dose: 6.25 mg Cyclobenzaprine HCl (Cyclobenzaprine 10 Mg Tablet) 10 mg PO Q8HR PRN PRN Reason: Spasms Stop: 04/14/24 16:33 Last Admin: 04/16/23 10:16 Dose: 10 mg Docusate Sodium (Docusate 100 Mg Capsule) 100 mg PO BID PRN PRN Reason: Constipation Stop: 04/14/24 16:38 Docusate Sodium (Docusate Enema 283 Mg/5 Ml Enema) 283 mg MT DAILY PRN PRN Reason: Constipation Stop: 04/14/24 16:38 Enalapril Maleate (Enalapril Maleate 5 Mg Tablet) 2.5 mg PO BID JUSTYN Stop: 04/14/24 20:59 Last Admin: 04/16/23 08:41 Dose: 2.5 mg Fluticasone Propionate (Fluticasone Propionate [place] 120 [place]/16 Gm Bottle) 2 spray INTRANASAL DAILY PRN PRN Reason: Nasal Congestion Stop: 04/14/24 16:33 Gabapentin (Gabapentin 300 Mg Capsule) 300 mg PO QAM [facility] Stop: 04/15/24 08:59 Last Admin: 04/16/23 08:34 Dose: 300 mg Gabapentin (Gabapentin 300 Mg Capsule) 600 mg PO BID@1400,2200 [facility] Stop: 04/14/24 21:59 Last Admin: 04/15/23 21:11 Dose: 600 mg Hydrochlorothiazide (Hydrochlorothiazide 25 Mg Tablet) 25 mg PO DAILY [facility] Stop: 04/15/24 08:59 Last Admin: 04/16/23 08:33 [...] 40 Mg Tablet.Dr) 40 mg PO DAILY [facility] Stop: 04/15/24 08:59 Last Admin: 04/16/23 08:35 Dose: 40 mg Senna/Docusate Sodium (Sennosides/Docusate 8.6-50mg 1 Tab Tablet) 2 tab PO BID [facility] Stop: 04/14/24 20:59 Last Admin: 04/16/23 08:35 Dose: 2 tab Sennosides (Sennosides 8.6 Mg Tablet) 2 tab PO DAILY@12 PRN PRN Reason: If no BM in 2 days Stop: 04/15/24 11:59 Sodium Chloride (Sodium Chloride 0.9 % 10 Ml Syringe) 0 ml IV-PUSH PRN PRN PRN Reason: Flush Stop: 04/14/24 16:38 Torsemide (Torsemide 20 Mg Tablet) 20 mg PO DAILY [facility] Stop: 04/15/24 08:59 Last Admin: [...] % (Auto) 67.0 Lymph % (Auto) 18.4 [place] % (Auto) 13.9 Eos % (Auto) 0.3 Baso % (Auto) 0.4 Nucleat RBC Rel Count 0.1 Neut # (Auto) 6.5 Lymph # (Auto) 1.8 [place] # (Auto) 1.4 H Eos # (Auto) [...] 2 weeks Expected Discharge Destination: Home Rehabilitation [facility]: 08.9 Primary Diagnosis: Lumbar stenosis [...] additional therapy on as needed basis. Comments: PV DESIGN AND INSTALLATION TECHNICIAN to evaluate and treat patient?s cognition, language and communication skills, assess swallow function. Other: Dietitian, Rehab nursing, Wound, P&O, Neuropsychology as needed RATIONALE FOR IRF ADMISSION: Patient has both medical and functional complexities that require 24 hour daily monitoring and intervention from Automation Clerk as well as other consulting physicians including internal medicine as well as 24 hour daily kennel operator nursing - for medical safe / optimal manageme nt. Patient requires interdisciplinary therapy team rehabilitation care including OT, PT, PV DESIGN AND INSTALLATION TECHNICIAN, SW, Psychology, Rehab Nursing, requires and can [...] equipment to enhance the patient's a functional latter day Ensure adequate nutrition and hydration Sleep: No issues Pain: Reasonably controlled current regimen Discharge planning: Home in a week or so. I spent greater than 35 minutes for services, including [id number] encounter with the patient, discussion of the case, plan of care, and exam; and akmzklj-bn-[id number] activities, such as reviewing pertinent professional services consultant documentation, recent therapy notes, laboratory and radiology studies, and discussion of case with care team including physician, nursing, hospice case manager, and therapists. More than 50 % of time was spent on patient/family counseling or coordination ofcare. I completed a substantive portion of this encounter, the medical decision makingportion of this note in its entirety, including Allied health note review, nursing note review, professional services consultant note review,discussion with nursing and case management, and more than 50% of my time was spent on counseling and coordination of care, time spent 70 minutes Patient was personally seen by me, Dr. Marino, on the day of encounter, within 24hours of rehab admission, reviewed the history and the relevant portions of the chart, including current orders, alliedhealth and professional services consultant notes, labs/imaging and performed butts elements of exam and I formulated the plan of care and facilitated the medical decision making. Documented By: Marley Mendieta APRN 04/16/23 1 112 Signed By: <Electronically signed by CASSIA Mendieta> 04/16/23 1158 <Electronically signed by Saman Marino MD> 04/16/23 1342 [facility] Work Phone: 1(158) 444-470011-21-2023 Evaluation note* Encounter Date Diagnosis Assessment Notes Treatment Notes Treatment Clinical Notes Mar, Acute bilateral low back pain wi thout sciatica (ICD-10 - M54.50) [facility] Other 11-16-2023 History of Present illness Narrative* [...] Left ventricular systolic dysfunction documented in this [facility] Work Phone: 1([phone]) 183-191411-16-2023 Instructions* Patient Instructions* Priscilla Gramajo LPN - [...] to hold Aspirin asdirected. documented [facility] Work Phone: [phone]) 201-276111-08-2023 Evaluation note* Encounter Date Diagnosis Assessment Notes [...] watch for pap results, call patient. Consider BILLIARD PLAYER referral for possible pessary.. She is having back surgery soon and may consider further nurse gynecology appts after surgery. [facility] Other 10-31-2023 History of Present illness Narrative* [...] 2.5 mg twice daily. Bryce Hendrickson MD, [facility] Review of Systems All other systems [...] linked to this encounter. documented in this encounterF[facility] Work Phone: [phone] Instructions* Patient Instructions* Julito Westbrook LPN - [...] time of your visit. documented in this [facility] Work Phone: [phone]) [phone] Evaluation note* Encounter Date Diagnosis Assessment Notes Treatment Notes Treatment Clinical Notes Jan, Dysuria (ICD-10 - R30.0) [facility] Other 10-26-2023 Evaluation note* Encounter Date Diagnosis [...] Jan,History of lumbar fusion (ICD-10 - Z98.1) [facility] Other 10-23-2023 Evaluation note* Encounter Date Diagnosis Assessment Notes Treatment Notes Treatment Clinical Notes Jan, Acute bilateral low back pain wi thout sciatica (ICD-10 - M54.50) [facility] Other 10-23-2023 Evaluation note* Encounter Date Diagnosis Assessment Notes Treatment Notes Treatment Clinical Notes Jan, Dysuria (ICD-10 - R30.0) [facility] Other 10-02-2023 Evaluation note* Encounter Date Diagnosis Assessment Notes Treatment Notes Treatment Clinical Notes Jan, Osteopenia of left forearm (ICD- 10 - M85.832) [facility] Other 09-21-2023 Evaluation note* Encounter Date Diagnosis [...] Jan,ain in left hip (ICD-10 - M25.552) [facility] Other 09-07-2023 Evaluation note* Encounter Date Diagnosis [...] (ICD-10 - R53.83)check labs: CBC, BS, TSH [facility] Other 04-14-2023 Evaluation note* Encounter Date Diagnosis Assessment Notes Treatment Notes Treatment Clinical Notes Aug, Benign hypertension with chronic kidney disease, 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 [facility] Other 02-21-2023 Evaluation note* Encounter Date Diagnosis Assessment Notes Treatment Notes Treatment Clinical Notes Jun, Spondylolisthesis, lumbar region (ICD-10 - M43.16) At 3 months postop the patient now can leave her brace.She has good relief of Her leg pain. She is very happy with her progress I will see her back in 3 months with an x-ray.Her x-ray today looks good. [facility] Other 01-20-2023 Evaluation note* Encounter Date Diagnosis Assessment Notes Treatment Notes Treatment Clinical Notes May, Dysuria (ICD-10 - R30.0) [facility] Other 01-17-2023 History of Present illness Narrative* [...] pain on 05/10/2022. She was seen at [facility] emergency room and admitted for evaluation. Chest CTA was negative. Cardiac work-up was negative. Apparently she was given IV NSAID, and the painresolved instantly. Most likely she had acute pleurisy. She has had no recurrent symptoms. However,she plans to follow-up with her area manager and is scheduled to undergo a [...] 04/08/2021 308 RADIOLOGY/OTHER STUDIES: 05/10/2022 Chest CTA ([facility]) No evidence for acute pulmonary embolism, thoracic aortic aneurysm, or aortic dissection. Mild cardiomegaly with trace 3 mm thick pericardial effusion. Mosaic attenuation of the bilateral lungs reflect sequelae of reactive airway inflammation. Moderate bilateral upper and lower lung linear scar. 02/05/2022 Diagnostic right mammogram ([facility]) Benign finding. No change from comparison. Recommend routine mammogram in 12 months. 04/08/2020 CT abdomen/pelvis ([facility]). 6.4 x 3.3 cm soft tissue [...] advanced left breast cancer diagnosed March 2011. ER/MT negative, HER-2 negative (triplenegative). Status post preop [...] presacral space. The patient was referred to [facility] colorectal surgery (Dr. Lorenzo) and underwent surgical [...] chest pain 05/10/2022. She was seen at [facility] emergency room and admitted for evaluation. Chest CTA was negative. Cardiac work-up was negative. Apparently she was given IV NSAID, and the pain resolved instantly. Most likely she had acute pleurisy. She has had no recurrent symptoms. Currently the patient plans to follow-up with her area manager and is scheduled to undergo a stress test. Jacob Mercado MD documented in this [facility]01-12-2023 Evaluation note* Encounter Date Diagnosis Assessment Notes [...] May,Fusion of lumbar spine (ICD-10 - M43.26) [facility] Other 01-05-2023 Evaluation note* Encounter Date Diagnosis Assessment Notes Treatment Notes Treatment Clinical Notes May, Primary hypertension (ICD-10 - I 10) May,Spondylolisthesis, lumbar region (ICD-10 - M43.16) [facility] Other 12-13-2022 Evaluation note* Encounter Date Diagnosis Assessment Notes Treatment Notes Treatment Clinical Notes Apr, Spondylolisthesis, lumbar region (ICD-10 - M43.16) She is doing well post operative, denies pain and over all looks good. Wound healed and well approximated, clean dry and intact. Removed 20 lazara. Will continue with physical therpay. Xray ordered and follow up in 4 weeks [facility] Other 11-30-2022 Progress note Author Vivi Biggs [facility] April 01, 2022 8:09amNote Date/TimeNovember 2021 7:37[place] [address] Neurosurgery Progress Note Signed Patient: Renuka Owen MR#: [id number] : 1950 Acct:[id number] Age/Sex: 71 / F Adm Date: 2 Loc: 4N Room: [address] [place] [address] Type: REG SD Attending Dr: Devin Moreau [...] signed by MD Devin Moreau> 03/31/22 0737 [facility] Work Phone: 1([phone]) [phone] Hospital Discharge instructionsAmbulatory Orders* Initiate Home Health [...] it does not do not use the prednisoneMet[facility] Work Phone: [phone] Evaluation note* Encounter Date Diagnosis Assessment Notes [...] the patient back in about 6 weeks [facility] Other 08-30-2022 Evaluation note* Encounter Date Diagnosis [...] will see her back in 6 weeks [facility] Other 07-05-2022 Evaluation note* Encounter Date Diagnosis [...] the office in 2 months for reevaluation. [facility] [employer] Other 06-09-2022 Progress note Author Devin Moreau [facility] October 09, 2021 7:38amNote Date/TimeJune 2021 7:38[place] [address] Neurosurgery Progress Note Signed Patient: Renuka Owen MR#: [id number] : 1950 Acct:[id number] Age/Sex: 70 / F Adm Date: 2 Loc: Room: [address] [place] [address] Type : REG SDC Attending Dr: Devin [...] signed by MD Devin Moreau> 10/09/21 0738 [facility] Work Phone: [phone] Evaluation note* Encounter Date Diagnosis Assessment Notes [...] She was actually due to see her area manager today and she canceled because of [...] current pathological fracture (ICD- 10 - M81.0) [employer] Other 02-17-2021 History of Past illness Narrative* Problem Noted DateResolved DateRectal tumor/ocumented as of this encounter (statuses as of 05/08/2022) [facility]02-17-2021 History of Past illness Narrative* ProblemNoted Date Resolved DateRectal tumor/1documented as of this encounter (statuses as of 05/20/2022) [facility]02-17-2021 History of Past illness Narrative* ProblemNoted Date Diagnosed DateResolved DateRectal tumor/1documented as of this encounter (statuses as of 06/23/2023) [facility] Author Devin Moreau [facility] [place] [facility] April 01, 2022 10:58amNote Date/TimeNov2021 10:57[place] [address] Discharge Summary Signed Patient: Renuka Owen MR#: [id number] : 1950 Acct:[id number] Age/Sex: 71 / F Adm Date: 2 Loc: Room: [address] [place] [address]: Devin Moreau MD Copies to: [...] signed by MD Devin Moreau> 04/01/22 1058 [facility] Work Phone: Evaluation noteNo assessment information available [facility] Work Phone: Evaluation note* Diagnosis Onset Date Resolution Status Lumbar stenosis without neurogenic my ication acute [facility] Work Phone: Evaluation noteNo InformationNort [employer] Other Evaluation note* Diagnosis Malignant neoplasm of left breast in female, estrogen receptor negative, unspecified site of breast(HCC) 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 [facility] Diagnosis Malignant neoplasm of upper-outer quadrant of left breast in female, estrogen receptor negative (HCC)- Primary [facility] Diagnosis Mitral valve insufficiency, unspecified etiology Essential hypertension Unspecified essential hypertension Edema, unspecified type LBBB (left bundle branch block) Other left bundle branch block documented in this encounter [facility] Work Phone: Evaluation note* Diagnosis Mitral valve insufficiency, unspecified etiology- Primary Essential hypertension Unspecified essential hypertension Overweight with body mass index (BMI) of 29 to 29.9 in adult Edema, unspecified type Left ventricular systolic dysfunction documented in this encounter [facility] Work Phone: Evaluation note* Diagnosis Onset Date Resolution Status GERD (gastroesophageal reflux disease) acuteImpaired mobility and activities of daily livingacuteLeft bundle branch blockacuteLumbar stenosis without neurogenic claudicationacuteNeuropathyacute OsteoporosisacutePostoperative painacuteImpaired mobility and activities of daily livingacuteLeft bundle branch blockacuteLumbar stenosis without neurogenic claudicationacuteNeuropathyacutePostoperative painacute [facility] Work Phone: Evaluation note* Diagnosis Onset Date Resolution Status GERD (gastroesophageal reflux disease) acuteImpaired mobility and activities of daily livingacuteLeft bundle branch blockacuteLumbar stenosis without neurogenic claudicationacuteNeuropathyacute OsteoporosisacutePostoperative painacuteImpaired mobility and activities of daily livingacuteLeft bundle branch blockacuteLumbar stenosis without neurogenic claudicationacuteNeuropathyacutePostoperative painacuteLumbar adjacent segment disease with spondylolisthesisacuteSpondylolisthesis, lumbar regionacuteStatus post lumbar spinal fusionacute [facility] Work Phone: Evaluation note* Diagnosis Malignant neoplasm of upper-outer quadrant of left breast in female, estrogen receptor negative (HCC) (HCC)- Primary 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 [facility] Diagnosis Mitral valve insufficiency, unspecified etiology Essential hypertension Unspecified essential hypertension Left ventricular systolic dysfunction BMI 29.0-29.9,adult Never smoked tobacco documented in this encounter [facility] Work Phone: Evaluation note* Diagnosis Onset Date Resolution Status Lumbar adjacent segment disease with spo ndylolisthesis acuteSpondylolisthesis, lumbar regionacuteStatus post lumbar spinal fusionacute Inflammation of right sacroiliac jointacuteLumbar adjacent segment disease with spondylolisthesisacuteSpondylolisthesis, lumbar regionacuteStatus post lumbar spinal fusionacute [facility] Work Phone: Evaluation note* Diagnosis Onset Date Resolution Status Lumbar adjacent segment disease with spo ndylolisthesis acuteSpondylolisthesis, lumbar regionacuteStatus post lumbar spinal fusionacute Inflammation of right sacroiliac jointacuteLumbar adjacent segment disease with spondylolisthesisacuteSpondylolisthesis, lumbar regionacuteStatus post lumbar spinal fusionacuteChronic painacuteOther low back painacuteSacroiliitis, not elsewhere classifiedacute [facility] Work Phone: Evaluation note* Diagnosis Onset Date Resolution Status Inflammation of right sacroiliac joint acuteLumbar adjacent segment disease with spondylolisthesisacute Spondylolisthesis, lumbar regionacuteStatus post lumbar spinal fusionacute Chronic painacuteOther low back painacuteSacroiliitis, not elsewhere classified acuteChemotherapy-induced peripheral neuropathyacuteChronic venous insufficiency of lower extremityacuteLumbar spondylosisacuteNocturnal leg crampsacuteChronic painacuteOther low back painacuteSacroiliitis, not elsewhere classifiedacute [facility] Work Phone: Evaluation note* Diagnosis Onset Date Resolution Status Chronic pain acuteOther low back painacuteSacroiliitis, not elsewhere classifiedacute Chemotherapy-induced peripheral neuropathyacuteChronic venous insufficiency of lower extremityacuteLumbar spondylosisacuteNocturnal leg crampsacuteChronic pain acuteOther low back painacuteSacroiliitis, not elsewhere classifiedacuteLumbar spondylosisacuteStatus post lumbar spinal fusionacute [facility] Work Phone: Evaluation note* Diagnosis Onset Date Resolution Status Chronic pain acuteOther low back painacuteSacroiliitis, not elsewhere classifiedacute Chemotherapy-induced peripheral neuropathyacuteChronic venous insufficiency of lower extremityacuteLumbar spondylosisacuteNocturnal leg crampsacuteChronic pain acuteOther low back painacuteSacroiliitis, not elsewhere classifiedacuteLumbar spondylosisacuteStatus post lumbar spinal fusionacuteSinusitisacute [facility] Work Phone: Evaluation note* Diagnosis Onset Date Resolution Status Chemotherapy-induced peripheral neuropat hy acuteChronic venous insufficiency of lower extremityacuteLumbar spondylosisacute Nocturnal leg crampsacuteChronic painacuteOther low back painacuteSacroiliitis, not elsewhere classifiedacuteLumbar spondylosisacuteStatus post lumbar spinal fusionacuteSinusitisacuteChronic painacuteOther low back painacuteSacroiliitis, not elsewhere classifiedacute [facility] Work Phone: Evaluation note* Diagnosis Onset Date Resolution Status Chemotherapy-induced peripheral neuropat hy acuteChronic venous insufficiency of lower extremityacuteLumbar spondylosisacute Nocturnal leg crampsacuteChronic painacuteOther low back painacuteSacroiliitis, not elsewhere classifiedacuteLumbar spondylosisacuteStatus post lumbar spinal fusionacuteSinusitisacuteChronic painacuteOther low back painacuteSacroiliitis, not elsewhere classifiedacuteDegenerative arthritis of left footacuteLeft foot painacute [facility] Work Phone: Evaluation note* Diagnosis Onset Date Resolution Status Chronic pain acuteOther low back painacuteSacroiliitis, not elsewhere classifiedacuteLumbar spondylosisacuteStatus post lumbar spinal fusionacuteSinusitisacuteChronic pain acuteOther low back painacuteSacroiliitis, not elsewhere classifiedacute Degenerative arthritis of left footacuteLeft foot painacute [facility] Work Phone: Evaluation note* Diagnosis Onset Date Resolution Status Lumbar spondylosis acuteStatus post lumbar spinal fusionacuteSinusitisacuteChronic painacuteOther low back painacuteSacroiliitis, not elsewhere classifiedacuteDegenerative arthritis of left footacuteLeft foot painacuteChronic painacuteOther low back painacuteSacroiliitis, not elsewhere classifiedacute [facility] Work Phone: Evaluation note* Diagnosis Onset Date Resolution Status Chronic pain acuteOther low back painacuteSacroiliitis, not elsewhere classifiedacute Degenerative arthritis of left footacuteLeft foot painacuteChronic painacute Other low back painacuteSacroiliitis, not elsewhere classifiedacuteHistory of lumbar fusionacutePain of right sacroiliac jointacute [facility] Work Phone: Evaluation note* Diagnosis Onset Date Resolution Status Degenerative arthritis of left foot acuteLeft foot painacuteChronic painacuteOther low back painacuteSacroiliitis, not elsewhere classifiedacuteHistory of lumbar fusionacutePain of right sacroiliac jointacuteChemotherapy-induced peripheral neuropathyacuteChronic venous insufficiency of lower extremityacuteLumbar spondylosisacuteNocturnal leg crampsacute [facility] Work Phone: Evaluation note* Diagnosis Onset Date Resolution Status Degenerative arthritis of left foot acuteLeft foot painacuteChronic painacuteOther low back painacuteSacroiliitis, not elsewhere classifiedacuteHistory of lumbar fusionacutePain of right sacroiliac jointacuteAllergic rhinitisacuteChemotherapy-induced peripheral neuropathyacuteNasal polyp, posterioracuteTinnitus of both earsacute [facility] Work Phone: Evaluation note* Diagnosis Chronic sinusitis, unspecified location- Primary documented in this encounter [facility]* Diagnosis Chronic frontal sinusitis- Primary documented in this encounter [facility]* Diagnosis Mitral valve insufficiency, unspecified etiology documented in this encounter [facility] Work Phone: Evaluation note* Diagnosis Mitral valve insufficiency, unspecified etiology- Primary Left ventricular systolic dysfunction Essential hypertension Unspecified essential hypertension LBBB (left bundle branch block) Other left bundle branch block BMI 28.0-28.9,adult Stage 3a chronic kidney disease (Multi) documented in this encounter [facility] Work Phone: Evaluation note* Diagnosis Dermatophytosis of nail- Primary Dystrophic nail Other specified disease of nail Pain in both feet documented in this encounter [facility]Evaluation [facility]* Diagnosis Primary open angle glaucoma (POAG) of both eyes, mild stage (CMS/HCC)- Primary PCO (posterior capsular opacification), bilateral Unspecified after-cataract Keratoconjunctivitis sicca of both eyes not specified as Sjogren's documented in this encounter [facility]* Diagnosis Preop examination- Primary [...] negative (HCC)- Primary [facility] Diagnosis Dermatophytosis of nail- Primary Dystrophic nail Other specified disease of nail Pain around toenail, right foot Pain around toenail, left foot documented in this encounter [facility] HealthcareEvaluation note* Diagnosis Osteoarthritis of midtarsal joint of left foot- Primary Capsulitis of left foot Pain in joint of left foot Pain and swelling of toe of left foot Difficulty walking Difficulty in walking documented in this encounter [facility] Healthcare[facility] note* Diagnosis Bilateral carpal tunnel syndrome- Primary Carpal tunnel syndrome Idiopathic progressive neuropathy documented in this encounter [facility] HealthcareEvaluation note* Diagnosis Mitral valve insufficiency, unspecified etiology- Primary Left ventricular systolic dysfunction Essential hypertension Unspecified essential hypertension LBBB (left bundle branch block) Other left bundle branch block BMI 28.0-28.9,adult Never smoked tobacco Stage 3a chronic kidney disease (Multi) documented in this encounter [facility] Work Phone: Evaluation note* Diagnosis Acute pain of right shoulder- Primary Rotator cuff arthropathy of right shoulder Subacromial impingement of right shoulder documented in this encounter [facility] note* Diagnosis Mitral valve insufficiency, unspecified etiology Left ventricular systolic dysfunction documented in this encounter [facility] Work Phone: History general Narrative - Reported* Type Description Date Medical History Breast Cancer Surgical HistoryhysterectomySurgical HistorycholecystectomySurgical Historylower backSurgical Historybilateral knee replacementSurgical Historyleft rotator cuff repairSurgical Historyleft mastectomySurgical Historybreast reconstruction Surgical Historybenign presacral mass scdafyc25/2021Hospitalization HistorySee Above [employer] Other History general Narrative - Reported* Type Description Date Medical History Breast Cancer Surgical HistoryhysterectomySurgical HistorycholecystectomySurgical Historylower backSurgical Historybilateral knee replacementSurgical Historyleft rotator cuff repairSurgical Historyleft mastectomySurgical Historybreast reconstruction Surgical Historybenign presacral mass pdeiqww76/[address]21[address]PLIF [address] Dr[address] Moreau04/01/2022Hospitalization HistorySee Above [employer] Other History general Narrative - Reported* Type [...] mastectomySurgical Historybreast reconstruction Surgical Historybenign presacral mass ahfmgye63/[address]21[address] Dr[address] Moreau04/01/2022Hospitalization HistorySee Above [employer] Other History general Narrative - Reported* Type [...] mastectomySurgical Historybreast reconstruction Surgical Historybenign presacral mass vqcawxo36/[address] Moreau04/01/2022urgical HistoryColonoscopy01/2018Hospitalization HistorySee Above [employer] Other History general Narrative - Reported* Type [...] mastectomySurgical Historybreast reconstruction Surgical Historybenign presacral mass rukaizk79/[address] Moreau04/01/2022urgical HistoryColonoscopy01/2018Hospitalization HistorySee Above [employer] Other History general Narrative - Reported* Type [...] Historyleft mastectomySurgical Historybreast reconstructionSurgical Historybenign presacral mass qjfapkw51/[address] Moreau04/01/2022urgical History Colonoscopy01/2018Hospitalization HistorySee Above [employer] Other History general Narrative - Reported* Type [...] Historyleft mastectomySurgical Historybreast reconstructionSurgical Historybenign presacral mass gtsaelc89/[address] Moreau04/01/2022urgical History Colonoscopy01/2018Surgical QdolvdpBBXU93/2023Hospitalization HistorySee Above [employer] Other Hospital Discharge instructionsAmbulatory Orders* Referral to Pain Management Location: None Selected [facility] Work Phone: Progress note Author Devin Moreau [facility] April 01, 2022 10:53amNote Date/TimeNovember 2021 10:53[place] [address] Neurosurgery Progress Note Signed Patient: Renuka Owen MR#: [id number] : 1950 Acct:[id number] Age/Sex: 71 / F Adm Date: 2 Loc: 4 Room: [address] [place] [address] Type: REG WVC Attending Dr: Devin Moreau [...] signed by MD Devin Moreau> 04/01/22 1053 [facility] Work Phone: Reason for referral (narrative)* Diagnostic Procedure Only (Routine) - Pending ReviewSpecialtyDiagnoses / ProceduresReferred By ContactReferred To ContactBR IMAGING Diagnoses Malignant neoplasm of upper-outer quadrant of left breast in female, estrogen receptor negative (HCC) Procedures [facility] RT DIAGNOSTIC MAMMOGRAPHY COMPUTER-AIDED DETCJ UNI Jacob Mercado MD [address] [place] [address] [place] [address] [facility] [address] [place] [address] Referral IDStatusReasonStart DateExpiration DateVisits RequestedVisits [id number] Review Auto-Generated Referral / [facility] for referral (narrative)* Consultation (Routine) - AuthorizedSpecialtyDiagnoses / ProceduresReferred By ContactReferred To ContactCardiology Diagnoses Mitral valve insufficiency, unspecified etiology Essential hypertension Procedures Follow Up In Cardiology Bryce Hendrickson MD [address] [place] [address] 2, [address] [place] [address] Bryce Hendrickson MD [address] [facility] 2, [address] [address] Referral IDStatusReasonStart DateExpiration DateVisits RequestedVisits [id number]/31/202310/ [facility] Work Phone: reason for referral (narrative)* Consultation (Routine) - AuthorizedSpecialtyDiagnoses / ProceduresReferred By Contact Referred To ContactCardiology Diagnoses Mitral valve insufficiency, unspecified etiology Procedures Follow Up In Cardiology Bryce Hendrickson MD [address] [facility] 2, [address] [address] Bryce Hendrickson MD [address] [place] [address] [address], [address] [address] Referral IDStatusReasonStart DateExpiration DateVisits RequestedVisits [id number]/16/202311/ [facility] Work Phone: reason for referral (narrative)* Diagnostic Procedure Only (Routine) - Pending ReviewSpecialtyDiagnoses / ProceduresReferred By ContactReferred To ContactBR IMAGING Diagnoses Malignant neoplasm of upper-outer quadrant of left breast in female, estrogen receptor negative (HCC) (HCC) Procedures [facility] RIGHT DIAGNOSTIC MAMMOGRAPHY COMPUTER-AIDED DETCJ UNI Jacob Mercado MD [address] [place] [address] [place] [address] [address] Referral IDStatusReasonStart DateExpiration DateVisits RequestedVisits [id number] Review Auto-Generated Referral / [facility] for referral (narrative)No reason for referral information available[facility] Work Phone: Reason for visit NarrativePain management referral [facility] [employer] Other Reason for visit Narrative* Consultation (Routine) - ClosedSpecialtyDiagnoses / ProceduresReferred By ContactReferred To Contact Neurology Diagnoses Headache, unspecified Spondylosis without myelopathy or radiculopathy, cervical region Procedures [facility] [employer] [facility] Phys[facility] [address] [place] [address] Phone: tel: fax: Bran Linda MD [address] [facility] [address] [place] [address] Phone: tel: fax: Referral IDStatusReasonStart DateExpiration DateVisits RequestedVisits [id number]/12/20259/ [facility] for visit Narrative* CV Imaging (Routine) - Authorized SpecialtyDiagnoses / ProceduresReferred By ContactReferred To Contact Cardiology Diagnoses Mitral valve insufficiency, unspecified etiology Left ventricular systolic dysfunction Procedures Transthoracic Echo Limited MT ECHO TRANSTHORC R-T 2D W/WO M-MODE REC F-UP/LMTD MT DOPPLER ECHO COLOR FLOW VELOCITY MAPPING MT DOPPLER ECHO PULSE WAVE W/SPECTRAL F-UP/LMTD STD Bryce Hendrickson MD [address] [facility] 2, [facility] [address] [place] [address] Phone: tel: fax: Referral IDStatusReasonStart DateExpiration DateVisits RequestedVisits [id number] Perform Procedure [facility] Work Phone: Summary Purpose Family History [...] Relationship Condition Age at Onset Recorded Date/T demetrai Not Specified Malignant neoplasm of breast Unknown [...] 2024 9:54am Hospital Course Note HNO ID: [id number] Author: Keith winn (Halle) Duyen Service: Colorectal [...] (more content not included)... Note HNO ID: [id number] Author: Yissel Reddy) Lucina Service: Anesthesiology Author Type: Nurse Refrigerating Engineer Head Type: Anesthesia Procedure Notes Filed: 06/19/2020 2:41 PM Note Text: ANESTHESIOLOGY PROCEDURE NOTE Airway General Information Procedure Start Time/Medication Administration: 06/19/2020 2:25 PM Patient location during procedure: OR Timeout Performed Pre-procedure: timeout performed Patient identity confirmed: arm band and patient Staffing Anesthesiologist: Ricardo Arvizu REGIONAL PSYCHIATRIC DIRECTOR: Robyn Reddy) Lucina Performed by: JENNI Indications [...] (more content not included)... Note HNO ID: [id number] Author: Karuna He (Fel) Service: Colorectal Author Type: Fellow Type: Brief Op Note Filed: 06/19/2020 4:17 PM Note Text: BRIEF OPERATIVE NOTE - COLORECTAL SURGERY Log ID: [id number] Surgery/Procedure Date: 06/19/2020 Incision/Procedure Start Time: 2:46 PM Incision Close/Procedure End Time: 4:00 PM Surgeon(s) and Drug Room Operator(s): Surgeon(s) and Role: * Saman Lorenzo - [...] not included)... Procedure Findings Note HNO ID: [id number] Author: Yissel Reddy) Lucina Service: Anesthesiology Author Type: Nurse Refrigerating Engineer Head Type: Anesthesia Procedure Notes Filed: 06/19/2020 2:41 PM Note Text: ANESTHESIOLOGY PROCEDURE NOTE Airway General Information Procedure Start Time/Medication Administration: 06/19/2020 2:25 PM Patient location during procedure: OR Timeout Performed Pre-procedure: timeout performed Patient identity confirmed: arm band and patient Staffing Anesthesiologist: Ricardo Arvizu REGIONAL PSYCHIATRIC DIRECTOR: Robyn Reddy) Celioivurszula Performed by: JENNI Indications [...] (more content not included)... Note HNO ID: [id number] Author: Karuna He (Fel) Service: Colorectal Author Type: Fellow Type: Brief Op Note Filed: 06/19/2020 4:17 PM Note Text: BRIEF OPERATIVE NOTE - COLORECTAL SURGERY Log ID: [id number] Surgery/Procedure Date: 06/19/2020 Incision/Procedure Start Time: 2:46 PM Incision Close/Procedure End Time: 4:00 PM Surgeon(s) and Drug Room Operator(s): Surgeon(s) and Role: * Saman Lorenzo - [...] L4-5 revision 2 Week Po Plif W/X-Ray [facility] Discharge 1 Mo Po W/X-Ray m43.16 [...] Complaint 2 Week Po Plif W/X-R ay [facility] Discharge 1 Mo Po W/X-Ray m43.16 [...] Risk Stratification April 112023 4:16pm Inpatient f/u [facility] April 12, 2024 2:39pm Weakness/Walking May 12, [...] gait when walking May 12, 2024 1:44pm Ezwjx-uv-mifmqbz kidney injury May 052024 1:43pm Anemia June [...] :44pm Fall June 01, 2024 1 :43pm Half-Way Visit June 01, 2024 1 1:59pm Fall [...] gait when walking May 12, 2024 1:44pm Kigsc-da-jbsuncv kidney injury May 052024 1:43pm Anemia June [...] gait when walking May 12, 2024 1:44pm Eyvku-wk-nzrajbl kidney injury May 052024 1:43pm Anemia June [...] Risk Stratification April 112023 4:16pm Inpatient f/u [facility] April 12, 2024 2:39pm Weakness/Walking May 12, 2024 1 :44pm Fall June 01, 2024 1 :43pm Half-Way Visit June 01, 2024 1 1:59pm Fall June 03, 2024 8 :37am Fall June 05, 2024 9 :30am Amb Documentation June 27, 2024 8:38am Z96.652 - Presence of left artificial kn ee joint June 29, 2024 8:09am NEW LTKA PAIN AFTER FALL June 29, 2024 9:30am [facility] f/u July 03, 2024 1:18 pm Reason [...] gait when walking May 12, 2024 1:44pm Ahzfk-sw-fnmnovl kidney injury May 052024 1:43pm Anemia June [...] :44pm Fall June 01, 2024 1 :43pm Half-Way Visit June 01, 2024 1 1:59pm Fall June 03, 2024 8 :37am Fall June 05, 2024 9 :30am Half-Way Visit June 22, 2024 11:59pm Amb Documentation June 27, 2024 8:38am Z96.652 - Presence of left artificial kn ee joint June 29, 2024 8:09am NEW LTKA PAIN AFTER FALL June 29, 2024 9:30am [facility] f/u July 03, 2024 1:18 pm Reason [...] gait when walking June 01, 2024 1:43pm Sfjxc-ia-rmtsafx kidney injury May 052024 1:43pm Hypokalemia June [...] :44pm Fall June 01, 2024 1 :43pm Half-Way Visit June 01, 2024 1 1:59pm Fall June 03, 2024 8 :37am Fall June 05, 2024 9 :30am Half-Way Visit June 22, 2024 11:59pm Amb Documentation June 27, 2024 8:38am Z96.652 - Presence of left artificial kn ee joint June 29, 2024 8:09am NEW LTKA PAIN AFTER FALL June 29, 2024 9:30am [facility] f/u July 03, 2024 1:18 pm 3 [...] gait when walking June 01, 2024 1:43pm Jtllf-uk-peqyxul kidney injury May 052024 1:43pm Hypokalemia June 01, 2024 1 :43pm Generalized weakness June 01, 2024 1:43pm History of total left knee replacement [facility] 2024 9:30am Pes anserinus bursitis of left knee [facility] 2024 9:30am Anemia July 03, [...] History of total left knee replacement [facility] 2024 11:07am Pes anserinus bursitis of left knee [facility] 2024 11:07am Chief Complaint Admit Date Half-Way Visit June 22, 2024 11:59pm Amb Documentation June 27, 2024 8:38am Z96.652 - Presence of left artificial kn ee joint June 29, 2024 8:09am NEW LTKA PAIN AFTER FALL June 29, 2024 9:30am [facility] f/u July 03, 2024 1:18 pm 3 WEEKS July 24, 2024 11: 07am Fatigued September 04, 2024 10:26a m Reason for Visit Admit Date History of total left knee replacement [facility] 2024 9:30am Pes anserinus bursitis of left knee [facility] 2024 9:30am Anemia July 03, [...] 10:26a m Chief Complaint Admit Date [facility] f/u July 03, 2024 1:18 pm 3 [...] Encephalopathy s/t Sepsis November 28, 2024 12:00am Half-Way Visit December 07, 2024 11: 59pm Half-Way Visit December 21, 2024 11 :59pm Amb [...] Encephalopathy s/t Sepsis November 28, 2024 12:00am Half-Way Visit December 07, 2024 11: 59pm Half-Way Visit December 21, 2024 11 :59pm Amb Documentation January 09, 2025 1:50pm N17.9 I50.20 January 11, 2025 3:24pm Hospital F/U January 11, 2025 4:07pm [facility] follow up January 15, 2025 11:36am Reason [...] insufficiency, unspecified etiology Procedures Transthoracic Echo Complete MT ECHO TTHRC R-T 2D W/WOM-MODE COMPL SPEC&COLR D Bryce Hendrickson MD [address] [facility] [address], [address] [address] Referral IDStatusReasonWichita DateExpiration DateVisits RequestedVisits [id number] Review Perform Procedure [id number] / ProceduresReferred By ContactReferred To ContactCardiology Diagnoses Mitral valve insufficiency, unspecified etiology Procedures Follow Up In Cardiology Bryce Hendrickson MD [address] [facility] [address], [address] [place] [address] Bryce Hendrickson MD [address] [facility] [address], [address] [place] [address] Referral IDStatusReasonWichita DateExpiration DateVisits RequestedVisits [id number]/14/[id number]/[id number] Reason evaluate and treat Diagnosis 1 Lumbar stenosis with neurogenic claudication (M48.062) Referral Organization [facility] [place] [place] Referring Provider First Name Vivi Referring Provider Last Name Kalyan Referring Provider Specialty Nurse Pracdonna itioner Referred Organization [facility] Referred Address [address], [place],[address] Referred Provider Specialty Physical The rapist Referral Priority Routine Reason *Waiting for appt Evaluate and Treat Intra-articular Diagnostic Therapeutic L Hip Injection Diagnosis 1 Arthropathy of left hip (M16.12) Referral Organization [facility] Referring Provider First Name Devin Referring Provider Last Name Lizzeth Referring Provider Specialty Neurologica l Surgery Referred Organization [facility] Pain Managemen t Bone [place] Referred Provider Artie Blackburn Referred Address [address] [facility] [place],[address] Referred Provider Specialty Pain Medicin e Referral Priority Routine General Notes Fore, Valeri M 022 08:24:55 AM >Received today and sent P2P Reason *FU 01/09 Evaluate and Treat Left Hip Pain Diagnosis 1 Arthropathy of left hip (M16.12) Referral Organization [facility] Referring Provider First Name Devin Referring Provider Last Name Lizzeth Referring Provider Specialty Neurologica l Surgery Referred Organization [facility] Referred Provider Eran Hankins Referred Address ,[place], [place],[address] Referred Provider Specialty Orthopedic S urgery Referral [...] problems noted below but recently was at [facility] for chest pain and had ruled [...] chest pain requiring an ER visit to [facility]. Assessment was negative in the ER. [...] section and content) DATE CREATED AUTHOR 12/22/2017 [facility] DATE CREATED AUTHOR AUTHOR'S ORGANIZ ATION 04/24/2020 [facility] DATE CREATED AUTHOR AUTHOR'S ORGANIZ ATION 06/27/2020 [facility] DATE CREATED AUTHOR AUTHOR'S ORGANIZ ATION 05/12/2022 [facility] DATE CREATED AUTHOR AUTHOR'S ORGANIZ ATION 05/14/2022 [facility] DATE CREATED AUTHOR AUTHOR'S ORGANIZ ATION 09/04/2022 [facility] DATE CREATED AUTHOR AUTHOR'S ORGANIZ ATION 02/01/2023 [facility] DATE CREATED AUTHOR AUTHOR'S ORGANIZ ATION 05/02/2023 [facility] DATE CREATED AUTHOR AUTHOR'S ORGANIZ ATION 11/20/2024 [facility] DATE CREATED AUTHOR AUTHOR'S ORGANIZ ATION 01/25/2025 [facility] DATE CREATED AUTHOR AUTHOR'S ORGANIZ ATION 02/17/2025 [facility] EP[facility] DATE CREATED AUTHOR AUTHOR'S ORGANIZ ATION 02/21/2025 [facility] DATE CREATED AUTHOR AUTHOR'S ORGANIZ ATION 02/23/2025 [facility] Care Teams (unrecognized sec tion and content) [...] Butterfield DOOther ProviderActiveStart: November 09, 2024 Bryce Hendricskon MDOther ProviderActiveStart: November 09, 2024 Jayro Wilburn [...] Care Provider Active Start: November 21, 2024 Sikhism D Siebenaler , MDAdmit ProviderActiveStart: November 21, [...] Yary Johnson MDOther ProviderActiveStart: November 21, 2024 sIaiah Baliey DOOther ProviderActiveStart: November 21, 2024 Servando Kelly [...] ProviderActiveStart: November 21, 20[address] , RO[address] MENDER-COther ProviderActiveStart: November 21, 2024 Leonardo Sanchez , [...] Arvizu , JAYAOther ProviderActiveStart: November 28, 2024 Nava Oconnell , JAYAOther ProviderActiveStart: November 28, 2024 Areli Marino RNOther ProviderActiveStart: November 28, 2024 Mary Marc MDOther ProviderActiveStart: November 28, 2024 Cb dAam , DOOther ProviderActiveStart: November 28, 2024 Dylan Pozo MDOther ProviderActiveStart: November 28, 2024 Freddy Arnold , DOOther ProviderActiveStart: November 28, 2024 Guero Mott MDOther ProviderActiveStart: November 28, 2024 Yary Johnson MDOther ProviderActiveStart: November 28, 2024 Isaiah Baliey DOOther ProviderActiveStart: November 28, 2024 Servando Kelly [...] ProviderActiveStart: November 28, 20[address] , [address] MENDER-COther ProviderActiveStart: November 28, 2024 Leonardo Sanchez , [...] Status: Inactive Member Role Status Dates Sylvester aJcob DO Primary Care Provide r, Attending Provider [...] End: November 01, 2023Ana Maria Landeros APRN ROAD MENDER-CAttending ProviderActiveStart: November 01, 2023 End: November 01, 2023 Team Status: Active Member Role Status Dates NON STAFF Primary Care Provider Active Start: June 29, 2023 Aliza Quinteor ProviderActiveStart: June 29, 2023 Team Status: Inactive [...] DateEnd Date Sylvester Jacob DO [address] [place] [address] PCP - GeneralInternal Medicine06/04/20Team MemberRelationshipSpecialtyStart Date End Date Sylvester Jacob DO [address] [place] [address] PCP - GeneralInterEn[facility]06/04/20Team MemberRelationshipSpecialtyStart Date End Date Sylvester Jacob DO [address] [place] [address] [place] [address] PCP - Uwbihzd34/23/19 Team Status: Inactive Member Role Status Dates [...] Date Sylvester Jacob DO [facility]06/04/20Team MemberRelationshipSpecialtyStart Date End Date Sylvester Jacob DO PCP - Gepdfdg64/23/19 Team Status: Active Member Role Status Dates [...] DateEnd Date Sylvester Jacob DO PCP - [facility]06/04/20 Team Status: Active Member Role [...] DateEnd Date Sylvester Jacob MD [address] [place] [address] [facility]09/30/22Team MemberRelationshipSpecialtyStart Date End Date Sylvester Jacob MD [address] [place] [address] PCP - GeneralInternal Medicine09/30/22Team MemberRelationshipSpecialtyStart Date End Date Sylvester Jacob MD [address] [place] [address] PCP - GeneralInternal Medicine09/30/22Team MemberRelationshipSpecialtyStart Date End Date Sylvester Jacob DO [address] [place] [address] PCP - GeneralInternal Medicine01/05/24am MemberRelationshipSpecialtyStart Date End Date Sylvester Jacob DO [address] [place] [address] PCP - GeneralInternal Medicine01/05/24Team MemberRelationshipSpecialtyStart Date End Date Sylvester Jacob MD [address] [facility] [place] [address] PCP - GeneralInternal Medicine09/30/22Team MemberRelationshipSpecialtyStart Date End Date Sylvester Jacob MD [address] [place] [address] PCP - GeneralInternal Medicine09/30/22Team MemberRelationshipSpecialtyStart Date End Date Sylvester Jacob MD [address] [place] [address] PCP - GeneralInternal Medicine09/30/22 Team [...] Team MemberRelationshipSpecialtyStart DateEnd Date Sylvester Jacob MD [address] [place] [address] PCP - GeneralInternal Medicine09/30/22Team MemberRelationshipSpecialtyStart Date End Date Sylvester Jacob DO PCP - GeneralInternal Medicine06/04/20Team MemberRelationshipSpecialtyStart Date End Date Syvlester Jacob DO PCP - GeneralInternal Medicine06/04/20Team MemberRelationshipSpecialtyStart Date End Date Sylvester Jacob DO [address] [facility] [place] [address] PCP - GeneralInternal Medicine09/30/22Team MemberRelationshipSpecialtyStart Date End Date Sylvester Jacob, DO [address] [facility] [place] [address] PCP - GeneralInternal Medicine09/30/22Team MemberRelationshipSpecialtyStart Date End Date Sylvester Jacob DO [address] [facility] [place] [address] PCP - GeneralInternal Medicine09/30/22Team MemberRelationshipSpecialtyStart Date End Date Sylvester Jacob DO [address] [facility] [place] [address] PCP - GeneralInternal Medicine09/30/22Team MemberRelationshipSpecialtyStart Date End Date Sylvester Jacob DO [address] [facility] [place] [address] PCP - GeneralInternal Medicine09/30/22Team MemberRelationshipSpecialtyStart Date End Date Sylvester Jacob DO [address] [facility] [place] [address] PCP - GeneralInternal Medicine09/30/22 Team Status: Inactive [...] Sylvester Jacob DO [address] [place] [address] PCP - GeneralInternal Medicine01/05/24Team MemberRelationshipSpecialtyStart Date End Date Sylvester Jacob DO [address] [place] [address] PCP - GeneralInternal Medicine09/30/22Team MemberRelationshipSpecialtyStart Date End Date Sylvester Jacob DO [address] [place] [address] PCP - GeneralInternal Medicine09/30/22Team MemberRelationshipSpecialtyStart Date End Date Sylvester Jacob DO [address] [place] [address] PCP - GeneralInternal Medicine01/05/24Team MemberRelationshipSpecialtyStart Date End Date Sylvester Jacob DO [address] [place] [address] PCP - GeneralInternal Medicine09/30/22 Goals [...] (unrecogniz ed section and content) ReasonOnset DateCommentsRefill Ullafvs9505/06/2022ReasonCommentsBreast Cancer Follow upReasonCommentsFollow-up1 yearReasonCommentsPre-op Clearance6 weeks SpecialtyDiagnoses / ProceduresReferred By ContactReferred To ContactCardiology Diagnoses Mitral valve insufficiency, unspecified etiology Essential hypertension Procedures Follow Up In Cardiology Bryce Hendrickson MD [address] [facility] [address], [address] [address] Bryce Hendrickson MD [address] [facility] [address], [address] [place] [address] Referral IDStatusReasonW[place] DateExpiration DateVisits RequestedVisits [id number]/31/202310/[id number] Cancer ReasonCommentsFollow-up4 monthsSpecialtyDiagnoses / ProceduresReferred By ContactReferred To ContactCardiology Diagnoses Mitral valve insufficiency, unspecified etiology Procedures Follow Up In Cardiology Bryce Hendrickson MD [address] [place] [address] [address], [address] [address] Bryce Hendrickson MD [address] [place] [address] [address], [address] [address] Referral IDStatusLifePoint Hospitals DateExpiration DateVisits RequestedVisits [id number]/16/202311/15/094313GmecuoOfrkmosnEsznnyges MammogramReasonCommentsAllergic RhinitisNasal polyp.TinnitusSpecialtyDiagnoses / ProceduresReferred By ContactReferred To ContactOtolaryngology Diagnoses Allergic rhinitis, unspecified Polyp of nasal cavity Tinnitus, bilateral Procedures MT UNLISTED EVALUATION AND MANAGEMENT Sylvester Jacob MD [address] [place] [address] Phone: tel: Chuck Cope MD [address] [facility] [address] [place] [address] Phone: tel: fax: Referral IDStatCommunity [facility] DateExpiration DateVisits RequestedVisits [id number]/31/20244/[id number] Sinusitis Follow up XR sinuses [facility] 03/23/24SpecialtyDiagnoses / ProceduresReferred By ContactReferred To ContactCardiology Diagnoses Mitral valve insufficiency, unspecified etiology Procedures Transthoracic Echo Complete MT ECHO TTHRC R-T 2D W/WOM-MODE COMPL SPEC&COLR D Bryce Hendrickson MD [address] [place] [address] [address], [address] [address] Referral IDStatusReasonStart DateExpiration DateVisits RequestedVisits [id number] Perform Procedure [id number]-hk1 monthSpecialtyDiagnoses / ProceduresReferred By ContactReferred To ContactCardiology Diagnoses Mitral valve insufficiency, unspecified etiology Procedures Follow Up In Cardiology Bryce Hendrickson MD [address] [place] [address] 2, [place] [id number] Phone: tel: fax: Bryce Hendrickson MD [address] [facility] 2, [place] [address] Phone: tel: fax: Referral IDStatusReasonStnodaway DateExpiration DateVisits RequestedVisits [id number]/14/20243/14/965283OvatarObdvnczdCtaa careDeleonel Owen is a 73 y.o. female who presents for Nail Care.Patient relates she has been lettingher nails grow longer so she could [place] them. Last visit 12/2022. ReasonCommentsFollow-upReasonOnset DateCommentscancel fu appt for ct scan not done07/03/2024ReasonOnset DateCommentsRefill Hywrurr1708/07/2024ReasonComments Toenail CarePt is here today requesting nail [...] herfoot pain. Patient is requesting xrays today. LU4VpajiqKoyycckyPytodu-pbIcmdlgc here for 8 month follow up for hypertension.SpecialtyDiagnoses / ProceduresReferred By ContactReferred To ContactCardiology Diagnoses Mitral valve insufficiency, unspecified etiology Procedures Follow Up In Cardiology Bryce Hendrickson MD [address] [facility] [address], [address] [address] Phone: tel: fax: Bryce Hendrickson MD [address] [facility] [address], [address] [address] Phone: tel: fax: Referral IDStatusReasonStart DateExpiration DateVisits RequestedVisits [id number]/2/20251/2/882550ApeddxXatjxwgaHwwb Source Comments (unrecognize d section and content) In the event this informatio n is protected by the Federal Confidentiality of Alcohol and Drug Abuse Patient Records regulations: The Federal rules restrict any use of the information to criminally investigate or prosecute any alcohol or drug abuse patient.[facility] TroyIn the event this information is protected by the Federal Confidentiality of Alcohol and Drug Abuse Patient Records regulations: The Federal rules restrict any use of the information to criminally investigate or prosecute any alcohol or drug abuse patient.[facility] TroyIn the event this information is protected by the Federal Confidentiality of Alcohol and Drug Abuse Patient Records regulations: The Federal rules restrict any use of the information to criminally investigate or prosecute any alcohol or drug abuse patient.[facility] TroyIn the event this information is protected by the Federal Confidentiality of Alcohol and Drug Abuse Patient Records regulations: The Federal rules restrict any use of the information to criminally investigate or prosecute any alcohol or drug abuse patient.[facility] TroyIn the event this information is protected by the Federal Confidentiality of Alcohol and Drug Abuse Patient Records regulations: The Federal rules restrict any use of the information to criminally investigate or prosecute any alcohol or drug abuse patient.[facility] TroyIn the event this information is protected by the Federal Confidentiality of Alcohol and Drug Abuse Patient Records regulations: The Federal rules restrict any use of the information to criminally investigate or prosecute any alcohol or drug abuse patient.[facility] FOR RECORDS PERTAINING TO PATIENTS WHO ARE [...] BE BASED ON THE PRIMARY CLINICAL RECORDS. [employer] [facility]. provides no warranty or guarantee of the accuracy or completeness of information in this document.
== END 2025-03-02 10:51 | disposition home or self-care (01) ==
LOC: MAMMO 10:50
PROVIDERS: PCP Internal Medicine; Visit Provider Internal Medicine
DX: Z12.31 Encounter for screening mammogram for malignant neoplasm of breast (principal); Z85.3 Personal history of malignant neoplasm of breast
CPT/HCPCS: 77067

== ENCOUNTER 2025-03-26 14:11 | Outpatient (OUT) | payer MEDICARE, SELFPAY ==
--- OUTSIDE RECORDS SUMMARY | 2025-03-19 15:15 | XMS_ITS | Encounter Summary ---
Author Organization [facility] Address [address] [facility] [place] [address] Care Team Providers Care Airplane First Officer Name Role Phone Mervin Chanel DO Primary Care Provider [phone] Reason for Visit * ReasonCommentsToenail CareEstablished patient presents today for nail care. Encounter Details DateTypeDepartmentCare Team (Latest Contact Info)Ttdormqggcf63/17/2025 3:15 PM ESTProcedure Visit [facility] [address] [place] [id number] Wilfrid Olson, DPDerrek [address] [place], [place] [id number] Dermatophytosis of nail (Primary Dx); Dystrophic nail; Pain around toenail, right foot; Pain around toenail, left foot; Difficulty walking Social History Tobacco UseTypesPacks/DayYears UsedDateSmoking Tobacco: NeverSmokeless Tobacco: Never Tobacco Cessation:Counseling Given: Not Answered Alcohol UseStandard Drinks/WeekCommentsYes1 (1 standard drink = 0.6 oz pure alcohol)caffeine intake: 2-3 cups per day of diet cokeCommentsUnknownSex and Gender InformationValueDate RecordedSex Assigned at BirthNot on fileLegal MejTbnptx34/15/2023 7:03 PM EDTGender IdentityNot on fileSexual OrientationNot on filedocumented as of this encounter Last Filed Vital Signs Vital SignReadingTime TakenCommentsBlood Pressure--Pulse--Temperature-- Respiratory Rate--Oxygen Saturation--Inhaled Oxygen Concentration--Hokayk93.8 kg (156 lb)03/19/2025 3:07 PM DOXNuoefb092.5 cm (5' 2 )03/19/2025 3:07 PM ESTBody Mass Index28.5303/19/2025 3:07 PM ESTdocumented in this encounter Patient Instructions * Patient Instructions* Wilfrid Olson DPM - 03/19/2025 3:15 PM EST As noted documented in this encounter Progress Notes * Wilfrid Olson DPM - 03/19/2025 3:15 PM EST Images from the original note were not included. Subjective Patient ID: Renuka Owen is a 74 y.o. female who presents for Toenail Care (Established patient presents today for nail care. ). HPI HPI Onychomycosis/Toenail Fungus: Presents today requesting [...] 20 mg before bedtime., Disp: , Rfl: biotin 5000 MCG capsule, Take by mouth, Disp: , Rfl: calcium carbonate (Calcium 600) 600 MG tablet, Take 600 mg by mouth in the morning and 600 mg in the evening. Take with meals., Disp: , Rfl: carvedilol (Coreg) 6.25 MG tablet, Take 6.25 mg by mouth in the morning and 6.25 mg in the evening.Take with meals., Disp: , Rfl: dapagliflozin (Farxiga) 10 MG, Take 10 mg by mouth, Disp: , Rfl: fluticasone (Flonase) 50 MCG/ACT nasal spray, Administer 1 spray into each nostril Daily Shake gently. Before first use, prime pump. After use, clean tip and replace cap., Disp: , Rfl: gabapentin (Neurontin) 300 MG capsule, Take 300 mg by mouth in the morning and 300 mg in the evening and 300 mg before bedtime., Disp: , Rfl: loratadine (Claritin) 10 MG tablet, Take by mouth, Disp: , Rfl: melatonin 10 MG tablet, Take by mouth, Disp: , Rfl: metoprolol succinate XL (Toprol-XL) 25 MG 24 hr tablet, Take by mouth Do not crush or chew., Disp: , Rfl: montelukast (Singulair) 10 MG tablet, Take 1 tablet (10 mg) by mouth at bedtime, Disp: 90 tablet, Rfl: 3 omeprazole (PriLOSEC) [address] capsule, , Disp: , Rfl: tolterodine (Detrol) 1 MG tablet, Take 1 mg by mouth in the morning and 1 mg before bedtime., Disp:, Rfl: torsemide (Demadex) 10 MG tablet, Take 10 mg by mouth Daily, Disp: , Rfl: traMADol (Ultram) 50 MG tablet, Take 50 mg by mouth, Disp: , Rfl: traZODone (Desyrel) 50 MG tablet, , Disp: , Rfl: cetirizine (ZyrTEC) 10 MG tablet, Take 10 mg by mouth (Patient not taking: Reported on 03/19/2025),Disp: , Rfl: cholecalciferol (Vitamin D-3) 25 MCG (1000 UT) capsule, Take 1,000 Units by mouth Daily (Patient not taking: Reported on 03/19/2025), Disp: , Rfl: nortriptyline (Pamelor) 10 MG capsule, Take 1 capsule (10 mg) by mouth at bedtime (Patient not taking: Reported on 03/19/2025), Disp: 30 capsule, Rfl: 11 thiamine (Vitamin B-1) 100 MG tablet, Take 1 tablet (100 mg) by mouth Daily (Patient not taking: Reported on 03/19/2025), Disp: 30 tablet, Rfl: 11 Allergies Levofloxacin, Penicillins, and Atorvastatin Past Surgical History Past Surgical History: Procedure Laterality Date BACK SURGERY 1982 BREAST RECONSTRUCTION 2011 Procedure:post mastectomy radiation planned;Disease:left breast cancer CATARACT EXTRACTION 10/2021 and 12/2021 CHOLECYSTECTOMY 1976 Cholelithiasis HYSTERECTOMY 1991 KNEE ARTHROPLASTY Left 01/2007 Dr. Miranda KNEE ARTHROPLASTY 01/2007 Dr. Miranda LUMBAR DISCECTOMY 10/08/2021 L4 Sx LUMBAR FUSION 04/01/2022 L4-L5 MASTECTOMY Left 2011 SD ARTHROSCOPY KNEE DIAGNOSTIC W/WO SYNOVIAL BX SPX 1994 SD ARTHROSCOPY KNEE DIAGNOSTIC W/WO SYNOVIAL BX SPX [...] Leukemia Brother Objective General Examination: GENERAL EXAMINATION: Alert and oriented. Pleasant disposition. Vascular: DORSALIS PEDIS [...] deformity; toenail dystrophy, thickening, discoloration, mild clubbing, pincer deformity, subtotal detachment, periungual hyperkeratosis, without drainage. Left great toe: DSO/pincer toenail deformity. digits 2, 3 left foot: Toenail dystrophy, pincer deformity and clinical mycosis, 5th digits bilateral: Toenail [...] topical therapy. Hygiene and skin care measures discussed. Follow up: 3-4 months recommended Procedure: Toenail Debridement: Aseptic technique: power/manual instrumentation: [...] or corrected. Thank you for your understanding. Wilfrid Olson DPM documented in this encounter Plan of Treatment DateTypeDepartmentCare Team (Latest Contact Info)Uvaxcfqodxw04/04/2026 1:00 PM ESTProcedure Visit [facility] [address] [place] [phone] Wilfrid Olson DPM [address] [place] [address] 09/03/2025 2:30 PM EDTOffice Visit [facility] [address] [place] [address] Nba Malhotra DO [address] [place] [address] documented as of this encounter Visit Diagnoses Diagnosis Dermatophytosis of nail- Primary Dystrophic nail Other specified disease of nail Pain around toenail, right foot Pain around toenail, left foot Difficulty walking Difficulty in walking documented in this encounter Care Teams Team MemberRelationshipSpecialtyStart DateEnd Date Mervin Chanel DO [address] [place] [address] PCP - GeneralInternal Medicine09/30/22documented as of this encounter
--- OUTSIDE RECORDS SUMMARY | 2025-03-23 11:27 | XMS_ITS | Continuity of Care Document ---
Author Organization [facility] Address [address] [place] [address] Phone Care Team Providers Care [employer] Name Role Phone Mervin Chanel DO Primary Care Provider Gwen Burk CMA Attending Provider Unavaila Danyelle Nuñez MD Attending Provider Mervin Chanel DO Attending Provider [phone] Bryce Cheung MD Attending Provider Care Teams Patient Care Team Team Status: Active Member Role/Relationship Status Dates Mervin Chanel DO Primary Care Provider Active Visit Care Team Team Status: Active Member Role/Relationship Status Dates Mervin Chanel DO Primary Care Provider Active Start: January 09, 2025 Gwen Burk CMAAttchucho ProviderActiveStart: January 09, 2025 Visit Care Team Team Status: Inactive Member Role/Relationship Status Dates Mervin Chanel DO Primary Care Provider Active Start: January 11, 2025 End: January 11, 2025Jorge Ho ProviderActiveStart: January 11, 2025 End: January 11, 2025 Visit Care Team Team Status: Inactive Member Role/Relationship Status Dates Mervin Chanel DO Primary Care Provider Active Start: January 11, 2025 End: January 11, 2025Jorge Ho ProviderActiveStart: January 11, 2025 End: January 11, 2025 Visit Care Team Team Status: Inactive Member Role/Relationship Status Dates Mervin Chanel DO Primary Care Provider Active Start: January 15, 2025 End: January 15enRemy Lopez ProviderActiveStart: January 15, 2025 End: January 15, 2025 Visit Care Team Team Status: Active Member Role/Relationship Status Dates Bryce Cheung MD Attending Provider Active St art: February 28, 2025 Issac Jama Care ProviderActiveStart: February 28, 2025 Visit Care Team Team Status: Inactive Member Role/Relationship Status Dates Mervin Chanel DO Primary Care Provider Active Start: March 21, 2025 End: March 21, 2025Jorge Kitchen ProviderActiveStart: March 21, 2025 End: March 21, 2025 Patient Care Team Team Status: Inactive Member Role/Relationship Status Dates Mervin Chanel DO Primary Care Provider Active Start: March 23, 2025 End: March 23, 2025Jorge Kitchen ProviderActiveStart: March 23, 2025 End: March 23, 2025 Chief Complaint and Reason for Visit Chief Complaint Admit Date Amb Documentation January 09, 2025 1:50pm N17.9 I50.20 January 11, 2025 3:24pm Hospital F/U January 11, 2025 4:07pm [facility] follow up January 15, 2025 11:36am Pre Procedure Exam March 21, 2025 9:55am Pre Procedure Exam March 23, 2025 7:05am Reason for Visit Admit Date HFrEF (heart failure with reduced ejecti on fraction) January 11, 2025 4:07pm Acute kidney injury January 11, 2025 4:07pm Anemia January 15, 2025 11:36am Chemotherapy-induced peripheral neuropat hy January 15, 2025 11:36am Chronic kidney disease January 15, 2 025 11:36am Chronic venous insufficiency of lower ex tremity January 15, 2025 11:36am HFrEF (heart failure with reduced ejecti on fraction) January 15, 2025 11:36am Hypertension January 15, 2025 11:36am Lumbar stenosis without neurogenic my ication January 15, 2025 11:36am NICM (nonischemic cardiomyopathy) Septem wilbur 2024 11:36am Opiate analgesic use agreement exists Se ptember 2024 11:36am Unsteady gait when walking January 11:36am Allergies, Adverse Reactions, Alerts Allergen Type Severity Reaction Last Updated Verified Status atorvastatin Allergy Unknown Hives March 7:36am Yes Active levofloxacin Allergy Unknown Unknown Reaction Novemb er 2024 7:36am Yes Active Penicillins Allergy Unknown Hives March 7:36am Yes Active Social History Smoking Status Status Start Date End Date Date of Observa tion Never smoked tobacco (finding) March 23, 2025 7:30am Observation Status Observation Response Date of Response Legal Sex [facility] (finding) [facility] Family [facility] Relationship Condition Age at Onset Recorded Date/T demetria mother Malignant neoplasm of breast Unknown fatherMalignant neoplasm of testicleUnknownDeceasedUnknownbrotherLeukemiaUnknown Problems Active Problems Problem Diagnosis/Recorded Date Onset Date Status C omments 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, 2024 2:58pm Unknown Active Cervical spondylosis with radiculopathyDecember 2023 2:55pmUnknownActive HFrEF (heart failure with reduced ejection fraction)November 07, 2024 3:50pmUnknown ActiveEcho: LVEF 25-30%, normal RV size/function - hronic venous insufficiency of lower extremityMay 2023 3:07pmUnknownActiveUnsteady gait when walkingJanuary 2024 6:37pmUnknownActiveNocturnal leg crampsMay 2023 3:06pmUnknownActiveImpaired mobility and activities of daily livingFebruary 2024 11:28amUnknownActiveSpondylolisthesis, lumbar regionFebruary 2023 11:13amUnknownActivePes anserinus bursitis of left kneeFebruary 2024 10:46amUnknownActiveFatigueMay 2024 9:58amUnknownActiveHematomaJuly 2024 9:38pmUnknownActiveOsteoporosisMay 2021 9:26amUnknownActiveDEXA - 01/2025Orthostatic hypotensionDecember 2023 10:35pmUnknownActive occasionallyOpiate analgesic use agreement existsMay 2024 10:02amUnknown ActiveAnemiaDecember 2023 3:57pmUnknownActiveContusionJanuary 2024 3:07pmUnknownActiveHistory of total left knee replacementFebruary 2024 12:43pmUnknownActiveDyspneaMay 2024 9:59amUnknownActiveMitral regurgitation April 11, 2024 10:33pmUnknownActiveNICM (nonischemic cardiomyopathy) January 15, 2025 8:10pmUnknownActiveChronic kidney diseaseJanuary 2024 4:04pmUnknownActiveHistory of lumbar fusionOctober 2023 12:26pmUnknown ActiveInflammation of right sacroiliac jointMarch 2023 10:12amUnknown ActiveChemotherapy-induced peripheral neuropathyMay 2023 9:08pmUnknown ActiveAbnormal CT of the abdomenJuly 2024 7:15amUnknownActiveChronic back painJuly 2024 2:47pmUnknownActiveRight hand weaknessMay 2024 2:45pm UnknownActiveNeck painDecember 2023 2:55pmUnknownActiveGERD (gastroesophageal reflux disease)March 16, 2022 11:07amUnknownActive HypertensionDecember 2023 10:33pmUnknownActiveLeft bundle branch block March 16, 2022 11:06amUnknownActiveLumbar stenosis without neurogenic claudicationJune 2021 6:37amUnknownActiveInactive/Resolved Problems Problem Diagnosis/Recorded Date Onset Date Status C omments Acute kidney injury April 07, 2024 8:40pm Unknown R esolved LATANYA (acute kidney injury)November 02, 2024 2:19pmUnknownResolvedCandida cystitis November 13, 2024 11:14amUnknownResolvedAcute hypotensionJuly 2024 2:19pm UnknownResolvedElevated liver transaminase levelJuly 2024 7:15amUnknown ResolvedMetabolic encephalopathyJuly 2024 4:25pmUnknownResolvedSeptic shock November 02, 2024 4:23pmUnknownResolvedDiarrheaDecember 2023 6:04pmUnknown ResolvedAltered mental statusJuly 2024 2:19pmUnknownResolvedPancolitisJuly 2024 2:11ukDckycejObuiksmdXpnfe-xy-uclrexm kidney injuryJanuary 2024 3:07pmUnknownResolvedFallDecember 2023 6:04pmUnknownResolvedHypokalemia June 03, 2024 10:28amUnknownResolved Medications Medication Status Dose Units Route Directions Qty Days Refills S tart Date Stop Date End Date Reason(s) Instructions Adherence Carvedilol 6.25 mg tablet Discontinued 0 .ROUTE.[id number] 2023 1:53pmJanuary 2024 7:24amTAKE 1 TABLET BY MOUTH TWICE A DAYTolterodine 2 mg mhdybhAbuhdnzboidy1NVCAGqqil daily60 3011March 2023 9:14amMay 2023 6:32amBaclofen 20 mg tabletDiscontinued 20MGPODaily at fbtluqy43406Osmud 2023 6:48pmMay 2023 12:12pmBaclofen 20 mg tabletDiscontinued0.ROUTE.DHCMNKM911Abi 2023 12:12pmJanuary 2024 7:24amTAKE 1 TABLET BY MOUTH EVERYDAY AT BEDTIMETramadol 50 mg tablet Mnuvqvtoyxro53XYBLBlrkj 6 sizhq38469Kdie 2023 5:08pmDecember 2023 5:45pmSpondylosis of lumbar spine Spondylosis without myelopathy or radiculopathy, lumbar regionFluticasone Propionate 50 mcg/actuation spray,hwuyjvlhvuQvqxolldewfq8HCEFHTDDDMIAOEBKnrhw as needed for Nasal Omxjfyghzq83817Efcsgw 2023 12:23pmSeptember 2023 7:38amTrazodone 50 mg bmrtepBaevlkacqsqz75HUHSRcaxf at bedtime as neededAugust 2023 11:00pmAugust 2023 12:35pm1/2 to 1 tabletTrazodone 50 mg tablet Discontinued0.ROUTE.MPYDXWY764Dhnhmg 2023 12:35pmDecember 2023 5:45pm TAKE 1/2 - 1 TABLET BY MOUTH EVERYDAY AT BEDTIMEFluticasone Propionate 50 mcg/actuation spray,suspensionDiscontinued0.ROUTE.TPROEUF927Kelcwpffc 2023 7:38amJune 2024 7:37amUSE 2 SPRAYS IN EACH NOSTRIL ONCE A DAY NEEDED FOR NASAL CONGESTIONOmeprazole 40 mg capsule,delayed release(DR/EC)Discontinued0 .ROUTE.LHKZFEG655Gfuijgm 2023 7:39amJuly 2024 5:00pmTAKE 1 CAPSULE BY MOUTH ONCE A DAY ON EMPTY STOMACH FOLLOWED IN 30 MINUTES BY BREAKFAST FOR 90 DAYSCarvedilol 6.25 mg tabletDiscontinued0.ROUTE.VMQTZSI4998Kwkidkg 2024 7:24amFebruary 2024 1:27pmTAKE 1 TABLET BY MOUTH TWICE A DAYBaclofen 20 mg tabletDiscontinued0.ROUTE.YWMBFAE891Ujhadxx 2024 7:24amJuly 2024 2:26pmTAKE 1 TABLET BY MOUTH EVERYDAY AT BEDTIMETramadol 50 mg tablet Dziebaiefieo37RYAUHerpf 6 hours as needed for jacj66869Yrpvaozn 2024 11:12amFebruary 2024 8:54pmSpinal stenosis of lumbar region without neurogenic claudication Spinal stenosis, lumbar region without neurogenic claudicationTramadol 50 mg gbfbnpGmmgygcltgvx07QLCEBykyh 6 hours as needed for scox52749Tpgmxkkx 2024 8:53pmFebruary 2024 5:31pmSpinal stenosis of lumbar region without neurogenic claudication Spinal stenosis, lumbar region without neurogenic claudicationTramadol 50 mg osxmirPgsxolgfufcb33VUQTSofhg 6 hours as needed for nlcs76134Gfhktclf 2024 5:31pmFebruary 2024 9:17pmSpinal stenosis of lumbar region without neurogenic claudication Spinal stenosis, lumbar region without neurogenic claudicationTramadol 50 mg bmscyjFasfpdzvbsik06UBRMZwchv 6 hours as needed for stnu27071Frvmmemb 2024 9:17pmMarch 2024 12:01pmSpinal stenosis of lumbar region without neurogenic claudication Spinal stenosis, lumbar region without neurogenic claudicationTrazodone 50 mg tabletDiscontinued0.ROUTE.GUGVFML247Jbsapkqz 2024 7:08amMay 2024 11:04amTAKE 1/2 - 1 TABLET BY MOUTH EVERYDAY AT BEDTIMEMetoprolol Tartrate 25 mg isblhrOhuoheqkdzzx01METNLhyqmOfbjvkyi 2024 12:00amFebruary 2024 9:02pmMetoprolol Tartrate 25 mg emcyoeKobmhpxwgbkk66MDCONewtq15157Wippjuvu 2024 9:01pmMarch 2024 3:35pmTolterodine 1 mg ksardhKzxvjuigjmlt3HUOYOwmgx vanfw99126Ayxvi 2024 12:00amMarch 2024 2:43pmTramadol 50 mg tablet Smquphlqprie73LJFSFjltu 6 hours as needed for bgmp92096Kyurc 2024 12:00pm August 16, 2024 4:45pmSpinal stenosis of lumbar region without neurogenic claudication Spinal stenosis, lumbar region without neurogenic claudicationMetoprolol Succinate 25 mg tablet extended release 24 hrDiscontinued0.ROUTE.WHRTTHR723Jiwpf 2024 3:35pmJuly 2024 2:26pmTAKE 1 TABLET BY MOUTH EVERY DAY Tolterodine 1 mg tabletActive0.ROUTE.XALVAPC3598Mwsbk 2024 2:43pmTAKE 1 TABLET BY MOUTH TWICE A DAYComplies with drug therapyTramadol 50 mg tablet Rpjxyrhiwcfa78FPFTPxrlc 6 hours as needed for pybe84845Ujpla 2024 4:44pm November 14, 2024 2:26pmSpinal stenosis of lumbar region without neurogenic claudication Spinal stenosis, lumbar region without neurogenic claudicationLisinopril 2.5 mg tabletDiscontinued2.0BYXVXebst76868Kbsrc 2024 8:08amJuly 2024 2:26pm Torsemide 20 mg lruqqoBqcdlqgovmlz71MZHVHglfk22200Zum 2024 11:48amJuly 2024 2:26pmFluticasone Propionate 50 mcg/actuation spray,suspensionActive0 .ROUTE.FWBGPBR664Sybz 2024 7:37amUSE 2 SPRAYS IN EACH NOSTRIL ONCE A DAY NEEDED FOR NASAL CONGESTIONComplies with drug therapyTramadol 50 mg tablet Bwjijtyusnkv33OIDDKorfg 8 hours as needed for qpkg85712Iwwkdp 2024 11:00pm March 21, 2025 7:00pmSpondylolisthesis of lumbar region Pain of hand Spondylolisthesis, lumbar region Pain in unspecified handTrazodone 50 mg tabletActive0.ROUTE.DVHWEBW621Eirlqj 2024 5:14pmTAKE 1/2 - 1 TABLET BY MOUTH EVERYDAY AT BEDTIMEComplies with drug therapyDapagliflozin Propanediol 10 mg egfqmiRwxncwaodlqa10MQXXFaknw785 January 09, 2025 3:12pmNovember 2024 10:55amMetoprolol Succinate 25 mg tablet extended release 24 hrDiscontinued0.ROUTE.RQDLUVQ447Wwcnbwlow 2024 6:35amNovember 2024 10:55amTAKE 1 TABLET BY MOUTH EVERY DAYPantoprazole 40 mg tablet,delayed release (DR/EC)Hkrranoghrot23YEJKFerxr79507Tmbutfmt 2024 10:22amNovember 2024 10:55amBaclofen 20 mg piodxxMbjlob73JTTBKtjtd as needed for muscle leem25310Cfhvbzfp 13th, 2025 12:59pmComplies with drug therapy Tramadol 50 mg aosikoEhewaldrqrbo00BADKFcoej 8 hours as needed for rejn33577 March 21, 2025 7:00pmNovember 2024 7:40amSpondylolisthesis of lumbar region Pain of hand Spondylolisthesis, lumbar region Pain in unspecified handAcetaminophen 500 mg UlwsqeByjcjtiqlcgy463UXKMW8M as needed for PainMay 2021 11:00pmDece2022 8:14amTake with tramadolGabapentin 300 mg capsuleDiscontinuedMGMay 2021 11:00pmMay 2021 9:46amGabapentin 300 mg wcpxtesJsbluriwchjd738HZRCZAN@1400,2200May 2021 11:00pmDeceer 2023 2:55pmnerve painCalcium Carbonate-Vitamin D3 (Calcium 600 + D(3)) 600 mg-10 mcg (400 unit) GqznylYhmrvhrultig6IILJEGeebv dailyNjy 2021 11:00pm[facility]20[facility] 10:49amosteoporosis Cyclobenzaprine 10 mg bpmkyaOqsijvwvapqs19OMZOZskbo times daily as needed for back cvbwby388Wjew 2021 11:00pm[facility]2021 10:58amCephalexin 500 mg vjbntiqZyizhtbfudrc355EOHCTtdes times mtrmf679Qlil 2021 11:00pm[facility]2021 10:56amOxycodone 5 mg TabletDiscontinued5 - 01NJIQS0D as needed for Dqpm0856Sgnz 2021Nov2021 11:00amSpinal stenosis of lumbar region without neurogenic claudication Spinal stenosis, lumbar region without neurogenic claudicationPrednisone 10 mg tablets,dose siryPyufwhzibiyy5uhqt pkPOper package qaeevjlhfh877Rfzf 2021 11:00pmMarch 16, 2022 11:00amtake 4 tabs for 3 days then take 3 tabs for 3 days then take 2 tabs for 3 days then take 1 tab for 3 daysOxybutynin Chloride 15 mg tablet extended release 24hr Nrpkusaqzptb13PECLEnqxxJalrhprz 14th, 2022 12:00amNove2022 1:38pm Tramadol 50 mg ybmldeFleacanfonzi15UWUGLjgwq dailyAs[facility]2021 12:00am April 01, 2022 10:36amMelatonin 10 mg LgjxuyLzqetn28ZNPRIdodcnu as needed for SleepAshe Memorial Hospital2021 12:00amComplies with drug therapyCyclobenzaprine 10 mg hchxtpNymwwzclknoe81AQMABrura times daily as needed for back bctasm836 April 01, 2022 12:00[facility] 2022 1:36pmSulfamethoxazole- Trimethoprim (Bactrim Ds) 800-160 mg ltxhlsOqxxqgyxojnw8PUSJUJ21B936Zuhnfufu 30th, 2022 12:00[facility] 2022 1:39pmOxycodone 5 mg tabletDiscontinued5 - 06MQORF7N as needed for Hncv8470OkkkhatpApril 01, 2022Nov2022 1:38pm Spinal stenosis of lumbar region without neurogenic claudication Spinal stenosis, lumbar region without neurogenic claudicationPrednisone 10 mg tablets,dose rzipDvabsjsxojrt1wfze pkPOper package fwhopvcxxg823Klplgnmu 30th, 2022 12:00[facility]2022 1:38pmtake 4 tabs for 3 days then take 3 tabs for 3 days then take 2 tabs for 3 days then take 1 tab for 3 daysTorsemide 20 mg pmuidkQrtdgamwamqy50GDVJTmpehLtjqeejk 24th, 2023 12:00amMarc 2024 1:56pmTrazodone 50 mg rftlslTalpjwfrtnjr67FELO Daily at bedtime as needed for sleeplessnessMarch 26, 2023 12:00am2022 2:08pmEnalapril Maleate 2.5 mg tabletDiscontinued2.5MGPOTwice daily March 26, 2023 12:00[facility] 2024 1:49pmOn Hold: Resume on 06/12/24. Tramadol 50 mg yhffpbSxbeyuoutzxg27ZPIAU7U as needed for PainMarch 26, 2023 12:00amDece2022 8:14amBaclofen 20 mg MlqghrHaptmnrkrpic08YWSKBnsww at bedtimeAs[facility] Hospital2022 12:00amDece2022 8:14amAspirin 81 mg Tablet,Delayed Release (Dr/Ec)Ojauticnqdoi06DEGNUkyfw 2022 12:00amNove2024 11:33amAcetaminophen (Tylenol) 325 mg Tablet Vvxjjuwdwtqk110RMSWY3V as needed for Mild Mzew03Zoicrkvi2022 12:00am April 19, 2023 2:08pmCyclobenzaprine 10 mg RnxqdmRoepghhlohsk95UUOHJlfco 8 raktn62Ajhpjypo 14th, 2023 12:00amcember 2022 4:33pmAlum-Mag Hydroxide- Simeth (Mag-Al Plus) 200-200-20 mg/5 mL VvrgqprtvuZtjkdlyuwizq10UTOZU8W as needed for Mknzkrwip47Qgedocct2022 12:00cemb2022 2:08pm Magnesium Hydroxide (Milk Of Magnesia) 400 mg/5 mL PhgaixqzfaUnotjhrledzt29COOA Bedtime as needed for Crscufnywncb48Gwgmlvck 14th, 2023 12:00cemb2022 2:08pmSennosides-Docusate Sodium 8.6-50 mg VzeerwFxzyeqmvjiqf3CJEGNBykgu sdeda32Ztfclbbw2022 12:00ammb2022 2:07pmOxycodone 5 mg EhkevtDtaowdzwzxfc4GBLSKvfvf 6 hours as needed for Pain Scale 1 - 500December , 2022 4:34pmOxycodone 5 mg HhcsdbHacizxufrtkp44XXBDNgcow 6 hours as needed for Pain Scale 6 - 1000December , mber 2022 4:34pmCyclobenzaprine 10 mg wfqptuHmqhsdlochnd23ETADTlhhm 8 hours as needed for SpasmsDmb2022 4:33pmDecemb2022 2:07pmOxycodone 5 mg tablet Nbhcryfkkgnx3ZHZWCatmk 6 hours as needed for Pain Scale 4-6Decemb2022 4:33pmDecember 2022 2:08pmOxycodone 5 mg dwgpuaUdbcyqpdhvum42ONFODrdfy 6 hours as needed for Pain Scale 7-10Dember 2022 4:33pmDecember 2022 2:08pmAcetaminophen 500 mg EskaeyBsnutjvlnwvx824ATKWZ2H as needed for Pain00 April 19, 2023 12:00amJuly 2024 4:57pmCyclobenzaprine 10 mg tablet Wymcnyqdturq25YADJIappf 8 hours as needed for Usgksg44523Gvsfcotl2022 2:07pmMay 2023 6:30amSennosides-Docusate Sodium 8.6-50 mg Tablet Bpwlfhcwennu4KYICLMqyea gbqfd633435Qdzkztjq 18th, 2023 2:07pmDecember 2023 5:39pmOxycodone 5 mg bucpcoDrkyfuxfanwd4BNTFGrfvz 6 hours as needed for Pain (Scale Score 7-10)2022Ma2023 6:31amPostoperative pain Other acute postprocedural painMontelukast 10 mg oevhgeUhruav77ZCETLnzkiam June 01, 2024 12:00amComplies with drug therapyCarvedilol 3.125 mg Tablet Discontinued3.125MGPOTwice daily with fweux33261Pkxjjsok 2024 12:00am June 29, 2024 10:07amTrazodone 100 mg HfzzdxEkbolmzjvsma023SAVOVkgqtts0300 0February 2024 12:00amFebruary 2024 7:08amCarvedilol (Coreg) 6.25 mg tabletDiscontinued6.25MGPOTwice dailyJuly 2024 11:00pmJuly 2024 2:26pmmust administer with a meal/foodNortriptyline 10 mg aifkvyiUlduzwdyabvl01 MGPODaily at bedtimeJuly 2024 11:00pmSeptember 2024 11:11amFurosemide 40 mg HbxqjeMhplbnygyvdr70CZKKSdtso at 272113Dyog 2024 11:00pmJuly 2024 9:32amEnalapril Maleate (Vasotec) 5 mg VvafgmZdkryekfrlyg1EXLMJqbsm dailyNovember 13, 2024 11:00pmSeptember 2024 3:14pmOn Hold: HOLD given low BPs. May need to discontinue completely. F/u with PCPPantoprazole 40 mg Tablet,Delayed Release (Dr/Ec)Dijfjjgeufyh50CFOAYtgex74Cvma 14th, 2025 11:00pm March 08, 2025 10:22amGabapentin 100 mg MyqckntTjkljiazgaeo524KUPQIhzsw53 November 13, 2024 11:00pmSeptember 2024 1:54pmMetoprolol Succinate 25 mg Tablet Extended Release 24 CxJajfeeijktjs21BFYZHibsf25Xflj 14th, 2025 11:00pm November 30, 2024 9:32amDapagliflozin Propanediol 5 mg JgdrqgRyndpwexstsq8AQCP Pgqdr88Wztj2024 11:00pmSeptember 2024 3:14pmFluconazole 200 mg ovkcaiWvwnnenetfbn243JMGLZkqxj046Bbjv 2024 11:00pmly 2024 9:32am Magnesium Oxide 400 mg (241.3 mg magnesium) VwiqmuYmqjyyjqvejd340BJEAPulcy19Ycfw 14th, 2025 11:00pmSeptember 2024 3:19pmTrazodone 50 mg TabletDiscontinued 50MGPODaily at lnkkgou37Tzjm2024 11:00pmAugust 2024 5:14pm Acetaminophen 500 mg PoyyabPwapwv088TJCXL9R as needed for Alby04Nmhj2024 11:00pmComplies with drug therapyHydrocortisone 2.5 % SdfswaZsfmmieyqeis5CCBLZN TOPICALFour times daily as needed for jxfilos76Usdd2024 11:00pmSeptember 2024 3:19pmDocusate Sodium 100 mg SornqtvAnueuy716ZRHYRshzh daily as needed for Yotvtfypkpmu00Qlcg 30th, 2025 11:00pmComplies with drug therapy Furosemide 20 mg DvcieyAkddrwjiiubq70ZMVBLifdu at 162854SaitNovember 29, 2024 11:00pm January 15, 2025 11:04amMetoprolol Succinate 25 mg Tablet Extended Release 24 HmJdzyvdeduffd18ZYNKGlrts21Wytz 30th, 2025 11:00pmSeptember 15th, 2025 6:35am Cyclosporine 0.05 % KjhzigrshsaYcxqdz6XZFNLTBY-AZBRFmjtc 12 bevqu34Lnjs2024 11:00pmComplies with drug therapyFerrous Sulfate 324 mg (65 mg iron) Tablet,Delayed Release (Dr/Ec)Bhyhquyvlolk135RKCPUmdhb02Kbgx 30th, 2025 11:00pm January 11, 2025 3:19pmVits A And D-White Pet-Lanolin OintmentDiscontinued1 APPLICTOPICALTwice uzjts90Wmzf2024 11:00pmpt2024 3:21pm Psyllium Husk (Metamucil Fiber (Aspartame)) 3.4 gram Powder In Packet Lahbyetogblx3ZBMSCJSTTdvaj01Jzja 30th, 2025 11:00pmpt2024 3:20pm Docusate Sodium (Enemeez) 283 mg/5 mL UbrtdAijysxvlinho624VHNDZnpfv as needed for Rzwnntkstsuk26Wmuo 30th, 2025 11:00pmAugust 2024 8:22amLatanoprost 0.005 % sysqbLxymggnicjyq7KLECNPXN-ITEGXkthfAhmu 2020 11:00pmNovember 2021 10:59amCarvedilol 6.25 mg tabletDiscontinued6.25MGPOTwice dailyJune 2020 11:00pmFebruary 2023 1:53pmGabapentin 600 mg DoifakJcidqluikqzt981SO PODaily at bedtimeJune 2020 11:00pmMay 2021 9:44amneuropathic pain Tramadol 50 mg vxkmadHoawguheffdl99XEVCSfgxa dailyJune 2020 11:00pmJune 2021 11:22amBaclofen 20 mg yyjgmmPjldkjvlqvul50PVRXYvekqskNthr 2020 11:00pmNovember 2021 10:36amGabapentin 300 mg cdxztoiAlopchkmejjz337PDEN Every morningJune 2020 11:00pmDeceer 2023 5:36pmneuropathic pain Omeprazole 20 mg capsule,delayed release(DR/EC)Qkycbhipmavj18QRQXIojycFzxs 2020 11:00pmOctober 2023 7:40amHydrochlorothiazide 25 mg tablet Stvyjjiwjqes75RFOPCitlrOohr 2020 11:00pmDecember 2022 2:08pm Fluticasone Propionate 50 mcg/actuation spray,dmrpizujwjXrfqaewgkvfh8OWEGT INTRANASALDaily as needed for Nasal CongestionJune 2020 11:00pmAugust 2023 12:24pmTrazodone 50 mg uuesdpPttgbgkuyfsf40ZDIVHyhiijpVmvhkwlj 2023 12:00amFebruary 2024 1:27pmTramadol 50 mg aftkieEfctmhmscilr54IWIYBlasx 6 hours as needed for painDecember 2023 12:00amDecember 2023 3:51pm Torsemide 10 mg bgbsgtElsydwqmomfs88JLKJTeteqAcwudzpr 2023 12:00amJanuary 2024 2:28pmOn Hold: Resume on 04/16/24. Please hold until seen by your PCP/cardiology.Pantoprazole 40 mg tablet,delayed release (DR/EC)Mnrupf65SDTA [facility] morningU[facility] 2024 12:00amComplies with drug therapyMetoprolol Succinate 25 mg tablet extended release 24 ipQzxbbg60QBEUHkmkw [facility] 2024 12:00amTAKE 1 TABLET BY MOUTH EVERY DAYComplies with drug therapy Lisinopril 2.5 mg tabletActive2.5MGPOEvery [facility] 2024 12:00am Complies with drug therapyDapagliflozin Propanediol 10 mg ocdwzaPvbuif75CPFO Every morningU[facility] 2024 12:00amComplies with drug therapyTolterodine 2 mg grwmyuJstpkjxzaghd9FJWAEiwpt dailyMar 2023 11:00pmMarch 2023 9:14amBaclofen 20 mg qgelyqBqvuyxkckvji88BTQUZlehz at bedtimeApril 2023 11:00pmApril 2023 6:49pmDoxycycline Hyclate 100 mg blcbqqNhiqotllhtvr813FT POTwice xjcuw74599Rlsi 2023 11:00pmDeceaurora east hospital 2023 2:26pmSinusitis Chronic sinusitis, unspecifiedDoxycycline Monohydrate 100 mg capsuleDiscontinued 100MGPOTwice dailyDe2023 12:00amJanuary 2024 7:01pmMetolazone 2.5 mg tabletDiscontinued2.5MGPODailyDece2023 12:00amMarch 2024 1:51pmOn Hold: Resume on 06/12/24.Gabapentin 300 mg tbacnfyRabdzvyrfilt361GSUR Three times dailyDecorewell health [facility]2023 2:41pmMarch 2024 1:56pmnerve pain Tramadol 50 mg opkoreEufibofswlba91FRCYRstmp 6 hours as needed for nobq57902 April 12, 2024 3:49pmFebruary 2024 11:13amSpinal stenosis of lumbar region without neurogenic claudication Spinal stenosis, lumbar region without neurogenic claudicationMethylprednisolone (Medrol (Jeremy)) 4 mg tablets,dose qdlhQzfrtiludwut3BPeep package ywecdoveev937 June 29, 2024 12:00amMarch 2024 10:16amPO PER PKG DIR for 6 days Gabapentin 300 mg ojcivruZwiifnuttiba963VNPZJxzlq dailyAdena [facility] 2024 1:50pm July 03, 2024 4:40pmnerve painTorsemide 20 mg otcxjcTdbinxaqjinc53XGDH.QOD July 03, 2024 1:51pmMay 2024 11:49amLisinopril 2.5 mg tabletDiscontinued 2.2LCJWSsyms10350Qjbth 2024 12:00amApril 2024 8:09amGabapentin 300 mg fskypcyMwybznvdarjm349PQDS.COMPLEXMar 2024 2:35pmMa2024 11:04am nerve cpza789 mg orally;Mirabegron (Myrbetriq) 25 mg tablet extended release 24 gyWcehmdrrnitv81MGWMJviiu10265Musah 2024 12:00amMarch 2024 11:58am Gabapentin 300 mg kqjjvtfQrsgahbyftlc644BVUHUozr times ewxsy675533Zrp 2024 10:59amJuly 2024 2:26pmnerve painTrazodone 50 mg agffluMctzbohgdxbt348PQVR Daily at ctmhxxf456451Nph 2024 11:03amJuly 2024 2:26pmFurosemide 20 mg lbnrboBgufdu84TMXCYhcyu daily as needed for zkczb67799Tdtpludjf 2024 11:00amComplies with drug therapyGabapentin 100 mg cvizlrzChkgtw730JGKFSqkoo367 January 15, 2025 11:11amComplies with drug therapyLisinopril 2.5 mg tablet Discontinued2.2ABWXTrfdj02231Ntrhjlsay 2024 11:14amNovember 2024 10:55amTramadol 50 mg euiowoCuuvvdwzjwyr07NJCZOnoyl 6 hoursFebruary 2023 12:00amJune 2023 5:10pmThiamine Hcl (Vitamin B1) 100 mg lynctvBsmfxa238UW POEvery morningSeptember 2024 11:00pmComplies with drug therapy Immunizations Immunization Event Date Not Given Reason Dose Number Copyright Clerk Lot Number Reason(s) Given Vaccine Information Statement (VIS) Detail Administration [facility] Age 5-11 January COVID-19 mRNA-1273 (Moderna)May 10OVID-19 mRNA, Comirnaty (SOPATec) June 10OVID-19 mRNA, Comirnaty (SOPATec)August 28OVID-19 mRNA, Comirnaty (Pfizer)July 01OVID19 mRNA, Comirnaty (Pfizer) January 28OVI Comirnaty (SOPATec) Tri-Sucrose +August 28, 2021 COVID-19 mRNA Bivalent Booster (SOPATec)February 25OVID (Spine Wave) 2023 12Y and olderSeptember 2022Quadrivalent Influenza (mdv)April 02, 2016Fluzone TIV High-Dose 65YR+February 02, 2017Fluzone TIV High-Dose 65YR+ February 17, 2018Fluzone TIV High-Dose 65YR+January 15, [id number] [facility] AllianceFluzone QIV High-Dose 65YR+January 28, 2021Influenza vaccine, quadrivalent, adjuvantedSeptember 2021Influenza vaccine, quadrivalent, adjuvantedSeptember 2022influenza, unspecified formulationJanuary , 2016influenza, unspecified formulationOctober , 2018influenza, unspecified formulationSeptember , 2019influenza, unspecified formulationSeptember , neumococcal Conjugate Vaccine, 13 valentMay 16, 2015Pneumococcal Conjugate Vaccine, 13 valentJanuary 9, 3Pneumococcal Polysacc. Vaccine, 23 valentOctober , 2013Pneumococcal Polysacc. Vaccine, 23 valentMarch , neumococcal Polysacc. Vaccine, 23 valentOctober , 2012Pneumococcal Polysacc. Vaccine, 23 valentJanuary , 2016Pneumococcal Polysacc. Vaccine, 23 valentOctober , 2016Quadrivalent InfluenzaJanuary , 2016Quadrivalent InfluenzaOctober , 2016Quadrivalent InfluenzaFebruary , 2017Quadrivalent InfluenzaOctober , 2018Quadrivalent InfluenzaOctober , 2019Zoster Vaccine Recombinant, AdjuvantedOct2019Zoster Vaccine Recombinant, Adjuvanted May 27, 2020Tetanus, Diphtheria adult, 5 Lf pres free absOctober 2013Trivalent Influenza VaccineSeptember hingles (Zoster)February 28, 2020Shingles (Zoster)May 27, 2020 Medical Equipment Device Date Implanted Date Explanted Device Deta ils Spinal fusion graft kit March 30, 2022 LINDA: ()[id number] spinal fusion cage, non-sterileNovember 2021UDI: ()[id number] fusion graft kitDecember 2022UDI: ()[id number] Polymeric spinal fusion cage, sterileDecember 2022UDI: [id number]-screw internal spinal fixation system, non-sterileDecember 2022UDI: +[id number]-wgmrz internal spinal fixation system, non-sterileDecember 2022UDI: +[id number]-prqke internal spinal fixation system, non-sterileDecember 2022UDI: +[id number]-hzcqw internal spinal fixation system, non-sterileDecember 2022UDI: +[id number]-dshva internal spinal fixation system, non-sterileDecember 2022UDI: +[id number]-xqwlx internal spinal fixation system, non-sterileDecember 2022UDI: +[id number]-ezriq internal spinal fixation system, non-sterileDecember 2022UDI: +[id number]-qfiqs internal spinal fixation system, non-sterileDecember 2022UDI: +[id number]-pvunm internal spinal fixation system, non-sterileDecember 2022UDI: +[id number]-yqjiz internal spinal fixation system, non-sterileDecember 2022UDI: +[id number]-yousq internal spinal fixation system, non-sterileNovember 2022UDI: +[id number]-meufv internal spinal fixation system, non-sterile March 30mber 2022UDI: +[id number]-jlfyo internal spinal fixation system, non-sterileNovember mb2022UDI: +[id number]-oyrky internal spinal fixation system, non-sterileNovember mb2022UDI: +[id number]-gmpvy internal spinal fixation system, non-sterileNovember mber 2022UDI: +[id number]-inbkt internal spinal fixation system, non-sterileNovember , 2022UDI: +[id number]-sekcu internal spinal fixation system, non-sterileNovember , 2022UDI: +[id number]-jytuv internal spinal fixation system, non-sterileNovember , 2022UDI: +[id number]-qlulk internal spinal fixation system, non-sterileNovember , 2022UDI: +[id number]-eppdv internal spinal fixation system, non-sterileNovember , 2022UDI: +[id number] Procedures Procedure Date Performed Status OR DASHAWN W/IV Sedation (Not Applicable) March 042024 9:05am completed [facility] Angio March 23, 2025 11:15am c ompleted Procedure Notes Author Bryce Cheung [facility] Date/TimeMarch 23, 2025 11:29am [place] [address] Cardiac Catheterization Note Signed Patient: Renuka Owen MR#: [id number] : 1950 Acct:[id number] Age/Sex: 74 / F Adm Date: 5 Loc: [place] Room: Type: [facility] Attending Dr: Bryce Cheung MD Copies to: DO Bryce Jama MD, [facility]~ Cardiac Catheterization (Left) DATE/PROVIDER 03/23/2025 Bryce Cheung MD INDICATION Mitral valve regurgitation, valve repair is considered PRE PROCEDURE Frailty Scale: Well ASA Classification: 2 Mallampati Score: Class II POST PROCEDURE Cardiology Post-Op Diagnosis: Other (Normal coronary arteries, mild LV systolic dysfunction, moderate mitral regurgitation) PROCEDURE PROCEDURE MEDICATIONS: Versed 1 mg intravenously Approach: Femoral - Rt 1???left heart catheterization 2???left and right coronary angiography 3???conscious sedation PROCEDURE DETAILS After obtaining informed consent the patient was brought to the cardiac [employer] [facility]. The right groin was prepped and draped in normal sterile fashion. 1% lidocaine was used for local anesthesia. A 4 Montserratian SideArm sheath was placed in the right femoral artery without difficulties. A 4 Montserratian JL 4 catheter was advanced over the wire and selectively engaged in the left main coronary artery and multiple injections were taken. The catheter was exchanged over the wire with a 4 Montserratian 3 DRC catheter which was selectively engaged in the right coronary artery and 2 injections were taken. The catheter was exchanged over the wire with a 4 Montserratian angled pigtail catheter which was positioned in the left ve ntricle and pressure was measured followed by LV gram at 30 degrees DAVIS injection rate 12 cc/s for 2 seconds. The catheter was flushed and pulled into the ascending aorta and was removed over the wire. The patient tolerated procedure very well without any complications and was transferred to the rec overy room in stable condition. HEMOSTASIS Manual compression the [employer] SUMMARY OF FINDINGS CCS Classification: No symptoms Dominance: Right Left Main %: 0 LAD-Prox % Stenosis: 0 LAD- Mid- % Stenosis: 0 LAD-Distal- % Stenosis: 0 Diag 1st - % Stenosis: 0 CIRC- Prox % Stenosis: 0 CIRC- Mid - % Stenosis: 0 CIRC- Distal- & Stenosis: 0 OM-1 -% Stenosis: 0 OM-2 -% Stenosis: 0 RCA -% Stenosis: 0 PDA-RT -% Stenosis: 0 PLV-RT -% Stenosis: 0 LEFT VENTRICLE EF %: 45 The left ventricle has normal size with mild global hypokinesis VALVE-MITRAL Mitral insufficiency grade: 2 HEMODYNAMICS LVEDP 5 mmHg FLUOROSCOPY No coronary calcifications were seen IMPRESSION 1???normal coronary arteries 2???mild left ventricular systolic dysfunction, ejection fraction 45% 3???moderate mitral regurgitation 4???normal LVEDP at 5 mmHg RECOMMENDATIONS The patient is being considered for mitral valve repair Documented By: Bryce Cheung MD, [facility] 5 1125 Signed By: <Electronically signed by MD LYNN Cheung> 03/23/25 1129 Relevant Diagnostic Tests and/or Laboratory Data Laboratory Results Test Collection Date/Time Result Date/Time Result Interpretation Reference Range Result Comment Performing Site Anion Gap February 28, 2025 1:50pm February 28, 2025 1: 50pm 14.8 BUN/Creatinine RatioOct[facility] 2024 1:50pmOctm[facility] 2024 1:50pm35.3Blood Urea NitrogenOctmorgan county arh hospital 2024 1:50pmOctober 2024 1:50pm42.0 mg/dLAbove high normal7.0-18.0Calcium LevelOct2024 1:50pmOctober 2024 1:50pm9.7 mg/dL8.5-10.1Chloride LevelOct2024 1:50pmOctober 2024 1:88uv976 mmol/U73-153Emfrgi Dioxide LevelOct2024 1:50pmOctober 2024 1:50pm26.9 mmol/L21.0-32.0CreatinineOct2024 1:50pmOctober 2024 1:50pm1.19 mg/dLAbove high normal0.55-1.02Estimated GFR () February 28, 2025 1:50pmOctober 2024 1:60fy04Jezxx low normal>=60 mL/min/1.73m 2Estimated GFR (Non- AmericanOct2024 1:50pm February 28, 2025 1:93sk22Lzppd low normal>=60 mL/min/1.73m 2Glucose Level February 28, 2025 1:50pmOctober 2024 1:50pm96 mg/iW84-727Xukmnhrfg Level February 28, 2025 1:50pmOctober 2024 1:50pm4.7 mmol/L3.5-5.1Sodium Level February 28, 2025 1:50pmOctober 2024 1:27je595 mmol/S523-444Lksfnfllc White Blood CountSeptember 2024 2:42pmSeptember 2024 3:48pm7.9 10*3/uL3.8-11.6[facility] [id number] [address] [facility] 15980Spniyzeaf White Blood CountNovember 2024 10:40amNovember 2024 10:58am6.8 10*3/uL3.8-11.6FS[facility] [id number] [address] [facility] 17617Zyvxhznqzyh WBC CountNovember 2024 10:40amNovember 2024 10:58am6.8 10*3/uL3.8-11.6FS[facility] [id number] [address] [place] [address] 69174Jmj Blood CountSeptember 2024 2:42pmSeptember 2024 3:48pm3.97 10*6/uL3.60-5.00[facility] [id number] [address] [facility] 80040Imp Blood CountNovember 2024 10:40amNovember 2024 10:58am4.70 10*6/uL3.60-5.00[facility] [id number] [address] [place] [address] 68601FytcdxsxrjHybffozyj 2024 2:42pmSeptember 2024 3:48pm11.7 g/dLBelow low kyfkrc85.8-15.4FSum[facility] [id number] [address] [place] [address] 11956LmbctqikziVqykdkta 2024 10:40amNovember 2024 10:58am13.3 g/dL11.8-15.4FSum[facility] [id number] [address] [place] [address] 15919UowclmnjgeQktieaajh 2024 2:42pmSeptember 2024 3:48pm35.5 %34.0-46.4FSum[facility] [id number] [address] [place] [address] 19417XnaybpxeqeBtavsqen 2024 10:40amNovember 2024 10:58am40.0 %34.0-46.4FSum[facility] [id number] [address] [place] [address] 40789Dtia Corpuscular VolumeSeptember 2024 2:42pmSeptember 2024 3:48pm89.4 pA38-180NuzomkfhlMetrohealth [facility]ma [facility] [id number] [address] [facility] 67535Wnxe Corpuscular VolumeNovember 2024 10:40amNove2024 10:58am85.0 xT09-068DsifdwfscMetrohealth Parma [facility] [id number] [address] [facility] 97967Wtek Corpuscular HemoglobinSeptember 2024 2:42pmSeptember 2024 3:48pm29.4 pg24.7-34.3FSumma [facility] [id number] [address] [facility] 84651Lttm Corpuscular HemoglobinNovember 2024 10:40amNove2024 10:58am28.3 pg24.7-34.3FSumma [facility] [id number] [address] [place] [address] 86991Qzjs Corpuscular Hemoglobin ConcentSeptember 2024 2:42pm January 11, 2025 3:48pm32.9 g/dL32.0-35.0[facility] [id number] [address] [place] [address] 02178Utng Corpuscular Hemoglobin ConcentNovember 2024 10:40am March 21, 2025 10:58am33.3 g/dL32.0-35.0[facility] [id number] [address] [place] [address] 33173Wli Cell Distribution WidthSeptember 2024 2:42pmSept2024 3:48pm15.8 %Above high egxpjd88.9-15.3FSum[facility] [id number] [address] [place] [address] 41656Fmh Cell Distribution WidthNov2024 10:40amNove2024 10:58am13.8 %11.9-15.3FSum[facility] [id number] [address] [place] [address] 26101Rvvetoex CountSeptember 2024 2:42pmSept2024 3:36wo652 10*3/aD177-187JwfvaqvugMetrohealth Parma [facility] Center [facility] [id number] [address] [place] [address] 90291Jdcegtmx CountNovember 2024 10:40amNove2024 10:64lk240 10*3/jZ898-254TjkpmxsidMetrohealth [facility] [id number] [address] [facility] 80668Kyos Platelet VolumeSeptember 2024 2:42pmSeptember 2024 3:48pm8.6 fL6.3-10.7FSum[facility] [id number] [address] [facility] 30617Tfwg Platelet VolumeNovember 2024 10:40amNovember 2024 10:58am7.5 fL6.3-10.7FSum[facility] [id number] [address] [facility] 50213Klwqhpxnjpq (%) (Auto)March 21, 2025 10:40amNovember 2024 10:58am66.1 %.[facility] [id number] [address] [facility] 08240Bcdiqgecgmf (%) (Auto)March 21, 2025 10:40amNovember 2024 10:58am17.9 %.[facility] [id number] [address] [facility] 64016Xzcwhfvhu (%) (Auto)March 21, 2025 10:40amNovember 2024 10:58am11.5 %.[facility] [id number] [address] [facility] 34382Ovbxamcbiqb (%) (Auto)March 21, 2025 10:40amNovember 2024 10:58am3.5 %.[facility] [id number] [address] [facility] 67487Lzobgxiqf (%) (Auto)March 21, 2025 10:40amNovember 2024 10:58am1.0 %.[facility] [id number] [address] [facility] 29840Fhwhhyciz RBC Relative Count (auto)March 21, 2025 10:40am March 21, 2025 10:58am0.1 /100{WBC}0-0.5FSum[facility] [id number] [address] [facility] 91097Kyshvtdsuow # (Auto)March 21, 2025 10:40amNovember 2024 10:58am4.5 10*3/uL1.8-7.7FSum[facility] [id number] [address] [place] [address] 24196Sszmzbmvcbr # (Auto)March 21, 2025 10:40amNovember 2024 10:58am1.2 10*3/uL1.00-4.8[facility] [id number] [address] [place] [address] 61962Hweazecgl # (Auto)March 21, 2025 10:40amNovemb2024 10:58am0.8 10*3/uL0.0-0.8[facility] [id number] [address] [place] [address] 77047Orraoejyllm # (Auto)March 21, 2025 10:40amNove2024 10:58am0.2 10*3/uL0.0-0.45[facility] [id number] [address] [place] [address] 69441Xbckiadya # (Auto)March 21, 2025 10:40amNove2024 10:58am0.1 10*3/uL0.0-0.2FSum[facility] [id number] [address] [place] [address] 54220Ehktewdzdzx TimeNovember 2024 10:40amN2024 11:24am9.8 s9.0-12.9A hematocrit value greater than 55% may lead to inaccurate results in coagulation testing. Patientshaving hematocrit values >55% require a special collection tube for coagulation studies. Please contact the laboratory at [phone] for redraw instructions.[facility] [id number] [address] [facility] 34713Qjwvaruim Time [facility]ove20[facility] 10:40am March 21, 2025 11:24am0.9INR Therapeutic Range A) Pre- and Peroperative OAT started two weeks before surgery. NOT HIP SURGERY: 1.5 - 2.5 HIP SURGERY: 2 - 3B) Primary and secondary prevention of venous THROMBOSIS: 2 - 3C) Active venous thrombosis, pulmonary embolismand prevention of recurrent venous thrombosis: 2 - 3D) Prevention of arterial thromboembolismincluding patients with mechanical heart valves: 3 - 4.5FSumma [facility] [id number] [address] [facility] 76160Ryzkambvp Partial Thromboplast TimeNov2024 10:40am March 21, 2025 11:24am31.9 s25.1-36.5A hematocrit value greater than 55% may lead to inaccurate results in coagulation testing. Patientshaving hematocrit values >55% require a special collection tube for coagulation studies. Please c ontact the laboratory at [phone] for redraw instructions.[facility] [id number] [address] [facility] 15104Wrysiuq LevelSeptember 2024 2:42pmSeptember 2024 4:04pm86 mg/mQ71-557OWV recommended reference rangeRandom Glucose Reference Range is dependent on time and content of last meal. Glucose of more than 200 mg/dL in a nonstressed, ambulatory subject supports the diagnosisof Diabetes Mellitus.[facility] [id number] [address] [facility] 56571Jvlabid LevelNov2024 10:40amNove2024 12:21pm76 mg/vN05-027WOU recommended reference rangeRandom Glucose Reference Range is dependent on time and content of last meal. Glucose of more than 200 mg/dL in a nonstressed, ambulatory subject supports the diagnosisof Diabetes Mellitus.[facility] [id number] [address] [facility] 04606Fhrmv Urea NitrogenSeptember 2024 2:42pmSept2024 4:04pm27 mg/dLAbove high normal7-25[facility] [id number] [address] [facility] 23197Wiszz Urea NitrogenNov2024 10:40amNovember 2024 12:21pm34 mg/dLAbove high normal7-25[facility] [id number] [address] [facility] 23480QymsuavszhNljqjsmid 2024 2:42pmSept5 4:04pm1.22 mg/dLAbove high normal0.60-1.20[facility] [id number] [address] [facility] 62966DbftoarbiqEkvxoplc 2024 10:40amNove2024 12:21pm1.07 mg/dL0.60-1.20[facility] [id number] [address] [facility] 34162Kqrzbllja GFR (CKD-EPI)January 11, 2025 2:42pmSeptember 2024 4:04pm46.279 mL/MinMetrohealth Parma Medical Center Ctr [id number] [address] [facility] 31194Zigordnrj GFR (CKD-EPI)March 21, 2025 10:40amNove2024 12:21pm54.170 mL/MinMetrohealth Parma [facility] Center [facility] [id number] [address] [place] 6089170Sodium LevelSeptember 2024 2:42pmSeptember 2024 4:16tq343 mmol/L438-053BqjgfowqtMetrohealth Parma [facility] Center [facility] [id number] [address] [facility] 84385Jcdeow LevelNov2024 10:40amNove2024 12:03lp632 mmol/U635-921XbfcdrgshMetrohealth Parma [facility] [id number] [address] [facility] 24069Izzpykgcg LevelSeptember 2024 2:42pmSeptember 2024 4:04pm4.8 mmol/L3.5-5.1FSum[facility] [id number] [address] [facility] 99596Xycnfbhmk LevelNov2024 10:40amNovemb2024 12:21pm5.0 mmol/L3.5-5.1FSum[facility] [id number] [address] [place] 6089170Chloride LevelSeptember 2024 2:42pmSeptember 2024 4:67lq890 mmol/I23-645TejuaautaMetrohealth Parma Medical Center [facility]tr [id number] [address] [place] 6089170Chloride LevelNovember 2024 10:40amNovember 2024 12:18nr057 mmol/L77-240AxbbulbidMetrohealth Parma [facility] Center [facility] [id number] [address] [facility] 83939Twrskn Dioxide LevelSeptember 2024 2:42pmSeptember 2024 4:04pm28.9 mmol/L21.0-31.0[facility] [id number] [address] [facility] 30430Clznvv Dioxide LevelNovember 2024 10:40amNovemb2024 12:21pm28.7 mmol/L21.0-31.0[facility] [id number] [address] [facility] 67600Xbhxm GapSeptember 2024 2:42pmSeptember 2024 4:04pm 12.9 mEq/L6.0-15.0[facility] [id number] [address] [facility] 62503Rqpzi GapNov2024 10:40amNovemb2024 12:21pm 9.3 mEq/L6.0-15.0[facility] [id number] [address] [facility] 69801Rrkkwdl LevelSeptember 2024 2:42pmSeptember 2024 4:04pm10.4 mg/dLAbove high normal8.6-10.3FSumma Health [facility] [id number] [address] [facility] 29897Vqzkzoq LevelNovember 2024 10:40amNovemb2024 12:21pm9.4 mg/dL8.6-10.3FSum[facility] [id number] [address] [facility] 12623Kffwdfwc Creatinine Clearance (ChemSeptember 2024 2:42pm January 11, 2025 4:04pmN/[facility] [id number] [address] [facility] 32358Nygahcga Creatinine Clearance (ChemNovember 2024 10:40am March 21, 2025 12:21pmN/[facility] [id number] [address] [place] [address] 50490 Vital Signs Vital Reading Result Reference Range Collection Date/Time Height 62 [in_i] January 11, 2025 3:46sgZgsngs19.58 kgSeptember 2024 3:14pmBody Nzersgyzovx31.8 [degF]97.6-99.0September 2024 3:14pmHeart Rate77 /min 60-100September 2024 3:14pmRespiratory rate18 /yer14-25Ouwnlezct 2024 3:14pmOxygen saturation by Pulse zedfshik86 %95-100September 2024 3:14pmBP Lgncjbgm63 mm[Hg]100-140September 2024 3:14pmBP Vkcegamks56 mm[Hg]60-100September 2024 3:14pmBMI (Body Mass Index)27.2 kg/j3Cdkxtyicr2024 3:04blNpfdwm51 [in_i]January 15, 2025 10:82ddXlvpgy17.15 kg January 15, 2025 10:46amHeart Rate72 /beu08-669Xwtrgbcll 15th, 2025 10:46am Respiratory rate12 /csy38-82Jgheetlkf 15th, 2025 10:46amBP Dxhxymab418 mm[Hg] 100-140September 2024 10:46amBP Mtczniklv32 mm[Hg]60-100Sept2024 10:46amBMI (Body Mass Index)27.4 kg/v0Upvilpuub2024 10:40ygZwheac53 [in_i]March 23, 2025 7:08toCybiik33.90 kgNov2024 7:30amBody Iehldgzmdan17.1 [degF]97.6-99.0March 23, 2025 9:48amHeart Rate74 /ckq04-398 March 23, 2025 3:27pmRespiratory rate16 /mqd39-13Flhirkuy 21st, 2025 3:27pm Oxygen saturation by Pulse vxwptyqw29 %95-100Nov2024 3:27pmBP Ppxsbrnm930 mm[Hg]100-140Nov2024 3:27pmBP Cgcjlyssm84 mm[Hg]60-100 March 23, 2025 3:27pmInhaled oxygen flow rate3 L/minMarch 23, 2025 9:48am Advance Directives Advance Directive Response Recorded Date/ Time Advance Directives Yes September 01, 2024 8:54am Insurance Providers Guarantor Renuka Dey Claus Address [address] [place] [address]Ysguzad Info.Home Phone: Coverage Status Update:2025 Payer Group Member ID Coverage Type Subscriber Relationship to Subscriber Effective Date Expiration Date MMO [id number] A Brayden Id: [id number] [address] [place] [address] Home Phone: Email: [email or web address] [id number] A Brayden Id: [id number] [address] [place] [address] Home Phone: Email: [email or web address] [employer] PGBA [id number] A Brayden Id: [id number] [address] [place] [address] Home Phone: Email: [email or web address]- Part A Only Id: Plan [id number] A Brayden Id: [id number] [address] [place] [address] Home Phone: Email: [email or web address] Encounter Location(s) Arrival/Admit Date Discharge/Departure Date Discharge/Departure Disposition Provider(s) Non-patient / Non-visit -[facility] 2024 1:50pm [facility] 3:24pmSe2024 3:25pmDischarged to home care or self care (routine discharge)DANIELLE Luiseparted Physician/Provider Office Visit-[facility]2024 4:07pmSe2024 4:57pmDischarged to home care or self care (routine discharge)DANIELLE Luiseparted Physician/Provider Office Visit-WILLIAM Chanel [facility]2024 11:36amSept2024 12:28pmDischarged to home care or self care (routine discharge)Sarai Jama-patient / Hvc-bqwfz-[employer] [employer] February 28, 2025 2:50pmDerrek Kitchen MD FACCDeparted Clinical -Pre-Surgical TestingMarch 21, 2025 9:55amNovember 2024 9:56am Discharged to home care or self care (routine discharge)Derrek Kitchen MD FACCDeparted Surgical Day [facility]March [facility] 2025 7:05amNovemb2024 4:00pmDischarged to home care or self care (routine discharge)Derrek Kitchen MD [facility] Recent Diagnosis Onset Date Admit Date HFrEF (heart failure with re duced ejection fraction) Unknown January 11, 2025 4:07pm Acute kidney injury Unknown January 112024 4:07pm Anemia Unknown January 15, 2025 11:36am Chemotherapy-induced peripheral neuropathy Unkno wn January 15, 2025 11:36am Chronic kidney disease Unknown January 15, 2025 11:36am Chronic venous insufficiency of lower extremity Unknown January 15, 2025 11:36am HFrEF (heart failure with re duced ejection fraction) Unknown January 15, 2025 11:36am Hypertension Unknown January 15, 2025 11:36am Lumbar stenosis without neur ogenic claudication Unknown January 15, 2025 11:36am NICM (nonischemic cardiomyopathy) Unknown January 15, 2025 11:36am Opiate analgesic use agreement exists Unknown January 15, 2025 11:36am Unsteady gait when walking Unknown 2024 11:36am Assessments Diagnosis Onset Date Resolution Status Admit Date HFrEF (heart failure with reduced ejecti on fraction) acuteJanuary 11, 2025 4:07pmAcute kidney injuryresolvedJanuary 11, 2025 4:07pmAnemiaacuteJanuary 15, 2025 11:36amChemotherapy-induced peripheral neuropathyacuteJanuary 15, 2025 11:36amChronic kidney diseaseacuteJanuary 15, 2025 11:36amChronic venous insufficiency of lower extremityacuteJanuary 15, 2025 11:36amHFrEF (heart failure with reduced ejection fraction)acute January 15, 2025 11:36amHypertensionacuteJanuary 15, 2025 11:36amLumbar stenosis without neurogenic claudicationacuteJanuary 15, 2025 11:36amNICM (nonischemic cardiomyopathy)acuteJanuary 15, 2025 11:36amOpiate analgesic use agreement existsacuteJanuary 15, 2025 11:36amUnsteady gait when walking acuteJanuary 15, 2025 11:36am Plan of Treatment Author Mervin Chanel [facility] HealthAuthoredJanuary 15, 2025 8:20pmI have instructed this patient to consume a healthy, low-fat, low-salt diet. I have also encouraged them to continue exercise with weight loss to achieve/maintain a BMI < 30. I have instructed this patient on the correct procedure for obtaining home BP measurements:? - rest for 5 minutes w/o talking. - positioned w/ feet on floor and arms supported. - average best 2/3 readings w/ goal < 135/85. - update office w/ home readings in 2 weeks. Continue Metoprolol without interruption Restart Lisinopril 2.5mg qd I instructed this patient on the benefits [...] the office for any changes or concerns. Monitor weight closely Consume at least 48 oz fluids daily Continue Farxiga without interruption Restart Lisinopril Reviewed fall precautions. Use walker / cane for support. Continue ROM, strengthening exercises w/ PT/OT No obvious bleeding per patient: denies hematemesis, hemoptysis, epistaxis, bruising, melena, hematochezia or hematuria. Normal Fe, Fa, B12 in Dec I have instructed this patient to avoid salt and elevate their lower extremities. I have also recommended use of support stockings. I instructed them to inspect their legs and feet daily for blisters and ulcerations. Restarted daily Torsemide about 10 days ago Monitor edema and weight closely I have instructed this patient to avoid [...] referral to physical therapy or pain management. Continue Tylenol without interruption Avoid use of NSAIDs due to CKD Rare use of opiates due to unsteady gait Fall precautions reviewed. 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 This patient requires opiate use on a daily basis to control pain. This patient does not exhibit drug-seeking or aberrant behavior. This patient is able to continue with ADL, with an adequate quality of life, that they would not be able to achieve without the prescription pain medication. There has been no surgical treatment recommended for this condition. Use of non- opiate treatment should be continued, such as nonstrenuous and aquatic exercises. This patient has a pain management contract and they have been counseled on safe storage of the medication. They have been counseled on the risks of concomitant use with alcohol or sedating meds. PDMP is being followed and this patient's OARRS report is being monitored every 90 days. Instructed on a healthy, low salt diet and low intensity exercise. Instructed on daily weights and notify office w/ increased weight/SOB I have instructed this patient on a low salt diet, exercise and daily weights. I have instructed them to notify the office for any on any unexpected weight gain > 3lbs and /or increased dyspneaon exertion, difficulty breathing during sleep, worsening lower extremity swelling, chest pain or lightheadedness. I have reviewed the GDMT with beta blockers, CRESENCIO/ARB or ARNI, MRA and a SGLT-2i. Echo: LVEF 25-30%, normal RV size/function - 10/2024 Continue Metoprolol, Farxiga without interruption Restart Lisinopril 2.5mg daily Author Danyelle Mathews [facility]AuthoredSeptember 2024 4:15pmPatient presented with LATANYA with creatinine 3.19 mg/dL in the setting of low blood pressure and possible sepsis with bandemia. CT scan of the abdomen showed evidence of pancolitis. Normal kidney sizes with no kidney stones or obstructive uropathy. Urine output has increased with improvement of serum creatinine with better blood pressure on Levophed and IV hydration. Patient is going to have repeat CBC and BMP today. If renal function is stable, patient will follow-up with cardiology and her PCP as renal function is back to normal with creatinine 0.73 mg/dL on November 30. If creatinine is elevated, the patient will be called for follow-up blood work in 2 to 3 months to ensure stability of serum creatinine. All medications were reviewed. She is on furosemide 20 mg daily for history of CHF. She was advised to increase furosemide to 20 mg twice a day if she has more edema or CHF. Patient had 2D echo during hospital stay that showed EF 25 to 30%. She stated that possible related to the chemotherapy that she had for breast cancer. She follow-up with cardiology. Continue dapagliflozin 10 mg daily. Continue furosemide 20 mg daily to be increased if needed. Follow-up with cardiology. 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 She was informed that she is at high risk for recurrent LATANYA based on low ejection fraction and low blood pressure. Future Tests Future scheduled test information is unavailable Pending Tests Test Name Ordered Date Scheduled Date Comprehensive Metabolic Panel January 11 4:15pm 3 Months Future Visits Future appointment information is unavailable Future Procedures Procedure Name Ordered Date Scheduled Date Cardiology PRN Orders March 23, 2025 11:30a m March 23, 2025 11:30am Discharge Order March 23, 2025 11:34am Nove mber 2024 11:34am Phosphorus January 11, 2025 4:15pm 3 Mo nths Parathyroid Hormone Intact January 11, 2025 4:15pm 3 Months Creatinine, Urine (Random) January 11, 2025 4:15pm 3 Months Total Protein, Urine January 11, 2025 4:15pm 3 Months Future Medications Future medication information is unavailable Patient Instructions Instruction Admit Date Know your Meds March 23, 2025 7:05am Goals Acute Goals Author Authored Date Experience reduced anxiety * Identifies current stressors * Develops effective coping behaviors * [facility] 20[facility] 4:25pmRemain free of complications [facility] 2024 4:25pmUnderstand preop/postop care/sensations * Verbalizes understanding of surgical procedure * Verbalizes understanding of sensations following surgery * Verbalizes understanding of post-op treatment planUniversity [facility] 2024 4:25pmReport pain at tolerable level * Uses pain scale appropriately * Identify options for pain control - Analgesics - Narcotics - Non-medication measuresUniversity [facility]als [facility] 2024 4:25pmAbsence of imbalanced fluid volume s/s [facility] 2024 4:25pmAbsence of physical injury [facility] 2024 4:25pmAbsence of surgical site infection [facility] 2024 4:25pm Hospital Discharge Instructions Additional Instructions DISCHARGE INSTRUCTIONS FOR CARDIAC RECRUITING ASSISTANT PROCEDURE: Heart Cath The following instructions have been prepared to help you care for yourself, or be cared for upon your return home. 1. You were given conscious sedation. Do not operate a vehicle, power tools, make important decisions, or drink alcohol for 24 hours. You might be drowsy or light headed. Return to the Emergency Room if you have trouble breathing, walking or nausea and vomiting. 2. FOR BLEEDING: Apply continuous pressure to the site and call 911. 3. Operative Site Care: Keep the dressing clean and dry. You may change the dressing only if soiled or wet. You may remove the dressing the following morning. You may wash over the puncture site in the shower. If the puncture site is at the wrist no soaking for 3 days. Some bruising or slight swelling may be present. -Signs of infection are redness, warmth, swelling, getting more sore, colored drainage, fever or chills. -Should the arm or leg become cold, numb, blue or white, call the rubber mill operator immediately. 4. ACTIVITY: You are advised to go directly home from the hospital. Restrict your activities for the rest of the day. Resume light or normal activities tomorrow. Do not engage in any activity that will stress the puncture site. Avoid heavy lifting (over 15 lbs.), straining or bending at the catheter site for 48 hours after discharge. If the puncture site is at the wrist do not manipulate wrist for 24 hours and no lifting more than 3 lbs for 3 days. 5. DIET:You may eat your regular diet when you desire. 6. MEDICATIONS: Resume your daily prescription schedule. Prescriptions may be sent with you if needed. Use as directed. When taking pain medications, you may experience dizziness or drowsiness. Do not drink alcohol or drive when taking pain medications. 7. If you should experience episodes of angina e.g. chest discomfort, heaviness, tightness, pressure, burning, with or without radiation to the neck, jaws, arms, or back- Use 1 Nitrostat under your tongue every 5-10 minutes, and up to 3 tablets. If no relief- Call 911 and go to the nearest Emergency Room. -Notify the office for recurrent angina, chest pain or other concerns. You may NOT drive yourself home! Follow the medication instructions provided on your discharge. If the dosages and instructions on this sheet differ from the dosage and instructions on the bottle, follow the instructions on the bottle. [facility] is not responsible for incorrect prescription information provided by the patient during their visit. Do not stop your medications without consulting your health care provider. Please take the list with you to your next doctor's appointment. Discharge Summary Note Author Bryce Cheung [facility] HealthNote Date/TimeNovember 2024 4:00pm [place] [address] Discharge Summary Signed Patient: Renuka Owen MR#: [id number] : 1950 Acct:[id number] Age/Sex: 74 / F Adm Date: 5 Loc: [place] Room: Attending Dr: Bryce Cheung MD Copies to: DO Bryce Jama MD, FACC~ Providers Date of Discharge: 03/23/25 Discharging Provider: Bryce Cheung Primary Care Provider: Mervin Chanel Discharge Diagnosis Final Diagnosis Final Discharge Diagnosis: Coronary angiography LV systolic dysfunction Moderate mitral regurgitation Summary Hospital Course Hospital course: Outpatient procedure Time Spent with Patient Time spent providing/coordinating discharge services (# min): 30 Surgeries and Procedures Operation Date: 03/23/25 09:05 Actual Procedures p OR DASHAWN W/IV Sedation(Not Applicable) - Bryce Cheung MD Operation Date: 03/23/25 11:15 Actual Procedures p CL [facility] & COR Angio - Bryce Cheung MD Discharge Plan Discharge Plan Patient Disposition: Home Activity: Ambulate as Tolerated Diet: Regular Instructions: Know your Meds Prescriptions: Continued tolterodine 1 mg tablet See Rx Instructions .ROUTE .COMPLEX Qty: 60 11RF Dose Instruction: TAKE 1 TABLET BY MOUTH TWICE A DAY Rx Instructions: TAKE 1 TABLET BY MOUTH TWICE A DAY fluticasone propionate 50 mcg/actuation spray,suspension See Rx Instructions .ROUTE .COMPLEX Qty: 48 3RF Dose Instruction: USE 2 SPRAYS IN EACH NOSTRIL ONCE A DAY NEEDED FOR NASAL CONGESTION Rx Instructions: USE 2 SPRAYS IN EACH NOSTRIL ONCE A DAY NEEDED FOR NASAL CONGESTION trazodone 50 mg tablet See Rx Instructions .ROUTE .COMPLEX Qty: 90 1RF Dose Instruction: TAKE 1/2 - 1 TABLET BY MOUTH EVERYDAY AT BEDTIME Rx Instructions: TAKE 1/2 - 1 TABLET BY MOUTH EVERYDAY AT BEDTIME baclofen 20 mg tablet 20 mg PO DAILY PRN (Reason: muscle pain) 90 Days Qty: 90 1RF melatonin 10 mg Tablet 10 mg PO HS PRN (Reason: Sleep) montelukast 10 mg tablet 10 mg PO HS acetaminophen 500 mg Tablet 500 mg PO Q4H PRN (Reason: Pain) Qty: 0 0RF docusate sodium 100 mg Capsule 100 mg PO BID PRN (Reason: Constipation) Qty: 0 0RF cyclosporine 0.05 % Dropperette 1 drp Eye-Both Q12HR Qty: 0 0RF pantoprazole 40 mg tablet,delayed release (DR/EC) 40 mg PO QAM metoprolol succinate 25 mg tablet extended release 24 hr 25 mg PO QAM Patient Comments: Takes qd, provided b/p is not too low. Rx Instructions: TAKE 1 TABLET BY MOUTH EVERY DAY lisinopril 2.5 mg tablet 2.5 mg PO QAM dapagliflozin propanediol 10 mg tablet 10 mg PO QAM furosemide 20 mg tablet 20 mg PO BID PRN (Reason: edema) 30 Days Qty: 60 5RF gabapentin 100 mg capsule 100 mg PO DAILY Qty: 30 0RF thiamine HCl (vitamin B1) 100 mg tablet 100 mg PO QAM Discontinued aspirin 81 mg Tablet,Delayed Release (Dr/Ec) 81 mg PO QAM Follow Up: [facility] [Outside] - 09/14/25 10:20 am Prescription Drug Monitoring Program Review: Not Reviewed Exam Physical Exam Vital Signs: Temp Pulse Resp BP Pulse Ox O2 Del Method O2 Flow Rate 97.1 F L 68 16 106/60 99 Nasal Cannula 3 03/23/25 09:48 03/23/25 10:33 03/23/25 10:33 03/23/25 10:33 03/23/25 10:33 03/23/25 09:48 03/23/25 09:48 Documented By: Bryce Cheung MD, [facility] [id number] Signed By: <Electronically signed by MD LYNN Cheung> 03/23/25 1139
--- OUTSIDE RECORDS SUMMARY | 2025-03-26 14:16 | XMS_ITS | Encounter Summary ---
Author Organization [facility] Address [address] [facility] [place] [address] Care Team Providers Care Manager Casino Name Role Phone Mervin Chanel Primary Care Provider [phone] Encounter Details DateTypeDepartmentCare Team (Latest Contact Info)Ylwgkdubliz78/17/2025Travel Social History Tobacco UseTypesPacks/DayYears UsedDateSmoking Tobacco: NeverSmokeless Tobacco: NeverAlcohol UseStandard Drinks/WeekCommentsYes1 (1 standard drink = 0.6 oz pure alcohol)caffeine intake: 2-3 cups per day of diet cokeCommentsUnknownSex and Gender InformationValueDate RecordedSex Assigned at BirthNot on fileLegal VfzMumjme41/15/2023 7:03 PM EDTGender IdentityNot on fileSexual OrientationNot on filedocumented as of this encounter Plan of Treatment DateTypeDepartmentCare Team (Latest Contact Info)Fuxadatgvbx44/04/2026 1:00 PM ESTProcedure Visit [facility] [address] [place] [phone] Wilfrid Olson, ARIAS [address] [place], [place] [id number] 09/03/2025 2:30 PM EDTOffice Visit [facility] [address] [place] [address] Nba Malhotra DO [address] [place] [address] documented as of this encounter Visit Diagnoses Not on filedocumented in this encounter Care Teams Team MemberRelationshipSpecialtyStart DateEnd Date Mervin Chanel DO [address] [place] [phone] PCP - GeneralInternal Medicine09/30/22documented as of this encounter
--- OUTSIDE RECORDS SUMMARY | 2025-03-26 14:16 | XMS_ITS | Clinical Summary ---
Author Organization [facility] Address [address] [facility] [place] [address] Care Team Providers Care Pets Salesperson Name Role Phone Unavailable Primary Care Provider Unavailabl e Source Comments The following information is NOT included in Care Everywhere downloads:Psychiatric notes, ECG results, Cardiac Rehab notes, Pulmonary Function notes, data from [employer] (includes but not limited toPregnancy data,audiograms, eye exams, pre-surgical evaluation notes, well-child exam data).[facility] Social History Tobacco UseTypesPacks/DayYears UsedDateSmoking Tobacco: Never Assessed CommentsUnknownSex and Gender InformationValueDate RecordedSex Assigned at Not on fileLegal LwyGnacmk47/21/2023 12:36 PM ESTGender IdentityNot on file Sexual OrientationNot on file Last Filed Vital Signs Vital SignReadingTime TakenCommentsBlood Yrrbjjhk232/6511 6:00 AM EDT Uwyfy2083 6:00 AM EDTTemperature--Respiratory Rate--Oxygen Hrczraxzwb93% 03/06/2023 6:00 AM EDTInhaled Oxygen Concentration--Weight--Height--Body Mass Index-- Plan of Treatment Health MaintenanceDue DateLast XpmnUwzydmnkDtjngryulek98/06/1951Hepatitis C Efdqwnxm64/06/1968Tdap Loxrrfe3812/07/1967Hepatitis A (HAV) Vaccine (optional start 19+ years)12/06/19687913Djaikxtyhue78/06/1990CRC Xabmlgycl18/06/1995 Xvhpkjvdiro10/06/1995Cologuard (Stool DNA)1994FIT1994Pneumococcal Vaccine(s) (50+ yrs) (1 of 1 - PCV)12/07/1999Shingles (RZV) Vaccine (1 of 2) 12/07/1999Hepatitis B (HBV) Vaccine (optional start 60+ years)08/06/2010Bone Jtxukhrosdgs00/06/2015nnual Wellness Visit (G0438)12/02/2015RSV vaccine (adult) (1 - 1-dose 75+ series)2024OVID-19 Vaccine (2024- season)2025 Influenza Vaccine (#1)2025Pap SmearDiscontinued Insurance
--- OUTSIDE RECORDS SUMMARY | 2025-03-26 14:16 | XMS_ITS | Encounter Summary ---
Author Organization [facility] Address [address] [facility] [place] [address] Care Team Providers Care Apartment Leasing Consultant Name Role Phone Mervin Chanel Primary Care Provider [phone] Encounter Details DateTypeDepartmentCare Team (Latest Contact Info)Omqvpmdtcyk42/17/2025amboo flowsheet [facility] [address] [place] [address] Wilfrid Olson DPM [address] [place], [place] [phone] Social History Tobacco UseTypesPacks/DayYears UsedDateSmoking Tobacco: NeverSmokeless Tobacco: NeverAlcohol UseStandard Drinks/WeekCommentsYes1 (1 standard drink = 0.6 oz pure alcohol)caffeine intake: 2-3 cups per day of diet cokeCommentsUnknownSex and Gender InformationValueDate RecordedSex Assigned at BirthNot on fileLegal HzdXuaxke99/15/2023 7:03 PM EDTGender IdentityNot on fileSexual OrientationNot on filedocumented as of this encounter Plan of Treatment DateTypeDepartmentCare Team (Latest Contact Info)Dgxpvpcdiez57/04/2026 1:00 PM ESTProcedure Visit [facility] [address] [place] [address] Wilfrid Olson DPM [address] [place], [place] [phone] 09/03/2025 2:30 PM EDTOffice Visit [facility] [address] [place] [address] Nba Malhotra DO [address] [place] [address] documented as of this encounter Visit Diagnoses Not on filedocumented in this encounter Care Teams Team MemberRelationshipSpecialtyStart DateEnd Date Mervin Chanel, [address] [place] [phone] PCP - GeneralInternal Medicine09/30/22documented as of this encounter
--- OUTSIDE RECORDS SUMMARY | 2025-03-26 14:16 | XMS_ITS | Clinical Summary ---
Author Organization [facility] Address [address] [place] [address] Phone Care Team Providers Care Paediatrician Name Role Phone Mervin Chanel DO Primary Care Provider [phone] Allergies Active AllergyReactionsCriticalityNoted DateCommentsAtorvastatinHives,RashLow 02/28/20239949ZssgtcdrjdsAydaiYzatrh44/29/5534Kzsnesr-Tah-Zmi Reductase Inhibitors HguisVkpawn10/29/2023 Medications MedicationSigDispense QuantityRefillsLast FilledStart DateEnd DateStatus baclofen [...] daily.Active Active Problems ProblemNoted DateDiagnosed DateNever smoked frfgstq7407/15/2023Left ventricular systolic rhmqhidbykz61/16/6158Mlhjr56/31/1220Jchgce67/29/2023Essential agqafzaqdikt37/29/2023LBBB (left bundle branch block)02/28/2023Mitral xfeifgdpnhxbi86/29/2023hest pain02/28/2023MI 28.0-28.9,adult02/28/2023 Encounters DateTypeDepartmentCare UhodRqkwlnupiyz86/21/2025Scanned Document [facility] [address] [place] [address] Scanning, Generic Provider 03/23/2025Orders Only [facility] [address] [place] [address] Harjeet Cheung MD 03/21/2025Orders Only [facility] [address] [place] [address] Harjeet Cheung MD 03/13/2025Orders Only [facility] [address] [facility] [address] [place] [address] Daya Tai RN 03/13/2025Telephone [facility] [address] [facility] [address] [place] [address] Harjeet Cheung MD 03/12/2025Telephone [facility] [address] [facility] [address] [place] [address] Sintia Bermeo RN 03/07/2025 11:30 AM ESTOffice Visit [facility] [address] [place] [address] Lizabeth Bee MD Severe mitral regurgitation (Primary Dx) Discharge Disposition: Home03/07/2025 11:00 AM ESTOffice Visit [facility] [address] [place] [address] David Foreman MD Mitral valve insufficiency, unspecified etiology (Primary Dx) Discharge Disposition: Home03/07/20259134Ojnvcn95/29/2025Scanned Document [facility] [address] [place] [address] Scanning, Generic Provider 02/28/2025Telephone [facility] [address] [place] [address] Liliam Escalante, JAYA reminder lab work needed prior appt on 03-07-2510Orders Only [facility] [address] [place] [address] Liliam Escalante, JAYA Nonrheumatic mitral valve regurgitation (Primary Dx)02/23/2025Telephone [facility] Cris [address] [place] [address] Liliam Escalante, JAYA return call02/22/2025Telephone [facility] Center [address] [place] [address] Liliam Escalante, JAYA Structural Heart jurfjngr67/21/2025Results Follow-Up [facility] [address] [place] [address] Rissa Luna LPN Transthoracic Echo Ihpqpwf0702/19/2025 1:16 PM EDT - 02/19/2025 11:59 PM EDT Hospital Encounter [facility] [address] [place] [address] Mitral valve insufficiency, unspecified etiology; Left ventricular systolic dysfunction Discharge Disposition: Home02/19/20250285Vnjxyb96/30/2025 9:30 AM EDTOffice Visit [facility] [address] [place] [address] Harjeet Cheung MD Mitral valve insufficiency, unspecified etiology (Primary Dx); Left ventricular systolic dysfunction; Essential hypertension; LBBB (left bundle branch block); BMI 28.0-28.9,adult; Never smoked tobacco; Stage 3a chronic kidney disease (Multi) Discharge Disposition: Home01/30/20256484Vmzbdh73/11/2025Scanned Document [facility] [address] [place] [place] [address] Scanning, Generic Provider from Last 3 Months Immunizations ImmunizationAdministration DatesNext DueFlu vaccine (IIV4), preservative free *Check age/dose*02/17/2019Flu vaccine, quadrivalent, high-dose, preservative free, age 65y+ (FLUZONE)01/28/2021Flu vaccine, trivalent, preservative free, HIGH-DOSE, age 65y+ (Fluzone)01/29/2020,02/17/2018,02/02/2017,05/03/2010, 05/03/2009Influenza, Seasonal, Quadrivalent, Uhxmwkaxhr81/22/2023,01/14/2022 Influenza, Bixtmgsvwyk72/01/2017,12/02/2015,01/31/2015,01/31/2014,05/03/2006 Influenza, injectable, uijvvnzxzfev79/01/2016Moderna SARS-CoV-2 Vaccination 3Pfizer COVID-19 vaccine, 12 years and older, (30mcg/0.3mL) (Comirnaty) 3Pfizer COVID-19 vaccine, bivalent, age 12 years and older (30 mcg/0.3 mL)2Pfizer Vargas Cap SCBB-VxG-702/28/2022Pneumococcal conjugate vaccine, 13-valent (PREVNAR 13)05/11/2022,12/30/2016Pneumococcal polysaccharide vaccine, 23-valent, age 2 years and older (PNEUMOVAX 23)07/20/2020,02/08/2017,05/03/2015, 05/03/2013,01/31/2013Zoster vaccine, recombinant, adult (SHINGRIX)05/27/2020, 02/28/2020 Family History Medical HistoryRelationNameCommentsNo Known ProblemsFatherNo Known Problems MotherRelationNameStatusCommentsFatherMother Social History Tobacco UseTypesPacks/DayYears UsedDateSmoking Tobacco: NeverPassive Smoke Exposure: NeverSmokeless Tobacco: Never Tobacco Cessation:Counseling Given: Not Answered Alcohol UseStandard Drinks/WeekCommentsYes0 (1 standard drink = 0.6 oz pure alcohol)rarelyCommentsNoSex and Gender InformationValueDate RecordedSex Assigned at MaveoVybkzy28/31/2023 2:42 PM EDTLegal LfqCiiulh80/26/2022 2:47 PM ESTGender ZjftncgtMeemsh46/31/2023 2:42 PM EDTSexual OrientationNot on file Last Filed Vital Signs Vital SignReadingTime TakenCommentsBlood Gbiecutz949/8311 11:07 AM EST Gnxru196803/07/2025 11:07 AM ESTTemperature--Respiratory Rate--Oxygen Saturation 99%03/07/2025 11:07 AM ESTInhaled Oxygen Concentration--Ikdguh89.7 kg (147 lb 1.6 oz)03/07/2025 11:07 AM NIAIzsbbw913.9 cm (5' 1 )03/07/2025 11:07 AM ESTBody Mass Index27.7903/07/2025 11:07 AM EST Plan of Treatment DateTypeDepartmentCare Team (Latest Contact Info)Quqmfgbvrte81/15/2026 10:20 AM EDTOffice Visit [facility] [address] [place] [address] Harjeet Cheung MD [address] [facility] [address] [place] [address] Health MaintenanceDue DateLast DoneCommentsCT Naxftyahaijm96/06/1950Colonoscopy 1950Colorectal Cancer Yqptgcxpd53/06/1950FIT-DNA (Cologuard)1950FIT 1950Lipid Panel1950 2763Vprarfcdmursz19/06/1950MMR Vaccines (1 of 1 - Standard series)1Diabetes Fxqlnawpa95/06/1968Hepatitis C Screening 12/07/1967CKD: Urine Protein Sfpaldrkh69/06/1969Creatinine Level07/22/2008 07/23/2007Potassium LevelDTaP/Tdap/Td Vaccines (1 - Tdap) Medicare Annual Wellness Visit (AWV)/10/2022, 01/14/2022, 11/20/2020, Additional history existsRSV High Risk: (Elderly (60+) or Population) (1 - 1-dose 75+ series)5COVID-19 Vaccine ( - 2024- season)5001/22/2023, 05/10/2022, 02/25/2022, Additional history swwivaPnbzpldqdbpbsf77/21/69030205/23/2024, 02/19/2025, 11/13/2024, Additional history existsBone Density Scan, 01/28/2023, 12/09/2020, Additional history existsZoster AcevyxhqAbcirvxem95/25/2021, 02/28/2020, 01/31/2014Pneumococcal PqmxkznFpqsjdexx36/09/2023, 07/20/2020, 02/08/2017, Additional history existsInfluenza KimevimWtjgpwikp24/15/2025, 02/25/2024, 01/22/2023, Additional history existsHIB VaccinesAged OutNo [...] to complete this topic Procedures Procedure NamePriorityDate/TimeAssociated DiagnosisCommentsTRANSESOPHAGEAL ECHO 03/23/2025 8:57 AM EST CARDIAC CATHETERIZATION PROCEDURE - ONBASE SCAN03/23/2025 PITRMFUXLOORFM34/21/2025 NON-[facility] HIE BASIC METABOLIC NFDFPFcbmzia33/19/2025 10:40 AM EST NON-[facility] HIE COAGULATION UREHHUDUssbrbn42/19/2025 10:40 AM EST NON-[facility] HIE COMPLETE BLOOD COUNT AUTO UKDSAqfmekn76/19/2025 10:40 AM EST ELECTROCARDIOGRAM 12 LEAD03/21/2025 10:20 AM EST OUTSIDE LAB SCAN02/28/2025 TRANSTHORACIC ECHO (TTE) ZHBXFOJWueqdks71/20/2025 2:19 PM EDT Mitral valve insufficiency, unspecified etiology Left ventricular systolic dysfunction from Last 3 Months Results * Transesophageal Echo (03/23/2025 8:57 AM EST)Specimen (Source)Anatomical Location / LateralityCollection Method / VolumeCollection TimeReceived Time 03/23/2025 8:57 AM EST Narrative [facility] - 03/23/2025 12:02 PM EST [facility] ?[facility] Main [place] ?[address] ? [place] [address] ? Echocardiogram ? Signed ? Patient: Brayden,Renuka A ?MR#: [id number] ?? 982 ? : 1950 ?Acct:[id number] ? Age/Sex: 74 / F ?ADM Date: 11/21/25 ? Loc: [place] ?Room: ?Type: REG SDC ?? Attending Dr: Harjeet Cehung MD ? Ordering Provider: Harjeet Cheung MD, [facility] ?? Date of Service: 03/23/25/ ?? ECH/ECH echo transesophageal DASHAWN: PRE-OP, MITRAL REGURGITATION ? Copies to: Harjeet Cheung MD, [facility] ? Reason For Study: PRE-OP, MITRAL REGURGITATION ?? History: LBBB, Breast Cancer ? Interpretation Summary ?? DASHAWN was done in the OR with anesthesia staff providing sedation ?? The left ventricular size and thickness are normal. ?? Ejection Fraction = 45-50%. ?? Mild global hypokinesis ?? A variety of Doppler measurements indicate impaired left ventricular ?? relaxation, which is associated with grade I/IV or mild diastolic dysfunction. ?? The left atrium appears mildly dilated. ?? Atrial septum appears to be intact and there is no evidence of flow across the ?? atrial septum either by colorflow Doppler or by agitated saline. ?? There is mild to moderate mitral regurgitation. ?? There is mild tricuspid regurgitation. ?? Right ventricular systolic pressure is normal. ? Procdure: ?? A two-dimensional transesophageal echocardiogram with color flow ?? and Doppler was performed. Informed consent for Transesophageal Echocardiogram ?? was obtained prior to the procedure. DASHAWN was done in the OR with anesthesia ?? staff providing sedation. The transesophageal probe was passed without ?? difficulty. The usual views were obtained; basal, mid-esophageal, transgastric ?? and aortic views. The patient's vital signs, including blood pressure, heart ?? rate, pulse oximetry and cardiac rhythm were monitored throughout the ?? procedure and remained stable. Contrast injection with agitated saline was ?? performed. The patient tolerated the procedure well without evidence of ?? orophangeal or esophageal trauma. ?? Left Ventricle: ?? The left ventricular size and thickness are normal. Mild ?? global hypokinesis. Ejection Fraction = 45-50%. A variety of Doppler ?? measurements indicate impaired left ventricular relaxation, which is ?? associated with grade I/IV or mild diastolic dysfunction. ?? Left Atrium: ?? The left atrium appears mildly dilated. The atrial septum ?? appears normal. Atrial septum appears to be intact and there is no evidence of ?? flow across the atrial septum either by colorflow Doppler or by agitated ?? saline. ?? Right Atrium: ?? The right atrium appears normal in size. ?? Right Ventricle: ?? The right ventricular size, thickness and function are ?? normal. ?? Aortic Valve: ?? The aortic valve is trileaflet. ?? Mitral Valve: ?? The mitral valve leaflets appear normal. There is no evidence ?? of stenosis, fluttering, or prolapse. There is mild to moderate mitral ?? regurgitation. ?? Tricuspid Valve: ?? The tricuspid valve is normal in structure. There is mild ?? tricuspid regurgitation. Right ventricular systolic pressure is normal. ?? Pulmonic Valve: ?? The pulmonic valve is not well seen, but is grossly normal. ?? Arteries: ?? The aortic root is normal size. ?? Effusions: ?? No pericardial effusion seen. There is no pleural effusion. ? Transcribed By: ?SCV ?? Performed At: ?03/23/25 0857 ?? Signed By: ?Harjeet Cheung MD, [facility] ?03/23/25 1201 Authorizing ProviderResult TypeResult StatusHajessica Cheung [facility] ECHO PROCEDURESFinal ResultPerforming OrganizationAddressCity/State/ZIP CodePhone Number [facility] [address] [place] [address], * Cardiac Catheterization - Onbase Scan (03/23/2025) Narrative 03/23/2025 Ordered by an unspecified provider. Authorizing ProviderResult TypeResult StatusGeneric Provider ScanningCV CARDIAC CATH PROCEDURESFinal Result * Echocardiogram (03/23/2025) Narrative 03/23/2025 Ordered by an unspecified provider. Authorizing ProviderResult TypeResult StatusGeneric Provider ScanningCV ECHO PROCEDURESFinal Result * NON-[facility] HIE Complete Blood Count Auto Diff (03/21/2025 10:40 AM EST)Component ValueRef RangeTest MethodAnalysis TimePerformed AtPathologist SignatureNON- HIE White Blood Count6.83.8 - 11.6 [CFU]/mLHolzer HospitalNON- HIE Uncorrected WBC6.83.8 - 11.6 10*3/[facility] Red Blood Count4.703.60 - 5.00 10*6/[facility] NON-[facility] HIE Sbtfobxkvs39.311.8 - 15.4 g/dLHolzer HospitalNON- HIE Zwqfxdzwcd88.034.0 - 46.4 %[facility]NON- HIE Mean Corpuscular Ghektf46.080 - 100 [facility] Mean Corpuscular Ugwytcjksa51.324.7 - 34.3 pgFToledo HospitalNON-UH HIE Mean Corpuscular HGB Conc33.332.0 - 35.0 g/dLHolzer HospitalNON- HIE Red Cell Distribution Width13.811.9 - 15.3 %[facility] H[facility] Platelet Tkggq623203 - 450 10*3/[facility] Mean Platelet Volume7.56.3 - 10.7 [facility] Neutrophils % (Auto)66.1. %[facility]NON- HIE Lymphocytes % (Auto)17.9. %[facility]NON[facility] HIE Monocytes % (Auto)11.5. %[facility]NON[facility] HIE Eosinophils % (Auto)3.5. %[facility] Basophils % (Auto)1.0. %[facility] HospitalNON- HIE NRBC%0.10 - 0.5 /100{WBC}[facility] HIE Neutrophils # (Auto)4.51.8 - 7.7 10*3/[facility] HIE Lymphocytes # (Auto)1.2 1.00 - 4.8 10*3/[facility] HIE Monocytes # (Auto) 0.80.0 - 0.8 10*3/[facility] HIE Eosinophils # (Auto)0.20.0 - 0.45 10*3/[facility] HIE Basophils # (Auto)0.10.0 - 0.2 10*3/[facility] CtrComment: PERFORMED BY: [address] [place] [address] PATHOLOGIST TRAIN CALLER CARLOS VÁZQUEZ M.D. Specimen (Source)Anatomical Location / LateralityCollection Method / Volume Collection TimeReceived TimeOU MEDICAL CENTER [facility]MOND Whole blood oxtsonan47/19/2025 10:40 AM EST Narrative Authorizing ProviderResult TypeResult StatusHarjeet Cheung MDLAB BLOOD ORDERABLESFinal ResultPerforming OrganizationAddressCity/State/ZIP CodePhone Number [place] [phone], [facility] [address] [place] [phone] * (ABNORMAL) [facility] Basic Metabolic Panel (03/21/2025 10:40 AM EST)Component ValueRef RangeTest MethodAnalysis TimePerformed AtPathologist SignatureNON-[facility] Yrembbz4975 - 100 mg/dLUniversity Hospitals Parma [facility] CtrComment: ?? Random Glucose Reference Range is dependent on time and ?? content of last meal. Glucose of more than 200 mg/dL in a ?? nonstressed, ambulatory subject supports the diagnosis of ?? Diabetes Mellitus. ?? ADA recommended reference range NON- HIE Blood Urea Kymsjgjb18(H)7 - 25 mg/dLUniversity Hospitals Par[facility] Center Ctr [facility] Creatinine1.070.60 - 1.20 mg/dLHolzer HospitalNON- HIE ESTIMATED GFR54.170[facility] HIE Auwggj298227 - 145 mmol/[facility] Potassium5.03.5 - 5.1 mmol/L [facility] Noxgippr45573 - 107 mmol/[facility] Carbon Suullxb24.721.0 - 31.0 mmol/[facility] Anion Gap9.36.0 - 15.0[facility] Calcium9.48.6 - 10.3 mg/dLUniversity Hospitals Parma Medical Center CtrComment: PERFORMED BY: [facility] [address] [facility] [place] [id number] PATHOLOGIST TRAIN CALLER CARLOS VÁZQUEZ M.D. Specimen (Source)Anatomical Location / LateralityCollection Method / Volume Collection TimeReceived TimeOU MEDICAL CENTER – [facility]MOND Plasma specimen or serum specimen or whole blood drysyqcb46/19/2025 10:40 AM EST Narrative Authorizing ProviderResult TypeResult StatusHarjeet ANGELO BLOOD ORDERABLESFinal ResultPerforming OrganizationAddressCity/State/ZIP CodePhone Number [facility] [address] [place] [phone], [facility] [address] [phone] * NON-[facility] HIE Coagulation Profile (03/21/2025 10:40 AM EST)ComponentValueRef RangeTest MethodAnalysis TimePerformed AtPathologist SignatureNON-[facility] Prothrombin Time9.89.0 - 12.9 [facility] CtrComment: ?? A hematocrit value greater than 55% may lead to inaccurate ?? results in coagulation testing. Patients having hematocrit values >55% require a special collection tube for ?? coagulation studies. ?? Please contact the laboratory at [phone] for redraw ?? instructions. NON-[facility] HIE INR0.9[facility] CtrComment: ?? INR Therapeutic Range ?? A) Pre- and Peroperative OAT started two weeks before ?? surgery. ? NOT HIP SURGERY: ?? 1.5 - 2.5 ?HIP SURGERY: ?2 ??- ??3 ?? B) Primary and secondary prevention of venous ?THROMBOSIS: ? 2 ??- ??3 ?? C) Active venous thrombosis, pulmonary embolism ?? and prevention of recurrent venous thrombosis: ?? 2 ??- ??3 ? D) Prevention of arterial thromboembolism ?? including patients with mechanical heart valves: 3 ??- 4.5 NON-[facility] HIE Partial Thromboplastin Time31.925.1 - 36.5 [facility] CtrComment: ?? A hematocrit value greater than 55% may lead to inaccurate ?? results in coagulation testing. Patients having hematocrit values >55% require a special collection tube for ?? coagulation studies. ?? Please contact the laboratory at [phone] for redraw ?? instructions. PERFORMED BY: [facility] [address] [place] [address] PATHOLOGIST TRAIN CALLER CARLOS VÁZQUEZ M.D. Specimen (Source)Anatomical Location / LateralityCollection Method / Volume Collection TimeReceived TimeOU MEDICAL CENTER [facility] Platelet poor plasma xukdwmmf98/19/2025 10:40 AM EST Narrative Authorizing ProviderResult TypeResult StatusHarjeet Cheung MDLAB BLOOD ORDERABLESFinal ResultPerforming OrganizationAddressCity/State/ZIP CodePhone Number [facility] [address] [place] [address], [facility] [address] [place] [address] * Electrocardiogram (03/21/2025 10:20 AM EST)Specimen (Source)Anatomical Location / LateralityCollection Method / VolumeCollection TimeReceived Time 03/21/2025 10:20 AM EST Narrative [facility] - 03/22/2025 4:32 PM EST [facility] ?[facility] Main [place] ?[address] ? [place] [address] ? Electrocardiograph Report ? Signed ? Patient: Brayden,Renuka A ?MR#: [id number] ?? 982 ? : 1950 ?Acct:[id number] ? Age/Sex: 74 / F ?ADM Date: 03/21/25 ? Loc: PS ?Room: ?Type: DEP CLI ?? Attending Dr: Harjeet Cheung MD ? Ordering Provider: Harjeet Cheung MD, FACC ?? Date of Service: 03/21/25 ?? ECG/ECG 12 lead ECG: pre op ? Copies to: ? Test Reason : ?? Blood Pressure : ?? */* ?? mmHG ?? Vent. Rate : ??70 BPM ? Atrial Rate : ??70 BPM ? P-R Int : 170 ms ?QRS Dur : 130 ms ?QT Int : 428 ms ? P-R-T Axes : ??36 ??33 100 degrees ?QTcB Int : 462 ms ? Normal sinus rhythm ?? Left bundle branch block ?? Abnormal ECG ?? Confirmed by Xi Li ([id number]) on 03/22/2025 4:32:26 PM ? Referred By: ?Electronically Signed By: Xi Li ? Transcribed By: ? MUS ? Signed By ? Xi Li MD ? 5 1632 Authorizing ProviderResult TypeResult StatusHarjeet Cheung MDECGene ORDERABLES Final ResultPerforming OrganizationAddressCity/State/ZIP CodePhone Number [facility] [address] [place] [place] [address], [place] * OUTSIDE LAB SCAN (02/28/2025) Narrative 02/28/2025 Ordered by an unspecified provider. Authorizing ProviderResult TypeResult StatusGeneric Provider ScanningOUTSIDE SCANFinal Result * TRANSTHORACIC ECHO (TTE) LIMITED (02/19/2025 2:19 PM EDT)ComponentValueRef RangeTest MethodAnalysis TimePerformed AtPathologist SignatureLV Biplane EF62% SYNGOLVOT diam2.09cmSYNGOMV E/A ratio0.84SYNGOLA vol index A/L39.3ml/z5FAKEZHG EF43%SYNGOLVIDd4.24cmSYNGOLV A4C EF50.9SYNGOSpecimen (Source)Anatomical Location / LateralityCollection [...] Narrative [facility] - 02/19/2025 4:37 PM EDT ?[address], [address], [place], [place] [address] ? TRANSTHORACIC ECHOCARDIOGRAM REPORT Patient Name: ? RENUKA A BRAYDEN ? Reading Physician: ?[id number] Wu ?IbrahimMD, FACC Study Date: ? 02/19/2025 ?Ordering Provider: ?[id number] HARJEET M ?CHEUNG MRN/PID: ?[id number] ?Fellow: Accession#: ? [id number] ?Nurse: Date of /Age: ??1950 / 74 years Beam Builder Helper: ?Светлана Annalee ?RDCS, RVT Gender Assigned at ??F ? Additional Staff: : Height: ? 154.94 cm ? Admit Date: Weight: ? 67.13 kg ?Admission Status: ? Outpatient BSA / BMI: ?1.66 m2 / 27.96 ? Department Location: ??[facility] Heart ?kg/m2 ? Hui Blood Pressure: 116 /76 mmHg Study Type: ?TRANSTHORACIC ECHO (TTE) LIMITED Diagnosis/ICD: Nonrheumatic mitral (valve) insufficiency-I34.0; Other ill ? defined heart diseases-I51.89 Indication: ?Abnormal EKG-LBBB, HTN, Sepsis with Multiorgan Failure-10/2024, ? Overweight, CKD-Stage III CPT Codes: ? Echo Limited-51479 Study Detail: The following Echo studies were [...] filling with normal left atrial filling pressure. Septal motion suggest [...] (1.8-2.4cm) AORTA: Asc Ao Diam 2.89 cm [id number] Harjeet Cheung MD, [facility] Electronically signed on 02/19/2025 at 4:37:04 PM Final Procedure Note Harjeet Cheung MD - 02/19/[address], Suite [facility], [place] [address] TRANSTHORACIC ECHOCARDIOGRAM REPORT Patient Name: RENUKA A BRAYDEN Reading Physician: [id number] Cheung MD,[facility] Study Date: 02/19/2025 Ordering Provider: [id number] WILYJEMMADerrek MADHAVI MRN/PID: [id number] Fellow: Nurse: Date of /Age: 8 1950 / 74 years Beam Builder Helper: Alberto RIZVI RVT Gender Assigned at F Additional Staff: : Height: 154.94 cm Admit Date: Weight: 67.13 kg Admission Status: Outpatient BSA / BMI: 1.66 m2 / 27.96 Department Location: [facility] kg/m2 [place] Blood Pressure: 116 /76 mmHg Study Type: TRANSTHORACIC ECHO (TTE) LIMITED Diagnosis/ICD: Nonrheumatic mitral (valve) insufficiency-I34.0; Otherill defined heart diseases-I51.89 Indication: Abnormal EKG-LBBB, HTN, Sepsis with MultiorganFailure-10/2024, Overweight, CKD-Stage III CPT Codes: Echo Limited-13622 Study Detail: The following Echo studies were [...] (1.8-2.4cm) AORTA: Asc Ao Diam 2.89 cm [id number] Harjeet Cheung MD, [facility] Electronically signed on 02/19/2025 at 4:37:04 PM [...] severe mitral valve regurgitation. Authorizing ProviderResult TypeResult StatusHarjeet Cheung [facility] ECHO PROCEDURESFinal ResultPerforming OrganizationAddressCity/State/ZIP CodePhone Number [facility] from Last 3 Months Insurance Care Teams Team MemberRelationshipSpecialtyStart DateEnd Date Mervin Chanel DO [address] [place] [address] PCP - GeneralInternal Medicine01/05/24
--- OUTSIDE RECORDS SUMMARY | 2025-03-26 14:16 | XMS_ITS | Clinical Summary ---
Author Organization [facility] Address [address], [address] [place] [address] Care Team Providers Care Information Technology Administrator Name Role Phone Unavailable Primary Care Provider Unavailabl e Allergies Active AllergyReactionsCriticalityNoted PpsyFllumzylLlfucpxpytev55/23/2018 Hbwsxkrukzm24/23/2018 Medications MedicationSigDispense QuantityRefillsLast FilledStart DateEnd DateStatus traMADol (ULTRAM) 50 MG tablet Take 50 mg by mouth as needed for Pain.Active Naproxen Sodium (ALEVE PO) Take by mouth as neededActive Active Problems No known active problems Social History Tobacco UseTypesPacks/DayYears UsedDateSmoking Tobacco: Never AssessedSmokeless Tobacco: NeverCommentsUnknownSex and Gender InformationValueDate RecordedSex Assigned at BirthNot on fileLegal FtqFallnb22/11/2018 2:11 PM EST Gender IdentityNot on fileSexual OrientationNot on file Last Filed Vital Signs Vital SignReadingTime TakenCommentsBlood Pressure--Pulse--Waaxyeztami60.9 ??C (96.6 ??F)05/25/2017 3:22 PM ESTRespiratory Rate--Oxygen Saturation--Inhaled Oxygen Concentration--Obafuj72.6 kg (180 lb)05/25/2017 3:22 PM NTVVuldcm317 cm (5' 3 )05/25/2017 3:22 PM ESTBody Mass Index31.8905/25/2017 3:22 PM EST Plan of Treatment Not on file Insurance MemberSubscriberPlan / Payer (Effective 2017-Present)Name:Renuka Owen Relation to Subscriber:SelfName:Renuka Owen Payer ID:Not on file Group ID:Not on file Type:Not on file Address: [place] [id number]
--- OUTSIDE RECORDS SUMMARY | 2025-03-26 14:16 | XMS_ITS | Encounter Summary ---
Author Organization [facility] Address [address] [place] [address] Phone Care Team Providers Care Crusher And Blender Operator Name Role Phone Mervin Chanel Primary Care Provider [phone] Encounter Details DateTypeDepartmentCare Team (Latest Contact Info)Guxffhxgylx82/11/2025Telephone [facility] Medical Office Building [address] [place] [address] [address] [place] [phone] Bryce Cheung MD [address] [place] [address] 2, [facility] [address] [place] [address] Social History Tobacco UseTypesPacks/DayYears UsedDateSmoking Tobacco: NeverPassive Smoke Exposure: NeverSmokeless Tobacco: NeverAlcohol UseStandard Drinks/WeekComments Yes0 (1 standard drink = 0.6 oz pure alcohol)rarelyCommentsNoSex and Gender InformationValueDate RecordedSex Assigned at LnwxdTudhvv58/31/2023 2:42 PM EDTLegal GcaLtqsbd33/26/2022 2:47 PM ESTGender BteatfyyRfermd06/31/2023 2:42 PM EDTSexual OrientationNot on filedocumented as of this encounter Miscellaneous Notes * Telephone Encounter - Carlene Westfall - 03/13/2025 7:52 AM EST Left and Right Heart Cath 24343 DX: I34.0 and Z01.810 at [facility] does not require prior auth as the patient has Medicare primary. Transesophageal Echo 01041 DX: I34.0 and Z01.818 at [facility] does not require prior auth as the patient has Medicare primary. documented in this encounter Plan of Treatment DateTypeDepartmentCare Team (Latest Contact Info)Vkpomjxcqei51/15/2026 10:20 AM EDTOffice Visit [facility] [address] [place] [address] Bryce Cheung MD [address] [facility] [address], [address] [place] [address] documented as of this encounter Visit Diagnoses Not on filedocumented in this encounter Additional Health Concerns AssessmentNoted TimeA fall risk assessment has been completed for the patient 01/30/2025 9:25 AM EDTdocumented as of this encounter Care Teams Team MemberRelationshipSpecialtyStart DateEnd Date Mervin Chanel DO [address] [place] [address] PCP - GeneralInternal Medicine01/05/24documented as of this encounter
--- OUTSIDE RECORDS SUMMARY | 2025-03-26 14:16 | XMS_ITS | Encounter Summary ---
Author Organization [facility] Address [address] [place] [address] Phone Care Team Providers Care Veterinary Practitioner Name Role Phone Darío Mervin Galo FENG Primary Care Provider [phone] Reason for Referral * CV Imaging (Routine) - AuthorizedSpecialtyDiagnoses / ProceduresReferred By ContactReferred To ContactCardiology Diagnoses Mitral valve insufficiency, unspecified etiology Pre-procedural examination Procedures Transesophageal Echo (DASHAWN) CO ECHO TRANSESOPHAG R-T 2D W/PRB IMG ACQUISJ I&R CO DOPPLER ECHO PULSE WAVE W/SPECTRAL DISPLAY COMPL CO DOPPLER ECHO COLOR FLOW VELOCITY MAPPING CO ECHO TRANSESOPHAG R-T 2D W/PRB IMG ACQUISJ I&R CO DOPPLER ECHO PULSE WAVE W/SPECTRAL DISPLAY COMPL CO DOPPLER ECHO COLOR FLOW VELOCITY MAPPING CO CARDIOVERSION ELECTIVE ARRHYTHMIA EXTERNAL CO ECHO TRANSESOPHAG CONGEN PROBE PLCMT IMGNG I&R CO DOPPLER ECHO PULSE WAVE W/SPECTRAL DISPLAY COMPL CO DOPPLER ECHO COLOR FLOW VELOCITY MAPPING Bryce Cheung MD [address] [place] [address], [address] [address] Phone: tel: fax: Referral IDStatusReasonStart DateExpiration DateVisits RequestedVisits [id number] Perform Procedure Encounter Details DateTypeDepartmentCare Team (Latest Contact Info)Ofqsbtrbdvu09/10/2025Telephone [facility] [address] [facility] [address] [place] [address] Sintia Bermeo RN Social History Tobacco UseTypesPacks/DayYears UsedDateSmoking Tobacco: NeverPassive Smoke Exposure: NeverSmokeless Tobacco: NeverAlcohol UseStandard Drinks/WeekComments Yes0 (1 standard drink = 0.6 oz pure alcohol)rarelyCommentsNoSex and Gender InformationValueDate RecordedSex Assigned at MdzmaIuutmf67/31/2023 2:42 PM EDTLegal JewYcvlmd54/26/2022 2:47 PM ESTGender TgjegelaKdhjfc52/31/2023 2:42 PM EDTSexual OrientationNot on filedocumented as of this encounter Miscellaneous Notes * Telephone Encounter - Pari Teague LPN - 03/12/2025 3:58 PM EST Patient denies allergy to dye or diabetes. Advised can take medications morning of with water. Verbalized understanding * Telephone Encounter - Sintia Bermeo RN - 03/12/2025 9:43 AM EST Patient evaluated per structural heart . Per Dr Cheung patient is to be scheduled for Left and Right heart cath. Orders entered in [employer] and sent to Dr Cheung for signature. documented in this encounter Plan of Treatment DateTypeDepartmentCare Team (Latest Contact Info)Ykghtcdekch35/15/2026 10:20 AM EDTOffice Visit [place] [address] [place] [phone] Bryce Cheung MD [address] [facility] [address], [address] [place] [address] NameTypePriorityAssociated DiagnosesOrder ScheduleCardiac Catheterization - Onbase ScanCardiac CathRoutine Mitral valve insufficiency, unspecified etiology Pre-procedural examination Ordered: 03/12/2025Transesophageal Echo (DASHAWN)EchocardiographyRoutine Mitral valve insufficiency, unspecified etiology Pre-procedural examination Expected: 03/12/2025 (Approximate), Expires: 03/12/2027documented as of this encounter Visit Diagnoses Diagnosis Mitral valve insufficiency, unspecified etiology- Primary Pre-procedural examination Unspecified pre-operative examination documented in this encounter Additional Health Concerns AssessmentNoted TimeA fall risk assessment has been completed for the patient 01/30/2025 9:25 AM EDTdocumented as of this encounter Care Teams Team MemberRelationshipSpecialtyStart DateEnd Date Mervin Chanel DO [address] [place] [address] PCP - GeneralInternal Medicine01/05/24documented as of this encounter
--- OUTSIDE RECORDS SUMMARY | 2025-03-26 14:17 | XMS_ITS | Encounter Summary ---
Author Organization [facility] Address [address] [place] [address] Phone Care Team Providers Care Nut Tightener Name Role Phone Mervin Chanel Primary Care Provider [phone] Encounter Details DateTypeDepartmentCare Team (Latest Contact Info)Zcuouvhfnbo94/19/2025Orders Only [facility] [address] [place] [address] Bryce Cheung MD [address] [facility] 2, [address] [place] [address] Social History Tobacco UseTypesPacks/DayYears UsedDateSmoking Tobacco: NeverPassive Smoke Exposure: NeverSmokeless Tobacco: NeverAlcohol UseStandard Drinks/WeekComments Yes0 (1 standard drink = 0.6 oz pure alcohol)rarelyCommentsNoSex and Gender InformationValueDate RecordedSex Assigned at PhsnbMkgdba29/31/2023 2:42 PM EDTLegal ZtxSnkbbi48/26/2022 2:47 PM ESTGender JyfmnlwkFkyhqt64/31/2023 2:42 PM EDTSexual OrientationNot on filedocumented as of this encounter Plan of Treatment DateTypeDepartmentCare Team (Latest Contact Info)Icuwrdaouew31/15/2026 10:20 AM EDTOffice Visit [place] [address] [place] [phone] Bryce Cheung MD [address] [facility] 2, [address] [place] [address] documented as of this encounter Procedures Procedure NamePriorityDate/TimeAssociated DiagnosisCommentsNON- HIE COMPLETE BLOOD COUNT AUTO VWBSFmiqonm60/19/2025 10:40 AM EST NON-UH HIE BASIC METABOLIC ZTWQLYqolxws17/19/2025 10:40 AM EST NON-UH HIE COAGULATION OUDGTXVNuwxdmd00/19/2025 10:40 AM EST ELECTROCARDIOGRAM 12 LEAD03/21/2025 10:20 AM EST documented in this encounter Results * (ABNORMAL) NON-UH CTE Basic Metabolic Panel (03/21/2025 10:40 AM EST)Component ValueRef RangeTest MethodAnalysis TimePerformed AtPathologist SignatureNON-RUSTE Edhvgux7547 - 100 mg/dLWayne Hospital CtrComment: ?? Random Glucose Reference Range is dependent on time and ?? content of last meal. Glucose of more than 200 mg/dL in a ?? nonstressed, ambulatory subject supports the diagnosis of ?? Diabetes Mellitus. ?? ADA recommended reference range NON-RUSTE Blood Urea Osfldqdb55(H)7 - 25 mg/dLWayne Hospital Ctr NON-RUSTE Creatinine1.070.60 - 1.20 mg/dLMagruder HospitalE ESTIMATED GFR54.170[facility] HospitalE Xjqgph749880 - 145 mmol/LFMetroHealth Main Campus Medical CenterE Potassium5.03.5 - 5.1 mmol/L [facility] Wsgjevej24471 - 107 mmol/LFMetroHealth Main Campus Medical CenterE Carbon Uguffvl97.721.0 - 31.0 mmol/LFMetroHealth Main Campus Medical CenterE Anion Gap9.36.0 - 15.0[facility]E Calcium9.48.6 - 10.3 mg/dLWayne Hospital CtrComment: PERFORMED BY: [facility] [address] [facility] [place] [id number] PATHOLOGIST PROCESS INSPECTOR CARLOS VÁZQUEZ M.D. Specimen (Source)Anatomical Location / LateralityCollection Method / Volume Collection TimeReceived TimeAMG SPECIALTY H[facility] Plasma specimen or serum specimen or whole blood /19/2025 10:40 AM EST Narrative Authorizing ProviderResult TypeResult StatusBryce ANGELO BLOOD ORDERABLESFinal ResultPerforming OrganizationAddressCity/State/ZIP CodePhone Number [facility] [address] [place] [phone], [facility] [address] [place] [phone] * NON-UH HIE Coagulation Profile (03/21/2025 10:40 AM EST)ComponentValueRef RangeTest MethodAnalysis TimePerformed AtPathologist SignatureNON- HIE Prothrombin Time9.89.0 - 12.9 [facility] CtrComment: ?? A hematocrit value greater than 55% may lead to inaccurate ?? results in coagulation testing. Patients having hematocrit values >55% require a special collection tube for ?? coagulation studies. ?? Please contact the laboratory at [phone] for redraw ?? instructions. NON-UH HIE INR0.9Way[facility] Hospital CtrComment: ?? INR Therapeutic Range ?? A) [...] NON-UH HIE Partial Thromboplastin Time31.925.1 - 36.5 [facility] CtrComment: ?? A hematocrit value greater than 55% may lead to inaccurate ?? results in coagulation testing. Patients having hematocrit values >55% require a special collection tube for ?? coagulation studies. ?? Please contact the laboratory at [phone] for redraw ?? instructions. PERFORMED BY: [address] [place] [address] PATHOLOGIST PROCESS INSPECTOR ACRLOS VÁZQUEZ M.D. Specimen (Source)Anatomical Location / LateralityCollection Method / Volume Collection TimeReceived TimeAMG SPECIALTY HOSPITAL [facility] Platelet poor plasma envwnrgg72/19/2025 10:40 AM EST Narrative Authorizing ProviderResult TypeResult StatusBryce Cheung MDANDERSON COUNTY HOSPITAL BLOOD ORDERABLESFinal ResultPerforming OrganizationAddressCity/State/ZIP CodePhone Number [address] [address], [facility] [address] [place] [address] * NON-[facility] HIE Complete Blood Count Auto Diff (03/21/2025 10:40 AM EST)Component ValueRef RangeTest MethodAnalysis TimePerformed AtPathologist SignatureNON- HIE White Blood Count6.83.8 - 11.6 [CFU]/mLMartins Ferry HospitalNON- HIE Uncorrected WBC6.83.8 - 11.6 10*3/[facility] Red Blood Count4.703.60 - 5.00 10*6/[facility] NON-UH HIE Rtidjyuebu82.311.8 - 15.4 g/dLMartins Ferry HospitalNON- HIE Ymxybtjber72.034.0 - 46.4 %[facility] HospitalNON- HIE Mean Corpuscular Gnfjpz07.080 - 100 fLMartins Ferry HospitalNON- HIE Mean Corpuscular Ufnrarrfsz74.324.7 - 34.3 pgFWestern Reserve HospitalNON-UH HIE Mean Corpuscular HGB Conc33.332.0 - 35.0 g/dLWayne Hospital CtrNON- HIE Red Cell Distribution Width13.811.9 - 15.3 %[facility] CtrNON- HIE Platelet Aampr806311 - 450 10*3/[facility] CtrNON-UH HIE Mean Platelet Volume7.56.3 - 10.7 fLMartins Ferry HospitalNON- HIE Neutrophils % (Auto)66.1. %[facility] CtrNON- HIE Lymphocytes % (Auto)17.9. %[facility] HospitalNON- HIE Monocytes % (Auto)11.5. %[facility] HospitalNON- HIE Eosinophils % (Auto)3.5. %[facility] HospitalNON- HIE Basophils % (Auto)1.0. %[facility] HospitalNON- HIE NRBC%0.10 - 0.5 /100{WBC}[facility]- HIE Neutrophils # (Auto)4.51.8 - 7.7 10*3/[facility] CenterNON- HIE Lymphocytes # (Auto)1.2 1.00 - 4.8 10*3/[facility] CtrNON- HIE Monocytes # (Auto) 0.80.0 - 0.8 10*3/[facility] CenterNON- HIE Eosinophils # (Auto)0.20.0 - 0.45 10*3/[facility] CenterNON- HIE Basophils # (Auto)0.10.0 - 0.2 10*3/[facility] CtrComment: PERFORMED BY: [facility] [address] [place] [address] PATHOLOGIST PROCESS INSPECTOR CARLOS VÁZQUEZ M.D. Specimen (Source)Anatomical Location / LateralityCollection Method / Volume Collection TimeReceived TimeAMG SPECIALTY HOSPITAL AT [facility] Whole blood ilsgscgl09/19/2025 10:40 AM EST Narrative Authorizing ProviderResult TypeResult StatusBryce Cheung MDLAB BLOOD ORDERABLESFinal ResultPerforming OrganizationAddressCity/State/ZIP CodePhone Number [facility] [address] [place] [address], [facility] [address] [place] [address] * Electrocardiogram (03/21/2025 10:20 AM EST)Specimen (Source)Anatomical Location / LateralityCollection Method / VolumeCollection TimeReceived Time 03/21/2025 10:20 AM EST Narrative [facility] - 03/22/2025 4:32 PM EST [facility] ?[facility] [address] [place] ?[address] ? [place] [address] ? Electrocardiograph Report ? Signed ? Patient: Oniel,Renuka A ?MR#: [id number] ?? [id number] ? : 1950 ?Acct:[id number] ? Age/Sex: 74 / F ?ADM Date: 03/21/25 ? Loc: PS ?Room: ?Type: DEP CLI ?? Attending Dr: Bryce Cheung MD ? Ordering Provider: Bryce Cheung MD, FACC ?? Date of Service: [...] Abnormal ECG ?? Confirmed by Xi Li ([id number]) on 03/22/2025 4:32:26 PM ? Referred By: ?Electronically Signed By: Xi Li ? Transcribed By: ? MUS ? Signed By ? Xi Li MD ? 5 1632 Authorizing ProviderResult TypeResult StatusHajessica Cheung MDECG ORDERABLES Final ResultPerforming OrganizationAddressCity/State/ZIP CodePhone Number [facility] [address] [place] [address], documented in this encounter Visit Diagnoses Not on filedocumented in this encounter Additional Health Concerns AssessmentNoted TimeA fall risk assessment has been completed for the patient 01/30/2025 9:25 AM EDTdocumented as of this encounter Care Teams Team MemberRelationshipSpecialtyStart DateEnd Date Mervin Chanel, [place] [address] PCP - GeneralInternal Medicine01/05/24documented as of this encounter
--- OUTSIDE RECORDS SUMMARY | 2025-03-26 14:17 | XMS_ITS | Clinical Summary ---
Author Organization [facility] Address [address] [facility] [place] [address] Care Team Providers Care Safety Spec Name Role Phone Mervin Chanel Primary Care Provider [phone] Allergies Active AllergyReactionsCriticalityNoted DateCommentsAtorvastatinHives,RashLow 12/28/20220814Fkmzopoeftxm55/03/2025 Other Reaction(s): Unknown Reaction Sykhjwzrngj56/28/2023 Other Reaction(s): Unknown Medications MedicationSigDispense QuantityRefillsLast FilledStart [...] mg) by mouth at bedtime 90 tablet 311//[id number]/5Active traZODone (Desyrel) 50 MG tablet 03/28/2024ctive omeprazole (PriLOSEC) [address] capsule 5Active metoprolol succinate XL (Toprol-XL) 25 MG 24 hr tablet Take by mouth Do not crush or chew.Active tolterodine (Detrol) 1 MG tablet Take 1 mg by mouth in the morning and 1 mg before bedtime.Active nortriptyline (Pamelor) 10 MG capsule Indications:Bilateral carpal tunnel syndromeTake 1 capsule (10 mg) by mouth at bedtime 30 capsule 11010/23//ctive Additional Information Patient not taking.Reported on 03/19/2025 thiamine (Vitamin B-1) 100 MG tablet Indications:Bilateral carpal tunnel syndromeTake 1 tablet (100 mg) by mouth Daily 30 tablet 11010/23//ctive Additional Information Patient not taking.Reported on 03/19/2025 carvedilol (Coreg) 6.25 MG tablet Take 6.25 mg by mouth in the morning and 6.25 mg in the evening. Take with meals.Active dapagliflozin (Farxiga) 10 MG Take 10 mg by mouthActive loratadine (Claritin) 10 MG tablet Take by mouthActive melatonin 10 MG tablet Take by mouthActive biotin 5000 MCG capsule Take by mouthActive Active Problems ProblemNoted DateDiagnosed ZfjnEpepp-hp-zjgvvfc kidney zkdbeh1110/23/2024llergic vtlzavav21/23/8190Ojlllr71/23/2025rthritis of left hip10/23/2024arpal tunnel syndrome of left wrist10/23/2024hemotherapy-induced peripheral neuropathy 10/23/2024Hip pain10/23/2024hronic HFrEF (heart failure with reduced ejection fraction)10/23/2024hronic pain10/23/2024hronic rfgnagkmoscw54/23/2025hronic venous insufficiency of lower memfqbkzt11/23/0696Ywznrafgp43/23/2025Degenerative arthritis of left foot10/23/20244478Ayajnsak96/23/2025Difficulty sgexdrf9810/23/2024 Drug-induced ivuvopfmadqlfh84/23/3845Gmhm70/23/2025History of lumbar fusion 10/23/2024History of total left knee dfaprcfjpij63/23/0590Ctzgrpfyhof75/23/2025 Complete tear of left rotator cuff10/23/2024Left foot pain10/23/2024Lumbar stenosis without neurogenic fsriwyyzjwbw58/23/2025Mild pipqbifqeu45/23/2025Nasal polyp, ffalanqwg83/23/2025Neck pain10/23/2024Nocturnal leg jztnxv3010/23/2024 Orthostatic /23/5809Rzxpdadfcyeqje47/23/1147Tgudnkllwiyj24/23/2025 Other low back pain10/23/2024Pain of right sacroiliac joint10/23/2024Pes anserinus bursitis of left knee10/23/2024Postoperative pain10/23/2024Internal derangement of left ulacqcip14/23/2025Internal derangement of right shoulder 10/23/20248826Glwlnumoqxbovoinsc38/23/2025S/P left eyhtkjcbdj60/23/2025Inflammation of right sacroiliac joint10/23/20249765Spommkqwy20/23/2025ervical spondylosis with uspksznwisoim24/23/2025Lumbar adjacent segment disease with spondylolisthesis 10/23/2024Lumbar ooagqjznbwj75/23/2025Spondylolisthesis, lumbar urnxpn2510/23/2024 Tinnitus of both ears10/23/2024Unspecified rotator cuff tear or rupture of right shoulder, not specified as ybiukgqmt18/23/2025Unsteady gait when walking 10/23/2024ilateral carpal tunnel yfnjznpy70/23/2025Never smoked tobacco 07/15/2023Keratoconjunctivitis sicca of both eyes not specified as Sjogren's 06/09/2023Left ventricular systolic dgkyjbxqvqi54/16/6633Qtxuw36/31/2023MI 28.0-28.9,adult02/28/20234371Tuaoon73/29/2023hest pain02/28/2023Essential pngxuitzkppf61/29/2023Left bundle branch block (LBBB)02/28/2023Mitral edelscismpxbe40/29/2023rimary open angle glaucoma (POAG) of both eyes, mild stage02/26/2023CO (posterior capsular opacification), hmangtsic23/27/2023 Obesity, Class I, BMI 30-34.9006/18/2020hronic kidney spvvvxm0306/03/2020GERD (gastroesophageal reflux disease)06/03/2020History of breast ivgkeb5210/09/2014 Idiopathic progressive /28/2012Malignant neoplasm of female breast 06/15/2011nxiety state11/16/2007symptomatic varicose veins11/16/2007enign hypertensive heart disease without congestive heart rowlvxw3411/16/2007Generalized gvvdeykoimqfvw38/16/2008Irritable bowel jodyxthq54/16/2008Pure tkbaxwjdtwirxmzlqkwi33/16/2008Syncope and /16/2008 Resolved Problems ProblemNoted DateDiagnosed DateResolved DateDry eyes/11/2023 Encounters DateTypeDepartmentCare HwjuDxbzkyguzcj58/17/2025 3:15 PM ESTProcedure Visit [facility] [address] [place] [address] Wilfrid Olson DPDerrek Dermatophytosis of nail (Primary Dx); Dystrophic nail; Pain around toenail, right foot; Pain around toenail, left foot; Difficulty lnoqefv9803/19/2025amboo flowsheet [facility] [address] [place] [address] Wilfrid Olson DPM 03/19/20257458Nwwcer42/03/2025 2:15 PM ESTOffice Visit [facility] [address] [place] [address] Nba Malhotra DO Primary open angle glaucoma (POAG) of both eyes, mild stage (Primary Dx); PCO (posterior capsular opacification), bilateral; Keratoconjunctivitis sicca of both eyes not specified as Sjogren'03/05/2025 Bamboo flowsheet [facility] [address] [place] [address] Nba Malhotra DO 03/05/20254553Mazesd07/13/2025 2:50 PM EDTAncillary Procedure [facility] [address] [place] [phone] 02/12/2025 2:45 PM EDTOffice Visit [facility] [address] [place] [phone] Dean Ren PA Acute pain of right shoulder (Primary Dx); Rotator cuff arthropathy of right shoulder; Subacromial impingement of right /13/2025amboo flowsheet [facility] [address] [place] [phone] Dean Ren PA 02/12/2025Travelfrom Last 3 Months Immunizations ImmunizationAdministration DatesNext DueInfluenza, High Dose Seasonal, Preservative Free01/29/2020,02/17/2018,02/02/2017Influenza, High-dose Seasonal, Quadrivalent, Preservative Free01/28/2021,01/29/2020Influenza, Seasonal, Quadrivalent, Mqfvuoanne79/14/2022Influenza, Biehumuovmi05/25/2012Influenza, injectable, cqlsainaglvq77/01/2016Influenza, injectable, quadrivalent, preservative free01/14/2022,02/01/2020,02/17/2019,06/09/2017,02/16/2017, 02/10/2017,05/05/2016,04/02/2016Influenza, seasonal, sfwuptqmrk55/01/2022Moderna SARS-CoV-2 Yizbxjafegn26/08/2023Pneumococcal Conjugate PCV 13005/11/2022, 12/30/2016Pneumococcal Polysaccharide ZRCU6948,02/08/2017,05/03/2015, 05/03/2013,01/31/2013,06/27/20116622BRRK-XBC-2 (COVID-19) vaccine, mRNA, spike protein, LNP, bivalent, preservative free, 30 mcg/0.3 mLdose, nicky-sucrose gsyplayshkz11/26/2022Zoster, Aegeempovkw39/25/2021,02/28/2020Zoster, live 01/31/2014 Family History Medical HistoryRelationNameCommentsLeukemiaBrotherCancerFatherClement Pink Testicular cancerFatherClement BarnesBreast cancerMotherJosephine RedingerCancer MotherJosephine RedingerGlaucomaMotherJosephine RedingerHearing lossMother Alejandra RedingerRelationNameStatusCommentsBrotherFatherClement BarnesDeceased MotherJosephine RedingerAlive Social History Tobacco UseTypesPacks/DayYears UsedDateSmoking Tobacco: NeverSmokeless Tobacco: Never Tobacco Cessation:Counseling Given: Not Answered Alcohol UseStandard Drinks/WeekCommentsYes1 (1 standard drink = 0.6 oz pure alcohol)caffeine intake: 2-3 cups per day of diet cokeCommentsUnknownSex and Gender InformationValueDate RecordedSex Assigned at BirthNot on fileLegal GpuNjzlat71/15/2023 7:03 PM EDTGender IdentityNot on fileSexual OrientationNot on file Last Filed Vital Signs Vital SignReadingTime TakenCommentsBlood Vdfsravp184/64010/23/2024 11:00 AM EDT Pulse--Temperature--Respiratory Rate--Oxygen Saturation--Inhaled Oxygen Concentration--Veogry06.8 kg (156 lb)03/19/2025 3:07 PM TQRTijbza871.5 cm (5' 2 )03/19/2025 3:07 PM ESTBody Mass Index28.5303/19/2025 3:07 PM EST Plan of Treatment DateTypeDepartmentCare Team (Latest Contact Info)Mwdyxmuyvpa55/04/2026 1:00 PM ESTProcedure Visit [facility] [address] [place] [address] Wilfrid Olson DPM [address] [place] [address] 09/03/2025 2:30 PM EDTOffice Visit [facility] [address] [place] [phone] Nba Malhotra, DO [address] [place] [address] Health MaintenanceDue DateLast DoneCommentsCT Xgzeboqkimfy13/06/1950Colonoscopy 1950Colorectal Cancer Yubsreqbp00/06/1950FIT-DNA1949FIT1950 FOBT1950 0438Pslmmmemcpnfi92/06/1950COVID-19 Vaccine ( season) 5001/22/2023, 05/10/2022, 02/22/2022, Additional history exists Pneumococcal Vaccine: 65+ XjbwtVkapaxsqb40/09/2023, 07/20/2020, 02/08/2017, Additional history existsInfluenza GhjjlycIbjfpfhnw70/15/2025, 02/25/2024, 01/22/2023, Additional history exists Procedures Procedure NamePriorityDate/TimeAssociated DiagnosisCommentsHUMPHREY VISUAL FIELD - OU - BOTH YLIRQxmdzrr63/03/2025 3:19 PM EST Primary open angle glaucoma (POAG) of both eyes, mild stage XR SHOULDER 2+ VIEWS WHEPKIvtogeq37/13/2025 2:47 PM EDT Acute pain of right shoulder from Last 3 Months Results * Bowen Visual Field - OU - Both Eyes (03/05/2025 3:19 PM EST)Anatomical RegionLateralityModalityHeadVisual Field Narrative 03/05/2025 3:19 PM EST Right Eye Reliability was good. Progression has been stable. Foveal threshold was normal. Findings include superior arcuate defect. Left Eye Reliability was good. Progression has been stable. Foveal threshold was normal. Findings include superior nasal step defect, inferior nasal step defect, central scotoma. Authorizing ProviderResult TypeResult StatusNba EVANGELISTA VISUAL FIELDFinal Result * XR shoulder 2+ views right (02/12/2025 [...] Final Result from Last [address] [place] [address] Care Teams Team MemberRelationshipSpecialtyStart DateEnd Date Mervin Chanel DO [address] [facility] [place] [phone] PCP - GeneralInternal Medicine09/30/22
--- OUTSIDE RECORDS SUMMARY | 2025-03-26 14:17 | XMS_ITS | Encounter Summary ---
Author Organization [facility] Address [address] [place] [address] Phone Care Team Providers Care Medical Sonographer Name Role Phone Mervin Chanel Primary Care Provider [phone] Encounter Details DateTypeDepartmentCare Team (Latest Contact Info)Pqaqjjnqoda86/21/2025Orders Only [facility] [address] [place] [address] Harjeet Cheung MD [address] [facility] [address] [place] [address] Social History Tobacco UseTypesPacks/DayYears UsedDateSmoking Tobacco: NeverPassive Smoke Exposure: NeverSmokeless Tobacco: NeverAlcohol UseStandard Drinks/WeekComments Yes0 (1 standard drink = 0.6 oz pure alcohol)rarelyCommentsNoSex and Gender InformationValueDate RecordedSex Assigned at IgtyoAwupzi77/31/2023 2:42 PM EDTLegal IraKazeth47/26/2022 2:47 PM ESTGender SkndtdesVgxzhg22/31/2023 2:42 PM EDTSexual OrientationNot on filedocumented as of this encounter Plan of Treatment DateTypeDepartmentCare Team (Latest Contact Info)Lrazobdrzez62/15/2026 10:20 AM EDTOffice Visit [place] [address] [place] [phone] Harjeet Cheung MD [address] [facility] [address] [place] [address] documented as of this encounter Procedures Procedure NamePriorityDate/TimeAssociated DiagnosisCommentsTRANSESOPHAGEAL ECHO 03/23/2025 8:57 AM EST documented in this encounter Results * Transesophageal Echo (03/23/2025 8:57 AM EST)Specimen (Source)Anatomical Location / LateralityCollection Method / VolumeCollection TimeReceived Time 03/23/2025 8:57 AM EST Narrative [facility] - 03/23/2025 12:02 PM EST [facility] ?[facility] ?[address] ? [place] [address] ? Echocardiogram ? Signed ? Patient: Oniel,Renuka A ?MR#: [id number] ?? [id number] ? : 1950 ?Acct:[id number] ? Age/Sex: 74 / F ?ADM Date: 03/23/25 ? Loc: [place] ?Room: ?Type: REG SDC ?? Attending Dr: Harjeet Cheung MD ? Ordering Provider: Harjeet Cheung MD, FACC ?? Date of Service: 03/23/25/ ?? [facility] echo transesophageal DASHAWN: PRE-OP, MITRAL REGURGITATION ? Copies to: Harjeet Cheung MD, FACC ? Reason For Study: PRE-OP, MITRAL REGURGITATION [...] 0857 ?? Signed By: ?Harjeet Cheung MD, FACC ?03/23/25 1201 Authorizing ProviderResult TypeResult StatusHajessica Cheung [facility] ECHO PROCEDURESFinal ResultPerforming OrganizationAddressCity/State/ZIP CodePhone Number [facility] [address] [facility] [address] [place] [address], documented in this encounter Visit Diagnoses Not on filedocumented in this encounter Additional Health Concerns AssessmentNoted TimeA fall risk assessment has been completed for the patient 01/30/2025 9:25 AM EDTdocumented as of this encounter Care Teams Team MemberRelationshipSpecialtyStart DateEnd Date Mervin Chanel, DO [address] [place] [address] PCP - GeneralInternal Medicine01/05/24documented as of this encounter
--- OUTSIDE RECORDS SUMMARY | 2025-03-26 14:17 | XMS_ITS | Encounter Summary ---
Author Organization [facility] Address [address] [place] [address] Phone Care Team Providers Care Visiting Housekeeper Name Role Phone Mervin Chanel Primary Care Provider [phone] Encounter Details DateTypeDepartmentCare Team (Latest Contact Info)Nqijkyvpmyv32/21/2025Scanned Document [facility] [address] [place] [phone] Scanning, Generic Provider Social History Tobacco UseTypesPacks/DayYears UsedDateSmoking Tobacco: NeverPassive Smoke Exposure: NeverSmokeless Tobacco: NeverAlcohol UseStandard Drinks/WeekComments Yes0 (1 standard drink = 0.6 oz pure alcohol)rarelyCommentsNoSex and Gender InformationValueDate RecordedSex Assigned at FdyerElpjpz13/31/2023 2:42 PM EDTLegal UsfGkrnbp05/26/2022 2:47 PM ESTGender VezavdagHnvemy67/31/2023 2:42 PM EDTSexual OrientationNot on filedocumented as of this encounter Plan of Treatment DateTypeDepartmentCare Team (Latest Contact Info)Rrosezflktr32/15/2026 10:20 AM EDTOffice Visit [facility] [address] [place] [address] Bryce Cheung MD [address] [facility] [address] [place] [address] documented as of this encounter Procedures Procedure NamePriorityDate/TimeAssociated DiagnosisCommentsCARDIAC CATHETERIZATION PROCEDURE - ONBASE SCAN03/23/2025 UEGIAKQXKVAHAU87/21/2025 documented in this encounter Results * Cardiac Catheterization - Onbase Scan (03/23/2025) Narrative 03/23/2025 Ordered by an unspecified provider. Authorizing ProviderResult TypeResult StatusGeneric Provider ScanningCV CARDIAC CATH PROCEDURESFinal Result * Echocardiogram (03/23/2025) Narrative 03/23/2025 Ordered by an unspecified provider. Authorizing ProviderResult TypeResult StatusGeneric Provider ScanningCV ECHO PROCEDURESFinal Result documented in this encounter Visit Diagnoses Not on filedocumented in this encounter Additional Health Concerns AssessmentNoted TimeA fall risk assessment has been completed for the patient 01/30/2025 9:25 AM EDTdocumented as of this encounter Care Teams Team MemberRelationshipSpecialtyStart DateEnd Date Mervin Chanel DO [address] [place] [address] PCP - GeneralInternal Medicine01/05/24documented as of this encounter
--- OUTSIDE RECORDS SUMMARY | 2025-03-26 14:17 | XMS_ITS | Encounter Summary ---
Author Organization [facility] Address [address] [place] [address] Phone Care Team Providers Care Printed Circuit Designer Name Role Phone Mervin Chanel Primary Care Provider Encounter Details DateTypeDepartmentCare Team (Latest Contact Info)Gimtcgzxhex90/11/2025Orders Only [facility] [place] [address] [place] [address] [place] [phone] Daya Tai RN Social History Tobacco UseTypesPacks/DayYears UsedDateSmoking Tobacco: NeverPassive Smoke Exposure: NeverSmokeless Tobacco: NeverAlcohol UseStandard Drinks/WeekComments Yes0 (1 standard drink = 0.6 oz pure alcohol)rarelyCommentsNoSex and Gender InformationValueDate RecordedSex Assigned at VnahdAiubel79/31/2023 2:42 PM EDTLegal LwoVkxyms17/26/2022 2:47 PM ESTGender JjqnfdpzFrphdi20/31/2023 2:42 PM EDTSexual OrientationNot on filedocumented as of this encounter Plan of Treatment DateTypeDepartmentCare Team (Latest Contact Info)Gpahyvngunj33/15/2026 10:20 AM EDTOffice Visit [place] [address] [place] [address] Bryce Cheung MD [address] [facility] [address] [place] [address] documented as of this encounter Visit Diagnoses Not on filedocumented in this encounter Additional Health Concerns AssessmentNoted TimeA fall risk assessment has been completed for the patient 01/30/2025 9:25 AM EDTdocumented as of this encounter Care Teams Team MemberRelationshipSpecialtyStart DateEnd Date Mervin Chanel DO [address] [place] [address] PCP - GeneralInternal Medicine01/05/24documented as of this encounter
--- OUTSIDE RECORDS SUMMARY | 2025-03-26 14:21 | XMS_ITS | CCD ---
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 Bryce Buckley Attending Sangeeta vailable Jonatan, Dr. Bryce Buckley Referring Sangeeta vailable Sylvester Jacob Unavailable Vivi Biggs Unavailable DR EVELIN DOLL V Consulting Unavailable NOHEMI, DR AJAY Anglin Admitting Unavailable NIDIA, DR PHAN Primary Care Unavailable NOHEMI, DR AAJY Anglin Attending Unavailable NOHEMI, DR AJAY Anglin Consulting Unavailable ZIEBVIET, DR TAMY Beckman Consulting Unavailable APLING, KIRSTIE Madsen Attending Unavailable APLING, KIRSTIE Madsen Admitting Unavailable BALL, DR PHAN Primary Care [...] BALL, DR PHAN Consulting Unavailable Ball, Dr. Sylvester Braden Primary Care Bryce Bucio Attending Unavailable Ball, Dr. Sylvester Braden Primary Care Bryce Bucio Attending Unavailable DO Sylvester Jacob Primary Care Provider [phone] MD Devin Moreau Attending Provider Sylvester Jacob [...] Provider DO Sylvester Jacob Primary Care Provider [phone] JERRICA Biggs Attending Provider Sylvester Jacob DO Primary Care Provider Sylvester Jacob DO Primary Care Provider NON STAFF Primary Care Provider UnavailJERRICA Berg Attending Provider Nidia Sylvester Primary Care Provider MD Devin Moreau Attending Provider MD Artie Blackburn Attending Provider Nidia, DO Phan Primary Care Provider MD Devin Moreau Attending Provider DO Sylvester Jacob Primary Care Provider MD Artie Blackburn Attending Provider Nidia Sylvester Rosenthal Primary Care Provider Nidia, DO Phan Primary Care Provider MD Devin Moreau Attending Provider Sylvester Jacob MD Primary Care Provider Sylvester Jacob DO Primary Care Provider Stewart OWENS, Romel Torres Emergency Provider Nidia FENG Sylvester Primary Care Provider Sheila MARTELL, Josh Admit Provider Sheila MARTELL, Josh Attending Provider [phone] Danyelle Mathews MD Other Provider Regina Garcia DO Emergency Provider Isaiah Mejia DO Admit Provider Isaiah Mejia DO Attending Provider Sherin Arellano MD Other Provider Zenobia Carrasco MD Other Provider Saman Marino MD Other Provider Marley Mendieta APRN Other Provider Iglesia Garza DO Other Provider [phone] Jared Louis MD Other Provider Landon Whitfield MD Attending Provider Douglas MARTELL, Emory Anglin Attending Provider Sylvester Jacob DO Primary Care Provider Jose DO, Regina Anglin Emergency Provider Deisijoanie DO, Isaiah Admit Provider Adan MARTELL, Sherin Other Provider Landon Whitfield MD Attending Provider Luna MARTELL, Zenobia Other Provider Saman Marino MD Other Provider Marley Mendieta APRN Other Provider Belmarhsall DO, Iglesia Lamas Other Provider [phone] Heriberto MARTELL, Jared Palacios Other Provider Douglas MARTELL, Emory Anglin Attending Provider Sylvester Jacob DO Primary Care Provider Sylvester Jacob DO Primary Care Provider Sylvester Jacob DO Primary Care Provider Nidia Sylvester FENG Attending Provider Jose FENG, Regina Anglin Emergency Provider Sheila MARTELL, Josh Admit Provider Sheila MARTELL, Josh Attending Provider Sheila MARTELL, Josh Other Provider Carly Cuevas APRN Other Provider Josue Cosme MD Other Provider [phone] Alexa MARTELL, Lloyd Carlin Other Provider Panda Dietrich MD Other Provider Brown DOCharlie Other Provider Sam DO, Karyn P Other Provider Joshua MARTELL, Cherise Other Provider Leobardo MARTELL, Casimiro Rosenthal Other Provider Sorin Timmons MD Other Provider Tino Gaffney MD Other Provider Reid MARTELL, Danyelle Other Provider Juan David COMMISSIONING SPECIALIST-C, Kimmy Other Provider Unavailable Adan MARTELL, Sherin Other Provider Connor MARTELL, Hung Other Provider Sin Martinez MD Attending Provider Juan MARTELL, Sin Torres Other Provider [phone] Landon Whitfield MD Other Provider Liza Saldana RN Other Provider Unavailable Francis Butterfield DO Other Provider Jonatan MARTELL, Bryce Other Provider Akila MARTELL, Jayro Peres Other Provider Leighton MARTELL, Madan Other Provider Kelvin MARTELL, Allan Other Provider Carol Ann Bueno APRN Other Provider Lis Alcocer MD Other Provider Keshav MARTELL, Rosalinda Benedict Other Provider Donis MARTELL, Yo Other Provider Nazia [facility], Priti Lamas Other Provider Yessica MARTELL, Iraj Eduardo Attending Provider JACOB MERCADO Referring Unavailable SYLVESTER JACOB Primary Care Unavailable JACOB MERCADO Attending Unavailable JACOB MERCADO Referring Unavailable SYLVESTER JACOB Primary Care Unavailable Heriberto MARTELL, Jared Palacios Admit Provider [phone] Heriberto MARTELL, Jared Palacios Other Provider [phone] Deana LAKE, Regina Other Provider Unavailable Rosie RN, Theresa Other Provider Unavailable Hector RN, Magi Other Provider Unavailable Nolberto RN, Blanac Other Provider Unavailable Anish RN, Nava Other Provider Unavailable Ned RN, Areli Other Provider Unavailable Mary Marc MD Other Provider Cb Adam DO Other Provider Nohelia MARTELL, Dylan Other Provider [phone] Freddy Arnold DO Other Provider Tiera MARTELL, Guero Other Provider Yary Johnson MD Other Provider Leo FENG, Isaiah Other Provider [phone] Robin MARTELL, Servando Other Provider Unavailable Roxie Love APRN Other Provider Emily MARTELL, Jasmine Other Provider Sterling Coats MD Other Provider Aly MARTELL, Israel Other Provider Unavailable Becky MARTELL, Gage Other Provider Roberto FENG, Isaiah Other Provider Jeanna MARTELL, Wallace Other Provider Yonas Hoyos MD Other Provider Marya COMMISSIONING SPECIALIST-C, Julito Torres Other Provider Daniel ANTONY, Leonardo Anglin Other Provider Unavailable Zak Blanca MD Other Provider Joaquin Pal MD Other Provider Maynor Conway MD Other Provider Davian MARTELL, Dale Other Provider Unavailable Meño Saldana MD Other Provider Tatiana Sibley DO Other Provider Byron Dave DO Other Provider Xi Sosa APRN Other Provider Zechariah Mccarthy DO Other Provider Dorita MARTELL, Ambika Anglin Other Provider [phone] Myles ANTONY, Radhika Mills Other Provider [phone] Tammi Giordano APRN Other Provider Rodo MARTELL, Kaveh Other Provider Unavailable Max Haji MD Other Provider Lake DO, Nathaniel T Other Provider Chevy DO, Hortensiazid Other Provider Caesar Conway MD Other Provider Deborah Avina MD Other Provider [phone] Zunilda ANTONY, Belem Other Provider Unavailable Sung MARTELL, Lisette Other Provider Saman Duran MD Other Provider Surya MARTELL, Servando Walters Other Provider Abi Ceballos APRN Other Provider Maria C Martinez APRN Other Provider Rocío LAKE, Aura Other Provider Unavailable Marley Mendieta APRN Attending Provider Heriberto MARTELL, Jared Palacios Attending Provider [phone] Sylvester Jacob DO Primary Care Provider [phone] Sylvester Jacob DO Attending Provider Josh Sosa MD Admit Provider Unavailable Josh Sosa MD Other Provider Unavailable SamKaryn kenney DO Other Provider Unavailable Jayro Wilburn MD Other Provider Unav alfredo Parr MD, Rosalinda Benedict Other Provider UnavaYo Abrams MD Other Provider Unavailable Sterling Coats MD Other Provider Unavailable Maynor Conway MD Other Provider Unavailable Meño Saldana MD Other Provider Unavailable Tatiana Sibley DO Other Provider Unavailable Lake DO, Nathaniel T Other Provider Unavailable Gwen Burk CMA Attending Provider UnavailDanyelle Chery MD Attending Provider Sylvester Jacob DO Primary Care Provider Sylvester Jacob DO Attending Provider [phone] Josh Sosa Admitting Unavailable Josh Sosa Attending Unavailable Nidia, Sylvester Primary Care Unavailable Danyelle Mathews Consulting Unavailable Sylvester Jacob Primary Care Unavailable Zak Blanca Attending Unavailab lela Saldana Liza Consulting Unavailable Josh Sosa Admitting Unavailable Shana, Liza Consulting Unavailable Francis Butterfield Consulting Unavailable Bryce Hendrickson Consulting Unavailable Jayro Wilburn Consulting Unavail able Madan Manzanares Consulting Unavailable Allan Warren Consulting Unavailab Carol Ann Edmond Consulting Unavailable Lis Alcocer Consulting Unavailable Beata Parrammsusi Escamillaeb Consulting Unavailab Yo Monroe Consulting Unavailable Priti Mandujano Consulting Unavailable Sin Martinez Consulting Unavailable Danyelle Mathews Consulting Unavailable Kimmy Fall Consulting Unavailable Sherin Arellano Consulting Unavailable Hung Ryan Consulting Unavailable Zenobia Carrasco Consulting Unavailable Saman Marino Consulting Unavailable Marley Mendieta Consulting Unavailable Iglesia Garza Jr Consulting UnavailJared Allen Consulting Unavaila ble [facility] Care Unavailable Emory Cole II Attending UnavailEmory Best II Admitting Unavailabl e [facility] Primary Care Unavailable Devin Moreau Attending Unavailable Lizzeth Devin E Admitting Unavailable [facility] Care Unavailable Elifeanyi, Essam Attending Unavailable Elifeanyi, Essam Admitting Unavailable [facility] Care Unavailable Jared Louis Attending Unavaila Regina Nelson Consulting Unavailable Jared Louis Admitting Unavaila ble Theresa Velez Consulting Unavailable Magi Young Consulting Unavailable Blanca [...] Coats Consulting Unavailable Israel Lu Consulting Unavailable Gaeg Pena Consulting Unavailable Isaiah Mejia Consulting Unavailable Wallace Meeks Consulting Unavailable Yonas Hoyos Consulting Unavailable Julito Malhotra Consulting Unavailable Leonardo Sanchez Consulting Unavailable Zak Blanca Consulting Unavailab le Demarco, Joaquin Consulting Unavailable Maynor Conway Consulting Unavailable Dale Marcelo Consulting Unavailable Meño Saldana Consulting Unavailable Tatiana Sibley Consulting Unavailable Byron Dave Consulting Unavailable Xi Sosa Consulting Unavailable Zechariah Mccarthy Consulting Unavailable DaromarAmbika Consulting Unavailable Radhika Bueno Consulting Unavailable Tammi Giordano Consulting Unavailable Kaveh Koehler Consulting Unavailable Max Haji Consulting Unavailable Nathaniel Lake Consulting Unavailable Elizabeth Reece Consulting Unavailable Caesar Conway Consulting Unavailable Deborah Avina Consulting Unava daysiable Belem Mauro Consulting Unavailable Lisette Almaraz Consulting Unavailable Josh Sosa Consulting Unavailable Saman Duran Consulting Unavailable Servando [place] Consulting Unavailable Landon Whitfield Consulting Unavailable Abi Ceballos Consulting Unavailable Maria C Martinez Consulting Unavaila Aura Perez Consulting Unavailable Landon Whitfield Attending Unavailable Sylvester Jacob Primary Care Unavailable Sherin Arellano Consulting Unavailable Isaiah Mejia Admitting Unavailable Zenobia Carrasco Consulting Unavailable Saman Marino Consulting Unavailable Marley Mendieta Consulting Unavailable Iglesia Garza Jr Consulting UnavailJared Allen Consulting Unavaila Sylvester Marie DO Primary Care Provider Sylvester Jacob DO Primary Care Provider BRYCE HENDRICKSON Referring Unavailable SYLVESTER JACOB Primary Care Unavailable ALLEN ENCARNACION Attending Unavailable TAMY KHAN Attending Unavailable TAMY KHAN Attending Unavailable TAMY KHAN Referring Unavailable BRAN LINDA Attending Unavailable SYLVESTER JACOB Referring Unavailable DICK LEVIN Attending Unavailable CHUCK COPE Attending Unavailable SYLVESTER JACOB Referring Unavailable CHUCK COPE Attending Unavailable MARCE KHAN Attending Unavailable DICK LEVIN Referring Unavailable ALLEN ENCARNACION Attending Unavailable CARLOS MANUEL HARDING Attending Unavailab CARLOS MANUEL Sears Referring Unavailab SYLVESTER Pino Primary Care Unavailable NNAMDI BEE Attending Unavailable SYLVESTER JACOB Primary Care Unavailable BRYCE HENDRICKSON Attending Unavailable BRYCE HENDRICKSON Referring Unavailable SYLVESTER JACOB Primary Care Unavailable BRYCE HENDRICKSON Attending Unavailable BRYCE HENDRICKSON Referring Unavailable SYLVESTER JACOB Primary Care Unavailable Allergies Allergy ClassificationReported Allergen(s)Allergy TypeDate of OnsetReaction(s) FacilityHMG-CoA Reductase Inhibitors (statins) (1 source)atorvastatinDrug Kgnqhko09-35-6675BoqtsOsdbwwdvxGalion HospitalIodine (and Iodine containting drugs) (1 source)IodineDrug Vyynmve65-54-1552Nrrbkyh ReactionCleveland ClinicPenicillins (antibiotic) (3 sources)PenicillinDrug Jjprecn37-28-4439Vvxnbne Reaction, Comment:Penicillin, [facility] HospitalQuinolones (antibiotic) (1 source)levoFLOXacinDrug Odjuhnu23-17-6086Hwvxuii ReactionCleveland Clinic (20 sources)atorvastatin; Translations: [atorvastatin]Drug Qqwhwtf90-62-6246 [place] (20 sources)Penicillins; Translations: [Penicillins]Allergy to substance 42-49-0613WnmygQdtoevjqgGalion Hospital (20 sources)Penicillin GDrug Jtqscwb96-44-5309Dsaxmqb, Unknown ReactionCleveland Clinic (5 sources)atorvastatin; Translations: [Lipitor]Drug AllergyCleveland Clinic [facility] 600 DO Work Phone: (5 sources)Hmg-Coa Reductase Inhibitors (Statins); Translations: [Statins] Allergy to drug (finding)[facility] 600 DO Work Phone: (7 sources)atorvastatin; Translations: [ATORVASTATIN CALCIUM]Drug Allergy 87-65-4792HsrhzovOskpahjqq Clinic (20 sources)IodineDrug Phnrftx24-75-9229Wwjvhlb, Unknown ReactionCleveland Clinic (1 source)AmoxicillinDrug AllergyDoctors Hospital Repository (1 source)DextroamphetamineDrug AllergyDoctors Hospital Repository (20 sources)levoFLOXacinDrug AllergyUnknowBvents Other (20 sources)Penicillin VDrug Iywezri54-59-6566Seirtlp:PenicillinCleveland Clinic (1 source)patient allergy list reviewed by nurse or physiciaPropensity to adverse ghdechack56-79-9540Jqwehht:For Art's Sake MediaHampton Billeo Other (11 sources)HMG-CoA reductase inhibitor; Translations: [BVNOIVL-MOH-MZZ REDUCTASE INHIBITORS]Drug Qbztkrb55-50-3518MetaqTnsuchafaoSumma Health Akron Campus Work Phone: (20 sources)levoFLOXacin; Translations: [levofloxacin]Drug Eupjqyo59-13-0722 Unknown ReactionCleveland Clinic Medications Current Medications MedicationDrug Class(es)DatesSig (Normalized)Sig (Original)acetaminophen 500 mg oral tablet (20 sources)Start: 11-38-4478bewg 1 tablet by mouth every four hours as needed for painAcetaminophen 500 mg Tablet Active 500 MG PO Q4H as needed for Pain 0 November 30, 2024 12:00am Complies with drug therapyStart: 04-19-2023 End: 60-61-6377phlw 1 tablet by mouth every four hours as needed for pain Acetaminophen 500 mg Tablet Discontinued 500 MG PO Q4H as needed for Pain 0 April 19, 2023 1:00am November 14, 2024 5:57pmStart: 04-15-2023 End: 60-70-1328exff 2 tablets by mouth every four hours as needed for pain Acetaminophen (Tylenol) 325 mg Tablet Discontinued 650 MG PO Q4H as needed for Mild Pain 0 2022 1:00am April 19, 2023 3:08pmStart: 09-24-2021 End: 93-38-4109zinu 1 tablet by mouth every four hours as needed for pain Acetaminophen 500 mg Tablet Discontinued 500 MG PO Q4H as needed for Pain September 24, 2021 12:00am April 15, 2023 9:14am Take with tramadolStart: 03-33-2118aqvs 500 mg by mouth twice dailyAcetaminophen Active 500 MG PO Twice daily September 23, 2021 11:00pm Take with tramadolazithromycin 250 mg oral tablet (3 sources)Macrolide AntimicrobialStart: 43-02-5952Vewrculstfed 250 MG as directed Orally daily for 5 days May, Activecalcium carbonate 1500 mg oral tablet (20 sources)take 1 tablet by mouth in the morningcalcium carbonate (Calcium 600) 600 MG tablet Take 600 mg by mouth in the morning and 600 mg in theevening. Take with meals. Activecalcium carbonate 1500 mg / cholecalciferol 0.01 mg oral tablet (20 sources)Vitamin DStart: 42-85-7582cgiv 1 tablet by mouth twice dailyCalcium Carbonate-Vitamin D3 (Calcium 600 + D(3)) 600 mg-10 mcg (400 unit) Tablet Active 1 TAB PO Twice daily September 24, 2021 12:00am Complies with drug therapy cetirizine hydrochloride 10 mg oral tablet (20 sources)Histamine-1 Receptor AntagonistStart: 05-74-5196AZNOZMU RELIEF, CETIRIZINE, 10 mg tablet 02/28/2021 Activecholecalciferol 0.025 mg oral capsule (20 sources)Vitamin Dtake 1 capsule by mouth once dailycholecalciferol (Vitamin D-3) 25 MCG (1000 UT) capsule Take 1,000 Units by mouth Daily Activetake 1 capsule by mouth in the morningcholecalciferol (Vitamin D-3) 25 MCG (1000 UT) capsule Take 1,000 Units by mouth in the morning. ActiveCyclosporine (6 sources)Calcineurin Inhibitor ImmunosuppressantStart: 36-70-1035pibt 1 drop(s) into the eye(s) every twelve hoursCyclosporine 0.05 % Dropperette Active 1 DROPS EYE-BOTH Every 12 hours 0 November 30, 2024 12:00am Complies with drug therapyStart: 84-43-5402imxi 1 drop(s) into the eye(s) every twelve hoursStart: 05-29-2024 End: 14-54-8795bsxh 1 drop(s) into the eye(s) in the morningcycloSPORINE (Restasis) 0.05 % ophthalmic emulsion Indications: Keratoconjunctivitis sicca of both eyes not specified as Sjogren's Administer 1 drop into both eyes in the morning and 1 drop before bedtime. 180 mL 3 05/29/2024 08/27/2024 Active dapagliflozin 10 mg oral tablet (11 sources)Sodium-Glucose Cotransporter 2 InhibitorStart: 13-83-1439ehhg 1 tablet by mouth once dailyDapagliflozin Propanediol 10 mg tablet Active 10 MG PO Daily January 09, 2025 4:12pm Complieswith drug therapyStart: 11-14-2024 End: 48-10-8142ygyh 1 tablet by mouth once dailyDapagliflozin Propanediol 5 mg Tablet Discontinued 5 MG PO Daily November 14, 2024 12:00am January 09, 2025 4:14pmdocusate sodium 100 mg oral capsule (8 sources)Start: 94-96-1663zmdx 1 capsule by mouth twice daily as needed for constipationDocusate Sodium 100 mg Capsule Active 100 MG PO Twice daily as needed for Constipation 0 October 12:00am Complies with drug therapy Start: 11-30-2024 End: 31-79-6240Ckkalpap Sodium (Enemeez) 283 mg/5 mL Enema Discontinued 283 MG NH Daily as needed for ConstipationNovember 30, 2024 12:00am December 05, 2024 9:22amfluticasone propionate 0.05 mg/actuat metered dose nasal spray (20 sources)CorticosteroidStart: 01-09-2024 End: 05-36-0924uryn 2 spray(s) nasal route once daily as needed for congestion Fluticasone Propionate 50 mcg/actuation spray,suspension Active 0 .ROUTE .COMPLEX 48 October 0158:37am USE 2 SPRAYS IN EACH NOSTRIL ONCE A DAY NEEDED FOR NASAL CONGESTION Complies with drug therapyStart: 10-04-2020 End: 19-44-7670Kmlsgohxcfp Propionate 50 mcg/actuation spray,suspension Discontinued 2 SPRAY INTRANASAL Daily as needed for Nasal Congestion December 15, 2023 1:23pm January 09, 2024 8:38amStart: 63-66-1743ntehftzsqdl (FLONASE) 50 mcg/actuation nasal spray 2 Sprays once daily. 01/19/2016 Active fluticasone (Flonase) 50 mcg/actuation nasal spray As directed Active End: 72-70-7512ouhxhxzvlcp (Cutivate) 0.05 % cream Apply topically in [...] once daily. furosemide 20 mg oral tablet (15 sources)Loop DiureticStart: 42-01-3558wugn 1 tablet by mouth twice daily as needed for edemaFurosemide 20 mg tablet Active 20 MG PO Twice daily as needed for edema 60 January 15, 2025 12:00pm Complies with drug therapyStart: 11-30-2024 End: 80-47-4461fafo 1 tablet by mouth once dailyFurosemide 20 mg Tablet Discontinued 20 MG PO Daily at 0800 0 November 30, 2024 12:00am January 15, 2025 12:04pmStart: 11-14-2024 End: 16-84-7504pjfp 1 tablet by mouth once dailyFurosemide 40 mg Tablet Discontinued 40 MG PO Daily at 0800 0 November 14, 2024 12:00am November 30, 2024 10:32amStart: 55-30-5003gczm 1 tablet by mouth every twenty-four hoursFurosemide 20 MG 1 tablet Orally Once a day for 30 days Apr, Activegabapentin 100 mg oral capsule (20 sources)Anti-epileptic AgentStart: 85-59-2210sktl 2 capsules by mouth once dailyGabapentin 100 mg Capsule Active 200 MG PO Daily 0 November 14, 2024 12:00am Complies with drug therapyStart: 07-03-2024 End: 75-23-3971awqz 1 capsule by mouth four times dailyGabapentin 300 mg capsule Discontinued 300 MG PO Four times daily 120 September 29, 2024 11:59am November 14, 2024 3:26pmStart: 07-03-2024 End: 20-52-6708idwq 2 capsules by mouth twice dailyGabapentin 300 mg capsule Discontinued 600 MG PO Twice daily July 03, 2024 2:50pm July 0355:40pm Start: 06-22-2023 End: 16-27-8798ykmo 2 capsules by mouth three times dailyGabapentin 300 mg capsule Discontinued 600 MG PO Three times daily April 04, 2024 3:41pm July 03, 2024 2:56pmStart: 64-04-5829qbfj 600 mg by mouth once dailyGabapentin Active 600 MG PO every day at noon September 24, 2021 10:44amStart: 09-24-2021 End: 04-16-0842Gzvgngtcnn 300 mg capsule Discontinued MG September 24, 2021 12:00am September 24, 2021 10:46amStart: 09-24-2021 End: 72-72-1880zuwo 3 capsules by mouth twice dailyGabapentin 300 mg capsule Discontinued 900 MG PO BID@1400,2199September 24, 2021 12:00am April 3:55pmStart: 44-20-2248rnfg 900 mg by mouth twice dailyGabapentin Active 900 MG PO BID@1400,2199September 24, 2021 12:00amStart: 09-24-2021 End: 65-53-6467Abeodfpaix Discontinued MG September 24, 2021 12:00am September 24, 2021 10:46amStart: 88-52-1749ryru 600 mg by mouth twice dailyGabapentin Active 600 MG PO BID@1400,2199September 24, 2021 12:00amStart: 10-04-2020 End: 75-01-8590yayg 1 capsule by mouth once daily in the morningGabapentin 300 mg capsule Discontinued 300 MG PO Every morning October 04, 2020 12:00am April 6:36pmStart: 10-04-2020 End: 01-26-6639bxjy 1 tablet by mouth once daily at [...] oral tablet (2 sources)Quinolone AntimicrobialStart: 03-08-2024 End: 11-70-4121ecea 1 tablet by mouth once dailylevoFLOXacin (Levaquin) 500 MG tablet Indications: Chronic sinusitis, unspecified location Take 1 tablet (500 mg) by mouth Daily for 14 days 14 tablet 03/08/2024 03/22/2024 Activeloratadine 10 mg oral tablet (13 sources)take 1 tablet by mouth once dailyloratadine (Claritin) 10 mg tablet Take 1 tablet (10 mg) by mouth once daily. Activemelatonin 10 mg oral tablet (20 sources)Start: 23-38-8813hgxe 1 tablet by mouth at bedtime as needed for sleepMelatonin 10 mg Tablet Active 10 MG PO Bedtime as needed for Sleep March 16, 2022 1:00am Complies with drug ltiuhme30 hr metoprolol succinate 25 mg extended release oral tablet (20 sources)beta-Adrenergic BlockerStart: 72-02-6989dhhi 1 tablet by mouth once dailyMetoprolol Succinate 25 mg tablet extended release 24 hr Active 0 .ROUTE .COMPLEX January 15, 2025 7:35am TAKE 1 TABLET BY MOUTH EVERY DAY Complies with drug therapyStart: 11-30-2024 End: 14-95-7176lkio 1 tablet by mouth once dailyMetoprolol Succinate 25 mg Tablet Extended Release 24 Hr Discontinued 25 MG PO Daily 0 November 30, 2024 12:00am January 15, 2025 7:35amStart: 11-14-2024 End: 02-84-9906Qjzcuxpucw Succinate 25 mg Tablet Extended Release 24 Hr Discontinued 75 MG PO Daily 0 November 14, 2024 12:00am November 30, 2024 10:32am Start: 07-21-2024 End: 81-58-0207gati 1 tablet by mouth once dailyMetoprolol Succinate 25 mg tablet extended release 24 hr Discontinued 0 .ROUTE .COMPLEX July 21, 2024 4:35pm November 14, 2024 3:26pm TAKE 1 TABLET BY MOUTH EVERY DAYStart: 06-27-2024 End: 21-01-9485uzfl 1 tablet by mouth once dailyMetoprolol Tartrate 25 mg tablet Discontinued 25 MG PO Daily June 27, 2024 10:01pm July 21, 2024 4:35pmtake 1 tablet by mouth every twenty-four hoursmetoprolol succinate XL (Toprol-XL) 25 MG 24 hr tablet Take by mouth Do not crush or chew. Active montelukast 10 mg oral tablet (20 sources)Leukotriene Receptor AntagonistStart: 03-28-2024 End: 91-99-3981afsm 1 tablet by mouth at bedtimemontelukast (Singulair) 10 MG tablet Indications: Chronic frontal sinusitis Take 1 tablet (10 mg) by mouth at bedtime 90 tablet 3 03/28/2024 03/28/2025 ActiveNaproxen (6 sources)Nonsteroidal Anti-inflammatory Drug End: 75-50-6339AEAGBWSE SODIUM ORAL Take by mouth if needed. 0 03/02/2023 Discontinued (Other)Aleve TABS as needed Quantity: 0 Refills: 0 Ordered: 10-Feb-2022 DO Activenortriptyline 10 mg oral capsule (13 sources)Tricyclic AntidepressantStart: 10-23-2024 End: 01-42-1197wihp 1 capsule by mouth at bedtimenortriptyline (Pamelor) 10 MG capsule Indications: Bilateral carpal tunnel syndrome Take 1 capsule (10 mg) by mouth at bedtime 30 capsule 11 10/23/2024 10/23/2025 Activeomeprazole 40 mg delayed release oral capsule (20 sources)Proton Pump InhibitorStart: 65-79-0958jrrykugmup (PriLOSEC) [address] capsule 05/20/2024 ActiveStart: 02-24-2024 End: 15-83-5810Drfsvgituq 40 mg capsule,delayed release(DR/EC) Discontinued 0 .ROUTE .COMPLEX February 24, 2024 8:39am November 14, 2024 6:00pm TAKE 1 CAPSULE BY MOUTH ONCE A DAY ON EMPTY STOMACH FOLLOWED IN 30 MINUTES BY BREAKFAST FOR 90 DAYSStart: 11-24-2016 End: 46-68-3411whhr 1 capsule by mouth once dailyOmeprazole 20 [...] release oral tablet (5 sources)Proton Pump InhibitorStart: 31-58-4193ffuf 1 tablet by mouth once dailyPantoprazole 40 mg Tablet,Delayed Release (Dr/Ec) Active 40 MG PO Daily 0 November 14, 2024 12:00am Complies with drug therapypredniSONE 10 mg oral tablet (20 sources)Start: 09-28-2024 End: 13-88-2008izoohfCZCS (Deltasone) 10 MG tablet Indications: Osteoarthritis of midtarsal joint of left foot , Capsulitis of left foot , Pain in joint of left foot , Pain and swelling of toe of left foot , Difficulty walking 1 tablet twice daily x 7 days; followed by 1 tablet daily as directed until complete 21 tablet 09/28/2024 10/23/2024 Discontinued (Therapy completed)Start: 03-28-2024 End: 61-22-8599uowt 1 tablet by mouth in the morningpredniSONE (Deltasone) 20 MG tablet Indications: Chronic frontal sinusitis Take 1 tablet (20 mg) bymouth in the morning and 1 tablet (20 mg) before bedtime. Do all this for 6 days. 12 tablet 03/28/2024 04/03/2024 ActiveStart: 03-08-2024 End: 21-72-8216ifeu 1 tablet by mouth in the morningpredniSONE (Deltasone) 20 MG tablet Indications: Chronic sinusitis, unspecified location Take 1 tablet (20 mg) by mouth in the morning and 1 tablet (20 mg) before bedtime. Do all this for 6 days. 12 tablet 03/08/2024 03/14/2024 ActiveStart: 65-17-6092ydteriAPMX 5 MG 1 tablet 3 times a day for 3 days, 1 tablets 2 times a day for 3 days , 1 tablet 1 times a day for 3 days Orally as directed for 9 days Jan, Active Start: 07-69-9511ibukbdAYZJ 20 MG 1 tablet Orally twice daily w/ food x 3 days then qd w/ food x 3 days for 6 days Jan, Not-Taking/PRNStart: 04-01-2022 End: 26-13-0051Wqsfqxhzlq 10 mg tablets,dose pack Discontinued 1 dose pk PO per package directions April 01, 2022 1:00am March 26, 2023 2:38pm take 4 tabs for 3 days then take 3 tabs for 3 days then take 2 tabs for 3 days then take 1 tab for 3 daysStart: 04-01-2022 End: 33-73-9343Tanzqvjphk Discontinued 1 dose pk PO per package directions April 01, 2022 1:00am March 26, 2023 2:38pm take 4 tabs for 3 days then take 3 tabs for 3 days then take 2 tabs for 3 days then take 1 tab for 3 daysStart: 04-01-2022 End: 32-84-0845Fdfyakkszg Discontinued 1 dose pk PO per package directions April 01, 2022 12:00am 2022 1:38pm take 4 tabs for 3 days then take 3 tabs for 3 days then take 2 tabs for 3 days then take 1 tab for 3 daysStart: 98-62-2399Xdbrtycslw Active 1 dose pk PO per package [...] then take 1 tab for 3 daysStart: 17-11-6666Jastyukwga Active 1 dose pk PO per package directions October 09, 2021 12:22pm take 4 tabs for 3 days then take 3 tabs for 3 days then take 2 tabs for 3 days then take 1 tab for 3 days Start: 10-09-2021 End: 53-48-8812Umvsmlaztx 10 mg tablets,dose pack Discontinued 1 dose pk PO per package directions October 09, 2021 12:00am March 16, 2022 12:00pm take 4 tabs for 3 days then take 3 tabs for 3 days then take 2 tabs for 3 days then take 1 tab for 3 daysStart: 10-09-2021 End: 27-84-3872Xaygqtsrbo Discontinued 1 dose pk PO per package directions October 09, 2021 12:00am March 16, 2022 12:00pm take 4 tabs for 3 days then take 3 tabs for 3 days then take 2 tabs for 3 days then take 1 tab for 3 days Start: 10-09-2021 End: 98-72-1173Gxyahdiiuk Discontinued 1 dose pk PO per package directions October 08, 2021 11:00pm March 16, 2022 11:00am take 4 tabs for 3 days then take 3 tabs for 3 days then take 2 tabs for 3 days then take 1 tab for 3 days thiamine 100 mg oral tablet (10 sources)Start: 10-23-2024 End: 75-67-5282alqm 1 tablet by mouth once dailythiamine (Vitamin B-1) 100 MG tablet Indications: Bilateral carpal tunnel syndrome Take 1 tablet (100 mg) by mouth Daily 30 tablet 11 10/23/2024 10/23/2025 Activetolterodine tartrate 1 mg oral tablet (20 sources)Cholinergic Muscarinic AntagonistStart: 28-09-4881wqii 1 tablet by mouth twice dailyTolterodine 1 mg tablet Active 0 .ROUTE .COMPLEX 60 July 29, 2024 3:43pm TAKE 1 TABLET BY MOUTH TWICE A DAY Complies with drug therapyStart: 07-06-2024 End: 47-19-7602gimt 1 tablet by mouth twice dailyTolterodine 1 mg tablet Discontinued 1 MG PO Twice daily 60 July 06, 2024 1:00am July 29, 2024 3:43pmStart: 07-28-2023 End: 82-46-2784shoy 1 tablet by mouth twice dailyTolterodine 2 mg tablet Discontinued 2 MG PO Twice daily 60 July 28, 2023 10:14am September 07, 2023 7:32amStart: 07-16-2022 End: 06-75-7024zjpvreevptk (Detrol) 2 mg tablettraMADol hydrochloride 50 mg oral tablet (20 sources)Opioid AgonistStart: 31-33-0896kxde 1 tablet by mouth every eight hours as needed for painTramadol 50 mg tablet Active 50 MG PO Every 8 hours as needed for pain 90 December 07, 2024 12:00am Complies with drug therapyStart: 11-04-2021 End: 95-25-6864xatj 1 tablet by mouth twice dailyTramadol 50 mg tablet Discontinued 50 MG PO Twice daily March 16, 2022 1:00am April 01, 2022 11:36amStart: 03-18-2021 End: 12-57-7678plbw 1 tablet by mouth every six hoursTramadol 50 mg tablet Discontinued 50 MG PO Every 6 hours June 29, 2023 1:00am October 11, 2023 6:10pmStart: 10-04-2020 End: 05-71-9686yrjb 1 tablet by mouth twice dailyTramadol 50 mg tablet Discontinued 50 MG PO Twice daily October 04, 2020 12:00am October 09, 2021 12:22pm Comment on above:every 6 hours as needed.traZODone hydrochloride 50 mg oral tablet (20 sources)Serotonin Reuptake InhibitorStart: 51-96-2955kttf 0.5-1 tablets by mouth once daily at bedtimeTrazodone 50 mg tablet Active 0 .ROUTE .COMPLEX 90 December 24, 2024 6:14pm TAKE 1/2 - 1 TABLET BY MOUTH EVERYDAY AT BEDTIME Complies with drug therapyStart: 09-29-2024 End: 55-47-3778nhsp 2 tablets by mouth once daily at bedtimeTrazodone 50 mg tablet Discontinued 100 MG PO Daily at bedtime 180 90 September 29, 2024 12:03pm November 14, 2024 3:26pmStart: 06-22-2024 End: 30-50-1463tylp 0.5-1 tablets by mouth once daily at bedtimeTrazodone 50 mg tablet Discontinued 0 .ROUTE .COMPLEX 90 June 22, 2024 8:08am September 29, 2024 12:04pm TAKE 1/2 - 1 TABLET BY MOUTH EVERYDAY AT BEDTIMEStart: 06-05-2024 End: 07-35-7253rgmf 1 tablet by mouth at bedtimeTrazodone 100 mg Tablet Discontinued 100 MG PO Bedtime June 05, 2024 1:00am June 22, 2024 8:08amStart: 03-28-2024 End: 16-16-3225lybLVMhdi (Desyrel) 50 MG tablet 03/28/2024 ActiveStart: 12-31-2023 End: 27-22-2929txhx 0.5-1 tablets by mouth once daily at bedtimeTrazodone 50 mg tablet Discontinued 0 .ROUTE .COMPLEX 90 December 31, 2023 1:35pm April 07, 2024 6:45pm TAKE 1/2 - 1 TABLET BY MOUTH EVERYDAY AT BEDTIMEStart: 12-31-2023 End: 71-00-2815jcuv 0.5-1 tablets by mouth once daily at bedtime as needed Trazodone 50 mg tablet Discontinued 50 MG PO Daily at bedtime as needed December 31, 2023 12:00am December 31, 2023 1:35pm 1/2 to 1 tabletStart: 03-26-2023 End: 97-30-1630zeng 1 tablet by mouth once daily at bedtime as neededTrazodone 50 mg tablet Discontinued 50 MG PO Daily at bedtime as needed for sleeplessness March 26, 2023 1:00am April 19, 2023 3:08pm Completed/Discontinued Medications MedicationDrug Class(es)DatesSig (Normalized)Sig (Original)aluminum hydroxide 40 mg/ml / magnesium hydroxide 40 mg/ml / simethicone 4 mg/ml oral suspension (20 sources)Start: 04-15-2023 End: 56-76-0597wvqi 1 mL by mouth every four hours as needed for gastroesophageal reflux diseaseAlum-Mag Hydroxide-Simeth (Mag-Al Plus) 200-200-20 mg/5 mL Suspension Discontinued 30 ML PO Q4H as needed for Heartburn 0 April 15, 2023 1:00am April 19, 2023 3:08pmaspirin 81 mg delayed release oral tablet (20 sources)Platelet Aggregation Inhibitor, Nonsteroidal Anti-inflammatory Drug Start: 22-93-4714qxoi 1 tablet by mouth once dailyAspirin 81 mg Tablet,Delayed Release (Dr/Ec) Active 81 MG PO Daily April 09, 2023 1:00am On Hold: HOLD until hematoma resolves Complies with drug therapyAspir-Low Activebaclofen 20 mg oral tablet (20 sources)gamma-Aminobutyric Acid-ergic AgonistStart: 09-14-2023 End: 85-22-9349pyhs 1 tablet by mouth once daily at bedtimeBaclofen 20 mg tablet Discontinued 0 .ROUTE .COMPLEX 90 June 02, 2024 8:24am November 14, 2024 3: 26pm TAKE 1 TABLET BY MOUTH EVERYDAY AT BEDTIMEStart: 06-03-2020 End: 31-66-3630rkvq 1 tablet by mouth once daily at bedtimeBaclofen 20 mg tablet Discontinued 20 MG PO Daily at bedtime August 12, 2023 12:00am August 11 7:49pmComment on above:Take 1 tablet by mouth daily at bedtime.carvedilol 6.25 mg oral tablet (20 sources)alpha-Adrenergic Gonzalo, beta-Adrenergic BlockerStart: 11-02-2024 End: 01-08-4831mepr 1 tablet by mouth twice daily at mealtimeCarvedilol (Coreg) 6.25 mg tablet Discontinued 6.25 MG PO Twice daily November 02, 2024 12:00am November 14, 2024 3:26pm must administer with a meal/foodStart: 06-05-2024 End: 16-13-7465amhu 1 tablet by mouth twice daily at mealtimeCarvedilol 3.125 mg Tablet Discontinued 3.125 MG PO Twice daily with meals 60 June 05, 2024 1:00am June 29, 2024 11:07amStart: 06-16-2023 End: 75-72-0577ykhl 1 tablet by mouth twice dailyCarvedilol 6.25 mg tablet Discontinued 0 .ROUTE .COMPLEX 180 June 02, 2024 8:24am June 05, 2024 2:27pm TAKE 1 TABLET BY MOUTH TWICE A DAYStart: 06-18-2016 End: 09-89-5361ntcc 1 tablet by mouth twice dailyCarvedilol 6.25 mg tablet Discontinued 6.25 MG PO Twice daily October 04, 2020 12:00am June 2:53pmComment on above:Take 6.25 mg by mouth twice daily with meals.cephalexin 500 mg oral capsule (20 sources)Cephalosporin AntibacterialStart: 10-09-2021 End: 94-07-2147ctpx 1 capsule by mouth three times dailyCephalexin 500 mg capsule Discontinued 500 MG PO Three times daily October 09, 2021 12:00am March 16, 2022 11:56amcyclobenzaprine hydrochloride 10 mg oral tablet (20 sources)Muscle RelaxantStart: 04-15-2023 End: 03-71-6030ngcj 1 tablet by mouth every eight hours as needed for muscle spasmsCyclobenzaprine 10 mg tablet Discontinued 10 MG PO Every 8 hours as needed for Spasms 30 April 19, 2023 3:07pm September 07, 2023 7:30amStart: 04-01-2022 End: 36-68-0229qwoe 1 tablet by mouth three times daily as needed for muscle spasmsCyclobenzaprine 10 mg tablet Discontinued 10 MG PO Three times daily as needed for back spasms April 01, 2022 1:00am March 26, 2023 2:36pm Start: 10-09-2021 End: 66-36-4364yagz 1 tablet by mouth three times daily as needed for muscle spasmsCyclobenzaprine 10 mg tablet Discontinued 10 MG PO Three times daily as needed for back spasms October 09, 2021 12:00am March 16, 2022 11:58am docusate sodium 50 mg / sennosides, long term 8.6 mg oral tablet (20 sources)Start: 04-15-2023 End: 25-22-7379zpxj 2 tablets by mouth twice dailySennosides-Docusate Sodium 8.6-50 mg Tablet Discontinued 2 TAB PO Twice daily April 3:07pm April 07, 2024 6:39pmdoxycycline monohydrate 100 mg oral capsule (20 sources)Tetracycline-class DrugStart: 03-28-2024 End: 82-43-8800jyao 1 capsule by mouth twice dailyDoxycycline Monohydrate 100 mg capsule Discontinued 100 MG PO Twice daily April 04, 2024 1:00amMay 12, 2024 8:01pmStart: 11-01-2023 End: 52-64-8900wdaf 1 tablet by mouth twice dailyDoxycycline Hyclate 100 mg tablet Discontinued 100 MG PO Twice daily 19 02November 01, 2023 12:00am April 04, 2024 3:26pmenalapril maleate 5 mg oral tablet (20 sources)Angiotensin Converting Enzyme InhibitorStart: 11-14-2024 End: 33-29-5764cjjr 1 tablet by mouth twice dailyEnalapril Maleate (Vasotec) 5 mg Tablet Discontinued 5 MG PO Twice daily November 14, 2024 12:00am January 09, 2025 4:14pm On Hold: HOLD given low BPs. May need to discontinue completely. F/u withPCPStart: 03-02-2023 End: 61-50-4040xxwf 1 tablet by mouth twice dailyEnalapril Maleate 2.5 mg tablet Discontinued 2.5 MG PO Twice daily March 26, 2023 1:00am 2024 2:49pm On Hold: Resume on 06/12/24.ferrous sulfate 324 mg delayed release oral tablet (4 sources)Start: 11-30-2024 End: 50-98-5464vwfo 1 tablet by mouth once dailyFerrous Sulfate 324 mg (65 mg iron) Tablet,Delayed Release (Dr/Ec) Discontinued 324 MG PO Daily 0 November 30, 2024 12:00am January 11, 2025 4:19pmfluconazole 200 mg oral tablet (5 sources)Azole AntifungalStart: 11-14-2024 End: 06-76-6003tipx 1 tablet by mouth once dailyFluconazole 200 mg tablet Discontinued 200 MG PO Daily November 14, 2024 12:00am November 30, 2024 10:32am hydroCHLOROthiazide 25 mg oral tablet (20 sources)Thiazide DiureticStart: 04-17-2020 End: 46-29-5258ffxa 1 tablet by mouth once dailyHydrochlorothiazide 25 mg tablet Discontinued 25 MG PO Daily October 04, 2020 12:00am April 19, 2023 3:08pm End: 55-38-3659udrg 1 capsule by mouth once dailyhydroCHLOROthiazide (Microzide) 12.5 mg capsule Take 1 capsule (12.5 mg) by mouth once daily. 0 03/02/2023 Discontinued (Therapy completed)Comment on above:Take 25 mg by mouth once daily. hydrocortisone 25 mg/ml topical lotion (4 sources)CorticosteroidStart: 11-30-2024 End: 57-00-8428Waprkqkelzlzit 2.5 % Lotion Discontinued 1 APPLIC TOPICAL Four times daily as needed for itching 0 November 30, 2024 12:00am January 11, 2025 4:19pmiv contrast (will be provided with radiology test) (3 sources)Start: 05-09-2020 End: 19-95-3504jr contrast (will be provided with radiology test) [...] 0 05/09/2020 06/22/2023 Discontinued (Discontinued by Patient)Start: 84-32-7953tu contrast (will be provided with radiology test) [...] mg/mg topical ointment (4 sources)Start: 11-30-2024 End: 15-90-3279Buom A And D-White Pet-Lanolin Ointment Discontinued 1 APPLIC TOPICAL Twice daily 0 November 302:00am January 11, 2025 4:21pm latanoprost 0.05 mg/ml ophthalmic solution (20 sources)Prostaglandin AnalogStart: 10-04-2020 End: 71-47-7640bicu 1 drop(s) into the eye(s) once dailyLatanoprost 0.005 % drops Discontinued 1 DROPS EYE-BOTH Daily October 04, 2020 12:00am March 16, 2022 11:59amStart: 10-04-2020 End: 29-42-0312uypl 1 drop(s) into the eye(s) once dailyLatanoprost 0.005 % drops Discontinued 1 DROPS EYE-BOTH Daily October 04, 2020 12:00am March 16, 2022 11:59amStart: 10-04-2020 End: 45-31-4299fizk 1 drop(s) into the eye(s) once dailyLatanoprost Discontinued 1 DROPS EYE-BOTH Daily October 04, 2020 12:00am March 16, 2022 11:59amStart: 11-18-2019 End: 57-47-9701vzjs 1 drop(s) into the eye(s) once dailylatanoprost (XALATAN) 0.005 % ophthalmic solution INSTILL 1 DROP INTO BOTH EYES EVERY DAY DIRECTED 0 11/18/2019 06/23/2023 Discontinued (Discontinued by Patient) End: 83-17-3823tdgo 1 drop(s) into the eye(s) at bedtimelatanoprost [...] (20 sources)Angiotensin Converting Enzyme InhibitorStart: 07-03-2024 End: 28-79-3086lqci 1 tablet by mouth once dailyLisinopril 2.5 mg tablet Discontinued 2.5 MG PO Daily 90 90 August 21, 2024 9:08am November 1453:26pm End: 00-26-8313cntbalhwee 5 MG tablet Take by mouth Daily 10/23/2024 Discontinued (Therapy completed)LISINOPRIL ORAL Take by mouth. Activemagnesium hydroxide 80 mg/ml oral suspension (20 sources)Start: 04-15-2023 End: 17-02-9395iqxe 1 mL by mouth at bedtime as needed for constipationMagnesium Hydroxide (Milk Of Magnesia) 400 mg/5 mL Suspension Discontinued 30 ML PO Bedtime as needed for Constipation 0 April 15, 2023 1:00am April 19, 2023 3:08pmStart: 04-15-2023 End: 77-85-3802wlsy 1 mL by mouth at bedtime as needed for constipationMagnesium Hydroxide (Milk Of Magnesia) 400 mg/5 mL Suspension Discontinued 30 ML PO Bedtime as needed for Constipation 0 April 15, 2023 1:00am April 19, 2023 3:08pmStart: 04-15-2023 End: 18-18-3231yhzw 1 mL by mouth at bedtime as needed for constipationMagnesium Hydroxide (Milk Of Magnesia) 400 mg/5 mL Suspension Discontinued 30 ML PO Bedtime as needed for Constipation 0 April 15, 2023 12:00am April 19, 2023 2:08pmStart: 04-15-2023 End: 90-35-2126lygb 1 mL by mouth at bedtimeMagnesium Hydroxide (Milk Of Magnesia) 400 mg/5 mL Suspension Discontinued 30 ML PO Bedtime 0 April 15, 2023 1:00am April 19, 2023 3:08pmStart: 04-15-2023 End: 83-55-9773calf 1 mL by mouth at bedtimeMagnesium Hydroxide (Milk Of Magnesia) 400 mg/5 mL Suspension Discontinued 30 ML PO Bedtime 0 April 15, 2023 12:00am April 19, 2023 2:08pmmagnesium oxide 400 mg oral tablet (5 sources)Start: 11-14-2024 End: 87-64-9358wica 1 tablet by mouth once dailyMagnesium Oxide 400 mg (241.3 mg magnesium) Tablet Discontinued 400 MG PO Daily 0 November 14, 2024 12:00am January 11, 2025 4:19pmmethylPREDNISolone 4 mg oral tablet (15 sources)CorticosteroidStart: 06-29-2024 End: 65-80-6855hiqn 1 tablet by mouth onceMethylprednisolone (Medrol (Jeremy)) 4 mg tablets,dose pack Discontinued 0 PO per package directions June 29, 2024 1:00am July 24, 2024 11:16am PO PER PKG DIR for 6 days End: 73-38-9164ihoz 1 tablet by mouth in the morningmethylPREDNISolone (Medrol) 4 MG tablet Take 4 mg by mouth in the morning. 03/08/2024 Discontinued (Therapy completed)metOLazone 2.5 mg oral tablet (20 sources)Thiazide-like DiureticStart: 03-28-2024 End: 86-32-4532tgxg 1 tablet by mouth once dailyMetolazone 2.5 mg tablet Discontinued 2.5 MG PO Daily April 04, 2024 1:00am July 03, 2024 2:51pm On Hold: Resume on 06/12/24.24 hr mirabegron 25 mg extended release oral tablet (10 sources)beta3-Adrenergic AgonistStart: 07-04-2024 End: 81-34-6495zoms 1 tablet by mouth once dailyMirabegron (Myrbetriq) 25 mg tablet extended release 24 hr Discontinued 25 MG PO Daily July 04, 2024 1:00am July 06, 2024 12:58pm24 hr oxybutynin chloride 15 mg extended release oral tablet (20 sources)Cholinergic Muscarinic AntagonistStart: 03-16-2022 End: 45-50-5500vbvh 1 tablet by mouth once dailyOxybutynin Chloride 15 mg tablet extended release 24hr Discontinued 15 MG PO Daily March 16, 2022 1:00am March 26, 2023 2:38pmoxyCODONE hydrochloride 5 mg oral tablet (20 sources)Opioid AgonistStart: 04-15-2023 End: 24-86-4337upkk 1 tablet by mouth every six hours as needed for pain Oxycodone 5 mg tablet Discontinued 5 MG PO Every 6 hours as needed for Pain (Scale Score 7-10) 20 5Dece2022September 07, 2023 7:31amStart: 04-15-2023 End: 18-04-3137ivni 2 tablets by mouth every six hours as needed for pain Oxycodone 5 mg tablet Discontinued 10 MG PO Every 6 hours as needed for Pain Scale 7-10 April 15, 2023 5:33pm April 19, 2023 3:08pmStart: 04-15-2023 End: 12-84-4931llhh 10 mg by mouth every six hoursOxycodone Discontinued 10 MG PO Every 6 hours April 15, 2023 5:33pm April 19, 2023 3:08pmStart: 04-01-2022 End: 33-51-3475cbfd 5-10 mg by mouth every six hours as needed for painOxycodone 5 mg tablet Discontinued 5 - 10 MG PO Q6H as needed for Pain 40 April 01, 2022 March 26, 2023 2:38pmStart: 10-09-2021 End: 01-56-3300peiz 5-10 mg by mouth every six hours as needed for painOxycodone 5 mg Tablet Discontinued 5 - 10 MG PO Q6H as needed for Pain 40 October 09, 20212021 12:00pmpsyllium 3400 mg powder for oral suspension (4 sources)Start: 11-30-2024 End: 63-97-0798Bkroqcoc Husk (Metamucil Fiber (Aspartame)) 3.4 gram Powder In Packet Discontinued 1 PACKET PO Daily November 30, 2024 12:00am January 11, 2025 4:20pmsulfamethoxazole 800 mg / trimethoprim 160 mg oral tablet (20 sources)Dihydrofolate Reductase Inhibitor Antibacterial, Sulfonamide AntimicrobialStart: 36-24-4289xbfu 1 tablet by mouth every twelve hoursBactrim DS 800-160 MG 1 tablet Orally Twice a day for 5 days May, Not-Taking/PRN Start: 04-01-2022 End: 71-08-8690oeij 1 tablet by mouth every twelve hoursSulfamethoxazole- Trimethoprim (Bactrim Ds) 800-160 mg tablet Discontinued 1 TAB PO Q12H 2021 1:00am March 26, 2023 2:39pmtorsemide 20 mg oral tablet (20 sources)Loop DiureticStart: 07-03-2024 End: 81-73-2231ehnp 1 tablet by mouth every other dayTorsemide 20 mg tablet Discontinued 20 MG PO .QOD July 03, 2024 2:51pm September 18, 2024 12:49pmStart: 02-24-2024 End: 03-30-8933bgmn 1 tablet by mouth once dailyTorsemide 10 mg tablet Discontinued 10 MG PO Daily April 07, 2024 1:00am May 12, 2024 3:28pm On Hold: Resume on 04/16/24. Please hold until seen by your PCP/cardiology. Start: 03-02-2023 End: 04-59-2472irps 1 tablet by mouth once dailyTorsemide 20 [...] [Impaired mobility and activities of daily living]Onset: 238532-27-5375WafqjjtzNllbunm disorders (8 sources)Anxiety state; Translations: [Generalized anxiety disorder]Onset: 943266-47-2438LvqcbmvSfmxsf of breast (20 sources)Malignant neoplasm of female breast; Translations: [Malignant neoplasm of unspecified site of left female breast]Onset: 94-64-3669Cvckgxz Cataract (20 sources)After-cataract of bilateral eyes; Translations: [Other secondary cataract, bilateral]Onset: 345641-07-9564XyyfuzyClqdepd kidney disease (20 sources)Chronic kidney disease; Translations: [Chronic kidney disease, unspecified]Onset: 721874-44-0262ZuarkciZtvcdzz kidney disease (5 sources)Chronic kidney disease; Translations: [Chronic kidney disease, stage 3b]Onset: 30-39-3843Ewixrrsppz disorders (20 sources)Left bundle branch block; Translations: [Other left bundle branch block]Onset: 620145-67-7128RmtjfrmJrrwerjsav heart failure; nonhypertensive (20 sources)Chronic diastolic heart failure; Translations: [Chronic diastolic (congestive) heart failure]Onset: 667988-57-2575QvbycfbTarfdbz on above: Echo: LVEF 25-30%, normal RV size/function - 10/2024Deficiency and other anemia (20 sources)Anemia, unspecified; Translations: [Anemia, unspecified]Onset: 041500-95-2691EgewkndaTdqclsvhd of lipid metabolism (20 sources)Hypercholesterolemia; Translations: [Pure hypercholesterolemia, unspecified]Onset: 052884-42-6892BvwijwgV Codes: Adverse effects of medical drugs (2 sources)Adverse effect of antineoplastic and immunosuppressive drugs, initial encounter; Translations: [ADVRS EFF ANTINEOPL IMMUNOSUP INIT]Onset: 02-09-2022 EpisodicEsophageal disorders (20 sources)Gastroesophageal reflux disease; Translations: [Gastro-esophageal reflux disease without esophagitis]Onset: 297197-22-7959IbhkryrOkdhcresk hypertension (20 sources)Essential (primary) hypertension; Translations: [Essential hypertension]Onset: 904585-39-5301FbxrmbaXimteakif hypertension (2 sources)Essential hypertensionOnset: 10-75-7859Eelrqjsuctrdrc ulcer (except hemorrhage) (1 source)Peptic ulcer without hemorrhage, without perforation AND without obstruction; Translations: [Pepticulcer, unspecified site, unspecified as acute or chronic, without mention of hemorrhage, perforation, or obstruction]Chronic Genitourinary symptoms and ill-defined conditions (5 sources)Dysuria; Translations: [Dysuria]EpisodicGlaucoma (20 sources)Primary open angle glaucoma; Translations: [Primary open-angle glaucoma, bilateral, mild stage]Onset: 936763-58-9404BcjmcmmZgyysufx; including migraine (20 sources)Chronic tension-type headache; Translations: [Chronic tension-type headache, intractable]ChronicHeadache; including migraine (20 sources)Headache; Translations: [Headache, unspecified]Onset: 05-04-2014 08-19-1109UoxltiytXagem valve disorders (20 sources)Mitral valve regurgitation; Translations: [Mitral valve disorders] Onset: 024772-71-6473LyxaxoiUnznapuqozhg with complications and secondary hypertension (20 sources)Chronic kidney disease due to hypertension; Translations: [Hypertensive chronic kidney disease withstage 1 through stage 4 chronic kidney disease, or unspecified chronic kidney disease]Onset: 84-10-4848Mehqbhr Immunizations and screening for infectious disease (6 sources)Patient encounter status; Translations: [Other specified vaccination] Resolved: 37-42-7135HozwiicmIjhsquqdhnoz; infection of eye (except that caused by tuberculosis or sexually transmitteddisease) (20 sources)Keratoconjunctivitis sicca; Translations: [Keratoconjunctivitis sicca, not specified as Sjogren's, bilateral]Onset: 993790-33-4286Uawhzrv Malignant neoplasm without specification of site (20 sources)Malignant neoplastic disease; Translations: [Other malignant neoplasm without specification of site]Onset: hronic Menopausal disorders (1 source)Primary ovarian failure; Translations: [Other primary ovarian failure] Onset: 05-05-0901DbzlnrsLnqieenowpvfc mental health disorders (20 sources)Primary insomnia; Translations: [Primary insomnia]ChronicMood disorders (20 sources)Mild depression; Translations: [Mild depression]Onset: 01-31-2014 96-39-3096RnppbsxKtenesd (17 sources)Onychomycosis due to dermatophyte ;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 observation (narrative)[facility] TRANSTHORACIC ECHO (TTE) LIMITEDon 38-31-0863UZNBTUYPBTBBB ECHO (TTE) LIMITED [address], [address] [address] TRANSTHORACIC ECHOCARDIOGRAM REPORT Patient Name: RENUKA Dey ONIEL Reading Physician: [id number] Bryce Hendrickson MD, [facility] Study Date: 02/19/2025 Ordering Provider: [id number] BRYCE HENDRICKSON MRN/PID: [id number] Fellow: Nurse: Date of /Age: 8 1950 / 74 years Breeding Manager: Светлана Mantilla RDCS, T Gender Assigned at F Additional Staff: : Height: 154.94 cm Admit Date: Weight: 67.13 kg Admission Status: Outpatient BSA / BMI: 1.66 m2 / 27.96 Department Location: [facility] Heart kg/m2 [place] Blood Pressure: 116 /76 mmHg Study Type: TRANSTHORACIC ECHO (TTE) LIMITED Diagnosis/ICD: Nonrheumatic mitral (valve) insufficiency-I34.0; Other ill defined heart diseases-I51.89 Indication: Abnormal EKG-LBBB, HTN, Sepsis with Multiorgan Failure-10/2024, Overweight, CKD-Stage III CPT Codes: Echo Limited-00448 Study Detail: The following Echo studies were [...] (1.8-2.4cm) AORTA: Asc Ao Diam 2.89 cm [id number] Bryce Hendrickson MD, FACC Electronically signed on 02/19/2025 at [...] function. 5. Moderate to severe mitral valve regurgitation.NormalBucyrus Community HospitalUS Heart Transthoracicon 52-64-5263BT vol index A/L39.3 ml/b3RtqwrmizdfMount St. [facility] Work Phone: [phone] A4C EF50.9UnMount St. Mary Hospital Work Phone: [phone] Biplane EF62 %[facility] Work Phone: [phone] EF43 %[facility] Work Phone: [phone] Hospital Work Phone: [phone] diam2.[address] [facility] Work Phone: [phone] E/A ratio0.84UnMount St. Mary Hospital Work Phone: CONCLUSIONS: 1. Left ventricular ejection fraction is mildly decreased by visual estimate at 40-45%. 2. Spectral Doppler shows a Grade I (impaired relaxation pattern) of left ventricular diastolic filling with normal left atrial filling pressure. 3. Septal motion suggest conduction abnormalities. 4. There is normal right ventricular global systolic function. 5. Moderate to severe mitral valve regurgitation.SYNGO [facility] Heart [place] [address] [facility], [address], [place] [address] TRANSTHORACIC ECHOCARDIOGRAM REPORT Patient Name: RENUKA Dey CLAUS Reading Physician: [id number] Bryce Hendrickson MD, [facility] Study Date: 02/19/2025 Ordering Provider: [id number] BRYCE HENDRICKSON MRN/PID: [id number] Fellow: Nurse: Date of /Age: 8 1950 / 74 years Breeding Manager: Светлана Mantilla RDCS, RVT Gender Assigned at F Additional Staff: : Height: 154.94 cm Admit Date: Weight: 67.13 kg Admission Status: Outpatient BSA / BMI: 1.66 m2 / 27.96 Department Location: [facility] Heart kg/m2 [place] Blood Pressure: 116 /76 mmHg Study Type: TRANSTHORACIC ECHO (TTE) LIMITED Diagnosis/ICD: Nonrheumatic mitral (valve) insufficiency-I34.0; Other ill defined heart diseases-I51.89 Indication: Abnormal EKG-LBBB, HTN, Sepsis with Multiorgan Failure-10/2024, Overweight, CKD-Stage III CPT Codes: Echo Limited-62149 Study Detail: The following Echo studies were [...] content not included)...Bryce Celis MD - 02/19/[address], [address] [place] [address] TRANSTHORACIC ECHOCARDIOGRAM REPORT Patient Name: RENUKA Rodriguez Physician: [id number] Bryce Hendrickson MD, [facility] Study Date: 02/19/2025 Ordering Provider: [id number] BRYCE HENDRICKSON MRN/PID: [id number] Fellow: Nurse: Date of /Age: 8 1950 / 74 years Breeding Manager: Светлана Mantilla RDCS, T Gender Assigned at F Additional Staff: : Height: 154.94 cm Admit Date: Weight: 67.13 kg Admission Status: Outpatient BSA / BMI: 1.66 m2 / 27.96 Department Location: [facility] kg/m2 [place] Blood Pressure: 116 /76 mmHg Study Type: TRANSTHORACIC ECHO (TTE) LIMITED Diagnosis/ICD: Nonrheumatic mitral (valve) insufficiency-I34.0; Other ill defined heart diseases-I51.89 Indication: Abnormal EKG-LBBB, HTN, Sepsis with Multiorgan Failure-10/2024, Overweight, CKD-Stage III CPT Codes: Echo Limited-28267 Study Detail: The following Echo studies were [...] (1.8-2.4cm) AORTA: Asc Ao Diam 2.89 cm [id number] [facility]ricks[facility] MD, [facility] Electronically signed on 02/19/2025 at 4:37:04 PM [...] 5. Moderate to severe mitral valve regurgitation. [facility] Work Phone: [facility] Work Phone: XR Shoulder - right 2 Viewson 76-93-1761Zcwkcov Result: Right Shoulder AP and Scap Y [...] right shoulder with degenerative changes at AC jointNOUniversity of Missouri Health Care HealthcareXR Shoulder - right 2 Viewson 63-79-2485Pgqebcbmj Study observation (narrative)[facility] HospitalBasic Metabolic Panelon 17-12-9692TEK/1.73 sq M.predicted MDRD (S/P/Bld) [Vol rate/Area]46.279 mL/min/{1.73_m2}NormalThe [facility] Physician GroupComment on above:Performed By: #### JOSE CBCNO ####[facility] [place], [place] [address]JOAIqmqyyp [Mass/volume] in Serum or PlasmaOrdered By: Danyelle Mathews on 79-97-0319Sdahudn [Mass/Vol]10.4 mg/dLHigh8.6-10.3FMcKitrick HospitalComment on above:Result Comment: PERFORMED BY:[place] [address] [address] [place] [phone] MEDICAL JACKELYN VÁZQUEZ M.D.Performed By: #### JOSE CBCNO ####[facility] [place] Micaelacritical access hospitalkathleen [place] [address]XIKPmszxc dioxide, total [Moles/volume] in Serum or PlasmaOrdered By: Danyelle Mathews on 49-63-9154EG1 [Moles/Vol]28.9 mmol/RYviucb11.0-31.0Cleveland ClinicComment on above:Performed By: #### JOSE, CBCNO ####[facility] [place] Micaelacritical access hospitalkathleen [place] [address]XMIVfsxqfcv [Moles/volume] in Serum or Plasma Ordered By: Danyelle Mathews on 29-31-0336Nwrikmvx [Moles/Vol]101 mmol/IGbpnwz18-763 Cleveland ClinicComment on above:Performed By: #### JOSE, CBCNO ####[facility] [place], [place] [address]ERX Creatinine [Mass/volume] in Serum or PlasmaOrdered By: Danyelle Mathews on 59-23-1530Xsskfihrqd [Mass/Vol]1.22 mg/dLHigh0.60-1.20Cleveland ClinicComment on above:Performed By: #### JOSE, CBCNO ####[place] [address] [place], [place] [address]QHUMzdduphhgii distribution width [Ratio] by Automated countOrdered By: Danyelle Mathews on 14-76-2502Nwablpdahjg distribution width (RBC) [Ratio]15.8 %High11.9-15.3FMcKitrick HospitalComment on above:Performed By: #### JOSE, CBCNO ####[place] [address] [place], [place] [address]GJHYngcwimgzlci [#/volume] in Blood by Automated countOrdered By: Danyelle Mathews on 65-39-5427WWW (Bld) [#/Vol] 3.97 10*6/uLNormal3.60-5.00Cleveland ClinicComment on above: Performed By: #### JOSE, CBCNO ####[place] [address] [place], [place] [address]QHEQfblbimsbx filtration rate [Volume Rate/Area] in Serum, Plasma or Blood by CreatinineOrdered By: Danyelle Mathews on 01-11-2025 Glomerular filtration rate [Volume Rate/Area] in Serum, Plasma or Blood by Qatdnkhwud80.279 mL/MinCleveland ClinicGlucose [Mass/volume] in Serum or PlasmaOrdered By: Danyelle Mathews on 91-78-6527Ckyoxuj [Mass/Vol]86 mg/dL Ptppdh26-405VbqylottlCleveland ClinicComment on above:ADA recommended reference rangeRandom Glucose Reference [...] recommended reference rangePerformed By: #### BMP, CBCNO ####[place] [address] [place], [place] [address]XCUKfqecsnrfh [Volume Fraction] of Blood by Automated countOrdered By: Danyelle Mathews on 45-77-0421Nsjidnceqy (Bld) [Volume fraction]35.5 %Normal 34.0-46.4FMcKitrick HospitalComment on above:Performed By: #### JOSE, CBCNO ####[address] [address] USAHemoglobin [Mass/volume] in BloodOrdered By: Danyelle Mathews on 01-11-2025 Hemoglobin (Bld) [Mass/Vol]11.7 g/dLLow11.8-15.4FMcKitrick HospitalComment on above:Performed By: #### JOSE, CBCNO ####[address] [address]VMOEjazosum CBC Without Diffon 87-69-0460Uxoj Corpuscular HGB Conc32.9 g/xRLkvvfl14.0-35.0The [facility] Physician GroupComment on above:Performed By: #### BMP, CBCNO ####[address] [address]PDOGsqxt Blood Count7.9 [CFU]/mLNormal3.8-11.6The [facility] Hospital Physician GroupComment on above:Performed By: #### BMP, CBCNO ####[address] [address]UQUXdpltjuslh [#/volume] corrected for nucleated erythrocytes in Blood by Automated counOrdered By: Danyelle Mathews on 39-53-5020WPT corrected for nucl RBC Auto (Bld) [#/Vol]7.9 10*3/uL3.8-11.6FMcKitrick HospitalMCH [Entitic mass] by Automated countOrdered By: Malachielder Mathews on 65-19-9020ARK (RBC) [Entitic mass]29.4 bgBpazwu49.7-34.3FMcKitrick HospitalComment on above:Performed By: #### JOSE, CBCNO ####[place] [address] [place], [place] [address]WSSZEGM Auto (RBC) [Mass/Vol]Ordered By: Malachielder Mathews on 91-56-6092ZLSB (RBC) [Mass/Vol]32.9 g/dL32.0-35.0Cleveland ClinicMCV [Entitic volume] by Automated countOrdered By: Danyelle Reid on 43-17-0358LGX (RBC) [Entitic vol]89.4 uMEogqmz58-911WcvdqugwmCleveland ClinicComment on above:Performed By: #### JOSE, CBCNO ####[place] [address] [place], [place] [address]YAJOx Panel InformationOrdered By: Danyelle Mathews on 32-59-1933Rntyuhxd Creatinine Clearance (ChemN/[facility] TroyPlatelet mean volume [Entitic volume] in Blood by Automated countOrdered By: Malachielder Mathews on 87-10-6607Xnxnokjm mean volume (Bld) [Entitic vol]8.6 fLNormal6.3-10.7FMcKitrick HospitalComment on above:Result Comment: PERFORMED BY:[place] [address] [address] [place], [place] [phone] MEDICAL JACKELYN VÁZQUEZ M.D.Performed By: #### JOSE, CBCNO ####[place] [address] [place], [place] [address]GNHTbuwmavzk [#/volume] in Blood by Automated count Ordered By: Danyelle Mathews on 36-89-4236Pnduqasmv (Bld) [#/Vol]336 10*3/uLNormal 150-450Cleveland ClinicComment on above:Performed By: #### BMP, CBCNO ####[place] [address] [place], [place] [address]KAH Potassium [Moles/volume] in Serum or PlasmaOrdered By: Danyelle Reid on 78-63-3656Rrmsrgzig [Moles/Vol]4.8 mmol/LNormal3.5-5.1FMcKitrick HospitalComment on above:Performed By: #### BMP, CBCNO ####[place] [address] Fieldschristine Hinojosacritical access hospitalkathleenM[place], [place] [address]XZQAjfrs or plasma anion gap determinationOrdered By: Danyelle Reid on 83-74-2244Svuvb gap [Moles/Vol]12.9 mmol/LNormal6.0-15.0Cleveland ClinicComment on above:Performed By: #### JOSE, CBCNO ####[place] [address] [facility] CenterjuanM[place], [place] [address]FBDEbwfyx [Moles/volume] in Serum or PlasmaOrdered By: Malachielder Mathews on 79-18-8987Aocnup [Moles/Vol]138 mmol/GTrllzz357-322CyploqifqCleveland ClinicComment on above:Performed By: #### BMP, CBCNO ####[address] StreetjuanM[place]TON, [place] [address]LUQHpht nitrogen [Mass/volume] in Serum or PlasmaOrdered By: Danyelle Arringtonifeanyi on 08-62-7318Ewbi nitrogen [Mass/Vol]27 mg/dLHigh7-25Cleveland ClinicComment on above:Performed By: #### BMP, CBCNO ####[address] Micaelacritical access hospitalkathleenM[place], [place] [address]ZYRIokwa Metabolic Panelon 91-89-4589Ksqye gap [Moles/Vol]13.5 mmol/LNormal 6.0-15.0The [facility] Physician GroupComment on above:Performed By: #### BMP ####[place] [address] [place] [address] USACalcium [Mass/Vol]8.1 mg/dLLow8.6-10.3The [facility] Hospital Physician GroupComment on above: Performed By: #### BMP ####[place] [address] [place]elacritical [place] [address] USAChloride [Moles/Vol]103 mmol/JOsjsff65-648Ezn [facility] Physician [facility] HospitalComment on above:Performed By: #### BMP ####[address] [address] USACO2 [Moles/Vol]26.8 mmol/ZYwdczn24.0-31.0The [facility] Physician GroupComment on above:Performed By: #### BMP ####[address] [address] USACreatinine [Mass/Vol]0.73 mg/dLNormal0.60-1.20The [facility] Physician [facility] Comment on above:Performed By: #### BMP ####[address] [address] USACreatinine Clr Calc Ovxqmekx18.02NoMission Family Health Center Physician [facility] Memorial HospitalComment on above:Result Comment: PERFORMED BY:[place] [address] [address] ABHISHEKGaloRadhaHUI, [place] [phone] MEDICAL DIRECTORCARLOS VÁZQUEZ M.D.Performed By: #### BMP ####[address] [address] USAGFR/1.73 sq M.predicted MDRD (S/P/Bld) [Vol rate/Area]mL/min/{1.73_m2}NormalThe [facility] Physician [facility] HospitalComment on above:Performed By: #### BMP ####[address] [address] USAGlucose [Mass/Vol]82 mg/dL Godvze55-465Vbj [facility] Physician [facility] HospitalComment on above:Result Comment: Random Glucose Reference Range is dependent on time and content of last meal. Glucose of more than 200 mg/dL in a nonstressed, ambulatory subject supports the diagnosis of Diabetes Mellitus. ADA recommended reference rangePerformed By: #### BMP ####[address] [address] USAPotassium [Moles/Vol]4.3 mmol/LNormal3.5-5.1The [facility] Physician [facility] Comment on above:Performed By: #### BMP ####[address] [address] USASodium [Moles/Vol]139 mmol/ILujbpj441-891Htp [facility] Physician GroupComment on above:Performed By: #### BMP ####[address] [address] USAUrea nitrogen [Mass/Vol]10 mg/dLNormal7-25The [facility] Physician GroupComment on above: Performed By: #### BMP ####[address] [address] USABasic Metabolic Panelon 06-01-5819Pqjfo gap [Moles/Vol]14.6 mmol/LNormal6.0-15.0The [facility] Physician GroupComment on above:Order Comment: pt in PTPerformed By: #### BMP ####[address] [address] USACalcium [Mass/Vol]8.3 mg/dLLow 8.6-10.3The [facility] Physician GroupComment on above:Order Comment: pt in PT Performed By: #### BMP ####[address] [address] USAChloride [Moles/Vol]101 mmol/AFxtaml51-582Xqs [facility] Physician GroupComment on above:Order Comment: pt in PTPerformed By: #### BMP ####[address] [address] USACO2 [Moles/Vol]25.7 mmol/YPuarcq47.0-31.0The [facility] Physician GroupComment on above:Order Comment: pt in PTPerformed By: #### BMP ####[address] [address] USACreatinine [Mass/Vol]0.68 mg/dLNormal0.60-1.20The [facility] Physician GroupComment on above:Order Comment: pt in PTPerformed By: #### BMP ####[address] [address] USACreatinine Clr Calc Ofubpeyu11.02NormalThe [facility] Physician GroupComment on above:Order Comment: pt in PTResult Comment: PERFORMED BY:[place] [address] [place] [place], [place] [phone] MEDICAL DIRECTORCARLOS VÁZQUEZ M.D.Performed By: #### BMP ####[address] [address] USAGFR/1.73 sq M.predicted MDRD (S/P/Bld) [Vol rate/Area]mL/min/{1.73_m2}Normal The [facility] Physician GroupComment on above:Order Comment: pt in PTPerformed By: #### BMP ####[address] [address] USAGlucose [Mass/Vol]112 mg/eOGway80-426Cae [facility] Comment on above:Order Comment: pt in PTResult Comment: Random Glucose Reference Range is dependent on time and content of last meal. Glucose of more than 200 mg/dL in a nonstressed, ambulatory subject supports the diagnosis of Diabetes Mellitus. ADA recommended reference rangePerformed By: #### BMP ####[address] [address] USAPotassium [Moles/Vol] 3.3 mmol/LLow3.5-5.1The [facility] Physician GroupComment on above:Order Comment: pt in PTPerformed By: #### BMP ####[address] [address] USASodium [Moles/Vol]138 mmol/IEutghy071-541Xgk [facility] Physician GroupComment on above:Order Comment: pt in PTPerformed By: #### BMP ####[address] [address] USAUrea nitrogen [Mass/Vol]11 mg/dLNormal7-25The [facility]ician Group Comment on above:Order Comment: pt in PTPerformed By: #### BMP ####[address] [address] USABasic Metabolic Panel on 06-79-6973Rxyge gap [Moles/Vol]Not performedNormal6.0-15.0The [facility] Physician GroupComment on above:Performed By: #### BMP ####[address] [address] USACalcium [Mass/Vol]8.0 mg/dLLow 8.6-10.3The [facility] Physician GroupComment on above:Performed By: #### BMP ####[address] [address] [place] Chloride [Moles/Vol]105 mmol/CKctjyn83-433Jyx [facility] Physician [facility] HospitalComment on above:Performed By: #### BMP ####[address] [address] USACO2 [Moles/Vol]25.3 mmol/XTlbdrf82.0-31.0The [facility] Physician GroupComment on above:Performed By: #### BMP ####[address] [address] USACreatinine [Mass/Vol] 0.66 mg/dLNormal0.60-1.20The [facility] Physician [facility] HospitalComment on above:Performed By: #### BMP ####[address] [address] USACreatinine Clr Calc Nppqxlch24.52NormalThCascade Medical Center Physician Group Comment on above:Result Comment: PERFORMED BY:[place] [address] [address] [place], [place] [phone] MEDICAL DIRECTORCARLOS VÁZQUEZ M.D.Performed By: #### BMP ####[address] [address] USAGFR/1.73 sq M.predicted MDRD (S/P/Bld) [Vol rate/Area]mL/min/{1.73_m2}NormalThe [facility]ician [facility] Comment on above:Performed By: #### BMP ####[address] [address] USAGlucose [Mass/Vol]67 mg/fDAgc71-733Hht [facility] Physician [facility] HospitalComment on above:Result Comment: Random Glucose Reference Range is dependent on time and content of last meal. Glucose of more than 200 mg/dL in a nonstressed, ambulatory subject supports the diagnosis of Diabetes Mellitus. ADA recommended reference rangePerformed By: #### BMP ####[address] [address] USA PotassiumNormal3.5-5.1The [facility] Physician GroupComment on above:Result Comment: Specimen hemolyzed, redraw requestedPerformed By: #### BMP ####[address] [address] USASodium Lngaso868-058Gwz [facility] Physician GroupComment on above:Result Comment: Specimen hemolyzed, redraw requestedPerformed By: #### BMP ####[address] [address] USAUrea nitrogen [Mass/Vol]10 mg/dLNormal7-[facility] Physician GroupComment on above: Performed By: #### BMP ####[address] [address] USACT femur RT wo conon 99-99-6931CY femur RT wo con NormalThe [facility] Physician [facility] HospitalRedraw Potassiumon 13-09-4617Kxgehpppb [Moles/Vol]3.4 mmol/LLow3.5-5.1The [facility] Physician GroupComment on above: Order Comment: PREVIOUS SPECIMEN HEMOLYZEDResult Comment: PERFORMED BY:[place] [address] [address] ABHISHEKGaloRadhaHUI, [place] [phone] MEDICAL JACKELYN VÁZQUEZ M.D.Performed By: #### REDRAW K, REDRAW NA ####[address] [address] USARedraw Sodiumon 48-08-1020Sobtmd [Moles/Vol]141 mmol/BElybjp720-717Cge [facility] Physician GroupComment on above:Order Comment: PREVIOUS SPECIMEN HEMOLYZED Performed By: #### REDRAW K, REDRAW NA ####[address] [address] USAUS arterial duplex LE RTon 26-21-3374US arterial duplex LE RTNormalThe [facility] Physician [facility] HospitalBasic Metabolic Panelon 13-28-5853Yxrww gap [Moles/Vol]11.9 mmol/LNormal6.0-15.0The [facility] Physician GroupComment on above:Performed By: #### BMP, CBC ####[address] [address] USACalcium [Mass/Vol]8.4 mg/dLLow 8.6-10.3The [facility] Physician GroupComment on above:Performed By: #### BMP, CBC ####[address] [address] [place] Chloride [Moles/Vol]104 mmol/ISjdrmu04-780Fuv [facility] Physician GroupComment on above:Performed By: #### BMP, CBC ####[place] [address] USACO2 [Moles/Vol]28.2 mmol/NYnigor32.0-31.0The [facility] Physician GroupComment on above:Performed By: #### BMP, CBC ####[place] [address] [place] Creatinine [Mass/Vol]0.68 mg/dLNormal0.60-1.20The [facility]ician [facility] Comment on above:Performed By: #### BMP, CBC ####[place] [address] USACreatinine Clr Calc Yndvnmbw17.12 NormalSanta Rosa Medical Center Physician GroupComment on above:Result Comment: PERFORMED BY:[address] [place], [place] [phone] MEDICAL JACKELYN VÁZQUEZ M.D.Performed By: #### BMP, CBC ####[address] [address] [place] GFR/1.73 sq M.predicted MDRD (S/P/Bld) [Vol rate/Area]mL/min/{1.73_m2}NormalSanta Rosa Medical Center Physician GroupComment on above:Performed By: #### BMP, CBC ####[address] [address] USAGlucose [Mass/Vol]84 mg/iJPnproo30-630Zal [facility] Physician GroupComment on above: Result Comment: Random Glucose Reference Range is dependent on time and content of last meal. Glucose of more than 200 mg/dL in a nonstressed, ambulatory subject supports the diagnosis of Diabetes Mellitus. ADA recommended reference rangePerformed By: #### BMP, CBC ####[place] [address] [place] [address] USAPotassium [Moles/Vol]3.1 mmol/LLow3.5-5.1The [facility] Physician GroupComment on above:Performed By: #### BMP, CBC ####[place] [address] USASodium [Moles/Vol]141 mmol/EZlxatc960-281Omn [facility] Physician GroupComment on above: Performed By: #### BMP, CBC ####[address] [address] USAUrea nitrogen [Mass/Vol]9 mg/dLNormal7-25The [facility] Physician GroupComment on above:Performed By: #### BMP, CBC ####[address] [address] [facility] Complete Blood Count Auto Diffon 52-42-4529Meyaljwgw (Bld) [#/Vol]0.1 10*3/uL Normal0.0-0.2The Hospital Of The University Of PennsylvaniaComment on above:Result Comment: PERFORMED BY:[address] [place], [place] [phone] MEDICAL DIRECTORCARLOS VÁZQUEZ M.D.Performed By: #### BMP, CBC ####[address] [address] USABasophils/100 WBC (Bld)1.3 %Normal.The [facility] Physician GroupComment on above:Performed By: #### BMP, CBC ####[address] [address] USAEosinophils (Bld) [#/Vol]0.2 10*3/uLNormal 0.0-0.45The [facility] Physician GroupComment on above:Performed By: #### BMP, CBC ####[address] [address] [place] Eosinophils/100 WBC (Bld)2.7 %Normal.The [facility] Physician GroupComment on above:Performed By: #### BMP, CBC ####[address] [address] USAErythrocyte distribution width (RBC) [Ratio]20.7 % High11.9-15.3The [facility] Physician GroupComment on above:Performed By: #### BMP, CBC ####[place] [address] USAHematocrit (Bld) [Volume fraction]26.9 %Low34.0-46.4The [facility] Physician GroupComment on above:Performed By: #### BMP, CBC ####[place] [address] USAHemoglobin (Bld) [Mass/Vol]9.1 g/dLLow 11.8-15.4The [facility] Physician GroupComment on above:Performed By: #### BMP, CBC ####[place] [address] [place] Lymphocytes (Bld) [#/Vol]1.1 10*3/uLNormal1.00-4.8The [facility] Comment on above:Performed By: #### BMP, CBC ####[place] [address] USALymphocytes/100 WBC (Bld)13.6 %Normal. The [facility] Physician GroupComment on above:Performed By: #### BMP, CBC ####[address] [address] USAMCH (RBC) [Entitic mass]29.9 ywJmbpnv75.7-34.3The [facility] Physician GroupComment on above:Performed By: #### BMP, CBC ####[address] [address] USAMCV (RBC) [Entitic vol]88.6 dHNfzquz59-259Lqe [facility] Physician GroupComment on above:Performed By: #### BMP, CBC ####[place] [address] USAMean Corpuscular HGB Conc33.7 g/wUYtnxis46.0-35.0The [facility] Physician GroupComment on above:Performed By: #### BMP, CBC ####[place] [address] USAMonocytes (Bld) [#/Vol]1.0 10*3/uLHigh0.0-0.8 The [facility] Physician GroupComment on above:Performed By: #### BMP, CBC ####[place] [address] [place] Monocytes/100 WBC (Bld)12.2 %Normal.The [facility] Physician GroupComment on above:Performed By: #### BMP, CBC ####[place] [place] [address] USANeutrophils (Bld) [#/Vol]5.9 10*3/uLNormal1.8-7.7The [facility] Physician GroupComment on above:Performed By: #### BMP, CBC ####[place] [address] [place] Neutrophils/100 WBC (Bld)70.2 %Normal.The [facility] Physician GroupComment on above:Performed By: #### BMP, CBC ####[place] [address] USANRBC%0.1 /100{WBC}Normal0-0.5The [facility] Physician GroupComment on above:Performed By: #### BMP, CBC ####[place] [address] USAPlatelet mean volume (Bld) [Entitic vol]7.4 fLNormal6.3-10.7The [facility] Physician GroupComment on above: Performed By: #### BMP, CBC ####[place] [address] USAPlatelets (Bld) [#/Vol]640 10*3/fSStos729-149Oer [facility] Physician GroupComment on above:Performed By: #### BMP, CBC ####[place] [address] USARBC (Bld) [#/Vol]3.04 10*6/uLLow3.60-5.00The [facility] Physician GroupComment on above:Performed By: #### BMP, CBC ####[place] [address] USAWBC (Bld) [#/Vol]8.5 10*3/uLNormal3.8-11.6The [facility] Physician GroupComment on above:Performed By: #### BMP, CBC ####[place] [address] USAWhite Blood Count8.5 [CFU]/mLNormal3.8-11.6The [facility] Physician GroupComment on above:Performed By: #### BMP, CBC ####[place] [id number] USAECG 12 lead ECGon 16-11-8307IDJ 12 lead ECGNormalThe Hospital Of The University Of PennsylvaniaBasic Metabolic Panelon 03-18-2742Mpabc gap [Moles/Vol]15.7 mmol/LHigh6.0-15.0The [facility] Physician GroupComment on above: Performed By: #### DIFF CBC, BMP ####[place] [address] USACalcium [Mass/Vol]7.9 mg/dLLow8.6-10.3The [facility] Physician GroupComment on above:Performed By: #### DIFF CBC, BMP ####[place] [address] USAChloride [Moles/Vol] 101 mmol/LWccrge80-629Int [facility] Physician GroupComment on above:Performed By: #### DIFF CBC, BMP ####[place] [address] USACO2 [Moles/Vol]24.2 mmol/TKxmiph27.0-31.0The [facility] Physician GroupComment on above:Performed By: #### DIFF CBC, BMP ####[place] [address] [place] [address] [place] Creatinine [Mass/Vol]0.72 mg/dLNormal0.60-1.20The [facility] Comment on above:Performed By: #### DIFF CBC, BMP ####[place] [place] [address] USACreatinine Clr Calc Drqpjqvg03.43 NormalThe [facility] Physician GroupComment on above:Result Comment: PERFORMED BY:[address] [place]haH[place], [place] [phone] MEDICAL DIRECTORCARLOS VÁZQUEZ M.D.Performed By: #### DIFF CBC, BMP ####[address] [address] USAGFR/1.73 sq M.predicted MDRD (S/P/Bld) [Vol rate/Area]mL/min/{1.73_m2}Normal The [facility] Physician GroupComment on above:Performed By: #### DIFF CBC, BMP ####[address] [address] USAGlucose [Mass/Vol]70 mg/jUZzkcpy47-669Ztp [facility] Physician GroupComment on above: Result Comment: Random Glucose Reference Range is dependent on time and content of last meal. Glucose of more than 200 mg/dL in a nonstressed, ambulatory subject supports the diagnosis of Diabetes Mellitus. ADA recommended reference rangePerformed By: #### DIFF CBC, BMP ####[address] [place] [address] USAPotassium [Moles/Vol]3.9 mmol/LNormal3.5-5.1 The [facility] Physician GroupComment on above:Performed By: #### DIFF CBC, BMP ####[address] [address] USASodium [Moles/Vol]137 mmol/KGtgsiw544-837Gge [facility] Physician GroupComment on above: Performed By: #### DIFF CBC, BMP ####[facility] [address] [place] [address] USAUrea nitrogen [Mass/Vol]11 mg/dLNormal7-e [facility] Physician GroupComment on above:Performed By: #### DIFF CBC, BMP ####[facility] [place] [address] USADiff and CBCon 63-51-4785Vjfbijgoqabv Ql (Bld)MarkedNoMission Family Health Center Physician GroupComment on above:Performed By: #### DIFF CBC, BMP ####[facility] [address] [place] [address] USABand form neutrophils/100 WBC (Bld)3 %Normal0-5The [facility] Physician [facility] HospitalComment on above:Performed By: #### DIFF CBC, BMP ####[place] [address] [place] [address] USAEosinophils/100 WBC (Bld)1 %Normal1-3The [facility] Physician [facility] Comment on above:Performed By: #### DIFF CBC, BMP ####[place] [address] [place] [address] USAErythrocyte distribution width (RBC) [Ratio]20.3 %High11.9-15.3The [facility] Physician [facility] HospitalComment on above: Performed By: #### DIFF CBC, BMP ####[place] [address] [place] [address] USAHematocrit (Bld) [Volume fraction]25.7 %Low34.0-46.4 The [facility] Physician GroupComment on above:Performed By: #### DIFF CBC, BMP ####[place] [address] [place] [address] [place] Hemoglobin (Bld) [Mass/Vol]8.6 g/dLLow11.8-15.4The [facility] Physician [facility] Comment on above:Performed By: #### DIFF CBC, BMP ####[place] [address] [place] [address] USAHypochromasiaSlightNoMission Family Health Center Physician GroupComment on above:Performed By: #### DIFF CBC, BMP ####[address] [address] [place] Lymphocytes/100 WBC (Bld)10 %Pdj92-27Tje [facility] Physician GroupComment on above:Performed By: #### DIFF CBC, BMP ####[address] [address] [facility] HOSPITALMCH (RBC) [Entitic mass]29.7 jyLgtrzh78.7-34.3 The [facility] Physician GroupComment on above:Performed By: #### DIFF CBC, BMP ####[address] [address] [facility] HOSPITALMCV (RBC) [Entitic vol]88.7 hHNmecfl92-732Hpg [facility] Physician GroupComment on above:Performed By: #### DIFF CBC, BMP ####[address] [address] USAMean Corpuscular HGB Conc33.4 g/dLNormal 32.0-35.0The [facility] Physician GroupComment on above:Performed By: #### DIFF CBC, BMP ####[address] [address] USAMetamyelocytes2 %High0-0The [facility] Physician GroupComment on above: Performed By: #### DIFF CBC, BMP ####[address] [address] USAMonocytes/100 WBC (Bld)9 %Normal2-11The [facility] Physician GroupComment on above:Performed By: #### DIFF CBC, BMP ####[address] [address] USAMyelocytes3 %High0-0 The [facility] Physician GroupComment on above:Performed By: #### DIFF CBC, BMP ####[address] [address] [place] Platelet EstimateIncreasedNormalNormalThe [facility] Physician GroupComment on above:Performed By: #### DIFF CBC, BMP ####[address] [address] USAPlatelet mean volume (Bld) [Entitic vol]7.2 fL Normal6.3-10.7The [facility] Physician GroupComment on above:Performed By: #### DIFF CBC, BMP ####[address] [address] USAPlatelet MorphologyNormalNormalNormalThe [facility] Comment on above:Result Comment: PERFORMED BY:[address] [place], [place] [phone] MEDICAL DIRECTORCARLOS VÁZQUEZ M.D.Performed By: #### DIFF CBC, BMP ####[address] [address] USAPlatelets (Bld) [#/Vol]545 10*3/aTPysp866-169Hhd [facility] Physician GroupComment on above: Performed By: #### DIFF CBC, BMP ####[address] [address] USARBC (Bld) [#/Vol]2.90 10*6/uLLow3.60-5.00The [facility] Physician GroupComment on above:Performed By: #### DIFF CBC, BMP ####[address] [address] [place] Segmented neutrophils/100 WBC (Bld)73 %Tdlr51-66Qgo [facility] Comment on above:Performed By: #### DIFF CBC, BMP ####[address] [address] USAWBC (Bld) [#/Vol]8.5 10*3/uLNormal 3.8-11.6The [facility] Physician GroupComment on above:Performed By: #### DIFF CBC, BMP ####[address] [address] USAWhite Blood Count8.5 [CFU]/mLNormal3.8-11.6The [facility] Comment on above:Performed By: #### DIFF CBC, BMP ####[address] [address] USABasic Metabolic Panelon 11-21-2024 Anion gap [Moles/Vol]12.3 mmol/LNormal6.0-15.0The [facility] Physician [facility] Comment on above:Performed By: #### BMP ####[address] [address] USACalcium [Mass/Vol]7.9 mg/dLLow8.6-10.3The [facility] Physician GroupComment on above:Performed By: #### BMP ####[address] [address] USAChloride [Moles/Vol] 104 mmol/FCtwlvq90-190Fhu [facility] Physician GroupComment on above:Performed By: #### BMP ####[address] [address] USACO2 [Moles/Vol]28.4 mmol/VVrzmes57.0-31.0The [facility] Comment on above:Performed By: #### BMP ####[address] [address] USACreatinine [Mass/Vol]0.83 mg/dLNormal0.60-1.20 The [facility] Physician GroupComment on above:Performed By: #### BMP ####[address] [address] [place] Creatinine Clr Calc Ahsqaenr35.69NormHCA [facility] Hospital Physician GroupComment on above:Result Comment: PERFORMED BY:[address] [place], [place] [phone] MEDICAL JACKELYN VÁZQUEZ M.D.Performed By: #### BMP ####[address] [address] USAGFR/1.73 sq M.predicted MDRD (S/P/Bld) [Vol rate/Area]mL/min/{1.73_m2}NormalThe [facility] Physician GroupComment on above: Performed By: #### BMP ####[address] [address] USAGlucose [Mass/Vol]83 mg/cLXttlyn25-665Ahz [facility] Physician GroupComment on above:Result Comment: Random Glucose Reference Range is dependent on time and content of last meal. Glucose of more than 200 mg/dL in a nonstressed, ambulatory subject supports the diagnosis of Diabetes Mellitus. ADA recommended reference rangePerformed By: #### BMP ####[place] [address] USAPotassium [Moles/Vol]3.7 mmol/LNormal3.5-5.1The [facility] Physician GroupComment on above:Performed By: #### BMP ####[place] [address] USASodium [Moles/Vol]141 mmol/OOaptrs381-196Ilr [facility] Physician GroupComment on above:Performed By: #### BMP ####[place] [address] USAUrea nitrogen [Mass/Vol]16 mg/dLNormal7-25The [facility] Physician GroupComment on above:Performed By: #### BMP ####[place] [address] USABasic Metabolic Panel on 97-90-5831Jtzaf gap [Moles/Vol]14.1 mmol/LNormal6.0-15.0The [facility] Physician GroupComment on above:Performed By: #### BMP, CBC ####[place] [address] USACalcium [Mass/Vol]8.0 mg/dLLow8.6-10.3The [facility] Physician GroupComment on above:Performed By: #### BMP, CBC ####[place] [address] USAChloride [Moles/Vol]103 mmol/ESkhdtd11-602Cfn [facility] Comment on above:Performed By: #### BMP, CBC ####[place] [address] USACO2 [Moles/Vol]27.0 mmol/LNormal 21.0-31.0The [facility] Physician GroupComment on above:Performed By: #### BMP, CBC ####[place] [address] [facility] Creatinine [Mass/Vol]0.97 mg/dLNormal0.60-1.20The [facility] Comment on above:Performed By: #### BMP, CBC ####[place] [address] USACreatinine Clr Calc Glzfyoxz09.12 NormalThe [facility] Physician GroupComment on above:Result Comment: PERFORMED BY:[address] [place], [place] [phone] MEDICAL JACKELYN VÁZQUEZ M.D.Performed By: #### BMP, CBC ####[place] [address] [place] GFR/1.73 sq M.predicted MDRD (S/P/Bld) [Vol rate/Area]mL/min/{1.73_m2}NormalThe [facility] Physician GroupComment on above:Performed By: #### BMP, CBC ####[place] [address] USAGlucose [Mass/Vol]76 mg/hLKaufqx48-142Lig [facility] Physician GroupComment on above: Result Comment: Random Glucose Reference Range is dependent on time and content of last meal. Glucose of more than 200 mg/dL in a nonstressed, ambulatory subject supports the diagnosis of Diabetes Mellitus. ADA recommended reference rangePerformed By: #### BMP, CBC ####[place] [address] USAPotassium [Moles/Vol]3.1 mmol/LLow3.5-5.1The [facility] Physician GroupComment on above:Performed By: #### BMP, CBC ####[address] [address] USASodium [Moles/Vol]141 mmol/JQcbmoa501-758Ibj [facility] Physician GroupComment on above: Performed By: #### BMP, CBC ####[place] [address] USAUrea nitrogen [Mass/Vol]18 mg/dLNormal7-25The [facility] Physician GroupComment on above:Performed By: #### BMP, CBC ####[address] [address] [facility] Complete Blood Count Auto Diffon 74-81-7638Dzwfjfhdq (Bld) [#/Vol]0.1 10*3/uL Normal0.0-0.2The [facility] Physician GroupComment on above:Result Comment: PERFORMED BY:[address] [place]IL[place], [place] [phone] MEDICAL DIRECTORCARLOS VÁZQUEZ M.D.Performed By: #### BMP, CBC ####[address] [address] USABasophils/100 WBC (Bld)1.3 %Normal.The [facility] Physician GroupComment on above:Performed By: #### BMP, CBC ####[address] [address] USAEosinophils (Bld) [#/Vol]0.3 10*3/uLNormal 0.0-0.45The [facility] Physician GroupComment on above:Performed By: #### BMP, CBC ####[place] [address] [place] Eosinophils/100 WBC (Bld)5.2 %Normal.The [facility] Physician GroupComment on above:Performed By: #### BMP, CBC ####[place] [address] USAErythrocyte distribution width (RBC) [Ratio]18.5 % High11.9-15.3The [facility] Physician GroupComment on above:Performed By: #### BMP, CBC ####[address] [address] USAHematocrit (Bld) [Volume fraction]24.4 %Low34.0-46.4The [facility] Physician GroupComment on above:Performed By: #### BMP, CBC ####[place] [address] USAHemoglobin (Bld) [Mass/Vol]8.3 g/dLLow 11.8-15.4The [facility] Physician GroupComment on above:Performed By: #### BMP, CBC ####[place] [address] [place] Lymphocytes (Bld) [#/Vol]1.3 10*3/uLNormal1.00-4.8The [facility] Comment on above:Performed By: #### BMP, CBC ####[place] [address] USALymphocytes/100 WBC (Bld)19.4 %Normal. The [facility] Physician GroupComment on above:Performed By: #### BMP, CBC ####[address]H (RBC) [Entitic mass]29.7 utHfdagl22.7-34.3The [facility] Physician GroupComment on above:Performed By: #### BMP, CBC ####[address] (RBC) [Entitic vol]87.3 wYNimatp86-022Qwe [facility] Physician GroupComment on above:Performed By: #### BMP, CBC ####[place] [address] USAMean Corpuscular HGB Conc34.0 g/vWPhwipi48.0-35.0The [facility] Physician GroupComment on above:Performed By: #### BMP, CBC ####[place] [address] USAMonocytes (Bld) [#/Vol]0.6 10*3/uLNormal 0.0-0.8The [facility] Physician GroupComment on above:Performed By: #### BMP, CBC ####[place] [address] [place] Monocytes/100 WBC (Bld)9.4 %Normal.The [facility] Physician GroupComment on above:Performed By: #### BMP, CBC ####[place] [address] USANeutrophils (Bld) [#/Vol]4.2 10*3/uLNormal1.8-7.7The [facility] Physician GroupComment on above:Performed By: #### BMP, CBC ####[place] [address] [place] Neutrophils/100 WBC (Bld)64.7 %Normal.The [facility] Physician GroupComment on above:Performed By: #### BMP, CBC ####[place] [address] USANRBC%0.0 /100{WBC}Normal0-0.5The [facility] Physician GroupComment on above:Performed By: #### BMP, CBC ####[place] [address] USAPlatelet mean volume (Bld) [Entitic vol]7.5 fLNormal6.3-10.7The [facility] Physician GroupComment on above: Performed By: #### BMP, CBC ####[place] [address] USAPlatelets (Bld) [#/Vol]563 10*3/vSKbls545-372Lkh [facility] Physician GroupComment on above:Performed By: #### BMP, CBC ####[place] [address] USARBC (Bld) [#/Vol]2.79 10*6/uLLow3.60-5.00The [facility] Physician GroupComment on above:Performed By: #### BMP, CBC ####[place] [address] USAWBC (Bld) [#/Vol]6.5 10*3/uLNormal3.8-11.6The [facility] Physician GroupComment on above:Performed By: #### BMP, CBC ####[place] [address] USAWhite Blood Count6.5 [CFU]/mLNormal3.8-11.6The [facility] Physician GroupComment on above:Performed By: #### BMP, CBC ####[address] [address] USABasic Metabolic Panelon 93-93-5769Zytax gap [Moles/Vol]16.4 mmol/LHigh6.0-15.0The [facility] Physician GroupComment on above: Performed By: #### BMP ####[address] [address] USACalcium [Mass/Vol]8.3 mg/dLLow8.6-10.3The [facility] Physician GroupComment on above:Performed By: #### BMP ####[address] [address] USAChloride [Moles/Vol]102 mmol/L Hlbniy28-260Bau [facility] Physician GroupComment on above:Performed By: #### BMP ####[address] [address] USACO2 [Moles/Vol]26.2 mmol/AZjlgte01.0-31.0The [facility] Physician GroupComment on above:Performed By: #### BMP ####[address] [address] USACreatinine [Mass/Vol]1.09 mg/dLNormal0.60-1.20The [facility] Physician GroupComment on above:Performed By: #### BMP ####[address] [address] USACreatinine Clr Calc Gdxejyli35.93NormalThe [facility] Physician GroupComment on above:Result Comment: PERFORMED BY:[place] [place], [place] [phone] MEDICAL JACKELYN VÁZQUEZ M.D.Performed By: #### BMP ####[address] [address] USAGFR/1.73 sq M.predicted MDRD (S/P/Bld) [Vol rate/Area]53.309 mL/min/{1.73_m2} NormalThe [facility] Physician GroupComment on above:Performed By: #### BMP ####[address] [place] [address] USAGlucose [Mass/Vol]81 mg/qBEsbwux21-346Oct [facility] Physician GroupComment on above: Result Comment: Random Glucose Reference Range is dependent on time and content of last meal. Glucose of more than 200 mg/dL in a nonstressed, ambulatory subject supports the diagnosis of Diabetes Mellitus. ADA recommended reference rangePerformed By: #### BMP ####[place] [address] USAPotassium [Moles/Vol]3.6 mmol/LNormal3.5-5.1The [facility] Physician GroupComment on above:Performed By: #### BMP ####[place] [address] USASodium [Moles/Vol]141 mmol/AZgnfgd234-187Bgh [facility] Physician GroupComment on above:Performed By: #### BMP ####[place] [address] USAUrea nitrogen [Mass/Vol]20 mg/dLNormal7-25The [facility] Comment on above:Performed By: #### BMP ####[place] [address] USAClostridium Difficileon 97-26-6507Zncjvibaqji DifficileNegativeNormalNegativeThe [facility] Physician GroupComment on above: Order Comment: > or = to 3 loose/watery stools in the last 24 HRS? Y Is patient on promotility agents or tube feeding? NResult Comment: Testing performed by RT- PCRPERFORMED BY:[address] [id number] MEDICAL JACKELYN VÁZQUEZ M.D.Performed By: #### CDT, LACTO SWBC ####[place] [address] USAComplete Blood Count Auto Diffon 11-25-1783Goluuptcl (Bld) [#/Vol]0.1 10*3/uLNormal0.0-0.2The [facility] Physician GroupComment on above:Result Comment: PERFORMED BY:[address] [place], [place] [phone] MEDICAL DIRECTORCARLOS VÁZQUEZ M.D.Performed By: #### CBC ####[place] [address] USABasophils/100 WBC (Bld)1.1 %Normal.The [facility] Physician GroupComment on above:Performed By: #### CBC ####[place] [address] USAEosinophils (Bld) [#/Vol]0.3 10*3/uLNormal0.0-0.45The [facility] Physician GroupComment on above:Performed By: #### CBC ####[place] [address] USAEosinophils/100 WBC (Bld)3.9 %Normal.The [facility] Physician GroupComment on above:Performed By: #### CBC ####[place] [address] USAErythrocyte distribution width (RBC) [Ratio]20.1 % High11.9-15.3The [facility] Physician GroupComment on above:Performed By: #### CBC ####[place] [address] [place] Hematocrit (Bld) [Volume fraction]22.3 %Low34.0-46.4The [facility] Physician GroupComment on above:Performed By: #### CBC ####[place] [address] USAHemoglobin (Bld) [Mass/Vol]7.4 g/dLLow 11.8-15.4The [facility] Physician GroupComment on above:Performed By: #### CBC ####[place] [address] [place] Lymphocytes (Bld) [#/Vol]0.8 10*3/uLLow1.00-4.8The [facility] Comment on above:Performed By: #### CBC ####[address] [address] USALymphocytes/100 WBC (Bld)12.0 %Normal.The [facility] Physician GroupComment on above:Performed By: #### CBC ####[address] (RBC) [Entitic mass]29.5 vdCmbbqa83.7-34.3The [facility] Physician GroupComment on above: Performed By: #### CBC ####[address] (RBC) [Entitic vol]88.5 dBMxrczx32-206Wzq [facility] Physician GroupComment on above:Performed By: #### CBC ####[place] [address] USAMean Corpuscular HGB Conc33.3 g/cXWpsekh84.0-35.0The [facility] Physician GroupComment on above: Performed By: #### CBC ####[place] [address] USAMonocytes (Bld) [#/Vol]1.1 10*3/uLHigh0.0-0.8The [facility] Physician GroupComment on above:Performed By: #### CBC ####[place] [address] USAMonocytes/100 WBC (Bld)15.6 %Normal.The [facility] Physician GroupComment on above:Performed By: #### CBC ####[place] [address] USANeutrophils (Bld) [#/Vol]4.7 10*3/uLNormal1.8-7.7The [facility] Physician GroupComment on above:Performed By: #### CBC ####[place] [address] USANeutrophils/100 WBC (Bld)67.4 %Normal. The [facility] Physician GroupComment on above:Performed By: #### CBC ####[place] [address] USANRBC% 0.1 /100{WBC}Normal0-0.5The [facility] Physician GroupComment on above:Performed By: #### CBC ####[place] [address] USAPlatelet mean volume (Bld) [Entitic vol]8.2 fLNormal6.3-10.7The [facility] Physician GroupComment on above:Performed By: #### CBC ####[place] [address] USAPlatelets (Bld) [#/Vol]446 10*3/kEEmlnen544-065Rnr [facility] Physician [facility] HospitalComment on above: Performed By: #### CBC ####[place] [address] USARBC (Bld) [#/Vol]2.52 10*6/uLLow3.60-5.00The [facility] Physician GroupComment on above:Performed By: #### CBC ####[place] [address] USAWBC (Bld) [#/Vol]7.0 10*3/uLNormal3.8-11.6The [facility] Physician [facility] HospitalComment on above:Performed By: #### CBC ####[place] [address] USAWhite Blood Count7.0 [CFU]/mLNormal3.8-11.6The [facility] Physician [facility] Comment on above:Performed By: #### CBC ####[place] [address] USAGastrointestinal Profile, PCRon 11-19-2024 Adenovirus F 40/41Not detectedNormalNot DetectedThe [facility] Physician [facility] Comment on above:Performed By: #### GI PROFILE, STL ####[facility] , AstrovirusNot detectedNormalNot DetectedThe [facility] Physician GroupComment on above:Performed By: #### GI PROFILE, STL ####[facility] ,C Difficile Toxin A/BNot detectedNormalNot DetectedThe [facility] Physician GroupComment on above:Performed By: #### GI PROFILE, STL ####[facility] ,Campylobacter Not detectedNormalNot DetectedThe [facility] Physician GroupComment on above: Performed By: #### GI PROFILE, STL ####[facility] ,CryptosporidiumNot detectedNormalNot DetectedThe [facility] Physician GroupComment on above: Performed By: #### GI PROFILE, STL ####[facility] ,Cyclospora cayetanensisNot detectedNormalNot DetectedThe [facility] Physician GroupComment on above:Performed By: #### GI PROFILE, STL ####[facility] ,E coli T362Bnj applicableNormalNot DetectedThe [facility] Physician GroupComment on above:Performed By: #### GI PROFILE, STL ####[facility] ,Entamoeba histolyticaNot detectedNormalNot DetectedThe [facility] Physician GroupComment on above:Performed By: #### GI PROFILE, STL ####[facility] , Enteroaggregative E coliNot detectedNormalNot DetectedThe [facility] Physician GroupComment on above:Performed By: #### GI PROFILE, STL ####[facility] ,Enteropathogenic E coliNot detectedNormalNot DetectedThe [facility] Physician GroupComment on above:Performed By: #### GI PROFILE, STL ####[facility] ,Enterotoxigenic E coliNot detectedNormalNot DetectedThe [facility] Physician GroupComment on above:Performed By: #### GI PROFILE, STL ####[facility] ,Giardia lambliaNot detectedNormalNot DetectedThe [facility] Physician GroupComment on above:Performed By: #### GI PROFILE, STL ####[facility] ,Norovirus GI/GIINot detectedNormalNot DetectedThe [facility] Physician GroupComment on above:Performed By: #### GI PROFILE, STL ####[facility] ,Plesiomonas shigelloidesNot detectedNormalNot DetectedThe [facility] Physician GroupComment on above:Performed By: #### GI PROFILE, STL ####[facility] ,Rotavirus ANot detectedNormalNot DetectedThe [facility] Physician GroupComment on above:Performed By: #### GI PROFILE, STL ####[facility] ,SalmonellaNot detectedNormalNot DetectedThe [facility] Physician GroupComment on above:Performed By: #### GI PROFILE, STL ####[facility] ,SapovirusNot detectedNormalNot DetectedThe [facility] Physician GroupComment on above:Result Comment: Performed at: [facility] Lab[address] [id number] LabDirector: Joyce Castillo MD, Phone: [phone] BY:[address] [address] [place], [place] [phone] MEDICAL DIRECTORCARLOS VÁZQUEZ M.D.Performed By: #### GI PROFILE, STL ####[facility] ,Aldrc-akxie-eyognlfzf E coli Not detectedNormalNot DetectedThe [facility] Physician GroupComment on above: Performed By: #### GI PROFILE, STL ####[facility] , Shigella/Enteroinvasive E coliNot detectedNormalNot DetectedThe [facility] Physician GroupComment on above:Performed By: #### GI PROFILE, STL ####[facility] ,VibrioNot detectedNormalNot DetectedThe [facility] Group Comment on above:Performed By: #### GI PROFILE, STL ####[facility] , Vibrio choleraeNot detectedNormalNot DetectedThe [facility] Group Comment on above:Performed By: #### GI PROFILE, STL ####[facility] , Yersinia enterocoliticaNot detectedNormalNot DetectedThe [facility] Physician GroupComment on above:Performed By: #### GI PROFILE, STL ####[facility] ,Lactic Acidon 82-15-6796Wnyjqxm [Moles/Vol]1.0 mmol/LNormal0.5-1.9 The [facility] Physician GroupComment on above:Result Comment: Lactic Acid reference range has been updated to 0.5 ? 1.9 mmol/L and the critical range of 2.0 or greater.PERFORMED BY:[address] ABHISHEKGaloRadhaHUI, [place] [phone] MEDICAL JACKELYN VÁZQUEZ M.D.Performed By: #### LACTIC ####[place] [address] [id number] USALactoferrin, Stool WBCon 65-20-4697Ewlepjdfycp, Stool WBCNormalThe [facility] Physician GroupComment on above:Performed By: #### CDT, LACTO SWBC ####[address] [address] USALeukoReduced RBCon 25-42-6767OczmtOpzhnjc RBCTRANSFUSED 11/19/24 1410 NormalThe [facility] Physician GroupPotassiumon 74-36-0998Uqsceprrg [Moles/Vol] 3.1 mmol/LLow3.5-5.1The [facility] Physician GroupComment on above:Result Comment: PERFORMED BY:[address] [place], [place] [phone] MEDICAL JACKELYN VÁZQUEZ M.D.Performed By: #### K ####[address] [address] USAStool Bacterial Panelon 13-16-6396GfsasjdnocvrwWiarpbemBdvuizJparhshsVuv [facility] Physician GroupComment on above:Result Comment: Campylobacter test includes C. jejuni and C. coli.Performed By: #### ENT PARASITIC P, ENT BACT PANEL ####[address] [address] [place] Salmonella SpeciesNegativeNormalNegativeThe [facility] Physician GroupComment on above:Result Comment: Testing performed by RT-PCRPERFORMED BY:[address]JUANWARSAW, [place] [phone] MEDICAL DIRECTORCARLOS VÁZQUEZ M.D.Performed By: #### ENT PARASITIC P, ENT BACT PANEL ####[address] [address] USAShiga Toxin (E coli O157+oth)NegativeNormalNegativeThe [facility]ician Group Comment on above:Performed By: #### ENT PARASITIC P, ENT BACT PANEL ####[address] [address] [facility] Shigella SpeciesNegativeNormalNegativeThe [facility] Physician GroupComment on above:Result Comment: Shigella sp. test includes Shigella species and Enteroinvasive E. coli (EIEC).Performed By: #### ENT PARASITIC P, ENT BACT PANEL ####[address] [address] USAStool Occult Blood (Guaiac)on 24-41-1699Unmrm Occult Blood (Guaiac)NormalThe [facility] Physician GroupComment on above:Performed By: #### OB(GUAIAC) ####[address] [address]HEMBncmd Parasitic Panel on 92-18-1762Urgipgbsoyitsyt (C.hominis+parNegativeNormalNegativeThe [facility] Physician GroupComment on above:Result Comment: Cryptosporidium test includes C. hominis and C. parvum.Performed By: #### ENT PARASITIC P, ENT BACT PANEL ####[address] [address] [facility] Entamoeba histolyticaNegativeNormalNegativeThe [facility] Physician GroupComment on above:Result Comment: Testing performed by RT-PCRPERFORMED BY:[address]FOR[place], [place] [phone] MEDICAL DIRECTORCARLOS VÁZQUEZ M.D.Performed By: #### ENT PARASITIC P, ENT BACT PANEL ####[address] [address] USAGiardia lambliaNegativeNormalNegativeThe [facility] Physician GroupComment on above:Performed By: #### ENT PARASITIC P, ENT BACT PANEL ####[address] [address] USAType and Screenon 11-19-2024 ABO and Rh group Nom (Bld)Blood group A Rh(D) positiveNormalThe [facility] Physician GroupComment on above:Order Comment: Transfuse now? Y Number of units to transfuse now? 1Result Comment: PERFORMED BY:[address] [place], [place] [phone] MEDICAL DIRECTORCARLOS VÁZQUEZ M.D.Basic Metabolic Panelon 90-26-9961Tiwxc gap [Moles/Vol]15.6 mmol/LHigh6.0-15.0The [facility] Physician GroupComment on above: Performed By: #### DIFF CBC, BMP ####[address] [address] USACalcium [Mass/Vol]8.0 mg/dLLow8.6-10.3The [facility] Physician GroupComment on above:Performed By: #### DIFF CBC, BMP ####[address] [address] USAChloride [Moles/Vol] 100 mmol/QEoyemb08-980Akp [facility] Physician GroupComment on above:Performed By: #### DIFF CBC, BMP ####[address] [address] USACO2 [Moles/Vol]27.7 mmol/DTsktaw28.0-31.0The [facility] Physician GroupComment on above:Performed By: #### DIFF CBC, BMP ####[address] [address] [place] Creatinine [Mass/Vol]1.20 mg/dLNormal0.60-1.20The [facility] Comment on above:Performed By: #### DIFF CBC, BMP ####[address] [address] USACreatinine Clr Calc Eoxoqipi52.58 NormalThe [facility] Physician GroupComment on above:Result Comment: PERFORMED BY:[address] [place], [place] [phone] MEDICAL DIRECTORCARLOS VÁZQUEZ M.D.Performed By: #### DIFF CBC, BMP ####[address] [place] [address] USAGFR/1.73 sq M.predicted MDRD (S/P/Bld) [Vol rate/Area]47.500 mL/min/{1.73_m2} NormalThe [facility] Physician GroupComment on above:Performed By: #### DIFF CBC, BMP ####[address] [address] [place] Glucose [Mass/Vol]73 mg/uKYzuekn54-575Tbm [facility] Physician GroupComment on above:Result Comment: Random Glucose Reference Range is dependent on time and content of last meal. Glucose of more than 200 mg/dL in a nonstressed, ambulatory subject supports the diagnosis of Diabetes Mellitus. ADA recommended reference rangePerformed By: #### DIFF CBC, BMP ####[address] [address] USAPotassium [Moles/Vol]2.3 mmol/LOff scale low3.5-5.1The [facility] Physician GroupComment on above:Result Comment: Critical Result Called to and read back by: KEY ALMAZAN at: 11/18/2024 05:52:36 by:[id number] By: #### DIFF CBC, BMP ####[address] [address] USASodium [Moles/Vol]141 mmol/LNormal 136-145The [facility] Physician GroupComment on above:Performed By: #### DIFF CBC, BMP ####[address] [address] USAUrea nitrogen [Mass/Vol]21 mg/dLNormal7-25The [facility] Comment on above:Performed By: #### DIFF CBC, BMP ####[address] [address] USADiff and CBCon 87-20-7777Clbrmhyobiye Ql (Bld)ModerateNormalThe [place] Physician GroupComment on above:Performed By: #### DIFF CBC, BMP ####[address] [address] USABand form neutrophils/100 WBC (Bld)5 %Normal0-5The [facility] Physician GroupComment on above:Performed By: #### DIFF CBC, BMP ####[address] [address] [place] Basophils/100 WBC (Bld)1 %Normal0-2The [facility] Physician GroupComment on above:Performed By: #### DIFF CBC, BMP ####[address] [address] USAEosinophils/100 WBC (Bld)2 %Normal1-3The [facility] Physician GroupComment on above:Performed By: #### DIFF CBC, BMP ####[address] [address] [place] Erythrocyte distribution width (RBC) [Ratio]19.2 %High11.9-15.3The [facility] Physician GroupComment on above:Performed By: #### DIFF CBC, BMP ####[address] [address] USAGiant Platelet Tally2 /100{WBC}NormalThe [facility] Physician GroupComment on above:Performed By: #### DIFF CBC, BMP ####[address] [address] USAHematocrit (Bld) [Volume fraction]22.7 %Low34.0-46.4The [facility] Physician GroupComment on above:Performed By: #### DIFF CBC, BMP ####[address] [address] USAHemoglobin (Bld) [Mass/Vol]7.6 g/dLLow11.8-15.4The [facility] Physician GroupComment on above: Performed By: #### DIFF CBC, BMP ####[address] [address] USAHypochromasiaSlightNormHCA Florida Citrus Hospital Physician GroupComment on above:Performed By: #### DIFF CBC, BMP ####[address] [address] USALymphocytes/100 WBC (Bld)3 % Icm91-94Npt [facility] Physician GroupComment on above:Performed By: #### DIFF CBC, BMP ####[address] [address] USAMacrocytosisSlightNormHCA Florida Citrus Hospital Physician GroupComment on above: Performed By: #### DIFF CBC, BMP ####[address] [address] [facility] ([facility]BC) [Entitic mass]29.2 vbUjpzgx31.7-34.3The [facility] Physician GroupComment on above:Performed By: #### DIFF CBC, BMP ####[address] [address] [facility] (RBC) [Entitic vol]87.6 uCZfbnnt47-331Sdt [facility] Physician GroupComment on above:Performed By: #### DIFF CBC, BMP ####[address] [address] USAMean Corpuscular HGB Conc33.3 g/dLNormal 32.0-35.0The [facility] Physician GroupComment on above:Performed By: #### DIFF CBC, BMP ####[address] [address] USAMetamyelocytes1 %High0-0The [facility] Physician GroupComment on above: Performed By: #### DIFF CBC, BMP ####[address] [address] USAMonocytes/100 WBC (Bld)20 %High2-11The [facility] Physician GroupComment on above:Performed By: #### DIFF CBC, BMP ####[address] [address] USAPlatelet Estimate IncreasedNormalNormHCA Florida Citrus Hospital Physician GroupComment on above:Performed By: #### DIFF CBC, BMP ####[address] [address] USAPlatelet mean volume (Bld) [Entitic vol]8.1 fLNormal6.3-10.7The [facility] Physician GroupComment on above:Performed By: #### DIFF CBC, BMP ####[address] [address] [place] Platelet MorphologyNormalNormalNoMission Family Health Center Physician GroupComment on above:Result Comment: PERFORMED BY:[address] [place], [place] [phone] MEDICAL DIRECTORCARLOS VÁZQUEZ M.D.Performed By: #### DIFF CBC, BMP ####[address] [address] USAPlatelets (Bld) [#/Vol]540 10*3/rKVohw971-584 The [facility] Physician GroupComment on above:Performed By: #### DIFF CBC, BMP ####[address] [address] [place] PolychromasiaSlightNormHCA Florida Citrus Hospital Physician GroupComment on above:Performed By: #### DIFF CBC, BMP ####[address] [address] USARBC (Bld) [#/Vol]2.59 10*6/uLLow3.60-5.00The [facility] Physician GroupComment on above:Performed By: #### DIFF CBC, BMP ####[address] [address] USARBC morphology finding Nom (Bld)NormalNormalCedars Medical Center Physician [facility] Comment on above:Performed By: #### DIFF CBC, BMP ####[address] [address] USAReactive Lymphocytes3 %Normal0-12The [facility] Physician GroupComment on above:Performed By: #### DIFF CBC, BMP ####[address] [address] [place] Segmented neutrophils/100 WBC (Bld)66 %Jmpfak71-32Sag [facility] Comment on above:Performed By: #### DIFF CBC, BMP ####[address] [place] [address] USAWBC (Bld) [#/Vol]8.9 10*3/uLNormal 3.8-11.6The [facility] Physician GroupComment on above:Performed By: #### DIFF CBC, BMP ####[address] [place] [address] USAWhite Blood Count8.9 [CFU]/mLNormal3.8-11.6The [facility] Comment on above:Performed By: #### DIFF CBC, BMP ####[address] [place] [address] USAECG 12 lead ECGon 72-59-6149YRW 12 lead ECGNormalThe [facility] Physician [facility] HospitalPotassiumon 25-46-4669Bwdfgswjf [Moles/Vol]2.9 mmol/LOff scale low3.5-5.1The [facility] Physician GroupComment on above:Result Comment: Critical Result Called to and read back by: NANCI MCDONALD at: 11/18/2024 13:54:38 by:MLGPERFORMED BY:[address] [place], [place] [phone] MEDICAL DIRECTORCARLOS VÁZQUEZ M.D.Performed By: #### K ####[address] [address] USAComprehensive Metabolic Panelon 00-21-0920Esagggg [Mass/Vol]3.0 g/dLLow3.5-5.7The [facility] Physician GroupComment on above: Performed By: #### CMP, PAB, MG, DIFF CBC ####[address] [address] USAAlbumin/Globulin [Mass ratio]1.4 {ratio} NormalThe [facility] Physician [facility] HospitalComment on above:Performed By: #### CMP, PAB, MG, DIFF CBC ####[address] [address] USAALP [Catalytic activity/Vol]102 U/DIrxntl15-945Umj [facility] Physician GroupComment on above:Performed By: #### CMP, PAB, MG, DIFF CBC ####[address] [place] [address] USAALT [Catalytic activity/Vol]57 U/LHigh7-52The [facility] Physician GroupComment on above: Performed By: #### CMP, PAB, MG, DIFF CBC ####[address] [place] [address] USAAnion gap [Moles/Vol]16.3 mmol/LHigh6.0-15.0 The [facility] Physician GroupComment on above:Performed By: #### CMP, PAB, MG, DIFF CBC ####[address] [place] [address] USAAST [Catalytic activity/Vol]20 U/EMnvhnz24-59Exw [facility] Comment on above:Performed By: #### CMP, PAB, MG, DIFF CBC ####[address] [address] USABilirubin [Mass/Vol] 1.4 mg/dLHigh0.3-1.0The [facility] Physician GroupComment on above:Result Comment: Samples from patients who have taken Naproxen have shown spurious elevation in Total Bilirubin levels. A metabolite of Naproxen, O- desmethylnaproxen, has been shown to interfere with the Jentobyik-Raeannf method for measuring Total Bilirubin.Performed By: #### CMP, PAB, MG, DIFF CBC ####[address] [place] [address] USACalcium [Mass/Vol]8.4 mg/dLLow8.6-10.3The [facility] Physician GroupComment on above: Performed By: #### CMP, PAB, MG, DIFF CBC ####[address] [place] [address] USAChloride [Moles/Vol]105 mmol/SRipgbf80-116Yqo [facility] Physician GroupComment on above:Performed By: #### CMP, PAB, MG, DIFF CBC ####[address] [address] [place] CO2 [Moles/Vol]23.9 mmol/SVtlopm46.0-31.0The [facility] Physician [facility] HospitalComment on above:Performed By: #### CMP, PAB, MG, DIFF CBC ####[place] [address] USACreatinine [Mass/Vol]1.52 mg/dLHigh 0.60-1.20ThCascade Medical Center Physician [facility] HospitalComment on above:Performed By: #### CMP, PAB, MG, DIFF CBC ####[place] [address] USACreatinine Clr Calc Dyftxlgf89.97NormHCA [facility] Physician [facility] Comment on above:Performed By: #### CMP, PAB, MG, DIFF CBC ####[place] [address] USAGFR/1.73 sq M.predicted MDRD (S/P/Bld) [Vol rate/Area]35.768 mL/min/{1.73_m2}NormalThe [facility] Physician [facility] HospitalComment on above:Performed By: #### CMP, PAB, MG, DIFF CBC ####[place] [address] [place] Globulin (S) [Mass/Vol]2.1 g/dLNoMission Family Health Center Physician [facility] HospitalComment on above:Performed By: #### CMP, PAB, MG, DIFF CBC ####[place] [address] USAGlucose [Mass/Vol]75 mg/kTSakdce12-276 The [facility] Physician GroupComment on above:Result Comment: Random Glucose Reference Range is dependent on time and content of last meal. Glucose of more than 200 mg/dL in a nonstressed, ambulatory subject supports the diagnosis of Diabetes Mellitus. ADA recommended reference rangePerformed By: #### CMP, PAB, MG, DIFF CBC ####[place] [address] USAPotassium [Moles/Vol]3.2 mmol/LLow3.5-5.1The [facility] Physician [facility] Comment on above:Performed By: #### CMP, PAB, MG, DIFF CBC ####[address] [address] USAProtein [Mass/Vol]5.1 g/dLLow6.4-8.9The [facility] Physician GroupComment on above:Performed By: #### CMP, PAB, MG, DIFF CBC ####[address] [address] USASodium [Moles/Vol]142 mmol/WSbwhfz258-762Ozu [facility] Physician GroupComment on above:Performed By: #### CMP, PAB, MG, DIFF CBC ####[place] [address] [facility] Urea nitrogen [Mass/Vol]29 mg/dLHigh7-25The [facility] Physician GroupComment on above:Performed By: #### CMP, PAB, MG, DIFF CBC ####[address] [address] USADiff and CBCon 15-54-5383Ajxhklkdmzua Ql (Bld)ModerateNormalThe [facility] Physician GroupComment on above:Performed By: #### CMP, PAB, MG, DIFF CBC ####[place] [address] USABand form neutrophils/100 WBC (Bld)13 %High0-5The [facility] Physician GroupComment on above:Performed By: #### CMP, PAB, MG, DIFF CBC ####[place] [address] [facility] Basophils/100 WBC (Bld)2 %Normal0-2The [facility] Physician GroupComment on above:Performed By: #### CMP, PAB, MG, DIFF CBC ####[address] [address] USAEosinophils/100 WBC (Bld)6 %High1-3The [facility] Physician GroupComment on above:Performed By: #### CMP, PAB, MG, DIFF CBC ####[place] [address] [facility] Erythrocyte distribution width (RBC) [Ratio]15.7 %High11.9-15.3The [facility] Physician GroupComment on above:Performed By: #### CMP, PAB, MG, DIFF CBC ####[place] [address] [place] Hematocrit (Bld) [Volume fraction]25.0 %Low34.0-46.4The [facility] Physician GroupComment on above:Performed By: #### CMP, PAB, MG, DIFF CBC ####[place] [address] USAHemoglobin (Bld) [Mass/Vol]8.2 g/dLLow11.8-15.4The [facility] Physician GroupComment on above: Performed By: #### CMP, PAB, MG, DIFF CBC ####[place] [address] USAHypochromasiaModerateCedars Medical Center Physician GroupComment on above:Performed By: #### CMP, PAB, MG, DIFF CBC ####[place] [address] USALarge PlateletsSlightCedars Medical Center Physician GroupComment on above:Result Comment: PERFORMED BY:[address] [place], [place] [phone] MEDICAL DIRECTORCARLOS VÁZQUEZ M.D.Performed By: #### CMP, PAB, MG, DIFF CBC ####[place] [address] USALymphocytes/100 WBC (Bld)5 %Ykq21-00Mnw [facility] Physician GroupComment on above:Performed By: #### CMP, PAB, MG, DIFF CBC ####[place] [address] [facility] MacrocytosisSlightCedars Medical Center Physician GroupComment on above:Performed By: #### CMP, PAB, MG, DIFF CBC ####[place] [address] USAMCH (RBC) [Entitic mass]28.8 fqErzeaw29.7-34.3The [facility] Physician GroupComment on above:Performed By: #### CMP, PAB, MG, DIFF CBC ####[address] [address] USAMCV (RBC) [Entitic vol]87.9 lXKkadbm86-862Wwb [facility] Physician GroupComment on above:Performed By: #### CMP, PAB, MG, DIFF CBC ####[place] [address] USAMean Corpuscular HGB Conc32.8 g/dL Orvdye09.0-35.0The [facility] Physician GroupComment on above:Performed By: #### CMP, PAB, MG, DIFF CBC ####[place] [address] USAMetamyelocytes2 %High0-0The [facility] Physician GroupComment on above:Performed By: #### CMP, PAB, MG, DIFF CBC ####[place] [address] USAMonocytes/100 WBC (Bld)12 %High2-11The [facility] Physician GroupComment on above:Performed By: #### CMP, PAB, MG, DIFF CBC ####[place] [address] USAPlatelet EstimateNormalNormalNormalThe [facility] Physician GroupComment on above:Performed By: #### CMP, PAB, MG, DIFF CBC ####[place] [place] Platelet mean volume (Bld) [Entitic vol]9.1 fLNormal6.3-10.7The [facility] Physician GroupComment on above:Performed By: #### CMP, PAB, MG, DIFF CBC ####[address] [address] [place] Platelets (Bld) [#/Vol]368 10*3/jCUfjghp330-691Bwg [facility] Comment on above:Performed By: #### CMP, PAB, MG, DIFF CBC ####[place] [address] USAPoikilocytosisSlight NormalThe [facility] Physician GroupComment on above:Performed By: #### CMP, PAB, MG, DIFF CBC ####[address] [address] USAPolychromasiaSCrawley Memorial Hospital Physician GroupComment on above: Performed By: #### CMP, PAB, MG, DIFF CBC ####[address] [address] USARBC (Bld) [#/Vol]2.84 10*6/uLLow3.60-5.00The [facility] Physician GroupComment on above:Performed By: #### CMP, PAB, MG, DIFF CBC ####[address] [address] [place] SchistocytesCritical access hospital Physician GroupComment on above:Performed By: #### CMP, PAB, MG, DIFF CBC ####[address] [address] USASegmented neutrophils/100 WBC (Bld)60 %Unnlyh05-59 The [facility] Physician GroupComment on above:Performed By: #### CMP, PAB, MG, DIFF CBC ####[address] [address] USAStomatocytesSCrawley Memorial Hospital Physician GroupComment on above: Performed By: #### CMP, PAB, MG, DIFF CBC ####[address] [address] USATear Drop CellsCritical access hospital Physician GroupComment on above:Performed By: #### CMP, PAB, MG, DIFF CBC ####[address] [address] USAWBC (Bld) [#/Vol]14.4 10*3/uLHigh3.8-11.6The [facility] Physician GroupComment on above:Performed By: #### CMP, PAB, MG, DIFF CBC ####[address] [address] USAWhite Blood Count12.6 [CFU]/mLHigh 3.8-11.6The [facility] Physician GroupComment on above:Performed By: #### CMP, PAB, MG, DIFF CBC ####[address] [address] USAMagnesiumon 97-75-8424Ijsukozki [Mass/Vol]2.1 mg/dLNormal1.9-2.7The [facility] Physician GroupComment on above:Performed By: #### CMP, PAB, MG, DIFF CBC ####[place] [id number] [place] Potassiumon 17-38-9088Nitjyplby [Moles/Vol]3.5 mmol/LNormal3.5-5.1[facility] Physician [facility] HospitalComment on above:Result Comment: PERFORMED BY:[place] [address] [place]NIE WEISSAlirioHUI, [place] [phone] MEDICAL JACKELYN VÁZQUEZ M.D.Performed By: #### K ####[place] [id number] USAPrealbuminon 42-15-2976Bzhdibrigc [Mass/Vol]12.2 mg/dLLow17.0-34.0[facility] Physician [facility] HospitalComment on above: Result Comment: PERFORMED BY:[place] [address] [place], [place] [phone] MEDICAL JACKELYN VÁZQUEZ M.D.Performed By: #### CMP, PAB, MG, DIFF CBC ####[place] [id number] USAMagnesiumon 60-93-6048Vppyzwyyq [Mass/Vol]1.5 mg/dLLow1.9-2.7The [facility] Physician [facility] HospitalComment on above: Result Comment: PERFORMED BY:[place] [address] DONNIE WEISSAlirioHUIMILTON, [place] [phone] MEDICAL JACKELYN VÁZQUEZ M.D.Performed By: #### RENAL, MG ####[place] [id number] USARenal Function Panelon 60-03-8173Zisndhz [Mass/Vol] 3.0 g/dLLow3.5-5.7The [facility] Physician [facility] HospitalComment on above:Performed By: #### RENAL, MG ####[address] [address] USAAnion gap [Moles/Vol]15.2 mmol/LHigh6.0-15.0The Hospital Of The University Of PennsylvaniaComment on above:Performed By: #### RENAL, MG ####[address] [address] USACalcium [Mass/Vol]8.7 mg/dL Normal8.6-10.3The [facility] Physician [facility] HospitalComment on above:Performed By: #### RENAL, MG ####[place] [address] USAChloride [Moles/Vol]106 mmol/YNrjudt10-329Hcv [facility] Phys[facility] Comment on above:Performed By: #### RENAL, MG ####[address] [address] USACO2 [Moles/Vol]26.2 mmol/LNormal 21.0-31.0[facility] Physician [facility] HospitalComment on above:Performed By: #### RENAL, MG ####[address] [address] [place] Creatinine [Mass/Vol]1.67 mg/dLHigh0.60-1.20The [facility] Physician [facility] HospitalComment on above:Performed By: #### RENAL, MG ####[address] [address] USACreatinine Clr Calc Djskvdms30.92NormalThe [facility] Physician [facility] HospitalComment on above:Performed By: #### RENAL, MG ####[address] [address] [place] GFR/1.73 sq M.predicted MDRD (S/P/Bld) [Vol rate/Area]31.949 mL/min/{1.73_m2} NormalThe Hospital Of The University Of PennsylvaniaComment on above:Performed By: #### RENAL, MG ####[address] [address] USAGlucose [Mass/Vol]59 mg/sWSam73-817Wln [facility] Physician GroupComment on above:Result Comment: Random Glucose Reference Range is dependent on time and content of last meal. Glucose of more than 200 mg/dL in a nonstressed, ambulatory subject supports the diagnosis of Diabetes Mellitus. ADA recommended reference range Performed By: #### RENAL, MG ####[address] [address] USAPhosphate [Mass/Vol]2.8 mg/dLNormal2.5-4.5The [facility] Physician GroupComment on above:Performed By: #### RENAL, MG ####[address] [address] [place] Potassium [Moles/Vol]3.4 mmol/LLow3.5-5.1The [facility] Physician GroupComment on above:Performed By: #### RENAL, MG ####[address] [address] USASodium [Moles/Vol]144 mmol/ZZbzval573-686Myj [facility] Physician GroupComment on above:Performed By: #### RENAL, MG ####[address] [address] USAUrea nitrogen [Mass/Vol]34 mg/dLHigh7-25The [facility] Physician GroupComment on above:Performed By: #### RENAL, MG ####[address] [address] USABasic Metabolic Panelon 30-91-5086Vphbh gap [Moles/Vol]Not performedNormal6.0-15.0The [facility] Physician GroupComment on above:Performed By: #### BMP ####[address] [address] USACalcium [Mass/Vol]8.6 mg/dLNormal8.6-10.3The [facility] Physician GroupComment on above:Performed By: #### BMP ####[address] [address] USAChloride [Moles/Vol] 106 mmol/VQszrev25-442Hvd [facility] Physician GroupComment on above:Performed By: #### BMP ####[facility] [place] [address] USACO2 [Moles/Vol]21.3 mmol/RPrffad60.0-31.0The [facility]ician Group Comment on above:Performed By: #### BMP ####[address] [address] USACreatinine [Mass/Vol]2.16 mg/dLHigh0.60-1.20 The [facility] Physician GroupComment on above:Performed By: #### BMP ####[address] [address] [place] Creatinine Clr Calc Tmvmalol44.59NormalThe [facility] Physician GroupComment on above:Result Comment: PERFORMED BY:[address] [place], [place] [phone] MEDICAL DIRECTORCARLOS VÁZQUEZ M.D.Performed By: #### BMP ####[address] [address] USAGFR/1.73 sq M.predicted MDRD (S/P/Bld) [Vol rate/Area]23.462 mL/min/{1.73_m2}NormalThe [facility] Physician GroupComment on above:Performed By: #### BMP ####[address] [address] USAGlucose [Mass/Vol]79 mg/eEXoqzdl15-704Cqe [facility] Physician GroupComment on above:Result Comment: Random Glucose Reference Range is dependent on time and content of last meal. Glucose of more than 200 mg/dL in a nonstressed, ambulatory subject supports the diagnosis of Diabetes Mellitus. ADA recommended reference rangePerformed By: #### BMP ####[address] [address] USAPotassiumNormal3.5-5.1The [facility] Physician GroupComment on above:Result Comment: Specimen hemolyzed, redraw requested Results called at 0552 on 11/13/24Performed By: #### BMP ####[address] [address] USASodium [Moles/Vol]140 mmol/XRavqrh310-212Lpt [facility] Physician GroupComment on above: Performed By: #### BMP ####[address] [address] USAUrea nitrogen [Mass/Vol]40 mg/dLHigh7-25The [facility] Physician GroupComment on above:Performed By: #### BMP ####[address] [address] USAECH echo limitedon 30-39-8003UOA echo limitedNormalThCascade Medical Center Physician GroupMagnesiumon 63-20-9389Xjnemuvss [Mass/Vol]1.7 mg/dLLow1.9-2.7The [facility] Group Comment on above:Result Comment: PERFORMED BY:[place] [address] [place] [place], [place] [phone] MEDICAL DIRECTORCARLOS VÁZQUEZ M.D.Performed By: #### MG ####[address] [address] USARedraw Potassiumon 11-13-2024 Potassium [Moles/Vol]3.4 mmol/LLow3.5-5.1The [facility] Physician [facility] HospitalComment on above:Result Comment: PERFORMED BY:[place] [address] [place]NIE MARTINEZWARSAW, [place] [phone] MEDICAL JACKELYN VÁZQUEZ M.D.Performed By: #### REDRAW K ####[address] [address] USABasic Metabolic Panelon 85-07-9991Jopsp gap [Moles/Vol]15.0 mmol/LNormal6.0-15.0The [facility] Physician [facility] HospitalComment on above:Performed By: #### BMP, HEPATIC ####[place] [phone] USACalcium [Mass/Vol]8.9 mg/dLNormal8.6-10.3The [facility] Physician GroupComment on above:Performed By: #### BMP, HEPATIC ####[address] [place] [address] [place] Chloride [Moles/Vol]104 mmol/TAkfgiz14-011Weo [facility] Physician GroupComment on above:Performed By: #### BMP, HEPATIC ####[place] [address] [place] [address] USACO2 [Moles/Vol]24.4 mmol/UWvopzy32.0-31.0The [facility] Physician GroupComment on above:Performed By: #### JOSE, HEPATIC ####[place] [address] [place] [address] [place] Creatinine [Mass/Vol]2.48 mg/dLHigh0.60-1.20The [facility] Physician GroupComment on above:Performed By: #### JOSE, HEPATIC ####[place] [address] [place] [address] USACreatinine Clr Calc Ozzztsxl54.55NormalThe [facility] Physician [facility] HospitalComment on above:Result Comment: PERFORMED BY:[address] ABHISHEKGaloRadhaFORKS, [place] [phone] MEDICAL JACKELYN VÁZQUEZ M.D.Performed By: #### JOSE, HEPATIC ####[address] [address] [place] GFR/1.73 sq M.predicted MDRD (S/P/Bld) [Vol rate/Area]19.878 mL/min/{1.73_m2} NormalThe [facility] Physician [facility] HospitalComment on above:Performed By: #### JOSE, HEPATIC ####[address] [address] USAGlucose [Mass/Vol]91 mg/bHInsoyd83-050Nel [facility] Physician GroupComment on above:Result Comment: Random Glucose Reference Range is dependent on time and content of last meal. Glucose of more than 200 mg/dL in a nonstressed, ambulatory subject supports the diagnosis of Diabetes Mellitus. ADA recommended reference rangePerformed By: #### BMP, HEPATIC ####[address] [address] USAPotassium [Moles/Vol]3.4 mmol/LLow 3.5-5.1The [facility] Physician GroupComment on above:Performed By: #### BMP, HEPATIC ####[address] [address] USASodium [Moles/Vol]140 mmol/UUstwgm115-826Vng [facility] Physician GroupComment on above:Performed By: #### BMP, HEPATIC ####[address] [address] USAUrea nitrogen [Mass/Vol]47 mg/dLHigh7-25The [facility] Physician GroupComment on above:Performed By: #### BMP, HEPATIC ####[address] [address] USADiff and CBCon 88-35-2245Zwhxmrqtwicd Ql (Bld)ModerateNormalThe [facility] Physician GroupComment on above:Performed By: #### DIFF CBC ####[place] [id number] USABand form neutrophils/100 WBC (Bld)9 %High0-5The [facility] Physician GroupComment on above:Performed By: #### DIFF CBC ####[address] [address] [place] Erythrocyte distribution width (RBC) [Ratio]16.0 %High11.9-15.3The [facility] Physician GroupComment on above:Performed By: #### DIFF CBC ####[address] [address] USAGiant Platelet Tally2 /100{WBC}NormalThe [facility] Physician GroupComment on above:Performed By: #### DIFF CBC ####[address] [address] USAHematocrit (Bld) [Volume fraction]26.0 %Low34.0-46.4The [facility] Physician GroupComment on above:Performed By: #### DIFF CBC ####[address] [address] USAHemoglobin (Bld) [Mass/Vol]8.7 g/dLLow 11.8-15.4The [facility] Physician GroupComment on above:Performed By: #### DIFF CBC ####[address] [address] [place] HypochromasiaModerateNoMission Family Health Center Physician GroupComment on above: Performed By: #### DIFF CBC ####[address] [address] USALymphocytes/100 WBC (Bld)5 %Cbh30-37Uun [facility] Physician GroupComment on above:Performed By: #### DIFF CBC ####[address] [address] USAMCH (RBC) [Entitic mass]28.0 orGpvvmd78.7-34.3The [facility] Physician GroupComment on above: Performed By: #### DIFF CBC ####[address] [address] USAMCV (RBC) [Entitic vol]84.1 iNHccfwq19-880Iea [facility] Physician GroupComment on above:Performed By: #### DIFF CBC ####[address] [address] USAMean Corpuscular HGB Conc33.4 g/hNOssrzc16.0-35.0The [facility] Physician [facility] HospitalComment on above:Performed By: #### DIFF CBC ####[address] [address] USAMonocytes/100 WBC (Bld)8 %Normal2-11The [facility] Physician GroupComment on above:Performed By: #### DIFF CBC ####[address] [address] [place] Myelocytes2 %High0-0The [facility] Physician [facility] HospitalComment on above:Performed By: #### DIFF CBC ####[address] [address] USANucleated Red Blood Cell4 /100{WBC}High0-0The [facility] Physician Group Comment on above:Performed By: #### DIFF CBC ####[address] [address] USAPlatelet EstimateNormalNormalNormHCA Florida [facility]rus Hospital Physician GroupComment on above:Performed By: #### DIFF CBC ####[address] [address] [place] Platelet mean volume (Bld) [Entitic vol]8.3 fLNormal6.3-10.7The [facility] Physician GroupComment on above:Performed By: #### DIFF CBC ####[address] [address] USAPlatelet Morphology NormalNormalNoMission Family Health Center Physician GroupComment on above:Result Comment: PERFORMED BY:[address] ABHISHEKGaloRadhaHUI, [place] [phone] MEDICAL DIRECTORCARLOS VÁZQUEZ M.D.Performed By: #### DIFF CBC ####[address] [address] USAPlatelets (Bld) [#/Vol]244 10*3/bIObpcnl853-294Wxm [facility] Physician GroupComment on above:Performed By: #### DIFF CBC ####[address] [address] USAPoikilocytosisModerateNoMission Family Health Center Physician [facility] HospitalComment on above:Performed By: #### DIFF CBC ####[address] [address] [place] PolychromasiaSlightNoMission Family Health Center Physician GroupComment on above:Performed By: #### DIFF CBC ####[address] [address] USAPromyelocytes1 %High0-0The [facility] Physician [facility] HospitalComment on above:Performed By: #### DIFF CBC ####[address] [address] USARBC (Bld) [#/Vol]3.09 10*6/uLLow3.60-5.00The [facility] Physician GroupComment on above:Performed By: #### DIFF CBC ####[address] [address] [place] Segmented neutrophils/100 WBC (Bld)76 %Mdiy21-94Zvu [facility] Physician [facility] Comment on above:Performed By: #### DIFF CBC ####[address] [address] USAStomatocytesModerateCedars Medical Center Physician GroupComment on above:Performed By: #### DIFF CBC ####[address] [address] USATarget CellsSlightNoMission Family Health Center Physician GroupComment on above:Performed By: #### DIFF CBC ####[address] [address] USAWBC (Bld) [#/Vol]17.6 10*3/uLHigh3.8-11.6The [facility] Physician [facility] Comment on above:Performed By: #### DIFF CBC ####[address] [address] USAWhite Blood Count17.6 [CFU]/mLHigh 3.8-11.6The [facility] Physician GroupComment on above:Performed By: #### DIFF CBC ####[address] [address] [place] Hepatic Panelon 53-02-7138Zfsnauv [Mass/Vol]3.1 g/dLLow3.5-5.7The [facility] Physician GroupComment on above:Performed By: #### BMP, HEPATIC ####[address] [address] USAAlbumin/Globulin [Mass ratio]1.6 {ratio}NormalThe [facility] Physician GroupComment on above: Performed By: #### BMP, HEPATIC ####[address] [address] USAALP [Catalytic activity/Vol]106 U/TLdtv55-723Xpw [facility] Physician GroupComment on above:Performed By: #### BMP, HEPATIC ####[address] [address] USAALT [Catalytic activity/Vol]114 U/LHigh7-52The [facility] Physician GroupComment on above:Performed By: #### BMP, HEPATIC ####[place] [address] USAAST [Catalytic activity/Vol]25 U/QSwhpff69-48 The [facility] Physician GroupComment on above:Performed By: #### BMP, HEPATIC ####[place] [address] [place] Bilirubin [Mass/Vol]1.2 mg/dLHigh0.3-1.0The [facility] Physician GroupComment on above:Performed By: #### BMP, HEPATIC ####[place] [address] USABilirubin,Indirect0.6 mg/dLNormHCA [facility] Hospital Physician GroupComment on above:Performed By: #### BMP, HEPATIC ####[place] [address] USABilirubin.indirect [Mass/Vol]0.60 mg/dLHigh0.03-0.18The [facility] Physician GroupComment on above: Performed By: #### BMP, HEPATIC ####[place] [address] USAGlobulin (S) [Mass/Vol]2.0 g/dLNormalThe [facility] Physician GroupComment on above:Performed By: #### BMP, HEPATIC ####[place] [address] USAProtein [Mass/Vol]5.1 g/dLLow6.4-8.9The [facility] Physician GroupComment on above:Performed By: #### BMP, HEPATIC ####[place] [address] USABasic Metabolic Panelon 71-11-8858Theaw gap [Moles/Vol]13.2 mmol/L Normal6.0-15.0The [facility] Physician GroupComment on above:Performed By: #### BMP, LDH ####[place] [address] USACalcium [Mass/Vol]8.7 mg/dLNormal8.6-10.3The [facility] Physician GroupComment on above:Performed By: #### BMP, LDH ####[address] [address] USAChloride [Moles/Vol]100 mmol/GPtlrsb51-757Oyv [facility] Physician GroupComment on above:Performed By: #### BMP, LDH ####[address] [address] USACO2 [Moles/Vol]25.4 mmol/XTvoyiq16.0-31.0The [facility] Physician GroupComment on above:Performed By: #### BMP, LDH ####[address] [address] USACreatinine [Mass/Vol]2.59 mg/dLSignificant change down0.60-1.20The [facility] Physician GroupComment on above:Performed By: #### BMP, LDH ####[address] [address] USACreatinine Clr Calc Kplurvec49.82NormalThe [facility] Physician GroupComment on above:Result Comment: PERFORMED BY:[address] [place], [place] [phone] MEDICAL JACKELYN VÁZQUEZ M.D.Performed By: #### BMP, LDH ####[address] [address] USAGFR/1.73 sq M.predicted MDRD (S/P/Bld) [Vol rate/Area]18.870 mL/min/{1.73_m2}NormalThe [facility] Physician [facility] HospitalComment on above:Performed By: #### BMP, LDH ####[address] [address] USAGlucose [Mass/Vol]88 mg/dVXyszzg13-422Blm [facility] Physician GroupComment on above:Result Comment: Random Glucose Reference Range is dependent on time and content of last meal. Glucose of more than 200 mg/dL in a nonstressed, ambulatory subject supports the diagnosis of Diabetes Mellitus. ADA recommended reference rangePerformed By: #### BMP, LDH ####[address] [address] USAPotassium [Moles/Vol] 3.6 mmol/LNormal3.5-5.1The [facility] Physician GroupComment on above:Performed By: #### BMP, LDH ####[place] [address] USASodium [Moles/Vol]135 mmol/MNxw192-516Xfs [facility] Comment on above:Performed By: #### BMP, LDH ####[place] [address] USAUrea nitrogen [Mass/Vol]44 mg/dLHigh 7-25The [facility] Physician GroupComment on above:Performed By: #### BMP, LDH ####[place] [address] USABlood Cultureon 92-51-8904Riqwjcwq identified Cx Nom (Bld)NO GROWTH 5 DAYS PERFORMED BY: [facility] [address] [place] [id number] PATHOLOGIST ORTHO TECH CARLOS VÁZQUEZ M.D.NormalThe [facility] Physician GroupComment on above: Performed By: #### CUBLD ####[place] [address] USAClostridium Difficileon 30-66-0997Gbhpxscjrmv DifficileNegativeNormalNegativeThe [facility] Physician [facility] HospitalComment on above: Order Comment: > or = to 3 loose/watery stools in the last 24 HRS? Y Is patient on promotility agents or tube feeding? NResult Comment: Testing performed by RT- PCRPERFORMED BY:[address]FORKS, [place] [phone] MEDICAL JACKELYN VÁZQUEZ M.D.Performed By: #### OB(GUAIAC), CDT ####[place] [address] USADiff and CBCon 27-50-0286JylckrjktgipLtsawfDsgiioMlr [place] Physician [facility] HospitalComment on above:Performed By: #### DIFF CBC ####[place] [address] [place] Anisocytosis Ql (Bld)ModerateNoMission Family Health Center Physician GroupComment on above:Performed By: #### DIFF CBC ####[address] [address] USABand form neutrophils/100 WBC (Bld)5 %Normal0-5The [facility] Physician GroupComment on above:Performed By: #### DIFF CBC ####[address] [address] [place] Basophils/100 WBC (Bld)2 %Normal0-2The [facility] Physician GroupComment on above:Performed By: #### DIFF CBC ####[address] [address] USAEosinophils/100 WBC (Bld)2 %Normal1-3The [facility] Physician GroupComment on above:Performed By: #### DIFF CBC ####[address] [address] USAErythrocyte distribution width (RBC) [Ratio]15.8 %High11.9-15.3The [facility] Comment on above:Performed By: #### DIFF CBC ####[address] [address] USAGiant Platelet Tally1 /100{WBC}Normal The [facility] Physician GroupComment on above:Performed By: #### DIFF CBC ####[address] [address] [facility] Hematocrit (Bld) [Volume fraction]19.6 %Off scale low34.0-46.4The [facility] Physician GroupComment on above:Result Comment: Critical value result called at 0848 on 11/11/24Performed By: #### DIFF CBC ####[address] [address] USAHemoglobin (Bld) [Mass/Vol]6.5 g/dLLow 11.8-15.4The [facility] Physician GroupComment on above:Performed By: #### DIFF CBC ####[address] [address] [facility] HypochromasiaSlightNormHCA Florida [facility] Hospital Physician GroupComment on above:Performed By: #### DIFF CBC ####[address] [address] USALymphocytes/100 WBC (Bld)4 %Alq56-74Bzp [facility] Comment on above:Performed By: #### DIFF CBC ####[address] [address] [facility] ([facility]) [Entitic mass]27.9 pgNormal 24.7-34.3The [facility] Physician GroupComment on above:Performed By: #### DIFF CBC ####[address] [address] [facility] (RBC) [Entitic vol]83.7 zYRwutjo92-677Ggz [facility] Physician GroupComment on above:Performed By: #### DIFF CBC ####[address] [address] USAMean Corpuscular HGB Conc33.3 g/uRBxiymi04.0-35.0The [facility] Physician GroupComment on above:Performed By: #### DIFF CBC ####[address] [address] [place] Metamyelocytes2 %High0-0The [facility] Physician GroupComment on above:Performed By: #### DIFF CBC ####[address] [address] USAMonocytes/100 WBC (Bld)11 %Normal2-11The [facility] Physician [facility] Comment on above:Performed By: #### DIFF CBC ####[address] [address] USANucleated Red Blood Cell2 /100{WBC} High0-0The [facility] Physician GroupComment on above:Performed By: #### DIFF CBC ####[address] [address] [place] OvalocytesSlightNormalThe [facility] Physician GroupComment on above:Performed By: #### DIFF CBC ####[address] [address] USAPlasma Cells1 %High0-0The [facility] Physician GroupComment on above: Performed By: #### DIFF CBC ####[address] [address] USAPlatelet EstimateNormalNormalNormHCA [facility] Hospital Physician GroupComment on above:Performed By: #### DIFF CBC ####[address] [address] USAPlatelet mean volume (Bld) [Entitic vol]8.3 fLNormal6.3-10.7The [facility] Physician GroupComment on above:Performed By: #### DIFF CBC ####[address] [address] USAPlatelet MorphologyNormalNormalNormHCA [facility] Physician GroupComment on above:Result Comment: PERFORMED BY:[address] ABHISHEKGaloRadhaHUI, [place] [phone] MEDICAL DIRECTORCARLOS VÁZQUEZ M.D.Performed By: #### DIFF CBC ####[address] [address] USAPlatelets (Bld) [#/Vol]246 10*3/jDKxjqvv804-522Php [facility] Physician GroupComment on above:Performed By: #### DIFF CBC ####[address] [address] USAPoikilocytosisModerateNormHCA Florida [facility] Hospital Physician GroupComment on above:Performed By: #### DIFF CBC ####[address] [address] USAPolychromasiaSlightNoMission Family Health Center Physician GroupComment on above:Performed By: #### DIFF CBC ####[address] [address] USARBC (Bld) [#/Vol]2.34 10*6/uLLow 3.60-5.00The [facility] Physician GroupComment on above:Performed By: #### DIFF CBC ####[address] [address] [place] Reactive Lymphocytes2 %Normal0-12The [facility] Physician GroupComment on above: Performed By: #### DIFF CBC ####[address] [address] USASegmented neutrophils/100 WBC (Bld)72 %Ivnp69-86Bzc [place] [facility] Physician GroupComment on above:Performed By: #### DIFF CBC ####[address] [address] [place] StomatocytesModerateNoMission Family Health Center Physician GroupComment on above: Performed By: #### DIFF CBC ####[address] [address] USATarget CellsSlightNoMission Family Health Center Physician GroupComment on above:Performed By: #### DIFF CBC ####[address] [address] USAWBC (Bld) [#/Vol]18.5 10*3/uLHigh 3.8-11.6The [facility] Physician GroupComment on above:Performed By: #### DIFF CBC ####[address] [address] [facility] White Blood Count18.5 [CFU]/mLHigh3.8-11.6The [facility] Physician GroupComment on above:Performed By: #### DIFF CBC ####[address] [address] USAHaptoglobinon 26-71-6437Uayrsryluie450 mg/dL Kssdvi38-818Wjl [facility] Physician GroupComment on above:Order Comment: TO BE DRAWN WITH REPEAT H H PER JULITO per rn julito will pull from HD cath with HH once pt has units of blood and is transfusedResult Comment: PERFORMED BY:[address] [place], [place] [phone] MEDICAL DIRECTORCARLOS VÁZQUEZ M.D.Performed By: #### HAPT ####[address] [address] USAHemogram CBC Without Diffon 74-23-6640Lqwervehdpd distribution width (RBC) [Ratio]15.7 %High11.9-15.3 [facility] Physician GroupComment on above:Performed By: #### CBCNO ####[address] [address] [facility] Hematocrit (Bld) [Volume fraction]26.0 %Low34.0-46.4The [facility] Physician GroupComment on above:Performed By: #### CBCNO ####[address] [address] USAHemoglobin (Bld) [Mass/Vol]8.8 g/dLLow 11.8-15.4The [facility] Physician GroupComment on above:Performed By: #### CBCNO ####[address] [address] USAMCH (RBC) [Entitic mass]28.3 ewUmaytu68.7-34.3The [facility] Physician GroupComment on above:Performed By: #### CBCNO ####[address] [address] USAMCV (RBC) [Entitic vol]83.7 zKCimfrl98-913Ozg [facility] Physician [facility] HospitalComment on above:Performed By: #### CBCNO ####[address] [address] USAMean Corpuscular HGB Conc33.8 g/fKShtdwf37.0-35.0The [facility] Physician [facility] HospitalComment on above: Performed By: #### CBCNO ####[address] [address] USAPlatelet mean volume (Bld) [Entitic vol]8.1 fLNormal 6.3-10.7The [facility] Physician GroupComment on above:Result Comment: PERFORMED BY:[address] [place], [place] [phone] MEDICAL DIRECTORCARLOS VÁZQUEZ M.D.Performed By: #### CBCNO ####[address] [address] [facility] Platelets (Bld) [#/Vol]243 10*3/kRHvnpob199-351Yrx [facility] Comment on above:Performed By: #### CBCNO ####[address] [address] USARBC (Bld) [#/Vol]3.11 10*6/uLLow3.60-5.00The [facility] Physician GroupComment on above:Performed By: #### CBCNO ####[address] [address] USAWhite Blood Count 21.3 [CFU]/mLHigh3.8-11.6The [facility] Physician GroupComment on above:Performed By: #### CBCNO ####[address] [address] USALDH Lactate Dehydrogenaseon 33-07-7065YIC Lactate Wcnybrdlkkgru899 U/L Cirw965-958Daw [facility] Physician GroupComment on above:Result Comment: PERFORMED BY:[address] [place]RadhaFOR[place], [place] [phone] MEDICAL DIRECTORCARLOS VÁZQUEZ M.D.Performed By: #### BMP, LDH ####[address] [address] USALeukoReduced RBCon 78-50-7539PgboyJgkicls RBCTRANSFUSED 11/11/24 1413 NormalThe [facility] Physician [facility] Centercan and CBCon 39-84-4137Suvyjlwcsisf Ql (Bld)SlightNormalThe [facility] Physician GroupComment on above:Performed By: #### SCAN CBC ####[address] [address] USABasophils (Bld) [#/Vol]0.0 10*3/uLNormal0.0-0.2The [facility] Physician GroupComment on above:Performed By: #### SCAN CBC ####[place] [address] USABasophils/100 WBC (Bld)0.1 %Normal. The [facility] Physician GroupComment on above:Performed By: #### SCAN CBC ####[address] [address] [place] Eosinophils (Bld) [#/Vol]0.3 10*3/uLNormal0.0-0.45The [facility] Comment on above:Performed By: #### SCAN CBC ####[place] [address] USAEosinophils/100 WBC (Bld)1.5 %Normal. The [facility] Physician GroupComment on above:Performed By: #### SCAN CBC ####[place] [address] [facility] Erythrocyte distribution width (RBC) [Ratio]16.2 %High11.9-15.3The [facility] Physician GroupComment on above:Performed By: #### SCAN CBC ####[place] [address] USAHematocrit (Bld) [Volume fraction]19.6 %Off scale low34.0-46.4The [facility] Physician [facility] Comment on above:Result Comment: Critical value result called at 0602 on 11/11/24 jPerformed By: #### SCAN CBC ####[place] [address] USAHemoglobin (Bld) [Mass/Vol]6.4 g/dLLow 11.8-15.4The [facility] Physician GroupComment on above:Performed By: #### SCAN CBC ####[place] [address] [place] HypochromasiaSlightNormalThe [facility] Physician GroupComment on above:Performed By: #### SCAN CBC ####[place] [address] USALymphocytes (Bld) [#/Vol]1.4 10*3/uLNormal1.00-4.8The [facility] Physician GroupComment on above:Performed By: #### SCAN CBC ####[place] [address] USALymphocytes/100 WBC (Bld)7.5 %Normal.The [facility] Physician GroupComment on above:Performed By: #### SCAN CBC ####[address] [address] USAMCH (RBC) [Entitic mass]27.5 ldKqzehc88.7-34.3The [facility] Physician GroupComment on above:Performed By: #### SCAN CBC ####[address] StreetMCV (RBC) [Entitic vol]84.1 fLNormal 80-100The [facility] Physician GroupComment on above:Performed By: #### SCAN CBC ####[place] [address] USAMean Corpuscular HGB Conc32.7 g/oQDvjnnw91.0-35.0The [facility] Physician GroupComment on above:Performed By: #### SCAN CBC ####[place] [address] USAMonocytes (Bld) [#/Vol]1.5 10*3/uLHigh0.0-0.8 The [facility] Physician GroupComment on above:Performed By: #### SCAN CBC ####[place] [address] [place] Monocytes/100 WBC (Bld)8.0 %Normal.The [facility] Physician GroupComment on above:Performed By: #### SCAN CBC ####[place] [address] USANeutrophils (Bld) [#/Vol]15.2 10*3/uLHigh1.8-7.7The [facility] Physician GroupComment on above:Performed By: #### SCAN CBC ####[place] [address] [place] Neutrophils/100 WBC (Bld)82.9 %Normal.The [facility] Physician GroupComment on above:Performed By: #### SCAN CBC ####[place] [address] USANRBC%0.1 /100{WBC}Normal0-0.5The [facility] Physician GroupComment on above:Performed By: #### SCAN CBC ####[place] [address] USAOvalocytesModerateNormHCA Florida Citrus Hospital Physician GroupComment on above:Performed By: #### SCAN CBC ####[address] [address] [facility] Platelet EstimateNormalNormalNoMission Family Health Center Physician GroupComment on above:Performed By: #### SCAN CBC ####[address] [address] USAPlatelet mean volume (Bld) [Entitic vol]8.5 fLNormal 6.3-10.7The [facility] Physician GroupComment on above:Performed By: #### SCAN CBC ####[address] [address] [facility] Platelet MorphologyNormalNormalNoMission Family Health Center Physician GroupComment on above:Result Comment: PERFORMED BY:[address] [place], [place] [phone] MEDICAL DIRECTORCARLOS VÁZQUEZ M.D.Performed By: #### SCAN CBC ####[address] [address] USAPlatelets (Bld) [#/Vol]231 10*3/fTWlkdgx054-650Uof [facility] Physician GroupComment on above:Performed By: #### SCAN CBC ####[address] [address] [facility] PoikilocytosisModerateNoMission Family Health Center Physician GroupComment on above: Performed By: #### SCAN CBC ####[address] [address] USAPolychromasiaSlightCedars Medical Center Physician GroupComment on above:Performed By: #### SCAN CBC ####[address] [address] USARBC (Bld) [#/Vol]2.33 10*6/uLLow 3.60-5.00The [facility] Physician GroupComment on above:Performed By: #### SCAN CBC ####[address] [address] [place] StomatocytesModerateNoMission Family Health Center Physician GroupComment on above: Performed By: #### SCAN CBC ####[place] [address] USATarget CellsSlightNoMission Family Health Center Physician GroupComment on above:Performed By: #### SCAN CBC ####[place] [address] USAWBC (Bld) [#/Vol]18.4 10*3/uLHigh 3.8-11.6The [facility] Physician GroupComment on above:Performed By: #### SCAN CBC ####[place] [address] [facility] White Blood Count18.4 [CFU]/mLHigh3.8-11.6The [facility] Physician GroupComment on above:Performed By: #### SCAN CBC ####[place] [address] USAStool Occult Blood (Guaiac)on 76-62-6844Sjmsa Occult Blood (Guaiac)NormalThe [facility] Physician GroupComment on above: Performed By: #### OB(GUAIAC), CDT ####[place] [address] USAType and Screenon 98-87-0707NFR and Rh group Nom (Bld)Blood group A Rh(D) positiveNoMission Family Health Center Physician GroupComment on above:Order Comment: Transfuse now? Y Number of units to transfuse now? 2Result Comment: PERFORMED BY:[place] [address] [place] [place], [place] [phone] MEDICAL DIRECTORCARLOS VÁZQUEZ M.D. Vancomycin,Randomon 91-83-7962Ybeyoneeac,Emiisf89.9High5.0-20.0The [facility] Physician GroupComment on above:Order Comment: Date of last dose?: [id number] Time of last dose?: 2199Result Comment: Last dose: -PERFORMED BY:[place] [address] [place] [place], [place] [phone] MEDICAL DIRECTORCARLOS VÁZQUEZ M.D.Performed By: #### VANCR ####[facility] [place] [address] USAAerobic Cultureon 11-10-2024 Aerobic CultureNoMission Family Health Center Physician GroupComment on above:Performed By: #### AERC, GS ####[place] [address] [place] [address] USAArterial Blood Gason 15-76-2168ITZ Base Excess0.8 mmol/LNormal-3.0-3.0 The [facility] Physician GroupComment on above:Performed By: #### ABG ####Point of Care testing,ABG Frac Inspired O230 %NormalThe [facility]ician [facility] Comment on above:Performed By: #### ABG ####Point of Care testing,ABG Oxygen Content5.8 mmol/LLow6.6-9.7The [facility] Physician GroupComment on above: Performed By: #### ABG ####Point of Care testing,ABG Oxygen Gkpsopeupr48.9 % Lgtpqq89.0-100.0The [facility] Physician GroupComment on above:Performed By: #### ABG ####Point of Care testing,ABG YZU675.1 mm[Hg]Xgokju52.0-45.0The [facility] Physician GroupComment on above:Performed By: #### ABG ####Point of Care testing,ABG RBFQ0WpewqpIgvHCA Florida Citrus Hospital Physician GroupComment on above:Performed By: #### ABG ####Point of Care testing,ABG PH7.29Hifwau7.35-7.45The [facility] Physician GroupComment on above:Performed By: #### ABG ####Point of Care testing,ABG PO281.4 mm[Hg]Mnqwce43.0-100.0The [facility] Physician GroupComment on above:Performed By: #### ABG ####Point of Care testing,ABG TV450 mLNormalThe [facility] Physician GroupComment on above:Performed By: #### ABG ####Point of Care testing,CO2 [Moles/Vol]25.9 mmol/YBasquo75.0-27.0The [facility] Physician GroupComment on above:Performed By: #### ABG ####Point of Care testing,HCO3 (Bld) [Moles/Vol]24.8 mmol/GZcznua89.0-29.0The [facility] Physician GroupComment on above:Performed By: #### ABG ####Point of Care testing,Respiratory Critical NormalThe [facility] Physician GroupComment on above:Result Comment: Critical Value called on: 11/10/2024 at 05:26PERFORMED BY:[facility] [place], [place] [phone] MEDICAL DIRECTORCARLOS VÁZQUEZ M.D.Performed By: #### ABG ####Point of Care testing, VBG Draw [facility] Physician GroupComment on above: Performed By: #### ABG ####Point of Care testing,Bacterial susceptibility panel (Isol)on 10-44-7433vvmnVTEQpceq [Susc]<=1SusceptibleSusceptible <=2 , Intermediate >2 , Resistant >7[facility] HospitalComg[facility] on above:Order Comment: [facility]ing Facility[facility] Address: [address] [place], [place] [address]Performed By: #### 10994-7, 50165-7 #### [facility] CLIA [id number] [address] [place] [address] [place] OF AMERICAMinocycline [Susc]<=1 SusceptibleSusceptible <=4 , Intermediate >4 , Resistant >8[facility] HospitalComg[facility] hospital on above:Order Comment: Ordering Facility: [facility] Address: [address] [place], [place] [address]Performed By: #### 73337-9, 71339-2 #### [facility] CLIA [id number] [address] [place] [address] [place] OF AMERICABacterial susceptibility panel STEPHANIE (Isol)on 83-57-0261Dgggmtfvhcqil identified Cx Nom (Unsp spec)[id number] AbnormalMarion HospitalComment on above:Order Comment: Specimen Type: MICROBIAL ISOLATE Ordering Facility: [facility] Address: [address] [place] [phone] Comment: Stenotrophomonas maltophilia Identification performed by client.Performed By: #### 62923-3, 77389-0 #### [facility] CLIA [id number] [address] [place] [address] [address]ETBasi Metabolic Panelon 55-10-6139Lpbcm gap [Moles/Vol]13.3 mmol/LNormal6.0-15.0The [facility] Physician GroupComment on above:Performed By: #### BMP ####[place] [address] USACalcium [Mass/Vol]8.8 mg/dLNormal 8.6-10.3The [facility] Physician GroupComment on above:Performed By: #### BMP ####[place] [address] [place] Chloride [Moles/Vol]100 mmol/XSzzwpt33-390Vys [facility] Physician GroupComment on above:Performed By: #### BMP ####[place] [address] USACO2 [Moles/Vol]25.3 mmol/CSskajo79.0-31.0The [facility] Physician GroupComment on above:Performed By: #### BMP ####[place] [address] USACreatinine [Mass/Vol] 2.05 mg/dLSignificant change down0.60-1.20The [facility] Physician GroupComment on above:Performed By: #### BMP ####[place] [address] USACreatinine Clr Calc Quzadhhv75.48NormalThe [facility] Physician GroupComment on above:Result Comment: PERFORMED BY:[address] [place], [place] [phone] MEDICAL JACKELYN VÁZQUEZ M.D.Performed By: #### BMP ####[address] [address] USAGFR/1.73 sq M.predicted MDRD (S/P/Bld) [Vol rate/Area]24.981 mL/min/{1.73_m2}NormalThe [facility] Physician GroupComment on above:Performed By: #### BMP ####[address] [address] USAGlucose [Mass/Vol]109 mg/xMUiew74-839 The [facility] Physician GroupComment on above:Result Comment: Random Glucose Reference Range is dependent on time and content of last meal. Glucose of more than 200 mg/dL in a nonstressed, ambulatory subject supports the diagnosis of Diabetes Mellitus. ADA recommended reference rangePerformed By: #### BMP ####[address] [address] [place] Potassium [Moles/Vol]3.6 mmol/LNormal3.5-5.1The [facility] Physician GroupComment on above:Performed By: #### BMP ####[address] [address] USASodium [Moles/Vol]135 mmol/LSignificant change down 136-145The [facility] Physician GroupComment on above:Performed By: #### BMP ####[address] [address] USAUrea nitrogen [Mass/Vol]29 mg/dLSignificant change down7-25The [facility] Physician GroupComment on above:Performed By: #### BMP ####[address] [address] USADiff and CBCon 39-02-1505Azhmmduhnzyf Ql (Bld)SlightNormalThe [facility] Physician GroupComment on above:Performed By: #### DIFF CBC ####[address] [address] USABand form neutrophils/100 WBC (Bld)12 %High0-5The [facility] Physician GroupComment on above:Performed By: #### DIFF CBC ####[address] [address] USAEosinophils/100 WBC (Bld)1 %Normal1-3 The [facility] Physician GroupComment on above:Performed By: #### DIFF CBC ####[address] [address] [facility] Erythrocyte distribution width (RBC) [Ratio]16.3 %High11.9-15.3The [facility] Physician GroupComment on above:Performed By: #### DIFF CBC ####[address] [address] USAHematocrit (Bld) [Volume fraction]25.8 %Low34.0-46.4The [facility] Physician GroupComment on above:Performed By: #### DIFF CBC ####[address] [address] USAHemoglobin (Bld) [Mass/Vol]8.6 g/dLLow11.8-15.4The [facility] Physician GroupComment on above:Performed By: #### DIFF CBC ####[address] [address] [place] HypochromasiaModerateNormHCA Florida Citrus Hospital Physician GroupComment on above: Performed By: #### DIFF CBC ####[address] [address] USALarge PlateletsSlightNoMission Family Health Center Physician GroupComment on above:Result Comment: PERFORMED BY:[place] [address] [address] [place], [place] [phone] MEDICAL JACKELYN VÁZQUEZ M.D.Performed By: #### DIFF CBC ####[address] [address] USALymphocytes/100 WBC (Bld)3 % Swr24-47Ppe [facility] Physician GroupComment on above:Performed By: #### DIFF CBC ####[address] [address] USAMCH (RBC) [Entitic mass]27.6 wyVxwjrn44.7-34.3The [facility] Physician GroupComment on above:Performed By: #### DIFF CBC ####[address] [address] USAMCV (RBC) [Entitic vol]83.0 aLJvogto58-294Ofl [facility] Physician GroupComment on above:Performed By: #### DIFF CBC ####[address] [address] USAMean Corpuscular HGB Conc33.3 g/jWPkalmk18.0-35.0The [facility] Physician GroupComment on above:Performed By: #### DIFF CBC ####[address] [address] USAMetamyelocytes1 %High0-0The [facility] Physician GroupComment on above:Performed By: #### DIFF CBC ####[address] [address] USAMonocytes/100 WBC (Bld)8 %Normal2-11The [facility] Physician GroupComment on above:Performed By: #### DIFF CBC ####[address] [address] USAPlasma Cells1 %High0-0The [facility] Physician GroupComment on above: Performed By: #### DIFF CBC ####[address] [address] USAPlatelet EstimateNormalNormalNormalThe [facility] Physician GroupComment on above:Performed By: #### DIFF CBC ####[address] [address] USAPlatelet mean volume (Bld) [Entitic vol]8.2 fLNormal6.3-10.7The [facility] Physician GroupComment on above:Result Comment: PERFORMED BY:[address] [place] [address] [address] [place], [place] [phone] MEDICAL DIRECTORCARLOS VÁZQUEZ M.D.Performed By: #### DIFF CBC ####[address] [address] USAPlatelets (Bld) [#/Vol]246 10*3/aXTdsxsi604-994Wjc [facility] Physician GroupComment on above:Performed By: #### DIFF CBC ####[address] [address] [place] PoikilocytosisSCrawley Memorial Hospital Physician GroupComment on above: Performed By: #### DIFF CBC ####[address] [address] USAPolychromasiaSCrawley Memorial Hospital Physician GroupComment on above:Performed By: #### DIFF CBC ####[address] [address] USAPromyelocytes1 %High0-0The [facility] Physician GroupComment on above:Performed By: #### DIFF CBC ####[address] [address] USARBC (Bld) [#/Vol]3.11 10*6/uLLow3.60-5.00The [facility] Physician GroupComment on above:Performed By: #### DIFF CBC ####[address] [address] USARouleauxSCrawley Memorial Hospital Physician GroupComment on above: Performed By: #### DIFF CBC ####[address] [address] USASegmented neutrophils/100 WBC (Bld)74 %Dpry73-56Aql [facility] Physician GroupComment on above:Performed By: #### DIFF CBC ####[address] [address] [place] StomatocytesSjackson county regional health centerNoMission Family Health Center Physician GroupComment on above:Performed By: #### DIFF CBC ####[address] [address] USAWBC (Bld) [#/Vol]15.7 10*3/uLHigh3.8-11.6The [facility] Physician GroupComment on above:Performed By: #### DIFF CBC ####[address] [address] USAWhite Blood Count15.7 [CFU]/mLHigh 3.8-11.6The [facility] Physician [facility] HospitalComment on above:Performed By: #### DIFF CBC ####[place] [address] [place] Glucose Poct Glucometerson 83-68-1011Ttuqxdx1Zyf4: Cleaned MeterNormEating Recovery Center a Behavioral HospitalComment on above:Result Comment: PERFORMED BY:[address] [place], [place] [phone] MEDICAL DIRECTORCARLOS VÁZQUEZ M.D.Performed By: #### GLULS ####Point of Care testing,Glucose [Mass/Vol]86 mg/dLNoSelect Medical Specialty Hospital - TrumbullComment on above:Result Comment: Random Glucose Reference Range is dependent on time and content of last meal. Glucose of more than 200 mg/dL in a nonstressed, ambulatory subject supports the diagnosis of Diabetes Mellitus.Performed By: #### GLULS ####Point of Care testing,Gram Stainon 67-48-9592Xhdpdjszmdd observation Gram stain Nom (Unsp spec)Gram Stain Result 2+ White Blood Cells 1+ Epithelial Cells 2+ Yeast Like Elements PERFORMED BY: [facility] [address] [place] [address] PATHOLOGIST ORTHO TECH CARLOS VÁZQUEZ M.D.NormalLackey Memorial HospitalComment on above: Performed By: #### AERC, GS ####[address] [address] USAISTAT Glucose Pocon 83-53-4782Asjdegf [Mass/Vol]100 mg/dMRrjcii16-349Zvu [place] Physician [facility] Memorial HospitalComment on above:Result Comment: PERFORMED BY:[address] [place], [place] [phone] MEDICAL DIRECTORCARLOS VÁZQUEZ M.D.Performed By: #### ISGLU ####Point of Care testing,Glucose [Mass/Vol]107 mg/dRWzng37-178Cph [place] Physician [facility] HospitalComment on above:Result Comment: PERFORMED BY:[address] [place], [place] [phone] MEDICAL DIRECTORCARLOS VÁZQUEZ M.D.Performed By: #### ISGLU ####Point of Care testing,XR chest 1V portableon 14-44-2327DQ chest 1V portableNoSelect Medical Specialty Hospital - TrumbullArterial Blood Gason 19-71-2493DFE Base Excess-1.5 mmol/LNormal-3.0-3.0The [facility] Physician GroupComment on above:Performed By: #### ABG ####Point of Care testing,ABG Frac Inspired O230 %NormalSanta Rosa Medical Center Physician [facility] Memorial HospitalComment on above:Performed By: #### ABG ####Point of Care testing,ABG Oxygen Content5.9 mmol/LLow6.6-9.7The [facility] Physician Group Comment on above:Performed By: #### ABG ####Point of Care testing,ABG Oxygen Xbfsivnyqh66.8 %Fzbymw15.0-100.0The [facility] Physician GroupComment on above: Performed By: #### ABG ####Point of Care testing,ABG OCJ949.8 mm[Hg]Off scale low35.0-45.0[facility] Physician GroupComment on above:Performed By: #### ABG ####Point of Care testing,ABG CMHW5MtwdkmLjd [facility] Physician GroupComment on above:Performed By: #### ABG ####Point of Care testing,ABG PH7.50High 7.35-7.45[facility] Physician GroupComment on above:Performed By: #### ABG ####Point of Care testing,ABG MP1771.7 mm[Hg]High80.0-100.0[facility] Physician [facility] Memorial HospitalComment on above:Performed By: #### ABG ####Point of Care testing,ABG TV450 mLNormalThe [facility] Physician GroupComment on above: Performed By: #### ABG ####Point of Care testing,CO2 [Moles/Vol]21.9 mmol/LLow 23.0-27.0[facility] Physician GroupComment on above:Performed By: #### ABG ####Point of Care testing,HCO3 (Bld) [Moles/Vol]21.0 mmol/LLow23.0-29.0[facility] Physician GroupComment on above:Performed By: #### ABG ####Point of Care testing,Respiratory CriticalCedars Medical Center Physician GroupComment on above:Result Comment: Critical Value called on: 11/09/2024 at 20:53PERFORMED BY:[facility] [place], [place] [phone] MEDICAL DIRECTORCARLOS VÁZQUEZ M.D.Performed By: #### ABG ####Point of Care testing,VBG Draw SiteRight RadialCedars Medical Center Physician GroupComment on above:Performed By: #### ABG ####Point of Care testing,ABG Base Excess-9.3 mmol/LLow-3.0-3.0[facility] Comment on above:Performed By: #### ABG ####Point of Care testing,ABG Frac Inspired O230 %NormalThe [facility] Physician GroupComment on above:Performed By: #### ABG ####Point of Care testing,ABG Oxygen Content5.8 mmol/LLow6.6-9.7[facility] Physician GroupComment on above:Performed By: #### ABG ####Point of Care testing,ABG Oxygen Tznlbeixjc28.4 %Fhmgtk58.0-100.0[facility] Physician GroupComment on above:Performed By: #### ABG ####Point of Care testing,ABG PCO2 33.9 mm[Hg]Low35.0-45.0[facility] Physician GroupComment on above:Performed By: #### ABG ####Point of Care testing,ABG FWWH0DwygxnUjqHCA [facility] Physician GroupComment on above:Performed By: #### ABG ####Point of Care testing,ABG PH 7.30Low7.35-7.45[facility] Physician GroupComment on above:Performed By: #### ABG ####Point of Care testing,ABG KI3765.4 mm[Hg]Off scale high80.0-100.0[facility] Physician GroupComment on above:Performed By: #### ABG ####Point of Care testing,ABG TV450 mLNormalThe [facility] Physician GroupComment on above: Performed By: #### ABG ####Point of Care testing,CO2 [Moles/Vol]17.3 mmol/LLow 23.0-27.0[facility] Physician GroupComment on above:Performed By: #### ABG ####Point of Care testing,HCO3 (Bld) [Moles/Vol]16.2 mmol/LLow23.0-29.0[facility] Physician GroupComment on above:Performed By: #### ABG ####Point of Care testing,Respiratory CriticalNoMission Family Health Center Physician GroupComment on above:Result Comment: Critical Value called on: 11/09/2024 at 13:18PERFORMED BY:[address] [place] [address] [place], [place] [phone] MEDICAL DIRECTORCARLOS VÁZQUEZ M.D.Performed By: #### ABG ####Point of Care testing,Set Respiratory Mdnf27JvvrwyNrn[address] [place] [address] Physician GroupComment on above:Performed By: #### ABG ####Point of Care testing,VBG Draw SiteArtlineCedars Medical Center Physician GroupComment on above: Performed By: #### ABG ####Point of Care testing,Ventilator ModeACCedars Medical Center Physician GroupComment on above:Performed By: #### ABG ####Point of Care testing,ABG Base Excess-8.2 mmol/LLow-3.0-3.0[facility] Comment on above:Order Comment: drawn from HD catheter by RNPerformed By: #### ABG ####Point of Care testing,ABG Frac Inspired O230 %NormalThe [facility] Physician GroupComment on above:Order Comment: drawn from HD catheter by RN Performed By: #### ABG ####Point of Care testing,ABG Oxygen Content4.8 mmol/LLow 6.6-9.7[facility] Physician GroupComment on above:Order Comment: drawn from HD catheter by RNPerformed By: #### ABG ####Point of Care testing,ABG Oxygen Ovezaxjydq58.3 %Low95.0-100.0[facility] Physician GroupComment on above:Order Comment: drawn from HD catheter by RNPerformed By: #### ABG ####Point of Care testing,ABG TNO606.3 mm[Hg]Umreou04.0-45.0[facility] Physician GroupComment on above:Order Comment: drawn from HD catheter by RNPerformed By: #### ABG ####Point of Care testing,ABG FCFL4NfslyaLqrMission Family Health Center Physician GroupComment on above:Order Comment: drawn from HD catheter by RNPerformed By: #### ABG ####Point of Care testing,ABG PH7.29Low7.35-7.45[facility] Comment on above:Order Comment: drawn from HD catheter by RNPerformed By: #### ABG ####Point of Care testing,ABG PO250.1 mm[Hg]Low80.0-100.0[facility] Physician GroupComment on above:Order Comment: drawn from HD catheter by RN Performed By: #### ABG ####Point of Care testing,ABG TV450 mLNormalThe [facility] Physician GroupComment on above:Order Comment: drawn from HD catheter by RN Performed By: #### ABG ####Point of Care testing,CO2 [Moles/Vol]19.0 mmol/LLow 23.0-27.0[facility] Physician GroupComment on above:Order Comment: drawn from HD catheter by RNPerformed By: #### ABG ####Point of Care testing,HCO3 (Bld) [Moles/Vol]17.8 mmol/LLow23.0-29.0[facility] Physician GroupComment on above: Order Comment: drawn from HD catheter by RNPerformed By: #### ABG ####Point of Care testing,Respiratory CriticalNoMission Family Health Center Physician GroupComment on above:Order Comment: drawn from HD catheter by RNResult Comment: Critical Value called on: 11/09/2024 at 13:16PERFORMED BY:[facility] [place], [place] [phone] MEDICAL DIRECTORCARLOS VÁZQUEZ M.D.Performed By: #### ABG ####Point of Care testing,Set Respiratory Jzir43NvnmaiYitCedars Medical Center Physician GroupComment on above:Order Comment: drawn from HD catheter by RNPerformed By: #### ABG ####Point of Care testing,VBG Draw SiteOtherCedars Medical Center Physician GroupComment on above:Order Comment: drawn from HD catheter by RNPerformed By: #### ABG ####Point of Care testing, Ventilator ModeACCedars Medical Center Physician GroupComment on above:Order Comment: drawn from HD catheter by RNPerformed By: #### ABG ####Point of Care testing,ABG Base Excess-8.0 mmol/LLow-3.0-3.0[facility]ician [facility] Comment on above:Performed By: #### ABG ####Point of Care testing,ABG Frac Inspired O230 %NormalThe [facility] Physician GroupComment on above:Performed By: #### ABG ####Point of Care testing,ABG Oxygen Content5.5 mmol/LLow6.6-9.7[facility] Physician GroupComment on above:Performed By: #### ABG ####Point of Care testing,ABG Oxygen Scvfkvtrgy10.8 %Usejxi90.0-100.0[facility] Physician GroupComment on above:Performed By: #### ABG ####Point of Care testing,ABG PCO2 35.6 mm[Hg]Fwzrpj59.0-45.0[facility] Physician GroupComment on above: Performed By: #### ABG ####Point of Care testing,ABG SDKE5NreznxZetMission Family Health Center Physician GroupComment on above:Performed By: #### ABG ####Point of Care testing,ABG PH7.31Low7.35-7.45[facility] Physician GroupComment on above: Performed By: #### ABG ####Point of Care testing,ABG RI2189.3 mm[Hg]High 80.0-100.0[facility] Physician GroupComment on above:Performed By: #### ABG ####Point of Care testing,ABG TV450 mLNormalThe [facility] Physician GroupComment on above:Performed By: #### ABG ####Point of Care testing,CO2 [Moles/Vol]18.6 mmol/LLow23.0-27.0[facility] Physician GroupComment on above:Performed By: #### ABG ####Point of Care testing,HCO3 (Bld) [Moles/Vol]17.5 mmol/LLow23.0-29.0 [facility] Physician GroupComment on above:Performed By: #### ABG ####Point of Care testing,Respiratory CriticalNoMission Family Health Center Physician GroupComment on above:Result Comment: Critical Value called on: 11/09/2024 at 06:07PERFORMED BY:[address] [place], [place] [phone] MEDICAL DIRECTORCARLOS VÁZQUEZ M.D.Performed By: #### ABG ####Point of Care testing,Set Respiratory Xagy65QeyrgyYveCedars Medical Center Physician GroupComment on above:Performed By: #### ABG ####Point of Care testing,VBG Draw SiteArtlineCedars Medical Center Physician GroupComment on above: Performed By: #### ABG ####Point of Care testing,Ventilator ModeACCedars Medical Center Physician GroupComment on above:Performed By: #### ABG ####Point of Care testing,Basic Metabolic Panelon 69-95-1490Ppysg gap [Moles/Vol]19.1 mmol/L High6.0-15.0[facility] Physician GroupComment on above:Performed By: #### BMP ####[address] [address] [facility] Calcium [Mass/Vol]9.2 mg/dLNormal8.6-10.3[facility] Physician GroupComment on above:Performed By: #### BMP ####[address] [address] USAChloride [Moles/Vol]106 mmol/TZaukvi22-142Trj [facility] Physician GroupComment on above:Performed By: #### BMP ####[address] [address] USACO2 [Moles/Vol]19.2 mmol/LLow21.0-31.0[facility] Physician GroupComment on above:Performed By: #### BMP ####[address] [address] USACreatinine [Mass/Vol]3.48 mg/dLHigh0.60-1.20[facility] Physician Group Comment on above:Performed By: #### BMP ####[place] [address] USACreatinine Clr Calc Rsgydnhu46.92NormalThCascade Medical Center Physician [facility] Memorial HospitalComment on above:Result Comment: PERFORMED BY:[address] [place], [place] [phone] MEDICAL JACKELYN VÁZQUEZ M.D.Performed By: #### BMP ####[address] [address] USAGFR/1.73 sq M.predicted MDRD (S/P/Bld) [Vol rate/Area]13.238 mL/min/{1.73_m2}NormalThe [facility] Physician [facility] HospitalComment on above:Performed By: #### BMP ####[place] [address] USAGlucose [Mass/Vol]113 mg/yLXyni12-963Han [facility] Physician [facility] HospitalComment on above:Result Comment: Random Glucose Reference Range is dependent on time and content of last meal. Glucose of more than 200 mg/dL in a nonstressed, ambulatory subject supports the diagnosis of Diabetes Mellitus. ADA recommended reference rangePerformed By: #### BMP ####[address] [address] USAPotassium [Moles/Vol]3.3 mmol/LLow3.5-5.1[facility] Physician GroupComment on above:Performed By: #### BMP ####[address] [address] USASodium [Moles/Vol]141 mmol/ACmwjcr913-892Mcw [facility] Physician GroupComment on above:Performed By: #### BMP ####[address] [address] USAUrea nitrogen [Mass/Vol]62 mg/dLHigh7-25The [facility] Physician GroupComment on above: Performed By: #### BMP ####[place] [address] USADiff and CBCon 30-98-7994Vicyscwfafwx Ql (Bld)Slight NormalThe [facility] Physician GroupComment on above:Performed By: #### DIFF CBC ####[place] [address] USABand form neutrophils/100 WBC (Bld)2 %Normal0-5The [facility] Physician GroupComment on above:Performed By: #### DIFF CBC ####[place] [address] USAErythrocyte distribution width (RBC) [Ratio] 16.7 %High11.9-15.3The [facility] Physician GroupComment on above:Performed By: #### DIFF CBC ####[place] [address] USAHematocrit (Bld) [Volume fraction]25.0 %Low34.0-46.4The [facility] Physician GroupComment on above:Performed By: #### DIFF CBC ####[address] [address] USAHemoglobin (Bld) [Mass/Vol]8.2 g/dLLow11.8-15.4The [facility] Physician GroupComment on above: Performed By: #### DIFF CBC ####[address] [address] USAHypochromasiaModerateNormalThe [facility] Physician GroupComment on above:Performed By: #### DIFF CBC ####[place] [address] USALarge PlateletsSlightNormalThe [facility] Physician GroupComment on above:Result Comment: PERFORMED BY:[address] [place], [place] [phone] MEDICAL DIRECTORCARLOS VÁZQUEZ M.D.Performed By: #### DIFF CBC ####[address] [address] USALymphocytes/100 WBC (Bld)5 %Oyn91-80Sng [facility] Physician GroupComment on above:Performed By: #### DIFF CBC ####[address] [address] USAMCH (RBC) [Entitic mass]27.5 vsFpjuas82.7-34.3The [facility] Physician Group Comment on above:Performed By: #### DIFF CBC ####[address] [address] USAMCV (RBC) [Entitic vol]83.5 fLNormal 80-100The [facility] Physician GroupComment on above:Performed By: #### DIFF CBC ####[address] [address] USAMean Corpuscular HGB Conc33.0 g/mZCequhk43.0-35.0The [facility] Physician GroupComment on above:Performed By: #### DIFF CBC ####[address] [address] USAMetamyelocytes7 %High0-0The [facility] Physician GroupComment on above:Performed By: #### DIFF CBC ####[address] [address] USAMonocytes/100 WBC (Bld)8 %Normal2-11The [facility] Physician GroupComment on above:Performed By: #### DIFF CBC ####[address] [address] USAMyelocytes6 %High0-0The [facility] Physician GroupComment on above: Performed By: #### DIFF CBC ####[address] [address] USANucleated Red Blood Cell1 /100{WBC}High0-0The [facility] Physician GroupComment on above:Performed By: #### DIFF CBC ####[place] [address] [place] OvalocytesSlightNoMission Family Health Center Physician GroupComment on above:Performed By: #### DIFF CBC ####[place] [address] USAPlatelet EstimateNormalNormalNormSelect Medical Specialty Hospital - Southeast Ohioe [facility] Physician Group Comment on above:Performed By: #### DIFF CBC ####[place] [address] USAPlatelet mean volume (Bld) [Entitic vol]8.0 fLNormal6.3-10.7The [facility] Physician GroupComment on above:Performed By: #### DIFF CBC ####[place] [address] USAPlatelets (Bld) [#/Vol]212 10*3/wZJznoxe401-302Apl [facility] Physician GroupComment on above:Performed By: #### DIFF CBC ####[place] [address] USAPoikilocytosisSlight NormalSanta Rosa Medical Center Physician GroupComment on above:Performed By: #### DIFF CBC ####[place] [address] [place] PolychromasiaSlightNormHCA Florida Citrus Hospital Physician GroupComment on above:Performed By: #### DIFF CBC ####[place] [address] USAPromyelocytes2 %High0-0[facility] Physician GroupComment on above:Performed By: #### DIFF CBC ####[place] [address] USARBC (Bld) [#/Vol]2.99 10*6/uLLow3.60-5.00[facility] Physician GroupComment on above:Performed By: #### DIFF CBC ####[address] [address] [facility] Segmented neutrophils/100 WBC (Bld)72 %Nijz81-96Pfh [facility] Physician [facility] Comment on above:Performed By: #### DIFF CBC ####[address] [address] USAStomatocytesSlightNormalThe [facility] Physician [facility] HospitalComment on above:Performed By: #### DIFF CBC ####[place] [address] USAWBC (Bld) [#/Vol]12.6 10*3/uLHigh3.8-11.6The [facility] Physician GroupComment on above:Performed By: #### DIFF CBC ####[place] [address] USAWhite Blood Count12.6 [CFU]/mLHigh3.8-11.6The [facility] Physician [facility] Comment on above:Performed By: #### DIFF CBC ####[place] [address] USAISTAT Glucose Pocon 09-52-1861Fcscjab [Mass/Vol]92 mg/pQCpjjgj29-862Ige [facility] Physician GroupComment on above: Result Comment: PERFORMED BY:[place] [place] [address] [address]YDERRadhaHUIM[place], [place] [phone] MEDICAL JACKELYN VÁZQUEZ M.D.Performed By: #### ISGLU ####Point of Care testing,Glucose [Mass/Vol]103 mg/zWQoqvpz77-770Aew [facility] Physician GroupComment on above:Result Comment: PERFORMED BY:[address] [place], [place] [phone] MEDICAL JACKELYN VÁZQUEZ M.D.Performed By: #### ISGLU ####Point of Care testing,Triglycerideson 55-75-7887Swyfrtbzqfcy [Mass/Vol]212 mg/gDExbq13-986Ynp [facility] Physician GroupComment on above: Result Comment: TRIG ATP III CLASSIFICATION TRIG less than 150 mg/dL Normal TRIG 150-199 mg/dL Borderline high TRIG 200-500 mg/dL High TRIG greater than 500 mg/dL Very high Standard traceable to the Center for Disease Conrtrol and Prevention (CDC) test method.PERFORMED BY:[place] [place] [place], [place] [phone] MEDICAL JACKELYN VÁZQUEZ M.D.Performed By: #### TRIG ####[address] [address] USAVancomycin,Randomon 11-09-2024 Vancomycin,Xdmhgg95.3Ufvbpk8.0-20.0The [facility] Physician GroupComment on above:Order Comment: Date of last dose?: [id number] Time of last dose?: 99Result Comment: Last dose: -PERFORMED BY:[address] [place], [place] [phone] MEDICAL JACKELYN VÁZQUEZ M.D.Performed By: #### VANCR ####[address] [address] USAXR chest 1V portableon 82-46-1645TW chest 1V portableNoOhio Valley Surgical Hospital GroupArterial Blood Gason 75-25-3615LLI Base Excess-6.4 mmol/LLow-3.0-3.0The [facility] Physician GroupComment on above: Performed By: #### ABG ####Point of Care testing,ABG Frac Inspired O230 %Normal The [facility] Physician GroupComment on above:Performed By: #### ABG ####Point of Care testing,ABG Oxygen Content5.8 mmol/LLow6.6-9.7The [facility] Physician GroupComment on above:Performed By: #### ABG ####Point of Care testing,ABG Oxygen Fqkucmseye57.7 %Hzhygf03.0-100.0The [facility] Physician GroupComment on above:Performed By: #### ABG ####Point of Care testing,ABG UHP689.7 mm[Hg]Normal 35.0-45.0The [facility] Physician GroupComment on above:Performed By: #### ABG ####Point of Care testing,ABG TZAS2ZgvcfyYzbHCA Florida Citrus Hospital Physician GroupComment on above:Performed By: #### ABG ####Point of Care testing,ABG PH7.33Low7.35-7.45 The [facility] Physician GroupComment on above:Performed By: #### ABG ####Point of Care testing,ABG XI1044.8 mm[Hg]High80.0-100.0The [facility] Physician [facility] Comment on above:Performed By: #### ABG ####Point of Care testing,ABG TV450 mL NormalThe [facility] Physician GroupComment on above:Performed By: #### ABG ####Point of Care testing,CO2 [Moles/Vol]20.0 mmol/LLow23.0-27.0The [facility] Physician GroupComment on above:Performed By: #### ABG ####Point of Care testing,HCO3 (Bld) [Moles/Vol]18.9 mmol/LLow23.0-29.0The [facility] Physician GroupComment on above:Performed By: #### ABG ####Point of Care testing, Respiratory CriticalNoMission Family Health Center Physician GroupComment on above:Result Comment: Critical Value called on: 11/08/2024 at 06:38PERFORMED BY:[place] [address] [place], [place] [phone] MEDICAL DIRECTORCARLOS VÁZQUEZ M.D.Performed By: #### ABG ####Point of Care testing,Set Respiratory Owje51LcbhptQiuMission Family Health Center Physician [facility] HospitalComment on above:Performed By: #### ABG ####Point of Care testing,VBG Draw SiteArtline NormalThe [facility] Physician GroupComment on above:Performed By: #### ABG ####Point of Care testing,Ventilator ModeACNoMission Family Health Center Physician [facility] Comment on above:Performed By: #### ABG ####Point of Care testing,Basic Metabolic Panelon 25-54-8511Oecrx gap [Moles/Vol]16.8 mmol/LHigh6.0-15.0The [facility] Physician GroupComment on above:Performed By: #### BMP ####[address] [address] USACalcium [Mass/Vol]8.7 mg/dLNormal8.6-10.3The [facility] Physician GroupComment on above:Performed By: #### BMP ####[address] [address] USAChloride [Moles/Vol]107 mmol/OLtsprl34-997Kec [facility] Physician [facility] Comment on above:Performed By: #### BMP ####[address] [address] USACO2 [Moles/Vol]19.4 mmol/LLow21.0-31.0The [facility] Physician GroupComment on above:Performed By: #### BMP ####[address] [address] USACreatinine [Mass/Vol] 3.21 mg/dLHigh0.60-1.20The [facility] Physician GroupComment on above:Performed By: #### BMP ####[place] [address] USACreatinine Clr Calc Ajudmygk41.18NormalThCascade Medical Center Physician [facility] Comment on above:Result Comment: PERFORMED BY:[address] [place]ARTINEZWARSA[place], [place] [phone] MEDICAL JACKELYN VÁZQUEZ M.D.Performed By: #### BMP ####[address] [address] USAGFR/1.73 sq M.predicted MDRD (S/P/Bld) [Vol rate/Area]14.585 mL/min/{1.73_m2}NormalThe [facility] Physician [facility] HospitalComment on above:Performed By: #### BMP ####[address] [address] USAGlucose [Mass/Vol]112 mg/mSUmsx21-075 The [facility] Physician GroupComment on above:Result Comment: Random Glucose Reference Range is dependent on time and content of last meal. Glucose of more than 200 mg/dL in a nonstressed, ambulatory subject supports the diagnosis of Diabetes Mellitus. ADA recommended reference rangePerformed By: #### BMP ####[address] [address] [facility] Potassium [Moles/Vol]3.2 mmol/LLow3.5-5.1The [facility] Physician GroupComment on above:Performed By: #### BMP ####[place] [address] USASodium [Moles/Vol]140 mmol/GVkmhbm794-126Ueg [facility] Physician GroupComment on above:Performed By: #### BMP ####[address] [address] USAUrea nitrogen [Mass/Vol]56 mg/dLHigh7-25The [facility] Physician GroupComment on above: Performed By: #### BMP ####[place] [address] USADiff and CBCon 84-75-0993Qdwldattbqdy Ql (Bld)Slight NormalThe [facility] Physician GroupComment on above:Performed By: #### PATH SLIDE REV, DIFF CBC ####[address] [address] USABand form neutrophils/100 WBC (Bld)6 %High0-5The [facility] Physician GroupComment on above:Performed By: #### PATH SLIDE REV, DIFF CBC ####[place] [address] [place] Erythrocyte distribution width (RBC) [Ratio]16.7 %High11.9-15.3The [facility] Physician GroupComment on above:Performed By: #### PATH SLIDE REV, DIFF CBC ####[address] [address] USAGiant Platelet Tally2 /100{WBC}NormalThe [facility] Physician GroupComment on above: Performed By: #### PATH SLIDE REV, DIFF CBC ####[address] [address] USAHematocrit (Bld) [Volume fraction]26.5 %Low34.0-46.4The [facility] Physician GroupComment on above:Performed By: #### PATH SLIDE REV, DIFF CBC ####[address] [address] USAHemoglobin (Bld) [Mass/Vol]8.8 g/dLLow11.8-15.4The [facility] Physician GroupComment on above:Performed By: #### PATH SLIDE REV, DIFF CBC ####[address] [address] USAHypochromasiaModerateNoMission Family Health Center Physician GroupComment on above: Performed By: #### PATH SLIDE REV, DIFF CBC ####[address] [address] USALarge PlateletsSlightNoMission Family Health Center Physician GroupComment on above:Result Comment: PERFORMED BY:[address] ABHISHEKGaloBREWSTER, [place] [phone] MEDICAL DIRECTORCARLOS VÁZQUEZ M.D.Performed By: #### PATH SLIDE REV, DIFF CBC ####[place] [address] [place] Lymphocytes/100 WBC (Bld)2 %Tyg48-47Tkd [facility] Physician GroupComment on above:Performed By: #### PATH SLIDE REV, DIFF CBC ####[address] [address] [facility] HOS[facility]ITALMCH (RBC) [Entitic mass]27.7 pgNormal 24.7-34.3The [facility] Physician GroupComment on above:Performed By: #### PATH SLIDE REV, DIFF CBC ####[address] [address] USAMCV (RBC) [Entitic vol]82.9 zZLzmujn33-317Ema [facility] Physician GroupComment on above:Performed By: #### PATH SLIDE REV, DIFF CBC ####[address] [address] USAMean Corpuscular HGB Conc33.4 g/bNDxtqfl36.0-35.0The [facility] Physician GroupComment on above: Performed By: #### PATH SLIDE REV, DIFF CBC ####[address] [address] USAMetamyelocytes7 %High0-0The [facility] Physician GroupComment on above:Performed By: #### PATH SLIDE REV, DIFF CBC ####[address] [address] [place] Monocytes/100 WBC (Bld)8 %Normal2-11The [facility] Physician GroupComment on above:Performed By: #### PATH SLIDE REV, DIFF CBC ####[address] [address] USAMyelocytes2 %High0-0The [facility] Physician GroupComment on above:Performed By: #### PATH SLIDE REV, DIFF CBC ####[address] [address] [place] Nucleated Red Blood Cell3 /100{WBC}High0-0The [facility] Physician GroupComment on above:Performed By: #### PATH SLIDE REV, DIFF CBC ####[address] [address] USAOvalocytesSlightNormHCA Florida Citrus Hospital Physician GroupComment on above:Performed By: #### PATH SLIDE REV, DIFF CBC ####[address] [address] USAPlasma Cells3 %High0-0The [facility] Physician GroupComment on above:Performed By: #### PATH SLIDE REV, DIFF CBC ####[address] [address] USAPlatelet EstimateNormalNormalNormHCA Florida Citrus Hospital Physician GroupComment on above:Performed By: #### PATH SLIDE REV, DIFF CBC ####[address] [address] [place] Platelet mean volume (Bld) [Entitic vol]8.0 fLNormal6.3-10.7The [facility] Physician GroupComment on above:Result Comment: PERFORMED BY:[address] [place], [place] [phone] MEDICAL JACKELYN VÁZQUEZ M.D.Performed By: #### PATH SLIDE REV, DIFF CBC ####[address] [address] [place] Platelets (Bld) [#/Vol]200 10*3/sWXyfnfi103-557Xke [facility] Comment on above:Performed By: #### PATH SLIDE REV, DIFF CBC ####[address] [address] USAPoikilocytosisSlight NormalSanta Rosa Medical Center Physician GroupComment on above:Performed By: #### PATH SLIDE REV, DIFF CBC ####[address] [address] USAPolychromasiaModerateNormHCA Florida Citrus Hospital Physician GroupComment on above:Performed By: #### PATH SLIDE REV, DIFF CBC ####[address] [address] USARBC (Bld) [#/Vol]3.19 10*6/uLLow 3.60-5.00The [facility] Physician GroupComment on above:Performed By: #### PATH SLIDE REV, DIFF CBC ####[address] [address] USARouleauxSlightNormHCA Florida Citrus Hospital Physician GroupComment on above: Performed By: #### PATH SLIDE REV, DIFF CBC ####[address] [address] USASegmented neutrophils/100 WBC (Bld)72 %Uesg24-43Fie [facility] Physician GroupComment on above:Performed By: #### PATH SLIDE REV, DIFF CBC ####[address] [address] USAStomatocytesSlightNoMission Family Health Center Physician GroupComment on above:Performed By: #### PATH SLIDE REV, DIFF CBC ####[address] [address] USAWBC (Bld) [#/Vol]10.2 10*3/uLNormal 3.8-11.6The [facility] Physician GroupComment on above:Performed By: #### PATH SLIDE REV, DIFF CBC ####[address] [address] USAWhite Blood Count10.2 [CFU]/mLNormal3.8-11.6The [facility] Physician [facility] HospitalComment on above:Performed By: #### PATH SLIDE REV, DIFF CBC ####[place] [id number] USAGlucose Poct Glucometerson 15-63-9900Uebxekp8QdpamrWiv [place] Physician [facility] Memorial HospitalComment on above:Result Comment: Glu2: WILL NOTIFY DR/RNPERFORMED BY:[address] [place], [place] [phone] MEDICAL DIRECTORCARLOS VÁZQUEZ M.D.Performed By: #### GLULS ####Point of Care testing, Glucose [Mass/Vol]52 mg/dLOff scale [facility] Phys[facility] HospitalComment on above:Result Comment: Random Glucose Reference Range is dependent on time and content of last meal. Glucose of more than 200 mg/dL in a nonstressed, ambulatory subject supports the diagnosis of Diabetes Mellitus.Performed By: #### GLULS ####Point of Care testing,Sraxmrx9QzypepIpxCedars Medical Center Physician [facility] Comment on above:Result Comment: Glu2: Will Repeat TestPERFORMED BY:[place] [address] [address] [place], [place] [phone] MEDICAL JACKELYN VÁZQUEZ M.D.Performed By: #### GLULS ####Point of Care testing,Glucose [Mass/Vol]32 mg/dLOff scale [facility] Comment on above:Result Comment: Random Glucose Reference Range is dependent on time and content of last meal. Glucose of more than 200 mg/dL in a nonstressed, ambulatory subject supports the diagnosis of Diabetes Mellitus.Performed By: #### GLULS ####Point of Care testing,ISTAT Glucose Pocon 64-82-6536Krrhzkx [Mass/Vol]100 mg/mZYbhqcu74-603Vzl [place] Physician [facility] HospitalComment on above: Result Comment: PERFORMED BY:[address] [place], [place] [phone] BUD VÁZQUEZ M.D.Performed By: #### ISGLU ####Point of Care testing,Glucose [Mass/Vol]95 mg/xEUfjxoc93-677Azi [facility] Physician [facility] HospitalComment on above:Result Comment: PERFORMED BY:[place] [address] [address] [place], [place] [phone] MEDICAL JACKELYN VÁZQUEZ M.D.Performed By: #### ISGLU ####Point of Care testing,Glucose [Mass/Vol]99 mg/oRWdgwdx91-920Wvf [facility] Physician [facility] HospitalComment on above:Result Comment: PERFORMED BY:[address] [place], [place] [phone] MEDICAL JACKELYN VÁZQUEZ M.D.Performed By: #### ISGLU ####Point of Care testing,[place] 35-03-7393UQjinagJsx [facility] University Of PennsylvaniaPathologist Slide Reviewon 55-20-2559Qeagpgqlfxm Slide ReviewOrdered Path ReviewNoSelect Medical Specialty Hospital - TrumbullComment on above:Result Comment: PERFORMED BY:[address] [place], [place] [phone] MEDICAL JACKELYN VÁZQUEZ M.D.Performed By: #### PATH SLIDE REV, DIFF CBC ####[address] [address] [place] Vancomycin,Randomon 18-70-1800Dskdcpjgos,Emrvmz63.6High5.0-20.0The [facility] Physician GroupComment on above:Order Comment: Date of last dose?: 20241105 Time of last dose?: 2300Result Comment: Last dose: -PERFORMED BY:[place] [address] [address] [place], [place] [phone] BUD VÁZQUEZ M.D.Performed By: #### VANCR ####[address] [address] USAXR chest 1V portableon 89-27-9016SJ chest 1V portableNoMission Family Health Center Physician GroupArterial Blood Gason 85-65-0540QFA Base Excess-5.4 mmol/LLow-3.0-3.0The [facility] Physician GroupComment on above:Performed By: #### ABG ####Point of Care testing,ABG Frac Inspired O230 %NormalThe [facility] Physician GroupComment on above:Performed By: #### ABG ####Point of Care testing,ABG Oxygen Content6.1 mmol/LLow6.6-9.7The [facility] Physician GroupComment on above:Performed By: #### ABG ####Point of Care testing,ABG Oxygen Exglguwocm33.1 %Cnnrnb69.0-100.0The [facility] Physician GroupComment on above:Performed By: #### ABG ####Point of Care testing,ABG PCO2 33.3 mm[Hg]Low35.0-45.0The [facility] Physician GroupComment on above:Performed By: #### ABG ####Point of Care testing,ABG HGHM4RbtzcwFjp [facility] Physician GroupComment on above:Performed By: #### ABG ####Point of Care testing,ABG PH 7.26Pitbaj3.35-7.45[facility] Physician GroupComment on above:Performed By: #### ABG ####Point of Care testing,ABG WS3560.8 mm[Hg]High80.0-100.0The [facility] Physician GroupComment on above:Performed By: #### ABG ####Point of Care testing,ABG TV450 mLNormalThe [facility] Physician GroupComment on above: Performed By: #### ABG ####Point of Care testing,CO2 [Moles/Vol]20.1 mmol/LLow 23.0-27.0The [facility] Physician GroupComment on above:Performed By: #### ABG ####Point of Care testing,HCO3 (Bld) [Moles/Vol]19.0 mmol/LLow23.0-29.0[facility] Physician GroupComment on above:Performed By: #### ABG ####Point of Care testing,Respiratory CriticalNormHCA Florida Citrus Hospital Physician GroupComment on above:Result Comment: Critical Value called on: 11/07/2024 at 17:37PERFORMED BY:[facility] [place], [place] [phone] MEDICAL DIRECTORCARLOS VÁZQUEZ M.D.Performed By: #### ABG ####Point of Care testing,Set Respiratory Rxgo81GdcdoyMloCedars Medical Center Physician GroupComment on above:Performed By: #### ABG ####Point of Care testing,VBG Draw SiteArtlineCedars Medical Center Physician GroupComment on above: Performed By: #### ABG ####Point of Care testing,Ventilator ModeACCedars Medical Center Physician GroupComment on above:Performed By: #### ABG ####Point of Care testing,ABG Base Excess-5.7 mmol/LLow-3.0-3.0[facility] Physician Group Comment on above:Performed By: #### ABG ####Point of Care testing,ABG Frac Inspired O230 %NormalThe [facility] Physician GroupComment on above:Performed By: #### ABG ####Point of Care testing,ABG Oxygen Content5.9 mmol/LLow6.6-9.7The [facility] Physician GroupComment on above:Performed By: #### ABG ####Point of Care testing,ABG Oxygen Brppgdlvmc40.5 %Zhyrtu10.0-100.0The [facility] Physician GroupComment on above:Performed By: #### ABG ####Point of Care testing,ABG PCO2 31.8 mm[Hg]Low35.0-45.0The [facility] Physician GroupComment on above:Performed By: #### ABG ####Point of Care testing,ABG IRMB1EpzdgoOrgCedars Medical Center Physician GroupComment on above:Performed By: #### ABG ####Point of Care testing,ABG PH 7.93Cemwwv9.35-7.45The [facility] Physician GroupComment on above:Performed By: #### ABG ####Point of Care testing,ABG PO289.4 mm[Hg]Cuiojy97.0-100.0The [facility] Physician GroupComment on above:Performed By: #### ABG ####Point of Care testing,ABG TV450 mLNormalThe [facility] Physician GroupComment on above: Performed By: #### ABG ####Point of Care testing,CO2 [Moles/Vol]19.5 mmol/LLow 23.0-27.0The [facility] Physician GroupComment on above:Performed By: #### ABG ####Point of Care testing,HCO3 (Bld) [Moles/Vol]18.5 mmol/LLow23.0-29.0The [facility] Physician GroupComment on above:Performed By: #### ABG ####Point of Care testing,Respiratory CriticalNoMission Family Health Center Physician GroupComment on above:Result Comment: Critical Value called on: 11/07/2024 at 12:06PERFORMED BY:[place] [address] [address] [place], [place] [phone] MEDICAL DIRECTORCARLOS VÁZQUEZ M.D.Performed By: #### ABG ####Point of Care testing,Set Respiratory Svkn67UijpnfDmyMission Family Health Center Physician GroupComment on above:Performed By: #### ABG ####Point of Care testing,VBG Draw SiteArtlineCedars Medical Center Physician GroupComment on above: Performed By: #### ABG ####Point of Care testing,ABG Base Excess-7.0 mmol/LLow -3.0-3.0The [facility] Physician GroupComment on above:Performed By: #### ABG ####Point of Care testing,ABG Frac Inspired O230 %NormalThe [facility] Physician GroupComment on above:Performed By: #### ABG ####Point of Care testing,ABG Oxygen Content6.4 mmol/LLow6.6-9.7The [facility] Physician GroupComment on above: Performed By: #### ABG ####Point of Care testing,ABG Oxygen Omvjbgxegp56.0 % Bniwwv25.0-100.0The [facility] Physician GroupComment on above:Performed By: #### ABG ####Point of Care testing,ABG BXV025.0 mm[Hg]Low35.0-45.0The [facility] Physician GroupComment on above:Performed By: #### ABG ####Point of Care testing,ABG SYJZ6WakcnrWpuHCA Florida [facility]rus Hospital Physician GroupComment on above:Performed By: #### ABG ####Point of Care testing,ABG PH7.31Huqpxz1.35-7.45The [facility] Physician GroupComment on above:Performed By: #### ABG ####Point of Care testing,ABG PO295.5 mm[Hg]Vvwqyy95.0-100.0The [facility] Physician GroupComment on above:Performed By: #### ABG ####Point of Care testing,ABG TV450 mLNormalThe [facility] Physician GroupComment on above:Performed By: #### ABG ####Point of Care testing,CO2 [Moles/Vol]18.1 mmol/LLow23.0-27.0[facility] Physician Group Comment on above:Performed By: #### ABG ####Point of Care testing,HCO3 (Bld) [Moles/Vol]17.2 mmol/LLow23.0-29.0The [facility] Physician GroupComment on above: Performed By: #### ABG ####Point of Care testing,Respiratory CriticalNoMission Family Health Center Physician GroupComment on above:Result Comment: Critical Value called on: 11/07/2024 at 05:09PERFORMED BY:[facility] [place], [place] [phone] MEDICAL DIRECTORCARLOS VÁZQUEZ M.D.Performed By: #### ABG ####Point of Care testing,Set Respiratory Rate12 NormalSanta Rosa Medical Center Physician GroupComment on above:Performed By: #### ABG ####Point of Care testing,VBG Draw SiteArtlineNoMission Family Health Center Physician GroupComment on above:Performed By: #### ABG ####Point of Care testing,ABG Base Excess-5.9 mmol/LLow-3.0-3.0The [facility] Physician GroupComment on above: Performed By: #### ABG ####Point of Care testing,ABG Frac Inspired O230 %Normal The [facility] Physician GroupComment on above:Performed By: #### ABG ####Point of Care testing,ABG Oxygen Content6.8 mmol/LNormal6.6-9.7The [facility] Physician GroupComment on above:Performed By: #### ABG ####Point of Care testing,ABG Oxygen Srjjuphngr93.5 %Pjzhbr00.0-100.0The [facility] Physician GroupComment on above:Performed By: #### ABG ####Point of Care testing,ABG ODX160.7 mm[Hg]Off scale low35.0-45.0The [facility] Physician GroupComment on above:Performed By: #### ABG ####Point of Care testing,ABG UKTW6XbnzmzHbiHCA Florida [facility]rus Hospital Physician Group Comment on above:Performed By: #### ABG ####Point of Care testing,ABG PH7.42 Normal7.35-7.45The [facility] Physician GroupComment on above:Performed By: #### ABG ####Point of Care testing,ABG PN7235.0 mm[Hg]High80.0-100.0The [facility] Physician GroupComment on above:Performed By: #### ABG ####Point of Care testing,ABG TV450 mLNormalThe [facility] Physician GroupComment on above: Performed By: #### ABG ####Point of Care testing,CO2 [Moles/Vol]18.3 mmol/LLow 23.0-27.0The [facility] Physician GroupComment on above:Performed By: #### ABG ####Point of Care testing,HCO3 (Bld) [Moles/Vol]17.4 mmol/LLow23.0-29.0The [facility] Physician GroupComment on above:Performed By: #### ABG ####Point of Care testing,Respiratory CriticalNormHCA Florida [facility]rus Hospital Physician GroupComment on above:Result Comment: Critical Value called on: 11/07/2024 at 00:37PERFORMED BY:[address] [place], [place] [phone] MEDICAL DIRECTORCARLOS VÁZQUEZ M.D.Performed By: #### ABG ####Point of Care testing,Set Respiratory Qoxb95BitknlVmhMonticello HospitalComment on above:Performed By: #### ABG ####Point of Care testing,VBG Draw SiteArtlineMonticello HospitalComment on above: Performed By: #### ABG ####Point of Care testing,Ventilator ModeACNoMission Family Health Center Physician [facility] HospitalComment on above:Performed By: #### ABG ####Point of Care testing,Comprehensive Metabolic Panelon 76-80-1597Tnpckys [Mass/Vol]2.4 g/dLLow3.5-5.7The Hospital Of The University Of PennsylvaniaComment on above:Performed By: #### CMP, HEPATIC, TRIG, DIFF CBC ####[address] [address] USAAlbumin/Globulin [Mass ratio]1.2 {ratio}NormalThe [facility] Physician [facility] HospitalComment on above:Performed By: #### CMP, HEPATIC, TRIG, DIFF CBC ####[address] [address] USAALP [Catalytic activity/Vol]156 U/SJlrr48-264Bnn [facility] Physician Group Comment on above:Performed By: #### CMP, HEPATIC, TRIG, DIFF CBC ####[address] [address] USAALT [Catalytic activity/Vol]917 U/LHigh7-52The [facility] Of The University Of PennsylvaniaComment on above: Performed By: #### CMP, HEPATIC, TRIG, DIFF CBC ####[address] [address] USAAnion gap [Moles/Vol]15.6 mmol/LHigh 6.0-15.0The [facility] Of The University Of PennsylvaniaComment on above:Performed By: #### CMP, HEPATIC, TRIG, DIFF CBC ####[address] [address] USAAST [Catalytic activity/Vol]661 U/RXcnu30-93Ncs [facility] Physician GroupComment on above:Performed By: #### CMP, HEPATIC, TRIG, DIFF CBC ####[place] [address] [place] Bilirubin [Mass/Vol]0.7 mg/dLNormal0.3-1.0The [facility] Physician GroupComment on above:Performed By: #### CMP, HEPATIC, TRIG, DIFF CBC ####[place] [address] USACalcium [Mass/Vol]8.0 mg/dLLow 8.6-10.3The [facility] Physician GroupComment on above:Performed By: #### CMP, HEPATIC, TRIG, DIFF CBC ####[place] [address] USAChloride [Moles/Vol]109 mmol/KIsal79-320Lnu [facility] Physician GroupComment on above:Performed By: #### CMP, HEPATIC, TRIG, DIFF CBC ####[place] [id number] USACO2 [Moles/Vol]18.8 mmol/LLow21.0-31.0The [facility] Physician GroupComment on above: Performed By: #### CMP, HEPATIC, TRIG, DIFF CBC ####[place] [address] USACreatinine [Mass/Vol]2.93 mg/dL Significant change down0.60-1.20The [facility] Physician GroupComment on above: Performed By: #### CMP, HEPATIC, TRIG, DIFF CBC ####[place] [id number] USACreatinine Clr Calc Jezkgyba33.44 NormalThe [facility] Physician GroupComment on above:Performed By: #### CMP, HEPATIC, TRIG, DIFF CBC ####[place] [id number] USAGFR/1.73 sq M.predicted MDRD (S/P/Bld) [Vol rate/Area] 16.273 mL/min/{1.73_m2}NormalThe [facility] Physician GroupComment on above: Performed By: #### CMP, HEPATIC, TRIG, DIFF CBC ####[address] [address] USAGlobulin (S) [Mass/Vol]2.0 g/dLNormal The [facility] Physician GroupComment on above:Performed By: #### CMP, HEPATIC, TRIG, DIFF CBC ####[address] [address] USAGlucose [Mass/Vol]101 mg/uGOcrv70-921Lqj [facility] Comment on above:Result Comment: Random Glucose Reference Range is dependent on time and content of last meal. Glucose of more than 200 mg/dL in a nonstressed, ambulatory subject supports the diagnosis of Diabetes Mellitus. ADA recommended reference rangePerformed By: #### CMP, HEPATIC, TRIG, DIFF CBC ####[address] [address] USAPotassium [Moles/Vol] 3.4 mmol/LLow3.5-5.1The [facility] Physician GroupComment on above:Performed By: #### CMP, HEPATIC, TRIG, DIFF CBC ####[address] [address] USAProtein [Mass/Vol]4.4 g/dLLow6.4-8.9The [facility] Physician GroupComment on above:Performed By: #### CMP, HEPATIC, TRIG, DIFF CBC ####[address] [address] USASodium [Moles/Vol]140 mmol/ONydnql612-870Aru [facility] Physician GroupComment on above: Performed By: #### CMP, HEPATIC, TRIG, DIFF CBC ####[address] [address] USAUrea nitrogen [Mass/Vol]51 mg/dLHigh 7-25The [facility] Physician GroupComment on above:Performed By: #### CMP, HEPATIC, TRIG, DIFF CBC ####[address] [address] USADiff and CBCon 32-89-2862Fnxskxhgtqti Ql (Bld)Moderate NormalThe [facility] Physician GroupComment on above:Performed By: #### CMP, HEPATIC, TRIG, DIFF CBC ####[place] [address] USABand form neutrophils/100 WBC (Bld)6 %High0-5The [facility] Physician GroupComment on above:Performed By: #### CMP, HEPATIC, TRIG, DIFF CBC ####[place] [address] [place] Erythrocyte distribution width (RBC) [Ratio]16.6 %High11.9-15.3The [facility] Physician GroupComment on above:Performed By: #### CMP, HEPATIC, TRIG, DIFF CBC ####[place] [address] USAGiant Platelet Tally1 /100{WBC}NormalThe [facility] Physician GroupComment on above: Performed By: #### CMP, HEPATIC, TRIG, DIFF CBC ####[place] [address] USAHematocrit (Bld) [Volume fraction]30.4 %Low34.0-46.4The [facility] Physician GroupComment on above:Performed By: #### CMP, HEPATIC, TRIG, DIFF CBC ####[place] [address] USAHemoglobin (Bld) [Mass/Vol]10.1 g/dLLow11.8-15.4The [facility] Physician GroupComment on above:Performed By: #### CMP, HEPATIC, TRIG, DIFF CBC ####[place] [address] USAHypochromasiaMarkedCedars Medical Center Physician GroupComment on above: Performed By: #### CMP, HEPATIC, TRIG, DIFF CBC ####[place] [address] USALymphocytes/100 WBC (Bld)3 %Kxt79-53 The [facility] Physician GroupComment on above:Performed By: #### CMP, HEPATIC, TRIG, DIFF CBC ####[place] [address] USAMacrocytosisSlightAtrium Health Pineville Rehabilitation Hospitallands Physician GroupComment on above: Performed By: #### CMP, HEPATIC, TRIG, DIFF CBC ####[place] [id number] [facility] [place] [Entitic mass]27.7 pgNormal 24.7-34.3The [facility] Physician GroupComment on above:Performed By: #### CMP, HEPATIC, TRIG, DIFF CBC ####[place] [id number] [facility] [place] [Entitic vol]83.3 pMNrzqxr92-996Mrz [facility] Physician GroupComment on above:Performed By: #### CMP, HEPATIC, TRIG, DIFF CBC ####[place] [address] USAMean Corpuscular HGB Conc33.3 g/cTPnghqw32.0-35.0The [facility] Physician GroupComment on above:Performed By: #### CMP, HEPATIC, TRIG, DIFF CBC ####[place] [address] USAMetamyelocytes1 %High0-0The [facility] Physician GroupComment on above:Performed By: #### CMP, HEPATIC, TRIG, DIFF CBC ####[place] [address] USAMonocytes/100 WBC (Bld)10 %Normal2-11The [facility] Physician GroupComment on above:Performed By: #### CMP, HEPATIC, TRIG, DIFF CBC ####[place] [address] USAMyelocytes2 %High0-0The [facility] Physician GroupComment on above:Performed By: #### CMP, HEPATIC, TRIG, DIFF CBC ####[place] [address] USANucleated Red Blood Cell1 /100{WBC}High0-0The [facility]ician [facility] Comment on above:Performed By: #### CMP, HEPATIC, TRIG, DIFF CBC ####[place] [address] USAPlatelet Estimate NormalNormalNormalThe [place] Physician GroupComment on above:Performed By: #### CMP, HEPATIC, TRIG, DIFF CBC ####[address] [address] USAPlatelet mean volume (Bld) [Entitic vol]8.5 fLNormal 6.3-10.7The [facility] Physician GroupComment on above:Performed By: #### CMP, HEPATIC, TRIG, DIFF CBC ####[address] [address] USAPlatelet MorphologyNormalNormBayfront Health St. Petersburg Physician GroupComment on above:Result Comment: PERFORMED BY:[address] [place], [place] [phone] MEDICAL DIRECTORCARLOS VÁZQUEZ M.D.Performed By: #### CMP, HEPATIC, TRIG, DIFF CBC ####[address] [address] [place] Platelets (Bld) [#/Vol]230 10*3/sQSdudzu338-265Gcf [facility] Comment on above:Performed By: #### CMP, HEPATIC, TRIG, DIFF CBC ####[address] [address] USAPoikilocytosisSlight NormalSanta Rosa Medical Center Physician [facility] Memorial HospitalComment on above:Performed By: #### CMP, HEPATIC, TRIG, DIFF CBC ####[address] [address] USAPolychromasiaMarkedCedars Medical Center Physician [facility] Comment on above:Performed By: #### CMP, HEPATIC, TRIG, DIFF CBC ####[address] [address] USARBC (Bld) [#/Vol]3.65 10*6/uLNormal3.60-5.00[facility] Physician [facility] HospitalComment on above:Performed By: #### CMP, HEPATIC, TRIG, DIFF CBC ####[address] [address] USARouleauxSlightCedars Medical Center Physician GroupComment on above:Performed By: #### CMP, HEPATIC, TRIG, DIFF CBC ####[address] Segmented neutrophils/100 WBC (Bld)78 %Gyop60-33Msz [facility] Group Comment on above:Performed By: #### CMP, HEPATIC, TRIG, DIFF CBC ####[place] [address] USAWBC (Bld) [#/Vol]9.6 10*3/uLNormal3.8-11.6The [facility] Physician GroupComment on above:Performed By: #### CMP, HEPATIC, TRIG, DIFF CBC ####[address]White Blood Count9.6 [CFU]/mLNormal3.8-11.6[facility]ician [facility] HospitalComment on above:Performed By: #### CMP, HEPATIC, TRIG, DIFF CBC ####[place] [address] USAHepatic Panelon 05-79-2926Bfxldhgro,Indirect0.3 mg/dLNormalThe [facility] Physician [facility] HospitalComment on above:Performed By: #### CMP, HEPATIC, TRIG, DIFF CBC ####[address] Bilirubin.indirect [Mass/Vol]0.40 mg/dLHigh0.03-0.18[facility] Physician [facility] HospitalComment on above:Performed By: #### CMP, HEPATIC, TRIG, DIFF CBC ####[place] [address] USAISTAT Glucose Pocon 21-59-3305Ufsujyo [Mass/Vol]100 mg/uJJjuwhg76-099Pxt [facility] Physician [facility] HospitalComment on above:Result Comment: PERFORMED BY:[address] [place], [place] [phone] MEDICAL DIRECTORCARLOS VÁZQUEZ M.D.Performed By: #### ISGLU ####Point of Care testing, Glucose [Mass/Vol]93 mg/cUXcypxg55-690Mcu [facility] Physician GroupComment on above:Result Comment: PERFORMED BY:[place] [address] [address] [place], [place] [phone] MEDICAL JACKELYN VÁZQUEZ M.D.Performed By: #### ISGLU ####Point of Care testing,Glucose [Mass/Vol]94 mg/xZPcebna22-730Ngy [facility] Physician GroupComment on above:Result Comment: PERFORMED BY:[address] [address] [address] [place], [place] [phone] MEDICAL JACKELYN VÁZQUEZ M.D.Performed By: #### ISGLU ####Point of Care testing,Triglycerideson 54-91-6323Prhxgmiocdfb [Mass/Vol]317 mg/bFCqmo56-685Eho [facility] Physician GroupComment on above: Result Comment: TRIG ATP III CLASSIFICATION TRIG less than 150 mg/dL Normal TRIG 150-199 mg/dL Borderline high TRIG 200-500 mg/dL High TRIG greater than 500 mg/dL Very high Standard traceable to the Center for Disease Conrtrol and Prevention (CDC) test method.PERFORMED BY:[address] WETZELMIL[place], [place] [phone] MEDICAL JACKELYN VÁZQUEZ M.D.Performed By: #### CMP, HEPATIC, TRIG, DIFF CBC ####[address] [address] USAVancomycin,Randomon 30-76-1575Igadfuclhr,Kjoovg31.3High5.0-20.0The [facility] Physician GroupComment on above:Order Comment: Date of last dose?: [id number] Time of last dose?: 2329 Result Comment: Last dose: -PERFORMED BY:[address] [address] [address] [place], [place] [phone] BUD VÁZQUEZ M.D.Performed By: #### VANCR ####[address] [address] USAXR chest 1V portableon 11-41-6548DQ chest 1V portableNormalThe [facility] Physician GroupArterial Blood Gason 24-32-1024WKI Base Excess-8.5 mmol/LLow-3.0-3.0[facility] Physician GroupComment on above: Performed By: #### ABG ####Point of Care testing,ABG Frac Inspired O230%Normal The [facility] Physician GroupComment on above:Performed By: #### ABG ####Point of Care testing,ABG Oxygen Content6.6 mmol/LNormal6.6-9.7The [facility] Physician GroupComment on above:Performed By: #### ABG ####Point of Care testing,ABG Oxygen Ekxrninwff46.5 %Tpijvy61.0-100.0The [facility] Physician GroupComment on above:Performed By: #### ABG ####Point of Care testing,ABG GPE920.4 mm[Hg]Off scale low35.0-45.0The [facility] Physician GroupComment on above:Performed By: #### ABG ####Point of Care testing,ABG WBLQ0SflrgeUdiHCA [facility]rus Hospital Physician Group Comment on above:Performed By: #### ABG ####Point of Care testing,ABG PH7.42 Normal7.35-7.45The [facility] Physician GroupComment on above:Performed By: #### ABG ####Point of Care testing,ABG AM2737.7 mm[Hg]High80.0-100.0The [facility] Physician GroupComment on above:Performed By: #### ABG ####Point of Care testing,ABG TV450 mLNormalThe [facility] Physician GroupComment on above: Performed By: #### ABG ####Point of Care testing,CO2 [Moles/Vol]15.0 mmol/LLow 23.0-27.0The [facility] Physician GroupComment on above:Performed By: #### ABG ####Point of Care testing,HCO3 (Bld) [Moles/Vol]14.3 mmol/LLow23.0-29.0The [facility] Physician GroupComment on above:Performed By: #### ABG ####Point of Care testing,Respiratory CriticalNormHCA Florida Citrus Hospital Physician GroupComment on above:Result Comment: Critical Value called on: 11/06/2024 at 18:12PERFORMED BY:[facility] SNYDERRadhaHUIMILTON, [place] [phone] MEDICAL DIRECTORCARLOS VÁZQUEZ M.D.Performed By: #### ABG ####Point of Care testing,Set Respiratory Coih87RgktbfSnzCedars Medical Center Physician GroupComment on above:Performed By: #### ABG ####Point of Care testing,VBG Draw SiteArtlineCedars Medical Center Physician GroupComment on above: Performed By: #### ABG ####Point of Care testing,ABG Base Excess-7.3 mmol/LLow -3.0-3.0The [facility] Physician GroupComment on above:Performed By: #### ABG ####Point of Care testing,ABG Frac Inspired O230 %NormalThe [facility] Physician GroupComment on above:Performed By: #### ABG ####Point of Care testing,ABG Oxygen Content6.5 mmol/LLow6.6-9.7The [facility] Physician GroupComment on above: Performed By: #### ABG ####Point of Care testing,ABG Oxygen Sxkctunolf04.3 % Abygyy86.0-100.0The [facility] Physician GroupComment on above:Performed By: #### ABG ####Point of Care testing,ABG BFF612.3 mm[Hg]Off scale low35.0-45.0The [facility] Physician GroupComment on above:Performed By: #### ABG ####Point of Care testing,ABG QDEJ5LudlvdHkjCedars Medical Center Physician GroupComment on above: Performed By: #### ABG ####Point of Care testing,ABG PH7.88Vxdpog7.35-7.45The [facility] Physician GroupComment on above:Performed By: #### ABG ####Point of Care testing,ABG KC8513.4 mm[Hg]High80.0-100.0The [facility]ician [facility] Comment on above:Performed By: #### ABG ####Point of Care testing,ABG TV450 mL NormalThe [facility] Physician GroupComment on above:Performed By: #### ABG ####Point of Care testing,CO2 [Moles/Vol]16.1 mmol/LLow23.0-27.0The [facility] Physician GroupComment on above:Performed By: #### ABG ####Point of Care testing,HCO3 (Bld) [Moles/Vol]15.4 mmol/LLow23.0-29.0The [facility] Physician GroupComment on above:Performed By: #### ABG ####Point of Care testing, Respiratory CriticalNormHCA Florida Citrus Hospital Physician GroupComment on above:Result Comment: Critical Value called on: 11/06/2024 at 12:25PERFORMED BY:[facility] [place], [place] [phone] MEDICAL DIRECTORCARLOS VÁZQUEZ M.D.Performed By: #### ABG ####Point of Care testing,Set Respiratory Urcu08TrmegwMjf [facility] Physician GroupComment on above:Performed By: #### ABG ####Point of Care testing,VBG Draw SiteArtline NormalThe [facility] Physician GroupComment on above:Performed By: #### ABG ####Point of Care testing,Ventilator ModeACNoMission Family Health Center Physician Group Comment on above:Performed By: #### ABG ####Point of Care testing,ABG Base Excess-4.9 mmol/LLow-3.0-3.0The [facility] Physician GroupComment on above: Performed By: #### ABG ####Point of Care testing,ABG Frac Inspired O240 %Normal The [facility] Physician GroupComment on above:Performed By: #### ABG ####Point of Care testing,ABG Oxygen Content7.4 mmol/LNormal6.6-9.7The [facility] Physician GroupComment on above:Performed By: #### ABG ####Point of Care testing,ABG Oxygen Efqznhyojr31.6 %Khheju66.0-100.0The [facility] Physician GroupComment on above:Performed By: #### ABG ####Point of Care testing,ABG SNV931.8 mm[Hg]Off scale low35.0-45.0The [facility] Physician GroupComment on above:Performed By: #### ABG ####Point of Care testing,ABG UIUU7ZczhypIujCedars Medical Center Physician Group Comment on above:Performed By: #### ABG ####Point of Care testing,ABG PH7.44 Normal7.35-7.45The [facility] Physician GroupComment on above:Performed By: #### ABG ####Point of Care testing,ABG MF5702.0 mm[Hg]Off scale high80.0-100.0The [facility] Physician GroupComment on above:Performed By: #### ABG ####Point of Care testing,ABG TV450 mLNormalThe [facility] Physician GroupComment on above: Performed By: #### ABG ####Point of Care testing,CO2 [Moles/Vol]18.7 mmol/LLow 23.0-27.0The [facility] Physician GroupComment on above:Performed By: #### ABG ####Point of Care testing,HCO3 (Bld) [Moles/Vol]17.9 mmol/LLow23.0-29.0The [facility] Physician GroupComment on above:Performed By: #### ABG ####Point of Care testing,Respiratory CriticalNoMission Family Health Center Physician GroupComment on above:Result Comment: Critical Value called on: 11/06/2024 at 06:12PERFORMED BY:[facility] [place], [place] [phone] MEDICAL JACKELYN VÁZQUEZ M.D.Performed By: #### ABG ####Point of Care testing,Set Respiratory Rmej92OtzdqzLcnCedars Medical Center Physician GroupComment on above:Performed By: #### ABG ####Point of Care testing,VBG Draw SiteArtlineCedars Medical Center Physician GroupComment on above: Performed By: #### ABG ####Point of Care testing,Ventilator ModeACNoMission Family Health Center Physician GroupComment on above:Performed By: #### ABG ####Point of Care testing,ABG Base Excess-5.4 mmol/LLow-3.0-3.0The [facility]ician Group Comment on above:Performed By: #### ABG ####Point of Care testing,ABG Oxygen Content6.9 mmol/LNormal6.6-9.7The [facility] Physician GroupComment on above: Performed By: #### ABG ####Point of Care testing,ABG Oxygen Bcavmtlngi94.0 % Xetvgd40.0-100.0The [facility] Physician GroupComment on above:Performed By: #### ABG ####Point of Care testing,ABG AMT805.1 mm[Hg]Off scale low35.0-45.0The [facility] Physician GroupComment on above:Performed By: #### ABG ####Point of Care testing,ABG PH7.69Iqajec2.35-7.45The [facility] Physician GroupComment on above:Performed By: #### ABG ####Point of Care testing,ABG YL1168.3 mm[Hg]Off scale high80.0-100.0The [facility] Physician GroupComment on above:Performed By: #### ABG ####Point of Care testing,ABG TV400 mLNormalThe [facility] Physician GroupComment on above:Performed By: #### ABG ####Point of Care testing,CO2 [Moles/Vol]17.9 mmol/LLow23.0-27.0The [facility] Physician GroupComment on above: Performed By: #### ABG ####Point of Care testing,HCO3 (Bld) [Moles/Vol]17.2 mmol/LLow23.0-29.0The [facility] Physician GroupComment on above:Performed By: #### ABG ####Point of Care testing,Comprehensive Metabolic Panelon 11-06-2024 Albumin [Mass/Vol]2.6 g/dLLow3.5-5.7The [facility] Physician GroupComment on above:Performed By: #### CMP, DIFF CBC ####[facility] [address] [place] [address] USAAlbumin/Globulin [Mass ratio]1.2 {ratio}Normal The [facility] Physician GroupComment on above:Performed By: #### CMP, DIFF CBC ####[address] [address] USAALP [Catalytic activity/Vol]185 U/NUcri45-964Ghd [facility] Physician GroupComment on above:Performed By: #### CMP, DIFF CBC ####[place] [id number] USAALT [Catalytic activity/Vol]1419 U/LHigh7-52 The [facility] Physician GroupComment on above:Performed By: #### CMP, DIFF CBC ####[place] [address] USAAnion gap [Moles/Vol]13.5 mmol/LNormal6.0-15.0The [facility] Physician GroupComment on above:Performed By: #### CMP, DIFF CBC ####[place] [address] USAAST [Catalytic activity/Vol]1912 U/ROvpu38-16 The [facility] Physician GroupComment on above:Performed By: #### CMP, DIFF CBC ####[place] [address] [place] Bilirubin [Mass/Vol]1.0 mg/dLNormal0.3-1.0The [facility] Physician GroupComment on above:Performed By: #### CMP, DIFF CBC ####[place] [address] USACalcium [Mass/Vol]7.9 mg/dLLow8.6-10.3The [facility] Physician GroupComment on above:Performed By: #### CMP, DIFF CBC ####[place] [address] [place] Chloride [Moles/Vol]112 mmol/MDkuo00-580Zde [facility] Physician GroupComment on above:Performed By: #### CMP, DIFF CBC ####[place] [address] USACO2 [Moles/Vol]19.1 mmol/LLow21.0-31.0The [facility] Physician GroupComment on above:Performed By: #### CMP, DIFF CBC ####[address] [address] [place] Creatinine [Mass/Vol]2.09 mg/dLSignificant change down0.60-1.20The [facility] Physician GroupComment on above:Performed By: #### CMP, DIFF CBC ####[place] [address] USACreatinine Clr Calc Komrhsqg37.61NormHCA [facility] Hospital Physician [facility] HospitalComment on above:Result Comment: PERFORMED BY:[address]ETGaloBREWSTER, [place] [phone] MEDICAL JACKELYN VÁZQUEZ M.D.Performed By: #### CMP, DIFF CBC ####[place] [address] USAGFR/1.73 sq M.predicted MDRD (S/P/Bld) [Vol rate/Area]24.408 mL/min/{1.73_m2}NormalThe [facility] Physician [facility] HospitalComment on above:Performed By: #### CMP, DIFF CBC ####[place] [address] USAGlobulin (S) [Mass/Vol]2.1 g/dLCedars Medical Center Physician [facility] HospitalComment on above:Performed By: #### CMP, DIFF CBC ####[place] [address] USAGlucose [Mass/Vol]107 mg/tFBsur89-414Gxd [facility] Physician [facility] HospitalComment on above:Result Comment: Random Glucose Reference Range is dependent on time and content of last meal. Glucose of more than 200 mg/dL in a nonstressed, ambulatory subject supports the diagnosis of Diabetes Mellitus. ADA recommended reference rangePerformed By: #### CMP, DIFF CBC ####[place] [id number] USAPotassium [Moles/Vol]3.6 mmol/LNormal3.5-5.1The [facility] Physician GroupComment on above:Performed By: #### CMP, DIFF CBC ####[address] [address] USAProtein [Mass/Vol]4.7 g/dLLow 6.4-8.9The [facility] Physician GroupComment on above:Performed By: #### CMP, DIFF CBC ####[address] [address] USASodium [Moles/Vol]141 mmol/KNvvnzc891-855Joc [facility] Physician GroupComment on above:Performed By: #### CMP, DIFF CBC ####[address] [address] USAUrea nitrogen [Mass/Vol]43 mg/dLHigh 7-25The [facility] Physician GroupComment on above:Performed By: #### CMP, DIFF CBC ####[address] [address] [facility] Creatinine, Urine (Random)on 26-54-2497Yhwykeqhxe, Urine (Random)88.00 mg/dL NormalThe [facility] Physician GroupComment on above:Result Comment: No reference range establishedPERFORMED BY:[address] ABHISHEKGaloRadhaHUI, [place] [phone] MEDICAL DIRECTORCARLOS VÁZQUEZ M.D.Performed By: #### UCREA ####[address] [address] USADiff and CBCon 52-28-5482Bssqiktucoti Ql (Bld)Slight NormalThe [facility] Physician GroupComment on above:Performed By: #### CMP, DIFF CBC ####[address] [address] [place] Band form neutrophils/100 WBC (Bld)8 %High0-5The [facility] Physician [facility] Comment on above:Performed By: #### CMP, DIFF CBC ####[address] [address] USAErythrocyte distribution width (RBC) [Ratio]16.8 %High11.9-15.3The [facility] Physician GroupComment on above: Performed By: #### CMP, DIFF CBC ####[address] [address] USAHematocrit (Bld) [Volume fraction]33.6 %Low34.0-46.4 The [facility] Physician GroupComment on above:Performed By: #### CMP, DIFF CBC ####[address] [address] [facility] Hemoglobin (Bld) [Mass/Vol]11.2 g/dLLow11.8-15.4The [facility] Group Comment on above:Performed By: #### CMP, DIFF CBC ####[address] [address] USAHypochromasiaSlightNormalThCascade Medical Center Physician GroupComment on above:Performed By: #### CMP, DIFF CBC ####[address] [address] [place] Lymphocytes/100 WBC (Bld)5 %Jpv94-39Nof [facility] Physician GroupComment on above:Performed By: #### CMP, DIFF CBC ####[address] [address] [facility]ITALMCH (RBC) [Entitic mass]27.7 zjSsheoc58.7-34.3 The [facility] Physician GroupComment on above:Performed By: #### CMP, DIFF CBC ####[address] [address] USAMCV (RBC) [Entitic vol]83.0 jUDuizvc63-136Hpn [facility] Physician GroupComment on above:Performed By: #### CMP, DIFF CBC ####[address] [address] USAMean Corpuscular HGB Conc33.3 g/dLNormal 32.0-35.0The [facility] Physician GroupComment on above:Performed By: #### CMP, DIFF CBC ####[address] [address] USAMonocytes/100 WBC (Bld)4 %Normal2-11The [facility] Physician GroupComment on above:Performed By: #### CMP, DIFF CBC ####[address] [address] USAPlatelet EstimateNormalNormalNormHCA Florida [facility] Hospital Physician GroupComment on above:Performed By: #### CMP, DIFF CBC ####[address] [address] [place] Platelet mean volume (Bld) [Entitic vol]8.6 fLNormal6.3-10.7The [facility] Physician GroupComment on above:Result Comment: PERFORMED BY:[address] [place], [place] [phone] MEDICAL DIRECTORCARLOS VÁZQUEZ M.D.Performed By: #### CMP, DIFF CBC ####[place] [id number] USAPlatelet Morphology NormalNormalNormHCA Florida [facility]rus Hospital Physician GroupComment on above:Result Comment: PERFORMED BY:[address]GaloBREWSTER, [place] [phone] MEDICAL JACKELYN VÁZQUEZ M.D.Performed By: #### CMP, DIFF CBC ####[address] [address] USAPlatelets (Bld) [#/Vol]277 10*3/bRXrkwiq143-916Xkr [facility] Physician GroupComment on above:Performed By: #### CMP, DIFF CBC ####[address] [address] USAPolychromasiaSlight NormalThe [facility] Physician GroupComment on above:Performed By: #### CMP, DIFF CBC ####[address] [address] [place] Promyelocytes1 %High0-0The [facility] Physician GroupComment on above:Performed By: #### CMP, DIFF CBC ####[address] [address] USARBC (Bld) [#/Vol]4.04 10*6/uLNormal3.60-5.00The [facility] Physician GroupComment on above:Performed By: #### CMP, DIFF CBC ####[address] [address] [place] Segmented neutrophils/100 WBC (Bld)83 %Mdnt39-91Msa [facility]ician Group Comment on above:Performed By: #### CMP, DIFF CBC ####[address] [address] USAWBC (Bld) [#/Vol]9.0 10*3/uLNormal 3.8-11.6The [facility] Physician GroupComment on above:Performed By: #### CMP, DIFF CBC ####[address] [address] USAWhite Blood Count9.0 [CFU]/mLNormal3.8-11.6The [facility]ician Group Comment on above:Performed By: #### CMP, DIFF CBC ####[address] [address] USADipstick and Microscopicon 11-06-2024 Appearance (U)Slightly cloudyCritically abnormalClearThe [facility] Physician GroupComment on above:Order Comment: Name Collection Type:: Pandya Catheter Performed By: #### JOSE LUIS, CUU ####[address] USABacteria,Urine2+ [HPF]NormalNone SeenThe [facility] Physician GroupComment on above:Order Comment: Name Collection Type:: Pandya CatheterPerformed By: #### ADDONUAPLUS, CUU ####[address] USABilirubin,UrineNegativeNormalNegative The [facility] Physician GroupComment on above:Order Comment: Name Collection Type:: Pandya CatheterPerformed By: #### ADDONUAPLUS, CUU ####[address] USABudding Yeast,Urine4+ [HPF] NormalNone SeenThe [facility] Physician GroupComment on above:Order Comment: Name Collection Type:: Pandya CatheterResult Comment: PERFORMED BY:[place] [address] [address] [place] [phone] MEDICAL DIRECTORCARLOS VÁZQUEZ M.D.Performed By: #### ADDONUAPLUS, CUU ####[place] [address] [facility], [id number] USAColor (U)Dark-Yellow Critically abnormalYellowSanta Rosa Medical Center Physician GroupComment on above:Order Comment: Name Collection Type:: Pandya CatheterPerformed By: #### ADDONUAPLUS, CUU ####[address] [place] Glucose Ql (U)NormalNormalNormalThCascade Medical Center Physician GroupComment on above: Order Comment: Name Collection Type:: Pandya CatheterPerformed By: #### ADDONUAPLUS, CUU ####[address] [address] USAHyaline Casts,UrineNoneNormal0-8The [facility] Physician GroupComment on above:Order Comment: Name Collection Type:: Pandya CatheterPerformed By: #### ADDONUAPLUS, CUU ####[address] [address] USAKetones Ql (U)TraceNormalNegativeSanta Rosa Medical Center Physician GroupComment on above:Order Comment: Name Collection Type:: Pandya CatheterPerformed By: #### ADDONUAPLUS, CUU ####[address] [address] USALeukocyte esterase Test strip Ql (U)3+NormalNegativeSanta Rosa Medical Center Physician GroupComment on above:Order Comment: Name Collection Type:: Pandya CatheterPerformed By: #### ADDONUAPLUS, CUU ####[address] USAMucus,UrineRareNormalSanta Rosa Medical Center Physician GroupComment on above:Order Comment: Name Collection Type:: Pandya CatheterPerformed By: #### ADDONUAPLUS, CUU ####[address] USANitrite,UrineNegativeNormalNegativeSanta Rosa Medical Center Physician GroupComment on above:Order Comment: Name Collection Type:: Pandya CatheterPerformed By: #### JOSE LUIS, CUU ####[place] [address] Fieldschristine [place], [id number] USAOccult Blood,Urine3+NormalNegativeThe [facility] Physician GroupComment on above:Order Comment: Name Collection Type:: Pandya CatheterResult Comment: PERFORMED BY:[place] [address] [address] [place], [place] [phone] MEDICAL DIRECTORCARLOS VÁZQUEZ M.D.Performed By: #### JOSE LUIS, CUU ####[address] Micaelacritical access hospitalkathleen, [id number] USApH (U)5.5 [pH]Normal5.0-9.0The [facility] Physician GroupComment on above:Order Comment: Name Collection Type:: Pandya CatheterPerformed By: #### JOSE LUIS, CUU ####[address] Micaelacritical access hospitalkathleen, [id number] USAProtein (U) [Mass/Vol]30 mg/dLNormal NegativeThe [facility] Physician GroupComment on above:Order Comment: Name Collection Type:: Pandya CatheterPerformed By: #### JOSE LUIS, CUU ####[address]christine Diaz, [id number] [place] RBC,UrineInnumerableNormal0-4The [facility] Physician GroupComment on above:Order Comment: Name Collection Type:: Pandya CatheterPerformed By: #### JOSE LUIS, CUU ####[place] [address] Fieldschristine Diaz, [id number] [place] Specificy [place],Urine1.694Gnfuej0.001-1.030[facility] Comment on above:Order Comment: Name Collection Type:: Pandya CatheterPerformed By: #### ADDONUAPLUS, CUU ####[place] [address] [place] Micaelacritical access hospitalkathleen, [id number] USASquamous Epithelial Cell,Irozh8-2Qxclwd6-4Tno [facility] Physician GroupComment on above:Order Comment: Name Collection Type:: Pandya CatheterPerformed By: #### ADDONUAPLUS, CUU ####[place] [address] [facility], [id number] USAUrobilinogen,UrineNormalNormalNormal [facility] Physician GroupComment on above:Order Comment: Name Collection Type:: Pandya CatheterPerformed By: #### ADDONUAPLUS, CUU ####[address], [id number] USAWBC CLUMP, UrineManyNormalNone SeenThe [facility] Physician GroupComment on above:Order Comment: Name Collection Type:: Pandya CatheterPerformed By: #### ADDONUAPLUS, CUU ####[address] USAWBC,Jilcw59-73Hedibt7-9Vct [facility] Physician GroupComment on above:Order Comment: Name Collection Type:: Pandya CatheterPerformed By: #### ADDONUAPLUS, CUU ####[address] USADrug Screen,Urineon 11-06-2024 Amphetamine Screen,UrineNegativeNormalNegativeThe [facility]ician [facility] Comment on above:Performed By: #### URDS ####[address] [address] USABarbiturate Screen,UrineNegativeNormalNegative [facility] Physician GroupComment on above:Performed By: #### URDS ####[address] [address] [place] Benzodiazepines Screen,UrinePositiveNormalNegativeSanta Rosa Medical Center Physician [facility] Comment on above:Performed By: #### URDS ####[address] [address] USACannabinoid Screen,UrineNegativeNormalNegative [facility] Physician GroupComment on above:Result Comment: These are unconfirmed results and should not be used for legal purposes. Drug Cut-Off Concentration: AMPH 1000 ng/mL VIRGILIO 200 ng/mL OSCAR 200 ng/mL COCM 300 ng/mL OP 300 ng/mL PCP 25 ng/mL THC 20 ng/mLPERFORMED BY:[place] [address] [address] WEISSAlirioHUIMILTON, [place] [phone] MEDICAL JACKELYN VÁZQUEZ M.D.Performed By: #### URDS ####[facility] [place] [address] USACocaine Screen,UrineNegative NormalNegativeThe [facility] Physician GroupComment on above:Performed By: #### URDS ####[facility] [place] [address], [place] [address] [place] Opiate Screen,UrineNegativeNormalNegativeThe [facility] Physician GroupComment on above:Performed By: #### URDS ####[facility] [place] [address] USAPhencyclidine Screen,UrineNegativeNormalNegativeThe [facility] Physician GroupComment on above:Performed By: #### URDS ####[address] [address] USAECH echo transthoracicon 57-13-6423BOA echo transthoracicNormalThe [facility]ician [facility] HospitalISTAT Glucose Pocon 33-58-7321Ropsnbv [Mass/Vol]91 mg/qKZyapez08-484Zak [facility] Physician [facility] HospitalComment on above:Result Comment: PERFORMED BY:[address] [place] [address] [address] [place], [place] [phone] MEDICAL JACKELYN VÁZQUEZ M.D.Performed By: #### ISGLU ####Point of Care testing,Glucose [Mass/Vol]96 mg/nFGwhhrc73-677Jkr [facility] Comment on above:Result Comment: PERFORMED BY:[place] [address] [address] [place], [place] [phone] MEDICAL JACKELYN VÁZQUEZ M.D.Performed By: #### ISGLU ####Point of Care testing, Glucose [Mass/Vol]115 mg/sYSmwd07-993Hnz [facility] Physician GroupComment on above:Result Comment: PERFORMED BY:[address] [place] [address] [address] [place], [place] [phone] MEDICAL JACKELYN VÁZQUEZ M.D.Performed By: #### ISGLU ####Point of Care testing,Sodium, Urine (Random)on 44-62-4123Stopkn (U) [Moles/Vol]25 mmol/LNormalThe [facility] Comment on above:Result Comment: No reference range establishedPERFORMED BY:[address] [place], [place] [phone] MEDICAL JACKELYN VÁZQUEZ M.D.Performed By: #### SANGEETA ####[address] [address] USAUrine Cultureon 58-50-8586Fvcbyoby identified Cx Nom (U)ORGANISM: Clau albicans (O:CANALB) [place] Count >100,000 PERFORMED BY: [address] [address] PATHOLOGIST ORTHO TECH CARLOS VÁZQUEZ M.D.NormalThe Hospital Of The University Of PennsylvaniaComment on above: Performed By: #### ADDONUAPLUS, CUU ####[address] USABacteria identified Cx Nom (U)ORGANISM: Clau albicans (O:CANALB) [place] Count >100,000 PERFORMED BY: [address] [address] PATHOLOGIST ORTHO TECH CARLOS VÁZQUEZ M.D.NormalThe [facility] Physician [facility] HospitalComment on above: Performed By: #### CUU ####[address] [address] USAXR chest 1V portableon 98-65-7456UB chest 1V portableNormSelect Medical Specialty Hospital - Southeast Ohioe [facility] HospitalArterial Blood Gason 58-56-5046GOI Base Excess-6.1 mmol/LLow-3.0-3.0[facility] Physician [facility] HospitalComment on above: Performed By: #### ABG ####Point of Care testing,ABG Frac Inspired O250 %Normal [facility] Physician [facility] HospitalComment on above:Performed By: #### ABG ####Point of Care testing,ABG Oxygen Content6.7 mmol/LNormal6.6-9.7The [facility] Physician GroupComment on above:Performed By: #### ABG ####Point of Care testing,ABG Oxygen Inymjvbwjs79.3 %Fuqecw12.0-100.0The [facility] Physician GroupComment on above:Performed By: #### ABG ####Point of Care testing,ABG HVU710.4 mm[Hg]Off scale low35.0-45.0The [facility] Physician GroupComment on above:Performed By: #### ABG ####Point of Care testing,ABG VPDA6PhilsaZdnHCA [facility] Physician [facility] Comment on above:Performed By: #### ABG ####Point of Care testing,ABG PH7.43 Normal7.35-7.45The [facility] Physician GroupComment on above:Performed By: #### ABG ####Point of Care testing,ABG TT5604.2 mm[Hg]High80.0-100.0The [facility] Physician GroupComment on above:Performed By: #### ABG ####Point of Care testing,ABG TV450 mLNormalThe [facility] Physician GroupComment on above: Performed By: #### ABG ####Point of Care testing,CO2 [Moles/Vol]17.8 mmol/LLow 23.0-27.0The [facility] Physician GroupComment on above:Performed By: #### ABG ####Point of Care testing,HCO3 (Bld) [Moles/Vol]17.0 mmol/LLow23.0-29.0The [facility] Physician GroupComment on above:Performed By: #### ABG ####Point of Care testing,Respiratory CriticalNormHCA Florida Citrus Hospital Physician GroupComment on above:Result Comment: Critical Value called on: 11/06/2024 at 00:03PERFORMED BY:[address] [address] [address] [place], [place] [phone] MEDICAL DIRECTORCARLOS VÁZQUEZ M.D.Performed By: #### ABG ####Point of Care testing,Result Comment: Critical Value called on: 11/05/2024 at 17:13PERFORMED BY:[facility] [place], [place] [phone] MEDICAL DIRECTORCARLOS VÁZQUEZ M.D.Set Respiratory Tryr72AskpupEleMission Family Health Center Physician [facility] HospitalComment on above: Performed By: #### ABG ####Point of Care testing,VBG Draw SiteArtlineCedars Medical Center Physician [facility] HospitalComment on above:Performed By: #### ABG ####Point of Care testing,Ventilator ModeACNoMission Family Health Center Physician [facility] HospitalComment on above:Performed By: #### ABG ####Point of Care testing,Blood Cultureon 51-27-2260Xhutlspf identified Cx Nom (Bld)NO GROWTH 5 DAYS PERFORMED BY: [facility] [address] [place] [address] PATHOLOGIST ORTHO TECH CARLOS VÁZQUEZ M.D.NormalThe [facility] Physician [facility] HospitalComment on above: Performed By: #### CUBLD ####[address] [address] USABacteria identified Cx Nom (Bld)NormalSanta Rosa Medical Center Physician [facility] Memorial HospitalComment on above:Performed By: #### CUBLD ####[address] [address] USAComprehensive Metabolic Panel on 80-15-6387Uwxijsj [Mass/Vol]2.5 g/dLLow3.5-5.7The [facility]ician [facility] Comment on above:Performed By: #### DIFF CBC, CMP, PT, LACTIC ####[address] [address] USAAlbumin/Globulin [Mass ratio]1.3 {ratio}NormalSanta Rosa Medical Center Physician [facility] HospitalComment on above: Performed By: #### DIFF CBC, CMP, PT, LACTIC ####[address] [address] USAPerformed By: #### CMP, DIFF CBC ####[address] [address] USAALP [Catalytic activity/Vol]190 U/DChrc05-626Ine [facility] The University Of PennsylvaniaComment on above:Performed By: #### DIFF CBC, CMP, PT, LACTIC ####[address] [address] USAALT [Catalytic activity/Vol] 1538 U/LHigh7-52The [facility] Physician GroupComment on above:Performed By: #### DIFF CBC, CMP, PT, LACTIC ####[place] [address] USAAnion gap [Moles/Vol]11.4 mmol/LNormal6.0-15.0The [facility] Of The University Of PennsylvaniaComment on above:Performed By: #### DIFF CBC, CMP, PT, LACTIC ####[place] [address] [place] AST [Catalytic activity/Vol]2548 U/EZdxj96-73Pzy [facility] Comment on above:Performed By: #### DIFF CBC, CMP, PT, LACTIC ####[place] [address] USABilirubin [Mass/Vol] 1.9 mg/dLHigh0.3-1.0The [facility] Physician GroupComment on above:Result Comment: Samples from patients who have taken Naproxen have shown spurious elevation in Total Bilirubin levels. A metabolite of Naproxen, O- desmethylnaproxen, has been shown to interfere with the Amariik-Mark method for measuring Total Bilirubin.Performed By: #### DIFF CBC, CMP, PT, LACTIC ####[address] [address] USACalcium [Mass/Vol]6.9 mg/dLLow8.6-10.3The [facility] Physician GroupComment on above: Performed By: #### DIFF CBC, CMP, PT, LACTIC ####[place] [address] USAChloride [Moles/Vol]117 mmol/LHigh 98-107The [facility] Physician GroupComment on above:Performed By: #### DIFF CBC, CMP, PT, LACTIC ####[address] [place] [address] USACO2 [Moles/Vol]19.2 mmol/LLow21.0-31.0The [facility] Comment on above:Performed By: #### DIFF CBC, CMP, PT, LACTIC ####[place] [address] USACreatinine [Mass/Vol] 1.42 mg/dLHigh0.60-1.20The [facility] Physician GroupComment on above:Performed By: #### DIFF CBC, CMP, PT, LACTIC ####[place] [address] USACreatinine Clr Calc Lquobija81.74NoMission Family Health Center Physician [facility] HospitalComment on above:Result Comment: PERFORMED BY:[address]ETGaloBREWSTER, [place] [phone] MEDICAL JACKELYN VÁZQUEZ M.D.Performed By: #### DIFF CBC, CMP, PT, LACTIC ####[place] [address] [place] GFR/1.73 sq M.predicted MDRD (S/P/Bld) [Vol rate/Area]38.812 mL/min/{1.73_m2} NormalThe [facility] Physician [facility] HospitalComment on above:Performed By: #### DIFF CBC, CMP, PT, LACTIC ####[place] [address] USAGlobulin (S) [Mass/Vol]1.9 g/dLCedars Medical Center Physician [facility] Comment on above:Performed By: #### DIFF CBC, CMP, PT, LACTIC ####[place] [address] USAGlucose [Mass/Vol]114 mg/qZKovd07-827Wwj [facility] Physician GroupComment on above:Result Comment: Random Glucose Reference Range is dependent on time and content of last meal. Glucose of more than 200 mg/dL in a nonstressed, ambulatory subject supports the diagnosis of Diabetes Mellitus. ADA recommended reference rangePerformed By: #### DIFF CBC, CMP, PT, LACTIC ####[address] [place] [address] USAPotassium [Moles/Vol]3.6 mmol/LNormal3.5-5.1The [facility] Physician GroupComment on above:Performed By: #### DIFF CBC, CMP, PT, LACTIC ####[place] [address] [facility] Protein [Mass/Vol]4.4 g/dLLow6.4-8.9The [facility] Physician GroupComment on above:Performed By: #### DIFF CBC, CMP, PT, LACTIC ####[place] [address] USASodium [Moles/Vol]144 mmol/L Rxwcum091-383Brr [facility] Physician GroupComment on above:Performed By: #### DIFF CBC, CMP, PT, LACTIC ####[place] [address] USAUrea nitrogen [Mass/Vol]31 mg/dLHigh7-25The [facility] Physician GroupComment on above:Performed By: #### DIFF CBC, CMP, PT, LACTIC ####[place] [address] [place] Albumin [Mass/Vol]2.9 g/dLLow3.5-5.7The [facility] Physician GroupComment on above:Performed By: #### CMP, DIFF CBC ####[place] [address] USAALP [Catalytic activity/Vol]184 U/LDyzu92-142 The [facility] Physician GroupComment on above:Performed By: #### CMP, DIFF CBC ####[place] [address] USAALT [Catalytic activity/Vol]109 U/LHigh7-52The [facility] Physician GroupComment on above:Performed By: #### CMP, DIFF CBC ####[place] [address] USAAnion gap [Moles/Vol]15.1 mmol/LHigh6.0-15.0 The [facility] Physician GroupComment on above:Performed By: #### CMP, DIFF CBC ####[facility] [place] [address] USAAST [Catalytic activity/Vol]168 U/NYiag32-32Lxk [facility] Physician GroupComment on above:Performed By: #### CMP, DIFF CBC ####[address] [address] USABilirubin [Mass/Vol]1.8 mg/dLHigh0.3-1.0The [facility] Physician GroupComment on above:Result Comment: Samples from patients who have taken Naproxen have shown spurious elevation in Total Bilirubin levels. A metabolite of Naproxen, O-desmethylnaproxen, has been shown to interfere with the Jenchandrakant-Mark method for measuring Total Bilirubin.Performed By: #### CMP, DIFF CBC ####[address] [address] USACalcium [Mass/Vol]7.7 mg/dLLow8.6-10.3The [facility] Comment on above:Performed By: #### CMP, DIFF CBC ####[address] [address] USAChloride [Moles/Vol]114 mmol/LHigh 98-107The [facility] Physician GroupComment on above:Performed By: #### CMP, DIFF CBC ####[address] [address] [place] CO2 [Moles/Vol]17.3 mmol/LLow21.0-31.0The [facility] Physician GroupComment on above:Performed By: #### CMP, DIFF CBC ####[address] [address] USACreatinine [Mass/Vol]1.28 mg/dLHigh0.60-1.20 The [facility] Physician GroupComment on above:Performed By: #### CMP, DIFF CBC ####[address] [address] [place] Creatinine Clr Calc Njtomhqq75.54NormalThe [facility] Physician GroupComment on above:Result Comment: PERFORMED BY:[address] [place], [place] [phone] MEDICAL DIRECTORCARLOS VÁZQUEZ M.D.Performed By: #### CMP, DIFF CBC ####[address] [address] USAGFR/1.73 sq M.predicted MDRD (S/P/Bld) [Vol rate/Area]43.960 mL/min/{1.73_m2}NormalThe [facility] Physician GroupComment on above:Performed By: #### CMP, DIFF CBC ####[place] [address] USAGlobulin (S) [Mass/Vol]2.3 g/dLNormalThCascade Medical Center Physician GroupComment on above:Performed By: #### CMP, DIFF CBC ####[place] [address] USAGlucose [Mass/Vol]144 mg/dUZdsm14-839Dvo [facility] Physician GroupComment on above: Result Comment: Random Glucose Reference Range is dependent on time and content of last meal. Glucose of more than 200 mg/dL in a nonstressed, ambulatory subject supports the diagnosis of Diabetes Mellitus. ADA recommended reference rangePerformed By: #### CMP, DIFF CBC ####[place] [address] USAPotassium [Moles/Vol]4.4 mmol/LNormal3.5-5.1 The [facility] Physician GroupComment on above:Performed By: #### CMP, DIFF CBC ####[place] [address] USAProtein [Mass/Vol]5.2 g/dLLow6.4-8.9The [facility] Physician GroupComment on above: Performed By: #### CMP, DIFF CBC ####[address] [address] USASodium [Moles/Vol]142 mmol/DRcaprd265-429Bhg [facility] Physician GroupComment on above:Performed By: #### CMP, DIFF CBC ####[place] [address] USAUrea nitrogen [Mass/Vol]28 mg/dLHigh7-25The [facility] Physician GroupComment on above:Performed By: #### CMP, DIFF CBC ####[place] [address] USADiff and CBCon 25-04-8898Ljpdnpmukytg Ql (Bld) [facility] hospital Physician GroupComment on above:Performed By: #### DIFF CBC, CMP, PT, LACTIC ####[place] [address] USAPerformed By: #### CMP, DIFF CBC ####[place] [address] USABand form neutrophils/100 WBC (Bld)5 %Normal0-5The [facility] Physician GroupComment on above:Performed By: #### DIFF CBC, CMP, PT, LACTIC ####[place] [address] USAPerformed By: #### CMP, DIFF CBC ####[place] [address] [place] Dohle BodiesSlightCedars Medical Center Physician GroupComment on above:Performed By: #### DIFF CBC, CMP, PT, LACTIC ####[place] [address] USAErythrocyte distribution width (RBC) [Ratio]16.8 % High11.9-15.3The [facility] Physician GroupComment on above:Performed By: #### DIFF CBC, CMP, PT, LACTIC ####[place] [address] USAHematocrit (Bld) [Volume fraction]30.2 %Low34.0-46.4 The [facility] Physician GroupComment on above:Performed By: #### DIFF CBC, CMP, PT, LACTIC ####[place] [address] USAHemoglobin (Bld) [Mass/Vol]10.1 g/dLLow11.8-15.4The [facility] Comment on above:Performed By: #### DIFF CBC, CMP, PT, LACTIC ####[address] [address] USAHypochromasiaSlight NormalThe [facility] Physician GroupComment on above:Performed By: #### DIFF CBC, CMP, PT, LACTIC ####[address] [address] USAPerformed By: #### CMP, DIFF CBC ####[address] [address] USALymphocytes/100 WBC (Bld)4 %Uno45-42 The [facility] Physician GroupComment on above:Performed By: #### DIFF CBC, CMP, PT, LACTIC ####[address] [address] USAPerformed By: #### CMP, DIFF CBC ####[address] [address] [facility] (RBC) [Entitic mass]27.8 gvNrgiew56.7-34.3 The [facility] Physician GroupComment on above:Performed By: #### DIFF CBC, CMP, PT, LACTIC ####[address] [address] [facility] (RBC) [Entitic vol]83.2 pQRdzfud00-966Roj [facility] Comment on above:Performed By: #### DIFF CBC, CMP, PT, LACTIC ####[address] [address] USAMean Corpuscular HGB Conc33.4 g/bTIiwcgu44.0-35.0The [facility] Physician GroupComment on above: Performed By: #### DIFF CBC, CMP, PT, LACTIC ####[address] [address] USAMetamyelocytes1 %High0-0The [facility] Physician GroupComment on above:Performed By: #### DIFF CBC, CMP, PT, LACTIC ####[address] [address] [place] Monocytes/100 WBC (Bld)9 %Normal2-11The [facility] Physician GroupComment on above:Performed By: #### DIFF CBC, CMP, PT, LACTIC ####[address] [address] USAMyelocytes1 %High0-0The [facility] Physician GroupComment on above:Performed By: #### DIFF CBC, CMP, PT, LACTIC ####[address] [address] [place] Performed By: #### CMP, DIFF CBC ####[address] [address] USANucleated Red Blood Cell1 /100{WBC}High0-0The [facility] Physician GroupComment on above:Performed By: #### DIFF CBC, CMP, PT, LACTIC ####[address] [address] [place] Performed By: #### CMP, DIFF CBC ####[address] [address] USAPlatelet EstimateNormalNormalNormHCA Florida Citrus Hospital Physician GroupComment on above:Performed By: #### DIFF CBC, CMP, PT, LACTIC ####[address] [address] [facility] Performed By: #### CMP, DIFF CBC ####[place] [id number] USAPlatelet mean volume (Bld) [Entitic vol]8.6 fLNormal 6.3-10.7The [facility] Physician GroupComment on above:Performed By: #### DIFF CBC, CMP, PT, LACTIC ####[address] [address] USAPlatelet MorphologyNormalNormalNormHCA Florida [facility] Hospital Physician GroupComment on above:Result Comment: PERFORMED BY:[address] [place], [place] [phone] MEDICAL JACKELYN VÁZQUEZ M.D.Performed By: #### DIFF CBC, CMP, PT, LACTIC ####[address] [address] [place] Performed By: #### CMP, DIFF CBC ####[address] [place] [address] USAPlatelets (Bld) [#/Vol]208 10*3/fGQdsmbm147-533Sgw [facility] Physician GroupComment on above:Performed By: #### DIFF CBC, CMP, PT, LACTIC ####[place] [address] [place] RBC (Bld) [#/Vol]3.63 10*6/uLNormal3.60-5.00The [facility] Physician GroupComment on above:Performed By: #### DIFF CBC, CMP, PT, LACTIC ####[place] [address] USASegmented neutrophils/100 WBC (Bld)80 %Nepf74-63Ngi [facility] Physician GroupComment on above:Performed By: #### DIFF CBC, CMP, PT, LACTIC ####[place] [address] USATarget CellsSlightCedars Medical Center Physician GroupComment on above:Performed By: #### DIFF CBC, CMP, PT, LACTIC ####[place] [address] USAToxic Vacuolation SlightCedars Medical Center Physician GroupComment on above:Performed By: #### DIFF CBC, CMP, PT, LACTIC ####[place] [address] USAPerformed By: #### CMP, DIFF CBC ####[place] [address] USAWBC (Bld) [#/Vol]9.1 10*3/uLNormal3.8-11.6The [facility] Physician GroupComment on above:Performed By: #### DIFF CBC, CMP, PT, LACTIC ####[place] [address] USAWhite Blood Count9.1 [CFU]/mLNormal3.8-11.6The [facility] Physician GroupComment on above:Performed By: #### DIFF CBC, CMP, PT, LACTIC ####[address] [address] [place] Dohle BodiesModerateNormalThe [facility] Physician GroupComment on above: Performed By: #### CMP, DIFF CBC ####[place] [address] USAErythrocyte distribution width (RBC) [Ratio]17.3 % High11.9-15.3The [facility] Physician GroupComment on above:Performed By: #### CMP, DIFF CBC ####[place] [address] USAHematocrit (Bld) [Volume fraction]33.6 %Low34.0-46.4The [facility] Physician GroupComment on above:Performed By: #### CMP, DIFF CBC ####[place] [address] USAHemoglobin (Bld) [Mass/Vol]10.8 g/dLLow11.8-15.4The [facility] Physician GroupComment on above: Performed By: #### CMP, DIFF CBC ####[place] [address] USAMCH (RBC) [Entitic mass]27.4 rsXyikxq67.7-34.3The [facility] Physician GroupComment on above:Performed By: #### CMP, DIFF CBC ####[place] [address] USAMCV (RBC) [Entitic vol]85.8 vUYkjyzy12-853Vga [facility] Physician GroupComment on above:Performed By: #### CMP, DIFF CBC ####[place] [address] USAMean Corpuscular HGB Conc32.0 g/dLNormal 32.0-35.0The [facility] Physician GroupComment on above:Performed By: #### CMP, DIFF CBC ####[place] [address] USAMonocytes/100 WBC (Bld)6 %Normal2-11The [facility] Physician GroupComment on above:Performed By: #### CMP, DIFF CBC ####[address] [address] USAOvalocytesSCrawley Memorial Hospital Physician GroupComment on above:Performed By: #### CMP, DIFF CBC ####[address] [address] USAPlatelet mean volume (Bld) [Entitic vol]8.7 fLNormal6.3-10.7The [facility] Physician GroupComment on above: Result Comment: PERFORMED BY:[address] [place], [place] [phone] MEDICAL JACKELYN VÁZQUEZ M.D.Performed By: #### CMP, DIFF CBC ####[address] [address] USAPlatelets (Bld) [#/Vol]272 10*3/uLNormal 150-450The [facility] Physician GroupComment on above:Performed By: #### CMP, DIFF CBC ####[address] [address] USAPoikilocytosisSCrawley Memorial Hospital Physician GroupComment on above: Performed By: #### CMP, DIFF CBC ####[address] [address] USAPolychromasiaSCrawley Memorial Hospital Physician GroupComment on above:Performed By: #### CMP, DIFF CBC ####[address] [address] USARBC (Bld) [#/Vol]3.92 10*6/uL Normal3.60-5.00[facility] Physician GroupComment on above:Performed By: #### CMP, DIFF CBC ####[address] [address] USASchistocytesSCrawley Memorial Hospital Physician GroupComment on above: Performed By: #### CMP, DIFF CBC ####[address] [address] USASegmented neutrophils/100 WBC (Bld)85 %Xsrm63-39EeySanta Rosa Medical Center Physician GroupComment on above:Performed By: #### CMP, DIFF CBC ####[facility] [place] [address] USAToxic GranulationSlightNoMission Family Health Center Physician [facility]am Memorial HospitalComment on above:Performed By: #### CMP, DIFF CBC ####[address] [address] USAWBC (Bld) [#/Vol]11.0 10*3/uLNormal3.8-11.6[facility] Physician GroupComment on above:Performed By: #### CMP, DIFF CBC ####[address] [address] USAWhite Blood Count11.0 [CFU]/mLNormal3.8-11.6The [facility] Physician GroupComment on above:Performed By: #### CMP, DIFF CBC ####[address] [address] USAECG 12 lead ECGon 65-33-5393BGZ 12 lead ECG NormalThe Hospital Of The University Of PennsylvaniaGlucose Poct Glucometerson 08-31-6772Lazuavr3 Glu2: Cleaned MeterNoSelect Medical Specialty Hospital - TrumbullComment on above:Result Comment: PERFORMED BY:[address] [place], [place] [phone] MEDICAL DIRECTORCARLOS VÁZQUEZ M.D.Performed By: #### GLULS ####Point of Care testing,Glucose [Mass/Vol]81 mg/dLMonticello HospitalComment on above:Result Comment: Random Glucose Reference Range is dependent on time and content of last meal. Glucose of more than 200 mg/dL in a nonstressed, ambulatory subject supports the diagnosis of Diabetes Mellitus.Performed By: #### GLULS ####Point of Care testing,Lactic Acid on 16-62-5859Dewqarq [Moles/Vol]3.2 mmol/LOff scale high0.5-1.9[facility] Physician [facility] Memorial HospitalComment on above:Result Comment: Critical Result : Called to and read back by: GIO TORRE at: 11/05/2024 13:00 by:MLG Lactic Acid reference range has been updated to 0.5 ? 1.9 mmol/L and the critical range of 2.0 or greater.PERFORMED BY:[place] [address] [address] SNYDERRadhaHUIMILTON, [place] [phone] MEDICAL JACKELYN VÁZQUEZ M.D.Performed By: #### DIFF CBC, CMP, PT, LACTIC ####[address] [address] USALactic Acid Reflexon 83-62-9283Uoydtb Acid Reflex2.0 mmol/LOff scale high0.5-1.9[facility] Physician GroupComment on above:Result Comment: Critical Result : Called to and read back by: ROXY RAYMOND at: 11/05/2024 16:42:19by:LFM Lactic Acid reference range has been updated to 0.5 ? 1.9 mmol/L and the critical range of 2.0 or greater.PERFORMED BY:[address]RI[address] SNYDERRadhaHUIMILTON, [place] [phone] MEDICAL JACKELYN VÁZQUEZ M.D.Performed By: #### LACTIC RFX ####[address] [address]DZINszwphltvgd Time INR on 21-41-8010KND Coag (PPP) [Relative time]1.4 {INR}NormalThe [facility] Physician GroupComment on above:Result Comment: INR [...] heart valves: 3 - 4.5PERFORMED BY:[place] [place] [address] [address] WETZELMIL[place], [place] [phone] MEDICAL JACKELYN VÁZQUEZ M.D.Performed By: #### DIFF CBC, CMP, PT, LACTIC ####[address] [place] [address] [place] PT Coag (PPP) [Time]15.4 sHigh9.0-12.9The Hospital Of The University Of PennsylvaniaComment on above:Result Comment: A hematocrit value greater than 55% may lead to inaccurate results in coagulation testing. Patients having hematocrit values >55% require a special collection tube for coagulation studies. Please contact the laboratory at [phone] for redraw instructions.Performed By: #### DIFF CBC, CMP, PT, LACTIC ####[address] [address] [place] XR abdomen 1Von 05-73-0277VO abdomen 1VNormEating Recovery Center a [facility] Comprehensive Metabolic Panelon 13-30-4314Bbwfcec [Mass/Vol]2.7 g/dLLow3.5-5.7 [facility] Physician [facility] HospitalComment on above:Performed By: #### CMP, DIFF CBC ####[place] [id number] [facility] Albumin/Globulin [Mass ratio]1.2 {ratio}NormalThe [facility] Physician [facility] Comment on above:Performed By: #### CMP, DIFF CBC ####[address] [address] USAALP [Catalytic activity/Vol]143 U/L Zrky47-516Xmu [facility] Physician [facility] HospitalComment on above:Performed By: #### CMP, DIFF CBC ####[address] [address] USAALT [Catalytic activity/Vol]12 U/LNormal7-52The [facility] Physician [facility] Comment on above:Performed By: #### CMP, DIFF CBC ####[address] [address] USAAnion gap [Moles/Vol]10.5 mmol/LNormal 6.0-15.0The Hospital Of The University Of PennsylvaniaComment on above:Performed By: #### CMP, DIFF CBC ####[address] [address] USAAST [Catalytic activity/Vol]28 U/GNetmse07-58Apd [facility] Comment on above:Performed By: #### CMP, DIFF CBC ####[address] [address] USABilirubin [Mass/Vol]0.6 mg/dLNormal 0.3-1.0The [facility] Physician GroupComment on above:Performed By: #### CMP, DIFF CBC ####[place] [address] USACalcium [Mass/Vol]6.7 mg/dLLow8.6-10.3The [facility] Physician GroupComment on above:Performed By: #### CMP, DIFF CBC ####[place] [address] USAChloride [Moles/Vol]113 mmol/NPsfg07-715Tpc [facility] Physician GroupComment on above:Performed By: #### CMP, DIFF CBC ####[place] [address] USACO2 [Moles/Vol]18.7 mmol/LLow21.0-31.0The [facility] Physician GroupComment on above: Performed By: #### CMP, DIFF CBC ####[place] [address] USACreatinine [Mass/Vol]1.15 mg/dLSignificant change down0.60-1.20The [facility] Physician GroupComment on above:Performed By: #### CMP, DIFF CBC ####[place] [address] USACreatinine Clr Calc Phkdeaqd40.63NormalThe [facility] Physician Group Comment on above:Result Comment: PERFORMED BY:[address] [place], [place] [phone] MEDICAL JACKELYN VÁZQUEZ M.D.Performed By: #### CMP, DIFF CBC ####[address] [address] USAGFR/1.73 sq M.predicted MDRD (S/P/Bld) [Vol rate/Area]49.989 mL/min/{1.73_m2}NormalThe [facility] Physician GroupComment on above:Performed By: #### CMP, DIFF CBC ####[place] [address] [place] Globulin (S) [Mass/Vol]2.3 g/dLNoMission Family Health Center Physician GroupComment on above:Performed By: #### CMP, DIFF CBC ####[place] [address] USAGlucose [Mass/Vol]135 mg/fPGxro56-723Diq [facility] Physician GroupComment on above:Result Comment: Random Glucose Reference Range is dependent on time and content of last meal. Glucose of more than 200 mg/dL in a nonstressed, ambulatory subject supports the diagnosis of Diabetes Mellitus. ADA recommended reference rangePerformed By: #### CMP, DIFF CBC ####[place] [address] [place] Potassium [Moles/Vol]3.2 mmol/LLow3.5-5.1The [facility] Physician GroupComment on above:Performed By: #### CMP, DIFF CBC ####[place] [address] USAProtein [Mass/Vol]5.0 g/dLLow6.4-8.9The [facility] Physician GroupComment on above:Performed By: #### CMP, DIFF CBC ####[place] [address] USASodium [Moles/Vol]139 mmol/LFiupbp333-288Aus [facility] Physician GroupComment on above: Performed By: #### CMP, DIFF CBC ####[place] [address] USAUrea nitrogen [Mass/Vol]27 mg/dLSignificant change down7-25The [facility] Physician GroupComment on above:Performed By: #### CMP, DIFF CBC ####[place] [address] USADiff and CBCon 47-31-6048Wosqfzyihybf Ql (Bld)SlightNormHCA Florida Citrus Hospital Physician GroupComment on above:Performed By: #### CMP, DIFF CBC ####[place] [address] USABand form neutrophils/100 WBC (Bld)25 %High0-5The [facility] Physician GroupComment on above:Performed By: #### CMP, DIFF CBC ####[address] [address] USACrenated RBCSlightCedars Medical Center Physician GroupComment on above:Performed By: #### CMP, DIFF CBC ####[address] [address] USADohle BodiesSlight NormalThe [facility] Physician GroupComment on above:Performed By: #### CMP, DIFF CBC ####[address] [address] [place] Erythrocyte distribution width (RBC) [Ratio]17.1 %High11.9-15.3The [facility] Physician GroupComment on above:Performed By: #### CMP, DIFF CBC ####[address] [address] USAHematocrit (Bld) [Volume fraction]32.6 %Low34.0-46.4The [facility] Physician GroupComment on above:Performed By: #### CMP, DIFF CBC ####[address] [address] USAHemoglobin (Bld) [Mass/Vol]10.8 g/dLLow 11.8-15.4The [facility] Physician GroupComment on above:Performed By: #### CMP, DIFF CBC ####[address] [address] USAHypochromasiaSCrawley Memorial Hospital Physician GroupComment on above: Performed By: #### CMP, DIFF CBC ####[address] [address] USALymphocytes/100 WBC (Bld)2 %Vtw50-78Ugw [facility] Physician GroupComment on above:Performed By: #### CMP, DIFF CBC ####[address] [address] USAMCH (RBC) [Entitic mass]27.5 ecXsxemo93.7-34.3The [facility] Physician GroupComment on above: Performed By: #### CMP, DIFF CBC ####[address] [address] USAMCV (RBC) [Entitic vol]83.3 iZKmlhyy28-448Qjv [facility] Physician GroupComment on above:Performed By: #### CMP, DIFF CBC ####[address] [address] USAMean Corpuscular HGB Conc33.0 g/dCRbyyeh52.0-35.0The [facility] Physician GroupComment on above:Performed By: #### CMP, DIFF CBC ####[address] [address] USAMetamyelocytes1 %High0-0The [facility] Physician GroupComment on above:Performed By: #### CMP, DIFF CBC ####[address] [address] USAMonocytes/100 WBC (Bld)11 %Normal2-11The [facility] Physician GroupComment on above:Performed By: #### CMP, DIFF CBC ####[address] [address] USAOvalocytesSlightNoMission Family Health Center Physician GroupComment on above: Performed By: #### CMP, DIFF CBC ####[address] [address] USAPlatelet EstimateNormalNormalNormHCA Florida Citrus Hospital Physician GroupComment on above:Performed By: #### CMP, DIFF CBC ####[address] [address] USAPlatelet mean volume (Bld) [Entitic vol]8.5 fLNormal6.3-10.7The [facility] Physician GroupComment on above:Performed By: #### CMP, DIFF CBC ####[address] [address] USAPlatelet MorphologyNormalNormalNormHCA Florida Citrus Hospital Physician GroupComment on above:Result Comment: PERFORMED BY:[address] [place] [phone] MEDICAL DIRECTORMARIO S KATHIE M.D.Performed By: #### CMP, DIFF CBC ####[address] [address] [place] Platelets (Bld) [#/Vol]297 10*3/yVReyfaf517-457Pde [facility] Physician Group Comment on above:Performed By: #### CMP, DIFF CBC ####[address] [address] USAPoikilocytosisSCrawley Memorial Hospital Physician GroupComment on above:Performed By: #### CMP, DIFF CBC ####[address] [address] USA PolychromasiaSCrawley Memorial Hospital Physician GroupComment on above:Performed By: #### CMP, DIFF CBC ####[address] [address] USAPromyelocytes1 %High0-0The [facility] Physician [facility] Comment on above:Performed By: #### CMP, DIFF CBC ####[address] [address] USARBC (Bld) [#/Vol]3.91 10*6/uLNormal 3.60-5.00The [facility] Physician GroupComment on above:Performed By: #### CMP, DIFF CBC ####[address] [address] USASegmented neutrophils/100 WBC (Bld)60 %Xipoxh82-27Mzv [facility] Physician GroupComment on above:Performed By: #### CMP, DIFF CBC ####[address] [address] USAToxic VacuolationSlightNormal The [facility] Physician GroupComment on above:Performed By: #### CMP, DIFF CBC ####[address] [address] USAWBC (Bld) [#/Vol]13.2 10*3/uLHigh3.8-11.6The [facility] Physician GroupComment on above:Performed By: #### CMP, DIFF CBC ####[address] [place] [address] USAWhite Blood Count13.2 [CFU]/mLHigh3.8-11.6The [facility] Physician GroupComment on above:Performed By: #### CMP, DIFF CBC ####[address] [address] USAGlucose Poct Glucometerson 74-55-6894Wbifsyz0Oft2: Cleaned MeterNoMission Family Health Center Physician [facility] Memorial HospitalComment on above:Result Comment: PERFORMED BY:[place] [address] [address] [place], [place] [phone] MEDICAL DIRECTORCARLOS VÁZQUEZ M.D.Performed By: #### GLULS ####Point of Care testing, Glucose [Mass/Vol]108 mg/dLCedars Medical Center Physician [facility] Memorial HospitalComment on above: Result Comment: Random Glucose Reference Range is dependent on time and content of last meal. Glucose of more than 200 mg/dL in a nonstressed, ambulatory subject supports the diagnosis of Diabetes Mellitus.Performed By: #### GLULS ####Point of Care testing,Vancomycin,Randomon 05-44-8152Nwfpodxlfk,Pntdms09.3 Normal5.0-20.0The [facility] Physician GroupComment on above:Order Comment: Date of last dose?: [id number] Time of last dose?: 1829Result Comment: Last dose: - PERFORMED BY:[place] [address] [address] ABHISHEKGaloRadhaHUIMILTON, [place] [phone] MEDICAL JACKELYN VÁZQUEZ M.D.Performed By: #### VANCR ####[address] [address] USAAerobic Cultureon 47-74-9786Ubfxxce CultureNoMission Family Health Center Physician [facility] HospitalComment on above:Performed By: #### GS, AERC ####[address] [address] USAComprehensive Metabolic Panelon 71-29-3128Cmdhnno [Mass/Vol]2.7 g/dLLow3.5-5.7The [facility] Physician Group Comment on above:Performed By: #### PHOS, CMP, DIFF CBC, MG, CALLIE ####[place] [address] USAAlbumin/Globulin [Mass ratio]1.2 {ratio}NormalThe [facility] Physician GroupComment on above: Performed By: #### PHOS, CMP, DIFF CBC, MG, CALLIE ####[place] [address] USAALP [Catalytic activity/Vol]166 U/L Juas48-919Doh [facility] Physician GroupComment on above:Performed By: #### PHOS, CMP, DIFF CBC, MG, CALLIE ####[place] [address] USAALT [Catalytic activity/Vol]13 U/LNormal7-52The [facility] Physician GroupComment on above:Performed By: #### PHOS, CMP, DIFF CBC, MG, CALLIE ####[place] [address] USAAnion gap [Moles/Vol]12.4 mmol/LNormal6.0-15.0The [facility] Physician GroupComment on above:Performed By: #### PHOS, CMP, DIFF CBC, MG, CALLIE ####[place] [address] USAAST [Catalytic activity/Vol]28 U/WSnxhxu71-13Ckr [facility] Physician GroupComment on above:Performed By: #### PHOS, CMP, DIFF CBC, MG, CALLIE ####[place] [address] USABilirubin [Mass/Vol]0.5 mg/dLNormal0.3-1.0The [facility] Physician GroupComment on above:Performed By: #### PHOS, CMP, DIFF CBC, MG, CALLIE ####[place] [address] USACalcium [Mass/Vol]7.0 mg/dLSignificant change down8.6-10.3The [facility] Physician GroupComment on above:Performed By: #### PHOS, CMP, DIFF CBC, MG, CALLIE ####[place] [address] [place] Chloride [Moles/Vol]111 mmol/OFwai96-200Qqz [facility] Physician GroupComment on above:Performed By: #### PHOS, CMP, DIFF CBC, MG, CALLIE ####[place] [address] USACO2 [Moles/Vol]20.2 mmol/LLow 21.0-31.0The [facility] Physician GroupComment on above:Performed By: #### PHOS, CMP, DIFF CBC, MG, CALLIE ####[place] [address] USACreatinine [Mass/Vol]2.08 mg/dLSignificant change down 0.60-1.20The [facility] Physician GroupComment on above:Performed By: #### PHOS, CMP, DIFF CBC, MG, CALLIE ####[place] [address] USACreatinine Clr Calc Uccbrjlf46.39NormHCA Florida Citrus Hospital Physician GroupComment on above:Performed By: #### PHOS, CMP, DIFF CBC, MG, CALLIE ####[address] GFR/1.73 sq M.predicted MDRD (S/P/Bld) [Vol rate/Area]24.549 mL/min/{1.73_m2} NormalThe [facility] Physician GroupComment on above:Performed By: #### PHOS, CMP, DIFF CBC, MG, CALLIE ####[address] StreetGlobulin (S) [Mass/Vol]2.2 g/dLNoMission Family Health Center Physician GroupComment on above:Performed By: #### PHOS, CMP, DIFF CBC, MG, CALLIE ####[address] Glucose [Mass/Vol]143 mg/tHLeqq82-928Lzu [facility] Physician GroupComment on above:Result Comment: Random Glucose Reference Range is dependent on time and content of last meal. Glucose of more than 200 mg/dL in a nonstressed, ambulatory subject supports the diagnosis of Diabetes Mellitus. ADA recommended reference rangePerformed By: #### PHOS, CMP, DIFF CBC, MG, CALLIE ####[place] [address] USAPotassium [Moles/Vol] 3.6 mmol/LSignificant change down3.5-5.1The [facility] Physician GroupComment on above:Performed By: #### PHOS, CMP, DIFF CBC, MG, CALLIE ####[place] [address] USAProtein [Mass/Vol]4.9 g/dLLow 6.4-8.9The [facility] Physician [facility] HospitalComment on above:Performed By: #### PHOS, CMP, DIFF CBC, MG, CALLIE ####[place] [address] USASodium [Moles/Vol]140 mmol/LSignificant change bqsg567-680 The [facility] Physician [facility] HospitalComment on above:Performed By: #### PHOS, CMP, DIFF CBC, MG, CALLIE ####[place] [address] USAUrea nitrogen [Mass/Vol]63 mg/dLHigh7-25ThCascade Medical Center Physician Group Comment on above:Performed By: #### PHOS, CMP, DIFF CBC, MG, CALLIE ####[address] [address] USACortisolon 11-03-2024 Whgvbocz98.6 ug/dLNormalThe [facility] Physician [facility] HospitalComment on above:Result Comment: Reference range: AM 6 - 24 ug/dl PM <10 ug/dl [facility] Laboratory administrative appeals tribunal member and method: CIARAN UNICEL DXI, POLYCLONAL ANTIBODY CORTISOL ASSAY.PERFORMED BY:[address] [id number] MEDICAL DIRECTORCARLOS VÁZQUEZ M.D.Performed By: #### PHOS, CMP, DIFF CBC, MG, CALLIE ####[place] [address] USADiff and CBCon 90-84-6030Timgqbcvrpet Ql (Bld)Slight NormalThe [facility] Physician GroupComment on above:Performed By: #### PHOS, CMP, DIFF CBC, MG, CALLIE ####[address] form neutrophils/100 WBC (Bld)28 %High0-5The [facility] Physician GroupComment on above:Performed By: #### PHOS, CMP, DIFF CBC, MG, CALLIE ####[place] [address] USACrenated RBCSCrawley Memorial Hospital Physician GroupComment on above: Performed By: #### PHOS, CMP, DIFF CBC, MG, CALLIE ####[place] [address] USADohle BodiesSCrawley Memorial Hospital Physician GroupComment on above:Performed By: #### PHOS, CMP, DIFF CBC, MG, CALLIE ####[address] Erythrocyte distribution width (RBC) [Ratio]17.0 %High11.9-15.3The [facility] Physician GroupComment on above:Performed By: #### PHOS, CMP, DIFF CBC, MG, CALLIE ####[address] Hematocrit (Bld) [Volume fraction]34.2 %Nnvqde12.0-46.4The [facility] Physician GroupComment on above:Performed By: #### PHOS, CMP, DIFF CBC, MG, CALLIE ####[address] Hemoglobin (Bld) [Mass/Vol]11.1 g/dLLow11.8-15.4The [facility] Physician Group Comment on above:Performed By: #### PHOS, CMP, DIFF CBC, MG, CALLIE ####[place] [address] USALymphocytes/100 WBC (Bld)5 %Bjm83-89Qih [facility] Physician GroupComment on above:Performed By: #### PHOS, CMP, DIFF CBC, MG, CALLIE ####[address]H (RBC) [Entitic mass]27.6 pdXmunwp86.7-34.3The [facility] Physician GroupComment on above:Performed By: #### PHOS, CMP, DIFF CBC, MG, CALLIE ####[address]V (RBC) [Entitic vol]84.8 eVJtmwof64-205Bis [facility] Physician Group Comment on above:Performed By: #### PHOS, CMP, DIFF CBC, MG, CALLIE ####[place] [address] USAMean Corpuscular HGB Conc32.6 g/mEUtogbe56.0-35.0The [facility] Physician GroupComment on above: Performed By: #### PHOS, CMP, DIFF CBC, MG, CALLIE ####[place] [address] USAMetamyelocytes4 %High0-0The [facility] Physician GroupComment on above:Performed By: #### PHOS, CMP, DIFF CBC, MG, CALLIE ####[place] [address] [place] Monocytes/100 WBC (Bld)5 %Normal2-11The [facility] Physician GroupComment on above:Performed By: #### PHOS, CMP, DIFF CBC, MG, CALLIE ####[place] [address] USAPlatelet EstimateNormalNormal NormalThe [facility] Physician GroupComment on above:Performed By: #### PHOS, CMP, DIFF CBC, MG, CALLIE ####[place] [address] USAPlatelet mean volume (Bld) [Entitic vol]8.3 fLNormal 6.3-10.7The [facility] Physician GroupComment on above:Result Comment: PERFORMED BY:[address]AlirioCHAD VILLE [phone] MEDICAL DIRECTORMARIO S KATHIE M.D.Performed By: #### PHOS, CMP, DIFF CBC, MG, CALLIE ####[place] [id number] USAPlatelet MorphologyNormalNormalNormHCA Florida [facility]rus Hospital Physician GroupComment on above:Result Comment: PERFORMED BY:[address] [phone] MEDICAL JACKELYN VÁZQUEZ M.D.Performed By: #### PHOS, CMP, DIFF CBC, MG, CALLIE ####[place] [address] [place] Platelets (Bld) [#/Vol]312 10*3/lPYgpmin646-065Pkf [facility] Physician Group Comment on above:Performed By: #### PHOS, CMP, DIFF CBC, MG, CALLIE ####[place] [address] USAPoikilocytosisSlight NormalThe [facility] Physician GroupComment on above:Performed By: #### PHOS, CMP, DIFF CBC, MG, CALLIE ####[place] [address] USARBC (Bld) [#/Vol]4.03 10*6/uLNormal3.60-5.00The [facility] Physician GroupComment on above:Performed By: #### PHOS, CMP, DIFF CBC, MG, CALLIE ####[place] [address] [place] Segmented neutrophils/100 WBC (Bld)58 %Xqlxzk46-30Zuh [facility] Physician [facility] Comment on above:Performed By: #### PHOS, CMP, DIFF CBC, MG, CALLIE ####[place] [address] USAToxic Vacuolation SlightNormalThe [facility] Physician GroupComment on above:Performed By: #### PHOS, CMP, DIFF CBC, MG, CALLIE ####[place] [address] USAWBC (Bld) [#/Vol]12.1 10*3/uLHigh3.8-11.6The [facility] Physician GroupComment on above:Performed By: #### PHOS, CMP, DIFF CBC, MG, CALLIE ####[address] [address] USAWhite Blood Count12.1 [CFU]/mLHigh3.8-11.6The [facility] Physician Group Comment on above:Performed By: #### PHOS, CMP, DIFF CBC, MG, CALLIE ####[address] [address] USAGram Stainon 38-60-7062Eojuzramaxt observation Gram stain Nom (Unsp spec)Gram Stain Result 2+ White Blood Cells Rare Epithelial Cells Rare Gram Positive Cocci PERFORMED BY: [facility] [address] [place] [address] PATHOLOGIST ORTHO TECH CARLOS VÁZQUEZ M.D.NormalThe [facility] Physician [facility] HospitalComment on above: Performed By: #### GS, AERC ####[address] [address] USAMagnesiumon 04-77-5258Obdzgfssy [Mass/Vol]1.9 mg/dL Normal1.9-2.7The [facility] Physician [facility] HospitalComment on above:Result Comment: PERFORMED BY:[address] [id number] MEDICAL DIRECTORCARLOS VÁZQUEZ M.D.Performed By: #### PHOS, CMP, DIFF CBC, MG, CALLIE ####[address] [address] USAPhosphoruson 41-55-7631Pkwrefkda [Mass/Vol]3.8 mg/dL Normal2.5-4.5The [facility] Physician GroupComment on above:Performed By: #### PHOS, CMP, DIFF CBC, MG, CALLIE ####[address] [address] USAVancomycin,Randomon 49-32-1347Epahjwpagl,Random8.9 Normal5.0-20.0[facility] Physician GroupComment on above:Order Comment: Date of last dose?: [id number] Time of last dose?: 1600Result Comment: Last dose: - PERFORMED BY:[address] [place], [place] [phone] MEDICAL JACKELYN VÁZQUEZ M.D.Performed By: #### VANCR ####[address] [address] USAXR chest 1V portableon 99-62-6348IJ chest 1V portableCedars Medical Center Physician GroupAlanine aminotransferase [Enzymatic activity/volume] in Serum or PlasmaOrdered By: Regina Garcia on 29-81-2724FTU [Catalytic activity/Vol]17 U/LNormal7-52Cleveland ClinicComment on above:Performed By: #### PT, DIFF CBC, PTT, TSH3, CMP, CK, HS TROP, CBC, LIPASE ####[address] [address] USAAlbumin [Mass/volume] in Serum or Plasma by Bromocresol green (BCG) dye binding methoOrdered By: Regina Garcia on 92-44-9289Rvunfti BCG dye [Mass/Vol]3.5 g/dL3.5-5.7FMcKitrick HospitalAlkaline phosphatase [Enzymatic activity/volume] in Serum or PlasmaOrdered By: Regina Garcia on 71-67-7742SFY [Catalytic activity/Vol] 243 U/UPujm76-747WxzapuakpCleveland ClinicComment on above:Performed By: #### PT, DIFF CBC, PTT, TSH3, CMP, CK, HS TROP, CBC, LIPASE ####[address] [place] [address] USAAmmonia [Moles/volume] in PlasmaOrdered By: Regina Garcia on 81-92-7111Pihgebh (P) [Moles/Vol]28 umol/RMkdefy31-26YontkvhhcCleveland ClinicComment on above:Result Comment: PERFORMED BY:[address] [place], [place] [phone] MEDICAL DIRECTORMARIO S KATHIE M.D.Performed By: #### LACTIC, ETOH, AMM ####[address] [place] [address] USAAmphetamine Screen Ql (U)Ordered By: Regina Garcia on 88-40-2953Jjfgmmqodvqh Ql (U)NegativeNegativeCleveland ClinicAnisocytosis [Presence] in Blood by Light microscopyOrdered By: Regina Garcia on 05-02-0540Ekjvtzqanmey Ql (Bld)SlightNormalCleveland ClinicComment on above:Performed By: #### PT, DIFF CBC, PTT, TSH3, CMP, CK, HS TROP, CBC, LIPASE ####[address] [place] [address] USAAppearance of UrineOrdered By: Regina Garcia on 67-27-3577Mmwvjrejzv (U)CloudyCritically abnormalCleVan Wert County HospitalComment on above:Order Comment: Name Collection Type:: Pandya Catheter Performed By: #### ADDONUAPLUS, URDS ####[id number] USAArterial Blood Gason 80-37-7337LSM Base Excess -8.5 mmol/LLow-3.0-3.0[facility] Physician GroupComment on above:Performed By: #### ABG ####Point of Care testing,ABG Frac Inspired O2100%NormalThe Hospital Of The University Of PennsylvaniaComment on above:Performed By: #### ABG ####Point of Care testing,ABG Oxygen Content8.0 mmol/LNormal6.6-9.7[facility] Physician GroupComment on above:Performed By: #### ABG ####Point of Care testing,ABG Oxygen Hirgnjawbn56.9 %Aegoyr22.0-100.0[facility] Physician GroupComment on above:Performed By: #### ABG ####Point of Care testing,ABG WYN762.6 mm[Hg]Low 35.0-45.0[facility] Physician GroupComment on above:Performed By: #### ABG ####Point of Care testing,ABG PH7.32Low7.35-7.45[facility] Physician [facility] Comment on above:Performed By: #### ABG ####Point of Care testing,ABG KY1288.9 mm[Hg]Off scale high80.0-100.0[facility] Physician GroupComment on above: Performed By: #### ABG ####Point of Care testing,CO2 [Moles/Vol]17.8 mmol/LLow 23.0-27.0[facility] Physician GroupComment on above:Performed By: #### ABG ####Point of Care testing,HCO3 (Bld) [Moles/Vol]16.7 mmol/LLow23.0-29.0[facility] Physician GroupComment on above:Performed By: #### ABG ####Point of Care testing,Respiratory CriticalCedars Medical Center Physician GroupComment on above:Result Comment: Critical Value called on: 11/02/2024 at 22:41PERFORMED BY:[facility] [place], [place] [phone] MEDICAL DIRECTORCARLOS VÁZQUEZ M.D.Performed By: #### ABG ####Point of Care testing,VBG Draw SiteLeft RadialCedars Medical Center Physician GroupComment on above:Performed By: #### ABG ####Point of Care testing,Aspartate aminotransferase [Enzymatic activity/volume] in Serum or PlasmaOrdered By: Regina Garcia on 36-53-8365PAE [Catalytic activity/Vol]41 U/ZQere11-38DvevruhiwCleveland ClinicComment on above:Performed By: #### PT, DIFF CBC, PTT, TSH3, CMP, CK, HS TROP, CBC, LIPASE ####[facility] [address] [place]inojos[place] [address] USABacteria [Presence] in Urine by AutomatedOrdered By: Regina Garcia on 64-94-7029Oexwtyen Auto Ql (U)None seen [HPF]None SeenCleveland ClinicBand form neutrophils/100 leukocytes in Blood by Manual countOrdered By: Regina Garcia on 25-87-5771Goli form neutrophils/100 WBC (Bld)24 %High0-5FMcKitrick Hospital Comment on above:Performed By: #### PT, DIFF CBC, PTT, TSH3, CMP, CK, HS TROP, CBC, LIPASE ####[facility] [address] [place] [address] USABarbiturates [Presence] in Urine by Screen methodOrdered By: Regina Garcia on 07-11-0510Spwpiqvmldwc Screen Ql (U)NegativeNegGood Samaritan HospitalBasophils Auto (Bld) [#/Vol]Ordered By: Regina Garcia on 33-53-6297Tlgehafjn (Bld) [#/Vol]N/[facility] Basophils/100 WBC Auto (Bld)Ordered By: Regina Garcia on 11-02-2024 Basophils/100 WBC (Bld)NKindred HealthcareBenzodiazepines Screen Ql (U)Ordered By: Regina Garcia on 86-03-8601Uqlkhbvlwbafzyp Ql (U) NegativeNegGood Samaritan HospitalBenzoylecgonine [Presence] in Urine by Screen methodOrdered By: Regina Garcia on 87-32-4852Rlfftxacnidlfvf Screen Ql (U)NegativeNegGood Samaritan HospitalBilirubin Test strip Ql (U)Ordered By: Regina Garcia on 37-05-8222Wkoxvdxaz Ql (U)Negative NegativeCleveland ClinicBilirubin.total [Mass/volume] in Serum or PlasmaOrdered By: Regina Garcia on 03-50-8404Skgdyaqqd [Mass/Vol]0.7 mg/dL Normal0.3-1.0Cleveland ClinicComment on above:Performed By: #### PT, DIFF CBC, PTT, TSH3, CMP, CK, HS TROP, CBC, LIPASE ####[facility] [address] [place] [address] USABlood Cultureon 43-29-3140Jrkktwro identified Cx Nom (Bld)JAYA Mccord notified AB 1508 NO GROWTH 5 DAYS PERFORMED BY: [facility] [address] [place] [address] PATHOLOGIST ORTHO TECH CARLOS VÁZQUEZ M.D.[facility] Physician GroupComment on above: Performed By: #### CUBLD ####[address] [place] [id number] USABacteria identified Cx Nom (Bld)JAYA Mccord notified AB 1508 NO GROWTH 5 DAYS PERFORMED BY: [facility] [id number] PATHOLOGIST ORTHO TECH CARLOS VÁZQUEZ M.D.[facility] Physician GroupComment on above: Performed By: #### CUBLD ####[id number] USABlood carbon dioxide, total measurement by calculation (moles/volume)Ordered By: Regina Garcia on 59-93-7216LU8 Calc (Bld) [Moles/Vol]20 mmol/PNln43-32JezaukfpnCleveland ClinicBlood hemoglobin measurement by calculation (mass/volume)Ordered By: Regina Garcia on 94-22-7865Xbzeazybiq (Bld) [Mass/Vol]15.3 g/cFNevdsh28.0-17.0Cleveland ClinicComment on above:Performed By: #### ERBMP ####[address] USABlood urea nitrogen (BUN) measurement in whole blood (mass/volume)Ordered By: Regina Garcia on 63-04-8701Poyy nitrogen [Mass/Vol]72 mg/dLHigh8-26Cleveland ClinicComment on above:Performed By: #### ERBMP ####[address] [address] USACT abdomen pelvis wo conon 11-02-2024 CT abdomen pelvis wo conNormalSanta Rosa Medical Center Physician GroupCT head/brain wo con on 55-43-7016BZ head/brain wo conNPaulding County HospitalCalcium [Mass/volume] in Serum or PlasmaOrdered By: Regina Garcia on 34-14-5515Ikqezol [Mass/Vol]9.1 mg/dLNormal8.6-10.3FMcKitrick HospitalComment on above:Performed By: #### PT, DIFF CBC, PTT, TSH3, CMP, CK, HS TROP, CBC, LIPASE ####[address] [place] [address] [place] Cannabinoids [Presence] in Urine by Screen methodOrdered By: Regina Garcia on 01-31-9885Slareffmmhxs Screen Ql (U)NegativeNegativeCleveland ClinicComment on above:These are unconfirmed results and should not be used for legal purposes. Drug Cut-Off Concentration: AMPH 1000 ng/mL VIRGILIO 200 ng/mL OSCAR 200 ng/mL COCM 300 ng/mL OP 300 ng/mL PCP 25 ng/mL THC 20 ng/mLCapillary blood glucose measurement by glucometer (mass/volume)Ordered By: Regina Garcia on 55-64-9268Pdumdys [Mass/Vol]121 mg/aHWccq19-403OpqcklkovCleveland Clinic Comment on above:Result Comment: PERFORMED BY:[address] [place], [place] [phone] MEDICAL DIRECTORCARLOS VÁZQUEZ M.D.Performed By: #### ERBMP ####[address] [address] USAGlucose [Mass/Vol]110 mg/dL NormalCleveland ClinicComment on above:Random Glucose Reference Range is dependent [...] Serum or PlasmaOrdered By: Regina Garcia on 82-33-9880PW9 [Moles/Vol]17.7 mmol/LLow21.0-31.0Cleveland ClinicComment on above:Performed By: #### PT, DIFF CBC, PTT, TSH3, CMP, CK, HS TROP, CBC, LIPASE ####[address] [place] [address] USAChloride [Moles/volume] in Serum or PlasmaOrdered By: Regina Garcia on 11-02-2024 Chloride [Moles/Vol]102 mmol/TVjswct15-868GqvggrkiqCleveland Clinic Comment on above:Performed By: #### PT, DIFF CBC, PTT, TSH3, CMP, CK, HS TROP, CBC, LIPASE ####[place] [address] USAColor of Urine by AutoOrdered By: Regina Garcia on 56-98-3545Yibcs (U)YellowNormalYellowCleveland ClinicComment on above:Order Comment: Name Collection Type:: Pandya CatheterPerformed By: #### ADDONUAPLUS, URDS ####[place] [facility] Complete Blood Count Auto Diffon 74-22-1035Ypdk Corpuscular HGB Conc33.0 g/dL Jwnqcd22.0-35.0The [facility] Physician GroupComment on above:Performed By: #### PT, DIFF CBC, PTT, TSH3, CMP, CK, HS TROP, CBC, LIPASE ####[place] [address] USAWhite Blood Count9.1 [CFU]/mL Normal3.8-11.6The [facility] Physician GroupComment on above:Performed By: #### PT, DIFF CBC, PTT, TSH3, CMP, CK, HS TROP, CBC, LIPASE ####[place] USAComprehensive Metabolic Panel on 95-29-2257Pyscagh [Mass/Vol]3.5 g/dLNormal3.5-5.7The [facility] Physician GroupComment on above:Performed By: #### PT, DIFF CBC, PTT, TSH3, CMP, CK, HS TROP, CBC, LIPASE ####[place] USAGFR/1.73 sq M.predicted MDRD (S/P/Bld) [Vol rate/Area]14.695 mL/min/{1.73_m2}NormalThe [facility] Hospital Physician GroupComment on above:Performed By: #### PT, DIFF CBC, PTT, TSH3, CMP, CK, HS TROP, CBC, LIPASE ####[address] [address] USACreatine kinase [Enzymatic activity/volume] in Serum or PlasmaOrdered By: Regina Garcia on 54-31-6412XP [Catalytic activity/Vol]140 U/VXqhbgh34-345UnpkpmefqCleveland ClinicComment on above:Performed By: #### PT, DIFF CBC, PTT, TSH3, CMP, CK, HS TROP, CBC, LIPASE ####[address] [address] USACreatinine [Mass/volume] in Serum or PlasmaOrdered By: Regina Garcia on 96-49-6215Fmzzfvvcht [Mass/Vol]3.19 mg/dLHigh0.60-1.20 Cleveland ClinicComment on above:Performed By: #### PT, DIFF CBC, PTT, TSH3, CMP, CK, HS TROP, CBC, LIPASE ####[address] [address] USADiff and CBCon 11-02-2024 Metamyelocytes4 %High0-0The [facility] Physician GroupComment on above:Performed By: #### PT, DIFF CBC, PTT, TSH3, CMP, CK, HS TROP, CBC, LIPASE ####[address] [address] USAMonocytes/100 WBC (Bld)33.42 %High0.00-20.00The [facility] Physician GroupComment on above:Result Comment: For adults in ED, MDW > 20.0 may be associated with a higher risk of sepsis during the first 12 hrs of hospital admission The predictive value of MDW for identifying sepsis in patients with hematological abnormalities has not been establishedPerformed By: #### PT, DIFF CBC, PTT, TSH3, CMP, CK, HS TROP, CBC, LIPASE ####[address] [address] USAMyelocytes1 %High0-0The [facility] Physician GroupComment on above: Performed By: #### PT, DIFF CBC, PTT, TSH3, CMP, CK, HS TROP, CBC, LIPASE ####[address] [address] [facility] Platelet EstimateNormalNormBayfront Health St. Petersburg Physician [facility] Memorial HospitalComment on above:Performed By: #### PT, DIFF CBC, PTT, TSH3, CMP, CK, HS TROP, CBC, LIPASE ####[address] [address] [place] Platelet MorphologyNormalNormBayfront Health St. Petersburg Physician Beacham Memorial HospitalComment on above:Result Comment: PERFORMED BY:[address] [place], [place] [phone] MEDICAL DIRECTORCARLOS VÁZQUEZ M.D.Performed By: #### PT, DIFF CBC, PTT, TSH3, CMP, CK, HS TROP, CBC, LIPASE ####[address] [address] USAToxic VacuolationSlightCedars Medical Center Physician [facility] Memorial HospitalComment on above:Performed By: #### PT, DIFF CBC, PTT, TSH3, CMP, CK, HS TROP, CBC, LIPASE ####[address] [address] USADipstick and Microscopicon 78-36-2014Hnnmuxcf,UrineNone SeenNormalNone SeenSanta Rosa Medical Center Physician [facility] Memorial HospitalComment on above:Order Comment: Name Collection Type:: Pandya CatheterPerformed By: #### ADDONUAPLUS, URDS ####[address] [address] USABilirubin,UrineNegativeNormalNegative The [facility] Physician GroupComment on above:Order Comment: Name Collection Type:: Pandya CatheterPerformed By: #### ADDONUAPLUS, URDS ####[address] [address] USAGlucose Ql (U)NormalNormal NormalThe [facility] Physician GroupComment on above:Order Comment: Name Collection Type:: Pandya CatheterPerformed By: #### ADDONUAPLUS, URDS ####[address] [place] [address] USAHyaline Casts,Zlmld13-54Mpyytl3-8Ztj [facility] Physician GroupComment on above:Order Comment: Name Collection Type:: Pandya CatheterPerformed By: #### JOSE LUIS, URDS ####[address] [place] [address] [place] Mucus,UrineRareNormalThe [facility] Physician GroupComment on above:Order Comment: Name Collection Type:: Pandya CatheterResult Comment: PERFORMED BY:[address] [place], [place] [phone] MEDICAL DIRECTORCARLOS VÁZQUEZ M.D.Performed By: #### JOSE LUIS, URDS ####[address] [address] USANitrite,UrineNegativeNormalNegativeThe [facility] Physician Group Comment on above:Order Comment: Name Collection Type:: Pandya CatheterPerformed By: #### JOSE LUIS, URDS ####[address] [place] [address] USAOccult Blood,UrineTraceNormalNegativeThe [facility] Physician GroupComment on above:Order Comment: Name Collection Type:: Pandya CatheterResult Comment: PERFORMED BY:[address] [place], [place] [phone] MEDICAL DIRECTORCARLOS VÁZQUEZ M.D.Performed By: #### JOSE LUIS, URDS ####[address] [place] [address] USARBC,Flhml9-9Notlae6-9Xlq [facility] Physician GroupComment on above:Order Comment: Name Collection Type:: Pandya Catheter Performed By: #### JOSE LUIS, URDS ####[address] [address] USASpecificy [place],Urine1.829Qcnivs6.001-1.030 The [facility] Physician GroupComment on above:Order Comment: Name Collection Type:: Pandya CatheterPerformed By: #### ADDONUAPLUS, URDS ####[address] [place] [address] USASquamous Epithelial Cell,Pivvz3-9Kmzdcg2-0Gzx [facility] Physician GroupComment on above:Order Comment: Name Collection Type:: Pandya CatheterPerformed By: #### ADDONUAPLUS, URDS ####[address] [address] [place] Urobilinogen,UrineNormalNormalNormalThe [facility] Physician GroupComment on above:Order Comment: Name Collection Type:: Pandya CatheterPerformed By: #### ADDONUAPLUS, URDS ####[address] [address] USAWBC,Bvslb0-4Itxdat8-2Zlp [facility] Physician GroupComment on above: Order Comment: Name Collection Type:: Pandya CatheterPerformed By: #### ADDONUAPLUS, URDS ####[address] [address] USADrug Screen,Urineon 92-87-2995Gdamevlzzjn Screen,UrineNegativeNormal NegativeThe [facility] Physician GroupComment on above:Performed By: #### ADDONUAPLUS, URDS ####[address] [address] USABarbiturate Screen,UrineNegativeNormalNegativeThe [facility] Physician GroupComment on above:Performed By: #### ADDONUAPLUS, URDS ####[address] [address] [place] Benzodiazepines Screen,UrineNegativeNormalNegativeThe [facility]ician Group Comment on above:Performed By: #### ADDONUAPLUS, URDS ####[address] [address] USACannabinoid Screen,Urine NegativeNormalNegativeThe [facility] Physician GroupComment on above:Result Comment: These are unconfirmed results and should not be used for legal purposes. Drug Cut-Off Concentration: AMPH 1000 ng/mL VIRGILIO 200 ng/mL OSCAR 200 ng/mL COCM 300 ng/mL OP 300 ng/mL PCP 25 ng/mL THC 20 ng/mLPERFORMED BY:[facility] [place], [place] [phone] MEDICAL DIRECTORCARLOS VÁZQUEZ M.D.Performed By: #### JOSE LUIS, URDS ####[facility] [address] [place] [address] USACocaine Screen,UrineNegativeNormalNegativeThe [facility] Physician GroupComment on above:Performed By: #### ANAPLUS, URDS ####[facility] [place] [address] USAOpiate Screen,Urine NegativeNormalNegativeThe [facility] Physician GroupComment on above:Performed By: #### JOSE LUIS, URDS ####[facility] [place] [address] USAPhencyclidine Screen,UrineNegativeNormalNegativeThe [facility] Physician GroupComment on above:Performed By: #### JOSE LUIS, URDS ####[facility] [place] [address] USAECG 12 lead ECGon 47-75-5100YER 12 lead ECGNormHCA Florida Citrus Hospital Physician GroupECG 12 lead ECGNoMission Family Health Center Physician [facility] Memorial HospitalEosinophils Auto (Bld) [#/Vol]Ordered By: Regina Garcia on 82-56-0592Oquebsmtybi (Bld) [#/Vol]N/[facility] TroyEosinophils/100 WBC Auto (Bld)Ordered By: Regina Garcia on 97-43-7746Iilokhxugxd/100 WBC (Bld)N/[facility] Epithelial cells.squamous [#/area] in Urine sediment by Automated countOrdered By: Regina Garcia on 71-12-4080Cgoeiwgfpy cells.squamous Auto (Urine sed) [#/Area]1-2 [HPF]0-2FMcKitrick HospitalErythrocyte distribution width [Ratio] by Automated countOrdered By: Regina Garcia on 11-02-2024 Erythrocyte distribution width (RBC) [Ratio]16.8 %High11.9-15.3FMcKitrick HospitalComment on above:Performed By: #### PT, DIFF CBC, PTT, TSH3, CMP, CK, HS TROP, CBC, LIPASE ####[address] [address] USAErythrocyte morphology finding [Identifier] in BloodOrdered By: Regina Garcia on 15-23-1975XBI morphology finding Nom (Bld) N/AFMcKitrick HospitalErythrocytes [#/area] in Urine sediment by Automated countOrdered By: Regina Garcia on 19-16-1427LAE Auto (Urine sed) [#/Area]1-2 [HPF]0-4FMcKitrick HospitalErythrocytes [#/volume] in Blood by Automated countOrdered By: Regina Garcia on 94-96-3143JNF (Bld) [#/Vol]4.65 10*6/uLNormal3.60-5.00C[facility] ClinicComment on above:Performed By: #### PT, DIFF CBC, PTT, TSH3, CMP, CK, HS TROP, CBC, LIPASE ####[address] [address] USAEthanol [Mass/volume] in Serum or PlasmaOrdered By: Regina Garcia on 11-02-2024 Ethanol [Mass/Vol]mg/dLNoSumma Health Wadsworth - Rittman Medical CenterComment on above: Performed By: #### LACTIC, ETOH, AMM ####[address] [address] USAEthyl Alcohol Profileon 29-53-4237Gejmoaq EthanolNot performedCedars Medical Center Physician GroupComment on above:Result Comment: PERFORMED BY:[address] [place], [place] [phone] MEDICAL DIRECTORCARLOS VÁZQUEZ M.D.Performed By: #### LACTIC, ETOH, AMM ####[address] [address] USAGlucose Poct Glucometerson 30-04-8867Veyyvgy8Lhi2: Cleaned [facility] Physician GroupComment on above:Result Comment: PERFORMED BY:[address] [place], [place] [phone] MEDICAL DIRECTORCARLOS VÁZQUEZ M.D.Performed By: #### GLULS ####Point of Care testing,Glucose [Mass/volume] in Serum or Plasma Ordered By: Regina Garcia on 91-00-8499Pnumvii [Mass/Vol]120 mg/rMBjsx24-023 [facility] ClinicComment on above:ADA recommended reference rangeRandom Glucose Reference [...] TSH3, CMP, CK, HS TROP, CBC, LIPASE ####[address] [place] [address] USAGlucose [Mass/volume] in Urine by Test stripOrdered By: Regina Garcia on 39-18-3724Ylpdfvx Test strip (U) [Mass/Vol] Normal mg/dLNoalCleveland ClinicHematocrit [Volume Fraction] of Blood by Automated countOrdered By: Regina Garcia on 65-47-2508Yywbntdulb (Bld) [Volume fraction]39.1 %Pzgdln17.0-46.4FMcKitrick Hospital Comment on above:Performed By: #### PT, DIFF CBC, PTT, TSH3, CMP, CK, HS TROP, CBC, LIPASE ####[address] [address] USAHemoglobin Test strip Ql (U)Ordered By: Regina Garcia on 11-02-2024 Hemoglobin Ql (U)TraceHighNegativeCleveland ClinicHemoglobin [Mass/volume] in BloodOrdered By: Regina Garcia on 17-59-9509Fvemoxxuod (Bld) [Mass/Vol]12.9 g/xUJckall14.8-15.4FMcKitrick HospitalComment on above:Performed By: #### PT, DIFF CBC, PTT, TSH3, CMP, CK, HS TROP, CBC, LIPASE ####[address] [place] [address] USAHyaline casts [#/area] in Urine sediment by Automated countOrdered By: Regina Garcia on 89-03-6858Icmzaud casts Auto (Urine sed) [#/Area]20-49 [LPF]High0-8Cleveland ClinicINR in Platelet poor plasma by Coagulation assayOrdered By: Regina Garcia on 75-08-3417MNR Coag (PPP) [Relative time]1.0 {INR}Normal Cleveland ClinicComment on above:INR Therapeutic Range A) Pre- and [...] TSH3, CMP, CK, HS TROP, CBC, LIPASE ####[address] [place] [address] USAISTAT ER Chem8+ Panelon 69-62-7607UW5 [Moles/Vol]20 mmol/LFor27-55Sfd [facility] Physician GroupComment on above:Performed By: #### ERBMP ####[place] [id number] USAISTAT Ionized Calcium1.20 mol/LNormal1.12-1.32The [facility] Physician GroupComment on above:Performed By: #### ERBMP ####[address] [place] [address] USAISTAT ER Chem8+ PanelOrdered By: Regina Garcia on 04-12-3266Wsotcjnqdy (Bld) [Volume fraction]45.0 %Uedwtd78.0-51.0[facility] Comment on above:Performed By: #### ERBMP ####[address] [address] USAKetones [Presence] in Urine by Test strip Ordered By: Reginanubia Garcia on 72-26-9394Yntmfvg Ql (U)NegativeNormalNegative [facility] ClinicComment on above:Order Comment: Name Collection Type:: Pandya CatheterPerformed By: #### ADDCHRISTELLEUAPLUS, URDS ####[address] [address] USALactate [Moles/volume] in Serum or PlasmaOrdered By: Regina Garcia on 11-02-2024 Lactate [Moles/Vol]2.7 mmol/LOff scale high0.5-1.9C[facility] ClinicComment on above:Critical Result : Called to and [...] the critical range of 2.0 or greater.PERFORMED BY:[address] [place], [place] [phone] MEDICAL JACKELYN VÁZQUEZ M.D.Performed By: #### LACTIC, ETOH, AMM ####[address] [address] USALactic Acidon 11-00-7121Ukjqvfn [Moles/Vol]1.4 mmol/LNormal0.5-1.9The [facility] Physician GroupComment on above:Order Comment: JAYA Mccord notified AB [address]Result Comment: Lactic Acid reference range has been updated to 0.5 ? 1.9 mmol/L and the critical range of 2.0 or greater.PERFORMED BY:[address] [place], [place] [phone] MEDICAL JACKELYN VÁZQUEZ M.D.Performed By: #### LACTIC ####[address] [address] USALeukocyte esterase [Presence] in Urine by Test stripOrdered By: Regina Garcia on 70-41-8632Ygvhczjrl esterase Test strip Ql (U)NegativeNormalNegativeCleveland ClinicComment on above:Order Comment: Name Collection Type:: Pandya Catheter Performed By: #### ADDONUAPLUS, URDS ####[address] [address] USALeukocytes [#/area] in Urine sediment by Automated countOrdered By: Regina Garcia on 45-30-8406VTQ Auto (Urine sed) [#/Area]1-2 [HPF]0-4FMcKitrick HospitalLeukocytes [#/volume] corrected for nucleated erythrocytes in Blood by Automated counOrdered By: Regina Garcia on 42-21-3274KSP corrected for nucl RBC Auto (Bld) [#/Vol]9.1 10*3/uL3.8-11.6FMcKitrick HospitalLeukocytes [#/volume] in Blood by Automated countOrdered By: Regina Garcia on 93-33-7483RTK (Bld) [#/Vol]9.1 10*3/uLNormal3.8-11.6FMcKitrick HospitalComment on above:Performed By: #### PT, DIFF CBC, PTT, TSH3, CMP, CK, HS TROP, CBC, LIPASE ####[address] [address] USALipase [Enzymatic activity/volume] in Serum or PlasmaOrdered By: Regina Garcia on 11-02-2024 Lipase [Catalytic activity/Vol]12.0 U/AAcwswo53.0-82.0Cleveland ClinicComment on above:Performed By: #### PT, DIFF CBC, PTT, TSH3, CMP, CK, HS TROP, CBC, LIPASE ####[place] [id number] USALymphocytes Auto (Bld) [#/Vol]Ordered By: Regina Garcia on 16-05-5805Rslgcgnwbul (Bld) [#/Vol]N/[facility] Lymphocytes/100 WBC Auto (Bld)Ordered By: Regina Garcia on 11-02-2024 Lymphocytes/100 WBC (Bld)N/[facility] TroyLymphocytes/100 leukocytes in Blood by Manual countOrdered By: Regina Garcia on 11-02-2024 Lymphocytes/100 WBC (Bld)5 %Pvo00-95GiddjrmdyCleveland ClinicComment on above:Performed By: #### PT, DIFF CBC, PTT, TSH3, CMP, CK, HS TROP, CBC, LIPASE ####[place] [id number] [facility] [place] [Entitic mass] by Automated countOrdered By: Regina Garcia on 93-36-2574JCJ (RBC) [Entitic mass]27.8 zoHfuxom40.7-34.3FMcKitrick Hospital Comment on above:Performed By: #### PT, DIFF CBC, PTT, TSH3, CMP, CK, HS TROP, CBC, LIPASE ####[place] [id number] [facility] Auto (RBC) [Mass/Vol]Ordered By: Regina Garcia on 42-56-2280ZFHC (RBC) [Mass/Vol]33.0 g/dL32.0-35.0[facility] CenterV [Entitic volume] by Automated countOrdered By: Regina Garcia on 87-30-4841YYS (RBC) [Entitic vol]84.1 lMYclmsj81-417KmabsgcjbCleveland ClinicComment on above:Performed By: #### PT, DIFF CBC, PTT, TSH3, CMP, CK, HS TROP, CBC, LIPASE ####[address] [place] [address] [place] Metamyelocytes/100 WBC Manual cnt (Bld)Ordered By: Regina Garcia on 11-02-2024 Metamyelocytes/100 WBC (Bld)4 %High0-0Cleveland ClinicMonocyte distribution width [Entitic volume] in Blood by AutomatedOrdered By: Regina Garcia on 01-45-7401Gbutovds distribution width Auto (Bld) [Entitic vol]33.42 % High0.00-20.00Cleveland ClinicComment on above:For adults in ED, MDW > 20.0 may be associated with a higher risk of sepsis during the first 12 hrs of hospital admissionThe predictive value of MDW for identifying sepsis in patients with hematological abnormalities has not been establishedMonocytes Auto (Bld) [#/Vol]Ordered By: Regina Garcia on 99-80-0615Gwjizlqpw (Bld) [#/Vol]N/[facility] TroyMonocytes/100 WBC Auto (Bld)Ordered By: Regina Garcia on 48-01-8468Qtymwitif/100 WBC (Bld)N/[facility] TroyMonocytes/100 leukocytes in Blood by Manual countOrdered By: Regina Garcia on 97-98-1481Ektpzxlqs/100 WBC (Bld)9 %Normal2-11Cleveland ClinicComment on above:Performed By: #### PT, DIFF CBC, PTT, TSH3, CMP, CK, HS TROP, CBC, LIPASE ####[address] [place] [address] USAMucus [Presence] in Urine by AutomatedOrdered By: Regina Garcia on 45-65-2199Qhaww Auto Ql (U)Rare [LPF]Cleveland ClinicMyelocytes/100 WBC Manual cnt (Bld)Ordered By: Regina Garcia on 91-31-9982Hcuavdysnb/100 WBC (Bld)1 %High0-0[facility] Neutrophils Auto (Bld) [#/Vol]Ordered By: Regina Garcia on 11-02-2024 Neutrophils (Bld) [#/Vol]N/[facility] TroyNeutrophils/100 WBC Auto (Bld)Ordered By: Regina Garcia on 38-13-9680Gwadhzdlyke/100 WBC (Bld)N/A Cleveland ClinicNitrite Test strip Ql (U)Ordered By: Regina Garcia on 45-52-1605Oywipch Ql (U)NegativeNegGood Samaritan HospitalNo Panel InformationOrdered By: Regina Garcia on 64-32-8338Bmgsq Gas Critical ValueSee [facility] HospitalComment on above: Critical Value called on: 11/02/2024 at 12:37Blood Gas Sample SiteVenous Cleveland ClinicFiO221 %Cleveland ClinicVenous Blood Base Excess-5.8 mmol/LLow-3.0-3.0Cleveland ClinicVenous Blood Oxygen Content7.4 mmol/L6.6-9.7FMcKitrick HospitalVenous Blood Oxygen Meuwvxxkxp63.4 %Critically high73.0-76.0Cleveland ClinicVenous Blood Partial Pressure CO238.1 mm[Hg]38.0-50.0Cleveland ClinicVenous Blood Partial Pressure O254.5 mm[Hg]High35.0-45.0Cleveland ClinicVenous Blood pH7.337.32-7.43Cleveland ClinicBedside Glucose CommentGlu2: cleaned UC Medical CenterEstimated GFR (CKD-EPI)14.695 mL/MinCleveland Clinic Pharmacy Creatinine Clearance (ChemN/[facility] TroyNucleated erythrocytes [Presence] in Blood by Automated countOrdered By: Regina Garcia on 78-28-3861Onnbcbjln RBC Auto Ql (Bld)N/[facility] Opiates [Presence] in Urine by Screen methodOrdered By: Regina Garcia on 45-42-8912Bfgvrja Screen Ql (U)NegativeNegGood Samaritan Hospital Partial Thromboplastin Timeon 40-83-2239jAHT Coag (Bld) [Time]30.9 sNormal 25.1-36.5The [facility] Physician GroupComment on above:Result Comment: A hematocrit value greater than 55% may lead to inaccurate results in coagulation testing. Patients having hematocrit values >55% require a special collection tube for coagulation studies. Please contact the laboratory at [phone] for redraw instructions.PERFORMED BY:[address] [place], [place] [phone] MEDICAL JACKELYN VÁZQUEZ M.D.Performed By: #### PT, DIFF CBC, PTT, TSH3, CMP, CK, HS TROP, CBC, LIPASE ####[address] [address] [facility] Phencyclidine Screen Ql (U)Ordered By: Regina Garcia on 11-02-2024 Phencyclidine Ql (U)NegativeNegativeCleveland ClinicPlatelet adequacy [Presence] in Blood by Light microscopyOrdered By: Regina Garcia on 46-51-2888Zyakbzhdm LM Ql (Bld)NormalMercy Health Lorain Hospital Platelet mean volume [Entitic volume] in Blood by Automated countOrdered By: Regina Garcia on 40-40-5949Iwwayvsk mean volume (Bld) [Entitic vol]8.3 fL Normal6.3-10.7FMcKitrick HospitalComment on above:Result Comment: PERFORMED BY:[address] [address] [place] [place], [place] [phone] MEDICAL JACKELYN VÁZQUEZ M.D.Performed By: #### PT, DIFF CBC, PTT, TSH3, CMP, CK, HS TROP, CBC, LIPASE ####[address] [address] USAPlatelet morphology finding [Identifier] in BloodOrdered By: Regina Garcia on 88-39-4161Ktmjprad morphology finding Nom (Bld)[facility] Platelets [#/volume] in Blood by Automated countOrdered By: Regina Garcia on 54-59-3663Zkrhlqcue (Bld) [#/Vol]325 10*3/oTSthard894-585VjihjnmobCleveland ClinicComment on above:Performed By: #### PT, DIFF CBC, PTT, TSH3, CMP, CK, HS TROP, CBC, LIPASE ####[address] [place] [address] USAPotassium [Moles/volume] in Serum or PlasmaOrdered By: Regina Garcia on 60-33-3941Eyuykbjka [Moles/Vol]5.3 mmol/LHigh3.5-5.1 Cleveland ClinicComment on above:Performed By: #### PT, DIFF CBC, PTT, TSH3, CMP, CK, HS TROP, CBC, LIPASE ####[address] [address] USAProtein [Mass/volume] in Serum or PlasmaOrdered By: Regina Garcia on 89-75-6620Uanmkkh [Mass/Vol]6.0 g/dLLow 6.4-8.9Cleveland ClinicComment on above:Performed By: #### PT, DIFF CBC, PTT, TSH3, CMP, CK, HS TROP, CBC, LIPASE ####[facility] ical [address] [place] [address] USAProtein [Mass/volume] in Urine by Test stripOrdered By: Regina Garcia on 12-66-0243Zkklagm (U) [Mass/Vol]30 mg/dLNormalNegativeCleveland ClinicComment on above:Order Comment: Name Collection Type:: Pandya CatheterPerformed By: #### ADDONUAPLUS, URDS ####[address] [address] [facility] Prothrombin time (PT)Ordered By: Regina Garcia on 48-59-9916SG Coag (PPP) [Time]11.6 sNormal9.0-12.9Cleveland ClinicComment on above:A hematocrit value greater than 55% may lead to inaccurate results in coagulation testing. Patientshaving hematocrit values >55% require a special collection tube for coagulation studies. Please contact the laboratory at [phone] for redraw instructions.Result Comment: A hematocrit value greater than 55% may lead to inaccurate results in coagulation testing. Patients having hematocrit values >55% require a special collection tube for coagulation studies. Please contact the laboratory at [phone] for redraw instructions.Performed By: #### PT, DIFF CBC, PTT, TSH3, CMP, CK, HS TROP, CBC, LIPASE ####[facility] [address] [place] [address] USASegmented neutrophils/100 leukocytes in Blood by Manual countOrdered By: Regina Garcia on 11-02-2024 Segmented neutrophils/100 WBC (Bld)58 %Gvdfoz51-06MusjzgctaCleveland ClinicComment on above:Performed By: #### PT, DIFF CBC, PTT, TSH3, CMP, CK, HS TROP, CBC, LIPASE ####[place] [id number] USASerum globulin measurement by calculation (mass/volume)Ordered By: Regina Garcia on 59-57-9849Trclxdhb (S) [Mass/Vol]2.5 g/dLNormalCleveland ClinicComment on above:Performed By: #### PT, DIFF CBC, PTT, TSH3, CMP, CK, HS TROP, CBC, LIPASE ####[place] [address] USASerum or plasma albumin/globulin mass ratioOrdered By: Regina Garcia on 81-24-4565Frmokkf/Globulin [Mass ratio]1.4 {ratio}Normal Cleveland ClinicComment on above:Performed By: #### PT, DIFF CBC, PTT, TSH3, CMP, CK, HS TROP, CBC, LIPASE ####[place] [address] USASerum or plasma anion gap determinationOrdered By: Regina Garcia on 83-01-7869Qrgnq gap [Moles/Vol]17.6 mmol/LHigh6.0-15.0Cleveland ClinicComment on above:Performed By: #### PT, DIFF CBC, PTT, TSH3, CMP, CK, HS TROP, CBC, LIPASE ####[place] [address] USASerum or plasma ethanol measurement (mass/volume)Ordered By: Regina Garcia on 11-02-2024 Ethanol [Mass/Vol]TNPCleveland ClinicComment on above:Test not performedSodium [Moles/volume] in Serum or PlasmaOrdered By: Regina Garcia on 87-35-7221Aacbvx [Moles/Vol]132 mmol/JWud324-214QgeahuupeCleveland ClinicComment on above:Performed By: #### PT, DIFF CBC, PTT, TSH3, CMP, CK, HS TROP, CBC, LIPASE ####[address] [place] [address] USASpecific gravity Test strip (U) [Rel density]Ordered By: Regina Garcia on 75-14-3775Vxqcfwwu gravity (U) [Rel density]1.0231.001-1.030[facility] Occult Blood (Guaiac)on 94-15-4471Emeep Occult Blood (Guaiac)NormalThe [facility] Hospital Physician GroupComment on above:Performed By: #### OB(GUAIAC) ####[address] [address]UFRTsxmm gastrointestinal hemoglobin detectionOrdered By: Regina Garcia on 89-66-0049Xvpujstgyd.gastrointestinal Ql (Stl)Cleveland ClinicThyrotropin [Units/volume] in Serum or PlasmaOrdered By: Regina Garcia on 78-16-7563SEY Qn2.44 m[IU]/LNormal0.45-5.33[facility] Comment on above:Result Comment: PERFORMED BY:[address] [place], [place] [phone] MEDICAL JACKELYN VÁZQUEZ M.D.Performed By: #### PT, DIFF CBC, PTT, TSH3, CMP, CK, HS TROP, CBC, LIPASE ####[address] [address] USAToxic leukocyte vacuolation detectionOrdered By: Regina Garcia on 53-68-2920Censebdhn toxic vacuoles LM Ql (Bld)SlightCleveland ClinicTroponin I High Sensitivityon 94-29-0779Htrpukrt I High Qvccrttlnsx69Mptr6-76Fyr [facility] Hospital Physician GroupComment on above:Result Comment: The Troponin units of report have been changed to meet the Chest Pain Accreditationrequirement, element EC5.M1l2. Troponin units are changed from pg/ml to ng/L. Also, the decimal is removed and results are in whole numbers.PERFORMED BY:[address] [place], [place] [phone] MEDICAL DIRECTORCARLOS VÁZQUEZ M.D.Performed By: #### PT, DIFF CBC, PTT, TSH3, CMP, CK, HS TROP, CBC, LIPASE ####[address] [place] [address] USATroponin I.cardiac [Mass/volume] in Serum or Plasma by Detection limit <= 0.01 ng/mLOrdered By: Regina Garcia on 09-97-2536Cihullqa I.cardiac DL <= 0.01 ng/mL [Mass/Vol]28 ng/LHigh0-15Cleveland ClinicComment on above:The Troponin units of report have been changed to meet the Chest Pain Accreditation requirement, element EC5.M1l2. Troponin units are changed from pg/ml to ng/L. Also, the decimal is removed and results are in whole numbers.Urea nitrogen [Mass/volume] in Serum or PlasmaOrdered By: Regina Garcia on 32-35-6358Docr nitrogen [Mass/Vol]77 mg/dLPrinceton Community Hospital7-25Cleveland ClinicComment on above: Performed By: #### PT, DIFF CBC, PTT, TSH3, CMP, CK, HS TROP, CBC, LIPASE ####[address] [address] [facility] Urobilinogen Test strip (U) [Mass/Vol]Ordered By: Regina Garcia on 11-02-2024 Urobilinogen (U) [Mass/Vol]Normal mg/dLNormalCleveland Clinic Venous Blood GasOrdered By: Regina Garcia on 13-18-2584KK5 [Moles/Vol]20.7 mmol/LLow24.0-29.0Cleveland ClinicComment on above:Performed By: #### VBG ####Point of Care testing,HCO3 (Bld) [Moles/Vol]19.5 mmol/LLow 23.0-29.0Cleveland ClinicComment on above:Performed By: #### VBG ####Point of Care testing,Venous Blood Gason 08-55-5704Tefchwgfuet Critical NormalThe [facility] Specialty Hospital Physician GroupComment on above:Result Comment: Critical Value called on: 11/02/2024 at 12:37PERFORMED BY:[facility] [place], [place] [phone] MEDICAL DIRECTORCARLOS VÁZQUEZ M.D.Performed By: #### VBG ####Point of Care testing, VBG Base Excess-5.8 mmol/LLow-3.0-3.0The [facility] Hospital Physician GroupComment on above:Performed By: #### VBG ####Point of Care testing,VBG Draw SiteVenousNormal The [facility] Hospital Physician GroupComment on above:Performed By: #### VBG ####Point of Care testing,VBG Frac Inspired O221 %NormalThe [facility] Physician Group Comment on above:Performed By: #### VBG ####Point of Care testing,VBG O2 Content 7.4 mmol/LNormal6.6-9.7The [facility] Hospital Physician GroupComment on above:Performed By: #### VBG ####Point of Care testing,VBG Oxygen Dtjfwafofh67.4 %Off scale high 73.0-76.0The [facility] Hospital Physician GroupComment on above:Performed By: #### VBG ####Point of Care testing,VBG EIE936.1 mm[Hg]Ybpsll88.0-50.0The [facility] Hospital Physician GroupComment on above:Performed By: #### VBG ####Point of Care testing,VBG PH Venous PH7.76Hkxqjr0.32-7.43The [facility] Hospital Physician GroupComment on above:Performed By: #### VBG ####Point of Care testing,VBG PO254.5 mm[Hg]High 35.0-45.0The [facility] Hospital Physician GroupComment on above:Performed By: #### VBG ####Point of Care testing,Whole blood chloride measurementOrdered By: Regina Garcia on 57-07-4990Kkhdiuli [Moles/Vol]102.0 mmol/ISufsvh86-445XmuicyifnCleveland ClinicComment on above:Performed By: #### ERBMP ####[place] [id number] USAWhole blood creatinine measurementOrdered By: Regina Garcia on 04-34-9692Khyeaqjtgh [Mass/Vol]3.3 mg/dLHigh0.6-1.3FMcKitrick HospitalComment on above: ER/ESD physician is notified/shown all ISTAT results.Critical values may be confirmed by laboratorytesting ifdeemed necessary by ER attending doctor.Result Comment: ER/ESD physician is notified/shown all ISTAT results. Critical values may be confirmed by laboratory testing if deemed necessary by ER attending doctor.Performed By: #### ERBMP ####[place] [address] USAWhole blood ionized calcium measurement (moles/volume)Ordered By: Regina Garcia on 93-79-7631Tzaxppy.ionized (Bld) [Moles/Vol]1200 mmol/L1.12-1.32Cleveland ClinicWhole blood potassium measurementOrdered By: Regina Garcia on 95-20-5514Azxlxtfwi [Moles/Vol]5.2 mmol/LHigh3.5-4.9Cleveland ClinicComment on above:Performed By: #### ERBMP ####[place] [address] USAWhole blood sodium measurementOrdered By: Regina Garcia on 94-32-9863Siwymc [Moles/Vol]135 mmol/WChi981-116PzqitkimjCleveland ClinicComment on above:Performed By: #### ERBMP ####[place] [address] USAX-ray reportOrdered By: Alvaro Reid on 07-77-8059Sgbfo reportMERCY HEALTH [facility] [address] [place] [address] [place] [address] XRay Report Signed Patient: Renuka Owen MR#: [id number] : 1950 Acct:[id number] Age/Sex: 73 / F ADM Date: 5 Loc: ER Room: Type: [facility] ER Attending Dr: Copies to: Regina [...] Reid M.D. 11/02/2024 3:05 PM Dictation Location: [facility]--20 Transcribed By: [facility] 11/02/24 1505 Dictated By: Alvaro Reid DO 11/02/24 1504 Signed By: 11/02/24 1505 [facility] ClinicXR chest 1V portableon 64-09-6911NI chest 1V portableCedars Medical Center Physician GroupaPTT in Platelet poor plasma by Coagulation assayOrdered By: Regina Garcia on 94-32-9611yFJO Coag (PPP) [Time] 30.9 s25.1-36.5FMcKitrick HospitalComment on above:A hematocrit value greater than 55% may lead to inaccurate results in coagulation testing. Patientshaving hematocrit values >55% require a special collection tube for coagulation studies. Please contact the laboratory at [phone] for redraw instructions.pH of Urine by Test stripOrdered By: Regina Garcia on 11-02-2024 pH (U)5.0 [pH]Normal5.0-9.0Cleveland ClinicComment on above: Order Comment: Name Collection Type:: Pandya CatheterPerformed By: #### ADDONUAPLUS, URDS ####[facility] [address] [place] [address] USABasophils Auto (Bld) [#/Vol]on 31-31-3498Qmuxfzfii (Bld) [#/Vol]0.1 10 3/uL0.0-0.1FMcKitrick HospitalBasophils/100 WBC Auto (Bld)on 50-50-8690Cmmpiuzqy/100 WBC (Bld)0.9 %0.2-2.0[facility] Eosinophils/100 WBC Auto (Bld)on 91-06-6730Iiyebziolmt/100 WBC (Bld)3.4 %0.9-7.0 Cleveland ClinicErythrocyte distribution width Auto (RBC) [Ratio]on 30-30-9884Qmhothelvvq distribution width (RBC) [Ratio]17.2 %High 11.0-15.0C[facility] ClinicEstimated glomerular filtration rate (GFR) non- Americanon 76-00-1514FEW/1.73 sq M.predicted among non-blacks MDRD (S/P/Bld) [Vol rate/Area]21 mL/min/{1.73_m2}Low>=60 mL/min/1.73m 2FMcKitrick HospitalHematocrit Auto (Bld) [Volume fraction]on 10-13-2024 Hematocrit (Bld) [Volume fraction]35.1 %Low36.0-48.0C[facility] ClinicHemoglobin [Mass/volume] in Bloodon 73-35-8731Eqinrtnmqc (Bld) [Mass/Vol] 11.3 g/dLLow12.0-16.0C[facility] ClinicLaboratory - Chemistry and Chemistry - challengeon 08-32-6858Bbdoanp [Mass/Vol]9.6 mg/dL8.5-10.1FMcKitrick HospitalChloride [Moles/Vol]100 mmol/Q01-929SincogqehCleveland ClinicCO2 [Moles/Vol]34.1 mmol/LHigh21.0-32.0C[facility] ClinicCreatinine [Mass/Vol]2.31 mg/dLHigh0.55-1.02C[facility] ClinicGFR/1.73 sq M.predicted MDRD (S/P/Bld) [Vol rate/Area]25 mL/min/{1.73_m2} Low>=60 mL/min/1.73m 2FMcKitrick HospitalGlucose [Mass/Vol]92 mg/eK10-888IkulfclcpCleveland ClinicPotassium [Moles/Vol]4.9 mmol/L 3.5-5.1FMount St. Mary Hospitalodium [Moles/Vol]138 mmol/N064-527 Cleveland ClinicUrea nitrogen [Mass/Vol]62.0 mg/dLHigh7.0-18.0 Cleveland ClinicUrea nitrogen/Creatinine [Mass ratio]26.8 mg/mg [facility] ClinicLaboratory - Hematology and Cell countson 75-34-9826Ppcdyuuk granulocytes/100 WBC (Bld)0.4 %0.0-0.5FMcKitrick HospitalLeukocytes [#/volume] corrected for nucleated erythrocytes in Blood by Automated counon 87-50-4519QIR corrected for nucl RBC Auto (Bld) [#/Vol]8.0 10 3/uL4.0-11.0Cleveland ClinicLymphocytes Auto (Bld) [#/Vol]on 99-85-1734Vphpkegndut (Bld) [#/Vol]1.2 10 3/uL1.2-3.8Cleveland ClinicLymphocytes/100 WBC Auto (Bld)on 10-13-2024 Lymphocytes/100 WBC (Bld)15.0 %Low20.5-60.0Cleveland ClinicMCH Auto (RBC) [Entitic mass]on 04-15-1790IMQ (RBC) [Entitic mass]27.3 pg26.7-34.0 Cleveland ClinicMCHC Auto (RBC) [Mass/Vol]on 45-41-3063SGHT (RBC) [Mass/Vol]32.2 g/dL29.9-35.2FMcKitrick HospitalMCV Auto (RBC) [Entitic vol]on 96-88-7326NZB (RBC) [Entitic vol]84.8 fL81.0-99.0C[facility] ClinicMonocytes Auto (Bld) [#/Vol]on 57-32-2221Cezmqsczp (Bld) [#/Vol]1.1 10 3/uLHigh0.3-0.8C[facility] ClinicMonocytes/100 WBC Auto (Bld)on 63-74-5283Idzxaiaat/100 WBC (Bld)13.5 %High1.7-12.0Cleveland ClinicNeutrophils Auto (Bld) [#/Vol]on 14-32-7180Kkvuluxueto (Bld) [#/Vol]5.3 10 3/uL1.4-6.5FMcKitrick HospitalNeutrophils/100 WBC Auto (Bld)on 32-29-4558Cvafzudevys/100 WBC (Bld)66.8 %43.0-75.0C[facility] ClinicNo Panel Informationon 19-70-8920Ncofahzipuv # (Auto)0.3 10 3/uL0.0-0.7FMcKitrick HospitalImmature Granulocyte # (Auto)0.03 10 3/uL0.00-0.03Cleveland ClinicPlatelet mean volume Auto (Bld) [Entitic vol]on 38-13-9513Azdkkfdl mean volume (Bld) [Entitic vol]9.6 fL 9.5-13.5FMcKitrick HospitalPlatelets Auto (Bld) [#/Vol]on 09-65-2420Aemyuaoce (Bld) [#/Vol]305 10 3/rQ283-783TvtzeshjhCleveland ClinicRBC Auto (Bld) [#/Vol]on 09-18-5004UVS (Bld) [#/Vol]4.14 10 6/uLLow 4.20-5.40Mercy Healtherum or plasma anion gap determinationon 76-43-3341Dvlfa gap [Moles/Vol]8.8 mmol/LFMcKitrick HospitalXR Foot - left 3 Viewson 35-85-2690Tnoywtu Result: 3 views left foot: Weight-bearing: DP, oblique, lateral: 09/28/2024: Unremarkable for acute osseous or joint pathology. Unremarkable for fracture or stress fracture changes. 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 Arthritic changes of the navicular-cuneiform joint as well. 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.[facility] HealthcareRadiology Study observation (narrative)[facility] HealthcareBasophils Auto (Bld) [#/Vol]on 69-00-9135Uqwrvizzv (Bld) [#/Vol]Automated basophil count 0.0-0.1FMcKitrick HospitalBasophils (Bld) [#/Vol]0.1 10 3/uL 0.0-0.1FMcKitrick HospitalBasophils/100 WBC Auto (Bld)on 98-31-6422Lmtqoulvf/100 WBC (Bld)Automated basophil %0.2-2.0C[facility] ClinicBasophils/100 WBC (Bld)1.0 %0.2-2.0C[facility] ClinicEosinophils/100 WBC Auto (Bld)on 38-97-2444Hwzqbiurtlr/100 WBC (Bld) Automated eosinophil %0.9-7.0C[facility] ClinicEosinophils/100 WBC (Bld)4.6 %0.9-7.0C[facility] ClinicErythrocyte distribution width Auto (RBC) [Ratio]on 79-70-5482Yxbpeqhpobr distribution width (RBC) [Ratio]Erythrocyte distribution width [Ratio] by Automated fdjusQufs17.0-15.0 [facility] ClinicErythrocyte distribution width (RBC) [Ratio] 15.6 %High11.0-15.0[facility] ClinicEstimated glomerular filtration rate (GFR) non- Americanon 74-30-4647TAF/1.73 sq M.predicted among non-blacks MDRD (S/P/Bld) [Vol rate/Area]Estimated glomerular filtration rate (GFR) non- AmericanLow>=60 mL/min/1.73m 2FMcKitrick HospitalGFR/1.73 sq M.predicted among non-blacks MDRD (S/P/Bld) [Vol rate/Area]32 mL/min/{1.73_m2}Low>=60 mL/min/1.[address]m [address] [place], [place] [address]Globulin Calc (S) [Mass/Vol]on 53-70-2676Teeocuan (S) [Mass/Vol]Serum globulin measurement by calculation (mass/volume)[facility] Globulin (S) [Mass/Vol]3.5 g/dLCleveland ClinicHematocrit Auto (Bld) [Volume fraction]on 17-95-5008Sgnbhyfgmu (Bld) [Volume fraction]Hematocrit [Volume Fraction] of Blood by Automated nzvgsWue95.0-48.0[facility] ClinicHematocrit (Bld) [Volume fraction]33.6 %Low36.0-48.0[facility] ClinicHemoglobin [Mass/volume] in Bloodon 38-67-0134Zuktqoneqx (Bld) [Mass/Vol]Hemoglobin [Mass/volume] in GhbgpJgn38.0-16.0[facility] ClinicHemoglobin (Bld) [Mass/Vol]11.0 g/dLLow12.0-16.0[facility] ClinicLaboratory - Chemistry and Chemistry - challengeon 09-05-2024 Albumin [Mass/Vol]3.7 g/dL3.4-5.0[facility] ClinicALP [Catalytic activity/Vol]82 U/F89-958FkqetazqlCleveland ClinicALT [Catalytic activity/Vol]20 U/Y44-66EeoxvualxCleveland ClinicAST [Catalytic activity/Vol]21 U/K75-11QlzouvrwzCleveland ClinicBilirubin [Mass/Vol]0.4 mg/dL0.2-1.0C[facility] ClinicCalcium [Mass/Vol]9.5 mg/dL 8.5-10.1FMcKitrick HospitalChloride [Moles/Vol]101 mmol/L98-107 [facility] ClinicCO2 [Moles/Vol]29.0 mmol/L21.0-32.0C[facility] ClinicCobalamin (Vitamin B12) [Mass/Vol]491 pg/dL640-8204 [facility] ClinicComment on above:Performed at: - [facility] [address] [id number] Director: Jerad Medina PhD, Phone: [phone] [Mass/Vol]1.58 mg/dLHigh0.55-1.02[facility] ClinicFerritin [Mass/Vol]45.0 ng/mL8.0-252.0[facility] ClinicGFR/1.73 sq M.predicted MDRD (S/P/Bld) [Vol rate/Area]39 mL/min/{1.73_m2} Low>=60 mL/min/1.73m 2FMcKitrick HospitalGlucose [Mass/Vol]89 mg/oO62-126IbwmcwusdCleveland ClinicPotassium [Moles/Vol]4.5 mmol/L 3.5-5.1FMcKitrick HospitalProtein [Mass/Vol]7.2 g/dL6.4-8.2 [facility]odium [Moles/Vol]139 mmol/D340-087PdninknpaCleveland ClinicTSH Qn3.165 m[IU]/L0.358-3.740[facility] ClinicUrea nitrogen [Mass/Vol]44.0 mg/dLHigh7.0-18.0[facility] ClinicUrea nitrogen/Creatinine [Mass ratio]27.8 mg/mgCleveland ClinicLaboratory - Hematology and Cell countson [id number] granulocytes/100 WBC (Bld)0.2 %0.0-0.5FMcKitrick Hospital Leukocytes [#/volume] corrected for nucleated erythrocytes in Blood by Automated counon 43-05-6087GTY corrected for nucl RBC Auto (Bld) [#/Vol]Leukocytes [#/volume] corrected for nucleated erythrocytes in Blood by Automated coun 4.0-11.0[facility] ClinicWBC corrected for nucl RBC Auto (Bld) [#/Vol]6.1 10 3/uL4.0-11.0[facility] ClinicLymphocytes Auto (Bld) [#/Vol]on 72-15-4377Vgkqeeqsbmy (Bld) [#/Vol]Lymphocytes [#/volume] in Blood by Automated count1.2-3.8Cleveland ClinicLymphocytes (Bld) [#/Vol]1.5 10 3/uL1.2-3.8Cleveland ClinicLymphocytes/100 WBC Auto (Bld)on 48-72-4594Gqamdbtehit/100 WBC (Bld)Lymphocytes/100 leukocytes in Blood by Automated count20.5-60.0[facility] Lymphocytes/100 WBC (Bld)24.5 %20.5-60.0[facility] CenterH Auto (RBC) [Entitic mass]on 93-83-5752AWX (RBC) [Entitic mass]MCH [Entitic mass] by Automated count26.7-34.0[facility] (RBC) [Entitic mass]27.2 pg26.7-34.0C[facility] ClinicMCHC Auto (RBC) [Mass/Vol] on 12-14-9699MYVO (RBC) [Mass/Vol]MCHC [Mass/volume] by Automated count29.9-35.2 [facility] CenterHC (RBC) [Mass/Vol]32.7 g/dL29.9-35.2 [facility] ClinicMCV Auto (RBC) [Entitic vol]on 18-24-3555BDR (RBC) [Entitic vol]MCV [Entitic volume] by Automated count81.0-99.0[facility] CenterV (RBC) [Entitic vol]83.2 fL81.0-99.0C[facility] ClinicMonocytes Auto (Bld) [#/Vol]on 80-08-4769Nrzqgnjjf (Bld) [#/Vol] Automated blood monocyte count0.3-0.8C[facility] ClinicMonocytes (Bld) [#/Vol]0.7 10 3/uL0.3-0.8[facility] ClinicMonocytes/100 WBC Auto (Bld)on 88-60-6187Ozllxkpog/100 WBC (Bld)Automated monocyte %1.7-12.0 [facility] ClinicMonocytes/100 WBC (Bld)11.7 %1.7-12.0C[facility] ClinicNeutrophils Auto (Bld) [#/Vol]on 74-94-7628Udnyobijdwy (Bld) [#/Vol]Neutrophils [#/volume] in Blood by Automated count1.4-6.5FMcKitrick HospitalNeutrophils (Bld) [#/Vol]3.5 10 3/uL1.4-6.5FMcKitrick HospitalNeutrophils/100 WBC Auto (Bld)on 09-05-2024 Neutrophils/100 WBC (Bld)Automated neutrophil %43.0-75.0C[facility] ClinicNeutrophils/100 WBC (Bld)58.0 %43.0-75.0Cleveland ClinicNo Panel Informationon 97-75-3923Jpnxdmsvasz # (Auto)0.3 10 3/uL0.0-0.7 [facility] ClinicFolate16.50 ng/mL8.60-58.90Cleveland ClinicImmature Granulocyte # (Auto)0.01 10 3/uL0.00-0.03Cleveland ClinicPlatelet mean volume Auto (Bld) [Entitic vol]on 71-91-1335Fsxccjiw mean volume (Bld) [Entitic vol]Platelet mean volume [Entitic volume] in Blood by Automated count9.5-13.5FMcKitrick Hospital Platelet mean volume (Bld) [Entitic vol]10.2 fL9.5-13.5FMcKitrick HospitalPlatelets Auto (Bld) [#/Vol]on 88-26-2465Apvdswhwy (Bld) [#/Vol] Platelets [#/volume] in Blood by Automated szhxa282-169RnzvcdjpfCleveland ClinicPlatelets (Bld) [#/Vol]333 10 3/aP841-868ZguuajpjhCleveland ClinicRBC Auto (Bld) [#/Vol]on 08-37-5304OPI (Bld) [#/Vol]Erythrocytes [#/volume] in Blood by Automated countLow4.20-5.40Cleveland ClinicRBC (Bld) [#/Vol]4.04 10 6/uLLow4.20-5.40[facility] Serum or plasma albumin/globulin mass ratioon 32-57-8599Dplqejn/Globulin [Mass ratio]Serum or plasma albumin/globulin mass ratioCleveland ClinicAlbumin/Globulin [Mass ratio]1.1 {ratio}[facility] Serum or plasma anion gap determinationon 54-73-9451Tecys gap [Moles/Vol]Serum or plasma anion gap determinationCleveland ClinicAnion gap [Moles/Vol]13.5 mmol/LFMcKitrick HospitalCB W Auto Differential panel (Bld)on 22-38-2475Fuoogkmxq (Bld) [#/Vol]0.06 10*3/uLNINFSelect Medical Specialty [facility]on Basophils/100 WBC (Bld)0.8 %[facility] CantonDifferential cell count method Nom (Bld)AutoCleveland ClinicEosinophils (Bld) [#/Vol]0.4 10*3/uLNINFSelect Medical Specialty Hospital - CantonEosinophils/100 WBC (Bld)5.2 %[facility] - CantonErythrocyte distribution width (RBC) [Ratio]15.7 %High11.5 - 15.0 %[facility] CantonHematocrit (Bld) [Volume fraction]34.2 %Low36.0 - 46.0 %[facility] CantonHemoglobin (Bld) [Mass/Vol]11.1 g/dLLow11.5 - 15.5 g/dLSelect Medical Specialty Hospital - CantonImmature granulocytes (Bld) [#/Vol]0.03 10*3/uLNISumma Health Akron CampusImmature granulocytes/100 WBC (Bld) 0.4 %[facility] CantonInterpretation and review of laboratory resultsAbnormal [facility] Hospital - CantonLymphocytes (Bld) [#/Vol]1.57 10*3/uLSelect Medical Specialty Hospital [facility] Lymphocytes/100 WBC (Bld)20.4 %[facility] BeachwoodH (RBC) [Entitic mass]27.3 pg 26.0 - 34.0 pgCThe MetroHealth SystemMCHC (RBC) [Mass/Vol]32.5 g/dL30.5 - 36.0 g/dL [facility], BeachwoodV (RBC) [Entitic vol]84 fL80.0 - 100.0 fLCThe MetroHealth System Monocytes (Bld) [#/Vol]0.75 10*3/uLNINFSelect Medical Specialty Hospital - CantonMonocytes/100 WBC (Bld) 9.7 %[facility] CantonNeutrophils (Bld) [#/Vol]4.9 10*3/uLSelect Medical Specialty Hospital - [facility]on Neutrophils/100 WBC (Bld)63.5 %[facility] CantonNucleated RBC (Bld) [#/Vol]NINF [facility] CantonNucleated RBC/100 WBC (Bld) [Ratio]0 %/100 WBCSelect Medical Specialty Hospital - Canton Platelet mean volume (Bld) [Entitic vol]9.7 fL9.0 - 12.7 fLCThe MetroHealth System Platelets (Bld) [#/Vol]328 10*3/[facility] HospitalRBC (Bld) [#/Vol]4.07 10*6/uL 3.90 - 5.20 m/[facility] HospitalWBC (Bld) [#/Vol]7.71 10*3/[facility] ClinicBasophils (Bld) [#/Vol]0.06 10*3/uLNormal<0.11CMercy Health [facility] on above:Order Comment: Specimen Type: BLOOD SPECIMEN Ordering Facility: [facility] Address: [address] [place], [place] [address]Performed By: #### 48062-9 #### [facility] CLIA [id number] [address] [place] [address] 04171Oqfhonerg/100 WBC (Bld)0.8 %NormalMarion Hospital Comment on above:Order Comment: Specimen Type: BLOOD SPECIMEN Ordering Facility: [facility] Address: [address] [place], [place] [address]Performed By: #### 05776-7 #### [facility] CLIA [id number] [address] [place] [address] 17360Qhyvyhkralmn cell count method Nom (Bld)AutoNormalCMercy Health St. [facility] on above:Order Comment: Specimen Type: BLOOD SPECIMEN Ordering Facility: [facility] Address: [address] [place], [place] [address]Performed By: #### 27721-8 #### [facility] CLIA [id number] [address] [place] [address] 14923Ysjghhggavj (Bld) [#/Vol]0.40 10*3/uLNormal<0.46[facility] on above:Order Comment: Specimen Type: BLOOD SPECIMEN Ordering Facility: [facility] Address: [address] [place], [place] [address]Performed By: #### 78391-2 #### [facility] CLIA [id number] [address] [place] [address] 76056Tnxpbrpzwjx/100 WBC (Bld)5.2 %NormalMarion Hospital Comment on above:Order Comment: Specimen Type: BLOOD SPECIMEN Ordering Facility: [facility] Address: [address] [place], [place] [address]Performed By: #### 14743-9 #### [facility] CLIA [id number] [address] [place] [address] 35089Nixthnuskav distribution width (RBC) [Ratio]15.7 %High 11.5-15.0[facility] on above:Order Comment: Specimen Type: BLOOD SPECIMEN Ordering Facility: [facility] Address: [address] [place], [place] [address]Performed By: #### 54947-2 #### [facility] CLIA [id number] [address] [place] [address] 34107Hrrawhfniu (Bld) [Volume fraction]34.2 %Low36.0-46.0Marion HospitalComment on above:Order Comment: Specimen Type: BLOOD SPECIMEN Ordering Facility: [facility] Address: [address] [place], [place] [address]Performed By: #### 14960-0 #### [facility] CLIA [id number] [address] [place] [address] 68687Nfodvauuvk (Bld) [Mass/Vol]11.1 g/dLLow11.5-15.5CMercy Health St. [facility] on above:Order Comment: Specimen Type: BLOOD SPECIMEN Ordering Facility: [facility] Address: [address] [place], [place] [address]Performed By: #### 93038-8 #### [facility] CLIA [id number] [address] [place] [address] 90064Vyqdvucn granulocytes (Bld) [#/Vol]0.03 10*3/uLNormal<0.10 [facility] on above:Order Comment: Specimen Type: BLOOD SPECIMEN Ordering Facility: [facility] Address: [address] [place], [place] [address]Performed By: #### 36498-8 #### [facility] CLIA [id number] [address] [place] [address] 18457Brrethfx granulocytes/100 WBC (Bld)0.4 %NormalGerman Hospital on above:Order Comment: Specimen Type: BLOOD SPECIMEN Ordering Facility: [facility] Address: [address] [place], [place] [address]Performed By: #### 87115-5 #### [facility] CLIA [id number] [address] [place] [address] 29083Aacewwylqbr (Bld) [#/Vol]1.57 10*3/uLNormal1.00-4.00[facility] on above:Order Comment: Specimen Type: BLOOD SPECIMEN Ordering Facility: [facility] Address: [address] [place], [place] [address]Performed By: #### 82693-6 #### [facility] CLIA [id number] [address] [place] [address] 09043Vmmjnimbccx/100 WBC (Bld)20.4 %NormalGerman Hospital on above:Order Comment: Specimen Type: BLOOD SPECIMEN Ordering Facility: [facility] Address: [address] [place], [place] [address]Performed By: #### 97478-4 #### [facility] CLIA [id number] [address] [place] [address] 46020LWI (RBC) [Entitic mass]27.3 guBrumdg11.0-34.0[facility] on above:Order Comment: Specimen Type: BLOOD SPECIMEN Ordering Facility: [facility] Address: [address] [place], [place] [address]Performed By: #### 85311-0 #### [facility] CLIA [id number] [address] [place], [place] [address]GELU (RBC) [Mass/Vol]32.5 g/zRTgjnwr85.5-36.0[facility] on above:Order Comment: Specimen Type: BLOOD SPECIMEN Ordering Facility: [facility] Address: [address] [place], [place] [address]Performed By: #### 00678-6 #### [facility] CLIA [id number] [address] [place] [address] 19599ICT (RBC) [Entitic vol]84.0 nRWicbqw37.0-100.0[facility] on above:Order Comment: Specimen Type: BLOOD SPECIMEN Ordering Facility: [facility] Address: [address] [place], [place] [address]Performed By: #### 96126-7 #### [facility] CLIA [id number] [address] [place] [address] 78462Pojyfbrbn (Bld) [#/Vol]0.75 10*3/uLNormal<0.87[facility] on above:Order Comment: Specimen Type: BLOOD SPECIMEN Ordering Facility: [facility] Address: [address] [place], [place] [address]Performed By: #### 18540-8 #### [facility] CLIA [id number] [address] [place] [address] 16529Bhzpuaeux/100 WBC (Bld)9.7 %NormalCleHenry County Hospital Comment on above:Order Comment: Specimen Type: BLOOD SPECIMEN Ordering Facility: [facility] Address: [address] [place], [place] [address]Performed By: #### 65828-7 #### [facility] CLIA [id number] [address] [place] [address] 18589Qskkagjvyuu (Bld) [#/Vol]4.90 10*3/uLNormal1.45-7.50[facility] on above:Order Comment: Specimen Type: BLOOD SPECIMEN Ordering Facility: [facility] Address: [address] [place], [place] [address]Performed By: #### 10629-8 #### [facility] CLIA [id number] [address] [place], [place] [address]Nzzjqgwhuot/100 WBC (Bld)63.5 %NormalGerman Hospital on above:Order Comment: Specimen Type: BLOOD SPECIMEN Ordering Facility: [facility] Address: [address] [place], [place] [address]Performed By: #### 92564-3 #### [facility] CLIA [id number] [address] [place], [place] [address]Owdtpquoz RBC (Bld) [#/Vol]10*3/uLNormal<0.01[facility] on above:Order Comment: Specimen Type: BLOOD SPECIMEN Ordering Facility: [facility] Address: [address] [place], [place] [address]Performed By: #### 73150-2 #### [facility] CLIA [id number] [address] [place], [place] [address]Yklxyzowa RBC/100 WBC (Bld) [Ratio]0.0 /[address] [facility] on above:Order Comment: Specimen Type: BLOOD SPECIMEN Ordering Facility: [facility] Address: [facility] [place], [place] [address]Performed By: #### 46461-3 #### [facility] CLIA [id number] [address] [place], [place] [address]Rrgqwhzv mean volume (Bld) [Entitic vol]9.7 fLNormal9.0-12.7 [facility] on above:Order Comment: Specimen Type: BLOOD SPECIMEN Ordering Facility: [facility] Address: [address] [place], [place] [address]Performed By: #### 23032-6 #### [facility] CLIA [id number] [address] [place] [address] 38234Xlcbqrici (Bld) [#/Vol]328 10*3/qVHvwzns587-136XzecnlytqGerman Hospital on above:Order Comment: Specimen Type: BLOOD SPECIMEN Ordering Facility: [facility] Address: [address] [place], [place] [address]Performed By: #### 62200-3 #### [facility] CLIA [id number] [address] [place] [address] 33055GBI (Bld) [#/Vol]4.07 10*6/uLNormal3.90-5.20[facility] on above:Order Comment: Specimen Type: BLOOD SPECIMEN Ordering Facility: [facility] Address: [address] [place], [place] [address]Performed By: #### 42193-7 #### [facility] CLIA [id number] [address] [place] [address] 44153VSB (Bld) [#/Vol]7.71 10*3/uLNormal3.70-11.00[facility] on above:Order Comment: Specimen Type: BLOOD SPECIMEN Ordering Facility: [facility] Address: [address] [place], [place] [address]Performed By: #### 96546-5 #### [facility] CLIA [id number] [address] [place] [address] 57419FOGVAGvq 35-48-0071XFJVXWPyaxm (SP) Office ([place]) RENUKA OWEN ([id number]) 1950 F Date Time Provider Department 08/21/24 [...] PAST SURGICAL HISTORY Procedure Laterality Date ARTHRP BHARATH CONDYLEANDPLATU MEDIALANDLAT COMPARTMENTS 05/03/2006 bilateral BACK SURGERY [...] without masses or skin (more content not included)...NormalMarion HospitalComprehensive metabolic 2000 panelOrdered By: Marianela Chavarria on 19-70-5143Cwuaxxh [Mass/Vol]4.1 g/dL3.9 - 4.9 g/dLHillsboro ClinicALP [Catalytic activity/Vol]84 U/L34 - 123 U/LCleveland ClinicALT [Catalytic activity/Vol]11 U/L7 - 38 U/LCleveland ClinicAnion gap [Moles/Vol]12 mmol/L8 - 15 mmol/L [facility] CantonAST [Catalytic activity/Vol]20 U/L13 - 35 U/LCThe MetroHealth System Bilirubin [Mass/Vol]0.4 mg/dL0.2 - 1.3 mg/dLHillsboro ClinicCalcium [Mass/Vol] 10.1 mg/dL8.5 - 10.2 mg/dLSelect Medical Specialty Hospital - CantonChloride [Moles/Vol]104 mmol/L98 - 107 mmol/LCuc medical centerand ClinicCO2 [Moles/Vol]25 mmol/L22 - 30 mmol/LCleveland Clinic Creatinine [Mass/Vol]1.33 mg/dLHigh0.58 - 0.96 mg/dLSelect Medical Specialty Hospital - CantonGFR/1.73 sq M.predicted among non-blacks MDRD (S/P/Bld) [Vol [...] eGFRmay not accurately reflect actual GFR.Glucose [Mass/Vol]104 mg/wKRrvp11 - 99 mg/dLSelect Medical Specialty Hospital [facility]on Comment on above:The [place] Diabetes Association (ADA) provides guidance for cutoff [...] Standards of Medical Care in Diabetes 2016, [place] Diabetes Association. Diabetes Care. 2016.39(Suppl 1). Interpretation and review of laboratory resultsAbnormalCleveland ClinicPotassium [Moles/Vol]4.8 mmol/L3.7 - 5.1 mmol/LClevelcritical access hospital ClinicProtein [Mass/Vol]6.9 g/dL 6.3 - 8.0 g/dLSalem City Hospitalodium [Moles/Vol]141 mmol/L136 - 144 mmol/L [facility] CantonUrea nitrogen [Mass/Vol]61 mg/dLHigh7 - 21 mg/dLHolzer HospitalComprehensive metabolic 2000 panelon 27-61-1545Pujjpop [Mass/Vol]4.1 g/dLNormal3.9-4.9CMercy Health St. [facility] on above:Order Comment: Specimen Type: BLOOD SPECIMEN Ordering Facility: [facility] Address: [address] [place], [place] [address]Performed By: #### 85542-5 #### [facility] CLIA [id number] [address] [place] [address] 49054UDH [Catalytic activity/Vol]84 U/XTfmiig81-465CyipnsmbyGerman Hospital on above:Order Comment: Specimen Type: BLOOD SPECIMEN Ordering Facility: [facility] Address: [address] [place], [place] [address]Performed By: #### 79541-9 #### [facility] CLIA [id number] [address] [place] [address] 05876PNP [Catalytic activity/Vol]11 U/LNormal7-38[facility] on above:Order Comment: Specimen Type: BLOOD SPECIMEN Ordering Facility: [facility] Address: [address] [place], [place] [address]Performed By: #### 78578-0 #### [facility] CLIA [id number] [address] [place], [place] [address]Bpcnz gap [Moles/Vol]12 mmol/LNormal8-15[facility] on above:Order Comment: Specimen Type: BLOOD SPECIMEN Ordering Facility: [facility] Address: [address] [place], [place] [address]Performed By: #### 92481-3 #### [facility] CLIA [id number] [address] [place], [place] [address]EOR [Catalytic activity/Vol]20 U/LZpebzn74-82JdezzyygzGerman Hospital on above:Order Comment: Specimen Type: BLOOD SPECIMEN Ordering Facility: [facility] Address: [address] [place], [place] [address]Performed By: #### 53271-4 #### [facility] CLIA [id number] [address] [place], [place] [address]Kfahopuab [Mass/Vol]0.4 mg/dLNormal0.2-1.3CMercy Health St. [facility] on above:Order Comment: Specimen Type: BLOOD SPECIMEN Ordering Facility: [facility] Address: [address] [place], [place] [address]Performed By: #### 25145-9 #### [facility] CLIA [id number] [address] [place], [place] [address]Rgcziio [Mass/Vol]10.1 mg/dLNormal8.5-10.2CMercy Health St. [facility] on above:Order Comment: Specimen Type: BLOOD SPECIMEN [facility] Address: [address] [place], [place] [address]Performed By: #### 88376-6 #### [facility] CLIA [id number] [address] [place], [place] [address]Jqtcdnxp [Moles/Vol]104 mmol/CWqiauy69-703CdbtxiaoaGerman Hospital on above:Order Comment: Specimen Type: BLOOD SPECIMEN Ordering Facility[facility] Address: [address] [place], [place] [address]Performed By: #### 59970-3 #### [facility] CLIA [id number] [address] [place], [place] [address]LW0 [Moles/Vol]25 mmol/JEzvpcr21-06SiyhderrgMarion Hospital Comment on above:Order Comment: Specimen Type: BLOOD SPECIMEN Ordering Facility: [facility] Address: [address] [place], [place] [address]Performed By: #### 91803-8 #### [facility] CLIA [id number] [address] [place] [address] 77482Xcjitgbqgy [Mass/Vol]1.33 mg/dLHigh0.58-0.96Marion HospitalComment on above:Order Comment: Specimen Type: BLOOD SPECIMEN Ordering Facility: [facility] Address: [address] [place], [place] [address]Performed By: #### 69535-5 #### [facility] CLIA [id number] [address] [place] [address] 14462Xgholpbhqs and Glomerular filtration rate.predicted panel (S/P/Bld)42 mL/min/1.73m???Low>=60Marion HospitalComment on above: Order Comment: Specimen Type: BLOOD SPECIMEN Ordering Facility: [facility] Address: [address] [place], [place] [address]Result Comment: Estimated Glomerular Filtration Rate (eGFR) is [...] not accurately reflect actual GFR.Performed By: #### 64137-4 #### [facility] CLIA [id number] [address] [place] [address] 778[address]Aeedklk [Mass/Vol]104 mg/uJVzqw59-24SijwsocjgMarion Hospital Comment on above:Order Comment: Specimen Type: BLOOD SPECIMEN Ordering Facility: [facility] Address: [address] [place], [place] [address]Rlzpzw Comment: The [place] Diabetes Association (ADA) provides guidance for cutoff [...] Standards of Medical Care in Diabetes 2016, [place] Diabetes Association. Diabetes Care. 2016.39(Suppl 1).Performed By: #### 20008-0 #### [facility] CLIA [id number] [address] [place] [address] 27515Ztfpxrtni [Moles/Vol]4.8 mmol/LNormal3.7-5.1CMercy Health St. [facility] on above:Order Comment: Specimen Type: BLOOD SPECIMEN Ordering Facility: [facility] Address: [address] [place] [address]Performed By: #### 25797-0 #### [facility] CLIA [id number] [address] [place] [address] 301[address]Riiqbus [Mass/Vol]6.9 g/dLNormal6.3-8.0[facility] on above:Order Comment: Specimen Type: BLOOD SPECIMEN Ordering Facility: [facility] Address: [address] [place], [place] [address]Gesggjnwn By: #### 83696-8 #### [facility] CLIA [id number] [address] [place] [address] 30392Bfzxxv [Moles/Vol]141 mmol/IUrcxbx519-285GfqdummdcGerman Hospital on above:Order Comment: Specimen Type: BLOOD SPECIMEN Ordering Facility[facility] Address: [address] [place] [address]Performed By: #### 32595-5 #### [facility] CLIA [id number] [address] [place], [place] [address]Qbpk nitrogen [Mass/Vol]61 mg/dLHigh7-21[facility] on above:Order Comment: Specimen Type: BLOOD SPECIMEN Ordering Facility: [facility] Address: [address] [place], [place] [address]Performed By: #### 31073-7 #### [facility] CLIA [id number] [address] [place], [place] [address]O-ewn reportOrdered By: Saman Vo on 71-94-7248Pxvgs reportMERCY HEALTH [facility] [address] [place] [address] XRay Report Signed Patient: Renuka Owen MR#: [id number] : 1950 Acct:[id number] Age/Sex: 73 / F ADM Date: 5 Loc: [facility] Room: Type: [facility] Attending Dr: Emory Cole II, MD Copies to: Emory Cole MD~ Ordering Provider: Emory Cole MD Date of Service: 06/29/24 XR/XR knee LT 3V - NOT FOR ER USE: Z96.652 - Presenceof left artificial knee joint ([id number]) XR/XR pelvis 1-2V: Z96.652 - Presence of [...] Vo Jr., D.ORadha06/29/2024 10:50 AM Dictation Location: [place] [address] Transcribed By: BJORN 06/29/24 1050 Dictated By: Saman Vo Jr, DO 06/29/24 1048 Signed By: 06/29/24 1050 [facility] ClinicXR knee LT 3V - NOT FOR ER USEon 57-45-0663RQ knee LT 3V - NOT FOR ER USENoMission Family Health Center Physician [facility]am [facility] HospitalBasic Metabolic Panelon 79-90-2984Rsujw gap [Moles/Vol]12.6 mmol/LNormal6.0-15.0[facility] Physician GroupComment on above:Performed By: #### BMP, MG ####[address] [address] USACalcium [Mass/Vol]8.7 mg/dLNormal8.6-10.3[facility] Physician [facility] HospitalComment on above:Performed By: #### BMP, MG ####[address] [address] USAChloride [Moles/Vol]107 mmol/BQrcylo76-652Ffu [facility] Physician [facility] Comment on above:Performed By: #### BMP, MG ####[address] [address] USACO2 [Moles/Vol]23.8 mmol/LNormal 21.0-31.0[facility] Physician [facility] HospitalComment on above:Performed By: #### BMP, MG ####[address] [address] [place] Creatinine [Mass/Vol]1.23 mg/dLHigh0.60-1.20The [facility] HospitalComment on above:Performed By: #### BMP, MG ####[address] [address] USACreatinine Clr Calc Mierqohp24.03NoMission [facility] Physician [facility] HospitalComment on above:Result Comment: PERFORMED BY:[address] [place], [place] [phone] MEDICAL DIRECTORLLOYD NICHOLSON M.D.Performed By: #### BMP, MG ####[address] [address] [place] Estimated GFR46.113 mL/MinNormalThe [facility] Physician GroupComment on above: Performed By: #### BMP, MG ####[place] [address] [place] [id number] USAGlucose [Mass/Vol]86 mg/iQSovndd57-152Ubp [facility] Physician GroupComment on above:Result Comment: Random Glucose Reference Range is dependent on time and content of last meal. Glucose of more than 200 mg/dL in a nonstressed, ambulatory subject supports the diagnosis of Diabetes Mellitus. ADA recommended reference rangePerformed By: #### BMP, MG ####[address] [place] [address] USAPotassium [Moles/Vol]3.4 mmol/LLow3.5-5.1The [facility] Physician GroupComment on above:Performed By: #### BMP, MG ####[address] [place] [address] USASodium [Moles/Vol]140 mmol/NQkwhsz581-528Ula [facility] Physician GroupComment on above:Performed By: #### BMP, MG ####[address] [place] [address] USAUrea nitrogen [Mass/Vol]29 mg/dLHigh7-25The [facility] Physician GroupComment on above:Performed By: #### BMP, MG ####[place] [address] [place] [id number] USACalcium [Mass/volume] in Serum or PlasmaOrdered By: Isaiah Mejia on 78-57-5145Dgpidsm [Mass/Vol]Calcium [Mass/volume] in Serum or Plasma8.6-10.3FMcKitrick HospitalCarbon dioxide, total [Moles/volume] in Serum or PlasmaOrdered By: Isaiah Mejia on 65-28-1640GN1 [Moles/Vol]Carbon dioxide, total [Moles/volume] in Serum or Uetxnc45.0-31.0Cleveland ClinicChloride [Moles/volume] in Serum or PlasmaOrdered By: Isaiah Mejia on 06-05-2024 Chloride [Moles/Vol]Chloride [Moles/volume] in Serum or Ssqazy68-131OtwhjowxeCleveland ClinicCreatinine [Mass/volume] in Serum or PlasmaOrdered By: Isaiah Mejia on 16-25-9531Hbnwydzoxa [Mass/Vol]Creatinine [Mass/volume] in Serum or PlasmaHigh0.60-1.20Cleveland ClinicGlucose [Mass/volume] in Serum or PlasmaOrdered By: Isaiah Mejia on 96-79-0707Afnqukz [Mass/Vol]Glucose [Mass/volume] in Serum or Gpfdwb70-798NcftksnulCleveland ClinicComment on above:ADA recommended reference rangeRandom Glucose Reference Range is dependent on time and content of last meal. Glucose of more than 200 mg/dL in a nonstressed, ambulatory subject supports the diagnosisof Diabetes Mellitus.Magnesiumon 16-36-2107Cacuwvqac [Mass/Vol]1.7 mg/dLLow1.9-2.7 [facility] Physician GroupComment on above:Result Comment: PERFORMED BY:[facility] [place], [place] [phone] MEDICAL DIRECTORLLOYD NICHOLSON M.D.Performed By: #### BMP, MG ####[facility] [place] [address] USAMagnesium [Mass/volume] in Serum or PlasmaOrdered By: Sherin Arellano on 77-49-2045Tqinjhiqs [Mass/Vol]Magnesium [Mass/volume] in Serum or PlasmaLow 1.9-2.7FMcKitrick HospitalNo Panel InformationOrdered By: Isaiah Mejia on 55-06-9481Gjmubwkkw GFR (CKD-EPI)46.113 mL/MinCleveland ClinicPharmacy Creatinine Clearance (Chem37.03Cleveland ClinicPotassium [Moles/volume] in Serum or PlasmaOrdered By: Isaiah Mejia on 68-86-0866Htmuelvvb [Moles/Vol]Potassium [Moles/volume] in Serum or PlasmaLow 3.5-5.1FMount St. Mary Hospitalerum or plasma anion gap determination Ordered By: Isaiah Mejia on 83-35-3599Zoxwt gap [Moles/Vol]Serum or plasma anion gap determination6.0-15.0Mercy Healthodium [Moles/volume] in Serum or PlasmaOrdered By: Isaiah Mejia on 60-34-6339Xgsubk [Moles/Vol]Sodium [Moles/volume] in Serum or Esthee122-788ZdduouzybCleveland ClinicUrea nitrogen [Mass/volume] in Serum or PlasmaOrdered By: Isaiah Mejia on 10-05-8631Rlgt nitrogen [Mass/Vol]Urea nitrogen [Mass/volume] in Serum or PlasmaHigh7-25Cleveland ClinicBasic Metabolic Panelon 73-39-2698Opeby gap [Moles/Vol]10.2 mmol/LNormal6.0-15.0The [facility] Physician GroupComment on above:Performed By: #### BMP ####[address] [address] USACalcium [Mass/Vol]9.0 mg/dLSignificant change down8.6-10.3The [facility] Physician GroupComment on above:Performed By: #### BMP ####[address] [address] USAChloride [Moles/Vol]110 mmol/ZZcsu07-840Xai [facility] Physician GroupComment on above:Performed By: #### BMP ####[address] [address] USACO2 [Moles/Vol]24.6 mmol/OYnrgpu08.0-31.0The [facility] Physician GroupComment on above:Performed By: #### BMP ####[address] [address] USACreatinine [Mass/Vol] 1.21 mg/dLHigh0.60-1.20[facility] Physician [facility] Memorial HospitalComment on above:Performed By: #### BMP ####[address] [address] USACreatinine Clr Calc Ynzkyjkv22.46NormalThCascade Medical Center Physician Group Comment on above:Result Comment: PERFORMED BY:[address] [place], [place] [phone] MEDICAL DEEPALI NICHOLSON M.D.Performed By: #### BMP ####[address] [address] USAEstimated GFR47.029 mL/Min NormalThe [facility] Hospital Physician GroupComment on above:Performed By: #### BMP ####[place] [address] USAGlucose [Mass/Vol]95 mg/iTMpnbvf78-002Zan [facility] Physician GroupComment on above: Result Comment: Random Glucose Reference Range is dependent on time and content of last meal. Glucose of more than 200 mg/dL in a nonstressed, ambulatory subject supports the diagnosis of Diabetes Mellitus. ADA recommended reference rangePerformed By: #### BMP ####[place] [address] USAPotassium [Moles/Vol]3.8 mmol/LNormal3.5-5.1The [facility] Physician GroupComment on above:Performed By: #### BMP ####[place] [address] USASodium [Moles/Vol]141 mmol/XBxznvl006-142Xxy [facility] Physician GroupComment on above:Performed By: #### BMP ####[place] [address] USAUrea nitrogen [Mass/Vol]31 mg/dLHigh7-25The [facility] Physician GroupComment on above:Performed By: #### BMP ####[place] [address] USABasic Metabolic Panelon 55-06-6488Dawii gap [Moles/Vol]10.7 mmol/LNormal6.0-15.0The [facility] Physician GroupComment on above:Performed By: #### BMP, MG ####[place] [address] USACalcium [Mass/Vol]7.4 mg/dLLow8.6-10.3The [facility] Physician GroupComment on above:Performed By: #### BMP, MG ####[place] [address] USAChloride [Moles/Vol] 115 mmol/XKgfy12-330Fbi [facility] Physician [facility] HospitalComment on above:Performed By: #### BMP, MG ####[place] [address] USACO2 [Moles/Vol]21.3 mmol/VXywhxn94.0-31.0[facility] Comment on above:Performed By: #### BMP, MG ####[place] [address] USACreatinine [Mass/Vol]1.03 mg/dL Significant change down0.60-1.20The [facility] Physician GroupComment on above: Performed By: #### BMP, MG ####[place] [address] USACreatinine Clr Calc Ddubhkmm88.07NormHCA Florida [facility] Physician [facility] Memorial HospitalComment on above:Result Comment: PERFORMED BY:[address] ABHISHEKGaloRadhaHUI, [place] [phone] MEDICAL DIRECTORLLOYD NICHOLSON M.D.Performed By: #### BMP, MG ####[place] [address] USAEstimated GFR57.057 mL/MinNormHCA Florida Citrus Hospital Physician [facility] Memorial HospitalComment on above:Performed By: #### BMP, MG ####[place] [address] USAGlucose [Mass/Vol]99 mg/tZWdhrqr19-053Kmj [facility] Physician [facility] HospitalComment on above:Result Comment: Random Glucose Reference Range is dependent on time and content of last meal. Glucose of more than 200 mg/dL in a nonstressed, ambulatory subject supports the diagnosis of Diabetes Mellitus. ADA recommended reference rangePerformed By: #### BMP, MG ####[place] [address] USAPotassium [Moles/Vol]3.0 mmol/LLow3.5-5.1The [facility] Physician GroupComment on above:Performed By: #### BMP, MG ####[place] [address] [place] [address] USASodium [Moles/Vol]144 mmol/PTccqfb678-005Qkz [facility] Physician GroupComment on above: Performed By: #### BMP, MG ####[place] [address] [place] [address] USAUrea nitrogen [Mass/Vol]42 mg/dLSignificant change up7-e [facility] Physician GroupComment on above:Performed By: #### BMP, MG ####[place] [address] [place] Basophils Auto (Bld) [#/Vol]Ordered By: Isaiah Mejia on 31-86-9484Wnbonovzy (Bld) [#/Vol]Automated basophil count0.0-0.2FMcKitrick Hospital Basophils/100 WBC Auto (Bld)Ordered By: Isaiah Mejia on 06-03-2024 Basophils/100 WBC (Bld)Automated basophil %.[facility] Complete Blood Count Auto Diffon 50-14-2581Tiqfayccc (Bld) [#/Vol]0.1 10*3/uL Normal0.0-0.2The [facility] Of The University Of PennsylvaniaComment on above:Result Comment: PERFORMED BY:[address] ABHISHEKGaloRadhaHUI, [place] [phone] MEDICAL DIRECTORLLOYD NICHOLSON M.D. Performed By: #### CBC ####[address] [address] USABasophils/100 WBC (Bld)1.0 %Normal.The [facility] Physician GroupComment on above:Performed By: #### CBC ####[address] [address] USAEosinophils (Bld) [#/Vol]0.3 10*3/uLNormal0.0-0.45The [facility] Physician [facility] HospitalComment on above:Performed By: #### CBC ####[place] [address] USAEosinophils/100 WBC (Bld)4.2 %Normal.The [facility] Physician GroupComment on above:Performed By: #### CBC ####[place] [address] USAErythrocyte distribution width (RBC) [Ratio]14.0 % Rcmroo49.9-15.3The [facility] Physician GroupComment on above:Performed By: #### CBC ####[address] Hematocrit (Bld) [Volume fraction]27.8 %Low34.0-46.4The [facility] Physician GroupComment on above:Performed By: #### CBC ####[place] [address] USAHemoglobin (Bld) [Mass/Vol]9.2 g/dLLow 11.8-15.4The [facility] Physician GroupComment on above:Performed By: #### CBC ####[place] [address] [place] Lymphocytes (Bld) [#/Vol]0.9 10*3/uLLow1.00-4.8[facility] Comment on above:Performed By: #### CBC ####[place] [address] USALymphocytes/100 WBC (Bld)12.0 %Normal.The [facility] Physician GroupComment on above:Performed By: #### CBC ####[address]H (RBC) [Entitic mass]28.9 deHzszqj14.7-34.3The [facility] Physician GroupComment on above: Performed By: #### CBC ####[address]MCV (RBC) [Entitic vol]87.1 bDJrhsmc23-887Vgs [facility] Physician GroupComment on above:Performed By: #### CBC ####[place] [address] USAMean Corpuscular HGB Conc33.2 g/fGFtjrxa44.0-35.0The [facility] Physician GroupComment on above: Performed By: #### CBC ####[place] [address] USAMonocytes (Bld) [#/Vol]0.7 10*3/uLNormal0.0-0.8The [facility] Physician GroupComment on above:Performed By: #### CBC ####[place] [address] USAMonocytes/100 WBC (Bld)9.8 %Normal.The [facility] Physician GroupComment on above:Performed By: #### CBC ####[place] [address] USANeutrophils (Bld) [#/Vol]5.5 10*3/uLNormal1.8-7.7The [facility] Physician GroupComment on above:Performed By: #### CBC ####[place] [address] USANeutrophils/100 WBC (Bld)73.0 %Normal. The [facility] Physician GroupComment on above:Performed By: #### CBC ####[place] [address] USANRBC% 0.1 /100{WBC}Normal0-0.5The [facility] Physician GroupComment on above:Performed By: #### CBC ####[place] [address] USAPlatelet mean volume (Bld) [Entitic vol]8.4 fLNormal6.3-10.7The [facility] Physician GroupComment on above:Performed By: #### CBC ####[place] [address] USAPlatelets (Bld) [#/Vol]226 10*3/eQDizbdb760-946Znk [facility] Physician GroupComment on above: Performed By: #### CBC ####[place] [address] USARBC (Bld) [#/Vol]3.19 10*6/uLLow3.60-5.00The [facility] Physician GroupComment on above:Performed By: #### CBC ####[facility] [address] [place] [address] USAWBC (Bld) [#/Vol]7.5 10*3/uLNormal3.8-11.6The [facility] Physician GroupComment on above:Performed By: #### CBC ####[facility] [place] [address] USAEosinophils Auto (Bld) [#/Vol]Ordered By: Isaiah Mejia on 06-03-2024 Eosinophils (Bld) [#/Vol]Automated eosinophil count0.0-0.45Cleveland ClinicEosinophils/100 WBC Auto (Bld)Ordered By: Isaiah Mejia on 68-02-2022Gceafmnmosq/100 WBC (Bld)Automated eosinophil %.Cleveland ClinicErythrocyte distribution width Auto (RBC) [Ratio]Ordered By: Isaiah Mejia on 26-95-0682Nfcjwblkztz distribution width (RBC) [Ratio] Erythrocyte distribution width [Ratio] by Automated count11.9-15.3FMcKitrick HospitalHematocrit Auto (Bld) [Volume fraction]Ordered By: Isaiah Mejia on 10-73-1376Bgqlslibia (Bld) [Volume fraction]Hematocrit [Volume Fraction] of Blood by Automated rzigvHpx43.0-46.4FMcKitrick HospitalHemoglobin [Mass/volume] in BloodOrdered By: Isaiah Mejia on 06-03-2024 Hemoglobin (Bld) [Mass/Vol]Hemoglobin [Mass/volume] in SgehaRlp99.8-15.4 [facility] ClinicLeukocytes [#/volume] corrected for nucleated erythrocytes in Blood by Automated counOrdered By: Isaiah Mejia on 06-03-2024 WBC corrected for nucl RBC Auto (Bld) [#/Vol]Leukocytes [#/volume] corrected for nucleated erythrocytes in Blood by Automated coun3.8-11.6FMcKitrick HospitalLymphocytes Auto (Bld) [#/Vol]Ordered By: Isaiah Mejia on 19-68-6538Wqowzhtihfw (Bld) [#/Vol]Lymphocytes [#/volume] in Blood by Automated countLow1.00-4.8Cleveland ClinicLymphocytes/100 WBC Auto (Bld) Ordered By: Isaiah Mejia on 24-10-5071Rqrpwrcchxi/100 WBC (Bld)Lymphocytes/100 leukocytes in Blood by Automated count.[facility] CenterH Auto (RBC) [Entitic mass]Ordered By: Isaiah Mejia on 80-52-6143VLW (RBC) [Entitic mass]MCH [Entitic mass] by Automated count24.7-34.3FMcKitrick HospitalMCHC Auto (RBC) [Mass/Vol]Ordered By: Isaiah Mejia on 06-03-2024 MCHC (RBC) [Mass/Vol]MCHC [Mass/volume] by Automated count32.0-35.0Cleveland ClinicMCV Auto (RBC) [Entitic vol]Ordered By: Isaiah Mejia on 80-59-6980XUO (RBC) [Entitic vol]MCV [Entitic volume] by Automated ogzvb27-203 Cleveland ClinicMagnesiumon 88-95-4251Ccxuxexvo [Mass/Vol]1.9 mg/dLSignificant change down1.9-2.7The [facility] Physician GroupComment on above:Result Comment: PERFORMED BY:[facility] [place] [address] [place], [place] [phone] MEDICAL DIRECTORLLOYD YANEZ M.D.Performed By: #### BMP, MG ####[address] [address] USAMonocytes Auto (Bld) [#/Vol]Ordered By: Isaiah Mejia on 22-78-0316Vrtlmtreh (Bld) [#/Vol]Automated blood monocyte count0.0-0.8Cleveland ClinicMonocytes/100 WBC Auto (Bld)Ordered By: Isaiah Mejia on 07-42-1109Vxvgdkvmw/100 WBC (Bld)Automated monocyte %. Cleveland ClinicNeutrophils Auto (Bld) [#/Vol]Ordered By: Isaiah Mejia on 24-89-8905Mjarbuzodyc (Bld) [#/Vol]Neutrophils [#/volume] in Blood by Automated count1.8-7.7FMcKitrick HospitalNeutrophils/100 WBC Auto (Bld)Ordered By: Isaiah Mejia on 09-19-7227Bqeyfhbmqyj/100 WBC (Bld) Automated neutrophil %.Cleveland ClinicNucleated erythrocytes [Presence] in Blood by Automated countOrdered By: Isaiah Mejia on 06-03-2024 Nucleated RBC Auto Ql (Bld)Nucleated erythrocytes [Presence] in Blood by Automated count0-0.5FMcKitrick HospitalPlatelet mean volume Auto (Bld) [Entitic vol]Ordered By: Isaiah Mejia on 66-35-0658Giebdtoo mean volume (Bld) [Entitic vol]Platelet mean volume [Entitic volume] in Blood by Automated count6.3-10.7FMcKitrick HospitalPlatelets Auto (Bld) [#/Vol] Ordered By: Isaiah Mejia on 00-83-4144Ghbxgnlvc (Bld) [#/Vol]Platelets [#/volume] in Blood by Automated domys721-955TfpabzkbmCleveland Clinic RBC Auto (Bld) [#/Vol]Ordered By: Isaiah Mejia on 78-56-6736REU (Bld) [#/Vol] Erythrocytes [#/volume] in Blood by Automated countLow3.60-5.00Cleveland ClinicUS renal BIon 55-24-1823RL renal BINormalThe [facility] Physician GroupWBC Auto (Bld) [#/Vol]Ordered By: Isaiah Mejia on 11-90-8221RJB (Bld) [#/Vol]Leukocytes [#/volume] in Blood by Automated count3.8-11.6FMcKitrick HospitalB-Type Natriuretic Peptideon 50-07-8567Itjgrjyvupp peptide B (Bld) [Mass/Vol]228.0 pg/mLHigh5-100The [facility] Comment on above:Result Comment: PERFORMED BY:[place] [address] [place], [place] [phone] MEDICAL DIRECTORLLOYD NICHOLSON M.D.Performed By: #### BNP, BMP, CBC ####[address] [address] USABasic Metabolic Panelon 61-44-7367Qswsz gap [Moles/Vol]11.3 mmol/LNormal6.0-15.0The [facility] Physician GroupComment on above:Performed By: #### BNP, BMP, CBC ####[address] [address] USACalcium [Mass/Vol]8.7 mg/dLSignificant change down8.6-10.3The [facility] Physician [facility] Comment on above:Performed By: #### BNP, BMP, CBC ####[place] [address] USAChloride [Moles/Vol]103 mmol/LNormal 98-107The [facility] Physician GroupComment on above:Performed By: #### BNP, BMP, CBC ####[place] [address] [place] CO2 [Moles/Vol]28.3 mmol/ATctjme33.0-31.0The [facility] Physician GroupComment on above:Performed By: #### BNP, BMP, CBC ####[place] [address] USACreatinine [Mass/Vol]2.48 mg/dLSignificant change up0.60-1.20The [facility] Physician GroupComment on above:Performed By: #### BNP, BMP, CBC ####[place] [address] USACreatinine Clr Calc Dhipdprl69.30NoMission Family Health Center Physician Group Comment on above:Result Comment: PERFORMED BY:[address] ABHISHEKGaloRadhaHUI, [place] [phone] MEDICAL DIRECTORLLOYD NICHOLSON M.D.Performed By: #### BNP, BMP, CBC ####[address] [address] [place] Estimated GFR19.878 mL/MinNoMission Family Health Center Physician GroupComment on above: Performed By: #### BNP, BMP, CBC ####[address] [address] USAGlucose [Mass/Vol]93 mg/lUPimtqq79-825Yvk [facility] Physician GroupComment on above:Result Comment: Random Glucose Reference Range is dependent on time and content of last meal. Glucose of more than 200 mg/dL in a nonstressed, ambulatory subject supports the diagnosis of Diabetes Mellitus. ADA recommended reference rangePerformed By: #### BNP, BMP, CBC ####[address] [address] USAPotassium [Moles/Vol] 3.6 mmol/LNormal3.5-5.1The [facility] Physician GroupComment on above:Performed By: #### BNP, BMP, CBC ####[address] [address] USASodium [Moles/Vol]139 mmol/SBfzpwc093-266Unf [facility] Physician GroupComment on above:Performed By: #### BNP, BMP, CBC ####[address] [address] USAUrea nitrogen [Mass/Vol]94 mg/dLHigh7-25The [facility] Physician GroupComment on above:Performed By: #### BNP, BMP, CBC ####[address] [address] USAComplete Blood Count Auto Diffon 06-02-2024 Basophils (Bld) [#/Vol]0.0 10*3/uLNormal0.0-0.2The [facility] Comment on above:Result Comment: PERFORMED BY:[address] [place], [place] [phone] MEDICAL DIRECTORLLOYD NICHOLSON M.D.Performed By: #### BNP, BMP, CBC ####[address] [address] [place] Basophils/100 WBC (Bld)0.9 %Normal.The [facility] Physician GroupComment on above:Performed By: #### BNP, BMP, CBC ####[place] [address] USAEosinophils (Bld) [#/Vol]0.4 10*3/uLNormal 0.0-0.45The [facility] Physician GroupComment on above:Performed By: #### BNP, BMP, CBC ####[place] [address] USAEosinophils/100 WBC (Bld)6.2 %Normal.The [facility] Physician GroupComment on above:Performed By: #### BNP, BMP, CBC ####[place] [address] USAErythrocyte distribution width (RBC) [Ratio] 14.0 %Gswfmq67.9-15.3The [facility] Physician GroupComment on above:Performed By: #### BNP, BMP, CBC ####[place] [address] USAHematocrit (Bld) [Volume fraction]28.1 %Low34.0-46.4The [facility] Physician GroupComment on above:Performed By: #### BNP, BMP, CBC ####[place] [address] USAHemoglobin (Bld) [Mass/Vol]9.2 g/dLLow11.8-15.4The [facility] Physician GroupComment on above: Performed By: #### BNP, BMP, CBC ####[place] [address] USALymphocytes (Bld) [#/Vol]1.2 10*3/uLNormal1.00-4.8 The [facility] Physician GroupComment on above:Performed By: #### BNP, BMP, CBC ####[place] [address] [place] Lymphocytes/100 WBC (Bld)20.3 %Normal.The [facility] Physician GroupComment on above:Performed By: #### BNP, BMP, CBC ####[place] [address] USAMCH (RBC) [Entitic mass]28.0 shXixsrg78.7-34.3 The [facility] Physician GroupComment on above:Performed By: #### BNP, BMP, CBC ####[place] [address] USAMCV (RBC) [Entitic vol]85.8 vWGgpuuv51-697Hxd [facility] Physician GroupComment on above:Performed By: #### BNP, BMP, CBC ####[place] [address] USAMean Corpuscular HGB Conc32.7 g/dLNormal 32.0-35.0The [facility] Physician GroupComment on above:Performed By: #### BNP, BMP, CBC ####[place] [address] USAMonocytes (Bld) [#/Vol]0.9 10*3/uLHigh0.0-0.8The [facility] Comment on above:Performed By: #### BNP, BMP, CBC ####[place] [address] USAMonocytes/100 WBC (Bld)15.4 %Normal. The [facility] Physician GroupComment on above:Performed By: #### BNP, BMP, CBC ####[place] [address] [place] Neutrophils (Bld) [#/Vol]3.2 10*3/uLNormal1.8-7.7The [facility] Comment on above:Performed By: #### BNP, BMP, CBC ####[place] [address] USANeutrophils/100 WBC (Bld)57.2 %Normal .The [facility] Physician GroupComment on above:Performed By: #### BNP, BMP, CBC ####[place] [address] USANRBC% 0.1 /100{WBC}Normal0-0.5The [facility] Physician GroupComment on above:Performed By: #### BNP, BMP, CBC ####[place] [address] USAPlatelet mean volume (Bld) [Entitic vol]8.3 fLNormal 6.3-10.7The [facility] Physician GroupComment on above:Performed By: #### BNP, BMP, CBC ####[place] [address] USAPlatelets (Bld) [#/Vol]239 10*3/pUPwjzid930-307Nzy [facility] Comment on above:Performed By: #### BNP, BMP, CBC ####[place] [address] USARBC (Bld) [#/Vol]3.28 10*6/uLLow 3.60-5.00The [facility] Physician GroupComment on above:Performed By: #### BNP, BMP, CBC ####[place] [address] USAWBC (Bld) [#/Vol]5.7 10*3/uLNormal3.8-11.6The [facility] Comment on above:Performed By: #### BNP, BMP, CBC ####[place] [address] USANatriuretic peptide B [Mass/Vol] Ordered By: Isaiah Mejia on 43-42-8980Ehqnemisndj peptide B (Bld) [Mass/Vol] BNP ser/plasHigh5-100Cleveland ClinicAlanine aminotransferase [Enzymatic activity/volume] in Serum or PlasmaOrdered By: Regina Garcia on 47-73-1106NXX [Catalytic activity/Vol]Alanine aminotransferase [Enzymatic activity/volume] in Serum or Plasma7-52C[facility] ClinicAlbumin [Mass/volume] in Serum or Plasma by Bromocresol green (BCG) dye binding metho Ordered By: Regina Garcia on 39-86-9938Nqkezjh BCG dye [Mass/Vol]Albumin [Mass/volume] in Serum or Plasma by Bromocresol green (BCG) dye binding metho 3.5-5.7FMcKitrick HospitalAlkaline phosphatase [Enzymatic activity/volume] in Serum or PlasmaOrdered By: Regina Garcia on 99-43-7626TIK [Catalytic activity/Vol]Alkaline phosphatase [Enzymatic activity/volume] in Serum or Kwvkni69-987CjkzzpginCleveland ClinicAppearance of UrineOrdered By: Regina Garcia on 20-48-8624Xztjprirki (U)Urine appearanceCleVan Wert County HospitalAspartate aminotransferase [Enzymatic activity/volume] in Serum or PlasmaOrdered By: Regina Garcia on 15-52-1082SKK [Catalytic activity/Vol]Aspartate aminotransferase [Enzymatic activity/volume] in Serum or Mmansc03-38PitawyvnfCleveland ClinicBasophils Auto (Bld) [#/Vol]Ordered By: Regina Garcia on 38-88-2894Grfgpbvsv (Bld) [#/Vol]Automated basophil count 0.0-0.2FMcKitrick HospitalBasophils/100 WBC Auto (Bld)Ordered By: Regina Garcia on 11-38-3682Wvucccbrr/100 WBC (Bld)Automated basophil %. [facility] ClinicBilirubin Test strip Ql (U)Ordered By: Regina Garcia on 81-92-8787Daecxozve Ql (U)Bilirubin.total [Presence] in Urine by Test stripNegativeCleveland ClinicBilirubin.total [Mass/volume] in Serum or PlasmaOrdered By: Regina Garcia on 06-01-2024 Bilirubin [Mass/Vol]Bilirubin.total [Mass/volume] in Serum or Plasma0.3-1.0 [facility] ClinicCT head/brain wo conon 59-52-1107CG head/brain wo conNormalThe [facility] Physician GroupCalcium [Mass/volume] in Serum or PlasmaOrdered By: Regina Garcia on 24-49-4328Jidolon [Mass/Vol]Calcium [Mass/volume] in Serum or Plasma8.6-10.3FMcKitrick HospitalCarbon dioxide, total [Moles/volume] in Serum or PlasmaOrdered By: Regina Garcia on 03-07-7503XB7 [Moles/Vol]Carbon dioxide, total [Moles/volume] in Serum or Plasma High21.0-31.0C[facility] ClinicChloride [Moles/volume] in Serum or PlasmaOrdered By: Regina Garcia on 68-37-2755Ypkmjuck [Moles/Vol]Chloride [Moles/volume] in Serum or XctnluIrp06-787WhdpqfevmCleveland ClinicColor Auto (U)Ordered By: Regina Brown on 66-03-0542Qoiov (U)Color of Urine by AutoYellowCleveland ClinicComplete Blood Count Auto Diffon 10-65-6491Vykdapfed (Bld) [#/Vol]0.0 10*3/uLNormal0.0-0.2The [facility] Physician GroupComment on above:Result Comment: PERFORMED BY:[address] [place], [place] [phone] MEDICAL DIRECTORLLOYD NICHOLSON M.D.Performed By: #### CMP, PT, HS TROP, PTT, TSH3, CBC, MG ####[address] [address] USABasophils/100 WBC (Bld)0.5 %Normal.The [facility] Physician GroupComment on above:Performed By: #### CMP, PT, HS TROP, PTT, TSH3, CBC, MG ####[address] [address] USAEosinophils (Bld) [#/Vol]0.2 10*3/uLNormal0.0-0.45The [facility] Physician GroupComment on above: Performed By: #### CMP, PT, HS TROP, PTT, TSH3, CBC, MG ####[address] [address] USAEosinophils/100 WBC (Bld)2.3 % Normal.The [facility] Physician GroupComment on above:Performed By: #### CMP, PT, HS TROP, PTT, TSH3, CBC, MG ####[address] [address] USAErythrocyte distribution width (RBC) [Ratio]14.2 % Lyzvkf72.9-15.3The [facility] Physician GroupComment on above:Performed By: #### CMP, PT, HS TROP, PTT, TSH3, CBC, MG ####[address] [address] USAHematocrit (Bld) [Volume fraction]31.8 %Low 34.0-46.4The [facility] Physician GroupComment on above:Performed By: #### CMP, PT, HS TROP, PTT, TSH3, CBC, MG ####[place] [id number] USAHemoglobin (Bld) [Mass/Vol]10.5 g/dLLow11.8-15.4The [facility] Physician GroupComment on above:Performed By: #### CMP, PT, HS TROP, PTT, TSH3, CBC, MG ####[place] [address] USALymphocytes (Bld) [#/Vol]1.0 10*3/uLNormal1.00-4.8The [facility] Physician GroupComment on above:Performed By: #### CMP, PT, HS TROP, PTT, TSH3, CBC, MG ####[place] [id number] USALymphocytes/100 WBC (Bld)10.3 %Normal.The [facility] Physician GroupComment on above:Performed By: #### CMP, PT, HS TROP, PTT, TSH3, CBC, MG ####[place] [id number] [facility] ([facility]BC) [Entitic mass]28.1 tdQrycpq66.7-34.3The [facility] Physician GroupComment on above: Performed By: #### CMP, PT, HS TROP, PTT, TSH3, CBC, MG ####[place] [address] [facility] (RBC) [Entitic vol]85.4 fL Nzppvq04-437Drb [facility] Physician GroupComment on above:Performed By: #### CMP, PT, HS TROP, PTT, TSH3, CBC, MG ####[place] [address] USAMean Corpuscular HGB Conc33.0 g/dLNormal 32.0-35.0The [facility] Physician GroupComment on above:Performed By: #### CMP, PT, HS TROP, PTT, TSH3, CBC, MG ####[place] [address] USAMonocytes (Bld) [#/Vol]0.7 10*3/uLNormal0.0-0.8The [facility] Physician GroupComment on above:Performed By: #### CMP, PT, HS TROP, PTT, TSH3, CBC, MG ####[place] [address] USAMonocytes/100 WBC (Bld)16.46 %Normal0.00-20.00The [facility] Physician GroupComment on above:Performed By: #### CMP, PT, HS TROP, PTT, TSH3, CBC, MG ####[place] [address] USAMonocytes/100 WBC (Bld)7.2 %Normal.The [facility] Physician GroupComment on above:Performed By: #### CMP, PT, HS TROP, PTT, TSH3, CBC, MG ####[place] [address] USANeutrophils (Bld) [#/Vol]7.5 10*3/uLNormal1.8-7.7The [facility] Physician GroupComment on above: Performed By: #### CMP, PT, HS TROP, PTT, TSH3, CBC, MG ####[place] [address] USANeutrophils/100 WBC (Bld)79.7 %Normal.The [facility] Physician GroupComment on above:Performed By: #### CMP, PT, HS TROP, PTT, TSH3, CBC, MG ####[place] [address] USANRBC%0.1 /100{WBC}Normal0-0.5The [facility] Physician GroupComment on above:Performed By: #### CMP, PT, HS TROP, PTT, TSH3, CBC, MG ####[address] Platelet mean volume (Bld) [Entitic vol]8.7 fLNormal6.3-10.7The [facility] Physician GroupComment on above:Performed By: #### CMP, PT, HS TROP, PTT, TSH3, CBC, MG ####[place] [address] USAPlatelets (Bld) [#/Vol]319 10*3/wZBvurat375-598Aaj [facility] Comment on above:Performed By: #### CMP, PT, HS TROP, PTT, TSH3, CBC, MG ####[place] [address] USARBC (Bld) [#/Vol]3.72 10*6/uLNormal3.60-5.00The [facility] Physician GroupComment on above:Performed By: #### CMP, PT, HS TROP, PTT, TSH3, CBC, MG ####[place] [address] USAWBC (Bld) [#/Vol]9.4 10*3/uLNormal3.8-11.6The [facility] Physician GroupComment on above:Performed By: #### CMP, PT, HS TROP, PTT, TSH3, CBC, MG ####[address] StreetComprehensive Metabolic Panelon 89-55-2707Dufnkks [Mass/Vol]4.4 g/dLNormal3.5-5.7The [facility] Comment on above:Performed By: #### CMP, PT, HS TROP, PTT, TSH3, CBC, MG ####[place] [id number] [place] Albumin/Globulin [Mass ratio]1.5 {ratio}NormalThe [facility] Physician [facility] Comment on above:Performed By: #### CMP, PT, HS TROP, PTT, TSH3, CBC, MG ####[place] [address] USAALP [Catalytic activity/Vol]53 U/KTbrrhu47-715Wrq [facility] Physician GroupComment on above:Performed By: #### CMP, PT, HS TROP, PTT, TSH3, CBC, MG ####[place] [address] USAALT [Catalytic activity/Vol]16 U/LNormal7-52The [facility] Physician GroupComment on above: Performed By: #### CMP, PT, HS TROP, PTT, TSH3, CBC, MG ####[place] [address] USAAnion gap [Moles/Vol]14.8 mmol/LNormal6.0-15.0The [facility] Physician GroupComment on above:Performed By: #### CMP, PT, HS TROP, PTT, TSH3, CBC, MG ####[place] [address] USAAST [Catalytic activity/Vol]22 U/PQiixjb65-11 The [facility] Physician GroupComment on above:Performed By: #### CMP, PT, HS TROP, PTT, TSH3, CBC, MG ####[place] [address] USABilirubin [Mass/Vol]0.6 mg/dLNormal0.3-1.0The [facility] Physician GroupComment on above:Performed By: #### CMP, PT, HS TROP, PTT, TSH3, CBC, MG ####[place] [address] USACalcium [Mass/Vol]10.2 mg/dLNormal8.6-10.3The [facility] Physician GroupComment on above:Performed By: #### CMP, PT, HS TROP, PTT, TSH3, CBC, MG ####[place] [address] [place] Chloride [Moles/Vol]94 mmol/PHyx79-781Kjm [facility] Physician GroupComment on above:Performed By: #### CMP, PT, HS TROP, PTT, TSH3, CBC, MG ####[place] [address] USACO2 [Moles/Vol]33.2 mmol/LHigh21.0-31.0The [facility] Physician GroupComment on above:Performed By: #### CMP, PT, HS TROP, PTT, TSH3, CBC, MG ####[place] [address] [place] [address] USACreatinine [Mass/Vol]3.04 mg/dLHigh0.60-1.20 The [facility] Physician GroupComment on above:Performed By: #### CMP, PT, HS TROP, PTT, TSH3, CBC, MG ####[place] [address] [place] [address] USACreatinine Clr Calc Gunpeyzr52.91NoMission Family Health Center Physician [facility] HospitalComment on above:Performed By: #### CMP, PT, HS TROP, PTT, TSH3, CBC, MG ####[place] [address] [place] [address] USAEstimated GFR15.569 mL/MinNoMission Family Health Center Physician [facility] HospitalComment on above:Performed By: #### CMP, PT, HS TROP, PTT, TSH3, CBC, MG ####[place] [address] [place] [address] USAGlobulin (S) [Mass/Vol]3.0 g/dLMonticello HospitalComment on above:Performed By: #### CMP, PT, HS TROP, PTT, TSH3, CBC, MG ####[place] [address] USAGlucose [Mass/Vol]115 mg/gJOofx84-243 The [facility] Physician GroupComment on above:Result Comment: Random Glucose Reference Range is dependent on time and content of last meal. Glucose of more than 200 mg/dL in a nonstressed, ambulatory subject supports the diagnosis of Diabetes Mellitus. ADA recommended reference rangePerformed By: #### CMP, PT, HS TROP, PTT, TSH3, CBC, MG ####[place] [address] USAPotassium [Moles/Vol]4.0 mmol/LNormal3.5-5.1The [facility] Physician GroupComment on above:Performed By: #### CMP, PT, HS TROP, PTT, TSH3, CBC, MG ####[place] [address] [place] [address] USAProtein [Mass/Vol]7.4 g/dLNormal6.4-8.9The [facility] Comment on above:Performed By: #### CMP, PT, HS TROP, PTT, TSH3, CBC, MG ####[place] [address] [place] [address] USASodium [Moles/Vol]138 mmol/JRkpwbg852-006Skl [facility] Physician [facility] HospitalComment on above: Performed By: #### CMP, PT, HS TROP, PTT, TSH3, CBC, MG ####[place] [address] [place] [address] USAUrea nitrogen [Mass/Vol]111 mg/dLHigh7-25The [facility] Physician GroupComment on above:Performed By: #### CMP, PT, HS TROP, PTT, TSH3, CBC, MG ####[address] [address] USACreatinine [Mass/volume] in Serum or Plasma Ordered By: Regina Garcia on 71-35-6796Ahzgxwiuzl [Mass/Vol]Creatinine [Mass/volume] in Serum or PlasmaHigh0.60-1.20[facility] Creatinine [Mass/volume] in UrineOrdered By: Isaiah Mejia on 06-01-2024 Creatinine (U) [Mass/Vol]Creatinine [Mass/volume] in UrineCleveland ClinicComment on above:No reference range establishedCreatinine, Urine (Random)on 21-87-9817Ztmpbhvtfk, Urine (Random)41.00 mg/dLNoMission Family Health Center Physician [facility] HospitalComment on above:Order Comment: Comment ADD ON to today's UA Result Comment: No reference range establishedPERFORMED BY:[address] ABHISHEKGaloRadhaHUI, [place] [phone] MEDICAL DIRECTORLLOYD NICHOLSON M.D.Performed By: #### KEVIN GIRON ####[facility] [address] [place] [address] USAECG 12 lead ECGon 30-10-3924ISD 12 lead ECGNormalThe [facility] Physician GroupEosinophils Auto (Bld) [#/Vol]Ordered By: Regina Garcia on 00-46-0735Dlstnxhyyes (Bld) [#/Vol] Automated eosinophil count0.0-0.45[facility] Eosinophils/100 WBC Auto (Bld)Ordered By: Regina Garcia on 06-01-2024 Eosinophils/100 WBC (Bld)Automated eosinophil %.[facility] ClinicErythrocyte distribution width Auto (RBC) [Ratio]Ordered By: Regina Garcia on 30-68-5933Zikvkiihxcl distribution width (RBC) [Ratio]Erythrocyte distribution width [Ratio] by Automated count11.9-15.3FMcKitrick HospitalGlobulin Calc (S) [Mass/Vol]Ordered By: Regina Garcia on 06-01-2024 Globulin (S) [Mass/Vol]Serum globulin measurement by calculation (mass/volume) [facility] ClinicGlucose [Mass/volume] in Serum or PlasmaOrdered By: Regina Garcia on 26-55-8718Mjiglgl [Mass/Vol]Glucose [Mass/volume] in Serum or IvabruPrwf76-720GoapbhjllCleveland ClinicComment on above:ADA recommended reference rangeRandom Glucose Reference Range is dependent on time and content of last meal. Glucose of more than 200 mg/dL in a nonstressed, ambulatory subject supports the diagnosisof Diabetes Mellitus.Glucose [Mass/volume] in Urine by Test stripOrdered By: Regina Garcia on 06-01-2024 Glucose Test strip (U) [Mass/Vol]Glucose [Mass/volume] in Urine by Test strip NormalCleveland ClinicHematocrit Auto (Bld) [Volume fraction] Ordered By: Regina Garcia on 98-67-9412Ysgoisjmck (Bld) [Volume fraction] Hematocrit [Volume Fraction] of Blood by Automated afayxPtb39.0-46.4FMcKitrick HospitalHemoglobin Test strip Ql (U)Ordered By: Regina Garcia on 64-38-1368Nexzatzmun Ql (U)Hemoglobin [Presence] in Urine by Test strip NegativeCleveland ClinicHemoglobin [Mass/volume] in Blood Ordered By: Regina Garcia on 20-28-1045Kinjwoqrqa (Bld) [Mass/Vol]Hemoglobin [Mass/volume] in DrfooJxf10.8-15.4FMcKitrick HospitalINR in Platelet poor plasma by Coagulation assayOrdered By: Regina Garcia on 58-09-0460CWH Coag (PPP) [Relative time]INR in Platelet poor plasma by Coagulation assayCleveland ClinicComment on above:INR Therapeutic Range A) Pre- and [...] strip Ql (U)Ordered By: Regina Garcia on 19-05-6524Hbxwxpv Ql (U)Ketones [Presence] in Urine by Test stripNegativeCleveland Clinic Leukocyte esterase [Presence] in Urine by Test stripOrdered By: Regina Garcia on 78-33-5102Ikeucmrsb esterase Test strip Ql (U)Leukocyte esterase [Presence] in Urine by Test stripNegGood Samaritan HospitalLeukocytes [#/volume] corrected for nucleated erythrocytes in Blood by Automated coun Ordered By: Regina Garcia on 09-21-4831KPM corrected for nucl RBC Auto (Bld) [#/Vol]Leukocytes [#/volume] corrected for nucleated erythrocytes in Blood by Automated coun3.8-11.6FMcKitrick HospitalLymphocytes Auto (Bld) [#/Vol]Ordered By: Regina Garcia on 48-09-5079Titmfdpttvn (Bld) [#/Vol] Lymphocytes [#/volume] in Blood by Automated count1.00-4.8C[facility] ClinicLymphocytes/100 WBC Auto (Bld)Ordered By: Regina Garcia on 41-66-9310Lhyveojjzlc/100 WBC (Bld)Lymphocytes/100 leukocytes in Blood by Automated count.[facility] ClinicMCH Auto (RBC) [Entitic mass] Ordered By: Regina Garcia on 44-37-6604BCH (RBC) [Entitic mass]MCH [Entitic mass] by Automated count24.7-34.3FMcKitrick HospitalMCHC Auto (RBC) [Mass/Vol]Ordered By: Regina Garcia on 22-52-9052DRKR (RBC) [Mass/Vol] MCHC [Mass/volume] by Automated count32.0-35.0[facility] MCV Auto (RBC) [Entitic vol]Ordered By: Regina Garcia on 73-62-8942OZS (RBC) [Entitic vol]MCV [Entitic volume] by Automated tetnt17-601WagindrbjCleveland ClinicMagnesiumon 94-03-8152Aknggdane [Mass/Vol]3.3 mg/dLHigh1.9-2.7The [facility] Physician GroupComment on above:Performed By: #### CMP, PT, HS TROP, PTT, TSH3, CBC, MG ####[facility] [address] [place] [address] USAMagnesium [Mass/volume] in Serum or PlasmaOrdered By: Regina Garcia on 90-98-9411Chyvsunse [Mass/Vol]Magnesium [Mass/volume] in Serum or PlasmaHigh1.9-2.7FMcKitrick HospitalMonocyte distribution width [Entitic volume] in Blood by AutomatedOrdered By: Regina Garcia on 06-01-2024 Monocyte distribution width Auto (Bld) [Entitic vol]Monocyte distribution width [Entitic volume] in Blood by Automated0.00-20.00C[facility] ClinicMonocytes Auto (Bld) [#/Vol]Ordered By: Regina Garcia on 06-01-2024 Monocytes (Bld) [#/Vol]Automated blood monocyte count0.0-0.8C[facility] ClinicMonocytes/100 WBC Auto (Bld)Ordered By: Regina Garcia on 93-00-0776Typvmiipr/100 WBC (Bld)Automated monocyte %.[facility] ClinicNeutrophils Auto (Bld) [#/Vol]Ordered By: Regina Garcia on 06-01-2024 Neutrophils (Bld) [#/Vol]Neutrophils [#/volume] in Blood by Automated count 1.8-7.7FMcKitrick HospitalNeutrophils/100 WBC Auto (Bld)Ordered By: Regina Garcia on 92-82-0368Znpztpfbooq/100 WBC (Bld)Automated neutrophil % .Cleveland ClinicNitrite Test strip Ql (U)Ordered By: Regina Garcia on 76-54-2288Aejskax Ql (U)Nitrite [Presence] in Urine by Test strip NegativeCleveland ClinicNo Panel InformationOrdered By: Regina Garcia on 91-96-1992Zlkntrrdk GFR (CKD-EPI)15.569 mL/MinCleveland ClinicPharmacy Creatinine Clearance (Chem14.91Cleveland ClinicNucleated erythrocytes [Presence] in Blood by Automated countOrdered By: Regina Garcia on 32-48-2778Xcwvddfkx RBC Auto Ql (Bld) Nucleated erythrocytes [Presence] in Blood by Automated count0-0.5FMcKitrick HospitalPartial Thromboplastin Timeon 42-81-1927iFOA Coag (Bld) [Time]29.9 kOxksef83.1-36.5The [facility] Hospital Physician GroupComment on above:Result Comment: A hematocrit value greater than 55% may lead to inaccurate results in coagulation testing. Patients having hematocrit values >55% require a special collection tube for coagulation studies. Please contact the laboratory at [phone] for redraw instructions.PERFORMED BY:[facility] [place], [place] [phone] MEDICAL DIRECTORLLOYD NICHOLSON M.D.Performed By: #### CMP, PT, HS TROP, PTT, TSH3, CBC, MG ####[facility] [address] [place] [address] USAPlatelet mean volume Auto (Bld) [Entitic vol]Ordered By: Regina Garcia on 09-89-5115Ekeilvkr mean volume (Bld) [Entitic vol]Platelet mean volume [Entitic volume] in Blood by Automated count6.3-10.7FMcKitrick HospitalPlatelets Auto (Bld) [#/Vol]Ordered By: Regina Garcia on 06-01-2024 Platelets (Bld) [#/Vol]Platelets [#/volume] in Blood by Automated jbami229-152 [facility] ClinicPotassium [Moles/volume] in Serum or Plasma Ordered By: Regina Garcia on 30-28-2762Ytxjxfkht [Moles/Vol]Potassium [Moles/volume] in Serum or Plasma3.5-5.1FMcKitrick HospitalProtein Test strip (U) [Mass/Vol]Ordered By: Regina Garcia on 14-04-5785Gdocnsh (U) [Mass/Vol]Protein [Mass/volume] in Urine by Test stripNegativeCleveland ClinicProtein [Mass/volume] in Serum or PlasmaOrdered By: Regina Garcia on 37-42-7334Uirksoi [Mass/Vol]Protein [Mass/volume] in Serum or Plasma 6.4-8.9[facility] ClinicProthrombin Time INRon 85-58-2137SKD Coag (PPP) [Relative time]0.9 {INR}NormalThe [facility] Hospital Physician GroupComment on above:Result Comment: INR [...] TROP, PTT, TSH3, CBC, MG ####[facility] [place] [id number] USAPT Coag (PPP) [Time]10.3 sNormal9.0-12.9The [facility] Physician GroupComment on above: Result Comment: A hematocrit value greater than 55% may lead to inaccurate results in coagulation testing. Patients having hematocrit values >55% require a special collection tube for coagulation studies. Please contact the laboratory at [phone] for redraw instructions.Performed By: #### CMP, PT, HS TROP, PTT, TSH3, CBC, MG ####[facility] [place] [address] USAProthrombin time (PT)Ordered By: Regina Garcia on 22-24-6960OT Coag (PPP) [Time]Prothrombin time (PT)9.0-12.9[facility] Comment on above:A hematocrit value greater than 55% may lead to inaccurate results in coagulation testing. Patientshaving hematocrit values >55% require a special collection tube for coagulation studies. Please contact the laboratory at [phone] for redraw instructions.RBC Auto (Bld) [#/Vol]Ordered By: Regina Garcia on 02-01-7585KEG (Bld) [#/Vol]Erythrocytes [#/volume] in Blood by Automated count3.60-5.00Mercy Healtherum or plasma albumin/globulin mass ratioOrdered By: Regina Garcia on 06-01-2024 Albumin/Globulin [Mass ratio]Serum or plasma albumin/globulin mass ratio Mercy Healtherum or plasma anion gap determinationOrdered By: Regina Garcia on 46-02-8510Aogqb gap [Moles/Vol]Serum or plasma anion gap determination6.0-15.0Mercy Healthodium [Moles/volume] in Serum or PlasmaOrdered By: Regina Garcia on 13-72-9940Pfzqet [Moles/Vol]Sodium [Moles/volume] in Serum or Gilkkb505-483DazxgxzmrMercy Healthodium [Moles/volume] in UrineOrdered By: Isaiah Mejia on 44-23-2150Qwxjbl (U) [Moles/Vol]Sodium [Moles/volume] in UrineCleveland Clinic Comment on above:No reference range establishedSodium, Urineon 72-20-4816Klfhgf (U) [Moles/Vol]60.0 mmol/LNormalThe [facility] Physician GroupComment on above: Order Comment: Comment ADD ON to today's UAResult Comment: No reference range establishedPerformed By: #### KEVIN GIRON ####[facility] [address] [place] [address] USASpecific gravity Test strip (U) [Rel density] Ordered By: Regina Garcia on 20-71-5753Btgavguh gravity (U) [Rel density] Specific gravity of Urine by Test strip1.001-1.030Cleveland ClinicThyroid Stimulating Hormoneon 55-53-4125FHZ Qn5.13 m[IU]/LNormal0.45-5.33 The [facility] Physician GroupComment on above:Result Comment: PERFORMED BY:[place] [address] ABHISHEKGaloRadhaHUI, [place] [phone] MEDICAL DIRECTORLLOYD NICHOLSON M.D.Performed By: #### CMP, PT, HS TROP, PTT, TSH3, CBC, MG ####[address] [address] USAThyrotropin [Units/volume] in Serum or Plasma Ordered By: Regina Garcia on 32-17-7779VWJ QnThyrotropin [Units/volume] in Serum or Plasma0.45-5.33C[facility] ClinicTroponin I High Sensitivityon 09-67-3042Lsvjdzhi I High Bdbtgnqhval23Jmlrgb8-38Fsr [facility] Physician GroupComment on above:Result Comment: The Troponin units of report have been changed to meet the Chest Pain Accreditationrequirement, element EC5.M1l2. Troponin units are changed from pg/ml to ng/L. Also, the decimal is r emoved and results are in whole numbers.PERFORMED BY:[address] [place], [place] [phone] MEDICAL DIRECTORLLOYD NICHOLSON M.D.Performed By: #### CMP, PT, HS TROP, PTT, TSH3, CBC, MG ####[address] [address] USATroponin I.cardiac [Mass/volume] in Serum or Plasma by Detection limit <= 0.01 ng/Ordered By: Regina Garcia on 67-52-4886Ruinaypy I.cardiac DL <= 0.01 ng/mL [Mass/Vol]Troponin I.cardiac [Mass/volume] in Serum or Plasma by Detection limit <= 0.01 ng/0-15C[facility] ClinicComment on above:The Troponin units of report have been changed to meet the Chest Pain Accreditation requirement, element EC5.M1l2. Troponin units are changed from pg/ml to ng/L. Also, the decimal is removed and results are in whole numbers. Urea nitrogen [Mass/volume] in Serum or PlasmaOrdered By: Regina Garcia on 11-17-9959Fufs nitrogen [Mass/Vol]Urea nitrogen [Mass/volume] in Serum or Plasma [address] StreetUrinalysison 29-54-9284Tocamcgrcw (U) ClearNormalClearSanta Rosa Medical Center Physician GroupComment on above:Order Comment: Name Collection Type:: Clean-Voided MidstreamPerformed By: #### UA ####[address] [address] USABilirubin,Urine NegativeNormalNegativeSanta Rosa Medical Center Physician GroupComment on above:Order Comment: Name Collection Type:: Clean-Voided MidstreamPerformed By: #### UA ####[address] [address] USAColor (U)Light-YellowNormalYellowSanta Rosa Medical Center Physician GroupComment on above:Order Comment: Name Collection Type:: Clean-Voided MidstreamPerformed By: #### UA ####[address] [address] USAGlucose Ql (U)NormalNormalNormalThe [facility] Physician GroupComment on above:Order Comment: Name Collection Type:: Clean-Voided MidstreamPerformed By: #### UA ####[address] [address] USAKetones Ql (U)NegativeNormalNegativeSanta Rosa Medical Center Physician GroupComment on above:Order Comment: Name Collection Type:: Clean-Voided MidstreamPerformed By: #### UA ####[address] [address] [place] Leukocyte esterase Test strip Ql (U)NegativeNormalNegativeSanta Rosa Medical Center Physician GroupComment on above:Order Comment: Name Collection Type:: Clean- Voided MidstreamPerformed By: #### UA ####[address] [place] [address] USANitrite,UrineNegativeNormalNegativeThe [facility] Physician GroupComment on above:Order Comment: Name Collection Type:: Clean-Voided MidstreamPerformed By: #### UA ####[address] [address] USAOccult Blood,UrineNegativeNormal NegativeThe [facility] Physician GroupComment on above:Order Comment: Name Collection Type:: Clean-Voided MidstreamResult Comment: PERFORMED BY:[address] [place], [place] [phone] MEDICAL DIRECTORLLOYD NICHOLSON M.D.Performed By: #### UA ####[address] [address] USApH (U)6.5 [pH]Normal 5.0-9.0The [facility] Physician GroupComment on above:Order Comment: Name Collection Type:: Clean-Voided MidstreamPerformed By: #### UA ####[address] [address] USAProtein,UrineNegative NormalNegativeThe [facility] Physician GroupComment on above:Order Comment: Name Collection Type:: Clean-Voided MidstreamPerformed By: #### UA ####[address] [address] USASpecificy [place],Urine1.203Slyxhr5.001-1.030The [facility] Physician GroupComment on above:Order Comment: Name Collection Type:: Clean-Voided MidstreamPerformed By: #### UA ####[address] [address] USAUrobilinogen,UrineNormalNormalNormalThe [facility] Physician GroupComment on above:Order Comment: Name Collection Type:: Clean-Voided MidstreamPerformed By: #### UA ####[address] [address] USAUrobilinogen Test strip (U) [Mass/Vol]Ordered By: Regina Garcia on 20-50-3797Kqqdgjsiskrl (U) [Mass/Vol]Urobilinogen [Mass/volume] in Urine by Test stripNormalCleveland ClinicWBC Auto (Bld) [#/Vol]Ordered By: Regina Garcia on 64-71-0456JWJ (Bld) [#/Vol]Leukocytes [#/volume] in Blood by Automated count3.8-11.6FMcKitrick HospitalX-ray reportOrdered By: Saman Vo on 24-17-4871Ekcok reportMERCY [facility] Main [place] [address] [place] [address] XRay Report Signed with Addenda Patient: Renuka Owen MR#: [id number] : 1950 Acct:[id number] Age/Sex: 73 / F ADM Date: 5 Loc: ER Room: Type: [facility] ER Attending Dr: Copies to: Regina Garcia DO~ Ordering Provider: Regina Garcia DO Date of Service: 06/01/24 XR/XR tibia/fibula BI: Fall ([id number]) CT/CT cervical spine wo con: fall ([id number]) XR/XR chest 1V: Fall ([id number]) XR/XR knee LT 2V: Fall ADDENDUM 1 [...] biapical scarring. Addendum Dictated By: Saman Vo Jr DO Addendum Signed By: 06/01/24 1316 Addendum Cosigned By: DD/DT: 01 TD/TT: 06/01/24 ADDENDUM 1 XR/XR chest 1V IMPRESSION: NO CERVICAL SPINE FRACTURE Impression dictated by: Saman Vo Jr., D.O.06/01/2024 1:16 PM Dictation Location: RADIO-PC-22 Addendum Dictated [...] Vo Jr., D.O.06/01/2024 1:12 PM Dictation Location: RADIO-PC-22 Transcribed By: BJORN 06/01/24 1312 Dictated By: Saman Vo Jr, DO 06/01/24 1309 Signed By: 06/01/24 1312 [facility] ClinicXR tibia/fibula BIon 62-22-4010ZZ tibia/fibula BINormalThe [facility] Physician GroupaPTT in Platelet poor plasma by Coagulation assayOrdered By: Regina Garcia on 99-55-2468bWMB Coag (PPP) [Time]Activated partial thromboplastin time (aPTT) in platelet poor plasma by coagulation a 25.1-36.5Firelands Regional Medical CenterComment on above:A hematocrit value greater than 55% may lead to inaccurate results in coagulation testing. Patients having hematocrit values >55% require a special collection tube for coagulation studies. Please contact the laboratory at [phone] for redraw instructions. pH Test strip (U)Ordered By: Regina Garcia on 58-25-5333oF (U)pH of Urine by Test strip5.0-9.0[facility] ClinicOphthalmic OCT panelon 49-07-3734WEJUNorth [facility] Eye Images reviewed and comparison made to baseline, Images reviewed. To assess optic nerve function and for use in future follow-up. Reliability: good and adequate. Left Eye Images reviewed and comparison made to baseline, Images reviewed. To assess optic nerve function and for use in future follow-up. Reliability: borderline. Notes Moderate nerve fiber layer (NFL) thinning left eye (OS). Stable right eye (OD). 90/70.[facility] ClevelandRadiology Study observation (narrative)[facility] HospitalBasophils Auto (Bld) [#/Vol]on 64-37-2585Cqbdvuyjw (Bld) [#/Vol]Automated basophil count0.0-0.1FMcKitrick Hospital Basophils/100 WBC Auto (Bld)on 39-97-2069Unexfgsjd/100 WBC (Bld)Automated basophil %0.2-2.0[facility] ClinicEosinophils/100 WBC Auto (Bld) on 54-06-8492Ylkagisjkye/100 WBC (Bld)Automated eosinophil %0.9-7.0[facility] ClinicErythrocyte distribution width Auto (RBC) [Ratio]on 68-11-7071Akgckehemag distribution width (RBC) [Ratio]Erythrocyte distribution width [Ratio] by Automated srjnbQfjs84.0-15.0[facility] Estimated glomerular filtration rate (GFR) non- Americanon 04-17-2024 GFR/1.73 sq M.predicted among non-blacks MDRD (S/P/Bld) [Vol rate/Area]Estimated glomerular filtration rate (GFR) non- AmericanLow>=60 mL/min/1.73m 2 [facility] ClinicHematocrit Auto (Bld) [Volume fraction]on 59-84-0058Rhytrtmzwi (Bld) [Volume fraction]Hematocrit [Volume Fraction] of Blood by Automated yylrzVqz93.0-48.0[facility] ClinicHemoglobin [Mass/volume] in Bloodon 47-86-2808Msymrhnojs (Bld) [Mass/Vol]Hemoglobin [Mass/volume] in WdfmcMxx68.0-16.0[facility] ClinicIron binding capacity [Mass/volume] in Serum or Plasmaon 02-51-7746Utyz binding capacity [Mass/Vol]Iron binding capacity [Mass/volume] in Serum or Tsghqx741.0-450.0 [facility] ClinicIron saturation [Mass Fraction] in Serum or Plasmaon 58-92-4702Uerb saturation [Mass fraction]Iron saturation [Mass Fraction] in Serum or PlasmaCleveland ClinicLaboratory - Chemistry and Chemistry - challengeon 20-41-2335Mpooyzr [Mass/Vol]8.9 mg/dL 8.5-10.1FMcKitrick HospitalChloride [Moles/Vol]106 mmol/L98-107 [facility] ClinicCO2 [Moles/Vol]31.2 mmol/L21.0-32.0[facility] ClinicCobalamin (Vitamin B12) [Mass/Vol]376 pg/tX924-1180 [facility] ClinicComment on above:Performed at: [facility] [address] [id number] Director: Jerad Medina PhD, Phone: [phone] [Mass/Vol]1.27 mg/dLHigh0.55-1.02[facility] ClinicFerritin [Mass/Vol]74.0 ng/mL8.0-252.0[facility] ClinicGFR/1.73 sq M.predicted MDRD (S/P/Bld) [Vol rate/Area]50 mL/min/{1.73_m2} Low>=60 mL/min/1.73m 2FMcKitrick HospitalGlucose [Mass/Vol]90 mg/tV71-973JvcebbovdCleveland ClinicIron [Mass/Vol]97.0 ug/dL50.0-170.0 [facility] ClinicPotassium [Moles/Vol]4.5 mmol/L3.5-5.1FMount St. Mary Hospitalodium [Moles/Vol]144 mmol/H674-507JbswfvvrxCleveland ClinicUrea nitrogen [Mass/Vol]20.0 mg/dLHigh7.0-18.0[facility] ClinicUrea nitrogen/Creatinine [Mass ratio]15.7 mg/mgCleveland ClinicLaboratory - Hematology and Cell countson 79-45-4072Qzysmgvs granulocytes/100 WBC (Bld)0.5 %0.0-0.5FMcKitrick Hospital Leukocytes [#/volume] corrected for nucleated erythrocytes in Blood by Automated counon 22-48-7893UTL corrected for nucl RBC Auto (Bld) [#/Vol]Leukocytes [#/volume] corrected for nucleated erythrocytes in Blood by Automated coun 4.0-11.0[facility] ClinicLymphocytes Auto (Bld) [#/Vol]on 18-29-3491Nqfwoxlpupw (Bld) [#/Vol]Lymphocytes [#/volume] in Blood by Automated count1.2-3.8[facility] ClinicLymphocytes/100 WBC Auto (Bld)on 46-05-1277Fjqngykgdhe/100 WBC (Bld)Lymphocytes/100 leukocytes in Blood by Automated count20.5-60.0[facility] CenterH Auto (RBC) [Entitic mass]on 00-53-3740EKW (RBC) [Entitic mass]MCH [Entitic mass] by Automated count 26.7-34.0[facility] ClinicMCHC Auto (RBC) [Mass/Vol]on 87-77-5367RWKC (RBC) [Mass/Vol]MCHC [Mass/volume] by Automated count29.9-35.2 [facility] ClinicMCV Auto (RBC) [Entitic vol]on 78-53-2041EKB (RBC) [Entitic vol]MCV [Entitic volume] by Automated count81.0-99.0[facility] ClinicMonocytes Auto (Bld) [#/Vol]on 57-57-1613Asxmlbzfj (Bld) [#/Vol]Automated blood monocyte count0.3-0.8[facility] Monocytes/100 WBC Auto (Bld)on 73-75-8710Anyntrgsh/100 WBC (Bld)Automated monocyte %1.7-12.0[facility] ClinicNeutrophils Auto (Bld) [#/Vol]on 23-78-7624Frnjohhelbz (Bld) [#/Vol]Neutrophils [#/volume] in Blood by Automated count1.4-6.5FMcKitrick HospitalNeutrophils/100 WBC Auto (Bld)on 63-45-5337Vpbltcpowik/100 WBC (Bld)Automated neutrophil %43.0-75.0 [facility] ClinicNo Panel Informationon 75-31-9685Hulzpadrtrw # (Auto)0.2 10 3/uL0.0-0.7FMcKitrick HospitalFolate20.00 ng/mL 8.60-58.90C[facility] ClinicImmature Granulocyte # (Auto)0.03 10 3/uL0.00-0.03[facility] ClinicPlatelet mean volume Auto (Bld) [Entitic vol]on 20-88-8828Osrmftcw mean volume (Bld) [Entitic vol]Platelet mean volume [Entitic volume] in Blood by Automated countLow9.5-13.5FMcKitrick HospitalPlatelets Auto (Bld) [#/Vol]on 59-32-8330Aosstutqt (Bld) [#/Vol] Platelets [#/volume] in Blood by Automated -381YdrrokbwnCleveland ClinicRBC Auto (Bld) [#/Vol]on 34-81-1787BWM (Bld) [#/Vol]Erythrocytes [#/volume] in Blood by Automated countLow4.20-5.40Mercy Healtherum or plasma anion gap determinationon 98-24-7085Qhlzu gap [Moles/Vol] Serum or plasma anion gap determinationCleveland ClinicAlanine aminotransferase [Enzymatic activity/volume] in Serum or PlasmaOrdered By: Josh Sosa on 69-67-1985PTP [Catalytic activity/Vol]Alanine aminotransferase [Enzymatic activity/volume] in Serum or PlasmaCleveland ClinicAlbumin [Mass/volume] in Serum or Plasma by Bromocresol green (BCG) dye binding methoOrdered By: Josh Sosa on 90-12-9651Kpzrmuw BCG dye [Mass/Vol] Albumin [Mass/volume] in Serum or Plasma by Bromocresol green (BCG) dye binding methoLow3.5-5.7FMcKitrick HospitalAlkaline phosphatase [Enzymatic activity/volume] in Serum or PlasmaOrdered By: Josh Sosa on 04-89-9857FZQ [Catalytic activity/Vol]Alkaline phosphatase [Enzymatic activity/volume] in Serum or Rjhlaw20-333DsknxqxfeCleveland ClinicAspartate aminotransferase [Enzymatic activity/volume] in Serum or PlasmaOrdered By: Josh Sosa on 46-04-9685JMY [Catalytic activity/Vol]Aspartate aminotransferase [Enzymatic activity/volume] in Serum or Qgocrn32-36VboxmwjbiCleveland Clinic Basophils Auto (Bld) [#/Vol]Ordered By: Josh Sosa on 05-47-8392Auanpdjgt (Bld) [#/Vol]Automated basophil count0.0-0.2FMcKitrick Hospital Basophils/100 WBC Auto (Bld)Ordered By: Josh Sosa on 64-38-6152Mgfhajxmt/100 WBC (Bld)Automated basophil %.[facility] ClinicBilirubin.total [Mass/volume] in Serum or PlasmaOrdered By: Josh Sosa 26-41-2128Jkmcgdmih [Mass/Vol]Bilirubin.total [Mass/volume] in Serum or Plasma0.3-1.0[facility] ClinicCalcium [Mass/volume] in Serum or PlasmaOrdered By: Josh Sosa 84-29-8012Tpilzck [Mass/Vol]Calcium [Mass/volume] in Serum or Plasma Low8.6-10.3FMcKitrick HospitalCarbon dioxide, total [Moles/volume] in Serum or PlasmaOrdered By: Josh Sosa 63-56-4421JD6 [Moles/Vol]Carbon dioxide, total [Moles/volume] in Serum or Ekccxn54.0-31.0[facility] ClinicChloride [Moles/volume] in Serum or PlasmaOrdered By: Josh Sosa 81-85-7463Jkdihtuw [Moles/Vol]Chloride [Moles/volume] in Serum or PlasmaHigh 98-107C[facility] ClinicComplete Blood Count Auto Diffon 13-56-4394Rwjzxrwcd (Bld) [#/Vol]0.0 10*3/uLNormal0.0-0.2The [facility] Physician GroupComment on above:Result Comment: PERFORMED BY:[address] [place], [place] [phone] MEDICAL DIRECTORLLOYD NICHOLSON M.D.Performed By: #### CBC, CMP ####[place] [id number] USABasophils/100 WBC (Bld)0.8 %Normal.The [facility] Physician GroupComment on above:Performed By: #### CBC, CMP ####[place] [id number] USAEosinophils (Bld) [#/Vol]0.2 10*3/uLNormal0.0-0.45The [facility] Hospital Physician GroupComment on above:Performed By: #### CBC, CMP ####[place] [address] USAEosinophils/100 WBC (Bld)3.4 %Normal.The [facility] Physician GroupComment on above:Performed By: #### CBC, CMP ####[place] [id number] USAErythrocyte distribution width (RBC) [Ratio]14.9 %Buuwzj28.9-15.3The [facility] Physician GroupComment on above:Performed By: #### CBC, CMP ####[place] [address] [place] Hematocrit (Bld) [Volume fraction]29.6 %Low34.0-46.4The [facility] Hospital Physician GroupComment on above:Performed By: #### CBC, CMP ####[place] [address] USAHemoglobin (Bld) [Mass/Vol]9.9 g/dLLow 11.8-15.4The [facility] Hospital Physician GroupComment on above:Performed By: #### CBC, CMP ####[place] [address] [place] Lymphocytes (Bld) [#/Vol]1.6 10*3/uLNormal1.00-4.8The [facility] Comment on above:Performed By: #### CBC, CMP ####[place] [address] USALymphocytes/100 WBC (Bld)28.0 %Normal. The [facility] Hospital Physician GroupComment on above:Performed By: #### CBC, CMP ####[address]H (RBC) [Entitic mass]28.8 arZdwapl82.7-34.3The [facility] Hospital Physician GroupComment on above:Performed By: #### CBC, CMP ####[address]V (RBC) [Entitic vol]86.1 tBAezusj59-430Ozx [facility] Physician GroupComment on above:Performed By: #### CBC, CMP ####[place] [address] USAMean Corpuscular HGB Conc33.5 g/nLGghjvn42.0-35.0The [facility] Physician GroupComment on above:Performed By: #### CBC, CMP ####[place] [address] USAMonocytes (Bld) [#/Vol]1.1 10*3/uLHigh0.0-0.8 The [facility] Physician GroupComment on above:Performed By: #### CBC, CMP ####[place] [address] [place] Monocytes/100 WBC (Bld)19.5 %Normal.The [facility] Physician GroupComment on above:Performed By: #### CBC, CMP ####[place] [address] USANeutrophils (Bld) [#/Vol]2.7 10*3/uLNormal1.8-7.7The [facility] Physician GroupComment on above:Performed By: #### CBC, CMP ####[place] [address] [place] Neutrophils/100 WBC (Bld)48.3 %Normal.The [facility] Physician GroupComment on above:Performed By: #### CBC, CMP ####[place] [address] USANRBC%0.2 /100{WBC}Normal0-0.5The [facility] Physician GroupComment on above:Performed By: #### CBC, CMP ####[place] [address] USAPlatelet mean volume (Bld) [Entitic vol]8.0 fLNormal6.3-10.7The [facility] Physician GroupComment on above: Performed By: #### CBC, CMP ####[place] [address] USAPlatelets (Bld) [#/Vol]285 10*3/aOPgebox024-788Etm [facility] Physician GroupComment on above:Performed By: #### CBC, CMP ####[place] [address] USARBC (Bld) [#/Vol]3.44 10*6/uLLow3.60-5.00The [facility] Physician GroupComment on above:Performed By: #### CBC, CMP ####[place] [address] USAWBC (Bld) [#/Vol]5.7 10*3/uLNormal3.8-11.6The [facility] Hospital Physician GroupComment on above:Performed By: #### CBC, CMP ####[place] [address] [place] Comprehensive Metabolic Panelon 05-64-6575Uzmvysa [Mass/Vol]2.9 g/dLLow3.5-5.7 The [facility] Physician GroupComment on above:Performed By: #### CBC, CMP ####[address] [address] [place] Albumin/Globulin [Mass ratio]1.4 {ratio}NormalThe [facility] Comment on above:Performed By: #### CBC, CMP ####[address] [address] USAALP [Catalytic activity/Vol]49 U/L Zslsho64-915Aku [facility] Physician GroupComment on above:Performed By: #### CBC, CMP ####[address] [address] USAALT [Catalytic activity/Vol]13 U/LNormal7-52The [facility] Comment on above:Performed By: #### CBC, CMP ####[address] [address] USAAnion gap [Moles/Vol]9.5 mmol/LNormal 6.0-15.0The [facility] Physician GroupComment on above:Performed By: #### CBC, CMP ####[address] [address] USAAST [Catalytic activity/Vol]13 U/DRcwlax64-08Wmf [facility] Physician GroupComment on above:Performed By: #### CBC, CMP ####[address] [address] USABilirubin [Mass/Vol]1.0 mg/dLNormal0.3-1.0The [facility] Physician GroupComment on above:Performed By: #### CBC, CMP ####[address] [address] USACalcium [Mass/Vol]8.1 mg/dLLow8.6-10.3The [facility] Physician GroupComment on above: Performed By: #### CBC, CMP ####[address] [address] USAChloride [Moles/Vol]109 mmol/TCtdn67-845Pxz [facility] Physician GroupComment on above:Performed By: #### CBC, CMP ####[address] [place] [address] USACO2 [Moles/Vol]27.5 mmol/XWkdtvw32.0-31.0The [facility] Physician GroupComment on above:Performed By: #### CBC, CMP ####[place] [address] USACreatinine [Mass/Vol]0.96 mg/dLNormal0.60-1.20The [facility] Physician [facility] HospitalComment on above:Performed By: #### CBC, CMP ####[place] [address] [place] Creatinine Clr Calc Ryzyusvd68.13NoMission Family Health Center Physician [facility] Memorial HospitalComment on above:Result Comment: PERFORMED BY:[address]GaloBREWSTER, [place] [phone] MEDICAL DIRECTORLLOYD YANEZ M.D.Performed By: #### CBC, CMP ####[place] [address] USAGFR/1.73 sq M.predicted MDRD (S/P/Bld) [Vol rate/Area]mL/min/{1.73_m2}NormalThe [facility] Physician [facility] HospitalComment on above: Performed By: #### CBC, CMP ####[place] [id number] USAGlobulin (S) [Mass/Vol]2.1 g/dLCedars Medical Center Physician Beacham Memorial HospitalComment on above:Performed By: #### CBC, CMP ####[place] [address] USAGlucose [Mass/Vol]96 mg/dLTfwwak34-682Fff [facility] Physician GroupComment on above:Result Comment: Random Glucose Reference Range is dependent on time and content of last meal. Glucose of more than 200 mg/dL in a nonstressed, ambulatory subject supports the diagnosis of Diabetes Mellitus. ADA recommended reference rangePerformed By: #### CBC, CMP ####[place] [address] USAPotassium [Moles/Vol]4.0 mmol/LNormal3.5-5.1The [facility] Physician GroupComment on above:Performed By: #### CBC, CMP ####[facility] [address] [place] [address] USAProtein [Mass/Vol]5.0 g/dLLow6.4-8.9 The [facility] Hospital Physician GroupComment on above:Performed By: #### CBC, CMP ####[facility] [address] [place] [address] USASodium [Moles/Vol]142 mmol/DKgzrti852-843Qok [facility] Physician GroupComment on above: Performed By: #### CBC, CMP ####[facility] [address] [place] [address] USAUrea nitrogen [Mass/Vol]46 mg/dLHigh7-25The [facility] Physician GroupComment on above:Performed By: #### CBC, CMP ####[address] Creatinine [Mass/volume] in Serum or PlasmaOrdered By: Josh Sosa on 04-09-2024 Creatinine [Mass/Vol]Creatinine [Mass/volume] in Serum or Plasma0.60-1.20 [facility] ClinicEosinophils Auto (Bld) [#/Vol]Ordered By: Josh Sosa on 71-42-0006Xlxenybocsv (Bld) [#/Vol]Automated eosinophil count0.0-0.45 [facility] ClinicEosinophils/100 WBC Auto (Bld)Ordered By: Josh Sosa on 65-36-9760Vbhthzrztrw/100 WBC (Bld)Automated eosinophil %.[facility] ClinicErythrocyte distribution width Auto (RBC) [Ratio]Ordered By: Josh Sosa on 59-24-2118Wfvsvvjiqtg distribution width (RBC) [Ratio] Erythrocyte distribution width [Ratio] by Automated count11.9-15.3FMcKitrick HospitalGlobulin Calc (S) [Mass/Vol]Ordered By: Josh Sosa on 28-16-6480Swsoyepo (S) [Mass/Vol]Serum globulin measurement by calculation (mass/volume)[facility] ClinicGlucose [Mass/volume] in Serum or PlasmaOrdered By: Josh Sosa on 40-88-4247Wyepego [Mass/Vol]Glucose [Mass/volume] in Serum or Vuuscn48-562OfnsrzlnuCleveland ClinicComment on above:ADA recommended reference rangeRandom Glucose Reference Range is dependent on time and content of last meal. Glucose of more than 200 mg/dL in a nonstressed, ambulatory subject supports the diagnosisof Diabetes Mellitus. Hematocrit Auto (Bld) [Volume fraction]Ordered By: Josh Sosa on 04-09-2024 Hematocrit (Bld) [Volume fraction]Hematocrit [Volume Fraction] of Blood by Automated xoeduAkh38.0-46.4FMcKitrick HospitalHemoglobin [Mass/volume] in BloodOrdered By: Josh Sosa on 31-50-1367Utlcgijypk (Bld) [Mass/Vol]Hemoglobin [Mass/volume] in MqxxbCsx19.8-15.4FMcKitrick HospitalLeukocytes [#/volume] corrected for nucleated erythrocytes in Blood by Automated counOrdered By: Josh Sosa on 49-81-8074VVB corrected for nucl RBC Auto (Bld) [#/Vol]Leukocytes [#/volume] corrected for nucleated erythrocytes in Blood by Automated coun3.8-11.6FMcKitrick Hospital Lymphocytes Auto (Bld) [#/Vol]Ordered By: Josh Sosa on 36-17-2349Fznpquprtny (Bld) [#/Vol]Lymphocytes [#/volume] in Blood by Automated count1.00-4.8C[facility] ClinicLymphocytes/100 WBC Auto (Bld)Ordered By: Josh Sosa on 70-09-6124Bfjhvxihhuu/100 WBC (Bld)Lymphocytes/100 leukocytes in Blood by Automated count.[facility] CenterH Auto (RBC) [Entitic mass] Ordered By: Josh Sosa on 07-73-3113GYI (RBC) [Entitic mass]MCH [Entitic mass] by Automated count24.7-34.3FRegional Medical CenterHC Auto (RBC) [Mass/Vol]Ordered By: Josh Sosa on 18-45-7508ALHI (RBC) [Mass/Vol]MCHC [Mass/volume] by Automated count32.0-35.0[facility] ClinicMCV Auto (RBC) [Entitic vol]Ordered By: Josh Sosa on 39-07-4298KOJ (RBC) [Entitic vol]MCV [Entitic volume] by Automated eyrbr91-175DjdazgzfxCleveland ClinicMonocytes Auto (Bld) [#/Vol]Ordered By: Josh Sosa on 52-39-2483Pryxhdmxx (Bld) [#/Vol]Automated blood monocyte countHigh0.0-0.8C[facility] ClinicMonocytes/100 WBC Auto (Bld)Ordered By: Josh Sosa on 04-09-2024 Monocytes/100 WBC (Bld)Automated monocyte %.[facility] Neutrophils Auto (Bld) [#/Vol]Ordered By: Josh Sosa on 73-43-2509Nxtwjfudrlp (Bld) [#/Vol]Neutrophils [#/volume] in Blood by Automated count1.8-7.7FMcKitrick HospitalNeutrophils/100 WBC Auto (Bld)Ordered By: Josh Sosa on 72-68-0194Oxsrrjouova/100 WBC (Bld)Automated neutrophil %.[facility] ClinicNo Panel InformationOrdered By: Josh Sosa on 78-87-0338Rburnydmc GFR (CKD-EPI)> 60.0 mL/MinCleveland ClinicPharmacy Creatinine Clearance (Chem46.13Cleveland ClinicNucleated erythrocytes [Presence] in Blood by Automated countOrdered By: Josh Sosa on 04-09-2024 Nucleated RBC Auto Ql (Bld)Nucleated erythrocytes [Presence] in Blood by Automated count0-0.5FMcKitrick HospitalPlatelet mean volume Auto (Bld) [Entitic vol]Ordered By: Josh Sosa on 58-44-1635Qvvbknxg mean volume (Bld) [Entitic vol]Platelet mean volume [Entitic volume] in Blood by Automated count6.3-10.7FMcKitrick HospitalPlatelets Auto (Bld) [#/Vol] Ordered By: Josh Sosa on 21-51-6143Ukgwuvzcl (Bld) [#/Vol]Platelets [#/volume] in Blood by Automated zrpty773-270BqhcdkodiCleveland ClinicPotassium [Moles/volume] in Serum or PlasmaOrdered By: Josh Sosa on 55-45-3207Jblfeyywm [Moles/Vol]Potassium [Moles/volume] in Serum or Plasma3.5-5.1FMcKitrick HospitalProtein [Mass/volume] in Serum or PlasmaOrdered By: Josh Sosa on 98-92-3434Hzsjloz [Mass/Vol]Protein [Mass/volume] in Serum or PlasmaLow6.4-8.9 [facility] ClinicRBC Auto (Bld) [#/Vol]Ordered By: Josh Sosa on 84-80-4128AJJ (Bld) [#/Vol]Erythrocytes [#/volume] in Blood by Automated countLow3.60-5.00Mercy Healtherum or plasma albumin/globulin mass ratioOrdered By: Josh Sosa on 74-04-6739Dqnyudz/Globulin [Mass ratio]Serum or plasma albumin/globulin mass ratioMercy Healtherum or plasma anion gap determinationOrdered By: Josh Soas on 87-12-5965Hnzeq gap [Moles/Vol]Serum or plasma anion gap determination6.0-15.0 Mercy Healthodium [Moles/volume] in Serum or PlasmaOrdered By: Josh Sosa on 22-77-5558Qbpksa [Moles/Vol]Sodium [Moles/volume] in Serum or Offxwv553-827TedbitikuCleveland ClinicUrea nitrogen [Mass/volume] in Serum or PlasmaOrdered By: Josh Sosa on 65-27-9416Zzvz nitrogen [Mass/Vol]Urea nitrogen [Mass/volume] in Serum or PlasmaHigh7-25C[facility] ClinicWBC Auto (Bld) [#/Vol]Ordered By: Josh Sosa on 19-65-0104HHB (Bld) [#/Vol]Leukocytes [#/volume] in Blood by Automated count3.8-11.6FMcKitrick HospitalBasic Metabolic Panelon 69-68-1196Sshvh gap [Moles/Vol] 15.3 mmol/LHigh6.0-15.0The [facility] Physician GroupComment on above:Performed By: #### BMP ####[facility] [address] [place] [address] USACalcium [Mass/Vol]8.6 mg/dLNormal8.6-10.3[facility] Physician [facility] Comment on above:Performed By: #### BMP ####[place] [address] USAChloride [Moles/Vol]103 mmol/LYzksrz10-757Tjz [facility] Physician [facility] HospitalComment on above:Performed By: #### BMP ####[place] [address] USACO2 [Moles/Vol]30.8 mmol/ZFcitdq59.0-31.0[facility] Physician [facility] HospitalComment on above:Performed By: #### BMP ####[place] [address] USACreatinine [Mass/Vol]1.45 mg/dLHigh0.60-1.20[facility] Physician [facility] Comment on above:Performed By: #### BMP ####[place] [address] USACreatinine Clr Calc Xyjcjekp56.48NormHCA Florida [facility] Physician [facility] Memorial HospitalComment on above:Result Comment: PERFORMED BY:[place] [address] [place], [place] [phone] MEDICAL DIRECTORLLOYD NICHOLSON M.D.Performed By: #### BMP ####[address] [address] USAEstimated GFR37.851 mL/MinNoMission Family Health Center Physician [facility] Memorial HospitalComment on above:Performed By: #### BMP ####[address] [address] [place] Glucose [Mass/Vol]92 mg/wNHovkio03-638Mcz [facility] Physician [facility] HospitalComment on above:Result Comment: Random Glucose Reference Range is dependent on time and content of last meal. Glucose of more than 200 mg/dL in a nonstressed, ambulatory subject supports the diagnosis of Diabetes Mellitus. ADA recommended reference rangePerformed By: #### BMP ####[place] [address] USAPotassium [Moles/Vol]4.1 mmol/LNormal3.5-5.1 The [facility] Physician GroupComment on above:Performed By: #### BMP ####[place] [address] USASodium [Moles/Vol]145 mmol/KOdlcky124-370Mat [facility] Physician GroupComment on above: Performed By: #### BMP ####[place] [address] USAUrea nitrogen [Mass/Vol]68 mg/dLHigh7-25The [facility] Physician GroupComment on above:Performed By: #### BMP ####[place] [address] USAComplete Blood Count Auto Diffon 12-19-1350Yhfzslqac (Bld) [#/Vol]0.0 10*3/uLNormal0.0-0.2[facility] Physician [facility] HospitalComment on above:Result Comment: PERFORMED BY:[address] [phone] MEDICAL DIRECTORLLOYD NICHOLSON M.D.Performed By: #### CBC, MG, PHOS, CMP ####[place] [address] [place] Basophils/100 WBC (Bld)0.6 %Normal.[facility] Physician [facility] HospitalComment on above:Performed By: #### CBC, MG, PHOS, CMP ####[place] [address] USAEosinophils (Bld) [#/Vol]0.2 10*3/uL Normal0.0-0.45[facility] Physician [facility] HospitalComment on above:Performed By: #### CBC, MG, PHOS, CMP ####[place] [address] USAEosinophils/100 WBC (Bld)3.5 %Normal.[facility] Comment on above:Performed By: #### CBC, MG, PHOS, CMP ####[place] [address] USAErythrocyte distribution width (RBC) [Ratio]14.6 %Bwenay74.9-15.3The [facility] Physician GroupComment on above:Performed By: #### CBC, MG, PHOS, CMP ####[place] [address] USAHematocrit (Bld) [Volume fraction]32.2 %Low34.0-46.4The [facility] Physician GroupComment on above:Performed By: #### CBC, MG, PHOS, CMP ####[place] [address] USAHemoglobin (Bld) [Mass/Vol]10.9 g/dLLow11.8-15.4The [facility] Physician GroupComment on above:Performed By: #### CBC, MG, PHOS, CMP ####[place] [address] [place] Lymphocytes (Bld) [#/Vol]1.4 10*3/uLNormal1.00-4.8[facility] Comment on above:Performed By: #### CBC, MG, PHOS, CMP ####[place] [address] USALymphocytes/100 WBC (Bld)20.7 %Normal.The [facility] Physician GroupComment on above:Performed By: #### CBC, MG, PHOS, CMP ####[place] [address] USAMCH (RBC) [Entitic mass]28.8 wbDcttzi22.7-34.3The [facility] Physician GroupComment on above:Performed By: #### CBC, MG, PHOS, CMP ####[place] [address] USAMCV (RBC) [Entitic vol]85.2 aJEfvyev02-293Hme [facility] Physician GroupComment on above:Performed By: #### CBC, MG, PHOS, CMP ####[place] [address] USAMean Corpuscular HGB Conc33.7 g/eKAlrtet97.0-35.0The [facility] Physician GroupComment on above:Performed By: #### CBC, MG, PHOS, CMP ####[place] [address] [place] Monocytes (Bld) [#/Vol]1.4 10*3/uLHigh0.0-0.8[facility] Comment on above:Performed By: #### CBC, MG, PHOS, CMP ####[place] [address] USAMonocytes/100 WBC (Bld)20.5 % Normal.The [facility] Physician GroupComment on above:Performed By: #### CBC, MG, PHOS, CMP ####[place] [address] USANeutrophils (Bld) [#/Vol]3.7 10*3/uLNormal1.8-7.7The [facility] Physician GroupComment on above:Performed By: #### CBC, MG, PHOS, CMP ####[place] [address] USANeutrophils/100 WBC (Bld)54.7 %Normal.The [facility] Physician GroupComment on above:Performed By: #### CBC, MG, PHOS, CMP ####[place] [address] USANRBC%0.0 /100{WBC}Normal0-0.5The [facility] Physician GroupComment on above:Performed By: #### CBC, MG, PHOS, CMP ####[place] [address] USAPlatelet mean volume (Bld) [Entitic vol]7.7 fLNormal6.3-10.7The [facility] Physician GroupComment on above:Performed By: #### CBC, MG, PHOS, CMP ####[place] [address] USAPlatelets (Bld) [#/Vol]320 10*3/uL Covfcy313-850Ubn [facility] Physician GroupComment on above:Performed By: #### CBC, MG, PHOS, CMP ####[place] [address] USARBC (Bld) [#/Vol]3.78 10*6/uLNormal3.60-5.00The [facility] Physician GroupComment on above:Performed By: #### CBC, MG, PHOS, CMP ####[place] [address] USAWBC (Bld) [#/Vol]6.7 10*3/uLNormal3.8-11.6The [facility] Physician GroupComment on above:Performed By: #### CBC, MG, PHOS, CMP ####[place] [address] USAComprehensive Metabolic Panelon 38-57-2825Sswhrsx [Mass/Vol]3.1 g/dLLow3.5-5.7The [facility] Physician GroupComment on above: Performed By: #### CBC, MG, PHOS, CMP ####[place] [address] USAAlbumin/Globulin [Mass ratio]1.3 {ratio}Normal The [facility] Physician GroupComment on above:Performed By: #### CBC, MG, PHOS, CMP ####[place] [address] USAALP [Catalytic activity/Vol]52 U/DKqlfca31-804Sfu [facility] Physician GroupComment on above:Performed By: #### CBC, MG, PHOS, CMP ####[place] [address] USAALT [Catalytic activity/Vol]13 U/L Normal7-52The [facility] Physician GroupComment on above:Performed By: #### CBC, MG, PHOS, CMP ####[place] [address] USAAnion gap [Moles/Vol]11.3 mmol/LNormal6.0-15.0The [facility] Physician GroupComment on above:Performed By: #### CBC, MG, PHOS, CMP ####[place] [address] USAAST [Catalytic activity/Vol]14 U/GGzwmru14-41Gyl [facility] Physician GroupComment on above: Performed By: #### CBC, MG, PHOS, CMP ####[place] [address] USABilirubin [Mass/Vol]0.9 mg/dLNormal0.3-1.0The [facility] Physician GroupComment on above:Performed By: #### CBC, MG, PHOS, CMP ####[place] [address] USACalcium [Mass/Vol]8.5 mg/dLLow8.6-10.3The [facility] Physician GroupComment on above: Performed By: #### CBC, MG, PHOS, CMP ####[place] [address] USAChloride [Moles/Vol]107 mmol/OJfjwie93-039Izn [facility] Physician GroupComment on above:Performed By: #### CBC, MG, PHOS, CMP ####[place] [address] USACO2 [Moles/Vol]29.4 mmol/HVakyho81.0-31.0The [facility] Physician GroupComment on above:Performed By: #### CBC, MG, PHOS, CMP ####[place] [address] USACreatinine [Mass/Vol]1.37 mg/dL Significant change up0.60-1.20The [facility] Physician GroupComment on above: Performed By: #### CBC, MG, PHOS, CMP ####[place] [address] USACreatinine Clr Calc Wutohdqy85.26NormalThe [facility] Physician GroupComment on above:Performed By: #### CBC, MG, PHOS, CMP ####[address] [place] [address] [place] Estimated GFR40.518 mL/MinNormEating Recovery Center a Behavioral HospitalComment on above: Performed By: #### CBC, MG, PHOS, CMP ####[place] [address] USAGlobulin (S) [Mass/Vol]2.4 g/dLNoMission Family Health Center Physician [facility] HospitalComment on above:Performed By: #### CBC, MG, PHOS, CMP ####[place] [address] USAGlucose [Mass/Vol]95 mg/ePMjbwps81-862Kcs [facility] Physician [facility] HospitalComment on above: Result Comment: Random Glucose Reference Range is dependent on time and content of last meal. Glucose of more than 200 mg/dL in a nonstressed, ambulatory subject supports the diagnosis of Diabetes Mellitus. ADA recommended reference rangePerformed By: #### CBC, MG, PHOS, CMP ####[place] [address] USAPotassium [Moles/Vol]3.7 mmol/LNormal 3.5-5.1[facility] Physician [facility] HospitalComment on above:Performed By: #### CBC, MG, PHOS, CMP ####[place] [address] USAProtein [Mass/Vol]5.5 g/dLLow6.4-8.9[facility] Physician [facility] HospitalComment on above:Performed By: #### CBC, MG, PHOS, CMP ####[place] [address] USASodium [Moles/Vol]144 mmol/L Significant change igls468-744Nzw [facility] Physician [facility] HospitalComment on above: Performed By: #### CBC, MG, PHOS, CMP ####[place] [address] USAUrea nitrogen [Mass/Vol]91 mg/dLSignificant change up7-25The [facility] Physician [facility] HospitalComment on above:Performed By: #### CBC, MG, PHOS, CMP ####[address] [place] [address] USAMagnesiumon 24-98-6446Wrwniujdl [Mass/Vol]2.0 mg/dLNormal1.9-2.7The [facility] Physician GroupComment on above:Result Comment: PERFORMED BY:[place] [address] [address] SNYDERRadhaHUIMILTON, [place] [phone] MEDICAL DIRECTORLLOYD NICHOLSON M.D.Performed By: #### CBC, MG, PHOS, CMP ####[address] [address] [place] Magnesium [Mass/volume] in Serum or PlasmaOrdered By: Josh Sosa on 04-08-2024 Magnesium [Mass/Vol]Magnesium [Mass/volume] in Serum or Plasma1.9-2.7FMcKitrick HospitalPhosphate [Mass/volume] in Serum or PlasmaOrdered By: Josh Sosa on 76-39-1927Qfldemqyw [Mass/Vol]Phosphate [Mass/volume] in Serum or Plasma2.5-4.5FMcKitrick HospitalPhosphoruson 72-63-0793Cfuyvmvts [Mass/Vol]3.9 mg/dLNormal2.5-4.5The [facility] Physician GroupComment on above: Performed By: #### CBC, MG, PHOS, CMP ####[address] [address] USAAppearance of UrineOrdered By: Romel William on 89-02-9731Dbwmnwczay (U)Urine appearanceCleVan Wert County Hospital B-Type Natriuretic Peptideon 03-14-1307Dpqakzbsasv peptide B (Bld) [Mass/Vol] 193.0 pg/mLHigh5-100The [facility] Physician GroupComment on above:Result Comment: PERFORMED BY:[place] [address] DONNIE WEISSAlirioHUIMILTON, [place] [phone] MEDICAL DIRECTORLLOYD NICHOLSON M.D. Performed By: #### BNP, HS TROP, CMP, SCAN CBC, CK, MG ####[address] [address] USABilirubin Test strip Ql (U) Ordered By: Romel William on 44-21-6765Tqkwlcubj Ql (U)Bilirubin.total [Presence] in Urine by Test stripNegativeCleveland ClinicCT head/brain wo conon 68-81-1138XK head/brain wo conNormalThe [facility] Physician [facility] HospitalColor Auto (U)Ordered By: Romel William on 95-86-1388Oimom (U)Color of Urine by Auto YellowCleveland ClinicComprehensive Metabolic Panelon 02-19-1034Whpwjsg [Mass/Vol]3.8 g/dLNormal3.5-5.7The [facility] Physician [facility] Comment on above:Performed By: #### BNP, HS TROP, CMP, SCAN CBC, CK, MG ####[address] [place] [address] [place] Albumin/Globulin [Mass ratio]1.4 {ratio}NormalThe [facility] Physician [facility] Comment on above:Performed By: #### BNP, HS TROP, CMP, SCAN CBC, CK, MG ####[address] [place] [address] USAALP [Catalytic activity/Vol]56 U/XVmhxps70-854Rcv [facility] Physician GroupComment on above:Performed By: #### BNP, HS TROP, CMP, SCAN CBC, CK, MG ####[address] [place] [address] USAALT [Catalytic activity/Vol]16 U/LNormal7-52The [facility] Physician GroupComment on above: Performed By: #### BNP, HS TROP, CMP, SCAN CBC, CK, MG ####[address] [place] [address] USAAnion gap [Moles/Vol]18.0 mmol/LHigh6.0-15.0The [facility] Physician GroupComment on above:Performed By: #### BNP, HS TROP, CMP, SCAN CBC, CK, MG ####[address] [place] [address] USAAST [Catalytic activity/Vol]20 U/FOynide10-24 The [facility] Physician GroupComment on above:Performed By: #### BNP, HS TROP, CMP, SCAN CBC, CK, MG ####[place] [address] USABilirubin [Mass/Vol]0.8 mg/dLNormal0.3-1.0The [facility] Physician [facility] HospitalComment on above:Performed By: #### BNP, HS TROP, CMP, SCAN CBC, CK, MG ####[place] [address] USACalcium [Mass/Vol]9.1 mg/dLNormal8.6-10.3The [facility] Physician [facility] Comment on above:Performed By: #### BNP, HS TROP, CMP, SCAN CBC, CK, MG ####[place] [address] USAChloride [Moles/Vol]94 mmol/ROoe23-755Aon [facility] Physician [facility] HospitalComment on above: Performed By: #### BNP, HS TROP, CMP, SCAN CBC, CK, MG ####[place] [address] USACO2 [Moles/Vol]30.0 mmol/L Frndfw62.0-31.0The [facility] Physician [facility] HospitalComment on above:Performed By: #### BNP, HS TROP, CMP, SCAN CBC, CK, MG ####[place] [address] USACreatinine [Mass/Vol]2.96 mg/dLHigh0.60-1.20The [facility] Physician GroupComment on above:Performed By: #### BNP, HS TROP, CMP, SCAN CBC, CK, MG ####[place] [id number] USACreatinine Clr Calc Fwerhgem46.24NormHCA Florida [facility] Physician [facility] Comment on above:Performed By: #### BNP, HS TROP, CMP, SCAN CBC, CK, MG ####[place] [address] [place] Estimated GFR16.075 mL/MinNoMission Family Health Center Physician GroupComment on above: Performed By: #### BNP, HS TROP, CMP, SCAN CBC, CK, MG ####[place] [address] USAGlobulin (S) [Mass/Vol]2.8 g/dL NormalThe [facility] Physician GroupComment on above:Performed By: #### BNP, HS TROP, CMP, SCAN CBC, CK, MG ####[place] [address] USAGlucose [Mass/Vol]109 mg/kLYllk50-656Dsm [facility] Physician GroupComment on above:Result Comment: Random Glucose Reference Range is dependent on time and content of last meal. Glucose of more than 200 mg/dL in a nonstressed, ambulatory subject supports the diagnosis of Diabetes Mellitus. ADA recommended reference rangePerformed By: #### BNP, HS TROP, CMP, SCAN CBC, CK, MG ####[place] [address] [place] Potassium [Moles/Vol]4.0 mmol/LNormal3.5-5.1The [facility] Physician [facility] HospitalComment on above:Performed By: #### BNP, HS TROP, CMP, SCAN CBC, CK, MG ####[place] [address] USAProtein [Mass/Vol]6.6 g/dLNormal6.4-8.9The [facility] Physician GroupComment on above:Performed By: #### BNP, HS TROP, CMP, SCAN CBC, CK, MG ####[place] [address] USASodium [Moles/Vol]138 mmol/VJypcxe875-035Jvi [facility] Physician GroupComment on above:Performed By: #### BNP, HS TROP, CMP, SCAN CBC, CK, MG ####[place] [address] USAUrea nitrogen [Mass/Vol]138 mg/dLHigh7-25The [facility] Comment on above:Performed By: #### BNP, HS TROP, CMP, SCAN CBC, CK, MG ####[facility] [address] [place] [id number] USACreatine Kinaseon 59-60-6792VO [Catalytic activity/Vol]77 U/FAdrxwg29-797Gwy [facility] Physician GroupComment on above:Performed By: #### BNP, HS TROP, CMP, SCAN CBC, CK, MG ####[facility] [address] Creatine kinase [Enzymatic activity/volume] in Serum or PlasmaOrdered By: Romel William on 93-80-8252WE [Catalytic activity/Vol]Creatine kinase [Enzymatic activity/volume] in Serum or Urryok76-299YcukkztyzCleveland ClinicECG 12 lead ECGon 89-31-1857WST 12 lead ECGNoMission Family Health Center Physician Group Erythrocyte morphology finding [Identifier] in BloodOrdered By: Romel William on 24-88-0414QNV morphology finding Nom (Bld)RBC morphologyCleveland ClinicGlucose [Mass/volume] in Urine by Test stripOrdered By: Romel William on 06-09-8816Xjdzigt Test strip (U) [Mass/Vol]Glucose [Mass/volume] in Urine by Test stripNormalCleveland ClinicHemoglobin Test strip Ql (U)Ordered By: Romel William on 28-94-9187Xhkixpbhic Ql (U)Hemoglobin [Presence] in Urine by Test stripNegGood Samaritan Hospital Hypochromia LM Ql (Bld)Ordered By: Romel William on 44-13-4957Sfrqxroucyn Ql (Bld)Hypochromia [Presence] in Blood by Light microscopyCleveland ClinicKetones Test strip Ql (U)Ordered By: Romel William on 04-07-2024 Ketones Ql (U)Ketones [Presence] in Urine by Test stripNegGood Samaritan HospitalLeukocyte esterase [Presence] in Urine by Test strip Ordered By: Romel William on 33-70-8667Btzuarpsi esterase Test strip Ql (U) Leukocyte esterase [Presence] in Urine by Test stripNegGood Samaritan HospitalMagnesiumon 87-01-7799Tqpctixwg [Mass/Vol]2.1 mg/dLNormal1.9-2.7 The [facility] Physician GroupComment on above:Result Comment: PERFORMED BY:[facility] FIEL[address] AVAlirioHUI, [place] [phone] MEDICAL DIRECTORLLOYD NICHOLSON M.D.Performed By: #### BNP, HS TROP, CMP, SCAN CBC, CK, MG ####[facility] [address] [place] [address] USAMonocyte distribution width [Entitic volume] in Blood by AutomatedOrdered By: Romel William on 59-52-0820Apygqpze distribution width Auto (Bld) [Entitic vol]Monocyte distribution width [Entitic volume] in Blood by AutomatedHigh0.00-20.00Cleveland ClinicComment on above:For adults in ED, MDW > 20.0 may be associated with a higher risk of sepsis during the first 12 hrs of hospital admissionNatriuretic peptide B [Mass/Vol]Ordered By: Romel William on 33-71-8291Labinxffcuh peptide B (Bld) [Mass/Vol]BNP ser/plasHigh5-100Cleveland ClinicNitrite Test strip Ql (U)Ordered By: Romel William on 00-41-4014Vcpxlfh Ql (U)Nitrite [Presence] in Urine by Test stripNegGood Samaritan Hospital Platelet adequacy [Presence] in Blood by Light microscopyOrdered By: Romel William on 89-71-7367Epxutwoyo LM Ql (Bld)Platelet adequacy [Presence] in Blood by Light microscopyNormalCleveland ClinicPlatelet morphology finding [Identifier] in BloodOrdered By: Romel William on 67-44-7030Qierwsgn morphology finding Nom (Bld)Platelet morphology finding [Identifier] in Blood NormalCleveland ClinicProtein Test strip (U) [Mass/Vol]Ordered By: Romel William on 44-51-6715Tijtuxf (U) [Mass/Vol]Protein [Mass/volume] in Urine by Test stripNegativeMercy Healthcan and CBCon 73-39-9121Ewjiodcbs (Bld) [#/Vol]0.1 10*3/uLNormal0.0-0.2The [facility] Physician GroupComment on above:Result Comment: PERFORMED BY:[address] [place]AMARCUSBREWSTER, [place] [phone] MEDICAL DIRECTORLLOYD NICHOLSON M.D.Performed By: #### BNP, HS TROP, CMP, SCAN CBC, CK, MG ####[address] [address] USABasophils/100 WBC (Bld)0.6 %Normal.The [facility] Physician GroupComment on above:Performed By: #### BNP, HS TROP, CMP, SCAN CBC, CK, MG ####[address] [address] USAEosinophils (Bld) [#/Vol]0.3 10*3/uLNormal0.0-0.45The [facility] Physician GroupComment on above: Performed By: #### BNP, HS TROP, CMP, SCAN CBC, CK, MG ####[address] [address] USAEosinophils/100 WBC (Bld)2.6 % Normal.The [facility] Physician GroupComment on above:Performed By: #### BNP, HS TROP, CMP, SCAN CBC, CK, MG ####[address] [address] USAErythrocyte distribution width (RBC) [Ratio]14.5 % Ufbtvc06.9-15.3The [facility] Physician GroupComment on above:Performed By: #### BNP, HS TROP, CMP, SCAN CBC, CK, MG ####[address] [address] USAHematocrit (Bld) [Volume fraction]34.3 %Normal 34.0-46.4The [facility] Physician GroupComment on above:Performed By: #### BNP, HS TROP, CMP, SCAN CBC, CK, MG ####[address] [address] USAHemoglobin (Bld) [Mass/Vol]11.4 g/dLLow11.8-15.4The [facility] Physician GroupComment on above:Performed By: #### BNP, HS TROP, CMP, SCAN CBC, CK, MG ####[place] [address] USAHypochromasiaSlightNormalThe [facility] Physician GroupComment on above: Performed By: #### BNP, HS TROP, CMP, SCAN CBC, CK, MG ####[address] [address] USALymphocytes (Bld) [#/Vol]1.7 10*3/uLNormal1.00-4.8The [facility] Physician GroupComment on above:Performed By: #### BNP, HS TROP, CMP, SCAN CBC, CK, MG ####[address] [address] USALymphocytes/100 WBC (Bld)13.7 %Normal.The [facility] Physician GroupComment on above:Performed By: #### BNP, HS TROP, CMP, SCAN CBC, CK, MG ####[address] [address] [facility] [place] [Entitic mass]28.0 iqBqtgzj18.7-34.3The [facility] Physician GroupComment on above:Performed By: #### BNP, HS TROP, CMP, SCAN CBC, CK, MG ####[address] [address] [facility] [place]) [Entitic vol]84.2 yXXwactp90-732Csq [facility] Physician GroupComment on above:Performed By: #### BNP, HS TROP, CMP, SCAN CBC, CK, MG ####[address] [address] USAMean Corpuscular HGB Conc33.2 g/uEUstzqi85.0-35.0The [facility] Physician GroupComment on above: Performed By: #### BNP, HS TROP, CMP, SCAN CBC, CK, MG ####[place] [address] [facility] HOSPITALMonocytes (Bld) [#/Vol]1.7 10*3/uLHigh0.0-0.8The [facility] Physician GroupComment on above:Performed By: #### BNP, HS TROP, CMP, SCAN CBC, CK, MG ####[place] [address] USAMonocytes/100 WBC (Bld)20.54 %High0.00-20.00The [facility] Physician GroupComment on above:Result Comment: For adults in ED, MDW > 20.0 may be associated with a higher risk of sepsis during the first 12 hrs of hospital admissionPerformed By: #### BNP, HS TROP, CMP, SCAN CBC, CK, MG ####[place] [address] [place] Monocytes/100 WBC (Bld)14.0 %Normal.The [facility] Physician GroupComment on above:Performed By: #### BNP, HS TROP, CMP, SCAN CBC, CK, MG ####[place] [address] USANeutrophils (Bld) [#/Vol]8.4 10*3/uLHigh1.8-7.7The [facility] Physician GroupComment on above: Performed By: #### BNP, HS TROP, CMP, SCAN CBC, CK, MG ####[place] [address] USANeutrophils/100 WBC (Bld)69.1 % Normal.The [facility] Physician GroupComment on above:Performed By: #### BNP, HS TROP, CMP, SCAN CBC, CK, MG ####[place] [id number] USANRBC%0.1 /100{WBC}Normal0-0.5The [facility] Physician GroupComment on above:Performed By: #### BNP, HS TROP, CMP, SCAN CBC, CK, MG ####[place] [address] USAPlatelet EstimateNormalNormalNormalThe [facility] Physician GroupComment on above: Performed By: #### BNP, HS TROP, CMP, SCAN CBC, CK, MG ####[address] [address] USAPlatelet mean volume (Bld) [Entitic vol]7.8 fLNormal6.3-10.7The [facility] Physician GroupComment on above: Performed By: #### BNP, HS TROP, CMP, SCAN CBC, CK, MG ####[address] [address] USAPlatelet MorphologyNormalNormal NormalThe [facility] Physician GroupComment on above:Result Comment: PERFORMED BY:[address]ETGaloBREWSTER, [place] [phone] MEDICAL DIRECTORLLOYD NICHOLSON M.D.Performed By: #### BNP, HS TROP, CMP, SCAN CBC, CK, MG ####[address] [address] USAPlatelets (Bld) [#/Vol]395 10*3/yQJrtulr964-361Xbs [facility] Physician GroupComment on above:Performed By: #### BNP, HS TROP, CMP, SCAN CBC, CK, MG ####[address] [address] USARBC (Bld) [#/Vol]4.07 10*6/uLNormal3.60-5.00The [facility] Physician GroupComment on above:Performed By: #### BNP, HS TROP, CMP, SCAN CBC, CK, MG ####[address] [address] USAWBC (Bld) [#/Vol]12.2 10*3/uLHigh3.8-11.6The [facility] Physician GroupComment on above:Performed By: #### BNP, HS TROP, CMP, SCAN CBC, CK, MG ####[address] [address] USASpecific gravity Test strip (U) [Rel density]Ordered By: Romel William on 77-24-5521Ydicygty gravity (U) [Rel density]Specific gravity of Urine by Test strip1.001-1.030Cleveland ClinicTroponin I High Sensitivityon 49-79-6932Xptpyvax I High Hjvmopatoyl60.9 pg/mLHigh0.0-15.0The [facility] Physician GroupComment on above: Result Comment: PERFORMED BY:[address] [place], [place] [phone] MEDICAL DIRECTORLLOYD YANEZ M.D.Performed By: #### BNP, HS TROP, CMP, SCAN CBC, CK, MG ####[facility] [address] [place] [address] USATroponin I.cardiac [Mass/volume] in Serum or Plasma by Detection limit <= 0.01 ng/Ordered By: Romel William on 57-05-9389Moghczsz I.cardiac DL <= 0.01 ng/mL [Mass/Vol] Troponin I.cardiac [Mass/volume] in Serum or Plasma by Detection limit <= 0.01 ng/High0.0-15.0Cleveland ClinicUrinalysison 04-07-2024 Appearance (U)ClearNormalClearThe [facility] Physician GroupComment on above: Order Comment: Name Collection Type:: Clean-Voided MidstreamPerformed By: #### UA ####[address] [address] [place] Bilirubin,UrineNegativeNormalNegativeThe [facility] Physician GroupComment on above:Order Comment: Name Collection Type:: Clean-Voided MidstreamPerformed By: #### UA ####[address] [address] USAColor (U)ColorlessNormalYellowThe North Carolina Specialty Hospital Physician GroupComment on above: Order Comment: Name Collection Type:: Clean-Voided MidstreamPerformed By: #### UA ####[address] [address] [place] Glucose Ql (U)NormalNormalNormalThe [facility] Physician GroupComment on above: Order Comment: Name Collection Type:: Clean-Voided MidstreamPerformed By: #### UA ####[address] [address] [place] Ketones Ql (U)NegativeNormalNegativeThe [facility] Physician GroupComment on above:Order Comment: Name Collection Type:: Clean-Voided MidstreamPerformed By: #### UA ####[address] [address] USALeukocyte esterase Test strip Ql (U)NegativeNormalNegativeThe [facility] Hospital Physician GroupComment on above:Order Comment: Name Collection Type:: Clean- Voided MidstreamPerformed By: #### UA ####[address] [address] USANitrite,UrineNegativeNormalNegativeThe [facility] Physician GroupComment on above:Order Comment: Name Collection Type:: Clean-Voided MidstreamPerformed By: #### UA ####[address] [address] USAOccult Blood,UrineNegativeNormal NegativeThe [facility] Hospital Physician GroupComment on above:Order Comment: Name Collection Type:: Clean-Voided MidstreamResult Comment: PERFORMED BY:[address] [place], [place] [phone] MEDICAL DIRECTORLLOYD NICHOLSON M.D.Performed By: #### UA ####[address] [address] USApH (U)5.0 [pH]Normal 5.0-9.0The [facility] Hospital Physician GroupComment on above:Order Comment: Name Collection Type:: Clean-Voided MidstreamPerformed By: #### UA ####[address] [address] USAProtein,UrineNegative NormalNegativeThe [facility] Physician GroupComment on above:Order Comment: Name Collection Type:: Clean-Voided MidstreamPerformed By: #### UA ####[address] [address] [place]ASpecificy [place],Urine1.273Tqybre5.001-1.030[facility] Physician GroupComment on above:Order Comment: Name Collection Type:: Clean-Voided MidstreamPerformed By: #### UA ####[facility] [address] [place] [address] USAUrobilinogen,UrineNormalNormalNormalThe [facility] Hospital Physician GroupComment on above:Order Comment: Name Collection Type:: Clean-Voided MidstreamPerformed By: #### UA ####[facility] [address] [place] [address] USAUrobilinogen Test strip (U) [Mass/Vol]Ordered By: Romel William on 04-07-2024 Urobilinogen (U) [Mass/Vol]Urobilinogen [Mass/volume] in Urine by Test strip [facility] HospitalXR chest 2V*on 75-86-8201GJ chest 2V* NormalSanta Rosa Medical Center Physician Beacham Memorial HospitalpH Test strip (U)Ordered By: Romel William on 91-60-4387rE (U)pH of Urine by Test strip5.0-9.0Cleveland ClinicEstimated glomerular filtration rate (GFR) non- Americanon 19-51-4130ZXF/1.73 sq M.predicted among non-blacks MDRD (S/P/Bld) [Vol rate/Area]Estimated glomerular filtration rate (GFR) non- AmericanLow>=60 mL/min/1.73m 2FMcKitrick HospitalLaboratory - Chemistry and Chemistry - challengeon 94-35-5635Wdaxgbx [Mass/Vol]9.8 mg/dL8.5-10.1FMcKitrick HospitalChloride [Moles/Vol]100 mmol/W47-307UljmpzjnsCleveland ClinicCO2 [Moles/Vol]31.8 mmol/L21.0-32.0C[facility] ClinicCreatinine [Mass/Vol]1.74 mg/dLHigh0.55-1.02Cleveland ClinicGFR/1.73 sq M.predicted MDRD (S/P/Bld) [Vol rate/Area]35 mL/min/{1.73_m2} Low>=60 mL/min/1.73m 2FMcKitrick HospitalGlucose [Mass/Vol]96 mg/oH90-393WvhhamqpyCleveland ClinicPotassium [Moles/Vol]3.8 mmol/L 3.5-5.1FMount St. Mary Hospitalodium [Moles/Vol]141 mmol/Z973-009 Cleveland ClinicUrea nitrogen [Mass/Vol]48.0 mg/dLHigh7.0-18.0 Cleveland ClinicUrea nitrogen/Creatinine [Mass ratio]27.6 mg/mg [facility]cy Healtherum or plasma anion gap determinationon 39-49-2177Ukafa gap [Moles/Vol]Serum or plasma anion gap determinationCleveland ClinicXR Sinuses 3 Viewson 75-35[place], [place] [address] XRay Report Signed Patient: RENUKA OWEN MR#: [id number] : 1950 Acct:[id number] Age/Sex: 73 / F ADM Date: 03/23/24 Loc: RAD Attending Dr: Chuck Cope M.D. Ordering Physician: Chuck Cope M.D. Date of Service: 03/23/24 Procedure(s): XR sinus min 3V Accession Number(s): [id number] cc: Sylvester Jacob D.O.; Chuck Cope M.D. [place] [address] Patient Name: RENUKA OWEN MRN: [facility]:[id number] date: 1950 Sex: F Assigned Patient Location: [facility] Current Patient Location: Accession/Order Number: [id number] Exam Date: 03/23/2024 14:19 Report Date: 03/24/2024 [...] M.D. Signed By: 03/24/241551 DD/ 48 TD/TT: Health Education Coordinator:TBHRadiology, Radiologist, - 03/24/2024 [place] [address] XRay Report Signed Patient: RENUKA OWEN MR#: [id number] : 1950 Acct:[id number] Age/Sex: 73 / F ADM Date: 03/23/24 Loc: RAD Attending Dr: Chuck Cope M.D. Ordering Physician: Chuck Cope M.D. Date of Service: 03/23/24 Procedure(s): XR sinus min 3V Accession Number(s): [id number] cc: Sylvester Jacob D.O.; Chuck Cope M.D. The [place] [id number] Patient Name: RENUKA OWEN MRN: [id number] date: 1950 Sex: F Assigned Patient Location: [facility] Current Patient Location: Accession/Order Number: [id number] Exam Date: 03/23/2024 14:19 Report Date: 03/24/2024 [...] M.D. Signed By: 03/24/241551 DD/ [birth year] TD/TT: Health Education Coordinator: ROHITH HealthcareRadiology Study observation (narrative)NOMSelena HealthcareXR Sinuses 3 ViewsOrdered By: Radiologist Radiology on 14-67-4879QGZW Healthcare Work Phone: xr lumbar spine 2-3V*on 70-25-0241VP lumbar spine 2-3V*NormalThe [facility] Special[facility] Hospital Physician GroupCNPNon 37-24-5091WSIYSzqdaykxx (HEMTSA) RENUKA OWEN ([id number]) 1950 F Date Time Provider Department 01/06/24 TRINY MART During your visit today, we recorded the following information about you: Triny Mart RN 01/06/2024 11:46 AM Signed Pt calls to ask when her mammogram is due. Pt's record reviewed. Last Mamm done on 02/08/23 @ [facility]. 12 month f/u recommended. Order for Mamm faxed to [facility] on 06/22/23. Pt notified of the above. Advised she call [facility] to schedule. Pt verbalizes understanding and [...] 06/20/2020 Encounter Status:Closed by TRINY MART on 01/06/24NoSumma Health Barberton CampusEstimated glomerular filtration rate (GFR) non- Americanon 60-25-0374YJN/1.73 sq M.predicted among non-blacks MDRD (S/P/Bld) [Vol rate/Area]36 mL/min/{1.73_m2}Low>=60C[facility] ClinicLaboratory - Chemistry and Chemistry - challengeon 54-73-8004Racuyaf [Mass/Vol]9.7 mg/dL 8.5-10.1FMcKitrick HospitalChloride [Moles/Vol]102 mmol/L98-107 [facility] ClinicCO2 [Moles/Vol]29.7 mmol/L21.0-32.0C[facility] ClinicCreatinine [Mass/Vol]1.43 mg/dLHigh0.55-1.02C[facility] ClinicGFR/1.73 sq M.predicted MDRD (S/P/Bld) [Vol rate/Area]44 mL/min/{1.73_m2}Low>=60C[facility] ClinicGlucose [Mass/Vol]96 mg/dK80-158EpizvtytvCleveland ClinicMagnesium [Mass/Vol]2.5 mg/dLHigh 1.8-2.4FMcKitrick HospitalPotassium [Moles/Vol]4.2 mmol/L3.5-5.1 [facility] Healthodium [Moles/Vol]140 mmol/L193-440UwqqcwnziCleveland ClinicTSH Qn2.005 m[IU]/L0.358-3.740Cleveland ClinicUrea nitrogen [Mass/Vol]61.0 mg/dLHigh7.0-18.0C[facility] ClinicUrea nitrogen/Creatinine [Mass ratio]42.7 mg/mgMercy Healtherum or plasma anion gap determinationon 21-80-5391Wnmnv gap [Moles/Vol] 12.5 mmol/LFMcKitrick HospitalBasophils Auto (Bld) [#/Vol]on 94-63-2238Adnlmnkzb (Bld) [#/Vol]0.05 10*3/uL<0.11Cleveland ClinicBasophils/100 WBC Auto (Bld)on 07-08-6436Fjuajwtrd/100 WBC (Bld)0.8 % Cleveland ClinicBlood manual differential comment interpretation narrativeon 26-59-3667Igfkmt differential comment Mckay (Bld) [Interp]AutoCleveland ClinicEosinophils/100 WBC Auto (Bld)on 01-81-1655Jaavkfktksk/100 WBC (Bld)5.8 %[facility] Erythrocyte distribution width Auto (RBC) [Ratio]on 83-16-5738Rtkzfdkxvfa distribution width (RBC) [Ratio]14.9 %11.5-15.0[facility] Hematocrit Auto (Bld) [Volume fraction]on 27-26-9549Hvhbknaduh (Bld) [Volume fraction]36.0 %36.0-46.0Cleveland ClinicHemoglobin [Mass/volume] in Bloodon 02-26-4908Yxplftexot (Bld) [Mass/Vol]11.4 g/dL11.5-15.5 [facility] ClinicLaboratory - Chemistry and Chemistry - challengeon 95-94-7867Iyiurje [Mass/Vol]4.4 g/dL3.9-4.9C[facility] ClinicALP [Catalytic activity/Vol]67 U/L80-903YllprsabiCleveland ClinicALT [Catalytic activity/Vol]8 U/L7-38C[facility] ClinicAST [Catalytic activity/Vol]16 U/K12-85NemwksyfsCleveland ClinicBilirubin [Mass/Vol]0.4 mg/dL0.2-1.3FMcKitrick HospitalCalcium [Mass/Vol] 10.6 mg/dL8.5-10.2FMcKitrick HospitalChloride [Moles/Vol]99 mmol/L 97-105C[facility] ClinicCO2 [Moles/Vol]30 mmol/Q05-28KbydvibneCleveland ClinicCreatinine [Mass/Vol]1.29 mg/dL0.58-0.96C[facility] ClinicGlucose [Mass/Vol]109 mg/lI20-18UxhfllwwyCleveland ClinicComment on above:The [place] Diabetes Association (ADA) provides guidance for cutoff [...] diabetes.Reference: [employer] in Diabetes 2016, [place] Diabetes Association. Diabetes Care. 2016.39(Suppl 1).Potassium [Moles/Vol]4.8 mmol/L 3.7-5.1FMcKitrick HospitalProtein [Mass/Vol]7.3 g/dL6.3-8.0 Mercy Healthodium [Moles/Vol]138 mmol/K805-538VqlesaxetCleveland ClinicUrea nitrogen [Mass/Vol]45 mg/dL7-21C[facility] ClinicLaboratory - Hematology and Cell countson 18-84-9092Iizsnosnfmw (Bld) [#/Vol]0.37 10*3/uL<0.46Cleveland ClinicImmature granulocytes/100 WBC (Bld)0.2 %Cleveland ClinicLeukocytes [#/volume] corrected for nucleated erythrocytes in Blood by Automated counon 77-82-4306CSR corrected for nucl RBC Auto (Bld) [#/Vol]6.43 k/uL3.70-11.00 Cleveland ClinicLymphocytes Auto (Bld) [#/Vol]on 06-22-2023 Lymphocytes (Bld) [#/Vol]1.86 10*3/uL1.00-4.00[facility] Lymphocytes/100 WBC Auto (Bld)on 66-16-4231Rkfraklnlnl/100 WBC (Bld)28.9 % Cleveland ClinicMCH Auto (RBC) [Entitic mass]on 50-41-6225VYP (RBC) [Entitic mass]27.5 pg26.0-34.0Cleveland ClinicMCHC Auto (RBC) [Mass/Vol]on 82-54-9721LPQC (RBC) [Mass/Vol]31.7 g/dL30.5-36.0C[facility] ClinicMCV Auto (RBC) [Entitic vol]on 03-26-6345XQL (RBC) [Entitic vol]86.7 fL80.0-100.0C[facility] ClinicMonocytes Auto (Bld) [#/Vol]on 23-77-8100Mwdjwtlmw (Bld) [#/Vol]0.72 10*3/uL<0.87Cleveland ClinicMonocytes/100 WBC Auto (Bld)on 18-31-0630Drveljkps/100 WBC (Bld)11.2 %Cleveland ClinicNeutrophils Auto (Bld) [#/Vol]on 20-89-5827Gzuoegsxoct (Bld) [#/Vol]3.42 10*3/uL1.45-7.50Cleveland ClinicNeutrophils/100 WBC Auto (Bld)on 97-23-9637Nrrwiiyfeho/100 WBC (Bld)53.1 %C[facility] ClinicNo Panel Informationon 40-97-7327GQ 27.2922.2 U/mL<38.6FMcKitrick HospitalComment on above:The CA27.29 test was performed using the SIL4 Systemsaur XP chemiluminometric immunoassay method. Results obtained with different assay methods or kits cannot be used interchangeably.Estimated GFR (CKD-EPI)44 mL/min/1.73m???>=60C[facility] ClinicComgarden city hospital on above:Estimated Glomerular Filtration Rate (eGFR) is [...] reflect actual GFR. Immature Granulocyte # (Auto)<0.03 k/uL<0.10[facility] Nucleated RBC Auto (Bld) [#/Vol]on 35-35-9868Zwjkwlolf RBC (Bld) [#/Vol]10*3/uL <0.01Cleveland ClinicNucleated erythrocytes [Presence] in Blood by Automated counton 87-95-2820Zggtjhxkr RBC Auto Ql (Bld)0.0 /100{WBC} Cleveland ClinicPlatelet mean volume Auto (Bld) [Entitic vol]on 86-19-2844Ntnsbxll mean volume (Bld) [Entitic vol]9.2 fL9.0-12.7FMcKitrick HospitalPlatelets Auto (Bld) [#/Vol]on 22-41-2422Chshnokro (Bld) [#/Vol]286 10*3/iE570-561KoqepznpdCleveland ClinicRBC Auto (Bld) [#/Vol] on 09-95-1528IFU (Bld) [#/Vol]4.15 10*6/uL3.90-5.20Mercy Healtherum or plasma anion gap determinationon 38-52-7860Vrjcu gap [Moles/Vol]9 mmol/L9-18FMcKitrick HospitalProgress Noteson 04-22-2023 [employer] Authentication Interface Message TextEMERGENCY TRIAGE, TREAT AND TRANSPORT (ET3) DOCUMENTATION OF TELEHEALTH VISIT Date / Time: 03/06/2023599 Name: Renuka Owen : 1950 SSN: (Not on file) EMS Agency: [facility] [x] Verbal consent obtained [] [...] Disposition Reported: Same ET3 Encounter Completed by: [facility]St[facility] [employer] Alanine aminotransferase [Enzymatic activity/volume] in Serum or PlasmaOrdered By: Jared Louis on 26-34-7604DMZ [Catalytic activity/Vol]12 U/L7-52 [facility] ClinicAlbumin [Mass/volume] in Serum or Plasma by Bromocresol green (BCG) dye binding methoOrdered By: Jared Louis on 37-49-4002Hsueleq BCG dye [Mass/Vol]3.4 g/dL3.5-5.7FMcKitrick HospitalAlkaline phosphatase [Enzymatic activity/volume] in Serum or PlasmaOrdered By: Jared Louis on 13-88-3921ZXB [Catalytic activity/Vol]45 U/L34-104 Cleveland ClinicAspartate aminotransferase [Enzymatic activity/volume] in Serum or PlasmaOrdered By: Jared Louis on 54-73-8836JOM [Catalytic activity/Vol]14 U/G30-20PilnrwelsCleveland ClinicBasophils Auto (Bld) [#/Vol]Ordered By: Jared Louis on 04-16-2023 Basophils (Bld) [#/Vol]0.0 10*3/uL0.0-0.2FMcKitrick Hospital Basophils/100 WBC Auto (Bld)Ordered By: Jared Louis on 04-16-2023 Basophils/100 WBC (Bld)0.4 %.C[facility] ClinicBilirubin.total [Mass/volume] in Serum or PlasmaOrdered By: Jared Louis on 04-16-2023 Bilirubin [Mass/Vol]0.6 mg/dL0.3-1.0C[facility] ClinicCalcium [Mass/volume] in Serum or PlasmaOrdered By: Jared Louis on 04-16-2023 Calcium [Mass/Vol]9.8 mg/dL8.6-10.3FMcKitrick HospitalCarbon dioxide, total [Moles/volume] in Serum or PlasmaOrdered By: Jared Louis on 80-82-2136YT5 [Moles/Vol]32.5 mmol/L21.0-31.0C[facility] ClinicChloride [Moles/volume] in Serum or PlasmaOrdered By: Jared Louis 70-54-8556Itompoda [Moles/Vol]101 mmol/Z45-805KczielguoCleveland ClinicCreatinine [Mass/volume] in Serum or PlasmaOrdered By: Jared Louis on 02-79-8478Bqykrkvyrt [Mass/Vol]0.94 mg/dL0.60-1.20C[facility] ClinicEosinophils Auto (Bld) [#/Vol]Ordered By: Jared Louis on 20-46-0767Agngdjxrmml (Bld) [#/Vol]0.0 10*3/uL0.0-0.45Cleveland ClinicEosinophils/100 WBC Auto (Bld)Ordered By: Jared Louis on 33-30-6469Kpnoulmvsgi/100 WBC (Bld)0.3 %.C[facility] ClinicErythrocyte distribution width Auto (RBC) [Ratio]Ordered By: Jared Louis on 04-18-8434Lyhlrcvkkxb distribution width (RBC) [Ratio] 15.0 %11.9-15.3FMcKitrick HospitalGlobulin Calc (S) [Mass/Vol] Ordered By: Jared Louis on 02-78-0553Trqdwwtl (S) [Mass/Vol]2.8 g/dL [facility] ClinicGlucose [Mass/volume] in Serum or PlasmaOrdered By: Jared Louis on 17-55-7475Urrfhcv [Mass/Vol]85 mg/dB61-469BildmnaluCleveland ClinicComment on above:ADA recommended reference rangeRandom Glucose Reference Range is dependent on time and content of last meal. Glucose of more than 200 mg/dL in a nonstressed, ambulatory subject supports the diagnosisof Diabetes Mellitus.Hematocrit Auto (Bld) [Volume fraction]Ordered By: Jared Louis on 67-21-3349Ljoeqdnhpo (Bld) [Volume fraction]33.2 % 34.0-46.4FMcKitrick HospitalHemoglobin [Mass/volume] in Blood Ordered By: Jared Louis on 52-76-0756Lttdfdywer (Bld) [Mass/Vol]11.0 g/dL11.8-15.4FMcKitrick HospitalLeukocytes [#/volume] corrected for nucleated erythrocytes in Blood by Automated counOrdered By: Jared Louis on 54-10-0110MTB corrected for nucl RBC Auto (Bld) [#/Vol]9.7 10*3/uL 3.8-11.6FMcKitrick HospitalLymphocytes Auto (Bld) [#/Vol]Ordered By: Jared Louis on 35-38-9272Rqjgltgufil (Bld) [#/Vol]1.8 10*3/uL 1.00-4.8Cleveland ClinicLymphocytes/100 WBC Auto (Bld)Ordered By: Jared Louis on 22-25-0210Bvjmtweplrq/100 WBC (Bld)18.4 %.[facility] CenterH Auto (RBC) [Entitic mass]Ordered By: Jared Louis on 78-04-6529GWT (RBC) [Entitic mass]27.4 pg24.7-34.3FMcKitrick HospitalMCHC Auto (RBC) [Mass/Vol]Ordered By: Jared Louis on 02-30-6482APBP (RBC) [Mass/Vol]33.0 g/dL32.0-35.0C[facility] ClinicMCV Auto (RBC) [Entitic vol]Ordered By: Jared Louis on 69-42-2373KAE (RBC) [Entitic vol]83.2 gG44-468VdxmarysiCleveland ClinicMonocytes Auto (Bld) [#/Vol]Ordered By: Jared Louis on 24-72-4905Kljfojtfe (Bld) [#/Vol]1.4 10*3/uL0.0-0.8C[facility] ClinicMonocytes/100 WBC Auto (Bld)Ordered By: Jared Louis on 04-16-2023 Monocytes/100 WBC (Bld)13.9 %.C[facility] ClinicNeutrophils Auto (Bld) [#/Vol]Ordered By: Jared Louis on 94-86-5931Mjfewpguiud (Bld) [#/Vol]6.5 10*3/uL1.8-7.7FMcKitrick HospitalNeutrophils/100 WBC Auto (Bld)Ordered By: Jared Louis on 40-09-0777Fqomyawigoq/100 WBC (Bld)67.0 %.C[facility] ClinicNo Panel InformationOrdered By: Jared Louis on 98-69-3568Jlbecixps GFR (CKD-EPI)> 60.0 mL/MinCleveland ClinicPharmacy Creatinine Clearance (Chem47.09Cleveland ClinicNucleated erythrocytes [Presence] in Blood by Automated countOrdered By: Jared Louis on 33-46-1013Kbgkquzug RBC Auto Ql (Bld) 0.1 /100{WBC}0-0.5FMcKitrick HospitalPlatelet mean volume Auto (Bld) [Entitic vol]Ordered By: Jared Louis on 92-38-6753Jacxigee mean volume (Bld) [Entitic vol]7.7 fL6.3-10.7FMcKitrick Hospital Platelets Auto (Bld) [#/Vol]Ordered By: Jared Louis on 04-16-2023 Platelets (Bld) [#/Vol]228 10*3/tH223-118LehdyrfcrCleveland Clinic Potassium [Moles/volume] in Serum or PlasmaOrdered By: Jared Louis on 90-12-2904Fjgnshjay [Moles/Vol]3.9 mmol/L3.5-5.1FMcKitrick HospitalPrealbumin [Mass/volume] in Serum or PlasmaOrdered By: Jared Louis on 49-29-2888Unnwwwwqhw [Mass/Vol]23.4 mg/dL17.0-34.0C[facility] ClinicProtein [Mass/volume] in Serum or PlasmaOrdered By: Jared Louis on 01-44-2646Zxembxm [Mass/Vol]6.2 g/dL6.4-8.9C[facility] ClinicRBC Auto (Bld) [#/Vol]Ordered By: Jared Louis on 23-02-4282TDV (Bld) [#/Vol]3.99 10*6/uL3.60-5.00Mercy Healtherum or plasma albumin/globulin mass ratioOrdered By: Jared Louis on 87-59-5640Dzycbsl/Globulin [Mass ratio]1.2 {ratio}Mercy Healtherum or plasma anion gap determinationOrdered By: Jared Louis on 16-31-9749Jpdan gap [Moles/Vol]12.4 mmol/L6.0-15.0 Mercy Healthodium [Moles/volume] in Serum or PlasmaOrdered By: Jared Louis on 78-25-1509Ariqoe [Moles/Vol]142 mmol/T498-785 [facility] ClinicUrea nitrogen [Mass/volume] in Serum or Plasma Ordered By: Jared Louis on 65-62-0462Ecnu nitrogen [Mass/Vol]34 mg/dL 7-C[facility] ClinicWBC Auto (Bld) [#/Vol]Ordered By: Jared Louis on 63-92-2877OEQ (Bld) [#/Vol]9.7 10*3/uL3.8-11.6FMcKitrick HospitalBasophils Auto (Bld) [#/Vol]Ordered By: Devin Moreau on 03-26-2023 Basophils (Bld) [#/Vol]0.1 10*3/uL0.0-0.2FMcKitrick Hospital Basophils/100 WBC Auto (Bld)Ordered By: Devin Moreau on 83-86-4447Pidccakly/100 WBC (Bld)1.0 %.C[facility] ClinicCalcium [Mass/volume] in Serum or PlasmaOrdered By: Devin Moreau on 64-24-7299Dranpye [Mass/Vol]9.4 mg/dL8.6-10.3 [facility] ClinicCarbon dioxide, total [Moles/volume] in Serum or PlasmaOrdered By: Devin Moreau on 97-32-4951TY1 [Moles/Vol]30.1 mmol/L21.0-31.0 [facility] ClinicChloride [Moles/volume] in Serum or Plasma Ordered By: Devin Moreau on 64-80-3154Vqoysnoi [Moles/Vol]102 mmol/L98-107 [facility] ClinicCreatinine [Mass/volume] in Serum or Plasma Ordered By: Devin Moreau on 30-50-8609Cbgrywnwxu [Mass/Vol]1.19 mg/dL0.60-1.20 [facility] ClinicEosinophils Auto (Bld) [#/Vol]Ordered By: Devin Moreau on 46-12-5835Ikckeclkdeg (Bld) [#/Vol]0.3 10*3/uL0.0-0.45C[facility] ClinicEosinophils/100 WBC Auto (Bld)Ordered By: Devin Moreau on 30-92-6918Fqjwqjbzkoa/100 WBC (Bld)4.7 %.[facility] Erythrocyte distribution width Auto (RBC) [Ratio]Ordered By: Devin Moreau on 29-48-7146Zhunddajvjv distribution width (RBC) [Ratio]15.2 %11.9-15.3FMcKitrick HospitalGlucose [Mass/volume] in Serum or PlasmaOrdered By: Devin Moreau on 76-05-1855Nbxxrzw [Mass/Vol]95 mg/aP37-032BbmiqovcfCleveland ClinicComment on above:ADA recommended reference rangeRandom Glucose Reference Range is dependent on time and content of last meal. Glucose of more than 200 mg/dL in a nonstressed, ambulatory subject supports the diagnosisof Diabetes Mellitus.Hematocrit Auto (Bld) [Volume fraction]Ordered By: Devin Moreau on 12-00-7138Dixljyqfvt (Bld) [Volume fraction]37.7 %34.0-46.4FMcKitrick HospitalHemoglobin [Mass/volume] in BloodOrdered By: Devin Moreau on 20-25-5180Hdjgdiksci (Bld) [Mass/Vol]12.2 g/dL11.8-15.4FMcKitrick HospitalLeukocytes [#/volume] corrected for nucleated erythrocytes in Blood by Automated counOrdered By: Devin Moreau on 82-05-9618FFZ corrected for nucl RBC Auto (Bld) [#/Vol]6.0 10*3/uL3.8-11.6FMcKitrick Hospital Lymphocytes Auto (Bld) [#/Vol]Ordered By: Devin Moreau on 69-71-7647Xerjytrnzpa (Bld) [#/Vol]1.7 10*3/uL1.00-4.8C[facility] ClinicLymphocytes/100 WBC Auto (Bld)Ordered By: Devin Moreau on 91-82-7904Nrivnuujoll/100 WBC (Bld)28.9 %.C[facility] ClinicMCH Auto (RBC) [Entitic mass]Ordered By: Devin Moreau on 65-69-9313PUZ (RBC) [Entitic mass]27.4 pg24.7-34.3FMcKitrick HospitalMCHC Auto (RBC) [Mass/Vol]Ordered By: Devin Moreau on 43-69-3762FRVK (RBC) [Mass/Vol]32.4 g/dL32.0-35.0C[facility] ClinicMCV Auto (RBC) [Entitic vol]Ordered By: Devin Moreau on 34-83-7570NAT (RBC) [Entitic vol]84.5 rQ71-219ApxcdvezvCleveland ClinicMonocytes Auto (Bld) [#/Vol]Ordered By: Devin Moreau on 08-47-7838Rzrbiswlw (Bld) [#/Vol]0.6 10*3/uL 0.0-0.8C[facility] ClinicMonocytes/100 WBC Auto (Bld)Ordered By: Devin Moreau on 83-72-6622Jrkzfgsna/100 WBC (Bld)9.8 %.C[facility] ClinicNeutrophils Auto (Bld) [#/Vol]Ordered By: Devin Moreau on 03-26-2023 Neutrophils (Bld) [#/Vol]3.3 10*3/uL1.8-7.7FMcKitrick Hospital Neutrophils/100 WBC Auto (Bld)Ordered By: Devin Moreau on 03-26-2023 Neutrophils/100 WBC (Bld)55.6 %.[facility] ClinicNo Panel InformationOrdered By: Devin Moreau on 30-76-8056Ueuhwkpqk GFR (CKD-EPI)48.279 mL/MinCleveland ClinicPharmacy Creatinine Clearance (ChemN/A Cleveland ClinicNucleated erythrocytes [Presence] in Blood by Automated countOrdered By: Devin Moreau on 42-18-0967Jjpadfdlf RBC Auto Ql (Bld) 0.1 /100{WBC}0-0.5FMcKitrick HospitalPlatelet mean volume Auto (Bld) [Entitic vol]Ordered By: Devin Moreau on 95-09-1935Gjqdhxdk mean volume (Bld) [Entitic vol]8.4 fL6.3-10.7FMcKitrick HospitalPlatelets Auto (Bld) [#/Vol]Ordered By: Devin Moreau on 08-72-0648Papauuvno (Bld) [#/Vol]242 10*3/kI161-547OknopsxxjCleveland ClinicPotassium [Moles/volume] in Serum or PlasmaOrdered By: Devin Moreau on 00-02-5686Ypieubpzt [Moles/Vol]4.4 mmol/L 3.5-5.1FMcKitrick HospitalRBC Auto (Bld) [#/Vol]Ordered By: Devin Moreau on 40-60-5238WRJ (Bld) [#/Vol]4.46 10*6/uL3.60-5.00Mercy Healtherum or plasma anion gap determinationOrdered By: Devin Moreau on 31-35-5254Youcs gap [Moles/Vol]12.3 mmol/L6.0-15.0Mercy Healthodium [Moles/volume] in Serum or PlasmaOrdered By: Devin Moreau on 14-93-8432Ilehib [Moles/Vol]140 mmol/A383-059AmttorsljCleveland Clinic Urea nitrogen [Mass/volume] in Serum or PlasmaOrdered By: Devin Moreau on 55-59-5229Lsjg nitrogen [Mass/Vol]38 mg/dL7-25[facility] WBC Auto (Bld) [#/Vol]Ordered By: Devin Moreau on 17-78-6161IAF (Bld) [#/Vol]6.0 10*3/uL3.8-11.6FMcKitrick HospitalHuman papilloma virus 16+18+31+33+35+39+45+51+52+56+58+59+66+68 DNA [Presence] in CerOrdered By: Radha Moreau on 92-13-4994TFJ 16+18+31+33+35+39+45+51+52+56+58+59+66+68 DNA Probe+sig amp Ql (Cvx)NegativeNegativeFirelands Regional Medical CenterComment on above:This nucleic acid amplification test detects fourteen high-risk HPV types (16,18,31,33,35,39,45,51,52,56,58,59,66,68)without differentiation.Performed at: - [facility] [place], [place] [id number] Director: Estella Broderick MD, Phone: [phone] at: = - [facility] [address]All[address] [place], [place] [id number] Director: Estella Broderick MD, Phone: [phone] Panel InformationOrdered By: Radha Moreau on 33-16-6040ER Pap w/Ct-Ng & HPV Rflx (Off-SiteNote.Cleveland ClinicComment on above:TESTS RESULT FLAG UNITS REF RANGE LAB Clinician Provided Cytology Information Source.............Vagina No. of containers..01 ThinPrep VialDIAGNOSIS: 01 NEGATIVE FOR INTRAEPITHELIAL LESION OR MALIGNANCY.Specimen adequacy: 01 Satisfactory for evaluation. Endocervical component may not be distinguished in cases of atrophy.Performed by: Rolly Castellano, Flag Maker (ASCP). 01Note: Note 01 The Pap smear [...] High <-Panic Low,>- Panic High,A-Abnormal,AA-Critical Abnormal Performed at:[facility] [id number] Estella Broderick MD, Iactovuzxg - DIPSTICKon 94-95-9137Bhilbluald (U) clearJoystickers [place] Other Bilirubin Ql (U)[facility] [place] Other Color (U)yellowJoystickers [place] Other Glucose Ql (U)[facility] [place] Other Hemoglobin Ql (U)[facility] [place] Other Ketones Ql (U)[facility] [place] Other Leukocyte esterase Test strip Ql (U)traceHampton Billeo Other Nitrite Ql (U)[facility] ClevelandJoystickers [place] Other pH (U)6.0 [pH][place] Other Protein Ql (U)+Attendify Other Specific gravity (U) [Rel density]1.010Ham[place] Other Urobilinogen (U) [Mass/Vol]off chartHampton Billeo Other Urinalysis - DIPSTICKHampton [place]illeo Other Creatinine (Bld) [Mass/Vol]Ordered By: Devin Moreau on 19-60-8799Ahssotawup [Mass/Vol]0.9 mg/dL0.6-1.3FMcKitrick Hospital Comment on above:ER/ESD physician is notified/shown all ISTAT results.Critical values may be confirmed by laboratorytesting ifdeemed necessary by ER attending doctor.No Panel InformationOrdered By: Devin Moreau on 16-52-9899Ebbhsqm Estimated GFR (eGFR)> 60.0Cleveland ClinicXR dexa axial skeletonon 54-61-9808XU dexa axial skeletonNorth Billeo Other echocardiogramon 94-65-9951NsopihbdelaqndlmLax[address], [address] [place] [address] TRANSTHORACIC ECHOCARDIOGRAM REPORT Patient Name: RENUKA Dey Reading Physician: [id number] Bryce Hendrickson MD [facility] Study Date: 01/25/2023 Referring BRYCE HENDRICKSON Physician: MRN/PID: [id number] PCP: Sylvester Jacob Accession/Order#: [id number] [facility] Location: Date of : 1950 Fellow: Gender: F Nurse: Admit Date: Breeding Manager: Светлана Mantilla RD, T Height: 154.94 cm CC Report to: Weight: 71.22 kg Study Type: Echocardiogram BSA: 1.70 m2 Blood Pressure: 120 /76 mmHg Diagnosis/ICD: I34.0-Nonrheumatic mitral (valve) insufficiency Indication: Abnormal EKG-LBBB, Chest Pain, HTN, Overweight Procedure/CPT: Echo Complete w Full Doppler-[id number] Study Detail: The following Echo studies were [...] 0.7 m/s (0.6-0.9m/s) PV Max P.8 mmHg [id number] [facility]rickson MD, [facility] Electronically signed on 01/26/2023 at 12:50:05 PM Final NormalBanner Fort Collins Medical CenterPROF CHEM 8 (BAS METB)on 08-18-2022 Anion gap [Moles/Vol]9.9 mmol/LNormalThe [facility] OhioComment on above: Performed By: #### HSTROPN #### [facility] [address] [address] [address] Isabell PeñaCalcium [Mass/Vol]9.3 mg/dLNormal8.5-10.1[facility] Comment on above:Performed By: #### HSTROPN #### [facility] [address] [address] [address] Isabell PeñaChloride [Moles/Vol]103 mmol/UNupmjl19-805Bds [facility] Comment on above:Performed By: #### HSTROPN #### [facility] [address] [address] [address] Isabell PeñaCO2 [Moles/Vol]31.7 mmol/HFbrfij14.0-32.0The [facility] Comment on above:Performed By: #### HSTROPN #### [facility] [address] [place] [address] Dr. Isabell PeñaCreatinine [Mass/Vol]0.98 mg/dLNormal0.55-1.02Doctors HospitalComment on above:Performed By: #### HSTROPN #### [facility] [address] [place] [address] Dr. Isabell PerezGFR-AF SOUTH AFRICAN>60Normal>=60The [facility] OhioComment on above:Performed By: #### HSTROPN #### [facility] [address] [place] [address] Dr. Isabell PerezGFR-NON AF TSQAIVHC73 mL/min/1.95b7Qnkwsbympe low>=60The [facility] OhioComment on above:Performed By: #### HSTROPN #### [facility] [address] [place] [address] Dr. Isabell PeñaGlucose [Mass/Vol]111 mg/dLCritically xiou65-512Dfi [facility] OhioComment on above:Performed By: #### HSTROPN #### [facility] [address] [place] [address] Dr. Isabell PeñaPotassium [Moles/Vol]3.6 mmol/LNormal3.5-5.1The [facility] Comment on above:Performed By: #### HSTROPN #### [facility] [address] [place] [address] Dr. Isabell PeñaSodium [Moles/Vol]141 mmol/HApvnyr905-970VdyDoctors Hospital Comment on above:Performed By: #### HSTROPN #### [facility] [address] [place] [address] Dr. Isabell PeñaUrea nitrogen [Mass/Vol]20.0 mg/dLCritically high7.0-18.0Doctors HospitalComment on above:Performed By: #### HSTROPN #### [facility] [id number] Isabell Barrera nitrogen/Creatinine [Mass ratio]20.4 mg/mgNoBluffton HospitalComment on above:Performed By: #### HSTROPN #### [facility] [id number] Isabell Matthews CARDIAC STRESS/REST INJECTIONon 89-42-2655UIF CARDIAC STRESS/REST INJECTIONMRN: [id number] Patient Name: RENUKA OWEN STUDY: MYOCARDIAL PERFUSION STRESS TEST WITH LEXISCAN Performing facility: [facility], [address] [place] [address], [address] Provider: Bryce Hendrickson MD, FACC PCP: Dr. Roseanna Jacob Supervising provider: Bryce Hendrickson MD, FACC INDICATION: Chest Pain; LBBB HISTORY: Gender: F; Age: 71 y/o ; Height: 0 cm; Weight: 0 kg. Abnormal EKG; HTN; Chest Pain; Denies smoking. COMPARISON: No comparison. ACCESSION NUMBER(S): [id number]; [id number]; [id number] ORDERING CLINICIAN: BRYCE HENDRICKSON TECHNIQUE: ONE DAY [...] for comparison. Electronically signed by: BRYCE HENDRICKSON MDMagee Rehabilitation HospitalNo Panel Informationon 70-71-5829XemunxOV-[facility] DO Work Phone: Urinalysis - DIPSTICKon 78-14-5771Tenbeimxul (U)cloudy Attendify Other Bilirubin Ql (U)smallZambikes Mal[place] Other Color (U)yellowJoystickers [place] Other Glucose Ql (U)NegativeZambikes [place] Other Hemoglobin Ql (U)largeZambikes [place] Other Ketones Ql (U)traceZambikes [place] Other Leukocyte esterase Test strip Ql (U)traceAttendify Other Nitrite Ql (U)NegativeZambikes [place] Other pH (U)8.5 [pH]Attendify Other Protein Ql (U)traceAttendify Other Specific gravity (U) [Rel density]1.010Ham[place] Other Urobilinogen (U) [Mass/Vol]0.2 mg/dLNoRkylin Other Urinalysis - DIPSTICKAttendify Other cbc W Auto Differential panel (Bld)on 05-19-2022 Basophils (Bld) [#/Vol]0.09 10*3/uL<0.11 k/uLSelect Medical Specialty Hospital - CantonBasophils/100 WBC (Bld)0.8 %[facility] - CantonDifferential cell count method Nom (Bld)AutoCleveland Lake Region HospitalEosinophils (Bld) [#/Vol]0.26 10*3/uL<0.46 k/uLSelect Medical Specialty Hospital - Canton Eosinophils/100 WBC (Bld)2.3 %[facility] Hospital - CantonErythrocyte distribution width (RBC) [Ratio]16.4 %High11.5 - 15.0 %[facility] - CantonHematocrit (Bld) [Volume fraction]36.6 %36.0 - 46.0 %[facility] - CantonHemoglobin (Bld) [Mass/Vol]11.6 g/dL 11.5 - 15.5 g/dLSelect Medical Specialty Hospital - CantonImmature granulocytes (Bld) [#/Vol]0.05 10*3/uL <0.10 k/uLSelect Medical Specialty Hospital - CantonImmature granulocytes/100 WBC (Bld)0.4 %[facility] - CantonLymphocytes (Bld) [#/Vol]1.87 10*3/uL1.00 - 4.00 k/uLSelect Medical Specialty Hospital - [facility]on Lymphocytes/100 WBC (Bld)16.3 %[facility], BeachwoodH (RBC) [Entitic mass]28.0 pg 26.0 - 34.0 pgCMedina HospitalHC (RBC) [Mass/Vol]31.7 g/dL30.5 - 36.0 g/dL [facility] Hospital, BeachwoodV (RBC) [Entitic vol]88.4 fL80.0 - 100.0 fLCThe [facility] Monocytes (Bld) [#/Vol]1.17 10*3/uLHigh<0.87 k/uLSelect Medical Specialty Hospital - CantonMonocytes/100 WBC (Bld)10.2 %[facility] CantonNeutrophils (Bld) [#/Vol]8.04 10*3/uLHigh1.45 - 7.50 k/uLSelect Medical Specialty Hospital - CantonNeutrophils/100 WBC (Bld)70.0 %[facility] Nucleated RBC (Bld) [#/Vol]<0.01 k/uLSelect Medical Specialty Hospital - CantonNucleated RBC/100 WBC (Bld) [Ratio]0.0 /100 WBCSelect Medical Specialty Hospital - CantonPlatelet mean volume (Bld) [Entitic vol]9.4 fL9.0 - 12.7 fLCleveland ClinicPlatelets (Bld) [#/Vol]389 10*3/uL150 - 400 k/uL [facility] CantonRBC (Bld) [#/Vol]4.14 10*6/uL3.90 - 5.20 m/uLSelect Medical Specialty Hospital - CantonWBC (Bld) [#/Vol]11.48 10*3/uLHigh3.70 - 11.00 k/uLSelect Medical Specialty Hospital - CantonComprehensive metabolic 2000 panelon 25-83-2470Kaaojhe [Mass/Vol]4.1 g/dL3.9 - 4.9 g/dL [facility] HospitalP [Catalytic activity/Vol]81 U/L34 - 123 U/LCleveland Lake Region Hospital ALT [Catalytic activity/Vol]9 U/L7 - 38 U/LCleveland ClinicAnion gap [Moles/Vol] 9 mmol/L9 - 18 mmol/LCleveland ClinicAST [Catalytic activity/Vol]18 U/L13 - 35 U/LCleveland ClinicBilirubin [Mass/Vol]0.5 mg/dL0.2 - 1.3 mg/dLSelect Medical Specialty Hospital [facility] Calcium [Mass/Vol]9.9 mg/dL8.5 - 10.2 mg/dLSelect Medical Specialty Hospital - CantonChloride [Moles/Vol] 99 mmol/L97 - 105 mmol/LCleveland ClinicCO2 [Moles/Vol]29 mmol/L22 - 30 mmol/L [facility] CantonCreatinine [Mass/Vol]0.78 mg/dL0.58 - 0.96 mg/dLSelect Medical Specialty Hospital - [facility]on Estimated Glomerular Filtration Rate81 mL/min/1.73m>=60 mL/min/1.73mCleveland ClinicGlucose [Mass/Vol]118 mg/qIJuei59 - 99 mg/dLSelect Medical Specialty Hospital - CantonPotassium [Moles/Vol]3.6 mmol/LLow3.7 - 5.1 mmol/LCleveland ClinicProtein [Mass/Vol]6.9 g/dL6.3 - 8.0 g/dLHillsboro ClinicSodium [Moles/Vol]137 mmol/L136 - 144 mmol/L [facility] - CantonUrea nitrogen [Mass/Vol]19 mg/dL7 - 21 mg/dLSelect Medical Specialty Hospital - [facility]on Office Visit (Cardiology)on 38-48-5958Lbsiab-up visitDiagnoses/Problems Assessed Essential hypertension (401.9) (I10) LBBB [...] Cardiac Stress/Rest Nuclear Med Order; Status:Active; Requested for:[id number]; Radiologist to Determine Optimal Study : Y [...] problems noted below but recently was at [facility] for [facility] pain and had ruled out [...] chest pain requiring an ER visit to [facility]. Assessment was negative in the ER. Nuclear stress test is recommended and will be scheduled Bryce Hendrickson MD, [facility] Surgical History Problems History of Appendectomy [...] Recorded: 12May2022 11:27AM Heart Rate72, R Radial Hapxhvzl860, RUE, Sitting Sdnpelkgo30, RUE, Sitting Height5 ft 1 in Oypimx816 lb BMI Imfujmbgzu39.67 kg/m2 BSA Calculated1.7 Tobacco Useb) No PH (more content not included)...NormalUH TouchworksTobacco Screening.on 07-88-4254Zdgxn depression screening assessmentJohn E. Fogarty Memorial Hospital [employer] DO Work Phone: Fall risk assessmenta) No falls within the last year [facility] [employer] DO Work Phone: Tobacco use status CPHSb) [facility] [employer] DO Work Phone: CTA CHEST WO W CONon 67-44-4560VBY CHEST WO W CON EXAMINATION: CTA CHEST [...] Electronically authenticated by: EMORY WILSON Date: 2022-05-11 00:34NoBluffton HospitalCovid-19 PCR (CVDTBH)on 56-58-8659UPSL-CoV-2 (COVID-19) RNA JANET+probe Ql (Unsp spec)Not detectedNormalNOT DETECTEDThe [facility] Comment on above:Result Comment: When diagnostic testing [...] for this test is supported by the Pitch Worker of Health and Human Service's declaration [...] longer be used).Performed By: #### LACT #### [facility] [address] [address] [address] Isabell Osuna M/2D COMPLETEon 40-06-9527CMVCISHLWC M/2D COMPLETE Patient: RENUKA OWEN Exam Date: 05/11/2022 : 1950 Gender:F Ordering : VIVI CHAMBERS . Admission #: [id number] Family : DR SYLVESTER JACOB DJake Order #: [id number] CLICK HERE TO VIEW EXAM ECHOCARDIOGRAM REPORT [...] by: Kun Kent M.D. on 05/14/2022 at 10:30[facility] Hospitalon 42-10-6393Gneloufcs [Moles/Vol]3.5 mmol/LNormal3.5-5.1[facility] on above:Performed By: #### K #### [facility] [address] [place] [address] Dr. Isabell Longoria, [facility] SENSITIVITY 58-76-3713PMRQUS22.0 pg/mLNormal 4.0-51.3TTriHealth on above:Result Comment: CUT-OFF POINTS HAVE BEEN ESTABLISHED BASED ON THE FOURTH UNIVERSAL DEFINITIONS OF MYOCARDIAL INFARCTION. THE UPPER REFERENCE LIMIT (URL) OF TROPONIN, DEFINED THE 99TH PERCENTILE OF cTnI DISTRIBUTION IN A REFERENCE POPULATION, HAS BEEN CONFIRMED THE DECISION THRESHOLD FOR UT DIAGNOSIS.Performed By: #### HSTROPN #### [facility] [address] [place] [address] Dr. Isabell Mackenzie15.3 pg/mLNormal4.0-51.3TTriHealth on above:Result Comment: CUT-OFF POINTS HAVE BEEN ESTABLISHED BASED ON THE FOURTH UNIVERSAL DEFINITIONS OF MYOCARDIAL INFARCTION. THE UPPER REFERENCE LIMIT (URL) OF TROPONIN, DEFINED THE 99TH PERCENTILE OF cTnI DISTRIBUTION IN A REFERENCE POPULATION, HAS BEEN CONFIRMED THE DECISION THRESHOLD FOR UT DIAGNOSIS.Performed By: #### HSTROPN #### [facility] [address] [place] [address] Dr. Isabell HollowayTROP13.2 pg/mLNormal4.0-51.3TCincinnati Children's Hospital Medical CenterComment on above:Result Comment: CUT-OFF POINTS HAVE BEEN ESTABLISHED BASED ON THE FOURTH UNIVERSAL DEFINITIONS OF MYOCARDIAL INFARCTION. THE UPPER REFERENCE LIMIT (URL) OF TROPONIN, DEFINED THE 99TH PERCENTILE OF cTnI DISTRIBUTION IN A REFERENCE POPULATION, HAS BEEN CONFIRMED THE DECISION THRESHOLD FOR UT DIAGNOSIS.Performed By: #### HSTROPN #### [facility] [address] [place] [address] Dr. Isabell Mendez 82-89-6738Tzbrrwepjlq peptide B (Bld) [Mass/Vol]663.0 pg/mL Normal<=900.0The [facility] OhioComment on above:Performed By: #### BNP, CMP, HSTROPN #### [facility] [address] [place] [address] Dr. Isabell Munoz AUTO DIFFon 86-07-2320EQBV #0.1 103/ulNormal0.0-0.1Doctors HospitalComment on above:Performed By: #### HSTROPN #### [facility] [address] [place] [address] Dr. Isabell Arangosophils/100 WBC (Bld)0.4 %Normal0.2-2.0[facility] Comment on above:Performed By: #### HSTROPN #### [facility] [address] [place] [address] Dr. Isabell Mayorga #0.2 103/ulNormal0.0-0.7The [facility] OhioComment on above: Performed By: #### HSTROPN #### [facility] [address] [place] [address] Dr. Isabell Perezosinophils/100 WBC (Bld)1.4 %Normal0.9-7.0The [facility] Comment on above:Performed By: #### HSTROPN #### [facility] [address] [place] [address] Dr. Isabell Perezrythrocyte distribution width (RBC) [Ratio]15.7 %Critically high 11.0-15.0The [facility] OhioComment on above:Performed By: #### HSTROPN #### [facility] [address] [place] [address] Dr. Isabell Osorioatocrit (Bld) [Volume fraction]32.9 %Critically low36.0-48.0 The [facility] OhioComment on above:Performed By: #### HSTROPN #### [facility] [address] [place] [address] Dr. Isabell PeñaHemoglobin (Bld) [Mass/Vol]11.4 g/dLCritically low12.0-16.0Doctors HospitalComment on above:Performed By: #### HSTROPN #### [facility] [address] [place] [address] Dr. Isabell Driscoll #0.06 10e3/ulCritically high0.00-0.03The [facility] Comment on above:Performed By: #### HSTROPN #### [facility] [address] [place] [address] Dr. Isabell Driscoll %0.5 %Normal0.0-0.5The [facility] OhioComment on above: Performed By: #### HSTROPN #### [facility] [address] [place] [address] Dr. Isabell Stein #1.6 103/ulNormal1.2-3.8The [facility] OhioComment on above:Performed By: #### HSTROPN #### [facility] [address] [place] [address] Dr. Isabell Roberthocytes/100 WBC (Bld)13.7 %Critically low20.5-60.0Doctors HospitalComment on above:Performed By: #### HSTROPN #### [facility] [address] [place] [address] Dr. Isabell DempseyUAL DIFF REQNONormalThe [facility] OhioComment on above: Performed By: #### HSTROPN #### [facility] [address] [place] [address] Dr. Isabell Juárez (RBC) [Entitic mass]28.3 swBigzxd81.7-34.0The [facility] OhioComment on above:Performed By: #### HSTROPN #### [facility] [address] [place] [address] Dr. Isabell GardnerHC (RBC) [Mass/Vol]34.7 g/pNUahgob65.9-35.2The [facility] OhioComment on above:Performed By: #### HSTROPN #### [facility] [address] [place] [address] Dr. Isabell GardnerV (RBC) [Entitic vol]81.6 dXDasncn95.0-99.0The [facility] OhioComment on above:Performed By: #### HSTROPN #### [facility] [address] [place] [address] Dr. Isabell Gonzalez #1.2 103/ulCritically high0.3-0.8ThFayette County Memorial Hospital Comment on above:Performed By: #### HSTROPN #### [facility] [address] [place] [address] Dr. Isabell Grandaocytes/100 WBC (Bld)10.7 %Normal1.7-12.0[facility] Comment on above:Performed By: #### HSTROPN #### [facility] [address] [place] [address] Dr. Isabell Malloy #8.3 103/ulCritically high1.4-6.5The [facility] Comment on above:Performed By: #### HSTROPN #### [facility] [address] [place] [address] Dr. Isabell Simmonsutrophils/100 WBC (Bld)73.3 %Ehvvtl76.0-75.0The [facility] OhioComment on above:Performed By: #### HSTROPN #### [facility] [address] [place] [address] Dr. Isabell Butterfield mean volume (Bld) [Entitic vol]8.4 fLCritically low 9.5-13.5The Vanesa HospitalComment on above:Performed By: #### HSTROPN #### [facility] [address] [place] [address] Dr. Isabell PeñaPLT380 103/kjQbhcec865-986Axx [facility] on above: Performed By: #### HSTROPN #### [facility] [address] [place] [address] Dr. Isabell PeñaRBC4.03 106/ulCritically low4.20-5.40The [facility] on above:Performed By: #### HSTROPN #### [facility] [address] [place] [address] Dr. Isabell PeñaWBC11.4 103/ulCritically high4.0-11.0The [facility] on above:Performed By: #### HSTROPN #### [facility] [address] [place] [address] Dr. Isabell PeralesDIMERon 50-25-0874B-DIMER2.39 mg/L FEUCritically high<=0.59The [facility] on above:Performed By: #### DDIM #### [facility] [address] [place] [address] Dr. Isabell Ruiz COMMENTSSEE [facility] on above:Result Comment: Increases in D-Dimer [...] generalized hospitalization. Performed By: #### DDIM #### [facility] [address] [place] [address] Dr. Isabell PeñaPROJonel 14(COMP METB)on 50-32-9712Uupmaox [Mass/Vol]3.4 g/dLNormal 3.4-5.0The [facility] on above:Performed By: #### BNP, CMP, HSTROPN #### [facility] [address] [place] [address] Dr. Isabell PeñaAlbumin/Globulin [Mass ratio]1.1 {ratio}NormalThe [facility] OhioComment on above:Performed By: #### BNP, CMP, HSTROPN #### [facility] [address] [place] [address] Dr. Isabell Tse [Catalytic activity/Vol]99 U/BImndjy74-257Inh [facility] OhioComment on above:Performed By: #### BNP, CMP, HSTROPN #### [facility] [address] [place] [address] Dr. Isabell Barnett [Catalytic activity/Vol]15 U/HIjdjvq63-00Feo [facility] OhioComment on above:Performed By: #### BNP, CMP, HSTROPN #### [facility] [address] [place] [address] Dr. Isabell Bunch gap [Moles/Vol]12.0 mmol/LNormalThe [facility] Comment on above:Performed By: #### BNP, CMP, HSTROPN #### [facility] [address] [place] [address] Dr. Isabell Lagunas [Catalytic activity/Vol]20 U/LBcsufe78-95Dob [facility] OhioComment on above:Performed By: #### BNP, CMP, HSTROPN #### [facility] [address] [place] [address] Dr. Isabell PeñaBilirubin [Mass/Vol]0.4 mg/dLNormal0.2-1.0The [facility] Comment on above:Performed By: #### BNP, CMP, HSTROPN #### [facility] [address] [place] [address] Dr. Isabell PeñaCalcium [Mass/Vol]8.6 mg/dLNormal8.5-10.1[facility] Comment on above:Performed By: #### BNP, CMP, HSTROPN #### [facility] [address] [place] [address] Dr. Isabell PeñaChloride [Moles/Vol]99 mmol/RQzbqnb52-460Zyh [facility] Comment on above:Performed By: #### BNP, CMP, HSTROPN #### [facility] [address] [address] [address] Isabell PeñaCO2 [Moles/Vol]32.2 mmol/LCritically high21.0-32.0The [facility] OhioComment on above:Performed By: #### BNP, CMP, HSTROPN #### [facility] [address] [address] [address] Isabell PeñaCreatinine [Mass/Vol]0.86 mg/dLNormal0.55-1.02The [facility] OhioComment on above:Performed By: #### BNP, CMP, HSTROPN #### [facility] [address] [address] [address] Whyte ChangEGFR-AF SOUTH AFRICAN>60Normal>=60The [facility] Southeast OhioComment on above:Performed By: #### BNP, CMP, HSTROPN #### [facility] [address] [address] [address] Isabell PerezGFR-NON AF SOUTH AFRICAN>60Normal>=60The [facility] OhioComment on above:Performed By: #### BNP, CMP, HSTROPN #### [facility] [address] [address] [address] Isabell PeñaGlobulin (S) [Mass/Vol]3.2 g/dLNormalThe [facility] OhioComment on above:Performed By: #### BNP, CMP, HSTROPN #### [facility] [address] [address] [address] Isabell PeñaGlucose [Mass/Vol]111 mg/dLCritically ephd93-286Jcq [facility] OhioComment on above:Performed By: #### BNP, CMP, HSTROPN #### [facility] [address] [address] [address] Isabell PeñaPotassium [Moles/Vol]3.2 mmol/LCritically low3.5-5.1The [facility] OhioComment on above:Performed By: #### BNP, CMP, HSTROPN #### [facility] [address] [place] [address] Dr. Isabell PeñaProtein [Mass/Vol]6.6 g/dLNormal6.4-8.2[facility] Comment on above:Performed By: #### BNP, CMP, HSTROPN #### [facility] [address] [place] [address] Dr. Isabell PeñaSodium [Moles/Vol]140 mmol/TTqxawo210-768Wgy [facility] Comment on above:Performed By: #### BNP, CMP, HSTROPN #### [facility] [address] [place] [address] Dr. Isabell Barrera nitrogen [Mass/Vol]22.0 mg/dLCritically high7.0-18.0The [facility] OhioComment on above:Performed By: #### BNP, CMP, HSTROPN #### [facility] [address] [place] [address] Dr. Isabell Barrera nitrogen/Creatinine [Mass ratio]25.6 mg/mgNormalThe [facility] OhioComment on above:Performed By: #### BNP, CMP, HSTROPN #### [facility] [address] [place] [address] Dr. Isabell Longoria, HIGH SENSITIVITYon 32-42-6873DWTYKP5.6 pg/mLNormal 4.0-51.3The [facility] OhioComment on above:Result Comment: CUT-OFF POINTS HAVE BEEN ESTABLISHED BASED ON THE FOURTH UNIVERSAL DEFINITIONS OF MYOCARDIAL INFARCTION. THE UPPER REFERENCE LIMIT (URL) OF TROPONIN, DEFINED THE 99TH PERCENTILE OF cTnI DISTRIBUTION IN A REFERENCE POPULATION, HAS BEEN CONFIRMED THE DECISION THRESHOLD FOR [place] DIAGNOSIS.Performed By: #### BNP, CMP, HSTROPN #### [facility] [address] [place] [address] Dr. Isabell PeñaCULTURE URINEon 01-86-2861GUBWEVY URINEIsolate 1 Pseudomonas aeruginosa 10,000 cfu/mL of ORGANISM 1 Pseudomonas aeruginosa ANTIBIOTIC M.I.C RX STATUS Piperacillin/Tazobactam <=4 S F Ceftazidime 4 S F Imipenem 2 S F Amikacin <=2 S F Gentamicin <=1 S F Tobramycin <=1 S F Ciprofloxacin <=0.25 S F Levofloxacin 0.25 S FNormalThe [facility] OhioComment on above:Performed By: #### HSTROPN #### [facility] [address] [place] [address] Dr. Isabell Munoz AUTO DIFFon 83-73-3639PLAU #0.0 103/ulNormal0.0-0.1The [facility] OhioComment on above:Performed By: #### HSTROPN #### [facility] [address] [place] [address] Dr. Isabell PeñaBasophils/100 WBC (Bld)0.2 %Normal0.2-2.0The [facility] Comment on above:Performed By: #### HSTROPN #### [facility] [address] [place] [address] Dr. Isabell Mayorga #0.1 103/ulNormal0.0-0.7The [facility] OhioComment on above: Performed By: #### HSTROPN #### [facility] [address] [place] [address] Dr. Isabell Perezosinophils/100 WBC (Bld)0.3 %Critically low0.9-7.0The [facility] OhioComment on above:Performed By: #### HSTROPN #### [facility] [address] [place] [address] Dr. Isabell Perezrythrocyte distribution width (RBC) [Ratio]15.4 %Critically high 11.0-15.0The [facility] OhioComment on above:Performed By: #### HSTROPN #### [facility] [address] [place] [address] Dr. Isabell PeñaHematocrit (Bld) [Volume fraction]42.4 %Ncaqmf36.0-48.0The [facility] OhioComment on above:Performed By: #### HSTROPN #### [facility] [address] [address] [address] Isabell PeñaHemoglobin (Bld) [Mass/Vol]14.2 g/uVZcrylh58.0-16.0The [facility] OhioComment on above:Performed By: #### HSTROPN #### [facility] [address] [place] [address] Dr. Isabell Driscoll #0.15 10e3/ulCritically high0.00-0.03The [facility] Comment on above:Performed By: #### HSTROPN #### [facility] [address] [place] [address] Dr. Isabell Driscoll %0.9 %Critically high0.0-0.5The [facility] OhioComment on above:Performed By: #### HSTROPN #### [facility] [address] [place] [address] Dr. Isabell Stein #1.5 103/ulNormal1.2-3.8The [facility] OhioComment on above:Performed By: #### HSTROPN #### [facility] [address] [place] [address] Dr. Isabell Roberthocytes/100 WBC (Bld)9.1 %Critically low20.5-60.0The [facility] OhioComment on above:Performed By: #### HSTROPN #### [facility] [address] [place] [address] Dr. Isabell DempseyUAL DIFF REQNONormalThe South Amboy HospitalComment on above: Performed By: #### HSTROPN #### [facility] [address] [place] [address] Dr. Isabell Juárez (RBC) [Entitic mass]27.5 xyCzidtj05.7-34.0The [facility] OhioComment on above:Performed By: #### HSTROPN #### [facility] [address] [place] [address] Dr. Isabell Gardner (RBC) [Mass/Vol]33.5 g/kJDggwgu49.9-35.2The [facility] OhioComment on above:Performed By: #### HSTROPN #### [facility] [address] [place] [address] Dr. Isabell GardnerV (RBC) [Entitic vol]82.2 nUSmzlpk06.0-99.0The [facility] OhioComment on above:Performed By: #### HSTROPN #### [facility] [address] [place] [address] Dr. Isabell Gonzalez #1.1 103/ulCritically high0.3-0.8The [facility] Comment on above:Performed By: #### HSTROPN #### [facility] [address] [place] [address] Dr. Isabell Grandaocytes/100 WBC (Bld)6.4 %Normal1.7-12.0[facility] Comment on above:Performed By: #### HSTROPN #### [facility] [address] [place] [address] Dr. Isabell Malloy #13.8 103/ulCritically high1.4-6.5The [facility] Comment on above:Performed By: #### HSTROPN #### [facility] [address] [place] [address] Dr. Isabell Simmonsutrophils/100 WBC (Bld)83.1 %Critically high43.0-75.0The [facility] OhioComment on above:Performed By: #### HSTROPN #### [facility] [address] [place] [address] Dr. Isabell Mathewlet mean volume (Bld) [Entitic vol]8.7 fLCritically low 9.5-13.5The [facility] OhioComment on above:Performed By: #### HSTROPN #### [facility] [address] [place] [address] Dr. Isabell HansonT438 103/maIfyrwz573-196Grn [facility] OhioComment on above: Performed By: #### HSTROPN #### [facility] [address] [place] [address] Dr. Isabell PeñaRBC5.16 106/ulNormal4.20-5.40The [facility] on above:Performed By: #### HSTROPN #### [facility] [address] [place] [address] Dr. Isabell PeñaWBC16.7 103/ulCritically high4.0-11.0The [facility] OhioComgarden city hospital on above:Performed By: #### HSTROPN #### [facility] [address] [place] [address] Dr. Isabell Gutierrez 14-33-2009FWC [Mass/Vol]mg/LNormal<=1.0The [facility] on above:Performed By: #### HSTROPN #### [facility] [address] [place] [address] Dr. Isabell Pastor URINE PROFILEon 19-08-5956Hvhzpbspk Ql (U)NegativeNormal NEGATIVEThe [facility] OhioComment on above:Performed By: #### CARLENE MORALESRO #### [facility] [address] [place] [address] Dr. Isabell PeñaClarity (U)CLEARNormalCLEARThe [facility] OhioComgarden city hospital on above: Performed By: #### KAREN MORALES #### [facility] [address] [place] [address] (U)LT. YELLOWNormalYELLOWPremier Health on above:Performed By: #### CARLENE MORALESRO #### [facility] [address] [place] [address] Dr. Isabell VillalobosDA micrscopic examination will be performed if indicated. NormalThe [facility] OhioComgarden city hospital on above:Performed By: #### CARMEN UMICRO #### [facility] [address] [place] [address] Dr. Isabell PeñaGlucose Ql (U)NegativeNormalNEGATIVEThe [facility] OhioComment on above:Performed By: #### ERUR, UMICRO #### [facility] [address] [address] [address] Isabell PeñaHemoglobin Ql (U)NegativeNormalNEGMansfield Hospital Comment on above:Performed By: #### CARMEN UMICRO #### [facility] [address] [address] [address] Isabell PeñaKetones Ql (U)NegativeNormalNEGATIVEThe [facility] OhioComment on above:Performed By: #### CARMEN UMICRO #### [facility] [address] [place] [address] Dr. Isabell PeñaLEUKOCYTESLARGEAbnormalNEGATIVEDoctors HospitalComment on above:Performed By: #### CARMEN UMICRO #### [facility] [address] [place] [address] Dr. Isabell PeñaNitrite Ql (U)NegativeNormalNEGATIVEDoctors HospitalComment on above:Performed By: #### CARMEN UMICRO #### [facility] [address] [place] [address] Dr. Isabell PeñapH (U)6.5 [pH]Normal5-9Doctors HospitalComment on above: Performed By: #### CARMEN UMICRO #### [facility] [address] [place] [address] Dr. Isabell PeñaSPEC GRAVITY1.843Ojhija0.005-<=1.025The [facility] OhioComment on above:Performed By: #### CARMEN UMICRO #### [facility] [address] [place] [address] Dr. Isabell PeñaUA PROTEINNegativeNormalNEGATIVE/ TRACEThe [facility] Comment on above:Performed By: #### CARMEN UMICRO #### [facility] [address] [place] [address] Dr. Isabell Gurrola MICRO INDINDICATEDNoalThFayette County Memorial HospitalComment on above: Performed By: #### CARMEN UMICRO #### [facility] [address] [place] [address] Dr. Isabell Ulloa Qn (U)0.2 {Bradly'U}/dLNormal0.2 - 1.0The [facility] OhioComment on above:Performed By: #### SELVINRKAREN #### [facility] [address] [address] [address] Isabell PeñaLACTATE/LACTIC ACIDon 50-77-5112Xjzrugj [Moles/Vol]1.2 mmol/L Normal0.4-1.9The [facility] OhioComment on above:Performed By: #### LACT #### [facility] [address] [address] [address] Isabell PeñaPROJonel 14(COMP METB)on 05-17-9740Kqivrzb [Mass/Vol]3.6 g/dLNormal 3.4-5.0The [facility] OhioComment on above:Performed By: #### HSTROPN #### [facility] [address] [place] [address] Dr. Isabell PeñaAlbumin/Globulin [Mass ratio]1.0 {ratio}NormalThe [facility] OhioComment on above:Performed By: #### HSTROPN #### [facility] [address] [place] [address] Dr. Isabell Tse [Catalytic activity/Vol]79 U/NTbexbz51-973Rrm [facility] OhioComment on above:Performed By: #### HSTROPN #### [facility] [address] [place] [address] Dr. Isabell Barnett [Catalytic activity/Vol]23 U/AFoobno96-00Zpu [facility] OhioComment on above:Performed By: #### HSTROPN #### [facility] [address] [place] [address] Dr. Isabell Bunch gap [Moles/Vol]12.7 mmol/LNormalThe [facility] on above:Performed By: #### HSTROPN #### [facility] [address] [place] [address] Dr. Yilan ChangAST [Catalytic activity/Vol]19 U/LXgckjj22-27Lkt [facility] OhioComment on above:Performed By: #### HSTROPN #### [facility] [address] [place] [address] Dr. Isabell PeñaBilirubin [Mass/Vol]0.7 mg/dLNormal0.2-1.0The [facility] Comment on above:Performed By: #### HSTROPN #### [facility] [address] [place] [address] Dr. Isabell PeñaCalcium [Mass/Vol]9.8 mg/dLNormal8.5-10.1The [facility] Comment on above:Performed By: #### HSTROPN #### [facility] [address] [place] [address] Dr. Isabell PeñaChloride [Moles/Vol]93 mmol/LCritically ldt77-224Peg [facility] OhioComment on above:Performed By: #### HSTROPN #### [facility] [address] [place] [address] Dr. Isabell PeñaCO2 [Moles/Vol]29.9 mmol/XTeikpe01.0-32.0The [facility] Comment on above:Performed By: #### HSTROPN #### [facility] [address] [place] [address] Dr. Isabell PeñaCreatinine [Mass/Vol]1.14 mg/dLCritically high0.55-1.02The [facility] OhioComment on above:Performed By: #### HSTROPN #### [facility] [address] [place] [address] Dr. Whyte ChangEGFR-AF ZOEGOMBR62 mL/min/1.99k5Hpmpiwinsq low>=60The [facility] OhioComment on above:Performed By: #### HSTROPN #### [facility] [address] [place] [address] Dr. Isabell PerezGFR-NON AF ZKJSJDRM79 mL/min/1.15e3Eelloazzeo low>=60The [facility] OhioComment on above:Performed By: #### HSTROPN #### [facility] [address] [address] [address] Isabell PeñaGlobulin (S) [Mass/Vol]3.7 g/dLNormHenry County HospitalComment on above:Performed By: #### HSTROPN #### [facility] [address] [address] [address] Isabell PeñaGlucose [Mass/Vol]110 mg/dLCritically apdu99-770Lxb [facility] OhioComment on above:Performed By: #### HSTROPN #### [facility] [address] [address] [address] Isabell PeñaPotassium [Moles/Vol]3.6 mmol/LNormal3.5-5.1The [facility] Comment on above:Performed By: #### HSTROPN #### [facility] [address] [address] [address] Isabell PeñaProtein [Mass/Vol]7.3 g/dLNormal6.4-8.2[facility] Comment on above:Performed By: #### HSTROPN #### [facility] [address] [address] [address] Isabell PeñaSodium [Moles/Vol]132 mmol/LCritically qyd170-620Kdj [facility] OhioComment on above:Performed By: #### HSTROPN #### [facility] [address] [address] [address] Isabell PeñaUrea nitrogen [Mass/Vol]30.0 mg/dLCritically high7.0-18.0The [facility] OhioComment on above:Performed By: #### HSTROPN #### [facility] [address] [address] [address] Isabell PeñaUrea nitrogen/Creatinine [Mass ratio]26.3 mg/mgNoBluffton HospitalComment on above:Performed By: #### HSTROPN #### [facility] [address] [address] [address] Isabell Longoria, HIGH SENSITIVITYon 51-20-0632HZSPCB23.5 pg/mLNormal 4.0-51.3The [facility] OhioComment on above:Result Comment: CUT-OFF POINTS HAVE BEEN ESTABLISHED BASED ON THE FOURTH UNIVERSAL DEFINITIONS OF MYOCARDIAL INFARCTION. THE UPPER REFERENCE LIMIT (URL) OF TROPONIN, DEFINED THE 99TH PERCENTILE OF cTnI DISTRIBUTION IN A REFERENCE POPULATION, HAS BEEN CONFIRMED THE DECISION THRESHOLD FOR [place] DIAGNOSIS.Performed By: #### HSTROPN #### [facility] [address] [place] [address] Dr. Isabell Tijerina 33-41-2191IDB3.628 uIU/mLNormal0.358-3.740The [facility] OhioComment on above:Performed By: #### HSTROPAntonina #### [facility] [address] [place] [address] Dr. Isabell Toledo 37-49-3887DGEEDOFSXZET SEENNormalNONE SEENDoctors HospitalComment on above:Performed By: #### KAREN MORALES #### [facility] [address] [place] [address] Dr. Isabell George identified Cx Nom (U)INDICATEDSt. John of God HospitalComment on above:Performed By: #### KAREN MORALES #### [facility] [address] [place] [address] Dr. Isabell Celaya SEENNormalNONE SEENDoctors HospitalComment on above:Performed By: #### KAREN MORALES #### [facility] [address] [place] [address] Dr. Isabell Plascencia LM Nom (Urine sed)NONE SEENNormalNONE SEENDoctors HospitalComment on above:Performed By: #### CARLENE MORALESRO #### [facility] [address] [place] [address] Dr. Isabell Hoskinsthelial cells LM Ql (Urine sed)FEWAbnormalNONE SEEN /RAREThe [facility] OhioComment on above:Performed By: #### CARLENE MORALESRO #### [facility] [address] [place] [address] Dr. Isabell PeñaMUGAELUSZENAIDA SEENNormalNONE SEENDoctors HospitalComment on above:Performed By: #### KAREN MORALES #### [facility] [address] [address] [address] Isabell PeñaWboljZCX1-1Oioner3-7Sfe [facility] OhioComment on above:Performed By: #### KAREN MORALES #### [facility] [address] [address] [address] Whyte ChangWBC5-10AbnormalNONE SEENDoctors HospitalComment on above: Performed By: #### KAREN MORALES #### [facility] [address] [address] [address] Isabell BeasleyVID-19 SOFIAOrdered By: Devin Moreau on 03-27-2022 SARS-CoV+SARS-CoV-2 (COVID-19) Ag IA.rapid Ql (Resp)NegativeNegativeCleveland ClinicComment on above:This is a duplicate Saba SARS Antigen (CORAZON) result to be used for statistical tracking purpose only.No Panel InformationOrdered By: Devin Moreau on 56-90-0350VCAF Antigen (LFIA)[facility] HealthARS Antigen (LFIA)[facility] Basophils Auto (Bld) [#/Vol]Ordered By: Devin Moreau on 45-47-9029Jvgptctfw (Bld) [#/Vol]0.1 10*3/uL0.0-0.2FMcKitrick HospitalBasophils/100 WBC Auto (Bld)Ordered By: Devin Moreau on 14-54-9439Sixjetepf/100 WBC (Bld)0.8 %.[facility] ClinicCreatinine and Glomerular filtration rate.predicted panel (S/P/Bld)Ordered By: Devin Moreau on 16-07-4836Bniicsbgqd [Mass/Vol]0.98 mg/dL0.44-1.03C[facility] ClinicEosinophils Auto (Bld) [#/Vol] Ordered By: Devin Moreau on 16-51-4484Nboridcbhnu (Bld) [#/Vol]0.2 10*3/uL0.0-0.45 [facility] ClinicEosinophils/100 WBC Auto (Bld)Ordered By: Devin Moreau on 82-21-1631Kddmzuosyja/100 WBC (Bld)2.5 %.[facility] ClinicErythrocyte distribution width Auto (RBC) [Ratio]Ordered By: Devin Moreau on 23-40-0651Vbyduhclymw distribution width (RBC) [Ratio]15.5 %11.9-15.3FMcKitrick HospitalEstimated glomerular filtration rate (GFR) non- AmericanOrdered By: Devin Moreau on 07-41-6447SUH/1.73 sq M.predicted among non- blacks MDRD (S/P/Bld) [Vol rate/Area]56 mL/MinCleveland Clinic Hematocrit Auto (Bld) [Volume fraction]Ordered By: Devin Moreau on 03-16-2022 Hematocrit (Bld) [Volume fraction]40.9 %34.0-46.4FMcKitrick HospitalHemoglobin [Mass/volume] in BloodOrdered By: Devin Moreau on 03-16-2022 Hemoglobin (Bld) [Mass/Vol]13.3 g/dL11.8-15.4FMcKitrick Hospital Laboratory - Hematology and Cell countsOrdered By: Devin Moreau on 03-16-2022 Nucleated RBC/100 WBC (Bld) [Ratio]0.1 %0-0.5FMcKitrick Hospital Leukocytes [#/volume] in Blood by Automated countOrdered By: Devin Moreau on 05-43-9655AYQ (Bld) [#/Vol]6.8 10*3/uL4.5-11.0[facility] Lymphocytes Auto (Bld) [#/Vol]Ordered By: Devin Moreau on 20-45-5329Frqzirgzmkv (Bld) [#/Vol]1.3 10*3/uL1.00-4.8C[facility] ClinicLymphocytes/100 WBC Auto (Bld)Ordered By: Devin Moreau on 46-48-5520Rsdrxebgxwo/100 WBC (Bld)19.5 %.[facility] ClinicMCH Auto (RBC) [Entitic mass]Ordered By: Devin Moreau on 75-87-9888HIG (RBC) [Entitic mass]27.7 pg24.7-34.3FMcKitrick HospitalMCHC Auto (RBC) [Mass/Vol]Ordered By: Devin Moreau on 36-81-8977AVZZ (RBC) [Mass/Vol]32.6 g/dL32.0-35.0C[facility] ClinicMCV Auto (RBC) [Entitic vol]Ordered By: Devin Moreau on 37-13-0231UDH (RBC) [Entitic vol]85.0 eX72-673ShwyitgixCleveland ClinicMonocytes Auto (Bld) [#/Vol]Ordered By: Devin Moreau on 08-79-8593Lmpfnudul (Bld) [#/Vol]0.8 10*3/uL 0.0-0.8C[facility] ClinicMonocytes/100 WBC Auto (Bld)Ordered By: Devin Moreau on 96-59-0085Lscjtiwhq/100 WBC (Bld)11.2 %.[facility] ClinicNeutrophils Auto (Bld) [#/Vol]Ordered By: Devin Moreau on 03-16-2022 Neutrophils (Bld) [#/Vol]4.5 10*3/uL1.8-7.7FMcKitrick Hospital Neutrophils/100 WBC Auto (Bld)Ordered By: Devin Moreau on 03-16-2022 Neutrophils/100 WBC (Bld)66.0 %.[facility] ClinicNo Panel InformationOrdered By: Devin Moreau on 61-63-8943Fmcobfypm GFR ()> 60 mL/MinCleveland ClinicComment on above:GFR estimated reference range: According to KDOQI guidelines, <60 ml/min/1.73m2 is sufficient todiagnose a patient with chronic kidney disease.Pharmacy Creatinine Clearance (ChemN/[facility] TroyPlatelet mean volume Auto (Bld) [Entitic vol]Ordered By: Devin Moreau on 65-03-3295Eyzmnnhz mean volume (Bld) [Entitic vol]8.3 fL6.3-10.7FMcKitrick HospitalPlatelets Auto (Bld) [#/Vol]Ordered By: Devin Moreau on 87-91-3397Oibscojif (Bld) [#/Vol]302 10*3/uL 150-450Cleveland ClinicRBC Auto (Bld) [#/Vol]Ordered By: Devin Moreau on 05-69-8066FIK (Bld) [#/Vol]4.81 10*6/uL3.60-5.00Mercy Healtherum or plasma anion gap determinationOrdered By: Devin Moreau on 17-87-4670Mkmat gap [Moles/Vol]13.6 mmol/L6.0-15.0Mercy Healtherum or plasma calcium measurement (mass/volume)Ordered By: Devin Moreau on 51-62-7627Czutiln [Mass/Vol]10.0 mg/dL8.2-10.2FMcKitrick Hospital Serum or plasma chloride measurement (moles/volume)Ordered By: Devin Moreau on 27-18-1945Oadcneul [Moles/Vol]98 mmol/P79-987RugevbbfrCleveland Clinic Serum or plasma glucose measurement (mass/volume)Ordered By: Devin Moreau on 45-78-1134Kjkysqt [Mass/Vol]94 mg/eF28-480OpmxcfkvpCleveland Clinic Comment on above:ADA recommended reference rangeRandom Glucose Reference Range is dependent on time and content of last meal. Glucose of more than 200 mg/dL in a nonstressed, ambulatory subject supports the diagnosisof Diabetes Mellitus. Serum or plasma potassium measurement (moles/volume)Ordered By: Devin Moreau on 01-16-1443Ffkvfjsfd [Moles/Vol]4.8 mmol/L3.5-5.1FMount St. Mary Hospitalerum or plasma sodium measurement (moles/volume)Ordered By: Devin Moreau on 79-48-8024Vzijye [Moles/Vol]137 mmol/G846-093VpadaoyrdCleveland Clinic Serum or plasma total carbon dioxide measurement (moles/volume)Ordered By: Devin Moreau on 59-07-0236CM7 [Moles/Vol]30.2 mmol/L22.0-30.0Mercy Healtherum or plasma urea nitrogen measurement (mass/volume)Ordered By: Devin Moreau on 21-60-1942Yyph nitrogen [Mass/Vol]19 mg/dL9-23Cleveland ClinicOffice Visit (Cardiology)on 70-41-0375Yqnijb-up visit Diagnoses/Problems Assessed Mitral regurgitation (424.0) (I34.0) [...] Metabolic Panel; Status:Active - Retrospective Authorization; Requested for:[id number]; Complete Blood Count; Status:Active - Retrospective Authorization; Requested for:[id number]; Lipid Panel; Status:Active - Retrospective Authorization; Requested for:[id number]; Essential hypertension, PMH: Nonischemic cardiomyopathy Renew: Carvedilol 6.25 MG Oral Tablet; TAKE 1 TABLET TWICE DAILY WITH MEALS Mitral regurgitation, PMH: Nonischemic cardiomyopathy Echocardiogram; Status:Hold For - Scheduling,Retrospective Authorization; Requested for:[id number]; PMH: Nonischemic cardiomyopathy Continue with our present [...] 2021. Ejection fraction 55-60% Bryce Hendrickson MD, [facility] Surgical History Problems History of Appendectomy [...] Recorded: 10Feb2022 08:39AM Heart Rate62, R Radial Ummqdbxn397, RUE, Sitting Pfftkeevz67, RUE, Sitting Height5 ft 1 in Erbbjs557 lb BMI Xhaaddyxhp26.42 kg/m2 BSA Calculated1.72 Tobacco Useb) No PHQ-2 #1. Over the last 2 weeks have you felt down, depressed or hopeless? (If yes, answer PHQ-9 below)No PHQ-2 #2. Over the last 2 weeks have you felt little interest or pleasure in doing things? (If yes,answer PHQ-9 below)No (more content not included)...NormalUH TouchworksTobacco Screening.on 02-10-2022 Adult depression screening assessmentNoSkyline Hospital Hapten Sciences DO Work Phone: Fall risk assessmentb) One or more falls in the last yearSkyline Hospital Hapten Sciences DO Work Phone: Tobacco use status CPHSb) NoMSt. Anthony Hospital Flaskon DO Work Phone: MG MAMM DX 3D RT CADon 54-96-6946YU MAMM DX 3D RT CAD Patient: RENUKA OWEN Exam Date: 02/05/2022 : 1950 Gender:F Ordering : DR AJAY SONG [facility] Admission #: [id number] Family : Order #: [id number] CLICK HERE TO VIEW EXAM RADIOLOGY REPORT PROCEDURE: MAMMOGRAM DIAGNOSTIC 3D RIGHT CAD COMPARISON: MG MAMM DX 3D RT CAD, 02/04/2021. INDICATIONS: Estrogen receptor negative neoplasm Calculator Name NCI Breast Cancer Risk Assessment Tool 5 Year Breast Cancer Risk n/a% Lifetime Breast Cancer Risk n/a% Personal Breast Cancer Yes, Left breast cancer 2012 Personal Ovarian Cancer No Treatments Left mastectomy, radiation, emmymwmwrfes06 Family Cancers Father with testicular cancer at age 27. LOCATION: [facility] BREAST COMPOSITION: Scattered areas fibroglandular density. FINDINGS: [...] LUMP SHOULD BE BIOPSIED. Dictated by: Evelin Doll MD on 02/05/2022 at 14:46 Approved by: Evelin Doll MD on 02/05/2022 at 14:47[facility] WO CONon 55-90-0077IPR LSPINE WO CONEXAMINATION: MRI [facility] WO CON HISTORY: Idiopathic osteoarthritis ; chronic [...] Electronically authenticated by: TAMY HOLM Date: 2022-01-09 14:16[facility] HospitalCOVID-19 Positive/NegativeOrdered By: Devin Mroeau on 10-06-2021 SARS-CoV-2 (COVID-19) N gene JANET+probe Ql (Resp)NegativeNegativeCleveland ClinicComment on above:Testing for SARS-CoV-2 by RT-PCR This test was developed and its performance characteristics determined by [employer] and validated at the [facility]. This test has not been FDA cleared [...] Auto (Bld) [#/Vol]Ordered By: Devin Moreau on 65-25-6131Obokrqpzq (Bld) [#/Vol]0.1 10*3/uL0.0-0.2FMcKitrick HospitalBasophils/100 WBC Auto (Bld)Ordered By: Devin Moreau on 09-24-2021 Basophils/100 WBC (Bld)1.2 %C[facility] ClinicBlood hemoglobin measurement (mass/volume)Ordered By: Devin Moreau on 53-66-0621Fyrcwbwvyi (Bld) [Mass/Vol]12.9 g/dL11.8-15.4FMcKitrick HospitalBlood leukocytes automated count (number/volume)Ordered By: Devin Moreau on 32-61-6165JJD (Bld) [#/Vol]5.9 10*3/uL4.5-11.0Cleveland ClinicCreatinine and Glomerular filtration rate.predicted panel (S/P/Bld)Ordered By: Devin Moreau on 75-00-9886Sunopknqkt [Mass/Vol]0.80 mg/dL0.44-1.03Cleveland ClinicEosinophils Auto (Bld) [#/Vol]Ordered By: Devin Moreau on 09-24-2021 Eosinophils (Bld) [#/Vol]0.2 10*3/uL0.0-0.45[facility] Eosinophils/100 WBC Auto (Bld)Ordered By: Devin Moreau on 09-24-2021 Eosinophils/100 WBC (Bld)2.6 %Cleveland ClinicErythrocyte distribution width Auto (RBC) [Ratio]Ordered By: Devin Moreau on 09-24-2021 Erythrocyte distribution width (RBC) [Ratio]15.8 %11.9-15.3FMcKitrick HospitalEstimated glomerular filtration rate (GFR) non- Ordered By: Devin Moreau on 51-98-0140FOS/1.73 sq M.predicted among non-blacks MDRD (S/P/Bld) [Vol rate/Area]> 60 mL/MinCleveland Clinic Hematocrit Auto (Bld) [Volume fraction]Ordered By: Devin Moreau on 09-24-2021 Hematocrit (Bld) [Volume fraction]39.6 %34.0-46.4FMcKitrick HospitalLaboratory - Hematology and Cell countsOrdered By: Devin Moreau on 87-95-9142Zkugsanvm RBC/100 WBC (Bld) [Ratio]0.0 %0-0.5FMcKitrick HospitalLymphocytes Auto (Bld) [#/Vol]Ordered By: Devin Moreau on 09-24-2021 Lymphocytes (Bld) [#/Vol]1.1 10*3/uL1.00-4.8[facility] Lymphocytes/100 WBC Auto (Bld)Ordered By: Devin Moreau on 09-24-2021 Lymphocytes/100 WBC (Bld)18.2 %Cleveland ClinicMCH Auto (RBC) [Entitic mass]Ordered By: Devin Moreau on 23-11-7348XVI (RBC) [Entitic mass]27.0 pg24.7-34.3FMcKitrick HospitalMCHC Auto (RBC) [Mass/Vol]Ordered By: Devin Moreau on 99-94-2633NGNR (RBC) [Mass/Vol]32.6 g/dL32.0-35.0Cleveland ClinicMCV Auto (RBC) [Entitic vol]Ordered By: Devin Moreau on 94-21-2308BVU (RBC) [Entitic vol]82.7 jO32-781FvctuqvlzCleveland Clinic Monocytes Auto (Bld) [#/Vol]Ordered By: Devin Moreau on 38-22-6719Wkumdiefb (Bld) [#/Vol]0.7 10*3/uL0.0-0.8Cleveland ClinicMonocytes/100 WBC Auto (Bld)Ordered By: Devin Moreau on 35-01-4435Jssdoewbe/100 WBC (Bld)11.4 %Cleveland ClinicNeutrophils Auto (Bld) [#/Vol]Ordered By: Devin Moreau on 83-17-3950Sxyecnixaba (Bld) [#/Vol]3.9 10*3/uL1.8-7.7FMcKitrick HospitalNeutrophils/100 WBC Auto (Bld)Ordered By: Devin Moreau on 09-24-2021 Neutrophils/100 WBC (Bld)66.6 %Cleveland ClinicNo Panel InformationOrdered By: Devin Moreau on 72-43-9881Edmjlhtri GFR ()> 60 mL/MinCleveland ClinicComment on above:GFR estimated reference range: According to KDOQI guidelines, <60 ml/min/1.73m2 is sufficient todiagnose a patient with chronic kidney disease.Pharmacy Creatinine Clearance (ChemN/[facility] TroyPlatelet mean volume Auto (Bld) [Entitic vol]Ordered By: Devin Moreau on 99-98-5878Zqdzwoed mean volume (Bld) [Entitic vol]7.6 fL6.3-10.7FMcKitrick HospitalPlatelets Auto (Bld) [#/Vol]Ordered By: Devin Moreau on 81-73-7804Cztdwurxm (Bld) [#/Vol]296 10*3/uL 150-450Cleveland ClinicRBC Auto (Bld) [#/Vol]Ordered By: Devin Moreau on 52-03-1501VQP (Bld) [#/Vol]4.79 10*6/uL3.60-5.00Mercy Healtherum or plasma calcium measurement (mass/volume)Ordered By: Devin Moreau on 36-90-9874Fkxuqnl [Mass/Vol]8.7 mg/dL8.2-10.2FMount St. Mary Hospitalerum or plasma chloride measurement (moles/volume)Ordered By: Devin Moreau on 67-42-4997Hebaexlx [Moles/Vol]100 mmol/V65-935DulzdvzkkMercy Healtherum or plasma glucose measurement (mass/volume)Ordered By: Devin Moreau on 42-81-7403Imnvfov [Mass/Vol]90 mg/sT82-630LeocdmueyCleveland Clinic Comment on above:ADA recommended reference range Random Glucose Reference Range is dependent on time and content of last meal. Glucose of more than 200 mg/dL in a nonstressed, ambulatory subject supports the diagnosis of Diabetes Mellitus.Serum or plasma potassium measurement (moles/volume)Ordered By: Devin Moreau on 69-04-7207Gkeuyxlop [Moles/Vol]4.1 mmol/L3.5-5.1FMount St. Mary Hospitalerum or plasma sodium measurement (moles/volume)Ordered By: Devin Moreau on 54-54-0631Mtwwac [Moles/Vol]136 mmol/L 136-146Mercy Healtherum or plasma total carbon dioxide measurement (moles/volume)Ordered By: Devin Moreau on 93-07-6492AO9 [Moles/Vol] 25.2 mmol/L22.0-30.0Mercy Healtherum or plasma urea nitrogen measurement (mass/volume)Ordered By: Devin Moreau on 55-01-0432Awcm nitrogen [Mass/Vol]20 mg/dL9-23Cleveland ClinicBasi Metabolic Panlon 92-01-2965Vasad gap [Moles/Vol]16 mmol/LNormal9-18FMercy Medical Center Comment on above:Performed By: #### BMP, CBCDIF ####[place] [address]-476-7110Calcium [Mass/Vol]9.3 mg/dLNormal 8.5-10.5Fpittsfield general hospital HospitalComment on above:Performed By: #### JOSE, CBCDIF ####[place] [address]-476-7110Chloride [Moles/Vol]101 mmol/RWbrkjw67-290Jjvghivj HospitalComment on above:Performed By: #### JOSE, CBCDIF ####[place] [address]-476-7110CO2 [Moles/Vol]22 mmol/SSan81-62Mfjzpsus HospitalComment on above:Performed By: #### JOSE, CBCDIF ####[place] [address]-476-7110Creatinine [Mass/Vol]0.84 mg/dLNormal 0.70-1.40L[facility] HospitalComment on above:Performed By: #### JOSE, CBCDIF ####[place] [address]-476-7110eGFR- Amer.>60Normal>60L[facility] HospitalComment on above:Performed By: #### JOSE, CBCDIF ####[place] [address]-476-7110GFR/1.73 sq M predicted among non-blacks MDRD (S/P/Bld) [Vol rate/Area]mL/min/{1.73_m2}Normal>60[facility] HospitalComment on above:Performed By: #### JOSE, CBCDIF ####[place] [address]-476-7110Glucose [Mass/Vol]115 mg/bZCzvl58-792Dufeplxp HospitalComment on above:Performed By: #### JOSE, CBCDIF ####[place] [phone] [Moles/Vol]3.6 mmol/LNormal 3.5-5.0L[facility] HospitalComment on above:Performed By: #### JOSE, CBCDIF ####[place] 457066-7110Sodium [Moles/Vol]139 mmol/GSxyudd471-635Fjyeiwkf HospitalComment on above:Performed By: #### JOSE, CBCDIF ####[place] 457066-7110Urea nitrogen [Mass/Vol]16 mg/dLNormal8-25[facility] Comment on above:Performed By: #### JOSE, CBCDIF ####[place] 457066-7110CBC and Differentialon 56-49-4488Uxk Baso<0.03Normal<0.11[facility] HospitalComment on above:Performed By: #### JOSE CBCDIF ####[place] 457066-7110 Abs Mono0.48 k/uLNormal<0.87[facility] HospitalComment on above:Performed By: #### JOSE CBCDIF ####[place] 457066-7110Abs Neut7.17 k/uLNormal1.45-7.50[facility] HospitalComment on above:Performed By: #### JOSE CBCDIF ####[place] 457066-7110Absolute nRBC<0.01Normal<0.01L[facility] HospitalComment on above:Performed By: #### JOSE, CBCDIF ####[place] 457066-7110Basophils/100 WBC (Bld)0.1 %NormalFaarbour-hri hospital HospitalComment on above:Performed By: #### JOSE, CBCDIF ####[place] 457066-7110DTYPE Auto DiffNormalLincoln HospitalComment on above:Performed By: #### JOSE, CBCDIF ####[place] [phone] Eosinophils (Bld) [#/Vol]10*3/uLNormal<0.46[facility] HospitalComment on above: Performed By: #### JOSE, CBCDIF ####[place] 457066-7110Eosinophils/100 WBC (Bld)0.0 %Normal Lincoln HospitalComment on above:Performed By: #### JOSE, CBCDIF ####[place] 457066-7110Erythrocyte distribution width (RBC) [Ratio]13.9 %Fathqs54.5-15.0L[facility] HospitalComment on above:Performed By: #### JOSE, CBCDIF ####[place] 457066-7110Hematocrit (Bld) [Volume fraction]37.7 % Sddzrv37.0-46.0Lincoln HospitalComment on above:Performed By: #### JOSE, CBCDIF ####[place] 457066-7110 Hemoglobin (Bld) [Mass/Vol]12.4 g/kBNazjnt82.5-15.5Fpittsfield general hospital HospitalComment on above:Performed By: #### BMP, CBCDIF ####[place] 457066-7110Lymphocytes (Bld) [#/Vol]0.98 10*3/uLLow 1.00-4.00Lincoln HospitalComment on above:Performed By: #### BMP, CBCDIF ####[place] 457066-7110 Lymphocytes/100 WBC (Bld)11.3 %NormalLincoln HospitalComment on above:Performed By: #### BMP, CBCDIF ####[place] 457066-7110MCH (RBC) [Entitic mass]27.3 sFHxpzjx52.0-34.0[facility] Comment on above:Performed By: #### BMP, CBCDIF ####[place] 457066-7110MCHC (RBC) [Mass/Vol]32.9 g/dLNormal 30.5-36.0L[facility] HospitalComment on above:Performed By: #### BMP, CBCDIF ####[place] 457066-7110MCV (RBC) [Entitic vol]82.9 vNNehxqo95.0-100.0L[facility] HospitalComment on above:Performed By: #### JOSE, CBCDIF ####[place] 457066-7110Monocytes/100 WBC (Bld)5.6 %NormalLincoln HospitalComment on above:Performed By: #### JOSE, CBCDIF ####[place] 457066-7110Neutrophils/100 WBC (Bld)83.0 %Normal [facility] HospitalComment on above:Performed By: #### BMP, CBCDIF ####[place] 457066-7110NRBCs0.0 /100 WBC Utbsgt2Umlarpbz HospitalComment on above:Performed By: #### BMP, CBCDIF ####[address]476-7110Platelet mean volume (Bld) [Entitic vol]10.3 fLNormal9.0-12.7Fpittsfield general hospital HospitalComment on above:Performed By: #### BMP, CBCDIF ####[place] 457066-7110Platelets (Bld) [#/Vol]271 10*3/uLNormal 150-400[facility] HospitalComment on above:Performed By: #### JOSE, CBCDIF ####[place] [phone] (Bld) [#/Vol]4.55 10*6/uLNormal3.90-5.20Lincoln HospitalComment on above:Performed By: #### JOSE, CBCDIF ####[place] [address]99[address]11216-476-7110WBC (Bld) [#/Vol]8.64 10*3/uLNormal3.70-11.00[facility] Comment on above:Performed By: #### JOSE CBCDIF ####[place] 4638111216-476-7110NURSING PROGon 30-03-3346TUKFGUO PROGHNO ID: [id number] Author: Janelle (Rn) JAYA Cast Service: ? Author Type: Registered Nurse Type: Nursing Progress Note Filed: 06/20/2020 12:33 PM Note Text: Nursing Progress Note Patient Name: Renuka Owen Patient Location: [place] [address] Daily Note: 0800: Patient awake in [...] any NANDV a this time. 1050: Sandhya (HOSIERY MENDER) Willner at bedside to discuss plan of care. Plan for discharge this afternoon. 1230: IVs removed, discharge teaching completed. No further questions at this time. This note was completed by: Bassam PadillaPittsfield General Hospital 70-57-1342BOLEPPMXUAV ID: [id number] Author: Vasyl Castillo Service: Colorectal Author Type: [...] Castillo MD,PhD General Surgery, PGY3 Service Pager: [phone] After 6PM, weekends, and holidays: mail caller pager: [phone] Patient Active Hospital Problem List: Obesity, Class [...] 0659 06/20/20 07 - 06/21/20 0659 Shift 9244-7948 6269-6055 7906-6804 24 Hour Total 9362-5180 6431-9419 8957-8798 24 Hour Total INTAKE PO 300 300 [...] protocol in the MR contrast administration guidelines link.[facility] ID: [id number] Author: Anahi Walton Service: General Surgery Author [...] post-operative care Anahi Walton MD General Surgery WDT6VgovgzWuoapxsiBrockton HospitalANES POSTPROC EVALon 25-14-1441CXKE POSTPROC EVALHNO ID: [id number] Author: Tj Hill Service: Anesthesiology Author Type: [...] June 19, 2020 TIME: 5:06 PM CSN: [id number] Hospital PRE-OPon 42-42-2862HZXQ PRE-OPHNO ID: [id number] Author: Ricardo Arvizu Service: Anesthesiology Author Type: [...] June 19, 2020 TIME: 1:32 PM CSN: [id number] Medical Center [facility]2020 [facility]SING [facility] ID: [id number] Author: Willow JonesRn) JAYA Mon Service: ? Author Type: Registered Nurse Type: Nursing Progress Note Filed: 06/19/2020 9:48 PM Note Text: Nursing Progress Note Patient Name: Renuka Owen Patient Location: [place] [address]/[address] Transfer Note: Patient transferred into room/unit PK322 in stable condition. Actions taken: No futher actions taken at this time. Will continue to monitor and check with patient. This note was completed by: Willow Mon RNBoston [facility] ID: [id number] Author: Jody JonesRn) JAYA Hanna Service: Nursing Author Type: Registered Nurse Type: Nursing Progress Note Filed: 06/19/2020 11:55 AM Note Text: PATIENT EDUCATION TOPIC: PROCEDURE / SURGERY: Pre-op Teaching: Logistics Protocols PATIENT NAME: Renuka Owen PATIENT LOCATION: [place] READINESS TO LEARN COGNITIVE ABILITY: Alert and [...] (RECOMMENDATION): None Electronically Signed By: Jody Hanna RNNormalCutler Army Community HospitalOPERATIVE NO on 12-16-3834FOLMWJRNB NOHNO ID: [id number] Author: Saman Lorenzo Service: Colorectal Author Type: Physician Type: Operative Report Filed: 06/21/2020 9:35 AM Note Text: [facility] - Operative Report RENUKA OWEN : 1950 AGE: 69. SEX: F PATIENT TYPE: I HOSP SVC: CORS LOCATION: PK3B22 ATTENDING PHYSICIAN: Saman Lorenzo M.D. CSN NUMBER: [id number] DATE OF SURGERY/PROCEDURE: 06/19/2020 INCISION/PROCEDURE START TIME: 1446 hours. INCISION CLOSE/PROCEDURE END TIME: 1600 hours. 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 SURGEON: Saman Lorenzo M.D. DESIGN VERIFICATION ENGINEER: Dr. Krunal Meyer and Triny He. SURGERY/PROCEDURE: [...] anesthesia and taken to recovery room. Saman oLrenzo M.D. JAT:[id number] /[id number] [facility] NortheastURGICAL PATHOLOGYon 89-90-1240OMFEGXQO PATHOLOGYSpecimen originated from [facility] Specimen #: [id number] Submitting Physician: SAMAN LORENZO FINAL DIAGNOSIS Presacral [...] in-situ hybridization tests have been determined by [facility]'s [facility] Pathology and Laboratory Medicine [place] ([facility]PL[facility]) in a manner consistent with CLIA requirements. One or more of these tests have not been cleared or approved by the FDA. [facility] is regulated under CLIA as qualified to [...] 1 cm from the bone resection margin. Orthodontic Technician sections are submitted as follows: A1-A3 nodule with inked outer surface; A4-A7 nodule with entire bone resection margin following light decalcification. bIan 06/20/2020 Gross examination performed at [facility], [address] [address] Date of Report: 06/25/2020 Date of Procedure: 06/19/2020 Date of Receipt: 06/20/2020 Submitted by: SAMAN LORENZO Location: [facility] Diagnostic interpretation performed at [facility], [facility] [address]. [place] Number: [id number] HospitalCNPNon 47-74-1412BYERGgpbusyex (REFAIR) RENUKA OWEN ([id number]) 1950 F Date Time Provider Department 06/18/20 EVON ZUNIGA During your visit today, we recorded the following information about you: Nick Javier [facility] 06/18/2020 12:13 PM Signed IRB# [id number], Perioperative ISchemic Evaluation 3 (POISE-3), PI: Jeovanny Duque MD. Lincoln Manganese Wheeler: Evon Zuniga MD, UMANG, FASA. [employer]. Anesthesia [place]. This is a research study note. Patient assessments recorded here should not guide either clinical care or clinical decision-making. Patient contacted on behalf of [employer] ([facility]esthesia [place]) regarding eligibility for PeriOperative Ischemic Evaluation 3 [...] review. Nick Cardoso MD Research Fellow Anesthesiology [place] Outcomes Research Department [facility] Allergies As of Date: 06/18/2020 Noted Allergy Reaction PENICILLINS 03/05/2011 4 - Hives LIPITOR (ATORVASTATIN CALCIUM) 03/05/2011 9 - Itching Date Reviewed: 06/03/2020 Reviewed by: Kathy Anglin ([facility]) ANA Lopez - Fully Assessed Reason [...] 06/03/2020 More... Encounter Status:Closed by ELAINA JAVIER [facility], NICK HOANG on 06/18/20Normal Lincoln HospitalType and SCR (30D)on 83-05-2437FAU/RH(D)PositiveNoalLincoln HospitalComment on above:Performed By: #### [id number] ####[facility] [place], [place] [id number] 37-90-9521VHBY Patient:Renuka Owen MRN: Height:5' 2 [patient reported[(1.575 [...] % 06/05/2020 46.0 36.0 Progress Notes (RESEARCH NICKERSON): Nick Javier [facility] 06/18/2020 12:13 PM Signed IRB# [id number], Perioperative ISchemic Evaluation 3 (POISE-3), PI: Jeovanny Duque MD. [place] Manganese Wheeler: Evon Zuniga MD, UMANG, FASA. [employer]. Anesthesia [place]. This is a research study note. Patient assessments recorded here should not guide either clinical care or clinical decision-making. Patient contacted on behalf of [employer] (Anesthesia [place]) regarding eligibility for PeriOperative Ischemic Evaluation 3 [...] review. Nick Cardoso MD Research Fellow Anesthesiology [place] Outcomes Research Department [facility] Progress Notes ([facility]): Megan Batista RN, RN 05/31/2020 12:22 PM Signed Call placed to patient for pre op surgical discussion. She is aware of surgery date of 06/19 and has PACC and Covid 19 testing scheduled. All bowel prep reviewed with patient and sent via My Chart. Pt appreciative of the discussion and contact. Reviewed typical post op expectations and follow up in office. [facility] 18-66-3723VXIIVS HEALTHHNO ID: [id number] Author: Pierce Aguila (Tech) Service: Radiology Author Type: Wood Science Professor Type: Allied Health Filed: 05/15/2020 1:03 PM [...] Owen DATE: May 15, 2020 TIME: 1:02 [facility]MRI [facility] WO/W IVCONon 44-99-2023JEQ RECTUM WO/W IVCON* * *Final Report* * * DATE OF EXAM: May 15 2020 1:16PM [facility] 0754 - MRI RECTUM WO/W IVCON / [...] axial oblique STIR: axial T1 in and gdz-by-rhjad: axial HASTE: coronal large field of view [...] suspicious appearing mesorectal or extramesorectal lymph nodes. Health Education Coordinator: CARTER Transcribe Date/Time: May 15 2020 1:45P Dictated by : BLAKE PARKER MD This examination was interpreted and the report reviewed and electronically signed by: BLAKE PARKER MD on May 15 2020 2:28PM EST [id number] Army Community HospitalPhyunc healthan Referralon 04-24-2020 Physician [id number]#1.00CD:127Normal [facility] Cancer CenterPhysician Referralon 99-89-3164Oysuyqpyv Referral [id number]#1.00CD:127[facility] HospitalCoding Summary.on 09-45-9585Ajtpcs Summary.CODING DATE: 03/26/2020 FINAL [facility] STATUS: Home (Routine DC) PAYOR: Medicare [...] Kathrin Abarca CphT Date Saved: 03/26/2020 09:23 [facility] CenterCT Maxillofacial w/o Contraston 39-95-6438UT Maxillofacial w/o ContrastExam Date/Time: 03/25/2020 11:02 EST [...] Ara Edge MD Transcribed by: SHAKILA Technologist: Peoples HospitalConsent for Treatmenton 11-60-3942Prnxwos for Treatment [id number]#1.00CD:[address] [place], [place] [address]Physician Orderon 41-02-9896Fmtivumtk Order [id number]#1.00CD:[address] [place], [place] [address]CBCon 30-23-2511Lttivsdqnll distribution width Auto Ratio (RBC)14.9 % Wxvbvn33.0-15.4EMH HealthcareComment on above:Performed By: #### [id number] ####[facility] [address] [place] [address] Hematocrit Auto Volume Fraction (Bld)39.6 %Xfxwks03.5-46.6EMH HealthcareComment on above:Performed By: #### [id number] ####[facility] [address] [place], [place] [id number] mass conc (Bld)12.8 g/dL Vqiamb35.8-15.3EMH HealthcareComment on above:Performed By: #### [id number] ####[facility] [address] [place] [address] MCH Auto Entitic mass (RBC)27.8 bzMfjdrh81.5-33.0EMH HealthcareComment on above: Performed By: #### [id number] ####[facility] Fvp[address] [place], [place] [address]TQEI Auto mass conc (RBC)32.3 g/xXAhpdhe70.1-35.0EMH HealthcareComment on above:Performed By: #### [id number] ####[facility] [address] [place] [address]UXV Auto Entitic volume (RBC)85.9 lGBfbgsj18.4-100.0EMH HealthcareComment on above:Performed By: #### [id number] ####[facility] [address] [place] [address]LZYV Absolute0.00 10*3/uLNormalEMH HealthcareComment on above:Performed By: #### [id number] ####[address] [address]QVYS Automated0.0 /100{WBCs}NormalEMH HealthcareComment on above:Performed By: #### [id number] ####[facility] J[address] [place] [address] 801[address]Zhcyxdlg mean volume Auto Entitic volume (Bld) 10.9 fLNormal9.9-12.1EMH HealthcareComment on above:Performed By: #### [id number] ####[facility] [address] [place] [address] Platelets Auto #/vol (Bld)176 10*3/aPVqwspc668-544OQI HealthcareComment on above:Performed By: #### [id number] ####[facility] N[address] [place] [address]HIP Auto #/vol (Bld)4.61 10*6/uLNormal3.85-5.10 EMH HealthcareComment on above:Performed By: #### [id number] ####[facility] B[address] [place] [address]IYY SD46.7 fL Kkdgdu87.3-48.6EMH HealthcareComment on above:Performed By: #### [id number] ####[facility] Alg[address] [place] [address] WBC Auto #/vol (Bld)6.2 10*3/uLNormal4.4-9.9EMH HealthcareComment on above: Performed By: #### [id number] ####[facility] Bnc[address] [facility] [place], [place] [address]Rctfbmpdxasa 47-63-3736Tcrsauxbou mass conc1.04 mg/dL Normal0.50-1.05EMH HealthcareComment on above:Performed By: #### [id number] ####[facility] M[address] [place] [address] GFR/1.73 sq M.predicted MDRD vol rate/area53 mL/min/{1.73_m2}NormalEMH HealthcareComment on above:Result Comment: Interpretation for Chronic Kidney Disease:Stages 1&2 >60 Healthy or potential kidney damage.Mild decrease of GFR.Stage 3 30-59 Moderate decrease of GFR.Stage 4 15-29 Severe decrease of GFR.Stage 5 <15 Kidney failure or on dialysis.Performed By: #### [id number] ####[facility] [address] [place] [address] Electrolyte Panelon 48-40-1349Ydcvb gap 3 molar conc12 mmol/SXpssln98-83MDM HealthcareComment on above:Performed By: #### [id number] ####[facility] Wgn[address] [place], [place] [address]Fbwydojj molar scga334 mmol/PEyrqvl02-081GFT HealthcareComment on above:Performed By: #### [id number] ####[facility] [address] [place] [address] HCO3 molar conc (Bld)30 mmol/OGnwjyo40-74FEA HealthcareComment on above: Performed By: #### [id number] ####[facility] G[address] [facility] [address]Foczqucwy molar conc3.7 mmol/LNormal3.5-5.1EMH HealthcareComment on above:Performed By: #### [id number] ####[facility] A[address] [place], [place] [address]Hsedij molar cdpi546 mmol/VQhvlhx697-826XSB HealthcareComment on above:Performed By: #### [id number] ####[facility] Z[address] [place] [address] Urea Nitrogenon 71-31-0054Rwwn nitrogen mass conc28 mg/dLHigh6-23EMH Healthcare Comment on above:Performed By: #### [id number] ####[facility] S[address] [place] [address] Vital Signs Date TimeVital SignValuePerforming EhwtmyodgNgonzoze16-08-1584 13:36-0400Body ednzca027.[address]10-20-2025 13:36-0400Body mass index (BMI) [Ratio]27.96 kg/m[address] 02-19-2025 13:36-0400Body .[address] 02-19-2025 13:36-0400Diastolic blood siwilywq88 mm[Hg][address]10-20-2025 13:36-0400Systolic blood bnhgxekx642 mm[Hg][address]09-30-2025 09:30-0400Body ufilmi673.9 cmBryce Hendrickson MD Work Phone: [facility]09-30-2025 09:30-0400 Body mass index (BMI) [Ratio]28.08 kg/z1WuomgvBryce Hendrickson MD Work Phone: [facility]09-30-2025 09:30-0400 Body bymeki08.41 kgBryce Hendrickson MD Work Phone: [facility]09-30-2025 09:30-0400 Diastolic blood bumpwtvr11 mm[Hg]Bryce Hendrickson MD Work Phone: [facility]09-30-2025 09:30-0400 Heart rate68 /minBryce Hendrickson MD Work Phone: [facility]09-30-2025 09:30-0400 Systolic blood skclvniy865 mm[Hg]Bryce Hendrickson MD Work Phone: [facility]09-15-2025 11:46-0400 Body emihir998.48 cmBenjamin Ball DO Work Phone: 1(833)[address]09-15-2025 11:46-0400 Body mass index (BMI) [Ratio]27.4 kg/l8Zhscjkob Ball DO Work Phone: 1(193)[address] [place], [place] 7578009-15-2025 11:46-0400 Body wzzenv42.15 kgBenjamin Ball DO Work Phone: 1(747)[address] [place], [place] 7578009-15-2025 11:46-0400 Diastolic blood jdekzzts15 mm[Hg]Sylvester Ball DO Work Phone: 1(244)[address] [place], [place] 7578009-15-2025 11:46-0400 Heart rate72 /minBenjamin Ball DO Work Phone: 1(015)[address] [place], [place] 7578009-15-2025 11:46-0400 Respiratory rate12 /minBenjamin Ball DO Work Phone: 1(814)[address] [place], [place] 7578009-15-2025 11:46-0400 Systolic blood ostyfxyy355 mm[Hg]Sylvester Ball DO Work Phone: 1(869)[address] [place], [place] 7578009-11-2025 16:14-0400 Body vituef022.48 cmBenjamin Ball DO Work Phone: 1(067)[address] [place], [place] 7578009-11-2025 16:14-0400 Body mass index (BMI) [Ratio]27.2 kg/u7Qvjinzvi Ball DO Work Phone: 1(799)[address] [place], [place] 7578009-11-2025 16:14-0400 Body ftqsuegqozu39.8 [degF]Sylvester Ball DO Work Phone: 1(888)[address] [place], [place] 7578009-11-2025 16:14-0400 Body kkhyzy17.58 kgBenjamin Ball DO Work Phone: 1419)[address] [place], [place] 7578009-11-2025 16:14-0400 Diastolic blood rqcrtjom53 mm[Hg]Sylvester Ball DO Work Phone: 1(419)[address] [place], [place] 7578009-11-2025 16:14-0400 Heart rate77 /minBenjamin Ball DO Work Phone: 1419)[address] [place], [place] 7578009-11-2025 16:14-0400 Respiratory rate18 /minBenjamin Ball DO Work Phone: 1419)[address] [place], [place] 7578009-11-2025 16:14-0400 SaO2% (BldA) [Mass fraction]97 %Sylvester Ball DO Work Phone: 1(419)[address] [place], [place] 7578009-11-2025 16:14-0400 Systolic blood hdejgtyk26 mm[Hg]Sylvester Ball DO Work Phone: 1419)[address] [place], [place] 7578008-01-2025 09:33-0400 Diastolic blood mm[Hg]Sylvester Ball DO Work Phone: 1(419)[address] [place], [place] 7578008-01-2025 09:33-0400 Systolic blood isjbnuki379 mm[Hg]Sylvester Ball DO Work Phone: 1(419)[address] [place], [place] 7578008-01-2025 06:19-0400 Body sjiapd77.9 kgBenjamin Ball DO Work Phone: 1419)[address] [place], [place] 7578008-01-2025 06:16-0400 Body zxbiceowlrg58.5 [degF]Sylvester Ball DO Work Phone: 1419)[address] [place], [place] 7578008-01-2025 06:16-0400 Heart npew847 /minBenjamin Ball DO Work Phone: 1419)[address] [place], [place] 7578008-01-2025 06:16-0400 Respiratory rate16 /minBenjamin Ball DO Work Phone: 1419)[address] [place], [place] 7578008-01-2025 06:16-0400 SaO2% (BldA) [Mass fraction]96 %Sylvester Ball DO Work Phone: 1(895)[address] [place], [place] 7578007-29-2025 12:55-0400 Body cpzmty688.48 cmBenjamin Ball DO Work Phone: 1(697)[address] [place], [place] 7578007-15-2025 08:54-0400 Body [degF]Sylvester Ball DO Work Phone: 1(913)[address] [place], [place] 7578007-15-2025 08:54-0400 Diastolic blood twwfvzyv99 mm[Hg]Sylvester Ball DO Work Phone: 1(358)[address] [place], [place] 7578007-15-2025 08:54-0400 Heart tyif511 /minBenjamin Ball DO Work Phone: 1(816)[address] [place], [place] 7578007-15-2025 08:54-0400 Respiratory rate18 /minBenjamin Ball DO Work Phone: 1(167)[address] [place], [place] 7578007-15-2025 08:54-0400 SaO2% (BldA) [Mass fraction]98 %Sylvester Ball DO Work Phone: 1(570)[address] [place], [place] 7578007-15-2025 08:54-0400 Systolic blood vgrsgnxy649 mm[Hg]Sylvester Ball DO Work Phone: 1(586)[address] [place], [place] 7578007-15-2025 06:00-0400 Body jvuprl50.7 kgBenjamin Ball DO Work Phone: 1(543)[address] [place], [place] 7578007-14-2025 14:31-0400 Body ggrzry639.02 cmBenjamin Ball DO Work Phone: 1(052)[address] [place], [place] 7578007-12-2025 07:00-0400 Inhaled oxygen flow rate2 L/minBenjamin Ball DO Work Phone: 1(232)[address] [place], [place] 7578007-11-2025 11:07-0400 Inhaled oxygen zelpgsrfnjyol30 %Sylvester Ball DO Work Phone: 1(713)[address] [place], [place] 7578007-03-2025 16:35-0400 Body yqwwni427.02 cmBenjamin Ball DO Work Phone: 1(419)[address] [place], [place] 7578007-03-2025 16:35-0400 Body gqgdnoygqkw06.6 [degF]Sylvester Ball DO Work Phone: 1(397)[address] [place], [place] 7578007-03-2025 16:35-0400 Body bszanb07.8 kgBenjamin Ball DO Work Phone: 1(338)[address] [place], [place] 7578007-03-2025 16:35-0400 Diastolic blood immerlni19 mm[Hg]Sylvester Ball DO Work Phone: 1(993)[address] [place], [place] 7578007-03-2025 16:35-0400 Heart rate80 /minBenjamin Ball DO Work Phone: 1(227)[address] [place], [place] 7578007-03-2025 16:35-0400 Inhaled oxygen flow rate3 L/minBenjamin Ball DO Work Phone: 1(709)[address] [place], [place] 7578007-03-2025 16:35-0400 Respiratory rate14 /minBenjamin Ball DO Work Phone: 1(636)[address] [place], [place] 7578007-03-2025 16:35-0400 SaO2% (BldA) [Mass fraction]98 %Sylvester Ball DO Work Phone: 1(551)[address] [place], [place] 7578007-03-2025 16:35-0400 Systolic blood bstugret90 mm[Hg]Sylvester Ball DO Work Phone: 1(373)[address] [place], [place] 7578006-23-2025 11:00-0400 Body qzojrl250.5 cmBran Linda MD Work Phone: [facility] HospitalDiwxkisjvc27-76-8883 11:00-0400Body mass index (BMI) [Ratio]28.53 kg/s0IwhqktbBran Linda MD Work Phone: [facility] HospitalXbembktgno41-13-7730 11:00-0400Body bywbnp18.76 kgBran Linda MD Work Phone: [facility] HospitalSckprxtwhs33-95-2989 11:00-0400Diastolic blood rywbugpe22 mm[Hg]Bran Linda MD Work Phone: [facility] HospitalOevtpjiprr42-61-3284 11:00-0400Systolic blood vmegabwc133 mm[Hg]Bran Linda MD Work Phone: [facility] HospitalEhruxlwwal50-45-9950 11:50-0400Body bvamiy127.48 [facility] 11:50-0400Body mass index (BMI) [Ratio]30 kg/i0TivsrxmslC[facility]05-30-2025 11:50-0400Body weight 74.61 kgC[facility]05-30-2025 11:50-0400Diastolic blood hwklfiig81 mm[Hg][facility]05-30-2025 11:50-0400Heart rate73 /[facility]05-30-2025 11:50-0400Respiratory rate12 /[facility]05-30-2025 11:50-0400Systolic blood qrrlswna758 mm[Hg][facility]05-29-2025 10:08-0400Body vjeitw589.5 cmSteven Rusher DPM Work Phone: 1(330)[address] [place], [place] 4569605-29-2025 10:08-0400Body mass index (BMI) [Ratio]28.9 kg/o6Ddkvnq Rusher DPM Work Phone: 1(915)[address]05-29-2025 10:08-0400Body ufztph05.67 kgSteven Rusher DPM Work Phone: 1(282)[address] [place], [place] 4569605-07-2025 14:33-0400Body zzbytk780.5 cmSteven Rusher DPM Work Phone: 1(212)[address] [place], [place] 4569605-07-2025 14:33-0400Body mass index (BMI) [Ratio]28.9 kg/l3Pwejff Rusher DPM Work Phone: 1(986)[address] [place], [place] 4569605-07-2025 14:33-0400Body requyq96.67 kgSteven Rusher DPM Work Phone: 1(738)[address]05-05-2025 10:32-0400Body pdrigw062.48 cmBenjamin Ball DO Work Phone: [facility]05-05-2025 10:32-0400 Body mass index (BMI) [Ratio]29.1 kg/g4Xschsrua Ball DO Work Phone: [facility]05-05-2025 10:32-0400 Body yqfpfk74.29 kgBenjamin Ball DO Work Phone: 1(968)589-05[facility]05-05-2025 10:32-0400 Diastolic blood tuelytwj52 mm[Hg]Sylvester Ball DO Work Phone: 1(715)756-67[facility]05-05-2025 10:32-0400 Heart rate67 /minBenjamin Ball DO Work Phone: 1(766)096-30[facility]05-05-2025 10:32-0400 Respiratory rate12 /minBenjamin Ball DO Work Phone: 1(908)512-[address] [place], [place] 2174005-05-2025 10:32-0400 SaO2% (BldA) [Mass fraction]99 %Sylvester Ball DO Work Phone: 1(415)103-78[facility]05-05-2025 10:32-0400 Systolic blood gzwawmfc105 mm[Hg]Sylvester Ball DO Work Phone: 1(657)550-51[facility]04-21-2025 11:04-0400 Body mass index (BMI) [Ratio]30.11 kg/a8GlefuJacob Mercado MD Work Phone: [facility]04-21-2025 11:04-0400Body temperature 97.39 [degF]Jacob Mercado MD Work Phone: [facility]04-21-2025 11:04-0400Body .7 kgJacob Mercado MD Work Phone: [facility]04-21-2025 11:04-0400Diastolic blood mm[Hg]Jacob Mercado MD Work Phone: [facility]04-21-2025 11:04-0400Heart rate67 /min Jacob Mercado MD Work Phone: [facility]04-21-2025 11:04-0400Respiratory rate 18 /minJacob Mercado MD Work Phone: [facility]04-21-2025 11:04-6121WwO3% (BldA) [Mass fraction]99 %Jacob Mercado MD Work Phone: [facility]04-21-2025 11:04-0400Systolic blood mm[Hg]Jacob Mecrado MD Work Phone: [facility]03-03-2025 13:24-0500Body .48 cmArthur William PA-C Work Phone: [facility]03-03-2025 13:24-0500 Body mass index (BMI) [Ratio]27.7 kg/k0Imxkts William PA-C Work Phone: [facility]03-03-2025 13:24-0500 Body nldeopjzngj35.8 [degF]Romel William PA-C Work Phone: [facility]03-03-2025 13:24-0500 Body iqtwsv69.71 kgArthur William PA-C Work Phone: [facility]03-03-2025 13:24-0500 Diastolic blood rrqcyxlf10 mm[Hg]Romel William PA-C Work Phone: [facility]03-03-2025 13:24-0500 Heart rate80 /minArthur William PA-C Work Phone: [facility]03-03-2025 13:24-0500 Respiratory rate16 /minArthur William PA-C Work Phone: [facility]03-03-2025 13:24-0500 SaO2% (BldA) [Mass fraction]97 %Romel William PA-C Work Phone: [facility]03-03-2025 13:24-0500 Systolic blood siwzqxqo752 mm[Hg]Romel William PA-C Work Phone: [facility]02-27-2025 10:06-0500 Body wfrvme606.48 cmArthur William PA-C Work Phone: [facility]02-27-2025 10:06-0500 Body mass index (BMI) [Ratio]28.5 kg/l8Rfylri William PA-C Work Phone: [facility]02-27-2025 10:06-0500 Body warikp93.76 kgArthur William PA-C Work Phone: 5(705)313-81[facility]02-03-2025 12:00-0500 Diastolic blood elqkhnfm45 mm[Hg]Romel William PA-C Work Phone: 1(729)536-[address] [place], [place] 0677802-03-2025 12:00-0500 Heart rate94 /minArthur William PA-C Work Phone: 1(957)217-[address] [place], [place] 0677802-03-2025 12:00-0500 Respiratory rate17 /minArthur William PA-C Work Phone: [facility]02-03-2025 12:00-0500 SaO2% (BldA) [Mass fraction]98 %Romel William PA-C Work Phone: [facility]02-03-2025 12:00-0500 Systolic blood udbnmash288 mm[Hg]Romel William PA-C Work Phone: [facility]02-03-2025 09:44-0500 Body obxmdaykzgt01 [degF]Romel William PA-C Work Phone: [facility]02-03-2025 06:00-0500 Body ibhyol25 kgArthur William PA-C Work Phone: 7(996)152-56[facility]01-31-2025 14:18-0500 Body .48 cmArthur William PA-C Work Phone: 9(752)975-[address] [place], [place] 0677801-30-2025 11:40-0500 Body tknnyr835.48 Ana Mariartjoshuar William PA-C Work Phone: 2(999)390-[address] [place], [place] 0677801-30-2025 11:40-0500 Body .6 [degF]Romel William PA-C Work Phone: 3(708)024-[address] [place], [place] 0677801-30-2025 11:40-0500 Body pipcjf84.3 kgArthur William PA-C Work Phone: 2(229)[address]01-30-2025 11:40-0500 Diastolic blood vumhugef40 mm[Hg]Romel William PA-C Work Phone: 1(248)[address]01-30-2025 11:40-0500 Heart rate77 /minArthur William PA-C Work Phone: 3(142)563-[address] [place], [place] 0677801-30-2025 11:40-0500 Respiratory rate16 /minArthur William PA-C Work Phone: 8(499)634-[address] [place], [place] 0677801-30-2025 11:40-0500 SaO2% (BldA) [Mass fraction]97 %Romel William PA-C Work Phone: 5(516)[address]01-30-2025 11:40-0500 Systolic blood cmqspnge817 mm[Hg]Romel William PA-C Work Phone: 5(734)912-[address] [place], [place] 0677801-14-2025 14:13-0500 Body eryyda227.9 Hortensia Khan DPM Work Phone: [facility] HospitalCoiqywqgwy08-38-2527 14:13-0500Body mass index (BMI) [Ratio]28.91 kg/c4KomalewMarce Khan DPM Work Phone: [facility] HospitalQlonfiayig02-41-1128 14:13-0500Body cnavgz25.4 kg Marce Khan DPM Work Phone: [facility] HospitalBcxnvikepb53-61-2830 14:00-0500Body garjun527.94 cmArthur William PA-C Work Phone: [facility]01-10-2025 14:00-0500 Body mass index (BMI) [Ratio]29.7 kg/r5Lmggza William PA-C Work Phone: [facility]01-10-2025 14:00-0500 Body awlfei59.32 kgArthur William PA-C Work Phone: 1(469)813-66[facility]01-10-2025 14:00-0500 Diastolic blood acacexwf29 mm[Hg]Romel William PA-C Work Phone: 1(564)967-64[facility]01-10-2025 14:00-0500 Heart rate65 /minArthur William PA-C Work Phone: 1(832)990-[address] [place], [place] 0677801-10-2025 14:00-0500 Respiratory rate12 /minArthur William PA-C Work Phone: 1(364)326-[address] [place], [place] 0677801-10-2025 14:00-0500 Systolic blood pxrvgdko768 mm[Hg]Romel William PA-C Work Phone: 1(677)549-61[facility]01-02-2025 11:16-0500 Body pxfayq337.9 cmBryce Hendrickson MD Work Phone: [facility]01-02-2025 11:16-0500 Body mass index (BMI) [Ratio]28.91 kg/w6ZbkglvBryce Hendrickson MD Work Phone: [facility]01-02-2025 11:16-0500 Body shoejb95.4 kgBryce Hendrickson MD Work Phone: [facility]01-02-2025 11:16-0500 Diastolic blood zqonnrsb85 mm[Hg]Bryce Hendrickson MD Work Phone: [facility]01-02-2025 11:16-0500 Heart rate76 /minBryce Hendrickson MD Work Phone: [facility]01-02-2025 11:16-0500 Systolic blood oxpkxgtd06 mm[Hg]Bryce Hendrickson MD Work Phone: [facility]12-11-2024 14:55-0500 Body wepdxp925.94 cmArthur William PA-C Work Phone: [facility]12-11-2024 14:55-0500 Body mass index (BMI) [Ratio]29 kg/h6Wjcicy William PA-C Work Phone: 1(364)800-[address] [place], [place] 0677812-11-2024 14:55-0500 Body sesytf39.85 kgArthur William PA-C Work Phone: 1(300)630-[address] [place], [place] 0677812-11-2024 14:55-0500 Diastolic blood mm[Hg]Romel William PA-C Work Phone: 1(244)251-[address] [place], [place] 0677812-11-2024 14:55-0500 Heart rate77 /minArthur William PA-C Work Phone: 1(322)083-[address] [place], [place] 0677812-11-2024 14:55-0500 Respiratory rate12 /minArthur William PA-C Work Phone: 1(487)180-[address] [place], [place] 0677812-11-2024 14:55-0500 Systolic blood mm[Hg]Romel William PA-C Work Phone: 1(204)323-[address] [place], [place] 0677812-08-2024 14:00-0500 Diastolic blood goonaanz10 mm[Hg]Romel William PA-C Work Phone: 1(951)224-[address] [place], [place] 0677812-08-2024 14:00-0500 Heart rate86 /minArthur William PA-C Work Phone: 1(390)499-[address] [place], [place] 0677812-08-2024 14:00-0500 Respiratory rate20 /minArthur William PA-C Work Phone: 1(424)309-14[facility]12-08-2024 14:00-0500 SaO2% (BldA) [Mass fraction]99 %Romel William PA-C Work Phone: [facility]12-08-2024 14:00-0500 Systolic blood rdhokxsc607 mm[Hg]Romel William PA-C Work Phone: 1(331)717-[address] [place], [place] 0677812-08-2024 09:00-0500 Body bgisamwypye23.6 [degF]Romel Iwlliam PA-C Work Phone: 1(912)[address]12-08-2024 06:44-0500 Body mpwdpy77.4 kgArthur William PA-C Work Phone: 1(978)[address]2024 19:56-0500 Body iarddl027.21 cmArtjoshuar William PA-C Work Phone: 1(334)[address]12-03-2024 14:25-0500 Body iapmri194.94 cmArthur William PA-C Work Phone: 1(362)[address]12-03-2024 14:25-0500 Body mass index (BMI) [Ratio]28.5 kg/v8Gdqnii William PA-C Work Phone: 1(324)156-[address] [place], [place] 0677812-03-2024 14:25-0500 Body gmjpyl30.66 kgSandeeur William PA-C Work Phone: 5(637)262-93[facility]12-03-2024 14:25-0500 Diastolic blood ceazcbsf17 mm[Hg]Romel William PA-C Work Phone: 1(079)275-[address] [place], [place] 0677812-03-2024 14:25-0500 Heart rate62 /minArthur William PA-C Work Phone: 5(129)919-[address] [place], [place] 0677812-03-2024 14:25-0500 Respiratory rate12 /minArthur William PA-C Work Phone: 7(122)889-13[facility]12-03-2024 14:25-0500 Systolic blood fdkazlua386 mm[Hg]Romel William PA-C Work Phone: [facility]11-06-2024 09:09-0500 Body mrmeag075.9 cmChuck Cope MD Work Phone: [facility] HospitalUjsijjbhbi74-87-0191 09:09-0500Body mass index (BMI) [Ratio]28.91 kg/p9IwpyfuChuck Cope MD Work Phone: [facility] HospitalBnqquscpul20-48-2512 09:09-0500Body jsyhmr30.4 kg Chuck Cope MD Work Phone: 1(013)9738138[facility] HospitalUbancpjser66-01-8678 09:09-0500Diastolic blood uczrscxu58 mm[Hg]Chuck Cope MD Work Phone: [facility] HospitalJjdqqtdfkr58-46-2578 09:09-0500Systolic blood busvtmiv76 mm[Hg]Chuck Cope MD Work Phone: [facility] HospitalQpfslpsdsj91-70-9096 11:04-0400Body .94 cmDO Sylvester Ball Work Phone: 1(674)123[facility]90[facility]10-30-2024 11:04-0400 Body mass index (BMI) [Ratio]28.8 kg/m2DO Sylvester Ball Work Phone: 1(574)327-86[facility]10-30-2024 11:04-0400 Body cgensx60.11 kgDO Sylvester Ball Work Phone: 1(234)242-36[facility]10-30-2024 11:04-0400 Diastolic blood aloteyou05 mm[Hg]DO Sylvester Ball Work Phone: 1(758)867-[address] [place], [place] 2174010-30-2024 11:04-0400 Heart rate62 /minDO Sylvester Ball Work Phone: 1(011)971-85[facility]10-30-2024 11:04-0400 Respiratory rate12 /minDO Sylvester Ball Work Phone: 1(272)224-[address] [place], [place] 2174010-30-2024 11:04-0400 Systolic blood pvjrfsas554 mm[Hg]DO Sylvester Ball Work Phone: 1(766)562-79[facility]10-08-2024 13:08-0400 Body .94 cmDO Sylvester Ball Work Phone: 1(641)358-01[facility]10-08-2024 13:08-0400 Body mass index (BMI) [Ratio]28.3 kg/m2DO Sylvester Ball Work Phone: 1(617)537[facility]85[facility]10-08-2024 13:08-0400 Body eciucp88.03 kgDO Sylvester Ball Work Phone: 1(633)[address]09-17-2024 13:24-0400 Body rwrcla570.9 [facility] [address] [place], [place] [address]16109-17-2024 13:24-0400 Body mass index (BMI) [Ratio]29.66 kg/m2Ely [address] [place] [address] 01-18-2024 13:24-0400Body ipqgcf08.[address] 01-18-2024 13:24-0400Diastolic blood gpjclikg89 mm[Hg][address]09-17-2024 13:24-0400Systolic blood mm[Hg][address]08-20-2024 09:40-0400Diastolic blood lwpunwnr09 mm[Hg]DO Sylvester Ball Work Phone: [phone]08-20-2024 09:40-0400 Heart rate55 /minDO Sylvester Ball Work Phone: [phone]08-20-2024 09:40-0400 SaO2% (BldA) [Mass fraction]99 %DO Sylvester Ball Work Phone: [phone]08-20-2024 09:40-0400 Systolic blood dgkzzzuk940 mm[Hg]DO Sylvester Ball Work Phone: [phone]08-20-2024 09:05-0400 Inhaled oxygen flow rate3 L/minDO Sylvester Ball Work Phone: [phone]08-20-2024 08:01-0400 Body ectccv455.21 cmDO Sylvester Ball Work Phone: [phone]08-20-2024 08:01-0400 Body mwveae49.3 kgDO Sylvester Ball Work Phone: 1(368)[address] [place], [place] 7578008-20-2024 08:01-0400 Respiratory rate16 /minDO Sylvester Ball Work Phone: 1(732)[address] [place], [place] 7578008-12-2024 15:03-0400 Body .94 cmDO Sylvester Ball Work Phone: 1(141)[address] [place], [place] 7578008-12-2024 15:03-0400 Body mass index (BMI) [Ratio]28.8 kg/m2DO Sylvester Ball Work Phone: 1(210)[address] [place], [place] 7578008-12-2024 15:03-0400 Body qigayq00.11 kgDO Sylvester Ball Work Phone: 1(768)[address] [place], [place] 7578008-12-2024 15:03-0400 Diastolic blood fbpaprku70 mm[Hg]DO Sylvester Ball Work Phone: 1(939)[address] [place], [place] 7578008-12-2024 15:03-0400 Heart rate73 /minDO Sylvester Ball Work Phone: 1(886)[address] [place], [place] 7578008-12-2024 15:03-0400 Respiratory rate12 /minDO Sylvester Ball Work Phone: 1(977)[address] [place], [place] 7578008-12-2024 15:03-0400 Systolic blood yayzmrco17 mm[Hg]DO Sylvester Ball Work Phone: 1(639)[address] [place], [place] 7578007-24-2024 10:50-0400 Body .94 cmDO Sylvester Ball Work Phone: 1(501)[address] [place], [place] 7578007-24-2024 10:50-0400 Body mass index (BMI) [Ratio]29.5 kg/m2DO Sylvester Ball Work Phone: 1(908)[address] [place], [place] 7578007-24-2024 10:50-0400 Body gqkcae32 kgDO Sylvester Ball Work Phone: 1(724)[address] [place], [place] 7578007-01-2024 13:04-0400 Body zvacir136.94 cmDO Sylvester Ball Work Phone: 1(161)[address]07-01-2024 13:04-0400 Body mass index (BMI) [Ratio]29.6 kg/m2DO Sylvester Ball Work Phone: 1(157)30[address]07-01-2024 13:04-0400 Body .21 kgDO Sylvester Ball Work Phone: 1(248)[address]07-01-2024 13:04-0400 Diastolic blood jfqfcixz07 mm[Hg]DO Sylvester Ball Work Phone: 1(532)[address] [place], [place] 7578007-01-2024 13:04-0400 Heart rate66 /minDO Sylvester Ball Work Phone: 1(552)[address]07-01-2024 13:04-0400 SaO2% (BldA) [Mass fraction]100 %DO Sylvester Ball Work Phone: 1(372)[address] [place], [place] 7578007-01-2024 13:04-0400 Systolic blood mnuyijrw821 mm[Hg]DO Sylvester Ball Work Phone: 1(695)[address] [place], [place] 7578006-18-2024 10:10-0400 Body mhiaip384.94 cmDO Sylvester Ball Work Phone: 1(121)[address]06-18-2024 10:10-0400 Body mass index (BMI) [Ratio]29.5 kg/m2DO Sylvester Ball Work Phone: 1(425)[address] [place], [place] 7578006-18-2024 10:10-0400 Body xacvee35.93 kgDO Sylvester Ball Work Phone: 1(782)[address]05-14-2024 15:14-0400 Body .94 cmDO Sylvester Ball Work Phone: 1(959)[address] [place], [place] 7578005-14-2024 15:14-0400 Body mass index (BMI) [Ratio]28.7 kg/m2DO Sylvester Ball Work Phone: 1(925)[address]05-14-2024 15:14-0400 Body cwaobw02 kgDO Sylvester Ball Work Phone: 1(407)[address]05-14-2024 15:14-0400 Diastolic blood yjlrvicv56 mm[Hg]DO Sylvester Ball Work Phone: 1419)[address]05-14-2024 15:14-0400 Heart rate65 /minDO Sylvester Ball Work Phone: 1419)220-[address] [place], [place] 2174005-14-2024 15:14-0400 Respiratory rate12 /minDO Sylvester Ball Work Phone: [phone])651-[address] [place], [place] 2174005-14-2024 15:14-0400 Systolic blood tixywhrg519 mm[Hg]DO Sylvester Ball Work Phone: 1419)[address] [place], [place] 7578005-07-2024 08:57-0400 Diastolic blood jfjibwdm16 mm[Hg]DO Sylvester Ball Work Phone: 1419)[address] [place], [place] 7578005-07-2024 08:57-0400 Heart rate64 /minDO Sylvester Ball Work Phone: 1419)[address] [place], [place] 7578005-07-2024 08:57-0400 Respiratory rate16 /minDO Sylvester Ball Work Phone: 1419)[address] [place], [place] 7578005-07-2024 08:57-0400 SaO2% (BldA) [Mass fraction]98 %DO Sylvester Ball Work Phone: 1(918)[address] [place], [place] 7578005-07-2024 08:57-0400 Systolic blood khcotdpn224 mm[Hg]DO Sylvester Ball Work Phone: 1(419)[address] [place], [place] 7578005-07-2024 08:21-0400 Inhaled oxygen flow rate3 L/minDO Sylvester Ball Work Phone: [address] [place], [place] 7578005-07-2024 07:26-0400 Body agfbpz772.94 cmDO Sylvester Ball Work Phone: 1(327)[address]05-07-2024 07:26-0400 Body zuclvn16.21 kgDO Sylvester Ball Work Phone: 1(908)[address] [place], [place] 7578003-19-2024 10:36-0400 Body fpnork211.94 [facility]24 10:36-0400Body mass index (BMI) [Ratio]29.8 kg/y8AkanbdnwyC[facility] Clinic03-19-2024 10:36-0400Body tcopdu38.66 kgC[facility]03-14-2024 10:39-0400Body qbgjyc926.9 cmBryce Hendrickson MD Work Phone: 1(031)979-[address] [place], [place] 2076903-14-2024 10:39-0400 Body mass index (BMI) [Ratio]29.66 kg/h0ZultaqBryce Hendrickson MD Work Phone: 1(927)807-[address] [place], [place] 2076903-14-2024 10:39-0400 Body mbtxva89.22 kgBryce Hendrickson MD Work Phone: 1(802)[address]03-14-2024 10:39-0400 Diastolic blood mgtcrywo40 mm[Hg]Bryce Hendrickson MD Work Phone: 1(285)[address] [place], [place] 2076903-14-2024 10:39-0400 Heart rate64 /minBryce Hendrickson MD Work Phone: 9(501)903-[address] [place], [place] 2076903-14-2024 10:39-0400 Systolic blood ktuitnyt592 mm[Hg]Bryce Hendrickson MD Work Phone: 1(505)539-[address] [place], [place] 2076902-20-2024 13:28-0500 Body xxjply711.5 cmJacob Mercado MD Work Phone: [facility]02-20-2024 13:28-0500Body temperature 97.59 [degF]Jacob Mercado MD Work Phone: [facility]02-20-2024 13:28-0500Body .6 kgJacob Mercado MD Work Phone: [facility]02-20-2024 13:28-0500Diastolic blood hdcnfyii60 mm[Hg]Jacob Mercado MD Work Phone: [facility]02-20-2024 13:28-0500Heart rate67 /min Jacbo Mercado MD Work Phone: [facility]02-20-2024 13:28-050Respiratory rate 16 /minJacob Mercado MD Work Phone: [facility]02-20-2024 13:28-2189SfK4% (BldA) [Mass fraction]96 %Jacob Mercado MD Work Phone: [facility]02-20-2024 13:28-0500Systolic blood mm[Hg]Jacob Mercado MD Work Phone: [facility]02-19-2024 10:54-0500Body .94 cmDO [employer] Work Phone: [facility]02-19-2024 10:54-0500 Body mass index (BMI) [Ratio]29.5 kg/m2DO [employer] Work Phone: [facility]02-19-2024 10:54-0500 Body cowtsb53.93 kgDO Sylvester [employer] Work Phone: [facility]01-24-2024 10:40-0500 Body ocdlpx038.94 cmJessica [employer] Other [facility]01-24-2024 10:40-0500 Body mass index (BMI) [Ratio]30.04 kg/y9Htkckvy [employer] Other [employer] Other 18-903702-13200931-24-5142 10:40-0500Body tswhmo91.12 kgJessica [employer] Other [facility]12-28-2023 14:00-0500 Body .94 cmBeantoninaITeam Other [facility]12-28-2023 14:00-0500 Body mass index (BMI) [Ratio]30.15 kg/g1Bhhlkwez Ball Other [employer] Other 12-28-2023 14:00-0500Body emxvtu30.39 kgBenjamin Ball Other [facility]12-28-2023 14:00-0500 Diastolic blood plclajxb41 mm[Hg]Sylvester Ball Other [facility]12-28-2023 14:00-0500 Systolic blood adkyzplj536 mm[Hg]Sylvester Ball Other [facility]12-26-2023 11:00-0500 Body zspxip413.94 cmDale Moreau Other [facility]12-26-2023 11:00-0500 Body mass index (BMI) [Ratio]29.66 kg/m2Dalela Moreau Other [employer] Other 12-26-2023 11:00-0500Body namemb55.22 kgDale Moreau Other [employer] Other 12-26-2023 11:00-0500Body lczsul34.21 kgDO Sylvester Ball Work Phone: 6(252)686-59[facility]12-19-2023 11:34-0500 Diastolic blood txyushxm63 mm[Hg]DO Sylvester Ball Work Phone: 1(710)213-06[facility]12-19-2023 11:34-0500 Systolic blood hudxaiwa072 mm[Hg]DO Sylvester Ball Work Phone: 1(479)178-49[facility]12-19-2023 06:13-0500 Body oycwxtwaxho62.4 [degF]DO Sylvester Ball Work Phone: 1(558)665-20[facility]12-19-2023 06:13-0500 Body kemhke05 kgDO Sylvester Ball Work Phone: 1(816)432-26[facility]12-19-2023 06:13-0500 Heart rate84 /minDO Sylvester Ball Work Phone: 1(215)214-65[facility]12-19-2023 06:13-0500 Respiratory rate18 /minDO Sylvester Ball Work Phone: 1(356)[address]12-19-2023 06:13-0500 SaO2% (BldA) [Mass fraction]99 %DO Sylvester Ball Work Phone: 1(011)[address]12-15-2023 08:45-0500 Body yuyyby897.94 cmDO Sylvester Ball Work Phone: 1(599)43806 [address]12-14-2023 11:35-0500 Body lnhguvbknfr30.7 [degF]DO Sylvester Ball Work Phone: 1(116)[address] [place], [place] 7578012-14-2023 11:35-0500 Diastolic blood tlpiexjp83 mm[Hg]DO Sylvester Ball Work Phone: 1(865)[address] [place], [place] 7578012-14-2023 11:35-0500 Heart rate71 /minDO Sylvester Ball Work Phone: 1(807)[address] [place], [place] 7578012-14-2023 11:35-0500 Respiratory rate12 /minDO Sylvester Ball Work Phone: 1(628)920-[address] [place], [place] 2174012-14-2023 11:35-0500 SaO2% (BldA) [Mass fraction]100 %DO Sylvester Ball Work Phone: 1(000)[address] [place], [place] 7578012-14-2023 11:35-0500 Systolic blood jyrvuwby91 mm[Hg]DO Sylvester Ball Work Phone: 1(752)[address] [place], [place] 7578012-14-2023 06:00-0500 Body thlkif15 kgDO Sylvester Ball Work Phone: 1(842)[address] [place], [place] 7578012-12-2023 10:50-0500 Inhaled oxygen flow rate2 L/minDO Sylvester Ball Work Phone: 1(144)[address] [place], [place] 7578012-12-2023 06:58-0500 Body .21 cmDO Sylvester Ball Work Phone: 1(652)[address] [place], [place] 7578012-12-2023 06:58-0500 Body mass index (BMI) [Ratio]28.8 kg/m2DO Sylvester Ball Work Phone: 1(419)[address] [place], [place] 7578012-08-2023 07:17-0500 Body .21 cmDO Sylvester Ball Work Phone: 1(034)[address] [place], [place] 7578012-08-2023 07:17-0500 Body mass index (BMI) [Ratio]28.7 kg/m2DO Sylvester Ball Work Phone: 1(996)[address] [place], [place] 7578012-08-2023 07:17-0500 Body ikohvk98 kgDO Sylvester Ball Work Phone: 1(868)[address] [place], [place] 7578012-08-2023 05:55-0500 Body jzafqhxbhww73.6 [degF]DO Sylvester Ball Work Phone: 1(126)[address] [place], [place] 7578012-08-2023 05:55-0500 Diastolic blood ymvkrgsi41 mm[Hg]DO Sylvester Ball Work Phone: 1(311)[address] [place], [place] 7578012-08-2023 05:55-0500 Heart rate63 /minDO Sylvester Ball Work Phone: 1(375)[address] [place], [place] 7578012-08-2023 05:55-0500 Respiratory rate18 /minDO Sylvester Ball Work Phone: 1(058)[address] [place], [place] 7578012-08-2023 05:55-0500 SaO2% (BldA) [Mass fraction]100 %DO Sylvester Ball Work Phone: 1(175)[address] [place], [place] 7578012-08-2023 05:55-0500 Systolic blood detwfgkx792 mm[Hg]DO Sylvester Ball Work Phone: 1(389)[address] [place], [place] 7578011-16-2023 10:58-0500 Body .9 cmBryce Hendrickson MD Work Phone: [facility]11-16-2023 10:58-0500 Body mass index (BMI) [Ratio]29.48 kg/u2GolfbfBryce Hendrickson MD Work Phone: [facility]11-16-2023 10:58-0500 Body izrtuk42.76 kgBryce Hendrickson MD Work Phone: 1(440)414-[address] [place], [place] 2076911-16-2023 10:58-0500 Diastolic blood foankwrr32 mm[Hg]Bryce Hendrickson MD Work Phone: 0(274)708-[address] [place], [place] 2076911-16-2023 10:58-0500 Heart rate62 /minBryce Hendrickson MD Work Phone: 2(915)164-[address] [place], [place] 2076911-16-2023 10:58-0500 Systolic blood uafotwgm991 mm[Hg]Bryce Hendrickson MD Work Phone: 5(167)591-[address] [place], [place] 2076911-08-2023 11:00-0500 Body .94 cmRadha Moreau Other [employer] Other 021006-07-2854 11:00-0500Body mass index (BMI) [Ratio] 29.21 kg/a5FdgugrRadha Moreau Other [employer] Other 11-08-2023 11:00-0500Body .13 kgRadha Moreau Other [employer] Other 11-08-2023 11:00-0500Diastolic blood qyjueuxt38 mm[Hg] Radha Moreau Other [employer] Other 11-08-2023 11:00-0500Systolic blood uuuqwlqg061 mm[Hg] Radha Moreau Other [employer] Other [id number] 10:00-0400Body .5 cmBryce Hendrickson MD Work Phone: 5(973)850-[address] [place], [place] 2076910-31-2023 10:00-0400 Body mass index (BMI) [Ratio]28.35 kg/v5NtyizuBryce Hendrickson MD Work Phone: 3(598)572-[address] [place], [place] 2076910-31-2023 10:00-0400 Body plljyl10.31 kgBryce Hendrickson MD Work Phone: [facility]10-31-2023 10:00-0400 Diastolic blood eutwvsdd51 mm[Hg]Bryce Hendrickson MD Work Phone: [facility]10-31-2023 10:00-0400 Heart rate68 /minBryce Hendrickson MD Work Phone: [facility]10-31-2023 10:00-0400 Systolic blood nzysujne773 mm[Hg]Brcye Hendrickson MD Work Phone: [facility]10-26-2023 10:20-0400 Body awzyae840.94 cmDalela Moreau Other [employer] Other 10-26-2023 10:20-0400Body mass index (BMI) [Ratio] 29.66 kg/m2Dalela Moreau Other [employer] Other 10-26-2023 10:20-0400Body ihqque59.22 kgDale Moreau Other [employer] Other 09-21-2023 09:20-0400Body vomlgn624.94 cmDale Moreau Other [employer] Other Phone: [phone] 09:20-0400Body mass index (BMI) [Ratio] 29.09 kg/m2Dalela Moreau Other [employer] Other 09-21-2023 09:20-0400Body mdvvsa26.85 kgDale Moreau Other [employer] Other 09-21-2023 09:20-0400Diastolic blood qwegttvs12 mm[Hg] Devin Moreau Other [employer] Other 09-21-2023 09:20-0400Systolic blood dyyezaxr696 mm[Hg] Devin Moreau Other [employer] Other 09-07-2023 08:45-0400Body mrejgf895.94 cmBenjamin Ball Other [employer] Other 09-07-2023 08:45-0400Body mass index (BMI) [Ratio] 29.51 kg/g4Kcqxtvbe Ball Other [employer] Other 09-07-2023 08:45-0400Body nyisar15.85 kgBenjamin Ball Other [employer] Other 09-07-2023 08:45-0400Diastolic blood ztngxwul73 mm[Hg] Sylvester Ball Other [employer] Other 09-07-2023 08:45-0400Respiratory rate12 /minBenjamin Ball Other [employer] Other 09-07-2023 08:45-0400Systolic blood bkwetqmu991 mm[Hg] Sylvester Ball Other [employer] Other 03-16-2023 11:30-0400Body .94 cmBenjamin Ball Other [employer] Other 03-16-2023 11:30-0400Body mass index (BMI) [Ratio] 28.04 kg/u2Tnrawbfe Ball Other [employer] Other 03-16-2023 11:30-0400Body xgmxag94.31 kgBenjamin Ball Other [employer] Other 03-16-2023 11:30-0400Diastolic blood xshcyywh04 mm[Hg] Sylvester Jacob Other [facility] [place] Other 03-16-2023 11:30-0400Respiratory rate12 /minBenhaseeb Jacob Other [facility] [place] Other 03-16-2023 11:30-0400Systolic blood himaoagh747 mm[Hg] Sylvester Jacob Other [facility] [place] Other 02-21-2023 14:40-0500Body vwzonv229.94 cmDale Moreau Other [employer] Other 02-21-2023 14:40-0500Body mass index (BMI) [Ratio] 31.36 kg/m2Dalela Moreau Other [employer] Other 02-21-2023 14:40-0500Body zywaqd45.3 kgDale Moreau Other [employer] Other 02-08-2023 12:00-470079 1Benhaseeb Jacob Work Phone: 1(921) [phone][facility] Work Phone: Comment on above:[id number] 13:19-0500Body vabrul658.5 cmJacob Mercado MD Work Phone: [facility]01-17-2023 13:19-0500Body temperature 97.39 [degF]Jacob Mercado MD Work Phone: [facility]01-17-2023 13:19-0500Body oufflv59.22 kgJacob Mercado MD Work Phone: [facility]01-17-2023 13:19-0500Diastolic blood xudnbhbq12 mm[Hg]Jacob Mercado MD Work Phone: [facility]01-17-2023 13:19-0500Heart rate66 /min Jacob Mercado MD Work Phone: [facility]01-17-2023 13:19-0500Respiratory rate 18 /minJacob Mercado MD Work Phone: [facility]01-17-2023 13:19-1051NpX1% (BldA) [Mass fraction]97 %Jacob Mercado MD Work Phone: [facility]01-17-2023 13:19-0500Systolic blood vtutrjnz429 mm[Hg]Jacob Mercado MD Work Phone: [facility]01-12-2023 14:20-0500Body djeyve281.94 cmKIT digitalica [employer] Other [employer] [place] Other 01-12-2023 14:20-0500Body mass index (BMI) [Ratio] 31.36 kg/k5Itpweth [employer] Other [employer] Other 01-12-2023 14:20-0500Body hquwen98.3 kgKreditsssica [employer] Other [employer] Other 01-10-2023 11:27-0500Body higzjo532.94 cmBenjamin E Ball Work Phone: [phone]-Hxymi [place] [employer] 250 DO Work Phone: 1(342) 416-239401-10-2023 11:27-0500Body mass index (BMI) [Ratio] 29.67 kg/k6Hxtkljqe E Ball Work Phone: mp269-3214LG-Wclcl [place] [employer] 250 DO Work Phone: 1(642) 947-588801-10-2023 11:27-0500Body surface area Derived from formula1.7 e0Ttcjrwfo E Ball Work Phone: mp782-5347VB-Hnzmg [place] [employer] 250 DO Work Phone: 1(379) 196-390601-10-2023 11:27-0500Body zwnlul14.22 kgBenjamin E Ball Work Phone: mp545-1998NV-Vryio [place] [facility] 250 DO Work Phone: 1(986) 934-964101-10-2023 11:27-0500Diastolic blood mm[Hg] Sylvester E Ball Work Phone: mp314-8656JP-Utygs [place] [facility] 250 DO Work Phone: 1(304) 982-198701-10-2023 11:27-0500Heart rate72 /minBenjamin E Ball Work Phone: mp804-6256AZ-Cwdrx [place] [facility] 250 DO Work Phone: 1(377) 239-463701-10-2023 11:27-0500Systolic blood ufteofil519 mm[Hg] Sylvester E Ball Work Phone: mp780-0302HA-QccmaMayo Clinic Hospitalusky 250 DO Work Phone: 1(370) 925-723211-30-2022 07:54-0500Body goecexjluvo93.1 [degF]DO Sylvester Ball Work Phone: 1(009)778-68[facility]11-30-2022 07:54-0500 Diastolic blood emqxllbe38 mm[Hg]DO Sylvester Ball Work Phone: 1(560)573-30[facility]11-30-2022 07:54-0500 Heart rate75 /minDO Sylvester Ball Work Phone: [facility]11-30-2022 07:54-0500 Respiratory rate16 /minDO Sylvester Ball Work Phone: [facility]11-30-2022 07:54-0500 SaO2% (BldA) [Mass fraction]98 %DO Sylvester Ball Work Phone: [facility]11-30-2022 07:54-0500 Systolic blood mm[Hg]DO Sylvester Ball Work Phone: [facility]11-30-2022 04:13-0500 Body lfulgj85.8 kgDO Sylvester Ball Work Phone: [facility]11-29-2022 00:09-0500 Inhaled oxygen igancawfdkrms78 %DO Sylvester Ball Work Phone: 1(538)[phone]11-28-2022 16:00-0500 Inhaled oxygen flow rate2 L/minDO Sylvester Ball Work Phone: 1(671)749-60[facility]11-28-2022 08:58-0500 Body bupvyr529.21 cmDO Sylvester Ball Work Phone: 1(880)179-47[facility]11-28-2022 08:58-0500 Body mass index (BMI) [Ratio]29.6 kg/m2DO Sylvester Ball Work Phone: 1(572)492-16[facility]10-11-2022 08:39-0400 Body .94 cmBenjamin E Ball Work Phone: 1(384) [phone]-[facility]dzioM[facility] Hospitalk 600 DO Work Phone: 1(951)[phone] 08:39-0400Body mass index (BMI) [Ratio] 30.42 kg/y2Frxibsxg E Ball Work Phone: 1(956) [phone]-TftjrMille Lacs [facility] On[facility] Hospitalk 600 DO Work Phone: 1(383) 636-159210-11-2022 08:39-0400Body surface area Derived from formula1.72 w1Ivmlbgxk E Ball Work Phone: 1(289) [phone]-ZayneMille Lacs Health [facility] On[facility] Hospitalk 600 DO Work Phone: 1(670)879-200-414067-22 08:39-0400Body sppykp71.03 kgBenjamin E Ball Work Phone: 1(343) [phone]-FfcklM [facility] Centerwalk 600 DO Work Phone: 1(425) 371-263410-11-2022 08:39-0400Diastolic blood hybzupwq29 mm[Hg] Sylvester E Ball Work Phone: 1(231) [phone]-AsdsjM [facility] Centerwalk 600 DO Work Phone: 1(966) 508-570210-11-2022 08:39-0400Heart rate62 /minBenjamin E Ball Work Phone: mp413-2045CZ-Sfucd [place] [employer] 600 DO Work Phone: 1(284) 533-608510-11-2022 08:39-0400Systolic blood oqjchqsc872 mm[Hg] Sylvester E Ball Work Phone: mp831-9095XY-Kefvm [place] [employer] 600 DO Work Phone: 1(364) 991-211909-20-2022 12:40-0400Body .94 cmDale Moreau Other [employer] Other 09-20-2022 12:40-0400Body mass index (BMI) [Ratio] 31.36 kg/m2Dale Moreau Other [employer] Other 09-20-2022 12:40-0400Body julyod75.3 kgDale Moreau Other [employer] Other 08-30-2022 10:00-0400Body tazlyz933.94 cmDale Moreau Other [employer] Other 08-30-2022 10:00-0400Body mass index (BMI) [Ratio] 31.36 kg/m2Dale Moreau Other [employer] Other 08-30-2022 10:00-0400Body .3 kgDale Moreau Other [employer] Other 07-05-2022 12:00-0400Body .94 cmDale Moreau Other [employer] Other 07-05-2022 12:00-0400Body mass index (BMI) [Ratio] 31.17 kg/m2Dale Moreau Other [employer] Other 07-05-2022 12:00-0400Body mzcyzn97.84 kgDale Moreau Other [employer] Other 06-09-2022 11:59-0400Body ggowiqsqscn17.2 [degF]DO Sylvester Ball Work Phone: 1(022)[phone]06-09-2022 11:59-0400 Diastolic blood amylgufo63 mm[Hg]DO Sylvester Ball Work Phone: [phone](330)[phone]06-09-2022 11:59-0400 Heart rate73 /minDO Sylvester Ball Work Phone: 1(328)524-[address] [place], [place] 2174006-09-2022 11:59-0400 Respiratory rate13 /minDO Sylvester Ball Work Phone: 1(035)031-[address] [place], [place] 2174006-09-2022 11:59-0400 SaO2% (BldA) [Mass fraction]99 %DO Sylvester Ball Work Phone: 1(338)316-[address] [place], [place] 2174006-09-2022 11:59-0400 Systolic blood ewnsmejo972 mm[Hg]DO Sylvester Ball Work Phone: 1(608)525-[address] [place], [place] 2174006-09-2022 04:55-0400 Body kgDO Sylvester Ball Work Phone: 1(776)854-[address] [place], [place] 2174006-08-2022 14:14-0400 Inhaled oxygen flow rate8 L/SalenaO Sylvester Ball Work Phone: 1(266)087-[address] [place], [place] 2174006-08-2022 12:02-0400 Body mass index (BMI) [Ratio]30.8 kg/m2DO Sylvester Ball Work Phone: [phone](244)[phone]06-08-2022 11:59-0400 Body fbzoat603.02 cmDO Sylvester Ball Work Phone: [phone](603)560-42[facility]04-07-2022 16:20-0400 Body ukqrbv537.94 cmDale Moreau Other [employer] Other 04-07-2022 16:20-0400Body mass index (BMI) [Ratio] 31.17 kg/m2Dale Moreau Other [place] Other 04-07-2022 16:20-0400Body ikjkhe05.84 kgDale Moreau Other [facility] [place] Other Encounters Encounter DateEncounter TypeCare ProviderFacilityStart: 03-07-2025 End: 45-18-2472Dpkfct outpatient new 20 minutesNnamdi Bee MD Work Phone: [facility] MatherComment on above: Severe mitral regurgitation (Primary Dx)Start: 03-07-2025 End: 92-71-9666qfhckcggpzRCYEO R EAPENSycamore Medical Centertart: 03-05-2025 End: 06-68-8953Piccdejulia Encarnacion DO Work Phone: [facility] EyeStart: 03-05-2025 End: 69-56-3336Isnfvealec Encarnacion DO Work Phone: [facility] EyeStart: 03-05-2025 End: 09-69-1985ncdzevsmgvDOMKHRKOEan Her AvailableStart: 02-19-2025 End: 94-60-5881Zrnbvvlwng hospital visit by Joaquin [facility] Echo/Vasc Room [address] [place], [place] [address]Comment on above:Mitral valve insufficiency, unspecified etiology; Left ventricular systolic dysfunctionStart: 02-19-2025 End: 34-66-3370kzcylxecpdSGZHMM M [facility] Centertart: 02-12-2025 End: 18-84-5741Mosfpo outpatient visit 15 minutesDick PEREZ Work Phone: NOWY [facility] OrthopaedicsComment on above:Acute pain of right shoulder (Primary Dx); Rotator cuff arthropathy of right shoulder; Subacromial impingement of right shoulderStart: 02-12-2025 End: 12-19-6298omzncmnkdcOISVUEN J MEYERNot AvailableStart: 02-12-2025 End: 86-21-5800Sopnjy flowsheetDick PEREZ Work Phone: [facility]Start: 02-12-2025 End: 68-46-3572Nfnicv Yves PEREZ Work Phone: [facility]icsStart: 01-30-2025 End: 17-10-7582Qqmdkz outpatient visit 25 minutesBryce Hendrickson MD Work Phone: [facility]Comment [facility]:Mitral valve insufficiency, unspecified etiology (Primary Dx); Left ventricular systolic dysfunction; Essential hypertension; LBBB (left bundle branch block); BMI 28.0-28.9,adult; Never smoked tobacco; Stage 3a chronic kidney disease (Multi)Start: 01-30-2025 End: 95-68-2270nwiwdvyhewFDVRFH [facility]ulatoryStart: 01-15-2025 End: 66-17-6003nlgibaspjjZptptwmm Nidia DO Work Phone: [facility] Work Phone: Start: 01-15-2025 End: 84-44-5706Yjcjbjy encounter procedureBereal Nidia DO-[facility] Work Phone: Start: 01-11-2025 End: 33-64-3811Cpncwwa encounter procedureDanyelle Mathews MD-[facility] Work Phone: Start: 01-11-2025 End: 72-29-1760lkgvjbvcyjVhyyhash Ball DO Work Phone: [facility] Work Phone: Start: 98-84-3065Enb-patient / Non-visitCatherine Wm JOSHI-[facility] Work Phone: Start: 15-76-5422Brf-patient / Non-visitBenhaseeb Ball DO-[facility] Work Phone: Start: 74-68-9243Dqo-patient / Non-visitSylvester Jacob DO-[facility] Work Phone: Start: 52-33-3131Njb-patient / Non-visitChristian Heriberto Palacios MD-[facility] Work Phone: Start: 13-60-4111Vsm-patient / Non-visitChristian Heriberto Palacios MD-[facility] Work Phone: Start: 97-68-5407Jzr-patient / Non-visitMarley Mendieta APRN-[facility] Work Phone: Start: 11-14-2024 End: 10-89-2097Jrwzikvkse and management of inpatientSylvester Jacob [facility]: 19-27-9202Ujf-patient / Non-visitGeorge Jayce Juan MD-[facility] Work Phone: Start: 11-02-2024 End: 55-87-8870Rljyqyqeyx and management of inpatientJosh Sosa MD-[address] [place] [address] Critical Care Work Phone: Start: 26-76-5520Kyc-patient / Non-visitSin Martinez MD-[facility] Work Phone: Start: 10-23-2024 End: 58-33-5505Tnvfre Julianna Linda MD Work Phone: noms BM NEUROLOGYStart: 10-23-2024 End: 34-25-1086Fkvuij flowsJos Linda MD Work Phone: noms BM NEUROLOGYStart: 10-23-2024 End: 94-55-3204Ihkjpg outpatient new 45 minutesBran Linda MD Work Phone: noms SWS NEURComment on above:Bilateral carpal tunnel syndrome (Primary Dx); Idiopathic progressive neuropathyStart: 10-23-2024 End: 60-05-8870lwlywiodqpIQSFMYU W BAUERNot AvailableStart: 13-28-3245Prt- patient / Non-visitBepariskaroline Jacob -[facility] Work Phone: Start: 09-29-2024 End: 27-69-0901fpugqzdannKzdqqwybhWVUMedicine [facility] Work Phone: Start: 09-29-2024 End: 92-38-2396Fbctzax encounter procedureNorth Carolina Specialty Hospital Physician GroupUniversity [facility]als [facility] Work Phone: Start: 09-28-2024 End: 15-03-3244Dheire flowsheetSteven A Rusher DPM Work Phone: noms PODIATRYStart: 09-28-2024 End: 16-21-8091Ztjhkz flowsheetSteven A Rusher DPM Work Phone: noms PODIATRYStart: 09-28-2024 End: 13-17-7928lfvlgrduerXZYPHW A RUSHERNot AvailableStart: 09-28-2024 End: 39-34-3956Kaycgg outpatient visit 25 minutesSteven A Rusher DPM Work Phone: noms PODIATRYComment on above:Osteoarthritis of midtarsal joint of left foot (Primary Dx); Capsulitis of left foot; Pain in joint of left foot; Pain and swelling of toe of left foot; Difficulty walkingStart: 09-28-2024 End: 23-40-7302nhnocngczkCPWOBX A RUSHERNot AvailableStart: 09-06-2024 End: 58-35-2765Aapbazk encounter procedureSteven A Rusher DPM Work Phone: noms PODIATRYComment on above:Dermatophytosis of nail (Primary Dx); Dystrophic nail; Pain around toenail, right foot; Pain around toenail, left footStart: 09-06-2024 End: 83-08-7473swfvtgytjhZMOWLD A RUSHERNot AvailableStart: 09-06-2024 End: 49-82-7559Dkxrwf flowsheetSteven A Rusher DPM Work Phone: noms PODIATRYStart: 09-06-2024 End: 55-84-4512Lxgnkv flowsheetSteven A Rusher DPM Work Phone: NONE PODIATRYStart: 67-52-1697Qdo-patient / Non-visitNorth Carolina Specialty Hospital Physician GroupQuincy [facility] Professional [facility] Work Phone: Start: 09-04-2024 End: 76-48-6268zmrlojawmeWzvyormg Ball DO Work Phone: [facility] Work Phone: Start: 09-04-2024 End: 30-71-4524Ctscdtc encounter procedureBeantoninahaseeb Jacob DO Work Phone: [facility] GroupD[facility] Work Phone: Start: 08-21-2024 End: 13-51-5882Jgajbom encounter procedureJacob Mercado MD Work Phone: Hematology/OncologyStart: 08-21-2024 End: 41-01-5615ztuiolyqodTtcqf R Murphy MD Work Phone: Hematology/OncologyComment on above:Malignant neoplasm of upper-outer quadrant of left breast in female, estrogen receptor negative (HCC) (Primary Dx)Start: 08-07-2024 End: 69-75-3004SevnezSgmto R Murphy MD Work Phone: Hematology/OncologyComment on above:Refill Request Start: 07-24-2024 End: 42-70-6377mbuzzursqmUnhlxamo Ball DO Work Phone: [facility] Work Phone: Start: 07-24-2024 End: 50-48-6267Ddsuspv encounter procedureBeantoninahaseeb Jacob DO Work Phone: [facility] GroupSelect [facility] Work Phone: Start: 07-03-2024 End: 91-36-2358Lztsbtwsn encounterHilary H Timmis MD Work Phone: NOZT CI ENTComment on above:cancel fu appt for ct scan not doneStart: 07-03-2024 End: 46-06-6913qrezyigxdnHuwilp J Myers PA-C Work Phone: [facility] Work Phone: Start: 07-03-2024 End: 64-30-9669Vyxesbs encounter procedureRomel William PA-C Work Phone: [facility] Work Phone: Start: 06-29-2024 End: 04-26-2468wrsneqweuxVfvsstHeena William PA-C Work Phone: [facility] Work Phone: Start: 06-29-2024 End: 30-26-1752Vzxokpj encounter procedureRomel William PA-C Work Phone: [facility] Work Phone: Start: 06-29-2024 End: 52-54-8483Ddrmojr encounter procedureRomel William PA-C Work Phone: [facility] Start: 06-29-2024 End: 82-45-5842ytwrqwuhvoDqzivk J Myers PA-Edgar Work Phone: [facility] Work Phone: Start: 16-60-9581Sjc-patient / Non-visitRomel PEREZ-C Work Phone: [facility] Work Phone: Start: 21-36-0005Cts-patient / Non-visitBenhaseeb Ball DO Work Phone: [facility] Work Phone: Start: 20-87-9936Kvt-patient / Non-visitSandeefrancheska William PA-C Work Phone: [facility] GroupSelect [facility] Work Phone: Start: 42-56-4467Ijb-patient / Non-visitSandeeur William PA-C Work Phone: [facility] Work Phone: Start: 12-58-9000Ygj-patient / Non-visitArthur William PA-C Work Phone: [facility] Work Phone: Start: 06-01-2024 End: 08-89-9783Cuiwiiwhko and management of inpatientRomel William PA-C Work Phone: [facility] [place] [facility] Work Phone: Start: 05-29-2024 End: 40-50-8624nztizserxoMTQFHSCE D ZAHLERNot AvailableStart: 05-29-2024 End: 80-66-4646Qiteox Cherelle Encarnacion DO Work Phone: noms OPHTStart: 05-29-2024 End: 00-41-2082Gmicac Cherelle Encarnacion DO Work Phone: noms OPHTStart: 05-16-2024 End: 63-99-1804Mywuaz outpatient visit 15 minutesAnthnicolette Khan DPM Work Phone: noms PODIATRYComment on above:Dermatophytosis of nail (Primary Dx); Dystrophic nail; Pain in both feetStart: 05-16-2024 End: 49-50-4247vuhhsjqhanOYXNWTV S RUSHERNot AvailableStart: 05-16-2024 End: 38-93-9253Xbweig George Khan DPM Work Phone: noms PODIATRYStart: 05-16-2024 End: 17-47-7230Imcyxs flowsheetMarce Khan DPM Work Phone: noms PODIATRYStart: 05-12-2024 End: 21-46-8939zlrzllgvxkFfgaej J Myers PA-C Work Phone: [facility] Work Phone: Start: 05-12-2024 End: 25-69-1848Njnrehl encounter procedureRomel PEREZ-C Work Phone: [facility] Work Phone: Start: 05-04-2024 End: 59-86-5983Mrrolj outpatient visit 25 minutesBryce Hendrickson MD Work Phone: uh [facility] on above:Mitral valve insufficiency, unspecified etiology (Primary Dx); Left ventricular systolic dysfunction; Essential hypertension; LBBB (left bundle branch block); BMI 28.0-28.9,adult; Stage 3a chronic kidney disease (Multi)Start: 05-04-2024 End: 56-02-8960srfckqrqqxXJKPFX M [facility] AmbulatoryStart: 46-80-0241Ozq-patient / Non-visitRomel PEREZ-Edgra Work Phone: [facility] Work Phone: Start: 04-12-2024 End: 93-24-4689Fjyfhxn encounter procedureRomel PEREZ-C Work Phone: [facility] Work Phone: Start: 78-86-9280Ojn-patient / Non-visitRomel PEREZ-C Work Phone: [facility] Work Phone: Start: 18-04-3023Mcb-patient / Non-visitRomel PEREZ-C Work Phone: [facility] Work Phone: start: 22-94-5280Hds-patient / Non-visitSandeefrancheska William PA-C Work Phone: [facility] Work Phone: Start: 04-07-2024 End: 25-28-2960Ovhdxumstc and management of inpatientRomel Stewart PA-C Work Phone: [facility] Work Phone: Start: 04-04-2024 End: 94-90-8905Dbofcbg encounter procedureSandeefrancheska William PA-C Work Phone: [facility] Work Phone: Start: 87-19-6828Csl-patient / Non-visitSandeefrancheska William PA-C Work Phone: [facility] GroupQuin[facility] Work Phone: Start: 03-28-2024 End: 90-85-4990iysgfxeupgNOPUUW H TIMMISNot AvailableStart: 03-28-2024 End: 79-88-4972Yfxpar outpatient visit 25 minutesChuck Cope MD Work Phone: noms CI ENTComment on above:Chronic frontal sinusitis (Primary Dx)Start: 03-24-2024 End: 58-29-3609Ikufhfkee Result EncounterHitaz Cope MD Work Phone: noms External Department UnsolicitedStart: 03-24-2024 End: 28-87-6334Tzccyhrtv Result EncounterHitaz Cope MD Work Phone: noms External Department UnsolicitedStart: 03-08-2024 End: 58-55-0047Fbrdlz flowsheetChuck Cope MD Work Phone: noms CI ENTStart: 03-08-2024 End: 44-72-8467Gjfrcb flowsheetChuck Cope MD Work Phone: noms CI ENTStart: 03-08-2024 End: 03-51-9733Bbrvff outpatient visit 25 minutesHitaz Cope MD Work Phone: noms CI ENTComment on above:Chronic sinusitis, unspecified location (Primary Dx)Start: 03-08-2024 End: 69-12-2319yrqydwdtikGFUPWQ H TIMMISNot AvailableStart: 39-27-8581Tbv- patient / Non-visitDO Sylvester Jacob Work Phone: [facility] Work Phone: Start: 03-01-2024 End: 85-47-3351ehmxlbmxfaFM Sylvester Dolosys Work Phone: [facility] Work Phone: Start: 03-01-2024 End: 15-71-8115Rggzwvc encounter procedureDO Sylvester Dolosys Work Phone: [facility] Work Phone: Start: 02-08-2024 End: 22-63-3678Lshhlju encounter procedureDO Sylvester Dolosys Work Phone: [facility] Neurosurgery Work Phone: start: 02-08-2024 End: 19-83-5495jnowfklbgqKN Sylvester Dolosys Work Phone: [facility] Work Phone: Start: 01-18-2024 End: 70-97-9672Gdkvnwswsf hospital visit by Joaquin Ames Echo/Vasc Room 2Searcy HospitalComment on above:Mitral valve insufficiency, unspecified etiologyStart: 01-06-2024 End: 05-11-7591Dusowfsva encounterReenoc Mart RN Work Phone: Hematology/OncologyComment on above:Radiology MammogramStart: 01-05-2024 End: 17-63-3081frcbmftdxsWD Sylvester Dolosys Work Phone: [facility] Work Phone: Start: 01-05-2024 End: 68-70-8088Qvpirnt encounter procedureDO Sylvester Jacob Work Phone: [facility] Work Phone: Start: 51-94-4044Cpm-patient / Non-visitDO Sylvester Jacob Work Phone: [facility] Work Phone: Start: 12-21-2023 End: 95-62-8390Ooubunxua to same day surgery centerDO Sylvester Jacob Work Phone: [facility] Work Phone: Start: 12-21-2023 End: 35-65-3086icwqxglewmKO Sylvester Jacob Work Phone: [facility] Work Phone: Start: 12-13-2023 End: 06-31-9974mlrpmfhxadAU Sylvester Jacob Work Phone: [facility] Work Phone: Start: 12-13-2023 End: 15-50-2904Gqvfuhu encounter procedureDO Sylvester Jacob Work Phone: [facility] Work Phone: Start: 11-24-2023 End: 75-88-5420krgpxxlwstUT Sylvester Jacob Work Phone: [facility] Work Phone: Start: 11-24-2023 End: 16-95-9691Eailocz encounter procedureDO Sylvester Jacob Work Phone: [facility] Work Phone: Start: 11-01-2023 End: 16-45-3217aarmtzkokoBS Sylvester Jacob Work Phone: [facility] Work Phone: Start: 11-01-2023 End: 59-26-7628Uhxwbio encounter procedureDO Sylvester Jacob Work Phone: [facility] Work Phone: Start: 10-19-2023 End: 14-34-1108mcuktlmavtCZ Sylvester Jacob Work Phone: [facility] Work Phone: Start: 10-19-2023 End: 86-62-8891Untflyn encounter procedureDO Sylvester Jacob Work Phone: [facility] Neurosurgery Work Phone: start: 09-22-2023 End: 61-42-6220ecuawsanbeRA Sylvester Jacob Work Phone: [facility] Work Phone: Start: 09-22-2023 End: 35-21-7769Twcwayl encounter procedureDO Sylvester Jacob Work Phone: [facility] Work Phone: Start: 38-42-4252Whi-patient / Non-visitDO Sylvester Jacob Work Phone: [facility] Work Phone: Start: 09-14-2023 End: 25-55-4414Oynldtr encounter procedureDO Sylvester Jacob Work Phone: [facility] Work Phone: Start: 84-48-6487Wfk-patient / Non-visitDO Sylvester Jacob Work Phone: [facility] Pain Management [facility] Work Phone: Start: 09-07-2023 End: 86-89-8510Essqedosv to same day surgery centerDO Sylvester Jacob Work Phone: [facility] Work Phone: Start: 09-07-2023 End: 14-55-2371nedvtdgsewGN Sylvester Jacob Work Phone: [facility] Work Phone: Start: 08-11-2023 End: 84-40-6062zkfaxsvdewZRW [facility] Work Phone: Start: 08-11-2023 End: 06-96-4975Affxmkv encounter procedureNorth [facility] Specialty Hospital [facility] Pain [facility] Work Phone: Start: 66-24-1604Dxc-patient / Non-visitNorth [facility] Specialty Hospital [facility]ician [facility] Work Phone: Start: 07-20-2023 End: 78-66-8840ddbfqqfsupKADWestern Reserve Hospital Work Phone: Start: 07-20-2023 End: 90-75-8122Bnefozl encounter procedureNorth [facility] Specialty Hospital [facility]ician [facility] Neurosurgery Work Phone: start: 07-15-2023 End: 72-97-0387Fhtdgo outpatient visit 25 minutesBryce Hendrickson MD Work Phone: uh [facility] HospitalComment on above:Mitral valve insufficiency, unspecified etiology; Essential hypertension; Left ventricular systolic dysfunction; BMI 29.0-29.9,adult; Never smoked tobaccoStart: 75-03-9749Mcd-patient / Non-visitNorth [facility] Specialty Hospital Physician [facility] Work Phone: Start: 06-22-2023 End: 27-64-2675fafnmgvdmzJmhft R Murphy MD Work Phone: Hematology/OncologyComment on above:Malignant neoplasm of upper-outer quadrant of left breast in female, estrogen receptor negative (HCC) (HCC) (Primary Dx); 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)Start: 06-22-2023 End: 87-86-8320Zhhpvgb encounter Manjinder Mercado MD Work Phone: SANDUSKYStart: 16-92-3956Sct-patient / Non-visit [facility]ician [facility] Work Phone: Start: 06-21-2023 End: 47-21-1673tovievleprVZ Sylvester Jacob Work Phone: [facility] Work Phone: Start: 06-21-2023 End: 71-84-6370Drbldbk encounter procedureDO Sylvester Jacob Work Phone: [facility] Neurosurgery Work Phone: start: 06-08-2023 End: 90-42-0513ymihzzlcnhPjttfzbq Ball Other [facility] [place] Other Start: 53-54-1374Lqojwbevw encounterBeantoninahaseeb Jacob Medical ClinicStart: 05-26-2023 End: 96-15-6017lmbwdzmuaxYomdcuz Biggs Other nouniversity [facility] truman medical center [place] Other start: 06-08-3445Qrmuxl follow up visit related to original pxVivi SpringerLe Bonheur [facility] [place] NeurosurgeryStart: 05-26-2023 End: 43-23-1770Iakpjli encounter procedureDO Sylvester Jacob Work Phone: [facility] Work Phone: Start: 05-26-2023 End: 10-74-8228Rkgydxb encounter procedureDO Sylvester Jacob Work Phone: [facility]-Start: 05-07-2023 End: 58-59-2956qyqfptxvjrEtlyorra Ball Other [employer] [place] Other Start: 35-45-5585Qdefxo outpatient visit 15 minutes Sylvester StringerGene Nidia Medical ClinicStart: 04-98-0790Xbaeasf encounter procedure DO Sylvester Jacob Work Phone: [facility]-Start: 04-29-2023 End: 89-05-3221pdsosaptbaDtvwoukl Ball Other [employer] Other Start: 75-97-3156Fviojt outpatient visit 25 minutes Sylvester Jacob Medical ClinicStart: 59-14-2208Ctqcyxjzx encounterBenjakaroline Jacob Medical ClinicStart: 04-29-2023 End: 69-24-6190Dosafix encounter procedureDO Sylvester Jacob Work Phone: [facility] Work Phone: Start: 04-27-2023 End: 26-28-3761qjlgwakicrTtyg Moreau Other [employer] Other start: 05-40-7654Hsxktf follow up visit related to original pxDalela MoreauGene [facility] NeurosurgeryStart: 04-27-2023 End: 21-49-1791Qhmwkml encounter procedureDO Sylvester Jacob Work Phone: [facility] Work Phone: start: 04-23-2023 End: 46-08-5373ddgfdvriqbRwupvvoy Ball Other noRkylin Other Start: 05-06-4841Mfpkrnqui encounterBenhaseeb Jacob Medical ClinicStart: 81-82-5831qgxfewnfspLNYCUET PROVIDER Facility:METROHealthStart: 04-15-2023 End: 16-65-8994Hatnhbvxmx and management of inpatientDO Sylvester Jacob Work Phone: [facility] [place] [facility] Work Phone: Start: 04-13-2023 End: 88-47-4524Idpgvsmyn to same day surgery centerDO Sylvester Jacob Work Phone: [facility] HospitalStart: 04-09-2023 End: 20-62-3574Kdsahdxac to same day surgery centerDO Sylvester Jacob Work Phone: [facility] CampusStart: 04-09-2023 End: 34-01-7336fikslgqefbXR Benjamin Ball Work Phone: [facility] Work Phone: Start: 03-26-2023 End: 91-05-4121Hwoqtzc encounter procedureDO Sylvester Jacob Work Phone: [facility]en-Vcscvmnf Testing Work Phone: Start: 03-23-2023 End: 28-70-9978fmhcrubyacRykcjgvi Ball Other [employer] Other Start: 89-27-1738Iqnqubext encounterSylvester Amado Jacob Medical ClinicStart: 03-18-2023 End: 63-41-6221hjpqssgmbgAmxlyg Braun Other [employer] Other Start: 24-40-8218Xbymvhqbb encounterMarmartín Mariel Jacob Medical ClinicStart: 03-18-2023 End: 72-38-5493Wkjldz outpatient visit 25 minutesBryce Hendrickson MD Work Phone: [facility] Sum[facility] CountyComment on above:Mitral valve insufficiency, unspecified etiology (Primary Dx); Essential hypertension; Overweight with body mass index (BMI) of 29 to 29.9 in adult; Edema, unspecified type; Left ventricular systolic dysfunctionStart: 34-22-1403Byxhsmvxj for gynecological examination (general) (routine) without abnormal findingsRadha Mariel Jacob Medical ClinicStart: 41-82-5631Gowcdy outpatient visit 25 minutes Radha [facility] Medical ClinicStart: 68-19-5140Ycfstzeiw encounterDale [facility] NeurosurgeryStart: 03-10-2023 End: 44-53-8473qawhkddtdrQP Benjamin Ball Work Phone: [employer] Other start: 03-10-2023 End: 96-79-0708Qtfudwpw ReferredDO Sylvester Jacob Work Phone: [facility] [place] Work Phone: Start: 03-05-2023 End: 31-26-8238svwapyiybzJdsmunyb Ball Other noRkylin Other Start: 72-89-8270Dfvbidzcg encounterBenhaseeb Jacob Medical ClinicStart: 03-04-2023 End: 89-33-1163qzbwpciafiRqwnduuh Ball Other noRkylin Other Start: 19-03-9365Uwiwelnci encounterSylvester Jacob Medical ClinicStart: 03-02-2023 End: 75-55-4842Lmcxme outpatient visit 25 minutesBryce Hendrickson MD Work Phone: [facility] HospitalComment on above:Mitral valve insufficiency, unspecified etiology; Essential hypertension; Edema, unspecified type; LBBB (left bundle branch block)Start: 03-01-2023 End: 14-01-4498yzrunfodfnNegvdxfj Ball Other [facility] [place] Other Start: 69-82-7434Kxdchzrgt encounterSylvester Jacob Medical ClinicStart: 02-25-2023 End: 58-31-7618gopbvfnyreBuut Moreau Other nouniversity [facility] [place] Other start: 64-81-6845Sjmyqn outpatient visit 40 minutes Devin Floyd [facility] NeurosurgeryStart: 02-22-2023 End: 63-30-9534euqpfjnyqrUdkkcciz Ball Other noJoystickers [place] Other Start: 88-74-6510Gpjzrnn evaluation of patient and reportBereal Jacob Medical ClinicStart: 95-64-5202Vzxkiadrl encounter Sylvester Amado [facility] Medical ClinicStart: 02-15-2023 End: 83-69-7345cdngoqskgyHL Sylvester Jacob Work Phone: [facility] Work Phone: Start: 02-15-2023 End: 62-49-3255Empnrxx encounter procedureDO Sylvester Jacob Work Phone: [facility] [place] Work Phone: Start: 02-09-2023 End: 88-81-0019kzptvdusypCwpfmipd Ball Other [employer] Other Start: 16-34-1761Iznoobjpm encounterBereal StringerGene Jacob Medical ClinicStart: 02-01-2023 End: 64-82-6458cogcunvuklWrvx Braun Other noRkylin Other start: 20-99-8385Ubvrveysr encounterDale SofiGene Jacob Medical ClinicStart: 01-28-2023 End: 37-29-0288ycbmgwyumfMF Sylvester Jacob Work Phone: [facility] Work Phone: Start: 01-28-2023 End: 26-68-4760Ukkhivx encounter procedureDO Sylvester Jacob Work Phone: [facility] Work Phone: Start: 82-96-9838ysxsgikxovSzRadha Braden Nidia Facility:[id number]: 01-21-2023 End: 96-35-1507ckatstnwidAxor Braun Other noRkylin Other start: 96-89-3019Punfsz outpatient visit 15 minutes Devin MoreauLe Bonheur [facility], [place] NeurosurgeryStart: 01-07-2023 End: 01-60-6373qjzfbzdjziSzulpbwo Nidia Other noRkylin Other Start: 77-59-5365Dkhokjf encounter procedureBenjamin BallFPG [facility] ClinicStart: 01-05-2023 End: 61-71-7507klmywuorusKcsdkiwn Ball Other noRkylin Other Start: 02-06-3600Ywvodpxjr encounterBenjamin BallFPG [facility] ClinicStart: 10-21-2022 End: 67-45-1962gqxwrbvwebLsfggsfm Ball Other [employer] Other Start: 54-51-2253Ebdkrnpwi encounterBenjamin BallFPG [facility] Medical ClinicStart: 09-03-2022 End: 94-97-5646vzjfvceyatZJ SYLVESTER BALLFacility:A2Farbm: 08-18-2022 End: 54-38-8405hliyzwcnvuPZ SYLVESTER BALLFacility:B6Hryhf: 08-14-2022 End: 00-88-2033edoakknncrLzcufzkk Ball Other noun[facility] [place] Other Start: 29-19-7691Jjzqehnxy encounterBenjamin BallFPG [facility] ClinicStart: 08-04-2022 End: 85-69-7121acieqdqxloAzgiwzhc Ball Other noRkylin Other Start: 51-89-1410Zdmwfhvsu encounterBenjamin BallFPG [facility] ClinicStart: 07-16-2022 End: 26-05-3941orandbrxdqCiopdjxa Ball Other noRkylin Other Start: 58-76-7680Heingx outpatient visit 15 minutes Sylvester BallFPG [facility] ClinicStart: 06-23-2022 End: 98-91-9065ydqlfopxuzQikp Moreau Other noRkylin Other start: 97-14-8696Twoslg follow up visit related to original pxDale BraunFPG [place] NeurosurgeryStart: 11-78-2797Twrgt Update Sylvester Jacob Work Phone: [phone]-Rrknk [facility] [address] DO Work Phone: Start: 60-09-4205Thewtbn encounter procedureBepariskaroline Jacob Work Phone: [phone]-Lvvcz [facility] Work Phone: Start: 89-68-8494jswharyerrFgDr. Sylvester Jacob Facility:[id number]: 05-22-2022 End: 56-53-9705gytixngxuyKqkpnepz Nidia Other [employer]Ver[employer] Other Start: 81-67-4113Jmvhlih evaluation of patient and reportDavidreal JacobGene Jacob Medical ClinicStart: 05-19-2022 End: 98-90-4180sxtwqgonnuOyekk R Murphy MD Work Phone: Hematology/OncologyComment on above:Malignant neoplasm of upper-outer quadrant of left breast in female, estrogen receptor negative (HCC) (Primary Dx)Start: 05-19-2022 End: 22-66-7056Aqkhixl encounter Manjinder Mercado MD Work Phone: SANDUSKYStart: 05-14-2022 End: 12-41-0450icdfutoszuZosvlcr Biggs Other Noun[facility] [place] Other start: 43-22-7490Vgaggm follow up visit related to original pxJessica [facility] [place] NeurosurgeryStart: 73-13-1214Uwgchb outpatient visit 25 minutesBepariskaroline Jacob Work Phone: [phone]-Lxgne [facility] DO Work Phone: Start: 05-12-2022 End: 32-23-2930pnvoefnsasJtgxhtmk Edward BallFacility:[id number]: 05-12-2022 End: 28-34-3087Uzvgwll encounter procedureDO Sylvester Jacob Work Phone: [facility] [place] Work Phone: Start: 05-11-2022 End: 19-77-7801obvitffxhtSL SYLVESTER NIDIAFacility:N9Saxip: 05-07-2022 End: 11-79-8767lofnvsfnufLkrhfkoz Ball Other noRkylin Other Start: 03-08-1588Ommmrqpye encounterBereal JacobPRESCOTT [facility] Family Medicine [place]kyStart: 24-32-1108ZqkghdCwccq R Murphy MD Work Phone: Hematology/OncologyComment on above:Refill Request Start: 04-14-2022 End: 71-07-7453dmvqyqotlcIudl Braun Other [facility] [place] Other start: 13-38-3370Ckevqe follow up visit related to original pxDalela MoreauLe Bonheur [facility], [place] NeurosurgeryStart: 04-11-2022 End: 66-57-4056arispruavoAK YOSHI VALENZUELAECKFacility:U8Ntxro: 03-30-2022 End: 92-81-6557Qeonoscok to same day surgery [facility]trStart: 03-30-2022 End: 76-20-4681jjnqdowfjjSD Sylvester Jacob Work Phone: [facility] [place] Other start: 03-27-2022 End: 73-23-0687Riowlsy encounter procedureDO Sylvester Jacob Work Phone: [facility] Bqn-Nha-Qpmxjbmj Testing Start: 03-16-2022(DME) [facility]Hol[facility] CtrStart: 03-16-2022 End: 79-09-3948aqjqenkixiPV Sylvester Jacob Work Phone: [facility] Work Phone: Start: 03-16-2022 End: 98-67-6182Qxlvumc encounter procedureDO Sylvester Jacob Work Phone: [facility] Testing Start: 93-67-0569Cmuigy outpatient visit 25 minutesBeantoninahaseeb Jacob Work Phone: [phone]-Ohxmj [facility] [facility] DO Work Phone: Start: 79-78-9191jocjbublmpZbsydozu Edward Ball Facility:[id number]: 02-09-2022(Procedure) ShortThomas FelterErie [facility]ver [facility] Surgery CenterStart: 02-09-2022 End: 85-48-0104ybbmwoskfeIgkhnk Felter Other [employer] Other Start: 02-05-2022 End: 41-33-5461jdedoqwdvdTW EVELIN DOLLFacility:M7Zwrwl: 01-26-2022 End: 38-99-8937mechfkidcjPunxqv Felter Other [employer] Other Start: 43-66-2869Kquhddvbh encounterThurvashi BlackburnGene Ames OrthopedicsStart: 01-20-2022 End: 24-21-8172keqlfpkqwhVgxq Braun Other [employer] Other start: 19-63-8646Sgzjeo outpatient visit 15 minutes Devin [facility] NeurosurgeryStart: 16-14-9267Ultsl health examination Sylvester Jacob Other [employer] Other Start: 01-09-2022 End: 40-61-1267jlpnqstiqvFE STEVEN R ZIEBERFacility:P2Edbdr: 12-30-2021 End: 10-20-8613vzntbuuybsCgxt Braun Other [employer] Other start: 45-18-3658Nbbmee follow up visit related to original pxDale LizzethLe Bonheur Children's [facility], [place] NeurosurgeryStart: 12-29-2021 End: 05-90-5205Avwxyob encounter procedureDO Sylvester Jacob Work Phone: [facility] HospitalStart: 11-04-2021 End: 20-78-7887qjstoadwdsUang Braun Other [employer] Other start: 26-50-0150Zphlhg follow up visit related to original pxDevin [facility] NeurosurgeryStart: 10-08-2021 End: 04-89-3738Ovnvpgffe to same day surgery centerDO Sylvester Jacob Work Phone: [facility] HospitalStart: 10-08-2021 End: 28-97-0152ekzaitmacjYxrr Braun Other noRkylin Other start: 10-06-2021 End: 55-19-9241Pehmsqt encounter procedureDO Sylvester Jacob Work Phone: [facility] Testing Start: 09-24-2021 End: 52-81-8142Ycodvvo encounter procedureDO Sylvester Jacob Work Phone: [facility] Testing Start: 08-07-2021 End: 46-57-7626mknucqotuuNjti Braun Other noRkylin Other start: 49-19-2778Vemhai outpatient visit 40 minutes Devin [facility] NeurosurgeryStart: 07-08-2021 End: 92-99-9692Ymlkccf encounter procedureDO Sylvester Jacob Work Phone: [facility] HospitalStart: 59-75-3409Nwo-procedure evaluation checkBereal Jacob Other [employer] Other Start: 48-65-4539Pjnvrza encounterHACHRISTELLE HENDRICKSON Facility:[id number] Procedures DateProcedureProcedure DetailPerforming ClinicianStart: 58-56-7981Vcvwod field xm uni/bi w/interp extended examJokaryn Encarnacion DO Work Phone: Start: 03-05-2025 End: 81-63-2490Nmwvp medical xm&eval comprhnsv estab pt 1/>Primary open angle glaucoma (POAG) of both eyes, mild stageJokaryn Encarnacion DO Work Phone: comment on above:Primary open angle glaucoma (POAG) of both eyes, mild stage (Primary Dx); PCO (posterior capsular opacification), bilateral; Keratoconjunctivitis sicca of both eyes not specified as Sjogren'sStart: 97-58-6671Bmjj transthorc r-t 2d w/wo m-mode rec f-up/lmtdHassan Derrek Hendrickson MD Work Phone: Start: 17-28-6309Ygsdw shoulder complete minimum 2 viewsMatthew Brian PEREZ Work Phone: Start: 22-38-3415Oyeehguc screenArpan KarkiComment on above:Order Comment: Transfuse now? Y Number of units to transfuse now? 1Result Comment: PERFORMED BY:[place] [address] [place], [place] [phone] MEDICAL DIRECTORCARLOS VÁZQUEZ M.D.Start: 24-25-3295Qxnqelhg screenArpan KarkiComment on above:Order Comment: Transfuse now? Y Number of units to transfuse now? 2Result Comment: PERFORMED BY:[place] [address] [place], [place] [phone] MEDICAL DIRECTORCARLOS VÁZQUEZ M.D.Start: 60-88-5485Mqrxaknxs for occult blood in fecesBenjamin Ball DO Work Phone: Start: 93-61-9334Zhcav chest X-rayBenjamin Ball DO Work Phone: Start: 71-82-9501JI of abdomen and pelvis without contrastBenjamin Ball DO Work Phone: Start: 30-99-6999GS of head without contrastBenjamin Ball DO Work Phone: Start: 75-61-2749Toqne foot complete minimum 3 views Tamy Khan DPM Work Phone: Start: 42-74-6258Gbrrw radiography of pelvisArthur William PA-C Work Phone: Start: 43-25-0398E-ray of left knee, three viewsArthur William PA-C Work Phone: Start: 23-19-5330Bvcpqapgimezrfs of bilateral kidneys Romel William PA-C Work Phone: start: 74-88-1164WW cervical spine without contrast Romel William PA-C Work Phone: start: 01-96-1625OD of head without contrastArthur William PA-C Work Phone: Start: 13-10-9017Xpxtu X-ray of bilateral tibia and bilateral fibulaArthur William PA-C Work Phone: start: 27-60-4964U-ray of left knee, two viewsArthur William PA-C Work Phone: Start: 03-14-8143Dqqzbhplgxny ophthalmic imaging optic nerveAllen Palacios Peterviet DO Work Phone: Start: 05-29-2024 End: 04-14-6302Ncqbk medical xm&eval comprhnsv estab pt 1/>Primary open angle glaucoma (POAG) of both eyes, mild stage (CMS/HCC)Allen Encarnacion DO Work Phone: comment on above:Primary open angle glaucoma (POAG) of both eyes, mild stage (CMS/HCC) (Primary Dx); PCO (posterior capsular opacification), bilateral; Keratoconjunctivitis sicca of both eyes not specified as Sjogren'sStart: 56-45-5406GY of head without contrastArthur William PA-C Work Phone: start: 40-66-9418Ocawz chest X-rayRomel William PA-C Work Phone: Start: 57-52-7001Rcefd sinuses paranasal compl minimum 3 viewsHilary Celia Cope MD Work Phone: Start: 25-55-8903E-ray of lumbar spine, two or three viewsDO [employer] Work Phone: Start: 08-81-3028Cyauzngbu of local anesthetic into sacroiliac jointDO [employer] Work Phone: Start: 49-16-9154Y-ray of lumbar spine, two or three viewsDO [employer] Phone: Start: 49-58-4486Kmitaojmg of local anesthetic into sacroiliac jointDO [employer] Work Phone: start: 07-35-5320W-ray of lumbar spine, two or three viewsStart: 10-86-0032T-ray of lumbar spine, two or three viewsDO [employer] Work Phone: Start: 03-57-4249KJ Lumbar Laminectomy w/Fix Implants (Not Applicable)DO [employer] Work Phone: Start: 03-66-5677Q-ray of lumbar spine, two or three viewsDO [employer] Phone: Start: 95-36-0272WNF of lumbar spine with contrastDO [employer] Work Phone: Start: 45-43-1601Y-ray of lumbar spine, six views including bending viewsDO [employer] Phone: Start: 96-87-3376[employer] X-ray absorptiometryDO [employer] Phone: Start: 63-16-7570A-ray of lumbar spine, four viewsDO [employer] Phone: Start: 68-00-1994PS Lumbar Laminectomy w/Fix Implants (Not Applicable)DO [employer] Phone: Start: 41-14-2191M-ray of lumbar spine, two or three viewsDO [employer] Work Phone: Start: 30-20-5377GQSX Antigen (LFIA)DO [employer] Work Phone: Start: 15-33-6410E-ray of lumbar spine, four viewsDO [employer] Work Phone: Start: 61-49-5263Velxjnro of lumbar intervertebral discDO [employer] Work Phone: Start: 60-03-0875F-ray of lumbar spine, single viewDO [employer] Work Phone: Start: 77-54-5842D-ray of lumbar spine, six views including bending viewsDO [employer] Work Phone: Start: 15-85-8856Zzionilq screenComment on above: Performed By: #### [id number] ####[address] [phone]: 45-43-1312Czixtzvrt for malignant neoplasm of colon [employer] Other Start: 56-19-1623Jrmaublacome cardiovascular examinationBenjaCheck Other AppendectomyBenjamin E Ball Work Phone: Arthroplasty of kneeBenjamin E Ball Work Phone: Cataract surgeryBenjamin E Ball Work Phone: CholecystectomyBenjamin E Ball Work Phone: ColonoscopyBenjamin E Ball Work Phone: Depression screeningBenjamin Ball Other HysterectomyBenjamin E Ball Work Phone: Procedure on backBenjamin E Ball Work Phone: Comment on above:10/22 03/24;Repair of musculotendinous cuff of shoulderBenjamin E Ball Work Phone: Screening for malignant neoplasm of breastBenjamin Ball Other Plan of Treatment DateCare ActivityDetailAuthorStart: 47-62-9921Lluobzuk ScreeningDiabetes ScreeningSalem City Hospitaltart: 34-21-1338Rizlhsfvr for osteoporosisBone Density ScanCleveland Clinic Marymount Hospital: 40-78-3256Gqxcupsk Screening Diabetes ScreeningSalem City Hospitaltart: 68-71-9353Uclmfcihvlsxvnxh EchocardiogramCleveland Clinic [facility]: 80-29-7616Oqyrttwknvxawmfn EchocardiogramCleveland Clinic [facility]: 09-14-2025 End: 10-67-0053Hezwoua encounter fccpvwtva37/15/2026 10:20 AM EDT Office Visit [place] [address] [place] [address] Bryce Hendrickson MD [address] [facility] [address] [place] [address] [facility]: 02-61-5721JB Controlled (<130/80)BP Controlled (<130/80)[facility]: 22-97-4435Pxwmaxdy blood countHemoglobin/HematocritSalem City Hospitaltart: 00-39-7995Pspvsyhuhn measurementSerum CreatinineSalem City Hospitaltart: 25-57-6850SGYYHMSP SCREENDIABETES SCREENSalem City Hospitaltart: 03-19-2025 End: 79-30-6332Ugwcxpl encounter khqpwieav45/17/2025 3:15 PM EST Procedure Visit [facility] [address] [facility] [place] [address] Tamy Khan DPM [address] [place], [place] [address] [facility] PodiatryStart: 03-05-2025 End: 23-12-3989Uzafvrp encounter procedureNOGreenwood [facility] EyeComment on above:ArrivedStart: 02-16-2025 End: 46-02-4402Nmurcsg encounter njqucmhdl48/17/2025 10:45 AM EDT Appointment [facility] [address] [facility] [address] [place] [address] [facility]Start: 02-12-2025 End: 85-31-9212Bppklsa encounter swogwsend54/13/2025 2:45 PM EDT [facility] [place] [facility] [address] [place], [place] Dick Levin, PA [address] [place] [address] Acute pain of right shoulder (Primary Dx) [facility] [place] OrthopaedicsComment on above:Acute pain of right shoulder (Primary Dx)Start: 01-30-2025 End: 21-70-1928LE Heart TransthoracicTransthoracic Echo Limited Echocardiography Routine Mitral valve insufficiency, unspecified etiology Left ventricular systolic dysfunction Expected: 01/30/2025 (Approximate), Expires: 01/30/2027[facility] Service Area Work Phone: Comment on above:Expected: 01/30/2025 (Approximate), Expires: 01/30/2027Start: 98-59-5488Wwnjiggcv for osteoporosisBone Density Scan [facility]: 60-76-7528ZlxqfpxpwMercy Healthtart: 55-30-1512HQQDK-19 Vaccine ( season)COVID-19 Vaccine ( season)[facility]: 14-37-3017CHLSJ-19 Vaccine ( season)COVID-19 Vaccine ( season)[facility] Healthcare Start: 12-19-2024 End: 99-34-0358Nptihxw encounter /19/2025 9:45 AM EDT Procedure Visit [facility] [address] [place] [address] Tamy Khan, DPDerrek [address] [place], [place] [address] [facility] PODIATRYStart: 12-14-2024 End: 05-72-3632Vcapdla encounter /14/2025 3:15 PM EDT Procedure Visit [facility] [address] [place] [address] Tamy Khan DPM [address] [place] [address] [facility] PODIATRYStart: 29-59-5844VHO High Risk: (Elderly (60+) or Population) (1 - 1-dose 75+ series)RSV High Risk: (Elderly (60+) or Population) (1 - 1-dose 75+ series)[facility]Start: 59-44-1642MHE Vaccine (1 - 1-dose 75+ series)RSV Vaccine (1 - 1-dose 75+ series) [facility]: 05-38-2903KjoizgdxlMercy Healthtart: 11-28-2024 End: 26-76-4507Xmfjnvx encounter fjhnmusqh82/29/2025 10:45 AM EDT Office Visit [facility] [address] [place] [address] Allen Encarnacion DO [address] [place] [address] [facility] OPHTStart: 87-29-6222Haarteynlqcvzw of prophylactic treatmentMercy Healthtart: 80-50-4464Vhtjfbwr admissionMercy Healthtart: 98-03-9503Tbgfnnan to clinical allergistMercy Healthtart: 21-74-3917OekklulvgMercy Healthtart: 67-17-3921Dgmpostz to rehabilitation physicianMercy Healthtart: 58-09-9044ZqsvyuozcMercy Healthtart: 11-11-2024 End: 39-39-7693HmzvkcaliMercy Healthtart: 01-69-4286Hrtaoyzsb culture of sputumMercy Healthtart: 29-90-4440LmngnynaaMercy Healthtart: 11-09-2024 End: 00-71-4513Efalnyb encounter todeoetzk23/10/2025 9:00 AM EDT Procedure Visit [facility] [address] [place] [address] WLYJ SWS NEURStart: 95-17-6345XlugikpzaKindred Hospital Lima CenterStart: 11-08-2024 [facility] CenterStart: 03-53-0703Fhkqkods to chain person [facility] CenterStart: 92-94-7217Ehkxmwnvfgqok metabolic 1999 panel - Serum or [facility] CenterStart: 11-07-2024 [facility] CenterStart: 11-06-2024 End: 63-08-3389Kopqtuj encounter litcgifjw26/07/2025 12:00 PM EDT Procedure Visit [facility] [address] [place] [address] [facility] SWS NEURStart: 41-95-6678Jwywtavvdmtzh metabolic 1999 panel - Serum or PlasmaKindred Hospital Lima CenterStart: 50-67-6036HcpagfyxzKindred Hospital Lima CenterStart: 55-36-1527Zoiybhaw to gastroenterologistKindred Hospital Lima CenterStart: 99-79-9708Govkcnyubetmn metabolic 1999 panel - Serum or PlasmaKindred Hospital Lima CenterStart: 85-39-5827JbytevnfeKindred Hospital Lima CenterStart: 44-07-5403Bvmnshlhhtxxn metabolic 1999 panel - Serum or PlasmaKindred Hospital Lima CenterStart: 01-91-9488ItshaypndKindred Hospital Lima CenterStart: 38-06-9062Gooskkhioxqjc metabolic 1999 panel - Serum or PlasmaKindred Hospital Lima CenterStart: 11-03-2024 End: 22-55-0384RpkcfaztqKindred Hospital Lima CenterStart: 43-61-5799XbqhvweclKindred Hospital Lima CenterStart: 06-18-4688Lrfztkza to nephrologistKindred Hospital Lima CenterStart: 78-19-1359DsogmfxhdacpMmygdqaqd Regional Medical CenterStart: 26-45-3697Tiotmkqd admissionKindred Hospital Lima CenterStart: 54-61-9305Eeosmilop culture of sputumMercy Healthtart: 68-33-4951Viptelft therapy procedureMercy Healthtart: 01-64-5464Odhmljcm to occupational therapistCleveland Clinic Start: 11-02-2024 End: 04-72-7547NcemlfnwtMercy Healthtart: 59-66-5733Aezdbpptzqhr consultation with patientMercy Healthtart: 10-23-2024 End: 39-70-4720Kxugers encounter procedureNOMS SWS NEURComment on above:Arrived Start: 10-17-2024 End: 85-16-6520Vscqwtq encounter pnsqgyfnz70/17/2025 4:00 PM EDT Office Visit [facility] [address] [place] [address] Tamy Khan DPM [address] [place] [address] [facility] PODIATRYStart: 09-28-2024 End: 43-62-0762Synqsaa encounter jiybetxda30/29/2025 10:15 AM EDT Office Visit [facility] [address] [place] [address] Tamy Khan DPM [address] [place] [address] ArrivedNOMS PODIATRYComment on above:ArrivedStart: 09-06-2024 End: 72-63-8243Hpdnroo encounter fhootpcsz35/07/2025 2:45 PM EDT Procedure Visit [facility] [address] [place] [address] Tamy Khan DPM [address] [place] [address] ArrivedNOMS PODIATRYComment on above:ArrivedStart: 08-28-2024 End: 21-38-6069Cmexlhj encounter vpcpejfon88/28/2025 10:15 AM EDT Procedure Visit [facility] [address] [place] [address] Marce Khan, DPM [address] [place] [address] [facility] PODIATRYStart: 08-21-2024 End: 84-37-4394Xqsshj-up pijrxeahp88/21/2025 11:20 AM EDT Visit (SP) Office Hematology/Oncology [address] [address] Jacob Mercado MD [address] [place] [address] 1 year follow up lab and BRM(mammo 02/14/24)Hematology/Oncology Comment on above:1 year follow up lab and BRM(mammo 02/14/24)Start: 08-21-2024 End: 92-56-4477Flrhrab encounter eevfptfbe49/21/2025 11:00 AM EDT Office Visit [facility] [address] [place] [address] 1 year follow up lab and BRMNWyoming [facility] Hospital LaboratoryComment on above:1 year follow up lab and BRMStart: 07-18-2024 End: 00-22-9601Dktuckl encounter pznxnqzus84/18/2025 11:10 AM EDT Office Visit [facility] [address] [facility] [address] [place] [address] Chuck Cope MD [address] [facility] [address] [place] [address] [facility] CI ENTStart: 06-29-2024 End: 18-47-9432Kozhoud encounter bhedbgzdr73/27/2025 11:00 AM EST Office Visit [facility] [address] [facility] 310 [place] [address] Bran Linda MD [address] [place] [address] [facility] SWS NEURStart: 37-22-4497Usiht radiography of pelvisXR pelvis 1-2VMercy Healthtart: 48-37-4249H-ray of left knee, three viewsXR knee LT 3V - NOT FOR ER USEMercy Healthtart: 73-76-3176QZ Knee - left 3 ViewsMercy Healthtart: 76-37-1252RZ Pelvis 1 or 2 ViewsMercy Healthtart: 10-41-7237KP Controlled (<130/80)BP Controlled (<130/80) [facility]t: 79-49-2776Nbdytyiq blood countHemoglobin/Hematocrit [facility] Centerrt: 47-64-4899Afixzgefhg measurementSerum CreatinineSalem City Hospitaltart: 06-20-2024 End: 18-13-9597Xnywab-up nuwiyrajv36/18/2025 1:45 PM EST Visit (SP) Office Hematology/Oncology [address] [place], [place] [phone] Jacob Mercado MD [address] [place] [address] 1 year follow up lab and BRMHematology/OncologyComment on above:1 year follow up lab and BRMStart: 06-20-2024 End: 67-56-0048Zncokry encounter lewxxczts83/18/2025 1:30 PM EST Office Visit [facility] [address] [place], [place] [address] [place] [address] 1 year follow up lab and BRMNWyoming General Hospital LaboratoryComment on above:1 year follow up lab and BRMStart: 06-05-2024 [facility]: 07-32-7613Rrvsdqeo to rehabilitation physicianMercy Healthtart: 06-04-2024 End: 50-85-8003Flhem metabolic 2000 panel - Serum or PlasmaBasic Metabolic Panel Lab Routine Essential hypertension Expected: 06/04/2024 (Approximate), Expires: 05/04/2025[facility] Service Area Work Phone: Comment on above:Expected: 06/04/2024 (Approximate), Expires: 05/04/2025Start: 26-64-5429Fycfxugq to [facility]: 81-26-7006Qopmquuz admissionMercy Healthtart: 79-28-4355QeytxjqcqMercy Healthtart: 06-01-2024 [facility]: 05-29-2024 End: 88-35-5515Yamhcvh encounter procedureNOMS OPHTComment on above:Arrived Start: 05-16-2024 End: 22-18-8208Wircrzd encounter tlephpbeb68/14/2025 2:30 PM EST Procedure Visit [facility] [address] [place] [address] Marce Khan, DPM [address] [place] [address] ArrivedNOMS PODIATRYComment on above:ArrivedStart: 77-29-4140Qaocatp referralKettering Health [facility] Work Phone: Start: 05-09-2024 End: 92-18-2102Efcgpbs encounter jrlakomtv50/07/2025 11:20 AM EST Office Visit [facility] [address] [facility] 130 [place] [address] Chuck Cope MD [address] [facility] 130 [place] [address] [facility] CI ENTStart: 54-08-6615Zfijqgv Directive DiscussionAdvance Directive DiscussionSalem City Hospitaltart: 21-72-8052DmdqdwhonMercy Healthtart: 38-66-0985PBNZXDYN SCREENDIABETES SCREENSalem City Hospitaltart: 43-65-5556Nnsxjugs admissionCleveland Clinic Start: 65-10-4170Wejqkqwt to nephrologMercy Health Springfield Regional Medical Centertart: 04-07-2024 End: 50-67-5014Mxdqxfp encounter xcbzecoyg57/06/2024 10:30 AM EST Office Visit [facility] [address] [place] [address] Allen Encarnacion DO [address] [place] [address] [facility] NB OPHTStart: 03-28-2024 End: 03-70-9562MU Maxillofacial region WO and W contrast IVCT maxillofacial wo IV contrast Imaging Routine Chronic frontal sinusitis Expected: 03/28/2024, Expi res: 03/28/2025[facility] Work Phone: Comment on above:Expected: 03/28/2024, Expires: 03/28/2025Start: 03-24-2024 End: 26-23-7391Gkuqxvj encounter hfhurshph82/22/2024 2:10 PM EST Office Visit [address] [place] [address] Bryce Hendrickson MD [address] [facility] [address] [place] [address] [facility]Start: 03-08-2024 End: 08-34-1513Uniamut encounter /06/2024 9:20 AM EST Office Visit [facility] [address] [facility] [address] [place] [address] Chuck Cope MD [address] [facility] [address] [place] [address] ArrivedNOWY CI ENTComment on above:ArrivedStart: 20-42-5697Doxtahk referralMagruder Memorial Hospital Work Phone: Start: 83-98-1432O-ray of lumbar spine, two or three viewsXR lumbar spine 2-3V*[facility]: 01-20-2024 End: 11-63-2093Qhcodln encounter bqyfnwypd70/19/2024 10:20 AM EDT [facility] [address] [place] [address] Bryce Hendrickson MD [address] [facility] [address] [place] [address] [facility]: 01-10-2024 End: 71-57-2091Oxzhsdt encounter nyhuzuwzj69/09/2024 10:45 AM EDT Appointment [facility] [address] [place] [address] [facility]: 09-08-2024Medicare Annual Wellness VisitMedicare Annual Wellness Visit (AWV)[facility]: 94-51-4325WSTHC-19 Vaccine ( season)COVID-19 Vaccine ( season)[facility]: 28-57-9582BZVCG-19 Vaccine ( season) COVID-19 Vaccine ( season)[facility]: 73-95-5760Bowsf-19 Vaccine ( season)Covid-19 Vaccine ( season)[facility]: 00-19-3652Ryxix-19 Vaccine ( season) Covid-19 Vaccine ( season)[facility]: 54-23-1181Fvros-19 Vaccine ()Covid-19 Vaccine ( season)[facility]: 24-46-1526Xfeorsexj vaccinationInfluenza Vaccine (#1)[facility]: 01-02-2024 End: 95-80-9019BT Heart TransthoracicTransthoracic Echo Complete Echocardiography Routine Mitral valve insufficiency, unspecified etiology Expected: 01/02/2024 (Approximate), Expires: 07/14/2025[facility] Service Area Work Phone: Comment on above:Expected: 01/02/2024 (Approximate), Expires: 07/14/2025Start: 80-95-8153HjkilsvlcMercy Healthtart: 10-29-5573D-ray of lumbar spine, two or three viewsXR lumbar spine 2-3V* [facility]: 54-78-6799AjqtflormMercy Healthtart: 93-95-9649Rhqfgya referralMagruder Memorial Hospital Work Phone: Start: 87-95-1851C-ray of lumbar spine, two or three viewsXR lumbar spine 2-3V*[facility]: 89-01-9815UY Lumbar spine 2 or 3 ViewsMercy Healthtart: 07-13-2023 End: 92-83-1986Jbmwjnn encounter diepheiee23/12/2024 10:50 AM EDT Office Visit [place] [id number] [facility] [address] [place], [place] [address] Bryce Hendrickson MD [address] [facility] [address] [place] [address] [facility] CountyStart: 61-46-2433QIRNG CREATININESERUM CREATININE [facility]: 12-33-2363Prkqyrp Directive DiscussionAdvance Directive DiscussionSalem City Hospitaltart: 85-88-7223HlaufgixgCleveland Clinic Start: 73-04-7850Vdcddlir admissionMercy Healthtart: 98-57-0719PduevaojrMercy Healthtart: 01-85-6529Oriohjpr to rehabilitation physicianMercy Healthtart: 04-13-2023 Hospital admissionMercy Healthtart: 04-09-2023 End: 69-37-0445GG Lumbar Laminectomy w/Fix Implants (Not Applicable)OR Lumbar Laminectomy w/Fix Implants (Not Applicable)[facility] Start: 04-09-2023 End: 80-74-9038GnpdmqqehMercy Healthtart: 17-50-4572VMMIX-19 Vaccine (5 - Pfizer series)COVID-19 Vaccine (5 - Pfizer series)[facility] HospitalStart: 50-13-2262YknldzpwiMercy Healthtart: 03-02-2023 End: 51-00-1863Mtyqm metabolic 2000 panel - Serum or PlasmaBasic Metabolic Panel Lab Routine Edema, unspecified type Expected: 03/02/2023 (Approximate), s: 03/02/2024[facility] Service Area Work Phone: Comment on above:Expected: 03/02/2023 (Approximate), Expires: 03/02/2024Start: 96-27-8882QCW, Provider: Bryce Hendrickson, Status: Pen, Time: 10:00 AMFUV, Provider: Bryce Hendrickson, Status: Pen, Time: 10:00 AMMP-[facility] Work Phone: Start: 48-62-9544YXPN, Provider: HUI HHVI ULTRASOUND 01,[id number], Status: Pen, Time: 10:45 AMECHO, Provider: HUI GRIEDRI ULTRASOUND 01,[id number], Status: Pen, Time: 10:45 AM-[facility] 600 DO Work Phone: Start: 47-69-8534Lvdycxyro for osteoporosisBone Density [facility] HospitalStart: 52-92-3403ECJXAT NUC, Provider: HUI HHVI NUCLEAR 01,[id number], Status: Pen, Time: 12:00 PMSTRESS NUC, Provider: HUI HHVI NUCLEAR 01,[id number], Status: Pen, Time: 12:00 PM [facility] 250 DO Work Phone: Start: 05-19-2022 End: 43-09-3029Nwbkpt Ag 27-29 [Units/volume] in Serum or PlasmaMercy Health Allen [facility] Work Phone: Comment on above:Expected: 05/19/2022, Expires: 07/19/2022Start: 33-13-6175LSRSKIM DIRECTIVE DISCUSSIONADVANCE DIRECTIVE DISCUSSIONSalem City Hospitaltart: 80-90-6064NNROR CREATININESERUM CREATININE [facility]: 74-46-7028WocqytwuqMercy Healthtart: 57-34-2850Oitgrmspo vaccinationINFLUENZA (#1)[facility]: 12-09-2021 Screening for osteoporosisBone Density [facility] Start: 01-35-8387MCCCLLBBWLRM: 65+ (2 - PCV)PNEUMOCOCCAL: 65+ (2 - PCV)[facility]: 17-75-0863OWKEW-19 VACCINE (4 - Booster for Pfizer series)COVID-19 VACCINE (4 - Booster for Pfizer series)[facility]: 74-26-9820QFVC DENSITYBONE DENSITYSalem City Hospitaltart: 50-99-3433Smvxqzjji for osteoporosis Bone Density ScreeningSalem City Hospitaltart: 06-95-7996THfD/Tdap/Td Vaccines (1 - Tdap)DTaP/Tdap/Td Vaccines (1 - Tdap)[facility]: 20-66-1077Qcysg microalbumin profileDTaP,Tdap,Td Vaccine (1 - Tdap)[facility]: 04-08-7200SPH High Risk: (Elderly (60+) or Population) (1 - Risk 60-74 years 1-dose series)RSV High Risk: (Elderly (60+) or Population) (1 - Risk 60-74 years 1-dose series)[facility]: 14-77-2699UZL patients and/or patients aged 60+ years (1 - 1-dose 60+ series)RSV patients and/or patients aged 60+ years (1 - 1-dose 60+ series)[facility]: 11-59-2152JJR Vaccine (1 - 1-dose 60+ series)RSV Vaccine (1 - 1-dose 60+ series)[facility] Start: 24-83-5131Uqufwdqnyx measurementCreatinine [facility]: 55-54-8860Tfezadznk measurementPotassium [facility]: 05-80-5750DBQILBQON (FIT-DNA)COLOGUARD (FIT-DNA) [facility]: 50-70-0385NqpwerxatzmFKVENXBYTICEpbxxabzm ClinicStart: 57-75-2255PXRFUUMWCP CANCER SCREENINGCOLORECTAL CANCER SCREENINGSelect [facility] Start: 63-55-1246AX COLONOGRAPHYCT COLONOGRAPHYSalem City Hospitaltart: 1994 FECAL OCCULT BLOODFECAL OCCULT BLOODSalem City Hospitaltart: 17-10-0944Bpwli panel Lipid ScreeningSalem City Hospitaltart: 53-12-2857ZZMOS SCREENLIPID SCREEN [facility]: 66-99-5876Ltfxtmksz for malignant neoplasm of colon [facility]: 08-88-8835JYVTARXCDZXVPRMWHRGVVBKOLXGasedgxtt Clinic Start: 39-48-3457NjzhaxzkyncOXWDAESCCZdljkzxgv ClinicStart: 44-89-0112Cdpnjffmu for malignant neoplasm of breastSalem City Hospitaltart: 67-41-9453VEbB/Tdap/Td Vaccines (1 - Tdap)DTaP/Tdap/Td Vaccines (1 - Tdap)[facility]: 09-71-8993Ylxji microalbumin profileDTAP,TDAP,TD (1 - Tdap) [facility]: 05-13-2857Pcdpn screening for proteinCKD: Urine Protein ScreeningC[facility] Clinic [facility]: 14-05-7380EECSNC PCP TEAM CHRONIC DISEASE VISITANNUAL PCP TEAM CHRONIC DISEASE VISITSalem City Hospitaltart: 03-38-2770Ljwspai ScreeningAnxiety ScreeningSalem City Hospitaltart: 11-26-4655UE CONTROLLED (<130/80)BP CONTROLLED (<130/80)[facility]: 12-07-1968 Diabetes mellitus screeningDiabetes ScreeningTuscarawas Hospital Start: 74-51-2783QIYJMLBKF C SCREENINGHEPATITIS C SCREENINGSelect [facility] Start: 73-31-1927Elgnyttng C screeningHepatitis C ScreeningC[facility] Clinic [facility]: 58-57-4559MUcJ/Tdap/Td Vaccines (1 - Tdap)DTaP/Tdap/Td Vaccines (1 - Tdap)[facility]Start: 30-93-0234RVY Vaccines (1 of 1 - Standard series)MMR Vaccines (1 of 1 - Standard series)[facility]: 32-19-0773Pbsqn panelLipid PanelC[facility] Clinic [facility]: 08-06-1950Medicare Annual Wellness VisitMedicare Annual Wellness Visit (AWV)[facility]: 77-02-7248Xcsurocwi for malignant neoplasm of colonTuscarawas HospitalAnion gap measurementCleveland ClinicComprehensive metabolic 1999 panel - Serum or PlasmaCleveland ClinicComprehenve metabolic 1999 panel - Serum or PlasmaC[facility] Clinic End: 65-45-7708Iqqfgxuvud mammography computer-aided detcj uniMAM DIAGNOSTIC RT Radiology Routine Malignant neoplasm of upper-outer quadrant of left breast in female, estrogen receptor negative (HCC) 1 Occurrences starting 05/19/2022 until [facility] Work Phone: Comment on above:1 Occurrences starting 05/19/2022 until 06/18/2023EMG 2 ExtremitiesNOWY Healthcare Work Phone: Comment on above:Ordered: 10/23/2024Glomerular filtration rate [Volume Rate/Area] in Serum, Plasma or Blood by Creatinine Cleveland ClinicHuman papilloma virus 16+18+31+33+35+39+45+51+52+56+58+59+66+68 DNA [Presence] in Cervix by Probe with signal amplificationCleveland Clinic End: 45-00-1392TJ Breast - right Diagnostic for implantMAM DIAGNOSTIC RIGHT Radiology Routine Malignant neoplasm of upper-outer quadrant of left breast in female, estrogen receptor negative (HCC) (HCC) 1 Occurrences starting 06/22/2023 until 5CB[facility] Work Phone: Comment on above:1 Occurrences starting 06/22/2023 until 07/21/2024 End: 16-51-9015GP Breast - right Diagnostic for implantMAM DIAGNOSTIC RIGHT Radiology Routine Malignant neoplasm of upper-outer quadrant of left breast in female, estrogen receptor negative (HCC) 1 Occurrences starting 08/21/2024 until 6CBarn[facility] Work Phone: Comment on above:1 Occurrences starting 08/21/2024 until 09/20/2025MR Brain [facility]MR Cervical spine WO [facility] HospitalPatient EducationKindred Hospital Lima Ctr Work Phone: Patient referralKindred Hospital Lima Ctr Work Phone: End: 50-42-5535AY Heart TransthoracicCLOVIS BAPTIST HOSPITAL Service Area Work Phone: Comment on above:Once for 1 Occurrences starting 01/18/2024 until 01/18/2024XR Chest 2 [facility]XR Foot - left GE 3 [facility] HospitalXR Lumbar spine 2 or 3 [facility] HospitalXR Lumbar spine 2 or 3 [facility] HospitalXR Lumbar spine 2 or 3 [facility] Immunizations Immunization DateImmunizationNotesCare UfjmxjnrKxpndrlq43-68-4502axyjombog, high dose seasonal, preservative-freeBenjamin Ball DO Work Phone: [facility]09-22-2023Influenza, Seasonal, Quadrivalent, AdjuvantedBryce Hendrickson MD Work Phone: [facility] Work Phone: [phone] COVID-19 vaccine, Fall 2022, 12 years and older, (30mcg/0.3mL)Bryce Hendrickson MD Work Phone: [facility] Work Phone: [phone] virus vaccine, unspecified formulationTriny Mart RN Work Phone: [facility]onEwyjab53-23-9120iqquybraqwen conjugate vaccine, 13 valentBenjamin E Ball Work Phone: [facility] CantonVxzuxu05-07-6139Xrzcram COVID-19 Vaccine 100 MCG/0.5ML Intramuscular SuspensionBenjamin E Ball Work Phone: [facility] CantonFwyxel27-98-0301Lzopvq COVID-19 Vac Bivalent 30 MCG/0.3ML Intramuscular SuspensionBenjamin E Ball Work Phone: [phone]-LjzbfWoodwinds Health Campus 250 DO Work Phone: [phone]-69 Pfizer (Pediatric)Sylvester Nidia Other [facility]09-14-2022Fluad Quadrivalent 0.5 ML Intramuscular Prefilled SyringeBenjamin E Nidia Work Phone: [facility] CantonPdiuxf22-09-1821pkvsxppcd nasal, unspecified formulationJacob Mercado MD Work Phone: [facility] CantonBuuxmj06-79-3159xdcviapkc virus vaccine, split virus (incl. purified surface antigen)Sylvester Jacob Other [facility] [employer] Other [id number] virus vaccine, unspecified formulationDO Sylvester Nidia Work Phone: [facility]09-14-2022influenza, injectable, quadrivalent, preservative Joselin Cope MD Work Phone: [facility] HospitalQipkqnpcmy83-86-9990mvtzhcvlt, seasonal, injectableBenjamin E Nidia Work Phone: [facility] CantonComment on above:Series:08-28-2021 Comirnaty 30 MCG/0.3ML Intramuscular SuspensionBenjamin Galo Jacob Work Phone: [phone]-VkvbxWoodwinds Health Campus 250 DO Work Phone: [phone]-00 Vaccine Pfizer - Documentation Purposes OnlyBenaranzakaroline Jacob Other [facility]09-28-2021COVID-19 mRNA, Comirnaty (Pfizer)DO Sylvester Jacob Work Phone: [facility]09-28-2021Fluzone High-Dose Quadrivalent 0.7 ML Intramuscular Suspension Prefilled SyringeBenjamin Galo Jacob Work Phone: [facility] CantonXjoqws11-42-4647usiwiaqdquwl polysaccharide vaccine, 23 valentBenjamin E Nidia Work Phone: [facility] CantonYlwwbg82-43-7162PSEPN-14 mRNA, Comirnaty (Pfizer)DO Sylvester Jacob Work Phone: [facility]02-08-2021COVID-19 mRNA, Comirnaty (Pfizer)DO Sylvester Jacob Work Phone: [facility]01-25-2021zoster vaccine recombinantBenjamin E Nidia Work Phone: [facility] CantonPhrhrg15-38-7904hmefod vaccine, liveBenjamin Ball Other [facility]10-28-2020zoster vaccine recombinantBenjamin Galo Jacob Work Phone: [facility] CantonMdoidd14-37-4941aehzhz vaccine, liveBenjamin Ball Other [facility]10-01-2020influenza, injectable, quadrivalent, preservative freeDO Sylvester Jacob Work Phone: [facility]09-30-2020influenza nasal, unspecified formulationJacob Mercado MD Work Phone: [facility] CantonJxoypf50-26-6211tqsuulqar virus vaccine, split virus (incl. purified surface antigen)Sylvester Jacob Other [employer] Other 09456301-81-6170inqmothun virus vaccine, unspecified formulationDO Sylvester Jacob Work Phone: [facility]09-28-2020influenza, high dose seasonal, preservative-freeBenjamin E Nidia Work Phone: [facility] CantonGhwdea83-58-2405Utmrilenk, High-dose Seasonal, Quadrivalent, Preservative Joselin Cope MD Work Phone: [facility] HospitalNowfjpoyhi75-21-5377cknkxfbzz, injectable, quadrivalent, preservative freeBenjamin E Nidia Work Phone: [facility] CantonFzbxej47-85-2839hkqasoqgm nasal, unspecified formulationJacob Mercado MD Work Phone: [facility] CantonIhjmwm71-50-8885ylnorzheq virus vaccine, split virus (incl. purified surface antigen)Sylvester Jacob Other [facility] [employer] Other 966967-88-1853blcbiviho virus vaccine, unspecified formulationDO Sylvester Jacob Work Phone: [facility]10-18-2018influenza, high dose seasonal, preservative-freeBenjamin E Ball Work Phone: [facility] CantonBtewxh69-51-3304ubwxeoeov virus vaccine, unspecified formulationBenjamin E Ball Work Phone: [phone]-JsmxrLakeview Hospital 600 DO Work Phone: [phone]) [phone]yetcky, injectable, quadrivalent, preservative freeBenjamin E Ball Work Phone: [facility] CantonIulcan77-38-0015saytgzoyv, injectable, quadrivalent, preservative freeBenjamin E Ball Work Phone: [facility] CantonKwedmv63-66-2449hoaprimfq, injectable, quadrivalent, preservative Joselin Cope MD Work Phone: [facility] HospitalWquqncgqni33-24-6663bjliupfaucxs polysaccharide vaccine, 23 valentBenjamin E Ball Work Phone: [facility] CantonWysbrl94-65-7667fzxintmgu, high dose seasonal, preservative-freeBenjamin E Ball Work Phone: [facility]onHgmixv44-47-9609byrerrkqu virus vaccine, unspecified formulationBenjamin E Ball Work Phone: mpReg[facility] 600 DO Work Phone: [phone]quy conjugate vaccine, 13 valent Sylvester E Ball Work Phone: [facility] CantonIeupzw64-32-5141occvhqshb nasal, unspecified formulationJacob Mercado MD Work Phone: [facility] CantonRoszyx30-28-0605zbcbjsako virus vaccine, split virus (incl. purified surface antigen)Sylvester Jacob Other [facility] [employer] Other [id number] virus vaccine, unspecified formulationDO Sylvester Jacob Work Phone: [facility]01-03-2017influenza, injectable, quadrivalent, preservative freeBenjamin E Nidia Work Phone: [facility] CantonQycamh81-66-2899iuviotxvq, injectable, quadrivalent, contains preservativeBenjamin E Nidia Work Phone: [facility] CantonKqnewy08-59-6746yovgqbahx, injectable, quadrivalent, preservative Mahsa Mercado MD Work Phone: [facility] CantonErmrof72-23-6686rgdlngwgw virus vaccine, unspecified formulationBenjamin E Nidia Work Phone: [phone]-IlbfsNorth Valley Health Center 781 DO Work Phone: [phone] 186-143205061811-94-8596jgomrthmaajl conjugate vaccine, 13 valent Sylvester Jacob Other [facility]05-16-2016 pneumococcal Conjugate, unspecified formulation; Translations: [Need for prophylactic vaccination against Streptococcus pneumoniae (pneumococcus)] Sylvester Jacob Other [facility] [employer] Other [id number]koi polysaccharide vaccine, 23 valentBenjamin E Nidia Work Phone: [facility] CantonXfertp23-45-0835qrpbpqbvd virus vaccine, unspecified formulationBenjamin E Nidia Work Phone: [phone]-MdezrNorth Valley Health Center 600 DO Work Phone: [phone]) [phone]irqsoitkh polysaccharide vaccine, 23 valentBenjamin Nidia Other [facility]10-22-2014tetanus and diphtheria toxoids, adsorbed, preservative free, for adult use (5 Lf of tetanus toxoid and 2 Lf of diphtheria toxoid)Sylvester Jacob Other [facility]10-01-2014influenza virus vaccine, unspecified formulationBenjamin E Ball Work Phone: [phone]-MeeocLakeview Hospital 600 DO Work Phone: [phone]hd vaccine, Brook Mercado MD Work Phone: [facility] CantonJplwtx39-15-0420lcmudcvmdurj polysaccharide vaccine, 23 valentBenjamin E Ball Work Phone: [facility] CantonYtrfko89-94-1882ixcwpoonnuxk polysaccharide vaccine, 23 valentBenjamin E Ball Work Phone: [facility] CantonWondgl27-07-1175qstqdyozn virus vaccine, unspecified formulationJacob Mercado MD Work Phone: [facility] CantonWyirrc57-63-1842yscdqbwqkpjz polysaccharide vaccine, 23 Yasmeen Mercado MD Work Phone: [facility] CantonLmuygl33-17-4046rehfvkiil, high dose seasonal, preservative-freeBryce Hendrickson MD Work Phone: [facility] Work Phone: [phone]ommto, high dose seasonal, preservative-freeBryce Hendrickson MD Work Phone: [facility] Work Phone: [phone]mzp virus vaccine, unspecified formulationBryce Hendrickson MD Work Phone: [facility] Work Phone: influenza virus vaccine, unspecified formulation Sylvester Jacob Work Phone: [phone]-VqzhmLakeview Hospital 600 DO Work Phone: Comment on above:[id number] Payers DatePayer CategoryPayerPolicy [id number]-jre [id number] supplemental policy (as second payer)[employer] Member Subscriber Plan / Payer (Effective 2018-Present) Name: Renuka Owen Relation to Subscriber: Self Name: Renuka Owen Payer ID: Not on file Group ID: Not on file Type: Not on file Address: [address] [place] [address]88.2.840.667312.1.13.647.2.7.9.065594.127654.19477-18-5313Geccobj Health [id number] 2015Medicare [id number] [id number] Health [id number]-oh7aw[id number] 2...489807.3.57[id number] 2..1.090847.3.579.2.81731-84-7684Xrfkvip6472337 2..1.637180.3.579.2.02148-67-4626Eptupqo5188037 2..1.698541.3.579.2.40223-69-2306Prvbzay1564475 2..1.564855.3.579.2.66495-74-9398Fmutrvk8185688 2.16.840.1.698620.3.579.2.83654-53-9330Fpgoyir6020455 2.16.840.1.553004.3.579.2.20065-19-5098Zsfgsgx6647581 2.16840.1.376677.3.579.2.59953-61-8682Fdqdzup03762829 2.16840.1.610910.3.579.2.540917-37-3027Ufrsfmm95989924 2.840.1.791621.3.579.2.452269-24-1758Glwzrta238787585 2.840.1.735602.3.579.2.53832-66-6568Nydhlym04424358 2.840.1.820928.3.579.2.188691-40-4549Jfijrex85335885 2.840.1.120821.3.579.2.032095-41-8732Ujnlgbs46663376 2.840.1.699017.3.579.2.588388-92-1853Sxczbof17307180 2.840.1.897573.3.579.2.475745-86-9432Mtrqxae27655936 2.840.1.412022.3.579.2.361960-39-7480Tmjacyt5559405 2.840.1.506075.3.579.2.771997-10-8102Migizrj4737723 2.840.1.937240.3.579.2.370657-09-6333Uswzsce6647486 2.16840.1.563712.3.579.2.492796-30-2933Rclbvxh3383005 2.840.1.485818.3.579.2.469424-18-2227Dtxtgyo0740221 2.0.1.504706.3.579.2.035731-12-8551Hhunnbb9471003 2.0.1.289618.3.579.2.440488-58-9365Yhxrxam0635398 2..1.948023.3.579.2.203828-03-6621Qrhmowi800510863 2.0.1.785252.3.579.2.166086-65-4374Qvzoojy927616696 2..1.909151.3.579.2.932268-22-9533Sntonyc694187288 2..1.127588.3.57[id number] 2..1.330[id number] Insurance [id number] [id number]-c4s5-0z04-12j4-60b4xx75f069Xiouvcb94128111 2..1.322704.3.579.2.678Vupgjif01342364 2..1.104760.3.579.2.531 Ovrymuk22506688 2..1.663571.3.579.2.701Vfzniaw81898214 2..1.856465.3.579.2.343Mjtlbug30906229 2.0.1.744900.3.579.2.531 Onejvsz61095713 2..1.464691.3.579.2.035Kzjwelu72687723 2.0.1.292727.3.579.2.531 Social History DateTypeDetailFacilmarietta osteopathic clinicStart: 09-24-2021 End: 38-12-2029Lfkkxdv smoking status NHISNever smoked tobacco (finding) [facility]: 96-52-7267Ken Assigned At BirthFemale [facility]: 03-02-2023 End: 31-28-3479Tfc Assigned At BirthSalem City Hospitaltart: 03-02-2023 End: 51-09-2745Xunmwgx useAlcohol useSalem City Hospitaltart: 03-30-2012 End: 55-47-8814Ifqxmpe use and exposureSmokeless tobacco non-userSalem City Hospitaltart: 04-08-2021 End: 43-46-4150Reepixa intakeCurrent drinker of alcohol (finding)[facility]: 28-55-9561Bburhjf Commentvery seldomSalem City Hospitaltart: 05-19-2486Xqu Assigned At BirthNot on fileSalem City Hospitaltart: 03-02-2023 End: 68-50-2989Bzzwhmq intakeNot AskedTuscarawas Hospital Work Phone: Start: 36-69-0905Vsncseg CommentsocialTuscarawas Hospital Work Phone: Start: 02-20-2023 End: 51-75-4343Szxksrga to SARS-CoV-2 (event)Not sureTuscarawas HospitalStart: 38-96-5789Mgfoix identityIdentifies as female gender (finding) [facility] Work Phone: Start: 03-28-2022 End: 24-90-4679Fxvsu Depression Screening Vvelhnkcge8Txpwdlkhj ClinicStart: 80-65-2524Tqgmkbe CommentrarelyTuscarawas Hospital Work Phone: Start: 13-63-9761Qdlbcsx Commentcaffeine intake: 2-3 cups per day of diet cokeNOMS HealthcareStart: 39-66-2307Dpdvvuvjg beverage intakeEx-drinker (finding)[facility] HealthcareStart: 03-28-2022 End: 55-22-9112UylGqhrfv (finding)[facility]: 06-05-2024 End: 94-64-7915YGWX Follow upSDOH Follow upK[facility]tering Health [facility] Work Phone: NEGATED: Highlighted rowStart: NINFHistory of tobacco usePassive [facility] Work Phone: Medical Equipment Procedure CodeEquipment CodeEquipment Original TextEquipment IdentifierDates Xfg-Gg-U-Kind Implant - [id number]: 08-25-4041Wyvplqd on above: Description: [place] CPX3 Med Height Tissue XlgbaywfCwv-Bd-A-Kind Implant - [id number]: 11-16-3517Aezdysa on above:Description: Natrelle Silicone Filled Breast ImplantExp Tiss 550ml Styl 7200 Med - [id number] Start: 38-02-6759Znx Brst 700ml Styl 20 Smth - [id number]_vgrBswzg: 84-48-3148Upkupcg on above:Description: smooth round high profileSpinal fusion graft kit()[id number])[id number] FDAStart: 62-65-8465Roca- screw internal spinal fixation system, non-sterile+[id number] FDAStart: 98-10-0680Efgu-screw internal spinal fixation system, non-sterile+[id number] FDAStart: 81-31-4234Ufmsooyfb spinal fusion cage, non-sterile ()[id number] FDAStart: 83-35-3239Jmjx-screw internal spinal fixation system, non-sterile+[id number] FDAStart: 24-89-9288Ffvk-screw internal spinal fixation system, non-sterile+[id number] FDAStart: 03-30-2022 Spinal fusion graft kit()[id number])[id number] FDAStart: 21-56-4701Iwaejtmmg spinal fusion cage, sterile ()[id number])[id number] FDAStart: 09-46-1227Rol-Of-A-Kind Implant - [id number]: 88-09-5903Gyeaweo on above:Description: Emma Silicone Filled Breast ImplantImp Brst 375ml Styl 20 Smth - [id number]_onc Start: 61-64-7912Vwzhxkm on above:Description: smooth round high profile Goals DatePatient GoalDesired Activity/State Functional Status LjtuSpbtrecsxfCsiznqPhxhabda58-94-3298Wajijlgqak bxafax906/83[facility] Work Phone: 1([phone]) [phone] signs85 03/07/2025 11:07 AM Aby Dumont, [facility] Work Phone: [phone]) [phone]jccsnoaTuscarawas Hospital Work Phone: 1(925) [phone]bjv eoteje374/[address] [place], [place] 8382410-20-2025[facility] Work Phone: [phone]jpsenbz jdqtut885/[address] [place] [address] Work Phone: 1(394) [phone] signs68 01/30/2025 9:30 AM Ana Maria Mai, [facility] Work Phone: [phone] Hospital Work Phone: [phone] statusPatient Not at Baseline [facility] Work Phone: [phone]agsaelq statusPatient at Baseline [facility] Work Phone: [phone] statusPatient Not at Baseline [facility] Work Phone: [phone] statusPatient at Baseline [facility] Work Phone: [phone] statusPatient at Baseline [facility] Work Phone: [phone] statusPatient is Progressing [facility] Work Phone: [phone] statusPatient is Progressing Toward [facility] Work Phone: [phone] statusPatient is Progressing Toward [facility] Work Phone: [phone] you deaf, or do you have serious difficulty hearingNo 06/20/2020 12:13 PM Janelle Wagner RN NoCThe [facility] SystemXxfzgd64-45-1140Znk you blind, or do you have serious difficulty seeing, even when wearing glassesNo 06/20/2020 12:13 PM Janelle Wagner RN NoCThe [facility] SystemPwbgua86-26-5272Pv you have serious difficulty walking or climbing stairsNo 06/20/2020 12:13 PM Janelle Wagner RN NoCThe [facility] SystemQweyju90-85-4203La you have difficulty dressing or bathingNo 06/20/2020 12:13 PM Janelle Wagner RN NoCThe [facility] SystemWugynq30-37-7267Lswqojx of a physical, mental, or emotional condition, do you have difficulty doing errands alone such as visiting a physician's office or shoppingNo 06/20/2020 12:13 PM Janelle Wagner RN No [facility] Mental Status BovqDumtbjqtbqWiqqpwQnmwvkxw24-44-7292Hkerwdzai functionCognitive Status Patient Not at [facility] Work Phone: [phone]i functionCognitive Status Patient at [facility] Work Phone: [phone] functionCognitive Status Patient at [facility] Work Phone: [phone] functionCognitive Status Patient at [facility] Work Phone: [phone] functionCognitive Status Patient at [facility] Work Phone: [phone] functionCognitive Status Patient at [facility] Work Phone: [phone]) [phone] functionCognitive Status Patient at [facility] Work Phone: [phone] functionCognitive Status Patient at [facility] Work Phone: [phone]d of a physical, mental, or emotional condition, do you have serious difficulty concentrating, remembering, or making decisionsNo 06/20/2020 12:13 PM EST Janelle Cast RN [facility] Clinical Notes 06-19-2020 to 03-07-2025 Note Date & [id number] History of Present illness Narrative* Rakesh Palomares MD - 03/07/2025 11:30 AM EST Images from the original note were not included. PCP: Nidia Barraza: Jonatan PMH: Specialty Problems Cardiology Problems Chest pain Essential hypertension LBBB (left bundle branch block) Mitral regurgitation Left ventricular systolic dysfunction Never smoked tobacco HPI Patient is a 74-year-old female with a past medical history of hypertension, chronic left bundle branch block, mitral regurgitation, LV systolic dysfunction, chronic kidney disease is presenting for evaluation of mitral regurgitation. Of note, the patient had a prolonged hospitalization this [facility] which resulted in sepsis thought to be from colitis and multiorgan failure requiring i ntubation and mechanical ventilation. Fortunately she recovered from this hospitalization and has had to spend quite weeks in a usp but now is living at home. She is able to ambulate with a cane and notices fatigue and dyspnea that have been improving over the past few weeks but continued to be present. She denies chest pain, PND, orthopnea, lower extremity edema, syncope. Full 14 point ROS complete and negative except as noted above. Structural Workup: - NYHA: 2 - Echo: I personally reviewed the ECHO with the following parameters EF Date/Time Value Ref Range Status 02/19/2025 02:19 PM 43 % , mod-severe MR - EKG: I personally review the EKG No results found for this or any previous visit (from the past 4464 hours). - [facility]: Not yet done - CT TAVR: not yet done - Dental clearance: regular dentist visits q6 months, no issues. - EFT 05/07 - [facility] Social History Tobacco Use Smoking status: Never Passive exposure: Never Smokeless tobacco: Never Substance Use Topics Alcohol use: Yes Comment: rarely [Family History] [Family History] Problem Relation Name Age of Onset No Known Problems Mother No Known Problems Father [RX Allergies] [RX Allergies] Allergies Allergen Reactions Penicillins Hives Txdatgq-Bfl-Piq Reductase Inhibitors Hives Atorvastatin Hives and Rash Current Outpatient Medications Medication Instructions aspirin 81 [...] (ULTRAM) 50 mg, 2 times daily PRN Vitals: 03/07/25 1107 BP: 131/83 Pulse: 85 SpO2: 99% Physical Exam: General: Alert, calm, well-developed HEENT: Pupils equal, round, reactive to light and accommodation. Extraocular movements Neck: Supple, without lymphadenopathy or thyromegaly. No carotid bruits. Lymph: No axillary, cervical, supraclavicular, pre-auricular, submental, or occipital lymphadenopathy, Cardiovascular: Regular rate and rhythm, with normal S1 and S2. systolic murmurs 3/6, no rubs or gallops. No JVD. 2+ pulses bilaterally - dorsalis pedis and radial. Lungs: lung clear. No wheezes. No accessory muscle use or cyanosis. No tenderness to palpation. Abdomen: Normoactive bowel sounds. Soft, flat, non-tender, and non-distended. No hepatosplenomegaly; liver span approximately 10 cm. Skin: Warm, dry, well-perfused. No rashes or other lesions. Extremities: 2+ pulses in upper and lower extremities. No lower extremity pain or edema; legs are symmetric in appearance. Neuro: Alert and oriented to person, place, and time. Able to communicate well. 5/5 strength in all extremities bilaterally. Sensation intact in all extremities. Normal gait. Last Labs: Computed eGFR Cre unavailable. One or more values for this score either were not found within the given timeframe or did not fit some other criterion. CBC - No results in last year. _ _ _ _ BMP No results found for requested labs within last 365 days. No results found for requested labs within last 365 days. No results found for requested labs within last 365 days. <No results found for requested labs within last 365 days. No results found for requested labs within last 365 days. No results found for requested labs within last 365 days. No results found for requested labs within last 365 days. CMP - No results in last year. _ _ _ --- _ _ _ _ _ PTT - No results in last year. _ _ _ No results found for: TROPHS , BNP I personally review CBC and BMP KCCQ Questionnaire 1 Heart failure affects different people in different ways. Some feel shortness of breath while others feel fatigue. Please indicate how much you are limited by heart failure (shortness of breath or fatigue) in your ability to do the following activities over the past 2 weeks. PRE PROCEDURE A.) Showering/bathing 5. Not at All B.) Walking 1 block on level ground 4. Slightly C.) Hurrying or Jogging 3. Moderately 2. Over the past 2 weeks, how many times did you have swelling in your feet, ankles or legs when you woke up in the morning? 4. Less than once a week 3. Over the past 2 weeks, on average, how many times has fatigue limited your ability to do what you wanted? 6. Less than once a week 4. Over the past 2 weeks, on average, how many times has shortness of breath limited your ability to do what you wanted? 6. Less than once a week 5. Over the past 2 weeks, on average, how many times have you been forced to sleep sitting up in a chair or with at least 3 pillows to prop you up because of shortness of breath? Never 6. Over the past 2 weeks, how much has your heart failure limited your enjoyment of life? It has not limited my enjoyment of life 7. If you had to spend the rest of your life with your heart failure the way it is right now, how would you feel about this? 4. Mostly satisfied 8. How much does your heart failure affect your lifestyle? Please indicate how your heart failure may have limited yourparticipation in the following activities over the past 2 weeks A.) Hobbies, recreational activities 5. 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 Did not limit at all 5 Meter Walk____11.8 seconds Impression: Patient is a 74-year-old female with a past medical history described above who has chronic systolic heart failure which complicated her recent hospitalization for sepsis and prolonged intubation ICUstay. She also has concomitant severe secondary mitral regurgitation. We believe that improvement of mitral regurgitation could potentially provide symptomatic and mortality benefit in this case. Of note patient is on a beta-gonzalo, lisinopril, Farxiga as part of guideline directed medical therapy. Additionally she has a left bundle branch block but her QRS is less than 150 and therefore the benefit of DISPLAY MANAGER is unclear at this time. We believe she could be a candidate for transcatheter mitral edg e-to-edge repair and a DASHAWN would further clarify anatomic suitability. Plan: -R/LHC with Dr. Hendrickson -DASHAWN with Dr. Hendrickson The overall decision regarding the best treatment for this condition is complex. We discussed options of both surgical mitral valve replacement and transcatheter mitral valve replacement/repair alongwith risks and benefits involved with both of them in detail. We did a multi specialty discussion of this patient in clinic with the cardiac surgeon, nurses and fellows. We discussed all the risks associated with the procedure, including but not limited to stroke, UT, pericardial tamponade, vascular complications, infection and were discussed with the patient. The patient verbalized understanding and decided to proceed with the procedure. We will discuss this patient's case at our Valve Team meeting with representatives from Structural Heart and Cardiac Surgery. Our nurse navigators will contact patient with further diagnostic needs and formal plan. Cosigned by Nnamdi Bee MD at 03/11/2025 1:43 PM EST documented in this [facility] Work Phone: 1([phone] 577-954611-03-2025 NoteRight Eye Reliability was good. Progression has been stable. Foveal threshold was normal. Findings include superior arcuate defect. Left Eye Reliability was good. Progression has been stable. Foveal threshold was normal. Findings include superior nasal step defect, inferior nasal step defect, central scotoma.[facility] HospitalKoumpbpltt20-14-0628 History of Present illness Narrative* Allen Encarnacion, - 03/05/2025 2:15 PM EST Images from the original note [...] such as laser therapy or surgical intervention - Status post (s/p) Hydrus stent both eyes [...] laser capsulotomy, they are to notify their social media marketing specialist promptly if they have a significant change [...] times during the day. documented in this encounterRay County Memorial HospitalXhnfocvcnt12-50-5145 History of Present illness Narrative* ANA Cantu - 02/12/2025 2:45 PM EDT Images from the original note were not included. Orthopedic Office note: NAME: Renuka Owen : 1950 (EST PT) (LAST APPT W/ KEY) - (R) SHOULDER DISCOMFORT SINCE ~07/2019 (5 YRS, 7 MONTHS) ; FLARE UP AFTER 1-MONTH HOSPITAL STAY FOR [place]ITIS 10/2024 (3 MONTHS[place] [place], 02/12/25 IN EPIC MRI 04/29/21 IN EXA MRI 07/22/20 @[facility] 03/26/21 HX (R) SA CORTISONE INJECTION INTERMITTENT [...] the month. F/U after appt with her Mold Stripper to discuss possible SA injection. Questions answered in laymen terms at the bedside. The diagnosis, home exercise plan and any ongoing restrictions/ recommendations reviewed. If unable to be reached in office, I recommend evaluation at nearest Emergency Room if any symptoms worsened or new symptoms develop for requiring urgent evaluation. Visit was preformed using [employer]-submersible pilot speech recognition. documented in this encounterRay County Memorial [id number] History of Present illness Narrative* Bryce Hendrickson MD - 01/30/2025 9:30 AM EDT HPI Patient is in the office for follow-up for history of LV systolic dysfunction with mitral regurgitation and with history of essential hypertension. She was in the hospital October 2024 at [facility] withsepsis and multiorgan failure and requiring intubation mechanical ventilation with ongoing colitis as well. During that admission she was seen by cardiology with indication of severe LV systolic dysfunction ejection fraction was down to 25%. The patient since has recovered and spent 5 weeks in usp and now she is walking with a [...] dysfunction, echocardiogram October 2024 as inpatient and [facility] initially showed EF of 25% with [...] content normal. Judgment: Judgment normal. Allergies Penicillins, Npmpoij-rio-sni reductase inhibitors, and Atorvastatin Current Medications Current [...] exam, discussion and plan. documented in this [facility] Work Phone: 1([phone] 186-978609-30-2025 Instructions* Patient Instructions* Pari Teague LPN - [...] Care Everywhere. * Body Mass Index, Adult (Kyrgyz) documented in this [facility] Work Phone: 1(246) 921-858807-03-2025 Evaluation note* Diagnosis Onset Date Resolution Status [...] 2024 4:07pmAcute kidney injury resolvedSeptember 2024 4:07pm [facility] Work Phone: 1([phone] 799-959907-03-2025 Evaluation note* Diagnosis Onset Date Resolution Status [...] resolvedSeptember 2024 4:07pmAnemiaacuteSeptember 2024 11:36am Chemotherapy-induced peripheral neuropathyacuteSept2024 11:36am Chronic HFrEF (heart failure with reduced ejection fraction)acuteSept2024 11:36amChronic kidney diseaseacuteSept2024 11:36amChronic venous insufficiency of lower extremityacuteSept2024 11:36am HypertensionacuteSept2024 11:36amLumbar stenosis without neurogenic claudicationacuteSept2024 11:36amOpiate analgesic use agreement existsacuteSept2024 11:36amUnsteady gait when walkingacuteSept2024 11:36am [facility] Work Phone: 1([phone]) 802-450507-03-2025 Radiology Diagnostic study [facility] [place] [address] [place] [address] CT Scan Report Signed Patient: Renuka Owen MR#: [id number] : 1950 Acct:[id number] Age/Sex: 73 / F ADM Date: 5 Loc: ER Room: Type: [facility] ER Attending Dr: Copies to: Regina [...] Saravia M.D. 11/02/2024 1:38 PM Dictation Location: [place] [address] Transcribed By: [facility] 11/02/24 1338 Dictated By: Samuel Saravia MD 11/02/241332 Signed By: 11/02/248 [facility] Work Phone: 1(141) 243-114807-03-2025 Radiology Diagnostic study [facility] [place] [address] [place] [address] CT Scan Report Signed Patient: Renuka Owen MR#: [id number] : 1950 Acct:[id number] Age/Sex: 73 / F ADM Date: 5 Loc: ER Room: Type: [facility] ER Attending Dr: Copies to: Regina [...] Saravia M.D. 11/02/2024 1:33 PM Dictation Location: [facility]-- Transcribed By: BJORN 11/02/24 1333 Dictated By: Samuel Saravia MD 11/02/24 1331 Signed By: 11/02/24 1333 [facility] Work Phone: 1(802) [phone] History of Present illness Narrative* Bran Linda [...] since progressed to her ankles. She experiences txgn-yxe-vrydbcp and burning sensations in her left heel [...] Shoulder shrug normal. Motor Examination Strength: Hand chemist water purification strength normal. Lower limb strength normal. Sensory [...] in all four extremities, including at least chemist water purification, finger abductors, biceps, triceps, deltoid, toe flexors [...] 12. This clinical note was created utilizing [employer] documentation system. All information has been thoroughly reviewed, corrected as necessary, and authenticated by the provider to ensure accuracy and completeness. On occasion, [employer] documentation system erroneously drops words or replaces a spoken word with a similar sounding word. Please notify with any questions or concerns regarding this clinical note. documented in this encounterRay County Memorial HospitalCjcsaklpbi80-69-5263 History of Present illness Narrative* Tamy Stone, DPM - 09/28/2024 10:15 AM EDT Images [...] Skechers footwear for activities, particularly walking at [place]. Notes swelling towards the end of [...] LUMBAR FUSION 04/01/2022 L4-L5 MASTECTOMY Left 2011 [place] ARTHROSCOPY KNEE DIAGNOSTIC W/WO SYNOVIAL BX SPX 1994 [place] ARTHROSCOPY KNEE DIAGNOSTIC W/WO SYNOVIAL BX SPX Right 1984 DR. Driver ROTATOR CUFF REPAIR Left 08/02/2017 Dr. 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 Tamy Khan DPM documented in this [facility]05-29-2025 Instructions* Patient Instructions* Tamy Khan DPM - 09/28/2024 10:15 AM EDT As noted documented in this [facility]05-07-2025 History of Present illness Narrative* [...] LUMBAR FUSION 04/01/2022 L4-L5 MASTECTOMY Left 2011 [place] ARTHROSCOPY KNEE DIAGNOSTIC W/WO SYNOVIAL BX SPX 1994 [place] ARTHROSCOPY KNEE DIAGNOSTIC W/WO SYNOVIAL BX SPX [...] understanding. Tamy Khan DPM documented in this encounterRay County Memorial HospitalErfcjrnbxv42-04-6107 Evaluation note* Diagnosis Onset Date Resolution Status [...] mental statusacuteJuly 2024 3:00pm PancolitisacuteJuly 2024 3:00pm [facility] Work Phone: [phone] Evaluation note* Diagnosis Onset Date Resolution Status [...] ICU syndromeacuteJuly 2024 3:00pmSeptic shockacuteJuly 2024 3:00pm [facility] Work Phone: 1([phone]) 115-698105-05-2025 Evaluation note* Diagnosis Onset Date Resolution Status [...] ICU syndromeacuteJuly 2024 6:25pmElevated liver transaminase levelresolved November 14, 2024 6:25pmMetabolic encephalopathyresolvedJuly 2024 6:25pm PancolitisresolvedJuly 2024 6:25pmSeptic shockresolvedJuly 2024 6:25pm [facility] Work Phone: 1([phone]) 840-141104-20-2025 NoteHNO ID: [id number] Author: JACOB MERCADO MD Service: ? Author [...] Value 08/21/2024 34.2 1 (more content not included)...[facility]04-20-2025 History of Present illness Narrative* Jacob [...] 308 RADIOLOGY/OTHER STUDIES: 02/14/2024 Diagnostic right mammogram ([facility]) Benign finding. No change from comparison. Recommend routine mammogram in 12 months. 02/08/2023 Diagnostic right mammogram ([facility]) Benign finding. No change from comparison. Recommend routine mammogram in 12 months. 05/10/2022 Chest CTA ([facility]) No evidence for acute pulmonary embolism, thoracic aortic aneurysm, or aortic dissection. Mild cardiomegaly with trace 3 mm thick pericardial effusion. Mosaic attenuation of the bilateral lungs reflect sequelae of reactive airway inflammation. Moderate bilateral upper and lower lung linear scar. 04/08/2020 CT abdomen/pelvis ([facility]). 6.4 x 3.3 cm soft tissue density [...] advanced left breast cancer diagnosed March 2011. ER/NH negative, HER-2 negative (triplenegative). Status post preop [...] presacral space. The patient was referred to [facility] colorectal surgery (Dr. Lorenzo) and [...] consider referral to neurology for additional recommendations. Jacbo Mercado MD CC: Dr. Jairo Jacob documented in this encounterSelect [facility] Evaluation note* Diagnosis Onset Date Resolution Status [...] 2024 10:26amLeft knee painnoneactive May 2024 10:26am [facility] Work Phone: [phone] Telephone encounter Note* Telephone Encounter - Chuck Cope MD - 07/03/2024 12:07 PM EST prn [facility] HospitalBswefzydae22-95-6495 Miscellaneous Notes* Telephone Encounter - Chuck Cope MD - 07/03/2024 12:07 PM EST prn * Telephone Encounter - Megan Church - 07/03/2024 9:21 AM EST pt cld 07/03/24 to cancel 07/18 appt -did not get CT scan done and has had alot of rehab she needs to finish will call to r/s later documented in this encounterRay County Memorial HospitalOsmvstpfau35-51-9472 Telephone encounter Note* Telephone Encounter - Megan Church - 07/03/2024 9:21 AM EST pt cld 07/03/24 to cancel 07/18 appt -did not get CT scan done and has had alot of rehab she needs to finish will call to r/s later [facility] HospitalOjyayzbkrx69-69-4795 Evaluation note* Diagnosis Onset Date Resolution Status [...] existsacuteMay 2024 10:26amLeft knee painnoneactiveMay 2024 10:26am [facility] Work Phone: 1([phone]) 186-644802-03-2025 Consult note Author Jared Louis [facility]Note Date/TimeFebruary 2024 11:35am [place] [address] Physiatry (Rehab) Consult Note Signed Patient: Renuka Owen MR#: [id number] : 1950 Acct:[id number] Age/Sex: 73 / F Adm Date: 5 Loc: Room: [address] [place] [address] Type: ADM IN Attending Dr: Landon Whitfield [...] She was hoping to go to the [facility] in [place] but they did not have a bed available. She is now looking to possibly come to inpatient rehab. Review of Systems Review of Systems All other systems reviewed & are negative unless noted below or in HPI [facility] Medical History Chronic kidney disease Unsteady gait [...] Calcium 8.7 Magnesium 1.7 L Assessment/Plan (1) Vlsdy-ze-wrmkosx kidney injury: (2) Unsteady gait when walking: [...] chart, including current orders, allied health and learning consultant notes, labs/imaging and performed butts elements of exam and I formulated the plan of care and facilitated the medical decision making. I completed a substantive portion of this encounter, the medical decision makingportion of this note in its entirety, including Allied health note review, nursing note review, learning consultant note review,discussion with nursing and case management, and more than 50% of my time was spent on counseling and coordination of care, time spent 60 minutes Documented By: Jared Louis MD 0930 Signed By: <Electronically signed by Jared Louis MD> 06/05/24 3160 [facility] Work Phone: 1(357) 266-121402-03-2025 Progress note Author Sherin Arellano [facility] ClinicNote Date/TimeFebruary 2024 10:42am [place] [address] Nephrology Progress Note Signed Patient: Renuka Owen MR#: [id number] : 1950 Acct:[id number] Age/Sex: 73 / F Adm Date: 5 Loc: Room: [address] [place] [address] Type: ADM IN Attending Dr: Landon Whitfield MD Copies to: ~ Date of Service: 06/05/2024 Subjective Subjective Narrative: This is a 73-year-old female with medical history of CKD, anemia, orthostatic hypotension, mitral regurgitation, HFrEF, HTN, cervical spondylosis was presented to the emergency room after mechanical fall. Patient was recently admitted at [facility] for LATANYA and was seen by our [...] Skin: No rashes , warm to touch CHEMICAL MANAGER: Awake,Alert, following simple command Musculoskeletal: No swelling or limitation of movement of the large joints Psychiatric: Cooperative, normal mood and affect Objective Intake and Output I&O: Intake & Output 06/02/24 06/03/24 06/04/24 06/05/24 23:59 23:59 23:59 23:59 Intake Total 2099 / 2100 2200 / 2200 1200 / 1200 200 / 200 Balance 2100 / 2100 2200 / 2200 1200 / 1200 200 / 200 Weight 70.5 kg 70.3 kg 71 kg Meds and Allergies Meds: Active Medications Acetaminophen (Acetaminophen 500 Mg Tablet) 500 mg PO Q4H PRN PRN Reason: Pain Stop: 06/01/25 17:07 Last Admin: 06/04/24 20:14 Dose: 500 mg Aspirin (Aspirin 81 Mg Tablet.) 81 mg PO DAILY JUSTYN Stop: 06/02/25 08:59 Last Admin: 06/05/24 09:41 Dose: 81 mg Baclofen (Baclofen 20 Mg Tablet) 20 mg PO QPM JUSTYN Stop: 06/04/25 20:59 Last Admin: 06/04/24 20:14 Dose: 20 mg Carvedilol (Carvedilol 3.125 Mg Tablet) 3.125 mg PO BID.WITH.MEALS JUSTYN Stop: 06/04/25 16:59 Last Admin: 06/05/24 09:41 Dose: 3.125 mg Diphenhydramine HCl (Diphenhydramine 50 Mg/Ml Vial) 25 mg IV-PUSH QHS PRN PRN Reason: Insomnia refractory to baclofen/trazadone Stop: 06/04/25 21:59 Enoxaparin Sodium (Enoxaparin 30 Mg/0.3 Ml Syringe) 30 mg SUBCUT DAILY@10 [facility] Stop: 06/02/25 09:59 Last Admin: 06/05/24 09:42 Dose: 30 mg Fluticasone Propionate (Fluticasone Propionate [place] 120 [place]/16 Gm Bottle) 2 spray NARES-BOTH DAILY PRN PRN Reason: NASAL CONGESTION Stop: 06/02/25 08:59 Last Admin: 06/03/24 11:32 Dose: 2 spray Gabapentin (Gabapentin 600 Mg Tablet) 600 mg PO TID [facility] Stop: 06/03/25 13:59 Last Admin: 06/05/24 09:42 Dose: 600 mg Montelukast Sodium (Montelukast 10 Mg Tablet) 10 mg PO [facility] Stop: 06/01/25 21:59 Last Admin: 06/04/24 20:14 Dose: 10 mg Pantoprazole Sodium (Pantoprazole 40 Mg Tablet.) 40 mg PO BID.AC.BKFAST.SUPPER [facility] Stop: 06/02/25 07:29 Last Admin: 06/05/24 06:13 Dose: 40 mg Sodium Chloride (Sodium Chloride 0.9 % 10 Ml Syringe) 0 ml IV-PUSH PRN PRN PRN Reason: Flush Stop: 06/01/25 11:38 Last Admin: 06/01/24 12:07 Dose: 10 ml Torsemide (Torsemide 20 Mg Tablet) 20 mg PO DAILY@0800 [facility] Stop: 06/05/25 07:59 Last Admin: 06/05/24 09:42 Dose: 20 mg Trazodone HCl (Trazodone 100 Mg Tablet) 100 mg PO [facility] Stop: 06/04/25 19:59 Last Admin: 06/04/24 20:14 [...] where applicable. A&P - Nephrology Assessment/Plan (1) Bdudj-ej-jhgmbds kidney injury: Assessment/Problem Details: She has LATANYA [...] signed by Sherin Arellano MD> 06/05/24 1042 [facility] Work Phone: 1(299) 169-149002-03-2025 [place] [address] Physiatry (Rehab) Consult Note Signed Patient: Renuka Owen MR#: [id number] : 1950 Acct:[id number] Age/Sex: 73 / F Adm Date: 5 Loc: 3T Room: [address] [place] [address] Type: ADM IN Attending Dr: Landon Whitfield [...] She was hoping to go to the [facility] in [place] but they did not have a bed available. She is now looking to possibly come to inpatient rehab. Review of Systems Review of Systems All other systems reviewed & are negative unless noted below or in HPI [facility] Medical History Chronic kidney disease Unsteady gait [...] Calcium 8.7 Magnesium 1.7 L Assessment/Plan (1) Etphd-mv-juhewni kidney injury: (2) Unsteady gait when walking: [...] chart, including current orders, allied health and learning consultant notes, labs/imaging and performed butts elements of exam and I formulated the plan of care and facilitated the medical decision making. I completed a substantive portion of this encounter, the medical decision makingportion of this note in its entirety, including Allied health note review, nursing note review, learning consultant note review,discussion with nursing and case management, and more than 50% of my time was spent on counseling and coordination of care, time spent 60 minutes Documented By: Jared Louis MD 0930 Signed By: 06/05/24 1135 [facility]02-03-20[place] [address] Nephrology Progress Note Signed Patient: Renuka Owen MR#: [id number] : 1950 Acct:[id number] Age/Sex: 73 / F Adm Date: Loc: Room: [address] [place] [address] Type: ADM IN Attending Dr: Landon Whitfield MD Copies to: ~ Date of Service: 06/05/2024 Subjective Subjective Narrative: This is a 73-year-old female with medical history of CKD, anemia, orthostatic hypotension, mitral regurgitation, HFrEF, HTN, cervical spondylosis was presented to the emergency room after mechanical fall. Patient was recently admitted at [facility] for LATANYA and was seen by our [...] Skin: No rashes , warm to touch CHEMICAL MANAGER: Awake,Alert, following simple command Musculoskeletal: No swelling or limitation of movement of the large joints Psychiatric: Cooperative, normal mood and affect Objective Intake and Output I&O: Intake & Output 06/02/24 06/03/24 06/04/24 06/05/24 23:59 23:59 23:59 23:59 Intake Total 2099 / 2099 2200 / 2200 1200 / 1200 200 / 200 Balance 2099 / 2099 2200 / 2200 1200 / 1200 200 / 200 Weight 70.5 kg 70.3 kg 71 kg Meds and Allergies Meds: Active Medications Acetaminophen (Acetaminophen 500 Mg Tablet) 500 mg PO Q4H PRN PRN Reason: Pain Stop: 06/01/25 17:07 Last Admin: 06/04/24 20:14 Dose: 500 mg Aspirin (Aspirin 81 Mg Tablet.) 81 mg PO DAILY [facility] Stop: 06/02/25 08:59 Last Admin: 06/05/24 09:41 Dose: 81 mg Baclofen (Baclofen 20 Mg Tablet) 20 mg PO QPM [facility] Stop: 06/04/25 20:59 Last Admin: 06/04/24 20:14 Dose: 20 mg Carvedilol (Carvedilol 3.125 Mg Tablet) 3.125 mg PO BID.WITH.MEALS [facility] Stop: 06/04/25 16:59 Last Admin: 06/05/24 09:41 Dose: 3.125 mg Diphenhydramine HCl (Diphenhydramine 50 Mg/Ml Vial) 25 mg IV-PUSH QHS PRN PRN Reason: Insomnia refractory to baclofen/trazadone Stop: 06/04/25 21:59 Enoxaparin Sodium (Enoxaparin 30 Mg/0.3 Ml Syringe) 30 mg SUBCUT DAILY@10 [facility] Stop: 06/02/25 09:59 Last Admin: 06/05/24 09:42 Dose: 30 mg Fluticasone Propionate (Fluticasone Propionate [place] 120 [place]/16 Gm Bottle) 2 spray NARES-BOTH DAILY PRN PRN Reason: NASAL CONGESTION Stop: 06/02/25 08:59 Last Admin: 06/03/24 11:32 Dose: 2 spray Gabapentin (Gabapentin 600 Mg Tablet) 600 mg PO TID [facility] Stop: 06/03/25 13:59 Last Admin: 06/05/24 09:42 Dose: 600 mg Montelukast Sodium (Montelukast 10 Mg Tablet) 10 mg PO [facility] Stop: 06/01/25 21:59 Last Admin: 06/04/24 20:14 Dose: 10 mg Pantoprazole Sodium (Pantoprazole 40 Mg Tablet.Dr) 40 mg PO BID.AC.BKFAST.SUPPER [facility] Stop: 06/02/25 07:29 Last Admin: 06/05/24 06:13 Dose: 40 mg Sodium Chloride (Sodium Chloride 0.9 % 10 Ml Syringe) 0 ml IV-PUSH PRN PRN PRN Reason: Flush Stop: 06/01/25 11:38 Last Admin: 06/01/24 12:07 Dose: 10 ml Torsemide (Torsemide 20 Mg Tablet) 20 mg PO DAILY@0800 [facility] Stop: 06/05/25 07:59 Last Admin: 06/05/24 09:42 Dose: 20 mg Trazodone HCl (Trazodone 100 Mg Tablet) 100 mg PO [facility] Stop: 06/04/25 19:59 Last Admin: 06/04/24 20:14 [...] where applicable. A&P - Nephrology Assessment/Plan (1) Rnval-uy-fjyzzsy kidney injury: Assessment/Problem Details: She has LATANYA [...] MD 06/05/24 1041 Signed By: 06/05/24 1042 [facility]02-02-2025 Progress note Author Isaiah [facility]jia [facility] Date/TimeFebruary 2024 8:00pm [place] [address] Hospitalist Progress Note Signed Patient: Renuka Owen MR#: [id number] : 1950 Acct:[id number] Age/Sex: 73 / F Adm Date: 5 Loc: 3T Room: [address] [place] [address] Type: ADM IN Attending Dr: Isaiah Mejia [...] and she is agreeable and looking at correction facilities at discharge. Medically she will be [...] spray 06/02/24 09:00 06/03/24 11:32 Fluticasone Propionate [place] 120 [place]/16 Gm Bottle NARES-BOTH 06/02/25 08:59 2 spray DAILY PRN Administration NASAL CONGESTION Gabapentin 600 mg 06/03/24 14:00 06/04/24 12:59 Gabapentin 600 Mg Tablet PO 06/03/25 13:59 600 mg TID [facility] Administration Montelukast Sodium 10 mg 06/01/24 22:00 06/03/24 20:52 Montelukast 10 Mg Tablet PO 06/01/25 21:59 10 mg HS [facility] Administration Pantoprazole Sodium 40 mg 06/02/24 07:30 06/04/24 16:42 Pantoprazole 40 Mg Tablet.Dr PO 06/02/25 07:29 40 mg BID.AC.BKFAST.SUPPER [facility] Administration Sodium Chloride 0 ml 06/01/24 11:39 06/01/24 12:07 Sodium Chloride 0.9 % 10 Ml Syringe IV-PUSH 06/01/25 11:38 10 ml PRN PRN Administration Flush Torsemide 20 mg 06/05/24 08:00 Torsemide 20 Mg Tablet PO 06/05/25 07:59 DAILY@0800 [facility] Trazodone HCl 100 mg 06/04/24 19:45 Trazodone 100 Mg Tablet PO 06/04/25 19:44 HS [facility] A&P - Hospitalist Assessment/Plan (1) Nxvrq-px-avmnrro kidney injury: (2) Contusion: (3) Generalized weakness: Plan . Documented By: Isaiah Mejia DO 06/04/24 19 52 Signed By: <Electronically signed by Isaiah Mejia DO> 06/04/241999 [facility] Work Phone: 1(765) 696-976902-02-2025 Progress note Author [facility] Date[facility]TimeFebruary 2024 7:52pm [place] [id number] Hospitalist Progress Note Signed Patient: Renuka Owen MR#: [id number] : 1950 Acct:[id number] Age/Sex: 73 / F Adm Date: 5 Loc: Room: [address] [place] [address] Type: ADM IN Attending Dr: Isaiah Mejia [...] mastectomy, and cholecystectomy who initially presented to [facility] on 06/01/24 for concerns regarding a fall [...] Propionate 2 spray 06/02/24 09:00 Fluticasone Propionate [place] 120 [place]/16 Gm Bottle NARES-BOTH 06/02/25 08:59 DAILY PRN NASAL CONGESTION Melatonin 10 mg 06/01/24 18:01 06/02/24 20:42 Melatonin 5 Mg Tablet PO 06/01/25 18:00 10 mg QHS PRN Administration Sleep Montelukast Sodium 10 mg 06/01/24 22:00 06/02/24 20:42 Montelukast 10 Mg Tablet PO 06/01/25 21:59 10 mg HS [facility] Administration Pantoprazole Sodium 40 mg 06/02/24 07:30 06/03/24 05:19 Pantoprazole 40 [address] Tablet.Dr PORRAS 06/02/25 07:29 40 mg BID.AC.BKFAST.SUPPER [facility] Administration Sodium Chloride 0 ml 06/01/24 11:39 06/01/24 12:07 Sodium Chloride 0.9 % 10 Ml Syringe IV-PUSH 06/01/25 11:38 10 ml PRN PRN Administration Flush Trazodone HCl 50 mg 06/01/24 22:00 06/02/24 20:42 Trazodone 50 Mg Tablet PO 06/01/25 21:59 50 mg HS [facility] Administration A&P - Hospitalist Assessment/Plan (1) Ilsgc-jp-hlklldi kidney injury: (2) Contusion: (3) Generalized weakness: Plan . <Statement entered by Isaiah Mejia DO - 06/04/24 19:52> I personally saw and examined patient at bedside today. Case was discussed and coordinated in conjunction with medical insurance claims processor. I agree with management as noted therein. [...] <Electronically signed by MD AMBER Carver> 06/03/24 [facility]4 [facility] Work Phone: 1([phone]) 365-393802-02-2025 History and physical note Author Isaiah Mejia [facility] Date/TimeFebruary 2024 7:50pm [place] [address] Hospitalist H&P Signed Patient: Renuka Owen MR#: [id number] : 1950 Acct:[id number] Age/Sex: 73 / F Adm Date: 5 Loc: Room: [address] [place] [address] Type: ADM IN Attending Dr: Isaiah Mejia [...] mastectomy, and cholecystectomy who initially presented to [facility] on 06/01/24 for concerns regarding a fall [...] negative unless noted below or in HPI [facility] Medical History Chronic kidney disease Unsteady gait [...] % (Auto) 10.3 % (.) 06/01/24 12:05 [place] % (Auto) 7.2 % (.) 06/01/24 12:05 Eos % (Auto) 2.3 % (.) 06/01/24 12:05 Baso % (Auto) 0.5 % (.) 06/01/24 12:05 Nucleat RBC Rel Count 0.1 /100 WBC (0-0.5) 06/01/24 12:05 Neut # (Auto) 7.5 x10E3/uL (1.8-7.7) 06/01/24 12:05 Lymph # (Auto) 1.0 x10E3/uL (1.00-4.8) 06/01/24 12:05 [place] # (Auto) 0.7 x10E3/uL (0.0-0.8) 06/01/24 12:05 [...] 06/01/24 12:05 Assessment & Plan Assessment/Plan (1) Romtc-ez-zvzefzx kidney injury: (2) Contusion: (3) Generalized weakness: [...] Case was discussed coordinated conjunction with medical insurance claims processor. I agree with management as noted therein. [...] <Electronically signed by MD AMBER Carver> 06/01/[address] [place] [address] Work Phone: 1(716) 896-338702-02-2025 [place] [address] Hospitalist Progress Note Signed Patient: Renuka Owen MR#: [id number] : 1950 Acct:[id number] Age/Sex: 73 / F Adm Date: 5 Loc: 3T Room: [address] [place] [address] Type: ADM IN Attending Dr: Isaiah Mejia [...] and she is agreeable and looking at correction facilities at discharge. Medically she will be [...] spray 06/02/24 09:00 06/03/24 11:32 Fluticasone Propionate [place] 120 [place]/16 Gm Bottle NARES-BOTH 06/02/25 08:59 2 spray [...] HS [facility] A&P - Hospitalist Assessment/Plan (1) Miith-kx-usqguvf kidney injury: (2) Contusion: (3) Generalized weakness: Plan . Documented By: Isaiah Mejia DO 06/04/24 19 52 Signed By: 06/04/241999 [facility]02-02-2025 [place] [address] Hospitalist Progress Note Signed Patient: Renuka Owen MR#: [id number] : 1950 Acct:[id number] Age/Sex: 73 / F Adm Date: 5 Loc: Room: [address] [place] [address] Type: ADM IN Attending Dr: Isaiah Mejia [...] mastectomy, and cholecystectomy who initially presented to [facility] on 06/01/24 for concerns regarding a fall [...] Propionate 2 spray 06/02/24 09:00 Fluticasone Propionate [place] 120 [place]/16 Gm Bottle NARES-BOTH 06/02/25 08:59 DAILY PRN [...] [facility] Administration A&P - Hospitalist Assessment/Plan (1) Lshzm-vf-dtebgkk kidney injury: (2) Contusion: (3) Generalized weakness: Plan . I personally saw and examined patient at bedside today. Case was discussed and coordinated in conjunction with medical insurance claims processor. I agree with management as noted therein. Nephrology will be consulted to assist in hypertensive and diuretic management. Maintain IV fluid hydration and resume medications gradually as tolerated as undoubtedly has need for GDMT for reduced ejection fraction heart failure will have some diuretic needed at baseline to be titrated gradually. Documented By: Isaiah Mejia DO 06/03/2402 27 Signed By: 06/04/24195106/03/24 1034 [facility]02-02-2025 [place] [address] Hospitalist H&P Signed Patient: Renuka Owen MR#: [id number] : 1950 Acct:[id number] Age/Sex: 73 / F Adm Date: 5 Loc: Room: [address] [place] [address] Type: ADM IN Attending Dr: Isaiah Mejia [...] mastectomy, and cholecystectomy who initially presented to [facility] on 06/01/24 for concerns regarding a fall [...] negative unless noted below or in HPI [facility] Medical History Chronic kidney disease Unsteady gait [...] % (Auto) 10.3 % (.) 06/01/24 12:05 [place] % (Auto) 7.2 % (.) 06/01/24 12:05 Eos % (Auto) 2.3 % (.) 06/01/24 12:05 Baso % (Auto) 0.5 % (.) 06/01/24 12:05 Nucleat RBC Rel Count 0.1 /100 WBC (0-0.5) 06/01/24 12:05 Neut # (Auto) 7.5 x10E3/uL (1.8-7.7) 06/01/24 12:05 Lymph # (Auto) 1.0 x10E3/uL (1.00-4.8) 06/01/24 12:05 [place] # (Auto) 0.7 x10E3/uL (0.0-0.8) 06/01/24 12:05 [...] 06/01/24 12:05 Assessment & Plan Assessment/Plan (1) Lzlnr-qa-uqcwymj kidney injury: (2) Contusion: (3) Generalized weakness: [...] Case was discussed coordinated conjunction with medical insurance claims processor. I agree with management as noted therein. [...] DO 06/01/24 14 39 Signed By: 06/04/24194906/01/24 1510 [facility]02-02-2025 Progress note Author Sherin Arellano [facility] Date/TimeFebruary 2024 11:36am [place] [address] Nephrology Progress Note Signed Patient: Renuka Owen MR#: [id number] : 1950 Acct:[id number] Age/Sex: 73 / F Adm Date: 5 Loc: Room: [address] [place] [address] Type: ADM IN Attending Dr: Isaiah Mejia DO Copies to: ~ Date of Service: 06/04/2024 Subjective Subjective Narrative: This is a 73-year-old female with medical history of CKD, anemia, orthostatic hypotension, mitral regurgitation, HFrEF, HTN, cervical spondylosis was presented to the emergency room after mechanical fall. Patient was recently admitted at [facility] for LATANYA and was seen by our [...] Skin: No rashes , warm to touch CHEMICAL MANAGER: Awake,Alert, following simple command Musculoskeletal: No swelling [...] 81 Mg Tablet.Dr) 81 mg PO DAILY [facility] Stop: 06/02/25 08:59 Last Admin: 06/04/24 08:24 Dose: 81 mg Baclofen (Baclofen 20 Mg Tablet) 20 mg PO QHS [facility] Stop: 06/03/25 21:59 Last Admin: 06/03/24 21:23 Dose: 20 mg Carvedilol (Carvedilol 6.25 Mg Tablet) 6.25 mg PO BID.WITH.MEALS [facility] Stop: 06/04/25 10:59 Last Admin: 06/04/24 11:23 Dose: 6.25 mg Enoxaparin Sodium (Enoxaparin 30 Mg/0.3 Ml Syringe) 30 mg SUBCUT DAILY@10 [facility] Stop: 06/02/25 09:59 Last Admin: 06/04/24 09:50 Dose: Not Given Fluticasone Propionate (Fluticasone Propionate [place] 120 [place]/16 Gm Bottle) 2 spray NARES-BOTH DAILY PRN [...] 40 Mg Tablet.Dr) 40 mg PO BID.AC.BKFAST.SUPPER [facility] Stop: 06/02/25 07:29 Last Admin: 06/04/24 05:32 Dose: 40 mg Sodium Chloride (Sodium Chloride 0.9 % 10 Ml Syringe) 0 ml IV-PUSH PRN PRN PRN Reason: Flush Stop: 06/01/25 11:38 Last Admin: 06/01/24 12:07 Dose: 10 ml Trazodone HCl (Trazodone 50 Mg Tablet) 50 mg PO HS [facility] Stop: 06/01/25 21:59 Last Admin: 06/03/24 [...] where applicable. A&P - Nephrology Assessment/Plan (1) Lxbai-gn-duhdvgs kidney injury: Assessment/Problem Details: She has LATANYA [...] signed by Sherin Arellano MD> 06/04/24 1136 [facility] Work Phone: 1(100) 765-861602-02-2025 [place] [address] Nephrology Progress Note Signed Patient: Renuka Owen MR#: [id number] : 1950 Acct:[id number] Age/Sex: 73 / F Adm Date: 5 Loc: Room: 9D1901-1 Type: ADM IN Attending Dr: Isaiah Mejia DO Copies to: ~ Date of Service: 06/04/2024 Subjective Subjective Narrative: This is a 73-year-old female with medical history of CKD, anemia, orthostatic hypotension, mitral regurgitation, HFrEF, HTN, cervical spondylosis was presented to the emergency room after mechanical fall. Patient was recently admitted at [facility] for LATANYA and was seen by our [...] Skin: No rashes , warm to touch CHEMICAL MANAGER: Awake,Alert, following simple command Musculoskeletal: No swelling [...] 81 Mg Tablet.) 81 mg PO DAILY [facility] Stop: 06/02/25 08:59 Last Admin: 06/04/24 08:24 Dose: 81 mg Baclofen (Baclofen 20 Mg Tablet) 20 mg PO QHS [facility] Stop: 06/03/25 21:59 Last Admin: 06/03/24 21:23 Dose: 20 mg Carvedilol (Carvedilol 6.25 Mg Tablet) 6.25 mg PO BID.WITH.MEALS [facility] Stop: 06/04/25 10:59 Last Admin: 06/04/24 11:23 Dose: 6.25 mg Enoxaparin Sodium (Enoxaparin 30 Mg/0.3 Ml Syringe) 30 mg SUBCUT DAILY@10 [facility] Stop: 06/02/25 09:59 Last Admin: 06/04/24 09:50 Dose: Not Given Fluticasone Propionate (Fluticasone Propionate [place] 120 [place]/16 Gm Bottle) 2 spray NARES-BOTH DAILY PRN PRN Reason: NASAL CONGESTION Stop: 06/02/25 08:59 Last Admin: 06/03/24 11:32 Dose: 2 spray Gabapentin (Gabapentin 600 Mg Tablet) 600 mg PO TID [facility] Stop: 06/03/25 13:59 Last Admin: 06/04/24 08:24 Dose: 600 mg Melatonin (Melatonin 5 Mg Tablet) 10 mg PO QHS PRN PRN Reason: Sleep Stop: 06/01/25 18:00 Last Admin: 06/03/24 20:52 Dose: 10 mg Montelukast Sodium (Montelukast 10 Mg Tablet) 10 mg PO [facility] Stop: 06/01/25 21:59 Last Admin: 06/03/24 20:52 Dose: 10 mg Pantoprazole Sodium (Pantoprazole 40 Mg Tablet.Dr) 40 mg PO BID.AC.BKFAST.SUPPER [facility] Stop: 06/02/25 07:29 Last Admin: 06/04/24 05:32 Dose: 40 mg Sodium Chloride (Sodium Chloride 0.9 % 10 Ml Syringe) 0 ml IV-PUSH PRN PRN PRN Reason: Flush Stop: 06/01/25 11:38 Last Admin: 06/01/24 12:07 Dose: 10 ml Trazodone HCl (Trazodone 50 Mg Tablet) 50 mg PO [facility] Stop: 06/01/25 21:59 Last Admin: 06/03/24 [...] where applicable. A&P - Nephrology Assessment/Plan (1) Ebnct-er-rsvkltm kidney injury: Assessment/Problem Details: She has LATANYA [...] Sherin Arellano MD 06/04/24 1131 Signed By: 06/04/24 1136 [facility]02-01-2025 Consult note Author Sherin [facility]llano [facility] Date/TimeFebruary 2024 10:33am [place] [address] Nephrology Consult Note Signed Patient: Renuka Owen MR#: [id number] : 1950 Acct:[id number] Age/Sex: 73 / F Adm Date: 5 Loc: Room: [address] [place] [address] Type: ADM IN Attending Dr: Isaiah Mejia [...] mechanical fall. Patient was recently admitted at [facility] for LATANYA and was seen by our [...] polydipsia Dermatological: denies any itching or rash [facility] Medical History Chronic kidney disease Unsteady gait [...] 81 Mg Tablet.) 81 mg PO DAILY [facility] Stop: 06/02/25 08:59 Last Admin: 06/03/24 08:08 Dose: 81 mg Enoxaparin Sodium (Enoxaparin 30 Mg/0.3 Ml Syringe) 30 mg SUBCUT DAILY@10 [facility] Stop: 06/02/25 09:59 Last Admin: 06/03/24 08:08 Dose: 30 mg Fluticasone Propionate (Fluticasone Propionate [place] 120 [place]/16 Gm Bottle) 2 spray NARES-BOTH DAILY PRN PRN Reason: NASAL CONGESTION Stop: 06/02/25 08:59 Sodium Chloride (0.9% Sodium Chloride 1,000 Ml) 1,000 mls @ 100 mls/hr IV .Q10H [facility] Stop: 06/01/25 13:44 Last Admin: 06/03/24 08:08 Dose: 100 mls/hr Melatonin (Melatonin 5 Mg Tablet) 10 mg PO QHS PRN PRN Reason: Sleep Stop: 06/01/25 18:00 Last Admin: 06/02/24 20:42 Dose: 10 mg Montelukast Sodium (Montelukast 10 Mg Tablet) 10 mg PO HS [facility] Stop: 06/01/25 21:59 Last Admin: 06/02/24 20:42 Dose: 10 mg Pantoprazole Sodium (Pantoprazole 40 Mg Tablet.Dr) 40 mg PO BID.AC.BKFAST.SUPPER [facility] Stop: 06/02/25 07:29 Last Admin: 06/03/24 05:19 Dose: 40 mg Sodium Chloride (Sodium Chloride 0.9 % 10 Ml Syringe) 0 ml IV-PUSH PRN PRN PRN Reason: Flush Stop: 06/01/25 11:38 Last Admin: 06/01/24 12:07 Dose: 10 ml Trazodone HCl (Trazodone 50 Mg Tablet) 50 mg PO HS [facility] Stop: 06/01/25 21:59 Last Admin: 06/02/24 [...] Skin: No rashes , warm to touch CHEMICAL MANAGER: Awake,Alert, following simple command Musculoskeletal: No swelling [...] where applicable. A&P - Nephrology Assessment/Plan (1) Lkotq-nz-xwoefym kidney injury: Assessment/Problem Details: She has LATANYA [...] <Electronically signed by Sherin Arellano MD> 06/03/24 [facility] Work Phone: 1(785) 517-353002-01-2025 Radiology Diagnostic study [facility] [place] [address] [place], [place] [id number] Ultrasound Report Signed Patient: Renuka Owen MR#: [id number] : 1950 Acct:[id number] Age/Sex: 73 / F ADM Date: 5 Loc: 3T Room: 8S7226-0 Type: ADM IN Attending Dr: Isaiah Mejia [...] findings. Impression dictated by: Saman Vo Jr., D.ORadha06/03/2024 11:19 AM Dictation Location: [place] [address] Tech: Cristiana Torrez Transcribed By: BJORN 06/03/24 111 Dictated By: Saman Vo Jr, DO 06/03/24 111 Signed By: 06/03/24 1119 [facility]02-01-2025 [place] [address] Nephrology Consult Note Signed Patient: Renuka Owen MR#: [id number] : 1950 Acct:[id number] Age/Sex: 73 / F Adm Date: 5 Loc: Room: [address] [place] [address] Type: ADM IN Attending Dr: Isaiah Mejia [...] mechanical fall. Patient was recently admitted at [facility] for LATANYA and was seen by our [...] polydipsia Dermatological: denies any itching or rash [facility] Medical History Chronic kidney disease Unsteady gait [...] Mg/0.3 Ml Syringe) 30 mg SUBCUT DAILY@10 [facility] Stop: 06/02/25 09:59 Last Admin: 06/03/24 08:08 Dose: 30 mg Fluticasone Propionate (Fluticasone Propionate [place] 120 [place]/16 Gm Bottle) 2 spray NARES-BOTH DAILY PRN PRN Reason: NASAL CONGESTION Stop: 06/02/25 08:59 Sodium Chloride (0.9% Sodium Chloride 1,000 Ml) 1,000 mls @ 100 mls/hr IV .Q10H [facility] Stop: 06/01/25 13:44 Last Admin: 06/03/24 08:08 Dose: 100 mls/hr Melatonin (Melatonin 5 Mg Tablet) 10 mg PO QHS PRN PRN Reason: Sleep Stop: 06/01/25 18:00 Last Admin: 06/02/24 20:42 Dose: 10 mg Montelukast Sodium (Montelukast 10 Mg Tablet) 10 mg PO [facility] Stop: 06/01/25 21:59 Last Admin: 06/02/24 20:42 Dose: 10 mg Pantoprazole Sodium (Pantoprazole 40 Mg Tablet.Dr) 40 mg PO BID.AC.BKFAST.SUPPER [facility] Stop: 06/02/25 07:29 Last Admin: 06/03/24 05:19 Dose: 40 mg Sodium Chloride (Sodium Chloride 0.9 % 10 Ml Syringe) 0 ml IV-PUSH PRN PRN PRN Reason: Flush Stop: 06/01/25 11:38 Last Admin: 06/01/24 12:07 Dose: 10 ml Trazodone HCl (Trazodone 50 Mg Tablet) 50 mg PO [facility] Stop: 06/01/25 21:59 Last Admin: 06/02/24 [...] Skin: No rashes , warm to touch CHEMICAL MANAGER: Awake,Alert, following simple command Musculoskeletal: No swelling [...] where applicable. A&P - Nephrology Assessment/Plan (1) Odtns-dk-gngklah kidney injury: Assessment/Problem Details: She has LATANYA [...] MD 06/03/24 0837 Signed By: 06/03/24 1033 [facility]01-31-2025 Progress note Author Isaiah Mejia [facility] Date/TimeJanuary 2024 9:33pm [place] [address] Hospitalist Progress Note Signed Patient: Renuka Owen MR#: [id number] : 1950 Acct:[id number] Age/Sex: 73 / F Adm Date: 5 Loc: Room: [address] [place] [address] Type: ADM IN Attending Dr: Isaiah Mejia [...] mastectomy, and cholecystectomy who initially presented to [facility] on 06/01/24 for concerns regarding a fall and LATANYA. Patient was seen and examined at bedside today. She states that she is feeling better and denies any new concerns today. She has been eating well although shehas had some difficulty [facility]. She denies any headache, dizziness, chest [...] Propionate 2 spray 06/02/24 09:00 Fluticasone Propionate [place] 120 [place]/16 Gm Bottle NARES-BOTH 06/02/25 08:59 DAILY PRN [...] JUSTYN Administration A&P - Hospitalist Assessment/Plan (1) Ztpgh-in-edqjpty kidney injury: (2) Contusion: (3) Generalized weakness: Plan . <Statement entered by Isaiah Mejia DO - 06/02/24 21:33> I personally saw and examined the patient at the bedside this evening. Case wasdiscussed and coordinated in conjunction with medical insurance claims processor and I agree with management as noted [...] <Electronically signed by MD AMBER Carver> 06/02/[address] [place] [address] Work Phone: 1(561) 851-884201-31-2025 [place] [id number] Hospitalist Progress Note Signed Patient: Renuka Owen MR#: [id number] : 1950 Acct:[id number] Age/Sex: 73 / F Adm Date: 5 Loc: 3T Room: 6A2557-1 Type: ADM IN Attending Dr: Isaiah Mejia [...] mastectomy, and cholecystectomy who initially presented to [facility] on 06/01/24 for concerns regarding a fall and LATANYA. Patient was seen and examined at bedside today. She states that she is feeling better and denies any new concerns today. She has been eating well although shehas had some difficulty sleeping due [facility] noise. She denies any headache, dizziness, [...] Propionate 2 spray 06/02/24 09:00 Fluticasone Propionate [place] 120 [place]/16 Gm Bottle NARES-BOTH 06/02/25 08:59 DAILY PRN [...] JUSTYN Administration A&P - Hospitalist Assessment/Plan (1) Bfdpz-yy-oupcprg kidney injury: (2) Contusion: (3) Generalized weakness: Plan . I personally saw and examined the patient at the bedside this evening. Case wasdiscussed and coordinated in conjunction with medical insurance claims processor and I agree with management as noted [...] 10 32 Signed By: 06/02/24 2133 06/02/[address] [place], [place] 8207201-30-2025 Radiology Diagnostic study note [facility] Main [place] [address] [place] [address] CT Scan Report Signed Patient: Renuka Owen MR#: [id number] : 1950 Acct:[id number] Age/Sex: 73 / F ADM Date: 5 Loc: ER Room: Type: [facility] ER Attending Dr: Copies to: Regina [...] ABNORMALITY. Impression dictated by: Saman Vo Jr., D.ORadha06/01/2024 1:14 PM Dictation Location: [place] [address] Transcribed By: [facility] 06/01/24 1314 Dictated By: Saman Vo Jr, 06/01/24 1313 Signed By: 06/01/24 1314 [facility]01-27-2025 History of Present illness Narrative * Allen Suzanne Encarnacion, DO - 05/29/2024 3:00 PM EST Images [...] laser capsulotomy, they are to notify their social media marketing specialist promptly if they have a significant change [...] times during the day. documented in this encounterRay County Memorial [id number] History of Present illness Narrative* Marce Khan DPM - 05/16/2024 2:30 PM EST Images from the original note were not included. Subjective Patient ID: Renuka Owen is a 73 y.o. female who presents for Nail care ( Renuka Owen is a 73 y.o. female who presents for Nail Care.Patient relates she has been letting her nails grow longer so she could kyrgyz them. Last visit 12/2022.). HPI This is [...] Medical History: Diagnosis Date Arthritis Breast cancer ([facility]) 2012 Cataract Cholelithiasis 1991 Chronic nonseasonal allergic rhinitis due to pollen Chronic tension headaches Dehydration GERD with esophagitis Glaucoma ([facility]) HTN (hypertension) ([facility]) Lumbar spondylosis Migraine ([facility]) Pain management 10/2015 Injections in lower back [...] LUMBAR FUSION 04/01/2022 L4-L5 MASTECTOMY Left 2011 [place] ARTHROSCOPY KNEE DIAGNOSTIC W/WO SYNOVIAL BX SPX 1994 [place] ARTHROSCOPY KNEE DIAGNOSTIC W/WO SYNOVIAL BX SPX Right 1984 DR. Driver ROTATOR CUFF REPAIR Left 08/02/2017 Dr. 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 Patient noted relief of [...] understanding. Marce Khan DPM documented in this [facility]01-10-2025 Evaluation note* Diagnosis Onset Date Resolution Status Admit Date Anemia acuteJanuary 2024 1:44pmCervical spondylosis with radiculopathyacute May 12, 2024 1:44pmChronic HFrEF (heart failure with reduced ejection fraction)acuteJanuary 2024 1:44pmChronic kidney diseaseacuteJanuary 2024 1:44pmChronic venous insufficiency of lower extremityacuteJanuary 2024 1:44pmHypertensionacuteJanuary 2024 1:44pmLumbar stenosis without neurogenic claudicationacuteJanuary 2024 1:44pmUnsteady gait when walking acuteJanuary 2024 1:44pmAnemiaacuteJanuary 2024 1:43pmChemotherapy- induced peripheral neuropathyacuteMayuary 2024 1:43pmChronic HFrEF (heart failure with reduced ejection fraction)acuteJanuary 2024 1:43pmChronic kidney diseaseacuteJanuary 2024 1:43pmContusionacuteJanuary 2024 1:43pmHypertensionacuteJanuary 2024 1:43pmImpaired mobility and activities of daily livingacuteMayuary 2024 1:43pmUnsteady gait when walkingacute June 01, 2024 1:21vbXuvtd-al-zuohbyh kidney injuryresolvedMayuary 2024 1:43pmHypokalemiaresolvedJanuary 2024 1:43pmGeneralized weakness deletedMayuary 2024 1:43pmHistory of total left knee replacementacute June 29, 2024 9:30amPes anserinus bursitis of left kneeacuteFebruary 2024 9:30amAnemiaacuteMar 2024 1:18pmCervical spondylosis with radiculopathyacuteMarch 2024 1:18pmChronic HFrEF (heart failure with reduced ejection fraction)acuteMarch 2024 1:18pmChronic kidney diseaseacute July 03, 2024 1:18pmChronic venous insufficiency of lower extremityacuteMarch 2024 1:18pmHypertensionacuteMarch 2024 1:18pmLumbar stenosis without neurogenic claudicationacuteMarch 2024 1:18pmLeft knee painnoneactiveMarch 2024 1:18pm [facility] Work Phone: 1(763) 522-297901-10-2025 Evaluation note* Diagnosis Onset Date Resolution Status Admit Date Anemia acuteJanuary 2024 1:44pmCervical spondylosis with radiculopathyacute May 12, 2024 1:44pmChronic HFrEF (heart failure with reduced ejection fraction)acuteJanuary 2024 1:44pmChronic kidney diseaseacuteJanuary 2024 1:44pmChronic venous insufficiency of lower extremityacuteMayuary 2024 1:44pmHypertensionacuteJanuary 2024 1:44pmLumbar stenosis without neurogenic claudicationacuteJanuary 2024 1:44pmUnsteady gait when walking acuteJanuary 2024 1:44pmAnemiaacuteJanuary 2024 1:43pmChemotherapy- induced peripheral neuropathyacuteMayuary 2024 1:43pmChronic HFrEF (heart failure with reduced ejection fraction)acuteJanuary 2024 1:43pmChronic kidney diseaseacuteJanuary 2024 1:43pmContusionacuteJanuary 2024 1:43pmHypertensionacuteJanuary 2024 1:43pmImpaired mobility and activities of daily livingacuteMayuary 2024 1:43pmUnsteady gait when walkingacute June 01, 2024 1:45ttUhpqf-yu-biiqzde kidney injuryresolvedJanuary 2024 1:43pmHypokalemiaresolvedMayuary 2024 1:43pmGeneralized weakness deletedMayuary 2024 1:43pmHistory of total left knee replacementacute June 29, 2024 9:30amPes anserinus bursitis of left kneeacuteFebruary 2024 9:30amAnemiaacuteJuly 03, 2024 1:18pmCervical spondylosis with radiculopathyacuteJuly 03, 2024 1:18pmChronic HFrEF (heart failure with reduced ejection fraction)acuteJuly 03, 2024 1:18pmChronic kidney diseaseacute July 03, 2024 1:18pmChronic venous insufficiency of lower extremityacuteJuly 03, 2024 1:18pmHypertensionacuteJuly 03, 2024 1:18pmLumbar stenosis without neurogenic claudicationacuteJul 2024 1:18pmLeft knee painnoneactiveJuly 03, 2024 1:18pmHistory of total left knee replacementacuteInsp[facility]elandch 2024 11:07amPes anserinus bursitis of left kneeacuteJul 2024 11:07am [facility] Work Phone: 1(832) 605-198501-02-2025 History of Present illness Narrative* Bryce Hendrickson [...] content normal. Judgment: Judgment normal. Allergies Penicillins, Glkicdv-anj-qah reductase inhibitors, and Atorvastatin Current Medications Current [...] exam, discussion and plan. documented in this [facility] Work Phone: 1(106) 651-953701-02-2025 Instructions* Patient Instructions* Viji Denson LPN - [...] through Care Everywhere. * Heart Healthy Diet (Kyrgyz) documented in this [facility] Work Phone: 1(162) 404-932912-03-2024 Evaluation note* Diagnosis Onset Date Resolution Status [...] 12, 2024 1:44pmUnsteady gait when walkingacuteMayuary 2024 1:44pm [facility] Work Phone: 1(509) 972-835112-03-2024 Evaluation note* Diagnosis Onset Date Resolution Status Admit Date Cervical spondylosis with radiculopathy acuteDeceer 2023 2:12pmChemotherapy-induced peripheral neuropathyacute April 04, 2024 2:12pmOccipital headacheacutecember 2023 2:12pm Unsteadiness on feetacutece2023 2:12pmImpaired mobility [...] 12, 2024 1:44pmUnsteady gait when walkingacuteMayuary 2024 1:56pkEclvy-cs-fucwcvt kidney injuryacuteMayuary 2024 1:43pmAnemiaacute June 01, 2024 1:43pmChemotherapy-induced peripheral neuropathyacuteMayuary 2024 1:43pmChronic HFrEF (heart failure with reduced ejection fraction) acuteJanuary 2024 1:43pmChronic kidney diseaseacuteMayuary 2024 1:43pmContusionacuteMayuary 2024 1:43pmGeneralized weaknessacuteMayuary 2024 1:43pmHypertensionacuteJanuary 2024 1:43pmHypokalemiaacute June 01, 2024 1:43pmImpaired mobility and activities of daily livingacute June 01, 2024 1:43pmUnsteady gait when walkingacuteMayuary 2024 1:43pm [facility] Work Phone: 1(389) 592-893812-03-2024 Evaluation note* Diagnosis Onset Date Resolution Status Admit Date Cervical spondylosis with radiculopathy acuteDember 2023 2:12pmChemotherapy-induced peripheral neuropathyacute April 04, 2024 2:12pmOccipital headacheacuteDece2023 2:12pm Unsteadiness on feetacutece2023 2:12pmImpaired mobility and activities of daily livingdeleteder 2023 2:12pmSinusitisdeleted April 04, 2024 2:12pmGeneralized weaknessacuteDeceer 2023 4:45pmAcute kidney injuryresolvedceer 2023 4:45pmDiarrhearesolvedDecember 2023 4:45pmFallresolvedDeceer 2023 4:45pmAnemiaacuteDecember 2023 2:39pmCervical spondylosis with radiculopathyacuteDeceer 2023 2:39pm Chronic HFrEF (heart failure with reduced ejection fraction)acuteDecember 2023 2:39pmChronic venous insufficiency of lower extremityacuteceer 2023 2:39pmHypertensionacuteceer 2023 2:39pmLumbar stenosis without neurogenic claudicationacuteDeceer 2023 2:39pmMitral regurgitationacute April 12, 2024 2:39pmOccipital headacheacuteDeceer 2023 2:39pm Orthostatic hypotensionacuteDeceer 2023 2:39pmAnemiaacuteJanuary 2024 1:44pmCervical spondylosis with radiculopathyacuteJanuary 2024 1:44pm Chronic HFrEF (heart failure with reduced ejection fraction)acuteJanuary 2024 1:44pmChronic kidney diseaseacuteJanuary 2024 1:44pmChronic venous insufficiency of lower extremityacuteJanuary 2024 1:44pmHypertensionacute May 12, 2024 1:44pmLumbar stenosis without neurogenic claudicationacute May 12, 2024 1:44pmUnsteady gait when walkingacuteJanuary 2024 1:68zhFihks-wh-ifogvgv kidney injuryacuteJanuary 2024 1:43pmAnemiaacute June 01, 2024 1:43pmChemotherapy-induced peripheral neuropathyacuteJanuary 2024 1:43pmChronic HFrEF (heart failure with reduced ejection fraction) acuteJanuary 2024 1:43pmChronic kidney diseaseacuteMayuary 2024 1:43pmContusionacuteMayuary 2024 1:43pmGeneralized weaknessacuteMayuary 2024 1:43pmHypertensionacuteMayuary 2024 1:43pmImpaired mobility and activities of daily livingacuteMayuary 2024 1:43pmUnsteady gait when walkingacuteMayuary 2024 1:43pmHypokalemiaresolvedMayuary 2024 1:43pmHistory of total left knee replacementacuteFebruary 2024 9:30am [facility] Work Phone: 1(906) 924-948712-03-2024 Evaluation note* Diagnosis Onset Date Resolution Status Admit Date Cervical spondylosis with radiculopathy acutece2023 2:12pmChemotherapy-induced peripheral neuropathyacute April 04, 2024 2:12pmOccipital headacheacuteceer 2023 2:12pm Unsteadiness on feetacutece2023 2:12pmImpaired mobility and activities of daily livingdeletedApril 04, 2024 2:12pmSinusitisdeleted April 04, 2024 2:12pmGeneralized weaknessacuteDecember 2023 4:45pmAcute kidney injuryresolvedce2023 4:45pmDiarrhearesolvedDecember 2023 4:45pmFallresolvedDecember 2023 4:45pmAnemiaacuteDecember 2023 2:39pmCervical spondylosis with radiculopathyacuteDeceer 2023 2:39pm Chronic HFrEF (heart failure with reduced ejection fraction)acuteApril 12, 2024 2:39pmChronic venous insufficiency of lower extremityacutece2023 2:39pmHypertensionacuteDecember 2023 2:39pmLumbar stenosis without neurogenic claudicationacutecemb2023 2:39pmMitral regurgitationacute April 12, 2024 2:39pmOccipital headacheacuteDecember 2023 2:39pm Orthostatic hypotensionacuteDecember 2023 2:39pmAnemiaacuteMayuary 2024 1:44pmCervical spondylosis with radiculopathyacuteMayuary 2024 1:44pm Chronic HFrEF (heart failure with reduced ejection fraction)acuteJanuary 2024 1:44pmChronic kidney diseaseacuteMayuary 2024 1:44pmChronic venous insufficiency of lower extremityacuteMay 12, 2024 1:44pmHypertensionacute May 12, 2024 1:44pmLumbar stenosis without neurogenic claudicationacute May 12, 2024 1:44pmUnsteady gait when walkingacuteMayuary 2024 1:15bcRnaro-wh-nyedlzy kidney injuryacuteMayuary 2024 1:43pmAnemiaacute June 01, 2024 1:43pmChemotherapy-induced peripheral neuropathyacuteMayuary 2024 1:43pmChronic HFrEF (heart failure with reduced ejection fraction) acuteMayuary 2024 1:43pmChronic kidney diseaseacuteMayuary 2024 1:43pmContusionacuteMayuary 2024 1:43pmGeneralized weaknessacuteMayuary 2024 1:43pmHypertensionacuteMayuary 2024 1:43pmImpaired mobility and activities of daily livingacuteMayuary 2024 1:43pmUnsteady gait when walkingacuteMayuary 2024 1:43pmHypokalemiaresolvedMayuary 2024 1:43pmHistory of total left knee replacementacuteFebruary 2024 9:30amPes anserinus bursitis of left kneeacuteFebruary 2024 9:30am [facility] Work Phone: 1(948) 817-826812-03-2024 Evaluation note* Diagnosis Onset Date Resolution Status Admit Date Cervical spondylosis with radiculopathy acuteDemb2023 2:12pmChemotherapy-induced peripheral neuropathyacute April 04, 2024 2:12pmOccipital headacheacutece2023 2:12pm Unsteadiness on feetacuteApril 04, 2024 2:12pmImpaired mobility and activities of daily livingdeleteder 2023 2:12pmSinusitisdeleted April 04, 2024 2:12pmGeneralized weaknessacuteDeceer 2023 4:45pmAcute kidney injuryresolvedDeceer 2023 4:45pmDiarrhearesolvedDeceer 2023 4:45pmFallresolvedDeceer 2023 4:45pmAnemiaacuteDecember 2023 2:39pmCervical spondylosis with radiculopathyacuteDnovant health [facility] centerer 2023 2:39pm Chronic HFrEF (heart failure with reduced ejection fraction)acuteWacember 2023 2:39pmChronic venous insufficiency of lower extremityacuteDeceer 2023 2:39pmHypertensionacuteDeceer 2023 2:39pmLumbar stenosis without neurogenic claudicationacuteWaceer 2023 2:39pmMitral regurgitationacute April 12, 2024 2:39pmOccipital headacheacuteceer 2023 2:39pm Orthostatic hypotensionacuteceer 2023 2:39pmAnemiaacuteJanuary 2024 1:44pmCervical spondylosis with radiculopathyacuteJanuary 2024 1:44pm Chronic HFrEF (heart failure with reduced ejection fraction)acuteJanuary 2024 1:44pmChronic kidney diseaseacuteJanuary 2024 1:44pmChronic venous insufficiency of lower extremityacuteMayuary 2024 1:44pmHypertensionacute May 12, 2024 1:44pmLumbar stenosis without neurogenic claudicationacute May 12, 2024 1:44pmUnsteady gait when walkingacuteJanuary 2024 1:52pcQovrk-os-qdxcopy kidney injuryacuteJanuary 2024 1:43pmAnemiaacute June 01, 2024 1:43pmChemotherapy-induced peripheral neuropathyacuteJanuary 2024 1:43pmChronic HFrEF (heart failure with reduced ejection fraction) acuteJanuary 2024 1:43pmChronic kidney diseaseacuteMayuary 2024 1:43pmContusionacuteJanuary 2024 1:43pmGeneralized weaknessacuteMayuary 2024 1:43pmHypertensionacuteJanuary 2024 1:43pmImpaired mobility and activities of daily livingacuteMayuary 2024 1:43pmUnsteady gait when walkingacuteMayuary 2024 1:43pmHypokalemiaresolvedMayuary 2024 1:43pmHistory of total left knee replacementacuteFebruary 2024 9:30amPes anserinus bursitis of left kneeacuteFebruary 2024 9:30amAnemiaacuteInspira Medical Center Vinelandch 2024 1:18pmCervical spondylosis with radiculopathyacuteJulch 2024 1:18pmChronic HFrEF (heart failure with reduced ejection fraction)acuteJulch 2024 1:18pmChronic kidney diseaseacuteJuly 03, 2024 1:18pmChronic venous insufficiency of lower extremityacuteJulch 2024 1:18pmHypertensionacute July 03, 2024 1:18pmLumbar stenosis without neurogenic claudicationacuteJuly 03, 2024 1:18pm [facility] Work Phone: 1(582) 562-491411-26-2024 History of Present illness Narrative* Chuck Cope MD - 03/28/2024 9:00 AM EST Subjective Patient ID: Renuka Owen is a 73 y.o. female who presents for No chief complaint on file. Sinus films showed sinusitis Family History Problem Relation Name Age of Onset Breast cancer Mother Alejandra Redinger Glaucoma Mother Alejandra Redinger Cancer Mother Alejandra Redinger Hearing loss Mother Alejandra Redganga Testicular cancer Father Cleemelia Pink Cancer Father Gadiel Pink Leukemia Brother Active Ambulatory Problems Diagnosis Date Noted Primary open angle glaucoma (POAG) of both eyes, mild stage (CMS/HCC) 02/26/2023 PCO (posterior capsular opacification), bilateral 02/26/2023 Keratoconjunctivitis sicca of both eyes not specified as Sjogren's 06/09/2023 Resolved Ambulatory Problems Diagnosis Date Noted Dry eyes 02/26/2023 Past Medical History: Diagnosis Date Arthritis Breast cancer ([facility]) 2012 Cataract Cholelithiasis 1991 Chronic nonseasonal allergic rhinitis due to pollen Chronic tension headaches Dehydration GERD with esophagitis Glaucoma ([facility]) HTN (hypertension) ([facility]) Lumbar spondylosis Migraine ([facility]) Pain management 10/2015 Past Surgical History: Procedure Laterality Date BACK SURGERY 1982 BREAST RECONSTRUCTION 2011 Procedure:post mastectomy radiation planned;Disease:left breast cancer CATARACT EXTRACTION 10/2021 and 12/2021 CHOLECYSTECTOMY 1976 Cholelithiasis HYSTERECTOMY 1991 KNEE ARTHROPLASTY Left 01/2007 Dr. Miranda KNEE ARTHROPLASTY 01/2007 Dr. Miranda LUMBAR DISCECTOMY 10/08/2021 L4 Sx LUMBAR FUSION 04/01/2022 L4-L5 MASTECTOMY Left 2011 [place] ARTHROSCOPY KNEE DIAGNOSTIC W/WO SYNOVIAL BX SPX 1994 NH ARTHROSCOPY KNEE DIAGNOSTIC W/WO SYNOVIAL BX SPX [...] and plan surgical tx. documented in this [facility]11-26-2024 Miscellaneous Notes* Addendum Note - Michelle Abarca - 03/28/2024 9:00 AM ESTAddended by: MICHELLE ABARCA on: 03/28/2024 01:21 PM Modules accepted: Orders documented in this [facility]11-26-2024 Note* Addendum Note - Michelle Abarca - 03/28/2024 9:00 AM ESTAddended by: MICHELLE ABARCA on: 03/28/2024 01:21 PM Modules accepted: Orders [facility] Work Phone: 1(787) 328-124911-26-2024 Note* Addendum Note - Michelle Abarca - 03/28/2024 9:00 AM ESTAddended by: MICHELLE ABARCA on: 03/28/2024 01:21 PM Modules accepted: Orders [facility] Work Phone: 1(734) 963-856411-06-2024 History of Present illness Narrative* Chuck Cope [...] LUMBAR FUSION 04/01/2022 L4-L5 MASTECTOMY Left 2011 [place] ARTHROSCOPY KNEE DIAGNOSTIC W/WO SYNOVIAL BX SPX 1994 NH ARTHROSCOPY KNEE DIAGNOSTIC W/WO SYNOVIAL BX SPX [...] with the same regimen documented in this encounterRay County Memorial [id number] Evaluation note* Diagnosis Onset Date Resolution Status Admit Date Chemotherapy-induced peripheral neuropat hy acuteOctober 2023 10:47amAllergic rhinitisdeletedOctober 2023 10:47amNasal polyp, posteriordeletedOctober 2023 10:47amTinnitus of both earsdeletedOctober 2023 10:47amCervical spondylosis with radiculopathy acuteDecemb2023 2:12pmChemotherapy-induced peripheral neuropathyacute April 04, 2024 2:12pmOccipital headacheacuteDecemb2023 2:12pm Unsteadiness on feetacutecember 2023 2:12pmImpaired mobility and activities of daily livingdeletedce2023 2:12pmSinusitisdeleted April 04, 2024 2:12pmGeneralized weaknessacuteDecember 2023 [...] May 12, 2024 1:44pmOrthostatic hypotensionacuteJanuary 2024 1:44pm [facility] Work Phone: 1(994) 900-495709-05-2024 Telephone encounter Note* Telephone Encounter - Triny Mart RN - 01/06/2024 11:44 AM EDT Pt calls to ask when her mammogram is due. Pt's record reviewed. Last Mamm done on 02/08/23 @ [facility]. 12 month f/u recommended. Order for Mamm faxed to [facility] on 06/22/23. Pt notified of the above. Advised she call [facility] to schedule. Pt verbalizes understanding and agrees. Triny Mart RN [facility] Work Phone: 1(747) 456-962709-05-2024 Miscellaneous Notes* Telephone Encounter - Triny Mart RN - 01/06/2024 11:44 AM EDT Pt calls to ask when her mammogram is due. Pt's record reviewed. Last Mamm done on 02/08/23 @ [facility]. 12 month f/u recommended. Order for Mamm faxed to [facility] on 06/22/23. Pt notified of the above. Advised she call [facility] to schedule. Pt verbalizes understanding and agrees. Triny Mart RN documented in this encounterSelect [facility] History of Present illness Narrative* Bryce Hendrickson [...] content normal. Judgment: Judgment normal. Allergies Penicillins, Evnlqho-kcw-caj reductase inhibitors, and Atorvastatin Current Medications Current [...] By signing my name below, I, Ofe Howell LPN attest that this documentation has been [...] exam, discussion and plan. [facility] Work Phone: 1(623) 930-778103-14-2024 Instructions* Patient Instructions* Tess Holcomb LPN - [...] Provided instructions on exercise. [facility] Work Phone: 1(135) 761-205202-20-2024 History of Present illness Narrative* Jacob Mercado MD - 06/22/2023 6:21 AM EST PATIENT NAME: Renuka Owen DATE: 06/22/2023 PRIMARY CARE PHYSICIAN: Dr. Sylvester Jacob OTHER PHYSICIANS: Dr. Coley, Dr. Artur Sutherland, Dr. Snyder, Dr. Yetman Portions of this encounter note have been [...] 308 RADIOLOGY/OTHER STUDIES: 02/08/2023 Diagnostic right mammogram ([facility]) Benign finding. No change from comparison. Recommend routine mammogram in 12 months. 05/10/2022 Chest CTA ([facility]) No evidence for acute pulmonary embolism, thoracic aortic aneurysm, or aortic dissection. Mild cardiomegaly with trace 3 mm thick pericardial effusion. Mosaic attenuation of the bilateral lungs reflect sequelae of reactive airway inflammation. Moderate bilateral upper and lower lung linear scar. 04/08/2020 CT abdomen/pelvis ([facility]). 6.4 x 3.3 cm soft tissue density [...] advanced left breast cancer diagnosed March 2011. ER/NH negative, HER-2 negative (triplenegative). Status post preop [...] presacral space. The patient was referred to [facility] colorectal surgery (Dr. Lorenzo) and [...] recommendations. Jacob Mercado MD documented in this encounterSelect [facility] Evaluation note* Encounter Date Diagnosis Assessment Notes [...] have encouraged her to follow-up with a chain person. I will send her to therapy for gait training and leg strengthening. I reviewed the x-ray of the lumbar spine showing good bony alignment good hardware placement and shared these with the patient. I will see her again in 1 month. May,History of lumbar fusion (ICD-10 - Z98.1) May,oor balance (ICD-10 - R26.89) [employer] Other 01-05-2024 Evaluation note* Encounter Date Diagnosis Assessment Notes Treatment Notes Treatment Clinical Notes May, Acute bronchitis due to other sp ecified organisms (ICD-10 - J20.8) Instructed to use Robitussin or Mucinex for cough, saline or Flonase NS for congestion, Tylenol forpain and fever. No improvement, call for office visit. Attend[facility] Other 12-28-2023 Evaluation note* Encounter Date Diagnosis Assessment Notes Treatment Notes Treatment Clinical Notes Apr, Acute bilateral low back pain wi thout sciatica (ICD-10 - M54.50) [facility] Other 12-28-2023 Evaluation note* Encounter Date Diagnosis [...] Apr,History of lumbar fusion (ICD-10 - Z98.1) [facility] Other 12-26-2023 Evaluation note* Encounter Date Diagnosis [...] Apr,History of lumbar fusion (ICD-10 - Z98.1) [facility]end[facility] Other 12-18-2023 Progress note Author Saman Marino [facility] April 19, 2023 2:35pmNote Date/TimeDecember 2022 2:35pm[place] [address] Physiatry(Rehab) Progress Note Signed Patient: Renuka Owen MR#: [id number] : 1950 Acct:[id number] Age/Sex: 72 / F Adm Date: 3 Loc: Room: [address] [place] [address] Type: ADM IN Attending Dr: Saman Marino [...] mg 04/15/23 16:39 Bisacodyl 10 Mg Supp.Rect NH 04/14/24 16:38 DAILY PRN Constipation Calcium Carbonate 1 tab 04/15/23 21:00 04/19/23 09:01 Calcium Carbonate/Vitamin D3 500 Mg/200 Unit Tablet PO 04/14/24 20:59 1 tab BID [facility] Administration Carvedilol 6.25 mg 04/15/23 17:00 04/19/23 09:02 Carvedilol 6.25 Mg Tablet PO 04/14/24 16:59 Not Given BID.WITH.MEALS [facility] Cyclobenzaprine HCl 10 mg 04/15/23 16:34 04/19/23 11:36 Cyclobenzaprine 10 Mg Tablet PO 04/14/24 16:33 10 mg Q8HR PRN Administration Spasms Docusate Sodium 100 mg 04/15/23 16:39 Docusate 100 Mg Capsule PO 04/14/24 16:38 BID PRN Constipation Docusate Sodium 283 mg 04/15/23 16:39 Docusate Enema 283 Mg/5 Ml Enema NH 04/14/24 16:38 DAILY PRN Constipation Enalapril Maleate 2.5 mg 04/15/23 21:00 04/19/23 09:02 Enalapril Maleate 5 Mg Tablet PO 04/14/24 20:59 Not Given BID [facility] Fluticasone Propionate 2 spray 04/15/23 16:34 Fluticasone Propionate [place] 120 [place]/16 Gm Bottle INTRANASAL 04/14/24 16:33 DAILY PRN [...] equipment to enhance the patient's a functional jew Ensure adequate nutrition and hydration Sleep: No issues Pain: Reasonably controlled current regimen Discharge planning: Home tomorrow. I completed a substantive portion of this encounter, the medical decision makingportion of this note in its entirety, including Allied health note review, nursing note review, learning consultant note review,discussion with nursing and case management, and more than 50% of my time was spent on counseling and coordination of care, time spent 35 minutes Patient was personally seen by me, Dr. Marino, on the day of encounter, I reviewed the history and the relevant portions of the chart, including current orders, allied health and learning consultant notes, labs/imaging and performed butts elements of exam and I formulated the plan of care and facilitated the medical decision making. Documented By: Saman Marino MD 04/19/23 1431 Signed By: <Electronically signed by Saman Marino MD> 04/19/23 1431 [facility] Work Phone: 1(230) 401-555112-18-2023 Hospital Discharge instructionsAmbulatory Orders* Initiate Home Health [...] as needed. Your Home Health agency is [facility] ( ). They will contact you 24-48 [...] inform them prior to your appointment.[facility] Work Phone: 1([phone]) 167-471712-16-2023 Progress note Author Saman Marino [facility] April 17, 2023 12:23pmNote Date/TimeDecemb2022 12:23pm[place] [address] Physiatry(Rehab) Progress Note Signed Patient: Renuka Owen MR#: [id number] : 1950 Acct:[id number] Age/Sex: 72 / F Adm Date: 3 Loc: Room: 9R1502-5 Type: ADM IN Attending Dr: Saman Marino [...] mg 04/15/23 16:39 Bisacodyl 10 Mg Supp.Rect NH 04/14/24 16:38 DAILY PRN Constipation Calcium Carbonate 1 tab 04/15/23 21:00 04/17/23 08:43 Calcium Carbonate/Vitamin D3 500 Mg/200 Unit Tablet PO 04/14/24 20:59 1 tab BID [facility] Administration Carvedilol 6.25 mg 04/15/23 17:00 04/17/23 08:45 Carvedilol 6.25 Mg Tablet PO 04/14/24 16:59 Not Given BID.WITH.MEALS [facility] Cyclobenzaprine HCl 10 mg 04/15/23 16:34 04/17/23 08:43 Cyclobenzaprine 10 Mg Tablet PO 04/14/24 16:33 10 mg Q8HR PRN Administration Spasms Docusate Sodium 100 mg 04/15/23 16:39 Docusate 100 Mg Capsule PO 04/14/24 16:38 BID PRN Constipation Docusate Sodium 283 mg 04/15/23 16:39 Docusate Enema 283 Mg/5 Ml Enema NH 04/14/24 16:38 DAILY PRN Constipation Enalapril Maleate 2.5 mg 04/15/23 21:00 04/17/23 08:45 Enalapril Maleate 5 Mg Tablet PO 04/14/24 20:59 Not Given BID [facility] Fluticasone Propionate 2 spray 04/15/23 16:34 Fluticasone Propionate [place] 120 [place]/16 Gm Bottle INTRANASAL 04/14/24 16:33 DAILY PRN [...] equipment to enhance the patient's a functional jew Ensure adequate nutrition and hydration Sleep: No issues Pain: Reasonably controlled current regimen Discharge planning: Home in a week or so. I completed a substantive portion of this encounter, the medical decision makingportion of this note in its entirety, including Allied health note review, nursing note review, learning consultant note review,discussion with nursing and case management, and more than 50% of my time was spent on counseling and coordination of care, time spent 35 minutes Patient was personally seen by me, Dr. Marino, on the day of encounter, I reviewed the history and the relevant portions of the chart, including current orders, allied health and learning consultant notes, labs/imaging and performed butts elements of exam and I formulated the plan of care and facilitated the medical decision making. Documented By: Saman Marino MD 04/17/23 122 Signed By: <Electronically signed by Saman Marino MD> 04/17/231222 [facility] Work Phone: 1(301) 976-899912-15-2023 History and physical note Author Saman Marino [facility] April 16, 2023 1:42pmNote Date/TimeDece2022 11:19[place] [address] Physiatry (Rehab) H&P Signed Patient: Renuka Owen MR#: [id number] : 1950 Acct:[id number] Age/Sex: 72 / F Adm Date: 3 Loc: 5T Room: 3F2060-3 Type: ADM IN Attending Dr: Saman Marino [...] has been using a cane for ambulation. [facility] Medical History Arthritis Breast cancer left DDD [...] Bisacodyl (Bisacodyl 10 Mg Supp.Rect) 10 mg NH DAILY PRN PRN Reason: Constipation Stop: 04/14/24 16:38 Calcium Carbonate (Calcium Carbonate/Vitamin D3 500 Mg/200 Unit Tablet) 1 tab PO BID [facility] Stop: 04/14/24 20:59 [...] Enema 283 Mg/5 Ml Enema) 283 mg NH DAILY PRN PRN Reason: Constipation Stop: 04/14/24 16:38 Enalapril Maleate (Enalapril Maleate 5 Mg Tablet) 2.5 mg PO BID [facility] Stop: 04/14/24 20:59 Last Admin: 04/16/23 08:41 Dose: 2.5 mg Fluticasone Propionate (Fluticasone Propionate [place] 120 [place]/16 Gm Bottle) 2 spray INTRANASAL DAILY PRN PRN Reason: Nasal Congestion Stop: 04/14/24 16:33 Gabapentin (Gabapentin 300 Mg Capsule) 300 mg PO QAM [facility] Stop: 04/15/24 08:59 Last Admin: 04/16/23 08:34 Dose: 300 mg Gabapentin (Gabapentin 300 Mg Capsule) 600 mg PO BID@1400,2200 [facility] Stop: 04/14/24 21:59 Last Admin: 04/15/23 21:11 Dose: 600 mg Hydrochlorothiazide (Hydrochlorothiazide 25 Mg Tablet) 25 mg PO DAILY [facility] Stop: 04/15/24 08:59 Last Admin: 04/16/23 [...] 40 Mg Tablet.Dr) 40 mg PO DAILY [facility] Stop: 04/15/24 08:59 Last Admin: 04/16/23 08:35 Dose: 40 mg Senna/Docusate Sodium (Sennosides/Docusate 8.6-50mg 1 Tab Tablet) 2 tab PO BID [facility] Stop: 04/14/24 20:59 Last Admin: 04/16/23 [...] % (Auto) 67.0 Lymph % (Auto) 18.4 [place] % (Auto) 13.9 Eos % (Auto) 0.3 Baso % (Auto) 0.4 Nucleat RBC Rel Count 0.1 Neut # (Auto) 6.5 Lymph # (Auto) 1.8 [place] # (Auto) 1.4 H Eos # (Auto) [...] 2 weeks Expected Discharge Destination: Home Rehabilitation [facility]: 9 Primary Diagnosis: Lumbar stenosis s/p multilevel fusion [...] additional therapy on as needed basis. Comments: GRASS FARMER to evaluate and treat patient?s cognition, language and communication skills, assess swallow function. Other: Dietitian, Rehab nursing, Wound, P&O, Neuropsychology as needed RATIONALE FOR IRF ADMISSION: Patient has both medical and functional complexities that require 24 hour daily monitoring and intervention from Wrecking Supervisor as well as other consulting physicians including internal medicine as well as 24 hour daily surface grinder nursing - for medical safe / optimal manageme nt. Patient requires interdisciplinary therapy team rehabilitation care including OT, PT, GRASS FARMER, SW, Psychology, Rehab Nursing, requires and can [...] equipment to enhance the patient's a functional jew Ensure adequate nutrition and hydration Sleep: No issues Pain: Reasonably controlled current regimen Discharge planning: Home in a week or so. I spent greater than 35 minutes for services, including [id number] encounter with the patient, discussion of the case, plan of care, and exam; and [id number] activities, such as reviewing pertinent learning consultant documentation, recent therapy notes, laboratory and radiology studies, and discussion of case with care team including physician, nursing, machine adjuster leader case trim, and therapists. More than 50 % of time was spent on patient/family counseling or coordination ofcare. I completed a substantive portion of this encounter, the medical decision makingportion of this note in its entirety, including Allied health note review, nursing note review, learning consultant note review,discussion with nursing and case management, and more than 50% of my time was spent on counseling and coordination of care, time spent 70 minutes Patient was personally seen by me, Dr. Marino, on the day of encounter, within 24hours of rehab admission, reviewed the history and the relevant portions of the chart, including current orders, alliedhealth and learning consultant notes, labs/imaging and performed butts elements of exam and I formulated the plan of care and facilitated the medical decision making. Documented By: Marley Mendieta APRN 04/16/23 1 112 Signed By: <Electronically signed by CASSIA Mendieta> 04/16/23 1158 <Electronically signed by Saman Marino MD> 04/16/23 1342 [facility] Work Phone: 1(624) 995-109411-21-2023 Evaluation note* Encounter Date Diagnosis Assessment Notes Treatment Notes Treatment Clinical Notes Mar, Acute bilateral low back pain wi thout sciatica (ICD-10 - M54.50) [facility] Other 11-16-2023 History of Present illness Narrative* [...] being. She is compensated Bryce Hendrickson MD, [facility] Review of Systems All other systems [...] Left ventricular systolic dysfunction documented in this [facility] Work Phone: 1(107) 296-489011-16-2023 Instructions* Patient Instructions* Priscilla Gramajo LPN - [...] to hold Aspirin asdirected. [facility]: [phone]) 333-473911-08-2023 Evaluation note* Encounter Date Diagnosis Assessment Notes [...] watch for pap results, call patient. Consider BAGMAN/WOMAN referral for possible pessary.. She is having back surgery soon and may consider further photovoltaic testing technician appts after surgery. [facility] Other 10-31-2023 History of Present illness Narrative* Bryce Hendrickson MD - 03/02/2023 10:00 AM EDT Subjective Renuka Owne is a 72 y.o. female Chief Complaint [...] 2.5 mg twice daily. Bryce Hendrickson MD, FACC Review of Systems [...] linked to this encounter. [facility] Work Phone: 1(413) 331-920410-31-2023 Instructions* Patient Instructions* Julito Westbrook LPN - [...] time of your visit. [facility] Work Phone: [phone]) 820-601010-30-2023 Evaluation note* Encounter Date Diagnosis Assessment Notes Treatment Notes Treatment Clinical Notes Jan, Dysuria (ICD-10 - R30.0) [facility] Other 10-26-2023 Evaluation note* Encounter Date Diagnosis [...] Jan,History of lumbar fusion (ICD-10 - Z98.1) [facility] Other 10-23-2023 Evaluation note* Encounter Date Diagnosis Assessment Notes Treatment Notes Treatment Clinical Notes Jan, Acute bilateral low back pain wi thout sciatica (ICD-10 - M54.50) [facility] Other 10-23-2023 Evaluation note* Encounter Date Diagnosis Assessment Notes Treatment Notes Treatment Clinical Notes Jan, Dysuria (ICD-10 - R30.0) [facility] Other 10-02-2023 Evaluation note* Encounter Date Diagnosis Assessment Notes Treatment Notes Treatment Clinical Notes Jan, Osteopenia of left forearm (ICD- 10 - M85.832) [facility] Other 09-21-2023 Evaluation note* Encounter Date Diagnosis [...] Jan,ain in left hip (ICD-10 - M25.552) [facility] Other 09-07-2023 Evaluation note* Encounter Date Diagnosis [...] (ICD-10 - R53.83)check labs: CBC, BS, TSH [facility] Other 04-14-2023 Evaluation note* Encounter Date Diagnosis Assessment Notes Treatment Notes Treatment Clinical Notes Aug, Benign hypertension with chronic kidney disease, 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 [facility] Other 02-21-2023 Evaluation note* Encounter Date Diagnosis Assessment Notes Treatment Notes Treatment Clinical Notes Jun, Spondylolisthesis, lumbar region (ICD-10 - M43.16) At 3 months postop the patient now can leave her brace.She has good relief of Her leg pain. She is very happy with her progress I will see her back in 3 months with an x-ray.Her x-ray today looks good. [facility] Other 01-20-2023 Evaluation note* Encounter Date Diagnosis Assessment Notes Treatment Notes Treatment Clinical Notes May, Dysuria (ICD-10 - R30.0) [facility] Other 01-17-2023 History of Present illness Narrative* [...] pain on 05/10/2022. She was seen at [facility] emergency room and admitted for evaluation. Chest CTA was negative. Cardiac work-up was negative. Apparently she was given IV NSAID, and the painresolved instantly. Most likely she had acute pleurisy. She has had no recurrent symptoms. However,she plans to follow-up with her chain person and is scheduled to undergo a stress [...] 04/08/2021 308 RADIOLOGY/OTHER STUDIES: 05/10/2022 Chest CTA ([facility]) No evidence for acute pulmonary embolism, thoracic aortic aneurysm, or aortic dissection. Mild cardiomegaly with trace 3 mm thick pericardial effusion. Mosaic attenuation of the bilateral lungs reflect sequelae of reactive airway inflammation. Moderate bilateral upper and lower lung linear scar. 02/05/2022 Diagnostic right mammogram ([facility]) Benign finding. No change from comparison. Recommend routine mammogram in 12 months. 04/08/2020 CT abdomen/pelvis ([facility]). 6.4 x 3.3 cm soft tissue density [...] advanced left breast cancer diagnosed March 2011. ER/NH negative, HER-2 negative (triplenegative). Status post preop [...] presacral space. The patient was referred to [facility] colorectal surgery (Dr. Lorenzo) and [...] chest pain 05/10/2022. She was seen at [facility] emergency room and admitted for evaluation. Chest CTA was negative. Cardiac work-up was negative. Apparently she was given IV NSAID, and the pain resolved instantly. Most likely she had acute pleurisy. She has had no recurrent symptoms. Currently the patient plans to follow-up with her chain person and is scheduled to undergo a stress test. Jacob Mercado MD [facility] Evaluation note* Encounter Date Diagnosis Assessment Notes [...] May,Fusion of lumbar spine (ICD-10 - M43.26) [facility] Other 01-05-2023 Evaluation note* Encounter Date Diagnosis Assessment Notes Treatment Notes Treatment Clinical Notes May, Primary hypertension (ICD-10 - I 10) May,Spondylolisthesis, lumbar region (ICD-10 - M43.16) [facility] Other 12-13-2022 Evaluation note* Encounter Date Diagnosis Assessment Notes Treatment Notes Treatment Clinical Notes Apr, Spondylolisthesis, lumbar region (ICD-10 - M43.16) She is doing well post operative, denies pain and over all looks good. Wound healed and well approximated, clean dry and intact. Removed 20 lazara. Will continue with physical therpay. Xray ordered and follow up in 4 weeks [facility] Other 11-30-2022 Progress note Author Vivi Biggs [facility] April 01, 2022 8:09amNote Date/TimeNovember 2021 7:37[place]IR[place] [address] Neurosurgery Progress Note Signed Patient: Renuka Owen MR#: [id number] : 1950 Acct:[id number] Age/Sex: 71 / F Adm Date: 2 Loc: 4 Room: 4U0175-9 Type: REG SD Attending Dr: Devin Moreau [...] MD Devin Moreau> 03/31/22 0737 [facility] Work Phone: [phone] Hospital Discharge instructionsAmbulatory Orders* Initiate Home Health [...] not do not use the [facility]one[facility] Work Phone: [phone] Evaluation note* Encounter Date Diagnosis Assessment Notes [...] the patient back in about 6 weeks [facility] Other 08-30-2022 Evaluation note* Encounter Date Diagnosis [...] will see her back in 6 weeks [facility] Other 07-05-2022 Evaluation note* Encounter Date Diagnosis [...] the office in 2 months for reevaluation. [facility] Other 06-09-2022 Progress note Author Devin Moreau [facility] October 09, 2021 7:38amNote Date/TimeJune 2021 7:38am[place] [address] Neurosurgery Progress Note Signed Patient: Renuka Owen MR#: [id number] : 1950 Acct:[id number] Age/Sex: 70 / F Adm Date: 2 Loc: 4N Room: 7Q6125-7 Type : REG SDC Attending Dr: Devin [...] signed by MD Devin Moreau> 10/09/21 0738 [facility] Work Phone: [phone]) [phone] Evaluation note* Encounter Date Diagnosis Assessment Notes [...] She was actually due to see her chain person today and she canceled because of her [...] current pathological fracture (ICD- 10 - M81.0) [facility] Other 02-17-2021 History of Past illness Narrative* Problem Noted DateResolved DateRectal tumor/ocumented as of this encounter (statuses as of 05/08/2022) [facility]02-17-2021 History of Past illness Narrative* ProblemNoted Date Resolved DateRectal tumor/1documented as of this encounter (statuses as of 05/20/2022) [facility]-17-2021 History of Past illness Narrative* ProblemNoted Date Diagnosed DateResolved DateRectal tumor/1documented as of this encounter (statuses as of 06/23/2023) [facility] Author Devin Moreau [facility] April 01, 2022 10:58amNote Date/TimeNov2021 10:57[place] [address] Discharge Summary Signed Patient: Renuka Owen MR#: [id number] : 1950 Acct:[id number] Age/Sex: 71 / F Adm Date: 2 Loc: Room: [address] [place] [address]: Devin Moreau MD Copies to: [...] signed by MD Devin Moreau> 04/01/22 1058 [facility] Work Phone: Evaluation noteNo assessment information available [facility] Work Phone: Evaluation note* Diagnosis Onset Date Resolution Status Lumbar stenosis without neurogenic my ication acute [facility] Work Phone: Evaluation noteNo InformationNort Billeo Other evaluation note* Diagnosis Malignant neoplasm of left breast in female, estrogen receptor negative, unspecified site of breast(HCC) 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 [facility]* Diagnosis Malignant neoplasm of upper-outer quadrant of left breast in female, estrogen receptor negative (HCC)- Primary [facility]* Diagnosis Mitral valve insufficiency, unspecified etiology Essential hypertension Unspecified essential hypertension Edema, unspecified type LBBB (left bundle branch block) Other left bundle branch block documented in this encounter [facility] Work Phone: Evaluation note* Diagnosis Mitral valve insufficiency, unspecified etiology- Primary Essential hypertension Unspecified essential hypertension Overweight with body mass index (BMI) of 29 to 29.9 in adult Edema, unspecified type Left ventricular systolic dysfunction documented in this encounter [facility] Work Phone: Evaluation note* Diagnosis Onset Date Resolution Status GERD (gastroesophageal reflux disease) acuteImpaired mobility and activities of daily livingacuteLeft bundle branch blockacuteLumbar stenosis without neurogenic claudicationacuteNeuropathyacute OsteoporosisacutePostoperative painacuteImpaired mobility and activities of daily livingacuteLeft bundle branch blockacuteLumbar stenosis without neurogenic claudicationacuteNeuropathyacutePostoperative painacute [facility] Work Phone: Evaluation note* Diagnosis Onset Date Resolution Status GERD (gastroesophageal reflux disease) acuteImpaired mobility and activities of daily livingacuteLeft bundle branch blockacuteLumbar stenosis without neurogenic claudicationacuteNeuropathyacute OsteoporosisacutePostoperative painacuteImpaired mobility and activities of daily livingacuteLeft bundle branch blockacuteLumbar stenosis without neurogenic claudicationacuteNeuropathyacutePostoperative painacuteLumbar adjacent segment disease with spondylolisthesisacuteSpondylolisthesis, lumbar regionacuteStatus post lumbar spinal fusionacute [facility] Work Phone: Evaluation note* Diagnosis Malignant neoplasm of upper-outer quadrant of left breast in female, estrogen receptor negative (HCC) (HCC)- Primary 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 [facility]* Diagnosis Mitral valve insufficiency, unspecified etiology Essential hypertension Unspecified essential hypertension Left ventricular systolic dysfunction BMI 29.0-29.9,adult Never smoked tobacco documented in this encounter [facility] Work Phone: Evaluation note* Diagnosis Onset Date Resolution Status Lumbar adjacent segment disease with spo ndylolisthesis acuteSpondylolisthesis, lumbar regionacuteStatus post lumbar spinal fusionacute Inflammation of right sacroiliac jointacuteLumbar adjacent segment disease with spondylolisthesisacuteSpondylolisthesis, lumbar regionacuteStatus post lumbar spinal fusionacute [facility] Work Phone: Evaluation note* Diagnosis Onset Date Resolution Status Lumbar adjacent segment disease with spo ndylolisthesis acuteSpondylolisthesis, lumbar regionacuteStatus post lumbar spinal fusionacute Inflammation of right sacroiliac jointacuteLumbar adjacent segment disease with spondylolisthesisacuteSpondylolisthesis, lumbar regionacuteStatus post lumbar spinal fusionacuteChronic painacuteOther low back painacuteSacroiliitis, not elsewhere classifiedacute [facility] Work Phone: Evaluation note* Diagnosis Onset Date Resolution Status Inflammation of right sacroiliac joint acuteLumbar adjacent segment disease with spondylolisthesisacute Spondylolisthesis, lumbar regionacuteStatus post lumbar spinal fusionacute Chronic painacuteOther low back painacuteSacroiliitis, not elsewhere classified acuteChemotherapy-induced peripheral neuropathyacuteChronic venous insufficiency of lower extremityacuteLumbar spondylosisacuteNocturnal leg crampsacuteChronic painacuteOther low back painacuteSacroiliitis, not elsewhere classifiedacute [facility] Work Phone: Evaluation note* Diagnosis Onset Date Resolution Status Chronic pain acuteOther low back painacuteSacroiliitis, not elsewhere classifiedacute Chemotherapy-induced peripheral neuropathyacuteChronic venous insufficiency of lower extremityacuteLumbar spondylosisacuteNocturnal leg crampsacuteChronic pain acuteOther low back painacuteSacroiliitis, not elsewhere classifiedacuteLumbar spondylosisacuteStatus post lumbar spinal fusionacute [facility] Work Phone: Evaluation note* Diagnosis Onset Date Resolution Status Chronic pain acuteOther low back painacuteSacroiliitis, not elsewhere classifiedacute Chemotherapy-induced peripheral neuropathyacuteChronic venous insufficiency of lower extremityacuteLumbar spondylosisacuteNocturnal leg crampsacuteChronic pain acuteOther low back painacuteSacroiliitis, not elsewhere classifiedacuteLumbar spondylosisacuteStatus post lumbar spinal fusionacuteSinusitisacute [facility] Work Phone: Evaluation note* Diagnosis Onset Date Resolution Status Chemotherapy-induced peripheral neuropat hy acuteChronic venous insufficiency of lower extremityacuteLumbar spondylosisacute Nocturnal leg crampsacuteChronic painacuteOther low back painacuteSacroiliitis, not elsewhere classifiedacuteLumbar spondylosisacuteStatus post lumbar spinal fusionacuteSinusitisacuteChronic painacuteOther low back painacuteSacroiliitis, not elsewhere classifiedacute [facility] Work Phone: Evaluation note* Diagnosis Onset Date Resolution Status Chemotherapy-induced peripheral neuropat hy acuteChronic venous insufficiency of lower extremityacuteLumbar spondylosisacute Nocturnal leg crampsacuteChronic painacuteOther low back painacuteSacroiliitis, not elsewhere classifiedacuteLumbar spondylosisacuteStatus post lumbar spinal fusionacuteSinusitisacuteChronic painacuteOther low back painacuteSacroiliitis, not elsewhere classifiedacuteDegenerative arthritis of left footacuteLeft foot painacute [facility] Work Phone: Evaluation note* Diagnosis Onset Date Resolution Status Chronic pain acuteOther low back painacuteSacroiliitis, not elsewhere classifiedacuteLumbar spondylosisacuteStatus post lumbar spinal fusionacuteSinusitisacuteChronic pain acuteOther low back painacuteSacroiliitis, not elsewhere classifiedacute Degenerative arthritis of left footacuteLeft foot painacute [facility] Work Phone: Evaluation note* Diagnosis Onset Date Resolution Status Lumbar spondylosis acuteStatus post lumbar spinal fusionacuteSinusitisacuteChronic painacuteOther low back painacuteSacroiliitis, not elsewhere classifiedacuteDegenerative arthritis of left footacuteLeft foot painacuteChronic painacuteOther low back painacuteSacroiliitis, not elsewhere classifiedacute [facility] Work Phone: Evaluation note* Diagnosis Onset Date Resolution Status Chronic pain acuteOther low back painacuteSacroiliitis, not elsewhere classifiedacute Degenerative arthritis of left footacuteLeft foot painacuteChronic painacute Other low back painacuteSacroiliitis, not elsewhere classifiedacuteHistory of lumbar fusionacutePain of right sacroiliac jointacute [facility] Work Phone: Evaluation note* Diagnosis Onset Date Resolution Status Degenerative arthritis of left foot acuteLeft foot painacuteChronic painacuteOther low back painacuteSacroiliitis, not elsewhere classifiedacuteHistory of lumbar fusionacutePain of right sacroiliac jointacuteChemotherapy-induced peripheral neuropathyacuteChronic venous insufficiency of lower extremityacuteLumbar spondylosisacuteNocturnal leg crampsacute [facility] Work Phone: Evaluation note* Diagnosis Onset Date Resolution Status Degenerative arthritis of left foot acuteLeft foot painacuteChronic painacuteOther low back painacuteSacroiliitis, not elsewhere classifiedacuteHistory of lumbar fusionacutePain of right sacroiliac jointacuteAllergic rhinitisacuteChemotherapy-induced peripheral neuropathyacuteNasal polyp, posterioracuteTinnitus of both earsacute [facility] Work Phone: Evaluation note* Diagnosis Chronic sinusitis, unspecified location- Primary documented in [facility] encounter [facility]* Diagnosis Chronic frontal sinusitis- Primary documented in this encounter [facility]* Diagnosis Mitral valve insufficiency, unspecified etiology documented in this encounter [facility] Work Phone: Evaluation note* Diagnosis Mitral valve insufficiency, unspecified etiology- Primary Left ventricular systolic dysfunction Essential hypertension Unspecified essential hypertension LBBB (left bundle branch block) Other left bundle branch block BMI 28.0-28.9,adult Stage 3a chronic kidney disease (Multi) documented in this encounter [facility] Work Phone: Evaluation note* Diagnosis Dermatophytosis of nail- Primary Dystrophic nail Other specified disease of nail Pain in both feet documented in this encounter [facility] HealthcareEvaluation note* Diagnosis Primary open angle glaucoma (POAG) of both eyes, mild stage (CMS/HCC)- Primary PCO (posterior capsular opacification), bilateral Unspecified after-cataract Keratoconjunctivitis sicca of both eyes not specified as Sjogren's documented in this encounter [facility] HealthcareEvaluation note* Diagnosis Preop examination- Primary [...] negative (HCC)- Primary [facility] Diagnosis Dermatophytosis of nail- Primary Dystrophic nail Other specified disease of nail Pain around toenail, right foot Pain around toenail, left foot documented in this encounter [facility] HealthcareEvaluation note* Diagnosis Osteoarthritis of midtarsal joint of left foot- Primary Capsulitis of left foot Pain in joint of left foot Pain and swelling of toe of left foot Difficulty walking Difficulty in walking documented in this encounter [facility] HealthcareEvaluation note* Diagnosis Bilateral carpal tunnel syndrome- Primary Carpal tunnel syndrome Idiopathic progressive neuropathy documented in this encounter [facility] HealthcareEvaluation note* Diagnosis Mitral valve insufficiency, unspecified etiology- Primary Left ventricular systolic dysfunction Essential hypertension Unspecified essential hypertension LBBB (left bundle branch block) Other left bundle branch block BMI 28.0-28.9,adult Never smoked tobacco Stage 3a chronic kidney disease (Multi) documented in this encounter [facility] Work Phone: Evaluation note* Diagnosis Acute pain of right shoulder- Primary Rotator cuff arthropathy of right shoulder Subacromial impingement of right shoulder documented in this encounter [facility] HealthcareEvaluation note* Diagnosis Mitral valve insufficiency, unspecified etiology Left ventricular systolic dysfunction documented in this encounter [facility] Work Phone: Evaluation note* Diagnosis Primary open angle glaucoma (POAG) of both eyes, mild stage- Primary PCO (posterior capsular opacification), bilateral Unspecified after-cataract Keratoconjunctivitis sicca of both eyes not specified as Sjogren's documented in this encounter [facility] HealthcareEvaluation note* Diagnosis Severe mitral regurgitation- Primary documented in this encounter [facility] Work Phone: History general Narrative - Reported* Type Description Date Medical History Breast Cancer Surgical HistoryhysterectomySurgical HistorycholecystectomySurgical Historylower backSurgical Historybilateral knee replacementSurgical Historyleft rotator cuff repairSurgical Historyleft mastectomySurgical Historybreast reconstruction Surgical Historybenign presacral mass phrilhv31/2021Hospitalization HistorySee Dormzy Other History general Narrative - Reported* Type Description Date Medical History Breast Cancer Surgical HistoryhysterectomySurgical HistorycholecystectomySurgical Historylower backSurgical Historybilateral knee replacementSurgical Historyleft rotator cuff repairSurgical Historyleft mastectomySurgical Historybreast reconstruction Surgical Historybenign presacral mass bxnoegr08/[address]21[address] Dr[address] Moreau04/01/2022Hospitalization HistorySee Dormzy Other History general Narrative - Reported* Type [...] mastectomySurgical Historybreast reconstruction Surgical Historybenign presacral mass ylpprox68/[address]21[address] Dr[address] Moreau04/01/2022Hospitalization HistorySee Dormzy Other History general Narrative - Reported* Type [...] mastectomySurgical Historybreast reconstruction Surgical Historybenign presacral mass ejjpnjt41/[address] Moreau04/01/2022urgical HistoryColonoscopy01/2018Hospitalization HistorySee Dormzy Other History general Narrative - Reported* Type [...] mastectomySurgical Historybreast reconstruction Surgical Historybenign presacral mass cfycqwx94/[address] Moreau04/01/2022urgical HistoryColonoscopy01/2018Hospitalization HistorySee Above Attendify Other History general Narrative - Reported* Type [...] Historyleft mastectomySurgical Historybreast reconstructionSurgical Historybenign presacral mass ufterkc02/[address] Moreau04/01/2022urgical History Colonoscopy01/2018Hospitalization HistorySee Above Attendify Other History general Narrative - Reported* Type [...] Historyleft mastectomySurgical Historybreast reconstructionSurgical Historybenign presacral mass tadhhil60/[address] Moreau04/01/2022urgical History Colonoscopy01/2018Surgical UikvxciSLCI37/2023Hospitalization HistorySee Above Attendify Other Hospital Discharge instructionsAmbulatory Orders* Referral to Pain Management Location: None Selected [facility] Work Phone: Progress note Author Devin Moreau [facility] April 01, 2022 10:53amNote Date/TimeNovember 2021 10:[address] [address] Neurosurgery Progress Note Signed Patient: Renuka Owen MR#: [id number] : 1950 Acct:[id number] Age/Sex: 71 / F Adm Date: 2 Loc: Room: [address] [place] [address] Type: REG SDC Attending Dr: Devin Moreau [...] signed by MD Devin Moreau> 04/01/22 1053 [facility] Work Phone: Reason for referral (narrative)* Diagnostic Procedure Only (Routine) - Pending ReviewSpecialtyDiagnoses / ProceduresReferred By ContactReferred To ContactBR IMAGING Diagnoses Malignant neoplasm of upper-outer quadrant of left breast in female, estrogen receptor negative (HCC) Procedures [facility] RT DIAGNOSTIC MAMMOGRAPHY COMPUTER-AIDED DETCJ Jacob Collado MD [address] [place] [address] [place] [address] Br Imaging [address] [place] [address] Referral IDStatusReasonStart DateExpiration DateVisits RequestedVisits [id number] Review Auto-Generated Referral / [facility] for referral (narrative)* Consultation (Routine) - AuthorizedSpecialtyDiagnoses / ProceduresReferred By ContactReferred To ContactCardiology Diagnoses Mitral valve insufficiency, unspecified etiology Essential hypertension Procedures Follow Up In Cardiology Bryce Hendrickson MD [address] [facility] 2, Rob [address] [place] [address] Bryce Hendrickson MD [address] [place] [address] 2, [address] [address] Referral IDStatusReasonStart DateExpiration DateVisits RequestedVisits [id number]/31/202310/ [facility] Work Phone: [facility])* Consultation (Routine) - AuthorizedSpecialtyDiagnoses / ProceduresReferred By Contact Referred To ContactCardiology Diagnoses Mitral valve insufficiency, unspecified etiology Procedures Follow Up In Cardiology Bryce Hendrickson MD [address] [facility] 2, Rob [address] [place] [address] Bryce Hendrickson MD [address] [place] [address] 2, [address] [address] Referral IDStatusReasonStart DateExpiration DateVisits RequestedVisits [id number]/16/202311/ [facility] Work Phone: Reason for referral (narrative)* Diagnostic Procedure Only (Routine) - Pending ReviewSpecialtyDiagnoses / ProceduresReferred By ContactReferred To ContactBR IMAGING Diagnoses Malignant neoplasm of upper-outer quadrant of left breast in female, estrogen receptor negative (HCC) (HCC) Procedures [facility] RIGHT DIAGNOSTIC MAMMOGRAPHY COMPUTER-AIDED DETCJ [facility] Jacob Mercado MD [address] [place] [address] [place] [address] Br Imaging [address] [place] [address] Referral IDStatusReasonStart DateExpiration DateVisits RequestedVisits [id number] Review Auto-Generated Referral / [facility] ([facility]arrative)No reason for referral information availableK[facility] Work Phone: Reason for visit NarrativePain management referral updateNort Billeo Other Reason for visit Narrative* Consultation (Routine) - ClosedSpecialtyDiagnoses / ProceduresReferred By ContactReferred To Contact Neurology Diagnoses Headache, unspecified Spondylosis without myelopathy or radiculopathy, cervical region Procedures [facility] UNLISTED EVALUATION AND MANAGEMENT SERVICE [facility] Physician [address] [place] [address] Phone: tel: fax: Bran Linda MD [address] [place] [address] Phone: tel: fax: Referral IDStatusReasonStart DateExpiration DateVisits RequestedVisits [id number]/12/20259/ [facility] Narrative* CV Imaging (Routine) - Authorized SpecialtyDiagnoses / ProceduresReferred By ContactReferred To Contact Cardiology Diagnoses Mitral valve insufficiency, unspecified etiology Left ventricular systolic dysfunction Procedures Transthoracic Echo Limited NH ECHO TRANSTHORC R-T 2D W/WO M-MODE REC F-UP/LMTD NH DOPPLER ECHO COLOR FLOW VELOCITY MAPPING NH DOPPLER ECHO PULSE WAVE W/SPECTRAL F-UP/LMTD STD Bryce Hendrickson MD 703 [facility] 2, [address] [address] Phone: tel: fax: Referral IDStatusReasonStart DateExpiration DateVisits RequestedVisits [id number] Perform Procedure [facility] Work Phone: Summary Purpose Family History No [...] 2024 9:54am Hospital Course Note HNO ID: [id number] Author: Keith winn ([facility]) [facility] Service: Colorectal Author Type: Nurse Practitioner Type: [...] (more content not included)... Note HNO ID: [id number] Author: Yissel valencia (Bernadette) Slivinskijuan Service: Anesthesiology Author Type: Nurse Table Games Floor Supervisor Type: Anesthesia Procedure Notes Filed: 06/19/2020 2:41 PM Note Text: ANESTHESIOLOGY PROCEDURE NOTE Airway General Information Procedure Start Time/Medication Administration: 06/19/2020 2:25 PM Patient location during procedure: OR Timeout Performed Pre-procedure: timeout performed Patient identity confirmed: arm band and patient Staffing Anesthesiologist: Ricardo Arvizu COGNOS: Robyn (Burlapper) Slivboby Performed by: BERNADETTE Indications and Patient [...] (more content not included)... Note HNO ID: [id number] Author: Karuna He (Fel) Service: Colorectal Author Type: Fellow Type: Brief Op Note Filed: 06/19/2020 4:17 PM Note Text: BRIEF OPERATIVE NOTE - COLORECTAL SURGERY Log ID: [id number] Surgery/Procedure Date: 06/19/2020 Incision/Procedure Start Time: 2:46 PM Incision Close/Procedure End Time: 4:00 PM Surgeon(s) and Radiology Supervisor(s): Surgeon(s) and Role: * Saman Lorenzo - [...] not included)... Procedure Findings Note HNO ID: [id number] Author: Yissel valencia (Bernadette) Celioivurszula Service: Anesthesiology Author Type: Nurse Table Games Floor Supervisor Type: Anesthesia Procedure Notes Filed: 06/19/2020 2:41 PM Note Text: ANESTHESIOLOGY PROCEDURE NOTE Airway General Information Procedure Start Time/Medication Administration: 06/19/2020 2:25 PM Patient location during procedure: OR Timeout Performed Pre-procedure: timeout performed Patient identity confirmed: arm band and patient Staffing Anesthesiologist: Ricardo Arvizu COGNOS: oRbyn Reddy) Slivurszula Performed by: COGNOS Indications and Patient Condition Preoxygenated: yes Patient [...] (more content not included)... Note HNO ID: [id number] Author: Karuna He (Fel) Service: Colorectal Author Type: Fellow Type: Brief Op Note Filed: 06/19/2020 4:17 PM Note Text: BRIEF OPERATIVE NOTE - COLORECTAL SURGERY Log ID: [id number] Surgery/Procedure Date: 06/19/2020 Incision/Procedure Start Time: 2:46 PM Incision Close/Procedure End Time: 4:00 PM Surgeon(s) and Radiology Supervisor(s): Surgeon(s) and Role: * Saman Lorenzo - [...] L4-5 revision 2 Week Po Plif W/X-Ray [facility] Discharge 1 Mo Po [...] Complaint 2 Week Po Plif W/X-R ay [facility] Discharge 1 Mo Po [...] Amb Documentation EST PT CONSULT DR MOREAU RECHJAKE LUMBAR PAIN LUMBAR PAIN leg cramps F/U [...] Amb Documentation EST PT CONSULT DR MOREAU RECHJAKE LUMBAR PAIN LUMBAR PAIN leg cramps F/U [...] vision, balance, and tapping in ears Jan lalito2023 10:47am CC Adult Risk Stratification January 2:07pm headaches, neck, back of neck pain Decem 2023 2:12pm Syncope April 07, 2024 4 :45pm Syncope April 08, 2024 1 :15pm Amb Documentation April 10, 2024 9 :36am CC Adult Risk Stratification April 112023 4:16pm [place] f[place] [facility] [place] 12, 2024 2:39pm Weakness/Walking May 12, [...] gait when walking May 12, 2024 1:44pm Oatfz-wm-tdycunu kidney injury May 052024 1:43pm Anemia June 01, 2024 1 :43pm Chemotherapy-induced peripheral neuropat hy June 01, 2024 1:43pm Chronic HFrEF (heart failure with reduced ejection fraction) June 01, 2024 1:43pm Chronic kidney disease June 01 1:43pm Contusion June 01, 2024 1 :43pm Generalized weakness Miladys 30th, 2025 1:43pm Hypertension June 01, 2024 1 :43pm [...] :44pm Fall June 01, 2024 1 :43pm Halfway Visit June 01, 2024 1 1:59pm Fall [...] gait when walking May 12, 2024 1:44pm Kmupp-ep-gziacvc kidney injury May 052024 1:43pm Anemia June [...] History of total left knee replacement [facility] 2024 9:30am Reason for Visit Admit Date [...] gait when walking May 12, 2024 1:44pm Jvfai-pk-qdquzok kidney injury May 052024 1:43pm Anemia June [...] :44pm Fall June 01, 2024 1 :43pm Halfway Visit June 01, 2024 1 1:59pm Fall June 03, 2024 8 :37am Fall June 05, 2024 9 :30am Amb Documentation June 27, 2024 8:38am Z96.652 - Presence of left artificial kn ee joint June 29, 2024 8:09am NEW LTKA PAIN AFTER FALL June 29, 2024 9:30am [facility] f/u July 03, 2024 1:18 pm Reason [...] gait when walking May 12, 2024 1:44pm Doffz-zs-bbkfnrz kidney injury May 052024 1:43pm Anemia June [...] :44pm Fall June 01, 2024 1 :43pm Halfway Visit June 01, 2024 1 1:59pm Fall June 03, 2024 8 :37am Fall June 05, 2024 9 :30am Halfway Visit June 22, 2024 11:59pm Amb Documentation June 27, 2024 8:38am Z96.652 - Presence of left artificial kn ee joint June 29, 2024 8:09am NEW LTKA PAIN AFTER FALL June 29, 2024 9:30am [facility] f/u July 03, 2024 1:18 pm Reason [...] gait when walking June 01, 2024 1:43pm Aaskx-gx-bihlvaq kidney injury May 052024 1:43pm Hypokalemia June [...] :44pm Fall June 01, 2024 1 :43pm Halfway Visit June 01, 2024 1 1:59pm Fall June 03, 2024 8 :37am Fall June 05, 2024 9 :30am Halfway Visit June 22, 2024 11:59pm Amb Documentation June 27, 2024 8:38am Z96.652 - Presence of left artificial kn ee joint June 29, 2024 8:09am NEW LTKA PAIN AFTER FALL June 29, 2024 9:30am [facility] f/u July 03, 2024 1:18 pm 3 [...] gait when walking June 01, 2024 1:43pm Poupf-ss-zmjyrak kidney injury May 052024 1:43pm Hypokalemia June [...] h 2024 11:07am Chief Complaint Admit Date Halfway Visit June 22, 2024 11:59pm Amb Documentation June 27, 2024 8:38am Z96.652 - Presence of left artificial kn ee joint June 29, 2024 8:09am NEW LTKA PAIN AFTER FALL June 29, 2024 9:30am [facility] f/u July 03, 2024 1:18 pm 3 [...] 10:26a m Chief Complaint Admit Date [facility] f/u July 03, 2024 1:18 pm 3 [...] 10:26am Opiate analgesic use agreement exists Augie y 2024 10:26am Left knee pain September [...] Encephalopathy s/t Sepsis November 28, 2024 12:00am Halfway Visit December 07, 2024 11: 59pm Halfway Visit December 21, 2024 11 :59pm Amb [...] Encephalopathy s/t Sepsis November 28, 2024 12:00am Halfway Visit December 07, 2024 11: 59pm Halfway Visit December 21, 2024 11 :59pm Amb Documentation January 09, 2025 1:50pm N17.9 I50.20 January 11, 2025 3:24pm Hospital F/U January 11, 2025 4:07pm [facility] follow up January 15, 2025 11:36am [...] insufficiency, unspecified etiology Procedures Transthoracic Echo Complete NH ECHO TTHRC R-T 2D W/WOM-MODE COMPL SPEC&COLR D Bryce Hendrickson MD [address] [place] [address] 2, [place] [id number] Referral IDStatusReasonNodaway DateExpiration DateVisits RequestedVisits [id number] Review Perform Procedure [id number] / ProceduresReferred By ContactReferred To ContactCardiology Diagnoses Mitral valve insufficiency, unspecified etiology Procedures Follow Up In Cardiology Bryce Hendrickson MD [address] [place] [address] 2, [address] [address] Bryce Hendrickson MD [address] [place] [address] 2, [place] [id number] Referral [facility]Status[facility] DateExpiration DateVisits RequestedVisits [id number]/14/20243/14/202511 Reason evaluate and treat Diagnosis 1 Lumbar stenosis with neurogenic claudication (M48.062) Referral Organization [facility] [place] [facility] Referring Provider First Name Vivi Referring Provider Last Name Kalyan Referring Provider Specialty Nurse Pract junito Referred Organization [facility] Referred Address [address], [place],[address] Referred Provider Specialty Physical The rapist Referral Priority Routine Reason *Waiting for appt Evaluate and Treat Intra-articular Diagnostic Therapeutic L Hip Injection Diagnosis 1 Arthropathy of left hip (M16.12) Referral Organization [facility] Referring Provider First Name Devin Referring Provider Last Name Lizzeth Referring Provider Specialty Neurologica l Surgery Referred Organization [facility] Pain Managemen t Bone [place] Referred Provider Artie Blackburn Referred Address [address] [place] [place], [place],[address] Referred Provider Specialty Pain Medicin e Referral Priority Routine General Notes [facility] 08:24:55 AM >Received today and sent P2P Reason *FU 01/09 Evaluate and Treat Left Hip Pain Diagnosis 1 Arthropathy of left hip (M16.12) Referral Organization [facility] Referring Provider First Name Devin Referring Provider Last Name Lizzeth Referring Provider Specialty Neurologica l Surgery Referred Organization [facility] Referred Provider Eran Hankins Referred Address ,[place], [place],[address] Referred Provider Specialty Orthopedic S urgery Referral Priority Routine General Notes [facility] 022 12:36:21 PM >Received and sent referral [...] problems noted below but recently was at [facility] for chest pain and had ruled out [...] chest pain requiring an ER visit to [facility]. Assessment was negative in the ER. Nuclear [...] section and content) DATE CREATED AUTHOR 12/22/2017 [facility] DATE CREATED AUTHOR AUTHOR'S ORGANIZ ATION 04/24/2020 [facility] DATE CREATED AUTHOR AUTHOR'S ORGANIZ ATION 06/27/2020 [facility] DATE CREATED AUTHOR AUTHOR'S ORGANIZ ATION 05/12/2022 [facility] DATE CREATED AUTHOR AUTHOR'S ORGANIZ ATION 05/14/2022 [facility] DATE CREATED AUTHOR AUTHOR'S ORGANIZ ATION 09/04/2022 [facility] DATE CREATED AUTHOR AUTHOR'S ORGANIZ ATION 02/01/2023 [facility] DATE CREATED AUTHOR AUTHOR'S ORGANIZ ATION 05/02/2023 [facility] DATE CREATED AUTHOR AUTHOR'S ORGANIZ ATION 11/20/2024 [facility] DATE CREATED AUTHOR AUTHOR'S ORGANIZ ATION 01/25/2025 [facility] DATE CREATED AUTHOR AUTHOR'S ORGANIZ ATION 02/23/2025 [facility] DATE CREATED AUTHOR AUTHOR'S ORGANIZ ATION 03/06/2025 [facility] DATE CREATED AUTHOR AUTHOR'S ORGANIZ ATION 03/11/2025 [facility] DATE CREATED AUTHOR AUTHOR'S ORGANIZ ATION 03/14/2025 [facility] Off Teams (unrecognized sec tion and content) Team [...] Active Start: November 02, 2024 Regina Garcia , DOEmergency ProviderActiveStart: November 02, 2024 Juan Jose Fine ProviderActiveStart: November 02, 2024 Josh Sosa MDOther ProviderActiveStart: November 02, 2024 Carly Cuevas APRN ACNP-BCOther ProviderActiveStart: November 02, 2024 Josue Cosme MDOther ProviderActiveStart: November 02, 2024 Lloyd Liu MDOther ProviderActiveStart: November 02, 2024 Panda Dietrich MDOther ProviderActiveStart: November 02, 2024 Charlie Garcia DOOther ProviderActiveStart: November 02, 2024 Karyn Mccallum DOOther ProviderActiveStart: November 02, 2024 Cherise Lewis MDOther ProviderActiveStart: November 02, 2024 Casimiro Booth MDOther ProviderActiveStart: November 02, 2024 Sorin Timmons MDOther ProviderActiveStart: November 02, 2024 Tino Gaffney MDOther ProviderActiveStart: November 02, 2024 Danyelle Mathews MDOther ProviderActiveStart: November 02, 2024 Jarrett Costaher ProviderActiveStart: November 02, 2024 Sherin Arellano MDOther ProviderActiveStart: November 02, 2024 Hugn Ryan MDOther ProviderActiveStart: November 02, 2024 Yasmine Shawending ProviderActiveStart: November 02, 2024 Sin Martinez MDOther ProviderActiveStart: November 02, 2024 Zak Blanca , MDAttending ProviderActiveStart: November 02, 2024 End: November 14, 2024Zenobia Carrasco MDOther ProviderActiveStart: November 02, 2024 End: November 14, 2024Saman Marino MDOther ProviderActiveStart: November 02, 2024 End: November 14, 2024Marley Mendieta , APRNOther ProviderActiveStart: November 02, 2024 End: November 14pritesh Garza Jr, DOOther ProviderActiveStart: November 02, 2024 End: November 14carolin Louis MDOther ProviderActiveStart: November 02, 2024 End: November 14, 2024 Team Status: Active Member Role Status Dates Sylvester Jacob DO Primary Care Provider Active Start: November 09, 2024 Regina Garcia DOEmergency ProviderActiveStart: November 09, 2024 Josh Sosa MDAdmit ProviderActiveStart: November 09, 2024 Carly Cuevas , CHIEF MAINTENANCE SUPERVISOR ACNP-BCOther ProviderActiveStart: November 09, 2024 Josue Cosme MDOther ProviderActiveStart: November 09, 2024 Lloyd Liu MDOther ProviderActiveStart: November 09, 2024 Panda Dietrich MDOther ProviderActiveStart: November 09, 2024 Charlie Garcia DOOther ProviderActiveStart: November 09, 2024 Karyn Mccallum DOOther ProviderActiveStart: November 09, 2024 Cherise [...] ProviderActiveStart: November 09, 2024 Priti Mandujano , POWER STATION OPERATOR-BCOther ProviderActiveStart: November 09, 2024 Iraj Juan , MDAttending ProviderActiveStart: November 09, 2024 Team Status: Active Member Role Status Dates Sylvester Jacob , Primary Care Provider Active Start: November 14, 2024 Jared Louis MDAdmit ProviderActiveStart: November 14, 2024 Jared Louis MDOther ProviderActiveStart: November 14, 2024 Regina Leblanc , RNOther ProviderActiveStart: November 14, 2024 Theresa Velez , [...] MDOther ProviderActiveStart: November 14, 2024 Freddy Arnold DOOther ProviderActiveStart: November 14, 2024 Guero Mott [...] ProviderActiveStart: November 14, 2024 Julito Malhotra , COMMISSIONING SPECIALIST-COther ProviderActiveStart: November 14, 2024 Leonardo Sanchez , [...] Active Member Role Status Dates Sylvester Jacob , Primary Care Provider Active Start: November 21, 2024 Rosy Bryanit ProviderActiveStart: November 21, 2024 Jared Louis MDAttending [...] MDOther ProviderActiveStart: November 21, 2024 Freddy Arnold DOOther ProviderActiveStart: November 21, 2024 Guero Mott [...] ProviderActiveStart: November 21, 2024 Julito Malhotra , COMMISSIONING SPECIALIST-COther ProviderActiveStart: November 21, 2024 Leonardo Sanchez , [...] , APRNOther ProviderActiveStart: November 21, 2024 Zechariah Mcacrthy , DOOther ProviderActiveStart: November 21, 2024 Ambika Kevin MDOther ProviderActiveStart: November 21, 2024 Radhika Bueno , APRNOther ProviderActiveStart: November 21, 2024 Tammi Giordano , APRNOther ProviderActiveStart: November 21, 2024 Kaveh Koehler MDOther ProviderActiveStart: November 21, 2024 Max Haji MDOther ProviderActiveStart: November 21, 2024 Nathaniel Lake , DOOther ProviderActiveStart: November 21, 2024 Elizabeth Reece , DOOther ProviderActiveStart: November 21, 2024 Caesar oCnway MDOther ProviderActiveStart: November 21, 2024 Deborah Avina [...] Martinez , APRNOther ProviderActiveStart: November 21, 2024 Auar Alford RNOther ProviderActiveStart: November 21, 2024 Team [...] JAYAOther ProviderActiveStart: November 28, 2024 Areli Marino , JAYAOther ProviderActiveStart: November 28, 2024 Mary Marc MDOther ProviderActiveStart: November 28, 2024 Cb Adam , DOOther ProviderActiveStart: November 28, 2024 Dylan Pozo MDOther ProviderActiveStart: November 28, 2024 Freddy Arnold , DOOther ProviderActiveStart: November 28, 2024 Guero Mott MDOther ProviderActiveStart: November 28, 2024 Yary Johnson MDOther ProviderActiveStart: November 28, 2024 Isaiah Bailey , DOOther ProviderActiveStart: November 28, 2024 Servando Kelly MDOther ProviderActiveStart: November 28, 2024 Roxie Love , APRNOther ProviderActiveStart: November 28, 2024 Jasmine Diaz MDOther ProviderActiveStart: November 28, 2024 Sterling Coats MDOther ProviderActiveStart: November 28, 2024 Israel Lu MDOther ProviderActiveStart: November 28, 2024 Gage Pena MDOther ProviderActiveStart: November 28, 2024 Isaiah Mejia , DOOther ProviderActiveStart: November 28, 2024 Wallace Meeks MDOther ProviderActiveStart: November 28, 2024 Yonas Hoyos MDOther ProviderActiveStart: November 28, 2024 Julito Malhotra , COMMISSIONING SPECIALIST-COther ProviderActiveStart: November 28, 2024 Leonardo Sanchez , APRNOther ProviderActiveStart: November 28, 2024 Zak Blanca MDOther ProviderActiveStart: November 28, 2024 Joaquin Pal MDOther ProviderActiveStart: November 28, 2024 Maynor Conway MDOther ProviderActiveStart: November 28, 2024 Dale Marcelo MDOther ProviderActiveStart: November 28, 2024 Meño Saldana MDOther ProviderActiveStart: November 28, 2024 Tatiana Sibley DOOther ProviderActiveStart: November 28, 2024 Byron Dave , DOOther ProviderActiveStart: November 28, 2024 Xi Sosa , APRNOther ProviderActiveStart: November 28, 2024 Zechariah J Mccarthy , DOOther ProviderActiveStart: November 28, 2024 Ambika Kevin MDOther ProviderActiveStart: November 28, 2024 Radhika Bueno , APRNOther ProviderActiveStart: November 28, 2024 Tammi Giordano , APRNOther ProviderActiveStart: November 28, 2024 Kaveh Koehler MDOther ProviderActiveStart: November 28, 2024 Max Haji MDOther ProviderActiveStart: November 28, 2024 Nathaniel Lake , DOOther ProviderActiveStart: November 28, 2024 Hortensiagaurav Chevy , DOOther ProviderActiveStart: November 28, 2024 Caesar Conway MDOther ProviderActiveStart: November 28, 2024 Deborah Avina MDOther ProviderActiveStart: November 28, 2024 Belem Mauro , APRNOther ProviderActiveStart: November 28, 2024 Lisette Almaraz MDOther ProviderActiveStart: November 28, 2024 Josh Sosa MDOther ProviderActiveStart: November 28, 2024 Samna Duran MDOther ProviderActiveStart: November 28, 2024 Servando [...] Active Start: December 07, 2024 Sylvester Jacob DOAttending ProviderActiveStart: December 07, 2024 Team Status: Active Member Role Status Dates Sylvester Jacob DO Primary Care Provider Active Start: December 21, 2024 Sylvester Jacob DOAttending ProviderActiveStart: December 21, 2024 Team Status: Active Member Role Status Dates Sylvester Jacob DO Primary Care Provider Active Start: January 09, 2025 Gwen Burk , CMAAttending ProviderActiveStart: January 09, 2025 Team Status: Active Member Role Status Dates Sylvester Ball , DO Primary Care Provider Active Start: January 11, 2025 Malachielder RENETTA Mathewsttending ProviderActiveStart: January 11, 2025 Team Status: Inactive Member Role Status Heidi Jacob DO Primary Care Provider Active Start: January 11, 2025 End: January 11, 2025Danyelle Mathews MDAttending ProviderActiveStart: January 11, 2025 End: January 11, 2025 Team Status: Inactive Member Role Status Heidi Jacob DO Primary Care Provide r, Attending Provider Active Start: July 03, 2024 End: July 03, 2024 Team Status: Inactive Member Role Status Heidi Jacob DO Primary Care Provider Active Start: July 24, 2024 End: July 24, 2024Emory Cole II, RENETTAttending ProviderActiveStart: July 24, 2024 End: July 24, [...] Care Provider Active Start: June 27, 2024 Katie Carlsonending ProviderActiveStart: June 27, 2024 Team Status: Inactive [...] ProviderActiveStart: June 01, 2024 End: June 05, 2024MicMahamed Woodallit ProviderActiveStart: June 01, 2024 End: June 05Yesenia Neal ProviderActiveStart: June 01, 2024 End: June 05, 2024Racarlos Whitfield MDAttending ProviderActiveStart: June 01, 2024 End: June 05, 2024Yesenia Murrieta ProviderActiveStart: June 01, 2024 End: June 05, 2024Yesenia Najera ProviderActiveStart: June 01, 2024 End: June 05, 2024Marley Mendieta , APRNOther ProviderActiveStart: June 01, 2024 [...] Brito Provider, Other ProviderActiveStart: June 03, 2024 Sherin Arellano MDAttending Provider, Other ProviderActiveStart: June 03, 2024 Team Status: Active Member Role Status Dates Sylvester Jacob DO Primary Care Provider Active Start: June 05, 2024 Venkat Llanos ProviderActiveStart: June 05, 2024 Shanelle Brito ProviderActiveStart: June 05, 2024 Yesenia Sanchez ProviderActiveStart: June 05, 2024 Yesenia Murrieta ProviderActiveStart: June 05, 2024 Yesenia Najera ProviderActiveStart: June 05, 2024 Marley Mendieta , APRNOther ProviderActiveStart: June 05, 2024 Humestonquique Garza Jr, DOOther ProviderActiveStart: June 05, 2024 Jared Louis MDAttending [...] Active Start: April 07, 2024 End: April 09matt Jacob , DOPrimary Care ProviderActiveStart: April 07, 2024 End: April 09jeffery Sosa MDAdmit Provider, Attending ProviderActive Start: April 07, 2024 End: April 09, 2024Yesenia Ho ProviderActiveStart: April 07, 2024 End: April 09, 2024 Team Status: Active Member Role Status Dates Romel William PA-C Emergency Provider Active Start: April 08, 2024 Sylvester Jacob DOPrimary Care ProviderActiveStart: April 08, 2024 Josh Sosa MDAdmit Provider, Other ProviderActiveStart: April 08, 2024 Danyelle Mathews MDAttending Provider, Other ProviderActiveStart: April 08, 2024 Team Status: Active Member Role Status Dates Sylvester Jacob DO Primary Care Provider Active Start: April 10, 2024 Gwen Burk , CMAAttending ProviderActiveStart: April 10, 2024 Team [...] Provider Active St art: March 31, 2024 SERGIO Jamarikey Care ProviderActiveStart: March 31, 2024 Team Status: Active Member Role Status Dates Sylvester Jacob DO Primary Care Provider Active Start: June 01, 2024 Regina Garcia , DOJina ProviderActiveStart: June 01, 2024 Isaiah Frings , DOAdmit Provider, Attending ProviderActiveStart: June 01, 2024 Team Status: Inactive Member Role Status Dates Sylvester Jacob DO Primary Care Provider Active Start: August 11, 2023 End: August 10Jorge Jasmine ProviderActiveStart: August 11, 2023 End: August 11, 2023 Team Status: Inactive Member Role Status Dates Sylvester Jacob DO Primary Care Provider Active Start: September 07, 2023 End: September 06omas Jorge Blackburn ProviderActiveStart: September 07, 2023 End: September 07, 2023 Team Status: Active Member Role Status Dates Sylvester Jacob DO Primary Care Provider Active Start: September 07, 2023 Yasmine Painterending Provider, Other ProviderActiveStart: September 07, 2023 Team Status: Inactive Member Role Status Dates Sylvester Jacob DO Primary Care Provide r, Attending Provider Active Start: September 14, 2023 End: September 14, 2023 Team Status: Active Member Role Status Dates Sylvester Jacob DO Primary Care Provide r, Attending Provider Active Start: September 17, 2023 Team Status: Inactive Member Role Status Dates Sylvester Jacbo DO Primary Care Provider Active Start: September 22, 2023 End: September 22, 2023Thomas Yasmine Blackburnending ProviderActiveStart: September 22, 2023 End: September 22, 2023 Team Status: Inactive Member Role Status Dates Sylvester Jacob DO Primary Care Provider Active Start: October 19, 2023 End: October 18Jorge Mcpherson ProviderActiveStart: October 19, 2023 End: October 19, 2023 Team Status: Inactive Member Role Status Dates Sylvester Jacob DO Primary Care Provider Active Start: November 01, 2023 End: November 01, 2023Ana Maria Landeros APRN COMMISSIONING SPECIALIST-CAttennatalia ProviderActiveStart: November 01, 2023 End: November 01, [...] Star t: July 20, 2023 End: July 19satnamhaseeb Jacob SERGIOlashawn Brenda ProviderActiveStart: July 20, 2023 End: July 20, 2023 Team Status: Active Member Role Status Dates Sylvester Jacob DO Primary Care Provider Active Start: July 28, 2023 Aliza Quintero ProviderActiveStart: July 28, 2023 Team Status: Inactive Member Role Status Dates Sylvester Jacob DO Primary Care Provider Active Jorge Frederick ProviderActiveTeam MemberRelationshipSpecialtyStart DateEnd Date Sylvester Jacob, DO [address] [place] [id number] PCP - GeneralInternal Medicine06/04/20Team MemberRelationshipSpecialtyStart Date End Date Sylvester Jacob, DO [address] [place] [address] PCP - GeneralBannernal Medicine06/04/20Team MemberRelationshipSpecialtyStart Date End Date Sylvester Jacob DO [address] [place] [address] PCP - Metxgjf90/23/19 Team Status: Inactive Member Role Status Dates [...] 26, 2023 End: May 26, 2023Vivi Biggs COMMISSIONING SPECIALIST-CAttending ProviderActiveStart: May 26, 2023 End: May 26, 2023 Team Status: Inactive Member Role Status Dates NON STAFF Primary Care Provider Active Start: June 21, 2023 End: June 21, 2023Vivi Biggs NP-CAttending ProviderActiveStart: June 21, 2023 End: June 21, 2023Team MemberRelationshipSpecialtyStart DateEnd Date Sylvester Jacob DO PCP - GeneralInternal Medicine06/04/20Team MemberRelationshipSpecialtyStart Date End Date Sylvester Jacob DO PCP - Pbysgol45/23/19 Team Status: Active Member Role Status Dates [...] Start: November 24, 2023 End: November 24, 2023Thomas Bere , MDAttending ProviderActiveStart: November 24, 2023 End: November 24, 2023 Team Status: Inactive Member Role Status Dates Sylvester Jacob DO Primary Care Provide r, Attending Provider Active Start: December 13, 2023 End: December 13, 2023 Team Status: Inactive Member Role Status Dates Sylvester Jacob DO Primary Care Provider Active Start: December 21, 2023 End: December 20omas Bere MDAttending ProviderActiveStart: December 21, 2023 End: December 21, 2023 Team Status: Active Member Role Status Dates Sylvester Jacob DO Primary Care Provider Active Start: December 21, 2023 Artie RENETTA Blackburnttending Provider, Other ProviderActiveStart: December 21, 2023 Team Status: Inactive Member Role Status Dates Sylvester Jacob DO Primary Care Provider Active Start: January 05, 2024 End: January 04omas Bere , MDAttending ProviderActiveStart: January 05, 2024 End: January 05, 2024Team MemberRelationshipSpecialtyStart DateEnd Date Sylvester Jacob DO PCP [facility] Medicine06/04/20 Team Status: Active Member Role Status Dates Sylvester Jacob DO Primary Care Provider Active Start: February 08, 2024 Devin Moreau MDAttending ProviderActiveStart: February 08, 2024 Team Status: Inactive [...] DateEnd Date Sylvester Jacob MD [address] [place] [id number] PCP - GeneralInternal Medicine09/30/22Team MemberRelationshipSpecialtyStart Date End Date Sylvester Jacob MD [address] [place] [id number] PCP - GeneralInternal Medicine09/30/22Team MemberRelationshipSpecialtyStart Date End Date Sylvester Jacob MD [address] [place] [address] PCP - GeneralInternal Medicine09/30/22Team MemberRelationshipSpecialtyStart Date End Date Sylvester Jacob DO [address] [place] [address] PCP - GeneralInternal Medicine01/05/24Team MemberRelationshipSpecialtyStart Date End Date Sylvester Jacob DO [address] [place] [address] PCP - GeneralInternal Medicine01/05/24Team MemberRelationshipSpecialtyStart Date End Date Sylvester Jacob MD [address] [place] [facility] [address] PCP - GeneralBannernal Medicine09/30/22Team MemberRelationshipSpecialtyStart Date End Date Sylvester Jacob MD [address] [place] [facility] [address] PCP - GeneralBannernal [facility]09/30/22Team MemberRelationshipSpecialtyStart Date End Date Sylvester Jacob MD [address] [place] [facility] [address] PCP - GeneralBannernal [facility]09/30/22 Team Status: Inactive Member Role Status Dates Sylvester Jacob DO Primary Care Provider Active Start: June 01, 2024 End: June 05lexVenkat Meraz ProviderActiveStart: June 01, 2024 End: June 05, 2024Micnuris Mejia DOAdmit ProviderActiveStart: June 01, 2024 End: June 05ward Arellano MDOther ProviderActiveStart: June 01, 2024 End: June 05, 2024Zenobia Carrasco MDOther ProviderActiveStart: June 01, 2024 End: June [...] Start: June 29, 2024 Emory Cole II, [facility] ProviderActiveStart: June 29, 2024 Team MemberRelationshipSpecialtyStart DateEnd Date Sylvester Jacob MD [address] [place] [facility] [place] [address] PCP - GeneralInternal Medicine09/30/22Team MemberRelationshipSpecialtyStart Date End Date Sylvester Jacob DO PCP - GeneralInternal Medicine06/04/20Team MemberRelationshipSpecialtyStart Date End Date Sylvetser Jacob DO PCP - GeneralInternal Medicine06/04/20Team MemberRelationshipSpecialtyStart Date End Date Sylvester Jacob DO [address] [place] [facility] [place] [address] PCP - GeneralInternal Medicine09/30/22Team MemberRelationshipSpecialtyStart Date End Date Sylvester Jacob DO [address] [place] [facility] [address] PCP - GeneralInternal Medicine09/30/22Team MemberRelationshipSpecialtyStart Date End Date Sylvester Jacob DO [address] [place] [facility] [address] PCP - GeneralInternal Medicine09/30/22Team MemberRelationshipSpecialtyStart Date End Date Sylvester Jacob DO [address] [place] [facility] [address] PCP - GeneralInternal Medicine09/30/22Team MemberRelationshipSpecialtyStart Date End Date Sylvester Jacob DO [address] [place] [address] PCP - GeneralInternal Medicine09/30/22Team MemberRelationshipSpecialtyStart Date End Date Sylvester Jacob DO [address] [place] [address] PCP - GeneralInternal Medicine09/30/22 Team Status: Inactive [...] 2024 Venkat Llanos ProviderActiveStart: November 02, 2024 Josh Sosa MDAdmit ProviderActiveStart: November 02, 2024 Josh Sosa MDAttending ProviderActiveStart: November 02, 2024 Team Status: Inactive Member Role Status Dates Sylvester Jacob DO Primary Care Provider Active Start: January 15, 2025 End: January 15enhaseeb Jacob DOAttending ProviderActiveStart: January 15, 2025 End: January 15, 2025Team MemberRelationshipSpecialtyStart DateEnd Date Sylvester Jacob DO [address] [place] [address] PCP - GeneralInternal Medicine01/05/24Team MemberRelationshipSpecialtyStart Date End Date Sylvester Jacob, DO [address] [place] [address] PCP - GeneralInternal [facility]09/30/22Team MemberRelationshipSpecialtyStart Date End Date Sylvester Jacob, DO [address] [place] [facility] [address] PCP - GeneralBannernal [facility]09/30/22Team MemberRelationshipSpecialtyStart Date End Date Sylvester Jacob DO [address] [place] [address] PCP - GeneralBannernal [facility]01/05/24Team MemberRelationshipSpecialtyStart Date End Date Sylvester Jacob, DO [address] [place] [facility] [address] PCP - [facility]09/30/22Team MemberRelationshipSpecialtyStart Date End Date Sylvester Jacob, DO [address] [place] [facility] [address] PCP - GeneralBannernal [facility]09/30/22Te MemberRelationshipSpecialtyStart Date End Date Sylvester Jacob, DO [address] [place] [address] PCP - GeneralInternal Medicine01/05/24 Goals (unrecognized section and content) Goals may [...] (unrecogniz ed section and content) ReasonOnset DateCommentsRefill Thxpjdn5505/06/2022ReasonCommentsBreast Cancer Follow upReasonCommentsFollow-up1 yearReasonCommentsPre-op Clearance6 weeks SpecialtyDiagnoses / ProceduresReferred By ContactReferred To ContactCardiology Diagnoses Mitral valve insufficiency, unspecified etiology Essential hypertension Procedures Follow Up In Cardiology Bryce Hendrickson MD [address] [facility] [address], [place] [address] Bryce Hendrickson MD [address] [facility] [address], [address] [place] [address] Referral IDStatusReasonStart DateExpiration DateVisits RequestedVisits [id number]/31/202310/30/[id number] Cancer ReasonCommentsFollow-up4 monthsSpecialtyDiagnoses / ProceduresReferred By ContactReferred To ContactCardiology Diagnoses Mitral valve insufficiency, unspecified etiology Procedures Follow Up In Cardiology Bryce Hendrickson MD [address] [facility] [address], [address] [address] Bryce Hendrickson MD [address] [place] [address], [place] [id number] Referral IDStatusReasonStart DateExpiration DateVisits RequestedVisits [id number]/16/202311/[id number] MammogramReasonCommentsAllergic RhinitisNasal polyp.TinnitusSpecialtyDiagnoses / ProceduresReferred By ContactReferred To ContactOtolaryngology Diagnoses Allergic rhinitis, unspecified Polyp of nasal cavity Tinnitus, bilateral Procedures [facility] Sylvester Jacob MD [address] [place] [address] Phone: tel: Chuck Cope MD [address] [facility] [address] [place] [address] Phone: tel: fax: Referral IDStatusReasonNodaway DateExpiration DateVisits RequestedVisits [id number]/31/20244/[id number] Sinusitis Follow up XR sinuses [facility] 03/23/24SpecialtyDiagnoses / ProceduresReferred By ContactReferred To ContactCardiology Diagnoses Mitral valve insufficiency, unspecified etiology Procedures Transthoracic Echo Complete NH ECHO TTHRC R-T 2D W/WOM-MODE COMPL SPEC&COLR D Bryce Hendrickson MD [address] [place] [address] [address], [address] [address] Referral IDStatusReasonNodaway DateExpiration DateVisits RequestedVisits [id number] Perform Procedure /[id number]-et4 monthSpecialtyDiagnoses / ProceduresReferred By ContactReferred To ContactCardiology Diagnoses Mitral valve insufficiency, unspecified etiology Procedures Follow Up In Cardiology Bryce Hendrickson MD [address] [facility] [address], [address] [address] Phone: tel: fax: Bryce Hendrickson MD [address] [place] [address] [address], [address] [address] Phone: tel: fax: Referral IDStatusReasonStart DateExpiration DateVisits RequestedVisits [id number]/14/20243/171707HayghvGfdwlhptJyzs careDeleonel Owen is a 73 y.o. female who presents for Nail Care.Patient relates she has been lettingher nails grow longer so she could kyrgyz them. Last visit 12/2022. ReasonCommentsFollow-upReasonOnset DateCommentscancel fu appt for ct scan not done07/03/2024ReasonOnset DateCommentsRefill Rbomkxk2308/07/2024ReasonComments Toenail CarePt is here today requesting nail [...] herfoot pain. Patient is requesting xrays today. [id number]-rbVnsddwm here for 8 month follow up for hypertension.SpecialtyDiagnoses / ProceduresReferred By ContactReferred To ContactCardiology Diagnoses Mitral valve insufficiency, unspecified etiology Procedures Follow Up In Cardiology Bryce Hendrickson MD [address] [facility] [address], [address] [address] Phone: tel: fax: Bryce Hendrickson MD [address] [place] [address] [address], [address] [address] Phone: tel: fax: Referral IDStatusReasonStart DateExpiration DateVisits RequestedVisits [id number]/2/20251/2/141231FhxnaeXqdynzfxYuqdZyyhouUsvlxrax Glaucoma Source Comments (unrecognize d section and content) In the event this informatio n is protected by the Federal Confidentiality of Alcohol and Drug Abuse Patient Records regulations: The Federal rules restrict any use of the information to criminally investigate or prosecute any alcohol or drug abuse patient.[facility] the event this information is protected by the Federal Confidentiality of Alcohol and Drug Abuse Patient Records regulations: The Federal rules restrict any use of the information to criminally investigate or prosecute any alcohol or drug abuse patient.[facility] the event this information is protected by the Federal Confidentiality of Alcohol and Drug Abuse Patient Records regulations: The Federal rules restrict any use of the information to criminally investigate or prosecute any alcohol or drug abuse patient.[facility] the event this information is protected by the Federal Confidentiality of Alcohol and Drug Abuse Patient Records regulations: The Federal rules restrict any use of the information to criminally investigate or prosecute any alcohol or drug abuse patient.[facility]on[facility] the event this information is protected by the Federal Confidentiality of Alcohol and Drug Abuse Patient Records regulations: The Federal rules restrict any use of the information to criminally investigate or prosecute any alcohol or drug abuse patient.[facility]on[facility] the event this information is protected by the Federal Confidentiality of Alcohol and Drug Abuse Patient Records regulations: The Federal rules restrict any use of the information to criminally investigate or prosecute any alcohol or drug abuse patient.[facility] FOR RECORDS PERTAINING TO PATIENTS WHO ARE [...] BE BASED ON THE PRIMARY CLINICAL RECORDS. [facility] [employer] [facility]. provides no warranty or guarantee of the accuracy or completeness of information in this document.
[2025-03-26 14:50] LABS: Protein Creatinine Ratio Urine 0.17; Total Protein Urine Random 12.4 mg/dL (<=11.9)
[2025-03-26 14:54] LABS: Alanine Aminotransferase 18 U/L (14-59); Albumin Globulin Ratio 0.9; Albumin Level 3.7 g/dL (3.4-5.0); Alkaline Phosphatase 84 U/L (46-116); Anion Gap 12.9; Aspartate Amino Transferase 19 U/L (15-37); Blood Urea Nitrogen 29.0 mg/dL (7.0-18.0); Calcium 9.4 mg/dL (8.5-10.1); Carbon Dioxide 29.5 mmol/L (21.0-32.0); Chloride 102 mmol/L (98-107); Estimated GFR (African America 50 (>=60 mL/min/1.73m^2); Estimated GFR (Non-African Ame 41 (>=60 mL/min/1.73m^2); Globulin 4.0 g/dL; Glucose 93 mg/dL (74-106); Potassium 4.4 mmol/L (3.5-5.1); Sodium 140 mmol/L (136-145); Total Protein 7.7 g/dL (6.4-8.2)
== END 2025-03-26 14:12 | disposition home or self-care (01) ==
LOC: LAB 14:12
PROVIDERS: PCP Internal Medicine; Visit Provider Internal Medicine Nephrology
DX: N17.9 Acute kidney failure, unspecified (principal); I50.20 Unspecified systolic (congestive) heart failure; N25.81 Secondary hyperparathyroidism of renal origin
CPT/HCPCS: 36415; 80053; 82570; 83970; 84100; 84156